=== PATIENT | female | born 1965 | race Caucasian/White ===

== ENCOUNTER → 2017-12-30 | Outpatient (CLI) | payer BC | LOC: M RAD 14:39 | DX: R04.2 Hemoptysis (principal); R91.8 Other nonspecific abnormal finding of lung field; I51.7 Cardiomegaly; Z98.1 Arthrodesis status | CPT/HCPCS: 71250 ==

== ENCOUNTER → 2017-12-31 | Outpatient (CLI) | payer BC | LOC: M RAD 14:39 | DX: Z12.31 Encounter for screening mammogram for malignant neoplasm of breast (principal) ==

== ENCOUNTER 2018-01-08 09:20 | Day surgery (SDC) | payer BC ==
[2018-01-08] MEDS ORDERED: ALBUTEROL SULFATE 2.5 MG/0.5 ML INH NEB SOLN INH ×2 (09:45)
[2018-01-08] MEDS ORDERED: D5W 1,000 ML IV ×2 (09:45)
[2018-01-08] MEDS ORDERED: LIDOCAINE 4% INJ 5 ML AMP INH ×2 (10:00)
[2018-01-08] MEDS ORDERED: NORCO, ANEXSIA 5/325MG TABLET (HYDROcodone/ACETAMINOPHEN) As Ordered ×2 (10:27)
[2018-01-08] MEDS: NORCO, ANEXSIA 5/325MG TABLET (HYDROcodone/ACETAMINOPHEN) PO ×2 (10:45)
[2018-01-08] MEDS ORDERED: EPINEPHrine 1MG/10ML SYRINGE 1.5IN As Ordered ×2 (10:48)
[2018-01-08] MEDS ORDERED: CETACAINE SPRAY 5GM As Ordered ×2 (10:48)
[2018-01-08] MEDS ORDERED: LR 1,000 ML IV ×4 (11:00→12:30)
[2018-01-08] MEDS ORDERED: fentaNYL 100 MCG/2 ML INJECTION (J3010) As Ordered ×2 (11:34)
[2018-01-08] MEDS ORDERED: MIDAZOLAM INJ 2 MG/2 ML VIAL (J2250) As Ordered ×2 (11:34)
[2018-01-08] MEDS ORDERED: NEOSTIGMINE 10 MG/10 ML VIAL (J2710) As Ordered ×2 (11:39)
[2018-01-08] MEDS ORDERED: ROCURONIUM BROMIDE 50 MG/5 ML VIAL As Ordered ×2 (11:39)
[2018-01-08] MEDS ORDERED: LIDOCAINE 2% INJ 100 MG/5 ML SDV (FOR ANES.) As Ordered ×2 (11:39)
[2018-01-08] MEDS ORDERED: GLYCOPYRROLATE INJ 0.2 MG/ML 2 ML VIAL As Ordered ×2 (11:39)
[2018-01-08] MEDS ORDERED: PROPOFOL 200 MG/20 ML VIAL As Ordered ×2 (11:39)
[2018-01-08] MEDS ORDERED: ONDANSETRON 4MG/2ML VIAL (J2405) IV ×2 (12:30)
[2018-01-08] MEDS ORDERED: fentaNYL 100 MCG/2 ML INJECTION (J3010) IV ×2 (12:30)
[2018-01-08] MEDS: ALBUTEROL SULFATE 2.5 MG/0.5 ML INH NEB SOLN INH ×2 (12:31)
== END 2018-01-08 13:53 | disposition home or self-care (01) ==
LOC: M SDC 09:20
DX: C34.12 Malignant neoplasm of upper lobe, left bronchus or lung (principal); I10 Essential (primary) hypertension; J44.9 Chronic obstructive pulmonary disease, unspecified; R04.2 Hemoptysis; R06.00 Dyspnea, unspecified; Z79.899 Other long term (current) drug therapy; F17.210 Nicotine dependence, cigarettes, uncomplicated; G47.33 Obstructive sleep apnea (adult) (pediatric); K21.9 Gastro-esophageal reflux disease without esophagitis; Z88.0 Allergy status to penicillin
CPT/HCPCS: 31623

== ENCOUNTER → 2018-01-14 | Outpatient (CLI) | payer BC | LOC: M PLARAD 10:06 | DX: C34.12 Malignant neoplasm of upper lobe, left bronchus or lung (principal) | CPT/HCPCS: 78815 ==

== ENCOUNTER → 2018-01-15 | Outpatient (CLI) | payer BC | LOC: M ONCR 08:51 | DX: C34.90 Malignant neoplasm of unspecified part of unspecified bronchus or lung (principal) ==

== ENCOUNTER → 2018-01-16 | Outpatient (REF) | payer BC ==
[2018-01-16 13:35] LABS: INR 0.92; PROTHROMBIN TIME 12.4 SECONDS (12.4-14.5)
[2018-01-16 13:36] LABS: PARTIAL THROMBOPLASTIN TIME 29.7 SECONDS (26.8-37.9)
== END ==
LOC: M LAB REF 12:41
DX: C34.12 Malignant neoplasm of upper lobe, left bronchus or lung (principal); Z72.0 Tobacco use
CPT/HCPCS: 85610

== ENCOUNTER → 2018-01-16 | Outpatient (CLI) | payer BC | LOC: M RAD 12:26 | DX: C34.90 Malignant neoplasm of unspecified part of unspecified bronchus or lung (principal); J90 Pleural effusion, not elsewhere classified | CPT/HCPCS: 71046 ==

== ENCOUNTER → 2018-01-21 | Outpatient (CLI) | payer BC ==
[~2018-01-21] MED LIST: ISOVUE-370 76% 100ML VIAL (Q9967) As Ordered
== END ==
LOC: M RAD 08:21
DX: C34.90 Malignant neoplasm of unspecified part of unspecified bronchus or lung (principal); Z88.0 Allergy status to penicillin; Z91.013 Allergy to seafood
CPT/HCPCS: Q9967

== ENCOUNTER → 2018-01-22 | Outpatient (CLI) | payer BC | LOC: M ONCR 08:55 | DX: C34.92 Malignant neoplasm of unspecified part of left bronchus or lung (principal) | CPT/HCPCS: G0463 ==

== ENCOUNTER 2018-01-28 10:43 | Outpatient (RCR) | payer BC | END 2018-01-31 | LOC: M ONCR 10:43 | DX: C34.02 Malignant neoplasm of left main bronchus (principal) | CPT/HCPCS: 77334 ==

== ENCOUNTER → 2018-01-28 | Outpatient (CLI) | payer BC | LOC: M RAD 09:03 | DX: C34.92 Malignant neoplasm of unspecified part of left bronchus or lung (principal) ==

== ENCOUNTER 2018-02-02 09:52 | Outpatient (RCR) | payer BC | END 2018-03-02 | LOC: M ONCR 09:52 | DX: C34.02 Malignant neoplasm of left main bronchus (principal) | CPT/HCPCS: 77300 ==

== ENCOUNTER → 2018-02-19 | Outpatient (CLI) | payer BC | LOC: M RAD 11:52 | DX: C34.12 Malignant neoplasm of upper lobe, left bronchus or lung (principal); R05 Cough | CPT/HCPCS: 71046 ==

== ENCOUNTER 2018-03-03 09:09 | Outpatient (RCR) | payer BC | END 2018-04-02 | LOC: M ONCR 09:09 | DX: C34.02 Malignant neoplasm of left main bronchus (principal) | CPT/HCPCS: 77336 ==

== ENCOUNTER 2018-04-03 10:40 | Outpatient (RCR) | payer BC | END 2018-05-02 | LOC: M ONCR 10:40 | DX: C34.02 Malignant neoplasm of left main bronchus (principal) | CPT/HCPCS: 77336 ==

== ENCOUNTER → 2018-04-23 | Outpatient (CLI) | payer BC | LOC: M RAD 13:53 | DX: C34.12 Malignant neoplasm of upper lobe, left bronchus or lung (principal); M85.80 Other specified disorders of bone density and structure, unspecified site | CPT/HCPCS: 71046 ==

== ENCOUNTER → 2018-05-07 | Outpatient (CLI) | payer BC | LOC: M RAD 08:05 | DX: R09.02 Hypoxemia (principal); I26.09 Other pulmonary embolism with acute cor pulmonale; I25.10 Atherosclerotic heart disease of native coronary artery without angina pectoris; R91.8 Other nonspecific abnormal finding of lung field | CPT/HCPCS: Q9967 ==

== ENCOUNTER → 2018-05-20 | Outpatient (CLI) | payer BC | LOC: M ONCR 10:04 | DX: C34.02 Malignant neoplasm of left main bronchus (principal) | CPT/HCPCS: G0463 ==

== ENCOUNTER → 2018-06-02 | Outpatient (CLI) | payer BC | LOC: M PLARAD 11:05 | DX: C34.12 Malignant neoplasm of upper lobe, left bronchus or lung (principal) | CPT/HCPCS: 78815 ==

== ENCOUNTER → 2018-07-02 | Outpatient (REF) | payer BC ==
[2018-07-02 18:29] LABS: FREE T4 1.16 NG/DL (0.76-1.46)
[2018-07-02 18:29] LABS: THYROID STIMULATING HORMONE 0.695 uIU/ML (0.358-3.740)
== END ==
LOC: M LAB REF 17:41
DX: Z51.81 Encounter for therapeutic drug level monitoring (principal); Z79.899 Other long term (current) drug therapy; C34.12 Malignant neoplasm of upper lobe, left bronchus or lung
CPT/HCPCS: 84443

== ENCOUNTER → 2018-07-29 | Outpatient (CLI) | payer BC | LOC: M RAD 10:55 | DX: M25.512 Pain in left shoulder (principal); C34.90 Malignant neoplasm of unspecified part of unspecified bronchus or lung | CPT/HCPCS: 71046 ==

== ENCOUNTER → 2018-07-29 | Outpatient (REF) | payer BC | LOC: M LAB REF 10:53 | DX: Z79.899 Other long term (current) drug therapy (principal); Z72.0 Tobacco use ==

== ENCOUNTER → 2018-07-31 | Outpatient (CLI) | payer BC | LOC: M RAD 07:50 | DX: R06.02 Shortness of breath (principal); C34.90 Malignant neoplasm of unspecified part of unspecified bronchus or lung; R91.8 Other nonspecific abnormal finding of lung field | CPT/HCPCS: Q9967 ==

== ENCOUNTER → 2018-08-12 | Outpatient (CLI) | payer BC | LOC: M ONCR 13:45 | DX: C34.02 Malignant neoplasm of left main bronchus (principal); Z99.81 Dependence on supplemental oxygen | CPT/HCPCS: G0463 ==

== ENCOUNTER → 2018-10-01 | Outpatient (CLI) | payer BC | LOC: M RAD 12:42 | DX: E05.00 Thyrotoxicosis with diffuse goiter without thyrotoxic crisis or storm (principal) | CPT/HCPCS: 78012 ==

== ENCOUNTER → 2018-10-23 | Outpatient (CLI) | payer BC ==
[~2018-10-23] MED LIST changes: +AZIT-12 PO; +GASTROGRAFIN SOLUTION 30ML (Q9963) As Ordered ONE; +IBUP200C25 PO; -ISOVUE-370 76% 100ML VIAL (Q9967) As Ordered; +ISOVUE-370 76% 100ML VIAL (Q9967) As Ordered ONE; +LOSA50TA5 PO; +LOSA50TA88 PO; +METO1TAB32 PO; +NICO21DI6 TD; +PANT20TA2 PO; +PANT40TA3 PO; +PRED10TA2 PO; +PROAAER10 INH; +SILV40CR EXT; +SING10TA32 PO; +SPIR1CAP INH; +SYMB16INH INH; +TYLE500T78 PO; +XARE20TA PO
--- NOTE | 2018-10-23 14:35 | REP ---
CT Head without contrast HISTORY: Headache COMPARISON: None Areas of decreased attenuation are present in the periventricular white matter. This represents small-vessel ischemic disease. There is no intraparenchymal hemorrhage, acute infarct, mass or midline shift. The ventricular system and cortical sulci are dilated consistent with minimal volume loss. There is no extra cerebral collection. There is no fracture. The visualized sinuses are clear. IMPRESSION: 1. Small vessel ischemic disease. 2. Minimal volume loss. Electronically Signed by Joao Bodn MD 10/23/2018 02:26 P
--- NOTE | 2018-10-23 15:16 | REP ---
CT CHEST WITH IV CONTRAST: HISTORY: Carcinoma of the lung, status post chemotherapy, radiation therapy, undergoing immunotherapy. Decreased oxygenation. Cough. Shortness of breath. Comparison CT studies are reviewed from July 31, 2018, May 07, 2018, and December 30, 2017. FINDINGS: There is some soft tissue fullness in the aorticopulmonary window region of the mediastinum adjacent to fibrotic-appearing left suprahilar lung tissue. This actually appears a little less prominent than on the most recent prior study of July 31, 2018. Previously, 3.4 cm, today 2.8 cm. No new mediastinal mass or adenopathy is observed. Some stable pericardial thickening is seen. There are three small new pulmonary parenchymal infiltrates, two in the left upper lobe and one in the superior segment of the left lower lobe. These are predominately alveolar infiltrates and may reflect pneumonia or conceivably postradiation pneumonitis. They are new from the prior study. The right lung remains essentially clear. No rib lesion is seen. Gonzalez rods remain in place in the thoracic spine. A right-sided Kothxh-B-Yuow catheter is noted. No extrathoracic mass or adenopathy is seen. No adrenal lesion is observed. IMPRESSION: There are three small new infiltrates in the left superior chest, question pneumonia versus developing postradiation fibrosis. The aorticopulmonary window region left suprahilar disease actually looks slightly smaller. Electronically Signed by Marv Carlisle MD 10/23/2018 05:01 P
--- NOTE | 2018-10-23 15:19 | REP ---
CT ABDOMEN AND PELVIS WITH IV AND ORAL CONTRAST: HISTORY: Lung carcinoma with headaches, cough, shortness of breath. CT CONTRAST DOSE: 100 mL of intravenous Isovue [address] FINDINGS: Preliminary digital manager intel radiograph shows an unremarkable bowel gas pattern. No adrenal lesion is seen. The liver is normal in size, homogeneous in texture. The spleen shows multiple granulomatous calcifications. No pancreatic abnormality is noted. The gallbladder is unremarkable. There is a cyst in the mid kidney on the left measuring 2.0 cm in greatest diameter. No retroperitoneal mass or adenopathy is seen. No uterine or adnexal abnormality is observed. Small and large intestinal bowel loops are unremarkable in the abdomen and pelvis. The appendix is surgically absent. IMPRESSION: No evidence of intra-abdominal metastatic disease. Electronically Signed by Marv Carlisle MD 10/23/2018 05:01 P
--- NOTE | 2018-10-23 16:50 | MEDONCTEEN ---
Date/Time of Encounter Date of Encounter: Oct 23, 2018 Time of Encounter: 16:47 Telephone Encounter Chantale reports mild cough, no fever, mild shortness of breath. CT scan today showed new infiltrates. Advised to start Prednisone and antibiotics. Prescription sent to pharmacy. Advised to go to ER if condition worsens or does not improve. HARINDER STEEL MD Oct 23, 2018 16:50
== END ==
LOC: M RAD 12:37
PROVIDERS: ATTEND Internal Medicine Medical Oncology
DX: C34.90 Malignant neoplasm of unspecified part of unspecified bronchus or lung (principal); R05 Cough; R06.02 Shortness of breath; R51 Headache
CPT/HCPCS: 70450; 71260; 74177; Q9963; Q9967

== ENCOUNTER → 2018-12-03 | Outpatient (REF) | payer BC ==
[~2018-12-03] MED LIST changes: -GASTROGRAFIN SOLUTION 30ML (Q9963) As Ordered ONE; -ISOVUE-370 76% 100ML VIAL (Q9967) As Ordered ONE; +PRED1TABL PO
== END ==
LOC: M LAB REF 11:45
PROVIDERS: ATTEND Internal Medicine Pulmonary Disease
DX: J44.9 Chronic obstructive pulmonary disease, unspecified (principal)

== ENCOUNTER → 2018-12-18 | Outpatient (CLI) | payer BC ==
[~2018-12-18] MED LIST changes: +MAGN400C PO
--- NOTE | 2018-12-18 14:45 | REP ---
SACRUM AND COCCYX, THREE VIEWS: HISTORY: Pain. There is no acute fracture or subluxation. The L5-S1 intervertebral disc is normal in height. IMPRESSION:There is no acute fracture or subluxation. Electronically Signed by Joao Bond MD 12/18/2018 03:13 P
--- NOTE | 2018-12-18 14:47 | REP ---
PELVIS, ONE VIEW: HISTORY: Pain. There is no acute fracture or dislocation. There is minimal narrowing of the hip joint spaces. IMPRESSION:There is no acute fracture or dislocation. Electronically Signed by Joao Bond MD 12/18/2018 03:14 P
== END ==
LOC: M RAD 13:49
PROVIDERS: ATTEND Internal Medicine Hematology & Oncology
DX: M53.3 Sacrococcygeal disorders, not elsewhere classified (principal); M54.18 Radiculopathy, sacral and sacrococcygeal region; Z85.118 Personal history of other malignant neoplasm of bronchus and lung

== ENCOUNTER → 2018-12-25 | Outpatient (CLI) | payer BC ==
--- NOTE | 2018-12-25 18:46 | REP ---
Whole body radionuclide bone scan: The patient has history of lung carcinoma. Comparison is 01/21/2018. There is bilaterally symmetric uptake in the acromioclavicular joints bilaterally compatible with osteoarthritis, unchanged. There is bilateral symmetric uptake in the ankles compatible with osteoarthritis. There is focal increased uptake in the cervical spine on the right. As an interval change. There is focal increased uptake in the lumbar spine on the left at the L4-5 level as an interval change. Impression: There is new focal uptake in the cervical spine and lumbar spine as described. There is degenerative uptake in the shoulders and ankles, unchanged. The study is performed with 21.8 mCi of technetium 99m labeled MDP. Electronically Signed by Jason Jenkins MD 12/25/2018 06:37 P
== END ==
LOC: M RAD 09:12
PROVIDERS: ATTEND Internal Medicine Hematology & Oncology
DX: M54.18 Radiculopathy, sacral and sacrococcygeal region (principal); R93.7 Abnormal findings on diagnostic imaging of other parts of musculoskeletal system; C34.90 Malignant neoplasm of unspecified part of unspecified bronchus or lung
CPT/HCPCS: 78306; A9503

== ENCOUNTER → 2019-01-05 | Outpatient (CLI) | payer BC ==
[~2019-01-05] MED LIST changes: +EMLA CREAM 5GM (LIDOCAINE/PRILOCAINE) As Ordered ONE; +ISOVUE-370 76% 100ML VIAL (Q9967) As Ordered ONE
--- NOTE | 2019-01-05 11:35 | REP ---
CT LUMBAR SPINE WITH IV CONTRAST: HISTORY: History of lung carcinoma. Most recent bone scan from December 25, 2018 showed a focal area of increased uptake in the lumbar spine on the left side at the L4-5 level. Comparison is made with prior abdomen CT study October 23, 2018, PET CT study June 02, 2018, and previous bone scan from December 25, 2018 as well as January 21, 2018. CT CONTRAST DOSE: 100 mL of intravenous Isovue [address] FINDINGS: The patient has Gonzalez rods in place in the thoracic spine bilaterally. There is partial collapse of the superior endplate of the L1 vertebral body as seen on CT study from 10/23/2018. There is approximately 25 % loss of anterior vertebral body heights. There is slight retropulsion of the posterior cortex of L1 superiorly. These findings are unchanged from the recent CT study of the abdomen. Vertebral body heights are otherwise preserved. There is a very subtle abnormality in the superior articular facet of the L5 vertebral body. A 1 cm area of subtle radiolucency is seen here with cortical thinning and partial disruption. This is felt to correspond with the area of new uptake on recent bone scan. I cannot exclude a 1 cm metastatic lesion. The adjacent L4-5 facet shows osteoarthritis and it is possible that this reflects a arthritis associated cyst. These do not usually erode the cortex. There is no adjacent soft tissue mass visible. No other focal bony destructive lesion is seen. There is a cyst visible in the left kidney unchanged. IMPRESSION: Subtle 1 cm radiolucency with overlying cortical thinning and erosion in the superior articular facet on the left side at the L5 vertebral body. This is felt to correspond to the radionuclide activity on bone scan. I cannot exclude a metastatic lesion. Repeat PET/CT study may be helpful for further evaluation. Alternatively, a percutaneous CT-guided needle biopsy could be contemplated although this would be a challenging location. Electronically Signed by Marv Carlisle MD 01/05/2019 02:42 P
--- NOTE | 2019-01-05 11:51 | REP ---
CT CERVICAL SPINE WITH IV CONTRAST: HISTORY: Abnormal findings on recent bone scan. Focus of increased uptake in the right mid cervical spine posteriorly. CT CONTRAST DOSE: 100 mL of intravenous Isovue [address] FINDINGS: There is osteoarthritic facet sclerosis and bony spurring in the right C 3-4 facet joint. This corresponds to location of the increased uptake on bone scan. No bony destructive lesion is seen by CT at this level or elsewhere. A developmentally bifid spinous process is noted at C5. There is minimal facet hypertrophy bilaterally in the mid cervical spine visible on coronal re-formation images but the right 3-4 facet shows the most pronounced involvement. There is an opacity in the parenchyma of the left lung apex consistent with postradiation change as seen on 10/23/2018 CT study of the chest. No other significant finding. IMPRESSION: Osteoarthritic facet hypertrophy most pronounced on the right at the C3-4 facet. This is felt to correspond with the area of increased uptake on radionuclide bone scan. No bony destructive lesion is appreciated. Electronically Signed by Marv Carlisle MD 01/05/2019 02:43 P
== END ==
LOC: M RAD 09:25
PROVIDERS: ATTEND Internal Medicine Hematology & Oncology
DX: R93.7 Abnormal findings on diagnostic imaging of other parts of musculoskeletal system (principal); M47.892 Other spondylosis, cervical region; Z85.118 Personal history of other malignant neoplasm of bronchus and lung
CPT/HCPCS: 72126; 72132; Q9967

== ENCOUNTER → 2019-01-11 | Outpatient (CLI) | payer BC ==
[~2019-01-11] MED LIST changes: -EMLA CREAM 5GM (LIDOCAINE/PRILOCAINE) As Ordered ONE; -ISOVUE-370 76% 100ML VIAL (Q9967) As Ordered ONE
--- NOTE | 2019-01-11 18:10 | REPMRS ---
Patient History The patient states she had a clinical breast exam in 2017. Patient is postmenopausal, had previous chest radiation therapy at age 52, has history of lung cancer at age 52, had previous chemotherapy at age 52, and is nulliparous. Family history of unknown cancer at age 50 or over in maternal grandfather, unknown cancer at age 50 or over in paternal grandfather. 15 pound weight loss due to chemo. Digital Mammo Screening Bilat: January 11, 2019 - Exam #: [id number] Bilateral CC and MLO view(s) were taken. Technologist: Meghann Liz, Technologist Prior study comparison: December 31, 2017, bilateral digital mammo screening bilat performed at [facility]. March 18, 2017, bilateral digital mammo screening bilat, performed at [facility]. FINDINGS: There are scattered fibroglandular densities. There has been no change in the appearance of the mammogram from the prior studies. There is a mild amount of residual fibroglandular tissue which is fairly symmetric. There is no interval development of dominant mass, architectural distortion, or clustered microcalcification suggestive of malignancy.There are scattered, small, benign calcifications of doubtful clinical significance. Scattered lymph nodes are seen in the left axilla. 3-D tomosynthesis shows no additional findings. No significant changes when compared with prior studies. Assessment: BI-RADS/ACR category 2 mammogram. Benign Findings. Recommendation Routine screening mammogram in 1 year (for women over age 40). This mammogram was interpreted with the aid of an FDA-approved computer-aided dectection system. A. Negative x-ray reports should not delay biopsy if a dominant or clinically suspicious mass is present. B. Four to eight percent of cancers are not identified by mammography. C. Adenosis and dense breast may obscure an underlying neoplasm. Electronically Signed By: Issac Damian MD 01/11/19 [id number]
== END ==
LOC: M RAD 15:02
PROVIDERS: ATTEND Nurse Practitioner Family
DX: Z12.31 Encounter for screening mammogram for malignant neoplasm of breast (principal); Z80.9 Family history of malignant neoplasm, unspecified; Z85.118 Personal history of other malignant neoplasm of bronchus and lung; Z92.21 Personal history of antineoplastic chemotherapy; Z92.3 Personal history of irradiation

== ENCOUNTER → 2019-01-14 | Outpatient (CLI) | payer BC ==
[~2019-01-14] MED LIST changes: +EMLA CREAM 5GM (LIDOCAINE/PRILOCAINE) As Ordered ONE; +GASTROGRAFIN SOLUTION 30ML (Q9963) As Ordered ONE; +ISOVUE-370 76% 125ML VIAL (Q9967 PER ML) As Ordered ONE
--- NOTE | 2019-01-15 03:44 | REP ---
Clinical: Carcinoma of the lung. Chest pain. Technique: Axial contrast enhanced images from the thoracic inlet to the upper abdomen with coronal and sagittal re-formations using 100 ml Isovue 370 intravenous contrast material. Comparison: 10/23/2018. Findings: Significant areas of consolidation with air bronchograms noted primarily involving the left upper lobe and to a somewhat lesser extent the lingula and left lower lobe which have a similar distribution to prior examination but have considerably increased in size. Right hemithorax demonstrates minimal suspected chronic change at the right base. No effusion. No pneumothorax. No obvious axillary, hilar, or mediastinal adenopathy is appreciated. Tracheobronchial tree appears relatively patent. Thoracic aorta, pulmonary vasculature and heart/pericardium are relatively stable with mild atherosclerotic changes again noted. No cardiomegaly. No significant pericardial effusion. Thyroid gland is normal. Musculoskeletal structures are stable. Gonzalez rods again noted. Hokhis-B-Drca identified with tip in the SVC. Impression: [id number] areas of consolidation primarily noted in the left upper lobe and to a somewhat lesser extent the lingula and left lower lobe. No significant adenopathy. Differential diagnosis includes but is not limited to multifocal pneumonia, recurrent neoplasm, and post radiation type changes. Electronically Signed by Timmy Jain MD 01/15/2019 03:35 A
--- NOTE | 2019-01-15 03:54 | REP ---
Clinical: Lung carcinoma. Technique: Axial contrast enhanced images from the lung bases to the pubic symphysis using oral (per protocol) and 100 ml Isovue 370 intravenous contrast material with precontrast and delayed images of the abdomen as well as coronal and sagittal re-formations. Comparison: 10/23/2018. Findings: Lung bases demonstrate minimal chronic changes at the right base. Visualized heart and pericardium grossly normal. Liver, pancreas, gallbladder, bilateral adrenal glands and right kidney are normal. Left kidney includes stable 1.8 cm simple cyst. Spleen demonstrates parenchymal calcifications consistent with prior granulomatous disease. The enteric system is without obstruction or acute inflammatory process. Pelvis demonstrates partially collapsed normal bladder and age-appropriate uterus/adnexa findings to suggest prior right oophorectomy. No pelvic fluid or ascites. No significant intraperitoneal or retroperitoneal adenopathy. No free air. Abdominal aorta without aneurysm or dissection. Surrounding musculoskeletal structures are intact. Gonzalez rods noted through the visualized thoracic spine. Impression: 1. No acute abdominopelvic pathology appreciated. 2. Stable simple left renal cyst. 3. No evidence for metastatic disease. No ascites. No adenopathy. No focal inflammatory changes. Electronically Signed by Timmy Jain MD 01/15/2019 03:45 A
== END ==
LOC: M RAD 13:47
PROVIDERS: ATTEND Nurse Practitioner Family
DX: R10.9 Unspecified abdominal pain (principal); C34.12 Malignant neoplasm of upper lobe, left bronchus or lung; J44.9 Chronic obstructive pulmonary disease, unspecified; N28.1 Cyst of kidney, acquired
CPT/HCPCS: 71260; 74178; Q9963; Q9967

== ENCOUNTER → 2019-01-20 | Outpatient (CLI) | payer BC ==
[~2019-01-20] MED LIST changes: +DOXY-350 PO; -EMLA CREAM 5GM (LIDOCAINE/PRILOCAINE) As Ordered ONE; -GASTROGRAFIN SOLUTION 30ML (Q9963) As Ordered ONE; -ISOVUE-370 76% 125ML VIAL (Q9967 PER ML) As Ordered ONE
--- NOTE | 2019-01-21 01:49 | REP ---
Clinical: Cough and history of lung cancer. Technique: PA and lateral. Comparison: 11/05/2018. Findings: Diffuse opacification involving the left hemithorax consistent with multifocal pneumonia. The mediastinum and cardiac silhouette are incompletely evaluated due to opacifications involving the left hemithorax. The right hemithorax is relatively well aerated and clear. No definite effusion or pneumothorax appreciated Gonzalez rods through the thoracic spine noted along with Ijshdq-C-Onum extending into the SVC. Skeletal structures are intact. Impression: Diffuse opacities involving the left hemithorax consistent with multifocal pneumonia. Electronically Signed by Timmy Jain MD 01/21/2019 01:41 A
== END ==
LOC: M RAD 12:12
PROVIDERS: ATTEND Nurse Practitioner Family
DX: J18.9 Pneumonia, unspecified organism (principal)

== ENCOUNTER → 2019-01-26 | Outpatient (CLI) | payer BC ==
--- NOTE | 2019-01-26 17:07 | REP ---
PET/CT: History: Restaging left upper lobe lung malignancy. Comparisons: Comparison is made with prior PET-CT studies from June 02, 2018 and January 14, 2018. Comparison chest CT study January 14, 2019. Comparison CT lumbar spine exam January 05, 2019. TECHNIQUE: 71 minutes following the intravenous injection of a 8.2 mCi dose of F-18 FDG, three-dimensional PET scintigraphy is acquired from the skull base to the proximal thighs. Triplanar noncontrast CT scanning is acquired through the same anatomic range for attenuation correction, and image registration with scan parameters optimized to minimize radiation exposure to the patient. PET scintigraphy and CT datasets were fused and displayed on a workstation with multiplanar and projection display capability. PET/CT Findings: Head and neck soft tissues are unremarkable. There is a right-sided Fewvtn-O-Hlha catheter again noted. The previously noted left hilar and aorticopulmonary we region hypermetabolic mass is no longer apparent. There is considerable consolidation and fibrosis in the left lung particularly in the upper lobe but also in the lingula and to a lesser extent the lower lobe. This consistent with postradiation pneumonitis and/or infectious pneumonitis. It is not typical of recurrent malignancy. Maximum standard uptake value within this pulmonary parenchymal opacification processes 6.28. Maximum standard uptake in the left hilar and perihilar region is decreased to 3.0. There is some mildly increased extrathoracic soft tissue uptake along the left chest again consistent with postradiation change. There is a new focus of hypermetabolic uptake involving the posterior elements on the left side at the L5 vertebral body. Maximum standard uptake value here is 26.14. This corresponds to the subtle radiolucency seen on recent lumbar spine CT study. It corresponds with the recent area of increased uptake on bone scan. No other abnormal skeletal hypermetabolic uptake focus is seen. Impression: Hypermetabolic uptake is seen in a new focus involving the posterior elements of the L5 vertebral body on the left consistent with a skeletal metastasis. Left hilar and left mediastinal uptake is improved. There is a post radiation pneumonitis and/or inflammatory pneumonitis pattern in the left lung. No other abnormal hypermetabolic uptake is seen. Electronically Signed by Marv Carlisle MD 01/26/2019 05:27 P
== END ==
LOC: M PLARAD 11:16
PROVIDERS: ATTEND Internal Medicine Hematology & Oncology
DX: C34.12 Malignant neoplasm of upper lobe, left bronchus or lung (principal); J84.10 Pulmonary fibrosis, unspecified; J70.0 Acute pulmonary manifestations due to radiation
CPT/HCPCS: 78815; A9552

== ENCOUNTER → 2019-02-01 | Outpatient (CLI) | payer BC ==
[~2019-02-01] MED LIST changes: +ISOVUE-370 76% 125ML VIAL (Q9967 PER ML) As Ordered ONE
--- NOTE | 2019-02-01 14:32 | REP ---
CT HEAD WITH AND WITHOUT CONTRAST: HISTORY: Lung carcinoma. CONTRAST: Isovue 370, 75 mL. COMPARISON: 01/21/2018 There is no intraparenchymal hemorrhage, mass or midline shift. There is no abnormal enhancement. The ventricular system is normal in appearance. There is no extracerebral collection. The visualized sinuses are clear. IMPRESSION: There is no intracranial lesion. Electronically Signed by Joao Bond MD 02/01/2019 02:34 P
== END ==
LOC: M RAD 13:27
PROVIDERS: ATTEND Internal Medicine Medical Oncology
DX: C34.90 Malignant neoplasm of unspecified part of unspecified bronchus or lung (principal)
CPT/HCPCS: 70470; Q9967

== ENCOUNTER → 2019-02-02 | Outpatient (CLI) | payer BC ==
[~2019-02-02] MED LIST changes: +ARTH650T17 PO; -ISOVUE-370 76% 125ML VIAL (Q9967 PER ML) As Ordered ONE
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
== END ==
LOC: M ONCR 08:48
PROVIDERS: ATTEND Radiology Radiation Oncology
DX: C79.51 Secondary malignant neoplasm of bone (principal); C34.12 Malignant neoplasm of upper lobe, left bronchus or lung; Z98.1 Arthrodesis status; R63.0 Anorexia; R53.83 Other fatigue; F41.9 Anxiety disorder, unspecified; H53.9 Unspecified visual disturbance

== ENCOUNTER 2019-03-01 14:43 | Outpatient (RCR) | payer BC ==
--- NOTE | 2019-02-10 11:29 | RADONC ---
RADIATION ONCOLOGY SIMULATION NOTE DATE: 02/10/2019 CHART NUMBER: [id number] Ms. Hurst was taken to the CT scan for CT simulation of her lumbar field. CT was accomplished without difficulty or discomfort. Radiation treatment planning is underway and radiation treatments will begin subsequently. An immobilization device was created without difficulty or discomfort. It will be used throughout the course of treatment. I was physically present throughout the course of CT simulation.
--- NOTE | 2019-03-03 08:30 | RADONC ---
RADIATION ONCOLOGY TREATMENT SUMMARY DATE: 03/01/2019 CHART NUMBER: [id number] DIAGNOSIS: Left lung cancer. STAGE: III C, T4N3M0 versus stage IV, T4N3M1 now clearly metastatic. ECOG PERFORMANCE STATUS: 0 TREATMENT SUMMARY: Ms. Hurst is a very pleasant, 53-year-old white female with the diagnosis of metastatic poorly differentiated adenocarcinoma of the left upper lobe who presented to us for consideration of palliative radiation therapy for bone metastasis to the L5 vertebral area. We treated the patient from L4 through the SI joints for a total dose of 3000 cGy delivered in 10 fractions of 300 cGy each over 13 elapsed days from 02/16/2019 through 03/01/2019. The patient's lumbar spine was treated on a linear accelerator utilizing a 15 MV photon by beam via single posterior field prescribed to a depth of 8 cm. Ms. Hurst tolerated her treatments quite well and completed therapy as prescribed without interruption. I have scheduled the patient to see me again in 1 month for further followup. She will also continue to be followed by her other physicians as well. Thank you for allowing us to participate in the care of this very pleasant woman. If I could be of any further assistance or provide you with any information, please free to contact me at anytime. As always, warm regards. cc: MD Maria Esther Schulte MD Robert Johnson, MD Rory Sears, DO [facility]
== END 2019-03-02 ==
LOC: M ONCR 14:43
PROVIDERS: ATTEND Radiology Radiation Oncology
DX: C34.02 Malignant neoplasm of left main bronchus (principal); C79.51 Secondary malignant neoplasm of bone

== ENCOUNTER → 2019-03-31 | Outpatient (CLI) | payer BC ==
--- NOTE | 2019-03-31 16:32 | RADONC ---
RADIATION ONCOLOGY FOLLOWUP NOTE DATE: 03/31/2019 CHART NUMBER: [id number] DIAGNOSIS: Left lung cancer. STAGE: III C, T4N3M0 versus IV, T4N3M1 now clearly metastatic. ECOG PERFORMANCE STATUS: 0 FOLLOWUP NOTE: Ms. 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 The patient presents today reporting that she is doing quite well with no complaints at this time related to her radiation therapy or disease. She has no difficulty breathing. She reports that the pain in her low back has improved significantly. She has no other areas of discomfort. REVIEW OF SYSTEMS: The patient's review of systems is positive for some residual low back pain but is otherwise noncontributory. Denies nausea, vomiting, fevers, chills, night sweats, diplopia, headaches, anxiety or depression, anorexia, weight loss, visual disturbances, chest pain, urinary or bowel difficulties, bone pain, or neurological problems. PHYSICAL EXAMINATION: The patient is a well-developed, well-nourished, 53-year-old white female in no acute distress. HEENT exam is normocephalic, atraumatic. Extraocular movements are intact. There is no palpable cervical, supraclavicular, infraclavicular, axillary, or inguinal lymphadenopathy present. Lungs are clear to auscultation and percussion. Heart has a regular rate and rhythm. Abdomen is benign with no hepatosplenomegaly, masses, or tenderness. Skeletal examination reveals no tenderness to pressure or percussion of the bony skeleton. Extremities reveal no clubbing, cyanosis, or edema. Neurologic exam is grossly intact, as is the remainder of the physical examination. ASSESSMENT: The patient is clinically JOHNSON at this time. She is being seen and treated every 2 weeks by her medical oncologist, Dr. Minor and therefore is being discharged from my followup except on a p.r.n. basis. cc: MD Maria Esther Schulte MD Robert Johnson, MD Rory Sears, DO [facility]
== END ==
LOC: M ONCR 14:33
PROVIDERS: ATTEND Radiology Radiation Oncology
DX: C34.90 Malignant neoplasm of unspecified part of unspecified bronchus or lung (principal); C79.9 Secondary malignant neoplasm of unspecified site

== ENCOUNTER → 2019-04-12 | Outpatient (CLI) | payer BC ==
--- NOTE | 2019-04-12 18:23 | REP ---
REASON: New onset right sided rib pain. Four views were obtained with frontal view of the chest. The accompanying frontal view of the chest has been compared to the prior two view examination of the chest of 01/2019. The accompanying frontal view of the chest is unchanged from the prior exam showing chronic changes but stable in appearance. Four views of the right ribs show no evidence of a definite acute fracture. IMPRESSION: Chronic lung field changes status quo. No evidence of an acute rib fracture. Electronically Signed by Pedro Pablo Simmons DO 04/13/2019 11:19 A
== END ==
LOC: M RAD 15:37
PROVIDERS: ATTEND Nurse Practitioner Family
DX: R07.81 Pleurodynia (principal); C34.12 Malignant neoplasm of upper lobe, left bronchus or lung

== ENCOUNTER → 2019-04-28 | Outpatient (CLI) | payer BC ==
--- NOTE | 2019-04-29 12:02 | REP ---
PET/CT: HISTORY: Restaging non-small cell lung carcinoma. The patient is status post chemotherapy. Oligometastatic disease at L5 status post palliative radiation therapy. Renewed low back pain symptoms and new left supraclavicular swelling. Rule out additional metastatic disease. COMPARISONS: Comparison PET/CT study is from January 26, 2019. TECHNIQUE: 59 minutes following the intravenous injection of a 8.26 mCi dose of F-18 FDG, three-dimensional PET scintigraphy is acquired from the skull base to the proximal thighs. Triplanar noncontrast CT scanning is acquired through the same anatomic range for attenuation correction, and image registration with scan parameters optimized to minimize radiation exposure to the patient. PET scintigraphy and CT datasets were fused and displayed on a workstation with multiplanar and projection display capability. PET/CT FINDINGS: There is a 7 cm lymph node in the supraclavicular fat of the left lower neck which displays discernible but non-hypermetabolic uptake, maximum SUV 1.45. In the left upper chest, there is extensive consolidation and volume loss in the left upper lobe lung parenchyma morphologically consistent with postradiation pneumonitis. There is some hypermetabolic uptake fairly diffusely in this opacified lung parenchyma and pleuroparenchymal reaction. Maximum standard uptake value ranges up to 5.22. There is some skeletal muscle non-hypermetabolic uptake anteriorly and posteriorly on the left also compatible with postradiation change/myositis. No other abnormal hypermetabolic uptake is seen with in the thorax. The previously noted L5 posterior element metastatic site is improved showing sclerosis and increased bone density suggesting healing. Maximum standard uptake value is 2.84. Previously, maximum standard uptake value here was 26.14. There is unfortunately, a new focus of moderately hypermetabolic uptake involving the pedicle and posterior elements on the right side at the T12 level. Maximum standard uptake value here is 6.76. This was not visible previously. No other suspicious skeletal hypermetabolic focus is seen. In comparison with the prior study, the left upper lobe lung consolidation and uptake are felt to be unchanged. L5 is improved. T12 is new. The equivocal supraclavicular lymph node appears to be unchanged. IMPRESSION: There is a new metastatic focus in the posterior elements on the right side at the T12 vertebral body level. The previously noted and recently treated L5 metastasis has an improved appearance. No other new focus. Postradiation changes are again noted in the left chest. Electronically Signed by Marv Carlisle MD 04/29/2019 02:23 P
== END ==
LOC: M PLARAD 13:35
PROVIDERS: ATTEND Internal Medicine Medical Oncology
DX: C34.12 Malignant neoplasm of upper lobe, left bronchus or lung (principal); C79.51 Secondary malignant neoplasm of bone
CPT/HCPCS: 78815; A9552

== ENCOUNTER → 2019-05-04 | Outpatient (CLI) | payer BC ==
--- NOTE | 2019-05-04 15:15 | RADONC ---
RADIATION ONCOLOGY NEW PATIENT CONSULTATION: DATE: 05/04/2019 CHART NUMBER:[id number] DIAGNOSIS: Her diagnosis is originally stage III B, T2b, N3, M0, left upper lobe poorly differentiated adenocarcinoma, PDL low, VeriStrat good, grab driver mutation negative, diagnosed January 2018. She is status post radiotherapy and currently on adjuvant durvalumab. She had an oligometastatic focus at L5 in January 2019, which was treated with palliative radiotherapy February 2019 and now has evidence of a new metastatic focus in her T12 vertebral body. STAGE: IV, T2b, N3, M1(bone). ICD-10 code: 79.51. ECOG PERFORMANCE STATUS: 0-1. HISTORY OF PRESENT ILLNESS: The patient is a 53-year-old lady who is fairly well known to our department as we have treated her for her known history of poorly differentiated adenocarcinoma involving the left upper lobe. She was treated both to the left upper lobe and to a metastatic lesion at L5. She has done quite well with both treatments as the area of the tumor primary, on a recent PET/CT scan, showed diffuse opacified lung parenchyma and a SUV value of 5.22. The L5 vertebral body had a metastatic focus, which was most recently treated and that metastatic focus had gone from an SUV of 26.14 to and SUV value of 2.84. Overall, the patient has felt quite well but most recently has had pain involving the right side, which she rates at a pain level of 6/10. On the PET scan, which was dated 04/28/2019, a focus of moderate hypermetabolic uptake is located on the right side of the T12 vertebral body corresponding to her area of pain. This area was not visible previously and there are no other suspicious skeletal hypermetabolic foci seen. In light of this new area of pain and increased activity involving the T12 vertebral body, she comes for evaluation of local regional radiotherapy. PAST MEDICAL HEALTH: Medical Issues: Cancer of the lung with bone metastasis. Hypertension. T7-T8 crush fracture in 1987 at the age of 22. L1 lumbar vertebral fracture. SURGICAL PROCEDURES: She had. Gonzalez rods placed in the past because of a T7-8 crush fracture in 1987. She had an appendectomy. Dilation and curettage times two. Right heel spur removed. Septoplasty. Spinal fusion T7-T8. Tonsillectomy. Tubal ligation. FAMILY HISTORY: Maternal grandmother from cancer involving the bone. Paternal grandfather from cancer involving the lung. SOCIAL HISTORY: She smoked one pack per day for 38-pack years. Alcohol history: She drinks only occasionally. ALLERGIES: Seafood causes shock and unconsciousness. PENICILLIN causes skin rashes and hives. PAIN RATING: She rates her pain is currently at a 6/10. CURRENT MEDICATIONS: - Ibuprofen p.r.n. - durvalumab 840 mg IV q. 2 weeks - albuterol - pantoprazole 40 mg - Tiotropium bromide 18 mcg - rivaroxaban 20 mg p.o. daily - budesonide 160-4.5 mcg inhaler 2 puffs b.i.d. REVIEW OF SYSTEMS: RESPIRATORY: The patient uses oxygen daily. She has an occasional cough, some dyspnea when she does not use her oxygen. Denies hemoptysis, hiccups. Denies pleuritic chest pain, occasional wheezing. NEUROLOGIC: Denies disorientation dizziness, gait, headaches, insomnia, memory loss neuropathy, paralysis, seizure activity, sensory deficits or stroke. INTEGUMENTARY: The patient has pain, which radiates along the right side of the paraspinal region causing pain, which she rates at a 6/8 and is a neuropathic type of pain. She denies alopecia, blisters, bruising, dry skin, facial burning, photosensitivity, pruritus or rash. IMMUNOLOGIC LYMPHATIC: Denies easy bruising or lymphadenopathy. GENITOURINARY: Denies dysuria, frequency genital masses, hematuria, incontinence, nocturia renal stones, sexual dysfunction, urgency, vaginal discharge or spotting. GASTROINTESTINAL: Denies changes in bowel habits, constipation, diarrhea, heartburn, dyspepsia, hematemesis, hematochezia, hemorrhoids, melanin, nausea, pain, satiety, early satiety or vomiting. HEENT: Denies ear pain, epistaxis, esophagitis, hearing difficulty, mouth dryness, oral bleeding, otitis, sinusitis, sputum production, stomatitis, taste alteration or tinnitus. ENDOCRINE: Denies diabetes hot flashes, menstrual irregularities or thyroid disease. CONSTITUTIONAL: Denies appetite changes, fatigue, fevers, lethargy, malaise, night sweats, rigors or significant weight change. CARDIOVASCULAR: Denies arrhythmias chest pain, dyspnea, edema, orthopnea, palpitation. BREASTS: The patient denies any breast masses, nipple discharge, nipple inversion or pain. VITALS: O2 saturation 100%. Diastolic 87, systolic 134, respirations 18, pulse 80, temperature 98.1, weight 190, height 60 inches. HEENT: Normocephalic. EOMs intact. PERRLA. Fundi benign. LYMPHATICS: No palpable overt lymphadenopathy. LUNGS: Clear but consistent with COPD. HEART: Regular without audible murmurs. ABDOMEN: Without evidence of hepatomegaly, masses, deep abdominal tenderness. EXTREMITIES: Without cyanosis, clubbing or edema. NEUROLOGIC: Examination grossly physiologic and nonfocal. IMPRESSION: Left upper lobe poorly differentiated adenocarcinoma PD-L1 low, VeriStrat good, grab driver mutation negative involving the left upper lobe diagnosed in January 2018 status post radiotherapy and chemotherapy currently on durvalumab. The patient underwent radiotherapy for a focus of disease at L5 and had previously undergone local regional radiotherapy to the tumor primary. She now has pain in the lower thoracic spine which radiates slightly to the paraspinal area. Most recent CT scan obtained on 04/28/2019 revealed evidence of a new lesion at the involving the T12 vertebral body on the right side. This radiologic findings is consistent with her clinical disease. PLAN OF RADIOTHERAPY: The patient would be an excellent candidate to receive palliative local regional radiotherapy to the T12 vertebral body for a total dose of 3000 cGy administered at conventional (300 cGy) fractions. Prior to treatment delivery localization will be accomplished upon our CT simulator and treatment portals defined by the use of multiple leaf collimators. The indications, possible side effects as well as all potential alternatives have been explained to the patient in detail. She understands and is willing to proceed as outlined. Thank you for allowing us the opportunity of participation in the management of this very fern lady. Most sincerely, CC: MD Franca Cintron
== END ==
LOC: M ONCR 09:42
PROVIDERS: ATTEND Radiology Radiation Oncology
DX: Z92.3 Personal history of irradiation (principal); Z85.9 Personal history of malignant neoplasm, unspecified

== ENCOUNTER 2019-06-01 13:43 | Outpatient (RCR) | payer BC ==
--- NOTE | 2019-05-13 16:00 | RADONC ---
RADIATION ONCOLOGY SIMULATION NOTE DATE: 05/12/2019 CHART NUMBER: [id number] SIMULATION NOTE: Ms. Hurst was taken to the CT scan for CT simulation of her thoracic spinal field. CT was accomplished without difficulty or discomfort. Radiation treatment planning is underway and radiation treatments will begin subsequently. An immobilization device was created and will be used throughout the course of treatment. It was created without difficulty or discomfort. I was physically present throughout the course of CT simulation.
--- NOTE | 2019-05-20 16:18 | MEDONCTEEN ---
MEDICAL ONCOLOGY TELEPHONE NOTE DATE OF SERVICE: 05/19/2019 I spoke with Chantale about Dr. Neftaly Johnson's recommendation for her to continue durvalumab indefinitely. She has had a second bone metastasis focus, starts palliative radiation today, but no other sites of disease and no visceral disease. She evolved two small bone metastases, symptomatic, sequentially, while on adjuvant durvalumab and we are currently recommending continuing durvalumab indefinitely. If she has another new id metastatic focus under durvalumab this would be an indication for treatment change. Nayana is agreeable with this plan, thanked me for the call. Begins palliative radiation today. Will postpone her durvalumab until she has completed radiation. Electronically Signed by Maria Esther Minor MD 05/20/2019 06:11 P DD: Maria Esther Minor MD 05/19/2019 08:32 A DT: dario 05/20/2019 04:12 P CC:
--- NOTE | 2019-05-26 08:08 | RADONC ---
RADIATION ONCOLOGY PROGRESS NOTE DATE: 05/24/2019 CHART NUMBER: [id number] Ms. Hurst is presently at a dose of 1200 cGy to her spine and is tolerating treatments quite well at this point with no complaints related to her radiation therapy. She is having no new spinal discomfort. The patient's review of systems is noncontributory. Denies nausea, vomiting, fevers, chills, night sweats, diplopia, headaches, anxiety or depression, anorexia, weight loss, visual disturbances, chest pain, urinary or bowel difficulties, bone pain, or neurological problems. PHYSICAL EXAMINATION: The patient's skin is in good condition with no evidence of moist or dry desquamation. The remainder of her physical exam remains unchanged. Ms. Hurst is tolerating treatments quite well and radiation will continue as scheduled.
--- NOTE | 2019-06-01 10:53 | RADONC ---
RADIATION ONCOLOGY PROGRESS NOTE: DATE: 05/31/2019 CHART NUMBER: [id number] Ms. Hurst is presently at a dose of 2700 cGy to her thoracic spine from the level of T11-L1. She is tolerating her treatments quite well with no complaints at this time related to her radiation therapy. REVIEW OF SYSTEMS: The patient's review of systems is positive for some discomfort present over the T12 region, mostly laterally but is otherwise noncontributory. She denies nausea, vomiting, fevers, chills, night sweats, diplopia, headaches, anxiety or depression, anorexia, weight loss, visual disturbances, chest pain, urinary or bowel difficulties, bone pain, or neurological problems. PHYSICAL EXAMINATION: The patient's skin is in good condition with no evidence of radiation change present. There is no moist or dry desquamation. The remainder of her physical exam remains unchanged. Ms. Hurst is tolerating treatments quite well and radiation is scheduled for completion tomorrow.
[2019-06-02] MEDS ORDERED: IBUP-1114 PO (09:47)
--- NOTE | 2019-06-02 15:10 | RADONC ---
RADIATION ONCOLOGY TREATMENT SUMMARY DATE: 06/01/2019 CHART NUMBER: [id number] Ms. Hurst is a very pleasant 53-year-old white female with the diagnosis of metastatic lung cancer who presented to us for consideration of palliative radiation therapy to her thoracic lumbar spine region. We treated the patient to the spine from the levels of T11 through L1 for a total dose of 3000 cGy delivered in 10 fractions of 300 cGy each over 13 elapsed days from 05/19/2019 through 06/01/2019. The patient's spine was treated on linear accelerator utilizing a 15 MV photon beam via single posterior field. Ms. Hurst tolerated her treatments quite well with no difficulties related to her radiation therapy. The patient is scheduled to see me again in 1 month for further followup and will continue to be followed and managed closely by her other physicians as well. Thank you for allowing us to participate in the care of this very pleasant woman. If I could be of any further assistance or provide you with any information, please feel free to contact me at anytime. As always, warm regards. cc: MD Neftaly Schulte MD Kathy Der, CARYN Minor MD
[2019-06-17] MEDS ORDERED: LEVA1TAB2 PO (12:58)
[2019-09-09] MEDS ORDERED: ACET500T15 PO (14:32)
[2019-09-27] MEDS ORDERED: PRED20TA PO (11:54)
[2019-11-16] MEDS ORDERED: FOLI400T PO (10:36)
== END 2019-06-02 ==
LOC: M ONCR 13:43
PROVIDERS: ATTEND Radiology Radiation Oncology
DX: C79.51 Secondary malignant neoplasm of bone (principal); C34.02 Malignant neoplasm of left main bronchus

== ENCOUNTER → 2019-06-23 | Outpatient (CLI) | payer BC ==
[~2019-06-23] MED LIST changes: +GASTROGRAFIN SOLUTION 30ML (Q9963) As Ordered ONE; +IBUP-1114 PO; +ISOVUE-370 76% 100ML VIAL (Q9967) As Ordered ONE; +LEVA1TAB2 PO
--- NOTE | 2019-06-24 09:35 | REP ---
CT of the chest with IV contrast: Comparison is 01/14/2019. The studies performed for COPD and non-small cell lung carcinoma. There is a large focal area of consolidation involving almost the entire left upper lobe except for a small portion of the left apex, similar appearance to the prior study. This extends into the superior segment of the left lower lobe and into the lingula as previously. This area of consolidation appears to have increased in size slightly. . This is nonspecific but could be a combination of post radiation change, recurrent neoplasm, fibrosis, pneumonia, or combination. The right lung is clear and unchanged. There is no mediastinal lymph node enlargement. There is no right hilar lymph node enlargement. The left hilus is obscured by the left upper lobe consolidation. There is no axillary lymph node enlargement. There are thoracic spine Gonzalez rods. This is unchanged. There is grade 1 compression of the T7 vertebral body. This is unchanged. There is grade 3 compression of the T8 vertebral body. This is unchanged. There is grade II concave compression of the L1 vertebral body superior endplate and advanced T12-L1 degenerative disc disease with disc vacuum phenomenon. This is unchanged. The thoracic aorta is unremarkable. Cardiac size is enlarged. There is no pericardial effusion. Impression: Large consolidation in the left upper lobe has slightly increased in size. There is no other interval change. Electronically Signed by Jason Jenkins MD 06/24/2019 09:26 A
--- NOTE | 2019-06-24 10:02 | REP ---
CT of the abdomen and pelvis with IV contrast, without bowel contrast: Comparison is 01/14/2019. Studies performed for non-small cell lung carcinoma. The visualized lung patterson demonstrate dependent atelectasis but are otherwise unremarkable. The hepatic parenchyma, gallbladder, pancreas, and spleen are unremarkable except for calcified granulomas in the spleen. This is unchanged. The adrenals are normal size. There are no adrenal masses. There is a 1.8 cm Bosniak type 1 s left renal simple cyst, unchanged. The kidneys are otherwise unremarkable. The abdominal aorta is unremarkable. There is no periaortic adenopathy or mass. The bowel and mesentery are unremarkable. Pelvis: There are two ligation clips in the pelvis. There are both on the right, unchanged. The uterus and adnexa are otherwise unremarkable. The bladder is unremarkable. There is no pelvic adenopathy or mass. No ascites. The pelvic bowel loops are unremarkable. There is grade II compression deformity of the L1 superior endplate. This is unchanged. There is advanced T12-L1 degenerative disc disease with this vacuum phenomenon. This is unchanged. There are spinal Gonzalez rods, unchanged. Impression: There is no evidence of adenopathy, mass or metastatic disease. There is chronic grade II compression deformity of the L1 superior endplate with T12-L1 advanced degenerative disc disease, unchanged. There are spinal Gonzalez rods, unchanged. Electronically Signed by Jason Jenkins MD 06/24/2019 09:53 A
== END ==
LOC: M RAD 15:22
PROVIDERS: ATTEND Internal Medicine Medical Oncology
DX: C34.12 Malignant neoplasm of upper lobe, left bronchus or lung (principal)
CPT/HCPCS: 71260; 74177; Q9963; Q9967

== ENCOUNTER → 2019-07-20 | Outpatient (CLI) | payer BC ==
[~2019-07-20] MED LIST changes: +ACET500T15 PO; +DOXY100C37 PO; +FOLI400T PO; -GASTROGRAFIN SOLUTION 30ML (Q9963) As Ordered ONE; -ISOVUE-370 76% 100ML VIAL (Q9967) As Ordered ONE; +MUCI600T31 PO; +PRED20TA PO; +PRED50TA PO
--- NOTE | 2019-07-20 19:07 | REP ---
Whole body PET CT scan for restaging of non-small cell lung carcinoma: Comparison is 04/28/2019: Neck and supraclavicular areas: The previously identified nonhypermetabolic left supraclavicular node is no longer identified . There are no hypermetabolic foci in the neck/supraclavicular area otherwise. Chest: Consolidation and atelectasis are again noted in the apex of the left upper lobe accompanied by mild stranding in the adjacent chest wall soft tissues, compatible with postradiation change. The the the maximal standard uptake value in this area today is 4.5, previously it was 5.2. There is again increased uptake in the right pedicle of the T12 of vertebra as previously. The maximal standard uptake value today is 5.6, previously it was 6.76. Abdomen, pelvis and upper thighs: The focal uptake in the posterior elements on the left of the T5 vertebra continue to decrease, standard uptake value today measures 1.5, non hypermetabolic. The standard uptake value previously was 2.84. The standard uptake in this location on 01/26/2019 was 26.14. There are no adrenal foci. There are no hepatic foci. There are no no other hypermetabolic foci in the abdomen, pelvis or upper thighs otherwise. Impression: The left supraclavicular hypermetabolic focus is no longer present. There is hypermetabolic uptake in the upper lobe of the left lung where there is suspected postradiation change. The standard uptake value has slightly decreased. The uptake in the right pedicle of the T12 of the vertebra has slightly decreased. None hypermetabolic uptake in the left pedicle of the L5 vertebra has decreased. There are no new hypermetabolic foci. The study is performed with 8.66 mCi of F 18 FDG. Electronically Signed by Jason Jenkins MD 07/20/2019 06:59 P
== END ==
LOC: M PLARAD 11:59
PROVIDERS: ATTEND Internal Medicine Medical Oncology
DX: C34.12 Malignant neoplasm of upper lobe, left bronchus or lung (principal)
CPT/HCPCS: 78815; A9552

== ENCOUNTER → 2019-07-21 | Outpatient (CLI) | payer BC ==
[~2019-07-21] MED LIST changes: -ACET500T15 PO; -DOXY100C37 PO; -FOLI400T PO; -MUCI600T31 PO; -PRED20TA PO; -PRED50TA PO
--- NOTE | 2019-07-22 11:49 | RADONC ---
RADIATION ONCOLOGY FOLLOWUP NOTE DATE: 07/21/2019 CHART NUMBER: [id number] DIAGNOSIS: Lung cancer. STAGE: Metastatic. ECOG PERFORMANCE STATUS: 0. FOLLOWUP NOTE: Ms. Hurst is a very pleasant 54-year-old white female with the diagnosis of a poorly differentiated metastatic adenocarcinoma of the left upper lobe who is presenting to me today for routine followup visit and 2 months post completion of palliative radiation therapy to her thoracic lumbar spine from the levels of T11-L1. The patient presents today reporting that generally she is doing well now, although now she does have some right-sided low back sciatic region pain. REVIEW OF SYSTEMS: The patient's review of systems is noncontributory. Denies nausea, vomiting, fevers, chills, night sweats, diplopia, headaches, anxiety or depression, anorexia, weight loss, visual disturbances, chest pain, urinary or bowel difficulties, bone pain, or neurological problems. PHYSICAL EXAMINATION: The patient is a well-developed, well-nourished female in no acute distress. HEENT exam is normocephalic, atraumatic. Extraocular movements are intact. There is no palpable cervical, supraclavicular, infraclavicular, axillary, or inguinal lymphadenopathy present. Lungs are clear to auscultation and percussion. Heart has a regular rate and rhythm. Abdomen is benign with no hepatosplenomegaly, masses, or tenderness. Breast examination reveals no masses or discharge bilaterally. Skeletal examination reveals no tenderness to pressure or percussion of the bony skeleton. Extremities reveal no clubbing, cyanosis, or edema. Neurologic exam is grossly intact, as is the remainder of the physical examination. ASSESSMENT: The patient had a PET scan done on 07/20/2019, which shows no new sites of metastatic disease. In addition, it shows improvement of several of her sites. In light of her improved PET scan and the fact that she is being followed and managed closely by her medical oncologist, Dr. Maria Esther Minor, I have discharged her from our followup except on a p.r.n. basis. cc: MD Maria Esther Schulte, MD Vic Ortega, DO [facility]
== END ==
LOC: M ONCR 12:32
PROVIDERS: ATTEND Radiology Radiation Oncology
DX: C34.02 Malignant neoplasm of left main bronchus (principal); C79.51 Secondary malignant neoplasm of bone

== ENCOUNTER → 2019-09-10 | Outpatient (CLI) | payer BC ==
[~2019-09-10] MED LIST changes: +ACET500T15 PO
--- NOTE | 2019-09-10 11:43 | REP ---
AP pelvis: Mineralization is normal. The sacroiliac articulations and hip articulations are unremarkable. There are pelvic calcifications, nonspecific, ureteral versus phleboliths. Tubal ligation clips are incidentally identified. Impression: Nonspecific pelvic calcifications. Otherwise, negative AP pelvis. Electronically Signed by Jason Jenkins MD 09/10/2019 11:35 A
--- NOTE | 2019-09-10 11:44 | REP ---
Right hip two views : There is no fracture or dislocation. Mineralization and joint spaces are normal. There are no calcifications or foreign bodies. Tubal ligation clips are incidentally identified in the pelvis. Impression: Negative Right hip . Electronically Signed by Jason Jenkins MD 09/10/2019 11:35 A
--- NOTE | 2019-09-10 13:50 | REP ---
Right tibia-fibula four views : There is no fracture or dislocation. Mineralization and joint spaces are normal. There are no calcifications or foreign bodies. Impression: Negative right tibia-fibula . Electronically Signed by Jason Jenkins MD 09/10/2019 11:36 A
== END ==
LOC: M RAD 10:52
PROVIDERS: ATTEND Internal Medicine Medical Oncology
DX: C34.90 Malignant neoplasm of unspecified part of unspecified bronchus or lung (principal)

== ENCOUNTER 2019-09-17 06:49 | Emergency (ER) | payer BC ==
[~2019-09-17] VITALS: Ht 152.4 cm; Wt 88.6 kg
[2019-09-17] MEDS ORDERED: ALBUTEROL SULFATE 2.5 MG/0.5 ML INH NEB SOLN INH ONE (07:15)
[2019-09-17] MEDS ORDERED: methylPREDNISolone INJ 125 MG/2 ML VIAL (J2930) IV ONE (07:15)
[2019-09-17] MEDS ORDERED: IPRATROPIUM 0.5MG/ALBUTEROL 2.5MG INH SOL UD 3ML (DUONEB)(J7620) NEB ONE (07:15)
--- NOTE | 2019-09-17 07:43 | REP ---
Clinical: Shortness of breath. Comparison: 01/20/2019. Findings: Large left upper lobe consolidation/mass again appreciated. Hazy generalized opacity of the left hemithorax is unchanged. Right hemithorax appears relatively clear. Ssfvvh-M-Rxaq with tip in the SVC noted. Gonzalez rods stable. Impression: Left upper lobe consolidation/mass and diffuse hazy infiltration to the left hemithorax unchanged. Electronically Signed by Timmy Jain MD 09/17/2019 07:35 A
[2019-09-17 07:49] LABS: ABG BASE EXCESS 2.4 (-2.0-2.0); ABG O2 SATURATION 99.4 % (95.0-99.0); ABG PARTIAL PRESSURE CO2 47.6 mmHg (35.0-45.0); ABG PARTIAL PRESSURE O2 185.4 mmHg (75.0-100.0); ABG STANDARD HCO3 26.6 MEQ/L (22.0-26.0); ABG TOTAL CO2 29.5 MEQ/L (22.0-29.0); ABG pH (ARTERIAL) 7.388 UNITS (7.350-7.450)
[2019-09-17 07:50] LABS: BASO # 0.1 10^3/uL (0.0-0.2); BASO % 0.8 % (0.0-1.0); EOS # 0.3 10^3/uL (0.0-0.5); EOS % 3.1 % (0.0-3.0); HEMATOCRIT 40.1 % (36.0-47.0); HEMOGLOBIN 12.8 g/dl (12.0-15.5); LYMPH # 1.3 10^3/uL (1.5-5.0); MEAN CORPUSCULAR HEMOGLOBIN 34.3 pg (27.0-33.0); MEAN CORPUSCULAR HGB CONC 31.9 g/dl (32.0-36.5); MEAN CORPUSCULAR VOLUME 107.5 fl (80.0-96.0); MONO # 0.8 10^3/uL (0.0-0.8); NEUTROPHILS # 5.9 10^3/uL (1.5-8.5); NEUTROPHILS % 70.3 % (36.0-66.0); PLATELET COUNT, AUTOMATED 281 10^3/uL (150-450); RED BLOOD COUNT 3.73 10^6/uL (4.00-5.40); WHITE BLOOD COUNT 8.4 10^3/uL (4.0-10.0)
[2019-09-17 08:22] LABS: ALBUMIN 3.4 GM/DL (3.2-5.2); ALT/SGPT 25 U/L (12-78); BILIRUBIN,DIRECT 0.1 MG/DL (0.0-0.2); BILIRUBIN,TOTAL 0.4 MG/DL (0.2-1.0); BLOOD UREA NITROGEN 6 MG/DL (7-18); CALCIUM LEVEL 9.1 MG/DL (8.5-10.1); CARBON DIOXIDE LEVEL 33 MEQ/L (21-32); CHLORIDE LEVEL 103 MEQ/L (98-107); CPK CREATINE PHOSPHOKINASE 47 U/L (26-192); CREATININE FOR GFR 0.84 MG/DL (0.55-1.30); GLOMERULAR FILTRATION RATE > 60.0 (>51); GLUCOSE, FASTING 103 MG/DL (70-100); MB/CK RELATIVE INDEX 2.13 (< OR =4); NT-PRO BNP 384 PG/ML (<125); POTASSIUM SERUM 4.4 MEQ/L (3.5-5.1); SODIUM LEVEL 141 MEQ/L (136-145); THYROXINE (T4) 9.6 UG/DL (4.5-12.0); TOTAL PROTEIN 6.9 GM/DL (6.4-8.2); TROPONIN I < 0.02 NG/ML (< 0.10)
[2019-09-17] MEDS ORDERED: ISOVUE-370 76% 100ML VIAL (Q9967) As Ordered ONE (08:29)
--- NOTE | 2019-09-17 09:18 | REP ---
CT pulmonary angiogram: With IV contrast. History: Chest pain right-sided. History of lung carcinoma. Comparison PET/CT imaging July 20, 2019. Comparison chest CT June 23, 2019. Contrast dose: 75 mL of Isovue [address] technique: Helical scanning is acquired and overlapping 1.5 mm and contiguous 3 mm axial images are reformatted. In addition, maximum intensity projection and multiplanar re-formation images are generated in sagittal and coronal imaging projections. 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 There is good opacification of the pulmonary arterial tree and the thoracic aorta. There is no evidence of aneurysm or dissection. No filling defect or vessel cutoff is seen in the pulmonary arterial tree to suggest pulmonary embolism. There is dense parenchymal consolidation again noted throughout the left upper lobe. This is essentially unchanged from the appearance on PET/CT July 20, 2019. No new infiltrate is appreciated. There is minimal linear fibrosis in the right lateral pleural angle unchanged. No pleural or pericardial effusion is appreciated. There are granulomatous calcifications in the spleen. There are two tiny accessory splenules. No focal liver lesion is seen. No adrenal masses observed. There is a cyst in the left kidney measuring 2.1 cm in diameter unchanged. No hilar or mediastinal mass or adenopathy is observed. There is a sclerotic lesion in the right pedicle and posterior elements of T12 which was previously radiolucent. No new lytic or sclerotic bony lesion is seen. Impression: No CT evidence of pulmonary embolus or other vascular abnormality. Extensive consolidation persists in the left upper lobe thought to be a post radiation pneumonitis. This is unchanged. No new infiltrate is seen. Healing sclerosis at the previously noted metastasis in the posterior elements of T12. Otherwise no acute abnormality. Electronically Signed by Marv Carlisle MD 09/17/2019 10:16 A
[2019-09-17] MEDS ORDERED: PRED50TA PO (10:14)
[2019-09-17] MEDS ORDERED: DOXY100C37 PO (10:14)
[2019-09-17 10:48] VITALS: BP 106/74
--- NOTE | 2019-09-17 19:02 | ECGEPIP ---
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
== END 2019-09-17 11:09 | disposition home or self-care (01) ==
LOC: M ED 06:49
DX: J44.1 Chronic obstructive pulmonary disease with (acute) exacerbation (principal); J40 Bronchitis, not specified as acute or chronic; C34.90 Malignant neoplasm of unspecified part of unspecified bronchus or lung; Z88.0 Allergy status to penicillin; Z91.018 Allergy to other foods; Z79.899 Other long term (current) drug therapy; Z79.01 Long term (current) use of anticoagulants; Z87.891 Personal history of nicotine dependence
CPT/HCPCS: 36600; 71045; 71275; 80048; 80076; 82550; 82553; 82803; 83605; 83880; 84436; 84443; 84484; 85025; 87040; 87486; 87581; 87633; 87798; 93005; 93041; 94640; 96374; 99285; J2930; Q9967

== ENCOUNTER 2019-09-22 11:09 | Emergency (ER) | payer BC ==
[~2019-09-22] VITALS: Ht 152.4 cm; Wt 86.4 kg
[~2019-09-22 11:09] MED LIST changes: +DOXY100C37 PO; +PRED50TA PO
[2019-09-22 11:42] LABS: VENOUS BASE EXCESS 0.9 (-2.0-2.0); VENOUS HCO3 27.2 MEQ/L (23.0-27.0); VENOUS O2 SATURATION 73.4 % (60.0-80.0); VENOUS PARTIAL PRESSURE CO2 49.9 mmHg (38.0-50.0); VENOUS PARTIAL PRESSURE O2 41.6 mmHg (30.0-50.0); VENOUS PH 7.354 UNITS (7.330-7.430); VENOUS STANDARD HCO3 24.7 MEQ/L; VENOUS TOTAL CO2 28.7 MEQ/L (24.0-28.0)
[2019-09-22 11:44] LABS: BASO % 0.5 % (0.0-1.0); EOS # 0.2 10^3/uL (0.0-0.5); EOS % 1.7 % (0.0-3.0); HEMATOCRIT 39.4 % (36.0-47.0); LYMPH # 0.8 10^3/uL (1.5-5.0); LYMPH % 8.6 % (24.0-44.0); MEAN CORPUSCULAR HEMOGLOBIN 34.9 pg (27.0-33.0); MEAN CORPUSCULAR VOLUME 105.6 fl (80.0-96.0); MONO % 11.7 % (0.0-5.0); NEUTROPHILS # 6.7 10^3/uL (1.5-8.5); PLATELET COUNT, AUTOMATED 300 10^3/uL (150-450); RED BLOOD COUNT 3.73 10^6/uL (4.00-5.40); WHITE BLOOD COUNT 8.8 10^3/uL (4.0-10.0)
--- NOTE | 2019-09-22 11:54 | REP ---
Single view chest: 09/22/2019. Indication: Dyspnea. Comparison: 09/17/2019. Findings: No significant changes are present. Large left upper lobe consolidation versus mass and more diffuse left lung haziness are redemonstrated. Right-sided Port-A-Cath is noted with the distal tip at the cavoatrial junction. Stabilization hardware is unchanged. The right lung is clear. Impression: No significant change compared to 5 days earlier. Electronically Signed by Juve Holden DO 09/22/2019 11:46 A
[2019-09-22 11:55] LABS: INR 2.65; PROTHROMBIN TIME 28.1 SECONDS (11.8-14.0)
[2019-09-22 12:20] LABS: ALBUMIN 3.3 GM/DL (3.2-5.2); ALT/SGPT 29 U/L (12-78); BILIRUBIN,DIRECT 0.2 MG/DL (0.0-0.2); BILIRUBIN,TOTAL 0.9 MG/DL (0.2-1.0); BLOOD UREA NITROGEN 17 MG/DL (7-18); CALCIUM LEVEL 8.7 MG/DL (8.5-10.1); CARBON DIOXIDE LEVEL 32 MEQ/L (21-32); CHLORIDE LEVEL 101 MEQ/L (98-107); CK-MB VALUE MASS < 1.0 NG/ML (<3.6); CPK CREATINE PHOSPHOKINASE 32 U/L (26-192); CREATININE FOR GFR 0.86 MG/DL (0.55-1.30); GLOMERULAR FILTRATION RATE > 60.0 (>51); GLUCOSE, FASTING 98 MG/DL (70-100); MB/CK RELATIVE INDEX 3.12 (< OR =4); NT-PRO BNP 727 PG/ML (<125); POTASSIUM SERUM 3.7 MEQ/L (3.5-5.1); SODIUM LEVEL 140 MEQ/L (136-145); THYROID STIMULATING HORMONE 0.821 uIU/ML (0.358-3.740); TOTAL PROTEIN 6.6 GM/DL (6.4-8.2); TROPONIN I < 0.02 NG/ML (< 0.10)
[2019-09-22] MEDS ORDERED: SODIUM CHLORIDE 0.9% INJ 10 ML SYR IV PRN (12:30)
[2019-09-22] MEDS ORDERED: MUCI600T31 PO (13:06)
[2019-09-22 13:16] VITALS: BP 153/82
--- NOTE | 2019-09-22 18:50 | ECGEPIP ---
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
[2019-09-27] MEDS ORDERED: PRED20TA PO (11:54)
== END 2019-09-22 13:17 | disposition home or self-care (01) ==
LOC: M ED 11:09
DX: J40 Bronchitis, not specified as acute or chronic (principal); C34.90 Malignant neoplasm of unspecified part of unspecified bronchus or lung; C79.51 Secondary malignant neoplasm of bone; I10 Essential (primary) hypertension; J44.9 Chronic obstructive pulmonary disease, unspecified; F41.9 Anxiety disorder, unspecified; Z79.899 Other long term (current) drug therapy; Z79.01 Long term (current) use of anticoagulants; Z88.0 Allergy status to penicillin; Z91.018 Allergy to other foods; Z87.891 Personal history of nicotine dependence

== ENCOUNTER → 2019-09-29 | Outpatient (CLI) | payer BC ==
[~2019-09-29] MED LIST changes: +ISOVUE-370 76% 100ML VIAL (Q9967) As Ordered ONE; +MUCI600T31 PO; +PRED20TA PO
--- NOTE | 2019-09-29 15:12 | REP ---
CT cervical spine with IV contrast: History: Lung cancer. Comparison CT study is from January 05, 2019. CT contrast dose 75 mL of intravenous Isovue 370. Comparison PET-CT study July 20, 2019. CT findings: There is a right sided Fagpye-I-Lchb catheter noted. No neck adenopathy or soft tissue mass is seen. No intraspinal mass or hematoma is seen. No focal bony destructive lesion is appreciated. Osteoarthritic facet hypertrophy is again noted most pronounced on the right at C3-4 unchanged from the comparison study of January 05, 2019. There are lesser osteoarthritic facet changes bilaterally at C4-5. Vertebral body heights are preserved. Mild degenerative changes are seen at the articulation between the dens and the anterior arch of C1. This is unchanged as well. The vertebral arteries are bilaterally patent, left dominant in size. This is unchanged. Impression: Mild degenerative disc and osteoarthritic facet disease. Facet arthropathy on the right at C3-4 is again seen unchanged from the January 05, 2019 study. No bony destructive lesion is appreciated. Electronically Signed by Marv Carlisle MD 09/29/2019 04:43 P
--- NOTE | 2019-09-29 15:16 | REP ---
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 2-week history of progressive dyspnea. Interscapular and right scapular area and chest wall pain. Pain with coughing. Comparison is made with recent CT chest September 17, [address] lumbar spine images from January 05, 2019 and the patient's most recent PET-CT study which was July 20, 2019. CT contrast dose: 75 mL of intravenous Isovue 370. CT findings: The known sclerotic focus in the right pedicle and right transverse process at the T12 vertebral body level is again seen unchanged from September 17, 2019 and unchanged from the July 23, 2019 PET-CT. This lesion was hypermetabolic. It is predominantly sclerotic. No other focal bony destructive or sclerotic lesion is seen. There is spray artifact from the Gonzalez distraction chu which are present bilaterally at the dorsal aspect of the thoracic spine from T3-T11. There is a mild gibbous deformity with partial collapse of T7-T8 as noted previously. No new fracture is seen. There is a partial wedge compression fracture deformity again noted L1 with Schmorl's node along its superior endplate and vacuum phenomenon in the T12-L1 disc. No paravertebral soft-tissue mass is appreciated. Abnormal parenchymal opacity is again seen in the left lung. Impression: Stable changes. Gonzalez distraction rods about the thoracic kyphosis T7-T8 fracture level in the thoracic spine. Partial wedge compression fracture deformity at L1 again seen. Stable sclerotic metastatic focus on the right pedicle at T12 which was observed on recent PET-CT. No new bony destructive lesion is appreciated. Electronically Signed by Marv Carlisle MD 09/29/2019 04:43 P
--- NOTE | 2019-09-29 15:39 | REP ---
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 2-week history of progressive dyspnea, chest wall and right scapular area pain. Comparison chest CT studies are reviewed dated September 17, 2019, June 23, 2019, and January 14, 2019. CT contrast dose: 75 mL of intravenous Isovue 370. CT findings: There is extensive infiltrate and atelectasis in the left upper lobe and in the superior portion of the left lower lobe, unchanged from comparison studies and consistent with post radiation changes. Air bronchograms are seen as before. No new hilar or lung mass is seen in this region. No other evidence of lung mass or significant nodule is seen. There is some pleuroparenchymal fibrosis in the right lung base. There is no CT evidence of pulmonary embolus or acute aortic disease. There is some spray artifact from Gonzalez stabilization rods placed in the thoracic spine for T7-T8 fracture. The heart is mildly prominent and there is some vascular calcification. A right-sided Raeuqj-B-Kubt catheter is seen. The known sclerotic metastatic focus in the posterior elements on the right at T12 is again seen, unchanged. No new bony lesion is appreciated. There is no evidence of new hilar or mediastinal adenopathy. There are a few scattered normal-sized stable lymph nodes including right paratracheal, right precarinal, epicardial fat, and left axillary lymph nodes. The largest of these is 8 mm in short axis dimension which is felt to be normal. These are unchanged. There are granulomatous calcifications in the spleen. There is a stable 2 cm cyst in the left kidney. A tiny accessory splenule is seen. No adrenal masses observed. Impression: Extensive opacity and volume loss in the left upper lobe consistent with postradiation changes. Sclerotic lesion in the posterior elements on the right at T12 again noted, unchanged from most recent prior studies. No new bony lesion. No radiographic evidence of progression. Electronically Signed by Marv Carlisle MD 09/29/2019 04:43 P
== END ==
LOC: M RAD 14:01
PROVIDERS: ATTEND Nurse Practitioner Family
DX: M50.31 Other cervical disc degeneration, high cervical region (principal); C34.92 Malignant neoplasm of unspecified part of left bronchus or lung
CPT/HCPCS: 71260; 72126; 72129; Q9967

== ENCOUNTER → 2019-10-08 | Outpatient (CLI) | payer BC ==
[~2019-10-08] MED LIST changes: -ISOVUE-370 76% 100ML VIAL (Q9967) As Ordered ONE
--- NOTE | 2019-10-08 15:03 | REP ---
WHOLE BODY BONE SCAN: Following the intravenous administration of 22 mCi of technetium 99m MDP, the patient's whole body is imaged in the anterior and posterior projections with additional oblique and lateral views obtained. Comparison made with prior study 12/25/2018. New small focus of increased uptake is seen in the superior aspect of the sternum compatible with a small metastatic focus. On CT of the chest recently dated 09/29/2019, there appears to be subtle ill-defined sclerosis in this region. There is focal intense increased uptake in the right pedicle of T12 consistent with a metastatic lesion. Focal intense increased uptake is seen in the intertrochanteric region of the proximal right femur consistent with a metastatic lesion. No other significant abnormal osseous uptake is seen. Renal and bladder activity are seen. IMPRESSION: Scintigraphic evidence of three metastatic lesions in the skeleton, specifically in the superior aspect of the sternum, the right pedicle of T12, and the proximal right femur. Electronically Signed by Jason Torres MD 10/08/2019 03:57 P
== END ==
LOC: M RAD 09:39
PROVIDERS: ATTEND Internal Medicine Medical Oncology
DX: C34.12 Malignant neoplasm of upper lobe, left bronchus or lung (principal); C79.51 Secondary malignant neoplasm of bone
CPT/HCPCS: 78306; A9503

== ENCOUNTER → 2019-10-13 | Outpatient (CLI) | payer BC ==
--- NOTE | 2019-10-13 21:40 | ECHO ---
DATE OF PROCEDURE: 10/13/2019 REFERRING PHYSICIAN: Maria Esther Minor MD PATIENT LOCATION: Outpatient. REASON FOR ECHOCARDIOGRAM: Left lung cancer. 2D MEASUREMENTS: IVS: 0.9 cm LV: 4.4 cm LVPW: 0.9 cm LA: 2.9 cm Aorta: 3.0 cm IVC: 1.5 cm DOPPLER MEASUREMENTS: Peak velocity across the aortic valve: 1.3 m/s Peak velocity across the LVOT: 0.88 m/s Mitral E: 0.98, Mitral A: 0.67 with a ratio of 1.5 2D COMMENTS: 1. Technically limited study due to poor acoustic window secondary to lung interference. 2. Normal left ventricular size, wall thickness, and global left ventricular systolic function. The estimated left ventricular systolic ejection fraction is 55-60%. 3. Normal left atrium. Normal right atrium and right ventricle. 4. The atrial septum appeared to be normal without evidence of defect or shunt. 5. Normal aortic root. 6. A small pericardial effusion was noted, no evidence of cardiac tamponade. 7. Mildly calcified aortic valve with normal leaflet excursion. Normal mitral valve, tricuspid valve, and pulmonic valve. The proximal pulmonary artery branches also appeared to be normal. 8. The inferior vena cava was normal in size, central venous pressure is (cut off). DOPPLER: It detects mild aortic regurgitation. Abnormal relaxation pattern was noted across the mitral valve annulus consistent with features of grade 2 left ventricular diastolic dysfunction, left ventricular end-diastolic pressure might be elevated. IMPRESSION 1. Normal global left ventricular systolic function. There are some features of grade 2 left ventricular diastolic dysfunction. 2. Aortic valve sclerosis with mild aortic regurgitation, but no aortic stenosis. 3. A small pericardial effusion was noted, no evidence of cardiac tamponade. 4. Not mentioned above, mild aortic regurgitation was noted with aortic valve sclerosis.
== END ==
LOC: M CARPUL 10:08
PROVIDERS: ATTEND Internal Medicine Medical Oncology
DX: C34.92 Malignant neoplasm of unspecified part of left bronchus or lung (principal); I31.3 Pericardial effusion (noninflammatory); I35.8 Other nonrheumatic aortic valve disorders

== ENCOUNTER → 2019-10-19 | Outpatient (CLI) | payer BC | LOC: M ONCR 09:50 | PROVIDERS: ATTEND Radiology Radiation Oncology | DX: C34.12 Malignant neoplasm of upper lobe, left bronchus or lung (principal); C79.51 Secondary malignant neoplasm of bone; Z88.0 Allergy status to penicillin; Z96.89 Presence of other specified functional implants; Z99.81 Dependence on supplemental oxygen ==

== ENCOUNTER → 2019-10-25 | Outpatient (CLI) | payer BC ==
[~2019-10-25] MED LIST changes: +GASTROGRAFIN SOLUTION 30ML (Q9963) As Ordered ONE; +ISOVUE-370 76% 100ML VIAL (Q9967) As Ordered ONE
--- NOTE | 2019-10-25 16:33 | REP ---
Clinical: Lung cancer. Restaging. Technique: Axial contrast enhanced images from the lung bases to the pubic symphysis using oral (per protocol) and 100 ml Isovue 370 intravenous contrast material with coronal and sagittal re-formations. Comparison: 06/23/2019. Findings: Lung bases are relatively clear. Visualized heart and pericardium normal. Liver, spleen, pancreas, gallbladder, bilateral adrenal glands and kidneys are relatively normal / stable. Splenic calcifications consistent with prior granulomas disease. 1.7 cm simple left renal cyst remains stable. The enteric system is without obstruction or acute inflammatory process. Pelvis demonstrates normal bladder and age-appropriate uterus/adnexa. No ascites. No free air. No intraperitoneal or retroperitoneal adenopathy. Visualized osseous structures demonstrate degenerative changes. Gonzalez rods noted through the visualized involving the visualized lower thoracic spine. There is an area of sclerosis involving the right T12 pedicle (image 31) as well as a sclerotic focus in the proximal right femur (image 131) which correspond to findings on nuclear medicine bone scan and are suspicious for metastatic disease. Sagittal images suggest subtle compression fracture involving L4 which represents a new finding and chronic stable compression deformity at L1. Impression: 1. Suspected osseous metastatic foci involving the right T12 pedicle and within the proximal right femur. 2. New mild compression deformity involving the superior endplate of L4. 3. No acute abdominopelvic pathology appreciated. Stable chronic findings as noted above. Electronically Signed by Timmy Jain MD 10/25/2019 04:25 P
== END ==
LOC: M RAD 12:51
PROVIDERS: ATTEND Internal Medicine Medical Oncology
DX: R93.7 Abnormal findings on diagnostic imaging of other parts of musculoskeletal system (principal); C34.92 Malignant neoplasm of unspecified part of left bronchus or lung
CPT/HCPCS: 74177; Q9963; Q9967

== ENCOUNTER → 2019-11-18 | Outpatient (CLI) | payer BC ==
[~2019-11-18] MED LIST changes: +FOLI400T PO; -GASTROGRAFIN SOLUTION 30ML (Q9963) As Ordered ONE; -ISOVUE-370 76% 100ML VIAL (Q9967) As Ordered ONE
--- NOTE | 2019-11-19 05:12 | REP ---
Clinical: Right knee pain. Technique: Axial noncontrast images through the right knee with coronal and sagittal re-formations. Findings: Coronal re-formations best demonstrate subtle increase sclerosis along the medial tibiofemoral compartment with associated mild joint space narrowing. The lateral tibiofemoral compartment and patellofemoral joint space appear essentially normal. No significant osteophytosis or chondrocalcinosis is appreciated and no free periarticular calcifications or loose bodies identified. The surrounding musculotendinous structures and subcutaneous tissues appear relatively normal. No fluid collection. No mass lesion. Impression: Very mild degenerative changes to the medial joint space. Electronically Signed by Timmy Jain MD 11/19/2019 05:03 A
== END ==
LOC: M RAD 08:32
PROVIDERS: ATTEND Physician Assistant
DX: M25.561 Pain in right knee (principal); M79.604 Pain in right leg

== ENCOUNTER 2019-11-29 13:42 | Outpatient (RCR) | payer BC ==
--- NOTE | 2019-11-11 11:30 | RADONC ---
RADIATION ONCOLOGY SIMULATION NOTE DATE: 11/10/2019 CHART NUMBER: [id number] SIMULATION NOTE: Ms. Hurst was taken to the CT scan for CT simulation of her right hip field. CT was accomplished without difficulty or discomfort. Radiation treatment planning is underway and radiation treatments will begin subsequently. Immobilization device was created which will be used throughout the course of treatment. It was created without difficulty or discomfort. I was physically present throughout the course of CT simulation.
--- NOTE | 2019-11-23 07:23 | RADONC ---
RADIATION ONCOLOGY PROGRESS NOTE DATE: 11/22/2019 CHART NUMBER: [id number] Ms. Hurst is presently at a dose of 1500 cGy to her right hip and is tolerating treatments quite well at this point with no significant difficulties related to her radiation therapy other than some tenderness in the muscles in the radiated field. REVIEW OF SYSTEMS: The patient's review of systems is positive for some muscle tenderness, but is otherwise noncontributory. She denies nausea, vomiting, fevers, chills, night sweats, diplopia, headaches, anxiety or depression, anorexia, weight loss, visual disturbances, chest pain, urinary or bowel difficulties, bone pain, or neurological problems. PHYSICAL EXAMINATION: The patient's skin is in good condition with no evidence of moist or dry desquamation. The remainder of her physical exam remains unchanged. Ms. Hurst is tolerating treatments quite well and radiation will continue as scheduled.
--- NOTE | 2019-12-01 08:11 | RADONC ---
RADIATION ONCOLOGY TREATMENT SUMMARY DATE: 11/29/2019 CHART #: [id number] DIAGNOSIS: Lung cancer. STAGE: Initial stage III C, T4, N3, M0, now clearly metastatic. ECOG PERFORMANCE STATUS: 0. TREATMENT SUMMARY: Ms. Hurst is a very pleasant 54-year-old white female with the diagnosis of metastatic poorly differentiated adenocarcinoma of the left upper lobe who presented to us for consideration of palliative radiation therapy to her right hip. We treated the patient to her right hip for a total dose of 3000 cGy delivered in 10 fractions of 300 cGy each over 13 elapsed days from 11/16/2019 to 11/29/2019. The patient's right hip was treated on a linear accelerator utilizing a 15 MV photon beam via anterior and posterior parallel opposed patterson. Ms. Hurst tolerated her treatments quite well and was able complete therapy as prescribed without interruption. I have scheduled the patient to see me again in 1 month for further followup. She will also continue to be followed by her other physicians as well. cc: MD Maria Esther Schulte MD Robert Johnson, MD Rory Sears, [facility]
== END 2019-12-03 ==
LOC: M ONCR 13:42
PROVIDERS: ATTEND Radiology Radiation Oncology
DX: C79.51 Secondary malignant neoplasm of bone (principal); C34.12 Malignant neoplasm of upper lobe, left bronchus or lung

== ENCOUNTER → 2019-12-17 | Outpatient (CLI) | payer BC ==
[~2019-12-17] MED LIST changes: +MAGICMW SSP; +ONDA8TAB10 PO; +PROC10TA4 PO
--- NOTE | 2019-12-17 17:12 | REPVR ---
PROCEDURE INFORMATION: Exam: MR Lumbar Spine Without and With Contrast. Exam date and time: 12/17/2019 3:25 PM Age: 54 years old Clinical indication: Patient HX: Low back pain HX CA; Additional info: Met nsclc, radicular pain TECHNIQUE: Imaging protocol: Multiplanar magnetic resonance images of the lumbar spine without and with intravenous contrast. Contrast material: PROHANCE; Contrast volume: 17 ml; Contrast route: 22G BUTTFERFLY; COMPARISON: CT Spine, lumbar w/contrast 01/05/2019 10:17 AM FINDINGS: Vertebrae: A compression fracture superior endplate of L1 with mild retropulsion is again noted. There is now a compression fracture superior endplate of L4 although there is no significant edema to suggest that it is acute but it has occurred in comparison to the 01/05/2019 CT. Mild decreased signal is seen within the vertebral bone marrow at the T11 L2 and L3 levels without compression fractures. Spinal cord: The conus medullaris is normal appearance at the L1-L2 level. T12-L1: The retropulsed bone fragment from the superior endplate mildly narrows the ventral spinal canal without significant stenosis or neural foraminal narrowing. L1-L2: No significant disc disease. No significant spinal canal stenosis. No neural foraminal stenosis. L2-L3: No significant disc disease. No significant spinal canal stenosis. No neural foraminal stenosis. L3-L4: The disc is herniated into the superior endplate of L4. No significant spinal canal stenosis. No neural foraminal stenosis. L4-L5: No significant disc disease. No significant spinal canal stenosis. No neural foraminal stenosis. L5-S1: No significant disc disease. No significant spinal canal stenosis. No neural foraminal stenosis. Probable bone graft material has been removed from the right iliac bone. Soft tissues: There is no abnormal contrast enhancement other than minimal along the superior endplate compression fractures of L1 and L4. IMPRESSION: There is a prior compression fracture superior endplate of L1 with a retropulsed bone fragment without evidence of neural compromise. A compression fracture superior endplate of L4 has occurred since the prior CT but no edema is seen to suggest that it is acute. There is lower signal within the bone marrow of T11-L2 and L3 which may be due to an infiltrating process however there are no compression fractures at these levels. No evidence of neural compromise in the lumbar spine. Electronically signed by: Huyen Patel On 12/17/2019 17:12:49 PM
== END ==
LOC: M PLARAD 14:13
PROVIDERS: ATTEND Internal Medicine Medical Oncology
DX: C34.90 Malignant neoplasm of unspecified part of unspecified bronchus or lung (principal); M54.10 Radiculopathy, site unspecified

== ENCOUNTER → 2019-12-22 | Outpatient (CLI) | payer BC ==
--- NOTE | 2019-12-22 12:11 | REP ---
PET/CT: History: Restaging left upper lobe lung carcinoma. Previous studies have shown bone metastasis. Comparisons: Comparison PET/CT studies are reviewed from July 20, 2019, April 28, 2019, and January 26, 2019. TECHNIQUE: 56 minutes following the intravenous injection of a 8.87 mCi dose of F-18 FDG, three-dimensional PET scintigraphy is acquired from the skull base to the proximal thighs. Triplanar noncontrast CT scanning is acquired through the same anatomic range for attenuation correction, and image registration with scan parameters optimized to minimize radiation exposure to the patient. PET scintigraphy and CT datasets were fused and displayed on a workstation with multiplanar and projection display capability. PET/CT Findings: There is a mildly hypermetabolic subcentimeter lymph node again seen in the left supraclavicular soft tissues with maximum SUV value 2.97. This is of uncertain significance. There is post radiation consolidation and collapse in the left upper lobe with mildly hypermetabolic uptake. Maximum standard uptake value in this postobstructive and postradiation change is 5.76 today. No abnormal pulmonary parenchymal hypermetabolic uptake is seen elsewhere in the chest. No abnormal uptake is seen within the liver, spleen or within the abdominal organs. The previously noted metastasis in the right pedicle at T12 shows healing sclerosis. This is no longer hypermetabolic, 1.67. Similarly, there is some sclerotic change in the known and treated metastasis in the left pedicle at L5 maximum SUV 1.51. However, there are multiple new foci of skeletal hypermetabolic uptake including the left superior acetabular margin, the left posterior acetabular margin (6.89), the right pubic bone (8.68), intertrochanteric region of the right proximal femur (6.89), and the subtrochanteric region of the left femur (4.70). Impression: There are multiple new foci of skeletal uptake consistent with bony metastasis in the pelvis and proximal femurs. The right pedicle at T12 and the left pedicle at L5 lesions show evidence of healing and are no longer hypermetabolic. Electronically Signed by Marv Carlisle MD 12/22/2019 04:27 P
== END ==
LOC: M PLARAD 08:18
PROVIDERS: ATTEND Internal Medicine Hematology & Oncology
DX: C34.12 Malignant neoplasm of upper lobe, left bronchus or lung (principal)
CPT/HCPCS: 78815; A9552

== ENCOUNTER → 2019-12-29 | Outpatient (CLI) | payer BC ==
[~2019-12-29] MED LIST changes: +ATIV1TAB7 PO; +CLAR10CA3 PO; +CLIN150C14 PO; +NYSTOI TOP
--- NOTE | 2019-12-30 11:18 | RADONC ---
RADIATION ONCOLOGY FOLLOWUP NOTE: DATE: 12/29/2019 CHART NUMBER: [id number] DIAGNOSIS: Left lung cancer. STAGE: Metastatic. ECOG PERFORMANCE STATUS: 0 Ms. 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 The patient presents today reporting that she is doing quite well with no complaints at this time related to her radiation therapy or disease other than shortness of breath and need for nasal oxygen. She is having no bone pain. REVIEW OF SYSTEMS: The patient's review of systems is positive for shortness of breath and oxygen need but is otherwise noncontributory. She denies nausea, vomiting, fevers, chills, night sweats, diplopia, headaches, anxiety or depression, anorexia, weight loss, visual disturbances, chest pain, urinary or bowel difficulties, bone pain, or neurological problems. PHYSICAL EXAMINATION: The patient is a well-developed, well-nourished female in no acute distress. HEENT exam is normocephalic, atraumatic. Extraocular movements are intact. There is no palpable cervical, supraclavicular, infraclavicular, axillary, or inguinal lymphadenopathy present. Lungs are clear to auscultation and percussion. Heart has a regular rate and rhythm. Abdomen is benign with no hepatosplenomegaly, masses, or tenderness. Skeletal examination reveals no tenderness to pressure or percussion of the bony skeleton. Extremities reveal no clubbing, cyanosis, or edema. Neurologic exam is grossly intact, as is the remainder of the physical examination. ASSESSMENT: The patient is clinically doing fairly well. A new PET scan was done, however and shows several new bony metastatic sites. The PET scan was done on December 22 2019. Her chemotherapy, the patient reports was only initiated sometime during the first week of December and therefore I tried to reassure her that it is too early to say whether or not this PET scan shows any type of progression through chemotherapy. Indeed at the time of the PET scan, the chemotherapy was only recently given to her. I have recommended that she continue with her systemic care with her medical oncologist, Dr. Maria Esther Minor at this point. After some further treatment, rescanning can be undertaken to truly evaluate the efficacy of her therapy. I have informed the patient that if she should develop any painful areas, she had contact me at anytime. In light of the fact that she is being managed and followed so closely by her medical oncologist and other physicians, I have discharged her from my followup except on a p.r.n. basis. I made clear that we are available to her at anytime if we could be of any assistance whatsoever. I have given her my cell phone number and office number here and asked her to call me should any painful areas develop. In the meantime she needs to continue with her systemic therapy as per instructions by her medical oncologist. I also let her know that we are more than glad to see her, if Dr. Minor should refer her back to us at anytime.
== END ==
LOC: M ONCR 13:46
PROVIDERS: ATTEND Radiology Radiation Oncology
DX: C34.02 Malignant neoplasm of left main bronchus (principal); C79.51 Secondary malignant neoplasm of bone

== ENCOUNTER → 2020-01-14 | Outpatient (CLI) | payer BC ==
--- NOTE | 2020-01-14 12:45 | REPVR ---
PROCEDURE INFORMATION: Exam: MR Head Without and With Contrast Exam date and time: 01/14/2020 11:47 AM Age: 54 years old Clinical indication: Condition or disease; History of cancer (specify primary cancer site): ; Primary cancer: Lung; Additional info: Eval for mets nsclc TECHNIQUE: Imaging protocol: MR of the head without and with intravenous contrast. Contrast material: PROHANCE; Contrast volume: 17 ml; Contrast route: IV; COMPARISON: CT Head W/O FOLL BY WITH CONTR 02/01/2019 2:14 PM FINDINGS: Brain: There is moderate generalized cerebral volume loss and a small number of scattered foci of white matter T2 hyperintensity, nonspecific but commonly secondary to chronic small vessel ischemic change. No acute ischemic infarction. No acute intracranial hemorrhage. Ventricles: No ventriculomegaly. Bones/joints: Unremarkable. Soft tissues: Unremarkable. Sinuses: Normal as visualized. No acute sinusitis. Mastoid air cells: Normal as visualized. No mastoid effusion. Orbits: Unremarkable. IMPRESSION: No evidence of intracranial metastatic disease. Electronically signed by: Alex Guardado On 01/14/2020 12:45:36 PM
== END ==
LOC: M PLARAD 10:18
PROVIDERS: ATTEND Internal Medicine Hematology & Oncology
DX: C34.92 Malignant neoplasm of unspecified part of left bronchus or lung (principal)

== ENCOUNTER → 2020-03-20 | Outpatient (CLI) | payer BC ==
[~2020-03-20] MED LIST changes: +BYST5TAB2 PO; +DILT120C78 PO; +FURO20TA2 PO; +GASTROGRAFIN SOLUTION 30ML (Q9963) As Ordered ONE; +ISOVUE-370 76% 100ML VIAL As Ordered ONE; +POTA10CA32 PO
--- NOTE | 2020-03-21 06:51 | REP ---
Clinical: History of metastatic lung cancer. Technique: Axial contrast enhanced images from the thoracic inlet to the upper abdomen with coronal and sagittal re-formations followed by CT of the abdomen and pelvis with coronal re-formations. 100 ml Isovue 370 intravenous contrast material administered without complication. Comparison: 09/29/2019. Findings: Chronic opacity involving the left upper lobe with air bronchograms and ipsilateral volume loss remains stable and consistent with post radiation type changes. Minimal scarring along the periphery of the right lower lung zone is also identified and stable. The bilateral aerated lung patterson are clear and without further consolidation, significant nodule or mass. No effusion. Tracheobronchial tree is relatively patent. No significant adenopathy identified. Thoracic aorta without aneurysm or dissection. Heart and pericardium are relatively normal. Limited upper abdomen demonstrates normal bilateral adrenal glands and stable 2 cm cyst in the left kidney. Impression: 1. Chronic stable post radiation type changes involving the left upper lobe and minimal scarring at the right base. 2. No new acute mediastinal or pleuroparenchymal process appreciated. Electronically Signed by Timmy Jain MD 03/21/2020 06:42 A
--- NOTE | 2020-03-21 06:59 | REP ---
Clinical: History of metastatic lung cancer. Restaging. Technique: Axial contrast enhanced images from the lung bases to the pubic symphysis using oral (per protocol) and 100 ml Isovue 370 intravenous contrast material with delayed images of the abdomen. Coronal and sagittal re-formations obtained. Comparison: 10/25/2019. Findings: Mild fatty infiltration to the liver suggested without focal hepatic lesion. Chronic benign splenic calcifications again noted. Pancreas, gallbladder, bilateral adrenal glands and kidneys are normal / stable. 2 cm simple left renal cyst again noted. The enteric system is without obstruction or acute inflammatory process. Pelvis demonstrates normal bladder and age-appropriate uterus/adnexa. No ascites. No free air. No intraperitoneal or retroperitoneal adenopathy. Abdominal aorta without aneurysm or dissection. Musculoskeletal structures demonstrate degenerative changes. Subtle increased areas of sclerosis involving the symphysis pubis, inferior pubic rami, right superior pubic ramus, left L5 pedicle, right T12 pedicle, body of T9 cannot exclude osseous metastatic disease. Impression: 1. Osseous metastatic disease cannot be excluded. 2. Stable simple 2 cm left renal cyst. 3. No further acute abdominopelvic pathology appreciated. No ascites. No adenopathy. No focal inflammatory stranding. Electronically Signed by Timmy Jain MD 03/21/2020 06:50 A
== END ==
LOC: M RAD 11:19
PROVIDERS: ATTEND Internal Medicine Medical Oncology
DX: C34.12 Malignant neoplasm of upper lobe, left bronchus or lung (principal); N28.1 Cyst of kidney, acquired; Z92.3 Personal history of irradiation
CPT/HCPCS: 71260; 74177; Q9963; Q9967

== ENCOUNTER → 2020-03-29 | Outpatient (CLI) | payer BC ==
[~2020-03-29] MED LIST changes: -GASTROGRAFIN SOLUTION 30ML (Q9963) As Ordered ONE; -ISOVUE-370 76% 100ML VIAL As Ordered ONE
--- NOTE | 2020-03-30 02:23 | REP ---
Clinical: Evaluate for possible metastatic disease/cortical destruction. Technique: AP and frog lateral views of the right and left femur. Findings: Visualized portions of the right and left femur demonstrate age-related changes at the knees. No acute fracture or dislocation. No obvious osseous abnormality. No periosteal reaction. Surrounding soft tissues are unremarkable. Impression: Normal appearance to the visualized bilateral femurs. Electronically Signed by Timmy Jain MD 03/30/2020 02:15 A
--- NOTE | 2020-03-30 02:30 | REP ---
Clinical: Rule out metastatic disease/cortical destruction. Technique: Frontal view of the pelvis with neutral and frog lateral views of the right and left hip. Findings: Frontal view of the pelvis demonstrates age-related degenerative changes and mild enthesopathy. Vague scattered "washed out appearance" to portions of the osseous structures are nonspecific and metastatic disease cannot be excluded. However, there are no obvious cortical destructive lesions, pathologic fractures, or significant ominous periosteal reaction noted. AP and frog lateral views of the bilateral hips again demonstrate mild age-related changes. No periosteal reaction, cortical destruction, lytic or blastic abnormalities noted. No evidence for acute or healed fractures. Impression: No obvious osseous metastatic foci by radiographic evaluation. Electronically Signed by Timmy Jain MD 03/30/2020 02:21 A
== END ==
LOC: M RAD 12:21
PROVIDERS: ATTEND Internal Medicine Medical Oncology
DX: C34.90 Malignant neoplasm of unspecified part of unspecified bronchus or lung (principal)

== ENCOUNTER → 2020-04-04 | Outpatient (CLI) | payer BC ==
--- NOTE | 2020-04-04 14:59 | REP ---
CHEST, TWO VIEWS: Two views of the chest are performed and compared to the prior CT of 03/20/2020. Consolidative opacity in the left upper lobe is unchanged. There is mild elevation of the left hemidiaphragm. There is stable blunting of the right costophrenic angle. No new findings are seen in either hemithorax. There is a prominent cardiac silhouette. Metallic rods are seen along the thoracic spine. Right central venous catheter is seen with the tip of the superior vena cava. IMPRESSION: Stable consolidative opacity left upper lobe. Electronically Signed by Jason Torres MD 04/05/2020 12:30 P
== END ==
LOC: M RAD 11:43
PROVIDERS: ATTEND Internal Medicine Medical Oncology
DX: C34.92 Malignant neoplasm of unspecified part of left bronchus or lung (principal)

== ENCOUNTER → 2020-04-05 | Outpatient (CLI) | payer BC ==
[~2020-04-05] MED LIST changes: +ISOVUE-370 76% 100ML VIAL As Ordered ONE
--- NOTE | 2020-04-05 15:11 | REPVR ---
PROCEDURE INFORMATION: Exam: CT Lumbar Spine With Contrast Exam date and time: 04/05/2020 2:13 PM Age: 54 years old Clinical indication: Pain and condition or disease; Other: Metastatic lung CA 2/ prog, new RT lung pn w/ SOB; Low back pain TECHNIQUE: Imaging protocol: Computed tomography images of the lumbar spine with intravenous contrast. Radiation optimization: All CT scans at this facility use at least one of these dose optimization techniques: automated exposure control; mA and/or kV adjustment per patient size (includes targeted exams where dose is matched to clinical indication); or iterative reconstruction. Contrast material: ISOVUR 370; Contrast volume: 100 ml; Contrast route: IV; COMPARISON: 1. SR - CT ABD PELVIS WITH CONTRAST 03/20/2020 1:28:[address] Spine, lumbar w/contrast 01/05/2019 10:17 AM FINDINGS: Vertebrae: Bone mineralization is decreased, suggestive of osteoporosis. A chronic L1 superior endplate compression fracture is noted. Moderate L1 vertebral body height loss is noted, slightly increased from the prior exam. There is minimal retropulsion of the posterior/superior corner of the L1 vertebra into the canal. A chronic appearing superior endplate compression fracture is also noted at L4. This is new since the prior lumbar spine CT, but unchanged from the recent abdomen CT. Moderate L4 vertebral body height loss is present. There is trace retropulsion of the posterior/superior corner of L4 into the canal. No other fracture is identified. There is a sclerotic lesion within the right pedicle and superior right facet of T12, new since the prior lumbar spine CT. Given the clinical history, this is concerning for metastatic disease. Mild vague sclerosis is also noted within the left pedicle and facet at L5. Discs/Spinal canal/Neural foramina: No significant disc protrusion. No severe spinal canal stenosis. No significant neural foraminal narrowing. Soft tissues: Unremarkable. IMPRESSION: 1. Chronic L1 and L4 compression fractures 2. Probable sclerotic metastases at T12 and L5 Electronically signed by: Shelton Sahu On 04/05/2020 15:10:42 PM
--- NOTE | 2020-04-05 15:20 | REPVR ---
PROCEDURE INFORMATION: Exam: CT Thoracic Spine With Contrast Exam date and time: 04/05/2020 2:13 PM Age: 54 years old Clinical indication: Pain in thoracic spine; Other: Metastatic lung CA 2/ prog, new RT lung pn w/ SOB; Prior surgery; Surgery date: 6+ months; Surgery type: Rods TECHNIQUE: Imaging protocol: Computed tomography images of the thoracic spine with intravenous contrast. Radiation optimization: All CT scans at this facility use at least one of these dose optimization techniques: automated exposure control; mA and/or kV adjustment per patient size (includes targeted exams where dose is matched to clinical indication); or iterative reconstruction. Contrast material: ISOVUE 370; Contrast volume: 100 ml; Contrast route: IV; COMPARISON: CT Spine, thoracic w/contrast 09/29/2019 2:19 PM FINDINGS: Vertebrae: Posterior Gnozalez rods are noted from T4 through T11. The surgical hardware is in place and intact. Chronic T7 and T8 compression fractures are noted. Moderate vertebral body height loss and kyphosis is centered around these levels. The this is unchanged from the prior exam. A chronic superior endplate compression fracture is also noted at L1. No acute fracture is seen. Bone mineralization is decreased, suggestive of osteoporosis. There is a sclerotic lesion within the right pedicle and superior right facet of T12. Given the clinical history, this is concerning for metastatic disease. Discs/Spinal canal/Neural foramina: Evaluation of the spinal canal is limited due to spray artifact from the Gonzalez rods. Soft tissues: Unremarkable. Lungs: Consolidation and severe volume loss is again noted in the left lung. IMPRESSION: 1. Stable sclerotic metastasis at T12 2. Chronic T7 and T8 compression fractures 3. Postoperative changes as discussed above Electronically signed by: Shelton Sahu On 04/05/2020 15:20:07 PM
--- NOTE | 2020-04-06 07:21 | REP ---
Clinical: History of metastatic lung carcinoma. Technique: Axial contrast enhanced images from the thoracic inlet to the upper abdomen with coronal and sagittal re-formations using 75 ml Isovue 370 intravenous contrast material. Comparison: 03/20/2020. Findings: Complete consolidation with air bronchograms involving the left upper lobe along with moderate consolidation with air bronchograms involving the left lower lobe are again identified and unchanged. The bilateral aerated lung patterson are relatively clear and without nodule or mass lesion appreciated. No pleural effusion. No pneumothorax. No obvious adenopathy. Atherosclerotic changes to the thoracic aorta and coronary arteries again noted without aortic aneurysm/dissection or cardiomegaly. No significant pericardial effusion. [id number] identified with tip in the SVC. Musculoskeletal structures demonstrate degenerative and postsurgical changes without focal osseous abnormality. Impression: 1. Stable areas of consolidation with air bronchograms involving the left upper lobe and left lower lobe likely representing postradiation type changes. 2. No acute mediastinal or pleuroparenchymal process appreciated. Electronically Signed by Timmy Jain MD 04/06/2020 07:12 A
== END ==
LOC: M RAD 13:47
PROVIDERS: ATTEND Internal Medicine Medical Oncology
DX: S32.010A Wedge compression fracture of first lumbar vertebra, initial encounter for closed fracture (principal); S32.040A Wedge compression fracture of fourth lumbar vertebra, initial encounter for closed fracture; S22.060A Wedge compression fracture of T7-T8 vertebra, initial encounter for closed fracture; C34.92 Malignant neoplasm of unspecified part of left bronchus or lung; X58.XXXA Exposure to other specified factors, initial encounter; Y92.9 Unspecified place or not applicable
CPT/HCPCS: 71260; 72129; 72132; Q9967

== ENCOUNTER → 2020-04-12 | Outpatient (CLI) | payer BC ==
[~2020-04-12] MED LIST changes: -ISOVUE-370 76% 100ML VIAL As Ordered ONE
--- NOTE | 2020-04-18 13:27 | RADONC ---
RADIATION ONCOLOGY FOLLOWUP NOTE DATE: 04/12/2020 CHART NUMBER: [id number] DIAGNOSIS: Left lung cancer. STAGE: III C, T4, N3, M0 versus stage IV, T4, N3, M1, now clearly metastatic. ECOG PERFORMANCE STATUS: 0 FOLLOWUP NOTE: Ms. 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 She completed a course of radiation therapy with us on November 29, 2019 to her right hip. The patient came in today complaining of back pain when she gets up. She reports that it comes across her pelvis and hips bilaterally. It is okay when she is standing or sitting but it definitely effects her somewhat when she gets up. Otherwise, she is doing fairly well. REVIEW OF SYSTEMS: The patient's review of systems is positive for back pain but is otherwise noncontributory. Denies nausea, vomiting, fevers, chills, night sweats, diplopia, headaches, anxiety or depression, anorexia, weight loss, visual disturbances, chest pain, urinary or bowel difficulties, bone pain, or neurological problems. PHYSICAL EXAMINATION: The patient is a well-developed, well-nourished 54-year-old male white female in no acute distress. HEENT exam is normocephalic, atraumatic. Extraocular movements are intact. There is no palpable cervical, supraclavicular, infraclavicular, axillary, or inguinal lymphadenopathy present. Lungs are clear to auscultation and percussion. Heart has a regular rate and rhythm. Abdomen is benign with no hepatosplenomegaly, masses, or tenderness. Skeletal examination reveals no tenderness to pressure or percussion of the bony skeleton. Extremities reveal no clubbing, cyanosis, or edema. Neurologic exam is grossly intact, as is the remainder of the physical examination. ASSESSMENT: I had a very lengthy discussion with this patient and have reviewed her CT scans and plain x-rays extensively. I have also reviewed our radiation treatment records. We treated the patient from T11 through L1. We also treated the patient from L4 through the SI joints. We treated the patient's right hip as well as her left lung and upper thoracic vertebral bodies. Review of a slew of her CT scans and other x-rays reveals that there are lesions, compression issues and abnormalities at T12, T9, L5 as well as the right pubic ramus. Also, at L1 and L4. All of these areas of concern on her CT scans appear to be in the previously radiated patterson. Some of them show vertebral body height loss and endplate compression fractures. There is also retropulsion of the posterior/superior corner of the L4 vertebral body into the canal. Because of all of these issues with her back as well as a previous history of trauma with back injuries I am not sure that this pain is cancer related at this point. To clarify that I am not sure that this is an acute new issue, but rather a combination of previous damage and metastatic disease followed by radiation. I have set the patient up for MRIs to be undertaken at [facility] of her lumbosacral spine region. Due to the surgical implanted metal in her upper back she cannot have an MRI here according to her radiologist, but they can be done at [facility]. I suspect that an MRI may assist us in differentiating whether or not her acute problems are from fractures, disc issues, retropulsion, or new malignancies. I have scheduled the patient to come back to us following her MRI for further evaluation and discussion. cc: MD Maria Esther Schulte MD Robert Johnson, MD Rory Sears, DO [facility]ENTERGen[facility]
== END ==
LOC: M ONCR 13:48
PROVIDERS: ATTEND Radiology Radiation Oncology
DX: C34.02 Malignant neoplasm of left main bronchus (principal); C79.51 Secondary malignant neoplasm of bone

== ENCOUNTER → 2020-07-18 | Outpatient (CLI) | payer BC ==
[~2020-07-18] MED LIST changes: +CEPH500C PO; +DILT180C78 PO; +FLUC150T PO; +MAGN500T2 PO; +MOBI4TAB PO; -PANT20TA2 PO; +PANT20TA6 PO; +PANT40TA29 PO; -PANT40TA3 PO; +XARE10TA PO
--- NOTE | 2020-07-21 10:07 | REP ---
PET CT STUDY HISTORY: Restaging left upper lobe lung carcinoma. COMPARISON: PET CT studies are reviewed from 07/20/2019 and 12/22/2019. TECHNIQUE: 49 minutes following the intravenous injection of an 8.26 mCi dose of F18 fluorodeoxyglucose, 3D PET CT images are acquired from the skull base to the proximal thighs. PET CT FINDINGS: The previous study from 12/22/2019 showed multiple new skeletal metastatic sites. There is substantial improvement. Healing sclerotic changes have evolved on bone window settings at the sites of the multiple prior metastatic foci seen in December. There is no longer hypermetabolic uptake at these sites. There is asymmetrical ill-defined area of slightly increased uptake in the left superior acetabular region, unchanged from the comparison study. This may reflect or be associated with hip arthritis. Standard uptake value (SUV) value is fairly increased, but similar to the prior study, at 3.23. The acetabular metastatic site seen previously shows essentially normal standard uptake value (SUV) value of 2.28. There is an equivocal focus of very slightly increased uptake in the subtrochanteric femur posterior cortex on the left where maximum SUV value is 3.83. No definite bony destructive lesion. No other new site of abnormal skeletal uptake is seen. In the abdomen and pelvis, there is normal hepatic, splenic, gastrointestinal, and genitourinary fluorodeoxyglucose (FDG) accumulation. No abnormal hypermetabolic uptake is seen in the abdomen or pelvis. In the chest, there is mildly hypermetabolic uptake again noted throughout chronically collapsed, consolidated, and fibrotic left upper lobe lung. Mildly increased metabolic activity is again seen. Maximum standard uptake value today, 5.32. These changes are most compatible with post-radiation pneumonitis and are stable when compared with the prior study. No new hypermetabolic uptake focus is seen within the thorax. There is a right-sided Infusaport catheter. Head and neck soft tissues are unremarkable. IMPRESSION: Significant improvement compared to most recent prior PET CT study 12/22/2019. No definite new metastatic site. MTDD
== END ==
LOC: M PLARAD 08:28
PROVIDERS: ATTEND Internal Medicine Medical Oncology
DX: C34.12 Malignant neoplasm of upper lobe, left bronchus or lung (principal)
CPT/HCPCS: 78815; A9552

== ENCOUNTER → 2020-10-02 | Outpatient (REF) | payer MEDICARE, BC ==
[~2020-10-02] MED LIST changes: +BREO1INH3 PO
[2020-10-02 17:42] LABS: BACTERIA, URINE AUTO NEGATIVE (NEGATIVE); MUCUS, URINE SMALL (NEGATIVE); RBC, URINE AUTO 0 /HPF (0-3); SQUAMOUS EPITHELIAL CELL UR AU 2 /HPF (0-6); WBC, URINE AUTO 1 /HPF (0-3)
== END ==
LOC: M LAB REF 16:59
PROVIDERS: ATTEND Internal Medicine Nephrology
DX: N17.9 Acute kidney failure, unspecified (principal)

== ENCOUNTER → 2020-10-10 | Outpatient (CLI) | payer BC, MEDICARE ==
[~2020-10-10] MED LIST changes: +ASPI81CH33 PO; -CLIN150C14 PO; +CLIN150C15 PO
--- NOTE | 2020-10-11 09:19 | REP ---
INDICATION: RESTAGING LUNG CANCER C34.12. Metastatic adenocarcinoma of the lung a left upper lobe with skeletal metastases. COMPARISON: Comparison is made with PET-CT studies dating back to January 14, 2018. The most recent study is July 18, 2020.. TECHNIQUE: Fifty minutes following the intravenous injection of a 8.21 mCi dose of F-18 FDG, three-dimensional PET scintigraphy is acquired from the skull base to the proximal thighs. Triplanar noncontrast CT scanning is acquired through the same anatomic range for attenuation correction, and image registration with scan parameters optimized to minimize radiation exposure to the patient. PET scintigraphy and CT datasets were fused and displayed on a workstation with multiplanar and projection display capability. FINDINGS: Head and neck soft tissues are unremarkable. There is mild metabolic activity again noted in the collapsed and consolidated left upper lobe which appears stable compared to prior study. Maximum standard uptake value in this region is 5.44, unchanged from the prior study. No new hypermetabolic uptake focus is seen in the chest. No abnormal hypermetabolic uptake is seen in the abdomen or pelvis. No abnormal adrenal uptake is seen. In the skeleton the previously noted metastatic sites show evidence of sclerosis as before. There is slightly asymmetric uptake in the marrow of the left subtrochanteric femur again noted unchanged from the prior study no cortical destructive lesion. Maximum standard uptake value is 3.97, previously 4.4. This is felt to be unchanged. No other abnormal hypermetabolic uptake is seen in any portion of the axial or visualized appendicular skeleton. No new lesion is seen. IMPRESSION: Stable changes. No abnormal hypermetabolic uptake is seen in any of the previously noted skeletal sites. No new skeletal site is seen. Stable changes in the chest. No other suspicious uptake. <Electronically signed by Wilfrido Carlisle > 10/11/20 0932
== END ==
LOC: M PLARAD 09:26
PROVIDERS: ATTEND Internal Medicine Medical Oncology
DX: C79.51 Secondary malignant neoplasm of bone (principal); C34.12 Malignant neoplasm of upper lobe, left bronchus or lung
CPT/HCPCS: 78815; A9552

== ENCOUNTER → 2020-11-14 | Outpatient (CLI) | payer BC, MEDICARE | LOC: M LABSMTC 14:54 | PROVIDERS: ATTEND Family Medicine | DX: Z20.822 Contact with and (suspected) exposure to COVID-19 (principal) ==

== ENCOUNTER → 2020-12-08 | Outpatient (REF) | payer BC, MEDICARE | LOC: M LAB REF 16:37 | PROVIDERS: ATTEND Internal Medicine Nephrology | DX: I50.22 Chronic systolic (congestive) heart failure (principal) ==

== ENCOUNTER 2020-12-23 11:33 | Inpatient (IN) | payer BC, MEDICARE ==
[~2020-12-23] VITALS: Ht 152.4 cm; Wt 83.7 kg
[~2020-12-23 11:33] MED LIST changes: -FOLI400T PO; +FOLI400T13 PO
[2020-12-23 13:00] VITALS: BP 126/75
[2020-12-23] MEDS ORDERED: IPRATROPIUM 0.5MG/ALBUTEROL 2.5MG INH SOL UD 3ML (DUONEB) NEB PRN (13:15)
[2020-12-23] MEDS ORDERED: ASPI81TA26 PO (13:54)
[2020-12-23] MEDS: IPRATROPIUM 0.5MG/ALBUTEROL 2.5MG INH SOL UD 3ML (DUONEB) NEB SCH ×2 (14:02→20:24)
--- OUTSIDE RECORDS SUMMARY | 2020-12-23 14:03 | CCD | Continuity of Care Document ---
Author Author Chantale BLAKE P. C. Organization Unknown Address [address] [place] [id number] Phone [phone] Care Team Providers Care Director [employer] Name Role Phone OSMEL ALVAREZ M.D. P.C. AUTM [phone] Social History Type Date Description Comments Sex Unknown Allergies, Adverse Reactions, Alerts Active Allergies Reaction Severity Comments Date Penicillin V 08/10/2020 Seafood 08/10/2020 Medications Active Medications SIG Qnty Indications Ordering Provide r Date Mag-200 200mg Tablets 6 tabs daily Osmel Alvarez M.D[facility] 12/12/[address] 1 by mouth every day Osmel Alvarez [facility] 021 Breo Ellipta 200-25mcg/Inh Aerosol Osmel Alvarez M[facility] 11/07/2020 Furosemide 20mg Tablets Take One Tablet By Mouth Daily 5 days a week Osmel Alvarez M.D[facility] P. C. 08/15/2020 Bystolic 5mg Tablets [facility] Diltiazem HCL ER Coated Beads 180mg Caps ER 24HR Take One Tablet By Mouth Daily 90caps Osmel ford M.D., P.C. Xarelto 10mg Tablets Take One Tablet By Mouth Daily 90tabs Osmel Alvarez M.D[facility] 000 Betamethasone Dipropionate 0.05% O intment [facility] Pantoprazole Sodium 40mg Tablets Gail Chacon Lorazepam 1mg Tablets Maria Esther Minor MD Ondansetron HCL 8mg Tablets Maria Esther Minor MD Prochlorperazine Maleate 10mg Tablets Maria Esther Minor MD Spiriva Respimat 2.5mcg/Act Aeroso l Inhale To Puffs By Mouth Every Day Unknown History Medications Potassium Chloride Jennifer ER 10Meq Tablets ER 1 by mouth every day 90tabs Osmel Alvarez M[facility] 08/15/2020 - 11/07/2020 Vital Signs Date Vital Result Comment 12/12/2020 9:28am Height 60 inches 5'0" Weight 181.00 lb BMI (Body Mass Index) 35.3 kg/m2 Body Temperature 97.5 F BP Systolic 98 mmHg BP Diastolic 64 mmHg Heart Rate 69 /min O2 % BldC Oximetry 99 % 11/07/2020 11:17am Height 60 inches 5'0" Weight 188.00 lb BMI (Body Mass Index) 36.7 kg/m2 Body Temperature 97.5 F BP Systolic 130 mmHg BP Diastolic 80 mmHg Heart Rate 74 /min O2 % BldC Oximetry 96 % Results Test Acquired Date Facility Test Result H/L Range Note Laboratory test finding 12/21/2020 [facility] [address] [place] [address] [phone] Magnesium Serum 2.1 mg/dL 1.7 - 2.2 Comprehensive Metabolic Panel 12/21/2020 [facility] [address] [place] [address] [phone] Comprehensive Metabo (SEE NOTE) 1 Sodium 135 mEq/L 134 - 153 Potassium 4.9 mEq/L 3.6 - 5.0 Chloride 98 mEq/L 98 - 107 Co2 29 mEq/L 22 - 30 Glucose 144 mg/dL High 70 - 99 BUN 15 mg/dL 7 - 21 Creatinine 0.8 mg/dL 0.7 - 1.5 BUN/Creat 19 8 - 27 Total Protein 5.6 g/dL Low 6.3 - 8.2 Albumin 3.2 g/dL Low 3.9 - 5.0 Globulin 2.4 GM/DL 2.4 - 3.2 A/G Ratio 1.3 0.8 - 2.0 Calcium 8.7 mg/dL 8.4 - 10.2 Total Bili <0.7 mg/dL 0.2 - 1.3 Alkaline Phos 102 U/L 38 - 126 Sgot/Ast 19 U/L 5 - 40 SGPT/Alt 17 U/L 7 - 56 Anion Gap 8.0 mmol/L 8.0 - 16.0 Age 55 yrs Non-Aa GFR >60 mL/min Afr Amer GFR >60 mL/min 2 CBC W/Automated Diff 12/21/[address] [id number] [phone] CBC W/Automated Diff (SEE NOTE) 3 WBC 4.2 10^3/uL 4.2 - 11.0 RBC 2.73 10^6/uL Low 4.20 - 5.40 Hemoglobin 9.4 g/dL Low 12.0 - 16.0 Hematocrit 27.6 % Low 37.0 - 47.0 MCV 101.1 fL High 81.0 - 101 MCH 34.4 pg High 27.0 - 34.0 MCHC 34.1 g/dL 31.0 - 36.0 RDW 14.3 % 11.5 - 14.5 Platelets 239 10^3/uL 150 - 450 MPV 8.8 fL 7.4 - 10.4 Neut 84.6 % High 37.0 - 80.0 Lymph 8.8 % Low 25.0 - 40.0 Harford 5.2 % 3.0 - 8.0 Eos 0.0 % 0.0 - 7.0 Baso 0.0 % 0.0 - 2.5 %Ig 1.4 % High 0.0 - 0.0 %NRBC 0.0 % 0.0 - 0.0 #Neut 3.57 10^3/uL 2.00 - 6.90 #Lymph 0.37 10^3/uL Low 0.60 - 3.40 #Harford 0.22 10^3/uL 0.00 - 0.90 #Eos 0.00 10^3/uL 0.00 - 0.70 #Baso 0.00 10^3/uL 0.00 - 0.20 #Ig 0.06 10^3/uL 0.00 - 0.10 #NRBC 0.00 10^3/uL 0.00 - 0.00 Manual Diff SEE BELOW Segs 90 % High 37 - 80 Band 0 % 0 - 5 %Lymph 8 % Low 25 - 40 %Harford 2 % Low 3 - 8 %Eos 0 % 0 - 7 %Baso 0 % 0 - 2 RBC Morph NOT INDICATED Laboratory test finding 12/21/2020 [place] [address] [phone] Iron 50 g/dL 42 - 135 Vitamin B12 Serum 857 pg/mL 232 - 1245 Urinalysis 12/20/2020 [place] [address] [phone] Urinalysis (SEE NOTE) 4, 5 Source R Color yellow Normal: Yellow Clarity clear Normal: Clear Spec Randolph 1.015 1.001 - 1.030 pH 8 5 - 9 Glucose NORM Normal: Negative Bilirubin NEG Normal: Negative Ketone 15 Abnormal Normal: Negative Protein 15 Normal: Negative Nitrite NEG Normal: Negative Blood NEG Normal: Negative Leuk Est NEG Normal: Negative Urobilinogen NOR less than 1.0 mg/dL Microscopic See Below WBC 1 - 3 Normal: None Seen RBC 0 - 1 Normal: None Seen Epithelial FEW Normal: None Seen Crystals See Below Triple Phos 3+ Abnormal Normal: None Seen Laboratory test finding 09/28/2020 [place] [address] [phone] Troponin T <0.01 NG/ML 0.00 - 0.10 6 CBC W/Automated Diff 09/28/2020 [place] [address] [phone] CBC W/Automated Diff (SEE NOTE) 7 WBC 4.8 10^3/uL 4.2 - 11.0 RBC 2.42 10^6/uL Low 4.20 - 5.40 Hemoglobin 9.0 g/dL Low 12.0 - 16.0 Hematocrit 28.0 % Low 37.0 - 47.0 MCV 115.7 fL High 81.0 - 101 MCH 37.2 pg High 27.0 - 34.0 MCHC 32.1 g/dL 31.0 - 36.0 RDW 17.3 % High 11.5 - 14.5 Platelets 294 10^3/uL 150 - 450 MPV 9.4 fL 7.4 - 10.4 Neut 50.0 % 37.0 - 80.0 Lymph 14.5 % Low 25.0 - 40.0 Harford 29.0 % High 3.0 - 8.0 Eos 4.0 % 0.0 - 7.0 Baso 1.7 % 0.0 - 2.5 %Ig 0.8 % High 0.0 - 0.0 %NRBC 0.0 % 0.0 - 0.0 #Neut 2.38 10^3/uL 2.00 - 6.90 #Lymph 0.69 10^3/uL 0.60 - 3.40 #Harford 1.38 10^3/uL High 0.00 - 0.90 #Eos 0.19 10^3/uL 0.00 - 0.70 #Baso 0.08 10^3/uL 0.00 - 0.20 #Ig 0.04 10^3/uL 0.00 - 0.10 #NRBC 0.00 10^3/uL 0.00 - 0.00 Manual Diff SEE BELOW Segs 45 % 37 - 80 Band 0 % 0 - 5 %Lymph 39 % 25 - 40 %Harford 10 % High 3 - 8 %Eos 5 % 0 - 7 %Baso 1 % 0 - 2 RBC Morph NOT INDICATED Comprehensive Metabolic Panel 09/28/2020 [facility] [address] [place] [address] [phone] Comprehensive Metabo (SEE NOTE) 8 Sodium 138 mEq/L 134 - 153 Potassium 4.7 mEq/L 3.6 - 5.0 Chloride 99 mEq/L 98 - 107 Co2 31 mEq/L High 22 - 30 Glucose 96 mg/dL 65 - 110 BUN 11 mg/dL 7 - 21 Creatinine 1.3 mg/dL 0.7 - 1.5 BUN/Creat 8 8 - 27 Total Protein 5.8 g/dL Low 6.3 - 8.2 Albumin 3.5 g/dL Low 3.9 - 5.0 Globulin 2.3 GM/DL Low 2.4 - 3.2 A/G Ratio 1.5 0.8 - 2.0 Calcium 9.1 mg/dL 8.4 - 10.2 Total Bili <0.7 mg/dL 0.2 - 1.3 Alkaline Phos 105 U/L 38 - 126 Sgot/Ast 24 U/L 5 - 40 SGPT/Alt 19 U/L 7 - 56 Anion Gap 8.0 mmol/L 8.0 - 16.0 Age 55 yrs Non-Aa GFR 45 mL/min Afr Amer GFR 55 mL/min 9 Laboratory test finding 09/28/2020 [facility] l [address] [place] [address] [phone] Magnesium Serum 1.5 mg/dL Low 1.7 - 2.2 Laboratory test finding 09/28/2020 [place] [address] [phone] Troponin T <0.01 NG/ML 0.00 - 0.10 10 CBC W/Automated Diff 08/15/2020 [place] [address] [phone] CBC W/Automated Diff (SEE NOTE) 11 WBC 9.7 10^3/uL 4.2 - 11.0 RBC 2.91 10^6/uL Low 4.20 - 5.40 Hemoglobin 10.8 g/dL Low 12.0 - 16.0 Hematocrit 32.5 % Low 37.0 - 47.0 MCV 111.7 fL High 81.0 - 101 MCH 37.1 pg High 27.0 - 34.0 MCHC 33.2 g/dL 31.0 - 36.0 RDW 15.1 % High 11.5 - 14.5 Platelets 335 10^3/uL 150 - 450 MPV 9.5 fL 7.4 - 10.4 Neut 60.8 % 37.0 - 80.0 Lymph 7.4 % Low 25.0 - 40.0 Harford 27.0 % High 3.0 - 8.0 Eos 2.7 % 0.0 - 7.0 Baso 1.0 % 0.0 - 2.5 %Ig 1.1 % High 0.0 - 0.0 %NRBC 0.0 % 0.0 - 0.0 #Neut 5.87 10^3/uL 2.00 - 6.90 #Lymph 0.72 10^3/uL 0.60 - 3.40 #Harford 2.61 10^3/uL High 0.00 - 0.90 #Eos 0.26 10^3/uL 0.00 - 0.70 #Baso 0.10 10^3/uL 0.00 - 0.20 #Ig 0.11 10^3/uL High 0.00 - 0.10 #NRBC 0.00 10^3/uL 0.00 - 0.00 Manual Diff SEE BELOW Segs 67 % 37 - 80 Band 0 % 0 - 5 %Lymph 12 % Low 25 - 40 %Harford 18 % High 3 - 8 %Eos 3 % 0 - 7 %Baso 0 % 0 - 2 RBC Morph NOT INDICATED Laboratory test finding [facility]15/[facility] [address] [place] [address] [phone] Magnesium Serum 1.1 mg/dL Low 1.7 - 2.2 Iron 28 g/dL Low 42 - 135 Comprehensive Metabolic Panel 08/15/2020 [facility] [address] [place], [place] [id number] [phone] Comprehensive Metabo (SEE NOTE) 12 Sodium 137 mEq/L 134 - 153 Potassium 3.5 mEq/L Low 3.6 - 5.0 Chloride 95 mEq/L Low 98 - 107 Co2 27 mEq/L 22 - 30 Glucose 105 mg/dL 65 - 110 BUN 9 mg/dL 7 - 21 Creatinine 1.3 mg/dL 0.7 - 1.5 BUN/Creat 7 Low 8 - 27 Total Protein 7.1 g/dL 6.3 - 8.2 Albumin 3.9 g/dL 3.9 - 5.0 Globulin 3.2 GM/DL 2.4 - 3.2 A/G Ratio 1.2 0.8 - 2.0 Alkaline Phos 113 U/L 38 - 126 Sgot/Ast 24 U/L 5 - 40 SGPT/Alt 12 U/L 7 - 56 Anion Gap 15.0 mmol/L 8.0 - 16.0 Age 55 yrs Non-Aa GFR 45 mL/min Afr Amer GFR 55 mL/min 13 Laboratory test finding 08/15/2020 [facility] [address] [place], [place] [id number] [phone] D-Dimer 1.41 ug/mL High 0.27 - 0.50 Pro-BNP 1005 pg/mL High 0 - 125 Hgba1c 5.2 % 4.4 - 6.1 14 1 COMPREHENSIVE METABOLIC PANE L 2 Male GFR Interprentation 20-49 yrs >60 mL/min Normal 50-59 yrs >56 mL/min Normal 60-69 yrs >49 mL/min Normal 70-79yrs >42 mL/min Normal 80 and above >35 mL/min Normal Female GFR Interpretation 20-39 yrs >60 mL/min Normal 40-49 yrs >58 mL/min Normal 50-59 yrs >51 mL/min Normal 60-69 yrs >45 mL/min Normal 70-79 yrs >39 mL/min Normal 80 and above >32 mL/min Normal 3 COMPLETE BLOOD COUNT 4 SOURCE: Clean Catch 5 URINALYSIS 6 TROPONIN T 0.1 ng/ml Recommended as the clinical th reshold value for Troponin T. 7 COMPLETE BLOOD COUNT 8 COMPREHENSIVE METABOLIC PANE L 9 Male GFR Interprentation 20-49 yrs >60 mL/min Normal 50-59 yrs >56 mL/min Normal 60-69 yrs >49 mL/min Normal 70-79yrs >42 mL/min Normal 80 and above >35 mL/min Normal Female GFR Interpretation 20-39 yrs >60 mL/min Normal 40-49 yrs >58 mL/min Normal 50-59 yrs >51 mL/min Normal 60-69 yrs >45 mL/min Normal 70-79 yrs >39 mL/min Normal 80 and above >32 mL/min Normal 10 TROPONIN T 0.1 ng/ml Recommended as the clinical th reshold value for Troponin T. 11 COMPLETE BLOOD COUNT 12 COMPREHENSIVE METABOLIC PANE L 13 Male GFR Interprentation 20-49 yrs >60 mL/min Normal 50-59 yrs >56 mL/min Normal 60-69 yrs >49 mL/min Normal 70-79yrs >42 mL/min Normal 80 and above >35 mL/min Normal Female GFR Interpretation 20-39 yrs >60 mL/min Normal 40-49 yrs >58 mL/min Normal 50-59 yrs >51 mL/min Normal 60-69 yrs >45 mL/min Normal 70-79 yrs >39 mL/min Normal 80 and above >32 mL/min Normal 14 {A1] {HB] Procedures Date Code Description Status 12/12/2020 25998 Echocardiogram, Complete Complet ed 11/07/2020 16077 EKG Completed 10/09/2020 85725 24 Hour Holter Monitoring Comple domenico 10/03/2020 61156 Echocardiogram, Complete Complet ed 08/18/2020 90569 Echocardiogram, Complete Complet ed 08/18/2020 41079 24 Hour Holter Monitoring Comple domenico Encounters Type Date Location Provider Dx Diagnosis Office Visit 11/07/2020 [facility] R06.00 Dyspnea, unspecified I48.0 Paroxysmal atrial fibrillati on J43.9 Emphysema, unspecified I11.9 Hypertensive heart disease w [facility] heart failure I49.49 Other premature depolarizati on Office Visit 10/03/2020 9:15a [facility] Osmel [facility] I11.9 Hypertensive heart disease without heart failure I48.0 Paroxysmal atrial fibrillati on G45.9 Transient cerebral ischemic attack, unspecified I42.9 Cardiomyopathy, unspecified Office Visit 08/29/2020 11:30a [facility] O[facility]el [facility] I50.20 Unspecified systolic (congestive) heart failure J43.9 Emphysema, unspecified I11.9 Hypertensive heart disease w [facility] heart failure Office Visit 08/22/2020 11:15a [facility] O[facility]el [facility] I50.20 Unspecified systolic (congestive) heart failure Office Visit 08/15/2020 9:15a [facility] Osmel [facility] I50.20 Unspecified systolic (congestive) heart failure I26.99 Other pulmonary embolism wit hout acute cor pulmonale Assessments Date Code Description Provider 12/12/2020 I42.9 Cardiomyopathy, unspecified Brisa [facility]varez [facility] 12/12/2020 I34.0 Nonrheumatic mitral (valve) insu fficiency O[facility]el [facility] 11/07/2020 R06.00 Dyspnea, unspecified Osmel ni M.D[facility] 11/07/2020 I48.0 Paroxysmal atrial fibrillation Sarah Alvarez M[facility] 11/07/2020 J43.9 Emphysema, unspecified Osmel white M.D[facility] 11/07/2020 I11.9 Hypertensive heart disease witho ut heart failure O[facility]el [facility] 11/07/2020 I49.49 Other premature depolarization Sarah [facility]varez [facility] 10/09/2020 R00.2 Palpitations Evelyn Blake, P.C. 10/03/2020 I11.9 Hypertensive heart disease witho ut heart failure O[facility]el [facility] 10/03/2020 I48.0 Paroxysmal atrial fibrillation Sarah [facility]varez [facility] 10/03/2020 G45.9 Transient cerebral ischemic kierra ck, unspecified Osmel Alvarez [facility] 10/03/2020 I42.9 Cardiomyopathy, unspecified Brisa [facility]varez [facility] 09/28/2020 G45.9 Transient cerebral ischemic kierra ck, unspecallison Alvarez M.D[facility]. 09/27/2020 G45.9 Transient cerebral ischemic kierra ck, connie Alvarez M.D[facility] 08/29/2020 I50.20 Unspecified systolic (congestive ) heart failure Osmel [facility] 08/29/2020 J43.9 Emphysema, unspecified Osmel white M[facility] 08/29/2020 I11.9 Hypertensive heart disease witho nm heart failure Osmel [facility]varez [facility] 08/22/2020 I50.20 Unspecified systolic (congestive ) heart failure Osmel [facility] 08/18/2020 R00.2 Palpitations Evelyn Blake, P.C. 08/18/2020 I42.9 Cardiomyopathy, unspecified Brisa [facility]varez [facility] 08/15/2020 I50.20 Unspecified systolic (congestive ) heart failure Osmel [facility]varez [facility] 08/15/2020 I26.99 Other pulmonary embolism without acute cor pulmonale Osmel [facility] 08/07/2020 I48.0 Paroxysmal atrial fibrillation Sarah [facility]varez [facility] 08/07/2020 J44.9 Chronic obstructive pulmonary di sease, connie Alvarez M[facility] 08/07/2020 F41.9 Anxiety disorder, unspecified Chantel [facility]varez [facility] 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 08/06/2020 I48.0 Paroxysmal atrial fibrillation Sarah [facility]varez M[facility] 08/06/2020 J44.9 Chronic obstructive pulmonary di sease, unspecified Osmel [facility] 08/06/2020 F41.9 Anxiety disorder, unspecified Chantel Alvarez [facility] 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 08/05/2020 I48.0 Paroxysmal atrial fibrillation Sarah Alvarez M[facility] 08/05/2020 J44.9 Chronic obstructive pulmonary di sease, unspecified Osmel [facility] 08/05/2020 F41.9 Anxiety disorder, unspecified Chantel [facility]varez [facility] 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 Plan of Treatment Future Appointment(s):* 01/11/2021 2:15 pm - [facility] at [facility]
--- OUTSIDE RECORDS SUMMARY | 2020-12-23 14:03 | CCD | Continuity of Care Document ---
Author Author Chantale BLAKE P. C. Organization Unknown Address [address] [place] [id number] Phone [phone] Care Team Providers Care [employer]ed [employer]els Developer Name Role Phone OSMEL ALVAREZ M.D. P.C. AUTM [phone] Social History Type Date Description Comments Sex [...] M.D., P. C. 08/15/2020 Bystolic 5mg Tablets [facility] Diltiazem HCL ER Coated Beads 180mg Caps ER 24HR Take One Tablet By Mouth Daily 90caps Osmel ford M[facility] Xarelto 10mg Tablets Take One Tablet By Mouth Daily 90tabs Osmel [facility] 000 Betamethasone Dipropionate 0.05% O intment [facility] Pantoprazole Sodium 40mg Tablets Gail Chacon Lorazepam [...] H/L Range Note Laboratory test finding 12/21/2020 [facility] [address] [place] [address] [phone] Magnesium Serum 2.1 mg/dL 1.7 - 2.2 Comprehensive Metabolic Panel 12/21/2020 [facility] [address] [place] [address] [phone] Comprehensive Metabo (SEE NOTE) 1 Sodium 135 [...] >60 mL/min 2 CBC W/Automated Diff 12/21/[address] [id number] [phone] CBC W/Automated Diff (SEE NOTE) 3 WBC [...] Lymph 8.8 % Low 25.0 - 40.0 Gaines 5.2 % 3.0 - 8.0 Eos 0.0 % 0.0 - 7.0 Baso 0.0 % 0.0 - 2.5 %Ig 1.4 % High 0.0 - 0.0 %NRBC 0.0 % 0.0 - 0.0 #Neut 3.57 10^3/uL 2.00 - 6.90 #Lymph 0.37 10^3/uL Low 0.60 - 3.40 #Gaines 0.22 10^3/uL 0.00 - 0.90 #Eos 0.00 10^3/uL 0.00 - 0.70 #Baso 0.00 10^3/uL 0.00 - 0.20 #Ig 0.06 10^3/uL 0.00 - 0.10 #NRBC 0.00 10^3/uL 0.00 - 0.00 Manual Diff SEE BELOW Segs 90 % High 37 - 80 Band 0 % 0 - 5 %Lymph 8 % Low 25 - 40 %Gaines 2 % Low 3 - 8 %Eos 0 % 0 - 7 %Baso 0 % 0 - 2 RBC Morph NOT INDICATED Urinalysis 12/20/[address] [address] [phone] Urinalysis (SEE NOTE) 4, 5 Source R Color yellow Normal: Yellow Clarity clear Normal: Clear Spec [place] 1.015 1.001 - 1.030 pH 8 5 [...] Normal: None Seen Laboratory test finding 09/28/[address] [address] [phone] Troponin T <0.01 NG/ML 0.00 - 0.10 6 CBC W/Automated Diff 09/28/[address] [address] [phone] CBC W/Automated Diff (SEE NOTE) 7 WBC [...] Lymph 14.5 % Low 25.0 - 40.0 Gaines 29.0 % High 3.0 - 8.0 Eos 4.0 % 0.0 - 7.0 Baso 1.7 % 0.0 - 2.5 %Ig 0.8 % High 0.0 - 0.0 %NRBC 0.0 % 0.0 - 0.0 #Neut 2.38 10^3/uL 2.00 - 6.90 #Lymph 0.69 10^3/uL 0.60 - 3.40 #Gaines 1.38 10^3/uL High 0.00 - 0.90 #Eos 0.19 10^3/uL 0.00 - 0.70 #Baso 0.08 10^3/uL 0.00 - 0.20 #Ig 0.04 10^3/uL 0.00 - 0.10 #NRBC 0.00 10^3/uL 0.00 - 0.00 Manual Diff SEE BELOW Segs 45 % 37 - 80 Band 0 % 0 - 5 %Lymph 39 % 25 - 40 %Gaines 10 % High 3 - 8 %Eos 5 % 0 - 7 %Baso 1 % 0 - 2 RBC Morph NOT INDICATED Comprehensive Metabolic Panel 09/28/2020 [facility] [address] [place] [address] [phone] Comprehensive Metabo (SEE NOTE) 8 Sodium 138 [...] 55 mL/min 9 Laboratory test finding 09/28/2020 [facility] [address] [place] [address] [phone] Magnesium Serum 1.5 mg/dL Low 1.7 - 2.2 Laboratory test finding 09/28/2020 [facility] [address] [place] [address] [phone] Troponin T <0.01 NG/ML 0.00 - 0.10 10 CBC W/Automated Diff 08/15/[address] [address] [phone] CBC W/Automated Diff (SEE NOTE) 11 WBC [...] Lymph 7.4 % Low 25.0 - 40.0 Gaines 27.0 % High 3.0 - 8.0 Eos 2.7 % 0.0 - 7.0 Baso 1.0 % 0.0 - 2.5 %Ig 1.1 % High 0.0 - 0.0 %NRBC 0.0 % 0.0 - 0.0 #Neut 5.87 10^3/uL 2.00 - 6.90 #Lymph 0.72 10^3/uL 0.60 - 3.40 #Gaines 2.61 10^3/uL High 0.00 - 0.90 #Eos 0.26 10^3/uL 0.00 - 0.70 #Baso 0.10 10^3/uL 0.00 - 0.20 #Ig 0.11 10^3/uL High 0.00 - 0.10 #NRBC 0.00 10^3/uL 0.00 - 0.00 Manual Diff SEE BELOW Segs 67 % 37 - 80 Band 0 % 0 - 5 %Lymph 12 % Low 25 - 40 %Gaines 18 % High 3 - 8 %Eos 3 % 0 - 7 %Baso 0 % 0 - 2 RBC Morph NOT INDICATED Laboratory test finding 08/15/2020 [facility] [address] [place] [address] [phone] Magnesium Serum 1.1 mg/dL Low 1.7 - 2.2 Iron 28 g/dL Low 42 - 135 Comprehensive Metabolic Panel 08/15/2020 [facility] [address] [place] [address] [phone] Comprehensive Metabo (SEE NOTE) 12 Sodium 137 [...] 55 mL/min 13 Laboratory test finding [facility]/15[facility] [address] [place] [address] [phone] D-Dimer 1.41 ug/mL High 0.27 - 0.50 [...] {HB] Procedures Date Code Description Status 12/12/2020 03610 Echocardiogram, Complete Complet ed 11/07/2020 81350 EKG Completed 10/09/2020 04118 24 Hour Holter Monitoring Comple domenico 10/03/2020 62705 Echocardiogram, Complete Complet ed 08/18/2020 52226 Echocardiogram, Complete Complet ed 08/18/2020 92770 24 Hour Holter Monitoring Comple [facility] Encounters Type Date Location Provider Dx Diagnosis Office Visit 11/07/2020 10:45a [facility] Jurgen [facility] R06.00 Dyspnea, unspecified I48.0 Paroxysmal atrial fibrillati on J43.9 Emphysema, unspecified I11.9 Hypertensive heart disease w ithout heart failure I49.49 Other premature depolarizati on Office Visit 10/03/2020 9:15a [facility] Osmel Alvarez M[facility] I11.9 Hypertensive heart disease without heart failure I48.0 Paroxysmal atrial fibrillati on G45.9 Transient cerebral ischemic attack, unspecified I42.9 Cardiomyopathy, unspecified Office Visit 08/29/2020 11:30a [facility] Osmel Alvarez [facility] I50.20 Unspecified systolic (congestive) heart failure J43.9 Emphysema, unspecified I11.9 Hypertensive heart disease w [facility] heart failure Office Visit 08/22/2020 11:15a [facility] Osmel Alvarez [facility] I50.20 Unspecified systolic (congestive) heart failure Office Visit 08/15/2020 9:15a [facility] Osmel [facility] I50.20 Unspecified systolic (congestive) heart failure I26.99 Other pulmonary embolism wit hout acute cor pulmonale Assessments Date Code Description Provider 12/12/2020 I42.9 Cardiomyopathy, unspecified Brisa [facility] 12/12/2020 I34.0 Nonrheumatic mitral (valve) insu fficiency [facility]el [facility] 11/07/2020 R06.00 Dyspnea, marcelaified Osmel ni M.D[facility] 11/07/2020 I48.0 Paroxysmal atrial fibrillation Sarah [facility] 11/07/2020 J43.9 Emphysema, unspecified Osmel white [facility] 11/07/2020 I11.9 Hypertensive heart disease witho ga heart failure Osmel [facility] 11/07/2020 [...] 09/27/2020 G45.9 Transient cerebral ischemic kierra ck, unspecified O[facility]el [facility] 08/29/2020 I50.20 Unspecified systolic (congestive ) heart failure Osmel [facility] 08/29/2020 J43.9 Emphysema, unspecified Osmel white M.D[facility] 08/29/2020 I11.9 Hypertensive heart disease witho ut heart failure Osmel Alvarez [facility] 08/22/2020 [...] M.D., [facility] 08/07/2020 F41.9 Anxiety disorder, unspecified Mi riri Alvarez M[facility] 08/07/2020 D38.1 Neoplasm of [...] pm - [facility] at [facility]
--- OUTSIDE RECORDS SUMMARY | 2020-12-23 14:03 | CCD | Continuity of Care Document ---
Author Author Chantale BLAKE P. C. Organization Unknown Address [address] [place] [address] Phone [phone] Care Team Providers Care Java Core Developer Name Role Phone OSMEL ALVAREZ M.D. P.C. AUTM [phone] Social History Type Date Description Comments Sex [...] M.D., P. C. 08/15/2020 Bystolic 5mg Tablets [facility] Diltiazem HCL ER Coated Beads 180mg Caps ER 24HR Take One Tablet By Mouth Daily 90caps Osmel ford M.D., P.C. Xarelto 10mg Tablets Take One Tablet By Mouth Daily 90tabs Osmel Alvarez M.D., P.[facility]. 000 Betamethasone Dipropionate 0.05% O intment [facility] Pantoprazole Sodium 40mg Tablets Gail Chacon [...] Date Facility Test Result H/L Range Note CBC W/Automated Diff 12/22/[address] [address] [phone] CBC W/Automated Diff (SEE NOTE) 1 WBC 3.9 10^3/uL Low 4.2 - 11.0 RBC 2.64 10^6/uL Low 4.20 - 5.40 Hemoglobin 9.0 g/dL Low 12.0 - 16.0 Hematocrit 26.6 % Low 37.0 - 47.0 MCV 100.8 fL 81.0 - 101 MCH 34.1 pg High 27.0 - 34.0 MCHC 33.8 g/dL 31.0 - 36.0 RDW 14.1 % 11.5 - 14.5 Platelets 221 10^3/uL 150 - 450 MPV 8.9 fL 7.4 - 10.4 Neut 71.5 % 37.0 - 80.0 Lymph 10.3 % Low 25.0 - 40.0 [place] 11.8 % High 3.0 - 8.0 Eos 0.0 % 0.0 - 7.0 Baso 0.0 % 0.0 - 2.5 %Ig 6.4 % High 0.0 - 0.0 %NRBC 0.0 % 0.0 - 0.0 #Neut 2.78 10^3/uL 2.00 - 6.90 #Lymph 0.40 10^3/uL Low 0.60 - 3.40 #[place] 0.46 10^3/uL 0.00 - 0.90 #Eos 0.00 10^3/uL 0.00 - 0.70 #Baso 0.00 10^3/uL 0.00 - 0.20 #Ig 0.25 10^3/uL High 0.00 - 0.10 #NRBC 0.00 10^3/uL 0.00 - 0.00 Manual Diff SEE BELOW Segs 86 % High 37 - 80 %Lymph 8 % Low 25 - 40 %[place] 6 % 3 - 8 NRBC 1 % RBC Morph NOT INDICATED Comprehensive Metabolic Panel 12/22/2020 [facility] [address] [place] [address] [phone] Comprehensive Metabo (SEE NOTE) 2 Sodium 133 mEq/L Low 134 - 153 Potassium 5.0 mEq/L 3.6 - 5.0 Chloride 98 mEq/L 98 - 107 Co2 30 mEq/L 22 - 30 Glucose 147 mg/dL High 70 - 99 BUN 19 mg/dL 7 - 21 Creatinine 0.8 mg/dL 0.7 - 1.5 BUN/Creat 24 8 - 27 Total Protein 6.1 g/dL Low 6.3 - 8.2 Albumin 3.2 g/dL Low 3.9 - 5.0 Globulin 2.9 GM/DL 2.4 - 3.2 A/G Ratio 1.1 0.8 - 2.0 Calcium 8.5 mg/dL 8.4 - 10.2 Total Bili <0.7 mg/dL 0.2 - 1.3 Alkaline Phos 106 U/L 38 - 126 Sgot/Ast 44 U/L High 5 - 40 SGPT/Alt 40 U/L 7 - 56 Anion Gap 5.0 mmol/L Low 8.0 - 16.0 Age 55 yrs Non-Aa GFR >60 mL/min Afr Amer GFR >60 mL/min 3 Laboratory test finding 12/22/2020 [facility] [address] [place] [address] [phone] Magnesium Serum 1.8 mg/dL 1.7 - 2.2 Laboratory test finding 12/21/2020 [facility] [address] [place] [phone] Magnesium Serum 2.1 mg/dL 1.7 - 2.2 Comprehensive Metabolic Panel 12/21/2020 [facility] [address] [place] [address] [phone] Comprehensive Metabo (SEE NOTE) 4 Sodium 135 mEq/L 134 - 153 Potassium [...] >60 mL/min Afr Amer GFR >60 mL/min 5 CBC W/Automated Diff 12/21/[address] [address] [phone] CBC W/Automated Diff (SEE NOTE) 6 WBC 4.2 10^3/uL 4.2 - 11.0 RBC [...] Lymph 8.8 % Low 25.0 - 40.0 [place] 5.2 % 3.0 - 8.0 Eos 0.0 % 0.0 - 7.0 Baso 0.0 % 0.0 - 2.5 %Ig 1.4 % High 0.0 - 0.0 %NRBC 0.0 % 0.0 - 0.0 #Neut 3.57 10^3/uL 2.00 - 6.90 #Lymph 0.37 10^3/uL Low 0.60 - 3.40 #[place] 0.22 10^3/uL 0.00 - 0.90 #Eos 0.00 10^3/uL 0.00 - 0.70 #Baso 0.00 10^3/uL 0.00 - 0.20 #Ig 0.06 10^3/uL 0.00 - 0.10 #NRBC 0.00 10^3/uL 0.00 - 0.00 Manual Diff SEE BELOW Segs 90 % High 37 - 80 Band 0 % 0 - 5 %Lymph 8 % Low 25 - 40 %[place] 2 % Low 3 - 8 %Eos 0 % 0 - 7 %Baso 0 % 0 - 2 RBC Morph NOT INDICATED Laboratory test finding 12/21/[address] [phone] Iron 50 g/dL 42 - 135 Vitamin B12 Serum 857 pg/mL 232 - 1245 Urinalysis 12/20/[address] [address] [phone] Urinalysis (SEE NOTE) 7, 8 Source R Color yellow Normal: Yellow Clarity clear Normal: Clear Spec [place] 1.015 1.001 - 1.030 pH 8 5 [...] Normal: None Seen Laboratory test finding 09/28/2020 [facility] [address] [place] [address] [phone] Troponin T <0.01 NG/ML 0.00 - 0.10 9 Laboratory test finding 09/28/2020 [facility] [address] [place] [address] [phone] Magnesium Serum 1.5 mg/dL Low 1.7 - 2.2 Comprehensive Metabolic Panel 09/28/2020 [facility] [address] [place] [address] [phone] Comprehensive Metabo (SEE NOTE) 10 Sodium 138 mEq/L 134 - 153 Potassium [...] 45 mL/min Afr Amer GFR 55 mL/min 11 CBC W/Automated Diff 09/28/2020 [place] [address] [phone] CBC W/Automated Diff (SEE NOTE) 12 WBC 4.8 10^3/uL 4.2 - 11.0 RBC [...] Lymph 14.5 % Low 25.0 - 40.0 [place] 29.0 % High 3.0 - 8.0 Eos 4.0 % 0.0 - 7.0 Baso 1.7 % 0.0 - 2.5 %Ig 0.8 % High 0.0 - 0.0 %NRBC 0.0 % 0.0 - 0.0 #Neut 2.38 10^3/uL 2.00 - 6.90 #Lymph 0.69 10^3/uL 0.60 - 3.40 #[place] 1.38 10^3/uL High 0.00 - 0.90 #Eos 0.19 10^3/uL 0.00 - 0.70 #Baso 0.08 10^3/uL 0.00 - 0.20 #Ig 0.04 10^3/uL 0.00 - 0.10 #NRBC 0.00 10^3/uL 0.00 - 0.00 Manual Diff SEE BELOW Segs 45 % 37 - 80 Band 0 % 0 - 5 %Lymph 39 % 25 - 40 %[place] 10 % High 3 - 8 %Eos 5 % 0 - 7 %Baso 1 % 0 - 2 RBC Morph NOT INDICATED Laboratory test finding 09/28/[address] [address] [phone] Troponin T <0.01 NG/ML 0.00 - 0.10 13 CBC W/Automated Diff 08/15/[address] [address] [phone] CBC W/Automated Diff (SEE NOTE) 14 WBC 9.7 10^3/uL 4.2 - 11.0 RBC [...] Lymph 7.4 % Low 25.0 - 40.0 [place] 27.0 % High 3.0 - 8.0 Eos 2.7 % 0.0 - 7.0 Baso 1.0 % 0.0 - 2.5 %Ig 1.1 % High 0.0 - 0.0 %NRBC 0.0 % 0.0 - 0.0 #Neut 5.87 10^3/uL 2.00 - 6.90 #Lymph 0.72 10^3/uL 0.60 - 3.40 #[place] 2.61 10^3/uL High 0.00 - 0.90 #Eos 0.26 10^3/uL 0.00 - 0.70 #Baso 0.10 10^3/uL 0.00 - 0.20 #Ig 0.11 10^3/uL High 0.00 - 0.10 #NRBC 0.00 10^3/uL 0.00 - 0.00 Manual Diff SEE BELOW Segs 67 % 37 - 80 Band 0 % 0 - 5 %Lymph 12 % Low 25 - 40 %[place] 18 % High 3 - 8 %Eos 3 % 0 - 7 %Baso 0 % 0 - 2 RBC Morph NOT INDICATED Laboratory test finding 08/15/2020 [facility] [address] [place], [place] [id number] [phone] Magnesium Serum 1.1 mg/dL Low 1.7 - 2.2 Iron 28 g/dL Low 42 - 135 Comprehensive Metabolic Panel 08/15/2020 [facility] [address] [place], [place] [id number] [phone] Comprehensive Metabo (SEE NOTE) 15 Sodium 137 mEq/L 134 - 153 Potassium [...] 45 mL/min Afr Amer GFR 55 mL/min 16 Laboratory test finding 08/15/2020 [facility] [address] [place], [place] [id number] [phone] D-Dimer 1.41 ug/mL High 0.27 - 0.50 Pro-BNP 1005 pg/mL High 0 - 125 Hgba1c 5.2 % 4.4 - 6.1 17 1 COMPLETE BLOOD COUNT 2 COMPREHENSIVE METABOLIC PANE L 3 Male GFR Interprentation 20-49 yrs >60 mL/min Normal 50-59 yrs >56 mL/min Normal 60-69 yrs >49 mL/min Normal 70-79yrs >42 mL/min Normal 80 and above >35 mL/min Normal Female GFR Interpretation 20-39 yrs >60 mL/min Normal 40-49 yrs >58 mL/min Normal 50-59 yrs >51 mL/min Normal 60-69 yrs >45 mL/min Normal 70-79 yrs >39 mL/min Normal 80 and above >32 mL/min Normal 4 COMPREHENSIVE METABOLIC PANE L 5 Male GFR Interprentation 20-49 yrs >60 mL/min Normal 50-59 yrs >56 mL/min Normal 60-69 yrs >49 mL/min Normal 70-79yrs >42 mL/min Normal 80 and above >35 mL/min Normal Female GFR Interpretation 20-39 yrs >60 mL/min Normal 40-49 yrs >58 mL/min Normal 50-59 yrs >51 mL/min Normal 60-69 yrs >45 mL/min Normal 70-79 yrs >39 mL/min Normal 80 and above >32 mL/min Normal 6 COMPLETE BLOOD COUNT 7 SOURCE: Clean Catch 8 URINALYSIS 9 TROPONIN T 0.1 ng/ml Recommended as the clinical th reshold value for Troponin T. 10 COMPREHENSIVE METABOLIC PANE L 11 Male GFR Interprentation 20-49 yrs >60 mL/min Normal 50-59 yrs >56 mL/min Normal 60-69 yrs >49 mL/min Normal 70-79yrs >42 mL/min Normal 80 and above >35 mL/min Normal Female GFR Interpretation 20-39 yrs >60 mL/min Normal 40-49 yrs >58 mL/min Normal 50-59 yrs >51 mL/min Normal 60-69 yrs >45 mL/min Normal 70-79 yrs >39 mL/min Normal 80 and above >32 mL/min Normal 12 COMPLETE BLOOD COUNT 13 TROPONIN T 0.1 ng/ml Recommended as the clinical th reshold value for Troponin T. 14 COMPLETE BLOOD COUNT 15 COMPREHENSIVE METABOLIC PANE L 16 Male GFR Interprentation 20-49 yrs >60 mL/min Normal 50-59 yrs >56 mL/min Normal 60-69 yrs >49 mL/min Normal 70-79yrs >42 mL/min Normal 80 and above >35 mL/min Normal Female GFR Interpretation 20-39 yrs >60 mL/min Normal 40-49 yrs >58 mL/min Normal 50-59 yrs >51 mL/min Normal 60-69 yrs >45 mL/min Normal 70-79 yrs >39 mL/min Normal 80 and above >32 mL/min Normal 17 {A1] {HB] Procedures Date Code Description Status 12/12/2020 49920 Echocardiogram, Complete Complet ed 11/07/2020 71221 EKG Completed 10/09/2020 55674 24 Hour Holter Monitoring Comple domenico 10/03/2020 05560 Echocardiogram, Complete Complet ed 08/18/2020 13572 Echocardiogram, Complete Complet ed 08/18/2020 90949 24 Hour Holter Monitoring Comple domenico Encounters Type Date Location Provider Dx Diagnosis Office Visit 11/07/2020 10:45a [facility] Osmel Alvarze M.D[facility] .[facility] R06.00 Dyspnea, unspecified I48.0 Paroxysmal atrial fibrillati on J43.9 Emphysema, unspecified I11.9 Hypertensive heart disease w ithout heart failure I49.49 Other premature depolarizati on Office Visit 10/03/2020 9:15a [facility] Osmel Alvarez M.D., P .[facility]. I11.9 Hypertensive heart disease without heart failure I48.0 Paroxysmal atrial fibrillati on G45.9 Transient cerebral ischemic attack, unspecified I42.9 Cardiomyopathy, unspecified Office Visit 08/29/2020 11:30a [facility] Osmel Alvarez M.D., P .[facility]. I50.20 Unspecified systolic (congestive) heart failure J43.9 Emphysema, unspecified I11.9 Hypertensive heart disease w [facility] heart failure Office Visit 08/22/2020 11:15a [facility] Osmel Alvarez M.D., P .[facility]. I50.20 Unspecified systolic (congestive) heart failure Office Visit 08/15/2020 9:15a [facility] Osmel Alvarez M.D., P .C. I50.20 Unspecified [...] P.C. 11/07/2020 I11.9 Hypertensive heart disease witho ky heart failure Osmel Alvarez M.D., [facility]. 11/07/2020 I49.49 Other premature depolarization Sarah Alvarez M.D., P.C. 10/09/2020 R00.2 Palpitations Evelyn Blake, P.C. 10/03/2020 I11.9 Hypertensive heart disease witho ut heart failure Osmel Alvarez M.D., P.[facility]. 10/03/2020 I48.0 Paroxysmal atrial fibrillation Sarah Alvarez M.D., P.C. 10/03/2020 G45.9 Transient cerebral ischemic kierra ck, connie Alvarez M.D., P.C. 10/03/2020 I42.9 Cardiomyopathy, unspecified Brisa Alvarez M.D., P.C. 09/28/2020 G45.9 Transient cerebral ischemic kierra ck, unspecified Osmel Alvarez M.D., [facility]. 09/27/2020 G45.9 Transient cerebral [...] 08/07/2020 J44.9 Chronic obstructive pulmonary di sease, unspecified Osmel Alvarez M.D., [facility]. 08/07/2020 F41.9 Anxiety disorder, [...] P.C. 08/05/2020 J44.9 Chronic obstructive pulmonary di kerimirella, unspecified Osmel Alvarez M.D., [facility]. 08/05/2020 F41.9 Anxiety disorder, unspecified Chantel Alvarez M.D., P.C. 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 Plan of Treatment Future Appointment(s):* 01/11/2021 2:15 pm - Osmel Alvarez [facility] at [facility]
--- OUTSIDE RECORDS SUMMARY | 2020-12-23 14:04 | CCD | Continuity of Care Document ---
Author Author Chantale MERINO ID Organization Unknown Address [address] [place] [address] [place] [address] Phone [phone] Care Team Providers Care Rasper Machine Operator Name Role Phone [facility] AUTM [phone] [place] [employer] AUTM [phone] Problems Description No Information Available Social History Type Date Description Comments Sex Unknown ETOH Use Occasionally consumes wine Tobacco Use Start: Unknown End: Unknown Patient is a former smoker Tobacco Use Start: Unknown The patient has never vaped Smoking Status Reviewed: 11/10/20 The patient has never vaped Allergies, Adverse Reactions, Alerts Active Allergies Reaction Severity Comments Date Seafood Severe Anaphylaxis 11/10/2020 Penicillin V As 11/10/2020 Medications Active Medications SIG Qnty Indications Ordering Provide r Date Doxycycline Hyclate 100mg Capsules 1 twice a day x 7 days, take with food 14caps H66.91 Yassine jorge JR., M.D. 11/10/2020 Folic Acid 1mg Tablets Unknown Xarelto 20mg Tablets 1 by mouth every day Unknown Pantoprazole Sodium 40mg Tablets DR qd Unknown Bystolic 5mg Tablets qd Unknown Magnesium 400mg Tablets take one tab per day Unknown Furosemide 20mg Tablets qd Unknown Potassium Chloride Jennifer ER 10Meq Tablets ER take one tab per day for 3 days Unknown Diltiazem HCL 120mg Tablets Unknown Aspirin Ec 81mg Tablets DR take one per day Unknown Breo Ellipta 100-25mcg/Inh Aerosol 1 puff inhaled daily Unknown Spiriva Respimat 1.25mcg/Act Aeros ol inhale 2 puffs by mouth once daily Unknown Oxygen 2L Via NC Unknown 00 Immunizations Description No Information Available Vital Signs Date Vital Result Comment 11/10/2020 3:17pm BP Systolic 133 mmHg BP Diastolic 83 mmHg Heart Rate 70 /min Respiratory Rate 18 /min O2 % BldC Oximetry 100 % Body Temperature 95.5 F Weight 185.00 lb Height 60 inches 5'0" BMI (Body Mass Index) 36.1 kg/m2 Pain Level 5 Results Description No Information Available Procedures Description No Information Available Medical Devices Description No Information Available Encounters Type Date Location Provider Dx Diagnosis Office Visit 11/10/2020 4:00p Main Office JOHN Small H66.9 1 Otitis media, unspecified, right ear Z20.828 Contact w and exposure to ot h viral communicable diseases Assessments Date Code Description Provider 11/10/2020 H66.91 Otitis media, unspecified, right ear JHON Small 11/10/2020 Z20.828 Contact with and (mann spected) exposure to other viral communicable diseases JOHN Small Plan of Treatment 11/10/2020 - JOHN Small* H66.91 Otitis media, unspecified, right ear* New Medication:* Doxycycline Hyclate 100 mg - 1 twice a day x 7 days, take with food * Z20.828 Contact with and (suspected) exposure to other viral communicable diseases* Comments:* POC rapid COVID neg today, neg flu a and b Functional Status Description No Information Available Mental Status Description No Information Available Referrals Description No Information Available
--- OUTSIDE RECORDS SUMMARY | 2020-12-23 14:04 | CCD | Continuity of Care Document ---
Author Author Chantale BLAKE P. C. Organization Unknown Address [address] [place] [id number] Phone [phone] Care Team Providers Care Paper Cap Machine Operator Name Role Phone OSMEL ALVAREZ M.D. P.C. AUTM [phone] Social History Type Date Description Comments Sex Unknown Allergies, Adverse Reactions, Alerts Active Allergies Reaction Severity Comments Date Penicillin V 08/10/2020 Seafood 08/10/2020 Medications Active Medications SIG Qnty Indications Ordering Provide r Date Breo Ellipta 200-25mcg/Inh Aerosol O[facility]el Alvarez [facility] 11/07/2020 Furosemide 20mg Tablets Take One Tablet By Mouth Daily 5 days a week Osmel Alvarez M.D., [facility]. [facility]. 08/15/2020 Spiriva Respimat 2.5mcg/Act Aeroso l Inhale To Puffs By Mouth Every Day Unknown Prochlorperazine Maleate 10mg Tablets Maria Esther Minor MD Ondansetron HCL 8mg Tablets Maria Esther Minor MD Silver Sulfadiazine 1% Gail Webb Lidocaine Viscous HCL 2% Solution Unknown Lorazepam 1mg Tablets Maria Esther Minor MD Nystatin [id number] Ointment Maria Esther Minor MD Fluconazole 150mg Tablets Unknown Mupirocin 2% Ointment Unknown Pantoprazole Sodium 40mg Tablets Gail Chacon Potassium Chloride ER 10Meq Capsul es ER Take One Tablet By Mouth Twice Daily 180caps Osmel ni M.D., [facility]. Betamethasone Dipropionate 0.05% O intment Ltac, Located Within [facility] Triamcinolone Acetonide Dental Paste 0.1% Paste Marlin Carter M.D. Meloxicam 7.5mg Tablets Unknown Xarelto 10mg Tablets Take One Tablet By Mouth Daily 90tabs Osmel [facility]varez [facility] 000 Diltiazem HCL ER Coated Beads 180mg Caps ER 24HR Take One Tablet By Mouth Daily 90caps Osmel ford M.D., [facility] Bystolic 5mg Tablets Ltac, Located Within [facility] History Medications Potassium Chloride Jennifer ER 10Meq Tablets ER 1 by mouth every day 90tabs Osmel Alvarez [facility] 08/15/2020 - 11/07/2020 Vital Signs Date Vital Result Comment 11/07/2020 11:17am Height 60 inches 5'0" Weight 188.00 lb BMI (Body Mass Index) 36.7 kg/m2 Body Temperature 97.5 F BP Systolic 130 mmHg BP Diastolic 80 mmHg Heart Rate 74 /min O2 % BldC Oximetry 96 % 10/03/2020 9:21am Height 60 inches 5'0" Weight 185.00 lb BMI (Body Mass Index) 36.1 kg/m2 Body Temperature 97.7 F BP Systolic 139 mmHg BP Diastolic 85 mmHg Heart Rate 73 /min O2 % BldC Oximetry 99 % 2l Results Test Acquired Date Facility Test Result H/L Range Note Laboratory test finding 09/28/[address] [address] [phone] Troponin T <0.01 NG/ML 0.00 - 0.10 1 CBC W/Automated Diff 09/28/[address] [address] [phone] CBC W/Automated Diff (SEE NOTE) 2 WBC 4.8 10^3/uL 4.2 - 11.0 RBC [...] Lymph 14.5 % Low 25.0 - 40.0 Foster 29.0 % High 3.0 - 8.0 Eos 4.0 % 0.0 - 7.0 Baso 1.7 % 0.0 - 2.5 %Ig 0.8 % High 0.0 - 0.0 %NRBC 0.0 % 0.0 - 0.0 #Neut 2.38 10^3/uL 2.00 - 6.90 #Lymph 0.69 10^3/uL 0.60 - 3.40 #Foster 1.38 10^3/uL High 0.00 - 0.90 #Eos 0.19 10^3/uL 0.00 - 0.70 #Baso 0.08 10^3/uL 0.00 - 0.20 #Ig 0.04 10^3/uL 0.00 - 0.10 #NRBC 0.00 10^3/uL 0.00 - 0.00 Manual Diff SEE BELOW Segs 45 % 37 - 80 Band 0 % 0 - 5 %Lymph 39 % 25 - 40 %Foster 10 % High 3 - 8 %Eos 5 % 0 - 7 %Baso 1 % 0 - 2 RBC Morph NOT INDICATED Comprehensive Metabolic Panel 09/28/2020 [facility] [address] [place], [place] [id number] [phone] Comprehensive Metabo (SEE NOTE) 3 Sodium 138 mEq/L 134 - 153 Potassium [...] 45 mL/min Afr Amer GFR 55 mL/min 4 Laboratory test finding 09/28/2020 [facility] l [address] [place] [address] [phone] Magnesium Serum 1.5 mg/dL Low 1.7 - 2.2 Laboratory test finding 09/28/2020 [place] [address] [phone] Troponin T <0.01 NG/ML 0.00 - 0.10 5 CBC W/Automated Diff 08/15/2020 [place] [address] [phone] CBC W/Automated Diff (SEE NOTE) 6 WBC 9.7 10^3/uL 4.2 - 11.0 RBC [...] Lymph 7.4 % Low 25.0 - 40.0 [place] 27.0 % High 3.0 - 8.0 Eos 2.7 % 0.0 - 7.0 Baso 1.0 % 0.0 - 2.5 %Ig 1.1 % High 0.0 - 0.0 %NRBC 0.0 % 0.0 - 0.0 #Neut 5.87 10^3/uL 2.00 - 6.90 #Lymph 0.72 10^3/uL 0.60 - 3.40 #Foster 2.61 10^3/uL High 0.00 - 0.90 #Eos 0.26 10^3/uL 0.00 - 0.70 #Baso 0.10 10^3/uL 0.00 - 0.20 #Ig 0.11 10^3/uL High 0.00 - 0.10 #NRBC 0.00 10^3/uL 0.00 - 0.00 Manual Diff SEE BELOW Segs 67 % 37 - 80 Band 0 % 0 - 5 %Lymph 12 % Low 25 - 40 %Foster 18 % High 3 - 8 %Eos 3 % 0 - 7 %Baso 0 % 0 - 2 RBC Morph NOT INDICATED Laboratory test finding 08/15/2020 [facility] [address] [place], [place] [address] [phone] Magnesium Serum 1.1 mg/dL Low 1.7 - 2.2 Iron 28 g/dL Low 42 - 135 Comprehensive Metabolic Panel 08/15/2020 [facility] [address] [place] [address] [phone] Comprehensive Metabo (SEE NOTE) 7 Sodium 137 mEq/L 134 - 153 Potassium [...] 45 mL/min Afr Amer GFR 55 mL/min 8 Laboratory test finding 08/15/2020 [facility] [address] [place] [address] [phone] D-Dimer 1.41 ug/mL High 0.27 - 0.50 Pro-BNP 1005 pg/mL High 0 - 125 Hgba1c 5.2 % 4.4 - 6.1 9 1 TROPONIN T 0.1 ng/ml Recommended as the clinical th reshold value for Troponin T. 2 COMPLETE BLOOD COUNT 3 COMPREHENSIVE METABOLIC PANE L 4 Male GFR Interprentation 20-49 yrs >60 mL/min Normal 50-59 yrs >56 mL/min Normal 60-69 yrs >49 mL/min Normal 70-79yrs >42 mL/min Normal 80 and above >35 mL/min Normal Female GFR Interpretation 20-39 yrs >60 mL/min Normal 40-49 yrs >58 mL/min Normal 50-59 yrs >51 mL/min Normal 60-69 yrs >45 mL/min Normal 70-79 yrs >39 mL/min Normal 80 and above >32 mL/min Normal 5 TROPONIN T 0.1 ng/ml Recommended as the clinical th reshold value for Troponin T. 6 COMPLETE BLOOD COUNT 7 COMPREHENSIVE METABOLIC PANE L 8 Male GFR Interprentation 20-49 yrs >60 mL/min Normal 50-59 yrs >56 mL/min Normal 60-69 yrs >49 mL/min Normal 70-79yrs >42 mL/min Normal 80 and above >35 mL/min Normal Female GFR Interpretation 20-39 yrs >60 mL/min Normal 40-49 yrs >58 mL/min Normal 50-59 yrs >51 mL/min Normal 60-69 yrs >45 mL/min Normal 70-79 yrs >39 mL/min Normal 80 and above >32 mL/min Normal 9 {A1] {HB] Procedures Date Code Description Status 11/07/2020 62599 EKG Completed 10/09/2020 88281 24 Hour Holter Monitoring Comple domenico 10/03/2020 89306 Echocardiogram, Complete Complet ed 08/18/2020 61629 Echocardiogram, Complete Complet ed 08/18/2020 06012 24 Hour Holter Monitoring Comple [facility] Encounters Type Date Location Provider Dx Diagnosis Office Visit 11/07/2020 10:45a [facility] R06.00 Dyspnea, unspecified I48.0 Paroxysmal atrial fibrillati on J43.9 Emphysema, unspecified I11.9 [facility] I49.49 Other premature depolarizati on Office Visit 10/03/2020 9:15a [facility] Osmel Alvarez M.D[facility] .[facility] I11.9 Hypertensive heart disease without heart failure I48.0 Paroxysmal atrial fibrillati on G45.9 Transient cerebral ischemic attack, unspecified I42.9 Cardiomyopathy, unspecified Office Visit 08/29/2020 11:30a [facility] Osmel Alvarez M.D[facility] .[facility] I50.20 Unspecified systolic (congestive) heart failure J43.9 Emphysema, unspecified I11.9 Hypertensive heart disease w [facility] heart failure Office Visit 08/22/2020 11:15a [facility] Osmel Alvarez [facility] I50.20 Unspecified systolic (congestive) heart failure Office Visit 08/15/2020 9:15a [facility] Osmel Alvarez [facility] .[facility] I50.20 Unspecified systolic (congestive) heart failure I26.99 Other pulmonary embolism wit hout acute cor pulmonale Office Visit 06/08/2020 2:15p [facility] Osmel Alvarez M.D[facility] .[facility] I11.9 Hypertensive heart disease without heart failure I80.201 Phlbts and thombophlb of uns p deep vessels of r low extrem I26.99 Other pulmonary embolism wit hout acute cor pulmonale Assessments Date Code Description Provider 11/07/2020 R06.00 Dyspnea, unspecified Osmel ni M.D[facility] 11/07/2020 I48.0 Paroxysmal atrial fibrillation Sarah Alvarez M.D[facility] 11/07/2020 J43.9 Emphysema, unspecified Osmel white M.D[facility]. 11/07/2020 I11.9 Hypertensive heart disease witho de heart failure Osmel Alvarez M[facility] 11/07/2020 I49.49 Other premature depolarization Sarah Alvarez M.D[facility] 10/09/2020 R00.2 Palpitations Evelyn Blake, P.C. 10/03/2020 I11.9 Hypertensive heart disease witho ut heart failure Osmel Alvarez [facility] 10/03/2020 I48.0 Paroxysmal atrial fibrillation Sarah Alvarez M.D[facility] 10/03/2020 G45.9 Transient cerebral ischemic kierra ck, marcelaified Osmel Alvarez [facility] 10/03/2020 I42.9 Cardiomyopathy, unspecified Brisa Alvarez M.D., [facility]. 09/28/2020 G45.9 Transient cerebral ischemic kierra ck, unspecified Osmel Alvarez [facility] 09/27/2020 G45.9 Transient cerebral ischemic kierra ck, unspecallison Alvarez M.D., P.C. 08/29/2020 I50.20 Unspecified systolic [...] bronchus and lung [facility] 06/08/2020 I11.9 Hypertensive heart disease witho ut heart failure [facility] 06/08/2020 I80.201 Phlebitis and thromb ophlebitis of unspecified deep vessels of right lower extremity [facility] 06/08/2020 I26.99 Other pulmonary embolism without acute cor pulmonale [facility] Plan of Treatment Future Appointment(s):* 12/12/2020 9:45 am - [facility] at [facility]
--- OUTSIDE RECORDS SUMMARY | 2020-12-23 14:04 | CCD | Continuity of Care Document ---
Author Author Chantale BLAKE P. C. Organization Unknown Address [address] [place] [address] Phone [phone] Care Team Providers Care Telegraphic Typewriter Installer Name Role Phone OSMEL ALVAREZ M.D. P.C. AUTM [phone] Social History Type Date Description Comments Sex [...] M.D., P. C. 08/15/2020 Bystolic 5mg Tablets [facility] Diltiazem HCL ER Coated Beads 180mg Caps ER 24HR Take One Tablet By Mouth Daily 90caps Osmel ford M.D., P.[facility]. Xarelto 10mg Tablets Take One Tablet By Mouth Daily 90tabs Osmel Alvarez M.D., P.[facility] 000 Betamethasone Dipropionate 0.05% O intment [facility] Pantoprazole Sodium 40mg Tablets Gail Chacon Lorazepam [...] H/L Range Note Laboratory test finding 09/28/[address] [address] [phone] Troponin T <0.01 NG/ML 0.00 - 0.10 1 CBC W/Automated Diff 09/28/[address] [address] [phone] CBC W/Automated Diff (SEE NOTE) 2 WBC [...] Lymph 14.5 % Low 25.0 - 40.0 [place] 29.0 % High 3.0 - 8.0 Eos 4.0 % 0.0 - 7.0 Baso 1.7 % 0.0 - 2.5 %Ig 0.8 % High 0.0 - 0.0 %NRBC 0.0 % 0.0 - 0.0 #Neut 2.38 10^3/uL 2.00 - 6.90 #Lymph 0.69 10^3/uL 0.60 - 3.40 #[place] 1.38 10^3/uL High 0.00 - 0.90 #Eos 0.19 10^3/uL 0.00 - 0.70 #Baso 0.08 10^3/uL 0.00 - 0.20 #Ig 0.04 10^3/uL 0.00 - 0.10 #NRBC 0.00 10^3/uL 0.00 - 0.00 Manual Diff SEE BELOW Segs 45 % 37 - 80 Band 0 % 0 - 5 %Lymph 39 % 25 - 40 %[place] 10 % High 3 - 8 %Eos 5 % 0 - 7 %Baso 1 % 0 - 2 RBC Morph NOT INDICATED Comprehensive Metabolic Panel 09/28/2020 [facility] [address] [place] [address] [phone] Comprehensive Metabo (SEE NOTE) 3 Sodium 138 [...] 55 mL/min 4 Laboratory test finding 09/28/2020 [place] [address] [phone] Magnesium Serum 1.5 mg/dL Low 1.7 - 2.2 Laboratory test finding 09/28/2020 [place] [address] [phone] Troponin T <0.01 NG/ML 0.00 - 0.10 5 CBC W/Automated Diff 08/15/2020 [place] [address] [phone] CBC W/Automated Diff (SEE NOTE) 6 WBC [...] Lymph 7.4 % Low 25.0 - 40.0 [place] 27.0 % High 3.0 - 8.0 Eos 2.7 % 0.0 - 7.0 Baso 1.0 % 0.0 - 2.5 %Ig 1.1 % High 0.0 - 0.0 %NRBC 0.0 % 0.0 - 0.0 #Neut 5.87 10^3/uL 2.00 - 6.90 #Lymph 0.72 10^3/uL 0.60 - 3.40 #[place] 2.61 10^3/uL High 0.00 - 0.90 #Eos 0.26 10^3/uL 0.00 - 0.70 #Baso 0.10 10^3/uL 0.00 - 0.20 #Ig 0.11 10^3/uL High 0.00 - 0.10 #NRBC 0.00 10^3/uL 0.00 - 0.00 Manual Diff SEE BELOW Segs 67 % 37 - 80 Band 0 % 0 - 5 %Lymph 12 % Low 25 - 40 %[place] 18 % High 3 - 8 %Eos 3 % 0 - 7 %Baso 0 % 0 - 2 RBC Morph NOT INDICATED Laboratory test finding 08/15/2020 [facility] [address] [place] [address] [phone] Magnesium Serum 1.1 mg/dL Low 1.7 - 2.2 Iron 28 g/dL Low 42 - 135 Comprehensive Metabolic Panel 08/15/2020 [facility] [address] [place] [address] [phone] Comprehensive Metabo (SEE NOTE) 7 Sodium 137 [...] 55 mL/min 8 Laboratory test finding 08/15/2020 [facility] [address] [place] [address] [phone] D-Dimer 1.41 ug/mL High 0.27 - 0.50 [...] {HB] Procedures Date Code Description Status 11/07/2020 40047 EKG Completed 10/09/2020 52891 24 Hour Holter Monitoring Comple domenico 10/03/2020 10493 Echocardiogram, Complete Complet ed 08/18/2020 69294 Echocardiogram, Complete Complet ed 08/18/2020 64853 24 Hour Holter Monitoring Comple [facility] Encounters Type Date Location Provider Dx Diagnosis Office Visit 11/07/2020 10:45a [facility] Osmel Alvarez M.D., P .C. R06.00 Dyspnea, unspecified I48.0 Paroxysmal atrial fibrillati on J43.9 Emphysema, unspecified I11.9 Hypertensive heart disease w [facility] heart failure I49.49 Other premature depolarizati on Office Visit 10/03/2020 9:15a [facility] Jurgen Alvarez M.D., P .[facility]. I11.9 Hypertensive heart disease without heart failure I48.0 Paroxysmal atrial fibrillati on G45.9 Transient cerebral ischemic attack, unspecified I42.9 Cardiomyopathy, unspecified Office Visit 08/29/2020 11:30a [facility] Osmel Alvarez M.D[facility] P .[facility] I50.20 Unspecified systolic (congestive) heart failure J43.9 Emphysema, unspecified I11.9 Hypertensive heart disease w [facility] heart failure Office Visit 08/22/2020 11:15a [facility] Osmel Alvarez M.D., P .[facility] I50.20 Unspecified systolic (congestive) heart failure Office Visit 08/15/2020 9:15a [facility] Osmel Alvarez M.D[facility] P .[facility] I50.20 Unspecified systolic (congestive) heart failure I26.99 Other pulmonary embolism wit hout acute cor pulmonale Assessments Date Code Description Provider 11/07/2020 R06.00 Dyspnea, unspecified Osmel ni M.D., [facility]. 11/07/2020 I48.0 Paroxysmal atrial fibrillation Sarah Alvarez M.D., P.[facility]. 11/07/2020 J43.9 Emphysema, unspecified Osmel white M.D., P.[facility]. 11/07/2020 I11.9 Hypertensive heart disease witho ak heart failure Osmel Alvarez M.D., P.[facility]. 11/07/2020 I49.49 Other premature depolarization Sarah Alvarez M.D., P.[facility]. 10/09/2020 R00.2 Palpitations Evelyn Blake, P.C. 10/03/2020 I11.9 Hypertensive heart disease witho ak heart failure Osmel Alvarez M.D[facility] P.[facility]. 10/03/2020 I48.0 Paroxysmal atrial fibrillation Sarah Alvarez M.D., P.C. 10/03/2020 G45.9 Transient cerebral ischemic kierra ck, connie Alvarez M.D., P.C. 10/03/2020 I42.9 Cardiomyopathy, unspecified Brisa Alvarez M.D., P.C. 09/28/2020 G45.9 Transient cerebral ischemic kierra ck, connie Alvarez M.D., P.C. 09/27/2020 G45.9 Transient cerebral [...] pm - Osmel Alvarez M.D., P[facility] at [facility]
--- OUTSIDE RECORDS SUMMARY | 2020-12-23 14:04 | CCD | Continuity of Care Document ---
Author Author Chantale MERINO LA Organization Unknown Address [address] [place] [address] [place] [address] Phone [phone] Care Team Providers Care Histopath Tech Name Role Phone [facility] AUTM [phone] [employer] AUTM [phone] Problems Description No Information Available Social History [...] 11/10/2020 H66.91 Otitis media, unspecified, right ear JOHN Small 11/10/2020 Z20.828 Contact with and (mann [...]
--- OUTSIDE RECORDS SUMMARY | 2020-12-23 14:04 | CCD | Continuity of Care Document ---
Author Author Chantale BLAKE P. C. Organization Unknown Address [address] [place] [id number] Phone [phone] Care Team Providers Care Statistical Analyst Name Role Phone OSMEL ALVAREZ M.D. P.C. AUTM [phone] Social History Type Date Description Comments Sex [...] M.D., P. C. 08/15/2020 Bystolic 5mg Tablets [facility] Diltiazem HCL ER Coated Beads 180mg Caps ER 24HR Take One Tablet By Mouth Daily 90caps Osmel ford M.D., P.[facility]. Xarelto 10mg Tablets Take One Tablet By Mouth Daily 90tabs Osmel Alvarez M.D., P.[facility] 000 Betamethasone Dipropionate 0.05% O intment [facility] Pantoprazole Sodium 40mg Tablets Gail Chacon Lorazepam [...] H/L Range Note Laboratory test finding 09/28/[address] [address] [phone] Troponin T <0.01 NG/ML 0.00 - 0.10 1 CBC W/Automated Diff 09/28/[address] [address] [phone] CBC W/Automated Diff (SEE NOTE) 2 WBC [...] Lymph 14.5 % Low 25.0 - 40.0 [place] 29.0 % High 3.0 - 8.0 Eos 4.0 % 0.0 - 7.0 Baso 1.7 % 0.0 - 2.5 %Ig 0.8 % High 0.0 - 0.0 %NRBC 0.0 % 0.0 - 0.0 #Neut 2.38 10^3/uL 2.00 - 6.90 #Lymph 0.69 10^3/uL 0.60 - 3.40 #[place] 1.38 10^3/uL High 0.00 - 0.90 #Eos 0.19 10^3/uL 0.00 - 0.70 #Baso 0.08 10^3/uL 0.00 - 0.20 #Ig 0.04 10^3/uL 0.00 - 0.10 #NRBC 0.00 10^3/uL 0.00 - 0.00 Manual Diff SEE BELOW Segs 45 % 37 - 80 Band 0 % 0 - 5 %Lymph 39 % 25 - 40 %[place] 10 % High 3 - 8 %Eos 5 % 0 - 7 %Baso 1 % 0 - 2 RBC Morph NOT INDICATED Comprehensive Metabolic Panel 09/28/2020 [facility] [address] [place] [address] [phone] Comprehensive Metabo (SEE NOTE) 3 Sodium 138 [...] 55 mL/min 4 Laboratory test finding 09/28/2020 [place] [address] [phone] Magnesium Serum 1.5 mg/dL Low 1.7 - 2.2 Laboratory test finding 09/28/2020 [place] [address] [phone] Troponin T <0.01 NG/ML 0.00 - 0.10 5 CBC W/Automated Diff 08/15/2020 [place] [address] [phone] CBC W/Automated Diff (SEE NOTE) 6 WBC [...] Lymph 7.4 % Low 25.0 - 40.0 [place] 27.0 % High 3.0 - 8.0 Eos 2.7 % 0.0 - 7.0 Baso 1.0 % 0.0 - 2.5 %Ig 1.1 % High 0.0 - 0.0 %NRBC 0.0 % 0.0 - 0.0 #Neut 5.87 10^3/uL 2.00 - 6.90 #Lymph 0.72 10^3/uL 0.60 - 3.40 #[place] 2.61 10^3/uL High 0.00 - 0.90 #Eos 0.26 10^3/uL 0.00 - 0.70 #Baso 0.10 10^3/uL 0.00 - 0.20 #Ig 0.11 10^3/uL High 0.00 - 0.10 #NRBC 0.00 10^3/uL 0.00 - 0.00 Manual Diff SEE BELOW Segs 67 % 37 - 80 Band 0 % 0 - 5 %Lymph 12 % Low 25 - 40 %[place] 18 % High 3 - 8 %Eos 3 % 0 - 7 %Baso 0 % 0 - 2 RBC Morph NOT INDICATED Laboratory test finding 08/15/2020 [facility] [address] [place] [address] [phone] Magnesium Serum 1.1 mg/dL Low 1.7 - 2.2 Iron 28 g/dL Low 42 - 135 Comprehensive Metabolic Panel 08/15/2020 [facility] [address] [place] [address] [phone] Comprehensive Metabo (SEE NOTE) 7 Sodium 137 [...] 55 mL/min 8 Laboratory test finding 08/15/2020 [facility] l [address] [place] [address] [phone] D-Dimer 1.41 ug/mL High 0.27 - 0.50 [...] {HB] Procedures Date Code Description Status 12/12/2020 92588 Echocardiogram, Complete Complet ed 11/07/2020 67812 EKG Completed 10/09/2020 81228 24 Hour Holter Monitoring Comple domenico 10/03/2020 15030 Echocardiogram, Complete Complet ed 08/18/2020 06504 Echocardiogram, Complete Complet ed 08/18/2020 79017 24 Hour Holter Monitoring Comple domenico Encounters Type Date Location Provider Dx Diagnosis Office Visit 11/07/2020 10:45a [facility] Osmel Alvarez M.D., P .C. R06.00 Dyspnea, unspecified I48.0 Paroxysmal atrial fibrillati on J43.9 Emphysema, unspecified I11.9 Hypertensive heart disease w ithout heart failure I49.49 Other premature depolarizati on Office Visit 10/03/2020 9:15a [facility] Jurgen Alvarez M.D., P .C. I11.9 Hypertensive heart disease without heart failure I48.0 Paroxysmal atrial fibrillati on G45.9 Transient cerebral ischemic attack, unspecified I42.9 Cardiomyopathy, unspecified Office Visit 08/29/2020 11:30a [facility] Osmel Alvarez M.D., P .C. I50.20 Unspecified systolic (congestive) heart failure J43.9 Emphysema, unspecified I11.9 Hypertensive heart disease w [facility] heart failure Office Visit 08/22/2020 11:15a [facility] Osmel Alvarez M.D., P .C. I50.20 Unspecified systolic (congestive) heart failure Office Visit 08/15/2020 9:15a [facility] Osmel Alvarez M.D., P .C. I50.20 Unspecified [...] P.C. 11/07/2020 I11.9 Hypertensive heart disease witho az heart failure Osmel Alvarez M.D., P.[facility]. 11/07/2020 I49.49 Other premature depolarization Sarah Alvarez M.D., P.[facility]. 10/09/2020 R00.2 Palpitations Evelyn Blake, P.C. 10/03/2020 I11.9 Hypertensive heart disease witho az heart failure Osmel Alvarez M.D., P.C. 10/03/2020 [...] 08/06/2020 J44.9 Chronic obstructive pulmonary di sease, marcelaified Osmel Alvarez M.D., P.[facility]. 08/06/2020 F41.9 Anxiety [...] pm - Osmel Alvarez M[facility] at [facility]
--- OUTSIDE RECORDS SUMMARY | 2020-12-23 14:04 | CCD ---
Author Author Cesar Hadley MD [facility] Organization Cesar Hadley MD [facility] Address [address] [place] [address] Phone Care Team Providers Care Bus Transportation Manager Name Role Phone Bonnie GARCIA, Franca PP [phone] Hershowitz OD, Timmy Unavailable [phone] Laron DO, Siva Unavailable [phone] Reason for Referral No Reason for Referral Recorded Problems Includes: Active, inactive, and resolved Problems All Visits Onset Date - Time Resolved Date - Time Provider Co ndition Status Transient Ischemic Attack (Tia) 10/05/2020 - 12:00AM Sarah Larry DO Active Cataract Senile Nuclear 06/15/2020 - 12:00AM Siva evangelista DO Active Dry Eye Syndrome 06/12/2018 - 12:00AM Siva mc DO Active 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 02/03/2017 - 12:00AM Siva Larry DO Active Vitreous Disorders Degeneration 02/03/2017 - 12:00AM Sarah Larry DO Active Plan of Treatment Future Appointments Date Time Location Provider 8 Month Follow-Up 02/16/2021 12:30PM [facility] Siva Larry DO Findings Encounter Date Ordered corneal pachymetry A Pachymetry is indicated for glaucoma suspect to determine whether or not the corneas are of normal thickness and whether or not the measured eye pressure needs to adjusted NEW PATIENT WITH REFERRAL with Siva Larry DO 02/03/2017 Ordered optical coherence tomography : A n optical coherence tomography scan of the disc for glaucoma suspect is indicated to determine if there are any structural changes to the optic nerve NEW PATIENT WITH REFERRAL with Siva Larry DO 02/03/2017 Ordered visual patterson test : A visual fi eld test 24-2 is indicated for glaucoma suspect to determine if there are any functional changes to the optic nerve NEW PATIENT WITH REFERRAL with Siva Larry DO 02/03/2017 Assessments Includes: Assessments for all patient encounters Findings Encounter Date Transient ischemic attack TRIAGE NON URGENT with Siva north DO 10/05/2020 Dry eye syndrome 8 Month Follow-Up with Siva Larry DO 06/15/2020 Nuclear senile cataract 8 Month Follow-Up with Siva dempsey DO 06/15/2020 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 8 Month Fo llow-Up with Siva Larry DO 06/15/2020 Vitreous degeneration 8 Month Follow-Up with Siva Salgado in DO 06/15/2020 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 TESTING - VISUAL FIELD & OCT with Siva Larry DO 06/07/2020 Dry eye syndrome 8 Month Follow-Up with Siva Larry DO 10/15/2019 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 8 Month Fo llow-Up with Siva Larry DO 10/15/2019 Vitreous degeneration 8 Month Follow-Up with Siva Salgado in DO 10/15/2019 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 TESTING - VISUAL FIELD & OCT with Siva Larry DO 04/15/2019 Dry eye syndrome 8 Month Follow-Up with Siva Larry DO 02/09/2019 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 8 Month Fo llow-Up with Siva Larry DO 02/09/2019 Vitreous degeneration 8 Month Follow-Up with Siva Salgado in DO 02/09/2019 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 TESTING - VISUAL FIELD & OCT with Siva Larry DO 07/13/2018 Dry eye syndrome 8 Month Follow-Up with Siva Larry DO 06/12/2018 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 8 Month Fo llow-Up with Siva Larry DO 06/12/2018 Vitreous degeneration 8 Month Follow-Up with Siva Salgado in DO 06/12/2018 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 6 Month Fo llow-Up with Siva Larry DO 10/22/2017 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 TESTING VF 24-2 & OCT DISC with Siva Larry DO 08/14/2017 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 IOP CHECK with Sarah Larry DO 04/25/2017 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 TESTING VF 24-2 & OCT DISC with Siva Laron SCHMITZ 02/13/2017 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 NEW PATIEN T WITH REFERRAL with Siva Laron SCHMITZ 02/03/2017 Vitreous degeneration NEW PATIENT WITH REFERRAL with Siva Laron SCHMITZ 02/03/2017 Instructions Instructions not supported for this document typeNo Instructions Recorded Medical Equipment - Implanted Devices Includes: Current and historical DevicesNo Medical Equipment Recorded Medications Includes: Current and historical Medications Current Medications (continue as prescribed) Diltiazem 180 mg Oral Tablet 10/05/2020 Provider: Diagnosis: Breo Ellipta 100-25 MCG/INH Inhalation Aerosol Powder Breath Activated 10/05/2020 Provider: Diagnosis: 1 puff daily Adult Aspirin EC Low Strength 81 MG Oral Tablet Delayed Rele ase 10/05/2020 Provider: Diagnosis: Folic Acid 800 MCG Oral Tablet 10/05/2020 Provider: Diagnosis: Xarelto 10 MG Oral Tablet 10/05/2020 Provider: Diagnosis: Pantoprazole 40 MG Oral Tablet 10/05/2020 Provider: Diagnosis: Magnesium 1000 MG CAP Oral Capsule 10/05/2020 Provi marcus: Diagnosis: Potassium 10 mg Oral Tablet 10/05/2020 Provider: Diagnosis: Spiriva Respimat 2.5 MCG/ACT Inhalation Aerosol Solution Provider: Diagnosis: Furosemide 20 MG Oral Tablet 06/15/2020 Provider: Diagnosis: Once a Week Bystolic 5 MG Oral Tablet 06/15/2020 Provider: Diagnosis: Lisinopril 40MG Oral Tablet 02/03/2017 Provider: Diagnosis: Past Medications on file Magnesium 500 MG Oral Capsule 06/15/2020 - 10/05/2020 Provid er: Diagnosis: Symbicort 160-4.5 MCG/ACT Inhalation Aerosol 06/15/2020 - Provider: Diagnosis: Xarelto 20MG Oral Tablet 06/12/2018 - 10/05/2020 Provider: Diagnosis: Pantoprazole Sodium 20MG Oral Tablet, enteric coated 017 - 10/05/2020 Provider: Diagnosis: Singulair 10MG Oral Tablet 02/03/2017 - 06/15/2020 Provider: Diagnosis: ZyrTEC Allergy 10MG Oral Tablet 02/03/2017 - 10/05/2020 Prov ider: Diagnosis: Medications Administered Includes: Administered Medications in patient's chartNo Administered Medications Recorded Vital Signs Includes: Vital Signs from 10/05/2019 through 10/05/2020No Vital Signs Recorded For Specified Dates Results Includes: Results from 10/05/2019 through 10/05/2020No Results Recorded For Specified Dates History of Present Illness History of Present Illness not supported for this document typeNo History of Present Illness Recorded Social History Description Last Updated No tobacco use 10/05/2020 Not using drugs 10/05/2020 Smoking status : Former smoker 10/05/2020 Alcohol use -Occasional 10/15/2019 Previous smoking history 10/15/2019 Procedures and Surgical History Includes: Procedures from 10/05/2019 through 10/05/2020 Procedures Code Diagnosis Performing Provider Service Location Service Date Intermediate Eye Exam Established Patient 56518 TRANSI ENT ISCHEMIC ATTACK (TIA) Siva Larry DO 10/05/2020 Intermediate Eye Exam Established Patient 58844 Open angle with borderline findings, low risk, bilateral, Age-related nuclear cataract, bilateral, Dry eye syndrome of bilateral lacrimal glands Siva Lawler MD [facility] 06/15/2020 Visual Field 00880 Open angle with borderline findi ngs, low risk, bilateral Siva Lawler MD [facility] 06/07/2020 Scodi, optic nerve with interpretation and report 47686 Open angle with borderline findings, low risk, bilateral Siva Brown MD [facility] 06/07/2020 Intermediate Eye Exam Established Patient 19209 Open angle with borderline findings, low risk, bilateral, Dry eye syndrome of bilateral lacrimal glands, Vitreous degeneration, bilateral Svia Lawler MD [facility] 10/15/2019 Surgical History Last Updated Surgical / procedural history Appendix, Tonsils- childhood, Spinal fusion 1998, Septoplasty 199810/15/2019 Medical History Includes: Medical History in patient's chart Description Last Updated No recent change in medical history 10/05/2020 Reported medical history Eczema, Lung C ancer, Hypertension, Asthma, Bone Cancer 06/15/2020 Currently wearing eyeglasses 10/15/2019 History of asthma 10/15/2019 History of hypertension 10/15/2019 Family History Includes: Family History in patient's chart Description Last Updated Maternal history of arthritis 10/05/2020 Maternal history of cataract 10/05/2020 Paternal history of diabetes mellitus 10/05/2020 Paternal history of hypertension 10/05/2020 Paternal history of stroke/cerebrovascular accident Sororal history of arthritis 10/05/2020 Sororal history of hypertension 10/05/2020 Review of Systems Review of Systems not supported for this document typeNo Review of Systems Recorded Mental Status Mental Status not supported for this document type Description Oriented to time, place, and person Functional Status Functional Status not supported for this document typeNo Functional Status Recorded Physical Exam Physical Exam not supported for this document typeNo Physical Exam Recorded Immunizations Includes: Immunizations in patient's chartNo Immunizations Recorded Allergies Includes: Active, inactive, and resolved Allergies Substance Type Reaction Onset Date - Time Resolved Date - Ti me Status Penicillin G Benzathine Allergy 02/03/2017 - 12:00AM Active Encounters Includes: Encounters from 10/05/2019 through 10/05/2020 Encounter Provider Location Date Check-In Time Check-Out Time D iagnosis TRIAGE NON URGENT Siva Lawler MD [facility] 01/2020 9:19AM 10:07AM Transient Ischemic Attack (T ia) 8 Month Follow-Up Siva Lawler MD [facility] 12:55PM 1:49PM Dry Eye Syndrome, Borderline Glaucoma Open Angle with Borderline Findings Both Eyes, Vitreous Disorders Degeneration, Cataract Senile Nuclear TESTING - VISUAL FIELD & OCT Siva Velasquez MD [facility] 06/07/2020 8:14AM 9:48AM Borderline Glaucoma Open Angle with Borderline Findings Both Eyes OCT DISC Cesar Hadley MD [facility] 06/07/2020 8:14AM 9:48 AM 8 Month Follow-Up Siva Lawler MD [facility] 12:29PM 1:08PM Borderline Glaucoma Open Ang le with Borderline Findings Both Eyes, Dry Eye Syndrome, Vitreous Disorders Degeneration Insurance Includes: Active Insurance Policies Plan Name Member ID Group # Subscriber Relationship Effective Da fela 1 - [facility] [employer] [id number] HurstNaman hernandez 11/07/2019 - Unknown 2 - Medicare Part B [facility] ([facility]) [id number] Yeni Hurst Self Advance Directives Includes: Current Advance DirectivesNo Advance Directives Recorded Health Concerns Includes: Active Health ConcernsNo Active Health Concerns Recorded Goals Includes: Active GoalsNo Active Goals Recorded Interventions Includes: Interventions for active GoalsNo Interventions Recorded Evaluations & Outcomes Includes: Evaluations & Outcomes for active GoalsNo Outcomes Recorded
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
--- OUTSIDE RECORDS SUMMARY | 2020-12-23 14:04 | CCD | Continuity of Care Document ---
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 AUTM [phone] Social History Type Date Description Comments Sex Unknown Allergies, Adverse Reactions, Alerts Active Allergies Reaction Severity Comments Date Penicillin V 08/10/2020 Seafood 08/10/2020 Medications Active Medications SIG Qnty Indications Ordering Provide r Date Mag-200 200mg Tablets 6 tabs daily [facility] 12/12/[address] Mack by mouth every day [facility] 021 Breo Ellipta 200-25mcg/Inh Aerosol [facility] 11/07/2020 Furosemide 20mg Tablets Take One Tablet By Mouth Daily 5 days a week [facility] 08/15/2020 Bystolic 5mg Tablets [facility] Diltiazem HCL ER Coated Beads 180mg Caps ER 24HR Take One Tablet By Mouth Daily 90caps Osmel ford [facility] Xarelto 10mg Tablets Take One Tablet By Mouth Daily 90tabs [facility] 000 Betamethasone Dipropionate 0.05% O intment [facility] Pantoprazole Sodium 40mg Tablets Gail [...] H/L Range Note Laboratory test finding 12/21/2020 [facility] [address] [place], [place] [id number] [phone] Magnesium Serum 2.1 mg/dL 1.7 - 2.2 Comprehensive Metabolic Panel 12/21/2020 [facility] [address] [place] [address] [phone] Comprehensive Metabo (SEE NOTE) 1 Sodium 135 [...] >60 mL/min 2 CBC W/Automated Diff 12/21/[address] [id number] [phone] CBC W/Automated Diff (SEE NOTE) 3 WBC [...] Lymph 8.8 % Low 25.0 - 40.0 [place] 5.2 % 3.0 - 8.0 Eos 0.0 % 0.0 - 7.0 Baso 0.0 % 0.0 - 2.5 %Ig 1.4 % High 0.0 - 0.0 %NRBC 0.0 % 0.0 - 0.0 #Neut 3.57 10^3/uL 2.00 - 6.90 #Lymph 0.37 10^3/uL Low 0.60 - 3.40 #[place] 0.22 10^3/uL 0.00 - 0.90 #Eos 0.00 10^3/uL 0.00 - 0.70 #Baso 0.00 10^3/uL 0.00 - 0.20 #Ig 0.06 10^3/uL 0.00 - 0.10 #NRBC 0.00 10^3/uL 0.00 - 0.00 Manual Diff SEE BELOW Segs 90 % High 37 - 80 Band 0 % 0 - 5 %Lymph 8 % Low 25 - 40 %[place] 2 % Low 3 - 8 %Eos 0 % 0 - 7 %Baso 0 % 0 - 2 RBC Morph NOT INDICATED Urinalysis 12/20/[address] [address] [phone] Urinalysis (SEE NOTE) 4, 5 Source R Color yellow Normal: Yellow Clarity clear Normal: Clear Spec Circle 1.015 1.001 - 1.030 pH 8 5 [...] Normal: None Seen Laboratory test finding 09/28/[address] [address] [phone] Troponin T <0.01 NG/ML 0.00 - 0.10 6 CBC W/Automated Diff 09/28/2020 [place] [address] [phone] CBC W/Automated Diff (SEE NOTE) 7 WBC [...] Lymph 14.5 % Low 25.0 - 40.0 [place] 29.0 % High 3.0 - 8.0 Eos 4.0 % 0.0 - 7.0 Baso 1.7 % 0.0 - 2.5 %Ig 0.8 % High 0.0 - 0.0 %NRBC 0.0 % 0.0 - 0.0 #Neut 2.38 10^3/uL 2.00 - 6.90 #Lymph 0.69 10^3/uL 0.60 - 3.40 #[place] 1.38 10^3/uL High 0.00 - 0.90 #Eos 0.19 10^3/uL 0.00 - 0.70 #Baso 0.08 10^3/uL 0.00 - 0.20 #Ig 0.04 10^3/uL 0.00 - 0.10 #NRBC 0.00 10^3/uL 0.00 - 0.00 Manual Diff SEE BELOW Segs 45 % 37 - 80 Band 0 % 0 - 5 %Lymph 39 % 25 - 40 %[place] 10 % High 3 - 8 %Eos 5 % 0 - 7 %Baso 1 % 0 - 2 RBC Morph NOT INDICATED Comprehensive Metabolic Panel 09/28/2020 [facility] ospital [address] [place] [address] [phone] Comprehensive Metabo (SEE NOTE) 8 Sodium 138 [...] 55 mL/min 9 Laboratory test finding 09/28/2020 [facility] [address] [place] [address] [phone] Magnesium Serum 1.5 mg/dL Low 1.7 - 2.2 Laboratory test finding [facility]/28/2020 [facility] [address] [place] [address] [phone] Troponin T <0.01 NG/ML 0.00 - 0.10 10 CBC W/Automated Diff 08/15/2020 [place] [address] [place] [address] [phone] CBC W/Automated Diff (SEE NOTE) 11 WBC [...] Lymph 7.4 % Low 25.0 - 40.0 [place] 27.0 % High 3.0 - 8.0 Eos 2.7 % 0.0 - 7.0 Baso 1.0 % 0.0 - 2.5 %Ig 1.1 % High 0.0 - 0.0 %NRBC 0.0 % 0.0 - 0.0 #Neut 5.87 10^3/uL 2.00 - 6.90 #Lymph 0.72 10^3/uL 0.60 - 3.40 #[place] 2.61 10^3/uL High 0.00 - 0.90 #Eos 0.26 10^3/uL 0.00 - 0.70 #Baso 0.10 10^3/uL 0.00 - 0.20 #Ig 0.11 10^3/uL High 0.00 - 0.10 #NRBC 0.00 10^3/uL 0.00 - 0.00 Manual Diff SEE BELOW Segs 67 % 37 - 80 Band 0 % 0 - 5 %Lymph 12 % Low 25 - 40 %[place] 18 % High 3 - 8 %Eos 3 % 0 - 7 %Baso 0 % 0 - 2 RBC Morph NOT INDICATED Laboratory test finding 08/15/2020 [facility] [address] [place] [address] [phone] Magnesium Serum 1.1 mg/dL Low 1.7 - 2.2 Iron 28 g/dL Low 42 - 135 Comprehensive Metabolic Panel 08/15/2020 [facility] [address] [place] [address] [phone] Comprehensive Metabo (SEE NOTE) 12 Sodium 137 [...] 55 mL/min 13 Laboratory test finding 08/15/2020 [facility] [address] [place] [address] [phone] D-Dimer 1.41 ug/mL High 0.27 - 0.50 [...] {HB] Procedures Date Code Description Status 12/12/2020 20765 Echocardiogram, Complete Complet ed 11/07/2020 62308 EKG Completed 10/09/2020 46216 24 Hour Holter Monitoring [facility] 10/03/2020 02298 Echocardiogram, Complete Complet ed 08/18/2020 97188 Echocardiogram, Complete Complet ed 08/18/2020 69035 24 Hour Holter Monitoring [facility] Encounters Type Date Location Provider Dx Diagnosis Office Visit 11/07/2020 10:45a [facility] O[facility]el Alvarez M[facility] R06.00 Dyspnea, unspecified I48.0 Paroxysmal atrial fibrillati on J43.9 Emphysema, unspecified I11.9 Hypertensive heart disease w ithout heart failure I49.49 Other premature depolarizati on Office Visit 10/03/2020 9:15a [facility] O[facility]el [facility] I11.9 Hypertensive heart disease without heart failure I48.0 Paroxysmal atrial fibrillati on G45.9 Transient cerebral ischemic attack, unspecified I42.9 Cardiomyopathy, unspecified Office Visit 08/29/2020 11:30a [facility] Osmel Alvarez M[facility] I50.20 Unspecified systolic (congestive) heart failure J43.9 Emphysema, unspecified I11.9 Hypertensive heart disease w [facility] heart failure Office Visit 08/22/2020 11:15a [facility] Osmel Alvarez M[facility] I50.20 Unspecified systolic (congestive) heart failure Office Visit 08/15/2020 9:15a [facility] Osmel Alvarez M.D[facility] .[facility]. I50.20 [...] P.C. 11/07/2020 I11.9 Hypertensive heart disease witho ca heart failure O[facility]el [facility] 11/07/2020 I49.49 Other premature depolarization Sarah Alvarez M[facility] 10/09/2020 R00.2 Palpitations Evelyn Josue, [facility] 10/03/2020 I11.9 Hypertensive heart disease witho [...] Alvarez M[facility] 08/18/2020 R00.2 Palpitations Evelyn Josue[facility] 08/18/2020 I42.9 Cardiomyopathy, unspecified Brisa Alvarez M.D[facility] 08/15/2020 I50.20 Unspecified systolic (congestive ) heart failure [facility]el [facility] 08/15/2020 I26.99 Other pulmonary embolism without acute cor pulmonale [facility] 08/07/2020 I48.0 Paroxysmal atrial fibrillation Sarah Alvarez M[facility] 08/07/2020 J44.9 Chronic obstructive pulmonary di sease, marcelaified [facility]el [facility] 08/07/2020 F41.9 Anxiety [...] pm - [facility] at [facility]
--- OUTSIDE RECORDS SUMMARY | 2020-12-23 14:04 | CCD | Continuity of Care Document ---
Author Author Chantale BLAKE P. C. 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 AUTM [phone] Social History Type Date Description Comments Sex [...] 1mg Tablets Maria Esther Minor MD Nystatin 369856Pdky/GM Ointment Maria Esther Minor MD Fluconazole 150mg Tablets Unknown Mupirocin 2% Ointment Unknown Pantoprazole Sodium 40mg Tablets Gail Chacon Potassium Chloride ER 10Meq Capsul es ER Take One Tablet By Mouth Twice Daily 180caps Osmel ni M.D[facility] Betamethasone Dipropionate 0.05% O intment [facility] Triamcinolone Acetonide Dental Paste 0.1% Paste Marlin Carter M.D. Meloxicam 7.5mg Tablets Unknown Xarelto 10mg Tablets Take One Tablet By Mouth Daily 90tabs [facility]el [facility] 000 Diltiazem HCL ER Coated Beads 180mg Caps ER 24HR Take One Tablet By Mouth Daily 90caps Osmel ford M[facility] Bystolic 5mg Tablets [facility] History Medications Potassium Chloride Jennifer ER 10Meq [...] H/L Range Note Laboratory test finding 09/28/[address] [address] [phone] Troponin T <0.01 NG/ML 0.00 - 0.10 1 CBC W/Automated Diff 09/28/[address] [address] [phone] CBC W/Automated Diff (SEE NOTE) 2 WBC [...] Lymph 14.5 % Low 25.0 - 40.0 [place] 29.0 % High 3.0 - 8.0 Eos 4.0 % 0.0 - 7.0 Baso 1.7 % 0.0 - 2.5 %Ig 0.8 % High 0.0 - 0.0 %NRBC 0.0 % 0.0 - 0.0 #Neut 2.38 10^3/uL 2.00 - 6.90 #Lymph 0.69 10^3/uL 0.60 - 3.40 #[place] 1.38 10^3/uL High 0.00 - 0.90 #Eos 0.19 10^3/uL 0.00 - 0.70 #Baso 0.08 10^3/uL 0.00 - 0.20 #Ig 0.04 10^3/uL 0.00 - 0.10 #NRBC 0.00 10^3/uL 0.00 - 0.00 Manual Diff SEE BELOW Segs 45 % 37 - 80 Band 0 % 0 - 5 %Lymph 39 % 25 - 40 %[place] 10 % High 3 - 8 %Eos 5 % 0 - 7 %Baso 1 % 0 - 2 RBC Morph NOT INDICATED Comprehensive Metabolic Panel 09/28/2020 [facility] ospital [address] [place], [place] [id number] [phone] Comprehensive Metabo (SEE NOTE) 3 Sodium 138 [...] 55 mL/min 4 Laboratory test finding 09/28/2020 [facility] [address] [place] [address] [phone] Magnesium Serum 1.5 mg/dL Low 1.7 - 2.2 Laboratory test finding 09/28/2020 [place] [address] [phone] Troponin T <0.01 NG/ML 0.00 - 0.10 5 CBC W/Automated Diff 08/15/2020 [place] [address] [phone] CBC W/Automated Diff (SEE NOTE) 6 WBC [...] Lymph 7.4 % Low 25.0 - 40.0 [place] 27.0 % High 3.0 - 8.0 Eos 2.7 % 0.0 - 7.0 Baso 1.0 % 0.0 - 2.5 %Ig 1.1 % High 0.0 - 0.0 %NRBC 0.0 % 0.0 - 0.0 #Neut 5.87 10^3/uL 2.00 - 6.90 #Lymph 0.72 10^3/uL 0.60 - 3.40 #[place] 2.61 10^3/uL High 0.00 - 0.90 #Eos 0.26 10^3/uL 0.00 - 0.70 #Baso 0.10 10^3/uL 0.00 - 0.20 #Ig 0.11 10^3/uL High 0.00 - 0.10 #NRBC 0.00 10^3/uL 0.00 - 0.00 Manual Diff SEE BELOW Segs 67 % 37 - 80 Band 0 % 0 - 5 %Lymph 12 % Low 25 - 40 %[place] 18 % High 3 - 8 %Eos 3 % 0 - 7 %Baso 0 % 0 - 2 RBC Morph NOT INDICATED Laboratory test finding [facility] [address] [place], [place] [address] [phone] Magnesium Serum 1.1 mg/dL Low 1.7 - 2.2 Iron 28 g/dL Low 42 - 135 Comprehensive Metabolic Panel 08/15/2020 [facility] o[facility] [address] [place] [address] [phone] Comprehensive Metabo (SEE NOTE) 7 Sodium 137 [...] 55 mL/min 8 Laboratory test finding 08/15/2020 [facility] [address] [place] [address] [phone] D-Dimer 1.41 ug/mL High 0.27 - 0.50 [...] {A1] {HB] Procedures Date Code Description Status 10/09/2020 28952 24 Hour Holter Monitoring Comple [facility] 10/03/2020 89911 Echocardiogram, Complete Complet ed 08/18/2020 72047 Echocardiogram, Complete Complet ed 08/18/2020 37155 24 Hour Holter Monitoring [facility] Encounters Type Date Location Provider Dx Diagnosis Office Visit 10/03/2020 9:15a [facility] Jurgen Alvarez [facility] I11.9 Hypertensive heart disease without heart failure I48.0 Paroxysmal atrial fibrillati on G45.9 Transient cerebral ischemic attack, unspecified I42.9 Cardiomyopathy, unspecified Office Visit 08/29/2020 11:30a [facility] Evelyn PittD[facility] I50.20 Unspecified systolic (congestive) heart failure J43.9 Emphysema, unspecified I11.9 Hypertensive heart disease w [facility] heart failure Office Visit 08/22/2020 11:15a [facility] Osmel Alvarez M[facility] I50.20 Unspecified systolic (congestive) heart failure Office Visit 08/15/2020 9:15a [facility] Osmel Alvarez [facility] I50.20 Unspecified systolic (congestive) heart failure I26.99 Other pulmonary embolism wit ut acute cor pulmonale Office Visit 06/08/2020 2:15p [facility] Osmel Alvarez [facility] 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 10/03/2020 [...] Alvarez M.D[facility] 08/29/2020 J43.9 Emphysema, unspecified Omsel white M.D[facility] 08/29/2020 I11.9 Hypertensive heart [...] M.D., [facility] 08/05/2020 F41.9 Anxiety disorder, unspecified Mi riri Alvarez M[facility] 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 at [facility]
--- OUTSIDE RECORDS SUMMARY | 2020-12-23 14:08 | CCD ---
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 Care Breakfast Supervisor Name Role Phone [facility], [facility] Unavailable Unavailable DELMAR ALVAREZ MD Unavailable Unavailable DELMAR ALVAREZ MD Unavailable Unavailable DELMAR ALVAREZ MD Unavailable Unavailable DELMAR ALVAREZ MD Unavailable Unavailable DELMAR ALVAREZ MD Unavailable Unavailable DELMAR ALVAREZ MD Unavailable Unavailable DELMAR ALVAREZ MD Unavailable Unavailable DELMAR ALVAREZ MD Unavailable Unavailable DELMAR ALVAREZ MD Unavailable Unavailable DELMAR ALVAREZ MD Unavailable Unavailable DELMAR ALVAREZ MD Unavailable Unavailable DELMAR ALVAREZ MD Unavailable Unavailable DELMAR ALVAREZ MD Unavailable Unavailable DELMAR ALVAREZ MD Unavailable Unavailable DELMAR ALVAREZ MD Unavailable Unavailable DELMAR ALVAREZ MD Unavailable Unavailable SHIVANI, MAQBOOL OSMEL MD Unavailable Unavailable SHIVANI, MAQBOOL OSMEL MD Unavailable Unavailable SHIVANI, MAQBOOL OSMEL MD Unavailable Unavailable SHIVANI, MAQBOOL OSMEL MD Unavailable Unavailable SHIVANI, MAQBOOL OSMEL MD Unavailable Unavailable SHIVANI, MAQBOOL OSMEL MD Unavailable Unavailable SHIVANI, MAQBOOL OSMEL MD Unavailable Unavailable SHIVANI, MAQBOOL OSMEL MD Unavailable Unavailable SHIVANI, MAQBOOL OSMEL MD Unavailable Unavailable SHIVANI, MAQBOOL OSMEL MD Unavailable Unavailable SHIVANI, MAQBOOL OSMEL MD Unavailable Unavailable SHIVANI, MAQBOOL OSMEL MD Unavailable Unavailable SHIVANI, MAQBOOL OSMEL MD Unavailable Unavailable SHIVANI, MAQBOOL OSMEL MD Unavailable Unavailable SHIVANI, MAQBOOL OSMEL MD Unavailable Unavailable SHIVANI, MAQBOOL OSMEL MD Unavailable Unavailable SHIVANI, MAQBOOL OSMEL MD Unavailable Unavailable SHIVANI, MAQBOOL OSMEL MD Unavailable Unavailable SHIVANI, MAQBOOL OSMEL MD Unavailable Unavailable SHIVANI, MAQBOOL OSMEL MD Unavailable Unavailable SHIVANI, MAQBOOL OSMEL MD Unavailable Unavailable SHIVANI, MAQBOOL OSMEL MD Unavailable Unavailable SHIVANI, MAQBOOL OSMEL MD Unavailable Unavailable SHIVANI, MAQBOOL OSMEL MD Unavailable Unavailable SHIVANI, MAQBOOL OSMEL MD Unavailable Unavailable SHIVANI, MAQBOOL OSMEL MD Unavailable Unavailable SHIVANI, MAQBOOL OSMEL MD Unavailable Unavailable SHIVANI, MAQBOOL OSMEL MD Unavailable Unavailable SHIVANI, MAQBOOL OSMEL MD Unavailable Unavailable SHIVANI, MAQBOOL OSMEL MD Unavailable Unavailable SHIVANI, MAQBOOL OSMEL MD Unavailable Unavailable SHIVANI, MAQBOOL OSMEL MD Unavailable Unavailable SHIVANI, MAQBOOL OSMEL MD Unavailable Unavailable SHIVANI, MAQBOOL OSMEL MD Unavailable Unavailable SHIVANI, MAQBOOL OSMEL MD Unavailable Unavailable SHIVANI, MAQBOOL OSMEL MD Unavailable Unavailable SHIVANI, MAQBOOL OSMEL MD Unavailable Unavailable SHIVANI, MAQBOOL OSMEL MD Unavailable Unavailable SHIVANI, MAQBOOL OSMEL MD Unavailable Unavailable SHIVANI, MAQBOOL OSMEL MD Unavailable Unavailable SHIVANI, MAQBOOL OSMEL MD Unavailable Unavailable SHIVANI, MAQBOOL OSMEL MD Unavailable Unavailable SHIVANI, MAQBOOL OSMEL MD Unavailable Unavailable SHIVANI, MAQBOOL OSMEL MD Unavailable Unavailable SHIVANI, MAQBOOL OSMEL MD Unavailable Unavailable SHIVANI, MAQBOOL OSMEL MD Unavailable Unavailable SHIVANI, MAQBOOL OSMEL MD Unavailable Unavailable SHIVANI, MAQBOOL OSMEL MD Unavailable Unavailable SHIVANI, MAQBOOL OSMEL MD Unavailable Unavailable SHIVANI, MAQBOOL OSMEL MD Unavailable Unavailable SHIVANI, MAQBOOL OSMEL MD Unavailable Unavailable SHIVANI, MAQBOOL OSMEL MD Unavailable Unavailable SHIVANI, MAQBOOL OSMEL MD Unavailable Unavailable SHIVANI, MAQBOOL OSMEL MD Unavailable Unavailable SHIVANI, MAQBOOL OSMEL MD Unavailable Unavailable SHIVANI, MAQBOOL OSMEL MD Unavailable Unavailable SHIVANI, MAQBOOL OSMEL MD Unavailable Unavailable SHIVANI, MAQBOOL OSMEL MD Unavailable Unavailable ARNOLD, P HARINDER Unavailable Unavailable ARNOLD P HARINDER Unavailable Unavailable ARNOLD, P HARINDER Unavailable Unavailable ARNOLD P HARINDER Unavailable Unavailable ARNOLD P HARINDER Unavailable Unavailable ARNOLD P HARINDER Unavailable Unavailable ARNOLD P HARINDER Unavailable Unavailable ARNOLD, P HARINDER Unavailable Unavailable ARNOLD P HARINDER Unavailable Unavailable ARNOLD, P HARINDER Unavailable Unavailable ARNOLD P HARINDER Unavailable Unavailable ARNOLD, P HARINDER Unavailable Unavailable ARNOLD, P HARINDER Unavailable Unavailable ARNOLD, P HARINDER MD Unavailable Unavailable ARNOLD, P HARINDER MD Unavailable Unavailable ARNOLD, P HARINDER Unavailable Unavailable ARNOLD, P HARINDER MD Unavailable Unavailable ARNOLD, P HARINDER Unavailable Unavailable ARNOLD P HARINDER Unavailable Unavailable ARNOLD P HARINDER Unavailable Unavailable ARNOLD, P HARINDER Unavailable Unavailable ARNOLD, P HARINDER Unavailable Unavailable ARNOLD, P HARINDER MD Unavailable Unavailable ARNOLD, P HARINDER Unavailable Unavailable ARNOLD, P HARINDER Unavailable Unavailable ARNOLD, P HARINDER Unavailable Unavailable ARNOLD, P HARINDER Unavailable Unavailable ARNOLD, P HARINDER Unavailable Unavailable ARNOLD, P HARINDER Unavailable Unavailable Saar STEEL MD Unavailable Unavailable Sara STEEL MD Unavailable Unavailable Sara STEEL MD Unavailable Unavailable Sara STEEL MD Unavailable Unavailable Sara STEEL MD Unavailable Unavailable LEIBELSPERGER, DOUG PA Unavailable Unavailable LEIBELSPERGER, DOUG PA Unavailable Unavailable LEIBELSPERGER, DOUG PA Unavailable Unavailable LEIBELSPERGER, DOUG PA Unavailable Unavailable LEIBELSPERGER, DOUG PA Unavailable Unavailable LEIBELSPERGER, DOUG PA Unavailable Unavailable LEIBELSPERGER, DOUG PA Unavailable Unavailable LEIBELSPERGER, DOUG PA Unavailable Unavailable LEIBELSPERGER, DOUG PA Unavailable Unavailable LEIBELSPERGER, DOUG PA Unavailable Unavailable LEIBELSPERGER, DOUG PA Unavailable Unavailable LEIBELSPERGER, DOUG PA Unavailable Unavailable LEIBELSPERGER, DOUG PA Unavailable Unavailable LEIBELSPERGER, DOUG PA Unavailable Unavailable LEIBELSPERGER, DOUG PA Unavailable Unavailable LEIBELSPERGER, DOUG PA Unavailable Unavailable LEIBELSPERGER, DOUG PA Unavailable Unavailable LEIBELSPERGER, DOUG PA Unavailable Unavailable LEIBELSPERGER, DOUG PA Unavailable Unavailable LEIBELSPERGER, DOUG PA Unavailable Unavailable LEIBELSPERGER, DOUG PA Unavailable Unavailable LEIBELSPERGER, DOUG PA Unavailable Unavailable LEIBELSPERGER, DOUG PA Unavailable Unavailable LEIBELSPERGER, DOUG PA Unavailable Unavailable Abiodun Maldonado MD Unavailable Unavailable Abiodun Maldonado MD Unavailable Unavailable Abiodun Maldonado MD Unavailable Unavailable Abiodun Maldonado MD Unavailable Unavailable Abiodun Maldonado MD Unavailable Unavailable Abiodun Maldonado MD Unavailable Unavailable Abiodun Maldonado MD Unavailable Unavailable Abiodun Maldonado MD Unavailable Unavailable Abiodun Maldonado MD Unavailable Unavailable Abiodun Maldonado MD Unavailable Unavailable Abiodun Maldonado MD Unavailable Unavailable Abiodun Maldonado MD Unavailable Unavailable Abiodun Maldonado MD Unavailable Unavailable Abiodun Maldonado MD Unavailable Unavailable Abiodun Maldonado MD Unavailable Unavailable Abiodun Maldonado MD Unavailable Unavailable Abiodun Maldonado MD Unavailable Unavailable Abiodun Maldonado MD Unavailable Unavailable Edison Falanga, A Evelyn DRAINLAYER Unavailable Unavailable Lucho Falanga, A Evelyn DRAINLAYER Unavailable Unavailable Lucho Falanga, A Evelyn DRAINLAYER Unavailable Unavailable Edison Falanga, A Evelyn DRAINLAYER Unavailable Unavailable Lucho Falanga, A Evelyn DRAINLAYER Unavailable Unavailable Edison Falanga, A Evelyn DRAINLAYER Unavailable Unavailable Edison Falanga, A Evelyn DRAINLAYER Unavailable Unavailable Edison Falanga, A Evelyn DRAINLAYER Unavailable Unavailable Edison Falanga, A Evelyn DRAINLAYER Unavailable Unavailable Edison Falanga, A Evelyn DRAINLAYER Unavailable Unavailable Edison Falanga, A Evelyn DRAINLAYER Unavailable Unavailable Edison Falanga, A Evelyn DRAINLAYER Unavailable Unavailable Lucho Falanga, A Evelyn DRAINLAYER Unavailable Unavailable Edison Falanga, A Evelyn DRAINLAYER Unavailable Unavailable Edison Falanga, A Evelyn DRAINLAYER Unavailable Unavailable Edison Falanga, A Evelyn DRAINLAYER Unavailable Unavailable Edison Falanga, A Evelyn DRAINLAYER Unavailable Unavailable Lucho Falanga, A Evelyn DRAINLAYER Unavailable Unavailable Edison Falanga, A Evelyn DRAINLAYER Unavailable Unavailable Edison Falanga, A Evelyn DRAINLAYER Unavailable Unavailable Edison Falanga, A Evelyn DRAINLAYER Unavailable Unavailable Lucho Falanga, A Evelyn DRAINLAYER Unavailable Unavailable Edison Falanga, A Evelyn DRAINLAYER Unavailable Unavailable Lucho Falanga, A Evelyn DRAINLAYER Unavailable Unavailable Lucho Falanga, A Evelyn DRAINLAYER Unavailable Unavailable Edison Falanga, A Evelyn DRAINLAYER Unavailable Unavailable Edison Falanga, A Evelyn DRAINLAYER Unavailable Unavailable Lucho Falanga, A Evelyn DRAINLAYER Unavailable Unavailable Lucho Falanga, A Evelyn DRAINLAYER Unavailable Unavailable Lucho Falanga, A Evelyn DRAINLAYER Unavailable Unavailable SHIVANI, MAQBOOL OSMEL MD Unavailable Unavailable SHIVANI, MAQBOOL OSMEL MD Unavailable Unavailable SHIVANI, MAQBOOL OSMEL MD Unavailable Unavailable SHIVANI, MAQBOOL OSMEL MD Unavailable Unavailable SHIVANI, MAQBOOL OSMEL MD Unavailable Unavailable SHIVANI, MAQBOOL OSMEL MD Unavailable Unavailable SHIVANI, MAQBOOL OSMEL MD Unavailable Unavailable SHIVANI, MAQBOOL OSMEL GARCIA Unavailable Unavailable SHIVANI, MAQBOOL OSMEL MD Unavailable Unavailable SHIVANI, MAQBOOL OSMEL MD Unavailable Unavailable SHIVANI, MAQBOOL OSMEL MD Unavailable Unavailable SHIVANI, MAQBOOL OSMEL MD Unavailable Unavailable SHIVANI, MAQBOOL OSMEL MD Unavailable Unavailable SHVIANI, MAQBOOL OSMEL MD Unavailable Unavailable SHIVANI, MAQBOOL OSMEL MD Unavailable Unavailable SHIVANI, MAQBOOL OSMEL MD Unavailable Unavailable SHIVANI, MAQBOOL OSMEL MD Unavailable Unavailable SHIVANI, MAQBOOL OSMEL MD Unavailable Unavailable SHIVANI, MAQBOOL OSMEL MD Unavailable Unavailable SHIVANI, MAQBOOL OSMEL MD Unavailable Unavailable SHIVANI, MAQBOOL OSMEL MD Unavailable Unavailable SHIVANI, MAQBOOL OSMEL MD Unavailable Unavailable SHIVANI, MAQBOOL OSMEL MD Unavailable Unavailable SHIVANI, MAQBOOL OSMEL MD Unavailable Unavailable SHIVANI, MAQBOOL OSMEL MD Unavailable Unavailable SHIVANI, MAQBOOL OSMEL MD Unavailable Unavailable SHIVANI, MAQBOOL OSMEL MD Unavailable Unavailable SHIVANI, MAQBOOL OSMEL MD Unavailable Unavailable SHIVANI, MAQBOOL OSMEL MD Unavailable Unavailable SHIVANI, MAQBOOL OSMEL MD Unavailable Unavailable SHIVANI, MAQBOOL OSMEL MD Unavailable Unavailable SHIVANI, MAQBOOL OSMEL MD Unavailable Unavailable SHIVANI, MAQBOOL OSMEL MD Unavailable Unavailable SHIVANI, MAQBOOL OSMEL MD Unavailable Unavailable SHIVANI, MAQBOOL OSMEL MD Unavailable Unavailable SHIVANI, MAQBOOL OSMEL MD Unavailable Unavailable SHIVANI, MAQBOOL OSMEL MD Unavailable Unavailable SHIVANI, MAQBOOL OSMEL MD Unavailable Unavailable SHIVANI, MAQBOOL OSMEL MD Unavailable Unavailable SHIVANI, MAQBOOL OSMEL MD Unavailable Unavailable SHIVANI, MAQBOOL OSMEL MD Unavailable Unavailable SHIVANI, MAQBOOL OSMEL MD Unavailable Unavailable SHIVANI, MAQBOOL OSMEL MD Unavailable Unavailable SHIVANI, MAQBOOL OSMEL MD Unavailable Unavailable SHIVANI, MAQBOOL OSMEL MD Unavailable Unavailable SHIVANI, MAQBOOL OSMEL MD Unavailable Unavailable SHIVANI, MAQBOOL OSMEL MD Unavailable Unavailable SHIVANI, MAQBOOL OSMEL MD Unavailable Unavailable SHIVANI, MAQBOOL OSMEL MD Unavailable Unavailable SHIVANI, MAQBOOL OSMEL MD Unavailable Unavailable SHIVANI, MAQBOOL OSMEL MD Unavailable Unavailable SHIVANI, MAQBOOL OSMEL MD Unavailable Unavailable SHIVANI, MAQBOOL OSMEL MD Unavailable Unavailable SHIVANI, MAQBOOL OSMEL MD Unavailable Unavailable SHIVANI, MAQBOOL OSMEL MD Unavailable Unavailable SHIVANI, MAQBOOL OSMEL MD Unavailable Unavailable SHIVANI, MAQBOOL OSMEL MD Unavailable Unavailable SHIVANI, MAQBOOL OSMEL MD Unavailable Unavailable SHIVANI, MAQBOOL OSMEL MD Unavailable Unavailable SHIVANI, MAQBOOL OSMEL MD Unavailable Unavailable SHIVANI, MAQBOOL OSMEL MD Unavailable Unavailable SHIVANI, MAQBOOL OSMEL MD Unavailable Unavailable SHIVANI, MAQBOOL OSMEL MD Unavailable Unavailable SHIVANI, MAQBOOL OSMEL MD Unavailable Unavailable SHIVANI, MAQBOOL OSMEL MD Unavailable Unavailable SHIVANI, MAQBOOL OSMEL MD Unavailable Unavailable SHIVANI, MAQBOOL OSMEL MD Unavailable Unavailable SHIVANI, MAQBOOL OSMEL MD Unavailable Unavailable SHIVANI, MAQBOOL OSMEL MD Unavailable Unavailable SHIVANI, MAQBOOL OSMEL MD Unavailable Unavailable SHIVANI, MAQBOOL OSMEL MD Unavailable Unavailable SHIVANI, MAQBOOL OSMEL MD Unavailable Unavailable SHIVANI, MAQBOOL OSMEL MD Unavailable Unavailable SHIVANI, MAQBOOL OSMEL MD Unavailable Unavailable BEL CARLISLE MD Unavailable Unavailable BEL CARLISLE MD Unavailable Unavailable BEL CARLISLE MD Unavailable Unavailable BEL CARLISLE MD Unavailable Unavailable BEL CARLISLE MD Unavailable Unavailable BEL CARLISLE MD Unavailable Unavailable BEL CARLISLE MD Unavailable Unavailable BEL CARLISLE MD Unavailable Unavailable BEL CARLISLE MD Unavailable Unavailable BEL CARLISLE MD Unavailable Unavailable BEL CARLISLE MD Unavailable Unavailable BEL CARLISLE MD Unavailable Unavailable Destini HEATH DO Unavailable [phone] IVANA, A. COBY DO Unavailable [phone] IVANA A. COBY DO Unavailable [phone] IVANA A. COBY DO Unavailable [phone] IVANA A. COBY DO Unavailable [phone] IVANA A. COBY DO Unavailable [phone] IVANA A. COBY DO Unavailable [phone] IVANA A. COBY DO Unavailable [phone] IVANA A. COBY DO Unavailable [phone] IVANA A. COBY DO Unavailable [phone] IVANA AKellen COBY DO Unavailable [phone] IVANA A. COBY DO Unavailable [phone] IVANA AKellen COBY DO Unavailable [phone] IVANA A. COBY DO Unavailable [phone] IVANA A. COBY DO Unavailable [phone] IVANA A. COBY DO Unavailable [phone] IVANA A. COBY DO Unavailable [phone] IVANA A. COBY DO Unavailable [phone] IVANA A. COBY DO Unavailable [phone] IVANA A. COBY DO Unavailable [phone] IVANA A. COBY DO Unavailable [phone] SEARS, A HUGH DO Unavailable Unavailable SEARS, A HUGH DO Unavailable Unavailable SEARS, A HUGH DO Unavailable Unavailable SEARS, A HUGH DO Unavailable Unavailable SEARS, A HUGH DO Unavailable Unavailable SEARS, A HUGH DO Unavailable Unavailable SEARS, A HUGH DO Unavailable Unavailable SEARS, A HUGH DO Unavailable Unavailable SEARS, A HUGH DO Unavailable Unavailable SEARS, A HUGH DO Unavailable Unavailable SEARS, A HUGH DO Unavailable Unavailable SEARS, A HUGH DO Unavailable Unavailable SEARS, A HUGH DO Unavailable Unavailable SEARS, A HUGH DO Unavailable Unavailable SEARS, A HUGH DO Unavailable Unavailable SEARS, A HUGH DO Unavailable Unavailable SEARS, A HUGH DO Unavailable Unavailable SEARS, A HUGH DO Unavailable Unavailable SEARS, A HUGH DO Unavailable Unavailable SEARS, A HUGH DO Unavailable Unavailable SEARS, A HUGH DO Unavailable Unavailable SEARS, A HUGH DO Unavailable Unavailable SEARS, A HUGH DO Unavailable Unavailable SEARS, A HUGH DO Unavailable Unavailable SEARS, A HUGH DO Unavailable Unavailable SEARS, A HUGH DO Unavailable Unavailable SEARS, A HUGH DO Unavailable Unavailable SEARS, A HUGH DO Unavailable Unavailable SEARS, A HUGH DO Unavailable Unavailable SEARS, A HUGH DO Unavailable Unavailable SEARS, A HUGH DO Unavailable Unavailable SEARS, A HUGH DO Unavailable Unavailable SEARS, A HUGH DO Unavailable Unavailable SEARS, A HUGH DO Unavailable Unavailable SEARS, A HUGH DO Unavailable Unavailable SEARS, A HUGH DO Unavailable Unavailable SEARS, A HUGH DO Unavailable Unavailable SEARS, A HUGH DO Unavailable Unavailable SEARS, A HUGH DO Unavailable Unavailable SEARS, A HUGH DO Unavailable Unavailable SEARS, A HUGH DO Unavailable Unavailable SEARS, A HUGH DO Unavailable Unavailable SEARS, A HUGH DO Unavailable Unavailable SEARS, A HUGH DO Unavailable Unavailable SEARS, A HUGH DO Unavailable Unavailable SEARS, A HUGH DO Unavailable Unavailable Brandon, Arlyn Schulte MD Unavailable Unavailable Brandon, Arlyn Schulte MD Unavailable Unavailable Brandon, Arlyn Schulte MD Unavailable Unavailable Brandon, Arlyn Schulte MD Unavailable Unavailable Brandon, Arlyn Schulte MD Unavailable Unavailable Brandon, Arlyn Schulte MD Unavailable Unavailable Brandon, Arlyn Schulte MD Unavailable Unavailable Brandon, Arlyn Schulte MD Unavailable Unavailable Brandon, Arlyn Schulte MD Unavailable Unavailable Brandon, Arlyn Schulte MD Unavailable Unavailable Brandon, Arlyn Schulte MD Unavailable Unavailable Brandon, Arlyn Schulte MD Unavailable Unavailable Brandon, Arlyn Schulte MD Unavailable Unavailable Brandon, Arlyn Schulte MD Unavailable Unavailable Brandon, Arlyn Schulte MD Unavailable Unavailable Brandon, Arlyn Schulte MD Unavailable Unavailable Brandon, Arlyn Schulte MD Unavailable Unavailable Brandon, Arlyn Schulte MD Unavailable Unavailable Brandon, Arlyn Schulte MD Unavailable Unavailable Brandon, Arlyn Schulte MD Unavailable Unavailable Brandon, Arlyn Schulte MD Unavailable Unavailable Brandon, Arlyn Schulte MD Unavailable Unavailable Brandon, Arlyn Schulte MD Unavailable Unavailable Brandon, Arlyn Schulte MD Unavailable Unavailable Brandon, Arlyn Schulte MD Unavailable Unavailable Brandon, Arlyn Schulte MD Unavailable Unavailable Brandon, Arlyn Schulte MD Unavailable Unavailable Brandon, Arlyn Schulte MD Unavailable Unavailable Brandon, Arlyn Schulte MD Unavailable Unavailable Brandon, Arlyn Schulte MD Unavailable Unavailable Brandon, Arlyn Schulte MD Unavailable Unavailable Brandon, Arlyn Schulte MD Unavailable Unavailable Brandon, Arlyn Schulte MD Unavailable Unavailable Brandon, Arlyn Schulte MD Unavailable Unavailable Brandon, Arlyn Schulte MD Unavailable Unavailable Brandon, Arlyn Schulte MD Unavailable Unavailable Brandon, Arlyn Schulte MD Unavailable Unavailable Brandon, Arlyn Schulte MD Unavailable Unavailable Brandon, Arlyn Schulte MD Unavailable Unavailable Brandon, Arlyn Schulte MD Unavailable Unavailable Brandon, Arlyn Schulte MD Unavailable Unavailable Brandon, Arlyn Schulte MD Unavailable Unavailable Brandon, Arlyn Schulte MD Unavailable Unavailable Brandon, Arlyn Schulte MD Unavailable Unavailable Brandon, Arlyn Schulte MD Unavailable Unavailable Brandon, Arlyn Schulte MD Unavailable Unavailable Brandon, Arlyn Schulte MD Unavailable Unavailable Brandon, Arlyn Schulte MD Unavailable Unavailable Brandon, Arlyn Schulte MD Unavailable Unavailable Brandon, Arlyn Schulte MD Unavailable Unavailable Brandon, Arlyn Schulte MD Unavailable Unavailable Brandon, Arlyn Schulte MD Unavailable Unavailable Brandon, Arlyn Schulte MD Unavailable Unavailable Brandon, Arlyn Schulte MD Unavailable Unavailable Brandon, Arlyn Schulte MD Unavailable Unavailable Brandon, Arlyn Schulte MD Unavailable Unavailable Brandon, Arlyn Schulte MD Unavailable Unavailable Brandon, Arlyn Schulte MD Unavailable Unavailable Brandon, Arlyn Schulte MD Unavailable Unavailable Brandon, Arlyn Schulte MD Unavailable Unavailable Brandon, Arlyn Schulte MD Unavailable Unavailable Brandon, Arlyn Schulte MD Unavailable Unavailable Brandon, Arlyn Schulte MD Unavailable Unavailable Brandon, Arlyn Schulte MD Unavailable Unavailable Brandon, Arlyn Schulte MD Unavailable Unavailable Brandon, Arlyn Schulte MD Unavailable Unavailable Brandon, Arlyn Schulte MD Unavailable Unavailable Brandon, Arlyn Schulte MD Unavailable Unavailable Brandon, Arlyn Schulte MD Unavailable Unavailable Brandon, Arlyn Schulte MD Unavailable Unavailable Brandon, Arlyn Schulte MD Unavailable Unavailable Brandon, Arlyn Schulte MD Unavailable Unavailable Brandon, Arlyn Schulte MD Unavailable Unavailable Brandon, Arlyn Schulte MD Unavailable Unavailable SEARS, A HUGH DO Unavailable Unavailable SEARS, A HUGH DO Unavailable Unavailable SEARS, A HUGH DO Unavailable Unavailable SEARS, A HUGH DO Unavailable Unavailable SEARS, A HUGH DO Unavailable Unavailable SEARS, A HUGH DO Unavailable Unavailable SEARS, A HUGH DO Unavailable Unavailable SEARS, A HUGH DO Unavailable Unavailable SEARS, A HGUH DO Unavailable Unavailable SEARS, A HUGH DO Unavailable Unavailable SEARS, A HUGH DO Unavailable Unavailable SEARS, A HUGH DO Unavailable Unavailable SEARS, A HUGH DO Unavailable Unavailable SEARS, A HUGH DO Unavailable Unavailable SEARS, A HUGH DO Unavailable Unavailable SEARS, A HUGH DO Unavailable Unavailable SEARS, A HUGH DO Unavailable Unavailable SEARS, A HUGH DO Unavailable Unavailable SEARS, A HUGH DO Unavailable Unavailable SEARS, A HUGH DO Unavailable Unavailable SEARS, A HUGH DO Unavailable Unavailable SEARS, A HUGH DO Unavailable Unavailable SEARS, A HUGH DO Unavailable Unavailable SEARS, A HUGH DO Unavailable Unavailable SEARS, A HUGH DO Unavailable Unavailable SEARS, A HUGH DO Unavailable Unavailable SEARS, A HUGH DO Unavailable Unavailable SEARS, A HUGH DO Unavailable Unavailable SEARS, A HUGH DO Unavailable Unavailable SEARS, A HUGH DO Unavailable Unavailable SEARS, A HUGH DO Unavailable Unavailable SEARS, A HUGH DO Unavailable Unavailable SEARS, A HUGH DO Unavailable Unavailable SEARS, A HUGH DO Unavailable Unavailable SEARS, A HUGH DO Unavailable Unavailable SEARS, A HUGH DO Unavailable Unavailable SEARS, A HUGH DO Unavailable Unavailable SEARS, A HUGH DO Unavailable Unavailable SEARS, A HUGH DO Unavailable Unavailable SEARS, A HUGH DO Unavailable Unavailable SEARS, A HUGH DO Unavailable Unavailable SEARS, A HUGH DO Unavailable Unavailable SEARS, A HUGH DO Unavailable Unavailable SEARS, A HUGH DO Unavailable Unavailable SEARS, A HUGH DO Unavailable Unavailable SEARS, A HUGH DO Unavailable Unavailable Quinton, Walter Gomez MD Unavailable Unavailable DeBlasio, Walter Gomez MD Unavailable Unavailable DeBlasio, Walter Gomez MD Unavailable Unavailable DeBlasio, Walter Gomez MD Unavailable Unavailable DeBlasio, Walter Gomez MD Unavailable Unavailable DeBlasio, Walter Gomez MD Unavailable Unavailable DeBlasio, Walter Jason MD Unavailable Unavailable DeBlasioWalter MD Unavailable Unavailable DeBlasioWalter MD Unavailable Unavailable DeBlasio, Walter Gomez MD Unavailable Unavailable DeBlasio, Walter Gomez MD Unavailable Unavailable DeBlasio, Walter Gomez MD Unavailable Unavailable DeBlasioWalter MD Unavailable Unavailable DeBsheronioWlater MD Unavailable Unavailable DeBlasioWalter MD Unavailable Unavailable DeBlasioWalter MD Unavailable Unavailable DeBlasio, Walter Gomez MD Unavailable Unavailable DeBlasio, Walter Gomez MD Unavailable Unavailable DeBlasio, Walter Gomez MD Unavailable Unavailable DeBlasioWalter MD Unavailable Unavailable DeBlasio, Walter Gomez MD Unavailable Unavailable DeBlasio, Walter Gomez MD Unavailable Unavailable DeBlasio, Walter Gomez MD Unavailable Unavailable DeBlasio, Walter Gomez MD Unavailable Unavailable DeBlasio, Walter Gomez MD Unavailable Unavailable DeBlasioWalter MD Unavailable Unavailable DeBsheronioWalter MD Unavailable Unavailable DeBlasioWalter MD Unavailable Unavailable DeBlasio, Walter Gomez MD Unavailable Unavailable DeBlasioWalter MD Unavailable Unavailable DeBlasioWalter MD Unavailable Unavailable DeBlasioWalter MD Unavailable Unavailable DeBlasioWalter MD Unavailable Unavailable DeBlasioWalter MD Unavailable Unavailable DeBlasioWalter MD Unavailable Unavailable DeBlasioWalter MD Unavailable Unavailable DeBsheronioWalter MD Unavailable Unavailable DeBlasioWalter MD Unavailable Unavailable DeBsheronioWalter MD Unavailable Unavailable DeBlasioWalter MD Unavailable Unavailable DeBsheronioWalter MD Unavailable Unavailable DeBlasioWalter MD Unavailable Unavailable DeBsheronioWalter MD Unavailable Unavailable DeBlasioWalter MD Unavailable Unavailable DeBWalter ma MD Unavailable Unavailable DeBWalter ma MD Unavailable Unavailable DeBWalter ma MD Unavailable Unavailable DeBsheronioWalter MD Unavailable Unavailable DeBlasio, Walter Gomez MD Unavailable Unavailable DeBsheronio, Walter Gomez MD Unavailable Unavailable DeBsheronioWalter MD Unavailable Unavailable DeBWalter ma MD Unavailable Unavailable DeBWalter ma MD Unavailable Unavailable DeBsheronioWalter MD Unavailable Unavailable DeBlasio, Walter Gomez MD Unavailable Unavailable DeBlasio, Walter Gomez MD Unavailable Unavailable DeBlasio, aWlter Jason MD Unavailable Unavailable Walter Alcantara MD Unavailable Unavailable Walter Alcantara MD Unavailable Unavailable Walter Alcantara MD Unavailable Unavailable Walter Alcantara MD Unavailable Unavailable Walter Alcantara MD Unavailable Unavailable Walter Alcantara MD Unavailable Unavailable Walter Alcantara MD Unavailable Unavailable Walter Alcantara MD Unavailable Unavailable Walter Alcantara MD Unavailable Unavailable Walter Alcantara MD Unavailable Unavailable Walter Alcantara MD Unavailable Unavailable Walter Alcantara MD Unavailable Unavailable Walter Alcantara MD Unavailable Unavailable Walter Alcantara MD Unavailable Unavailable Walter Alcantara MD Unavailable Unavailable Walter Alcantara MD Unavailable Unavailable Walter Alcantara MD Unavailable Unavailable MELANY, [id number] K. WAJEEHA DO Unavailable Unavail able MELANY, [id number] K. WAJEEHA DO Unavailable Unavail able MELANY, [id number] K. WAJEEHA DO Unavailable Unavail able MELANY, [id number] K. WAJEEHA DO Unavailable Unavail able MELANY, [id number] K. WAJEEHA DO Unavailable Unavail able TURRIN, MARIA T Unavailable Unavailable TURRIN, MARIA T Unavailable Unavailable TURRIN, MARIA T Unavailable Unavailable TURRIN, MARIA T Unavailable Unavailable Valeria, J Darwin PA-C Unavailable Unavailable Valeria, J Darwin PA-C Unavailable Unavailable Valeria, J Darwin PA-C Unavailable Unavailable Valeria, J Darwin PA-C Unavailable Unavailable Valeria, J Darwin PA-C Unavailable Unavailable Valeria, J Darwin PA-C Unavailable Unavailable Valeria, J Darwin PA-C Unavailable Unavailable Valeria, J Darwin PA-C Unavailable Unavailable Valeria, J Darwin PA-C Unavailable Unavailable Valeria, J Darwin PA-C Unavailable Unavailable Valeria, J Darwin PA-C Unavailable Unavailable Autumn FLORES MD Unavailable Unavailable Autumn FLORES MD Unavailable Unavailable Autumn FLORES MD Unavailable Unavailable Autumn FLORES MD Unavailable Unavailable Autumn FLORES MD Unavailable Unavailable Autumn FLORES MD Unavailable Unavailable Autumn FLORES MD Unavailable Unavailable Autumn FLORES MD Unavailable Unavailable PARNES, Z ROXIE MD Unavailable Unavailable PARNES, Z ROXIE MD Unavailable Unavailable PARNES, Z ROXIE MD Unavailable Unavailable PARNES, Z ROXIE MD Unavailable Unavailable PARNES, Z ROXIE MD Unavailable Unavailable PARNES, Z ROXIE MD Unavailable Unavailable PARNES, Z ROXIE MD Unavailable Unavailable PARNES, Z ROXIE MD Unavailable Unavailable PARNES, Z ROXIE MD Unavailable Unavailable PARNES, Z ROXIE MD Unavailable Unavailable PARNES, Z ROXIE MD Unavailable Unavailable PARNES, Z ROXIE MD Unavailable Unavailable PARNES, Z ROXIE MD Unavailable Unavailable PARNES, Z ROXIE MD Unavailable Unavailable PARNES, Z ROXIE MD Unavailable Unavailable PARNES, Z ROXIE MD Unavailable Unavailable PARNES, Z ROXIE MD Unavailable Unavailable PARNES, Z ROXIE MD Unavailable Unavailable PARNES, Z ROXIE MD Unavailable Unavailable PARNES, Z ROXIE MD Unavailable Unavailable PARNES, Z ROXIE MD Unavailable Unavailable PARNES, Z ROXIE MD Unavailable Unavailable PARNES, Z ROXIE MD Unavailable Unavailable PARNES, Z ROXIE MD Unavailable Unavailable PARNES, Z ROXIE MD Unavailable Unavailable PARNES, Z ROXIE MD Unavailable Unavailable PARNES, Z ROXIE MD Unavailable Unavailable PARNES, Z ROXIE MD Unavailable Unavailable PARNES, Z ROXIE MD Unavailable Unavailable PARNES, Z ROXIE MD Unavailable Unavailable Regine, H Gail PRODUCT DEVELOPMENT CONSULTANT Unavailable Unavailable Ergine, H Gail PRODUCT DEVELOPMENT CONSULTANT Unavailable Unavailable Regine, H Gail PRODUCT DEVELOPMENT CONSULTANT Unavailable Unavailable Regine, H Gail PRODUCT DEVELOPMENT CONSULTANT Unavailable Unavailable Regine, H Gail PRODUCT DEVELOPMENT CONSULTANT Unavailable Unavailable Regine, H Gail PRODUCT DEVELOPMENT CONSULTANT Unavailable Unavailable Regine, H Gail PRODUCT DEVELOPMENT CONSULTANT Unavailable Unavailable Regine, H Gail PRODUCT DEVELOPMENT CONSULTANT Unavailable Unavailable Regine, H Gail PRODUCT DEVELOPMENT CONSULTANT Unavailable Unavailable Regine, H Gail PRODUCT DEVELOPMENT CONSULTANT Unavailable Unavailable Regine, H Gail PRODUCT DEVELOPMENT CONSULTANT Unavailable Unavailable Regine, H Gail PRODUCT DEVELOPMENT CONSULTANT Unavailable Unavailable Regine, H Gail PRODUCT DEVELOPMENT CONSULTANT Unavailable Unavailable Regine, H Gail PRODUCT DEVELOPMENT CONSULTANT Unavailable Unavailable Regine, H Gail PRODUCT DEVELOPMENT CONSULTANT Unavailable Unavailable Regine, H Gail PRODUCT DEVELOPMENT CONSULTANT Unavailable Unavailable Regine, H Gail PRODUCT DEVELOPMENT CONSULTANT Unavailable Unavailable Regine, H Gail PRODUCT DEVELOPMENT CONSULTANT Unavailable Unavailable Regine, H Gail PRODUCT DEVELOPMENT CONSULTANT Unavailable Unavailable Regine, H Gail PRODUCT DEVELOPMENT CONSULTANT Unavailable Unavailable Regine, H Gail PRODUCT DEVELOPMENT CONSULTANT Unavailable Unavailable Regine, H Gail PRODUCT DEVELOPMENT CONSULTANT Unavailable Unavailable Regine, H Gail PRODUCT DEVELOPMENT CONSULTANT Unavailable Unavailable Regine, H Gail PRODUCT DEVELOPMENT CONSULTANT Unavailable Unavailable Regine, H Gail PRODUCT DEVELOPMENT CONSULTANT Unavailable Unavailable Regine, H Gail PRODUCT DEVELOPMENT CONSULTANT Unavailable Unavailable Regine, H Gail PRODUCT DEVELOPMENT CONSULTANT Unavailable Unavailable Regine, H Gial PRODUCT DEVELOPMENT CONSULTANT Unavailable Unavailable Regine, H Gail PRODUCT DEVELOPMENT CONSULTANT Unavailable Unavailable Regine, H Gail PRODUCT DEVELOPMENT CONSULTANT Unavailable Unavailable Regine, H Gail PRODUCT DEVELOPMENT CONSULTANT Unavailable Unavailable Regine, H Gail PRODUCT DEVELOPMENT CONSULTANT Unavailable Unavailable Regine, H Gail PRODUCT DEVELOPMENT CONSULTANT Unavailable Unavailable Regine, H Gail PRODUCT DEVELOPMENT CONSULTANT Unavailable Unavailable Regine, H Gail PRODUCT DEVELOPMENT CONSULTANT Unavailable Unavailable Regine, H Gali PRODUCT DEVELOPMENT CONSULTANT Unavailable Unavailable Regine, H Gail PRODUCT DEVELOPMENT CONSULTANT Unavailable Unavailable Regine, H Gail PRODUCT DEVELOPMENT CONSULTANT Unavailable Unavailable Regine, H Gail PRODUCT DEVELOPMENT CONSULTANT Unavailable Unavailable Regine, H Gail PRODUCT DEVELOPMENT CONSULTANT Unavailable Unavailable Regine, H Gail PRODUCT DEVELOPMENT CONSULTANT Unavailable Unavailable Regine, H Gail PRODUCT DEVELOPMENT CONSULTANT Unavailable Unavailable Regine, H Gail PRODUCT DEVELOPMENT CONSULTANT Unavailable Unavailable Regine, H Gail PRODUCT DEVELOPMENT CONSULTANT Unavailable Unavailable Regine, H Gail PRODUCT DEVELOPMENT CONSULTANT Unavailable Unavailable Regine, H Gail PRODUCT DEVELOPMENT CONSULTANT Unavailable Unavailable Regine, H Gail PRODUCT DEVELOPMENT CONSULTANT Unavailable Unavailable Regine, H Gail PRODUCT DEVELOPMENT CONSULTANT Unavailable Unavailable Regine, H Gail PRODUCT DEVELOPMENT CONSULTANT Unavailable Unavailable Regine, H Gail PRODUCT DEVELOPMENT CONSULTANT Unavailable Unavailable Regine, H Gail PRODUCT DEVELOPMENT CONSULTANT Unavailable Unavailable Regine, H Gail PRODUCT DEVELOPMENT CONSULTANT Unavailable Unavailable Regine, H Gail PRODUCT DEVELOPMENT CONSULTANT Unavailable Unavailable Regine, H Gail PRODUCT DEVELOPMENT CONSULTANT Unavailable Unavailable Regine, H Gail PRODUCT DEVELOPMENT CONSULTANT Unavailable Unavailable Regine, H Gail PRODUCT DEVELOPMENT CONSULTANT Unavailable Unavailable Regine, H Gail PRODUCT DEVELOPMENT CONSULTANT Unavailable Unavailable Ruddy JUNIOR MD Unavailable Unavailable SANDIRuddy FRYE MD Unavailable Unavailable Ruddy JUNIOR MD Unavailable Unavailable SANDIRuddy FRYE MD Unavailable Unavailable Ruddy JUNIOR MD Unavailable Unavailable SANDIRuddy FRYE MD Unavailable Unavailable SANDIRuddy FRYE MD Unavailable Unavailable Ruddy JUNIOR MD Unavailable Unavailable SANDIRuddy FRYE MD Unavailable Unavailable SANDIRuddy FRYE MD Unavailable Unavailable SANDIRuddy FRYE MD Unavailable Unavailable SANDIRuddy FRYE MD Unavailable Unavailable SANDIRuddy FRYE MD Unavailable Unavailable SANDIRuddy FRYE MD Unavailable Unavailable SANDIRuddy FRYE MD Unavailable Unavailable SANDIRuddy FRYE MD Unavailable Unavailable SANDIRuddy FRYE MD Unavailable Unavailable SANDIRuddy FRYE MD Unavailable Unavailable SANDIRuddy FRYE MD Unavailable Unavailable SANDIRuddy FRYE MD Unavailable Unavailable SANIDRuddy FRYE MD Unavailable Unavailable SANDIRuddy FRYE MD Unavailable Unavailable SANDIRuddy FRYE MD Unavailable Unavailable QuezadaKeara smalls PA Unavailable Unavailable QuezadaKeara smalls PA Unavailable Unavailable QuezadaKeara PA Unavailable Unavailable QuezadaKeara PA Unavailable Unavailable QuezadaKeara PA Unavailable Unavailable QuezadaKeara PA Unavailable Unavailable QuezadaKeara PA Unavailable Unavailable Quezada, Keara Amaral PA Unavailable Unavailable Quezada, Keara Amaral PA Unavailable Unavailable Quezada, Keara Amaral PA Unavailable Unavailable CHAU, F TADEO DO Unavailable Unavailable CHAU, F TADEO DO Unavailable Unavailable CHAU, F TADEO DO Unavailable Unavailable CHAU, F TADEO DO Unavailable Unavailable CHAU, F TADEO DO Unavailable Unavailable CHAU, F TADEO DO Unavailable Unavailable CHAU, F TADEO DO Unavailable Unavailable CHAU, F TADEO DO Unavailable Unavailable CHAU, F TADEO DO Unavailable Unavailable CHAU, F TADEO DO Unavailable Unavailable CHAU, F TADEO DO Unavailable Unavailable CHAU, F TADEO DO Unavailable Unavailable CHAU, F TADEO DO Unavailable Unavailable CHAU, F TADEO DO Unavailable Unavailable CHAU, F TADEO DO Unavailable Unavailable CHAU, F TADEO DO Unavailable Unavailable CHAU, F TADEO DO Unavailable Unavailable CHAU, F TADEO DO Unavailable Unavailable CHAU, F TADEO DO Unavailable Unavailable CHAU, F TADEO DO Unavailable Unavailable CHAU, F TADEO DO Unavailable Unavailable CHAU, F TADEO DO Unavailable Unavailable CHAU, F TADEO DO Unavailable Unavailable CHAU, F TADEO DO Unavailable Unavailable CHAU, F TADEO DO Unavailable Unavailable CHAU, F TADEO DO Unavailable Unavailable CHAU, F TADEO DO Unavailable Unavailable CHAU, F TADEO DO Unavailable Unavailable CHAU, F TADEO DO Unavailable Unavailable CHAU, F TADEO DO Unavailable Unavailable CHAU, F TADEO DO Unavailable Unavailable CHAU, F TADEO DO Unavailable Unavailable Regine, H Gail PRODUCT DEVELOPMENT CONSULTANT Unavailable Unavailable Regine, H Gail PRODUCT DEVELOPMENT CONSULTANT Unavailable Unavailable Regine, H Gail PRODUCT DEVELOPMENT CONSULTANT Unavailable Unavailable Regine, H Gail PRODUCT DEVELOPMENT CONSULTANT Unavailable Unavailable Regine, H Gail PRODUCT DEVELOPMENT CONSULTANT Unavailable Unavailable Regine, H Gail PRODUCT DEVELOPMENT CONSULTANT Unavailable Unavailable Regine, H Gail PRODUCT DEVELOPMENT CONSULTANT Unavailable Unavailable Regine, H Gail PRODUCT DEVELOPMENT CONSULTANT Unavailable Unavailable Regine, H Gail PRODUCT DEVELOPMENT CONSULTANT Unavailable Unavailable Regine, H Gail PRODUCT DEVELOPMENT CONSULTANT Unavailable Unavailable Regine, H Gail PRODUCT DEVELOPMENT CONSULTANT Unavailable Unavailable Regine, H Gail PRODUCT DEVELOPMENT CONSULTANT Unavailable Unavailable Regine, H Gail PRODUCT DEVELOPMENT CONSULTANT Unavailable Unavailable Regine, H Gail PRODUCT DEVELOPMENT CONSULTANT Unavailable Unavailable Regine, H Gail PRODUCT DEVELOPMENT CONSULTANT Unavailable Unavailable Regine, H Gail PRODUCT DEVELOPMENT CONSULTANT Unavailable Unavailable Regine, H Gail PRODUCT DEVELOPMENT CONSULTANT Unavailable Unavailable Regine, H Gail PRODUCT DEVELOPMENT CONSULTANT Unavailable Unavailable Regine, H Gail PRODUCT DEVELOPMENT CONSULTANT Unavailable Unavailable Regine, H Gail PRODUCT DEVELOPMENT CONSULTANT Unavailable Unavailable Regine, H Gail PRODUCT DEVELOPMENT CONSULTANT Unavailable Unavailable Regine, H Gail PRODUCT DEVELOPMENT CONSULTANT Unavailable Unavailable Regine, H Gail PRODUCT DEVELOPMENT CONSULTANT Unavailable Unavailable Regine, H Gail PRODUCT DEVELOPMENT CONSULTANT Unavailable Unavailable Regine, H Gail PRODUCT DEVELOPMENT CONSULTANT Unavailable Unavailable Regine, H Gail PRODUCT DEVELOPMENT CONSULTANT Unavailable Unavailable Regine, H Gail PRODUCT DEVELOPMENT CONSULTANT Unavailable Unavailable Regine, H Gail PRODUCT DEVELOPMENT CONSULTANT Unavailable Unavailable Regine, H Gail PRODUCT DEVELOPMENT CONSULTANT Unavailable Unavailable Regine, H Gail PRODUCT DEVELOPMENT CONSULTANT Unavailable Unavailable Regine, H Gail PRODUCT DEVELOPMENT CONSULTANT Unavailable Unavailable Regine, H Gail PRODUCT DEVELOPMENT CONSULTANT Unavailable Unavailable Regine, H Gail PRODUCT DEVELOPMENT CONSULTANT Unavailable Unavailable Regine, H Gail PRODUCT DEVELOPMENT CONSULTANT Unavailable Unavailable Regine, H Gail PRODUCT DEVELOPMENT CONSULTANT Unavailable Unavailable Regine, H Gail PRODUCT DEVELOPMENT CONSULTANT Unavailable Unavailable Regine, H Gail PRODUCT DEVELOPMENT CONSULTANT Unavailable Unavailable Regine, H Gail PRODUCT DEVELOPMENT CONSULTANT Unavailable Unavailable Regine, H Gail PRODUCT DEVELOPMENT CONSULTANT Unavailable Unavailable Regine, H Gail PRODUCT DEVELOPMENT CONSULTANT Unavailable Unavailable Regine, H Gail PRODUCT DEVELOPMENT CONSULTANT Unavailable Unavailable Regine, H Gail PRODUCT DEVELOPMENT CONSULTANT Unavailable Unavailable Regine, H Gail PRODUCT DEVELOPMENT CONSULTANT Unavailable Unavailable Regine, H Gail PRODUCT DEVELOPMENT CONSULTANT Unavailable Unavailable Regine, H Gail PRODUCT DEVELOPMENT CONSULTANT Unavailable Unavailable Regine, H Agil PRODUCT DEVELOPMENT CONSULTANT Unavailable Unavailable Regine, H Gail PRODUCT DEVELOPMENT CONSULTANT Unavailable Unavailable Regine, H Gail PRODUCT DEVELOPMENT CONSULTANT Unavailable Unavailable Regine, H Gail PRODUCT DEVELOPMENT CONSULTANT Unavailable Unavailable Regine, H Gail PRODUCT DEVELOPMENT CONSULTANT Unavailable Unavailable Regine, H Gail PRODUCT DEVELOPMENT CONSULTANT Unavailable Unavailable Regine, H Gail PRODUCT DEVELOPMENT CONSULTANT Unavailable Unavailable Regine, H Gail PRODUCT DEVELOPMENT CONSULTANT Unavailable Unavailable Regine, H Gail PRODUCT DEVELOPMENT CONSULTANT Unavailable Unavailable Regine, H Gail PRODUCT DEVELOPMENT CONSULTANT Unavailable Unavailable Regine, H Gail PRODUCT DEVELOPMENT CONSULTANT Unavailable Unavailable Regine, H Gail PRODUCT DEVELOPMENT CONSULTANT Unavailable Unavailable Re-disclosure Warning The records that you are about to access may contain information from federally-assisted alcohol or drug abuse programs. If such information is present, then the following federally mandated warning applies: This information has been disclosed to you from records protected by federal confidentiality rules (42 CFR part 2). The federal rules prohibit you from making any further disclosure of this information unless further disclosure is expressly permitted by the written consent of the person to whom it pertains or as otherwise permitted by 42 CFR part 2. A general authorization for the release of medical or other information is NOT sufficient for this purpose. The Federal rules restrict any use of the information to criminally investigate or prosecute any alcohol or drug abuse patient.The records that you are about to access may contain highly sensitive health information, the redisclosure of which is protected by Article 27-F of the [place] Public Health law. If you continue you may have access to information: Regarding HIV / AIDS; Provided by facilities licensed or operated by the [place] Office of Mental Health; or Provided by the [place] Office for People With Developmental Disabilities. If such information is present, then the following [place] [facility] mandated warning applies: This information has been disclosed to you from confidential records which are protected by state law. State law prohibits you from making any further disclosure of this information without the specific written consent of the person to whom it pertains, or as otherwise permitted by law. Any unauthorized further disclosure in violation of state law may result in a fine or prison sentence or both. A general authorization for the release of medical or other information is NOT sufficient authorization for further disc losure. Allergies and Adverse Reactions Type Description Substance Reaction Status Data Source(s ) Food allergy SEAFOOD SEAFOOD ANAPHYLAXIS HIVES [facility] CLASS PENICILLINS (CLASS) PENICILLINS (CLASS) RASH [facility] Drug allergy Penicillins Penicillin Rash [facility] sea food sea food Anaphylaxis SV [facility] Family History Family Member Name Family Member Gender Family Member Status Date o f Status Description Data Source(s) Unknown Male Problem [facility] ([facility]) () - age 49 Unknown Unknown Problem [facility] ([facility]) Unknown Unknown Problem [facility] ([facility] Unknown Unknown Problem [facility] ([facility] Encounters Encounter Providers Location Date Indications Data Source(s ) Outpatient Attender: [facility] 12/20/2020 01:3 9:00 PM [facility] Inpatient Attender: OSMEL ALVAREZ MDAtt jose alfredo: MARIA T GALLOWAYConsultant: Gail Reyes NP 12/20/2020 01:00:00 PM [facility] - 12/23/2020 12:15:00 PM [facility] Patient discharged. Outpatient Attender: [id number] DAYSI MOSLEY DOConsultant : Gail Reyes NP 12/08/2020 12:28:00 PM [facility] - 12/08/2020 01:28:00 PM [facility] Outpatient Attender: Gail Jeffrieseferrer: Gail Reyes NP 12/04/2020 10:49:00 AM [facility] - 12/04/2020 01:30:00 PM [facility] Inpatient Attender: Evelyn KELLYPAttender: Darwin LOPEZ- CConsultant: Gail Reyes PRODUCT DEVELOPMENT CONSULTANT 11/24/2020 02:59:00 PM EST - 11/28/2020 02:30:00 PM EST [facility] Patient discharged. Outpatient Attender: [facility] 11/24/2020 11:1 5:00 AM EST [facility] Outpatient Attender: Cristin barry 11/10/2020 03:00:00 PM EST [facility] ([facility]) Outpatient Attender: OSMEL ALVAREZ MD [facility] 11/07 09:45:00 AM EST [facility] ([facility]) Outpatient Attender: [id number] JOSE ROBERTOHERMILA CORDOVADHU DOConsultant : Gail Reyes PRODUCT DEVELOPMENT CONSULTANT 10/12/2020 08:53:00 AM EST - 10/12/2020 09:53:00 AM EST [facility] Patient discharged. Outpatient<td ID="encounterTypeDescripti onID0">TRIAGE NON URGENT</td><td>Coby Heath DO</td><td>Cesar Hadley MD [facility]</td><td>10/05/2020</td><td>9:19AM</td><td>10:07AM</td><td><content ID="encounterDiagnosisID0-0">Transient Ischemic Attack (Tia)</content></td> Attender: COBY Lawler MD [facility] 10/05/2020 09:19:00 AM EST - 10/05/2020 10:07:00 AM EST Transient Ischemic Attack (Tia) CJ (Cesar Barrow MD [facility]) Transient Ischemic Attack (Tia) Outpatient Attender: OSMEL ALVAREZ MD [facility] 10/03 08:15:00 AM EST [facility] ([facility]) Outpatient Attender: OSMEL Jacobs jose alfredo: BEL CARLISLE MDConsultant: Gail Reyes PRODUCT DEVELOPMENT CONSULTANT 09/27/2020 05:50:00 PM EST - 09/28/2020 02:54:00 PM EST [facility] Patient discharged. Outpatient Attender: HARINDER STEEL MDConsultant: Gail Garces NP 09/05/2020 12:32:00 PM EST - 09/05/2020 01:32:00 PM EST [facility] Outpatient Attender: OSMEL ALVAREZ MD [facility] 08/29 11:30:00 AM EDT [facility] ([facility]) Outpatient Attender: HARINDER STEEL MDConsultant: Gail Garces NP 08/29/2020 09:44:00 AM EDT - 08/29/2020 10:44:00 AM EDT [facility] Outpatient Attender: OSMEL ALVAREZ MD [facility] 08/22 11:15:00 AM EDT [facility] ([facility]) Outpatient Attender: OSMEL ALVAREZ MDAtt jose alfredo: ROXIE FLORES MDConsultant: Gail Reyes NP 08/15/2020 10:38:00 AM EDT - 08/15/2020 11:38:00 AM EDT [facility] Outpatient Attender: OSMEL ALVAREZ MD [facility] 08/15 09:15:00 AM EDT [facility] ([facility]) Inpatient Attender: OSMEL Jacobs jose alfredo: SHAUNA JUNIOR MDConsultant: Gail Reyes NP 08/05/2020 08:23:00 PM EDT - 08/07/2020 11:37:00 AM EDT [facility] Patient discharged. Outpatient Attender: HARINDER STEEL MDConsultant: Gail Garces NP 08/01/2020 11:12:00 AM EDT - 08/01/2020 12:12:00 PM EDT [facility] Outpatient<td ID="encounterTypeDescripti onID1">8 Month Follow-Up</td><td>Coby Heath DO</td><td>Cesar Hadley MD [facility]</td><td>06/15/2020</td><td>12:55PM</td><td>1:49PM</td><td><content ID="encounterDiagnosisID1-0">Dry Eye Syndrome</content>, <content ID="encounterDiagnosisID1-1">Borderline Glaucoma Open Angle with Borderline Findings Both Eyes</content>, <content ID="encounterDiagnosisID1-2">Vitreous Disorders Degeneration</content>, <content ID="encounterDiagnosisID1-3">Cataract Senile Nuclear</content></td> Attender: COYB Lawler MD [facility] 06/15/2020 12:55:00 PM EDT - 06/15/2020 01:49:00 PM ED T Cataract Senile NuclearCataract Senile NuclearDry Eye SyndromeDry Eye SyndromeVitreous Disorders DegenerationBorderline Glaucoma Open Angle with Borderline Findings Both EyesVitreous Disorders DegenerationBorderline Glaucoma Open Angle with Borderline Findings Both Eyes CJ (Cesar Barrow MD [facility]) Cataract Senile Nuclear Cataract Senile Nuclear Dry Eye Syndrome Dry Eye Syndrome Vitreous Disorders Degeneration 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 Findings Both Eyes Vitreous Disorders Degeneration 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 Findings Both Eyes Outpatient Attender: OSMEL ALVAREZ MD [facility] 06/08 02:15:00 PM EDT [facility] (Osmel Alvarez MD) Outpatient<td ID="encounterTypeDescripti onID3">OCT DISC</td><td></td><td>Cesar Hadley MD [facility]</td><td>06/07/2020</td><td>8:14AM</td><td>9:48AM</td><td></td> Cesar Hadley MD [facility] 06/07/2020 08:14:00 AM EDT - 06/07/2020 09:48:00 AM EDT CJ (Cesar Barrow MD [facility]) Outpatient<td ID="encounterTypeDescripti onID2">TESTING - VISUAL FIELD & OCT</td><td>Coby Heath DO</td><td>Cesar Hadley MD [facility]</td><td>06/07/2020</td><td>8:14AM</td><td>9:48AM</td><td><content ID="encounterDiagnosisID2-0">Borderline Glaucoma Open Angle with Borderline Findings Both Eyes</content></td> Attender: COBY Shipman MD [facility] 06/07/2020 08:14:00 AM EDT - 06/07/2020 09:48:00 AM ED T Borderline Glaucoma Open Angle with Borderline Findings Both EyesBorderline Glaucoma Open Angle with Borderline Findings Both Eyes CJ (Cesar Barrow MD [facility]) 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 Findings Both Eyes 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 Findings Both Eyes Outpatient Attender: HUGH Eduardo/Lucio/Sai/Reindl 05/25/2020 02:00:00 PM EDT [facility] ([facility] Outpatient Attender: Gail Jeffrieseferrer: Gail Reyes NP 05/03/2020 12:50:00 PM EDT - 05/03/2020 02:00:00 PM EDT [facility] Outpatient Attender: Jason Alcantara MDConsultant: Gail Garces NP 04/26/2020 10:00:00 AM EDT - 04/26/2020 11:00:00 AM EDT [facility] Patient discharged. Outpatient Attender: David Hatfield/Lucio/Sai/Re indl 04/24/2020 01:00:00 PM EDT [facility] ([facility]) Outpatient Referrer: Jason Alcantara MD 04/17/2020 02:53:0 0 PM EDT [facility] Outpatient Referrer: Jason Alcantara MD 04/13/2020 09:44:0 0 AM EDT [facility] Outpatient 04/13/2020 09:41:00 AM EDT [facility] Outpatient 04/13/2020 09:41:00 AM EDT [facility] Outpatient 04/04/2020 05:40:00 AM EDT [facility] Outpatient Attender: HUGH Eduardo/[place]/Sai/Reindl 03/13/2020 02:30:00 PM EDT [facility] ([facility]) Outpatient Attender: Gail Jeffrieseferrer: Gail Reyes NP 02/28/2020 01:41:00 PM EDT [facility] Inpatient Attender: Evelyn rodriguez FNPAttender: TADEO RITCHIE DOConsultant: Gail Armendarizonsultant: Franca Nicole MD 02/21/2020 09:03:00 AM EDT - 02/26/2020 12:27:00 PM EDT [facility] Patient discharged. Outpatient 02/19/2020 02:18:00 PM EDT [facility] Outpatient 01/21/2020 05:32:00 AM EDT [facility] Outpatient 01/21/2020 05:32:00 AM EDT [facility] Outpatient Attender: Gail Jeffrieseferrer: Gail Reyes NP 01/17/2020 09:36:00 AM EDT [facility] Outpatient Attender: David Hatfield/Lucio/Sai/Sue indl 01/13/2020 02:15:00 PM EDT [facility] ([facility] Inpatient Attender: Evelyn rodriguez FNPAttender: TADEO RITCHIE DOReferrer: OSMEL ALVAREZ MDConsultant: Gail Reyes NPConsultant: Franca Nicole MD 01/10/2020 08:50:00 AM EDT - 01/11/2020 12:10:00 PM EDT [facility] Patient discharged. Outpatient 01/08/2020 08:37:00 AM EST [facility] Outpatient 01/07/2020 05:19:00 AM EST [facility] Outpatient 12/30/2019 05:55:00 PM EST [facility] Outpatient Attender: Gail Jeffrieseferrer: Gail Reyes NP 12/13/2019 12:07:00 PM EST [facility] Outpatient Attender: DOUG Peterserrer: Gail watkins NP 12/13/2019 10:25:00 AM EST - 12/13/2019 11:34:00 AM EST [facility] Outpatient 12/09/2019 09:28:00 PM EST [facility]patient 11/24/2019 03:04:00 PM EST [facility] Outpatient Attender: DOUG Peterserrer: Gail watkins NP 11/12/2019 01:14:00 PM EST - 11/12/2019 01:57:00 PM EST [facility] Outpatient Attender: DOUG LOPEZ 0 12:13:00 PM EST M25.561,[id number] [facility] M25.561,M25.462 Outpatient 11/11/2019 08:34:00 PM EST [facility] Outpatient Attender: HUGH PARNELL DOConsultant: Franca Nicole MD 10/11/2019 02:39:00 PM EST - 10/11/2019 03:39:00 PM EST [facility] Immunizations Vaccine Date Status Description Data Source(s) IIV3. This is one of two codes replacing CVX 15, which is being retired. 08/25/2020 12:00:00 AM EDT completed influenza vaccine, inactivated [facility] INFLUENZA VIRUS VACCINE QUADRIVAL (6 MOS AND UP)/PF 08/25/2020 12:00:00 AM EDT completed [facility] Medications Medication Brand Name Start Date Product Form Dose Route Admi nistrative Instructions Pharmacy Instructions Status Indications Reaction Description Data Source(s) Magnesium Oxide 200 MG Oral Tablet Mag-200 12/12/2020 12:00:00 AM EST active [facility] (Osmel Alvarez MD) Aspirin 81 MG Delayed Release Oral Tablet Aspirin 81 2020 12:00:00 AM EST ORAL active [facility] ( Osmel Alvarez MD) doxycycline hyclate 100 MG Oral Capsule Doxycycline Hyclate 11/10/2020 12:00:00 AM EST active [facility] ([facility]) 30 ACTUAT fluticasone furoate 0.2 MG/ACT UAT / vilanterol 0.025 MG/ACTUAT Dry Powder Inhaler [Breo] Breo Ellipta 11/07/2020 12:00:00 AM EST active [facility] (Osmel white MD) Potassium 10 mg Oral Tablet Potassium 10 mg Oral Tablet 01/2020 12:00:00 AM EST 1 active Potassium [place]EN[place] (Cesar Barrow MD [facility]) Diltiazem 180 mg Oral Tablet Diltiazem 180 mg Oral Tablet 12:00:00 AM EST 1 active Diltiazem NOEMÍ Y (Cesar Barrow MD [facility]) Aspirin 81 MG Delayed Release Oral Table t Adult Aspirin EC Low Strength 81 MG Oral Tablet Delayed Release Adult Aspirin EC Low Strength 81 MG Oral Tablet Delayed Release 10/05/2020 12:00:00 AM EST 1 ac tive aspirin 81 MG Delayed Release Oral Tablet CJ (Cesar Barrow MD [facility]) 30 ACTUAT fluticasone furoate 0.1 MG/ACT UAT / vilanterol 0.025 MG/ACTUAT Dry Powder Inhaler [Breo] Breo Ellipta 100-25 MCG/INH Inhalation Aerosol Powder Breath Activated Breo Ellipta 100-25 MCG/INH Inhalation A erosol Powder Breath Activated 10/05/2020 12:00:00 AM EST active 30 ACTUAT fluticasone furoate 0.1 MG/ACTUAT / vilanterol 0.025 MG/ACTUAT Dry Powder Inhaler [Breo] CJ (Cesar Barrow MD [facility]) Magnesium 1000 MG CAP Oral Capsule Magnesium 1000 MG CAP Ora l Capsule 10/05/2020 12:00:00 AM EST 1 active Magnesi um 1000 MG CAP CJ (Cesar Barrow MD [facility]) Folic Acid 0.8 MG Oral Tablet Folic Acid 800 MCG Oral Tablet Folic Acid 800 MCG Oral Tablet 10/05/2020 12:00:00 AM EST 1 active folic acid 0.8 MG Oral Tablet CJ (Cesar Barrow MD [facility]) Pantoprazole 40 MG Oral Tablet Pantoprazole 40 MG Oral Table t 10/05/2020 12:00:00 AM EST 1 active Pantopra zole CJ (Cesar Barrow MD [facility]) rivaroxaban 10 MG Oral Tablet [Xarelto] Xarelto 10 MG Oral Tablet Xarelto 10 MG Oral Tablet 10/05/2020 12:00:00 AM EST 1 active rivaroxaban 10 MG Oral Tablet [Xarelto] CJ (Cesar Barrow MD [facility]) Potassium Chloride 10 MEQ Extended Release Oral Tablet Potassium Chloride Jennifer ER 08/15/2020 12:00:00 AM EDT ORAL completed [facility] (Osmel Alvarez MD) Furosemide 20 MG Oral Tablet Furosemide 08/15/2020 12:00:00 AM EDT active [facility] (Osmel Alvarez MD) Magnesium 500 MG Oral Capsule Magnesium 500 MG Oral Capsule 06/15/2020 12:00:00 AM EDT 1 aborted Magnesium GREEN[place] AY (Cesar Barrow MD [facility]) nebivolol 5 MG Oral Tablet [Bystolic] Bystolic 5 MG Or al Tablet Bystolic 5 MG Oral Tablet 06/15/2020 12:00:00 AM EDT 1 active nebivolol 5 MG Oral Tablet [Bystolic] CJ (Cesar Barrow MD [facility]) Furosemide 20 MG Oral Tablet Furosemide 20 MG Oral Tablet 12:00:00 AM EDT active furosemide 20 MG Oral Tablet CJ (Cesar Barrow MD [facility]) 60 ACTUAT Budesonide 0.16 MG/ACTUAT / fo rmoterol fumarate 0.0045 MG/ACTUAT Metered Dose Inhaler [Symbicort] Symbicort 160-4.5 MCG/ACT Inhalation Aerosol Symbicort 160-4.5 MCG/ACT Inhalation Aerosol 06/15/2020 12:00:00 AM EDT 1 aborted 60 ACTUAT budeso nide 0.16 MG/ACTUAT / formoterol fumarate 0.0045 MG/ACTUAT Metered Dose Inhaler [Symbicort] CJ (eCsar Barrow MD [facility]) Spiriva Respimat 2.5 MCG/ACT Inhalation Aerosol Soluti on Spiriva Respimat 2.5 MCG/ACT Inhalation Aerosol Solution 06/15/2020 12:00:00 AM EDT 1 active 10 ACTUAT tiotropium 0.0025 MG/ACTUAT In halation [place] [Spiriva] CJ (Cesar Barrow MD [facility]) pantoprazole 40 MG Delayed Release Oral Tablet Pantoprazole Pantoprazole 05/03/2020 01:35:40 PM EDT 40 MG active [facility] pantoprazole 40 MG Delayed Release Oral Tablet Pantoprazole Pantoprazole 05/03/2020 01:35:40 PM EDT 40 MG active [facility] Magnesium Oxide 500 MG Oral Capsule Magnesium Oxide 05/03/2020 0 1:09:26 PM EDT 500 MG active [facility] Magnesium Oxide 500 MG Oral Capsule Magnesium Oxide 05/03/2020 0 1:09:26 PM EDT 500 MG active [facility] Furosemide 20 MG Oral Tablet Furosemide 05/03/2020 01:07:50 PM EDT 20 MG active [facility] Furosemide 20 MG Oral Tablet Furosemide 05/03/2020 01:07:50 PM EDT 20 MG active [facility] nebivolol 5 MG Oral Tablet Nebivolol (Bystolic) 5 mg t ablet Nebivolol (Bystolic) 5 mg tablet 05/03/2020 01:07:21 PM EDT 5 MG active [facility] nebivolol 5 MG Oral Tablet Nebivolol (Bystolic) 5 mg t ablet Nebivolol (Bystolic) 5 mg tablet 05/03/2020 01:07:21 PM EDT 5 MG active [facility] 24 HR metoprolol succinate 25 MG Extende d Release Oral Tablet Metoprolol Succinate Metoprolol Succinate 02/28/2020 02:12:10 PM EDT 25 MG completed [facility] 24 HR metoprolol succinate 25 MG Extende d Release Oral Tablet Metoprolol Succinate Metoprolol Succinate 02/28/2020 02:12:10 PM EDT 25 MG completed [facility] 24 HR metoprolol succinate 25 MG Extende d Release Oral Tablet Metoprolol Succinate Metoprolol Succinate 02/28/2020 02:12:10 PM EDT 25 MG active [facility] Mupirocin 0.02 MG/MG Topical Ointment Mupirocin 02/04/2020 12:00:00 AM EDT completed [facility] ([facility], ) 24 HR Diltiazem Hydrochloride 120 MG Ext ended Release Oral Capsule Diltiazem Hcl Diltiazem Hcl 01/17/2020 09:55:07 AM EDT [facility] HR Diltiazem Hydrochloride 120 MG Ext ended Release Oral Capsule Diltiazem Hcl Diltiazem Hcl 01/17/2020 09:55:07 AM EDT 120 MG ac tive [facility] 24 HR Diltiazem Hydrochloride 120 MG Ext ended Release Oral Capsule Diltiazem Hcl Diltiazem Hcl 01/17/2020 09:55:07 AM EDT 120 MG co mpleted [facility] 24 HR Diltiazem Hydrochloride 120 MG Ext ended Release Oral Capsule Diltiazem Hcl Diltiazem Hcl 01/17/2020 09:55:07 AM EDT [facility] silver sulfadiazine 10 MG/ML Topical Cream Silver Sulf adiazine Silver Sulfadiazine 12/13/2019 12:29:00 PM EST 1 APPLIC active [facility] silver sulfadiazine 10 MG/ML Topical Cre am Silver Sulfadiazine (Silvadene) 1 % cream Silver Sulfadiazine (Silvadene) 1 % cream 12/13/2019 12:29:00 PM EST 1 APPLIC completed [facility] silver sulfadiazine 10 MG/ML Topical Cream Silver Sulf adiazine Silver Sulfadiazine 12/13/2019 12:29:00 PM EST 1 APPLIC active [facility] silver sulfadiazine 10 MG/ML Topical Cre am Silver Sulfadiazine (Silvadene) 1 % cream Silver Sulfadiazine (Silvadene) 1 % cream 12/13/2019 12:29:00 PM EST 1 APPLIC completed [facility] silver sulfadiazine 10 MG/ML Topical Cream Silver Sulf adiazine Silver Sulfadiazine 12/13/2019 12:29:00 PM EST 1 APPLIC active [facility] Folic Acid 1 MG Oral Tablet Folic Acid 12/13/2019 10:40:18 AM EST 1 MG active [facility] Folic Acid 1 MG Oral Tablet Folic Acid 12/13/2019 10:40:18 AM EST 1 MG active [facility] Folic Acid 1 MG Oral Tablet Folic Acid 12/13/2019 10:40:18 AM EST 1 MG completed [facility] Folic Acid 1 MG Oral Tablet Folic Acid 12/13/2019 10:40:18 AM EST 1 MG completed [facility] Folic Acid 1 MG Oral Tablet Folic Acid 12/13/2019 10:40:18 AM EST 1 MG active [facility] Folic Acid 1 MG Oral Tablet Folic Acid 12/13/2019 10:40:18 AM EST 1 MG active [facility] pantoprazole 40 MG Oral Granules Pantoprazole Pantoprazole 07/13/2019 10:50:15 AM EDT 40 MG completed [facility] pantoprazole 40 MG Oral Granules Pantoprazole Pantoprazole 07/13/2019 10:50:15 AM EDT 40 MG completed [facility] rivaroxaban 20 MG Oral Tablet [Xarelto] Xarelto 20MG O ral Tablet Xarelto 20MG Oral Tablet 06/12/2018 12:00:00 AM EDT aborte d rivaroxaban 20 MG Oral Tablet [Xarelto] CJ (Cesar Barrow MD [facility]) pantoprazole 20 MG Delayed Release Oral Tablet Pantoprazole Sodium 20MG Oral Tablet, enteric coated Pantoprazole Sodium 20MG Oral Tablet, enteric coated 02/03/2017 12:00:00 AM EDT 1 aborted pantoprazole 20 MG Delayed Release Oral Tablet CJ (Cesar Barrow MD [facility]) montelukast 10 MG Oral Tablet [Singulair] Singulair 10 MG Oral Tablet Singulair 10MG Oral Tablet 02/03/2017 12:00:00 AM EDT 1 a borted montelukast 10 MG Oral Tablet [Singulair] CJ (Cesar Barrow MD [facility]) cetirizine hydrochloride 10 MG Oral Tabl et [Zyrtec] ZyrTEC Allergy 10MG Oral Tablet ZyrTEC Allergy 10MG Oral Tablet 02/03/2017 12:00:00 AM EDT 1 aborted cetirizine hydrochloride 10 MG O ral Tablet [Zyrtec] CJ (Cesar Barrow MD [facility]) Insurance Providers Payer name Policy type / Coverage type Policy ID Covered republican ID Covered republican's relationship to panchal Policy Panchal Plan Information MEDICARE [id number] SP [id number] BCBS FEDERAL EM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 [id number] MEDICARE PART A -I/P [id number] 18 [id number] BLUE CROSS BLUE SHIELD -I/P [id number] 01 [id number] MEDICARE PART A -O/P [id number] 18 [id number] BLUE CROSS BLUE SHIELD FEDERAL -O/P [id number] 01 [id number] [place]/307 [id number] SP [id number] MEDICARE C [id number] S [id number] A90 BC [place] FEDERAL B [id number] P [id number] Medicare Part B of [place] Other 0 Se lf 0 [place] of [place] Other 0 Famil y Dependent Jose Solomon 0 [place] Other 0 Famil y Dependent Jose Solomon 0 BLUE CROSS BLUE SHIELD-O/P [id number] 18 [id number] BLUE CROSS BLUE SHIELD -PHYSICIAN [id number] 1 [id number] BLUE CROSS BLUE SHIELD -O/P [id number] 01 [id number] BLUE CROSS BLUE SHIELD -O/P 123 [id number] BCBS FEDERAL EM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 [id number] [place] 302/307 [id number] SP [id number] EXCELLUS BCBS B [id number] S [id number] [place] 302/307 [id number] SP [id number] BCBS FEDERAL EM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 [id number] 2 [id number] BCBS FEDERAL EM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 [id number] BCBS of [facility] [place] Other 0 Self 0 [place] of [place] Individual Policy 0 Self 0 [place] Individual Policy 0 Self 0 [employer] [place] [employer] [id number] Self [id number] [place] [place] Individual Policy 0 Self 0 [employer] [place] [employer] [id number] Self [id number] [employer] [place] Individual Policy 0 Self 0 [employer] [place] [employer] [id number] Self [id number] [employer] [place] Individual Policy 0 Self 0 [employer] [place] [employer] [id number] Self [id number] BS [employer] [employer] [id number] Self [id number] [employer] [place] Individual Policy 0 Self 0 EXCELLUS C [id number] Self [id number] [employer] [place] Individual Policy 0 Self 0 [employer] [place] Individual Policy 0 Self 0 [employer] [place] Individual Policy 0 Self 0 Excellus BCBS Health Maintenance Organization (HMO) [id number] Self [id number] [employer] [place] Individual Policy 0 Self 0 [employer] [place] Individual Policy 0 Self 0 [employer] [place] Individual Policy 0 Self 0 [employer] [place] Individual Policy 0 Self 0 [employer] [place] Individual Policy 0 Self 0 [employer] Health Maintenance Organization (HMO) [id number] Self [id number] [employer] [place] Individual Policy 0 Self 0 [employer] [place] Individual Policy 0 Self 0 [employer] [place] Individual Policy 0 Self 0 [employer] [employer] Commercial [id number] Self [id number] EXCELLUS [place] BS [id number] 18 [id number] [employer] [place] Individual Policy 0 Self 0 [employer] [place] Individual Policy 0 Self 0 [employer] [place] Individual Policy 0 Self 0 [employer] [place] Individual Policy 0 Self 0 [employer] [place] Individual Policy 0 Self 0 [employer] [place] Individual Policy 0 Self 0 [employer] [place] Individual Policy 0 Self 0 [employer] [place] Individual Policy 0 Self 0 [employer] [place] Individual Policy 0 Self 0 [employer] Health Maintenance Organization (HMO) [id number] Self [id number] [employer] [place] Individual Policy 0 Self 0 [employer] BCBS Health Maintenance Organization (HMO) [id number] Self [id number] EXCELLUS BCBS B [id number] S [id number] BC[employer] [place] Individual Policy 0 Self 0 [employer] [place] Individual Policy 0 Self 0 [employer] [place] Individual Policy 0 Self 0 [employer] [place] Individual Policy 0 Self 0 [employer] [place] Individual Policy 0 Self 0 [employer] [place] Individual Policy 0 Self 0 [employer] [place] Individual Policy 0 Self 0 [employer] [place] Individual Policy 0 Self 0 [employer] [place] Individual Policy 0 Self 0 [employer] [place] Individual Policy 0 Self 0 [employer] of [place] Individual Policy 0 Self 0 [employer] [place] Individual Policy 0 Self 0 [place] [place] Individual Policy 0 Self 0 [place] Individual Policy 0 Self 0 BCBS of [facility] [place] Individual Policy 0 Self 0 EXCELLUS C [id number] Self [id number] BCBS OF [place] 306/806 [id number] SP [id number] BCBS OF [place] 306/806 [id number] SP [id number] BC/BS Of [employer] Commercial Self BLUE CROSS BLUE SHIELD-O/P [id number] 18 [id number] Problems, Conditions, and Diagnoses Code Display Name Description Problem Type Effective Dates Data Source(s) 947632563 Transient ischemic attack (disorder) Transient I schemic Attack (Tia) Problem 10/05/2020 12:00:00 AM EST CJ (Cesar sanchez MD [facility]) 366.16 Cataract Senile Nuclear Cataract Senile Nuclear Proble m 06/15/2020 12:00:00 AM EDT CJ (Cesar Barrow MD [facility]) 366.16 Cataract Senile Nuclear Cataract Senile Nuclear Proble m 06/15/2020 12:00:00 AM EDT CJ (Cesar Barrow MD [facility]) [id number] Bleeding from nose Bleeding from nose Problem 09/2020 12:00:00 AM EDT [facility] ([facility]) Pathological fracture, other site, subsequent encounter for fracture with delayed healing Pathological fracture, other site, subse quent encounter for fracture with delayed healing Problem 11/10/2019 12:00:00 AM EST [facility] ([facility] ) R911 Solitary pulmonary nodule Solitary pulmonary nodule Di agnosis 12/08/2020 12:28:00 PM [facility] R05 Cough Cough Diagnosis 12/08/2020 12:28:00 PM [facility] Z9981 Dependence on supplemental oxygen Dependence on supplemental oxygen Diagnosis 11/24/2020 02:59:00 PM [facility] Z923 Personal history of irradiation Personal history of ir radiation Diagnosis 11/24/2020 02:59:00 PM [facility] [id number] Personal history of other malignant neop lasm of bronchus and lung Personal history of other malignant neoplasm of bronchus and lung Diagnosis 11/24/2020 02:59:00 PM [facility] I10 Essential (primary) hypertension Essential (primary) h ypertension Diagnosis 11/24/2020 02:59:00 PM [facility] I4891 Unspecified atrial fibrillation Unspecified atrial fib rillation Diagnosis 11/24/2020 02:59:00 PM [facility] C7951 Secondary malignant neoplasm of bone Secondary m alignant neoplasm of bone Diagnosis 11/24/2020 02:59:00 PM [facility] J440 Chronic obstructive pulmonar y disease with (acute) lower respiratory infection Chronic obstructive pulmonary disease wi th (acute) lower respiratory infection Diagnosis 11/24/2020 02:59:00 PM [facility] J441 Chronic obstructive pulmonary disease wi th (acute) exacerbation Chronic obstructive pulmonary disease with (acute) exacerbation Diagnosis 11/24/2020 02:59:00 PM [facility] J1282 PNEUMONIA DUE TO CORONAVIRUS DISEASE 201 9 PNEUMONIA DUE TO CORONAVIRUS DISEASE 2019 Diagnosis 11/24/2020 02:59:00 PM [facility] U071 COVID-19 COVID-19 Diagnosis 11/24/2020 02:59:00 PM [facility] N281 Cyst of kidney, acquired Cyst of kidney, acquired Diag nosis 10/12/2020 08:53:00 AM [facility] N179 Acute kidney failure, unspecified Acute kidney f ailure, unspecified Diagnosis 10/12/2020 08:53:00 AM [facility] U60646 Personal history of nicotine dependence Personal history of nicotine dependence Diagnosis 09/27/2020 05:50:00 PM [facility] [id number] Personal history of pulmonary embolism P ersonal history of pulmonary embolism Diagnosis 09/27/2020 05:50:00 PM [facility] G459 Transient cerebral ischemic attack, unsp ecified Transient cerebral ischemic attack, unspecified Diagnosis 09/27/2020 05:50:00 PM [facility] C3412 Malignant neoplasm of upper lobe, left b ronchus or lung Malignant neoplasm of upper lobe, left bronchus or lung Diagnosis 09/05/2020 12:32:00 PM [facility] C3490 Malignant neoplasm of unspecified part o f unspecified bronchus or lung Malignant neoplasm of unspecified part of unspecified bronchus or lung Diagnosis 08/29/2020 09:44:00 AM EDT [facility] I509 Heart failure, unspecified Heart failure, unspecified Diagnosis 08/15/2020 10:38:00 AM EDT [facility] E8342 Hypomagnesemia Hypomagnesemia Diagnosis 08/15/2020 10:38: 00 AM EDT [facility] D649 Anemia, unspecified Anemia, unspecified Diagnosis 1 10:38:00 AM EDT [facility] E119 Type 2 diabetes mellitus without complic ations Type 2 diabetes mellitus without complications Diagnosis 08/15/2020 10:38:00 AM EDT [facility] D696 Thrombocytopenia, unspecified Thrombocytopenia, unspec ified Diagnosis 08/05/2020 08:23:00 PM EDT [facility] F419 Anxiety disorder, unspecified Anxiety disorder, unspec ified Diagnosis 08/05/2020 08:23:00 PM EDT [facility] J449 Chronic obstructive pulmonary disease, u nspecified Chronic obstructive pulmonary disease, unspecified Diagnosis 08/05/2020 08:23:00 PM EDT [facility] I480 Paroxysmal atrial fibrillation Paroxysmal atrial fibri llation Diagnosis 08/05/2020 08:23:00 PM EDT [facility] C3491 Malignant neoplasm of unspecified part o f right bronchus or lung Malignant neoplasm of unspecified part of right bronchus or lung Diagnosis 08/01/2020 11:12:00 AM EDT [facility] C3402 Malignant neoplasm of left main bronchus Malignant neoplasm of left main bronchus Diagnosis 04/26/2020 10:00:00 AM EDT [facility] M542 Cervicalgia Cervicalgia Diagnosis 04/26/2020 10:00:00 AM EDT [facility] 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, lumbar region Other intervertebral disc displacement, lumbar region Diagnosis 04/26/2020 10:00:00 AM EDT [facility] 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, lumbar region Spondylosis without myelopathy or radiculopathy, lumbar region Diagnosis [facility] Elevated white blood cell count, unspeci fied Elevated white blood cell count, unspecified Diagnosis [facility]2020 [facility] Tachycardia, unspecified Tachycardia, unspecified Diag nosis 02/21/2020 09:03:00 AM [facility] R6510 Systemic inflammatory respon se syndrome (SIRS) of non-infectious origin without acute organ dysfunction Systemic inflammatory response syndrome (SIRS) of non-infectious origin without acute organ dysfunction Diagnosis 02/21/2020 09:03:00 AM [facility] J189 Pneumonia, unspecified organism Pneumonia, unspecified organism Diagnosis 02/21/2020 09:03:00 AM [facility] S05446 Personal history of other venous thrombo sis and embolism Personal history of other venous thrombosis and embolism Diagnosis 01/10/2020 08:50:00 AM [facility] Surgeries/Procedures Procedure Description Date Indications Data Source(s) ECHO TTHRC R-T 2D W/WOM-MODE COMPL SPEC&COLR DOP 12/12 12:00:00 AM [facility] (Osmel Alvarez MD) Blood culture for bacteria, including anaerobic screen (proc edure) 11/24/2020 12:00:00 AM [facility] Introduction of Remdesivir Anti-infectiv e into Peripheral Vein, Percutaneous Approach, [employer] 5 Introduction of Remdesivir Anti-infectiv e into Peripheral Vein, Percutaneous Approach, [employer] 11/24/2020 12:00:00 AM [facility] Introduction of Anesthetic Agent into Re spiratory Tract, Via Natural or Artificial Opening Introduction of Anesthetic Agent into Re spiratory Tract, Via Natural or Artificial Openin 11/24/2020 12:00:00 AM [facility] Introduction of Other Anti-infective int o Peripheral Vein, Percutaneous Approach Introduction of Other Anti-infective int o Peripheral Vein, Percutaneous Approach 11/24/2020 12:00:00 AM [facility] Monitoring of Cardiac Electrical Activity, External Ap proach Monitoring of Cardiac Electrical Activity, External Approach 11/24/2020 12:00:00 AM [facility] ECG ROUTINE ECG W/LEAST 12 LDS W/I&R 11/07/2020 12:00: 00 AM EST [facility] (Osmel Alvarez MD) XTRNL ECG < 48 HR RECORD SCAN STOR W/PHY R&I 0 12:00:00 AM EST [facility] (Osmel Alvarez MD) Intermediate Eye Exam Established Patient Intermediate Eye Exam Established Patient 10/05/2020 12:00:00 AM EST CJ (David Barrow MD [facility]) ECHO TTHRC R-T 2D W/WOM-MODE COMPL SPEC&COLR DOP 10/03 12:00:00 AM EST [facility] (Osmel Alvarez MD) XTRNL ECG < 48 HR RECORD SCAN STOR W/PHY R&I 0 12:00:00 AM EDT [facility] (Osmel Alvarez MD) ECHO TTHRC R-T 2D W/WOM-MODE COMPL SPEC&COLR DOP 08/18 12:00:00 AM EDT [facility] (Osmel Alvarez MD) Computerized Tomography (CT Scan) of Chest and Abdomen Computerized Tomography (CT Scan) of Chest and Abdomen 08/06/2020 12:00:00 AM EDT [facility] Plain Radiography of Chest Plain Radiography of Chest 2019 12:00:00 AM [facility] Introduction of Antiarrhythmic into Peripheral Vein, P ercutaneous Approach Introduction of Antiarrhythmic into Peripheral Vein, Percutaneous Approach 08/05/2020 12:00:00 AM [facility] Intermediate Eye Exam Established Patient Intermediate Eye Exam Established Patient 06/15/2020 12:00:00 AM EDT CJ (David Barrow MD [facility]) Intermediate Eye Exam Established Patient Intermediate Eye Exam Established Patient 06/15/2020 12:00:00 AM EDT CJ (David Barrow MD [facility]) Scodi, optic nerve with interpretation and report Scod i, optic nerve with interpretation and report 06/07/2020 12:00:00 AM EDT NOEMÍ Avalos (Cesar Barrow MD [facility]) Visual Field Visual Field 06/07/2020 12:00:00 AM EDT Frank DE GUZMAN (Cesar Barrow MD [facility]) Visual Field Visual Field 06/07/2020 12:00:00 AM EDT Frank DE GUZMAN (Cesar Barrow MD [facility]) Scodi, optic nerve with interpretation and report Scod i, optic nerve with interpretation and report 06/07/2020 12:00:00 AM EDT NOEMÍ Avalos (Cesar Barrow MD [facility]) Control Nosebleed Anterior Simple 04/05/2020 12:00:00 AM EDT SORIN ([facility], ) Spirometry 03/13/2020 12:00:00 AM EDT Sarah RENTERIA ([facility], ) Ultrasonography of Bilateral Lower Extremity Veins Ult rasonography of Bilateral Lower Extremity Veins 02/21/2020 12:00:00 AM EDT [facility] Introduction of Electrolytic and Water B alance Substance into Peripheral Vein, Percutaneous Approach Introduction of Electrolytic and Water B alance Substance into Peripheral Vein, Percutaneous Approach 02/21/2020 12:00:00 AM T [facility] Introduction of Anti-inflammatory into Peripheral Vein , Percutaneous Approach Introduction of Anti-inflammatory into Peripheral Vein, Percutaneous Approach 02/21/2020 12:00:00 AM [facility] Blood culture for bacteria, including anaerobic screen (proc edure) 02/19/2020 12:00:00 AM EDT [facility] Blood culture for bacteria, including anaerobic screen (proc edure) 02/19/2020 12:00:00 AM EDT [facility] l Blood culture for bacteria, including anaerobic screen (proc edure) 02/19/2020 12:00:00 AM EDT [facility] l Control Nosebleed Anterior Simple 02/04/2020 12:00:00 AM EDT MEDRICH ([facility], ) Blood culture for bacteria, including anaerobic screen (proc edure) 01/08/2020 12:00:00 AM EST [facility] l Blood culture for bacteria, including anaerobic screen (proc edure) 01/08/2020 12:00:00 AM EST [facility] Blood culture for bacteria, including anaerobic screen (proc edure) 01/08/2020 12:00:00 AM [facility] Blood culture for bacteria, including anaerobic screen (proc edure) 01/08/2020 12:00:00 AM [facility] X-ray of right knee (procedure) 11/12/2019 12:21:51 PM [facility] X-ray of left knee (procedure) 11/12/2019 12:21:51 PM [facility] X-ray of right knee (procedure) 11/12/2019 12:21:51 PM [facility] X-ray of left knee (procedure) 11/12/2019 12:21:51 PM [facility] X-ray of right knee (procedure) 11/12/2019 12:21:51 PM [facility] X-ray of left knee (procedure) 11/12/2019 12:21:51 PM [facility] X-ray of right knee (procedure) 11/12/2019 12:21:51 PM [facility] X-ray of left knee (procedure) 11/12/2019 12:21:51 PM [facility] X-ray of right knee (procedure) 11/12/2019 12:21:51 PM [facility] X-ray of left knee (procedure) 11/12/2019 12:21:51 PM [facility] X-ray of right knee (procedure) 11/12/2019 12:21:51 PM [facility] X-ray of left knee (procedure) 11/12/2019 12:21:51 PM [facility] Results ID Date Data Source [id number] 12/23/2020 08:54:00 AM [facility] Name Value Range Interpretation Code Description Data Maura rce(s) Supporting Document(s) CBC W/AUTOMATED DIFF [facility] COMPLETE BLOOD COUNT Leukocytes [#/volume] in Blood by Automated count 4.1 10^3/uL 4.2 - 1 1.0 L [facility] Erythrocytes [#/volume] in Blood by Automated count 2.75 10^6/uL 4. 20 - 5.40 L [facility] Hemoglobin [Mass/volume] in Blood 9.4 g/dL 12.0 - 16.0 L [facility] Hematocrit [Volume Fraction] of Blood by Automated count 27.8 % 3 7.0 - 47.0 L [facility] Erythrocyte mean corpuscular volume [Entitic volume] b y Automated count 101.1 fL 81.0 - 101 H [facility] Erythrocyte mean corpuscular hemoglobin [Entitic mass] by Automated count 34.2 pg 27.0 - 34.0 H [facility] Erythrocyte mean corpuscular hemoglobin concentration [Mass/volume] by Automated count 33.8 g/dL 31.0 - 36.0 [facility] Erythrocyte distribution width [Ratio] by Automated count 14.2 % 11.5 - 14.5 [facility] Platelets [#/volume] in Blood by Automated count 219 10^3/uL 150 - 45 0 [facility] Platelet mean volume [Entitic volume] in Blood by Automated count 9.3 fL 7.4 - 10.4 [facility] Neutrophils/100 leukocytes in Blood by Automated count 62.4 % 37. 0 - 80.0 [facility] Lymphocytes/100 leukocytes in Blood by Manual count 11.3 % 25.0 - 40.0 L [facility] Monocytes/100 leukocytes in Blood by Automated count 17.2 % 3.0 - 8.0 H [facility] Eosinophils/100 leukocytes in Blood by Automated count 0.0 % 0.0 - 7.0 [facility] 0.5 %IG 8.6 % 0.0 - 0.0 H [facility] al %NRBC 0.5 % 0.0 - 0.0 H [facility] al Neutrophils [#/volume] in Blood by Automated count 2.53 10^3/uL 2.00 - 6.90 [facility] Lymphocytes [#/volume] in Blood by Automated count 0.46 10^3/uL 0.60 - 3.40 L [facility] Monocytes [#/volume] in Blood by Automated count 0.70 10^3/uL 0.00 - 0.90 [facility] Eosinophils [#/volume] in Blood by Automated count 0.00 10^3/uL 0.00 - 0.70 [facility] Basophils [#/volume] in Blood by Automated count 0.02 10^3/uL 0.00 - 0.20 [facility] #IG 0.35 10^3/uL 0.00 - 0.[address] [facility] H ospital #NRBC 0.02 10^3/uL 0.00 - 0.00 H [facility] ospital MANUAL DIFF SEE BELOW [facility] ital Segmented neutrophils/100 leukocytes in Blood by Manual count 73 % 37 - 80 [facility] BAND 0 % 0 - 5 [facility]H 16 % 25 - 40 L [facility] %MONO 11 % 3 - 8 [facility] %EOS 0 % 0 - 7 [facility] [address] RBC MORPH NOT INDIC[address] [facility] Ho spital ID Date Data Source [id number] 12/23/2020 08:49:00 AM EST [facility] Name Value Range Interpretation Code Description Data Maura rce(s) Supporting Document(s) COMPREHENSIVE METABOLIC PANEL [facility] COMPREHENSIVE METABOLIC PANEL Sodium [Moles/volume] in Serum or Plasma 136 mEq/L 134 - 153 [facility] Potassium [Moles/volume] in Serum or Plasma 4.8 mEq/L 3.6 - 5.0 [facility] Chloride [Moles/volume] in Serum or Plasma 98 mEq/L 98 - 107 [facility] Carbon dioxide, total [Moles/volume] in Serum or Plasma 29 MEQ/L 22 - 30 [facility] Glucose [Mass/volume] in Serum or Plasma 147 MG/DL 70 - 99 H [facility] BUN 21 MG/DL 7 - 21 [facility] al Creatinine [Mass/volume] in Serum or Plasma 0.8 MG/DL 0.7 - 1.5 [facility] BUN/CREAT 26 8 - 27 [facility] al Protein [Mass/volume] in Serum or Plasma 6.2 G/DL 6.3 - 8.2 L [facility] Albumin [Mass/volume] in Serum or Plasma 3.4 G/DL 3.9 - 5.0 L [facility] Globulin [Mass/volume] in Serum by calculation 2.8 GM/DL 2.4 - 3.2 [facility] A/G RATIO 1.2 0.8 - 2.0 [facility] al Calcium [Mass/volume] in Serum or Plasma 8.3 MG/DL 8.4 - 10.2 L [facility] Bilirubin.total [Mass/volume] in Serum or Plasma <0.7 MG/DL 0.2 - 1.3 [facility] Alkaline phosphatase [Enzymatic activity/volume] in Serum or Plasma 102 U/L 38 - 126 [facility] Aspartate aminotransferase [Enzymatic activity/volume] in Serum or Plasma 47 U/L 5 - 40 H [facility] Alanine aminotransferase [Enzymatic activity/volume] in Seru m or Plasma 64 U/L 7 - 56 H [facility] Anion gap 3 in Serum or Plasma 9.0 mmol/L 8.0 - 16.0 [facility] AGE 55 yrs [facility] al NON-AA GFR >60 mL/min [facility] ital AFR AMER GFR >60 mL/min [facility] Ho spital Male GFR In terprentation 20-49 yrs >60 mL/min Normal 50-59 yrs >56 mL/min Normal 60-69 yrs >49 mL/min Normal 70-79yrs >42 mL/min Normal 80 and above >35 mL/min Normal Female GFR Interpretation 20-39 yrs >60 mL/min Normal 40-49 yrs >58 mL/min Normal 50-59 yrs >51 mL/min Normal 60-69 yrs >45 mL/min Normal 70-79 yrs >39 mL/min Normal 80 and above >32 mL/min Normal ID Date Data Source [id number] 12/23/2020 08:34:00 AM [facility] Name Value Range Interpretation Code Description Data Maura rce(s) Supporting Document(s) Magnesium [Mass/volume] in Serum or Plasma 1.7 MG/DL 1.7 - 2.2 [facility] ID Date Data Source [id number] 12/22/2020 02:04:00 PM [facility] [address] [place] [address] RESPIRATORY CARE REPORT ==== ---------NAME------- NUMBER SEX AGE ADMIT DISC. XRAY# F/C CYNDY Daniels [id number] F 55 12/20/20 [id number] B1 I/P DATE OF : 1965 M/R# [id number] PH#: [phone] [id number] LOCATION: EMERGENCY DEPT EKG [id number] COMPL ETE:12/21/20 08:36 CJM [id number] PHYSICIAN: SHIVANI MENDEZ Name Value Range Interpretation Code Description Data Maura rce(s) Supporting Document(s) ID Date Data Source [id number] 12/22/2020 06:49:00 AM EST [facility] (Osmel Alvarez MD) Name Value Range Interpretation Code Description Data Maura rce(s) Supporting Document(s) Magnesium [Mass/volume] in Serum or Plasma 1.8 mg/dL 1.7-2.2 [facility] (Osmel Alvarez MD) ID Date Data Source [id number] 12/22/2020 06:49:00 AM EST [facility] (Osmel Alvarez MD) Name Value Range Interpretation Code Description Data Maura rce(s) Supporting Document(s) Laboratory test finding (navigational concept) 133 meq/L 1 34-153 Below low normal [facility] (Osmel Alvarez MD) Laboratory test finding (navigational concept) Laboratory test result [facility] (Osmel Alvarez MD) COMPREHENSIVE METABOLIC PANEL Laboratory test finding (navigational concept) 98 meq/L 98-107 [facility] (Osmel Alvarez MD) Laboratory test finding (navigational concept) 5.0 meq/L 3.6-5.0 [facility] (Osmel Alvarez MD) Laboratory test finding (navigational concept) 19 mg/dL 7-21 [facility] (Osmel Alvarez MD) Laboratory test finding (navigational concept) 30 meq/L 22-30 [facility] (Osmel Alvarez MD) Laboratory test finding (navigational concept) 147 mg/dL 7 0-99 Above high normal [facility] (Osmel Alvarez MD) Laboratory test finding (navigational concept) 0.8 mg/dL 0.7-1.5 [facility] (Osmel Alvarez MD) Laboratory test finding (navigational concept) 24 8-27 [facility] (Osmel Alvarez MD) Laboratory test finding (navigational concept) 6.1 g/dL 6 .3-8.2 Below low normal [facility] (Osmel Alvarez MD) Laboratory test finding (navigational concept) 2.9 GM/DL 2.4-3.2 [facility] (Osmel Alvarez MD) Laboratory test finding (navigational concept) 3.2 g/dL 3 .9-5.0 Below low normal [facility] (Osmel Alvarez MD) Laboratory test finding (navigational concept) 1.1 0.8-2.0 [facility] (Osmel Alvarez MD) Laboratory test finding (navigational concept) Laboratory test resu lt 0.2-1.3 [facility] (Osmel Alvarez MD) Laboratory test finding (navigational concept) 8.5 mg/dL 8.4-10.2 [facility] (Osmel Alvarez MD) Laboratory test finding (navigational concept) 40 U/L 7-56 [facility] (Osmel Alvarez MD) Laboratory test finding (navigational concept) 44 U/L 5-40 Above high normal [facility] (Osmel Alvarez MD) Laboratory test finding (navigational concept) 106 U/L 38-126 [facility] (Osmel Alvarez MD) Laboratory test finding (navigational concept) 5.0 mmol/L 8 .0-16.0 Below low normal [facility] (Osmel Alvarez MD) Laboratory test finding (navigational concept) 55 yrs [facility] (Osmel Alvarez MD) Laboratory test finding (navigational concept) Laboratory test result [facility] (Osmel Alvarez MD) Laboratory test finding (navigational concept) Laboratory test result [facility] (Osmel Alvarez MD) Male GFR Interprentation 20-49 yrs >60 mL/min Normal 50-59 yrs >56 mL/min Normal 60-69 yrs >49 mL/min Normal 70-79yrs >42 mL/min Normal 80 and above >35 mL/min Normal Female GFR Interpretation 20-39 yrs >60 mL/min Normal 40-49 yrs >58 mL/min Normal 50-59 yrs >51 mL/min Normal 60-69 yrs >45 mL/min Normal 70-79 yrs >39 mL/min Normal 80 and above >32 mL/min Normal ID Date Data Source [id number] 12/22/2020 06:49:00 AM EST [facility] (Osmel Alvarez MD) Name Value Range Interpretation Code Description Data Maura rce(s) Supporting Document(s) Laboratory test finding (navigational concept) Laboratory test result [facility] (Osmel Alvarez MD) COMPLETE BLOOD COUNT Laboratory test finding (navigational concept) 2.64 10^6/uL 4 .20-5.40 Below low normal [facility] (Osmel Alvarez MD) Laboratory test finding (navigational concept) 3.9 10^3/uL 4 .2-11.0 Below low normal [facility] (Osmel Alvarze MD) Laboratory test finding (navigational concept) 26.6 % 3 7.0-47.0 Below low normal [facility] (Osmel Alvarez MD) Laboratory test finding (navigational concept) 9.0 g/dL 1 2.0-16.0 Below low normal [facility] (Osmel Alvarez MD) Laboratory test finding (navigational concept) 100.8 fL 81.0-101 [facility] (Osmel Alvarez MD) Laboratory test finding (navigational concept) 34.1 pg 2 7.0-34.0 Above high normal [facility] (Osmel Alvarez MD) Laboratory test finding (navigational concept) 33.8 g/dL 31.0-36.0 [facility] (Osmel Alvarez MD) Laboratory test finding (navigational concept) 14.1 % 11.5-14.5 [facility] (Osmel Alvarez MD) Laboratory test finding (navigational concept) 221 10^3/uL 150-450 [facility] (Osmel Alvarez MD) Laboratory test finding (navigational concept) 71.5 % 37.0-80.0 [facility] (Osmel Alvarez MD) Laboratory test finding (navigational concept) 8.9 fL 7.4-10.4 [facility] (Osmel Alvarez MD) Laboratory test finding (navigational concept) 10.3 % 2 5.0-40.0 Below low normal [facility] (Osmel Alvarez MD) Laboratory test finding (navigational concept) 11.8 % 3.0-8.0 Above high normal [facility] (Osmel Avlarez MD) Laboratory test finding (navigational concept) 0.0 % 0.0-7.0 [facility] (Osmel Alvarez MD) Laboratory test finding (navigational concept) 0.0 % 0.0-2.5 [facility] (Osmel Alvarez MD) Laboratory test finding (navigational concept) 6.4 % 0.0-0.0 Above high normal [facility] (Osmel Alvarez MD) Laboratory test finding (navigational concept) 2.78 10^3/uL 2.00-6.90 [facility] (Osmel Alvarez MD) Laboratory test finding (navigational concept) 0.40 10^3/uL 0 .60-3.40 Below low normal [facility] (Osmel Alvarez MD) Laboratory test finding (navigational concept) 0.0 % 0.0-0.0 [facility] (Osmel Alvarez MD) Laboratory test finding (navigational concept) 0.00 10^3/uL 0.00-0.20 [facility] (Osmel Alvarez MD) Laboratory test finding (navigational concept) 0.46 10^3/uL 0.00-0.90 [facility] (Osmel Alvarez MD) Laboratory test finding (navigational concept) 0.00 10^3/uL 0.00-0.70 [facility] (Osmel Alvarez MD) Laboratory test finding (navigational concept) 0.00 10^3/uL 0.00-0.00 [facility] (Osmel Alvarez MD) Laboratory test finding (navigational concept) 0.25 10^3/uL 0 .00-0.10 Above high normal [facility] (Osmel Alvarez MD) Laboratory test finding (navigational concept) Laboratory test result [facility] (Osmel Alvarez MD) Laboratory test finding (navigational concept) 86 % 37-80 Above high normal [facility] (Osmel Alvarez MD) Laboratory test finding (navigational concept) 8 % 25-40 Below low normal [facility] (Osmel Alvarez MD) Laboratory test finding (navigational concept) 1 % [facility] (Osmel Alvarez MD) Laboratory test finding (navigational concept) Laboratory test result [facility] (Osmel Alvarez MD) Laboratory test finding (navigational concept) 6 % 3-8 [facility] (Osmel Alvarez MD) ID Date Data Source [id number] 12/22/2020 07:48:00 AM [facility] Name Value Range Interpretation Code Description Data Maura rce(s) Supporting Document(s) Magnesium [Mass/volume] in Serum or Plasma 1.8 MG/DL 1.7 - 2.2 [facility] ID Date Data Source [id number] 12/22/2020 07:48:00 AM [facility] Name Value Range Interpretation Code Description Data Maura rce(s) Supporting Document(s) COMPREHENSIVE METABOLIC PANEL [facility] COMPREHENSIVE METABOLIC PANEL Sodium [Moles/volume] in Serum or Plasma 133 mEq/L 134 - 153 L [facility] Potassium [Moles/volume] in Serum or Plasma 5.0 mEq/L 3.6 - 5.0 [facility] Chloride [Moles/volume] in Serum or Plasma 98 mEq/L 98 - 107 [facility] Carbon dioxide, total [Moles/volume] in Serum or Plasma 30 MEQ/L 22 - 30 [facility] Glucose [Mass/volume] in Serum or Plasma 147 MG/DL 70 - 99 H [facility] BUN 19 MG/DL 7 - 21 [facility] Creatinine [Mass/volume] in Serum or Plasma 0.8 MG/DL 0.7 - 1.5 [facility] BUN/CREAT 24 8 - 27 [facility] al Protein [Mass/volume] in Serum or Plasma 6.1 G/DL 6.3 - 8.2 L [facility] Albumin [Mass/volume] in Serum or Plasma 3.2 G/DL 3.9 - 5.0 L [facility] Globulin [Mass/volume] in Serum by calculation 2.9 GM/DL 2.4 - 3.2 [facility] A/G RATIO 1.1 0.8 - 2.0 [facility] al Calcium [Mass/volume] in Serum or Plasma 8.5 MG/DL 8.4 - 10.2 [facility] Bilirubin.total [Mass/volume] in Serum or Plasma <0.7 MG/DL 0.2 - 1.3 [facility] Alkaline phosphatase [Enzymatic activity/volume] in Serum or Plasma 106 U/L 38 - 126 [facility] Aspartate aminotransferase [Enzymatic activity/volume] in Serum or Plasma 44 U/L 5 - 40 H [facility] Alanine aminotransferase [Enzymatic activity/volume] in Seru m or Plasma 40 U/L 7 - 56 [facility] Anion gap 3 in Serum or Plasma 5.0 mmol/L 8.0 - 16.0 L [facility] AGE 55 yrs [facility] al NON-AA GFR >60 mL/min [facility] ital AFR AMER GFR >60 mL/min [facility] Ho spital Male GFR In terprentation 20-49 yrs >60 mL/min Normal 50-59 yrs >56 mL/min Normal 60-69 yrs >49 mL/min Normal 70-79yrs >42 mL/min Normal 80 and above >35 mL/min Normal Female GFR Interpretation 20-39 yrs >60 mL/min Normal 40-49 yrs >58 mL/min Normal 50-59 yrs >51 mL/min Normal 60-69 yrs >45 mL/min Normal 70-79 yrs >39 mL/min Normal 80 and above >32 mL/min Normal ID Date Data Source [id number] 12/22/2020 07:47:00 AM EST [facility] Name Value Range Interpretation Code Description Data Maura rce(s) Supporting Document(s) CBC W/AUTOMATED DIFF [facility] COMPLETE BLOOD COUNT Leukocytes [#/volume] in Blood by Automated count 3.9 10^3/uL 4.2 - 1 1.0 L [facility] Erythrocytes [#/volume] in Blood by Automated count 2.64 10^6/uL 4. 20 - 5.40 L [facility] Hemoglobin [Mass/volume] in Blood 9.0 g/dL 12.0 - 16.0 L [facility] Hematocrit [Volume Fraction] of Blood by Automated count 26.6 % 3 7.0 - 47.0 L [facility] Erythrocyte mean corpuscular volume [Entitic volume] b y Automated count 100.8 fL 81.0 - 101 [facility] Erythrocyte mean corpuscular hemoglobin [Entitic mass] by Automated count 34.1 pg 27.0 - 34.0 H [facility] Erythrocyte mean corpuscular hemoglobin concentration [Mass/volume] by Automated count 33.8 g/dL 31.0 - 36.0 [facility] Erythrocyte distribution width [Ratio] by Automated count 14.1 % 11.5 - 14.5 [facility] Platelets [#/volume] in Blood by Automated count 221 10^3/uL 150 - 45 0 [facility] Platelet mean volume [Entitic volume] in Blood by Automated count 8.9 fL 7.4 - 10.4 [facility] Neutrophils/100 leukocytes in Blood by Automated count 71.5 % 37. 0 - 80.0 [facility] Lymphocytes/100 leukocytes in Blood by Manual count 10.3 % 25.0 - 40.0 L [facility] Monocytes/100 leukocytes in Blood by Automated count 11.8 % 3.0 - 8.0 H [facility] Eosinophils/100 leukocytes in Blood by Automated count 0.0 % 0.0 - 7.0 [facility] Basophils/100 leukocytes in Blood by Automated count 0.0 % 0.0 - 2.5 [facility] %IG 6.4 % 0.0 - 0.0 [facility] %NRBC 0.0 % 0.0 - 0.0 [facility] al Neutrophils [#/volume] in Blood by Automated count 2.78 10^3/uL 2.00 - 6.90 [facility] Lymphocytes [#/volume] in Blood by Automated count 0.40 10^3/uL 0.60 - 3.40 L [facility] Monocytes [#/volume] in Blood by Automated count 0.46 10^3/uL 0.00 - 0.90 [facility] Eosinophils [#/volume] in Blood by Automated count 0.00 10^3/uL 0.00 - 0.70 [facility] Basophils [#/volume] in Blood by Automated count 0.00 10^3/uL 0.00 - 0.20 [facility] #IG 0.25 10^3/uL 0.00 - 0.[address] [facility]ital #NRBC 0.00 10^3/uL 0.00 - 0.00 [facility] MANUAL DIFF SEE BELOW [facility] Hosp ital Segmented neutrophils/100 leukocytes in Blood by Manual count 86 % 37 - 80 H [facility] %LYMPH 8 % 25 - [address] [facility] al %MONO 6 % 3 - 8 [facility] Nucleated erythrocytes/100 erythrocytes in Blood by Manual count 1 % [facility] RBC MORPH NOT INDICATED [facility] spital ID Date Data Source [id number] 12/21/2020 12:16:[address] [place] [address] RESPIRATORY CARE REPORT ==== ---------NAME------- NUMBER SEX AGE ADMIT DISC. XRAY# F/C OSMANILAMAMELIA CHANTALE Jeremiah [id number] F [id number] 12/20/20 [id number] B1 I/P DATE OF : 1965 M/R# [id number] #: [id number] LOCATION: EMERGENCY DEPT EKG [id number] COMPL ETE:12/20/20 14:53 CJM [id number] PHYSICIAN: SHIVANI AMAYA Name Value Range Interpretation Code Description Data Maura rce(s) Supporting Document(s) ID Date Data Source [id number] 12/21/2020 09:42:00 AM [address] [place] [address] PHONE: [phone] FAX: [phone] Name .................. : JUANITO Daniels Acct Number.................. : [id number] ROOM. ................. : CCU4 MR Number ................... : [id number] Stay type ............. : I/P Discharge Date......... ... : Admit Date ......... : 12/20/20 Admit Phys .................... : SHIVANI VANESSA Date of ....... : 1965 Family Phys ................... : SEQUEIRA Phone .................. : [phone] Age ................................ : 55 Film# .................. .:[id number] Sex ................................. : F Unsigned transcriptions are preliminary reports and do not represent a medical or legal document CT THORAX W/O CONTRAST [id number] COMPLETE:12/20/20 19:15 KATINA 4511 Reason(s): CHF CT SCAN OF THE CHEST WITHOUT CONTRAST: TECHNIQUE: CT scanning of the chest is performed without the use of intravenous contrast. COMPARISON: 11/24/20 FINDINGS: Again seen is consolidation of essentially the entire left upper lobe with ground glass opacity diffusely throughout the remaining aerated portion of the left lung. The ground glass opacity may have slightly worsened when compared to the prior examination, but the consolidated opacity is similar in appearance. There is a shift in the mediastinum to the left. There is otherwise mild right lower lobe subsegmental atelectasis and/or pleuroparenchymal scarring. There is what apparently is chronic pleural disease throughout the right hemithorax, especially medially adjacent to the mid-thoracic spine. There is no mediastinal or axillary adenopathy by CT size criteria. There is otherwise no significant change with a small pericardial effusion. There is again compression fracture of the mid-thoracic vertebral bodies with fixation hardware in place, as previous. There is a superior endplate fracture/Schmorl's node near L1, again not significantly changed from prior examination. IMPRESSION: Worsening left lower lobe pneumonia. No significant change in atelectasis of most of the left upper lobe. The etiology is not clearly defined, but a left hilar mass is not excluded. Correlate clinically. Consider bronchoscopy for further evaluation. A right-sided indwelling central venous catheter does remain in place. While performing the above CT examination, radiation dose reduction was accomplished utilizing automated exposure control, adjusting of the mA and kV based on the patient's body size and/or the use of imperative reconstructive techniques. Page 1 of 2 [place] [address] PHONE: [phone] FAX: [phone] Name .................. : JUANITO Daniels Acct Number.................. : [id number] ROOM. ................. : CCU4 Number ................... : [id number] Stay type ............. : I/P Discharge Date......... ... : Admit Date ......... : 12/20/20 Admit Phys .................... : SHIVANI MENDEZ Date of ....... : 1965 Family Phys ................... : SEQUEIRA Phone .................. : [phone] Age ................................ : 55 Film# .................. .:[id number] Sex ................................. : F Unsigned transcriptions are preliminary reports and do not represent a medical or legal document CT THORAX W/O CONTRAST [id number] COMPLETE:12/20/20 19:15 KATINA 4511 Reason(s): CHF CT dose: 550 mGycm Electronically Reviewed and Signed By Elier Rodríguez MD , 12/21/20 09:42, AML Transcribe Initials: REYES , Transcribe Date: 12/21/20 01:31, Dictation Date: Copy for: 002 [facility] Copy for: 710 MED REC Page 2 of 2 Name Value Range Interpretation Code Description Data Maura rce(s) Supporting Document(s) ID Date Data Source [id number] 12/21/2020 05:45:00 AM EST [facility] (Osmel Alvarez MD) Name Value Range Interpretation Code Description Data Maura rce(s) Supporting Document(s) Cobalamin (Vitamin B12) [Mass/volume] in Serum or Plasma 857 pg/mL 2 32-1245 [facility] (Osmel Alvarez MD) Iron [Mass/volume] in Serum or Plasma 50 ug/dL 42-135 [facility] (Osmel Alvarez MD) ID Date Data Source [id number] 12/21/2020 05:45:00 AM EST [facility] (Osmel Alvarez MD) Name Value Range Interpretation Code Description Data Mauar rce(s) Supporting Document(s) Laboratory test finding (navigational concept) Laboratory test result [facility] (Osmel Alvarez MD) COMPLETE BLOOD COUNT Laboratory test finding (navigational concept) 2.73 10^6/uL 4 .20-5.40 Below low normal [facility] (Osmel Alvarez MD) Laboratory test finding (navigational concept) 4.2 10^3/uL 4.2-11.0 [facility] (Osmel Alvarez MD) Laboratory test finding (navigational concept) 27.6 % 3 7.0-47.0 Below low normal [facility] (Osmel Alvarez MD) Laboratory test finding (navigational concept) 101.1 fL 8 1.0-101 Above high normal [facility] (Osmel Alvarez MD) Laboratory test finding (navigational concept) 9.4 g/dL 1 2.0-16.0 Below low normal [facility] (Osmel Alvarez MD) Laboratory test finding (navigational concept) 34.4 pg 2 7.0-34.0 Above high normal [facility] (Osmel Alvarez MD) Laboratory test finding (navigational concept) 34.1 g/dL 31.0-36.0 [facility] (Osmel Alvarez MD) Laboratory test finding (navigational concept) 14.3 % 11.5-14.5 [facility] (Osmel Alvarez MD) Laboratory test finding (navigational concept) 8.8 fL 7.4-10.4 [facility] (Osmel Alvarez MD) Laboratory test finding (navigational concept) 239 10^3/uL 150-450 [facility] (Osmel Alvarez MD) Laboratory test finding (navigational concept) 84.6 % 3 7.0-80.0 Above high normal [facility] (Osmel Alvarez MD) Laboratory test finding (navigational concept) 8.8 % 25.0-40 .0 Below low normal [facility] (Osmel Alvarez MD) Laboratory test finding (navigational concept) 5.2 % 3.0-8.0 [facility] (Osmel Alvarez MD) Laboratory test finding (navigational concept) 0.0 % 0.0-2.5 [facility] (Osmel Alvarez MD) Laboratory test finding (navigational concept) 0.0 % 0.0-7.0 [facility] (Osmel Alvarez MD) Laboratory test finding (navigational concept) 3.57 10^3/uL 2.00-6.90 [facility] (Osmel Alvarez MD) Laboratory test finding (navigational concept) 0.0 % 0.0-0.0 [facility] (Osmel Alvarez MD) Laboratory test finding (navigational concept) 1.4 % 0.0-0.0 Above high normal [facility] (Osmel Alvarez MD) Laboratory test finding (navigational concept) 0.00 10^3/uL 0.00-0.70 [facility] (Osmel Alvarez MD) Laboratory test finding (navigational concept) 0.37 10^3/uL 0 .60-3.40 Below low normal [facility] (Osmel Alvarez MD) Laboratory test finding (navigational concept) 0.22 10^3/uL 0.00-0.90 [facility] (Osmel Alvarez MD) Laboratory test finding (navigational concept) 0.06 10^3/uL 0.00-0.10 [facility] (Osmel Alvarez MD) Laboratory test finding (navigational concept) 0.00 10^3/uL 0.00-0.20 [facility] (Osmel Alvarez MD) Laboratory test finding (navigational concept) Laboratory test result [facility] (Osmel Alvarez MD) Laboratory test finding (navigational concept) 0.00 10^3/uL 0.00-0.00 [facility] (Osmel Alvarez MD) Laboratory test finding (navigational concept) 90 % 37-80 Above high normal [facility] (Osmel Alvarez MD) Laboratory test finding (navigational concept) 0 % 0-5 [facility] (Osmel Alvarez MD) Laboratory test finding (navigational concept) 2 % 3-8 Below low normal [facility] (Osmel Alvarez MD) Laboratory test finding (navigational concept) 8 % 25-40 Below low normal [facility] (Osmel Alvarez MD) Laboratory test finding (navigational concept) 0 % 0-2 [facility] (Osmel Alvarez MD) Laboratory test finding (navigational concept) 0 % 0-7 [facility] (Osmel Alvarez MD) Laboratory test finding (navigational concept) Laboratory test result [facility] (Osmel Alvarez MD) ID Date Data Source [id number] 12/21/2020 05:45:00 AM EST [facility] (Osmel Alvarez MD) Name Value Range Interpretation Code Description Data Maura rce(s) Supporting Document(s) Laboratory test finding (navigational concept) Laboratory test result [facility] (Osmel Alvarez MD) COMPREHENSIVE METABOLIC PANEL Laboratory test finding (navigational concept) 135 meq/L 134-153 [facility] (Osmel Alvarez MD) Laboratory test finding (navigational concept) 4.9 meq/L 3.6-5.0 [facility] (Osmel Alvarez MD) Laboratory test finding (navigational concept) 29 meq/L 22-30 [facility] (Osmel Alvarez MD) Laboratory test finding (navigational concept) 98 meq/L 98-107 [facility] (Osmel Alvarez MD) Laboratory test finding (navigational concept) 144 mg/dL 7 0-99 Above high normal [facility] (Osmel Alvarez MD) Laboratory test finding (navigational concept) 19 8-27 [facility] (Osmel Alvarez MD) Laboratory test finding (navigational concept) 0.8 mg/dL 0.7-1.5 [facility] (Osmel Alvarez MD) Laboratory test finding (navigational concept) 15 mg/dL 7-21 [facility] (Osmel Alvarez MD) Laboratory test finding (navigational concept) 3.2 g/dL 3 .9-5.0 Below low normal [facility] (Osmel Alvarez MD) Laboratory test finding (navigational concept) 5.6 g/dL 6 .3-8.2 Below low normal [facility] (Osmel Alvarez MD) Laboratory test finding (navigational concept) 2.4 GM/DL 2.4-3.2 [facility] (Osmel Alvarez MD) Laboratory test finding (navigational concept) Laboratory test resu lt 0.2-1.3 [facility] (Osmel Alvarez MD) Laboratory test finding (navigational concept) 1.3 0.8-2.0 [facility] (Osmel Alvarez MD) Laboratory test finding (navigational concept) 8.7 mg/dL 8.4-10.2 [facility] (Osmel Alvarez MD) Laboratory test finding (navigational concept) 19 U/L 5-40 [facility] (Osmel Alvarez MD) Laboratory test finding (navigational concept) 102 U/L 38-126 [facility] (Osmel Alvarez MD) Laboratory test finding (navigational concept) 8.0 mmol/L 8.0-16.0 [facility] (Osmel Alvarez MD) Laboratory test finding (navigational concept) 55 yrs [facility] (Osmel Alvarez MD) Laboratory test finding (navigational concept) 17 U/L 7-56 [facility] (Osmel Alvarez MD) Laboratory test finding (navigational concept) Laboratory test result [facility] (Osmel Alvarez MD) Laboratory test finding (navigational concept) Laboratory test result [facility] (Osmel Alvarez MD) Male GFR Interprentation 20-49 yrs >60 mL/min Normal 50-59 yrs >56 mL/min Normal 60-69 yrs >49 mL/min Normal 70-79yrs >42 mL/min Normal 80 and above >35 mL/min Normal Female GFR Interpretation 20-39 yrs >60 mL/min Normal 40-49 yrs >58 mL/min Normal 50-59 yrs >51 mL/min Normal 60-69 yrs >45 mL/min Normal 70-79 yrs >39 mL/min Normal 80 and above >32 mL/min Normal ID Date Data Source [id number] 12/21/2020 05:45:00 AM EST [facility] (Osmel Alvarez MD) Name Value Range Interpretation Code Description Data Maura rce(s) Supporting Document(s) Magnesium [Mass/volume] in Serum or Plasma 2.1 mg/dL 1.7-2.2 [facility] (Osmel Alvarez MD) ID Date Data Source [id number] 12/21/2020 10:24:00 AM [facility] Name Value Range Interpretation Code Description Data Muara rce(s) Supporting Document(s) Cobalamin (Vitamin B12) [Mass/volume] in Serum or Plasma 857 PG/ML 232 - 1245 [facility] ID Date Data Source [id number] 12/21/2020 10:12:00 AM [facility] Name Value Range Interpretation Code Description Data Maura rce(s) Supporting Document(s) Iron [Mass/volume] in Serum or Plasma 50 UG/DL 42 - 135 [facility] ID Date Data Source [id number] 12/21/2020 07:03:00 AM EST [facility] Name Value Range Interpretation Code Description Data Maura rce(s) Supporting Document(s) CBC W/AUTOMATED DIFF [facility] COMPLETE BLOOD COUNT Leukocytes [#/volume] in Blood by Automated count 4.2 10^3/uL 4.2 - 1 1.0 [facility] Erythrocytes [#/volume] in Blood by Automated count 2.73 10^6/uL 4. 20 - 5.40 L [facility] Hemoglobin [Mass/volume] in Blood 9.4 g/dL 12.0 - 16.0 L [facility] Hematocrit [Volume Fraction] of Blood by Automated count 27.6 % 3 7.0 - 47.0 L [facility] Erythrocyte mean corpuscular volume [Entitic volume] b y Automated count 101.1 fL 81.0 - 101 H [facility] Erythrocyte mean corpuscular hemoglobin [Entitic mass] by Automated count 34.4 pg 27.0 - 34.0 H [facility] Erythrocyte mean corpuscular hemoglobin concentration [Mass/volume] by Automated count 34.1 g/dL 31.0 - 36.0 [facility] Erythrocyte distribution width [Ratio] by Automated count 14.3 % 11.5 - 14.5 [facility] Platelets [#/volume] in Blood by Automated count 239 10^3/uL 150 - 45 0 [facility] Platelet mean volume [Entitic volume] in Blood by Automated count 8.8 fL 7.4 - 10.4 [facility] Neutrophils/100 leukocytes in Blood by Automated count 84.6 % 37. 0 - 80.0 H [facility] Lymphocytes/100 leukocytes in Blood by Manual count 8.8 % 25.0 - 40.0 L [facility] Monocytes/100 leukocytes in Blood by Automated count 5.2 % 3.0 - 8.0 [facility] Eosinophils/100 leukocytes in Blood by Automated count 0.0 % 0.0 - 7.0 [facility] 0.0 %IG 1.4 % 0.0 - 0.[address] [facility] %NRBC 0.0 % 0.0 - [facility] Neut[facility] [#/volume] in Blood by Automated count 3.57 10^3/uL 2.00 - 6.90 [facility] Lymphocytes [#/volume] in Blood by Automated count 0.37 10^3/uL 0.60 - 3.40 L [facility] Monocytes [#/volume] in Blood by Automated count 0.22 10^3/uL 0.00 - 0.90 [facility] Eosinophils [#/volume] in Blood by Automated count 0.00 10^3/uL 0.00 - 0.70 [facility] Basophils [#/volume] in Blood by Automated count 0.00 10^3/uL 0.00 - 0.20 [facility] #IG 0.06 10^3/uL 0.00 - 0.10 [facility] #NRBC 0.00 10^3/uL 0.00 - 0.00 [facility] ospital MANUAL DIFF SEE BELOW [facility] ital Segmented neutrophils/100 leukocytes in Blood by Manual count 90 % 37 - 80 H [facility] BAND 0 % 0 - 5 [facility] al %LYMPH 8 % 25 - 40 [facility] %MONO 2 % 3 - 8 [facility] %EOS 0 % 0 - 7 [facility] [address] RBC MORPH NOT INDICATED [facility] ID Date Data Source [id number] 12/21/2020 07:01:00 AM EST [facility] Name Value Range Interpretation Code Description Data Maura rce(s) Supporting Document(s) COMPREHENSIVE METABOLIC PANEL [facility] COMPREHENSIVE METABOLIC PANEL Sodium [Moles/volume] in Serum or Plasma 135 mEq/L 134 - 153 [facility] Potassium [Moles/volume] in Serum or Plasma 4.9 mEq/L 3.6 - 5.0 [facility] Chloride [Moles/volume] in Serum or Plasma 98 mEq/L 98 - 107 [facility] Carbon dioxide, total [Moles/volume] in Serum or Plasma 29 MEQ/L 22 - 30 [facility] Glucose [Mass/volume] in Serum or Plasma 144 MG/DL 70 - 99 H [facility] BUN 15 MG/DL 7 - 21 [facility] al Creatinine [Mass/volume] in Serum or Plasma 0.8 MG/DL 0.7 - 1.5 [facility] BUN/CREAT 19 8 - 27 [facility] al Protein [Mass/volume] in Serum or Plasma 5.6 G/DL 6.3 - 8.2 L [facility] Albumin [Mass/volume] in Serum or Plasma 3.2 G/DL 3.9 - 5.0 L [facility] Globulin [Mass/volume] in Serum by calculation 2.4 GM/DL 2.4 - 3.2 [facility] A/G RATIO 1.3 0.8 - 2.0 [facility] Calcium [Mass/volume] in Serum or Plasma 8.7 MG/DL 8.4 - 10.2 [facility] Bilirubin.total [Mass/volume] in Serum or Plasma <0.7 MG/DL 0.2 - 1.3 [facility] Alkaline phosphatase [Enzymatic activity/volume] in Serum or Plasma 102 U/L 38 - 126 [facility] Aspartate aminotransferase [Enzymatic activity/volume] in Serum or Plasma 19 U/L 5 - 40 [facility] Alanine aminotransferase [Enzymatic activity/volume] in Seru m or Plasma 17 U/L 7 - 56 [facility] Anion gap 3 in Serum or Plasma 8.0 mmol/L 8.0 - 16.0 [facility] AGE 55 yrs [facility] NON-AA GFR >60 mL/min [facility] ital AFR AMER GFR >60 mL/min [facility] spital Male GFR In terprentation 20-49 yrs >60 mL/min Normal 50-59 yrs >56 mL/min Normal 60-69 yrs >49 mL/min Normal 70-79yrs >42 mL/min Normal 80 and above >35 mL/min Normal Female GFR Interpretation 20-39 yrs >60 mL/min Normal 40-49 yrs >58 mL/min Normal 50-59 yrs >51 mL/min Normal 60-69 yrs >45 mL/min Normal 70-79 yrs >39 mL/min Normal 80 and above >32 mL/min Normal ID Date Data Source [id number] 12/21/2020 06:56:00 AM [facility] Name Value Range Interpretation Code Description Data Maura rce(s) Supporting Document(s) Magnesium [Mass/volume] in Serum or Plasma 2.1 MG/DL 1.7 - 2.2 [facility] ID Date Data Source [id number] 12/20/2020 10:53:00 AM [facility] 1 OrderSheet [facility] Emergency Department [address] [place] [address] Phone #: ext- [phone] 12/20/2020 10:48 Patient: CHANTALE SOLOMON Sex: F : 1965 Age: 55yWEIGHT:80.2 kg (M) HEIGHT:60 inches (S) BMI:34.5ALLERGIES: Penicillins, SeafoodCHIEF COMPLAINT: dyspnea, CHF, wheezingDIAGNOSIS: PneumoniaLAB ORDERSOrder Description Priority Entered Acknowledged InitialedCBC w Diff STAT 11:12/20/2020 11:34 Chau Bower R.N.;BNP STAT 11:12/20/2020 11:34 Chau Bower R.N.;CMP STAT 11:12/20/2020 11:34 Chau Bower R.N.;D-Dimer STAT 11:12/20/2020 11:34 Chau Bower R.N.;Influenza Nasal A B STAT 11:12/20/2020 11:53 Chau Bower R.N.;Lactic Acid STAT 11:12/20/2020 11:34 Chau Bower R.N.;Troponin-T STAT 11:12/20/2020 11:34 Chau Bower R.N.;Urinalysis (Clean STAT 11:09 1Catch) Chau Amaya PA;COVID-19 CAH STAT 11:09 12/20/2020 11:53 Sathish,(Symptomatic as Chau Chuassica R.N.Defined by CDC) PA;(11/24/2020) (NotFirst Test) (NotHospitalized) (Not) (NotResident in 2 OrderSheet [facility] Emergency Department [address] [place] [address] Phone #: ext- [phone] 12/20/2020 10:48 Patient: CHANTALE SOLOMON Sex: F : 1965 Age: 55yCongregate CareSetting) (NotEmployed inHealthcare Setting)Blood Culture STAT 13:31 12/20/2020 13:50 Sathish,q10m X2 (Sched Chau Chuassica R.N.13:31 12/20/2020) PA;Blood Culture STAT 13:31 12/20/2020 13:50 Sathish,q10m X2 (Sched Chau Chuassica R.N.13:41 12/20/2020) PA;CORONAVIRUS STAT 13:31 12/20/2020 14:02 SathishCOVID-19 Chau Miranda R.N.(Symptomatic as PA;Defined by CDC)(11/24/2020) (NotFirst Test)(Hospitalized) (Not) (NotResident inCongregate CareSetting) (NotEmployed inHealthcare Setting)Culture, Sputum STAT 13:37 12/20/2020 13:50 Chau Bowerssica R.N. PA;DIAGNOSTIC STUDY ORDERSOrder Description Priority Entered Acknowledged InitialedCT Chest W/O Cont STAT 11:09 12/20/2020 12:03 Sathish,(Oxygen?(No)) Chau Miranda R.N. PA; NOTES: previous covid pn Reason for Study: CHF, Shortness of BreathMEDICATION/IV/DRIP/FLUID ORDERSOrder Description Priority Entered Acknowledged InitialedNS IV 75 mL/hr: : 75 11:09 12/20/2020 11:37 Sathish,mL/hr Chau Miranda R.N. PA;Albuter ol/Ipratropiu 11:09 12/20/2020 11:36 Sathish,m 3 mL X2 Doses Chau GuthrieNKellen(Filtered): 6 mL (3 PA;mL X2 Doses) 3 OrderSheet [facility] Emergency Department [address] [place] [address] Phone #: ext- [phone] 12/20/2020 10:48 Patient: CHANTALE SOLOMON Sex: F : 1965 Age: 55yDexamethasone 11:09 12/20/2020 11:36 Sathish,IVP 10mg Chau Miranda R.N. PA;Rocephin 12:52 12/20/2020 13:16 Sathish,(1gm/50mL) IVPB Chau Miranda R.NKellen1000 mg with PA;De xtrose 50 mlspike bag (D5W) Reason for ordering with alerts: Clinical consideration given -- 12:52 12/20/2020 Chau Amaya PAAzithromycin IVPB 12:52 12/20/2020 13:50 Sathish,500 mg X1 Dose: Chau Chuassica R.N.500 mg with PA;DextroseIntravenous 250 mL(NOW x1) Reason for ordering with alerts: Clinical consideration given -- 12:52 12/20/2020 Chau Amaya PATylenol PO 1000 13:31 12/20/2020 13:58 mg Chau Bower R.N.;GENERAL ORDERSOrder Description Priority Entered Acknowledged InitialedEKG 11:12/20/2020 11:53 Chau Bower R.N.;Security Support Analyst 11:12/20/2020 11:34 Sathish(continuous) Chau LOPEZ;Oxygen titrate to 11:12/20/2020 11:34 Sathish,92% Chau LOPEZ;Pulse Oximetry 11:12/20/2020 11:34 Sathish,Justa LOPEZ;Filtered Nebulizer 11:12/20/2020 11:34 Chau Bower R.N.;[Electronically signed by Ruth Bower R.N. (15:11 12/20/2020)][Electronically signed by Chau Amaya (21:07 12/20/2020)][Electronically locked by Ruth Bower R.N. (15:11 12/20/2020)] Name Value Range Interpretation Code Description Data Maura rce(s) Supporting Document(s) ID Date Data Source [id number] 12/20/2020 10:53:00 AM EST [facility] 1 Medication Reconciliation Report [facility] Emergency Department [address] [place] [address] Phone #: ext- [phone] 12/20/2020 10:48 Patient: CHANTALE SOLOMON Sex: F : 1965 Age: 55yWeight: 80.2 kgHeight/Length: 60 in.BMI: 34.5ALLERGIES: Penicillins, SeafoodThe patient's Home Medications are listed below:THE FOLLOWING MEDICATIONS NEED TO BE RECONCILED: Aspirin Oral 81 mg, daily Breo Ellipta Inhalation 1 puff, daily Bystolic Oral (5 mg) 1 tablet, daily dilTIAZem HCl Oral 180 mg, daily, at bedtime Folic Acid Oral (800 mcg) 1 tablet, daily Furosemide Oral 20 mg, daily Magnesium Oral 1000mg , daily Pantoprazole Sodium Oral 40 mg, daily Potassium Oral 10 meq, 2x a day Spiriva HandiHaler Inhalation 2 puffs, daily Xarelto Oral (10 mg) 1 tablet, dailyThe source(s) of the original Home Medication information:patientThe following Medications were given to the patient in the Emergency Department:Albuterol [Neb Tx] Neb TX 5 mg, administered: 11:30 12/20/2020 2 Medication Reconciliation Report [facility] Emergency Department [address] [place] [address] Phone #: ext- [phone] 12/20/2020 10:48 Patient: CHANTALE SOLOMON Sex: F : 1965 Age: 55yDexamethasone [IVP] IVP 10 mg, administered: 11:36 12/20/2020NS [IV] IV Fluids bolus 0, then 75 mL/hr, administered: 11:37 12/20/2020OCEPHIN (1GM/50ML) [IVPB] IVPB bolus 0, then 1000 mg 100 mL/hr, administered: 13:16 12/20/2020zithromycin [IVPB] IVPB bolus 0, then 500 mg 250 mL/hr, administered: 13:50 12/20/2020Tylenol [PO] PO 1000 mg, administered: 13:58 12/20/2020The following Medications were prescribed to the patient:None. Name Value Range Interpretation Code Description Data Maura rce(s) Supporting Document(s) ID Date Data Source [id number] 12/20/2020 10:53:00 AM EST [facility] 1 Medication Administration Record [facility] Emergency Department [address] [place] [address] Phone #: ext- [phone] 12/20/2020 10:48 Patient: CHANTALE SOLOMON Sex: F : 1965 Age: 55yWeight: 80.2 kgHeight/Length: 60 inBMI: 34.5ALLERGIES: Penicillins, Seafood Date/Time Medication Administered Medication OrderedStart NS [IV] NS IV 75 mL/hr: : 75 mL/hr11:37 12/20/2020 Dose: IV FluidsRuth Bower, R.NKellen Rate: 75 mL/hr---- Dispensed: 75 mL bagStop Site: #1 right AC14:45 12/20/2020Ruth Bower, R.N.Given ALBUTEROL [NEB TX] Albuterol/Ipratropium 3 mL X211:30 12/20/2020 Dose: 5 mg Nebulizer Neb TX Doses (Filtered): 6 mL (3 mL X4JxvffRuth Bower, R.N. Doses)----Stop11:45 12/20/2020Ruth Bower, R.N.Given DEXAMETHASONE [IVP] Dexamethasone IVP 10mg11:36 12/20/2020 Dose: 10 mg IVPRuth Bower, R.N. Site: #1 right ACStart ROCEPHIN (1GM/50ML) [IVPB] Rocephin (1gm/50mL) IVPB 637480:16 12/20/2020 (CEFTRIAXONE SODIUM) mg with Dextrose 50 ml spike Ruth Dubose, R.N. Dose: 1000 mg IVPB (D5W)---- Rate: 100 mL/hr over 30 minute(s)Stop Dispensed: 50 mL bag13:50 12/20/2020 Site: #1 right Ruth Frausto, R.NKellenStart AZITHROMYCIN [IVPB] Azithromycin IVPB 500 mg X113:50 12/20/2020 Dose: 500 mg IVPB Dose: 500 mg with DextroseRuth Bower RMikel Rate: 250 mL/hr over 60 minute(s) Intravenous 250 mL (NOW x1)---- Site: #1 right IYHxsy07:59 12/20/2020Ruth Bower R.NKellenGiven TYLENOL [PO] (APAP) Tylenol PO 1000 mg1 3:58 12/20/2020 Dose: 1000 mg Tablets Ruth Dejesus R.NKellen Name Value Range Interpretation Code Description Data Maura rce(s) Supporting Document(s) ID Date Data Source [id number] 12/20/2020 10:53:00 AM [facility] 1 General Instructions [facility] Emergency Department [address] [place] [address] Phone #: ext- [phone] 12/20/2020 10:48 Patient: CHANTALE SOLOMON Sex: F : 1965 Age: 55yLobar pneumonia.(Electronically signed by JOHN Yao 12/20/2020 21:07) Name Value Range Interpretation Code Description Data Maura rce(s) Supporting Document(s) ID Date Data Source [id number] 12/20/2020 10:53:00 AM [facility] 1 Clinical Report - Nurses [facility] Emergency Department [address] [place] [address] Phone #: ext- [phone] 12/20/2020 10:48 Patient: CHANTALE SOLOMON Sex: F : 1965 Age: 55yTRIAGEArrived by private vehicle. Historian: patient. Unaccompanied.Triage time: late entry - 10:47 12/20/2020. Acuity: LEVEL 3.Chief Complaint: COUGH and WHEEZING.Alert.( Pt was admitted to this facility in [facility] on 11/24/2020 with COVID pneumonia, and has finished quarantine. Pt was discharged on 11/29/2020 and still had some wheezing but was told it would clear. Pt statessince then she has had worsening wheezing, cough, rales. 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 Steel via [facility]. Pt wears chronic 2L O2). 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 Symptoms did not improve after treatment. Seen within the last 30 days in amedical facility.SEPSIS SCREEN: SIRS SCREEN NEGATIVE: heart rate greater than 90. SEPSIS SCREEN NEGATIVE.No suspected or confirmed signs of infection present. --10:58 12/20/20 Meghann Asher R.N.10:51 12/20/20. BP: 108/82. MAP: 90. HR: 91. RR: 20. O2 saturation: 98% on nasal cannula at 2liters/minute. Temp: 100 F (oral). Pain level now: 5/10. --10:58 12/20/20 Meghann Asher R.N.Weight: 80.2 kg measured. Height/Length: 60 inches Per Patient. BMI: 34.5. --10:58 12/20/20 Meghann Asher R.N.MedicationsAspirin Oral 81 mg, daily. --10:56 12/20/20 Meghann Asher R.N. Breo Ellipta Inhalation 1 puff, daily. Bystolic Oral (Tablet 5 mg) 1 tablet, daily. dilTIAZem HCl Oral 180 mg, daily at bedtime. Folic Acid Oral (Tablet 800 mcg) 1 tablet, daily. Furosemide Oral 20 mg, daily. Magnesium Oral 1000mg , daily. Pantoprazole Sodium Oral 40 mg, daily. Potassium Oral 10 meq, 2x a day. Spiriva HandiHaler Inhalation 2 puffs, daily. Xarelto Oral (Tablet 10 mg) 1 tablet, daily. --10:56 12/20/20 Meghann Asher R.N.Allergies 2 Clinical Report - Nurses [facility] Emergency Department [address] [place] [address] Phone #: ext- [phone] 12/20/2020 10:48 Patient: CHANTALE SOLOMON Sex: F : 1965 Age: 55yPenicillins.Seafood. --10:56 12/20/20 Meghann Asher R.N.Medication/allergy information source: the patient. --10:58 12/20/20 Meghann Asher R.N.ADDITIONAL SURGERIES:Appendectomy.Back Surgery (Rods in t spine, crushed t7 t8).Dilatation Curettage.Foot surgery.Heel spur.Right heel spur.Septoplasty.Septoplasty.Tonsillectomy.Tubal Ligation. --10:56 12/20/20 Meghann Asher R.N.HistoryPAST MEDICAL HX: Immunizations: up-to-date. The p atient is post-menopausal.SOCIAL HX: Former smoker. No alcohol use or drug use. The patient was offered HIV testing butdeclined. Patient education was provided. The patient was offered hepatitis C testing but declined. Patienteducation was provided. ( Pt was COVID positive last admission 11/24/20; Pt still has cough, low gradetemp). The patient has not traveled outside the [place]Infectious disease exposure: No infectious disease exposure. The patient was exposed to Coronavirus.Mask placed on patient. Patient taken to isolation room. Patient is not a known carrier of tuberculosis,hepatitis, HIV, MRSA or VRE. Patient is not a known carrier of CRE.SELF HARM ASSESSMENT: Self harm assessment was performed. The patient answered "no" to thequestion(s) "Do you have thoughts of harming or killing yourself?" and "Do you have a plan for harming orkilling yourself?".ABUSE ASSESSMENT: Abuse assessment. The patient had positive responses to the question(s) "Do youfeel safe in your home?". Abuse denied. No suspicion of abuse. No report of abuse.NUTRITIONAL RISK ASSESSMENT: The nutritional risk assessment revealed no deficiencies.FUNCTIONAL ASSESSMENT: Functional assessment: no impairments noted.LEARNING NEEDS ASSESSMENT: The learning needs assessment revealed no barriers.FALL RISK ASSESSMENT: Fall risk assessment completed. No risk factors identified.SKIN INTEGRITY ASSESSMENT: Skin integrity risk assessment completed. No skin integrity riskidentified. --10:58 12/20/20 Meghann Asher R.N. 3 Clinical Report - Nurses [facility] Emergency Department [address] [place] [address] Phone #: ext- [phone] 12/20/2020 10:48 Patient: CHANTALE SOLOMON Sex: F : 1965 Age: 55y Interventions Identification band on patient. --10:58 12/20/20 Meghann Asher R.N.PHYSICAL ASSESSMENTPatient gowned.GENERAL / NEURO / PSYCH: Alert. Oriented X 4. Appears in no acute distress.HEENT: Pupils equal, round and reactive to light.RESPIRATORY: Mild respiratory distress. Accessory muscle use. Cough productive of yellow sputum.Wheezing present. Rhonchi present.CVS: Normal sinus rhythm noted. Capillary refill less than 2 seconds.SKIN: Skin is warm and dry. --12:06 12/20/20 Ruth Bower R.N.NURSING PROGRESS NOTES11:30 12/20/2020 Albuterol Neb TX Nebulizer 5 mg given. Given by the nurse. Allergies verified andconfirmed 5 rights. Information reviewed with patient. --11:36 12/20/20 Ruth Bower R.N. 11:36 12/20/2020 Site #1 started via IV in the right antecubital space with an 20g angiocath, with aseptic technique; one attempt. Blood drawn: alessio pedraza. Saline lock flushed with 10 mL saline. --11:36 12/20/20 Ruth Bower R.N. 11:36 12/20/2020 Dexamethasone IVP 10 mg given over 2 minute(s) via site #1. Allergies verified and confirmed 5 rights. IV patency established. IV site checked: no pain, redness, or swelling. IV flushed thoroughly pre- and post-medication administration. IVP given by RN. --11:36 12/20/20 Ruth Bower R.N. 11:37 12/20/2020 Started bag #1 75 mL IV Fluids NS; at 75 mL/hr via site #1 via IV pump. Allergies verified and confirmed 5 rights. IV patency established. IV site checked: no pain, redness, or swelling. IV flushed thoroughly pre- and post-medication administration. Information reviewed with patient. --11:37 12/20/20 Ruth Bower R.N. 11:38 12/20/20. Monitoring of patient in place. Patient gowned. Head of bed elevated. Reassurance given. Call light placed in reach. Bed placed in lowest position. Brakes of bed on. Patient ready for evaluation. --12:03 12/20/20 Ruth Bower R.N. Flu swab obtained by RN via nasal swab. Sent to lab. --12:03 12/20/20 Ruth Bower R.N. Patient ID band checked. Blood samples drawn by nurse: alessio pedraza. --12:04 12/20/20 Ruth Bower R.N. EKG time: (11:59 12/20/2020). EKG was performed by a nurse. --12:04 12/20/20 Ruth Bower R.N. 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 --12:04 12/20/20 Ruth Bower R.N. 4 Clinical Report - Nurses [facility] Emergency Department [address] [place] [address] Phone #: ext- [phone] 12/20/2020 10:48 Patient: CHANTALE SOLOMON Sex: F : 1965 Age: 55y 13:16 12/20/2020 Started 1000 mg of ROCEPHIN (1GM/50ML) (cefTRIAXone Sodium) IVPB in bag #1 50 mL; at 100 mL/hr over 30 minute(s) via site #1. via IV pump. Allergies verified and confirmed 5 rights. IV patency established. IV site checked: no pain, redness, or swelling. IV flushed thoroughly pre- and post-medication administration. Information reviewed with patient. --13:16 12/20/20 Ruth Bower R.N. 13:16 12/20/20. BP: 105/69. MAP: 81. HR: 95. RR: 22. O2 saturation: 99% on nasal cannula at 2 liters/minute. Temp: 97.8 F. Pain level now: 12/13. --13:17 12/20/20 Ruth Bower R.N. Reassessment after medication administered, fluids administered and intervention. She is calm. Overall patient status is improved- she states feels better. RESPIRATORY: No respiratory distress. --13:17 12/20/20 Ruth Bower R.N. 13:50 12/20/2020 Started 500 mg of Azithromycin IVPB; at 250 mL/hr over 60 minute(s) via site #1. via IV pump. Allergies verified and confirmed 5 rights. IV patency established. IV site checked: no pain, redness, or swelling. IV flushed thoroughly pre- and post-medication administration. Information reviewed with patient. Verbalizes understanding. --13:50 12/20/20 Ruth Bower R.N. 13:50 12/20/2020 ROCEPHIN (1GM/50ML) IVPB via IV site #1 Discontinued: completed. Total amount infused: 50 mL. IV patency established. IV site checked: no pain, redness, or swelling. IV flushed thoroughly. --13:50 12/20/20 Ruth Bower R.N. 13:58 12/20/2020 Tylenol (APAP) PO Tablets 1000 mg given. Allergies verified and confirmed 5 rights. Information reviewed with patient. -- 13:58 12/20/20 Ruth Bower R.N. Rounding: Pain: assessed pain level (12/13). The patient reports no complaints and she is calm and resting quietly. Overall patient status is improved- she states feels better. --14:14 12/20/20 Ruth Bower R.N. 11:45 12/20/2020 Albuterol Neb TX discontinued due to improvement in patient condition. --15:11 12/20/20 Ruth Bower R.N. 14:45 12/20/2020 IV Fluids NS via IV site #1 Discontinued: upon admission. Total amount infused: 200 mL. IV patency established. IV site checked: no pain, redness, or swelling. IV flushed thoroughly. --15:10 12/20/20 Ruth Bower R.N. 14:59 12/20/2020 Azithromycin IVPB via IV site #1 Discontinued: completed. Total amount infused: 250 mL. IV patency established. IV site checked: no pain, redness, or swelling. IV flushed thoroughly. --15:10 12/20/20 Ruth Bower R.N.DISPOSITION / DISCHARGE 14:20 12/20/20. BP: 112/75 taken while sitting. MAP: 87. HR: 86. RR: 20. O2 saturation: 99% on nasal cannula at 2 liters/minute. Temp: 98.9 F. Pain level now: 12/13. --14:21 12/20/20 Ruth Bower R.N. 5 Clinical Report - Nurses [facility] Emergency Department [address] [place] [address] Phone #: ext- [phone] 12/20/2020 10:48 Patient: CHANTALE SOLOMON Sex: F : 1965 Age: 55y 14:45 12/20/20. Admitted to the Acute Inpatient Unit, Monitored. Transported via stretcher by nurse with monitor, IV, O2 and mask. Report was given. (NEY). Bed obtained and ready. Patient's personal items include: shirt, pants and shoes; items were placed in belongings bag and transported with the patient. --15:09 12/20/20 Ruth Bwoer R.N. Departure time: 14:45 12/20/2020. --15:11 12/20/20 Ruth Bower R.N.Locked/Released at 12/20/2020 15:11 by Ruth Bower R.N. Name Value Range Interpretation Code Description Data Maura rce(s) Supporting Document(s) ID Date Data Source [id number] 12/20/2020 10:53:00 AM [facility] 1 Clinical Report - Physicians/Mid Levels [facility] Emergency Department [address] [place] [address] Phone #: ext- [phone] 12/20/2020 10:48 Patient: CHANTALE SOLOMON Sex: F : 1965 Age: 55y Time Seen: 10:50 12/20/2020. Arrived- By private vehicle. Historian- patient.HISTORY OF PRESENT ILLNESS Chief Complaint: DYSPNEA and HISTORY OF CONGESTIVE HEART FAILURE and WHEEZING Cough. This started 11/24; Pt was admitted to this facility in [place] on 11/24/2020 with COVID pneumonia, and has finished quarantine . Pt was discharged on 11/29/2020 and still had some wheezing but was told it would clear. Pt states since then she has had worsening wheezing, cough, rales. 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 Steel via [facility]. Pt wears chronic 2L O2). ( Pt finished d/c antbx, believed to be levaquin). and is still present. It was gradual in onset and has been constant. The dyspnea is described as moderate and is worsened by walking, exertion and cough, is improved by rest and is improved with oxygen. The patient has had sputum production, a cough, wheezing and dyspnea on exertion. No fever, sweating episodes, chills or chest pain or discomfort. No calf pain, foot swelling, orthopnea, paroxysmal nocturnal dyspnea or anxiety. No dizziness, tingling, numbness or palpitations. Similar symptoms previously. Patient has had similar symptoms several times. Recent medical care: The patient was seen recently at this facility and hospitalized.PAST HISTORYAdditional Surgeries:Appendectomy.Back Surgery. (Rods in t spine, crushed t7 t8)Dilatation Curettage.Foot surgery.Heel spur.Right heel spur.Septoplast y.Septoplasty.Tonsillectomy.Tubal Ligation. Medications: Breo Ellipta Inhalation 1 puff, daily. Bystolic Oral (Tablet 5 mg) 1 tablet, daily. dilTIAZem HCl Oral 180 mg, daily at bedtime. Folic Acid Oral (Tablet 800 mcg) 1 tablet, daily. Furosemide Oral 20 mg, daily. Magnesium Oral 1000mg , daily. Pantoprazole Sodium Oral 40 mg, daily. 2 Clinical Report - Physicians/Mid Levels [facility] Emergency Department [address] [place] [address] Phone #: ext- [phone] 12/20/2020 10:48 Patient: CHANTALE SOLOMON Sex: F : 1965 Age: 55y Potassium Oral 10 meq, 2x a day. Spiriva HandiHaler Inhalation 2 puffs, daily. Xarelto Oral (Tablet 10 mg) 1 tablet, daily. Aspirin Oral 81 mg, daily. Allergies: Penicillins. Seafood.PHYSICAL EXAMVital Signs: 12/20/2020 10:51 BP: 108/82. MAP: 90. HR: 91. RR: 20. O2 saturation: 98% on nasal cannulaat 2 liters/minute. Temp: 100 F. Pain level now: 5/10. Have been reviewed as normal. Oxygen saturationnormal.Appearance: Alert. No acute distress.Eyes: Pupils equal, round and reactive to light. Eyes normal inspection.ENT: Ears normal. Nose normal. Pharynx normal. Uvula midline.Neck: Normal inspection. No jugular venous distention.CVS: Normal heart rate and rhythm. Heart sounds normal.Respiratory: Mild respiratory distress. Speaks short phrases. Decreased air movement. Expiratory andinspiratory moderate bilateral wheezes diffusely.Abdomen: Soft and nontender. No organomegaly.Back: Normal inspection.Skin: Skin warm and dry. Normal skin color. No rash. Normal skin turgor.Extremities: Extremities exhibit normal ROM. No lower extremity edema.Neuro: Oriented X 3.LABS, X-RAYS, AND EKGChest CT: (Worsening left lower lobe pneumonia. No significant change in atelectasis of most of the leftupper lobe. The etiology is not clear defined but a left hilar mass is not excluded. Correlate clinically.Consider bronchoscopy for further evaluation). Chest CT performed without contrast. The study wasinterpreted by the radiologist and contemporaneously by me. Interpretation time: 12:42 12/20/2020.Laboratory Tests: Laboratory tests have been ordered, with results reviewed and considered in themedical decision making process. CBC w Diff: (SARAH: 12/20/2020 11:30) ( MsgRcvd 12/20/2020 12:49) Final results Test Result Flag Units (Reference) CBC W/AUTOMATED DIFF COMPLETE BLOOD COUNT WBC 6.0 10/uL (4.2 - 11.0) RBC 3.00 L 10/uL (4.20 - 5.40) HEMOGLOBIN 10.3 L g/dL (12.0 - 16.0) HEMATOCRIT 30.9 L % (37.0 - 47.0) MCV 103.0 H fL (81.0 - 101) MCH 34.3 H pg (27.0 - 34.0) MCHC 33.3 g/dL (31.0 - 36.0) RDW 14.7 H % (11.5 - 14.5) PLATELETS 302 10/uL (150 - 450) MPV 8.9 fL (7.4 - 10.4) NEUT 78.5 % (37.0 - 80.0) 3 Clinical Report - Physicians/Mid Levels [facility] Emergency Department [address] [place] [address] Phone #: ext- [phone] 12/20/2020 10:48 Patient: CHANTALE SOLOMON Sex: F : 1965 Age: 55y LYMPH 6.6 L % (25.0 - 40.0) MONO 3.6 % (3.0 - 8.0) EOS 10.8 H % (0.0 - 7.0) BASO 0.2 % (0.0 - 2.5) %IG 0.3 H % (0.0 - 0.0) %NRBC 0.0 % (0.0 - 0.0) #NEUT 4.73 10/uL (2.00 - 6.90) #LYMPH 0.40 L 10/uL (0.60 - 3.40) #MONO 0.22 10/uL (0.00 - 0.90) #EOS 0.65 10/uL (0.00 - 0.70) #BASO 0.01 10/uL (0.00 - 0.20) #IG 0.02 10/uL (0.00 - 0.10) #NRBC 0.00 10/uL (0.00 - 0.00) MANUAL DIFF NOT INDICATED RBC MORPH NOT INDICATEDBNP: (SARAH: 12/20/2020 11:30) ( MsgRcvd 12/20/2020 12:46) Final results Test Result Flag Units (Reference) BNP 755 H PG/ML (0 - 125)CMP: (SARAH: 12/20/2020 11:30) ( MsgRcvd 12/20/2020 12:46) Final results Test Result Flag Units (Reference) COMPREHENSIVE METABOLIC PANEL COMPREHENSIVE METABOLIC PANEL SODIUM 133 L mEq/L (134 - 153) POTASSIUM 4.4 mEq/L (3.6 - 5.0) CHLORIDE 93 L mEq/L (98 - 107) CO2 33 H MEQ/L (22 - 30) GLUCOSE 102 H MG/DL (70 - 99) BUN 14 MG/DL (7 - 21) CREATININE 0.9 MG/DL (0.7 - 1.5) BUN/CREAT 16 (8 - 27) TOTAL PROTEIN 7.2 G/DL (6.3 - 8.2) ALBUMIN 3.4 L G/DL (3.9 - 5.0) GLOBULIN 3.8 H GM/DL (2.4 - 3.2) A/G RATIO 0.9 (0.8 - 2.0) CALCIUM 8.9 MG/DL (8.4 - 10.2) TOTAL BILI <0.7 MG/DL (0.2 - 1.3) ALKALINE PHOS 104 U/L (38 - 126) SGOT/AST 22 U/L (5 - 40) SGPT/ALT 16 U/L (7 - 56) A NION GAP 7.0 L mmol/L (8.0 - 16.0) AGE 55 yrs NON-AA GFR >60 mL/min AFR AMER GFR >60 mL/min Male GFR Interprentation 20-49 yrs >60 mL/min Rrfzhp09-99 yrs >56 mL/min Normal 60-69 yrs >49 mL/min Normal 70-79yrs>42 mL/min Normal 80 and above >35 mL/min Normal Female GFRInterpretation 20-39 yrs >60 mL/min Normal 40-49 yrs >58 mL/minNormal 50- 59 yrs >51 mL/min Normal 60-69 yrs >45 mL/min Ivqblz78-85 yrs >39 mL/min Normal 80 and above >32 mL/min NormalD-Dimer: (SARAH: 12/20/2020 11:30) ( [facility] [place] [place] 13:03) Final results Test Result Flag Units (Reference) D-DIMER QUANT 2.90 H ug/mL (0.27 - 0.50)Influenza Nasal A B: (SARAH: 12/20/2020 11:52) ( [facility] 12/20/2020 12:39) Final results 4 Clinical Report - Physicians/Mid Levels [facility] Emergency Department [address] [place] [address] Phone #: ext- [phone] 12/20/2020 10:48 Patient: CHANTALE SOLOMON Sex: F : 1965 Age: 55y Test Result Flag Units (Reference) INFLUENZA A NEGATIVE (NORMAL: NEGAT INFLUENZA B NEGATIVE (NORMAL: NEGAT INFLUENZA A REENTER NEGATIVE (NORMAL: NEGAT INFLUENZA B REENTER NEGATIVE (NORMAL: NEGAT PROCEDURAL CONTROL VALID KIT LOT # _[id number] 12/20/20.1239.CM . KIT EXP DATE _08/04/22 12/20/20.1239.CM .The Influenza A utilizing an isothermal nucleic acid amplification technology for thequalitative detection of influenza A and B viral RNA.Negative results do not preclude influenza virus infection and should not beused as the sole basis for diagnosis, treatment or other patient managementdecisions. Lactic Acid: (SARAH: 12/20/2020 11:30) ( [facility] 12/20/2020 12:18) Final results Test Result Flag Units (Reference) LACTIC ACID 1.9 MMOL/L (0.2 - 2.2) Troponin-T: (SARAH: 12/20/2020 11:30) ( MsgRcvd 12/20/2020 12:54) Final results Test Result Flag Units (Reference) TROPONIN T <0.01 NG/ML (0.00 - 0.10) TROPONIN T0.1 ng/ml Recommended as the clinical threshold value forTroponin T. COVID-19 CAH: (SARAH: 12/20/2020 11:52) ( MsgRcvd 12/20/2020 12:45) Final results Test Result Flag Units (Reference) COVID-19 NOT DETECTED COVID-19 REENTER NOT DETECTED { PROCEDURAL CONTROL VALID KIT LOT # _[id number] 12/20/20.1244.CM . KIT EXP DATE _01/19/21 12/20/20.1244.CM . NORMAL RANGE IS NOT DETECTEDNEGATIVE RESULTS SHOULD BE TREATED PRESUMPTIVE AND, IF INCONSISTENT WITHCLINICAL SIGNS AND SYMPTOMS OR NECESSARY FOR PATIENT MANAGEMENT, SHOULD BETESTED WITH DIFFERENT AUTHORIZED OR CLEARED MOLECULAR TESTS. NEGATIVE RESULTSDO NOT PRECLUDE SARS-CoV-2 INFECTION AND SHOULD NOT BE USED THE SOLE BASISFOR PATIENT MANAGEMENT DECISIONS..PROGRESS AND PROCEDURESCourse of Care: 13:Dec 20 2020. Evaluation after observation; results of tests back. (Discussed withattending Dr Galloway and he agrees with plan to admit. D/w Dr Alvarez and he will evaluate pt in the ED forAdmission and pt is agreeable with dx and tx plan.). Discussed case with hospitalist, (13:Dec [address] Alvarez). Reviewed test results. Agreed upon treatment plan and decision to admit. Health care provider will see patient in ED. Disposition: Admitted to the Acute Inpatient Unit, Monitored. 13:Dec [address] Alvarez. UTI (catheter associated) was not present prior to admission. Pressure ulcer was not present prior to admission. Vascular infection (catheter associated) was not present prior to admission. Surgical site infection was not present prior to admission. An object left in surgery was not present prior to admission. Blood incompatibility was not present prior to admission. Air embolism was not present prior to admission.CLINICAL IMPRESSION 5 Clinical Report - Physicians/Mid Levels [facility] Emergency Department [address] [place] [address] Phone #: ext- [phone] 12/20/2020 10:48 Patient: CHANTALE SOLOMON Sex: F : 1965 Age: 55y Lobar pneumonia.(Electronically signed by JOHN Yao 12/20/2020 21:07) Name Value Range Interpretation Code Description Data Maura rce(s) Supporting Document(s) ID Date Data Source [id number] 12/20/2020 06:00:00 PM EST [facility] (Osmel Alvarez MD) Name Value Range Interpretation Code Description Data Maura rce(s) Supporting Document(s) Laboratory test finding (navigational concept) Laboratory test result [facility] (Osmel Alvarez MD) SOURCE: Clean Catch Laboratory test finding (navigational concept) Laboratory test result [facility] (Osmel Alvarez MD) SOURCE: Clean Catch Laboratory test finding (navigational concept) Laboratory test result [facility] (Osmel Alvarez MD) SOURCE: Clean Catch Laboratory test finding (navigational concept) 1.015 1.001-1.030 [facility] (Osmel Alvarez MD) SOURCE: Clean Catch Laboratory test finding (navigational concept) Laboratory test result [facility] (Osmel Alvarez MD) SOURCE: Clean Catch Laboratory test finding (navigational concept) Laboratory test result [facility] (Osmel Alvarez MD) SOURCE: Clean Catch Laboratory test finding (navigational concept) 8 5-9 [facility] (Osmel Alvarez MD) SOURCE: Clean Catch Laboratory test finding (navigational concept) Laboratory test result [facility] (Osmel Alvarez MD) SOURCE: Clean Catch Laboratory test finding (navigational concept) 15 Abnormal (applies to non- numeric results) [facility] (Osmel Alvarez MD) SOURCE: Clean Catch Laboratory test finding (navigational concept) Laboratory test result [facility] (Osmel Alvarez MD) SOURCE: Clean Catch Laboratory test finding (navigational concept) 15 [facility] (Osmel Alvarez MD) SOURCE: Clean Catch Laboratory test finding (navigational concept) Laboratory test result [facility] (Osmel Alvarez MD) SOURCE: Clean Catch Laboratory test finding (navigational concept) Laboratory test result [facility] (Osmel Alvarez MD) SOURCE: Clean Catch Laboratory test finding (navigational concept) Laboratory test result [facility] (Osmel Alvarez MD) SOURCE: Clean Catch Laboratory test finding (navigational concept) Laboratory test result [facility] (Osmel Alvarez MD) SOURCE: Clean Catch Laboratory test finding (navigational concept) Laboratory test result [facility] (Osmel Alvarez MD) SOURCE: Clean Catch Laboratory test finding (navigational concept) Laboratory test result [facility] (Osmel Alvarez MD) SOURCE: Clean Catch Laboratory test finding (navigational concept) Laboratory test result [facility] (Osmel Alvarez MD) SOURCE: Clean Catch Laboratory test finding (navigational concept) Laboratory test result [facility] (Osmel Alvarez MD) SOURCE: Clean Catch Laboratory test finding (navigational concept) Laboratory test r esult Abnormal (applies to non-numeric results) [facility] (Osmel Alvarez MD ) SOURCE: Clean Catch ID Date Data Source [id number] 12/20/2020 06:58:00 PM EST [facility] Name Value Range Interpretation Code Description Data Maura rce(s) Supporting Document(s) [facility] yellow N[facility]AL: Yellow [facility] CLARITY clear NORMAL: Clear [facility] Specific gravity of Urine by Test strip 1.015 1.001 - 1.030 [facility] pH 8 5 - 9 [facility] al Glucose [Mass/volume] in Urine by Test strip NORM NORMAL: Negat angie [facility] Bilirubin.total [Presence] in Urine by Test strip NEG NORMAL: Negative [facility] Ketones [Presence] in Urine by Test strip 15 NORMAL: Negative A [facility] Protein [Mass/volume] in Urine by Test strip 15 NORMAL: Negat angie [facility] Nitrite [Presence] in Urine by Test strip NEG NORMAL: Negative [facility] BLOOD NEG NORMAL: Negative [facility] Leukocyte esterase [Presence] in Urine by Test strip NEG SHAUNA L: Negative [facility] Urobilinogen [Mass/volume] in Urine by Test strip NOR less lupe n 1.0 mg/dL [facility] MICROSCOPIC See Below [facility] ital WBC 1 - 3 NORMAL: NONE SEEN [facility] Erythrocytes [#/volume] in Urine by Test strip 0 - 1 NORMAL: NON E SEEN [facility] EPITHELIAL FEW NORMAL: NONE SEEN [facility] Crystals [type] in Urine sediment by Light microscopy See Below [facility] TRIPLE PHOS 3+ NORMAL: NONE SEEN [facility] ID Date Data Source [id number] 12/22/2020 08:49:00 PM EST [facility] Name Value Range Interpretation Code Description Data Maura rce(s) Supporting Document(s) SARS-CoV-2, DAR Not Detected Not Detected [facility] This nucleic acid amplification test was developed and its performancecharacteristics determined by [employer]. Nucleic acidamplification tests include RT-PCR and TMA. This test has not beenFDA cleared or approved. This test has been authorized by FDA underan Emergency Use Authorization (EUA). This test is only authorizedfor the duration of time the declaration that circumstances existjustifying the authorization of the emergency use of in vitrodiagnostic tests for detection of SARS-CoV-2 virus and/or diagnosisof COVID-19 infection under section 564(b)(1) of the Act, 21 U.S.C.360bbb-3(b) (1), unless the authorization is terminated or revokedsooner.When diagnostic testing is negative, the possibility of a falsenegative result should be considered in the context of a patient'srecent exposures and the presence of clinical signs and symptomsconsistent with COVID- 19. An individual without symptoms of COVID-19and who is not shedding SARS-CoV-2 virus would expect to have anegative (not detected) result in this assay. ID Date Data Source [id number] 12/20/2020 12:44:00 PM [facility] NOT DETECTEDNOT DETECTED{ PROC EDURAL CONTROL VALID KIT LOT # _[id number] 12/20/20.1244.CM . KIT EXP DATE _01/19/21 12/20/20.1244.CM . NORMAL RANGE IS NOT DETECTEDNEGATIVE RESULTS SHOULD BE TREATED PRESUMPTIVE AND, IF INCONSISTENT WITHCLINICAL SIGNS AND SYMPTOMS OR NECESSARY FOR PATIENT MANAGEMENT, SHOULD BETESTED WITH DIFFERENT AUTHORIZED OR CLEARED MOLECULAR TESTS. NEGATIVE RESULTSDO NOT PRECLUDE SARS-CoV-2 INFECTION AND SHOULD NOT BE USED THE SOLE BASISFOR PATIENT MANAGEMENT DECISIONS. Name Value Range Interpretation Code Description Data Maura rce(s) Supporting Document(s) ID Date Data Source [id number] 12/20/2020 12:39:00 PM [facility] Name Value Range Interpretation Code Description Data Maura rce(s) Supporting Document(s) Influenza virus A Ag [Presence] in Nasopharynx by Immunoassa y NEGATIVE NORMAL: NEGATIVE [facility] Influenza virus B Ag [Presence] in Nasopharynx by Immunoassa y NEGATIVE NORMAL: NEGATIVE [facility] NEGATIVENEGATIVE PROCEDURAL CO NTROL VALID KIT LOT # _[id number] 12/20/20.1239.CM . KIT EXP DATE _08/04/22 12/20/20.1239.CM .The Influenza A & B assay is a rapid molecular in vitro diagnostic testutilizing an isothermal nucleic acid amplification technology for thequalitative detection of influenza A and B viral RNA.Negative results do not preclude influenza virus infection and should not beused as the sole basis for diagnosis, treatment or other patient managementdecisions. ID Date Data Source [id number] 12/20/2020 01:03:00 PM [facility] Name Value Range Interpretation Code Description Data Maura rce(s) Supporting Document(s) Fibrin D-dimer FEU [Mass/volume] in Platelet poor plasma 2.90 ug /mL 0.27 - 0.50 H [facility] ID Date Data Source [id number] 12/20/2020 12:54:00 PM EST [facility] Name Value Range Interpretation Code Description Data [facility](s) Supporting Document(s) TROPONIN T <0.01 NG/ML 0.00 - 0.10 [facility] ospital TROPONIN T0.1 ng/ml Recommended as the c linical threshold value forTroponin T. ID Date Data Source [id number] 12/20/2020 12:49:00 PM EST [facility] Name Value Range Interpretation Code Description Data [facility](s) Supporting Document(s) CBC W/AUTOMATED DIFF [facility] COMPLETE BLOOD COUNT Leukocytes [#/volume] in Blood by Automated count 6.0 10^3/uL 4.2 - 1 1.0 [facility] Erythrocytes [#/volume] in Blood by Automated count 3.00 10^6/uL 4. 20 - 5.40 L [facility] Hemoglobin [Mass/volume] in Blood 10.3 g/dL 12.0 - 16.0 L [facility] Hematocrit [Volume Fraction] of Blood by Automated count 30.9 % 3 7.0 - 47.0 L [facility] Erythrocyte mean corpuscular volume [Entitic volume] b y Automated count 103.0 fL 81.0 - 101 H [facility] Erythrocyte mean corpuscular hemoglobin [Entitic mass] by Automated count 34.3 pg 27.0 - 34.0 H [facility] Erythrocyte mean corpuscular hemoglobin concentration [Mass/volume] by Automated count 33.3 g/dL 31.0 - 36.0 [facility] Erythrocyte distribution width [Ratio] by Automated count 14.7 % 11.5 - 14.5 H [facility] Platelets [#/volume] in Blood by Automated count 302 10^3/uL 150 - 45 0 [facility] Platelet mean volume [Entitic volume] in Blood by Automated count 8.9 fL 7.4 - 10.4 [facility] Neutrophils/100 leukocytes in Blood by Automated count 78.5 % 37. 0 - 80.0 [facility] Lymphocytes/100 leukocytes in Blood by Manual count 6.6 % 25.0 - 40.0 L [facility] Monocytes/100 leukocytes in Blood by Automated count 3.6 % 3.0 - 8.0 [facility] Eosinophils/100 leukocytes in Blood by Automated count 10.8 % 0.0 - 7.0 H [facility] Basophils/100 leukocytes in Blood by Automated count 0.2 % 0.0 - 2.5 [facility] %IG 0.3 % 0.0 - 0.[address] [facility] al %NRBC 0.0 % 0.0 - 0.0 [facility] al Neutrophils [#/volume] in Blood by Automated count 4.73 10^3/uL 2.00 - 6.90 [facility] Lymphocytes [#/volume] in Blood by Automated count 0.40 10^3/uL 0.60 - 3.40 L [facility] Monocytes [#/volume] in Blood by Automated count 0.22 10^3/uL 0.00 - 0.90 [facility] Eosinophils [#/volume] in Blood by Automated count 0.65 10^3/uL 0.00 - 0.70 [facility] Basophils [#/volume] in Blood by Automated count 0.01 10^3/uL 0.00 - 0.20 [facility] #IG 0.02 10^3/uL 0.00 - 0.10 [facility] ospital #NRBC 0.00 10^3/uL 0.00 - 0.00 [facility] ospital MANUAL DIFF NOT INDICATED [facility] RBC MORPH NOT INDICATED [facility] spital ID Date Data Source [id number] 12/20/2020 12:46:00 PM EST [facility] Name Value Range Interpretation Code Description Data Maura rce(s) Supporting Document(s) COMPREHENSIVE METABOLIC PANEL [facility] COMPREHENSIVE METABOLIC PANEL Sodium [Moles/volume] in Serum or Plasma 133 mEq/L 134 - 153 L [facility] Potassium [Moles/volume] in Serum or Plasma 4.4 mEq/L 3.6 - 5.0 [facility] Chloride [Moles/volume] in Serum or Plasma 93 mEq/L 98 - 107 L [facility] Carbon dioxide, total [Moles/volume] in Serum or Plasma 33 MEQ/L 22 - 30 H [facility] Glucose [Mass/volume] in Serum or Plasma 102 MG/DL 70 - 99 H [facility] BUN 14 MG/DL 7 - 21 [facility] Creatinine [Mass/volume] in Serum or Plasma 0.9 MG/DL 0.7 - 1.5 [facility] BUN/CREAT 16 8 - 27 [facility] Protein [Mass/volume] in Serum or Plasma 7.2 G/DL 6.3 - 8.2 [facility] Albumin [Mass/volume] in Serum or Plasma 3.4 G/DL 3.9 - 5.0 L [facility] Globulin [Mass/volume] in Serum by calculation 3.8 GM/DL 2.4 - 3.2 H [facility] A/G RATIO 0.9 0.8 - 2.0 [facility] Calcium [Mass/volume] in Serum or Plasma 8.9 MG/DL 8.4 - 10.2 [facility] Bilirubin.total [Mass/volume] in Serum or Plasma <0.7 MG/DL 0.2 - 1.3 [facility] Alkaline phosphatase [Enzymatic activity/volume] in Serum or Plasma 104 U/L 38 - 126 [facility] Aspartate aminotransferase [Enzymatic activity/volume] in Serum or Plasma 22 U/L 5 - 40 [facility] Alanine aminotransferase [Enzymatic activity/volume] in Seru m or Plasma 16 U/L 7 - 56 [facility] Anion gap 3 in Serum or Plasma 7.0 mmol/L 8.0 - 16.0 L [facility] AGE 55 yrs [facility] NON-AA GFR >60 mL/min [facility] ital AFR AMER GFR >60 mL/min [facility] Ho spital Male GFR In terprentation 20-49 yrs >60 mL/min Normal 50-59 yrs >56 mL/min Normal 60-69 yrs >49 mL/min Normal 70-79yrs >42 mL/min Normal 80 and above >35 mL/min Normal Female GFR Interpretation 20-39 yrs >60 mL/min Normal 40-49 yrs >58 mL/min Normal 50-59 yrs >51 mL/min Normal 60-69 yrs >45 mL/min Normal 70-79 yrs >39 mL/min Normal 80 and above >32 mL/min Normal ID Date Data Source [id number] 12/20/2020 12:46:[address] [facility] Name Value Range Interpretation Code Description Data Maura rce(s) Supporting Document(s) BNP 755 PG/ML 0 - [address] [facility] ID Date Data Source [id number] 12/20/2020 12:18:[address] [facility] Name Value Range Interpretation Code Description Data Maura rce(s) Supporting Document(s) Lactate [Moles/volume] in Serum or Plasma 1.9 MMOL/L 0.2 - 2.2 [facility] ID Date Data Source [id number] 12/11/2020 10:18:00 AM [facility] [address] [place] [address] PHONE: [phone] FAX: [phone] Name .................. : JUANITO AMAYAHERINE Jeremiah Acct Number.................. : [id number] ROOM. ................. : MR Number ................... : [id number] Stay type ............. : O/P Discharge Date......... ... : 12/08/20 Admit Date ......... : 12/08/20 Admit Phys .................... : MELANY WAJ Date of ....... : 1965 Family Phys ................... : SEQUEIRA Phone .................. : [phone] Age ................................ : 55 Film# .................. .:[id number] Sex ................................. : F Unsigned transcriptions are preliminary reports and do not represent a medical or legal document CHEST 2 VIEWS [id number] COMPLETE:12/08/20 12:44 KBO 3699 (REASON FOR CHEST: COUGH CHEST X-RAY: 2-VIEWS COMPARISON: 08/01/20 CLINICAL HISTORY: Cough. FINDINGS: There is continued left upper lobe and left perihilar mass, unchanged. The right lung and base of the left lung are clear. There is a right jugular [id number] with the tip in the superior vena cava. Status post fusion of the thoracic spine using bilateral Gonzalez rods. IMPRESSION: Stable examination with left upper lobe and left perihilar mass. Electronically Reviewed and Signed By Duong Guerrero MD , 12/11/20 10:18, [facility] Transcribe Initials: DZ , Transcribe Date: 12/09/20 00:46, Dictation Date: Copy for: MELANY TAVAREZ via fax Copy for: [address] [place] [address] Page 1 of 1 Name Value Range Interpretation Code Description Data Maura rce(s) Supporting Document(s) ID Date Data Source [id number] 12/04/2020 01:05:00 PM [facility] Patient Name: Chantale Solomon : 1965 Sex: F Pt Unit #: [id number] Location:[facility] Provider: Visit Date/Time: 12/04/20 Primary Insurance: BC/BS [employer] EM[employer]YE[employer] Secondary Insurance: Self Pay Intake Intake Visit Reasons: Telemed Visit Nurse Note: pt is doing telemed call due to being in the hospital with covid pt was in [place] Is patient in pain?: Yes (lower back) Pain scale (1-10): 7 Allergies Penicillins Allergy (Unverified 01/17/20 09:43) Rash sea food Allergy (Severe, Uncoded 12/13/19 12:22) Anaphylaxis Medications - Last Reconciled 12/04/20 by Gail Reyes NP budesonide-formoterol 80-4.5 mcg/actuation (Symbicort) 2 puffs inhalation BID folic acid 1 mg PO QDAY furosemide 20 mg PO .weekly magnesium oxide 500 mg PO QDAY nebivolol (Bystolic) 5 mg PO QDAY pantoprazole 40 mg PO QDAY rivaroxaban (Xarelto) 20 mg PO QDAY tiotropium bromide 1.25 mcg/actuation (Spiriva Respimat) 2 puffs inhalation QDAY Fall Risk History of falls: No Ambulatory Aid:: None Gait/Transferring:: Normal Medications:: Antihypertensives Telephone visit Telephone/Virtual Visit Patient consented to consult via telephone or video: Yes Location of provider: Provider office Location of the Patient: Home [facility] Medical History (Updated 12/04/20 @ 13:50 by Gail Reyes NP) Cancer GERD (gastroesophageal reflux disease) History of pulmonary embolus (PE) Surgical History H/O dilation and curettage H/O nasal septoplasty H/O spinal fusion H/O tubal ligation History of appendectomy Hx of tonsillectomy Social History Does the Patient have a Healthcare Proxy: Yes ( JOSE) Does Patient have a DNR?: No Does Patient have a Living Will?: No household members: spouse and other details: 2 marital status: highest education level completed: high school graduate service: No 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 DISCHARGED FROM [facility] ON 11/29/2020. BILATERAL COVID PNEUMONIA. FEELING MUCH BETTER. FINISHED LEVAQUIN. PRODUCTIVE COUGH. NO FEVERS. HAD 2ND COVID VACCINE TODAY Review of Systems Const Denies chills, Denies fatigue, Denies fever(s) and Denies headache(s) Eyes Reports system reviewed and no additional complaints, except as documented ENT Denies dizziness, Denies headache(s), Denies nasal congestion and Denies sore throat Card Denies chest pain and Reports dyspnea on exertion Details: ON CONTINUOUS O2 @ 2 LPM. Resp Reports cough and Reports dyspnea on exertion Details: FINISHED LEVAQUIN. 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 O2 CONTINUOUS AT 2 LPM. DYSPNEA AT BASELINE GI Reports system reviewed and no additional complaints, except as documented, Denies constipation, Reports diarrhea (D/T ABX.), Denies nausea and Denies vomiting Genitourinary: Reports system reviewed and no additional complaints, except as documented; Denies dysuria, urinary frequency or urinary urgency Musc Reports system reviewed and no additional complaints, except as documented Skin/Breast Reports system reviewed and no additional complaints, except as documented Neuro Reports system reviewed and no additional complaints, except as documented, Denies dizziness, Deniesheadache(s) and Denies paresthesias Psych Reports system reviewed and no additional complaints, except as documented, Denies anxiety and Denies depression Endo Reports system reviewed and no additional complaints, except as documented and Denies fatigue Valente/Lymph Reports system reviewed and no additional complaints, except as documented Aller/Immun Reports system reviewed and no additional complaints, except as documented Assessment Plan Assessment Plan (1) Viral upper respiratory illness: Status: Acute Code(s): J06.9 - Acute upper respiratory infection, unspecified SNOMED Code(s): 054622694 Category: Medical Plan - Gail Reyes NP: HAS F/U APPT WITH ORDERING MACHINE OPERATOR IN A COUPLE WEEKS.. CONT. CURRENT MEDS. ADVISED ADDING PROBIOTIC FOR DIARRHEA. RTC PRN TIME SPENT 20 MINUTES Orders Other Medications: Refilled: pantoprazole 40 mg PO QDAY 90 tabs 3RF Coding Level of Care Code Established Pt Telemed Visit (11-20 min) Patient Type Established History Expanded Problem Focused Exam Expanded Problem Focused Medical Decision Making Moderate Complexity Diagnoses Viral upper respiratory illness J06.9 Time Spent (min) 20 <Electronically signed by Gail Reyes NP> 12/04/20 1355 Name Value Range Interpretation Code Description Data Maura rce(s) Supporting Document(s) ID Date Data Source [id number] 11/28/2020 07:36:00 AM EST [facility] Name Value Range Interpretation Code Description Data Maura rce(s) Supporting Document(s) COMPREHENSIVE METABOLIC PANEL [facility] COMPREHENSIVE METABOLIC PANEL Sodium [Moles/volume] in Serum or Plasma 135 mEq/L 134 - 153 [facility] Potassium [Moles/volume] in Serum or Plasma 5.0 mEq/L 3.6 - 5.0 [facility] Chloride [Moles/volume] in Serum or Plasma 100 mEq/L 98 - 107 [facility] Carbon dioxide, total [Moles/volume] in Serum or Plasma 27 MEQ/L 22 - 30 [facility] Glucose [Mass/volume] in Serum or Plasma 166 MG/DL 70 - 99 H [facility] BUN 21 MG/DL 7 - 21 [facility] al Creatinine [Mass/volume] in Serum or Plasma 0.9 MG/DL 0.7 - 1.5 [facility] BUN/CREAT 23 8 - 27 [facility] Protein [Mass/volume] in Serum or Plasma 6.0 G/DL 6.3 - 8.2 L [facility] Albumin [Mass/volume] in Serum or Plasma 3.5 G/DL 3.9 - 5.0 L [facility] Globulin [Mass/volume] in Serum by calculation 2.5 GM/DL 2.4 - 3.2 [facility] A/G RATIO 1.4 0.8 - 2.0 [facility] Calcium [Mass/volume] in Serum or Plasma 8.3 MG/DL 8.4 - 10.2 L [facility] Bilirubin.total [Mass/volume] in Serum or Plasma <0.7 MG/DL 0.2 - 1.3 [facility] Alkaline phosphatase [Enzymatic activity/volume] in Serum or Plasma 75 U/L 38 - 126 [facility] Aspartate aminotransferase [Enzymatic activity/volume] in Serum or Plasma 21 U/L 5 - 40 [facility] Alanine aminotransferase [Enzymatic activity/volume] in Seru m or Plasma 23 U/L 7 - 56 [facility] Anion gap 3 in Serum or Plasma 8.0 mmol/L 8.0 - 16.0 [facility] AGE 55 yrs [facility] al NON-AA GFR >60 mL/min [facility] ital AFR AMER GFR >60 mL/min [facility] Ho spital Male GFR In terprentation 20-49 yrs >60 mL/min Normal 50-59 yrs >56 mL/min Normal 60-69 yrs >49 mL/min Normal 70-79yrs >42 mL/min Normal 80 and above >35 mL/min Normal Female GFR Interpretation 20-39 yrs >60 mL/min Normal 40-49 yrs >58 mL/min Normal 50-59 yrs >51 mL/min Normal 60-69 yrs >45 mL/min Normal 70-79 yrs >39 mL/min Normal 80 and above >32 mL/min Normal ID Date Data Source [id number] 11/28/2020 07:29:00 AM EST [facility] Name Value Range Interpretation Code Description Data Maura rce(s) Supporting Document(s) CBC W/AUTOMATED DIFF [facility] COMPLETE BLOOD COUNT Leukocytes [#/volume] in Blood by Automated count 7.7 10^3/uL 4.2 - 1 1.0 [facility] Erythrocytes [#/volume] in Blood by Automated count 3.29 10^6/uL 4. 20 - 5.40 L [facility] Hemoglobin [Mass/volume] in Blood 11.4 g/dL 12.0 - 16.0 L [facility] Hematocrit [Volume Fraction] of Blood by Automated count 33.8 % 3 7.0 - 47.0 L [facility] Erythrocyte mean corpuscular volume [Entitic volume] b y Automated count 102.7 fL 81.0 - 101 H [facility] Erythrocyte mean corpuscular hemoglobin [Entitic mass] by Automated count 34.7 pg 27.0 - 34.0 H [facility] Erythrocyte mean corpuscular hemoglobin concentration [Mass/volume] by Automated count 33.7 g/dL 31.0 - 36.0 [facility] Erythrocyte distribution width [Ratio] by Automated count 13.3 % 11.5 - 14.5 [facility] Platelets [#/volume] in Blood by Automated count 265 10^3/uL 150 - 45 0 [facility] Platelet mean volume [Entitic volume] in Blood by Automated count 9.8 fL 7.4 - 10.4 [facility] Neutrophils/100 leukocytes in Blood by Automated count 85.6 % 37. 0 - 80.0 H [facility] Lymphocytes/100 leukocytes in Blood by Manual count 5.3 % 25.0 - 40.0 L [facility] Monocytes/100 leukocytes in Blood by Automated count 7.1 % 3.0 - 8.0 [facility] Eosinophils/100 leukocytes in Blood by Automated count 0.0 % 0.0 - 7.0 [facility] Basophils/100 leukocytes in Blood by Automated count 0.3 % 0.0 - 2.5 [facility] %IG 1.7 % 0.0 - 0.[address] [facility] %NRBC 0.0 % 0.0 - 0.0 [facility] [#/volume] in Blood by Automated count 6.60 10^3/uL 2.00 - 6.90 [facility] Lymphocytes [#/volume] in Blood by Automated count 0.41 10^3/uL 0.60 - 3.40 L [facility] Monocytes [#/volume] in Blood by Automated count 0.55 10^3/uL 0.00 - 0.90 [facility] Eosinophils [#/volume] in Blood by Automated count 0.00 10^3/uL 0.00 - 0.70 [facility] Basophils [#/volume] in Blood by Automated count 0.02 10^3/uL 0.00 - 0.20 [facility] #IG 0.13 10^3/uL 0.00 - 0.[address] [facility] H ospital #NRBC 0.00 10^3/uL 0.00 - 0.00 [facility] ospital MANUAL DIFF NOT INDICATED [facility] RBC MORPH NOT INDICATED [facility] spital ID Date Data Source [id number] 11/27/2020 12:32:00 PM EST [facility] [address] [place] [address] PHONE: [phone] FAX: [phone] Name .................. : JUANITO Daniels Acct Number.................. : [id number] ROOM. ................. : CCU1C MR Number ................... : [id number] Stay type ............. : I/P Discharge Date......... ... : Admit Date ......... : 11/24/20 Admit Phys .................... : DOMENIC Date of ....... : 1965 Family Phys ................... : SEQUEIRA Phone .................. : [phone] Age ................................ : 55 Film# .................. .:[id number] Sex ................................. : F Unsigned transcriptions are preliminary reports and do not represent a medical or legal document CT THORAX W/O CONTRAST [id number] COMPLETE:11/24/20 14:55 RLB 2725 Reason(s): worsening L air space on CXR, hx lung ca and covid [address] OF THE CHEST WITHOUT CONTRAST: INDICATION: Worsening air space disease, history of lung cancer, COVID positive. COMPARISON: 08/06/20 FINDINGS: No reactive mediastinal adenopathy. Left hilar adenopathy is identified measuring up to 12 mm short axis. Left upper lung consolidation versus possible mass. Patchy left lower lung infiltrate. Patchy right lung areas of increased attenuation consistent with probable scattered infiltrate. Posterior stabilizing hardware thoracolumbar spine. No fracture. Right Port-a-Cath in place. No cardiac enlargement or pericardial effusion. No aneurysmal dilatation to the aorta. IMPRESSION: There is a persistent left upper lung area consolidation versus mass. Patchy left lower lung and right lung small infiltrates. Left hilar adenopathy. While performing the above CT examination, radiation dose reduction was accomplished utilizing automated exposure control, adjusting of the mA and kV based on the patient's body size and/or the use of imperative reconstructive techniques. CT dose: 560.3 mGycm Page 1 of 2 [facility] [address] [address] PHONE: [phone] FAX: [phone] Name .................. : JUANITO Daniels Acct Number.................. : [id number] ROOM. ................. : CCU1 MR Number ................... : [id number] Stay type ............. : I/P Discharge Date......... ... : Admit Date ......... : 11/24/20 Admit Phys .................... : DOMENIC Date of ....... : 1965 Family Phys ................... : SEQUEIRA Phone .................. : [phone] Age .. .............................. : 55 Film# .................. .:[id number] Sex ................................. : F Unsigned transcriptions are preliminary reports and do not represent a medical or legal document CT THORAX W/O CONTRAST [id number] COMPLETE:11/24/20 14:55 RLB [id number] Reason(s): worsening L air space on CXR, hx lung ca and covid 19 pos Electronically Reviewed and Signed By Dudley Bush MD , 11/27/20 12:32, MYNOR Transcribe Initials: DZ , Transcribe Date: 11/25/20 01:37, Dictation Date: Copy for: 002 [facility] Copy for: [address] [place] [address] REC Page 2 of 2 Name Value Range Interpretation Code Description Data Maura rce(s) Supporting Document(s) ID Date Data Source [id number] 11/27/2020 12:31:00 PM EST [facility] [address] [place] [address] PHONE: [phone] FAX: [phone] Name .................. : JUANITO Daniels Acct Number.................. : [id number] ROOM. ................. : TR-06 MR Number ................... : [id number] Stay type ............. : E/R Discharge Date......... ... : Admit Date ......... : 11/24/20 Admit Phys .................... : VALERIA SILVIO Date of ....... : 1965 Family Phys ................... : SEQUEIRA Phone .................. : [phone] Age ................................ : 55 Film# .................. .:[id number] Sex ................................. : F Unsigned transcriptions are preliminary reports and do not represent a medical or legal document CHEST PORTABLE [id number] COMPLETE:11/24/20 11:32 2721 Reason(s): COVID 19 pos, worsening cough/SOB, hx lung ca CHEST PORTABLE, 11/24/20: INDICATION: COVID-19, worsening cough, shortness of breath, history of lung cancer. Comparison 09/27/20. FINDINGS: A supine portable view of chest is submitted. Complete whiteout of the left hemithorax. No infiltrate right lung. No right effusion. Cannot evaluate cardiac silhouette. 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 Posterior thoracic stabilization hardware. IMPRESSION: Worsening left air space disease with complete whiteout of the left hemithorax. Underlying mass or infiltrate not excluded. ____ Electronically Reviewed and Signed By Dudley Bush MD , 11/27/20 12:31, MYNOR Transcribe Initials: NARESH, Transcribe Date: 11/24/20 14:19, Dictation Date: Copy for: 002 [facility] Copy for: 710 [facility] Page 1 of 1 Name Value Range Interpretation Code Description Data Maura rce(s) Supporting Document(s) ID Date Data Source [id number] 11/27/2020 08:45:00 AM [facility] Name Value Range Interpretation Code Description Data Maura rce(s) Supporting Document(s) Magnesium [Mass/volume] in Serum or Plasma 1.6 MG/DL 1.7 - 2.2 L [facility] ID Date Data Source [id number] 11/27/2020 07:42:00 AM [facility] Name Value Range Interpretation Code Description Data Maura rce(s) Supporting Document(s) CBC W/AUTOMATED DIFF [facility] COMPLETE BLOOD COUNT Leukocytes [#/volume] in Blood by Automated count 7.5 10^3/uL 4.2 - 1 1.0 [facility] Erythrocytes [#/volume] in Blood by Automated count 3.26 10^6/uL 4. 20 - 5.40 L [facility] Hemoglobin [Mass/volume] in Blood 11.4 g/dL 12.0 - 16.0 L [facility] Hematocrit [Volume Fraction] of Blood by Automated count 33.9 % 3 7.0 - 47.0 L [facility] Erythrocyte mean corpuscular volume [Entitic volume] b y Automated count 104.0 fL 81.0 - 101 H [facility] Erythrocyte mean corpuscular hemoglobin [Entitic mass] by Automated count 35.0 pg 27.0 - 34.0 H [facility] Erythrocyte mean corpuscular hemoglobin concentration [Mass/volume] by Automated count 33.6 g/dL 31.0 - 36.0 [facility] Erythrocyte distribution width [Ratio] by Automated count 13.6 % 11.5 - 14.5 [facility] Platelets [#/volume] in Blood by Automated count 254 10^3/uL 150 - 45 0 [facility] Platelet mean volume [Entitic volume] in Blood by Automated count 9.8 fL 7.4 - 10.4 [facility] Neutrophils/100 leukocytes in Blood by Automated count 83.9 % 37. 0 - 80.0 H [facility] Lymphocytes/100 leukocytes in Blood by Manual count 6.3 % 25.0 - 40.0 L [facility] Monocytes/100 leukocytes in Blood by Automated count 7.6 % 3.0 - 8.0 [facility] Eosinophils/100 leukocytes in Blood by Automated count 0.0 % 0.0 - 7.0 [facility] Basophils/100 leukocytes in Blood by Automated count 0.3 % 0.0 - 2.5 [facility] %IG 1.9 % 0.0 - 0.0 [facility] %NRBC 0.0 % 0.0 - 0.0 [facility] al Neutrophils [#/volume] in Blood by Automated count 6.30 10^3/uL 2.00 - 6.90 [facility] Lymphocytes [#/volume] in Blood by Automated count 0.47 10^3/uL 0.60 - 3.40 L [facility] Monocytes [#/volume] in Blood by Automated count 0.57 10^3/uL 0.00 - 0.90 [facility] Eosinophils [#/volume] in Blood by Automated count 0.00 10^3/uL 0.00 - 0.70 [facility] Basophils [#/volume] in Blood by Automated count 0.02 10^3/uL 0.00 - 0.20 [facility] #IG 0.14 10^3/uL 0.00 - 0.[address] [facility] H ospital #NRBC 0.00 10^3/uL 0.00 - 0.00 [facility] ospital MANUAL DIFF NOT INDICATED [facility] RBC MORPH NOT INDICATED [facility] spital ID Date Data Source [id number] 11/27/2020 07:35:00 AM EST [facility] Name Value Range Interpretation Code Description Data Maura rce(s) Supporting Document(s) COMPREHENSIVE METABOLIC PANEL [facility] COMPREHENSIVE METABOLIC PANEL Sodium [Moles/volume] in Serum or Plasma 137 mEq/L 134 - 153 [facility] Potassium [Moles/volume] in Serum or Plasma 5.0 mEq/L 3.6 - 5.0 [facility] Chloride [Moles/volume] in Serum or Plasma 102 mEq/L 98 - 107 [facility] Carbon dioxide, total [Moles/volume] in Serum or Plasma 27 MEQ/L 22 - 30 [facility] Glucose [Mass/volume] in Serum or Plasma 149 MG/DL 70 - 99 H [facility] BUN 20 MG/DL 7 - 21 [facility] Creatinine [Mass/volume] in Serum or Plasma 0.9 MG/DL 0.7 - 1.5 [facility] BUN/CREAT 22 8 - 27 [facility] Protein [Mass/volume] in Serum or Plasma 5.9 G/DL 6.3 - 8.2 L [facility] Albumin [Mass/volume] in Serum or Plasma 3.6 G/DL 3.9 - 5.0 L [facility] Globulin [Mass/volume] in Serum by calculation 2.3 GM/DL 2.4 - 3.2 L [facility] A/G RATIO 1.6 0.8 - 2.0 [facility] Calcium [Mass/volume] in Serum or Plasma 8.1 MG/DL 8.4 - 10.2 L [facility] Bilirubin.total [Mass/volume] in Serum or Plasma <0.7 MG/DL 0.2 - 1.3 [facility] Alkaline phosphatase [Enzymatic activity/volume] in Serum or Plasma 78 U/L 38 - 126 [facility] Aspartate aminotransferase [Enzymatic activity/volume] in Serum or Plasma 21 U/L 5 - 40 [facility] Alanine aminotransferase [Enzymatic activity/volume] in Seru m or Plasma 18 U/L 7 - 56 [facility] Anion gap 3 in Serum or Plasma 8.0 mmol/L 8.0 - 16.0 [facility]GE 55 [facility] >60 mL/min [facility] ital AFR AMER GFR >60 mL/min [facility] Ho spital Male GFR In terprentation 20-49 yrs >60 mL/min Normal 50-59 yrs >56 mL/min Normal 60-69 yrs >49 mL/min Normal 70-79yrs >42 mL/min Normal 80 and above >35 mL/min Normal Female GFR Interpretation 20-39 yrs >60 mL/min Normal 40-49 yrs >58 mL/min Normal 50-59 yrs >51 mL/min Normal 60-69 yrs >45 mL/min Normal 70-79 yrs >39 mL/min Normal 80 and above >32 mL/min Normal ID Date Data Source [id number] 11/26/2020 09:43:00 AM EST [facility] Name Value Range Interpretation Code Description Data Maura rce(s) Supporting Document(s) COMPREHENSIVE METABOLIC PANEL [facility] COMPREHENSIVE METABOLIC PANEL Sodium [Moles/volume] in Serum or Plasma 136 mEq/L 134 - 153 [facility] Potassium [Moles/volume] in Serum or Plasma 4.2 mEq/L 3.6 - 5.0 [facility] Chloride [Moles/volume] in Serum or Plasma 100 mEq/L 98 - 107 [facility] Carbon dioxide, total [Moles/volume] in Serum or Plasma 24 MEQ/L 22 - 30 [facility] Glucose [Mass/volume] in Serum or Plasma 228 MG/DL 70 - 99 H [facility] BUN 16 MG/DL 7 - 21 [facility] Creatinine [Mass/volume] in Serum or Plasma 0.9 MG/DL 0.7 - 1.5 [facility] BUN/CREAT 18 8 - 27 [facility] Protein [Mass/volume] in Serum or Plasma 6.4 G/DL 6.3 - 8.2 [facility] Albumin [Mass/volume] in Serum or Plasma 3.9 G/DL 3.9 - 5.0 [facility] Globulin [Mass/volume] in Serum by calculation 2.5 GM/DL 2.4 - 3.2 [facility] A/G RATIO 1.6 0.8 - 2.0 [facility] al Calcium [Mass/volume] in Serum or Plasma 8.1 MG/DL 8.4 - 10.2 L [facility] Bilirubin.total [Mass/volume] in Serum or Plasma <0.7 MG/DL 0.2 - 1.3 [facility] Alkaline phosphatase [Enzymatic activity/volume] in Serum or Plasma 84 U/L 38 - 126 [facility] Aspartate aminotransferase [Enzymatic activity/volume] in Serum or Plasma 19 U/L 5 - 40 [facility] Alanine aminotransferase [Enzymatic activity/volume] in Seru m or Plasma 15 U/L 7 - 56 [facility] Anion gap 3 in Serum or Plasma 12.0 mmol/L 8.0 - 16.0 [facility] AGE 55 yrs [facility] al NON-AA GFR >60 mL/min [facility] ital AFR AMER GFR >60 mL/min [facility] Ho spital Male GFR In terprentation 20-49 yrs >60 mL/min Normal 50-59 yrs >56 mL/min Normal 60-69 yrs >49 mL/min Normal 70-79yrs >42 mL/min Normal 80 and above >35 mL/min Normal Female GFR Interpretation 20-39 yrs >60 mL/min Normal 40-49 yrs >58 mL/min Normal 50-59 yrs >51 mL/min Normal 60-69 yrs >45 mL/min Normal 70-79 yrs >39 mL/min Normal 80 and above >32 mL/min Normal ID Date Data Source [id number] 11/26/2020 09:32:00 AM EST [facility] Name Value Range Interpretation Code Description Data Maura rce(s) Supporting Document(s) CBC NO DIFF [facility] ital COMPLETE BLOOD COUNT Leukocytes [#/volume] in Blood by Automated count 6.1 10^3/uL 4.2 - 1 1.0 [facility] Erythrocytes [#/volume] in Blood by Automated count 3.36 10^6/uL 4. 20 - 5.40 L [facility] Hemoglobin [Mass/volume] in Blood 11.9 g/dL 12.0 - 16.0 L [facility] Hematocrit [Volume Fraction] of Blood by Automated count 34.5 % 3 7.0 - 47.0 L [facility] Erythrocyte mean corpuscular volume [Entitic volume] b y Automated count 102.7 fL 81.0 - 101 H [facility] Erythrocyte mean corpuscular hemoglobin [Entitic mass] by Automated count 35.4 pg 27.0 - 34.0 H [facility] Erythrocyte mean corpuscular hemoglobin concentration [Mass/volume] by Automated count 34.5 g/dL 31.0 - 36.0 [facility] Erythrocyte distribution width [Ratio] by Automated count 13.6 % 11.5 - 14.5 [facility] Platelets [#/volume] in Blood by Automated count 250 10^3/uL 150 - 45 0 [facility] Platelet mean volume [Entitic volume] in Blood by Automated count 9.5 fL 7.4 - 10.4 [facility] ID Date Data Source [id number] 11/25/2020 01:36:00 PM EST [facility] [address] [place] [address] RESPIRATORY CARE REPORT ==== ---------NAME------- NUMBER SEX AGE ADMIT DISC. XRAY# F/C CYNDY CHANTALE E [id number] F 55 11/24/20 [id number] B1 I/P DATE OF : 1965 M/R# [id number] #: [id number] CCU1C LOCATION: EMERGENCY DEPT EKG [id number] COMPLE TE:11/24/20 14:[place] [id number] PHYSICIAN: DOMENIC SHAW SILVIO Name Value Range Interpretation Code Description Data Maura rce(s) Supporting Document(s) ID Date Data Source [id number] 11/25/2020 11:38:00 AM [facility] Name Value Range Interpretation Code Description Data Maura rce(s) Supporting Document(s) C reactive protein [Mass/volume] in Serum or Plasma by High sensitivity method 100.94 MG/L 1.00 - 3.00 H [facility] HS-CRP CUT-OFF: RELATIVE RISK: <1.0 mg/L Low 1.0 - 3.0 mg/L Average >3.0 mg/L High Optimally, the average of HS-CRP results repeated two weeks apart should be used for risk assessment. ID Date Data Source [id number] 11/25/2020 11:19:00 AM [facility] Name Value Range Interpretation Code Description Data Maura rce(s) Supporting Document(s) Ferritin [Mass/volume] in Serum or Plasma 549.5 ng/mL 3.0 - 105 H [facility] ID Date Data Source [id number] 11/25/2020 11:15:00 AM [facility] Name Value Range Interpretation Code Description Data Maura rce(s) Supporting Document(s) Lactate dehydrogenase [Enzymatic activity/volume] in Serum o r Plasma 221 U/L 135 - 214 H [facility] ID Date Data Source [id number] 11/25/2020 10:56:00 AM [facility] Value Range Interpretation Code Description Data Maura rce(s) Supporting Document(s) Fibrinogen [Mass/volume] in Platelet poor plasma by Co agulation assay 610.0 mg/dL 179 - 506 H [facility] ID Date Data Source [id number] 11/25/2020 09:13:00 AM [facility] Value Range Interpretation Code Description Data Maura rce(s) Supporting Document(s) COMPREHENSIVE METABOLIC PANEL [facility] COMPREHENSIVE METABOLIC PANEL Sodium [Moles/volume] in Serum or Plasma 137 mEq/L 134 - 153 [facility] Potassium [Moles/volume] in Serum or Plasma 4.2 mEq/L 3.6 - 5.0 [facility] Chloride [Moles/volume] in Serum or Plasma 99 mEq/L 98 - 107 [facility] Carbon dioxide, total [Moles/volume] in Serum or Plasma 26 MEQ/L 22 - 30 [facility] Glucose [Mass/volume] in Serum or Plasma 138 MG/DL 70 - 99 H [facility] BUN 11 MG/DL 7 - 21 [facility] Creatinine [Mass/volume] in Serum or Plasma 0.9 MG/DL 0.7 - 1.5 [facility] BUN/CREAT 12 8 - 27 [facility] Protein [Mass/volume] in Serum or Plasma 6.1 G/DL 6.3 - 8.2 L [facility] Albumin [Mass/volume] in Serum or Plasma 3.6 G/DL 3.9 - 5.0 L [facility] Globulin [Mass/volume] in Serum by calculation 2.5 GM/DL 2.4 - 3.2 [facility] A/G RATIO 1.4 0.8 - 2.0 [facility] Calcium [Mass/volume] in Serum or Plasma 8.0 MG/DL 8.4 - 10.2 L [facility] Bilirubin.total [Mass/volume] in Serum or Plasma <0.7 MG/DL 0.2 - 1.3 [facility] Alkaline phosphatase [Enzymatic activity/volume] in Serum or Plasma 99 U/L 38 - 126 [facility] Aspartate aminotransferase [Enzymatic activity/volume] in Serum or Plasma 26 U/L 5 - 40 [facility] Alanine aminotransferase [Enzymatic activity/volume] in Seru m or Plasma 18 U/L 7 - 56 [facility] Anion gap 3 in Serum or Plasma 12.0 mmol/L 8.0 - 16.0 [facility] AGE 55 yrs [facility] al NON-AA GFR >60 mL/min [facility] ital AFR AMER GFR >60 mL/min [facility] Ho spital Male GFR In terprentation 20-49 yrs >60 mL/min Normal 50-59 yrs >56 mL/min Normal 60-69 yrs >49 mL/min Normal 70-79yrs >42 mL/min Normal 80 and above >35 mL/min Normal Female GFR Interpretation 20-39 yrs >60 mL/min Normal 40-49 yrs >58 mL/min Normal 50-59 yrs >51 mL/min Normal 60-69 yrs >45 mL/min Normal 70-79 yrs >39 mL/min Normal 80 and above >32 mL/min Normal ID Date Data Source [id number] 11/25/2020 09:13:00 AM EST [facility] Name Value Range Interpretation Code Description Data Maura rce(s) Supporting Document(s) Magnesium [Mass/volume] in Serum or Plasma 1.5 MG/DL 1.7 - 2.2 L [facility] ID Date Data Source [id number] 11/25/2020 08:49:00 AM EST [facility] Name Value Range Interpretation Code Description Data Maura rce(s) Supporting Document(s) CBC W/AUTOMATED DIFF [facility] COMPLETE BLOOD COUNT Leukocytes [#/volume] in Blood by Automated count 2.5 10^3/uL 4.2 - 1 1.0 L [facility] Erythrocytes [#/volume] in Blood by Automated count 3.41 10^6/uL 4. 20 - 5.40 L [facility] Hemoglobin [Mass/volume] in Blood 12.0 g/dL 12.0 - 16.0 [facility] Hematocrit [Volume Fraction] of Blood by Automated count 34.9 % 3 7.0 - 47.0 L [facility] Erythrocyte mean corpuscular volume [Entitic volume] b y Automated count 102.3 fL 81.0 - 101 H [facility] Erythrocyte mean corpuscular hemoglobin [Entitic mass] by Automated count 35.2 pg 27.0 - 34.0 H [facility] Erythrocyte mean corpuscular hemoglobin concentration [Mass/volume] by Automated count 34.4 g/dL 31.0 - 36.0 [facility] Erythrocyte distribution width [Ratio] by Automated count 13.4 % 11.5 - 14.5 [facility] Platelets [#/volume] in Blood by Automated count 204 10^3/uL 150 - 45 0 [facility] Platelet mean volume [Entitic volume] in Blood by Automated count 9.4 fL 7.4 - 10.4 [facility] Neutrophils/100 leukocytes in Blood by Automated count 70.7 % 37. 0 - 80.0 [facility] Lymphocytes/100 leukocytes in Blood by Manual count 18.5 % 25.0 - 40.0 L [facility] Monocytes/100 leukocytes in Blood by Automated count 10.8 % 3.0 - 8.0 H [facility] Eosinophils/100 leukocytes in Blood by Automated count 0.0 % 0.0 - 7.0 [facility] Basophils/100 leukocytes in Blood by Automated count 0.0 % 0.0 - 2.5 [facility] %IG 0.0 % 0.0 - 0.0 [facility] al %NRBC 0.0 % 0.0 - 0.0 [facility] al Neutrophils [#/volume] in Blood by Automated count 1.76 10^3/uL 2.00 - 6.90 L [facility] Lymphocytes [#/volume] in Blood by Automated count 0.46 10^3/uL 0.60 - 3.40 L [facility] Monocytes [#/volume] in Blood by Automated count 0.27 10^3/uL 0.00 - 0.90 [facility] Eosinophils [#/volume] in Blood by Automated count 0.00 10^3/uL 0.00 - 0.70 [facility] Basophils [#/volume] in Blood by Automated count 0.00 10^3/uL 0.00 - 0.20 [facility] #IG 0.00 10^3/uL 0.00 - 0.10 [facility] H ospital #NRBC 0.00 10^3/uL 0.00 - 0.00 [facility] H ospital MANUAL DIFF NOT INDICATED [facility] RBC MORPH NOT INDICATED [facility] spital ID Date Data Source [id number] 11/24/2020 10:55:00 AM EST [facility] 1 OrderSheet [facility] Emergency Department [address] [place] [address] Phone #: ext- [phone] 11/24/2020 10:55 [id number] Sex: F : 1965 Age: 55yWEIGHT:81.6 kg (S) HEIGHT:60 inches (S) BMI:35.1ALLERGIES: Penicillins, SeafoodCHIEF COMPLAINT: dyspneaDIAGNOSIS: Pneumonia, Malignant tumor of lungLAB ORDERSOrder Description Priority Entered Acknowledged InitialedCulture, Sputum STAT 11:11/24/2020 11:29 Lakeshia Asher Jennifer Jennifer R.N. R.NKellen; Verbal order per; Darwin Shaw PAInfluenza Nasal A B STAT 11:11/24/2020 11:29 Lakeshia Asher Jennifer Jennifer R.N. RKellenNKellen; Verbal order per; Darwin Shaw PABlood Culture STAT 11:32 11/24/2020 11:33 Lakeshia,q10m X2 (Sched Darwin LOPEZ; Meghann Gallagher11:32 11/24/2020) Blood Culture STAT 11:32 11/24/2020 11:33 Lakeshia,q10m X2 (Sched Darwin LOPEZ; Meghann Gallagher11:42 11/24/2020)BNP STAT 11:32 11/24/2020 11:33 Darwin Asher; Meghann GallagherCBC w Diff STAT 11:32 11/24/2020 11:33 Darwin Asher; Meghann GallagherCMP STAT 11:32 11/24/2020 11:33 Darwin Asher; Meghann GallagherInfluenza Nasal A B STAT 11:32 11/24/2020 Cancelled: Duplicate Order 11:33 Darwin LOPEZ; Meghann Asher R.N.Lactic Acid STAT 11:32 11/24/2020 11:33 Darwin Asher; Meghann GallagherLDH STAT 11:32 11/24/2020 11:33 Darwin Asher; Meghann GallagherTroponin-T STAT 11:32 11/24/2020 11:33 Darwin Asher; Meghann GallagherUrinalysis (Clean STAT 11:32 11/24/2020 Ack'd: 11:33 12:50 Sushil Carmona OrderSheet [facility] Emergency Department [address] [place] [address] Phone #: ext- [phone] 11/24/2020 10:55 Patient: CHANTALE SOLOMON Sex: F : 1965 Age: 55yCatch) Darwin LOPEZ; Meghann Asher R.N. R.NKellenVenous Blood Gas STAT 11:32 11/24/2020 11:33 Darwin Asher R.N.COVID-19 CAH STAT 14:46 11/24/2020 14:51 Orin Pierson(Symptomatic as Darwin LOPEZ; R.NKellenDefined by CD C)(11/24/2020) (NotFirst Test)(Hospitalized) (Not) (NotResident inCongregate CareSetting) (NotEmployed inHealthcare Setting)DIAGNOSTIC STUDY ORDERSOrder Description Priority Entered Acknowledged InitialedChest Portable 1 STAT 11:32 11/24/2020 Ack'd: 11:33 11:41 Marysol Asher (Oxygen? Darwin LOPEZ; Meghann Asher R.N.(Yes)) R.NKellen Reason for Study: COVID 19 pos, worsening cough/SOB, hx lung caCT Chest W/O Cont STAT 12:08 11/24/2020 12:32 Kristine,(Oxygen? (Yes)) Darwin Shepherd R.N. Reason for Study: worseing L air space on CXR, hx lung ca and covid 19 posMEDICATION/IV/DRIP/FLUID ORDERSOrder Description Priority Entered Acknowledged InitialedDuoNeb 3 mL X2 11:31 11/24/2020 Ack'd: 11:33 11:43 Lakeshia,Doses (Filtered): 6 Darwin LOPEZ; Meghann Asher R.N.mL (3 mL X2 R.NKellenDoses)NS IV 75 mL/hr: : 75 11:32 11/24/2020 Ack'd: 11:33 11:43 Lakeshia,mL/hr Darwin LOPEZ; Meghann Asher R.N. RKellenNKellenFlomax PO 0.4 mg 11:38 11/24/2020 Cancelled: Wrong Patient 11:41 Lakeshia,(NOW x1, Do not Darwin LOPEZ; Meghann Gallaghercrush or chew)Azithromycin PO 13:49 11/24/2020 Cancelled: Physician Order 14:04 3 OrderSheet [facility] Emergency Department [address] [place] [address] Phone #: ext- [phone] 11/24/2020 10:55 Patient: CHANTALE SOLOMON Sex: F : 1965 Age: 66r538 mg X1 Dose: Darwin LOPEZ; Joao Carmona R.N.500 mg (NOW x1)Azithromycin IVPB 14:05 11/24/2020 14:20 Kristine500 mg X1 Dose: Joao Carmona R.N.; Joao Gallagher500 mg with Verbal order per;Dextrose Darwin Shaw PAIntravenous 250 mL(NOW x1)Dexamethasone 14:11 11/24/2020 14:20 STEPH CarmonaP 6 mg (NOW x1) Darwin Shepherd R.N.GENERAL ORDERSOrder Description Priority Entered Acknowledged InitialedEKG 11:32 11/24/2020 11:40 Darwin Asher; Meghann GallagherSecurity Support Analyst 11:32 11/24/2020 11:33 Lakeshia(continuous) Darwin Zavaleta R.N.Oxygen titrate to 11:32 11/24/2020 11:33 Lakeshia,92% Darwin Zavaleta R.N.Pulse Oximetry 11:32 11/24/2020 11:33 Lakeshia,Continuous Darwin LOPEZ; Meghann GallagherConsult - 14:51 11/24/2020 14:52 Orin PiersonCardiologist Darwin SUTTON R.N.Consult - 14:51 11/24/2020 14:52 Orin PiersonHospitalist Darwin LOPEZ; R.NKellen[Electronically signed by Joao Carmona R.N. (16:57 11/24/2020)][Electronically signed by Darwin Shaw (17:11 11/24/2020)][Electronically locked by Joao Carmona R.N. (16:57 11/24/2020)] Name Value Range Interpretation Code Description Data Maura rce(s) Supporting Document(s) ID Date Data Source [id number] 11/24/2020 10:55:00 AM EST [facility] 1 Medication Reconciliation Report [facility] Emergency Department [address] [place] [address] Phone #: ext- [phone] 11/24/2020 10:55 Patient: CHANTALE SOLOMON Sex: F : 1965 Age: 55yWeight: 81.6 kgHeight/Length: 60 in.BMI: 35.1ALLERGIES: Penicillins, SeafoodThe patient's Home Medications are listed below:THE FOLLOWING MEDICATIONS NEED TO BE RECONCILED: Aspirin Oral 81 mg, daily Breo Ellipta Inhalation 1 puff, daily Bystolic Oral (5 mg) 1 tablet, daily dilTIAZem HCl Oral 180 mg, daily, at bedtime Folic Acid Oral (800 mcg) 1 tablet, daily Furosemide Oral 20 mg, daily Magnesium Oral 1000mg , daily Pantoprazole Sodium Oral 40 mg, daily Potassium Oral 10 meq, 2x a day Spiriva HandiHaler Inhalation 2 puffs, daily Xarelto Oral (10 mg) 1 tablet, dailyThe source(s) of the original Home Medication information:patientThe following Medications were given to the patient in the Emergency Department:NS [IV] IV Fluids bolus 0, then 75 mL/hr, administered: 11:43 11/24/2020 2 Medication Reconciliation Report [facility] Emergency Department [address] [place] [address] Phone #: ext- [phone] 11/24/2020 10:55 Patient: CHANTALE SOLOMON Sex: F : 1965 Age: 55yDuoneb [Neb Tx] Neb TX 2 unit dose, administered: 11:43 1Azithromycin [IVPB] IVPB bolus 0, then 500 mg 250 mL/hr, administered: 14:20 1Dexamethasone [IVP] IVP 6 mg, administered: 14:20 11/24/2020The following Medications were prescribed to the patient:None. Name Value Range Interpretation Code Description Data Maura rce(s) Supporting Document(s) ID Date Data Source [id number] 11/24/2020 10:55:00 AM [facility] 1 Medication Administration Record [facility] Emergency Department [address] [place] [address] Phone #: ext- [phone] 11/24/2020 10:55 Patient: CHANTALE SOLOMON Sex: F : 1965 Age: 55yWeight: 81.6 kgHeight/Length: 60 inBMI: 35.1ALLERGIES: Penicillins, Seafood Date/Time Medication Administered Medication OrderedGiven DUONEB [NEB TX] DuoNeb 3 mL X2 Doses (Filtered):11:43 11/24/2020 Dose: 2 unit dose Nebulizer Neb TX 6 mL (3 mL X2 Doses)Meghann Asher R.N.Start NS [IV] NS IV 75 mL/hr: : 75 mL/hr11:43 11/24/2020 Dose: IV FluidsMeghann Asher R.N. Rate: 75 mL/hr---- Dispensed: 1000 mL bagContinued Upon Transfer Site: #1 right AC16:41 11/24/2020Joao Carmona R.N.Start AZITHROMYCIN [IVPB] Azithromycin IVPB 500 mg X114:20 11/24/2020 Dose: 500 mg IVPB Dose: 500 mg with DextroseJoao Carmona R.N. Rate: 250 mL/hr over 60 minute(s) Intravenous 250 mL (NOW x1)---- Dispensed: 250 mL bagStop Site: #1 right AC16:32 11/24/2020Joao Carmona R.N.Given DEXAMETHASONE [IVP] Dexamethasone IVP 6 mg (NOW14:20 11/24/2020 Dose: 6 mg IVP x1)Joao Carmona R.N. Site: #1 right AC Name Value Range Interpretation Code Description Data Maura rce(s) Supporting Document(s) ID Date Data Source [id number] 11/24/2020 10:55:00 AM EST [facility] 1 General Instructions [facility] Emergency Department [address] [place] [address] Phone #: ext- [phone] 11/24/2020 10:55 Patient: CHANTALE SOLOMON Sex: F : 1965 Age: 55yMetastatic left upper lobe and lower lobe lung cancer.Pneumonia. (COVID 19 Positive).(Electronically signed by JOHN Jones 11/24/2020 17:11) Name Value Range Interpretation Code Description Data Maura rce(s) Supporting Document(s) ID Date Data Source [id number] 11/24/2020 10:55:00 AM EST [facility] 1 Clinical Report - Nurses [facility] Emergency Department [address] [place] [address] Phone #: ext- [phone] 11/24/2020 10:55 Patient: CHANTALE SOLOMON Sex: F : 1965 Age: 55yTRIAGEArrived by private vehicle. Historian: patient. Accompanied by spouse.Triage time: late entry - 10:52 11/24/2020. Acuity: LEVEL 3.Chief Complaint: DIFFICULTY BREATHING.Alert. No acute distress.Onset. (3 days ago). ( Pt states she tested positive for COVID-19 10 days ago, did not originally hadsymptoms; Pt states later that day felt really tired, body aches, headache, denies fever, does have acough. Pt states she got better however 3 days ago started feeling short of breath and wheezy. 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 Pt is currently on a break fromchemo/radiation, was supposed to restart last Friday. Pt wears 2LNC chronically at home. Pt states shecaller her PCP who instructed her to come to ED.). ( Pt states this AM, O2 went down to 90% whileambulating with her o2 on and she is concerned for COVID pneumonia).Treatment RARE/ENDANGERED SPECIES SPECIALIST:Administered oxygen. Symptoms did not improve after treatment. (Albuteral neb last dose at 0900; Tylenollast dose last night).SEPSIS SCREEN: SIRS SCREEN NEGATIVE. SEPSIS SCREEN NEGATIVE. No suspected or confirmedsigns of infection present. (11:09 11/24/2020). --11:09 11/24/20 Meghann Asher R.N.11:00 11/24/20. BP: 121/75. MAP: 90. HR: 80. RR: 21. O2 saturation: 100% on nasal cannula at 2liters/minute. Temp: 97.9 F (oral). Pain level now: 03/12. --11:11/24/20 Meghann Asher R.N.Weight: 81.6 kg stated. Height/Length: 60 inches Per Patient. BMI: 35.1. --11:11/24/20 Meghann Asher R.N.MedicationsFolic Acid Oral (Tablet 800 mcg) 1 tablet, daily. --11:04 11/24/20 Meghann Asher R.N. Xarelto Oral (Tablet 10 mg) 1 tablet, daily. --11:11/24/20 Meghann Asher R.N. Pantoprazole Sodium Oral 40 mg, daily. --11:11/24/20 Meghann Asher R.N. Bystolic Oral (Tablet 5 mg) 1 tablet, daily. --11:11/24/20 Meghann Asher R.N. Magnesium Oral 1000mg , daily. --11:11/24/20 Meghann Asher R.N. Furosemide Oral 20 mg, daily. --11:05 11/24/20 Meghann Asher R.N. Potassium Oral 10 meq, 2x a day. --11:05 11/24/20 Meghann Asher R.N. dilTIAZem HCl Oral 180 mg, daily at bedtime. --11:05 11/24/20 Meghann Asher R.N. Aspirin Oral 81 mg, daily. --11:06 11/24/20 Meghann Asher R.N. Breo Ellipta Inhalation 1 puff, daily. --11:11/24/20 Meghann Asher R.N. Spiriva HandiHaler Inhalation 2 puffs, daily. --11:06 11/24/20 Meghann Asher R.N. 2 Clinical Report - Nurses [facility] Emergency Department [address] [place] [address] Phone #: ext- [phone] 11/24/2020 10:55 Patient: CHANTALE SOLOMON Sex: F : 1965 Age: 55yAllergiesPenicillins.Seafood. --11:07 11/24/20 Meghann Asher R.N.PROBLEMS:Cancer: Active. (Lung, mets to bones). --11:11/24/20 Meghann Asher R.N.DVT - Deep Venous Thrombosis.Atrial Fibrillation.Spinal Fracture.TIA - Transient Ischemic Attack.Pulmonary Embolism.Metabolic disease: (Bone).Pneumonia. --11:11/24/20 Meghann Asher R.N.Medication/allergy information source: the patient. --11:09 11/24/20 Meghann Asher R.N.ADDITIONAL SURGERIES:Appendectomy.Back Surgery (Rods in t spine, crushed t7 t8).Dilatation Curettage.Foot surgery.Right heel spur.Septoplasty.Tonsillectomy.Tubal Ligation. --11:11/24/20 Meghann Asher R.N.HistoryPAST MEDICAL HX: Immunizations: up-to-date and has received seasonal influenza. Has not receivedpneumonia PPSV23 immunization. The patient is post- menopausal.SOCIAL HX: Former smoker, end date 2017. No alcohol use or drug use. She was offered HIV testingbut declined. Patient education was provided. She was offered hepatitis C testing but declined. Patienteducation was provided. ( COVID POSITIVE). She has not traveled outside the [place]Infectious disease exposure: No infectious disease exposure. The patient was exposed to Coronavirus.Symptoms: difficulty breathing and cough. Mask placed on patient. Precautions taken. Staff notified.Patient taken to isolation room. Patient is not a known carrier of tuberculosis, hepatitis, HIV, MRSA or VRE.Patient is not a known carrier of CRE.SELF HARM ASSESSMENT: Self harm assessment was performed. The patient answered "no" to thequestion(s) "Do you have thoughts of harming or killing yourself?" and "Do you have a plan for harming orkilling yourself ?".ABUSE ASSESSMENT: Abuse assessment. The patient had positive responses to the question(s) "Do youfeel safe in your home?". Abuse denied. No suspicion of abuse. No report of abuse. 3 Clinical Report - Nurses [facility] Emergency Department [address] [place] [address] Phone #: ext- [phone] 11/24/2020 10:55 Patient: CHANTALE SOLOMON Sex: F : 1965 Age: 55y NUTRITIONAL RISK ASSESSMENT: The nutritional risk assessment revealed no deficiencies. FUNCTIONAL ASSESSMENT: Functional assessment: no impairments noted. LEARNING NEEDS ASSESSMENT: The learning needs assessment revealed no barriers. FALL RISK ASSESSMENT: Fall risk assessment completed. No risk factors identified. SKIN INTEGRITY ASSESSMENT: Skin integrity risk assessment completed. No skin integrity risk identified. --11:09 11/24/20 Meghann Asher R.N. Interventions Identification band on patient. Advanced care plan discussed with patient. Patient does not have advanced directive. (Pt has HCP but states she is a full code). --11:09 11/24/20 Meghann Asher R.N.PHYSICAL ASSESSMENTAmbulatory to room.GENERAL / NEURO / PSYCH: Alert. Oriented X 4. Appears in no acute distress.HEENT: Mucous membranes are pink.RESPIRATORY: Moderate respiratory distress. The patient can speak in full sentences. Coughproductive of clear, yellow sputum (at times). Decreased breath sounds. Wheezing present. Bilateralrhonchi present diffusely (heard without auscultation).CVS: Normal sinus rhythm noted. Capillary refill less than 2 seconds.GI / : Abdomen soft and nontender. Bowel sounds within normal limits.SKIN: Skin is warm and dry. Normal skin turgor. --11:28 11/24/20 Juan Asher R.N.NURSING PROGRESS NOTESOxygen administered by nasal cannula at 2 liters. Monitoring of patient in place. Patient gowned.Reassurance given. Patient identifiers checked. Call light placed in reach. Side rails up x 2. Bedplaced in lowest position. Brakes of bed on. Patient ready for evaluation- PA notified. --11:11 11/24/20Meghann Asher R.N. 11:11 11/24/20. BP: 111/66. HR: 80. RR: 22. O2 saturation: 100%. --11:12 11/24/20 Meghann Asher R.N. 11:15 11/24/2020 Site #1 started via IV in the right antecubital space with an 20g angiocath, with aseptic technique and good blood return; one attempt. Blood drawn: rainbow set and cultures x1. Labeled in the presence of the patient and sent to the lab. Saline lock flushed with 10 mL saline. --11:19 11/24/20 Meghann Asher R.N. late entry - 11:25 11/24/20. Patient ID band checked for patient name and birthdate: patient confirmed. Blood samples drawn from the right hand with butterfly by nurse per protocol ; labeled in presence of the patient and sent to lab: blood culture (2nd set). --11:26 11/24/20 Meghann Asher R.N. 4 Clinical Report - Nurses [facility] Emergency Department [address] [place] [address] Phone #: ext- [phone] 11/24/2020 10:55 Patient: CHANTALE SOLOMON Sex: F : 1965 Age: 55yP atient ID band checked for patient name and birthdate: patient confirmed. Sputum culture obtained,labeled in the presence of the patient and sent to lab. --11:27 11/24/20 Meghann Asher R.N.11:31 11/24/20. BP: 122/81. HR: 80. RR: 18. O2 saturation: 100%. --11:31 11/24/20 Meghann Asher R.N.EKG time: (late entry - 11:35 11/24/2020). EKG was ordered, performed by a nurse and shown to the EDphysician. --11:41 11/24/20 Meghann Asher R.N.Portable chest x-ray completed. --11:41 11/24/20 Meghann Asher R.N.11:43 11/24/2020 Started bag #1 1000 mL IV Fluids NS; at 75 mL/hr via site #1 via IV pump. Allergiesverified and confirmed 5 rights. IV patency established. IV site checked: no pain, redness, or swelling. IVflushed thoroughly pre- and post-medication administration. Information reviewed with patient includingreason for taking this medication, signs of allergic reaction and precautions. Verbalizes understanding.--11:43 11/24/20 Meghann Asher R.N.11:43 11/24/2020 Duoneb Neb TX Nebulizer 2 unit dose given. Given by the nurse. Allergies verified andconfirmed 5 rights. Information reviewed with patient including reason for taking this medication, signs ofallergic reaction and precautions. Verbalizes understanding. --11:43 11/24/20 Meghann Asher R.N.Patient transported to CT by stretcher with O2 and tech. --12:33 11/24/20 Joao Carmona R.N.11:47 11/24/20. BP: 106/93. MAP: 97. HR: 90. RR: 18. O2 saturation: 100%. --13:03 11/24/20 Meghann Asher R.N.12:11/24/20. BP: 121/81. MAP: 94. HR: 87. RR: 15. O2 saturation: 100%. --13:03 11/24/20 Meghann Asher R.N.12:15 11/24/20. BP: 118/7 5. MAP: 89. HR: 96. RR: 16. O2 saturation: 100%. --13:03 11/24/20 Meghann Asher R.N.12:30 11/24/20. BP: 120/76. MAP: 90. HR: 100. RR: 15. O2 saturation: 100%. --13:03 11/24/20 Meghann Asher R.N.13:11/24/20. BP: 116/79. MAP: 91. HR: 99. RR: 17. O2 saturation: 100%. --13:04 11/24/20 Meghann Asher R.N.14:11/24/2020 Azithromycin PO Tablets 500 mg given. --14:02 11/24/20 Joao Carmona R.N. Correction.--14:04 11/24/20 Joao Carmona R.N.14:11/24/2020 Started 500 mg of Azithromycin IVPB in bag #1 250 mL; at 250 mL/hr over 60 minute(s)via site #1. --14:11/24/20 Joao Carmona R.N. 5 Clinical Report - Nurses [facility] Emergency Department [address] [place] [address] Phone #: ext- [phone] 11/24/2020 10:55 Patient: CHANTALE SOLOMON Sex: F : 1965 Age: 55y 14:20 11/24/2020 Dexamethasone IVP 6 mg given over 3 minute(s) via site #1. --14:11/24/20 Joao Carmona R.N. 14:11/24/20. BP: 138/68. MAP: 91. HR: 92. RR: 17. O2 saturation: 100%. Temp: deferred. Pain level now: 0/10. --14:11/24/20 Joao Carmona R.N. Reassurance given to the patient. --14:21 11/24/20 Joao Carmona R.N. Patient ID band checked for patient name and birthdate: patient confirmed. COVID-19 specimen obtained via nasopharyngeal swab. Labeled in the presence of the patient and sent to lab (rapid). --14:52 11/24/20 Orin Pierson R.N. ( Pt removed from 02 for 30 min challenge per MD. Tolerating well at this time. IV infusing. Pt in no distress but verbalizes fam ng nervous.). --15:14 11/24/20 Joao Carmona R.N. Reassessment after medication administered. Respiratory distress still present. She is resting quietly. Overall patient status is the same- she states feels the same. --15:24 11/24/20 Joao Carmona R.N. ( 02 turned back on after desat to 91%. with 2lnc now 100 percent). --15:24 11/24/20 Joao Carmona R.N. 16:32 11/24/2020 Azithromycin IVPB via IV site #1 Discontinued: bag #2 infused. Total amount infused: 250 mL. --16:57 11/24/20 Joao Carmona R.N. 16:41 11/24/2020 IV Fluids NS via IV site #1 Continued: upon transfer at the rate of 75 mL/hr. 500 mL remaining bag #1. --16:56 11/24/20 Joao Carmona R.N.DISPOSITION / DISCHARGE Admitted to the Acute Inpatient Unit, Monitored. Transported via stretcher by nurse with monitor. --16:55 11/24/20 Joao Carmona R.N. 16:54 11/24/20. BP: 146/74. MAP: 98. HR: 76. RR: 20. O2 saturation: 100% at 2 liters/minute. Temp: deferred. Pain level now: 01/10. --16:55 11/24/20 Joao Carmona R.N. Report was given to a nurse in person. Report included information regarding patient's treatment, current vital signs and abnormal labs. Report included treatment information regarding medications given or pending. All questions were answered. Report was acknowledged. --16:56 11/24/20 Joao Carmona R.N. Departure time: 16:52 11/24/2020. --16:57 11/24/20 Joao Carmona R.N.Locked/Released at 11/24/2020 16:57 by Joao Carmona R.N. 6 Clinical Report - Nurses [facility] Emergency Department [address] [place] [address] Phone #: ext- [phone] 11/24/2020 10:55 Patient: CHANTALE SOLOMON Sex: F : 1965 Age: 55y Name Value Range Interpretation Code Description Data Maura rce(s) Supporting Document(s) ID Date Data Source [id number] 11/24/2020 10:55:00 AM EST [facility] 1 Clinical Report - Physicians/Mid Levels [facility] Emergency Department [address] [place] [address] Phone #: ext- [phone] 11/24/2020 10:55 Patient: CHANTALE SOLOMON Sex: F : 1965 Age: 55y Time Seen: 11:08 11/24/2020. Arrived- By private vehicle. Historian- patient. Disposition decision: 14:49 11/24/2020.HISTORY OF PRESENT ILLNESS Chief Complaint: DYSPNEA. This started about 10 days ago; Pt states she tested positive for COVID 19 10 days ago at [facility], (was tested due to testing positive), states no symptoms until later that day, then developed body aches, worsening cough and SOB, fatigue, hx active lung Ca, sees oncology at [facility], is currently on chemo but delayed by oncology due to recent dx of COVID. on O2 at home. The dyspnea is described as moderate and is worsened by walking and exertion, is improved by rest and is improved with oxygen. The patient has had sputum production, a cough, wheezing, dyspnea on exertion and orthopnea. No fever, sweating episodes, chills or chest pain or discomfort. No calf pain, foot swelling, anxiety, dizziness or tingling. No numbness or palpitations. Similar symptoms previously. None. Recent medical care: The patient was seen recently at another facility in a clinic.REVIEW OF SYSTEMSHas had a tubal ligation. She has not had weight loss. No muscle aches, eye irritation, sore throat, nasaldischarge or sinus drainage. No nausea, vomiting, abdominal pain, diarrhea or black stools. No bloodystools, headache, fainting episodes, blurred vision or difficulty with urination. No excessive urination, skinrash, enlarged lymph nodes, joint pain or abnormal bleeding.PAST HISTORYSee nurses notes. Problems: Cancer [Active]. (Lung, mets to bones) Heart Disease. Intervertebral Disc Disease. Chronic Back Pain. Back Injury. Cancer. Lower Extremity Pain. Reflux. Lung Cancer. DVT - Deep Venous Thrombosis. Atrial Fibrillation. Spinal Fracture. TIA - Transient Ischemic Attack. Pulmonary Embolism. 2 Clinical Report - Physicians/Mid Levels [facility] Emergency Department [address] [place] [address] Phone #: ext- [phone] 11/24/2020 10:55 Patient: CHANTALE SOLOMON Sex: F : 1965 Age: 55y Metabolic disease. (Bone) Pneumonia. Additional Surgeries: Appendectomy. Back Surgery. (Rods in t spine, crushed t7 t8) Dilatation Curettage. Foot surgery. Heel spur. Right heel spur. Septoplasty. Septoplasty. Tonsillectomy. Tubal Ligation. Medications: Spiriva HandiHaler Inhalation 2 puffs, daily. Breo Ellipta Inhalation 1 puff, daily. Aspirin Oral 81 mg, daily. dilTIAZem HCl Oral 180 mg, daily at bedtime. Potassium Oral 10 meq, 2x a day. Furosemide Oral 20 mg, daily. Magnesium Oral 1000mg , daily. Bystolic Oral (Tablet 5 mg) 1 tablet, daily. Pantoprazole Sodium Oral 40 mg, daily. Xarelto Oral (Tablet 10 mg) 1 tablet, daily. Folic Acid Oral (Tablet 800 mcg) 1 tablet, daily. Allergies: Penicillins. Seafood.SOCIAL HISTORYFormer smoker. No alcohol use or drug use. No recent travel.ADDITIONAL NOTESThe nursing notes have been reviewed with agreement regarding the chief complaint, HPI, ROS, PMH andpatient medications and allergies.PHYSICAL EXAMVital Signs: 11/24/2020 11:00 BP: 121/75. MAP: 90. HR: 80. RR: 21. O2 saturation: 100% on nasalcannula at 2 liters/minute. Temp: 97.9 F. Pain level now: 5/10. Have been reviewed as abnormal andappear to be correct. Blood pressure normal. Mean arterial pressure- normal. Heart rate normal.Tachypneic. Temperature normal. Oxygen saturation: on oxygen- oxygen saturation normal.Appearance: Alert. Anxious. Patient in mild d istress. Distress appears due to anxiety. 3 Clinical Report - Physicians/Mid Levels [facility] Emergency Department [address] [place] [address] Phone #: ext- [phone] 11/24/2020 10:55 Patient: CHANTALE SOLOMON Sex: F : 1965 Age: 55y Eyes: Pupils equal, round and reactive to light. Eyes normal inspection. ENT: Ears normal. Nose normal. Pharynx normal. Uvula midline. Neck: Normal inspection. No jugular venous distention. Neck supple. CVS: Normal heart rate and rhythm. Heart sounds normal. Pulses normal. Respiratory: No respiratory distress. Painless inspiration. Bilateral wheezes present. Abdomen: Soft and nontender. No organomegaly. Back: Normal inspection. Skin: Skin warm and dry. Normal skin color. No rash. Normal skin turgor. Extremities: Extremities exhibit normal ROM. No lower extremity edema. Neuro: Oriented X 3. No motor deficit. No sensory deficit. Reflexes normal.LABS, X-RAYS, AND EKGEKG: EKG time: 12:11 11/24/2020. No acute process. No acute ischemia. Normal sinus rhythm.Rate: 81. Normal P waves. Normal KATIE. Normal QRS complex. Normal axis. Normal QT and QTc.Non-specific ST segment / T wave abnormalities. EKG unchanged when compared with prior EKG. (2019). The study has been interpreted contemporaneously by me. The study has beenindependently viewed by me. The EKG appears to be a good tracing. I agree with and confirm thecomputer reading of the EKG. Interpretation time: 12:11 11/24/2020.Chest X-ray: (Worsening left airspace disease with complete whit out of left hemithorax. Underlying massor infiltrate not excluded.). Views: AP (portable). Technique: good. The X-rays were independentlyviewed by me and interpreted by the radiologist and contemporaneously by me. A comparison with priorfilms reveals that the findings have worsened. Interpretation time: 12:06 11/24/2020.Chest CT: (Persistent left lung upper lung consolidation v. mass. Patchy small infiltrates in left lower lungand throughout the right lung. Left hilar adenapathy.). Chest CT performed without contrast. The studywas independently viewed by me and interpreted contemporaneously by me. Interpretation time: 13:.Laboratory Tests: Laboratory tests have been ordered, with results reviewed and considered in themedical decision making process. CT Chest W/O Cont: (SARAH: 11/24/2020 12:08) ( MsgRcvd 11/24/2020 14:56) In Progress CT THORAX W/O CONTRAST Reason(s): worseing L air space on CXR, hx lung ca and covid 19 pos TRANSPORTATION: S IV? O2? Oxygen?(Yes) Room: E BNP: (SARAH: 11/24/2020 11:18) ( MsgRcvd 11/24/2020 12:26) Final results Test Result Flag Units (Reference) BNP 596 H PG/ML (0 - 125) CBC w Diff: (SARAH: 0 11/24/2020 11:18) ( MsgRcvd 11/24/2020 11:52) Final results Test Result Flag Units (Reference) CBC W/AUTOMATED DIFF COMPLETE BLOOD COUNT WBC 4.9 10/uL (4.2 - 11.0) RBC 3.68 L 10/uL (4.20 - 5.40) HEMOGLOBIN 13.2 g/dL (12.0 - 16.0) HEMATOCRIT 38.4 % (37.0 - 47.0) MCV 104.3 H fL (81.0 - 101) 4 Clinical Report - Physicians/Mid Levels [facility] Emergency Department [address] [place] [address] Phone #: ext- [phone] 11/24/2020 10:55 Patient: CHANTALE SOLOMON Sex: F : 1965 Age: 55y MCH 35.9 H pg (27.0 - 34.0) MCHC 34.4 g/dL (31.0 - 36.0) RDW 13.6 % (11.5 - 14.5) PLATELETS 201 10/uL (150 - 450) MPV 9.5 fL (7.4 - 10.4) NEUT 74.0 % (37.0 - 80.0) LYMPH 9.5 L % (25.0 - 40.0) MONO 15.3 H % (3.0 - 8.0) EOS 0.6 % (0.0 - 7.0) BASO 0.2 % (0.0 - 2.5) %IG 0.4 H % (0.0 - 0.0) %NRBC 0.0 % (0.0 - 0.0) #NEUT 3.59 10/uL (2.00 - 6.90) #LYMPH 0.46 L 10/uL (0.60 - 3.40) #MONO 0.74 10/uL (0.00 - 0.90) #EOS 0.03 10/uL (0.00 - 0.70) #BASO 0.01 10/uL (0.00 - 0.20) #IG 0.02 10/uL (0.00 - 0.10) #NRBC 0.00 10/uL (0.00 - 0.00) MANUAL DIFF NOT INDICATED RBC MORPH NOT INDICATEDCMP: (SARAH: 11/24/2020 11:18) ( MsgRcvd 11/24/2020 12:41) Final results Test Result Flag Units (Reference) COMPREHENSIVE METABOLIC PANEL COMPREHENSIVE METABOLIC PANEL SODIUM 134 mEq/L (134 - 153) POTASSIUM 3.9 mEq/L (3.6 - 5.0) CHLORIDE 94 L mEq/L (98 - 107) CO2 27 MEQ/L (22 - 30) GLUCOSE 104 H MG/DL (70 - 99) BUN 9 MG/DL (7 - 21) CREATININE 1.0 MG/DL (0.7 - 1.5) BUN/CREAT 9 (8 - 27) TOTAL PROTEIN 7.6 G/DL (6.3 - 8.2) ALBUMIN 3.9 G/DL (3.9 - 5.0) GLOBULIN 3.7 H GM/DL (2.4 - 3.2) A/G RATIO 1.1 (0.8 - 2.0) CALCIUM 8.6 MG/DL (8.4 - 10.2) TOTAL BILI <0.7 MG/DL (0.2 - 1.3) ALKALINE PHOS 107 U/L (38 - 126) SGOT/AST 33 U/L (5 - 40) SGPT/ALT 19 U/L (7 - 56) AN ION GAP 13.0 mmol/L (8.0 - 16.0) AGE 55 yrs NON-AA GFR >60 mL/min AFR AMER GFR >60 mL/min Male GFR Interprentation 20-49 yrs >60 mL/min Wtbbcm17-82 yrs >56 mL/min Normal 60-69 yrs >49 mL/min Normal 70-79yrs>42 mL/min Normal 80 and above >35 mL/min Normal Female GFRInterpretation 20-39 yrs >60 mL/min Normal 40-49 yrs >58 mL/minNormal 50- 59 yrs >51 mL/min Normal 60-69 yrs >45 mL/min Vrieri08-27 yrs >39 mL/min Normal 80 and above >32 mL/min NormalInfluenza Nasal A B: (SARAH: 11/24/2020 11:32) ( MsgRcvd 11/24/2020 11:34) CanceledLactic Acid: (SARAH: 11/24/2020 11:18) ( MsgRcvd 11/24/2020 11:56) Final results 5 Clinical Report - Physicians/Mid Levels [facility] Emergency Department [address] [place] [address] Phone #: ext- [phone] 11/24/2020 10:55 Patient: CHANTALE SOLOMON Sex: F : 1965 Age: 55y Test Result Flag Units (Reference) LACTIC ACID 2.3 H MMOL/L (0.2 - 2.2)LDH: (SARAH: 11/24/2020 11:18) ( MsgRcvd 11/24/2020 12:41) Final results Test Result Flag Units (Reference) LDH 234 H U/L (135 - 214)Troponin-T: (SARAH: 11/24/2020 11:18) ( MsgRcvd 11/24/2020 12:25) Final results Test Result Flag Units (Reference) TROPONIN T <0.01 NG/ML (0.00 - 0.10) TROPONIN T0.1 ng/ml Recommended as the clinical threshold value forTroponin T.Urinalysis: (SARAH: 11/24/2020 12:00) ( [facility] 11/24/2020 13:46) Final results Test Result Flag Units (Reference) URINALYSIS URINALYSIS SOURCE R COLOR yellow (NORMAL: Yello CLARITY clear (NORMAL: Clear SPEC GRAVITY 1.010 (1.001 - 1.030 pH 7 (5 - 9) GLUCOSE NORM (NORMAL: Negat BILIRUBIN NEG (NORMAL: Negat KETONE NEG (NORMAL: Negat PROTEIN NEG (NORMAL: Negat NITRITE NEG (NORMAL: Negat BLOOD NEG (NORMAL: Negat LEUK EST NEG (NORMAL: Negat UROBILINOGEN NOR (less than 1.0 MICROSCOPIC Not IndicateVenous Blood Gas: (SARAH: 11/24/2020 11:18) ( [facility] 11/24/2020 11:56) Final results Test Result Flag Units (Reference) pH V 7.37 (7.32 - 7.43) pCO2 V 49.8 mm/HG (38.0 - 51.0) pO2 V 38.6 mm/HG (30.0 - 55.0) HCO3 V 28.3 meq/L (22.0 - 29.0) TCO2 V 29.8 H meq/L (22.0 - 29.0) BASE EXCESS 2.2 H (-2.0 - 2.0) O2 SAT V 71.6 % (40.0 - 85.0)Chest Portable 1 View: (SARAH: 11/24/2020 11:32) ( [facility] 11/24/2020 14:22) In Progress Exam CHEST PORTABLE [facility] [address] [place] [address] PHONE: [phone] FAX: [phone] Name .................. : JUANITO CHANTALE E Acct Number.................. : [id number] ROOM. ................. : TR-06 MR Number ................... : [id number] Stay type ............. : E/R Discharge Date......... ... : Admit Date ......... : 11/24/20 Admit Phys .................... : VALERIA SILVIO Date of ....... : 1965 Family Phys ................... : SEQUEIRA Phone .................. : [phone] Age ............ .................... : 55 6 Clinical Report - Physicians/Mid Levels [facility] Emergency Department [address] [place] [address] Phone #: ext- [phone] 11/24/2020 10:55 Patient: CHANTALE SOLOMON Sex: F : 1965 Age: 55y Film# .................. .:[id number] Sex ................................. : F Unsigned transcriptions are preliminary reports and do not represent a medical or legal document CHEST PORTABLE 12196 COMPLETE:11/24/20 11:32 2721 Reason(s): COVID 19 pos, worsening cough/SOB, hx lung ca CHEST PORTABLE, 11/24/20: INDICATION: COVID-19, worsening cough, shortness of breath, history of lung cancer. Comparison 09/27/20. FINDINGS: A supine portable view of chest is submi tted. Complete whiteout of the left hemithorax. No infiltrate right lung. No right effusion. Cannot evaluate cardiac silhouette. 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 Posterior thoracic stabilization hardware. IMPRESSION: Worsening left air space disease with complete whiteout of the left hemithorax. Underlying mass or infiltrate not excluded. Electronically Reviewed and Signed By DCTNAME SIGNDATEMYNOR Transcribe Initials: SSR, Transcribe Date: 11/24/20 14:19, Dictation Date: <<REPDIST>> Page 1 of 1 Influenza Nasal A B: (SARAH: 11/24/2020 11:25) ( MsgRcvd 11/24/2020 12:26) Final results Test Result Flag Units (Reference) INFLUENZA A NEGATIVE (NORMAL: NEGAT INFLUENZA B NEGATIVE (NORMAL: NEGAT INFLUENZA A REENTER NEGATIVE (NORMAL: NEGAT INFLUENZA B REENTER NEGATIVE (NORMAL: NEGAT PROCEDURAL CONTROL VALID KIT LOT # _[id number] 11/24/20.1225.TAD. KIT EXP DATE _01.23.21 11/24/20.5.TAD.The Influenza A utilizing an isothermal nucleic acid amplification technology for thequalitative detection of influenza A and B viral RNA.Negative results do not preclude influenza virus infection and should not beused as the sole basis for diagnosis, treatment or other patient managementdecisions..PROGRESS AND PROCEDURESCourse of Care: 12:09 Nov [address] chest results. Confirmed pt has positive COVID 19 test 7 Clinical Report - Physicians/Mid Levels [facility] Emergency Department [address] [place] [address] Phone #: ext- [phone] 11/24/2020 10:55 Patient: CHANTALE SOLOMON Sex: F : 1965 Age: 55y [facility] 11/14/2020 14:[address] chest shows large L lung mass in addition to bilateral patchy infiltrates c/w pneumonia, pt is known lung Ca pt with bone mets, recent chemo, on O2 at home, and COVID 19 positive, spoke with [facility] hospitalist who requested pt be placed off o2 to see if she desats, if she does not, he recommends sending her home. I called Dr Alvarez who agrees pt is higher risk for poor outcome due to lung Ca and reduced lung function, He recommends hospitalist admission, consulted with hospitalist service PRODUCT DEVELOPMENT CONSULTANT Samy, who will admit pt for further evaluation and tx. 16:03 Nov 24 2020. O2 sats did drop to 91% off O2, pt became distressed and requested O2 be put back on, remdesivir to be given to pt on floor. Critical care performed (30 minutes). Time is exclusive of separately billable procedures. Time includes: direct patient care, patient reassessment, coordination of patient care, interpretation of data (laboratory data, pulse oximetry, chest xrays and prior electrocardiograms), review of patient's medical records, medical consultation and documentation of patient care- see progress notes. Disposition: Observation in the Acute Inpatient Unit, Monitored. UTI (catheter associated) was not present prior to being placed in observation. Pressure ulcer was not present prior to being placed in observation. Vascular infection (catheter associated)n was not present prior to being placed in observation. Surgical site infection was not present prior to being placed in observation. An object left in surgery was not present prior to being placed in observation. Blood incompatibility was not present prior to being placed in observation. Air embolism was not present p rior to being placed in observation. Observation decision based on lack of improvement, further evaluation, monitoring, further testing: labs and radiology, IV antibiotics and respiratory treatment.CLINICAL IMPRESSION Metastatic left upper lobe and lower lobe lung cancer. Pneumonia. (COVID 19 Positive).(Electronically signed by JOHN Jones 11/24/2020 17:11) Name Value Range Interpretation Code Description Data Maura rce(s) Supporting Document(s) ID Date Data Source [id number] 11/24/2020 02:50:00 PM EST [facility] Name Value Range Interpretation Code Description Data [facility] rce(s) Supporting Document(s) COVID19 [facility] rprt [facility] This lab was ordered by [facility] and reported by [facility]. ID Date Data Source [id number] 11/24/2020 03:36:00 PM EST [facility] DETECTEDDETECTED{ PROCEDURAL C ONTROL VALID KIT LOT # _[id number] 11/24/206.DW . KIT EXP DATE _49-05-25 11/24/206.DW . NORMAL RANGE IS NOT DETECTEDNEGATIVE RESULTS SHOULD BE TREATED PRESUMPTIVE AND, IF INCONSISTENT WITHCLINICAL SIGNS AND SYMPTOMS OR NECESSARY FOR PATIENT MANAGEMENT, SHOULD BETESTED WITH DIFFERENT AUTHORIZED OR CLEARED MOLECULAR TESTS. NEGATIVE RESULTSDO NOT PRECLUDE SARS-CoV-2 INFECTION AND SHOULD NOT BE USED THE SOLE BASISFOR PATIENT MANAGEMENT DECISIONS. Name Value Range Interpretation Code Description Data [facility] rce(s) Supporting Document(s) ID Date Data Source [id number] 11/24/2020 01:45:00 PM [facility] Name Value Range Interpretation Code Description Data [facility](s) Supporting Document(s) URINALYSIS [facility] willy URINALYSIS SOURCE R [facility] al COLOR yellow NORMAL: Yellow [facility] osp[facility] CLARITY clear NORMAL: Clear [facility] sp[facility] Specific gravity of Urine by Test strip 1.010 1.001 - 1.030 [facility] pH 7 5 - 9 [facility] Glucose [Mass/volume] in Urine by Test strip NORM NORMAL: Negat [facility] Bilirubin.total [Presence] in Urine by Test strip NEG NORMAL: Negative [facility] Ketones [Presence] in Urine by Test strip NEG NORMAL: Negative [facility] Protein [Mass/volume] in Urine by Test strip NEG NORMAL: Negat [facility] Nitrite [Presence] in Urine by Test strip NEG NORMAL: Negative [facility] BLOOD NEG NORMAL: Negative [facility] Leukocyte esterase [Presence] in Urine by Test strip NEG SHAUNA L: Negative [facility] Urobilinogen [Mass/volume] in Urine by Test strip NOR less lupe n 1.0 mg/dL [facility] MICROSCOPIC Not Indicate [facility] ospital ID Date Data Source [id number] 11/27/2020 02:18:00 PM EST [facility] Name Value Range Interpretation Code Description Data Maura rce(s) Supporting Document(s) CULTURE SPUTUM [facility] ospital _CULTURE SPUTUM_$$[id number]$$[id number]$$[id number]$$114924$$425163$$628232$$962363$$513139$$845949$ $427677$$718816$$706149$$[id number] DATE/TIME: 11/27/2020 13:05Culture: CULTURE SPUTUM Status: FinalWhite Blood Cells: P1None seenEpithelial Cells: [id number] 1: P1Rare gram negative rods. Flag: A -- Continued on next page --Patient: JUANITO Daniels Order: [id number] Page 2Culture: CULTURE SPUTUM Status: Final Gram Stain Evaluation: P1This specimen is of good quality and is acceptable for routinebacterial culture.Lower Respiratory Culture: [id number] respiratory alexi Previous result entered on 11/26/2020 16:23 ET Routine respiratory floraFungus present Flag: AScant growthP1 Test performed by: [facility] PRUDENCE #: [id number] [address] [place] [address] [id number] [facility] [id number] Director : Yonas Rascon MD NPI #:Gas Leak Tester : 11/25/20.1314.XMT.SENT REF 11/27/20.0634.XMT.SENT REF 11/27/20.1418.XMT.SENT REF 12/04/20.0841.XMT.SENT REF ID Date Data Source [id number] 12/02/2020 02:35:00 PM [facility] Name Value Range Interpretation Code Description Data Maura rce(s) Supporting Document(s) CULTURE BLOOD [facility] spital _CULTURE BLOOD_ TEST [place] [address] CLIA# [id number] SEE SCANNED REPORT{ PRELIM ID Date Data Source [id number] 11/24/2020 12:25:00 PM [facility] Value Range Interpretation Code Description Data Maura rce(s) Supporting Document(s) Influenza virus A Ag [Presence] in Nasopharynx by Immunoassa y NEGATIVE NORMAL: NEGATIVE [facility] Influenza virus B Ag [Presence] in Nasopharynx by Immunoassa y NEGATIVE NORMAL: NEGATIVE [facility] NEGATIVENEGATIVE PROCEDURAL CO NTROL VALID KIT LOT # _[id number] 11/24/20.5.TAD. KIT EXP DATE _01.23.21 11/24/20.1225.TAD.The Influenza A & B assay is a rapid molecular in vitro diagnostic testutilizing an isothermal nucleic acid amplification technology for thequalitative detection of influenza A and B viral RNA.Negative results do not preclude influenza virus infection and should not beused as the sole basis for diagnosis, treatment or other patient managementdecisions. ID Date Data Source [id number] 11/24/2020 12:41:00 PM [facility] Name Value Range Interpretation Code Description Data Maura rce(s) Supporting Document(s) Lactate dehydrogenase [Enzymatic activity/volume] in Serum o r Plasma 234 U/L 135 - 214 H [facility] ID Date Data Source [id number] 11/24/2020 12:41:00 PM [facility] Name Value Range Interpretation Code Description Data Maura rce(s) Supporting Document(s) COMPREHENSIVE METABOLIC PANEL [facility] COMPREHENSIVE METABOLIC PANEL Sodium [Moles/volume] in Serum or Plasma 134 mEq/L 134 - 153 [facility] Potassium [Moles/volume] in Serum or Plasma 3.9 mEq/L 3.6 - 5.0 [facility] Chloride [Moles/volume] in Serum or Plasma 94 mEq/L 98 - 107 L [facility] Carbon dioxide, total [Moles/volume] in Serum or Plasma 27 MEQ/L 22 - 30 [facility] Glucose [Mass/volume] in Serum or Plasma 104 MG/DL 70 - 99 H [facility] BUN 9 MG/DL 7 - 21 [facility] Creatinine [Mass/volume] in Serum or Plasma 1.0 MG/DL 0.7 - 1.5 [facility] BUN/CREAT 9 8 - 27 [facility] Protein [Mass/volume] in Serum or Plasma 7.6 G/DL 6.3 - 8.2 [facility] Albumin [Mass/volume] in Serum or Plasma 3.9 G/DL 3.9 - 5.0 [facility] Globulin [Mass/volume] in Serum by calculation 3.7 GM/DL 2.4 - 3.2 H [facility] A/G RATIO 1.1 0.8 - 2.0 [facility] Calcium [Mass/volume] in Serum or Plasma 8.6 MG/DL 8.4 - 10.2 [facility] Bilirubin.total [Mass/volume] in Serum or Plasma <0.7 MG/DL 0.2 - 1.3 [facility] Alkaline phosphatase [Enzymatic activity/volume] in Serum or Plasma 107 U/L 38 - 126 [facility] Aspartate aminotransferase [Enzymatic activity/volume] in Serum or Plasma 33 U/L 5 - 40 [facility] Alanine aminotransferase [Enzymatic activity/volume] in Seru m or Plasma 19 U/L 7 - 56 [facility] Anion gap 3 in Serum or Plasma 13.0 mmol/L 8.0 - 16.0 [facility] AGE 55 yrs [facility] al NON-AA GFR >60 mL/min [facility] ital AFR AMER GFR >60 mL/min [facility] Ho spital Male GFR In terprentation 20-49 yrs >60 mL/min Normal 50-59 yrs >56 mL/min Normal 60-69 yrs >49 mL/min Normal 70-79yrs >42 mL/min Normal 80 and above >35 mL/min Normal Female GFR Interpretation 20-39 yrs >60 mL/min Normal 40-49 yrs >58 mL/min Normal 50-59 yrs >51 mL/min Normal 60-69 yrs >45 mL/min Normal 70-79 yrs >39 mL/min Normal 80 and above >32 mL/min Normal ID Date Data Source [id number] 11/24/2020 12:26:00 PM [facility] Name Value Range Interpretation Code Description Data Maura rce(s) Supporting Document(s) BNP 596 PG/ML 0 - [address] [facility] al ID Date Data Source [id number] 11/24/2020 12:25:00 PM [facility] Value Range Interpretation Code Description Data Maura rce(s) Supporting Document(s) TROPONIN T <0.01 NG/ML 0.00 - 0.10 [facility] ospital TROPONIN T0.1 ng/ml Recommended as the c linical threshold value forTroponin T. ID Date Data Source [id number] 11/24/2020 11:56:00 AM [facility] Name Value Range Interpretation Code Description Data Marua rce(s) Supporting Document(s) Lactate [Moles/volume] in Serum or Plasma 2.3 MMOL/L 0.2 - 2.2 H [facility] ID Date Data Source [id number] 11/24/2020 11:56:00 AM [facility] Value Range Interpretation Code Description Data Maura rce(s) Supporting Document(s) pH of Serum or Plasma 7.37 7.32 - 7.43 [facility] pCO2 V 49.8 mm/HG 38.0 - 51.0 [facility] pO2 V 38.6 mm/HG 30.0 - 55.0 [facility] Bicarbonate [Moles/volume] in Venous blood 28.3 meq/L 22.0 - 29.0 [facility] TCO2 V 29.8 meq/L 22.0 - 29.[address] [facility] Base excess in Blood by calculation 2.2 -2.0 - 2.0 H [facility] O2 SAT V 71.6 % 40.0 - 85.0 [facility] ital ID Date Data Source [id number] 11/24/2020 11:52:00 AM EST [facility] Name Value Range Interpretation Code Description Data Maura rce(s) Supporting Document(s) CBC W/AUTOMATED DIFF [facility] COMPLETE BLOOD COUNT Leukocytes [#/volume] in Blood by Automated count 4.9 10^3/uL 4.2 - 1 1.0 [facility] Erythrocytes [#/volume] in Blood by Automated count 3.68 10^6/uL 4. 20 - 5.40 L [facility] Hemoglobin [Mass/volume] in Blood 13.2 g/dL 12.0 - 16.0 [facility] Hematocrit [Volume Fraction] of Blood by Automated count 38.4 % 3 7.0 - 47.0 [facility] Erythrocyte mean corpuscular volume [Entitic volume] b y Automated count 104.3 fL 81.0 - 101 H [facility] Erythrocyte mean corpuscular hemoglobin [Entitic mass] by Automated count 35.9 pg 27.0 - 34.0 H [facility] Erythrocyte mean corpuscular hemoglobin concentration [Mass/volume] by Automated count 34.4 g/dL 31.0 - 36.0 [facility] Erythrocyte distribution width [Ratio] by Automated count 13.6 % 11.5 - 14.5 [facility] Platelets [#/volume] in Blood by Automated count 201 10^3/uL 150 - 45 0 [facility] Platelet mean volume [Entitic volume] in Blood by Automated count 9.5 fL 7.4 - 10.4 [facility] Neutrophils/100 leukocytes in Blood by Automated count 74.0 % 37. 0 - 80.0 [facility] Lymphocytes/100 leukocytes in Blood by Manual count 9.5 % 25.0 - 40.0 L [facility] Monocytes/100 leukocytes in Blood by Automated count 15.3 % 3.0 - 8.0 H [facility] Eosinophils/100 leukocytes in Blood by Automated count 0.6 % 0.0 - 7.0 [facility] Basophils/100 leukocytes in Blood by Automated count 0.2 % 0.0 - 2.5 [facility] %IG 0.4 % 0.0 - 0.[address] [facility] al %NRBC 0.0 % 0.0 - 0.0 [facility] Neutrophils [#/volume] in Blood by Automated count 3.59 10^3/uL 2.00 - 6.90 [facility] Lymphocytes [#/volume] in Blood by Automated count 0.46 10^3/uL 0.60 - 3.40 L [facility] Monocytes [#/volume] in Blood by Automated count 0.74 10^3/uL 0.00 - 0.90 [facility] Eosinophils [#/volume] in Blood by Automated count 0.03 10^3/uL 0.00 - 0.70 [facility] Basophils [#/volume] in Blood by Automated count 0.01 10^3/uL 0.00 - 0.20 [facility] #IG 0.02 10^3/uL 0.00 - 0.10 [facility] #NRBC 0.00 10^3/uL 0.00 - 0.00 [facility] MANUAL DIFF NOT INDICATED [facility] RBC MORPH NOT INDICATED [facility] spital ID Date Data Source [id number] 12/02/2020 02:35:00 PM EST [facility] Name Value Range Interpretation Code Description Data Maura rce(s) Supporting Document(s) CULTURE BLOOD [facility] spital _CULTURE BLOOD_ TEST [place] [address] CLIA# [id number] SEE SCANNED REPORT{ PRELIM ID Date Data Source [id number] 11/14/2020 02:20:00 PM EST [facility] Name Value Range Interpretation Code Description Data Maura rce(s) Supporting Document(s) SARS coronavirus 2 RNA Detected [facility] This lab was ordered by [facility] and reported by [facility]. ID Date Data Source [id number] 11/10/2020 12:00:00 AM EST [facility] Name Value Range Interpretation Code Description Data Maura rce(s) Supporting Document(s) SARS coronavirus 2 Ag Negative [facility] This lab was ordered by [facility] and reported by [facility] ID Date Data Source [id number] 10/13/2020 02:52:00 PM EST [facility] [address] [place] [address] PHONE: [phone] FAX: [phone] Name .................. : JUANITO Daniels Acct Number.................. : [id number] ROOM. ................. : MR Number ................... : [id number] Stay type ............. : O/P Discharge Date......... ... : 10/12/20 Admit Date ......... : 10/12/20 Admit Phys .................... : MELANY WAJ Date of ....... : 1965 Family Phys ................... : SEQUEIRA Phone .................. : [phone] Age ................................ : 55 Film# .................. .:[id number] Sex ................................. : F Unsigned transcriptions are preliminary reports and do not represent a medical or legal document RENAL LIMITED [id number] COMPLETE:10/12/20 09:10 KNB 79428 (PROCEDURE REASON ACUTE KIDNEY FAILURE RENAL ULTRASOUND, 10/12/20: FINDINGS: In the left kidney, a 1.6 x 1.5 x 1.1 cm cystic structure is seen. There is no other focal renal lesion identified. There is no hydronephrosis or renal calculus. The right renal dimensions are 10.2 x 4.6 x 4.6 cm. The left renal dimensions are 10.0 x 5.2 x 5.4 cm. Bilateral ureteral jets were confirmed entering the urinary bladder. Bladder mucosal mass or calcu jett was not seen. It should be noted that evaluation of the urinary bladder is limited due to almost complete emptiness. IMPRESSION: Clinically significant finding not seen in kidneys or urinary bladder. Evaluation of the urinary bladder was limited due to almost complete emptiness. A 1.6 cm cyst seen in the left kidney. Electronically Reviewed and Signed By Everett Jimenez MD , 10/13/20 14:52, [facility] Transcribe Initials: SSR, Transcribe Date: 10/12/20 13:26, Dictation Date: Copy for: MELANY TAVAREZ via fax Copy for: [address] [place] [address] REC Page 1 of 1 Name Value Range Interpretation Code Description Data Mauar rce(s) Supporting Document(s) ID Date Data Source [id number] 10/02/2020 09:55:00 [place] [address] RESPIRATORY CARE REPORT ==== ---------NAME------- NUMBER SEX AGE ADMIT DISC. XRAY# F/C CYNDY Daniels [id number] F 55 09/27/20 09/28/20 [id number] MB4 O/P DATE OF : 1965 M/R# [id number] #: [id number] LOCATION: EMERGENCY DEPT EKG 37793 COMP LETE:09/28/20 02:12 [facility] [address] PHYSICIAN: SHIVANI Fox Name Value Range Interpretation Code Description Data Maura rce(s) Supporting Document(s) ID Date Data Source [id number] 10/02/2020 10:51:00 AM EST [facility] [address] [place] [address] PHONE: [phone] FAX: [phone] Name .................. : JUANITO Daniels Acct Number.................. : [id number] ROOM. ................. : 101-1 MR Number ................... : [id number] Stay type ............. : O/P Discharge Date......... ... : Admit Date ......... : 09/27/20 Admit Phys .................... : SHIVANI MENDEZ Date of ....... : 1965 Family Phys ................... : SEQUEIRA Phone .................. : [phone] Age ................................ : 55 Film# .................. .:[id number] Sex ................................. : F Unsigned transcriptions are preliminary reports and do not represent a medical or legal document CT HEAD(STROKE PROTOCOL) W/O 34109 COMPLETE:09/27/20 19:23 KJE 84938 Reason(s): blurry vision on and off, on Xarelto, h/o malignancy CT OF THE HEAD WITHOUT CONTRAST: INDICATION: Blurry vision. FINDINGS: No intra-axial or extra-axial collections of fluid. Ventricles and sulci unremarkable. No midline shift or mass effect. Visualized paranasal sinuses and mastoid air cells unremarkable. IMPRESSION: No acute intracranial process. While performing the above CT examination, radiation dose reduction was accomplished utilizing automated exposure control, adjusting of the mA and kV based on the patient's body size and/or the use of imperative reconstructive techniques. CT dose: 798.0 mGycm Electronically Reviewed and Signed By Jimmy Ashby M.D. , 10/02/20 10:51, [facility] Transcribe Initials: REYES , Transcribe Date: 09/28/20 00:50, Dictation Date: Copy for: EMERGENCY DEPT via modem Copy for: 710 MED REC DISCHARGED Page 1 of 1 Name Value Range Interpretation Code Description Data Maura rce(s) Supporting Document(s) ID Date Data Source [id number] 10/02/2020 10:51:00 [place] [address] PHONE: [phone] FAX: [phone] Name .................. : JUANITO Daniels Acct Number.................. : [id number] ROOM. ................. : 101-1 Number ................... : [id number] Stay type ............. : O/P Discharge Date......... ... : Admit Date ......... : 09/27/20 Admit Phys .................... : SHIVANI MENDEZ Date of ....... : 1965 Family Phys ................... : SEQUEIRA Phone .................. : [phone] Age ................................ : 55 Film# .................. .:[id number] Sex ................................. : F Unsigned transcriptions are preliminary reports and do not represent a medical or legal document CHEST PORTABLE [id number] COMPLETE:09/27/20 19:23 KJE [id number] Reason(s): TIA PORTABLE CHEST X-RAY: INDICATION: TIA FINDINGS: There is a right IJ port with the tip in the SVC. The right lung is clear. There is severe consolidation of the left upper lobe with a mass-like density measuring approximately 8.4 cm. This is unchanged compared to the prior examination from 08/25/20. The cardiac silhouette is normal in size and contour. There is no acute osseous abnormality. Spinal fusion rods are noted. IMPRESSION: Stable left upper lobe consolidation. Electronically Reviewed and Signed By Jimmy Ashby M.D. , 10/02/20 10:51, [place] Transcribe Initials: REYES , Transcribe Date: 09/28/20 00:46, Dictation Date: Copy for: EMERGENCY DEPT via mode Copy for: 710 MED REC DISCHARGED Page 1 of 1 Name Value Range Interpretation Code Description Data Maura rce(s) Supporting Document(s) ID Date Data Source [id number] 10/02/2020 10:48:00 AM EST [facility] [address] [place] [address] PHONE: [phone] FAX: [phone] Name .................. : JUANITO Daniels Acct Number.................. : [id number] ROOM. ................. : 101-1 MR Number ................... : [id number] Stay type ............. : O/P Discharge Date......... ... : Admit Date ......... : 09/27/20 Admit Phys .................... : SHIVANI VANESSA Date of ....... : 1965 Family Phys ................... : REGINE GAIL Phone .................. : [phone] Age ................................ : 55 Film# .................. .:[id number] Sex ................................. : F Unsigned transcriptions are preliminary reports and do not represent a medical or legal document CAROTID [id number] COMPLETE:09/27/20 20:58 [id number] Reason(s): TIA/CVA CAROTID DOPPLER ULTRASOUND: INDICATION: TIA. FINDINGS: The peak systolic velocity in the right common carotid artery is 92 cm/s. The peak systolic velocity in the right internal carotid artery is 84 cm/s. The right ratio is 0.2. The peak systolic velocity in the left common carotid artery is 156 cm/s. The peak systolic velocity in the left internal carotid artery is 88.5 cm/s. There is antegrade flow in the bilateral vertebral arteries. There is trace plaque in the bilateral carotid bulbs. IMPRESSION: There is less than 50% stenosis in the bilateral carotid arteries according to N ASCET criteria. NASCET was utilized while determining the amount of stenosis on the ultrasound of the carotids. Electronically Reviewed and Signed By Jimmy Ashby M.D. , 10/02/20 10:48, [place] Transcribe Initials: DZ , Transcribe Date: 09/27/20 23:47, Dictation Date: Copy for: EMERGENCY DEPT via modem Copy for: 710 MED REC DISCHARGED Page 1 of 1 Name Value Range Interpretation Code Description Data Maura rce(s) Supporting Document(s) ID Date Data Source [id number] 09/28/2020 06:50:00 [place] [address] HISTORY AND PHYSICALNAME: JUANITO Daniels ROOM#: 101-1DATE OF : 1965 MR#: [id number] PHYS: Osmel Alvarez MD, PC DATE: 09/27/20CHIEF COMPLAINT: Blurred vision in the left eye.HISTORY OF PRESENT ILLNESS:This is a 55-year-old female with a history of lung cancer. She came to the ER today as she had an episode ofblurred vision in her left eye. It lasted today approximately 20-30 minutes and then resolved spontaneously.She had had a very short episode of the same thing, blurred vision in the left eye only the previous day whichlasted only 5 minutes. She had been at her oncologist's office earlier in the day to have chemo, but was unableto due to a decrease in her k idney function and a low blood pressure. Upon arrival in the ER, her bloodpressure was 103/64. Heart rate was 71. Respirations were 18. O2 saturation was 100%. Temperature was97.8. The blurred vision resolved upon arrival in the Emergency Department. She had a STAT EKG whichshowed sinus rhythm at 76. She had a STAT CT of the brain with stroke protocol without contrast that showedno intracranial process.LABORATORY STUDIES:White count was 7.0, hemoglobin was 9.5, hematocrit was 29.8, MCV was 116, platelets 295. Sodiumwas 136, potassium was 4.2, chloride 95, CO2 32. Blood sugar as 90. BUN was 13. Creatinine was1.4. Magnesium was low at 1.2 and a magnesium run was given at 2 grams. PT was 19.8, INR was 1.6.Troponin was less than 0.01. Neurological examination was negative. She had had no complaints ofheadache. No double vision. No fever. No chills. No lightheadedness. No vertigo. No nausea. Novomiting. No light sensitivity. No weakness of extremities. No tingling or numbness. Assessment wasdone. Patient will be admitted, placed on telemetry, started on aspirin, carotid ultrasound will beobtained. Patient will be admitted observation status on telemetry to the service of Dr. Alvarez.ALLERGIES:PENICILLIN, SEAFOOD.SOCIAL HISTORY:She is . She quit smoking in 2018. She rarely drinks alcohol. She does not use recreationaldrugs.FAMILY HISTORY:Reviewed and is noncontributory.PAST MEDICAL HISTORY: 1. Lungs cancer with mets to the bone 2. Vertebral disc disease 3. History of pulmonary emboli 4. History of DVT [address] [place] [address] HISTORY AND PHYSICALNAME: JUANITO Daniels ROOM#: 101-1DATE OF : 1965 MR#: [id number] PHYS: Osmel Alvarez MD, PC DATE: 09/27/20 5. History of atrial fibrillation, currently in sinus rhythm. She is on Xarelto. 6. History of COPDPAST SURGICAL HISTORY: 1. Appendectomy 2. Rods in the T-spine secondary to a crush T7, T7. 3. D&C 4. Surgery for heel spur 5. Septoplasty 6. Tonsillectomy 7. Tubal ligationHOME MEDICATIONS: 1. Albuterol HFA 1 puff q 4-6 hours p.r.n. shortness of breath or wheeze 2. Breo Ellipta 200-25 mcg 1 inhalation daily 3. Bystolic 5 mg p.o. daily 4. Cephalexin 500 mg t.i.d., placed on by her oncologist as he thought she had some redness in her legs. 5. Diltiazem 180 mg q h.s. 6. Lasix 20 mg daily 7. Loratadine 10 mg daily 8. Magnesium 400 mg daily 9. Pantoprazole 40 mg p.o. daily 10. Potassium 20 mEq p.o. daily 11. Spiriva Respimat 2 inhalations daily 12. Xarelto 10 mg dailyREVIEW OF SYSTEMS:No complaint of headache. Complaint of blurred vision in left eye, as noted in HPI. No double vision. Nofever, no chills, no tinnitus, no hoarseness. No difficulty swallowing. No lightheadedness. No vertigo.Cardiovascular: History of atrial fibrillation, currently in sinus rhythm. No complaints of chest pain, shortnessof breath, palpitations or edema. Respiratory: History of lung cancer. No current hemoptysis, orthopnea orwheeze. GI: No nausea, vomiting or diarrhea. No hematochezia. No melena. No complaints of abdominalpain. : No hematuria, dysuria or frequency. Musculoskeletal: No joint redness or swelling. Does have metsto the bone. Has rods in her back. Endocrine: No polyuria, polydipsia, polyphagia. Hematological: She has ahistory of anemia. Neurological: No history of seizures. No paresthesias, paralysis. Psychological: No anxiety,depression or suicidal ideation. [address] [place] [address] HISTORY AND PHYSICALNAME: JUANITO Daniels ROOM#: 101-1DATE OF : 1965 MR#: [id number] PHYS: Osmel Alvarez MD, PC DATE: 09/27/20PHYSICAL EXAMINATION:GENERAL: 55-year-old cooperative female in no acute distress. Weight 188 pounds. Height 60 inches. BMI36.75.VITAL SIGNS: Patient is alert and oriented x3.HEENT: Pupils equal and reactive to light. EOMs are intact. Corneas and sclerae are clear. Conjunctivae arenormal. No facial asymmetry. TMs are pearly bilaterally. Pharynx, tongue, and gums pink and moist. Tongueis midline.NECK: Supple without lymphadenopathy. No thyromegaly or goiter. Carotids 2+ without bruit.CHEST: Clear to auscultation without wheezes or retraction.HEART: Regular.ABDOMEN: Benign. Bowel sounds positive./RECTAL: Not done.EXTREMITIES: Equal strength. Full range of motion. No cyanosis, clu bbing or edema. Peripheral pulsesequal and palpable bilaterally. Cranial nerves II-XII grossly intact.IMPRESSION/PLAN: 1. TIA. Discussed with Dr. Alvarez. Will place on telemetry observation status. Get STAT carotid ultrasound. Aspirin 81 mg p.o. daily. 2. History of hypertension. Was hypotensive earlier. Blood pressure is soft at 103/64. Will hold her Losartan. 3. History of atrial fibrillation. Remains in sinus rhythm. Continue Xarelto. 4. History of lung cancer. Treatment per oncology. 5. Patient will be admitted to the service of Dr. Alvarez observation status.DD: CARYN Nava 09/28/20 17:45DT: SONYA 09/28/20 18:28DS: CARYN Nava 10/02/20 10:11 3 Name Value Range Interpretation Code Description Data Amura rce(s) Supporting Document(s) ID Date Data Source [id number] 10/01/2020 11:14:00 [place] [address] DISCHARGE SUMMARYNAME: JUANITO Daniels ROOM#: 101-1DATE OF : 1965 MR#: [id number] PHYS: Osmel Alvarez MD, PC DATE: 09/27/20 DISCHARGED: 09/28/20CHIEF COMPLAINT: Blurred vision in the left eye.HISTORY OF PRESENT ILLNESS:This is a 55-year-old female who was admitted observation status, having presented to the ER after having anepisode of left eye blurriness. See H&P for further details on the admission. The patient was admittedobservation status and placed on telemetry. She has history of lung cancer, had been in her oncologist's officeearlier in the day and her blood pressure was slightly low. In the ER, it was 103/64. She had a STAT CT of thebrain with stroke protocol without contrast that showed no intracranial process.LABORATORY STUDIES:White count on admission was 7.0 and on discharge was 4.8. H&H was 9.5/29.8 and on discharge was 9/28.0.She was given a dose of Procrit. Platelets were within normal limits at 95 and 94 on discharge. Electrolyteswere normal. BUN on admission was 13. Creatinine was 1.4 and on discharge was 12 and creatinine was 1.3.Her magnesium in the emergency room had been low at 1.2. She was given magnesium 2 grams. Recheck inthe AM was 1.5 and she was given another 2 grams. She has a history of low magnesium. Her p.o. wassubsequently then increased from one a day to one twice a day. Serial Troponins were 0.01. She has a historyof atrial fibrillation and PE. She continues on Xarelto. She continues in sinus rhythm. EKG in the ER showedsinus rhythm at 76. She was on telemetry and remained in sinus rhythm.RADIOLOGY STUDIES:Negative CT of the head. She had an ultrasound of the carotid arteries which showed trace plaque in thebilateral carotid bulbs, less than 50% stenosis in the bilateral carotid arteries according to NASCET criteria.She had no further episodes of left eye blurred vision. She was up ambulating without difficulty and on aki83ox, was discharged home in stable condition.DISCHARGE DIAGNOSIS:1. TIADISCHARGE PLAN:1. Discharged to home.2. Regular diet.3. Call the office of Dr. Alvarez on Tuesday 10/02 at 9 AM for a follow up appointment and to schedule an echo and a Holter monitor.4. Stop Losartan. Increase magnesium to twice a day and start an enteric coated aspirin 81 mg daily.DISCHARGE M EDICATIONS:1. Spiriva Respimat continue 2 puffs daily2. Albuterol 2 puffs p.o. q 4-6 hours p.r.n. shortness of breath or wheeze [address] [place] [address] DISCHARGE SUMMARYNAME: JUANITO Daniels ROOM#: 101-1DATE OF : 1965 MR#: [id number] PHYS: [id number] DATE: 09/27/20 DISCHARGED: 09/28/20 3. Bystolic 5 mg p.o. daily 4. Pantoprazole 40 mg p.o. daily 5. Lasix 20 mg p.o. daily 6. Diltiazem 180 mg p.o. at bedtime 7. Loratadine 10 mg p.o. daily 8. Breo Ellipta 1 inhalation daily 9. Xarelto 10 mg p.o. daily 10. Potassium chloride 10 mEq p.o. daily 11. Enteric coated aspirin 81 mg daily 12. Increase magnesium to 400 mg twice a day and stop LosartanFOLLOW UP:Follow up with oncologist is already scheduled.Patient was discharged in stable condition.DD: CARYN Nava 10/01/20 21:34DT: SONYA 10/01/20 23:01DS: CARYN Nava 10/02/20 10:11 2 Name Value Range Interpretation Code Description Data Maura rce(s) Supporting Document(s) ID Date Data Source [id number] 09/28/2020 08:59:00 AM EST [facility] (Osmel Alvarez MD) Name Value Range Interpretation Code Description Data Maura rce(s) Supporting Document(s) Troponin T.cardiac [Mass/volume] in Serum or Plasma Laborato ry test result 0.00-0.10 [facility] (Osmel Alvarez MD) TROPONIN T 0.1 ng/ml Recommended as the clinical th reshold value for Troponin T. ID Date Data Source [id number] 09/28/2020 09:27:00 AM [facility] Name Value Range Interpretation Code Description Data Maura rce(s) Supporting Document(s) TROPONIN T <0.01 NG/ML 0.00 - 0.10 [facility] TROPONIN T0.1 ng/ml Recommended as the c linical threshold value forTroponin T. ID Date Data Source [id number] 09/28/2020 06:30:00 AM EST [facility] (Osmel Alvarez MD) Name Value Range Interpretation Code Description Data Maura rce(s) Supporting Document(s) Laboratory test finding (navigational concept) 4.8 10^3/uL 4.2-11.0 [facility] (Osmel Alvarez MD) Laboratory test finding (navigational concept) Laboratory test result [facility] (Osmel Alvarez MD) COMPLETE BLOOD COUNT Laboratory test finding (navigational concept) 2.42 10^6/uL 4 .20-5.40 Below low normal [facility] (Osmel Alvarez MD) Laboratory test finding (navigational concept) 9.0 g/dL 1 2.0-16.0 Below low normal [facility] (Osmel Alvarez MD) Laboratory test finding (navigational concept) 28.0 % 3 7.0-47.0 Below low normal [facility] (Osmel Alvarez MD) Laboratory test finding (navigational concept) 37.2 pg 2 7.0-34.0 Above high normal [facility] (Osmel Alvarez MD) Laboratory test finding (navigational concept) 32.1 g/dL 31.0-36.0 [facility] (Osmel Alvarez MD) Laboratory test finding (navigational concept) 115.7 fL 8 1.0-101 Above high normal [facility] (Osmel Alvarez MD) Laboratory test finding (navigational concept) 294 10^3/uL 150-450 [facility] (Osmel Alvarez MD) Laboratory test finding (navigational concept) 17.3 % 1 1.5-14.5 Above high normal [facility] (Osmel Alvarez MD) Laboratory test finding (navigational concept) 9.4 fL 7.4-10.4 [facility] (Osmel Alvarez MD) Laboratory test finding (navigational concept) 14.5 % 2 5.0-40.0 Below low normal [facility] (Osmel Alvarez MD) Laboratory test finding (navigational concept) 50.0 % 37.0-80.0 [facility] (Osmel Alvarez MD) Laboratory test finding (navigational concept) 29.0 % 3.0-8.0 Above high normal [facility] (Osmel Alvarez MD) Laboratory test finding (navigational concept) 1.7 % 0.0-2.5 [facility] (Osmel Alvarez MD) Laboratory test finding (navigational concept) 4.0 % 0.0-7.0 [facility] (Osmel Alvarez MD) Laboratory test finding (navigational concept) 0.8 % 0.0-0.0 Above high normal [facility] (Osmel Alvarez MD) Laboratory test finding (navigational concept) 2.38 10^3/uL 2.00-6.90 [facility] (Osmel Alvarez MD) Laboratory test finding (navigational concept) 0.69 10^3/uL 0.60-3.40 [facility] (Osmel Alvarez MD) Laboratory test finding (navigational concept) 0.0 % 0.0-0.0 [facility] (Osmel Alvarez MD) Laboratory test finding (navigational concept) 1.38 10^3/uL 0 .00-0.90 Above high normal [facility] (Osmel Alvarez MD) Laboratory test finding (navigational concept) 0.19 10^3/uL 0.00-0.70 [facility] (Osmel Alvarez MD) Laboratory test finding (navigational concept) 0.08 10^3/uL 0.00-0.20 [facility] (Osmel Alvarez MD) Laboratory test finding (navigational concept) Laboratory test result [facility] (Osmel Alvarez MD) Laboratory test finding (navigational concept) 0.00 10^3/uL 0.00-0.00 [facility] (Osmel Alvarez MD) Laboratory test finding (navigational concept) 0.04 10^3/uL 0.00-0.10 [facility] (Osmel Alvarez MD) Laboratory test finding (navigational concept) 45 % 37-80 [facility] (Osmel Alvarez MD) Laboratory test finding (navigational concept) 0 % 0-5 [facility] (Osmel Alvarez MD) Laboratory test finding (navigational concept) 39 % 25-40 [facility] (Osmel Alvarez MD) Laboratory test finding (navigational concept) 5 % 0-7 [facility] (Osmel Alvarez MD) Laboratory test finding (navigational concept) 10 % 3-8 Above high normal [facility] (Osmel Alvarez MD) Laboratory test finding (navigational concept) Laboratory test result [facility] (Osmel Alvarez MD) Laboratory test finding (navigational concept) 1 % 0-2 [facility] (Osmel Alvarez MD) ID Date Data Source [id number] 09/28/2020 06:30:00 AM EST [facility] (Osmel Alvarez MD) Name Value Range Interpretation Code Description Data Maura rce(s) Supporting Document(s) Laboratory test finding (navigational concept) Laboratory test result [facility] (Osmel Alvarez MD) COMPREHENSIVE METABOLIC PANEL Laboratory test finding (navigational concept) 99 meq/L 98-107 [facility] (Osmel Alvarez MD) Laboratory test finding (navigational concept) 138 meq/L 134-153 [facility] (Osmel Alvarez MD) Laboratory test finding (navigational concept) 4.7 meq/L 3.6-5.0 [facility] (Osmel Alvarez MD) Laboratory test finding (navigational concept) 96 mg/dL 65-110 [facility] (Osmel Alvarez MD) Laboratory test finding (navigational concept) 31 meq/L 22-30 Above high normal [facility] (Osmel Alvarez MD) Laboratory test finding (navigational concept) 11 mg/dL 7-21 [facility] (Osmel Alvarez MD) Laboratory test finding (navigational concept) 1.3 mg/dL 0.7-1.5 [facility] (Osmel Alvarez MD) Laboratory test finding (navigational concept) 8 8-27 [facility] (Osmel Alvarez MD) Laboratory test finding (navigational concept) 3.5 g/dL 3 .9-5.0 Below low normal [facility] (Osmel Alvarez MD) Laboratory test finding (navigational concept) 5.8 g/dL 6 .3-8.2 Below low normal [facility] (Osmel Alvarez MD) Laboratory test finding (navigational concept) 2.3 GM/DL 2 .4-3.2 Below low normal [facility] (Osmel Alvarez MD) Laboratory test finding (navigational concept) 1.5 0.8-2.0 [facility] (Osmel Alvarez MD) Laboratory test finding (navigational concept) 9.1 mg/dL 8.4-10.2 [facility] (Osmel Alvarez MD) Laboratory test finding (navigational concept) Laboratory test resu lt 0.2-1.3 [facility] (Osmel Alvarez MD) Laboratory test finding (navigational concept) 19 U/L 7-56 [facility] (Osmel Alvarez MD) Laboratory test finding (navigational concept) 105 U/L 38-126 [facility] (Osmel Alvarez MD) Laboratory test finding (navigational concept) 24 U/L 5-40 [facility] (Osmel Alvarez MD) Laboratory test finding (navigational concept) 55 yrs [facility] (Osmel Alvarez MD) Laboratory test finding (navigational concept) 8.0 mmol/L 8.0-16.0 [facility] (Osmel Alvarez MD) Laboratory test finding (navigational concept) 45 mL/min [facility] (Osmel Alvarez MD) Laboratory test finding (navigational concept) 55 mL/min [facility] (Osmel Alvarez MD) Male GFR Interprentation 20-49 yrs >60 mL/min Normal 50-59 yrs >56 mL/min Normal 60-69 yrs >49 mL/min Normal 70-79yrs >42 mL/min Normal 80 and above >35 mL/min Normal Female GFR Interpretation 20-39 yrs >60 mL/min Normal 40-49 yrs >58 mL/min Normal 50-59 yrs >51 mL/min Normal 60-69 yrs >45 mL/min Normal 70-79 yrs >39 mL/min Normal 80 and above >32 mL/min Normal ID Date Data Source [id number] 09/28/2020 06:30:00 AM EST [facility] (Osmel Alvarez MD) Name Value Range Interpretation Code Description Data Maura rce(s) Supporting Document(s) Magnesium [Mass/volume] in Serum or Plasma 1.5 mg/dL 1.7-2.2 Belo w low normal [facility] (Osmel Alvarez MD) ID Date Data Source [id number] 09/28/2020 07:49:00 AM [facility] Name Value Range Interpretation Code Description Data Maura rce(s) Supporting Document(s) Magnesium [Mass/volume] in Serum or Plasma 1.5 MG/DL 1.7 - 2.2 L [facility] ID Date Data Source [id number] 09/28/2020 07:49:00 AM [facility] Name Value Range Interpretation Code Description Data Maura rce(s) Supporting Document(s) COMPREHENSIVE METABOLIC PANEL [facility] COMPREHENSIVE METABOLIC PANEL Sodium [Moles/volume] in Serum or Plasma 138 mEq/L 134 - 153 [facility] Potassium [Moles/volume] in Serum or Plasma 4.7 mEq/L 3.6 - 5.0 [facility] Chloride [Moles/volume] in Serum or Plasma 99 mEq/L 98 - 107 [facility] Carbon dioxide, total [Moles/volume] in Serum or Plasma 31 MEQ/L 22 - 30 H [facility] Glucose [Mass/volume] in Serum or Plasma 96 MG/DL 65 - 110 [facility] BUN 11 MG/DL 7 - 21 [facility] Creatinine [Mass/volume] in Serum or Plasma 1.3 MG/DL 0.7 - 1.5 [facility] BUN/CREAT 8 8 - 27 [facility] Protein [Mass/volume] in Serum or Plasma 5.8 G/DL 6.3 - 8.2 L [facility] Albumin [Mass/volume] in Serum or Plasma 3.5 G/DL 3.9 - 5.0 L [facility] Globulin [Mass/volume] in Serum by calculation 2.3 GM/DL 2.4 - 3.2 L [facility] A/G RATIO 1.5 0.8 - 2.0 [facility] Calcium [Mass/volume] in Serum or Plasma 9.1 MG/DL 8.4 - 10.2 [facility] Bilirubin.total [Mass/volume] in Serum or Plasma <0.7 MG/DL 0.2 - 1.3 [facility] Alkaline phosphatase [Enzymatic activity/volume] in Serum or Plasma 105 U/L 38 - 126 [facility] Aspartate aminotransferase [Enzymatic activity/volume] in Serum or Plasma 24 U/L 5 - 40 [facility] Alanine aminotransferase [Enzymatic activity/volume] in Seru m or Plasma 19 U/L 7 - 56 [facility] Anion gap 3 in Serum or Plasma 8.0 mmol/L 8.0 - 16.0 [facility] AGE 55 yrs [facility] NON-AA GFR [facility] mL[facility] A[facility] AMER GFR 55 mL/min [facility] Male GFR In terprentation 20-49 yrs >60 mL/min Normal 50-59 yrs >56 mL/min Normal 60-69 yrs >49 mL/min Normal 70-79yrs >42 mL/min Normal 80 and above >35 mL/min Normal Female GFR Interpretation 20-39 yrs >60 mL/min Normal 40-49 yrs >58 mL/min Normal 50-59 yrs >51 mL/min Normal 60-69 yrs >45 mL/min Normal 70-79 yrs >39 mL/min Normal 80 and above >32 mL/min Normal ID Date Data Source [id number] 09/28/2020 07:43:00 AM EST [facility] Name Value Range Interpretation Code Description Data Maura rce(s) Supporting Document(s) CBC W/AUTOMATED DIFF [facility] COMPLETE BLOOD COUNT Leukocytes [#/volume] in Blood by Automated count 4.8 10^3/uL 4.2 - 1 1.0 [facility] Erythrocytes [#/volume] in Blood by Automated count 2.42 10^6/uL 4. 20 - 5.40 L [facility] Hemoglobin [Mass/volume] in Blood 9.0 g/dL 12.0 - 16.0 L [facility] Hematocrit [Volume Fraction] of Blood by Automated count 28.0 % 3 7.0 - 47.0 L [facility] Erythrocyte mean corpuscular volume [Entitic volume] b y Automated count 115.7 fL 81.0 - 101 H [facility] Erythrocyte mean corpuscular hemoglobin [Entitic mass] by Automated count 37.2 pg 27.0 - 34.0 H [facility] Erythrocyte mean corpuscular hemoglobin concentration [Mass/volume] by Automated count 32.1 g/dL 31.0 - 36.0 [facility] Erythrocyte distribution width [Ratio] by Automated count 17.3 % 11.5 - 14.5 H [facility] Platelets [#/volume] in Blood by Automated count 294 10^3/uL 150 - 45 0 [facility] Platelet mean volume [Entitic volume] in Blood by Automated count 9.4 fL 7.4 - 10.4 [facility] Neutrophils/100 leukocytes in Blood by Automated count 50.0 % 37. 0 - 80.0 [facility] Lymphocytes/100 leukocytes in Blood by Manual count 14.5 % 25.0 - 40.0 L [facility] Monocytes/100 leukocytes in Blood by Automated count 29.0 % 3.0 - 8.0 H [facility] Eosinophils/100 leukocytes in Blood by Automated count 4.0 % 0.0 - 7.0 [facility] 1.7 %IG 0.8 % 0.0 - 0.[address] [facility] %NRBC 0.0 % 0.0 - 0.[facility] Neut[facility] [#/volume] in Blood by Automated count 2.38 10^3/uL 2.00 - 6.90 [facility] Lymphocytes [#/volume] in Blood by Automated count 0.69 10^3/uL 0.60 - 3.40 [facility] Monocytes [#/volume] in Blood by Automated count 1.38 10^3/uL 0.00 - 0.90 H [facility] Eosinophils [#/volume] in Blood by Automated count 0.19 10^3/uL 0.00 - 0.70 [facility] Basophils [#/volume] in Blood by Automated count 0.08 10^3/uL 0.00 - 0.20 [facility] #IG 0.04 10^3/uL 0.00 - 0.10 [facility] #NRBC 0.00 10^3/uL 0.00 - 0.00 [facility] MANUAL DIFF SEE BELOW [facility] ital Segmented neutrophils/100 leukocytes in Blood by Manual count 45 % 37 - 80 [facility] BAND 0 % 0 - 5 [facility] %LYMPH 39 % 25 - 40 [facility] %MONO 10 % 3 - 8 [facility] %EOS 5 % 0 - 7 [facility] 1 RBC MORPH NOT INDICATED [facility] ID Date Data Source [id number] 09/28/2020 02:54:00 AM EST MEDENT (Osmel Alvarez MD) Name Value Range Interpretation Code Description Data Maura rce(s) Supporting Document(s) Troponin T.cardiac [Mass/volume] in Serum or Plasma Laborato ry test result 0.00-0.10 SORIN (Osmel Alvarez MD) TROPONIN T 0.1 ng/ml Recommended as the clinical th reshold value for Troponin T. ID Date Data Source [id number] 09/28/2020 03:14:00 AM EST [facility] Name Value Range Interpretation Code Description Data Maura rce(s) Supporting Document(s) TROPONIN T <0.01 NG/ML 0.00 - 0.10 [facility] ospital TROPONIN T0.1 ng/ml Recommended as the c linical threshold value forTroponin T. ID Date Data Source [id number] 09/27/2020 05:50:00 PM EST [facility] 1 OrderSheet [facility] Emergency Department [address] [place] [address] Phone #: [phone]- [phone] 09/27/2020 17:38 Patient: CHANTALE SOLOMON Sex: F : 1965 Age: 55yWEIGHT:83.9 kg (S) HEIGHT:60 inches (S) BMI:36.1ALLERGIES: Penicillins, SeafoodCHIEF COMPLAINT: L eye, discomfort, L eye:, blurred visionDIAGNOSIS: Transient cerebral ischemiaLAB ORDERSOrder Description Priority Entered Acknowledged InitialedCBC w Diff STAT 18:31 09/27/2020 18:55 [facility] ED, Jesse ER M.D.; [id number] STAT 18:31 09/27/2020 18:55 [facility] ED, Jesse ER M.D.; [id number] STAT 18:31 09/27/2020 18:55 [facility] ED, Jesse ER M.D.; Rxdo1EA/INR STAT 18:31 09/27/2020 18:55 [facility] ED, Jesse ER M.D.; [id number]-S STAT 18:31 09/27/2020 18:55 [facility] ED, Jesse ER M.D.; [id number] STUDY ORDERSOrder Description Priority Entered Acknowledged InitialedChest Portable 1 STAT 18:31 09/27/2020 18:34 [facility] [place] [facility] TechFlorian(Oxygen?(No)) Leiad; Tech1 Reason for Study: TIACT HEAD (STROKE STAT 18:31 09/27/2020 18:34 [facility], Jesse ER(Oxygen?(No)) Leida; Tech1(IV?(Yes)) Reason for Study: blurry vision on and off, on xarelto, h/o malignancyUS Carotid STAT 20:58 09/27/2020 21:06 Sorbero,(Oxygen?(No)) Bel [place] R.N., M.D.; Reason for Study: TIA/CVA 2 OrderSheet [facility] Emergency Department [address] [place] [address] Phone #: ext- [phone] 09/27/2020 17:38 Patient: CHANTALE SOLOMON Sex: F : 1965 Age: 55yMEDICATION/IV/DRIP/FLUID ORDERSOrder Description Priority Entered Acknowledged InitialedGENERAL ORDERSOrder Description Priority Entered Acknowledged InitialedCardiac Monitor 18:31 09/27/2020 18:56 Kody(continuous) [facility] [place] ED, Jesse ER M.D.; Ceph1LAB 18:31 09/27/2020 18:56 [facility] ED, Jesse ER M.D.; Tech1[Electronically signed by Jacquelyn Chanel R.N. (23:04 09/27/2020)][Electronically signed by Bel [place] M.D. (23:31 09/27/2020)][Electronically locked by Jacquelyn Chanel R.N. (23:04 09/27/2020)] Name Value Range Interpretation Code Description Data Maura rce(s) Supporting Document(s) ID Date Data Source [id number] 09/27/2020 05:50:00 PM [place] [id number] Medication Reconciliation Report [facility] Emergency Department [address] [place] [address] Phone #: ext- [phone] 09/27/2020 17:38 Patient: CHANTALE SOLOMON Sex: F : 1965 Age: 55yWeight: 83.9 kgHeight/Length: 60 in.BMI: 36.1ALLERGIES: Penicillins, SeafoodThe patient's Home Medications are listed below:THE FOLLOWING MEDICATIONS NEED TO BE RECONCILED: Btstolic dilTIAZem HCl Oral Pantoprazole Sodium Oral Pharmacy [place] [facility] Inhalation Symbicort Inhalation Tylenol Oral Xarelto OralThe source(s) of the original Home Medication information:patientThe following Medications were given to the patient in the Emergency Department:None.The following Medications were prescribed to the patient:None. Name Value Range Interpretation Code Description Data [facility] rce(s) Supporting Document(s) ID Date Data Source [id number] 09/27/2020 05:50:00 PM [facility] 1 Medication Administration Record [facility] Emergency Department [address] [place] [address] Phone #: ext- [phone] 09/27/2020 17:38 Patient: CHANTALE SOLOMON A cct#: [id number] Sex: F : 1965 Age: 55yWeight: 83.9 kgHeight/Length: 60 inBMI: 36.1ALLERGIES: Penicillins, SeafoodDate/Time Medication Administered Medication Ordered Name Value Range Interpretation Code Description Data Maura rce(s) Supporting Document(s) ID Date Data Source [id number] 09/27/2020 05:50:00 PM [facility] 1 General Instructions [facility] Emergency Department [address] [place] [address] Phone #: ext [phone] 09/27/2020 17:38 Patient: CHANTALE SOLOMON Sex: F : 1965 Age: 55ySingle acute transient ischemic attack consistent with the amaurosis fugax syndrome.(Electronically signed by Bel [place] M.D. 09/27/2020 23:31) Name Value Range Interpretation Code Description Data Maura rce(s) Supporting Document(s) ID Date Data Source [id number] 09/27/2020 05:50:00 PM [facility] 1 Clinical Report - Nurses [facility] Emergency Department [address] [place] [address] Phone #: ext [phone] 09/27/2020 17:38 Patient: CHANTALE SOLOMON Sex: F : 1965 Age: 55yTRIAGEArrived by private vehicle. Historian: patient.Triage time: 18:03 09/27/2020. Acuity: LEVEL 4.Chief Complaint: LEFT EYE PROBLEM. DISCOMFORT and BLURRED VISION TO LEFT EYE.18:03 09/27/20. Alert. No acute distress.This is a recurrent problem. (blurry vision 20 minutes ago now resolved, had episode yesterday lasting 5minutes,). ( Has had similar blurring eyes Today at Dr Steel's office Oncology unable to have chemotoday due to , kidney function was low, hypotension).Treatment RARE/ENDANGERED SPECIES SPECIALIST:None.SEPSIS SCREEN: SIRS Screen negative. Sepsis Screen negative. No suspected or confirmed signs ofinfection present. --18:12 09/27/20 Chata Barrera RN18:03 09/27/20. BP: 103/64. MAP: 77. HR: 71. RR: 18. O2 saturation: 100%. Temp: 97.8 F. Pain levelnow: 4/10. Describes the quality as sharp. It has been intermittent. Pain level at maximum: 4/10. Noradiation noted. No provoking / relieving factors. --18:12 09/27/20 Chata Barrera RN.Weight: 83.9 kg stated. Height/Length: 60 inches Per Patient. BMI: 36.1. --18:02 09/27/20 MARK Harris.MedicationsBtstolic. dilTIAZem HCl Oral. Panto prazole Sodium Oral. Pharmacy [facility]. Spiriva HandiHaler Inhalation. Symbicort Inhalation. Tylenol Oral. Xarelto Oral. --18:08 09/27/20 Chata Barrera RN.AllergiesPenicillins.Seafood. --18:08 09/27/20 Chata Barrera RN.PROBLEMS:Cancer: Active. (Lung, mets to bones). --18:08 09/27/20 Chata Barrera RNIntervertebral Disc Disease. 2 Clinical Report - Nurses [facility] Emergency Department [address] [place] [address] Phone #: ext- [phone] 09/27/2020 17:38 Patient: CHATNALE SOLOMON Sex: F : 1965 Age: 55yPulmonary Embolism.Metabolic disease: (Bone).Chronic Back Pain.DVT - Deep Venous Thrombosis.Heart Disease.Atrial Fibrillation.Lung Cancer. --18:08 hCata Barrera RN.18:03 09/27/20. Medication/allergy information source: the patient. --18:12 09/27/20 Chata Barrera RN.ADDITIONAL SURGERIES:Appendectomy.Back Surgery (Rods in t spine, crushed t7 t8).Dilatation Curettage.Foot surgery.Heel spur.Septoplasty.Tonsillectomy.Tubal Ligation. --18:08 09/27/20 Chata Barrera RN.Pjuhulo42:03 09/27/20.PAST MEDICAL HX: Immunizations: up-to-date.SOCIAL HX: Former smoker, end date 01/2018. Occasional alcohol use. No drug use. She was offeredHIV testing but declined and hepatitis C testing but declined. She has not traveled outside the [place]Infectious disease exposure: No infectious disease exposure. (Negative COVID-19 screen). Patient is not aknown carrier of tuberculosis, hepatitis, HIV, MRSA or VRE. Patient is not a known carrier of CRE.SELF HARM ASSESSMENT: Self harm assessment was performed. The patient answered "no" to thequestion(s) "Do you have thoughts of harming or killing yourself?" and "Have you recently had thoughtsabout harming or killing others?".ABUSE ASSESSMENT: Abuse assessment. The patient had positive responses to the question(s) "Do youfeel safe in your home?" (yes). No report of abuse.NUTRITIONAL RISK ASSESSMENT: The nutritional risk assessment revealed no deficiencies.FUNCTIONAL ASSESSMENT: Functional assessment: no impairments noted.LEARNING NEEDS ASSESSMENT: The learning needs assessment revealed no barriers.FALL RISK ASSESSMENT: Fall risk assessment completed. Risk factors identified include patient 3 Clinical Report - Nurses [facility] Emergency Department [address] [place] [address] Phone #: ext- [phone] 09/27/2020 17:38 [id number] Sex[facility] F : 1965 Age: 55y impairment of mobility. Fall interventions initiated. Patient placed on stretcher. Side rails up x2. Bed in low position. Brakes on. Patient identified as a fall risk by chart flagged. Call light in reach of patient. Instructed not to get up without assistance. Instructions given to patient including fall prevention information. Verbalizes understanding. SKIN INTEGRITY ASSESSMENT: Skin integrity risk assessment completed. No skin integrity risk identified. --18:12 09/27/20 Chtaa Barrera RN.PHYSICAL VHYKVNLMYB31:12 09/27/20. Ambulatory to room.GENERAL / NEURO / PSYCH: Alert. Appears in no acute distress.HEENT: No facial asymmetry noted. Visual acuity with corrective lenses: left eye 20/20; right eye 20/25minus one letter; both eyes 20/20. Pupils equal, round and reactive to light. EOM intact.RESPIRATORY: Respirations not labored.SKIN: Skin is warm. --18:13 09/27/20 Chata Barrera RN.NURSING PROGRESS NOTES18:03 09/27/20. Head of bed elevated. Two patient identifiers checked. Call light placed in reach. Bedplaced in lowest position. Brakes of bed on. Patient ready for evaluation- ED physician and PA notified.-- 18:12 09/27/20 MARK Sales. EKG time: (19:02 09/27/2020). EKG was performed by a tech and shown to the ED physician. --19:08 09/27/20 [facility] TechFlorian ER Tech1 19:00 09/27/20. BP: 111/70. MAP: 83. HR: 82. RR: 17. O2 saturation: 100%. --19:45 09/27/20 [facility] Florian Del Rosario ER Tech1 19:30 09/27/20. BP: 112/68. MAP: 82. HR: 72. RR: 15. O2 saturation: 100%. --19:46 09/27/20 [facility] TechFlorian ER Tech1 18:30 09/27/2020 Site #1 started via IV in the left antecubital space with an 20g angiocath, with aseptic technique and good blood return; one attempt. Blood drawn: rainbow set. Labeled in the presence of the patient and sent to the lab. Saline lock flushed with 10 mL saline. --22:12 09/27/20 James Youngblood R.N. late entry - 18:35 09/27/20. Patient transported to radiology by wheelchair with hvac controls technician. --18:40 09/27/20 KimberlyGertrude watkinselyn 20:00 09/27/20. Reassurance given. Reassessment acuity: LEVEL 3. The patient reports no complaints and she is calm and resting quietly. Overall patient status is improved- she states feels better. GENERAL / NEURO / PSYCH: Alert. Oriented X 4. HEENT: Pupils equal, round and reactive to light. RESPIRATORY: No respiratory distress. SKIN: Skin is warm and dry. Two patient identifiers checked. Call light placed in reach. Side rails up x 2. Bed placed in lowest position. Brakes of bed on. --20:55 09/27/20 James Youngblood R.N. 4 Clinical Report - Nurses [facility] Emergency Department [address] [place] [address] Phone #: ext- [phone] 09/27/2020 17:38 Patient: CHANTALE SOLOMON Sex: F : 1965 Age: 55y 20:55 09/27/20. Reassurance given. Reassessment acuity: LEVEL 3. The patient reports no complaints and she is calm and resting quietly. Overall patient status is improved- she states feels better. ( jair in to see patient.). GENERAL / NEURO / PSYCH: Alert. Oriented X 4. RESPIRATORY: No respiratory distress. SKIN: Skin color within normal limits. Skin is warm and dry. Two patient identifiers checked. Call light placed in reach. Side rails up x 2. Bed placed in lowest position. Brakes of bed on. --20:55 09/27/20 James Youngblood R.N. 20:00 09/27/20. BP: 103/60. MAP: 74. HR: 72. RR: 15. O2 saturation: 100%. Pain level now: 0. --21:48 09/27/20 James Youngblood R.N. 20:30 09/27/20. BP: 105/55. MAP: 71. HR: 75. RR: 17. O2 saturation: 100% on room air. Pain level now: 0. --21:49 09/27/20 James Youngblood R.N. 21:00 09/27/20. BP: 98/42. MAP: 60. HR: 81. RR: 20. O2 saturation: 100% on room air. Pain level now: 0. --21:50 09/27/20 James Youngblood R.N. 21:30 09/27/20. Reassurance given. Reassessment acuity: LEVEL 3. The patient reports no complaints, she is calm and resting quietly and she has had no adverse reaction. GENERAL / NEURO / PSYCH: Alert. Oriented X 4. RESPIRATORY: No respiratory distress. SKIN: Skin color within normal limits. Skin is warm and dry. Two patient identifiers checked. Call light placed in reach. Side rails up x 1. Bed placed in lowest position. Brakes of bed on. --21:51 09/27/20 James Youngblood R.N. 21:30 09/27/20. BP: 118/70. MAP: 86. HR: 75. RR: 13. O2 saturation: 100% on room air. Pain level now: 0. --21:51 09/27/20 James Youngblood R.N. Cardiac rhythm: normal sinus rhythm; no ectopy noted (atrial rate75). --21:51 09/27/20 James Youngblood R.N. 22:00 09/27/20. ( carotid ultrasound in progress). --22:15 09/27/20 James Youngblood R.N.DISPOSITION / DISCHARGE 22:12 09/27/20. Admitted to the Acute Inpatient Unit, Monitored. Report was given to a nurse via a phone call and visit overview. Report included information regarding patient's treatment and allergies, current and abnormal vital signs and abnormal or pending labs. Report included treatment information regarding medications given or pending and home medications. All questions were answered. Report was acknowledged and care was transferred. (silvio). Bed obtained and ready (101). ( relayed to Silvio RN that CT r/o intracranial bleed was negative and will send her copy of report). --22:14 09/27/20 James Youngblood R.N. 5 Clinical Report - Nurses [facility] Emergency Department [address] [place] [address] Phone #: ext- [phone] 09/27/2020 17:38 Patient: CHANTALE SOLOMON Sex: F : 1965 Age: 55y 23:02 09/27/20. BP: 123/64. MAP: 83. HR: 73. RR: 14. O2 saturation: 100% on room air. Temp: 98.3 F. Pain level now: 0/10. --23:04 09/27/20 Jacquelyn Chanel R.N. Departure time: late entry - 22:55 09/27/2020. Admitted to the Acute Inpatient Unit, Monitored. Transported via stretcher by nurse with monitor, IV and O2. Report was given to a nurse. Care was transferred. (MARK Silveira). --23:04 09/27/20 Jacquelyn Chanel R.N. 23:04 09/27/2020 Site #[address] upon admission; patent, no pain and no signs of infection or infiltration. Good blood return present. Flushed with 10 mL saline; flushes easily. --23:04 09/27/20 Jacquelyn Chanel R.N.Locked/Released at 09/27/2020 23:04 by Jacquelyn Chanel R.N. Name Value Range Interpretation Code Description Data Maura rce(s) Supporting Document(s) ID Date Data Source [id number] 09/27/2020 05:50:00 PM EST [facility] 1 Clinical Report - Physicians/Mid Levels [facility] Emergency Department [address] [place] [address] Phone #: ext- [phone] 09/27/2020 17:38 Patient: CHANTALE SOLOMON Sex: F : 1965 Age: 55y Time Seen: 18:10 09/27/2020. Arrived- By private vehicle. Historian- patient. Disposition decision: 20:51 09/27/2020.HISTORY OF PRESENT ILLNESS Chief Complaint: blurry vision left eye. This started just prior to arrival, patient was last known well (17:00 09/27/2020) and is now gone (resolved upon arrival in the emergency department) (30 minutes after about). No weakness, numbness, tingling or impaired speech or swallowing. No recent fall. She has had visual disturbance with blurred vision and double vision of the left eye (left upper quadrant blurry for 30 minutes and resolved.similar history yesterday for 5 minutesd and last month one episode. has not seen anybody for this.). No difficulty walking. At its maximum deficit described as mild. When seen in the E.D., it was gone. No dizziness, altered mental status or seizure. Usually is alert and oriented X3 and has normal mobility. (on arrival left upper quadrant and blurry vision resolved.Currently NIHSS is 0 on arrival. similar episiode yesterday. h/o metastatic lung cancer with bony mets to spine and hiips. also has worsening renal failure, hence due to hypotension chemo was not given today, patient on xarelto. h/o PE and AF). Similar symptoms previously. Patient has had similar symptoms twice. ( once last month and once yesterday). Recent medical care: The patient was seen recently at another facility in the office and a clinic (today for chemo which was not given.).REVIEW OF SYSTEMSNo fever, headache, head injury, chest pain or difficulty breathing. No cough, sore throat, abdominal pain,nausea or diarrhea. No black stools, difficulty with urination, skin rash, enlarged lymph nodes or joint pain.No bloody stools or back pain. All other systems reviewed and are negative.PAST HISTORYSee nurses notes. Atrial fibrillation. Problems: Cancer [Active]. Spinal Fracture. Intervertebral Disc Disease. Pulmonary Embolism. Metabolic disease. Chronic Back Pain. DVT - Deep Venous Thrombosis. 2 Clinical Report - Physicians/Mid [facility] Emergency Department [address] [place] [address] Phone #: ext- [phone] 09/27/2020 17:38 Patient: CHANTALE SOLOMON Sex: F : 1965 Age: 55y Heart Disease. Atrial Fibrillation. Lung Cancer. Additional Surgeries: Appendectomy. Back Surgery. Dilatation Curettage. Foot surgery. Heel spur. Right heel spur. Septoplasty. Septoplasty. Tonsillectomy. Tubal Ligation. Medications: Btstolic. dilTIAZem HCl Oral. Pantoprazole Sodium Oral. Pharmacy [facility]. Spiriva HandiHaler Inhalation. Symbicort Inhalation. Tylenol Oral. Xarelto Oral. Allergies: Penicillins. Seafood.SOCIAL HISTORYFormer smoker. Alcohol use; consumes one glass of wine. No drug use. No recent travel. [place] She lives with spouse.ADDITIONAL NOTESThe nursing notes have been reviewed with agreement regarding the chief complaint, HPI, ROS, PMH andpatient medications and allergies.PHYSICAL EXAMVital Signs: 09/27/2020 18:03 BP: 103/64. MAP: 77. HR: 71. RR: 18. O2 saturation: 100%. Temp: 97.8 F.Pain level now: 4/10. Have been reviewed as normal.Appearance: Alert. No acute distress. No apparent distress. Does not appear to be anxious. Odor ofalcohol is not present.Head: Head atraumatic. No ecchymosis.Eyes: Pupils equal, round and reactive to light and light. Accommodation normal. No visual field deficit. 3 Clinical Report - Physicians/Mid Levels [facility] Emergency Department [address] [place] [address] Phone #: ext- [phone] 09/27/2020 17:38 Patient: CHANTALE SOLOMON Sex: F : 1965 Age: 55y Visual patterson normal. Left visual field deficit temporally and superiorly (? resolved . per [id number] left upper quadrant blurriness , now ewresolved). No double vision or vision. No dysconjugate gaze. Anterior chambers clear. Anterior chambers of normal depth. No pupillary exam. Rt Eye: Pupil 3mm. Lt Eye: Pupil 3mm. ENT: Normal ENT inspection. Airway intact. Pharynx normal. No trouble handling secretions, pharyngeal erythema or tonsillar exudate. Neck: Normal inspection. Neck supple. No meningeal signs, carotid bruit or lymphadenopathy. CVS: Normal heart rate. Heart sounds normal. Pulses normal. Rate normal. Rhythm normal. Respiratory: No respiratory distress. Painless inspiration. Breath sounds normal. Abdomen: Soft and nontender. No organomegaly. Back: Normal inspection. No CVA tenderness. Skin: Skin warm. Normal skin color. No rash. Extremities: Extremities exhibit normal ROM. No lower extremity edema. Neuro: Alert. Oriented X 3. Altered mental status. (NIHSS is 0 now). Not disoriented. Alertness is not decreased. Verbal response is not abnormal. Response to pain is not abnormal. No aphasia. No expressive aphasia or receptive aphasia. Mood/affect normal. Speech normal. No dysphasia or dysarthria. Cranial nerves normal (as tested). No cranial nerve deficit or facial weakness. No cerebellar findings. Finger-nose test abnormal (normal. no disdiakokiness and finger nose test is normal. heel to camejo also Normal.). Normal gait. No motor deficit. No weakness. No sensory deficit. No sensory deficit. No pronator drift. (NIHSS is 0 now).LABS, X-RAYS, AND EKGEKG: No acute process. No acute ischemia. Rate: 76. Non-specific ST segment / T waveabnormalities. The study has been interpreted contemporaneously. The study has not been interpretedcontemporaneously by me. The EKG appears to be a good tracing. I agree with and confirm thecomputer reading of the EKG.CT Head: No acute disease.Laboratory Tests: Laboratory tests have been ordered, with results reviewed and considered in themedical decision making process. CBC w Diff: (SARAH: 09/27/2020 18:55) ( MsgRcvd 09/27/2020 19:22) Final results Test Result Flag Units (Reference) CBC W/AUTOMATED DIFF COMPLETE BLOOD COUNT WBC 7.0 10/uL (4.2 - 11.0) RBC 2.56 L 10/uL (4.20 - 5.40) HEMOGLOBIN 9.5 L g/dL (12.0 - 16.0) HEMATOCRIT 29.8 L % (37.0 - 47.0) MCV 116.4 H fL (81.0 - 101) MCH 37.1 H pg (27.0 - 34.0) MCHC 31.9 g/dL (31.0 - 36.0) RDW 17.5 H % (11.5 - 14.5) PLATELETS 295 10/uL (150 - 450) MPV 9.0 fL (7.4 - 10.4) NEUT 48.3 % (37.0 - 80.0) LYMPH 24.0 L % (25.0 - 40.0) MONO 22.9 H % (3.0 - 8.0) EOS 3.0 % (0.0 - 7.0) 4 Clinical Report - Physicians/Mid Levels [facility] Emergency Department [address] [place] [address] Phone #: ext- [phone] 09/27/2020 17:38 Patient: CHANTALE SOLOMON Sex: F : 1965 Age: 55y BASO 0.9 % (0.0 - 2.5) %IG 0.9 H % (0.0 - 0.0) %NRBC 0.0 % (0.0 - 0.0) #NEUT 3.38 10/uL (2.00 - 6.90) #LYMPH 1.68 10/uL (0.60 - 3.40) #MONO 1.60 H 10/uL (0.00 - 0.90) #EOS 0.21 10/uL (0.00 - 0.70) #BASO 0.06 10/uL (0.00 - 0.20) #IG 0.06 10/uL (0.00 - 0.10) #NRBC 0.00 10/uL (0.00 - 0.00) MANUAL DIFF SEE BELOW SEGS 61 % (37 - 80) %LYMPH 24 L % (25 - 40) %MONO 15 H % (3 - 8) RBC MORPH NOT INDICATEDCMP: (SARAH: 09/27/2020 18:55) ( MsgRcvd 09/27/2020 19:32) Final results Test Result Flag Units (Reference) COMPREHENSIVE METABOLIC PANEL COMPREHENSIVE METABOLIC PANEL SODIUM 136 mEq/L (134 - 153) POTASSIUM 4.2 mEq/L (3.6 - 5.0) CHLORIDE 95 L mEq/L (98 - 107) CO2 32 H MEQ/L (22 - 30) GLUCOSE 90 MG/DL (65 - 110) BUN 13 MG/DL (7 - 21) CREATININE 1.4 MG/DL (0.7 - 1.5) BUN/CREAT 9 (8 - 27) TO WILLY PROTEIN 7.2 G/DL (6.3 - 8.2) ALBUMIN 3.8 L G/DL (3.9 - 5.0) GLOBULIN 3.4 H GM/DL (2.4 - 3.2) A/G RATIO 1.1 (0.8 - 2.0) CALCIUM 9.4 MG/DL (8.4 - 10.2) TOTAL BILI <0.7 MG/DL (0.2 - 1.3) ALKALINE PHOS 114 U/L (38 - 126) SGOT/AST 28 U/L (5 - 40) SGPT/ALT 23 U/L (7 - 56) ANION GAP 9.0 mmol/L (8.0 - 16.0) AGE 55 yrs NON-AA GFR 41 mL/min AFR AMER GFR 50 mL/min Male GFR Interprentation 20-49 yrs >60 mL/min Ledosi38-08 yrs >56 mL/min Normal 60-69 yrs >49 mL/min Normal 70-79yrs>42 mL/min Normal 80 and above >35 mL/min Normal Female GFRInterpretation 20-39 yrs >60 mL/min Normal 40-49 yrs >58 mL/minNormal 50-59 yrs >51 mL/min Normal 60-69 yrs >45 mL/min Qafwgc94-55 yrs >39 mL/min Normal 80 and above >32 mL/min NormalMagnesium: (SARAH: 09/27/2020 18:55) ( [facility] [place]/27[place] 19:32) Final results Test Result Flag Units (Reference) MAGNESIUM 1.2 L MG/DL (1.7 - 2.2)PT/INR: (SARAH: 09/27/2020 18:55) ( NvgRcvd 09/27/2020 19:10) Final results Test Result Flag Units (Reference) PROTIME 19.8 H SECONDS (11.0 - 15.5) INR 1.60 H (0.93 - 1.23) \\BLDo\\INR INTERPRETATION\\BLDx\\ Therapeutic range for Coumadin and 5 Clinical Report - Physicians/Mid Levels [facility] Emergency Department [address] [place] [address] Phone #: ext- [phone] 09/27/2020 17:38 [id number] Sex: F : 1965 Age: 55y related oral anticoagulants. -International Normalized Ratio (INR): 2.0 - 3.0 for Venous Thrombosis, Pulmonary Embolus, Tissue heart valves, Acute IN, Atrial Fibrillation, Valvular heart disease and recurrent Systemic Embolism. -International Normalized Ratio (INR): 2.5 - 3.5 for Mechanical Prosthetic valve. Troponin-T: (SARAH: 09/27/2020 18:55) ( MsgRcvd 09/27/2020 19:32) Final results Test Result Flag Units (Reference) TROPONIN T <0.01 NG/ML (0.00 - 0.10) TROPONIN T0.1 ng/ml Recommended as the clinical threshold value forTroponin T. Chest Portable 1 View: (SARAH: 09/27/2020 18:31) ( MsgRcvd 09/27/2020 19:23) In Progress CHEST PORTABLE Reason(s): TIA TRANSPORTATION: WC IV? O2? Oxygen?(No) Room: ED CT HEAD(STROKE PROTOCOL) W/O CONTRAST: (SARAH: 09/27/2020 18:31) ( MsgRcvd 09/27/2020 19:23) In Progress CT HEAD(STROKE PROTOCOL) W/O CONTRAST Reason(s): blurry vision on and off, on xarelto, h/o malignancy TRANSPORTATION: WC IV? IV?(Yes) O2? Oxygen?(No) Ro.PROGRESS AND PROCEDURESCourse of Care: 18:30 Sep 27 2020. Patient is stable. The patient's symptoms are now gone. Physicalexam findings are improved. 09/27/2020 18:03 BP: 103/64. MAP: 77. HR: 71. RR: 18. O2 saturation: 100%. Temp: 97.8 F. Pain level now: 4/10. Vital Signs: have been reviewed as normal. discussed with john mota. currently no diplopia, no loss of visual patterson.NIHSS 0 now. h/o AF on xarelto. ? TIA , resolved.rule out CVA, rule out IC vs bleed, rule out IC mass, mets.explained stroke alert done. not a candidate for TOPA, no symptoms now, and also on xarelto .explained to patient, needs further eval. stat CT done. 20:49 09/27/20. 20:30. Evaluation after multiple exams. discussed with patient and reviewed. TIA like symptoms, needs carotid studies , echo etc. low mag also. call and d/w jair covering /brandon and admitted for further care, patient agreed as well. Discussed case with on-call health care provider, (20:35 Sep 27 2020). Reviewed test results and need for additional work-up. Agreed upon treatment plan, need for patient follow-up and decision to admit. Health care provider will see patient in ED. Patient/family counseled. Old medical records ordered. 6 Clinical Report - Physicians/Mid Levels [facility] Emergency Department [address] [place] [address] Phone #: [phone] 09/27/2020 17:38 Patient: CHANTALE SOLOMON Sex: F : 1965 Age: 55y Disposition: Admitted. 20:40 Sep 27 2020.CLINICAL IMPRESSION Single acute transient ischemic attack consistent with the amaurosis fugax syndrome. on xarelto, rule out ic bleed, h/o metatstic lung carcinoma, on chemotherapy, anemia.(Electronically signed by Bel Carlisle M.D. 09/27/2020 23:31) Name Value Range Interpretation Code Description Data Maura rce(s) Supporting Document(s) ID Date Data Source [id number] 09/27/2020 05:50:00 PM EST [facility] Addenda for CHANTALE SOLOMON VisitID: [id number] Date: 21:01Medication reconciliation request faxed to [employer].(Electronically signed by Benjamín Shore - 09/27/2020 21:01) Name Value Range Interpretation Code Description Data Maura rce(s) Supporting Document(s) ID Date Data Source [id number] 09/27/2020 07:32:00 PM [facility] Name Value Range Interpretation Code Description Data Maura rce(s) Supporting Document(s) TROPONIN T <0.01 NG/ML 0.00 - 0.10 [facility] ospital TROPONIN T0.1 ng/ml Recommended as the c linical threshold value forTroponin T. ID Date Data Source [id number] 09/27/2020 07:32:00 PM [facility] Name Value Range Interpretation Code Description Data Maura rce(s) Supporting Document(s) Magnesium [Mass/volume] in Serum or Plasma 1.2 MG/DL 1.7 - 2.2 L [facility] ID Date Data Source [id number] 09/27/2020 07:31:00 PM [facility] Name Value Range Interpretation Code Description Data Maura rce(s) Supporting Document(s) COMPREHENSIVE METABOLIC PANEL [facility] COMPREHENSIVE METABOLIC PANEL Sodium [Moles/volume] in Serum or Plasma 136 mEq/L 134 - 153 [facility] Potassium [Moles/volume] in Serum or Plasma 4.2 mEq/L 3.6 - 5.0 [facility] Chloride [Moles/volume] in Serum or Plasma 95 mEq/L 98 - 107 L [facility] Carbon dioxide, total [Moles/volume] in Serum or Plasma 32 MEQ/L 22 - 30 H [facility] Glucose [Mass/volume] in Serum or Plasma 90 MG/DL 65 - 110 [facility] BUN 13 MG/DL 7 - [facility] Creat[facility] [Mass/volume] in Serum or Plasma 1.4 MG/DL 0.7 - 1.5 [facility] BUN/CREAT 9 8 - 27 [facility] al Protein [Mass/volume] in Serum or Plasma 7.2 G/DL 6.3 - 8.2 [facility] Albumin [Mass/volume] in Serum or Plasma 3.8 G/DL 3.9 - 5.0 L [facility] Globulin [Mass/volume] in Serum by calculation 3.4 GM/DL 2.4 - 3.2 H [facility] A/G RATIO 1.1 0.8 - 2.0 [facility] al Calcium [Mass/volume] in Serum or Plasma 9.4 MG/DL 8.4 - 10.2 [facility] Bilirubin.total [Mass/volume] in Serum or Plasma <0.7 MG/DL 0.2 - 1.3 [facility] Alkaline phosphatase [Enzymatic activity/volume] in Serum or Plasma 114 U/L 38 - 126 [facility] Aspartate aminotransferase [Enzymatic activity/volume] in Serum or Plasma 28 U/L 5 - 40 [facility] Alanine aminotransferase [Enzymatic activity/volume] in Seru m or Plasma 23 U/L 7 - 56 [facility] Anion gap 3 in Serum or Plasma 9.0 mmol/L 8.0 - 16.0 [facility] AGE 55 yrs [facility] al NON-AA GFR 41 mL/min [facility] A[facility] AMER GFR 50 mL/min [facility] Male GFR In terprentation 20-49 yrs >60 mL/min Normal 50-59 yrs >56 mL/min Normal 60-69 yrs >49 mL/min Normal 70-79yrs >42 mL/min Normal 80 and above >35 mL/min Normal Female GFR Interpretation 20-39 yrs >60 mL/min Normal 40-49 yrs >58 mL/min Normal 50-59 yrs >51 mL/min Normal 60-69 yrs >45 mL/min Normal 70-79 yrs >39 mL/min Normal 80 and above >32 mL/min Normal ID Date Data Source [id number] 09/27/2020 07:22:00 PM EST [facility] Name Value Range Interpretation Code Description Data Maura rce(s) Supporting Document(s) CBC W/AUTOMATED DIFF [facility] COMPLETE BLOOD COUNT Leukocytes [#/volume] in Blood by Automated count 7.0 10^3/uL 4.2 - 1 1.0 [facility] Erythrocytes [#/volume] in Blood by Automated count 2.56 10^6/uL 4. 20 - 5.40 L [facility] Hemoglobin [Mass/volume] in Blood 9.5 g/dL 12.0 - 16.0 L [facility] Hematocrit [Volume Fraction] of Blood by Automated count 29.8 % 3 7.0 - 47.0 L [facility] Erythrocyte mean corpuscular volume [Entitic volume] b y Automated count 116.4 fL 81.0 - 101 H [facility] Erythrocyte mean corpuscular hemoglobin [Entitic mass] by Automated count 37.1 pg 27.0 - 34.0 H [facility] Erythrocyte mean corpuscular hemoglobin concentration [Mass/volume] by Automated count 31.9 g/dL 31.0 - 36.0 [facility] Erythrocyte distribution width [Ratio] by Automated count 17.5 % 11.5 - 14.5 H [facility] Platelets [#/volume] in Blood by Automated count 295 10^3/uL 150 - 45 0 [facility] Platelet mean volume [Entitic volume] in Blood by Automated count 9.0 fL 7.4 - 10.4 [facility] Neutrophils/100 leukocytes in Blood by Automated count 48.3 % 37. 0 - 80.0 [facility] Lymphocytes/100 leukocytes in Blood by Manual count 24.0 % 25.0 - 40.0 L [facility] Monocytes/100 leukocytes in Blood by Automated count 22.9 % 3.0 - 8.0 H [facility] Eosinophils/100 leukocytes in Blood by Automated count 3.0 % 0.0 - 7.0 [facility] Basophils/100 leukocytes in Blood by Automated count 0.9 % 0.0 - 2.5 [facility] %IG 0.9 % 0.0 - 0.0 [facility] %NRBC 0.0 % 0.0 - 0.0 [facility] al Neutrophils [#/volume] in Blood by Automated count 3.38 10^3/uL 2.00 - 6.90 [facility] Lymphocytes [#/volume] in Blood by Automated count 1.68 10^3/uL 0.60 - 3.40 [facility] Monocytes [#/volume] in Blood by Automated count 1.60 10^3/uL 0.00 - 0.90 H [facility] Eosinophils [#/volume] in Blood by Automated count 0.21 10^3/uL 0.00 - 0.70 [facility] Basophils [#/volume] in Blood by Automated count 0.06 10^3/uL 0.00 - 0.20 [facility] #IG 0.06 10^3/uL 0.00 - 0.10 [facility] osp[facility] #NRBC 0.00 10^3/uL 0.00 - 0.00 [facility] ospital MANUAL DIFF SEE BELOW [facility] Segmented neutrophils/100 leukocytes in Blood by Manual count 61 % 37 - 80 [facility] %LYMPH 24 % 25 - 40 [facility] %MONO 15 % 3 - 8 H [facility] al RBC MORPH NOT INDICATED [facility] spital ID Date Data Source [id number] 09/27/2020 07:10:00 PM EST [facility] Name Value Range Interpretation Code Description Data Maura rce(s) Supporting Document(s) Prothrombin time (PT) 19.8 SECONDS 11.0 - 15.5 H [facility] INR in Platelet poor plasma by Coagulation assay 1.60 0.93 - 1. 23 H [facility] \\BLDo\\INR INTERPRETATION\\BLDx\\ Therapeutic range for Coumadin and related oral anticoagulants. - International Normalized Ratio (INR): 2.0 - 3.0 for Venous Thrombosis, Pulmonary Embolus, Tissue heart valves, Acute IN, Atrial Fibrillation, Valvular heart disease and recurrent Systemic Embolism. -International Normalized Ratio (INR): 2.5 - 3.5 for Mechanical Prosthetic valve. ID Date Data Source [id number] 09/05/2020 03:26:00 PM [facility] Name Value Range Interpretation Code Description Data Maura rce(s) Supporting Document(s) COMPREHENSIVE METABOLIC PANEL [facility] COMPREHENSIVE METABOLIC PANEL Sodium [Moles/volume] in Serum or Plasma 138 mEq/L 134 - 153 [facility] Potassium [Moles/volume] in Serum or Plasma 5.0 mEq/L 3.6 - 5.0 [facility] Chloride [Moles/volume] in Serum or Plasma 100 mEq/L 98 - 107 [facility] Carbon dioxide, total [Moles/volume] in Serum or Plasma 27 MEQ/L 22 - 30 [facility] Glucose [Mass/volume] in Serum or Plasma 104 MG/DL 65 - 110 [facility] BUN 14 MG/DL 7 - 21 [facility] Creatinine [Mass/volume] in Serum or Plasma 1.3 MG/DL 0.7 - 1.5 [facility] BUN/CREAT 11 8 - 27 [facility] al Protein [Mass/volume] in Serum or Plasma 6.7 G/DL 6.3 - 8.2 [facility] Albumin [Mass/volume] in Serum or Plasma 3.7 G/DL 3.9 - 5.0 L [facility] Globulin [Mass/volume] in Serum by calculation 3.0 GM/DL 2.4 - 3.2 [facility] A/G RATIO 1.2 0.8 - 2.0 [facility] Calcium [Mass/volume] in Serum or Plasma 9.4 MG/DL 8.4 - 10.2 [facility] Bilirubin.total [Mass/volume] in Serum or Plasma <0.7 MG/DL 0.2 - 1.3 [facility] Alkaline phosphatase [Enzymatic activity/volume] in Serum or Plasma 106 U/L 38 - 126 [facility] Aspartate aminotransferase [Enzymatic activity/volume] in Serum or Plasma 25 U/L 5 - 40 [facility] Alanine aminotransferase [Enzymatic activity/volume] in Seru m or Plasma 14 U/L 7 - 56 [facility] Anion gap 3 in Serum or Plasma 11.0 mmol/L 8.0 - 16.0 [facility] AGE 55 yrs [facility] al NON-AA GFR 45 mL/min [facility] AFR AMER GFR 55 mL/min [facility] Male GFR In terprentation 20-49 yrs >60 mL/min Normal 50-59 yrs >56 mL/min Normal 60-69 yrs >49 mL/min Normal 70-79yrs >42 mL/min Normal 80 and above >35 mL/min Normal Female GFR Interpretation 20-39 yrs >60 mL/min Normal 40-49 yrs >58 mL/min Normal 50-59 yrs >51 mL/min Normal 60-69 yrs >45 mL/min Normal 70-79 yrs >39 mL/min Normal 80 and above >32 mL/min Normal ID Date Data Source [id number] 08/29/2020 10:44:00 AM EDT [facility] Name Value Range Interpretation Code Description Data Maura rce(s) Supporting Document(s) COMPREHENSIVE METABOLIC PANEL [facility] COMPREHENSIVE METABOLIC PANEL Sodium [Moles/volume] in Serum or Plasma 137 mEq/L 134 - 153 [facility] Potassium [Moles/volume] in Serum or Plasma 4.3 mEq/L 3.6 - 5.0 [facility] Chloride [Moles/volume] in Serum or Plasma 97 mEq/L 98 - 107 L [facility] Carbon dioxide, total [Moles/volume] in Serum or Plasma 31 MEQ/L 22 - 30 H [facility] Glucose [Mass/volume] in Serum or Plasma 122 MG/DL 65 - 110 H [facility] BUN 16 MG/DL 7 - 21 [facility] al Creatinine [Mass/volume] in Serum or Plasma 1.5 MG/DL 0.7 - 1.5 [facility] BUN/CREAT 11 8 - 27 [facility] Protein [Mass/volume] in Serum or Plasma 6.7 G/DL 6.3 - 8.2 [facility] Albumin [Mass/volume] in Serum or Plasma 3.6 G/DL 3.9 - 5.0 L [facility] Globulin [Mass/volume] in Serum by calculation 3.1 GM/DL 2.4 - 3.2 [facility] A/G RATIO 1.2 0.8 - 2.0 [facility] Calcium [Mass/volume] in Serum or Plasma 8.5 MG/DL 8.4 - 10.2 [facility] Bilirubin.total [Mass/volume] in Serum or Plasma <0.7 MG/DL 0.2 - 1.3 [facility] Alkaline phosphatase [Enzymatic activity/volume] in Serum or Plasma 108 U/L 38 - 126 [facility] Aspartate aminotransferase [Enzymatic activity/volume] in Serum or Plasma 29 U/L 5 - 40 [facility] Alanine aminotransferase [Enzymatic activity/volume] in Seru m or Plasma 14 U/L 7 - 56 [facility] Anion gap 3 in Serum or Plasma 9.0 mmol/L 8.0 - 16.0 [facility]GE 55 [facility] 38 mL/min [facility]illy AFR AMER GFR 46 mL/min [facility] Male GFR In terprentation 20-49 yrs >60 mL/min Normal 50-59 yrs >56 mL/min Normal 60-69 yrs >49 mL/min Normal 70-79yrs >42 mL/min Normal 80 and above >35 mL/min Normal Female GFR Interpretation 20-39 yrs >60 mL/min Normal 40-49 yrs >58 mL/min Normal 50-59 yrs >51 mL/min Normal 60-69 yrs >45 mL/min Normal 70-79 yrs >39 mL/min Normal 80 and above >32 mL/min Normal ID Date Data Source [id number] 08/29/2020 10:37:00 AM EDT [facility] Name Value Range Interpretation Code Description Data Maura rce(s) Supporting Document(s) CBC W/AUTOMATED DIFF [facility] COMPLETE BLOOD COUNT Leukocytes [#/volume] in Blood by Automated count 8.8 10^3/uL 4.2 - 1 1.0 [facility] Erythrocytes [#/volume] in Blood by Automated count 2.97 10^6/uL 4. 20 - 5.40 L [facility] Hemoglobin [Mass/volume] in Blood 11.0 g/dL 12.0 - 16.0 L [facility] Hematocrit [Volume Fraction] of Blood by Automated count 33.4 % 3 7.0 - 47.0 L [facility] Erythrocyte mean corpuscular volume [Entitic volume] b y Automated count 112.5 fL 81.0 - 101 H [facility] Erythrocyte mean corpuscular hemoglobin [Entitic mass] by Automated count 37.0 pg 27.0 - 34.0 H [facility] Erythrocyte mean corpuscular hemoglobin concentration [Mass/volume] by Automated count 32.9 g/dL 31.0 - 36.0 [facility] Erythrocyte distribution width [Ratio] by Automated count 14.5 % 11.5 - 14.5 [facility] Platelets [#/volume] in Blood by Automated count 347 10^3/uL 150 - 45 0 [facility] Platelet mean volume [Entitic volume] in Blood by Automated count 9.1 fL 7.4 - 10.4 [facility] Neutrophils/100 leukocytes in Blood by Automated count 65.2 % 37. 0 - 80.0 [facility] Lymphocytes/100 leukocytes in Blood by Manual count 11.5 % 25.0 - 40.0 L [facility] Monocytes/100 leukocytes in Blood by Automated count 18.4 % 3.0 - 8.0 H [facility] Eosinophils/100 leukocytes in Blood by Automated count 3.2 % 0.0 - 7.0 [facility] Basophils/100 leukocytes in Blood by Automated count 1.0 % 0.0 - 2.5 [facility] %IG 0.7 % 0.0 - 0.[address] [facility] al %NRBC 0.0 % 0.0 - 0.0 [facility] al Neutrophils [#/volume] in Blood by Automated count 5.76 10^3/uL 2.00 - 6.90 [facility] Lymphocytes [#/volume] in Blood by Automated count 1.02 10^3/uL 0.60 - 3.40 [facility] Monocytes [#/volume] in Blood by Automated count 1.63 10^3/uL 0.00 - 0.90 H [facility] Eosinophils [#/volume] in Blood by Automated count 0.28 10^3/uL 0.00 - 0.70 [facility] Basophils [#/volume] in Blood by Automated count 0.09 10^3/uL 0.00 - 0.20 [facility] #IG 0.06 10^3/uL 0.00 - 0.10 [facility] #NRBC 0.00 10^3/uL 0.00 - 0.00 [facility] MANUAL DIFF SEE BELOW [facility] ital Segmented neutrophils/100 leukocytes in Blood by Manual count 74 % 37 - 80 [facility] BAND 1 % 0 - 5 [facility] al %LYMPH 12 % 25 - [address] [facility] al %MONO 12 % 3 - [address] [facility] %EOS 1 % 0 - 7 [facility] RBC MORPH MORPH IS NORMAL [facility] ID Date Data Source [id number] 08/07/2020 11:19:00 AM EDT [place] [id number] HISTORY AND PHYSICALNAME: JUANITO Daniels ROOM#: [id number] OF : 1965 MR#: [id number] PHYS: Osmel Alvarez MD, [facility] [id number] DATE: 08/05/20CHIEF COMPLAINT: This is a 55-year-old white female who presented with palpitations, dyspnea,wheezing, dizziness.HISTORY OF PRESENT ILLNESS:This patient has known history of COPD. She had been sitting and thought her heart was beating very fast.She felt dizzy, lightheadedness and had chest pressure, was dyspneic and was brought to the emergency room.The patient has known carcinoma of the left lung. She gets chemotherapy. She already had radiation. She hasknown history of COPD and was admitted twice this year for pneumonia.MED ICATIONS:1. Xarelto 20 mg daily for PE2. Bystolic 5 mg daily3. Protonix 40 mg daily4. Spiriva inhaler5. Symbicort inhaler6. TylenolALLERGIES:PENICILLIN and SEAFOOD.REVIEW OF SYSTEMS:The patient complains of tiredness, fatigue and dyspnea at rest, palpitations. She is dizzy. There is nohistory of any diplopia or headache. There are no chills or fever. No cough or hemoptysis. No boweldisturbance. No urinary problem. No ankle edema.PAST MEDICAL HISTORY:The patient was admitted here in February for pneumonia and also in January for pneumonia. She hascancer of the left lung. [facility]. She has known history ofappendectomy, back surgery with a chu in the dorsal spine, crushed T7 and T8, history of D&C,history of foot surgery, history of right heel spur, tonsillectomy, tubal ligation. Two years ago, she wasalso admitted for PE.PERSONAL HISTORY:She stopped smoking 2 years ago. Before that, she was smoking 1 pack.FAMILY HISTORY:Father and mother both had stroke and diabetes. Mother is alive and has COPD. [address] [place] [address] HISTORY AND PHYSICALNAME: JUANITO Daniels ROOM#: [id number] OF : 1965 MR#: [id number] PHYS: Osmel Alvarez MD, PC DATE: 08/05/20PHYSICAL EXAMINATION:GENERAL: Moderately-built.VITAL SIGNS: Blood pressure is 134/97. Heart rate was 160. Temperature 98. Respirations 18-24. [id number] is 100% on 2 liters of oxygen.HEENT: Head is normal. Pupils and fundus reveal grade 2 changes. Mouth normal. Tongue dry.NECK: Supple. No lymphadenopathy. Thyroid not enlarged. Neck veins are distended. No carotidbruits.CHEST: Symmetrical.HEART: Atrial fibrillation with rapid ventricular rate of 150-160 beats per minute.LUNGS: Vesicular breathing with prolonged expiration. Scattered rhonchi in the lungs.ABDOMEN: Soft and nontender. No visceromegaly.EXTREMITIES: Normal. Peripheral pulses are palpable.NEUROLOGICAL: Normal.IMPRESSION: 1. Paroxysmal atrial fibrillation with rapid ventricular rate 2. History of COPD 3. History of carcinoma of the left lung, getting chemotherapy status post radiation 4. History of PE 5. History of hypertension 6. History of anxietyPLAN:This patient presented with atrial fibrillation with rapid ventricular rate. Cardizem was given at 20 mgIV in the emergency room. We will put her on a Cardizem drip at 10 mg/hr IV and see the response.She is already well anti-coagulated with Xarelto 20 mg daily.ADDENDUM:The addendum is a correction to the medication list on page 1 from diltiazem to Bystolic.DD: Osmel Alvarez MD, PC 08/05/20 21:13DT: DMAutumn 08/06/20 00:51/SSR 08/07/20 11:18DS: Osmel Alvarez MD, PC 08/07/20 07:51 2 Name Value Range Interpretation Code Description Data Maura rce(s) Supporting Document(s) ID Date Data Source [id number] 08/07/2020 11:17:00 [place] [address] DISCHARGE SUMMARYNAME: JUANITO Daniels ROOM#: [id number] OF : 1965 MR#: [id number] PHYS: Osmel Alvarez MD, PC DATE: 08/05/20 DISCHARGED:HISTORY OF PRESENT ILLNESS:This is a 55-year-old white female presented with palpitations, dyspnea, wheezing, and dizziness. Thispatient has known COPD. Came with atrial fibrillation with rapid ventricular rate. She was givenCardizem 20 mg IV in the emergency room. Patient takes Xarelto 20 mg daily, Bystolic 5 mg daily.On exam, blood pressure was 134/97. Head was normal. Heart was atrial fibrillation with rapidventricular rate. Lungs had scattered rhonchi. Abdomen soft. 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 BNP was 1159,TSH 3.01, magnesium 1.7, cholesterol 154, LDL 68, BUN 11, creatinine 1.2. Patient's platelets werelow. On 08/06, BNP 1738. On 08/07, hemoglobin 9.1, white count 3.0, platelets were 49,000. Ironlevel was 50 on 08/06. CT of chest showed minimal cardiomegaly, consolidation and collapse of theleft upper lobe.COURSE DURING HOSPITALIZATION:Patient was given Cardizem 20 mg IV in the emergency room, amiodarone 150 mg IV bolus. She wasadmitted to the hospital, put on Cardizem 10 mg/hour IV. Procrit 20,000 units was given subcu. Magsulfate 2 gram IV over one hour was given. Patient was admitted inpatient. Patient responded well tooral Cardizem. She was monitored for 24 hours. There was no edema noted. She was in regular sinusrhythm. So, it was decided to discharge her on 08/07 to follow up in the office. Diet: Regular low saltdiet.DISCHARGE MEDICATIONS:1. Xarelto 10 mg daily.2. Cardizem-CD 180 mg daily.3. Albuterol inhaler.4. Bystolic 5 mg daily.5. Furosemide 20 mg once a week.6. Loratadine 10 mg daily.7. Magnesium daily.8. Protonix 40 mg daily.9. Potassium 10 mEq weekly.10. Spiriva inhaler daily.11. Symbicort 160/4.5 mcg bid.DISCHARGE PLAN: [address] [place] [address] DISCHARGE SUMMARYNAME: JUANITO Daniels ROOM#: [id number] OF : 1965 MR#: [id number] PHYS: Osmel Alvarez MD, PC DATE: 08/05/20 DISCHARGED:Follow up one week in the office for Holter and EKG.FINAL DIAGNOSES:1. PAROXYSMAL ATRIAL FIBRILLATION WITH RAPID VENTRICULAR RATE.2. HISTORY OF CHRONIC OBSTRUCTIVE PULMONARY DISEASE.3. HISTORY OF CARCINOMA LEFT LUNG STATUS POST CHEMOTHERAPY AND RADIATION.4. HISTORY OF PULMONARY EMBOLISM.5. HISTORY OF HYPERTENSION.6. HISTORY OF ANXIETY.7. 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.Note, patient told to consult with Oncology next week, she is going to see them and let them know herlipids and platelets are very low.DD: Osmel Alvarez MD, PC 08/07/20 09:35DT: SSR 08/07/20 11:17DS: Osmel Alvarez MD, PC 08/23/20 09:35 2 Name Value Range Interpretation Code Description Data Maura rce(s) Supporting Document(s) ID Date Data Source [id number] 08/15/2020 10:43:00 AM EDT [facility] (Osmel Alvarez MD) Name Value Range Interpretation Code Description Data Maura rce(s) Supporting Document(s) Fibrin D-dimer [Presence] in Platelet poor plasma 1.41 ug/mL 0.27-0.50 Above high normal [facility] (Osmel Alvarez MD) Natriuretic peptide.B prohormone N-Terminal [Mass/volu me] in Serum or Plasma 1005 pg/mL 0-125 Above high normal [facility] (Osmel Alvarez MD) Hemoglobin A1c/Hemoglobin.total in Blood 5.2 % 4.4-6.1 [facility] (Osmel Alvarez MD) {A1] {HB] ID Date Data Source [id number] 08/15/2020 10:43:00 AM EDT [facility] (Osmel Alvarez MD) Name Value Range Interpretation Code Description Data Maura rce(s) Supporting Document(s) Laboratory test finding (navigational concept) 137 meq/L 134-153 [facility] (Osmel Alvarez MD) Laboratory test finding (navigational concept) Laboratory test result [facility] (Osmel Alvarez MD) COMPREHENSIVE METABOLIC PANEL Laboratory test finding (navigational concept) 3.5 meq/L 3 .6-5.0 Below low normal [facility] (Osmel Alvarez MD) Laboratory test finding (navigational concept) 27 meq/L 22-30 [facility] (Osmel Alvarez MD) Laboratory test finding (navigational concept) 95 meq/L 98-107 Below low normal [facility] (Osmel Alvarez MD) Laboratory test finding (navigational concept) 1.3 mg/dL 0.7-1.5 [facility] (Osmel Alvarez MD) Laboratory test finding (navigational concept) 9 mg/dL 7-21 [facility] (Osmel Alvarez MD) Laboratory test finding (navigational concept) 105 mg/dL 65-110 [facility] (Osmel Alvarez MD) Laboratory test finding (navigational concept) 3.9 g/dL 3.9-5.0 [facility] (Osmel Alvarez MD) Laboratory test finding (navigational concept) 7.1 g/dL 6.3-8.2 [facility] (Osmel Alvarez MD) Laboratory test finding (navigational concept) 7 8-27 Below low normal [facility] (Osmel Alvarez MD) Laboratory test finding (navigational concept) 113 U/L 38-126 [facility] (Osmel Avlarez MD) Laboratory test finding (navigational concept) 1.2 0.8-2.0 [facility] (Osmel Alvarez MD) Laboratory test finding (navigational concept) 3.2 GM/DL 2.4-3.2 [facility] (Osmel Alvarez MD) Laboratory test finding (navigational concept) 15.0 mmol/L 8.0-16.0 [facility] (Osmel Alvarez MD) Laboratory test finding (navigational concept) 12 U/L 7-56 [facility] (Osmel Alvarez MD) Laboratory test finding (navigational concept) 24 U/L 5-40 [facility] (Osmel Alvarez MD) Laboratory test finding (navigational concept) 45 mL/min [facility] (Osmel Alvarez MD) Laboratory test finding (navigational concept) 55 yrs [facility] (Osmel Alvarez MD) Laboratory test finding (navigational concept) 55 mL/min [facility] (Osmel Alvarez MD) Male GFR Interprentation 20-49 yrs >60 mL/min Normal 50-59 yrs >56 mL/min Normal 60-69 yrs >49 mL/min Normal 70-79yrs >42 mL/min Normal 80 and above >35 mL/min Normal Female GFR Interpretation 20-39 yrs >60 mL/min Normal 40-49 yrs >58 mL/min Normal 50-59 yrs >51 mL/min Normal 60-69 yrs >45 mL/min Normal 70-79 yrs >39 mL/min Normal 80 and above >32 mL/min Normal ID Date Data Source [id number] 08/15/2020 10:43:00 AM EDT [facility] (Osmel Alvarez MD) Name Value Range Interpretation Code Description Data Maura rce(s) Supporting Document(s) Magnesium [Mass/volume] in Serum or Plasma 1.1 mg/dL 1.7-2.2 [place] w low normal [facility] (Osmel Alvarez MD) Iron [Mass/volume] in Serum or Plasma 28 ug/dL 42-135 Below low normal [facility] (Osmel Alvarez MD) ID Date Data Source [id number] 08/15/2020 10:43:00 AM EDT [facility] (Osmel Alvarez MD) Name Value Range Interpretation Code Description Data Maura rce(s) Supporting Document(s) Laboratory test finding (navigational concept) Laboratory test result [facility] (Osmel Alvarez MD) COMPLETE BLOOD COUNT Laboratory test finding (navigational concept) 2.91 10^6/uL 4 .20-5.40 Below low normal [facility] (Osmel Alvarez MD) Laboratory test finding (navigational concept) 9.7 10^3/uL 4.2-11.0 [facility] (Osmel Alvarez MD) Laboratory test finding (navigational concept) 32.5 % 3 7.0-47.0 Below low normal [facility] (Osmel Alvarez MD) Laboratory test finding (navigational concept) 10.8 g/dL 1 2.0-16.0 Below low normal [facility] (Osmel Alvarez MD) Laboratory test finding (navigational concept) 111.7 fL 8 1.0-101 Above high normal [facility] (Osmel Alvarez MD) Laboratory test finding (navigational concept) 33.2 g/dL 31.0-36.0 [facility] (Osmel Alvarez MD) Laboratory test finding (navigational concept) 15.1 % 1 1.5-14.5 Above high normal [facility] (Osmel Alvarez MD) Laboratory test finding (navigational concept) 37.1 pg 2 7.0-34.0 Above high normal [facility] (Osmel Alvarez MD) Laboratory test finding (navigational concept) 9.5 fL 7.4-10.4 [facility] (Osmel Alvarez MD) Laboratory test finding (navigational concept) 335 10^3/uL 150-450 [facility] (Osmel Alvarez MD) Laboratory test finding (navigational concept) 60.8 % 37.0-80.0 [facility] (Osmel Alvarez MD) Laboratory test finding (navigational concept) 27.0 % 3.0-8.0 Above high normal [facility] (Osmel Alvarez MD) Laboratory test finding (navigational concept) 7.4 % 25.0-40 .0 Below low normal [facility] (Osmel Alvarez MD) Laboratory test finding (navigational concept) 2.7 % 0.0-7.0 [facility] (Osmel Alvarez MD) Laboratory test finding (navigational concept) 1.0 % 0.0-2.5 [facility] (Osmel Alvarez MD) Laboratory test finding (navigational concept) 0.0 % 0.0-0.0 [facility] (Osmel Alvarez MD) Laboratory test finding (navigational concept) 1.1 % 0.0-0.0 Above high normal [facility] (Osmel Alvarez MD) Laboratory test finding (navigational concept) 5.87 10^3/uL 2.00-6.90 [facility] (Osmel Alvarez MD) Laboratory test finding (navigational concept) 0.72 10^3/uL 0.60-3.40 [facility] (Osmel Alvarez MD) Laboratory test finding (navigational concept) 2.61 10^3/uL 0 .00-0.90 Above high normal [facility] (Osmel Alvarez MD) Laboratory test finding (navigational concept) 0.10 10^3/uL 0.00-0.20 [facility] (Osmel Alvarez MD) Laboratory test finding (navigational concept) 0.26 10^3/uL 0.00-0.70 [facility] (Osmel Alvarez MD) Laboratory test finding (navigational concept) 0.11 10^3/uL 0 .00-0.10 Above high normal [facility] (Osmel Alvarez MD) Laboratory test finding (navigational concept) 0.00 10^3/uL 0.00-0.00 [facility] (Osmel Alvarez MD) Laboratory test finding (navigational concept) 67 % 37-80 [facility] (Osmel Alvarez MD) Laboratory test finding (navigational concept) Laboratory test result [facility] (Osmel Alvarez MD) Laboratory test finding (navigational concept) 0 % 0-5 [facility] (Osmel Alvarez MD) Laboratory test finding (navigational concept) 18 % 3-8 Above high normal [facility] (Osmel Alvarez MD) Laboratory test finding (navigational concept) 12 % 25-40 Below low normal [facility] (Osmel Alvarez MD) Laboratory test finding (navigational concept) 0 % 0-2 [facility] (Osmel Alvarez MD) Laboratory test finding (navigational concept) Laboratory test result [facility] (Osmel Alvarez MD) Laboratory test finding (navigational concept) 3 % 0-7 [facility] (Osmel Alvarez MD) ID Date Data Source [id number] 08/15/2020 11:37:00 AM EDT [facility] Name Value Range Interpretation Code Description Data Maura rce(s) Supporting Document(s) Hemoglobin A1c/Hemoglobin.total in Blood 5.2 % 4.4 - 6.1 [facility] {A1]{HB] ID Date Data Source [id number] 08/15/2020 11:37:00 AM EDT [facility] Name Value Range Interpretation Code Description Data Maura rce(s) Supporting Document(s) BNP 1005 PG[facility]ML 0 - [facility] Date Data Source [id number] 08/15/2020 11:08:00 AM EDT [facility] Name Value Range Interpretation Code Description Data Maura rce(s) Supporting Document(s) Fibrin D-dimer FEU [Mass/volume] in Platelet poor plasma 1.41 ug /mL 0.27 - 0.50 H [facility] ID Date Data Source [id number] 08/15/2020 11:37:00 AM EDT [facility] Name Value Range Interpretation Code Description Data Maura rce(s) Supporting Document(s) COMPREHENSIVE METABOLIC PANEL [facility] COMPREHENSIVE METABOLIC PANEL Sodium [Moles/volume] in Serum or Plasma 137 mEq/L 134 - 153 [facility] Potassium [Moles/volume] in Serum or Plasma 3.5 mEq/L 3.6 - 5.0 L [facility] Chloride [Moles/volume] in Serum or Plasma 95 mEq/L 98 - 107 L [facility] Carbon dioxide, total [Moles/volume] in Serum or Plasma 27 MEQ/L 22 - 30 [facility] Glucose [Mass/volume] in Serum or Plasma 105 MG/DL 65 - 110 [facility] BUN 9 MG/DL 7 - 21 [facility] Creatinine [Mass/volume] in Serum or Plasma 1.3 MG/DL 0.7 - 1.5 [facility] BUN/CREAT 7 8 - 27 L [facility] Protein [Mass/volume] in Serum or Plasma 7.1 G/DL 6.3 - 8.2 [facility] Albumin [Mass/volume] in Serum or Plasma 3.9 G/DL 3.9 - 5.0 [facility] Globulin [Mass/volume] in Serum by calculation 3.2 GM/DL 2.4 - 3.2 [facility] A/G RATIO 1.2 0.8 - 2.0 [facility] Alkaline phosphatase [Enzymatic activity/volume] in Serum or Plasma 113 U/L 38 - 126 [facility] Aspartate aminotransferase [Enzymatic activity/volume] in Serum or Plasma 24 U/L 5 - 40 [facility] Alanine aminotransferase [Enzymatic activity/volume] in Seru m or Plasma 12 U/L 7 - 56 [facility] Anion gap 3 in Serum or Plasma 15.0 mmol/L 8.0 - 16.0 [facility] AGE [address] [facility] NON-AA GFR 45 mL/min [facility] wilyl AFR AMER GFR 55 mL/min [facility] Male GFR In terprentation 20-49 yrs >60 mL/min Normal 50-59 yrs >56 mL/min Normal 60-69 yrs >49 mL/min Normal 70-79yrs >42 mL/min Normal 80 and above >35 mL/min Normal Female GFR Interpretation 20-39 yrs >60 mL/min Normal 40-49 yrs >58 mL/min Normal 50-59 yrs >51 mL/min Normal 60-69 yrs >45 mL/min Normal 70-79 yrs >39 mL/min Normal 80 and above >32 mL/min Normal ID Date Data Source [id number] 08/15/2020 11:37:00 AM EDT [facility] Name Value Range Interpretation Code Description Data Maura rce(s) Supporting Document(s) Iron [Mass/volume] in Serum or Plasma 28 UG/DL 42 - 135 L [facility] ID Date Data Source [id number] 08/15/2020 11:51:00 AM T [facility] Name Value Range Interpretation Code Description Data Maura rce(s) Supporting Document(s) Magnesium [Mass/volume] in Serum or Plasma 1.1 MG/DL 1.7 - 2.2 L [facility] ID Date Data Source [id number] 08/15/2020 11:40:00 AM [facility] Name Value Range Interpretation Code Description Data Maura rce(s) Supporting Document(s) CBC W/AUTOMATED DIFF [facility] COMPLETE BLOOD COUNT Leukocytes [#/volume] in Blood by Automated count 9.7 10^3/uL 4.2 - 1 1.0 [facility] Erythrocytes [#/volume] in Blood by Automated count 2.91 10^6/uL 4. 20 - 5.40 L [facility] Hemoglobin [Mass/volume] in Blood 10.8 g/dL 12.0 - 16.0 L [facility] Hematocrit [Volume Fraction] of Blood by Automated count 32.5 % 3 7.0 - 47.0 L [facility] Erythrocyte mean corpuscular volume [Entitic volume] b y Automated count 111.7 fL 81.0 - 101 H [facility] Erythrocyte mean corpuscular hemoglobin [Entitic mass] by Automated count 37.1 pg 27.0 - 34.0 H [facility] Erythrocyte mean corpuscular hemoglobin concentration [Mass/volume] by Automated count 33.2 g/dL 31.0 - 36.0 [facility] Erythrocyte distribution width [Ratio] by Automated count 15.1 % 11.5 - 14.5 H [facility] Platelets [#/volume] in Blood by Automated count 335 10^3/uL 150 - 45 0 [facility] Platelet mean volume [Entitic volume] in Blood by Automated count 9.5 fL 7.4 - 10.4 [facility] Neutrophils/100 leukocytes in Blood by Automated count 60.8 % 37. 0 - 80.0 [facility] Lymphocytes/100 leukocytes in Blood by Manual count 7.4 % 25.0 - 40.0 L [facility] Monocytes/100 leukocytes in Blood by Automated count 27.0 % 3.0 - 8.0 H [facility] Eosinophils/100 leukocytes in Blood by Automated count 2.7 % 0.0 - 7.0 [facility] 1.0 %IG 1.1 % 0.0 - 0.0 H [facility] al %NRBC 0.0 % 0.0 - 0.0 [facility] al Neutrophils [#/volume] in Blood by Automated count 5.87 10^3/uL 2.00 - 6.90 [facility] Lymphocytes [#/volume] in Blood by Automated count 0.72 10^3/uL 0.60 - 3.40 [facility] Monocytes [#/volume] in Blood by Automated count 2.61 10^3/uL 0.00 - 0.90 H [facility] Eosinophils [#/volume] in Blood by Automated count 0.26 10^3/uL 0.00 - 0.70 [facility] Basophils [#/volume] in Blood by Automated count 0.10 10^3/uL 0.00 - 0.20 [facility] #IG 0.11 10^3/uL 0.00 - 0.[address] [facility] #NRBC 0.00 10^3/uL 0.00 - 0.00 [facility] MANUAL DIFF SEE BELOW [facility] Segmented neutrophils/100 leukocytes in Blood by Manual count 67 % 37 - 80 [facility] BAND 0 % 0 - 5 [facility] %LYMPH 12 % 25 - 40 L [facility] %MONO 18 % 3 - 8 H [facility] %EOS 3 % 0 - 7 [facility] 0 RBC MORPH NOT INDICATED [facility] spital ID Date Data Source [id number] 08/07/2020 12:34:00 PM EDT [facility] [address] [place] [address] PHONE: [phone] FAX: [phone] Name .................. : JUANITO Daniels Acct Number.................. : [id number] ROOM. ................. : CCU3 Number ................... : [id number] Stay type ............. : I/P Discharge Date......... ... : Admit Date ......... : 08/05/20 Admit Phys .................... : SHIVANI VANESSA Date of ....... : 1965 Family Phys ................... : REGINE GAIL Phone .................. : [phone] Age ................................ : 55 Film# .................. .:[id number] Sex ................................. : F Unsigned transcriptions are preliminary reports and do not represent a medical or legal document CHEST PORTABLE [id number] COMPLETE:08/05/20 22:29 RLB [id number] Reason(s): Chest Pain PORTABLE CHEST X-RAY: COMPARISON: 08/01/20 FINDINGS: Again seen is a large left upper lobe mass. There does appear to be left lower lobe atelectasis and/or pleuroparenchymal scarring. There is mild pulmonary vascular congestion in the aerated right lung. Some of this could be related to hypoventilation. PA and lateral is suggested when the patient is stable. The heart size could not be evaluated. A right-sided lung central venous catheter and fixation hardware in the thoracic spine remain as previous. IMPRESSION: No significant change large left upper lobe mass. Cannot exclude mild pulmonary v ascular hypertension in the aerated right lung. Left lower lobe atelectasis/scarring. Suggest PA and lateral radiographs of the chest when the patient is stable. Electronically Reviewed and Signed By Elier Rodríguez MD , 08/07/20 12:34, [facility] Transcribe Initials: REYES , Transcribe Date: 08/05/20 22:54, Dictation Date: Copy for: 710 [facility] DISCHARGED Page 1 of 1 Name Value Range Interpretation Code Description Data Maura rce(s) Supporting Document(s) ID Date Data Source [id number] 08/07/2020 08:52:00 AM EDT [facility] [address] [place] [address] RESPIRATORY CARE REPORT ==== ---------NAME------- NUMBER SEX AGE ADMIT DISC. XRAY# F/C CYNDY Daniels [id number] F 55 08/05/20 [id number] B1 I/P DATE OF : 1965 M/R# [id number] PH#: [phone] CCU3 LOCATION: EMERGENCY DEPT EKG [id number] COMPL ETE:08/07/20 07:21 CJM [id number] PHYSICIAN: SHIVANI MENDEZ Name Value Range Interpretation Code Description Data Maura rce(s) Supporting Document(s) ID Date Data Source [id number] 08/06/2020 11:11:00 [place] [address] PROGRESS NOTENAME: JUANITO Daniels ROOM#: [id number] OF : 1965 MR#: [id number] DATE: 08/05/20 OF SERVICE: 08/06/20UBJECTIVE: This patient came in with atrial fibrillation with rapid ventricular rate. Patient was on aCardizem drip 10 mg/hr IV. She converted to regular sinus rhythm in the middle of the night. ROS: Thepatient complains of tiredness and dyspnea. Denies any chest pain. There are no chills or fever. No cough orhemoptysis. No bowel disturbance. No ankle edema.OBJECTIVE: On exam, moderately built. Blood pressure is 162/80. Head is normal. Heart is regular sinusrhythm. Lungs are clear. Abdomen is soft. Extremities are normal.LABORATORY DATA: CT scan of the chest showed consolidation and collapse of the left upperlobe from carcinoma, lateral lobe mass. EKG is now regular sinus rhythm. Platelet count is only47,000. Hemoglobin is 9.5. Hemoglobin A1C is 4.8. BNP is 1738. Lactic acid is 1.6. Potassium is 4.BUN is 11. Creatinine is 1.2.ASSESSMENT: Patient has the following issues:1. Atrial fibrillation, now in regular sinus rhythm. Plan is to add Cardizem CD 180 daily and continue Bystolic 5 mg daily.2. Anemia. Hemoglobin is 9.5. Plan to get serum iron level and we will give her IV Venofer 200 mg IV and Procrit 20,000 units subcutaneous. The patient has carcinoma of the lung.3. Platelets are low, being 47,000. Plan to decrease the Xarelto to 10 mg daily.DD: Osmel Alvarez MD, PC 08/06/20 11:36DT: DMZ 08/06/20 23:06DS: Osmel Alvarez MD, PC 08/07/20 07:51 1 Name Value Range Interpretation Code Description Data Maura rce(s) Supporting Document(s) ID Date Data Source [id number] 08/07/2020 06:55:00 AM EDT [facility] Name Value Range Interpretation Code Description Data Maura rce(s) Supporting Document(s) CBC W/AUTOMATED DIFF [facility] COMPLETE BLOOD COUNT Leukocytes [#/volume] in Blood by Automated count 3.0 10^3/uL 4.2 - 1 1.0 L [facility] Erythrocytes [#/volume] in Blood by Automated count 2.38 10^6/uL 4. 20 - 5.40 L [facility] Hemoglobin [Mass/volume] in Blood 9.1 g/dL 12.0 - 16.0 L [facility] Hematocrit [Volume Fraction] of Blood by Automated count 25.9 % 3 7.0 - 47.0 L [facility] Erythrocyte mean corpuscular volume [Entitic volume] b y Automated count 108.8 fL 81.0 - 101 H [facility] Erythrocyte mean corpuscular hemoglobin [Entitic mass] by Automated count 38.2 pg 27.0 - 34.0 H [facility] Erythrocyte mean corpuscular hemoglobin concentration [Mass/volume] by Automated count 35.1 g/dL 31.0 - 36.0 [facility] Erythrocyte distribution width [Ratio] by Automated count 13.6 % 11.5 - 14.5 [facility] Platelets [#/volume] in Blood by Automated count 49 10^3/uL 150 - 450 L [facility] Platelet mean volume [Entitic volume] in Blood by Automated count 9.9 fL 7.4 - 10.4 [facility] Neutrophils/100 leukocytes in Blood by Automated count 50.0 % 37. 0 - 80.0 [facility] Lymphocytes/100 leukocytes in Blood by Manual count 11.7 % 25.0 - 40.[address] [facility] Monocytes/100 leukocytes in Blood by Automated count 31.7 % 3.0 - 8.[address] [facility] Eosinophils/100 leukocytes in Blood by Automated count 6.0 % 0.0 - 7.0 [facility] 0.3 %IG 0.3 % 0.0 - 0.0 H [facility] %NRBC 0.0 % 0.0 - 0.0 [facility] al Neutrophils [#/volume] in Blood by Automated count 1.50 10^3/uL 2.00 - 6.90 L [facility] Lymphocytes [#/volume] in Blood by Automated count 0.35 10^3/uL 0.60 - 3.40 L [facility] Monocytes [#/volume] in Blood by Automated count 0.95 10^3/uL 0.00 - 0.90 H [facility] Eosinophils [#/volume] in Blood by Automated count 0.18 10^3/uL 0.00 - 0.70 [facility] Basophils [#/volume] in Blood by Automated count 0.01 10^3/uL 0.00 - 0.20 [facility] #IG 0.01 10^3/uL 0.00 - 0.10 [facility] #NRBC 0.00 10^3/uL 0.00 - 0.00 [facility] MANUAL DIFF SEE BELOW [facility] ital Segmented neutrophils/100 leukocytes in Blood by Manual count 54 % 37 - 80 [facility] BAND 0 % 0 - 5 [facility] %LYMPH 16 % 25 - [address] [facility] al %MONO 25 % 3 - 8 H [facility] %EOS 5 % 0 - 7 [facility] 0 RBC MORPH NOT INDICATED [facility] ID Date Data Source [id number] 08/07/2020 06:54:00 AM EDT [facility] Name Value Range Interpretation Code Description Data Maura rce(s) Supporting Document(s) Magnesium [Mass/volume] in Serum or Plasma 1.5 MG/DL 1.7 - 2.2 L [facility] ID Date Data Source [id number] 08/07/2020 06:54:00 AM EDT [facility] Name Value Range Interpretation Code Description Data Maura rce(s) Supporting Document(s) COMPREHENSIVE METABOLIC PANEL [facility] COMPREHENSIVE METABOLIC PANEL Sodium [Moles/volume] in Serum or Plasma 135 mEq/L 134 - 153 [facility] Potassium [Moles/volume] in Serum or Plasma 3.8 mEq/L 3.6 - 5.0 [facility] Chloride [Moles/volume] in Serum or Plasma 97 mEq/L 98 - 107 L [facility] Carbon dioxide, total [Moles/volume] in Serum or Plasma 29 MEQ/L 22 - 30 [facility] Glucose [Mass/volume] in Serum or Plasma 112 MG/DL 65 - 110 H [facility] BUN 10 MG/DL 7 - 21 [facility] Creatinine [Mass/volume] in Serum or Plasma 1.2 MG/DL 0.7 - 1.5 [facility] BUN/CREAT 8 8 - 27 [facility] al Protein [Mass/volume] in Serum or Plasma 5.9 G/DL 6.3 - 8.2 L [facility] Albumin [Mass/volume] in Serum or Plasma 3.3 G/DL 3.9 - 5.0 L [facility] Globulin [Mass/volume] in Serum by calculation 2.6 GM/DL 2.4 - 3.2 [facility] A/G RATIO 1.3 0.8 - 2.0 [facility] Calcium [Mass/volume] in Serum or Plasma 8.0 MG/DL 8.4 - 10.2 L [facility] Bilirubin.total [Mass/volume] in Serum or Plasma <0.7 MG/DL 0.2 - 1.3 [facility] Alkaline phosphatase [Enzymatic activity/volume] in Serum or Plasma 137 U/L 38 - 126 H [facility] Aspartate aminotransferase [Enzymatic activity/volume] in Serum or Plasma 30 U/L 5 - 40 [facility] Alanine aminotransferase [Enzymatic activity/volume] in Seru m or Plasma 20 U/L 7 - 56 [facility] Anion gap 3 in Serum or Plasma 9.0 mmol/L 8.0 - 16.0 [facility] AGE [address] [facility] NON-AA GFR 50 mL/min [facility] willy AFR AMER GFR 60 mL/min [facility] Male GFR In terprentation 20-49 yrs >60 mL/min Normal 50-59 yrs >56 mL/min Normal 60-69 yrs >49 mL/min Normal 70-79yrs >42 mL/min Normal 80 and above >35 mL/min Normal Female GFR Interpretation 20-39 yrs >60 mL/min Normal 40-49 yrs >58 mL/min Normal 50-59 yrs >51 mL/min Normal 60-69 yrs >45 mL/min Normal 70-79 yrs >39 mL/min Normal 80 and above >32 mL/min Normal ID Date Data Source [id number] 08/06/2020 11:13:00 AM EDT [address] [place] [address] RESPIRATORY CARE REPORT ==== ---------NAME------- NUMBER SEX AGE ADMIT DISC. XRAY# F/C HENDRICKS [facility] [id number] F 55 08/05/20 [id number] B1 I/P DATE OF : 1965 M/R# [id number] #: [id number] CCU3 LOCATION: EMERGENCY DEPT EKG 16853 COMPLET E:08/06/20 11:00 WL [id number] PHYSICIAN: SHIVANI MENDEZ Name Value Range Interpretation Code Description Data Maura rce(s) Supporting Document(s) ID Date Data Source [id number] 08/06/2020 11:11:00 AM EDT [address] [place] [address] RESPIRATORY CARE REPORT ==== ---------NAME------- NUMBER SEX AGE ADMIT DISC. XRAY# F/C CYNDY Daniels [id number] F 55 08/05/20 [id number] B1 I/P DATE OF : 1965 M/R# [id number] PH#: [phone] RM CCU3 LOCATION: EMERGENCY DEPT EKG [id number] COMPLET E:08/06/20 04:39 VMT 05252 PHYSICIAN: SHIVANI MENDEZ Name Value Range Interpretation Code Description Data Maura rce(s) Supporting Document(s) ID Date Data Source [id number] 08/06/2020 11:10:00 [place] [address] RESPIRATORY CARE REPORT ==== ---------NAME------- NUMBER SEX AGE ADMIT DISC. XRAY# F/C CYNDY Daniels [id number] F 55 08/05/20 [id number] B1 I/P DATE OF : 1965 M/R# [id number] PH#: [phone] CCU3 LOCATION: EMERGENCY DEPT EKG 12372 COMPLET E:08/06/20 04:39 VMT 96457 PHYSICIAN: SHIVANI MENDEZ Name Value Range Interpretation Code Description Data Maura rce(s) Supporting Document(s) ID Date Data Source [id number] 08/06/2020 11:09:00 [place] [address] RESPIRATORY CARE REPORT ==== ---------NAME------- NUMBER SEX AGE ADMIT DISC. XRAY# F/C CYNDY Daniels [id number] F 55 08/05/20 [id number] B1 I/P DATE OF : 1965 M/R# [id number] PH#: [phone] CCU3 LOCATION: EMERGENCY DEPT EKG 51741 COMPLET E:08/06/20 04:39 VMT 19320 PHYSICIAN: SHIVANI MENDEZ Name Value Range Interpretation Code Description Data Maura rce(s) Supporting Document(s) ID Date Data Source [id number] 08/06/2020 11:08:00 AM EDT [address] [place] [address] RESPIRATORY CARE REPORT ==== ---------NAME------- NUMBER SEX AGE ADMIT DISC. XRAY# F/C CYNDY Daniels [id number] F 55 08/05/20 [id number] B1 I/P DATE OF : 1965 M/R# [id number] PH#: [phone] CCU3 LOCATION: EMERGENCY DEPT EKG 73177 COMPLET E:08/06/20 04:39 VMT 89116 PHYSICIAN: SHIVANI MENDEZ Name Value Range Interpretation Code Description Data Maura rce(s) Supporting Document(s) ID Date Data Source [id number] 08/06/2020 11:07:00 [place] [address] RESPIRATORY CARE REPORT ==== ---------NAME------- NUMBER SEX AGE ADMIT DISC. XRAY# F/C CYNDY Daniels [id number] F 55 08/05/20 [id number] B1 I/P DATE OF : 1965 M/R# [id number] PH#: [phone] RM CCU3 LOCATION: EMERGENCY DEPT EKG 26295 COMPLET E:08/06/20 04:39 VMT 08664 PHYSICIAN: SHIVANI MENDEZ Name Value Range Interpretation Code Description Data Maura rce(s) Supporting Document(s) ID Date Data Source [id number] 08/06/2020 11:06:00 [place] [address] RESPIRATORY CARE REPORT ==== ---------NAME------- NUMBER SEX AGE ADMIT DISC. XRAY# F/C CYNDY Daniels [id number] F 55 08/05/20 [id number] B1 I/P DATE OF : 1965 M/R# [id number] PH#: [phone] RM CCU3 LOCATION: EMERGENCY DEPT EKG 58394 COMPLET E:08/06/20 04:39 VMT 11097 PHYSICIAN: SHIVANI MENDEZ Name Value Range Interpretation Code Description Data Maura rce(s) Supporting Document(s) ID Date Data Source [id number] 08/06/2020 11:05:00 [place] [address] RESPIRATORY CARE REPORT ==== ---------NAME------- NUMBER SEX AGE ADMIT DISC. XRAY# F/C CYNDY Daniels [id number] F 55 08/05/20 [id number] B1 I/P DATE OF : 1965 M/R# [id number] PH#: [phone] CCU3 LOCATION: EMERGENCY DEPT EKG 15700 COMPLET E:08/06/20 02:15 VMT 60897 PHYSICIAN: SHIVANI MENDEZ Name Value Range Interpretation Code Description Data Maura rce(s) Supporting Document(s) ID Date Data Source [id number] 08/06/2020 07:24:00 [place] [address] ---------NAME--------- NUMBER SEX AGE ADMIT DISC. XRAY# F/C OSMANI JUANITO Daniels [id number] 08/05/20 [id number] B1 I/P DATE OF : 1965 M/R# [id number] PH#: [phone] CCU3 LOCATION: EMERGENCY DEPT TRANSCRIBED: 08/06/20 7:[address] THORAX W/O CONTRAST [id number] COMPLETED:08/06/20 6:07 RLB [id number] {REASON FOR CHEST: Pleural Effusion PHYSICIAN: SHIVANI MENDEZ== R A D I O L O G Y R E P O R T =====PATIENT HISTORY:Pleural Effusion. Accumulated DLP-670.3 mGy*cm, Estimated DLP-662.4 mGy*cm.Menopause.Verification of 2 patient identifiers performed. - RLB / Exam Results (DICOM Hx)CT ChestHistory:Pleural Effusion. Accumulated DLP- 670.3 mGy*cm, Estimated DLP-662.4 mGy*cm.Menopause. Verification of 2 patient identifiers performed. - RLB (Hx) / ExamResults (DICOM Hx)Technique:CT THORAX W/O CONTRASTDose length product (mGy-cm): Not providedReformations: NoneContrast: WithoutComparison: CTFindings:Right-sided indwelling catheter noted.There is no aortic aneurysm.Minimal cardiomegaly is noted.Trace pericardial effusion is noted.Consolidation collapse of the left upper lobe of indeterminate etiology.Scattered minor atelectasis in the lungs are noted.Subtle minimal bilateral groundglass opacities noted in the remaining aeratedlungs.No adenopathy within the mediastinum or hilar regions.No infiltrates, effusions or pneumothorax.Moderate kyphosis with mid thoracic vertebral body compression frac tures arefixed by posterior hook and chu formation.IMPRESSIONS:Consolidation collapse of the left upper lobe of indeterminate etiology.Underlying left upper lobe mass lesion or pneumonia are not excluded.Subtle minimal bilateral groundglass opacities noted in the remaining aeratedlungs and and may represent atelectasis versus small airway disease, mild CHF,asthma, bronchiolitis obliterans, h or other etiologies.While performing the above CT examination, radiation dose reduction wasaccomplished utilizing automated exposure control, adjusting of the mA and kVbased on the patient's body size and/or the use of imperative reconstructivetechniques.Electronically Signed By:Kevon Lipscomb M.D. , RadiologistDate/Time: 08/06/20 07:24 Name Value Range Interpretation Code Description Data Maura rce(s) Supporting Document(s) ID Date Data Source [id number] 08/06/2020 08:02:00 AM EDT [facility] Name Value Range Interpretation Code Description Data Maura rce(s) Supporting Document(s) Lactate [Moles/volume] in Serum or Plasma 1.6 MMOL/L 0.2 - 2.2 [facility] ID Date Data Source [id number] 08/06/2020 08:02:00 AM EDT [facility] Name Value Range Interpretation Code Description Data Maura rce(s) Supporting Document(s) CBC W/AUTOMATED DIFF [facility] COMPLETE BLOOD COUNT Leukocytes [#/volume] in Blood by Automated count 2.8 10^3/uL 4.2 - 1 1.0 L [facility] Erythrocytes [#/volume] in Blood by Automated count 2.57 10^6/uL 4. 20 - 5.40 L [facility] Hemoglobin [Mass/volume] in Blood 9.5 g/dL 12.0 - 16.0 L [facility] Hematocrit [Volume Fraction] of Blood by Automated count 27.9 % 3 7.0 - 47.0 L [facility] Erythrocyte mean corpuscular volume [Entitic volume] b y Automated count 108.6 fL 81.0 - 101 H [facility] Erythrocyte mean corpuscular hemoglobin [Entitic mass] by Automated count 37.0 pg 27.0 - 34.0 H [facility] Erythrocyte mean corpuscular hemoglobin concentration [Mass/volume] by Automated count 34.1 g/dL 31.0 - 36.0 [facility] Erythrocyte distribution width [Ratio] by Automated count 13.6 % 11.5 - 14.5 [facility] Platelets [#/volume] in Blood by Automated count 47 10^3/uL 150 - 450 L [facility] Platelet mean volume [Entitic volume] in Blood by Automated count 10.7 fL 7.4 - 10.4 H [facility] Neutrophils/100 leukocytes in Blood by Automated count 48.1 % 37. 0 - 80.0 [facility] Lymphocytes/100 leukocytes in Blood by Manual count 9.6 % 25.0 - 40.0 L [facility] Monocytes/100 leukocytes in Blood by Automated count 33.7 % 3.0 - 8.0 H [facility] Eosinophils/100 leukocytes in Blood by Automated count 7.8 % 0.0 - 7.0 H [facility] Basophils/100 leukocytes in Blood by Automated count 0.4 % 0.0 - 2.5 [facility] %IG 0.4 % 0.0 - 0.[address] [facility] %NRBC 0.0 % 0.0 - 0.0 [facility] al Neutrophils [#/volume] in Blood by Automated count 1.36 10^3/uL 2.00 - 6.90 L [facility] Lymphocytes [#/volume] in Blood by Automated count 0.27 10^3/uL 0.60 - 3.40 L [facility] Monocytes [#/volume] in Blood by Automated count 0.95 10^3/uL 0.00 - 0.90 H [facility] Eosinophils [#/volume] in Blood by Automated count 0.22 10^3/uL 0.00 - 0.70 [facility] Basophils [#/volume] in Blood by Automated count 0.01 10^3/uL 0.00 - 0.20 [facility] #IG 0.01 10^3/uL 0.00 - 0.10 [facility] #NRBC 0.00 10^3/uL 0.00 - 0.00 [facility] MANUAL DIFF NOT INDICATED [facility] RBC MORPH NOT INDICATED [facility] ID Date Data Source [id number] 08/06/2020 08:00:00 AM EDT [facility] Name Value Range Interpretation Code Description Data Maura rce(s) Supporting Document(s) BNP 1738 PG/ML 0 - [address] [facility]illy ID Date Data Source [id number] 08/06/2020 08:00:00 AM EDT [facility] Name Value Range Interpretation Code Description Data Maura rce(s) Supporting Document(s) TROPONIN T <0.01 NG/ML 0.00 - 0.10 [facility] TROPONIN T0.1 ng/ml Recommended as the c linical threshold value forTroponin T. ID Date Data Source [id number] 08/06/2020 08:00:00 AM EDT [facility] Name Value Range Interpretation Code Description Data Maura rce(s) Supporting Document(s) Hemoglobin A1c/Hemoglobin.total in Blood 4.8 % 4.4 - 6.1 [facility] {A1]{HB] ID Date Data Source [id number] 08/06/2020 07:38:00 AM EDT [facility] Name Value Range Interpretation Code Description Data Maura rce(s) Supporting Document(s) [facility] Cholesterol [Mass/volume] in Serum or Plasma 154 MG/DL 131 - 200 [facility] Deprecated Triglyceride [Mass/volume] in Serum or Plasma 130 MG/DL 3 5 - 160 [facility] HDL 63 MG/DL 29 - 86 [facility] Cholesterol in LDL [Mass/volume] in Serum or Plasma by Direc t assay 68 mg/dL 65 - 175 [facility] Cholesterol.total/Cholesterol in HDL [Mass Ratio] in Serum o r Plasma 2.4 3.2 - 4.4 L [facility] LDL/HDL 1.08 1.47 - 3.22 L [facility] CVE RISK CHOL/HDL LDL/HDLMEN: 1/2 AVERAGE 3.43 1.00 AVERAGE 4.97 3.55 2X AVERAGE 9.55 6.25 3X AVERAGE 23.99 7.99WOMEN: 1/2 AVERAGE 3.27 1.47 AVERAGE 4.44 3.22 2X AVERAGE 7.05 5.03 3X AVERAGE 11.04 6.14 ID Date Data Source [id number] 08/06/2020 07:38:00 AM EDT [facility] Name Value Range Interpretation Code Description Data Maura rce(s) Supporting Document(s) COMPREHENSIVE METABOLIC PANEL [facility] COMPREHENSIVE METABOLIC PANEL Sodium [Moles/volume] in Serum or Plasma 137 mEq/L 134 - 153 [facility] Potassium [Moles/volume] in Serum or Plasma 4.0 mEq/L 3.6 - 5.0 [facility] Chloride [Moles/volume] in Serum or Plasma 99 mEq/L 98 - 107 [facility] Carbon dioxide, total [Moles/volume] in Serum or Plasma 30 MEQ/L 22 - 30 [facility] Glucose [Mass/volume] in Serum or Plasma 114 MG/DL 65 - 110 H [facility] BUN 11 MG/DL 7 - 21 [facility] Creatinine [Mass/volume] in Serum or Plasma 1.2 MG/DL 0.7 - 1.5 [facility] BUN/CREAT 9 8 - 27 [facility] Protein [Mass/volume] in Serum or Plasma 6.1 G/DL 6.3 - 8.2 L [facility] Albumin [Mass/volume] in Serum or Plasma 3.4 G/DL 3.9 - 5.0 L [facility] Globulin [Mass/volume] in Serum by calculation 2.7 GM/DL 2.4 - 3.2 [facility] A/G RATIO 1.3 0.8 - 2.0 [facility] Calcium [Mass/volume] in Serum or Plasma 8.1 MG/DL 8.4 - 10.2 L [facility] Bilirubin.total [Mass/volume] in Serum or Plasma <0.7 MG/DL 0.2 - 1.3 [facility] Alkaline phosphatase [Enzymatic activity/volume] in Serum or Plasma 129 U/L 38 - 126 H [facility] Aspartate aminotransferase [Enzymatic activity/volume] in Serum or Plasma 33 U/L 5 - 40 [facility] Alanine aminotransferase [Enzymatic activity/volume] in Seru m or Plasma 22 U/L 7 - 56 [facility] Anion gap 3 in Serum or Plasma 8.0 mmol/L 8.0 - 16.0 [facility] AGE 55 yrs [facility] NON-AA GFR 50 mL/min [facility] AFR AMER GFR 60 mL/min [facility] Male GFR In terprentation 20-49 yrs >60 mL/min Normal 50-59 yrs >56 mL/min Normal 60-69 yrs >49 mL/min Normal 70-79yrs >42 mL/min Normal 80 and above >35 mL/min Normal Female GFR Interpretation 20-39 yrs >60 mL/min Normal 40-49 yrs >58 mL/min Normal 50-59 yrs >51 mL/min Normal 60-69 yrs >45 mL/min Normal 70-79 yrs >39 mL/min Normal 80 and above >32 mL/min Normal ID Date Data Source [id number] 08/06/2020 07:35:00 AM EDT [facility] Name Value Range Interpretation Code Description Data Maura rce(s) Supporting Document(s) Magnesium [Mass/volume] in Serum or Plasma 1.7 MG/DL 1.7 - 2.2 [facility] ID Date Data Source [id number] 08/06/2020 12:59:00 PM EDT [facility] Value Range Interpretation Code Description Data Maura rce(s) Supporting Document(s) Cobalamin (Vitamin B12) [Mass/volume] in Serum or Plasma 475 PG/ML 232 - 1245 [facility] ID Date Data Source [id number] 08/06/2020 12:40:00 PM EDT [facility] Value Range Interpretation Code Description Data Maura rce(s) Supporting Document(s) Iron [Mass/volume] in Serum or Plasma 50 UG/DL 42 - 135 [facility] ID Date Data Source [id number] 08/05/2020 08:23:00 PM EDT [facility] 1 OrderSheet [facility] Emergency Department [address] [place] [address] Phone #: ext- [phone] 08/05/2020 20:20 Patient: CHANTALE SOLOMON Sex: F : 1965 Age: 55yWEIGHT:83.9 kg HEIGHT:60 inches BMI:36.1ALLERGIES: Penicillins, SeafoodCHIEF COMPLAINT: chest pain, discomfortDIAGNOSIS: Atrial fibrillationLAB ORDERSOrder Description Priority Entered Acknowledged InitialedCB w Diff STAT 20:21 08/05/2020 20:26 Sandi Carmona Norma MD; Joao GallagherCMP STAT 20:21 08/05/2020 20:26 Sandi Carmona Norma MD; Joao GallagherTroponin-T STAT 20:08/05/2020 20:26 Sandi Carmona Norma MD; Joao GallagherTSH STAT 20:08/05/2020 20:26 Sandi Caromna Norma MD; Joao GallagherMagnesium STAT 20:08/05/2020 20:26 Sandi Carmona Norma MD; Joao GallagherBNP STAT 21:35 08/05/2020 21:41 Sandi Carmona Norma MD; Joao GallagherDIAGNOSTIC STUDY ORDERSOrder Description Priority Entered Acknowledged InitialedChest Portable 1 STAT 20:08/05/2020 20:37 Kristine,View Shauna Junior MD; Joao Gallagher(Oxygen?(No)) Reason for Study: Chest PainMEDICATION/IV/DRIP/FLUID ORDERSOrder Description Priority Entered Acknowledged InitialedCardizem IVP 20 20:08/05/2020 20:37 Kristine,mg (NOW x1) Shauna Junior MD; Joao GallagherIV NS 500 mL Bolus 20:08/05/2020 20:38 Kristine,: Bolus 500 mL (X1) Shauna Junior MD; Joao GallagherAmiodarone Drip IV 21:08/05/2020 21:26 Kristine- Loading Dose : Shauna Junior MD; Joao GallagherBolus 150mg, thenover 15 min (NOWx1, HIGH ALERT 2 OrderSheet [facility] Emergency Department [address] [place] [address] Phone #: ext- [phone] 08/05/2020 20:20 Patient: CHANTALE SOLOMON Sex: F : 1965 Age: 55yMEDICATION,Loading dose of150 mg/100 mLover 10 minutes(600 mL/hr))Cardizem Drip IV : STAT 21:21 08/05/2020 21:28 Kristine,10 mg/hr (Add 125 Shauna Junior MD; Joao Gallaghermg (25 mL) to 100mL NS to get 125mg/125 mL (1mg/mL)) NOTES: TTE, goal of heart rate lower than 100, notify md if bp is lower than 100mmHgMagnesium Sulfate 21:46 08/05/2020 21:52 Kristine,2 g IVPB X1 dose: 2 Shauna Junior MD; Joao Gallaghergm (HIGH ALERTMEDICATION, X1)GENERAL ORDERSOrder Description Priority Entered Acknowledged Initialed[Electronically signed by Joao Carmona R.N. (22:08/05/2020)][Electronically signed by Shauna Junior MD (00:32 08/06/2020)][Electronically locked by Joao Carmona R.N. (22:23 08/05/2020)] Name Value Range Interpretation Code Description Data Maura rce(s) Supporting Document(s) ID Date Data Source [id number] 08/05/2020 08:23:00 PM EDT [facility] 1 Medication Reconciliation Report [facility] Emergency Department [address] [place] [address] Phone #: ext- [phone] 08/05/2020 20:20 Patient: CHANTALE SOLOMON Sex: F : 1965 Age: 55yWeight: 83.9 kgHeight/Length: 60 in.BMI: 36.1ALLERGIES: Penicillins, SeafoodThe patient's Home Medications are listed below:THE FOLLOWING MEDICATIONS NEED TO BE RECONCILED: Btstolic dilTIAZem HCl Oral Pantoprazole Sodium Oral Pharmacy [facility] Spiriva HandiHaler Inhalation Symbicort Inhalation Tylenol Oral Xarelto OralThe source(s) of the original Home Medication information:Not obtained.The following Medications were given to the patient in the Emergency Department:Cardizem [IVP] IVP 20 mg, administered: 08/05/2020 8:37:00 PMNS [IV] IV Fluids bolus 0, then 500 mL/hr, administered: 08/05/2020 8:38:00 PMAmiodarone [IV Drip] Drip IV bolus 0, then 150 mg 1 mg/min, administered: 08/05/2020 9:26:00 PMCardizem [IV Drip] Drip IV bolus 0, then 10 mg 10 mg/hr, administered: 08/05/2020 9:28:00 PM 2 Medication Reconciliation Report [facility] Emerge ncy Department [address] [place] [address] Phone #: ext- [phone] 08/05/2020 20:20 Patient: CHANTALE SOLOMON Sex: F : 1965 Age: 55yMagnesium Sulfate [IV Drip] Drip IV bolus 0, then 2 gm 2 gm/hr, administered: 08/05/2020 9:52:00 PMThe following Medications were prescribed to the pa tient:None. Name Value Range Interpretation Code Description Data Maura rce(s) Supporting Document(s) ID Date Data Source [id number] 08/05/2020 08:23:00 PM EDT [facility] 1 Medication Administration Record [facility] Emergency Department [address] [place] [address] Phone #: ext- [phone] 08/05/2020 20:20 Patient: CHANTALE SOLOMON Sex: F : 1965 Age: 55yWeight: 83.9 kgHeight/Length: 60 inBMI: 36.1ALLERGIES: Penicillins, Seafood Date/Time Medication Administered Medication OrderedGiven CARDIZEM [IVP] (DILTIAZEM HCL) Cardizem IVP 20 mg (NOW x1)20:37 08/05/2020 Dose: 20 mg IVPGJoao stevenson R.N. Site: #1 left ACStart NS [IV] IV NS 500 mL Bolus : Bolus 00764:38 08/05/2020 Dose: IV Fluids mL (X1)Joao Carmona R.N. Rate: 500 mL/hr over 60 minute(s)---- Dispensed: 1000 mL bagContinued Upon Disposition Site: #1 left AC22:06 08/05/2020Joao Carmona R.N.Start AMIODARONE [IV DRIP] Amiodarone Drip IV - Azksqtp41:26 08/05/2020 Dose: 150 mg Drip IV Dose : Bolus 150mg, then over 15GrJoao mcfarland R.N. Rate: 1 mg/min over 10 minute(s) min (NOW x1, HIGH ALERT---- Dispensed: 100 mL bag MEDICATION, Loading dose ofStop Site: #1 left AC 150 mg/100 mL over 10 fmkadfe85:35 08/05/2020 (600 mL/hr))Joao Carmona R.N.Start CARDIZEM [IV DRIP] Cardizem Drip IV : 10 mg/hr (Add21:28 08/05/2020 Dose: 10 mg Drip IV 125 mg (25 mL) to 100 mL NS toGJoao stevenson R.N. Rate: 10 mg/hr over 100 minute(s) get 125 mg/125 mL (1 mg/mL));---- Dispensed: 100 mL bag Stat (TTE, goal of heart rate lowerContinued Upon Disposition Site: #2 right wrist than 100, notify md if bp is lower22:12 08/05/2020 than 100mmHg)Joao Carmona R.N.Start MAGNESIUM SULFATE [IV DRIP] Magnesium Sulfate 2 g IVPB X121:52 08/05/2020 Dose: 2 gm Drip IV dose: 2 gm (HIGH ALERTJoao Carmona R.N. Rate: 2 gm/hr over 60 minute(s) MEDICATION, X1)---- Dispensed: 50 mL bagContinued Upon Disposition Site: #2 right wrist22:12 08/05/2020Joao Carmona R.N. Name Value Range Interpretation Code Description Data Maura rce(s) Supporting Document(s) ID Date Data Source [id number] 08/05/2020 08:23:00 PM EDT [facility] 1 General Instructions [facility] Emergency Department [address] [place] [address] Phone #: ext- [phone] 08/05/2020 20:20 Patient: CHANTALE SOLOMON Sex: F : 1965 Age: 55yAtrial fibrillation with uncontrolled rate.(Electronically signed by Shauna Junior MD 08/06/2020 00:32) Name Value Range Interpretation Code Description Data Maura rce(s) Supporting Document(s) ID Date Data Source [id number] 08/05/2020 08:23:00 PM EDT [facility] 1 Clinical Report - Nurses [facility] Emergency Department [address] [place] [address] Phone #: ext [phone] 08/05/2020 20:20 Patient: CHANTALE SOLOMON Sex: F : 1965 Age: 55yTRIAGEHistorian: patient. ( via POV c/o Increased heart rate).Acuity: LEVEL 2.This started just prior to arrival. --20:24 08/05/20 Joao Carmona R.N.20:22 08/05/20. BP: 135/97. MAP: 109. HR: 149. RR: 24. O2 saturation: 100% at 2 liters/minute. --20: Joao Carmona R.N.The patient has had weakness. --20:25 08/05/20 Joao Carmona R.N.Chief Complaint: PALPITATIONS. --22:19 08/05/20 Joao Carmona R.N.22:19 08/05/20. BP: 0. --22:20 08/05/20 Joao Carmona R.N.22:20 08/05/20. Pain level now: 0. --22:20 08/05/20 Joao Carmona R.N.22:20 08/05/20. Temp: 97.8 F. --22:21 08/05/20 Joao Carmona R.N.Weight: 83.9 kg. Height/Length: 60 inches. BMI: 36.1. --20:23 08/05/20 Joao Carmona R.N.MedicationsdilTIAZem HCl Oral. Pantoprazole Sodium Oral. Pharmacy [facility]. Spiriva HandiHaler Inhalation. Symbicort Inhalation. Tylenol Oral. Xarelto Oral. --20:25 08/05/20 Joao Carmona R.N. Btstolic. --21:55 08/05/20 Joao Carmona R.N.AllergiesPenicillins.Seafood. --20:25 08/05/20 Joao Carmona R.N.HistorySOCIAL HX: The patient was offered HIV testing but declined and hepatitis C testing but declined.SELF HARM ASSESSMENT: Self harm assessment was performed. The patient answered "no" to thequestion(s) "Have you recently felt down, depressed, or hopeless?", "Do you have thoughts of harming or 2 Clinical Report - Nurses [facility] Emergency Department [address] [place] [address] Phone #: [phone]- [phone] 08/05/2020 20:20 Patient: CHANTALE SOLOMON Sex: F : 1965 Age: 55y killing yourself?" and "Do you have a plan for harming or killing yourself?". ABUSE ASSESSMENT: Abuse assessment. NUTRITIONAL RISK ASSESSMENT: The nutritional risk assessment revealed no deficiencies. FUNCTIONAL ASSESSMENT: Functional assessment: no impairments noted. LEARNING NEEDS ASSESSMENT: The learning needs assessment revealed no barriers. FALL RISK ASSESSMENT: Fall risk assessment completed. No risk factors identified. SKIN INTEGRITY ASSESSMENT: Skin integrity risk assessment completed. No skin integrity risk identified. --20:24 08/05/20 Joao Carmona R.N. PAST MEDICAL HX: Heart disease. SOCIAL HX: Former smoker. Occasional alcohol use. The patient has not traveled outside the [place] Infectious disease exposure: No infectious disease exposure. --20:25 08/05/20 Joao Carmona R.N.PHYSICAL ASSESSMENTGENERAL / NEURO / PSYCH: Appears anxious and in distress.RESPIRATORY: Respirations not labored.CVS: Cardiac rhythm: atrial flutter with rapid ventricular response.SKIN: Skin is warm and dry. --20:39 08/05/20 Joao Carmona R.N. 20:39 08/05/20. BP: 97/73. MAP: 81. HR: 82. RR: 19. O2 saturation: 100% at 2 liters/minute. Temp: deferred. --20:40 08/05/20 Joao Carmona R.N.NURSING PROGRESS NOTES20:23 08/05/2020 Site #2 started via IV in the right wrist with an 20g angiocath; two attempts. --20:381 Joao Carmona R.N. 20:27 08/05/2020 Site #1 started via IV in the left antecubital space with an 20g angiocath; one attempt. Saline lock flushed with 3 mL saline. --20:37 08/05/20 Joao Carmona R.N. 20:37 08/05/2020 Cardizem (dilTIAZem HCl) IVP 20 mg given over 5 minute(s) via site #1. --20:37 08/05/20 Joao Carmona R.N. 20:38 08/05/2020 Started bag #1 1000 mL IV Fluids NS; at 500 mL/hr over 60 minute(s) via site #1 --20:38 08/05/20 Joao Carmona R.N. 20:41 08/05/20. BP: 107/88. MAP: 94. HR: 108. RR: 24. O2 saturation: 100% at 2 liters/minute. Temp: deferred. --20:41 08/05/20 Joao Carmona R.N. 3 Clinical Report - Nurses [facility] Emergency Department [address] [place] [address] Phone #: ext- [phone] 08/05/2020 20:20 Patient: CHANTALE SOLOMON Sex: F : 1965 Age: 55yCardiac monitor, NIBP monitor and pulse oximeter placed on patient. Reassessment after medicationadministered. Pain still present. Overall patient status is improved- she states feels better.CVS: The patient reports chest pain is still present but improving and currently described as pressure-like.Cardiac rhythm: normal sinus rhythm. Bed placed in lowest position. Brakes of bed on. --20:43 08/05/20Joao Carmona R.N.21:18 08/05/20. BP: 124/75. MAP: 91. HR: 149. RR: 23. O2 saturation: 100%. Temp: deferred. Pain levelnow: 0/10. --21:19 08/05/20 Joao Carmona R.N.Reassurance given to the patient. ( Dr Michele here for consultation). --21:19 08/05/20 Joao Carmona R.N.21:26 08/05/2020 Started 150 mg of Amiodarone Drip IV in bag #1 100 mL; at 1 mg/min over 10 minute(s)via site #1. --21:26 08/05/20 Joao Carmona R.N.21:28 08/05/2020 Started 10 mg of Cardizem Drip IV in bag #1 100 mL; at 10 mg/hr over 100 minute(s) viasite #2. --21:28 08/05/20 Joao Cramona R.N.21:28 08/05/20. BP: 110/83. MAP: 92. HR: 145. RR: 25. O2 saturation: 100% at 2 liters/minute. Temp:deferred. --21:29 08/05/20 Joao Carmona R.N.21:35 08/05/2020 Amiodarone Drip IV via IV site #1 Discontinued: bag #2 completed. Total amountinfused: 100 mL. --21:35 08/05/20 Joao Carmona R.N.21:32 08/05/20. BP: 107/74. MAP: 85. HR: 97. RR: 19. O2 saturation: 100% at 2 liters/minute. Temp:deferred. Pain level now: 0/10. --21:35 08/05/20 Joao Carmona R.N.( Feeling much better with minimal pressure in lower chest. Denies SOB.). --21:39 08/05/20 Joao Carmona R.N.21:52 08/05/2020 Started 2 gm of Magnesium Sulfate Drip IV in bag #1 50 mL; at 2 gm/hr over 60minute(s) via site #2. --21:52 08/05/20 Joao Carmona R.N.21:52 08/05/20. BP: 111/82. MAP: 91. HR: 77. RR: 20. O2 saturation: 100%. Temp: deferred. Pain levelnow: 0/10. --21:54 08/05/20 Joao Carmona R.N.22:06 08/05/2020 IV Fluids NS via IV site #1 Continued: at the rate of 150 mL/hr. 700 mL remaining bag#1. --22:21 08/05/20 Joao Carmona R.N.22:12 08/05/2020 Cardizem Drip IV via IV site #2 Continued: at the rate of 10 mg/hr. 60 mL remaining bag#2. --22:22 08/05/20 Joao Carmona R.N.22:12 08/05/2020 Magnesium Sulfate Drip IV via IV site #2 Continued: at the rate of 2 gm/hr. 50 mLremaining bag #3. --22:22 08/05/20 Joao Carmona R.N. 4 Clinical Report - Nurses [facility] Emergency Department [address] [place] [address] Phone #: ext- [phone] 08/05/2020 20:20 Patient: CHANTALE SOLOMON Sex: F : 1965 Age: 55yDISPOSITION / DISCHARGE Report was given to a nurse via a phone call. Report included information regarding patient's care, treatment and condition including: recent changes, current vital signs and critical labs. Report included treatment information regarding medications given or pending; type and amount of IV fluids and medications infusing. All questions were answered. Report was acknowledged. --22:00 08/05/20 Joao Carmona R.N. 22:00 1 . BP: 97/52. MAP: 67. HR: 87. RR: 22. O2 saturation: 100% at 2 liters/minute. Temp: deferred. Pain level now: 0/10. --22:01 08/05/20 Joao Carmona R.N. Departure time: 22:10 08/05/2020. ( Care transferred to Cecilia FLORES). --22:19 08/05/20 Joao Carmona R.N. Departure time: 22:10 08/05/2020. --22:23 08/05/20 Joao Carmona R.N.Locked/Released at 08/05/2020 22:23 by Joao Carmona R.N. Name Value Range Interpretation Code Description Data Maura rce(s) Supporting Document(s) ID Date Data Source [id number] 08/05/2020 08:23:00 PM EDT [facility] 1 Clinical Report - Physicians/Mid Levels [facility] Emergency Department [address] [place] [address] Phone #: ext- [phone] 08/05/2020 20:20 Patient: CHANTALE SOLOMON Sex: F : 1965 Age: 55y Arrived- By private vehicle. Historian- patient. Disposition decision: 21:23 08/05/2020.HISTORY OF PRESENT ILLNESS Chief Complaint: CHEST PAIN and DISCOMFORT. It is described as tightness and it is described as located in the central chest area. This started just prior to arrival and is still present. No nausea, vomiting, difficulty breathing or diaphoresis. No additional chest pain. (Pt presents for evalution of her palpitations and her mild chest discomfort. pt states it just started prior to her arrival. she is on a blood thinner due to her hx of PEs diagnosed 2 years ago. she has active lung cancer.). Similar symptoms previously. None. Recent medical care: Not recently seen/assessed.REVIEW OF SYSTEMSNo fever, chills, cough or pedal edema or edema. No calf pain, fainting episodes, headache or sore throator throat. No blurred v ision, abdominal pain or pain or black stools or stools. No difficulty with urinationor urination or skin rash or rash. No bloody stools or stools, chills, fatigue or fever. No double vision, earpain, nasal congestion, cough or difficulty breathing. No constipation, diarrhea, nausea, vomiting orhematuria. No joint pain, headache, seizure or easy bruising. The patient has had chest pain andpalpitations.PAST HISTORYSee nurses notes. Problems: Cancer [Active]. Intervertebral Disc Disease. Pulmonary Embolism. Heart Disease. Additional Surgeries: Appendectomy. Back Surgery. Dilatation Curettage. Foot surgery. Heel spur. Right heel spur. Septoplasty. 2 Clinical Report - Physicians/Mid Levels [facility] Emergency Department [address] [place] [address] Phone #: ext- [phone] 08/05/2020 20:20 Patient: CHANTALE SOLOMON Sex: F : 1965 Age: 55y Septoplasty. Tonsillectomy. Tubal Ligation. Medications: Btstolic. dilTIAZem HCl Oral. Pantoprazole Sodium Oral. Pharmacy [facility]. Spiriva HandiHaler Inhalation. Symbicort Inhalation. Tylenol Oral. Xarelto Oral. Allergies: Penicillins. Seafood.SOCIAL HISTORYNo drug use.ADDITIONAL NOTESThe nursing notes have been reviewed.PHYSICAL EXAMVital Signs: 08/05/2020 22:20 Temp: 97.8 F.08/05/2020 22:20 Pain level now: 0.08/05/2020 22:19 BP: 0.08/05/2020 22:00 BP: 97/52. MAP: 67. HR: 87. RR: 22. O2 saturation: 100% at 2 liters/minute. Pain levelnow: 0.08/05/2020 21:52 BP: 111/82. MAP: 91. HR: 77. RR: 20. O2 saturation: 100%. Pain level now: 0.08/05/2020 21:32 BP: 107/74. MAP: 85. HR: 97. RR: 19. O2 saturation: 100% at 2 liters/minute. Pain levelnow: 0.08/05/2020 21:28 BP: 110/83. MAP: 92. HR: 145. RR: 25. O2 saturation: 100% at 2 liters/minute.08/05/2020 21:18 BP: 124/75. MAP: 91. HR: 149. RR: 23. O2 saturation: 100%. Pain level now: 0.08/05/2020 20:41 BP: 107/88. MAP: 94. HR: 108. RR: 24. O2 saturation: 100% at 2 liters/minute.08/05/2020 20:39 BP: 97/73. MAP: 81. HR: 82. RR: 19. O2 saturation: 100% at 2 liters/minute.08/05/2020 20:22 BP: 135/97. MAP: 109. HR: 149. RR: 24. O2 saturation: 100% at 2 liters/minute. Havebeen reviewed and appear to be correct. Blood pressure normal. Tachycardic. Respiratory rate normal.Temperature normal. Oxygen saturation normal.Appearance: Alert. Oriented X3. No acute distress.Eyes: Pupils equal, round and reactive to light. Eyes normal inspection.ENT: Nose normal.Neck: Normal inspection. Neck supple.CVS: Tachycardia. Pulses normal. 3 Clinical Report - Physicians/Mid Levels [facility] Emergency Department [address] [place] [address] Phone #: ext- [phone] 08/05/2020 20:20 Patient: CHANTALE SOLOMON Sex: F : 1965 Age: 55yRespiratory: No respiratory distress. Painless inspiration. Expiratory m ild bilateral wheezes present.Chest nontender.Abdomen: Soft and nontender. Bowel sounds normal.Back: Normal external inspection. No CVA tenderness.Skin: Skin warm and dry. Normal skin color. Normal skin turgor.Extremities: Extremities exhibit normal ROM. No lower extremity edema.Neuro: Oriented X 3. No motor deficit. No sensory deficit.LABS, X-RAYS, AND EKGLaboratory Tests:CBC w Diff: (SARAH: 08/05/2020 20:25) ( MsgRcvd 08/05/2020 21:02) Final results Test Result Flag Units (Reference) CBC W/AUTOMATED DIFF COMPLETE BLOOD COUNT WBC 3.2 L 10/uL (4.2 - 11.0) RBC 2.66 L 10/uL (4.20 - 5.40) HEMOGLOBIN 10.1 L g/dL (12.0 - 16.0) HEMATOCRIT 28.9 L % (37.0 - 47.0) MCV 108.6 H fL (81.0 - 101) MCH 38.0 H pg (27.0 - 34.0) MCHC 34.9 g/dL (31.0 - 36.0) RDW 13.6 % (11.5 - 14.5) PLATELETS 47 L 10/uL (150 - 450) MPV 10.0 fL (7.4 - 10.4) NEUT 34.4 L % (37.0 - 80.0) LYMPH 22.0 L % ( 25.0 - 40.0) MONO 36.8 H % (3.0 - 8.0) EOS 5.9 % (0.0 - 7.0) BASO 0.6 % (0.0 - 2.5) %IG 0.3 H % (0.0 - 0.0) %NRBC 0.0 % (0.0 - 0.0) #NEUT 1.11 L 10/uL (2.00 - 6.90) #LYMPH 0.71 10/uL (0.60 - 3.40) #MONO 1.19 H 10/uL (0.00 - 0.90) #EOS 0.19 10/uL (0.00 - 0.70) #BASO 0.02 10/uL (0.00 - 0.20) #IG 0.01 10/uL (0.00 - 0.10) #NRBC 0.00 10/uL (0.00 - 0.00) MANUAL DIFF SEE BELOW SEGS 36 L % (37 - 80) %LYMPH 38 % (25 - 40) %MONO 21 H % (3 - 8) %EOS 4 % (0 - 7) %BASO 1 % (0 - 2) RBC MORPH SEE BELOW ANISO 1+ A (NORMAL: NONE MACRO 2+ A (NORMAL: NONE HYPO 1+ A (NORMAL: NONE { SICKLE CELL (NORMAL: NONE SEEN ) PLT EST DECREASED A (NORMAL: SHAUNA COMMENT: __ 4 Clinical Report - Physicians/[facility] Emergency Department [address] [place] [address] Phone #: ext- [phone] 08/05/2020 20:20 Patient: CHANTALE SOLOMON Sex: F : 1965 Age: 55y Troponin-T: (SARAH: 08/05/2020 20:50) ( MsgRcvd 08/05/2020 21:27) Final results Test R esult Flag Units (Reference) TROPONIN T <0.01 NG/ML (0.00 - 0.10) TROPONIN T0.1 ng/ml Recommended as the clinical threshold value Kathie Maxwell.PROGRESS AND PROCEDURESCourse of Care: Pt presents to the ED for evaluation of her palpitations. she was noted to be in afib withrvr. she was given 20mg of cardizem iv. her heart rate slowed down then she went back into the 140s.pt was started on a cardizem drip. dr. alvarez came in to admit the patient. he recommended [id number] iv. labs reviewed. her magnesium was slightly low. i gave pt 2gm of magnesium. her trop wasunremarkable. pt was admitted to Dr. Alvarez's service. cxr shows no acute findings. Critical care performed. Time is exclusive of separately billable procedures. Time includes: direct patient care, patient reassessment, interpretation of data (laboratory data), review of patient's medical records, medical consultation and documentat ion of patient care. Patient/family counseled. Disposition: Admitted. Condition: good and stable. Admit decision based on need for further evaluation, additional testing, monitoring, telemetry and IV therapy and hydration.CLINICAL IMPRESSION Atrial fibrillation with uncontrolled rate.(Electronically signed by Shauna Junior MD 08/06/2020 00:32) Name Value Range Interpretation Code Description Data Maura rce(s) Supporting Document(s) ID Date Data Source [id number] 08/05/2020 08:23:00 PM EDT [facility] CHANTALE Butler VisitID: [id number] Date: 21:33MedicationReconciliation request faxed to [employer] @ [phone]; Faxed overview to [facility] @ [phone](Electronically signed by Benjamín Shore - 08/05/2020 21:33) Name Value Range Interpretation Code Description Data Maura rce(s) Supporting Document(s) ID Date Data Source [id number] 08/05/2020 10:14:00 PM EDT [facility] Name Value Range Interpretation Code Description Data Maura rce(s) Supporting Document(s) BNP 1159 PG/ML 0 - [address] [facility] willy ID Date Data Source [id number] 08/05/2020 10:14:00 PM EDT [facility] Name Value Range Interpretation Code Description Data Maura rce(s) Supporting Document(s) Thyrotropin [Units/volume] in Serum or Plasma by Detec tion limit <= 0.05 mIU/L 3.01 uIU/mL 0.47 - 5.01 [facility] ID Date Data Source [id number] 08/05/2020 09:41:00 PM EDT [facility] Name Value Range Interpretation Code Description Data Maura rce(s) Supporting Document(s) COMPREHENSIVE METABOLIC PANEL [facility] COMPREHENSIVE METABOLIC PANEL Sodium [Moles/volume] in Serum or Plasma 132 mEq/L 134 - 153 L [facility] Potassium [Moles/volume] in Serum or Plasma 3.6 mEq/L 3.6 - 5.0 [facility] Chloride [Moles/volume] in Serum or Plasma 94 mEq/L 98 - 107 L [facility] Carbon dioxide, total [Moles/volume] in Serum or Plasma 24 MEQ/L 22 - 30 [facility] Glucose [Mass/volume] in Serum or Plasma 119 MG/DL 65 - 110 H [facility] BUN 11 MG/DL 7 - 21 [facility] al Creatinine [Mass/volume] in Serum or Plasma 1.3 MG/DL 0.7 - 1.5 [facility] BUN/CREAT 8 8 - 27 [facility] al Protein [Mass/volume] in Serum or Plasma 6.9 G/DL 6.3 - 8.2 [facility] Albumin [Mass/volume] in Serum or Plasma 3.5 G/DL 3.9 - 5.0 L [facility] Globulin [Mass/volume] in Serum by calculation 3.4 GM/DL 2.4 - 3.2 H [facility] A/G RATIO 1.0 0.8 - 2.0 [facility] Calcium [Mass/volume] in Serum or Plasma 8.1 MG/DL 8.4 - 10.2 L [facility] Bilirubin.total [Mass/volume] in Serum or Plasma 0.3 MG/DL 0.2 - 1.3 [facility] Alkaline phosphatase [Enzymatic activity/volume] in Serum or Plasma 129 U/L 38 - 126 H [facility] Aspartate aminotransferase [Enzymatic activity/volume] in Serum or Plasma 35 U/L 5 - 40 [facility] Alanine aminotransferase [Enzymatic activity/volume] in Seru m or Plasma 23 U/L 7 - 56 [facility] Anion gap 3 in Serum or Plasma 14.0 mmol/L 8.0 - 16.0 [facility] AGE [address] [facility] NON-AA GFR 45 mL/min [facility] willy AFR AMER GFR 55 mL/min [facility] Male GFR In terprentation 20-49 yrs >60 mL/min Normal 50-59 yrs >56 mL/min Normal 60-69 yrs >49 mL/min Normal 70-79yrs >42 mL/min Normal 80 and above >35 mL/min Normal Female GFR Interpretation 20-39 yrs >60 mL/min Normal 40-49 yrs >58 mL/min Normal 50-59 yrs >51 mL/min Normal 60-69 yrs >45 mL/min Normal 70-79 yrs >39 mL/min Normal 80 and above >32 mL/min Normal ID Date Data Source [id number] 08/05/2020 09:40:00 PM [facility] Name Value Range Interpretation Code Description Data Maura rce(s) Supporting Document(s) Magnesium [Mass/volume] in Serum or Plasma 1.2 MG/DL 1.7 - 2.2 L [facility] ID Date Data Source [id number] 08/05/2020 09:27:00 PM [facility] Name Value Range Interpretation Code Description Data Maura rce(s) Supporting Document(s) TROPONIN T <0.01 NG/ML 0.00 - 0.10 [facility] ospital TROPONIN T0.1 ng/ml Recommended as the c linical threshold value forTroponin T. ID Date Data Source [id number] 08/05/2020 09:01:00 PM [facility] Name Value Range Interpretation Code Description Data Maura rce(s) Supporting Document(s) CBC W/AUTOMATED DIFF [facility] COMPLETE BLOOD COUNT Leukocytes [#/volume] in Blood by Automated count 3.2 10^3/uL 4.2 - 1 1.0 L [facility] Erythrocytes [#/volume] in Blood by Automated count 2.66 10^6/uL 4. 20 - 5.40 L [facility] Hemoglobin [Mass/volume] in Blood 10.1 g/dL 12.0 - 16.0 L [facility] Hematocrit [Volume Fraction] of Blood by Automated count 28.9 % 3 7.0 - 47.0 L [facility] Erythrocyte mean corpuscular volume [Entitic volume] b y Automated count 108.6 fL 81.0 - 101 H [facility] Erythrocyte mean corpuscular hemoglobin [Entitic mass] by Automated count 38.0 pg 27.0 - 34.0 H [facility] Erythrocyte mean corpuscular hemoglobin concentration [Mass/volume] by Automated count 34.9 g/dL 31.0 - 36.0 [facility] Erythrocyte distribution width [Ratio] by Automated count 13.6 % 11.5 - 14.5 [facility] Platelets [#/volume] in Blood by Automated count 47 10^3/uL 150 - 450 L [facility] Platelet mean volume [Entitic volume] in Blood by Automated count 10.0 fL 7.4 - 10.4 [facility] Neutrophils/100 leukocytes in Blood by Automated count 34.4 % 37. 0 - 80.0 L [facility] Lymphocytes/100 leukocytes in Blood by Manual count 22.0 % 25.0 - 40.0 L [facility] Monocytes/100 leukocytes in Blood by Automated count 36.8 % 3.0 - 8.0 H [facility] Eosinophils/100 leukocytes in Blood by Automated count 5.9 % 0.0 - 7.0 [facility] 0.6 %IG 0.3 % 0.0 - 0.0 H [facility] al %NRBC 0.0 % 0.0 - 0.0 [facility] al Neutrophils [#/volume] in Blood by Automated count 1.11 10^3/uL 2.00 - 6.90 L [facility] Lymphocytes [#/volume] in Blood by Automated count 0.71 10^3/uL 0.60 - 3.40 [facility] Monocytes [#/volume] in Blood by Automated count 1.19 10^3/uL 0.00 - 0.90 H [facility] Eosinophils [#/volume] in Blood by Automated count 0.19 10^3/uL 0.00 - 0.70 [facility] Basophils [#/volume] in Blood by Automated count 0.02 10^3/uL 0.00 - 0.20 [facility] #IG 0.01 10^3/uL 0.00 - 0.10 [facility] ospital #NRBC 0.00 10^3/uL 0.00 - 0.00 [facility] MANUAL DIFF SEE BELOW [facility] ital Segmented neutrophils/100 leukocytes in Blood by Manual count 36 % 37 - [address] [facility] %LYMPH 38 % 25 - 40 [facility] %MONO 21 % 3 - [address] [facility] %EOS 4 % 0 - 7 [facility] 1 RBC MOR[address] SEE BELOW [facility] Anisocytosis [Presence] in Blood by Light microscopy 1+ SHAUNA L: NONE SEEN A [facility] Macrocytes [Presence] in Blood by Light microscopy 2+ NORMAL: NONE SEEN A [facility] HYPO 1+ NORMAL: NONE SEEN A [facility] { SICKLE CELL (NORMAL: NONE SEEN ) Platelet adequacy [Presence] in Blood by Light microscopy DE CREASED NORMAL: NORMAL A [facility] COMMENT: ID Date Data Source [id number] 08/02/2020 01:04:00 PM EDT [facility] [address] [place] [address] PHONE: [phone] FAX: [phone] Name .................. : JUANITO Barclayt Number.................. : [id number] ROOM. ................. : Number ................... : [id number] Stay type ............. : O/P Discharge Date......... ... : 08/01/20 Admit Date ......... : 08/01/20 Admit Phys .................... : MILVIA MARIA DEL CARMEN Date of ....... : 1965 Family Phys ................... : REGINE ChatLingual Phone .................. : [phone] Age ................................ : 55 Film# .................. .:[id number] Sex ................................. : F Unsigned transcriptions are preliminary reports and do not represent a medical or legal document TIBULA/FIBULA - BILATERAL [id number] COMPLETE:08/01/20 11:39 [facility] [id number] (REASON FOR PROCESS: LEG PAIN BILATERAL TIBIA AND FIBULA, 08/01/20: INDICATION: Leg pain. FINDINGS: There is normal alignment and position of the bones of the lower legs. No bony abnormalities are identified. IMPRESSION: Unremarkable lower legs. Examination dictated by JOHN Klein. Examination was reviewed with Everett Jimenez MD, radiologist at the time of this dictation. Electronically Reviewed and Signed By Everett Jimenez MD , 08/02/20 13:04, KG Transcribe Initials: SSR, Transcribe Date: 08/01/20 14:16, Dictation Date: Copy for: MILVIA PIZANO via fax Copy for: [address] [place] [address] REC Page 1 of 1 Name Value Range Interpretation Code Description Data Maura rce(s) Supporting Document(s) ID Date Data Source [id number] 08/02/2020 01:04:00 PM EDT [facility] [address] [place] [address] PHONE: [phone] FAX: [phone] Name .................. : JUANITO Daniels Acct Number.................. : [id number] ROOM. ................. : Number ................... : [id number] Stay type ............. : O/P Discharge Date......... ... : 08/01/20 Admit Date ......... : 08/01/20 Admit Phys .................... : MILVIA MARIA DEL CARMEN Date of ....... : 1965 Family Phys ................... : SEQUEIRA Phone .................. : [phone] Age ................................ : 55 Film# .................. .:[id number] Sex ................................. : F Unsigned transcriptions are preliminary reports and do not represent a medical or legal document CHEST 2 VIEWS 37176 COMPLETE:08/01/20 11:39 [facility] [address] (REASON FOR CHEST: COUGH TWO VIEW CHEST, 08/01/20: Comparison was made to a prior study from 01/08/2020. INDICATION: Shortness of breath. FINDINGS: There is opacification of the left upper lung field, unchanged as compared to previous studies. A Port-a-Cath is present with a right hemithorax with the tip in the SVC. Cardiac silhouette appears unremarkable. Blunting of the right costophrenic angle remains stable. IMPRESSION: Chronic changes with no acute findings and no significant change. Examination dictated by JOHN Klein. Examination was reviewed with Everett Jimenez MD, radiologist at the time of this dictation. Electronically Reviewed and Signed By Everett Jimenez MD , 08/02/20 13:04, KGG Transcribe Initials: [facility], Transcribe Date: 08/01/20 14:13, Dictation Date: Copy for: MILVIA PIZANO via fax Copy for: [address] [place] [address] REC Page 1 of 1 Name Value Range Interpretation Code Description Data Maura rce(s) Supporting Document(s) ID Date Data Source [id number] 05/03/2020 01:04:00 PM EDT [facility] Patient Name: Chantale Solomon : 1965 Sex: F Pt Unit #: [id number] Location:[facility] Provider: Visit Date/Time: 05/03/20 Primary Insurance: BC/BS [employer] Secondary Insurance: Self Pay Intake Vital Signs 05/03/20 13:04 Current Height 5 ft Current Weight 140 lb Weight Measurement Method Standing Scale BMI 27.3 BP 120/60 Blood Pressure Location Lt brachial Position Sitting Respiration 18 Pulse 84 Pulse Strength Normal Pulse Source Pulse Oximeter Pulse Oximetry (%) 98 Oxygen Delivery Method nasal canula Oxygen Flow Rate 2 Intake Visit Reasons: Annual Physical Nurse Note: pt is here today for annual pe and recheck of pneumonia Is patient in pain?: Yes Allergies Penicillins Allergy (Unverified 01/17/20 09:43) Rash sea food Allergy (Severe, Uncoded 12/13/19 12:22) Anaphylaxis Medications budesonide-formoterol 80-4.5 mcg/actuation (Symbicort) 2 puffs inhalation BID folic acid 1 mg PO QDAY furosemide 20 mg PO .weekly magnesium oxide 500 mg PO QDAY nebivolol (Bystolic) 5 mg PO QDAY pantoprazole 40 mg PO QDAY rivaroxaban (Xarelto) 20 mg PO QDAY tiotropium bromide 1.25 mcg/actuation (Spiriva Respimat) 2 puffs inhalation QDAY Fall Risk History of falls: No Ambulatory Aid:: None Gait/Transferring:: Normal Medications:: Diuretics and Antihypertensives PHQ-2/9 Over the last 2 weeks, how often have you been bothered by any of the following problems? 1. Little interest or pleasure in doing things: several days 2. Feeling down, depressed, or hopeless: several days Total score: 2 3. Trouble falling or staying asleep, or sleeping too much: several days 4. Feeling tired or having little energy: several days 5. Poor appetite or overeating: several days 6. Feeling bad about yourself - or that you are a failure or have let yourself and your family down:several days 7. Trouble concentrating on things, such as reading the newspaper or watching television: several days 8. Moving or speaking so slowly that other people could have noticed? - Or the opposite - being so fidgety or restless that you have been moving around a lot more than usual: not at all 9. Thoughts that you would be better off or of hurting yourself in some way: not at all Total score: 7 If you checked off any problems, how difficult have these problems made it for you to do your work, take care of things at home, or get along with other people?: somewhat difficult Source: Developed by Drs. Jose Miguel, Clara Bernabe, Pablo Clement and colleagues, with an educational chance from [employer]. Coronavirus Screening Screening Have you traveled outside of [facility] or [facility] in the last 14 days.: No Has patient experienced coronavirus symptoms: No PFSH Medical History Cancer GERD (gastroesophageal reflux disease) History of pulmonary embolus (PE) Surgical History H/O dilation and curettage H/O nasal septoplasty H/O spinal fusion H/O tubal ligation History of appendectomy Hx of tonsillectomy Social History Does the Patient have a Healthcare Proxy: Yes ( JOSE) Does Patient have a DNR?: No Does Patient have a Living Will?: No household members: spouse and other details: 2 highest education level completed: high school graduate service: No 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 FEELING WELL NOW BUT HAS HAD PNEUMONIA X 2 OVER WINTER. NEEDS PANTOPRAZOLE REFILLED Review of Systems Const All systems reviewed are unremarkable except as noted in HPI and below Reports system reviewed and no additional complaints, except as documented Eyes Reports system reviewed and no additional complaints, except as documented ENT Reports system reviewed and no additional complaints, except as documented Card Reports system reviewed and no additional complaints, except as documented and Reports dyspnea on exertion Resp Reports system reviewed and no additional complaints, except as documented and Reports dyspnea on exertion Details: AND AFTER TREATMENT FOR LUNG CANCER. INCREASED O2 TO 3 LPM NEEDED. GI Reports system reviewed and no additional complaints, except as documented and Reports diarrhea Genitourinary: Reports system reviewed and no additional complaints, except as documented Musc Reports system reviewed and no additional complaints, except as documented Details: BONE PAIN FROM CHEMO Skin/Breast Reports system reviewed and no additional complaints, except as documented Neuro Reports system reviewed and no additional complaints, except as documented Psych Reports system reviewed and no additional complaints, exce pt as documented, Reports anxiety and Reports depression Endo Reports system reviewed and no additional complaints, except as documented Valente/Lymph Reports system reviewed and no additional complaints, except as documented Aller/Immun Reports system reviewed and no additional complaints, except as documented Exam Const General: cooperative and comfortable Nutritional Appearance: overweight Orientation: alert and oriented x3 HENMT Head: normal to inspection Ears: hearing grossly normal bilaterally Throat: posterior oropharynx normal Eyes General: appearance normal, both eyes and all related structures Alignment and Position: alignment normal Periorbital: periorbital findings normal Eyelids: eyelids normal Conjunctivae: conjunctivae normal Sclera: sclerae normal Cornea: corneas normal Pupils: PERRL EOM: EOM intact bilaterally Other: SEE'S EYE DOCTOR EVERY 6 MONTHS Neck Neck: normal visual inspection Neck mass: No Thyroid: thyroid normal Lymphatic: no lymphadenopath y noted Resp Effort Inspection: normal respiratory effort Auscultation: breath sounds absent (UPPER LOBE, HOWEVER DISTANT BREATH SOUNDS ARE AUDIBLE IN LLL.) on th left Cardio Rate: regular rate Rhythm: regular rhythm GI Inspection: Yes normal to inspection Palpation: soft Percussion: normal to percussion Auscultation: normal bowel sounds General: No CVA tenderness Musc Cervical Spine: normal cervical lordosis Thoracic/Lumbar Spine: thoracic and lumbar spine normal to inspection Skin Lesions: no lesions Rashes: no rashes Neuro General: patient alert and patient oriented x3 Cranial Nerves: CN's II-XII intact bilaterally Extrem General: normal to inspection Psych Appearance: grossly normal Mental Status: mental status grossly normal Speech and Movement: speech and movement normal Mood: congruent mood Affect: normal affect Attitude: cooperative Thought Process: normal Thought Content: normal Insight: insight good Judgment: judgment good Quality Reporting Dep ression/Bipolar (159/160/161/169/177) Total score: 7 Assessment Plan Assessment Plan (1) Encounter for annual health examination: Code(s): Z00.00 - Encounter for general adult medical examination without abnormal findings (2) Lung cancer: Status: Acute Code(s): C34.90 - Malignant neoplasm of unspecified part of unspecified bronchus or lung SNOMED Code(s): 450163946 Category: Medical (3) HTN (hypertension), benign: Status: Acute Code(s): I10 - Essential (primary) hypertension SNOMED Code(s): 65362150 Category: Medical Orders Other Medications: New: pantoprazole 40 mg PO QDAY 90 tabs 3RF Discontinued: pantoprazole Discontinued Reason: None 40 mg PO QDAY silver sulfadiazine 1% (Silvadene) apply a 1.5 mm thickness Discontinued Reason: MD Order 1 applic topical BID 50 grams 0RF metoprolol succinate ER Discontinued Reason: MD Order 25 mg PO QDAY 30 t abs 2RF Other Orders: Orders: 3D DIG MAMMO SCREEN BILAT Today Z12.31 Electronically Signed By: <Electronically signed by Gail Reyes NP> Date/Time Signed: 05/03/20 1403 Name Value Range Interpretation Code Description Data Maura rce(s) Supporting Document(s) ID Date Data Source [id number] 04/27/2020 12:22:00 PM EDT [facility] [address] [place] [address] PHONE: [phone] FAX: [phone] Name .................. : JUANITO Daniels Acct Number.................. : [id number] ROOM. ................. : MR Number ................... : [id number] Stay type ............. : O/P Discharge Date......... ... : 04/26/20 Admit Date ......... : 04/26/20 Admit Phys .................... : DEBLASIO D Date of ....... : 1965 Family Phys ................... : SEQUEIRA Phone .................. : [phone] Age ................................ : 54 Film# .................. .:[id number] Sex ................................. : F Unsigned transcriptions are preliminary reports and do not represent a medical or legal document MRI LUMBAR SPINE W&W/O CONTRA [id number] COMPLETE:04/26/20 12:05 [facility] [id number] (SPINE PROC REASON: LUNG CA, LOW BACK PAIN MRI OF THE LUMBAR SPINE WITH AND WITHOUT CONTRAST: FINDINGS: Subacute to chronic compression fracture deformities are noted in L1 and L4 vertebral body with loss of height of 60% in L1 and 50% in L4 vertebral body. Additional evidence of fracture is not seen. In the L5 vertebral body, there is a lesion seen suspicious for metastatic deposit that has maximal diameter of 0.9 cm. Additional definitive evidence of destructive osseous lesion is not seen. Mild degenerative spondylosis is seen. L5-S1 intervertebral disc space is unremarkable. L4-5: Spondylosis and minimal disc bulging are noted without central canal stenosis or lateral recess narrowing. L3-4: Spondylosis and disc bulging are noted with mild lateral recess and neural foraminal narrowing. L2-3 and L1-2 intervertebral disc space is unremarkable. T12-L1: Mild central canal stenosis and mild lateral recess narrowings are noted due to slight retropulsion superior aspect of L1 vertebral body due to compression fracture deformity. Distal spinal cord pathology is not seen. The paraspinal soft tissues are unremarkable. IMPRESSION: Lesion L5 vertebral body with maximal diameter of 0.9 cm suspicious for metastatic deposit. Compression fracture deformities L1 and L4 vertebral bodies which are not acute with moderate loss of height, as described above. Page 1 of 2 [place] [address] PHONE: [phone] FAX: [phone] Name .................. : JUANITO Daniels Acct Number .................. : [id number] ROOM. ................. : Number ................... : [id number] Stay type ............. : O/P Discharge Date......... ... : 04/26/20 Admit Date ......... : 04/26/20 Admit Phys .................... : QUINTON Bean Date of ....... : 1965 Family Phys ................... : SEQUEIRA Phone .................. : [phone] Age ................................ : 54 Film# .................. .:[id number] Sex ................................. : F Unsigned transcriptions are preliminary reports and do not represent a medical or legal document MRI LUMBAR SPINE W&W/O CONTRA [id number] COMPLETE:04/26/20 12:05 [facility] [id number] (SPINE PROC REASON: LUNG CA, LOW BACK PAIN L1 compression fracture deformities result in slight retropulsion into the spinal canal resulting in mild central canal stenosis and mild lateral recess n arrowing. Mild disc bulging at L4-5 and L3-4, as above. Distal spinal cord pathology not seen. Electronically Reviewed and Signed By Everett Jimenez MD , 04/27/20 12:23, KG Transcribe Initials: REYES , Transcribe Date: 04/26/20 19:17, Dictation Date: Copy for: QUINTON GOMEZ via fax Copy for: [address] [place] [address] REC Page 2 of 2 Name Value Range Interpretation Code Description Data Maura rce(s) Supporting Document(s) ID Date Data Source [id number] 04/27/2020 12:22:00 [place] [address] PHONE: [phone] FAX: [phone] Name .................. : JUANITO ROMAN Jeremiah Acct Number.................. : [id number] ROOM. ................. : Number ................... : [id number] Stay type ............. : O/P Discharge Date......... ... : 04/26/20 Admit Date ......... : 04/26/20 Admit Phys .................... : LEVARMONIKA Bean Date of ....... : 1965 Family Phys ................... : SEQUEIRA Phone .................. : [phone] Age ................................ : 54 Film# .................. .:[id number] Sex ................................. : F Unsigned transcriptions are preliminary reports and do not represent a medical or legal document MRI CERV SPINE W&W/O CONTRAST [id number] COMPLETE:04/26/20 12:05 [facility] [address]6317 (SPINE PROC REASON: LUNG CA, LOW BACK PAIN MRI OF THE CERVICAL SPINE WITH AND WITHOUT CONTRAST: FINDINGS: Acute fracture, destructive osseous lesion or dislocation is not seen. In the C6 vertebral body, there is a lesion that is hyperintense on T1 and T2-weighted imaging, consistent with benign osseous hemangioma with maximal dimensions of 1.0 x 0.8 cm. At C3-4, a tiny central disc protrusion is seen which is not associated with central canal stenosis or lateral recess narrowing. C2-3, C4-5, C5-6, C6- 7, C7-T1 and T1-T2 intervertebral disc spaces are unremarkable. Spinal cord pathology is not seen. Intracranial contents are unremarkable. IMPRESSION: Benign osseous hemangioma noted in the C6 vertebral body. A tiny central disc protrusion at C3-4 not associated with central canal stenosis, lateral recess narrowing or spinal cord content. Otherwise, unremarkable examination. Electronically Reviewed and Signed By Everett Jimenez MD , 04/27/20 12:22, KGG Transcribe Initials: DZ , Transcribe Date: 04/26/20 19:44, Dictation Date: Copy for: QUINTON GOMEZ via fax Copy for: 710 MED REC Page 1 of 1 Name Value Range Interpretation Code Description Data Maura rce(s) Supporting Document(s) ID Date Data Source [id number] 03/13/2020 02:19:00 PM EDT [facility] ([facility], ) Name Value Range Interpretation Code Description Data Maura rce(s) Supporting Document(s) PDFReport Laboratory test result [facility] ([facility], ) FVC-Pre 1.00 L [facility] ([facility]) FVC-%Pred-Pre 33 L [facility] ([facility]) FVC-Pred 2.98 L [facility] ([facility]) Fev1-Pre 0.83 L [facility] ([facility]) FVC-LLN 2.37 L [facility] ([facility]) Fev1-Pred 2.34 L [facility] ([facility]) Fev1-LLN 1.83 L [facility] ([facility]) Fev1-%Pred-Pre 35 L [facility] ([facility]) Fev6-Pre 1.00 L [facility] ([facility]) Fev6-Pred 2.89 L [facility] ([facility]) Fev6-%Pred-Pre 34 L [facility] ([facility]) Fev6-LLN 2.29 L [facility] ([facility]) Rxj9yem-Unyr 79 % [facility] ([facility]) Xsp8kpu-Igg 82 % [facility] ([facility]) Mla7fuy-%Pred-Pre 103 % [facility] ([facility]) Zpp2ucm-YYT 70 % [facility] ([facility]) FEFMax-Pred 5.99 L/E/sec [facility] ([facility], ) Utx8hin-Wcy 100 % [facility] ([facility]) Vzf2bhv-%Pred-Pre 103 % [facility] ([facility]) Gem9upn-Xoww 97 % [facility] ([facility]) FEFMax-Pre 3.45 L/E/sec [facility] ([facility]) FEFMax-%Pred-Pre 57 L/E/sec [facility] ([facility]) FEFMax-LLN 4.48 L/E/sec [facility] ([facility]) Lzm7745-Kif 0.84 L/E/sec [facility] ([facility]) Ekk5812-Mtqw 2.38 L/E/sec [facility] ([facility]) Xzd6696-%Pred-Pre 35 L/E/sec [facility] ([facility]) Ryp4811-QWC 1.29 L/E/sec [facility] ([facility]) ExpTime-Pre 5.99 sec [facility] ([facility]) Gqs8mao6-Vnsp 82 % [facility] ([facility]) Mdc1qcx8-Bxv 82 % [facility] ([facility]) Vdv7ktk3-CTW 73 % [facility] ([facility]) Mbf4jfe0-%Pred-Pre 101 % [facility] ([facility]) ID Date Data Source [id number] 02/28/2020 01:50:00 PM EDT [facility] Patient Name: Chantale Solomon : 1965 Sex: F Pt Unit #: [id number] Location:[facility] Provider: Visit Date/Time: 02/28/20 Primary Insurance: BC/BS [employer] EM[employer]YE[employer] Secondary Insurance: Self Pay Intake Vital Signs 02/28/20 13:50 Current Height 5 ft Current Weight 191 lb Weight Measurement Method Standing Scale BMI 37.3 BP 110/80 Blood Pressure Location Lt brachial Position Sitting Respiration 18 Pulse 112 H Pulse Strength Normal Pulse Source Pulse Oximeter Temp 97.5 F L Temp Source Oral Pulse Oximetry (%) 100 Oxygen Delivery Method nasal canula Oxygen Flow Rate 2 Intake Visit Reasons: Pneumonia Nurse Note: pt was admitted last Friday to [facility] pt was dicharged after one week this past Friday pt was told to have pneumonia and was found to have pleural effusion pt was taken off ditalezam in hospital her HR has been high Is patient in pain?: Yes (lower back ) Pain scale (1-10): 6 Allergies Penicillins Allergy (Unverified 01/17/20 09:43) Rash sea food Allergy (Severe, Uncoded 12/13/19 12:22) Anaphylaxis Med ications budesonide-formoterol 80-4.5 mcg/actuation (Symbicort) 2 puffs inhalation BID folic acid 1 mg PO QDAY metoprolol succinate ER 25 mg PO QDAY pantoprazole 40 mg PO QDAY rivaroxaban (Xarelto) 20 mg PO QDAY silver sulfadiazine 1% (Silvadene) 1 applic topical BID tiotropium bromide 1.25 mcg/actuation (Spiriva Respimat) 2 puffs inhalation QDAY Coronavirus Screening Screening Have you traveled outside of [facility] or [facility] in the last 14 days.: No Has patient experienced coronavirus symptoms: No [facility] Social History Does the Patient have a Healthcare Proxy: Yes ( JOSE) Does Patient have a DNR?: No Does Patient have a Living Will?: No household members: spouse and other details: 2 highest education level completed: high school graduate service: No 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 WAS D/C'D FROM [facility] 02/26/2020 HEART RATE HAS BEEN RAPID SINCE D/C'D DILTIAZEM. STATES HOSPITALIST D/C'D [facility] WAS MAKING BP TOO LOW. NO RECORDS AVAILABLE YET. Review of Systems Const All systems reviewed are unremarkable except as noted in HPI and below Denies chills, Reports fatigue and Denies fever(s) ENT Reports system reviewed and no additional complaints, except as documented and Reports sinus pain Card Reports system reviewed and no additional complaints, except as documented Resp Reports system reviewed and no additional complaints, except as documented and Reports cough GI Reports system reviewed and no additional complaints, except as documented and Reports nausea Reports system reviewed and no additional complaints, except as documented Musc Reports system reviewed and no additional complaints, except as documented Skin/Breast Reports system reviewed and no additional complaints, except as documented Neuro Reports system reviewed and no additional complaints, except as documented Psych Reports system reviewed and no additional complaints, except as documented Endo Reports system reviewed and no additional complaints, except as documented and Reports fatigue Valente/Lymph Reports system reviewed and no additional complaints, except as documented Aller/Immun Reports system reviewed and no additional complaints, except as documented Exam Const General: cooperative and comfortable Nutritional Appearance: average body habitus Orientation: alert and oriented x3 HENMT Head: normal to inspection Ears: TM's normal bilaterally Neck Neck: normal visual inspection Neck mass: No Thyroid: thyroid normal Lymphatic: no lymphadenopathy noted Resp Effort Inspection: normal respiratory effort Auscultation: diminished lung sounds on the right Cardio Rate: tachycardic Rhythm: regular rhythm GI Inspection: Yes normal to inspection Palpation: soft Percussion: normal to percussion Auscultation: normal bowel sounds General: No CVA tenderness Musc Cervical Spine: normal cervical lordosis Thor acic/Lumbar Spine: thoracic and lumbar spine normal to inspection Skin Lesions: no lesions Rashes: no rashes Neuro General: patient alert and patient oriented x3 Cranial Nerves: CN's II-XII intact bilaterally Extrem General: normal to inspection Psych Appearance: grossly normal Mental Status: mental status grossly normal Speech and Movement: speech and movement normal Mood: congruent mood Affect: normal affect Attitude: cooperative Thought Process: normal Thought Content: normal Insight: insight good Judgment: judgment good Assessment Plan Assessment Plan (1) Tachycardia: Status: Acute Code(s): R00.0 - Tachycardia, unspecified SNOMED Code(s): 6245175 Category: Medical Plan - Gail Regine: CARDIOLOGY REFERRAL RTC 1 MONTH Orders: Referrals: Cardiology Referral (2) Lung cancer: Status: Acute Code(s): C34.90 - Malignant neoplasm of unspecified part of unspecified bronchus or lung SNOMED Code(s): 323886074 Category: Medical (3) Pneumonia: Status: Acute Code(s): J18.9 - Pneumonia, unspecified organism SNOMED Code(s): 412785066 Category: Medical Orders Other Medications: New: metoprolol succinate ER 25 mg PO QDAY 30 tabs 2RF Discontinued: diltiazem HCl Discontinued Reason: Order 120 mg PO QAM 90 caps 3RF Other Orders: Orders: CMP Today Z09 CBC W AUTO DIFF Today Z09 Electronically Signed By: <Electronically signed by Gail Reyes > Date/Time Signed: 02/28/20 1433 Name Value Range Interpretation Code Description Data Maura rce(s) Supporting Document(s) ID Date Data Source [id number] 02/28/2020 11:38:00 AM EDT [facility] [address] [place] [address] PHONE: [phone] FAX: [phone] Name .................. : JUANITO Daniels Acct Number.................. : [id number] ROOM. ................. : 103-1 MR Number ................... : [id number] Stay type ............. : I/P Discharge Date......... ... : Admit Date ......... : 02/21/20 Admit Phys .................... : DOMENIC Date of ....... : 1965 Family Phys ................... : REGINE GAIL Phone .................. : [phone] Age ................................ : 54 Film# .................. .:[id number] Sex ................................. : F Unsigned transcriptions are preliminary reports and do not represent a medical or legal document CHEST 1 VIEW 09499 COMPLETE:02/24/20 17:42 [facility] [id number] (REASON FOR CHEST: SHORTNESS OF BREATH SINGL E VIEW OF THE CHEST, 02/24/20: Comparison is made to 02/22/20. FINDINGS: The patient is taking shallow inspiration. The heart size appears to be within normal limits. A stable large opacity/mass is seen at the left upper lobe. No confluent infiltrates have developed in the interim. No pleural effusion or pneumothorax is seen. There is a right-sided port catheter present with its tip at the level of the right atrium. Gonzalez rods are present at the thoracic spine as before. The bones are stable. IMPRESSION: Stable large opacity/mass at the left upper lobe. Otherwise, no acute findings and no significant change. Electronically Reviewed and Signed By Harjinder Culver MD , 02/28/20 11:38, TDS Transcribe Initials: SSR, Transcribe Date: 02/25/20 07:24, Dictation Date: Copy for: 710 MED REC DISCHARGED Page 1 of 1 Name Value Range Interpretation Code Description Data Maura rce(s) Supporting Document(s) ID Date Data Source [id number] 02/26/2020 07:42:00 AM EDT [facility] Name Value Range Interpretation Code Description Data Maura rce(s) Supporting Document(s) CBC W/AUTOMATED DIFF [facility] COMPLETE BLOOD COUNT Leukocytes [#/volume] in Blood by Automated count 9.7 10^3/uL 4.2 - 1 1.0 [facility] Erythrocytes [#/volume] in Blood by Automated count 2.65 10^6/uL 4. 20 - 5.40 L [facility] Hemoglobin [Mass/volume] in Blood 9.9 g/dL 12.0 - 16.0 L [facility] Hematocrit [Volume Fraction] of Blood by Automated count 29.7 % 3 7.0 - 47.0 L [facility] Erythrocyte mean corpuscular volume [Entitic volume] b y Automated count 112.1 fL 81.0 - 101 H [facility] Erythrocyte mean corpuscular hemoglobin [Entitic mass] by Automated count 37.4 pg 27.0 - 34.0 H [facility] Erythrocyte mean corpuscular hemoglobin concentration [Mass/volume] by Automated count 33.3 g/dL 31.0 - 36.0 [facility] Erythrocyte distribution width [Ratio] by Automated count 15.0 % 11.5 - 14.5 H [facility] Platelets [#/volume] in Blood by Automated count 56 10^3/uL 150 - 450 L [facility] Platelet mean volume [Entitic volume] in Blood by Automated count 12.0 fL 7.4 - 10.4 H [facility] Neutrophils/100 leukocytes in Blood by Automated count 76.8 % 37. 0 - 80.0 [facility] Lymphocytes/100 leukocytes in Blood by Manual count 8.1 % 25.0 - 40.0 L [facility] Monocytes/100 leukocytes in Blood by Automated count 11.1 % 3.0 - 8.0 H [facility] Eosinophils/100 leukocytes in Blood by Automated count 0.3 % 0.0 - 7.0 [facility] Basophils/100 leukocytes in Blood by Automated count 0.6 % 0.0 - 2.5 [facility] %IG 3.1 % 0.0 - 0.0 [facility] %NR[facility] 0.0 % 0.0 - 0.0 [facility] al Neutrophils [#/volume] in Blood by Automated count 7.48 10^3/uL 2.00 - 6.90 H [facility] Lymphocytes [#/volume] in Blood by Automated count 0.79 10^3/uL 0.60 - 3.40 [facility] Monocytes [#/volume] in Blood by Automated count 1.08 10^3/uL 0.00 - 0.90 H [facility] Eosinophils [#/volume] in Blood by Automated count 0.03 10^3/uL 0.00 - 0.70 [facility] Basophils [#/volume] in Blood by Automated count 0.06 10^3/uL 0.00 - 0.20 [facility] #IG 0.30 10^3/uL 0.00 - 0.[address] [facility] #NRBC 0.00 10^3/uL 0.00 - 0.00 [facility] MANUAL DIFF SEE BELOW [facility] Segmented neutrophils/100 leukocytes in Blood by Manual count 82 % 37 - 80 H [facility] %LYMPH 8 % 25 - [address] [facility] %MONO 10 % 3 - [address] [facility] RBC MORPH SEE BELOW [facility] Anisocytosis [Presence] in Blood by Light microscopy 1+ SHAUNA L: NONE SEEN A [facility] Macrocytes [Presence] in Blood by Light microscopy 1+ NORMAL: NONE SEEN A [facility] Poikilocytosis [Presence] in Blood by Light microscopy 1+ NOR MAL: NONE SEEN A [facility] { SICKLE CELL (NORMAL: NONE SEEN ) Platelet adequacy [Presence] in Blood by Light microscopy DE CREASED NORMAL: NORMAL A [facility] COMMENT: ID Date Data Source [id number] 02/26/2020 07:18:00 AM EDT [facility] Name Value Range Interpretation Code Description Data Maura rce(s) Supporting Document(s) BASIC METABOLIC PANEL [facility] BASIC METABOLIC PANEL Sodium [Moles/volume] in Serum or Plasma 141 mEq/L 134 - 153 [facility] Potassium [Moles/volume] in Serum or Plasma 4.2 mEq/L 3.6 - 5.0 [facility] Chloride [Moles/volume] in Serum or Plasma 95 mEq/L 98 - 107 L [facility] Carbon dioxide, total [Moles/volume] in Serum or Plasma 38 MEQ/L 22 - 30 H [facility] Glucose [Mass/volume] in Serum or Plasma 105 MG/DL 65 - 110 [facility] BUN 16 MG/DL 7 - 21 [facility] al Creatinine [Mass/volume] in Serum or Plasma 0.8 MG/DL 0.7 - 1.5 [facility] BUN/CREAT 20 8 - 27 [facility] Calcium [Mass/volume] in Serum or Plasma 10.1 MG/DL 8.4 - 10.2 [facility] Anion gap 3 in Serum or Plasma 8.0 mmol/L 8.0 - 16.0 [facility] AGE 54 yrs [facility] al AFR AMER GFR >60 mL/min [facility] Ho spital NON-AA GFR >60 mL/min [facility] ital Male GFR Inter prentation 20-49 yrs >60 mL/min Normal 50-59 yrs >56 mL/min Normal 60-69 yrs >49 mL/min Normal 70-79yrs >42 mL/min Normal 80 and above >35 mL/min Normal Female GFR Interpretation 20-39 yrs >60 mL/min Normal 40-49 yrs >58 mL/min Normal 50-59 yrs >51 mL/min Normal 60-69 yrs >45 mL/min Normal 70-79 yrs >39 mL/min Normal 80 and above >32 mL/min Normal ID Date Data Source [id number] 02/25/2020 12:09:00 PM EDT [facility] Name Value Range Interpretation Code Description Data Maura rce(s) Supporting Document(s) Hemoglobin [Mass/volume] in Blood 9.7 g/dL 12.0 - 16.0 L [facility] {CB] ID Date Data Source [id number] 02/25/2020 07:50:00 AM EDT [facility] Name Value Range Interpretation Code Description Data Maura rce(s) Supporting Document(s) CBC W/AUTOMATED DIFF [facility] COMPLETE BLOOD COUNT Leukocytes [#/volume] in Blood by Automated count 9.7 10^3/uL 4.2 - 1 1.0 [facility] Erythrocytes [#/volume] in Blood by Automated count 2.41 10^6/uL 4. 20 - 5.40 L [facility] Hemoglobin [Mass/volume] in Blood 9.0 g/dL 12.0 - 16.0 L [facility] Hematocrit [Volume Fraction] of Blood by Automated count 26.7 % 3 7.0 - 47.0 L [facility] Erythrocyte mean corpuscular volume [Entitic volume] b y Automated count 110.8 fL 81.0 - 101 H [facility] Erythrocyte mean corpuscular hemoglobin [Entitic mass] by Automated count 37.3 pg 27.0 - 34.0 H [facility] Erythrocyte mean corpuscular hemoglobin concentration [Mass/volume] by Automated count 33.7 g/dL 31.0 - 36.0 [facility] Erythrocyte distribution width [Ratio] by Automated count 14.7 % 11.5 - 14.5 H [facility] Platelets [#/volume] in Blood by Automated count 48 10^3/uL 150 - 450 L [facility] Platelet mean volume [Entitic volume] in Blood by Automated count 11.9 fL 7.4 - 10.4 H [facility] Neutrophils/100 leukocytes in Blood by Automated count 73.9 % 37. 0 - 80.0 [facility] Lymphocytes/100 leukocytes in Blood by Manual count 8.4 % 25.0 - 40.0 L [facility] Monocytes/100 leukocytes in Blood by Automated count 14.5 % 3.0 - 8.0 H [facility] Eosinophils/100 leukocytes in Blood by Automated count 0.2 % 0.0 - 7.0 [facility] Basophils/100 leukocytes in Blood by Automated count 0.3 % 0.0 - 2.5 [facility] %IG 2.7 % 0.0 - 0.[address] [facility] al %NRBC 0.0 % 0.0 - 0.0 [facility] Neutrophils [#/volume] in Blood by Automated count 7.16 10^3/uL 2.00 - 6.90 H [facility] Lymphocytes [#/volume] in Blood by Automated count 0.81 10^3/uL 0.60 - 3.40 [facility] Monocytes [#/volume] in Blood by Automated count 1.40 10^3/uL 0.00 - 0.90 H [facility] Eosinophils [#/volume] in Blood by Automated count 0.02 10^3/uL 0.00 - 0.70 [facility] Basophils [#/volume] in Blood by Automated count 0.03 10^3/uL 0.00 - 0.20 [facility] #IG 0.26 10^3/uL 0.00 - 0.[address] [facility] H ospital #NRBC 0.00 10^3/uL 0.00 - 0.00 [facility] ospital MANUAL DIFF SEE BELOW [facility] Segmented neutrophils/100 leukocytes in Blood by Manual count 88 % 37 - 80 H [facility] %LYMPH 8 % 25 - [address] [facility] al %MONO 4 % 3 - 8 [facility] RBC MORPH SEE BELOW [facility] Anisocytosis [Presence] in Blood by Light microscopy 1+ SHAUNA L: NONE SEEN A [facility] Macrocytes [Presence] in Blood by Light microscopy 1+ NORMAL: NONE SEEN A [facility] Poikilocytosis [Presence] in Blood by Light microscopy 1+ NOR MAL: NONE SEEN A [facility] Polychromasia [Presence] in Blood by Light microscopy 1+ NORM AL: NONE SEEN A [facility] { SICKLE CELL (NORMAL: NONE SEEN ) Platelet adequacy [Presence] in Blood by Light microscopy DE CREASED NORMAL: NORMAL A [facility] COMMENT: ID Date Data Source [id number] 02/25/2020 07:49:00 AM EDT [facility] Name Value Range Interpretation Code Description Data Maura rce(s) Supporting Document(s) BASIC METABOLIC PANEL [facility] BASIC METABOLIC PANEL Sodium [Moles/volume] in Serum or Plasma 143 mEq/L 134 - 153 [facility] Potassium [Moles/volume] in Serum or Plasma 4.1 mEq/L 3.6 - 5.0 [facility] Chloride [Moles/volume] in Serum or Plasma 96 mEq/L 98 - 107 L [facility] Carbon dioxide, total [Moles/volume] in Serum or Plasma 37 MEQ/L 22 - 30 H [facility] Glucose [Mass/volume] in Serum or Plasma 97 MG/DL 65 - 110 [facility] BUN 21 MG/DL 7 - 21 [facility] Creatinine [Mass/volume] in Serum or Plasma 0.7 MG/DL 0.7 - 1.5 [facility] BUN/CREAT 30 8 - 27 H [facility] Calcium [Mass/volume] in Serum or Plasma 9.5 MG/DL 8.4 - 10.2 [facility] Anion gap 3 in Serum or Plasma 10.0 mmol/L 8.0 - 16.0 [facility]GE 54 [facility] GFR >60 mL/min [facility] Ho spital NON-AA GFR >60 mL/min [facility] ital Male GFR Inter prentation 20-49 yrs >60 mL/min Normal 50-59 yrs >56 mL/min Normal 60-69 yrs >49 mL/min Normal 70-79yrs >42 mL/min Normal 80 and above >35 mL/min Normal Female GFR Interpretation 20-39 yrs >60 mL/min Normal 40-49 yrs >58 mL/min Normal 50-59 yrs >51 mL/min Normal 60-69 yrs >45 mL/min Normal 70-79 yrs >39 mL/min Normal 80 and above >32 mL/min Normal ID Date Data Source [id number] 02/24/2020 09:26:00 PM EDT [facility] [address] [place] [address] PHONE: [phone] FAX: [phone] Name ..............: JUANITO ROMAN EAcct Number .....................: [id number] ROOM. ............: 103-1 MR Number ............................: [id number] Stay type.........: I/P Discharge Date...............: Admit Date .....: 02/21/20 Admit Phys .............................: DOMENIC Date of ..: 1965 Family Phys ...........................: SEQUEIRA Phone..............: [phone] Age.................................:54 Film# ........ .......:[id number] Sex.................................:F Unsigned transcriptions are preliminary reports and do [place] [id number] COMPLETE:02/24/20 12:59 03445 Please See Scanned Results. Name Value Range Interpretation Code Description Data Maura rce(s) Supporting Document(s) ID Date Data Source [id number] 02/24/2020 03:07:00 PM EDT [facility] Name Value Range Interpretation Code Description Data Maura [facility](s) Supporting Document(s) BASIC METABOLIC PANEL [facility] BASIC METABOLIC PANEL Sodium [Moles/volume] in Serum or Plasma 138 mEq/L 134 - 153 [facility] Potassium [Moles/volume] in Serum or Plasma 4.1 mEq/L 3.6 - 5.0 [facility] Chloride [Moles/volume] in Serum or Plasma 89 mEq/L 98 - 107 L [facility] Carbon dioxide, total [Moles/volume] in Serum or Plasma 35 MEQ/L 22 - 30 H [facility] Glucose [Mass/volume] in Serum or Plasma 200 MG/DL 65 - 110 H [facility] BUN 25 MG/DL 7 - 21 H [facility] al Creatinine [Mass/volume] in Serum or Plasma 0.9 MG/DL 0.7 - 1.5 [facility] BUN/CREAT 28 8 - 27 H [facility] Calcium [Mass/volume] in Serum or Plasma 9.6 MG/DL 8.4 - 10.2 [facility] Anion gap 3 in Serum or Plasma 14.0 mmol/L 8.0 - 16.0 [facility] AGE 54 yrs [facility] al AFR AMER GFR >60 mL/min [facility] Ho spital NON-AA GFR >60 mL/min [facility] Hosp ital Male GFR Inter prentation 20-49 yrs >60 mL/min Normal 50-59 yrs >56 mL/min Normal 60-69 yrs >49 mL/min Normal 70-79yrs >42 mL/min Normal 80 and above >35 mL/min Normal Female GFR Interpretation 20-39 yrs >60 mL/min Normal 40-49 yrs >58 mL/min Normal 50-59 yrs >51 mL/min Normal 60-69 yrs >45 mL/min Normal 70-79 yrs >39 mL/min Normal 80 and above >32 mL/min Normal ID Date Data Source [id number] 02/24/2020 02:58:00 PM EDT [facility] Name Value Range Interpretation Code Description Data Maura rce(s) Supporting Document(s) CBC W/AUTOMATED DIFF [facility] COMPLETE BLOOD COUNT Leukocytes [#/volume] in Blood by Automated count 16.2 10^3/uL 4.2 - 11.0 H [facility] Erythrocytes [#/volume] in Blood by Automated count 2.61 10^6/uL 4. 20 - 5.40 L [facility] Hemoglobin [Mass/volume] in Blood 9.7 g/dL 12.0 - 16.0 L [facility] Hematocrit [Volume Fraction] of Blood by Automated count 28.6 % 3 7.0 - 47.0 L [facility] Erythrocyte mean corpuscular volume [Entitic volume] b y Automated count 109.6 fL 81.0 - 101 H [facility] Erythrocyte mean corpuscular hemoglobin [Entitic mass] by Automated count 37.2 pg 27.0 - 34.0 H [facility] Erythrocyte mean corpuscular hemoglobin concentration [Mass/volume] by Automated count 33.9 g/dL 31.0 - 36.0 [facility] Erythrocyte distribution width [Ratio] by Automated count 14.9 % 11.5 - 14.5 H [facility] Platelets [#/volume] in Blood by Automated count 58 10^3/uL 150 - 450 L [facility] Platelet mean volume [Entitic volume] in Blood by Automated count 12.5 fL 7.4 - 10.4 H [facility] Neutrophils/100 leukocytes in Blood by Automated count 77.9 % 37. 0 - 80.0 [facility] Lymphocytes/100 leukocytes in Blood by Manual count 7.2 % 25.0 - 40.0 L [facility] Monocytes/100 leukocytes in Blood by Automated count 12.9 % 3.0 - 8.0 H [facility] Eosinophils/100 leukocytes in Blood by Automated count 0.2 % 0.0 - 7.0 [facility] Basophils/100 leukocytes in Blood by Automated count 0.4 % 0.0 - 2.5 [facility] %IG 1.4 % 0.0 - 0.[address] [facility] al %NRBC 0.0 % 0.0 - 0.0 [facility] al Neutrophils [#/volume] in Blood by Automated count 12.59 10^3/uL 2. 00 - 6.90 H [facility] Lymphocytes [#/volume] in Blood by Automated count 1.16 10^3/uL 0.60 - 3.40 [facility] Monocytes [#/volume] in Blood by Automated count 2.09 10^3/uL 0.00 - 0.90 H [facility] Eosinophils [#/volume] in Blood by Automated count 0.03 10^3/uL 0.00 - 0.70 [facility] Basophils [#/volume] in Blood by Automated count 0.07 10^3/uL 0.00 - 0.20 [facility] #IG 0.22 10^3/uL 0.00 - 0.[address] [facility] H ospital #NRBC 0.00 10^3/uL 0.00 - 0.00 [facility] ospital MANUAL DIFF SEE BELOW [facility] Hosp ital Segmented neutrophils/100 leukocytes in Blood by Manual count 82 % 37 - 80 H [facility] %LYMPH 5 % 25 - [address] [facility] al %MONO 13 % 3 - [address] [facility] al Blasts/100 leukocytes in Blood by Manual count 0 % [facility] RBC MORPH SEE BELOW [facility] al HYPO 1+ NORMAL: NONE SEEN A [facility] { SICKLE CELL 0 (NORMAL: NONE SEEN ) COMMENT: ID Date Data Source [id number] 02/24/2020 11:05:00 AM EDT [facility] [address] [place] [address] PHONE: [phone] FAX: [phone] Name .................. : JUANITO Daniels Acct Number.................. : [id number] ROOM. ................. : 103-1 MR Number ................... : [id number] Stay type ............. : I/P Discharge Date......... ... : Admit Date ......... : 02/21/20 Admit Phys .................... : LUCHO-ANNABELLA Date of ....... : 1965 Family Phys ................... : BRANDON MARIE Phone .................. : [phone] Age ................................ : 54 Film# .................. .:[id number] Sex ................................. : F Unsigned transcriptions are preliminary reports and do not represent a medical or legal document CHEST PORTABLE [id number] COMPLETE:02/22/20 88:88 [id number] (REASON FOR CHEST: CAN CER PORTABLE CHEST, 02/22/20: Comparison is January 08, 2020. FINDINGS: Frontal portable view of the chest is performed. COPD changes are noted. Mass- like consolidation is seen in the left upper lobe that has slightly decreased in dimensions with slightly improved aeration of the left upper lobe. Mass-like consolidations likely due to malignant process. The lungs are otherwise clear. Mediport catheter tip is in the SVC. Heart is mildly enlarged. There is no acute osseous abnormality. Pneumothorax and pleural effusions are not seen. IMPRESSION: Left upper lobe mass-like consolidation with slightly decreased dimensions of a slightly increased aeration of the left upper lobe. No other interval change seen. Electronically Reviewed and Signed By Everett Jimenez MD , 02/24/20 11:05, MARY Transcribe Initials: NARESH, Transcribe Date: 02/22/20 12:22, Dictation Date: Copy for: 002 [facility] Copy for: [address] [facility] REC Page 1 of 1 Name Value Range Interpretation Code Description Data Maura rce(s) Supporting Document(s) ID Date Data Source [id number] 02/24/2020 07:12:00 AM EDT [facility] Name Value Range Interpretation Code Description Data Maura rce(s) Supporting Document(s) CBC W/AUTOMATED DIFF [facility] COMPLETE BLOOD COUNT Leukocytes [#/volume] in Blood by Automated count 8.7 10^3/uL 4.2 - 1 1.0 [facility] Erythrocytes [#/volume] in Blood by Automated count 2.62 10^6/uL 4. 20 - 5.40 L [facility] Hemoglobin [Mass/volume] in Blood 9.6 g/dL 12.0 - 16.0 L [facility] Hematocrit [Volume Fraction] of Blood by Automated count 28.8 % 3 7.0 - 47.0 L [facility] Erythrocyte mean corpuscular volume [Entitic volume] b y Automated count 109.9 fL 81.0 - 101 H [facility] Erythrocyte mean corpuscular hemoglobin [Entitic mass] by Automated count 36.6 pg 27.0 - 34.0 H [facility] Erythrocyte mean corpuscular hemoglobin concentration [Mass/volume] by Automated count 33.3 g/dL 31.0 - 36.0 [facility] Erythrocyte distribution width [Ratio] by Automated count 14.7 % 11.5 - 14.5 H [facility] Platelets [#/volume] in Blood by Automated count 52 10^3/uL 150 - 450 L [facility] Platelet mean volume [Entitic volume] in Blood by Automated count 11.9 fL 7.4 - 10.4 H [facility] Neutrophils/100 leukocytes in Blood by Automated count 71.6 % 37. 0 - 80.0 [facility] Lymphocytes/100 leukocytes in Blood by Manual count 9.2 % 25.0 - 40.0 L [facility] Monocytes/100 leukocytes in Blood by Automated count 17.4 % 3.0 - 8.0 H [facility] Eosinophils/100 leukocytes in Blood by Automated count 0.1 % 0.0 - 7.0 [facility] 0.3 %IG 1.4 % 0.0 - 0.0 [facility] %[facility] 0.0 % 0.0 - 0.0 [facility] al Neutrophils [#/volume] in Blood by Automated count 6.26 10^3/uL 2.00 - 6.90 [facility] Lymphocytes [#/volume] in Blood by Automated count 0.80 10^3/uL 0.60 - 3.40 [facility] Monocytes [#/volume] in Blood by Automated count 1.52 10^3/uL 0.00 - 0.90 H [facility] Eosinophils [#/volume] in Blood by Automated count 0.01 10^3/uL 0.00 - 0.70 [facility] Basophils [#/volume] in Blood by Automated count 0.03 10^3/uL 0.00 - 0.20 [facility] #IG 0.12 10^3/uL 0.00 - 0.[address] [facility] H ospital #NRBC 0.00 10^3/uL 0.00 - 0.00 [facility] ospital MANUAL DIFF SEE BELOW [facility] ital Segmented neutrophils/100 leukocytes in Blood by Manual count 76 % 37 - 80 [facility] BAND 0 % 0 - 5 [facility] al %LYMPH 11 % 25 - [address] [facility] al %MONO 12 % 3 - 8 H [facility] al %EOS 1 % 0 - 7 [facility] al 0 RBC MORPH NOT INDICATED [facility] Ho spital ID Date Data Source [id number] 02/24/2020 07:11:00 AM EDT [facility] Name Value Range Interpretation Code Description Data Maura rce(s) Supporting Document(s) BASIC METABOLIC PANEL [facility] BASIC METABOLIC PANEL Sodium [Moles/volume] in Serum or Plasma 140 mEq/L 134 - 153 [facility] Potassium [Moles/volume] in Serum or Plasma 3.8 mEq/L 3.6 - 5.0 [facility] Chloride [Moles/volume] in Serum or Plasma 92 mEq/L 98 - 107 L [facility] Carbon dioxide, total [Moles/volume] in Serum or Plasma 38 MEQ/L 22 - 30 H [facility] Glucose [Mass/volume] in Serum or Plasma 95 MG/DL 65 - 110 [facility] BUN 21 MG/DL 7 - 21 [facility] al Creatinine [Mass/volume] in Serum or Plasma 0.7 MG/DL 0.7 - 1.5 [facility] BUN/CREAT 30 8 - 27 H [facility] al Calcium [Mass/volume] in Serum or Plasma 9.4 MG/DL 8.4 - 10.2 [facility] Anion gap 3 in Serum or Plasma 10.0 mmol/L 8.0 - 16.0 [facility] AGE 54 yrs [facility] al AFR AMER GFR >60 mL/min [facility] Ho spital NON-AA GFR >60 mL/min [facility] ital Male GFR Inter prentation 20-49 yrs >60 mL/min Normal 50-59 yrs >56 mL/min Normal 60-69 yrs >49 mL/min Normal 70-79yrs >42 mL/min Normal 80 and above >35 mL/min Normal Female GFR Interpretation 20-39 yrs >60 mL/min Normal 40-49 yrs >58 mL/min Normal 50-59 yrs >51 mL/min Normal 60-69 yrs >45 mL/min Normal 70-79 yrs >39 mL/min Normal 80 and above >32 mL/min Normal ID Date Data Source [id number] 02/23/2020 07:26:00 AM EDT [facility] Name Value Range Interpretation Code Description Data Maura rce(s) Supporting Document(s) CBC W/AUTOMATED DIFF [facility] COMPLETE BLOOD COUNT Leukocytes [#/volume] in Blood by Automated count 10.2 10^3/uL 4.2 - 11.0 [facility] Erythrocytes [#/volume] in Blood by Automated count 2.89 10^6/uL 4. 20 - 5.40 L [facility] Hemoglobin [Mass/volume] in Blood 10.8 g/dL 12.0 - 16.0 L [facility] Hematocrit [Volume Fraction] of Blood by Automated count 32.3 % 3 7.0 - 47.0 L [facility] Erythrocyte mean corpuscular volume [Entitic volume] b y Automated count 111.8 fL 81.0 - 101 H [facility] Erythrocyte mean corpuscular hemoglobin [Entitic mass] by Automated count 37.4 pg 27.0 - 34.0 H [facility] Erythrocyte mean corpuscular hemoglobin concentration [Mass/volume] by Automated count 33.4 g/dL 31.0 - 36.0 [facility] Erythrocyte distribution width [Ratio] by Automated count 15.3 % 11.5 - 14.5 H [facility] Platelets [#/volume] in Blood by Automated count 58 10^3/uL 150 - 450 L [facility] Platelet mean volume [Entitic volume] in Blood by Automated count 12.0 fL 7.4 - 10.4 H [facility] Neutrophils/100 leukocytes in Blood by Automated count 71.2 % 37. 0 - 80.0 [facility] Lymphocytes/100 leukocytes in Blood by Manual count 7.7 % 25.0 - 40.0 L [facility] Monocytes/100 leukocytes in Blood by Automated count 19.3 % 3.0 - 8.0 H [facility] Eosinophils/100 leukocytes in Blood by Automated count 0.2 % 0.0 - 7.0 [facility] Basophils/100 leukocytes in Blood by Automated count 0.9 % 0.0 - 2.5 [facility] %IG 0.7 % 0.0 - 0.[address] [facility] al %NRBC 0.0 % 0.0 - 0.0 [facility] Neutrophils [#/volume] in Blood by Automated count 7.29 10^3/uL 2.00 - 6.90 H [facility] Lymphocytes [#/volume] in Blood by Automated count 0.79 10^3/uL 0.60 - 3.40 [facility] Monocytes [#/volume] in Blood by Automated count 1.98 10^3/uL 0.00 - 0.90 H [facility] Eosinophils [#/volume] in Blood by Automated count 0.02 10^3/uL 0.00 - 0.70 [facility] Basophils [#/volume] in Blood by Automated count 0.09 10^3/uL 0.00 - 0.20 [facility] #IG 0.07 10^3/uL 0.00 - 0.10 [facility] H ospital #NRBC 0.00 10^3/uL 0.00 - 0.00 [facility] ospital MANUAL DIFF SEE BELOW [facility] ital Segmented neutrophils/100 leukocytes in Blood by Manual count 78 % 37 - 80 [facility] %LYMPH 7 % 25 - 40 [facility] %MONO 14 % 3 - 8 H [facility] al %EOS 1 % 0 - 7 [facility] al Nucleated erythrocytes/100 erythrocytes in Blood by Manual count 1 % [facility] RBC MORPH SEE BELOW [facility] al Anisocytosis [Presence] in Blood by Light microscopy 1+ SHAUNA L: NONE SEEN A [facility] Macrocytes [Presence] in Blood by Light microscopy 1+ NORMAL: NONE SEEN A [facility] Poikilocytosis [Presence] in Blood by Light microscopy 1+ NOR MAL: NONE SEEN A [facility] { SICKLE CELL (NORMAL: NONE SEEN ) Platelet adequacy [Presence] in Blood by Light microscopy DE CREASED NORMAL: NORMAL A [facility] COMMENT: ID Date Data Source [id number] 02/23/2020 08:02:00 AM EDT [facility] Name Value Range Interpretation Code Description Data Maura rce(s) Supporting Document(s) COMPREHENSIVE METABOLIC PANEL [facility] COMPREHENSIVE METABOLIC PANEL Sodium [Moles/volume] in Serum or Plasma 141 mEq/L 134 - 153 [facility] Potassium [Moles/volume] in Serum or Plasma 4.2 mEq/L 3.6 - 5.0 [facility] Chloride [Moles/volume] in Serum or Plasma 99 mEq/L 98 - 107 [facility] Carbon dioxide, total [Moles/volume] in Serum or Plasma 29 MEQ/L 22 - 30 [facility] Glucose [Mass/volume] in Serum or Plasma 90 MG/DL 65 - 110 [facility] BUN 19 MG/DL 7 - 21 [facility] Creatinine [Mass/volume] in Serum or Plasma 0.6 MG/DL 0.7 - 1.5 L [facility] BUN/CREAT 32 8 - 27 [facility] Protein [Mass/volume] in Serum or Plasma 5.8 G/DL 6.3 - 8.2 L [facility] Albumin [Mass/volume] in Serum or Plasma 3.7 G/DL 3.9 - 5.0 L [facility] Globulin [Mass/volume] in Serum by calculation 2.1 GM/DL 2.4 - 3.2 L [facility] A/G RATIO 1.8 0.8 - 2.0 [facility] Calcium [Mass/volume] in Serum or Plasma 9.0 MG/DL 8.4 - 10.2 [facility] Bilirubin.total [Mass/volume] in Serum or Plasma <0.7 MG/DL 0.2 - 1.3 [facility] Alkaline phosphatase [Enzymatic activity/volume] in Serum or Plasma 187 U/L 38 - 126 H [facility] Aspartate aminotransferase [Enzymatic activity/volume] in Serum or Plasma 32 U/L 5 - 40 [facility] Alanine aminotransferase [Enzymatic activity/volume] in Seru m or Plasma 35 U/L 7 - 56 [facility] Anion gap 3 in Serum or Plasma 13.0 mmol/L 8.0 - 16.0 [facility] AGE [address] [facility] al NON-AA GFR >60 mL/min [facility] ital AFR AMER GFR >60 mL/min [facility] Ho spital Male GFR In terprentation 20-49 yrs >60 mL/min Normal 50-59 yrs >56 mL/min Normal 60-69 yrs >49 mL/min Normal 70-79yrs >42 mL/min Normal 80 and above >35 mL/min Normal Female GFR Interpretation 20-39 yrs >60 mL/min Normal 40-49 yrs >58 mL/min Normal 50-59 yrs >51 mL/min Normal 60-69 yrs >45 mL/min Normal 70-79 yrs >39 mL/min Normal 80 and above >32 mL/min Normal ID Date Data Source [id number] 02/22/2020 07:52:00 PM EDT [facility] [address] [place] [address] RESPIRATORY CARE REPORT ==== ---------NAME------- NUMBER SEX AGE ADMIT DISC. XRAY# F/C CYNDY Daniels [id number] F 54 02/21/20 [id number] B1 I/P DATE OF : 1965 M/R# [id number] PH#: [phone] 103-1 LOCATION: EMERGENCY DEPT EKG 66471 COMPLE TE:02/22/20 08:29 ED 07698 PHYSICIAN: DOMENIC SKAGGS Name Value Range Interpretation Code Description Data Maura rce(s) Supporting Document(s) ID Date Data Source [id number] 02/22/2020 09:16:00 AM EDT [facility] [address] [place] [address] PHONE: [phone] FAX: [phone] Name .................. : JUANITO Daniels Acct Number.................. : [id number] ROOM. ................. : 103-1 Number ................... : [id number] Stay type ............. : O/P Discharge Date......... ... : Admit Date ......... : 02/01 06/22 Admit Phys .................... : DOMENIC Date of ....... : 1965 Family Phys ................... : BRANDON MARIE Phone .................. : [phone] Age ................................ : 54 Film# .................. .:[id number] Sex ................................. : F Unsigned transcriptions are preliminary reports and do not represent a medical or legal document CT CTA CHEST NON-CORONARY W C [id number] COMPLETE:02/19/20 18:22 FILOMENA 25944 Reason(s): Hypoxemia, Pos D dimer, Hx of PE CTA OF THE CHEST WITH CONTRAST: COMPARISON: 01/09/20 TECHNIQUE: A PE protocol study was performed. Axial post contrast images were obtained along with MIP and routine sagittal/coronal reformatted images. FINDINGS: There is slight limitation due to streak artifact from Gonzalez rods at the thoracic spine. No filling defect is identified at the main, left, right pulmonary arteries or at their branch vessels to suggest pulmonary emboli. The thoracic aorta is normal size without focal aneurysm. There are no signs of dissection. There is cardiomegaly. A small pericardial effusion has increased anteriorly and inferiorly. No lymphadenopathy is identified. There is stable moderate to severe volume loss at the left hemithorax. A stable moderate effusion is seen at the upper left hemithorax. Th ere is stable severe consolidation/atelectasis/opacification at the left upper lobe/upper left hemithorax. No pneumothorax is identified. There are areas of mild atelectasis throughout the right lung and at the left base. At the upper abdomen, a fluid density cyst at the mid-left kidney measures about 1.8 cm. No suspicious osseous lesion or acute fracture is seen. Goznalez rods are present at the thoracic spine. There are stable old compression fractures at T7, T8 and L1. A right-sided port catheter is present with its tip at the SVC. IMPRESSION: No pulmonary embolism. Stable moderate to severe volume loss at the left hemithorax. Stable moderate effusion at upper left hemithorax. Stable severe consolidation/opacification/atelectasis at the left upper lobe/upper left hemithorax. Mild atelectasis seen throughout the rest of bilateral lungs. Cardiomegaly. Increased small pericardial effusion. A 1.8 cm left renal cyst. While performing the above CT examination, radiation dose reduction was accompl ished utilizing automated exposure control, adjusting of the mA and kV based on the patient's body size and/or the use of imperative reconstructive techniques. Page 1 of 2 [place] [address] PHONE: [phone] FAX: [phone] Name .................. : MANUEL Reeves Number.................. : [id number] ROOM. ................. : 103-1 MR Number ................... : [id number] Stay type ............. : O/P Discharge Date......... ... : Admit Date ......... : 02/19/20 Admit Phys .................... : LUCHO-FALAN Date of ....... : 1965 Family Phys ................... : [employer] Phone .................. : [phone] Age ................................ : 54 Film# .................. .:[id number] Sex ................................. : F Unsigned transcriptions are preliminary reports and do not represent a medical or legal document CT CTA CHEST NON-CORONARY W C 30412 COMPLETE:02/19/20 18:22 FILOMENA 80131 Reason(s): Hypoxemia, Pos D dimer, Hx of PE CT dose: 762 mGycm Contrast agent in mL: 75 Isovue 370 Method of administration: Intravenous Electronically Reviewed and Signed By Harjinder Culver MD , 02/22/20 09:16, TDS Transcribe Initials: DZ , Transcribe Date: 02/19/20 20:17, Dictation Date: Copy for: 002 [facility] Copy for: 710 MED REC Page 2 of 2 Name Value Range Interpretation Code Description Data [facility] Supporting Document(s) ID Date Data Source [id number] 02/22/2020 07:09:00 AM EDT [facility] Name Value Range Interpretation Code Description Data [facility] Supporting Document(s) CBC W/AUTOMATED DIFF [facility] COMPLETE BLOOD COUNT Leukocytes [#/volume] in Blood by Automated count 13.6 10^3/uL 4.2 - 11.0 H [facility] Erythrocytes [#/volume] in Blood by Automated count 2.15 10^6/uL 4. 20 - 5.40 L [facility] Hemoglobin [Mass/volume] in Blood 8.1 g/dL 12.0 - 16.0 L [facility] Hematocrit [Volume Fraction] of Blood by Automated count 24.9 % 3 7.0 - 47.0 L [facility] Erythrocyte mean corpuscular volume [Entitic volume] b y Automated count 115.8 fL 81.0 - 101 H [facility] Erythrocyte mean corpuscular hemoglobin [Entitic mass] by Automated count 37.7 pg 27.0 - 34.0 H [facility] Erythrocyte mean corpuscular hemoglobin concentration [Mass/volume] by Automated count 32.5 g/dL 31.0 - 36.0 [facility] Erythrocyte distribution width [Ratio] by Automated count 15.8 % 11.5 - 14.5 H [facility] Platelets [#/volume] in Blood by Automated count 44 10^3/uL 150 - 450 L [facility] Platelet mean volume [Entitic volume] in Blood by Automated count 11.8 fL 7.4 - 10.4 H [facility] Neutrophils/100 leukocytes in Blood by Automated count 76.6 % 37. 0 - 80.0 [facility] Lymphocytes/100 leukocytes in Blood by Manual count 3.8 % 25.0 - 40.0 L [facility] Monocytes/100 leukocytes in Blood by Automated count 18.1 % 3.0 - 8.0 H [facility] Eosinophils/100 leukocytes in Blood by Automated count 0.0 % 0.0 - 7.0 [facility] Basophils/100 leukocytes in Blood by Automated count 0.4 % 0.0 - 2.5 [facility] %IG 1.1 % 0.0 - 0.0 H [facility] %NRBC 0.0 % 0.0 - 0.0 [facility] al Neutrophils [#/volume] in Blood by Automated count 10.42 10^3/uL 2. 00 - 6.90 H [facility] Lymphocytes [#/volume] in Blood by Automated count 0.52 10^3/uL 0.60 - 3.40 L [facility] Monocytes [#/volume] in Blood by Automated count 2.47 10^3/uL 0.00 - 0.90 H [facility] Eosinophils [#/volume] in Blood by Automated count 0.00 10^3/uL 0.00 - 0.70 [facility] Basophils [#/volume] in Blood by Automated count 0.05 10^3/uL 0.00 - 0.20 [facility] #IG 0.15 10^3/uL 0.00 - 0.[address] [facility] H ospital #NRBC 0.00 10^3/uL 0.00 - 0.00 [facility] H ospital MANUAL DIFF SEE BELOW [facility] ital Segmented neutrophils/100 leukocytes in Blood by Manual count 86 % 37 - 80 H [facility] BAND 1 % 0 - 5 [facility] Hospit al %LYMPH 3 % 25 - 40 L [facility] al %MONO 10 % 3 - 8 H [facility] al RBC MORPH SEE BELOW [facility] al Anisocytosis [Presence] in Blood by Light microscopy 1+ SHAUNA L: NONE SEEN A [facility] Macrocytes [Presence] in Blood by Light microscopy 2+ NORMAL: NONE SEEN A [facility] Poikilocytosis [Presence] in Blood by Light microscopy 1+ NOR MAL: NONE SEEN A [facility] { SICKLE CELL (NORMAL: NONE SEEN ) Platelet adequacy [Presence] in Blood by Light microscopy DE CREASED NORMAL: NORMAL A [facility] COMMENT: ID Date Data Source [id number] 02/22/2020 06:45:00 AM EDT [facility] Name Value Range Interpretation Code Description Data Maura rce(s) Supporting Document(s) BASIC METABOLIC PANEL [facility] BASIC METABOLIC PANEL Sodium [Moles/volume] in Serum or Plasma 144 mEq/L 134 - 153 [facility] Potassium [Moles/volume] in Serum or Plasma 4.7 mEq/L 3.6 - 5.0 [facility] Chloride [Moles/volume] in Serum or Plasma 107 mEq/L 98 - 107 [facility] Carbon dioxide, total [Moles/volume] in Serum or Plasma 30 MEQ/L 22 - 30 [facility] Glucose [Mass/volume] in Serum or Plasma 97 MG/DL 65 - 110 [facility] BUN 12 MG/DL 7 - 21 [facility] Creatinine [Mass/volume] in Serum or Plasma 0.6 MG/DL 0.7 - 1.5 L [facility] BUN/CREAT 20 8 - 27 [facility] al Calcium [Mass/volume] in Serum or Plasma 7.7 MG/DL 8.4 - 10.2 L [facility] Anion gap 3 in Serum or Plasma 7.0 mmol/L 8.0 - 16.0 L [facility] AGE [address] [facility] al AFR AMER GFR >60 mL/min [facility] Ho spital NON-AA GFR >60 mL/min [facility] Hosp ital Male GFR Inter prentation 20-49 yrs >60 mL/min Normal 50-59 yrs >56 mL/min Normal 60-69 yrs >49 mL/min Normal 70-79yrs >42 mL/min Normal 80 and above >35 mL/min Normal Female GFR Interpretation 20-39 yrs >60 mL/min Normal 40-49 yrs >58 mL/min Normal 50-59 yrs >51 mL/min Normal 60-69 yrs >45 mL/min Normal 70-79 yrs >39 mL/min Normal 80 and above >32 mL/min Normal ID Date Data Source [id number] 02/21/2020 09:19:00 [place] [address] RESPIRATORY CARE REPORT ==== ---------NAME------- NUMBER SEX AGE ADMIT DISC. XRAY# F/C OSMANILAMAMELIA CHANTALE E [id number] F 54 02/21/20 [id number] B1 I/P DATE OF : 1965 M/R# [id number] #: [id number] [id number] LOCATION: EMERGENCY DEPT EKG 38629 COMP LETE:02/21/20 07:51 [facility] [address] PHYSICIAN: DOMENIC Name Value Range Interpretation Code Description Data Maura rce(s) Supporting Document(s) ID Date Data Source [id number] 02/21/2020 05:14:00 [place] [address] PHONE: [phone] FAX: [phone] Name .................. : JUANITO Daniels Acct Number.................. : [id number] ROOM. ................. : 103-1 MR Number ................... : [id number] Stay type ............. : I/P Discharge Date......... ... : Admit Date ......... : 02/21/20 Admit Phys .................... : LUCHO-ANNABELLA Date of ....... : 1965 Family Phys ................... : BRANDONJeremiah MARIE Phone .................. : [phone] Age ................................ : 54 Film# .................. .:[id number] Sex ................................. : F Unsigned transcriptions are preliminary reports and do not represent a medical or legal document DOPPLER VENOUS BILAT LEG 77448 COMPLETE:02/21/20 11:48 KNB 68144 (REASON FOR PROCESS: ABNORMAL D-DIMER BILATERAL LOWER EXTREMITY VENOUS DOPPLER, 02/21/20: Comparison January 08, 2020. FINDINGS: There is normal compressibility of the deep venous system from the external iliac through the popliteal vein with normal augmentation identified. IMPRESSION: No evidence for any underlying DVT. Electronically Reviewed and Signed By Everett Jimenez MD , 02/21/20 17:14, KGG Transcribe Initials: SSR, Transcribe Date: 02/21/20 12:26, Dictation Date: Copy for: 002 [facility] Copy for: 710 MED REC Page 1 of 1 Name Value Range Interpretation Code Description Data Maura rce(s) Supporting Document(s) ID Date Data Source [id number] 02/21/2020 01:23:00 PM EDT [facility] Name Value Range Interpretation Code Description Data Maura rce(s) Supporting Document(s) BASIC METABOLIC PANEL [facility] BASIC METABOLIC PANEL Sodium [Moles/volume] in Serum or Plasma 139 mEq/L 134 - 153 [facility] Potassium [Moles/volume] in Serum or Plasma 4.2 mEq/L 3.6 - 5.0 [facility] Chloride [Moles/volume] in Serum or Plasma 99 mEq/L 98 - 107 [facility] Carbon dioxide, total [Moles/volume] in Serum or Plasma 30 MEQ/L 22 - 30 [facility] Glucose [Mass/volume] in Serum or Plasma 110 MG/DL 65 - 110 [facility] BUN 9 MG/DL 7 - 21 [facility] Creatinine [Mass/volume] in Serum or Plasma 0.6 MG/DL 0.7 - 1.5 L [facility] BUN/CREAT 15 8 - 27 [facility] Calcium [Mass/volume] in Serum or Plasma 7.4 MG/DL 8.4 - 10.2 L [facility] Anion gap 3 in Serum or Plasma 10.0 mmol/L 8.0 - 16.0 [facility]GE 54 [facility] AMER GFR >60 mL/min [facility] Ho spital NON-AA GFR >60 mL/min [facility] Hosp ital Male GFR Inter prentation 20-49 yrs >60 mL/min Normal 50-59 yrs >56 mL/min Normal 60-69 yrs >49 mL/min Normal 70-79yrs >42 mL/min Normal 80 and above >35 mL/min Normal Female GFR Interpretation 20-39 yrs >60 mL/min Normal 40-49 yrs >58 mL/min Normal 50-59 yrs >51 mL/min Normal 60-69 yrs >45 mL/min Normal 70-79 yrs >39 mL/min Normal 80 and above >32 mL/min Normal ID Date Data Source [id number] 02/21/2020 12:52:00 PM EDT [facility] Name Value Range Interpretation Code Description Data Maura rce(s) Supporting Document(s) CBC NO DIFF [facility] ital COMPLETE BLOOD COUNT Leukocytes [#/volume] in Blood by Automated count 25.6 10^3/uL 4.2 - 11.0 H [facility] Erythrocytes [#/volume] in Blood by Automated count 2.48 10^6/uL 4. 20 - 5.40 L [facility] Hemoglobin [Mass/volume] in Blood 9.2 g/dL 12.0 - 16.0 L [facility] Hematocrit [Volume Fraction] of Blood by Automated count 28.2 % 3 7.0 - 47.0 L [facility] Erythrocyte mean corpuscular volume [Entitic volume] b y Automated count 113.7 fL 81.0 - 101 H [facility] Erythrocyte mean corpuscular hemoglobin [Entitic mass] by Automated count 37.1 pg 27.0 - 34.0 H [facility] Erythrocyte mean corpuscular hemoglobin concentration [Mass/volume] by Automated count 32.6 g/dL 31.0 - 36.0 [facility] Erythrocyte distribution width [Ratio] by Automated count 15.9 % 11.5 - 14.5 H [facility] Platelets [#/volume] in Blood by Automated count 56 10^3/uL 150 - 450 L [facility] Platelet mean volume [Entitic volume] in Blood by Automated count 12.1 fL 7.4 - 10.4 H [facility] ID Date Data Source [id number] 02/22/2020 04:15:00 PM T [facility] Name Value Range Interpretation Code Description Data Maura rce(s) Supporting Document(s) Cobalamin (Vitamin B12) [Mass/volume] in Serum or Plasma >2000 P G/ML 232 - 1245 H [facility] ID Date Data Source [id number] 02/21/2020 12:18:00 PM EDT [facility] Name Value Range Interpretation Code Description Data Maura rce(s) Supporting Document(s) Iron [Mass/volume] in Serum or Plasma 228 UG/DL 42 - 135 H [facility] Iron binding capacity.unsaturated [Mass/volume] in Serum or Plasma <112 UG/DL 112 - 347 [facility] UNABLE TO CALCULATE UIBC <112UNABLE TO C ALCULATE UIBC <112 ID Date Data Source [id number] 02/21/2020 10:15:00 AM T [facility] Name Value Range Interpretation Code Description Data Maura rce(s) Supporting Document(s) Folate [Mass/volume] in Serum or Plasma 16.4 NG/ML 4.4 - 31.0 [facility] ID Date Data Source [id number] 02/21/2020 07:16:00 AM T [facility] Name Value Range Interpretation Code Description Data Maura rce(s) Supporting Document(s) C reactive protein [Mass/volume] in Serum or Plasma by High sensitivity method 34.57 MG/L 1.00 - 3.00 H [facility] CDC/S HS-CRP CUT-OFF: RELATIVE RISK: <1.0 mg/L Low 1.0 - 3.0 mg/L Average >3.0 mg/L High Optimally, the average of HS-CRP results repeated two weeks apart should be used for risk assessment. ID Date Data Source [id number] 02/21/2020 07:14:00 AM [facility] Name Value Range Interpretation Code Description Data Maura rce(s) Supporting Document(s) CBC W/AUTOMATED DIFF [facility] COMPLETE BLOOD COUNT Leukocytes [#/volume] in Blood by Automated count 20.6 10^3/uL 4.2 - 11.0 H [facility] Erythrocytes [#/volume] in Blood by Automated count 2.31 10^6/uL 4. 20 - 5.40 L [facility] Hemoglobin [Mass/volume] in Blood 8.4 g/dL 12.0 - 16.0 L [facility] Hematocrit [Volume Fraction] of Blood by Automated count 26.3 % 3 7.0 - 47.0 L [facility] Erythrocyte mean corpuscular volume [Entitic volume] b y Automated count 113.9 fL 81.0 - 101 H [facility] Erythrocyte mean corpuscular hemoglobin [Entitic mass] by Automated count 36.4 pg 27.0 - 34.0 H [facility] Erythrocyte mean corpuscular hemoglobin concentration [Mass/volume] by Automated count 31.9 g/dL 31.0 - 36.0 [facility] Erythrocyte distribution width [Ratio] by Automated count 15.7 % 11.5 - 14.5 H [facility] Platelets [#/volume] in Blood by Automated count 44 10^3/uL 150 - 450 L [facility] Platelet mean volume [Entitic volume] in Blood by Automated count 11.4 fL 7.4 - 10.4 H [facility] Neutrophils/100 leukocytes in Blood by Automated count 78.9 % 37. 0 - 80.0 [facility] Lymphocytes/100 leukocytes in Blood by Manual count 1.6 % 25.0 - 40.0 L [facility] Monocytes/100 leukocytes in Blood by Automated count 14.5 % 3.0 - 8.0 H [facility] Eosinophils/100 leukocytes in Blood by Automated count 0.0 % 0.0 - 7.0 [facility] Basophils/100 leukocytes in Blood by Automated count 0.7 % 0.0 - 2.5 [facility] %IG 4.3 % 0.0 - 0.[address] [facility] %NRBC 0.0 % 0.0 - 0.0 [facility] Neutrophils [#/volume] in Blood by Automated count 16.24 10^3/uL 2. 00 - 6.90 H [facility] Lymphocytes [#/volume] in Blood by Automated count 0.33 10^3/uL 0.60 - 3.40 L [facility] Monocytes [#/volume] in Blood by Automated count 2.99 10^3/uL 0.00 - 0.90 H [facility] Eosinophils [#/volume] in Blood by Automated count 0.01 10^3/uL 0.00 - 0.70 [facility] Basophils [#/volume] in Blood by Automated count 0.14 10^3/uL 0.00 - 0.20 [facility] #IG 0.88 10^3/uL 0.00 - 0.[address] [facility] H [facility]spital #NRBC 0.00 10^3/uL 0.00 - 0.00 [facility] MANUAL DIFF SEE BELOW [facility] Hosp ital Segmented neutrophils/100 leukocytes in Blood by Manual count 87 % 37 - [address] [facility] BAND 1 % 0 - 5 [facility] al %LYMPH 3 % 25 - [address] [facility] al %MONO 9 % 3 - [address] [facility] RBC MORPH SEE BELOW [facility] Anisocytosis [Presence] in Blood by Light microscopy 1+ SHAUNA L: NONE SEEN A [facility] Macrocytes [Presence] in Blood by Light microscopy 1+ NORMAL: NONE SEEN A [facility] Poikilocytosis [Presence] in Blood by Light microscopy 1+ NOR MAL: NONE SEEN A [facility] { SICKLE CELL (NORMAL: NONE SEEN ) Platelet adequacy [Presence] in Blood by Light microscopy DE CREASED NORMAL: NORMAL A [facility] COMMENT: ID Date Data Source [id number] 02/21/2020 07:00:00 AM EDT [facility] Name Value Range Interpretation Code Description Data Maura rce(s) Supporting Document(s) COMPREHENSIVE METABOLIC PANEL [facility] COMPREHENSIVE METABOLIC PANEL Sodium [Moles/volume] in Serum or Plasma 142 mEq/L 134 - 153 [facility] Potassium [Moles/volume] in Serum or Plasma 5.2 mEq/L 3.6 - 5.0 H [facility] Chloride [Moles/volume] in Serum or Plasma 104 mEq/L 98 - 107 [facility] Carbon dioxide, total [Moles/volume] in Serum or Plasma 31 MEQ/L 22 - 30 H [facility] Glucose [Mass/volume] in Serum or Plasma 150 MG/DL 65 - 110 H [facility] BUN 7 MG/DL 7 - 21 [facility] al Creatinine [Mass/volume] in Serum or Plasma 0.5 MG/DL 0.7 - 1.5 L [facility] BUN/CREAT 14 8 - 27 [facility] Protein [Mass/volume] in Serum or Plasma 5.7 G/DL 6.3 - 8.2 L [facility] Albumin [Mass/volume] in Serum or Plasma 3.5 G/DL 3.9 - 5.0 L [facility] Globulin [Mass/volume] in Serum by calculation 2.2 GM/DL 2.4 - 3.2 L [facility] A/G RATIO 1.6 0.8 - 2.0 [facility] Calcium [Mass/volume] in Serum or Plasma 6.9 MG/DL 8.4 - 10.2 LL [facility] CALL/ READ BACK CALLED TO [facility] BY: THANIA [facility] DATE/TIME 02.21.20 @ [address] [place] [address] ospital Bilirubin.total [Mass/volume] in Serum or Plasma <0.7 MG/DL 0.2 - 1.3 [facility] Alkaline phosphatase [Enzymatic activity/volume] in Serum or Plasma 214 U/L 38 - 126 H [facility] Aspartate aminotransferase [Enzymatic activity/volume] in Serum or Plasma 26 U/L 5 - 40 [facility] Alanine aminotransferase [Enzymatic activity/volume] in Seru m or Plasma 25 U/L 7 - 56 [facility] Anion gap 3 in Serum or Plasma 7.0 mmol/L 8.0 - 16.0 L [facility] [facility] AGE 54 yrs [facility] al NON-AA GFR >60 mL/min [facility] ital AFR AMER GFR >60 mL/min [facility] Ho spital Male GFR In terprentation 20-49 yrs >60 mL/min Normal 50-59 yrs >56 mL/min Normal 60-69 yrs >49 mL/min Normal 70-79yrs >42 mL/min Normal 80 and above >35 mL/min Normal Female GFR Interpretation 20-39 yrs >60 mL/min Normal 40-49 yrs >58 mL/min Normal 50-59 yrs >51 mL/min Normal 60-69 yrs >45 mL/min Normal 70-79 yrs >39 mL/min Normal 80 and above >32 mL/min Normal ID Date Data Source [id number] 02/21/2020 06:57:00 AM EDT [facility] Name Value Range Interpretation Code Description Data Maura rce(s) Supporting Document(s) Magnesium [Mass/volume] in Serum or Plasma 2.0 MG/DL 1.7 - 2.2 [facility] ID Date Data Source [id number] 02/19/2020 11:41:00 AM EDT [facility] 1 OrderSheet [facility] Emergency Department [address] [place] [address] Phone #: ext- [phone] 02/19/2020 11:36 Patient: CHANTALE SOLOMON Sex: F : 1965 Age: 54yWEIGHT:86.1 kg (S) HEIGHT:60 inches (S) BMI:37.1ALLERGIES: Penicillins, SeafoodCHIEF COMPLAINT: dyspneaLAB ORDERSOrder Description Priority Entered Acknowledged InitialedBlood Culture STAT 13:02/19/2020 13:21 Darien Faust X2 (Florence LOPEZ; RN13:18 02/19/2020)Blood Culture STAT 13:02/19/2020 14:38 Darien Faust X2 (Florence LOPEZ; RN13:28 02/19/2020)CBC w Diff STAT 13:02/19/2020 13:21 Camron Faust; RNBNP STAT 13:02/19/2020 13:21 Camron Faust; RNCMP STAT 13:18 02/19/2020 13:21 Camron Faust; RNCORONAVIRUS STAT 13:02/19/2020 14:38 Lakhwinder FaustLeila LOPEZ; RND-Dimer STAT 13:18 02/19/2020 13:21 Camron Faust; RNInfluenza Nasal A B STAT 13:18 02/19/2020 14:38 Camron Faust; RNLactic Acid STAT 13:18 02/19/2020 13:21 Camron Faust; RNRapid Strep Screen STAT 13:18 02/19/2020 14:38 Camron Faust; RNTroponin-T STAT 13:18 02/19/2020 13:21 Camron Faust; RNUrinalysis (Clean STAT 13:18 02/19/2020 14:38 Fiona Faust; RNVenous Blood Gas STAT 13:18 02/19/2020 13:21 Camron Faust; RNPT/PTT STAT 13:18 02/19/2020 13:21 Camron Faust; RNFerritin STAT 13:18 02/19/2020 13:21 Camron Faust; RNTroponin-T STAT 19:35 02/19/2020 19:53 Zoss, February 02 OrderSheet [facility] Emergency Department [address] [place] [address] Phone #: ext- [phone] 02/19/2020 11:36 Patient: CHANTALE SOLOMON Sex: F : 1965 Age: 54y Elliott Garland N.P.;DIAGNOSTIC STUDY ORDERSOrder Description Priority Entered Acknowledged InitialedCT CTA CHEST STAT 15:38 02/19/2020 16:07 Camron Faust(NONCOR) Luciana LOPEZ; RNINC PP (Oxygen?(Yes)) (IV?(Yes)) NOTES: Covid precautions Reason for Study: Hypoxemia, Pos D dimer, Hx of PEMEDICATION/IV/DRIP/FLUID ORDERSOrder Description Priority Entered Acknowledged InitialedAzithromycin IVPB 19:10 02/19/2020 Ack'd: 19:56 20:25 Zoss, Xiens804 mg with Wil LOPEZ; ZossFebruary R.N. R.N.DextroseIntravenous 250 mL(NOW)Rocephin 19:02/19/2020 19:53 Zoss, February(1gm/50mL) IVPB Wil LOPEZ; R.N.1000 mg withDextrose 50 mlspike bag (D5W) Reason for ordering with alerts: Clinical consideration given -- 19:02/19/2020 Wil Ramos PALactated Ringers IV 19:02/19/2020 Ack'd: 19:56 20:26 ZodenishaFebruary: Bolus 500 mL, Wil LOPEZ; Zoss, February R.N. R.N.then 125 mL/hr(NOW) Reason for ordering with alerts: Clinical consideration given -- 19:02/19/2020 Wil Ramos PAGENERAL ORDERSOrder Description Priority Entered Acknowledged InitialedEKG 13:18 02/19/2020 14:38 Camron Faust; RNOxygen titrate to 13:18 02/19/2020 13:21 Camron Faust92Kota LOPEZ; RNSaline Lock 13:19 02/19/2020 14:38 Camron Faust; RNSepsis Protocol 19:02/19/2020 20:26 Vinicius February Wil LOPEZ; R.N. 3 OrderSheet [facility] Emergency Department [address] [place] [address] Phone #: ext- [phone] 02/19/2020 11:36 Patient: CHANTALE SOLOMON Sex: F : 1965 Age: 54y[Electronically signed by Robyn Colvin R.N. (20:52 02/19/2020)][Electronically signed by Wil Ramos (14:56 02/20/2020)][Electronically locked by Robyn Colvin R.N. (20:52 02/19/2020)] Name Value Range Interpretation Code Description Data Maura rce(s) Supporting Document(s) ID Date Data Source [id number] 02/19/2020 11:41:00 AM EDT [facility] 1 Medication Reconciliation Report [facility] Emergency Department [address] [place] [address] Phone #: ext- [phone] 02/19/2020 11:36 Patient: CHANTALE SOLOMON Sex: F : 1965 Age: 54yWeight: 86.1 kgHeight/Length: 60 in.BMI: 37.1ALLERGIES: Penicillins, SeafoodThe patient's Home Medications are listed below:THE FOLLOWING MEDICATIONS NEED TO BE RECONCILED: dilTIAZem HCl Oral Pantoprazole Sodium Oral Pharmacy [facility] Spiriva HandiHaler Inhalation Symbicort Inhalation Tylenol Oral Xarelto OralThe source(s) of the original Home Medication information:Not obtained.The following Medications were given to the patient in the Emergency Department:ROCEPHIN (1GM/50ML) [IVPB] IVPB bolus 0, then 1 gm 100 mL/hr, administered: 02/19/2020 7:53:00 PMAzithromycin [IVPB] IVPB bolus 0, then 500 mg 250 mL/hr, administered: 02/19/2020 8:25:00 PMLACTATED RINGERS [IV] IV Fluids bolus 500 mL, administered: 02/19/2020 8:26:00 PMThe following Medications were prescribed to the patient:None. Name Value Range Interpretation Code Description Data Maura rce(s) Supporting Document(s) ID Date Data Source [id number] 02/19/2020 11:41:00 AM EDT [facility] 1 Medication Administration Record [facility] Emergency Department [address] [place] [address] Phone #: [phone]- [phone] 02/19/2020 11:36 Patient: CHANTALE SOLOMON Sex: F : 1965 Age: 54yWeight: 86.1 kgHeight/Length: 60 inBMI: 37.1ALLERGIES: Seafood, Penicillins Date/Time Medication Administered Medication OrderedStart AZITHROMYCIN [IVPB] Azithromycin IVPB 500 mg with20:25 02/19/2020 Dose: 500 mg IVPB Dextrose Intravenous 250 mLVinicius, February, R.N. Rate: 250 mL/hr over 1 hour(s) (NOW)---- Dispensed: 250 mL bagContinued Upon Admission Site: #1 left AC20:51 02/19/2020Robyn Colvin, R.N.Start ROCEPHIN (1GM/50ML) [IVPB] Rocephin (1gm/50mL) IVPB [id number] 02/19/2020 (CEFTRIAXONE SODIUM) mg with Dextrose 50 ml spike bagVinicius, February, R.N. Dose: 1 gm IVPB (D5W)---- Rate: 100 mL/hr over 30 minute(s)Stop Dispensed: 50 mL bag20:20 02/19/2020 Site: #1 left ACVinicius Robyn, R.N.Start LACTATED RINGERS [IV] Lactated Ringers IV : Bolus 62424:26 Dose: IV Fluids mL, then 125 mL/hr (NOW)Vinicius Robyn, R.N. Bolus: 500 mL---- Dispensed: 1000 mL bagContinued Upon Admission Site: #1 left AC20:51 02/19/2020Robyn Colvin, R.N. Name Value Range Interpretation Code Description Data Maura rce(s) Supporting Document(s) ID Date Data Source [id number] 02/19/2020 11:41:00 AM EDT [facility] 1 General Instructions [facility] Emergency Department [address] [place] [address] Phone #: pot- [phone] 02/19/2020 11:36 Patient: CHANTALE SOLOMON Sex: F : 1965 Age: 54y Hypoxia, Pneumonia, SIRS, Anemia.INSTRUCTIONS Follow-up: Return to the emergency department as needed. Follow up with your healthcare provider. ADDITIONAL INFORMATION Prevention steps for People with confirmed or suspected COVID-19 (including persons under investigation) who do not need to be hospitalized A nd People with confirmed COVID-19 who were hospitalized and determined to be medically stable to go home Your healthcare provider and public health staff will evaluate whether you can be cared for at home. If it isdetermined that you do not need to be hospitalized and can be isolated at home, you will be [facility]. You should follow the prevention steps below until a healthcare provider [facility] says you can return to your normal activities. becoming sick with COVID-19, it is still recommended that people sick Stay home except to get medical care with COVID-19 limit contact with anima l s until more information is People who are mildly ill with COVID-19 a re able to isolate at known about the virus. When possible, have another member of yourhome during their illness. You should restrict activities outside your household care for your animals while you are sick. If you are sick withhome, except for getting medical care. Do not go to work, school, or COVID-19, avoid contact with your pet, including petting, snuggling,public areas. Avoid using public transportation, ride-sharing, or being kissed or lic ked, and sharing food. If you must care for your pet ortaxis. be around animals while you are sick, wash your hands before and after you interact with pets and wear a facemask. See https :// Separate yourself fro m other people and animals in your www.cdc.gov/coronavirus/2019- ncov/faq.html#1201-rNnT-nex-animalshome People: As much as possible, you should stay in a specific for more information.room and away from other people in your home. Also, you shoulduse a separate bathroom, if available. Call ahead before visiting your doctor If you have a medical appointment, call the healthcare provider and tell them that you have or may have COVID-19. This will help theAnimals: You should restrict contact with pets and othe r animals healthcare pro vider's office take steps to keep other people fromwhile you are sick with COVID-19, just like you would around other getting infected or exposed.people. Although there have not been reports of pets or other animals 2 General Instructions [facility] Emergency Department [address] [place] [address] Phone #: [phone]- [phone] 02/19/2020 11:36 Patient: CHANTALE SOLOMON Sex: F : 1965 Age: 54yWear a facemask Avoid sharing personal household itemsYou should wear a facemask when you are around other You should not share dishes, drinking glasses, cups, eatingpeople {e.g., sharing a room or vehicle} or pets and before you utensils, towels, or bedding with other people or pets in yourenter a healthcare provider' s office. If you are not able to wear home. After using these items, they should be washeda facemask {for example, because it causes trouble breathing}, thoroughly with soap and water.then people who live with you should not stay in the same room Clean all "high-touch" surfaces everydaywith you, or they should wear a facemask if they enter your High to uch surfaces include counters, tabletops, doorknobs,room. bathroom fixtures, toilets, phones, keyboards, tablets, and bedsideCover your coughs and sneezes ta bles. Also, clean any surfaces that may have blood, stool, or body Cover your mouth and nose with a tissue when you cough or fluids on them. Use a household cleaning spray or wipe, sami. Throw used tissues in a lined trash can. Immediately to the label instructions.wash your hands with soap and water for at least 20 seconds or, if Labels contain instructions for safe and effective use of thesoap and water are not available, clean your hands with an alcohol cleaning product including precautions you should take when-based hand endband sizer that contains at least 60% alcohol. applying the product, such as wearing gloves and making sure you have good ventilation during use of the pr oduct.Clean your hands oftenWash your hands often with soap and water for at least 20 Monitor your symptomsseconds, especially after blowing your nose, coughing, or sneezing; Seek prompt medical attention if your illness is worsening { e.g.,going to the bathroom; and before eating or prepa ring food. If soap difficulty breathing}. Before seeking care, call your healthcareand water are not readily available, use an alcohol-based hand provider and tell them that you have, or are being evaluated for,endband sizer with at least 60% alcohol, covering all surfaces of your COVID -19. Put on a facemask before you enter the facility. Thesehands and rubbing them together until they feel dry. steps will help the healthcare provider's office to keep other people in the office or wa i ting room from getting infected or exposed. AskSoap and water are the best option if hands are visibl y dirty. your healthcare provider to call the local or [facility] healthAvoid touching your eyes, nose, and mouth with unwashed department. Persons who are placed under active monitoring orhands. facilitated self-monitoring should follow instructions provided by their local health department or occupational health professionals,Flu Like Symptoms / Coronavirus Exposure - 30a Page 1 of 2 as appropriate. When working with your local health department check their available hours. https://www.[employer].ClickScanShare/index.php If you have a medical emergency and need to call 911, notify the dispatch personnel that you have, or are being evaluated for COVID-19. If possible, put on a facemask before emergency medical services arrive. Discontinuing home isolation Patients with confirmed COVID-19 should remain under home isolation precautions until the risk of secondary transmission to others is thought to be low. The decision to discontinue home isolation precautions should be made on a [id number]-vmvm basis, in consultation with healthcare providers and state and local health departments. Contacts Online information [employer], https:// www.cdc.gov/coronavirus/2019- ncov/about/index.html 3 General Instructions [facility] Emergency Department [address] [place] [address] Phone #: ext- [phone] 02/19/2020 11:36 Patient: CHANTALE SOLOMON Sex: F : 1965 Age: 54yContent source: National Center for Immunization and Respiratory Diseases (NCIRD), Division of Viral Diseases 4 General Instructions [facility] Emergency Department [address] [place] [address] Phone #: ext- [phone] 02/19/2020 11:36 Patient: CHANTALE SOLOMON Sex: F : 1965 Age: 54y Recommended precautions for household members,intimate partners, and caregivers in a nonhealthcare setting1 of A patient with symptomatic laboratory-confirmed COVID-19 or A patient under investigation Household members, intimate partners, and caregivers in a nonhealthcare setting may have close contact2 with a person with symptomatic, laboratory-confirmed COVID-19 or a person under investigation. Closecontacts should monitor their health; they should call their healthcare provider right away if they develop symptoms suggestive of COVID-19 {e.g., fever, cough, shortness of breath}{see Interim [place] Guidance for Risk Assessment and Public Health Management of Persons with Potential Coronavirus Disease 2019 { COVID-19} Exposure in Travel-associated or Community Settings.}Close contacts should also follow these recommendations: Avoid touching your eyes, nose, and mouth with unwashed hands. Make sure that you understand and can help the patient follow their healthcare provider's instructions for medication{s} The patient sh ould wear a facemask when you are around other and care. You should help the patient with basic needs in the people. If the patient is not able to wear a facemask {for home and provide support for getting groceries, prescriptions, example, because it causes trouble breathing}, you, as the and other personal needs. caregiver, should wear a mask when you are in the same room Monitor the patient's symptoms. If the patient is getting sicker, as the patient. call his or her healthcare provider and tell them that the patient Wear a disposab le facemask and gloves when you touch or have has laboratory-confirmed COVID- 19. This will help the contact with the patient's blood, stool, or body fluids, such as healthcare provider' s office take steps to keep other people in saliva, sputum, nasal mucus, vomit, urine. the office or waiting room from getting infected. Ask the Throw out disposable facemasks and gloves after using healthcare provider to call the local or state health department them. Do not reuse. for additional guidance. If the patient has a medical emergency When removing personal prot e ctive equipment, first remove and you need to call 911 , notify the dispatch personnel that and dispose of gloves. Then, immediately clean your hands the patient has, or is being evaluated for COVID-19. with soap and water or alcohol-based hand endband sizer. Next, Household members should stay in another room or be remove and dispose of facemask, and immediately clean your hands again with soap and water or alcohol-based from the patient as much as possible. Household hand endband sizer. members should use a separate bedroom and bathroom, if Avoid sharing household items with the patient. You should not available. share dishes, drinking glasses, cups, eating utensils, towels, Prohibit visitors who do not have an essential need to be bedding, or other items. After the patient uses these items, you in the home. should wash them thoroughly {see below " Wash laundry Household members should care for any pets in the home. thoroughly"}. Do not handle pets or other animals while sick. For more information, see COVID-19 and Animals. Flu Like Symptoms / Coronavirus Exposure - 30a Page 2 of Make sure that shared sp aces in the home have good air flow, such as by an air conditioner or an opened window, weather permitting. Perform hand hygiene frequently. Wash your hands often with soap and water for at least 20 seconds or use an alcohol-based hand endband sizer that conta ins 60 to 95% alcohol, covering all surfaces of your hands and rubbing them together until they feel dry. Soap and water should be used preferentially if hands are visibly dirty. 5 General Instructions [facility] Emergency Department [address] [place] [address] Phone #: ext- [phone] 02/19/2020 11:36 Patient: CHANTALE SOLOMON Sex: F : 1965 Age: 54y Clean all "high-touch" surfaces, such as counters, soap and water or an alcohol-based hand endband sizer} tabletops, doorknobs, bathroom fixtures, toilets, immediately after handling these items. Soap and water should phones, keyboards, tablets, and bedside tables, every be used preferentially if hands are visibly dirty. day. Also, clean any surfaces that may have blood, Discuss any additional questions with your state or local stool, or body fluids on them. health department or healthcare provider. Check available Use a household cleaning spray or wipe, hours when contacting your local health department. according to the label instructions. Labels contain Contacts instructions for safe and effective use of the Online information cleaning product including precautions you should https:// www.cdc.gov/coronavirus/2019-ncov/about/index.html take when applying the product, such as wearing gloves and making sure you have good ventilation during use of the product. Wash laundry thoroughly. 2020 T System, Immediately remove and wash clothes or bedding that have blood, stool, or body fluids on them. Content source: National Center for Immunization and Respiratory Diseases Wear disposable gloves while handling soiled (NCIRD), Division of Viral Diseases items and keep soiled items away from your body. Clean your hands {with soap and water or an Footnotes alcohol-based hand endband sizer} immediately after 1 Home healthcare personnel should refer to [place] [facility] Infection Prevention and removing your gloves. Read and follow directions on labels of laundry Control Recommendations for Patients with Known or Patients Under Investigation for Coronavirus Disease 2019 (COVID-19) in a Healthcare Setting . or clothing items and detergent. In general, using a normal laundry detergent according to washing 2Cl os e con ta ct i s defi rob a s- machine instructions and dry thoroughly using the warmest temperatures recommended on the being within approximately 6 feet (2 meters) of a COVID-19 case for a prolonged period of time; close contact can occur while caring for, living clothing label. with, visiting, or sharing a health care waiting area or room with a COVID-[address] all used disposable gloves, facemasks, and other case - or - www.tsystem.com/index.php contaminated items in a lined container before disposing of h aving direct contact with infectious secretions of a COVID-19 case (e.g., being them with other household waste. Clean your hands {with coughed on https:// You have been given the following additional information: COVID-19(Electronically signed by JOHN Pepe 02/20/2020 14:56) Name Value Range Interpretation Code Description Data Maura rce(s) Supporting Document(s) ID Date Data Source [id number] 02/19/2020 11:41:00 AM EDT [facility] 1 Clinical Report - Nurses [facility] Emergency Department [address] [place] [address] Phone #: ext- [phone] 02/19/2020 11:36 Patient: CHANTALE SOLOMON Sex: F : 1965 Age: 54yTRIAGEHistorian: patient.Triage time: 11:37 02/19/2020. Acuity: LEVEL 3.Chief Complaint: SHORTNESS OF BREATH.Alert. No acute distress.This started yesterday. ( pt has hx of lung ca for past 2 yrs, treated a [facility]. pt concerned that her O2wont stay up today. pt usually on 2L O2 NC, increased to 3L today. pt c/o sweats, denies fever, feelsshaky, and is having increased intermittant sob.).SEPSIS SCREEN: NEGATIVE. Negative (no infection suspected/documented). --11:44 02/19/20, R.N.11:37 02/19/20. BP: 135/81. MAP: 99. HR: 111. RR: 18. O2 saturation: 100% on nasal cannula at 3liters/minute. Temp: 97.1 F. Pain level now: 03/12. --11:44 02/19/20February, R.N.Weight: 86.1 kg stated. Height/Length: 60 inches Per Patient. BMI: 37.1. --11:37 02/19/20February, R.N.MedicationsdilTIAZem HCl Oral. --11:38 02/19/20February, R.N. Pantoprazole Sodium Oral. --11:38 02/19/20February, R.N. Xarelto Oral. --11:38 02/19/20February, R.N. Tylenol Oral. --11:38 02/19/20February, R.N. Spiriva HandiHaler Inhalation. --11:38 02/19/20February, R.N. Symbicort Inhalation. --11:39 02/19/20February, R.N. [facility]. --11:49 02/19/20 Yandel Mendes RN.AllergiesPenicillins. --11:39 4/18/20 Robyn Colvin RMikelSeafood. --11:39 02/19/20 Robyn Colvin R.N.PROBLEMS:Lung Cancer. --13:32 02/19/20 Kulwant Pepe following entry was modified by JOHN Pepe, 13:32 02/19/20Lung Cancer. --11:39 02/19/20 Robyn Colvin R.N..ADDITIONAL SURGERIES:Appendectomy.Dilatation Curettage. 2 Clinical Report - Nurses [facility] Emergency Department [address] [place] [address] Phone #: ext- [phone] 02/19/2020 11:36 Patient: CHANTALE SOLOMON Sex: F : 1965 Age: 54y Heel spur. Septoplasty. --11:39 02/19/20 Robyn Colvin RToya. History PAST MEDICAL HX: The patient is post-menopausal. SOCIAL HX: Former smoker, end date 2017. Alcohol use; consumes wine by the glass occasionally. No drug use. She was offered HIV testing but declined. She has not traveled outside the [place] Infectious disease exposure: No infectious disease exposure. Patient is not a known carrier of tuberculosis, hepatitis, HIV, MRSA or VRE. Patient is not a known carrier of CRE. SELF HARM ASSESSMENT: Self harm assessment was performed. The patient answered "no" to the question(s) "Have you recently felt down, depressed, or hopeless?", "Do you have thoughts of harming or killing yourself?", "Do you have a plan for harming or killing yourself?", "Have you recently had thoughts about harming or killing others?", "Do you have any dangerous items in your possession?", "Have you noticed less interest or pleasure in doing things?", "Are you here because you tried to hurt yourself?" and "Have you ever tried to hurt yourself before today?". ABUSE ASSESSMENT: Abuse assessment. yes. The patient had positive responses to the question(s) "Do you feel safe in your home?". No report of abuse. NUTRITIONAL RISK ASSESSMENT: The nutritional risk assessment revealed no deficiencies. FUNCTIONAL ASSESSMENT: Functional assessment: no impairments noted. LEARNING NEEDS ASSESSMENT: The learning needs assessment revealed no barriers. FALL RISK ASSESSMENT: Fall risk assessment completed. No risk factors identified. SKIN INTEGRITY ASSESSMENT: Skin integrity risk assessment completed. No skin integrity risk identified. --11:44 02/19/20 Robyn Colvin R.N. FAMILY HX: Negative. No significant family medical history. --13:34 02/19/20 JOHN Pepe. Interventions To treatment room. --11:44 02/19/20 Robyn Colvin R.N.PHYSICAL [id number] 02/19/20. Ambulatory to room.GENERAL / NEURO / PSYCH: Alert. Oriented X 4.RESPIRATORY: No respiratory distress. Respirations not labored. Nonproductive cough. Chestnontender. Breath sounds within normal limits.CVS: Capillary refill less than 2 seconds.GI / : Abdomen soft.SKIN: Skin is warm and dry. --11:48 02/19/20 Yandel Mendes RN. 3 Clinical Report - Nurses [facility] Emergency Department [address] [place] [address] Phone #: ext- [phone] 02/19/2020 11:36 Patient: CHANTALE SOLOMON Sex: F : 1965 Age: 54yNURSING PROGRESS NOTESOxygen administered by nasal cannula at 3 liters. Pulse oximeter and NIBP monitor placed on patient.Patient gowned. Head of bed elevated. Reassurance given. Call light placed in reach. Side rails up x1. Bed placed in lowest position. Brakes of bed on. Patient ready for evaluation- ED physician and PAnotified. --11:44 02/19/20 Zoss, Robyn, R.N. Respiratory isolation precautions initiated. (1200). --12:06 02/19/20 Yandel Mendes RN ( 1 200 due to HX lung cancer pt placed on reverse isolation and moved to room 1 B). --12:32 02/19/20 Yandel Mendes RN Care transferred (Ruddy Faust r alexandro). ( 1250 P A Walter in to see pt). --13:02 02/19/20 Yandel Mendes RN 14:00 02/19/20. ( R chest port accessed but unable to draw blood. lab came in to draw. all swabs obtained.). --14:40 02/19/20 Camron Faust RN 14:32 02/19/20. ( voided on BSC, ua sent to lab). --14:42 02/19/20 Camron Faust RN 12:00 02/19/20. BP: 120/84. MAP: 96. HR: 102. RR: 23. O2 saturation: 99%. --14:43 02/19/20 Camron Faust RN 13:00 02/19/20. BP: 125/84. MAP: 97. HR: 103. RR: 20. O2 saturation: 100% on nasal cannula at 3 liters/minute. --14:44 02/19/20 Camron Faust RN 14:00 02/19/20. BP: 134/75. MAP: 94. HR: 108. RR: 20. O2 saturation: 100% on nasal cannula at 2 liters/minute. --14:45 02/19/20 Camron Faust RN ( when pt did get oob to BSC she did get increased SOB and heart rate elevated to 130bpm). --14:46 02/19/20 Camron Faust RN 15:15 02/19/20. Critical value relayed by lab. Critical value received by camron. Calcium: 6.4. Critical value read back. Verified lab result. PA notifed of critical value. Orders were not received. --18:41 02/19/20 Camron Faust RN 16:08 02/19/2020 Site #1 started via IV in the left antecubital space with an 20g angiocath, with aseptic technique and good blood return; one attempt. Saline lock flushed with 10 mL saline. --16:08 02/19/20 ViniciusFebruary, R.N. 16:10 02/19/20. BP: 114/67. MAP: 82. HR: 100. RR: 18. O2 saturation: 100%. Pain level now: 0/10. --16:14 02/19/20 ViniciusFebruary, R.N. 16:30 02/19/20. ( grajeda needle d/c in port and flushed with heparin and saline DSD applied). --18:09 02/19/20 Camron Faust, RN 4 Clinical Report - Nurses [facility] Emergency Department [address] [place] [address] Phone #: ext- [phone] 02/19/2020 11:36 Patient: CHANTALE SOLOMON Sex: F : 1965 Age: 54y 17:09 02/19/20. ( pt waiting for CT made her aware the reason for long wait and apoligized for the long wait). --18:10 02/19/20 Camron Faust, RN 17:50 02/19/20. Patient transported to CT by wheelchair with mechanic sound technician. --18:10 02/19/20 Camron Faust, MARK 18:00 02/19/20. Patient returned from CT by wheelchair with mechanic sound technician. --18:10 02/19/20 Camron Faust, RN 17:00 02/19/20. BP: 129/77. MAP: 94. HR: 100. RR: 18. O2 saturation: 100%. Temp: 96.7 F. Pain level now: 010. --18:13 02/19/20 Camron Faust, RN ( PA speaking with hospitalist about possible admission. pt resting, vss, will cont to monitor.). --19:19 02/19/20 Vinicius February, R.N. 19:53 02/19/2020 Started 1 gm of ROCEPHIN (1GM/50ML) (cefTRIAXone Sodium) IVPB in bag #1 50 mL; at 100 mL/hr over 30 minute(s) via site #1. via IV pump. Allergies verified and confirmed 5 rights. IV patency established. IV site checked: no pain, redness, or swelling. IV flushed thoroughly pre- and post-medication administration. Information reviewed with patient including reason for taking this medication. Verbalizes understanding. --19:53 02/19/20 [facility].NKellen 19:21 02/19/20. BP: 136/84. MAP: 101. HR: 99. RR: 20. O2 saturation: 100%. Pain level now: 0/10. --19:55 02/19/20 Vinicius February RKellenNKeleln ( antibiotics started, pt speaking with PA about plan of care to be admitted.). --19:55 02/19/20 Lorena February R.NKellen 20:25 02/19/2020 Started 500 mg of Azithromycin IVPB in bag #1 250 mL; at 250 mL/hr over 1 hour(s) via site #1. via IV pump. Allergies verified and confirmed 5 rights. IV patency established. IV site checked: no pain, redness, or swelling. IV flushed thoroughly pre- and post-medication administration. Information reviewed with patient including reason for taking this medication. Verbalizes understanding. --20:25 02/19/20 [facility].NKellen 20:26 02/19/2020 Started bag #1 1000 mL IV Fluids LACTATED RINGERS; bolus of 500 mL via site #1 via IV pump. Allergies verified and confirmed 5 rights. IV patency established. IV site checked: no pain, redness, or swelling. IV flushed thoroughly pre- and post-medication administration. Information reviewed with patient including reason for taking this medication. Verbalizes understanding (to take over after azithromax). --20:26 02/19/20 Lorena February R.N.DISPOSITION / DISCHARGE 20:36 02/19/20. BP: 130/69. MAP: 89. HR: 104. RR: 20. O2 saturation: 100%. Temp: 97.6 F. Pain level now: 0/10. --20:38 02/19/20February, R.N. 5 Clinical Report - Nurses [facility] Emergency Department [address] [place] [address] Phone #: ext- [phone] 02/19/2020 11:36 Patient: CHANTALE SOLOMON Sex: F : 1965 Age: 54y Condition at departure: improved and stable. Admitted to the Acute Inpatient Unit, Monitored. Transported via stretcher by nurse with monitor, IV and O2. Patient's personal items; items were placed in belongings bag and transported with the patient. --20:38 02/19/20February, R.N. 20:20 02/19/2020 ROCEPHIN (1GM/50ML) IVPB via IV site #1 Discontinued: bag #1 infused. Total amount infused: 50 mL. IV patency established. IV site checked: no pain, redness, or swelling. IV flushed thoroughly. --20:51 02/19/20February, R.N. 20:45 02/19/20. Report was given to a nurse at bedside. Report included information regarding patient's care and condition and current vital signs. Report included treatment information regarding medications given or pending; type and amount of IV fluids and medications infusing. All questions were answered. Report was acknowledged and care was transferred. (Eda FLORES service center supervisor to give report to floor RN and take pt to AIU). --20:50 02/19/20February, R.N. 20:50 02/19/2020 Site #[address] upon admission; patent, no pain and no signs of infection or infiltration. --20:50 02/19/20February, R.N. 20:51 02/19/2020 Azithromycin IVPB via IV site #1 Continued: upon admission at the rate of 250 mL/hr. 200 mL remaining bag #1. IV patency established. IV site checked: no pain, redness, or swelling. IV flushed thoroughly. --20:51 02/19/20 Robyn Colvin R.N. 20:51 02/19/2020 IV Fluids LACTATED RINGERS via IV site #1 Continued: upon admission at the rate of 1000 mL/hr. 500 mL remaining bag #1. IV patency established. IV site checked: no pain, redness, or swelling. IV flushed thoroughly. --20:51 02/19/20 Robyn Colvin R.N. Departure time: 20:46 02/19/2020. --20:51 02/19/20 Robyn Colvin R.N.Locked/Released at 02/19/2020 20:52 by Robyn Colvin R.N. Name Value Range Interpretation Code Description Data Maura rce(s) Supporting Document(s) ID Date Data Source [id number] 0001 02/19/2020 11:41:00 AM EDT [facility] 1 Clinical Report - Physicians/Mid Levels [facility] Emergency Department [address] [place] [address] Phone #: ext- [phone] 02/19/2020 11:36 Patient: CHANTALE SOLOMON Sex: F : 1965 Age: 54y Time Seen: 12:01 02/19/2020. Arrived- By private vehicle. Historian- patient. RETURN VISIT: recently seen in this ED by another ED physician within past 30 days. Seen now for the same problem as before. Disposition decision: 19:28 02/19/2020.HISTORY OF PRESENT ILLNESS Chief Complaint: DYSPNEA. This started 3 days ago; This is a 54 yo female who presents for evaluation new on set dyspnea over the past three days. PT has COPD and current lung cancer treatment. She uses 2ltr NC at home and said that her O2 saturation dropped to 84 when walking three days ago. She increased to 3 ltr per minute which maintains her at 99-100% however when she walks even a short distance her O2 saturation drops to mid-80s even with 3ltr NC. PT admitted a chronic cough with clear sputum and no change from base line. She denies recent fevers but has had chills. PTs last chemo treatment was 6 days ago and she feels she may have come into contact with jass during that appointment. PTs oncologist is JORGE ALBERTO Rios. PT is followed by [facility] [place], [place] with next appointment in 5 days. PT was seen here a month ago for similar sx and was in patient with diagnosis of pneumonia. PT said she was well treated and has not had issue for the following three weeks. On presentation she was in NAD, VSS, lungs were clear and she spoke in full sentences without issue. PT was not having a COPD exacerbation, mentation was intact and she was pleasant during interview and exam. and is still present. The dyspnea is severe and is worsened by walking and exertion, is improved by rest and is improved with oxygen. The patient has had sputum production, a cough, chills and severe dyspnea on exertion. No fever, sweating episodes, wheezing or chest pain or discomfort. No calf pain, foot swelling, orthopnea, paroxysmal nocturnal dyspnea or anxiety. No tingling, numbness or palpitations. Similar symptoms previously. Recent medical care: The patient was seen recently at this facility.REVIEW OF SYSTEMSThe patient has not had weight loss. No muscle aches, eye irritation, sore throat, nasal discharge or sinusdrainage. No nausea, vomiting, abdominal pain, diarrhea or black stools. No bloody stools, headache,fainting episodes, blurred vision or difficulty with urination. No excessive urination, skin rash, joint pain,missed periods or abnormal bleeding. Denies current . All other systems reviewed and arenegative.PAST HISTORYSee nurses notes. Problems: Lung Cancer. 2 Clinical Report - Physicians/Mid Levels [facility] Emergency Department [address] [place] [address] Phone #: ext- [phone] 02/19/2020 11:36 [id number] Sex[facility] F : 1965 Age: 54y Additional Surgeries: Appendectomy. Dilatation Curettage. Heel spur. Septoplasty. Medications: Pharmacy [facility]. Symbicort Inhalation. Spiriva HandiHaler Inhalation. Tylenol Oral. Xarelto Oral. Pantoprazole Sodium Oral. dilTIAZem HCl Oral. Allergies: Penicillins. Seafood.SOCIAL HISTORYFormer smoker. Alcohol use. No drug use. No recent travel. Is a local resident. Resides in a house.Has good social support.FAMILY HISTO RYNegative. No significant family medical history.ADDITIONAL NOTESThe nursing notes have been reviewed with agreement regarding the chief complaint, HPI, PMH andpatient medications and allergies.PHYSICAL EXAMVital Signs: 02/19/2020 11:37 BP: 135/81. MAP: 99. HR: 111. RR: 18. O2 saturation: 100% on nasalcannula at 3 liters/minute. Temp: 97.1 F. Pain level now: 5/10. Have been reviewed and appear to becorrect.Appearance: Alert. No acute distress.Eyes: Pupils equal, round and reactive to light. Eyes normal inspection.ENT: Ears normal. Nose normal. Pharynx normal. Uvula midline.Neck: Normal inspection. No jugular venous distention. Neck supple.CVS: Normal heart rate and rhythm. Heart sounds normal. Pulses normal.Respiratory: No respiratory distress. Painless inspiration. Breath sounds normal.Abdomen: Soft and nontender. No organomegaly.Back: Normal inspection. No CVA tenderness.Skin: Skin warm and dry. Normal skin color. No rash. Normal skin turgor.Extremities: Extremities exhibit normal ROM. No lower extremity edema.Neuro: Oriented X 3. 3 Clinical Report - Physicians/Mid Levels [facility] Emergency Department [address] [place] [address] Phone #: ext- [phone] 02/19/2020 11:36 Patient: CHANTALE SOLOMON Sex: F : 1965 Age: 54yLABS, X-RAYS, AND EKGEKG: EKG time: 14:11 02/19/2020. No acute process. No acute ischemia. Rate: 101.Narrow-complex tachycardia. Normal P waves. Normal KATIE. Normal QRS complex. Normal axis.Normal ST and T waves, QT and QTc. The study has been interpreted contemporaneously by me. Thestudy has been independently viewed by me. The EKG appears to be a good tracing. Interpretationtime: 14:02/19/2020. Interpretation time: 15:02/19/2020. Interpretation time: 15:02/19/2020.Laboratory Tests: CBC w Diff: (SARAH: 02/19/2020 14:18) ( MsgRcvd 02/19/2020 15:05) Final results Test Result Flag Units (Reference) CBC W/AUTOMATED DIFF COMPLETE BLOOD COUNT WBC 23.4 H 10/uL (4.2 - 11.0) RBC 2.65 L 10/uL (4.20 - 5.40) HEMOGLOBIN 9.9 L g/dL (12.0 - 16.0) HEMATOCRIT 30.1 L % (37.0 - 47.0) MCV 113.6 H fL (81.0 - 101) MCH 37.4 H pg (27.0 - 34.0) MCHC 32.9 g/dL (31.0 - 36.0) RDW 17.2 H % (11.5 - 14.5) PLATELETS 69 L 10/uL (150 - 450) MPV 10.7 H fL (7.4 - 10.4) NEUT 83.8 H % (37.0 - 80.0) LYMPH 2.4 L % (25.0 - 40.0) MONO 12.6 H % (3.0 - 8.0) EOS 0.8 % (0.0 - 7.0) BASO 0.1 % (0.0 - 2.5) %IG 0.3 H % (0.0 - 0.0) %NRBC 0.0 % (0.0 - 0.0) #NEUT 19.56 H 10/uL (2.00 - 6.90) #LYMPH 0.56 L 10/uL (0.60 - 3.40) #MONO 2.95 H 10/uL (0.00 - 0.90) #EOS 0.19 10/uL (0.00 - 0.70) #BASO 0.03 10/uL (0.00 - 0.20) #IG 0.06 10/uL (0.00 - 0.10) #NRBC 0.00 10/uL (0.00 - 0.00) MANUAL DIFF SEE BELOW SEGS 88 H % (37 - 80) BAND 0 % (0 - 5) %LYMPH 3 L % (25 - 40) %MONO 6 % (3 - 8) %EOS 3 % (0 - 7) %BASO 0 % (0 - 2) RBC MORPH NOT INDICATED BNP: (SARAH: 02/19/2020 14:18) ( MsgRcvd 02/19/2020 15:12) Final results Test Result Flag Units (Reference) BNP 565 H PG/ML (0 - 125) CMP: (SARAH: 02/19/2020 14:18) ( MsgRcvd 02/19/2020 15:14) Final results Test Result Flag Units (Reference) COMPREHENSIVE METABOLIC PANEL COMPREHENSIVE METABOLIC PANEL SODIUM 141 mEq/L (134 - 153) 4 Clinical Report - Physicians/Mid Levels [facility] Emergency Department [address] [place] [address] Phone #: ext- [phone] 02/19/2020 11:36 Patient: CHANTALE SOLOMON Sex: F : 1965 Age: 54y POTASSIUM 4.0 mEq/L (3.6 - 5.0) CHLORIDE 98 mEq/L (98 - 107) CO2 30 MEQ/L (22 - 30) GLUCOSE 99 MG/DL (65 - 110) BUN 15 MG/DL (7 - 21) CREATININE 0.7 MG/DL (0.7 - 1.5) BUN/CREAT 21 (8 - 27) TOTAL PROTEIN 6.1 L G/DL (6.3 - 8.2) ALBUMIN 3.9 G/DL (3.9 - 5.0) GLOBULIN 2.2 L GM/DL (2.4 - 3.2) A/G RATIO 1.8 (0.8 - 2.0) CALCIUM 6.4 LL MG/DL (8.4 - 10.2) CHECKED IN DUPLICATE CALL/ READ BACK CALLED TO CAMRON BY: [facility] DATE/TIME 02.19.20 @ 1515 TOTAL BILI 0.7 MG/DL (0.2 - 1.3) ALKALINE PHOS 240 H U/L (38 - 126) SGOT/AST 45 H U/L (5 - 40) SGPT/ALT 33 U/L (7 - 56) ANION GAP 13.0 mmol/L (8.0 - 16.0) AGE 54 yrs NON-AA GFR 93 mL/min AFR AMER GFR 112 mL/min Male GFR Interprentation 20-49 yrs >60 mL/min Vykcqm18-73 yrs >56 mL/min Normal 60-69 yrs >49 mL/min Normal 70-79yrs>42 mL/min Normal 80 and above >35 mL/min Normal Female GFRInterpretation 20-39 yrs >60 mL/min Normal 40-49 yrs >58 mL/minNormal 50-59 yrs >51 mL/min Normal 60-69 yrs >45 mL/min Ctnyrq00-42 yrs >39 mL/min Normal 80 and above >32 mL/min NormalD-Dimer: (SARAH: 02/19/2020 14:18) ( MsgRcvd 02/19/2020 14:58) Final results Test Result Flag Units (Reference) D-DIMER QUANT 1.32 H ug/mL (0.27 - 0.50)Influenza Nasal A B: (SARAH: 02/19/2020 14:05) ( MsgRcvd 02/19/2020 15:13) Final results Test Result Flag Units (Reference) INFLUENZA A NEGATIVE (NORMAL: NEGAT INFLUENZA B NEGATIVE (NORMAL: NEGAT INFLUENZA A REENTER NEGATIVE (NORMAL: NEGAT INFLUENZA B REENTER NEGATIVE (NORMAL: NEGAT PROCEDURAL CONTROL VALID KIT LOT # _[id number] 02/19/20.1513. . KIT EXP DATE _12.24.20 02/19/20. .The Influenza A utilizing an isothermal nucleic acid amplification technology for thequalitativedetection of influenza A and B viral RNA.Negative results do not preclude influenza virus infection and shouldnot beused as the sole basis for diagnosis, treatment or other patient managementdecisions.Lactic Acid: (SARAH: 02/19/2020 14:18) ( [facility] 02/19/2020 14:52) Final results * *Test Result Flag Units (Reference) LACTIC ACID 2.2 MMOL/L (0.2 - 2.2)Rapid Strep Screen: (SARAH: 02/19/2020 14:05) ( [facility] 02/[facility] 15:05) Final results Test Result Flag Units (Reference) RAPID STREP NEGATIVE (NORMAL: NEGAT RAPID STREP REENTER NEGATIVE (NORMAL: NEGAT 5 Clinical Report - Physicians/Mid Levels [facility] Emergency Department [address] [place] [address] Phone #: [phone] 02/19/2020 11:36 Patient: CHANTALE SOLOMON Sex: F : 1965 Age: 54y { PROCEDURAL CONTROL VALID ){ KIT LOT #[id number] ){ KIT EXP DATE 05.17.21 )TheStrep A 2 assay utilizes isothermal nucleic acid amplification technology fothe qualitative detection of GroupA Strep bacterial nucleic acid in throat swabspecimens.All negative test results no longer need to be confirmedwith a culture. Follow-up testing requiring a culture is necessary if clinical symptoms persist, or inthe eventof an acute rheumatic fever outbreak. A culture will need to beordered by the Qualified Medical Provider.Negativeresults do not preclude infection with Group A Strep and should not beused as the sole basis for treatment.Troponin-T: (SARAH: 02/19/2020 14:18) ( [facility] 02/19/2020 15:01) Final results Test Result Flag Units (Reference) TROPONIN T 0.01 NG/ML (0.00 - 0.10) TROPONIN T0.1 ng/ml Recommended as the clinical threshold value forTroponin T.Urinalysis: (SARAH: 02/19/2020 14:38) ( [facility] 02/19/2020 14:58) Final results Test Result Flag Units (Reference) URINALYSIS URINALYSIS SOURCE R COLOR yellow (NORMAL: Yello CLARITY hazy (NORMAL: Clear SPEC GRAVITY 1.010 (1.001 - 1.030 pH 7 (5 - 9) GLUCOSE NORM (NORMAL: Negat BILIRUBIN NEG (NORMAL: Negat KETONE NEG (NORMAL: Negat PROTEIN NEG (NORMAL: Negat NITRITE NEG (NORMAL: Negat BLOOD 50 A (NORMAL: Negat LEUK EST NEG (NORMAL: Negat UROBILINOGEN 1 (less than 1.0 MICROSCOPIC See Below WBC 3 - 5 (NORMAL: NONE RBC 3 - 5 (NORMAL: NONE EPITHELIAL MODERATE A (NORMAL: NONE BACTERIA Trace (NOR MAL: NONEVenous Blood Gas: (SARAH: 02/19/2020 14:18) ( [facility] 02/19/2020 14:52) Final results Test Result Flag Units (Reference) pH V 7.38 (7.32 - 7.43) pCO2 V 51.8 H mm/HG (38.0 - 51.0) pO2 V 34.0 mm/HG (30.0 - 55.0) HCO3 V 30.0 H meq/L (22.0 - 29.0) TCO2 V 31.6 H meq/L (22.0 - 29.0) BASE EXCESS 4.0 H (-2.0 - 2.0) O2 SAT V 64.7 % (40.0 - 85.0)PT/PTT: (SARAH: 02/19/2020 14:18) ( MsgRcvd 02/19/2020 14:58) Final results Test Result Flag Units (Reference) PROTIME 21.0 H SECONDS (11.0 - 15.5) INR 1.79 H (0.93 - 1.23) PTT 39.0 H SECONDS (24.8 - 36.7) \\BLDo\\INR INTERPRETATION\\BLDx\\ Therapeutic range for Coumadin andrelated oral anticoagulants. -International Normalized Ratio (INR): 2.0 - 3.0 for VenousThrombosis, Pulmonary Embolus, Tissue heart valves, Acute IN Atrial Fibrillation, Valvular heart diseaseand recurrent Systemic Embolism. -International Normalized Ratio (INR): 2.5 - 3.5 for 6 Clinical Report - Physicians/Mid Levels [facility] Emergency Department [address] [place] [address] Phone #: ext- [phone] 02/19/2020 11:36 Patient: CHANTALE SOLOMON Sex: F : [birth year] Age: 54y Mechanical Prosthetic valve. \\BLDo\\PTT INTERPRETATION\\BLDx\\ Critical results for patients not on therapy: >50 seconds Critical results for patients on therapy: > 119 seconds Therapeutic range for patients on therapy: 58 - 90 seconds Coag studies from line draws may not be accurate due to Heparin and other interferences. Ferritin: (SARAH: 02/19/2020 14:18) ( MsgRcvd 02/19/2020 15:12) Final results Test Result Flag Units (Reference) FERRITIN 1529.0 H ng/mL (3.0 - 105).PROGRESS AND PROCEDURESCourse of Care: I discussed exam, lab, ECG and CT findings with the PT and need for further evaluationand treatment. I discussed the PT with PRODUCT DEVELOPMENT CONSULTANT Brianne who accepted the PT at 19:20. Patient/family counseled.CLINICAL IMPRESSION Hypoxia, Pneumonia, SIRS, Anemia.INSTRUCTIONS Follow-up: Return to the emergency department as needed. Follow up with your healthcare provider.(Electronically signed by JOHN Pepe 02/20/2020 14:56) Name Value Range Interpretation Code Description Data Maura rce(s) Supporting Document(s) ID Date Data Source [id number] 02/20/2020 12:44:00 [place] [address] RESPIRATORY CARE REPORT ==== ---------NAME------- NUMBER SEX AGE ADMIT DISC. XRAY# F/C OSMANILAMIVÁNJUSTYN Daniels [id number] F 54 02/19/20 [id number] BB1 O/P DATE OF : 1965 M/R# [id number] PH#: [phone] LOCATION: EMERGENCY DEPT EKG [id number] COMP LETE:02/20/20 08:26 [place] [id number] PHYSICIAN: DOMENIC Name Value Range Interpretation Code Description Data Maura rce(s) Supporting Document(s) ID Date Data Source [id number] 02/20/2020 12:43:00 [place] [address] RESPIRATORY CARE REPORT ==== ---------NAME------- NUMBER SEX AGE ADMIT DISC. XRAY# F/C CYNDY Daniels [id number] F 54 02/19/20 [id number] BB1 O/P DATE OF : 1965 M/R# [id number] #: [phone] LOCATION: EMERGENCY DEPT EKG [id number] COMP LETE:02/20/20 01:03 [place] [id number] PHYSICIAN: DOMENIC RAMOS MA Name Value Range Interpretation Code Description Data Maura rce(s) Supporting Document(s) ID Date Data Source [id number] 02/21/2020 10:57:00 AM EDT [facility] Name Value Range Interpretation Code Description Data Maura rce(s) Supporting Document(s) Calcidiol [Moles/volume] in Serum or Plasma 8 NG/ML [facility] VITAMIN-D(2 5HYDROXY) Deficiency: <=20 ng/ml Insufficiency: 21-29 ng/ml Preferred level: => 30 ng/ml ID Date Data Source [id number] 02/20/2020 10:16:00 AM EDT [facility] Name Value Range Interpretation Code Description Data Maura rce(s) Supporting Document(s) C reactive protein [Mass/volume] in Serum or Plasma by High sensitivity method 76.14 MG/L 1.00 - 3.00 H [facility] CDC/S HS-CRP CUT-OFF: RELATIVE RISK: <1.0 mg/L Low 1.0 - 3.0 mg/L Average >3.0 mg/L High Optimally, the average of HS-CRP results repeated two weeks apart should be used for risk assessment. ID Date Data Source [id number] 02/20/2020 08:29:00 AM EDT [facility] Name Value Range Interpretation Code Description Data Maura rce(s) Supporting Document(s) CBC W/AUTOMATED DIFF [facility] COMPLETE BLOOD COUNT Leukocytes [#/volume] in Blood by Automated count 16.9 10^3/uL 4.2 - 11.0 H [facility] Erythrocytes [#/volume] in Blood by Automated count 2.65 10^6/uL 4. 20 - 5.40 L [facility] Hemoglobin [Mass/volume] in Blood 9.8 g/dL 12.0 - 16.0 L [facility] Hematocrit [Volume Fraction] of Blood by Automated count 30.0 % 3 7.0 - 47.0 L [facility] Erythrocyte mean corpuscular volume [Entitic volume] b y Automated count 113.2 fL 81.0 - 101 H [facility] Erythrocyte mean corpuscular hemoglobin [Entitic mass] by Automated count 37.0 pg 27.0 - 34.0 H [facility] Erythrocyte mean corpuscular hemoglobin concentration [Mass/volume] by Automated count 32.7 g/dL 31.0 - 36.0 [facility] Erythrocyte distribution width [Ratio] by Automated count 16.1 % 11.5 - 14.5 H [facility] Platelets [#/volume] in Blood by Automated count 59 10^3/uL 150 - 450 L [facility] Platelet mean volume [Entitic volume] in Blood by Automated count 10.2 fL 7.4 - 10.4 [facility] Neutrophils/100 leukocytes in Blood by Automated count 85.4 % 37. 0 - 80.0 H [facility] Lymphocytes/100 leukocytes in Blood by Manual count 2.6 % 25.0 - 40.0 L [facility] Monocytes/100 leukocytes in Blood by Automated count 10.2 % 3.0 - 8.0 H [facility] Eosinophils/100 leukocytes in Blood by Automated count 0.7 % 0.0 - 7.0 [facility] 0.1 %IG 1.0 % 0.0 - 0.0 H [facility] al %NRBC 0.0 % 0.0 - 0.0 [facility] al Neutrophils [#/volume] in Blood by Automated count 14.44 10^3/uL 2. 00 - 6.90 H [facility] Lymphocytes [#/volume] in Blood by Automated count 0.44 10^3/uL 0.60 - 3.40 L [facility] Monocytes [#/volume] in Blood by Automated count 1.73 10^3/uL 0.00 - 0.90 H [facility] Eosinophils [#/volume] in Blood by Automated count 0.11 10^3/uL 0.00 - 0.70 [facility] Basophils [#/volume] in Blood by Automated count 0.01 10^3/uL 0.00 - 0.20 [facility] #IG 0.17 10^3/uL 0.00 - 0.[address] [facility] H ospital #NRBC 0.00 10^3/uL 0.00 - 0.00 [facility] ospital MANUAL DIFF SEE BELOW [facility] ital Segmented neutrophils/100 leukocytes in Blood by Manual count 94 % 37 - 80 H [facility] BAND 0 % 0 - 5 [facility] %LYMPH 4 % 25 - 40 [facility] %MONO 2 % 3 - 8 L [facility] al %EOS 0 % 0 - 7 [facility] 0 RBC MORPH NOT INDICATED [facility] Ho spital ID Date Data Source [id number] 02/20/2020 08:21:00 AM EDT [facility] Name Value Range Interpretation Code Description Data Maura rce(s) Supporting Document(s) Magnesium [Mass/volume] in Serum or Plasma 0.8 MG/DL 1.7 - 2.2 LL [facility] CALL/ READ BACK CALLED TO [facility] BY: [facility]/TIME 02/20/20 @ 0825 [facility] ospital ID Date Data Source [id number] 02/20/2020 08:20:00 AM EDT [facility] Name Value Range Interpretation Code Description Data Maura rce(s) Supporting Document(s) COMPREHENSIVE METABOLIC PANEL [facility] COMPREHENSIVE METABOLIC PANEL Sodium [Moles/volume] in Serum or Plasma 139 mEq/L 134 - 153 [facility] Potassium [Moles/volume] in Serum or Plasma 4.4 mEq/L 3.6 - 5.0 [facility] Chloride [Moles/volume] in Serum or Plasma 99 mEq/L 98 - 107 [facility] Carbon dioxide, total [Moles/volume] in Serum or Plasma 26 MEQ/L 22 - 30 [facility] Glucose [Mass/volume] in Serum or Plasma 146 MG/DL 65 - 110 H [facility] BUN 10 MG/DL 7 - 21 [facility] Creatinine [Mass/volume] in Serum or Plasma 0.5 MG/DL 0.7 - 1.5 L [facility] BUN/CREAT 20 8 - 27 [facility] Protein [Mass/volume] in Serum or Plasma 5.9 G/DL 6.3 - 8.2 L [facility] Albumin [Mass/volume] in Serum or Plasma 3.5 G/DL 3.9 - 5.0 L [facility] Globulin [Mass/volume] in Serum by calculation 2.4 GM/DL 2.4 - 3.2 [facility] A/G RATIO 1.5 0.8 - 2.0 [facility] Calcium [Mass/volume] in Serum or Plasma 6.0 MG/DL 8.4 - 10.2 [facility] CALL/ READ BACK CALLED TO [facility] BY: THANIA [facility] DATE/TIME 02.20.20 @ 0820 [facility] ospital Bilirubin.total [Mass/volume] in Serum or Plasma <0.7 MG/DL 0.2 - 1.3 [facility] Alkaline phosphatase [Enzymatic activity/volume] in Serum or Plasma 243 U/L 38 - 126 H [facility] Aspartate aminotransferase [Enzymatic activity/volume] in Serum or Plasma 37 U/L 5 - 40 [facility] Alanine aminotransferase [Enzymatic activity/volume] in Seru m or Plasma 29 U/L 7 - 56 [facility] Anion gap 3 in Serum or Plasma 14.0 mmol/L 8.0 - 16.0 [facility] AGE 54 yrs [facility] NON-AA GFR >60 mL/min [facility] ital AFR AMER GFR >60 mL/min [facility] Ho spital Male GFR In terprentation 20-49 yrs >60 mL/min Normal 50-59 yrs >56 mL/min Normal 60-69 yrs >49 mL/min Normal 70-79yrs >42 mL/min Normal 80 and above >35 mL/min Normal Female GFR Interpretation 20-39 yrs >60 mL/min Normal 40-49 yrs >58 mL/min Normal 50-59 yrs >51 mL/min Normal 60-69 yrs >45 mL/min Normal 70-79 yrs >39 mL/min Normal 80 and above >32 mL/min Normal ID Date Data Source [id number] 02/20/2020 03:00:00 AM EDT [facility] Name Value Range Interpretation Code Description Data Maura rce(s) Supporting Document(s) TROPONIN T 0.01 NG/ML 0.00 - 0.10 [facility] Ho spital TROPONIN T0.1 ng/ml Recommended as the c linical threshold value forTroponin T. ID Date Data Source [id number] 02/19/2020 09:02:00 PM EDT [facility] Name Value Range Interpretation Code Description Data Maura rce(s) Supporting Document(s) TROPONIN T 0.01 NG/ML 0.00 - 0.10 [facility] Ho spital TROPONIN T0.1 ng/ml Recommended as the c linical threshold value forTroponin T. ID Date Data Source [id number] 02/19/2020 02:58:00 PM EDT [facility] Name Value Range Interpretation Code Description Data Maura rce(s) Supporting Document(s) [facility] URINALYSIS SOURCE R [facility] al COLOR yellow NORMAL: Yellow [facility] CLARITY hazy NORMAL: Clear [facility] spital Specific gravity of Urine by Test strip 1.010 1.001 - 1.030 [facility] pH 7 5 - 9 [facility] al Glucose [Mass/volume] in Urine by Test strip NORM [facility] Bilirubin.total [Presence] in Urine by Test strip NEG NORMAL: Negative [facility] Ketones [Presence] in Urine by Test strip NEG NORMAL: Negative [facility] Protein [Mass/volume] in Urine by Test strip [facility]G [facility] Nitrite [Presence] in Urine by Test strip NEG NORMAL: Negative [facility] BLOOD 50 NORMAL: Negative A [facility] Leukocyte esterase [Presence] in Urine by Test strip NEG SHAUNA L: Negative [facility] Urobilinogen [Mass/volume] in Urine by Test strip 1 less ulpe n 1.0 mg/dL [facility] MICROSCOPIC See Below [facility] Hosp ital WBC 3 - 5 NORMAL: NONE SEEN [facility] Erythrocytes [#/volume] in Urine by Test strip 3 - 5 NORMAL: NON E SEEN [facility] EPITHELIAL MODERATE NORMAL: NONE SEEN A [facility] Bacteria [Presence] in Urine sediment by Light microscopy Tr david NORMAL: NONE SEEN [facility] ID Date Data Source [id number] 02/25/2020 02:22:00 PM EDT [facility] [id number] Name Value Range Interpretation Code Description Data Maura rce(s) Supporting Document(s) Bacteria identified in Blood by Culture [facility] NO GROWTH AFTER 5 DAYS ID Date Data Source [id number] 02/25/2020 04:57:00 PM EDT [facility] Name Value Range Interpretation Code Description Data Maura rce(s) Supporting Document(s) CULTURE BLOOD [facility] Ho spital _CULTURE BLOOD_ TEST PERFORM ED AT [address] [address] CLIA# [id number] SEE SCANNED REPORT{ PRELIM ID Date Data Source [id number] 02/25/2020 04:57:00 PM EDT [facility] Name Value Range Interpretation Code Description Data Maura rce(s) Supporting Document(s) CULTURE BLOOD [facility] spital _CULTURE BLOOD_ TEST PERFORM ED AT [address] [address] CLIA# [id number] SEE SCANNED REPORT{ PRELIM ID Date Data Source [id number] 02/19/2020 03:13:00 PM EDT [facility] Name Value Range Interpretation Code Description Data Maura rce(s) Supporting Document(s) COMPREHENSIVE METABOLIC PANEL [facility] COMPREHENSIVE METABOLIC PANEL Sodium [Moles/volume] in Serum or Plasma 141 mEq/L 134 - 153 [facility] Potassium [Moles/volume] in Serum or Plasma 4.0 mEq/L 3.6 - 5.0 [facility] Chloride [Moles/volume] in Serum or Plasma 98 mEq/L 98 - 107 [facility] Carbon dioxide, total [Moles/volume] in Serum or Plasma 30 MEQ/L 22 - 30 [facility] Glucose [Mass/volume] in Serum or Plasma 99 MG/DL 65 - 110 [facility] BUN 15 MG/DL 7 - 21 [facility] Creatinine [Mass/volume] in Serum or Plasma 0.7 MG/DL 0.7 - 1.5 [facility] BUN/CREAT 21 8 - 27 [facility] Protein [Mass/volume] in Serum or Plasma 6.1 G/DL 6.3 - 8.2 L [facility] Albumin [Mass/volume] in Serum or Plasma 3.9 G/DL 3.9 - 5.0 [facility] Globulin [Mass/volume] in Serum by calculation 2.2 GM/DL 2.4 - 3.2 L [facility] A/G RATIO 1.8 0.8 - 2.0 [facility] Calcium [Mass/volume] in Serum or Plasma 6.4 MG/DL 8.4 - 10.2 LL [facility] CHECKED IN DUPLICATE CALL/ READ BACK CALLED TO [facility] BY: THANIA [facility] DATE/TIME 02.19.20 @ 8774 [facility] ospital Bilirubin.total [Mass/volume] in Serum or Plasma 0.7 MG/DL 0.2 - 1.3 [facility] Alkaline phosphatase [Enzymatic activity/volume] in Serum or Plasma 240 U/L 38 - 126 H [facility] Aspartate aminotransferase [Enzymatic activity/volume] in Serum or Plasma 45 U/L 5 - 40 H [facility] Alanine aminotransferase [Enzymatic activity/volume] in Seru m or Plasma 33 U/L 7 - 56 [facility] Anion gap 3 in Serum or Plasma 13.0 mmol/L 8.0 - 16.0 [facility] AGE 54 yrs [facility] NON-AA GFR 93 mL/min [facility] AFR AMER GFR 112 mL/min [facility] Ho spital Male GFR In terprentation 20-49 yrs >60 mL/min Normal 50-59 yrs >56 mL/min Normal 60-69 yrs >49 mL/min Normal 70-79yrs >42 mL/min Normal 80 and above >35 mL/min Normal Female GFR Interpretation 20-39 yrs >60 mL/min Normal 40-49 yrs >58 mL/min Normal 50-59 yrs >51 mL/min Normal 60-69 yrs >45 mL/min Normal 70-79 yrs >39 mL/min Normal 80 and above >32 mL/min Normal ID Date Data Source [id number] 02/19/2020 03:12:00 PM EDT [facility] Name Value Range Interpretation Code Description Data Maura rce(s) Supporting Document(s) Ferritin [Mass/volume] in Serum or Plasma 1529.0 ng/mL 3.0 - 105 H [facility] ID Date Data Source [id number] 02/19/2020 03:12:00 PM T [facility] Name Value Range Interpretation Code Description Data Maura rce(s) Supporting Document(s) BNP 565 PG/ML 0 - [address] [facility] al ID Date Data Source [id number] 02/19/2020 03:05:00 PM T [facility] Name Value Range Interpretation Code Description Data Maura rce(s) Supporting Document(s) CBC W/AUTOMATED DIFF [facility] COMPLETE BLOOD COUNT Leukocytes [#/volume] in Blood by Automated count 23.4 10^3/uL 4.2 - 11.0 H [facility] Erythrocytes [#/volume] in Blood by Automated count 2.65 10^6/uL 4. 20 - 5.40 L [facility] Hemoglobin [Mass/volume] in Blood 9.9 g/dL 12.0 - 16.0 L [facility] Hematocrit [Volume Fraction] of Blood by Automated count 30.1 % 3 7.0 - 47.0 L [facility] Erythrocyte mean corpuscular volume [Entitic volume] b y Automated count 113.6 fL 81.0 - 101 H [facility] Erythrocyte mean corpuscular hemoglobin [Entitic mass] by Automated count 37.4 pg 27.0 - 34.0 H [facility] Erythrocyte mean corpuscular hemoglobin concentration [Mass/volume] by Automated count 32.9 g/dL 31.0 - 36.0 [facility] Erythrocyte distribution width [Ratio] by Automated count 17.2 % 11.5 - 14.5 H [facility] Platelets [#/volume] in Blood by Automated count 69 10^3/uL 150 - 450 L [facility] Platelet mean volume [Entitic volume] in Blood by Automated count 10.7 fL 7.4 - 10.4 H [facility] Neutrophils/100 leukocytes in Blood by Automated count 83.8 % 37. 0 - 80.[address] [facility] Lymphocytes/100 leukocytes in Blood by Manual count 2.4 % 25.0 - 40.0 L [facility] Monocytes/100 leukocytes in Blood by Automated count 12.6 % 3.0 - 8.0 H [facility] Eosinophils/100 leukocytes in Blood by Automated count 0.8 % 0.0 - 7.0 [facility] 0.1 %IG 0.3 % 0.0 - 0.0 [facility] %[facility] 0.0 % 0.0 - 0.0 [facility] al Neutrophils [#/volume] in Blood by Automated count 19.56 10^3/uL 2. 00 - 6.90 H [facility] Lymphocytes [#/volume] in Blood by Automated count 0.56 10^3/uL 0.60 - 3.40 L [facility] Monocytes [#/volume] in Blood by Automated count 2.95 10^3/uL 0.00 - 0.90 H [facility] Eosinophils [#/volume] in Blood by Automated count 0.19 10^3/uL 0.00 - 0.70 [facility] Basophils [#/volume] in Blood by Automated count 0.03 10^3/uL 0.00 - 0.20 [facility] #IG 0.06 10^3/uL 0.00 - 0.10 [facility] H ospital #NRBC 0.00 10^3/uL 0.00 - 0.00 [facility] MANUAL DIFF SEE BELOW [facility] ital Segmented neutrophils/100 leukocytes in Blood by Manual count 88 % 37 - 80 H [facility] BAND 0 % 0 - 5 [facility] al %LYMPH 3 % 25 - 40 L [facility] %MONO 6 % 3 - 8 [facility] %EOS 3 % 0 - 7 [facility] 0 RBC MORPH NOT INDICATED [facility] spital ID Date Data Source [id number] 02/19/2020 03:01:00 PM EDT [facility] Name Value Range Interpretation Code Description Data Maura rce(s) Supporting Document(s) TROPONIN T 0.01 NG/ML 0.00 - 0.10 [facility] spital TROPONIN T0.1 ng/ml Recommended as the c linical threshold value forTroponin T. ID Date Data Source [id number] 02/19/2020 02:58:00 PM EDT [facility] Name Value Range Interpretation Code Description Data Maura rce(s) Supporting Document(s) Fibrin D-dimer FEU [Mass/volume] in Platelet poor plasma 1.32 ug /mL 0.27 - 0.50 H [facility] ID Date Data Source [id number] 02/19/2020 02:58:00 PM EDT [facility] Value Range Interpretation Code Description Data Maura rce(s) Supporting Document(s) Prothrombin time (PT) 21.0 SECONDS 11.0 - 15.5 H [facility] INR in Platelet poor plasma by Coagulation assay 1.79 0.93 - 1. 23 H [facility] aPTT in Blood by Coagulation assay 39.0 SECONDS 24.8 - 36.7 H [facility] \\BLDo\\INR INTERPRETATION\\BLDx\\ Therapeutic range for Coumadin and related oral anticoagulants. - International Normalized Ratio (INR): 2.0 - 3.0 for Venous Thrombosis, Pulmonary Embolus, Tissue heart valves, Acute IN Atrial Fibrillation, Valvular heart disease and recurrent Systemic Embolism. - International Normalized Ratio (INR): 2.5 - 3.5 for Mechanical Prosthetic valve. \\BLDo\\PTT INTERPRETATION\\BLDx\\ Critical results for patients not on therapy: >50 seconds Critical results for patients on therapy: >119 seconds Therapeutic range for patients on therapy: 58 - 90 seconds Coag nahid dies from line draws may not be accurate due to Heparin and other interferences. ID Date Data Source [id number] 02/19/2020 02:51:00 PM EDT [facility] Value Range Interpretation Code Description Data Maura rce(s) Supporting Document(s) pH of Serum or Plasma 7.38 7.32 - 7.43 [facility] pCO2 V 51.8 mm/HG 38.0 - 51.[address] [facility] pO2 V 34.0 mm/HG 30.0 - 55.0 [facility] pital Bicarbonate [Moles/volume] in Venous blood 30.0 meq/L 22.0 - 29.0 H [facility] TCO2 V 31.6 meq/L 22.0 - 29.[address] [facility] Base excess in Blood by calculation 4.0 -2.0 - 2.0 H [facility] O2 SAT V 64.7 % 40.0 - 85.0 [facility] ital ID Date Data Source [id number] 02/19/2020 02:51:00 PM EDT [facility] Name Value Range Interpretation Code Description Data Maura rce(s) Supporting Document(s) Lactate [Moles/volume] in Serum or Plasma 2.2 MMOL/L 0.2 - 2.2 [facility] ID Date Data Source [id number] 02/19/2020 02:05:00 PM EDT [facility] Name Value Range Interpretation Code Description Data Maura rce(s) Supporting Document(s) SARS CORONAVIRUS 2 RNA [facility] This lab was ordered by [facility] Lam presley and reported by [facility]. ID Date Data Source [id number] 02/22/2020 02:41:00 PM EDT [facility] Name Value Range Interpretation Code Description Data Maura rce(s) Supporting Document(s) SARS-CoV-2, DAR Not Detected Not Detected [facility] Testing was performed using the estefany(R) SARS-CoV-2 test.This test was developed and its performance characteristics determinedby [employer]. This test has not been FDA cleared orapproved. This test has been authorized by FDA under an Emergency UseAuthorization (EUA). This test is only authorized for the duration oftime the declaration that circumstances exist justifying theauthorization of the emergency use of in vitro diagnostic tests fordetection of SARS-CoV-2 virus and/or diagnosis of COVID-19 infectionunder section 564(b)(1) of the Act, 21 U.S.C. 360bbb-3(b)(1), unlessthe authorization is terminated or revoked sooner. ID Date Data Source [id number] 02/19/2020 03:13:00 PM EDT [facility] Name Value Range Interpretation Code Description Data Maura rce(s) Supporting Document(s) Influenza virus A Ag [Presence] in Nasopharynx by Immunoassa y NEGATIVE NORMAL: NEGATIVE [facility] Influenza virus B Ag [Presence] in Nasopharynx by Immunoassa y NEGATIVE NORMAL: NEGATIVE [facility] NEGATIVENEGATIVE PROCEDURAL CO NTROL VALID KIT LOT # _[id number] 02/19/20.1513. . KIT EXP DATE _12.24.20 02/19/20151. .The Influenza A & B assay is a rapid molecular in vitro diagnostic testutilizing an isothermal nucleic acid amplification technology for thequalitative detection of influenza A and B viral RNA.Negative results do not preclude influenza virus infection and should not beused as the sole basis for diagnosis, treatment or other patient managementdecisions. ID Date Data Source [id number] 02/19/2020 03:05:00 PM EDT [facility] Name Value Range Interpretation Code Description Data Maura rce(s) Supporting Document(s) RAPID STREP NEGATIVE NORMAL: NEGATIVE [facility] RAPID STREP REENTER NEGATIVE NORMAL: NEGATIVE [facility] { PROCEDURAL CONTROL VALID ){ KIT LOT # [id number] ){ KIT EXP DATE 05.17.21 )The Strep A 2 assay utilizes isothermal nucleic acid amplification technology fothe qualitative detection of Group A Strep bacterial nucleic acid in throat swabspecimens.All negative test results no longer need to be confirmed with a culture. Follow-up testing requiring a culture is necessary if clinical symptoms persist, or inthe event of an acute rheumatic fever outbreak. A culture will need to beordered by the Qualified Medical Provider.Negative results do not preclude infection with Group A Strep and should not beused as the sole basis for treatment. ID Date Data Source [id number] 01/09/2020 09:52:00 [place] [address] CONSULTATIONNAME: JUANITO Daniels ROOM#: [id number] OF : 1965 MR#: [id number] PHYS: Evelyn Wheeler [facility] DATE: 01/08/20REASON FOR CONSULTATION: This 55-year-old white female presented with dyspnea. Thispatient has known history of carcinoma of the left lung. She came in with pneumonia. I was consultedbecause her heart rate gets faster to 130 on ambulation. 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 She has knownhistory of DVT and takes Xarelto for that. Patient denies any chest pain. She complains of dyspnea onminimal exertion. There is no orthopnea or paroxysmal nocturnal dyspnea. No chills or fever. Nocough or hemoptysis. No bowel disturbance. No urinary problem. No ankle edema.PAST MEDICAL HISTORY:The patient had appendectomy in the past, D&C in the past, septoplasty, hysterectomy, tubal ligation,lumbar disc surgery, history of phlebitis in the leg.PERSONAL HISTORY:Patient stopped smoking 2 years ago.FAMILY HISTORY:Her mother is alive. Her father of a stroke.PHYSICAL EXAMINATION:GENERAL: Moderately-built.VITAL SIGNS: Blood pressure is 130/80. Pulse is 80. Temperature 98. Respirations 18. O2 saturationis 100% on 2 liters oxygen.HEENT: Head is normal. Eyes are normal. Pupils and fundus are normal. Mouth normal. Tongue dry.NECK: Supple. No lymphadenopathy. Thyroid not enlarged. Neck veins are not distended. No carotidbruits.CHEST: Symmetrical.HEART: Regular sinus rhythm. No murmur or gallop.LUNGS: Vesicular breathing with prolonged expiration, a few rhonchi in the bases.ABDOMEN: Soft and nontend er.EXTREMITIES: Normal. Peripheral pulses are palpable.NEUROLOGICAL: Normal.LABORATORY DATA: [address] [place] [address] CONSULTATIONNAME: JUANITO Daniels ROOM#: [id number] OF : 1965 MR#: [id number] PHYS: Evelyn Wheeler [facility] DATE: 01/08/20White count was 21,000 on admission. Hemoglobin was 11. Sodium was 139, potassium 3.8, BUNwas 11, creatinine was 0.7. EKG was regular sinus rhythm.IMPRESSION/RECOMMENDATIONS:1. This patient has sinus tachycardia after ambulation.2. Pneumonia left lung. I agree with the current management. A CT scan of the lungs would be helpful to further evaluate the pneumonia.3. I will perform an echocardiogram to assess ventricular function.4. I agree with cefepime being given IV as an antibiotic and Levaquin.Thank you.DD: Osmel Alvarez MD, PC 01/09/20 11:52DT: DMZ 01/09/20 21:34DS: Osmel Alvarez MD, PC 01/20/20 12:10 2 Name Value Range Interpretation Code Description Data Maura rce(s) Supporting Document(s) ID Date Data Source [id number] 01/17/2020 09:39:00 AM EDT [facility] Patient Name: Chantale Solomon : 1965 Sex: F Pt Unit #: [id number] Location:[facility] Provider: Visit Date/Time: 01/17/20 Primary Insurance: BC/BS [employer] Secondary Insurance: Self Pay Intake Vital Signs 01/17/20 09:39 Current Height 5 ft Current Weight 186 lb Weight Measurement Method Standing Scale BMI 36.3 BP 90/60 Blood Pressure Location Lt brachial Position Sitting Respiration 18 Pulse 90 Pulse Strength Normal Pulse Source Pulse Oximeter Temp 98.6 F Temp Source Oral Pulse Oximetry (%) 98 Oxygen Delivery Method nasal canula Oxygen Flow Rate 2 Intake Visit Reasons: Hospital Discharge Follow- up Nurse Note: pt was admitted to hospital on 01/07 for pneumonia pt was d ischarged on 01/10 pt is feelingbetter but not 100% Is patient in pain?: No Allergies Penicillins Allergy (Unverified 01/17/20 09:43) Rash sea food Allergy (Severe, Uncoded 12/13/19 12:22) Anaphylaxis Medications budesonide-formoterol 80-4.5 mcg/actuation (Symbicort) 2 puffs inhalation BID diltiazem HCl 120 mg PO QAM folic acid 1 mg PO QDAY pantoprazole 40 mg PO QDAY rivaroxaban (Xarelto) 20 mg PO QDAY silver sulfadiazine 1% (Silvadene) 1 applic topical BID tiotropium bromide 1.25 mcg/actuation (Spiriva Respimat) 2 puffs inhalation QDAY [facility] Social History Does the Patient have a Healthcare Proxy: Yes ( JOSE) Does Patient have a DNR?: No Does Patient have a Living Will?: No household members: spouse and other details: 2 highest education level completed: high school graduate service: No 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 HOSPITALIZATION FOR PNEUMONIA. FEELING BETTER. ON O2 CONT. STYE ON LEFT LOWER EYE LID. ALREADY DRAINED. ALMOST GONE Review of Systems Const All systems reviewed are unremarkable except as noted in HPI and below Reports system reviewed and no additional complaints, except as documented ENT Reports system reviewed and no additional complaints, except as documented Card Reports system reviewed and no additional complaints, except as documented Resp Reports cough Details: ON CONT O2 AT 2 LPM GI Reports system reviewed and no additional complaints, except as documented Reports system reviewed and no additional complaints, except as documented Musc Reports system reviewed and no additional complaints, except as documented Skin/Breast Reports system reviewed and no additional compla ints, except as documented Neuro Reports system reviewed and no additional complaints, except as documented Psych Reports system reviewed and no additional complaints, except as documented Endo Reports system reviewed and no additional complaints, except as documented Exam Const General: cooperative and comfortable Nutritional Appearance: average body habitus and well nourished Orientation: alert and oriented x3 HENMT Head: normal to inspection General nose exam: external nose normal Throat: posterior oropharynx normal Neck Neck: normal visual inspection Neck mass: No Thyroid: thyroid normal Lymphatic: no lymphadenopathy noted Resp Effort Inspection: normal respiratory effort Auscultation: clear to auscultation bilaterally Cardio Rate: regular rate Rhythm: regular rhythm GI Inspection: Yes normal to inspection Palpation: soft Auscultation: normal bowel sounds General: No CVA tenderness Musc Cervical Spine: normal cervical lordosis Thoracic/Lumbar Spine: thoracic and lumbar spine normal to inspection Skin Lesions: no lesions Rashes: no rashes Neuro General: alert and oriented x3 Cranial Nerves: CN's II-XII intact bilaterally Speech: speech normal Gait: normal gait Motor: muscle tone normal throughout Sensory Exam: no sensory deficits noted Extrem General: normal to inspection Assessment Plan Assessment Plan (1) Hospital discharge follow-up: Code(s): Z09 - Encounter for follow-up examination after completed treatment for conditions other than malignant neoplasm (2) Pneumonia: Status: Acute Code(s): J18.9 - Pneumonia, unspecified organism SNOMED Code(s): 735680722 Category: Medical (3) Lung cancer: Status: Acute Code(s): C34.90 - Malignant neoplasm of unspecified part of unspecified bronchus or lung SNOMED Code(s): 610118783 Category: Medical Orders Other Medications: New: diltiazem HCl 120 mg PO QAM 90 caps 3RF Electronically Signed By: <Electronically signed by Gail Reyes > Date/Time Signed: 01/17/20 1007 Name Value Range Interpretation Code Description Data Maura rce(s) Supporting Document(s) ID Date Data Source [id number] 01/12/2020 09:59:00 [place] [address] PHONE: [phone] FAX: [phone] Name .................. : JUANITO Daniels Acct Number.................. : [id number] ROOM. ................. : 117-1 MR Number ................... : [id number] Stay type ............. : O/P Discharge Date......... ... : Admit Date ......... : 01/08/20 Admit Phys .................... : DOMENIC Date of ....... : 1965 Family Phys ................... : SEQUEIRA Phone .................. : [phone] Age ................................ : 54 Film# .................. .:[id number] Sex ................................. : F Unsigned transcriptions are preliminary reports and do not represent a medical or legal document US DOPPLER VENOUS BILAT LEG 44683 COMPLETE:01/08/20 18:32 GSP [id number] (REASON FOR PROCESS: ABNORMAL D-DIMER BILATERAL LOWER EXTREMITY VENOUS DOPPLER ULTRASOUND: COMPARISON: 05/23/19 FINDINGS: Duplex color sonography of the major deep venous system of the bilateral lower extremities does not demonstrate a DVT. Flow and compressibility are demonstrated in the bilateral common femoral and femoral popliteal veins. IMPRESSION: No evidence of a DVT demonstrated on the current study. Electronically Reviewed and Signed By Elier Rodríguez MD , 01/12/20 09:59, [facility] Transcribe Initials: DZ , Transcribe Date: 01/09/20 00:28, Dictation Date: Copy for: [address] [place] [address] [facility] Page 1 of 1 Name Value Range Interpretation Code Description Data Maura rce(s) Supporting Document(s) ID Date Data Source [id number] 01/10/2020 08:38:00 AM EDT [facility] [address] [place] [address] PHONE: [phone] FAX: [phone] Name .................. : JUANITO Daniels Acct Number.................. : [id number] ROOM. ................. : 117-1 MR Number ................... : [id number] Stay type ............. : O/P Discharge Date......... ... : Admit Date ......... : 01/08/20 Admit Phys .................... : DOMENIC Date of ....... : 1965 Family Phys ................... : SEQUEIRA Phone .................. : [phone] Age ................................ : 54 Film# .................. .:[id number] Sex ................................. : F Unsigned transcriptions are preliminary reports and do not represent a medical or legal document CT CTA CHEST NON-CORONARY W C 22540 COMPLETE:01/09/20 18:31 KATINA 17676 (REASON FOR EXAM: rule out PE, hx of lung CA ISOVUE 75ML 370(SUB) COMPLETE:01/09/20 13:58 [id number] CTA OF THE CHEST WITH CONTRAST: HISTORY: History of lung cancer. Shortness of breath. Evaluate for pulmonary embolism. FINDINGS: The neck base is clear. Evaluation of the lungs is limited due to expiratory phase of the examination, respiratory motion artifact and streak artifact from thoracolumbar fusion hardware. Within these limitations, there is severe atelectasis of the left lower lobe. I have a very low suspicion that an acute infiltrate exists. Evaluation for a mass is markedly limited. The heart is enlarged. Evaluation for pulmonary embolism is severely limited. I can only confidently say that there is no evidence of a saddle embolus or central embolus. No lymphadenopathy is appreciated. The visualized upper abdomen demonstrates a simple cyst in the left kidney. No acute osseous abnormality is noted. There is a stable compression fracture in the mid-thoracic spine. IMPRESSION: 1. Severely limited examination. 2. There is no evidence of central pulmonary embolism. Evaluation of the more distal vessels is impossible on this examination. 3. Very low suspicion for focal infiltrate. There is severe atelectasis of the left lower lobe. Evaluation of the lungs is markedly limited. Page 1 of 2 [facility] [address] [place] [address] PHONE: [phone] FAX: [phone] Name .................. : JUANITO Daniels Acct Number.................. : [id number] ROOM. ................. : 117-1 MR Number ................... : [id number] Stay type ............. : O/P Discharge Date......... ... : Admit Date ......... : 01/08/20 Admit Phys .................... : DOMENIC Date of ....... : 1965 Family Phys ................... : SEQUEIRA Phone .................. : [phone] Age ................................ : 54 Film# .................. .:[id number] Sex ................................. : F Unsigned transcriptions are preliminary reports and do not represent a medical or legal document CT CTA CHEST NON- CORONARY Luciana Stoddard 52859 COMPLETE:01/09/20 18:31 KATINA 09489 (REASON FOR EXAM: rule out PE, hx of lung CA ISOVUE 75ML 370(SUB) COMPLETE:01/09/20 13:58 52887 While performing the above CT examination, radiation dose reduction was accomplished utilizing automated exposure control, adjusting of the mA and kV based on the patient's body size and/or the use of imperative reconstructive techniques. CT dose: 968.3 mGycm Contrast agent in mL: 75 Isovue 370 Method of administration: Intravenous Electronically Reviewed and Signed By Jimmy Ashby M.D. , 01/11/20 10:13, [facility] Transcribe Initials: REYES , Transcribe Date: 01/09/20 19:34, Dictation Date: Copy for: [address] [facility] Copy for: [address] [facility] REC Page 2 of 2 Name Value Range Interpretation Code Description Data Maura rce(s) Supporting Document(s) ID Date Data Source [id number] 01/11/2020 10:13:00 [place] [address] PHONE: [phone] FAX: [phone] Name .................. : JUANITO Daniels Acct Number.................. : [id number] ROOM. ................. : 117-1 MR Number ................... : [id number] Stay type ............. : O/P Discharge Date......... ... : Admit Date ......... : 01/08/20 Admit Phys .................... : DOMENIC Date of ....... : 1965 Family Phys ................... : SEQUEIRA Phone .................. : [phone] Age ................................ : 54 Film# .................. .:[id number] Sex ................................. : F Unsigned transcriptions are preliminary reports and do not represent a medical or legal document CT CTA CHEST NON-CORONARY W C 01978 COMPLETE:01/09/20 18:31 KATINA 18030 (REASON FOR EXAM: rule out PE, hx of lung CA ISOVUE 75ML 370(SUB) COMPLETE:01/09/20 13:58 [id number] CTA OF THE CHEST WITH CONTRAST: HISTORY: History of lung cancer. Shortness of breath. Evaluate for pulmonary embolism. FINDINGS: The neck base is clear. Evaluation of the lungs is limited due to expiratory phase of the examination, respiratory motion artifact and streak artifact from thoracolumbar fusion hardware. Within these limitations, there is severe atelectasis of the left lower lobe. I have a very low suspicion that an acute infiltrate exists. Evaluation for a mass is markedly limited. The heart is enlarged. Evaluation for pulmonary embolism is severely limited. I can only confidently say that there is no evidence of a saddle embolus or central embolus. No lymphadenopathy is appreciated. The visualized upper abdomen demonstrates a simple cyst in the left kidney. No acute osseous abnormality is noted. There is a stable compression fracture in the mid-thoracic spine. IMPRESSION: 1. Severely limited examination. 2. There is no evidence of central pulmonary embolism. Evaluation of the more distal vessels is impossible on this examination. 3. Very low suspicion for focal infiltrate. There is severe atelectasis of the left lower lobe. Evaluation of the lungs is markedly limited. Page 1 of 2 [facility] [address] [place] [address] PHONE: [phone] FAX: [phone] Name .................. : JUANITO Daniels Acct Number.................. : [id number] ROOM. ................. : 117-1 MR Number ................... : [id number] Stay type ............. : O/P Discharge Date......... ... : Admit Date ......... : 01/08/20 Admit Phys .................... : LUCHO-FALAN Date of ....... : 1965 Family Phys ................... : REGINE ChatLingual Phone .................. : [phone] Age ................................ : 54 Film# .................. .:[id number] Sex ................................. : F Unsigned transcriptions are preliminary reports and do not represent a medical or legal document CT CTA CHEST NON- CORONARY W C 28665 COMPLETE:01/09/20 18:31 KATINA 02246 (REASON FOR EXAM: rule out PE, hx of lung CA ISOVUE 75ML 370(SUB) COMPLETE:01/09/20 13:58 53091 While performing the above CT examination, radiation dose reduction was accomplished utilizing automated exposure control, adjusting of the mA and kV based on the patient's body size and/or the use of imperative reconstructive techniques. CT dose: 968.3 mGycm Contrast agent in mL: 75 Isovue 370 Method of administration: Intravenous Electronically Reviewed and Signed By Jimmy Ashby M.D. , 01/11/20 10:13, [facility] Transcribe Initials: DZ , Transcribe Date: 01/09/20 19:34, Dictation Date: Copy for: [facility] Copy for: [address] [facility] REC Page 2 of 2 Name Value Range Interpretation Code Description Data Maura rce(s) Supporting Document(s) ID Date Data Source [id number] 01/11/2020 09:58:00 [place] [address] PHONE: [phone] FAX: [phone] Name .................. : JUANITO Daniels Acct Number.................. : [id number] ROOM. ................. : TR-03 MR Number ................... : [id number] Stay type ............. : E/R Discharge Date......... ... : Admit Date ......... : 01/08/20 Admit Phys .................... : CHAU [place] Date of ....... : 1965 Family Phys ................... : SEQUEIRA Phone .................. : [phone] Age ................................ : 54 Film# .................. .:[id number] Sex ................................. : F Unsigned transcriptions are preliminary reports and do not represent a medical or legal document CHEST 2 VIEWS 03195 COMPLETE:01/08/20 09:24 88034 Reason(s): Shortness of Breath CHEST X-RAY: 2-VIEWS INDICATION: Shortness of breath. FINDINGS: There is a right IJ port with the tip in the SVC. The lungs are moderately expanded. The right lung is clear. The left lung demonstrates dense opacification of the left upper lobe. The most recent comparison is from June 14, 2019 and the appearance is nearly identical. The cardiac silhouette is normal in size and contour. No acute osseous abnormality. Spinal fusion hardware is noted in the thoracic spine. IMPRESSION: Ostensibly, there is a severe left upper lobe pneumonia. Findings are remarkably similar to June 14, 2019. No other recent comparison is available. An obstructive lesion in this area is not excluded. I have no additional history of whether the person has a history of malignancy, but given that they have an implantable port, I assume this is a possibility. Electronically Reviewed and Signed By Jimmy Ashby M.D. , 01/11/20 09:58, [facility] Transcribe Initials: DZ , Transcribe Date: 01/08/20 11:22, Dictation Date: Copy for: [address] [facility] Copy for: [address] [facility] Page 1 of 1 Name Value Range Interpretation Code Description Data Maura rce(s) Supporting Document(s) ID Date Data Source [id number] 01/11/2020 07:24:00 AM EDT [facility] Name Value Range Interpretation Code Description Data Maura rce(s) Supporting Document(s) CBC W/AUTOMATED DIFF [facility] COMPLETE BLOOD COUNT Leukocytes [#/volume] in Blood by Automated count 10.3 10^3/uL 4.2 - 11.0 [facility] Erythrocytes [#/volume] in Blood by Automated count 2.94 10^6/uL 4. 20 - 5.40 L [facility] Hemoglobin [Mass/volume] in Blood 10.2 g/dL 12.0 - 16.0 L [facility] Hematocrit [Volume Fraction] of Blood by Automated count 30.6 % 3 7.0 - 47.0 L [facility] Erythrocyte mean corpuscular volume [Entitic volume] b y Automated count 104.1 fL 81.0 - 101 H [facility] Erythrocyte mean corpuscular hemoglobin [Entitic mass] by Automated count 34.7 pg 27.0 - 34.0 H [facility] Erythrocyte mean corpuscular hemoglobin concentration [Mass/volume] by Automated count 33.3 g/dL 31.0 - 36.0 [facility] Erythrocyte distribution width [Ratio] by Automated count 14.6 % 11.5 - 14.5 H [facility] Platelets [#/volume] in Blood by Automated count 108 10^3/uL 150 - 45 0 L [facility] Platelet mean volume [Entitic volume] in Blood by Automated count 10.5 fL 7.4 - 10.4 H [facility] Neutrophils/100 leukocytes in Blood by Automated count 66.4 % 37. 0 - 80.0 [facility] Lymphocytes/100 leukocytes in Blood by Manual count 5.3 % 25.0 - 40.0 L [facility] Monocytes/100 leukocytes in Blood by Automated count 27.0 % 3.0 - 8.0 H [facility] Eosinophils/100 leukocytes in Blood by Automated count 0.2 % 0.0 - 7.0 [facility] Basophils/100 leukocytes in Blood by Automated count 0.5 % 0.0 - 2.5 [facility] %IG 0.6 % 0.0 - 0.0 [facility] %[facility] 0.0 % 0.0 - 0.0 [facility] al Neutrophils [#/volume] in Blood by Automated count 6.86 10^3/uL 2.00 - 6.90 [facility] Lymphocytes [#/volume] in Blood by Automated count 0.55 10^3/uL 0.60 - 3.40 L [facility] Monocytes [#/volume] in Blood by Automated count 2.79 10^3/uL 0.00 - 0.90 H [facility] Eosinophils [#/volume] in Blood by Automated count 0.02 10^3/uL 0.00 - 0.70 [facility] Basophils [#/volume] in Blood by Automated count 0.05 10^3/uL 0.00 - 0.20 [facility] #IG 0.06 10^3/uL 0.00 - 0.10 [facility] #NRBC 0.00 10^3/uL 0.00 - 0.00 [facility] MANUAL DIFF SEE BELOW [facility] ital Segmented neutrophils/100 leukocytes in Blood by Manual count 78 % 37 - 80 [facility] BAND 1 % 0 - 5 [facility] %LYMPH 7 % 25 - [address] [facility] %MONO 14 % 3 - [address] [facility] RBC MORPH SEE BELOW [facility] Anisocytosis [Presence] in Blood by Light microscopy 1+ SHAUNA L: NONE SEEN A [facility] Macrocytes [Presence] in Blood by Light microscopy 1+ NORMAL: NONE SEEN A [facility] { SICKLE CELL (NORMAL: NONE SEEN ) Platelet adequacy [Presence] in Blood by Light microscopy DE CREASED NORMAL: NORMAL A [facility] COMMENT: ID Date Data Source [id number] 01/11/2020 07:11:00 AM EDT [facility] Name Value Range Interpretation Code Description Data Maura rce(s) Supporting Document(s) Magnesium [Mass/volume] in Serum or Plasma 1.4 MG/DL 1.7 - 2.2 L [facility] ID Date Data Source [id number] 01/11/2020 07:11:00 AM EDT [facility] Name Value Range Interpretation Code Description Data Maura rce(s) Supporting Document(s) BASIC METABOLIC PANEL [facility] BASIC METABOLIC PANEL Sodium [Moles/volume] in Serum or Plasma 142 mEq/L 134 - 153 [facility] Potassium [Moles/volume] in Serum or Plasma 4.2 mEq/L 3.6 - 5.0 [facility] Chloride [Moles/volume] in Serum or Plasma 101 mEq/L 98 - 107 [facility] Carbon dioxide, total [Moles/volume] in Serum or Plasma 33 MEQ/L 22 - 30 H [facility] Glucose [Mass/volume] in Serum or Plasma 89 MG/DL 65 - 110 [facility] BUN 16 MG/DL 7 - 21 [facility] al Creatinine [Mass/volume] in Serum or Plasma 0.7 MG/DL 0.7 - 1.5 [facility] BUN/CREAT 23 8 - 27 [facility] Calcium [Mass/volume] in Serum or Plasma 9.2 MG/DL 8.4 - 10.2 [facility] Anion gap 3 in Serum or Plasma 8.0 mmol/L 8.0 - 16.0 [facility] AGE 54 yrs [facility] al AFR AMER GFR >60 mL/min [facility] Ho spital NON-AA GFR >60 mL/min [facility] ital Male GFR Inter prentation 20-49 yrs >60 mL/min Normal 50-59 yrs >56 mL/min Normal 60-69 yrs >49 mL/min Normal 70-79yrs >42 mL/min Normal 80 and above >35 mL/min Normal Female GFR Interpretation 20-39 yrs >60 mL/min Normal 40-49 yrs >58 mL/min Normal 50-59 yrs >51 mL/min Normal 60-69 yrs >45 mL/min Normal 70-79 yrs >39 mL/min Normal 80 and above >32 mL/min Normal ID Date Data Source [id number] 01/10/2020 01:45:00 PM EDT [facility] Name Value Range Interpretation Code Description Data Maura rce(s) Supporting Document(s) BASIC METABOLIC PANEL [facility] BASIC METABOLIC PANEL Sodium [Moles/volume] in Serum or Plasma 137 mEq/L 134 - 153 [facility] Potassium [Moles/volume] in Serum or Plasma 4.7 mEq/L 3.6 - 5.0 [facility] Chloride [Moles/volume] in Serum or Plasma 96 mEq/L 98 - 107 L [facility] Carbon dioxide, total [Moles/volume] in Serum or Plasma 27 MEQ/L 22 - 30 [facility] Glucose [Mass/volume] in Serum or Plasma 137 MG/DL 65 - 110 H [facility] BUN 19 MG/DL 7 - 21 [facility] Creatinine [Mass/volume] in Serum or Plasma 0.6 MG/DL 0.7 - 1.5 L [facility] BUN/CREAT 32 8 - 27 H [facility] Calcium [Mass/volume] in Serum or Plasma 9.2 MG/DL 8.4 - 10.2 [facility] Anion gap 3 in Serum or Plasma 14.0 mmol/L 8.0 - 16.0 [facility] AGE 54 yrs [facility] al AFR AMER GFR >60 mL/min [facility] Ho spital NON-AA GFR >60 mL/min [facility] ital Male GFR Inter prentation 20-49 yrs >60 mL/min Normal 50-59 yrs >56 mL/min Normal 60-69 yrs >49 mL/min Normal 70-79yrs >42 mL/min Normal 80 and above >35 mL/min Normal Female GFR Interpretation 20-39 yrs >60 mL/min Normal 40-49 yrs >58 mL/min Normal 50-59 yrs >51 mL/min Normal 60-69 yrs >45 mL/min Normal 70-79 yrs >39 mL/min Normal 80 and above >32 mL/min Normal ID Date Data Source [id number] 01/10/2020 06:57:00 AM EDT [facility] Name Value Range Interpretation Code Description Data Maura rce(s) Supporting Document(s) BASIC METABOLIC PANEL [facility] BASIC METABOLIC PANEL Sodium [Moles/volume] in Serum or Plasma 139 mEq/L 134 - 153 [facility] Potassium [Moles/volume] in Serum or Plasma 5.2 mEq/L 3.6 - 5.0 H [facility] Chloride [Moles/volume] in Serum or Plasma 101 mEq/L 98 - 107 [facility] Carbon dioxide, total [Moles/volume] in Serum or Plasma 30 MEQ/L 22 - 30 [facility] Glucose [Mass/volume] in Serum or Plasma 137 MG/DL 65 - 110 H [facility] BUN 15 MG/DL 7 - 21 [facility] Creatinine [Mass/volume] in Serum or Plasma 0.6 MG/DL 0.7 - 1.5 L [facility] BUN/CREAT 25 8 - 27 [facility] Calcium [Mass/volume] in Serum or Plasma 8.9 MG/DL 8.4 - 10.2 [facility] Anion gap 3 in Serum or Plasma 8.0 mmol/L 8.0 - 16.0 [facility] AGE 54 yrs [facility] al AFR AMER GFR >60 mL/min [facility] Ho spital NON-AA GFR >60 mL/min [facility] ital Male GFR Inter prentation 20-49 yrs >60 mL/min Normal 50-59 yrs >56 mL/min Normal 60-69 yrs >49 mL/min Normal 70-79yrs >42 mL/min Normal 80 and above >35 mL/min Normal Female GFR Interpretation 20-39 yrs >60 mL/min Normal 40-49 yrs >58 mL/min Normal 50-59 yrs >51 mL/min Normal 60-69 yrs >45 mL/min Normal 70-79 yrs >39 mL/min Normal 80 and above >32 mL/min Normal ID Date Data Source [id number] 01/10/2020 06:43:00 AM EDT [facility] Name Value Range Interpretation Code Description Data Maura rce(s) Supporting Document(s) Magnesium [Mass/volume] in Serum or Plasma 1.8 MG/DL 1.7 - 2.2 [facility] ID Date Data Source [id number] 01/10/2020 06:41:00 AM EDT [facility] Name Value Range Interpretation Code Description Data Maura rce(s) Supporting Document(s) CBC NO DIFF [facility] ital COMPLETE BLOOD COUNT Leukocytes [#/volume] in Blood by Automated count 18.3 10^3/uL 4.2 - 11.0 H [facility] Erythrocytes [#/volume] in Blood by Automated count 3.01 10^6/uL 4. 20 - 5.40 L [facility] Hemoglobin [Mass/volume] in Blood 10.3 g/dL 12.0 - 16.0 L [facility] Hematocrit [Volume Fraction] of Blood by Automated count 31.1 % 3 7.0 - 47.0 L [facility] Erythrocyte mean corpuscular volume [Entitic volume] b y Automated count 103.3 fL 81.0 - 101 H [facility] Erythrocyte mean corpuscular hemoglobin [Entitic mass] by Automated count 34.2 pg 27.0 - 34.0 H [facility] Erythrocyte mean corpuscular hemoglobin concentration [Mass/volume] by Automated count 33.1 g/dL 31.0 - 36.0 [facility] Erythrocyte distribution width [Ratio] by Automated count 14.6 % 11.5 - 14.5 [facility] Platelets [#/volume] in Blood by Automated count 114 10^3/uL 150 - 45 0 L [facility] Platelet mean volume [Entitic volume] in Blood by Automated count 10.1 fL 7.4 - 10.4 [facility] ID Date Data Source [id number] 01/09/2020 01:13:00 [place] [address] RESPIRATORY CARE REPORT ==== ---------NAME------- NUMBER SEX AGE ADMIT DISC. XRAY# F/C CYNDY Daniels [id number] F [id number] 01/08/20 [id number] O/P DATE OF : 1965 M/R# [id number] #: [id number] LOCATION: EMERGENCY DEPT EKG [id number] COMPLE TE:01/09/20 11:20 [place] [id number] PHYSICIAN: DOMENIC MENDEZ Name Value Range Interpretation Code Description Data Maura rce(s) Supporting Document(s) ID Date Data Source [id number] 01/09/2020 01:12:00 [place] [address] RESPIRATORY CARE REPORT ==== ---------NAME------- NUMBER SEX AGE ADMIT DISC. XRAY# F/C CYNDY Daniels [id number] F 54 01/08/20 [id number] O/P DATE OF : 1965 M/R# [id number] #: [id number] LOCATION: EMERGENCY DEPT EKG [id number] COMPLE TE:01/08/20 13:17 [place] [id number] PHYSICIAN: DOMENIC MENDEZ Name Value Range Interpretation Code Description Data Maura rce(s) Supporting Document(s) ID Date Data Source [id number] 01/09/2020 01:11:00 [place] [address] RESPIRATORY CARE REPORT ==== ---------NAME------- NUMBER SEX AGE ADMIT DISC. XRAY# F/C CYNDY Daniels [id number] F 54 01/08/20 [id number] BBF O/P DATE OF : 1965 M/R# [id number] #: [id number] LOCATION: EMERGENCY DEPT [facility] [address] COMPLE TE:01/08/20 15:59 [id number] PHYSICIAN: DOMENIC ALVAREZ VANESSA Name Value Range Interpretation Code Description Data Maura rce(s) Supporting Document(s) ID Date Data Source [id number] 01/09/2020 07:21:00 AM EDT [facility] Name Value Range Interpretation Code Description Data Maura rce(s) Supporting Document(s) COMPREHENSIVE METABOLIC PANEL [facility] COMPREHENSIVE METABOLIC PANEL Sodium [Moles/volume] in Serum or Plasma 138 mEq/L 134 - 153 [facility] Potassium [Moles/volume] in Serum or Plasma 4.8 mEq/L 3.6 - 5.0 [facility] Chloride [Moles/volume] in Serum or Plasma 101 mEq/L 98 - 107 [facility] Carbon dioxide, total [Moles/volume] in Serum or Plasma 28 MEQ/L 22 - 30 [facility] Glucose [Mass/volume] in Serum or Plasma 152 MG/DL 65 - 110 [facility] BUN 9 MG/DL 7 - 21 [facility] Creatinine [Mass/volume] in Serum or Plasma 0.5 MG/DL 0.7 - 1.5 L [facility] BUN/CREAT 18 8 - 27 [facility] Protein [Mass/volume] in Serum or Plasma 6.6 G/DL 6.3 - 8.2 [facility] Albumin [Mass/volume] in Serum or Plasma 4.1 G/DL 3.9 - 5.0 [facility] Globulin [Mass/volume] in Serum by calculation 2.5 GM/DL 2.4 - 3.2 [facility] A/G RATIO 1.6 0.8 - 2.0 [facility] Calcium [Mass/volume] in Serum or Plasma 8.6 MG/DL 8.4 - 10.2 [facility] Bilirubin.total [Mass/volume] in Serum or Plasma <0.7 MG/DL 0.2 - 1.3 [facility] Alkaline phosphatase [Enzymatic activity/volume] in Serum or Plasma 254 U/L 38 - 126 [facility] Aspartate aminotransferase [Enzymatic activity/volume] in Serum or Plasma 32 U/L 5 - 40 [facility] Alanine aminotransferase [Enzymatic activity/volume] in Seru m or Plasma 32 U/L 7 - 56 [facility] Anion gap 3 in Serum or Plasma 9.0 mmol/L 8.0 - 16.0 [facility] AGE [address] [facility] NON-AA GFR >60 mL/min [facility] ital AFR AMER GFR >60 mL/min [facility] Ho spital Male GFR In terprentation 20-49 yrs >60 mL/min Normal 50-59 yrs >56 mL/min Normal 60-69 yrs >49 mL/min Normal 70-79yrs >42 mL/min Normal 80 and above >35 mL/min Normal Female GFR Interpretation 20-39 yrs >60 mL/min Normal 40-49 yrs >58 mL/min Normal 50-59 yrs >51 mL/min Normal 60-69 yrs >45 mL/min Normal 70-79 yrs >39 mL/min Normal 80 and above >32 mL/min Normal ID Date Data Source [id number] 01/09/2020 07:19:00 AM EDT [facility] Name Value Range Interpretation Code Description Data Maura rce(s) Supporting Document(s) CBC W/AUTOMATED DIFF [facility] COMPLETE BLOOD COUNT Leukocytes [#/volume] in Blood by Automated count 26.5 10^3/uL 4.2 - 11.0 [facility] Erythrocytes [#/volume] in Blood by Automated count 3.26 10^6/uL 4. 20 - 5.40 L [facility] Hemoglobin [Mass/volume] in Blood 11.2 g/dL 12.0 - 16.0 L [facility] Hematocrit [Volume Fraction] of Blood by Automated count 33.4 % 3 7.0 - 47.0 L [facility] Erythrocyte mean corpuscular volume [Entitic volume] b y Automated count 102.5 fL 81.0 - 101 H [facility] Erythrocyte mean corpuscular hemoglobin [Entitic mass] by Automated count 34.4 pg 27.0 - 34.0 [facility] Erythrocyte mean corpuscular hemoglobin concentration [Mass/volume] by Automated count 33.5 g/dL 31.0 - 36.0 [facility] Erythrocyte distribution width [Ratio] by Automated count 14.6 % 11.5 - 14.5 [facility] Platelets [#/volume] in Blood by Automated count 134 10^3/uL 150 - 45 0 L [facility] Platelet mean volume [Entitic volume] in Blood by Automated count 9.8 fL 7.4 - 10.4 [facility] Neutrophils/100 leukocytes in Blood by Automated count 86.9 % 37. 0 - 80.0 H [facility] Lymphocytes/100 leukocytes in Blood by Manual count 1.3 % 25.0 - 40.0 L [facility] Monocytes/100 leukocytes in Blood by Automated count 9.9 % 3.0 - 8.0 H [facility] Eosinophils/100 leukocytes in Blood by Automated count 0.6 % 0.0 - 7.0 [facility] Basophils/100 leukocytes in Blood by Automated count 0.0 % 0.0 - 2.5 [facility] %IG 1.3 % 0.0 - 0.[address] [facility] %NRBC 0.0 % 0.0 - 0.[facility] [#/volume] in Blood by Automated count 23.01 10^3/uL 2. 00 - 6.90 [facility] Lymphocytes [#/volume] in Blood by Automated count 0.34 10^3/uL 0.60 - 3.40 L [facility] Monocytes [#/volume] in Blood by Automated count 2.62 10^3/uL 0.00 - 0.90 H [facility] Eosinophils [#/volume] in Blood by Automated count 0.16 10^3/uL 0.00 - 0.70 [facility] Basophils [#/volume] in Blood by Automated count 0.01 10^3/uL 0.00 - 0.20 [facility] #IG 0.35 10^3/uL 0.00 - 0.[address] [facility] ospital #NRBC 0.00 10^3/uL 0.00 - 0.00 [facility] ospital MANUAL DIFF SEE BELOW [facility] Segmented neutrophils/100 leukocytes in Blood by Manual count 84 % 37 - [address] [facility] BAND 6 % 0 - 5 H [facility] %LYMPH 1 % 25 - [address] [facility] %MONO 9 % 3 - [address] [facility] RBC MORPH SEE BELOW [facility] Anisocytosis [Presence] in Blood by Light microscopy 1+ SHAUNA L: NONE SEEN A [facility] Macrocytes [Presence] in Blood by Light microscopy 1+ NORMAL: NONE SEEN A [facility] Poikilocytosis [Presence] in Blood by Light microscopy 1+ NOR MAL: NONE SEEN A [facility] { SICKLE CELL (NORMAL: NONE SEEN ) COMMENT: ID Date Data Source [id number] 01/09/2020 07:21:00 AM EDT [facility] Name Value Range Interpretation Code Description Data Maura rce(s) Supporting Document(s) Magnesium [Mass/volume] in Serum or Plasma 1.3 MG/DL 1.7 - 2.2 L [facility] ID Date Data Source [id number] 01/08/2020 09:39:00 PM EST [facility] Name Value Range Interpretation Code Description Data Maura rce(s) Supporting Document(s) TROPONIN T 0.01 NG/ML 0.00 - 0.10 [facility] spital TROPONIN T0.1 ng/ml Recommended as the c linical threshold value Kathie Maxwell ID Date Data Source [id number] 01/08/2020 09:07:00 AM EST [facility] 1 OrderSheet [facility] Emergency Department [address] [place] [address] Phone #: ext- [phone] 01/08/2020 09:05 Patient: CHANTALE SOLOMON Sex: F : 1965 Age: 54yWEIGHT:88.4 kg (S) HEIGHT:60 inches (S) BMI:38.1ALLERGIES: Penicillins, SeafoodCHIEF COMPLAINT: dyspnea, COPDDIAGNOSIS: Pneumonia, Malignant tumor of lungLAB ORDERSOrder Description Priority Entered Acknowledged InitialedCBC w Diff STAT 09:24 01/08/2020 09:25 Camron Faust RN Physician;CMP STAT 09:01/08/2020 09:25 Camron Faust RN sician;BNP STAT 09:01/08/2020 09:25 Camron Faust RN Physician;Culture, Sputum STAT 09:01/08/2020 Ack'd: 10:15 Camron Faust RN Cancelled: Unable to Collect 13:07 Physician; James Youngblood R.N.Blood Culture STAT 09:24 01/08/2020 09:25 [place] Faust X2 (Sched Tadeo Ritchie RN09:24 01/08/2020) Physician;Blood Culture STAT 09:01/08/2020 09:25 [place] Faust X2 (Sched Tadeo Ritchie RN09:34 01/08/2020) Physician;Lactic Acid STAT 09:24 01/08/2020 09:25 Camron Faust RN Physician;D-Dimer STAT 09:01/08/2020 09:25 Brown, Camron Tadeo Chau RN Physician;Troponin-T STAT 09:24 01/08/2020 09:25 Camron Faust RN Physician;Urinalysis (Clean STAT 09:24 01/08/2020 Ack'd: 10:15 Camron Faust RNCatch) Tadeo Ritchie Cancelled: Unable to Collect 13:07 Physician; James Youngblood R.N.Influenza Nasal A B STAT 09:34 01/08/2020 09:34 Camron Faust 2 OrderSheet [facility] Emergency Department [address] [place] [address] Phone #: ext- [phone] 01/08/2020 09:05 Patient: CHANTALE SOLOMON Sex: F : 1965 Age: 54y Camron Faust RN; RN Verbal order per; Tadeo Ritchie PhysicianDIAGNOSTIC STUDY ORDERSOrder Description Priority Entered Acknowledged InitialedChest 2 View STAT 09:01/08/2020 09:25 Camron Faust(Oxygen? (Yes)) Tadeo Ritchie RN Physician; Reason for Study: Shortness of BreathMEDICATION/IV/DRIP/FLUID ORDERSOrder Description Priority Entered Acknowledged InitialedDuoNeb Neb Tx 3 09:24 01/08/2020 10:14 Jose J Faust (NOW) Tadeo Ritchie RN Physician;SOLU-Medrol IVP 09:24 01/08/2020 10:15 Ashley Fausta125 mg Tadeo Ritchie RN Physician;levoFLOXacin IVPB 10:50 01/08/2020 11:01 [id number] mg/100mL Tadeo Mendes RN(NOW) Physician;GENERAL ORDERSOrder Description Priority Entered Acknowledged InitialedEKG 09:24 01/08/2020 09:25 Camron Faust RN Physician;Saline Lock 09:24 01/08/2020 10:14 Camron Faust RN Physician;[Electronically signed by James Youngblood R.N. (13:08 01/08/2020)][Electronically signed by Tadeo Ritchie (16:14 01/08/2020)][Electronically locked by James Youngblood R.N. (13:08 01/08/2020)] Name Value Range Interpretation Code Description Data Maura rce(s) Supporting Document(s) ID Date Data Source [id number] 01/08/2020 09:07:00 AM EST [facility] 1 Medication Reconciliation Report [facility] Emergency Department [address] [place] [address] Phone #: ext- [phone] 01/08/2020 09:05 Patient: CHANTALE SOLOMON Sex: F : 1965 Age: 54yWeight: 88.4 kgHeight/Length: 60 in.BMI: 38.1ALLERGIES: Penicillins, SeafoodThe patient's Home Medications are listed below:THE FOLLOWING MEDICATIONS NEED TO BE RECONCILED: DuoNeb Neulasta Subcutaneous Oxygen, 2 L Pantoprazole Sodium Oral Spiriva HandiHaler Inhalation Symbicort Inhalation Tylenol Oral Xarelto OralThe source(s) of the original Home Medication information:patientThe following Medications were given to the patient in the Emergency Department:Duoneb [Neb Tx] Neb TX 1 unit dose, administered: 01/08/2020 9:59:00 AMSolu-Medrol [IVP] IVP 125 mg, administered: 01/08/2020 10:10:00 AMLevofloxacin [IVPB] IVPB bolus 0, then 500 mg 100 mL/hr, administered: 01/08/2020 11:01:00 AMThe following Medications were prescribed to the patient:None. 2 Medication Reconciliation Report [facility] Emergency Department [address] [place] [address] Phone #: ext- [phone] 01/08/2020 09:05 Patient: CHANTALE SOLOMON Sex: F : 1965 Age: 54y Name Value Range Interpretation Code Description Data Maura rce(s) Supporting Document(s) ID Date Data Source [id number] 01/08/2020 09:07:00 AM [facility] 1 Medication Administration Record [facility] Emergency Department [address] [place] [address] Phone #: ext- [phone] 01/08/2020 09:05 Patient: CHANTALE SOLOMON Sex: F : 1965 Age: 54yWeight: 88.4 kgHeight/Length: 60 inBMI: 38.1ALLERGIES: Penicillins, Seafood Date/Time Medication Administered Medication OrderedGiven DUONEB [NEB TX] DuoNeb Neb Tx 3 mL (NOW)09:59 01/08/2020 Dose: 1 unit dose Camron Sanchez RNGiven SOLU-MEDROL [IVP] SOLU-Medrol IVP 125 mg10:10 01/08/2020 (METHYLPREDNISOL ONE Camron Riddle RN SUCC) Dose: 125 mg IVP Site: #1 right forearmStart LEVOFLOXACIN [IVPB] levoFLOXacin IVPB 500 mg/453gO13:01 01/08/2020 Dose: 500 mg IVPB (NOW)Yandel Mendes RN Rate: 100 mL/hr over 1 hour(s)---- Dispensed: 100 mL bagStop Site: #1 right ilrbqik05:49 01/08/2020James Youngblood R.N. Name Value Range Interpretation Code Description Data Maura rce(s) Supporting Document(s) ID Date Data Source [id number] 01/08/2020 09:07:00 AM [facility] 1 General Instructions [facility] Emergency Department [address] [place] [address] Phone #: ext- [phone] 01/08/2020 09:05 Patient: CHANTALE SOLOMON Sex: F : 1965 Age: 54yMetastatic left upper lobe lung cancer.Bacterial pneumonia.(Electronically signed by Tadeo Ritchie, Physician 01/08/2020 16:14) Name Value Range Interpretation Code Description Data Maura rce(s) Supporting Document(s) ID Date Data Source [id number] 01/08/2020 09:07:00 AM [facility] 1 Clinical Report - Nurses [facility] Emergency Department [address] [place] [address] Phone #: ext [phone] 01/08/2020 09:05 Patient: CHANTALE SOLOMON Sex: F : 1965 Age: 54yTRIAGEArrived by private vehicle. Historian: patient. ( presents with c/o low oxygen sat for past few days, pt haslung cancer and had a tx on friday. has a chronic cough but sats have been low with exertion only).Triage time: 09:06 01/08/2020. Acuity: LEVEL 3.Chief Complaint: SHORTNESS OF BREATH and (low oxygen sat, lung cancer).Alert. No acute distress.Onset. (2 days). She has had a cough and back pain.Treatment RARE/ENDANGERED SPECIES SPECIALIST:Administered oxygen.SEPSIS SCREEN: Negative (no infection suspected/documented). --09:13 01/08/20 Camron Faust, RN09:06 01/08/20. BP: 141/96. MAP: 111. HR: 111. RR: 18. O2 saturation: 98% on nasal cannula at 2liters/minute. Temp: 97.1 F. Pain level now : 02/10. --09:13 01/08/20 Camron Faust RN.Weight: 88.4 kg stated. Height/Length: 60 inches Per Patient. BMI: 38.1. --09:13 01/08/20 Camron Faust RN.MedicationsOxygen (2 L). Pantoprazole Sodium Oral. Spiriva HandiHaler Inhalation. Symbicort Inhalation. Xarelto Oral. --09:10 01/08/20 Camron Faust RN Tylenol Oral. --09:12 01/08/20 Camron Faust, MARK Neulasta Subcutaneous. --09:12 01/08/20 Camron Faust, MARK DuoNeb. --09:16 01/08/20 Camron Faust, MARK.AllergiesPenicillins.Seafood. --09:10 01/08/20 Camron Faust RN.PROBLEMS:Cancer: Active. (Lung, mets to bones). --09:11 01/08/20 Camron Faust RNDVT - Deep Venous Thrombosis.Intervertebral Disc Disease.Reflux.Spinal Fracture.Lower Extremity Pain. 2 Clinical Report - Nurses [facility] Emergency Department [address] [place] [address] Phone #: ext- [phone] 01/08/2020 09:05 Patient: CHANTALE SOLOMON Sex: F : 1965 Age: 54y Pulmonary Embolism. --09:11 01/08/20 Camron Faust, MARK. Medication/allergy information source: the patient and patient's previous visit record. --09:13 01/08/20 Camron Faust RN. ADDITIONAL SURGERIES: Appendectomy. Back Surgery (Rods in t spine, crushed t7 t8). Dilatation Curettage. Foot surgery. Right heel spur. Septoplasty. Tonsillectomy. Tubal Ligation. --09:11 01/08/20 Camron Faust RN. History PAST MEDICAL HX: The patient is post-menopausal. SOCIAL HX: Former smoker. Regular alcohol use. No drug use. She was offered HIV testing but declined and hepatitis C testing but declined. She has not traveled outside the [place] Infectious disease exposure: No infectious disease exposure. SELF HARM ASSESSMENT: Self harm assessment was performed. The patient answered "no" to the question(s) "Have you recently felt down, depressed, or hopeless?". ABUSE ASSESSMENT: No report of abuse. NUTRITIONAL RISK ASSESSMENT: The nutritional risk assessment revealed no deficiencies. FUNCTIONAL ASSESSMENT: Functional assessment: no impairments noted. LEARNING NEEDS ASSESSMENT: The learning needs assessment revealed no barriers. FALL RISK ASSESSMENT: Fall risk assessment completed. No risk factors identified. SKIN INTEGRITY ASSESSMENT: Skin integrity risk assessment completed. No skin integrity risk identified. --09:13 01/08/20 Camron Faust RN. FAMILY HX: (Father history of Diabetes). --09:22 01/08/20 Tadeo Ritchie, Physician.PHYSICAL ASSESSMENTAmbulatory to room.GENERAL / NEURO / PSYCH: Alert. Oriented X 4. Appears in no acute distress.HEENT: Mucous membranes are pink.RESPIRATORY: No respiratory distress. Respirations not labored. Cough. Chest wall tenderness. 3 Clinical Report - Nurses [facility] Emergency Department [address] [place] [address] Phone #: ext- [phone] 01/08/2020 09:05 Patient: CHANTALE SOLOMON Sex: F : 1965 Age: 54y Rhonchi present in the left lung. CVS: Capillary refill less than 2 seconds. GI / : Abdomen soft and nontender. Bowel sounds within normal limits. SKIN: Skin is warm and dry. Normal skin turgor. --09:17 01/08/20 Camron Faust RN.NURSING PROGRESS NOTESOxygen administered. Patient gowned. Reassurance given. Two patient identifiers checked. Bedplaced in lowest position. Brakes of bed on. Patient ready for evaluation. --09:17 01/08/20 Camron Faust RN EKG time: (09:29 01/08/2020). EKG was performed by a tech and shown to the ED physician. --09:32 01/08/20 [place] [address] 09:59 01/08/2020 Duoneb Neb TX 1 unit dose given. Given by the nurse. Allergies verified and confirmed 5 rights. Information reviewed with patient including reason for taking this medication. Verbalizes understanding. --10:14 01/08/20 Camron Faust RN 10:04 01/08/2020 Site #1 started via IV in the right forearm with an 20g angiocath; two attempts. Saline lock flushed with 5 mL saline. --10:14 01/08/20 Camron Faust RN 10:10 01/08/2020 Solu-Medrol (methylPREDNISolone Sodium Succ) IVP 125 mg given via site #1. Allergies verified and confirmed 5 rights. IV patency established. IV site checked: no pain, redness, or swelling. IV flushed thoroughly pre- and post-medication administration. IVP given by RN. Information reviewed with patient including reason for taking this medication. Verbalizes understanding. --10:15 01/08/20 Camron Faust RN 10:16 01/08/20. BP: 129/87. MAP: 101. HR: 94. RR: 16. O2 saturation: 100%. --10:16 01/08/20 [place] [address] 11:00 01/08/20. BP: 110/72. MAP: 84. HR: 96. RR: 16. O2 saturation: 100%. --11:01 01/08/20 [place] [address] 11:01 01/08/2020 Started 500 mg of Levofloxacin IVPB in bag #1 100 mL; at 100 mL/hr over 1 hour(s) via site #1. via IV pump. Allergies verified and confirmed 5 rights. IV patency established. IV site checked: no pain, redness, or swelling. IV flushed thoroughly pre- and post-medication administration. Information reviewed with patient. --11:01 01/08/20 Yandel Mendes RN 11:49 01/08/2020 Levofloxacin IVPB via IV site #1 Discontinued: bag #1 completed upon admission. Total amount infused: 100 mL. IV patency established. IV site checked: no pain, redness, or swelling. IV flushed thoroughly. --11:50 01/08/20 James Youngblood R.N. 11:50 01/08/2020 Site #[address] upon admission; patent, no pain and no signs of infection or infiltration. Good blood return present. Flushed with 10 mL saline; flushes easily. --11:50 01/08/20 James Youngblood R.N. 4 Clinical Report - Nurses [facility] Emergency Department [address] [place] [address] Phone #: ext- [phone] 01/08/2020 09:05 Patient: CHANTALE SOLOMON Sex: F : 1965 Age: 54y 12:02 01/08/20. BP: 123/83. MAP: 96. HR: 99. RR: 16. O2 saturation: 100%. --12:03 01/08/20 [facility] [place] [id number] 12:13 01/08/20. Reassurance given. Reassessment acuity: LEVEL 3. Reassessment after medication administered. No adverse reaction. She reports no complaints and she is calm and resting quietly. Overall patient status is improved- she states feels better. GENERAL / NEURO / PSYCH: Denies fatigue. Denies anxiety. RESPIRATORY: Denies difficulty breathing. No orthopnea. No respiratory distress. CVS: Denies chest pain. SKIN: Skin is warm and dry. Two patient identifiers checked. Call light placed in reach. Patient placed in chair. Brakes of chair on. --12:14 01/08/20 James Youngblood R.N.DISPOSITION / DISCHARGE 12:14 01/08/20. Condition at departure: impro asaf and stable. The goals identified in the patient's plan of care were met. Fall risk assessment completed. No risk factors identified. Admitted to the Acute Inpatient Unit, Monitored. Transported via wheelchair by nurse with O2. Bed obtained and ready (117). --12:15 01/08/20 James Youngblood R.N. 12:16 01/08/20. Departure time: 12:22 01/08/2020. Report was given to a nurse via a phone call. Report included information regarding patient's care, allergies and condition, current vital signs and labs. Report included treatment information regarding medications given or pending. All questions were answered. Care was transferred. (PAT). --12:32 01/08/20 James Youngblood R.N. 12:15 01/08/20. BP: 123/83. MAP: 96. HR: 100. RR: 16. O2 saturation: 100% on nasal cannula at 2 liters/minute. Temp: 98.5 F. Pain level now: 0/10. --12:32 01/08/20 James Youngblood R.N.Locked/Released at 01/08/2020 13:08 by James Youngblood R.N. Name Value Range Interpretation Code Description Data Maura rce(s) Supporting Document(s) ID Date Data Source [id number] 01/08/2020 09:07:00 AM [facility] 1 Clinical Report - Physicians/Mid Levels [facility] Emergency Department [address] [place] [address] Phone #: ext- [phone] 01/08/2020 09:05 Patient: HCANTALE SOLOMON Sex: F : 1965 Age: 54y Time Seen: 09:18 01/08/2020. Arrived- By private vehicle. Historian- patient. Disposition decision: 11:18 01/08/2020.HISTORY OF PRESENT ILLNESS Chief Complaint: DYSPNEA and HISTORY OF CHRONIC OBSTRUCTIVE PULMONARY DISEASE. This started yesterday and is still present. The dyspnea is described as moderate and is worsened by exertion, is improved with oxygen and is improved with sitting upright. The patient has had scant amounts of sputum and a moderate cough. No fever, sweating episodes, wheezing, chills or dyspnea on exertion. No chest pain or discomfort, calf pain, foot swelling or orthopnea. No paroxysmal nocturnal dyspnea, anxiety, dizziness, tingling or numbness. No palpitations. Similar symptoms previously. Patient has had similar symptoms occasionally. Recent medical care: The patient was seen recently in the office. ( Had chemotherapy Friday).REVIEW OF SYSTEMSThe patient has not had weight loss. No muscle aches, eye irritation, sore throat, nasal discharge or sinusdrainage. No nausea, vomiting, abdominal pain, diarrhea or black stools. No bloody stools, headache,fainting episodes, blurred vision or difficulty with urination. No excessive urination, skin rash, enlargedlymph nodes or joint pain. Denies current . All other systems reviewed and are negative.PAST HISTORYSee nurses notes. Problems: Cancer [Active]. Chronic Back Pain. Back Injury. Cancer. DVT - Deep Venous Thrombosis. Intervertebral Disc Disease. Reflux. Spinal Fracture. Lower Extremity Pain. Pulmonary Embolism. Additional Surgeries: Appendectomy. Back Surgery. Dilatation Curettage. Foot surgery. 2 Clinical Report - Physicians/Mid Levels [facility] Emergency Department [address] [place] [address] Phone #: ext- [phone] 01/08/2020 09:05 [id number] Sex[facility] F : 1965 Age: 54y Right heel spur. Septoplasty. Tonsillectomy. Tubal Ligation. Medications: DuoNeb. Neulasta Subcutaneous. Tylenol Oral. Oxygen (2 L). Pantoprazole Sodium Oral. Spiriva HandiHaler Inhalation. Symbicort Inhalation. Xarelto Oral. Allergies: Penicillins. Seafood.SOCIAL HISTORYFormer smoker. No alcohol use or drug use. No recent travel.FAMILY HISTORY(Father history of Diabetes).ADDITIONAL NOTESThe nursing notes have been reviewed with agreement regarding the chief complaint, HPI, ROS, PMH andpatient medications and allergi es.PHYSICAL EXAMVital Signs: 01/08/2020 09:06 BP: 141/96. MAP: 111. HR: 111. RR: 18. O2 saturation: 98% on nasalcannula at 2 liters/minute. Temp: 97.1 F. Pain level now: 02/10. Have been reviewed as abnormal.Hypertensive. Tachycardic. Respiratory rate normal. Temperature normal. Oxygen saturation low.Appearance: Alert. Patient in mild distress.Eyes: Pupils equal, round and reactive to light. Eyes normal inspection.ENT: Ears normal. Nose normal. Pharynx normal. Uvula midline.Neck: Normal inspection. No jugular venous distention. Neck supple.CVS: Tachycardia. Heart sounds normal. Pulses normal.Respiratory: Painless inspiration. Expiratory wheezes present (scattered).Abdomen: Soft and nontender. No organomegaly. Obese.Back: Normal inspection.Skin: Skin warm and dry. Normal skin color. No rash. Normal skin turgor.Extremities: Extremities exhibit normal ROM. No lower extremity edema.Neuro: Oriented X 3. No motor deficit. No sensory deficit. 3 Clinical Report - Physicians/Mid Levels [facility] Emergency Department [address] [place] [address] Phone #: ext- [phone] 01/08/2020 09:05 Patient: CHANTALE SOLOMON Sex: F : 1965 Age: 54yLABS, X-RAYS, AND EKGEKG: EKG time: 09:29 01/08/2020. No acute process. Normal sinus rhythm. Occasional atrial ectopicbeats. Normal P waves. Normal KATIE. Normal QRS complex. Prolonged QT. Artifact present.Interpretation time: 09:31 01/08/2020.Chest X-ray: Infiltrate present. Mass present. (No change left upper lobe). The X-rays wereindependently viewed by me and interpreted by the radiologist. Interpretation time: 10:39 01/08/2020.Laboratory Tests: Laboratory tests have been ordered, with results reviewed and considered in themedical decision making process. Influenza Nasal A B: (SARAH: 01/08/2020 09:19) ( [facility] 01/08/2020 10:26) Final results Test Result Flag Units (Reference) INFLUENZA A NEGATIVE (NORMAL: NEGAT INFLUENZA B NEGATIVE (NORMAL: NEGAT INFLUENZA A REENTER NEGATIVE (NORMAL: NEGAT INFLUENZA B REENTER NEGATIVE (NORMAL: NEGAT PROCEDURAL CONTROL VALID KIT LOT # _[id number] 01/08/20.1025.CM . KIT EXP DATE _11/30/20 01/08/20.1025.CM .The Influenza A utilizing an isothermal nucleic acid amplification technology for thequalitative detection of influenza A and B viral RNA.Negative results do not preclude influenza virus infection and should not beused as the sole basis for diagnosis, treatment or other patient managementdecisions. CBC w Diff: (SARAH: 01/08/2020 09:37) ( [facility] 01/08/2020 10:13) Final results Test Result Flag Units (Reference) CBC W/AUTOMATED DIFF COMPLETE BLOOD COUNT WBC 21.3 H 10/uL (4.2 - 11.0) RBC 3.17 L 10/uL (4.20 - 5.40) HEMOGLOBIN 11.0 L g/dL (12.0 - 16.0) HEMATOCRIT 33.0 L % (37.0 - 47.0) MCV 104.1 H fL (81.0 - 101) MCH 34.7 H pg (27.0 - 34.0) MCHC 33.3 g/dL (31.0 - 36.0) RDW 15.5 H % (11.5 - 14.5) PLATELETS 132 L 10/uL (150 - 450) MPV 9.1 fL (7.4 - 10.4) NEUT 87.0 H % (37.0 - 80.0) LYMPH 2.2 L % (25.0 - 40.0) MONO 10.1 H % (3.0 - 8.0) EOS 0.4 % (0.0 - 7.0) BASO 0.2 % (0.0 - 2.5) %IG 0.1 H % (0.0 - 0.0) %NRBC 0.0 % (0.0 - 0.0) #NEUT 18.55 H 10/uL (2.00 - 6.90) #LYMPH 0.47 L 10/uL (0.60 - 3.40) #MONO 2.16 H 10/uL (0.00 - 0.90) #EOS 0.09 10/uL (0.00 - 0.70) #BASO 0.04 10/uL (0.00 - 0.20) #IG 0.03 10/uL (0.00 - 0.10) #NRBC 0.00 10/uL (0.00 - 0.00) MANUAL DIFF SEE BELOW SEGS 92 H % (37 - 80) BAND 1 % (0 - 5) %LYMPH 1 L % (25 - 40) %MONO 6 % (3 - 8) RBC MORPH NOT INDICATED CMP: (SARAH: 01/08/2020 09:37) ( MsgRcvd 01/08/2020 10:26) Final results Test Result Flag Units (Reference) COMPREHENSIVE METABOLIC PANEL COMPREHENSIVE METABOLIC PANEL 4 Clinical Report - Physicians/Mid Levels [facility] Emergency Department [address] [place] [address] Phone #: ext- [phone] 01/08/2020 09:05 Patient: CHANTALE SOLOMON Sex: F : 1965 Age: 54y SODIUM 139 mEq/L (134 - 153) POTASSIUM 3.8 mEq/L (3.6 - 5.0) CHLORIDE 99 mEq/L (98 - 107) CO2 27 MEQ/L (22 - 30) GLUCOSE 113 H MG/DL (65 - 110) BUN 11 MG/DL (7 - 21) CREATININE 0.7 MG/DL (0.7 - 1.5) BUN/CREAT 16 (8 - 27) TOTAL PROTEIN 6.2 L G/DL (6.3 - 8.2) ALBUMIN 3.8 L G/DL (3.9 - 5.0) GLOBULIN 2.4 GM/DL (2.4 - 3.2) A/G RATIO 1.6 (0.8 - 2.0) CALCIUM 8.0 L MG/DL (8.4 - 10.2) TOTAL BILI <0.7 MG/DL (0.2 - 1.3) ALKALINE PHOS 248 H U/L (38 - 126) SGOT/AST 46 H U/L (5 - 40) SGPT/ALT 34 U/L (7 - 56) ANION GAP 13.0 mmol/L (8.0 - 16.0) AGE 54 yrs NON-AA GFR >60 mL/min AFR AMER GFR >60 mL/min Male GFR Interprentation 20-49 yrs >60 mL/min Normal 50-59 yrs >56 mL/min Normal 60-69 yrs >49 mL/min Normal 70-79yrs >42 mL/min Normal 80 and above >35 mL/min Normal Female GFR Interpretation 20-39 yrs >60 mL/min Normal 40-49 yrs >58 mL/min Normal 50-59 yrs >51 mL/min Normal 60-69 yrs >45 mL/min Normal 70-79 yrs >39 mL/min Normal 80 and above >32 mL/min Normal BNP: (SARAH: 01/08/2020 09:37) ( MsgRcvd 01/08/2020 10:26) Final results Test Result Flag Units (Reference) BNP 460 H PG/ML (0 - 125) Lactic Acid: (SARAH: 01/08/2020 09:37) ( MsgRcvd 01/08/2020 09:52) Final results Test Result Flag Units (Reference) LACTIC ACID 2.9 H MMOL/L (0.2 - 2.2) D-Dimer: (SARAH: 01/08/2020 09:37) ( [facility] 01/08/2020 10:07) Final results Test Result Flag Units (Reference) D-DIMER QUANT 1.25 H ug/mL (0.27 - 0.50) Troponin-T: (SARAH: 01/08/2020 09:37) ( [facility] 01/08/[place] 10:14) Final results Test Result Flag Units (Reference) TROPONIN T 0.01 NG/ML (0.00 - 0.10) TROPONIN T0.1 ng/ml Recommended as the clinical threshold value Kathie Maxwell.PROGRESS AND PROCEDURESCourse of Care: 09:26 Jan 08 2020. (Patient's history obtained and exam completed. Treatment plandiscussed and agreed upon. Labs, cultures chest x- ray along with Duo-neb treatment and Solu-Medrol 125mg IV ordered.). 11:16 Jan 08 2020. (Case discussed with Evelyn PRODUCT DEVELOPMENT CONSULTANT for admission. Levaquin 500 mg IV given.). Discussed case with hospitalist, (10:40 Jan 08 2020 Discussed case with Evelyn Garza). Reviewed test results and need for additional work-up. Agreed upon treatment plan. Health care provider will see patient in hospital. 5 Clinical Report - Physicians/Mid Levels [facility] Emergency Department [address] [place] [address] Phone #: ext- [phone] 01/08/2020 09:05 Patient: CHANTALE SOLOMON Sex: F : 1965 Age: 54y Disposition: Condition: guarded.CLINICAL IMPRESSION Metastatic left upper lobe lung cancer. Bacterial pneumonia.(Electronically signed by [place] Physician Chau 01/08/2020 16:14) Name Value Range Interpretation Code Description Data Maura rce(s) Supporting Document(s) ID Date Data Source [id number] 01/08/2020 09:07:00 AM [facility] AddCHANTALE Joshua VisitID: [id number] Date: 10:58Med Rec Request faxed to [facility] with [employer] overview @ 1050 on 01/08/20.(Electronically signed by Ernesto Kearns - 01/08/2020 10:58)01/08/2020 12:08[employer] OVERVIEW FAXED TO [facility] @ 1143 ON 01/08/20CONFIRMED RECIPT WITH FENG ON [facility](Electronically signed by Ernesto Kearns - 01/08/2020 12:08) Name Value Range Interpretation Code Description Data Maura rce(s) Supporting Document(s) ID Date Data Source [id number] 01/08/2020 03:54:00 PM [facility] Name Value Range Interpretation Code Description Data Maura rce(s) Supporting Document(s) TROPONIN T 0.01 NG/ML 0.00 - 0.10 [facility] spital TROPONIN T0.1 ng/ml Recommended as the c linical threshold value forTroponin T. ID Date Data Source [id number] 01/15/2020 03:06:00 PM EDT [facility] Name Value Range Interpretation Code Description Data Maura rce(s) Supporting Document(s) CULTURE BLOOD [facility] spital _CULTURE BLOOD_ TEST [place] [address] CLIA# [id number] SEE SCANNED REPORT{ PRELIM ID Date Data Source [id number] 01/13/2020 12:02:00 PM EDT [facility] [id number] Name Value Range Interpretation Code Description Data Maura rce(s) Supporting Document(s) Bacteria identified in Blood by Culture [facility] NO GROWTH AFTER 5 DAYS ID Date Data Source [id number] 01/08/2020 10:26:00 AM [facility] Name Value Range Interpretation Code Description Data Maura rce(s) Supporting Document(s) BNP 460 PG[facility]ML 0 - 125 [facility] Data Source [id number] 01/08/2020 10:26:00 AM EST [facility] Name Value Range Interpretation Code Description Data Maura rce(s) Supporting Document(s) COMPREHENSIVE METABOLIC PANEL [facility] COMPREHENSIVE METABOLIC PANEL Sodium [Moles/volume] in Serum or Plasma 139 mEq/L 134 - 153 [facility] Potassium [Moles/volume] in Serum or Plasma 3.8 mEq/L 3.6 - 5.0 [facility] Chloride [Moles/volume] in Serum or Plasma 99 mEq/L 98 - 107 [facility] Carbon dioxide, total [Moles/volume] in Serum or Plasma 27 MEQ/L 22 - 30 [facility] Glucose [Mass/volume] in Serum or Plasma 113 MG/DL 65 - 110 H [facility] BUN 11 MG/DL 7 - 21 [facility] al Creatinine [Mass/volume] in Serum or Plasma 0.7 MG/DL 0.7 - 1.5 [facility] BUN/CREAT 16 8 - 27 [facility] Protein [Mass/volume] in Serum or Plasma 6.2 G/DL 6.3 - 8.2 L [facility] Albumin [Mass/volume] in Serum or Plasma 3.8 G/DL 3.9 - 5.0 L [facility] Globulin [Mass/volume] in Serum by calculation 2.4 GM/DL 2.4 - 3.2 [facility] A/G RATIO 1.6 0.8 - 2.0 [facility] Calcium [Mass/volume] in Serum or Plasma 8.0 MG/DL 8.4 - 10.2 L [facility] Bilirubin.total [Mass/volume] in Serum or Plasma <0.7 MG/DL 0.2 - 1.3 [facility] Alkaline phosphatase [Enzymatic activity/volume] in Serum or Plasma 248 U/L 38 - 126 H [facility] Aspartate aminotransferase [Enzymatic activity/volume] in Serum or Plasma 46 U/L 5 - 40 H [facility] Alanine aminotransferase [Enzymatic activity/volume] in Seru m or Plasma 34 U/L 7 - 56 [facility] Anion gap 3 in Serum or Plasma 13.0 mmol/L 8.0 - 16.0 [facility] AGE [address] [facility] NON-AA GFR >60 mL/min [facility] ital AFR AMER GFR >60 mL/min [facility] spital Male GFR In terprentation 20-49 yrs >60 mL/min Normal 50-59 yrs >56 mL/min Normal 60-69 yrs >49 mL/min Normal 70-79yrs >42 mL/min Normal 80 and above >35 mL/min Normal Female GFR Interpretation 20-39 yrs >60 mL/min Normal 40-49 yrs >58 mL/min Normal 50-59 yrs >51 mL/min Normal 60-69 yrs >45 mL/min Normal 70-79 yrs >39 mL/min Normal 80 and above >32 mL/min Normal ID Date Data Source [id number] 01/08/2020 10:13:00 AM [facility] Name Value Range Interpretation Code Description Data Maura rce(s) Supporting Document(s) TROPONIN T 0.01 NG/ML 0.00 - 0.10 [facility] spital TROPONIN T0.1 ng/ml Recommended as the c linical threshold value forTroponin T. ID Date Data Source [id number] 01/08/2020 10:13:00 AM [facility] Name Value Range Interpretation Code Description Data Maura rce(s) Supporting Document(s) CBC W/AUTOMATED DIFF [facility] COMPLETE BLOOD COUNT Leukocytes [#/volume] in Blood by Automated count 21.3 10^3/uL 4.2 - 11.0 H [facility] Erythrocytes [#/volume] in Blood by Automated count 3.17 10^6/uL 4. 20 - 5.40 L [facility] Hemoglobin [Mass/volume] in Blood 11.0 g/dL 12.0 - 16.0 L [facility] Hematocrit [Volume Fraction] of Blood by Automated count 33.0 % 3 7.0 - 47.0 L [facility] Erythrocyte mean corpuscular volume [Entitic volume] b y Automated count 104.1 fL 81.0 - 101 H [facility] Erythrocyte mean corpuscular hemoglobin [Entitic mass] by Automated count 34.7 pg 27.0 - 34.0 H [facility] Erythrocyte mean corpuscular hemoglobin concentration [Mass/volume] by Automated count 33.3 g/dL 31.0 - 36.0 [facility] Erythrocyte distribution width [Ratio] by Automated count 15.5 % 11.5 - 14.5 H [facility] Platelets [#/volume] in Blood by Automated count 132 10^3/uL 150 - 45 0 L [facility] Platelet mean volume [Entitic volume] in Blood by Automated count 9.1 fL 7.4 - 10.4 [facility] Neutrophils/100 leukocytes in Blood by Automated count 87.0 % 37. 0 - 80.0 H [facility] Lymphocytes/100 leukocytes in Blood by Manual count 2.2 % 25.0 - 40.0 L [facility] Monocytes/100 leukocytes in Blood by Automated count 10.1 % 3.0 - 8.0 H [facility] Eosinophils/100 leukocytes in Blood by Automated count 0.4 % 0.0 - 7.0 [facility] Basophils/100 leukocytes in Blood by Automated count 0.2 % 0.0 - 2.5 [facility] %IG 0.1 % 0.0 - 0.[address] [facility] al %NRBC 0.0 % 0.0 - 0.0 [facility] al Neutrophils [#/volume] in Blood by Automated count 18.55 10^3/uL 2. 00 - 6.90 H [facility] Lymphocytes [#/volume] in Blood by Automated count 0.47 10^3/uL 0.60 - 3.40 L [facility] Monocytes [#/volume] in Blood by Automated count 2.16 10^3/uL 0.00 - 0.90 H [facility] Eosinophils [#/volume] in Blood by Automated count 0.09 10^3/uL 0.00 - 0.70 [facility] Basophils [#/volume] in Blood by Automated count 0.04 10^3/uL 0.00 - 0.20 [facility] #IG 0.03 10^3/uL 0.00 - 0.10 [facility] #NRBC 0.00 10^3/uL 0.00 - 0.00 [facility] MANUAL DIFF SEE BELOW [facility] Segmented neutrophils/100 leukocytes in Blood by Manual count 92 % 37 - 80 H [facility] BAND 1 % 0 - 5 [facility] %LYMPH 1 % 25 - [address] [facility] %MONO 6 % 3 - 8 [facility] RBC MORPH NOT INDICATED [facility] sp[facility] ID Date Data Source [id number] 01/08/2020 10:07:00 AM [facility] Name Value Range Interpretation Code Description Data Maura rce(s) Supporting Document(s) Fibrin D-dimer FEU [Mass/volume] in Platelet poor plasma 1.25 ug /mL 0.27 - 0.50 H [facility] ID Date Data Source [id number] 01/08/2020 09:52:00 AM [facility] Name Value Range Interpretation Code Description Data Maura rce(s) Supporting Document(s) Lactate [Moles/volume] in Serum or Plasma 2.9 MMOL/L 0.2 - 2.2 H [facility] ID Date Data Source [id number] 01/15/2020 03:06:00 PM EDT [facility] Value Range Interpretation Code Description Data Maura rce(s) Supporting Document(s) CULTURE BLOOD [facility] spital _CULTURE BLOOD_ TEST [place] [address] CLIA# [id number] SEE SCANNED REPORT{ PRELIM ID Date Data Source [id number] 01/08/2020 10:25:00 AM [facility] Value Range Interpretation Code Description Data Maura rce(s) Supporting Document(s) Influenza virus A Ag [Presence] in Nasopharynx by Immunoassa y NEGATIVE NORMAL: NEGATIVE [facility] Influenza virus B Ag [Presence] in Nasopharynx by Immunoassa y NEGATIVE NORMAL: NEGATIVE [facility] NEGATIVENEGATIVE PROCEDURAL CO NTROL VALID KIT LOT # _[id number] 01/08/20.1025.CM . KIT EXP DATE _11/30/20 01/08/20.1025.CM .The Influenza A & B assay is a rapid molecular in vitro diagnostic testutilizing an isothermal nucleic acid amplification technology for thequalitative detection of influenza A and B viral RNA.Negative results do not preclude influenza virus infection and should not beused as the sole basis for diagnosis, treatment or other patient managementdecisions. ID Date Data Source [id number] 12/13/2019 12:15:00 PM [facility] Patient Name: CHANTALE SOLOMON : 1965 Sex: F Pt Unit #: [id number] Location:[facility] Provider: Visit Date/Time: 12/13/19 Primary Insurance: BC/BS [employer] EM[employer]YE[employer] Secondary Insurance: Self Pay Intake Vital Signs 12/13/19 12:18 Current Height 5 ft Current Weight 188 lb Weight Measurement Method Standing Scale BMI 36.7 BP 130/80 Blood Pressure Location Lt brachial Position Sitting Respiration 18 Pulse 114 H Pulse Strength Normal Pulse Source Pulse Oximeter Temp 97.7 F Temp Source Oral Pulse Oximetry (%) 95 Oxygen Delivery Method nasal canula Oxygen Flow Rate 2 Intake Visit Reasons: Rash follow-up Nurse Note: pt is here today for rash/burn in groin area pt thinks its from radiation she has last week Is patient in pain?: Yes (groin area ) Pain scale (1-10): 10 Allergies Unable to Assess Allergy (Unverified 06/28/19 12:31) sea food Allergy (Severe, Uncoded 12/13/19 12:22) Anaphylaxis PHQ-2/9 Over the last 2 weeks, how often have you been bothered by any of the following problems? 1. Little interest or pleasure in doing things: not at all 2. Feeling down, depressed, or hopeless: several days Total score: 1 3. Trouble falling or staying asleep, or sleeping too much: several days 4. Feeling tired or having little energy: several days 5. Poor appetite or overeating: several days 6. Feeling bad about yourself - or that you are a failure or have let yourself and your family down:several days 7. Trouble concentrating on things, such as reading the newspaper or watching television: not at all 8. Moving or speaking so slowly that other people could have noticed? - Or the opposite - being so fidgety or restless that you have been moving around a lot more than usual: not at all 9. Thoughts that you would be better off or of hurting yourself in some way: not at all Total score: 5 If you checked off any problems, how difficult have these problems made it for you to do your work, take care of things at home, or get along with other people?: not difficult at all Source: Developed by Drs. Jose Miguel, Clara Bernabe, Pablo Clement and colleagues, with an educational chance from [employer]. 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 APPEARS AFTER FINISHING RADIATION FOR BONE CANCER IN HIP VERY SORE Current symptoms: Reports erythema, blistering and scaling Associated symptoms: Reports cough Review of Systems Const All systems reviewed are unremarkable except as noted in HPI and below Reports system reviewed and no additional complaints, except as documented ENT Reports system reviewed and no additional complaints, except as documented Card Reports system reviewed and no additional complaints, except as documented and Reports dyspnea Resp Reports cough and Reports dyspnea Details: ON CONT O2 D/T LUNG CANCER GI Reports system reviewed and no additional complaints, except as documented Reports system reviewed and no additional complaints, except as documented Musc Reports system reviewed and no additional complaints, except as documented Skin/Breast Reports erythema Details: RASH IN GROIN Neuro Reports system reviewed and no additional complaints, except as documented Psych Reports system reviewed and no additional complaints, except as documented Exam Const General: cooperative and comfortable Nutritional Appearance: overweight Orientation: alert and oriented x3 Resp Effort Inspection: normal respiratory effort Auscultation: clear to auscultation bilaterally Cardio Rate: regular rate Rhythm: regular rhythm Skin Other: 2 BLISTERED, PEELING AREAS RIGHT GROIN UNDER ABD FOLD ? RADIATION BURN Neuro General: alert and oriented x3 Cranial Nerves: CN's II-XII intact bilaterally Quality Reporting Depression/Bipolar (159/160/161/169/177) Total score: 5 Assessment Plan Assessment Plan (1) Rash: Code(s): R21 - Rash and other nonspecific skin eruption (2) Radiation burn: Status: Acute Code(s): T30.0 - Burn of unspecified body region, unspecified degree SNOMED Code(s): 114674365 Category: Medical Plan - Gail Regine: SILVADENE CREAM APPLY TO BLISTERED AREAS BID Orders Other Medications: New: silver sulfadiazine 1% (Silvadene) apply a 1.5 mm thickness 1 applic topical BID 50 grams 0RF Electronically Signed By: <Electronically signed by Gail Reyes > Date/Time Signed: 12/13/19 1236 Name Value Range Interpretation Code Description Data Maura rce(s) Supporting Document(s) ID Date Data Source [id number] 12/13/2019 10:34:00 AM [facility] Patient Name: CHANTALE SOLOMON : 1965 Sex: F Pt Unit #: [id number] Location:[facility] Provider: Visit Date/Time: 12/13/19 Primary Insurance: /[facility] Secondary Insurance: Self Pay Intake Vital Signs 12/13/19 10:36 BP 132/84 Respiration 16 Pulse 58 L Pulse Oximetry (%) 95 Oxygen Delivery Method nasal canula Oxygen Flow Rate 2 Intake Visit Reasons: CT results Right knee Is patient in pain?: Yes Pain scale (1- 10): 5 Allergies Unable to Assess Allergy (Unverified 06/28/19 12:31) sea food Allergy (Severe, Uncoded 12/13/19 12:22) Anaphylaxis [facility] Medical History Cancer (Acute) GERD (gastroesophageal reflux disease) (Acute) History of pulmonary embolus (PE) (Acute) Surgical History H/O dilation and curettage (Acute) H/O nasal septoplasty (Acute) H/O spinal fusion (Acute) H/O tubal ligation (Acute) History of appendectomy (Acute) Hx of tonsillectomy (Acute) Social History Does the Patient have a Healthcare Proxy: Yes ( JOSE) Does Patient have a DNR?: No Does Patient have a Living Will?: No household members: spouse and other details: 2 highest education level completed: high school graduate service: No 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 Her knee pain has not improved since the last office visit. 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 Today, she is experiencing sharp pain in both the lateral and medial aspect of the knee, the Right knee is worse. She states when the right knee is elevated, the skin of the superior aspect of the knee rolls. She is full weight bearing without the use of an assistive device. She denies any numbness or tingling. She takes Tylenol as needed for discomfort as needed with no relief and wakes with pain in the knee. She uses Lidocaine pain patches at night with moderate relief. Exam Const General: cooperative, no acute distress, well developed, well groomed and ill appearing (Patient on constant O2 via nasal cannula) Nutritional Appearance: overweight Orientation: alert, awake and oriented x3 [facility] Head: normal to inspection, normocephalic and atraumatic Eyes General: appearance normal, both eyes and all related structures Chest Chest: normal inspection of the chest Resp Effort Inspection: normal respiratory effort Skin Lesions: no lesions Rashes: no rashes Hair: normal Nails: normal Neuro General: alert, awake, oriented x3, gait normal, moves all extremities and normal light touch, pain and propioception Extrem Other: Inspection of right knee shows mild appreciable joint effusion. No superficial swelling, erythema or skin changes. Patient is tender over the medial and lateral joint line as well as laterally over the lateral femoral condyle. Nontender over the medial femoral condyle. Nontender over the medial or lateral tibial plateaus. She has nontender no popliteal space or calf. She has pain with terminal knee extension and limited knee flexion of 110 degrees. She maintains 5/5 knee extension and flexion. Knee is stable upon valgus and varus stress. Negative anterior posterior drawer stress. Intact sensation throughout the right lower extremity with intact peripheral pulses. Psych Appearance: grossly normal and well kempt Mental Status: mental status grossly normal Assessment Plan Assessment Plan (1) Osteoarthritis of right knee: Code(s): M17.11 - Unilateral primary osteoarthritis, right knee Plan - Doug Sotelo PA-C: CT scan of the right knee shows mild articular changes with no radiolucent bone lesions. Patient previously has had a steroid injection in her left knee with excellent benefit and is interested in a right knee injection today. I discussed the procedure of a cortisone injection to the right knee. Verbal consent was obtained. Patient verified side prior to injection. I discussed the risks of short-term corticosteroid drugs to include temporary elevated blood glucose and blood pressure. I discussed the rare risk of infection or allergic reaction of the right knee after the injection. I prepped the supralateral patellar area with ChloraPrep. I anesthetized the skin with ethyl chloride spray. Using sterile technique, I gave the patient a right knee supralateral patellar cortisone injection. Using a 22-gauge needle I injected a 5 ml mixture of the following: Bupivacaine 0.5%--2 ml, 2ml Lidocaine 1% and Depo-Medrol 40 mg/ml -1 ml. I dressed the injection site with a Band-Aid. The patient tolerated the injection very well. Patient was given postinjection information and has agreed to follow-up with our office as needed. Electronically Signed By: <Electronically signed by Doug Stoddard> Date/Time Signed: 12/13/19 1240 Name Value Range Interpretation Code Description Data Maura rce(s) Supporting Document(s) ID Date Data Source [id number] 11/12/2019 01:14:00 PM [facility] Patient Name: CHANTALE SOLOMON : 1965 Sex: F Pt Unit #: [id number] Location:[facility] Provider: Visit Date/Time: 11/12/19 Primary Insurance: /[facility] Secondary Insurance: Self Pay Intake Vital Signs 11/12/19 13:14 Current Height 5 ft Current Weight 188 lb BMI 36.7 BP 118/71 Respiration 16 Pulse 68 Pulse Oximetry (%) 92 L Intake Visit Reasons: Knee pain Is patient in pain?: Yes Pain scale (1-10): 6 Allergies Unable to Assess Allergy (Unverified 06/28/19 12:31) [facility] Medical History Cancer (Acute) GERD (gastroesophageal reflux disease) (Acute) History of pulmonary embolus (PE) (Acute) Surgical History H/O dilation and curettage (Acute) H/O nasal septoplasty (Acute) H/O spinal fusion (Acute) H/O tubal ligation (Acute) History of appendectomy (Acute) Hx of tonsillectomy (Acute) Social History (Reviewe d 11/12/19 @ 14:47 by Doug Sotelo PA-C) Does the Patient have a Healthcare Proxy: Yes ( JOSE) Does Patient have a DNR?: No Does Patient have a Living Will?: No household members: spouse and other details: 2 highest education level completed: high school graduate service: No 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 She bumped the left knee approximately 2 months ago however initially was uncomfortable and did not have continued pain from this. She was seen and evaluated at [place] [facility] and work-up was negative for deep vein thrombosis. The left knee was aspirated on 07/13/19, followed up by a steroid injection. Today, she is having more pain in the right knee, she is experiencing sharp pain in both the later[place] medial aspect of the knee. She states when the right knee is elevated, the skin of the superior aspect of the knee rolls. She bumped the left knee on her coffee table last week, very light, however she has crunching noisesin the knee. She has sleep disturbances. Knee Pain Associated symptoms: Denies fever(s) Review of Systems Const Denies anorexia, Denies excessive sweating, Denies fatigue, Denies fever(s), Denies headache(s), Denies weight gain and Denies weight loss Eyes Denies blurry vision, Denies change in vision, Denies dry eyes, Denies irritation, Denies itchy eyesand Denies loss of vision ENT Denies abnormal hearing, Denies dysphagia, Denies dizziness, Denies headache(s), Denies lip swelling, Denies nasal congestion, Denies nasal discharge, Denies disequilibrium, Denies sinus pain,Denies sore throat and Denies throat swelling Card Denies chest pain, Denies pedal edema, Denies lightheadedness, Denies palpitations and Denies dyspnea Resp Denies cough, Denies excessive phlegm production, Denies pain on inspiration, Denies dyspnea and Denies wheezing GI Denies abdominal pain, Denies change in bowel habits, Denies dysphagia, Denies early satiety, Deniesheartburn, Denies diarrhea, Denies nausea and Denies vomiting Denies abnormal vaginal bleeding, Denies difficulty voiding, Denies pelvic pain, Denies urinary incontinence and Denies urinary urgency Musc Denies back pain, Reports arthralgias (bilateral knees), Denies limited range of motion, Denies muscle cramps and Denies muscle weakness Skin/Breast Denies breast pain, Denies change in pigmentation, Denies lesions, Denies nail changes, Denies rash and Denies unusual bruising Neuro Denies abnormal hearing, Denies dizziness, Denies headache(s), Denies loss of vision, Denies memory loss, Denies paresthesias and Denies disequilibrium Psych Denies abnormal sleep pattern, Denies anxiety, Denies change in appetite, Denies depression, Denies irritability and Denies memory loss Endo Denies cold intolerance, Denies excessive sweating, Denies fatigue, Denies polyphagia, Denies polydipsia, Denies polyuria and Denies palpitations Valente/Lymph Denies easy bleeding, Denies easy bruising and Denies lymphadenopathy Aller/Immun Denies urticaria, Denies itchy eyes, Denies lip swelling, Denies seasonal rhinorrhea, Denies throat swelling and Denies wheezing Exam Const General: cooperative, no acute distress, well developed, well groomed and ill appearing (Patient on constant O2 via nasal cannula) Nutritional Appearance: overweight Orientation: alert, sergio ke and oriented x3 [facility] Head: normal to inspection, normocephalic and atraumatic Eyes General: appearance normal, both eyes and all related structures Chest Chest: normal inspection of the chest Resp Effort Inspection: normal respiratory effort Skin Lesions: no lesions Rashes: no rashes Hair: normal Nails: normal Neuro General: alert, awake, oriented x3, gait normal, moves all extremities and normal light touch, pain and propioception Extrem Other: Inspection of right knee shows mild appreciable joint effusion. No superficial swelling, erythema or skin changes. Patient is tender over the medial and lateral joint line as well as laterally over the lateral femoral condyle. Nontender over the medial femoral condyle. Nontender over the medial or lateral tibial plateaus. She has nontender no popliteal space or calf. She has pain with terminal knee extension and limited knee flexion of 110 degrees. She maintains 5/5 knee extension and flexion. Knee is stable upon valgus and varus stress. Negative anterior posterior drawer stress. Intact sensation throughout the right lower extremity with intact peripheral pulses. Psych Appearance: grossly normal and well kempt Mental Status: mental status grossly normal Assessment Plan Assessment Plan (1) Knee pain: Code(s): M25.569 - Pain in unspecified knee Plan - Doug Sotelo PA-C: Patient is suffering from acute right knee pain. X-rays of the right knee are predominantly unremarkable except for very mild lateral patellar tilting and patellofemoral narrowing. Patient isquite tender today and has a significant past medical history for adenocarcinoma of the lung with metastatic bone cancer. Recently CT of her abdomen and pelvis showed metastatic disease within which she believes is the proximal aspect of her right femur. Given her onset of right knee pain despite any recent convincing injury, I feel we should proceed first with CT scan of the right knee before beginning conservative treatment options such as a steroid injection. Metastatic disease of the distal femur must be ruled out. We will proceed with CT scan of the right knee and the patient will follow-up as soon as possible. Orders: Orders: CT Lower extremity w/o cont 1 Week (2) Right knee pain: Code(s): M25.561 - Pain in right knee Electronically Signed By: <Electronically signed by Doug Stoddard> Date/Time Signed: 11/12/19 1452 Name Value Range Interpretation Code Description Data Maura e(s) Supporting Document(s) ID Date Data Source [id number] 11/12/2019 12:45:00 PM [facility] [address] [place] [address] [phone] NAME SEX PT STATUS ACCOUNT NUMBER CHANTALE SOLOMON REG REF [id number] ORDERING PHYSICIAN LOCATION MEDICAL RECORD NO. Doug COVINGTON Mckinleyrosyladarius ERICH [id number] ATTENDING PHYSICIAN DATE OF DATE OF EXAM/TIME RegineGail 1965 11/12/19 / 1 TYPE / EXAM Xray Knee Comp 4 or more RT REASON FOR EXAM pain, ortho COMPARISON: July 13, 2019 FINDINGS: No fracture or dislocation is seen. However, degenerative changes, including loss of joint space ismild in all 3 compartments. No significant joint effusion. No lytic or blastic osseous lesion is seen. Standing images were acquired, as well. Single images raise the possibility of chondromalacia involving left lateral tibial plateau. Clinical correlation advised. IMPRESSION: 1. No fracture or dislocation. 2. No significant joint effusion on either side. 3. Early degenerative changes. 4. 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 Reported By Paulino Harper MD on 11/12/19 1245 Signed By Paulino Harper MD on 11/12/19 1248 Date Time CC: Paulino Harper MD; Gail DRAINLAYER Regine Techn: [id number] Trans Dt/Tm: Trans by: DT Prt Dt/Tm: [id number]: Total DLP = 0.00 mGy-cm Fluoroscopy Time (in secs): Name Value Range Interpretation Code Description Data Maura rce(s) Supporting Document(s) ID Date Data Source [id number] 11/12/2019 12:45:00 PM [facility] [address] [place] [address] [phone] NAME SEX PT STATUS ACCOUNT NUMBER ANABELLA SOLOMONINE Jeremiah Cr REG REF [id number] ORDERING PHYSICIAN LOCATION MEDICAL RECORD NO. Doug COVINGTON [facility] [id number] ATTENDING PHYSICIAN DATE OF DATE OF EXAM/TIME Regine,Gail 1965 11/12/19 / 1221 TYPE / EXAM Xray Knee comp 4 or more LT REASON FOR EXAM pain, ortho COMPARISON: July 13, 2019 FINDINGS: No fracture or dislocation is seen. However, degenerative changes, including loss of joint space ismild in all 3 compartments. No significant joint effusion. No lytic or blastic osseous lesion is seen. Standing images were acquired, as well. Single images raise the possibility of chondromalacia involving left lateral tibial plateau. Clinical correlation advised. IMPRESSION: 1. No fracture or dislocation. 2. No significant joint effusion on either side. 3. Early degenerative changes. 4. 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 Reported By Paulino Harper MD on 11/12/19 1245 Signed By Paulino Harper MD on 11/12/19 1248 Date Time CC: Paulino Harper MD; Gail DRAINLAYER Regine Techn: EBEBR Trans Dt/Tm: Trans by: DT Prt Dt/Tm: [id number]: Total DLP = 0.00 mGy-cm Fluoroscopy Time (in secs): Name Value Range Interpretation Code Description Data Maura rce(s) Supporting Document(s) Procedure Social History Code Duration Value Status Description Data Source(s ) Smoking 10/05/2020 12:46:34 PM EST Ex-smoker (finding) complet ed Ex-smoker (finding) CJ (Cesar Barrow MD [facility]) Smoking 06/15/2020 01:52:34 PM EDT Ex-smoker (finding) complet ed Ex-smoker (finding) CJ (Cesar Barrow MD [facility]) Smoking 05/25/2020 12:00:00 AM EDT Quit completed Quit [facility] ([facility], ) Smoking 03/13/2020 12:00:00 AM EDT Patient is a former smoker completed Patient is a former smoker [facility] ([facility], ) Vital Signs ID Date Data Source UNK Name Value Range Interpretation Code Description Data Source(s) Oxygen saturation in Arterial blood by Pulse oximetry 99 % 99 % [facility] (Osmel Al[facility]) Heart rate 69 /min 69 /min [facility] (Osmel [facility]) Diastolic blood pressure 64 mm[Hg] 64 mm[Hg] [facility] (Osmel Alvarez MD) Systolic blood pressure 98 mm[Hg] 98 mm[Hg] [facility] (Osmel Al[facility] MD) Body temperature 97.5 [degF] 97.5 [degF] [facility] (Osmel Alvarez MD) Body mass index (BMI) [Ratio] 35.3 kg/m2 35.3 k g/m2 [facility] (Osmel Alvarez MD) Body weight 181.00 [lb_av] 181.00 [lb_av] [facility] (Osmel Alvarez MD) Body height 60 [in_i] 60 [in_i] [facility] (Osmel Alvarez MD) 5'0" Body mass index (BMI) [Ratio] 36.1 kg/m2 36.1 k g/m2 [facility] ([facility], [facility]) Body height 60 [in_i] 60 [in_i] [facility] ([facility]) 5'0" Body weight 185.00 [lb_av] 185.00 [lb_av] [facility] ([facility], [facility]) Body temperature 95.5 [degF] 95.5 [degF] [facility] ([facility]) Oxygen saturation in Arterial blood by Pulse oximetry 100 % 100 % [facility] ([facility], [facility]) Respiratory rate 18 /min 18 /min [facility] ( [facility], [facility]) Heart rate 70 /min 70 /min [facility] ([facility], [facility]) Diastolic blood pressure 83 mm[Hg] 83 mm[Hg] [facility] ([facility], [facility]) Systolic blood pressure 133 mm[Hg] 133 mm[Hg] [facility] ([facility], [facility]) Oxygen saturation in Arterial blood by Pulse oximetry 96 % 96 % [facility] (Osmel Alvarez MD) Heart rate 74 /min 74 /min [facility] (Osmel Alvarez MD) Diastolic blood pressure 80 mm[Hg] 80 mm[Hg] [facility] (Osmel Alvarez MD) Systolic blood pressure 130 mm[Hg] 130 mm[Hg] M [facility] (Osmel Alvarez MD) Body temperature 97.5 [degF] 97.5 [degF] [facility] (Osmel Alvarez MD) Body mass index (BMI) [Ratio] 36.7 kg/m2 36.7 k g/m2 [facility] (Osmel Alvarez MD) Body weight 188.00 [lb_av] 188.00 [lb_av] [facility] (Osmel Alvarez MD) Body height 60 [in_i] 60 [in_i] [facility] (Osmel Alvarez MD) 5'0" Oxygen saturation in Arterial blood by Pulse oximetry 99 % 99 % [facility] (Osmel Alvarez MD) 2l Heart rate 73 /min 73 /min [facility] (Osmel Alvarez MD) Diastolic blood pressure 85 mm[Hg] 85 mm[Hg] [facility] (Osmel Alvarez MD) Systolic blood pressure 139 mm[Hg] 139 mm[Hg] M [facility] (Osmel Alvarez MD) Body temperature 97.7 [degF] 97.7 [degF] [facility] (Osmel Alvarez MD) Body mass index (BMI) [Ratio] 36.1 kg/m2 36.1 k g/m2 [facility] (Osmel Alvarez MD) Body weight 185.00 [lb_av] 185.00 [lb_av] [facility] (Osmel Alvarez MD) Body height 60 [in_i] 60 [in_i] [facility] (Osmel Alvarez MD) 5'0" Body weight 87.091 kg 87.091 kg [facility] ([facility], ) [place] body weight 100 [lb_av] 100 [lb_av] [facility] ([facility], ) Body mass index (BMI) [Ratio] 37.5 kg/m2 37.5 k g/m2 [facility] ([facility]) Body weight 192.00 [lb_av] 192.00 [lb_av] [facility] ([facility]) Body height 60 [in_i] 60 [in_i] [facility] ([facility]) 5'0" Body weight 87.091 kg 87.091 kg [facility] ([facility]) [place] body weight 100 [lb_av] 100 [lb_av] [facility] ([facility]) Body mass index (BMI) [Ratio] 37.5 kg/m2 37.5 k g/m2 [facility] ([facility]) Body weight 192.00 [lb_av] 192.00 [lb_av] [facility] ([facility]) Body height 60 [in_i] 60 [in_i] [facility] ([facility]) 5'0" Body temperature 96.9 [degF] 96.9 [degF] [facility] ([facility]) Oxygen saturation in Arterial blood by Pulse oximetry 992 % 992 % [facility] ([facility]) Heart rate 79 /min 79 /min [facility] ([facility]) Diastolic blood pressure 80 mm[Hg] 80 mm[Hg] [facility] ([facility]) Systolic blood pressure 120 mm[Hg] 120 mm[Hg] [facility] Body weight 88.906 kg 88.906 kg [facility] ([facility]) Body mass index (BMI) [Ratio] 38.3 kg/m2 38.3 k g/m2 [facility] ([facility]) Body weight 196.00 [lb_av] 196.00 [lb_av] [facility] ([facility]) Body height 60 [in_i] 60 [in_i] [facility] ([facility]) 5'0" Body weight 88.906 kg 88.906 kg [facility] ([facility]) Body mass index (BMI) [Ratio] 38.3 kg/m2 38.3 k g/m2 [facility] ([facility]) Body weight 196.00 [lb_av] 196.00 [lb_av] [facility] ([facility]) Body height 60 [in_i] 60 [in_i] [facility] ([facility]) 5'0" Body weight 88.906 kg 88.906 kg [facility] ([facility]) Body mass index (BMI) [Ratio] 38.3 kg/m2 38.3 k g/m2 [facility] ([facility]) Body weight 196.00 [lb_av] 196.00 [lb_av] [facility] ([facility]) Body height 60 [in_i] 60 [in_i] [facility] ([facility]) 5'0" Body temperature 97.4 [degF] 97.4 [degF] [facility] ([facility]) Oxygen saturation in Arterial blood by Pulse oximetry 1002 % 1002 % [facility] ([facility]) Heart rate 102 /min 102 /min [facility] ([facility]) Diastolic blood pressure 80 mm[Hg] 80 mm[Hg] [facility] ([facility]) Systolic blood pressure 140 mm[Hg] 140 mm[Hg] [facility] ([facility]) Body weight 87.091 kg 87.091 kg [facility] ([facility]) Body mass index (BMI) [Ratio] 37.5 kg/m2 37.5 k g/m2 [facility] ([facility]) Body weight 192.00 [lb_av] 192.00 [lb_av] [facility] ([facility]) Body height 60 [in_i] 60 [in_i] [facility] ([facility]) 5'0" Body weight 87.091 kg 87.091 kg [facility] ([facility]) Body mass index (BMI) [Ratio] 37.5 kg/m2 37.5 k g/m2 [facility] ([facility]) Body weight 192.00 [lb_av] 192.00 [lb_av] [facility] ([facility]) Body height 60 [in_i] 60 [in_i] [facility] ([facility], ) 5'0" Oxygen saturation in Arterial blood by Pulse oximetry 96 % 96 % [facility] ([facility] ) Body mass index (BMI) [Ratio] 38.9 kg/m2 38.9 k g/m2 [facility] ([facility] ) Body weight 199.12 [lb_av] 199.12 [lb_av] [facility] ([facility] ) Body height 60 [in_i] 60 [in_i] [facility] ([facility] ) 5'0" Heart rate 92 /min 92 /min [facility] ([facility] ) Diastolic blood pressure 90 mm[Hg] 90 mm[Hg] [facility] ([facility] ) Systolic blood pressure 142 mm[Hg] 142 mm[Hg] M [facility] ([facility] ) ID Date Data Source [id number] 12/23/2020 12:19:[address] [facility] Name Value Range Interpretation Code Description Data Source(s) WEIGHT RECORDED 186.00 pounds 186.00 pounds [facility] Height [address] [facility] ID Date Data Source [id number] 12/04/2020 12:56:[address] [facility] Name Value Range Interpretation Code Description Data Source(s) WEIGHT RECORDED 183.40 pounds 183.40 pounds [facility] Height [address] [facility] ID Date Data Source [id number] 10/05/2020 10:18:[address] [facility] Name Value Range Interpretation Code Description Data Source(s) WEIGHT RECORDED 188.20 pounds 188.20 pounds [facility] Height [address] [facility] ID Date Data Source [id number] 08/23/2020 09:36:[address] [facility] Name Value Range Interpretation Code Description Data Source(s) WEIGHT RECORDED 194.00 pounds 194.00 pounds [facility] Height [address] [facility] ID Date Data Source [id number] 03/01/2020 09:04:[address] [facility] Name Value Range Interpretation Code Description Data Source(s) WEIGHT RECORDED 197.10 pounds 197.10 pounds [facility] Height [address] [facility] WEIGHT RECORDED 189.30 pounds 189.30 pounds [facility] Height [address] [facility] WEIGHT RECORDED 197.10 pounds 197.10 pounds [facility] Height [address] [facility] ID Date Data Source [id number] 02/24/2020 09:13:[address] [facility] Name Value Range Interpretation Code Description Data Source(s) WEIGHT RECORDED 195.00 pounds 195.00 pounds [facility] Height [address] [facility] WEIGHT RECORDED 192.30 pounds 192.30 pounds [facility] Height 60 Inches 060 Inches [facility]
[2020-12-23 14:24] LABS: ABG HCO3 29.2 MEQ/L (22.0-26.0); ABG O2 SATURATION 99.6 % (95.0-99.0); ABG PARTIAL PRESSURE CO2 41.7 mmHg (35.0-45.0); ABG TOTAL CO2 30.5 MEQ/L (22.0-29.0); ABG pH (ARTERIAL) 7.463 UNITS (7.350-7.450)
[2020-12-23 14:29] LABS: HEMATOCRIT 29.2 % (36.0-47.0); HEMOGLOBIN 9.5 g/dl (12.0-15.5); MEAN CORPUSCULAR HEMOGLOBIN 33.9 pg (27.0-33.0); MEAN CORPUSCULAR HGB CONC 32.5 g/dl (32.0-36.5); MEAN CORPUSCULAR VOLUME 104.3 fl (80.0-96.0); PLATELET COUNT, AUTOMATED 223 10^3/uL (150-450)
[2020-12-23 14:30] LABS: WHITE BLOOD COUNT 5.9 10^3/uL (4.0-10.0)
[2020-12-23 14:40] LABS: ALBUMIN 2.8 GM/DL (3.2-5.2); ALT/SGPT 80 U/L (12-78); BILIRUBIN,TOTAL 0.1 MG/DL (0.2-1.0); BLOOD UREA NITROGEN 22 MG/DL (7-18); CALCIUM LEVEL 8.2 MG/DL (8.5-10.1); CARBON DIOXIDE LEVEL 30 MEQ/L (21-32); CHLORIDE LEVEL 100 MEQ/L (98-107); CREATININE FOR GFR 0.91 MG/DL (0.55-1.30); GLOMERULAR FILTRATION RATE > 60.0 (>51); GLUCOSE, FASTING 87 MG/DL (70-100); POTASSIUM SERUM 4.4 MEQ/L (3.5-5.1); SODIUM LEVEL 138 MEQ/L (136-145); TOTAL PROTEIN 6.5 GM/DL (6.4-8.2)
[2020-12-23] MEDS ORDERED: GLUCAGON INJ 1MG VIAL SC PRN (14:45)
[2020-12-23] MEDS ORDERED: GLUCOSE 4GM CHEW TABLET PO PRN (14:45)
[2020-12-23] MEDS ORDERED: DEXTROSE 50% 50 ML SYRINGE IV PRN (14:45)
--- NOTE | 2020-12-23 14:59 | HPE ---
HISTORY AND PHYSICAL DATE OF ADMISSION: 12/23/2020 PRIMARY CARE PHYSICIAN: Gail Reyes INSURANCE CLERK: Dr. 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 HISTORY: Chantale Hurst is a 55-year-old patient who was admitted to [facility] 12/20/2020 for a left-sided pneumonia, thought to be postobstructive. She had a CT scan of her chest done on 12/20/2020. It showed worsening left lower lobe pneumonia compared to CT of the chest from 11/24/2020. No significant change in atelectasis of most of the left upper lobe. Etiology is not actually defined. Left hilar mass is not excluded. Consider bronchoscopy for further evaluation. She was treated with azithromycin and ceftriaxone but did not make clinical improvement, so she was transferred to [facility]. She recently was hospitalized at [facility] for COVID infection the end of November. She tested COVID negative during her current hospitalization at [facility]. 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 Marlin Carter. TREATMENT HISTORY: Had concurrent chemotherapy with radiation therapy with cisplatin/etoposide February through April 2018, adjuvant durvalumab June 2018-October 2019. Was found to have L5 metastasis January 2019. Received palliative radiation therapy. T12 metastasis April 2019. Received palliative radiation therapy. Started denosumab July 2019. Found to have a metastasis in the right femur and hip November 2019. Received radiation therapy. Began carboplatin/pemetrexed/bevacizumab four cycles December 2019-March 2020. Has been on maintenance pemetrexed/bevacizumab since March 2020. Last dose being July 2020. Was discontinued because of decreased ejection fraction of 40%-45% on echocardiogram done 08/18/2020. PAST MEDICAL HISTORY: 1. Hypertension. 2. History of pulmonary embolism of unknown date. 3. Atrial fibrillation, onset August 2020, for which she was admitted at [facility]. 4. History of chronic obstructive pulmonary disease (COPD). 5. Thrombocytopenia. 6. Chronic anemia. 7. Gastroesophageal reflux disease (GERD). 8. She was admitted February 2020 for pneumonia and November 2020 for COVID. SURGICAL HISTORY: 1. Appendectomy. 2. Lumbar disc surgery in the dorsal spine. 3. Tonsillectomy. 4. Tubal ligation. 5. She has an intravenous (IV) port. SOCIAL HISTORY: Quit smoking 2 years ago. A pack per day smoker before that. FAMILY HISTORY: Father had a stroke and had diabetes. Mother had COPD. ALLERGIES: PENICILLIN, sea food. REVIEW OF SYSTEMS: She is short of breath. She says she has been hoarse, and her voice has been "squeaky" since her COVID infection. She is more short of breath than usual. Denies hemoptysis, rectal bleeding, hematuria. MEDICATIONS: Her medications at [facility] were: - aspirin 81 mg daily - furosemide 20 mg daily - folic acid 1 mg daily - Protonix 40 mg daily - Lactobacillus tablets daily - magnesium oxide 400 mg daily - azithromycin 500 mg IV daily - ceftriaxone 1 gram IV daily - DuoNeb daily - Bystolic 5 mg daily - diltiazem CD 180 mg daily - Xarelto 10 mg daily - Tylenol as needed - albuterol as needed - regular insulin per sliding scale - methylprednisolone 125 mg, frequency not specified (I cannot tell if she is getting that or not. It looks like it might have bee discontinued on 12/22/2020). PHYSICAL EXAMINATION: Blood pressure 126/75, pulse 78, respirations 22, 98% oxygen saturation on 2 liters, 96.9 degree. GENERAL APPEARANCE: Resting comfortably. No distress. She does have a bit of a glottic wheezing going on. Voice is a bit husky. HEENT: Looks a little cushingoid, otherwise unremarkable. LUNGS: NO air movement appreciated on the left with diffuse crackles. Good air movement on the right but some wheezing. HEART: Regular rate and rhythm. A 1/6 systolic ejection murmur. ABDOMEN: Soft, nontender. No masses. EXTREMITIES: No clubbing or cyanosis. Trace pedal edema. Moves arms and legs with equal strength. Labs are all pending. IMPRESSION: 1. Left-sided pneumonia, unresponsive to current therapy. Will change antibiotic to Zosyn and vancomycin due to this probably being a healthcare-associated pneumonia. She was transferred for bronchoscopy, but it looks like this might be a chronic process. I have spoken with Dr. Ashley Hunter, who will see the patient in consultation. I have ordered a repeat CT scan of the chest, and that needs to be evaluated before we make any decision about bronchoscopy. It is more likely that this is post radiation scarring and not something that can be alleviated through bronchoscopy. 2. Lung cancer, metastatic. Patient has a perception that her lung tumor is "gone" in discussing with her. She does have metastasis and have treated her with palliative radiation. 3. History of pulmonary embolism. Continue her Xarelto after a decision made about bronchoscopy. In the meantime, we will hold this and just use Lovenox. If it looks like she is not going to have her procedure, then I will switch her back to her Xarelto. 4. Hypertension. Continue current regimen. 5. History of decreased ejection fraction (technically not reduced ejection fraction but reduced from normal). Repeat echocardiogram ordered.
[2020-12-23 15:04] LABS: ATYPICAL LYMPH 2 % (0-5); HYPERSEGMENTED POLYS 2+; LYMPHOCYTES 17 % (16-44); METAMYELOCYTES 1 % (0-0); MONOCYTES 23 % (0-5); MYELOCYTES 1 % (0-0); NEUTROPHILS 56 % (28-66)
[2020-12-23 15:09] LABS: PLATELET ESTIMATE NORMAL (NORMAL)
--- NOTE | 2020-12-23 15:12 | HPE ---
HISTORY AND PHYSICAL DATE OF ADMISSION: 12/23/2020 ADDENDUM: I was going to place Chantale on Zosyn and Vancomycin; however, she does have a penicillin allergy. I do want to cover her hospital-associated pneumonia such as MRSA, so we will use ceftaroline 600 mg IV q.12 h. instead. She tolerated Rocephin at a 1 G dose while at [facility], so the cephalosporins should be acceptable.
--- NOTE | 2020-12-23 15:41 | REP ---
INDICATION: c/w 12/20 at [facility]. COMPARISON: 04/05/2020 CT, PET-CT 10/10/2020 TECHNIQUE: Noncontrast examination with coronal and sagittal reconstructions provided. FINDINGS: Large airspace opacity in the perihilar and left upper lung zone with air bronchograms within it now completely fills the left upper lobe space which previously had a small of aerated apical lung segment nodules and masses are obscured in this opacity. There is consolidative appearance in the deep sulcus of the left lower lobe with air bronchograms from the hilum toward the base but sparing the most inferior medial basal segment. The right lung shows some areas of peripheral pleural thickening and scar laterally in the lower lobe but no pleural effusion, acute infiltrate, new parenchymal nodules or masses. Heart size mildly prominent with left atrial and left ventricular enlargement. There is no pericardial thickening or fluid. See no hiatal hernia. There are calcifications of the aortic arch and descending aorta unchanged. Do not see a pathologic sized mediastinal nodes. Left hilar nodes are difficult to exclude as the hilum is obscured by confluent density and the bronchograms on the left side. No definite right hilar adenopathy. No axillary or supraclavicular pathologic sized adenopathy or mass. Gonzalez rods are again seen from T4 through T11. Sclerotic T12 pedicle on the right is again noted. The L1 superior endplate depression is unchanged. The grade 2-3 anterior wedge compression fracture of T8 is unchanged. There is some sclerosis at the upper aspect of the sternum near the articulation with the manubrium a suspicious for metastatic disease those portions of humeral heads scapulae clavicles and ribs seen unchanged. There is no splenomegaly but calcifications in the spleen from old granulomatous disease again noted liver is unchanged without acute finding. Adrenal glands intact gallbladder without calcified stones or mass renal glands without mass. Upper poles kidneys show a small cortical cyst on the left. Visualized bowel loops and stomach intact. [id number] catheter via the right jugular route is again seen. IMPRESSION: 1. Large confluent airspace opacity left mid and upper lung zone with no aeration remaining in that area and with some air bronchograms again noted. Some volume loss overall in that left lung with compensatory hyperinflation of the right. What represents fibrosis and what represents tumor a cannot be determined by CT. 2. No gross effusion. Right lung grossly clear except for some subpleural and pleural fibrotic change lateral basal segment right lower lobe, stable. 3. Compression fractures at T8 and L1 are unchanged with Gonzalez rods in the thoracic spine from T4 through T11. Sclerotic T12 pedicle. Sclerosis superior margin of the sternum near the manubrium suggesting metastatic disease. Other findings as described. No other new or significant finding. <Electronically signed by Issac Damian > 12/23/20 0032
[2020-12-23] MEDS: methylPREDNISolone 40MG 1ML VIAL IV SCH (15:42)
[2020-12-23 15:59] VITALS: BP 112/69
[2020-12-23] MEDS: HumaLOG INSULIN (NovoLOG) PER UNIT SC SCH ×2 (17:30→21:00)
[2020-12-23] MEDS: ENOXAPARIN 80MG/0.8ML SYRINGE (J1650 PER 10MG) SC SCH (17:44)
[2020-12-23] MEDS: LACTOBACILLUS ACIDOPHILUS CAP (BACID) PO SCH (17:44)
[2020-12-23] MEDS: CEFTAROLINE FOSAMIL 600 MG in D5W MINI-BAG PLUS 50 ML IV SCH (17:45)
[2020-12-23 20:00] VITALS: BP 116/70
[2020-12-23] MEDS: PANTOPRAZOLE 40MG TAB (PROTONIX) PO SCH (21:41)
[2020-12-23] MEDS ORDERED: ACETAMINOPHEN TAB 650MG DOSE (2X325MG) PO ONE (21:45)
[2020-12-23] MEDS: guaiFENesin SYRUP 200 MG/10 ML UDC PO PRN (23:27)
[2020-12-24] VITALS: BP 117/66
[2020-12-24] MEDS: IPRATROPIUM 0.5MG/ALBUTEROL 2.5MG INH SOL UD 3ML (DUONEB) NEB SCH ×4 (01:29→19:23)
[2020-12-24 04:00] VITALS: BP 120/64
[2020-12-24] MEDS ORDERED: DOCUSATE SODIUM 100MG CAPSULE PO ONE (04:45)
[2020-12-24] MEDS: ENOXAPARIN 80MG/0.8ML SYRINGE (J1650 PER 10MG) SC SCH (05:12)
[2020-12-24] MEDS: CEFTAROLINE FOSAMIL 600 MG in D5W MINI-BAG PLUS 50 ML IV SCH ×2 (05:12→18:01)
[2020-12-24 05:43] LABS: HEMATOCRIT 28.1 % (36.0-47.0); HEMOGLOBIN 9.1 g/dl (12.0-15.5); MEAN CORPUSCULAR HEMOGLOBIN 33.6 pg (27.0-33.0); MEAN CORPUSCULAR HGB CONC 32.4 g/dl (32.0-36.5); MEAN CORPUSCULAR VOLUME 103.7 fl (80.0-96.0); PLATELET COUNT, AUTOMATED 198 10^3/uL (150-450); RED BLOOD COUNT 2.71 10^6/uL (4.00-5.40); WHITE BLOOD COUNT 5.8 10^3/uL (4.0-10.0)
[2020-12-24 06:09] LABS: CALCIUM LEVEL 8.3 MG/DL (8.5-10.1); CREATININE FOR GFR 1.1 MG/DL (0.55-1.30); GLOMERULAR FILTRATION RATE 54.9 (>51); POTASSIUM SERUM 4.1 MEQ/L (3.5-5.1)
[2020-12-24 07:29] VITALS: BP 147/73
[2020-12-24] MEDS: HumaLOG INSULIN (NovoLOG) PER UNIT SC SCH ×5 (07:30→20:19)
[2020-12-24] MEDS: LACTOBACILLUS ACIDOPHILUS CAP (BACID) PO SCH ×3 (08:19→18:01)
[2020-12-24] MEDS: diltiaZEM **CD** 180 MG CAP PO SCH (08:20)
[2020-12-24] MEDS: methylPREDNISolone 40MG 1ML VIAL IV SCH ×2 (08:20→18:00)
[2020-12-24] MEDS: NEBIVOLOL 5 MG TAB (BYSTOLIC) PO SCH (08:20)
--- NOTE | 2020-12-24 09:52 | IPN ---
PROGRESS NOTE DATE: 12/24/2020 SUBJECTIVE: Chantale still feels wheezy. CT scan of the chest shows what looks to be chronic changes. She would like to see Pulmonology and I have a consultation in for Dr. Hunter. Still coughing up large amounts of sputum which I sent for a culture. Her shortness of breath remains the same normal oxygenation. PHYSICAL EXAMINATION: VITAL SIGNS: Blood pressure 143/73, pulse 77, 100% O2 saturation. GENERAL APPEARANCE: Lying in bed in no distress. She has some glottic upper airway wheezing. LUNGS: Has scant wheezing in the right lung. The left lung has poor air movement, diffuse rales. Dull to percuss. HEART: Regular rate and rhythm. ABDOMEN: Soft, nontender, no masses. No peripheral edema. LABORATORY DATA: White count is 5.8, hemoglobin 9.1, platelets 198,000, sodium 138, potassium 4.1, BUN 23, creatinine 1.1, glucose 133. IMPRESSION: 1. Pneumonia of left lung, ? postobstructive, continue Ceftaroline. She has an Acapella device, bronchodilator has been ordered. She is breathless but her oxygenation is normal, probably related to the chronic left lung problem. I spoke to Dr. Hunter and will see the patient in consultation but it is unlikely the patient will need bronchoscopy. These changes look like they are post-radiation scarring. 2. Metastatic lung cancer, bone metastases for which he has received radiation therapy. 3. History of pulmonary embolism. She is on Lovenox until the definitive decision is made about bronchoscopy in which case will switch her back to Xarelto. 4. History of congestive heart failure, decreased ejection fraction (technically not systolic heart failure/reduced ejection fraction but reduced to normal). Repeat echo has been ordered. 5. Hypertension, well-controlled on current regimen.
[2020-12-24 11:47] VITALS: BP 116/58
[2020-12-24] MEDS: FLEET ENEMA PR PRN (11:56)
[2020-12-24] MEDS: ACETAMINOPHEN TAB 650MG DOSE (2X325MG) PO PRN ×2 (11:57→20:11)
--- NOTE | 2020-12-24 14:11 | CR ---
PULMONARY CONSULTATION DATE: 12/23/2020 CHIEF COMPLAINT: Coughing and wheezing. HISTORY OF PRESENT ILLNESS: Ms. Hurst is a 55-year-old female with a past medical history of chronic obstructive pulmonary disease, obstructive sleep apnea, prior nicotine dependence, history of atrial fibrillation, P.E. and a history of metastatic adenocarcinoma who was transferred here from [facility] due to her persistent wheezing and coughing. The patient has a history of previous episodes of pneumonia verus COPD exacerbation in the past. She does follow with Dr. Garcia in our Pulmonary Office and has had previous episodes requiring antibiotics and steroids, generally a few times in the past year or two. She does have a history of somewhat chronic cough which is productive of usually white thick sputum. She was recently hospitalized at [facility] in November for COVID-19 and was treated with Remdesivir for 5 days before being discharged with Levaquin for an additional 3 days. She did not receive any additional corticosteroids up her discharge. She states she was having significant coughing and wheezing upon her discharge from [facility], however was told that her symptoms would continue to improve, when the did not. She is on nasal cannula oxygen supplementation chronically at 2 liters a minute and she did not have any worsening hypoxia. She denied any worsening shortness of breath or chest pain but her main symptoms were persistent wheezing as well as increasing cough with mucous production and she reports now very yellow and thick mucous which she states is difficult for her to expectorate. The patient also reports that her voice has been more hoarse as well as in the past few weeks which is not her usual. She had been compliant with her home inhalers of Breo 200/25 one puff daily as well as Spiriva 2 puffs daily. She was also using her rescue inhaler and her nebulized bronchodilator more frequently which previously she reports she only has to use rarely. At home she did not notice any significant fevers or chills, and she had not noticed any worsening lower extremity edema. She does have a diuretic listed as a home medication and she is also on anticoagulation as well. The patient presented back to [facility] given her worsening wheezing and cough with the difficult to expectorate mucous. She was told that she had pneumonia on the left side and was started on antibiotics there with Azithromycin and Ceftriaxone. She did not have any significant improvement in the next day or two and so was transferred to [facility] for further evaluation. Her repeat COVID test during her repeat hospitalization was negative at [place]. PAST MEDICAL HISTORY: The patient's past medical history is significant for: 1. Hypertension. 2. History of P.E. 3. Atrial fibrillation on anticoagulation. 4. History of chronic obstructive pulmonary disease. 5. History of chronic anemia. 6. Gastroesophageal reflux disease. 7. History of metastatic adenocarcinoma - status post chemotherapy and radiation initially in 2018. The patient was on immunotherapy but had progression in terms of skeletal metastatic disease for which she received palliative radiation. Most recently she had been on maintenance Pemetrexed and Bevacizumab which were held due to reduced EF. 8. Obstructive sleep apnea on CPAP. PAST SURGICAL HISTORY: The patient's past surgical history is significant for: 1. Appendectomy. 2. Lumbar disk currently. 3. Tonsillectomy. 4. Tubal ligation. 5. History of chemo infusaport placement. FAMILY HISTORY: Father with history of stroke and diabetes. Mother with history of chronic obstructive pulmonary disease. SOCIAL HISTORY: Former smoker, was a pack a day quit 2 years ago. HOME MEDICATIONS: 1. Aspirin. 2. Furosemide. 3. Folic Acid. 4. Protonix. 5. Calcium. 6. Claritin. 7. Folic Acid. 8. Breo 200/25. 9. Spiriva. 10. Pantoprazole. 11. Meloxicam. 12. Albuterol as needed. 13. Potassium Chloride. 14. Xarelto. ALLERGIES: 1. PENICILLIN. 2. SEAFOOD. PHYSICAL EXAMINATION: VITAL SIGNS: Temperature 97.1, pulse 77, respirations 19, blood pressure 147/73, O2 sat 100% on 2 liters nasal cannula. INTAKE AND OUTPUT: In's 120, out 700 mL. GENERAL APPEARANCE: The patient is awake and alert. She is oriented x3. She is sitting in a chair and does not appear to be in any acute distress. She is not using any accessory muscles for respiration. She does have a bit of a hoarse voice. HEENT: Normocephalic and atraumatic. Pupils are reactive to bilaterally. NECK: Thick. No appreciable cervical adenopathy. CARDIAC: Regular rate and rhythm, normal S1, S2 with a faint systolic ejection murmur. PULMONARY: The patient has mild glottic wheezing with forceful exhalation. She has diminished breath sounds on the left with some coarse wheeze and occasional crackle. She also has expiratory wheeze and some occasional rhonchi noted on the right. ABDOMEN: Soft, obese, nontender, nondistended. Unable to palpate any masses. EXTREMITIES: There is trace pedal edema bilaterally. There does not appear to be any significant neurologic deficits. LABORATORY STUDIES: WBC 5.8, hemoglobin 9.1, platelets are 198. Chemistries - sodium is 138, potassium 4.1, chloride is 101, bicarbonate is 32, BUN 23, creatinine 1.01, glucose is 133. Sputum culture with moderate gram positive cocci in pairs, chains and clusters. IMAGING: CT chest 12/23/2020, compared to the previous CT from 04/05/[address] from 10/10/2020, the patient has continued persistent large area of consolidation in the left upper lobe with air bronchograms noted. The patient previously had a small aerated apical lung segment on the left which is now consolidated. There is also perihilar consolidation which extends into the left lower lobe with air bronchograms extending from the hilum towards the base, but sparing the most inferomedial basal segment which is unchanged compared to the previous imaging. There are some areas of pleural thickening on the right with fibroatelectatic changes in the right lower lobe, but no significant nodules or masses on the right. There is no pleural effusion on the right. There is some volume loss on the left side which is chronic with some mild compensatory hyperinflation. There is borderline cardiomegaly with mildly prominent left atrial and left ventricular enlargement. There is no significant pericardial effusion noted. There is no significant mediastinal adenopathy noted. There are granulomatous calcifications in the spleen which are chronic. Infusaport catheter in the right IJ route is seen again. There are compression fractures noted in the spine and Gonzalez rods which are unchanged. There is some sclerosis in the superior margin of the sternum. The manubrium suggesting metastatic disease. ASSESSMENT AND PLAN: Ms. Hurst is a 55-year-old female with a past medical history of COPD with prior nicotine dependence, history of obstructive sleep apnea, on CPAP, history of atrial fibrillation and a prior history of PE on anticoagulation, history of metastatic adenocarcinoma in the left lung with skeletal metastatic lesions, who presented with worsening cough and sputum production as well as wheezing for the past few weeks. The patient had previously been hospitalized at [facility] in November for COVID-19 pneumonia. She was treated with Remdesivir as well as antibiotics and likely Dexamethasone. She did not receive any additional steroids upon discharge and she states upon her discharge she was still having significant wheezing as well as cough and mucous production which did not improve over the next few weeks. She had been using her maintenance inhalers as well as her nebulized bronchodilators with minimal improvement and does feel that she has had more yellow mucous now which is difficult to expectorate as well as voice change in the past few weeks. She does have some slight nasal congestive symptoms as well as some slight postnasal drip. She denied any fevers or chills and she has not had any worsening hypoxia. She is on her usual 2 liters nasal cannula oxygen which she has been on chronically. The patient was readmitted to [facility] for possible pneumonia. She was given Ceftriaxone and Azithromycin but had limited improvement in her symptoms and was transferred here for further evaluation. The patient has remained afebrile and has not had any leukocytosis. Her repeat CT chest done shows mostly chronic changes involving the left lung. She has had chronic consolidation and atelectasis in the left upper lobe as well as the left perihilar region extending into the left lower lobe when looking back on imaging, at least as far back as April 2020. On her previous chest CT she did have a small apical region in the left upper lobe which was aerated which on this repeat CT appears to have filled in with consolidation. This is likely in the setting of perhaps worsening mucous plugging given her symptoms, although there is a question about progression in terms of her lung disease. The patient's changes on her CT had previously been thought to be due to post radiation changes. She has had fairly consistent areas of consolidation with air bronchograms and atelectasis in that left lung since her treatment in 2017. Suspect her wheezing as well as worsening mucous production is in the setting of a COPD exacerbation secondary to her recent viral illness. We did discuss that there is a potential of progression of her metastatic adenocarcinoma, however, as most of the changes in imaging are chronic, suspect this is less likely. There may be a more area of mucous plugging contributing to some of the worsening consolidation in that the left apex. The patient was started on Solu-Medrol 40 mg daily. We will increase to 40 mg q. 8 hours. The patient was started on DuoNebs q. 6 hours we will add hypertonic nebulizers with her acapella device for increased pulmonary clearance. She had previously tried Mucinex which she was unable to tolerate. Can continue with broad spectrum antibiotics although suspicion of pneumonia is less likely - She did have a sputum culture which is growing some gram positive cocci. We will check a procalcitonin to exterior work helper in deescalation as well as a result of her sputum culture to held aid in deescalation of antibiotics. The patient is on anticoagulation still for her history of P.E. she was changed from Eliquis to Lovenox. At this time the patient does not require a bronchoscopy, however we did discuss that if she has not had improvement in the next few days and there is concern for perhaps obstructing endobronchial lesion, that we could perform a bronchoscopy for a diagnosis. If she did have an endobronchial disease related to her malignancy, she may need more interventional bronchoscopy maneuvers at outside facility Continue with nasal cannula oxygen supplementation on her usual 2 liters per minute to maintain O2 sat above 90% DVT prophylaxis on AC Code Status Full code. MTDD
[2020-12-24] MEDS: SODIUM CHLORIDE 0.9% 3ML NEB SOLUTION FOR INHALATION INH SCH ×2 (14:57→19:23)
[2020-12-24 16:00] VITALS: BP 133/50
[2020-12-24] MEDS: RIVAROXABAN 10 MG TAB (XARELTO) PO SCH (18:00)
[2020-12-24 20:00] VITALS: BP 103/61
[2020-12-24] MEDS: PANTOPRAZOLE 40MG TAB (PROTONIX) PO SCH (20:11)
[2020-12-25] VITALS: BP 129/74
[2020-12-25] MEDS: methylPREDNISolone 40MG 1ML VIAL IV SCH ×3 (01:11→17:12)
[2020-12-25] MEDS: IPRATROPIUM 0.5MG/ALBUTEROL 2.5MG INH SOL UD 3ML (DUONEB) NEB SCH ×4 (02:46→19:38)
[2020-12-25] MEDS: SODIUM CHLORIDE 0.9% 3ML NEB SOLUTION FOR INHALATION INH SCH ×4 (02:46→19:38)
[2020-12-25 04:00] VITALS: BP 118/66
[2020-12-25 06:14] LABS: HEMATOCRIT 27.9 % (36.0-47.0); HEMOGLOBIN 9.1 g/dl (12.0-15.5); MEAN CORPUSCULAR HEMOGLOBIN 34.5 pg (27.0-33.0); MEAN CORPUSCULAR HGB CONC 32.6 g/dl (32.0-36.5); MEAN CORPUSCULAR VOLUME 105.7 fl (80.0-96.0); PLATELET COUNT, AUTOMATED 173 10^3/uL (150-450); RED BLOOD COUNT 2.64 10^6/uL (4.00-5.40); WHITE BLOOD COUNT 6.4 10^3/uL (4.0-10.0)
[2020-12-25] MEDS: CEFTAROLINE FOSAMIL 600 MG in D5W MINI-BAG PLUS 50 ML IV SCH ×2 (06:16→17:12)
[2020-12-25] MEDS: ACETAMINOPHEN TAB 650MG DOSE (2X325MG) PO PRN ×2 (06:23→17:12)
[2020-12-25 06:37] LABS: CALCIUM LEVEL 8.2 MG/DL (8.5-10.1); CREATININE FOR GFR 1.04 MG/DL (0.55-1.30); GLOMERULAR FILTRATION RATE 58.6 (>51); POTASSIUM SERUM 4.4 MEQ/L (3.5-5.1)
[2020-12-25 07:38] VITALS: BP 126/73
[2020-12-25] MEDS: LACTOBACILLUS ACIDOPHILUS CAP (BACID) PO SCH ×3 (08:30→17:12)
[2020-12-25] MEDS: NEBIVOLOL 5 MG TAB (BYSTOLIC) PO SCH (08:30)
[2020-12-25] MEDS: diltiaZEM **CD** 180 MG CAP PO SCH (08:31)
[2020-12-25] MEDS: HumaLOG INSULIN (NovoLOG) PER UNIT SC SCH ×4 (08:32→20:46)
[2020-12-25] MEDS: FUROSEMIDE 20 MG TAB PO SCH (09:14)
--- NOTE | 2020-12-25 11:46 | IPN ---
PROGRESS NOTE DATE: 12/25/2020 SUBJECTIVE: Chantale feels "about the same." I appreciate Dr. Hunter's consultation. We discussed the case yesterday for treatments essentially for a COPD exacerbation at this point with no plans for bronchoscopy. PHYSICAL EXAMINATION: VITAL SIGNS: Blood pressure 126/73, O2 saturation 98% on 2 liters. GENERAL APPEARANCE: She is resting comfortably. HEENT: Unremarkable. LUNGS: A few wheezes on the right side, left side has poor air movement, wheezes, crackles and rhonchi. HEART: Regular rate and rhythm. ABDOMEN: Soft, nontender. No peripheral edema. LABORATORY DATA: White count is 6.4, hemoglobin is 9.1, platelets are 173,000. Sodium 137, potassium is 4.4, BUN 22, creatinine 1.0. Glucose 162. Blood sugars have been generally below 150. Sputum just grew out some yeast. IMPRESSION: 1. COPD exacerbation. Continue bronchodilator and intravenous steroid and we will continue her Ceftaroline for now. I do not think the yeast on culture is pathogenic. She has been on some antibiotics recently and is probably mouth alexi. She is not symptomatic from this. 2. History of pulmonary embolism, continue her Xarelto. 3. Atrial fibrillation, rate is controlled. Continue anticoagulant as well as her Bystolic. 4. Hypertension. Continue her current regimen. I have been holding off on this to be sure we were not going to take her for endoscopy. 5. I anticipate she will need several more days in the hospital before going home, anticipate discharge probably at the end of the week.
[2020-12-25 12:00] VITALS: BP 115/59
--- NOTE | 2020-12-25 12:38 | ECHO ---
DATE OF PROCEDURE: 12/24/2020 Age: 55 Gender: Female Height: 150 cm Weight: 79 kg REFERRING PHYSICIAN: Abundio Sanchez MD INDICATION: Dyspnea. MEASUREMENTS: IVS 0.9 cm LV 4.7 cm LVPW 1.2 cm LA 3.5 cm Aorta 3.2 cm RV 3.0 cm IVC 1.6 cm DOPPLER MEASUREMENT Mitral E wave velocity 103 Mitral A 81 E prime septal 9.5 E prime lateral 8.9 FINDINGS: This study is of fair technical quality, especially apical windows were very limited. Underlying sinus rhythm. Left ventricle is of normal size and appears to have normal systolic function, I estimate EF around 60% to 65%. Mild LVH is noted. Right ventricle is normal size. It appears to be mildly hypertrophied, but contractility is preserved. Both atria appear grossly normal. Aortic valve is tricuspid. It appears to have normal mobility. Same applies for the mitral valve. Tricuspid valve was particularly poorly seen and I cannot comment on its structure. Pulmonic valve appears normal. No pericardial effusion is noted, but a small amount of pericardial fat pad is noticeable. Inferior vena cava is normal size. The aortic root and aortic arch appear normal. Abdominal aorta was not visualized. Doppler interrogation reveals mild aortic insufficiency and no aortic stenosis. There is functionally competent mitral valve. Tricuspid valve was not well seen and consequently, I cannot comment on its functionality. Pulmonic valve is also functionally competent. Mitral inflow pattern and tissue Doppler imaging of the mitral annulus revealed normal diastolic function. CONCLUSIONS: 1. Study is of fair technical quality, underlying sinus rhythm. 2. Normal LV size with mild LVH and preserved LV systolic and diastolic function. 3. No significant aortic, mitral, and pulmonic valvular disease. 4. Tricuspid valve was not well seen. 5. Likely normal central venous pressure, but unable to estimate pulmonary artery pressure. MTDD
--- NOTE | 2020-12-25 12:45 | IPN ---
PROGRESS NOTE DATE: 12/25/2020 SUBJECTIVE: Gail was seen and examined this morning by the Pulmonology Service while sitting upright in a bedside chair. She reports doing decently well from a respiratory standpoint with transfers. She denies any significant overnight events, but does still feel pretty congested. She denies any pleuritic chest pain or significant dyspnea, even with ambulation. She denies any current or overnight fever, chills, or night sweats. She is eating and drinking without any issue. She did report getting an enema yesterday which did help lead to a bowel movement. OBJECTIVE: GENERAL: A very pleasant female seated in bedside chair at time of examination, receiving supplemental oxygen, in no acute distress. She is alert and oriented x3. HEENT: Normocephalic, atraumatic, non-injected, anicteric sclera. No significant conjunctival pallor. Pupils are equal, round and reactive to light and accommodation. Mucous membranes are moist. There is no pharyngeal erythema or exudate appreciated. She is wearing supplemental oxygen in the form of 2 liters nasal cannula. NECK: Supple, quite wide. No lymphadenopathy appreciated. CARDIOVASCULAR: Regular rate, regular rhythm. There is no significant murmur or rub appreciated upon auscultation but this was compromised by her significant adventitious breath sounds in the background. 2+ radial pulses palpated bilaterally. RESPIRATORY: The patient is breathing on 2 liters supplemental oxygen nasal cannula. There is pretty diffuse rhonchi bilaterally, a little bit coarser on the left side. There is also very little in the way of regular breath sounds on the left side where there is some vesicular sounds on the right. There is bilateral crackles as well and there is some wheezing appreciated more in the upper lobes bilaterally as well. No accessory muscle use. Symmetric chest expansion. GASTROINTESTINAL: Soft, obese, nontender and nondistended. No rigidity appreciated. Normoactive bowel sounds throughout. EXTREMITIES: 2+ radial pulses bilaterally. Bilateral lower extremities are free of edema. SKIN: There is a long, approximately 10 to 12 cm vertical incision over her thoracic spine that appears well-healed. Otherwise, her skin is intact, warm and dry. NEUROLOGIC: Patient is awake, alert and oriented x3. No focal deficits appreciated. Non-dysarthric speech. LABORATORY DATA: WBC is 6.4, hemoglobin 9.1, hematocrit is 27.9, platelet count of 173,000. A serum sodium is 137, potassium is 4.4, chloride 102, bicarbonate 32, BUN 22, creatinine 1.04 with a calculated GFR of 58.6%. Glucose is 162, calcium is 8.2 and procalcitonin remains pending. There was no ABG obtained today. As mentioned in consultation note, sputum culture on December 23 was positive for a moderate amount of gram positive cocci in pairs, chains and clusters. IMAGING: No new imaging has been obtained in the last two days. ASSESSMENT AND PLAN: 1. COPD exacerbation most likely secondary to recent COVID pneumonia last month. Suspicion for pneumonia is low at this time since she remains afebrile, has no constitutional symptoms, and has no white count. She reports a slight improvement since starting the steroids. Patient xcontinues to have some wheezing and rhonchi and difficulty expectorating mucous. Suspect will take some time with IV steroids until clinical improvement. Patient is on saline nebs and Duoneb with acapella device for pulmonary toilet but will add percussion vest to aid in mucous clearance. Also, at this time while the procalcitonin remains pending, we will continue with her Ceftaroline antibiotic. We would recommend discontinuing the antibiotic should procalcitonin result be unremarkable. She is on her chronic home supplemental oxygen dosing of 2 liters nasal cannula; we'll continue this with the oxygen titration orders as is. 2. History of left lung adenocarcinoma diagnosed in January 2018, status post radiation and currently on maintenance chemotherapy. Patient reports 57 total radiation treatments with resulting significant left lobe atelectasis from radiation pneumonitis. She reports having bone metastases in February 2019 and is currently receiving maintenance chemotherapy at the [facility] by Dr. Carter of Medical Oncology. Patient's CT chest appears similar to prior imaging in her left lung consolidation with only increase opacity in left apex which is likely due to mucous plugging and atelectasis. She has air bronchograms noted in the left upper lobe and no clearly seen mass or endobronchial lesion. There is less clinical suspicion of recurrent disease in the left lung at this time. 3. History of pulmonary embolism. She is currently receiving anticoagulation in the form of Xarelto. She received therapeutic Lovenox dosing yesterday after her home Eliquis was held in the interest of switching over to Lovenox. IAshley, conducted independent examination and history of the patient and agree with the plan as detailed above by the resident and discussed during rounds. EMELY
[2020-12-25 16:00] VITALS: BP 111/69
[2020-12-25] MEDS: RIVAROXABAN 10 MG TAB (XARELTO) PO SCH (17:12)
[2020-12-25 20:00] VITALS: BP 110/56
[2020-12-25] MEDS: PANTOPRAZOLE 40MG TAB (PROTONIX) PO SCH (20:44)
[2020-12-26] VITALS: BP 113/59
[2020-12-26] MEDS: methylPREDNISolone 40MG 1ML VIAL IV SCH ×3 (00:19→23:34)
[2020-12-26] MEDS: IPRATROPIUM 0.5MG/ALBUTEROL 2.5MG INH SOL UD 3ML (DUONEB) NEB SCH ×4 (02:13→20:30)
[2020-12-26] MEDS: SODIUM CHLORIDE 0.9% 3ML NEB SOLUTION FOR INHALATION INH SCH (02:13)
[2020-12-26 04:00] VITALS: BP 131/79
[2020-12-26] MEDS: ACETAMINOPHEN TAB 650MG DOSE (2X325MG) PO PRN ×2 (04:33→11:44)
[2020-12-26] MEDS: CEFTAROLINE FOSAMIL 600 MG in D5W MINI-BAG PLUS 50 ML IV SCH (05:12)
[2020-12-26 05:23] LABS: HEMATOCRIT 28.4 % (36.0-47.0); MEAN CORPUSCULAR HEMOGLOBIN 33.5 pg (27.0-33.0); MEAN CORPUSCULAR HGB CONC 31.7 g/dl (32.0-36.5); MEAN CORPUSCULAR VOLUME 105.6 fl (80.0-96.0); PLATELET COUNT, AUTOMATED 158 10^3/uL (150-450); RED BLOOD COUNT 2.69 10^6/uL (4.00-5.40); WHITE BLOOD COUNT 9.5 10^3/uL (4.0-10.0)
[2020-12-26 06:00] LABS: CALCIUM LEVEL 7.7 MG/DL (8.5-10.1); CREATININE FOR GFR 1.03 MG/DL (0.55-1.30); GLOMERULAR FILTRATION RATE 59.2 (>51); POTASSIUM SERUM 4.4 MEQ/L (3.5-5.1)
[2020-12-26 08:00] VITALS: BP 131/67
[2020-12-26] MEDS: LACTOBACILLUS ACIDOPHILUS CAP (BACID) PO SCH ×3 (09:14→16:49)
[2020-12-26] MEDS: diltiaZEM **CD** 180 MG CAP PO SCH (09:15)
[2020-12-26] MEDS: FUROSEMIDE 20 MG TAB PO SCH (09:15)
[2020-12-26] MEDS: NEBIVOLOL 5 MG TAB (BYSTOLIC) PO SCH (09:15)
[2020-12-26] MEDS: guaiFENesin SYRUP 200 MG/10 ML UDC PO PRN (09:15)
[2020-12-26] MEDS: HumaLOG INSULIN (NovoLOG) PER UNIT SC SCH ×4 (09:16→20:51)
[2020-12-26] MEDS: FLEET ENEMA PR PRN (10:02)
[2020-12-26] MEDS ORDERED: methylPREDNISolone 125MG 2ML VIAL IV ONE (11:20)
[2020-12-26] MEDS: MAGNESIUM OXIDE 400MG TAB (MAG-OX) PO SCH ×2 (11:44→20:50)
[2020-12-26 11:54] VITALS: BP 134/75
[2020-12-26] MEDS ORDERED: FLEET ENEMA PR ONE (12:00)
[2020-12-26] MEDS ORDERED: methylPREDNISolone 40MG 1ML VIAL IV SCH ×3 (13:00)
[2020-12-26] MEDS: ACETYLCYSTEINE 10% 30 ML VIAL INH SCH ×2 (13:27→20:30)
--- NOTE | 2020-12-26 14:36 | IPN ---
PROGRESS NOTE DATE OF SERVICE: 12/26/2020 ATTENDING PHYSICIAN: Dr. Ashley Hunter M.D. SUBJECTIVE: Gail was seen and examined this morning by the pulmonology service while sitting upright on the side of her bed. She reports handling the chest physical therapy (PT) that we ordered yesterday with no significant issues. In terms of being able to expectorate mucus, she says the chest PT helped somewhat. She has been able to bring up some very small, thick, yellow-colored mucus, but still feels as though there is more to bring up at this time. She denies any blood in the sputum. She continues to feel congested, both says it's unchanged from yesterday. She reports receiving an enema this morning. It has been almost 48 hours since her last bowel movement. She admits to some intermittent abdominal discomfort related to the constipation, and seems anxious for this to resolve. Also to note, her primary physician has started magnesium oxide, as she is on this as an outpatient. She is eating and drinking without any issues and denies any diminished appetite, nausea, or vomiting. In terms of her breathing, she does not feel as though she is working harder to breathe or feeling as though she is trying to catch her breath. She has remained on the 2 liters supplemental oxygen overnight, and no adverse events were reported to us by nursing. Upon review of medications, the ceftaroline antibiotic she was on yesterday has subsequently been discontinued by the primary service, most likely because procalcitonin was unremarkable. As discussed in our pulmonary service note yesterday, we agree with this discontinuation in light of the procalcitonin. Also, there appears to be some recent changes to her Solu-Medrol dosing. Her last 40 mg intravenous (IV) Solu-Medrol dose was just after midnight in the bobbin trucker hours of today (December 26). She is now well past the 8 hours when the next is due, and it seems as though a couple different dosages of the Solu-Medrol have been ordered but were never given and subsequently discontinued. She is now back with scheduled 40 mg IV Solu-Medrol every 8 hours. She is not due on this current order for the next Solu-Medrol dose until 1 p.m. today. OBJECTIVE: GENERAL: female, seating upright at bedside, wearing supplemental oxygen. No acute distress. Alert and oriented times three. Appears slightly older than stated age. HEENT: Normocephalic, atraumatic. Non-injected, anicteric sclerae. No significant conjunctival pallor is present. She is wearing eyeglasses. Pupils are equal, round, and reactive to light and accommodation. She is wearing supplemental oxygen in the form of 2 liters nasal cannula. Mucous membranes are moist, and there is no appreciated pharyngeal erythema or exudate. NECK: Supple, wide. No lymphadenopathy is appreciated. CARDIOVASCULAR: Regular rate, regular rhythm. No significant murmur or rub was appreciated upon exam. Normal S1, S2. Radial pulse 2+ bilaterally. RESPIRATORY: She continues to be on supplemental oxygen in the form of 2 liters nasal cannula. The wheezing that was relatively prominent on yesterday's exam seems to be somewhat reduced today. The wheezing is still present, but, again, less intense of auscultation today. There is still diffuse rhonchi bilaterally, and the rhonchi appears to be more intense over her left lung. There continues to be very little in the way of regular vesicular-sounding breath sounds on the left side posteriorly, while there are some vesicular sounds appreciated amidst the adventitious sounds on the right side. There continue to be some slight crackles as well. Symmetric chest expansion. No accessory muscle use. GASTROINTESTINAL: Soft, obese, nondistended, and nontender. No rigidity is appreciated. Normoactive bowel sounds throughout. EXTREMITIES: Bilateral lower extremities are free of pitting edema. The skin of bilateral lower extremities appears to be quite dry and a little bit scaly. SKIN: As discussed above, skin overlying distal bilateral lower extremities is dry and scaly. There is a roughly 10 cm vertical incision over thoracic spine that is well healed. NEUROLOGIC: Awake, alert, and oriented times three. Non-dysarthric speech. No focal deficits appreciated. PSYCHIATRIC: Patient appears somewhat more reserved today than yesterday and a bit down. Affect appears appropriate. LABORATORIES: WBC 9.5, hemoglobin 9.0, MCV 105.6, hematocrit 33.5, platelet count 158,000. Sodium 138, chloride 101, potassium 4.4, bicarbonate 33, BUN 22, creatinine 1.03 with a calculated GFR 59%, serum glucose 154. Twenty-four input through midnight last night +1740, with 24-hour output through midnight of negative 2050 mL (all urine); net 24-hour is negative 310 mL. Sputum culture from December 23 showed growth of yeast-like organism. This has been discussed in our consultation note. IMAGING: No new imaging again today. ASSESSMENT AND PLAN: 1. Chronic obstructive pulmonary disease (COPD) exacerbation, likely secondary to recent COVID pneumonia infection in November 2020. The suspicion for pneumonia from our perspective was low, as patient clinically did not appear to have an infectious process - - she remained afebrile with no constitutional symptoms, and white count remained within normal limits. We agree with discontinuation of the ceftaroline antibiotic after an unremarkable procalcitonin level of 0.08. As discussed in the subjective section of this note, patient continues to be on intravenous (IV) Solu-Medrol, but the dosing orders for that had been changed somewhat. Ultimately, she is back on the 40 mg IV Solu-Medrol dosing every 8 hours, as she had been, but due to these changes, her last dose of steroid was just after midnight on the overnight. This means that she is now nearly 12+ hours since her last steroid dose. IV 40 mg is a relatively low amount, and due to this long gap in administration, we have ordered a one-time 125 mg IV Solu-Medrol dose to be given now. We also discussed with the patient's nurse continuing with the scheduled 40 mg every 8 Solu-Medrol dosing, but to administer the scheduled 1 p.m. dose today 1-1.5 hours later due to our one-time 125 mg dose. As discussed in the exam section, she has less wheezing today than yesterday, but she still feels quite congested and has only been able to bring up some very small concentrated, thick, yellow mucus. In addition to continuing with her scheduled and as-needed DuoNeb treatments, chest PT/vest, and Acapella device, we will stop the saline inhaler and switch to Mucomyst, as she has had very little response to the saline. As discussed in prior documentation, she is on 2 liters supplemental oxygen nasal cannula chronically at home. On review of her overnight saturation, she was saturating very well, between 98%-100% during the overnight period. With her chronic obstructive pulmonary disease (COPD), there may be some consideration given to perhaps seeing how she does with 1 liter nasal cannula supplemental oxygen. As mentioned, she was treated with remdesivir as well as antibiotics and presumed dexamethasone at [facility] last month for COVID pneumonia. She was readmitted to [facility] a few days ago for possible pneumonia and given azithromycin and ceftriaxone but had little improvement in her symptoms and thus was transferred here. As discussed above, we feel that this is a COPD exacerbation complicated by mucous plugging and significant atelectasis of the entire left lobe with chronic consolidation. Of note, patient follows with Dr. Garcia as an outpatient at the [facility] office here in [place]. 2. History of left lung adenocarcinoma diagnosed in January 2018, status post 57 radiation treatments as well as chemotherapy. She is now currently receiving maintenance therapy in the form of pemetrexed and bevasizumab, as she is under the care of Dr. Marlin Carter at the [facility] for cancer care. In addition, she was diagnosed with bone metastases in February 2019. 3. History of pulmonary embolism and atrial fibrillation, on anticoagulation currently. She is receiving daily Xarelto dosing for anticoagulation at this time. She did receive 1 day therapeutic Lovenox dosing on December 24, and her home Eliquis was initially held in favor of the Lovenox. 4. Deep venous thrombosis (DVT) prophylaxis. As discussed above, she is on anticoagulation therapeutically in the form of Xarelto for her atrial fibrillation and history of pulmonary embolism. At this time, the pulmonary service will be signing off. Thank you very much for the opportunity to participate in Gail's care. Should any further questions or concerns arise from a pulmonary perspective, please feel free to reach out. I, Ashley Hunter, have conducted an independent examination and history of the patient and agree with the plan as detailed by the resident and discussed during rounds. EMELY
[2020-12-26 16:00] VITALS: BP 125/60
[2020-12-26] MEDS: RIVAROXABAN 10 MG TAB (XARELTO) PO SCH (16:49)
--- NOTE | 2020-12-26 18:06 | IPNPDOC ---
Date Seen The patient was seen on 12/26/20. Progress Note SUBJECTIVE: Mucomyst added to regimen today, states to still feel congested, only slightly better. Discussed case with Dr. Hunter. Patient denies chest pain, fevers, chills. OBJECTIVE: PHYSICAL EXAMINATION: VITAL SIGNS: Please see below GENERAL APPEARANCE: Sitting up at bedside, NAD, AAOx 3 HEENT: AT/NC LUNGS: Wheezing in b/l lung patterson, occasional rhonchi . No rales HEART: RRR, S1S2+, no M/R/G ABDOMEN: Soft, nontender. No peripheral edema. INTEGUMENTARY: intact, no lesions, erythema MSK: Normal ROM of all joints, no edema NEURO: CN 2-12 intact, no sensory or motor deficits, no focal deficits LABORATORY DATA: Please see below MICROBIOLOGY: Sputum Cx: few yeast ASSESSMENT: 55 y/o F with PMH of COVID-19 infection/PNA 11/2020, lung adenocarcinoma, hx of PE, atrial fibrillation, HTN who was admitted for COPD exacerbation likely 2/2 to recent COVID PNA. PLAN: COPD exacerbation likely 2/2 to recent COVID-19 PNA -Remains on 2 L NC, home amount; however, very wheezy, occasional rhonchi -Stopped abx as procalcitonin low and sputum cx above essentially neg. -Pulmonary consulted and added mucomyst to steroids, nebulizer tx, chest physiotherapy, etc. Hx of PE -C/w AC, xarelto Atrial fibrillation, chornic -Rate controlled -C/w BB, xarelto Left lung adenocarcinoma with bone metastasis, diagnosed in 2017 -S/p 57 radiation treatments as well as chemotherapy. -She is now currently receiving maintenance therapy in the form of pemetrexed and bevasizumab -F/u with Dr. Marlin Carter at the [facility] for cancer care. HTN -Stable DVT px -Xarelto DISPOSITION: C/w care above, discharge when clinically improved to home. VS, I&O, 24H, Fishbone Vital Signs/I&O Vital Signs Date Time Temp Pulse Resp B/P (MAP) Pulse Ox O2 Delivery O2 Flow Rate FiO2 12/26/20 16:00 97.4 82 20 125/60 (81) 100 Nasal Cannula 2.0 I&O- Last 24 Hours up to 6 AM 12/26/20 06:00 Intake Total 1540 ml Output Total 1600 ml Balance -60 ml Laboratory Data 24H LABS Laboratory Tests 2 12/25/20 20:45: Bedside Glucose (Misc Panel) 224H 12/26/20 05:08: Nucleated Red Blood Cells % (auto) 2.2H, Anion Gap 4L, Glomerular Filtration Rate 59.2, Calcium Level 7.7L 12/26/20 10:40: Magnesium Level 1.7L 12/26/20 11:49: Bedside Glucose (Misc Panel) 123H 12/26/20 16:32: Bedside Glucose (Misc Panel) 124H CBC/BMP Laboratory Tests 12/26/20 05:08 Microbiology Microbiology 12/23/20 Gram Stain - Final, Complete 12/23/20 Sputum Culture - Final, Complete Yeast Like Organism Current Medications Current Medications Medications (Trade) Dose Ordered Sig/Rashida Route PRN Reason Start Time Stop Time Status Last Admin Dose Admin Acetaminophen (Tylenol Tab) 650 mg Q6HP PRN PO PAIN / FEVER 12/24/20 11:30 12/26/20 11:44 Acetylcysteine (Mucomyst 10 % (100mg/ml)) 400 mg RQ6H INH 12/26/20 14:00 12/26/20 13:27 Albuterol/ Ipratropium (Duoneb (Ipr 0.5mg/Alb 2.5mg)) 3 ml Q2HP PRN NEB SOB/WHEEZING 12/23/20 13:15 Albuterol/ Ipratropium (Duoneb (Ipr 0.5mg/Alb 2.5mg)) 3 ml RQ6H NEB 12/23/20 14:00 12/26/20 13:23 Ceftaroline Fosamil 600 mg/ Dextrose 50 ml @ 50 mls/hr Q12H IV 12/23/20 18:00 12/26/20 08:10 DC 12/26/20 05:12 Dextrose (Dextrose 50%) 25 ml ASDIRECTED PRN IV SEE LABEL COMMENTS 12/23/20 14:45 Diltiazem HCl (Cardizem Cd) 180 mg DAILY PO 12/24/20 09:00 12/26/20 09:15 Enoxaparin Sodium (Lovenox) 80 mg Q12H SC 12/23/20 17:00 12/24/20 13:00 DC 12/24/20 05:12 Furosemide (Lasix) 20 mg MoTuWeThFr PO 12/25/20 09:00 12/26/20 09:15 Glucagon (Glucagon) 1 mg ASDIRECTED PRN SC SEE LABEL COMMENTS 12/23/20 14:45 Glucose (Glucose) 16 GM ASDIRECTED PRN PO SEE LABEL COMMENTS 12/23/20 14:45 Guaifenesin (Robitussin) 5 ml BIDP PRN PO COUGH 12/23/20 19:00 12/26/20 09:15 Home Med (Med Rec Complete!) ASDIRECTED XX 12/23/20 14:00 12/23/20 14:03 DC Insulin Human Lispro (HumaLOG INSULIN) SEE PROTOCOL TABLE AC SC 12/23/20 17:30 12/26/20 16:50 Insulin Human Lispro (HumaLOG INSULIN) SEE PROTOCOL TABLE QHS SC 12/23/20 21:00 Lactobacillus Acidophilus (Bacid) 2 ea WM PO 12/23/20 18:00 12/26/20 16:49 Magnesium Oxide (Mag-Ox) 400 mg BID PO 12/26/20 09:00 12/26/20 11:44 Methylprednisolone (SOLU medrol) 40 mg DAILY IV 12/23/20 09:00 12/24/20 09:52 DC 12/24/20 08:20 Methylprednisolone (SOLU medrol) 40 mg Q12H IV 12/26/20 13:00 12/26/20 10:28 DC Methylprednisolone (SOLU medrol) 40 mg Q8H IV 12/24/20 17:00 12/26/20 08:10 DC 12/26/20 00:19 Methylprednisolone (SOLU medrol) 40 mg Q8H IV 12/26/20 13:00 12/26/20 11:41 DC Methylprednisolone (SOLU medrol) 40 mg Q8H IV 12/26/20 15:00 12/26/20 15:55 Methylprednisolone (SOLU medrol) 60 mg Q12H IV 12/26/20 13:00 12/26/20 10:19 DC Nebivolol (Bystolic) 5 mg DAILY PO 12/24/20 09:00 12/26/20 09:15 Pantoprazole Sodium (Protonix) 40 mg QHS PO 12/23/20 21:00 12/25/20 20:44 Rivaroxaban (Xarelto) 10 mg DAILY@1700 PO 12/24/20 17:00 12/26/20 16:49 Sodium Biphosphate/ Sodium Phosphate (Fleet Enema) 1 ea DAILYPRN PRN [place] CONSTIPATION 12/24/20 11:30 12/26/20 10:02 Sodium Chloride (Nacl 0.9% Solution For Inhalation) 3 ml RQ6H INH 12/24/20 14:00 12/26/20 11:17 DC 12/26/20 02:13 Allergies Coded Allergies: SEAFOOD (Verified Allergy, Severe, 02/03/18) pt. carries an epi pen Penicillins (Verified Allergy, Unknown, 01/27/19) Risa Crow MD Dec 26, 2020 18:06
[2020-12-26 20:00] VITALS: BP 123/61
[2020-12-26] MEDS: PANTOPRAZOLE 40MG TAB (PROTONIX) PO SCH (20:50)
[2020-12-27] VITALS: BP 134/82
[2020-12-27] MEDS: IPRATROPIUM 0.5MG/ALBUTEROL 2.5MG INH SOL UD 3ML (DUONEB) NEB SCH ×4 (01:28→20:04)
[2020-12-27] MEDS: ACETYLCYSTEINE 10% 30 ML VIAL INH SCH ×4 (01:28→20:04)
[2020-12-27] MEDS: FLEET ENEMA PR PRN (02:52)
[2020-12-27 04:00] VITALS: BP 102/61
[2020-12-27 06:06] LABS: HEMATOCRIT 27.5 % (36.0-47.0); HEMOGLOBIN 8.9 g/dl (12.0-15.5); MEAN CORPUSCULAR HEMOGLOBIN 34.1 pg (27.0-33.0); MEAN CORPUSCULAR HGB CONC 32.4 g/dl (32.0-36.5); MEAN CORPUSCULAR VOLUME 105.4 fl (80.0-96.0); PLATELET COUNT, AUTOMATED 139 10^3/uL (150-450); RED BLOOD COUNT 2.61 10^6/uL (4.00-5.40)
[2020-12-27] MEDS: methylPREDNISolone 40MG 1ML VIAL IV SCH ×3 (06:16→23:34)
[2020-12-27 06:33] LABS: ALBUMIN 2.6 GM/DL (3.2-5.2); BILIRUBIN,TOTAL 0.2 MG/DL (0.2-1.0); CREATININE FOR GFR 1.05 MG/DL (0.55-1.30); GLOMERULAR FILTRATION RATE 57.9 (>51); POTASSIUM SERUM 4.3 MEQ/L (3.5-5.1); TOTAL PROTEIN 5.5 GM/DL (6.4-8.2)
[2020-12-27 08:00] VITALS: BP 125/71
[2020-12-27] MEDS: HumaLOG INSULIN (NovoLOG) PER UNIT SC SCH ×4 (08:20→20:46)
[2020-12-27] MEDS: MAGNESIUM OXIDE 400MG TAB (MAG-OX) PO SCH ×2 (08:21→20:48)
[2020-12-27] MEDS: LACTOBACILLUS ACIDOPHILUS CAP (BACID) PO SCH ×3 (08:21→17:32)
[2020-12-27] MEDS: FUROSEMIDE 20 MG TAB PO SCH (08:21)
[2020-12-27] MEDS: NEBIVOLOL 5 MG TAB (BYSTOLIC) PO SCH (08:23)
[2020-12-27] MEDS: diltiaZEM **CD** 180 MG CAP PO SCH (08:24)
[2020-12-27 12:00] VITALS: BP 129/75
[2020-12-27] MEDS: RIVAROXABAN 10 MG TAB (XARELTO) PO SCH (17:32)
--- NOTE | 2020-12-27 17:42 | IPNPDOC ---
Date Seen The patient was seen on 12/27/20. Progress Note SUBJECTIVE: Still very wheezy, rhonchorous. Patient denies chest pain, fevers, chills. OBJECTIVE: PHYSICAL EXAMINATION: VITAL SIGNS: Please see below GENERAL APPEARANCE: Sitting up at bedside chair, NAD, AAOx 3 HEENT: AT/NC LUNGS: Wheezing in b/l lung [place], occasional rhonchi as yesterday. No rales HEART: RRR, S1S2+, no M/R/G ABDOMEN: Soft, nontender. No peripheral edema. INTEGUMENTARY: intact, no lesions, erythema MSK: Normal ROM of all joints, no edema NEURO: CN 2-12 intact, no sensory or motor deficits, no focal deficits LABORATORY DATA: Please see below MICROBIOLOGY: Sputum Cx: few yeast ASSESSMENT: 55 y/o F with PMH of COVID-19 infection/PNA 11/2020, lung adenocar cinoma, hx of PE, atrial fibrillation, HTN who was admitted for COPD exacerbation likely 2/2 to recent COVID PNA. PLAN: COPD exacerbation likely 2/2 to recent COVID-19 PNA -Remains on 2 L NC, home amount; however, still remains very wheezy, rhonchi -Pulmonary consulted and has evaluated -C/w mucomyst, steroids IV, nebulizer tx, chest physiotherapy, etc. -Once we can wean down steroids closer to 60 mg PO daily, can discuss discharge. Macrocytic anemia -Baseline Hgb 9.4-11.7 -H/H this AM 8.9/ 27.5, steadily declining -No s/s of bleeding but on xarelto, no IVFs, no hx of needing transfusions for anemia -F/u occult blood, anemia w/u, daily CBC Acute thrombocytopenia -Not on heparin products, on xarelto -PLT 130's -F/u daily CBC Hx of PE -C/w AC, xarelto Atrial fibrillation, chornic -Rate controlled -C/w BB, xarelto Left lung adenocarcinoma with bone metastasis, diagnosed in 2017 -S/p 57 radiation treatments as well as chemotherapy. -She is now currently receiving maintenance therapy in the form of pemetrexed and bevasizumab -F/u with Dr. Marlin Carter at the [facility] for cancer care. HTN -Stable DVT px -Xarelto DISPOSITION: C/w care above, downgrading to med/surg. Discharge when clinically improved to home. VS, I&O, 24H, Fishbone Vital Signs/I&O Vital Signs Date Time Temp Pulse Resp B/P (MAP) Pulse Ox O2 Delivery O2 Flow Rate FiO2 12/27/20 12:00 97.5 72 19 129/75 (93) 100 Nasal Cannula 2.0 I&O- Last 24 Hours up to 6 AM 12/27/20 06:00 Intake Total 1550 ml Output Total 1575 ml Balance -25 ml Laboratory Data 24H LABS Laboratory Tests 2 12/26/20 20:48: Bedside Glucose (Misc Panel) 173H 12/27/20 05:49: Nucleated Red Blood Cells % (auto) 1.2H, Anion Gap 4L, Glomerular Filtration Rate 57.9, Calcium Level 8.0L, Total Bilirubin 0.2, Aspartate Amino Transf (AST/SGOT) 18, Alanine Aminotransferase (ALT/SGPT) 52, Alkaline Phosphatase 74, Total Protein 5.5L, Albumin 2.6L, Albumin/Globulin Ratio 0.9L 12/27/20 11:50: Bedside Glucose (Misc Panel) 130H 12/27/20 16:55: Bedside Glucose (Misc Panel) 150H CBC/BMP Laboratory Tests 12/27/20 05:49 Microbiology Microbiology 12/23/20 Gram Stain - Final, Complete 12/23/20 Sputum Culture - Final, Complete Yeast Like Organism Current Medications Current Medications Medications (Trade) Dose Ordered Sig/Rashida Route PRN Reason Start Time Stop Time Status Last Admin Dose Admin Acetaminophen (Tylenol Tab) 650 mg Q6HP PRN PO PAIN / FEVER 12/24/20 11:30 12/26/20 11:44 Acetylcysteine (Mucomyst 10 % (100mg/ml)) 400 mg RQ6H INH 12/26/20 14:00 12/27/20 14:08 Albuterol/ Ipratropium (Duoneb (Ipr 0.5mg/Alb 2.5mg)) 3 ml Q2HP PRN NEB SOB/WHEEZING 12/23/20 13:15 Albuterol/ Ipratropium (Duoneb (Ipr 0.5mg/Alb 2.5mg)) 3 ml RQ6H NEB 12/23/20 14:00 12/27/20 14:08 Ceftaroline Fosamil 600 mg/ Dextrose 50 ml @ 50 mls/hr Q12H IV 12/23/20 18:00 12/26/20 08:10 DC 12/26/20 05:12 Dextrose (Dextrose 50%) 25 ml ASDIRECTED PRN IV SEE LABEL COMMENTS 12/23/20 14:45 Diltiazem HCl (Cardizem Cd) 180 mg DAILY PO 12/24/20 09:00 12/27/20 08:24 Enoxaparin Sodium (Lovenox) 80 mg Q12H SC 12/23/20 17:00 12/24/20 13:00 DC 12/24/20 05:12 Furosemide (Lasix) 20 mg MoTuWeThFr PO 12/25/20 09:00 12/27/20 08:21 Glucagon (Glucagon) 1 mg ASDIRECTED PRN SC SEE LABEL COMMENTS 12/23/20 14:45 Glucose (Glucose) 16 GM ASDIRECTED PRN PO SEE LABEL COMMENTS 12/23/20 14:45 Guaifenesin (Robitussin) 5 ml BIDP PRN PO COUGH 12/23/20 19:00 12/26/20 09:15 Home Med (Med Rec Complete!) ASDIRECTED XX 12/23/20 14:00 12/23/20 14:03 DC Insulin Human Lispro (HumaLOG INSULIN) SEE PROTOCOL TABLE AC SC 12/23/20 17:30 12/27/20 17:33 Insulin Human Lispro (HumaLOG INSULIN) SEE PROTOCOL TABLE QHS SC 12/23/20 21:00 Lactobacillus Acidophilus (Bacid) 2 ea WM PO 12/23/20 18:00 12/27/20 17:32 Magnesium Oxide (Mag-Ox) 400 mg BID PO 12/26/20 09:00 12/27/20 08:21 Methylprednisolone (SOLU medrol) 40 mg DAILY IV 12/23/20 09:00 12/24/20 09:52 DC 12/24/20 08:20 Methylprednisolone (SOLU medrol) 40 mg Q12H IV 12/26/20 13:00 12/26/20 10:28 DC Methylprednisolone (SOLU medrol) 40 mg Q8H IV 12/24/20 17:00 12/26/20 08:10 DC 12/26/20 00:19 Methylprednisolone (SOLU medrol) 40 mg Q8H IV 12/26/20 13:00 12/26/20 11:41 DC Methylprednisolone (SOLU medrol) 40 mg Q8H IV 12/26/20 15:00 12/27/20 15:15 Methylprednisolone (SOLU medrol) 60 mg Q12H IV 12/26/20 13:00 12/26/20 10:19 DC Nebivolol (Bystolic) 5 mg DAILY PO 12/24/20 09:00 12/27/20 08:23 Pantoprazole Sodium (Protonix) 40 mg QHS PO 12/23/20 21:00 12/26/20 20:50 Rivaroxaban (Xarelto) 10 mg DAILY@1700 PO 12/24/20 17:00 12/27/20 17:32 Sodium Biphosphate/ Sodium Phosphate (Fleet Enema) 1 ea DAILYPRN PRN [place] CONSTIPATION 12/24/20 11:30 12/27/20 02:52 Sodium Chloride (Nacl 0.9% Solution For Inhalation) 3 ml RQ6H INH 12/24/20 14:00 12/26/20 11:17 DC 12/26/20 02:13 Allergies Coded Allergies: SEAFOOD (Verified Allergy, Severe, 02/03/18) pt. carries an epi pen Penicillins (Verified Allergy, Unknown, 01/27/19) Risa Crow MD Dec 27, 2020 17:42
[2020-12-27 19:16] LABS: PERCENT SATURATION 25.7 % (13.2-45.0)
[2020-12-27 19:21] LABS: FOLATE 22.5 NG/ML (>5.4)
[2020-12-27] MEDS: ADVAIR HFA 230/21MCG INHALER INH SCH (20:00)
[2020-12-27] MEDS: ACETAMINOPHEN TAB 650MG DOSE (2X325MG) PO PRN (20:49)
[2020-12-27] MEDS: PANTOPRAZOLE 40MG TAB (PROTONIX) PO SCH (20:49)
[2020-12-27 22:00] VITALS: BP 123/70
[2020-12-28] MEDS: ACETYLCYSTEINE 10% 30 ML VIAL INH SCH ×5 (01:51→19:33)
[2020-12-28] MEDS: IPRATROPIUM 0.5MG/ALBUTEROL 2.5MG INH SOL UD 3ML (DUONEB) NEB SCH ×5 (01:51→19:33)
[2020-12-28 06:00] VITALS: BP 122/69
[2020-12-28] MEDS: methylPREDNISolone 40MG 1ML VIAL IV SCH ×2 (06:31→21:44)
[2020-12-28 06:56] LABS: HEMATOCRIT 28.8 % (36.0-47.0); HEMOGLOBIN 9.3 g/dl (12.0-15.5); MEAN CORPUSCULAR HEMOGLOBIN 34.1 pg (27.0-33.0); MEAN CORPUSCULAR HGB CONC 32.3 g/dl (32.0-36.5); MEAN CORPUSCULAR VOLUME 105.5 fl (80.0-96.0); PLATELET COUNT, AUTOMATED 143 10^3/uL (150-450); RED BLOOD COUNT 2.73 10^6/uL (4.00-5.40); WHITE BLOOD COUNT 12.4 10^3/uL (4.0-10.0)
[2020-12-28 07:29] LABS: ALBUMIN 2.7 GM/DL (3.2-5.2); ALT/SGPT 57 U/L (12-78); BILIRUBIN,TOTAL 0.2 MG/DL (0.2-1.0); BLOOD UREA NITROGEN 25 MG/DL (7-18); CALCIUM LEVEL 7.8 MG/DL (8.5-10.1); CARBON DIOXIDE LEVEL 31 MEQ/L (21-32); CHLORIDE LEVEL 103 MEQ/L (98-107); CREATININE FOR GFR 0.96 MG/DL (0.55-1.30); GLOMERULAR FILTRATION RATE > 60.0 (>51); GLUCOSE, FASTING 156 MG/DL (70-100); POTASSIUM SERUM 4.2 MEQ/L (3.5-5.1); SODIUM LEVEL 138 MEQ/L (136-145); TOTAL PROTEIN 5.7 GM/DL (6.4-8.2)
[2020-12-28] MEDS: NEBIVOLOL 5 MG TAB (BYSTOLIC) PO SCH (07:54)
[2020-12-28] MEDS: HumaLOG INSULIN (NovoLOG) PER UNIT SC SCH ×4 (07:54→21:35)
[2020-12-28] MEDS: LACTOBACILLUS ACIDOPHILUS CAP (BACID) PO SCH ×3 (07:55→17:35)
[2020-12-28] MEDS: MAGNESIUM OXIDE 400MG TAB (MAG-OX) PO SCH ×2 (07:55→21:45)
[2020-12-28] MEDS: FUROSEMIDE 20 MG TAB PO SCH (07:55)
[2020-12-28] MEDS: diltiaZEM **CD** 180 MG CAP PO SCH (07:56)
[2020-12-28] MEDS: ADVAIR HFA 230/21MCG INHALER INH SCH ×2 (08:03→19:34)
[2020-12-28] MEDS: TIOTROPIUM INHALER/CAPSULE (SPIRIVA) INH SCH (08:03)
[2020-12-28 14:41] VITALS: BP 117/67
--- NOTE | 2020-12-28 16:47 | IPNPDOC ---
Date Seen The patient was seen on 12/28/20. Progress Note SUBJECTIVE: Improved aeration of right lung, persistent wheezing and rhonchi scattered on left lung. She feels chest physiotherapy vest is helping. Did well with PT. Patient denies chest pain, fevers, chills. OBJECTIVE: PHYSICAL EXAMINATION: VITAL SIGNS: Please see below GENERAL APPEARANCE: Sitting up at bedside chair, NAD, AAOx 3 HEENT: AT/NC LUNGS: improved aeration and decreased wheezing on right lung, persistent wheezing and rhonchi in left lung, occasional rhonchi as yesterday. No rales HEART: RRR, S1S2+, no M/R/G ABDOMEN: Soft, nontender. No peripheral edema. INTEGUMENTARY: intact, no lesions, erythema MSK: Normal ROM of all joints, no edema NEURO: CN 2-12 intact, no sensory or motor deficits, no focal deficits LABORATORY DATA: Please see below MICROBIOLOGY: Sputum Cx: few yeast ASSESSMENT: 55 y/o F with PMH of COVID-19 infection/PNA 11/2020, lung adenocarcinoma, hx of PE, atrial fibrillation, HTN who was admitted for COPD exacerbation likely 2/2 to recent COVID PNA. PLAN: COPD exacerbation likely 2/2 to recent COVID-19 PNA -Remains on 2 L NC, home amount; improved wheezing, rhonchi in right lung -C/w mucomyst, steroids IV decreased today, nebulizer tx, chest physiotherapy, etc. -Discussed with Dr. Hunter today (pulmonary) who agrees with continued deescalation and, once on PO prednisone, can d/c home Macrocytic anemia -Baseline Hgb 9.4-11.7 -H/H improved today -No s/s of bleeding but on xarelto, no IVFs, no hx of needing transfusions for anemia -Anemia w/u neg -F/u occult blood, daily CBC Acute thrombocytopenia -Not on heparin products, on xarelto -PLT 143 -F/u daily CBC Hx of PE -C/w AC, xarelto Atrial fibrillation, chornic -Rate controlled -C/w BB, xarelto Left lung adenocarcinoma with bone metastasis, diagnosed in 2017 -S/p 57 radiation treatments as well as chemotherapy. -She is now currently receiving maintenance therapy in the form of pemetrexed and bevasizumab -F/u with Dr. Marlin Carter at the [facility] for cancer care. HTN -Stable DVT px -Xarelto DISPOSITION: C/w care above. Discharge when clinically improved to home- goal is over the coming weekend. VS, I&O, 24H, Fishbone Vital Signs/I&O Vital Signs Date Time Temp Pulse Resp B/P (MAP) Pulse Ox O2 Delivery O2 Flow Rate FiO2 12/28/20 14:41 98.3 86 16 117/67 (84) 100 Nasal Cannula 2.0 I&O- Last 24 Hours up to 6 AM 12/28/20 05:59 Intake Total 1120 ml Output Total 600 ml Balance 520 ml Laboratory Data 24H LABS Laboratory Tests 2 12/27/20 16:55: Bedside Glucose (Misc Panel) 150H 12/27/20 18:19: Iron Level 71, Total Iron Binding Capacity 276, Transferrin % Saturation 25.7, Ferritin 426H, Vitamin B12 Level 1395H, Folate 22.5 12/27/20 20:39: Bedside Glucose (Misc Panel) 252H 12/28/20 05:49: Bedside Glucose (Misc Panel) 152H 12/28/20 06:20: Nucleated Red Blood Cells % (auto) 0.8H, Anion Gap 4L, Glomerular Filtration Rate > 60.0, Calcium Level 7.8L, Total Bilirubin 0.2, Aspartate Amino Transf (AST/SGOT) 18, Alanine Aminotransferase (ALT/SGPT) 57, Alkaline Phosphatase 71, Total Protein 5.7L, Albumin 2.7L, Albumin/Globulin Ratio 0.9L 12/28/20 11:41: Bedside Glucose (Misc Panel) 120H CBC/BMP Laboratory Tests 12/28/20 06:20 Microbiology Microbiology 12/23/20 Gram Stain - Final, Complete 12/23/20 Sputum Culture - Final, Complete Yeast Like Organism Current Medications Current Medications Medications (Trade) Dose Ordered Sig/Rashida Route PRN Reason Start Time Stop Time Status Last Admin Dose Admin Acetaminophen (Tylenol Tab) 650 mg Q6HP PRN PO PAIN / FEVER 12/24/20 11:30 12/27/20 20:49 Acetylcysteine (Mucomyst 10 % (100mg/ml)) 400 mg RQ6H INH 12/26/20 14:00 12/28/20 14:00 Albuterol/ Ipratropium (Duoneb (Ipr 0.5mg/Alb 2.5mg)) 3 ml Q2HP PRN NEB SOB/WHEEZING 12/23/20 13:15 Albuterol/ Ipratropium (Duoneb (Ipr 0.5mg/Alb 2.5mg)) 3 ml RQ6H NEB 12/23/20 14:00 12/28/20 14:00 Ceftaroline Fosamil 600 mg/ Dextrose 50 ml @ 50 mls/hr Q12H IV 12/23/20 18:00 12/26/20 08:10 DC 12/26/20 05:12 Dextrose (Dextrose 50%) 25 ml ASDIRECTED PRN IV SEE LABEL COMMENTS 12/23/20 14:45 Diltiazem HCl (Cardizem Cd) 180 mg DAILY PO 12/24/20 09:00 12/28/20 07:56 Enoxaparin Sodium (Lovenox) 80 mg Q12H SC 12/23/20 17:00 12/24/20 13:00 DC 12/24/20 05:12 Furosemide (Lasix) 20 mg MoTuWeThFr PO 12/25/20 09:00 12/28/20 07:55 Glucagon (Glucagon) 1 mg ASDIRECTED PRN SC SEE LABEL COMMENTS 12/23/20 14:45 Glucose (Glucose) 16 GM ASDIRECTED PRN PO SEE LABEL COMMENTS 12/23/20 14:45 Guaifenesin (Robitussin) 5 ml BIDP PRN PO COUGH 12/23/20 19:00 12/26/20 09:15 Home Med (Med Rec Complete!) ASDIRECTED XX 12/23/20 14:00 12/23/20 14:03 DC Insulin Human Lispro (HumaLOG INSULIN) SEE PROTOCOL TABLE AC SC 12/23/20 17:30 12/28/20 07:54 Insulin Human Lispro (HumaLOG INSULIN) SEE PROTOCOL TABLE QHS SC 12/23/20 21:00 Lactobacillus Acidophilus (Bacid) 2 ea WM PO 12/23/20 18:00 12/28/20 12:21 Magnesium Oxide (Mag-Ox) 400 mg BID PO 12/26/20 09:00 12/28/20 07:55 Methylprednisolone (SOLU medrol) 40 mg BID IV 12/28/20 21:00 Methylprednisolone (SOLU medrol) 40 mg DAILY IV 12/23/20 09:00 12/24/20 09:52 DC 12/24/20 08:20 Methylprednisolone (SOLU medrol) 40 mg Q12H IV 12/26/20 13:00 12/26/20 10:28 DC Methylprednisolone (SOLU medrol) 40 mg Q8H IV 12/24/20 17:00 12/26/20 08:10 DC 12/26/20 00:19 Methylprednisolone (SOLU medrol) 40 mg Q8H IV 12/26/20 13:00 12/26/20 11:41 DC Methylprednisolone (SOLU medrol) 40 mg Q8H IV 12/26/20 15:00 12/28/20 10:55 DC 12/28/20 06:31 Methylprednisolone (SOLU medrol) 60 mg Q12H IV 12/26/20 13:00 12/26/20 10:19 DC Nebivolol (Bystolic) 5 mg DAILY PO 12/24/20 09:00 12/28/20 07:54 Pantoprazole Sodium (Protonix) 40 mg QHS PO 12/23/20 21:00 12/27/20 20:49 Rivaroxaban (Xarelto) 10 mg DAILY@1700 PO 12/24/20 17:00 12/27/20 17:32 Salmeterol Xinafoate/ Fluticasone (Advair Hfa ) 2 puff RBID INH 12/27/20 20:00 12/28/20 08:03 Sodium Biphosphate/ Sodium Phosphate (Fleet Enema) 1 ea DAILYPRN PRN [place] CONSTIPATION 12/24/20 11:30 12/27/20 02:52 Sodium Chloride (Nacl 0.9% Solution For Inhalation) 3 ml RQ6H INH 12/24/20 14:00 12/26/20 11:17 DC 12/26/20 02:13 Tiotropium [place] (Spiriva Handihaler) 1 inhalation DAILY@08 INH 12/28/20 08:00 12/28/20 08:03 Allergies Coded Allergies: SEAFOOD (Verified Allergy, Severe, 02/03/18) pt. carries an epi pen Penicillins (Verified Allergy, Unknown, 01/27/19) Risa Crow MD Dec 28, 2020 16:47
[2020-12-28] MEDS: RIVAROXABAN 10 MG TAB (XARELTO) PO SCH (17:35)
[2020-12-28] MEDS: ACETAMINOPHEN TAB 650MG DOSE (2X325MG) PO PRN (21:44)
[2020-12-28] MEDS: PANTOPRAZOLE 40MG TAB (PROTONIX) PO SCH (21:45)
[2020-12-28 22:00] VITALS: BP 128/75
[2020-12-29] MEDS: ACETYLCYSTEINE 10% 30 ML VIAL INH SCH ×3 (02:56→19:13)
[2020-12-29] MEDS: IPRATROPIUM 0.5MG/ALBUTEROL 2.5MG INH SOL UD 3ML (DUONEB) NEB SCH ×3 (02:56→19:13)
[2020-12-29 06:00] VITALS: BP 126/74
[2020-12-29] MEDS: HumaLOG INSULIN (NovoLOG) PER UNIT SC SCH ×3 (07:30→16:35)
[2020-12-29 07:46] LABS: HEMATOCRIT 31.1 % (36.0-47.0); HEMOGLOBIN 9.8 g/dl (12.0-15.5); MEAN CORPUSCULAR HEMOGLOBIN 33.8 pg (27.0-33.0); MEAN CORPUSCULAR HGB CONC 31.5 g/dl (32.0-36.5); MEAN CORPUSCULAR VOLUME 107.2 fl (80.0-96.0); PLATELET COUNT, AUTOMATED 170 10^3/uL (150-450); WHITE BLOOD COUNT 13.6 10^3/uL (4.0-10.0)
[2020-12-29] MEDS: methylPREDNISolone 40MG 1ML VIAL IV SCH (08:09)
[2020-12-29] MEDS: diltiaZEM **CD** 180 MG CAP PO SCH (08:09)
[2020-12-29] MEDS: FUROSEMIDE 20 MG TAB PO SCH (08:09)
[2020-12-29] MEDS: NEBIVOLOL 5 MG TAB (BYSTOLIC) PO SCH (08:09)
[2020-12-29] MEDS: MAGNESIUM OXIDE 400MG TAB (MAG-OX) PO SCH ×2 (08:09→20:09)
[2020-12-29] MEDS: guaiFENesin SYRUP 200 MG/10 ML UDC PO PRN (08:09)
[2020-12-29] MEDS: LACTOBACILLUS ACIDOPHILUS CAP (BACID) PO SCH ×3 (08:10→18:20)
[2020-12-29 08:15] LABS: BILIRUBIN,TOTAL 0.2 MG/DL (0.2-1.0); CALCIUM LEVEL 8.1 MG/DL (8.5-10.1); CREATININE FOR GFR 1.03 MG/DL (0.55-1.30); GLOMERULAR FILTRATION RATE 59.2 (>51); POTASSIUM SERUM 4.5 MEQ/L (3.5-5.1)
[2020-12-29] MEDS: predniSONE 20 MG TAB PO SCH ×2 (11:25→20:09)
[2020-12-29 14:00] VITALS: BP 130/78
--- NOTE | 2020-12-29 14:04 | IPNPDOC ---
Date Seen The patient was seen on 12/29/20. Progress Note SUBJECTIVE: Continued improved aeration of right lung, wheezing and rhonchi still scattered on left lung. She feels chest physiotherapy vest is helping. Did well with PT. Patient denies chest pain, fevers, chills. OBJECTIVE: PHYSICAL EXAMINATION: VITAL SIGNS: Please see below GENERAL APPEARANCE: Sitting up at bedside chair, NAD, AAOx 3 HEENT: AT/NC LUNGS: improved aeration and decreased wheezing on right lung, persistent wheezing and rhonchi in left lung, occasional rhonchi as yesterday. No rales HEART: RRR, S1S2+, no M/R/G ABDOMEN: Soft, nontender. No peripheral edema. INTEGUMENTARY: intact, no lesions, erythema MSK: Normal ROM of all joints, no edema NEURO: CN 2-12 intact, no sensory or motor deficits, no focal deficits LABORATORY DATA: Please see below MICROBIOLOGY: Sputum Cx: few yeast ASSESSMENT: 55 y/o F with PMH of COVID-19 infection/PNA 11/2020, lung adenocarc inoma, hx of PE, atrial fibrillation, HTN who was admitted for COPD exacerbation likely 2/2 to recent COVID PNA. PLAN: COPD exacerbation likely 2/2 to recent COVID-19 PNA -Remains on 2 L NC, home amount; improved wheezing, rhonchi in right lung even more today -C/w mucomyst, now steroids PO BID , nebulizer tx, chest physiotherapy, etc. -Discussed with Dr. Hunter (pulmonary) who agrees with continued deescalation and, once on PO prednisone, can d/c home Macrocytic anemia -Baseline Hgb 9.4-11.7 -H/H stable -No s/s of bleeding but on xarelto, no IVFs, no hx of needing transfusions for anemia -Anemia w/u neg -F/u daily CBC Acute thrombocytopenia -Not on heparin products, on xarelto -PLT stable -F/u daily CBC Hx of PE -C/w AC, xarelto Atrial fibrillation, chornic -Rate controlled -C/w BB, xarelto Left lung adenocarcinoma with bone metastasis, diagnosed in 2017 -S/p 57 radiation treatments as well as chemotherapy. -She is now currently receiving maintenance therapy in the form of pemetrexed and bevasizumab -F/u with Dr. Marlin Carter at the [facility] for cancer care. HTN -Stable DVT px -Xarelto DISPOSITION: C/w care above. Likely d/c tomorrow if continues to improve. VS, I&O, 24H, Fishbone Vital Signs/I&O Vital Signs Date Time Temp Pulse Resp B/P (MAP) Pulse Ox O2 Delivery O2 Flow Rate FiO2 12/29/20 09:00 2.0 12/29/20 08:09 87 126/74 12/29/20 06:00 98.7 20 100 Nasal Cannula I&O- Last 24 Hours up to 6 AM 12/29/20 06:00 Intake Total 1730 ml Balance 1730 ml Laboratory Data 24H LABS Laboratory Tests 2 12/28/20 16:58: Bedside Glucose (Misc Panel) 129H 12/28/20 20:28: Bedside Glucose (Misc Panel) 207H 12/29/20 06:39: Nucleated Red Blood Cells % (auto) 0.4H, Anion Gap 6L, Glomerular Filtration Rate 59.2, Calcium Level 8.1L, Total Bilirubin 0.2, Aspartate Amino Transf (AST/SGOT) 20, Alanine Aminotransferase (ALT/SGPT) 66, Alkaline Phosphatase 81, Total Protein 6.0L, Albumin 3.0L, Albumin/Globulin Ratio 1.0L 12/29/20 11:21: Bedside Glucose (Misc Panel) 128H CBC/BMP Laboratory Tests 12/29/20 06:39 Microbiology Microbiology 12/23/20 Gram Stain - Final, Complete 12/23/20 Sputum Culture - Final, Complete Yeast Like Organism Current Medications Current Medications Medications (Trade) Dose Ordered Sig/Rashida Route PRN Reason Start Time Stop Time Status Last Admin Dose Admin Acetaminophen (Tylenol Tab) 650 mg Q6HP PRN PO PAIN / FEVER 12/24/20 11:30 12/28/20 21:44 Acetylcysteine (Mucomyst 10 % (100mg/ml)) 400 mg RQ6H INH 12/26/20 14:00 12/29/20 07:53 Albuterol/ Ipratropium (Duoneb (Ipr 0.5mg/Alb 2.5mg)) 3 ml Q2HP PRN NEB SOB/WHEEZING 12/23/20 13:15 Albuterol/ Ipratropium (Duoneb (Ipr 0.5mg/Alb 2.5mg)) 3 ml RQ6H NEB 12/23/20 14:00 12/29/20 13:12 Ceftaroline Fosamil 600 mg/ Dextrose 50 ml @ 50 mls/hr Q12H IV 12/23/20 18:00 12/26/20 08:10 DC 12/26/20 05:12 Dextrose (Dextrose 50%) 25 ml ASDIRECTED PRN IV SEE LABEL COMMENTS 12/23/20 14:45 Diltiazem HCl (Cardizem Cd) 180 mg DAILY PO 12/24/20 09:00 12/29/20 08:09 Enoxaparin Sodium (Lovenox) 80 mg Q12H SC 12/23/20 17:00 12/24/20 13:00 DC 12/24/20 05:12 Furosemide (Lasix) 20 mg MoTuWeThFr PO 12/25/20 09:00 12/29/20 08:09 Glucagon (Glucagon) 1 mg ASDIRECTED PRN SC SEE LABEL COMMENTS 12/23/20 14:45 Glucose (Glucose) 16 GM ASDIRECTED PRN PO SEE LABEL COMMENTS 12/23/20 14:45 Guaifenesin (Robitussin) 5 ml BIDP PRN PO COUGH 12/23/20 19:00 12/29/20 08:09 Home Med (Med Rec Complete!) ASDIRECTED XX 12/23/20 14:00 12/23/20 14:03 DC Insulin Human Lispro (HumaLOG INSULIN) SEE PROTOCOL TABLE AC SC 12/23/20 17:30 12/28/20 07:54 Insulin Human Lispro (HumaLOG INSULIN) SEE PROTOCOL TABLE QHS SC 12/23/20 21:00 Lactobacillus Acidophilus (Bacid) 2 ea WM PO 12/23/20 18:00 12/29/20 13:16 Magnesium Oxide (Mag-Ox) 400 mg BID PO 12/26/20 09:00 12/29/20 08:09 Methylprednisolone (SOLU medrol) 40 mg BID IV 12/28/20 21:00 12/29/20 08:35 DC 12/29/20 08:09 Methylprednisolone (SOLU medrol) 40 mg DAILY IV 12/23/20 09:00 12/24/20 09:52 DC 12/24/20 08:20 Methylprednisolone (SOLU medrol) 40 mg Q12H IV 12/26/20 13:00 12/26/20 10:28 DC Methylprednisolone (SOLU medrol) 40 mg Q8H IV 12/24/20 17:00 12/26/20 08:10 DC 12/26/20 00:19 Methylprednisolone (SOLU medrol) 40 mg Q8H IV 12/26/20 13:00 12/26/20 11:41 DC Methylprednisolone (SOLU medrol) 40 mg Q8H IV 12/26/20 15:00 12/28/20 10:55 DC 12/28/20 06:31 Methylprednisolone (SOLU medrol) 60 mg Q12H IV 12/26/20 13:00 12/26/20 10:19 DC Nebivolol (Bystolic) 5 mg DAILY PO 12/24/20 09:00 12/29/20 08:09 Pantoprazole Sodium (Protonix) 40 mg QHS PO 12/23/20 21:00 12/28/20 21:45 Prednisone (Deltasone) 40 mg BID PO 12/29/20 09:00 Rivaroxaban (Xarelto) 10 mg DAILY@1700 PO 12/24/20 17:00 12/28/20 17:35 Salmeterol Xinafoate/ Fluticasone (Advair Hfa / ) 2 puff RBID INH 12/27/20 20:00 12/28/20 19:34 Sodium Biphosphate/ Sodium Phosphate (Fleet Enema) 1 ea DAILYPRN PRN [place] CONSTIPATION 12/24/20 11:30 12/27/20 02:52 Sodium Chloride (Nacl 0.9% Solution For Inhalation) 3 ml RQ6H INH 12/24/20 14:00 12/26/20 11:17 DC 12/26/20 02:13 Tiotropium [place] (Spiriva Handihaler) 1 inhalation DAILY@08 INH 12/28/20 08:00 12/28/20 08:03 Allergies Coded Allergies: SEAFOOD (Verified Allergy, Severe, 02/03/18) pt. carries an epi pen Penicillins (Verified Allergy, Unknown, 01/27/19) Risa Crow MD Dec 29, 2020 14:04
[2020-12-29] MEDS: RIVAROXABAN 10 MG TAB (XARELTO) PO SCH (18:20)
[2020-12-29] MEDS: ADVAIR HFA 230/21MCG INHALER INH SCH (19:13)
[2020-12-29] MEDS: PANTOPRAZOLE 40MG TAB (PROTONIX) PO SCH (20:09)
[2020-12-29] MEDS: ACETAMINOPHEN TAB 650MG DOSE (2X325MG) PO PRN (20:10)
[2020-12-29 22:00] VITALS: BP 127/72
[2020-12-30] MEDS: ACETYLCYSTEINE 10% 30 ML VIAL INH SCH ×2 (01:47→07:40)
[2020-12-30] MEDS: IPRATROPIUM 0.5MG/ALBUTEROL 2.5MG INH SOL UD 3ML (DUONEB) NEB SCH ×2 (01:47→07:40)
[2020-12-30 06:00] VITALS: BP 116/66
[2020-12-30 06:22] LABS: HEMATOCRIT 30.5 % (36.0-47.0); HEMOGLOBIN 9.8 g/dl (12.0-15.5); MEAN CORPUSCULAR HEMOGLOBIN 34.4 pg (27.0-33.0); MEAN CORPUSCULAR HGB CONC 32.1 g/dl (32.0-36.5); PLATELET COUNT, AUTOMATED 162 10^3/uL (150-450); RED BLOOD COUNT 2.85 10^6/uL (4.00-5.40)
[2020-12-30 06:43] LABS: ALBUMIN 2.8 GM/DL (3.2-5.2); BILIRUBIN,TOTAL 0.3 MG/DL (0.2-1.0); CALCIUM LEVEL 8.7 MG/DL (8.5-10.1); CREATININE FOR GFR 1.06 MG/DL (0.55-1.30); GLOMERULAR FILTRATION RATE 57.3 (>51); POTASSIUM SERUM 4.3 MEQ/L (3.5-5.1); TOTAL PROTEIN 5.6 GM/DL (6.4-8.2)
[2020-12-30] MEDS: TIOTROPIUM INHALER/CAPSULE (SPIRIVA) INH SCH ×2 (07:40→08:14)
[2020-12-30] MEDS: ADVAIR HFA 230/21MCG INHALER INH SCH (07:40)
[2020-12-30] MEDS: LACTOBACILLUS ACIDOPHILUS CAP (BACID) PO SCH (08:07)
[2020-12-30] MEDS: MAGNESIUM OXIDE 400MG TAB (MAG-OX) PO SCH (08:08)
[2020-12-30] MEDS: diltiaZEM **CD** 180 MG CAP PO SCH (08:08)
[2020-12-30] MEDS: predniSONE 20 MG TAB PO SCH (08:09)
[2020-12-30] MEDS ORDERED: PRED20TA PO (08:22)
[2020-12-30] MEDS ORDERED: ALBU83IN INH (08:22)
[2020-12-30] MEDS ORDERED: GUAI100S51 PO (08:22)
[2020-12-30 09:55] VITALS: BP 116/66
[2020-12-30] MEDS: NEBIVOLOL 5 MG TAB (BYSTOLIC) PO SCH (09:55)
--- NOTE | 2020-12-30 14:47 | DS.PDOC ---
Discharge Summary General Date of Admission Dec 23, 2020 at 12:56 Date of Discharge 12/30/20 Attending Physician: Risa Crow MD Discharge Summary HPI: Patient is a 55-year-old patient who was admitted to [facility] on 12/23/20 for further treatment of COPD exacerbation 12/05 to recent COVID PNA. Per history, she was admitted to [facility] 12/20/2020 for a left-sided pneumonia, thought to be postobstructive. She had a CT scan of her chest done on 12/20/2020. It showed worsening left lower lobe pneumonia compared to CT of the chest from 11/24/2020. No significant change in atelectasis of most of the left upper lobe. Etiology is not actually defined. Left hilar mass is not excluded. Consider bronchoscopy for further evaluation. She was treated with azithromycin and ceftriaxone but did not make clinical improvement, so she was transferred to [facility]. She tested COVID negative during her current hospitalization at [facility]. 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 Marlin Carter. Note: Patient has had concurrent chemotherapy with radiation therapy with cisplatin/etoposide February through April 2018, adjuvant durvalumab June 2018- October 2019. Was found to have L5 metastasis January 2019. Received palliative radiation therapy. T12 metastasis April 2019. Received palliative radiation therapy. Started denosumab July 2019. Found to have a metastasis in the right femur and hip November 2019. Received radiation therapy. Began carboplatin/pemetrexed/bevacizumab four cycles December 2019-March 2020. Has been on maintenance pemetrexed/bevacizumab since March 2020. Last dose being July 2020. Was discontinued because of decreased ejection fraction of 40%-45% on echocardiogram done 08/18/2020. HOSPITAL COURSE: During her hospital course, patient was followed closely by pulmonary team. She was started on IV methylprednisolone and later PO prednisone, mucomyst, nebulizer treatments ATC and PRN, both vest chest physiotherapy and acapella (hand held). She slowly improved on this therapy. She did well with PT and remained on her home O2 amount for several days. With no worsening seen, she was both decreased in amount and swithed to PO steroids which she tolerated well. By 12/30/20 patient remained stable on home O2. It was decided to sent home with 2 week steroid taper, script for home nebulizer machine, albuterol treatments, to continue with home inhaler regimen and to follow up with pulmonary office after this weekend. Would recommend close monitoring of CBC by PCP, no s/s of bleeding but on xarelto, no IVFs, no hx of needing transfusions for anemia. All other chronic issues remained stable. At discharge, she had no new complaints, many questions were answered. PAST MEDICAL HISTORY: 1. Hypertension. 2. History of pulmonary embolism of unknown date. 3. Atrial fibrillation, onset August 2020, for which she was admitted at [facility]. 4. History of chronic obstructive pulmonary disease (COPD). 5. Thrombocytopenia. 6. Chronic anemia. 7. Gastroesophageal reflux disease (GERD). 8. She was admitted February 2020 for pneumonia and November 2020 for COVID. SURGICAL HISTORY: 1. Appendectomy. 2. Lumbar disc surgery in the dorsal spine. 3. Tonsillectomy. 4. Tubal ligation. 5. She has an intravenous (IV) port. SOCIAL HISTORY: Quit smoking 2 years ago. A pack per day smoker before that. FAMILY HISTORY: Father had a stroke and had diabetes. Mother had COPD. DISCHARGE MEDICATIONS: Please see below. PHYSICAL EXAMINATION: VITAL SIGNS: Please see below GENERAL APPEARANCE: Sitting up at bedside chair, NAD, AAOx 3 HEENT: AT/NC LUNGS: improved aeration and decreased wheezing on right lung, mild persistent wheezing and rhonchi in left lung, occasional rhonchi as yesterday. No rales HEART: RRR, S1S2+, no M/R/G ABDOMEN: Soft, nontender. No peripheral edema. INTEGUMENTARY: intact, no lesions, erythema MSK: Normal ROM of all joints, no edema NEURO: CN 2-12 intact, no sensory or motor deficits, no focal deficits LABORATORY DATA: Please see below MICROBIOLOGY: Sputum Cx: few yeast ASSESSMENT: 55 y/o F with PMH of COVID-19 infection/PNA 11/2020, lung adenocarcinoma, hx of PE, atrial fibrillation, HTN who was admitted for COPD exacerbation likely 2/2 to recent COVID PNA. PLAN: COPD exacerbation likely 2/2 to recent COVID-19 PNA -Remains on 2 L NC, home amount; improved wheezing, rhonchi in right lung even more today -Discussed with Dr. Hunter (pulmonary) prior to weekend -Sending home with home inhalers (spiriva, breo, rescue inhaler) and added albuterol nebs, wrote script for nebulizer to be delivered to home with tubing -She is to continue to use acapella Q2hrs while awake over this next week. -F/u with Dr. Garcia' office after weekend to schedule follow up Macrocytic anemia -Baseline Hgb 9.4-11.7 -H/H stable -No s/s of bleeding but on xarelto, no IVFs, no hx of needing transfusions for anemia -Anemia w/u neg Acute thrombocytopenia -Not on heparin products, on xarelto -PLT stable Hx of PE -C/w AC, xarelto Atrial fibrillation, chornic -Rate controlled -C/w BB, xarelto Left lung adenocarcinoma with bone metastasis, diagnosed in 2017 -S/p 57 radiation treatments as well as chemotherapy. -She is now currently receiving maintenance therapy in the form of pemetrexed and bevasizumab -F/u with Dr. Marlin Carter at the [facility] for cancer care. HTN -Stable DVT px -Xarelto DISPOSITION: Discharge today to follow up with Dr. Garcia' office after this weekend, also to notify PCP of recent hospitalization. Patient was sent with nebulizer to be delivered to her home with tubing. Albuterol inhaled nebs sent to pharmacy, to use PRN. TIME SPENT ON DISCHARGE: 40 minutes. Vital Signs/I&Os Vital Signs Date Time Temp Pulse Resp B/P (MAP) Pulse Ox O2 Delivery O2 Flow Rate FiO2 12/30/20 09:55 78 116/66 12/30/20 09:00 2.0 12/30/20 06:00 98.5 22 100 Nasal Cannula I&O- Last 24 Hours up to 6 AM 12/30/20 06:00 Intake Total 1800 ml Output Total 4 ml Balance 1796 ml Laboratory Data Labs 24H Laboratory Tests 2 12/29/20 16:28: Bedside Glucose (Misc Panel) 190H 12/30/20 05:44: Nucleated Red Blood Cells % (auto) 0.2H, Anion Gap 3L, Glomerular Filtration Rate 57.3, Calcium Level 8.7, Total Bilirubin 0.3, Aspartate Amino Transf (AST/SGOT) 16, Alanine Aminotransferase (ALT/SGPT) 58, Alkaline Phosphatase 72, Total Protein 5.6L, Albumin 2.8L, Albumin/Globulin Ratio 1.0L CBC/BMP Laboratory Tests 12/30/20 05:44 FSBS Laboratory Tests Test 12/29/20 16:28 Range/Units Bedside Glucose (Misc Panel) 190 70-105 MG/DL Microbiology Microbiology 12/23/20 Gram Stain - Final, Complete 12/23/20 Sputum Culture - Final, Complete Yeast Like Organism Discharge Medications Scheduled Aspirin (Aspirin EC) 81 Mg Tablet.dr, 81 MG PO DAILY, (Reported) Diltiazem Hcl (Diltiazem 24Hr ER) 180 Mg Cap.er.24h, 180 MG PO QHS, (Reported) Fluticasone/Vilanterol (Breo Ellipta 200-25 Mcg INH) 1 Each Blst.w.dev, 1 PUFF PO DAILY, (Reported) Folic Acid (Folic Acid) 0.4 Mg Tablet, 800 MCG PO DAILY, (Reported) Furosemide (Furosemide) 20 Mg Tablet, 20 MG PO 5XW, (Reported) FRI, , , FRI, SUN Lorazepam (Ativan) 1 Mg Tablet, 1 MG PO ONCE for procedure Magnesium Oxide (Magnesium Oxide) 500 Mg Tablet, 500 MG PO DAILY, (Reported) Nebivolol HCl (Bystolic) 5 Mg Tablet, 5 MG PO DAILY, (Reported) Pantoprazole Sodium (Pantoprazole Sodium) 40 Mg Tab, 40 MG PO DAILY, (Reported) Potassium Chloride (Potassium Chloride) 10 Meq Capsule.er, 10 MEQ PO 5XW, (Reported) FRI, , , FRI, SUN Prednisone (Prednisone) 20 Mg Tablet, 60 MG PO DAILY Prednisone taper: 60 mg PO x 5 days, 40 mg PO x 5 days, 20 mg PO x 4 days Rivaroxaban (Xarelto) 10 Mg Tablet, 10 MG PO DAILY, (Reported) Tiotropium [place] (Spiriva) 18 Mcg Cap, 1 PUFF INH DAILY, (Reported) Scheduled PRN Acetaminophen (Acetaminophen) 500 Mg Tablet, 1,000 MG PO Q8H PRN for PAIN, (Reported) Albuterol Sulf (Albuterol Sulfate) 2.5 Mg/3 Ml Vial.neb, 2.5 MG INH Q4-6HP PRN for SOB/WHEEZING Albuterol Sulfate (Proair Hfa) 108 Mcg/Act Aer, 1 PUFF INH Q4H PRN for SHORTNESS OF BREATH, (Reported) Guaifenesin (Guaifenesin) 100 Mg/5 Ml Liquid, 5 ML PO BIDP PRN for COUGH Loratadine (Claritin) 10 Mg Capsule, 10 MG PO DAILY PRN for ALLERGIES, (Reported) Ondansetron HCl (Ondansetron HCl) 8 Mg Tablet, 8 MG PO Q6H PRN for NAUSEA OR VOMITING Prochlorperazine Maleate (Prochlorperazine Maleate) 10 Mg Tablet, 10 MG PO Q8HP PRN for NAUSEA OR VOMITING Allergies Coded Allergies: SEAFOOD (Verified Allergy, Severe, 02/03/18) pt. carries an epi pen Penicillins (Verified Allergy, Unknown, 01/27/19) Risa Crow MD Dec 30, 2020 14:47
== END 2020-12-30 11:55 | disposition home or self-care (01) | DRG 140 ==
LOC: M PCU 12:56 → M MS5PR 12-27 16:07
PROVIDERS: ADMIT Internal Medicine; ATTEND Internal Medicine
DX: J44.1 Chronic obstructive pulmonary disease with (acute) exacerbation (principal); J18.9 Pneumonia, unspecified organism; J96.11 Chronic respiratory failure with hypoxia; C79.51 Secondary malignant neoplasm of bone; C34.92 Malignant neoplasm of unspecified part of left bronchus or lung; I10 Essential (primary) hypertension; D64.9 Anemia, unspecified; D69.6 Thrombocytopenia, unspecified; I48.91 Unspecified atrial fibrillation; J44.0 Chronic obstructive pulmonary disease with (acute) lower respiratory infection; K21.9 Gastro-esophageal reflux disease without esophagitis; Z90.49 Acquired absence of other specified parts of digestive tract; Z86.16 Personal history of COVID-19; Z87.891 Personal history of nicotine dependence; Z79.82 Long term (current) use of aspirin; Z86.711 Personal history of pulmonary embolism; Z79.01 Long term (current) use of anticoagulants; Z79.4 Long term (current) use of insulin; Z79.899 Other long term (current) drug therapy; Y95 Nosocomial condition

== ENCOUNTER 2021-01-01 12:04 | Emergency (ER) | payer BC, MEDICARE ==
[~2021-01-01] VITALS: Ht 152.4 cm; Wt 81.8 kg
[~2021-01-01 12:04] MED LIST changes: +ALBU83IN INH; +ASPI81TA26 PO; +GUAI100S51 PO
--- NOTE | 2021-01-01 13:18 | REP ---
INDICATION: fell. COMPARISON: Chest 04/04/2020. TECHNIQUE: Four views left ribs, PA view chest. FINDINGS: No acute rib fracture is seen. There is an old healed fracture of the left 5th rib. Left upper lobe consolidative opacity is unchanged. There is elevation of left hemidiaphragm unchanged. Metallic rods and wires are seen in the thoracic spine. A right central venous catheter is unchanged in position. There is chronic blunting of the right costophrenic angle. IMPRESSION: Chronic changes. No evidence of acute left rib fracture. <Electronically signed by Jason Torres > 01/01/21 [id number]
--- NOTE | 2021-01-01 15:09 | REP ---
INDICATION: FELL COMPARISON: None. TECHNIQUE: Frontal view of the pelvis with neutral and frog lateral views of the left hip. FINDINGS: Osseous structures demonstrate age-related changes. There is no evidence for acute fracture or dislocation. IMPRESSION: Age-related changes. No evidence for acute pelvic or left hip fracture. <Electronically signed by Timmy Jain > 01/01/21 [id number]
[2021-01-01 15:28] VITALS: BP 137/81
== END 2021-01-01 15:36 | disposition home or self-care (01) ==
LOC: M ED 12:04
DX: S70.02XA Contusion of left hip, initial encounter (principal); S20.219A Contusion of unspecified front wall of thorax, initial encounter; W01.0XXA Fall on same level from slipping, tripping and stumbling without subsequent striking against object, initial encounter; Y92.018 Other place in single-family (private) house as the place of occurrence of the external cause; I10 Essential (primary) hypertension; J44.9 Chronic obstructive pulmonary disease, unspecified; F41.9 Anxiety disorder, unspecified; K21.9 Gastro-esophageal reflux disease without esophagitis; Z85.118 Personal history of other malignant neoplasm of bronchus and lung; Z85.830 Personal history of malignant neoplasm of bone; Z79.899 Other long term (current) drug therapy; Z79.82 Long term (current) use of aspirin; Z79.01 Long term (current) use of anticoagulants; Z88.0 Allergy status to penicillin; Z91.018 Allergy to other foods; Z87.891 Personal history of nicotine dependence

== ENCOUNTER → 2021-01-09 | Outpatient (CLI) | payer BC, MEDICARE ==
[~2021-01-09] MED LIST changes: +NYST50SS PO
--- NOTE | 2021-01-09 15:56 | REP ---
INDICATION: LUMBOSACRAL PAIN COMPARISON: None. TECHNIQUE: AP, lateral, bilateral oblique, and coned-down views of the lumbar spine. FINDINGS: Old compression fractures at L1 and L4 are confirmed by prior CT dated 04/05/2020. Underlying generalized osteopenia and moderate degenerative changes are appreciated. Alignment and lordosis maintained. No new acute fracture/compression injury. IMPRESSION: 1. Old compression deformities at L1 and L4 with associated adjacent degenerative changes. 2. Osteopenia and moderate degenerative changes throughout the remainder of the lumbar spine. <Electronically signed by Timmy Jain > 01/09/21 1527
== END ==
LOC: M RAD 14:50
PROVIDERS: ATTEND Internal Medicine Medical Oncology
DX: M51.37 Other intervertebral disc degeneration, lumbosacral region (principal); M51.36 Other intervertebral disc degeneration, lumbar region; S32.010D Wedge compression fracture of first lumbar vertebra, subsequent encounter for fracture with routine healing; S32.040D Wedge compression fracture of fourth lumbar vertebra, subsequent encounter for fracture with routine healing; M85.88 Other specified disorders of bone density and structure, other site; X58.XXXD Exposure to other specified factors, subsequent encounter; Y92.9 Unspecified place or not applicable; Y93.9 Activity, unspecified; Y99.9 Unspecified external cause status

== ENCOUNTER 2021-01-13 10:06 | Emergency (ER) | payer BC, MEDICARE ==
[~2021-01-13] VITALS: Ht 152.4 cm; Wt 81.6 kg
--- NOTE | 2021-01-13 10:49 | REP ---
INDICATION: DYSPNEA/COUGH COMPARISON: 01/01/2021 TECHNIQUE: Portable AP view of the chest FINDINGS: The bilateral lung patterson are stable with large left upper lobe opacity/mass again identified. No obvious new acute pleuroparenchymal process appreciated. Mediastinum and cardiac silhouette stable. Gonzalez rods and [id number] again identified and unchanged. IMPRESSION: No significant change from prior examination dated 01/01/2021. Large left upper lobe opacity/mass again noted. <Electronically signed by Timmy Jain > 01/13/21 [id number]
[2021-01-13 11:01] LABS: VENOUS PH 7.424 UNITS (7.330-7.430)
[2021-01-13 11:02] LABS: VENOUS BASE EXCESS 5.8 (-2.0-2.0); VENOUS HCO3 31.2 MEQ/L (23.0-27.0); VENOUS O2 SATURATION 97.4 % (60.0-80.0); VENOUS PARTIAL PRESSURE CO2 48.7 mmHg (38.0-50.0); VENOUS PARTIAL PRESSURE O2 94.5 mmHg (30.0-50.0); VENOUS STANDARD HCO3 29.8 MEQ/L; VENOUS TOTAL CO2 32.7 MEQ/L (24.0-28.0)
[2021-01-13 11:08] LABS: HEMATOCRIT 32.7 % (36.0-47.0); HEMOGLOBIN 10.4 g/dl (12.0-15.5); MEAN CORPUSCULAR HEMOGLOBIN 34.3 pg (27.0-33.0); MEAN CORPUSCULAR HGB CONC 31.8 g/dl (32.0-36.5); MEAN CORPUSCULAR VOLUME 107.9 fl (80.0-96.0); PLATELET COUNT, AUTOMATED 192 10^3/uL (150-450); RED BLOOD COUNT 3.03 10^6/uL (4.00-5.40); WHITE BLOOD COUNT 13.9 10^3/uL (4.0-10.0)
[2021-01-13 11:14] LABS: BASO % 0.1 % (0.0-1.0); EOS # 0.1 10^3/uL (0.0-0.5); EOS % 0.7 % (0.0-3.0); LYMPH # 0.3 10^3/uL (1.5-5.0); LYMPH % 2.2 % (24.0-44.0); MONO # 0.1 10^3/uL (0.0-0.8); MONO % 0.7 % (2.0-8.0); NEUTROPHILS # 13.3 10^3/uL (1.5-8.5); NEUTROPHILS % 95.9 % (36.0-66.0)
[2021-01-13 11:18] LABS: INR 1.51; PROTHROMBIN TIME 18.5 SECONDS (12.5-14.3)
[2021-01-13 11:22] LABS: EOSINOPHILS 5 % (0-3); LYMPHOCYTES 2 % (16-44); NEUTROPHILS 92 % (28-66)
[2021-01-13 11:23] LABS: ANISOCYTOSIS 2+; HYPOCHROMASIA 1+
[2021-01-13 11:24] LABS: MICROCYTOSIS 2+; PLATELET CLUMPS SMALL AMT; PLATELET ESTIMATE NORMAL (NORMAL)
[2021-01-13 11:39] LABS: ALBUMIN 3.3 GM/DL (3.2-5.2); BILIRUBIN,DIRECT 0.2 MG/DL (0.0-0.2); BILIRUBIN,TOTAL 0.9 MG/DL (0.2-1.0); THYROID STIMULATING HORMONE 0.686 uIU/ML (0.358-3.740); TOTAL PROTEIN 6.6 GM/DL (6.4-8.2)
[2021-01-13] MEDS ORDERED: NS 500 ML IV ONE (11:55)
[2021-01-13] MEDS ORDERED: ISOVUE-370 76% 100ML VIAL As Ordered ONE (11:56)
--- NOTE | 2021-01-13 13:04 | ECGEPIP ---
[facility] - ED Test Date: 2021-01-13 Pat Name: JESSIE SOLOMON Department: Room: - Gender: Female Passenger Representative: MIKAEL : 1965 Requested By: Nichol Riggins Order Number: [id number] Reading MD: Geronimo Lynn Measurements Intervals [place] Rate: 79 P: 10 [place]: 158 QRS: -18 QRSD: 72 T: 109 QT: 360 QTc: 412 Interpretive Statements Normal sinus rhythm Left ventricular hypertrophy with repolarization abnormality ( R in aVL ) NSTTW ABNORMALITY(S) SIMILAR TO 09/22/19 Electronically Signed on 01-13-2021 13:04:09 EST by Geronimo Lynn
--- NOTE | 2021-01-13 13:25 | REP ---
INDICATION: hemoptysis, lung ca, wheezing COMPARISON: 12/23/2020, 03/20/2020 TECHNIQUE: Axial contrast enhanced images from the thoracic inlet to the upper abdomen using pulmonary embolus technique with multiplanar re-formations. 75 ml Isovue 370 intravenous contrast material administered without complication. This CT examination was performed using the following dose reduction techniques: Automated exposure control, adjustment of mA and/or kv according to the patient's size, and use of iterative reconstruction technique. FINDINGS: The pulmonary arterial system appears relatively well aerated, unchanged compared to prior contrast-enhanced examination dated 03/20/2020, and without obvious pulmonary embolus. Thoracic aorta without aneurysm or dissection. Heart and pericardium are stable and without cardiomegaly or pericardial effusion. Left hemithorax again demonstrates volume loss with large area of mass/consolidation involving the left upper lung zone. The aerated portion of the left lower lung demonstrates subtle new reticulonodular/"tree-in-bud" opacities suggesting mild acute process either representing a pneumonia/pneumonitis or progression of malignancy. The right hemithorax is relatively clear and essentially stable. No pleural effusion. No pneumothorax. Surrounding musculoskeletal structures remains stable. Rlwhpf-C-Boye extends into the SVC. Limited upper abdomen demonstrates normal bilateral adrenal glands. IMPRESSION: 1. Chronic changes. No evidence for pulmonary embolus. 2. Large mass/consolidation involving the left upper lung zone with associated volume loss remains essentially unchanged. 3. Aerated left lower lung zone demonstrates a new mild interstitial pattern suggesting either an acute pneumonia/pneumonitis or progression of malignancy. <Electronically signed by Timmy Jain > 01/13/21 [id number]
[2021-01-13] MEDS ORDERED: CEFD1CAP8 PO (14:21)
[2021-01-13] MEDS ORDERED: PRED20TA PO (14:21)
[2021-01-13] MEDS ORDERED: MUCI600T31 PO (14:22)
[2021-01-13 14:57] VITALS: BP 134/65
--- NOTE | 2021-01-13 17:27 | ED PDOC ---
Post-Departure Follow-Up radiology repor tfaxed to Nichol Magaña MD Jan 13, 2021 17:27
== END 2021-01-13 15:07 | disposition home or self-care (01) ==
LOC: M ED 10:06
DX: R91.8 Other nonspecific abnormal finding of lung field (principal); R04.2 Hemoptysis; C34.90 Malignant neoplasm of unspecified part of unspecified bronchus or lung; J44.9 Chronic obstructive pulmonary disease, unspecified; Z86.16 Personal history of COVID-19; Z79.899 Other long term (current) drug therapy; Z79.82 Long term (current) use of aspirin; Z79.01 Long term (current) use of anticoagulants; Z88.0 Allergy status to penicillin; Z91.018 Allergy to other foods; Z87.891 Personal history of nicotine dependence
CPT/HCPCS: 36415; 71045; 71275; 80047; 80076; 82803; 83605; 83880; 84443; 84484; 85025; 85610; 87040; 93005; 93041; 99285; Q9967

== ENCOUNTER → 2021-01-17 | Outpatient (REF) | payer BC, MEDICARE ==
[~2021-01-17] MED LIST changes: +CEFD1CAP8 PO
== END ==
LOC: M LAB REF 16:45
PROVIDERS: ATTEND Internal Medicine Pulmonary Disease
DX: R91.8 Other nonspecific abnormal finding of lung field (principal)

== ENCOUNTER → 2021-01-30 | Outpatient (REF) | payer BC, MEDICARE ==
[~2021-01-30] MED LIST changes: +BREO1INH3 INH; +CVS100LI4 PO; +LORA-674 PO; +MAGN400T2 PO; +NYST50SS SS; +SPIR12.9 INH; +levaquin PO
== END ==
LOC: M LAB REF 17:15
PROVIDERS: ATTEND Internal Medicine Pulmonary Disease
DX: J44.9 Chronic obstructive pulmonary disease, unspecified (principal)

== ENCOUNTER 2021-01-31 19:12 | Inpatient (IN) | payer BC, MEDICARE ==
[~2021-01-31] VITALS: Ht 152.4 cm; Wt 79.4 kg
[2021-01-31] MEDS: DOCUSATE SODIUM 100MG CAPSULE PO SCH (00:46)
[~2021-01-31 19:12] MED LIST changes: -BREO1INH3 PO; -CVS100LI4 PO; -LORA-674 PO; -MAGN400T2 PO; -NYST50SS SS; -SPIR12.9 INH; -levaquin PO
[2021-01-31] MEDS ORDERED: levaquin PO (19:38)
[2021-01-31] MEDS ORDERED: BREO1INH3 PO (19:40)
[2021-01-31] MEDS ORDERED: NS 1,000 ML IV SCH (19:50)
[2021-01-31] MEDS ORDERED: ISOVUE-370 76% 100ML VIAL As Ordered ONE (20:25)
[2021-01-31 20:37] LABS: HEMATOCRIT 29.5 % (36.0-47.0); HEMOGLOBIN 9.8 g/dl (12.0-15.5); MEAN CORPUSCULAR HGB CONC 33.2 g/dl (32.0-36.5); MEAN CORPUSCULAR VOLUME 108.5 fl (80.0-96.0); PLATELET COUNT, AUTOMATED 340 10^3/uL (150-450); RED BLOOD COUNT 2.72 10^6/uL (4.00-5.40); WHITE BLOOD COUNT 19.5 10^3/uL (4.0-10.0)
[2021-01-31] MEDS ORDERED: NYSTATIN 500,000 U/5 ML SUSP UDC SS PRN (21:00)
--- NOTE | 2021-01-31 21:05 | REPVR ---
PROCEDURE INFORMATION: Exam: CT Angiography Chest With Contrast Exam date and time: 01/31/2021 8:43 PM Age: 55 years old Clinical indication: Other: Hemoptysis; Additional info: Hemoptysis, lung cancer TECHNIQUE: Imaging protocol: Computed tomographic angiography of the chest with contrast. 3D rendering (Not supervised by radiologist): MIP and/or 3D reconstructed images were created by the technologist. Radiation optimization: All CT scans at this facility use at least one of these dose optimization techniques: automated exposure control; mA and/or kV adjustment per patient size (includes targeted exams where dose is matched to clinical indication); or iterative reconstruction. Contrast material: ISOVUE 370; Contrast volume: 75 ml; Contrast route: INTRAVENOUS (IV); COMPARISON: CT ANGIO CHEST 01/13/2021 12:58 PM FINDINGS: Pulmonary arteries: There are no pulmonary emboli. Small branches of the pulmonary artery supplying the left upper lobe are narrowed likely related to regional tumoral encasement, findings stable. Aorta: There is mild atherosclerosis in the thoracic aorta. There is no aortic dissection or aneurysm. Lungs: Dense infiltrate/mass in the left upper lobe again redemonstrated associated with volume loss and air bronchograms. Findings consistent with known history of parenchymal malignancy and postobstructive change. Patchy ground-glass opacities in the right middle and lower lobes may represent atelectasis although pneumonitis not excluded. Pleural spaces: Unremarkable. No pneumothorax. No pleural effusion. Heart: Unremarkable. No cardiomegaly. No pericardial effusion. Lymph nodes: Unremarkable. No enlarged lymph nodes. Spleen: The spleen demonstrates punctate calcifications, consistent with remote granulomatous organism exposure. Bones/joints: Status post placement of Gonzalez rods in the thoracic spine. Stable severe compression deformity at T8. Osteoporosis. Soft tissues: Unremarkable. IMPRESSION: 1. Dense infiltrate/mass in the left upper lobe again redemonstrated associated with volume loss and air bronchograms. Findings consistent with known history of parenchymal malignancy and postobstructive change. 2. Patchy ground-glass opacities in the right middle and lower lobes may represent atelectasis although pneumonitis not excluded. 3. There is no aortic dissection or aneurysm. 4. There are no pulmonary emboli. Small branches of the pulmonary artery supplying the left upper lobe are narrowed likely related to regional tumoral encasement, findings stable. Electronically signed by: Tadeo Sanford On 01/31/2021 21:05:04 PM
[2021-01-31 21:11] LABS: LYMPHOCYTES 5 % (16-44); MONOCYTES 2 % (0-5); NEUTROPHILS 92 % (28-66); PLATELET ESTIMATE NORMAL (NORMAL)
[2021-01-31 21:13] LABS: ANISOCYTOSIS 1+
[2021-01-31] MEDS ORDERED: SPIR12.9 INH (22:28)
[2021-01-31] MEDS ORDERED: FLUC150T PO (22:28)
[2021-01-31] MEDS ORDERED: LORA-674 PO (22:28)
[2021-01-31] MEDS ORDERED: ALBU83IN INH (22:28)
[2021-01-31] MEDS ORDERED: NYST50SS SS (22:28)
[2021-01-31] MEDS ORDERED: PRED10TA2 PO (22:28)
[2021-01-31] MEDS ORDERED: CVS100LI4 PO (22:28)
[2021-01-31] MEDS ORDERED: MAGN400T2 PO (22:28)
[2021-01-31] MEDS ORDERED: guaiFENesin SYRUP 200 MG/10 ML UDC PO PRN (22:40)
[2021-01-31] MEDS ORDERED: LORATADINE 10 MG TAB PO PRN (22:40)
[2021-01-31] MEDS ORDERED: MAALOX 30 ML SUSP *UDC PO PRN (22:40)
--- NOTE | 2021-01-31 23:23 | HPEPDOC ---
[facility] [place] Medical History & Physical Date of Admission Jan 31, 2021 Date of Service: Jan 31, 2021 Attending Physician: OPAL CHEN MD History and Physical CHIEF COMPLAINT: [55 y/o F presents to the ED with a 2 day hx of hemoptysis.] HISTORY OF PRESENT ILLNESS: [This is a 55 year old female with an unfortunate pmh of COPD, lung cancer with luis metastasis, PE, TIA, HTN, JORDAN and a-fib who presents to the ED today due to acute onset hemoptysis. Patient states that she has been dealing with a pneumonia that was diagnosed some time ago that has not gone away. Patient states that she saw her mental health case manager, Dr. Garcia, yesterday who switched her abx to levoquin and she took her dose this morning. Patient states the reason she came to the ER was that she coughed up "about a cup" of blood and was concerned because she had never had hemoptysis to this scale before. Patient states that she does not have any acute onset associated chest pain, increased SOB, dizziness, lightheadedness, fevers, chills, nausea vomiting. Patient currently undergoing maintenance chemotherapy for her lung ca with Dr. Carter, oncology.] PAST MEDICAL HISTORY: 1. See HPI PAST SURGICAL HISTORY: 1. [Appendectomy]. 2. [Spine surgery]. SOCIAL HISTORY: Marital status: []. Resides in: [Home with family] Employment: [Disabled] Tobacco use:[Former] ETOH: [No] Illicit drug use: [No] ALLERGIES: Please see below. REVIEW OF SYSTEMS: CONSTITUTIONAL: [See HPI.]. HEENT: [See HPI.]. CARDIOVASCULAR: [See HPI.]. RESPIRATORY: [See HPI.]. GASTROINTESTINAL: [See HPI.]. GENITOURINARY: [Denies dysuria]. SKIN: [Denies rash]. MUSCULOSKELETAL: [Denies acute joint pain]. NEUROLOGICAL: [See HPI]. ENDOCRINE: [Denies hx of DM]. HEMATOLOGIC/LYMPHATIC: [See HPI]. HOME MEDICATIONS: Please see below. PHYSICAL EXAMINATION: VITAL SIGNS: Please see below. GENERAL APPEARANCE: [This is a 55 year old white female seated comfortably in bed. She appears to be in no acute distress.]. HEENT: [No mass or lesion. No scleral icterus or conjunctival erythema. EOMI. Nares patent. Oral mucosa moist without erythema.]. CARDIOVASCULAR: [Regular rate, rhythm. No murmurs, rubs or gallops.]. LUNGS: [Scattered rales and wheezes, decreased lung sounds on left side.]. ABDOMEN: [Soft, non-distended, non-tender.]. MUSCULOSKELETAL: [No joint deformity noted]. EXTREMITIES: [Warm, dry. No peripheral edema, clubbing, cyanosis noted]. NEUROLOGICAL: [A+Ox3, speech clear. no focal deficits]. PSYCHIATRIC: [Mood and affect appear appropriate]. LABORATORY DATA: See below. IMAGING: [CTA Chest: Pulmonary arteries: There are no pulmonary emboli. Small branches of the pulmonary artery supplying the left upper lobe are narrowed likely related to regional tumoral encasement, findings stable. Aorta: There is mild atherosclerosis in the thoracic aorta. There is no aortic dissection or aneurysm. Lungs: Dense infiltrate/mass in the left upper lobe again redemonstrated associated with volume loss and air bronchograms. Findings consistent with known history of parenchymal malignancy and postobstructive change. Patchy ground-glass opacities in the right middle and lower lobes may represent atelectasis although pneumonitis not excluded. Pleural spaces: Unremarkable. No pneumothorax. No pleural effusion. Heart: Unremarkable. No cardiomegaly. No pericardial effusion. Lymph nodes: Unremarkable. No enlarged lymph nodes. Spleen: The spleen demonstrates punctate calcifications, consistent with remote granulomatous organism exposure. Bones/joints: Status post placement of Gonzalez rods in the thoracic spine. Stable severe compression deformity at T8. Osteoporosis. Soft tissues: Unremarkable. IMPRESSION: 1. Dense infiltrate/mass in the left upper lobe again redemonstrated associated with volume loss and air bronchograms. Findings consistent with known history of parenchymal malignancy and postobstructive change. 2. Patchy ground-glass opacities in the right middle and lower lobes may represent atelectasis although pneumonitis not excluded. 3. There is no aortic dissection or aneurysm. 4. There are no pulmonary emboli. Small branches of the pulmonary artery supplying the left upper lobe are narrowed likely related to regional tumoral encasement, findings stable. ] MICROBIOLOGY: Please see below. ASSESSMENT/PLAN: 1. [Hemoptysis - Probably multifactorial given this patients extensive pulmonary hx. Pneumonia vs. malignancy - Bleeding has improved on its own since presentation in the ED, hopefully she will continue to improve - Will hold patient's eliquis and aspirin as she is actively bleeding - Dr. Dominguez, pulmonology, has been informed of Mrs. Hurst's situation and has agreed to follow as a consult. We thank them for the assistance. - We will continue levoquin 750mg po daily - Current Hb is 9.8, since bleeding seems to be slowing, we will trend H/H every 12 hours. Patient hemodynamically stable at this time. - Transfuse if Hb drops below 7 - Iron studies ordered - admit to pcu with tele 2. COPD - continue at home inhalers, spiriva, symbicort - continue at home guaifenesin - continue at home oxygen of 2L nasal canula 3. Malignancy - Patient follows with oncology outpatient 4. A-fib - Patient currently does not appear to be in a-fib - We will hold anticoagulants as previously stated - continue cardizem, nebivolol 5. HTN - continue lasix 6. GERD - continue pantoprazole 7. JORDAN - at home cpap 8. DVT prophylaxis - TEDs, and sequentials - We will monitor this complication closely as patient has history of PE]. Vital Signs Vital Signs Date Time Temp Pulse Resp B/P (MAP) Pulse Ox O2 Delivery O2 Flow Rate FiO2 01/31/21 22:00 139/90 (106) 01/31/21 21:57 96 100 01/31/21 19:26 97.7 18 Laboratory Data Labs 24H Laboratory Tests 2 01/31/21 20:17: Immature Granulocyte % (Auto) , Neutrophils (%) (Auto) , Nucleated Red Blood Cells % (auto) 0.4H, Neutrophils 92H, Band Neutrophils 1, Lymphocytes (Manual) 5L, Monocytes (Manual) 2, Anisocytosis 1+, Macrocytosis 2+, Platelet Estimate NORMAL, Lactic Acid Level 2.0 CBC/BMP Laboratory Tests 01/31/21 20:17 Microbiology Microbiology 01/31/21 Blood Culture, Received Pending 01/31/21 Blood Culture, Received Pending Home Medications Scheduled Aspirin (Aspirin EC) 81 Mg Tablet.dr, 81 MG PO DAILY Diltiazem Hcl (Diltiazem 24Hr ER) 180 Mg Cap.er.24h, 180 MG PO QHS Fluticasone/Vilanterol (Breo Ellipta 200-25 Mcg INH) 1 Each Blst.w.dev, 1 PUFF INH DAILY Folic Acid (Folic Acid) 0.4 Mg Tablet, 800 MCG PO DAILY Furosemide (Furosemide) 20 Mg Tablet, 40 MG PO 5XW MON, , , FRI, SAT Magnesium Oxide (Magnesium Oxide) 400 Mg Tablet, 400 MG PO QHS Nebivolol HCl (Bystolic) 5 Mg Tablet, 5 MG PO DAILY Pantoprazole Sodium (Pantoprazole Sodium) 40 Mg Tab, 40 MG PO DAILY Potassium Chloride (Potassium Chloride) 10 Meq Capsule.er, 10 MEQ PO 5XW FRI, , , FRI, SAT Prednisone (Prednisone) 10 Mg Tablet, 10 MG PO TAPER 40MG FOR 5 DAYS, 30MG FOR 5 DAYS, 20MG FOR 5 DAYS, 10MG FOR 5 DAYS AND 5MG FOR 5 DAYS. DOSE ON 02/01/21 IS LAST DOSE OF 3OMG. Rivaroxaban (Xarelto) 10 Mg Tablet, 10 MG PO DAILY Tiotropium [place] (Spiriva Respimat) 4 Gm Mist.inhal, 2 PUFFS INH DAILY Scheduled PRN Acetaminophen (Acetaminophen) 500 Mg Tablet, 1,000 MG PO Q8H PRN for PAIN Albuterol Sulf (Albuterol Sulfate) 2.5 Mg/3 Ml Vial.neb, 2.5 MG INH Q4H PRN for SHORTNESS OF BREATH Fluconazole (Fluconazole) 150 Mg Tablet, 150 MG PO Q2D PRN for THRUSH Guaifenesin (Tussin) 100 Mg/5 Ml Liquid, 200 MG PO Q4H PRN for CONGESTION Loratadine (Loratadine) 10 Mg Tablet, 10 MG PO DAILY PRN for ALLERGIES Nystatin (Nystatin Oral Susp) 100,000 Unit/1 Ml Oral.susp, 5 ML SS QID PRN for THRUSH Allergies Coded Allergies: SEAFOOD (Verified Allergy, Severe, 02/03/18) pt. carries an epi pen Penicillins (Verified Allergy, Unknown, 01/27/19) A-FIB/CHADSVASC A-FIB History Current/History of A-Fib/PAF?: Yes Current PO Anticoag Therapy: No (current bleeding) FARHAN RAZA Jan 31, 2021 23:23
[2021-02-01] VITALS (14 sets, daily range): BP systolic 108–138; BP diastolic 63–78; O2SAT 95–100
[2021-02-01 00:08] LABS: FERRITIN 334 NG/ML (8-252); IRON (FE) 60 UG/DL (50-170); PERCENT SATURATION 20.5 % (13.2-45.0); TOTAL IRON BINDING CAPACITY 293 UG/DL (250-450)
[2021-02-01] MEDS: MAGNESIUM OXIDE 400MG TAB (MAG-OX) PO SCH ×2 (00:58→20:20)
[2021-02-01] MEDS: diltiaZEM **CD** 180 MG CAP PO SCH ×2 (00:59→20:19)
[2021-02-01] MEDS: ACETAMINOPHEN TAB 650MG DOSE (2X325MG) PO PRN ×2 (01:07→16:50)
[2021-02-01 06:05] LABS: HEMATOCRIT 27.5 % (36.0-47.0); MEAN CORPUSCULAR HEMOGLOBIN 35.9 pg (27.0-33.0); MEAN CORPUSCULAR HGB CONC 32.7 g/dl (32.0-36.5); MEAN CORPUSCULAR VOLUME 109.6 fl (80.0-96.0); PLATELET COUNT, AUTOMATED 319 10^3/uL (150-450); RED BLOOD COUNT 2.51 10^6/uL (4.00-5.40); WHITE BLOOD COUNT 18.7 10^3/uL (4.0-10.0)
[2021-02-01 06:26] LABS: BLOOD UREA NITROGEN 19 MG/DL (7-18); CALCIUM LEVEL 8.3 MG/DL (8.5-10.1); CARBON DIOXIDE LEVEL 37 MEQ/L (21-32); CHLORIDE LEVEL 98 MEQ/L (98-107); CREATININE FOR GFR 1.01 MG/DL (0.55-1.30); GLOMERULAR FILTRATION RATE > 60.0 (>51); GLUCOSE, FASTING 166 MG/DL (70-100); SODIUM LEVEL 138 MEQ/L (136-145)
[2021-02-01 08:00] LABS: FOLATE > 24.0 NG/ML (>5.4); VITAMIN B12 LEVEL 423 PG/ML (247-911)
[2021-02-01] MEDS: SYMBICORT 160/4.5MCG INHALER 6GM INH SCH ×2 (08:26→20:09)
[2021-02-01] MEDS: TIOTROPIUM INHALER/CAPSULE (SPIRIVA) INH SCH (08:26)
[2021-02-01] MEDS ORDERED: FUROSEMIDE 20 MG TAB PO SCH (09:00)
[2021-02-01] MEDS ORDERED: predniSONE 10 MG TAB PO SCH (09:00)
--- NOTE | 2021-02-01 09:04 | IPNPDOC ---
Date Seen The patient was seen on 02/01/21. Progress Note pls have unit aide tech call hypertype at [phone] Goetz's progress note. job #[id number] VS, I&O, 24H, Fishbone Vital Signs/I&O Vital Signs Date Time Temp Pulse Resp B/P (MAP) Pulse Ox O2 Delivery O2 Flow Rate FiO2 02/01/21 08:00 97.5 83 18 112/65 (81) 96 Nasal Cannula 3.0 I&O- Last 24 Hours up to 6 AM 02/01/21 05:59 Intake Total 995 ml Output Total 300 ml Balance 695 ml Laboratory Data 24H LABS Laboratory Tests 2 01/31/21 20:17: Immature Granulocyte % (Auto) , Neutrophils (%) (Auto) , Nucleated Red Blood Cells % (auto) 0.4H, Neutrophils 92H, Band Neutrophils 1, Lymphocytes (Manual) 5L, Monocytes (Manual) 2, Anisocytosis 1+, Macrocytosis 2+, Platelet Estimate NORMAL, Lactic Acid Level 2.0 01/31/21 23:41: Iron Level 60, Total Iron Binding Capacity 293, Transferrin % Saturation 20.5, Ferritin 334H, Vitamin B12 Level 423, Folate > 24.0 02/01/21 05:31: Nucleated Red Blood Cells % (auto) 0.2H, Anion Gap 3L, Glomerular Filtration Rate > 60.0, Calcium Level 8.3L CBC/BMP Laboratory Tests 01/31/21 20:17 02/01/21 05:31 Microbiology Microbiology 01/31/21 Blood Culture, Received Pending 01/31/21 Blood Culture, Received Pending JEANETTE GOETZ MD Feb 01, 2021 09:04
--- NOTE | 2021-02-01 09:49 | IPN ---
PROGRESS NOTE DATE: 02/01/2021 SUBJECTIVE: The patient still complains of mild dyspnea, some shortness of breath but chronically on 3 liters nasal cannula, saturating 96-100%. She denies any fevers or chills. Occasional pain right underneath the left breast. She describes this as musculoskeletal. OBJECTIVE: Vital signs: Temperature 97.5, pulse 83, respiratory rate 18, blood pressure 112/65, 96% on 3 liters nasal cannula. Generally no pallor, icterus, jaundice. The patient is awake, alert, oriented, no conversational dyspnea. Currently not hemoptysizing. No jugular venous distention (JVD), thyromegaly or cervical lymphadenopathy. No stridor. Lungs are clear to auscultation bilaterally. Air entry is equal. Heart: S1, S2 sinus rhythm. Abdomen is obese, soft, nontender, nondistended. Extremities: No cyanosis, clubbing or pitting edema. LABORATORY DATA: White count 18.7, hemoglobin 9, hematocrit 27, platelet count 319. Sodium 138, potassium 4, chloride 98, bicarb 37, BUN 19, creatinine 1, glucose 166. CT chest 01/31/2021: Left upper lobe dense infiltrate consistent with malignancy with postobstructive change, ground glass opacity right middle and lower lobe with atelectasis. No PE. Findings are stable. ASSESSMENT AND PLAN: This is a 55-year-old female undergoing chemotherapy and followed at the [facility] for lung CA with metastatic lesions to the spine status post cisplatin and etoposide, adjuvant Durvalumab with L5 metastases status post radiation on maintenance Pemetrexed and Bevacizumab which had been discontinued due to systolic heart failure and cardiomyopathy, presented due to hemoptysis. IMPRESSION: 1. Hemoptysis/acute blood loss anemia. The patient's anticoagulant and antiplatelets have been discontinued due to active blood loss. [employer] Ha[employer] Truck Driver, Dr. Dominguez, has been consulted to determine the need for bronchoscopy. The patient will be kept NPO. We are monitoring her hemoglobin and hematocrit and more importantly her respiratory status. She is saturating well at 96% to 100% on 2 liters of nasal cannula. 2. Chronic hypoxic respiratory failure secondary to chronic obstructive pulmonary disease, lung CA. Saturating well. Continue with supportive care. 3. Chronic obstructive pulmonary disease, no acute exacerbation. Resumed on home Spiriva, Symbicort, and supplemental oxygen. 4. Lung CA currently undergoing chemotherapy with Dr. Carter. Dr. Carter has been informed that the patient has been admitted and chemotherapy needs to be rescheduled. 5. Atrial fibrillation, off anticoagulation and Aspirin due to acute blood loss and hemoptysis. 6. Hypertension, on chronic Lasix. 7. Gastroesophageal reflux disease, on Protonix. 8. Obstructive sleep apnea, on home CPAP. 9. DVT prophylaxis. Compression stockings due to hemoptysis. MTDD
[2021-02-01] MEDS: LevoFLOXacin 750 MG TABLET PO SCH (10:24)
[2021-02-01] MEDS: NEBIVOLOL 5 MG TAB (BYSTOLIC) PO SCH (10:24)
[2021-02-01] MEDS: DOCUSATE SODIUM 100MG CAPSULE PO SCH ×2 (10:25→20:20)
[2021-02-01] MEDS: POTASSIUM CHLORIDE 10 MEQ SR TABLET PO SCH (10:25)
[2021-02-01] MEDS: FOLIC ACID 1 MG TAB PO SCH (10:25)
[2021-02-01] MEDS: PANTOPRAZOLE 40MG TAB (PROTONIX) PO SCH (10:25)
--- NOTE | 2021-02-01 11:42 | CCN ---
PULMONARY CRITICAL CARE NOTE DATE: 02/01/2021 SUBJECTIVE: I was called to see this 55-year-old female for hemoptysis. She presented to [facility] last evening, having coughed about a half cup of red blood. She was transferred to [facility] and this morning had a second episode of coughing about a half cup of blood. She had been diagnosed with bronchitis on an outpatient basis and treated with cephalosporin. Symptoms persisted, and on 01/30/2021, she was changed to Levaquin and fluconazole. Sputum showing gram-positives and gram-negatives at that time. Her past pulmonary history is extensive. She has underlying severe obstructive lung disease secondary to lifelong smoking, one pack per day, quite in 2018. Also in 2018, she developed non-small cell lung carcinoma, which is stage IV. She has received radiation and monoclonal antibody therapy with cardiac complications. In 2018, she developed a small pulmonary embolism in the distal branch of the left pulmonary artery and was placed on anticoagulation therapy. PAST MEDICAL HISTORY: Includes: 1. Atrial fibrillation. 2. Chronic anemia. 3. Obstructive sleep apnea syndrome. 4. Scoliosis. OBJECTIVE: At bedside, she is awake and alert. Temperature 98.5, pulse rate 95, respirations 18, blood pressure 114/65. There is a moderate amount of red blood in the bedside specimen collection container. HEENT: Her oral and nasal mucosa are pink. There is no active bleeding in the upper airway. No stridor over the trachea. No adenopathy in the neck or jugular venous distention. HEART SOUNDS: Irregularly irregular. BREATH SOUNDS: Diminished globally. Coarse on the left with large airway sounds. ABDOMEN: Soft. EXTREMITIES: Pulses times four. No significant edema. LABORATORY DATA: Extensive review was made of her past medical records of the charts and imaging studies. Currently, her CBC shows a white count of 18.7, down from 19.5 last night, hemoglobin is 9.0, down from 9.8 last evening, hematocrit is 27.5 and platelet count 319,000. Differential white cell count on admission showed 92% neutrophils and 1 band. Her electrolytes are sodium 138, potassium 4.0, chloride 98, CO2 37, BUN 19, creatinine 1.01, glucose 166. CT from admission shows no evidence of pulmonary embolism. There is a mass in the left upper lobe with volume loss, air bronchograms. The airways are quite small with patchy ground-glass opacities in the right side, some atelectasis as well. I have reviewed the radiologist report and agree with their impression. On review of microbiology studies from an outpatient basis, her sputum study did show gram-positives and gram-negatives. Culture is showing pseudomonas. ASSESSMENT: The primary problem requiring critical attention is hemoptysis. The patient, at this point, is hemodynamically stable with sub- massive amounts of blood being produced at intervals hours apart. I suspect this is related to bronchiectasis and infection with pseudomonas. She has been started on Levaquin orally and will continue with this. Based on the sensitivity, it should be effective. I would stop her aspirin and Xarelto. Anticipated half-life for the Xarelto will be two days. Will check coagulation studies in the morning. Will encourage the patient to assume the left lateral recumbent position to allow pooling of blood and facilitate hemostasis. If the bleeding continues, will consider tranexamic acid, as case reports have shown this to be effective. If the bleeding increases, then bronchoscopy may become necessary. Patient has a history of pulmonary embolism. The clot was quite small in 2018 and, given underlying malignancy and history of recurring hemoptysis, perhaps Coumadin would be a better choice. Chronic obstructive pulmonary disease: Home inhaled therapy has been restarted. Patient's condition is unstable and this point and continued close monitoring is appropriate. I will contact the hospitalist service and I have updated the nursing team of goals of care for the day. Sixty-five minutes was spent in the provision of bedside critical care and coordination, excluding any procedure time. EMELY
[2021-02-01 18:17] LABS: HEMATOCRIT 27.7 % (36.0-47.0); MEAN CORPUSCULAR HEMOGLOBIN 36.1 pg (27.0-33.0); MEAN CORPUSCULAR HGB CONC 32.5 g/dl (32.0-36.5); MEAN CORPUSCULAR VOLUME 111.2 fl (80.0-96.0); PLATELET COUNT, AUTOMATED 365 10^3/uL (150-450); RED BLOOD COUNT 2.49 10^6/uL (4.00-5.40); WHITE BLOOD COUNT 20.4 10^3/uL (4.0-10.0)
[2021-02-01] MEDS: FLUCONAZOLE 50MG TABLET PO PRN (18:20)
[2021-02-02] VITALS (9 sets, daily range): BP systolic 110–138; BP diastolic 55–83; O2SAT 97–100
[2021-02-02 05:56] LABS: HEMATOCRIT 23.1 % (36.0-47.0); HEMOGLOBIN 7.5 g/dl (12.0-15.5); MEAN CORPUSCULAR HEMOGLOBIN 35.9 pg (27.0-33.0); MEAN CORPUSCULAR HGB CONC 32.5 g/dl (32.0-36.5); MEAN CORPUSCULAR VOLUME 110.5 fl (80.0-96.0); PLATELET COUNT, AUTOMATED 277 10^3/uL (150-450); RED BLOOD COUNT 2.09 10^6/uL (4.00-5.40); WHITE BLOOD COUNT 15.9 10^3/uL (4.0-10.0)
[2021-02-02 06:07] LABS: INR 1.13; PARTIAL THROMBOPLASTIN TIME 23.4 SECONDS (24.2-38.5); PROTHROMBIN TIME 14.8 SECONDS (12.5-14.3)
[2021-02-02 06:22] LABS: CALCIUM LEVEL 8.1 MG/DL (8.5-10.1); CREATININE FOR GFR 1.04 MG/DL (0.55-1.30); GLOMERULAR FILTRATION RATE 58.6 (>51); POTASSIUM SERUM 3.9 MEQ/L (3.5-5.1)
[2021-02-02] MEDS: TIOTROPIUM INHALER/CAPSULE (SPIRIVA) INH SCH (07:53)
[2021-02-02] MEDS: SYMBICORT 160/4.5MCG INHALER 6GM INH SCH ×2 (07:54→20:00)
[2021-02-02] MEDS ORDERED: FUROSEMIDE 20MG/2ML VIAL (J1940) IV SCH (08:00)
[2021-02-02 09:18] LABS: HEMATOCRIT 26.7 % (36.0-47.0); HEMOGLOBIN 8.9 g/dl (12.0-15.5)
--- NOTE | 2021-02-02 09:43 | IPNPDOC ---
Date Seen The patient was seen on 02/02/21. Progress Note Please have community engagement leader call HYPERTYPE at [phone] for stat protective signal repairer if note is needed urgently. Hospitalist progress note has been dictated Job number [id number] VS, I&O, 24H, Fishbone Vital Signs/I&O Vital Signs Date Time Temp Pulse Resp B/P (MAP) Pulse Ox O2 Delivery O2 Flow Rate FiO2 02/02/21 08:00 97.0 83 18 136/79 (98) 98 Nasal Cannula 2.0 I&O- Last 24 Hours up to 6 AM 02/02/21 06:00 Intake Total 2020 ml Output Total 1450 ml Balance 570 ml Laboratory Data 24H LABS Laboratory Tests 2 02/01/21 17:47: Nucleated Red Blood Cells % (auto) 0.8H 02/02/21 05:35: Nucleated Red Blood Cells % (auto) 0.6H, Prothrombin Time 14.8H, Prothromb Time International Ratio 1.13, Activated Partial Thromboplast Time 23.4L, Anion Gap 4L, Glomerular Filtration Rate 58.6, Calcium Level 8.1L CBC/BMP Laboratory Tests 02/01/21 17:47 02/02/21 05:35 02/02/21 09:06 Microbiology Microbiology 01/31/21 Blood Culture - Preliminary, Resulted No growth after 24 hours . All specim... 01/31/21 Blood Culture - Preliminary, Resulted No growth after 24 hours . All specim... JEANETTE GARCIA MD Feb 02, 2021 09:43
[2021-02-02] MEDS: NEBIVOLOL 5 MG TAB (BYSTOLIC) PO SCH (09:48)
[2021-02-02] MEDS: LevoFLOXacin 750 MG TABLET PO SCH (09:48)
[2021-02-02] MEDS: PANTOPRAZOLE 40MG TAB (PROTONIX) PO SCH (09:49)
[2021-02-02] MEDS: predniSONE 10 MG TAB PO SCH (09:49)
[2021-02-02] MEDS: DOCUSATE SODIUM 100MG CAPSULE PO SCH ×2 (09:49→20:35)
[2021-02-02] MEDS: FOLIC ACID 1 MG TAB PO SCH (09:49)
[2021-02-02] MEDS: POTASSIUM CHLORIDE 10 MEQ SR TABLET PO SCH (09:49)
[2021-02-02] MEDS ORDERED: LEVALBUTEROL 1.25 MG/0.5 ML CONCENTRATE NEB INH PRN (09:50)
[2021-02-02] MEDS ORDERED: SLF 3 ML SYR IV PRN (11:00)
[2021-02-02] MEDS: LEVALBUTEROL 1.25 MG/0.5 ML CONCENTRATE NEB INH SCH ×3 (11:09→20:00)
--- NOTE | 2021-02-02 11:28 | IPN ---
PROGRESS NOTE DATE: 02/02/2021 SUBJECTIVE: The patient complained of significant hemoptysis yesterday but denied shortness of breath, chest pain, pressure, tightness, lightheadedness, dizziness or near syncope. She was evaluated by knotter Dr. Dominguez who advised continually holding the patient's Xarelto, possibly reversing with tranexamic acid of persistent hemoptysis but no bronchoscopy unless symptoms persist. No other issues per nursing overnight. She had a mild episode of hemoptysis this morning about 1 teaspoon of blood coughed out. OBJECTIVE: Vital signs: Temperature 97, pulse 83, respiratory rate 18, blood pressure 136/79, 98% on 2 liters nasal cannula. Generally no pallor or icterus or use of respiratory accessory muscles, cyanosis. HEENT: Neck is supple, full range of motion. No jugular venous distention (JVD), thyromegaly or cervical lymphadenopathy. Lungs are diminished with bilateral wheezing. Heart: S1, S2 sinus rhythm. Abdomen is soft, nontender, nondistended. Extremities: No cyanosis or clubbing. LABORATORY DATA: White count 15, hemoglobin 8.9, hematocrit 26, platelet count 277. Sodium 138, potassium 3.9, chloride 98, bicarb 36, BUN 22, creatinine 1.04, glucose of 137. ASSESSMENT AND PLAN: This is a 55-year-old female with a history of lung cancer with metastatic lesions to spine on chemotherapy, followed at the [facility] by Dr. Carter, radiation to the spine on maintenance Pemetrexed and Bevacizumab but developed cardiomyopathy, EF of 45%, presented to the Emergency Room with hemoptysis. IMPRESSION: 1. Hemoptysis/acute blood loss anemia not requiring RBCs transfusion. The patient's Xarelto and Aspirin have been held due to acute blood loss. Per Dr. Dominguez, the patient may be reversed with tranexamic acid if needed. Bronchoscopy only if persistent symptoms. The patient currently is not requiring RBC transfusion with repeat hemoglobin of 8.9 this morning. She is saturating at her baseline 96-100% on 2 liters of nasal cannula. 2. Chronic hypoxic respiratory failure secondary to chronic obstructive pulmonary disease and lung cancer. Supportive care. Currently on antibiotics as well. 3. Chronic obstructive pulmonary disease without acute exacerbation. Continued on Spiriva and Symbicort. 4. Lung CA on chemotherapy which needs to be rescheduled since she missed her course this week. 5. Chronic atrial fibrillation off anticoagulation and Aspirin due to acute blood loss anemia and hemoptysis. 6. Reflux, on PPI. 7. Obstructive sleep apnea, on CPAP. 8. DVT prophylaxis with compression stockings due to acute blood loss. DISPOSITION: At this time the patient is being monitored for repeat hemoptysis and symptomatic anemia. If persistent hemoptysis occurs, tranexamic acid infusion along with possible bronchoscopy. Defer to Pulmonary for clearance home. MTDD
[2021-02-02] MEDS: SLF 3 ML SYR IV SCH ×2 (14:00→20:36)
[2021-02-02 18:02] LABS: HEMOGLOBIN 8.7 g/dl (12.0-15.5); MEAN CORPUSCULAR HEMOGLOBIN 36.1 pg (27.0-33.0); MEAN CORPUSCULAR HGB CONC 32.2 g/dl (32.0-36.5); PLATELET COUNT, AUTOMATED 315 10^3/uL (150-450); RED BLOOD COUNT 2.41 10^6/uL (4.00-5.40); WHITE BLOOD COUNT 19.8 10^3/uL (4.0-10.0)
[2021-02-02] MEDS: MAGNESIUM OXIDE 400MG TAB (MAG-OX) PO SCH (20:35)
[2021-02-02] MEDS: diltiaZEM **CD** 180 MG CAP PO SCH (20:36)
[2021-02-02] MEDS: ACETAMINOPHEN TAB 650MG DOSE (2X325MG) PO PRN (20:41)
[2021-02-03] MEDS: LEVALBUTEROL 1.25 MG/0.5 ML CONCENTRATE NEB INH SCH ×7 (01:46→23:17)
[2021-02-03 06:02] VITALS: BP 110/65
[2021-02-03] MEDS: SLF 3 ML SYR IV SCH ×3 (06:53→22:14)
[2021-02-03] MEDS: TIOTROPIUM INHALER/CAPSULE (SPIRIVA) INH SCH (07:16)
[2021-02-03] MEDS: SYMBICORT 160/4.5MCG INHALER 6GM INH SCH ×2 (07:16→20:00)
[2021-02-03 07:17] LABS: HEMATOCRIT 24.1 % (36.0-47.0); HEMOGLOBIN 7.7 g/dl (12.0-15.5); MEAN CORPUSCULAR HEMOGLOBIN 35.6 pg (27.0-33.0); MEAN CORPUSCULAR VOLUME 111.6 fl (80.0-96.0); PLATELET COUNT, AUTOMATED 257 10^3/uL (150-450); RED BLOOD COUNT 2.16 10^6/uL (4.00-5.40); WHITE BLOOD COUNT 12.3 10^3/uL (4.0-10.0)
[2021-02-03 07:37] LABS: BLOOD UREA NITROGEN 20 MG/DL (7-18); CALCIUM LEVEL 8.3 MG/DL (8.5-10.1); CARBON DIOXIDE LEVEL 34 MEQ/L (21-32); CHLORIDE LEVEL 103 MEQ/L (98-107); CREATININE FOR GFR 0.98 MG/DL (0.55-1.30); GLOMERULAR FILTRATION RATE > 60.0 (>51); GLUCOSE, FASTING 92 MG/DL (70-100); POTASSIUM SERUM 3.6 MEQ/L (3.5-5.1); SODIUM LEVEL 142 MEQ/L (136-145)
--- NOTE | 2021-02-03 07:39 | IPNPDOC ---
Date Seen The patient was seen on 02/03/21. Progress Note Pls have community worker call hypertype at [phone] to STAT transcribe Hospitalist progress note dictated job # [id number] VS, I&O, 24H, Fishbone Vital Signs/I&O Vital Signs Date Time Temp Pulse Resp B/P (MAP) Pulse Ox O2 Delivery O2 Flow Rate FiO2 02/03/21 06:02 96.8 87 20 110/65 (80) 100 Nasal Cannula 3.0 I&O- Last 24 Hours up to 6 AM 02/03/21 06:00 Intake Total 720 ml Output Total 0 ml Balance 720 ml Laboratory Data 24H LABS Laboratory Tests 2 02/02/21 17:51: Nucleated Red Blood Cells % (auto) 0.8H 02/03/21 06:41: Nucleated Red Blood Cells % (auto) 1.0H, Anion Gap 5L, Glomerular Filtration Rate > 60.0, Calcium Level 8.3L CBC/BMP Laboratory Tests 02/02/21 09:06 02/02/21 17:51 02/03/21 06:41 Microbiology Microbiology 01/31/21 Blood Culture - Preliminary, Resulted No Growth after 48 hours. All Specime... 01/31/21 Blood Culture - Preliminary, Resulted No Growth after 48 hours. All Specime... JEANETTE GARCIA MD Feb 03, 2021 07:39
--- NOTE | 2021-02-03 08:38 | IPN ---
PROGRESS NOTE DATE: 02/03/2021 SUBJECTIVE: The patient continues to have bilateral wheezing and hemoptysis. Hemoglobin remains stable as well as vital signs, saturating 100%. OBJECTIVE: PHYSICAL EXAMINATION: VITAL SIGNS: Temperature 96.8, pulse 87, respiratory rate 20, blood pressure 110/65, 100% on 3 liters nasal cannula. GENERAL APPEARANCE: Pallor, no icterus, jaundice, respiratory distress, use of respiratory accessory muscles. HEENT: Nares has no dried blood, no tracheal deviation, no lymphadenopathy, thyromegaly or JVD. LUNGS: Diminished. Bilateral wheezing. Air entry is equal. HEART: S1, S2, sinus rhythm. No murmurs, rubs or gallops. ABDOMEN: Soft, nontender, nondistended. Positive bowel sounds x4 quadrants. EXTREMITIES: No cyanosis or clubbing. LABORATORY DATA: CBC, metabolic panel have been reviewed. ASSESSMENT: A 55-year-old female with a history of lung cancer, on chemoradiation to the spine due to metastatic lesions, presented with acute blood loss anemia and hemoptysis in the setting of chronic Xarelto and Aspirin. ACUTE ISSSUES: 1. Acute blood loss anemia. 2. Hemoptysis. 3. Stage 4 lung cancer undergoing chemotherapy, status post radiation despite metastasis. 4. History of P.E. and atrial fibrillation chronic. 5. Chronic hypoxic respiratory failure on 2-3 liters of home oxygen. 6. COPD without acute exacerbation. 7. Reflux. 8. Obstructive sleep apnea. PLAN: 1. Per Dr. Dominguez's recommendations, the patient might be reversed with tranexamic acid if persistent hemoptysis the patient's Xarelto and Aspirin have both been held. The patient is currently saturating well, 100% on 2-3 liters of oxygen which is her baseline. H&H remains low. We will repeat H&H again and transfuse if needed. Yesterday hemoglobin was 7.5 with repeat being at 8.9. Today it is 7.7. We will repeat again at 9:00 a.m. Transfuse as needed. 2. Continue with Levaquin for now for respiratory infection. 3. Bronchoscopy to be decided by Pulmonary if needed. [facility]
[2021-02-03] MEDS: predniSONE 10 MG TAB PO SCH (09:15)
[2021-02-03] MEDS: LevoFLOXacin 750 MG TABLET PO SCH (09:15)
[2021-02-03] MEDS: NEBIVOLOL 5 MG TAB (BYSTOLIC) PO SCH (09:15)
[2021-02-03] MEDS: POTASSIUM CHLORIDE 10 MEQ SR TABLET PO SCH (09:15)
[2021-02-03] MEDS: DOCUSATE SODIUM 100MG CAPSULE PO SCH ×2 (09:16→21:22)
[2021-02-03] MEDS: FOLIC ACID 1 MG TAB PO SCH (09:16)
[2021-02-03] MEDS: PANTOPRAZOLE 40MG TAB (PROTONIX) PO SCH (09:16)
[2021-02-03 09:25] LABS: HEMATOCRIT 27.6 % (36.0-47.0); HEMOGLOBIN 8.9 g/dl (12.0-15.5)
[2021-02-03] MEDS: FLUCONAZOLE 50MG TABLET PO PRN (13:54)
[2021-02-03 14:47] VITALS: BP 103/69
[2021-02-03 18:29] LABS: HEMATOCRIT 26.4 % (36.0-47.0); HEMOGLOBIN 8.4 g/dl (12.0-15.5); MEAN CORPUSCULAR HEMOGLOBIN 36.1 pg (27.0-33.0); MEAN CORPUSCULAR HGB CONC 31.8 g/dl (32.0-36.5); MEAN CORPUSCULAR VOLUME 113.3 fl (80.0-96.0); PLATELET COUNT, AUTOMATED 281 10^3/uL (150-450); RED BLOOD COUNT 2.33 10^6/uL (4.00-5.40); WHITE BLOOD COUNT 17.8 10^3/uL (4.0-10.0)
[2021-02-03 20:36] VITALS: BP 106/72
[2021-02-03] MEDS: MAGNESIUM OXIDE 400MG TAB (MAG-OX) PO SCH (21:22)
[2021-02-03] MEDS: diltiaZEM **CD** 180 MG CAP PO SCH (21:22)
[2021-02-03] MEDS: ACETAMINOPHEN TAB 650MG DOSE (2X325MG) PO PRN (21:26)
[2021-02-04] MEDS: LEVALBUTEROL 1.25 MG/0.5 ML CONCENTRATE NEB INH SCH ×5 (03:54→20:00)
[2021-02-04 05:49] VITALS: BP 101/62
[2021-02-04] MEDS: SLF 3 ML SYR IV SCH ×3 (06:41→20:48)
[2021-02-04 06:58] LABS: HEMATOCRIT 25.2 % (36.0-47.0); MEAN CORPUSCULAR HEMOGLOBIN 35.9 pg (27.0-33.0); MEAN CORPUSCULAR HGB CONC 31.7 g/dl (32.0-36.5); PLATELET COUNT, AUTOMATED 261 10^3/uL (150-450); RED BLOOD COUNT 2.23 10^6/uL (4.00-5.40); WHITE BLOOD COUNT 13.7 10^3/uL (4.0-10.0)
[2021-02-04] MEDS: TIOTROPIUM INHALER/CAPSULE (SPIRIVA) INH SCH (07:11)
[2021-02-04] MEDS: SYMBICORT 160/4.5MCG INHALER 6GM INH SCH ×2 (07:12→20:00)
[2021-02-04 07:29] LABS: CALCIUM LEVEL 8.4 MG/DL (8.5-10.1); CREATININE FOR GFR 1.02 MG/DL (0.55-1.30); GLOMERULAR FILTRATION RATE 59.9 (>51); POTASSIUM SERUM 4.1 MEQ/L (3.5-5.1)
--- NOTE | 2021-02-04 08:35 | IPNPDOC ---
Date Seen The patient was seen on 02/04/21. Progress Note Hospitalist discharge summary dictated job #[id number]. Please have the natural gas treating unit operator call PARIS Avalos PE at [phone] if summary is needed urgently for stat district manager in training VS, I&O, 24H, Fishbone Vital Signs/I&O Vital Signs Date Time Temp Pulse Resp B/P (MAP) Pulse Ox O2 Delivery O2 Flow Rate FiO2 02/04/21 05:49 97.3 81 20 101/62 (75) 99 Nasal Cannula 3.0 I&O- Last 24 Hours up to 6 AM 02/04/21 06:00 Intake Total 2400 ml Output Total 0 ml Balance 2400 ml Laboratory Data 24H LABS Laboratory Tests 2 02/03/21 18:18: Nucleated Red Blood Cells % (auto) 0.7H 02/04/21 06:48: Nucleated Red Blood Cells % (auto) 0.7H, Anion Gap 5L, Glomerular Filtration Rate 59.9, Calcium Level 8.4L CBC/BMP Laboratory Tests 02/03/21 09:12 02/03/21 18:18 02/04/21 06:48 Microbiology Microbiology 01/31/21 Blood Culture - Preliminary, Resulted No Growth after 72 hours. All specime... 01/31/21 Blood Culture - Preliminary, Resulted No Growth after 72 hours. All specime... JEANETTE GARCIA MD Feb 04, 2021 08:35
[2021-02-04] MEDS: NEBIVOLOL 5 MG TAB (BYSTOLIC) PO SCH ×2 (09:00→09:14)
[2021-02-04] MEDS: FOLIC ACID 1 MG TAB PO SCH (09:31)
[2021-02-04] MEDS: PANTOPRAZOLE 40MG TAB (PROTONIX) PO SCH (09:31)
[2021-02-04] MEDS: DOCUSATE SODIUM 100MG CAPSULE PO SCH ×2 (09:31→20:46)
[2021-02-04] MEDS: LevoFLOXacin 750 MG TABLET PO SCH (09:31)
[2021-02-04] MEDS: methylPREDNISolone 125MG 2ML VIAL IV SCH ×3 (09:43→20:48)
[2021-02-04 14:00] VITALS: BP 118/64
[2021-02-04 18:40] LABS: HEMOGLOBIN 8.7 g/dl (12.0-15.5); MEAN CORPUSCULAR HEMOGLOBIN 36.7 pg (27.0-33.0); MEAN CORPUSCULAR HGB CONC 32.2 g/dl (32.0-36.5); MEAN CORPUSCULAR VOLUME 113.9 fl (80.0-96.0); PLATELET COUNT, AUTOMATED 275 10^3/uL (150-450); RED BLOOD COUNT 2.37 10^6/uL (4.00-5.40); WHITE BLOOD COUNT 15.7 10^3/uL (4.0-10.0)
[2021-02-04] MEDS: ACETAMINOPHEN TAB 650MG DOSE (2X325MG) PO PRN (20:46)
[2021-02-04] MEDS: diltiaZEM **CD** 180 MG CAP PO SCH (20:47)
[2021-02-04] MEDS: MAGNESIUM OXIDE 400MG TAB (MAG-OX) PO SCH (20:47)
[2021-02-04 21:00] VITALS: O2SAT 97
[2021-02-04 22:00] VITALS: BP 121/82
[2021-02-05] MEDS: methylPREDNISolone 125MG 2ML VIAL IV SCH ×4 (02:47→20:28)
[2021-02-05] MEDS: SLF 3 ML SYR IV SCH ×3 (02:48→20:28)
[2021-02-05] MEDS: LEVALBUTEROL 1.25 MG/0.5 ML CONCENTRATE NEB INH SCH ×6 (04:00→20:00)
[2021-02-05 06:00] VITALS: BP 112/64
[2021-02-05 06:51] LABS: HEMATOCRIT 24.8 % (36.0-47.0); HEMOGLOBIN 8.1 g/dl (12.0-15.5); MEAN CORPUSCULAR HEMOGLOBIN 36.5 pg (27.0-33.0); MEAN CORPUSCULAR HGB CONC 32.7 g/dl (32.0-36.5); MEAN CORPUSCULAR VOLUME 111.7 fl (80.0-96.0); PLATELET COUNT, AUTOMATED 255 10^3/uL (150-450); RED BLOOD COUNT 2.22 10^6/uL (4.00-5.40); WHITE BLOOD COUNT 12.7 10^3/uL (4.0-10.0)
[2021-02-05 07:13] LABS: BLOOD UREA NITROGEN 20 MG/DL (7-18); CALCIUM LEVEL 8.6 MG/DL (8.5-10.1); CARBON DIOXIDE LEVEL 32 MEQ/L (21-32); CHLORIDE LEVEL 104 MEQ/L (98-107); CREATININE FOR GFR 0.92 MG/DL (0.55-1.30); GLOMERULAR FILTRATION RATE > 60.0 (>51); GLUCOSE, FASTING 173 MG/DL (70-100); POTASSIUM SERUM 4.3 MEQ/L (3.5-5.1); SODIUM LEVEL 140 MEQ/L (136-145)
[2021-02-05] MEDS: SYMBICORT 160/4.5MCG INHALER 6GM INH SCH ×2 (07:32→20:00)
[2021-02-05] MEDS: TIOTROPIUM INHALER/CAPSULE (SPIRIVA) INH SCH (07:32)
--- NOTE | 2021-02-05 08:42 | IPN ---
PROGRESS NOTE DATE: 02/04/2021 SUBJECTIVE: The patient continues to complain of persistent hemoptysis without fevers or chills. She continues to have cough productive of white blood-tinged sputum. White count has decreased to 13. Hemoglobin remains at 8.9, still off Aspirin and Xarelto. No complaints of pleuritic chest pain. Still on antibiotics. OBJECTIVE: PHYSICAL EXAM: VITAL SIGNS: Temperature 97.3, pulse 81, respiratory rate 20, blood pressure 101/62, 99% on 3 liters nasal cannula. GENERAL APPEARANCE: No use of respiratory accessory muscles or conversational dyspnea. Slight pallor. No icterus. HEENT: No jugular venous distention, thyromegaly, or cervical lymphadenopathy or stridor. HEART: S1, S2, sinus rhythm. No murmurs, rubs, or gallops. No carotid bruits. LUNGS: Diminished. Faint expiratory wheezing bilaterally. Crackles at the base on the right. ABDOMEN: Obese, soft, nontender, nondistended. EXTREMITIES: No cyanosis or clubbing. LABORATORY DATA: CBC, metabolic panel have been reviewed. Hemoglobin yesterday was 8.9, currently 8, hematocrit of 27, now 5. ASSESSMENT AND PLAN: This is a 55-year-old female with a history of lung cancer undergoing chemotherapy with metastatic lesions to the spine status post radiation presented with acute blood loss anemia due to hemoptysis in the setting of chronic Xarelto and Aspirin use for a history of PE and atrial fibrillation. ACUTE ISSSUES: 1. Acute blood loss anemia. Hemoglobin of 8. 2. Hemoptysis secondary to bronchiectasis and lung CA. 3. Stage IV lung CA undergoing chemotherapy, status post radiation for spine metastasis. 4. History of pulmonary embolism and chronic atrial fibrillation. 5. Chronic hypoxic respiratory failure on 2-3 liters of home oxygen. 6. COPD without acute exacerbation. 7. Reflux. 8. Obstructive sleep apnea. 9. Bronchiectasis. 10. Obstructive sleep apnea. 11. Scoliosis. PLAN: 1. The patient is still hemodynamically stable with persistent hemoptysis. It may be related to bronchiectasis per Sales Associate and possible pseudomonas infection. She is continued on oral Levaquin and still off Aspirin and Xarelto. At this point Pulmonology did not need an emergent bronchoscopy but is still being monitored. The patient is encouraged to remain in the left lateral recumbent position per Dr. Dominguez to allow for blood pooling and facilitate hemoptysis. Per Dr. Garcia, nebulizer treatments only if needed. 2. If bleeding continues, tranexamic acid potentially. Defer to Pulmonary if bronchoscopy is needed. The patient had a very small pulmonary embolism in 2018 and lung cancer unfortunately will increase her hypercoagulability and recommendation from Pulmonary is to potentially put the patient on Coumadin. She requires further monitoring due to persistent hemoptysis for now. 3. Compression stockings for DVT prophylaxis. MTDD
[2021-02-05] MEDS ORDERED: RIVAROXABAN 10 MG TAB (XARELTO) PO SCH (09:00)
[2021-02-05] MEDS ORDERED: ASPIRIN 81MG ENTERIC TABLET PO SCH (09:00)
--- NOTE | 2021-02-05 09:25 | IPNPDOC ---
Date Seen The patient was seen on 02/05/21. Progress Note pls have health unit supervisor call [employer] at [phone] to stat transcibe hospitalist progress note job # [id number] VS, I&O, 24H, Fishbone Vital Signs/I&O Vital Signs Date Time Temp Pulse Resp B/P (MAP) Pulse Ox O2 Delivery O2 Flow Rate FiO2 02/05/21 08:00 2.0 02/05/21 06:00 97.8 85 17 112/64 (80) 100 Nasal Cannula I&O- Last 24 Hours up to 6 AM 02/05/21 06:00 Intake Total 2040 ml Output Total 0 ml Balance 2040 ml Laboratory Data 24H LABS Laboratory Tests 2 02/04/21 18:30: Nucleated Red Blood Cells % (auto) 0.6H 02/05/21 06:17: Nucleated Red Blood Cells % (auto) 0.4H, Anion Gap 4L, Glomerular Filtration Rate > 60.0, Calcium Level 8.6 CBC/BMP Laboratory Tests 02/04/21 18:30 02/05/21 06:17 Microbiology Microbiology 01/31/21 Blood Culture - Preliminary, Resulted No Growth after 72 hours. All specime... 01/31/21 Blood Culture - Preliminary, Resulted No Growth after 72 hours. All specime... JEANETTE GARCIA MD Feb 05, 2021 09:25
[2021-02-05] MEDS: DOCUSATE SODIUM 100MG CAPSULE PO SCH ×2 (09:48→20:27)
[2021-02-05] MEDS: NEBIVOLOL 5 MG TAB (BYSTOLIC) PO SCH (09:48)
[2021-02-05] MEDS: FOLIC ACID 1 MG TAB PO SCH (09:49)
[2021-02-05] MEDS: LevoFLOXacin 750 MG TABLET PO SCH (09:49)
[2021-02-05] MEDS: PANTOPRAZOLE 40MG TAB (PROTONIX) PO SCH (09:49)
[2021-02-05] MEDS: FUROSEMIDE 40 MG TAB PO SCH (09:49)
--- NOTE | 2021-02-05 11:35 | IPN ---
PROGRESS NOTE DATE: 02/05/2021 SUBJECTIVE: Patient still complains of blood tinged sputum production and hemoptysis without chest pain, pressure or tightness, dizziness, near syncope. Per Dr. Loaiza private branch exchange service advisor on-call on 02/04/2021 patient should be placed on I.V. Solu-Medrol and for the Xarelto and aspirin to be held for 5 days and then resumed back. OBJECTIVE: Vital signs: Temperature 97.8, pulse 85, respiratory rate 18, blood pressure 112/64, 100% on 2 liters nasal cannula. General: Awake, alert, oriented times 3, no use of respiratory accessory muscles, able to complete full sentences. Dry mucous membranes. HEENT: Slight pallor, no icterus or jaundice. Face is symmetric. Tongue is midline. No cyanosis. Neck: No JVD, no thyromegaly. Lungs: No stridor. Diminished, faint expiratory wheezing significantly improved from yesterday. Heart: S1 and S2, sinus rhythm, no murmurs, rubs or gallops. Abdomen: Soft, nontender, nondistended. Extremities: No pitting edema. LABORATORY DATA: White count 12.7, hemoglobin 8.1, hematocrit 24, platelet count 255. Sodium 140, potassium 4.3, chloride 104, bicarb 32, BUN 20, creatinine 0.92, glucose 173. ASSESSMENT: This is a 55-year-old female with history of lung cancer undergoing chemotherapy with metastatic lesions to the bones status post radiation, bronchiectasis, COPD presented to the Emergency Room with ongoing hemoptysis taking Xarelto and aspirin due to PE and afib. Acute Issues/Plans: 1. Acute blood loss anemia secondary to ongoing hemoptysis: Per private branch exchange service advisor Dr. Loaiza no emergent need for bronchoscopy. Per Dr. Dominguez last week if persistent hemoptysis may try tranexamic acid; however, patient has been off of Xarelto for the past [address] Loaiza private branch exchange service advisor on-call. Patient may be started on I.V. Solu-Medrol and resume Xarelto after 5 days. 2. Hemoptysis secondary to bronchiectasis and lung cancer stage 4: Undergoing chemotherapy, status post radiation for spine METS. Patient is currently on I.V. Solu-Medrol for COPD and will be restarted on aspirin and Xarelto today. Monitoring for worsening hemoptysis or need of blood transfusion. 3. History of PE and chronic afib: Afib is controlled. Patient will be restarted back on aspirin and Xarelto today, monitoring for worsening hemoptysis or need for blood transfusion if patient becomes symptomatic. 4. Chronic hypoxic respiratory failure: At baseline creatinine of 2-3. 5. Acute COPD exacerbation: On Solu-Medrol, Levaquin for possible pseudomonas. 6. Reflux: On PPI. 7. JORDAN: BMI of 34.4 complicating are. 8. Bronchiectasis: On antibiotics. Limiting patient's nebulizer per Dr. Garcia' recommendation. 9. Scoliosis: Chronic. If patient has no need for bronchoscopy, stable hemoglobin and hematocrit on resumption of aspirin and Xarelto she may be discharged home if cleared by pulmonary in 2-3 days. MTDD
[2021-02-05 12:19] LABS: HEMATOCRIT 25.6 % (36.0-47.0); HEMOGLOBIN 8.5 g/dl (12.0-15.5)
[2021-02-05 14:00] VITALS: BP 114/80
[2021-02-05 18:01] LABS: HEMATOCRIT 24.8 % (36.0-47.0); MEAN CORPUSCULAR HEMOGLOBIN 35.9 pg (27.0-33.0); MEAN CORPUSCULAR HGB CONC 32.3 g/dl (32.0-36.5); MEAN CORPUSCULAR VOLUME 111.2 fl (80.0-96.0); PLATELET COUNT, AUTOMATED 263 10^3/uL (150-450); RED BLOOD COUNT 2.23 10^6/uL (4.00-5.40); WHITE BLOOD COUNT 15.1 10^3/uL (4.0-10.0)
[2021-02-05] MEDS: MAGNESIUM OXIDE 400MG TAB (MAG-OX) PO SCH (20:28)
[2021-02-05] MEDS: ACETAMINOPHEN TAB 650MG DOSE (2X325MG) PO PRN (20:28)
[2021-02-05] MEDS: diltiaZEM **CD** 180 MG CAP PO SCH (20:29)
[2021-02-05 21:00] VITALS: O2SAT 96
[2021-02-05 22:00] VITALS: BP 115/80
[2021-02-06] MEDS: methylPREDNISolone 125MG 2ML VIAL IV SCH ×4 (02:33→21:49)
[2021-02-06] MEDS: SLF 3 ML SYR IV SCH ×3 (02:33→21:49)
[2021-02-06 06:00] VITALS: BP 104/69; O2SAT 100
[2021-02-06 06:45] LABS: HEMATOCRIT 25.6 % (36.0-47.0); HEMOGLOBIN 8.1 g/dl (12.0-15.5); MEAN CORPUSCULAR HEMOGLOBIN 35.7 pg (27.0-33.0); MEAN CORPUSCULAR HGB CONC 31.6 g/dl (32.0-36.5); MEAN CORPUSCULAR VOLUME 112.8 fl (80.0-96.0); PLATELET COUNT, AUTOMATED 255 10^3/uL (150-450); RED BLOOD COUNT 2.27 10^6/uL (4.00-5.40); WHITE BLOOD COUNT 14.1 10^3/uL (4.0-10.0)
[2021-02-06 07:11] LABS: CALCIUM LEVEL 8.2 MG/DL (8.5-10.1); CREATININE FOR GFR 1.18 MG/DL (0.55-1.30); GLOMERULAR FILTRATION RATE 50.6 (>51); POTASSIUM SERUM 3.7 MEQ/L (3.5-5.1)
[2021-02-06] MEDS: TIOTROPIUM INHALER/CAPSULE (SPIRIVA) INH SCH (07:25)
[2021-02-06] MEDS: LEVALBUTEROL 1.25 MG/0.5 ML CONCENTRATE NEB INH SCH ×2 (07:25→11:21)
[2021-02-06] MEDS: SYMBICORT 160/4.5MCG INHALER 6GM INH SCH (07:26)
[2021-02-06] MEDS: NEBIVOLOL 5 MG TAB (BYSTOLIC) PO SCH (09:54)
[2021-02-06] MEDS: DOCUSATE SODIUM 100MG CAPSULE PO SCH ×2 (09:54→21:48)
[2021-02-06] MEDS: LevoFLOXacin 750 MG TABLET PO SCH (09:54)
[2021-02-06] MEDS: PANTOPRAZOLE 40MG TAB (PROTONIX) PO SCH (09:54)
[2021-02-06] MEDS: FUROSEMIDE 40 MG TAB PO SCH (09:54)
[2021-02-06] MEDS: FOLIC ACID 1 MG TAB PO SCH (09:54)
--- NOTE | 2021-02-06 10:59 | IPN ---
PROGRESS NOTE DATE: 02/06/2021 SUBJECTIVE: I attended Chantale Hurst on the Med/Surg floor. Patient was examined and chart reviewed. I reviewed her medication list. T-max overnight 97.9, blood pressure is 104 to 115 systolic, heart rate generally in the 80s, respiratory rate 16-18 without accessory muscle use. She had some blood-tinged sputum again the last 24 hours. Review of her record reveals that she had been started on her Xarelto and aspirin. I reviewed all of her available scans. Most recent laboratory studies showed a white blood cell count of 14.1, hemoglobin 8.1 which is stable, platelet count of 255,000, no differential obtained. Sodium 140, potassium 3.7, chloride 101, CO2 36, BUN 24, creatinine 1.18. OBJECTIVE: GENERAL: She is awake, alert and appropriate. HEENT: Pupils reactive, sclera clear. Trachea is midline. CHEST: Bilateral rhonchi that do not clear completely with cough. She has got some egophony at the left apex. She does have some borderline bronchial sounds in the right mid lung zone. No other focal adventitious breath sounds were identified. CARDIAC: Distant but regular. Peripheral pulses palpable, no edema. ABDOMEN: Obese, soft, nontender with active bowel sounds. No obvious organomegaly or masses. EXTREMITIES: No cyanosis or clubbing. NEUROLOGIC: She is awake, alert and appropriate. PSYCH: Normal mood and affect. IMPRESSION: 1. Hemoptysis, recurrent. 2. Infections with pseudomonas. 3. History of lung cancer. 4. Previous PE in 2018. At this point, will cut her steroids in half. She is to continue antimicrobials. I would hold on her anticoagulation at this point. Certainly, at some point consideration could be given for restarting especially in view of her cancer history but for now we can proceed as outlined above. If her hemoptysis persists, then certainly consideration for bronchoscopy could be entertained and again this is another reason to hold her anticoagulation. I am not as worried about her aspirin and certainly if there are other factors that necessitate restarting it I have much less issue with aspirin than I do with the Xarelto. Further recommendations will be made in the progress record as new information becomes available.
[2021-02-06 14:00] VITALS: BP 114/58
[2021-02-06 18:38] LABS: HEMATOCRIT 25.9 % (36.0-47.0); HEMOGLOBIN 8.6 g/dl (12.0-15.5); MEAN CORPUSCULAR HEMOGLOBIN 36.8 pg (27.0-33.0); MEAN CORPUSCULAR HGB CONC 33.2 g/dl (32.0-36.5); MEAN CORPUSCULAR VOLUME 110.7 fl (80.0-96.0); PLATELET COUNT, AUTOMATED 266 10^3/uL (150-450); RED BLOOD COUNT 2.34 10^6/uL (4.00-5.40); WHITE BLOOD COUNT 15.6 10^3/uL (4.0-10.0)
--- NOTE | 2021-02-06 18:47 | IPNPDOC ---
Subjective Date Seen The patient was seen on 02/06/21. Subjective Chief Complaint/HPI Patient complains of right ant chest discomfort and right shoulder blade discomfort. She also complains of right lower abdomen pain. She reports that she had heard a pop int eh right lower quadrant several days ago during a coughing fit. She continues to have small amounts of hemoptysis with severe coughing bouts but not all the time. She reports that her coughing bouts have decreased once the bleeding started. Objective Physical Examination General Exam: Positive: Alert, Cooperative, No Acute Distress Eye Exam: Positive: PERRLA, Conjunctiva & lids normal, EOMI; Negative: Sclera icteric Neck Exam: Positive: Supple; Negative: JVD, thyromegaly Chest Exam: Positive: Rhonchi, Wheezing, Other (bronchial breath sounds in janell left upper lobe and right anteriorly. Eogophony at the left upper lobe) Heart Exam: Positive: Rate Normal, Regular Rhythm, Normal S1, Normal S2; Negative: Murmurs, Rubs Abdomen Exam: Positive: Normal bowel sounds, Soft, Tenderness (right lower quadrant); Negative: Hepatospenomegaly Extremity Exam: Negative: Clubbing, Cyanosis, Edema Assessment /Plan Assessment This is a 55-year-old female with history of left upper lobe lung cancer diagnosed in 2018 with mets to bone s/p radiation, undergoing chemotherapy { last in the beginning of january} , PE in 2018, COVID infection in Nov , bronchiectasis, COPD, Afib presented to the Emergency Room with ongoing hemoptysis taking Xarelto and aspirin. Hemoptysis decreasing likely due to bronchiectasis and pneumonia and stage 4 lung cancer in the back ground of being on xarelto will continue to hold Xarelto and ASA. Continue methyl pred, cough suppressants. Per Dr. Loaiza no emergent need for bronchoscopy. Pseudomonas pneumonia right middle and right lower lobe and likely in the left upper lobe at [facility] site of the cancer continue levofloxacin. COPD exacerbation continue methyl pred, levofloxacin nebs and inhalers held as they are triggering her cough. History of small PE in 2018 Chronic afib: Afib is controlled will continue to hold xarelto Chronic hypoxic respiratory failure continue oxygen Reflux: On PPI. JORDAN: BMI of 34.4 complicating are. Scoliosis: Chronic. has Gonzalez chu. T8 compression Plan/VTE VTE Prophylaxis Ordered?: Yes VS, I&O, 24H, Fishbonmirella Vital Signs/I&O Vital Signs Date Time Temp Pulse Resp B/P (MAP) Pulse Ox O2 Delivery O2 Flow Rate FiO2 02/06/21 14:00 98.7 87 18 114/58 (76) 100 Nasal Cannula 2.0 I&O- Last 24 Hours up to 6 AM 02/06/21 06:00 Intake Total 1020 ml Output Total 0 ml Balance 1020 ml Laboratory Data 24H LABS Laboratory Tests 2 02/06/21 06:17: Nucleated Red Blood Cells % (auto) 0.4H, Anion Gap 3L, Glomerular Filtration Rate 50.6L, Calcium Level 8.2L CBC/BMP Laboratory Tests 02/06/21 06:17 Microbiology Microbiology 01/31/21 Blood Culture - Final, Complete NO GROWTH AFTER 5 DAYS 01/31/21 Blood Culture - Final, Complete NO GROWTH AFTER 5 DAYS CAROLYNE WALTON MD Feb 06, 2021 18:47
[2021-02-06 21:00] VITALS: O2SAT 98
[2021-02-06] MEDS: diltiaZEM **CD** 180 MG CAP PO SCH (21:48)
[2021-02-06] MEDS: MAGNESIUM OXIDE 400MG TAB (MAG-OX) PO SCH (21:48)
[2021-02-06] MEDS: ACETAMINOPHEN TAB 650MG DOSE (2X325MG) PO PRN (21:48)
[2021-02-06 22:00] VITALS: BP 114/60
[2021-02-07] MEDS ORDERED: methylPREDNISolone 40MG 1ML VIAL As Ordered ONE (02:04)
[2021-02-07] MEDS: methylPREDNISolone 125MG 2ML VIAL IV SCH ×4 (03:00→21:42)
[2021-02-07] MEDS: SLF 3 ML SYR IV SCH ×3 (03:07→21:45)
[2021-02-07 06:00] VITALS: BP 110/70
[2021-02-07 06:13] LABS: HEMATOCRIT 24.4 % (36.0-47.0); MEAN CORPUSCULAR HEMOGLOBIN 36.4 pg (27.0-33.0); MEAN CORPUSCULAR HGB CONC 32.8 g/dl (32.0-36.5); MEAN CORPUSCULAR VOLUME 110.9 fl (80.0-96.0); PLATELET COUNT, AUTOMATED 236 10^3/uL (150-450); WHITE BLOOD COUNT 13.3 10^3/uL (4.0-10.0)
[2021-02-07 06:40] LABS: CREATININE FOR GFR 1.12 MG/DL (0.55-1.30); GLOMERULAR FILTRATION RATE 53.8 (>51); POTASSIUM SERUM 3.2 MEQ/L (3.5-5.1)
[2021-02-07] MEDS ORDERED: POTASSIUM CHLORIDE 10 MEQ SR TABLET PO ONE (07:15)
[2021-02-07] MEDS: PANTOPRAZOLE 40MG TAB (PROTONIX) PO SCH (08:04)
[2021-02-07] MEDS: FOLIC ACID 1 MG TAB PO SCH (08:04)
[2021-02-07] MEDS: NEBIVOLOL 5 MG TAB (BYSTOLIC) PO SCH (08:04)
[2021-02-07] MEDS: DOCUSATE SODIUM 100MG CAPSULE PO SCH ×2 (08:04→21:46)
[2021-02-07] MEDS: FUROSEMIDE 40 MG TAB PO SCH (08:04)
[2021-02-07 09:00] VITALS: O2SAT 100
[2021-02-07] MEDS ORDERED: predniSONE 10 MG TAB PO SCH (09:00)
[2021-02-07] MEDS: LevoFLOXacin 750 MG TABLET PO SCH (10:05)
--- NOTE | 2021-02-07 11:09 | REP ---
INDICATION: pain. ? mets. COMPARISON: PA and lateral chest dated 04/04/2020. TECHNIQUE: There are two views. FINDINGS: Mineralization is normal. There are no lytic, blastic or destructive changes. The acromioclavicular and glenohumeral articulations are unremarkable. There are no calcifications. A right IJ [id number] is incidentally identified. Thoracic spine stabilization rods are incidentally noted. IMPRESSION: No evidence of skeletal metastatic disease. Otherwise, negative right scapula. <Electronically signed by Jason Jenkins > 02/07/21 110
--- NOTE | 2021-02-07 11:20 | REP ---
INDICATION: right back of chest pain at shouler blade ? mets COMPARISON: None. TECHNIQUE: Frontal view of the chest with multiple views of the hemithorax. FINDINGS: Frontal view of the chest demonstrates moderate right pleural effusion along with left upper lobe opacity/mass. Multiple views of the right hemithorax demonstrates no acute rib fracture/injury. IMPRESSION: Moderate right pleural effusion. No obvious acute right rib fracture. <Electronically signed by Timmy Jain > 02/07/21 1113
[2021-02-07 14:00] VITALS: BP 112/71
[2021-02-07 18:29] LABS: HEMATOCRIT 25.6 % (36.0-47.0); HEMOGLOBIN 8.5 g/dl (12.0-15.5); MEAN CORPUSCULAR HGB CONC 33.2 g/dl (32.0-36.5); MEAN CORPUSCULAR VOLUME 111.3 fl (80.0-96.0); PLATELET COUNT, AUTOMATED 254 10^3/uL (150-450); WHITE BLOOD COUNT 15.9 10^3/uL (4.0-10.0)
--- NOTE | 2021-02-07 20:51 | IPNPDOC ---
Subjective Date Seen The patient was seen on 02/07/21. Subjective Chief Complaint/HPI Continues to have discomfort in the right shoulder blade, right rib xray adn right scapular xray negative for any metastatic lesion However xray showed new small right pleural effusion. She had 1 bout of hemoptysis today, no clots noted. Objective Physical Examination General Exam: Positive: Alert, Cooperative, No Acute Distress Eye Exam: Positive: PERRLA, Conjunctiva & lids normal, EOMI; Negative: Sclera icteric Neck Exam: Positive: Supple; Negative: JVD, thyromegaly Chest Exam: Positive: Rhonchi, Wheezing, Other (bronchial breath sounds in the left upper lobe back of chest. Eogophony at the left upper back.) Heart Exam: Positive: Rate Normal, Regular Rhythm, Normal S1, Normal S2; Negative: Murmurs, Rubs Abdomen Exam: Positive: Normal bowel sounds, Soft, Tenderness (right lower quadrant); Negative: Hepatospenomegaly Extremity Exam: Negative: Clubbing, Cyanosis, Edema Assessment /Plan Assessment This is a 55-year-old female with history of left upper lobe lung cancer diagnosed in 2018 with mets to bone s/p radiation, undergoing chemotherapy { last in the beginning of january} , PE in 2018, COVID infection in Nov , bronchiectasis, COPD, Afib presented to the Emergency Room with ongoing hemoptysis taking Xarelto and aspirin. Hemoptysis decreasing likely due to bronchiectasis and pneumonia and stage 4 lung cancer in the back ground of being on xarelto will continue to hold Xarelto and ASA. Continue methyl pred, cough suppressants. Per Dr. Loaiza no emergent need for bronchoscopy. Pseudomonas pneumonia right middle and right lower lobe and likely in the left upper lobe at the site of the cancer continue levofloxacin. Right sided effusion new. This could be causing her discomfort in the shoulder blade. Chronic Anemia due chronic disease. May be slightly worse at this time likely due to blood draws and hemoptysis. COPD exacerbation continue methyl pred, levofloxacin nebs and inhalers held as they are triggering her cough. steroid dose reduced. Left upper lobe lung cancer diagnosed in 2018 with mets to bone s/p radiation, undergoing chemotherapy History of small PE in 2018 diagnosed at the time of cancer diagnosis Chronic afib: Afib is controlled will continue to hold xarelto Chronic hypoxic respiratory failure continue oxygen Reflux: On PPI. JORDAN: BMI of 34.4 complicating are. COVID in november Scoliosis: Chronic. has Gonzalez chu. T8 chronic compression Plan/VTE VTE Prophylaxis Ordered?: Yes VS, I&O, 24H, Fishbone Vital Signs/I&O Vital Signs Date Time Temp Pulse Resp B/P (MAP) Pulse Ox O2 Delivery O2 Flow Rate FiO2 02/07/21 14:00 97.6 90 18 112/71 (85) 100 Nasal Cannula 2.0 I&O- Last 24 Hours up to 6 AM 02/07/21 07:00 Intake Total 1600 ml Balance 1600 ml Laboratory Data 24H LABS Laboratory Tests 2 02/07/21 05:42: Nucleated Red Blood Cells % (auto) 0.4H 02/07/21 05:43: Anion Gap 3L, Glomerular Filtration Rate 53.8, Calcium Level 8.0L 02/07/21 18:16: Nucleated Red Blood Cells % (auto) 0.7H CBC/BMP Laboratory Tests 02/07/21 05:42 02/07/21 05:43 02/07/21 18:16 Microbiology Microbiology 01/31/21 Blood Culture - Final, Complete NO GROWTH AFTER 5 DAYS 01/31/21 Blood Culture - Final, Complete NO GROWTH AFTER 5 DAYS CAROLYNE WALTON MD Feb 07, 2021 20:51
[2021-02-07] MEDS: diltiaZEM **CD** 180 MG CAP PO SCH (21:44)
[2021-02-07] MEDS: MAGNESIUM OXIDE 400MG TAB (MAG-OX) PO SCH (21:45)
[2021-02-07 22:00] VITALS: BP 113/73
[2021-02-08] MEDS: methylPREDNISolone 125MG 2ML VIAL IV SCH ×2 (02:39→08:14)
[2021-02-08] MEDS: SLF 3 ML SYR IV SCH ×3 (05:11→22:39)
[2021-02-08 05:33] VITALS: BP 113/75
[2021-02-08 08:00] LABS: HEMATOCRIT 27.1 % (36.0-47.0); HEMOGLOBIN 8.7 g/dl (12.0-15.5); MEAN CORPUSCULAR HEMOGLOBIN 36.4 pg (27.0-33.0); MEAN CORPUSCULAR HGB CONC 32.1 g/dl (32.0-36.5); MEAN CORPUSCULAR VOLUME 113.4 fl (80.0-96.0); PLATELET COUNT, AUTOMATED 249 10^3/uL (150-450); RED BLOOD COUNT 2.39 10^6/uL (4.00-5.40)
[2021-02-08] MEDS: DOCUSATE SODIUM 100MG CAPSULE PO SCH ×2 (08:14→22:37)
[2021-02-08] MEDS: FOLIC ACID 1 MG TAB PO SCH (08:14)
[2021-02-08] MEDS: FUROSEMIDE 40 MG TAB PO SCH (08:14)
[2021-02-08] MEDS: PANTOPRAZOLE 40MG TAB (PROTONIX) PO SCH (08:14)
[2021-02-08] MEDS: LevoFLOXacin 750 MG TABLET PO SCH (08:15)
[2021-02-08] MEDS: NEBIVOLOL 5 MG TAB (BYSTOLIC) PO SCH (08:15)
[2021-02-08 08:39] LABS: WHITE BLOOD COUNT 15.1 10^3/uL (4.0-10.0)
[2021-02-08] MEDS ORDERED: ISOVUE-370 76% 100ML VIAL As Ordered ONE (10:10)
[2021-02-08 10:33] LABS: LYMPHOCYTES 8 % (16-44); MONOCYTES 3 % (0-5); NEUTROPHILS 89 % (28-66); PLATELET ESTIMATE NORMAL (NORMAL)
--- NOTE | 2021-02-08 10:33 | IPN ---
PROGRESS NOTE DATE: 02/08/2021 SUBJECTIVE: I visited Chantale Hurst here on 5 Gregory. Patient was examined and chart reviewed. I had a long conversation with her as well as Dr. Douglas regarding her status. She again had significant hemoptysis last night for about 1/2 hour and several clots through the night. She is having intermittent right sided chest discomfort. T-max overnight 98.2, blood pressure generally in the 1'teens, heart rate in the 80s with a sinus mechanism, respiratory 16 to 18 without accessory muscle use. She remains on 2 liters nasal cannula. Most recent laboratories were yesterday. As far as her chemistries go; white blood cell count 15.1, hemoglobin 8.7, platelet count 249,000. No differential today. She had rib and scapula x-rays which were unremarkable. OBJECTIVE: On exam, she is awake, alert and appropriate, pupils react, sclera is clear. Trachea is midline. Chest does show diminished breath sound intensity on the left. Right chest is fairly clear. There are rare rhonchi that do clear with cough. Cardiac exam is regular without gallop. Peripheral pulses palpable, no edema. Abdomen is obese, soft, nontender, active bowel sounds, no organomegaly or mass. Extremities: No cyanosis or clubbing. Neurologic: She is awake and appropriate. Psych: Normal mood and affect. Films are reviewed. CT is pending. IMPRESSION: 1. Hemoptysis, recurrent. 2. Pseudomonas pneumonia versus bronchitis. 3. Previous lung cancer status post treatment. 4. Previous pulmonary embolism in 2018. 5. Prior outpatient anticoagulation. At this point she remains on steroids. I will continue those for now. She is still having intermittent discomfort although it is not pleuritic in nature. We will repeat her CT with and without IV contrast in view her continued hemoptysis. Certainly, she may warrant fiberoptic bronchoscopy in view of this. I did add humidification to her oxygen as intermittently her voice is hoarse and I wonder if this may be contributed from an upper source as well but certainly in view of her prior history further investigation is clearly warranted. I had a long discussion with her in that regard and she is in full agreement. We await the outcome of the above interventions. For now, we will continue her antimicrobials and her steroids and hold her anticoagulation. Further recommendations will be made in the progress record as new information becomes available.
[2021-02-08 10:34] LABS: ANISOCYTOSIS 3+; POLYCHROMASIA 1+
--- NOTE | 2021-02-08 10:56 | IPNPDOC ---
Subjective Date Seen The patient was seen on 02/08/21. Subjective Chief Complaint/HPI Again had hemoptysis for 30 mins last evening and then clots off and on through out the night. Objective Physical Examination General Exam: Positive: Alert, Cooperative, No Acute Distress Eye Exam: Positive: PERRLA, Conjunctiva & lids normal, EOMI; Negative: Sclera icteric Neck Exam: Positive: Supple; Negative: JVD, thyromegaly Chest Exam: Positive: Rhonchi, Wheezing, Other (bronchial breath sounds in the left upper lobe back of chest. Eogophony at the left upper back.) Heart Exam: Positive: Rate Normal, Regular Rhythm, Normal S1, Normal S2; Negative: Murmurs, Rubs Abdomen Exam: Positive: Normal bowel sounds, Soft, Tenderness (right lower quadrant); Negative: Hepatospenomegaly Extremity Exam: Negative: Clubbing, Cyanosis, Edema Assessment /Plan Assessment This is a 55-year-old female with history of left upper lobe lung cancer diagnosed in 2018 with mets to bone s/p radiation, undergoing chemotherapy { last in the beginning of january} , PE in 2017, COVID infection in Nov , bronchiectasis, COPD, Afib presented to the Emergency Room with ongoing hemoptysis taking Xarelto and aspirin. Hemoptysis had some increased hemoptysis yesterday even and through out night. likely due to bronchiectasis and pneumonia and stage 4 lung cancer in the back ground of being on xarelto will continue to hold Xarelto and ASA. Continue methyl pred, cough suppressants, levofloxacin. Right rib xray adn right scapular xray unremarkable except for small right effusion. ordered for New CT chest Pseudomonas pneumonia right middle and right lower lobe and likely in the left upper lobe at the site of the cancer continue levofloxacin. Right sided effusion new. This could be causing her discomfort in the shoulder blade. Chronic Anemia due chronic disease. May be slightly worse at this time likely due to blood draws and hemoptysis. COPD exacerbation continue methyl pred, levofloxacin nebs and inhalers held as they are triggering her cough. steroid dose reduced. Left upper lobe lung cancer diagnosed in 2018 with mets to bone s/p radiation, undergoing chemotherapy History of small PE in 2018 diagnosed at the time of cancer diagnosis Chronic afib: rate controlled will continue to hold xarelto Chronic hypoxic respiratory failure continue oxygen Reflux: On PPI. JORDAN: BMI of 34.4 complicating are. COVID in november Scoliosis: Chronic. has Gonzalez chu. T8 chronic compression Plan/VTE VTE Prophylaxis Ordered?: Yes VS, I&O, 24H, Fishbone Vital Signs/I&O Vital Signs Date Time Temp Pulse Resp B/P (MAP) Pulse Ox O2 Delivery O2 Flow Rate FiO2 02/08/21 09:00 2.0 02/08/21 08:15 83 113/75 02/08/21 05:33 98.2 18 100 Nasal Cannula I&O- Last 24 Hours up to 6 AM 02/08/21 06:00 Intake Total 1680 ml Balance 1680 ml Laboratory Data 24H LABS Laboratory Tests 2 02/07/21 18:16: Nucleated Red Blood Cells % (auto) 0.7H 02/08/21 07:26: Nucleated Red Blood Cells % (auto) 0.7H, Immature Granulocyte % (Auto) , Neutrophils (%) (Auto) , Neutrophils 89H, Lymphocytes (Manual) 8L, Monocytes (Manual) 3, Polychromasia 1+, Anisocytosis 3+, Macrocytosis 3+, Platelet Estimate NORMAL CBC/BMP Laboratory Tests 02/07/21 18:16 02/08/21 07:26 Microbiology Microbiology 01/31/21 Blood Culture - Final, Complete NO GROWTH AFTER 5 DAYS 01/31/21 Blood Culture - Final, Complete NO GROWTH AFTER 5 DAYS CAROLYNE WALTON MD Feb 08, 2021 10:56
--- NOTE | 2021-02-08 11:18 | REP ---
INDICATION: Hemoptysis. COMPARISON: Chest CT with IV contrast dated 01/31/2021. TECHNIQUE: Chest CT without IV contrast followed by chest CT with IV contrast. FINDINGS: There is collapse of the left upper lobe as previously. There are no enhancing masses within the collapsed left upper lobe. This is unchanged. No nodules or masses are seen in the remainder of the left lung or in the right lung. There are no infiltrates or effusions. There is no mediastinal or right hilar lymph node enlargement. The left hilus is obscured by the collapsed left upper lobe. There is no axillary lymphadenopathy. The thoracic aorta is unremarkable. Cardiac size is enlarged, unchanged. There is a small pericardial effusion versus pericardial thickening anteriorly inferiorly. Upper abdomen: There is no adrenal nodule or mass. The visualized areas of the liver, gallbladder, pancreas and spleen are unremarkable except for splenic calcified granulomas. There is no adrenal nodule or mass. There is a Bosniak type 1 cyst in the upper pole the right kidney approximately 1 cm in diameter. There is grade 3 wedge-shaped compression deformity of a midthoracic vertebral body with gibbus and thoracic spine stabilization rods. This is unchanged. IMPRESSION: No significant interval change. Chronically collapsed left upper lobe. No nodules or masses. No infiltrates or effusions. No adenopathy. Small pericardial effusion versus pericardial thickening anteriorly/inferiorly. Thoracic spine stabilization rods, wedge shaped compression deformity of a midthoracic vertebral body with gibbus, unchanged. Small focal pericardial effusion versus pericardial thickening anteriorly inferiorly. <Electronically signed by Jason Jenkins > 02/08/21 [id number]
[2021-02-08 14:00] VITALS: BP 113/76
[2021-02-08] MEDS: methylPREDNISolone 40MG 1ML VIAL IV SCH ×2 (14:34→22:38)
[2021-02-08 20:47] VITALS: BP 115/75
[2021-02-08 21:00] VITALS: O2SAT 100
[2021-02-08] MEDS: MAGNESIUM OXIDE 400MG TAB (MAG-OX) PO SCH (22:38)
[2021-02-08] MEDS: diltiaZEM **CD** 180 MG CAP PO SCH (22:39)
[2021-02-09] MEDS: methylPREDNISolone 40MG 1ML VIAL IV SCH ×2 (03:44→10:04)
[2021-02-09 05:29] VITALS: BP 109/70
[2021-02-09] MEDS: SLF 3 ML SYR IV SCH ×3 (05:29→20:24)
[2021-02-09 09:00] VITALS: O2SAT 99
[2021-02-09] MEDS: FOLIC ACID 1 MG TAB PO SCH (10:03)
[2021-02-09] MEDS: DOCUSATE SODIUM 100MG CAPSULE PO SCH ×2 (10:03→20:24)
[2021-02-09] MEDS: LevoFLOXacin 750 MG TABLET PO SCH (10:03)
[2021-02-09] MEDS: PANTOPRAZOLE 40MG TAB (PROTONIX) PO SCH (10:03)
[2021-02-09] MEDS: NEBIVOLOL 5 MG TAB (BYSTOLIC) PO SCH (10:04)
[2021-02-09] MEDS: FUROSEMIDE 40 MG TAB PO SCH (10:04)
[2021-02-09] MEDS ORDERED: POTASSIUM CHLORIDE 10% LIQ 20 MEQ/15 ML UDC PO ONE (10:55)
--- NOTE | 2021-02-09 11:04 | IPNPDOC ---
Subjective Date Seen The patient was seen on 02/09/21. Subjective Chief Complaint/HPI Continues to have hemoptysis several times a day sometimes with clots with bright red blood. No fever or chills. Oxygen requirement at baseline. Objective Physical Examination General Exam: Positive: Alert, Cooperative, No Acute Distress Eye Exam: Positive: PERRLA, Conjunctiva & lids normal, EOMI; Negative: Sclera icteric Neck Exam: Positive: Supple; Negative: JVD, thyromegaly Chest Exam: Positive: Clear to auscultation, Other (bronchial breath sounds in the left upper lobe back of chest. Eogophony at the left upper back.) Heart Exam: Positive: Rate Normal, Regular Rhythm, Normal S1, Normal S2; Negative: Murmurs, Rubs Abdomen Exam: Positive: Normal bowel sounds, Soft, Tenderness (right lower quadrant); Negative: Hepatospenomegaly Extremity Exam: Negative: Clubbing, Cyanosis, Edema Assessment /Plan Assessment This is a 55-year-old female with history of left upper lobe lung cancer diagnosed in 2018 with mets to bone s/p radiation, undergoing chemotherapy { last in the beginning of january} , PE in 2017, COVID infection in Nov , bronchiectasis, COPD, Afib presented to the Emergency Room with ongoing hemoptysis taking Xarelto and aspirin. Hemoptysis continues to have bouts of coughing with hemoptysis 4 to5 times a day. likely due to bronchiectasis and pneumonia and stage 4 lung cancer in the back ground of being on xarelto will stop Xarelto Continue cough suppressants, levofloxacin. Right rib xray and right scapular xray unremarkable CT chest on 02/08/21 looks slightly better than before . There is very significant disease onthe left as before, Right is clean. .Right side infiltrates have cleared. No effusion. Pseudomonas pneumonia right middle and right lower lobe and likely in the left upper lobe at the site of the cancer continue levofloxacin. Chronic Anemia stable due chronic disease. May be slightly worse at this time likely due to blood draws and hemoptysis. COPD exacerbation resolved. methyl pred stopped. nebs and inhalers held as they are triggering her cough. Left upper lobe lung cancer diagnosed in 2018 with mets to bone s/p radiation, undergoing chemotherapy History of small PE in 2018 diagnosed at the time of cancer diagnosis will check bilateral legs for DVt. Chronic afib: rate controlled xarelto stopped due to hemoptysis Chronic hypoxic respiratory failure continue oxygen Reflux: On PPI. JORDAN: BMI of 34.4 complicating are. COVID in november Scoliosis: Chronic. has Gonzalez chu. T8 chronic compression Plan/VTE VTE Prophylaxis Ordered?: Yes VS, I&O, 24H, Fishbone Vital Signs/I&O Vital Signs Date Time Temp Pulse Resp B/P (MAP) Pulse Ox O2 Delivery O2 Flow Rate FiO2 02/09/21 10:04 102 110/73 02/09/21 09:00 2.0 02/09/21 09:00 99 Nasal Cannula 02/09/21 05:29 98.3 18 I&O- Last 24 Hours up to 6 AM 02/09/21 06:00 Intake Total 1500 ml Balance 1500 ml Laboratory Data Microbiology Microbiology 01/31/21 Blood Culture - Final, Complete NO GROWTH AFTER 5 DAYS 01/31/21 Blood Culture - Final, Complete NO GROWTH AFTER 5 DAYS CAROLYNE WALTON MD Feb 09, 2021 11:04
--- NOTE | 2021-02-09 11:50 | IPN ---
PROGRESS NOTE DATE: 02/09/2021 SUBJECTIVE: I saw Chantale in consultation this morning for hemoptysis. Chantale continues to have blood-streaked sputum, currently approximately a couple of quarter-sized amounts of blood every few hours. She feels less congested. She feels that her breathing is slightly improved. She has not been using nebulized therapy. She has had no le edema, calf pain. She does have a subscapular discomfort. X-rays were performed of this area. This is however on the right and she remains on IV Solu-Medrol. Discontinue this due to the potential of increasing friability of the airway. We had a long discussion regarding if she continues to have hemoptysis that we should consider bronchoscopy. I still suspect the hemoptysis may be secondary to a combination of her being on anticoagulation in the face of infection. The patient is now ten days on antibiotics. The infection seems to be improving. She is having less mucus production. She is feeling less congested. I am hopeful that her hemoptysis improves. OBJECTIVE: Vital signs: Temperature is 98.3, pulse is 84, respiratory rate is 18, blood pressure is 109/70 with an oxygen saturation of 100% on 2 liters. General: Awake, alert and oriented. Affect and mood appropriate. HEENT: Dentition hygiene good. Nasal mucosa pink and moist without lesions. Oropharynx is crowded. Mallampati IV. Neck is supple. No tracheal deviation or mass. Lymph: No cervical, supraclavicular, or axillary adenopathy. Cardiac: Distant S1, S2 without audible murmur, rub, or gallop. No elevated JVP. No systemic edema. Pulmonary: Decreased breath sounds on the left but there is some air entry in the left base. There is excellent air entry on the right. I do not auscultate any rhonchi that I auscultated before. There currently is no expiratory wheeze. There is increased tactile fremitus on the left. No dullness to percussion. Abdomen: Obese, soft, nontender, nondistended, no hepatosplenomegaly. No masses or hernia. Extremities: No cyanosis, clubbing, or edema. Negative Homans' sign. Laboratory evaluation shows white blood cell count of 15.1 which is slightly elevated but the patient was started on steroids. Hemoglobin 8.7. Platelet count of 249. Neutrophilia of 89. Sodium is 138, potassium 3.2, chloride is 98, bicarb 37, BUN 27, creatinine 1.12. Fasting glucose of 186. Chest CT was reviewed which shows extensive consolidation of the left upper lobe, better air entry I think in the left lower lobe. The right lung appears without infiltrate or mass or lesion. There are Gonzalez rods in the back. There is a small pericardial effusion. ASSESSMENT AND PLAN: 1. Hemoptysis. We will continue to monitor. If she continues to have hemoptysis despite being off Xarelto and having over a ten-day course of antibiotics, I will consider bronchoscopy. We discussed the risks of bronchoscopy with the patient today. Her is coming in this afternoon and I plan on having a second discussion with them in regards to the risks and benefits of doing the procedure. One of the benefits of doing the procedure is isolating a location of bleeding. Also would be to monitor for recurrence of malignancy. If there is a site of bleeding, we could consider embolization by IR. My overall impression is that this was precipitated by an infection with pseudomonas with inflammation and in the face of anticoagulation. 2. History of pulmonary embolism. This was over two years ago, was a peripheral pulmonary embolism. The patient has been on anticoagulation since that time. Even though it is unlikely she has lower extremity clot burden, now that she is off anticoagulation we will perform lower extremity Dopplers. If there is no evidence of clot burden, at this point in time would simply stop her anticoagulation and monitor. Her risk of bleeding and hemoptysis is higher than her risk of pulmonary embolism at this point in time. If there is clot burden, we will consider placing IVC filter. 3. History of non-small cell cancer status post treatment with bony metastasis to L5. We will obtain the most recent oncology records to better understand the staging and progression of her disease. There appears to have been some stability over the past few months. 4. Leukocytosis likely steroid-induced. This was stopped in order to decrease the friability of the airway prior to bronchoscopy. 5. Pseudomonas bronchitis versus pneumonia. We will continue a total course of 14 days of antibiotics. MTDD
--- NOTE | 2021-02-09 13:46 | REP ---
INDICATION: history of pulmonary embolism, now off anitcoag COMPARISON: None. TECHNIQUE: Real time compression and duplex Doppler interrogation of the bilateral lower extremity deep venous system is performed. FINDINGS: Bilaterally, the common femoral, superficial femoral and popliteal veins are fully compressible with transducer pressure and demonstrate normal spontaneous and phasic flow, without evidence of deep venous thrombosis. IMPRESSION: No evidence of deep venous thrombosis of the bilateral lower extremity femoral popliteal venous system. <Electronically signed by Jason Torres > 02/09/21 [id number]
[2021-02-09 14:21] VITALS: BP 125/85
[2021-02-09] MEDS: MAGNESIUM OXIDE 400MG TAB (MAG-OX) PO SCH (20:24)
[2021-02-09] MEDS: diltiaZEM **CD** 180 MG CAP PO SCH (20:25)
[2021-02-09 20:44] VITALS: BP 125/84
[2021-02-09 21:00] VITALS: O2SAT 100
[2021-02-10 06:07] VITALS: BP 98/63
[2021-02-10] MEDS: SLF 3 ML SYR IV SCH ×3 (06:08→20:58)
[2021-02-10 08:10] LABS: HEMATOCRIT 30.2 % (36.0-47.0); MEAN CORPUSCULAR HEMOGLOBIN 36.8 pg (27.0-33.0); MEAN CORPUSCULAR HGB CONC 33.1 g/dl (32.0-36.5); PLATELET COUNT, AUTOMATED 265 10^3/uL (150-450); RED BLOOD COUNT 2.72 10^6/uL (4.00-5.40); WHITE BLOOD COUNT 17.3 10^3/uL (4.0-10.0)
[2021-02-10 08:33] LABS: CALCIUM LEVEL 8.1 MG/DL (8.5-10.1); CREATININE FOR GFR 1.02 MG/DL (0.55-1.30); GLOMERULAR FILTRATION RATE 59.9 (>51); POTASSIUM SERUM 3.6 MEQ/L (3.5-5.1)
--- NOTE | 2021-02-10 08:58 | IPN ---
PROGRESS NOTE DATE: 02/10/2021 SUBJECTIVE: I went to Chantale's room this morning. She was eating breakfast. She states that she was feeling pretty well, however did have an episode of fresh blood hemoptysis last evening. After she had fresh blood, then she had about a half of a cup, then had two quarter size clots, after that no further bleeding. She has had no fever or chills. She denies any chest discomfort. She believes her mucous is decreasing. No epistaxis. She remains off anticoagulation. Steroids were stopped yesterday. OBJECTIVE: VITAL SIGNS: Temperature is 97.5, pulse is 72, respiratory rate is 18, blood pressure is 98/63 with a MAP of 75, oxygen saturation is 99% on 2 liters nasal cannula. GENERAL: Patient is awake, alert and oriented. Affect and mood are appropriate. Nutrition and hygiene are good. HEENT: Oral and nasal mucosa pink and moist without lesions. Tongue is midline. NECK: Supple. No tracheal deviation. LYMPH NODES: No cervical, supraclavicular or axillary adenopathy. CARDIAC: Regular S1 and S2 without audible murmur, rub or gallop. No elevated JVP. No peripheral edema. PULMONARY: Decreased breath sounds on the left. Fairly good air entry on the right. I do not auscultate any rhonchi, wheeze or rales. There has been significant improvement in her pulmonary exam. ABDOMEN: Obese, soft, nontender and nondistended. No hepatosplenomegaly. No masses or hernia. EXTREMITIES: No cyanosis, clubbing or edema. MUSCULOSKELETAL: No muscle wasting. No unilateral weakness. No tremor. LABORATORY DATA: Laboratory evaluation this morning shows a white blood cell count of 17.3, likely steroid induced. Hemoglobin 10.0, hematocrit 30.2 and a platelet count of 265,000. Bilateral lower extremity Dopplers were unremarkable. There was no evidence of DVT. IMPRESSION: 1. A 55-year-old female with hemoptysis with underlying history of non-small cell carcinoma of the lung felt to have hemoptysis likely from infection with anticoagulation. Anticoagulation has been held. If patient continues to have hemoptysis which is seems this is the case, is scheduled for bronchoscopy on Friday. Will perform this more urgently if needed. Patient understands the risks of bronchoscopy including bleeding requiring prolonged mechanical ventilation, pneumothorax and . She understands there is potential injury to the lung or surrounding structures. 2. History of pulmonary embolism. Lower extremity Dopplers are negative. At this point in time the diagnosis of pulmonary embolism is distant. It was a peripheral pulmonary embolism, therefore the risk of hemoptysis much outweighs the risk of pulmonary embolism at this point and therefore she remains off anticoagulation. Would not restart at the time of discharge. If she does have recurrence of clot, would consider a filter placement and coumadin. 3. History of malignancy, there remains a possibility that there is a recurrence of malignancy, bronchoscopy would be more revealing as she has had chronic abnormalities on her chest x-ray and chest CT that have been unchanged for over 2 years.
[2021-02-10 09:50] VITALS: BP 118/78
[2021-02-10] MEDS: NEBIVOLOL 5 MG TAB (BYSTOLIC) PO SCH (10:04)
[2021-02-10] MEDS: LevoFLOXacin 750 MG TABLET PO SCH (10:05)
[2021-02-10] MEDS: FOLIC ACID 1 MG TAB PO SCH (10:05)
[2021-02-10] MEDS: PANTOPRAZOLE 40MG TAB (PROTONIX) PO SCH (10:05)
[2021-02-10] MEDS: DOCUSATE SODIUM 100MG CAPSULE PO SCH ×2 (10:05→20:58)
[2021-02-10] MEDS ORDERED: NS 500 ML IV ONE (10:25)
--- NOTE | 2021-02-10 10:27 | IPNPDOC ---
Subjective Date Seen The patient was seen on 02/10/21. Subjective Chief Complaint/HPI Patient had a dizzy spell this morning while washing up in the bathroom. Her 6 am BP was 98/63. Clinically she looks a little dry. Will stop lasix. Will reduce night dose of diltiazem from 180 to 120. will give 500 cc NS bolus. She again had hemoptysis last evening about half a cup and then couple of clots during the night. Objective Physical Examination General Exam: Positive: Alert, Cooperative, No Acute Distress Eye Exam: Positive: PERRLA, Conjunctiva & lids normal, EOMI; Negative: Sclera icteric Neck Exam: Positive: Supple; Negative: JVD, thyromegaly Chest Exam: Positive: Clear to auscultation, Other (bronchial breath sounds in the left upper lobe back of chest. Eogophony at the left upper back.) Heart Exam: Positive: Rate Normal, Regular Rhythm, Normal S1, Normal S2; Negative: Murmurs, Rubs Abdomen Exam: Positive: Normal bowel sounds, Soft; Negative: Hepatospenomegaly Extremity Exam: Negative: Clubbing, Cyanosis, Edema Assessment /Plan Assessment This is a 55-year-old female with history of left upper lobe lung cancer diagnosed in 2018 with mets to bone s/p radiation, undergoing chemotherapy { last in the beginning of january} , PE in 2017, COVID infection in Nov , bronchiectasis, COPD, Afib presented to the Emergency Room with ongoing hemoptysis taking Xarelto and aspirin. Hemoptysis continues to have bouts of coughing with hemoptysis 4 to5 times a day. likely due to bronchiectasis and pneumonia and stage 4 lung cancer in the back ground of being on xarelto will stop Xarelto Continue cough suppressants, levofloxacin. Right rib xray and right scapular xray unremarkable CT chest on 02/08/21 looks slightly better than before . There is very significant disease on the left as before, Right is clean. .Right side infiltrates have cleared. No effusion. Planned from bronchoscopy on Friday if continues to have hemoptysis. Pseudomonas pneumonia right middle and right lower lobe and likely in the left upper lobe at the site of the cancer continue levofloxacin. Chronic Anemia stable due chronic disease. May be slightly worse at this time likely due to blood draws and hemoptysis. COPD exacerbation resolved. methyl pred stopped. nebs and inhalers held as they are triggering her cough. Left upper lobe lung cancer diagnosed in 2018 with mets to bone s/p radiation, undergoing chemotherapy History of small PE in 2018 diagnosed at the time of cancer diagnosis will check bilateral legs for DVt. Chronic afib: rate controlled xarelto stopped due to hemoptysis will reduce diltiazem as bp was low. Chronic hypoxic respiratory failure continue oxygen Reflux: On PPI. JORDAN: BMI of 34.4 complicating are. COVID in november Scoliosis: Chronic. has Gonzalez chu. T8 chronic compression Plan/VTE VTE Prophylaxis Ordered?: Yes VS, I&O, 24H, Fishbone Vital Signs/I&O Vital Signs Date Time Temp Pulse Resp B/P (MAP) Pulse Ox O2 Delivery O2 Flow Rate FiO2 02/10/21 10:04 87 118/78 02/10/21 09:50 97.2 18 100 Nasal Cannula 2.0 I&O- Last 24 Hours up to 6 AM 02/10/21 05:59 Intake Total 1740 ml Output Total 0 ml Balance 1740 ml Laboratory Data 24H LABS Laboratory Tests 2 02/09/21 16:00: Coronavirus (COVID-19)(PCR) NEGATIVE 02/10/21 08:00: Nucleated Red Blood Cells % (auto) 0.9H, Anion Gap 4L, Glomerular Filtration Rate 59.9, Calcium Level 8.1L 02/10/21 09:53: Bedside Glucose (Misc Panel) 166H CBC/BMP Laboratory Tests 02/10/21 08:00 Microbiology Microbiology 01/31/21 Blood Culture - Final, Complete NO GROWTH AFTER 5 DAYS 01/31/21 Blood Culture - Final, Complete NO GROWTH AFTER 5 DAYS CAROLYNE WALTON MD Feb 10, 2021 10:27
[2021-02-10 14:00] VITALS: BP 109/71
[2021-02-10 20:26] VITALS: BP 115/72
[2021-02-10] MEDS: MAGNESIUM OXIDE 400MG TAB (MAG-OX) PO SCH (20:58)
[2021-02-10] MEDS: ACETAMINOPHEN TAB 650MG DOSE (2X325MG) PO PRN (20:59)
[2021-02-10 22:11] VITALS: O2SAT 100
[2021-02-11] MEDS: SLF 3 ML SYR IV SCH ×3 (05:49→20:52)
[2021-02-11 06:26] VITALS: BP 115/72
[2021-02-11 09:00] VITALS: O2SAT 100
[2021-02-11] MEDS: DOCUSATE SODIUM 100MG CAPSULE PO SCH ×2 (09:56→20:51)
[2021-02-11] MEDS: LevoFLOXacin 750 MG TABLET PO SCH (09:56)
[2021-02-11] MEDS: PANTOPRAZOLE 40MG TAB (PROTONIX) PO SCH (09:56)
[2021-02-11] MEDS: FOLIC ACID 1 MG TAB PO SCH (09:56)
[2021-02-11] MEDS: NEBIVOLOL 5 MG TAB (BYSTOLIC) PO SCH (09:57)
--- NOTE | 2021-02-11 11:45 | IPNPDOC ---
Subjective Date Seen The patient was seen on 02/11/21. Subjective Chief Complaint/HPI Patient continues to have hemoptysis. Its noted that her pulse is higher than usual about 110 . EKG showed sinus tachy. Likely due to reduction in her diltiazem dose and her being hypovolemic. No palpitation. Objective Physical Examination General Exam: Positive: Alert, Cooperative, No Acute Distress Eye Exam: Positive: PERRLA, Conjunctiva & lids normal, EOMI; Negative: Sclera icteric Neck Exam: Positive: Supple; Negative: JVD, thyromegaly Chest Exam: Positive: Rhonchi (anteriorly), Wheezing (anteriorly), Other (bronchial breath sounds in the left upper lobe back of chest. Eogophony at the left upper back.) Heart Exam: Positive: Rate Normal, Regular Rhythm, Normal S1, Normal S2; Negative: Murmurs, Rubs Abdomen Exam: Positive: Normal bowel sounds, Soft; Negative: Hepatospenomegaly Extremity Exam: Negative: Clubbing, Cyanosis, Edema Assessment /Plan Assessment This is a 55-year-old female with history of left upper lobe lung cancer diagnosed in 2018 with mets to bone s/p radiation, undergoing chemotherapy { last in the beginning of january} , PE in 2018, COVID infection in Nov , bronchiectasis, COPD, Afib presented to the Emergency Room with ongoing hemoptysis taking Xarelto and aspirin. Hemoptysis continues to have bouts of coughing with hemoptysis 4 to5 times a day. likely due to bronchiectasis and pneumonia and stage 4 lung cancer in the back ground of being on xarelto Xarelto stopped and will not be restarted. Continue cough suppressants, levofloxacin. Right rib xray and right scapular xray unremarkable done due to rith shoulder blade discomfort. CT chest on 02/08/21 looks slightly better than before . There is very significant disease on the left as before, Right is clean. .Right side infiltrates have cleared. No effusion. Planned from bronchoscopy. Pseudomonas pneumonia right middle and right lower lobe and likely in the left upper lobe at the site of the cancer continue levofloxacin. Chronic Anemia stable due chronic disease. May be slightly worse at this time likely due to blood draws and hemoptysis. COPD exacerbation resolved. methyl pred stopped. nebs and inhalers held as they are triggering her cough. Left upper lobe lung cancer diagnosed in 2018 with mets to bone s/p radiation, undergoing chemotherapy History of small PE in 2018 diagnosed at the time of cancer diagnosis will check bilateral legs for DVt. Chronic afib: rate controlled xarelto stopped due to hemoptysis reduced diltiazem from 180 to 120 as bp was low. Chronic hypoxic respiratory failure continue oxygen Reflux: On PPI. JORDAN: BMI of 34.4 complicating are. COVID in november Scoliosis: Chronic. has Gonzalez chu. T8 chronic compression Plan/VTE VTE Prophylaxis Ordered?: Yes VS, I&O, 24H, Fishbone Vital Signs/I&O Vital Signs Date Time Temp Pulse Resp B/P (MAP) Pulse Ox O2 Delivery O2 Flow Rate FiO2 02/11/21 09:57 114 102/73 02/11/21 09:00 2.0 02/11/21 09:00 100 Nasal Cannula 02/11/21 06:26 97.0 20 02/10/21 10:30 21 I&O- Last 24 Hours up to 6 AM 02/11/21 06:00 Intake Total 2320 ml Output Total 0 ml Balance 2320 ml CAROLYNE WALTON MD Feb 11, 2021 11:45
--- NOTE | 2021-02-11 11:51 | ECGEPIP ---
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
--- NOTE | 2021-02-11 13:17 | IPN ---
PROGRESS NOTE DATE: 02/11/2021 SUBJECTIVE: Chantale is laying in her bed when I arrive to her room. She states with minimal movement, her heart rate goes up. She did have an episode the day before with some lightheadedness and her primary team rightfully stopped her Lasix, gave her some intravenous (IV) fluids, but also decreased her diltiazem. Her tachycardia today may be secondary to the lower diltiazem dose. She has had some chest tightness, which is a band-like feeling around her lower abdomen. She is wheezing a little bit more. This may be because the steroids were stopped due to the possibility of inducing friability. Patient continues to cough up blood; therefore, we will perform bronchoscopy tomorrow as scheduled. She has had no fever or chills. She currently has no mucus combined with the hemoptysis. PHYSICAL EXAMINATION: Temperature 97.0, pulse is ranging from 79-114, pulse was 95 when I was in the room. Respiratory rate of 20, blood pressure ranging from 102/73 to 115/72. Oxygen saturation is 100% on 2 liters. GENERAL: Awake, alert and oriented. Affect and mood appropriate. Nutrition and hygiene good. HEENT: Oral and nasal mucosa pink and moist without lesions. Oropharynx without erythema or exudate. LYMPH: No supraclavicular or axillary adenopathy. CARDIAC: Distant S1, S2. Tachycardic without murmur, rub or gallop. I do not discern any elevated jugular venous pressure (JVP). There is no systemic leg edema. PULMONARY: Decreased breath sounds on the left. No rales, rhonchi or wheezes. No dullness to percussion. No accessory muscle use. ABDOMEN: Obese, soft, nondistended, nontender. No hepatosplenomegaly, masses or herniation. EXTREMITIES: No cyanosis or clubbing or edema. SKIN: Without rashes, jaundice or bruising. LABORATORY EVALUATION: From yesterday shows an elevated white count of 17.3, hemoglobin of 10.0. Sodium 139, potassium 3.6, chloride 98, bicarbonate 37, BUN 26, creatinine 1.08. IMPRESSION: 1. Hemoptysis. Thought to be initially secondary to infection, was growing pseudomonas. She is day #11 out of 14 of levofloxacin. Prior to that was on cefdinir. Leukocytosis likely from recent steroid use. This has been stopped in case this is contributing to friability. However, she may have more bronchospasm in the absence of the steroid. I agree with holding her Lasix and hydrating some. She may require additional dose of diltiazem because of her tachycardia. 2. Tachycardia. Managed as mentioned above. PLAN: Bronchoscopy tomorrow to look for source of bleeding and potential consideration for intervention with interventional radiology (IR).
[2021-02-11 14:00] VITALS: BP 105/69
[2021-02-11] MEDS: MAGNESIUM OXIDE 400MG TAB (MAG-OX) PO SCH (20:51)
[2021-02-11] MEDS: ACETAMINOPHEN TAB 650MG DOSE (2X325MG) PO PRN (20:51)
[2021-02-11 21:00] VITALS: O2SAT 98
[2021-02-11 22:00] VITALS: BP 102/67
[2021-02-12] VITALS (10 sets, daily range): BP systolic 90–125; BP diastolic 62–93; O2SAT 94
[2021-02-12] MEDS: SLF 3 ML SYR IV SCH ×3 (06:12→20:46)
[2021-02-12 08:31] LABS: BASO # 0.1 10^3/uL (0.0-0.2); BASO % 0.7 % (0.0-1.0); EOS # 0.1 10^3/uL (0.0-0.5); EOS % 0.7 % (0.0-3.0); HEMATOCRIT 28.1 % (36.0-47.0); HEMOGLOBIN 9.1 g/dl (12.0-15.5); LYMPH # 0.7 10^3/uL (1.5-5.0); LYMPH % 5.2 % (24.0-44.0); MEAN CORPUSCULAR HEMOGLOBIN 37.1 pg (27.0-33.0); MEAN CORPUSCULAR HGB CONC 32.4 g/dl (32.0-36.5); MONO # 1.6 10^3/uL (0.0-0.8); MONO % 12.8 % (2.0-8.0); NEUTROPHILS # 9.3 10^3/uL (1.5-8.5); NEUTROPHILS % 73.4 % (36.0-66.0); PLATELET COUNT, AUTOMATED 192 10^3/uL (150-450); RED BLOOD COUNT 2.45 10^6/uL (4.00-5.40)
[2021-02-12 08:52] LABS: MEAN CORPUSCULAR VOLUME 114.7 fl (80.0-96.0); WHITE BLOOD COUNT 12.7 10^3/uL (4.0-10.0)
[2021-02-12 08:54] LABS: BLOOD UREA NITROGEN 17 MG/DL (7-18); CARBON DIOXIDE LEVEL 36 MEQ/L (21-32); CHLORIDE LEVEL 103 MEQ/L (98-107); CREATININE FOR GFR 0.75 MG/DL (0.55-1.30); GLOMERULAR FILTRATION RATE > 60.0 (>51); GLUCOSE, FASTING 99 MG/DL (70-100); POTASSIUM SERUM 3.4 MEQ/L (3.5-5.1); SODIUM LEVEL 142 MEQ/L (136-145)
[2021-02-12] MEDS ORDERED: CETACAINE SPRAY 5GM As Ordered ONE ×2 (11:31→12:27)
[2021-02-12] MEDS ORDERED: fentaNYL 100 MCG/2 ML INJECTION (J3010) As Ordered ONE (11:39)
[2021-02-12] MEDS ORDERED: LIDOCAINE 2% 100MG/5ML SDV (FOR ANES.) As Ordered ONE (11:39)
[2021-02-12] MEDS ORDERED: MIDAZOLAM INJ 2MG/2ML VIAL (J2250 PER 1MG) As Ordered ONE (11:39)
[2021-02-12] MEDS ORDERED: ROCURONIUM BROMIDE 50 MG/5 ML VIAL As Ordered ONE (11:39)
[2021-02-12] MEDS ORDERED: ONDANSETRON 4MG/2ML VIAL As Ordered ONE (11:39)
[2021-02-12] MEDS ORDERED: propofoL 200 MG/20 ML VIAL As Ordered ONE (11:39)
[2021-02-12] MEDS ORDERED: dexameTHASONE 4 MG/ML 1ML VIAL (J1100 PER 1MG) As Ordered ONE (11:39)
[2021-02-12] MEDS ORDERED: SUGAMMADEX SODIUM 500 MG/5 ML VIAL (BRIDION) As Ordered ONE (11:40)
[2021-02-12] MEDS ORDERED: HYDROCORTISONE 100 MG/2 ML VIAL (J1720 PER 1) As Ordered ONE (12:34)
--- NOTE | 2021-02-12 12:50 | IPNPDOC ---
Subjective Date Seen The patient was seen on 02/12/21. Subjective Chief Complaint/HPI Going for bronchoscopy today. Again with Soft Bps this am 90/62 and Bp mostly in 100s/60s even with lowered diltiazem dose. Continues to have small amount of hemoptysis with some clots. Objective Physical Examination General Exam: Positive: Alert, Cooperative, No Acute Distress Eye Exam: Positive: PERRLA, Conjunctiva & lids normal, EOMI; Negative: Sclera icteric Neck Exam: Positive: Supple; Negative: JVD, thyromegaly Chest Exam: Positive: Rhonchi (anteriorly), Wheezing (anteriorly), Other (bronchial breath sounds in the left upper lobe back of chest. Eogophony at the left upper back.) Heart Exam: Positive: Rate Normal, Regular Rhythm, Normal S1, Normal S2; Negative: Murmurs, Rubs Abdomen Exam: Positive: Normal bowel sounds, Soft; Negative: Hepatospenomegaly Extremity Exam: Negative: Clubbing, Cyanosis, Edema Assessment /Plan Assessment This is a 55-year-old female with history of left upper lobe lung cancer di agnosed in 2018 with mets to bone s/p radiation, undergoing chemotherapy { last in the beginning of january} , PE in 2018, COVID infection in Nov , bronchiectasis, COPD, Afib presented to the Emergency Room with ongoing hemoptysis taking Xarelto and aspirin. Hemoptysis continues to have bouts of coughing with hemoptysis 4 to5 times a day. likely due to bronchiectasis and pneumonia and stage 4 lung cancer in the back ground of being on xarelto No more xarelto to be given. Continue cough suppressants, levofloxacin. Right rib xray and right scapular xray unremarkable CT chest on 02/08/21 looks slightly better than before . There is very significant disease on the left as before, Right is clean. .Right side infiltrates have cleared. No effusion. Planned from bronchoscopy Pseudomonas pneumonia right middle and right lower lobe and likely in the left upper lobe at the site of the cancer continue levofloxacin. Chronic Anemia stable due chronic disease. May be slightly worse at this time likely due to blood draws and hemoptysis. COPD exacerbation resolved. methyl pred stopped to reduce friability nebs and inhalers held as they are triggering her cough. Left upper lobe Non small cell lung cancer diagnosed in 2018 with mets to bone s/p radiation, undergoing chemotherapy History of small PE in 2018 diagnosed at the time of cancer diagnosis bilateral legs negative for DVt. No more xarelto due to persistent hemoptysis. Chronic afib: rate controlled xarelto stopped due to hemoptysis reduced diltiazem from 180 to 120 as bp is low. Once Bp improves can go back to home dosage. If pulse becomes uncontrolled and BP low may need an alternate med like digoxin. Chronic hypoxic respiratory failure continue oxygen Reflux: On PPI. JORDAN: BMI of 34.4 complicating are. COVID in november Scoliosis: Chronic. has Gonzalez chu. T8 chronic compression Plan/VTE VTE Prophylaxis Ordered?: Yes VS, I&O, 24H, Fishbone Vital Signs/I&O Vital Signs Date Time Temp Pulse Resp B/P (MAP) Pulse Ox O2 Delivery O2 Flow Rate FiO2 02/12/21 09:40 2.0 02/12/21 06:35 88 18 104/76 (85) 100 Nasal Cannula 02/12/21 06:00 97.7 02/10/21 10:30 21 I&O- Last 24 Hours up to 6 AM 02/12/21 06:00 Intake Total 1920 ml Output Total 0 ml Balance 1920 ml Laboratory Data 24H LABS Laboratory Tests 2 02/12/21 08:01: Immature Granulocyte % (Auto) 7.2H, Neutrophils (%) (Auto) 73.4H, Lymphocytes (%) (Auto) 5.2L, Monocytes (%) (Auto) 12.8H, Eosinophils (%) (Auto) 0.7, Basophils (%) (Auto) 0.7, Neutrophils # (Auto) 9.3H, Lymphocytes # (Auto) 0.7L, Monocytes # (Auto) 1.6H, Eosinophils # (Auto) 0.1, Basophils # (Auto) 0.1, Nucleated Red Blood Cells % (auto) 0.2H, Anion Gap 3L, Glomerular Filtration Rate > 60.0, Calcium Level 8.0L CBC/BMP Laboratory Tests 02/12/21 08:01 CAROLYNE WALTON MD Feb 12, 2021 12:49
[2021-02-12] MEDS ORDERED: ALBUTEROL SULFATE 2.5 MG/0.5 ML INH NEB SOLN NEB STA (13:10)
--- NOTE | 2021-02-12 13:26 | REP ---
INDICATION: S/p bronch with L upper lobe bx. COMPARISON: [facility]. TECHNIQUE: SINGLE PORTABLE AP VIEW OF THE CHEST WAS PERFORMED. FINDINGS: Right pleural effusion is unchanged. Large left lung mass is again noted unchanged. There is no pneumothorax. Visualized cardiomediastinal silhouette is unchanged. Thoracic spine metallic hardware is noted. A right central venous catheter is seen unchanged. IMPRESSION: No acute findings. <Electronically signed by Jason Torres > 02/12/21 [id number]
--- NOTE | 2021-02-12 13:28 | RO ---
OPERATIVE NOTE DATE OF OPERATION: 02/12/2021 PREOPERATIVE DIAGNOSIS: Abnormal chest CT and hemoptysis. POSTOPERATIVE DIAGNOSIS: Hemoptysis, endobronchial lesion left upper lobe. FINDINGS: Tumor burden left upper lobe and lingula. PROCEDURE: Bronchoscopy with endobronchial biopsies. PROCEDURALIST: Vic Garcia D.O. TAX ASSISTANT: None. SPECIMENS OBTAINED: Endobronchial biopsies left upper lobe. ANESTHESIA: General. ESTIMATED BLOOD LOSS: Less than 5 mL. BLOOD PRODUCTS: None replaced. COMPLICATIONS: None observed. DRAINS: None. DESCRIPTION OF PROCEDURE: After informed consent was reviewed with the patient in the preoperative area, she was brought back to OR 8. General anesthesia was initiated with an 8.0 endotracheal. The case was then handed over to me. A time-out was performed with two patient identifiers, identifying correct site and correct procedure along with correlating name and date of with radiology. Cetacaine spray was then used to anesthetize the airway and provide lubrication for the 1T190 bronchoscope. Immediately on advancement of the bronchoscope into the airway, it was clear that the blood was coming from the left side. The iris was sharp, but was macerated along the left side. There was blood clot that was removed from the left mainstem to reveal tumor-like endobronchial lesion extending from the takeoff of the lingula and left upper lobe. It was on the medial side. I was able to advance the bronchoscope underneath with findings of additional tumor studding throughout the airways. The left lower lobe, although extrinsically compressed, showed no endobronchial lesions. There were some areas of old hemorrhage and this was suctioned. LB6 through 10 was without endobronchial lesion. I then inspected the right mainstem and right bronchus intermedius was normal except for smokers airway. RB1 through 10 without endobronchial lesion. The left mainstem did have areas of paleness consistent with prior radiation. Endobronchial biopsies were taken of the left upper lobe lesion. I nearly debrided the majority of the most proximal endobronchial lesion. Pictures were taken before and after. There was no evidence of hemorrhage after biopsy. Bronchoscope was removed after hemostasis was assured. Patient was extubated in recovery. Postprocedure chest x-ray shows chronic left upper lobe abnormalities without pneumothorax.. MTDD
[2021-02-12] MEDS ORDERED: MORPHINE 2 MG/ML 1ML VIAL (J2270) IV PRN (13:35)
[2021-02-12] MEDS ORDERED: oxyCODONE 5MG TAB PO PRN (13:35)
[2021-02-12] MEDS ORDERED: fentaNYL 100 MCG/2 ML INJECTION (J3010) IV PRN (13:35)
[2021-02-12] MEDS ORDERED: ONDANSETRON 4MG/2ML VIAL IV PRN (13:35)
[2021-02-12] MEDS ORDERED: LR 1,000 ML IV SCH (13:35)
[2021-02-12] MEDS: DOCUSATE SODIUM 100MG CAPSULE PO SCH ×2 (14:08→20:46)
[2021-02-12] MEDS: LevoFLOXacin 750 MG TABLET PO SCH (14:08)
[2021-02-12] MEDS: PANTOPRAZOLE 40MG TAB (PROTONIX) PO SCH (14:08)
[2021-02-12] MEDS: NEBIVOLOL 5 MG TAB (BYSTOLIC) PO SCH (14:08)
[2021-02-12] MEDS: FOLIC ACID 1 MG TAB PO SCH (14:08)
[2021-02-12] MEDS ORDERED: POTASSIUM CHLORIDE 10 MEQ SR TABLET PO ONE (18:00)
[2021-02-12] MEDS: MAGNESIUM OXIDE 400MG TAB (MAG-OX) PO SCH (20:45)
[2021-02-12] MEDS: ACETAMINOPHEN TAB 650MG DOSE (2X325MG) PO PRN (20:45)
[2021-02-13] VITALS (9 sets, daily range): BP systolic 96–117; BP diastolic 61–83
[2021-02-13 00:14] LABS: HEMATOCRIT 26.3 % (36.0-47.0); HEMOGLOBIN 8.6 g/dl (12.0-15.5)
[2021-02-13] MEDS: SLF 3 ML SYR IV SCH ×3 (05:54→22:50)
[2021-02-13] MEDS: NEBIVOLOL 5 MG TAB (BYSTOLIC) PO SCH (09:00)
[2021-02-13] MEDS: LevoFLOXacin 750 MG TABLET PO SCH (09:45)
[2021-02-13] MEDS: PANTOPRAZOLE 40MG TAB (PROTONIX) PO SCH (09:45)
[2021-02-13] MEDS: FOLIC ACID 1 MG TAB PO SCH (09:46)
[2021-02-13] MEDS: DOCUSATE SODIUM 100MG CAPSULE PO SCH ×2 (09:46→22:28)
[2021-02-13 09:51] LABS: BASO % 0.3 % (0.0-1.0); EOS # 0.1 10^3/uL (0.0-0.5); EOS % 0.7 % (0.0-3.0); HEMATOCRIT 26.9 % (36.0-47.0); HEMOGLOBIN 8.5 g/dl (12.0-15.5); LYMPH # 0.7 10^3/uL (1.5-5.0); LYMPH % 6.1 % (24.0-44.0); MEAN CORPUSCULAR HEMOGLOBIN 36.8 pg (27.0-33.0); MEAN CORPUSCULAR HGB CONC 31.6 g/dl (32.0-36.5); MONO # 1.2 10^3/uL (0.0-0.8); MONO % 9.8 % (2.0-8.0); NEUTROPHILS # 9.3 10^3/uL (1.5-8.5); NEUTROPHILS % 78.8 % (36.0-66.0); PLATELET COUNT, AUTOMATED 178 10^3/uL (150-450); RED BLOOD COUNT 2.31 10^6/uL (4.00-5.40); WHITE BLOOD COUNT 11.8 10^3/uL (4.0-10.0)
[2021-02-13] MEDS: ACETAMINOPHEN TAB 650MG DOSE (2X325MG) PO PRN (09:53)
[2021-02-13 10:00] LABS: MEAN CORPUSCULAR VOLUME 116.5 fl (80.0-96.0)
[2021-02-13 10:14] LABS: ALBUMIN 2.9 GM/DL (3.2-5.2); BILIRUBIN,TOTAL 0.5 MG/DL (0.2-1.0); CALCIUM LEVEL 8.7 MG/DL (8.5-10.1); CREATININE FOR GFR 1.02 MG/DL (0.55-1.30); GLOMERULAR FILTRATION RATE 59.9 (>51); MAGNESIUM LEVEL 1.8 MG/DL (1.8-2.4); TOTAL PROTEIN 5.5 GM/DL (6.4-8.2)
--- NOTE | 2021-02-13 11:02 | IPNPDOC ---
Date Seen The patient was seen on 02/13/21. Progress Note SUBJECTIVE: patient seen and examined at bedside. Continues to have hemoptysis, ~1/2-1 cup overnight. S/p bronchoscopy on 02/12/21. Denies chest pain, shortness of breath, n/v/d, fevers or chills. OBJECTIVE PHYSICAL EXAMINATION: VITAL SIGNS: please see below General: NAD, comfortable HEENT: PERRLA, EOMI, sclerae clear Neck: supple, normal ROM, no JVD Respiratory: lungs CTAB, no wheeze, no rales, no crackles CVS: RRR, normal S1, S2, no murmurs Abdo: soft, no masses, no hepatosplenomegaly, BS+, no rebound tenderness Extremities: no edema, pulses 2+ MSK: no joint deformities, normal ROM Neuro: no focal neuro deficits, moving all 4 extremities, CN2-12 intact. Strength 5/5 in all 4 extremities. No nystagmus. Psych: calm, cooperative, AAO x 3 LABORATORY DATA, IMAGING STUDIES, MICROBIOLOGY: Please see below. DVT prophylaxis ordered?: SCDs. TEDs. Holding AC due to hemoptysis ASSESSMENT AND PLAN: 55-year-old female with history of left upper lobe lung cancer diagnosed in 2018 with mets to bone s/p radiation, undergoing chemotherapy(last at start of 01/21), PE in 2017, COVID infection in Nov , bronchiectasis, COPD, Afib presented to the Emergency Room with ongoing hemoptysis taking Xarelto and aspirin. PROBLEMS: Hemoptysis - continues, worse overngight. - likely due to bronchiectasis and pneumonia and stage 4 lung cancer in the back ground of being on xarelto - Continue cough suppressants, levofloxacin. - Right rib xray and right scapular xray unremarkable - CT chest on 02/08/21 looks slightly better than before . There is very significant disease on the left as before, Right is clean. Right side infiltrates have cleared. No effusion. - continuing to hold Xarelto - Hgb remains stable - s/p bronchoscopy on 02/12/[address] Garcia. Noted a lung mass in L upper lobe - recommendation for IR embolization - I spoke with Dr. Allan, consult placed for evaluation for possible embolization of bronchial artery to L upper lobe Pseudomonas pneumonia - right middle and right lower lobe and likely in the left upper lobe at the site of the mass - continue levofloxacin. Chronic Anemia like due to chronic disease - stable - worsened likely due to blood draws and hemoptysis. COPD exacerbation -resolved. -methyl pred stopped to reduce friability -nebs and inhalers held as they are triggering her cough. Left upper lobe Non small cell lung cancer diagnosed in 2018 with mets to bone s/p radiation, - undergoing chemotherapy History of small PE in 2018 diagnosed at the time of cancer diagnosis - bilateral LE venous duplex negative for DVT - holding xarelto due to active hemoptysis Chronic afib: - rate controlled - xarelto stopped due to hemoptysis - reduced diltiazem from 180 to 120 as bp is low. Once BP improves can go back to home dosage. - If pulse becomes uncontrolled and BP low may need an alternate med like digoxin. Chronic hypoxic respiratory failure continue oxygen GERD: On PPI. JORDAN: BMI of 34.4 complicating are. Hx of Covid in 11/2020. Scoliosis: Chronic. has Gonzalez chu. T8 chronic compression Dispo: pending clinical improvement. VS[facility] V[facility] Signs/I&O Vital Signs Date Time Temp Pulse Resp B/P (MAP) Pulse Ox O2 Delivery O2 Flow Rate FiO2 02/13/21 10:00 98.2 98 18 99/63 (75) 100 Nasal Cannula 2.0 02/10/21 10:30 21 I&O- Last 24 Hours up to 6 AM 02/13/21 06:00 Intake Total 1460 ml Output Total 0 ml Balance 1460 ml Laboratory Data 24H LABS Laboratory Tests 2 02/13/21 08:56: Anion Gap 4L, Glomerular Filtration Rate 59.9, Calcium Level 8.7, Magnesium Level 1.8, Total Bilirubin 0.5, Aspartate Amino Transf (AST/SGOT) 19, Alanine Aminotransferase (ALT/SGPT) 35, Alkaline Phosphatase 56, Total Protein 5.5L, Albumin 2.9L, Albumin/Globulin Ratio 1.1L 02/13/21 08:57: Immature Granulocyte % (Auto) 4.3H, Neutrophils (%) (Auto) 78.8H, Lymphocytes (%) (Auto) 6.1L, Monocytes (%) (Auto) 9.8H, Eosinophils (%) (Auto) 0.7, Baso phils (%) (Auto) 0.3, Neutrophils # (Auto) 9.3H, Lymphocytes # (Auto) 0.7L, Monocytes # (Auto) 1.2H, Eosinophils # (Auto) 0.1, Basophils # (Auto) 0.0, Nucleated Red Blood Cells % (auto) 0.0 CBC/BMP Laboratory Tests 02/13/21 00:04 02/13/21 08:56 02/13/21 08:57 OPAL CHEN MD Feb 13, 2021 11:02
--- NOTE | 2021-02-13 12:39 | IPN ---
PROGRESS NOTE DATE: 02/13/2021 SUBJECTIVE: Chantale continues to have hemoptysis. She states after eating dinner, she had a large amount of hemoptysis, saved it in a bag, about a cup and a half full of fresh blood. Since that time, continued to have some coughing up of blood clots. On bronchoscopy yesterday there were findings of endobronchial tumor. The lesions were in the left upper lobe. The largest lesion was biopsied. I discussed with Dr. Allan this morning the possibility of embolization. She agrees that this is the therapy of choice at this point in time. She is agreeing to evaluate the patient for consideration of this procedure. The patient feels wheezy, congested and has had some sinus tachycardia overnight. OBJECTIVE: Vital signs: Temperature is 98.2, pulse is 98, respiratory rate is 18, blood pressure is 99/63 with a MAP of 75, oxygen saturation is 100% on 2 liters. General: Awake, alert, oriented, able to speak in full sentences. HEENT: Sclerae are clear, nonicteric. Mucous membranes are moist without lesions. Tongue is midline. Neck is supple. No tracheal deviation or mass. Lymph: No cervical, supraclavicular, or axillary adenopathy. Cardiac: Tachycardic, S1, S2 without audible murmur, rub, or gallop. Pulmonary: Some better air entry on the left surprisingly. It may be secondary to debridement. I auscultate more rhonchi throughout both lung patterson today. Abdomen: Obese, soft, nontender, nondistended. No hepatosplenomegaly. No masses or hernia. Extremities: No cyanosis, clubbing, or edema. Skin: No rash, jaundice or bruising. Laboratory evaluation shows white count of 11 down to 11.8, hemoglobin 8.5, platelet count 178. Sodium 141, potassium is 4.0, chloride 103, bicarb of 34, BUN of 14, creatinine 1.02. Fasting glucose 139. Albumin of 2.9. No new imaging today. ASSESSMENT: 1. Hemoptysis likely from tumor burden left upper lobe. Plan for embolization today. Hopefully this will control bleeding. We will continue to monitor the patient in-hospital off anticoagulation. Avoiding steroids at this point in time on order to prevent friability. I believe the wheezing is mostly from mucus and blood in the airway. 2. Underlying malignancy likely recurrence of non-small cell cancer of the left upper lobe. I alerted Dr. Carter to the findings on bronchoscopy yesterday. Awaiting results of pathology. The patient will require outpatient PET scan. 3. Overall the patient's clinical course remains guarded. Continues to have hemoptysis. Will require additional stay until this is improved.
[2021-02-13] MEDS ORDERED: ISOVUE-300 61% 50ML VIAL As Ordered ONE ×4 (15:49→18:46)
[2021-02-13] MEDS ORDERED: LIDOCAINE 1% MDV 20ML VIAL As Ordered ONE (15:49)
[2021-02-13] MEDS ORDERED: diphenhydrAMINE 50MG/ML VIAL (J1200) As Ordered ONE (17:40)
[2021-02-13] MEDS ORDERED: fentaNYL 100 MCG/2 ML INJECTION (J3010) As Ordered ONE (17:41)
[2021-02-13] MEDS ORDERED: MIDAZOLAM INJ 2MG/2ML VIAL (J2250 PER 1MG) As Ordered ONE (17:41)
[2021-02-13] MEDS: PERCOCET 5MG/325MG TAB PO PRN (22:28)
[2021-02-13] MEDS: MAGNESIUM OXIDE 400MG TAB (MAG-OX) PO SCH (22:28)
[2021-02-14 02:00] VITALS: BP 98/65
[2021-02-14] MEDS: PERCOCET 5MG/325MG TAB PO PRN ×2 (05:21→19:55)
[2021-02-14 06:00] VITALS: BP 98/62
[2021-02-14] MEDS: SLF 3 ML SYR IV SCH ×3 (06:37→19:54)
[2021-02-14] MEDS: FOLIC ACID 1 MG TAB PO SCH (09:27)
[2021-02-14] MEDS: NEBIVOLOL 5 MG TAB (BYSTOLIC) PO SCH (09:28)
[2021-02-14] MEDS: PANTOPRAZOLE 40MG TAB (PROTONIX) PO SCH (09:28)
[2021-02-14] MEDS: DOCUSATE SODIUM 100MG CAPSULE PO SCH ×2 (09:28→19:54)
[2021-02-14 09:37] LABS: BASO % 0.4 % (0.0-1.0); EOS # 0.1 10^3/uL (0.0-0.5); HEMATOCRIT 26.8 % (36.0-47.0); HEMOGLOBIN 8.3 g/dl (12.0-15.5); LYMPH # 1.2 10^3/uL (1.5-5.0); LYMPH % 10.8 % (24.0-44.0); MEAN CORPUSCULAR HEMOGLOBIN 36.9 pg (27.0-33.0); MONO # 1.5 10^3/uL (0.0-0.8); MONO % 13.5 % (2.0-8.0); NEUTROPHILS # 7.6 10^3/uL (1.5-8.5); NEUTROPHILS % 69.5 % (36.0-66.0); PLATELET COUNT, AUTOMATED 189 10^3/uL (150-450); RED BLOOD COUNT 2.25 10^6/uL (4.00-5.40)
[2021-02-14 09:39] LABS: MEAN CORPUSCULAR VOLUME 119.1 fl (80.0-96.0)
[2021-02-14 09:54] LABS: ANISOCYTOSIS 2+; HYPOCHROMASIA 1+; TEAR DROP CELLS 1+
[2021-02-14 09:56] LABS: MICROCYTOSIS 3+; PLATELET ESTIMATE NORMAL (NORMAL)
[2021-02-14 10:00] VITALS: BP 93/54
[2021-02-14 10:00] LABS: ALBUMIN 3.1 GM/DL (3.2-5.2); ALT/SGPT 32 U/L (12-78); BILIRUBIN,TOTAL 0.5 MG/DL (0.2-1.0); BLOOD UREA NITROGEN 10 MG/DL (7-18); CALCIUM LEVEL 8.3 MG/DL (8.5-10.1); CARBON DIOXIDE LEVEL 33 MEQ/L (21-32); CHLORIDE LEVEL 104 MEQ/L (98-107); CREATININE FOR GFR 0.87 MG/DL (0.55-1.30); GLOMERULAR FILTRATION RATE > 60.0 (>51); GLUCOSE, FASTING 120 MG/DL (70-100); MAGNESIUM LEVEL 1.5 MG/DL (1.8-2.4); POTASSIUM SERUM 4.2 MEQ/L (3.5-5.1); SODIUM LEVEL 140 MEQ/L (136-145); TOTAL PROTEIN 5.7 GM/DL (6.4-8.2)
[2021-02-14] MEDS: LevoFLOXacin 750 MG TABLET PO SCH (10:12)
[2021-02-14 14:00] VITALS: BP 117/76
--- NOTE | 2021-02-14 17:07 | DS.PDOC ---
Discharge Summary General Date of Admission Feb 02, 2021 at 09:38 Date of Discharge 02/14/21 Discharge Summary PROCEDURES PERFORMED DURING STAY: [None]. ADMITTING DIAGNOSES: Hemoptysis hx of COPD hx of atrial fibrillation HTN GERD JORDAN DISCHARGE DIAGNOSES: Hemoptysis likely from tumor burden (L upper lobe) Pseudomonas pneumonia Chronic hypoxic respiratory failure hx of COVID-19 infection (11/2020) Chronic anemia (AOCD) hx of COPD Hx of L upper lobe non small cell lung cancer (dx 2018, mets to bone, s/p radiation, presently in chemo) Hx of PE Hx of scoliosis hx of chronic atrial fibrillation HTN GERD JORDAN COMPLICATIONS/CHIEF COMPLAINT: Hemoptysis,Lung Cancer,Pneumonia. HISTORY OF PRESENT ILLNESS: This is a 55 year old female with an unfortunate pmh of COPD, lung cancer with luis metastasis, PE, TIA, HTN, JORDAN and a-fib who presents to the ED today due to acute onset hemoptysis. Patient states that she has been dealing with a pneumonia that was diagnosed some time ago that has not gone away. Patient states that she saw her mission analyst, Dr. Garcia, yesterday who switched her abx to levoquin and she took her dose this morning. Patient states the reason she came to the ER was that she coughed up "about a cup" of blood and was concerned because she had never had hemoptysis to this scale before. Patient states that she does not have any acute onset associated chest pain, increased SOB, dizziness, lightheadedness, fevers, chills, nausea vomiting HOSPITAL COURSE: Hemoptysis - ongoing - likely due to bronchiectasis and pneumonia and stage 4 lung cancer in the back ground of being on xarelto - Continue cough suppressants, levofloxacin. - Right rib xray and right scapular xray unremarkable - CT chest on 02/08/21 looks slightly better than before . There is very significant disease on the left as before, Right is clean. Right side infiltrates have cleared. No effusion. - continuing to hold Xarelto - 2 units pRBC transfused due to worsening anemia - s/p bronchoscopy on 02/12/[address] Garcia. Noted a lung mass in L upper lobe - Dr. Allan (IR) was consulted, attempted emolization of bronchial arteries supplying L upper lobe, unfortunately wihtout success - D/w Dr. Garcia on 02/14/21, plan for transfer to [facility] ([place]), for interventional bronchoscopy with Dr. Germain. Patient accepted, awaiting bed. Pseudomonas pneumonia - right middle and right lower lobe and likely in the left upper lobe at the site of the mass - continue levofloxacin. acute on Chronic Anemia like due to chronic disease - worsened likely due to blood draws and hemoptysis. - received 2 units prbc. COPD exacerbation -resolved. -methyl pred stopped to reduce friability -nebs and inhalers held as they are triggering her cough. Left upper lobe Non small cell lung cancer diagnosed in 2018 with mets to bone s/p radiation, - undergoing chemotherapy History of small PE in 2018 diagnosed at the time of cancer diagnosis - bilateral LE venous duplex negative for DVT - holding xarelto due to active hemoptysis Chronic afib: - rate controlled - xarelto stopped due to hemoptysis - reduced diltiazem from 180 to 120 as bp is low. Once BP improves can go back to home dosage. - If pulse becomes uncontrolled and BP low may need an alternate med like digoxin. Chronic hypoxic respiratory failure continue oxygen GERD: On PPI. JORDAN: BMI of 34.4 complicating are. Hx of Covid in 11/2020. Scoliosis: Chronic. has Gonzalez chu. T8 chronic compression Dispo: pending clinical improvement. DISCHARGE MEDICATIONS: Please see below. ALLERGIES: Please see below. PHYSICAL EXAMINATION ON DISCHARGE: VITAL SIGNS: please see below General: NAD, comfortable HEENT: PERRLA, EOMI, sclerae clear Neck: supple, normal ROM, no JVD Respiratory: Reduced breath sounds L upper lobe. fair air entry at lung bases CVS: RRR, normal S1, S2, no murmurs Abdo: soft, no masses, no hepatosplenomegaly, BS+, no rebound tenderness Extremities: no edema, pulses 2+ MSK: no joint deformities, normal ROM Neuro: no focal neuro deficits, moving all 4 extremities, CN2-12 intact. S trength 5/5 in all 4 extremities. No nystagmus. Psych: calm, cooperative, AAO x 3 LABORATORY DATA: Please see below. IMAGING: CT angio chest 01/31/21: 1. Dense infiltrate/mass in the left upper lobe again redemonstrated associated with volume loss and air bronchograms. Findings consistent with known history of parenchymal malignancy and postobstructive change. 2. Patchy ground-glass opacities in the right middle and lower lobes may represent atelectasis although pneumonitis not excluded. 3. There is no aortic dissection or aneurysm. 4. There are no pulmonary emboli. Small branches of the pulmonary artery supplying the left upper lobe are narrowed likely related to regional tumoral encasement, findings stable. Chest CT (02/09/21): FINDINGS: There is collapse of the left upper lobe as previously. There are no enhancing masses within the collapsed left upper lobe. This is unchanged. No nodules or masses are seen in the remainder of the left lung or in the right lung. There are no infiltrates or effusions. There is no mediastinal or right hilar lymph node enlargement. The left hilus is obscured by the collapsed left upper lobe. There is no axillary lymphadenopathy. The thoracic aorta is unremarkable. Cardiac size is enlarged, unchanged. There is a small pericardial effusion versus pericardial thickening anteriorly inferiorly. Upper abdomen: There is no adrenal nodule or mass. The visualized areas of the liver, gallbladder, pancreas and spleen are unremarkable except for splenic calcified granulomas. There is no adrenal nodule or mass. There is a Bosniak type 1 cyst in the upper pole the right kidney approximately 1 cm in diameter. There is grade 3 wedge-shaped compression deformity of a midthoracic vertebral body with gibbus and thoracic spine stabilization rods. This is unchanged. IMPRESSION: No significant interval change. Chronically collapsed left upper lobe. No nodules or masses. No infiltrates or effusions. No adenopathy. Small pericardial effusion versus pericardial thickening anteriorly/inferiorly. Thoracic spine stabilization rods, wedge shaped compression deformity of a midthoracic vertebral body with gibbus, unchanged. Small focal pericardial effusion versus pericardial thickening anteriorly inferiorly. Bilateral Venous Duplex (02/09/21): No evidence of deep venous thrombosis of the bilateral lower extremity femoral popliteal venous system. CXR (02/12/21) FINDINGS: Right pleural effusion is unchanged. Large left lung mass is again noted unchanged. There is no pneumothorax. Visualized cardiomediastinal silhouette is unchanged. Thoracic spine metallic hardware is noted. A right central venous catheter is seen unchanged. IMPRESSION: No acute findings. PROGNOSIS: fair ACTIVITY: As tolerated DIET: regular DISCHARGE PLAN: transfer to [facility] ([place]), for evaluation by Interventional Bronchoscopist/Asset Protection Specialist. Accepted by Dr. Ramin Germain. DISPOSITION: transfer to [facility] DISCHARGE CONDITION: [Stable]. TIME SPENT ON DISCHARGE: 35 minutes Vital Signs/I&Os Vital Signs Date Time Temp Pulse Resp B/P (MAP) Pulse Ox O2 Delivery O2 Flow Rate FiO2 02/14/21 14:00 97.5 103 18 117/76 (90) 99 Nasal Cannula 2.0 02/10/21 10:30 21 I&O- Last 24 Hours up to 6 AM 02/14/21 06:00 Intake Total 1080 ml Output Total 0 ml Balance 1080 ml Laboratory Data Labs 24H Laboratory Tests 2 02/14/21 09:06: Immature Granulocyte % (Auto) 4.8H, Neutrophils (%) (Auto) 69.5H, Lymphocytes (%) (Auto) 10.8L, Monocytes (%) (Auto) 13.5H, Eosinophils (%) (Auto) 1.0, Basophils (%) (Auto) 0.4, Neutrophils # (Auto) 7.6, Lymphocytes # (Auto) 1.2L, Monocytes # (Auto) 1.5H, Eosinophils # (Auto) 0.1, Basophils # (Auto) 0.0, Nucleated Red Blood Cells % (auto) 0.0, Platelet Estimate NORMAL, Hypochromasia 1+, Anisocytosis 2+, Microcytosis 3+, Macrocytosis 2+, Tear Drop Cells 1+, Anion Gap 3L, Glomerular Filtration Rate > 60.0, Calcium Level 8.3L, Magnesium Level 1.5L, Total Bilirubin 0.5, Aspartate Amino Transf (AST/SGOT) 18, Alanine Aminotransferase (ALT/SGPT) 32, Alkaline Phosphatase 54, Total Protein 5.7L, Albumin 3.1L, Albumin/Globulin Ratio 1.2 CBC/BMP Laboratory Tests 02/14/21 09:06 Discharge Medications Scheduled Aspirin (Aspirin EC) 81 Mg Tablet.dr, 81 MG PO DAILY, (Reported) Diltiazem Hcl (Cardizem Cd) 120 Mg Cap.er.24h, 120 MG PO QHS Fluticasone/Vilanterol (Breo Ellipta 200-25 Mcg INH) 1 Each Blst.w.dev, 1 PUFF INH DAILY, (Reported) Folic Acid (Folic Acid) 0.4 Mg Tablet, 800 MCG PO DAILY, (Reported) Furosemide (Furosemide) 40 Mg Tablet, 40 MG PO DAILY Levofloxacin (Levofloxacin) 750 Mg Tablet, 750 MG PO DAILY@0600 Magnesium Oxide (Magnesium Oxide) 400 Mg Tablet, 400 MG PO QHS, (Reported) Nebivolol HCl (Bystolic) 5 Mg Tablet, 5 MG PO DAILY, (Reported) Pantoprazole Sodium (Pantoprazole Sodium) 40 Mg Tablet.dr, 40 MG PO DAILY Potassium Chloride (Potassium Chloride) 10 Meq Capsule.er, 10 MEQ PO 5XW, (Reported) MON, TUES, THURS, FRI, SAT Tiotropium [place] (Spiriva Respimat) 4 Gm Mist.inhal, 2 PUFFS INH DAILY, (Reported) Scheduled PRN Acetaminophen (Acetaminophen) 500 Mg Tablet, 1,000 MG PO Q8H PRN for PAIN, (Reported) Albuterol Sulf (Albuterol Sulfate) 2.5 Mg/3 Ml Vial.neb, 2.5 MG INH Q4H PRN for SHORTNESS OF BREATH, (Reported) Guaifenesin (Tussin) 100 Mg/5 Ml Liquid, 200 MG PO Q4H PRN for CONGESTION, (Reported) Loratadine (Loratadine) 10 Mg Tablet, 10 MG PO DAILY PRN for ALLERGIES, (Reported) Nystatin (Nystatin Oral Susp) 100,000 Unit/1 Ml Oral.susp, 5 ML SS QID PRN for THRUSH, (Reported) Oxycodone/Acetaminophen (Oxycodone-Acetaminophen 5-325) 1 Each Tablet, 2 TAB PO Q6HP PRN for MODERATE PAIN (PS 5-7) Allergies Coded Allergies: SEAFOOD (Verified Allergy, Severe, 02/03/18) pt. carries an epi pen Penicillins (Verified Allergy, Unknown, 01/27/19) OPAL CHEN MD Feb 14, 2021 17:07
[2021-02-14] MEDS: MAGNESIUM OXIDE 400MG TAB (MAG-OX) PO SCH (19:54)
[2021-02-15] VITALS (8 sets, daily range): BP systolic 97–103; BP diastolic 60–69
[2021-02-15] MEDS: ACETAMINOPHEN TAB 650MG DOSE (2X325MG) PO PRN (02:43)
[2021-02-15] MEDS: SLF 3 ML SYR IV SCH ×3 (06:29→21:39)
[2021-02-15] MEDS: LevoFLOXacin 750 MG TABLET PO SCH (06:29)
[2021-02-15] MEDS: PANTOPRAZOLE 40MG TAB (PROTONIX) PO SCH (08:22)
[2021-02-15] MEDS: FOLIC ACID 1 MG TAB PO SCH (08:22)
[2021-02-15] MEDS: DOCUSATE SODIUM 100MG CAPSULE PO SCH ×2 (08:22→21:38)
[2021-02-15] MEDS: NEBIVOLOL 5 MG TAB (BYSTOLIC) PO SCH (08:25)
[2021-02-15 09:09] LABS: BASO % 0.2 % (0.0-1.0); EOS # 0.1 10^3/uL (0.0-0.5); EOS % 1.3 % (0.0-3.0); HEMATOCRIT 23.8 % (36.0-47.0); HEMOGLOBIN 7.5 g/dl (12.0-15.5); LYMPH # 0.6 10^3/uL (1.5-5.0); LYMPH % 6.6 % (24.0-44.0); MEAN CORPUSCULAR HEMOGLOBIN 36.6 pg (27.0-33.0); MEAN CORPUSCULAR HGB CONC 31.5 g/dl (32.0-36.5); MONO # 1.3 10^3/uL (0.0-0.8); MONO % 14.1 % (2.0-8.0); NEUTROPHILS # 6.8 10^3/uL (1.5-8.5); NEUTROPHILS % 74.6 % (36.0-66.0); PLATELET COUNT, AUTOMATED 171 10^3/uL (150-450); RED BLOOD COUNT 2.05 10^6/uL (4.00-5.40); WHITE BLOOD COUNT 9.2 10^3/uL (4.0-10.0)
[2021-02-15 09:11] LABS: MEAN CORPUSCULAR VOLUME 116.1 fl (80.0-96.0)
[2021-02-15 09:24] LABS: ANISOCYTOSIS 2+
[2021-02-15 09:25] LABS: HYPOCHROMASIA 1+
[2021-02-15 09:26] LABS: MICROCYTOSIS 1+; PLATELET ESTIMATE NORMAL (NORMAL)
[2021-02-15 09:38] LABS: ALT/SGPT 30 U/L (12-78); BILIRUBIN,TOTAL 0.4 MG/DL (0.2-1.0); BLOOD UREA NITROGEN 9 MG/DL (7-18); CALCIUM LEVEL 8.8 MG/DL (8.5-10.1); CARBON DIOXIDE LEVEL 33 MEQ/L (21-32); CHLORIDE LEVEL 103 MEQ/L (98-107); GLOMERULAR FILTRATION RATE > 60.0 (>51); GLUCOSE, FASTING 116 MG/DL (70-100); MAGNESIUM LEVEL 1.5 MG/DL (1.8-2.4); POTASSIUM SERUM 3.7 MEQ/L (3.5-5.1); SODIUM LEVEL 139 MEQ/L (136-145); TOTAL PROTEIN 5.6 GM/DL (6.4-8.2)
--- NOTE | 2021-02-15 11:10 | IRPON ---
IR Postoperative Note Date Of Procedure: Feb 13, 2021 Time Of Procedure: 16:00 IR Postoperative Note IR Aortogram. IR Left subclavian artery angiogram. IR Moderate sedation Clinical Information:Left upper lobe cancer and chronic inflammation with ongoing hemoptysis. Bronchoscopy identified bleeding from the left upper lobe. Referred for possible bronchial artery embolization. Physician: Dr. Allan. Procedure: The patient was advised of the benefits, risks, and alternatives of the procedure and informed consent was obtained. A time out was performed with verification of the patient's name, MRN, site of procedure, and type of procedure to be performed. The patient was positioned in the supine position on the angiographic table. The site was prepped and draped in the usual sterile fashion. Moderate sedation was performed by the physician including the presence of an independent trained RN, who assisted in monitoring the patient's level of consciousness and physiological status. Following the administration of fentanyl and Versed, the physician spent 60 minutes of continuous [id number] time with the patient. A rn trauma radiograph reveals hardware in the spine. Right-sided chest port. Left lung opacification. Lidocaine was used for local anesthesia. The right common femoral artery was accessed with a microintroducer set. A short 0.018" [place] wire was inserted and the needle was exchanged for a 4 Fr microintroducer sheath. The guidewire and dilator were removed and a 0.035" [place] wire was advanced under fluoroscopy guidance and placed into the thoracic aorta. A 5 Fr sheath was placed over the wire. A 5 [place] pigtail catheter was then advanced over the wire under fluoroscopy guidance and used to catheterize the aortic arch. An aortogram was performed and this demonstrates unremarkable descending thoracic aorta. No enlarged bronchial arteries arising off the aorta. Unremarkable intercostal arteries are seen. Subclavian artery, internal mammary artery and thyrocervical branches are identified, none of which is offer parasitic hypervascular supply to the left upper lobe. The pigtail catheter was then exchanged over the wire for a 5 Albanian Mary Catheter. This was formed in the aortic arch and used under fluoroscopy guidance to try to catheterize any bronchial arteries. There is no bronchial artery hypertrophy, no bronchial artery could be canalized. The Mary catheter was exchanged over the wire for a Silvestre catheter. The Silvestre catheter was advanced over the wire and formed at the aortic bifurcation. The Silvestre catheter was also used under fluoroscopy guidance to try to catheterize any hypertrophied intercostal or bronchial supply from the descending aorta. After successful catheterization of a left upper thoracic intercostal artery, an arteriogram was performed. This demonstrates unremarkable left upper lobe intercostal artery with no parasitic supply to the tumor. The catheter, wire and sheath were removed, a 5 Albanian Mynx device was used to close the right groin arteriotomy. Pressure held and hemostasis achieved. A sterile dressing was applied to the site. The patient tolerated the procedure well and was returned to the PRU in stable condition. EBL: < 5 mL. Complications:None. Impression: 1. Aortogram demonstrates no hypertrophied bronchial arteries, hypertrophied intercostal arteries or parasitic supply from the subclavian, internal mammary or thyrocervical trunk to the left upper lung. 2. Not amenable to endovascular embolization. Thank you for this referral. Cc CATHERINE Liang MD Feb 15, 2021 11:10
--- NOTE | 2021-02-15 13:30 | IPNPDOC ---
Date Seen The patient was seen on 02/15/21. Progress Note SUBJECTIVE: Patient was seen and examined at bedside this morning. Has been having more hemoptysis overnight and this morning. Patient denies any weakness, fatigue, chest pain, shortness of breath. Hgb drop to 7.5. Will be starting blood transfusion today. OBJECTIVE PHYSICAL EXAMINATION: VITAL SIGNS: please see below General: NAD, comfortable HEENT: PERRLA, EOMI, sclerae clear Neck: supple, normal ROM, no JVD Respiratory: fair air entry bilaterally, mild wheeze in R middle and upper lobes CVS: RRR, normal S1, S2, no murmurs Abdo: soft, no masses, no hepatosplenomegaly, BS+, no rebound tenderness Extremities: no edema, pulses 2+ MSK: no joint deformities, normal ROM Neuro: no focal neuro deficits, moving all 4 extremities, CN2-12 intact. Strength 5/5 in all 4 extremities. No nystagmus. Psych: calm, cooperative, AAO x 3 LABORATORY DATA, IMAGING STUDIES, MICROBIOLOGY: Please see below. DVT prophylaxis ordered?: SCDs. TEDs. ASSESSMENT AND PLAN: 55-year-old female with history of left upper lobe lung cancer diagnosed in 2018 with mets to bone s/p radiation, undergoing chemother apy(last at start of 01/21), PE in 2017, COVID infection in Nov , bronchiectasis, COPD, Afib presented to the Emergency Room with ongoing hemoptysis taking Xarelto and aspirin. PROBLEMS: Hemoptysis - ongoing - likely due to bronchiectasis and pneumonia and stage 4 lung cancer in the back ground of being on xarelto - Continue cough suppressants, levofloxacin. - Right rib xray and right scapular xray unremarkable - CT chest on 02/08/21 looks slightly better than before . There is very significa nt disease on the left as before, Right is clean. Right side infiltrates have cleared. No effusion. - continuing to hold Xarelto - Hgb remains stable - s/p bronchoscopy on 02/12/[address] Garcia. Noted a lung mass in L upper lobe - Dr. Allan (IR) was consulted, attempted emolization of bronchial arteries supplying L upper lobe, unfortunately wihtout success - D/w Dr. Garcia on 02/14/21, plan for transfer to [facility] ([place]), for interventional bronchoscopy with Dr. Germain. Patient accepted, awaiting bed. Pseudomonas pneumonia - right middle and right lower lobe and likely in the left upper lobe at the site of the mass - continue levofloxacin. Acute blood loss anemia on chronic AOCD - hgb dropped from 8.3 to 7.5 this morning - transfuse 1 unit pRBC COPD exacerbation -resolved. -methyl pred stopped to reduce friability -nebs and inhalers held as they are triggering her cough. Left upper lobe Non small cell lung cancer diagnosed in 2018 with mets to bone s/p radiation, - undergoing chemotherapy History of small PE in 2018 diagnosed at the time of cancer diagnosis - bilateral LE venous duplex negative for DVT - holding xarelto due to active hemoptysis Chronic afib: - rate controlled - xarelto stopped due to hemoptysis - reduced diltiazem from 180 to 120 as bp is low. Once BP improves can go back to home dosage. - If pulse becomes uncontrolled and BP low may need an alternate med like digoxin. Chronic hypoxic respiratory failure continue oxygen GERD: On PPI. JORDAN: BMI of 34.4 complicating are. Hx of Covid in 11/2020. Scoliosis: Chronic. has Gonzalez chu. T8 chronic compression VS, I&O, 24H, Fishbone Vital Signs/I&O Vital Signs Date Time Temp Pulse Resp B/P (MAP) Pulse Ox O2 Delivery O2 Flow Rate FiO2 02/15/21 13:17 98.6 84 18 101/69 100 Nasal Cannula 2.0 02/10/21 10:30 21 I&O- Last 24 Hours up to 6 AM 02/15/21 06:00 Intake Total 1860 ml Output Total 0 ml Balance 1860 ml Laboratory Data 24H LABS Laboratory Tests 2 02/15/21 08:50: Immature Granulocyte % (Auto) 3.2H, Neutrophils (%) (Auto) 74.6H, Lymphocytes (%) (Auto) 6.6L, Monocytes (%) (Auto) 14.1H, Eosinophils (%) (Auto) 1.3, Basophils (%) (Auto) 0.2, Neutrophils # (Auto) 6.8, Lymphocytes # (Auto) 0.6L, Monocytes # (Auto) 1.3H, Eosinophils # (Auto) 0.1, Basophils # (Auto) 0.0, Nucleated Red Blood Cells % (auto) 0.0, Platelet Estimate NORMAL, Hypochromasia 1+, Anisocytosis 2+, Microcytosis 1+, Macrocytosis 3+, Anion Gap 3L, Glomerular Filtration Rate > 60.0, Calcium Level 8.8, Magnesium Level 1.5L, Total Bilirubin 0.4, Aspartate Amino Transf (AST/SGOT) 15, Alanine Aminotransferase (ALT/SGPT) 30, Alkaline Phosphatase 54, Total Protein 5.6L, Albumin 3.0L, Albumin/Globulin Ratio 1.2 CBC/BMP Laboratory Tests 02/15/21 08:50 OPAL CHEN MD Feb 15, 2021 13:30
[2021-02-15] MEDS: MOM 30ML SUSPENSION UDC PO PRN (15:48)
[2021-02-15] MEDS: ONDANSETRON 4MG/2ML VIAL IV PRN (17:29)
[2021-02-15 20:25] LABS: BASO % 0.2 % (0.0-1.0); EOS # 0.1 10^3/uL (0.0-0.5); HEMATOCRIT 26.8 % (36.0-47.0); HEMOGLOBIN 8.4 g/dl (12.0-15.5); LYMPH # 0.7 10^3/uL (1.5-5.0); LYMPH % 8.6 % (24.0-44.0); MEAN CORPUSCULAR HGB CONC 31.3 g/dl (32.0-36.5); MEAN CORPUSCULAR VOLUME 108.5 fl (80.0-96.0); MONO # 1.1 10^3/uL (0.0-0.8); MONO % 13.5 % (2.0-8.0); NEUTROPHILS # 5.9 10^3/uL (1.5-8.5); NEUTROPHILS % 72.7 % (36.0-66.0); PLATELET COUNT, AUTOMATED 137 10^3/uL (150-450); RED BLOOD COUNT 2.47 10^6/uL (4.00-5.40); WHITE BLOOD COUNT 8.1 10^3/uL (4.0-10.0)
[2021-02-15] MEDS: MAGNESIUM OXIDE 400MG TAB (MAG-OX) PO SCH (21:39)
[2021-02-15] MEDS: PERCOCET 5MG/325MG TAB PO PRN (21:41)
[2021-02-16 00:31] VITALS: O2SAT 100
[2021-02-16] MEDS: LevoFLOXacin 750 MG TABLET PO SCH (05:48)
[2021-02-16] MEDS: SLF 3 ML SYR IV SCH ×3 (05:49→20:39)
[2021-02-16 06:24] LABS: BASO % 0.5 % (0.0-1.0); EOS # 0.1 10^3/uL (0.0-0.5); EOS % 1.6 % (0.0-3.0); HEMATOCRIT 25.9 % (36.0-47.0); HEMOGLOBIN 8.4 g/dl (12.0-15.5); LYMPH # 0.6 10^3/uL (1.5-5.0); LYMPH % 9.4 % (24.0-44.0); MEAN CORPUSCULAR HEMOGLOBIN 35.4 pg (27.0-33.0); MEAN CORPUSCULAR HGB CONC 32.4 g/dl (32.0-36.5); MEAN CORPUSCULAR VOLUME 109.3 fl (80.0-96.0); MONO # 1.1 10^3/uL (0.0-0.8); MONO % 17.9 % (2.0-8.0); NEUTROPHILS # 4.1 10^3/uL (1.5-8.5); NEUTROPHILS % 66.7 % (36.0-66.0); PLATELET COUNT, AUTOMATED 144 10^3/uL (150-450); RED BLOOD COUNT 2.37 10^6/uL (4.00-5.40); WHITE BLOOD COUNT 6.2 10^3/uL (4.0-10.0)
[2021-02-16 06:38] LABS: BLOOD UREA NITROGEN 6 MG/DL (7-18); CALCIUM LEVEL 8.1 MG/DL (8.5-10.1); CARBON DIOXIDE LEVEL 36 MEQ/L (21-32); CHLORIDE LEVEL 104 MEQ/L (98-107); GLOMERULAR FILTRATION RATE > 60.0 (>51); GLUCOSE, FASTING 92 MG/DL (70-100); MAGNESIUM LEVEL 1.7 MG/DL (1.8-2.4); POTASSIUM SERUM 3.8 MEQ/L (3.5-5.1); SODIUM LEVEL 143 MEQ/L (136-145)
[2021-02-16 06:51] VITALS: BP 108/70
[2021-02-16] MEDS: MAG SULF 1GM/100ML (MAG RUN) 1 GM in IV 1 EA IV SCH ×2 (08:03→09:56)
[2021-02-16] MEDS: DOCUSATE SODIUM 100MG CAPSULE PO SCH ×2 (08:03→20:37)
[2021-02-16] MEDS: FOLIC ACID 1 MG TAB PO SCH (08:04)
[2021-02-16] MEDS: PANTOPRAZOLE 40MG TAB (PROTONIX) PO SCH (08:04)
[2021-02-16] MEDS: NEBIVOLOL 5 MG TAB (BYSTOLIC) PO SCH (08:04)
[2021-02-16] MEDS: ONDANSETRON 4MG/2ML VIAL IV PRN (08:45)
[2021-02-16] MEDS: MOM 30ML SUSPENSION UDC PO PRN (10:14)
[2021-02-16] MEDS: ADVAIR HFA 230/21MCG INHALER INH SCH ×2 (12:39→20:00)
[2021-02-16] MEDS: FUROSEMIDE 40 MG TAB PO SCH (13:13)
--- NOTE | 2021-02-16 13:56 | IPN ---
PROGRESS NOTE DATE: 02/16/2021 SUBJECTIVE: Patient was seen and examined this morning during bedside rounds. Overnight, the patient states she did have one episode of cough with a larger volume of hemoptysis about 3/4 of a cup. This morning she has had only occasional cough with more blood clot in her sputum rather than the verna hemoptysis that she had overnight. She otherwise denies any chest pain. No worsening shortness of breath. She does have some wheezing at times. She does have nebulized bronchodilators ordered which she has been getting as needed as she does find the nebulizer treatments will trigger some coughing and hemoptysis for her. Yesterday, the patient had been given one unit transfusion with appropriate response. This morning she is noticing some increasing lower extremity edema. OBJECTIVE: VITAL SIGNS: Temperature is 97.6, pulse is 88, respirations are 19, blood pressure is 108/70. O2 sat is 99% on 2 liters nasal cannula. GENERAL: Patient is sitting in the chair. She is awake, alert, and oriented, in no acute distress. She is able to speak in complete sentences is not using any accessory muscles for respiration. HEENT: Normocephalic, atraumatic. Moist mucous membranes noted. NECK: Supple. Trachea is midline. CARDIAC: Regular rate and rhythm. Normal S1 and S2 without any appreciable murmurs. PULMONARY: There is diminished breath sounds at the left base with some coarse wheeze on the left and some more faint expiratory wheezes and occasional rhonchi on the right. ABDOMEN: Obese, soft, nontender and nondistended. EXTREMITIES: There is increasing +1 to 2 pitting edema of the bilateral lower extremities with some venous stasis skin changes. LABORATORY DATA: WBC 6.2, hemoglobin is 8.4, platelets are 144,000. Chemistries: Sodium 143, potassium is 3.8, chloride is 104, bicarbonate is 36, BUN is 6, creatinine 0.80. Glucose is 92. Pathology from the left lobe upper endobronchial biopsy showed fragments of squamous epithelial cells with mild atypia in the background of predominately necroinflammatory material. There is no definite malignancy identified. ASSESSMENT AND PLAN: Ms. Hurst is a 55-year-old female with a past medical history of left upper lobe lung cancer with metastatic disease. History of COPD with bronchiectasis, prior history of PE and atrial fibrillation on anticoagulation, who presented initially with episodes of hemoptysis. The patient had been noted to have pseudomonas in her sputum as an outpatient and was being treated with outpatient antibiotics. During her admission here, she was noted to have worsening hemoptysis likely in the setting of infection as well as being on anticoagulation with the possibility of tumor as well causing bleeding. Patient did have a bronchoscopy on 02/12/21 which did show some endobronchial lesions in the left upper lobe and lingula. The biopsy results were negative for malignancy but there were some squamous atypia and necroinflammatory changes. Given her persistent hemoptysis, patient was evaluated by IR for the possibility of IR embolization. There did not appear to be any vascular targets for endovascular embolization as per IR. The patient, however continues to have significant episodes of hemoptysis, almost cupfuls at times and so interventional pulmonary at [facility] was contacted and consulted and she accepted for transfer there for further intervention. Patient is awaiting a bed still at [facility]. The patient will be continued on Levaquin for antibiotics and will continue to hold her anticoagulation on Xarelto. Will continue with cough suppressants as needed and will continue with nebulized bronchodilators p.r.n. particularly if they do cause her to have increasing cough and hemoptysis. Will trial the patient on restarting her home ICS/LABA inhaler particularly as her steroids have been discontinued. If she is having coughing with the inhalers, then they will be held as well. The patient initially had been on Solu-Medrol which was then discontinued due to concern for endobronchial mucosal friability and bleeding. Will continue nasal cannula oxygen supplementation and close monitoring of her hemoptysis output. If the patient is having difficulty protecting or maintaining her airway, then she may require endotracheal intubation. The patient did have anemia and was transfused 1 unit of PRBC. She does appear to have some increasing lower extremity edema and she is on Lasix chronically as a home medication which had been on hold. We will restart her home Lasix at 40 mg p.o. daily. continue to monitor and transfuse as needed GI prophylaxis: PPI. DVT prophylaxis: TEDs and SCDs. Code status: Full code. MTDD
[2021-02-16 14:00] VITALS: BP 102/66
--- NOTE | 2021-02-16 14:14 | IPNPDOC ---
Date Seen The patient was seen on 02/16/21. Progress Note SUBJECTIVE: Patient was seen and examined at bedside this morning. Has been having more hemoptysis overnight and this morning, approximately 3/4 cup. Patient denies any weakness, fatigue, chest pain, shortness of breath. OBJECTIVE PHYSICAL EXAMINATION: VITAL SIGNS: please see below General: NAD, comfortable HEENT: PERRLA, EOMI, sclerae clear Neck: supple, normal ROM, no JVD Respiratory: fair air entry bilaterally, mild wheeze in R middle and upper lobes CVS: RRR, normal S1, S2, no murmurs Abdo: soft, no masses, no hepatosplenomegaly, BS+, no rebound tenderness Extremities: no edema, pulses 2+ MSK: no joint deformities, normal ROM Neuro: no focal neuro deficits, moving all 4 extremities, CN2-12 intact. Strength 5/5 in all 4 extremities. No nystagmus. Psych: calm, cooperative, AAO x 3 LABORATORY DATA, IMAGING STUDIES, MICROBIOLOGY: Please see below. DVT prophylaxis ordered?: SCDs. TEDs. ASSESSMENT AND PLAN: 55-year-old female with history of left upper lobe lung cancer diagnosed in 2018 with mets to bone s/p radiation, undergoing chemotherapy(last at start of 01/21), PE in 2018, COVID infection in Nov , bronchiectasis, COPD, Afib presented to the Emergency Room with ongoing hemoptysis taking Xarelto and aspirin. PROBLEMS: Hemoptysis - ongoing - likely due to bronchiectasis and pneumonia and stage 4 lung cancer in the back ground of being on xarelto - Continue cough suppressants, levofloxacin. - Right rib xray and right scapular xray unremarkable - CT chest on 02/08/21 looks slightly better than before . There is very significant disease on the left as before, Right is clean. Right side infiltrates have cleared. No effusion. - continuing to hold Xarelto - Hgb remains stable - s/p bronchoscopy on 02/12/[address] Garcia. Noted a lung mass in L upper lobe - Dr. Allan (IR) was consulted, attempted emolization of bronchial arteries supplying L upper lobe, unfortunately wihtout success - D/w Dr. Garcia on 02/14/21, plan for transfer to [facility] ([place]), for interventional bronchoscopy with Dr. Germain. Patient accepted, awaiting bed. Pseudomonas pneumonia - right middle and right lower lobe and likely in the left upper lobe at the site of the mass - continue levofloxacin. Acute blood loss anemia on chronic AOCD - hgb dropped from 8.3 to 7.5 - transfused 1 unit pRBC COPD exacerbation -resolved. -methyl pred stopped to reduce friability -nebs and inhalers resumed today by pulmonology service -monitor for cough, will hold if exacerbates hemoptysis Left upper lobe Non small cell lung cancer diagnosed in 2018 with mets to bone s/p radiation, - undergoing chemotherapy History of small PE in 2018 diagnosed at the time of cancer diagnosis - bilateral LE venous duplex negative for DVT - holding xarelto due to active hemoptysis Edema - resume home dose lasix Chronic afib: - rate controlled - xarelto stopped due to hemoptysis - reduced diltiazem from 180 to 120 as bp is low. Once BP improves can go back to home dosage. - If pulse becomes uncontrolled and BP low may need an alternate med like digoxin. Chronic hypoxic respiratory failure continue oxygen GERD: On PPI. JORDAN: BMI of 34.4 complicating are. Hx of Covid in 11/2020. Scoliosis: Chronic. has Gonzalez chu. T8 chronic compression VS, I&O, 24H, Fishbone Vital Signs/I&O Vital Signs Date Time Temp Pulse Resp B/P (MAP) Pulse Ox O2 Delivery O2 Flow Rate FiO2 02/16/21 08:15 2.0 02/16/21 08:04 88 108/70 02/16/21 06:51 97.6 19 99 Nasal Cannula 02/10/21 10:30 21 I&O- Last 24 Hours up to 6 AM 02/16/21 06:00 Intake Total 1545 ml Output Total 0 ml Balance 1545 ml Laboratory Data 24H LABS Laboratory Tests 2 02/15/21 20:18: Immature Granulocyte % (Auto) 4.0H, Neutrophils (%) (Auto) 72.7H, Lymphocytes (%) (Auto) 8.6L, Monocytes (%) (Auto) 13.5H, Eosinophils (%) (Auto) 1.0, Basophils (%) (Auto) 0.2, Neutrophils # (Auto) 5.9, Lymphocytes # (Auto) 0.7L, Monocytes # (Auto) 1.1H, Eosinophils # (Auto) 0.1, Basophils # (Auto) 0.0, Nucleated Red Blood Cells % (auto) 0.0 02/16/21 05:49: Immature Granulocyte % (Auto) 3.9H, Neutrophils (%) (Auto) 66.7H, Lymphocytes (%) (Auto) 9.4L, Monocytes (%) (Auto) 17.9H, Eosinophils (%) (Auto) 1.6, Basophils (%) (Auto) 0.5, Neutrophils # (Auto) 4.1, Lymphocytes # (Auto) 0.6L, Monocytes # (Auto) 1.1H, Eosinophils # (Auto) 0.1, Basophils # (Auto) 0.0, Nucleated Red Blood Cells % (auto) 0.0, Anion Gap 3L, Glomerular Filtration Rate > 60.0, Calcium Level 8.1L, Magnesium Level 1.7L CBC/BMP Laboratory Tests 02/15/21 20:18 02/16/21 05:49 OPAL CHEN MD Feb 16, 2021 14:14
[2021-02-16] MEDS ORDERED: FLEET ENEMA PR PRN (15:15)
[2021-02-16] MEDS: MAGNESIUM OXIDE 400MG TAB (MAG-OX) PO SCH (20:38)
[2021-02-16] MEDS: PERCOCET 5MG/325MG TAB PO PRN (20:38)
[2021-02-16 21:00] VITALS: O2SAT 100
[2021-02-16 22:00] VITALS: BP 102/66
[2021-02-17] MEDS: LevoFLOXacin 750 MG TABLET PO SCH (05:38)
[2021-02-17] MEDS: SLF 3 ML SYR IV SCH ×2 (05:39→14:00)
[2021-02-17 06:00] VITALS: BP 118/76
[2021-02-17] MEDS: ADVAIR HFA 230/21MCG INHALER INH SCH (08:00)
[2021-02-17 08:14] LABS: BASO % 0.2 % (0.0-1.0); EOS # 0.1 10^3/uL (0.0-0.5); EOS % 1.5 % (0.0-3.0); LYMPH # 0.6 10^3/uL (1.5-5.0); LYMPH % 10.2 % (24.0-44.0); MEAN CORPUSCULAR HEMOGLOBIN 33.8 pg (27.0-33.0); MEAN CORPUSCULAR HGB CONC 30.8 g/dl (32.0-36.5); MEAN CORPUSCULAR VOLUME 109.7 fl (80.0-96.0); MONO # 1.1 10^3/uL (0.0-0.8); MONO % 18.1 % (2.0-8.0); NEUTROPHILS % 67.7 % (36.0-66.0); PLATELET COUNT, AUTOMATED 151 10^3/uL (150-450); RED BLOOD COUNT 2.37 10^6/uL (4.00-5.40)
[2021-02-17 08:27] LABS: BLOOD UREA NITROGEN 6 MG/DL (7-18); CALCIUM LEVEL 8.4 MG/DL (8.5-10.1); CARBON DIOXIDE LEVEL 39 MEQ/L (21-32); CHLORIDE LEVEL 101 MEQ/L (98-107); CREATININE FOR GFR 0.79 MG/DL (0.55-1.30); GLOMERULAR FILTRATION RATE > 60.0 (>51); GLUCOSE, FASTING 81 MG/DL (70-100); POTASSIUM SERUM 4.2 MEQ/L (3.5-5.1); SODIUM LEVEL 143 MEQ/L (136-145)
[2021-02-17 08:53] VITALS: BP 118/76
[2021-02-17] MEDS: NEBIVOLOL 5 MG TAB (BYSTOLIC) PO SCH (08:53)
[2021-02-17] MEDS: ACETAMINOPHEN TAB 650MG DOSE (2X325MG) PO PRN (08:53)
[2021-02-17] MEDS: PANTOPRAZOLE 40MG TAB (PROTONIX) PO SCH (08:53)
[2021-02-17] MEDS: FOLIC ACID 1 MG TAB PO SCH (08:53)
[2021-02-17] MEDS: DOCUSATE SODIUM 100MG CAPSULE PO SCH (08:53)
[2021-02-17] MEDS: FUROSEMIDE 40 MG TAB PO SCH (08:53)
[2021-02-17] MEDS: ONDANSETRON 4MG/2ML VIAL IV PRN (08:59)
--- NOTE | 2021-02-17 10:46 | IPNPDOC ---
Date Seen The patient was seen on 02/17/21. Progress Note SUBJECTIVE: Patient was seen and examined at bedside this morning. She is comfortable in bed. Ongoing hemoptysis, but less severe than the prior night, now ~1/4-1/2 cup. SOB mild. No chest pain. She is complaining of mild posterior neck pain. OBJECTIVE PHYSICAL EXAMINATION: VITAL SIGNS: please see below General: NAD, comfortable HEENT: PERRLA, EOMI, sclerae clear Neck: supple, normal ROM, no JVD Respiratory: reduced air entry at L middle and upper lobes with rhonchi. No wheeze. Fair air entry the bilateral lung bases. CVS: RRR, normal S1, S2, no murmurs Abdo: soft, no masses, no hepatosplenomegaly, BS+, no rebound tenderness Extremities: no edema, pulses 2+ MSK: no joint deformities, normal ROM. Negative Spurling sigh. No neck point tenderness. Neuro: no focal neuro deficits, moving all 4 extremities, CN2-12 intact. Strength 5/5 in all 4 extremities. No nystagmus. Psych: calm, cooperative, AAO x 3 LABORATORY DATA, IMAGING STUDIES, MICROBIOLOGY: Please see below. DVT prophylaxis ordered?: SCDs. TEDs. ASSESSMENT AND PLAN: 55-year-old female with history of left upper lobe lung cancer diagnosed in 2018 with mets to bone s/p radiation, undergoing chemotherapy(last at start of 01/21), PE in 2017, COVID infection in Nov , bronchiectasis, COPD, Afib presented to the Emergency Room with ongoing hemoptysis taking Xarelto and aspirin, which are being held in hospital. Patient underwent bronchoscopy which revealed mass in [place], with subsequent attempt at IR artery embolization without successfully identified targets. Given active hemoptysis, patient is awaiting transfer to [facility] ([place]) for evaluation by interventional bronchoscopist. PROBLEMS: Hemoptysis - ongoing - likely due to bronchiectasis and pneumonia and stage 4 lung cancer in the back ground of being on xarelto - Continue cough suppressants, levofloxacin. - Right rib xray and right scapular xray unremarkable - CT chest on 02/08/21 looks slightly better than before . There is very significant disease on the left as before, Right is clean. Right side infiltrates have cleared. No effusion. - continuing to hold Xarelto - Hgb remains stable - s/p bronchoscopy on 02/12/[address] Garcia. Noted a lung mass in L upper lobe - pathology report indicating no definitive malignancy but presents of squamous atypical cells and necroinflammatory changes - Dr. Allan (IR) was consulted, attempted embolization of bronchial arteries to [place], but no vascular targets were identified. - D/w Dr. Garcia on 02/14/21, plan for transfer to [facility] ([place]), for interventional bronchoscopy with Dr. Germain. Patient accepted, awaiting bed. Pseudomonas pneumonia - right middle and right lower lobe and likely in the left upper lobe at the site of the mass - continue levofloxacin. Acute blood loss anemia on chronic AOCD - transfusing for Hgb < 8. S/p 1 unit - additional unit ordered on 02/17/21. COPD exacerbation -resolved. -methyl pred stopped to reduce friability -nebs and inhalers resumed today by pulmonology service -monitor for cough, will hold if exacerbates hemoptysis Left upper lobe Non small cell lung cancer diagnosed in 2018 with mets to bone s/p radiation, - undergoing chemotherapy History of small PE in 2018 diagnosed at the time of cancer diagnosis - bilateral LE venous duplex negative for DVT - holding xarelto due to active hemoptysis Edema - resume home dose lasix Chronic afib: - rate controlled - xarelto stopped due to hemoptysis - reduced diltiazem from 180 to 120 as bp is low. Once BP improves can go back to home dosage. - If pulse becomes uncontrolled and BP low may need an alternate med like digoxin. Chronic hypoxic respiratory failure continue oxygen GERD: On PPI. JORDAN: BMI of 34.4 complicating are. Hx of Covid in 11/2020. Scoliosis: Chronic. has Gonzalez chu. T8 chronic compression DVT ppx: presently eliquis (and ASA) are held. TEDs. Encourage ambulation. VS, I&O, 24H, Fishbone Vital Signs/I&O Vital Signs Date Time Temp Pulse Resp B/P (MAP) Pulse Ox O2 Delivery O2 Flow Rate FiO2 02/17/21 08:53 96 118/76 02/17/21 06:00 97.7 19 99 Nasal Cannula 2.0 I&O- Last 24 Hours up to 6 AM 02/17/21 06:00 Intake Total 1620 ml Output Total 0 ml Balance 1620 ml Laboratory Data 24H LABS Laboratory Tests 2 02/17/21 07:16: Immature Granulocyte % (Auto) 2.3, Neutrophils (%) (Auto) 67.7H, Lymphocytes (%) (Auto) 10.2L, Monocytes (%) (Auto) 18.1H, Eosinophils (%) (Auto) 1.5, Basophils (%) (Auto) 0.2, Neutrophils # (Auto) 4.0, Lymphocytes # (Auto) 0.6L, Monocytes # (Auto) 1.1H, Eosinophils # (Auto) 0.1, Basophils # (Auto) 0.0, Nucleated Red Blood Cells % (auto) 0.0, Anion Gap 3L, Glomerular Filtration Rate > 60.0, Calcium Level 8.4L, Magnesium Level 2.0 CBC/BMP Laboratory Tests 02/17/21 07:16 OPAL CHEN MD Feb 17, 2021 10:46
--- NOTE | 2021-02-17 12:43 | IPN ---
PULMONARY PROGRESS NOTE DATE: 02/17/2021 SUBJECTIVE: Patient was seen and examined this morning during bedside rounds. Overnight, patient only had a few episodes of cough with small clots of blood in her sputum. She did not have the larger volume of hemoptysis that she had the other evening. This morning, she denies any worsening shortness of breath or dyspnea. She does have some occasional wheezing at times. She has not had any fevers or chills. She is reporting some nausea and headache. She did receive Tylenol and Zofran. She has not had any vomiting. OBJECTIVE: VITAL SIGNS: Temperature 97.7, pulse 96, respiratory rate 19, blood pressure 119/76, oxygen saturation 99% on 2 liters nasal cannula. GENERAL: Patient is lying in the bed. She is awake, alert and oriented times three. She is in no acute distress and is able to speak in complete sentences with no accessory muscle use of respiration. HEENT: Normocephalic, atraumatic. Moist mucous membranes noted. NECK: Supple. Trachea is midline. CARDIAC: Regular rate and rhythm. Normal S1, S2 without any appreciable murmurs. PULMONARY: There is increased rhonchi noted on the left side with some expiratory wheeze and occasional rhonchi on the right. ABDOMEN: Obese. Soft, nontender, nondistended. EXTREMITIES: There is 1+ pitting edema in the bilateral lower extremities with venous stasis skin changes. LABORATORY STUDIES: WBC 6.0, hemoglobin 8.0, platelets 151. Chemistry: Sodium 143, potassium 4.2, chloride 101, bicarbonate 39, BUN 6, creatinine 0.79, glucose 81. ASSESSMENT AND PLAN: Ms. Hurst is a 55-year-old female with a past medical history of left upper lobe cancer with metastases status post radiation and chemotherapy, history of chronic obstructive pulmonary disease (COPD) with bronchiectasis, prior history of pulmonary embolism and atrial fibrillation on anticoagulation who presented with episode of hemoptysis. Patient had been treated for pneumonia as an outpatient with pseudomonas in her sputum. She developed worsening hemoptysis, however, and so had presented to the hospital. Here she did have a bronchoscopy on 02/12/2021 which showed endobronchial lesions in the left upper lobe and lingula. The biopsy results were negative for malignancy, but there were some squamous atypia and necroinflammatory changes. Given the persistent hemoptysis with some fairly large volume, she was evaluated by interventional radiology (IR) for the possibility of IR embolization, which did not appear to have any vascular targets for endovascular embolization as per IR. Patient continued to have episodes of hemoptysis, occasionally larger volume, and so interventional pulmonology at [facility] was contacted and consulted and she was accepted for transfer there. She is still awaiting a bed at [facility] in [facility]. We will continue patient on Levaquin for antibiotics. She will need a prolonged course given the pseudomonas in her sputum and with her underlying lung disease. We will continue anticoagulation. We will continue cough suppressants as needed and continue with her nebulized bronchodilators as needed, particularly as they do cause her to cough at times and hemoptysis. Patient will retry starting her home inhaled corticosteroid/long-acting beta2-agonist (ICS/LABA) inhaler, particularly as she is off steroids now and is not on her usual nebulized bronchodilators. If she does have coughing with her inhalers, then she will hold that medication as well. Patient initially had been on steroids, which were then been discontinued due to concern for mucosal friability and bleeding. We will continue to monitor her off of steroids at this time. Continue nasal cannula oxygen supplementation on her home amount and maintain her oxygen saturation above 90%. We will continue to monitor the amount of hemoptysis. If she does have worsening hemoptysis and difficulty protecting or maintaining her airway, then she may require intubation and repeat bronchoscopy. Patient was restarted on her home Lasix yesterday due to increased lower extremity edema. She did appear to have increased lower extremity edema and she is on Lasix chronically at home. She was started on 40 mg by mouth daily. Gastrointestinal (GI) prophylaxis: Proton pump inhibitors. Deep venous thrombosis (DVT) prophylaxis: Thromboembolism deterrents (TEDs) and sequential compression devices (SCDs). CODE STATUS: FULL CODE.
[2021-02-17 14:00] VITALS: BP 102/60
[2021-02-17] MEDS ORDERED: PANT40TA29 PO (16:18)
[2021-02-17] MEDS ORDERED: LEVO750T13 PO (16:18)
[2021-02-17] MEDS ORDERED: CARD120C3 PO (16:18)
[2021-02-17] MEDS ORDERED: FURO40TA2 PO (16:18)
[2021-02-17] MEDS ORDERED: PERCOCET PO (16:18)
== END 2021-02-17 16:30 | disposition short-term general hospital (02) | DRG 136 ==
LOC: M ED 19:12 → M ED INP 19:13 → M PCU 02-01 00:26 → OBSVTOIN 02-02 09:38 → M MS5PR 02-02 16:50
PROVIDERS: ADMIT Family Medicine; ATTEND Family Medicine
PROC: 30233N1 Transfusion of Nonautologous Red Blood Cells into Peripheral Vein, Percutaneous Approach (ICD-10-PCS; 2021-02-02)
PROC: 0BBG8ZX Excision of Left Upper Lung Lobe, Via Natural or Artificial Opening Endoscopic, Diagnostic (ICD-10-PCS; principal; 2021-02-12 12:00)
PROC: B310YZZ Fluoroscopy of Thoracic Aorta using Other Contrast (ICD-10-PCS; 2021-02-13)
PROC: B312YZZ Fluoroscopy of Left Subclavian Artery using Other Contrast (ICD-10-PCS; 2021-02-13)
DX: C34.12 Malignant neoplasm of upper lobe, left bronchus or lung (principal); J15.1 Pneumonia due to Pseudomonas; C79.51 Secondary malignant neoplasm of bone; D68.32 Hemorrhagic disorder due to extrinsic circulating anticoagulants; M41.9 Scoliosis, unspecified; J44.0 Chronic obstructive pulmonary disease with (acute) lower respiratory infection; J96.11 Chronic respiratory failure with hypoxia; R04.2 Hemoptysis; I48.20 Chronic atrial fibrillation, unspecified; J44.1 Chronic obstructive pulmonary disease with (acute) exacerbation; D62 Acute posthemorrhagic anemia; I10 Essential (primary) hypertension; G47.33 Obstructive sleep apnea (adult) (pediatric); K21.9 Gastro-esophageal reflux disease without esophagitis; Z88.0 Allergy status to penicillin; Z91.013 Allergy to seafood; Z92.3 Personal history of irradiation; Z86.711 Personal history of pulmonary embolism; Z79.82 Long term (current) use of aspirin; Z86.16 Personal history of COVID-19; Z79.01 Long term (current) use of anticoagulants; Z79.899 Other long term (current) drug therapy

== ENCOUNTER → 2021-03-26 | Outpatient (CLI) | payer BC, MEDICARE ==
[~2021-03-26] MED LIST changes: +BREO1INH3 PO; +CARD120C3 PO; +COVI100V IM; +CVS100LI4 PO; +FURO40TA2 PO; +LEVO750T13 PO; +LORA-674 PO; +MAGN400T2 PO; +NYST50SS SS; +PERCOCET PO; +SPIR12.9 INH; +levaquin PO
--- NOTE | 2021-03-26 14:27 | REP ---
INDICATION: PERSONAL HISTORY OF MALIGNANT NEOPLASM OF BRONCHUS AND LUNG COMPARISON: 01/13/2021 TECHNIQUE: PA and lateral. FINDINGS: Left upper lobe mass and associated parenchymal disease is similar to prior examination. Bibasilar opacities are similar to prior examination and likely chronic. [id number] identified with tip in the SVC. Gonzalez rods through the thoracic spine again noted. IMPRESSION: Lung patterson are similar to prior examination as described above. Subtle superimposed basilar atelectasis and pleural reactions cannot definitively be excluded. <Electronically signed by Timmy Jain > 03/26/21 [id number]
== END ==
LOC: M LAB 14:00
PROVIDERS: ATTEND Internal Medicine Pulmonary Disease
DX: R91.8 Other nonspecific abnormal finding of lung field (principal); R05 Cough; Z85.118 Personal history of other malignant neoplasm of bronchus and lung

== ENCOUNTER → 2021-04-06 | Outpatient (REF) | payer BC, MEDICARE | LOC: M LAB REF 17:20 | PROVIDERS: ATTEND Internal Medicine Nephrology | DX: I50.22 Chronic systolic (congestive) heart failure (principal) ==

== ENCOUNTER → 2021-04-09 | Outpatient (CLI) | payer BC, MEDICARE ==
--- NOTE | 2021-04-10 10:30 | REP ---
INDICATION: RESTAGING HISTORY OF LUNG CANCER Z85.118. COMPARISON: Multiple the latest prior PET-CT 10/10/2020 and the latest prior CT examination of the chest of 02/08/2021 TECHNIQUE: After the intravenous administration of 9.91 mCi of FDG 18 triplane whole-body PET-CT was performed from the skull base to the mid thigh. FINDINGS: Scattered areas of hypermetabolic activity are again seen in the left hemithorax status quo. There is a focus of hypermetabolic activity seen in the left posterior hip region gluteus bridger muscle with a maximal SUV value of 5.58. This is near the trochanteric tendono bursal region and although present on the prior examination this has increased slightly in its activity. Hypermetabolic activity seen in the bony symphysis pubis on both sides with a maximal SUV value of 5.57. There are no new areas of abnormal hypermetabolic activity seen in the neck, chest, or abdomen. There is a slight pericardial effusion which may have increased slightly from the prior exam. IMPRESSION: The examination has changed little compared to the prior PET-CT with the exception of bony activity seen in the symphysis pubis as described above. The exact etiology for this increased bony activity is uncertain. It needs to be correlated clinically with appropriate follow-up. Other findings as described above. <Electronically signed by Pedro Pablo Simomns > 04/10/21 [id number]
== END ==
LOC: M PLARAD 11:03
PROVIDERS: ATTEND Internal Medicine Pulmonary Disease
DX: Z85.118 Personal history of other malignant neoplasm of bronchus and lung (principal)
CPT/HCPCS: 78815; A9552

== ENCOUNTER → 2021-04-30 | Outpatient (REF) | payer BC, MEDICARE ==
[~2021-04-30] MED LIST changes: -DOXY100C37 PO; +DOXY1CAP62 PO; +DRON400T PO; +LEVO500T3 PO; +METO25TA4 PO
== END ==
LOC: M LAB REF 17:14
PROVIDERS: ATTEND Internal Medicine Pulmonary Disease
DX: J47.1 Bronchiectasis with (acute) exacerbation (principal)

== ENCOUNTER → 2021-05-23 | Outpatient (REF) | payer BC, MEDICARE | LOC: M LAB REF 13:07 | PROVIDERS: ATTEND Internal Medicine Pulmonary Disease | DX: R91.8 Other nonspecific abnormal finding of lung field (principal) ==

== ENCOUNTER → 2021-06-01 | Outpatient (CLI) | payer BC, MEDICARE ==
[~2021-06-01] MED LIST changes: +HYDR25OIN TOP
--- NOTE | 2021-06-01 15:17 | REPVR ---
PROCEDURE INFORMATION: Exam: MR Head Without and With Contrast Exam date and time: 06/01/2021 9:42 AM Age: 56 years old Clinical indication: Condition or disease; History of cancer (specify primary cancer site): ; Patient HX: HX lung CA TECHNIQUE: Imaging protocol: MR of the head without and with intravenous contrast. Contrast material: PROHANCE; Contrast volume: 15 ml; Contrast route: INTRAVENOUS (IV); COMPARISON: MRI-Brain W/O FOLL BY WITH 01/14/2020 10:58 AM FINDINGS: Brain: Normal. No acute infarct. No hemorrhage. No significant white matter disease. No edema. Cerebral ventricles: Normal. No ventriculomegaly. Bones/joints: Unremarkable. Paranasal sinuses: Normal as visualized. No acute sinusitis. Mastoid air cells: Normal as visualized. No mastoid effusion. Internal auditory canals: There is moderate right-sided mastoiditis and middle ear disease, not fully characterized on this exam. Orbital cavity: Unremarkable. Soft tissues: Unremarkable. IMPRESSION: 1. No acute intracranial findings identified. No evidence of metastatic disease. Please refer to incidental findings in body of report. 2. There is moderate right-sided mastoiditis and middle ear disease, not fully characterized on this exam. Electronically signed by: Jaime Coy On 06/01/2021 15:16:25 PM
== END ==
LOC: M PLARAD 07:56
PROVIDERS: ATTEND Internal Medicine Medical Oncology
DX: C34.00 Malignant neoplasm of unspecified main bronchus (principal); H70.91 Unspecified mastoiditis, right ear

== ENCOUNTER → 2021-06-05 | Outpatient (CLI) | payer BC, MEDICARE ==
[~2021-06-05] MED LIST changes: -CEFD1CAP8 PO; +CEFD300C41 PO; -CLIN150C15 PO; +CLIN150C17 PO; +DEXA4TA PO; +DILT180C70 PO; +DILT30TA PO; +DOXY-443 PO; -DOXY1CAP62 PO; +ELIQ5TAB PO; -FLUC150T PO; +FLUC150T9 PO; +GASTROGRAFIN SOLUTION 30ML (Q9963) As Ordered ONE; +ISOVUE-370 76% 100ML VIAL As Ordered ONE; -LEVO500T3 PO; +LEVO500T4 PO; +LOSA50TA28 PO; -LOSA50TA88 PO; +MAGN500C2 PO; +ONDA-84 PO; -ONDA8TAB10 PO; +ORAL0.1P MT; +OXYC-517 PO; +OXYC10TA12 PO; -PROC10TA4 PO; +PROC10TA5 PO; +[UNRECOGNIZED DRUG - CODE] PO
== END ==
LOC: M RAD 13:33
PROVIDERS: ATTEND Internal Medicine Medical Oncology
DX: C34.00 Malignant neoplasm of unspecified main bronchus (principal); J98.11 Atelectasis; N28.1 Cyst of kidney, acquired
CPT/HCPCS: 71260; 74177; Q9963; Q9967

== ENCOUNTER → 2021-06-15 | Outpatient (CLI) | payer BC, MEDICARE ==
[~2021-06-15] MED LIST changes: +CEFD1CAP8 PO; -CEFD300C41 PO; -DEXA4TA PO; +DILT180C70; -DILT180C70 PO; -DILT30TA PO; -DOXY-443 PO; +DOXY1CAP62 PO; -ELIQ5TAB PO; +FLUC150T PO; -FLUC150T9 PO; -GASTROGRAFIN SOLUTION 30ML (Q9963) As Ordered ONE; -ISOVUE-370 76% 100ML VIAL As Ordered ONE; +LEVO500T3 PO; -LEVO500T4 PO; -LOSA50TA28 PO; +LOSA50TA88 PO; -MAGN500C2 PO; -ONDA-84 PO; +ONDA8TAB10 PO; -ORAL0.1P MT; -OXYC-517 PO; -OXYC10TA12 PO; +PROC10TA4 PO; -PROC10TA5 PO; +XARE10TA
== END ==
LOC: M LABSMTC 13:20
PROVIDERS: ATTEND Anesthesiology
DX: Z01.812 Encounter for preprocedural laboratory examination (principal); Z20.822 Contact with and (suspected) exposure to COVID-19

== ENCOUNTER 2021-06-20 06:09 | Day surgery (SDC) | payer BC, MEDICARE ==
[~2021-06-20] VITALS: Ht 152.4 cm; Wt 77.1 kg
[~2021-06-20 06:09] MED LIST changes: +ALBUTEROL SULFATE 2.5 MG/0.5 ML INH NEB SOLN INH ONE; -DILT180C70; +DILT180C70 PO; +LIDOCAINE 4% INJ 5ML AMP INH ONE; +LR 1,000 ML IV ONE; -XARE10TA
[2021-06-20] MEDS ORDERED: dexameTHASONE 4 MG/ML 1ML VIAL (J1100 PER 1MG) As Ordered ONE (07:14)
[2021-06-20] MEDS ORDERED: KETOROLAC 60MG 2ML VIAL As Ordered ONE (07:14)
[2021-06-20] MEDS ORDERED: MIDAZOLAM INJ 2MG/2ML VIAL (J2250 PER 1MG) As Ordered ONE (07:14)
[2021-06-20] MEDS ORDERED: propofoL 200 MG/20 ML VIAL As Ordered ONE (07:14)
[2021-06-20] MEDS ORDERED: LIDOCAINE 2% 100MG/5ML SDV (FOR ANES.) As Ordered ONE (07:14)
[2021-06-20] MEDS ORDERED: fentaNYL 100 MCG/2 ML INJECTION (J3010) As Ordered ONE (07:14)
[2021-06-20] MEDS ORDERED: ONDANSETRON 4MG/2ML VIAL As Ordered ONE (07:14)
[2021-06-20] MEDS ORDERED: ROCURONIUM BROMIDE 50 MG/5 ML VIAL As Ordered ONE (07:14)
[2021-06-20] MEDS ORDERED: SUGAMMADEX SODIUM 500 MG/5 ML VIAL (BRIDION) As Ordered ONE (07:14)
[2021-06-20] MEDS ORDERED: EPINEPHrine 1MG/10ML SYRINGE 1.5IN As Ordered ONE (07:16)
[2021-06-20] MEDS ORDERED: THROMBIN SOLN 5,000 UNITS VIAL As Ordered ONE (07:16)
[2021-06-20] MEDS ORDERED: LIDOCAINE 1% SDV 30ML VIAL As Ordered ONE (07:16)
[2021-06-20] MEDS ORDERED: LIDOCAINE VISCOUS 2% SOLN 15ML UDC As Ordered ONE (07:17)
[2021-06-20] MEDS ORDERED: CETACAINE SPRAY 5GM As Ordered ONE (07:17)
[2021-06-20] MEDS ORDERED: LIDOCAINE 4% TOPICAL SOLN 50 ML BTL As Ordered ONE (07:17)
[2021-06-20] MEDS ORDERED: fentaNYL 100 MCG/2 ML INJECTION (J3010) IV PRN (08:25)
[2021-06-20] MEDS ORDERED: ONDANSETRON 4MG/2ML VIAL IV PRN (08:25)
[2021-06-20] MEDS ORDERED: LR 1,000 ML IV SCH (08:25)
[2021-06-20] MEDS ORDERED: oxyCODONE 5MG TAB PO PRN (08:25)
--- NOTE | 2021-06-20 08:33 | REP ---
INDICATION: POST OP IN PACU/BRONCHOSCOPY COMPARISON: 03/26/2021 TECHNIQUE: Portable AP view of the chest FINDINGS: Near complete opacification of the left hemithorax partially related to ipsilateral mediastinal shift and volume loss. No obvious pneumothorax. Right hemithorax is relatively well aerated and clear although very subtle right basilar pleural reaction cannot be excluded. Gonzalez rods through the thoracic spine remains stable. [id number] again identified with tip in the SVC. IMPRESSION: Findings as above. <Electronically signed by Timmy Jain > 06/20/21 [id number]
--- NOTE | 2021-06-20 09:01 | RO ---
OPERATIVE NOTE DATE OF OPERATION: 06/20/2021 TIME: 0759 PREOPERATIVE DIAGNOSIS: Left main stem obstruction. POSTOPERATIVE DIAGNOSIS: Left main stem obstruction. FINDINGS: Radiation changes of the left upper and left lower lobe airways. PROCEDURE: Bronchoscopy with bronchoalveolar lavage (BAL). SURGEON: Vic Garcia DO ASSISTANTS: None. ANESTHESIA: General. Please refer to their notes for details. SPECIMENS OBTAINED: Bronchoalveolar lavage of the left lower lobe. ESTIMATED BLOOD LOSS: None. BLOOD REPLACED: None. COMPLICATIONS: No observed complications. DRAINS: None. DESCRIPTION OF PROCEDURE: After informed consent was reviewed with the patient in the preoperative area, she was brought back to [facility]. The patient was placed in a supine position and anesthesia was initiated. The patient was intubated with an 8.0 endotracheal tube and the 1T190 bronchoscope was then inserted. A timeout was performed with two patient identifiers, identifying correct site and correct procedure and correct imaging. I entered the tube with the use of Cetacaine spray. Trachea was fairly midline. Carinae were sharp without splaying. The left main stem was obstructed with mucus. This was easily suctioned. Right main stem was clear. RB-1 through 10 was inspected without endobronchial lesions. After evacuating the mucus obstruction in the left main stem, the left upper lobe and left lower lobe were cleared. There was obvious radiation changes and tortuosity of the airway. With the 1T190 scope, I was unable to mobilize past the takeoff to the left upper lobe. The lingula did not have any endobronchial lesions. There were minimal lesions on the airways from previous areas of biopsy. There were no polypoid lesions and no exophytic lesions. The left lower lobe was tortuous, but all airways were clear. There were no endobronchial lesions. BAL was performed. There was a small amount of mucus in the airway. After suctioning and the bronchoscope was removed, there was no evidence of hemorrhage. The patient was brought back to the recovery room. Post-procedure chest x-ray is pending with no observed complications at this point in time.
[2021-06-20 09:22] VITALS: BP 113/64
== END 2021-06-20 09:21 | disposition home or self-care (01) ==
LOC: M SDC 06:09
PROVIDERS: ATTEND Internal Medicine Pulmonary Disease
DX: J98.4 Other disorders of lung (principal); J70.0 Acute pulmonary manifestations due to radiation; I31.3 Pericardial effusion (noninflammatory); I48.91 Unspecified atrial fibrillation; I10 Essential (primary) hypertension; D64.9 Anemia, unspecified; C79.51 Secondary malignant neoplasm of bone; Z87.891 Personal history of nicotine dependence; Z86.73 Personal history of transient ischemic attack (TIA), and cerebral infarction without residual deficits; J44.9 Chronic obstructive pulmonary disease, unspecified; Z99.81 Dependence on supplemental oxygen; C34.92 Malignant neoplasm of unspecified part of left bronchus or lung; Z86.711 Personal history of pulmonary embolism; Z79.899 Other long term (current) drug therapy; Z79.01 Long term (current) use of anticoagulants; Z79.51 Long term (current) use of inhaled steroids; Z88.0 Allergy status to penicillin; Z91.013 Allergy to seafood
CPT/HCPCS: 31624; 71045; 87070; 87205; J1100; J1885; J2250; J2405; J3010

== ENCOUNTER → 2021-07-12 | Outpatient (CLI) | payer BC, MEDICARE ==
[~2021-07-12] MED LIST changes: -ALBUTEROL SULFATE 2.5 MG/0.5 ML INH NEB SOLN INH ONE; -LIDOCAINE 4% INJ 5ML AMP INH ONE; -LR 1,000 ML IV ONE
--- NOTE | 2021-07-15 12:13 | ECHO ---
ECHOCARDIOGRAM DATE OF PROCEDURE: 07/12/2021 Age: 56 Gender: Female Height: 150 cm Weight: 78 kg PATIENT LOCATION: Outpatient. REFERRING PROVIDER: Vic Garcia M.D. REASON FOR THE TESTING: Pericardial effusion. MEASUREMENTS: 2D Measurements: IVS 0.9 cm LV 4.2 cm LVPW 0.9 cm LA 3.5 cm Aorta 3.4 cm Doppler Measurements: Peak velocity across the aortic valve 1.4 m/sec Peak velocity across the LVOT 1.2 m/sec Mitral E 1.2 Mitral A 0.9 with a ratio of 1.3 2D COMMENTS: 1. Normal left ventricular size, wall thickness and normal global left ventricular systolic function. The estimated left ventricular systolic ejection fraction is 60-65%. 2. Normal left atrium. The right atrium and the right ventricle appear to be mildly enlarged in limited views. 3. The atrial septum appeared to be normal without evidence of defect or shunt. 4. Normal aortic root. 5. No pericardial effusion seen. 6. Mildly calcified aortic valve with normal leaflet excursion. Normal mitral valve and tricuspid valve. The pulmonic valve and proximal pulmonary artery branches were not well visualized. 7. The inferior vena cava was not well visualized. DOPPLER: It detects moderate aortic regurgitation, trace mitral regurgitation, trace tricuspid regurgitation. Abnormal relaxation pattern was noted across the mitral valve annulus consistent with features of grade 2 left ventricular diastolic dysfunction. IMPRESSION: 1. Normal global left ventricular systolic function. There are some features of grade 2 left ventricular diastolic dysfunction. Left ventricular and diastolic pressure might be elevated. 2. Aortic valve sclerosis with moderate aortic regurgitation. 3. Trace mitral regurgitation. 4. Trace tricuspid regurgitation. The right heart chambers appeared to be mildly enlarged in limited views. 5. No pericardial effusion seen.
== END ==
LOC: M CARPUL 10:25
PROVIDERS: ATTEND Internal Medicine Pulmonary Disease
DX: I35.8 Other nonrheumatic aortic valve disorders (principal); I36.1 Nonrheumatic tricuspid (valve) insufficiency; I31.3 Pericardial effusion (noninflammatory)

== ENCOUNTER → 2021-08-13 | Outpatient (CLI) | payer BC, MEDICARE ==
[~2021-08-13] MED LIST changes: +DILT30TA PO
--- NOTE | 2021-08-14 09:47 | REP ---
INDICATION: RESTAGING LUNG CANCER C34.82. COMPARISON: Multiple prior PET-CT the latest 04/09/2021. Latest CT scan of the chest 08/03/2021 from an outside institution latest CT abdomen pelvis same day also from the outside institution. TECHNIQUE: After the intravenous administration of 9.04 mCi of FDG 18 triplane whole-body PET-CT was performed from the skull base to the mid thigh. FINDINGS: Once again, there is scattered hypermetabolism throughout the left hemithorax in a fashion which appears essentially unchanged compared to the prior exam. This rather diffuse area has a maximal SUV value of 5.96 which is little different than that seen on the prior exam. The focus of hypermetabolism seen anterior to the left ribs at the mid sternal region is also unchanged. This has a maximal SUV value of 4.18. The hypermetabolic foci seen previously in the hip trochanteric tendono bursal region bilaterally is unchanged in the focus of hypermetabolic activity seen in the left gluteal soft tissues is also unchanged. The hypermetabolic activity seen previously in the bony pelvis is all stable, however, there are new foci of hypermetabolism seen within the skeletal structures most notably the right anterior iliac crest which has a maximal SUV value of 6.75, L3 which has a maximal SUV value of 10.4, in the lower sternal body which has a maximal SUV value of 3.65, and in the proximal right humerus which has a maximal SUV value of 3.76. No other areas of abnormal hypermetabolic activity are seen in the neck, chest, abdomen, or pelvis. IMPRESSION: 1. Stable appearing hypermetabolism seen in the chest and related soft tissues as described above. 2. Abnormal skeletal hypermetabolism as described above some of which is new and highly suspicious for metastatic disease. This needs to be correlated clinically with appropriate follow-up. 3. Other findings as described above. <Electronically signed by Pedro Pablo Simmons > 08/14/21 [id number]
== END ==
LOC: M PLARAD 10:27
PROVIDERS: ATTEND Internal Medicine Pulmonary Disease
DX: R93.89 Abnormal findings on diagnostic imaging of other specified body structures (principal); C34.82 Malignant neoplasm of overlapping sites of left bronchus and lung
CPT/HCPCS: 78815; A9552

== ENCOUNTER → 2021-08-24 | Outpatient (CLI) | payer BC, MEDICARE ==
[~2021-08-24] MED LIST changes: +DEXA4TA PO; +DOXY-443 PO; -DOXY1CAP62 PO; +ELIQ5TAB PO; +MAGN500C2 PO; +OXYC-517 PO
--- NOTE | 2021-08-24 15:50 | RADONC ---
Radiation Oncology Hx/FUP Radiation Oncology Hx/FUP Date of Service: Aug 24, 2021 Pt Identifier Chantale Hurst is a 56 year old female seen for a followup visit today at the department of radiation oncology for a history of metastatic NSCLC to bone. She is seen today to discuss palliative RT to address painful lesions in the thoracic spine and pelvis. Diagnosis/Treatment History Oncologic History Per Drs. Steel/Peyton's recent notes: Concurrent chemotherapy RT with cisplatin/etoposide February - April 2018. 72 Gy in 40 fractions. Cisplatin/etoposide one cycle May 2018. Adjuvant durvalumab 06/18/16 - 10/2019. L5 metastasis January 2019 status post palliative RT; T12 metastasis 04/2019 status post palliative RT. 30 Gy in 10 fractions denosumab started 07/2019. Palliative RT right femur/hip 11/16/19 - 11/29/19 30 Gy in 10 fractions. Carboplatin/pemetrexed/bevacizumab four cycles 12/07/2019-03/27/2020. On maintenance pemetrexed/bevacizumab since 03/2020. Last dose of bevacizumab given 07/25/2020 discontinued because of decreased ejection fraction 4050 percent on echocardiogram 08/18/2020. Pemetrexed previously on hold for decrease in GFR, now restarted for improvement in GFR. PET CT scan 10/10/2020 showed stable disease with no evidence of disease progression. PET CT scan 04/09/2021 showed no definite evidence of disease progression, although there was note of activity in symphysis pubis deemed to be of uncertain etiology. MRI brain 06/01/2021 showed no metastatic disease but did show moderate right- sided mastoiditis and middle ear disease. Treated with antibiotics. Awaiting appointment with ENT. CT chest 06/06/2021 showed: 1. There has been interval development of complete atelectasis of the left lung, likely due to a mucus plug in the left mainstem bronchus. 2. Other findings as noted, not significantly changed. CT abdomen 06/05/2021 showed sclerotic foci in pelvis and right femur consistent with treated metastases not significantly changed. The patient was referred to Dr. Garcia who did a bronchoscopy 06/20/2021 and cleared out mucus on left side. 08/08/21 Continued alimta Recent Data: 08/13/21 PET-CT Multiple foci of new hypermetabolism T3-4, L3, right anterior superior iliac crest, right anterior acetabulum and pubic symphysis, left posterior acetabulum, and left ischium Stable parenchymal changes and atelectasis in the left hemithorax Interval History Chantale endorses pain 5/10 constant sometimes L>R, sometimes R>L between her shoulder blades. She also has multifocal pain in the pelvis of similar intensity without radiation down the legs. She currently only takes tylenol for her pain. She was previously tried on oxycodone at low dose with good effect. She has stable SOB on 2L NC at all times. Current Therapy Alimta (change pending d/t progression) Stage NSCLC EULALIA metastatic stage IV Social History: 36 pack year former smoker Drinks socially Allergies / Meds Allergies: Coded Allergies: SEAFOOD (Verified Allergy, Severe, 02/03/18) pt. carries an epi pen Penicillins (Verified Allergy, Unknown, 01/27/19) Home Meds Active Scripts Hydrocortisone (Hydrocortisone 2.5%) 20 Gm Oint...g., 1 APLCT TOP BID for 5 Days, #30 GRAM 2 Refills apply to affected area(s) Prov:HARINDER STEEL MD FACP 05/30/21 Pantoprazole Sodium (Pantoprazole Sodium) 40 Mg Tablet.dr, 40 MG PO DAILY for 1 Day, #1 TAB Prov:OPAL CHEN MD 02/17/21 Reported Medications Diltiazem HCl (Diltiazem HCl) 30 Mg Tablet, 1 TAB PO TID 08/08/21 Iron Heme Polypeptide/Folic AC (Proferrin-Forte Tablet) 1 Each Tablet, 1 TAB PO DAILY, TAB 06/15/21 Rivaroxaban (Xarelto) 10 Mg Tablet, 1 TAB PO DAILY 06/15/21 Metoprolol Tartrate (Metoprolol Tartrate) 25 Mg Tablet, 12.5 MG PO BID 05/03/21 Dronedarone (Multaq) 400 Mg Tablet, 1 TAB PO BID 05/03/21 Covid-19 Vacc,Mrna(Moderna)/Pf (Moderna Covid19 Vacc(Unapprov)) 100 Mcg/0.5 Ml Vial, 100 MCG IM, VIAL 03/15/21 Furosemide (Furosemide) 20 Mg Tablet, 1 TAB PO BID 03/15/21 Guaifenesin (Tussin) 100 Mg/5 Ml Liquid, 200 MG PO Q4H PRN for CONGESTION 01/31/21 Albuterol Sulf (Albuterol Sulfate) 2.5 Mg/3 Ml Vial.neb, 2.5 MG INH Q4H PRN for SHORTNESS OF BREATH 01/31/21 Magnesium Oxide (Magnesium Oxide) 400 Mg Tablet, 400 MG PO QHS, TAB 01/31/21 Loratadine (Loratadine) 10 Mg Tablet, 10 MG PO DAILY PRN for ALLERGIES, TAB 01/31/21 Tiotropium Jackson (Spiriva Respimat) 4 Gm Mist.inhal, 2 PUFFS INH DAILY 01/31/21 Fluticasone/Vilanterol (Breo Ellipta 200-25 Mcg INH) 1 Each Blst.w.dev, 1 PUFF INH DAILY 09/27/20 Potassium Chloride (Potassium Chloride) 10 Meq Capsule.er, 10 MEQ PO 5XW MON, TUES, THURS, FRI, SAT 03/28/20 Folic Acid (Folic Acid) 0.4 Mg Tablet, 800 MCG PO DAILY 11/16/19 Acetaminophen (Acetaminophen) 500 Mg Tablet, 1000 MG PO Q8H PRN for PAIN, TAB 09/09/19 Review of Systems Review of Systems Constitutional: Reports: Fatigue; Denies: Weight Loss Eyes: Denies: Pain HEENT: Denies: Head Aches Pulmonary: Reports: Dyspnea, Cough Cardiovascular: Denies: Chest Pain, Edema Gastrointestinal: Denies: Abdominal Pain Musculoskeletal: Reports: Neck pain, Shoulder pain, Back pain, Leg pain Neurological: Denies: Weakness, Numbness Psych: Reports: Mood Normal Physical Examination Vital Signs Wt 166 lbs T 97.2 P 85 RR 20 BP 116/74 O2 96% Pain 5 Fatigue 3 General Exam: Alert, Cooperative, No Acute Distress Eye Exam: PERRLA, EOMI Abdomen Exam: Soft Extremity Exam: Negative: Edema Other Physical Findings There is tenderness to palpation in the upper and midthoracic spine and paraspinal musculature. No lumbar or paralumbar spinal tenderness. Tender over superolateral iliac crest. No ischial tenderness. Diagnostic and Laboratory Diagnostic Review Radiologic images, relevant labs and pathology reports were personally reviewed and discussed with Ms. Hurst. Assessment and Plan Impression Assessment Ms. Hurst is a 56 year old female with a history of metastatic NSCLC to bone. She is seen today to discuss palliative RT to address painful lesions in the thoracic spine and pelvis. She has correlation of her pain in the upper thoracic distribution with tenderness on exam and intense T3-4 hypermetabolism on PET-CT. On review of her prior lung treatment plan from 2018 these lesions abut the edge of the treatment field, which thankfully was completely off-cord, thus 2D techniques should be feasible and safe for treating these bone lesions. We will give 20 Gy in 5 fractions with portal imaging for localization. For the multifocal pelvis disease evident on PET-CT and also correlating well with her pain I recommend 20 Gy in 5 fractions as well and this can be treated concurrently. We will make account of the prior lumbosacral treatment as well as the proximal right femur course in our planning, but again 2D techniques should suffice for effective and safe treatment of the current sites of pain. Simulation can occur next week. Side effects of fatigue, mild esophagitis and mild diarrhea were discussed. She agreed to proceed. For pain control in the meantime I gave her 5 mg oxycodone QID PRN and have referred her to palliative care. Performance Status ECOG 2 Plan Palliative RT 20 Gy in 5 fractions to T3-4 and pelvic lesions Simulation next week Oxycodone 5 mg QID PRN Referral to palliative care placed Ms. Hurst was encouraged to call with questions or concerns in the interim period. Billing Statement Total time of [34] minutes was spent preparing for the visit [2], obtaining HPI [5], examining the patient [4], reviewing diagnostic tests [6], discussing management options [8], coordinating care [3], and writing this note [6]. MARISA BABIN MD Aug 24, 2021 15:50
== END ==
LOC: M ONCR 13:46
PROVIDERS: ATTEND General Practice
DX: C34.02 Malignant neoplasm of left main bronchus (principal); C79.51 Secondary malignant neoplasm of bone; Z79.899 Other long term (current) drug therapy; Z88.0 Allergy status to penicillin; Z91.013 Allergy to seafood; Z87.891 Personal history of nicotine dependence; Z92.21 Personal history of antineoplastic chemotherapy; Z92.3 Personal history of irradiation

== ENCOUNTER 2021-08-25 12:23 | Inpatient (IN) | payer BC, MEDICARE ==
[~2021-08-25] VITALS: Ht 152.4 cm; Wt 75.0 kg
[2021-08-25 10:00] VITALS: BP 123/67
[~2021-08-25 12:23] MED LIST changes: -ELIQ5TAB PO; -MAGN500C2 PO
--- OUTSIDE RECORDS SUMMARY | 2021-08-25 12:35 | CCD | Continuity of Care Document ---
Author Author Chantale FRANCIS MD Organization Unknown Address [address] [facility], [address] [place] [address] Phone [phone] Care Team Providers Care Poultry Field Service Technician Name Role Phone Franca Nicole M.D. AUTM [phone] Marlin Carter M.D. AUTM [phone] AUTM Unavailable Problems Active Problems Provider Date Essential hypertension Won Cope MD Onset: 09/01/2017 Sudden hearing loss Won Cope MD Onset: 09/01/2017 Acute lymphadenitis Won Cope MD Onset: 09/01/2017 Arthralgia of temporomandibular joint Won Cope MD On set: 09/15/2017 Hemoptysis Andrea Acuna Onset: 12/15/2017 Difficulty breathing Andrea Acuna Onset: 12/15/2017 Chronic obstructive lung disease Andrea Acuna Onset: 12/15/2017 Ex-smoker Andrea Acuna Onset: 12/15/2017 Other nonspecific abnormal finding of lung field Vic Garcia D.O. Onset: 01/07/2018 Malignant neoplasm of upper lobe, bronchus or lung Vic pruitt D.O. Onset: 01/14/2018 Cough Vic Garcia D.O. Onset: 02/19/2018 Obstructive sleep apnea syndrome Vic Garcia D.O. Onset: 03/03/2018 Hypoxemia Parish HuntO. Onset: 04/10/2018 Pulmonary embolism Vic Garcia D.O. Onset: 2018 H/O: pulmonary embolus Vic Garcia D.O. Onset: 09/07/2019 Bleeding from nose Vic Garcia D.O. Onset: 03/13/2020 Arthralgia of the pelvic region and thigh Vic Garcia D.O. Onset: 03/01/2021 Disorder of pericardium Vic Garcia D.O. Onset: 1 History of malignant neoplasm of bronchus Vic Garcia D.O. Onset: 06/12/2021 Bronchiectasis Vic Garcia D.O. Onset: 06/26/2021 Impacted cerumen Cesar Francis MD Onset: 06/27/2021 Hearing loss Cesar Francis MD Onset: 06/27/2021 Bronchiectasis Ashley Hunter M.D. Onset: 07/20/2021 Sensorineural hearing loss, bilateral Cesar Francis MD On set: 08/16/2021 Social History Type Date Description Comments Sex Unknown ETOH Use Denies alcohol use Tobacco Use Start: Unknown End: Patient is a former smoker hx:1/2ppd since age 16 Recreational Drug Use Denies Drug Use Smoking Status Reviewed: 07/20/21 Patient is a former smoker hx :1/2ppd since age 16 Allergies and adverse reactions Active Allergies Criticality Reaction | Severity Comments Date Penicillin Unable to assess criticality rash 09/01/2017 Seafood Unable to assess criticality 09/15/2017 Medications Active Medications SIG Qnty Indications Ordering Provide r Date Albuterol Sulfate (2 .5mg/3ML) 0.083% Nebulizer use 1 vial in nebulizer 4 times daily - and as needed 360ml Vic Garcia D.O. 06/26/2021 Breo Ellipta 200-25mcg/Inh Aerosol inhale one puff by mouth every day 180units Parish HuntOKellen 09/2020 Xarelto 20mg Tablets Take 1 Tablet By Mouth Every Day 90tabs Parish HuntOKellen 05/14/2018 Oxygen 2l with exertion- LCW Parish Hunt 05/04/2018 Spiriva Respimat 2.5mcg/Act Aeroso l 2 puffs every day 12gm Parish HuntO. 04/20/2018 Furosemide 20mg Tablets 1 tab by mouth 5 days a week 3tabs Unknown Metoprolol Tartrate 25mg Tablets 1/2 tab by mouth every day Unknown Multaq 400mg Tablets 1 tab by mouth twice a day Unknown Diltiazem HCL ER 180mg Caps ER 24H R 1 tab by mouth every night Unknown Claritin 10mg Tablets 1 tab by mouth as needed 30tabs Unknown Potassium Chloride Jennifer ER 1 tab by mouth 5 days a week Unknown Magnesium 500mg Tablets 1 tab by mouth every day 30tabs Unknown Folic Acid 800mcg Tablets 1 tab by mouth every day Unknown Proair HFA 108(90Base) mcg/Act Aer osol 2 puffs four times a day as needed 25.5gm Parish HuntO Kellen Tylenol 325mg Tablets as need ed Unknown Pantoprazole Sodium 20mg Tablets D R 1 by mouth every day 60tabs Unknown History Medications Cipro 500mg Tablets 1 tab by mouth twice a day x 14 days 28tabs Victoriano Loaiza MD 05/14/2021 - 05/28/2021 Tobramycin Sulfate 80mg/2ML Soluti on one vial via nebulizer twice a day for 28 days on and 28 days off and repeat 25vials J44.9 Parish HuntO. 05/04/2021 - 021 B96.5 Tobramycin 300mg/4ML Nebulizer inhaled twice a day for 28 days 224ml Parish HuntO. 021 - 05/04/2021 Levofloxacin 500mg Tablets 1 by mouth every day 14tabs Parish HuntOKellen 04/30/2021 - Levofloxacin 500mg Tablets 1 by mouth every day 10tabs Parish HuntOKellen 03/26/2021 - Immunizations CPT Code Status Date Vaccine Lot # [id number] Given 09/07/2019 Prevnar 13 [id number] Given 08/18/2019 Flublock, Quadrivalent Vital Signs Date Vital Result Comment 08/16/2021 9:44am BP Systolic 110 mmHg BP Diastolic 70 mmHg Heart Rate 78 /min O2 % BldC Oximetry 96 % Height 60 inches 5'0" Weight 166.00 lb BMI (Body Mass Index) 32.4 kg/m2 [place] Body Weight 100 lb Weight 75.298 kg BSA (Body Surface Area) 1.72 m2 07/20/2021 2:01pm BP Systolic 115 mmHg BP Diastolic 68 mmHg Heart Rate 80 /min O2 % BldC Oximetry 992 % Height 60 inches 5'0" Weight 169.38 lb BMI (Body Mass Index) 33.1 kg/m2 [place] Body Weight 100 lb Weight 76.829 kg BSA (Body Surface Area) 1.74 m2 Results Test Acquired Date Facility Test Result H/L Range Note Bal Culture And Gram Stain 06/20/2021 [facility] [address] [place] [address] [phone] Gram Stain (SEE NOTE) Normal 1 Bal Culture FULL REPORT IN L <SEE NOTE> Normal 2 Sputum Culture And Gram Stain 05/23/2021 [facility] [address] [place] [address]63 [phone] Gram Stain (SEE NOTE) Normal 3 Sputum Culture FULL REPORT IN L <SEE NOTE> Normal 4 Sputum Culture And Gram Stain 04/30/2021 [facility] [address] [place] [address]356 [phone] Gram Stain (SEE NOTE) Normal 5 Sputum Culture FULL REPORT IN L <SEE NOTE> Normal 6 Sputum Culture And Gram Stain 03/26/2021 [facility] [address] [place] [address]57 [phone] Gram Stain (SEE NOTE) Normal 7 Sputum Culture FULL REPORT IN L <SEE NOTE> Normal 8 1 FEW WBCS NO ORGANISMS SEEN 2 FULL REPORT IN LAB NOTES ([facility] and [facility]). NO GROWTH AEROBICALLY 3 QUALITY: GOOD MODERATE EPITHELIAL CELLS MODERATE WBCS MANY GRAM POSITIVE COCCI IN PAIRS, CHAINS AND CLUSTERS FEW YEAST LIKE ORGANISM MANY GRAM POSITIVE RODS FEW GRAM NEGATIVE RODS 4 FULL REPORT IN LAB NOTES ([facility]). NORMAL JEROME PRESENT 5 QUALITY: GOOD MODERATE WBCS FEW EPITHELIAL CELLS MODERATE GRAM POSITIVE COCCI IN PAIRS AND CHAINS FEW GRAM POSITIVE RODS 6 FULL REPORT IN LAB NOTES ([facility]). NORMAL JEROME PRESENT ORGANISM 1: PSEUDOMONAS AERUGINOSA QUANTITY OF GROWTH FEW ORGANISM 1: PSEUDOMONAS AERUGINOSA PSEUDOMONAS AERUGINOSA: REACTION GENTAMICIN IV 80mg q8h <=1 S LEVOFLOXACIN IV 500mg qd 0.5 S LEVOFLOXACIN PO 250mg qd 0.5 S LEVOFLOXACIN PO 500mg qd 0.5 S TOBRAMYCIN IV 80mg q8h <=1 S CEFTAZIDIME IV 1gm q8h 4 S PIPERACILLIN/TAZOBACTAM IV 2.25 gm q6h 8 S MEROPENEM IV 1 gm q8h 1 S MEROPENEM IV 500 mg q8h 1 S CEFEPIME IV 1 gm q12h <=1 S CEFEPIME IV 2 gm q12h <=1 S 7 QUALITY: GOOD MANY WBCS FEW EPITHELIAL CELLS MANY GRAM POSITIVE COCCI IN PAIRS, CHAINS AND CLUSTERS MODERATE GRAM POSITIVE RODS 8 FULL REPORT IN LAB NOTES ([facility]). NORMAL JEROME PRESENT ORGANISM 1: MOLD LIKE ORGANISM QUANTITY OF GROWTH FEW ORGANISM 1: MOLD LIKE ORGANISM Procedures Date Code Description Status 08/16/2021 57952 Office/Outpatient Established Lo w MDM 20-29 Min Completed 07/20/2021 49300 Office/Outpatient Established Mo d MDM 30-39 Min Completed 06/27/2021 62814 Office/Outpatient Established Lo w MDM 20-29 Min Completed 06/27/2021 37786 Remove Impacted Cerumen Complete d 06/26/2021 11076 Office/Outpatient Established Mo d MDM 30-39 Min Completed 06/20/2021 94021 Bronchoscopy W/Bronchial Alveola r Lavage Completed 06/12/2021 75032 Office/Outpatient Established Mo d MDM 30-39 Min Completed 04/17/2021 01790 Office/Outpatient Established Mo d MDM 30-39 Min Completed 03/01/2021 81710 Office/Outpatient Established Mo d MDM 30-39 Min Completed 02/17/2021 59539 Hospital Subsequent Care Level 2 Completed 02/16/2021 66913 Hospital Subsequent Care Level 2 Completed Medical Devices Description No Information Available Encounters Type Date Location Provider Dx Diagnosis Office Visit 08/16/2021 9:45a [facility] Sarah Simmons H90.3 Sensorineural hearing loss, bilateral Office Visit 07/20/2021 2:00p [facility] Ashley Ventura M.D. J47.9 Bronchiectasis, uncomplicate d Z85.118 Personal history of malignan t neoplasm of bronchus and lung Z86.711 Personal history of pulmonar y embolism J98.09 Other diseases of bronchus, not elsewhere classified Office Visit 06/27/2021 9:15a [facility] Sarah Simmons H61.21 Impacted cerumen, right ear H91.92 Unspecified hearing loss, le ft ear Office Visit 06/26/2021 11:00a [facility] Vic Se ars, D.O. R91.8 Other nonspecific abnormal finding of tony ng field Z85.118 Personal history of malignan t neoplasm of bronchus and lung Z86.711 Personal history of pulmonar y embolism J47.9 Bronchiectasis, uncomplicate d Office Visit 06/12/2021 11:30a [facility]Thoracic Vic Se ars, D.O. R91.8 Other nonspecific abnormal finding of tony ng field I31.3 Pericardial effusion (noninf lammatory) Z85.118 Personal history of malignan t neoplasm of bronchus and lung Office Visit 04/17/2021 1:30p [facility] Vic Se ars, D.O. R04.2 Hemoptysis Z85.118 Personal history of malignan t neoplasm of bronchus and lung Z86.711 Personal history of pulmonar y embolism M25.552 Pain in left hip Office Visit 03/01/2021 1:30p [facility]acic Vic Se ars, D.O. R04.2 Hemoptysis Z85.118 Personal history of malignan t neoplasm of bronchus and lung Z86.711 Personal history of pulmonar y embolism M25.552 Pain in left hip Office Visit 02/17/2021 1:23a [facility] Ashley Ventura M.D. R04.2 Hemoptysis R91.8 Other nonspecific abnormal f inding of lung field R60.9 Edema, unspecified Office Visit 02/16/2021 1:23a [facility] Ashley Ventura M.D. R04.2 Hemoptysis C34.90 Malignant neoplasm of unsp p art of unsp bronchus or lung D64.9 Anemia, unspecified R60.9 Edema, unspecified Assessments Date Code Description Provider 08/16/2021 H90.3 Sensorineural hearing loss, bila teral Cesar Francis MD 07/20/2021 J47.9 Bronchiectasis Ashley Hunter M.D. 07/20/2021 Z85.118 Personal history of other malignant neoplasm of bronchus and lung Ashley Hunter M.D. 07/20/2021 Z86.711 Personal history of pulmonary em bolism Ashley Hunter M.D. 07/20/2021 J98.09 Other diseases of bronchus, not elsewhere classified Ashley Hunter M.D. 06/27/2021 H61.21 Impacted cerumen, right ear Teddy sharon Francis MD 06/27/2021 H91.92 Unspecified hearing loss, left e ar Cesar Francis MD 06/26/2021 R91.8 Other nonspecific abnormal findi ng of lung field Vic Sears, D.O. 06/26/2021 Z85.118 Personal history of other malignant neoplasm of bronchus and lung Vic Sears, D.O. 06/26/2021 Z86.711 Personal history of pulmonary em bolism Vic Sears, D.O. 06/26/2021 J47.9 Bronchiectasis Vic Sears, D.O. 06/20/2021 R91.8 Other nonspecific abnormal findi ng of lung field Vic Sears, D.O. 06/20/2021 J98.09 Other diseases of bronchus, not elsewhere classified Vic Sears, D.O. 06/12/2021 R91.8 Other nonspecific abnormal findi ng of lung field Vic Sears, D.O. 06/12/2021 I31.3 Pericardial effusion (noninflamm atory) Vic Sears, D.O. 06/12/2021 Z85.118 Personal history of other malignant neoplasm of bronchus and lung Vic Sears, D.O. 04/17/2021 R04.2 Hemoptysis Vic Sears, D.O. 04/17/2021 Z85.118 Personal history of other malignant neoplasm of bronchus and lung Vic Sears, D.O. 04/17/2021 Z86.711 Personal history of pulmonary em bolism Vic Sears, D.O. 04/17/2021 M25.552 Pain in left hip Vic Garcia, D.O . 03/01/2021 R04.2 Hemoptysis Vic Garcia, D.O. 03/01/2021 Z85.118 Personal history of other malignant neoplasm of bronchus and lung Vic Garcia, D.O. 03/01/2021 Z86.711 Personal history of pulmonary em bolism Vic Melarars, D.O. 03/01/2021 M25.552 Pain in left hip Vic Garcia, D.O . 02/17/2021 R04.2 Hemoptysis Ashley Hunter M.D. 02/17/2021 R91.8 Other nonspecific abnormal findi ng of lung field Ashley Hunter M.D. 02/17/2021 R60.9 Edema, unspecified Linda Hunter M.D. 02/16/2021 R04.2 Hemoptysis Ashley Hunter M.D. 02/16/2021 C34.90 Malignant neoplasm o f unspecified part of unspecified bronchus or lung Ashley Hunter M.D. 02/16/2021 D64.9 Anemia, unspecified Mattie Hunter M.D. 02/16/2021 R60.9 Edema, unspecified Linda Hunter M.D. Plan of Treatment Future Appointment(s):* 09/07/2021 11:15 am - JENN Rodríguez at [facility] * 10/02/2021 2:30 pm - Vic Garcia D.O. at [facility] Pulmonary/Thoracic Functional Status Description No Information Available Mental Status Description No Information Available Referrals Refer to Reason for Referral Status Appt Date [place], Audiology Audiogram Scheduled Nichol Melendrez MD [id number] [facility], [place] [address] [phone] Radiology/Procedure [id number] Closed 04/09/2021
--- OUTSIDE RECORDS SUMMARY | 2021-08-25 12:35 | CCD | Continuity of Care Document ---
Author Author Chantale BLAKE P. C. Organization Unknown Address [address] [place] [id number] Phone [phone] Care Team Providers Care Contact Manager Name Role Phone Evelyn Jackman MD AUT Unavailable Leida BLAKE.Shay RUIZ [phone] Social History Type Date Description Comments Sex Unknown Allergies and adverse reactions Active Allergies Criticality Reaction | Severity Comments Date Penicillin V Unable to assess criticality 08/10/2020 Seafood Unable to assess criticality 08/10/2020 Medications Active Medications SIG Qnty Indications Ordering Provide r Date Eliquis 5mg Tablets take one tablet by mouth twice a day 60tabs [facility] 2020 Cardizem CD 180mg Caps ER 24HR 1 by mouth every day at bedtime 90caps [facility] 07/2021 Furosemide 20mg Tablets 1 tab every day 90tabs [facility]el [facility] 05/31/2021 Potassium Chloride ER 10Meq Capsul es ER 1 cap twice a day 180capedmond Alvarez M.D.,[facility] 05/31/20 21 Multaq 400mg Tablets 1 by mouth twice a day 180tamatthew Alvarez M.D.,[facility] 04/11/20 21 Ferrous Sulfate 325(65Fe) mg Table ts 1 by mouth every day 90tabs O[facility]el [facility] 03/13/20 21 Diltiazem HCL 30mg Tablets Take 1 Tablet By Mouth Every 8 Hours 270tabs [facility]el [facility] 0 03/02/2021 Breo Ellipta 200-25mcg/Inh Aerosol [facility]el [facility] 11/07/2020 Xarelto 10mg Tablets take one tablet by mouth daily 90tabs O[facility]el [facility] Pantoprazole Sodium 40mg Tablets D R 1 tab by mouth every day 90tabs [facility] Spiriva Respimat 2.5mcg/Act Aeroso l Inhale To Puffs By Mouth Every Day Unknown Metoprolol Tartrate 25mg Tablets 1/2 tab twice a day 180tabs [facility] History Medications Corlanor 5mg Tablets 1 by mouth twice a day 60tabs [facility] 03/13/20 - 03/21/2021 Cardizem 30mg Tablets 1 by mouth twice a day 60tabs [facility] 03/09/20 - 03/13/2021 Vital Signs Date Vital Result Comment 08/13/2021 2:38pm Height 60 inches 5'0" Weight 166.00 lb BMI (Body Mass Index) 32.4 kg/m2 Body Temperature 97.5 F BP Systolic 108 mmHg BP Diastolic 71 mmHg Heart Rate 94 /min O2 % BldC Oximetry 96 % 07/05/2021 2:51pm Height 60 inches 5'0" Weight 172.00 lb BMI (Body Mass Index) 33.6 kg/m2 Body Temperature 97.5 F BP Systolic 116 mmHg BP Diastolic 69 mmHg Heart Rate 87 /min O2 % BldC Oximetry 99 % Results Test Acquired Date Facility Test Result H/L Range Note Comprehensive Metabolic Panel 08/05/2021 [facility] [address] [place] [phone] Comprehensive Metabo (SEE NOTE) 1 Sodium 139 mEq/L 134 - 153 Potassium 4.1 mEq/L 3.6 - 5.0 Chloride 101 mEq/L 98 - 107 Co2 28 mEq/L 22 - 30 Glucose 100 mg/dL High 70 - 99 BUN 18 mg/dL 7 - 21 Creatinine 1.2 mg/dL 0.7 - 1.5 BUN/Creat 15 8 - 27 Total Protein 5.6 g/dL Low 6.3 - 8.2 Albumin 3.2 g/dL Low 3.9 - 5.0 Globulin 2.4 GM/DL 2.4 - 3.2 A/G Ratio 1.3 0.8 - 2.0 Calcium 8.7 mg/dL 8.4 - 10.2 Total Bili <0.7 mg/dL 0.2 - 1.3 Alkaline Phos 157 U/L High 38 - 126 Sgot/Ast 30 U/L 5 - 40 SGPT/Alt 25 U/L 7 - 56 Anion Gap 10.0 mmol/L 8.0 - 16.0 Age 56 yrs Non-Aa GFR 49 mL/min Afr Amer GFR 60 mL/min 2 CBC W/Automated Diff 08/05/2021 [place] [id number] [phone] CBC W/Automated Diff (SEE NOTE) 3 WBC 4.7 10^3/uL 4.2 - 11.0 RBC 2.51 10^6/uL Low 4.20 - 5.40 Hemoglobin 8.7 g/dL Low 12.0 - 16.0 Hematocrit 26.3 % Low 37.0 - 47.0 MCV 104.8 fL High 81.0 - 101 MCH 34.7 pg High 27.0 - 34.0 MCHC 33.1 g/dL 31.0 - 36.0 RDW 14.0 % 11.5 - 14.5 Platelets 113 10^3/uL Low 150 - 450 MPV 10.7 fL High 7.4 - 10.4 Neut 65.4 % 37.0 - 80.0 Lymph 6.8 % Low 25.0 - 40.0 [place] 18.9 % High 3.0 - 8.0 Eos 7.2 % High 0.0 - 7.0 Baso 0.4 % 0.0 - 2.5 %Ig 1.3 % High 0.0 - 0.0 %NRBC 0.0 % 0.0 - 0.0 #Neut 3.09 10^3/uL 2.00 - 6.90 #Lymph 0.32 10^3/uL Low 0.60 - 3.40 #[place] 0.89 10^3/uL 0.00 - 0.90 #Eos 0.34 10^3/uL 0.00 - 0.70 #Baso 0.02 10^3/uL 0.00 - 0.20 #Ig 0.06 10^3/uL 0.00 - 0.10 #NRBC 0.00 10^3/uL 0.00 - 0.00 Manual Diff NOT INDICATED RBC Morph NOT INDICATED Laboratory test finding 08/05/[address] [address] [phone] Magnesium Serum 1.8 mg/dL 1.7 - 2.2 CBC W/Automated Diff 08/04/[address] [address] [phone] CBC W/Automated Diff (SEE NOTE) 4 WBC 4.8 10^3/uL 4.2 - 11.0 RBC 2.47 10^6/uL Low 4.20 - 5.40 Hemoglobin 8.4 g/dL Low 12.0 - 16.0 Hematocrit 25.9 % Low 37.0 - 47.0 MCV 104.9 fL High 81.0 - 101 MCH 34.0 pg 27.0 - 34.0 MCHC 32.4 g/dL 31.0 - 36.0 RDW 14.2 % 11.5 - 14.5 Platelets 92 10^3/uL Low 150 - 450 MPV 10.6 fL High 7.4 - 10.4 Neut 69.5 % 37.0 - 80.0 Lymph 7.6 % Low 25.0 - 40.0 [place] 14.3 % High 3.0 - 8.0 Eos 6.7 % 0.0 - 7.0 Baso 0.4 % 0.0 - 2.5 %Ig 1.5 % High 0.0 - 0.0 %NRBC 0.0 % 0.0 - 0.0 #Neut 3.30 10^3/uL 2.00 - 6.90 #Lymph 0.36 10^3/uL Low 0.60 - 3.40 #[place] 0.68 10^3/uL 0.00 - 0.90 #Eos 0.32 10^3/uL 0.00 - 0.70 #Baso 0.02 10^3/uL 0.00 - 0.20 #Ig 0.07 10^3/uL 0.00 - 0.10 #NRBC 0.00 10^3/uL 0.00 - 0.00 Manual Diff NOT INDICATED RBC Morph NOT INDICATED Comprehensive Metabolic Panel 08/04/2021 [facility] [address] [place], [place] [id number] [phone] Comprehensive Metabo (SEE NOTE) 5 Sodium 138 mEq/L 134 - 153 Potassium 4.1 mEq/L 3.6 - 5.0 Chloride 102 mEq/L 98 - 107 Co2 27 mEq/L 22 - 30 Glucose 99 mg/dL 70 - 99 BUN 18 mg/dL 7 - 21 Creatinine 1.2 mg/dL 0.7 - 1.5 BUN/Creat 15 8 - 27 Total Protein 5.4 g/dL Low 6.3 - 8.2 Albumin 3.3 g/dL Low 3.9 - 5.0 Globulin 2.1 GM/DL Low 2.4 - 3.2 A/G Ratio 1.6 0.8 - 2.0 Calcium 8.7 mg/dL 8.4 - 10.2 Total Bili <0.7 mg/dL 0.2 - 1.3 Alkaline Phos 133 U/L High 38 - 126 Sgot/Ast 28 U/L 5 - 40 SGPT/Alt 23 U/L 7 - 56 Anion Gap 9.0 mmol/L 8.0 - 16.0 Age 56 yrs Non-Aa GFR 49 mL/min Afr Amer GFR 60 mL/min 6 Laboratory test finding 08/04/2021 [facility] [address] [place] [address] [phone] Magnesium Serum 1.4 mg/dL Low 1.7 - 2.2 Iron 29 g/dL Low 42 - 135 Comprehensive Metabolic Panel 08/03/2021 [facility] [address] [place] [address] [phone] Comprehensive Metabo (SEE NOTE) 7, 8 Sodium 137 mEq/L 134 - 153 Potassium 4.1 mEq/L 3.6 - 5.0 Chloride 99 mEq/L 98 - 107 Co2 27 mEq/L 22 - 30 Glucose 102 mg/dL High 70 - 99 BUN 18 mg/dL 7 - 21 Creatinine 1.2 mg/dL 0.7 - 1.5 BUN/Creat 15 8 - 27 Total Protein 5.2 g/dL Low 6.3 - 8.2 Albumin 3.2 g/dL Low 3.9 - 5.0 Globulin 2.0 GM/DL Low 2.4 - 3.2 A/G Ratio 1.6 0.8 - 2.0 Calcium 8.6 mg/dL 8.4 - 10.2 Total Bili <0.7 mg/dL 0.2 - 1.3 Alkaline Phos 105 U/L 38 - 126 Sgot/Ast 23 U/L 5 - 40 SGPT/Alt 17 U/L 7 - 56 Anion Gap 11.0 mmol/L 8.0 - 16.0 Age 56 yrs Non-Aa GFR 49 mL/min Afr Amer GFR 60 mL/min 9 Laboratory test finding 08/03/[address] [id number] [phone] Magnesium Serum 1.6 mg/dL Low 1.7 - 2.2 CBC W/Automated Diff 08/03/[address] [address] [phone] CBC W/Automated Diff (SEE NOTE) 10 WBC 5.5 10^3/uL 4.2 - 11.0 RBC 2.46 10^6/uL Low 4.20 - 5.40 Hemoglobin 8.6 g/dL Low 12.0 - 16.0 Hematocrit 25.5 % Low 37.0 - 47.0 MCV 103.7 fL High 81.0 - 101 MCH 35.0 pg High 27.0 - 34.0 MCHC 33.7 g/dL 31.0 - 36.0 RDW 14.2 % 11.5 - 14.5 Platelets 93 10^3/uL Low 150 - 450 MPV 10.0 fL 7.4 - 10.4 Neut 76.5 % 37.0 - 80.0 Lymph 5.4 % Low 25.0 - 40.0 [place] 12.1 % High 3.0 - 8.0 Eos 4.5 % 0.0 - 7.0 Baso 0.4 % 0.0 - 2.5 %Ig 1.1 % High 0.0 - 0.0 %NRBC 0.0 % 0.0 - 0.0 #Neut 4.23 10^3/uL 2.00 - 6.90 #Lymph 0.30 10^3/uL Low 0.60 - 3.40 #[place] 0.67 10^3/uL 0.00 - 0.90 #Eos 0.25 10^3/uL 0.00 - 0.70 #Baso 0.02 10^3/uL 0.00 - 0.20 #Ig 0.06 10^3/uL 0.00 - 0.10 #NRBC 0.00 10^3/uL 0.00 - 0.00 Manual Diff SEE BELOW Segs 81 % High 37 - 80 %Lymph 6 % Low 25 - 40 %[place] 9 % High 3 - 8 %Eos 4 % 0 - 7 RBC Morph SEE BELOW [place] 1+ Abnormal Normal: None Seen Macro 1+ Abnormal Normal: None Seen Poik 1+ Abnormal Normal: None Seen 11 Ovalocytes 1+ Abnormal Normal: None Seen Hyper Neut 2+ Abnormal Normal: None Seen PLT Est DECREASED Abnormal Normal: Normal 12 Laboratory test finding 08/02/2021 [facility] [address] [place] [address] [phone] Pro-BNP 2923 pg/mL High 0 - 125 Iron 25 g/dL Low 42 - 135 Vitamin B12 Serum 346 pg/mL 232 - 1245 Comprehensive Metabolic Panel 08/02/2021 [facility] [address] [place] [address] [phone] Comprehensive Metabo (SEE NOTE) 13 Sodium 136 mEq/L 134 - 153 Potassium 4.4 mEq/L 3.6 - 5.0 Chloride 102 mEq/L 98 - 107 Co2 30 mEq/L 22 - 30 Glucose 104 mg/dL High 70 - 99 BUN 16 mg/dL 7 - 21 Creatinine 1.2 mg/dL 0.7 - 1.5 BUN/Creat 13 8 - 27 Total Protein 5.4 g/dL Low 6.3 - 8.2 Albumin 3.3 g/dL Low 3.9 - 5.0 Globulin 2.1 GM/DL Low 2.4 - 3.2 A/G Ratio 1.6 0.8 - 2.0 Calcium 8.5 mg/dL 8.4 - 10.2 Total Bili <0.7 mg/dL 0.2 - 1.3 Alkaline Phos 101 U/L 38 - 126 Sgot/Ast 20 U/L 5 - 40 SGPT/Alt 15 U/L 7 - 56 Anion Gap 4.0 mmol/L Low 8.0 - 16.0 Age 56 yrs Non-Aa GFR 49 mL/min Afr Amer GFR 60 mL/min 14 CBC W/Automated Diff 08/02/[address] [address] [phone] CBC W/Automated Diff (SEE NOTE) 15 WBC 7.7 10^3/uL 4.2 - 11.0 RBC 2.63 10^6/uL Low 4.20 - 5.40 Hemoglobin 8.9 g/dL Low 12.0 - 16.0 Hematocrit 28.0 % Low 37.0 - 47.0 MCV 106.5 fL High 81.0 - 101 MCH 33.8 pg 27.0 - 34.0 MCHC 31.8 g/dL 31.0 - 36.0 RDW 14.6 % High 11.5 - 14.5 Platelets 109 10^3/uL Low 150 - 450 MPV 9.8 fL 7.4 - 10.4 Neut 86.2 % High 37.0 - 80.0 Lymph 3.9 % Low 25.0 - 40.0 [place] 6.0 % 3.0 - 8.0 Eos 3.0 % 0.0 - 7.0 Baso 0.4 % 0.0 - 2.5 %Ig 0.5 % High 0.0 - 0.0 %NRBC 0.0 % 0.0 - 0.0 #Neut 6.62 10^3/uL 2.00 - 6.90 #Lymph 0.30 10^3/uL Low 0.60 - 3.40 #[place] 0.46 10^3/uL 0.00 - 0.90 #Eos 0.23 10^3/uL 0.00 - 0.70 #Baso 0.03 10^3/uL 0.00 - 0.20 #Ig 0.04 10^3/uL 0.00 - 0.10 #NRBC 0.00 10^3/uL 0.00 - 0.00 Manual Diff SEE BELOW Segs 84 % High 37 - 80 %Lymph 6 % Low 25 - 40 %[place] 3 % 3 - 8 %Eos 7 % 0 - 7 RBC Morph SEE BELOW [place] 2+ Abnormal Normal: None Seen Hypo 1+ Abnormal Normal: None Seen 16 PLT Est DECREASED Abnormal Normal: Normal 17 Laboratory test finding 08/02/[address] [address] [phone] D-Dimer 3.59 ug/mL High 0.27 - 0.50 Lactic Acid (Lactate) 0.7 mmol/L 0.2 - 2.2 Magnesium Serum 1.7 mg/dL 1.7 - 2.2 CBC W/Automated Diff 04/20/[address] [address] [phone] CBC W/Automated Diff (SEE NOTE) 18 WBC 5.9 10^3/uL 4.2 - 11.0 RBC 2.71 10^6/uL Low 4.20 - 5.40 Hemoglobin 9.1 g/dL Low 12.0 - 16.0 Hematocrit 27.8 % Low 37.0 - 47.0 MCV 102.6 fL High 81.0 - 101 MCH 33.6 pg 27.0 - 34.0 MCHC 32.7 g/dL 31.0 - 36.0 RDW 18.2 % High 11.5 - 14.5 Platelets 166 10^3/uL 150 - 450 MPV 9.1 fL 7.4 - 10.4 Neut 80.6 % High 37.0 - 80.0 Lymph 4.9 % Low 25.0 - 40.0 [place] 10.8 % High 3.0 - 8.0 Eos 2.5 % 0.0 - 7.0 Baso 0.2 % 0.0 - 2.5 %Ig 1.0 % High 0.0 - 0.0 %NRBC 0.0 % 0.0 - 0.0 #Neut 4.77 10^3/uL 2.00 - 6.90 #Lymph 0.29 10^3/uL Low 0.60 - 3.40 #[place] 0.64 10^3/uL 0.00 - 0.90 #Eos 0.15 10^3/uL 0.00 - 0.70 #Baso 0.01 10^3/uL 0.00 - 0.20 #Ig 0.06 10^3/uL 0.00 - 0.10 #NRBC 0.00 10^3/uL 0.00 - 0.00 Manual Diff SEE BELOW Segs 87 % High 37 - 80 %Lymph 2 % Low 25 - 40 %[place] 9 % High 3 - 8 %Eos 2 % 0 - 7 RBC Morph SEE BELOW [place] 1+ Abnormal Normal: None Seen Macro 1+ Abnormal Normal: None Seen Poik 1+ Abnormal Normal: None Seen 19 PLT Est NORMAL Normal: Normal 20 Comprehensive Metabolic Panel 04/20/2021 [facility] [address] [place] [phone] Comprehensive Metabo (SEE NOTE) 21 Sodium 138 mEq/L 134 - 153 Potassium 4.4 mEq/L 3.6 - 5.0 Chloride 102 mEq/L 98 - 107 Co2 28 mEq/L 22 - 30 Glucose 107 mg/dL High 70 - 99 BUN 10 mg/dL 7 - 21 Creatinine 0.7 mg/dL 0.7 - 1.5 BUN/Creat 14 8 - 27 Total Protein 5.4 g/dL Low 6.3 - 8.2 Albumin 3.2 g/dL Low 3.9 - 5.0 Globulin 2.2 GM/DL Low 2.4 - 3.2 A/G Ratio 1.5 0.8 - 2.0 Calcium 8.6 mg/dL 8.4 - 10.2 Total Bili <0.7 mg/dL 0.2 - 1.3 Alkaline Phos 109 U/L 38 - 126 Sgot/Ast 26 U/L 5 - 40 SGPT/Alt 20 U/L 7 - 56 Anion Gap 8.0 mmol/L 8.0 - 16.0 Age 55 yrs Non-Aa GFR >60 mL/min Afr Amer GFR >60 mL/min 22 Laboratory test finding 04/20/2021 [facility] [address] [place] [address] [phone] Magnesium Serum 1.7 mg/dL 1.7 - 2.2 23 CBC W/Automated Diff 04/19/[address] [address] [phone] CBC W/Automated Diff (SEE NOTE) 24 WBC 7.3 10^3/uL 4.2 - 11.0 RBC 2.79 10^6/uL Low 4.20 - 5.40 Hemoglobin 9.4 g/dL Low 12.0 - 16.0 Hematocrit 28.4 % Low 37.0 - 47.0 MCV 101.8 fL High 81.0 - 101 MCH 33.7 pg 27.0 - 34.0 MCHC 33.1 g/dL 31.0 - 36.0 RDW 18.3 % High 11.5 - 14.5 Platelets 193 10^3/uL 150 - 450 MPV 8.8 fL 7.4 - 10.4 Neut 85.9 % High 37.0 - 80.0 Lymph 6.5 % Low 25.0 - 40.0 [place] 4.7 % 3.0 - 8.0 Eos 2.2 % 0.0 - 7.0 Baso 0.3 % 0.0 - 2.5 %Ig 0.4 % High 0.0 - 0.0 %NRBC 0.0 % 0.0 - 0.0 #Neut 6.25 10^3/uL 2.00 - 6.90 #Lymph 0.47 10^3/uL Low 0.60 - 3.40 #[place] 0.34 10^3/uL 0.00 - 0.90 #Eos 0.16 10^3/uL 0.00 - 0.70 #Baso 0.02 10^3/uL 0.00 - 0.20 #Ig 0.03 10^3/uL 0.00 - 0.10 #NRBC 0.00 10^3/uL 0.00 - 0.00 Manual Diff NOT INDICATED RBC Morph NOT INDICATED Comprehensive Metabolic Panel 04/19/2021 [facility] [address] [place] [address] [phone] Comprehensive Metabo (SEE NOTE) 25 Sodium 136 mEq/L 134 - 153 Potassium 4.3 mEq/L 3.6 - 5.0 Chloride 101 mEq/L 98 - 107 Co2 27 mEq/L 22 - 30 Glucose 108 mg/dL High 70 - 99 BUN 13 mg/dL 7 - 21 Creatinine 0.8 mg/dL 0.7 - 1.5 BUN/Creat 16 8 - 27 Total Protein 5.4 g/dL Low 6.3 - 8.2 Albumin 3.3 g/dL Low 3.9 - 5.0 Globulin 2.1 GM/DL Low 2.4 - 3.2 A/G Ratio 1.6 0.8 - 2.0 Calcium 8.7 mg/dL 8.4 - 10.2 Total Bili <0.7 mg/dL 0.2 - 1.3 Alkaline Phos 90 U/L 38 - 126 Sgot/Ast 18 U/L 5 - 40 SGPT/Alt 16 U/L 7 - 56 Anion Gap 8.0 mmol/L 8.0 - 16.0 Age 55 yrs Non-Aa GFR >60 mL/min Afr Amer GFR >60 mL/min 26 Laboratory test finding 04/19/2021 [facility] [address] [place] [address] [phone] Magnesium Serum 1.5 mg/dL Low 1.7 - 2.2 Pro-BNP 692 pg/mL High 0 - 125 Iron 45 g/dL 42 - 135 Laboratory test finding 04/18/2021 [facility] [address] [place] [address] [phone] Troponin T 0.02 NG/ML 0.00 - 0.10 27 Laboratory test finding 04/18/2021 [facility] [address] [place], [place] [id number] [phone] Pro-BNP 766 pg/mL High 0 - 125 TSH Highly Sensitive 1.68 uIU/mL 0.47 - 5.01 Iron 77 g/dL 42 - 135 Vitamin B12 Serum 390 pg/mL 232 - 1245 Comprehensive Metabolic Panel 04/18/2021 [facility] [address] [place] [address] [phone] Comprehensive Metabo (SEE NOTE) 28 Sodium 141 mEq/L 134 - 153 Potassium 4.3 mEq/L 3.6 - 5.0 Chloride 101 mEq/L 98 - 107 Co2 31 mEq/L High 22 - 30 Glucose 101 mg/dL High 70 - 99 BUN 14 mg/dL 7 - 21 Creatinine 0.8 mg/dL 0.7 - 1.5 BUN/Creat 18 8 - 27 Total Protein 5.5 g/dL Low 6.3 - 8.2 Albumin 3.5 g/dL Low 3.9 - 5.0 Globulin 2.0 GM/DL Low 2.4 - 3.2 A/G Ratio 1.8 0.8 - 2.0 Calcium 8.8 mg/dL 8.4 - 10.2 Total Bili <0.7 mg/dL 0.2 - 1.3 Alkaline Phos 99 U/L 38 - 126 Sgot/Ast 18 U/L 5 - 40 SGPT/Alt 17 U/L 7 - 56 Anion Gap 9.0 mmol/L 8.0 - 16.0 Age 55 yrs Non-Aa GFR >60 mL/min Afr Amer GFR >60 mL/min 29 CBC W/Automated Diff 04/18/2021 [place] [id number] [phone] CBC W/Automated Diff (SEE NOTE) 30 WBC 8.9 10^3/uL 4.2 - 11.0 RBC 3.08 10^6/uL Low 4.20 - 5.40 Hemoglobin 10.3 g/dL Low 12.0 - 16.0 Hematocrit 31.2 % Low 37.0 - 47.0 MCV 101.3 fL High 81.0 - 101 MCH 33.4 pg 27.0 - 34.0 MCHC 33.0 g/dL 31.0 - 36.0 RDW 18.5 % High 11.5 - 14.5 Platelets 244 10^3/uL 150 - 450 MPV 8.5 fL 7.4 - 10.4 Neut 88.8 % High 37.0 - 80.0 Lymph 5.7 % Low 25.0 - 40.0 [place] 2.7 % Low 3.0 - 8.0 Eos 2.0 % 0.0 - 7.0 Baso 0.2 % 0.0 - 2.5 %Ig 0.6 % High 0.0 - 0.0 %NRBC 0.0 % 0.0 - 0.0 #Neut 7.88 10^3/uL High 2.00 - 6.90 #Lymph 0.51 10^3/uL Low 0.60 - 3.40 #[place] 0.24 10^3/uL 0.00 - 0.90 #Eos 0.18 10^3/uL 0.00 - 0.70 #Baso 0.02 10^3/uL 0.00 - 0.20 #Ig 0.05 10^3/uL 0.00 - 0.10 #NRBC 0.00 10^3/uL 0.00 - 0.00 Manual Diff NOT INDICATED RBC Morph NOT INDICATED Laboratory test finding 04/18/2021 [place] [address] [phone] Troponin T 0.02 NG/ML 0.00 - 0.10 31 Laboratory test finding 04/18/2021 [place] [address] [place] [address] [phone] Troponin T 0.02 NG/ML 0.00 - 0.10 32 Magnesium Serum 1.7 mg/dL 1.7 - 2.2 T4 - Free 1.23 ng/dL 0.93 - 1.70 Covid-19 04/17/2021 [place] [address] [phone] Covid-19 NOT DETECTED 33 Covid-19 [place] NOT DETECTED 34 CBC W/Automated Diff 04/11/[address] [address] [phone] CBC W/Automated Diff (SEE NOTE) 35 WBC 7.2 10^3/uL 4.2 - 11.0 RBC 3.12 10^6/uL Low 4.20 - 5.40 Hemoglobin 10.3 g/dL Low 12.0 - 16.0 Hematocrit 31.8 % Low 37.0 - 47.0 MCV 101.9 fL High 81.0 - 101 MCH 33.0 pg 27.0 - 34.0 MCHC 32.4 g/dL 31.0 - 36.0 RDW 18.5 % High 11.5 - 14.5 Platelets 436 10^3/uL 150 - 450 MPV 8.9 fL 7.4 - 10.4 Neut 78.6 % 37.0 - 80.0 Lymph 11.4 % Low 25.0 - 40.0 [place] 8.9 % High 3.0 - 8.0 Eos 0.0 % 0.0 - 7.0 Baso 0.1 % 0.0 - 2.5 %Ig 1.0 % High 0.0 - 0.0 %NRBC 0.0 % 0.0 - 0.0 #Neut 5.66 10^3/uL 2.00 - 6.90 #Lymph 0.82 10^3/uL 0.60 - 3.40 #[place] 0.64 10^3/uL 0.00 - 0.90 #Eos 0.00 10^3/uL 0.00 - 0.70 #Baso 0.01 10^3/uL 0.00 - 0.20 #Ig 0.07 10^3/uL 0.00 - 0.10 #NRBC 0.00 10^3/uL 0.00 - 0.00 Manual Diff NOT INDICATED RBC Morph NOT INDICATED Comprehensive Metabolic Panel 04/11/2021 [facility] [address] [place] [address] [phone] Comprehensive Metabo (SEE NOTE) 36 Sodium 139 mEq/L 134 - 153 Potassium 4.5 mEq/L 3.6 - 5.0 Chloride 98 mEq/L 98 - 107 Co2 30 mEq/L 22 - 30 Glucose 133 mg/dL High 70 - 99 BUN 10 mg/dL 7 - 21 Creatinine 0.8 mg/dL 0.7 - 1.5 BUN/Creat 13 8 - 27 Total Protein 6.0 g/dL Low 6.3 - 8.2 Albumin 3.6 g/dL Low 3.9 - 5.0 Globulin 2.4 GM/DL 2.4 - 3.2 A/G Ratio 1.5 0.8 - 2.0 Calcium 9.3 mg/dL 8.4 - 10.2 Total Bili <0.7 mg/dL 0.2 - 1.3 Alkaline Phos 104 U/L 38 - 126 Sgot/Ast 20 U/L 5 - 40 SGPT/Alt 12 U/L 7 - 56 Anion Gap 11.0 mmol/L 8.0 - 16.0 Age 55 yrs Non-Aa GFR >60 mL/min Afr Amer GFR >60 mL/min 37 Laboratory test finding 04/11/[address] [address] [phone] Magnesium Serum 1.5 mg/dL Low 1.7 - 2.2 CBC W/Automated Diff 03/21/[address] [address] [phone] CBC W/Automated Diff (SEE NOTE) 38 WBC 7.6 10^3/uL 4.2 - 11.0 RBC 3.24 10^6/uL Low 4.20 - 5.40 Hemoglobin 10.9 g/dL Low 12.0 - 16.0 Hematocrit 33.4 % Low 37.0 - 47.0 MCV 103.1 fL High 81.0 - 101 MCH 33.6 pg 27.0 - 34.0 MCHC 32.6 g/dL 31.0 - 36.0 RDW 17.2 % High 11.5 - 14.5 Platelets 351 10^3/uL 150 - 450 MPV 8.8 fL 7.4 - 10.4 Neut 70.9 % 37.0 - 80.0 Lymph 12.5 % Low 25.0 - 40.0 [place] 12.8 % High 3.0 - 8.0 Eos 2.2 % 0.0 - 7.0 Baso 1.1 % 0.0 - 2.5 %Ig 0.5 % High 0.0 - 0.0 %NRBC 0.0 % 0.0 - 0.0 #Neut 5.39 10^3/uL 2.00 - 6.90 #Lymph 0.95 10^3/uL 0.60 - 3.40 #[place] 0.97 10^3/uL High 0.00 - 0.90 #Eos 0.17 10^3/uL 0.00 - 0.70 #Baso 0.08 10^3/uL 0.00 - 0.20 #Ig 0.04 10^3/uL 0.00 - 0.10 #NRBC 0.00 10^3/uL 0.00 - 0.00 Manual Diff NOT INDICATED RBC Morph NOT INDICATED Comprehensive Metabolic Panel 03/21/2021 [facility] [address] [place], [place] [id number] [phone] Comprehensive Metabo (SEE NOTE) 39 Sodium 139 mEq/L 134 - 153 Potassium 4.1 mEq/L 3.6 - 5.0 Chloride 98 mEq/L 98 - 107 Co2 31 mEq/L High 22 - 30 Glucose 116 mg/dL High 70 - 99 BUN 5 mg/dL Low 7 - 21 Creatinine 0.9 mg/dL 0.7 - 1.5 BUN/Creat 6 Low 8 - 27 Total Protein 5.9 g/dL Low 6.3 - 8.2 Albumin 3.5 g/dL Low 3.9 - 5.0 Globulin 2.4 GM/DL 2.4 - 3.2 A/G Ratio 1.5 0.8 - 2.0 Calcium 9.2 mg/dL 8.4 - 10.2 Total Bili <0.7 mg/dL 0.2 - 1.3 Alkaline Phos 87 U/L 38 - 126 Sgot/Ast 18 U/L 5 - 40 SGPT/Alt 7 U/L 7 - 56 Anion Gap 10.0 mmol/L 8.0 - 16.0 Age 55 yrs Non-Aa GFR >60 mL/min Afr Amer GFR >60 mL/min 40 Laboratory test finding 03/21/[address] [address] [phone] Magnesium Serum 1.3 mg/dL Low 1.7 - 2.2 Comprehensive Metabolic Panel 03/16/2021 [facility] [address] [place] [address] [phone] Comprehensive Metabo (SEE NOTE) 41 Sodium 139 mEq/L 134 - 153 Potassium 3.3 mEq/L Low 3.6 - 5.0 Chloride 93 mEq/L Low 98 - 107 Co2 33 mEq/L High 22 - 30 Glucose 117 mg/dL High 70 - 99 BUN 6 mg/dL Low 7 - 21 Creatinine 0.8 mg/dL 0.7 - 1.5 BUN/Creat 8 8 - 27 Total Protein 6.0 g/dL Low 6.3 - 8.2 Albumin 3.7 g/dL Low 3.9 - 5.0 Globulin 2.3 GM/DL Low 2.4 - 3.2 A/G Ratio 1.6 0.8 - 2.0 Calcium 7.9 mg/dL Low 8.4 - 10.2 Total Bili <0.7 mg/dL 0.2 - 1.3 Alkaline Phos 91 U/L 38 - 126 Sgot/Ast 20 U/L 5 - 40 SGPT/Alt 9 U/L 7 - 56 Anion Gap 13.0 mmol/L 8.0 - 16.0 Age 55 yrs Non-Aa GFR >60 mL/min Afr Amer GFR >60 mL/min 42 Laboratory test finding 03/16/[address] [address] [phone] Vitamin B12 Serum 573 pg/mL 232 - 1245 Magnesium Serum 03/16/[address] [address] [phone] Magnesium 0.9 mg/dL Critical low 1.7 - 2.2 Call/ Read Back SHIVANI MATA RN By: DESIRAE Date/Time [id number] Laboratory test finding 03/16/[address] [address] [phone] Iron 46 g/dL 42 - 135 T4 - Free 1.54 ng/dL 0.93 - 1.70 TSH Highly Sensitive 1.34 uIU/mL 0.47 - 5.01 CBC W/Automated Diff 03/16/[address] [address] [phone] CBC W/Automated Diff (SEE NOTE) 43 WBC 9.2 10^3/uL 4.2 - 11.0 RBC 3.26 10^6/uL Low 4.20 - 5.40 Hemoglobin 11.0 g/dL Low 12.0 - 16.0 Hematocrit 33.0 % Low 37.0 - 47.0 MCV 101.2 fL High 81.0 - 101 MCH 33.7 pg 27.0 - 34.0 MCHC 33.3 g/dL 31.0 - 36.0 RDW 17.4 % High 11.5 - 14.5 Platelets 333 10^3/uL 150 - 450 MPV 9.0 fL 7.4 - 10.4 Neut 75.4 % 37.0 - 80.0 Lymph 9.7 % Low 25.0 - 40.0 [place] 13.2 % High 3.0 - 8.0 Eos 0.8 % 0.0 - 7.0 Baso 0.5 % 0.0 - 2.5 %Ig 0.4 % High 0.0 - 0.0 %NRBC 0.0 % 0.0 - 0.0 #Neut 6.94 10^3/uL High 2.00 - 6.90 #Lymph 0.89 10^3/uL 0.60 - 3.40 #[place] 1.21 10^3/uL High 0.00 - 0.90 #Eos 0.07 10^3/uL 0.00 - 0.70 #Baso 0.05 10^3/uL 0.00 - 0.20 #Ig 0.04 10^3/uL 0.00 - 0.10 #NRBC 0.00 10^3/uL 0.00 - 0.00 Manual Diff SEE BELOW Segs 81 % High 37 - 80 %Lymph 4 % Low 25 - 40 %[place] 14 % High 3 - 8 %Eos 1 % 0 - 7 RBC Morph SEE BELOW [place] 1+ Abnormal Normal: None Seen Hypo 1+ Abnormal Normal: None Seen 44 Stomatocytes 1+ Abnormal Normal: None Seen 45 CBC W/Automated Diff 03/08/[address] [address] [phone] CBC W/Automated Diff (SEE NOTE) 46 WBC 8.6 10^3/uL 4.2 - 11.0 RBC 2.96 10^6/uL Low 4.20 - 5.40 Hemoglobin 10.1 g/dL Low 12.0 - 16.0 Hematocrit 31.1 % Low 37.0 - 47.0 MCV 105.1 fL High 81.0 - 101 MCH 34.1 pg High 27.0 - 34.0 MCHC 32.5 g/dL 31.0 - 36.0 RDW 17.8 % High 11.5 - 14.5 Platelets 314 10^3/uL 150 - 450 MPV 8.8 fL 7.4 - 10.4 Neut 71.5 % 37.0 - 80.0 Lymph 9.2 % Low 25.0 - 40.0 [place] 16.8 % High 3.0 - 8.0 Eos 0.5 % 0.0 - 7.0 Baso 0.8 % 0.0 - 2.5 %Ig 1.2 % High 0.0 - 0.0 %NRBC 0.0 % 0.0 - 0.0 #Neut 6.13 10^3/uL 2.00 - 6.90 #Lymph 0.79 10^3/uL 0.60 - 3.40 #[place] 1.44 10^3/uL High 0.00 - 0.90 #Eos 0.04 10^3/uL 0.00 - 0.70 #Baso 0.07 10^3/uL 0.00 - 0.20 #Ig 0.10 10^3/uL 0.00 - 0.10 #NRBC 0.00 10^3/uL 0.00 - 0.00 Manual Diff SEE BELOW Segs 76 % 37 - 80 %Lymph 12 % Low 25 - 40 %[place] 10 % High 3 - 8 %Eos 2 % 0 - 7 RBC Morph SEE BELOW [place] 1+ Abnormal Normal: None Seen Poik 1+ Abnormal Normal: None Seen Hypo 1+ Abnormal Normal: None Seen 47 Ovalocytes 1+ Abnormal Normal: None Seen Stomatocytes 1+ Abnormal Normal: None Seen 48 Laboratory test finding 03/08/2021 [facility] [address] [place] [address] [phone] Hgba1c 4.8 % 4.4 - 6.1 49 Iron 41 g/dL Low 42 - 135 Comprehensive Metabolic Panel 03/08/2021 [facility] [address] [place] [id number] [phone] Comprehensive Metabo (SEE NOTE) 50 Sodium 141 mEq/L 134 - 153 Potassium 4.1 mEq/L 3.6 - 5.0 Chloride 97 mEq/L Low 98 - 107 Co2 34 mEq/L High 22 - 30 Glucose 96 mg/dL 70 - 99 BUN 8 mg/dL 7 - 21 Creatinine 0.9 mg/dL 0.7 - 1.5 BUN/Creat 9 8 - 27 Total Protein 5.7 g/dL Low 6.3 - 8.2 Albumin 3.5 g/dL Low 3.9 - 5.0 Globulin 2.2 GM/DL Low 2.4 - 3.2 A/G Ratio 1.6 0.8 - 2.0 Calcium 7.5 mg/dL Low 8.4 - 10.2 Total Bili <0.7 mg/dL 0.2 - 1.3 Alkaline Phos 75 U/L 38 - 126 Sgot/Ast 18 U/L 5 - 40 SGPT/Alt 8 U/L 7 - 56 Anion Gap 10.0 mmol/L 8.0 - 16.0 Age 55 yrs Non-Aa GFR >60 mL/min Afr Amer GFR >60 mL/min 51 Laboratory test finding 03/08/[address] [address] [phone] Vitamin B12 Serum 527 pg/mL 232 - 1245 Urinalysis 03/08/[address] [address] [phone] Urinalysis (SEE NOTE) 52 Source R Color yellow Normal: Yellow Clarity hazy Normal: Clear Spec [place] 1.015 1.001 - 1.030 pH 6 5 - 9 Glucose NORM Normal: Negative Bilirubin NEG Normal: Negative Ketone 5 Abnormal Normal: Negative Protein 30 Normal: Negative Nitrite NEG Normal: Negative Blood 10 Abnormal Normal: Negative Leuk Est NEG Normal: Negative Urobilinogen 1 less than 1.0 mg/dL Microscopic See Below WBC 0 - 1 Normal: None Seen RBC None Seen Normal: None Seen Epithelial MODERATE Abnormal Normal: None Seen Bacteria Trace Normal: None Seen Laboratory test finding 03/08/[address] [address] [phone] Magnesium Serum 1.0 mg/dL Low 1.7 - 2.2 Culture Urine 03/08/[address] [address] [phone] Culture Urine (SEE NOTE) 53 1 COMPREHENSIVE METABOLIC PANE L 2 Male [...] mL/min Normal 3 COMPLETE BLOOD COUNT 4 COMPLETE BLOOD COUNT 5 COMPREHENSIVE METABOLIC PANE L 6 Male GFR Interprentation 20-49 yrs >60 mL/min Normal 50-59 yrs >56 mL/min Normal 60-69 yrs >49 mL/min Normal 70-79yrs >42 mL/min Normal 80 and above >35 mL/min Normal Female GFR Interpretation 20-39 yrs >60 mL/min Normal 40-49 yrs >58 mL/min Normal 50-59 yrs >51 mL/min Normal 60-69 yrs >45 mL/min Normal 70-79 yrs >39 mL/min Normal 80 and above >32 mL/min Normal 7 Is patient fasting? N 8 COMPREHENSIVE METABOLIC PANE L 9 Male [...] 80 and above >32 mL/min Normal 10 COMPLETE BLOOD COUNT 11 { SICKLE CELL (NORMAL: NONE SEEN ) 12 COMMENT: 13 COMPREHENSIVE METABOLIC PANE L 14 Male GFR Interprentation 20-49 yrs >60 mL/min Normal 50-59 yrs >56 mL/min Normal 60-69 yrs >49 mL/min Normal 70-79yrs >42 mL/min Normal 80 and above >35 mL/min Normal Female GFR Interpretation 20-39 yrs >60 mL/min Normal 40-49 yrs >58 mL/min Normal 50-59 yrs >51 mL/min Normal 60-69 yrs >45 mL/min Normal 70-79 yrs >39 mL/min Normal 80 and above >32 mL/min Normal 15 COMPLETE BLOOD COUNT 16 { SICKLE CELL (NORMAL: NONE SEEN ) 17 COMMENT: 18 COMPLETE BLOOD COUNT 19 { SICKLE CELL (NORMAL: NONE SEEN ) 20 COMMENT: 21 COMPREHENSIVE METABOLIC PANE L 22 Male GFR Interprentation 20-49 yrs >60 mL/min Normal 50-59 yrs >56 mL/min Normal 60-69 yrs >49 mL/min Normal 70-79yrs >42 mL/min Normal 80 and above >35 mL/min Normal Female GFR Interpretation 20-39 yrs >60 mL/min Normal 40-49 yrs >58 mL/min Normal 50-59 yrs >51 mL/min Normal 60-69 yrs >45 mL/min Normal 70-79 yrs >39 mL/min Normal 80 and above >32 mL/min Normal 23 can run on todays blood 24 COMPLETE BLOOD COUNT 25 COMPREHENSIVE METABOLIC PANE L 26 Male GFR Interprentation 20-49 yrs >60 mL/min Normal 50-59 yrs >56 mL/min Normal 60-69 yrs >49 mL/min Normal 70-79yrs >42 mL/min Normal 80 and above >35 mL/min Normal Female GFR Interpretation 20-39 yrs >60 mL/min Normal 40-49 yrs >58 mL/min Normal 50-59 yrs >51 mL/min Normal 60-69 yrs >45 mL/min Normal 70-79 yrs >39 mL/min Normal 80 and above >32 mL/min Normal 27 TROPONIN T 0.1 ng/ml Recommended as the clinical th reshold value for Troponin T. 28 COMPREHENSIVE METABOLIC PANE L 29 Male GFR Interprentation 20-49 yrs >60 mL/min Normal 50-59 yrs >56 mL/min Normal 60-69 yrs >49 mL/min Normal 70-79yrs >42 mL/min Normal 80 and above >35 mL/min Normal Female GFR Interpretation 20-39 yrs >60 mL/min Normal 40-49 yrs >58 mL/min Normal 50-59 yrs >51 mL/min Normal 60-69 yrs >45 mL/min Normal 70-79 yrs >39 mL/min Normal 80 and above >32 mL/min Normal 30 COMPLETE BLOOD COUNT 31 TROPONIN T 0.1 ng/ml Recommended as the clinical th reshold value for Troponin T. 32 TROPONIN T 0.1 ng/ml Recommended as the clinical th reshold value for Troponin T. 33 First test?: N~Employed in [facility] [facility]?: N~Symptomatic as defined by CDC?: N~Hospitalized?: Y 34 { PROCEDURAL CONTROL VALID KIT LOT # [id number] 04/17/21.AB . KIT EXP DATE _04.22.21 04/17/21.AB . NORMAL RANGE IS NOT DETECTED NEGATIVE RESULTS SHOULD BE TREATED PRESUMPTIVE AND, IF INCONSISTENT WITH CLINICAL SIGNS AND SYMPTOMS OR NECESSARY FOR PATIENT MANAGEMENT, SHOULD BE TESTED WITH DIFFERENT AUTHORIZED OR CLEARED MOLECULAR TESTS. NEGATIVE RESULTS DO NOT PRECLUDE SARS-CoV-2 INFECTION AND SHOULD NOT BE USED THE SOLE BASIS FOR PATIENT MANAGEMENT DECISIONS. 35 COMPLETE BLOOD COUNT 36 COMPREHENSIVE METABOLIC PANE L 37 Male GFR Interprentation 20-49 yrs >60 mL/min Normal 50-59 yrs >56 mL/min Normal 60-69 yrs >49 mL/min Normal 70-79yrs >42 mL/min Normal 80 and above >35 mL/min Normal Female GFR Interpretation 20-39 yrs >60 mL/min Normal 40-49 yrs >58 mL/min Normal 50-59 yrs >51 mL/min Normal 60-69 yrs >45 mL/min Normal 70-79 yrs >39 mL/min Normal 80 and above >32 mL/min Normal 38 COMPLETE BLOOD COUNT 39 COMPREHENSIVE METABOLIC PANE L 40 Male GFR Interprentation 20-49 yrs >60 mL/min Normal 50-59 yrs >56 mL/min Normal 60-69 yrs >49 mL/min Normal 70-79yrs >42 mL/min Normal 80 and above >35 mL/min Normal Female GFR Interpretation 20-39 yrs >60 mL/min Normal 40-49 yrs >58 mL/min Normal 50-59 yrs >51 mL/min Normal 60-69 yrs >45 mL/min Normal 70-79 yrs >39 mL/min Normal 80 and above >32 mL/min Normal 41 COMPREHENSIVE METABOLIC PANE L 42 Male GFR Interprentation 20-49 yrs >60 mL/min Normal 50-59 yrs >56 mL/min Normal 60-69 yrs >49 mL/min Normal 70-79yrs >42 mL/min Normal 80 and above >35 mL/min Normal Female GFR Interpretation 20-39 yrs >60 mL/min Normal 40-49 yrs >58 mL/min Normal 50-59 yrs >51 mL/min Normal 60-69 yrs >45 mL/min Normal 70-79 yrs >39 mL/min Normal 80 and above >32 mL/min Normal 43 COMPLETE BLOOD COUNT 44 { SICKLE CELL (NORMAL: NONE SEEN ) 45 COMMENT: 46 COMPLETE BLOOD COUNT 47 { SICKLE CELL (NORMAL: NONE SEEN ) 48 COMMENT: 49 {A1] {HB] 50 COMPREHENSIVE METABOLIC PANE L 51 Male GFR Interprentation 20-49 yrs >60 mL/min Normal 50-59 yrs >56 mL/min Normal 60-69 yrs >49 mL/min Normal 70-79yrs >42 mL/min Normal 80 and above >35 mL/min Normal Female GFR Interpretation 20-39 yrs >60 mL/min Normal 40-49 yrs >58 mL/min Normal 50-59 yrs >51 mL/min Normal 60-69 yrs >45 mL/min Normal 70-79 yrs >39 mL/min Normal 80 and above >32 mL/min Normal 52 URINALYSIS 53 _CULTURE URINE_ ^$[id number] ^^[id number] $$031305 ^^187334 $$339066 $$402361 $$680073 $$225443 $$389023 $$627532 $$102852 $$886796 $$950364 $$039589 $$176809 $$166281 $$575975 $$184779 $$862212 $$009772 $$602622 $$034892 $$053406 $$783058 $$087221 $$339708 $$462093 ^^050763 $$981072 $$671906 $$069806 -- Continued on next page -- Patient: JUANITO Daniels Order: [id number] Page 2 Culture: CULTURE URINE Status: Final -- Continued on next page -- Patient: JUANITO Daniels Order: [id number] Page 2 Culture: CULTURE URINE Status: Prelim $$[id number] $$[id number] REPORTED DATE/TIME: 03/13/2021 07:06 Culture: CULTURE URINE Status: Final Urine Culture,Comprehensive: P1 No growth in 36 - 48 hours. Previous result entered on 03/10/2021 23:58 ET No growth after 18-24 hours. P1 Test performed by: [facility] #: [id number] [address] [place] [address] [id number] [facility] [address] Chairman & Ceo : Yonas Rascon MD NPI #: [employer] : 03/12/21.0627.XMT.SENT REF 03/13/21.0736.XMT.SENT REF Procedures Date Code Description Status 08/13/2021 68856 EKG Completed 08/13/2021 86554 Office/Outpatient Established Mo d MDM 30-39 Min Completed 07/05/2021 26579 Office/Outpatient Established Mo d MDM 30-39 Min Completed 07/05/2021 19826 EKG Completed 06/07/2021 34297 Carotid Duplex Scan Bilat Comple domenico 05/31/2021 91415 Office/Outpatient Established Mo d MDM 30-39 Min Completed 05/31/2021 25641 EKG Completed 04/30/2021 70265 Office/Outpatient Established Mo d MDM 30-39 Min Completed 04/30/2021 40891 EKG Completed 04/20/2021 28972 Observation Discharge Completed 04/19/2021 47005 Office/Outpatient Established Mo d MDM 30-39 Min Completed 04/18/2021 20373 Observation Subsequent Level 2 C ompleted 04/17/2021 32311 Observation Initial 2 Completed 03/21/2021 28402 Office/Outpatient Established Mo d MDM 30-39 Min Completed 03/16/2021 32034 Office/Outpatient Established Mo d MDM 30-39 Min Completed 03/16/2021 68802 EKG Completed 03/15/2021 00256 Office/Outpatient Established Lo w MDM 20-29 Min Completed 03/15/2021 90186 EKG Completed 03/13/2021 71047 Office/Outpatient Established Lo w MDM 20-29 Min Completed 03/09/2021 36292 24 Hour Holter Monitoring Comple domenico 03/08/2021 21592 Office/Outpatient Established Mo d MDM 30-39 Min Completed 03/08/2021 33422 EKG Completed Encounters Type Date Location Provider Dx Diagnosis Office Visit 08/13/2021 2:00p [facility] Osmel Alvarez M.D.,P. C. I48.0 Paroxysmal atrial fibrillation I11.9 Hypertensive heart disease w [facility] heart failure R07.9 Chest pain, unspecified I49.49 Other premature depolarizati on Office Visit 07/05/2021 2:45p [facility] Osmel Alvarez M.D.,P. C. I48.0 Paroxysmal atrial fibrillation I11.9 Hypertensive heart disease w [facility] heart failure I49.49 Other premature depolarizati on Office Visit 05/31/2021 2:15p [facility] Oseml Alvarez M.D.,P. C. I48.0 Paroxysmal atrial fibrillation J43.9 Emphysema, unspecified I11.9 Hypertensive heart disease w [facility] heart failure I49.49 Other premature depolarizati on Office Visit 04/30/2021 2:45p [facility] Osmel Alvarez M.D.,P. C. I11.9 Hypertensive heart disease without heart failure I48.0 Paroxysmal atrial fibrillati on I26.99 Other pulmonary embolism wit hout acute cor pulmonale I49.49 Other premature depolarizati on Office Visit 03/21/2021 11:15a [facility] Osmel Alvarez M.D.,P. C. E83.42 Hypomagnesemia J44.9 Chronic obstructive pulmonar y disease, unspecified R00.0 Tachycardia, unspecified Office Visit 03/16/2021 9:45a [facility] Osmel Alvarez M.D.,P. C. R00.0 Tachycardia, unspecified E87.6 Hypokalemia E83.42 Hypomagnesemia I49.49 Other premature depolarizati on Office Visit 03/15/2021 3:00p [facility] Osmel Alvarez M.D.,P. C. I11.9 Hypertensive heart disease without heart failure R00.0 Tachycardia, unspecified R00.2 Palpitations I49.49 Other premature depolarizati on Office Visit 03/13/2021 10:00a [facility] Osmel Alvarez M.D.,P. C. I50.20 Unspecified systolic (congestive) heart failure I11.9 Hypertensive heart disease w ithout heart failure R00.0 Tachycardia, unspecified Office Visit 03/08/2021 10:15a [facility] Osmel Alvarez M.D.,P. C. R00.2 Palpitations R42 Dizziness and giddiness I95.9 Hypotension, unspecified I49.49 Other premature depolarizati on Assessments Date Code Description Provider 08/13/2021 I48.0 Paroxysmal atrial fibrillation Sarah Alvarez M.D.,P.C. 08/13/2021 I11.9 Hypertensive heart disease witho ut heart failure Osmel Alvarez M.D.,P.C. 08/13/2021 R07.9 Chest pain, unspecified Osmel yun M.D.,P.C. 08/13/2021 I49.49 Other premature depolarization Sarah Alvarez M.D.,P.C. 07/05/2021 I48.0 Paroxysmal atrial fibrillation Sarah Alvarez M.D.,P.C. 07/05/2021 I11.9 Hypertensive heart disease witho ut heart failure Osmel Alvarez M.D.,P.C. 07/05/2021 I49.49 Other premature depolarization Sarah Alvarez M.D.,P.C. 06/07/2021 G45.9 Transient cerebral ischemic kierra ck, unspecified Osmel Alvarez M.D.,P.C. 06/07/2021 R42 Dizziness and giddiness Osmle yun M.D.,P.C. 05/31/2021 I48.0 Paroxysmal atrial fibrillation Sarah Alvarez M.D.,P.C. 05/31/2021 J43.9 Emphysema, unspecified Osmel white M.D.,P.C. 05/31/2021 I11.9 Hypertensive heart disease witho mo heart failure Osmel Alvarez M.D.,P.C. 05/31/2021 I49.49 Other premature depolarization Sarah Alvarez M.D.,P.C. 04/30/2021 I11.9 [facility] M.[facility].,P.C. 04/30/2021 I48.0 Paroxysmal atrial fibrillation Sarah Alvarez M.D.,P.C. 04/30/2021 I26.99 Other pulmonary embolism without acute cor pulmonale Osmel Alvarez M.D.,P.C. 04/30/2021 I49.49 Other premature depolarization Sarah Alvarez M.D.,P.C. 04/20/2021 I48.0 Paroxysmal atrial fibrillation Sarah Alvarez M.D.,P.C. 04/20/2021 K21.9 Gastro-esophageal reflux disease without esophagitis Osmel Alvarez M.D.,P.C. 04/20/2021 I10 Essential (primary) hypertension Osmel Alvarez M.D.,P.C. 04/19/2021 I48.0 Paroxysmal atrial fibrillation Sarah Alvarez M.D.,P.C. 04/19/2021 K21.9 Gastro-esophageal reflux disease without esophagitis Osmel Alvarez M.D.,P.C. 04/19/2021 I10 Essential (primary) hypertension Osmel Alvarez M.D.,P.C. 04/18/2021 I48.0 Paroxysmal atrial fibrillation Sarah Alvarez M.D.,P.C. 04/18/2021 K21.9 Gastro-esophageal reflux disease without esophagitis Osmel Alvarez M.D.,P.C. 04/18/2021 I10 Essential (primary) hypertension Osmel Alvarez M.D.,P.C. 04/17/2021 I48.0 Paroxysmal atrial fibrillation Sarah Alvarez M.D.,P.C. 04/17/2021 K21.9 Gastro-esophageal reflux disease without esophagitis Osmel Alvarez M.D.,P.C. 04/17/2021 I10 Essential (primary) hypertension Osmel Alvarez M.D.,P.C. 03/21/2021 E83.42 Hypomagnesemia Evelyn Blake,P.C. 03/21/2021 J44.9 Chronic obstructive pulmonary di sease, unspecified Osmel Alvarez M.D.,P.C. 03/21/2021 R00.0 Tachycardia, unspecified Osmel anderson M.D.,P.C. 03/16/2021 R00.0 Tachycardia, unspecified Osmel anderson M.D.,P.C. 03/16/2021 E87.6 Hypokalemia Evelyn Blake,P.C. 03/16/2021 E83.42 Hypomagnesemia Evelyn Blake,P.C. 03/16/2021 I49.49 Other premature depolarization Sarah Alvarez M.D.,P.C. 03/15/2021 I11.9 Hypertensive heart disease witho ut heart failure Osmel Alvarez M.D.,P.C. 03/15/2021 R00.0 Tachycardia, unspecified Osmel anderson M.D.,P.C. 03/15/2021 R00.2 Palpitations Evelyn Blake,P.C. 03/15/2021 I49.49 Other premature depolarization Sarah Alvarez M.D.,P.C. 03/13/2021 I50.20 Unspecified systolic (congestive ) heart failure Osmel Alvarez M.D.,P.C. 03/13/2021 I11.9 Hypertensive heart disease witho ut heart failure Osmel Alvarez M.D.,P.C. 03/13/2021 R00.0 Tachycardia, unspecified Osmel anderson M.D.,P.C. 03/09/2021 R00.2 Palpitations Evelyn Blake,P.C. 03/08/2021 R00.2 Palpitations Evelyn Blake,P.C. 03/08/2021 R42 Dizziness and giddiness Osmel As hrLeida ford,P.C. 03/08/2021 I95.9 Hypotension, unspecified Osmel anderson M.D.,P.C. 03/08/2021 I49.49 Other premature depolarization Sarah Alvarez M.D.,P.C. Plan of Treatment Future Appointment(s):* 08/27/2021 11:00 am - Osmel Alvarez M.D.,P.C. at [facility] Referrals Refer to Reason for Referral Status Appt Date Evelyn Jackman MD Please eval. and treat this patient for Afib, She needs an ablation. Thank you. Scheduled 05/21/2021 [address] [facility] [address]
--- OUTSIDE RECORDS SUMMARY | 2021-08-25 12:35 | CCD | Continuity of Care Document ---
Author Author Chantale FRANCIS MD Organization Unknown Address [address], [address] [place] [address] Phone [phone] Care Team Providers Care Certified Diabetes Educator Name Role Phone Franca Nicoel M.D. AUTM [phone] Marlin Carter M.D. AUTM [phone] AUTM Unavailable Problems Active Problems Provider Date [...] CPT Code Status Date Vaccine Lot # [id number] Given 09/07/2019 Prevnar 13 22022 Given 08/18/2019 Flublock, Quadrivalent Vital Signs Date Vital Result Comment 08/16/2021 9:44am BP Systolic 110 mmHg BP Diastolic 70 mmHg Heart Rate 78 /min O2 % BldC Oximetry 96 % Height 60 inches 5'0" Weight 166.00 lb BMI (Body Mass Index) 32.4 kg/m2 [place] Body Weight 100 lb Weight 75.298 kg BSA (Body Surface Area) 1.72 m2 07/20/2021 2:01pm BP Systolic 115 mmHg BP Diastolic 68 mmHg Heart Rate 80 /min O2 % BldC Oximetry 992 % Height 60 inches 5'0" Weight 169.38 lb BMI (Body Mass Index) 33.1 kg/m2 [place] Body Weight 100 lb Weight 76.829 kg BSA (Body Surface Area) 1.74 m2 Results Test Acquired Date Facility Test Result H/L Range Note Bal Culture And Gram Stain 06/20/2021 [facility] [address] [place] [address] [phone] Gram Stain (SEE NOTE) Normal 1 Bal Culture FULL REPORT IN L <SEE NOTE> Normal 2 Sputum Culture And Gram Stain 05/23/2021 [facility] [address] [place] [address] [phone] Gram Stain (SEE NOTE) Normal 3 Sputum Culture FULL REPORT IN L <SEE NOTE> Normal 4 Sputum Culture And Gram Stain 04/30/2021 [facility] [address] [place] [address] [phone] Gram Stain (SEE NOTE) Normal 5 Sputum Culture FULL REPORT IN L <SEE NOTE> Normal 6 Sputum Culture And Gram Stain 03/26/2021 [facility] [address] [place] [address] [phone] Gram Stain (SEE NOTE) Normal 7 Sputum [...] ORGANISM Procedures Date Code Description Status 08/16/2021 74422 Office/Outpatient Established Lo w MDM 20-29 Min Completed 07/20/2021 75375 Office/Outpatient Established Mo d MDM 30-39 Min Completed 06/27/2021 34628 Office/Outpatient Established Lo w MDM 20-29 Min Completed 06/27/2021 54911 Remove Impacted Cerumen Complete d 06/26/2021 35505 Office/Outpatient Established Mo d MDM 30-39 Min Completed 06/20/2021 86965 Bronchoscopy W/Bronchial Alveola r Lavage Completed 06/12/2021 49174 Office/Outpatient Established Mo d MDM 30-39 Min Completed 04/17/2021 15538 Office/Outpatient Established Mo d MDM 30-39 Min Completed 03/01/2021 43963 Office/Outpatient Established Mo d MDM 30-39 Min Completed 02/17/2021 27385 Hospital Subsequent Care Level 2 Completed 02/16/2021 22904 Hospital Subsequent Care Level 2 Completed Medical Devices Description No Information Available Encounters Type Date Location Provider Dx Diagnosis Office Visit 08/16/2021 9:45a [facility] Sarah Simmons H90.3 Sensorineural hearing loss, bilateral Office Visit 07/20/2021 2:00p [facility] Ashley Ventura M.D. 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 R04.2 Hemoptysis R91.8 Other nonspecific abnormal f inding of lung field R60.9 Edema, unspecified Office Visit 02/16/2021 1:23a [facility] Ashley Ventura M.D. R04.2 Hemoptysis [...] 09/07/2021 11:15 am - JENN Rodríguez at [facility] * 10/02/2021 2:30 pm - Vic Garcia D.O. at [facility] Functional Status Description No Information Available Mental Status Description No Information Available Referrals Refer to Reason for Referral Status Appt Date [place], Audiology Audiogram Scheduled Nichol Melendrez MD [phone] [facility], [place] [address] [phone] Radiology/Procedure [id number] Closed 04/09/2021
--- OUTSIDE RECORDS SUMMARY | 2021-08-25 12:35 | CCD | Continuity of Care Document ---
Author Author Chantale FRANCIS MD Organization Unknown Address [address] [facility], [address] [place] [address] Phone [phone] Care Team Providers Care Retort Setter Name Role Phone Franca Nicole M.D. AUTM [phone] Marlin Carter M.D. AUTM [phone] AUTM Unavailable Problems Active Problems Provider Date Essential hypertension Won Cope MD Onset: 09/01/2017 Sudden hearing loss Won Cope MD Onset: 09/01/2017 Acute lymphadenitis Won Cope MD Onset: 09/01/2017 Arthralgia of temporomandibular joint Won Coep MD On set: 09/15/2017 Hemoptysis Andrea Acuna [...] CPT Code Status Date Vaccine Lot # [id number] Given 09/07/2019 Prevnar 13 [id number] Given 08/18/2019 Flublock, Quadrivalent Vital Signs Date Vital Result Comment 08/16/2021 9:44am BP Systolic 110 mmHg BP Diastolic 70 mmHg Heart Rate 78 /min O2 % BldC Oximetry 96 % Height 60 inches 5'0" Weight 166.00 lb BMI (Body Mass Index) 32.4 kg/m2 [place] Body Weight 100 lb Weight 75.298 kg BSA (Body Surface Area) 1.72 m2 07/20/2021 2:01pm BP Systolic 115 mmHg BP Diastolic 68 mmHg Heart Rate 80 /min O2 % BldC Oximetry 992 % Height 60 inches 5'0" Weight 169.38 lb BMI (Body Mass Index) 33.1 kg/m2 [place] Body Weight 100 lb Weight 76.829 kg BSA (Body Surface Area) 1.74 m2 Results Test Acquired Date Facility Test Result H/L Range Note Bal Culture And Gram Stain 06/20/2021 [facility] Main Lab [address] [place] [address] [phone] Gram Stain (SEE NOTE) Normal 1 Bal Culture FULL REPORT IN L <SEE NOTE> Normal 2 Sputum Culture And Gram Stain 05/23/2021 [facility] Main Lab [address] [place] [address] 90405 [phone] Gram Stain (SEE NOTE) Normal 3 Sputum Culture FULL REPORT IN L <SEE NOTE> Normal 4 Sputum Culture And Gram Stain 04/30/2021 [facility] Main Lab [address] [place] [address] 22194 [phone] Gram Stain (SEE NOTE) Normal 5 Sputum Culture FULL REPORT IN L <SEE NOTE> Normal 6 Sputum Culture And Gram Stain 03/26/2021 [facility] Main Lab [address] [place] [address] 73773 [phone] Gram Stain (SEE NOTE) Normal 7 Sputum [...] ORGANISM Procedures Date Code Description Status 08/16/2021 84793 Office/Outpatient Established Lo w MDM 20-29 Min Completed 07/20/2021 65192 Office/Outpatient Established Mo d MDM 30-39 Min Completed 06/27/2021 98287 Office/Outpatient Established Lo w MDM 20-29 Min Completed 06/27/2021 78507 Remove Impacted Cerumen Complete d 06/26/2021 14238 Office/Outpatient Established Mo d MDM 30-39 Min Completed 06/20/2021 90668 Bronchoscopy W/Bronchial Alveola r Lavage Completed 06/12/2021 92596 Office/Outpatient Established Mo d MDM 30-39 Min Completed 04/17/2021 08369 Office/Outpatient Established Mo d MDM 30-39 Min Completed 03/01/2021 43512 Office/Outpatient Established Mo d MDM 30-39 Min Completed 02/17/2021 48644 Hospital Subsequent Care Level 2 Completed 02/16/2021 64820 Hospital Subsequent Care Level 2 Completed Medical Devices Description No Information Available Encounters Type Date Location Provider Dx Diagnosis Office Visit 08/16/2021 9:45a [facility] Sarah Simmons H90.3 Sensorineural hearing loss, bilateral Office Visit 07/20/2021 2:00p [facility] Ashley Ventura M.D. 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 R04.2 Hemoptysis R91.8 Other nonspecific abnormal f inding of lung field R60.9 Edema, unspecified Office Visit 02/16/2021 1:23a [facility] Ashley Ventura M.D. R04.2 Hemoptysis C34.90 [...] 09/07/2021 11:15 am - JENN Rodríguez at [facility] * 10/02/2021 2:30 pm - Vic Garcia D.O. at [facility] Functional Status Description No Information Available Mental Status Description No Information Available Referrals Refer to Reason for Referral Status Appt Date [place], Audiology Audiogram Scheduled Nichol Melendrez MD [address] [facility], [place] [address] [phone] Radiology/Procedure [id number] Closed 04/09/2021
--- OUTSIDE RECORDS SUMMARY | 2021-08-25 12:35 | CCD | Continuity of Care Document ---
Author Author Chantale FRANCIS MD Organization Unknown Address [address] [facility], [address] [place] [address] Phone [phone] Care Team Providers Care Medicare Coordinator Name Role Phone Franca Nicole M.D. AUTM [phone] Marlin Carter M.D. AUTM [phone] AUTM Unavailable Problems Active Problems Provider Date [...] CPT Code Status Date Vaccine Lot # [id number] Given 09/07/2019 Prevnar 13 [id number] Given 08/18/2019 Flublock, Quadrivalent Vital Signs Date Vital Result Comment 08/16/2021 9:44am BP Systolic 110 mmHg BP Diastolic 70 mmHg Heart Rate 78 /min O2 % BldC Oximetry 96 % Height 60 inches 5'0" Weight 166.00 lb BMI (Body Mass Index) 32.4 kg/m2 [place] Body Weight 100 lb Weight 75.298 kg BSA (Body Surface Area) 1.72 m2 07/20/2021 2:01pm BP Systolic 115 mmHg BP Diastolic 68 mmHg Heart Rate 80 /min O2 % BldC Oximetry 992 % Height 60 inches 5'0" Weight 169.38 lb BMI (Body Mass Index) 33.1 kg/m2 [place] Body Weight 100 lb Weight 76.829 kg BSA (Body Surface Area) 1.74 m2 Results Test Acquired Date Facility Test Result H/L Range Note Bal Culture And Gram Stain 06/20/2021 [facility] Main Lab [address] [place] [address]1089 [phone] Gram Stain (SEE NOTE) Normal 1 Bal Culture FULL REPORT IN L <SEE NOTE> Normal 2 Sputum Culture And Gram Stain 05/23/2021 [facility] Main Lab [address] [place] [address] 98626 [phone] Gram Stain (SEE NOTE) Normal 3 Sputum Culture FULL REPORT IN L <SEE NOTE> Normal 4 Sputum Culture And Gram Stain 04/30/2021 [facility] Main Lab [address] [place] [address]64 [phone] Gram Stain (SEE NOTE) Normal 5 Sputum Culture FULL REPORT IN L <SEE NOTE> Normal 6 Sputum Culture And Gram Stain 03/26/2021 [facility] Main Lab [address] [place] [address] 94357 [phone] Gram Stain (SEE NOTE) Normal 7 Sputum [...] ORGANISM Procedures Date Code Description Status 08/16/2021 51437 Office/Outpatient Established Lo w MDM 20-29 Min Completed 07/20/2021 75820 Office/Outpatient Established Mo d MDM 30-39 Min Completed 06/27/2021 88531 Office/Outpatient Established Lo w MDM 20-29 Min Completed 06/27/2021 61632 Remove Impacted Cerumen Complete d 06/26/2021 43009 Office/Outpatient Established Mo d MDM 30-39 Min Completed 06/20/2021 89994 Bronchoscopy W/Bronchial Alveola r Lavage Completed 06/12/2021 61792 Office/Outpatient Established Mo d MDM 30-39 Min Completed 04/17/2021 87013 Office/Outpatient Established Mo d MDM 30-39 Min Completed 03/01/2021 15145 Office/Outpatient Established Mo d MDM 30-39 Min Completed 02/17/2021 81006 Hospital Subsequent Care Level 2 Completed 02/16/2021 07863 Hospital Subsequent Care Level 2 Completed Medical Devices Description No Information Available Encounters Type Date Location Provider Dx Diagnosis Office Visit 08/16/2021 9:45a [facility] Sarah Simmons H90.3 Sensorineural hearing loss, bilateral Office Visit 07/20/2021 2:00p [facility] Ashley Ventura M.D. 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 R04.2 Hemoptysis R91.8 Other nonspecific abnormal f inding of lung field R60.9 Edema, unspecified Office Visit 02/16/2021 1:23a [facility] Ashley Ventura M.D. R04.2 Hemoptysis C34.90 [...] 09/07/2021 11:15 am - JENN Rodríguez at [facility] * 10/02/2021 2:30 pm - Vic Garcia D.O. at [facility] Functional Status Description No Information Available Mental Status Description No Information Available Referrals Refer to Reason for Referral Status Appt Date [place], Audiology Audiogram Scheduled Nichol Melendrez MD [address] [facility], [place] [address] [phone] Radiology/Procedure [id number] Closed 04/09/2021
--- OUTSIDE RECORDS SUMMARY | 2021-08-25 12:35 | CCD | Continuity of Care Document ---
Author Author Chantale FRANCIS MD Organization Unknown Address [address] [facility] [address], [address] [place] [address] Phone [phone] Care Team Providers Care Coverage Specialist Rn Name Role Phone Franca Nicole M.D. AUTM [phone] Marlin Carter M.D. AUTM [phone] AUTM Unavailable Problems Active Problems Provider Date [...] syndrome Vic Garcia D.O. Onset: 03/03/2018 Hypoxemia Vic Garcia D.O. Onset: 04/10/2018 Pulmonary embolism Vic Garcia D.O. [...] CPT Code Status Date Vaccine Lot # [id number] Given 09/07/2019 Prevnar 13 [id number] Given 08/18/2019 Flublock, Quadrivalent Vital Signs Date Vital Result Comment 08/16/2021 9:44am BP Systolic 110 mmHg BP Diastolic 70 mmHg Heart Rate 78 /min O2 % BldC Oximetry 96 % Height 60 inches 5'0" Weight 166.00 lb BMI (Body Mass Index) 32.4 kg/m2 [place] Body Weight 100 lb Weight 75.298 kg BSA (Body Surface Area) 1.72 m2 07/20/2021 2:01pm BP Systolic 115 mmHg BP Diastolic 68 mmHg Heart Rate 80 /min O2 % BldC Oximetry 992 % Height 60 inches 5'0" Weight 169.38 lb BMI (Body Mass Index) 33.1 kg/m2 [place] Body Weight 100 lb Weight 76.829 kg BSA (Body Surface Area) 1.74 m2 Results Test Acquired Date Facility Test Result H/L Range Note Bal Culture And Gram Stain 06/20/2021 [facility] Main Lab [address] [place] [address] 14035 [phone] Gram Stain (SEE NOTE) Normal 1 Bal Culture FULL REPORT IN L <SEE NOTE> Normal 2 Sputum Culture And Gram Stain 05/23/2021 [facility] Main Lab [address] [place] [address] 89342 [phone] Gram Stain (SEE NOTE) Normal 3 Sputum Culture FULL REPORT IN L <SEE NOTE> Normal 4 Sputum Culture And Gram Stain 04/30/2021 [facility] Main Lab [address] [place] [address] 75664 [phone] Gram Stain (SEE NOTE) Normal 5 Sputum Culture FULL REPORT IN L <SEE NOTE> Normal 6 Sputum Culture And Gram Stain 03/26/2021 [facility] Main Lab [address] [place] [address] 09592 [phone] Gram Stain (SEE NOTE) Normal 7 Sputum [...] ORGANISM Procedures Date Code Description Status 08/16/2021 81828 Office/Outpatient Established Lo w MDM 20-29 Min Completed 07/20/2021 34552 Office/Outpatient Established Mo d MDM 30-39 Min Completed 06/27/2021 83569 Office/Outpatient Established Lo w MDM 20-29 Min Completed 06/27/2021 86947 Remove Impacted Cerumen Complete d 06/26/2021 76552 Office/Outpatient Established Mo d MDM 30-39 Min Completed 06/20/2021 22231 Bronchoscopy W/Bronchial Alveola r Lavage Completed 06/12/2021 25275 Office/Outpatient Established Mo d MDM 30-39 Min Completed 04/17/2021 18678 Office/Outpatient Established Mo d MDM 30-39 Min Completed 03/01/2021 35340 Office/Outpatient Established Mo d MDM 30-39 Min Completed Medical Devices Description No Information Available Encounters Type Date Location Provider Dx Diagnosis Office Visit 08/16/2021 9:45a [facility] aSrah Simmons H90.3 Sensorineural hearing loss, bilateral Office Visit 07/20/2021 2:00p [facility] Ashley Ventura M.D. 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 03/01/2021 R04.2 Hemoptysis Vic Sears, D.O. 03/01/2021 Z85.118 Personal history of other malignant neoplasm of bronchus and lung Vic Sears, D.O. 03/01/2021 Z86.711 Personal history of pulmonary em bolism Vic Sears, D.O. 03/01/2021 M25.552 Pain in left hip Vic Sears, D.O . Plan of Treatment Future Appointment(s):* 09/07/2021 11:15 am - JENN Rodríguez at [facility] * 10/02/2021 2:30 pm - Vic Garcia D.O. at [facility] Functional Status Description No Information Available Mental Status Description No Information Available Referrals Refer to Reason for Referral Status Appt Date [facility] Audiolog Audiogram Scheduled Nichol Melendrez MD [address] [facility], [place] [address] [phone] Radiology/Procedure [id number] Closed 04/09/2021
--- OUTSIDE RECORDS SUMMARY | 2021-08-25 12:36 | CCD | Continuity of Care Document ---
Author Author Chantale BLAKE P. C. Organization Unknown Address [address] [place] [address] Phone [phone] Care Team Providers Care Manager [employer]olog[employer] Name Role Phone Evelyn Jackman MD AUT Unavailable OSMEL ALVAREZ M.D. P.CKellen RUIZ [phone] Social History Type Date Description Comments Sex Unknown Allergies and adverse reactions Active Allergies Criticality Reaction | Severity Comments Date Penicillin V Unable to assess criticality 08/10/2020 Seafood Unable to assess criticality 08/10/2020 Medications Active Medications SIG Qnty Indications Ordering Provide r Date Cardizem CD 180mg Caps ER 24HR 1 by mouth every day at bedtime 90caps Osmel Alvarez M.D.,[facility] 07/2021 Furosemide 20mg Tablets 1 tab every day 90tamatthew Alvarez M.D.,P.C. 05/31/2021 Potassium Chloride ER 10Meq Capsul es ER 1 cap twice a day 180caps Osmel Alvarez M.D[facility] 05/31/20 21 Multaq 400mg Tablets 1 by mouth twice a day 180tabs Osmel Alvarez M.D[facility] 04/11/20 21 Ferrous Sulfate 325(65Fe) mg Table ts 1 by mouth every day 90tamatthew Alvarez M.D.,P.C. 03/13/20 21 Diltiazem HCL 30mg Tablets take 1 tablet by mouth twice daily 180tabs Osmel Alvarez M[facility] Breo Ellipta 200-25mcg/Inh Aerosol Osmel Alvarez M.D[facility]P.C. [...] 03/13/2021 Vital Signs Date Vital Result Comment 07/05/2021 2:51pm Height 60 inches 5'0" Weight 172.00 lb BMI (Body Mass Index) 33.6 kg/m2 Body Temperature 97.5 F BP Systolic 116 mmHg BP Diastolic 69 mmHg Heart Rate 87 /min O2 % BldC Oximetry 99 % 06/07/2021 2:04pm Height 60 inches 5'0" Weight 174.50 lb BMI (Body Mass Index) 34.1 kg/m2 Body Temperature 96.8 F BP Systolic 108 mmHg BP Diastolic 72 mmHg Heart Rate 95 /min O2 % BldC Oximetry 97 % 3l Results Test Acquired Date Facility Test Result H/L Range Note Comprehensive Metabolic Panel 08/05/2021 [facility] [address] [place], [place] [id number] [phone] Comprehensive Metabo (SEE NOTE) 1 Sodium 139 [...] 60 mL/min 2 CBC W/Automated Diff 08/05/[address] [address] [phone] CBC W/Automated Diff (SEE NOTE) 3 WBC [...] Lymph 6.8 % Low 25.0 - 40.0 Ray 18.9 % High 3.0 - 8.0 Eos 7.2 % High 0.0 - 7.0 Baso 0.4 % 0.0 - 2.5 %Ig 1.3 % High 0.0 - 0.0 %NRBC 0.0 % 0.0 - 0.0 #Neut 3.09 10^3/uL 2.00 - 6.90 #Lymph 0.32 10^3/uL Low 0.60 - 3.40 #Ray 0.89 10^3/uL 0.00 - 0.90 #Eos 0.34 10^3/uL 0.00 - 0.70 #Baso 0.02 10^3/uL 0.00 - 0.20 #Ig 0.06 10^3/uL 0.00 - 0.10 #NRBC 0.00 10^3/uL 0.00 - 0.00 Manual Diff NOT INDICATED RBC Morph NOT INDICATED Laboratory test finding 08/05/[address] [address] [phone] Magnesium Serum 1.8 mg/dL 1.7 - 2.2 CBC W/Automated Diff 08/04/[address] [address] [phone] CBC W/Automated Diff (SEE NOTE) 4 WBC [...] Lymph 7.6 % Low 25.0 - 40.0 Ray 14.3 % High 3.0 - 8.0 Eos 6.7 % 0.0 - 7.0 Baso 0.4 % 0.0 - 2.5 %Ig 1.5 % High 0.0 - 0.0 %NRBC 0.0 % 0.0 - 0.0 #Neut 3.30 10^3/uL 2.00 - 6.90 #Lymph 0.36 10^3/uL Low 0.60 - 3.40 #Ray 0.68 10^3/uL 0.00 - 0.90 #Eos 0.32 10^3/uL 0.00 - 0.70 #Baso 0.02 10^3/uL 0.00 - 0.20 #Ig 0.07 10^3/uL 0.00 - 0.10 #NRBC 0.00 10^3/uL 0.00 - 0.00 Manual Diff NOT INDICATED RBC Morph NOT INDICATED Comprehensive Metabolic Panel 08/04/2021 [facility] [address] [place] [address] [phone] Comprehensive Metabo (SEE NOTE) 5 Sodium 138 [...] 60 mL/min 6 Laboratory test finding 08/04/2021 [facility] [address] [place] [address] [phone] Magnesium Serum 1.4 mg/dL Low 1.7 - 2.2 Iron 29 g/dL Low 42 - 135 Comprehensive Metabolic Panel 08/03/2021 [facility] [address] [place] [address] [phone] Comprehensive Metabo (SEE NOTE) 7, 8 Sodium [...] 60 mL/min 9 Laboratory test finding 08/03/[address] [address] [phone] Magnesium Serum 1.6 mg/dL Low 1.7 - 2.2 CBC W/Automated Diff 08/03/[address] [address] [phone] CBC W/Automated Diff (SEE NOTE) 10 WBC [...] Lymph 5.4 % Low 25.0 - 40.0 Ray 12.1 % High 3.0 - 8.0 Eos 4.5 % 0.0 - 7.0 Baso 0.4 % 0.0 - 2.5 %Ig 1.1 % High 0.0 - 0.0 %NRBC 0.0 % 0.0 - 0.0 #Neut 4.23 10^3/uL 2.00 - 6.90 #Lymph 0.30 10^3/uL Low 0.60 - 3.40 #Ray 0.67 10^3/uL 0.00 - 0.90 #Eos 0.25 10^3/uL 0.00 - 0.70 #Baso 0.02 10^3/uL 0.00 - 0.20 #Ig 0.06 10^3/uL 0.00 - 0.10 #NRBC 0.00 10^3/uL 0.00 - 0.00 Manual Diff SEE BELOW Segs 81 % High 37 - 80 %Lymph 6 % Low 25 - 40 %Ray 9 % High 3 - 8 %Eos 4 % 0 - 7 RBC Morph SEE BELOW Aniso 1+ Abnormal Normal: None Seen Macro 1+ Abnormal Normal: None Seen Poik 1+ Abnormal Normal: None Seen 11 Ovalocytes 1+ Abnormal Normal: None Seen Hyper Neut 2+ Abnormal Normal: None Seen PLT Est DECREASED Abnormal Normal: Normal 12 Laboratory test finding 08/02/2021 [facility] [address] [place] [address] [phone] Pro-BNP 2923 pg/mL High 0 - 125 Iron 25 g/dL Low 42 - 135 Vitamin B12 Serum 346 pg/mL 232 - 1245 Comprehensive Metabolic Panel 08/02/2021 [facility] [address] [place], [place] [id number] [phone] Comprehensive Metabo (SEE NOTE) 13 Sodium 136 [...] 60 mL/min 14 CBC W/Automated Diff 08/02/[address] [address] [phone] CBC W/Automated Diff (SEE NOTE) 15 WBC [...] Lymph 3.9 % Low 25.0 - 40.0 Ray 6.0 % 3.0 - 8.0 Eos 3.0 % 0.0 - 7.0 Baso 0.4 % 0.0 - 2.5 %Ig 0.5 % High 0.0 - 0.0 %NRBC 0.0 % 0.0 - 0.0 #Neut 6.62 10^3/uL 2.00 - 6.90 #Lymph 0.30 10^3/uL Low 0.60 - 3.40 #Ray 0.46 10^3/uL 0.00 - 0.90 #Eos 0.23 10^3/uL 0.00 - 0.70 #Baso 0.03 10^3/uL 0.00 - 0.20 #Ig 0.04 10^3/uL 0.00 - 0.10 #NRBC 0.00 10^3/uL 0.00 - 0.00 Manual Diff SEE BELOW Segs 84 % High 37 - 80 %Lymph 6 % Low 25 - 40 %Ray 3 % 3 - 8 %Eos 7 % 0 - 7 RBC Morph SEE BELOW Aniso 2+ Abnormal Normal: None Seen Hypo 1+ Abnormal Normal: None Seen 16 PLT Est DECREASED Abnormal Normal: Normal 17 Laboratory test finding 08/02/[address] [address] [phone] D-Dimer 3.59 ug/mL High 0.27 - 0.50 Lactic Acid (Lactate) 0.7 mmol/L 0.2 - 2.2 Magnesium Serum 1.7 mg/dL 1.7 - 2.2 CBC W/Automated Diff 04/20/[address] [address] [phone] CBC W/Automated Diff (SEE NOTE) 18 WBC [...] Lymph 4.9 % Low 25.0 - 40.0 Ray 10.8 % High 3.0 - 8.0 Eos 2.5 % 0.0 - 7.0 Baso 0.2 % 0.0 - 2.5 %Ig 1.0 % High 0.0 - 0.0 %NRBC 0.0 % 0.0 - 0.0 #Neut 4.77 10^3/uL 2.00 - 6.90 #Lymph 0.29 10^3/uL Low 0.60 - 3.40 #Ray 0.64 10^3/uL 0.00 - 0.90 #Eos 0.15 10^3/uL 0.00 - 0.70 #Baso 0.01 10^3/uL 0.00 - 0.20 #Ig 0.06 10^3/uL 0.00 - 0.10 #NRBC 0.00 10^3/uL 0.00 - 0.00 Manual Diff SEE BELOW Segs 87 % High 37 - 80 %Lymph 2 % Low 25 - 40 %Ray 9 % High 3 - 8 %Eos 2 % 0 - 7 RBC Morph SEE BELOW Aniso 1+ Abnormal Normal: None Seen Macro 1+ Abnormal Normal: None Seen Poik 1+ Abnormal Normal: None Seen 19 PLT Est NORMAL Normal: Normal 20 Comprehensive Metabolic Panel 04/20/2021 [facility] [address] [place] [address] [phone] Comprehensive Metabo (SEE NOTE) 21 Sodium 138 [...] >60 mL/min 22 Laboratory test finding 04/20/[address] [address] [phone] Magnesium Serum 1.7 mg/dL 1.7 - 2.2 23 CBC W/Automated Diff 04/19/[address] [address] [phone] CBC W/Automated Diff (SEE NOTE) 24 WBC [...] Lymph 6.5 % Low 25.0 - 40.0 Ray 4.7 % 3.0 - 8.0 Eos 2.2 % 0.0 - 7.0 Baso 0.3 % 0.0 - 2.5 %Ig 0.4 % High 0.0 - 0.0 %NRBC 0.0 % 0.0 - 0.0 #Neut 6.25 10^3/uL 2.00 - 6.90 #Lymph 0.47 10^3/uL Low 0.60 - 3.40 #Ray 0.34 10^3/uL 0.00 - 0.90 #Eos 0.16 10^3/uL 0.00 - 0.70 #Baso 0.02 10^3/uL 0.00 - 0.20 #Ig 0.03 10^3/uL 0.00 - 0.10 #NRBC 0.00 10^3/uL 0.00 - 0.00 Manual Diff NOT INDICATED RBC Morph NOT INDICATED Comprehensive Metabolic Panel 04/19/2021 [facility] [address] [place] [address] [phone] Comprehensive Metabo (SEE NOTE) 25 Sodium 136 [...] >60 mL/min 26 Laboratory test finding 04/19/2021 [facility] [address] [place] [address] [phone] Magnesium Serum 1.5 mg/dL Low 1.7 - 2.2 Pro-BNP 692 pg/mL High 0 - 125 Iron 45 g/dL 42 - 135 Laboratory test finding [facility] [address] [place] [address] [phone] Troponin T 0.02 NG/ML 0.00 - 0.10 27 Laboratory test finding 04/18/2021 [facility] [address] [place] [address] [phone] Pro-BNP 766 pg/mL High 0 - 125 TSH Highly Sensitive 1.68 uIU/mL 0.47 - 5.01 Iron 77 g/dL 42 - 135 Vitamin B12 Serum 390 pg/mL 232 - 1245 Comprehensive Metabolic Panel 04/18/2021 [facility] [address] [place] [address] [phone] Comprehensive Metabo (SEE NOTE) 28 Sodium 141 [...] >60 mL/min 29 CBC W/Automated Diff 04/18/2021 [place] [address] [phone] CBC W/Automated Diff (SEE NOTE) 30 WBC [...] Lymph 5.7 % Low 25.0 - 40.0 Ray 2.7 % Low 3.0 - 8.0 Eos 2.0 % 0.0 - 7.0 Baso 0.2 % 0.0 - 2.5 %Ig 0.6 % High 0.0 - 0.0 %NRBC 0.0 % 0.0 - 0.0 #Neut 7.88 10^3/uL High 2.00 - 6.90 #Lymph 0.51 10^3/uL Low 0.60 - 3.40 #Ray 0.24 10^3/uL 0.00 - 0.90 #Eos 0.18 10^3/uL 0.00 - 0.70 #Baso 0.02 10^3/uL 0.00 - 0.20 #Ig 0.05 10^3/uL 0.00 - 0.10 #NRBC 0.00 10^3/uL 0.00 - 0.00 Manual Diff NOT INDICATED RBC Morph NOT INDICATED Laboratory test finding 04/18/[address] [address] [phone] Troponin T 0.02 NG/ML 0.00 - 0.10 31 Laboratory test finding 04/18/[address] [address] [phone] Troponin T 0.02 NG/ML 0.00 - 0.10 32 Magnesium Serum 1.7 mg/dL 1.7 - 2.2 T4 - Free 1.23 ng/dL 0.93 - 1.70 Covid-19 04/17/2021 [place] [id number] [phone] Covid-19 NOT DETECTED 33 Covid-19 [place] NOT DETECTED 34 CBC W/Automated Diff 04/11/2021 [place] [address] [phone] CBC W/Automated Diff (SEE NOTE) 35 WBC [...] Lymph 11.4 % Low 25.0 - 40.0 Ray 8.9 % High 3.0 - 8.0 Eos 0.0 % 0.0 - 7.0 Baso 0.1 % 0.0 - 2.5 %Ig 1.0 % High 0.0 - 0.0 %NRBC 0.0 % 0.0 - 0.0 #Neut 5.66 10^3/uL 2.00 - 6.90 #Lymph 0.82 10^3/uL 0.60 - 3.40 #Ray 0.64 10^3/uL 0.00 - 0.90 #Eos 0.00 10^3/uL 0.00 - 0.70 #Baso 0.01 10^3/uL 0.00 - 0.20 #Ig 0.07 10^3/uL 0.00 - 0.10 #NRBC 0.00 10^3/uL 0.00 - 0.00 Manual Diff NOT INDICATED RBC Morph NOT INDICATED Comprehensive Metabolic Panel 04/11/2021 [facility] [place] [id number] [phone] Comprehensive Metabo (SEE NOTE) 36 Sodium 139 [...] >60 mL/min 37 Laboratory test finding 04/11/[address] [address] [phone] Magnesium Serum 1.5 mg/dL Low 1.7 - 2.2 CBC W/Automated Diff 03/21/[address] [address] [phone] CBC W/Automated Diff (SEE NOTE) 38 WBC [...] Lymph 12.5 % Low 25.0 - 40.0 Ray 12.8 % High 3.0 - 8.0 Eos 2.2 % 0.0 - 7.0 Baso 1.1 % 0.0 - 2.5 %Ig 0.5 % High 0.0 - 0.0 %NRBC 0.0 % 0.0 - 0.0 #Neut 5.39 10^3/uL 2.00 - 6.90 #Lymph 0.95 10^3/uL 0.60 - 3.40 #Ray 0.97 10^3/uL High 0.00 - 0.90 #Eos 0.17 10^3/uL 0.00 - 0.70 #Baso 0.08 10^3/uL 0.00 - 0.20 #Ig 0.04 10^3/uL 0.00 - 0.10 #NRBC 0.00 10^3/uL 0.00 - 0.00 Manual Diff NOT INDICATED RBC Morph NOT INDICATED Comprehensive Metabolic Panel 03/21/2021 [facility] [address] [place] [address] [phone] Comprehensive Metabo (SEE NOTE) 39 Sodium 139 [...] >60 mL/min 40 Laboratory test finding 03/21/[address] [address] [phone] Magnesium Serum 1.3 mg/dL Low 1.7 - 2.2 Comprehensive Metabolic Panel 03/16/2021 [facility] [address] [place] [address] [phone] Comprehensive Metabo (SEE NOTE) 41 Sodium 139 [...] >60 mL/min 42 Laboratory test finding 03/16/[address] [address] [phone] Vitamin B12 Serum 573 pg/mL 232 - 1245 Magnesium Serum 03/16/[address] [address] [phone] Magnesium 0.9 mg/dL Critical low 1.7 - 2.2 Call/ Read Back SHIVANI MATA RN By: DESIRAE Date/Time 03.16.21904 Laboratory test finding 03/16/[address] [address] [phone] Iron 46 g/dL 42 - 135 T4 - Free 1.54 ng/dL 0.93 - 1.70 TSH Highly Sensitive 1.34 uIU/mL 0.47 - 5.01 CBC W/Automated Diff 03/16/[address] [address] [phone] CBC W/Automated Diff (SEE NOTE) 43 WBC [...] Lymph 9.7 % Low 25.0 - 40.0 Ray 13.2 % High 3.0 - 8.0 Eos 0.8 % 0.0 - 7.0 Baso 0.5 % 0.0 - 2.5 %Ig 0.4 % High 0.0 - 0.0 %NRBC 0.0 % 0.0 - 0.0 #Neut 6.94 10^3/uL High 2.00 - 6.90 #Lymph 0.89 10^3/uL 0.60 - 3.40 #Ray 1.21 10^3/uL High 0.00 - 0.90 #Eos 0.07 10^3/uL 0.00 - 0.70 #Baso 0.05 10^3/uL 0.00 - 0.20 #Ig 0.04 10^3/uL 0.00 - 0.10 #NRBC 0.00 10^3/uL 0.00 - 0.00 Manual Diff SEE BELOW Segs 81 % High 37 - 80 %Lymph 4 % Low 25 - 40 %Ray 14 % High 3 - 8 %Eos 1 % 0 - 7 RBC Morph SEE BELOW Aniso 1+ Abnormal Normal: None Seen Hypo 1+ Abnormal Normal: None Seen 44 Stomatocytes 1+ Abnormal Normal: None Seen 45 CBC W/Automated Diff 03/08/[address] [address] [phone] CBC W/Automated Diff (SEE NOTE) 46 WBC [...] Lymph 9.2 % Low 25.0 - 40.0 Ray 16.8 % High 3.0 - 8.0 Eos 0.5 % 0.0 - 7.0 Baso 0.8 % 0.0 - 2.5 %Ig 1.2 % High 0.0 - 0.0 %NRBC 0.0 % 0.0 - 0.0 #Neut 6.13 10^3/uL 2.00 - 6.90 #Lymph 0.79 10^3/uL 0.60 - 3.40 #Ray 1.44 10^3/uL High 0.00 - 0.90 #Eos 0.04 10^3/uL 0.00 - 0.70 #Baso 0.07 10^3/uL 0.00 - 0.20 #Ig 0.10 10^3/uL 0.00 - 0.10 #NRBC 0.00 10^3/uL 0.00 - 0.00 Manual Diff SEE BELOW Segs 76 % 37 - 80 %Lymph 12 % Low 25 - 40 %Ray 10 % High 3 - 8 %Eos 2 % 0 - 7 RBC Morph SEE BELOW Aniso 1+ Abnormal Normal: None Seen Poik 1+ Abnormal Normal: None Seen Hypo 1+ Abnormal Normal: None Seen 47 Ovalocytes 1+ Abnormal Normal: None Seen Stomatocytes 1+ Abnormal Normal: None Seen 48 Laboratory test finding 03/08/2021 [facility] [address] [place] [address] [phone] Hgba1c 4.8 % 4.4 - 6.1 49 Iron 41 g/dL Low 42 - 135 Comprehensive Metabolic Panel 03/08/2021 [facility] [address] [place] [address] [phone] Comprehensive Metabo (SEE NOTE) 50 Sodium 141 [...] >60 mL/min 51 Laboratory test finding 03/08/[address] [address] [phone] Vitamin B12 Serum 527 pg/mL 232 - 1245 Urinalysis 03/08/[address] [address] [phone] Urinalysis (SEE NOTE) 52 Source R Color yellow Normal: Yellow Clarity hazy Normal: Clear Spec [place] 1.015 1.001 - 1.030 pH 6 5 [...] Normal: None Seen Laboratory test finding 03/08/[address] [phone] Magnesium Serum 1.0 mg/dL Low 1.7 - 2.2 Culture Urine 03/08/[address] [address] [phone] Culture Urine (SEE NOTE) 53 1 COMPREHENSIVE [...] Troponin T. 33 First test?: N~Employed in [facility]?: N~Symptomatic as defined by CDC?: N~Hospitalized?: Y [...] mL/min Normal 52 URINALYSIS 53 _CULTURE URINE_ ^$655095 ^^064273 $$976121 ^^725427 $$335299 $$834449 $$164931 $$088795 $$252949 $$512433 $$604870 $$582791 $$675951 $$705756 $$402523 $$366918 $$377446 $$305811 $$760698 $$153620 $$226645 $$567839 $$728075 $$452550 $$696785 $$110467 $$691143 ^^579704 $$920735 $$659715 $$254242 -- Continued on next page -- Patient: JUANITO Daniels Order: [id number] Page 2 Culture: CULTURE URINE Status: Final -- Continued on next page -- Patient: JUANITO Daniels Order: [id number] Page 2 Culture: CULTURE URINE Status: Prelim $$[id number] $$[id number] REPORTED DATE/TIME: 03/13/2021 07:06 Culture: CULTURE URINE Status: Final Urine Culture,Comprehensive: P1 No growth in 36 - 48 hours. Previous result entered on 03/10/2021 23:58 ET No growth after 18-24 hours. P1 [facility]: [id number] [address] [place] [id number] [facility] [address] Front Office Help : Yonas Rascon MD NPI #: Senior Health Consultant : [email or web address] REF 03/13/[email or web address] REF Procedures Date Code Description Status 07/05/2021 97209 EKG Completed 07/05/2021 97995 Office/Outpatient Established Mo d MDM 30-39 Min Completed 06/07/2021 68166 Carotid Duplex Scan Bilat Comple domenico 05/31/2021 60009 Office/Outpatient Established Mo d MDM 30-39 Min Completed 05/31/2021 04945 EKG Completed 04/30/2021 05490 Office/Outpatient Established Mo d MDM 30-39 Min Completed 04/30/2021 30518 EKG Completed 04/20/2021 08920 Observation Discharge Completed 04/19/2021 74000 Office/Outpatient Established Mo d MDM 30-39 Min Completed 04/18/2021 57794 Observation Subsequent Level 2 C ompleted 04/17/2021 82171 Observation Initial 2 Completed 03/21/2021 40651 Office/Outpatient Established Mo d MDM 30-39 Min Completed 03/16/2021 93966 Office/Outpatient Established Mo d MDM 30-39 Min Completed 03/16/2021 00204 EKG Completed 03/15/2021 96694 Office/Outpatient Established Lo w MDM 20-29 Min Completed 03/15/2021 97921 EKG Completed 03/13/2021 60653 Office/Outpatient Established Lo w MDM 20-29 Min Completed 03/09/2021 56549 24 Hour Holter Monitoring Comple domenico 03/08/2021 86093 Office/Outpatient Established Mo d MDM 30-39 Min Completed 03/08/2021 92251 EKG Completed Encounters Type Date Location Provider Dx Diagnosis Office Visit 07/05/2021 2:45p [facility] Osmel Alvarez M.D.,[facility]. C. I48.0 Paroxysmal atrial fibrillation I11.9 [facility]49 Other premature depolarizati on Office Visit 05/31/2021 2:15p [facility] Osmel Alvarez M.D[facility]. I48.0 Paroxysmal atrial fibrillation J43.9 Emphysema, unspecified I11.9 [facility] I[facility].49 Other premature depolarizati on Office Visit 04/30/2021 2:45p [facility] Osmel Alvarez M.D[facility]. I11.9 Hypertensive heart disease without heart failure I48.0 Paroxysmal atrial fibrillati on I26.99 Other pulmonary embolism wit hout acute cor pulmonale I49.49 Other premature depolarizati on Office Visit 03/21/2021 11:15a [facility] Osmel Alvarez M.D[facility]. E83.42 Hypomagnesemia J44.9 Chronic obstructive pulmonar y disease, unspecified R00.0 Tachycardia, unspecified Office Visit 03/16/2021 9:45a [facility] Osmel Alvarez M[facility] R00.0 Tachycardia, unspecified E87.6 Hypokalemia E83.42 Hypomagnesemia I49.49 Other premature depolarizati on Office Visit 03/15/2021 3:00p [facility] Osmel Alvarez M.D[facility]. [facility]. I11.9 Hypertensive heart disease without heart failure R00.0 Tachycardia, unspecified R00.2 Palpitations I49.49 Other premature depolarizati on Office Visit 03/13/2021 10:00a [facility] Osmel Alvarez M.D[facility]. [facility]. I50.20 Unspecified systolic (congestive) heart failure I11.9 [facility] R00.0 Tachycardia, unspecified Office Visit 03/08/2021 10:15a [facility] Osmel Alvarez M.D[facility]. R00.2 Palpitations R42 Dizziness and giddiness I95.9 Hypotension, unspecified I49.49 Other premature depolarizati on Assessments Date Code Description Provider 07/05/2021 I48.0 Paroxysmal atrial fibrillation Sarah Alvarez M.D[facility]. 07/05/2021 I11.9 Hypertensive heart disease witho nv heart failure Osmel Alvarez M.D[facility]. 07/05/2021 I49.49 Other premature depolarization Sarah Alvarez M[facility] 06/07/2021 G45.9 Transient cerebral ischemic kierra ck, connie Alvarez M.D.,[facility]. 06/07/2021 R42 Dizziness and giddiness Osmel yun M.D.,[facility]. 05/31/2021 I48.0 Paroxysmal atrial fibrillation Sarah Alvarez M.D[facility] 05/31/2021 J43.9 Emphysema, marcelaified Osmel white M.D[facility]. 05/31/2021 I11.9 Hypertensive heart disease witho nv heart failure Osmel Alvarez M.D[facility] 05/31/2021 I49.49 Other premature depolarization Sarah Alvarez M.D[facility]. 04/30/2021 I11.9 Hypertensive heart disease witho nv heart failure Osmel Alvarez M.D[facility]. 04/30/2021 I48.0 [...] M.D.,P.C. 03/15/2021 I11.9 Hypertensive heart disease witho nv heart failure Osmel Alvarez M.D[facility] 03/15/2021 R00.0 Tachycardia, unspecified Osmel anderson M.D[facility]. 03/15/2021 R00.2 Palpitations Evelyn Blake,P.C. 03/15/2021 I49.49 Other premature depolarization Sarah Alvarez M.D[facility] 03/13/2021 I50.20 Unspecified systolic (congestive ) heart failure Osmel Alvarez M.D[facility]. 03/13/2021 I11.9 Hypertensive heart disease witho nv heart failure Osmel Alvarez M.D[facility]. 03/13/2021 R00.0 Tachycardia, unspecified Osmel anderson M.D[facility]. 03/09/2021 R00.2 Palpitations Evelyn Blake,P.C. 03/08/2021 R00.2 Palpitations Evelyn Blake,P.C. 03/08/2021 R42 Dizziness and giddiness Osmel yun M.D.,[facility]. 03/08/2021 I95.9 Hypotension, unspecified Osmel anderson M.D[facility]. 03/08/2021 I49.49 Other premature depolarization M bonnie Alvarez M.D.,P.C. Plan of Treatment Future Appointment(s):* 08/08/2021 11:00 am - Osmel Alvarez M[facility] at [facility] Referrals Refer to Reason for Referral Status Appt Date Evelyn Jackman MD Please eval. and treat this patient for Afib, She needs an ablation. Thank you. Scheduled 05/21/[address] [facility] [address]
--- OUTSIDE RECORDS SUMMARY | 2021-08-25 12:36 | CCD | Continuity of Care Document ---
Author Author Chantale BLAKE P. C. Organization Unknown Address [address] [place] [phone] Phone [phone] Care Team Providers Care Pig Farm Manager Name Role Phone Evelyn Jackman MD AUT Unavailable OSMEL ALVAREZ M.D. P.CKellen RUIZ [phone] Social History Type Date Description Comments Sex [...] H/L Range Note Comprehensive Metabolic Panel 08/05/2021 [facility] [address] [place], [place] [address] [phone] Comprehensive Metabo (SEE NOTE) 1 Sodium 139 [...] 60 mL/min 2 CBC W/Automated Diff 08/05/[address] [address] [phone] CBC W/Automated Diff (SEE NOTE) 3 WBC [...] Lymph 6.8 % Low 25.0 - 40.0 [place] 18.9 % High 3.0 - 8.0 Eos 7.2 % High 0.0 - 7.0 Baso 0.4 % 0.0 - 2.5 %Ig 1.3 % High 0.0 - 0.0 %NRBC 0.0 % 0.0 - 0.0 #Neut 3.09 10^3/uL 2.00 - 6.90 #Lymph 0.32 10^3/uL Low 0.60 - 3.40 #[place] 0.89 10^3/uL 0.00 - 0.90 #Eos 0.34 10^3/uL 0.00 - 0.70 #Baso 0.02 10^3/uL 0.00 - 0.20 #Ig 0.06 10^3/uL 0.00 - 0.10 #NRBC 0.00 10^3/uL 0.00 - 0.00 Manual Diff NOT INDICATED RBC Morph NOT INDICATED Laboratory test finding 08/05/[address] [address] [phone] Magnesium Serum 1.8 mg/dL 1.7 - 2.2 CBC W/Automated Diff 08/04/[address] [address] [phone] CBC W/Automated Diff (SEE NOTE) 4 WBC [...] Lymph 7.6 % Low 25.0 - 40.0 [place] 14.3 % High 3.0 - 8.0 Eos 6.7 % 0.0 - 7.0 Baso 0.4 % 0.0 - 2.5 %Ig 1.5 % High 0.0 - 0.0 %NRBC 0.0 % 0.0 - 0.0 #Neut 3.30 10^3/uL 2.00 - 6.90 #Lymph 0.36 10^3/uL Low 0.60 - 3.40 #[place] 0.68 10^3/uL 0.00 - 0.90 #Eos 0.32 10^3/uL 0.00 - 0.70 #Baso 0.02 10^3/uL 0.00 - 0.20 #Ig 0.07 10^3/uL 0.00 - 0.10 #NRBC 0.00 10^3/uL 0.00 - 0.00 Manual Diff NOT INDICATED RBC Morph NOT INDICATED Comprehensive Metabolic Panel 08/04/2021 [facility] [address] [place] [address] [phone] Comprehensive Metabo (SEE NOTE) 5 Sodium 138 [...] 60 mL/min 6 Laboratory test finding 08/04/2021 [facility] [address] [place] [address] [phone] Magnesium Serum 1.4 mg/dL Low 1.7 - 2.2 Iron 29 g/dL Low 42 - 135 Comprehensive Metabolic Panel 08/03/2021 [facility] [address] [place] [address] [phone] Comprehensive Metabo (SEE NOTE) 7, 8 Sodium [...] 60 mL/min 9 Laboratory test finding 08/03/[address] [address] [phone] Magnesium Serum 1.6 mg/dL Low 1.7 - 2.2 CBC W/Automated Diff 08/03/[address] [address] [phone] CBC W/Automated Diff (SEE NOTE) 10 WBC [...] Lymph 5.4 % Low 25.0 - 40.0 [place] 12.1 % High 3.0 - 8.0 Eos 4.5 % 0.0 - 7.0 Baso 0.4 % 0.0 - 2.5 %Ig 1.1 % High 0.0 - 0.0 %NRBC 0.0 % 0.0 - 0.0 #Neut 4.23 10^3/uL 2.00 - 6.90 #Lymph 0.30 10^3/uL Low 0.60 - 3.40 #[place] 0.67 10^3/uL 0.00 - 0.90 #Eos 0.25 10^3/uL 0.00 - 0.70 #Baso 0.02 10^3/uL 0.00 - 0.20 #Ig 0.06 10^3/uL 0.00 - 0.10 #NRBC 0.00 10^3/uL 0.00 - 0.00 Manual Diff SEE BELOW Segs 81 % High 37 - 80 %Lymph 6 % Low 25 - 40 %[place] 9 % High 3 - 8 %Eos 4 % 0 - 7 RBC Morph SEE BELOW [place] 1+ Abnormal Normal: None Seen Macro 1+ Abnormal Normal: None Seen Poik 1+ Abnormal Normal: None Seen 11 Ovalocytes 1+ Abnormal Normal: None Seen Hyper Neut 2+ Abnormal Normal: None Seen PLT Est DECREASED Abnormal Normal: Normal 12 Laboratory test finding 08/02/2021 [facility] [address] [place] [address] [phone] Pro-BNP 2923 pg/mL High 0 - 125 Iron 25 g/dL Low 42 - 135 Vitamin B12 Serum 346 pg/mL 232 - 1245 Comprehensive Metabolic Panel 08/02/2021 [facility] [address], [place] [id number] [phone] Comprehensive Metabo (SEE NOTE) 13 Sodium 136 [...] 60 mL/min 14 CBC W/Automated Diff 08/02/[address] [address] [phone] CBC W/Automated Diff (SEE NOTE) 15 WBC [...] Lymph 3.9 % Low 25.0 - 40.0 [place] 6.0 % 3.0 - 8.0 Eos 3.0 % 0.0 - 7.0 Baso 0.4 % 0.0 - 2.5 %Ig 0.5 % High 0.0 - 0.0 %NRBC 0.0 % 0.0 - 0.0 #Neut 6.62 10^3/uL 2.00 - 6.90 #Lymph 0.30 10^3/uL Low 0.60 - 3.40 #[place] 0.46 10^3/uL 0.00 - 0.90 #Eos 0.23 10^3/uL 0.00 - 0.70 #Baso 0.03 10^3/uL 0.00 - 0.20 #Ig 0.04 10^3/uL 0.00 - 0.10 #NRBC 0.00 10^3/uL 0.00 - 0.00 Manual Diff SEE BELOW Segs 84 % High 37 - 80 %Lymph 6 % Low 25 - 40 %[place] 3 % 3 - 8 %Eos 7 % 0 - 7 RBC Morph SEE BELOW [place] 2+ Abnormal Normal: None Seen Hypo 1+ Abnormal Normal: None Seen 16 PLT Est DECREASED Abnormal Normal: Normal 17 Laboratory test finding 08/02/[address] [address] [phone] D-Dimer 3.59 ug/mL High 0.27 - 0.50 Lactic Acid (Lactate) 0.7 mmol/L 0.2 - 2.2 Magnesium Serum 1.7 mg/dL 1.7 - 2.2 CBC W/Automated Diff 04/20/[address] [address] [phone] CBC W/Automated Diff (SEE NOTE) 18 WBC [...] Lymph 4.9 % Low 25.0 - 40.0 [place] 10.8 % High 3.0 - 8.0 Eos 2.5 % 0.0 - 7.0 Baso 0.2 % 0.0 - 2.5 %Ig 1.0 % High 0.0 - 0.0 %NRBC 0.0 % 0.0 - 0.0 #Neut 4.77 10^3/uL 2.00 - 6.90 #Lymph 0.29 10^3/uL Low 0.60 - 3.40 #[place] 0.64 10^3/uL 0.00 - 0.90 #Eos 0.15 10^3/uL 0.00 - 0.70 #Baso 0.01 10^3/uL 0.00 - 0.20 #Ig 0.06 10^3/uL 0.00 - 0.10 #NRBC 0.00 10^3/uL 0.00 - 0.00 Manual Diff SEE BELOW Segs 87 % High 37 - 80 %Lymph 2 % Low 25 - 40 %[place] 9 % High 3 - 8 %Eos 2 % 0 - 7 RBC Morph SEE BELOW [place] 1+ Abnormal Normal: None Seen Macro 1+ Abnormal Normal: None Seen Poik 1+ Abnormal Normal: None Seen 19 PLT Est NORMAL Normal: Normal 20 Comprehensive Metabolic Panel 04/20/2021 [facility] [address] [place] [phone] [phone] Comprehensive Metabo (SEE NOTE) 21 Sodium 138 [...] >60 mL/min 22 Laboratory test finding 04/20/[address] [address] [phone] Magnesium Serum 1.7 mg/dL 1.7 - 2.2 23 CBC W/Automated Diff 04/19/[address] [address] [phone] CBC W/Automated Diff (SEE NOTE) 24 WBC [...] Lymph 6.5 % Low 25.0 - 40.0 [place] 4.7 % 3.0 - 8.0 Eos 2.2 % 0.0 - 7.0 Baso 0.3 % 0.0 - 2.5 %Ig 0.4 % High 0.0 - 0.0 %NRBC 0.0 % 0.0 - 0.0 #Neut 6.25 10^3/uL 2.00 - 6.90 #Lymph 0.47 10^3/uL Low 0.60 - 3.40 #[place] 0.34 10^3/uL 0.00 - 0.90 #Eos 0.16 10^3/uL 0.00 - 0.70 #Baso 0.02 10^3/uL 0.00 - 0.20 #Ig 0.03 10^3/uL 0.00 - 0.10 #NRBC 0.00 10^3/uL 0.00 - 0.00 Manual Diff NOT INDICATED RBC Morph NOT INDICATED Comprehensive Metabolic Panel 04/19/2021 [facility] [address] [place] [address] [phone] Comprehensive Metabo (SEE NOTE) 25 Sodium 136 [...] >60 mL/min 26 Laboratory test finding 04/19/2021 [facility] [address] [place] [address] [phone] Magnesium Serum 1.5 mg/dL Low 1.7 - 2.2 Pro-BNP 692 pg/mL High 0 - 125 Iron 45 g/dL 42 - 135 Laboratory test finding [facility] [address] [place] [address] [phone] Troponin T 0.02 NG/ML 0.00 - 0.10 27 Laboratory test finding 04/18/2021 [facility] [address] [place] [address] [phone] Pro-BNP 766 pg/mL High 0 - 125 TSH Highly Sensitive 1.68 uIU/mL 0.47 - 5.01 Iron 77 g/dL 42 - 135 Vitamin B12 Serum 390 pg/mL 232 - 1245 Comprehensive Metabolic Panel 04/18/2021 [facility] [address] [place] [address] [phone] Comprehensive Metabo (SEE NOTE) 28 Sodium 141 [...] >60 mL/min 29 CBC W/Automated Diff 04/18/2021 [place] [address] [phone] CBC W/Automated Diff (SEE NOTE) 30 WBC [...] Lymph 5.7 % Low 25.0 - 40.0 [place] 2.7 % Low 3.0 - 8.0 Eos 2.0 % 0.0 - 7.0 Baso 0.2 % 0.0 - 2.5 %Ig 0.6 % High 0.0 - 0.0 %NRBC 0.0 % 0.0 - 0.0 #Neut 7.88 10^3/uL High 2.00 - 6.90 #Lymph 0.51 10^3/uL Low 0.60 - 3.40 #[place] 0.24 10^3/uL 0.00 - 0.90 #Eos 0.18 10^3/uL 0.00 - 0.70 #Baso 0.02 10^3/uL 0.00 - 0.20 #Ig 0.05 10^3/uL 0.00 - 0.10 #NRBC 0.00 10^3/uL 0.00 - 0.00 Manual Diff NOT INDICATED RBC Morph NOT INDICATED Laboratory test finding 04/18/[address] [address] [phone] Troponin T 0.02 NG/ML 0.00 - 0.10 31 Laboratory test finding 04/18/[address] [address] [phone] Troponin T 0.02 NG/ML 0.00 - 0.10 32 Magnesium Serum 1.7 mg/dL 1.7 - 2.2 T4 - Free 1.23 ng/dL 0.93 - 1.70 Covid-19 04/17/2021 [place] [id number] [phone] Covid-19 NOT DETECTED 33 Covid-19 [place] NOT DETECTED 34 CBC W/Automated Diff 04/11/2021 [place] [address] [phone] CBC W/Automated Diff (SEE NOTE) 35 WBC [...] Lymph 11.4 % Low 25.0 - 40.0 [place] 8.9 % High 3.0 - 8.0 Eos 0.0 % 0.0 - 7.0 Baso 0.1 % 0.0 - 2.5 %Ig 1.0 % High 0.0 - 0.0 %NRBC 0.0 % 0.0 - 0.0 #Neut 5.66 10^3/uL 2.00 - 6.90 #Lymph 0.82 10^3/uL 0.60 - 3.40 #[place] 0.64 10^3/uL 0.00 - 0.90 #Eos 0.00 10^3/uL 0.00 - 0.70 #Baso 0.01 10^3/uL 0.00 - 0.20 #Ig 0.07 10^3/uL 0.00 - 0.10 #NRBC 0.00 10^3/uL 0.00 - 0.00 Manual Diff NOT INDICATED RBC Morph NOT INDICATED Comprehensive Metabolic Panel 04/11/2021 [facility] [place] [phone] Comprehensive Metabo (SEE NOTE) 36 Sodium 139 [...] >60 mL/min 37 Laboratory test finding 04/11/[address] [address] [phone] Magnesium Serum 1.5 mg/dL Low 1.7 - 2.2 CBC W/Automated Diff 03/21/[address] [address] [phone] CBC W/Automated Diff (SEE NOTE) 38 WBC [...] Lymph 12.5 % Low 25.0 - 40.0 [place] 12.8 % High 3.0 - 8.0 Eos 2.2 % 0.0 - 7.0 Baso 1.1 % 0.0 - 2.5 %Ig 0.5 % High 0.0 - 0.0 %NRBC 0.0 % 0.0 - 0.0 #Neut 5.39 10^3/uL 2.00 - 6.90 #Lymph 0.95 10^3/uL 0.60 - 3.40 #[place] 0.97 10^3/uL High 0.00 - 0.90 #Eos 0.17 10^3/uL 0.00 - 0.70 #Baso 0.08 10^3/uL 0.00 - 0.20 #Ig 0.04 10^3/uL 0.00 - 0.10 #NRBC 0.00 10^3/uL 0.00 - 0.00 Manual Diff NOT INDICATED RBC Morph NOT INDICATED Comprehensive Metabolic Panel 03/21/2021 [facility] [address] [place] [address] [phone] Comprehensive Metabo (SEE NOTE) 39 Sodium 139 [...] >60 mL/min 40 Laboratory test finding 03/21/[address] [address] [phone] Magnesium Serum 1.3 mg/dL Low 1.7 - 2.2 Comprehensive Metabolic Panel 03/16/2021 [facility] [address] [place] [address] [phone] Comprehensive Metabo (SEE NOTE) 41 Sodium 139 [...] >60 mL/min 42 Laboratory test finding 03/16/[address] [address] [phone] Vitamin B12 Serum 573 pg/mL 232 - 1245 Magnesium Serum 03/16/[address] [address] [phone] Magnesium 0.9 mg/dL Critical low 1.7 - 2.2 Call/ Read Back SHIVANI MATA RN By: DESIRAE Date/Time 03.16.21904 Laboratory test finding 03/16/[address] [address] [phone] Iron 46 g/dL 42 - 135 T4 - Free 1.54 ng/dL 0.93 - 1.70 TSH Highly Sensitive 1.34 uIU/mL 0.47 - 5.01 CBC W/Automated Diff 03/16/[address] [address] [phone] CBC W/Automated Diff (SEE NOTE) 43 WBC [...] Lymph 9.7 % Low 25.0 - 40.0 [place] 13.2 % High 3.0 - 8.0 Eos 0.8 % 0.0 - 7.0 Baso 0.5 % 0.0 - 2.5 %Ig 0.4 % High 0.0 - 0.0 %NRBC 0.0 % 0.0 - 0.0 #Neut 6.94 10^3/uL High 2.00 - 6.90 #Lymph 0.89 10^3/uL 0.60 - 3.40 #[place] 1.21 10^3/uL High 0.00 - 0.90 #Eos 0.07 10^3/uL 0.00 - 0.70 #Baso 0.05 10^3/uL 0.00 - 0.20 #Ig 0.04 10^3/uL 0.00 - 0.10 #NRBC 0.00 10^3/uL 0.00 - 0.00 Manual Diff SEE BELOW Segs 81 % High 37 - 80 %Lymph 4 % Low 25 - 40 %[place] 14 % High 3 - 8 %Eos 1 % 0 - 7 RBC Morph SEE BELOW [place] 1+ Abnormal Normal: None Seen Hypo 1+ Abnormal Normal: None Seen 44 Stomatocytes 1+ Abnormal Normal: None Seen 45 CBC W/Automated Diff 03/08/[address] [address] [phone] CBC W/Automated Diff (SEE NOTE) 46 WBC [...] Lymph 9.2 % Low 25.0 - 40.0 [place] 16.8 % High 3.0 - 8.0 Eos 0.5 % 0.0 - 7.0 Baso 0.8 % 0.0 - 2.5 %Ig 1.2 % High 0.0 - 0.0 %NRBC 0.0 % 0.0 - 0.0 #Neut 6.13 10^3/uL 2.00 - 6.90 #Lymph 0.79 10^3/uL 0.60 - 3.40 #[place] 1.44 10^3/uL High 0.00 - 0.90 #Eos 0.04 10^3/uL 0.00 - 0.70 #Baso 0.07 10^3/uL 0.00 - 0.20 #Ig 0.10 10^3/uL 0.00 - 0.10 #NRBC 0.00 10^3/uL 0.00 - 0.00 Manual Diff SEE BELOW Segs 76 % 37 - 80 %Lymph 12 % Low 25 - 40 %[place] 10 % High 3 - 8 %Eos 2 % 0 - 7 RBC Morph SEE BELOW [place] 1+ Abnormal Normal: None Seen Poik 1+ Abnormal Normal: None Seen Hypo 1+ Abnormal Normal: None Seen 47 Ovalocytes 1+ Abnormal Normal: None Seen Stomatocytes 1+ Abnormal Normal: None Seen 48 Laboratory test finding 03/08/2021 [facility] [address] [place] [address] [phone] Hgba1c 4.8 % 4.4 - 6.1 49 Iron 41 g/dL Low 42 - 135 Comprehensive Metabolic Panel 03/08/2021 [facility] [address] [place] [address] [phone] Comprehensive Metabo (SEE NOTE) 50 Sodium 141 [...] >60 mL/min 51 Laboratory test finding 03/08/[address] [address] [phone] Vitamin B12 Serum 527 pg/mL 232 - 1245 Urinalysis 03/08/[address] [address] [phone] Urinalysis (SEE NOTE) 52 Source R Color yellow Normal: Yellow Clarity hazy Normal: Clear Spec [place] 1.015 1.001 - 1.030 pH 6 5 [...] Normal: None Seen Laboratory test finding 03/08/[address] [phone] Magnesium Serum 1.0 mg/dL Low 1.7 - 2.2 Culture Urine 03/08/[address] [address] [phone] Culture Urine (SEE NOTE) 53 1 COMPREHENSIVE [...] Troponin T. 33 First test?: N~Employed in [facility] [employer] [facility]?: N~Symptomatic as defined by CDC?: N~Hospitalized?: Y [...] mL/min Normal 52 URINALYSIS 53 _CULTURE URINE_ ^$[id number] ^^225397 $$773964 ^^909218 $$734110 $$019151 $$702387 $$147301 $$775140 $$795162 $$282517 $$268201 $$640035 $$597010 $$009377 $$249397 $$953017 $$640154 $$688148 $$652318 $$263179 $$344062 $$428399 $$190949 $$064553 $$529558 $$356946 ^^707899 $$958427 $$787687 $$064466 -- Continued on next page -- Patient: JUANITO Daniels Order: [id number] Page 2 Culture: CULTURE URINE Status: Final -- Continued on next page -- Patient: JUANITO Daniels Order: [id number] Page 2 Culture: CULTURE URINE Status: Prelim $$[id number] $$[id number] REPORTED DATE/TIME: 03/13/2021 07:06 Culture: CULTURE URINE Status: Final Urine Culture,Comprehensive: P1 No growth in 36 - 48 hours. Previous result entered on 03/10/2021 23:58 ET No growth after 18-24 hours. P1 [facility]: [id number] [address] [place] [id number] [facility] [id number] Dragline Operator Helper : Yonas Rascon MD NPI #: Bias Cutter Helper : 03/12/[email or web address] REF 03/13/[email or web address] REF Procedures Date Code Description Status 07/05/2021 24326 EKG Completed 07/05/2021 69047 Office/Outpatient Established Mo d MDM 30-39 Min Completed 06/07/2021 86369 Carotid Duplex Scan Bilat Comple domenico 05/31/2021 11421 Office/Outpatient Established Mo d MDM 30-39 Min Completed 05/31/2021 26378 EKG Completed 04/30/2021 36589 Office/Outpatient Established Mo d MDM 30-39 Min Completed 04/30/2021 66166 EKG Completed 04/20/2021 77552 Observation Discharge Completed 04/19/2021 36291 Office/Outpatient Established Mo d MDM 30-39 Min Completed 04/18/2021 17189 Observation Subsequent Level 2 C ompleted 04/17/2021 21232 Observation Initial 2 Completed 03/21/2021 48487 Office/Outpatient Established Mo d MDM 30-39 Min Completed 03/16/2021 10271 Office/Outpatient Established Mo d MDM 30-39 Min Completed 03/16/2021 76561 EKG Completed 03/15/2021 93448 Office/Outpatient Established Lo w MDM 20-29 Min Completed 03/15/2021 06029 EKG Completed 03/13/2021 73785 Office/Outpatient Established Lo w MDM 20-29 Min Completed 03/09/2021 89055 24 Hour Holter Monitoring Comple domenico 03/08/2021 38402 Office/Outpatient Established Mo d MDM 30-39 Min Completed 03/08/2021 20581 EKG Completed Encounters Type Date Location Provider Dx Diagnosis Office Visit 07/05/2021 2:45p [facility] Osmel Alvarez M.D[facility] I48.0 Paroxysmal atrial fibrillation I11.9 [facility] Other premature depolarizati on Office Visit 05/31/2021 2:15p [facility] Osmel Alvarez M.D.,[facility]. I48.0 Paroxysmal atrial fibrillation J43.9 Emphysema, unspecified I11.9 [facility]49 Other premature depolarizati on Office Visit 04/30/2021 2:45p [facility] Osmel Alvarez M.D.,[facility]. [facility]. I11.9 Hypertensive heart disease without heart failure I48.0 Paroxysmal atrial fibrillati on I26.99 Other pulmonary embolism wit hout acute cor pulmonale I49.49 Other premature depolarizati on Office Visit 03/21/2021 11:15a [facility] Osmel Alvarez M.D[facility] E83.42 Hypomagnesemia J44.9 Chronic obstructive pulmonar y disease, unspecified R00.0 Tachycardia, unspecified Office Visit 03/16/2021 9:45a [facility] Osmel Alvarez M[facility]. R00.0 Tachycardia, unspecified E87.6 Hypokalemia E83.42 Hypomagnesemia I49.49 Other premature depolarizati on Office Visit 03/15/2021 3:00p [facility] Osmel Alvarez M.D.,[facility]. [facility]. I11.9 Hypertensive heart disease without heart failure R00.0 Tachycardia, unspecified R00.2 Palpitations I49.49 Other premature depolarizati on Office Visit 03/13/2021 10:00a [facility] Osmel Alvarez M.D[facility]. [facility]. I50.20 Unspecified systolic (congestive) heart failure I11.9 [facility] R00.0 Tachycardia, unspecified Office Visit 03/08/2021 10:15a [facility] Osmel Alvarez M.D[facility]. [facility]. R00.2 Palpitations R42 Dizziness and giddiness I95.9 Hypotension, unspecified I49.49 Other premature depolarizati on Assessments Date Code Description Provider 07/05/2021 I48.0 Paroxysmal atrial fibrillation Sarah Alvarez M.D[facility]. 07/05/2021 I11.9 Hypertensive heart disease witho dc heart failure Osmel Alvarez M[facility] 07/05/2021 I49.49 Other premature depolarization Sarah Alvarez M.D[facility] 06/07/2021 G45.9 Transient cerebral ischemic kierra ck, connie Alvarez M.D.,[facility]. 06/07/2021 R42 Dizziness and giddiness Osmel yun M.D.,[facility]. 05/31/2021 I48.0 Paroxysmal atrial fibrillation Sarah Alvarez M.D[facility]. 05/31/2021 J43.9 Emphysema, marcelaified Osmel white M.D.,[facility]. 05/31/2021 I11.9 Hypertensive heart disease witho dc heart failure Osmel Alvarez M[facility] 05/31/2021 I49.49 Other premature depolarization Sarah Alvarez M.D[facility] 04/30/2021 I11.9 Hypertensive heart disease witho dc heart failure Osmel Alvarez M.D[facility]. 04/30/2021 I48.0 [...] M.D.,P.C. 03/15/2021 I11.9 Hypertensive heart disease witho dc heart failure Osmel Alvarez M.D[facility]. 03/15/2021 R00.0 Tachycardia, unspecified Osmel anderson M.D[facility]. 03/15/2021 R00.2 Palpitations Evelyn Blake,P.C. 03/15/2021 I49.49 Other premature depolarization Sarah Alvarez M.D[facility] 03/13/2021 I50.20 Unspecified systolic (congestive ) heart failure Osmel Alvarez M.D[facility]. 03/13/2021 I11.9 Hypertensive heart disease witho dc heart failure Osmel Alvarez M.D[facility]. 03/13/2021 R00.0 Tachycardia, unspecified Osmel anderson M.D.,[facility]. 03/09/2021 R00.2 Palpitations Evelyn Blake,P.C. 03/08/2021 R00.2 Palpitations Evelyn Blake,P.C. 03/08/2021 R42 Dizziness and giddiness Osmel yun M.D.,[facility]. 03/08/2021 I95.9 Hypotension, unspecified Osmel anderson M.D[facility]. 03/08/2021 I49.49 Other premature depolarization M bonnie Alvarez M.D.,P.C. Plan of Treatment Future Appointment(s):* 08/08/2021 11:00 am - Osmel Alvarez M[facility] at [facility] Referrals Refer to Reason for Referral Status Appt Date Evelyn Jackman MD Please eval. and treat this patient for Afib, She needs an ablation. Thank you. Scheduled 05/21/[address] [facility] [address]
--- OUTSIDE RECORDS SUMMARY | 2021-08-25 12:36 | CCD | Continuity of Care Document ---
Author Author Chantale BLAKE P. C. Organization Unknown Address [address] [place] [address] Phone [phone] Care Team Providers Care Natural Resource Economist Name Role Phone Evelyn Jackman MD AUT Unavailable OSMEL ALVAREZ M.D. P.CKellen RUIZ [phone] Social History Type Date Description Comments Sex [...] Result H/L Range Note Laboratory test finding 08/03/2021 [facility] [address] [place] [address] [phone] Magnesium Serum 1.6 mg/dL Low 1.7 - 2.2 1 Comprehensive Metabolic Panel 08/03/2021 [facility] [address] [place] [address] [phone] Comprehensive Metabo (SEE NOTE) 2 Sodium 137 mEq/L 134 - 153 Potassium [...] 49 mL/min Afr Amer GFR 60 mL/min 3 CBC W/Automated Diff 08/03/[address] [address] [phone] CBC W/Automated Diff (SEE NOTE) 4 WBC 5.5 10^3/uL 4.2 - 11.0 RBC [...] Lymph 5.4 % Low 25.0 - 40.0 [place] 12.1 % High 3.0 - 8.0 Eos 4.5 % 0.0 - 7.0 Baso 0.4 % 0.0 - 2.5 %Ig 1.1 % High 0.0 - 0.0 %NRBC 0.0 % 0.0 - 0.0 #Neut 4.23 10^3/uL 2.00 - 6.90 #Lymph 0.30 10^3/uL Low 0.60 - 3.40 #[place] 0.67 10^3/uL 0.00 - 0.90 #Eos 0.25 10^3/uL 0.00 - 0.70 #Baso 0.02 10^3/uL 0.00 - 0.20 #Ig 0.06 10^3/uL 0.00 - 0.10 #NRBC 0.00 10^3/uL 0.00 - 0.00 Manual Diff SEE BELOW Segs 81 % High 37 - 80 %Lymph 6 % Low 25 - 40 %[place] 9 % High 3 - 8 %Eos 4 % 0 - 7 RBC Morph SEE BELOW [place] 1+ Abnormal Normal: None Seen Macro 1+ Abnormal Normal: None Seen Poik 1+ Abnormal Normal: None Seen 5 Ovalocytes 1+ Abnormal Normal: None Seen Hyper Neut 2+ Abnormal Normal: None Seen PLT Est DECREASED Abnormal Normal: Normal 6 Laboratory test finding 08/02/[address] [address] [phone] D-Dimer 3.59 ug/mL High 0.27 - 0.50 Lactic Acid (Lactate) 0.7 mmol/L 0.2 - 2.2 Magnesium Serum 1.7 mg/dL 1.7 - 2.2 CBC W/Automated Diff 08/02/[address] [address] [phone] CBC W/Automated Diff (SEE NOTE) 7 WBC 7.7 10^3/uL 4.2 - 11.0 RBC [...] Lymph 3.9 % Low 25.0 - 40.0 [place] 6.0 % 3.0 - 8.0 Eos 3.0 % 0.0 - 7.0 Baso 0.4 % 0.0 - 2.5 %Ig 0.5 % High 0.0 - 0.0 %NRBC 0.0 % 0.0 - 0.0 #Neut 6.62 10^3/uL 2.00 - 6.90 #Lymph 0.30 10^3/uL Low 0.60 - 3.40 #[place] 0.46 10^3/uL 0.00 - 0.90 #Eos 0.23 10^3/uL 0.00 - 0.70 #Baso 0.03 10^3/uL 0.00 - 0.20 #Ig 0.04 10^3/uL 0.00 - 0.10 #NRBC 0.00 10^3/uL 0.00 - 0.00 Manual Diff SEE BELOW Segs 84 % High 37 - 80 %Lymph 6 % Low 25 - 40 %[place] 3 % 3 - 8 %Eos 7 % 0 - 7 RBC Morph SEE BELOW [place] 2+ Abnormal Normal: None Seen Hypo 1+ Abnormal Normal: None Seen 8 PLT Est DECREASED Abnormal Normal: Normal 9 Comprehensive Metabolic Panel 08/02/2021 [facility] [address] [place] [address] [phone] Comprehensive Metabo (SEE NOTE) 10 Sodium 136 mEq/L 134 - 153 Potassium [...] 49 mL/min Afr Amer GFR 60 mL/min 11 Laboratory test finding 08/02/2021 [facility] [address] [place] [address] [phone] Pro-BNP 2923 pg/mL High 0 - 125 Iron 25 g/dL Low 42 - 135 Vitamin B12 Serum 346 pg/mL 232 - 1245 CBC W/Automated Diff 04/20/[address] [address] [phone] CBC W/Automated Diff (SEE NOTE) 12 WBC 5.9 10^3/uL 4.2 - 11.0 RBC [...] Lymph 4.9 % Low 25.0 - 40.0 [place] 10.8 % High 3.0 - 8.0 Eos 2.5 % 0.0 - 7.0 Baso 0.2 % 0.0 - 2.5 %Ig 1.0 % High 0.0 - 0.0 %NRBC 0.0 % 0.0 - 0.0 #Neut 4.77 10^3/uL 2.00 - 6.90 #Lymph 0.29 10^3/uL Low 0.60 - 3.40 #[place] 0.64 10^3/uL 0.00 - 0.90 #Eos 0.15 10^3/uL 0.00 - 0.70 #Baso 0.01 10^3/uL 0.00 - 0.20 #Ig 0.06 10^3/uL 0.00 - 0.10 #NRBC 0.00 10^3/uL 0.00 - 0.00 Manual Diff SEE BELOW Segs 87 % High 37 - 80 %Lymph 2 % Low 25 - 40 %[place] 9 % High 3 - 8 %Eos 2 % 0 - 7 RBC Morph SEE BELOW [place] 1+ Abnormal Normal: None Seen Macro 1+ Abnormal Normal: None Seen Poik 1+ Abnormal Normal: None Seen 13 PLT Est NORMAL Normal: Normal 14 Comprehensive Metabolic Panel 04/20/2021 [facility] [address] [place], [place] [address] [phone] Comprehensive Metabo (SEE NOTE) 15 Sodium 138 mEq/L 134 - 153 Potassium [...] >60 mL/min Afr Amer GFR >60 mL/min 16 Laboratory test finding [facility] [address] [place] [address] [phone] Magnesium Serum 1.7 mg/dL 1.7 - 2.2 17 Comprehensive Metabolic Panel 04/19/2021 [facility] [address] [place] [address] [phone] Comprehensive Metabo (SEE NOTE) 18 Sodium 136 mEq/L 134 - 153 Potassium [...] >60 mL/min Afr Amer GFR >60 mL/min 19 Laboratory test finding 04/19/[address] [address] [phone] Magnesium Serum 1.5 mg/dL Low 1.7 - 2.2 Pro-BNP 692 pg/mL High 0 - 125 Iron 45 g/dL 42 - 135 CBC W/Automated Diff 04/19/[address] [address] [phone] CBC W/Automated Diff (SEE NOTE) 20 WBC 7.3 10^3/uL 4.2 - 11.0 RBC [...] Lymph 6.5 % Low 25.0 - 40.0 [place] 4.7 % 3.0 - 8.0 Eos 2.2 % 0.0 - 7.0 Baso 0.3 % 0.0 - 2.5 %Ig 0.4 % High 0.0 - 0.0 %NRBC 0.0 % 0.0 - 0.0 #Neut 6.25 10^3/uL 2.00 - 6.90 #Lymph 0.47 10^3/uL Low 0.60 - 3.40 #[place] 0.34 10^3/uL 0.00 - 0.90 #Eos 0.16 10^3/uL 0.00 - 0.70 #Baso 0.02 10^3/uL 0.00 - 0.20 #Ig 0.03 10^3/uL 0.00 - 0.10 #NRBC 0.00 10^3/uL 0.00 - 0.00 Manual Diff NOT INDICATED RBC Morph NOT INDICATED Laboratory test finding 04/18/[address] [address] [phone] Troponin T 0.02 NG/ML 0.00 - 0.10 21 CBC W/Automated Diff 04/18/[address] [address] [phone] CBC W/Automated Diff (SEE NOTE) 22 WBC 8.9 10^3/uL 4.2 - 11.0 RBC [...] Lymph 5.7 % Low 25.0 - 40.0 [place] 2.7 % Low 3.0 - 8.0 Eos 2.0 % 0.0 - 7.0 Baso 0.2 % 0.0 - 2.5 %Ig 0.6 % High 0.0 - 0.0 %NRBC 0.0 % 0.0 - 0.0 #Neut 7.88 10^3/uL High 2.00 - 6.90 #Lymph 0.51 10^3/uL Low 0.60 - 3.40 #[place] 0.24 10^3/uL 0.00 - 0.90 #Eos 0.18 10^3/uL 0.00 - 0.70 #Baso 0.02 10^3/uL 0.00 - 0.20 #Ig 0.05 10^3/uL 0.00 - 0.10 #NRBC 0.00 10^3/uL 0.00 - 0.00 Manual Diff NOT INDICATED RBC Morph NOT INDICATED Laboratory test finding 04/18/2021 [facility] [address] [place] [address] [phone] Troponin T 0.02 NG/ML 0.00 - 0.10 23 Magnesium Serum 1.7 mg/dL 1.7 - 2.2 T4 - Free 1.23 ng/dL 0.93 - 1.70 Comprehensive Metabolic Panel 04/18/2021 [facility] [address] [place] [address] [phone] Comprehensive Metabo (SEE NOTE) 24 Sodium 141 mEq/L 134 - 153 Potassium [...] >60 mL/min Afr Amer GFR >60 mL/min 25 Laboratory test finding 04/18/2021 [facility] [address] [place] [address] [phone] Pro-BNP 766 pg/mL High 0 - 125 TSH Highly Sensitive 1.68 uIU/mL 0.47 - 5.01 Iron 77 g/dL 42 - 135 Vitamin B12 Serum 390 pg/mL 232 - 1245 Laboratory test finding 04/18/[address] [address] [phone] Troponin T 0.02 NG/ML 0.00 - 0.10 26 Covid-19 04/17/[address] [address] [phone] Covid-19 NOT DETECTED 27 Covid-19 Reenter NOT DETECTED 28 Comprehensive Metabolic Panel 04/11/2021 [facility] [address] [place] [phone] Comprehensive Metabo (SEE NOTE) 29 Sodium 139 mEq/L 134 - 153 Potassium [...] >60 mL/min Afr Amer GFR >60 mL/min 30 Laboratory test finding 04/11/[address] [address] [phone] Magnesium Serum 1.5 mg/dL Low 1.7 - 2.2 CBC W/Automated Diff 04/11/[address] [address] [phone] CBC W/Automated Diff (SEE NOTE) 31 WBC 7.2 10^3/uL 4.2 - 11.0 RBC [...] Lymph 11.4 % Low 25.0 - 40.0 [place] 8.9 % High 3.0 - 8.0 Eos 0.0 % 0.0 - 7.0 Baso 0.1 % 0.0 - 2.5 %Ig 1.0 % High 0.0 - 0.0 %NRBC 0.0 % 0.0 - 0.0 #Neut 5.66 10^3/uL 2.00 - 6.90 #Lymph 0.82 10^3/uL 0.60 - 3.40 #[place] 0.64 10^3/uL 0.00 - 0.90 #Eos 0.00 10^3/uL 0.00 - 0.70 #Baso 0.01 10^3/uL 0.00 - 0.20 #Ig 0.07 10^3/uL 0.00 - 0.10 #NRBC 0.00 10^3/uL 0.00 - 0.00 Manual Diff NOT INDICATED RBC Morph NOT INDICATED CBC W/Automated Diff 03/21/[address] [address] [phone] CBC W/Automated Diff (SEE NOTE) 32 WBC 7.6 10^3/uL 4.2 - 11.0 RBC [...] Lymph 12.5 % Low 25.0 - 40.0 [place] 12.8 % High 3.0 - 8.0 Eos 2.2 % 0.0 - 7.0 Baso 1.1 % 0.0 - 2.5 %Ig 0.5 % High 0.0 - 0.0 %NRBC 0.0 % 0.0 - 0.0 #Neut 5.39 10^3/uL 2.00 - 6.90 #Lymph 0.95 10^3/uL 0.60 - 3.40 #[place] 0.97 10^3/uL High 0.00 - 0.90 #Eos 0.17 10^3/uL 0.00 - 0.70 #Baso 0.08 10^3/uL 0.00 - 0.20 #Ig 0.04 10^3/uL 0.00 - 0.10 #NRBC 0.00 10^3/uL 0.00 - 0.00 Manual Diff NOT INDICATED RBC Morph NOT INDICATED Comprehensive Metabolic Panel 03/21/2021 [facility] [address] [place], [place] [address] [phone] Comprehensive Metabo (SEE NOTE) 33 Sodium 139 mEq/L 134 - 153 Potassium [...] >60 mL/min Afr Amer GFR >60 mL/min 34 Laboratory test finding 03/21/2021 [facility] [address] [place] [address] [phone] Magnesium Serum 1.3 mg/dL Low 1.7 - 2.2 Magnesium Serum 03/16/[address] [address] [phone] Magnesium 0.9 mg/dL Critical low 1.7 - 2.2 Call/ Read Back SHIVANI MATA RN By: DESIRAE Date/Time 03.16.21904 Laboratory test finding 03/16/[address] [address] [phone] Vitamin B12 Serum 573 pg/mL 232 - 1245 Laboratory test finding 03/16/[address] [address] [phone] Iron 46 g/dL 42 - 135 T4 - Free 1.54 ng/dL 0.93 - 1.70 TSH Highly Sensitive 1.34 uIU/mL 0.47 - 5.01 Comprehensive Metabolic Panel 03/16/2021 [facility] [address] [place] [address] [phone] Comprehensive Metabo (SEE NOTE) 35 Sodium 139 mEq/L 134 - 153 Potassium [...] >60 mL/min Afr Amer GFR >60 mL/min 36 CBC W/Automated Diff 03/16/[address] [phone] CBC W/Automated Diff (SEE NOTE) 37 WBC 9.2 10^3/uL 4.2 - 11.0 RBC [...] Lymph 9.7 % Low 25.0 - 40.0 [place] 13.2 % High 3.0 - 8.0 Eos 0.8 % 0.0 - 7.0 Baso 0.5 % 0.0 - 2.5 %Ig 0.4 % High 0.0 - 0.0 %NRBC 0.0 % 0.0 - 0.0 #Neut 6.94 10^3/uL High 2.00 - 6.90 #Lymph 0.89 10^3/uL 0.60 - 3.40 #[place] 1.21 10^3/uL High 0.00 - 0.90 #Eos 0.07 10^3/uL 0.00 - 0.70 #Baso 0.05 10^3/uL 0.00 - 0.20 #Ig 0.04 10^3/uL 0.00 - 0.10 #NRBC 0.00 10^3/uL 0.00 - 0.00 Manual Diff SEE BELOW Segs 81 % High 37 - 80 %Lymph 4 % Low 25 - 40 %[place] 14 % High 3 - 8 %Eos 1 % 0 - 7 RBC Morph SEE BELOW [place] 1+ Abnormal Normal: None Seen Hypo 1+ Abnormal Normal: None Seen 38 Stomatocytes 1+ Abnormal Normal: None Seen 39 CBC W/Automated Diff 03/08/[address] [address] [phone] CBC W/Automated Diff (SEE NOTE) 40 WBC 8.6 10^3/uL 4.2 - 11.0 RBC [...] Lymph 9.2 % Low 25.0 - 40.0 [place] 16.8 % High 3.0 - 8.0 Eos 0.5 % 0.0 - 7.0 Baso 0.8 % 0.0 - 2.5 %Ig 1.2 % High 0.0 - 0.0 %NRBC 0.0 % 0.0 - 0.0 #Neut 6.13 10^3/uL 2.00 - 6.90 #Lymph 0.79 10^3/uL 0.60 - 3.40 #[place] 1.44 10^3/uL High 0.00 - 0.90 #Eos 0.04 10^3/uL 0.00 - 0.70 #Baso 0.07 10^3/uL 0.00 - 0.20 #Ig 0.10 10^3/uL 0.00 - 0.10 #NRBC 0.00 10^3/uL 0.00 - 0.00 Manual Diff SEE BELOW Segs 76 % 37 - 80 %Lymph 12 % Low 25 - 40 %[place] 10 % High 3 - 8 %Eos 2 % 0 - 7 RBC Morph SEE BELOW [place] 1+ Abnormal Normal: None Seen Poik 1+ Abnormal Normal: None Seen Hypo 1+ Abnormal Normal: None Seen 41 Ovalocytes 1+ Abnormal Normal: None Seen Stomatocytes 1+ Abnormal Normal: None Seen 42 Laboratory test finding 03/08/2021 [address] [place], [place] [address] [phone] Hgba1c 4.8 % 4.4 - 6.1 43 Iron 41 g/dL Low 42 - 135 Comprehensive Metabolic Panel 03/08/2021 [facility] [address] [place] [address] [phone] Comprehensive Metabo (SEE NOTE) 44 Sodium 141 mEq/L 134 - 153 Potassium [...] >60 mL/min Afr Amer GFR >60 mL/min 45 Laboratory test finding 03/08/[address] [address] [phone] Vitamin B12 Serum 527 pg/mL 232 - 1245 Urinalysis 03/08/[address] [address] [phone] Urinalysis (SEE NOTE) 46 Source R Color yellow Normal: Yellow Clarity hazy Normal: Clear Spec [place] 1.015 1.001 - 1.030 pH 6 5 [...] Normal: None Seen Laboratory test finding 03/08/[address] [address] [phone] Magnesium Serum 1.0 mg/dL Low 1.7 - 2.2 Culture Urine 03/08/[address] [address] [phone] Culture Urine (SEE NOTE) 47 1 Is patient fasting? N 2 COMPREHENSIVE METABOLIC PANE L 3 Male [...] 80 and above >32 mL/min Normal 4 COMPLETE BLOOD COUNT 5 { SICKLE CELL (NORMAL: NONE SEEN ) 6 COMMENT: 7 COMPLETE BLOOD COUNT 8 { SICKLE CELL (NORMAL: NONE SEEN ) 9 COMMENT: 10 COMPREHENSIVE METABOLIC PANE L 11 Male [...] mL/min Normal 12 COMPLETE BLOOD COUNT 13 { SICKLE CELL (NORMAL: NONE SEEN ) 14 COMMENT: 15 COMPREHENSIVE METABOLIC PANE L 16 Male [...] 80 and above >32 mL/min Normal 17 can run on todays blood 18 COMPREHENSIVE METABOLIC PANE L 19 Male GFR Interprentation 20-49 yrs >60 mL/min Normal 50-59 yrs >56 mL/min Normal 60-69 yrs >49 mL/min Normal 70-79yrs >42 mL/min Normal 80 and above >35 mL/min Normal Female GFR Interpretation 20-39 yrs >60 mL/min Normal 40-49 yrs >58 mL/min Normal 50-59 yrs >51 mL/min Normal 60-69 yrs >45 mL/min Normal 70-79 yrs >39 mL/min Normal 80 and above >32 mL/min Normal 20 COMPLETE BLOOD COUNT 21 TROPONIN T 0.1 ng/ml Recommended as the clinical th reshold value for Troponin T. 22 COMPLETE BLOOD COUNT 23 TROPONIN T 0.1 ng/ml Recommended as the clinical th reshold value for Troponin T. 24 COMPREHENSIVE METABOLIC PANE L 25 Male GFR Interprentation 20-49 yrs >60 mL/min Normal 50-59 yrs >56 mL/min Normal 60-69 yrs >49 mL/min Normal 70-79yrs >42 mL/min Normal 80 and above >35 mL/min Normal Female GFR Interpretation 20-39 yrs >60 mL/min Normal 40-49 yrs >58 mL/min Normal 50-59 yrs >51 mL/min Normal 60-69 yrs >45 mL/min Normal 70-79 yrs >39 mL/min Normal 80 and above >32 mL/min Normal 26 TROPONIN T 0.1 ng/ml Recommended as the clinical th reshold value for Troponin T. 27 First test?: N~Employed in [employer] [facility]?: N~Symptomatic as defined by CDC?: N~Hospitalized?: Y 28 { PROCEDURAL CONTROL VALID KIT LOT # [...] THE SOLE BASIS FOR PATIENT MANAGEMENT DECISIONS. 29 COMPREHENSIVE METABOLIC PANE L 30 Male GFR Interprentation 20-49 yrs >60 mL/min Normal 50-59 yrs >56 mL/min Normal 60-69 yrs >49 mL/min Normal 70-79yrs >42 mL/min Normal 80 and above >35 mL/min Normal Female GFR Interpretation 20-39 yrs >60 mL/min Normal 40-49 yrs >58 mL/min Normal 50-59 yrs >51 mL/min Normal 60-69 yrs >45 mL/min Normal 70-79 yrs >39 mL/min Normal 80 and above >32 mL/min Normal 31 COMPLETE BLOOD COUNT 32 COMPLETE BLOOD COUNT 33 COMPREHENSIVE METABOLIC PANE L 34 Male GFR Interprentation 20-49 yrs >60 mL/min Normal 50-59 yrs >56 mL/min Normal 60-69 yrs >49 mL/min Normal 70-79yrs >42 mL/min Normal 80 and above >35 mL/min Normal Female GFR Interpretation 20-39 yrs >60 mL/min Normal 40-49 yrs >58 mL/min Normal 50-59 yrs >51 mL/min Normal 60-69 yrs >45 mL/min Normal 70-79 yrs >39 mL/min Normal 80 and above >32 mL/min Normal 35 COMPREHENSIVE METABOLIC PANE L 36 Male GFR Interprentation 20-49 yrs >60 mL/min Normal 50-59 yrs >56 mL/min Normal 60-69 yrs >49 mL/min Normal 70-79yrs >42 mL/min Normal 80 and above >35 mL/min Normal Female GFR Interpretation 20-39 yrs >60 mL/min Normal 40-49 yrs >58 mL/min Normal 50-59 yrs >51 mL/min Normal 60-69 yrs >45 mL/min Normal 70-79 yrs >39 mL/min Normal 80 and above >32 mL/min Normal 37 COMPLETE BLOOD COUNT 38 { SICKLE CELL (NORMAL: NONE SEEN ) 39 COMMENT: 40 COMPLETE BLOOD COUNT 41 { SICKLE CELL (NORMAL: NONE SEEN ) 42 COMMENT: 43 {A1] {HB] 44 COMPREHENSIVE METABOLIC PANE L 45 Male GFR Interprentation 20-49 yrs >60 mL/min Normal 50-59 yrs >56 mL/min Normal 60-69 yrs >49 mL/min Normal 70-79yrs >42 mL/min Normal 80 and above >35 mL/min Normal Female GFR Interpretation 20-39 yrs >60 mL/min Normal 40-49 yrs >58 mL/min Normal 50-59 yrs >51 mL/min Normal 60-69 yrs >45 mL/min Normal 70-79 yrs >39 mL/min Normal 80 and above >32 mL/min Normal 46 URINALYSIS 47 _CULTURE URINE_ ^$[id number] ^^[id number] $$506241 ^^[id number] $$045189 $$871611 $$067544 $$123752 $$284707 $$154527 $$501125 $$121006 $$299860 $$774767 $$344722 $$264776 $$489562 $$180658 $$955689 $$001321 $$271529 $$933350 $$965685 $$269826 $$589542 $$187729 $$749885 ^^706184 $$967097 $$053019 $$117005 -- Continued on next page -- Patient: JUANITO ROMAN E Order: [id number] Page 2 Culture: CULTURE URINE Status: Final -- Continued on next page -- Patient: JUANITO ROMAN E Order: [id number] Page 2 Culture: CULTURE URINE Status: Prelim $$[id number] $$[id number] REPORTED DATE/TIME: 03/13/2021 07:06 Culture: CULTURE URINE Status: Final Urine Culture,Comprehensive: P1 No growth in 36 - 48 hours. Previous result entered on 03/10/2021 23:58 ET No growth after 18-24 hours. P1 [facility] #: [id number] [address] [facility] [id number] [facility] [id number] Vascular Physician : Yonas Rascon MD NPI #: Senior Bookkeeper : 03/[email or web address] REF 03/13/[email or web address] REF Procedures Date Code Description Status 07/05/2021 52777 EKG Completed 07/05/2021 83636 Office/Outpatient Established Mo d MDM 30-39 Min Completed 06/07/2021 51426 Carotid Duplex Scan Bilat Comple domenico 05/31/2021 72607 Office/Outpatient Established Mo d MDM 30-39 Min Completed 05/31/2021 22803 EKG Completed 04/30/2021 10427 Office/Outpatient Established Mo d MDM 30-39 Min Completed 04/30/2021 11638 EKG Completed 04/20/2021 66721 Observation Discharge Completed 04/19/2021 47530 Office/Outpatient Established Mo d MDM 30-39 Min Completed 04/18/2021 41435 Observation Subsequent Level 2 C ompleted 04/17/2021 18235 Observation Initial 2 Completed 03/21/2021 62168 Office/Outpatient Established Mo d MDM 30-39 Min Completed 03/16/2021 50658 Office/Outpatient Established Mo d MDM 30-39 Min Completed 03/16/2021 22034 EKG Completed 03/15/2021 81386 Office/Outpatient Established Lo w MDM 20-29 Min Completed 03/15/2021 13458 EKG Completed 03/13/2021 73890 Office/Outpatient Established Lo w MDM 20-29 Min Completed 03/09/2021 73706 24 Hour Holter Monitoring Comple domenico 03/08/2021 97134 Office/Outpatient Established Mo d MDM 30-39 Min Completed 03/08/2021 76362 EKG Completed Encounters Type Date Location Provider Dx Diagnosis Office Visit 07/05/2021 2[facility]p [facility] I48.0 Paroxysmal atrial fibrillation I11.9 [facility] Other premature depolarizati on Office Visit 05/31/2021 2:15p [facility] Osmel Alvarez M[facility] I48.0 Paroxysmal atrial fibrillation J43.9 Emphysema, unspecified I11.9 Hypertensive heart disease w ithout heart failure I49.49 Other premature depolarizati on Office Visit 04/30/2021 2:45p [facility] Osmel [facility] I11.9 Hypertensive heart disease without heart failure I48.0 Paroxysmal atrial fibrillati on I26.99 Other pulmonary embolism wit hout acute cor pulmonale I49.49 Other premature depolarizati on Office Visit 03/21/2021 11:15a [facility] O[facility]el [facility] E83.42 Hypomagnesemia J44.9 Chronic obstructive pulmonar y disease, unspecified R00.0 Tachycardia, unspecified Office Visit 03/16/2021 9:45a [facility] Osmel [facility] R00.0 Tachycardia, unspecified E87.6 Hypokalemia E83.42 Hypomagnesemia I49.49 Other premature depolarizati on Office Visit 03/15/2021 3:00p [facility] Jurgen Alvarez M[facility] I11.9 Hypertensive heart disease without heart failure R00.0 Tachycardia, unspecified R00.2 Palpitations I49.49 Other premature depolarizati on Office Visit 03/13/2021 10:00a [facility] Osmel Alvarez M[facility] I50.20 Unspecified systolic (congestive) heart failure I11.9 Hypertensive heart disease w [facility] heart failure R00.0 Tachycardia, unspecified Office Visit 03/08/2021 10:15a [facility] Osmel Alvarez [facility] R00.2 Palpitations R42 Dizziness and giddiness I95.9 Hypotension, unspecified I49.49 Other premature depolarizati on Assessments Date Code Description Provider 07/05/2021 I48.0 Paroxysmal atrial fibrillation Sarah [facility]varez [facility] 07/05/2021 I11.9 Hypertensive heart disease witho pa heart failure O[facility]el [facility] 07/05/2021 I49.49 Other premature depolarization Sarah [facility]varez [facility] 06/07/2021 G45.9 Transient cerebral ischemic kierra ck, unspecified Osmel [facility]varez [facility] 06/07/2021 R42 Dizziness and giddiness Osmel yun M[facility] 05/31/2021 I48.0 Paroxysmal atrial fibrillation Sarah [facility]varez [facility] 05/31/2021 J43.9 Emphysema, unspecified Osmel white M[facility] 05/31/2021 I11.9 Hypertensive heart disease witho pa heart failure O[facility]el [facility] 05/31/2021 I49.49 Other premature depolarization Sarah Alvarez [facility] 04/30/2021 I11.9 Hypertensive heart disease witho pa heart failure Osmel [facility]varez [facility] 04/30/2021 I48.0 [...] 04/18/2021 K21.9 Gastro-esophageal reflux disease without esophagitis Oseml [facility]varez [facility] 04/18/2021 I10 Essential (primary) hypertension [...] 11:00 am - [facility]el [facility] at [facility] Referrals Refer to Reason for Referral Status Appt Date Evelyn Jackman MD Please eval. and treat this patient for Afib, She needs an ablation. Thank you. Scheduled 05/21/2021 [address] [facility] [facility] [address]
--- OUTSIDE RECORDS SUMMARY | 2021-08-25 12:37 | CCD | Continuity of Care Document ---
Author Author Chantale FRANCIS MD Organization Unknown Address [address] [facility], [address] [place] [address] Phone [phone] Care Team Providers Care Statistical Methods Teacher Name Role Phone Franca Nicole M.D. AUTM [phone] Marlin Carter M.D. AUTM [phone] Problems Active Problems Provider Date Essential hypertension Won Cope MD Onset: 09/01/2017 Sudden hearing loss Won Cope MD Onset: 09/01/2017 Acute lymphadenitis Won Cope MD Onset: 09/01/2017 Arthralgia of temporomandibular joint Won Cope MD On set: 09/15/2017 Hemoptysis JOHN Acuna Onset: 12/15/2017 Difficulty breathing JOHN Acuna Onset: 12/15/2017 Chronic obstructive lung disease JOHN Acuna Onset: 12/15/2017 Ex-smoker JOHN Acuna Onset: 12/15/2017 Other nonspecific abnormal finding of lung field Vic Garcia D.O. Onset: 01/07/2018 Malignant neoplasm of upper lobe, bronchus or lung Vic pruitt DKellenOKellen Onset: 01/14/2018 Cough Vic Garcia D.O. Onset: 02/19/2018 Obstructive sleep apnea syndrome Parish HuntO. Onset: 03/03/2018 Hypoxemia Geneva Hunt.O. Onset: 04/10/2018 Pulmonary embolism Parish HuntO. Onset: 2018 H/O: pulmonary embolus Geneva Hunt.O. Onset: 09/07/2019 Bleeding from nose Geneva Hunt.O. Onset: 03/13/2020 Arthralgia of the pelvic region and thigh Vic Garcia D.O. Onset: 03/01/2021 Hearing loss Cesar Francis MD Onset: 06/27/2021 Disorder of pericardium Vic Garcia D.O. Onset: History of malignant neoplasm of bronchus Vic Garcia D.O. Onset: 06/12/2021 Bronchiectasis Vic Garcia D.O. Onset: 06/26/2021 Impacted cerumen Cesar Francis MD Onset: 06/27/2021 Social History Type Date Description Comments Sex Unknown ETOH Use Denies alcohol use Tobacco Use Start: Unknown End: Patient is a former smoker hx:1/2ppd since age 16 Recreational Drug Use Denies Drug Use Smoking Status Reviewed: 06/26/21 Patient is a former smoker hx :1/2ppd since age 16 Allergies, Adverse Reactions, Alerts Active Allergies Criticality Reaction | Severity Comments [...] 1 Tablet By Mouth Every Day 90tabs Vic Garcia D.O. 05/14/2018 Oxygen 2l with exertion- LCW Parish Hunt 05/04/2018 Spiriva Respimat 2.5mcg/Act Aeroso l 2 puffs every day 12gm Vic Garcia D.O. 04/20/2018 Claritin 10mg Tablets 1 tab by mouth as needed 30tabs Unknown Metoprolol Tartrate 25mg Tablets 1/2 tab by mouth every day Unknown Multaq 400mg Tablets 1 tab by mouth twice a day Unknown Diltiazem HCL ER 180mg Caps ER 24H R 1 tab by mouth every night Unknown Potassium Chloride Jennifer ER 1 tab by mouth 5 days a week Unknown Furosemide 20mg Tablets 1 tab by mouth 5 days a week 3tabs Unknown Magnesium 500mg Tablets 1 tab by mouth every day 30tabs Unknown Folic Acid 800mcg Tablets 1 tab by mouth every day Unknown Proair HFA 108(90Base) mcg/Act Aer osol 2 puffs four times a day as needed 25.5gm Parish HuntO . Tylenol 325mg Tablets as need ed Unknown [...] 1 by mouth every day 14tabs Parish HuntO. 04/30/2021 - Levofloxacin 500mg Tablets 1 by mouth every day 10tabs Parish HuntO. 03/26/2021 - Levofloxacin 500mg Tablets 1 by mouth every day 14tabs [email or web address].Parish FongO. 01/30/2021 - Itraconazole 100mg Capsules one tab po daily 14caps Juan44.9 Parish HuntO. 01/30/2021 - Fluconazole 150mg Tablets one tab, repeat once in 2 days if thrush persistent 14tabs Parish HuntO. 01/30/2021 - 01/29/2021 Prednisone 10mg Tablets 4 tabs po qd x5d, 3 tabs po qd x5d, 2 tabs po qd x5d, 1 tab x 5 days, then 1/2 tab po x 5 days 53tabs R05 Vic Garcia D.O. 01/22/2021 - 021 Immunizations CPT Code Status Date Vaccine Lot # [id number] Given 09/07/2019 Prevnar 13 33429 Given 08/18/2019 Flublock, Quadrivalent Vital Signs Date Vital Result Comment 06/27/2021 9:02am BP Systolic 100 mmHg BP Diastolic 68 mmHg Heart Rate 81 /min O2 % BldC Oximetry 982 % Height 60 inches 5'0" Weight 173.00 lb BMI (Body Mass Index) 33.8 kg/m2 [place] Body Weight 100 lb Weight 78.473 kg BSA (Body Surface Area) 1.76 m2 06/26/2021 10:53am BP Systolic 102 mmHg BP Diastolic 62 mmHg Heart Rate 82 /min O2 % BldC Oximetry 942 % Height 60 inches 5'0" Weight 172.00 lb BMI (Body Mass Index) 33.6 kg/m2 [place] Body Weight 100 lb Weight 78.019 kg BSA (Body Surface Area) 1.75 m2 Results Test Acquired Date Facility Test Result H/L Range Note Bal Culture And Gram Stain 06/20/2021 [facility] [address] [place] [address] [phone] Gram Stain (SEE NOTE) Normal 1 Bal Culture FULL REPORT IN L <SEE NOTE> Normal 2 Sputum Culture And Gram Stain 05/23/2021 [facility] [address] [place] [address] [phone] Gram Stain (SEE NOTE) Normal 3 Sputum Culture FULL REPORT IN L <SEE NOTE> Normal 4 Sputum Culture And Gram Stain 04/30/2021 [facility] [address] [place] [address] [phone] Gram Stain (SEE NOTE) Normal 5 Sputum Culture FULL REPORT IN L <SEE NOTE> Normal 6 Sputum Culture And Gram Stain 03/26/2021 [facility] [address] [place] [address] [id number] [phone] Gram Stain (SEE NOTE) Normal 7 Sputum Culture FULL REPORT IN L <SEE NOTE> Normal 8 Sputum Culture And Gram Stain 01/30/2021 [facility] [address], [place] [id number] [phone] Gram Stain (SEE NOTE) Normal 9 Sputum Culture FULL REPORT IN L <SEE NOTE> Normal 10 FVL/[place] 01/30/2021 [employer] SEE IMAGE FVC-Pred 2.96 L FVC-Pre 0.89 L FVC-%Pred-Pre 30 L FVC-LLN 2.35 L Fev1-Pred 2.32 L Fev1-Pre 0.73 L Fev1-%Pred-Pre 31 L Fev1-LLN 1.80 L Fev6-Pred 2.87 L Fev6-Pre 0.89 L Fev6-%Pred-Pre 31 L Fev6-LLN 2.27 L Geq2icw-Fzly 79 % Sbf6dtb-Nea 82 % Sse4urh-%Pred-Pre 103 % Woy7fcq-KIT 69 % Mvm1rwq-Mrgu 97 % Tjz7exy-Ywr 100 % Dfu2lyu-%Pred-Pre 103 % FEFMax-Pred 5.94 L/E/sec FEFMax-Pre 2.11 L/E/sec FEFMax-%Pred-Pre 35 L/E/sec FEFMax-LLN 4.44 L/E/sec Hpx2175-Iign 2.34 L/E/sec Jfx8042-Mai 0.74 L/E/sec Mqc9643-%Pred-Pre 31 L/E/sec Rfz2809-PCW 1.25 L/E/sec ExpTime-Pre 5.94 sec Utg9pee4-Pqgy 82 % Jfr6hmn7-Pia 82 % Zwl4igy7-%Pred-Pre 100 % Fil6pzz6-JNC 73 % Sputum Culture And Gram Stain 01/17/2021 [facility] [address], [place] [id number] [phone] Gram Stain (SEE NOTE) Normal 11 Sputum Culture FULL REPORT IN L <SEE NOTE> Normal 12 1 FEW WBCS NO ORGANISMS SEEN 2 [...] GROWTH FEW ORGANISM 1: MOLD LIKE ORGANISM 9 QUALITY: GOOD FEW EPITHELIAL CELLS MANY WBCS FEW GRAM POSITIVE COCCI IN PAIRS AND CLUSTERS FEW GRAM NEGATIVE COCCOBACILLUS 10 FULL REPORT IN LAB NOTES (eC W and [facility]). NORMAL JEROME PRESENT ORGANISM 1: PSEUDOMONAS AERUGINOSA QUANTITY OF GROWTH FEW ORGANISM 1: PSEUDOMONAS AERUGINOSA PSEUDOMONAS AERUGINOSA: REACTION GENTAMICIN IV 80mg q8h <=1 S CEFAZOLIN IV 1gm q8h >=64 R LEVOFLOXACIN IV 500mg qd 0.5 S LEVOFLOXACIN PO 250mg qd 0.5 S LEVOFLOXACIN PO 500mg qd 0.5 S TOBRAMYCIN IV 80mg q8h <=1 S CEFTAZIDIME IV 1gm q8h 4 S PIPERACILLIN/TAZOBACTAM IV 2.25 gm q6h 8 S MEROPENEM IV 1 gm q8h 0.5 S MEROPENEM IV 500 mg q8h 0.5 S TIGECYCLINE IV 50mg q12h >=8 R CEFEPIME IV 1 gm q12h 2 S CEFEPIME IV 2 gm q12h 2 S 11 QUALITY: GOOD MANY WBCS FEW EPITHELIAL CELLS MODERATE GRAM POSITIVE COCCI IN PAIRS, CHAINS AND CLUSTERS FEW YEAST LIKE ORGANISM WITH PSEUDOHYPHAE FEW GRAM NEGATIVE RODS 12 FULL REPORT IN LAB NOTES (eC W and [facility]). NORMAL JEROME PRESENT ORGANISM 1: YEAST LIKE ORGANISM QUANTITY OF GROWTH FEW ORGANISM 1: YEAST LIKE ORGANISM Procedures Date Code Description Status 06/27/2021 14705 Remove Impacted Cerumen Complete d 06/27/2021 39749 Office/Outpatient Established Lo w MDM 20-29 Min Completed 06/26/2021 77444 Office/Outpatient Established Mo d MDM 30-39 Min Completed 06/20/2021 54231 Bronchoscopy W/Bronchial Alveola r Lavage Completed 06/12/2021 68032 Office/Outpatient Established Mo d MDM 30-39 Min Completed 04/17/2021 44733 Office/Outpatient Established Mo d MDM 30-39 Min Completed 03/01/2021 44220 Office/Outpatient Established Mo d MDM 30-39 Min Completed 02/17/2021 10733 Hospital Subsequent Care Level 2 Completed 02/16/2021 98989 Hospital Subsequent Care Level 2 Completed 02/14/2021 38734 Hospital Subsequent Care Level 2 Completed 02/13/2021 38365 Hospital Subsequent Care Level 2 Completed 02/12/2021 74033 Bronchoscopy W/Biopsy Completed 02/11/2021 22961 Hospital Subsequent Care Level 2 Completed 02/10/2021 26473 Hospital Subsequent Care Level 2 Completed 02/09/2021 98521 Hospital Subsequent Care Level 2 Completed 02/08/2021 47453 Hospital Subsequent Care Level 2 Completed 02/06/2021 60761 Hospital Subsequent Care Level 2 Completed 01/30/2021 36396 Office/Outpatient Established Mo d MDM 30-39 Min Completed 01/30/2021 59872 Spirometry Completed 01/18/2021 86517 Office/Outpatient Established Lo w MDM 20-29 Min Completed 01/17/2021 15693 Office/Outpatient Established Mo d MDM 30-39 Min Completed Medical Devices Description No Information Available Encounters Type Date Location Provider Dx Diagnosis Office Visit 06/27/2021 9:15a [facility] Sarah Simmons H61.21 Impacted cerumen, right ear H91.92 Unspecified hearing loss, le ft ear Office Visit 06/26/2021 11:00a [facility] Vic Se ars, D.O. R91.8 Other nonspecific abnormal finding of tony ng field Z85.118 Personal history of malignan t neoplasm of bronchus and lung Z86.711 Personal history of pulmonar y embolism J47.9 Bronchiectasis, uncomplicate d Office Visit 06/12/2021 11:30a [facility] Vic Se ars, D.O. R91.8 Other nonspecific abnormal finding of tony ng field I31.3 Pericardial effusion (noninf lammatory) Z85.118 Personal history of malignan t neoplasm of bronchus and lung Office Visit 04/17/2021 1:30p [facility] Vic Se ars, D.O. R04.2 Hemoptysis Z85.118 Personal history of malignan t neoplasm of bronchus and lung Z86.711 Personal history of pulmonar y embolism M25.552 Pain in left hip Office Visit 03/01/2021 1:30p [facility] Vic Se ars, D.O. R04.2 Hemoptysis Z85.118 Personal history of malignan t neoplasm of bronchus and lung Z86.711 Personal history of pulmonar y embolism M25.552 Pain in left hip Office Visit 02/17/2021 1:23a [facility] Ashley Ventura M.D. R04.2 Hemoptysis R91.8 Other nonspecific abnormal f inding of lung field R60.9 Edema, unspecified Office Visit 02/16/2021 1:23a [facility] Ashley Ventura M.D. R04.2 Hemoptysis C34.90 Malignant neoplasm of unsp p art of unsp bronchus or lung D64.9 Anemia, unspecified R60.9 Edema, unspecified Office Visit 02/14/2021 1:23a [facility] Vic Se ars, D.O. R04.2 Hemoptysis C34.90 Malignant neoplasm of unsp p art of unsp bronchus or lung Office Visit 02/13/2021 1:23a [facility] Vic Se ars, D.O. R04.2 Hemoptysis C34.90 Malignant neoplasm of unsp p art of unsp bronchus or lung Office Visit 02/11/2021 1:23a [facility] Vic Se ars, D.O. R04.2 Hemoptysis R00.0 Tachycardia, unspecified D72.829 Elevated white blood cell co unt, unspecified Office Visit 02/10/2021 1:23a [facility] Vic Se ars, D.O. R04.2 Hemoptysis C34.90 Malignant neoplasm of unsp p art of unsp bronchus or lung D72.829 Elevated white blood cell co unt, unspecified Z86.711 Personal history of pulmonar y embolism Office Visit 02/09/2021 1:23a [facility] Vic Se ars, D.O. R04.2 Hemoptysis C34.90 Malignant neoplasm of unsp p art of unsp bronchus or lung D72.829 Elevated white blood cell co unt, unspecified Z86.711 Personal history of pulmonar y embolism Office Visit 02/08/2021 1:23a [facility] Heather Loaiza MD R04.2 Hemoptysis B96.5 Pseudomonas (mallei) causing diseases classd elswhr Z85.118 Personal history of malignan t neoplasm of bronchus and lung Z86.711 Personal history of pulmonar y embolism Office Visit 02/06/2021 1:23a [facility] Heather Loaiza MD R04.2 Hemoptysis B96.5 Pseudomonas (mallei) causing diseases classd elswhr Z85.118 Personal history of malignan t neoplasm of bronchus and lung Z86.711 Personal history of pulmonar y embolism Office Visit 01/30/2021 1:00p [facility] Vic Se ars, D.O. J44.9 Chronic obstructive pulmonary disease, u nspecified G47.33 Obstructive sleep apnea (jitendra lt) (pediatric) Office Visit 01/18/2021 11:15a [facility] David Maldonado MD J37.0 Chronic laryngitis Office Visit 01/17/2021 1:00p [facility] Vic Se ars, D.O. R91.8 Other nonspecific abnormal finding of tony ng field J44.9 Chronic obstructive pulmonar y disease, unspecified G47.33 Obstructive sleep apnea (jitendra lt) (pediatric) Assessments Date Code Description Provider 06/27/2021 H61.21 Impacted cerumen, right ear Teddy Francis MD 06/27/2021 H91.92 Unspecified hearing loss, [...] in left hip Vic Sears, D.O . 02/17/2021 R04.2 Hemoptysis Dale, Leida Ramirez 02/17/2021 R91.8 Other nonspecific abnormal findi ng of lung field Ashley Hunter M.D. 02/17/2021 R60.9 Edema, unspecified Linda Hunter M.D. 02/16/2021 R04.2 Hemoptysis Ashley Hunter M.D. 02/16/2021 C34.90 Malignant neoplasm o f unspecified part of unspecified bronchus or lung Ashley Hunter M.D. 02/16/2021 D64.9 Anemia, unspecified DaleMattie morrison M.D. 02/16/2021 R60.9 Edema, unspecified Linda Hunter M.D. 02/14/2021 R04.2 Hemoptysis Vic Sears, D.O. 02/14/2021 C34.90 Malignant neoplasm o f unspecified part of unspecified bronchus or lung Vic Sears, D.O. 02/13/2021 R04.2 Hemoptysis Vic Sears, D.O. 02/13/2021 C34.90 Malignant neoplasm o f unspecified part of unspecified bronchus or lung Vic Sears, D.O. 02/12/2021 R91.8 Other nonspecific abnormal findi ng of lung field Vic Sears, D.O. 02/12/2021 R04.2 Hemoptysis Vic Sears, D.O. 02/11/2021 R04.2 Hemoptysis Vic Sears, D.O. 02/11/2021 R00.0 Tachycardia, unspecified Vic Se ars, D.O. 02/11/2021 D72.829 Elevated white blood cell count, unspecified Vic Sears, D.O. 02/10/2021 R04.2 Hemoptysis Vic Sears, D.O. 02/10/2021 C34.90 Malignant neoplasm o f unspecified part of unspecified bronchus or lung Vic Sears, D.O. 02/10/2021 D72.829 Elevated white blood cell count, unspecified Vic Sears, D.O. 02/10/2021 Z86.711 Personal history of pulmonary em bolism Vic Sears, D.O. 02/09/2021 R04.2 Hemoptysis Vic Sears, D.O. 02/09/2021 C34.90 Malignant neoplasm o f unspecified part of unspecified bronchus or lung Vic Sears, D.O. 02/09/2021 D72.829 Elevated white blood cell count, unspecified Vic Sears, D.O. 02/09/2021 Z86.711 Personal history of pulmonary em bolism Vic Sears, D.O. 02/08/2021 R04.2 Hemoptysis Victoriano Loaiza MD 02/08/2021 B96.5 Pseudomonas (aerugin severiano) (mallei) (pseudomallei) as the cause of diseases classified elsewhere Victoriano Loaiza MD 02/08/2021 Z85.118 Personal history of other malignant neoplasm of bronchus and lung Victoriano Loaiza MD 02/08/2021 Z86.711 Personal history of pulmonary em bolism Victoriano Loaiza MD 02/06/2021 R04.2 Hemoptysis Victoriano Loaiza MD 02/06/2021 B96.5 Pseudomonas (aerugin severiano) (mallei) (pseudomallei) as the cause of diseases classified elsewhere Victoriano Loaiza MD 02/06/2021 Z85.118 Personal history of other malignant neoplasm of bronchus and lung Victoriano Loaiza MD 02/06/2021 Z86.711 Personal history of pulmonary em bolism Victoriano Loaiza MD 01/30/2021 J44.9 Chronic obstructive pulmonary di sease, unspecified Vic Sears, D.O. 01/30/2021 G47.33 Obstructive sleep apnea (adult) (pediatric) Vic Sears, D.O. 01/18/2021 J37.0 Chronic laryngitis David pruitt MD 01/17/2021 R91.8 Other nonspecific abnormal findi ng of lung field Vic Sears, D.O. 01/17/2021 J44.9 Chronic obstructive pulmonary di sease, unspecified Vic Sears, D.O. 01/17/2021 G47.33 Obstructive sleep apnea (adult) (pediatric) Vic Garcia D.O. Plan of Treatment Future Appointment(s):* 07/20/2021 2:00 pm - Ashley Hunter M.D. at [facility] * 08/22/2021 11:15 am - JENN Rodríguez at [facility] * 10/02/2021 2:30 pm - Vic Garcia D.O. at [facility] Functional Status Description No Information Available Mental Status Description No Information Available Referrals Refer to Reason for Referral Status Appt Date [place], Audiology Audiogram Scheduled Nichol Melendrez MD [address] [facility], [place] [address] [phone] Radiology/Procedure 92180 Closed 04/09/2021
--- OUTSIDE RECORDS SUMMARY | 2021-08-25 12:37 | CCD | Continuity of Care Document ---
Author Author Chantale ARREDONDO M.D. Organization Unknown Address [address] [place] [address] Phone [phone] Care Team Providers Care Laminator Preforms Name Role Phone Franca Nicole M.D. AUTM [phone] Marlin Carter M.D. AUTM [phone] AUTM Unavailable Problems Active Problems Provider Date Essential hypertension oWn Cope MD Onset: 09/01/2017 Sudden hearing loss [...] Garcia D.O. Onset: 09/07/2019 Bleeding from nose Geneva Hunt.O. Onset: 03/13/2020 Arthralgia of the pelvic region and thigh Vic Garcia D.O. Onset: 03/01/2021 Bronchiectasis Ashley Arredondo M.D. Onset: 07/20/2021 Disorder of pericardium Vic Garcia D.O. Onset: History of malignant neoplasm of bronchus Vic Garcia D.O. Onset: 06/12/2021 Bronchiectasis Vic Garcia D.O. Onset: 06/26/2021 Impacted cerumen Cesar Francis MD Onset: 06/27/2021 Hearing loss Cesar Francis MD Onset: 06/27/2021 Social History [...] one puff by mouth every day 180units Vic Garcia D.O. 09/2020 Xarelto 20mg Tablets Take 1 Tablet By Mouth Every Day 90tabs Parish HuntOKellen 05/14/2018 Oxygen 2l with exertion- LCW Parish Hunt OKellen 05/04/2018 Spiriva Respimat 2.5mcg/Act Aeroso l 2 puffs every day 12gm Parish HuntO. 04/20/2018 Claritin 10mg Tablets 1 tab by [...] 100mg Capsules one tab po daily 14caps [email or web address] FongO. 01/30/2021 - Fluconazole 150mg Tablets one tab, repeat once in 2 days if thrush persistent 14tabs Parish HuntOKellen 01/30/2021 - 01/29/2021 Immunizations CPT Code Status Date Vaccine Lot # [id number] Given 09/07/2019 Prevnar 13 52921 Given 08/18/2019 Flublock, Quadrivalent Vital Signs Date Vital Result Comment 07/20/2021 2:01pm BP Systolic 115 mmHg BP Diastolic 68 mmHg Heart Rate 80 /min O2 % BldC Oximetry 992 % Height 60 inches 5'0" Weight 169.38 lb BMI (Body Mass Index) 33.1 kg/m2 Arvin Body Weight 100 lb Weight 76.829 kg BSA (Body Surface Area) 1.74 m2 06/27/2021 9:02am BP Systolic 100 mmHg BP Diastolic 68 mmHg Heart Rate 81 /min O2 % BldC Oximetry 982 % Height 60 inches 5'0" Weight 173.00 lb BMI (Body Mass Index) 33.8 kg/m2 Arvin Body Weight 100 lb Weight 78.473 kg BSA (Body Surface Area) 1.76 m2 Results Test Acquired Date Facility Test Result H/L Range Note Bal Culture And Gram Stain 06/20/2021 [facility] [address] [place] [address] [phone] Gram Stain (SEE NOTE) Normal 1 Bal Culture FULL REPORT IN L <SEE NOTE> Normal 2 Sputum Culture And Gram Stain 05/23/2021 [facility] [address] [place] [address] [phone] Gram Stain (SEE NOTE) Normal 3 Sputum Culture FULL REPORT IN L <SEE NOTE> Normal 4 Sputum Culture And Gram Stain 04/30/2021 [facility] [address] [place] [address]607 [phone] Gram Stain (SEE NOTE) Normal 5 Sputum Culture FULL REPORT IN L <SEE NOTE> Normal 6 Sputum Culture And Gram Stain 03/26/2021 [facility] [address] [place] [address]253 [phone] Gram Stain (SEE NOTE) Normal 7 Sputum Culture FULL REPORT IN L <SEE NOTE> Normal 8 Sputum Culture And Gram Stain 01/30/2021 [facility] [address] [place] [address]12 [phone] Gram Stain (SEE NOTE) Normal 9 Sputum Culture FULL REPORT IN L <SEE NOTE> Normal 10 FVL/[facility]way 01/30/2021 [facility] SEE IMAGE FVC-Pred 2.96 L FVC-Pre 0.89 L FVC-%Pred-Pre 30 L FVC-LLN 2.35 L Fev1-Pred 2.32 L Fev1-Pre 0.73 L Fev1-%Pred-Pre 31 L Fev1-LLN 1.80 L Fev6-Pred 2.87 L Fev6-Pre 0.89 L Fev6-%Pred-Pre 31 L Fev6-LLN 2.27 L Rsc9yyp-Rfgy 79 % Lie6sns-Wdb 82 % Nva0vrh-%Pred-Pre 103 % Pnt4wxy-QDR 69 % Oai7gfr-Zlmn 97 % Jic4mpo-Ajg 100 % Rrt9czc-%Pred-Pre 103 % FEFMax-Pred 5.94 L/E/sec FEFMax-Pre 2.11 L/E/sec FEFMax-%Pred-Pre 35 L/E/sec FEFMax-LLN 4.44 L/E/sec Elg2341-Cyzz 2.34 L/E/sec Lxm3427-Yvt 0.74 L/E/sec Ghj0826-%Pred-Pre 31 L/E/sec Rbr0102-WTD 1.25 L/E/sec ExpTime-Pre 5.94 sec Fqd0dbs1-Joah 82 % Zxb4dbc1-Mpm 82 % Diq5hhl7-%Pred-Pre 100 % Baa7zps0-BYD 73 % 1 FEW WBCS NO ORGANISMS SEEN 2 [...] CEFEPIME IV 2 gm q12h 2 S Procedures Date Code Description Status 07/20/2021 42378 Office/Outpatient Established Mo d MDM 30-39 Min Completed 06/27/2021 62035 Office/Outpatient Established Lo w MDM 20-29 Min Completed 06/27/2021 68914 Remove Impacted Cerumen Complete d 06/26/2021 67752 Office/Outpatient Established Mo d MDM 30-39 Min Completed 06/20/2021 11892 Bronchoscopy W/Bronchial Alveola r Lavage Completed 06/12/2021 97254 Office/Outpatient Established Mo d MDM 30-39 Min Completed 04/17/2021 86334 Office/Outpatient Established Mo d MDM 30-39 Min Completed 03/01/2021 79868 Office/Outpatient Established Mo d MDM 30-39 Min Completed 02/17/2021 88176 Hospital Subsequent Care Level 2 Completed 02/16/2021 63376 Hospital Subsequent Care Level 2 Completed 02/14/2021 86161 Hospital Subsequent Care Level 2 Completed 02/13/2021 13470 Hospital Subsequent Care Level 2 Completed 02/12/2021 31552 Bronchoscopy W/Biopsy Completed 02/11/2021 78934 Hospital Subsequent Care Level 2 Completed 02/10/2021 74257 Hospital Subsequent Care Level 2 Completed 02/09/2021 76625 Hospital Subsequent Care Level 2 Completed 02/08/2021 40078 Hospital Subsequent Care Level 2 Completed 02/06/2021 57250 Hospital Subsequent Care Level 2 Completed 01/30/2021 22971 Office/Outpatient Established Mo d MDM 30-39 Min Completed 01/30/2021 96788 Spirometry Completed Medical Devices Description No Information Available Encounters Type Date Location Provider Dx Diagnosis Office Visit 07/20/2021 2:00p [facility] K Ashley scott M.D. J47.9 Bronchiectasis, uncomplicate d Z85.118 Personal history of malignan t neoplasm of bronchus and lung Z86.711 Personal history of pulmonar y embolism J98.09 Other diseases of bronchus, not elsewhere classified Office Visit 06/27/2021 9:15a [facility] Sarah Simmons H61.21 Impacted cerumen, right ear H91.92 Unspecified hearing loss, le ft ear Office Visit 06/26/2021 11:00a [facility] Vic Se ars, D.O. R91.8 Other nonspecific abnormal finding of tony ng field Z85.118 Personal history of malignan t neoplasm of bronchus and lung Z86.711 Personal history of pulmonar y embolism J47.9 Bronchiectasis, uncomplicate d Office Visit 06/12/2021 11:30a [facility] Vic Se ars, D.O. R91.8 Other nonspecific abnormal finding of tony ng field I31.3 Pericardial effusion (noninf lammatory) Z85.118 Personal history of malignan t neoplasm of bronchus and lung Office Visit 04/17/2021 1:30p [facility] Vic Se ars, D.O. R04.2 Hemoptysis Z85.118 Personal history of malignan t neoplasm of bronchus and lung Z86.711 Personal history of pulmonar y embolism M25.552 Pain in left hip Office Visit 03/01/2021 1:30p [facility] Vic Se ars, D.O. R04.2 Hemoptysis Z85.118 Personal history of malignan t neoplasm of bronchus and lung Z86.711 Personal history of pulmonar y embolism M25.552 Pain in left hip Office Visit 02/17/2021 1:23a [facility] Ashley Ventura M.D. R04.2 Hemoptysis R91.8 Other nonspecific abnormal f inding of lung field R60.9 Edema, unspecified Office Visit 02/16/2021 1:23a [facility] Ashley Ventura M.D. R04.2 Hemoptysis C34.90 Malignant neoplasm of unsp p art of unsp bronchus or lung D64.9 Anemia, unspecified R60.9 Edema, unspecified Office Visit 02/14/2021 1:23a [facility] Vic Se ars, D.O. R04.2 Hemoptysis C34.90 Malignant neoplasm of unsp p art of unsp bronchus or lung Office Visit 02/13/2021 1:23a [facility] Vic Se ars, D.O. R04.2 Hemoptysis C34.90 Malignant neoplasm of unsp p art of unsp bronchus or lung Office Visit 02/11/2021 1:23a [facility] Vic Se ars, D.O. R04.2 Hemoptysis R00.0 Tachycardia, unspecified D72.829 Elevated white blood cell co unt, unspecified Office Visit 02/10/2021 1:23a [facility] Vic Se ars, D.O. R04.2 Hemoptysis C34.90 Malignant neoplasm of unsp p art of unsp bronchus or lung D72.829 Elevated white blood cell co unt, unspecified Z86.711 Personal history of pulmonar y embolism Office Visit 02/09/2021 1:23a [facility] Vic Se noemí, D.O. R04.2 Hemoptysis C34.90 Malignant neoplasm of unsp p art of unsp bronchus or lung D72.829 Elevated white blood cell co unt, unspecified Z86.711 Personal history of pulmonar y embolism Office Visit 02/08/2021 1:23a [facility] [place] Loaiza MD R04.2 Hemoptysis B96.5 Pseudomonas (mallei) causing diseases classd elswhr Z85.118 Personal history of malignan t neoplasm of bronchus and lung Z86.711 Personal history of pulmonar y embolism Office Visit 02/06/2021 1:23a [facility] [place] Loaiza MD R04.2 Hemoptysis B96.5 Pseudomonas (mallei) causing diseases classd elswhr Z85.118 Personal history of malignan t neoplasm of bronchus and lung Z86.711 Personal history of pulmonar y embolism Office Visit 01/30/2021 1:00p [facility] Vic Se dowd D.OKellen J44.9 Chronic obstructive pulmonary disease, u nspecified G47.33 Obstructive sleep apnea (jitendra lt) (pediatric) Assessments Date Code Description Provider 07/20/2021 J47.9 Bronchiectasis Ashley Arredondo M.D. 07/20/2021 Z85.118 Personal history of other malignant neoplasm of bronchus and lung Ashley Arredondo M.D. 07/20/2021 Z86.711 Personal history of pulmonary em bolism Ashley Arredondo M.D. 07/20/2021 J98.09 Other diseases of bronchus, not elsewhere classified Ashley Arredondo M.D. 06/27/2021 H61.21 Impacted cerumen, right ear Teddy Francis MD 06/27/2021 H91.92 Unspecified hearing loss, left e ar Cesar Francis MD 06/26/2021 R91.8 Other nonspecific abnormal findi ng of lung field Vic Garcia D.O. 06/26/2021 Z85.118 Personal history of other [...] Vic Sears, D.O . 02/17/2021 R04.2 Hemoptysis Ashley Arerdondo M.D. 02/17/2021 R91.8 Other nonspecific abnormal findi ng of lung field Ashley Arredondo M.D. 02/17/2021 R60.9 Edema, unspecified Linda Arredondo M.D. 02/16/2021 R04.2 Hemoptysis Ashley Arredondo M.D. 02/16/2021 C34.90 Malignant neoplasm o f unspecified part of unspecified bronchus or lung Ashley Arredondo M.D. 02/16/2021 D64.9 Anemia, unspecified Mattie Arredondo M.D. 02/16/2021 R60.9 Edema, unspecified Linda Arredondo M.D. 02/14/2021 R04.2 Hemoptysis Vic Sears, D.O. [...] Elevated white blood cell count, unspecified Vic Garcia D.O. 02/09/2021 Z86.711 Personal history of pulmonary em bolism Vic Garcia D.O. 02/08/2021 R04.2 Hemoptysis Victoriano Loaiza MD [...] MD 01/30/2021 J44.9 Chronic obstructive pulmonary di kerie, unspecified Vic Garcia D.O. 01/30/2021 G47.33 Obstructive sleep apnea (adult) (pediatric) Vic Garcia D.O. Plan of Treatment Future Appointment(s):* 08/22/2021 11:15 am - JENN Rodríguez at [facility] * 10/02/2021 2:30 pm - Vic Garcia D.O. at [facility] 07/20/2021 - Ashley Arredondo M.D.* J47.9 Bronchiectasis * Z85.118 Personal history of other malignant neoplasm of bronchus and lung * Z86.711 Personal history of pulmonary embolism * J98.09 Other diseases of bronchus, not elsewhere classified * * Follow up:* Follow-up in Sep after she had repeat CT chest with Dr. Garcia Functional Status Description No Information Available Mental Status Description No Information Available Referrals Refer to Reason for Referral Status Appt Date [place], Audiology Audiogram Scheduled Nichol Melendrez MD [id number] [facility], [place] [address] [phone] Radiology/Procedure [id number] Closed 04/09/2021
--- OUTSIDE RECORDS SUMMARY | 2021-08-25 12:37 | CCD | Continuity of Care Document ---
Author Author Chantale BLAKE P. C[facility] Organization Unknown Address [address] [place] [id number] Phone [phone] Care Team Providers Care Planning Management It Specialist Name Role Phone Evelyn Jackman MD AUT Unavailable OSMEL ALVAREZ M.D. P.CKellen URIZ [phone] Social History Type Date Description Comments Sex Unknown Allergies, Adverse Reactions, Alerts Active Allergies Criticality Reaction | Severity Comments Date Penicillin V Unable to assess criticality 08/10/2020 Seafood Unable to assess criticality 08/10/2020 Medications Active Medications SIG Qnty Indications Ordering Provide r Date Cardizem CD 180mg Caps ER 24HR 1 by mouth every day at bedtime 90caps [facility] Furosemide 20mg Tablets 1 tab every day 90tamatthew Alvarez M.D., P.[facility] 05/31/2021 Potassium Chloride ER 10Meq Capsul es ER 1 cap twice a day 180caps [facility] 021 Multaq 400mg Tablets 1 by mouth twice a day 180tabs [facility] 021 Ferrous Sulfate 325(65Fe) mg Table ts 1 by mouth every day 90tabs [facility] 021 Diltiazem HCL 30mg Tablets take 1 tablet by mouth twice daily 180tabs [facility] Breo Ellipta 200-25mcg/Inh Aerosol [facility] 11/07/2020 Xarelto 10mg Tablets take one tablet by mouth daily 90tabs [facility] 000 Pantoprazole Sodium 40mg Tablets D R 1 tab by mouth every day 90tabs [facility] Spiriva Respimat 2.5mcg/Act Aeroso l Inhale To Puffs By Mouth Every Day Unknown Metoprolol Tartrate 25mg Tablets 1/2 tab twice a day 180tabs [facility] 000 History Medications Corlanor 5mg Tablets 1 by mouth twice a day 60tabs [facility] 021 - 03/21/2021 Cardizem 30mg Tablets 1 by mouth twice a day 60tabs [facility] 021 - 03/13/2021 Prednisone 20mg Tablets 30 mg qd taper [facility] 01/29/2021 - 03/13/2021 Furosemide 40mg Tablets 1 by mouth every day 90tabs [facility] 021 - 03/13/2021 Vital Signs Date Vital Result [...] Result H/L Range Note Comprehensive Metabolic Panel 04/20/2021 [facility] [address] [phone] Comprehensive Metabo (SEE NOTE) 1 Sodium 138 mEq/L 134 - 153 Potassium [...] mL/min Afr Amer GFR >60 mL/min 2 Laboratory test finding 04/20/[address] [address] [phone] Magnesium Serum 1.7 mg/dL 1.7 - 2.2 3 CBC W/Automated Diff 04/20/2021 [place] [phone] CBC W/Automated Diff (SEE NOTE) 4 WBC 5.9 10^3/uL 4.2 - 11.0 RBC [...] Lymph 4.9 % Low 25.0 - 40.0 Leslie 10.8 % High 3.0 - 8.0 Eos 2.5 % 0.0 - 7.0 Baso 0.2 % 0.0 - 2.5 %Ig 1.0 % High 0.0 - 0.0 %NRBC 0.0 % 0.0 - 0.0 #Neut 4.77 10^3/uL 2.00 - 6.90 #Lymph 0.29 10^3/uL Low 0.60 - 3.40 #Leslie 0.64 10^3/uL 0.00 - 0.90 #Eos 0.15 10^3/uL 0.00 - 0.70 #Baso 0.01 10^3/uL 0.00 - 0.20 #Ig 0.06 10^3/uL 0.00 - 0.10 #NRBC 0.00 10^3/uL 0.00 - 0.00 Manual Diff SEE BELOW Segs 87 % High 37 - 80 %Lymph 2 % Low 25 - 40 %Leslie 9 % High 3 - 8 %Eos 2 % 0 - 7 RBC Morph SEE BELOW Aniso 1+ Abnormal Normal: None Seen Macro 1+ Abnormal Normal: None Seen Poik 1+ Abnormal Normal: None Seen 5 PLT Est NORMAL Normal: Normal 6 CBC W/Automated Diff 04/19/[address] [address] [phone] CBC W/Automated Diff (SEE NOTE) 7 WBC 7.3 10^3/uL 4.2 - 11.0 RBC [...] Lymph 6.5 % Low 25.0 - 40.0 Leslie 4.7 % 3.0 - 8.0 Eos 2.2 % 0.0 - 7.0 Baso 0.3 % 0.0 - 2.5 %Ig 0.4 % High 0.0 - 0.0 %NRBC 0.0 % 0.0 - 0.0 #Neut 6.25 10^3/uL 2.00 - 6.90 #Lymph 0.47 10^3/uL Low 0.60 - 3.40 #Leslie 0.34 10^3/uL 0.00 - 0.90 #Eos 0.16 10^3/uL 0.00 - 0.70 #Baso 0.02 10^3/uL 0.00 - 0.20 #Ig 0.03 10^3/uL 0.00 - 0.10 #NRBC 0.00 10^3/uL 0.00 - 0.00 Manual Diff NOT INDICATED RBC Morph NOT INDICATED Comprehensive Metabolic Panel 04/19/2021 [facility] [address] [place] [address] [phone] Comprehensive Metabo (SEE NOTE) 8 Sodium 136 mEq/L 134 - 153 Potassium [...] >60 mL/min Afr Amer GFR >60 mL/min 9 Laboratory test finding [facility] [address] [place] [address] [phone] Magnesium Serum 1.5 mg/dL Low 1.7 - 2.2 Pro-BNP 692 pg/mL High 0 - 125 Iron 45 g/dL 42 - 135 Laboratory test finding 04/18/2021 [facility] [address] [place] [phone] Troponin T 0.02 NG/ML 0.00 - 0.10 10 CBC W/Automated Diff 04/18/[address] [address] [phone] CBC W/Automated Diff (SEE NOTE) 11 WBC 8.9 10^3/uL 4.2 - 11.0 RBC [...] Lymph 5.7 % Low 25.0 - 40.0 Leslie 2.7 % Low 3.0 - 8.0 Eos 2.0 % 0.0 - 7.0 Baso 0.2 % 0.0 - 2.5 %Ig 0.6 % High 0.0 - 0.0 %NRBC 0.0 % 0.0 - 0.0 #Neut 7.88 10^3/uL High 2.00 - 6.90 #Lymph 0.51 10^3/uL Low 0.60 - 3.40 #Leslie 0.24 10^3/uL 0.00 - 0.90 #Eos 0.18 10^3/uL 0.00 - 0.70 #Baso 0.02 10^3/uL 0.00 - 0.20 #Ig 0.05 10^3/uL 0.00 - 0.10 #NRBC 0.00 10^3/uL 0.00 - 0.00 Manual Diff NOT INDICATED RBC Morph NOT INDICATED Laboratory test finding 04/18/2021 [facility] [address] [place] [address] [phone] Troponin T 0.02 NG/ML 0.00 - 0.10 12 Magnesium Serum 1.7 mg/dL 1.7 - 2.2 T4 - Free 1.23 ng/dL 0.93 - 1.70 Comprehensive Metabolic Panel 04/18/2021 [facility] [address] [place] [phone] Comprehensive Metabo (SEE NOTE) 13 Sodium 141 mEq/L 134 - 153 Potassium [...] >60 mL/min Afr Amer GFR >60 mL/min 14 Laboratory test finding 04/18/2021 [facility] l [address] [place] [phone] Pro-BNP 766 pg/mL High 0 - 125 TSH Highly Sensitive 1.68 uIU/mL 0.47 - 5.01 Iron 77 g/dL 42 - 135 Vitamin B12 Serum 390 pg/mL 232 - 1245 Laboratory test finding 04/18/[address] [address] [phone] Troponin T 0.02 NG/ML 0.00 - 0.10 15 Covid-19 04/17/[address] [address] [phone] Covid-19 NOT DETECTED 16 Covid-19 Reenter NOT DETECTED 17 Laboratory test finding 04/11/2021 [facility] [address] [place] [phone] Magnesium Serum 1.5 mg/dL Low 1.7 - 2.2 CBC W/Automated Diff 04/11/[address] [address] [phone] CBC W/Automated Diff (SEE NOTE) 18 WBC 7.2 10^3/uL 4.2 - 11.0 RBC [...] Lymph 11.4 % Low 25.0 - 40.0 Leslie 8.9 % High 3.0 - 8.0 Eos 0.0 % 0.0 - 7.0 Baso 0.1 % 0.0 - 2.5 %Ig 1.0 % High 0.0 - 0.0 %NRBC 0.0 % 0.0 - 0.0 #Neut 5.66 10^3/uL 2.00 - 6.90 #Lymph 0.82 10^3/uL 0.60 - 3.40 #Leslie 0.64 10^3/uL 0.00 - 0.90 #Eos 0.00 10^3/uL 0.00 - 0.70 #Baso 0.01 10^3/uL 0.00 - 0.20 #Ig 0.07 10^3/uL 0.00 - 0.10 #NRBC 0.00 10^3/uL 0.00 - 0.00 Manual Diff NOT INDICATED RBC Morph NOT INDICATED Comprehensive Metabolic Panel 04/11/2021 [facility] [address] [place] [phone] Comprehensive Metabo (SEE NOTE) 19 Sodium 139 mEq/L 134 - 153 Potassium [...] >60 mL/min Afr Amer GFR >60 mL/min 20 CBC W/Automated Diff 03/21/[address] [phone] CBC W/Automated Diff (SEE NOTE) 21 WBC 7.6 10^3/uL 4.2 - 11.0 RBC [...] Lymph 12.5 % Low 25.0 - 40.0 Leslie 12.8 % High 3.0 - 8.0 Eos 2.2 % 0.0 - 7.0 Baso 1.1 % 0.0 - 2.5 %Ig 0.5 % High 0.0 - 0.0 %NRBC 0.0 % 0.0 - 0.0 #Neut 5.39 10^3/uL 2.00 - 6.90 #Lymph 0.95 10^3/uL 0.60 - 3.40 #Leslie 0.97 10^3/uL High 0.00 - 0.90 #Eos 0.17 10^3/uL 0.00 - 0.70 #Baso 0.08 10^3/uL 0.00 - 0.20 #Ig 0.04 10^3/uL 0.00 - 0.10 #NRBC 0.00 10^3/uL 0.00 - 0.00 Manual Diff NOT INDICATED RBC Morph NOT INDICATED Comprehensive Metabolic Panel 03/21/2021 [facility] [address] [place] [phone] Comprehensive Metabo (SEE NOTE) 22 Sodium 139 mEq/L 134 - 153 Potassium [...] >60 mL/min Afr Amer GFR >60 mL/min 23 Laboratory test finding 03/21/2021 [facility] [address] [place] [address] [phone] Magnesium Serum 1.3 mg/dL Low 1.7 - 2.2 Magnesium Serum 03/16/[address] [address] [phone] Magnesium 0.9 mg/dL Critical low 1.7 - 2.2 Call/ Read Back SHIVANI MATA RN By: DESIRAE Date/Time 03.16.21904 Laboratory test finding 03/16/2021 [facility] [address] [place] [address] [phone] Vitamin B12 Serum 573 pg/mL 232 - 1245 Laboratory test finding 03/16/2021 [facility] [address] [place] [address] [phone] Iron 46 g/dL 42 - 135 T4 - Free 1.54 ng/dL 0.93 - 1.70 TSH Highly Sensitive 1.34 uIU/mL 0.47 - 5.01 Comprehensive Metabolic Panel 03/16/2021 [facility] [address] [place] [address] [phone] Comprehensive Metabo (SEE NOTE) 24 Sodium 139 mEq/L 134 - 153 Potassium [...] mL/min Afr Amer GFR >60 mL/min 25 CBC W/Automated Diff 03/16/2021 [place] [address] [phone] CBC W/Automated Diff (SEE NOTE) 26 WBC 9.2 10^3/uL 4.2 - 11.0 RBC [...] Lymph 9.7 % Low 25.0 - 40.0 Leslie 13.2 % High 3.0 - 8.0 Eos 0.8 % 0.0 - 7.0 Baso 0.5 % 0.0 - 2.5 %Ig 0.4 % High 0.0 - 0.0 %NRBC 0.0 % 0.0 - 0.0 #Neut 6.94 10^3/uL High 2.00 - 6.90 #Lymph 0.89 10^3/uL 0.60 - 3.40 #Leslie 1.21 10^3/uL High 0.00 - 0.90 #Eos 0.07 10^3/uL 0.00 - 0.70 #Baso 0.05 10^3/uL 0.00 - 0.20 #Ig 0.04 10^3/uL 0.00 - 0.10 #NRBC 0.00 10^3/uL 0.00 - 0.00 Manual Diff SEE BELOW Segs 81 % High 37 - 80 %Lymph 4 % Low 25 - 40 %Leslie 14 % High 3 - 8 %Eos 1 % 0 - 7 RBC Morph SEE BELOW Aniso 1+ Abnormal Normal: None Seen Hypo 1+ Abnormal Normal: None Seen 27 Stomatocytes 1+ Abnormal Normal: None Seen 28 CBC W/Automated Diff 03/08/[address] [address] [phone] CBC W/Automated Diff (SEE NOTE) 29 WBC 8.6 10^3/uL 4.2 - 11.0 RBC [...] Lymph 9.2 % Low 25.0 - 40.0 Leslie 16.8 % High 3.0 - 8.0 Eos 0.5 % 0.0 - 7.0 Baso 0.8 % 0.0 - 2.5 %Ig 1.2 % High 0.0 - 0.0 %NRBC 0.0 % 0.0 - 0.0 #Neut 6.13 10^3/uL 2.00 - 6.90 #Lymph 0.79 10^3/uL 0.60 - 3.40 #Leslie 1.44 10^3/uL High 0.00 - 0.90 #Eos 0.04 10^3/uL 0.00 - 0.70 #Baso 0.07 10^3/uL 0.00 - 0.20 #Ig 0.10 10^3/uL 0.00 - 0.10 #NRBC 0.00 10^3/uL 0.00 - 0.00 Manual Diff SEE BELOW Segs 76 % 37 - 80 %Lymph 12 % Low 25 - 40 %Leslie 10 % High 3 - 8 %Eos 2 % 0 - 7 RBC Morph SEE BELOW Aniso 1+ Abnormal Normal: None Seen Poik 1+ Abnormal Normal: None Seen Hypo 1+ Abnormal Normal: None Seen 30 Ovalocytes 1+ Abnormal Normal: None Seen Stomatocytes 1+ Abnormal Normal: None Seen 31 Laboratory test finding 03/08/2021 [facility] [address] [place], [place] [phone] Hgba1c 4.8 % 4.4 - 6.1 32 Iron 41 g/dL Low 42 - 135 Comprehensive Metabolic Panel 03/08/2021 [facility] [address] [place], [place] [phone] Comprehensive Metabo (SEE NOTE) 33 Sodium 141 mEq/L 134 - 153 Potassium [...] GFR >60 mL/min 34 Laboratory test finding 03/08/[address] [address] [phone] Vitamin B12 Serum 527 pg/mL 232 - 1245 Urinalysis 03/08/[address] [address] [phone] Urinalysis (SEE NOTE) 35 Source R Color yellow Normal: Yellow Clarity hazy Normal: Clear Spec Superior 1.015 1.001 - 1.030 pH 6 5 [...] Normal: None Seen Laboratory test finding 03/08/[address] [address] [phone] Magnesium Serum 1.0 mg/dL Low 1.7 - 2.2 Culture Urine 03/08/[address] [address] [phone] Culture Urine (SEE NOTE) 36 1 COMPREHENSIVE METABOLIC PANE L 2 Male [...] 80 and above >32 mL/min Normal 3 can run on todays blood 4 COMPLETE BLOOD COUNT 5 { SICKLE CELL (NORMAL: NONE SEEN ) 6 COMMENT: 7 COMPLETE BLOOD COUNT 8 COMPREHENSIVE METABOLIC [...] Troponin T. 11 COMPLETE BLOOD COUNT 12 TROPONIN T 0.1 ng/ml Recommended as the clinical th reshold value for Troponin T. 13 COMPREHENSIVE METABOLIC PANE L 14 Male [...] 80 and above >32 mL/min Normal 15 TROPONIN T 0.1 ng/ml Recommended as the clinical th reshold value for Troponin T. 16 First test?: N~Employed in [facility]?: N~Symptomatic as defined by CDC?: N~Hospitalized?: Y 17 { PROCEDURAL CONTROL VALID KIT LOT # [...] THE SOLE BASIS FOR PATIENT MANAGEMENT DECISIONS. 18 COMPLETE BLOOD COUNT 19 COMPREHENSIVE METABOLIC PANE L 20 Male GFR Interprentation 20-49 yrs >60 mL/min Normal 50-59 yrs >56 mL/min Normal 60-69 yrs >49 mL/min Normal 70-79yrs >42 mL/min Normal 80 and above >35 mL/min Normal Female GFR Interpretation 20-39 yrs >60 mL/min Normal 40-49 yrs >58 mL/min Normal 50-59 yrs >51 mL/min Normal 60-69 yrs >45 mL/min Normal 70-79 yrs >39 mL/min Normal 80 and above >32 mL/min Normal 21 COMPLETE BLOOD COUNT 22 COMPREHENSIVE METABOLIC PANE L 23 Male GFR Interprentation 20-49 yrs >60 mL/min Normal 50-59 yrs >56 mL/min Normal 60-69 yrs >49 mL/min Normal 70-79yrs >42 mL/min Normal 80 and above >35 mL/min Normal Female GFR Interpretation 20-39 yrs >60 mL/min Normal 40-49 yrs >58 mL/min Normal 50-59 yrs >51 mL/min Normal 60-69 yrs >45 mL/min Normal 70-79 yrs >39 mL/min Normal 80 and above >32 mL/min Normal 24 COMPREHENSIVE METABOLIC PANE L 25 Male [...] 80 and above >32 mL/min Normal 26 COMPLETE BLOOD COUNT 27 { SICKLE CELL (NORMAL: NONE SEEN ) 28 COMMENT: 29 COMPLETE BLOOD COUNT 30 { SICKLE CELL (NORMAL: NONE SEEN ) 31 COMMENT: 32 {A1] {HB] 33 COMPREHENSIVE METABOLIC PANE L 34 Male [...] 80 and above >32 mL/min Normal 35 URINALYSIS 36 _CULTURE URINE_ ^$[id number] ^^[id number] $$770066 ^^839148 $$512052 $$570047 $$080511 $$613169 $$196877 $$697683 $$669103 $$069323 $$391132 $$138897 $$154622 $$583328 $$962815 $$000039 $$908463 $$905337 $$042567 $$822497 $$081827 $$178702 $$022289 $$788251 $$631180 ^^226179 $$021826 $$379876 $$[id number] -- Continued on next page -- Patient: JUANITO Daniels Order: [id number] Page 2 Culture: CULTURE URINE Status: Final -- Continued on next page -- Patient: JUANITO Daniels Order: [id number] Page 2 Culture: CULTURE URINE Status: Prelim $$[id number] $$[id number] REPORTED DATE/TIME: 03/13/2021 07:06 Culture: CULTURE URINE Status: Final Urine Culture,Comprehensive: P1 No growth in 36 - 48 hours. Previous result entered on 03/10/2021 23:58 ET No growth after 18-24 hours. 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 Liquid : Yonas Rascon MD NPI #: Hemmer Automatic : 03/12/[email or web address] REF 03/13/[id number].SENT REF Procedures Date Code Description Status 07/05/2021 92791 EKG Completed 07/05/2021 95795 Office/Outpatient Established Mo d MDM 30-39 Min Completed 06/07/2021 67005 Carotid Duplex Scan Bilat Comple domenico 05/31/2021 20582 Office/Outpatient Established Mo d MDM 30-39 Min Completed 05/31/2021 83765 EKG Completed 04/30/2021 61482 Office/Outpatient Established Mo d MDM 30-39 Min Completed 04/30/2021 70522 EKG Completed 04/20/2021 46564 Observation Discharge Completed 04/19/2021 73534 Office/Outpatient Established Mo d MDM 30-39 Min Completed 04/18/2021 14326 Observation Subsequent Level 2 C ompleted 04/17/2021 49950 Observation Initial 2 Completed 03/21/2021 90742 Office/Outpatient Established Mo d MDM 30-39 Min Completed 03/16/2021 43477 Office/Outpatient Established Mo d MDM 30-39 Min Completed 03/16/2021 59525 EKG Completed 03/15/2021 96991 Office/Outpatient Established Lo w MDM 20-29 Min Completed 03/15/2021 91333 EKG Completed 03/13/2021 57105 Office/Outpatient Established Lo w MDM 20-29 Min Completed 03/09/2021 61668 24 Hour Holter Monitoring Comple domenico 03/08/2021 52197 Office/Outpatient Established Mo d MDM 30-39 Min Completed 03/08/2021 49415 EKG Completed 01/29/2021 15962 Office/Outpatient Established Mo d MDM 30-39 Min Completed Encounters Type Date Location Provider Dx Diagnosis Office Visit 07/05/2021 2:45p [facility] I48.0 Paroxysmal atrial fibrillation I11.9 Hypertensive heart disease w [facility] heart failure I49.49 Other premature depolarizati on Office Visit 05/31/2021 2:15p [facility] I48.0 Paroxysmal atrial fibrillation J43.9 Emphysema, unspecified I11.9 Hypertensive heart disease w [facility] heart failure I49.49 Other premature depolarizati on Office Visit 04/30/2021 2:45p [facility] I11.9 Hypertensive heart disease without heart failure I48.0 Paroxysmal atrial fibrillati on I26.99 Other pulmonary embolism wit hout acute cor pulmonale I49.49 Other premature depolarizati on Office Visit 03/21/2021 11:15a [facility] E83.42 Hypomagnesemia J44.9 Chronic obstructive pulmonar y disease, unspecified R00.0 Tachycardia, unspecified Office Visit 03/16/2021 9:45a [facility] R00.0 Tachycardia, unspecified E87.6 Hypokalemia E83.42 Hypomagnesemia I49.49 Other premature depolarizati on Office Visit 03/15/2021 3:00p [facility] I11.9 Hypertensive heart disease without heart failure R00.0 Tachycardia, unspecified R00.2 Palpitations I49.49 Other premature depolarizati on Office Visit 03/13/2021 10:00a [facility] I50.20 Unspecified systolic (congestive) heart failure I11.9 [facility]0 Tachycardia, unspecified Office Visit 03/08/2021 10:15a [facility] R00.2 Palpitations R42 Dizziness and giddiness I95.9 Hypotension, unspecified I49.49 Other premature depolarizati on Office Visit 01/29/2021 2:45p [facility] 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 07/05/2021 I11.9 Hypertensive heart disease witho ut heart failure [facility] 07/05/2021 I49.49 Other premature depolarization Sarah [facility] 06/07/2021 G45.9 Transient cerebral ischemic kierra ck, connie [facility] 06/07/2021 R42 Dizziness and giddiness O[facility]el yun [facility] 05/31/2021 I48.0 Paroxysmal atrial fibrillation [facility] 05/31/2021 J43.9 Emphysema, connie white [facility] 05/31/2021 I11.9 Hypertensive heart disease witho ut heart failure [facility] 05/31/2021 I49.49 Other premature depolarization Sarah [facility] 04/30/2021 I11.9 Hypertensive heart disease witho ut heart failure [facility] 04/30/2021 I48.0 Paroxysmal atrial fibrillation Sarah [facility] 04/30/2021 I26.99 Other pulmonary embolism without acute cor pulmonale [facility] 04/30/2021 I49.49 Other premature depolarization Sarah [facility] 04/20/2021 I48.0 Paroxysmal atrial fibrillation [facility] 04/20/2021 K21.9 Gastro-esophageal reflux disease without esophagitis [facility] 04/20/2021 I10 Essential (primary) hypertension [facility] 04/19/2021 I48.0 Paroxysmal atrial fibrillation Sarah [facility] 04/19/2021 K21.9 Gastro-esophageal reflux disease without esophagitis [facility] 04/19/2021 I10 Essential (primary) hypertension [facility] 04/18/2021 I48.0 Paroxysmal atrial fibrillation Sarah [facility] 04/18/2021 K21.9 Gastro-esophageal reflux disease without esophagitis [facility] 04/18/2021 I10 Essential (primary) hypertension [facility] 04/17/2021 I48.0 Paroxysmal atrial fibrillation Sarah [facility] 04/17/2021 K21.9 Gastro-esophageal reflux disease without esophagitis [facility] 04/17/2021 I10 Essential (primary) hypertension [facility] 03/21/2021 E83.42 Hypomagnesemia Evelyn Blake, [facility] 03/21/2021 J44.9 Chronic obstructive pulmonary di sease, unspecified [facility] 03/21/2021 R00.0 Tachycardia, unspecified [facility]el anderson [facility] 03/16/2021 R00.0 Tachycardia, unspecified [facility] anderson [facility] 03/16/2021 E87.6 Hypokalemia Evelyn Blake[facility] 03/16/2021 E83.42 Hypomagnesemia Evelyn Blake[facility] 03/16/2021 I49.49 Other premature depolarization Sarah [facility] 03/15/2021 I11.9 Hypertensive heart disease witho nm heart failure [facility] 03/15/2021 R00.0 Tachycardia, unspecified [facility]el anderson [facility] 03/15/2021 R00.2 Palpitations Evelyn Blake[facility] 03/15/2021 I49.49 Other premature depolarization Sarah [facility] 03/13/2021 I50.20 Unspecified systolic (congestive ) heart failure [facility] 03/13/2021 I11.9 Hypertensive heart disease witho nm heart failure [facility] 03/13/2021 R00.0 Tachycardia, unspecified [facility] anderson [facility] 03/09/2021 R00.2 Palpitations Evelyn Blake[facility] 03/08/2021 R00.2 Palpitations Evelyn Blake[facility] 03/08/2021 R42 Dizziness and giddiness O[facility]el yun [facility] 03/08/2021 I95.9 Hypotension, unspecified [facility]el anderson [facility] 03/08/2021 I49.49 Other premature depolarization M bonnie [facility] 01/29/2021 I11.9 Hypertensive heart disease witho ut heart failure [facility] 01/29/2021 I50.20 Unspecified systolic (congestive ) heart failure [facility] 01/29/2021 D02.22 Carcinoma in situ of left bronch us and lung [facility] Plan of Treatment Future Appointment(s):* 08/08/2021 11:00 am - [facility] at [facility] Referrals Refer to Dr Reason for Referral Status Appt Date Evelyn Jackman MD Please eval. and treat this patient for Afib, She needs an ablation. Thank you. Scheduled 05/21/[address] [facility] [id number]
--- OUTSIDE RECORDS SUMMARY | 2021-08-25 12:37 | CCD | Continuity of Care Document ---
Author Author Chantale BLAKE P. C. Organization Unknown Address [address] [place] [id number] Phone [phone] Care Team Providers Care Chief Clerk Name Role Phone Evelyn Jackman MD AUT Unavailable OSMEL ALVAREZ M.D. P.CKellen RUIZ [phone] Social History Type Date Description Comments Sex [...] Result H/L Range Note CBC W/Automated Diff 08/02/[address] [id number] [phone] CBC W/Automated Diff (SEE NOTE) 1 WBC 7.7 10^3/uL 4.2 - 11.0 RBC [...] Lymph 3.9 % Low 25.0 - 40.0 [place] 6.0 % 3.0 - 8.0 Eos 3.0 % 0.0 - 7.0 Baso 0.4 % 0.0 - 2.5 %Ig 0.5 % High 0.0 - 0.0 %NRBC 0.0 % 0.0 - 0.0 #Neut 6.62 10^3/uL 2.00 - 6.90 #Lymph 0.30 10^3/uL Low 0.60 - 3.40 #[place] 0.46 10^3/uL 0.00 - 0.90 #Eos 0.23 10^3/uL 0.00 - 0.70 #Baso 0.03 10^3/uL 0.00 - 0.20 #Ig 0.04 10^3/uL 0.00 - 0.10 #NRBC 0.00 10^3/uL 0.00 - 0.00 Manual Diff SEE BELOW Segs 84 % High 37 - 80 %Lymph 6 % Low 25 - 40 %[place] 3 % 3 - 8 %Eos 7 % 0 - 7 RBC Morph SEE BELOW [place] 2+ Abnormal Normal: None Seen Hypo 1+ Abnormal Normal: None Seen 2 PLT Est DECREASED Abnormal Normal: Normal 3 Comprehensive Metabolic Panel 08/02/2021 [facility] [address] [place], [place] [id number] [phone] Comprehensive Metabo (SEE NOTE) 4 Sodium 136 mEq/L 134 - 153 Potassium [...] 49 mL/min Afr Amer GFR 60 mL/min 5 Laboratory test finding 08/02/[address] [address] [phone] Pro-BNP 2923 pg/mL High 0 - 125 Iron 25 g/dL Low 42 - 135 Vitamin B12 Serum 346 pg/mL 232 - 1245 Laboratory test finding 08/02/[address] [address] [phone] D-Dimer 3.59 ug/mL High 0.27 - 0.50 Lactic Acid (Lactate) 0.7 mmol/L 0.2 - 2.2 Magnesium Serum 1.7 mg/dL 1.7 - 2.2 CBC W/Automated Diff 04/20/[address] [address] [phone] CBC W/Automated Diff (SEE NOTE) 6 WBC 5.9 10^3/uL 4.2 - 11.0 RBC [...] Lymph 4.9 % Low 25.0 - 40.0 [place] 10.8 % High 3.0 - 8.0 Eos 2.5 % 0.0 - 7.0 Baso 0.2 % 0.0 - 2.5 %Ig 1.0 % High 0.0 - 0.0 %NRBC 0.0 % 0.0 - 0.0 #Neut 4.77 10^3/uL 2.00 - 6.90 #Lymph 0.29 10^3/uL Low 0.60 - 3.40 #[place] 0.64 10^3/uL 0.00 - 0.90 #Eos 0.15 10^3/uL 0.00 - 0.70 #Baso 0.01 10^3/uL 0.00 - 0.20 #Ig 0.06 10^3/uL 0.00 - 0.10 #NRBC 0.00 10^3/uL 0.00 - 0.00 Manual Diff SEE BELOW Segs 87 % High 37 - 80 %Lymph 2 % Low 25 - 40 %[place] 9 % High 3 - 8 %Eos 2 % 0 - 7 RBC Morph SEE BELOW [place] 1+ Abnormal Normal: None Seen Macro 1+ Abnormal Normal: None Seen Poik 1+ Abnormal Normal: None Seen 7 PLT Est NORMAL Normal: Normal 8 Comprehensive Metabolic Panel 04/20/2021 [facility] [address] [place], [place] [address] [phone] Comprehensive Metabo (SEE NOTE) 9 Sodium 138 mEq/L 134 - 153 Potassium [...] >60 mL/min Afr Amer GFR >60 mL/min 10 Laboratory test finding [facility] [address] [place] [phone] Magnesium Serum 1.7 mg/dL 1.7 - 2.2 11 Laboratory test finding 04/19/2021 [facility] [address] [place] [address] [phone] Magnesium Serum 1.5 mg/dL Low 1.7 - 2.2 Pro-BNP 692 pg/mL High 0 - 125 Iron 45 g/dL 42 - 135 Comprehensive Metabolic Panel 04/19/2021 [facility] [address] [place] [phone] Comprehensive Metabo (SEE NOTE) 12 Sodium 136 mEq/L 134 - 153 Potassium [...] >60 mL/min Afr Amer GFR >60 mL/min 13 CBC W/Automated Diff 04/19/[address] [address] [phone] CBC W/Automated Diff (SEE NOTE) 14 WBC 7.3 10^3/uL 4.2 - 11.0 RBC [...] Lymph 6.5 % Low 25.0 - 40.0 [place] 4.7 % 3.0 - 8.0 Eos 2.2 % 0.0 - 7.0 Baso 0.3 % 0.0 - 2.5 %Ig 0.4 % High 0.0 - 0.0 %NRBC 0.0 % 0.0 - 0.0 #Neut 6.25 10^3/uL 2.00 - 6.90 #Lymph 0.47 10^3/uL Low 0.60 - 3.40 #[place] 0.34 10^3/uL 0.00 - 0.90 #Eos 0.16 10^3/uL 0.00 - 0.70 #Baso 0.02 10^3/uL 0.00 - 0.20 #Ig 0.03 10^3/uL 0.00 - 0.10 #NRBC 0.00 10^3/uL 0.00 - 0.00 Manual Diff NOT INDICATED RBC Morph NOT INDICATED Laboratory test finding 04/18/[address] [address] [phone] Troponin T 0.02 NG/ML 0.00 - 0.10 15 CBC W/Automated Diff 04/18/2021 [place] [id number] [phone] CBC W/Automated Diff (SEE NOTE) 16 WBC 8.9 10^3/uL 4.2 - 11.0 RBC [...] Lymph 5.7 % Low 25.0 - 40.0 [place] 2.7 % Low 3.0 - 8.0 Eos 2.0 % 0.0 - 7.0 Baso 0.2 % 0.0 - 2.5 %Ig 0.6 % High 0.0 - 0.0 %NRBC 0.0 % 0.0 - 0.0 #Neut 7.88 10^3/uL High 2.00 - 6.90 #Lymph 0.51 10^3/uL Low 0.60 - 3.40 #[place] 0.24 10^3/uL 0.00 - 0.90 #Eos 0.18 10^3/uL 0.00 - 0.70 #Baso 0.02 10^3/uL 0.00 - 0.20 #Ig 0.05 10^3/uL 0.00 - 0.10 #NRBC 0.00 10^3/uL 0.00 - 0.00 Manual Diff NOT INDICATED RBC Morph NOT INDICATED Laboratory test finding 04/18/2021 [facility] [address] [place] [address] [phone] Troponin T 0.02 NG/ML 0.00 - 0.10 17 Magnesium Serum 1.7 mg/dL 1.7 - 2.2 T4 - Free 1.23 ng/dL 0.93 - 1.70 Comprehensive Metabolic Panel 04/18/2021 [facility] [address] [place] [address] [phone] Comprehensive Metabo (SEE NOTE) 18 Sodium 141 mEq/L 134 - 153 Potassium [...] GFR >60 mL/min 19 Laboratory test finding 04/18/2021 [place] [address] [phone] Pro-BNP 766 pg/mL High 0 - 125 TSH Highly Sensitive 1.68 uIU/mL 0.47 - 5.01 Iron 77 g/dL 42 - 135 Vitamin B12 Serum 390 pg/mL 232 - 1245 Laboratory test finding 04/18/2021 [place] [address] [phone] Troponin T 0.02 NG/ML 0.00 - 0.10 20 Covid-19 04/17/2021 [place] [address] [phone] Covid-19 NOT DETECTED 21 Covid-19 [place] NOT DETECTED 22 CBC W/Automated Diff 04/11/[address] [address] [phone] CBC W/Automated Diff (SEE NOTE) 23 WBC 7.2 10^3/uL 4.2 - 11.0 RBC [...] Lymph 11.4 % Low 25.0 - 40.0 [place] 8.9 % High 3.0 - 8.0 Eos 0.0 % 0.0 - 7.0 Baso 0.1 % 0.0 - 2.5 %Ig 1.0 % High 0.0 - 0.0 %NRBC 0.0 % 0.0 - 0.0 #Neut 5.66 10^3/uL 2.00 - 6.90 #Lymph 0.82 10^3/uL 0.60 - 3.40 #[place] 0.64 10^3/uL 0.00 - 0.90 #Eos 0.00 10^3/uL 0.00 - 0.70 #Baso 0.01 10^3/uL 0.00 - 0.20 #Ig 0.07 10^3/uL 0.00 - 0.10 #NRBC 0.00 10^3/uL 0.00 - 0.00 Manual Diff NOT INDICATED RBC Morph NOT INDICATED Laboratory test finding 04/11/2021 [facility] [address] [place] [address] [phone] Magnesium Serum 1.5 mg/dL Low 1.7 - 2.2 Comprehensive Metabolic Panel 04/11/2021 [facility] [address] [place] [address] [phone] Comprehensive Metabo (SEE NOTE) 24 Sodium 139 [...] GFR >60 mL/min 25 CBC W/Automated Diff 03/21/[address] [address] [phone] CBC W/Automated Diff (SEE NOTE) 26 WBC 7.6 10^3/uL 4.2 - 11.0 RBC [...] Lymph 12.5 % Low 25.0 - 40.0 [place] 12.8 % High 3.0 - 8.0 Eos 2.2 % 0.0 - 7.0 Baso 1.1 % 0.0 - 2.5 %Ig 0.5 % High 0.0 - 0.0 %NRBC 0.0 % 0.0 - 0.0 #Neut 5.39 10^3/uL 2.00 - 6.90 #Lymph 0.95 10^3/uL 0.60 - 3.40 #[place] 0.97 10^3/uL High 0.00 - 0.90 #Eos 0.17 10^3/uL 0.00 - 0.70 #Baso 0.08 10^3/uL 0.00 - 0.20 #Ig 0.04 10^3/uL 0.00 - 0.10 #NRBC 0.00 10^3/uL 0.00 - 0.00 Manual Diff NOT INDICATED RBC Morph NOT INDICATED Comprehensive Metabolic Panel 03/21/2021 [facility] [address] [address] [phone] Comprehensive Metabo (SEE NOTE) 27 Sodium 139 mEq/L 134 - 153 Potassium [...] >60 mL/min Afr Amer GFR >60 mL/min 28 Laboratory test finding 03/21/[address] [phone] Magnesium Serum 1.3 mg/dL Low 1.7 - 2.2 CBC W/Automated Diff 03/16/[address] [address] [phone] CBC W/Automated Diff (SEE NOTE) 29 WBC 9.2 10^3/uL 4.2 - 11.0 RBC [...] Lymph 9.7 % Low 25.0 - 40.0 [place] 13.2 % High 3.0 - 8.0 Eos 0.8 % 0.0 - 7.0 Baso 0.5 % 0.0 - 2.5 %Ig 0.4 % High 0.0 - 0.0 %NRBC 0.0 % 0.0 - 0.0 #Neut 6.94 10^3/uL High 2.00 - 6.90 #Lymph 0.89 10^3/uL 0.60 - 3.40 #[place] 1.21 10^3/uL High 0.00 - 0.90 #Eos 0.07 10^3/uL 0.00 - 0.70 #Baso 0.05 10^3/uL 0.00 - 0.20 #Ig 0.04 10^3/uL 0.00 - 0.10 #NRBC 0.00 10^3/uL 0.00 - 0.00 Manual Diff SEE BELOW Segs 81 % High 37 - 80 %Lymph 4 % Low 25 - 40 %[place] 14 % High 3 - 8 %Eos 1 % 0 - 7 RBC Morph SEE BELOW [place] 1+ Abnormal Normal: None Seen Hypo 1+ Abnormal Normal: None Seen 30 Stomatocytes 1+ Abnormal Normal: None Seen 31 Comprehensive Metabolic Panel 03/16/2021 [facility] [address] [place], [place] [address] [phone] Comprehensive Metabo (SEE NOTE) 32 Sodium 139 mEq/L 134 - 153 Potassium [...] >60 mL/min Afr Amer GFR >60 mL/min 33 Laboratory test finding 03/16/2021 [facility] [address] [place] [address] [phone] Iron 46 g/dL 42 - 135 T4 - Free 1.54 ng/dL 0.93 - 1.70 TSH Highly Sensitive 1.34 uIU/mL 0.47 - 5.01 Magnesium Serum 03/16/2021 [place] [address] [phone] Magnesium 0.9 mg/dL Critical low 1.7 - 2.2 Call/ Read Back SHIVANI MATA RN By: DESIRAE Date/Time 03.16.21904 Laboratory test finding 03/16/2021 [facility] [address] [place] [address] [phone] Vitamin B12 Serum 573 pg/mL 232 - 1245 CBC W/Automated Diff 03/08/[address] [address] [phone] CBC W/Automated Diff (SEE NOTE) 34 WBC 8.6 10^3/uL 4.2 - 11.0 RBC [...] Lymph 9.2 % Low 25.0 - 40.0 [place] 16.8 % High 3.0 - 8.0 Eos 0.5 % 0.0 - 7.0 Baso 0.8 % 0.0 - 2.5 %Ig 1.2 % High 0.0 - 0.0 %NRBC 0.0 % 0.0 - 0.0 #Neut 6.13 10^3/uL 2.00 - 6.90 #Lymph 0.79 10^3/uL 0.60 - 3.40 #[place] 1.44 10^3/uL High 0.00 - 0.90 #Eos 0.04 10^3/uL 0.00 - 0.70 #Baso 0.07 10^3/uL 0.00 - 0.20 #Ig 0.10 10^3/uL 0.00 - 0.10 #NRBC 0.00 10^3/uL 0.00 - 0.00 Manual Diff SEE BELOW Segs 76 % 37 - 80 %Lymph 12 % Low 25 - 40 %[place] 10 % High 3 - 8 %Eos 2 % 0 - 7 RBC Morph SEE BELOW [place] 1+ Abnormal Normal: None Seen Poik 1+ Abnormal Normal: None Seen Hypo 1+ Abnormal Normal: None Seen 35 Ovalocytes 1+ Abnormal Normal: None Seen Stomatocytes 1+ Abnormal Normal: None Seen 36 Laboratory test finding 03/08/2021 [facility] [address] [place], [place] [address] [phone] Hgba1c 4.8 % 4.4 - 6.1 37 Iron 41 g/dL Low 42 - 135 Comprehensive Metabolic Panel 03/08/2021 [facility] [address] [place], [place] [address] [phone] Comprehensive Metabo (SEE NOTE) 38 Sodium 141 mEq/L 134 - 153 Potassium [...] >60 mL/min Afr Amer GFR >60 mL/min 39 Laboratory test finding 03/08/[address] [address] [phone] Vitamin B12 Serum 527 pg/mL 232 - 1245 Urinalysis 03/08/[address] [address] [phone] Urinalysis (SEE NOTE) 40 Source R Color yellow Normal: Yellow Clarity hazy Normal: Clear Spec [place] 1.015 1.001 - 1.030 pH 6 5 [...] Normal: None Seen Laboratory test finding 03/08/[address] [address] [phone] Magnesium Serum 1.0 mg/dL Low 1.7 - 2.2 Culture Urine 03/08/[address] [address] [phone] Culture Urine (SEE NOTE) 41 1 COMPLETE BLOOD COUNT 2 { SICKLE CELL (NORMAL: NONE SEEN ) 3 COMMENT: 4 COMPREHENSIVE METABOLIC PANE L 5 Male [...] mL/min Normal 6 COMPLETE BLOOD COUNT 7 { SICKLE CELL (NORMAL: NONE SEEN ) 8 COMMENT: 9 COMPREHENSIVE METABOLIC PANE L 10 Male GFR Interprentation 20-49 yrs >60 mL/min Normal 50-59 yrs >56 mL/min Normal 60-69 yrs >49 mL/min Normal 70-79yrs >42 mL/min Normal 80 and above >35 mL/min Normal Female GFR Interpretation 20-39 yrs >60 mL/min Normal 40-49 yrs >58 mL/min Normal 50-59 yrs >51 mL/min Normal 60-69 yrs >45 mL/min Normal 70-79 yrs >39 mL/min Normal 80 and above >32 mL/min Normal 11 can run on todays blood 12 COMPREHENSIVE METABOLIC PANE L 13 Male [...] 80 and above >32 mL/min Normal 14 COMPLETE BLOOD COUNT 15 TROPONIN T 0.1 ng/ml Recommended as the clinical th reshold value for Troponin T. 16 COMPLETE BLOOD COUNT 17 TROPONIN T 0.1 ng/ml Recommended as the clinical th reshold value for Troponin T. 18 COMPREHENSIVE METABOLIC PANE L 19 Male [...] 80 and above >32 mL/min Normal 20 TROPONIN T 0.1 ng/ml Recommended as the clinical th reshold value for Troponin T. 21 First test?: N~Employed in [facility] [employer] [facility] [employer]?: N~Symptomatic as defined by CDC?: N~Hospitalized?: Y 22 { PROCEDURAL CONTROL VALID KIT LOT # [...] THE SOLE BASIS FOR PATIENT MANAGEMENT DECISIONS. 23 COMPLETE BLOOD COUNT 24 COMPREHENSIVE METABOLIC PANE L 25 Male [...] mL/min Normal 26 COMPLETE BLOOD COUNT 27 COMPREHENSIVE METABOLIC PANE L 28 Male GFR Interprentation 20-49 yrs >60 mL/min Normal 50-59 yrs >56 mL/min Normal 60-69 yrs >49 mL/min Normal 70-79yrs >42 mL/min Normal 80 and above >35 mL/min Normal Female GFR Interpretation 20-39 yrs >60 mL/min Normal 40-49 yrs >58 mL/min Normal 50-59 yrs >51 mL/min Normal 60-69 yrs >45 mL/min Normal 70-79 yrs >39 mL/min Normal 80 and above >32 mL/min Normal 29 COMPLETE BLOOD COUNT 30 { SICKLE CELL (NORMAL: NONE SEEN ) 31 COMMENT: 32 COMPREHENSIVE METABOLIC PANE L 33 Male GFR Interprentation 20-49 yrs >60 mL/min Normal 50-59 yrs >56 mL/min Normal 60-69 yrs >49 mL/min Normal 70-79yrs >42 mL/min Normal 80 and above >35 mL/min Normal Female GFR Interpretation 20-39 yrs >60 mL/min Normal 40-49 yrs >58 mL/min Normal 50-59 yrs >51 mL/min Normal 60-69 yrs >45 mL/min Normal 70-79 yrs >39 mL/min Normal 80 and above >32 mL/min Normal 34 COMPLETE BLOOD COUNT 35 { SICKLE CELL (NORMAL: NONE SEEN ) 36 COMMENT: 37 {A1] {HB] 38 COMPREHENSIVE METABOLIC PANE L 39 Male GFR Interprentation 20-49 yrs >60 mL/min Normal 50-59 yrs >56 mL/min Normal 60-69 yrs >49 mL/min Normal 70-79yrs >42 mL/min Normal 80 and above >35 mL/min Normal Female GFR Interpretation 20-39 yrs >60 mL/min Normal 40-49 yrs >58 mL/min Normal 50-59 yrs >51 mL/min Normal 60-69 yrs >45 mL/min Normal 70-79 yrs >39 mL/min Normal 80 and above >32 mL/min Normal 40 URINALYSIS 41 _CULTURE URINE_ ^$[id number] ^^[id number] $$914227 ^^130086 $$712317 $$864923 $$360609 $$968835 $$328746 $$330367 $$124230 $$802689 $$406472 $$881085 $$383717 $$102362 $$975669 $$931818 $$658210 $$810429 $$085973 $$906896 $$084668 $$957645 $$231393 $$284558 $$164710 ^^173755 $$514344 $$443940 $$005882 -- Continued on next page -- Patient: JUANITO Daniels Order: [id number] Page 2 Culture: CULTURE URINE Status: Final -- Continued on next page -- Patient: JUANITO Daniels Order: [id number] Page 2 Culture: CULTURE URINE Status: Prelim $$[id number] $$[id number] REPORTED DATE/TIME: 03/13/2021 07:06 Culture: CULTURE URINE Status: Final Urine Culture,Comprehensive: P1 No growth in 36 - 48 hours. Previous result entered on 03/10/2021 23:58 ET No growth after 18-24 hours. P1 [facility] #: [id number] [address] [place] [id number] [facility] [id number] Customer Professional : Yonas Rascon MD NPI #: Intervention Manager : [email or web address] REF 03/[email or web address] REF Procedures Date Code Description Status 07/05/2021 19300 EKG Completed 07/05/2021 33320 Office/Outpatient Established Mo d MDM 30-39 Min Completed 06/07/2021 37011 Carotid Duplex Scan Bilat Nimco domenico 05/31/2021 07212 Office/Outpatient Established Mo d MDM 30-39 Min Completed 05/31/2021 78265 EKG Completed 04/30/2021 41282 Office/Outpatient Established Mo d MDM 30-39 Min Completed 04/30/2021 88260 EKG Completed 04/20/2021 96071 Observation Discharge Completed 04/19/2021 65115 Office/Outpatient Established Mo d MDM 30-39 Min Completed 04/18/2021 01436 Observation Subsequent Level 2 C ompleted 04/17/2021 42702 Observation Initial 2 Completed 03/21/2021 13975 Office/Outpatient Established Mo d MDM 30-39 Min Completed 03/16/2021 56548 Office/Outpatient Established Mo d MDM 30-39 Min Completed 03/16/2021 25008 EKG Completed 03/15/2021 03967 Office/Outpatient Established Lo w MDM 20-29 Min Completed 03/15/2021 15933 EKG Completed 03/13/2021 96798 Office/Outpatient Established Lo w MDM 20-29 Min Completed 03/09/2021 32532 24 Hour Holter Monitoring Comple domenico 03/08/2021 93178 Office/Outpatient Established Mo d MDM 30-39 Min Completed 03/08/2021 52832 EKG Completed Encounters Type Date Location Provider Dx Diagnosis Office Visit 07/05/2021 2:45p [facility] Osmel Alvarez M.D.,P. C. I48.0 Paroxysmal atrial fibrillation I11.9 Hypertensive heart disease w [facility] heart failure I49.49 Other premature depolarizati on Office Visit 05/31/2021 2:15p [facility] Osmel Alvarez M.D.,P. C. I48.0 Paroxysmal atrial fibrillation J43.9 Emphysema, unspecified I11.9 Hypertensive heart disease w [facility] heart failure I49.49 Other premature depolarizati on Office Visit 04/30/2021 2:45p [facility] Osmel Alvarez M.D.,P. C. I11.9 Hypertensive heart disease without heart failure I48.0 Paroxysmal atrial fibrillati on I26.99 Other pulmonary embolism wit hout acute cor pulmonale I49.49 Other premature depolarizati on Office Visit 03/21/2021 11:15a [facility] Osmel Alvarez M.D.,P. C. E83.42 Hypomagnesemia J44.9 Chronic obstructive pulmonar y disease, unspecified R00.0 Tachycardia, unspecified Office Visit 03/16/2021 9:45a [facility] Osmel Alvarez M.D.,P. C. R00.0 Tachycardia, unspecified E87.6 Hypokalemia E83.42 Hypomagnesemia I49.49 Other premature depolarizati on Office Visit 03/15/2021 3:00p [facility] Osmel Alvarez M.D.,P. C. I11.9 Hypertensive heart disease without heart failure R00.0 Tachycardia, unspecified R00.2 Palpitations I49.49 Other premature depolarizati on Office Visit 03/13/2021 10:00a [facility] Osmel Alvarez M.D.,P. C. I50.20 Unspecified systolic (congestive) heart failure I11.9 Hypertensive heart disease w ithout heart failure R00.0 Tachycardia, unspecified Office Visit 03/08/2021 10:15a [facility] Osmel Alvarez M.D.,P. C. R00.2 Palpitations [...] M.D.,P.C. 05/31/2021 I11.9 Hypertensive heart disease witho md heart failure Osmel Alvarez M.D[facility]. 05/31/2021 I49.49 Other premature depolarization Sarah Alvarez M.D.,P.C. 04/30/2021 I11.9 Hypertensive heart disease witho md heart failure Osmel Alvarez M.D[facility]. 04/30/2021 I48.0 [...] M.D.,P.C. 03/15/2021 I11.9 Hypertensive heart disease witho md heart failure Osmel Alvarez M.D[facility] 03/15/2021 R00.0 [...] - Osmel Alvarez M.D[facility]P.C[facility] at [facility] Referrals Refer to Reason for Referral Status Appt Date Evelyn Jackman MD Please eval. and treat this patient for Afib, She needs an ablation. Thank you. Scheduled 05/21/2021 [address] [facility] [address]
--- OUTSIDE RECORDS SUMMARY | 2021-08-25 12:37 | CCD | Continuity of Care Document ---
Author Author Chantale BLAKE P. C. Organization Unknown Address [address] [place] [id number] Phone [phone] Care Team Providers Care Wastewater Project Manager Name Role Phone Evelyn Jackman MD AUT Unavailable OSMEL ALVAREZ M.D. P.CKellen RUIZ [phone] Social History Type Date Description Comments Sex [...] H/L Range Note CBC W/Automated Diff 08/02/[address] [phone] CBC W/Automated Diff (SEE NOTE) 1 WBC [...] Lymph 3.9 % Low 25.0 - 40.0 Hudson 6.0 % 3.0 - 8.0 Eos 3.0 % 0.0 - 7.0 Baso 0.4 % 0.0 - 2.5 %Ig 0.5 % High 0.0 - 0.0 %NRBC 0.0 % 0.0 - 0.0 #Neut 6.62 10^3/uL 2.00 - 6.90 #Lymph 0.30 10^3/uL Low 0.60 - 3.40 #Hudson 0.46 10^3/uL 0.00 - 0.90 #Eos 0.23 10^3/uL 0.00 - 0.70 #Baso 0.03 10^3/uL 0.00 - 0.20 #Ig 0.04 10^3/uL 0.00 - 0.10 #NRBC 0.00 10^3/uL 0.00 - 0.00 Manual Diff SEE BELOW Segs 84 % High 37 - 80 %Lymph 6 % Low 25 - 40 %Hudson 3 % 3 - 8 %Eos 7 % 0 - 7 RBC Morph SEE BELOW Aniso 2+ Abnormal Normal: None Seen Hypo 1+ Abnormal Normal: None Seen 2 PLT Est DECREASED Abnormal Normal: Normal 3 Comprehensive Metabolic Panel 08/02/2021 [facility] [address] [place], [place] [id number] [phone] Comprehensive Metabo (SEE NOTE) 4 Sodium 136 [...] 60 mL/min 5 Laboratory test finding 08/02/2021 [place] [address] [phone] Pro-BNP 2923 pg/mL High 0 - 125 Laboratory test finding 08/02/[address] [address] [phone] D-Dimer 3.59 ug/mL High 0.27 - 0.50 Lactic Acid (Lactate) 0.7 mmol/L 0.2 - 2.2 Magnesium Serum 1.7 mg/dL 1.7 - 2.2 CBC W/Automated Diff 04/20/[address] [address] [phone] CBC W/Automated Diff (SEE NOTE) 6 WBC [...] Lymph 4.9 % Low 25.0 - 40.0 Hudson 10.8 % High 3.0 - 8.0 Eos 2.5 % 0.0 - 7.0 Baso 0.2 % 0.0 - 2.5 %Ig 1.0 % High 0.0 - 0.0 %NRBC 0.0 % 0.0 - 0.0 #Neut 4.77 10^3/uL 2.00 - 6.90 #Lymph 0.29 10^3/uL Low 0.60 - 3.40 #Hudson 0.64 10^3/uL 0.00 - 0.90 #Eos 0.15 10^3/uL 0.00 - 0.70 #Baso 0.01 10^3/uL 0.00 - 0.20 #Ig 0.06 10^3/uL 0.00 - 0.10 #NRBC 0.00 10^3/uL 0.00 - 0.00 Manual Diff SEE BELOW Segs 87 % High 37 - 80 %Lymph 2 % Low 25 - 40 %Hudson 9 % High 3 - 8 %Eos 2 % 0 - 7 RBC Morph SEE BELOW Aniso 1+ Abnormal Normal: None Seen Macro 1+ Abnormal Normal: None Seen Poik 1+ Abnormal Normal: None Seen 7 PLT Est NORMAL Normal: Normal 8 Comprehensive Metabolic Panel 04/20/2021 [facility] [address] [place] [address] [phone] Comprehensive Metabo (SEE NOTE) 9 Sodium 138 [...] >60 mL/min 10 Laboratory test finding 04/20/2021 [facility] [address] [place] [phone] Magnesium Serum 1.7 mg/dL 1.7 - 2.2 11 Laboratory test finding 04/19/2021 [facility] [address] [place] [phone] Magnesium Serum 1.5 mg/dL Low 1.7 - 2.2 Pro-BNP 692 pg/mL High 0 - 125 Iron 45 g/dL 42 - 135 Comprehensive Metabolic Panel 04/19/2021 [facility] [address] [place] [phone] Comprehensive Metabo (SEE NOTE) 12 Sodium 136 [...] >60 mL/min 13 CBC W/Automated Diff 04/19/[address] [address] [phone] CBC W/Automated Diff (SEE NOTE) 14 WBC [...] Lymph 6.5 % Low 25.0 - 40.0 Hudson 4.7 % 3.0 - 8.0 Eos 2.2 % 0.0 - 7.0 Baso 0.3 % 0.0 - 2.5 %Ig 0.4 % High 0.0 - 0.0 %NRBC 0.0 % 0.0 - 0.0 #Neut 6.25 10^3/uL 2.00 - 6.90 #Lymph 0.47 10^3/uL Low 0.60 - 3.40 #Hudson 0.34 10^3/uL 0.00 - 0.90 #Eos 0.16 10^3/uL 0.00 - 0.70 #Baso 0.02 10^3/uL 0.00 - 0.20 #Ig 0.03 10^3/uL 0.00 - 0.10 #NRBC 0.00 10^3/uL 0.00 - 0.00 Manual Diff NOT INDICATED RBC Morph NOT INDICATED Laboratory test finding 04/18/[address] [address] [phone] Troponin T 0.02 NG/ML 0.00 - 0.10 15 CBC W/Automated Diff 04/18/2021 [place] [phone] CBC W/Automated Diff (SEE NOTE) 16 WBC [...] Lymph 5.7 % Low 25.0 - 40.0 Hudson 2.7 % Low 3.0 - 8.0 Eos 2.0 % 0.0 - 7.0 Baso 0.2 % 0.0 - 2.5 %Ig 0.6 % High 0.0 - 0.0 %NRBC 0.0 % 0.0 - 0.0 #Neut 7.88 10^3/uL High 2.00 - 6.90 #Lymph 0.51 10^3/uL Low 0.60 - 3.40 #Hudson 0.24 10^3/uL 0.00 - 0.90 #Eos 0.18 10^3/uL 0.00 - 0.70 #Baso 0.02 10^3/uL 0.00 - 0.20 #Ig 0.05 10^3/uL 0.00 - 0.10 #NRBC 0.00 10^3/uL 0.00 - 0.00 Manual Diff NOT INDICATED RBC Morph NOT INDICATED Laboratory test finding 04/18/2021 [facility] [address] [place] [address] [phone] Troponin T 0.02 NG/ML 0.00 - 0.10 17 Magnesium Serum 1.7 mg/dL 1.7 - 2.2 T4 - Free 1.23 ng/dL 0.93 - 1.70 Comprehensive Metabolic Panel 04/18/2021 [facility] [address] [place] [address] [phone] Comprehensive Metabo (SEE NOTE) 18 Sodium 141 [...] >60 mL/min 19 Laboratory test finding 04/18/2021 [facility] [address] [place] [address] [phone] Pro-BNP 766 pg/mL High 0 - 125 TSH Highly Sensitive 1.68 uIU/mL 0.47 - 5.01 Iron 77 g/dL 42 - 135 Vitamin B12 Serum 390 pg/mL 232 - 1245 Laboratory test finding 04/18/2021 [place] [address] [phone] Troponin T 0.02 NG/ML 0.00 - 0.10 20 Covid-19 04/17/2021 [place] [address] [phone] Covid-19 NOT DETECTED 21 Covid-19 [place] NOT DETECTED 22 CBC W/Automated Diff 04/11/2021 [place] [address] [phone] CBC W/Automated Diff (SEE NOTE) 23 WBC [...] Lymph 11.4 % Low 25.0 - 40.0 Hudson 8.9 % High 3.0 - 8.0 Eos 0.0 % 0.0 - 7.0 Baso 0.1 % 0.0 - 2.5 %Ig 1.0 % High 0.0 - 0.0 %NRBC 0.0 % 0.0 - 0.0 #Neut 5.66 10^3/uL 2.00 - 6.90 #Lymph 0.82 10^3/uL 0.60 - 3.40 #Hudson 0.64 10^3/uL 0.00 - 0.90 #Eos 0.00 10^3/uL 0.00 - 0.70 #Baso 0.01 10^3/uL 0.00 - 0.20 #Ig 0.07 10^3/uL 0.00 - 0.10 #NRBC 0.00 10^3/uL 0.00 - 0.00 Manual Diff NOT INDICATED RBC Morph NOT INDICATED Laboratory test finding 04/11/2021 [facility] [address] [place], [place] [phone] Magnesium Serum 1.5 mg/dL Low 1.7 - 2.2 Comprehensive Metabolic Panel 04/11/2021 [facility] [address] [place], [place] [address] [phone] Comprehensive Metabo (SEE NOTE) 24 Sodium 139 [...] >60 mL/min 25 CBC W/Automated Diff 03/21/[address] [address] [phone] CBC W/Automated Diff (SEE NOTE) 26 WBC [...] Lymph 12.5 % Low 25.0 - 40.0 Hudson 12.8 % High 3.0 - 8.0 Eos 2.2 % 0.0 - 7.0 Baso 1.1 % 0.0 - 2.5 %Ig 0.5 % High 0.0 - 0.0 %NRBC 0.0 % 0.0 - 0.0 #Neut 5.39 10^3/uL 2.00 - 6.90 #Lymph 0.95 10^3/uL 0.60 - 3.40 #Hudson 0.97 10^3/uL High 0.00 - 0.90 #Eos 0.17 10^3/uL 0.00 - 0.70 #Baso 0.08 10^3/uL 0.00 - 0.20 #Ig 0.04 10^3/uL 0.00 - 0.10 #NRBC 0.00 10^3/uL 0.00 - 0.00 Manual Diff NOT INDICATED RBC Morph NOT INDICATED Comprehensive Metabolic Panel 03/21/2021 [facility] [address] [phone] Comprehensive Metabo (SEE NOTE) 27 Sodium 139 [...] >60 mL/min 28 Laboratory test finding 03/21/[address] [address] [phone] Magnesium Serum 1.3 mg/dL Low 1.7 - 2.2 CBC W/Automated Diff 03/16/[address] [address] [phone] CBC W/Automated Diff (SEE NOTE) 29 WBC [...] Lymph 9.7 % Low 25.0 - 40.0 Hudson 13.2 % High 3.0 - 8.0 Eos 0.8 % 0.0 - 7.0 Baso 0.5 % 0.0 - 2.5 %Ig 0.4 % High 0.0 - 0.0 %NRBC 0.0 % 0.0 - 0.0 #Neut 6.94 10^3/uL High 2.00 - 6.90 #Lymph 0.89 10^3/uL 0.60 - 3.40 #Hudson 1.21 10^3/uL High 0.00 - 0.90 #Eos 0.07 10^3/uL 0.00 - 0.70 #Baso 0.05 10^3/uL 0.00 - 0.20 #Ig 0.04 10^3/uL 0.00 - 0.10 #NRBC 0.00 10^3/uL 0.00 - 0.00 Manual Diff SEE BELOW Segs 81 % High 37 - 80 %Lymph 4 % Low 25 - 40 %Hudson 14 % High 3 - 8 %Eos 1 % 0 - 7 RBC Morph SEE BELOW Aniso 1+ Abnormal Normal: None Seen Hypo 1+ Abnormal Normal: None Seen 30 Stomatocytes 1+ Abnormal Normal: None Seen 31 Comprehensive Metabolic Panel 03/16/2021 [facility] [address] [place] [phone] Comprehensive Metabo (SEE NOTE) 32 Sodium 139 [...] >60 mL/min 33 Laboratory test finding 03/16/2021 [facility] [address] [place] [phone] Iron 46 g/dL 42 - 135 T4 - Free 1.54 ng/dL 0.93 - 1.70 TSH Highly Sensitive 1.34 uIU/mL 0.47 - 5.01 Magnesium Serum 03/16/[address] [address] [phone] Magnesium 0.9 mg/dL Critical low 1.7 - 2.2 Call/ Read Back SHIVANI MATA RN By: DESIRAE Date/Time 03.16.21904 Laboratory test finding 03/16/[address] [address] [phone] Vitamin B12 Serum 573 pg/mL 232 - 1245 CBC W/Automated Diff 03/08/[address] [address] [phone] CBC W/Automated Diff (SEE NOTE) 34 WBC [...] Lymph 9.2 % Low 25.0 - 40.0 Hudson 16.8 % High 3.0 - 8.0 Eos 0.5 % 0.0 - 7.0 Baso 0.8 % 0.0 - 2.5 %Ig 1.2 % High 0.0 - 0.0 %NRBC 0.0 % 0.0 - 0.0 #Neut 6.13 10^3/uL 2.00 - 6.90 #Lymph 0.79 10^3/uL 0.60 - 3.40 #Hudson 1.44 10^3/uL High 0.00 - 0.90 #Eos 0.04 10^3/uL 0.00 - 0.70 #Baso 0.07 10^3/uL 0.00 - 0.20 #Ig 0.10 10^3/uL 0.00 - 0.10 #NRBC 0.00 10^3/uL 0.00 - 0.00 Manual Diff SEE BELOW Segs 76 % 37 - 80 %Lymph 12 % Low 25 - 40 %Hudson 10 % High 3 - 8 %Eos 2 % 0 - 7 RBC Morph SEE BELOW Aniso 1+ Abnormal Normal: None Seen Poik 1+ Abnormal Normal: None Seen Hypo 1+ Abnormal Normal: None Seen 35 Ovalocytes 1+ Abnormal Normal: None Seen Stomatocytes 1+ Abnormal Normal: None Seen 36 Laboratory test finding 03/08/2021 [facility] [address] [place], [place] [id number] [phone] Hgba1c 4.8 % 4.4 - 6.1 37 Iron 41 g/dL Low 42 - 135 Comprehensive Metabolic Panel 03/08/2021 [facility] [address] [place], [place] [address]9295 [phone] Comprehensive Metabo (SEE NOTE) 38 Sodium 141 [...] >60 mL/min 39 Laboratory test finding 03/08/[address] [address] [phone] Vitamin B12 Serum 527 pg/mL 232 - 1245 Urinalysis 03/08/[address] [address] [phone] Urinalysis (SEE NOTE) 40 Source R Color yellow Normal: Yellow Clarity hazy Normal: Clear Spec Delta 1.015 1.001 - 1.030 pH 6 5 [...] Normal: None Seen Laboratory test finding 03/08/[address] [address] [phone] Magnesium Serum 1.0 mg/dL Low 1.7 - 2.2 Culture Urine 03/08/[address] [address] [phone] Culture Urine (SEE NOTE) 41 1 COMPLETE [...] Troponin T. 21 First test?: N~Employed in [facility]?: N~Symptomatic as defined by CDC?: [...] mL/min Normal 40 URINALYSIS 41 _CULTURE URINE_ ^$061298 ^^821379 $$812075 ^^325873 $$159508 $$085076 $$683512 $$202891 $$516451 $$730415 $$958039 $$480196 $$761714 $$624675 $$744206 $$955265 $$549639 $$334295 $$229612 $$423195 $$953981 $$920341 $$088647 $$606924 $$891224 $$244262 $$921263 ^^759900 $$627568 $$683589 $$439745 -- Continued on next page -- Patient: JUANITO Daniels Order: [id number] Page 2 Culture: CULTURE URINE Status: Final -- Continued on next page -- Patient: JUANITO Daniels Order: [id number] Page 2 Culture: CULTURE URINE Status: Prelim $$[id number] $$[id number] REPORTED DATE/TIME: 03/13/2021 07:06 Culture: CULTURE URINE Status: Final Urine Culture,Comprehensive: P1 No growth in 36 - 48 hours. Previous result entered on 03/10/2021 23:58 ET No growth after 18-24 hours. P1 [facility]: [id number] [address] [place] [id number] [facility] [address] Transcribing Operator Head : Yonas Rascon MD NPI #: Assistant Construction Superintendent : 03/12/[email or web address] REF 03/13/[email or web address] REF Procedures Date Code Description Status 07/05/2021 77326 EKG Completed 07/05/2021 39161 Office/Outpatient Established Mo d MDM 30-39 Min Completed 06/07/2021 72743 Carotid Duplex Scan Bilat Comple domenico 05/31/2021 83180 Office/Outpatient Established Mo d MDM 30-39 Min Completed 05/31/2021 57994 EKG Completed 04/30/2021 33740 Office/Outpatient Established Mo d MDM 30-39 Min Completed 04/30/2021 68412 EKG Completed 04/20/2021 47333 Observation Discharge Completed 04/19/2021 03411 Office/Outpatient Established Mo d MDM 30-39 Min Completed 04/18/2021 53874 Observation Subsequent Level 2 C ompleted 04/17/2021 26753 Observation Initial 2 Completed 03/21/2021 55448 Office/Outpatient Established Mo d MDM 30-39 Min Completed 03/16/2021 19681 Office/Outpatient Established Mo d MDM 30-39 Min Completed 03/16/2021 39205 EKG Completed 03/15/2021 50150 Office/Outpatient Established Lo w MDM 20-29 Min Completed 03/15/2021 70500 EKG Completed 03/13/2021 78958 Office/Outpatient Established Lo w MDM 20-29 Min Completed 03/09/2021 10930 24 Hour Holter Monitoring Comple domenico 03/08/2021 41986 Office/Outpatient Established Mo d MDM 30-39 Min Completed 03/08/2021 44207 EKG Completed Encounters Type Date Location Provider Dx Diagnosis Office Visit 07/05/2021 2:45p [facility] Osmel Alvarez M.D.,P. C. I48.0 Paroxysmal atrial fibrillation I11.9 Hypertensive heart disease w ithout heart failure I49.49 Other premature depolarizati on Office Visit 05/31/2021 2:15p [facility] Osmel Alvarez M.D.,P. C. I48.0 Paroxysmal atrial fibrillation J43.9 Emphysema, unspecified I11.9 Hypertensive heart disease w ithout heart failure I49.49 Other premature depolarizati on Office Visit 04/30/2021 2:45p [facility] Osmel Alvarez M.D.,P. C. I11.9 Hypertensive heart disease without heart failure I48.0 Paroxysmal atrial fibrillati on I26.99 Other pulmonary embolism wit hout acute cor pulmonale I49.49 Other premature depolarizati on Office Visit 03/21/2021 11:15a [facility] Osmel Alvarez M.D.,[facility]. C. E83.42 Hypomagnesemia J44.9 Chronic obstructive pulmonar y disease, unspecified R00.0 Tachycardia, unspecified Office Visit 03/16/2021 9:45a [facility] Osmel Alvarez M.D.,[facility]. C. R00.0 Tachycardia, unspecified E87.6 Hypokalemia E83.42 Hypomagnesemia I49.49 Other premature depolarizati on Office Visit 03/15/2021 3:00p [facility] Osmel Alvarez M.D.,P. C. I11.9 Hypertensive heart disease without heart failure R00.0 Tachycardia, unspecified R00.2 Palpitations I49.49 Other premature depolarizati on Office Visit 03/13/2021 10:00a [facility] Osmel Alvarez M.D.,[facility]. C. I50.20 Unspecified systolic (congestive) heart failure I11.9 Hypertensive heart disease w ithout heart failure R00.0 Tachycardia, unspecified Office Visit 03/08/2021 10:15a [facility] Osmel Alvarez M.D.,[facility]. C. R00.2 Palpitations R42 [...] M.D.,P.C. 05/31/2021 I11.9 Hypertensive heart disease witho ma heart failure Osmel Alvarez M.D[facility] 05/31/2021 I49.49 Other premature depolarization Sarah Alvarez M.D.,P.C. 04/30/2021 I11.9 Hypertensive heart disease witho ma heart failure Osmel Alvarez M.D[facility]. 04/30/2021 I48.0 [...] M.D.,P.C. 03/15/2021 I11.9 Hypertensive heart disease witho ma heart failure Osmel Alvarez M.D[facility]. 03/15/2021 R00.0 Tachycardia, unspecified Osmel anderson M.D.,[facility]. 03/15/2021 R00.2 Palpitations Evelyn Blake,P.C. 03/15/2021 I49.49 Other premature depolarization Sarah Alvarez M.D[facility] 03/13/2021 I50.20 Unspecified systolic (congestive ) heart failure Osmel Alvarez M.D[facility]. 03/13/2021 I11.9 Hypertensive heart disease witho ma heart failure Osmel Alvarez M.D[facility]. 03/13/2021 R00.0 Tachycardia, unspecified Osmel anderson M.D.,[facility].C. 03/09/2021 R00.2 Palpitations Evelyn Blake,P.C. 03/08/2021 R00.2 Palpitations Evelyn Blake,P.C. 03/08/2021 R42 Dizziness and giddiness Osmel As Leida yun,P.C. 03/08/2021 I95.9 Hypotension, unspecified Osmel anderson M.D.,[facility].C. 03/08/2021 I49.49 Other premature depolarization M bonnie Alvarez M.D.,P.C. Plan of Treatment Future Appointment(s):* 08/08/2021 11:00 am - Osmel Alvarez M.D[facility] at [facility] Referrals Refer to Reason for Referral Status Appt Date Evelyn Jackman MD Please eval. and treat this patient for Afib, She needs an ablation. Thank you. Scheduled 05/21/2021 [address] [facility] [address]
--- OUTSIDE RECORDS SUMMARY | 2021-08-25 12:38 | CCD | Continuity of Care Document ---
Author Author Chantale FRANCIS MD Organization Unknown Address [address] [facility], [address] [place] [address] Phone [phone] Care Team Providers Care Manager Construction Name Role Phone Franca Nicole M.D. AUTM [phone] Marlin Carter M.D. AUTM [phone] Problems Active Problems Provider Date Essential hypertension [...] and thigh Vic Garcia D.O. Onset: 03/01/2021 Impacted elías Francis MD Onset: 06/27/2021 Disorder of pericardium Vic Garcia D.O. Onset: History of malignant neoplasm of bronchus Vic Garcia D.O. Onset: 06/12/2021 Bronchiectasis Vic Garcia D.O. Onset: 06/26/2021 Social History Type Date Description Comments Sex [...] 05/14/2018 Oxygen 2l with exertion- LCW Parish Hnut [place] 05/04/2018 Spiriva Respimat 2.5mcg/Act Aeroso l [...] Tablets 1 by mouth every day 14tabs Kenia.Parish FongO. 01/30/2021 - Itraconazole 100mg Capsules one [...] CPT Code Status Date Vaccine Lot # [id number] Given 09/07/2019 Prevnar 13 85032 Given 08/18/2019 Afluria, Quadrivalent, 0.5ml , [facility]# 51819-228-93 Vital Signs Date Vital Result Comment 06/27/2021 9:02am BP Systolic 100 mmHg BP Diastolic 68 mmHg Heart Rate 81 /min O2 % BldC Oximetry 982 % Height 60 inches 5'0" Weight 173.00 lb BMI (Body Mass Index) 33.8 kg/m2 [place] Body Weight 100 lb Weight 78.473 kg BSA (Body Surface Area) 1.76 m2 06/26/2021 10:53am BP Systolic 102 mmHg BP Diastolic 62 mmHg Heart Rate 82 /min O2 % BldC Oximetry 942 % Height 60 inches 5'0" Weight 172.00 lb BMI (Body Mass Index) 33.6 kg/m2 [place] Body Weight 100 lb Weight 78.019 kg BSA (Body Surface Area) 1.75 m2 Results Test Acquired Date Facility Test Result H/L Range Note Bal Culture And Gram Stain 06/20/2021 [facility] Main Lab [address] [place] [address] [phone] Gram Stain (SEE NOTE) Normal 1 Bal Culture FULL REPORT IN L <SEE NOTE> Normal 2 Sputum Culture And Gram Stain 05/23/2021 [facility] Main Lab [address] [place] [address] 37939 [phone] Gram Stain (SEE NOTE) Normal 3 Sputum Culture FULL REPORT IN L <SEE NOTE> Normal 4 Sputum Culture And Gram Stain 04/30/2021 [facility] Main Lab [address] [place] [address] 31877 [phone] Gram Stain (SEE NOTE) Normal 5 Sputum Culture FULL REPORT IN L <SEE NOTE> Normal 6 Sputum Culture And Gram Stain 03/26/2021 [facility] Main Lab [address] [place] [address] 52003 [phone] Gram Stain (SEE NOTE) Normal 7 Sputum Culture FULL REPORT IN L <SEE NOTE> Normal 8 Sputum Culture And Gram Stain 01/30/2021 [facility] Main Lab [address] [place], [place] [address] [phone] Gram Stain (SEE NOTE) Normal 9 Sputum Culture FULL REPORT IN L <SEE NOTE> Normal 10 FVL/Lebron 01/30/2021 [employer] PDFReport SEE IMAGE FVC-Pred 2.96 L FVC-Pre 0.89 L FVC-%Pred-Pre 30 L FVC-LLN 2.35 L Fev1-Pred 2.32 L Fev1-Pre 0.73 L Fev1-%Pred-Pre 31 L Fev1-LLN 1.80 L Fev6-Pred 2.87 L Fev6-Pre 0.89 L Fev6-%Pred-Pre 31 L Fev6-LLN 2.27 L Yoo4jhk-Svjt 79 % Bpt1bgt-Oem 82 % Chp3xhp-%Pred-Pre 103 % Onw2omv-XLW 69 % Sjl0qrl-Hoxz 97 % Vqk1krp-Ohx 100 % Rce3sta-%Pred-Pre 103 % FEFMax-Pred 5.94 L/E/sec FEFMax-Pre 2.11 L/E/sec FEFMax-%Pred-Pre 35 L/E/sec FEFMax-LLN 4.44 L/E/sec Mzd9914-Lwyk 2.34 L/E/sec Gnq2129-Pho 0.74 L/E/sec Yzx7538-%Pred-Pre 31 L/E/sec Yka3016-WWY 1.25 L/E/sec ExpTime-Pre 5.94 sec Nhp5wxk9-Kfom 82 % Piy4guu3-Qsd 82 % Nff5vqo4-%Pred-Pre 100 % Iqz9uqq9-EES 73 % Sputum Culture And Gram Stain 01/17/2021 [facility] Main Lab [address] [place], [place] [id number] [phone] Gram Stain (SEE NOTE) Normal 11 Sputum [...] LIKE ORGANISM Procedures Date Code Description Status 06/12/2021 10400 Office/Outpatient Established Mo d MDM 30-39 Min Completed 04/17/2021 75153 Office/Outpatient Established Mo d MDM 30-39 Min Completed 03/01/2021 28973 Office/Outpatient Established Mo d MDM 30-39 Min Completed 02/17/2021 21116 Hospital Subsequent Care Level 2 Completed 02/16/2021 79327 Hospital Subsequent Care Level 2 Completed 02/14/2021 02272 Hospital Subsequent Care Level 2 Completed 02/13/2021 04059 Hospital Subsequent Care Level 2 Completed 02/12/2021 11579 Bronchoscopy W/Biopsy Completed 02/11/2021 14787 Hospital Subsequent Care Level 2 Completed 02/10/2021 25341 Hospital Subsequent Care Level 2 Completed 02/09/2021 63569 Hospital Subsequent Care Level 2 Completed 02/08/2021 92296 Hospital Subsequent Care Level 2 Completed 02/06/2021 97568 Hospital Subsequent Care Level 2 Completed 01/30/2021 60999 Office/Outpatient Established Mo d MDM 30-39 Min Completed 01/30/2021 64952 Spirometry Completed 01/18/2021 70867 Office/Outpatient Established Lo w MDM 20-29 Min Completed 01/17/2021 52302 Office/Outpatient Established Mo d MDM 30-39 Min Completed Medical Devices Description No Information Available Encounters Type Date Location Provider Dx Diagnosis Office Visit 06/12/2021 11:[facility]a [facility] Vic dowd, D.O. R91.8 Other nonspecific abnormal finding of tony ng field I31.3 Pericardial effusion (noninf lammatory) Z85.118 Personal history of malignan t neoplasm of bronchus and lung Office Visit 04/17/2021 1:30p [facility] Vic dowd, D.O. R04.2 Hemoptysis Z85.118 Personal history of malignan t neoplasm of bronchus and lung Z86.711 Personal history of pulmonar y embolism M25.552 Pain in left hip Office Visit 03/01/2021 1:30p [facility] Pulmonary/Thoracic Vic Se ars, D.O. R04.2 Hemoptysis Z85.118 Personal history of malignan t neoplasm of bronchus and lung Z86.711 Personal history of pulmonar y embolism M25.552 Pain in left hip Office Visit 02/17/2021 1:23a [facility] Pulmonary/Thoracic Ashley Ventura M.D. R04.2 Hemoptysis R91.8 Other nonspecific abnormal f inding of lung field R60.9 Edema, unspecified Office Visit 02/16/2021 1:23a [facility] Pulmonary/Thoracic Ashley Ventura M.D. R04.2 Hemoptysis C34.90 Malignant neoplasm of unsp p art of unsp bronchus or lung D64.9 Anemia, unspecified R60.9 Edema, unspecified Office Visit 02/14/2021 1:23a [facility] Pulmonary/Thoracic Vic Se ars, D.O. R04.2 Hemoptysis C34.90 Malignant neoplasm of unsp p art of unsp bronchus or lung Office Visit 02/13/2021 1:23a [facility] Pulmonary/Thoracic Vic Se ars, D.O. R04.2 Hemoptysis C34.90 Malignant neoplasm of unsp p art of unsp bronchus or lung Office Visit 02/11/2021 1:23a [facility] Pulmonary/Thoracic Vic Se ars, D.O. R04.2 Hemoptysis R00.0 Tachycardia, unspecified D72.829 Elevated white blood cell co unt, unspecified Office Visit 02/10/2021 1:23a [facility] Pulmonary/Thoracic Vic Se ars, D.O. R04.2 Hemoptysis C34.90 Malignant neoplasm of unsp p art of unsp bronchus or lung D72.829 Elevated white blood cell co unt, unspecified Z86.711 Personal history of pulmonar y embolism Office Visit 02/09/2021 1:23a [facility] Pulmonary/Thoracic Vic Se ars, D.O. R04.2 Hemoptysis C34.90 Malignant neoplasm of unsp p art of unsp bronchus or lung D72.829 Elevated white blood cell co unt, unspecified Z86.711 Personal history of pulmonar y embolism Office Visit 02/08/2021 1:23a [facility] Pulmonary/Thoracic Heather Loaiza MD R04.2 Hemoptysis B96.5 Pseudomonas (mallei) causing diseases classd elswhr Z85.118 Personal history of malignan t neoplasm of bronchus and lung Z86.711 Personal history of pulmonar y embolism Office Visit 02/06/2021 1:23a [facility] Pulmonary/Thoracic Heather Loaiza MD R04.2 Hemoptysis B96.5 Pseudomonas (mallei) causing diseases classd elswhr Z85.118 Personal history of malignan t neoplasm of bronchus and lung Z86.711 Personal history of pulmonar y embolism Office Visit 01/30/2021 1:00p [facility] Pulmonary/Thoracic Vic Se noemí, D.O. J44.9 Chronic obstructive pulmonary disease, u nspecified G47.33 Obstructive sleep apnea (jitendra lt) (pediatric) Office Visit 01/18/2021 11:15a [facility] ENT Practice David Maldonado MD J37.0 Chronic laryngitis Office Visit 01/17/2021 1:00p [facility] Pulmonary/Thoracic Vic Se noemí, D.O. R91.8 Other nonspecific abnormal finding of tony ng field J44.9 Chronic obstructive pulmonar y disease, unspecified G47.33 Obstructive sleep apnea (jitendra lt) (pediatric) Assessments Date Code Description Provider 06/27/2021 H61.21 Impacted cerumen, right ear Teddy Francis MD 06/26/2021 R91.8 Other nonspecific abnormal findi ng of lung field Vic Garcia, D.O. 06/26/2021 Z85.118 Personal history of other malignant neoplasm of bronchus and lung Vic Garcia, D.O. 06/26/2021 Z86.711 Personal history of pulmonary em bolism Vic Garcia D.O. 06/26/2021 J47.9 Bronchiectasis Vic Garcia D.O. 06/12/2021 R91.8 Other nonspecific abnormal findi ng of lung field Vic Garcia D.O. 06/12/2021 I31.3 Pericardial effusion (noninflamm atory) Vic Garcia D.O. 06/12/2021 Z85.118 Personal history of other [...] Sears, D.O . 02/17/2021 R04.2 Hemoptysis Ashley Hunter [...] G47.33 Obstructive sleep apnea (adult) (pediatric) Vic Garcia, D.O. 01/18/2021 J37.0 Chronic laryngitis David pruitt MD 01/17/2021 R91.8 Other nonspecific abnormal findi ng of lung field Vic Garcia D.O. 01/17/2021 J44.9 Chronic obstructive pulmonary di sease, unspecified Vic Sears, D.O. 01/17/2021 G47.33 Obstructive sleep apnea (adult) (pediatric) Vic Garcia D.O. Plan of Treatment Future Appointment(s):* 10/02/2021 2:30 pm - Vic Garcia D.O. at [facility] Pulmonary/Thoracic * 07/04/2021 11:15 am - JENN Rodríguez at [facility] Gastroenterology Practice * 07/25/2021 3:15 pm - Vic Garcia D.O. at [facility] Pulmonary/Thoracic 06/27/2021 - Cesar Francis MD* H61.21 Impacted cerumen, right ear* Comments:* After removal of the cerumen from against the right TM, Chantale had immediate increased hearing. We will repeat an audiogram to evaluate the hearing and follow up with the results. I will be happy to see her back for changes. Functional Status Description No Information Available Mental Status Description No Information Available Referrals Refer to Reason for Referral Status Appt Date Radiology/Procedure 34916 Closed 04/09/2021 David Maldonado M.D. VOICE HOARSENESS Closed 01/19/20 [facility] Medical [facility] ENT [address] [address] [phone]
--- OUTSIDE RECORDS SUMMARY | 2021-08-25 12:38 | CCD | Continuity of Care Document ---
Author Author Chantale DE JESUS Organization Unknown Address [address] [place] [address] [place] [address] Phone [phone] Care Team Providers Care Hot Pipe Gauger Name Role Phone [facility] AUTM [phone] [employer] [employer] AUTM [phone] Problems Description No Information Available Social History Type Date Description Comments Sex Unknown ETOH Use Occasionally consumes wine Tobacco Use Start: Unknown End: Unknown Patient is a former smoker Tobacco Use Start: Unknown The patient has never vaped Smoking Status Reviewed: 11/10/20 The patient has never vaped Allergies, Adverse Reactions, Alerts Active Allergies Criticality Reaction | Severity Comments Date Seafood Unable to assess criticality | Severe Anaphylaxis 11/10/2020 Penicillin V Unable to assess criticality As 11/10/2020 Medications Active Medications SIG Qnty [...] daily Unknown Oxygen 2L Via [place] Unknown Immunizations Description No Information Available Vital Signs [...] Medical Devices Description No Information Available Encounters Description No Information Available Assessments Date Code Description Provider 06/28/2021 Z20.828 Contact with and (mann spected) exposure to other viral communicable diseases Andrea Hart Plan of Treatment No Information Available Functional Status Description No Information Available Mental Status Description No Information Available Referrals Description No Information Available
--- OUTSIDE RECORDS SUMMARY | 2021-08-25 12:38 | CCD | Continuity of Care Document ---
Author Author Chantale PARNELL.OKellen [place] [address] Phone [phone] Care Team Providers Care Inker Machine Name Role Phone Franca Nicole M.D. AUTM [phone] Marlin Carter M.D. AUTM [phone] Problems Active Problems Provider Date Essential hypertension [...] nonspecific abnormal finding of lung field Vic Parnell D.O. Onset: 01/07/2018 Malignant neoplasm of upper lobe, bronchus or lung Vic pruitt D.O. Onset: 01/14/2018 Cough Parish HuntOKellen Onset: 02/19/2018 Obstructive sleep apnea syndrome Vic Parnell D.O. Onset: 03/03/2018 Hypoxemia Parish HuntO. Onset: 04/10/2018 Pulmonary embolism Vic Parnell D.O. Onset: 2018 H/O: pulmonary embolus Geneva Hunt.Jordan. Onset: 09/07/2019 Bleeding from nose Vic Parnell D.O. Onset: 03/13/2020 Arthralgia of the pelvic region and thigh Vic Parnell D.O. Onset: 03/01/2021 History of malignant neoplasm of bronchus Vic Parnell D.O. Onset: 06/12/2021 Disorder of pericardium Vic Parnell D.O. Onset: Social History Type Date Description Comments Sex Unknown ETOH Use 1-2 A Day Tobacco Use Start: Unknown End: Patient is a former smoker hx:1/2ppd since age 16 Smoking Status Reviewed: 06/12/21 Patient is a former smoker hx :1/2ppd since age 16 Allergies, Adverse Reactions, Alerts Active Allergies Criticality Reaction | Severity Comments Date Penicillin Unable to assess criticality 09/01/2017 Seafood Unable to assess criticality 09/15/2017 Medications Active Medications SIG Qnty Indications Ordering Provide r Date Breo Ellipta 200-25mcg/Inh Aerosol inhale one puff by mouth every day 180units Vic Parnell D.O. 09/2020 Xarelto 20mg Tablets Take 1 Tablet By Mouth Every Day 90tabs Vic Parnell D.O. 05/14/2018 Oxygen 2l with exertion- LCW Parish Hunt 05/04/2018 Spiriva Respimat 2.5mcg/Act Aeroso l 2 puffs every day 12gm Vic Parnell D.O. 04/20/2018 Diltiazem HCL ER 180mg Caps ER 24H R 1 tab by mouth every night Unknown Metoprolol Tartrate 25mg Tablets 1/2 tab by mouth every day Unknown Multaq 400mg Tablets 1 tab by mouth twice a day Unknown Claritin 10mg Tablets 1 tab by [...] puffs four times a day as needed Unknown Tylenol 325mg Tablets as need ed Unknown [...] Tablets 1 by mouth every day 14tabs J44.9 Parish HuntO. 01/30/2021 - Itraconazole 100mg Capsules one tab po daily 14caps J44.9 Parish HuntO. 01/30/2021 - Fluconazole 150mg Tablets one tab, repeat once in 2 days if thrush persistent 14tabs Parish HuntO. 01/30/2021 - 01/29/2021 Prednisone 10mg Tablets 4 tabs po qd x5d, 3 tabs po qd x5d, 2 tabs po qd x5d, 1 tab x 5 days, then 1/2 tab po x 5 days 53tabs R05 Parish HuntO. 01/22/2021 - 021 Immunizations CPT Code Status Date Vaccine Lot # [id number] Given 09/07/2019 Prevnar 13 83052 Given 08/18/2019 Afluria, Quadrivalent, 0.5ml , [facility]# [id number] Vital Signs Date Vital Result Comment 06/12/2021 11:19am BP Systolic 110 mmHg BP Diastolic 60 mmHg Heart Rate 91 /min O2 % BldC Oximetry 983 % Height 60 inches 5'0" Weight 172.00 lb BMI (Body Mass Index) 33.6 kg/m2 [place] Body Weight 100 lb Weight 78.019 kg BSA (Body Surface Area) 1.75 m2 04/17/2021 1:17pm BP Systolic 110 mmHg BP Diastolic 60 mmHg Heart Rate 91 /min O2 % BldC Oximetry 992 % Body Temperature 97.3 F Height 60 inches 5'0" Weight 178.00 lb BMI (Body Mass Index) 34.8 kg/m2 [place] Body Weight 100 lb Weight 80.741 kg BSA (Body Surface Area) 1.78 m2 Results Test Acquired Date Facility Test Result H/L Range Note Bal Culture And Gram Stain 06/20/2021 [facility] Main Lab [address] [place] [address] [phone] Gram Stain (SEE NOTE) Normal 1 Bal Culture FULL REPORT IN L <SEE NOTE> Normal 2 Sputum Culture And Gram Stain 05/23/2021 [facility] Main Lab [address] [place] [address] [phone] Gram Stain (SEE NOTE) Normal 3 Sputum Culture FULL REPORT IN L <SEE NOTE> Normal 4 Sputum Culture And Gram Stain 04/30/2021 [facility] Main Lab [address] [place] [address]5427 [phone] Gram Stain (SEE NOTE) Normal 5 Sputum Culture FULL REPORT IN L <SEE NOTE> Normal 6 Sputum Culture And Gram Stain 03/26/2021 [facility] Main Lab [address] [place] [address]95 [phone] Gram Stain (SEE NOTE) Normal 7 Sputum Culture FULL REPORT IN L <SEE NOTE> Normal 8 Sputum Culture And Gram Stain 01/30/2021 [facility] Main Lab [address] [place] [address]83 [phone] Gram Stain (SEE NOTE) Normal 9 Sputum Culture FULL REPORT IN L <SEE NOTE> Normal 10 FVL/[place] 01/30/2021 [employer] PDFReport SEE IMAGE FVC-Pred 2.96 L FVC-Pre 0.89 L FVC-%Pred-Pre 30 L FVC-LLN 2.35 L Fev1-Pred 2.32 L Fev1-Pre 0.73 L Fev1-%Pred-Pre 31 L Fev1-LLN 1.80 L Fev6-Pred 2.87 L Fev6-Pre 0.89 L Fev6-%Pred-Pre 31 L Fev6-LLN 2.27 L Zao5ayx-Jyyr 79 % Lwy2clc-Kdj 82 % Xyn9ohz-%Pred-Pre 103 % Uku5ohg-OIO 69 % Nop4htc-Thdg 97 % Bzk0zpj-Qby 100 % Kpi7grl-%Pred-Pre 103 % FEFMax-Pred 5.94 L/E/sec FEFMax-Pre 2.11 L/E/sec FEFMax-%Pred-Pre 35 L/E/sec FEFMax-LLN 4.44 L/E/sec Gzv7122-Dqqk 2.34 L/E/sec Aet2027-Mzl 0.74 L/E/sec Bbu1359-%Pred-Pre 31 L/E/sec Dqy5607-TRI 1.25 L/E/sec ExpTime-Pre 5.94 sec Tev3bww4-Jsmz 82 % Sqn5nwi0-Izf 82 % Lcd7gzh9-%Pred-Pre 100 % Hhn4dcd2-HLH 73 % Sputum Culture And Gram Stain 01/17/2021 [facility] Main Lab [address] [place] [address]131 [phone] Gram Stain (SEE NOTE) Normal 11 Sputum [...] ORGANISM Procedures Date Code Description Status 06/12/2021 85527 Office/Outpatient Established Mo d MDM 30-39 Min Completed 04/17/2021 74889 Office/Outpatient Established Mo d MDM 30-39 Min Completed 03/01/2021 75255 Office/Outpatient Established Mo d MDM 30-39 Min Completed 02/17/2021 88704 Hospital Subsequent Care Level 2 Completed 02/16/2021 20356 Hospital Subsequent Care Level 2 Completed 02/14/2021 86229 Hospital Subsequent Care Level 2 Completed 02/13/2021 43200 Hospital Subsequent Care Level 2 Completed 02/12/2021 92639 Bronchoscopy W/Biopsy Completed 02/11/2021 93258 Hospital Subsequent Care Level 2 Completed 02/10/2021 79113 Hospital Subsequent Care Level 2 Completed 02/09/2021 94188 Hospital Subsequent Care Level 2 Completed 02/08/2021 27573 Hospital Subsequent Care Level 2 Completed 02/06/2021 95773 Hospital Subsequent Care Level 2 Completed 01/30/2021 90110 Office/Outpatient Established Mo d MDM 30-39 Min Completed 01/30/2021 57894 Spirometry Completed 01/18/2021 20712 Office/Outpatient Established Lo w MDM 20-29 Min Completed 01/17/2021 38212 Office/Outpatient Established Mo d MDM 30-39 Min Completed Medical Devices Description No Information Available Encounters Type Date Location Provider Dx Diagnosis Office Visit 06/12/2021 11:30a [facility] Vic Se dowd, D.O. R91.8 Other nonspecific abnormal finding of tony ng field I31.3 Pericardial effusion (noninf lammatory) Z85.118 Personal history of malignan t neoplasm of bronchus and lung Office Visit 04/17/2021 1:30p [facility] Vicjesus dowd, D.O. R04.2 Hemoptysis Z85.118 Personal history of malignan t neoplasm of bronchus and lung Z86.711 Personal history of pulmonar y embolism M25.552 Pain in left hip Office Visit 03/01/2021 1:30p [facility] Vic dowd, D.O. R04.2 Hemoptysis Z85.118 Personal history of malignan t neoplasm of bronchus and lung Z86.711 Personal history of pulmonar y embolism M25.552 Pain in left hip Office Visit 02/17/2021 1:23a [facility] Ashley Ventura M.D. R04.2 Hemoptysis R91.8 Other nonspecific abnormal f inding of lung field R60.9 Edema, unspecified Office Visit 02/16/2021 1:23a [facility] Ashley Ventura M.D. R04.2 Hemoptysis C34.90 Malignant neoplasm of unsp p art of unsp bronchus or lung D64.9 Anemia, unspecified R60.9 Edema, unspecified Office Visit 02/14/2021 1:23a [facility] Vic Se ars, D.O. R04.2 Hemoptysis C34.90 Malignant neoplasm of unsp p art of unsp bronchus or lung Office Visit 02/13/2021 1:23a [facility] Vic Se ars, D.O. R04.2 Hemoptysis C34.90 Malignant neoplasm of unsp p art of unsp bronchus or lung Office Visit 02/11/2021 1:23a [facility] Vic Se ars, D.O. R04.2 Hemoptysis R00.0 Tachycardia, unspecified D72.829 Elevated white blood cell co unt, unspecified Office Visit 02/10/2021 1:23a [facility] Vic Se ars, D.O. R04.2 Hemoptysis C34.90 Malignant neoplasm of unsp p art of unsp bronchus or lung D72.829 Elevated white blood cell co unt, unspecified Z86.711 Personal history of pulmonar y embolism Office Visit 02/09/2021 1:23a [facility] Vic Se ars, D.O. R04.2 Hemoptysis C34.90 Malignant neoplasm of unsp p art of unsp bronchus or lung D72.829 Elevated white blood cell co unt, unspecified Z86.711 Personal history of pulmonar y embolism Office Visit 02/08/2021 1:23a [facility] Heather Loaiza MD R04.2 Hemoptysis B96.5 Pseudomonas (mallei) causing diseases classd elswhr Z85.118 Personal history of malignan t neoplasm of bronchus and lung Z86.711 Personal history of pulmonar y embolism Office Visit 02/06/2021 1:23a [facility] Heather Loaiza MD R04.2 Hemoptysis B96.5 Pseudomonas (mallei) causing diseases classd elswhr Z85.118 Personal history of malignan t neoplasm of bronchus and lung Z86.711 Personal history of pulmonar y embolism Office Visit 01/30/2021 1:00p [facility] Vic Se noemí D.OKellen J44.9 Chronic obstructive pulmonary disease, u nspecified G47.33 Obstructive sleep apnea (jitendra lt) (pediatric) Office Visit 01/18/2021 11:15a [facility] E[facility] David Maldonado MD J37.0 Chronic laryngitis Office Visit 01/17/2021 1:00p [facility] Vic Se ars, D.O. R91.8 Other nonspecific abnormal finding of tony ng field J44.9 Chronic obstructive pulmonar y disease, unspecified G47.33 Obstructive sleep apnea (jitendra lt) (pediatric) Assessments Date Code Description Provider 06/12/2021 R91.8 Other nonspecific abnormal findi ng [...] Vic Sears, D.O . 02/17/2021 R04.2 Hemoptysis DaleAshley M.D. 02/17/2021 R91.8 Other nonspecific abnormal findi [...] sleep apnea (adult) (pediatric) Vic Sears, D.O. Plan of Treatment Future Appointment(s):* 06/27/2021 9:15 am - Cesar Francis MD at [facility] * 07/04/2021 11:15 am - JENN Rodríguez at [facility] Gastroenterology [facility] * 07/25/2021 3:15 pm - Vic Parnell D.O. at [facility] Pulmonary/Thoracic 06/12/2021 - Vic Parnell D.O.* R91.8 Other nonspecific abnormal finding of lung field * I31.3 Pericardial effusion (noninflammatory) * Z85.118 Personal history of other malignant neoplasm of bronchus and lung * * New Orders:* Bronchoscopy in [place], Scheduled: 06/20/21 * Follow up:* Follow up in office after procedure. Nebulize twice a day. Functional Status Description No Information Available Mental Status Description No Information Available Referrals Refer to Dr Reason for Referral Status Appt Date Radiology/Procedure 36721 Closed 04/09/2021 David Maldonado M.D. VOICE HOARSENESS Closed 01/19/20 [facility] ENT [address] [address] [phone]
--- OUTSIDE RECORDS SUMMARY | 2021-08-25 12:38 | CCD | Continuity of Care Document ---
Author Author Chantale BLAKE P. C. Organization Unknown Address [address] [place] [id number] Phone [phone] Care Team Providers Care Shirt Bander Name Role Phone Evelyn Jackman MD AUT Unavailable OSMEL ALVAREZ M.D. P.CKellen RUIZ [phone] Social History Type Date Description Comments Sex [...] Tablets 1/2 tab twice a day 180tabs Oseml Alvarez [facility] 000 History Medications Corlanor [...] H/L Range Note Comprehensive Metabolic Panel 04/20/2021 [facility] [address] [id number] [phone] Comprehensive Metabo (SEE NOTE) 1 Sodium 138 [...] >60 mL/min 2 Laboratory test finding 04/20/[address] [address] [phone] Magnesium Serum 1.7 mg/dL 1.7 - 2.2 3 CBC W/Automated Diff 04/20/2021 [place] [id number] [phone] CBC W/Automated Diff (SEE NOTE) 4 WBC [...] Lymph 4.9 % Low 25.0 - 40.0 Wilkinson 10.8 % High 3.0 - 8.0 Eos 2.5 % 0.0 - 7.0 Baso 0.2 % 0.0 - 2.5 %Ig 1.0 % High 0.0 - 0.0 %NRBC 0.0 % 0.0 - 0.0 #Neut 4.77 10^3/uL 2.00 - 6.90 #Lymph 0.29 10^3/uL Low 0.60 - 3.40 #Wilkinson 0.64 10^3/uL 0.00 - 0.90 #Eos 0.15 10^3/uL 0.00 - 0.70 #Baso 0.01 10^3/uL 0.00 - 0.20 #Ig 0.06 10^3/uL 0.00 - 0.10 #NRBC 0.00 10^3/uL 0.00 - 0.00 Manual Diff SEE BELOW Segs 87 % High 37 - 80 %Lymph 2 % Low 25 - 40 %Wilkinson 9 % High 3 - 8 %Eos 2 % 0 - 7 RBC Morph SEE BELOW Aniso 1+ Abnormal Normal: None Seen Macro 1+ Abnormal Normal: None Seen Poik 1+ Abnormal Normal: None Seen 5 PLT Est NORMAL Normal: Normal 6 CBC W/Automated Diff 04/19/[address] [address] [phone] CBC W/Automated Diff (SEE NOTE) 7 WBC [...] Lymph 6.5 % Low 25.0 - 40.0 Wilkinson 4.7 % 3.0 - 8.0 Eos 2.2 % 0.0 - 7.0 Baso 0.3 % 0.0 - 2.5 %Ig 0.4 % High 0.0 - 0.0 %NRBC 0.0 % 0.0 - 0.0 #Neut 6.25 10^3/uL 2.00 - 6.90 #Lymph 0.47 10^3/uL Low 0.60 - 3.40 #Wilkinson 0.34 10^3/uL 0.00 - 0.90 #Eos 0.16 10^3/uL 0.00 - 0.70 #Baso 0.02 10^3/uL 0.00 - 0.20 #Ig 0.03 10^3/uL 0.00 - 0.10 #NRBC 0.00 10^3/uL 0.00 - 0.00 Manual Diff NOT INDICATED RBC Morph NOT INDICATED Comprehensive Metabolic Panel 04/19/2021 [facility] [address] [place] [address] [phone] Comprehensive Metabo (SEE NOTE) 8 Sodium 136 [...] >60 mL/min 9 Laboratory test finding 04/19/2021 [facility] [address] [place] [address] [phone] Magnesium Serum 1.5 mg/dL Low 1.7 - 2.2 Pro-BNP 692 pg/mL High 0 - 125 Iron 45 g/dL 42 - 135 Laboratory test finding 04/18/2021 [facility] [address] [place] [address] [phone] Troponin T 0.02 NG/ML 0.00 - 0.10 10 CBC W/Automated Diff 04/18/[address] [address] [phone] CBC W/Automated Diff (SEE NOTE) 11 WBC [...] Lymph 5.7 % Low 25.0 - 40.0 Wilkinson 2.7 % Low 3.0 - 8.0 Eos 2.0 % 0.0 - 7.0 Baso 0.2 % 0.0 - 2.5 %Ig 0.6 % High 0.0 - 0.0 %NRBC 0.0 % 0.0 - 0.0 #Neut 7.88 10^3/uL High 2.00 - 6.90 #Lymph 0.51 10^3/uL Low 0.60 - 3.40 #Wilkinson 0.24 10^3/uL 0.00 - 0.90 #Eos 0.18 10^3/uL 0.00 - 0.70 #Baso 0.02 10^3/uL 0.00 - 0.20 #Ig 0.05 10^3/uL 0.00 - 0.10 #NRBC 0.00 10^3/uL 0.00 - 0.00 Manual Diff NOT INDICATED RBC Morph NOT INDICATED Laboratory test finding 04/18/2021 [facility] [address] [place] [address] [phone] Troponin T 0.02 NG/ML 0.00 - 0.10 12 Magnesium Serum 1.7 mg/dL 1.7 - 2.2 T4 - Free 1.23 ng/dL 0.93 - 1.70 Comprehensive Metabolic Panel 04/18/2021 [facility] [address] [place] [phone] Comprehensive Metabo (SEE NOTE) 13 Sodium 141 [...] >60 mL/min 14 Laboratory test finding 04/18/2021 [facility] l [address] [place] [phone] Pro-BNP 766 pg/mL High 0 - 125 TSH Highly Sensitive 1.68 uIU/mL 0.47 - 5.01 Iron 77 g/dL 42 - 135 Vitamin B12 Serum 390 pg/mL 232 - 1245 Laboratory test finding 04/18/[address] [address] [phone] Troponin T 0.02 NG/ML 0.00 - 0.10 15 Covid-19 04/17/[address] [address] [phone] Covid-19 NOT DETECTED 16 Covid-19 Reenter NOT DETECTED 17 Laboratory test finding 04/11/2021 [facility] [address] [place] [address] [phone] Magnesium Serum 1.5 mg/dL Low 1.7 - 2.2 CBC W/Automated Diff 04/11/[address] [address] [phone] CBC W/Automated Diff (SEE NOTE) 18 WBC [...] Lymph 11.4 % Low 25.0 - 40.0 Wilkinson 8.9 % High 3.0 - 8.0 Eos 0.0 % 0.0 - 7.0 Baso 0.1 % 0.0 - 2.5 %Ig 1.0 % High 0.0 - 0.0 %NRBC 0.0 % 0.0 - 0.0 #Neut 5.66 10^3/uL 2.00 - 6.90 #Lymph 0.82 10^3/uL 0.60 - 3.40 #Wilkinson 0.64 10^3/uL 0.00 - 0.90 #Eos 0.00 10^3/uL 0.00 - 0.70 #Baso 0.01 10^3/uL 0.00 - 0.20 #Ig 0.07 10^3/uL 0.00 - 0.10 #NRBC 0.00 10^3/uL 0.00 - 0.00 Manual Diff NOT INDICATED RBC Morph NOT INDICATED Comprehensive Metabolic Panel 04/11/2021 [facility] [address] [place] [address] [phone] Comprehensive Metabo (SEE NOTE) 19 Sodium 139 [...] >60 mL/min 20 CBC W/Automated Diff 03/21/[address] [phone] CBC W/Automated Diff (SEE NOTE) 21 WBC [...] Lymph 12.5 % Low 25.0 - 40.0 Wilkinson 12.8 % High 3.0 - 8.0 Eos 2.2 % 0.0 - 7.0 Baso 1.1 % 0.0 - 2.5 %Ig 0.5 % High 0.0 - 0.0 %NRBC 0.0 % 0.0 - 0.0 #Neut 5.39 10^3/uL 2.00 - 6.90 #Lymph 0.95 10^3/uL 0.60 - 3.40 #Wilkinson 0.97 10^3/uL High 0.00 - 0.90 #Eos 0.17 10^3/uL 0.00 - 0.70 #Baso 0.08 10^3/uL 0.00 - 0.20 #Ig 0.04 10^3/uL 0.00 - 0.10 #NRBC 0.00 10^3/uL 0.00 - 0.00 Manual Diff NOT INDICATED RBC Morph NOT INDICATED Comprehensive Metabolic Panel 03/21/2021 [facility] [address] [place] [address] [phone] Comprehensive Metabo (SEE NOTE) 22 Sodium 139 [...] >60 mL/min 23 Laboratory test finding 03/21/2021 [facility] [address] [place] [address] [phone] Magnesium Serum 1.3 mg/dL Low 1.7 - 2.2 Magnesium Serum 03/16/[address] [address] [phone] Magnesium 0.9 mg/dL Critical low 1.7 - 2.2 Call/ Read Back SHIVANI MATA RN By: DESIRAE Date/Time 03.16.21904 Laboratory test finding 03/16/2021 [facility] [address] [place] [address] [phone] Vitamin B12 Serum 573 pg/mL 232 - 1245 Laboratory test finding 03/16/2021 [facility] [address] [place] [address] [phone] Iron 46 g/dL 42 - 135 T4 - Free 1.54 ng/dL 0.93 - 1.70 TSH Highly Sensitive 1.34 uIU/mL 0.47 - 5.01 Comprehensive Metabolic Panel 03/16/2021 [facility] [address] [place] [address] [phone] Comprehensive Metabo (SEE NOTE) 24 Sodium 139 [...] >60 mL/min 25 CBC W/Automated Diff 03/16/2021 [place] [address] [phone] CBC W/Automated Diff (SEE NOTE) 26 WBC [...] Lymph 9.7 % Low 25.0 - 40.0 Wilkinson 13.2 % High 3.0 - 8.0 Eos 0.8 % 0.0 - 7.0 Baso 0.5 % 0.0 - 2.5 %Ig 0.4 % High 0.0 - 0.0 %NRBC 0.0 % 0.0 - 0.0 #Neut 6.94 10^3/uL High 2.00 - 6.90 #Lymph 0.89 10^3/uL 0.60 - 3.40 #Wilkinson 1.21 10^3/uL High 0.00 - 0.90 #Eos 0.07 10^3/uL 0.00 - 0.70 #Baso 0.05 10^3/uL 0.00 - 0.20 #Ig 0.04 10^3/uL 0.00 - 0.10 #NRBC 0.00 10^3/uL 0.00 - 0.00 Manual Diff SEE BELOW Segs 81 % High 37 - 80 %Lymph 4 % Low 25 - 40 %Wilkinson 14 % High 3 - 8 %Eos 1 % 0 - 7 RBC Morph SEE BELOW Aniso 1+ Abnormal Normal: None Seen Hypo 1+ Abnormal Normal: None Seen 27 Stomatocytes 1+ Abnormal Normal: None Seen 28 CBC W/Automated Diff 03/08/[address] [address] [phone] CBC W/Automated Diff (SEE NOTE) 29 WBC [...] Lymph 9.2 % Low 25.0 - 40.0 Wilkinson 16.8 % High 3.0 - 8.0 Eos 0.5 % 0.0 - 7.0 Baso 0.8 % 0.0 - 2.5 %Ig 1.2 % High 0.0 - 0.0 %NRBC 0.0 % 0.0 - 0.0 #Neut 6.13 10^3/uL 2.00 - 6.90 #Lymph 0.79 10^3/uL 0.60 - 3.40 #Wilkinson 1.44 10^3/uL High 0.00 - 0.90 #Eos 0.04 10^3/uL 0.00 - 0.70 #Baso 0.07 10^3/uL 0.00 - 0.20 #Ig 0.10 10^3/uL 0.00 - 0.10 #NRBC 0.00 10^3/uL 0.00 - 0.00 Manual Diff SEE BELOW Segs 76 % 37 - 80 %Lymph 12 % Low 25 - 40 %Wilkinson 10 % High 3 - 8 %Eos 2 % 0 - 7 RBC Morph SEE BELOW Aniso 1+ Abnormal Normal: None Seen Poik 1+ Abnormal Normal: None Seen Hypo 1+ Abnormal Normal: None Seen 30 Ovalocytes 1+ Abnormal Normal: None Seen Stomatocytes 1+ Abnormal Normal: None Seen 31 Laboratory test finding 03/08/2021 [facility] [address] [place], [place] [id number] [phone] Hgba1c 4.8 % 4.4 - 6.1 32 Iron 41 g/dL Low 42 - 135 Comprehensive Metabolic Panel 03/08/2021 [facility] [address] [place], [place] [phone] Comprehensive Metabo (SEE NOTE) 33 Sodium 141 [...] >60 mL/min 34 Laboratory test finding 03/08/[address] [address] [phone] Vitamin B12 Serum 527 pg/mL 232 - 1245 Urinalysis 03/08/[address] [address] [phone] Urinalysis (SEE NOTE) 35 Source R Color yellow Normal: Yellow Clarity hazy Normal: Clear Spec [place] 1.015 1.001 - 1.030 pH 6 5 [...] Normal: None Seen Laboratory test finding 03/08/[address] [address] [phone] Magnesium Serum 1.0 mg/dL Low 1.7 - 2.2 Culture Urine 03/08/[address] [address] [phone] Culture Urine (SEE NOTE) 36 1 COMPREHENSIVE [...] 16 First test?: N~Employed in [facility]?: N~Symptomatic as defined by CDC?: N~Hospitalized?: [...] mL/min Normal 35 URINALYSIS 36 _CULTURE URINE_ ^$[id number] ^^816999 $$924641 ^^783708 $$253843 $$762038 $$850188 $$182646 $$129412 $$903794 $$933418 $$832057 $$960545 $$738642 $$914315 $$279949 $$082812 $$863508 $$631719 $$702186 $$949883 $$912359 $$779824 $$069989 $$894315 $$757323 $$381098 ^^654143 $$324967 $$978175 $$193759 -- Continued on next page -- Patient: JUANITO Daniels Order: [id number] Page 2 Culture: CULTURE URINE Status: Final -- Continued on next page -- Patient: JUANITO Daniels Order: [id number] Page 2 Culture: CULTURE URINE Status: Prelim $$[id number] $$[id number] REPORTED DATE/TIME: 03/13/2021 07:06 Culture: CULTURE URINE Status: Final Urine Culture,Comprehensive: P1 No growth in 36 - 48 hours. Previous result entered on 03/10/2021 23:58 ET No growth after 18-24 hours. P1 [facility]: [id number] [address] [place] [address] [id number] [facility] [phone] Shot Lighter : Yonas Rascon MD NPI #: Credit Balance Specialist : 03/12/[email or web address] REF 03/13/[email or web address].XMT.[email or web address] REF Procedures Date Code Description Status 06/07/2021 17739 Carotid Duplex Scan Bilat Comple domenico 05/31/2021 04275 Office/Outpatient Established Mo d MDM 30-39 Min Completed 05/31/2021 24811 EKG Completed 04/30/2021 10590 Office/Outpatient Established Mo d MDM 30-39 Min Completed 04/30/2021 06471 EKG Completed 04/20/2021 91859 Observation Discharge Completed 04/19/2021 45470 Office/Outpatient Established Mo d MDM 30-39 Min Completed 04/18/2021 55057 Observation Subsequent Level 2 C ompleted 04/17/2021 62226 Observation Initial 2 Completed 03/21/2021 69452 Office/Outpatient Established Mo d MDM 30-39 Min Completed 03/16/2021 67328 Office/Outpatient Established Mo d MDM 30-39 Min Completed 03/16/2021 00870 EKG Completed 03/15/2021 83318 Office/Outpatient Established Lo w MDM 20-29 Min Completed 03/15/2021 22186 EKG Completed 03/13/2021 28148 Office/Outpatient Established Lo w MDM 20-29 Min Completed 03/09/2021 73123 24 Hour Holter Monitoring Comple domenico 03/08/2021 70559 Office/Outpatient Established Mo d MDM 30-39 Min Completed 03/08/2021 06371 EKG Completed 01/29/2021 85487 Office/Outpatient Established Mo d MDM 30-39 Min Completed Encounters Type Date Location Provider Dx Diagnosis Office Visit 05/31/2021 2:15p [facility] Osmel Alvarez [facility] I48.0 Paroxysmal atrial fibrillation J43.9 Emphysema, unspecified I11.9 Hypertensive heart disease w ithout heart failure I49.49 Other premature depolarizati on Office Visit 04/30/2021 2:45p [facility] Osmel Alvarez [facility] I11.9 Hypertensive heart disease without heart failure I48.0 Paroxysmal atrial fibrillati on I26.99 Other pulmonary embolism wit hout acute cor pulmonale I49.49 Other premature depolarizati on Office Visit 03/21/2021 11:15a [facility] Osmel Alvarez [facility] E83.42 Hypomagnesemia J44.9 Chronic obstructive pulmonar y disease, unspecified R00.0 Tachycardia, unspecified Office Visit 03/16/2021 9:45a [facility] Osmel Alvarez [facility] R00.0 Tachycardia, unspecified E87.6 Hypokalemia E83.42 Hypomagnesemia I49.49 Other premature depolarizati on Office Visit 03/15/2021 3:00p [facility] Osmel Alvarez M[facility] I11.9 Hypertensive heart disease without heart failure R00.0 Tachycardia, unspecified R00.2 Palpitations I49.49 Other premature depolarizati on Office Visit 03/13/2021 10:00a [facility] Osmel Alvarez [facility] I50.20 Unspecified systolic (congestive) heart failure I11.9 Hypertensive heart disease w [facility] heart failure R00.0 Tachycardia, unspecified Office Visit 03/08/2021 10:15a [facility] Osmel Alvarez M[facility] R00.2 Palpitations R42 Dizziness and giddiness I95.9 Hypotension, unspecified I49.49 Other premature depolarizati on Office Visit 01/29/2021 2:45p [facility] Osmel Alvarez M[facility] 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 06/07/2021 R42 Dizziness and giddiness Osmel yun M.D[facility] 05/31/2021 I48.0 Paroxysmal atrial fibrillation Sarah Alvarez M.D[facility] 05/31/2021 J43.9 Emphysema, unspecified Osmel white M.D[facility] 05/31/2021 I11.9 Hypertensive heart disease witho nh heart failure Osmel Alvarez M[facility] 05/31/2021 I49.49 Other premature depolarization Sarah Alvarez M.D[facility] 04/30/2021 I11.9 Hypertensive heart disease witho nh heart failure Osmel Alvarez M.D[facility] 04/30/2021 [...] P.C. 03/15/2021 I11.9 Hypertensive heart disease witho nh heart failure Osmel Alvarez M.D[facility] 03/15/2021 R00.0 Tachycardia, unspecified Osmel anderson M.D[facility] 03/15/2021 R00.2 Palpitations Evelyn Blake, P.C. 03/15/2021 I49.49 Other premature depolarization Sarah Alvarez M.D[facility] 03/13/2021 I50.20 Unspecified systolic (congestive ) heart failure Osmel Alvarez M.D[facility] 03/13/2021 I11.9 Hypertensive heart disease witho nh heart failure Osmel Alvarez M.D[facility] 03/13/2021 R00.0 Tachycardia, unspecified Osmel anderson M.D[facility] 03/09/2021 R00.2 Palpitations Evelyn Blake, P.C. 03/08/2021 R00.2 Palpitations Evelyn Blake, P.C. 03/08/2021 R42 Dizziness and giddiness Osmel As Leida yun, P.C. 03/08/2021 I95.9 Hypotension, unspecified Osmel anderson M.D[facility] 03/08/2021 I49.49 Other premature depolarization Sarah Alvarez M.D[facility] 01/29/2021 I11.9 Hypertensive heart disease witho nh heart failure Osmel Alvarez [facility] 01/29/2021 I50.20 Unspecified systolic (congestive ) heart failure Osmel [facility]varez [facility] 01/29/2021 D02.22 Carcinoma in situ of left bronch us and lung Osmel [facility]varez [facility] Referrals Refer to Reason for Referral Status Appt Date Evelyn Jackman MD Please eval. and treat this patient for Afib, She needs an ablation. Thank you. Scheduled 05/21/[address] [facility] [address]
--- OUTSIDE RECORDS SUMMARY | 2021-08-25 12:38 | CCD | Continuity of Care Document ---
Author Author Chantale DE JESUS Organization Unknown Address [address] [place] [address] [place] [address] Phone [phone] Care Team Providers Care Tile Setter Supervisor Name Role Phone [facility] AUTM [phone] [employer] AUTM [phone] Problems Description No Information Available Social History [...] Available Encounters Description No Information Available Assessments Description No Information Available Plan of Treatment No Information Available Functional Status Description No Information Available Mental Status Description No Information Available Referrals Description No Information Available
--- OUTSIDE RECORDS SUMMARY | 2021-08-25 12:38 | CCD | Continuity of Care Document ---
Author Author Chantale PARNELL.OKellen [place] [address] Phone [phone] Care Team Providers Care Group Director Experience Name Role Phone Franca Nicole M.D. AUTM [phone] Marlin Carter M.D. AUTM [phone] Problems Active Problems Provider Date Essential hypertension [...] neoplasm of upper lobe, bronchus or lung Parish StaplesOKellen Onset: 01/14/2018 Cough Parish HuntOKellen Onset: 02/19/2018 Obstructive sleep apnea syndrome Vic Parnell D.O. Onset: 03/03/2018 Hypoxemia Parish HuntO. Onset: 04/10/2018 Pulmonary embolism Vic Parnell D.O. Onset: 2018 H/O: pulmonary embolus Sharon Hunt.Jordan. Onset: 09/07/2019 Bleeding from nose Vic Parnell D.O. Onset: 03/13/2020 Arthralgia of the pelvic region and thigh Vic Parnell D.O. Onset: 03/01/2021 Hearing loss Cesar Francis MD Onset: 06/27/2021 Disorder of pericardium Vic Parnell D.O. Onset: History of malignant neoplasm of bronchus Vic Parnell D.O. Onset: 06/12/2021 Bronchiectasis Vic Pranell D.O. Onset: 06/26/2021 Impacted cerumen Cesar Francis [...] daily - and as needed 360ml Vic Parnell D.O. 06/26/2021 Breo Ellipta 200-25mcg/Inh Aerosol inhale one puff by mouth every day 180units Parish HuntOKellen 09/2020 Xarelto 20mg Tablets Take 1 Tablet By Mouth Every Day 90tabs Vic Parnell D.O. 05/14/2018 Oxygen 2l with exertion- LCW Parish Hunt 05/04/2018 Spiriva Respimat 2.5mcg/Act Aeroso l 2 puffs every day 12gm Vic Parnell D.O. 04/20/2018 Claritin 10mg Tablets 1 tab [...] po x 5 days 53tabs R05 Vic Parnell D.O. 01/22/2021 - 021 Immunizations CPT Code Status Date Vaccine Lot # [id number] Given 09/07/2019 Prevnar 13 87584 Given 08/18/2019 Afluria, Quadrivalent, 0.5ml , [facility]# 90500-558-29 Vital Signs Date Vital Result Comment 06/27/2021 9:02am BP Systolic 100 mmHg BP Diastolic 68 mmHg Heart Rate 81 /min O2 % BldC Oximetry 982 % Height 60 inches 5'0" Weight 173.00 lb BMI (Body Mass Index) 33.8 kg/m2 [place] Body Weight 100 lb Weight 78.473 kg BSA (Body Surface Area) 1.76 m2 06/26/2021 10:53am BP Systolic 102 mmHg BP Diastolic 62 mmHg Heart Rate 82 /min O2 % BldC Oximetry 942 % Height 60 inches 5'0" Weight 172.00 lb BMI (Body Mass Index) 33.6 kg/m2 [place]on Body Weight 100 lb Weight 78.019 kg BSA (Body Surface Area) 1.75 m2 Results Test Acquired Date Facility Test Result H/L Range Note Bal Culture And Gram Stain 06/20/2021 [facility] [address] [place] [address] [phone] Gram Stain (SEE NOTE) Normal 1 Bal Culture FULL REPORT IN L <SEE NOTE> Normal 2 Sputum Culture And Gram Stain 05/23/2021 [facility] [address] [place] [address] [phone] Gram Stain (SEE NOTE) Normal 3 Sputum Culture FULL REPORT IN L <SEE NOTE> Normal 4 Sputum Culture And Gram Stain 04/30/2021 [facility] [address] [place] [address] [phone] Gram Stain (SEE NOTE) Normal 5 Sputum Culture FULL REPORT IN L <SEE NOTE> Normal 6 Sputum Culture And Gram Stain 03/26/2021 [facility] [address] [place] [address] [phone] Gram Stain (SEE NOTE) Normal 7 Sputum Culture FULL REPORT IN L <SEE NOTE> Normal 8 Sputum Culture And Gram Stain 01/30/2021 [facility] [address] [place] [address] [phone] Gram Stain (SEE NOTE) Normal 9 Sputum Culture FULL REPORT IN L <SEE NOTE> Normal 10 FVL/Lebron 01/30/2021 [employer] PD[facility] SEE IMAGE FVC-Pred 2.96 L FVC-Pre 0.89 L FVC-%Pred-Pre 30 L FVC-LLN 2.35 L Fev1-Pred 2.32 L Fev1-Pre 0.73 L Fev1-%Pred-Pre 31 L Fev1-LLN 1.80 L Fev6-Pred 2.87 L Fev6-Pre 0.89 L Fev6-%Pred-Pre 31 L Fev6-LLN 2.27 L Hen0zga-Irqv 79 % Lok3hew-Wdz 82 % Vxn5bfr-%Pred-Pre 103 % Wss8luc-AGB 69 % Gip6vmu-Gtyp 97 % Eiw0hmv-Gvs 100 % Gpf4yvl-%Pred-Pre 103 % FEFMax-Pred 5.94 L/E/sec FEFMax-Pre 2.11 L/E/sec FEFMax-%Pred-Pre 35 L/E/sec FEFMax-LLN 4.44 L/E/sec Tci9173-Xasu 2.34 L/E/sec Bve2697-Qrx 0.74 L/E/sec Xlv0932-%Pred-Pre 31 L/E/sec Udx0194-TTV 1.25 L/E/sec ExpTime-Pre 5.94 sec Ghe7cst4-Vipj 82 % Fnf1tid5-Ync 82 % Rjc0iua7-%Pred-Pre 100 % Ump1pik1-GCU 73 % Sputum Culture And Gram Stain 01/17/2021 [facility] [address] [place] [address] [phone] Gram Stain (SEE NOTE) Normal 11 Sputum [...] ORGANISM Procedures Date Code Description Status 06/27/2021 18006 Remove Impacted Cerumen Complete d 06/27/2021 18428 Office/Outpatient New Low MDM 30 -44 Minutes Completed 06/26/2021 28144 Office/Outpatient Established Mo d MDM 30-39 Min Completed 06/20/2021 50165 Bronchoscopy W/Bronchial Alveola r Lavage Completed 06/12/2021 84828 Office/Outpatient Established Mo d MDM 30-39 Min Completed 04/17/2021 40282 Office/Outpatient Established Mo d MDM 30-39 Min Completed 03/01/2021 07373 Office/Outpatient Established Mo d MDM 30-39 Min Completed 02/17/2021 76604 Hospital Subsequent Care Level 2 Completed 02/16/2021 10627 Hospital Subsequent Care Level 2 Completed 02/14/2021 32449 Hospital Subsequent Care Level 2 Completed 02/13/2021 42950 Hospital Subsequent Care Level 2 Completed 02/12/2021 37004 Bronchoscopy W/Biopsy Completed 02/11/2021 13701 Hospital Subsequent Care Level 2 Completed 02/10/2021 72663 Hospital Subsequent Care Level 2 Completed 02/09/2021 24698 Hospital Subsequent Care Level 2 Completed 02/08/2021 72485 Hospital Subsequent Care Level 2 Completed 02/06/2021 16347 Hospital Subsequent Care Level 2 Completed 01/30/2021 32044 Office/Outpatient Established Mo d MDM 30-39 Min Completed 01/30/2021 14420 Spirometry Completed 01/18/2021 80112 Office/Outpatient Established Lo w MDM 20-29 Min Completed 01/17/2021 57664 Office/Outpatient Established Mo d MDM 30-39 Min Completed Medical Devices Description No Information Available Encounters Type Date Location Provider Dx Diagnosis Office Visit 06/26/2021 11:00a [facility] Vic ars, D.O. R91.8 Other nonspecific abnormal finding of tony ng field Z85.118 Personal history of malignan t neoplasm of bronchus and lung Z86.711 Personal history of pulmonar y embolism J47.9 Bronchiectasis, uncomplicate d Office Visit 06/12/2021 11:30a [facility] Vic Se ars, D.O. R91.8 Other nonspecific abnormal finding of tony ng field I31.3 Pericardial effusion (noninf lammatory) Z85.118 Personal history of malignan t neoplasm of bronchus and lung Office Visit 04/17/2021 1:30p [facility] Vic Se ars, D.O. R04.2 Hemoptysis Z85.118 Personal history of malignan t neoplasm of bronchus and lung Z86.711 Personal history of pulmonar y embolism M25.552 Pain in left hip Office Visit 03/01/2021 1:30p [facility] Vic Se ars, D.O. R04.2 Hemoptysis Z85.118 Personal history of malignan t neoplasm of bronchus and lung Z86.711 Personal history of pulmonar y embolism M25.552 Pain in left hip Office Visit 02/17/2021 1:23a [facility] Ashley Ventura M.D. R04.2 Hemoptysis R91.8 Other nonspecific abnormal f inding of lung field R60.9 Edema, unspecified Office Visit 02/16/2021 1:23a [facility] Ashley Ventura M.D. R04.2 Hemoptysis C34.90 Malignant neoplasm of unsp p art of unsp bronchus or lung D64.9 Anemia, unspecified R60.9 Edema, unspecified Office Visit 02/14/2021 1:23a [facility] Vic Se ars, D.O. R04.2 Hemoptysis C34.90 Malignant neoplasm of unsp p art of unsp bronchus or lung Office Visit 02/13/2021 1:23a [facility] Vic Se ars, D.O. R04.2 Hemoptysis C34.90 Malignant neoplasm of unsp p art of unsp bronchus or lung Office Visit 02/11/2021 1:23a [facility] Vic Se ars, D.O. R04.2 Hemoptysis R00.0 Tachycardia, unspecified D72.829 Elevated white blood cell co unt, unspecified Office Visit 02/10/2021 1:23a [facility] Vic Se noemí, D.O. R04.2 Hemoptysis C34.90 Malignant neoplasm of unsp p art of unsp bronchus or lung D72.829 Elevated white blood cell co unt, unspecified Z86.711 Personal history of pulmonar y embolism Office Visit 02/09/2021 1:23a [facility] Vic Se noemí, D.O. R04.2 Hemoptysis C34.90 Malignant neoplasm of unsp p art of unsp bronchus or lung D72.829 Elevated white blood cell co unt, unspecified Z86.711 Personal history of pulmonar y embolism Office Visit 02/08/2021 1:23a [facility] Heather Loaiza MD R04.2 Hemoptysis B96.5 Pseudomonas (mallei) causing diseases classd elsr Z85.118 Personal history of malignan t neoplasm of bronchus and lung Z86.711 Personal history of pulmonar y embolism Office Visit 02/06/2021 1:23a [facility] Heather Loaiza MD R04.2 Hemoptysis B96.5 Pseudomonas (mallei) causing diseases classd elswhr Z85.118 Personal history of malignan t neoplasm of bronchus and lung Z86.711 Personal history of pulmonar y embolism Office Visit 01/30/2021 1:00p [facility] Vic dowd D.O. J44.9 Chronic obstructive pulmonary disease, u nspecified G47.33 Obstructive sleep apnea (jitendra lt) (pediatric) Office Visit 01/18/2021 11:15a [facility] David Maldonado MD J37.0 Chronic laryngitis Office Visit 01/17/2021 1:00p [facility] Vic dowd D.O. R91.8 Other nonspecific abnormal finding of [facility] field J44.9 Chronic obstructive pulmonar y disease, [...] Sears, D.O . 02/17/2021 R04.2 Hemoptysis Dale, AshleyLeida san 02/17/2021 R91.8 Other nonspecific abnormal findi ng of lung field Marie HunterLeida san 02/17/2021 R60.9 Edema, unspecified Linda Hunter Leida mc 02/16/2021 R04.2 Hemoptysis Dale Leida Ramirez 02/16/2021 C34.90 Malignant neoplasm o f unspecified part of unspecified bronchus or lung Ashley Hunter M.D. 02/16/2021 D64.9 Anemia, unspecified Marie Huntergayle mckeon M.D. 02/16/2021 R60.9 Edema, unspecified Linda Hunter Leida mc 02/14/2021 R04.2 Hemoptysis Vic Sears, D.O. 02/14/2021 [...] Personal history of pulmonary em bolism Vic Radha, D.O. 02/09/2021 R04.2 Hemoptysis Vic Parnell, D.O. 02/09/2021 C34.90 Malignant neoplasm o f unspecified part of unspecified bronchus or lung Vic Parnell, D.O. 02/09/2021 D72.829 Elevated white blood cell count, unspecified Vic Seaeliseo, D.O. 02/09/2021 Z86.711 Personal history of pulmonary em bolism Vic Parnell, D.O. 02/08/2021 R04.2 Hemoptysis Victoriano Loaiza MD [...] G47.33 Obstructive sleep apnea (adult) (pediatric) Vic Parnell D.O. 01/18/2021 J37.0 Chronic laryngitis David pruitt MD 01/17/2021 R91.8 Other nonspecific abnormal findi ng of lung field Vic Parnell D.O. 01/17/2021 J44.9 Chronic obstructive pulmonary di sease, unspecified Vic Sears, D.O. 01/17/2021 G47.33 Obstructive sleep apnea (adult) (pediatric) Vic Parnell D.O. Plan of Treatment Future Appointment(s):* 10/02/2021 2:30 pm - Vic Parnell D.O. at [facility] * 07/04/2021 11:15 am - JENN Rodríguez at [facility] * 07/25/2021 3:15 pm - Vic Parnell D.O. at [facility] 06/26/2021 - Vic Parnell D.O.* R91.8 Other nonspecific abnormal finding of lung field * Z85.118 Personal history of other malignant neoplasm of bronchus and lung * Z86.711 Personal history of pulmonary embolism * J47.9 Bronchiectasis * * New Xrays:* CT Chest W/O Contrast, Ordered: 06/26/21 * Follow up:* Please check on [facility] referral. CPT vest. Follow up in September with chest CT. Functional Status Description No Information Available Mental Status Description No Information Available Referrals Refer to Dr Reason for Referral Status Appt Date [place], Audiology Audiogram Sent Nichol Escobedo, [address] [place] [address] [phone] Radiology/Procedure 75626 Closed 04/09/2021 David Maldonado M.D. VOICE HOARSENESS Closed 01/19/20 [facility] [address] [phone]
--- OUTSIDE RECORDS SUMMARY | 2021-08-25 12:38 | CCD | Continuity of Care Document ---
Author Author Chantale PARNELL.[facility] [place] [address] Phone [phone] Care Team Providers Care Director Database Name Role Phone Franca Nicole M.D. AUTM [phone] Marlin Carter M.D. AUTM [phone] Problems Active Problems Provider Date Essential hypertension [...] 16 Allergies, Adverse Reactions, Alerts Active Allergies Reaction Severity Comments Date Penicillin 09/01/2017 Seafood 09/15/2017 Medications Active Medications SIG Qnty Indications [...] every day 10tabs Parish HuntOKellen 03/26/2021 - Levofloxacin 500mg Tablets 1 by mouth every day 14tabs J44.9 Parish HuntO. 01/30/2021 - Itraconazole 100mg Capsules one tab po daily 14caps J44.9 Pairsh HuntO. 01/30/2021 - Fluconazole 150mg Tablets one tab, repeat once in 2 days if thrush persistent 14tabs Parish HuntOKellen 01/30/2021 - 01/29/2021 Prednisone 10mg Tablets 4 tabs po qd x5d, 3 tabs po qd x5d, 2 tabs po qd x5d, 1 tab x 5 days, then 1/2 tab po x 5 days 53tabs R05 Parish HuntOKellen 01/22/2021 - 021 Immunizations CPT Code Status Date Vaccine Lot # [id number] Given 09/07/2019 Prevnar 13 [id number] Given 08/18/2019 Afluria, Quadrivalent, 0.5ml , [facility]# 67762-779-59 Vital Signs Date Vital Result Comment 06/12/2021 11:19am BP Systolic 110 mmHg BP Diastolic 60 mmHg Heart Rate 91 /min O2 % BldC Oximetry 983 % Height 60 inches 5'0" Weight 172.00 lb BMI (Body Mass Index) 33.6 kg/m2 [place] Body Weight 100 lb Weight 78.019 kg BSA (Body Surface Area) 1.75 m2 04/17/2021 1:17pm BP Systolic 110 mmHg BP Diastolic 60 mmHg Heart Rate 91 /min O2 % BldC Oximetry 992 % Body Temperature 97.3 F Height 60 inches 5'0" Weight 178.00 lb BMI (Body Mass Index) 34.8 kg/m2 [place] Body Weight 100 lb Weight 80.741 kg BSA (Body Surface Area) 1.78 m2 Results Test Acquired Date Facility Test Result H/L Range Note Sputum Culture And Gram Stain 05/23/2021 [facility] [address] [place] [phone] Gram Stain (SEE NOTE) Normal 1 Sputum Culture FULL REPORT IN L <SEE NOTE> Normal 2 Sputum Culture And Gram Stain 04/30/2021 [facility] [address] [place] [phone] Gram Stain (SEE NOTE) Normal 3 Sputum Culture FULL REPORT IN L <SEE NOTE> Normal 4 Sputum Culture And Gram Stain 03/26/2021 [facility] [address] [place] [phone] Gram Stain (SEE NOTE) Normal 5 Sputum Culture FULL REPORT IN L <SEE NOTE> Normal 6 Sputum Culture And Gram Stain 01/30/2021 [facility] [address] [place] [phone] Gram Stain (SEE NOTE) Normal 7 Sputum Culture FULL REPORT IN L <SEE NOTE> Normal 8 FVL/[place] 01/30/2021 [employer] PDFReport SEE IMAGE FVC-Pred 2.96 L FVC-Pre 0.89 L FVC-%Pred-Pre 30 L FVC-LLN 2.35 L Fev1-Pred 2.32 L Fev1-Pre 0.73 L Fev1-%Pred-Pre 31 L Fev1-LLN 1.80 L Fev6-Pred 2.87 L Fev6-Pre 0.89 L Fev6-%Pred-Pre 31 L Fev6-LLN 2.27 L Bqj9dfn-Xuky 79 % Xda7xqr-Mlq 82 % Zyp8moe-%Pred-Pre 103 % Enk3zsp-PUD 69 % Mlx8bgu-Asou 97 % Spl5lke-Gzn 100 % Gdy5nmv-%Pred-Pre 103 % FEFMax-Pred 5.94 L/E/sec FEFMax-Pre 2.11 L/E/sec FEFMax-%Pred-Pre 35 L/E/sec FEFMax-LLN 4.44 L/E/sec Xpd0723-Vgfk 2.34 L/E/sec Giy4910-Qsj 0.74 L/E/sec Edr2377-%Pred-Pre 31 L/E/sec Cni1406-ZXO 1.25 L/E/sec ExpTime-Pre 5.94 sec Trj8ipk2-Uocp 82 % Bne0nvh4-Drm 82 % Wrt0ntw5-%Pred-Pre 100 % Omj4euc5-OFO 73 % Sputum Culture And Gram Stain 01/17/2021 [facility] [address] [place] [address] [phone] Gram Stain (SEE NOTE) Normal 9 Sputum Culture FULL REPORT IN L <SEE NOTE> Normal 10 1 QUALITY: GOOD MODERATE EPITHELIAL CELLS MODERATE WBCS MANY GRAM POSITIVE COCCI IN PAIRS, CHAINS AND CLUSTERS FEW YEAST LIKE ORGANISM MANY GRAM POSITIVE RODS FEW GRAM NEGATIVE RODS 2 FULL REPORT IN LAB NOTES ([facility] and [facility]). NORMAL JEROME PRESENT 3 QUALITY: GOOD MODERATE WBCS FEW EPITHELIAL CELLS MODERATE GRAM POSITIVE COCCI IN PAIRS AND CHAINS FEW GRAM POSITIVE RODS 4 FULL REPORT IN LAB NOTES [...] CEFEPIME IV 2 gm q12h <=1 S 5 QUALITY: GOOD MANY WBCS FEW EPITHELIAL CELLS MANY GRAM POSITIVE COCCI IN PAIRS, CHAINS AND CLUSTERS MODERATE GRAM POSITIVE RODS 6 FULL REPORT IN LAB NOTES ([facility] and [facility]). NORMAL JEROME PRESENT ORGANISM 1: MOLD LIKE ORGANISM QUANTITY OF GROWTH FEW ORGANISM 1: MOLD LIKE ORGANISM 7 QUALITY: GOOD FEW EPITHELIAL CELLS MANY WBCS FEW GRAM POSITIVE COCCI IN PAIRS AND CLUSTERS FEW GRAM NEGATIVE COCCOBACILLUS 8 FULL REPORT IN LAB NOTES (eC [...] CEFEPIME IV 2 gm q12h 2 S 9 QUALITY: GOOD MANY WBCS FEW EPITHELIAL CELLS MODERATE GRAM POSITIVE COCCI IN PAIRS, CHAINS AND CLUSTERS FEW YEAST LIKE ORGANISM WITH PSEUDOHYPHAE FEW GRAM NEGATIVE RODS 10 FULL REPORT IN LAB NOTES ([facility] and [facility]). NORMAL JEROME PRESENT ORGANISM 1: YEAST LIKE ORGANISM QUANTITY OF GROWTH FEW ORGANISM 1: YEAST LIKE ORGANISM Procedures Date Code Description Status 06/12/2021 61490 Office/Outpatient Established Mo d MDM 30-39 Min Completed 04/17/2021 85602 Office/Outpatient Established Mo d MDM 30-39 Min Completed 03/01/2021 09391 Office/Outpatient Established Mo d MDM 30-39 Min Completed 02/17/2021 38714 Hospital Subsequent Care Level 2 Completed 02/16/2021 39906 Hospital Subsequent Care Level 2 Completed 02/14/2021 20782 Hospital Subsequent Care Level 2 Completed 02/13/2021 05042 Hospital Subsequent Care Level 2 Completed 02/12/2021 94701 Bronchoscopy W/Biopsy Completed 02/11/202143736 Hospital Subsequent Care Level 2 Completed 02/10/202155162 Hospital Subsequent Care Level 2 Completed 02/09/2021 Hospital Subsequent Care Level 2 Completed 02/08/202139082 Hospital Subsequent Care Level 2 Completed 02/06/202197587 Hospital Subsequent Care Level 2 Completed 01/30/2021 15008 Office/Outpatient Established Mo d MDM 30-39 Min Completed 01/30/2021 54392 Spirometry Completed 01/18/202147723 Office/Outpatient Established Lo w MDM 20-29 Min Completed 01/17/2021 88193 Office/Outpatient Established Mo d MDM 30-39 Min Completed 12/26/2020 Hospital Subsequent Care Level 2 Completed 12/25/2020 Hospital Subsequent Care Level 2 Completed 12/24/2020 Hospital Subsequent Care Level 2 Completed Medical Devices Description No Information Available Encounters Type Date Location Provider Dx Diagnosis Office Visit 06/12/2021 11:30a [facility] Vic Se ars, D.O. R91.8 Other nonspecific abnormal finding of tony ng field I31.3 Pericardial effusion (noninf lammatory) Z85.118 Personal history of malignan t neoplasm of bronchus and lung Office Visit 04/17/2021 1:30p [facility] Vic Se noemí, D.O. R04.2 Hemoptysis Z85.118 Personal history of malignan t neoplasm of bronchus and lung Z86.711 Personal history of pulmonar y embolism M25.552 Pain in left hip Office Visit 03/01/2021 1:30p [facility] Vic Se noemí, D.O. R04.2 Hemoptysis Z85.118 Personal history of malignan t neoplasm of bronchus and lung Z86.711 Personal history of pulmonar y embolism M25.552 Pain in left hip Office Visit 02/17/2021 1:23a [facility] Ashley Ventura M.D. R04.2 Hemoptysis R91.8 Other nonspecific abnormal f inding of lung field R60.9 Edema, unspecified Office Visit 02/16/2021 1:23a [facility] Ashley Ventura M.D. R04.2 Hemoptysis C34.90 Malignant neoplasm of unsp p art of unsp bronchus or lung D64.9 Anemia, unspecified R60.9 Edema, unspecified Office Visit 02/14/2021 1:23a [facility] Vic Se ars, D.O. R04.2 Hemoptysis C34.90 Malignant neoplasm of unsp p art of unsp bronchus or lung Office Visit 02/13/2021 1:23a [facility]acic Vic Se ars, D.O. R04.2 Hemoptysis C34.90 Malignant neoplasm of unsp p art of unsp bronchus or lung Office Visit 02/11/2021 1:23a [facility] Vic Se ars, D.O. R04.2 Hemoptysis R00.0 Tachycardia, unspecified D72.829 Elevated white blood cell co unt, unspecified Office Visit 02/10/2021 1:23a [facility]acic Vic Se ars, D.O. R04.2 Hemoptysis C34.90 Malignant neoplasm of unsp p art of unsp bronchus or lung D72.829 Elevated white blood cell co unt, unspecified Z86.711 Personal history of pulmonar y embolism Office Visit 02/09/2021 1:23a [facility] Vic Se ars, D.O. R04.2 Hemoptysis C34.90 Malignant neoplasm of unsp p art of unsp bronchus or lung D72.829 Elevated white blood cell co unt, unspecified Z86.711 Personal history of pulmonar y embolism Office Visit 02/08/2021 1:23a [facility] Heather Loaiza MD R04.2 Hemoptysis B96.5 Pseudomonas (mallei) causing diseases classd elswhr Z85.118 Personal history of malignan t neoplasm of bronchus and lung Z86.711 Personal history of pulmonar y embolism Office Visit 02/06/2021 1:23a [facility]acic Heather Loaiza MD R04.2 Hemoptysis B96.5 Pseudomonas (mallei) causing diseases classd elswhr Z85.118 Personal history of malignan t neoplasm of bronchus and lung Z86.711 Personal history of pulmonar y embolism Office Visit 01/30/2021 1:00p [facility]Thoracic Vic Geneva Brown.OKellen J44.9 Chronic obstructive pulmonary disease, u nspecified G47.33 Obstructive sleep apnea (jitendra lt) (pediatric) Office Visit 01/18/2021 11:15a [facility] David Maldonado MD J37.0 Chronic laryngitis Office Visit 01/17/2021 1:00p [facility]acic Vic Se noemí D.O. R91.8 Other nonspecific abnormal finding of tony ng field J44.9 Chronic obstructive pulmonar y disease, unspecified G47.33 Obstructive sleep apnea (jitendra lt) (pediatric) Office Visit 12/26/2020 1:23a [facility] Ashley Ventura M.D. J44.1 Chronic obstructive pulmonar y disease w (acute) exacerbation Z85.118 Personal history of malignan t neoplasm of bronchus and lung Z86.16 Personal history of Covid-19 Z86.711 Personal history of pulmonar y embolism Office Visit 12/25/2020 1:23a [facility] Ashley Ventura M.D. J44.1 Chronic obstructive pulmonar y disease w (acute) exacerbation Z85.118 Personal history of malignan t neoplasm of bronchus and lung Z86.16 Personal history of Covid-19 Z86.711 Personal history of pulmonar y embolism Office Visit 12/24/2020 1:23a [facility] Ashley Ventura M.D. J44.1 Chronic obstructive pulmonar y disease w (acute) exacerbation R05 Cough Z86.711 Personal history of pulmonar y embolism Z86.16 Personal history of Covid-19 Assessments Date Code Description Provider 06/12/2021 R91.8 Other nonspecific abnormal findi ng of lung field Geneva Hunt.[facility] 06/12/2021 I31.3 Pericardial effusion (noninflamm atory) Parish HuntOKellen 06/12/2021 Z85.118 Personal history of other malignant neoplasm of bronchus and lung Parish HuntOKellen 04/17/2021 R04.2 Hemoptysis Vic Sears, D.O. 04/17/2021 [...] sleep apnea (adult) (pediatric) Vic Sears, D.O. 12/26/2020 J44.1 Chronic obstructive pulmonary disease with (acute) exacerbation Ashley Hunter M.D. 12/26/2020 Z85.118 Personal history of other malignant neoplasm of bronchus and lung Ashley Hunter M.D. 12/26/2020 Z86.16 Personal history of Covid-19 Ashley Gutiérrez M.D. 12/26/2020 Z86.711 Personal history of pulmonary em Ashley Myrick M.D. 12/25/2020 J44.1 Chronic obstructive pulmonary disease with (acute) exacerbation Ashley Hunter M.D. 12/25/2020 Z85.118 Personal history of other malignant neoplasm of bronchus and lung Ashley Hunter M.D. 12/25/2020 Z86.16 Personal history of Covid-19 Ashley Gutiérrez M.D. 12/25/2020 Z86.711 Personal history of pulmonary em Ashley Myrick M.D. 12/24/2020 J44.1 Chronic obstructive pulmonary disease with (acute) exacerbation Ashley Hunter M.D. 12/24/2020 R05 Cough Ashley Hunter M.D. 12/24/2020 Z86.711 Personal history of pulmonary em bolism Ashley Hunter M.D. 12/24/2020 Z86.16 Personal history of Covid-19 Ashley Gutiérrez M.D. Plan of Treatment Future Appointment(s):* 06/20/2021 7:30 am - Vic Parnell D.O. at [facility] Pulmonary[facility]Thoracic * 06/26/2021 11:00 am - Vic Parnell D.O. at [facility] Pulmonary/Thoracic * 07/04/2021 11:15 am - JENN Rodríguez at [facility] Gastroenterology Practice * 07/25/2021 3:15 pm - Vic Parnell D.O. at [facility] Pulmonary/Thoracic 06/12/2021 - Vic Parnell D.O.* R91.8 [...] Reason for Referral Status Appt Date Radiology/Procedure 92684 Closed 04/09/2021 David Maldonado M.D. VOICE [facility]ARS[facility] Closed 01/19/20 [facility] [address] [address] [phone]
--- OUTSIDE RECORDS SUMMARY | 2021-08-25 12:46 | CCD ---
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 Name Role Phone USMAN, F TADEO DO Unavailable Unavailable USMAN, F TADEO DO Unavailable Unavailable USMAN, F TADEO DO Unavailable Unavailable USMAN, F TADEO DO Unavailable Unavailable USMAN, F TADEO DO Unavailable Unavailable USMAN, F TADEO DO Unavailable Unavailable USMAN, F TADEO DO Unavailable Unavailable USMAN, F TADEO DO Unavailable Unavailable USMAN, F TADEO DO Unavailable Unavailable USMAN, F TADEO DO Unavailable Unavailable USMAN, F TADEO DO Unavailable Unavailable USMAN, F TADEO DO Unavailable Unavailable USMAN, F TADEO DO Unavailable Unavailable USMAN, F TADEO DO Unavailable Unavailable USMAN, F TADEO DO Unavailable Unavailable USMAN, F TADEO DO Unavailable Unavailable USMAN, F TADEO DO Unavailable Unavailable USMAN, F TADEO DO Unavailable Unavailable USMAN, F TADEO DO Unavailable Unavailable USMAN, F TADEO DO Unavailable Unavailable USMAN, F TADEO DO Unavailable Unavailable USMAN, F TADEO DO Unavailable Unavailable USMAN, F TADEO DO Unavailable Unavailable USMAN, F TADEO DO Unavailable Unavailable USMAN, F TADEO DO Unavailable Unavailable USMAN, F TADEO DO Unavailable Unavailable USMAN, F TADEO DO Unavailable Unavailable USMAN, F TADEO DO Unavailable Unavailable USMAN, F TADEO DO Unavailable Unavailable USMAN, F TADEO DO Unavailable Unavailable USMAN, F TADEO DO Unavailable Unavailable USMAN, F TADEO DO Unavailable Unavailable USMAN, F TADEO DO Unavailable Unavailable USMAN, F TADEO DO Unavailable Unavailable Ashley Hunter MD Unavailable Unavailable Ashley Hunter MD Unavailable Unavailable Ashley Hunter MD Unavailable Unavailable Ashley Hunter MD Unavailable Unavailable Ashley Hunter MD Unavailable Unavailable Ashley Hunter MD Unavailable Unavailable Ashley Hunter MD Unavailable Unavailable Ashley Hunter MD Unavailable Unavailable Ashley Hunter MD Unavailable Unavailable Ashley Hunter MD Unavailable Unavailable Ashley Hunter MD Unavailable Unavailable Ashley Hunter MD Unavailable Unavailable Ashley Hunter MD Unavailable Unavailable Ashley Hunter MD Unavailable Unavailable Ashley Hunter MD Unavailable Unavailable Ashley Hunter MD Unavailable Unavailable Ashley Hunter MD Unavailable Unavailable Ashley Hunter MD Unavailable Unavailable Ashley Hunter MD Unavailable Unavailable Ashley Hunter MD Unavailable Unavailable Ashley Hunter MD Unavailable Unavailable Ashley Hunter MD Unavailable Unavailable Ashley Hunter MD Unavailable Unavailable Ashley Hunter MD Unavailable Unavailable Ashley Hunter MD Unavailable Unavailable Ashley Hunter MD Unavailable Unavailable Ashley Hunter MD Unavailable Unavailable Ashley Hunter MD Unavailable Unavailable Ashley Hunter MD Unavailable Unavailable Ashley Hunter MD Unavailable Unavailable Regine, H Gail CAT SCAN TECHNOLOGIST Unavailable Unavailable Regine, H Gail CAT SCAN TECHNOLOGIST Unavailable Unavailable Regine, H Gail CAT SCAN TECHNOLOGIST Unavailable Unavailable Regine, H Gail CAT SCAN TECHNOLOGIST Unavailable Unavailable Regine, H Gail CAT SCAN TECHNOLOGIST Unavailable Unavailable Regine, H Gail CAT SCAN TECHNOLOGIST Unavailable Unavailable Regine, H Gail CAT SCAN TECHNOLOGIST Unavailable Unavailable Regine, H Gail CAT SCAN TECHNOLOGIST Unavailable Unavailable Regine, H Gail CAT SCAN TECHNOLOGIST Unavailable Unavailable Regine, H Gail CAT SCAN TECHNOLOGIST Unavailable Unavailable Regine, H Gail CAT SCAN TECHNOLOGIST Unavailable Unavailable Regine, H Gail CAT SCAN TECHNOLOGIST Unavailable Unavailable Regine, H Gail CAT SCAN TECHNOLOGIST Unavailable Unavailable Regine, H Gali CAT SCAN TECHNOLOGIST Unavailable Unavailable Regine, H Gail CAT SCAN TECHNOLOGIST Unavailable Unavailable Regine, H Gail CAT SCAN TECHNOLOGIST Unavailable Unavailable Regine, H Gail CAT SCAN TECHNOLOGIST Unavailable Unavailable Regine, H Gail CAT SCAN TECHNOLOGIST Unavailable Unavailable Regine, H Gail CAT SCAN TECHNOLOGIST Unavailable Unavailable Regine, H Gail CAT SCAN TECHNOLOGIST Unavailable Unavailable Regine, H Gail CAT SCAN TECHNOLOGIST Unavailable Unavailable Regine, H Gail CAT SCAN TECHNOLOGIST Unavailable Unavailable Regine, H Gail CAT SCAN TECHNOLOGIST Unavailable Unavailable Regine, H Gail CAT SCAN TECHNOLOGIST Unavailable Unavailable Regine, H Gail CAT SCAN TECHNOLOGIST Unavailable Unavailable Regine, H Gail CAT SCAN TECHNOLOGIST Unavailable Unavailable Regine, H Gail CAT SCAN TECHNOLOGIST Unavailable Unavailable Regine, H Gail CAT SCAN TECHNOLOGIST Unavailable Unavailable Regine, H Gail CAT SCAN TECHNOLOGIST Unavailable Unavailable Regine, H Gail CAT SCAN TECHNOLOGIST Unavailable Unavailable Regine, H Gail CAT SCAN TECHNOLOGIST Unavailable Unavailable Regine, H Gail CAT SCAN TECHNOLOGIST Unavailable Unavailable Regine, H Gail CAT SCAN TECHNOLOGIST Unavailable Unavailable Regine, H Gail CAT SCAN TECHNOLOGIST Unavailable Unavailable Regine, H Gail CAT SCAN TECHNOLOGIST Unavailable Unavailable Regine, H Gail CAT SCAN TECHNOLOGIST Unavailable Unavailable Regine, H Gail CAT SCAN TECHNOLOGIST Unavailable Unavailable Regine, H Gail CAT SCAN TECHNOLOGIST Unavailable Unavailable Regine, H Gail CAT SCAN TECHNOLOGIST Unavailable Unavailable Regine, H Gail CAT SCAN TECHNOLOGIST Unavailable Unavailable Regine, H Gail CAT SCAN TECHNOLOGIST Unavailable Unavailable Regine, H Gail CAT SCAN TECHNOLOGIST Unavailable Unavailable Regine, H Gail CAT SCAN TECHNOLOGIST Unavailable Unavailable Regine, H Gail CAT SCAN TECHNOLOGIST Unavailable Unavailable Regine, H Gail CAT SCAN TECHNOLOGIST Unavailable Unavailable Regine, H Gail CAT SCAN TECHNOLOGIST Unavailable Unavailable Regine, H Gali CAT SCAN TECHNOLOGIST Unavailable Unavailable Regine, H Gail CAT SCAN TECHNOLOGIST Unavailable Unavailable Regine, H Gail CAT SCAN TECHNOLOGIST Unavailable Unavailable Regine, H Gail CAT SCAN TECHNOLOGIST Unavailable Unavailable Regine, H Gail CAT SCAN TECHNOLOGIST Unavailable Unavailable Regine, H Gail CAT SCAN TECHNOLOGIST Unavailable Unavailable Regine, H Gail CAT SCAN TECHNOLOGIST Unavailable Unavailable Regine, H Gail CAT SCAN TECHNOLOGIST Unavailable Unavailable Regine, H Gail CAT SCAN TECHNOLOGIST Unavailable Unavailable Regine, H Gail CAT SCAN TECHNOLOGIST Unavailable Unavailable Regine, H Gail CAT SCAN TECHNOLOGIST Unavailable Unavailable Regine, H Gail CAT SCAN TECHNOLOGIST Unavailable Unavailable Regine, H Gail CAT SCAN TECHNOLOGIST Unavailable Unavailable Rory Gomez MD Unavailable Unavailable Rory Gomez MD Unavailable Unavailable Rory Gomez MD Unavailable Unavailable Rory Gomez MD Unavailable Unavailable Rory Gomez MD Unavailable Unavailable Rory Gomez MD Unavailable Unavailable Sara STEEL MD Unavailable [...] Unavailable Unavailable Sara STEEL MD Unavailable Unavailable ARNOLD, P HARINDER MD [...] Unavailable ARNOLD, P HARINDER MD Unavailable Unavailable MELANY, [id number] K. WAJEEHA DO Unavailable Unavail able MELANY, [id number] K. WAJEEHA DO Unavailable Unavail able MELANY, [id number] K. WAJEEHA DO Unavailable Unavail able MELANY, [id number] K. WAJEEHA DO Unavailable Unavail able MELANY, [id number] K. WAJEEHA DO Unavailable Unavail able Ruddy JUNIOR MD Unavailable Unavailable Ruddy JUNIOR MD Unavailable Unavailable Ruddy JUNIOR MD Unavailable Unavailable Ruddy JUNIOR MD Unavailable Unavailable Ruddy JUNIOR MD Unavailable Unavailable SANDIRuddy FRYE MD Unavailable Unavailable Ruddy JUNIOR MD Unavailable Unavailable Ruddy JUNIOR MD Unavailable Unavailable Ruddy JUNIOR MD Unavailable Unavailable Ruddy JUNIOR MD Unavailable Unavailable Ruddy JUNIOR MD Unavailable Unavailable Ruddy JUNIOR MD Unavailable Unavailable SANDIRuddy FRYE MD Unavailable Unavailable SANDIRuddy FRYE MD Unavailable Unavailable SANDIRuddy FRYE MD Unavailable Unavailable SANDIRuddy FRYE MD Unavailable Unavailable Ruddy JUNIOR MD Unavailable Unavailable SANDIRuddy FRYE MD Unavailable Unavailable SANDIRuddy FRYE MD Unavailable Unavailable SANDIRuddy FRYE MD Unavailable Unavailable Appleton Falanga, A Evelyn LEAN MANUFACTURING LEADER Unavailable Unavailable Greg Falanga, A Evelyn LEAN MANUFACTURING LEADER Unavailable Unavailable Appleton Falanga, A Evelyn LEAN MANUFACTURING LEADER Unavailable Unavailable Appleton Falanga, A Evelyn LEAN MANUFACTURING LEADER Unavailable Unavailable Greg Falanga, A Evelyn LEAN MANUFACTURING LEADER Unavailable Unavailable Appleton Falanga, A Evelyn LEAN MANUFACTURING LEADER Unavailable Unavailable Appleton Falanga, A Evelyn LEAN MANUFACTURING LEADER Unavailable Unavailable Greg Falanga, A Evelyn LEAN MANUFACTURING LEADER Unavailable Unavailable Appleton Falanga, A Evelyn LEAN MANUFACTURING LEADER Unavailable Unavailable Appleton Falanga, A Evelyn LEAN MANUFACTURING LEADER Unavailable Unavailable Greg Falanga, A Evelyn LEAN MANUFACTURING LEADER Unavailable Unavailable Greg Falanga, A Evelyn LEAN MANUFACTURING LEADER Unavailable Unavailable Appleton Falanga, A Evelyn LEAN MANUFACTURING LEADER Unavailable Unavailable Greg Falanga, A Evelyn LEAN MANUFACTURING LEADER Unavailable Unavailable Greg Falanga, A Evelyn LEAN MANUFACTURING LEADER Unavailable Unavailable Greg Falanga, A Evelyn LEAN MANUFACTURING LEADER Unavailable Unavailable Greg Falanga, A Evelyn LEAN MANUFACTURING LEADER Unavailable Unavailable Appleton Falanga, A Evelyn LEAN MANUFACTURING LEADER Unavailable Unavailable Greg Falanga, A Evelyn LEAN MANUFACTURING LEADER Unavailable Unavailable Appleton Falanga, A Evelyn LEAN MANUFACTURING LEADER Unavailable Unavailable Greg Falanga, A Evelyn LEAN MANUFACTURING LEADER Unavailable Unavailable Appleton Falanga, A Evelyn LEAN MANUFACTURING LEADER Unavailable Unavailable Appleton Falanga, A Evelyn LEAN MANUFACTURING LEADER Unavailable Unavailable Appleton Falanga, A Evelyn LEAN MANUFACTURING LEADER Unavailable Unavailable Greg Falanga, A Evelyn LEAN MANUFACTURING LEADER Unavailable Unavailable Greg Falanga, A Evelyn LEAN MANUFACTURING LEADER Unavailable Unavailable Greg Falanga, A Evelyn LEAN MANUFACTURING LEADER Unavailable Unavailable Appleton Falanga, A Evelyn LEAN MANUFACTURING LEADER Unavailable Unavailable Appleton Falanga, A Evelyn LEAN MANUFACTURING LEADER Unavailable [facility]available [facility] Unavailable Unavailable BEL CARLISLE MD Unavailable Unavailable BEL CARLISLE MD Unavailable Unavailable BEL CARLISLE MD Unavailable Unavailable BEL CARLISLE MD Unavailable Unavailable BEL CARLISLE MD Unavailable Unavailable BEL CARLISLE MD Unavailable Unavailable BEL CARLISLE MD Unavailable Unavailable BEL CARLISLE MD Unavailable Unavailable BEL CARLISLE MD Unavailable Unavailable BEL CARLISLE MD Unavailable Unavailable BEL CARLISLE MD Unavailable Unavailable BEL CARLISLE MD Unavailable Unavailable Quezada, Keara Cristin PA Unavailable Unavailable Quezada, Keara Cristin PA Unavailable Unavailable Quezada, Keara Cristin PA Unavailable Unavailable Quezada, Keara Cristni PA Unavailable Unavailable Quezada, Keara Cristin PA Unavailable Unavailable Quezada, Keara Cristin PA Unavailable Unavailable Quezada, Keara Cristin PA Unavailable Unavailable Quezada, Keara Cristin PA Unavailable Unavailable Quezada, Keara Cristin PA Unavailable Unavailable Quezada, Keara Cristin PA Unavailable Unavailable SEARS, A HUGH DO Unavailable [...] Unavailable SEARS, A HUGH DO Unavailable Unavailable MIGNIECY BERNY Unavailable Unavailable KIM, MAQBOOL OSMEL MD Unavailable Unavailable KIM, MAQBOOL OSMEL MD Unavailable Unavailable KIM, MAQBOOL OSMEL MD Unavailable Unavailable KIM, MAQBOOL OSMEL MD Unavailable Unavailable KIM, MAQBOOL OSMEL MD Unavailable Unavailable KIM, MAQBOOL OSMEL MD Unavailable Unavailable KIM, MAQBOOL OSMEL MD Unavailable Unavailable KIM, MAQBOOL OSMEL MD Unavailable Unavailable KIM, MAQBOOL OSMEL MD Unavailable Unavailable KIM, MAQBOOL OSMEL MD Unavailable Unavailable KIM, MAQBOOL OSMEL MD Unavailable Unavailable KIM, MAQBOOL OSMEL MD Unavailable Unavailable KIM, MAQBOOL OSMEL MD Unavailable Unavailable KIM, MAQBOOL OSMEL MD Unavailable Unavailable KIM, MAQBOOL OSMEL MD Unavailable Unavailable KIM, MAQBOOL OSMEL MD Unavailable Unavailable KIM, MAQBOOL OSMEL MD Unavailable Unavailable KIM, MAQBOOL OSMEL MD Unavailable Unavailable KIM, MAQBOOL OSMEL MD Unavailable Unavailable KIM, MAQBOOL OSMEL MD Unavailable Unavailable KIM, MAQBOOL OSMEL MD Unavailable Unavailable KIM, MAQBOOL OSMEL MD Unavailable Unavailable KIM, MAQBOOL OSMEL MD Unavailable Unavailable KIM, MAQBOOL OSMEL MD Unavailable Unavailable KIM, MAQBOOL OSMEL MD Unavailable Unavailable KIM, MAQBOOL OSMEL MD Unavailable Unavailable KIM, MAQBOOL OSMEL MD Unavailable Unavailable KIM, MAQBOOL OSMEL MD Unavailable Unavailable KIM, MAQBOOL OSMEL MD Unavailable Unavailable KIM, MAQBOOL OSMEL MD Unavailable Unavailable KIM, MAQBOOL OSMEL MD Unavailable Unavailable KIM, MAQBOOL OSMEL MD Unavailable Unavailable KIM, MAQBOOL OSMEL MD Unavailable Unavailable KIM, MAQBOOL OSMEL MD Unavailable Unavailable KIM, MAQBOOL OSMEL MD Unavailable Unavailable KIM, MAQBOOL OSMEL MD Unavailable Unavailable KIM, MAQBOOL OSMEL MD Unavailable Unavailable KIM, MAQBOOL OSMEL MD Unavailable Unavailable KIM, MAQBOOL OSMEL MD Unavailable Unavailable KIM, MAQBOOL OSMEL MD Unavailable Unavailable KIM, MAQBOOL OSMEL MD Unavailable Unavailable KIM, MAQBOOL OSMEL MD Unavailable Unavailable KIM, MAQBOOL OSMEL MD Unavailable Unavailable KIM, MAQBOOL OSMEL MD Unavailable Unavailable KIM, MAQBOOL OSMEL MD Unavailable Unavailable KIM, MAQBOOL OSMEL MD Unavailable Unavailable KIM, MAQBOOL OSMEL MD Unavailable Unavailable KIM, MAQBOOL OSMEL MD Unavailable Unavailable KIM, MAQBOOL OSMEL MD Unavailable Unavailable KIM, MAQBOOL OSMEL MD Unavailable Unavailable KIM, MAQBOOL OSMEL MD Unavailable Unavailable KIM, MAQBOOL OSMEL MD Unavailable Unavailable KIM, MAQBOOL OSMEL MD Unavailable Unavailable KIM, MAQBOOL OSMEL MD Unavailable Unavailable KIM, MAQBOOL OSMEL MD Unavailable Unavailable KIM, MAQBOOL OSMEL MD Unavailable Unavailable KIM, MAQBOOL OSMEL MD Unavailable Unavailable KIM, MAQBOOL OSMEL MD Unavailable Unavailable KIM, MAQBOOL OSMEL MD Unavailable Unavailable KIM, MAQBOOL OSMEL MD Unavailable Unavailable KIM, MAQBOOL OSMEL MD Unavailable Unavailable KIM, MAQBOOL OSMEL MD Unavailable Unavailable KIM, MAQBOOL OSMEL MD Unavailable Unavailable KIM, MAQBOOL OSMEL MD Unavailable Unavailable KIM, MAQBOOL OSMEL MD Unavailable Unavailable KIM, MAQBOOL OSMEL MD Unavailable Unavailable KIM, MAQBOOL OSMEL MD Unavailable Unavailable KIM, MAQBOOL OSMEL MD Unavailable Unavailable KIM, MAQBOOL OSMEL MD Unavailable Unavailable KIM, MAQBOOL OSMEL MD Unavailable Unavailable KIM, MAQBOOL OSMEL MD Unavailable Unavailable KIM, MAQBOOL OSMEL MD Unavailable Unavailable KIM, MAQBOOL OSMEL MD Unavailable Unavailable KIM, MAQBOOL OSMEL MD Unavailable Unavailable KIM, MAQBOOL OSMEL MD Unavailable Unavailable KIM, MAQBOOL OSMEL MD Unavailable Unavailable KIM, MAQBOOL OSMEL MD Unavailable Unavailable KIM, MAQBOOL OSMEL MD Unavailable Unavailable TURRIN, MARIA T Unavailable Unavailable TURRIN, MRAIA T Unavailable Unavailable TURRIN, MARIA T Unavailable Unavailable TURRIN, MARIA T Unavailable Unavailable PARNES, Z ROXIE MD Unavailable [...] ROXIE MD Unavailable Unavailable Regine, H Gail CAT SCAN TECHNOLOGIST Unavailable Unavailable Regine, H Gail CAT SCAN TECHNOLOGIST Unavailable Unavailable Regine, H Gail CAT SCAN TECHNOLOGIST Unavailable Unavailable Regine, H Gail CAT SCAN TECHNOLOGIST Unavailable Unavailable Regine, H Gail CAT SCAN TECHNOLOGIST Unavailable Unavailable Regine, H Gail CAT SCAN TECHNOLOGIST Unavailable Unavailable Regine, H Gail CAT SCAN TECHNOLOGIST Unavailable Unavailable Regine, H Gail CAT SCAN TECHNOLOGIST Unavailable Unavailable Regine, H Gail CAT SCAN TECHNOLOGIST Unavailable Unavailable Regine, H Gail CAT SCAN TECHNOLOGIST Unavailable Unavailable Regine, H Gail CAT SCAN TECHNOLOGIST Unavailable Unavailable Regine, H Gail CAT SCAN TECHNOLOGIST Unavailable Unavailable Regine, H Gail CAT SCAN TECHNOLOGIST Unavailable Unavailable Regine, H Gail CAT SCAN TECHNOLOGIST Unavailable Unavailable Regine, H Gail CAT SCAN TECHNOLOGIST Unavailable Unavailable Regine, H Gail CAT SCAN TECHNOLOGIST Unavailable Unavailable Regine, H Gail CAT SCAN TECHNOLOGIST Unavailable Unavailable Regine, H Gail CAT SCAN TECHNOLOGIST Unavailable Unavailable Regine, H Gail CAT SCAN TECHNOLOGIST Unavailable Unavailable Regine, H Gail CAT SCAN TECHNOLOGIST Unavailable Unavailable Regine, H Gail CAT SCAN TECHNOLOGIST Unavailable Unavailable Regine, H Gail CAT SCAN TECHNOLOGIST Unavailable Unavailable Regine, H Gail CAT SCAN TECHNOLOGIST Unavailable Unavailable Regine, H Gail CAT SCAN TECHNOLOGIST Unavailable Unavailable Regine, H Gail CAT SCAN TECHNOLOGIST Unavailable Unavailable Regine, H Gail CAT SCAN TECHNOLOGIST Unavailable Unavailable Regine, H Gial CAT SCAN TECHNOLOGIST Unavailable Unavailable Regine, H Gail CAT SCAN TECHNOLOGIST Unavailable Unavailable Regine, H Gail CAT SCAN TECHNOLOGIST Unavailable Unavailable Regine, H Gail CAT SCAN TECHNOLOGIST Unavailable Unavailable Regine, H Gail CAT SCAN TECHNOLOGIST Unavailable Unavailable Regine, H Gail CAT SCAN TECHNOLOGIST Unavailable Unavailable Regine, H Gail CAT SCAN TECHNOLOGIST Unavailable Unavailable Regine, H Gail CAT SCAN TECHNOLOGIST Unavailable Unavailable Regine, H Gail CAT SCAN TECHNOLOGIST Unavailable Unavailable Regine, H Gail CAT SCAN TECHNOLOGIST Unavailable Unavailable Regine, H Gail CAT SCAN TECHNOLOGIST Unavailable Unavailable Regine, H Gail CAT SCAN TECHNOLOGIST Unavailable Unavailable Regine, H Gail CAT SCAN TECHNOLOGIST Unavailable Unavailable Regine, H Gail CAT SCAN TECHNOLOGIST Unavailable Unavailable Regine, H Gail CAT SCAN TECHNOLOGIST Unavailable Unavailable Regine, H Gail CAT SCAN TECHNOLOGIST Unavailable Unavailable Regine, H Gail CAT SCAN TECHNOLOGIST Unavailable Unavailable Regine, H Gail CAT SCAN TECHNOLOGIST Unavailable Unavailable Regine, H Gail CAT SCAN TECHNOLOGIST Unavailable Unavailable Regine, H Gail CAT SCAN TECHNOLOGIST Unavailable Unavailable Regine, H Gail CAT SCAN TECHNOLOGIST Unavailable Unavailable Regine, H Gail CAT SCAN TECHNOLOGIST Unavailable Unavailable Regine, H Gail CAT SCAN TECHNOLOGIST Unavailable Unavailable Regine, H Gail CAT SCAN TECHNOLOGIST Unavailable Unavailable Regine, H Gail CAT SCAN TECHNOLOGIST Unavailable Unavailable Regine, H Gail CAT SCAN TECHNOLOGIST Unavailable Unavailable Regine, H Gail CAT SCAN TECHNOLOGIST Unavailable Unavailable Regine, H Gail CAT SCAN TECHNOLOGIST Unavailable Unavailable Regine, H Gail CAT SCAN TECHNOLOGIST Unavailable Unavailable Regine, H Gail CAT SCAN TECHNOLOGIST Unavailable Unavailable Regine, H Gail CAT SCAN TECHNOLOGIST Unavailable Unavailable Regine, H Gail CAT SCAN TECHNOLOGIST Unavailable Unavailable Regine, H Gail CAT SCAN TECHNOLOGIST Unavailable Unavailable Arlyn Francis PH.D., M.D. Unavailable Unavailable Arlyn Francis PH.D., M.D. Unavailable Unavailable Arlyn Francis PH.D., M.Parish Unavailable Unavailable Arlyn Francis PH.D., M.D. Unavailable Unavailable Tito, C Cesar PH.D., M.D. Unavailable Unavailable Tito, C Cesar PH.D., M.D. Unavailable Unavailable Tito, C Cesar PH.D., M.D. Unavailable Unavailable Tito, C Cesar PH.D., M.D. Unavailable Unavailable Tito, C Cesar PH.D., M.D. Unavailable Unavailable Tito, C Cesar PH.D., M.D. Unavailable Unavailable Tito, C Cesar PH.D., M.D. Unavailable Unavailable Tito, C Cesar PH.D., M.D. Unavailable Unavailable Tito, C Cesar PH.D., M.D. Unavailable Unavailable Tito, C Cesar PH.D., M.D. Unavailable Unavailable Tito, C Cesar PH.D., M.D. Unavailable Unavailable Tito, C Cesar PH.D., M.D. Unavailable Unavailable Tito, C Cesar PH.D., M.D. Unavailable Unavailable Tito, C Cesar PH.D., M.D. Unavailable Unavailable Tito, C Cesar PH.D., M.D. Unavailable Unavailable Tito, C Cesar PH.D., M.D. Unavailable Unavailable Tito, C Cesar PH.D., M.D. Unavailable Unavailable Tito, C Cesar PH.D., M.D. Unavailable Unavailable Tito, C Cesar PH.D., M.D. Unavailable Unavailable Tito, C Cesar PH.D., M.D. Unavailable Unavailable Tito, C Cesar PH.D., M.D. Unavailable Unavailable Tito, C Cesar PH.D., M.D. Unavailable Unavailable Tito, C Cesar PH.D., M.D. Unavailable Unavailable Tito, C Cesar PH.D., M.D. Unavailable Unavailable Tito, C Cesar PH.D., M.D. Unavailable Unavailable Tito, C Cesar PH.D., M.D. Unavailable Unavailable Tito, C Cesar PH.D., M.D. Unavailable Unavailable Tito, C Cesar PH.D., M.D. Unavailable Unavailable Tito, C Cesar PH.D., M.D. Unavailable Unavailable Tito, C Cesar PH.D., M.D. Unavailable Unavailable Tito, C Cesar PH.D., M.D. Unavailable Unavailable Tito, C Cesar PH.D., M.D. Unavailable Unavailable Tito, C Cesar PH.D., M.D. Unavailable Unavailable Tito, C Cesar PH.D., M.D. Unavailable Unavailable Tito, C Cesar PH.D., M.D. Unavailable Unavailable Tito, C Cesar PH.D., M.D. Unavailable Unavailable Tito, C Cesar PH.D., M.D. Unavailable Unavailable Tito, C Cesar PH.D., M.D. Unavailable Unavailable Tito, C Cesar PH.D., M.D. Unavailable Unavailable Tito, C Cesar PH.D., M.D. Unavailable Unavailable Tito, C Cesar PH.D., M.D. Unavailable Unavailable Tito, C Cesar PH.D., M.D. Unavailable Unavailable Tito, C Cesar PH.D., M.D. Unavailable Unavailable Tito, C Cesar PH.D., M.D. Unavailable Unavailable Tito, C Cesar PH.D., M.D. Unavailable Unavailable Tito, C Cesar PH.D., M.D. Unavailable Unavailable Tito, C Cesar PH.D., M.D. Unavailable Unavailable Tito, C Cesar PH.D., M.D. Unavailable Unavailable Tito, C Cesar PH.D., M.D. Unavailable Unavailable Tito, C Cesar PH.D., M.D. Unavailable Unavailable Tito, C Cesar PH.D., M.D. Unavailable Unavailable Tito, C Cesar PH.D., M.D. Unavailable Unavailable Tito, C Cesar PH.D., M.D. Unavailable Unavailable Tito, C Cesar PH.D., M.D. Unavailable Unavailable Tito, C Cesar PH.D., M.D. Unavailable Unavailable Tito, C Cesar PH.D., M.D. Unavailable Unavailable Tito, C Cesar PH.D., M.D. Unavailable Unavailable Tito, C Cesar PH.D., M.D. Unavailable Unavailable Tito, C Cesar PH.D., M.D. Unavailable Unavailable Tito, C Cesar PH.D., M.D. Unavailable Unavailable Tito, C Cesar PH.D., M.D. Unavailable Unavailable Tito, C Cesar PH.D., M.D. Unavailable Unavailable Tito, C Cesar PH.D., M.D. Unavailable Unavailable Tito, C Cesar PH.D., M.D. Unavailable Unavailable Tito, C Cesar PH.D., M.D. Unavailable Unavailable Tito, C Cesar PH.D., M.D. Unavailable Unavailable Tito, C Cesar PH.D., M.D. Unavailable Unavailable Arlyn Francis PH.D., M.D. Unavailable Unavailable Arlyn Francis PH.D., M.D. Unavailable Unavailable Arlyn Francis PH.D., M.D. Unavailable Unavailable Arlyn rFancis PH.D., M.D. Unavailable Unavailable Arlyn Francis PH.D., M.D. Unavailable Unavailable Arlyn Francis PH.D., M.D. Unavailable Unavailable Arlyn Francis PH.D., M.D. Unavailable Unavailable Arlyn Francis PH.D., M.D. Unavailable Unavailable Arlyn Francis PH.D., M.D. Unavailable Unavailable Arlyn Francis PH.D., M.D. Unavailable Unavailable Arlyn Francis PH.D., M.D. Unavailable Unavailable CHANLIECCO, C GLORIA GARCIA Unavailable Unavailable CHANLIECCO, C GLORIA GARCIA Unavailable Unavailable CHANLIECCO, C GLORIA GARCIA Unavailable Unavailable CHANLIECCO, C GLORIA GARCIA Unavailable Unavailable CHANLIECCO, C GLORIA GARCIA Unavailable Unavailable CHANLIECCO, C GLORIA GARCIA Unavailable Unavailable CHANLIECCO, C GLORIA GARCIA Unavailable Unavailable CHANLIECCO, C GLORIA GARCIA Unavailable Unavailable CHANLIECCO, C GLORIA GARCIA Unavailable Unavailable CHANLIECCO, C GLORIA MD Unavailable Unavailable CHANLIECCO, C GLORIA MD Unavailable Unavailable KIM, MAQBOOL OSMEL MD Unavailable Unavailable KIM, MAQBOOL OSMEL MD Unavailable Unavailable KIM, MAQBOOL OSMEL MD Unavailable Unavailable KIM, MAQBOOL OSMEL MD Unavailable Unavailable KIM, MAQBOOL OSMEL MD Unavailable Unavailable KIM, MAQBOOL OSMEL MD Unavailable Unavailable KIM, MAQBOOL OSMEL MD Unavailable Unavailable KIM, MAQBOOL OSMEL MD Unavailable Unavailable KIM, MAQBOOL OSMEL MD Unavailable Unavailable KIM, MAQBOOL OSMEL MD Unavailable Unavailable KIM, MAQBOOL OSMEL MD Unavailable Unavailable KIM, MAQBOOL OSMEL MD Unavailable Unavailable KIM, MAQBOOL OSMEL MD Unavailable Unavailable KIM, MAQBOOL OSMEL MD Unavailable Unavailable KIM, MAQBOOL OSMEL MD Unavailable Unavailable KIM, MAQBOOL OSMEL MD Unavailable Unavailable KIM, MAQBOOL OSMEL MD Unavailable Unavailable KIM, MAQBOOL OSMEL MD Unavailable Unavailable KIM, MAQBOOL OSMEL MD Unavailable Unavailable KIM, MAQBOOL OSMEL MD Unavailable Unavailable KIM, MAQBOOL OSMEL MD Unavailable Unavailable KIM, MAQBOOL OSMEL MD Unavailable Unavailable KIM, MAQBOOL OSMEL MD Unavailable Unavailable KIM, MAQBOOL OSMEL MD Unavailable Unavailable KIM, MAQBOOL OSMEL MD Unavailable Unavailable KIM, MAQBOOL OSMEL MD Unavailable Unavailable KIM, MAQBOOL OSMEL MD Unavailable Unavailable KIM, MAQBOOL OSMEL MD Unavailable Unavailable KIM, MAQBOOL OSMEL MD Unavailable Unavailable KIM, MAQBOOL OSMEL MD Unavailable Unavailable KIM, MAQBOOL OSMEL MD Unavailable Unavailable KIM, MAQBOOL OSMEL MD Unavailable Unavailable KIM, MAQBOOL OSMEL MD Unavailable Unavailable KIM, MAQBOOL OSMEL MD Unavailable Unavailable KIM, MAQBOOL OSMEL MD Unavailable Unavailable KIM, MAQBOOL OSMEL MD Unavailable Unavailable KIM, MAQBOOL OSMEL MD Unavailable Unavailable KIM, MAQBOOL OSMEL MD Unavailable Unavailable KIM, MAQBOOL OSMEL MD Unavailable Unavailable KIM, MAQBOOL OSMEL MD Unavailable Unavailable KIM, MAQBOOL OSMEL MD Unavailable Unavailable KIM, MAQBOOL OSMEL MD Unavailable Unavailable KIM, MAQBOOL OSMEL MD Unavailable Unavailable KIM, MAQBOOL OSMEL MD Unavailable Unavailable KIM, MAQBOOL OSMEL MD Unavailable Unavailable KIM, MAQBOOL OSMEL MD Unavailable Unavailable KIM, MAQBOOL OSMEL MD Unavailable Unavailable KIM, MAQBOOL OSMEL MD Unavailable Unavailable KIM, MAQBOOL OSMEL MD Unavailable Unavailable KIM, MAQBOOL OSMEL MD Unavailable Unavailable KIM, MAQBOOL OSMEL MD Unavailable Unavailable KIM, MAQBOOL OSMEL MD Unavailable Unavailable KIM, MAQBOOL OSMEL MD Unavailable Unavailable KIM, MAQBOOL OSMEL MD Unavailable Unavailable KIM, MAQBOOL OSMEL MD Unavailable Unavailable KIM, MAQBOOL OSMEL MD Unavailable Unavailable KIM, MAQBOOL OSMEL MD Unavailable Unavailable KIM, MAQBOOL OSMEL MD Unavailable Unavailable KIM, MAQBOOL OSMEL MD Unavailable Unavailable KIM, MAQBOOL OSMEL MD Unavailable Unavailable KIM, MAQBOOL OSMEL MD Unavailable Unavailable KIM, MAQBOOL OSMEL MD Unavailable Unavailable KIM, MAQBOOL OSMEL MD Unavailable Unavailable KIM, MAQBOOL OSMEL MD Unavailable Unavailable KIM, MAQBOOL OSMEL MD Unavailable Unavailable KIM, MAQBOOL OSMEL MD Unavailable Unavailable KIM, MAQBOOL OSMEL MD Unavailable Unavailable KIM, MAQBOOL OSMEL MD Unavailable Unavailable KIM, MAQBOOL OSMEL MD Unavailable Unavailable KIM, MAQBOOL OSMEL MD Unavailable Unavailable KIM, MAQBOOL OSMEL MD Unavailable Unavailable KIM, MAQBOOL OSMEL MD Unavailable Unavailable KIM, MAQBOOL OSMEL MD Unavailable Unavailable KIM, MAQBOOL OSMEL MD Unavailable Unavailable KIM, MAQBOOL OSMEL MD Unavailable Unavailable KIM, MAQBOOL OSMEL MD Unavailable Unavailable KIM, MAQBOOL OSMEL MD Unavailable Unavailable KIM, MAQBOOL OSMEL Unavailable Unavailable Migeed, Berny Jones MD Unavailable Unavaila ble MigeedBerny MD Unavailable Unavaila ble MigeedBerny MD Unavailable Unavaila ble MigeedBerny MD Unavailable Unavaila ble MigeedBerny MD Unavailable Unavaila ble MigeedBerny MD Unavailable Unavaila ble MigeedBerny MD Unavailable Unavaila ble MigeedBerny MD Unavailable Unavaila ble MigeedBerny MD Unavailable Unavaila ble MigeedBerny MD Unavailable Unavaila ble MigeedBerny MD Unavailable Unavaila ble MigeedBerny MD Unavailable Unavaila ble MigeedBerny MD Unavailable Unavaila ble MigeedBerny MD Unavailable Unavaila ble Migeed, Berny Jones MD Unavailable Unavaila ble MigeedBerny MD Unavailable Unavaila ble MigeedBerny MD Unavailable Unavaila ble Migeed, Berny Jones MD Unavailable Unavaila ble Migeed, Berny Jones MD Unavailable Unavaila ble Migeed, Berny Jones MD Unavailable Unavaila ble MigeedBerny MD Unavailable Unavaila ble Migeed, Berny Jones MD Unavailable Unavaila ble Migeed, Berny Jones MD Unavailable Unavaila ble Migeed, Berny Jones MD Unavailable Unavaila ble Migeed, Berny Jones MD Unavailable Unavaila ble Migeed, Berny Jones MD Unavailable Unavaila ble Migeed, Berny Jones MD Unavailable Unavaila ble Migeed, Berny Jones MD Unavailable Unavaila ble Migeed, Berny Jones MD Unavailable Unavaila ble Migeed, Berny Jones MD Unavailable Unavaila ble Migeed, Berny Jones MD Unavailable Unavaila ble Migeed, Berny Jones MD Unavailable Unavaila ble Migeed, Berny Jones MD Unavailable Unavaila ble Migeed, Berny Jones MD Unavailable Unavaila ble MigeedBerny MD Unavailable Unavaila ble MigeedBerny MD Unavailable Unavaila ble MigeedBerny MD Unavailable Unavaila ble MigeedBerny MD Unavailable Unavaila ble MigeedBerny MD Unavailable Unavaila ble MigeedBerny MD Unavailable Unavaila ble MigeedBerny MD Unavailable Unavaila ble MigeedBerny MD Unavailable Unavaila ble MigeedBerny MD Unavailable Unavaila ble MigeedBerny MD Unavailable Unavaila ble MigeedBerny MD Unavailable Unavaila ble MigBerny bey MD Unavailable Unavaila ble MigeedBerny MD Unavailable Unavaila ble MigeedBerny MD Unavailable Unavaila ble MigBerny bey MD Unavailable Unavaila ble Abriss, Abiodun Hernandez MD Unavailable Unavailable Abriss, Abiodun Hernandez MD Unavailable Unavailable Abriss, Abiodun Hernandez MD Unavailable Unavailable Abriss, Abiodun Hernandez MD Unavailable Unavailable Abriss, Abiodun Hernandez MD Unavailable Unavailable Abriss, Abiodun Hernandez MD Unavailable Unavailable Abriss, Abiodun Hernanedz MD Unavailable Unavailable Abriss, Abiodun Hernandez MD Unavailable Unavailable Abriss, Abiodun Hernandez MD Unavailable Unavailable Abriss, Abiodun Hernandez MD Unavailable Unavailable Abriss, Abiodun Hernandez MD Unavailable Unavailable Abriss, Abiodun Hernandez MD Unavailable Unavailable Abriss, Abiodun Hernandez MD Unavailable Unavailable Abriss, Abiodun Hernandez MD Unavailable Unavailable Abriss, Abiodun Hernandez MD Unavailable Unavailable Abriss, Abiodun Hernandez MD Unavailable Unavailable Abriss, Abiodun Hernandez MD Unavailable Unavailable Abriss, Abiodun Hernandez MD Unavailable Unavailable Abriss, Abiodun Hernandez MD Unavailable Unavailable MigeedBerny MD Unavailable Unavaila ble MigeedBerny MD Unavailable Unavaila ble MigeedBerny MD Unavailable Unavaila ble MigeedBerny MD Unavailable Unavaila ble MigeedBerny MD Unavailable Unavaila ble MigeedBerny MD Unavailable Unavaila ble MigeedBerny MD Unavailable Unavaila ble MigeedBerny MD Unavailable Unavaila ble MigeedBerny MD Unavailable Unavaila ble MigeedBerny MD Unavailable Unavaila ble MigeedBerny MD Unavailable Unavaila ble MigeedBerny MD Unavailable Unavaila ble MigeedBerny MD Unavailable Unavaila ble MigeedBerny MD Unavailable Unavaila ble MigeedBerny MD Unavailable Unavaila ble MigeedBerny MD Unavailable Unavaila ble MigeedBerny MD Unavailable Unavaila ble MigeedBerny MD Unavailable Unavaila ble Migeed, Berny Jones MD Unavailable Unavaila ble MigeedBerny MD Unavailable Unavaila ble MigeedBerny MD Unavailable Unavaila ble Migeed, Berny Jones MD Unavailable Unavaila ble Migeed, Berny Jones MD Unavailable Unavaila ble Migeed, Berny Jones MD Unavailable Unavaila ble MigeedBerny MD Unavailable Unavaila ble Migeed, Berny Jones MD Unavailable Unavaila ble Migeed, Berny Jones MD Unavailable Unavaila ble Migeed, Berny Jones MD Unavailable Unavaila ble Migeed, Berny Jones MD Unavailable Unavaila ble Migeed, Berny Jones MD Unavailable Unavaila ble Migeed, Berny Jones MD Unavailable Unavaila ble Migeed, Berny Jones MD Unavailable Unavaila ble Migeed, Berny Jones MD Unavailable Unavaila ble Migeed, Berny Jones MD Unavailable Unavaila ble Migeed, Berny Jones MD Unavailable Unavaila ble Migeed, Berny Jones MD Unavailable Unavaila ble Migeed, Berny Jones MD Unavailable Unavaila ble Migeed, Berny Jones MD Unavailable Unavaila ble MigeedBerny MD Unavailable Unavaila ble MigeedBerny MD Unavailable Unavaila ble MigeedBerny MD Unavailable Unavaila ble MigeedBerny MD Unavailable Unavaila ble MigeedBerny MD Unavailable Unavaila ble MigeedBerny MD Unavailable Unavaila ble MigeedBerny MD Unavailable Unavaila ble MigeedBerny MD Unavailable Unavaila ble MigeedBerny MD Unavailable Unavaila ble MigeedBerny MD Unavailable Unavaila Berny Madrigal MD Unavailable Unavaila ble Valeria, Juan Granados PA-C Unavailable Unavailable Valeria, J Darwin PA-C Unavailable Unavailable Valeria, J Darwin PA-C Unavailable Unavailable Valeria, J Darwin PA-C Unavailable Unavailable Valeria, J Darwin PA-C Unavailable Unavailable Valeria, J Darwin PA-C Unavailable Unavailable Valeria, J Darwin PA-C Unavailable Unavailable Valeria, J Darwin PA-C Unavailable Unavailable Valeria, J Darwin PA-C Unavailable Unavailable Valeria, J Darwin PA-C Unavailable Unavailable Darwin Loaiza MD Unavailable Unavailable Darwin Loaiza MD Unavailable Unavailable Darwin Loaiza MD Unavailable Unavailable Darwin Loaiza MD Unavailable Unavailable Darwin Loaiza MD Unavailable Unavailable Darwin Loaiza MD Unavailable Unavailable Darwin Loaiza MD Unavailable Unavailable Darwin Loaiza MD Unavailable Unavailable Darwin Loaiza MD Unavailable Unavailable Darwin Loaiza MD Unavailable Unavailable Darwin Loaiza MD Unavailable Unavailable Darwin Loaiza MD Unavailable Unavailable Darwin Loaiza MD Unavailable Unavailable Darwin Loaiza MD Unavailable Unavailable Darwin Loaiza MD Unavailable Unavailable Darwin Loaiza MD Unavailable Unavailable Darwin Loaiza MD Unavailable Unavailable Darwin Loaiza MD Unavailable Unavailable Darwin Loaiza MD Unavailable Unavailable Darwin Loaiza MD Unavailable Unavailable Darwin Loaiza MD Unavailable Unavailable Darwin Loaiza MD Unavailable Unavailable Darwin Loaiza MD Unavailable Unavailable Darwin Loaiza MD Unavailable Unavailable Darwin Loaiza MD Unavailable Unavailable Darwin oLaiza MD Unavailable Unavailable Darwin Loaiza MD Unavailable Unavailable Darwin Loaiza MD Unavailable Unavailable Darwin Loaiza MD Unavailable Unavailable Darwin Loaiza MD Unavailable Unavailable Darwin Loaiza MD Unavailable Unavailable Darwin Loaiza MD Unavailable Unavailable Darwin Loaiza MD Unavailable Unavailable Darwin Loaiza MD Unavailable Unavailable Darwin Loaiza MD Unavailable Unavailable Darwin Loaiza MD Unavailable Unavailable Darwin Loaiza MD Unavailable Unavailable Darwin Loaiza MD Unavailable Unavailable Darwin Loaiza MD Unavailable Unavailable Darwin Loaiza MD Unavailable Unavailable Darwin Loaiza MD Unavailable Unavailable Darwin Loaiza MD Unavailable Unavailable Darwin Loaiza MD Unavailable Unavailable Darwin Loaiza MD Unavailable Unavailable Darwin Loaiza MD Unavailable Unavailable Darwin Loaiza MD Unavailable Unavailable Darwin Loaiza MD Unavailable Unavailable Darwin Loaiza MD Unavailable Unavailable Darwin Loaiza MD Unavailable Unavailable Darwin Loaiza MD Unavailable Unavailable Darwin Loaiza MD Unavailable Unavailable Darwin Loaiza MD Unavailable Unavailable Darwin Loaiza MD Unavailable Unavailable Darwin Loaiza MD Unavailable Unavailable IVANA, A COBY DO Unavailable Unavailable IVANA, A COBY DO Unavailable Unavailable IVANA, A COBY DO Unavailable Unavailable IVANA, A COBY DO Unavailable Unavailable IVANA, A CBOY DO Unavailable Unavailable IVANA, A COBY DO Unavailable Unavailable IVANA, A COBY DO Unavailable Unavailable IVANA, A COBY DO Unavailable Unavailable IVANA, A COBY DO Unavailable Unavailable IVANA, A COBY DO Unavailable Unavailable IVANA, A COBY DO Unavailable Unavailable IVANA, A COBY DO Unavailable Unavailable IVANA, A COBY DO Unavailable Unavailable IVANA, A COBY DO Unavailable Unavailable IVANA, A COBY DO Unavailable Unavailable IVANA, A COBY DO Unavailable Unavailable IVANA, A COBY DO Unavailable Unavailable IVANA, A COBY DO Unavailable Unavailable IVANA, A COBY DO Unavailable Unavailable IVANA, A COBY DO Unavailable Unavailable IVANA, A COBY DO Unavailable Unavailable IVANA, A COBY DO Unavailable Unavailable Re-disclosure Warning The records that [...] is protected by Article 27-F [address] the [facility] Public Health law. If you continue you may have access to information: Regarding HIV / AIDS; Provided by facilities licensed or operated by the [facility] Office of Mental Health; or Provided by the [facility] Office for People With Developmental Disabilities. If such information is present, then the following [facility] mandated warning applies: This information has been [...] law may result in a fine or halfway sentence or both. A general authorization for the release of medical or other information is NOT sufficient authorization for further disc losure. Allergies and Adverse Reactions Type Description Substance Reaction Status Data Source(s ) Propensity to adverse reactions PENICILLINS Penicillins Rash Low [facility] Low Propensity to adverse reactions OTHER Other Anaphylaxis Hig h [facility] High Propensity to adverse reactions IODINATED DIAGNOSTIC AGENTS Iodinated Diagnostic Agents Palpitations Low Active [facility] Low Food allergy SEAFOOD SEAFOOD ANAPHYLAXIS HIVES [facility] Propensity to adverse reactions PENICILLINS (CLASS) PENICILLINS (CLAS S) RASH [facility] Family History Family Member Name Family Member Gender Family Member Status Date o f Status Description Data Source(s) Unknown Male Problem [facility] ([facility]) () - age 49 Unknown Unknown Problem [facility] ([facility]) Unknown Unknown Problem [facility] ([facility], ) Unknown Unknown Problem [facility] ([facility]) Encounters Encounter Providers Location Date Indications Data Source(s ) H Attender: Karen Vu MDAdmitter: Karen larry MD [id number] 08/22/2021 06:43:00 AM EDT - 08/22/2021 04:06:[address] [facility] [place] Patient discharged. Outpatient Attender: Karen Vu MDReferrer: Karen [facility] 08/17/2021 09:23:07 AM EDT - 08/17/2021 10:57:34 AM EDT [facility] Outpatient Referrer: Karen ROBERTO.PAT 09:06:03 AM EDT - 08/17/2021 09:06:08 AM EDT [facility] Outpatient Attender: Cesar Francis PH.D., M.D. Alysia/Lucio/Nasima lima/Rhys 08/16/2021 09:45:00 AM EDT [facility] ([facility] ) Outpatient Attender: OSMEL ALVAREZ MD [facility] 08/13 02:00:00 PM EDT [facility] ([facility]) Inpatient Attender: OSMEL ALVAREZ MDAtt jose alfredo: MARIA T GALLOWAYConsultant: Gail Reyes CAT SCAN TECHNOLOGIST 08/01/2021 06:43:00 AM EDT - 08/05/2021 03:40:00 PM EDT [facility] Patient discharged. Emergency Attender: Rory Gomez MDConsultant: Gail Reyes CAT SCAN TECHNOLOGIST 07/31/2021 09:35:00 AM EDT - 07/31/2021 11:50:00 AM EDT [facility] Patient [facility]. Outpatient Attender: Ashley Hatfield/Lucio/Sai/Kip geller 07/20/2021 02:00:00 PM EDT [facility] ([facility], ) Outpatient Attender: OSMEL ALVAREZ MD [facility] 07/05 02:45:00 PM EDT [facility] ([facility]) Emergency Attender: Rory Gomez MDConsultant: Gail Reyes NP 06/29/2021 10:49:00 AM EDT - 06/29/2021 02:40:00 PM EDT [facility] Patient discharged. Outpatient Attender: Cesar Francis PH.D., M.D. Alysia/Lucio/Nasima lima/Rhys 06/27/2021 09:15:00 AM EDT [facility] ([facility]) Outpatient Attender: HUGH Eduardo/Lucio/Sai/Rhys 06/26/2021 11:00:00 AM EDT [facility] ([facility]) <td ID="encounterTypeDescriptionID0">8 M onth Follow-Up</td><td>Coby Larry DO</td><td>Cesar Hadley MD [facility]</td><td>06/15/2021</td><td>1:56PM</td><td>10/05/2020 11:59PM</td><td> <content ID="encounterDiagnosisID0-0">Cataract Senile Nuclear</content>, <content ID="encounterDiagnosisID0-1">Dry Eye Syndrome</content>, <content ID="encounterDiagnosisID0-2">Borderline Glaucoma Open Angle with Borderline Findings Both Eyes</content>, <content ID="encounterDiagnosisID0-3">Vitreous Disorders Degeneration</content></td>Outpatient Attender: COBY Lawler MD [facility] 06/15/2021 01:56:00 PM EDT - 10/05/2020 11:59:00 PM EST Cataract Senile NuclearDry Eye SyndromeV itreous Disorders DegenerationBorderline Glaucoma Open Angle with Borderline Findings Both Eyes CJ (Cesar Barrow MD [facility]) Cataract Senile Nuclear Dry Eye Syndrome Vitreous Disorders Degeneration 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 Findings Both Eyes Outpatient Attender: HUGH Eduardo/Lucio/Sai/Reindl 06/12/2021 11:30:00 AM EDT [facility] ([facility]) Outpatient Attender: BERNY VUConsultant: Gail Reyes NP 06/11/2021 08:58:00 AM EDT - 06/11/2021 09:58:00 AM EDT [facility] Outpatient Attender: OSMEL ALVAREZ MDConsultant: Gail Vicente 06/04/2021 02:51:00 PM EDT - 06/04/2021 03:51:00 PM EDT [facility] Outpatient Attender: OSMEL ALVAREZ MD [facility] 05/31 02:15:00 PM EDT [facility] ([facility]) Outpatient Referrer: Karen Vu MD 05/29/2021 02:52:2 6 PM EDT [facility] Outpatient Attender: Karen Vu MD [facility] 05/24/2021 02:45:00 PM EDT MED[facility] ([facility]) Outpatient Attender: HARINDER STEEL MDConsultant: Gail Garces NP 05/10/2021 08:52:00 AM EDT - 05/10/2021 09:52:00 AM EDT [facility] Emergency Attender: GLORIA SCHNEIDER MDConsultant: Nicole Reyes CAT SCAN TECHNOLOGIST 05/01/2021 08:44:00 PM EDT - 05/02/2021 01:45:00 AM EDT [facility] Patient discharged. Outpatient Attender: OSMEL ALVAREZ MD [facility] 04/30 02:45:00 PM EDT [facility] ([facility]) Outpatient Attender: OSMEL ALVAREZ MDConsultant: Gail Daniels P 04/25/2021 12:40:06 PM EDT [facility] Emergency Attender: TADEO RITCHIE DOConsultant: Gail Daniels P 04/21/2021 11:41:00 AM EDT - 04/21/2021 03:07:00 PM EDT [facility] Patient discharged. Outpatient Attender: OSMEL ALVAREZ MDAtt jose alfredo: GLORIA SCHNEIDER MDConsultant: Gail Reyes CAT SCAN TECHNOLOGIST 04/17/2021 09:27:00 PM EDT - 04/20/2021 01:00:00 PM EDT [facility] Patient discharged. Emergency Attender: GLORIA SCHNEIDER MDConsultant: Nicole Reyes CAT SCAN TECHNOLOGIST 04/17/2021 06:22:00 PM EDT - 04/17/2021 09:02:00 PM EDT [facility] Patient discharged. Outpatient Attender: HUGH Eduardo/Lucio/Sai/Rhys 04/17/2021 01:30:00 PM EDT [facility] ([facility], ) Outpatient Attender: OSMEL ALVAREZ MDConsultant: Gail Daniels P 04/11/2021 09:33:00 AM EDT - 04/11/2021 10:33:00 AM EDT [facility] Emergency Attender: GLORIA SCHNEIDER MDConsultant: Nicole Reyes CAT SCAN TECHNOLOGIST 04/01/2021 02:22:00 PM EDT - 04/01/2021 04:50:00 PM EDT [facility] Patient discharged. Outpatient Attender: OSMEL ALVAREZ MD [facility] 03/21 11:15:00 AM EDT [facility] ([facility]) Outpatient Attender: OSMEL ALVAREZ MDConsultant: Gail Reyes N P 03/21/2021 08:15:00 AM EDT - 03/21/2021 09:15:00 AM EDT [facility] Outpatient Attender: OSMEL ALVAREZ MD [facility] 03/16 09:45:00 AM EDT [facility] ([facility]) Outpatient Attender: OSMEL ALVAREZ MDConsultant: Gail Daniels P 03/16/2021 07:51:00 AM EDT - 03/16/2021 08:51:00 AM EDT [facility] Outpatient Attender: OSMEL ALVAREZ MD [facility] 03/15 03:00:00 PM EDT [facility] ([facility]) Outpatient Attender: OSMEL ALVAREZ MD [facility] 03/13 10:00:00 AM EDT [facility] ([facility]) Outpatient Attender: OSMEL ALVAREZ MDConsultant: Gail Reyes N P 03/13/2021 08:33:00 AM EDT - 03/13/2021 09:33:00 AM EDT [facility] Outpatient Attender: OSMEL ALVAREZ MDConsultant: Gail Reyes N P 03/08/2021 11:23:00 AM EDT - 03/08/2021 12:23:00 PM T [facility] Outpatient Attender: OSMEL ALVAREZ MD [facility] 03/08 10:15:00 AM EDT [facility] ([facility]) Outpatient Attender: HUGH Eduardo/Virden/Sai/Reindl 03/01/2021 01:30:00 PM EDT [facility] ([facility] Outpatient Attender: Ashley Hatfield/Virden/Sai/Kip ndl 02/17/2021 01:23:00 AM EDT [facility] ([facility] Outpatient Attender: Ashley Hatfield/Lucio/Sai/Kip ndl 02/16/2021 01:23:00 AM EDT [facility] ([facility] Outpatient Attender: HUGH PARNELL Alysia/Virden/Sai/Reindl 02/14/2021 01:23:00 AM EDT [facility] ([facility] Outpatient Attender: HUGH PARNELL Alysia/Virden/Sai/Reindl 02/13/2021 01:23:00 AM EDT [facility] ([facility] Outpatient Attender: HUGH PARNELL Alysia/Virden/Sai/Reindl 02/11/2021 01:23:00 AM EDT [facility] ([facility] Outpatient Attender: HUGH PARNELL Alysia/Virden/Sai/Reindl 02/10/2021 01:23:00 AM EDT [facility] ([facility] Outpatient Attender: HUGH WHITEHEADMANAV SCHMITZ Alysia/Virden/Sai/Reindl 02/09/2021 01:23:00 AM EDT [facility] ([facility] Outpatient Attender: Victoriano Hatfield/Virden/Sai/R eindl 02/08/2021 01:23:00 AM EDT [facility] ([facility] Outpatient Attender: Victoriano Hatfield/Virden/Sai/R eindl 02/06/2021 01:23:00 AM EDT [facility] ([facility] Outpatient Attender: [facility] 01/31/2021 05:5 0:00 PM EDT [facility] Emergency Attender: MARIA T Tabaresant: Gail Vicente 01/31/2021 05:29:00 PM EDT - 01/31/2021 06:30:00 PM EDT [facility] Patient discharged. Outpatient Attender: HUGH PARNELL DO Alysia/Virden/Sai/Reindl 01/30/2021 01:00:00 PM EDT [facility] ([facility] Outpatient Attender: OSMEL ALVAREZ MD [facility] 01/29 02:45:00 PM EDT [facility] ([facility]) Outpatient Attender: David Maldonado MD Alysia/Virden/Sai/Re indl 01/18/2021 11:15:00 AM EDT [facility] ([facility] Outpatient Attender: HUGH PARNELL DO Alysia/Virden/Sai/Reindl 01/17/2021 01:00:00 PM EDT [facility] ([facility] Outpatient Attender: Ashley Riveraang/Virden/Sai/Kip ndl 12/26/2020 12:23:00 AM EST [facility] ([facility] Outpatient Attender: Ashley Hatfield/Virden/Sai/Kip ndl 12/25/2020 12:23:00 AM EST [facility] ([facility] Outpatient Attender: Ashley Hatfield/Virden/Sai/Kip ndl 12/24/2020 12:23:00 AM EST [facility] ([facility] Outpatient Attender: [facility] 12/20/2020 01:3 9:[address] [facility] Inpatient Attender: OSMEL ALVAREZ MDAtt jose alfredo: MARIA T GALLOWAYConsultant: Gail Reyes NP 12/20/2020 01:00:00 PM EST - 12/23/2020 12:15:00 PM [facility] Patient discharged. Outpatient Attender: [id number] DAYSI MOSLEY DOConsultant : Gail Reyes NP 12/08/2020 12:28:00 PM EST - 12/08/2020 01:28:00 PM [facility] Outpatient Attender: Gail Jeffrieseferrer: Gail Reyes NP 12/04/2020 10:49:00 AM EST - 12/04/2020 01:30:[address] [facility] Inpatient Attender: Evelyn rodriguez FNPAttender: Darwin REA CConsultant: Gail Reyes NP 11/24/2020 02:59:00 PM EST - 11/28/2020 02:30:00 PM [facility] Patient discharged. Outpatient Attender: [facility] 11/24/2020 11:1 5:00 AM EST [facility] Outpatient Attender: Cristin barry 11/10/2020 03:00:00 PM EST [facility] ([facility]) Outpatient Attender: OSMEL ALVAREZ MD [facility] 11/07 09:45:00 AM EST [facility] ([facility]) Outpatient Attender: [id number] [employer] CORDOVADHU DOConsultant : Gail Reyes NP 10/12/2020 08:53:00 AM EST - 10/12/2020 09:53:00 AM EST [facility] Patient discharged. <td ID="encounterTypeDescriptionID1">TRI AGE NON URGENT</td><td>Coby Larry DO</td><td>Cesar Hadley MD [facility]</td><td>10/05/2020</td><td>9:19AM</td><td>10:07AM</td><td><content ID="encounterDiagnosisID1-0">Transient Ischemic Attack (Tia)</content></td>Outpatient Attender: COBY Lawler MD [facility] 10/05/2020 09:19:00 AM EST - 10/05/2020 10:07:00 AM ES T Transient Ischemic Attack (Tia)Transient Ischemic Attack (Tia)Transient Ischemic Attack (Tia) CJ (Cesar Barrow MD [facility]) Transient Ischemic Attack (Tia) Transient Ischemic Attack (Tia) Transient Ischemic Attack (Tia) Outpatient Attender: OSMEL ALVAREZ MD [facility] 10/03 08:15:00 AM EST [facility] (Osmel Alvarez MD) Outpatient Attender: OSMEL ALVAREZ MDA jose alfredo: BEL CARLISLE MDConsultant: Gail Reyes NP 09/27/2020 05:50:00 PM EST - 09/28/2020 02:54:00 PM [facility] Patient discharged. Outpatient Attender: HARINDER STEEL MDConsultant: Gail Garces NP 09/05/2020 12:32:00 PM EST - 09/05/2020 01:32:00 PM EST [facility] Outpatient Attender: OSMEL ALVAREZ MD [facility] 08/29 11:30:00 AM EDT [facility] (Osmel Alvarez MD) Outpatient Attender: HARINDER STEEL MDConsultant: Gail Garces NP 08/29/2020 09:44:00 AM EDT - 08/29/2020 10:44:00 AM EDT [facility] Outpatient Attender: OSMEL ALVAREZ MD [facility] 08/22 11:15:00 AM EDT [facility] (Osmel Alvarez MD) Outpatient Attender: David Hatfield/Lucio/Sai/Re indl 08/17/2020 01:00:00 PM EDT [facility] ([facility] Outpatient Attender: OSMEL ALVAREZ MDAtt jose alfredo: ROXIE FLORES MDConsultant: Gail Reyes NP 08/15/2020 10:38:00 AM EDT - 08/15/2020 11:38:00 AM EDT [facility] Outpatient Attender: OSMEL ALVAREZ MD [facility] 08/15 09:15:00 AM EDT [facility] (Osmel Alvarez MD) Inpatient Attender: OSMEL Jacobs jose alfredo: SHAUNA JUNIOR MDConsultant: Gail Reyes NP 08/05/2020 08:23:00 PM EDT - 08/07/2020 11:37:00 AM EDT [facility] Patient discharged. Outpatient Attender: HARINDER STEEL MDConsultant: Gail Garces NP 08/01/2020 11:12:00 AM EDT - 08/01/2020 12:12:00 PM EDT [facility] Immunizations Vaccine Date Status Description Data Source(s) COVID-19 VACCINE Moderna 12/04/2020 12:00:00 AM EST completed [facility] Vaccine Series Complete: YESThis Data wa s Submitted to [facility] Via [facility]. COVID-19 VACCINE Moderna 10/30/2020 12:00:00 AM EST completed [facility] Vaccine Series Complete: NOThis Data was Submitted to [facility] Via [facility]. IIV3. This is one of two codes replacing CVX 15, which is being retired. 08/25/2020 12:00:00 AM EDT completed influenza vaccine, inactivated [facility] INFLUENZA VIRUS VACCINE QUADRIVAL (6 MOS AND UP)/PF 08/25/2020 12:00:00 AM EDT completed [facility] Medications Medication Brand Name Start Date Product Form Dose Route Admi nistrative Instructions Pharmacy Instructions Status Indications Reaction Description Data Source(s) normal saline flush 0.9 % injection 3 mL [id number] 08/22/2021 02:00:00 PM EDT 3 mL Intravenous active 3 mL , Intravenous, Every 8 hours (scheduled), First dose on Fri08/22/21 at 1400, PACU (only)
flush per protocol, D/C Main IV fluid if appropriate
[facility] Medication administered onsite ondansetron (ZOFRAN) injection 4 mg [id number] 08/22/2021 11:05:5 7 AM EDT 4 mg Intravenous completed 4 mg, In travenous, Once as needed, nausea, vomiting, Starting on Fri08/22/21 at 1105, For 1 dose, PACU (only)
If not given in last 4 hours
[facility] Medication administered onsite fentaNYL Citrate (PF) (SUBLIMAZE) injection 25 mcg [id number] 08/22/2021 11:05:57 AM EDT 25 ug Intravenous active 25 mcg, Intravenous, Every 5 min PRN, moderate pain (4 to 6), Starting on Fri08/22/21 at 1105, For 5 doses, PACU (only) [facility] Medication administered onsite Albuterol 0.833 MG/ML / Ipratropium Brom erin 0.167 MG/ML Inhalant Solution ipratropium-albuterol (DUO-NEB) 0.5-2.5 mg/mL nebulizer solution 3 mL ipratropium-albuterol (DUO-NEB) 0.5-2.5 mg/mL nebulizer solution 3 mL 08/22/2021 11:05:57 AM EDT 3 mL Inhalation active 3 mL, Inhalation, Once as needed, shortness of breath, Starting on Fri08/22/21 at 1105, For 1 dose, PACU (only) [facility] Medication administered onsite 10 ML Atropine Sulfate 0.1 MG/ML Prefill ed Syringe atropine sulfate injection 0.5 mg atropine sulfate injection 0.5 mg 08/22/2021 11:05:56 AM EDT 0.5 mg active 0.5 mg, Intrave nous Push, Every 5 min PRN, other, As needed, for heart rate less than 60 BPM and the patient is hemodynamically unstable and/or SBP is less than 90mmHg, Starting on Fri08/22/21 at 1105, For 1 day, PACU (only)
Not to exceed a total of 3 mg or 0.04 mg/kg. Max of 6 doses
[facility] Medication administered onsite protamine injection [id number] 08/22/2021 10:54:14 AM EDT active As needed, Starting on Fri08/22/21 at 1054, Intra-Pro cedure [facility] Medication administered onsite 1 ML heparin sodium, porcine 1000 UNT/ML Injection hep richar (porcine) injection heparin (porcine) injection 08/22/2021 09:44:38 AM EDT active As needed, Starting on Fri08/22/21 at 0944, Intra-Procedure [facility] Medication administered onsite normal saline flush 0.9 % injection 3 mL [id number] 08/22/2021 08:00:00 AM EDT 3 mL Intravenous active 3 mL , Intravenous, Every 8 hours (scheduled), First dose on Fri08/22/21 at 0800, Pre-op
Rapid push positive pressure flushing shall be performed with a 10 cc normal saline syringe to check the PATENCY of a PIV site prior to any infusion therapy initiation unless resistance is met.
[facility] Medication administered onsite normal saline flush 0.9 % injection 3 mL [id number] 08/22/2021 08:00:00 AM EDT 3 mL Intravenous active 3 mL , Intravenous, Every 8 hours (scheduled), First dose on Fri08/22/21 at 0800, Pre-op
Rapid push positive pressure flushing shall be performed with a 10 cc normal saline syringe to check the PATENCY of a PIV site prior to any infusion therapy initiation unless resistance is met.
[facility] Medication administered onsite apixaban 5 MG Oral Tablet [Eliquis] Eliquis 08/13/2021 12:00:00 AM E DT ORAL active [facility] (Osmel Alvarez MD) Albuterol 0.83 MG/ML Inhalant Solution Albuterol Sulfate 0 06/26/2021 12:00:00 AM EDT active [facility] ([facility], ) 24 HR Diltiazem Hydrochloride 180 MG Extended Release Oral Capsule [Cardizem] Cardizem CD 06/11/2021 12:00:00 AM EDT ORAL active [facility] (Osmel Alvarez MD) Furosemide 20 MG Oral Tablet Furosemide 05/31/2021 12:00:00 AM EDT active [facility] (Osmel Alvarez MD) Potassium Chloride 10 MEQ Extended Release Oral Capsule Pota ssium Chloride ER 05/31/2021 12:00:00 AM EDT active [facility] (Osmel Alvarez MD) Ciprofloxacin 500 MG Oral Tablet [Cipro] Cipro 05/14/2021 12:00: 00 AM EDT ORAL completed [facility] ([facility], ) Tobramycin 40 MG/ML Injectable Solution Tobramycin Sulfate 05/04/2021 12:00:00 AM EDT completed [facility] ([facility], ) Tobramycin 75 MG/ML Inhalant Solution Tobramycin 05/03/2021 12:00:00 AM EDT completed [facility] ([facility], ) Levofloxacin 500 MG Oral Tablet Levofloxacin 04/30/2021 12:00:00 AM E DT ORAL completed [facility] ([facility], ) dronedarone 400 MG Oral Tablet [Multaq] Multaq 04/11/2021 12:00:0 0 AM EDT ORAL active [facility] (Chantel Alvarez MD) Levofloxacin 500 MG Oral Tablet Levofloxacin 03/26/2021 12:00:00 AM E DT ORAL completed [facility] ([facility], ) ivabradine 5 MG Oral Tablet [Corlanor] Corlanor 03/13/2021 12:00:00 AM EDT ORAL completed [facility] (Chantel Alvarez MD) ferrous sulfate 325 MG Oral Tablet Ferrous Sulfate 03/13/2021 12:00 :00 AM EDT ORAL active [facility] (Osmel Alvarez MD) Diltiazem Hydrochloride 30 MG Oral Tablet [Cardizem] Cardize m 03/09/2021 12:00:00 AM EDT ORAL completed [facility] (Osmel Alvarez MD) Diltiazem Hydrochloride 30 MG Oral Tablet Diltiazem HCL 03/02/2021 12:00:00 AM EDT active [facility] (Chantel Alvarez MD) Fluconazole 150 MG Oral Tablet Fluconazole 01/30/2021 12:00:00 AM EDT completed [facility] ([facility]) Levofloxacin 500 MG Oral Tablet Levofloxacin 01/30/2021 12:00:00 AM E DT ORAL completed [facility] ([facility]) Itraconazole 100 MG Oral Capsule Itraconazole 01/30/2021 12:00:00 AM EDT ORAL completed [facility] ([facility]) Prednisone 20 MG Oral Tablet Prednisone 01/29/2021 12:00:00 AM EDT completed [facility] (Osmel Alvarez MD) Furosemide 40 MG Oral Tablet Furosemide 01/29/2021 12:00:00 AM EDT ORAL completed [facility] (Osmel Alvarez MD) Prednisone 10 MG Oral Tablet Prednisone 01/22/2021 12:00:00 AM EDT ORAL completed [facility] ([facility]) Aspirin 81 MG Delayed Release Oral Tablet Aspirin 81 2020 12:00:00 AM EST ORAL completed [facility] (Osmel Alvarez MD) Magnesium Oxide 200 MG Oral Tablet Mag-200 12/12/2020 12:00:00 AM EST completed [facility] (Osmel Alvarez MD) doxycycline hyclate 100 MG Oral Capsule Doxycycline Hyclate 11/10/2020 12:00:00 AM EST active [facility] ([facility]) 30 ACTUAT fluticasone furoate 0.2 MG/ACT UAT / vilanterol 0.025 MG/ACTUAT Dry Powder Inhaler [Breo] Breo Ellipta 11/07/2020 12:00:00 AM EST active [facility] (Osmel white MD) Aspirin 81 MG Delayed Release Oral Table t Adult Aspirin EC Low Strength 81 MG Oral Tablet Delayed Release Adult Aspirin EC Low Strength 81 MG Oral Tablet Delayed Release 10/05/2020 12:00:00 AM EST 1 ac tive aspirin 81 MG Delayed Release Oral Tablet CJ (Cesar Barrow MD [facility]) 30 ACTUAT fluticasone furoate 0.1 MG/ACT UAT / vilanterol 0.025 MG/ACTUAT Dry Powder Inhaler [Breo] Breo Ellipta 100-25 MCG/INH Inhalation Aerosol Powder Breath Activated Breo Ellipta 100-25 MCG/INH Inhalation A erosol Powder Breath Activated 10/05/2020 12:00:00 AM EST active 30 ACTUAT fluticasone furoate 0.1 MG/ACTUAT / vilanterol 0.025 MG/ACTUAT Dry Powder Inhaler [Breo] CJ (Cesar Barrow MD [facility]) Potassium 10 mg Oral Tablet Potassium 10 mg Oral Tablet 01/2020 12:00:00 AM EST 1 active Potassium GREENWA Y (Cesar Barrow MD [facility]) Diltiazem 180 mg Oral Tablet Diltiazem 180 mg Oral Tablet 12:00:00 AM EST 1 active Diltiazem NOEMÍ Y (Cesar Barrow MD [facility]) Magnesium 1000 MG CAP Oral Capsule Magnesium 1000 MG CAP Ora l Capsule 10/05/2020 12:00:00 AM EST 1 active Magnesi um 1000 MG CAP CJ (Cesar Barrow MD [facility]) rivaroxaban 10 MG Oral Tablet [Xarelto] Xarelto 10 MG Oral Tablet Xarelto 10 MG Oral Tablet 10/05/2020 12:00:00 AM EST 1 active rivaroxaban 10 MG Oral Tablet [Xarelto] CJ (Cesar Barrow MD [facility]) Pantoprazole 40 MG Oral Tablet Pantoprazole 40 MG Oral Table t 10/05/2020 12:00:00 AM EST 1 active Pantopra zole CJ (Cesar Barrow MD [facility]) Folic Acid 0.8 MG Oral Tablet Folic Acid 800 MCG Oral Tablet Folic Acid 800 MCG Oral Tablet 10/05/2020 12:00:00 AM EST 1 active folic acid 0.8 MG Oral Tablet CJ (Cesar Barrow MD [facility]) 30 ACTUAT fluticasone furoate 0.2 MG/ACT UAT / vilanterol 0.025 MG/ACTUAT Dry Powder Inhaler [Breo] Breo Ellipta 09/13/2020 12:00:00 AM EST OR AL active [facility] ([facility], ) Potassium Chloride 10 MEQ Extended Release Oral Tablet Potassium Chloride Jennifer ER 08/15/2020 12:00:00 AM EDT ORAL completed [facility] (Osmel Alvarez MD) Furosemide 20 MG Oral Tablet Furosemide 08/15/2020 12:00:00 AM EDT active [facility] (Osmel Alvarez MD) Magnesium 500 MG Oral Capsule Magnesium 500 MG Oral Capsule 06/15/2020 12:00:00 AM EDT 1 aborted Magnesium GREENW AY (Cesar Barrow MD [facility]) 60 ACTUAT Budesonide 0.16 MG/ACTUAT / fo rmoterol fumarate 0.0045 MG/ACTUAT Metered Dose Inhaler [Symbicort] Symbicort 160-4.5 MCG/ACT Inhalation Aerosol Symbicort 160-4.5 MCG/ACT Inhalation Aerosol 06/15/2020 12:00:00 AM EDT 1 aborted 60 ACTUAT budeso nide 0.16 MG/ACTUAT / formoterol fumarate 0.0045 MG/ACTUAT Metered Dose Inhaler [Symbicort] CJ (Cesar Barrow MD [facility]) rivaroxaban 20 MG Oral Tablet [Xarelto] Xarelto 20MG O ral Tablet Xarelto 20MG Oral Tablet 06/12/2018 12:00:00 AM EDT aborte d rivaroxaban 20 MG Oral Tablet [Xarelto] CJ (Cesar Barrow MD [facility]) cetirizine hydrochloride 10 MG Oral Tabl et [Zyrtec] ZyrTEC Allergy 10MG Oral Tablet ZyrTEC Allergy 10MG Oral Tablet 02/03/2017 12:00:00 AM EDT 1 aborted cetirizine hydrochloride 10 MG O ral Tablet [Zyrtec] CJ (Cesar Barrow MD [facility]) pantoprazole 20 MG Delayed Release Oral Tablet Pantoprazole Sodium 20MG Oral Tablet, enteric coated Pantoprazole Sodium 20MG Oral Tablet, enteric coated 02/03/2017 12:00:00 AM EDT 1 aborted pantoprazole 20 MG Delayed Release Oral Tablet CJ (Cesar Barrow MD [facility]) Insurance Providers Payer name Policy type / Coverage type Policy ID Covered alliance party ID Covered alliance party's relationship to panchal Policy Panchal Plan Information [employer] [place] 306/806 [id number] SP [id number] [employer] [place] 306/806 [id number] SP [id number] EXCELLUS C [id number] Self [id number] [employer] [place] Individual Policy 0 [id number] Self 0 [employer] [place] Individual Policy 0 [id number] Self 0 [employer] [place] Individual Policy 0 [id number] Self 0 [employer] [place] Individual Policy 0 [id number] Self 0 [employer] [place] Individual Policy 0 [id number] Self 0 [employer] [place] Individual Policy 0 [id number] Self 0 [employer] [place] Individual Policy 0 [id number] Self 0 [employer] [place] Individual Policy 0 [id number] Self 0 [employer] [place] Individual Policy 0 [id number] Self 0 [place] 302/307 [id number] SP [id number] EXCELLUS C [id number] Self [id number] [place] PPO 302/307 [id number] SP [id number] [employer] [place] Individual Policy 0 [id number] Self 0 [place] PPO 302/307 [id number] SP [id number] [employer] [place] Individual Policy 0 [id number] Self 0 [employer] [place] Individual Policy 0 [id number] Self 0 [employer] [place] Individual Policy 0 [id number] Self 0 [employer] [place] Individual Policy 0 [id number] Self 0 [employer] [place] Individual Policy 0 [id number] Self 0 [employer] [place] Individual Policy 0 [id number] Self 0 [employer] [place] Individual Policy 0 [id number] Self 0 [employer] [place] Individual Policy 0 [id number] Self 0 [employer] [place] Individual Policy 0 [id number] Self 0 [employer] [place] Individual Policy 0 [id number] Self 0 [employer] [place] Individual Policy 0 [id number] Self 0 [employer] [place] Individual Policy 0 [id number] Self 0 [employer] [place] Individual Policy 0 [id number] Self 0 [employer] [place] Individual Policy 0 [id number] Self 0 [employer] [place] Individual Policy 0 [id number] Self 0 [employer] [place] Individual Policy 0 [id number] Self 0 [employer] [place] Individual Policy 0 [id number] Self 0 [employer] [place] Individual Policy 0 [id number] Self 0 [employer] [place] Individual Policy 0 [id number] Self 0 [employer] [place] Individual Policy 0 [id number] Self 0 [employer] [place] Individual Policy 0 [id number] Self 0 [employer] [place] Individual Policy 0 [id number] Self 0 [employer] [place] Individual Policy 0 [id number] Self 0 [employer] [place] Individual Policy 0 [id number] Self 0 [employer] [place] Individual Policy 0 [id number] Self 0 BCBS of [facility] Individual Policy 0 [id number] Self 0 BCBS of [facility] [place] Individual Policy 0 [id number] Self 0 BCBS of [facility] Individual Policy 0 [id number] Self 0 BCBS of [facility] Individual Policy 0 [id number] Self 0 BCBS of [facility] Individual Policy 0 [id number] Self 0 BCBS of [facility] Individual Policy 0 [id number] Self 0 BCBS of [facility] Individual Policy 0 [id number] Self 0 EXCELLUS BCBS [id number] BCBS 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 [id number] BCBS of [facility] Other 0 [id number] F amily Dependent Jose Solomon 0 EXCELLUS BCBS [id number] BCBS of [facility] Other 0 [id number] F amily Dependent Jose Solomon 0 BCBS of [facility] Other 0 [id number] F amily Dependent Jose Solomon 0 BCBS of [facility] Other 0 [id number] F amily Dependent Jose Solomon 0 MEDICARE [id number] Victorina [id number] A90 MEDICARE [id number] INSURANCE COVID-19 COVID Victorina C OVID INSURANCE COVID-19 [id number] BCBS 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 [id number] MEDICARE PART A -I/P [id number] 18 [id number] BLUE CROSS BLUE SHIELD -I/P [id number] 01 [id number] MEDICARE -RECURRING [id number] 18 [id number] BLUE [employer]OSS BLUE SHIELD FEDERAL-RECURRING [id number] 01 [id number] MEDICARE PART A -O/P [id number] 18 [id number] BLUE CROSS BLUE SHIELD FEDERAL -O/P [id number] 01 [id number] BCBS 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 [id number] Medicare Part B of [facility] Other 0 [id number] Self 0 Medicare Part B of [facility] Other 0 [id number] Self 0 BLUE CROSS BLUE SHIELD -PHYSICIAN [id number] BLUE CROSS BLUE SHIELD FEDERAL -PHYS [id number] 01 [id number] MEDICARE C [id number] S [id number] BS [place] FEDERAL B [id number] P [id number] Medicare Part B of [facility] Other 0 [id number] Self 0 BLUE CROSS BLUE SHIELD-O/P [id number] BLUE CROSS BLUE SHIELD -O/P [id number] 01 [id number] BLUE CROSS BLUE SHIELD -O/P 123 [id number] EXCELLUS [facility] B [id number] S [id number] [facility] FEDERAL EM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 [id number] [facility] Other 0 [id number] Self 0 BS [place] [employer] [id number] Self [id number] BS [place] [employer] [id number] Self [id number] BS [place] [employer] [id number] Self [id number] BS [place] [employer] [id number] Self [id number] BS [place] [employer] [id number] Self [id number] [facility] Health Maintenance Organization (O) [id number] [facility] Maintenance Organization (O) [id number] Self [id number] [facility] [id number] Self V [id number] [facility] [id number] [facility] Health Maintenance Organization ([facility] [id number] [facility] Maintenance [facility] ([facility]) [id number] Self [id number] [facility] B [id number] S V [id number] BC/BS Of [facility] [id number] Self [facility] BLUE SHIELD-O/P [id number] 18 [id number] MEDICARE [id number] SP [id number] Problems, Conditions, and Diagnoses Code Display Name Description Problem Type Effective Dates Data Source(s) I48.0 Paroxysmal atrial fibrillation Paroxysmal atrial fibri llation Diagnosis 08/22/2021 06:43:00 AM EDT [facility] U07.1 COVID-19 COVID-19 Diagnosis 08/17/2021 09:06:03 AM ED T [facility] [id number] Personal history of transien t ischemic attack (TIA), and cerebral infarction without residual deficits Personal history of transient ischemic attack (TIA), and cerebral infarction without residual deficits Diagnosis 08/01/2021 06:43:00 AM EDT [facility] I110 Hypertensive heart disease with heart fa ilure Hypertensive heart disease with heart failure Diagnosis 08/01/2021 06:43:00 AM [facility] W23211 Personal history of other venous thrombo sis and embolism Personal history of other venous thrombosis and embolism Diagnosis 08/01/2021 06:43:00 AM [facility] I509 Heart failure, unspecified Heart failure, unspecified Diagnosis 08/01/2021 06:43:00 AM [facility] C23243 Personal history of nicotine dependence Personal history of nicotine dependence Diagnosis 08/01/2021 06:43:00 AM [facility] N40741 Personal history of other malignant neop lasm of bronchus and lung Personal history of other malignant neoplasm of bronchus and lung Diagnosis 08/01/2021 06:43:00 AM [facility] D649 Anemia, unspecified Anemia, unspecified Diagnosis 0 08/01/2021 06:43:00 AM [facility] [id number] Personal history of pulmonary embolism P ersonal history of pulmonary embolism Diagnosis 08/01/2021 06:43:00 AM [facility] J449 Chronic obstructive pulmonary disease, u nspecified Chronic obstructive pulmonary disease, unspecified Diagnosis 08/01/2021 06:43:00 AM EDT [facility] C7951 Secondary malignant neoplasm of bone Secondary m alignant neoplasm of bone Diagnosis 08/01/2021 06:43:00 AM [facility] I480 Paroxysmal atrial fibrillation Paroxysmal atrial fibri llation Diagnosis 08/01/2021 06:43:00 AM [facility] 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 longterm (current) use of anticoagulants Diagnosis 07/31/2021 09:35:00 AM [facility] C801 Malignant (primary) neoplasm, unspecifie d Malignant (primary) neoplasm, unspecified Diagnosis 07/31/2021 09:35:00 AM [facility] R0789 Other chest pain Other chest pain Diagnosis 07/31/2021 09 :35:00 AM [facility] 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 Anemia in neoplastic dise ase Diagnosis 06/29/2021 10:49:00 AM [facility] C3490 Malignant neoplasm of unspecified part o f unspecified bronchus or lung Malignant neoplasm of unspecified part of unspecified bronchus or lung Diagnosis 06/29/2021 10:49:00 AM EDT [facility] R002 Palpitations Palpitations Diagnosis 06/29/2021 10:49:00 A M EDT [facility] [id number] Encounter for preprocedural cardiovascul ar examination Encounter for preprocedural cardiovascular examination Diagnosis 06/11/2021 08:58:00 AM EDT [facility] R2242 Localized swelling, mass and lump, left lower limb Localized swelling, mass and lump, left lower limb Diagnosis 06/04/2021 02:51:00 PM EDT [facility] [id number] Pain in left hip Pain in left hip Diagnosis 05/10/2021 08 :52:00 AM EDT [facility] R00733 Pain in right hip Pain in right hip Diagnosis 05/10/2021 08:52:00 AM EDT [facility] R102 Pelvic and perineal pain Pelvic and perineal pain Diag nosis 05/10/2021 08:52:00 AM EDT [facility] Z8701 Personal history of pneumonia (recurrent ) Personal history of pneumonia (recurrent) Diagnosis 05/01/2021 08:44:00 PM EDT [facility] [id number] Personal history of malignant neoplasm o f bone Personal history of malignant neoplasm of bone Diagnosis 05/01/2021 08:44:00 PM EDT [facility] R110 Nausea Nausea Diagnosis 05/01/2021 08:44:00 PM ED T [facility] I10 Essential (primary) hypertension Essential (primary) h ypertension Diagnosis 05/01/2021 08:44:00 PM EDT [facility] E8342 Hypomagnesemia Hypomagnesemia Diagnosis 05/01/2021 08:44: 00 PM EDT [facility] J159 Unspecified bacterial pneumonia Unspecified bacterial pneumonia Diagnosis 05/01/2021 08:44:00 PM EDT [facility] R531 Weakness Weakness Diagnosis 04/26/2021 12:52:00 PM ED T [facility] C3432 Malignant neoplasm of lower lobe, left b ronchus or lung Malignant neoplasm of lower lobe, left bronchus or lung Diagnosis 04/21/2021 11:41:00 AM EDT [facility] R000 Tachycardia, unspecified Tachycardia, unspecified Diag nosis 04/21/2021 11:41:00 AM EDT [facility] Z1152 ENCOUNTER FOR SCREENING FOR COVID-19 ENCOUNTER F OR SCREENING FOR COVID-19 Diagnosis 04/17/2021 09:27:00 PM EDT [facility] K219 Gastro-esophageal reflux disease without esophagitis Gastro-esophageal reflux disease without esophagitis Diagnosis 04/17/2021 09:27:00 PM ED T [facility] I2510 Atherosclerotic heart diseas e of [place] coronary artery without angina pectoris Atherosclerotic heart disease of [place] coronary artery without angina pectoris Diagnosis 04/17/2021 09:27:00 PM EDT [facility] I4891 Unspecified atrial fibrillation Unspecified atrial fib rillation Diagnosis 04/17/2021 09:27:00 PM EDT [facility] Z6834 Body mass index [BMI] 34.0-34.9, adult B rhiannon mass index [BMI] 34.0-34.9, adult Diagnosis 04/17/2021 06:22:00 PM EDT [facility] E669 Obesity, unspecified Obesity, unspecified Diagnosis 04/17/2021 06:22:00 PM EDT [facility] E119 Type 2 diabetes mellitus without complic ations Type 2 diabetes mellitus without complications Diagnosis 04/11/2021 09:33:00 AM EDT [facility] E876 Hypokalemia Hypokalemia Diagnosis 04/01/2021 02:22:00 PM EDT [facility] E039 Hypothyroidism, unspecified Hypothyroidism, unspecifie d Diagnosis 03/16/2021 07:51:00 AM EDT [facility] R918 Other nonspecific abnormal finding of tony ng field Other nonspecific abnormal finding of lung field Diagnosis 03/13/2021 08:33:00 AM EDT [facility] N390 Urinary tract infection, site not specif ied Urinary tract infection, site not specified Diagnosis 03/08/2021 11:23:00 AM EDT [facility] [id number] CONTACT WITH AND SUSPECTED EXPOSURE TO C OVID-19 CONTACT WITH AND SUSPECTED EXPOSURE TO COVID-19 Diagnosis 01/31/2021 05:29:00 PM EDT [facility] Z9221 Personal history of antineoplastic chemo therapy Personal history of antineoplastic chemotherapy Diagnosis 01/31/2021 05:29:00 PM EDT 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 R05 Cough Cough Diagnosis 01/31/2021 05:29:[address] [facility] Z8616 PERSONAL HISTORY OF COVID-19 PERSONAL HISTORY OF COVID -19 Diagnosis 12/20/2020 01:00:00 PM [facility] J9819 Other pulmonary collapse Other pulmonary collapse Diag nosis 12/20/2020 01:00:00 PM [facility] J189 Pneumonia, unspecified organism Pneumonia, unspecified organism Diagnosis 12/20/2020 01:00:00 PM [facility] R911 Solitary pulmonary nodule Solitary pulmonary nodule Di agnosis 11/24/2020 02:59:00 PM [facility] Z9981 Dependence on supplemental oxygen Dependence on supplemental oxygen Diagnosis 11/24/2020 02:59:00 PM [facility] Z923 Personal history of irradiation Personal history of ir radiation Diagnosis 11/24/2020 02:59:00 PM [facility] J440 Chronic obstructive pulmonar y disease with (acute) lower respiratory infection Chronic obstructive pulmonary disease wi th (acute) lower respiratory infection Diagnosis 11/24/2020 02:59:00 PM [facility] J441 Chronic obstructive pulmonary disease wi th (acute) exacerbation Chronic obstructive pulmonary disease with (acute) exacerbation Diagnosis 11/24/2020 02:59:00 PM [facility] J1282 PNEUMONIA DUE TO CORONAVIRUS DISEASE 201 9 PNEUMONIA DUE TO CORONAVIRUS DISEASE 2019 Diagnosis 11/24/2020 02:59:00 PM [facility] U071 COVID-19 COVID-19 Diagnosis 11/24/2020 02:59:00 PM [facility] N281 Cyst of kidney, acquired Cyst of kidney, acquired Diag nosis 10/12/2020 08:53:00 AM [facility] N179 Acute kidney failure, unspecified Acute kidney f ailure, unspecified Diagnosis 10/12/2020 08:53:00 AM [facility] G459 Transient cerebral ischemic attack, unsp ecified Transient cerebral ischemic attack, unspecified Diagnosis 09/27/2020 05:50:00 PM [facility] D696 Thrombocytopenia, unspecified Thrombocytopenia, unspec ified Diagnosis 08/05/2020 08:23:00 PM [facility] F419 Anxiety disorder, unspecified Anxiety disorder, unspec ified Diagnosis 08/05/2020 08:23:00 PM [facility] C3491 Malignant neoplasm of unspecified part o f right bronchus or lung Malignant neoplasm of unspecified part of right bronchus or lung Diagnosis 08/01/2020 11:12:00 AM [facility] H90.3 Sensorineural hearing loss, bilateral Se nsorineural hearing loss, bilateral Problem 08/16/2021 12:00:00 AM EDT [facility] ([facility], ) J47.9 Bronchiectasis Bronchiectasis Problem 07/20/2021 12:00: 00 AM EDT [facility] ([facility], ) H91.92 Hearing loss Hearing loss Problem 06/27/2021 12:00:00 A M EDT [facility] ([facility], ) H61.21 Impacted cerumen Impacted cerumen Problem 06/27/2021 12 :00:00 AM EDT [facility] ([facility], ) J47.9 Bronchiectasis Bronchiectasis Problem 06/26/2021 12:00: 00 AM EDT [facility] ([facility], ) Z85.118 History of malignant neoplasm of bronchu s History of malignant neoplasm of bronchus Problem 06/12/2021 12:00:00 AM EDT [facility] ([facility], ) I31.3 Disorder of pericardium Disorder of pericardium Proble m 06/12/2021 12:00:00 AM EDT [facility] ([facility], ) [id number] Essential hypertension Essential hypertension Problem 05/23/2021 12:00:00 AM EDT [facility] ([facility]) M25.552 Arthralgia of the pelvic region and thig h Arthralgia of the pelvic region and thigh Problem 03/01/2021 12:00:00 AM EDT [facility] ([facility], ) [id number] Transient ischemic attack (disorder) Transient I schemic Attack (Tia) Problem 10/05/2020 12:00:00 AM EST CJ (Cesar sanchez MD [facility]) [id number] Transient ischemic attack (disorder) Transient I schemic Attack (Tia) Problem 10/05/2020 12:00:00 AM EST CJ (Cesar sanchez MD [facility]) [id number] Transient ischemic attack (disorder) Transient I schemic Attack (Tia) Problem 10/05/2020 12:00:00 AM EST CJ (Cesar sanchez MD [facility]) Surgeries/Procedures Procedure Description Date Indications Data Source(s) ECHO TTHRC R-T 2D W/WOM-MODE COMPL SPEC&COLR DOP <td>E CHOCARDIOGRAM TRANSTHORACIC</td><td>Routine</td><td>08/22/2021 1:44 PM EDT</td><td></td><td> </td> 08/22/2021 01:44:08 PM EDT [facility] ECG ROUTINE ECG W/LEAST 12 LDS TRCG ONLY W/O I&R <td>E CG 12- LEAD</td><td>Routine</td><td>08/22/2021 7:18 AM EDT</td><td></td><td></td> 08/22/2021 07:18:31 AM EDT [facility] ECG ROUTINE ECG W/LEAST 12 LDS TRCG ONLY W/O I&R <td>E CG 12- LEAD</td><td>Routine</td><td>08/17/2021 10:57 AM EDT</td><td> PAF (paroxysmal atrial fibrillation)</td><td></td> 08/17/2021 10:57:16 AM EDT PAF (paroxysmal atrial fibrillation) [facility] PAF (paroxysmal atrial fibrillation) BLOOD TYPING ABO <td>TYPE AND SCREEN</td><td> Routine</td><td>08/17/2021 10:45 AM EDT</td><td> PAF (paroxysmal atrial fibrillation)</td><td> </td> 08/17/2021 10:45:00 AM EDT PAF (paroxysmal atrial fibrillation) [facility] PAF (paroxysmal atrial fibrillation) BLOOD COUNT COMPLETE AUTOMATED <td>CBC</td><td>Routine </td><td>08/17/2021 10:30 AM EDT</td><td> PAF (paroxysmal atrial fibrillation)</td><td> </td> 08/17/2021 10:30:00 AM EDT PAF (paroxysmal atrial fibrillation) [facility] PAF (paroxysmal atrial fibrillation) BASIC METABOLIC PANEL CALCIUM TOTAL <td>BASIC METABOLI C PANEL</td><td>Routine</td><td>08/17/2021 10:30 AM EDT</td><td> PAF (paroxysmal atrial fibrillation)</td><td> </td> 08/17/2021 10:30:00 AM EDT PAF (paroxysmal atrial fibrillation) [facility] PAF (paroxysmal atrial fibrillation) OFFICE OUTPATIENT VISIT 15 MINUTES 08/16/2021 12:00:00 AM EDT [facility] ([facility]) OFFICE OUTPATIENT VISIT 25 MINUTES 08/13/2021 12:00:00 AM EDT [facility] (Osmel Alvarez MD) ECG ROUTINE ECG W/LEAST 12 LDS W/I&R 08/13/2021 12:00: 00 AM EDT [facility] (Osmel Alvarez MD) Computerized Tomography (CT Scan) of Chest and Abdomen Computerized Tomography (CT Scan) of Chest and Abdomen 08/03/2021 12:00:00 AM EDT [facility] Introduction of Antiarrhythmic into Peripheral Vein, P ercutaneous Approach Introduction of Antiarrhythmic into Peripheral Vein, Percutaneous Approach 08/03/2021 12:00:00 AM [facility] Monitoring of Cardiac Electrical Activity, External Ap proach Monitoring of Cardiac Electrical Activity, External Approach 08/03/2021 [facility] 25 MINUTES 07/20/2021 12:00:00 AM EDT [facility] ([facility], ) ECG ROUTINE ECG W/LEAST 12 LDS W/I&R 07/05/2021 12:00: 00 AM EDT [facility] (Osmel Alvarez MD) OFFICE OUTPATIENT VISIT 25 MINUTES 07/05/2021 12:00:00 AM EDT [facility] (Osmel Alvarez MD) Remove Impacted Cerumen 06/27/2021 12:00:00 AM EDT [facility] ([facility]) OFFICE OUTPATIENT VISIT 15 MINUTES 06/27/2021 12:00:00 AM EDT [facility] ([facility]) OFFICE OUTPATIENT NEW 30 MINUTES 06/27/2021 12:00:00 A M EDT [facility] ([facility]) OFFICE OUTPATIENT VISIT 25 MINUTES 06/26/2021 12:00:00 AM EDT [facility] ([facility]) Bronchoscopy W/Bronchial Alveolar Lavage 06/20/2021 12 :00:00 AM EDT [facility] ([facility]) OFFICE OUTPATIENT VISIT 25 MINUTES 06/12/2021 12:00:00 AM EDT [facility] ([facility]) DUPLEX SCAN EXTRACRANIAL ART COMPL BI STUDY 06/07/2021 12:00:00 AM EDT [facility] (Osmel Alvarez MD) ECG ROUTINE ECG W/LEAST 12 LDS W/I&R 05/31/2021 12:00: 00 AM EDT [facility] (Osmel Alvarez MD) OFFICE OUTPATIENT VISIT 25 MINUTES 05/31/2021 12:00:00 AM EDT [facility] (Osmel Alvarez MD) Electrocardiogram Complete 05/24/2021 12:00:00 AM EDT [facility] ([facility] OFFICE OUTPATIENT NEW 60 MINUTES 05/24/2021 12:00:00 A M EDT [facility] ([facility] ECG ROUTINE ECG W/LEAST 12 LDS W/I&R 04/30/2021 12:00: 00 AM EDT [facility] (Osmel Alvarez MD) OFFICE OUTPATIENT VISIT 25 MINUTES 04/30/2021 12:00:00 AM EDT [facility] (Osmel Alvarez MD) OBSERVATION CARE DISCHARGE MANAGEMENT 04/20/2021 12:00 :00 AM EDT [facility] (Osmel Alvarez MD) OFFICE OUTPATIENT VISIT 25 MINUTES 04/19/2021 12:00:00 AM EDT [facility] (Osmel Alvarez MD) SBSQ OBSERVATION CARE/DAY MODERATE SEVERITY 04/18/2021 12:00:00 AM EDT [facility] (Osmel Alvarez MD) OFFICE OUTPATIENT VISIT 25 MINUTES 04/17/2021 12:00:00 AM EDT [facility] ([facility], ) INITIAL OBSERVATION CARE/DAY MODERATE SEVERITY 021 12:00:00 AM EDT [facility] (Osmel Alvarez MD) OFFICE OUTPATIENT VISIT 25 MINUTES 03/21/2021 12:00:00 AM EDT [facility] (Osmel Alvarez MD) ECG ROUTINE ECG W/LEAST 12 LDS W/I&R 03/16/2021 12:00: 00 AM EDT [facility] (Osmel Alvarez MD) OFFICE OUTPATIENT VISIT 25 MINUTES 03/16/2021 12:00:00 AM EDT [facility] (Osmel Alvarez MD) ECG ROUTINE ECG W/LEAST 12 LDS W/I&R 03/15/2021 12:00: 00 AM EDT [facility] (Osmel Alvarez MD) OFFICE OUTPATIENT VISIT 15 MINUTES 03/15/2021 12:00:00 AM EDT [facility] (Osmel Alvarez MD) OFFICE OUTPATIENT VISIT 15 MINUTES 03/13/2021 12:00:00 AM EDT [facility] (Osmel Alvarez MD) XTRNL ECG < 48 HR RECORD SCAN STOR W/PHY R&I 12:00:00 AM EDT [facility] (Osmel Alvarez MD) ECG ROUTINE ECG W/LEAST 12 LDS W/I&R 03/08/2021 12:00: 00 AM EDT [facility] (Osmel Alvarez MD) OFFICE OUTPATIENT VISIT 25 MINUTES 03/08/2021 12:00:00 AM EDT [facility] (Osmel Alvarez MD) OFFICE OUTPATIENT VISIT 25 MINUTES 03/01/2021 12:00:00 AM EDT [facility] ([facility], ) SBSQ HOSPITAL CARE/DAY 25 MINUTES 02/17/2021 12:00:00 AM EDT [facility] ([facility], ) SBSQ HOSPITAL CARE/DAY 25 MINUTES 02/16/2021 12:00:00 AM EDT [facility] ([facility] ) SBSQ HOSPITAL CARE/DAY 25 MINUTES 02/14/2021 12:00:00 AM EDT [facility] ([facility], ) SBSQ HOSPITAL CARE/DAY 25 MINUTES 02/13/2021 12:00:00 AM EDT [facility] ([facility], ) Bronchoscopy W/Biopsy 02/12/2021 12:00:00 AM EDT [facility] ([facility] ) SBSQ HOSPITAL CARE/DAY 25 MINUTES 02/11/2021 12:00:00 AM EDT [facility] ([facility] ) SBSQ HOSPITAL CARE/DAY 25 MINUTES 02/10/2021 12:00:00 AM EDT [facility] ([facility] ) SBSQ HOSPITAL CARE/DAY 25 MINUTES 02/09/2021 12:00:00 AM EDT [facility] ([facility] ) SBSQ HOSPITAL CARE/DAY 25 MINUTES 02/08/2021 12:00:00 AM EDT [facility] ([facility] ) SBSQ HOSPITAL CARE/DAY 25 MINUTES 02/06/2021 12:00:00 AM EDT [facility] ([facility], ) Spirometry 01/30/2021 12:00:00 AM EDT M [facility] ([facility], ) OFFICE OUTPATIENT VISIT 25 MINUTES 01/30/2021 12:00:00 AM EDT [facility] ([facility] ) OFFICE OUTPATIENT VISIT 25 MINUTES 01/29/2021 12:00:00 AM EDT [facility] (Osmel Alvarez MD) OFFICE OUTPATIENT VISIT 15 MINUTES 01/18/2021 12:00:00 AM EDT [facility] ([facility] ) OFFICE OUTPATIENT VISIT 25 MINUTES 01/17/2021 12:00:00 AM EDT [facility] ([facility], ) [facility] HOSPITAL CARE/DAY 25 MINUTES 12/26/2020 12:00:00 AM EST [facility] ([facility] ) [facility] HOSPITAL CARE/DAY 25 MINUTES 12/25/2020 12:00:00 AM EST [facility] ([facility] ) [facility] HOSPITAL CARE/DAY 25 MINUTES 12/24/2020 12:00:00 AM EST [facility] ([facility], ) HOSPITAL DISCHARGE DAY MANAGEMENT 30 MIN/< 12/23/2020 12:00:00 AM EST [facility] (Osmel Alvarez MD) Plain Radiography of Chest Plain Radiography of Chest 2020 12:00:[address] [facility] HOSPITAL CARE/DAY 15 MINUTES 12/22/2020 12:00:00 AM EST [facility] (Osmel Alvarez MD) [facility] HOSPITAL CARE/DAY 25 MINUTES 12/21/2020 12:00:00 AM EST [facility] (Osmel Alvarez MD) INITIAL HOSPITAL CARE/DAY 50 MINUTES 12/20/2020 12:00: 00 AM EST [facility] (Osmel Alvarez MD) ECHO TTHRC R-T 2D W/WOM-MODE COMPL SPEC&COLR DOP 12/12 12:00:00 AM EST [facility] (Osmel Alvarez MD) Introduction of Remdesivir Anti-infectiv e into Peripheral Vein, Percutaneous Approach, [employer] Introduction of Remdesivir Anti-infectiv e into Peripheral Vein, Percutaneous Approach, [employer] 11/24/2020 12:00:00 AM [facility] Introduction of Anesthetic Agent into Re spiratory Tract, Via Natural or Artificial Opening Introduction of Anesthetic Agent into Re spiratory Tract, Via Natural or Artificial Openin 11/24/2020 12:00:[address] [facility] Introduction of Other Anti-infective int o Peripheral Vein, Percutaneous Approach Introduction of Other Anti-infective int o Peripheral Vein, Percutaneous Approach 11/24/2020 12:00:00 AM [facility] Blood culture for bacteria, including anaerobic screen (proc edure) 11/24/2020 12:00:00 AM [facility] ECG ROUTINE ECG W/LEAST 12 LDS W/I&R 11/07/2020 12:00: 00 AM EST [facility] (Osmel Alvarez MD) OFFICE OUTPATIENT VISIT 25 MINUTES 11/07/2020 12:00:00 AM EST [facility] (Osmel Alvarez MD) XTRNL ECG < 48 HR RECORD SCAN STOR W/PHY R&I 0 12:00:00 AM EST [facility] (Osmel Alvarez MD) Intermediate Eye Exam Established Patient Intermediate Eye Exam Established Patient 10/05/2020 12:00:00 AM EST CJ (David Barrow MD [facility]) Intermediate Eye Exam Established Patient Intermediate Eye Exam Established Patient 10/05/2020 12:00:00 AM EST [facility] (David Barrow MD [facility]) ECHO TTHRC R-T 2D W/WOM-MODE COMPL SPEC&COLR DOP 10/03 12:00:00 AM EST [facility] (Osmel Alvarez MD) XTRNL ECG < 48 HR RECORD SCAN STOR W/PHY R&I 0 12:00:00 AM EDT [facility] (Osmel Alvarez MD) ECHO TTHRC R-T 2D W/WOM-MODE COMPL SPEC&COLR DOP 08/18 12:00:00 AM EDT [facility] (Osmel Alvarez MD) Results ID Date Data Source [id number] 08/22/2021 02:12:19 PM EDT [facility] Name Value Range Interpretation Code Description Data Maura rce(s) Supporting Document(s) &PDF [facility] YQORIm3mKzCVHoPs45/ILQdiMGZic8SoAIdbHXv9CCquWPIwZ6QvjKlzDSbRDzCFJI1wN3QBGEPACU1X yZW [file] ICAgICAgICAgICAgICAgICAgICAgICAgICAgICAgIC ElKSXcOBGdSMFbUJEqFXYxKBBaQPAhHPGgTHWnBCArDOZrIPUnTPTiYKPgTB9XHPOnDYMuZEZcIIQaPM AgICAgICAgICAgICAgICAgICAgICAgICAgICAgICAgICAgICAgICAgICAgICAgICAgICAgICAgICAgIC JvPFZdOOAfBJVeCHQvULXnDJIgXKXhTNRgJV6PVLKu ICAgICAgICAgICAgICAgICAgICAgICAgICAgICAgICAgICAgICAgICAgICAgICAgICAgICAgICAgICAg KFHfTNJiCTNkWLFsEEJtDNMdPXUfNKMmYRJoHNPfENBzMCQdEV8KNTKqCJReEKCiCJLpJISzHHRlFDYl ICAgICAgICAgICAgICAgICAgICAgICAgICAgICAgIC XeYFKmDQKkLREnTOJiXBEtWQDyTFPyWLYjBERvHHHvFLAnYSOyVHZfUHGnAVHkIQ1WCOMfGCApLCAwEO AgICAgICAgICAgICAgICAgICAgICAgICAgICAgICAgICAgICAgICAgICAgICAgICAgICAgICAgICAgIC PyIFJfHQFcIYGhOUKtJXMnMDVuSHXwIZVsFYSaZK1V ICAgICAgICAgICAgICAgICAgICAgICAgICAgICAgICAgICAgICAgICAgICAgICAgICAgICAgICAgICAg SXQcRTZuMCIyWGEgWAPhKILyEQHnSILhJDIgGLPgUMItPSVjPJEyCI2ZSXMzDIMsWUBzSKFxFWYsTELo ICAgICAgICAgICAgICAgICAgICAgICAgICAgICAgIC TmYUMtNMRfGOKmOHReEDByMWCnCBCjNIOjEYHtLGCyLBXhMKVkWKNaLLLrMCXxJHXqIA0WNPDoGVDuYM AgICAgICAgICAgICAgICAgICAgICAgICAgICAgICAgICAgICAgICAgICAgICAgICAgICAgICAgICAgIC AgICAgICAgICAgICAgICAgICAgICAgICAgICAgICAg JO1IBHJeRRNpNHRqIVBnRQSlARTnSCDyYEEpJXQkIBPtAMFnCBUqJKMsYULdMPXtFMStEGCaSIVoFHCq VVQyZDQhQWOyIMWoXDKnXCXmOLSbJTJuTRAtANDhZLNeBHMpAKMgYGRlPA6CCULrMKRrCEOtMXDdNSCo ICAgICAgICAgICAgICAgICAgICAgICAgICAgICAgIC EjHAZlUEEnUPAfQWMwDRVgRWPzBYBvIZIgHPPgQYPtYYPpAVEuNQMhPRMjKFHbBWZtPEWjTH7CJM44tD Lem6W6JXDcCV9fzbb/Dn9SIDmuwoOwaAYpAQ6TReVsYQ9trj2YFnGvMW7gwi6WXCaMEiQdI8A5hSUvHJ FfEBHCPzWfB95uGZexKg22MJyrRYQeWxCsSIz3Gs6I JzWnF8dmFYCoNkD4AQDjHiY4SQZpQsLiRHdpRX9Hu9GvmJZsZRd+Sn5ACP2yg2TaMCdlPmOzRQ2lbj3L VJpWUoSxY6M5bVAvN2N2GLtvLd3KWCZiZNFuCjUcKXPNGGtyYE3YWH8vidI2YZ3BnTRlUDBaNDFuxBZp QVl9V23ifLPuQQwnZL7MBGR+Guilherme+No4EOHCdLRCzDK JoSrDpSGTOMyDwG65zlXXdZIUlWRK6EQQoSc4PJCYpH2ByyqVefHjgwzXeWNRxSOPRDX5WTCgjsmSkuR HihWqwGR75tAhmCV1YUf4CGuGxDH9tnu1ZhGXsGc9JTDFdXm5UCZRhFAYwBDByWOV7DFZiMcCqRJjdIF KvTNPkLNG8AUJeVKQtOR6WAqEmJYZjJkHaHOqzADMk GFOaqx1NFLDaNGFkHpejXlNgQGXeWBGtSOugNZCzYHBpAOv8WLPuPASeNG1SYnZtJEWzXWGxZoYtYWGp BHAtes8UTLTeCSCcSgImXrPcXAFlMPTfBFprYUGjRDE2BbLcEVIqBZZdNE2XYpXzJDIcMBG5MwtuOFUh OELvwi1MRFDtVPGqZkk7PmGcJDJoQBQsJDzqPCJrTB H1PGaxHVRwXZLcBL9MBmEiEQQjGZsqRkGxQOGjUYPvov0AQCDiAZQkNZJlXvDwQTSyNLRnQCnsBLKeRL T4QIK9MVMnVBNlXE6DLvEvWLTsZCx9EsDaTVAeXTSjnx1GWLJlBKEkFhN9UDHaSKFbMLBkXQriLGRzUF LeVag7MHLgCAFaDE7WUlSeFHVdXSRfRTckNJCkOSPs vh0MOKQfBAYgTFT7QtFsFMSlNVSsFYrdRGQbIWO6Hvm6YRUjNJQsKB3PKjAsKRLgCXVeYvRaRMMqVTBc bq0MFGRjMBAeGFOfFSItYAJtQGFdDSehWEAfPJL3Zax0QPWwHLLoNV1KEkTnRKHfWkU1HNKzNXBuHAId jw9QXPXnHWHvPMGkHiKeCIIhHMUrQTecCUVhPNI5EY xtUQLaFMJeLK6PVuOcITJgXetfHOmlCDKvXUQjlk6NoNQftYtclp1TMNkSBi9WuZydOPP2BEbcFv6jrX UaPpAhIYTDDq6ZjdQqKUQwDZMLEOybJMMxRPUsAMX0KTsgMqPsWUR5MQJuEHvzKPHiD7BoZDXdHGCsXd H0PzIlQYC0JPOpE4BwDHmbIER0KFXnPqYeH8Z7HBPz Y2Y+GH9jBFr+Nh3Dx1RahkY0zjCjVWrpYtXlEJ4NJDWTM2DNJg== ID Date Data Source [id number] 08/22/2021 11:15:25 AM EDT [facility] NT INFORMATIONPatient MRN Name Date of Age Gend*PT [id number] Solomon Chantale E 1965 56 years F HOPPT Location Admission Date/Time Visit ID Attending Provider --- --- --- --- EPI ID CSN Admitting Provider [id number] ---Arterial Line PlacementPatient location during procedure: ORIndications for arterial line: multiple ABGs and hemodynamic monitoringStaffingPerformed by: Hammad New, CRNAApproved by: Duong De La Cruz, DOCompleted: patient identified, risks and benefits discussed, surgical consentobtained, anesthesia consent obtained, monitors and equipment checked, pre-opevaluation completed, timeout performed, patient was prepped and draped in usualsterile fashion,Arterial Line InsertionSite prep: chlorhexidineAnesthesia: noneLaterality: leftLocation: rad ial arteryNeedle gauge: 20 GTechnique: ultrasound guidedNumber of attempts: 1AssessmentSutured: noDressing: dressing appliedPatient tolerance: tolerated well Name Value Range Interpretation Code Description Data Maura rce(s) Supporting Document(s) ID Date Data Source [id number] 08/22/2021 09:06:01 AM EDT [facility] Name Value Range Interpretation Code Description Data Maura rce(s) Supporting Document(s) EKG [facility] SSFDPn0fVfUQDxPzz5CcRmEvGEYiPM1dkhq0U6F5eNDdX5LbsPGhk0moG0QnS5XeIDJiWAJXSP6SxTOa jb2 [file] OTggMDAwMDAgbiAKMDAwMDAwMDQwOSAwMDAwMCBuIA ifGBUsPRWyEYDnNCLkIKFqJL4mXqHzQRYaDUF5GFBtDHYeUGQlqeIGEGEcGBYdLRa4RKTmWHXtDLUgRB myNFZsVUDbMAK0UHNiNHAhET5zNwFrFQDwXFH7CqYgEMOyWPRtvsFROEEwCONsXRL0ZcNzJOFuAHCpBC apLYUsKNJnSBvaKADwYKLhRO7lUtWtDBHlQIFsRJet VZJuWVRpwjXJIUOsOADkLIHzByCyLTKfWYWpVWjmEHYjRLVfPPA8PXVwJOPaUC3iEtXdVLAfGVZ5VKfy HWLiYNMkuhLYYIYpZWZmNQapLXTpGVShPXBrHMveKXVfFCZaKGT2ULGjXNNhXO0nJaGpKWOsFPZaHRJo JpT7FiSvLtHVbNHjxImosht6NYaeP9n6IYItZNphCT 3wwjIzQJLoRzopCh0otUK4HRIvDolZQa0Qp4TwnvJ3ynXtRtFnVsCqVtQpUP9X ID Date Data Source [id number] 08/22/2021 09:02:11 AM [facility] INFORMATIONPatient MRN Name Date of Age Gend*PT [id number] Chantale Solomon 1965 56 years F HOPPT Location Admission Date/Time Visit ID Attending [id number] 08/22/21 0643 --- M Berny Vu MD([id number]) EPI ID CSN Admitting Provider [id number] Kareem Vu MD([id number])Inpatient History & PhysicalGertrudedoreen SolomonMRN:[id number]: here for AF ablationPast Medical History:Past Medical History:Diagnosis Date Anemia Anxiety Cataracts, bilateral COPD (chronic obstructive pulmonary disease) Uses 2-3L of supplemental oxygen at baseline Eczema Fasciitis GERD (gastroesophageal reflux disease) Hemoptysis KAW (hard of hearing) Hypertension Lung cancer With bone metastasis, s/p chemo and RT Paroxysmal atrial fibrillation PE (pulmonary thromboembolism) Sleep apnea 2-3 L oxygen at night ThrombocytopeniaPast Surgical History:Past Surgical History:Procedure Laterality Date APPENDECTOMY CENTRAL VENOUS CATHETER INSERTION Right COLONOSCOPY CORRECTION HAMMER TOE Right DILATION AND CURETTAGE OF UTERUS HEEL SPUR EXCISION Right SPINAL FUSION T7-8 TONSILLECTOMY TUBAL LIGATIONMedications:Medications Prior to AdmissionMedication Sig Dispense Refill Last Dose albuterol (PROVENTIL HFA;VENTOLIN HFA) 108 (90 Base) MCG/ACT inhaler Inhale 2puffs daily as needed for wheezing denosumab (XGEVA) 120 MG/1.7ML SOLN injection Inject 120 mg under the skinonce Every 6 weeks diltiazem (CARDIZEM) 30 MG tablet Take 30 mg by mouth 3 (three) times a day dronedarone HCl (MULTAQ) 400 MG tablet Take 400 mg by mouth 2 (two) times aday with meals Ferrous Sulfate (Iron) 142 (45 Fe) MG TBCR Take 45 mg by mouth daily Fluticasone Furoate-Vilanterol (Breo Ellipta) 200-25 MCG/INH AEPB Inhale 1puff daily folic acid (FOLVITE) 800 MCG tablet Take 400 mcg by mouth daily furosemide (LASIX) 20 MG tablet Take 20 mg by mouth 5 (five) times a week OnFriday, Friday, , Friday, and Friday Magnesium 500 MG TABS Take 500-750 mg by mouth daily metoprolol tartrate (LOPRESSOR) 25 MG tablet Take 12.5 mg by mouth 2 (two)times a day pantoprazole (PROTONIX) 40 MG tablet Take 40 mg by mouth daily potassium chloride SA (K-DUR,KLOR-CON) 10 MEQ tablet Take 10 mEq by mouth 5(five) times a week When taking furosemide rivaroxaban (XARELTO) 10 MG tablet Take 10 mg by mouth daily sodium chloride 0.9 % SOLN 100 mL with PEMEtrexed 500 MG SOLR 500 mg/m2 Infuseinto a venous catheter every 42 days (6 weeks) Tiotropium [place] Monohydrate (Spiriva Respimat) 2.5 MCG/ACT AERS Inhale 2puffs daily albuterol (PROVENTIL) (2.5 MG/3ML) 0.083% nebulizer solution Take 2.5 mg bynebulization every 6 (six) hours as needed for shortness of breathAllergies:Other, Iodinated diagnostic agents, and PenicillinsFamily History:Family HistoryProblem Relation Age of Onset Dementia Mother COPD Mother Diabetes Father Hyperlipidemia Father Stroke Father Malig Hyperthermia Neg HxSocial History:Social HistoryTobacco Use Smoking status: Former Smoker Packs/day: 1.00 Years: 36.00 Pack years: 36.00 Types: Cigarettes Quit date: 01/2018 Years since quittin.6 Smokeless tobacco: Never UsedSubstance Use Topics Alcohol use: Not Currently Drug use: NeverReview of Systems:Pertinent positives as mentioned in the HPI. Denies recent fever, chills, orchange in appetite. Denies unilateral weakness, numbness, slurred speech, orfacial droop. Denies any hematemesis, hematochezia, or melena. Denies nausea,vomiting, diarrhea, or abdominal pain.All other systems were reviewed and the remainder are negative.Physical Exam:Vital Signs:A 9 body area/organ physical examination was performed.General: patient in NAD.HEENT: NC/AT, sclerae anicteric, moist mucous membranes.Neck: Supple. No thyromegaly was appreciated.Lungs: CTAB, without rales, rhonchi, or wheezes.CV: regular Regular rate & rhythm, no murmurs, rubs, or gallops. Normal S1/S2.The JVP is <8 cm while sitting upright.Abd: Soft, NT, ND.Extremities: No pitting edema, cyanosis or clubbing.Skin: Warm & dry, without jaundice or bruising.Psych: A&O x3, affect appropriate.Assessment:Sx pers AFLung CA sp radiation chemo 2018ThrobocytopeniaAnemiaPrior PEOn XreltoCOPD (home O2)Plan:1. AF Cryo ablationProcedure was discussed with patient / family risks, benefits, andalternatives explained. Potential risks include but not limited to pain,bleeding, infection, injury to any body system or organ between the skin andheart (including the skin, subcutaneous tissue, blood vessels, abdominal organs,heart, and lungs), phrenic nerve injury and diaphragmatic paralysis, possibleneed for a heart surgery or pacemaker implantation, heart attack, stroke, oreven .Signature: Kareem Vu, MDDate: August 22, 2021Time: 7:02 AM Name Value Range Interpretation Code Description Data Maura rce(s) Supporting Document(s) ID Date Data Source [id number] 08/22/2021 08:52:14 AM EDT [facility] INFORMATIONPatient MRN Name Date of Age Gend*PT [id number] Chantale Solomon 1965 56 years F HOPPT Location Admission Date/Time Visit ID Attending Provider --- --- --- --- EPI ID CSN Admitting Provider [id number] ---AirwayPatient location during procedure: ORUrgency: electiveDifficult airway: noAdvanced airway equipment used: noStaffingPerformed by: Hammad New, CRNAAnesthesiologist: Duong De La Cruz, DOIndications and Patient ConditionIndications for airway management: anesthesiaPreoxygenated: yesPatient position: supineIn-line stabilization: noMask ventilation: 1 - vent by maskFinal Airway/ApproachesFinal airway type: ETTNumber of attempts at final approach: 1Number of other approaches attempted: 0Final Airway DetailsFinal ETT airway: ETT - singleCuffed: yesTechnique used for successful ETT placement: direct laryngoscopyCricoid pressure: noRSI: noInsertion site: oralBlade type/size: MAC 3.5ETT size: 7.5 mmMeasured from: lipsETT to lips: 21 cmPlacement verified by: + [id number] view: grade IIa - partial view of glottis Name Value Range Interpretation Code Description Data Maura rce(s) Supporting Document(s) ID Date Data Source [id number] 08/17/2021 04:43:11 PM EDT [facility] INFORMATIONPatient MRN Name Date of Age Gend*PT [id number] Chantale Solomon 1965 56 years F OPPT Location Admission Date/Time Visit ID Attending Provider --- --- --- Kareem Vu MD([id number]) EPI ID [facility] Admitting Provider [id number] ---OUTPATIENT / OBSERVATIONAL SURGICAL OR INVASIVE PROCEDUREName: Chantale Solomon : 1965 Sex: female Care Provider: Dom VORA Physician: Dr. Vu.HISTORY OF PRESENT ILLNESS: 56 years old white female with a history ofhypertension, anxiety, COPD-O2 dependent, pulmonary embolism, JORDAN, anxiety,GERD, lung cancer with bone mets and paroxysmal atrial fibrillation for almost 1year. Patient reports frequent episodes of palpitations associated withshortness of breath and chest tightness. The episodes occur at least once amonth and last over 8 hours. Patient denies any chest pain, lightheadedness,dizziness, PND, orthopnea or syncope. The episodes of heart palpitationsaggravate by caffeine and alcohol intake. Subsequently she was referred to for surgical evaluation. All treatment options have been reviewed andshe elected to undergo ABLATION, ARRHYTHMOGENIC FOCUS, FOR ATRIAL FIBRILLATIONECHOCARDIOGRAM, TRANSESOPHAGEAL on 08/22/2021.PAST MEDICAL HISTORY:Past Medical History:Diagnosis Date Anemia Anxiety Cataracts, bilateral COPD (chronic obstructive pulmonary disease) Uses 2-3L of supplemental oxygen at baseline Eczema Fasciitis GERD (gastroesophageal reflux disease) Hemoptysis KAW (hard of hearing) Hypertension Lung cancer With bone metastasis, s/p chemo and RT Paroxysmal atrial fibrillation PE (pulmonary thromboembolism) Sleep apnea 2-3 L oxygen at night ThrombocytopeniaPAST SURGICAL HISTORY:Past Surgical History:Procedure Laterality Date APPENDECTOMY CENTRAL VENOUS CATHETER INSERTION Right COLONOSCOPY CORRECTION HAMMER TOE Right DILATION AND CURETTAGE OF UTERUS HEEL SPUR EXCISION Right SPINAL FUSION T7-8 TONSILLECTOMY TUBAL LIGATIONALLERGIES:AllergiesAllergen Reactions Other Anaphylaxis Seafood Iodinated Diagnostic Agents Palpitations Penicillins Rash Childhood reaction, after unknown duration of timeMED ICATIONS:Prior to Admission medicationsMedication Sig Start Date End Date Taking? Authorizing Provideralbuterol (PROVENTIL HFA;VENTOLIN HFA) 108 (90 Base) MCG/ACT inhaler Inhale 2puffs daily as needed for wheezing Historical Provider, MDalbuterol (PROVENTIL) (2.5 MG/3ML) 0.083% nebulizer solution Take 2.5 mg bynebulization every 6 (six) hours as needed for shortness of breath HistoricalProvider, MDdenosumab (XGEVA) 120 MG/1.7ML SOLN injection Inject 120 mg under the skin onceEvery 6 weeks Historical Provider, Kimberlyiltiazem (CARDIZEM) 30 MG tablet Take 30 mg by mouth 3 (three) times a dayHistorical Provider, Kimberlyronedarone HCl (MULTAQ) 400 MG tablet Take 400 mg by mouth 2 (two) times a daywith meals Historical Provider, Ferrous Sulfate (Iron) 142 (45 Fe) MG TBCR Take 45 mg by mouth dailyHistorical Provider, Fluticasone Furoate- Vilanterol (Breo Ellipta) 200-25 MCG/INH AEPB Inhale 1 puffdaily Historical Provider, folic acid (FOLVITE) 800 MCG tablet Take 400 mcg by mouth daily H istoricalProvider, furosemide (LASIX) 20 MG tablet Take 20 mg by mouth 5 (five) times a week OnFriday, Friday, , Friday, and Friday Historical Provider, MDMagnesium 500 MG TABS Take 500-750 mg by mouth daily Historical Provider, MDmetoprolol tartrate (LOPRESSOR) 25 MG tablet Take 12.5 mg by mouth 2 (two) timesa day Historical Provider, MDpantoprazole (PROTONIX) 40 MG tablet Take 40 mg by mouth daily HistoricalProvider, MDpotassium chloride SA (K-DUR,KLOR-CON) 10 MEQ tablet Take 10 mEq by mouth 5(five) times a week When taking furosemide Historical Provider, MDrivaroxaban (XARELTO) 10 MG tablet Take 10 mg by mouth daily HistoricalProvider, MDsodium chloride 0.9 % SOLN 100 mL with PEMEtrexed 500 MG SOLR 500 mg/m2 Infuseinto a venous catheter every 42 days (6 weeks) Historical Provider, Tiotropium [place] Monohydrate (Spiriva Respimat) 2.5 MCG/ACT AERS Inhale 2puffs daily Historical Provider, Arely HistoryTobacco Use Smoking status: Former Smoker Packs/day: 1.00 Years: 36.00 Pack years: 36.00 Types: Cigarettes Quit date: 01/2018 Years since quittin.6 Smokeless tobacco: Never UsedSubstance Use Topics Alcohol use: Not Currently Drug use: NeverFamily HistoryProblem Relation Age of Onset Dementia Mother COPD Mother Diabetes Father Hyperlipidemia Father Stroke Father Malig Hyperthermia Neg HxREVIEW OF SYSTEMS:Respiratory: Reports shortness of breath secondary to COPD and lung cancer.Denies cough, yellow sputum production or wheezing. Uses 2 L of oxygencontinuously.Cardiovascular: Palpitations. Denies any chest pain, pressure or tightness.Denies any paroxysmal nocturnal dyspnea or orthopnea.GI: Denies nausea, vomiting, diarrhea, constipation or melena.Neurologic: Denies any numbness, tingling, tremors or syncope.Vascular: Denies any edema. Denies claudication.PHYSICAL EXAM:GENERAL: She is a 56 years old, pleasant white female, in no acute distress attime of examination. Vitals on arrival to the office are BP 106/66 (BP Location:Left upper arm, Patient Position: Sitting) | Pulse 77 | Ht 1.524 m (5') | Wt74.1 kg (163 lb 6.4 oz) | SpO2 99% | BMI 31.91 kg/m Body mass index is 31.91kg/m ..Skin is pink, warm, and dry.NECK: She has a grade 1 airway. Neck is supple, midline, without cervicaladenopathy. No thyromegaly. No carotid bruits.MENTAL / NEUROLOGICAL STATUS: [id number]: Decreased over left lung. No wheezes, rhonchi or crackles.HEART: Rate rhythm regular. S1, S2. No murmur, rub or gallop. Right chest wallport intact.ABDOMEN: Bowel sounds positive times four. Soft, non tender. No reboundtenderness. No hepatosplenomegaly. Negative CVAT.EXTREMITIES: Pulses are symmetrical. No edema.Anesthesia complications: deniesCSHA Frailty Scale :: 3/10 Managing Well (medical problems are well controlled,but are not regularly active beyond routine walking).ASSESSMENT: Primary Diagnosis/Indication: Paroxysmal atrial fibrillation.PLAN: Procedure: ABLATION, ARRHYTHMOGENIC FOCUS, FOR ATRIAL FIBRILLATIONECHOCARDIOGRAM, TRANSESOPHAGEAL on 08/22/2021.08/17/2021 4:42 PMLynikki Hoang, NPThis document or parts of this document, were dictated using Inveni speaking software. A reasonable attempt at proofreading has beenmade to minimize errors. Please call with any questions or corrections. Name Value Range Interpretation Code Description Data [facility] Supporting Document(s) ID Date Data Source [id number] 08/17/2021 10:59:34 AM EDT [facility] Name Value Range Interpretation Code Description Data [facility] rce(s) Supporting Document(s) EKG [facility] JIRSUz6vXwFNRmGyi2LlChJpRJQrBJ2chvy0N9Q2hYLaS1UamOBij2jlC9NdJ5BpFYWzRDTOZI8ObGXf jb2 [file] AwMDAwMDUyMyAwMDAwMCBuIAowMDAwMDAwNjQxIDAw ONFhSY8bPeDjRYNyIMQ3GGMgTBRaDYXpynQVDAJhHYXqHOm5KEXwBBUvXSWkJMxuFFXpQPTeDKS2LIJf OWSmIB1zPlYbEGAhFFTvCVRvDOUkOABhwcLIQVTsLECfIHP0ZEVjFRWwZQGlUFhvUPRmYHRkBaz5FLXu ATLhSS0rLoSuIODmMYQ0OFEpFRMqUGWqjqZMEJLbAY Z5UgQ3HHFyMAPnNYIeIKmiJJHlVIRxIzC1USHnXTNyWI9xZwCgGYZpNXH4VmRiNMUdNVQtpaMGJGSdPJ NyWPN3UdHlNXGrSVEwTKrcMUSlBDTcCKWrMYU2WCN8EBZrNkNtMDraHZOXQPjZN0CutdBwBjRHT8wpEh 6kFoCaNNYXY3Qti9NcQUVyPDNARe8+XoP4BPC2zKWpMng6Snz5UurgSCXOFl== ID Date Data Source [id number] 08/17/2021 07:13:49 PM EDT [facility] SPEC EXP DATE 08/23/2021ATI ENT ABO/Rh A POSITIVEANTIBODY SCREEN NEGATIVETESTING SITE PERFORMED AT [address] [place] [id number] Name Value Range Interpretation Code Description Data Maura rce(s) Supporting Document(s) TYPE AND SCREEN [facility] ID Date Data Source [id number] 08/17/2021 01:52:40 PM EDT [facility] Name Value Range Interpretation Code Description Data Maura rce(s) Supporting Document(s) SODIUM 140 mmol/L (136-145) [facility] POTASSIUM 4.0 mmol/L (3.6-5.2) [facility] CHLORIDE 103 mmol/L (100-108) [facility] CO2 31 mmol/L (22-31) [facility] ANION GAP 6 mmol/L (7-16) L [facility] UREA NITROGEN 14 mg/dL (7-24) [facility] CREATININE 1.24 mg/dL (0.60-1.00) H [facility] BUN/CREAT RATIO 11.3 RATIO (10.0-20.0) [facility] GLUCOSE 104 mg/dL (70-99) H [facility] CALCIUM 8.8 mg/dL (8.4-10.2) [facility] GFR 45 ml/min/1.73m2 (>59) L [facility] GFR ([facility]) 54 ml/min/1.73m2 (>59) L [facility] GFR INTERPRETATION [facility] --NORMAL KIDNEY FUNCTION OR MILD DISEASE - GFR >OR= 60CHRONIC KIDNEY DISEASE - GFR 15 - 59RENAL FAILURE - GFR <15 Est. GFR calculation based on the MDRDstudy equation, which assumes a steadystate for creatinine. Est. GFR should notbe used for medication dosing. ID Date Data Source [id number] 08/17/2021 01:37:01 PM EDT [facility] Name Value Range Interpretation Code Description Data Maura rce(s) Supporting Document(s) WBC 8.8 10*3/uL (4.1-11.0) [facility] RBC 2.70 10*6/uL (4.00-5.40) L [facility] HGB 9.5 g/dL (12.0-16.0) L [facility] HCT 28.7 % (36.0-47.0) L [facility] MCV 106.2 fL (80.0-95.0) H [facility] MCH 35.1 pg (27.0-32.0) H [facility] MCHC 33.1 g/dL (32.0-36.0) [facility] RDW 17.4 % (10.5-14.5) H [facility] PLT 257 10*3/uL (150-450) [facility] MPV 8.0 fL (7.1-10.7) [facility] ID Date Data Source [id number] 08/18/2021 06:43:58 AM EDT [facility] Name Value Range Interpretation Code Description Data Maura rce(s) Supporting Document(s) SPECIMEN DESCRIPTION [facility] COVID 19 RESULT (NDET) [facility] NEGATIVE COVID-19 RESULTS DONOT PRECLUDE COVID-2019 INFECTION ANDSHOULD NOT BE USED THE SOLE BASISFOR PATIENT MANAGEMENT DECISIONS. COMMENT [facility] THE [place] FDA HAS MADE THIS TEST AVAILABL PAIGEER AN EMERGENCY USE AUTHORIZATION(EUA) FOR THE DETECTION AND/OR DIAGNOSISOF THE VIRUS THAT CAUSES COVID-19.THIS ASSAY AMPLIFIES AND DETECTS [employer] USING DIRECTOR OF PEDIATRIC REHABILITATION- MEDIATEDAMPLIFICATIONTESTING PERFORMED ON Public[employer] FIRST TEST [facility] EMPLOYED IN [employer] [facility] SYMPTOMATIC [facility] DATE OF SYMPT ONSET [facility] HOSPITALIZED [facility] CONGREGATE CARE SET [facility] ID Date Data Source [id number] 08/04/2021 07:58:00 [place] [address] PROGRESS NOTENAME: JUANITO Daniels ROOM#: [id number] OF : 1965 MR#: [id number] DATE: 08/01/21 OF SERVICE: 08/04/21SUBJECTIVE: This patient has known history of atrial fibrillation, anemia, 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 She complains of pain in the dorsal spine, lumbar spine, both hips, right rib cageand left rib cage.REVIEW OF SYSTEMS:CONSTITUTIONAL: The patient reports no anorexia, fever, night sweats, systemic illness, or recent weightgain/loss.HEAD: No head trauma or headaches.EYES: No blurred or double vision.ENT: No hearing loss, epistaxis, dysphagia, or sinus congestion.RESPIRATORY: No cough, HILL, wheezing, hemoptysis, sputum production, or SOB.CARDIOVASCULAR: No chest pain, rapid or irregular heartbeat, orthopnea, PND, or lower extremityedema.GI: No nausea, vomiting, abdominal pain, or change in bowel habits.: No pain with urination, urgency or frequency, blood in urine, difficulty starting or stopping urinarystream, urinary infection, stones, or cysts.MUSCULOSKELETAL: No arthritis, joint swelling, or joint stiffness.NEUROLOGIC: No dizziness, syncope, or weakness.ENDOCRINE: No excessive urination or excessive thirst.OBJECTIVE: On exam, moderately built. Blood pressure is 110/80. Head is normal. Heart is regular sinusrhythm. Lungs are clear. Abdomen is soft. Extremities are normal. Patient is quite tender in the bones in thewhole spine, dorsal and lumbar spine and also in both rib cages and both hip areas.ASSESSMENT/PLAN: Patient has the following issues:1. 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 Low magnesium of 1.4. Plan is to give her 2 gram of magnesium sulfate IV.3. Hemoglobin is 8.4, possibly secondary to metastatic disease. Patient has been advised to [facility] with [facility]. She is scheduled for a PET scan on August 13 at [facility].DD: Osmel Alvarez MD, PC 08/04/21 10:32DT: DMAtuumn 08/04/21 19:58DS: Osmel Alvarez MD, PC 08/09/21 08:09 1 Name Value Range Interpretation Code Description Data Maura rce(s) Supporting Document(s) ID Date Data Source [id number] 08/03/2021 10:51:00 [place] [address] PROGRESS NOTENAME: JUANITO Daniels ROOM#: [id number] OF : 1965 MR#: [id number] DATE: 08/01/21 OF SERVICE: 08/03/21SUBJECTIVE: This patient has known atrial fibrillation. Patient complains of marked tiredness, fatigue anddizziness when she walks.REVIEW OF SYSTEMS:CONSTITUTIONAL: The patient reports no anorexia, fever, night sweats, systemic illness, or recent weightgain/loss.HEAD: No head trauma or headaches.EYES: No blurred or double vision.ENT: No hearing loss, epistaxis, dysphagia, or sinus congestion.RESPIRATORY: No cough, HILL, wheezing, hemoptysis, sputum production, or SOB.CARDIOVASCULAR: No chest pain, rapid or irregular heartbeat, orthopnea, P ND, or lower extremityedema.GI: No nausea, vomiting, abdominal pain, or change in bowel habits.: No pain with urination, urgency or frequency, blood in urine, difficulty starting or stopping urinarystream, urinary infection, stones, or cysts.MUSCULOSKELETAL: No arthritis, joint swelling, or joint stiffness.NEUROLOGIC: No dizziness, syncope, or weakness.ENDOCRINE: No excessive urination or excessive thirst.OBJECTIVE: On exam, moderately built. Blood pressure is 120/80. Head is normal. Heart is regular sinusrhythm. Lungs are clear. No edema in the legs.LABORATORY DATA: WBC 5.2, RBC 2.46, hemoglobin 8.6, hematocrit 25.5, MCV 103.7, MCH35, MCHC 33.7, RDW 14.2, platelets 93, MPV 10.0. Sodium 137, potassium 4.1, chloride 99, CO2 27,glucose 102, BUN 18, creatinine 1.2, BUN/creatinine ratio 15, calcium 8.6, anion gap 11.0.ASSESSMENT/PLAN:1. Patient is converted to regular sinus rhythm. Plan to increase the Cardizem dose to 30 mg every 8 hourly.2. Anemia. Hemoglobin is 8.5. Plan to give another dose of Venofer IV 200 mg.3. Magnesium level is low at 1.6. Will give magnesium sulfate 2 gram IV.4. Patient complains of pain in the pelvis area. She has known history of carcinoma of the left lung. CT scan of the abdomen and pelvis shows metastatic disease. Also, she has pain in the right side of the chest. She is pointing to the right rib cage. Will do a CT scan of the right rib cage for metastatic disease from primary lung, left lung cancer,DD: Osmel Alvarez MD, PC 08/03/21 09:33 [address] [place] [address] PROGRESS NOTENAME: JUANITO Daniels ROOM#: [id number] OF : 1965 MR#: [id number] DATE: 08/01/21 : SONYA 08/03/21 22:48DS: Osmel Alvarez MD, PC 08/09/21 08:09 2 Name Value Range Interpretation Code Description Data Maura rce(s) Supporting Document(s) ID Date Data Source [id number] 08/02/2021 11:41:00 [place] [address] PROGRESS NOTENAME: JUANITO Daniels ROOM#: [id number] OF : 1965 MR#: [id number] DATE: 08/01/21 OF SERVICE: 08/02/21SUBJECTIVE: This patient came in with atrial fibrillation. With Cardizem drip, she converted to regularsinus rhythm in the middle of the night. She feels better. She is still anemic. Denies any chest pain or dyspnea.REVIEW OF SYSTEMS:CONSTITUTIONAL: The patient reports no anorexia, fever, night sweats, systemic illness, or recent weightgain/loss.HEAD: No head trauma or headaches.EYES: No blurred or double vision.ENT: No hearing loss, epistaxis, dysphagia, or sinus congestion.RESPIRATORY: No cough, HILL, wheezing, hemoptysis, sputum production, or SOB.CARDIOVASCULAR: No chest pain, rapid or irregular heartbeat, orthopnea, PND, or lower extremityedema.GI: No nausea, vomiting, abdominal pain, or change in bowel habits.: No pain with urination, urgency or frequency, blood in urine, difficulty starting or stopping urinarystream, urinary infection, stones, or cysts.MUSCULOSKELETAL: No arthritis, joint swelling, or joint stiffness.NEUROLOGIC: No dizziness, syncope, or weakness.ENDOCRINE: No excessive urination or excessive thirst.OBJECTIVE: On exam, moderately built. Blood pressure is 130/80. Head is normal. Heart is regular sinusrhythm. Lungs are clear. Abdomen is soft. Extremities are normal.LABORATORY DATA: WBC 7.7, RBC 2.63, hemoglobin 8.9, hematocrit 28.0, MCV 106.5, MCH33.8, MCHC 31.9, RDW 14.6, platelets 109, MPV 9.8. Sodium 136, potassium 4.4, chloride 102, CO230, glucose 104, BUN 16, creatinine 1.2, BUN/creatinine ratio 13, calcium 8.5, anion gap 4.0.ASSESSMENT/PLAN: Patient has the following issues:1. CT scan of the chest did show possible pulmonary emboli, multisegmental right upper lobe and right lower lobe, unchanged from prior examination, which probably is an old emboli.2. History of cancer of the left lung which is now in the left mainstem bronchus with mucus plugging and bilateral upper lobe effusion.3. The patient is anemic. Hemoglobin is 8.9. Plan to do serum iron level and B12. We will give her IV Venofer, if needed. Patient is on Multaq 400 mg b.i.d., Cardizem 50 mg b.i.d. p.o. We will maximize anti-arrhythmic therapy. [address] [place] [address] PROGRESS NOTENAME: JUANITO Daniels ROOM#: [id number] OF : 1965 MR#: [id number] DATE: 08/01/21 4. We will get an ultrasound of both legs to rule out a blood clot in the leg veins. We will increase the Xarelto from 10 mg to 15 mg daily. Patient has known history of GI bleeding, so she is cautious in taking anticoagulation.DD: Osmel Alvarez MD, PC 08/02/21 09:37DT: SONYA 08/02/21 23:33DS: Osmel Alvarez MD, PC 08/09/21 08:09 2 Name Value Range Interpretation Code Description Data Maura rce(s) Supporting Document(s) ID Date Data Source [id number] 08/06/2021 12:48:00 [place] [address] HISTORY AND PHYSICALNAME: JUANITO Daniels ROOM#: [id number] OF : 1965 MR#: [id number] PHYS: Osmel Alvarez MD, PC DATE: 08/01/21DATE OF SERVICE: 08/01/2021HIEF COMPLAINT:This 56-year-old white female presented with chest pain on deep inspiration, palpitation, dyspnea.HISTORY OF PRESENT ILLNESS:She has a history of atrial fibrillation, PE. She came yesterday to the ER with rapid ventricular rate. She wasseen and she went home. Today she comes back with dyspnea, right chest pain on deep inspiration, frequentpalpitations. Patient complains of tiredness, fatigue. She has dyspnea. History of TIA, history of PE, atrialfibrillation.MEDICATIONS:Patient is taking : 1. Breo Ellipta one puff daily. 2. Diltiazem 180 mg daily. 3. Folic acid daily. 4. Lasix 20 mg daily. 5. Iron daily. 6. Magnesium 500 mg daily. 7. Metoprolol ER 12.5 mg daily. 8. Multaq 400 mg bid. 9. Protonix 40 mg daily. 10. Potassium 10 mEq bid. 11. Spiriva inhaler. 12. Xarelto 10 mg daily.PAST MEDICAL HISTORY:Patient has long history of atrial fibrillation. The patient has anemia, arrhythmia, atrial fib, COPD, DVT,hypertension. History of positive GI bleed, history of PE, pneumonia, lung cancer left lung, goes to Oncology.History of TIA.PAST SURGICAL HISTORY:Appendectomy in the past, back surgery, D&C, she has rods in the thoracic spine, septoplasty, tubal ligation.REVIEW OF SYSTEMS: [address] [place] [address] HISTORY AND PHYSICAL NAME: JUANITO Daniels ROOM#: [id number] DATE OF : 1965 MR#: [id number] ATTENDING PHYS: Osmel Alvarez MD, [id number] ADMISSION DATE: 08/01/21The patient has chest pain with dep inspiration, PE. There is no orthopnea or paroxysmal nocturnal dyspnea.No chills or fever. No cough or hemoptysis. No bowel disturbance. No urinary problem. No ankle edema.CONSTITUTIONAL: The patient reports no anorexia, fever, night sweats, systemic illness, or recent weightgain/loss.HEAD: No head trauma or headaches.EYES: No blurred or double vision.ENT: No hearing loss, epistaxis, dysphagia, or sinus congestion.RESPIRATORY: No cough, HILL, wheezing, hemoptysis, sputum production, or SOB.CARDIOVASCULAR: No orthopnea, PND, or lower extremity edema. Chest pain with deep inspiration, PE.GI: No nausea, vomiting, abdominal pain, or change in bowel habits.: No pain with urination, urgency or frequency, blood in urine, difficulty starting or stopping urinarystream, urinary infection, stones, or cysts.MUSCULOSKELETAL: No arthritis, joint swelling, or joint stiffness.NEUROLOGIC: No dizziness, syncope, or weakness.ENDOCRINE: No excessive urination or excessive thirst.PERSONAL HISTORY:Not smoking for the last couple of years.ALLERGIES:PENICILLIN and seafood.PHYSICAL EXAM:GENERAL: Moderately built.VITAL SIGNS: Blood pressure 130/80, pulse 80, respirations 18, temperature 98.HEENT: Head is normal. Pupils and fundus are normal. Mouth is normal. Tongue dry.NECK: Supple. No lymphadenopathy. Thyroid not enlarged. Neck veins are not distended. No carotidbruits.CHEST: Symmetrical.HEART: Atrial fibrillation with rapid ventricular rate, rate of 120.LUNGS: Clear. No rales or rhonchi.ABDOMEN: Soft. Nontender.EXTREMITIES: Normal. Peripheral pulses palpable.NEUROLOGIC: Normal.IMPRESSION:1. Paroxysmal atrial fibrillation, recurrent, rapid rate. [address] [place] [address] HISTORY AND PHYSICALNAME: JUANITO Daniels ROOM#: [id number] OF : 1965 MR#: [id number] PHYS: Osmel Alvarez MD, PC DATE: . Right-sided chest pain, rule out PE.3. History of COPD.4. History of lung cancer.PLAN:Patient will be put on low dose Cardizem drip 5 mg/hour IV and see how she responds. She will beclosely monitored. She is schedule in a month's time for atrial fibrillation evaluation with Dr. Kylah Soria.DD: Osmel Alvarez MD, PC 08/01/21 08:57DT: SSR 08/01/21 10:24DS: Osmel Alvarez MD, PC 08/09/21 08:09 3 Name Value Range Interpretation Code Description Data Maura rce(s) Supporting Document(s) ID Date Data Source [id number] 08/06/2021 01:14:00 [place] [address] DISCHARGE SUMMARYNAME: JUANITO Daniels ROOM#: [id number] OF : 1965 MR#: [id number] PHYS: [id number] DATE: 08/01/21 DISCHARGED: 08/05/21REASON FOR ADMISSION: This 56-year-old white female came in with recurrent atrial fibrillationwith several visits to the ER and hospital previously. She is scheduled for atrial fibrillation ablation in3 weeks.HISTORY OF PRESENT ILLNESS:Patient complains of chest pain on deep inspiration, palpitations and dyspnea. She also came the day beforeadmission to the ER with atrial fibrillation. Patient claims that she has right-sided chest pain and is quiteconcerned. When she came to the ER, she was in atrial fibrillation with rapid ventricular rate, recurrent. Onexamination, blood pressure was 110/80. Head is normal. Heart rate is atrial fibrillation with rapid ventricularrate. Lungs are clear. Abdomen is soft. Patient is tender in the right lower rib cage, quite pronounced.LABORATORY & X-RAY DATA:Lab tests with a CT scan of the abdomen showed pelvic lesion likely representing metastatic disease.Bone defect of L1 to L4 compression fractures. Sclerotic changes in the ischia bilateral, possiblemetastatic disease. Patient also complains of right ischium pain. CT scan of the chest showed scleroticmetastatic lesion left sixth rib. Complete opacification in the left upper lung air space, airbronchogram. D-dimer was 3.59. CT scan of the abdomen showed old possible PE in the right lung.Ultrasound of the legs did not show any thrombus. Hemoglobin was 8.9, white count was 7.7.Magnesium was 1.7. Iron is 25. On 08/02, sodium was 133, potassium was 4.4, BUN was 16, creatininewas 1.2. Hemoglobin was 8.6. On 08/04, sodium was 134, potassium was 4.1, iron 29. She was anemic.Hemoglobin on 08/05 was 8.7.HOSPITAL COURSE:The patient was treated with Xarelto 15 mg daily, Cardizem drip 5 mg/hr IV, Cardizem 30 mg wasgiven t.i.d., metoprolol tartrate 12.5 mg b.i.d. and Multaq 400 mg b.i.d. Her chest pain got better. Sheapparently has marked tenderness in the right rib cage. Atrial fibrillation got under good control withCardizem 30 mg q 8 hourly. Magnesium was low and she was given magnesium sulfate 2 gram IV. On08/05, it was decided to discharge her and follow her in the office.DISCHARGE DIET:2-gram salt diet.DISCHARGE MEDICATIONS:1. Breo Ellipta daily2. Folic acid daily3. Furosemide 20 mg daily4. Magnesium 250 mg daily5. Multaq 400 mg b.i.d. [address] [place] [address] DISCHARGE SUMMARYNAME: JUANITO Daneils ROOM#: [id number] OF : 1965 MR#: [id number] PHYS: Osmel Alvarez MD, PC DATE: 08/01/21 DISCHARGED: 08/05/21 6. Protonix 40 mg daily 7. Potassium 10 mEq b.i.d. 8. Iron daily 9. Spiriva inhaler daily 10. Xarelto 20 mg alternating with 10 mg daily 11. Metoprolol tartrate 12.5 mg b.i.d.During the course in the hospital, the patient was also given Venofer IV for anemia. Her iron level waslow. Also Procrit 20,000 units was given subcutaneous.DISCHARGE FOLLOW-UP:Follow-up in the office in three days. She is scheduled for atrial fibrillation ablation at [facility] in three weeks.FINAL DIAGNOSES:1. Paroxysmal atrial fibrillation, recurrent.2. History of right pulmonary emboli.3. 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 Carcinoma of the left lung.5. History of COPD.DD: Osmel Alvarez MD, PC 08/05/21 11:21DT: SONYA 08/06/21 01:14DS: Osmel Alvarez MD, PC 08/09/21 08:09 2 Name Value Range Interpretation Code Description Data Maura rce(s) Supporting Document(s) ID Date Data Source [id number] 08/09/2021 07:42:00 [place] [address] RESPIRATORY CARE REPORT ==== ---------NAME------- NUMBER SEX AGE ADMIT DISC. XRAY# F/C CYNDY Daniels [id number] F 56 08/01/21 08/05/21 [id number] B1 I/P DATE OF : 1965 M/R# [id number] PH#: [phone] [id number] LOCATION: EMERGENCY DEPT EKG [id number] COMP LETE:08/05/21 10:27 [place] [id number] PHYSICIAN: KIM MENDEZ Name Value Range Interpretation Code Description Data Maura rce(s) Supporting Document(s) ID Date Data Source [id number] 08/09/2021 07:41:00 [place] [address] RESPIRATORY CARE REPORT ==== ---------NAME------- NUMBER SEX AGE ADMIT DISC. XRAY# F/C CYNDY Daniels [id number] F 56 08/01/21 08/05/21 [id number] B1 I/P DATE OF : 1965 M/R# [id number] PH#: [phone] [id number] LOCATION: EMERGENCY DEPT EKG 48113 COMP LETE:08/04/21 12:30 [place] [id number] PHYSICIAN: KIM MENDEZ Name Value Range Interpretation Code Description Data Maura rce(s) Supporting Document(s) ID Date Data Source [id number] 08/09/2021 07:40:00 AM EDT [address] [address] RESPIRATORY CARE REPORT ==== ---------NAME------- NUMBER SEX AGE ADMIT DISC. XRAY# F/C CYNDY Daniels [id number] F 56 08/01/21 08/05/21 [id number] B1 I/P DATE OF : 1965 M/R# [id number] PH#: [id number] 109-1 LOCATION: EMERGENCY DEPT EKG [id number] COMP LETE:08/03/21 11:00 CJM 74108 PHYSICIAN: KIM MENDEZ Name Value Range Interpretation Code Description Data Maura rce(s) Supporting Document(s) ID Date Data Source [id number] 08/09/2021 07:38:00 AM EDT [facility] [address] [place] [address] RESPIRATORY CARE REPORT ==== ---------NAME------- NUMBER SEX AGE ADMIT DISC. XRAY# F/C CYNDY Daniels [id number] F 56 08/01/21 08/05/21 [id number] B1 I/P DATE OF : 1965 M/R# [id number] PH#: [phone] 109-1 LOCATION: EMERGENCY DEPT EKG [id number] COMP LETE:08/02/21 07:16 CLC [id number] PHYSICIAN: KIM MENDEZ Name Value Range Interpretation Code Description Data Maura rce(s) Supporting Document(s) ID Date Data Source [id number] 08/09/2021 07:37:00 [place] [address] RESPIRATORY CARE REPORT ==== ---------NAME------- NUMBER SEX AGE ADMIT DISC. XRAY# F/C OSMANIJUANITO KYLEKULDIP Daniels [id number] F 56 08/01/21 08/05/21 [id number] B1 I/P DATE OF : 1965 M/R# [id number] PH#: [phone] 109-1 LOCATION: EMERGENCY DEPT EKG 25169 COMP LETE:08/09/21 07:36 CLC 93187 PHYSICIAN: KIM Coronado Value Range Interpretation Code Description Data Maura rce(s) Supporting Document(s) ID Date Data Source [id number] 08/09/2021 07:32:00 [place] [address] RESPIRATORY CARE REPORT ==== ---------NAME------- NUMBER SEX AGE ADMIT DISC. XRAY# F/C OSMANISUREKHAAMELIA Daniels [id number] F 56 08/01/21 08/05/21 [id number] B1 I/P DATE OF : 1965 M/R# [id number] PH#: [id number] 109-1 LOCATION: EMERGENCY DEPT EKG 85982 COMP LETE:08/01/21 10:59 CLC 28188 PHYSICIAN: KIM STUBBS Name Value Range Interpretation Code Description Data Maura rce(s) Supporting Document(s) ID Date Data Source [id number] 08/05/2021 06:33:00 AM EDT [facility] (Osmel Alvarez MD) Name Value Range Interpretation Code Description Data Maura rce(s) Supporting Document(s) Magnesium [Mass/volume] in Serum or Plasma 1.8 mg/dL 1.7-2.2 [facility] (Osmel Alvarez MD) ID Date Data Source [id number] 08/05/2021 06:33:00 AM EDT [facility] (Osmel Alvarez MD) Name Value Range Interpretation Code Description Data Maura rce(s) Supporting Document(s) Laboratory test finding (navigational concept) 4.7 10^3/uL 4.2-11.0 [facility] (Osmel Alvarez MD) Laboratory test finding (navigational concept) Laboratory test result [facility] (Osmel Alvarez MD) COMPLETE BLOOD COUNT Laboratory test finding (navigational concept) 2.51 10^6/uL 4 .20-5.40 Below low normal [facility] (Osmel Alvarez MD) Laboratory test finding (navigational concept) 8.7 g/dL 1 2.0-16.0 Below low normal [facility] (Osmel Alvarez MD) Laboratory test finding (navigational concept) 104.8 fL 8 1.0-101 Above high normal [facility] (Osmel Alvarez MD) Laboratory test finding (navigational concept) 34.7 pg 2 7.0-34.0 Above high normal [facility] (Osmel Alvarez MD) Laboratory test finding (navigational concept) 26.3 % 3 7.0-47.0 Below low normal [facility] (Osmel Alvarez MD) Laboratory test finding (navigational concept) 14.0 % 11.5-14.5 [facility] (Osmel Alvarez MD) Laboratory test finding (navigational concept) 33.1 g/dL 31.0-36.0 [facility] (Osmel Alvarez MD) Laboratory test finding (navigational concept) 113 10^3/uL 1 50-450 Below low normal [facility] (Osmel Alvarez MD) Laboratory test finding (navigational concept) 65.4 % 37.0-80.0 [facility] (Osmel Alvarez MD) Laboratory test finding (navigational concept) 10.7 fL 7 .4-10.4 Above high normal [facility] (Osmel Alvarez MD) Laboratory test finding (navigational concept) 6.8 % 25.0-40 .0 Below low normal [facility] (Osmel Alvarez MD) Laboratory test finding (navigational concept) 18.9 % 3.0-8.0 Above high normal [facility] (Osmel Alvarez MD) Laboratory test finding (navigational concept) 7.2 % 0.0-7.0 Above high normal [facility] (Osmel Alvarez MD) Laboratory test finding (navigational concept) 0.4 % 0.0-2.5 [facility] (Osmel Alvarez MD) Laboratory test finding (navigational concept) 1.3 % 0.0-0.0 Above high normal [facility] (Osmel Alvarez MD) Laboratory test finding (navigational concept) 3.09 10^3/uL 2.00-6.90 [facility] (Osmel Alvarez MD) Laboratory test finding (navigational concept) 0.0 % 0.0-0.0 [facility] (Osmel Alvarez MD) Laboratory test finding (navigational concept) 0.32 10^3/uL 0 .60-3.40 Below low normal [facility] (Osmel Alvarez MD) Laboratory test finding (navigational concept) 0.89 10^3/uL 0.00-0.90 [facility] (Osmel Alvarez MD) Laboratory test finding (navigational concept) 0.34 10^3/uL 0.00-0.70 [facility] (Osmel Alvarez MD) Laboratory test finding (navigational concept) 0.02 10^3/uL 0.00-0.20 [facility] (Osmel Alvarez MD) Laboratory test finding (navigational concept) 0.00 10^3/uL 0.00-0.00 [facility] (Osmel Alvarez MD) Laboratory test finding (navigational concept) 0.06 10^3/uL 0.00-0.10 [facility] (Osmel Alvarez MD) Laboratory test finding (navigational concept) Laboratory test result [facility] (Osmel Alvarez MD) Laboratory test finding (navigational concept) Laboratory test result [facility] (Osmel Alvarez MD) ID Date Data Source [id number] 08/05/2021 06:33:00 AM EDT [facility] (Osmel Alvarez MD) Name Value Range Interpretation Code Description Data Maura rce(s) Supporting Document(s) Laboratory test finding (navigational concept) Laboratory test result [facility] (Osmel Alvarez MD) COMPREHENSIVE METABOLIC PANEL Laboratory test finding (navigational concept) 139 meq/L 134-153 [facility] (Osmel Alvarez MD) Laboratory test finding (navigational concept) 4.1 meq/L 3.6-5.0 [facility] (Osmel Alvarez MD) Laboratory test finding (navigational concept) 101 meq/L 98-107 [facility] (Osmel Alvarez MD) Laboratory test finding (navigational concept) 28 meq/L 22-30 [facility] (Osmel Alvarez MD) Laboratory test finding (navigational concept) 100 mg/dL 7 0-99 Above high normal [facility] (Osmel Alvarez MD) Laboratory test finding (navigational concept) 18 mg/dL 7-21 [facility] (Osmel Alvarez MD) Laboratory test finding (navigational concept) 15 8-27 [facility] (Osmel Alvarez MD) Laboratory test finding (navigational concept) 5.6 g/dL 6 .3-8.2 Below low normal [facility] (Osmel Alvarez MD) Laboratory test finding (navigational concept) 1.2 mg/dL 0.7-1.5 [facility] (Osmel Alvarez MD) Laboratory test finding (navigational concept) 1.3 0.8-2.0 [facility] (Osmel Alvarez MD) Laboratory test finding (navigational concept) 2.4 GM/DL 2.4-3.2 [facility] (Osmel Alvarez MD) Laboratory test finding (navigational concept) 3.2 g/dL 3 .9-5.0 Below low normal [facility] (Osmel Alvarez MD) Laboratory test finding (navigational concept) 157 U/L 38-126 Above high normal [facility] (Osmel Alvarez MD) Laboratory test finding (navigational concept) Laboratory test resu lt 0.2-1.3 [facility] (Osmel Alvarez MD) Laboratory test finding (navigational concept) 8.7 mg/dL 8.4-10.2 [facility] (Osmel Alvarez MD) Laboratory test finding (navigational concept) 25 U/L 7-56 [facility] (Osmel Alvarez MD) Laboratory test finding (navigational concept) 30 U/L 5-40 [facility] (Osmel Alvarez MD) Laboratory test finding (navigational concept) 10.0 mmol/L 8.0-16.0 [facility] (Osmel Alvarez MD) Laboratory test finding (navigational concept) 60 mL/min [facility] (Osmel Alvarez MD) Male GFR [...] Normal 80 and above >32 mL/min Normal Laboratory test finding (navigational concept) 56 yrs [facility] (Osmel Alvarez MD) Laboratory test finding (navigational concept) 49 mL/min [facility] (Osmel Alvarez MD) ID Date Data Source [id number] 08/05/2021 07:45:00 AM EDT [facility] Name Value Range Interpretation Code Description Data Maura rce(s) Supporting Document(s) COMPREHENSIVE METABOLIC PANEL [facility] COMPREHENSIVE METABOLIC PANEL Sodium [Moles/volume] in Serum or Plasma 139 mEq/L 134 - 153 [facility] Potassium [Moles/volume] in Serum or Plasma 4.1 mEq/L 3.6 - 5.0 [facility] Chloride [Moles/volume] in Serum or Plasma 101 mEq/L 98 - 107 [facility] Carbon dioxide, total [Moles/volume] in Serum or Plasma 28 MEQ/L 22 - 30 [facility] Glucose [Mass/volume] in Serum or Plasma 100 MG/DL 70 - 99 H [facility] BUN 18 MG/DL 7 - 21 [facility] Creatinine [Mass/volume] in Serum or Plasma 1.2 MG/DL 0.7 - 1.5 [facility] BUN/CREAT 15 8 - 27 [facility] Protein [Mass/volume] in Serum or Plasma 5.6 G/DL 6.3 - 8.2 L [facility] Albumin [Mass/volume] in Serum or Plasma 3.2 G/DL 3.9 - 5.0 L [facility] Globulin [Mass/volume] in Serum by calculation 2.4 GM/DL 2.4 - 3.2 [facility] A/G RATIO 1.3 0.8 - 2.0 [facility] Calcium [Mass/volume] in Serum or Plasma 8.7 MG/DL 8.4 - 10.2 [facility] Bilirubin.total [Mass/volume] in Serum or Plasma <0.7 MG/DL 0.2 - 1.3 [facility] Alkaline phosphatase [Enzymatic activity/volume] in Serum or Plasma 157 U/L 38 - 126 H [facility] Aspartate aminotransferase [Enzymatic activity/volume] in Serum or Plasma 30 U/L 5 - 40 [facility] Alanine aminotransferase [Enzymatic activity/volume] in Seru m or Plasma 25 U/L 7 - 56 [facility] Anion gap 3 in Serum or Plasma 10.0 mmol/L 8.0 - 16.0 [facility] AGE 56 yrs [facility] al NON-AA GFR [facility] mL[facility] AMER GFR 60 mL/min [facility] Male GFR In [...] >32 mL/min Normal ID Date Data Source [id number] 08/05/2021 07:45:00 AM T [facility] Name Value Range Interpretation Code Description Data Maura rce(s) Supporting Document(s) Magnesium [Mass/volume] in Serum or Plasma 1.8 MG/DL 1.7 - 2.2 [facility] ID Date Data Source [id number] 08/05/2021 07:31:00 AM EDT [facility] Name Value Range Interpretation Code Description Data Maura rce(s) Supporting Document(s) CBC W/AUTOMATED DIFF [facility] COMPLETE BLOOD COUNT Leukocytes [#/volume] in Blood by Automated count 4.7 10^3/uL 4.2 - 1 1.0 [facility] Erythrocytes [#/volume] in Blood by Automated count 2.51 10^6/uL 4. 20 - 5.40 L [facility] Hemoglobin [Mass/volume] in Blood 8.7 g/dL 12.0 - 16.0 L [facility] Hematocrit [Volume Fraction] of Blood by Automated count 26.3 % 3 7.0 - 47.0 L [facility] Erythrocyte mean corpuscular volume [Entitic volume] b y Automated count 104.8 fL 81.0 - 101 H [facility] Erythrocyte mean corpuscular hemoglobin [Entitic mass] by Automated count 34.7 pg 27.0 - 34.0 H [facility] Erythrocyte mean corpuscular hemoglobin concentration [Mass/volume] by Automated count 33.1 g/dL 31.0 - 36.0 [facility] Erythrocyte distribution width [Ratio] by Automated count 14.0 % 11.5 - 14.5 [facility] Platelets [#/volume] in Blood by Automated count 113 10^3/uL 150 - 45 0 L [facility] Platelet mean volume [Entitic volume] in Blood by Automated count 10.7 fL 7.4 - 10.4 H [facility] Neutrophils/100 leukocytes in Blood by Automated count 65.4 % 37. 0 - 80.0 [facility] Lymphocytes/100 leukocytes in Blood by Manual count 6.8 % 25.0 - 40.0 L [facility] Monocytes/100 leukocytes in Blood by Automated count 18.9 % 3.0 - 8.0 H [facility] Eosinophils/100 leukocytes in Blood by Automated count 7.2 % 0.0 - 7.0 H [facility] Basophils/100 leukocytes in Blood by Automated count 0.4 % 0.0 - 2.5 [facility] %IG 1.3 % 0.0 - 0.0 H [facility] al %NRBC 0.0 % 0.0 - 0.0 [facility] al Neutrophils [#/volume] in Blood by Automated count 3.09 10^3/uL 2.00 - 6.90 [facility] Lymphocytes [#/volume] in Blood by Automated count 0.32 10^3/uL 0.60 - 3.40 L [facility] Monocytes [#/volume] in Blood by Automated count 0.89 10^3/uL 0.00 - 0.90 [facility] Eosinophils [#/volume] in Blood by Automated count 0.34 10^3/uL 0.00 - 0.70 [facility] Basophils [#/volume] in Blood by Automated count 0.02 10^3/uL 0.00 - 0.20 [facility] #IG 0.06 10^3/uL 0.00 - 0.10 [facility] #NRBC 0.00 10^3/uL 0.00 - 0.00 [facility] MANUAL DIFF NOT INDICATED [facility] RBC MORPH NOT INDICATED [facility] spital ID Date Data Source [id number] 08/04/2021 05:33:00 PM EDT [facility] [address] [place] [address] PHONE: [phone] FAX: [phone] Name .................. : JUANITO Daniels Acct Number.................. : [id number] ROOM. ................. : [facility] MR Number ................... : [id number] Stay type ............. : I/P Discharge Date......... ... : Admit Date ......... : 08/01/21 Admit Phys .................... : KIM VANESSA Date of ....... : 1965 Family Phys ................... : REGINE GAIL Phone .................. : [phone] Age ................................ : 56 Film# .................. .:[id number] Sex ................................. : F Unsigned transcriptions are preliminary reports and do not represent a medical or legal document CT THORAX W/O CONTRAST [id number] COMPLETE:08/03/21 09:43 [id number] Reason for Exam: RT RIBCADGE METASTATIC DISEASE PLEURISY LEFT LUNG CT ABD & PELV W/O ORAL W/[place] [id number] COMPLETE:08/03/21 09:42 [id number] Reason for Exam: METASTATIC DISEASE PELVIS,BONE, LIVER CT CHEST ABDOMEN AND PELVIS WITHOUT IV CONTRAST INDICATION: Metastatic disease pelvis, bone, liver. Right rib cage metastatic disease. Pleurisy left lung. COMPARISON: CT chest 08/01/21. CT abdomen and pelvis 08/16/2011. IV CONTRAST: None One or more of the following dose reduction techniques were utilized in effectively lowering the radiation dose for this examination: Automated Exposure Control, Adjustment of the mA and/or kV accordin g to patient size, or Iterative reconstruction. CT CHEST: FINDINGS: LUNGS: Minimal atelectasis/scar right base. Right lung aeration is improved. There is persistent complete opacification of left upper lung airspace with air bronchograms now more extensive which may represent clearing mucous plugging. Improved aeration of left lower lobe with persistent areas of atelectasis/scar. Neoplasm cannot be excluded in the completely opacified areas. No definable mass. PLEURA AND PERICARDIUM: Trace of pleural fluid bilaterally similar to prior. No pneumothorax. MEDIASTINUM AND ADY: Left hilum is obscured by surrounding collapsed lung parenchyma. No right hilar mass or adenopathy. No mediastinal adenopathy. Prior study reported pulmonary emboli which will not be reliably assessed on noncontrast exam. CHEST WALL: Right chest port. No axillary adenopathy. Page 1 of 3 [facility] [address] [place] [address] PHONE: [phone] FAX: [phone] Name .................. : JUANITO Daniels Acct Number.................. : [id number] ROOM. ................. : [facility] MR Number ................... : [id number] Stay type ............. : I/P Discharge Date......... ... : Admit Date ......... : 08/01/21 Admit Phys .................... : KIM MENDEZ Date of ....... : 1965 Family Phys ................... : SEQUEIRA Phone .................. : [phone] Age .......... ...................... : 56 Film# .................. .:[id number] Sex ................................. : F Unsigned transcriptions are preliminary reports and do not represent a medical or legal document CT THORAX W/O CONTRAST [id number] COMPLETE:08/03/21 09:43 [id number] Reason for Exam: RT RIBCADGE METASTATIC DISEASE PLEURISY LEFT LUNG CT ABD & PELV W/[place] ORAL W/[place] [id number] COMPLETE:08/03/21 09:42 [id number] Reason for Exam: METASTATIC DISEASE PELVIS,BONE, LIVER Midthoracic compression fractures T7, T8, T9 and L1 as prior. Rib assessment is degraded by Gonzalez chu streak artifact in motion artifact. Bridging through the third and fourth ribs laterally more likely sequela of prior trauma. Sclerosis in the lateral sixth rib may represent metastasis or healed fracture. IMPRESSION: Possible sclerotic metastasis left sixth rib. No confirmed acute rib fractures low sensitivity will be limited for nondisplaced fractures. No acute spine fractures. Some improvement in aeration in left lung base. Increased left-sided air bronchograms which may represent decreased mucous plugging CT ABDOMEN AND PELVIS: LIVER/BILIARY: Despite the history no liver metastases are identified allowing for the lack of IV contrast. Unremarkable gallbladder. SPLEEN: Multiple granulomata. No lesions or abnormal enlargement. PANCREAS: Normal. ADRENALS: Normal bilaterally. KIDNEYS/: Normal kidneys without hydronephrosis. Grossly normal bladder. No significant abnormalities seen in the reproductive organs. BOWEL/GI: No bowel obstruction. No appendicitis, colitis, or diverticulitis. No free fluid, focal fluid collection or free air. NODES/RETROPERITONEUM: No adenopathy. No AAA. Page 2 of 3 [facility] [address] [place] [address] PHONE: [phone] FAX: [phone] Name .................. : JUANITO ROMAN Jeremiah nesser.................. : [id number] ROOM. ................. : [facility] MR Number ................... : [id number] Stay type ............. : I/P Discharge Date......... ... : Admit Date ......... : 08/01/21 Admit Phys .................... : KIM VANESSA Date of ....... : 1965 Family Phys ................... : SEQUEIRA Phone .................. : [phone] Age ................................ : 56 Film# .................. .:[id number] Sex ................................. 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 L1 and L4 compression fractures are not acute. Symphysis and SI joints are intact. Sclerotic changes in the ischia bilaterally and proximal right femur likely representing metastases. These are new since the 2010 CT. No acute fracture. IMPRESSION: Pelvic lesions likely representing metastatic disease new since remote prior CT abdomen and pelvis by corresponding with clinical history. No liver metastases are identified. No acute fracture. Electronically Reviewed and Signed By Doyle Leblanc MD , 08/04/21 17:33, SCB Transcribe Initials: REYES , Transcribe Date: 08/03/21 15:44, Dictation Date: Copy for: 002 [facility] Copy for: 710 MED REC Page 3 of 3 Name Value Range Interpretation Code Description Data Maura rce(s) Supporting Document(s) ID Date Data Source [id number] 08/04/2021 05:33:00 PM EDT [facility] [address] [place] [address] PHONE: [phone] FAX: [phone] Name .................. : JUANITO Daniels Acct Number.................. : [id number] ROOM. ................. : CCU2 MR Number ................... : [id number] Stay type ............. : I/P Discharge Date......... ... : Admit Date ......... : 08/01/21 Admit Phys .................... : KIM VANESSA Date of ....... : 1965 Family Phys ................... : SEQUEIRA Phone .................. : [phone] Age ................................ : 56 Film# .................. .:[id number] Sex ................................. : F Unsigned transcriptions are preliminary reports and do not represent a medical or legal document CT THORAX W/O CONTRAST [id number] COMPLETE:08/03/21 09:43 [id number] Reason for Exam: RT RIBCADGE METASTATIC DISEASE PLEURISY LEFT LUNG CT ABD & PELV W/O ORAL W/[place] [id number] COMPLETE:08/03/21 09:42 16357 Reason for Exam: METASTATIC DISEASE PELVIS,BONE, LIVER CT CHEST ABDOMEN AND PELVIS WITHOUT IV CONTRAST INDICATION: Metastatic disease pelvis, bone, liver. Right rib cage metastatic disease. Pleurisy left lung. COMPARISON: CT chest 08/01/21. CT abdomen and pelvis 08/16/2011. IV CONTRAST: None One or more of the following dose reduction techniques were utilized in effectively lowering the radiation dose for this examination: Automated Exposure Control, Adjustment of the mA and/or kV accordin g to patient size, or Iterative reconstruction. CT CHEST: FINDINGS: LUNGS: Minimal atelectasis/scar right base. Right lung aeration is improved. There is persistent complete opacification of left upper lung airspace with air bronchograms now more extensive which may represent clearing mucous plugging. Improved aeration of left lower lobe with persistent areas of atelectasis/scar. Neoplasm cannot be excluded in the completely opacified areas. No definable mass. PLEURA AND PERICARDIUM: Trace of pleural fluid bilaterally similar to prior. No pneumothorax. MEDIASTINUM AND ADY: Left hilum is obscured by surrounding collapsed lung parenchyma. No right hilar mass or adenopathy. No mediastinal adenopathy. Prior study reported pulmonary emboli which will not be reliably assessed on noncontrast exam. CHEST WALL: Right chest port. No axillary adenopathy. Page [address] 3 [place] [address] PHONE: [phone] FAX: [phone] Name .................. : JUANITO Daniels Acct Number.................. : [id number] ROOM. ................. : CCU2 Number ................... : [id number] Stay type ............. : I/P Discharge Date......... ... : Admit Date ......... : 08/01/21 Admit Phys .................... : KIM VANESSA Date of ....... : 1965 Family Phys ................... : SEQUEIRA Phone .................. : [phone] Age .......... ...................... : 56 Film# .................. .:[id number] Sex ................................. : F Unsigned transcriptions are preliminary reports and do not represent a medical or legal document CT THORAX W/O CONTRAST [id number] COMPLETE:08/03/21 09:43 [id number] Reason for Exam: RT RIBCADGE METASTATIC DISEASE PLEURISY LEFT LUNG CT ABD & PELV W/O ORAL W/[place] [id number] COMPLETE:08/03/21 09:42 94904 Reason for Exam: METASTATIC DISEASE PELVIS,BONE, LIVER Midthoracic compression fractures T7, T8, T9 and L1 as prior. Rib assessment is degraded by Gonzalez chu streak artifact in motion artifact. Bridging through the third and fourth ribs laterally more likely sequela of prior trauma. Sclerosis in the lateral sixth rib may represent metastasis or healed fracture. IMPRESSION: Possible sclerotic metastasis left sixth rib. No confirmed acute rib fractures low sensitivity will be limited for nondisplaced fractures. No acute spine fractures. Some improvement in aeration in left lung base. Increased left-sided air bronchograms which may represent decreased mucous plugging CT ABDOMEN AND PELVIS: LIVER/BILIARY: Despite the history no liver metastases are identified allowing for the lack of IV contrast. Unremarkable gallbladder. SPLEEN: Multiple granulomata. No lesions or abnormal enlargement. PANCREAS: Normal. ADRENALS: Normal bilaterally. KIDNEYS/: Normal kidneys without hydronephrosis. Grossly normal bladder. No significant abnormalities seen in the reproductive organs. BOWEL/GI: No bowel obstruction. No appendicitis, colitis, or diverticulitis. No free fluid, focal fluid collection or free air. NODES/RETROPERITONEUM: No adenopathy. No AAA. [address] [place] [address] PHONE: [phone] FAX: [phone] Name .................. : JUANITO Daniels Denyscar Jignesh nesser.................. : [id number] ROOM. ................. : CCU MR Number ................... : [id number] Stay type ............. : I/P Discharge Date......... ... : Admit Date ......... : 08/01/21 Admit Phys .................... : KIM VANESSA Date of ....... : 1965 Family Phys ................... : SEQUEIRA Phone .................. : [phone] Age ................................ : 56 Film# .................. .:[id number] Sex ................................. 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 L1 and L4 compression fractures are not acute. Symphysis and SI joints are intact. Sclerotic changes in the ischia bilaterally and proximal right femur likely representing metastases. These are new since the 2011 CT. No acute fracture. IMPRESSION: Pelvic lesions likely representing metastatic disease new since remote prior CT abdomen and pelvis by corresponding with clinical history. No liver metastases are identified. No acute fracture. Electronically Reviewed and Signed By Doyle Leblanc MD , 08/04/21 17:33, LARRY Transcribe Initials: REYES , Transcribe Date: 08/03/21 15:44, Dictation Date: Copy for: 002 [facility] Copy for: 710 [facility] REC Page 3 of 3 Name Value Range Interpretation Code Description Data Maura rce(s) Supporting Document(s) ID Date Data Source [id number] 08/04/2021 05:26:00 [place] [address] PHONE: [phone] FAX: [phone] Name .................. : JUANITO Daniels Acct Number.................. : [id number] ROOM. ................. : CCU2 Number ................... : [id number] Stay type ............. : O/P Discharge Date......... ... : Admit Date ......... : 08/01/21 Admit Phys .................... : KIM MENDEZ Date of ....... : 1965 Family Phys ................... : REGINE GAIL Phone .................. : [phone] Age ................................ : 56 Film# .................. .:[id number] Sex ................................. : F Unsigned transcriptions are preliminary reports and do not represent a medical or legal document DOPPLER VENOUS BILAT LEG [id number] COMPLETE:08/02/21 11:30 [id number] Reason for Exam: blood clots ULTRASOUND BILATERAL LOWER EXTREMITY VENOUS INDICATION: Blood clots. Per technologist history of PTE. No DVT history. On blood thinners. Bilateral leg tenderness. COMPARISON: None Duplex imaging with color flow Doppler and spectral analysis was used to study the deep venous system from common femoral veins through the popliteal veins into tibioperoneal trunks. A combination of compressibility and flow augmentation was utilized to assess patency. RIGHT LEG The examination shows no deep venous thrombosis. Patent common femoral, femoral, and popliteal veins. Patent tibial peroneal trunk. LEFT LEG The examination shows no deep venous thrombosis. Patent common femoral, femoral, and popliteal veins. Patent tibial peroneal trunk. IMPRESSION: No deep venous thrombosis. Electronically Reviewed and Signed By Doyle Leblanc MD , 08/04/21 17:26, SCB Transcribe Initials: REYES , Transcribe Date: 08/02/21 21:48, Dictation Date: Copy for: 002 [facility] Copy for: 710 [facility] REC Page 1 of 1 Name Value Range Interpretation Code Description Data Maura rce(s) Supporting Document(s) ID Date Data Source [id number] 08/04/2021 06:31:00 AM EDT [facility] (Osmel Alvarez MD) Name Value Range Interpretation Code Description Data Maura rce(s) Supporting Document(s) Iron [Mass/volume] in Serum or Plasma 29 ug/dL 42-135 Below low normal [facility] (Osmel Alvarez MD) Magnesium [Mass/volume] in Serum or Plasma 1.4 mg/dL 1.7-2.2 Belo w low normal [facility] (Osmel Alvarez MD) ID Date Data Source [id number] 08/04/2021 06:31:00 AM EDT [facility] (Osmel Alvarez MD) Name Value Range Interpretation Code Description Data Maura rce(s) Supporting Document(s) Laboratory test finding (navigational concept) Laboratory test result [facility] (Osmel Alvarez MD) COMPREHENSIVE METABOLIC PANEL Laboratory test finding (navigational concept) 138 meq/L 134-153 [facility] (Osmel Alvarez MD) Laboratory test finding (navigational concept) 102 meq/L 98-107 [facility] (Osmel Alvarez MD) Laboratory test finding (navigational concept) 27 meq/L 22-30 [facility] (Osmel Alvarez MD) Laboratory test finding (navigational concept) 4.1 meq/L 3.6-5.0 [facility] (Osmel Alvarez MD) Laboratory test finding (navigational concept) 1.2 mg/dL 0.7-1.5 [facility] (Osmel Alvarez MD) Laboratory test finding (navigational concept) 99 mg/dL 70-99 [facility] (Osmel Alvarez MD) Laboratory test finding (navigational concept) 18 mg/dL 7-21 [facility] (Osmel Alvarez MD) Laboratory test finding (navigational concept) 3.3 g/dL 3 .9-5.0 Below low normal [facility] (Osmel Alvarez MD) Laboratory test finding (navigational concept) 5.4 g/dL 6 .3-8.2 Below low normal [facility] (Osmel Alvarez MD) Laboratory test finding (navigational concept) 15 8-27 [facility] (Osmel Alvarez MD) Laboratory test finding (navigational concept) 2.1 GM/DL 2 .4-3.2 Below low normal [facility] (Osmel Alvarez MD) Laboratory test finding (navigational concept) 1.6 0.8-2.0 [facility] (Osmel Alvarez MD) Laboratory test finding (navigational concept) 8.7 mg/dL 8.4-10.2 [facility] (Osmel Alvarez MD) Laboratory test finding (navigational concept) Laboratory test resu lt 0.2-1.3 [facility] (Osmel Alvarez MD) Laboratory test finding (navigational concept) 133 U/L 38-126 Above high normal [facility] (Osmel Alvarez MD) Laboratory test finding (navigational concept) 28 U/L 5-40 [facility] (Osmel Alvarez MD) Laboratory test finding (navigational concept) 9.0 mmol/L 8.0-16.0 [facility] (Osmel Alvarez MD) Laboratory test finding (navigational concept) 56 yrs [facility] (Osmel Alvarez MD) Laboratory test finding (navigational concept) 23 U/L 7-56 [facility] (Osmel Alvarez MD) Laboratory test finding (navigational concept) 49 mL/min [facility] (Osmel Alvarez MD) Laboratory test finding (navigational concept) 60 mL/min [facility] (Osmel Alvarez MD) Male GFR [...] >32 mL/min Normal ID Date Data Source [id number] 08/04/2021 06:31:00 AM EDT [facility] (Osmel Alvarez MD) Name Value Range Interpretation Code Description Data Maura rce(s) Supporting Document(s) Laboratory test finding (navigational concept) Laboratory test result [facility] (Osmel Alvarez MD) COMPLETE BLOOD COUNT Laboratory test finding (navigational concept) 4.8 10^3/uL 4.2-11.0 [facility] (Osmel Alvarez MD) Laboratory test finding (navigational concept) 8.4 g/dL 1 2.0-16.0 Below low normal [facility] (Omsel Alvarez MD) Laboratory test finding (navigational concept) 2.47 10^6/uL 4 .20-5.40 Below low normal [facility] (Osmel Alvarez MD) Laboratory test finding (navigational concept) 104.9 fL 8 1.0-101 Above high normal [facility] (Osmel Alvarez MD) Laboratory test finding (navigational concept) 25.9 % 3 7.0-47.0 Below low normal [facility] (Osmel Alvarez MD) Laboratory test finding (navigational concept) 34.0 pg 27.0-34.0 [facility] (Osmel Alvarez MD) Laboratory test finding (navigational concept) 32.4 g/dL 31.0-36.0 [facility] (Osmel Alvarez MD) Laboratory test finding (navigational concept) 14.2 % 11.5-14.5 [facility] (Osmel Alvarez MD) Laboratory test finding (navigational concept) 92 10^3/uL 1 50-450 Below low normal [facility] (Osmel Alvarez MD) Laboratory test finding (navigational concept) 69.5 % 37.0-80.0 [facility] (Osmel Alvarez MD) Laboratory test finding (navigational concept) 7.6 % 25.0-40 .0 Below low normal [facility] (Osmel Alvarez MD) Laboratory test finding (navigational concept) 10.6 fL 7 .4-10.4 Above high normal [facility] (Osmel Alvarez MD) Laboratory test finding (navigational concept) 0.4 % 0.0-2.5 [facility] (Osmel Alvarez MD) Laboratory test finding (navigational concept) 14.3 % 3.0-8.0 Above high normal [facility] (Osmel Alvarez MD) Laboratory test finding (navigational concept) 6.7 % 0.0-7.0 [facility] (Osmel Alvarez MD) Laboratory test finding (navigational concept) 1.5 % 0.0-0.0 Above high normal [facility] (Osmel Alvarez MD) Laboratory test finding (navigational concept) 3.30 10^3/uL 2.00-6.90 [facility] (Osmel Alvarez MD) Laboratory test finding (navigational concept) 0.0 % 0.0-0.0 [facility] (Osmel Alvarez MD) Laboratory test finding (navigational concept) 0.36 10^3/uL 0 .60-3.40 Below low normal [facility] (Osmel Alvarez MD) Laboratory test finding (navigational concept) 0.32 10^3/uL 0.00-0.70 [facility] (Osmel Alvarez MD) Laboratory test finding (navigational concept) 0.68 10^3/uL 0.00-0.90 [facility] (Osmel Alvarez MD) Laboratory test finding (navigational concept) 0.02 10^3/uL 0.00-0.20 [facility] (Osmel Alvarez MD) Laboratory test finding (navigational concept) 0.07 10^3/uL 0.00-0.10 [facility] (Osmel Alvarez MD) Laboratory test finding (navigational concept) 0.00 10^3/uL 0.00-0.00 [facility] (Osmel Alvarez MD) Laboratory test finding (navigational concept) Laboratory test result [facility] (Osmel Alvarez MD) Laboratory test finding (navigational concept) Laboratory test result [facility] (Osmel Alvarez MD) ID Date Data Source [id number] 08/04/2021 01:55:00 PM EDT [facility] Name Value Range Interpretation Code Description Data Maura rce(s) Supporting Document(s) Iron [Mass/volume] in Serum or Plasma 29 UG/DL 42 - 135 L [facility] ID Date Data Source [id number] 08/04/2021 07:57:00 AM EDT [facility] Name Value Range Interpretation Code Description Data Maura rce(s) Supporting Document(s) Magnesium [Mass/volume] in Serum or Plasma 1.4 MG/DL 1.7 - 2.2 L [facility] ID Date Data Source [id number] 08/04/2021 07:57:00 AM EDT [facility] Name Value Range Interpretation Code Description Data Maura rce(s) Supporting Document(s) COMPREHENSIVE METABOLIC PANEL [facility] COMPREHENSIVE METABOLIC PANEL Sodium [Moles/volume] in Serum or Plasma 138 mEq/L 134 - 153 [facility] Potassium [Moles/volume] in Serum or Plasma 4.1 mEq/L 3.6 - 5.0 [facility] Chloride [Moles/volume] in Serum or Plasma 102 mEq/L 98 - 107 [facility] Carbon dioxide, total [Moles/volume] in Serum or Plasma 27 MEQ/L 22 - 30 [facility] Glucose [Mass/volume] in Serum or Plasma 99 MG/DL 70 - 99 [facility] BUN 18 MG/DL 7 - 21 [facility] al Creatinine [Mass/volume] in Serum or Plasma 1.2 MG/DL 0.7 - 1.5 [facility] BUN/CREAT 15 8 - 27 [facility] Protein [Mass/volume] in Serum or Plasma 5.4 G/DL 6.3 - 8.2 L [facility] Albumin [Mass/volume] in Serum or Plasma 3.3 G/DL 3.9 - 5.0 L [facility] Globulin [Mass/volume] in Serum by calculation 2.1 GM/DL 2.4 - 3.2 L [facility] A/G RATIO 1.6 0.8 - 2.0 [facility] Calcium [Mass/volume] in Serum or Plasma 8.7 MG/DL 8.4 - 10.2 [facility] Bilirubin.total [Mass/volume] in Serum or Plasma <0.7 MG/DL 0.2 - 1.3 [facility] Alkaline phosphatase [Enzymatic activity/volume] in Serum or Plasma 133 U/L 38 - 126 H [facility] Aspartate aminotransferase [Enzymatic activity/volume] in Serum or Plasma 28 U/L 5 - 40 [facility] Alanine aminotransferase [Enzymatic activity/volume] in Seru m or Plasma 23 U/L 7 - 56 [facility] Anion gap 3 in Serum or Plasma 9.0 mmol/L 8.0 - 16.0 [facility] 56 [facility] A[facility] AMER GFR 60 mL/min [facility] Male GFR In [...] >32 mL/min Normal ID Date Data Source [id number] 08/04/2021 07:33:00 AM EDT [facility] Name Value Range Interpretation Code Description Data Maura rce(s) Supporting Document(s) CBC W/AUTOMATED DIFF [facility] COMPLETE BLOOD COUNT Leukocytes [#/volume] in Blood by Automated count 4.8 10^3/uL 4.2 - 1 1.0 [facility] Erythrocytes [#/volume] in Blood by Automated count 2.47 10^6/uL 4. 20 - 5.40 L [facility] Hemoglobin [Mass/volume] in Blood 8.4 g/dL 12.0 - 16.0 L [facility] Hematocrit [Volume Fraction] of Blood by Automated count 25.9 % 3 7.0 - 47.0 L [facility] Erythrocyte mean corpuscular volume [Entitic volume] b y Automated count 104.9 fL 81.0 - 101 H [facility] Erythrocyte mean corpuscular hemoglobin [Entitic mass] by Automated count 34.0 pg 27.0 - 34.0 [facility] Erythrocyte mean corpuscular hemoglobin concentration [Mass/volume] by Automated count 32.4 g/dL 31.0 - 36.0 [facility] Erythrocyte distribution width [Ratio] by Automated count 14.2 % 11.5 - 14.5 [facility] Platelets [#/volume] in Blood by Automated count 92 10^3/uL 150 - 450 L [facility] Platelet mean volume [Entitic volume] in Blood by Automated count 10.6 fL 7.4 - 10.4 H [facility] Neutrophils/100 leukocytes in Blood by Automated count 69.5 % 37. 0 - 80.0 [facility] Lymphocytes/100 leukocytes in Blood by Manual count 7.6 % 25.0 - 40.0 L [facility] Monocytes/100 leukocytes in Blood by Automated count 14.3 % 3.0 - 8.0 H [facility] Eosinophils/100 leukocytes in Blood by Automated count 6.7 % 0.0 - 7.0 [facility] Basophils/100 leukocytes in Blood by Automated count 0.4 % 0.0 - 2.5 [facility] %IG 1.5 % 0.0 - 0.0 H [facility] %NRBC 0.0 % 0.0 - 0.0 [facility] al Neutrophils [#/volume] in Blood by Automated count 3.30 10^3/uL 2.00 - 6.90 [facility] Lymphocytes [#/volume] in Blood by Automated count 0.36 10^3/uL 0.60 - 3.40 L [facility] Monocytes [#/volume] in Blood by Automated count 0.68 10^3/uL 0.00 - 0.90 [facility] Eosinophils [#/volume] in Blood by Automated count 0.32 10^3/uL 0.00 - 0.70 [facility] Basophils [#/volume] in Blood by Automated count 0.02 10^3/uL 0.00 - 0.20 [facility] #IG 0.07 10^3/uL 0.00 - 0.10 [facility] #NRBC 0.00 10^3/uL 0.00 - 0.00 [facility] MANUAL DIFF NOT INDICATED [facility] RBC MORPH NOT INDICATED [facility] ID Date Data Source [id number] 08/03/2021 05:12:00 AM EDT [facility] (Osmel Alvarez MD) Name Value Range Interpretation Code Description Data Maura rce(s) Supporting Document(s) Laboratory test finding (navigational concept) Laboratory test result [facility] (Osmel Alvarez MD) Is patient fasting? N Laboratory test finding (navigational concept) 5.5 10^3/uL 4.2-11.0 [facility] (Osmel Alvarez MD) Is patient fasting? N Laboratory test finding (navigational concept) 2.46 10^6/uL 4 .20-5.40 Below low normal [facility] (Osmel Alvarez MD) Is patient fasting? N Laboratory test finding (navigational concept) 25.5 % 3 7.0-47.0 Below low normal [facility] (Osmel Alvarez MD) Is patient fasting? N Laboratory test finding (navigational concept) 8.6 g/dL 1 2.0-16.0 Below low normal [facility] (Osmel Alvarez MD) Is patient fasting? N Laboratory test finding (navigational concept) 35.0 pg 2 7.0-34.0 Above high normal [facility] (Osmel Alvarez MD) Is patient fasting? N Laboratory test finding (navigational concept) 103.7 fL 8 1.0-101 Above high normal [facility] (Osmel Alvarez MD) Is patient fasting? N Laboratory test finding (navigational concept) 93 10^3/uL 1 50-450 Below low normal [facility] (Osmel Alvarez MD) Is patient fasting? N Laboratory test finding (navigational concept) 33.7 g/dL 31.0-36.0 [facility] (Osmel Alvarez MD) Is patient fasting? N Laboratory test finding (navigational concept) 14.2 % 11.5-14.5 [facility] (Osmel Alvarez MD) Is patient fasting? N Laboratory test finding (navigational concept) 76.5 % 37.0-80.0 [facility] (Osmel Alvarez MD) Is patient fasting? N Laboratory test finding (navigational concept) 10.0 fL 7.4-10.4 [facility] (Osmel Alvarez MD) Is patient fasting? N Laboratory test finding (navigational concept) 5.4 % 25.0-40 .0 Below low normal [facility] (Osmel Alvarez MD) Is patient fasting? N Laboratory test finding (navigational concept) 12.1 % 3.0-8.0 Above high normal [facility] (Osmel Alvarez MD) Is patient fasting? N Laboratory test finding (navigational concept) 0.4 % 0.0-2.5 [facility] (Osmel Alvarez MD) Is patient fasting? N Laboratory test finding (navigational concept) 4.5 % 0.0-7.0 [facility] (Osmel Alvarez MD) Is patient fasting? N Laboratory test finding (navigational concept) 1.1 % 0.0-0.0 Above high normal [facility] (Osmel Alvarez MD) Is patient fasting? N Laboratory test finding (navigational concept) 0.0 % 0.0-0.0 [facility] (Osmel Alvarez MD) Is patient fasting? N Laboratory test finding (navigational concept) 0.30 10^3/uL 0 .60-3.40 Below low normal [facility] (Osmel Alvarez MD) Is patient fasting? N Laboratory test finding (navigational concept) 0.67 10^3/uL 0.00-0.90 [facility] (Osmel Alvarez MD) Is patient fasting? N Laboratory test finding (navigational concept) 4.23 10^3/uL 2.00-6.90 [facility] (Osmel Alvarez MD) Is patient fasting? N Laboratory test finding (navigational concept) 0.02 10^3/uL 0.00-0.20 [facility] (Osmel Alvarez MD) Is patient fasting? N Laboratory test finding (navigational concept) 0.25 10^3/uL 0.00-0.70 [facility] (Osmel Alvarez MD) Is patient fasting? N Laboratory test finding (navigational concept) 0.00 10^3/uL 0.00-0.00 [facility] (Osmel Alvarez MD) Is patient fasting? N Laboratory test finding (navigational concept) 0.06 10^3/uL 0.00-0.10 [facility] (Osmel Alvarez MD) Is patient fasting? N Laboratory test finding (navigational concept) Laboratory test result [facility] (Osmel Alvarez MD) Is patient fasting? N Laboratory test finding (navigational concept) 81 % 37-80 Above high normal [facility] (Osmel Alvarez MD) Is patient fasting? N Laboratory test finding (navigational concept) 6 % 25-40 Below low normal [facility] (Osmel Alvarez MD) Is patient fasting? N Laboratory test finding (navigational concept) 9 % 3-8 Above high normal [facility] (Osmel Alvarez MD) Is patient fasting? N Laboratory test finding (navigational concept) 4 % 0-7 [facility] (Osmel Alvarez MD) Is patient fasting? N Laboratory test finding (navigational concept) Laboratory test result [facility] (Osmel Alvarez MD) Is patient fasting? N Laboratory test finding (navigational concept) Laboratory test r esult Abnormal (applies to non-numeric results) [facility] (Osmel Alvarez MD ) Is patient fasting? N Laboratory test finding (navigational concept) Laboratory test r esult Abnormal (applies to non-numeric results) [facility] (Osmel Alvarez MD ) Is patient fasting? N Laboratory test finding (navigational concept) Laboratory test r esult Abnormal (applies to non-numeric results) [facility] (Osmel Alvarez MD ) Is patient fasting? N Laboratory test finding (navigational concept) Laboratory test r esult Abnormal (applies to non-numeric results) [facility] (Osmel Alvarez MD ) Is patient fasting? N Laboratory test finding (navigational concept) Laboratory test r esult Abnormal (applies to non-numeric results) [facility] (Osmel Alvarez MD ) Is patient fasting? N Laboratory test finding (navigational concept) Laboratory test r esult Abnormal (applies to non-numeric results) [facility] (Osmel Alvarez MD ) Is patient fasting? N ID Date Data Source [id number] 08/03/2021 05:12:00 AM EDT [facility] (Osmel Alvarez MD) Name Value Range Interpretation Code Description Data Maura rce(s) Supporting Document(s) Magnesium [Mass/volume] in Serum or Plasma 1.6 mg/dL 1.7-2.2 [place] w low normal [facility] (Osmel Alvarez MD) Is patient fasting? N ID Date Data Source [id number] 08/03/2021 05:12:00 AM EDT [facility] (Osmel Alvarez MD) Name Value Range Interpretation Code Description Data Maura rce(s) Supporting Document(s) Laboratory test finding (navigational concept) Laboratory test result [facility] (Osmel Alvarez MD) Is patient fasting? N Laboratory test finding (navigational concept) 4.1 meq/L 3.6-5.0 [facility] (Osmel Alvarez MD) Is patient fasting? N Laboratory test finding (navigational concept) 137 meq/L 134-153 [facility] (Osmel Alvarez MD) Is patient fasting? N Laboratory test finding (navigational concept) 27 meq/L 22-30 [facility] (Osmel Alvarez MD) Is patient fasting? N Laboratory test finding (navigational concept) 99 meq/L 98-107 [facility] (Osmel Alvarez MD) Is patient fasting? N Laboratory test finding (navigational concept) 102 mg/dL 7 0-99 Above high normal [facility] (Osmle Alvarez MD) Is patient fasting? N Laboratory test finding (navigational concept) 18 mg/dL 7-21 [facility] (Osmel Alvarez MD) Is patient fasting? N Laboratory test finding (navigational concept) 1.2 mg/dL 0.7-1.5 [facility] (Osmel Alvarez MD) Is patient fasting? N Laboratory test finding (navigational concept) 15 8-27 [facility] (Osmel Alvarez MD) Is patient fasting? N Laboratory test finding (navigational concept) 5.2 g/dL 6 .3-8.2 Below low normal [facility] (Osmel Alvarez MD) Is patient fasting? N Laboratory test finding (navigational concept) 3.2 g/dL 3 .9-5.0 Below low normal [facility] (Osmel Alvarez MD) Is patient fasting? N Laboratory test finding (navigational concept) 2.0 GM/DL 2 .4-3.2 Below low normal [facility] (Osmel Alvarez MD) Is patient fasting? N Laboratory test finding (navigational concept) 1.6 0.8-2.0 [facility] (Osmel Alvarez MD) Is patient fasting? N Laboratory test finding (navigational concept) 8.6 mg/dL 8.4-10.2 [facility] (Osmel Alvarez MD) Is patient fasting? N Laboratory test finding (navigational concept) Laboratory test resu lt 0.2-1.3 [facility] (Osmel Alvarez MD) Is patient fasting? N Laboratory test finding (navigational concept) 105 U/L 38-126 [facility] (Osmel Alvarez MD) Is patient fasting? N Laboratory test finding (navigational concept) 23 U/L 5-40 [facility] (Osmel Alvarez MD) Is patient fasting? N Laboratory test finding (navigational concept) 17 U/L 7-56 [facility] (Osmel Alvarez MD) Is patient fasting? N Laboratory test finding (navigational concept) 56 yrs [facility] (Osmel Alvarez MD) Is patient fasting? N Laboratory test finding (navigational concept) 11.0 mmol/L 8.0-16.0 [facility] (Osmel Alvarez MD) Is patient fasting? N Laboratory test finding (navigational concept) 60 mL/min [facility] (Osmel Alvarez MD) Is patient fasting? N Laboratory test finding (navigational concept) 49 mL/min [facility] (Osmel Alvarez MD) Is patient fasting? N ID Date Data Source [id number] 08/03/2021 07:01:00 AM EDT [facility] Name Value Range Interpretation Code Description Data Maura rce(s) Supporting Document(s) CBC W/AUTOMATED DIFF [facility] COMPLETE BLOOD COUNT Leukocytes [#/volume] in Blood by Automated count 5.5 10^3/uL 4.2 - 1 1.0 [facility] Erythrocytes [#/volume] in Blood by Automated count 2.46 10^6/uL 4. 20 - 5.40 L [facility] Hemoglobin [Mass/volume] in Blood 8.6 g/dL 12.0 - 16.0 L [facility] Hematocrit [Volume Fraction] of Blood by Automated count 25.5 % 3 7.0 - 47.0 L [facility] Erythrocyte mean corpuscular volume [Entitic volume] b y Automated count 103.7 fL 81.0 - 101 H [facility] Erythrocyte mean corpuscular hemoglobin [Entitic mass] by Automated count 35.0 pg 27.0 - 34.0 H [facility] Erythrocyte mean corpuscular hemoglobin concentration [Mass/volume] by Automated count 33.7 g/dL 31.0 - 36.0 [facility] Erythrocyte distribution width [Ratio] by Automated count 14.2 % 11.5 - 14.5 [facility] Platelets [#/volume] in Blood by Automated count 93 10^3/uL 150 - 450 L [facility] Platelet mean volume [Entitic volume] in Blood by Automated count 10.0 fL 7.4 - 10.4 [facility] Neutrophils/100 leukocytes in Blood by Automated count 76.5 % 37. 0 - 80.0 [facility] Lymphocytes/100 leukocytes in Blood by Manual count 5.4 % 25.0 - 40.0 L [facility] Monocytes/100 leukocytes in Blood by Automated count 12.1 % 3.0 - 8.0 H [facility] Eosinophils/100 leukocytes in Blood by Automated count 4.5 % 0.0 - 7.0 [facility] Basophils/100 leukocytes in Blood by Automated count 0.4 % 0.0 - 2.5 [facility] %IG 1.1 % 0.0 - 0.0 H [facility] %NRBC 0.0 % 0.0 - [facility] in Blood by Automated count 4.23 10^3/uL 2.00 - 6.90 [facility] Lymphocytes [#/volume] in Blood by Automated count 0.30 10^3/uL 0.60 - 3.40 L [facility] Monocytes [#/volume] in Blood by Automated count 0.67 10^3/uL 0.00 - 0.90 [facility] Eosinophils [#/volume] in Blood by Automated count 0.25 10^3/uL 0.00 - 0.70 [facility] Basophils [#/volume] in Blood by Automated count 0.02 10^3/uL 0.00 - 0.20 [facility] #IG 0.06 10^3/uL 0.00 - 0.10 [facility] #NRBC 0.00 10^3/uL 0.00 - 0.00 [facility] MANUAL DIFF SEE BELOW [facility] ital Segmented neutrophils/100 leukocytes in Blood by Manual count 81 % 37 - 80 H [facility] %LYMPH 6 % 25 - 40 L [facility] %MONO 9 % 3 - 8 H [facility] %EOS 4 % 0 - 7 [facility] RBC MORPH SEE BELOW [facility] Anisocytosis [Presence] in Blood by Light microscopy 1+ SHAUNA L: NONE SEEN A [facility] Macrocytes [Presence] in Blood by Light microscopy 1+ NORMAL: NONE SEEN A [facility] Poikilocytosis [Presence] in Blood by Light microscopy 1+ NOR MAL: NONE SEEN A [facility] { SICKLE CELL (NORMAL: NONE SEEN ) Ovalocytes [Presence] in Blood by Light microscopy 1+ NORMAL: NONE SEEN A [facility] Neutrophils.hypersegmented [Presence] in Blood by Light micr oscopy 2+ NORMAL: NONE SEEN A [facility] Platelet adequacy [Presence] in Blood by Light microscopy DE CREASED NORMAL: NORMAL A [facility] COMMENT: ID Date Data Source [id number] 08/03/2021 06:43:00 AM EDT [facility] Name Value Range Interpretation Code Description Data Maura rce(s) Supporting Document(s) Magnesium [Mass/volume] in Serum or Plasma 1.6 MG/DL 1.7 - 2.2 L [facility] ID Date Data Source [id number] 08/03/2021 06:43:00 AM EDT [facility] Name Value Range Interpretation Code Description Data Maura rce(s) Supporting Document(s) COMPREHENSIVE METABOLIC PANEL [facility] COMPREHENSIVE METABOLIC PANEL Sodium [Moles/volume] in Serum or Plasma 137 mEq/L 134 - 153 [facility] Potassium [Moles/volume] in Serum or Plasma 4.1 mEq/L 3.6 - 5.0 [facility] Chloride [Moles/volume] in Serum or Plasma 99 mEq/L 98 - 107 [facility] Carbon dioxide, total [Moles/volume] in Serum or Plasma 27 MEQ/L 22 - 30 [facility] Glucose [Mass/volume] in Serum or Plasma 102 MG/DL 70 - 99 H [facility] BUN 18 MG/DL 7 - 21 [facility] al Creatinine [Mass/volume] in Serum or Plasma 1.2 MG/DL 0.7 - 1.5 [facility] BUN/CREAT 15 8 - 27 [facility] Protein [Mass/volume] in Serum or Plasma 5.2 G/DL 6.3 - 8.2 L [facility] Albumin [Mass/volume] in Serum or Plasma 3.2 G/DL 3.9 - 5.0 L [facility] Globulin [Mass/volume] in Serum by calculation 2.0 GM/DL 2.4 - 3.2 L [facility] A/G RATIO 1.6 0.8 - 2.0 [facility] Calcium [Mass/volume] in Serum or Plasma 8.6 MG/DL 8.4 - 10.2 [facility] Bilirubin.total [Mass/volume] in Serum or Plasma <0.7 MG/DL 0.2 - 1.3 [facility] Alkaline phosphatase [Enzymatic activity/volume] in Serum or Plasma 105 U/L 38 - 126 [facility] Aspartate aminotransferase [Enzymatic activity/volume] in Serum or Plasma 23 U/L 5 - 40 [facility] Alanine aminotransferase [Enzymatic activity/volume] in Seru m or Plasma 17 U/L 7 - 56 [facility] Anion gap 3 in Serum or Plasma 11.0 mmol/L 8.0 - 16.0 [facility]GE 56 [facility] AMER GFR 60 mL/min [facility] Male GFR In [...] >32 mL/min Normal ID Date Data Source [id number] 08/01/2021 12:06:00 [place] [address] PHONE: [phone] FAX: [phone] Name .................. : JUANITO Daniels Acct Number.................. : [id number] ROOM. ................. : TR-06 MR Number ................... : [id number] Stay type ............. : E/R Discharge Date......... ... : Admit Date ......... : 07/05 07/24 Admit Phys .................... : LAVERNE STUBBS Date of ....... : 1965 Family Phys ................... : SEQUEIRA Phone .................. : [phone] Age ................................ : 56 Film# .................. .:[id number] Sex ................................. : F Unsigned transcriptions are preliminary reports and do not represent a medical or legal document CHEST PORTABLE [id number] COMPLETE:08/01/21 07:52 09567 Reason(s): Chest Pain PORTABLE CHEST SINGLE VIEW 8:10 AM HISTORY: Chest pain COMPARISON: 07/31/2021 FINDINGS: Mediastinum is shifted to the left. There is complete opacification of the left hemithorax. This is unchanged. The right lung is clear. Mild blunting of the right costophrenic angle unchanged. Right internal jugular central venous catheter is present which is unchanged. Paraspinal rods in the thoracic spine unchanged. IMPRESSION: Complete opacification of the left hemithorax which is likely a combination of pleural fluid and collapsed left lung. Small right effusion. These findings are unchanged. Electronically Reviewed and Signed By John Ya MD , 08/01/21 12:06, JWWalter Transcribe Initials: NARESH, Transcribe Date: 08/01/21 08:43, Dictation Date: Copy for: EMERGENCY DEPT via modem Copy for: 710 MED REC Page 1 of 1 Name Value Range Interpretation Code Description Data Maura rce(s) Supporting Document(s) ID Date Data Source [id number] 08/02/2021 06:36:00 AM EDT [facility] (Osmel Alvarez MD) Name Value Range Interpretation Code Description Data Maura rce(s) Supporting Document(s) Laboratory test finding (navigational concept) Laboratory test result [facility] (Osmel Alvarez MD) COMPREHENSIVE METABOLIC PANEL Laboratory test finding (navigational concept) 136 meq/L 134-153 [facility] (Osmel Alvarez MD) Laboratory test finding (navigational concept) 4.4 meq/L 3.6-5.0 [facility] (Osmel Alvarez MD) Laboratory test finding (navigational concept) 30 meq/L 22-30 [facility] (Osmel Alvarez MD) Laboratory test finding (navigational concept) 102 meq/L 98-107 [facility] (Osmel Alvarez MD) Laboratory test finding (navigational concept) 104 mg/dL 7 0-99 Above high normal [facility] (Osmel Alvarez MD) Laboratory test finding (navigational concept) 16 mg/dL 7-21 [facility] (Osmel Alvarez MD) Laboratory test finding (navigational concept) 1.2 mg/dL 0.7-1.5 [facility] (Osmel Alvarez MD) Laboratory test finding (navigational concept) 5.4 g/dL 6 .3-8.2 Below low normal [facility] (Osmel Alvarez MD) Laboratory test finding (navigational concept) 13 8-27 [facility] (Osmel Alvarez MD) Laboratory test finding (navigational concept) 3.3 g/dL 3 .9-5.0 Below low normal [facility] (Osmel Alvarez MD) Laboratory test finding (navigational concept) 2.1 GM/DL 2 .4-3.2 Below low normal [facility] (Osmel Alvarez MD) Laboratory test finding (navigational concept) 1.6 0.8-2.0 [facility] (Osmel Alvarez MD) Laboratory test finding (navigational concept) 101 U/L 38-126 [facility] (Osmel Alvarez MD) Laboratory test finding (navigational concept) 8.5 mg/dL 8.4-10.2 [facility] (Osmel Alvarez MD) Laboratory test finding (navigational concept) Laboratory test resu lt 0.2-1.3 [facility] (Osmel Alvarez MD) Laboratory test finding (navigational concept) 4.0 mmol/L 8 .0-16.0 Below low normal [facility] (Osmel Alvarez MD) Laboratory test finding (navigational concept) 20 U/L 5-40 [facility] (Osmel Alvarez MD) Laboratory test finding (navigational concept) 15 U/L 7-56 [facility] (Osmel Alvarez MD) Laboratory test finding (navigational concept) 56 yrs [facility] (Osmel Alvarez MD) Laboratory test finding (navigational concept) 49 mL/min [facility] (Osmel Alvarez MD) Laboratory test finding (navigational concept) 60 mL/min [facility] (Osmel Alvarez MD) Male GFR [...] >32 mL/min Normal ID Date Data Source [id number] 08/02/2021 06:36:00 AM EDT [facility] (Osmel Alvarez MD) Name Value Range Interpretation Code Description Data Maura rce(s) Supporting Document(s) Iron [Mass/volume] in Serum or Plasma 25 ug/dL 42-135 Below low normal [facility] (Osmel Alvarez MD) Natriuretic peptide.B prohormone N-Terminal [Mass/volu me] in Serum or Plasma 2923 pg/mL 0-125 Above high normal [facility] (Osmel Alvarez MD) Cobalamin (Vitamin B12) [Mass/volume] in Serum or Plasma 346 pg/mL 2 32-1245 [facility] (Osmel Alvarez MD) ID Date Data Source [id number] 08/02/2021 06:36:00 AM EDT [facility] (Osmel Alvarez MD) Name Value Range Interpretation Code Description Data Maura rce(s) Supporting Document(s) Fibrin D-dimer [Presence] in Platelet poor plasma 3.59 ug/mL 0.27-0.50 Above high normal [facility] (Osmel Alvarez MD) Lactate [Mass/volume] in Serum or Plasma 0.7 mmol/L 0.2-2.2 [facility] (Osmel Alvarez MD) Magnesium [Mass/volume] in Serum or Plasma 1.7 mg/dL 1.7-2.2 [facility] (Osmel Alvarez MD) ID Date Data Source [id number] 08/02/2021 06:36:00 AM EDT [facility] (Osmel Alvarez MD) Name Value Range Interpretation Code Description Data Maura rce(s) Supporting Document(s) Laboratory test finding (navigational concept) Laboratory test result [facility] (Osmel Alvarez MD) COMPLETE BLOOD COUNT Laboratory test finding (navigational concept) 7.7 10^3/uL 4.2-11.0 [facility] (Osmel Alvarez MD) Laboratory test finding (navigational concept) 8.9 g/dL 1 2.0-16.0 Below low normal [facility] (Osmel Alvarez MD) Laboratory test finding (navigational concept) 2.63 10^6/uL 4 .20-5.40 Below low normal [facility] (Osmel Alvarez MD) Laboratory test finding (navigational concept) 28.0 % 3 7.0-47.0 Below low normal [facility] (Osmel Alvarez MD) Laboratory test finding (navigational concept) 33.8 pg 27.0-34.0 [facility] (Osmel Alvarez MD) Laboratory test finding (navigational concept) 31.8 g/dL 31.0-36.0 [facility] (Osmel Alvarez MD) Laboratory test finding (navigational concept) 106.5 fL 8 1.0-101 Above high normal [facility] (Osmel Alvarez MD) Laboratory test finding (navigational concept) 14.6 % 1 1.5-14.5 Above high normal [facility] (Osmel Alvarez MD) Laboratory test finding (navigational concept) 109 10^3/uL 1 50-450 Below low normal [facility] (Osmel Alvarez MD) Laboratory test finding (navigational concept) 3.9 % 25.0-40 .0 Below low normal [facility] (Osmel Alvarez MD) Laboratory test finding (navigational concept) 9.8 fL 7.4-10.4 [facility] (Osmel Alvarez MD) Laboratory test finding (navigational concept) 86.2 % 3 7.0-80.0 Above high normal [facility] (Osmel Alvarez MD) Laboratory test finding (navigational concept) 3.0 % 0.0-7.0 [facility] (Osmel Alvarez MD) Laboratory test finding (navigational concept) 0.4 % 0.0-2.5 [facility] (Osmel Alvarez MD) Laboratory test finding (navigational concept) 6.0 % 3.0-8.0 [facility] (Osmel Alvarez MD) Laboratory test finding (navigational concept) 6.62 10^3/uL 2.00-6.90 [facility] (Osmel Alvarez MD) Laboratory test finding (navigational concept) 0.0 % 0.0-0.0 [facility] (Osmel Alvarez MD) Laboratory test finding (navigational concept) 0.5 % 0.0-0.0 Above high normal [facility] (Osmel Alvarez MD) Laboratory test finding (navigational concept) 0.30 10^3/uL 0 .60-3.40 Below low normal [facility] (Osmel Alvarez MD) Laboratory test finding (navigational concept) 0.46 10^3/uL 0.00-0.90 [facility] (Osmel Alvarez MD) Laboratory test finding (navigational concept) 0.03 10^3/uL 0.00-0.20 [facility] (Osmel Alvarez MD) Laboratory test finding (navigational concept) 0.04 10^3/uL 0.00-0.10 [facility] (Osmel Alvarez MD) Laboratory test finding (navigational concept) 0.23 10^3/uL 0.00-0.70 [facility] (Osmel Alvarez MD) Laboratory test finding (navigational concept) 0.00 10^3/uL 0.00-0.00 [facility] (Osmel Alvarez MD) Laboratory test finding (navigational concept) Laboratory test result [facility] (Osmel Alvarez MD) Laboratory test finding (navigational concept) 84 % 37-80 Above high normal [facility] (Osmel Alvarez MD) Laboratory test finding (navigational concept) 7 % 0-7 [facility] (Osmel Alvarez MD) Laboratory test finding (navigational concept) 3 % 3-8 [facility] (Osmel Alvarez MD) Laboratory test finding (navigational concept) 6 % 25-40 Below low normal [facility] (Osmel Alvarez MD) Laboratory test finding (navigational concept) Laboratory test result [facility] (Osmel Alvarez MD) Laboratory test finding (navigational concept) Laboratory test r esult Abnormal (applies to non-numeric results) [facility] (Osmel Alvarez MD ) { SICKLE CELL (NORMAL: NONE SEEN ) Laboratory test finding (navigational concept) Laboratory test r esult Abnormal (applies to non-numeric results) [facility] (Osmel Alvarez MD ) Laboratory test finding (navigational concept) Laboratory test r esult Abnormal (applies to non-numeric results) [facility] (Osmel Alvarez MD ) COMMENT: ID Date Data Source [id number] 08/02/2021 09:48:00 AM EDT [facility] Value Range Interpretation Code Description Data Maura rce(s) Supporting Document(s) Cobalamin (Vitamin B12) [Mass/volume] in Serum or Plasma 346 PG/ML 232 - 1245 [facility] ID Date Data Source [id number] 08/02/2021 09:34:00 AM EDT [facility] Value Range Interpretation Code Description Data Maura rce(s) Supporting Document(s) Iron [Mass/volume] in Serum or Plasma 25 UG/DL 42 - 135 L [facility] ID Date Data Source [id number] 08/02/2021 09:05:00 AM EDT [facility] Value Range Interpretation Code Description Data Maura rce(s) Supporting Document(s) BNP 2923 PG/ML 0 - 125 H [facility] willy ID Date Data Source [id number] 08/02/2021 09:05:00 AM EDT [facility] Name Value Range Interpretation Code Description Data Maura rce(s) Supporting Document(s) COMPREHENSIVE METABOLIC PANEL [facility] COMPREHENSIVE METABOLIC PANEL Sodium [Moles/volume] in Serum or Plasma 136 mEq/L 134 - 153 [facility] Potassium [Moles/volume] in Serum or Plasma 4.4 mEq/L 3.6 - 5.0 [facility] Chloride [Moles/volume] in Serum or Plasma 102 mEq/L 98 - 107 [facility] Carbon dioxide, total [Moles/volume] in Serum or Plasma 30 MEQ/L 22 - 30 [facility] Glucose [Mass/volume] in Serum or Plasma 104 MG/DL 70 - 99 H [facility] BUN 16 MG/DL 7 - 21 [facility] al Creatinine [Mass/volume] in Serum or Plasma 1.2 MG/DL 0.7 - 1.5 [facility] BUN/CREAT 13 8 - 27 [facility] al Protein [Mass/volume] in Serum or Plasma 5.4 G/DL 6.3 - 8.2 L [facility] Albumin [Mass/volume] in Serum or Plasma 3.3 G/DL 3.9 - 5.0 L [facility] Globulin [Mass/volume] in Serum by calculation 2.1 GM/DL 2.4 - 3.2 L [facility] A/G RATIO 1.6 0.8 - 2.0 [facility] Calcium [Mass/volume] in Serum or Plasma 8.5 MG/DL 8.4 - 10.2 [facility] Bilirubin.total [Mass/volume] in Serum or Plasma <0.7 MG/DL 0.2 - 1.3 [facility] Alkaline phosphatase [Enzymatic activity/volume] in Serum or Plasma 101 U/L 38 - 126 [facility] Aspartate aminotransferase [Enzymatic activity/volume] in Serum or Plasma 20 U/L 5 - 40 [facility] Alanine aminotransferase [Enzymatic activity/volume] in Seru m or Plasma 15 U/L 7 - 56 [facility] Anion gap 3 in Serum or Plasma 4.0 mmol/L 8.0 - 16.0 L [facility] 56 [facility]/min [facility] willy AFR AMER GFR 60 mL/min [facility] Male GFR In [...] >32 mL/min Normal ID Date Data Source [id number] 08/02/2021 08:02:00 AM EDT [facility] Name Value Range Interpretation Code Description Data Maura rce(s) Supporting Document(s) CBC W/AUTOMATED DIFF [facility] COMPLETE BLOOD COUNT Leukocytes [#/volume] in Blood by Automated count 7.7 10^3/uL 4.2 - 1 1.0 [facility] Erythrocytes [#/volume] in Blood by Automated count 2.63 10^6/uL 4. 20 - 5.40 L [facility] Hemoglobin [Mass/volume] in Blood 8.9 g/dL 12.0 - 16.0 L [facility] Hematocrit [Volume Fraction] of Blood by Automated count 28.0 % 3 7.0 - 47.0 L [facility] Erythrocyte mean corpuscular volume [Entitic volume] b y Automated count 106.5 fL 81.0 - 101 H [facility] Erythrocyte mean corpuscular hemoglobin [Entitic mass] by Automated count 33.8 pg 27.0 - 34.0 [facility] Erythrocyte mean corpuscular hemoglobin concentration [Mass/volume] by Automated count 31.8 g/dL 31.0 - 36.0 [facility] Erythrocyte distribution width [Ratio] by Automated count 14.6 % 11.5 - 14.5 H [facility] Platelets [#/volume] in Blood by Automated count 109 10^3/uL 150 - 45 0 L [facility] Platelet mean volume [Entitic volume] in Blood by Automated count 9.8 fL 7.4 - 10.4 [facility] Neutrophils/100 leukocytes in Blood by Automated count 86.2 % 37. 0 - 80.0 H [facility] Lymphocytes/100 leukocytes in Blood by Manual count 3.9 % 25.0 - 40.0 L [facility] Monocytes/100 leukocytes in Blood by Automated count 6.0 % 3.0 - 8.0 [facility] Eosinophils/100 leukocytes in Blood by Automated count 3.0 % 0.0 - 7.0 [facility] Basophils/100 leukocytes in Blood by Automated count 0.4 % 0.0 - 2.5 [facility] %IG 0.5 % 0.0 - 0.0 H [facility] %NRBC 0.0 % 0.0 - 0.0 [facility] al Neutrophils [#/volume] in Blood by Automated count 6.62 10^3/uL 2.00 - 6.90 [facility] Lymphocytes [#/volume] in Blood by Automated count 0.30 10^3/uL 0.60 - 3.40 L [facility] Monocytes [#/volume] in Blood by Automated count 0.46 10^3/uL 0.00 - 0.90 [facility] Eosinophils [#/volume] in Blood by Automated count 0.23 10^3/uL 0.00 - 0.70 [facility] Basophils [#/volume] in Blood by Automated count 0.03 10^3/uL 0.00 - 0.20 [facility] #IG 0.04 10^3/uL 0.00 - 0.10 [facility] #NRBC 0.00 10^3/uL 0.00 - 0.00 [facility] MANUAL DIFF SEE BELOW [facility] ital Segmented neutrophils/100 leukocytes in Blood by Manual count 84 % 37 - 80 H [facility] %LYMPH 6 % 25 - 40 L [facility] al %MONO 3 % 3 - 8 [facility] al %EOS 7 % 0 - 7 [facility] al RBC MORPH SEE BELOW [facility] al Anisocytosis [Presence] in Blood by Light microscopy 2+ SHAUNA L: NONE SEEN A [facility] HYPO 1+ NORMAL: NONE SEEN A [place] [facility] Hospital { SICKLE CELL (NORMAL: NONE SEEN ) Platelet adequacy [Presence] in Blood by Light microscopy DE CREASED NORMAL: NORMAL A [facility] COMMENT: ID Date Data Source [id number] 08/02/2021 07:58:00 AM EDT [facility] Name Value Range Interpretation Code Description Data Maura rce(s) Supporting Document(s) Magnesium [Mass/volume] in Serum or Plasma 1.7 MG/DL 1.7 - 2.2 [facility] ID Date Data Source [id number] 08/02/2021 07:28:00 AM EDT [facility] Value Range Interpretation Code Description Data Maura rce(s) Supporting Document(s) Lactate [Moles/volume] in Serum or Plasma 0.7 MMOL/L 0.2 - 2.2 [facility] ID Date Data Source [id number] 08/02/2021 07:03:00 AM EDT [facility] Name Value Range Interpretation Code Description Data Maura rce(s) Supporting Document(s) Fibrin D-dimer FEU [Mass/volume] in Platelet poor plasma 3.59 ug /mL 0.27 - 0.50 H [facility] ID Date Data Source [id number] 08/01/2021 06:43:00 AM EDT [facility] 1 OrderSheet [facility] Emergency Department [address] [place] [address] Phone #: ext- [phone] 08/01/2021 06:43 [id number] Sex[facility] F : 1965 Age: 56yWEIGHT:74.8 kg (S) HEIGHT:60 inches (S) BMI:32.2ALLERGIES: Penicillins, SeafoodCHIEF COMPLAINT: chest discomfort, palpitationsDIAGNOSIS: Atrial fibrillation, Pulmonary embolismLAB ORDERSOrder Description Priority Entered Acknowledged InitialedCBC w Diff STAT 07:52 08/01/2021 07:56 Maria T Garcia RN, M.D.;CMP STAT 07:52 08/01/2021 07:56 Maria T Garcia RN, M.D.;Troponin-T STAT 07:52 08/01/2021 07:56 Maria T Garcia RN, M.D.;BNP STAT 07:52 08/01/2021 07:56 Maria T Garcia RN, M.D.;TSH STAT 07:52 08/01/2021 07:56 Maria T Garcia RN, M.D.;Lipase STAT 07:52 08/01/2021 07:56 Maria T Garcia RN, M.D.;DIAGNOSTIC STUDY ORDERSOrder Description Priority Entered Acknowledged [facility] 1 STAT 07:52 08/01/2021 Ack'd: 08:00 08:06 Tyrell (Oxygen? Maria T Galloway Amber Hagenston RN(Yes)) Leida; R.N. Reason for Study: Chest PainCT CTA CHEST STAT 08:52 08/01/2021 09:14 Chata(NONCOR) Maria T Jones RNINC DWAINE Casarez;(Oxygen?(No))(IV?(Yes)) 2 OrderSheet [facility] Emergency Department [address] [place] [address] Phone #: ext- [phone] 08/01/2021 06:43 Patient: CHANTALE SOLOMON Sex: F : 1965 Age: 56y Reason for Study: chest pain, a. fib. hx of PEMEDICATION/IV/DRIP/FLUID ORDERSOrder Description Priority Entered Acknowledged InitialedAspirin PO 07:52 08/01/2021 07:59 DorisChewable 81 mg Maria T Galloway RN162 mg (NOW) Leida;diltiaZEM Drip IV : 5 10:13 08/01/2021 10:21 Wilt Jordynmg/hr (Add 125 mg Chata Barrera R.N.(25 mL) to 100 mL RN; Written orderNS to get 125 per ( Dr Mahajan/125 mL (1 admissionmg/mL)) orderOrders per Material Handler Loader: ); Maria T Galloway M.D.GENERAL ORDERSOrder Description Priority Entered Acknowledged InitialedBlood Pressure 07:52 08/01/2021 07:55 DorisMonitor Maria T Galloway RN, M.D.;Boat Joiner 07:52 08/01/2021 07:55 Chata(continuous) Maria T Galloway RN, M.D.;EKG 07:52 08/01/2021 07:55 Maria T Garcia RN, M.D.;NPO 07:52 08/01/2021 07:55 Maria T Garcia RN, M.D.;Obtain Old EKG 07:52 08/01/2021 07:55 Maria T Garcia RN, M.D.;Obtain Old Records 07:52 08/01/2021 07:55 Maria T Garcia RN, M.D.;Oxygen titrate to 07:52 08/01/2021 07:55 Doris92% Maria T Galloway RN, M.D.;Pulse oximeter 07:52 08/01/2021 07:56 Chata(Continuous) Maria T Galloway RN, M.D.; 3 OrderSheet [facility] Emergency Department [address] [place] [address] Phone #: ext- [phone] 08/01/2021 06:43 Patient: CHANTALE SOLOMON Sex: F : 1965 Age: 56ySaline Lock 07:52 08/01/2021 07:56 Maria T Garcia RN, M.D.;Vitals 07:52 08/01/2021 07:56 Maria T Garcia RN, M.D.;Oxygen (2 L/min) 07:52 08/01/2021 07:56 Chata(NC) (Titrate to O2 Maria T Galloway RNSat >92%) Leida;Consult - 09:03 08/01/2021 09:14 DorisCardiologist Maria T Galloway RN, M.D.;[Electronically signed by Niru Whitlock R.N. (11:08/01/2021)][Electronically signed by Maria T Galloway M.D. (12:21 08/01/2021)][Electronically locked by Niru Whitlock R.N. (11:08/01/2021)] Name Value Range Interpretation Code Description Data Maura rce(s) Supporting Document(s) ID Date Data Source [id number] 08/01/2021 06:43:00 AM EDT [facility] 1 Medication Reconciliation Report [facility] Emergency Department [address] [place] [address] Phone #: ext- [phone] 08/01/2021 06:43 Patient: CHANTALE SOLOMON Sex: F : 1965 Age: 56yWeight: 74.8 kgHeight/Length: 60 in.BMI: 32.2ALLERGIES: Penicillins, SeafoodThe patient's Home Medications are listed below:THE FOLLOWING MEDICATIONS NEED TO BE RECONCILED: Breo Ellipta Inhalation 1 puff, daily dilTIAZem HCl Oral 180 mg, daily, at bedtime Folic Acid Oral (800 mcg) 1 tablet, daily Furosemide Oral 20 mg, daily, 5 days a week Iron Oral 45 mg, daily Magnesium Oral 500 mg, daily Metoprolol Succinate ER Oral 12.5 mg, daily Motec 400 mg 2 x day Multaq Oral (400 mg), 2x a day Pantoprazole Sodium Oral 40 mg, daily, prn Potassium Oral 10 meq, 2x a day Spiriva HandiHaler Inhalation 2 puffs, daily Tylenol Extra Strength Oral (500 mg) 2 tablets, prn Xarelto Oral (10 mg) 1 tablet, dailyThe source(s) of the original Home Medication information: 2 Medication Reconciliation Report [facility] Emergency Department [address] [place] [address] Phone #: ext- [phone] 08/01/2021 06:43 Patient: CHANTALE SOLOMON Sex: F : 1965 Age: 56yNot obtained.The following Medications were given to the patient in the Emergency Department:ASPIRIN CHEWABLE 81 MG [PO] PO 162 mg, administered: 07:59 1Diltiazem [IV Drip] Drip IV bolus 0, then 125 mg 5 mg/hr, administered: 10:00 08/01/2021The following Medications were prescribed to the patient:None. Name Value Range Interpretation Code Description Data Maura rce(s) Supporting Document(s) ID Date Data Source [id number] 08/01/2021 06:43:00 AM EDT [facility] 1 Medication Administration Record [facility] Emergency Department [address] [place] [address] Phone #: ext- [phone] 08/01/2021 06:43 Patient: CHANTALE SOLOMON Sex: F : 1965 Age: 56yWeight: 74.8 kgHeight/Length: 60 inBMI: 32.2ALLERGIES: Penicillins, Seafood Date/Time Medication Administered Medication OrderedGiven ASPIRIN CHEWABLE 81 MG [PO] Aspirin PO Chewable 81 mg 11941:59 08/01/2021 Dose: 162 mg Tablets PO mg (NOW)CHENTE Salesta DILTIAZEM [IV DRIP] diltiaZEM Drip IV : 5 mg/hr (Add10:00 08/01/2021 Dose: 125 mg Drip IV 125 mg (25 mL) to 100 mL NS Niru Brandon R.N. Rate: 5 mg/hr get 125 mg/125 mL (1 mg/mL))---- Dispensed: 125 mL bagContinued Upon A dmission Site: #1 left :10 08/01/2021Niru Whitlock RMikel Name Value Range Interpretation Code Description Data Maura rce(s) Supporting Document(s) ID Date Data Source [id number] 08/01/2021 06:43:00 AM EDT [facility] 1 General Instructions [facility] Emergency Department [address] [place] [address] Phone #: ext- [phone] 08/01/2021 06:43 Patient: CHANTALE SOLOMON Sex: F : 1965 Age: 56yChronic, paroxysmal atrial fibrillation with controlled rate.Previous pulmonary embolism. No acute cor pulmonale.(Electronically signed by Maria T Galloway M.D. 08/01/2021 12:21) Name Value Range Interpretation Code Description Data Maura rce(s) Supporting Document(s) ID Date Data Source [id number] 08/01/2021 06:43:00 AM EDT [facility] 1 Clinical Report - Nurses [facility] Emergency Department [address] [place] [address] Phone #: [phone]- [phone] 08/01/2021 06:43 Patient: CHANTALE SOLOMON Sex: F : 1965 Age: 56yTRIAGEArrived by private vehicle. Historian: patient. ( PER PT HERE FOR A -FIB PT C/O PAIN RIGHTBREAST AREA).Acuity: LEVEL 3.Chief Complaint: CHEST PAIN.This started just prior to arrival. She has had difficulty breathing. 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 --06:51 08/01/21 Naima Jade R.N.06:47 08/01/21. BP: 113/62. MAP: 79. HR: 122. RR: 16. O2 saturation: 99% on room air. Temp: 97.3 F.Pain level now: 04/12. --06:51 08/01/21 Naima Jade R.N.Weight: 74.8 kg stated. Height/Length: 60 inches Per Patient. BMI: 32.2. --06:51 08/01/21 Naima Jade R.N.MedicationsBreo Ellipta Inhalation 1 puff, daily. dilTIAZem HCl Oral 180 mg, daily at bedtime. Folic Acid Oral (Tablet 800 mcg) 1 tablet, daily. Furosemide Oral 20 mg, daily (5 days a week). Iron Oral 45 mg, daily. Magnesium Oral 500 mg, daily. Metoprolol Succinate ER Oral 12.5 mg, daily. Motec 400 mg 2 x day. Multaq Oral (Tablet 400 mg), 2x a day. Pantoprazole Sodium Oral 40 mg, daily as needed. Potassium Oral 10 meq, 2x a day. Spiriva HandiHaler Inhalation 2 puffs, daily. Tylenol Extra Strength Oral (Tablet 500 mg) 2 tablets, as needed. Xarelto Oral (Tablet 10 mg) 1 tablet, daily. --06:48 08/01/21 Naima Jade R.N.AllergiesPenicillins.Seafood. --06:48 08/01/21 Naima Jade R.N.PROBLEMS: 2 Clinical Report - Nurses [facility] Emergency Department [address] [place] [address] Phone #: ext- [phone] 08/01/2021 06:43 Patient: CHANTALE SOLOMON Sex: F : 1965 Age: 56yCancer: Active. (Lung, mets to bones). --06:49 08/01/21 Naima Jade R.N.Congestive Heart Failure.Hypertension.Hemoptysis.Heart Disease.Atrial Fibrillation.Arrhythmia.Hypomagnesemia.Lung Cancer.Lung Disease.Metabolic disease: (Bone). --06:49 08/01/21 Naima Jade R.N.ADDITIONAL S URGERIES:Appendectomy.Back Surgery (Rods in t spine, crushed t7 t8).Dilatation Curettage.Foot surgery.Heel spur.Septoplasty.Septoplasty.Tonsillectomy.Tubal Ligation. --06:49 08/01/21 Naima Jade R.N.HistorySOCIAL HX: Never smoker. No alcohol use or drug use. She was offered HIV testing but declined andhepatitis C testing but declined. She has not traveled outside the [place]Infectious disease exposure: No infectious disease exposure.SELF HARM ASSESSMENT: Self harm assessment was performed. The patient answered "no" to thequestion(s) "Have you recently felt down, depressed, or hopeless?" and "Do you have thoughts of harmingor killing yourself?".ABUSE ASSESSMENT: No report of abuse.NUTRITIONAL RISK ASSESSMENT: The nutritional risk assessment revealed no deficiencies.FUNCTIONAL ASSESSMENT: Functional assessment: no impairments noted.LEARNING NEEDS ASSESSMENT: The learning needs assessment revealed no barriers.SKIN INTEGRITY ASSESSMENT: Skin integrity risk assessment completed. No skin integrity riskidentified. --06:51 08/01/21 Naima Jade R.N.11:10 08/01/21. 3 Clinical Report - Nurses [facility] Emergency Department [address] [place] [address] Phone #: ext- [phone] 08/01/2021 06:43 Patient: CHANTALE SOLOMON Sex: F : 1965 Age: 56y FALL RISK ASSESSMENT: Fall risk assessment completed. Risk factors identified include weakness and patient medications. Fall interventions initiat ed. Patient placed on stretcher. Side rails up x2. Bed in low position. Brakes on. Patient visible from nurses' station. Call light in reach of patient. --11:25 08/01/21 Wilt, Niru, R.N. Interventions Identification band on patient. --06:51 08/01/21 Naima Jade R.N.PHYSICAL ASSESSMENTGENERAL / NEURO / PSYCH: Alert. Oriented X 4. Appears in no acute distress.HEENT: Mucous membranes are pink.RESPIRATORY: Respirations not labored. Breath sounds within normal limits.CVS: Cardiac rhythm: atrial fibrillation.GI / : Abdomen soft and nontender.EXTREMITIES: No lower extremity edema.SKIN: Skin is warm and dry. Normal skin turgor. Skin is non-tender. --06:51 08/01/21 Naima Jade R.N.NURSING PROGRESS NOTESThe plan of care for this patient has been created. radiation physicist placed on patient. Patient gowned.Head of bed elevated. Reassurance given. Two patient identifiers checked. Call light placed in reach.Side rails up x 1. Bed placed in lowest position. Patient ready for evaluation- ED physician notified.--06:51 08/01/21 Naima Jade R.N. 07:51 08/01/2021 Site #1 started via IV in the left forearm with an 20g angiocath, with aseptic technique and good blood return; one attempt. Saline lock flushed with 10 mL saline. --07:56 08/01/21 Chata Barrera RN 07:59 08/01/2021 ASPIRIN CHEWABLE 81 MG PO Tablets 162 mg given. Allergies verified and confirmed 5 rights. Information reviewed with patient including reason for taking this medication, signs of allergic reaction and precautions. Verbalizes understanding. --07:59 08/01/21 Chata Barrera RN EKG time: (07:51 08/01/2021). EKG was performed by a nurse and shown to the ED physician. --08:00 08/01/21 Leilani Costello R.N. 08:00 08/01/21. BP: 112/59. MAP: 76. HR: 107. RR: 20. O2 saturation: 93%. Pain level now: 0/10. --09:15 08/01/21 Chata Barrera RN 08:15 08/01/21. BP: 107/72. MAP: 83. HR: 102. RR: 20. O2 saturation: 100%. Pain level now: 0/10. --09:16 08/01/21 Chata Barrera RN 08:30 08/01/21. BP: 100/85. MAP: 90. HR: 103. RR: 18. O2 saturation: 100%. Pain level now: 0/10. --09:17 08/01/21 Chata Barrera RN 4 Clinical Report - Nurses [facility] Emergency Department [address] [place] [address] Phone #: ext- [phone] 08/01/2021 06:43 Patient: CHANTALE SOLOMON Sex: F : 1965 Age: 56y 08:45 08/01/21. BP: 114/77. MAP: 89. HR: 88. RR: 20. O2 saturation: 100%. Pain level now: 0/10. --09:17 08/01/21 Chata Barrera RN 09:00 08/01/21. Patient waiting for admit bed. ( Admission orders written by Dr Alvarez, awaiting bed assignment). --09:19 08/01/21 Chata Barrera RN 09:00 08/01/21. BP: 101/58. MAP: 72. HR: 100. RR: 20. O2 saturation: 100%. --09:31 08/01/21 [facility] TechFlorian, ER Tech1 09:15 08/01/21. BP: 99/66. MAP: 77. HR: 101. RR: 16. O2 saturation: 100%. --09:32 08/01/21 [facility] Florian Del Rosario ER Tech1 09:34 08/01/21. Patient transported to [place] by wheelchair with mask and radiology director. --09:34 08/01/21 Chata Barrera RN 10:08 08/01/21. BP: 104/64. MAP: 77. HR: 111. RR: 19. O2 saturation: 100% on nasal cannula at 2 liters/minute. --10:08/01/21 Niru Whitlock R.N. 10:00 08/01/2021 Started 125 mg of Diltiazem Drip IV in bag #1 125 mL; at 5 mg/hr via site #1. via IV pump. Allergies verified and confirmed 5 rights. IV patency established. IV site checked: no pain, redness, or swelling. IV flushed thoroughly pre- and post-medication administration. Information reviewed with patient including reason for taking this medication. Verbalizes understanding. --10:08/01/21 Niru Whitlock R.N. 10:08/01/21. ( Patient assisted to bedside commode. Pt denies needs at this time.). --10:08/01/21 Niru Whitlock R.N. 10:08/01/21. Care transferred and report received (Chata FLORES). --10:08/01/21 Niru Whitlock R.N. 11:08/01/2021 Diltiazem Drip IV via IV site #1 Continued: upon admission at the rate of 5 mg/hr. 120 mL remaining. --11:25 08/01/21 Niru Whitlock R.N.DISPOSITION / DISCHARGE 09:08/01/21. Admitted to the Acute Inpatient Unit, Monitored. Bed obtained but not ready ([address]). --09:08/01/21 Chata Barrera RN 11:10 08/01/2021 Site #[address] upon admission; patent (Cardizem drip infusing @ 5mg/hr). --11:24 08/01/21 Niru Whitlock R.N. 11:08/01/21. Departure time: 11:08/01/2021. Sullivan Coma Scale: 15- eyes open- spontaneous (4); best verbal response- oriented (5); best motor response- obeys commands (6). Condition at departure: stable. Disposition: observation in the Acute Inpatient Unit, Monitored for further evaluation and cardiac 5 Clinical Report - Nurses [facility] Emergency Department [address] [place] [address] Phone #: ext- [phone] 08/01/2021 06:43 [id number] Sex: [facility] 1965 Age: 56y monitoring. Transported via stretcher by tech and nurse with monitor, IV, O2 and mask. Report was given to a nurse in person, at bedside and via visit overview. Report included information regarding patient's care, treatment, allergies and condition, current and abnormal vital signs and abnormal labs. Report included treatment information regarding medications given or pending and home medications; type and amount of IV fluids. All questions were answered. Report was acknowledged and care was transferred. (MARK Gamboa). Patient's personal items include: shirt and cell phone, oxygen concentrator; items were placed in belongings bag. --11:24 08/01/21 Niru Whitlock R.N. 11:22 08/01/21. BP: 97/71. MAP: 79. HR: 94. RR: 17. O2 saturation: 100% on nasal cannula at 2 liters/minute. Temp: 98.7 F. Pain level now: 01/10. --11:24 08/01/21 Niru Whitlock R.N.Locked/Released at 08/01/2021 11:25 by Niru Whitlock R.N. Name Value Range Interpretation Code Description Data Maura rce(s) Supporting Document(s) ID Date Data Source [id number] 08/01/2021 06:43:00 AM EDT [facility] 1 Clinical Report - Physicians/Mid Levels [facility] Emergency Department [address] [place] [address] Phone #: ext- [phone] 08/01/2021 06:43 Patient: CHANTALE SOLOMON Sex: F : 1965 Age: 56y Time Seen: 07:39 08/01/2021; initial patient contact. Arrived- By private vehicle. Historian- patient. Disposition decision: 09:03 08/01/2021.HISTORY OF PRESENT ILLNESS Chief Complaint: PALPITATIONS and CHEST DISCOMFORT. It is described as a fast heart beat. This started just prior to arrival today and is still present. Onset during rest. Modifying factors. Not worsened by anything. Not relieved by anything. The patient has had chest soreness (under rt and lt breasts). No difficulty breathing, sweating episodes, fainting episodes, dizziness or tingling. No muscle spasms. ( pt did not take her lopressor this am because her BP was low). Similar symptoms previously. Patient has had similar symptoms many times, chronically. 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 Recent medical care: The patient was seen recently at this facility. ( 07/31/21, ER records reviewed).REVIEW OF SYSTEMSNo fever, chills, cough, orthopnea or calf pain. No enlarged lymph nodes, headache, sore throat, blurredvision or nausea. No abdominal pain, black stools, difficulty with urination, skin rash or depression. Notrouble sleeping, vomiting, diarrhea or bloody stools. The patient has not had a poor appetite. All othersystems reviewed and are negative.PAST HISTORYSee nurses notes. Problems: DVT - Deep Venous Thrombosis. TIA - Transient Ischemic Attack. Pulmonary Embolism. Chronic Back Pain. Anemia. COPD - Chronic Obstructive Pulmonary Disease. Congestive Heart Failure. Hypertension. Heart Disease. Atrial Fibrillation. Arrhythmia. Hypomagnesemia. Lung Cancer. 2 Clinical Report - Physicians/Mid Levels [facility] Emergency Department [address] [place] [address] Phone #: ext- [phone] 08/01/2021 06:43 Patient: CHANTALE SOLOMON [facility]#: [id number] Sex: F : 1965 Age: 56y Additional Surgeries: Appendectomy. Back Surgery. (Rods in t spine, crushed t7 t8) Dilatation Curettage. Foot surgery. Heel spur. Septoplasty. Septoplasty. Tonsillectomy. Tubal Ligation. Medications: Breo Ellipta Inhalation 1 puff, daily. dilTIAZem HCl Oral 180 mg, daily at bedtime. Folic Acid Oral (Tablet 800 mcg) 1 tablet, daily. Furosemide Oral 20 mg, daily (5 days a week). Iron Oral 45 mg, daily. Magnesium Oral 500 mg, daily. Metoprolol Succinate ER Oral 12.5 mg, daily. Motec 400 mg 2 x day. Multaq Oral (Tablet 400 mg), 2x a day. Pantoprazole Sodium Oral 40 mg, daily as needed. Potassium Oral 10 meq, 2x a day. Spiriva HandiHaler Inhalation 2 puffs, daily. Tylenol Extra Strength Oral (Tablet 500 mg) 2 tablets, as needed. Xarelto Oral (Tablet 10 mg) 1 tablet, daily. Aller gies: Penicillins. Seafood.SOCIAL HISTORYFormer smoker. No alcohol use or drug use.ADDITIONAL NOTESThe nursing notes have been reviewed with agreement regarding the chief complaint, HPI, ROS, PMH andpatient medications and allergies.PHYSICAL EXAMVital Signs: 08/01/2021 06:47 BP: 113/62. MAP: 79. HR: 122. RR: 16. O2 saturation: 99% on room air.Temp: 97.3 F. Pain level now: 04/12. Have been reviewed. Oxygen saturation normal.Appearance: Alert. Oriented X3. No acute distress.Eyes: Pupils equal, round and reactive to light. Eyes normal inspection.ENT: Nose normal. Pharynx normal.Neck: Normal inspection. Neck supple. 3 Clinical Report - Physicians/Mid Levels [facility] Emergency Department [address] [place] [address] Phone #: ext- [phone] 08/01/2021 06:43 [id number] Sex[facility] F : 1965 Age: 56y CVS: Abnormal rhythm, which is irregular. Normal heart rhythm. 3/6 systolic murmur. Pulses normal. Respiratory: No respiratory distress. Mildly decreased air movement in the left lung base posteriorly and mid-lung posteriorly. Painless inspiration. Chest nontender. Abdomen: Soft and nontender. Bowel sounds normal. No organomegaly. No mass. Femoral pulses equal. Back: Normal external inspection. Skin: Skin warm and dry. Normal skin color. No rash. Normal skin turgor. Extremities: Extremities exhibit normal ROM. No lower extremity edema. Neuro: Oriented X 3. No motor deficit. No sensory deficit.LABS, X-RAYS, AND EKGEKG: No acute process. No acute ischemia. Atrial fibrillation (101/min). Normal ST and T waves.NAD. EKG unchanged when compared with prior EKG. (07/31/21). The study has been interpretedcontemporaneously by me. The EKG appears to be a good tracing. Interpretation time: 08:.Chest X-ray: No acute disease. (unchanged complete opacity left lung, see report). Views: AP(portable). Technique: good. The X-rays were interpreted by the radiologist. Interpretation time: 08:.CTA Pulmonary Arteries: Small right and left pleural effusion present. see report; old PE's still present,no new PE's; chronic left lung changes. The CTA was performed with contrast. The study wasinterpreted by the radiologist. Interpretation time: 10:36 08/01/2021.Laboratory Tests: Laboratory tests have been ordered, with results reviewed and considered in themedical decision making process. CBC w Diff: (SARAH: 08/01/2021 08:01) ( MsgRcvd 08/01/2021 08:55) Final results Test Result Flag Units (Reference) CBC W/AUTOMATED DIFF COMPLETE BLOOD COUNT WBC 10.8 10/uL (4.2 - 11.0) RBC 2.69 L 10/uL (4.20 - 5.40) HEMOGLOBIN 9.3 L g/dL (12.0 - 16.0) HEMATOCRIT 28.7 L % (37.0 - 47.0) MCV 106.7 H fL (81.0 - 1 01) MCH 34.6 H pg (27.0 - 34.0) MCHC 32.4 g/dL (31.0 - 36.0) RDW 14.6 H % (11.5 - 14.5) PLATELETS 135 L 10/uL (150 - 450) MPV 9.6 fL (7.4 - 10.4) NEUT 91.4 H % (37.0 - 80.0) LYMPH 2.9 L % (25.0 - 40.0) MONO 2.2 L % (3.0 - 8.0) EOS 2.5 % (0.0 - 7.0) BASO 0.4 % (0.0 - 2.5) %IG 0.6 H % (0.0 - 0.0) %NRBC 0.0 % (0.0 - 0.0) #NEUT 9.90 H 10/uL (2.00 - 6.90) #LYMPH 0.31 L 10/uL (0.60 - 3.40) #MONO 0.24 10/uL (0.00 - 0.90) #EOS 0.27 10/uL (0.00 - 0.70) #BASO 0.04 10/uL (0.00 - 0.20) #IG 0.06 10/uL (0.00 - 0.10) #NRBC 0.00 10/uL (0.00 - 0.00) 4 Clinical Report - Physicians/Mid Levels [facility] Emergency Department [address] [place] [address] Phone #: ext- [phone] 08/01/2021 06:43 Patient: CHANTALE SOLOMON Sex: F : 1965 Age: 56y MANUAL DIFF SEE BELOW SEGS 97 H % (37 - 80) %LYMPH 2 L % (25 - 40) %MONO 1 L % (3 - 8) RBC MORPH SEE BELOW ANISO 1+ A (NORMAL: NONE MACRO 1+ A (NORMAL: NONE HYPO 1+ A (NORMAL: NONE { SICKLE CELL (NORMAL: NONE SEEN ) PLT EST NORMAL (NORMAL: SHAUNA COMMENT: CMP: (SARAH: 08/01/2021 08:01) ( MsgRcvd 08/01/2021 08:33) Final results Test Result Flag Units (Reference) COMPREHENSIVE METABOLIC PANEL COMPREHENSIVE METABOLIC PANEL SODIUM 138 mEq/L (134 - 153) POTASSIUM 4.6 mEq/L (3.6 - 5.0) CHLORIDE 103 mEq/L (98 - 107) CO2 27 MEQ/L (22 - 30) GLUCOSE 110 H MG/DL (70 - 99) BUN 16 MG/DL (7 - 21) CREATININE 1.1 MG/DL (0.7 - 1.5) BUN/CREAT 15 (8 - 27) TOTAL PROTEIN 6.0 L G/DL (6.3 - 8.2) ALBUMIN 3.4 L G/DL (3.9 - 5.0) GLOBULIN 2.6 GM/DL (2.4 - 3.2) A/G RATIO 1.3 (0.8 - 2.0) CALCIUM 8.8 MG/DL (8.4 - 10.2) TOTAL BILI <0.7 MG/DL (0.2 - 1.3) ALKALINE PHOS 92 U/L (38 - 126) SGOT/AST 18 U/L (5 - 40) SGPT/ALT 13 U/L (7 - 56) ANION GAP 8.0 mmol/L (8.0 - 16.0) AGE 56 yrs NON-AA GFR 55 mL/min AFR AMER GFR >60 mL/min Male GFR Interprentation 20-49 yrs >60 mL/min Abzuhd19-40 yrs >56 mL/min Normal 60-69 yrs >49 mL/min Normal 70-79yrs>42 mL/min Normal 80 and above >35 mL/min Normal Female GFRInterpretation 20-39 yrs >60 mL/min Normal 40-49 yrs >58 mL/minNormal 50-59 yrs >51 mL/min Normal 60-69 yrs >45 mL/min Dkconm56-00 yrs >39 mL/min Normal 80 and above >32 mL/min NormalTroponin-T: (SARAH: 08/01/2021 08:01) ( MsgRcvd 08/01/2021 08:50) Final results Test Result Flag Units (Reference) TROPONIN T 0.02 NG/ML (0.00 - 0.10) TROPONIN T0.1 ng/ml Recommended as the clinical threshold value forTroponin T.BNP: (SARAH: 08/01/2021 08:01) ( MsgRcvd 08/01/2021 08:50) Final results Test Result Flag Units (Reference) BNP 2271 H PG/ML (0 - 125) 5 Clinical Report - Physicians/Mid Levels [facility] Emergency Department [address] [place] [address] Phone #: ext- [phone] 08/01/2021 06:43 Patient: CHANTALE SOLOMON Sex: F : 1965 Age: 56yTSH: (SARAH: 08/01/2021 08:01) ( MsgRcvd 08/01/2021 08:45) Final results Test Result Flag Units (Reference) TSH 1.25 uIU/mL (0.47 - 5.01)Lipase: (SARAH: 08/01/2021 08:01) ( [facility] 08/01/2021 08:32) Final results Test Result Flag Units (Reference) LIPASE 18 U/L (13 - 60)Chest Portable 1 View: (SARAH: 08/01/2021 07:52) ( [facility] 08/01/2021 08:43) In Progress [place] [address] PHONE: [phone] FAX: [phone] Name .................. : JUANITO Daniels Acct Number.................. : [id number] ROOM. ................. : [facility] Number ................... : [id number] Stay type ............. : E/R Discharge Date......... ... : Admit Date ......... : 08/01/21 Admit Phys .................... : LAVERNE STUBBS Date of ....... : 1965 Family Phys ................... : SEQUEIRA Phone .................. : [phone] Age ................................ : 56 Film# .................. .:[id number] Sex ................................. : F Unsigned transcriptions are preliminary reports and do not represent a medical or legal document CHEST PORTABLE [id number] COMPLETE:08/01/21 07:52 [id number] Reason(s): Chest Pain PORTABLE CHEST SINGLE VIEW 8:10 AM HISTORY: Chest pain COMPARISON: 07/31/2021 FINDINGS: Mediastinum is shifted to the left. There is complete opacification of the left hemithorax. This is unchanged. The right lung is clear. Mild blunting of the right costophrenic angle unchanged. Right internal jugular central venous catheter is present which is unchanged. Paraspinal rods in the thoracic spine unchanged. IMPRESSION: Complete opacification of the left hemithorax which is likely a combination of pleural fluid and collapsed left lung. Small right effusion. These findings are unchanged. Electronically Reviewed and Signed By DCTRENEE SIGNDATELOUIS Transcribe Initials: NARESH, Transcribe Date: 08/01/21 08:43, Dictation Date: 6 Clinical Report - Physicians/Mid Levels [facility] Emergency Department [address] [place] [address] Phone #: ext- [phone] 08/01/2021 06:43 Patient: CHANTALE SOLOMON Sex: F : 1965 Age: 56y <<REPDIST>> Page 1 of 1.PROGRESS AND PROCEDURESCourse of Care: 09:01 08/01/21. workup and CXR results all in and reviewed; pt has stable A. Fib.; came to see pt in ER and will admit; he wants a CTA chest to r/o PE; pt agrees to admission, feelingbetter;BP improved, rate stable 10:19 08/01/21. still waiting for CTA chest results, pt doing great, BP and rate acceptable, Dr. Alvarez ordered Card izem drip at 5 mg/hr 10:40 08/01/21. CTA chest results reviewed and no new PE's, old PE's still present; Dr. Alvarez aware. Critical care performed (60 minutes). Time is exclusive of separately billable procedures. Time includes: direct patient care, patient reassessment, coordination of patient care, interpretation of data (laboratory data, chest xrays and prior electrocardiograms), medical consultation and documentation of patient care- see progress notes. Patient counseled in person regarding the patient's stable condition, test results, diagnosis and need for admission. Patient agrees with plan of care. Disposition: Condition: good and stable. Admit decision based on need for further evaluation, additional testing, monitoring, telemetry, observation, IV therapy, hydration and medications and stabilization of condition.CLINICAL IMPRESSION Chronic, paroxysmal atrial fibrillation with controlled rate. Previous pulmonary embolism. No acute cor pulmonale.(Electronically signed by Maria T Galloway M.D. 08/01/2021 12:21) 7Clinical Report - Physicians/Mid Levels [facility] Emergency Department [address] [place] [address] Phone #: ext- [phone] 08/01/2021 06:43 Patient: CHANTALE SOLOMON Sex: F : 1965 Age: 56y Name Value Range Interpretation Code Description Data Maura rce(s) Supporting Document(s) ID Date Data Source [id number] 08/01/2021 12:09:00 PM EDT [facility] [address] [place] [address] PHONE: [phone] FAX: [phone] Name .................. : JUANITO Daniels Acct Number.................. : [id number] ROOM. ................. : CCU2 MR Number ................... : [id number] Stay type ............. : O/P Discharge Date......... ... : Admit Date ......... : 07/05 07/24 Admit Phys .................... : KIM VANESSA Date of ....... : 1965 Family Phys ................... : SEQUEIRA Phone .................. : [phone] Age ................................ : 56 Film# .................. .:[id number] Sex ................................. : F Unsigned transcriptions are preliminary reports and do not represent a medical or legal document CT CTA CHEST NON-CORONARY Laura Stoddard 82878 COMPLETE:08/01/21 09:59 FILOMENA [id number] Reason(s): chest pain, a. fib. hx of PE CT CHEST WITH IV CONTRAST INDICATION: Chest pain, atrial fibrillation, history of pulmonary embolism COMPARISON: 05/02/2021 CT, chest x-ray 08/01/2021 CONTRAST: 75 cc Isovue-370 One or more of the following dose reduction techniques were utilized in effectively lowering the patient's radiation dose for this examination: Automated Exposure Control, Adjustment of the mA and/or kV according to patient size, or Iterative reconstruction. FINDINGS: VASCULAR: There is good visualization of the pulmonary arterial tree into the segmental branch level. Filling defects are seen in several right upper lobe segmental arteries and also in the posterior basal segmental artery right lower lobe. These are unchanged from the previous study and may be chronic. No new filling defects are identified. LUNGS: Complete collapse of the left lung. Minimal aeration of the posterior basal region left lower lobe left mainstem bronchus is narrow and there is some material within the bronchus suggesting mucus plugging. A central lung tumor is not ruled out. Similar appearance to the previous study. No focal consolidation right lung. PLEURA AND PERICARDIUM: Small bilateral pleural effusions. There is some pleural thickening on the right lung apex and paramediastinal region. This is unchanged. MEDIASTINUM AND ADY: No mediastinal or hilar adenopathy or masses. CHEST WALL: No axillary adenopathy. Impression fractures T7, T8, and L1. Moderate thoracic kyphosis. These are unchanged. Paraspinal rods and pedicle hooks T4-T11. [address] [place] [address] PHONE: [phone] FAX: [phone] Name .................. : JUANITO Daniels Acct Number.................. : [id number] ROOM. ................. : [facility]U2 Number ................... : [id number] Stay type ............. : O/P Discharge Date......... ... : Admit Date ......... : 08/01/21 Admit Phys .................... : KIM VANESSA Date of ....... : 1965 Family Phys ................... : SEQUEIRA Phone .................. : [phone] Age ................................ : 56 Film# .................. .:[id number] Sex ................................. : F Unsigned transcriptions are preliminary reports and do not represent a medical or legal document CT CTA CHEST NON-CORONARY [place] C 64060 COMPLETE:08/01/21 09:59 FILOMENA [id number] Reason(s): chest pain, a. fib. hx of PE UPPER ABDOMEN: Unremarkable. IMPRESSION: 1. Multiple segmental pulmonary emboli right upper lobe and right lower lobe unchanged from prior exam. No new emboli identified. 2. Near complete collapse of the left lung. Narrowing of the left mainstem bronchus with material in the bronchus most likely mucus plugging. Obstructing tumor is also possible. This is unchanged. 3. Small bilateral pleural effusions. 4. Thoracic compression fractures and thoracic fusion unchanged. Electronically Reviewed and Signed By John Ya MD , 08/01/21 12:09, [place] Transcribe Initials: SSR, Transcribe Date: 08/01/21 11:04, Dictation Date: Copy for: EMERGENCY DEPT via modem Copy for: 710 MED REC Page 2 of 2 Name Value Range Interpretation Code Description Data Maura rce(s) Supporting Document(s) ID Date Data Source [id number] 08/01/2021 08:54:00 AM EDT [facility] Name Value Range Interpretation Code Description Data Maura rce(s) Supporting Document(s) CBC W/AUTOMATED DIFF [facility] COMPLETE BLOOD COUNT Leukocytes [#/volume] in Blood by Automated count 10.8 10^3/uL 4.2 - 11.0 [facility] Erythrocytes [#/volume] in Blood by Automated count 2.69 10^6/uL 4. 20 - 5.40 L [facility] Hemoglobin [Mass/volume] in Blood 9.3 g/dL 12.0 - 16.0 L [facility] Hematocrit [Volume Fraction] of Blood by Automated count 28.7 % 3 7.0 - 47.0 L [facility] Erythrocyte mean corpuscular volume [Entitic volume] b y Automated count 106.7 fL 81.0 - 101 H [facility] Erythrocyte mean corpuscular hemoglobin [Entitic mass] by Automated count 34.6 pg 27.0 - 34.0 H [facility] Erythrocyte mean corpuscular hemoglobin concentration [Mass/volume] by Automated count 32.4 g/dL 31.0 - 36.0 [facility] Erythrocyte distribution width [Ratio] by Automated count 14.6 % 11.5 - 14.5 H [facility] Platelets [#/volume] in Blood by Automated count 135 10^3/uL 150 - 45 0 L [facility] Platelet mean volume [Entitic volume] in Blood by Automated count 9.6 fL 7.4 - 10.4 [facility] Neutrophils/100 leukocytes in Blood by Automated count 91.4 % 37. 0 - 80.0 H [facility] Lymphocytes/100 leukocytes in Blood by Manual count 2.9 % 25.0 - 40.0 L [facility] Monocytes/100 leukocytes in Blood by Automated count 2.2 % 3.0 - 8.0 L [facility] Eosinophils/100 leukocytes in Blood by Automated count 2.5 % 0.0 - 7.0 [facility] Basophils/100 leukocytes in Blood by Automated count 0.4 % 0.0 - 2.5 [facility] %IG 0.6 % 0.0 - 0.0 [facility] %[facility] 0.0 % 0.0 - 0.0 [facility] al Neutrophils [#/volume] in Blood by Automated count 9.90 10^3/uL 2.00 - 6.90 H [facility] Lymphocytes [#/volume] in Blood by Automated count 0.31 10^3/uL 0.60 - 3.40 L [facility] Monocytes [#/volume] in Blood by Automated count 0.24 10^3/uL 0.00 - 0.90 [facility] Eosinophils [#/volume] in Blood by Automated count 0.27 10^3/uL 0.00 - 0.70 [facility] Basophils [#/volume] in Blood by Automated count 0.04 10^3/uL 0.00 - 0.20 [facility] #IG 0.06 10^3/uL 0.00 - 0.10 [facility] #NRBC 0.00 10^3/uL 0.00 - 0.00 [facility] MANUAL DIFF SEE BELOW [facility] ital Segmented neutrophils/100 leukocytes in Blood by Manual count 97 % 37 - 80 H [facility] %LYMPH 2 % 25 - 40 L [facility] %MONO 1 % 3 - 8 L [facility] RBC MORPH SEE BELOW [facility] Anisocytosis [Presence] in Blood by Light microscopy 1+ SHAUNA L: NONE SEEN A [facility] Macrocytes [Presence] in Blood by Light microscopy 1+ NORMAL: NONE SEEN A [facility] HYPO 1+ NORMAL: NONE SEEN A [facility] { SICKLE CELL (NORMAL: NONE SEEN ) Platelet adequacy [Presence] in Blood by Light microscopy NORMAL NORMAL: NORMAL [facility] COMMENT: ID Date Data Source [id number] 08/01/2021 08:50:00 AM EDT [facility] Name Value Range Interpretation Code Description Data Maura rce(s) Supporting Document(s) BNP 2271 PG/ML 0 - 125 H [facility] willy ID Date Data Source [id number] 08/01/2021 08:50:00 AM EDT [facility] Name Value Range Interpretation Code Description Data Maura rce(s) Supporting Document(s) TROPONIN T 0.02 NG/ML 0.00 - 0.10 [facility] spital TROPONIN T0.1 ng/ml Recommended as the c linical threshold value forTroponin T. ID Date Data Source [id number] 08/01/2021 08:45:00 AM EDT [facility] Value Range Interpretation Code Description Data Maura rce(s) Supporting Document(s) Thyrotropin [Units/volume] in Serum or Plasma by Detec tion limit <= 0.05 mIU/L 1.25 uIU/mL 0.47 - 5.01 [facility] ID Date Data Source [id number] 08/01/2021 08:33:00 AM EDT [facility] Value Range Interpretation Code Description Data Maura rce(s) Supporting Document(s) COMPREHENSIVE METABOLIC PANEL [facility] COMPREHENSIVE METABOLIC PANEL Sodium [Moles/volume] in Serum or Plasma 138 mEq/L 134 - 153 [facility] Potassium [Moles/volume] in Serum or Plasma 4.6 mEq/L 3.6 - 5.0 [facility] Chloride [Moles/volume] in Serum or Plasma 103 mEq/L 98 - 107 [facility] Carbon dioxide, total [Moles/volume] in Serum or Plasma 27 MEQ/L 22 - 30 [facility] Glucose [Mass/volume] in Serum or Plasma 110 MG/DL 70 - 99 H [facility] BUN 16 MG/DL 7 - 21 [facility] Creatinine [Mass/volume] in Serum or Plasma 1.1 MG/DL 0.7 - 1.5 [facility] BUN/CREAT 15 8 - 27 [facility] al Protein [Mass/volume] in Serum or Plasma 6.0 G/DL 6.3 - 8.2 L [facility] Albumin [Mass/volume] in Serum or Plasma 3.4 G/DL 3.9 - 5.0 L [facility] Globulin [Mass/volume] in Serum by calculation 2.6 GM/DL 2.4 - 3.2 [facility] A/G RATIO 1.3 0.8 - 2.0 [facility] Calcium [Mass/volume] in Serum or Plasma 8.8 MG/DL 8.4 - 10.2 [facility] Bilirubin.total [Mass/volume] in Serum or Plasma <0.7 MG/DL 0.2 - 1.3 [facility] Alkaline phosphatase [Enzymatic activity/volume] in Serum or Plasma 92 U/L 38 - 126 [facility] Aspartate aminotransferase [Enzymatic activity/volume] in Serum or Plasma 18 U/L 5 - 40 [facility] Alanine aminotransferase [Enzymatic activity/volume] in Seru m or Plasma 13 U/L 7 - 56 [facility] Anion gap 3 in Serum or Plasma 8.0 mmol/L 8.0 - 16.0 [facility] AGE 56 yrs [facility] al NON-AA GFR 55 mL/min [facility] willy AFR AMER GFR >60 mL/min [facility] spital Male GFR In [...] >32 mL/min Normal ID Date Data Source [id number] 08/01/2021 08:32:00 AM EDT [facility] Name Value Range Interpretation Code Description Data Maura rce(s) Supporting Document(s) Lipase [Enzymatic activity/volume] in Serum or Plasma 18 U/L 13 60 [facility] ID Date Data Source [id number] 07/31/2021 10:19:00 [place] [address] RESPIRATORY CARE REPORT ==== ---------NAME------- NUMBER SEX AGE ADMIT DISC. XRAY# F/C OSMANISUREKHAIVÁNJUSTYN Daniels [id number] F 56 07/31/21 07/31/21 [id number] BBF E/R DATE OF : 1965 M/R# [id number] PH#: [phone] LOCATION: EMERGENCY DEPT EKG [id number] COMPLE TE:07/31/21 13:13 CLC 93690 EKG 66339 COMPLETE:07/31/21 13:13 CLC 92878 PHYSICIAN: BRENDA Stoddard Name Value Range Interpretation Code Description Data Maura rce(s) Supporting Document(s) ID Date Data Source [id number] 07/31/2021 03:32:00 [place] [address] PHONE: [phone] FAX: [phone] Name .................. : SOLOMON CHANTALE E Acct Number.................. : [id number] ROOM. ................. : Number ................... : [id number] Stay type ............. : E/R Discharge Date......... ... : Admit Date ......... : 07/05 06/23 Admit Phys .................... : BRENDA Stoddard Date of ....... : 1965 Family Phys ................... : SEQUEIRA Phone .................. : [phone] Age ................................ : 56 Film# .................. .:[id number] Sex ................................. : F Unsigned transcriptions are preliminary reports and do not represent a medical or legal document CHEST PORTABLE [id number] COMPLETE:07/31/21 10:30 KBO 41898 Reason(s): Shortness of Breath PORTABLE CHEST SINGLE VIEW 10:22 AM HISTORY: Shortness of breath COMPARISON: 06/29/21 FINDINGS: Gonzalez chu fusions. Right chest port. No right hilar masses identified. Left hilum and cardiac silhouette are obscured. The right lung shows no pneumonia or edema. Increased opacification left base relative to prior. Previously noted opacification in the left upper lung is again noted. Th ere is now near-complete opacification in the left hemithorax. Leftward mediastinal shift is likely present suggesting that this is predominantly pulmonary collapse. Underlying pneumonia not excluded. Minimal blunting right costophrenic angle probably scar when correlated with prior CT. No pneumothorax or large effusion on the right. Component of left-sided pleural effusion not excluded. IMPRESSION: Increased now near-complete opacification left hemithorax particularly lower lung base versus prior radiograph. This may represent a combination of atelectasis, pleural fluid, and/or pneumonia. There is probably some shift of mediastinum toward the left favoring collapsed as the prominent abnormality. Consider possible mucous plugging in left side airways. No right lung acute abnormality is noted. [address] [place] [address] PHONE: [phone] FAX: [phone] Name .................. : JUANITO Daniels Acct Number.................. : [id number] ROOM. ................. : [facility] Number ................... : [id number] Stay type ............. : E/R Discharge Date......... ... : Admit Date ......... : 07/31/21 Admit Phys .................... : BRENDA Stoddard Date of ....... : 1965 Family Phys ................... : SEQUEIRA Phone .................. : [phone] Age ................................ : 56 Film# .................. .:[id number] Sex ................................. : F Unsigned transcriptions are preliminary reports and do not represent a medical or legal document CHEST PORTABLE [id number] COMPLETE:07/31/21 10:30 KBO 76607 Reason(s): Shortness of Breath Electronically Reviewed and Signed By Doyle Leblanc MD , 07/31/21 15:32, [facility] Transcribe Initials: SSR, Transcribe Date: 07/31/21 10:53, Dictation Date: Copy for: EMERGENCY DEPT via modem Copy for: 710 MED REC DISCHARGED Page 2 of 2 Name Value Range Interpretation Code Description Data Maura rce(s) Supporting Document(s) ID Date Data Source [id number] 07/31/2021 09:35:00 AM EDT [facility] 1 OrderSheet [facility] Emergency Department [address] [place] [address] Phone #: ext - [phone] 07/31/2021 09:34 Patient: CHANTALE SOLOMON Sex: F : 1965 Age: 56yWEIGHT:74.8 kg (S) HEIGHT:60 inches (S) BMI:32.2ALLERGIES: Penicillins, SeafoodCHIEF COMPLAINT: palpitations, chest discomfortDIAGNOSIS: Anemia, Atrial fibrillationLAB ORDERSOrder Description Priority Entered Acknowledged InitialedBMP STAT 10:05 07/31/2021 10:09 Rory Cadet ; Vaughn FLORESCBC w Diff STAT 10:07/31/2021 10:09 Rory Cadet RNMagnesium STAT 10:07/31/2021 10:09 Rory Cadet RNTroponin-T STAT 10:05 07/31/2021 10:09 Rory Cadet RNDIAGNOSTIC STUDY ORDERSOrder Description Priority Entered Acknowledged InitialedChest Portable 1 STAT 10:05 07/31/2021 10:09 Nataliyaielaura (Oxygen? Rory Gomez ; Vaughn RN(Yes)) Reason for Study: Shortness of BreathMEDICATION/IV/DRIP/FLUID ORDERSOrder Description Priority Entered Acknowledged InitialedLopressor IVP 5 mg 10:05 07/31/2021 10:31 Yandel(NOW x1, HIGH Rory Gomez RNALERTMEDICATION)NS IV 1000 mL 10:05 07/31/2021 10:32 TerryBolus: : Bolus 1000 Rory Gomez ; Vaughn RNmL (X1)GENERAL ORDERSOrder Description Priority Entered Acknowledged InitialedEKG 10:05 07/31/2021 10:09 Rory Cadet ; Vaughn RNEKG 10:57 07/31/2021 11:07 [place] ED 2 OrderSheet [facility] Emergency Department [address] [place] [address] Phone #: ext- [phone] 07/31/2021 09:34 Patient: CHANTALE SOLOMON Sex: F : 1965 Age: 56y Rory Gomez ; Nicky Del Rosario Tech1[Electronically signed by Yandel Mendes RN (13:30 07/31/2021)][Electronically signed by Rory Gomez (15:07 07/31/2021)][Electronically locked by Yandel Mendes RN (13:30 07/31/2021)] Name Value Range Interpretation Code Description Data Maura rce(s) Supporting Document(s) ID Date Data Source [id number] 07/31/2021 09:35:00 AM EDT [facility] 1 Medication Reconciliation Report [facility] Emergency Department [address] [place] [address] Phone #: ext- [phone] 07/31/2021 09:34 Patient: CHANTALE SOLOMON Sex: F : 1965 Age: 56yWeight: 74.8 kgHeight/Length: 60 in.BMI: 32.2ALLERGIES: Penicillins, SeafoodThe patient's Home Medications are listed below:CONTINUE TAKING THE FOLLOWING MEDICATIONS: Breo Ellipta Inhalation 1 puff, daily dilTIAZem HCl Oral 180 mg, daily, at bedtime Folic Acid Oral (800 mcg) 1 tablet, daily Furosemide Oral 20 mg, daily, 5 days a week Iron Oral 45 mg, daily Magnesium Oral 500 mg, daily Metoprolol Succinate ER Oral 12.5 mg, daily Motec 400 mg 2 x day Multaq Oral (400 mg), 2x a day Pantoprazole Sodium Oral 40 mg, daily, prn Potassium Oral 10 meq, 2x a day Spiriva HandiHaler Inhalation 2 puffs, daily Tylenol Extra Strength Oral (500 mg) 2 tablets, prn Xarelto Oral (10 mg) 1 tablet, dailyThe source(s) of the original Home Medication information: 2 Medication Reconciliation Report [facility] Emergency Department [address] [place] [address] Phone #: ext- [phone] 07/31/2021 09:34 Patient: CHANTALE SOLOMON Sex: F : 1965 Age: 56yNot obtained.The following Medications were given to the patient in the Emergency Department:Lopressor [IVP] IVP 5 mg, administered: 10:22 07/31/2021NS [IV] IV Fluids bolus 1000 mL over 40 minute(s), administered: 10:20 07/31/2021The following Medications were prescribed to the patient:None. Name Value Range Interpretation Code Description Data Maura rce(s) Supporting Document(s) ID Date Data Source [id number] 07/31/2021 09:35:00 AM EDT [facility] 1 Medication Administration Record [facility] Emergency Department [address] [place] [address] Phone #: ext- [phone] 07/31/2021 09:34 Patient: CHANTALE SOLOMON Sex: F : 1965 Age: 56yWeight: 74.8 kgHeight/Length: 60 inBMI: 32.2ALLERGIES: Penicillins, Seafood Date/Time Medication Administered Medication OrderedGiven LOPRESSOR [IVP] (METOPROLOL Lopressor IVP 5 mg (NOW x1,10:22 07/31/2021 TARTRATE) HIGH ALERT MEDICATION)Yandel Mendes RN Dose: 5 mg IVP Site: #1 MidlineStart NS [IV] NS IV 1000 mL Bolus: : Bolus [id number] 07/31/2021 Dose: IV Fluids mL (X1)Yandel Mendes RN Bolus: 1000 mL over 40 minute(s)---- Dispensed: 1000 mL bagStop Site: #1 [id number] 07/31/2021Terherb Mendes RN Name Value Range Interpretation Code Description Data Maura rce(s) Supporting Document(s) ID Date Data Source [id number] 07/31/2021 09:35:00 AM EDT [facility] 1 General Instructions [facility] Emergency Department [address] [place] [address] Phone #: ext- [phone] 07/31/2021 09:34 Patient: CHANTALE SOLOMON Sex: F : 1965 Age: 56yParoxysmal atrial fibrillation.Moderate chronic anemia associated with cancer.INSTRUCTIONSWarnings: Further evaluation is necessary.GENERAL WARNINGS: Return or contact your physician immediately if your condition worsens orchanges unexpectedly, if not improving as expected, or if other problems arise.Your Current Medications: Your current home medications have been reviewed.CONTINUE TAKING THE FOLLOWING MEDICATIONS:Breo Ellipta Inhalation : 1 puff daily.dilTIAZem HCl Oral : 180 mg daily, at bedtime.Folic Acid Oral : Tablet 800 mcg, 1 tablet daily.Furosemide Oral : 20 mg daily, 5 days a week.Iron Oral : 45 mg daily.Magnesium Oral : 500 mg daily.Metoprolol Succinate ER Oral : 12.5 mg daily.Motec 400 mg 2 x day*.Multaq Oral : Tablet 400 mg, 2x a day.Pantoprazole Sodium Oral : 40 mg daily, prn.Potassium Oral : 10 meq 2x a day.Spiriva HandiHaler Inhalation : 2 puffs daily.Tylenol Extra Strength Oral : Tablet 500 mg, 2 tablets, prn.Xarelto Oral : Tablet 10 mg, 1 tablet daily.Understanding of the discharge instructions verbalized by patient.Follow-up with: Osmel Alvarez MD, Cardiology, , [address] [place] [address], [facility] Follow up in two days if not better. Call for an appointment. Reason for referral: evaluation. ADDITIONAL INFORMATIONAtrial Fibrillation 2 General Instructions [facility] Emergency Department [address] [place] [address] Phone #: ext- [phone] 07/31/2021 09:34 Patient: CHANTALE SOLOMON Sex: F : 1965 Age: 56yAtrial fibrillation is a condition in which the heart beats in an irregular pattern. It is the most commonabnormal heart rhythm. It is caused by a problem in the heart's electrical pathways within the muscleof the upper chambers of the heart (atria). It can be a sign of heart disease or other health problemsthat affect the heart.Heart palpitations are a common symptom of atrial fibrillation. This is the feeling that your heart isfluttering, or beatin g fast, hard, or irregular. When the heart beats too fast, it doesn't pump blood verywell. This can cause other symptoms such as anxiety, fatigue, shortness of breath, chest pain,dizziness, or fainting. Atrial fibrillation may come and go. It can last from a few hours to a couple ofdays. Or it may become medical terminologist (chronic), lasting for months at a time or even become permanent.Some symptoms of atrial fibrillation are hard to notice. They include feeling less able to exercise.Some people have no symptoms.Atrial fibrillation is more common in older adults. It may be caused by heart disease or otherconditions in the body that affect the heart. They include: Coronary artery disease (atherosclerosis) . It is sometimes called blocked arteries. High blood pressure Disease of the heart valves Enlarged heart 3 General Instructions [facility] Emergency Department [address] [place] [address] Phone #: ext- [phone] 07/31/2021 09:34 Patient: CHANTALE SOLOMON Sex: F : 1965 Age: 56y Heart failureAtrial fibrillation can also occur without heart disease because of: Overactive thyroid (hyperthyroid) Chronic lung disease (COPD, emphysema, or bronchitis) Heavy alcohol use Heart stimulants such as cocaine, amphetamines, diet pills, certain decongestant cold medicines, caffeine, or nicotine Infection Blood clot in the lung (pulmonary embolus) Diabetes Chronic kidney disease Obesity Extreme and continued ath letic conditioning Certain genetic diseasesTreating or removing these causes will help your treatment for atrial fibrillation. It will also make it lesslikely for it to come back.Atrial fibrillation can alternate back and forth with another abnormal rhythm called atrial flutter. Atrialflutter is a more regular heart rhythm. It also linked to an increased risk for stroke. Proper treatmentcan lower your risk for stroke.Home careFollow these guidelines when caring for yourself at home: Go back to your usual activities as soon as you are feeling back to normal. If you smoke, stop smoking. Contact your healthcare provider or a local stop-smoking program for help. Don't use stimulants like alcohol, cocaine, amphetamines, diet pills, certain decongestant cold medicines, caffeine, or nicotine. If your provider prescribed medicine to stop atrial fibrillation from coming back, take it exactly as directed. Some medicines must be taken every day, not just when you have symptoms. This will help them work as they should. 4 General Instructions [facility] Emergency Department [address] [place] [address] Phone #: ext- [phone] 07/31/2021 09:34 Patient: CHANTALE SOLOMON Sex: F : 1965 Age: 56y If you were prescribed a blood-thinning medicine called warfarin to lower your risk for stroke, have your blood tested regularly as advised by your provider. This will make sure you are getting the dose that is right for you. It also lowers your risk for side effects. You may have been prescribed other blood-thinning medicines that don't need regular testing.Follow-up careFollow up with your healthcare provider, or as advised.When to seek medical adviceCall your healthcare provider right away if any of these following occur: Swelling in the legs that gets worse Unexpected weight gain Bleeding easier than normal Pain, redness, or swelling in one legCall 911Calling 911 is the fastest and safest way to get the emergency department. The paramedics can alsostart treatment on the way to the hospital, if needed.Call 911 or seek medical help right away if any of the f ollowing occur: Weakness of an arm or leg or one side of the face Chest pain Shortness of breath, or feeling that you can't get enough air Feeling lightheaded, faint, or dizzy Your heartbeat is very rapid, slow, or irregular compared with your regular heartbeat Bleeding that is not easily controlled Trouble with speech or vision Extreme drowsiness, confusion, dizziness, or fainting [phone] [employer] [place] [address]. All rights reserved. This information is not intended as asubstitute for professional medical care. Always follow your healthcare professional's instructions.Anemia, Type Not Specified (Adult) 5 General Instructions [facility] Emergency Department [address] [place] [address] Phone #: ext- [phone] 07/31/2021 09:34 Patient: CHANTALE SOLOMON Sex: F : 1965 Age: 56yRed blood cells carry oxygen to the tissues of your body. Anemia is a condition in which you have toofew red blood cells. You need iron to make red blood cells. The most common cause of anemia is nothaving enough iron. This may be because of: Loss of blood. This can be caused by heavy menstrual periods. It can also be caused by bleeding from the stomach or intestines. Poor diet. You may not be eating enough foods that contain iron.Other causes of anemia include certain vitamin deficiencies, chronic kidney disease, and otherchronic illnesses.Anemia makes you feel tired and run down. When anemia becomes severe, your skin becomes pale.You may feel short of breath after physical activity. Other symptoms include: Headaches Dizziness Leg cramps with physical activity DrowsinessHome careFollow these guidelines when caring for yourself at home: Don't overexert yourself. Talk with your healthcare provider before traveling by air or traveling to high altitudes.Follow-up careFollow up with your healthcare provider, or as advised. You may need other blood tests to find out theexact cause of your anemia. If you had testing done today, it may take several days to get all of theresults. You can follow up with your own healthcare provider to get the results.Call 91all 911 or get immediate medical care if any of the following occur: Shortness of breath or chest pain Dizziness or fainting gets worse Vomiting blood or passing red or black-colored stool [phone] [employer] [place] [address], [place] [address]. All rights reserved. 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 Always follow your healthcare professional's instructions. You have been given the following additional information: Atrial Fibrillation Anemia, Type Not Specified (Adult)(Electronically signed by Rory Gomez 07/31/2021 15:07) Name Value Range Interpretation Code Description Data Maura rce(s) Supporting Document(s) ID Date Data Source [id number] 07/31/2021 09:35:00 AM EDT [facility] 1 Clinical Report - Nurses [facility] Emergency Department [address] [place] [address] Phone #: ext [phone] 07/31/2021 09:34 Patient: CHANTALE SOLOMON Sex: F : 1965 Age: 56yTRIAGEArrived by private vehicle. Historian: patient. ( pt has hx A Fib and awoke this morning with irregularheart rate, pt has not taken morning dose of cardizem or motec, + SOB with tightnessd).Triage time: 09:44 07/31/2021. Acuity: LEVEL 3.Chief Complaint: (A FIB).09:52 07/31/21.This started today. She has had difficulty breathing. No sweating episodes, nausea, vomiting, fever orcough.Treatment STOCKROOM ATTENDANT:None. --09:52 07/31/21 Yandel Mendes, RN09:44 07/31/21. BP: 110/74 (regular adult cuff) taken on the right arm, via an automated monitor, whilesitting. MAP: 86. HR: 115. RR: 18. O2 saturation: 100% on nasal cannula at 2 liters/minute. Temp: 98.2 F(oral). Pain level now: 04/12. Additional comments: chronic pain both shoulder. --09:52 07/31/21 MARK Lau.Weight: 74.8 kg stated. Height/Length: 60 inches Per Patient. BMI: 32.2. --09:44 07/31/21 Yandel Mendes RN.MedicationsBreo Ellipta Inhalation 1 puff, daily. dilTIAZem HCl Oral 180 mg, daily at bedtime. Folic Acid Oral (Tablet 800 mcg) 1 tablet, daily. Furosemide Oral 20 mg, daily (5 days a week). Iron Oral 45 mg, daily. Magnesium Oral 500 mg, daily. Metoprolol Succinate ER Oral 12.5 mg, daily. Multaq Oral (Tablet 400 mg), 2x a day. Pantoprazole Sodium Oral 40 mg, daily as needed. Potassium Oral 10 meq, 2x a day. Spiriva HandiHaler Inhalation 2 puffs, daily. Xarelto Oral (Tablet 10 mg) 1 tablet, daily. --09:47 07/31/21 Yandel Mendes RN Motec 400 mg 2 x day. --09:48 07/31/21 Yandel Mendes RN Tylenol Extra Strength Oral (Tablet 500 mg) 2 tablets, as needed. --09:48 07/31/21 Yandel Mendes RN.AllergiesPenicillins. 2 Clinical Report - Nurses [facility] Emergency Department [address] [place] [address] Phone #: ext- [phone] 07/31/2021 09:34 Patient: CHANTALE SOLOMON Sex: F : 1965 Age: 56y Seafood. --09:47 07/31/21 Yandel Mendes RN. History 09:52 07/31/21. SOCIAL HX: Former smoker. No alcohol use or drug use. She was offered HIV testing but decli rob and hepatitis C testing but declined. She [...] hurt yourself before today?". ABUSE ASSESSMENT: Abuse history: reports abuse. (no). Abuse assessment. No suspicion of abuse. NUTRITIONAL RISK ASSESSMENT: The nutritional risk assessment revealed no deficiencies. FUNCTIONAL ASSESSMENT: Functional assessment: no impairments noted. LEARNING NEEDS ASSESSMENT: The learning needs assessment revealed no barriers. FALL RISK ASSESSMENT: Fall risk assessment completed. No risk factors identified. SKIN INTEGRITY ASSESSMENT: Skin integrity risk assessment completed. No skin integrity risk identified. --09:52 07/31/21 Yandel Mendes RN. FAMILY HX: Father: Diabetes Mellitus. --10:38 07/31/21 Rory Gomez. Interventions 09:52 07/31/21. Identification band on patient. To room. --09:52 07/31/21 Yandel Mendes RN.PHYSICAL ASSESSMENTAmbulatory to room.GENERAL / NEURO / PSYCH: Alert. Oriented X 4.RESPIRATORY: Respirations not labored. Chest nontender. Breath sounds within normal limits.CVS: Cardiac rhythm: atrial fibrillation; (0935). Pulses within normal limits.GI / : Abdomen soft and nontender.EXTREMITIES: No lower extremity edema.SKIN: Skin is warm and dry. Skin is non-tender. --09:53 07/31/21 Yandel Mendes RN.NURSING PROGRESS NOTESCardiac rhythm: atrial fibrillation; (0935). Oxygen administered by nasal cannula at 2 liters. 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 EKG time: (09:35 07/31/2021). EKG was performed by nasima vo to the ED physician. A fib. Patient gowned. Head of bed elevated 75 degrees. Two patientidentifiers checked. Call light placed in reach. Bed placed in lowest position. Brakes of bed on. Patientready for evaluation- ED physician notified. --09:54 07/31/21 Yandel Mendes RN10:02 07/31/21. BP: 97/80. HR: 97. RR: 23. O2 saturation: 100%. --10:02 07/31/21 [facility] Yane Del Rosario10:15 07/31/2021 Site #1 started via IV using a Midline catheter with an 20g angiocath; one attempt. [place] flushed with 10 mL saline. --10:31 07/31/21 Yandel Mendes RN10:20 07/31/2021 Started bag #1 1000 mL IV Fluids NS; bolus of 1000 mL over 40 minute(s) via site #1 viaIV pump. Allergies verified and confirmed 5 rights. IV patency established. IV site checked: no pain,redness, or swelling. IV flushed thoroughly pre- and post-medication administration. Information reviewedwith patient. --10:32 07/31/21 Yandel Mendes RN10:22 07/31/2021 Lopressor (Metoprolol Tartrate) IVP 5 mg given over 5 minute(s) via site #1. Allergiesverified and confirmed 5 rights. IV patency established. IV site checked: no pain, redness, or swelling. IVflushed thoroughly pre- and post-medication administration. IVP given by RN. Information reviewed withpatient. --10:31 07/31/21 Yandel Mendes RNChecked patient name and birthdate. Blood samples drawn by tech. (1010). Portable chest x-raycompleted. Shown to the ED physician (1007). --10:32 07/31/21 Yandel Mendes RN11:07 07/31/21. BP: 107/56. MAP: 73. HR: 84. RR: 19. O2 saturation: 100%. --11:08 07/31/21 [facility] [id number] time: (10:58 07/31/2021). EKG was performed by a tech and shown to the ED physician. --11: [facility] Nicky Del Rosario Dnxt099:11 07/31/2021 Lopressor IVP Response: symptoms have improved the patient feels better. --11:119 Yandel Mendes RN11:11 07/31/2021 IV Fluids NS via IV site #1 Discontinued: bag #1 infused. Total amount infused: 1000 mL.--11:11 07/31/21 Yandel Mendes RN( 1055 C M in nsr M D notified and EKG repeated). --11:12 07/31/21 Yandel Mendes RN11:34 07/31/21. BP: 103/52. HR: 84. RR: 18. O2 saturation: 100%. --11:34 07/31/21 [facility] Mewr892:45 07/31/2021 Site #1 removed upon discharge. Catheter intact. Bandaid applied (infusa port flushedwith hep lock 300 units). --12:08 07/31/21 Yandel Mendes RN. 4 Clinical Report - Nurses [facility] Emergency Department [address] [place] [address] Phone #: ext- [phone] 07/31/2021 09:34 Patient: CHANTALE SOLOMON Sex: F : 1965 Age: 56yDISPOSITION / DISCHARGE 11:47 07/31/21. BP: 104/78. HR: 84. RR: 16. O2 saturation: 100%. Temp: 98.6 F. Pain level now 03/12. --11:47 07/31/21 [place] operations professional, Nicky Tech1 11:50 07/31/21. Departure time: 11:50 07/31/2021. Condition at departure: improved. Reviewed medication(s) (no changes). Reviewed referral to a faith doctor. Patient verbalized understanding. Written instructions provided in Lithuanian. The patient was discharged by the physician. She was discharged home. She left ambulatory and via private vehicle. Patient driving. --12:09 07/31/21 Yandel Mendes RN.Locked/Released at 07/31/2021 13:30 by Yandel Mendes RN Name Value Range Interpretation Code Description Data Maura rce(s) Supporting Document(s) ID Date Data Source [id number] 07/31/2021 09:35:00 AM EDT [facility] 1 Clinical Report - Physicians/Mid Levels [facility] Emergency Department [address] [place] [address] Phone #: ext- [phone] 07/31/2021 09:34 Patient: CHANTALE SOLOMON Sex: F : 1965 Age: 56y Time Seen: 10:20 07/31/2021. Arrived- By private vehicle. Historian- patient.HISTORY OF PRESENT ILLNESS Chief Complaint: PALPITATIONS and CHEST DISCOMFORT. It is described as a fast heart beat and an irregular heart beat. Is still present. Modifying factors. Not worsened by anything. No chest pain, sweating episodes, fainting episodes, dizziness or tingling. No muscle spasms. She has had chest discomfort and difficulty breathing. ( States her COPD was a cting up over last several days. No fever or chest pain. woke up this morning and felt her a. fib was back. Scheduled for ablation in several weeks). ( She has not taken her Multaq this morning). Similar symptoms previously. Patient has had similar symptoms several times. Recent medical care: Not recently seen/assessed.REVIEW OF SYSTEMSNo fever, cough, enlarged lymph nodes, headache or sore throat. No nausea, skin rash or vomiting. Shehas not had a poor appetite. All other systems reviewed and are negative.PAST HISTORYSee nurses notes. Heart rhythm problems. Atrial fibrillation. Lung disease. Problems: DVT - Deep Venous Thrombosis. COPD - Chronic Obstructive Pulmonary Disease. Congestive Heart Failure. Anemia. Chronic Back Pain. Pulmonary Embolism. Pneumonia. TIA - Transient Ischemic Attack. Hypomagnesemia. Intervertebral Disc Disease. Additional Surgeries: Appendectomy. Back Surgery. (Rods in t spine, crushed t7 t8) Dilatation Curettage. Septoplasty. Tubal Ligation. 2 Clinical Report - Physicians/Mid Levels [facility] Emergency Department [address] [place] [address] Phone #: ext- [phone] 07/31/2021 09:34 Patient: CHANTALE SOLOMON [facility]#: [id number] Sex: F : 1965 Age: 56y Medications: Tylenol Extra Strength Oral (Tablet 500 mg) 2 tablets, as needed. Motec 400 mg 2 x day. Breo Ellipta Inhalation 1 puff, daily. dilTIAZem HCl Oral 180 mg, daily at bedtime. Folic Acid Oral (Tablet 800 mcg) 1 tablet, daily. Furosemide Oral 20 mg, daily (5 days a week). Iron Oral 45 mg, daily. Magnesium Oral 500 mg, daily. Metoprolol Succinate ER Oral 12.5 mg, daily. Multaq Oral (Tablet 400 mg), 2x a day. Pantoprazole Sodium Oral 40 mg, daily as needed. Potassium Oral 10 meq, 2x a day. Spiriva HandiHaler Inhalation 2 puffs, daily. Xarelto Oral (Tablet 10 mg) 1 tablet, daily. Allergies: Penicillins. Seafood.SOCIAL HISTORYFormer smoker.FAMILY HISTORYFather: Diabetes Mellitus.ADDITIONAL NOTESThe nursing notes have been reviewed.PHYSICAL EXAMVital Signs: 07/31/2021 09:44 BP: sitting 110/74. MAP: 86. HR: 115. RR: 18. O2 saturation: 100% onnasal cannula at 2 liters/minute. Temp: 98.2 F. Pain level now: 610.Appearance: Alert. Oriented X3. No acute distress.Eyes: Pupils equal, round and reactive to light. Eyes normal inspection.ENT: Nose normal. Pharynx normal.Neck: Normal inspection. Neck supple.CVS: Tachycardia. Abnormal rhythm, which is irregularly irregular. Pulses normal.Respiratory: Moderately decreased air movement in the left mid-lung posteriorly and upper lung anteriorlyand posteriorly. Painless inspiration. Chest nontender.Abdomen: Soft and nontender. Bowel sounds normal. No organomegaly.Skin: Skin warm. Normal skin color. No rash. Normal skin turgor. Pallor.Extremities: Extremities exhibit normal ROM. No lower extremity edema.Neuro: Oriented X 3. No motor deficit. No sensory deficit. 3 Clinical Report - Physicians/[facility] Emergency Department [address] [place] [address] Phone #: ext- [phone] 07/31/2021 09:34 Patient: CHANTALE SOLOMON Sex: F : 1965 Age: 56yLABS, X-RAYS, AND EKGEKG: EKG time: 09:37 07/31/2021. Rate: 103. Atrial fibrillation. Poor R wave progression. LVH. Leftaxis deviation. Normal QT. Non- specific ST segment / T wave abnormalities. T wave inversion in lead Iand aVL. The study has been interpreted contemporaneously by me. Interpretation time: :.EKG #2: EKG time: 10:58 07/31/2021. No acute ischemia. Rate: 80. Normal KATIE. Normal QRScomplex. Normal axis. Normal QT. T wave inversion in lead I and aVL. The study has beeninterpreted contemporaneously by me. Interpretation time: 11:06 07/31/2021.Chest X-ray: No CHF. (opacification of left lung).Laboratory Tests: BMP: (SARAH: 07/31/2021 10:21) ( MsgRcvd 07/31/2021 11:02) Final results Test Result Flag Units (Reference) BASIC METABOLIC PANEL BASIC METABOLIC PANEL SODIUM 138 mEq/L (134 - 153) POTASSIUM 4.7 mEq/L (3.6 - 5.0) CHLORIDE 101 mEq/L (98 - 107) CO2 27 MEQ/L (22 - 30) GLUCOSE 102 H MG/DL (70 - 99) BUN 21 MG/DL (7 - 21) CREATININE 1.3 MG/DL (0.7 - 1.5) BUN/CREAT 16 (8 - 27) CALCIUM 9.1 MG/DL (8.4 - 10.2) ANION GAP 10.0 mmol/L (8.0 - 16.0) AGE 56 yrs AFR AMER GFR 54 mL/min NON-AA GFR 45 mL/min Male GFR Interprentation 20-49 yrs >60 mL/min Normal 50-59 yrs >56 mL/min Normal 60-69 yrs >49 mL/min Normal 70-79yrs >42 mL/min Normal 80 and above >35 mL/min Normal Female GFR Interpretation 20-39 yrs >60 mL/min Normal 40-49 yrs >58 mL/min Normal 50-59 yrs >51 mL/min Normal 60-69 yrs >45 mL/min Normal 70-79 yrs >39 mL/min Normal 80 and above >32 mL/min Normal CBC w Diff: (SARAH: 07/31/2021 10:21) ( MsgRcvd 07/31/2021 11:06) Final results Test Result Flag Units (Reference) CBC W/AUTOMATED DIFF COMPLETE BLOOD COUNT WBC 12.4 H 10/uL (4.2 - 11.0) RBC 2.81 L 10/uL (4.20 - 5.40) HEMOGLOBIN 9.9 L g/dL (12.0 - 16.0) HEMATOCRIT 30.4 L % (37.0 - 47.0) MCV 108.2 H fL (81.0 - 101) MCH 35.2 H pg (27.0 - 34.0) MCHC 32.6 g/dL (31.0 - 36.0) RDW 14.8 H % (11.5 - 14.5) PLATELETS 174 10/uL (150 - 450) MPV 9.6 fL (7.4 - 10.4) NEUT 91.5 H % (37.0 - 80.0) LYMPH 3.0 L % (25.0 - 40.0) MONO 1.8 L % (3.0 - 8.0) EOS 3.1 % (0.0 - 7.0) BASO 0.3 % (0.0 - 2.5) 4 Clinical Report - Physicians/Mid Levels [facility] Emergency Department [address] [place] [address] Phone #: ext- [phone] 07/31/2021 09:34 Patient: CHANTALE SOLOMON Sex: F : 1965 Age: 56y %IG 0.3 H % (0.0 - 0.0) %NRBC 0.0 % (0.0 - 0.0) #NEUT 11.35 H 10/uL (2.00 - 6.90) #LYMPH 0.37 L 10/uL (0.60 - 3.40) #MONO 0.22 10/uL (0.00 - 0.90) #EOS 0.38 10/uL (0.00 - 0.70) #BASO 0.04 10/uL (0.00 - 0.20) #IG 0.04 10/uL (0.00 - 0.10) #NRBC 0.00 10/uL (0.00 - 0.00) MANUAL DIFF SEE BELOW SEGS 95 H % (37 - 80) %LYMPH 3 L % (25 - 40) %MONO 1 L % (3 - 8) %EOS 1 % (0 - 7) RBC MORPH SEE BELOW ANISO 1+ A (NORMAL: NONE HYPO 1+ A (NORMAL: NONE { SICKLE CELL (NORMAL: NONE SEEN ) PLT EST NORMAL (NORMAL: SHAUNA COMMENT: Magnesium: (SARAH: 07/31/2021 10:21) ( [facility] 07/31/2021 11:00) Final results Test Result Flag Units (Reference) MAGNESIUM 1.9 MG/DL (1.7 - 2.2)Troponin-T: (SARAH: 07/31/2021 10:21) ( [facility] 07/31/2021 10:48) Final results Test Result Flag Units (Reference) TROPONIN T 0.02 NG/ML (0.00 - 0.10) TROPONIN T0.1 ng/ml Recommended as the clinical threshold value Kathie MaxwellChest Portable 1 View: (SARAH: 07/31/2021 10:05) ( MsgRcvd 07/31/2021 10:53) In ProgressCHEST PORTABLEReason(s): Shortness of BreathTRANSP ORTATION: P IV? O2? Oxygen?(Yes) Room: [place] [address] PHONE: [phone] FAX: [phone] Name .................. : JUANITO Daniels Acct Number.................. : [id number] ROOM. ................. : VT-[id number] MR Number ................... : [id number] Stay type ............. : E/R Discharge Date......... ... : Admit Date ......... : 07/31/21 Admit Phys .................... : BRENDA Stoddard Date of ....... : 1965 Family Phys ................... : SEQUEIRA Phone .................. : [phone] Age ................................ : 56 Film# .................. .:[id number] Sex ................................. : F Unsigned transcriptions are preliminary reports and do not represent a medical or legal document CHEST PORTABLE [id number] COMPLETE:07/31/21 10:30 KBO [id number] Reason(s): Shortness of Breath 5 Clinical Report - Physicians/Mid Levels [facility] Emergency Department [address] [place] [address] Phone #: ext- [phone] 07/31/2021 09:34 Patient: CHANTALE SOLOMON Sex: F : 1965 Age: 56y PORTABLE CHEST SINGLE VIEW 10:22 AM HISTORY: Shortness of breath COMPARISON: 06/29/21 FINDINGS: Gonzalez chu fusions. Right chest port. No right hilar masses identified. Left hilum and cardiac silhouette are obscured. The right lung shows no pneumonia or edema. Increased opacif ication left base relative to prior. Previously noted opacification in the left upper lung is again noted. There is now near-complete opacification in the left hemithorax. Leftward mediastinal shift is likely present suggesting that this is predominantly pulmonary collapse. Underlying pneumonia not excluded. Minimal blunting right costophrenic angle probably scar when correlated with prior CT. No pneumothorax or large effusion on the right. Component of left-sided pleural effusion not excluded. IMPRESSION: Increased now near-complete opacification left hemithorax particularly lower lung base versus prior radiograph. This may represent a combination of atelectasis, pleural fluid, and/or pneumonia. There is probably some shift of mediastinum toward the left favoring collapsed as the prominent abnormality. Consider possible mucous plugging in left side airways. No right lung acute abnormality is noted. Page 1of [address] [place] [address] PHONE: [phone] FAX: [phone] Name .................. : JUANITO Daniels Acct Number.................. : [id number] ROOM. ................. : MR Number ................... : [id number] Stay type ............. : E/R Discharge Date......... ... : Admit Date ......... : 07/31/21 Admit Phys .................... : BRENDA Stoddard Date of ....... : 1965 Family Phys ................... : SEQUEIRA Phone .................. : [phone] Age ................................ : 56 Film# .................. .:[id number] Sex ................................. : F Unsigned transcriptions are preliminary reports and do not represent a medical or legal document CHEST PORTABLE [id number] COMPLETE:07/31/21 10:30 KBO [id number] Reason(s): Shortness of Breath Electronically Reviewed and Signed By DCTNAME , SIGNDATE, SCB Transcribe Initials: NARESH, Transcribe Date: 07/31/21 10:53, Dictation Date: 6 Clinical Report - Physicians/Mid Levels [facility] Emergency Department [address] [place] [address] Phone #: [phone] ext- [phone] 07/31/2021 09:34 Patient: CHANTALE SOLOMON Sex: F : 1965 Age: 56y <<REPDIST>> Page 2 of 2.PROGRESS AND PROCEDURESCourse of Care: 10:41 07/31/21. Similar episode months ago, but she converted spontaneously and didnot require admission 10:58 07/31/21. Patient converted to sinus rhythm. No chest pain. 11:37 07/31/21. Laboratories demonstrated similar anemia and mild leukocytosis. No hypoxemia at this time. No ischemic changes on EKG. Discussed case with patient's primary care sara campos. Disposition: Discharged. Condition: stable.CLINICAL IMPRESSION Paroxysmal atrial fibrillation. Moderate chronic anemia associated with cancer.INSTRUCTIONS Warnings: Further evaluation is necessary. GENERAL WARNINGS: Return or contact your physician immediately if your condition worsens or changes unexpectedly, if not improving as expected, or if other problems arise. Your Current Medications: Your current home medications have been reviewed. CONTINUE TAKING THE FOLLOWING MEDICATIONS: Breo Ellipta Inhalation : 1 puff daily. dilTIAZem HCl Oral : 180 mg daily, at bedtime. Folic Acid Oral : Tablet 800 mcg, 1 tablet daily. Furosemide Oral : 20 mg daily, 5 days a week. Iron Oral : 45 mg daily. Magnesium Oral : 500 mg daily. Metoprolol Succinate ER Oral : 12.5 mg daily. 7 Clinical Report - Physicians/Mid Levels [facility] Emergency Department [address] [place] [address] Phone #: ext- [phone] 07/31/2021 09:34 Patient: CHANTALE SOLOMON Sex: F : 1965 Age: 56y Motec 400 mg 2 x day*. Multaq Oral : Tablet 400 mg, 2x a day. Pantoprazole Sod ium Oral : 40 mg daily, prn. Potassium Oral : 10 meq 2x a day. Spiriva HandiHaler Inhalation : 2 puffs daily. Tylenol Extra Strength Oral : Tablet 500 mg, 2 tablets, prn. Xarelto Oral : Tablet 10 mg, 1 tablet daily. Understanding of the discharge instructions verbalized by patient. Follow-up with: Osmel Alvarez MD, Cardiology, , [address] [place] [address], [id number] Follow up in two days if not better. Call for an appointment. Reason for referral: evaluation.(Electronically signed by Rory Gomez 07/31/2021 15:07) Name Value Range Interpretation Code Description Data Maura rce(s) Supporting Document(s) ID Date Data Source [id number] 07/31/2021 11:05:00 AM EDT [facility] Name Value Range Interpretation Code Description Data Maura rce(s) Supporting Document(s) CBC W/AUTOMATED DIFF [facility] COMPLETE BLOOD COUNT Leukocytes [#/volume] in Blood by Automated count 12.4 10^3/uL 4.2 - 11.0 H [facility] Erythrocytes [#/volume] in Blood by Automated count 2.81 10^6/uL 4. 20 - 5.40 L [facility] Hemoglobin [Mass/volume] in Blood 9.9 g/dL 12.0 - 16.0 L [facility] Hematocrit [Volume Fraction] of Blood by Automated count 30.4 % 3 7.0 - 47.0 L [facility] Erythrocyte mean corpuscular volume [Entitic volume] b y Automated count 108.2 fL 81.0 - 101 H [facility] Erythrocyte mean corpuscular hemoglobin [Entitic mass] by Automated count 35.2 pg 27.0 - 34.0 H [facility] Erythrocyte mean corpuscular hemoglobin concentration [Mass/volume] by Automated count 32.6 g/dL 31.0 - 36.0 [facility] Erythrocyte distribution width [Ratio] by Automated count 14.8 % 11.5 - 14.5 H [facility] Platelets [#/volume] in Blood by Automated count 174 10^3/uL 150 - 45 0 [facility] Platelet mean volume [Entitic volume] in Blood by Automated count 9.6 fL 7.4 - 10.4 [facility] Neutrophils/100 leukocytes in Blood by Automated count 91.5 % 37. 0 - 80.0 H [facility] Lymphocytes/100 leukocytes in Blood by Manual count 3.0 % 25.0 - 40.0 L [facility] Monocytes/100 leukocytes in Blood by Automated count 1.8 % 3.0 - 8.0 L [facility] Eosinophils/100 leukocytes in Blood by Automated count 3.1 % 0.0 - 7.0 [facility] Basophils/100 leukocytes in Blood by Automated count 0.3 % 0.0 - 2.5 [facility] %IG 0.3 % 0.0 - 0.0 H [facility] al %NRBC 0.0 % 0.0 - 0.0 [facility] al Neutrophils [#/volume] in Blood by Automated count 11.35 10^3/uL 2. 00 - 6.90 H [facility] Lymphocytes [#/volume] in Blood by Automated count 0.37 10^3/uL 0.60 - 3.40 L [facility] Monocytes [#/volume] in Blood by Automated count 0.22 10^3/uL 0.00 - 0.90 [facility] Eosinophils [#/volume] in Blood by Automated count 0.38 10^3/uL 0.00 - 0.70 [facility] Basophils [#/volume] in Blood by Automated count 0.04 10^3/uL 0.00 - 0.20 [facility] #IG 0.04 10^3/uL 0.00 - 0.10 [facility] #NRBC 0.00 10^3/uL 0.00 - 0.00 [facility] MANUAL DIFF SEE BELOW [facility] ital Segmented neutrophils/100 leukocytes in Blood by Manual count 95 % 37 - 80 H [facility] %LYMPH 3 % 25 - 40 L [facility] al %MONO 1 % 3 - 8 L [facility] al %EOS 1 % 0 - 7 [facility] al RBC MORPH SEE BELOW [facility] al Anisocytosis [Presence] in Blood by Light microscopy 1+ SHAUNA L: NONE SEEN A [facility] HYPO 1+ NORMAL: NONE SEEN A [facility] { SICKLE CELL (NORMAL: NONE SEEN ) Platelet adequacy [Presence] in Blood by Light microscopy NORMAL NORMAL: NORMAL [facility] COMMENT: ID Date Data Source [id number] 07/31/2021 11:02:00 AM EDT [facility] Name Value Range Interpretation Code Description Data Maura rce(s) Supporting Document(s) BASIC METABOLIC PANEL [facility] BASIC METABOLIC PANEL Sodium [Moles/volume] in Serum or Plasma 138 mEq/L 134 - 153 [facility] Potassium [Moles/volume] in Serum or Plasma 4.7 mEq/L 3.6 - 5.0 [facility] Chloride [Moles/volume] in Serum or Plasma 101 mEq/L 98 - 107 [facility] Carbon dioxide, total [Moles/volume] in Serum or Plasma 27 MEQ/L 22 - 30 [facility] Glucose [Mass/volume] in Serum or Plasma 102 MG/DL 70 - 99 H [facility] BUN 21 MG/DL 7 - 21 [facility] Creatinine [Mass/volume] in Serum or Plasma 1.3 MG/DL 0.7 - 1.5 [facility] BUN/CREAT 16 8 - 27 [facility] Calcium [Mass/volume] in Serum or Plasma 9.1 MG/DL 8.4 - 10.2 [facility] Anion gap 3 in Serum or Plasma 10.0 mmol/L 8.0 - 16.0 [facility] AGE 56 yrs [facility] AFR AMER GFR 54 mL/min [facility] NON-AA GFR 45 mL/min [facility] willy Male GFR Inter prentation 20-49 yrs >60 [...] >32 mL/min Normal ID Date Data Source [id number] 07/31/2021 11:00:00 AM EDT [facility] Name Value Range Interpretation Code Description Data Maura rce(s) Supporting Document(s) Magnesium [Mass/volume] in Serum or Plasma 1.9 MG/DL 1.7 - 2.2 [facility] ID Date Data Source [id number] 07/31/2021 10:48:00 AM EDT [facility] Name Value Range Interpretation Code Description Data Maura rce(s) Supporting Document(s) TROPONIN T 0.02 NG/ML 0.00 - 0.10 [facility] TROPONIN T0.1 ng/ml Recommended as the c linical threshold value forTroponin T. ID Date Data Source [id number] 07/02/2021 07:33:00 [place] [address] RESPIRATORY CARE REPORT ==== ---------NAME------- NUMBER SEX AGE ADMIT DISC. XRAY# F/C CYNDY Daniels [id number] F 56 06/29/21 06/29/21 [id number] [facility] E/R DATE OF : 1965 M/R# [id number] #: [id number] TR-07 LOCATION: EMERGENCY DEPT EKG [id number] COMP LETE:06/30/21 00:28 [place] 03328 EKG 91557 COMPLETE:06/30/21 02:04 VMT 85388 PHYSICIAN: BRENDA tSoddard Name Value Range Interpretation Code Description Data Maura rce(s) Supporting Document(s) ID Date Data Source [id number] 06/29/2021 10:49:00 AM EDT [facility] 1 OrderSheet [facility] Emergency Department [address] [place] [address] Phone #: ext- [phone] 06/29/2021 10:46 Patient: CHANTALE SOLOMON Sex: F : 1965 Age: 56yWEIGHT:77.1 kg (S) HEIGHT:60 inches (S) BMI:33.2ALLERGIES: Penicillins, SeafoodCHIEF COMPLAINT: palpitationsDIAGNOSIS: Anemia, Atrial fibrillationLAB ORDERSOrder Description Priority Entered Acknowledged InitialedCBC w Diff STAT 10:59 06/29/2021 11:08 Rory Cadet RNBNP STAT 10:59 06/29/2021 11:08 Rory Cadet RNCMP STAT 10:59 06/29/2021 11:08 Rory Cadet RNTroponin-T STAT 10:59 06/29/2021 11:08 Rory Cadet RNMagnesium STAT 10:59 06/29/2021 11:08 Rory Cadet ; Vaughn FLORESDIAGNOSTIC STUDY ORDERSOrder Description Priority Entered Acknowledged InitialedChest Portable 1 STAT 10:59 06/29/2021 11:08 Rory Tsai ; Vaughn RN(Oxygen?(No)) Reason for S tudy: CHFMEDICATION/IV/DRIP/FLUID ORDERSOrder Description Priority Entered Acknowledged InitialedGENERAL ORDERSOrder Description Priority Entered Acknowledged InitialedEKG 10:59 06/29/2021 11:08 Rory Cadet ; Vaughn RN[Electronically signed by Rory Gomez (15:34 06/29/2021)][Electronically signed by Yandel Mendes RN (16:50 06/29/2021)][Electronically locked by Yandel Mendes RN (16:50 06/29/2021)] Name Value Range Interpretation Code Description Data Maura rce(s) Supporting Document(s) ID Date Data Source [id number] 06/29/2021 10:49:00 AM EDT [facility] 1 Medication Reconciliation Report [facility] Emergency Department [address] [place] [address] Phone #: ext- [phone] 06/29/2021 10:46 Patient: CHANTALE SOLOMON Sex: F : 1965 Age: 56yWeight: 77.1 kgHeight/Length: 60 in.BMI: 33.2ALLERGIES: Penicillins, SeafoodThe patient's Home Medications are listed below:STOP TAKING THE FOLLOWING MEDICATIONS: Furosemide Oral 20 mg, dailyCONTINUE TAKING THE FOLLOWING MEDICATIONS: Breo Ellipta Inhalation 1 puff, daily dilTIAZem HCl Oral 180 mg, daily, at bedtime Folic Acid Oral (800 mcg) 1 tablet, daily Iron Oral 45 mg, daily Magnesium Oral 500 mg, daily Metoprolol Succinate ER Oral 12.5 mg, daily Multaq Oral (400 mg), 2x a day Pantoprazole Sodium Oral 40 mg, daily Potassium Oral 10 meq, 2x a day Spiriva HandiHaler Inhalation 2 puffs, daily Xarelto Oral (10 mg) 1 tablet, dailyThe source(s) of the original Home Medication information:Not obtained. 2 Medication Reconciliation Report [facility] Emergency Department [address] [place] [address] Phone #: ext [phone] 06/29/2021 10:46 Patient: CHANTALE SOLOMON Sex: F : 1965 Age: 56yThe following Medications were given to the patient in the Emergency Department:None.The following Medications were prescribed to the patient:None. Name Value Range Interpretation Code Description Data Maura rce(s) Supporting Document(s) ID Date Data Source [id number] 06/29/2021 10:49:00 AM EDT [place] [address] Medication Administration Record [facility] Emergency Department [address] [place] [address] Phone #: ext [phone] 06/29/2021 10:46 Patient: CHANTALE SOLOMON A cct#: [id number] Sex: F : 1965 Age: 56yWeight: 77.1 kgHeight/Length: 60 inBMI: 33.2ALLERGIES: Penicillins, SeafoodDate/Time Medication Administered Medication Ordered Name Value Range Interpretation Code Description Data Maura rce(s) Supporting Document(s) ID Date Data Source [id number] 06/29/2021 10:49:00 AM EDT [facility] 1 General Instructions [facility] Emergency Department [address] [place] [address] Phone #: ext [phone] 06/29/2021 10:46 Patient: CHANTALE SOLOMON Sex: F : 1965 Age: 56yParoxysmal atrial fibrillation with uncontrolled rate.Moderate chronic anemia associated with cancer.INSTRUCTIONS(Take Cardizem in morning and Metoprolol at night. or vice versa. Do not take them both at the sametime.).Warnings: Further evaluation is necessary.GENERAL WARNINGS: Return or contact your physician immediately if your condition worsens orchanges unexpectedly, if not improving as expected, or if other problems arise.Your Current Medications: Your current home medications have been reviewed.STOP TAKING THE FOLLOWING MEDICATIONS:Furosemide Oral : 20 mg daily.CONTINUE TAKING THE FOLLOWING MEDICATIONS:Breo Ellipta Inhalation : 1 puff daily.dilTIAZem HCl Oral : 180 mg daily, at bedtime.Folic Acid Oral : Tablet 800 mcg, 1 tablet daily.Iron Oral : 45 mg daily.Magnesium Oral : 500 mg daily.Metoprolol Succinate ER Oral : 12.5 mg daily.Multaq Oral : Tablet 400 mg, 2x a day.Pantoprazole Sodium Oral : 40 mg daily.Potassium Oral : 10 meq 2x a day.Spiriva HandiHaler Inhalation : 2 puffs daily.Xarelto Oral : Tablet 10 mg, 1 tablet daily.Follow-up:Follow up with doctor in one week.Understanding of the discharge instructions verbalized by patient.Follow-up with: Osmel Alvarez MD, Cardiology, , [address] [place] [address], [facility] Follow up in three days. Call for an appointment. Reason for referral: evaluation. 2 General Instructions [facility] Emergency Department [address] [place] [address] Phone #: ext- [phone] 06/29/2021 10:46 Patient: CHANTALE SOLOMON Sex: F : 1965 Age: 56y(Electronically signed by Rory Gomez 06/29/2021 15:34) Name Value Range Interpretation Code Description Data Maura rce(s) Supporting Document(s) ID Date Data Source [id number] 06/29/2021 10:49:00 AM EDT [facility] 1 Clinical Report - Nurses [facility] Emergency Department [address] [place] [address] Phon e #: ext- [phone] 06/29/2021 10:46 Patient: CHANTALE SOLOMON Sex: F : 1965 Age: 56yTRIAGEArrived by private vehicle. Historian: patient. Unaccompanied. ( pt states that she is scheduled forablation in july for her atrial fib today 30 minutes ago she had palpatations and stated she was inatrial fib she does have a history of this has not been in er since april, wears 2 or 2 1/2 liters of oxygen athome, states she had been running a fever 99 and 101 was tested for covid and negative yesterday).Acuity: LEVEL 3.Chief Complaint: (p alpatations).Alert.This started today. Onset. 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 (0900).SEPSIS SCREEN: SEPSIS SCREEN NEGATIVE. No suspected or confirmed signs of infection present.--10:51 06/29/21 Orin Pierson R.N.10:47 06/29/21. BP: 83/74. MAP: 77. HR: 85. RR: 20. O2 saturation: 100% on nasal cannula at 3liters/minute. Temp: 98.9 F. Pain level now: 0/10. --10:51 06/29/21 Orin Pierson R.N.10:51 06/29/21. BP: 99/71. MAP: 80. --10:52 06/29/21 Orin Pierson R.N.Weight: 77.1 kg stated. Height/Length: 60 inches Per Patient. BMI: 33.2. --10:45 06/29/21 Orin Pierson R.N.MedicationsBreo Ellipta Inhalation 1 puff, daily. dilTIAZem HCl Oral 180 mg, daily at bedtime. Folic Acid Oral (Tablet 800 mcg) 1 tablet, daily. Furosemide Oral 20 mg, daily. Multaq Oral (Tablet 400 mg), 2x a day. Pantoprazole Sodium Oral 40 mg, daily. Potassium Oral 10 meq, 2x a day. Spiriva HandiHaler Inhalation 2 puffs, daily. Xarelto Oral (Tablet 10 mg) 1 tablet, daily. --10:52 06/29/21 Orin Pierson R.N. Magnesium Oral 500 mg, daily. Metoprolol Succinate ER Oral 12.5 mg, daily. --10:52 06/29/21 Yandel Mendes RN Iron Oral 45 mg, daily. --11:08 06/29/21 Yandel Mendes RNThe following entry was struck and corrected by Yandel Mendes RN, 11:07 (06/29/21) Reason for 2 Clinical Report - Nurses [facility] Emergency Department [address] [place] [address] Phone #: ext- [phone] 06/29/2021 10:46 Patient: CHANTALE SOLOMON Sex: F : 1965 Age: 56ycorrection - other(correction).Metoprolol Succinate ER Oral. --10:52 06/29/21 Orin Pierson R.N.The following entry was struck and corrected by Yandel Mendes RN, 11:06 (06/29/21) Reason forcorrection - other(correction).Magnesium Oral 1000mg , daily. --10:52 06/29/21 Orin Pierson R.N.The following entry was struck by Yandel Mendes RN, 11:06 (06/29/21) Reason - wrong value.Levaquin Oral. --10:52 06/29/21 Orin Pierson R.N. .AllergiesPenicillins.Seafood. --10:52 06/29/21 Orin Pierson R.N.PROBLEMS:Heart Disease.DVT - Deep Venous Thrombosis.Hypokalemia.Hypertension.COPD - Chronic Obstructive Pulmonary Disease.Anemia.Atrial Fibrillation.Back Injury.Chronic Back Pain.Cancer.Pulmona ry Embolism.Pneumonia.TIA - Transient Ischemic Attack.Spinal Fracture.Palpitations.Lower Extremity Pain.Intervertebral Disc Disease.Hypomagnesemia.Lung Cancer.Metabolic disease: (Bone). --10:52 06/29/21 Orin Pierson R.N.ADDITIONAL SURGERIES:Appendectomy.Back Surgery (Rods in t spine, crushed t7 t8).Dilatation Curettage.Foot surgery.Heel spur.Right heel spur.Septoplasty.Septoplasty.Tonsillectomy. 3 Clinical Report - Nurses [facility] Emergency Department [address] [place] [address] Phone #: ext- [phone] 06/29/2021 10:46 Patient: CHANTALE SOLOMON Sex: F : 1965 Age: 56y Tubal Ligation. --10:53 06/29/21 Orin Pierson R.N. History PAST MEDICAL HX: Immunizations: up-to-date. The patient is post-menopausal. SOCIAL HX: Smoker- current status unknown (quit 2018). Alcohol use. (quit 3 months ago). No drug use. She was offered HIV testing but declined. Hepatitis C testing offered to patient. She has not traveled outside the [place] Infectious disease exposure: No infectious disease exposure. The patient was not exposed to Coronavirus. Patient is not a known carrier of hepatitis, HIV, MRSA, VRE or CRE. SELF HARM ASSESSMENT: Self harm assessment was performed. The patient answered "no" to the question(s) "Have you recently felt down, depressed, or hopeless?" and "Do you have thoughts of harming or killing yourself?". ABUSE ASSESSMENT: Abuse assessment. Abuse denied. No suspicion of abuse. No report of abuse. NUTRITIONAL RISK ASSESSMENT: The nutritional risk assessment revealed no deficiencies. FUNCTIONAL ASSESSMENT: Functional assessment: no impairments noted. LEARNING NEEDS ASSESSMENT: The learning needs assessment revealed no barriers. FALL RISK ASSESSMENT: Fall risk assessment completed. No risk factors identified. SKIN INTEGRITY ASSESSMENT: Skin integrity risk assessment completed. No skin integri ty risk identified. --10:51 06/29/21 Orin Pierson R.N. FAMILY HX: Father: Diabetes Mellitus. --11:10 06/29/21 Rory Gomez. Interventions Identification band on patient. To treatment room. --10:51 06/29/21 Orin Pierson R.N. Allergy band on patient. --11:05 06/29/21 Yandel Mendes RN.PHYSICAL ASSESSMENTAmbulatory to room.GENERAL / NEURO / PSYCH: Alert. Oriented X 4. Appears in no acute distress. Appears anxious.HEENT: No facial asymmetry noted. Mucous membranes are pink.RESPIRATORY: Respirations not labored. Chest nontender. Breath sounds within normal limits.CVS: Normal sinus rhythm noted. Cardiac rhythm: atrial fibrillation; (1035). Capillary refill less than 2seconds. Pulses within normal limits.GI / : Abdomen soft and nontender and normal bowel sounds.SKIN: Skin is warm and dry. --11:04 06/29/21 Yandel Mendes RN. 4 Clinical Report - Nurses [facility] Emergency Department [address] [place] [address] Phone #: ext- [phone] 06/29/2021 10:46 Patient: CHANTALE SOLOMON Sex: F : 1965 Age: 56yNURSING PROGRESS NOTES10:45 06/29/2021 Site #1 started via IV in the right forearm with an 20g angiocath; one attempt. Blooddrawn: Lailaihui set and blood bank tube. Labeled in the presence of the patient and sent to the lab. [place] flushed with 10 mL saline. --11:03 06/29/21 Yandel Mendes RN Cardiac rhythm: atrial fibrillation; (1035). Oxygen administered by nasal cannula at 3 liters (1035). radiation physicist, NIBP monitor and pulse oximeter placed on patient; paper control clerk- Lead II; monitor alarms on; monitor strip added to paper chart. EKG time: (10:35 06/29/2021). EKG was performed by a nurse and shown to the ED physician. A Fib. Checked patient name and birthdate. Blood samples drawn from the right forearm peripheral IV site by nurse per protocol ; labeled in presence of the patient and sent to lab: Lailaihui set. Initial blood discarded. (1045). Patient gowned. Head of bed elevated 75 degrees. Two patient identifiers checked. Call light placed in reach. Bed placed in lowest position. Brakes of bed on. Patient ready for evaluation- ED physician notified. --11:03 06/29/21 Yandel Mendes RN Portable chest x-ray completed. Shown to the ED physician (1110). --11:35 06/29/21 Yandel Mendes RN 11:00 06/29/21. BP: 92/61. MAP: 71. HR: 85. O2 saturation: 100% on room air. --12:04 06/29/21 Yandel Mendes RN 11:30 06/29/21. BP: 101/67. MAP: 78. HR: 69. O2 saturation: 100% on room air. --12:04 06/29/21 Yandel Mendes RN 12:01 06/29/21. BP: 98/60. MAP: 72. HR: 61. O2 saturation: 100% on room air. --12:05 06/29/21 Yandel Mendes RN ( [id number] Dr Gomez in to reassess pt and matthew be contacting Dr Alvarez). --13:41 06/29/21 Yandel Mendes RN 12:30 06/29/21. BP: 97/71. MAP: 79. HR: 61. O2 saturation: 100% on room air. --13:44 06/29/21 Yandel Mendes RN 13:00 06/29/21. BP: 97/78. MAP: 84. HR: 72. O2 saturation: 100% on nasal cannula at 3 liters/minute. --13 :44 06/29/21 Yandel Mendes RN 13:30 06/29/21. BP: 88/59. MAP: 68. HR: 80. O2 saturation: 100% on nasal cannula at 3 liters/minute. --13:45 06/29/21 Yandel Mendes RN ( 1350 CM change from a fib to NSR at80 bpm, ekg repeated, M D in with pt). --14:02 06/29/21 Yandel Mendes RN 13:50 06/29/21. BP: 93/58. MAP: 69. HR: 80. RR: 18. O2 saturation: 100% on nasal cannula at 3 liters/minute. Pain level now: 0/10. --14:02 06/29/21 Yandel Mendes RN ( [address] Ruiz in to see pt). --14:09 06/29/21 Yandel Mendes RN. 5 Clinical Report - Nurses [facility] Emergency Department [address] [place] [address] Phone #: ext- [phone] 06/29/2021 10:46 Patient: CHANTALE SOLOMON Sex: F : 1965 Age: 56yDISPOSITION / DISCHARGE 14:43 06/29/21. Condition at departure: improved. No learning barriers present. Discharge instructions provided and reviewed with the patient. Reviewed medication(s) (no new med). Reviewed referral to a faith doctor. Patient verbalized understanding. Written instructions provided in Lithuanian. The patient was discharged by the physician. She was discharged home. She left ambulatory and via private vehicle. Patient driving. --14:43 06/29/21 Yandel Mendes RN 14:30 06/29/21. BP: 99/61. MAP: 73. HR: 79. RR: 20. O2 saturation: 100% on nasal cannula at 3 liters/minute. Temp: 98.9 F (oral). Pain level now: 0/10. --14:43 06/29/21 Yandel Mendes RN Departure time: 14:43 06/29/2021. --14:43 06/29/21 Yandel Mendes RN 14:33 06/29/2021 Site #1 removed upon discharge. Catheter intact. Bandaid applied. --14:43 06/29/21 Yandel Mendes RN.Locked/Released at 06/29/2021 16:50 by Yandel Mendes RN Name Value Range Interpretation Code Description Data Maura rce(s) Supporting Document(s) ID Date Data Source [id number] 06/29/2021 10:49:00 AM EDT [facility] 1 Clinical Report - Physicians/Mid Levels [facility] Emergency Department [address] [place] [address] Phone #: ext- [phone] 06/29/2021 10:46 Patient: CHANTALE SOLOMON Sex: F : 1965 Age: 56y Time Seen: 10:57 06/29/2021. Arrived- By private vehicle. Historian- patient.HISTORY OF PRESENT ILLNESS Chief Complaint: PALPITATIONS. This started just prior to arrival and is still present. (sitting down and eating). Onset during rest. It was abrupt in onset and has been constant. It is described as a fast heart beat and an irregular heart beat. Modifying factors. Not worsened by anything. No chest pain or discomfort, difficulty breathing, dizziness or tingling. No muscle spasms. ( Similar episode of atrial fibrillation. Patient has been light-headed but it is due to low blood pressure from her medications. Heart rate was 150 bpm at home). Similar symptoms previously. Patient has had similar symptoms many times. Recent medical care: The patient was seen recently by a health care provider.REVIEW OF SYSTEMSNo chills, cough, orthopnea, enlarged lymph nodes or headache. No sore throat, nausea, skin rash,depression or trouble sleeping. No vomiting, diarrhea, bloody stools, fatigue or cough. No vomiting orfainting episodes. The patient has had dizziness. All other systems reviewed and are negative.PAST HISTORYSee nurses notes. Atrial fibrillation. Congestive heart failure. Lung disease. Problems: DVT - Deep Venous Thrombosis. COPD - Chronic Obstructive Pulmonary Disease. Anemia. Chronic Back Pain. Pulmonary Embolism. TIA - Transient Ischemic Attack. Intervertebral Disc Disease. Hypomagnesemia. Lung Cancer. Metabolic disease. (Bone). Additional Surgeries: Appendectomy. Back Surgery. (Rods in t spine, crushed t7 t8) Dilatation Curettage. Foot surgery. Heel spur. 2 Clinical Report - Physicians/Mid Levels [facility] Emergency Department [address] [place] [address] Phone #: ext- [phone] 06/29/2021 10:46 Patient: CHANTALE SOLOMON [facility]#: [id number] Sex: F : 1965 Age: 56y Right heel spur. Septoplasty. Septoplasty. Tonsillectomy. Tubal Ligation. Medications: Iron Oral 45 mg, daily. Breo Ellipta Inhalation 1 puff, daily. dilTIAZem HCl Oral 180 mg, daily at bedtime. Folic Acid Oral (Tablet 800 mcg) 1 tablet, daily. Furosemide Oral 20 mg, daily. Magnesium Oral 500 mg, daily. Metoprolol Succinate ER Oral 12.5 mg, daily. Multaq Oral (Tablet 400 mg), 2x a day. Pantoprazole Sodium Oral 40 mg, daily. Potassium Oral 10 meq, 2x a day. Spiriva HandiHaler Inhalation 2 puffs, daily. Xarelto Oral (Tablet 10 mg) 1 t ablet, daily. Allergies: Penicillins. Seafood.SOCIAL HISTORYFormer smoker.FAMILY HISTORYFather: Diabetes Mellitus.ADDITIONAL NOTESThe nursing notes have been reviewed.PHYSICAL EXAMVital Signs: 06/29/2021 10:51 BP: 99/71. MAP: 80.06/29/2021 10:47 BP: 83/74. MAP: 77. HR: 85. RR: 20. O2 saturation: 100% on nasal cannula at 3liters/minute. Temp: 98.9 F. Pain level now: 0/10.Appearance: Alert. Oriented X3. No acute distress.Eyes: Pupils equal, round and reactive to light. Eyes normal inspection.ENT: Ears normal. Nose normal. Pharynx normal.Neck: Normal inspection. Neck supple.CVS: Abnormal rhythm. 3/6 systolic murmur. Pulses normal.Respiratory: No respiratory distress. Chest tender. Painless inspiration. Breath sounds normal.Abdomen: Soft and nontender. No organomegaly.Back: Normal external inspection. 3 Clinical Report - Physicians/Mid Levels [facility] Emergency Department [address] [place] [address] Phone #: ext- [phone] 06/29/2021 10:46 Patient: CHANTALE SOLOMON Sex: F : 1965 Age: 56y Skin: Skin warm and dry. Normal skin color. No rash. Normal skin turgor. Extremities: Mild edema of the left lower extremity involving the foot and ankle. Extremities exhibit normal ROM. Neuro: Oriented X 3. No motor deficit. No sensory deficit.LABS, X-RAYS, AND EKGEKG: EKG time: 10:35 06/29/2021. Rate: 100. Normal axis. Normal QT. Non-specific ST segment / Twave abnormalities. The study has been interpreted contemporaneously by me. Interpr etation time:10:43 06/29/2021.EKG #2: EKG time: 13:46 06/29/2021. Normal sinus rhythm. Rate: 80. Normal KATIE. Normal axis.Non-specific ST segment / T wave abnormalities. No ST elevation. The study has been interpretedcontemporaneously by me. Interpretation time: 13:52 06/29/2021.Laboratory Tests: CBC w Diff: (SARAH: 06/29/2021 10:55) ( MsgRcvd 06/29/2021 11:32) Final results Test Result Flag Units (Reference) CBC W/AUTOMATED DIFF COMPLETE BLOOD COUNT WBC 5.1 10/uL (4.2 - 11.0) RBC 2.37 L 10/uL (4.20 - 5.40) HEMOGLOBIN 8.3 L g/dL (12.0 - 16.0) HEMATOCRIT 25.1 L % (37.0 - 47.0) MCV 105.9 H fL (81.0 - 101) MCH 35.0 H pg (27.0 - 34.0) MCHC 33.1 g/dL (31.0 - 36.0) RDW 15.7 H % (11.5 - 14.5) PLATELETS 119 L 10/uL (150 - 450) MPV 9.8 fL (7.4 - 10.4) NEUT 76.6 % (37.0 - 80.0) LYMPH 6.6 L % (25.0 - 40.0) MONO 12.1 H % (3.0 - 8.0) EOS 3.3 % (0.0 - 7.0) BASO 0.4 % (0.0 - 2.5) %IG 1.0 H % (0.0 - 0.0) %NRBC 0.0 % (0.0 - 0.0) #NEUT 3.92 10/uL (2.00 - 6.90) #LYMPH 0.34 L 10/uL (0.60 - 3.40) #MONO 0.62 10/uL (0.00 - 0.90) #EOS 0.17 10/uL (0.00 - 0.70) #BASO 0.02 10/uL (0.00 - 0.20) #IG 0.05 10/uL (0.00 - 0.10) #NRBC 0.00 10/uL (0.00 - 0.00) MANUAL DIFF SEE BELOW SEGS 83 H % (37 - 80) %LYMPH 10 L % (25 - 40) %MONO 5 % (3 - 8) %EOS 2 % (0 - 7) RBC MORPH SEE BELOW ANISO 1+ A (NORMAL: NONE MACRO 1+ A (NORMAL: NONE POIK 1+ A (NORMAL: NONE { SICKLE CELL (NORMAL: NONE SEEN ) OVALOCYTES 1+ A (NORMAL: NONE HYPER NEUT 2+ A (NORMAL: NONE PLT EST DECREASED A (NORMAL: SHAUNA 4 Clinical Report - Physicians/[facility] Emergency Department [address] [place] [address] Phone #: ext- [phone] 06/29/2021 10:46 Patient: CHANTALE SOLOMON Sex: F : 1965 Age: 56y COMMENT: BNP: (SARAH: 06/29/2021 10:55) ( MsgRcvd 06/29/2021 11:49) Final results Test Result Flag Units (Reference) BNP 1636 H PG/ML (0 - 125)CMP: (SARAH: 06/29/2021 10:55) ( MsgRcvd 06/29/2021 11:51) Final results Test Result Flag Units (Reference) COMPREHENSIVE METABOLIC PANEL COMPREHENSIVE METABOLIC PANEL SODIUM 136 mEq/L (134 - 153) POTASSIUM 3.7 mEq/L (3.6 - 5.0) CHLORIDE 99 mEq/L (98 - 107) CO2 26 MEQ/L (22 - 30) GLUCOSE 163 H MG/DL (70 - 99) BUN 16 MG/DL (7 - 21) CREATININE 1.4 MG/DL (0.7 - 1.5) BUN/CREAT 11 (8 - 27) TOTAL PROTEIN 5.7 L G/DL (6.3 - 8.2) ALBUMIN 3.5 L G/DL (3.9 - 5.0) GLOBULIN 2.2 L GM/DL (2.4 - 3.2) A/G RATIO 1.6 (0.8 - 2.0) CALCIUM 8.5 MG/DL (8.4 - 10.2) TOTAL BILI <0.7 MG/DL (0.2 - 1.3) ALKALINE PHOS 104 U/L (38 - 126) SGOT/AST 26 U/L (5 - 40) SGPT/ALT 17 U/L (7 - 56) ANION GAP 11.0 mmol/L (8.0 - 16.0) AGE 56 yrs NON-AA GFR 41 mL/min AFR AMER GFR 50 mL/min Male GFR Interprentation 20-49 yrs >60 mL/min Qhomax11-82 yrs >56 mL/min Normal 60-69 yrs >49 mL/min Normal 70-79yrs>42 mL/min Normal 80 and above >35 mL/min Normal Female GFRInterpretation 20-39 yrs >60 mL/min Normal 40-49 yrs >58 mL/minNormal 50-59 yrs >51 mL/min Normal 60-69 yrs >45 mL/min Wgxgqw70-57 yrs >39 mL/min Normal 80 and above >32 mL/min NormalTroponin-T: (SARAH: 06/29/2021 10:55) ( MsgRcvd 06/29/2021 12:14) Final results Test Result Flag Units (Reference) TROPONIN T 0.03 NG/ML (0.00 - 0.10) TROPONIN T0.1 ng/ml Recommended as the clinical threshold value forTroponin T.Magnesium: (SARAH: 06/29/2021 10:55) ( [facility] 06/29/2021 11:51) Final results Test Result Flag Units (Reference) MAGNESIUM 1.9 MG/DL (1.7 - 2.2)Chest Portable 1 View: (SARAH: 06/29/2021 10:59) ( [facility] 06/29/2021 12:56) Final resultsCHEST PORTABLEReason(s): CHFTRANSPORTATION: P IV? O2? Oxygen?(No) Room: ED 5 Clinical Report - Physicians/Mid Levels [facility] Emergency Department [address] [place] [address] Phone #: ext- [phone] 06/29/2021 10:46 -------- Patient: CHANTALE SOLOMON Sex: F : 1965 Age: 56y [place] [address] PHONE: [phone] FAX: [phone] Name .................. : JUANITO Daniels Acct Number.................. : [id number] ROOM. ................. : TR-07 MR Number ................... : [id number] Stay type ............. : E/R Discharge Date......... ... : Admit Date ......... : 06/29/21 Admit Phys .................... : BRENDA Stoddard Date of ....... : 1965 Family Phys ................... : SEQUEIRA Phone .................. : [phone] Age ................................ : 56 Film# .................. .:[id number] Sex ................................. : F Unsigned transcriptions are preliminary reports and do not represent a medical or legal document CHEST PORTABLE [id number] COMPLETE:06/29/21 10:59 Reason(s): CHF PORTABLE CHEST SINGLE VIEW 11:15 AM HISTORY: Congestive heart failure COMPARISON: Multiple prior chest x-rays most recent 05/01/2021. CT chest 05/01/2021, 12/20/2020 FINDINGS: Again visualized is near complete opacification of the left upper lobe with a small amount of the left lung apex still aerated. Left lower lobe remains aerated. Mediastinum is shifted to left and left diaphragm is elevated indicating volume loss. This is unchanged. Right lung is clear. No right effusion. Pulmonary vessels are within normal limits. Heart size is difficult to assess given the left lung disease silhouetting the heart margin. Thoracic paraspinal rods. There is a right internal jugular Port-A-Cath present with tip projected over the SVC. Unchanged. IMPRESSION: 1. Extensive volume loss and opacification in the left upper lobe, unchanged compared to multiple prior studies. 2. No congest angie heart failure. Electronically Reviewed and Signed By John Ya MD , 06/29/21 12:41, [place] Transcribe Initials: DZ , Transcribe Date: 06/29/21 12:11, Dictation Date: 2 [place] [address] 6 Clinical Report - Physicians/Mid Levels [facility] Emergency Department [address] [place] [address] Phone #: ext- [phone] 06/29/2021 10:46 Patient: CHANTALE SOLOMON Sex: F : 1965 Age: 56y PHONE: [phone] FAX: [phone] Name .................. : JUANITO Daniels Acct Number.................. : [id number] ROOM. ................. : TR-07 MR Number ................... : [id number] Stay type ............. : E/R Discharge Date......... ... : Admit Date ......... : 06/29/21 Admit Phys .... ................ : BRENDA Stoddard Date of ....... : 1965 Family Phys ................... : SEQUEIRA Phone .................. : [phone] Age ................................ : 56 Film# .................. .:[id number] Sex ................................. : F Unsigned transcriptions are preliminary reports and do not represent a medical or legal document CHEST PORTABLE [id number] COMPLETE:06/29/21 10:59 Reason(s): CHF Copy for: 010 EMERGENCY SRV Copy for: EMERGENCY DEPT via modem Copy for: 710 MED REC Page 2 of 2.PROGRESS AND PROCEDURESCourse of Care: 11:12 06/29/21. Multiple trips to ED and hospitalization for atrial fibrillation. No acuterespiratory distress. No acute ischemic changes on EKG 12:25 06/29/21. Pulse of 70 bpm in atrial fibrillation. BP of 101/70 case discussed with Kim's service 14:06 06/29/21. Patient spontaneous converted to sinus rhythm. blood pressure unchanged. Patient denies any further palpitations. Her hypotension most likely due to taking cardizem and metoprolol together. She is instructed to take them 12 hours apart. Old medical records ordered. Disposition: Discharged. Condition: stable.CLINICAL IMPRESSION Paroxysmal atrial fibrillation with uncontrolled rate. Moderate chronic anemia associated with cancer. 7 Clinical Report - Physicians/Mid Levels [facility] Emergency Department [address] [place] [address] Phone #: ext- [phone] 06/29/2021 10:46 Patient: CHANTALE SOLOMON Sex: F : 1965 Age: 56yINSTRUCTIONS (Take Cardizem in morning and Metoprolol at night. or vice versa . Do not take them both at the same time.). Warnings: Further evaluation is necessary. GENERAL WARNINGS: Return or contact your physician immediately if your condition worsens or changes unexpectedly, if not improving as expected, or if other problems arise. Your Current Medications: Your current home medications have been reviewed. STOP TAKING THE FOLLOWING MEDICATIONS: Furosemide Oral : 20 mg daily. CONTINUE TAKING THE FOLLOWING MEDICATIONS: Breo Ellipta Inhalation : 1 puff daily. dilTIAZem HCl Oral : 180 mg daily, at bedtime. Folic Acid Oral : Tablet 800 mcg, 1 tablet daily. Iron Oral : 45 mg daily. Magnesium Oral : 500 mg daily. Metoprolol Succinate ER Oral : 12.5 mg daily. Multaq Oral : Tablet 400 mg, 2x a day. Pantoprazole Sodium Oral : 40 mg daily. Potassium Oral : 10 meq 2x a day. Spiriva HandiHaler Inhalation : 2 puffs daily. Xarelto Oral : Tablet 10 mg, 1 tablet daily. Follow-up: Follow up with doctor in one week. Understanding of the discharge instructions verbalized by patient. Follow-up with: Osmel Alvarez MD, Cardiology, , [address] [place] [address], [id number] Follow up in three days. Call for an appointment. Reason for referral: evaluation.(Electronically signed by Rory Gomez 06/29/2021 15:34) Name Value Range Interpretation Code Description Data Maura rce(s) Supporting Document(s) ID Date Data Source [id number] 06/29/2021 12:41:00 [place] [address] PHONE: [phone] FAX: [phone] Name .................. : JUANITO ROMAN Jeremiah Acct Number.................. : [id number] ROOM. ................. : TR-07 MR Number ................... : [id number] Stay type ............. : E/R Discharge Date......... ... : Admit Date ......... : 06/29/21 Admit Phys .................... : BRENDA Stoddard Date of ....... : 1965 Family Phys ................... : SEQUEIRA Phone .................. : [phone] Age ................................ : 56 Film# .................. .:[id number] Sex ................................. : F Unsigned transcriptions are preliminary reports and do not represent a medical or legal document CHEST PORTABLE [id number] COMPLETE:06/29/21 10:59 Reason(s): CHF PORTABLE CHEST SINGLE VIEW 11:15 AM HISTORY: Congestive heart failure COMPARISON: Multiple prior chest x-rays most recent 05/01/2021. CT chest 05/01/2021, 12/20/2020 FINDINGS: Again visualized is near complete opacification of the left upper lobe with a small amount of the left lung apex still aerated. Left lower lobe remains aerated. Mediastinum is shifted to left and left diaphragm is elevated indicating volume loss. This is unchanged. Right lung is clear. No right effusion. Pulmonary vessels are within normal limits. Heart size is difficult to assess given the left lung disease silhouetting the heart margin. Thoracic paraspinal rods. There is a right internal jugular Port-A-Cath present with tip projected over the SVC. Unchanged. IMPRESSION: 1. Extensive volume loss and opacification in the left upper lobe, unchanged compared to multiple prior studies. 2. No congestive heart failure. Electronically Reviewed and Signed By John Ya MD , 06/29/21 12:41, JWWalter Transcribe Initials: REYES , Transcribe Date: 06/29/21 12:11, Dictation Date: Page 1 of 2 [facility] [address] [place] [address]. [place] [address] PHONE: [phone] FAX: [phone] Name .................. : JUANITO Daniels Acct Number.................. : [id number] ROOM. ................. : TR-07 MR Number ................... : [id number] Stay type ............. : E/R Discharge Date......... ... : Admit Date ......... : 06/29/21 Admit Phys .................... : BRENDA Stoddard Date of ....... : 1965 Family Phys ................... : SEQUEIRA Phone .................. : [phone] Age ................................ : 56 Film# .................. .:[id number] Sex ................................. : F Unsigned transcriptions are preliminary reports and do not represent a medical or legal document CHEST PORTABLE [id number] COMPLETE:06/29/21 10:59 Reason(s): CHF Copy for: 010 EMERGENCY SRV Copy for: EMERGENCY DEPT via modem Copy for: 710 MED REC Page 2 of 2 Name Value Range Interpretation Code Description Data Maura rce(s) Supporting Document(s) ID Date Data Source [id number] 06/29/2021 12:13:00 PM EDT [facility] Name Value Range Interpretation Code Description Data Maura rce(s) Supporting Document(s) TROPONIN T 0.03 NG/ML 0.00 - 0.10 [facility] spital TROPONIN T0.1 ng/ml Recommended as the c linical threshold value forTroponin T. ID Date Data Source [id number] 06/29/2021 11:51:00 AM EDT [facility] Name Value Range Interpretation Code Description Data Maura e(s) Supporting Document(s) Magnesium [Mass/volume] in Serum or Plasma 1.9 MG/DL 1.7 - 2.2 [facility] ID Date Data Source [id number] 06/29/2021 11:51:00 AM EDT [facility] Name Value Range Interpretation Code Description Data [facility](s) Supporting Document(s) COMPREHENSIVE METABOLIC PANEL [facility] COMPREHENSIVE METABOLIC PANEL Sodium [Moles/volume] in Serum or Plasma 136 mEq/L 134 - 153 [facility] Potassium [Moles/volume] in Serum or Plasma 3.7 mEq/L 3.6 - 5.0 [facility] Chloride [Moles/volume] in Serum or Plasma 99 mEq/L 98 - 107 [facility] Carbon dioxide, total [Moles/volume] in Serum or Plasma 26 MEQ/L 22 - 30 [facility] Glucose [Mass/volume] in Serum or Plasma 163 MG/DL 70 - 99 H [facility] BUN 16 MG/DL 7 - 21 [facility] al Creatinine [Mass/volume] in Serum or Plasma 1.4 MG/DL 0.7 - 1.5 [facility] BUN/CREAT 11 8 - 27 [facility] Protein [Mass/volume] in Serum or Plasma 5.7 G/DL 6.3 - 8.2 L [facility] Albumin [Mass/volume] in Serum or Plasma 3.5 G/DL 3.9 - 5.0 L [facility] Globulin [Mass/volume] in Serum by calculation 2.2 GM/DL 2.4 - 3.2 L [facility] A/G RATIO 1.6 0.8 - 2.0 [facility] Calcium [Mass/volume] in Serum or Plasma 8.5 MG/DL 8.4 - 10.2 [facility] Bilirubin.total [Mass/volume] in Serum or Plasma <0.7 MG/DL 0.2 - 1.3 [facility] Alkaline phosphatase [Enzymatic activity/volume] in Serum or Plasma 104 U/L 38 - 126 [facility] Aspartate aminotransferase [Enzymatic activity/volume] in Serum or Plasma 26 U/L 5 - 40 [facility] Alanine aminotransferase [Enzymatic activity/volume] in Seru m or Plasma 17 U/L 7 - 56 [facility] Anion gap 3 in Serum or Plasma 11.0 mmol/L 8.0 - 16.0 [facility] AGE 56 yrs [facility] NON-AA GFR 41 mL/min [facility] willy AFR AMER GFR 50 mL/min [facility] Male GFR In [...] >32 mL/min Normal ID Date Data Source [id number] 06/29/2021 11:49:00 AM [facility] Name Value Range Interpretation Code Description Data Maura rce(s) Supporting Document(s) BNP 1636 PG/ML 0 - 125 H [facility] ID Date Data Source [id number] 06/29/2021 11:30:00 AM [facility] Name Value Range Interpretation Code Description Data Maura rce(s) Supporting Document(s) CBC W/AUTOMATED DIFF [facility] COMPLETE BLOOD COUNT Leukocytes [#/volume] in Blood by Automated count 5.1 10^3/uL 4.2 - 1 1.0 [facility] Erythrocytes [#/volume] in Blood by Automated count 2.37 10^6/uL 4. 20 - 5.40 L [facility] Hemoglobin [Mass/volume] in Blood 8.3 g/dL 12.0 - 16.0 L [facility] Hematocrit [Volume Fraction] of Blood by Automated count 25.1 % 3 7.0 - 47.0 L [facility] Erythrocyte mean corpuscular volume [Entitic volume] b y Automated count 105.9 fL 81.0 - 101 H [facility] Erythrocyte mean corpuscular hemoglobin [Entitic mass] by Automated count 35.0 pg 27.0 - 34.0 H [facility] Erythrocyte mean corpuscular hemoglobin concentration [Mass/volume] by Automated count 33.1 g/dL 31.0 - 36.0 [facility] Erythrocyte distribution width [Ratio] by Automated count 15.7 % 11.5 - 14.5 H [facility] Platelets [#/volume] in Blood by Automated count 119 10^3/uL 150 - 45 0 L [facility] Platelet mean volume [Entitic volume] in Blood by Automated count 9.8 fL 7.4 - 10.4 [facility] Neutrophils/100 leukocytes in Blood by Automated count 76.6 % 37. 0 - 80.0 [facility] Lymphocytes/100 leukocytes in Blood by Manual count 6.6 % 25.0 - 40.0 L [facility] Monocytes/100 leukocytes in Blood by Automated count 12.1 % 3.0 - 8.0 H [facility] Eosinophils/100 leukocytes in Blood by Automated count 3.3 % 0.0 - 7.0 [facility] Basophils/100 leukocytes in Blood by Automated count 0.4 % 0.0 - 2.5 [facility] %IG 1.0 % 0.0 - 0.0 H [facility] al %NRBC 0.0 % 0.0 - 0.0 [facility] al Neutrophils [#/volume] in Blood by Automated count 3.92 10^3/uL 2.00 - 6.90 [facility] Lymphocytes [#/volume] in Blood by Automated count 0.34 10^3/uL 0.60 - 3.40 L [facility] Monocytes [#/volume] in Blood by Automated count 0.62 10^3/uL 0.00 - 0.90 [facility] Eosinophils [#/volume] in Blood by Automated count 0.17 10^3/uL 0.00 - 0.70 [facility] Basophils [#/volume] in Blood by Automated count 0.02 10^3/uL 0.00 - 0.20 [facility] #IG 0.05 10^3/uL 0.00 - 0.10 [facility] #NRBC 0.00 10^3/uL 0.00 - 0.00 [facility] MANUAL DIFF SEE BELOW [facility] ital Segmented neutrophils/100 leukocytes in Blood by Manual count 83 % 37 - 80 H [facility] %LYMPH 10 % 25 - 40 L [facility] %MONO 5 % 3 - 8 [facility] %EOS 2 % 0 - 7 [facility] RBC [facility]ORPH [facility] Anisocytosis [Presence] in Blood by Light microscopy 1+ SHAUNA L: NONE SEEN A [facility] Macrocytes [Presence] in Blood by Light microscopy 1+ NORMAL: NONE SEEN A [facility] Poikilocytosis [Presence] in Blood by Light microscopy 1+ NOR MAL: NONE SEEN A [facility] { SICKLE CELL (NORMAL: NONE SEEN ) Ovalocytes [Presence] in Blood by Light microscopy 1+ NORMAL: NONE SEEN A [facility] Neutrophils.hypersegmented [Presence] in Blood by Light micr oscopy 2+ NORMAL: NONE SEEN A [facility] Platelet adequacy [Presence] in Blood by Light microscopy DE CREASED NORMAL: NORMAL A [facility] COMMENT: ID Date Data Source [id number] 06/28/2021 12:00:00 AM EDT [facility] Name Value Range Interpretation Code Description Data Maura rce(s) Supporting Document(s) SARS-CoV2 Rapid Antigen Negative [facility] This lab was reported by [facility]. ID Date Data Source [id number] 11/10/2020 12:00:00 AM EST [facility] Name Value Range Interpretation Code Description Data Maura rce(s) Supporting Document(s) SARS coronavirus 2 Ag Negative [facility] This lab was ordered by [facility] and reported by [facility]. ID Date Data Source [id number] 06/20/2021 08:00:00 AM EDT [facility] ([facility], ) Name Value Range Interpretation Code Description Data Maura rce(s) Supporting Document(s) Gram Stain Laboratory test result Normal (applies to non-n umeric results) [facility] ([facility], ) FEW WBCS NO ORGANISMS SEEN Bal Culture Laboratory test result Normal (applies to non- numeric results) [facility] ([facility], ) FULL REPORT IN LAB NOTES ([facility] and [facility] ). NO GROWTH AEROBICALLY ID Date Data Source [id number] 06/15/2021 01:30:00 PM EDT [facility] Name Value Range Interpretation Code Description Data Maura rce(s) Supporting Document(s) SARS-CoV-2 (COVID-19) RNA [Presence] in Respiratory specimen by DAR with probe detection Not Detected [facility] This lab was ordered by [facility] and reported by [facility]. ID Date Data Source [id number] 06/11/2021 10:20:00 AM EDT [facility] Name Value Range Interpretation Code Description Data Maura rce(s) Supporting Document(s) Thyroxine (T4) free index in Serum or Plasma by calculation 1.16 NG/DL 0.93 - 1.70 [facility] ID Date Data Source [id number] 06/11/2021 10:20:00 AM EDT [facility] Name Value Range Interpretation Code Description Data Maura rce(s) Supporting Document(s) Thyrotropin [Units/volume] in Serum or Plasma by Detec tion limit <= 0.05 mIU/L 2.07 uIU/mL 0.47 - 5.01 [facility] ID Date Data Source [id number] 06/11/2021 10:05:00 AM EDT [facility] Name Value Range Interpretation Code Description Data Maura rce(s) Supporting Document(s) BASIC METABOLIC PANEL [facility] BASIC METABOLIC PANEL Sodium [Moles/volume] in Serum or Plasma 139 mEq/L 134 - 153 [facility] Potassium [Moles/volume] in Serum or Plasma 4.3 mEq/L 3.6 - 5.0 [facility] Chloride [Moles/volume] in Serum or Plasma 100 mEq/L 98 - 107 [facility] Carbon dioxide, total [Moles/volume] in Serum or Plasma 28 MEQ/L 22 - 30 [facility] Glucose [Mass/volume] in Serum or Plasma 88 MG/DL 70 - 99 [facility] BUN 12 MG/DL 7 - 21 [facility] Creatinine [Mass/volume] in Serum or Plasma 1.4 MG/DL 0.7 - 1.5 [facility] BUN/CREAT 9 8 - 27 [facility] Calcium [Mass/volume] in Serum or Plasma 8.5 MG/DL 8.4 - 10.2 [facility] Anion gap 3 in Serum or Plasma 11.0 mmol/L 8.0 - 16.0 [facility] AGE 56 yrs [facility] AFR AMER GFR 50 mL/min [facility] NON-AA GFR 41 mL/min [facility] Male G[facility] Inter prentation 20-49 yrs >60 [...] >32 mL/min Normal ID Date Data Source [id number] 06/11/2021 09:51:00 AM EDT [facility] Name Value Range Interpretation Code Description Data Maura rce(s) Supporting Document(s) CBC W/AUTOMATED DIFF [facility] COMPLETE BLOOD COUNT Leukocytes [#/volume] in Blood by Automated count 5.0 10^3/uL 4.2 - 1 1.0 [facility] Erythrocytes [#/volume] in Blood by Automated count 2.53 10^6/uL 4. 20 - 5.40 L [facility] Hemoglobin [Mass/volume] in Blood 8.7 g/dL 12.0 - 16.0 L [facility] Hematocrit [Volume Fraction] of Blood by Automated count 26.3 % 3 7.0 - 47.0 L [facility] Erythrocyte mean corpuscular volume [Entitic volume] b y Automated count 104.0 fL 81.0 - 101 H [facility] Erythrocyte mean corpuscular hemoglobin [Entitic mass] by Automated count 34.4 pg 27.0 - 34.0 H [facility] Erythrocyte mean corpuscular hemoglobin concentration [Mass/volume] by Automated count 33.1 g/dL 31.0 - 36.0 [facility] Erythrocyte distribution width [Ratio] by Automated count 16.0 % 11.5 - 14.5 H [facility] Platelets [#/volume] in Blood by Automated count 215 10^3/uL 150 - 45 0 [facility] Platelet mean volume [Entitic volume] in Blood by Automated count 9.3 fL 7.4 - 10.4 [facility] Neutrophils/100 leukocytes in Blood by Automated count 54.7 % 37. 0 - 80.0 [facility] Lymphocytes/100 leukocytes in Blood by Manual count 12.3 % 25.0 - 40.0 L [facility] Monocytes/100 leukocytes in Blood by Automated count 28.8 % 3.0 - 8.0 H [facility] Eosinophils/100 leukocytes in Blood by Automated count 2.8 % 0.0 - 7.0 [facility] Basophils/100 leukocytes in Blood by Automated count 0.4 % 0.0 - 2.5 [facility] %IG 1.0 % 0.0 - 0.0 [facility] %NRBC 0.0 % 0.0 - 0.0 [facility] Neutrophils [#/volume] in Blood by Automated count 2.75 10^3/uL 2.00 - 6.90 [facility] Lymphocytes [#/volume] in Blood by Automated count 0.62 10^3/uL 0.60 - 3.40 [facility] Monocytes [#/volume] in Blood by Automated count 1.45 10^3/uL 0.00 - 0.90 H [facility] Eosinophils [#/volume] in Blood by Automated count 0.14 10^3/uL 0.00 - 0.70 [facility] Basophils [#/volume] in Blood by Automated count 0.02 10^3/uL 0.00 - 0.20 [facility] #IG 0.05 10^3/uL 0.00 - 0.10 [facility] #NRBC 0.00 10^3/uL 0.00 - 0.00 [facility] MANUAL DIFF SEE BELOW [facility] ital Segmented neutrophils/100 leukocytes in Blood by Manual count 58 % 37 - 80 [facility] %LYMPH 10 % 25 - 40 L [facility] al %MONO 28 % 3 - 8 H [facility] al %EOS 3 % 0 - 7 [facility] al Metamyelocytes/100 leukocytes in Blood by Manual count 1 % [facility] RBC MORPH SEE BELOW [facility] al Anisocytosis [Presence] in Blood by Light microscopy 2+ SHAUNA L: NONE SEEN A [facility] Macrocytes [Presence] in Blood by Light microscopy 2+ NORMAL: NONE SEEN A [facility] HYPO 2+ NORMAL: NONE SEEN A [facility] Polychromasia [Presence] in Blood by Light microscopy 1+ NORM AL: NONE SEEN A [facility] { SICKLE CELL (NORMAL: NONE SEEN ) Neutrophils.hypersegmented [Presence] in Blood by Light micr oscopy 1+ NORMAL: NONE SEEN A [facility] Platelet adequacy [Presence] in Blood by Light microscopy NORMAL NORMAL: NORMAL [facility] COMMENT: ID Date Data Source [id number] 06/05/2021 08:20:00 [place] [address] PHONE: [phone] FAX: [phone] Name .................. : JUANITO Daniels Acct Number.................. : [id number] ROOM. ................. : Number ................... : [id number] Stay type ............. : O/P Discharge Date......... ... : 06/04/21 Admit Date ......... : 06/04/21 Admit Phys .................... : KIM MENDEZ Date of ....... : 1965 Family Phys ................... : REGINE GAIL Phone .................. : [phone] Age ................................ : 56 Film# .................. .:[id number] Sex ................................. : F Unsigned transcriptions are preliminary reports and do not represent a medical or legal document DOPPLER UNILATERAL VENOUS [id number] COMPLETE:06/04/21 15:18 GSP [id number] Reason for Exam: R/O BLOOD CLOT ULTRASOUND LEFT LOWER EXTREMITY VENOUS INDICATION: Left foot swelling. Rule out blood clot COMPARISON: 02/21/2020 Duplex imaging with color flow Doppler and spectral analysis was used to study the deep venous system from common femoral vein through the popliteal vein. A combination of compressibility and flow augmentation was utilized to assess patency. The examination shows no deep venous thrombosis. Patent common femoral, femoral, and popliteal veins. IMPRESSION: No deep venous thrombosis. Electronically Reviewed and Signed By Doyle Leblanc MD , 06/05/21 08:20, SCB Transcribe Initials: REYES , Transcribe Date: 06/04/21 19:14, Dictation Date: Copy for: KIM ESTEVES via [employer] Copy for: Michael [facility] REC Page 1 of 1 Name Value Range Interpretation Code Description Data Maura rce(s) Supporting Document(s) ID Date Data Source [id number] 05/23/2021 08:00:00 AM EDT [facility] ([facility], ) Name Value Range Interpretation Code Description Data Maura rce(s) Supporting Document(s) Gram Stain Laboratory test result Normal (applies to non-n umeric results) [facility] ([facility], ) QUALITY: GOOD MODERATE EPITHELIAL CELLS MODERATE WBCS MANY GRAM POSITIVE COCCI IN PAIRS, CHAINS AND CLUSTERS FEW YEAST LIKE ORGANISM MANY GRAM POSITIVE RODS FEW GRAM NEGATIVE RODS Sputum Culture Laboratory test result Normal (applies to non-numeric results) [facility] ([facility], ) FULL REPORT IN LAB NOTES ([facility] and [facility] ). NORMAL JEROME PRESENT ID Date Data Source [id number] 05/01/2021 08:44:00 PM EDT [facility] 1 OrderSheet [facility] Emergency Department [address] [place] [address] Phone #: ext- [phone] 05/01/2021 20:41 Patient: CHANTALE SOLOMON Sex: F : 1965 Age: 55yWEIGHT:79.3 kg HEIGHT:60 inches BMI:34.1ALLERGIES: Penicillins, SeafoodCHIEF COMPLAINT: palpitations, fast heart rateDIAGNOSIS: Atrial fibrillation, Hypomagnesemia, PneumoniaLAB ORDERSOrder Description Priority Entered Acknowledged InitialedCBC w Diff STAT 20:50 05/01/2021 20:58 Wyatt Chanel Victoria Laura R.N. ;CMP STAT 20:50 05/01/2021 20:58 Wyatt Chanel Victoria Laura R.N. ;Magnesium STAT 20:50 05/01/2021 20:58 Wyatt Chanel Victoria Laura R.N. ;Troponin-T STAT 20:50 05/01/2021 20:58 Wyatt Chanel Victoria Laura R.N. ;TSH STAT 20:50 05/01/2021 20:58 Wyatt Chanel Victoria Laura R.N. ;Urinalysis (Clean STAT 20:50 05/01/2021 Ack'd: 20:59 21:07 Lucía Peck) Gloria Schneider Laura Rachel R.N. ; R.N.Urine Drug Screen STAT 20:50 05/01/2021 Ack'd: 20:59 Jacquelyn Chanel R.N., Victoria Initialed: 21:04 Gloria Schneider ; Cancelled: Wrong Order 21:04 Gloria SchneiderD-Dimer STAT 20:50 05/01/2021 20:59 Wyatt Chanel Victoria Laura R.N. ;Magnesium STAT 21:36 05/01/2021 Cancelled: Duplicate Order 21:37 Gloria Schneider Laura R.N. ;DIAGNOSTIC STUDY ORDERS 2 OrderSheet [facility] Emergency Department [address] [place] [address] Phone #: ext- [phone] 05/01/2021 20:41 Patient: CHANTALE SOLOMON Sex: F : 1965 Age: 55yOrder Description Priority Entered Acknowledged InitialedChest Portable 1 STAT 20:50 05/01/2021 20:59 Yanique,View Gloria Schneider R.N.(Oxygen?(No)) ; Reason for Study: PalpitationCT CTA CHEST STAT 23:01 05/01/2021 Ack'd: 23:11 23:59 Yanique,(NONCOR) W Gloria Kelly Laura Laura R.N.INC PP ; R.N.(Oxygen?(No))(IV?(Yes)) Reason for Study: chest oain palpitation elevated d dimerMEDICATION/IV/DRIP/FLUID ORDERSOrder Description Priority Entered Acknowledged InitialedNS IV 1000 mL 20:50 05/01/2021 Ack'd: 21:00 21:11 Yanique,Bolus: : Bolus 1000 Gloria Schneider Laura Laura R.N.mL (X1) ; R.N.Zofran 4 mg IVP X 1 20:50 05/01/2021 Ack'd: 21:00 21:11 Yanique,dose: 4 mg (NOW Gloria Schneider Laura Laura R.NKellenx1) ; R.N.- (cardizem 180 mg 20:54 05/01/2021 Ack'd: 21:00 21:10 Yanique,po. 1 tab po now) Gloria Schneider Laura Laura R.N. ; R.N.Magnesium Sulfate 23:00 05/01/2021 23:16 Yanique,IVPB 1 gm (Verify Gloria Schneider R.N.Strength in ;Omnicell, [facility]ALERTMEDICATION)GENERAL ORDERSOrder Description Priority Entered Acknowledged InitialedAccucheck 20:50 05/01/2021 20:58 Wyatt Chanel Victoria Laura R.N. ;Boat Joiner 20:50 05/01/2021 20:51 Yanique(continuous) Gloria Schneider R.N. ;EKG 20:50 05/01/2021 20:51 Wyatt Chanel Victoria Laura R.N. 3 OrderSheet [facility] Emergency Department [address] [place] [address] Phone #: ext- [phone] 05/01/2021 20:41 Patient: CHANTALE SOLOMON Sex: F : 1965 Age: 55y ;NPO 20:50 05/01/2021 20:51 Wyatt Chanel Victoria Laura R.N. ;Obtain Old EKG 20:50 05/01/2021 20:51 Wyatt Chanel Victoria Laura R.N. ;Obtain Old Records 20:50 05/01/2021 20:51 Wyatt Chanel Victoria Laura R.N. ;Oxygen (2 L/min) 20:50 05/01/2021 20:51 Yanique(NC) (Titrate to O2 Gloria Schneider R.N.Sat >95%) ;Pulse oximeter 20:50 05/01/2021 20:51 Yanique(Continuous) Gloria Schneider R.N. ;Saline Lock 20:50 05/01/2021 20:51 Wyatt Chanel Victoria Laura R.N. ;Vitals 20:50 05/01/2021 20:51 Wyatt Chanel Victoria Laura R.N. ;EKG 22:59 05/01/2021 23:11 Wyatt Chanel Victoria Laura R.N. ;[Electronically signed by Jacquelyn Chanel R.N. (01:45 05/02/2021)][Electronically signed by Gloria Schneider (07:05 05/03/2021)][Electronically locked by Jacquelyn Chanel R.N. (01:45 05/02/2021)] Name Value Range Interpretation Code Description Data Maura rce(s) Supporting Document(s) ID Date Data Source [id number] 05/01/2021 08:44:00 PM EDT [facility] 1 Medication Reconciliation Report [facility] Emergency Department [address] [place] [address] Phone #: ext- [phone] 05/01/2021 20:41 Patient: CHANTALE SOLOMON Sex: F : 1965 Age: 55yWeight: 79.3 kgHeight/Length: 60 in.BMI: 34.1ALLERGIES: Penicillins, SeafoodThe patient's Home Medications are listed below:CONTINUE TAKING THE FOLLOWING MEDICATIONS: Breo Ellipta Inhalation 1 puff, daily dilTIAZem HCl Oral 180 mg, daily, at bedtime Folic Acid Oral (800 mcg) 1 tablet, daily Furosemide Oral 20 mg, daily Levaquin Oral Magnesium Oral 1000mg , daily Metoprolol Succinate ER Oral Multaq Oral (400 mg), 2x a day Pantoprazole Sodium Oral 40 mg, daily Potassium Oral 10 meq, 2x a day Spiriva HandiHaler Inhalation 2 puffs, daily Xarelto Oral (10 mg) 1 tablet, dailyThe source(s) of the original Home Medication information:Not obtained.The following Medications were given to the patient in the Emergency Department: 2 Medication Reconciliation Report [facility] Emergency Department [address] [place] [address] Phone #: ext- [phone] 05/01/2021 20:41 Patient: CHANTALE SOLOMON Sex: Shaye : 1965 Age: 55yCardizem [PO] PO 180 mg, administered: 21:10 05/01/2021Zofran [IVP] IVP 4 mg, administered: 21:11 05/01/2021odium Chloride [IV] IV Fluids bolus 0, then 1000 mL/hr, administered: 21:05/01/2021Magnesium Sulfate [IVPB] IVPB bolus 0, then 1 gm 50 mL/hr, administered: 23:12 05/01/2021The following Medications were prescribed to the patient:None. Name Value Range Interpretation Code Description Data Maura rce(s) Supporting Document(s) ID Date Data Source [id number] 05/01/2021 08:44:00 PM EDT [facility] 1 Medication Administration Record [facility] Emergency Department [address] [place] [address] Phone #: ext- [phone] 05/01/2021 20:41 Patient: CHANTALE SOLOMON Sex: F : 1965 Age: 55yWeight: 79.3 kgHeight/Length: 60 inBMI: 34.1ALLERGIES: Penicillins, Seafood Date/Time Medication Administered Medication OrderedStart SODIUM CHLORIDE [IV] NS IV 1000 mL Bolus: : Bolus [id number] 05/01/2021 Dose: IV Fluids mL (X1)Jacquelyn Chanel R.N. Rate: 1000 mL/hr over 1 hour(s)---- Dispensed: 1000 mL bagStop Site: #1 left AC22:46 05/01/2021Jacquelyn Chanel R.N.Given ZOFRAN [IVP] (ONDANSETRON HCL) Zofran 4 mg IVP X 1 dose: 4 mg21:11 05/01/2021 Dose: 4 mg IVP (NOW x1)Jacquelyn Chanel R.N. Site: #1 left ACGiven CARDIZEM [PO] (DILTIAZEM HCL) - (cardizem 180 mg po. 1 tab po21:10 05/01/2021 Dose: 180 mg PO now)Jacquelyn Chanel R.N.Start MAGNESIUM SULFATE [IVPB] Magnesium Sulfate IVPB 1 gm23:12 05/01/2021 Dose: 1 gm IVPB (Verify Strength in OmniceBrando de la rosa Laura, R.N. Rate: 50 mL/hr over 30 minute(s) ALERT MEDICATION)---- Dispensed: 25 mL bagStop Site: #1 left AC00:00 05/02/2021Jacquelyn Chanel R.N. Name Value Range Interpretation Code Description Data Maura rce(s) Supporting Document(s) ID Date Data Source [id number] 05/01/2021 08:44:00 PM EDT [facility] 1 General Instructions [facility] Emergency Department [address] [place] [address] Phone #: ext- [phone] 05/01/2021 20:41 Patient: CHANTALE SOLOMON Sex: F : 1965 Age: 55yParoxysmal atrial fibrillation with controlled rate.Bacterial pneumonia. No hypoxemia or respiratory failure.Mild hypomagnesemia.INSTRUCTIONS(take your medications regularly.increase oral fluids. take your magnesium as instructed. you converted tonormal saline in the ER. you do not have a PE. you have a pneumonia on the left lung. take the levaquinas prescribed).Your Current Medications: Your current home medications have been reviewed.CONTINUE TAKING THE FOLLOWING MEDICATIONS:Breo Ellipta Inhalation : 1 puff daily.dilTIAZem HCl Oral : 180 mg daily, at bedtime.Folic Acid Oral : Tablet 800 mcg, 1 tablet daily.Furosemide Oral : 20 mg daily.Levaquin Oral.Magnesium Oral : 1000mg daily.Metoprolol Succinate ER Oral.Multaq Oral : Tablet 400 mg, 2x a day.Pantoprazole Sodium Oral : 40 mg daily.Potassium Oral : 10 meq 2x a day.Spiriva HandiHaler Inhalation : 2 puffs daily.Xarelto Oral : Tablet 10 mg, 1 tablet daily.Follow-up:Follow up with your healthcare provider in three days. Reason for referral: evaluation. Summary of careprovided to patient via paper. ADDITIONAL INFORMATIONAbout Arrhythmias 2 General Instructions [facility] Emergency Department [address] [place] [address] Phone #: ext- [phone] 05/01/2021 20:41 Patient: CHANTALE SOLOMON Sex: F : 1965 Age: 55yElectrical impulses cause the normal heart to beat 60 to 100 times a minute while at rest. Theseimpulses come from a natural pacemaker called the sinus node. It is, inside the right upper heartchamber. Electrical impulses travel throughout the upper heart chambers (the atria) before reachingthe bottom muscle chambers ((the ventricles) through an electrical connection called the AV node.Each impulse causes the heart muscle to contract. This causes the blood to flow through the heartand out to the tissues and organs of your body.An arrhythmia is a change from the normal speed or pattern of these electrical impulses. This cancause the heart to beat too fast (tachycardia), too slow (bradycardia), or in an unsteady pattern(irregular rhythm).Symptoms of arrhythmiasDifferent people experience arrhythmias differently. And different arrhythmias can cause differentsymptoms. Sometimes you may not have symptoms, but just notice a change in your pulse.Symptoms can include: Fluttering feeling in the chest Shortness of breath Chest pain or pressure 3 General Instructions [facility] Emergency Department [address] [place] [address] Phone #: ext- [phone] 05/01/2021 20:41 Patient: CHANTALE SOLOMON Sex: F : 1965 Age: 55y Neck fullness Lightheadedness or dizziness Fainting or almost fainting Palpitations. This is the sense that your heart is fluttering or beating fast or hard or irregularly. Tiredness, fatigue, or weakness Cardiac arrest, and , in serious arrhythmiasCauses of arrhythmiasArrhythmias are most often caused by heart disease, such as: Coronary artery disease ("blocked arteries") Heart valve disease Enlarged heart High blood pressure Heart fail ureOther causes of arrhythmia include: Certain medicines such as asthma inhalers and decongestants Some herbal supplements Cardiac stimulant drugs such as cocaine, amphetamine, and diet pills, and certain decongestant cold medicines, caffeine, and nicotine Heavy use of alcohol Anxiety and panic disorder Thyroid disease Anemia Diabetes Sleep apnea Obesity Congenital heart disease 4 General Instructions [facility] Emergency Department [address] [place] [address] Phone #: ext- [phone] 05/01/2021 20:41 [id number] Sex[facility] F : 1965 Age: 55y Cardiac genetic diseases Electrolyte imbalance. Electrolytes are substances that help regulate normal heartbeat., High or low levels of certain electrolytes such as potassium or magnesium may affect the heartbeat and contribute to arrhythmia.Arrhythmias can often be prevented. The cause and type of arrhythmia determines the besttreatment. Sometimes your doctor may want to monitor your heart rate over a 24-hour period orlonger. This can help find the cause of your arrhythmia and find the best treatment. This can be donewith a Holter monitor. This is a portable electrocardiogram (ECG) recording device attached by wiresto your chest. Or you may get an event monitor, which you can place over the skin in front of yourheart to record heart rhythms. You can carry this with you as you go about your routine activitiesduring the monitoring period. Implantable loop recorders may also be used to monitor the heartrhythm for up to 3 years. This miniature device is placed underneath the skin over the heart.Home careThese guidelines will help you care for yourself at home: Stay away from cardiac stimulants such as cocaine, amphetamine, diet pills, certain decongestant cold medicines, caffeine, and nicotine. If you smoke, stop smoking. Contact your doctor or a local stop-smoking program for help. Tell your doctor about any prescription, [id number], or herbal medicines you take. These may be affecting your heart rhythm.Follow-up careFollow up with your healthcare provider, or as advised. If a Holter monitor has been recommended,contact the faith doctor you have been referred to as soon as you can pickling grader the device. Otheroutpatient tests may also be arranged for you at that time.Call 911This is the fastest and safest way to get to the emergency department. The paramedics can also starttreatment on the way to the hospital, if needed.Don't wait until your symptoms are severe to call 911. Other reasons to call 911 besides chest paininclude: Chest pain radiating to the shoulder, arm, neck, or back. Shortness of breath Feeling lightheaded, faint, or d amy 5 General Instructions [facility] Emergency Department [address] [place] [address] Phone #: ext- [phone] 05/01/2021 20:41 ------ Patient: CHANTALE SOLOMON Sex: F : 1965 Age: 55y Unexplained fainting Rapid heart beat Slower than usual heart rate compared to your normal Very irregular heartbeat Chest pain (angina) with weakness, dizziness, heavy sweating, nausea, or vomiting Extreme drowsiness, or confusion Weakness of an arm or leg or one side of the face Trouble with speech or visionWhen to seek medical adviceRemember, things are not always like they are on TV. Sometimes it is not so obvious. You may onlyfeel weak or just "not right." If it is not clear or if you have any doubt, call for advice. Seek help for chest pain, or if something feels different from usual, even if your symptoms are mild. Don't drive yourself. Have someone else drive. If no one can drive you, call 911. If your doctor has given you medicines to take when you have symptoms, take them, but don't delay getting help while trying to find them. [employer]. [address] [place] [address]. All rights reserved. This information is not intended as asubstitute for professional medical care. Always follow your healthcare professional's instructions.Pneumonia (Adult)Pneumonia is an infection deep in the lungs. It is in the small air sacs (alveoli). It may be caused by avirus, fungus, or bacteria. Pneumonia caused by bacteria is often treated with an antibiotic. Severecases may need to be treated in the hospital. Milder cases can be treated at home. Pneumoniasymptoms are a lot like flu symptoms. They include fever, cough (dry or with phlegm), headache,muscle weakness, and pain. These symptoms often get worse in the first 2 days. But they often startto get better in the first week of treatment. 6 General Instructions [facility] Emergency Department [address] [place] [address] Phone #: ext- [phone] 05/01/2021 20:41 Patient: CHANTALE SOLOMON Sex: F : 1965 Age: 55yHome [facility]low these guidelines when caring for yourself at home: Get plenty of rest. Don't let yourself get overly tired when you go back to your activities. Participate in activities as directed by your healthcare provider. Stop smoking. This is the most important step you can take to help treat pneumonia. If you need help stopping smoking, talk with your healthcare provider. Stay away from smoke and other irritants. Stay away from secondhand smoke. Don't let anyone smoke in your home. 7 General Instructions [facility] Emergency Department [address] [place] [address] Phone #: ext- [phone] 05/01/2021 20:41 Patient: CHANTALE SOLOMON Sex: F : 1965 Age: 55y Prevent lung infections. Ask your healthcare provider about the flu and pneumonia vaccines. Take steps to prevent colds and other lung infections. Practice correct handwashing. Wash your hands often with soap and water. Use hand scourer when you can't wash your hands. Stay away from crowds during cold and flu season. Use pain medicine as directed. You may use acetaminophen or ibuprofen to control fever or pain, unless another medicine was prescribed. If you have chronic liver or kidney disease, talk with your healthcare provider before using these medicines. Also talk with your provider if you've had a stomach ulcer or GI (gastrointestinal) bleeding. Don't give aspirin to a child younger than age 19 unless directed by the provider. Taking aspirin can put a child at risk for Jose syndrome. This is a rare but very serious disorder. It most often affects the brain and the liver. Eat a light diet as needed. You may not feel like eating, so a light diet is fine. Follow the treatment plan as advised by your healthcare provider. Drink plenty of water and fluids. This can make mucus thinner and easier to cough up. Ask your healthcare provider how much water you should drink. For many people, 6 to 8 glasses (8 ounces each) a day is a good goal. Other fluids include sport drinks, sodas without caffeine, juices, tea, or soup. If you also have heart or kidney disease, check with your provider before you drink extra fluids. Finish all prescription medicine. Take antibiotic or antiviral medicine as prescribed by your healthcare provider, even if you are feeling better after a few days. Take the medicine until it is all gone. Try to stay away from air pollution. If you live in an area with air pollution, track the Air Quality Index (AQI) reports and plan your outdoor activities with the AQI recommendations in mindFollow-up careFollow up with your healthcare provider in the next 2 to 3 days, or as advised. This is to be sure themedicine is helping you get better.If you are 65 or older, you should get a pneumococcal vaccine and a yearly flu (influenza) shot. Youshould also get these vaccines if you have chronic lung disease such as asthma, emphysema, orCOPD. A second type of pneumonia vaccine is also available for people over age 65 and thoseyounger than 65 with certain health conditions. Talk with your healthcare provider about whichpneumococcal vaccine is best for you.Call [phone] any of these occur: 8 General Instructions [facility] Emergency Department [address] [place] [address] Phone #: [phone]- [phone] 05/01/2021 20:41 Patient: CHANTALE SOLOMON Sex: Shaye : 1965 Age: 55y Unable to speak or swallow Lips or skin looks blue, purple, or torres Feeling dizzy or faint Unable to wake up or loss of consciousness Feeling of doom Trouble breathing or wheezing Shortness of breath gets worse or doesn't get better with treatment Rapid breathing (more than 25 breaths per minute) Coughing up blood Chest pain gets worse with breathing or doesn't get better with treatmentWhen to get medical adviceCall your healthcare provider right away if any of these occur: You don't get better in the first 2 days of treatment Fever of 100.4F (38C) or higher, or as directed by your healthcare provider Shaking chills Cough with phlegm that doesn't get better, or get worse Shortness of breath with activities Weakness, dizziness, or fainting that gets worse Thirst or dry mouth that gets worse Sinus pain, headache, or a stiff neck Chest pain with breathing or coughing Symptoms that get worse or not improving [id number] [employer]. [address] [place] [address]. All rights reserved. This information is not intendedas a substitute for professional medical care. Always follow your healthcare professional's instructions. You have been given the following additional information: About Arrhythmias Pneumonia (Adult) 9 General Instructions [facility] Emergency Department [address] [place] [address] Phone #: ext- [phone] 05/01/2021 20:41 Patient: CHANTALE SOLOMON Sex: F : 1965 Age: 55y(Electronically signed by Gloria Schneider 05/03/2021 07:05) Name Value Range Interpretation Code Description Data Maura rce(s) Supporting Document(s) ID Date Data Source [id number] 05/01/2021 08:44:00 PM EDT [facility] 1 Clinical Report - Nurses [facility] Emergency Department [address] [place] [address] Phone #: ext- [phone] 05/01/2021 20:41 Patient: CHANTALE SOLOMON Sex: F : 1965 Age: 55yTRIAGEArrived by private vehicle. Historian: patient. Accompanied by family.Acuity: LEVEL 3.Chief Complaint: (Chest pressure).Alert. No acute distress.This started just prior to arrival. ( Patient states about 20 minutes ago she started feeling chest pressuresimilar to when she goes into [facility]. States she just had an appointment with yesterday and medswere not changed.). 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 SEPSIS SCREEN NEGATIVE. No suspected or confirmedsigns of infection present. --20:45 05/01/21 Astrid Harrisn20:42 05/01/21. BP: 131/90. HR: 74. RR: 14. O2 saturation: 100%. Temp: 97.8 F. Pain level now 7/10.--20:45 05/01/21 Lynette Harris.Weight: 79.3 kg. Height/Length: 60 inches. BMI: 34.1. --20:42 05/01/21 Lynette Harris.MedicationsBreo Ellipta Inhalation 1 puff, daily. dilTIAZem HCl Oral 180 mg, daily at bedtime. Folic Acid Oral (Tablet 800 mcg) 1 tablet, daily. Furosemide Oral 20 mg, daily. Magnesium Oral 1000mg , daily. Multaq Oral (Tablet 400 mg), 2x a day. Pantoprazole Sodium Oral 40 mg, daily. Potassium Oral 10 meq, 2x a day. Spiriva HandiHaler Inhalation 2 puffs, daily. Xarelto Oral (Tablet 10 mg) 1 tablet, daily. --20:46 05/01/21 Lynette Harris Metoprolol Succinate ER Oral. --20:46 05/01/21 Lynette Harris Levaquin Oral. --20:49 05/01/21 Nidia Peck R.N.AllergiesPenicillins.Seafood. --20:46 05/01/21 Lynette Harris. 2 Clinical Report - Nurses [facility] Emergency Department [address] [place] [address] Phone #: ext- [phone] 05/01/2021 20:41 Patient: CHANTALE SOLOMON Sex: F : 1965 Age: 55yPROBLEMS:Cancer: Active. (Lung, mets to bones). --20:47 05/01/21 Colleen Harris Disease.DVT - Deep Venous Thrombosis.Hemoptysis.Hypokalemia.Hypertension.COPD - Chronic Obstructive Pulmonary Disease.Atrial Fibrillation.Anemia.Chronic Back Pain.Back Injury.Cancer.Pulmonary Embolism.Pneumonia.TIA - Transient Ischemic Attack.Reflux.Spinal Fracture.Palpitations.Intervertebral Disc Disease.Lower Extremity Pain.Hypomagnesemia.Lung Cancer.Metabolic disease: (Bone). --20:47 05/01/21 Lynette Harris.ADDITIONAL SURGERIES:Appendectomy.Back Surgery (Rods in t spine, crushed t7 t8).Dilatation Curettage.Foot surgery.Heel spur.Right heel spur.Septoplasty.Septoplasty.Tonsillectomy.Tubal Ligation. --20:47 05/01/21 Lynette Harris.HistorySOCIAL HX: Former smoker. No alcohol use or drug use. She was offered HIV testing but declined.Patient education was provided. She was offered hepatitis C testing but declined. Patient education wasprovided. She has not traveled outside the [place]Infectious disease exposure: No infectious disease exposure. The patient was not exposed to Coronavirus.Patient is not a known carrier of tuberculosis, hepatitis, HIV, MRSA or VRE. Patient is not a known carrierof CRE. 3 Clinical Report - Nurses [facility] Emergency Department [address] [place] [address] Phone #: ext- [phone] 05/01/2021 20:41 Patient: CAHNTALE SOLOMON Sex: F : 1965 Age: 55y SELF HARM ASSESSMENT: Self harm assessment was performed. The patient answered "no" to the question(s) "Have you recently felt down, depressed, or hopeless?" and "Do you have thoughts of harming or killing yourself?". ABUSE ASSESSMENT: Abuse assessment. The patient had positive responses to the question(s) "Do you feel safe in your home?" and "Are you afraid to go home?". Abuse denied. No suspicion of abuse. No report of abuse. NUTRITIONAL RISK ASSESSMENT: The nutritional risk assessment revealed no deficiencies. FUNCTIONAL ASSESSMENT: Functional assessment: no impairments noted. LEARNING NEEDS ASSESSMENT: The learning needs assessment revealed no barriers. FALL RISK ASSESSMENT: Fall risk assessment completed. No risk factors identified. SKIN INTEGRITY ASSESSMENT: Skin integrity risk assessment completed. No skin integrity risk identified. --20:45 05/01/21 Lynette Harris. Interventions Identification band on patient. --20:45 05/01/21 Lynette Harris.PHYSICAL ASSESSMENTAmbulatory to room. Patient gowned.GENERAL / NEURO / PSYCH: Alert. Oriented X 4. Appears in no acute distress.HEENT: Mucous membranes are pink.RESPIRATORY: Respirations not labored. Chest nontender. Breath sounds within normal limits.CVS: Cardiac rhythm: atrial fibrillation; (77). Heart sounds within normal limits. Pulses within normallimits. Capillary refill less than 2 seconds.GI / : Abdomen soft and nontender. ( Pt reports 1 episode of di arrhea).EXTREMITIES: No lower extremity edema.SKIN: Skin is warm and dry. Normal skin turgor. Skin is non-tender. --21:05/01/21 Jacquelyn Chanel R.N.NURSING PROGRESS NOTESOxygen administered by nasal cannula at 2 liters (on 2 L at home). Monitoring of patient in place. Patientgowned. Reassurance given. Two patient identifiers checked. Call light placed in reach. Side rails upx 2. Bed placed in lowest position. Brakes of bed on. Patient ready for evaluation. --20:45 05/01/21Lynette Harris EKG was performed by a tech and shown to the ED physician. --20:47 05/01/21 Lynette Harris Cardiac rhythm: atrial fibrillation. --20:47 05/01/21 Lynette Harris 4 Clinical Report - Nurses [facility] Emergency Department [address] [place] [address] Phone #: ext- [phone] 05/01/2021 20:41 Patient: CHNATALE SOLOMON Sex: F : 1965 Age: 55y21:10 05/01/2021 Cardizem (dilTIAZem HCl) PO 180 mg given. Allergies verified and confirmed 5 rights.Information reviewed with patient. Verbalizes understanding. --21:05/01/21 Jacquelyn Chanel R.N.21:05/01/2021 Site #1 started via IV in the left antecubital space with an 20g angiocath, with aseptictechnique; one attempt. Blood drawn: rainbow set. Sent to the lab. Saline lock flushed with 10 mL saline.--21:05/01/21 Jacquelyn Chanel R.N.21:11 05/01/2021 Zofran (Ondansetron HCl) IVP 4 mg given via site #1. Allergies verified and confirmed 5rights. IV patency established. IV site checked: no pain, redness, or swelling. IV flushed thoroughly pre-and post-medication administration. IVP given by RN. Information reviewed with patient. Verbalizesunderstanding. --21:11 05/01/21 Jacquelyn Chanel R.N.21:11 05/01/2021 Started bag #1 1000 mL IV Fluids Sodium Chloride; at 1000 mL/hr over 1 hour(s) via site#1 via IV pump. Allergies verified and confirmed 5 rights. IV patency established. IV site checked: no pain,redness, or swelling. IV flushed thoroughly pre- and post-medication administration. Information reviewedwith patient. Verbalizes understanding. --21:05/01/21 Jacquelyn Chanel R.N.EKG time: (late entry - 23:08 05/01/2021). EKG was performed by a nurse and shown to the EDphysician. --23:11 05/01/21 Jacquelyn Chanel R.N.The patient is calm and resting quietly. --23:11 05/01/21 Jacquelyn Chanel R.N.Patient ID band checked for patient name and birthdate: patient confirmed. Instructions provided to collectclean catch urine and patient verbalized understanding. Clean catch urine collected with return ofyellow- colored clear urine; odor is normal; sample sent to lab for urinalysis. Specimen labeled in thepresence of the patient (Patient ambulated to bathroom with steady gaitt independently.). --23:12 05/01/21Jacquelyn Chanel R.N.22:46 04/04 IV Fluids Sodium Chloride via IV site #1 Discontinued: completed. Total amount infused:1000 mL. IV patency established. IV site checked: no pain, redness, or swelling. IV flushed thoroughly.--00:00 05/02/21 Jacquelyn Chanel R.N.23:12 05/01/2021 Started 1 gm of Magnesium Sulfate IVPB in bag #1 25 mL; at 50 mL/hr over 30 minute(s)via site #1. via IV pump. Allergies verified and confirmed 5 rights. IV patency established. IV site checked:no pain, redness, or swelling. IV flushed thoroughly pre- and post-medication administration. Informationreviewed with patient. Verbalizes understanding. --23:16 05/01/21 Jacquelyn Chanel R.N.The patient is calm and resting quietly. --23:42 05/01/21 Jacquelyn Chanel R.N.23:41 05/01/21. BP: 109/71. MAP: 83. HR: 81. RR: 19. O2 saturation: 100% on nasal cannula at 2liters/minute. --23:42 05/01/21 Jacquelyn Chanel R.N.00:00 05/02/2021 Magnesium Sulfate IVPB via IV site #1 Discontinued: completed. Total amount infused: 5 Clinical Report - Nurses [facility] Emergency Department [address] [place] [address] Phone #: ext- [phone] 05/01/2021 20:41 Patient: CHANTALE SOLOMON Sex: F : 1965 Age: 55y 25 mL. IV patency established. IV site checked: no pain, redness, or swelling. IV flushed thoroughly. --00:00 05/02/21 Jacquelyn Chanel R.N. The patient is calm and resting quietly. --00:23 05/02/21 Jacquelyn Chanel R.N. 00:22 05/02/21. BP: 122/72. MAP: 88. HR: 81. RR: 17. O2 saturation: 100% on nasal cannula at 2 liters/minute. --00:23 05/02/21 Jacquelyn Chanel R.N. Rounding: Pain: denies pain. Position: states comfortable and repositioned. Personal care / toileting: assisted with toileting. Proximity of possessions / care items: call light within easy reach and moved items closer. Plug ins: assured IV pump plugged in; checked status of equipment in use; located all cords, tubes, and lines to prevent fall hazard. Set expectations: advised patient of rounding protocol timing and asked if they needed anything else at this time. The patient is calm and resting quietly. --01:01 05/02/21 Jacquelyn Chanel R.N. 01:01 05/02/21. BP: 119/78. MAP: 91. HR: 88. RR: 21. O2 saturation: 100% on nasal cannula at 2 liters/minute. Pain level now: 0/10. --01:01 05/02/21 Jacquelyn Chanel R.N.DISPOSITION / DISCHARGE 01:36 05/02/21. BP: 120/79. MAP: 92. HR: 81. RR: 20. O2 saturation: 100% on nasal cannula at 2 liters/minute. Temp: 98.1 F. Pain level now: 0/10. --01:37 05/02/21 Jacquelyn Chanel R.N. 01:44 05/02/2021 Site #1 removed upon discharge. Bandage applied. --01:44 05/02/21 Jacquelyn Chanel R.N. Condition at departure: stable. No learning barriers present. Discharge instructions provided and reviewed with the patient. Reviewed warnings. Reviewed medication(s) (continue to take prescribed levequin). Treatments reviewed. Reviewed referrals. Patient verbalized understanding. Written instructions provided in Lithuanian. The patient was discharged by the physician. She was discharged home and accompanied by spouse. She left ambulatory and via private vehicle. Spouse driving. --01:45 05/02/21 Jacquelyn Chanel R.N.Locked/Released at 05/02/2021 01:45 by Jacquelyn Chanel R.N. Name Value Range Interpretation Code Description Data Maura rce(s) Supporting Document(s) ID Date Data Source [id number] 05/01/2021 08:44:00 PM EDT [facility] 1 Clinical Report - Physicians/Mid Levels [facility] Emergency Department [address] [place] [address] Phone #: ext- [phone] 05/01/2021 20:41 [id number] Sex[facility] F : 1965 Age: 55y Time Seen: 20:45 05/01/2021; initial patient contact, initial documentation. Arrived- By private vehicle. Historian- patient. Disposition decision: 01:35 05/02/2021.HISTORY OF PRESENT ILLNESS Chief Complaint: PALPITATIONS. FAST HEART RATE. This started just prior to arrival and is still present but is better now. Onset during rest. No history of caffeine use prior to onset, decongestants use prior to onset, cocaine use prior to ons et or amphetamine use prior to onset. It is described as a fast and pounding heart beat. She did not lose consciousness. She did not feel like might "pass out". Not described as dizziness. Modifying factors. Not worsened by anything. Not relieved by anything. The patient has had chest discomfort and difficulty breathing. No sweating episodes, dizziness, tingling or muscle spasms. ( Jaswant nt has a history of paroxysmal atrial fibrillation and presented to the ER with rapid heart rate saying she is in atrial fibrillation again. she has been seen in the ER multiple times recently and was placed on Multaq and metoprolol on top of her cardizem. she has not taken her cardizem tonight). Similar symptoms previously. Patient has had similar symptoms several times.REVIEW OF SYSTEMS No fever, chills, orthopnea, calf pain or enlarged lymph nodes. No abnormal bleeding, missed periods, headache, sore throat or blurred vision. No abdominal pain, difficulty with urination, skin rash, depression or trouble sleeping. No vomiting or bloody stools. The patient has had a cough, nausea and diarrhea but not had a poor appetite. All other systems reviewed and are negative.PAST HISTORY Problems: Cancer [Active]. (Lung, mets to bones) Heart Disease. DVT - Deep Venous Thrombosis. Hemoptysis. Hypokalemia. Hypertension. COPD - Chronic Obstructive Pulmonary Disease. Atrial Fibrillation. Anemia. Back Injury. Cancer. Pulmonary Embolism. Pneumonia. TIA - Transient Ischemic Attack. Reflux. Spinal Fracture. Palpitations. 2 Clinical Report - Physicians/Mid Levels [facility] Emergency Department [address] [place] [address] Phone #: ext- [phone] 05/01/2021 20:41 Patient: CHANTALE SOLOMON Sex: F : 1965 Age: 55y Intervertebral Disc Disease. Lower Extremity Pain. Hypomagnesemia. Lung Cancer. Metabolic disease. (Bone). Additional Surgeries: Appendectomy. Back Surgery. (Rods in t spine, crushed t7 t8) Dilatation Curettage. Foot surgery. Heel spur. Right heel spur. Septoplasty. Septoplasty. Tonsillectomy. Tubal Ligation. Medications: Levaquin Oral. Metoprolol Succinate ER Oral. Breo Ellipta Inhalation 1 puff, daily. dilTIAZem HCl Oral 180 mg, daily at bedtime. Folic Acid Oral (Tablet 800 mcg) 1 tablet, daily. Furosemide Oral 20 mg, daily. Magnesium Oral 1000mg , daily. Multaq Oral (Tablet 400 mg), 2x a day. Pantoprazole Sodium Oral 40 mg, daily. Potassium Oral 10 meq, 2x a day. Spiriva HandiHaler Inhalation 2 puffs, daily. Xarelto Oral (Tablet 10 mg) 1 tablet, daily. Allergies: Penicillins. Seafood.SOCIAL HISTORY Former smoker. No alcohol use or drug use.ADDITIONAL NOTES The nursing notes have been reviewed .PHYSICAL EXAM Vital Signs: 05/01/2021 20:42 BP: 131/90. MAP: 103. HR: 74. RR: 14. O2 saturation: 100%. Temp: 97.8 F. Have been reviewed. Oxygen saturation normal. 3 Clinical Report - Physicians/Mid Levels [facility] Emergency Department [address] [place] [address] Phone #: ext- [phone] 05/01/2021 20:41 Patient: CHANTALE SOLOMON [facility]#: [id number] Sex: F : 1965 Age: 55y Appearance: Alert. No acute distress. Anxious. Eyes: Pupils equal, round and reactive to light. Eyes normal inspection. ENT: Pharynx normal. Neck: Normal inspection. Neck supple. CVS: Abnormal rhythm, which is irregularly irregular. Normal heart rate. Respiratory: No respiratory distress. Painless inspiration. Breath sounds normal. Chest nontender. Abdomen: Soft and nontender. Bowel sounds normal. No organomegaly. No mass. Femoral pulses equal. Back: Normal external inspection. No CVA tenderness. Skin: Skin warm and dry. Normal skin color. No rash. Normal skin turgor. Extremities: Extremities exhibit normal ROM. No lower extremity edema. Neuro: Oriented X 3. No motor def icit.LABS, X-RAYS, AND EKG EKG: EKG time: 20:47 05/01/2021. Atrial fibrillation (87). Normal P waves. Normal QRS complex. Non-specific ST segment / T wave abnormalities. EKG unchanged when compared with prior EKG. (). The study has been interpreted contemporaneously by me. The study has been independently viewed by me. The EKG appears to be a good tracing. EKG #2: EKG time: 23:08 05/01/2021. No acute process. No acute ischemia. Normal EKG. Normal sinus rhythm. Rate: 81. Normal P waves. Normal QRS complex. Non-specific ST segment / T wave abnormalities. Changes present when compared to prior EKG. (3 hours ago. converted to normal sinus rhythm). The study has been interpreted contemporaneously by me. The study has been independently viewed by me. The EKG appears to be a good tracing. Interpretation time: 23:17 05/01/2021. Chest X- ray: (Isma carcamo Neal - 05/01/2021 9:19:13 PM [facility]). Laboratory Tests: CT CTA CHEST NON-CORONARY W CON INC PP: (SARAH: 05/01/2021 23:01) ( M sgRcvd 05/02/2021 01:30) Final results Test Result Flag Units (Reference) CT CTA CHEST NON-CORONARY W CON INC PP [address] [place] [address] ---------NAME--------- NUMBER SEX AGE ADMIT DISC. XRAY# F/C TYPE JUANITO Daniels [id number] F 55 05/01/21 [id number] BBF E/R DATE OF : 1965 M/R# [id number] PH#: [phone] TR-02 LOCATION: EMERGENCY DEPT TRANSCRIBED: 05/02/21 1:[address] CTA CHEST NON-CORONARY W [id number] COMPLETED:05/02/21 17 [id number] Reason(s): chest oain palpitation elevated d dimer -- PHYSICIAN: WYATT -- -- R A D I O L O G Y R E P O R T -- PATIENT HISTORY: ACTUAL DOSE 947.6 mGy*cm chest pain palpitations elevated d dimer isovue 370 75cc [id number] March 2023 was given Patient hx menopause. Verification of 2 patient identifiers performed. 4 Clinical Report - Physicians/Mid Levels [facility] Emergency Department [address] [place] [address] Phone #: ext- [phone] 05/01/2021 20:41 Patient: CHANTALE SOLOMON Sex: F : 1965 Age: 55yTime Out performed. type and amount of contrast used, correct body part and sideall verified prior to examination. Exam has been sent to [facility] - If further informationis needed, the number is . Report will be faxed to ED and/orXray. / O-MAR, SOFT TISSUE, O-MAR. Compare with non-O-MAR images (DICOM Hx)EXAM: CTA Chest with Intravenous Contrast for PE evaluation--CLINICAL HISTORY:ACTUAL DOSE 947.6 mGy*cm chest pain palpitations elevated ddimer isovue 370 75cc [id number] March 2023 was given Patient hx menopause.Verification of 2 patient identifiers performed. Time Out performed. type andamount of contrast used, correct body part and side all verified prior toexamination. Exam has been sent to [facility] - If furtherinformation is needed, the number is . Report will be faxed to ED-- and/or Xray.--TECHNIQUE: Axial CTA images of the chest with intravenous contrast using apulmonary embolism protocol. Multiplanar reconstructed images were created andreviewed. All CT scans at this facility use dose modulation, iterativereconstruction, and/or weight-based dosing when appropriate to reduce radiationdose to as low as reasonably achievable.--CONTRAST:With; isovue 370 75cc [id number] March 2023 was administered without-- incident.--COMPARISON: CT - CT THORAX W/O CONTRAST - 08/06/20 05:23 EDT---- FINDINGS:--PULMONARY ARTERIES:Grafting examination is limited by body habitus. There isalso artifact from spinal hardware. This limits evaluation of the segmentalpulmonary artery branches. No definite pulmonary embolus is seen. There ismoderate to large cardiomegaly. Some coronary artery calcifications are noted.There is a small pericardial effusion.--AORTA: There is no evidence for aneurysm or dissection of the thoracic aorta.--LUNGS:There is extensive mucous plugging throughout the left lung with extensiveconsolidation throughout the left lung. Some mild atelectasis is also notedthroughout both lungs.--PLEURAL SPACES: No pneumothorax evident. No pleural effusions.--HEART: Normal heart size. No significant pericardial effusion.--LYMPH NODES: No lymphadenopathy is evident.--BONES:Chronic compression deformities of the thoracic spine are noted statuspost laminectomy and fusion. No definite acute fracture is seen.--UPPER A BDOMEN: Images of the upper abdomen are unremarkable.---- IMPRESSION:--No definite pulmonary embolus.--Extensive mucous plugging and pneumonia of the left lung.--While performing the above CT examination, radiation dose reduction wasaccomplished utilizing automated exposure control, adjusting of the mA and kVbased on the patient's body size and/or the use of imperative reconstructive-- techniques.-- 5 Clinical Report - Physicians/Mid Levels [facility] Emergency Department [address] [place] [address] Phone #: ext- [phone] 05/01/2021 20:41 Patient: CHANTALE SOLOMON Sex: F : 1965 Age: 55y -- -- Electronically Signed By: Jim Medrano MD , Radiologist Date/Time: 05/02/21 01:30Magnesium: (SARAH: 05/01/2021 21:36) ( MsgRcvd 05/01/2021 21:37) CanceledCBC w Diff: (SARAH: 05/01/2021 20:56) ( MsgRcvd 05/01/2021 22:07) Final results Test Result Flag Units (Reference) CBC W/AUTOMATED DIFF COMPLETE BLOOD COUNT WBC 8.4 10/uL (4.2 - 11.0) RBC 2.90 L 10/uL (4.20 - 5.40) HEMOGLOBIN 9.8 L g/dL (12.0 - 16.0) HEMATOCRIT 30.2 L % (37.0 - 47.0) MCV 104.1 H fL (81.0 - 101) MCH 33.8 pg (27.0 - 34.0) MCHC 32.5 g/dL (31.0 - 36.0) RDW 18.6 H % (11.5 - 14.5) PLATELETS 375 10/uL (150 - 450) MPV 9.9 fL (7.4 - 10.4) NEUT 63.7 % (37.0 - 80.0) LYMPH 11.3 L % (25.0 - 40.0) MONO 20.6 H % (3.0 - 8.0) EOS 2.7 % (0.0 - 7.0) BASO 0.4 % (0.0 - 2.5) %IG 1.3 H % (0.0 - 0.0) %NRBC 0.0 % (0.0 - 0.0) #NEUT 5.36 10/uL (2.00 - 6.90) #LYMPH 0.95 10/uL (0.60 - 3.40) #MONO 1.73 H 10/uL (0.00 - 0.90) #EOS 0.23 10/uL (0.00 - 0.70) #BASO 0.03 10/uL (0.00 - 0.20) #IG 0.11 H 10/uL (0.00 - 0.10) #NRBC 0.00 10/uL (0.00 - 0.00) MANUAL DIFF SEE BELOW SEGS 62 % (37 - 80) %LYMPH 20 L % (25 - 40) %MONO 15 H % (3 - 8) %EOS 3 % (0 - 7) RBC MORPH NOT INDICATEDCMP: (SARAH: 05/01/2021 21:30) ( MsgRcvd 05/01/2021 22:11) Final results Test Result Flag Units (Reference) COMPREHENSIVE METABOLIC PANEL COMPREHENSIVE METABOLIC PANEL SODIUM 140 mEq/L (134 - 153) POTASSIUM 3.7 mEq/L (3.6 - 5.0) CHLORIDE 102 mEq/L (98 - 107) CO2 30 MEQ/L (22 - 30) GLUCOSE 109 H MG/DL (70 - 99) BUN 10 MG/DL (7 - 21) CREATININE 1.1 MG/DL (0.7 - 1.5) BUN/CREAT 9 (8 - 27) TOTAL PROTEIN 6.0 L G/DL (6.3 - 8.2) ALBUMIN 3.1 L G/DL (3.9 - 5.0) 6 Clinical Report - Physicians/Mid Levels [facility] Emergency Department [address] [place] [address] Phone #: ext- [phone] 05/01/2021 20:41 Patient: CHANTALE SOLOMON Sex: F : 1965 Age: 55y GLOBULIN 2.9 GM/DL (2.4 - 3.2) A/G RATIO 1.1 (0.8 - 2.0) CALCIUM 8.6 MG/DL (8.4 - 10.2) TOTAL BILI <0.7 MG/DL (0.2 - 1.3) ALKALINE PHOS 92 U/L (38 - 126) SGOT/AST 26 U/L (5 - 40) SGPT/ALT 24 U/L (7 - 56) ANION GAP 8.0 mmol/L (8.0 - 16.0) AGE 55 yrs NON-AA GFR 55 mL/min AFR AMER GFR >60 mL/min Male GFR Interprentation 20-49 yrs >60 mL/min Gwgbhe25-92 yrs >56 mL/min Normal 60-69 yrs >49 mL/min Normal 70-79yrs>42 mL/min Normal 80 and above >35 mL/min Normal Female GFRInterpretation 20-39 yrs > 60 mL/min Normal 40-49 yrs >58 mL/minNormal 50-59 yrs >51 mL/min Normal 60-69 yrs >45 mL/min Pzkifs30-38 yrs >39 mL/min Normal 80 and above >32 mL/min NormalMagnesium: (SARAH: 05/01/2021 21:30) ( [facility] 05/01/2021 22:11) Final results Test Result Flag Units (Reference) MAGNESIUM 1.6 L MG/DL (1.7 - 2.2)Troponin-T: (SARAH: 05/01/2021 20:56) ( [facility] 05/01/2021 21:29) Final results Test Result Flag Units (Reference) TROPONIN T 0.02 NG/ML (0.00 - 0.10) TROPONIN T0.1 ng/ml Recommended as the clinical threshold value forTroponin T.TSH: (SARAH: 05/01/2021 21:30) ( [facility] 05/01/2021 22:09) Final results Test Result Flag Units (Reference) TSH 1.79 uIU/mL (0.47 - 5.01)Urinalysis: (SARAH: 23:10) ( [facility] 05/01/2021 23:53) Final results Test Result Flag Units (Reference) URINALYSIS URINALYSIS SOURCE R COLOR yellow (NORMAL: Yello CLARITY clear (NORMAL: Clear SPEC GRAVITY 1.010 (1.001 - 1.030 pH 6 (5 - 9) GLUCOSE NORM (NORMAL: Negat BILIRUBIN NEG (NORMAL: Negat KETONE NEG (NORMAL: Negat PROTEIN NEG (NORMAL: Negat NITRITE NEG (NORMAL: Negat BLOOD NEG (NORMAL: Negat LEUK EST NEG (NORMAL: Negat UROBILINOGEN NOR (less than 1.0 MICROSCOPIC Not IndicateDrug Screen-Urine: (SARAH: 05/01/2021 20:50) ( [facility] 05/01/2021 21:04) CanceledD-Dimer: (SARAH: 05/01/2021 21:30) ( [facility] 05/01/2021 21:56) Final results 7 Clinical Report - Physicians/Mid Levels [facility] Emergency Department [address] [place] [address] Phone #: ext- [phone] 05/01/2021 20:41 Patient: CHANTALE SOLOMON Sex: F : 1965 Age: 55y Test Result Flag Units (Reference) D-DIMER QUANT 1.21 H ug/mL (0.27 - 0.50)Chest Portable 1 View: (SARAH: 05/01/2021 20:50) ( MsgRcvd 05/02/2021 00:40) In ProgressCHEST PORTABLEReason(s): PalpitationTRANSPORTATION: P IV? O2? Oxygen?(No) Room: [place] [address] PHONE: [phone] FAX: [phone] Name .................. : JUANITO Daniels Acct Number.................. : [id number] ROOM. ................. : TR-02 MR Number ................... : [id number] Stay type ............. : E/R Discharge Date......... ... : Admit Date ......... : 05/01/21 Admit Phys .................... : WYATT Date of ....... : 1965 Family Phys ................... : SEQUEIRA Phone .................. : [phone] Age ................................ : 55 Film# .................. .:[id number] Sex ................................. : F Unsigned transcriptions are preliminary reports and do not represent a medical or legal document CHEST PORTABLE [id number] COMPLETE:05/01/21 21:04 DLA 17743 Reason(s): Palpitation PORTABLE CHEST X-RAY: INDICATION: Palpitations. FINDINGS: There is a right-sided IJ port with the tip overlying the SVC. The right lung is clear. The left lung demonstrates stable white out. The cardiac silhouette is obscured. There is no acute osseous abnormality. Spinal fusion rods are noted in the thoracic spine. IMPRESSION: No acute pulmonary process. No significant change. Electronically Reviewed and Signed By DCTRENEE SIGNMARIA C MENDOZA Transcribe Initials: REYES , Transcribe Date: 05/02/21 00:37, Dictation Date: <<REPDIST>> Page 1of 1 8 Clinical Report - Physicians/Mid Levels [facility] Emergency Department [address] [place] [address] Phone #: ext- [phone] 05/01/2021 20:41 Patient: CHANTALE SOLOMON Sex: F : 1965 Age: 55y.PROGRESS AND PROCEDURES Course of Care: 23:02 05/01/21. Patient was noted to be in atrial fibrillation with normal ventricular rate. we gave her Cardizem 180 PO as she has not taken her evening Cardizem. she converted to normal saline. her magnesium is low so i ordered magnesium sulfate. her d dimer was elevated as well as I sent her for CTA of the chest to rule out PE 01:05/02/21. Patient remained in sinus rhythm,awaiting ct a of the chest 01:31 05/02/21. CTA did not show any PE she has mucus plugging and pneumonia on the left lung. patient is already on antibiotics which she started yesterday. Patient counseled in person regarding the patient's stable condition, test results, diagnosis and need for follow-up. Patient agrees with plan of care. 01:35. Disposition orders written. Disposition: Discharged home in good and improved condition (01:35). Condition: good and stable. Discharge decision based on the following: patient's condition is improved; patient is ambulatory; patient's exam is improved; no seriously abnormal test results; stable condition on repeat evaluation; social support is adequate; transportation is available; follow-up is available; clinical impression is consistent with outpatient treatment.CLINICAL IMPRESSION Paroxysmal atrial fibrillation with controlled rate. Bacterial pneumonia. No hypoxemia or respiratory failure. Mild hypomagnesemia.INSTRUCTIONS (take your medications regularly.increase oral fluids. take your magnesium as instructed. you converted to normal saline in the ER. you do not have a PE. you have a pneumonia on the left lung. take the levaquin as prescribed). Your Current Medications: Your current home medications have been reviewed. CONTINUE TAKING THE FOLLOWING MEDICATIONS: Breo Ellipta Inhalation : 1 puff daily. dilTIAZem HCl Oral : 180 mg daily, at bedtime. Folic Acid Oral : Tablet 800 mcg, 1 tablet daily. 9 Clinical Report - Physicians/Mid Levels [facility] Emergency Department [address] [place] [address] Phone #: ext- [phone] 05/01/2021 20:41 [id number] Sex[facility] F : 1965 Age: 55y Furosemide Oral : 20 mg daily. Levaquin Oral. Magnesium Oral : 1000mg daily. Metoprolol Succinate ER Oral. Multaq Oral : Tablet 400 mg, 2x a day. Pantoprazole Sodium Oral : 40 mg daily. Potassium Oral : 10 meq 2x a day. Spiriva HandiHaler Inhalation : 2 puffs daily. Xarelto Oral : Tablet 10 mg, 1 tablet daily. Follow-up: Follow up with your healthcare provider in three days. Reason for referral: evaluation. Summary of care provided to patient via paper.(Electronically signed by Gloria Schneider 05/03/2021 07:05) Name Value Range Interpretation Code Description Data Maura rce(s) Supporting Document(s) ID Date Data Source [id number] 05/01/2021 08:44:00 PM EDT [facility] for CHANTALE SOLOMON VisitID: [id number] Date: 14:07FSG ordered but not performed. please cancel order. blood sugar on chemistry was 109(Electronically signed by Gloria Schneider - 05/20/2021 14:07) Name Value Range Interpretation Code Description Data Maura rce(s) Supporting Document(s) ID Date Data Source [id number] 05/13/2021 09:14:00 [place] [address] DISCHARGE SUMMARYNAME: JUANITO Daniels ROOM#: [id number] OF : 1965 MR#: [id number] PHYS: Osmel Alvarez MD, PC DATE: 04/17/21 DISCHARGED: 04/20/21HISTORY OF PRESENT ILLNESS:This is a 55-year-old female who initially came to the emergency room when she felt her heart was racing. Shehad been seen for atrial fibrillation. She had been converted medically to sinus rhythm. She states that as soonas she got home, she felt she went back into atrial fibrillation. Upon arrival, blood pressure was 132/83. Heartrate was 97. Respirations 21. O2 saturation was 100% on room air. Temperature was 98.1. She was having nocomplaints of pain. EKG was done which showed tachycardia, no acute ischemia. Assessment was done andpatient was ultimately admitted observation status for paroxysmal atrial fibrillation.LABORATORY STUDIES:Serial CBCs were done. She was slightly anemic at 10.3/31.2 and on discharge was 9.1/27.8. White count wasnormal. Platelets remained normal from 244 to 166. Her initial magnesium was 1.7. TSH Was 1.68. Free T4was 7.23. Her initial iron was normal at 77. Her initial BNP was 766. Electrolytes were normal. CO2 was upslightly at 31. BUN was 14. Creatinine was 0.8. Her magnesium on the was slightly low at 1.5.Replacement was given and was 1.7 on day of discharge. BNP was improved down to 692.HOSPITAL COURSE:By the , she had been started on Multaq 400 mg p.o. b.i.d. and continued on Cardizem CD 180 daily. Shecontinued on her oxygen as she wears that for her COPD. She still felt that when she ambulated in the smith, herheart seemed to get faster. On the , she received 2 grams of magnesium sulfate. Lasix was held as she feltslightly lightheaded. On the , she was feeling well. She had been up ambulating. She remained in sinusrhythm. Her vital signs were stable and decision was made to discharge patient to home.DISCHARGE DIAGNOSIS: 1. Paroxysmal atrial fibrillation, currently in sinus rhythm. 2. History of GERD. Continue Protonix. 3. History of hypertension, stable.DISCHARGE PLAN: 1. Discharged to home. 2. No added salt diet. 3. Patient felt she was slightly weakened. PT/OT felt she could go home and she will have some outpatient therapy for strengthening. 4. Continue home O2 as before admission. 5. Follow up with Dr. Alvarez on 04/30/21 at 2:45 PM.HOME MEDICATIONS:1. Breo Ellipta 1 inhalation daily2. Diltiazem 180 p.o. daily [address] [place] [address] DISCHARGE SUMMARYNAME: JUANITO Daniels ROOM#: [id number] OF : 1965 MR#: [id number] PHYS: Osmel Alvarez MD, PC DATE: 04/17/21 DISCHARGED: 04/20/21 3. Folic acid 0.8 mg daily 4. Lasix 20 mg daily 5. Magnesium 250 mg twice a day 6. Multaq 400 mg p.o. twice a day 7. Protonix 40 mg p.o. daily 8. Potassium 10 mEq p.o. twice a day 9. Slow release iron 45 mg once daily 10. Xarelto 10 mg p.o. daily 11. Spiriva 2 puffs inhalation dailyPatient was discharged in stable condition.DD: CARYN Nava 05/13/21 20:16DT: SONYA 05/13/21 20:39DS: CARYN Nava 05/18/21 11:18 2 Name Value Range Interpretation Code Description Data Maura rce(s) Supporting Document(s) ID Date Data Source [id number] 05/11/2021 03:07:00 [place] [address] PHONE: [phone] FAX: [phone] Name .................. : JUANITO Daniels Acct Number.................. : [id number] ROOM. ................. : MR Number ................... : [id number] Stay type ............. : O/P Discharge Date......... ... : 05/10/21 Admit Date ....... .. : 05/10/21 Admit Phys .................... : MILVIA JOYCE Date of ....... : 1965 Family Phys ................... : SEQUEIRA Phone .................. : [phone] Age ................................ : 56 Film# .................. .:[id number] Sex ................................. : F Unsigned transcriptions are preliminary reports and do not represent a medical or legal document PELVIC 43745 COMPLETE:05/10/21 11:12 [facility] [address] Reason for Exam: PELVIC PAIN PELVIC SONOGRAM, 05/10/21: INDICATION: Pelvic pain. FINDINGS: Uterus measures 6.9 x 2.0 x 2.8 cm. Endometrium is normal measuring 3 mm. Visualized portions of the urinary bladder appear unremarkable. Bilateral ovaries are not clearly visualized on today's examination. Patient declined a transvaginal study. No free fluid is identified. IMPRESSION: Uterus and endometrium appear unremarkable. Bladder is within normal limits. Ovaries are not clearly visualized. Patient declined a transvaginal study. Examination dictated by JOHN Klein. Examination was reviewed with Everett Jimenez MD, radiologist at the time of this dictation. Electronically Reviewed and Signed By Everett Jimenez MD , 05/11/21 15:07, KGG Transcribe Initials: [facility], Transcribe Date: 05/10/21 12:33, Dictation Date: Page 1 of 2 [facility] [address] [place] [address] PHONE: [phone] FAX: [phone] Name .................. : JUANITO Daniels Acct Number.................. : [id number] ROOM. ................. : MR Number ................... : [id number] Stay type ............. : O/P Discharge Date......... ... : 05/10/21 Admit Date ......... : 05/10/21 Admit Phys .................... : MILVIA JOYCE Date of ....... : 1965 Family Phys ................... : SEQUEIRA Phone .................. : [phone] Age ................................ : 56 Film# .................. .:[id number] Sex ................................. : F Unsigned transcriptions are preliminary reports and do not represent a medical or legal document PELVIC 27485 COMPLETE:05/10/21 11:12 [facility] [address] Reason for Exam: PELVIC PAIN Copy for: MILVIA PIZANO via fax Copy for: [facility] MED REC Page 2 of 2 Name Value Range Interpretation Code Description Data Maura rce(s) Supporting Document(s) ID Date Data Source [id number] 05/11/2021 03:06:00 PM EDT [facility] [address] [place] [address] PHONE: [phone] FAX: [phone] Name .................. : JUANITO Daniels Acct Number.................. : [id number] ROOM. ................. : MR Number ................... : [id number] Stay type ............. : O/P Discharge Date......... ... : 05/10/21 Admit Date ....... .. : 05/10/21 Admit Phys .................... : MILVIA JOYCE Date of ....... : 1965 Family Phys ................... : REGINE GAIL Phone .................. : [phone] Age ................................ : 56 Film# .................. .:[id number] Sex ................................. : F Unsigned transcriptions are preliminary reports and do not represent a medical or legal document HIP BILAT W PELVIS 2 VIEWS 66800 COMPLETE:05/10/21 09:50 [facility] [address] Reason for Exam: SYMPLRYNIC PUBIS PAIN BILATERAL HIPS, 05/10/21: FINDINGS: Frontal view of pelvis, frontal views of bilateral hips, and frog-leg views of bilateral hips were performed. There is no acute fracture, subluxation, or focal osseous lesion seen. Osteoarthritic changes are not identified. Bony mineralization is within normal limits. IMPRESSION: Unremarkable radiograph of bilateral hips and pelvis. Electronically Reviewed and Signed By Everett Jimenez MD , 05/11/21 15:06, KGG Transcribe Initials: NARESH, Transcribe Date: 05/10/21 11:12, Dictation Date: Copy for: MILVIA PIZANO via fax Copy for: [address] [place] [address] REC Page 1 of 1 Name Value Range Interpretation Code Description Data Maura rce(s) Supporting Document(s) ID Date Data Source [id number] 05/02/2021 08:11:00 [place] [address] RESPIRATORY CARE REPORT ==== ---------NAME------- NUMBER SEX AGE ADMIT DISC. XRAY# F/C AUGUSTOJUSTYN AMAYACHANTALE E [id number] F 55 05/01/21 05/02/21 [id number] E/R DATE OF : 1965 M/R# [id number] PH#: [phone] TR- LOCATION: EMERGENCY DEPT EKG 08373 COMPLE TE:05/02/21 03:55 AJP 73378 EKG 68870 COMPLETE:05/02/21 03:55 AJP 21362 PHYSICIAN: WYATT Name Value Range Interpretation Code Description Data Maura rce(s) Supporting Document(s) ID Date Data Source [id number] 05/02/2021 01:21:00 [place] [address] PHONE: [phone] FAX: [phone] Name .................. : SOLOMON CHANTALE E Acct Number.................. : [id number] ROOM. ................. : TR-02 Number ................... : [id number] Stay type ............. : E/R Discharge Date......... ... : Admit Date ......... : 04/04 07/24 Admit Phys .................... : WYATT Date of ....... : 1965 Family Phys ................... : REGINE GAIL Phone .................. : [phone] Age ................................ : 55 Film# .................. .:[id number] Sex ................................. : F Unsigned transcriptions are preliminary reports and do not represent a medical or legal document CHEST PORTABLE 41223 COMPLETE:05/01/21 21:04 DLA 92941 Reason(s): Palpitation PORTABLE CHEST X- RAY: INDICATION: Palpitations. FINDINGS: There is a right-sided IJ port with the tip overlying the SVC. The right lung is clear. The left lung demonstrates stable white out. The cardiac silhouette is obscured. There is no acute osseous abnormality. Spinal fusion rods are noted in the thoracic spine. IMPRESSION: No acute pulmonary process. No significant change. Electronically Reviewed and Signed By Jimmy Ashby M.D. , 05/02/21 13:21, MARIA C Transcribe Initials: REYES , Transcribe Date: 05/02/21 00:37, Dictation Date: Copy for: EMERGENCY DEPT via mode Copy for: 710 MED REC DISCHARGED Page 1 of 1 Name Value Range Interpretation Code Description Data Maura rce(s) Supporting Document(s) ID Date Data Source [id number] 05/02/2021 01:30:00 AM EDT [facility] [address] [place] [address] ---------NAME--------- NUMBER SEX AGE ADMIT DISC. XRAY# F/C TYPE JUANITO Daniels [id number] F 55 05/01/21 [id number] BBF E/R DATE OF : 1965 M/R# [id number] #: [id number] TR-02 LOCATION: EMERGENCY DEPT TRANSCRIBED: 05/02/21 1:[address] CTA CHEST NON-CORONARY W [id number] COMPLETED:05/02/21 17 DLA 00041 Reason(s): chest oain palpitation elevated d dimer PHYSICIAN: WYATT ========= R A D I O L O G Y R E P O R T PATIENT HISTORY:ACTUAL DOSE 947.6 mGy*cm chest pain palpitations elevated d dimer isovue [id number] March 2023 was givenPatient hx menopause. Verification of 2 patient identifiers performed.Time Out performed. type and amount of contrast used, correct body part and sideall verified prior to examination. Exam has been sent to [facility] - If further informationis needed, the number is . Report will be faxed to ED and/orXray. / O-MAR, SOFT TISSUE, O-MAR. Compare with non-O-MAR images (DICOM Hx)EXAM: CTA Chest with Intravenous Contrast for PE evaluationCLINICAL HISTORY:ACTUAL DOSE 947.6 mGy*cm chest pain palpitations elevated ddimer isovue 370 75cc [id number] March 2023 was given Patient hx menopause.Verification of 2 patient identifiers performed. Time Out performed. type andamount of contrast used, correct body part and side all verified prior toexamination. Exam [facility] been [facility] to [facility] - If furtherinformation is needed, the number is . Report will be faxed to EDand/or Xray.TECHNIQUE: Axial CTA images of the chest with intravenous contrast using apulmonary embolism protocol. Multiplanar reconstructed images were created andreviewed. All CT scans at this facility use dose modulation, iterativereconstruction, and/or weight-based dosing when appropriate to reduce radiationdose to as low as reasonably achievable.CONTRAST:With; isovue 370 75cc [id number] 2023 was administered withoutincident.COMPARISON: CT - CT THORAX W/O CONTRAST - 08/06/20 05:23 EDTFINDINGS:PULMONARY ARTERIES:Grafting examination is limited by body habitus. There isalso artifact from spinal hardware. This limits evaluation of the segmentalpulmonary artery branches. No definite pulmonary embolus is seen. There ismoderate to large cardiomegaly. Some coronary artery calcifications are noted.There is a small pericardial effusion.AORTA: There is no evidence for aneurysm or dissection of the thoracic aorta.LUNGS:There is extensive mucous plugging throughout the left lung with extensiveconsolidation throughout the left lung. Some mild atelectasis is also notedthroughout both lungs.PLEURAL SPACES: No pneumothorax evident. No pleural effusions.HEART: Normal heart size. No significant pericardial effusion.LYMPH NODES: No lymphadenopathy is evident.BONES:Chronic compression deformities of the thoracic spine are noted statuspost laminectomy and fusion. No definite acute fracture is seen.UPPER ABDOMEN: Images of the upper abdomen are unremarkable.IMPRESSION:No definite pulmonary embolus.Extensive mucous plugging and pneumonia of the left lung.While performing the above CT examination, radiation dose reduction wasaccomplished utilizing automated exposure control, adjusting of the mA and kVbased on the patient's body size and/or the use of imperative reconstructivetechniques.Electronically Signed By:Jim Medrano MD , RadiologistDate/Time: 05/02/21 01:30 Name Value Range Interpretation Code Description Data Maura rce(s) Supporting Document(s) ID Date Data Source [id number] 05/01/2021 11:53:00 PM EDT [facility] Name Value Range Interpretation Code Description Data Maura rce(s) Supporting Document(s) [facility] COL[facility] yellow NORMAL: Yellow [facility] CLARITY clear NORMAL: Clear [facility] Specific gravity of Urine by Test strip 1.010 1.001 - 1.030 [facility] pH 6 5 - 9 [facility] al Glucose [Mass/volume] in Urine by Test strip NORM NORMAL: Negat [facility] Bilirubin.total [Presence] in Urine by Test strip NEG NORMAL: Negative [facility] Ketones [Presence] in Urine by Test strip NEG NORMAL: Negative [facility] Protein [Mass/volume] in Urine by Test strip [facility] Nitrite [Presence] in Urine by Test strip NEG NORMAL: Negative [facility] BLOOD NEG NORMAL: Negative [facility] LEUK EST NEG NORMAL: Negative [facility] Urobilinogen [Mass/volume] in Urine by Test strip NOR less lupe n 1.0 mg/dL [facility] MICROSCOPIC Not Indicate [facility] ID Date Data Source [id number] 05/01/2021 10:09:00 PM [facility] Value Range Interpretation Code Description Data Maura rce(s) Supporting Document(s) Thyrotropin [Units/volume] in Serum or Plasma by Detec tion limit <= 0.05 mIU/L 1.79 uIU/mL 0.47 - 5.01 [facility] ID Date Data Source [id number] 05/01/2021 09:56:00 PM T [facility] Value Range Interpretation Code Description Data Maura rce(s) Supporting Document(s) Fibrin D-dimer FEU [Mass/volume] in Platelet poor plasma 1.21 ug /mL 0.27 - 0.50 H [facility] ID Date Data Source [id number] 05/01/2021 10:11:00 PM T [facility] Value Range Interpretation Code Description Data Maura rce(s) Supporting Document(s) Magnesium [Mass/volume] in Serum or Plasma 1.6 MG/DL 1.7 - 2.2 L [facility] ID Date Data Source [id number] 05/01/2021 10:11:00 PM EDT [facility] Name Value Range Interpretation Code Description Data [facility](s) Supporting Document(s) COMPREHENSIVE METABOLIC PANEL [facility] COMPREHENSIVE METABOLIC PANEL Sodium [Moles/volume] in Serum or Plasma 140 mEq/L 134 - 153 [facility] Potassium [Moles/volume] in Serum or Plasma 3.7 mEq/L 3.6 - 5.0 [facility] Chloride [Moles/volume] in Serum or Plasma 102 mEq/L 98 - 107 [facility] Carbon dioxide, total [Moles/volume] in Serum or Plasma 30 MEQ/L 22 - 30 [facility] Glucose [Mass/volume] in Serum or Plasma 109 MG/DL 70 - 99 [facility] BUN 10 MG/DL 7 - [facility] Creat[facility] [Mass/volume] in Serum or Plasma 1.1 MG/DL 0.7 - 1.5 [facility] BUN/CREAT 9 8 - 27 [facility] al Protein [Mass/volume] in Serum or Plasma 6.0 G/DL 6.3 - 8.2 L [facility] Albumin [Mass/volume] in Serum or Plasma 3.1 G/DL 3.9 - 5.0 L [facility] Globulin [Mass/volume] in Serum by calculation 2.9 GM/DL 2.4 - 3.2 [facility] A/G RATIO 1.1 0.8 - 2.0 [facility] Calcium [Mass/volume] in Serum or Plasma 8.6 MG/DL 8.4 - 10.2 [facility] Bilirubin.total [Mass/volume] in Serum or Plasma <0.7 MG/DL 0.2 - 1.3 [facility] Alkaline phosphatase [Enzymatic activity/volume] in Serum or Plasma 92 U/L 38 - 126 [facility] Aspartate aminotransferase [Enzymatic activity/volume] in Serum or Plasma 26 U/L 5 - 40 [facility] Alanine aminotransferase [Enzymatic activity/volume] in Seru m or Plasma 24 U/L 7 - 56 [facility] Anion gap 3 in Serum or Plasma 8.0 mmol/L 8.0 - 16.0 [facility] AGE 55 yrs [facility] NON-AA GFR 55 mL/min [facility] willy AFR AMER GFR >60 mL/min [facility] Ho spital Male GFR In [...] >32 mL/min Normal ID Date Data Source [id number] 05/01/2021 10:05:00 PM EDT [facility] Name Value Range Interpretation Code Description Data Maura rce(s) Supporting Document(s) CBC W/AUTOMATED DIFF [facility] COMPLETE BLOOD COUNT Leukocytes [#/volume] in Blood by Automated count 8.4 10^3/uL 4.2 - 1 1.0 [facility] Erythrocytes [#/volume] in Blood by Automated count 2.90 10^6/uL 4. 20 - 5.40 L [facility] Hemoglobin [Mass/volume] in Blood 9.8 g/dL 12.0 - 16.0 L [facility] Hematocrit [Volume Fraction] of Blood by Automated count 30.2 % 3 7.0 - 47.0 L [facility] Erythrocyte mean corpuscular volume [Entitic volume] b y Automated count 104.1 fL 81.0 - 101 H [facility] Erythrocyte mean corpuscular hemoglobin [Entitic mass] by Automated count 33.8 pg 27.0 - 34.0 [facility] Erythrocyte mean corpuscular hemoglobin concentration [Mass/volume] by Automated count 32.5 g/dL 31.0 - 36.0 [facility] Erythrocyte distribution width [Ratio] by Automated count 18.6 % 11.5 - 14.5 H [facility] Platelets [#/volume] in Blood by Automated count 375 10^3/uL 150 - 45 0 [facility] Platelet mean volume [Entitic volume] in Blood by Automated count 9.9 fL 7.4 - 10.4 [facility] Neutrophils/100 leukocytes in Blood by Automated count 63.7 % 37. 0 - 80.0 [facility] Lymphocytes/100 leukocytes in Blood by Manual count 11.3 % 25.0 - 40.0 L [facility] Monocytes/100 leukocytes in Blood by Automated count 20.6 % 3.0 - 8.0 H [facility] Eosinophils/100 leukocytes in Blood by Automated count 2.7 % 0.0 - 7.0 [facility] Basophils/100 leukocytes in Blood by Automated count 0.4 % 0.0 - 2.5 [facility] %IG 1.3 % 0.0 - 0.0 H [facility] %NRBC 0.0 % 0.0 - 0.0 [facility] Neutrophils [#/volume] in Blood by Automated count 5.36 10^3/uL 2.00 - 6.90 [facility] Lymphocytes [#/volume] in Blood by Automated count 0.95 10^3/uL 0.60 - 3.40 [facility] Monocytes [#/volume] in Blood by Automated count 1.73 10^3/uL 0.00 - 0.90 H [facility] Eosinophils [#/volume] in Blood by Automated count 0.23 10^3/uL 0.00 - 0.70 [facility] Basophils [#/volume] in Blood by Automated count 0.03 10^3/uL 0.00 - 0.20 [facility] #IG 0.11 10^3/uL 0.00 - 0.10 H [facility] #NRBC 0.00 10^3/uL 0.00 - 0.00 [facility] ospital MANUAL DIFF SEE BELOW [facility] ital Segmented neutrophils/100 leukocytes in Blood by Manual count 62 % 37 - 80 [facility] %LYMPH 20 % 25 - 40 L [facility] %MONO 15 % 3 - 8 H [facility] %EOS 3 % 0 - 7 [facility] RBC MORPH NOT INDICATED [facility] spital ID Date Data Source [id number] 05/01/2021 09:29:00 PM EDT [facility] Name Value Range Interpretation Code Description Data Maura rce(s) Supporting Document(s) TROPONIN T 0.02 NG/ML 0.00 - 0.10 [facility] spital TROPONIN T0.1 ng/ml Recommended as the c linical threshold value forTroponin T. ID Date Data Source [id number] 04/30/2021 03:06:00 PM EDT [facility] ([facility], ) Name Value Range Interpretation Code Description Data Maura rce(s) Supporting Document(s) Gram Stain Laboratory test result Normal (applies to non-n umeric results) [facility] ([facility]) QUALITY: GOOD MODERATE WBCS FEW EPITHELIAL CELLS MODERATE GRAM POSITIVE COCCI IN PAIRS AND CHAINS FEW GRAM POSITIVE RODS Sputum Culture Laboratory test result Normal (applies to non-numeric results) [facility] ([facility]) <content>FULL REPORT IN LAB NOTES ([facility] a nd [facility]).</content>
<content>NORMAL JEROME PRESENT</content>
<content></content>
<content>ORGANISM 1: PSEUDOMONAS AERUGINOSA</content>
<content></content>
<content>QUANTITY OF GROWTH FEW</content>
<content></content>
<content></content>
<content></con tent>
<content>ORGANISM 1: PSEUDOMONAS AERUGINOSA</content>
<content></content>
<content>PSEUDOMONAS AERUGINOSA: REACTION</content>
<content>GENTAMICIN IV 80mg q8h <=1 S</content>
<content>LEVOFLOXACIN IV 500mg qd 0.5 S</content>
<content>LEVOFLOXACIN PO 250mg qd 0.5 S</content>
<content> LEVOFLOXACIN PO 500mg qd 0.5 S</content>
<content>TOBRAMYCIN IV 80mg q8h <=1 S</content>
<content>CEFTAZIDIME IV 1gm q8h 4 S</content>
<content>PIPERACILLIN/TAZOBACTAM IV 2.25 gm q6h 8 S</content>
<content>MEROPENEM IV 1 gm q8h 1 S</content>
<content>MEROPENEM IV 500 mg q8h 1 S</content>
<content>CEFEPIME IV 1 gm q12h <=1 S</content>
<content>CEFEPIME IV 2 gm q12h <=1 S</content>
<content></content> ID Date Data Source [id number] 04/24/2021 10:48:00 AM EDT [facility] [address] [place] [address] PHONE: [phone] FAX: [phone] Name .................. : JUANITO ROMAN eJremiah Acct Number.................. : [id number] ROOM. ................. : TR-03 Number ................... : [id number] Stay type ............. : E/R Discharge Date......... ... : 04/21/21 Admit Date ......... : 04/21/21 Admit Phys .................... : USMAN LOPEZ Date of ....... : 1965 Family Phys ................... : REGINE GAIL Phone .................. : [phone] Age ................................ : 55 Film# .................. .:[id number] Sex ................................. : F Unsigned transcriptions are preliminary reports and do not represent a medical or legal document CHEST PORTABLE [id number] COMPLETE:04/21/21 11:56 73915 Reason(s): COPD PORTABLE CHEST X-RAY: INDICATION: COPD. FINDINGS: There is a right IJ port. The right lung is moderately expanded with a trace pleural effusion. There is stable complete opacification of the left hemithorax. The cardiac silhouette is obscured. There is evidence of prior fusion hardware in the thoracic spine. No acute osseous abnormality. IMPRESSION: No significant change in tiny right pleural effusion and complete opacification of the left hemithorax. Electronically Reviewed and Signed By Jimmy Ashby M.D. , 04/24/21 10:48, [place] Transcribe Initials: DZ , Transcribe Date: 04/21/21 15:31, Dictation Date: Copy for: [place]ERGENC[place]PT [place] [facility] Copy for: 710 MED REC DISCHARGED Page 1 of 1 Name Value Range Interpretation Code Description Data Maura rce(s) Supporting Document(s) ID Date Data Source [id number] 04/19/2021 09:17:00 [place] [address] PROGRESS NOTENAME: JUANITO Daniels ROOM#: [id number] OF : 1965 MR#: [id number] DATE: 04/17/21 OF SERVICE: 04/19/2021UBJECTIVE:Chantale Solomon was admitted with atrial fibrillation and she is on Multaq 400 bid. The patient isalso on Cardizem-CD 180 daily. [place] of tiredness and fatigue. She claims that she got rapidheart rate when she walked in the [place]. Patient denies any chest pain or dyspnea. She has known historyof COPD, uses oxygen most of the time.REVIEW OF SYSTEMS:CONSTITUTIONAL: The patient reports no anorexia, fever, night sweats, systemic illness, or recent weightgain/loss.HEAD: No head trauma or headaches.EYES: No blurred or double vision.ENT: No hearing loss, epistaxis, dysphagia, or sinus congestion.RESPIRATORY: No cough, HILL, wheezing, hemoptysis, sputum production, or SOB.CARDIOVASCULAR: No chest pain, rapid or irregular heartbeat, orthopnea, PND, or lower extremityedema.GI: No nausea, vomiting, abdominal pain, or change in bowel habits.: No pain with urination, urgency or frequency, blood in urine, difficulty starting or stopping urinarystream, urinary infection, stones, or cysts.MUSCULOSKELETAL: No arthritis, joint swelling, or joint stiffness.NEUROLOGIC: No dizziness, syncope, or weakness.ENDOCRINE: No excessive urination or excessive thirst.OBJECTIVE:GENERAL: Moderately built.VITAL SIGNS: Blood pressure 110/80.HEENT: Head is normal.HEART: Regular sinus rhythm.LUNGS: Scattered rhonchi.ABDOMEN: Soft.EXTREMITIES: Normal.LABORATORY DATA:WBC 7.3, RBC 2.79, hemoglobin 9.4, hematocrit 28.4, MCV 101.8, MCH 33.7, MCHC 33.1, RDW18.3, platelets 193, MPV 8.8. Sodium 136, potassium 4.3, chloride 101, CO2 27, glucose 108, BUN13, creatinine 0.8, BUN/creatinine 16, total protein 5.4, albumin 3.3, globulin 2.1, A/G ratio 1.6,calcium 8.7. [address] [place] [address] PROGRESS NOTENAME: JUANITO Daniels ROOM#: [id number] OF : 1965 MR#: [id number] DATE: 04/17/21 /PLAN:The patient has the following issues:1. Anemia, hemoglobin 9.4. Plan is to do a serum iron level, give IV Venofer and Procrit 20,000 subcu.2. Hypomagnesemia, low magnesium. Plan to give 2 g of mag sulfate IV over one hour.3. Atrial fibrillation, recurrent. Plan is to monitor for another 48 hours with Multaq 400 bid.4. Monitor the orthostatic blood pressure twice a day. Patient complains of some dizziness when she stands up. We will monitor orthostatic blood pressure readings and hold the Lasix today.DD: Osmel Alvarez MD, RAYMUNDO 04/19/21 09:03DT: SSR 04/19/21 09:17DS: Osmel Alvarez MD, PC 04/23/21 08:33 2 Name Value Range Interpretation Code Description Data Maura rce(s) Supporting Document(s) ID Date Data Source [id number] 04/18/2021 11:15:00 [place] [address] HISTORY AND PHYSICALNAME: JUANITO Daniels ROOM#: [id number] OF : 1965 MR#: [id number] PHYS: Osmel Alvarez MD, PC DATE: 04/17/21CHIEF COMPLAINT:This is a 55-year-old white female who presented with recurrent atrial fibrillation.HISTORY OF PRESENT ILLNESS:She came to the emergency room with palpitations, dyspnea, dizziness. She claims that she is very dizzy, hassignificant palpitations. She came to the emergency room, where she was given Cardizem IV and converted toregular sinus rhythm. She went home, she again had palpitations, and she came back, and she was admitted forrecurrent atrial fibrillation. Known history of atrial fibrillation, history of coronary artery disease, history ofcarcinoma left lung. Patient complains of dyspnea on minimal exertion. She is on oxygen most of the time.There is no orthopnea, paroxysmal nocturnal dyspnea. No chills or fever.REVIEW OF SYSTEMS:CONSTITUTIONAL: The patient reports no anorexia, fever, night sweats, systemic illness, or recent weightgain/loss.HEAD: No head trauma or headaches.EYES: No blurred or double vision.ENT: No hearing loss, epistaxis, dysphagia, or sinus congestion.RESPIRATORY: No cough, HILL, wheezing, hemoptysis, sputum production, or SOB. Patient has a historyof carcinoma left lung, goes to [facility] cancer specialist. She is getting also chemotherapy everythree weeks, she had chemotherapy three days ago.CARDIOVASCULAR: Patient complains of palpitations, rapid heartbeat, and atrial fibrillation.GI: No nausea, vomiting, abdominal pain, or change in bowel habits.: No pain with urination, urgency or frequency, blood in urine, difficulty starting or stopping urinarystream, urinary infection, stones, or cysts.MUSCULOSKELETAL: No arthritis, joint swelling, or joint stiffness.NEUROLOGIC: No dizziness, syncope, or weakness.ENDOCRINE: No excessive urination or excessive thirst.PAST MEDICAL HISTORY:Patient has history of pulmonary embolus, admitted on 08/05/20 for paroxysmal atrial fibrillation, history ofcarcinoma left lung status post chemotherapy and radiation. History of COPD, history of pancytopenia,thrombocytopenia, anemia. She has history of hypertension. She has been admitted for pneumonia [facility].PAST SURGICAL HISTORY: 1. Appendectomy. 2. Surgery dorsal spine. [address] [place] [address] HISTORY AND PHYSICALNAME: JUANITO Daniels ROOM#: [id number] OF : 1965 MR#: [id number] PHYS: Osmel Alvarez MD, PC DATE: 04/17/21 3. Tonsillectomy. 4. Tubal ligation.FAMILY HISTORY:Father from stroke, he had diabetes mellitus. Mother is alive with COPD.PERSONAL HISTORY:Nonsmoker. Was smoking a couple of years ago.ALLERGIES:PENICILLIN, SEAFOOD.PHYSICAL EXAM:GENERAL: Moderately built.VITAL SIGNS: Blood pressure 130/80, pulse 110, respirations 18, temperature 98.HEENT: Head is normal. Fundus normal. Mouth is normal.NECK: Supple. No lymphadenopathy. Thyroid not enlarged. Neck veins are not distended. No carotidbruits.CHEST: Symmetrical.HEART: Regular sinus rhythm. No murmur or gallop.LUNGS: Clear. No rales or rhonchi.ABDOMEN: Soft. Nonten regine.EXTREMITIES: Normal. Peripheral pulses palpable.LABORATORY DATA:X-ray of the chest shows increased left lung consolidation, likely atelectasis seen from carcinoma ofleft lung. WBC 8.9, RBC 3.08, hemoglobin 10.3, hematocrit 31.2, MCV 101.3, MCH 33.4, MCHC 33,RDW 18.5, platelets 244, MPV 8.5. Sodium 141, potassium 4.3, chloride 101, CO2 31, glucose 101,BUN 14, creatinine 0.8, BUN/creatinine 18, total protein 5.5, albumin 3.5, globulin 2, A/G ratio 1.8,calcium 8.8. Patient's EKGs were reviewed. The first EKG when she presented to the ER was atrialfibrillation with rapid ventricular rate. She converted with IV Cardizem.IMPRESSION:1. Paroxysmal atrial fibrillation, recurrent.2. Anemia, hemoglobin 11.8.3. History of carcinoma left lung with atelectasis, consolidation of the left lung.4. History of pneumonia. [address] [place] [address] HISTORY AND PHYSICALNAME: JUANITO Daniels ROOM#: [id number] OF : 1965 MR#: [id number] PHYS: Osmel Alvarez MD, PC DATE: . History of COPD.6. History of thrombocytopenia.7. History of hypertension.PLAN:Patient will be monitored closely because she had atrial fibrillation twice last night with rapidventricular rate. We will monitor closely and start Multaq 400 bid, see if she responds to that. We willdo continuous monitoring with Telemetry monitoring for evaluation of atrial fibrillation.DD: Osmel Alvarez MD, PC 04/18/21 09:29DT: [facility] 04/18/21 11:15DS: Osmel Alvarez MD, PC 04/23/21 08:33 3 Name Value Range Interpretation Code Description Data Maura rce(s) Supporting Document(s) ID Date Data Source [id number] 04/22/2021 10:11:00 [place] [address] RESPIRATORY CARE REPORT ==== ---------NAME------- NUMBER SEX AGE ADMIT DISC. XRAY# F/C CYNDY Daniels [id number] F 55 04/21/21 04/21/21 [id number] BBF E/R DATE OF : 1965 M/R# [id number] #: [id number] TR-03 LOCATION: EMERGENCY DEPT EKG 50015 COMP LETE:04/22/21 04:41 AJP [id number] PHYSICIAN: USMAN LOPEZ Name Value Range Interpretation Code Description Data Maura rce(s) Supporting Document(s) ID Date Data Source [id number] 04/21/2021 11:41:00 AM EDT [facility] 1 OrderSheet [facility] Emergency Department [address] [place] [address] Phone #: ext- [phone] 04/21/2021 11:25 Patient: CHANTALE SOLOMON Sex: F : 1965 Age: 55yWEIGHT:79.3 kg (S) HEIGHT:60 inches (S) BMI:34.1ALLERGIES: Penicillins, SeafoodCHIEF COMPLAINT: fast heart rateDIAGNOSIS: Atrial fibrillation, Chronic obstructive lung disease, Malignant tumor of lung, HypomagnesemiaLAB ORDERSOrder Description Priority Entered Acknowledged InitialedCBC w Diff STAT 11:56 04/21/2021 11:58 Tadeo Peck R.N. Physician;CMP STAT 11:56 04/21/2021 11:58 Tadeo Peck R.N. Physician;Troponin-T STAT 11:56 04/21/2021 11:59 Kody Ritchie operations professionalFlorian Del Rosario Physician; [id number] STAT 11:56 04/21/2021 11:58 Tadeo Peck R.N. Physician;Urinalysis (Clean STAT 11:56 04/21/2021 12:33 BurnhamCatch) Tadeo Ritchie operations professionalFlorian Del Rosario ER Physician; [id number] STAT 11:56 04/21/2021 11:58 Tadeo Peck R.N. Physician;Magnesium STAT 11:56 04/21/2021 11:58 Tadeo Peck R.N. Physician;DIAGNOSTIC STUDY ORDERSOrder Description Priority Entered Acknowledged InitialedChest Portable 1 STAT 11:56 04/21/2021 12:14 Cisco,Marysol Jacob R.N.(Oxygen?(No)) Physician; Reason for Study: COPDMEDICATION/IV/DRIP/FLUID ORDERSOrder Description Priority Entered Acknowledged Initialed 2 OrderSheet [facility] Emergency Department [address] [place] [address] Phone #: ext- [phone] 04/21/2021 11:25 Patient: CHANTALE SOLOMON Sex: F : 1965 Age: 55yCardizem IVP 10 11:56 04/21/2021 Cancelled: Physician Order 12:15mg (NOW) Nidia Silver R.N. Physician;Magnesium Sulfate 12:43 04/21/2021 12:52 Cisco,IVPB 1 gm (Verify Tadeo Jacob R.N.Strength in Physician;Omnicell, HIGHALERTMEDICATION,NOW)Metoprolol PO 14:38 04/21/2021 14:47 Cisco,12.5mg (NOW x1) Tadeo Jacob R.N. Physician;GENERAL ORDERSOrder Description Priority Entered Acknowledged InitialedEKG 11:56 04/21/2021 11:58 Tadeo Peck R.N. Physician;[Electronically signed by Nidia Peck R.N. (15:07 0 04/21/2021)][Electronically signed by Tadeo Ritchie (15:08 04/21/2021)][Electronically locked by Nidia Peck R.N. (15:07 04/21/2021)] Name Value Range Interpretation Code Description Data Maura rce(s) Supporting Document(s) ID Date Data Source [id number] 04/21/2021 11:41:00 AM EDT [facility] 1 Medication Reconciliation Report [facility] Emergency Department [address] [place] [address] Phone #: ext- [phone] 04/21/2021 11:25 Patient: CHANTALE SOLOMON Sex: F : 1965 Age: 55yWeight: 79.3 kgHeight/Length: 60 in.BMI: 34.1ALLERGIES: Penicillins, SeafoodThe patient's Home Medications are listed below:CONTINUE TAKING THE FOLLOWING MEDICATIONS: Breo Ellipta Inhalation 1 puff, daily dilTIAZem HCl Oral 180 mg, daily, at bedtime Folic Acid Oral (800 mcg) 1 tablet, daily Furosemide Oral 20 mg, daily Magnesium Oral 1000mg , daily Multaq Oral (400 mg), 2x a day Pantoprazole Sodium Oral 40 mg, daily Potassium Oral 10 meq, 2x a day Spiriva HandiHaler Inhalation 2 puffs, daily Xarelto Oral (10 mg) 1 tablet, dailyThe source(s) of the original Home Medication information:Not obtained.The following Medications were given to the patient in the Emergency Department:Magnesium Sulfate [IVPB] IVPB bolus 0, then 1 gm 50 mL/hr, administered: 12:52 04/21/2021Metoprolol [PO] PO 12.5 mg, administered: 14:47 04/21/2021 2 Medication Reconciliation Report [facility] Emergency Department [address] [place] [address] Phone #: ext- [phone] 04/21/2021 11:25 Patient: CHANTALE SOLOMON Sex: F : 1965 Age: 55yThe following Medications were prescribed to the patient:metoprolol tartrate 25 mg tablet Take 1/2 tablet twice a day for 30 days -- Dispense 30 tablet. Refills: 0.Substitution permitted.Pharmacy - [facility][id number] - [address] [facility] ; [place], [place] [id number]. . -- Tadeo Ritchie, Physician Name Value Range Interpretation Code Description Data Maura rce(s) Supporting Document(s) ID Date Data Source [id number] 04/21/2021 11:41:00 AM EDT [facility] 1 Medication Administration Record [facility] Emergency Department [address] [place] [address] Phone #: ext- [phone] 04/21/2021 11:25 Patient: CHANTALE SOLOMON Sex: F : 1965 Age: 55yWeight: 79.3 kgHeight/Length: 60 inBMI: 34.1ALLERGIES: Penicillins, Seafood Date/Time Medication Administered Medication OrderedStart MAGNESIUM SULFATE [IVPB] Magnesium Sulfate IVPB 1 gm12:52 04/21/2021 Dose: 1 gm IVPB (Verify Strength in Sarah Reardon Rachel, R.N. Rate: 50 mL/hr over 30 minute(s) ALERT MEDICATION, NOW)---- Dispensed: 25 mL bagStop Site: #1 left AC13:30 04/21/2021Nidia Peck, R.NKellenGiven METOPROLOL [PO] Metoprolol PO 12.5mg (NOW x1)14:47 04/21/2021 Dose: 12.5 mg Nidia Sanders R.N. Name Value Range Interpretation Code Description Data Maura rce(s) Supporting Document(s) ID Date Data Source [id number] 04/21/2021 11:41:00 AM EDT [facility] 1 General Instructions [facility] Emergency Department [address] [place] [address] Phone #: ext- [phone] 04/21/2021 11:25 Patient: CHANTALE SOLOMON Sex: F : 1965 Age: 55yParoxysmal atrial fibrillation.Metastatic left lower lobe lung cancer.Stable COPD. No acute COPD.Mild hypomagnesemia.INSTRUCTIONSWarnings: GENERAL WARNINGS: Return or contact your physician immediately if your conditionworsens or changes unexpectedly, if not improving as expected, or if other problems arise.Your Current Medications: Your current home medications have been reviewed.CONTINUE TAKING THE FOLLOWING MEDICATIONS:Breo Ellipta Inhalation : 1 puff daily.dilTIAZem HCl Oral : 180 mg daily, at bedtime.Furosemide Oral : 20 mg daily.Multaq Oral : Tablet 400 mg, 2x a day.Pantoprazole Sodium Oral : 40 mg daily.Potassium Oral : 10 meq 2x a day.Spiriva HandiHaler Inhalation : 2 puffs daily.Xarelto Oral : Tablet 10 mg, 1 tablet daily.Folic Acid Oral : Tablet 800 mcg, 1 tablet daily.Magnesium Oral : 1000mg daily.Prescription Medications:metoprolol tartrate 25 mg tablet Take 1/2 tablet twice a day for 30 days -- Dispense 30 tablet. Refills: 0.Substitution permitted.Pharmacy - [id number] - [address] [place], [place] [id number]. FaxNumber: .Understanding of the discharge instructions verbalized by patient.Follow-up with: Osmel Alvarez MD, Cardiology, , [address] [place] [address], [facility] Follow up as scheduled. Reason for referral: evaluation. Summary of care provided to patient via paper. ADDITIONAL INFORMATIONAbout Arrhythmias 2 General Instructions [facility] Emergency Department [address] [place] [address] Phone #: ext- [phone] 04/21/2021 11:25 Patient: CHANTALE SOLOMON Sex: F : 1965 Age: 55yElectrical impulses cause the normal heart to beat 60 to 100 times a minute while at rest. Theseimpulses come from a natural pacemaker called the sinus node. It is, inside the right upper heartchamber. Electrical impulses travel throughout the upper heart chambers (the atria) before reachingthe bottom muscle chambers ((the ventricles) through an electrical connection called the AV node.Each impulse causes the heart muscle to contract. This causes the blood to flow through the heartand out to the tissues and organs of your body.An arrhythmia is a change from the normal speed or pattern of these electrical impulses. This cancause the heart to beat too fast (tachycardia), too slow (bradycardia), or in an unsteady pattern(irregular rhythm).Symptoms of arrhythmiasDifferent people experience arrhythmias differently. And different arrhythmias can cause differentsymptoms. Sometimes you may not have symptoms, but just notice a change in your pulse.Symptoms can include: Fluttering feeling in the chest Shortness of breath Chest pain or pressure 3 General Instructions [facility] Emergency Department [address] [place] [address] Phone #: ext- [phone] 04/21/2021 11:25 Patient: CHANTALE SOLOMON Sex: F : 1965 Age: 55y Neck fullness Lightheadedness or dizziness Fainting or almost fainting Palpitations. This is the sense that your heart is fluttering or beating fast or hard or irregularly. Tiredness, fatigue, or weakness Cardiac arrest, and , in serious arrhythmiasCauses of arrhythmiasArrhythmias are most often caused by heart disease, such as: Coronary artery disease ("blocked arteries") Heart valve disease Enlarged heart High blood pressure Heart failureOther causes of arrhythmia include: Certain medicines such as asthma inhalers and decongestants Some herbal supplements Cardiac stimulant drugs such as cocaine, amphetamine, and diet pills, and certain decongestant cold medicines, caffeine, and nicotine Heavy use of alcohol Anxiety and panic disorder Thyroid disease Anemia Diabetes Sleep apnea Obesity Congenital heart disease 4 General Instructions [facility] Emergency Department [address] [place] [address] Phone #: ext- [phone] 04/21/2021 11:25 Patient: CHANTALE SOLOMON Sex: F : 1965 Age: 55y Cardiac genetic diseases Electrolyte imbalance. Electrolytes are substances that help regulate normal heartbeat., High or low levels of certain electrol ytes such as potassium or magnesium may affect the heartbeat and contribute to arrhythmia.Arrhythmias can often be prevented. The cause and type of arrhythmia determines the besttreatment. Sometimes your doctor may want to monitor your heart rate over a 24-hour period orlonger. This can help find the cause of your arrhythmia and find the best treatment. This can be donewith a Holter monitor. This is a portable electrocardiogram (ECG) recording device attached by wiresto your chest. Or you may get an event monitor, which you can place over the skin in front of yourheart to record heart rhythms. You can carry this with you as you go about your routine activitiesduring the monitoring period. Implantable loop recorders may also be used to monitor the heartrhythm for up to 3 years. This miniature device is placed underneath the skin over the heart.Home careThese guidelines will help you care for yourself at home: Stay away from cardiac stimulants such as cocaine, amphetamine, diet pills, certain decongestant cold medicines, caffeine, and nicotine. If you smoke, stop smoking. Contact your doctor or a local stop-smoking program for help. Tell your doctor about any prescription, qxrk-pfs-cwnozoh, or herbal medicines you take. These may be affecting your heart rhythm.Follow-up careFollow up with your healthcare provider, or as advised. If a Holter monitor has been recommended,contact the faith doctor you have been referred to as soon as you can pickling grader the device. Otheroutpatient tests may also be arranged for you at that time.Call 911This is the fastest and safest way to get to the emergency department. The paramedics can also starttreatment on the way to the hospital, if needed.Don't wait until your symptoms are severe to call 911. Other reasons to call 911 besides chest paininclude: Chest pain radiating to the shoulder, arm, neck, or back. Shortness of breath Feeling lightheaded, faint, or dizzy 5 General Instructions [facility] Emergency Department [address] [place] [address] Phone #: ext- [phone] 04/21/2021 11:25 Patient: CHANTALE SOLOMON Sex: F : 1965 Age: 55y Unexplained fainting Rapid heart beat Slower than usual heart rate compared to your normal Very irregular heartbeat Chest pain (angina) with weakness, dizziness, heavy sweating, nausea, or vomiting Extreme drowsiness, or confusion Weakness of an arm or leg or one side of the face Trouble with speech or visionWhen to seek medical adviceRemember, things are not always like they are on TV. Sometimes it is not so obvious. You may onlyfeel weak or just "not right." If it is not clear or if you have any doubt, call for advice. Seek help for chest pain, or if something feels different from usual, even if your symptoms are mild. Don't drive yourself. Have someone else drive. If no one can drive you, call 911. If your doctor has given you medicines to take when you have symptoms, take them, but don't delay getting help while trying to find them. [employer]. [address] [place] [address]. All rights reserved. This information is not intended as asubstitute for professional medical care. Always follow your healthcare professional's instructions. You have been given the following additional information: About Arrhythmias(Electronically signed by Tadeo Ritchie, Physician 04/21/2021 15:08) Name Value Range Interpretation Code Description Data Maura rce(s) Supporting Document(s) ID Date Data Source [id number] 04/21/2021 11:41:00 AM EDT [facility] 1 Clinical Report - Nurses [facility] Emergency Department [address] [place] [address] Phone #: ext- [phone] 04/21/2021 11:25 Patient: CHANTALE SOLOMON Sex: F : 1965 Age: 55yTRIAGE( pt came to door stating "I am in Afib", was seen her Friday and admitted discharged yesterday, statesher hr was up to 160 via her pulse out,, states she is short of breath and racing heart, and has a feeling inher thraot).Acuity: LEVEL 3.Alert.This started today. Onset. (10 minutes ago).Treatment STOCKROOM ATTENDANT:None.SEPSIS SCREEN: SIRS SCREEN NEGATIVE. SEPSIS SCREEN NEGATIVE. No suspected or confirmedsigns of infection present. --11:31 04/21/21 Orin Pierson R.N.11:26 04/21/21. BP: 108/78. MAP: 88. HR: 156. RR: 24. O2 saturation: 100% on nasal cannula at 2liters/minute. Temp: 97.5 F. Pain level now: 0. --11:31 04/21/21 Orin Pierson R.N.Chief Complaint: (a fib). --11:32 04/21/21 Orin Pierson R.N.Weight: 79.3 kg stated. Height/Length: 60 inches Per Patient. BMI: 34.1. --11:26 04/21/21 Orin Pierson R.N.MedicationsBreo Ellipta Inhalation 1 puff, daily. dilTIAZem HCl Oral 180 mg, daily at bedtime. Folic Acid Oral (Tablet 800 mcg) 1 tablet, daily. Furosemide Oral 20 mg, daily. Magnesium Oral 1000mg , daily. Pantoprazole Sodium Oral 40 mg, daily. Potassium Oral 10 meq, 2x a day. Spiriva HandiHaler Inhalation 2 puffs, daily. Xarelto Oral (Tablet 10 mg) 1 tablet, daily. --11:46 04/21/21 Orin Pierson R.N. Multaq Oral (Tablet 400 mg), 2x a day. --11:46 04/21/21 Orin Pierson R.N.AllergiesPenicillins. --11:46 04/21/21 Orin Pierson R.N.Seafood. --11:46 04/21/21 Orin Pierson R.N.PROBLEMS:DVT - Deep Venous Thrombosis. 2 Clinical Report - Nurses [facility] Emergency Department [address] [place] [address] Phone #: ext- [phone] 04/21/2021 11:25 [id number] Sex[facility] F : 1965 Age: 55yCOPD - Chronic Obstructive Pulmonary Disease.Heart Disease.Hypertension.Hemoptysis.Atrial Fibrillation.Anemia.Back Injury.Chronic Back Pain.Cancer.Hypokalemia.Pulmonary Embolism.Pneumonia.Reflux.TIA - Transient Ischemic Attack.Spinal Fracture.Lung Cancer.Lower Extremity Pain.Intervertebral Disc Disease.Metabolic disease: (Bone).Palpitations. --11:48 04/21/21 Orin Pierson R.N.ADDITIONAL SURGERIES:Appendectomy.Back Surgery (Rods in t spine, crushed t7 t8).Dilatation Curettage.Foot surgery.Heel spur.Right heel spur.Septoplasty.Septoplasty.Tonsillectomy.Tubal Ligation. --11:48 04/21/21 Orin Pierson R.N.HistoryPAST MEDICAL HX: Immunizations: up-to-date. The patient is post-menopausal.SOCIAL HX: Smoker- current status unknown (quit 2017). Occasional alcohol use. She was offered HIVtesting but declined and hepatitis C testing but declined. She has not traveled outside the [place]Infectious disease exposure: No infectious disease exposure. The patient was not exposed to Coronavirus.Patient is not a known carrier of tuberculosis, hepatitis, HIV, MRSA or VRE. Patient is not a known carrierof CRE.SELF HARM ASSESSMENT: Self harm assessment was performed. The patient answered "no" to thequestion(s) "Have you recently felt down, depressed, or hopeless?", "Do you have thoughts of harming orkilling yourself?", "Do you have a plan for harming or killing yourself?", "Have you recently had thoughts 3 Clinical Report - Nurses [facility] Emergency Department [address] [place] [address] Phone #: ext- [phone] 04/21/2021 11:25 Patient: CHANTALE SOLOMON Sex: F : 1965 Age: 55y about harming or killing others?", "Do you have any dangerous items in your possession?", "Have you noticed less interest or pleasure in doing things?", & quot;Are you here because you tried to hurt yourself?" and "Have you ever tried to hurt yourself before today?". ABUSE ASSESSMENT: Abuse assessment. Abuse denied. No suspicion of abuse. No report of abuse. NUTRITIONAL RISK ASSESSMENT: The nutritional risk assessment revealed no deficiencies. FUNCTIONAL ASSESSMENT: Functional assessment: no impairments noted. LEARNING NEEDS ASSESSMENT: The learning needs assessment revealed no barriers. FALL RISK ASSESSMENT: Fall risk assessment completed. No risk factors identified. SKIN INTEGRITY ASSESSMENT: Skin integrity risk assessment completed. No skin integrity risk identified. --11:04/21/21 Orin Pierson R.N. FAMILY HX: Negative (CVA,DM and COPD in family). --12:02 04/21/21 Tadeo Ritchie, Physician. Interventions Identification band on patient. To treatment room. Advanced care plan (full code). --11:04/21/21 Orin Pierson R.N.PHYSICAL ASSESSMENTAmbulatory to room.GENERAL / NEURO / PSYCH: Alert. Oriented X 4. Appears in no acute distress.HEENT: Pupils equal, round and reactive to light. No facial asymmetry noted. Mucous membranes arepink.RESPIRATORY: Respirations not labored. Chest nontender. Breath sounds within normal limits.CVS: Cardiac rhythm: atrial fibrillation; (156). Capillary refill less than 2 seconds.GI / : Abdomen soft and nontender and normal bowel sounds.SKIN: Skin intact. Skin is warm and dry. Normal skin turgor. --11:45 04/21/21 Nidia Peck R.N.NURSING PROGRESS NOTESOxygen administered at 2 liters. radiation physicist and NIBP monitor placed on patient. Patient gowned.Reassurance given. Two patient identifiers checked. Call light placed in reach. Side rails up x 2. Bedplaced in lowest position. Brakes of bed on. Patient ready for evaluation. --11:31 04/21/21 Orin Pierson R.N. EKG time: (11:30 04/21/2021). EKG was performed by a tech and shown to the ED physician. --11:39 04/21/21 [place] operations professional, MEG Du Tech1 12:04 04/21/2021 Site #1 started via IV in the left antecubital space with an 20g angiocath; one attempt. Blood drawn: rainbow set and green tube(s). Saline lock flushed with 10 mL saline. --12:05 04/21/21 4 Clinical Report - Nurses [facility] Emergency Department [address] [place] [address] Phone #: ext- [phone] 04/21/2021 11:25 Patient: CHANTALE SOLOMON Sex: F : 1965 Age: 55y Nidia Peck R.N. 12:10 04/21/21. EKG time: (12:10 04/21/2021). EKG was performed by a nurse and shown to the ED physician. ( PT converted back to normal sinus rhythm prior to cardizem. Dr. Ritchie informed and order canceled.). --12:17 04/21/21 Nidia Peck R.N. 12:52 04/21/2021 Started 1 gm of Magnesium Sulfate IVPB in bag #1 25 mL; at 50 mL/hr over 30 minute(s) via site #1. via IV pump. Allergies verified and confirmed 5 rights. IV patency established. IV site checked: no pain, redness, or swelling. IV flushed thoroughly pre- and post-medication administration. Information reviewed with patient including reason for taking this medication. Verbalizes understanding. --12:52 04/21/21 Nidia Peck R.N. The patient is calm and resting quietly. - -14:31 04/21/21 Nidia Peck R.N. 13:30 04/21/21. The patient is calm. Informed about plan of care. --14:31 04/21/21 Nidia Peck R.N. 14:47 04/21/2021 Metoprolol PO 12.5 mg given. Allergies verified and confirmed 5 rights. Information reviewed with patient including reason for taking this medication. Verbalizes understanding. --14:47 04/21/21 Nidia Peck R.N.DISPOSITION / DISCHARGE 13:30 04/21/2021 Magnesium Sulfate IVPB via IV site #1 Discontinued: bag #1 completed upon discharge. Total amount infused: 25 mL. IV patency established. IV site checked: no pain, redness, or swelling. IV flushed thoroughly. --15:07 04/21/21 Nidia Peck R.N. 15:07 04/21/2021 Site #1 removed upon discharge. Catheter intact. Manual pressure and bandage applied. --15:07 04/21/21 Nidia Peck R.N. Condition at departure: stable. No learning barriers present. Discharge instructions provided and reviewed with the patient. Reviewed medication(s) side effects, precautions, dosing and course information. Prescription(s) sent electronically to pharmacy. Reviewed referral to a faith doctor. Patient verbalized understanding. Written instructions provided in Lithuanian. The patient was discharged by the physician. She was discharged home and accompanied by spouse. She left ambulatory and via private vehicle. Spouse driving. --15:07 04/21/21 Nidia Peck R.N. 15:04/21/21. BP: 118/70 taken on the right arm, manually. MAP: 86. HR: 96. RR: 18. O2 saturation: 96% on nasal cannula at 2 liters/minute. Temp: 98.1 F. Pain level now: 0/10. --15:07 04/21/21 Nidia Peck R.N.Locked/Released at 04/21/2021 15:07 by Nidia Peck R.N. 5 Clinical Report - Nurses [facility] Emergency Department [address] [place] [address] Phone #: ext- [phone] 04/21/2021 11:25 Patient: CHANTALE SOLOMON Sex: F : 1965 Age: 55y Name Value Range Interpretation Code Description Data Maura rce(s) Supporting Document(s) ID Date Data Source [id number] 04/21/2021 11:41:00 AM EDT [facility] 1 Clinical Report - Physicians/Mid Levels [facility] Emergency Department [address] [place] [address] Phone #: ext- [phone] 04/21/2021 11:25 Patient: CHANTALE SOLOMON Sex: F : 1965 Age: 55y Time Seen: 11:47 04/21/2021. Arrived- By private vehicle. Historian- patient. Disposition decision: 14:47 04/21/2021.HISTORY OF PRESENT ILLNESS Chief Complaint: FAST HEART RATE Atrial Fibrillation. This started just prior to arrival and is still present. Onset during rest. History of caffeine use prior to onset. No history of decongestants use prior to onset, cocaine use prior to onset or amphetamine use prior to onset. It is described as a fast heart beat. She did not lose consciousness. She did not feel like might "pass out". Not described as dizziness or weakness. Modifying factors. Not worsened by anything. Not relieved by anything. No chest pain or discomfort, difficulty breathing, sweating episodes or fainting episodes. No dizziness, tingling or muscle spasms. ( Tightness in throat.). Treatment STOCKROOM ATTENDANT: (Took regular medications). Similar symptoms previously. Recent medical care: The patient was seen recently and hospitalized. ( just released yesterday from hospital for A Fib.).REVIEW OF SYSTEMSNo fever, chills, cough, orthopnea or calf pain. No enlarged lymph nodes, headache, sore throat, blurredvision or nausea. No abdominal pain, black stools, difficulty with urination, skin rash or depression. Notrouble sleeping, diarrhea or bloody stools. The patient has not had a poor appetite. All other systemsreviewed and are negative.PAST HISTORYAtrial fibrillation.SOCIAL HISTORYFormer smoker. No alcohol use or drug use.FAMILY HISTORYNegative (CVA,DM and COPD in family).ADDITIONAL NOTESThe nursing notes have been reviewed with agreement regarding the chief complaint, HPI, ROS, PMH andpatient medications and allergies.PHYSICAL EXAMAppearance: Alert. Oriented X3. Patient in mild distress.Eyes: Pupils equal, round and reactive to light. Eyes normal inspection. 2 Clinical Report - Physicians/Mid Levels [facility] Emergency Department [address] [place] [address] Phone #: ext- [phone] 04/21/2021 11:25 Patient: CHANTALE SOLOMON Sex: F : 1965 Age: 55y ENT: Ears normal. Nose normal. Pharynx normal. Neck: Normal inspection. Neck supple. CVS: Tachycardia. Heart sounds normal. Pulses normal. Respiratory: No respiratory distress. Painless inspiration. Breath sounds normal. Chest nontender. Abdomen: Soft and nontender. Bowel sounds normal. No organomegaly. No mass. Femoral pulses equal. Back: Normal external inspection. Skin: Skin warm and dry. Normal skin color. No rash. Normal skin turgor. (few ecchymostic areas shins). Extremities: Extremities exhibit normal ROM. No lower extremity edema. Neuro: Oriented X 3. No motor deficit. No sensory deficit.LABS, X-RAYS, AND EKGEKG: EKG time: 11:30 04/21/2021. Atrial fibrillation (154). Normal QRS complex. LVH. Left axisdeviation. Non-specific ST segment / T wave abnormalities. The study has been interpretedcontemporaneously by me. The EKG appears to be a good tracing. I agree with and confirm thecomputer reading of the EKG. Interpretation time: 11:33 04/21/2021.Chest X-ray: (Complete opacification left lung field). Interpretation time: 14:34 04/21/2021.Laboratory Tests: Laboratory tests have been ordered, with results reviewed and considered in themedical decision making process. CBC w Diff: (SARAH: 04/21/2021 11:50) ( MsgRcvd 04/21/2021 12:31) Final results Test Result Flag Units (Reference) CBC W/AUTOMATED DIFF COMPLETE BLOOD COUNT WBC 7.8 10/uL (4.2 - 11.0) RBC 3.09 L 10/uL (4.20 - 5.40) HEMOGLOBIN 10.4 L g/dL (12.0 - 16.0) HEMATOCRIT 31.3 L % (37.0 - 47.0) MCV 101.3 H fL (81.0 - 101) MCH 33.7 pg (27.0 - 34.0) MCHC 33.2 g/dL (31.0 - 36.0) RDW 18.0 H % (11.5 - 14.5) PLATELETS 190 10/uL (150 - 450) MPV 9.6 fL (7.4 - 10.4) NEUT 72.7 % (37.0 - 80.0) LYMPH 9.3 L % (25.0 - 40.0) MONO 14.0 H % (3.0 - 8.0) EOS 1.3 % (0.0 - 7.0) BASO 0.3 % (0.0 - 2.5) %IG 2.4 H % (0.0 - 0.0) %NRBC 0.0 % (0.0 - 0.0) #NEUT 5.65 10/uL (2.00 - 6.90) #LYMPH 0.72 10/uL (0.60 - 3.40) #MONO 1.09 H 10/uL (0.00 - 0.90) #EOS 0.10 10/uL (0.00 - 0.70) #BASO 0.02 10/uL (0.00 - 0.20) #IG 0.19 H 10/uL (0.00 - 0.10) #NRBC 0.00 10/uL (0.00 - 0.00) MANUAL DIFF SEE BELOW SEGS 78 % (37 - 80) %LYMPH 16 L % (25 - 40) %MONO 6 % (3 - 8) 3 Clinical Report - Physicians/Mid Levels [facility] Emergency Department [address] [place] [address] Phone #: ext- [phone] 04/21/2021 11:25 Patient: CHANTALE SOLOMON Sex: F : 1965 Age: 55y RBC MORPH SEE BELOW ANISO 1+ A (NORMAL: NONE MACRO 1+ A (NORMAL: NONE { SICKLE CELL (NORMAL: NONE SEEN ) PLT EST NORMAL (NORMAL: SHAUNA COMMENT: CMP: (SARAH: 04/21/2021 11:50) ( MsgRcvd 04/21/2021 12:29) Final results Test Result Flag Units (Reference) COMPREHENSIVE METABOLIC PANEL COMPREHENSIVE METABOLIC PANEL SODIUM 134 mEq/L (134 - 153) POTASSIUM 4.1 mEq/L (3.6 - 5.0) CHLORIDE 95 L mEq/L (98 - 107) CO2 28 MEQ/L (22 - 30) GLUCOSE 130 H MG/DL (70 - 99) BUN 13 MG/DL (7 - 21) CREATININE 0.8 MG/DL (0.7 - 1.5) BUN/CREAT 16 (8 - 27) TOTAL PROTEIN 6.7 G/DL (6.3 - 8.2) ALBUMIN 3.8 L G/DL (3.9 - 5.0) GLOBULIN 2.9 GM/DL (2.4 - 3.2) A/G RATIO 1.3 (0.8 - 2.0) CALCIUM 9.2 MG/DL (8.4 - 10.2) TOTAL BILI <0.7 MG/DL (0.2 - 1.3) ALKALINE PHOS 161 H U/L (38 - 126) SGOT/AST 47 H U/L (5 - 40) SGPT/ALT 35 U/L (7 - 56) ANION GAP 11.0 mmol/L (8.0 - 16.0) AGE 55 yrs NON-AA GFR >60 mL/min AFR AMER GFR >60 mL/min Male GFR Interprentation 20-49 yrs >60 mL/min Krnbso26-77 yrs >56 mL/min Normal 60-69 yrs >49 mL/min Normal 70-79yrs>42 mL/min Normal 80 and above >35 mL/min Normal Female GFRInterpretation 20-39 yrs >60 mL/min Normal 40-49 yrs >58 mL/minNormal 50-59 yrs >51 mL/min Normal 60-69 yrs >45 mL/min Mpafam53-25 yrs >39 mL/min Normal 80 and above >32 mL/min NormalTroponin-T: (SARAH: 04/21/2021 11:50) ( WvgRcvd 04/21/2021 12:26) Final results Test Result Flag Units (Reference) TROPONIN T <0.01 NG/ML (0.00 - 0.10) TROPONIN T0.1 ng/ml Recommended as the clinical threshold value forTroponin T.TSH: (SARAH: 04/21/2021 11:50) ( MsgRcvd 04/21/2021 12:36) Final results Test Result Flag Units (Reference) TSH 1.34 uIU/mL (0.47 - 5.01)BNP: (SARAH: 04/21/2021 11:50) ( MsgRcvd 04/21/2021 12:41) Final results Test Result Flag Units (Reference) BNP 1163 H PG/ML (0 - 125) 4 Clinical Report - Physicians/Mid Levels [facility] Emergency Department [address] [place] [address] Phone #: ext- [phone] 04/21/2021 11:25 Patient: CHANTALE SOLOMON Sex: F : 1965 Age: 55y Magnesium: (SARAH: 04/21/2021 11:50) ( MsgRcvd 04/21/2021 12:29) Final results Test Result Flag Units (Reference) MAGNESIUM 1.5 L MG/DL (1.7 - 2.2) . Note - Tests: (EKG NSR 100b/min leftward axis and LVH with repolarization abnormalities.).PROGRESS AND PROCEDURESCourse of Care: 12:Apr 21 2021. 12:Apr 21 2021. (Patient's history obtained and Hospital recordand EKG reviewed. Exam completed. Case discussed with Jair Johns for Dr Alvarez her faith doctor.recommends Iv Diltiazem.). 12:32 Apr 21 2021. (Patient converted to sinus before Cardizem started.). 13:03 Apr 21 2021. (IV Magnesium 1 gm given.). 14:45 Apr 21 2021. (Patient's case discussed with Jair Ayala and conferred with Dr Alvarez. He wants Metoprolol 12.5mg Bid first dose now. Follow up in office as scheduled. Return if worsen.). Disposition: Condition: stable.CLINICAL IMPRESSION Paroxysmal atrial fibrillation. Metastatic left lower lobe lung cancer. Stable COPD. No acute COPD. Mild hypomagnesemia.INSTRUCTIONS Warnings: GENERAL WARNINGS: Return or contact your physician immediately if your condition worsens or changes unexpectedly, if not improving as expected, or if other problems arise. Your Current Medications: Your current home medications have been reviewed. CONTINUE TAKING THE FOLLOWING MEDICATIONS: Breo Ellipta Inhalation : 1 puff daily. dilTIAZem HCl Oral : 180 mg daily, at bedtime. Furosemide Oral : 20 mg daily. Multaq Oral : Tablet 400 mg, 2x a day. Pantoprazole Sodium Oral : 40 mg daily. Potassium Oral : 10 meq 2x a day. 5 Clinical Report - Physicians/Mid Levels [facility] Emergency Department [address] [place] [address] Phone #: ext- [phone] 04/21/2021 11:25 [id number] Sex: F : 1965 Age: 55y Spiriva HandiHaler Inhalation : 2 puffs daily. Xarelto Oral : Tablet 10 mg, 1 tablet daily. Folic Acid Oral : Tablet 800 mcg, 1 tablet daily. Magnesium Oral : 1000mg daily. Prescription Medications: metoprolol tartrate 25 mg tablet Take 1/2 tablet twice a day for 30 days -- Dispense 30 tablet. Refills: 0. Substitution permitted. [id number] [address], [place] [phone]. FaxNumber: . Understanding of the discharge instructions verbalized by patient. Follow- up with: Osmel Alvarez MD, Cardiology, , [address] [place] [address], [id number] Follow up as scheduled. Reason for referral: evaluation. Summary of care provided to patient via paper.(Electronically signed by Tadeo Ritchie, Physician 04/21/2021 15:08) Name Value Range Interpretation Code Description Data Maura rce(s) Supporting Document(s) ID Date Data Source [id number] 04/21/2021 02:37:00 PM EDT [facility] Name Value Range Interpretation Code Description Data Maura rce(s) Supporting Document(s) [facility] S[facility] Clean Catch [facility] ital COLOR yellow NORMAL: Yellow [facility] CLARITY clear NORMAL: Clear [facility] Specific gravity of Urine by Test strip 1.005 1.001 - 1.030 [facility] pH 7 5 - 9 [facility] Glucose [Mass/volume] in Urine by Test strip NORM NORMAL: Negat [facility] Bilirubin.total [Presence] in Urine by Test strip NEG NORMAL: Negative [facility] Ketones [Presence] in Urine by Test strip NEG NORMAL: Negative [facility] Protein [Mass/volume] in Urine by Test strip 30 NORMAL: Negat [facility] Nitrite [Presence] in Urine by Test strip NEG NORMAL: Negative [facility] BLOOD NEG NORMAL: Negative [facility] Leukocyte esterase [Presence] in Urine by Test strip NEG SHAUNA L: Negative [facility] Urobilinogen [Mass/volume] in Urine by Test strip NOR less lupe n 1.0 mg/dL [facility] MICROSCOPIC See Below [facility] ital WBC 0 - 1 NORMAL: NONE SEEN [facility] EPITHELIAL FEW NORMAL: NONE SEEN [facility] Bacteria [Presence] in Urine sediment by Light microscopy Tr david NORMAL: NONE SEEN [facility] ID Date Data Source [id number] 04/21/2021 12:41:00 PM EDT [facility] Name Value Range Interpretation Code Description Data Maura rce(s) Supporting Document(s) BNP 1163 PG/ML 0 - 125 H [facility] willy ID Date Data Source [id number] 04/21/2021 12:36:00 PM EDT [facility] Name Value Range Interpretation Code Description Data Maura rce(s) Supporting Document(s) Thyrotropin [Units/volume] in Serum or Plasma by Detec tion limit <= 0.05 mIU/L 1.34 uIU/mL 0.47 - 5.01 [facility] ID Date Data Source [id number] 04/21/2021 12:31:00 PM EDT [facility] Name Value Range Interpretation Code Description Data Maura rce(s) Supporting Document(s) CBC W/AUTOMATED DIFF [facility] COMPLETE BLOOD COUNT Leukocytes [#/volume] in Blood by Automated count 7.8 10^3/uL 4.2 - 1 1.0 [facility] Erythrocytes [#/volume] in Blood by Automated count 3.09 10^6/uL 4. 20 - 5.40 L [facility] Hemoglobin [Mass/volume] in Blood 10.4 g/dL 12.0 - 16.0 L [facility] Hematocrit [Volume Fraction] of Blood by Automated count 31.3 % 3 7.0 - 47.0 L [facility] Erythrocyte mean corpuscular volume [Entitic volume] b y Automated count 101.3 fL 81.0 - 101 H [facility] Erythrocyte mean corpuscular hemoglobin [Entitic mass] by Automated count 33.7 pg 27.0 - 34.0 [facility] Erythrocyte mean corpuscular hemoglobin concentration [Mass/volume] by Automated count 33.2 g/dL 31.0 - 36.0 [facility] Erythrocyte distribution width [Ratio] by Automated count 18.0 % 11.5 - 14.5 H [facility] Platelets [#/volume] in Blood by Automated count 190 10^3/uL 150 - 45 0 [facility] Platelet mean volume [Entitic volume] in Blood by Automated count 9.6 fL 7.4 - 10.4 [facility] Neutrophils/100 leukocytes in Blood by Automated count 72.7 % 37. 0 - 80.0 [facility] Lymphocytes/100 leukocytes in Blood by Manual count 9.3 % 25.0 - 40.0 L [facility] Monocytes/100 leukocytes in Blood by Automated count 14.0 % 3.0 - 8.0 H [facility] Eosinophils/100 leukocytes in Blood by Automated count 1.3 % 0.0 - 7.0 [facility] Basophils/100 leukocytes in Blood by Automated count 0.3 % 0.0 - 2.5 [facility] %IG 2.4 % 0.0 - 0.0 H [facility] al %NRBC 0.0 % 0.0 - 0.0 [facility] al Neutrophils [#/volume] in Blood by Automated count 5.65 10^3/uL 2.00 - 6.90 [facility] Lymphocytes [#/volume] in Blood by Automated count 0.72 10^3/uL 0.60 - 3.40 [facility] Monocytes [#/volume] in Blood by Automated count 1.09 10^3/uL 0.00 - 0.90 H [facility] Eosinophils [#/volume] in Blood by Automated count 0.10 10^3/uL 0.00 - 0.70 [facility] Basophils [#/volume] in Blood by Automated count 0.02 10^3/uL 0.00 - 0.20 [facility] #IG 0.19 10^3/uL 0.00 - 0.10 H [facility]ital #NRBC 0.00 10^3/uL 0.00 - 0.00 [facility] MANUAL DIFF SEE BELOW [facility] Segmented neutrophils/100 leukocytes in Blood by Manual count 78 % 37 - 80 [facility] %LYMPH 16 % 25 - 40 L [facility] al %MONO 6 % 3 - 8 [facility] al RBC MORPH SEE BELOW [facility] al Anisocytosis [Presence] in Blood by Light microscopy 1+ SHAUNA L: NONE SEEN A [facility] Macrocytes [Presence] in Blood by Light microscopy 1+ NORMAL: NONE SEEN A [facility] { SICKLE CELL (NORMAL: NONE SEEN ) Platelet adequacy [Presence] in Blood by Light microscopy NORMAL NORMAL: NORMAL [facility] COMMENT: ID Date Data Source [id number] 04/21/2021 12:29:00 PM EDT [facility] Name Value Range Interpretation Code Description Data Maura rce(s) Supporting Document(s) Magnesium [Mass/volume] in Serum or Plasma 1.5 MG/DL 1.7 - 2.2 L [facility] ID Date Data Source [id number] 04/21/2021 12:29:00 PM EDT [facility] Name Value Range Interpretation Code Description Data Maura rce(s) Supporting Document(s) COMPREHENSIVE METABOLIC PANEL [facility] COMPREHENSIVE METABOLIC PANEL Sodium [Moles/volume] in Serum or Plasma 134 mEq/L 134 - 153 [facility] Potassium [Moles/volume] in Serum or Plasma 4.1 mEq/L 3.6 - 5.0 [facility] Chloride [Moles/volume] in Serum or Plasma 95 mEq/L 98 - 107 L [facility] Carbon dioxide, total [Moles/volume] in Serum or Plasma 28 MEQ/L 22 - 30 [facility] Glucose [Mass/volume] in Serum or Plasma 130 MG/DL 70 - 99 H [facility] BUN 13 MG/DL 7 - 21 [facility] Creatinine [Mass/volume] in Serum or Plasma 0.8 MG/DL 0.7 - 1.5 [facility] B[facility]CREAT 16 8 - [facility] [Mass/volume] in Serum or Plasma 6.7 G/DL 6.3 - 8.2 [facility] Albumin [Mass/volume] in Serum or Plasma 3.8 G/DL 3.9 - 5.0 L [facility] Globulin [Mass/volume] in Serum by calculation 2.9 GM/DL 2.4 - 3.2 [facility] A/G RATIO 1.3 0.8 - 2.0 [facility] Calcium [Mass/volume] in Serum or Plasma 9.2 MG/DL 8.4 - 10.2 [facility] Bilirubin.total [Mass/volume] in Serum or Plasma <0.7 MG/DL 0.2 - 1.3 [facility] Alkaline phosphatase [Enzymatic activity/volume] in Serum or Plasma 161 U/L 38 - 126 H [facility] Aspartate aminotransferase [Enzymatic activity/volume] in Serum or Plasma 47 U/L 5 - 40 H [facility] Alanine aminotransferase [Enzymatic activity/volume] in Seru m or Plasma 35 U/L 7 - 56 [facility] Anion gap 3 in Serum or Plasma 11.0 mmol/L 8.0 - 16.0 [facility] AGE 55 yrs [facility] al NON-AA GFR >60 mL/min [facility] ital AFR AMER GFR >60 mL/min [facility] spital Male GFR In [...] >32 mL/min Normal ID Date Data Source [id number] 04/21/2021 12:26:00 PM EDT [facility] Name Value Range Interpretation Code Description Data Maura rce(s) Supporting Document(s) TROPONIN T <0.01 NG/ML 0.00 - 0.10 [facility] ospital TROPONIN T0.1 ng/ml Recommended as the c linical threshold value forTroponin T. ID Date Data Source [id number] 04/20/2021 05:01:00 AM EDT SORIN Alvarez MD) Name Value Range Interpretation Code Description Data Maura rce(s) Supporting Document(s) Magnesium [Mass/volume] in Serum or Plasma 1.7 mg/dL 1.7-2.2 [facility] (Osmel Alvarez MD) can run on todays blood ID Date Data Source [id number] 04/20/2021 05:01:00 AM EDT [facility] (Osmel Alvarez MD) Name Value Range Interpretation Code Description Data Maura rce(s) Supporting Document(s) Laboratory test finding (navigational concept) Laboratory test result [facility] (Osmel Alvarez MD) COMPREHENSIVE METABOLIC PANEL Laboratory test finding (navigational concept) 138 meq/L 134-153 [facility] (Osmel Alvarez MD) Laboratory test finding (navigational concept) 102 meq/L 98-107 [facility] (Osmel Alvarez MD) Laboratory test finding (navigational concept) 4.4 meq/L 3.6-5.0 [facility] (Osmel Alvarez MD) Laboratory test finding (navigational concept) 10 mg/dL 7-21 [facility] (Osmel Alvarez MD) Laboratory test finding (navigational concept) 28 meq/L 22-30 [facility] (Osmel Alvarez MD) Laboratory test finding (navigational concept) 107 mg/dL 7 0-99 Above high normal [facility] (Osmel Alvarez MD) Laboratory test finding (navigational concept) 5.4 g/dL 6 .3-8.2 Below low normal [facility] (Osmel Alvarez MD) Laboratory test finding (navigational concept) 14 8-27 [facility] (Osmel Alvarez MD) Laboratory test finding (navigational concept) 0.7 mg/dL 0.7-1.5 [facility] (Osmel Alvarez MD) Laboratory test finding (navigational concept) 3.2 g/dL 3 .9-5.0 Below low normal [facility] (Osmel Alvarez MD) Laboratory test finding (navigational concept) 2.2 GM/DL 2 .4-3.2 Below low normal [facility] (Osmel Alvarez MD) Laboratory test finding (navigational concept) 1.5 0.8-2.0 [facility] (sOmel Alvarez MD) Laboratory test finding (navigational concept) Laboratory test resu lt 0.2-1.3 [facility] (Osmel Alvarez MD) Laboratory test finding (navigational concept) 109 U/L 38-126 [facility] (Osmel Alvarez MD) Laboratory test finding (navigational concept) 8.6 mg/dL 8.4-10.2 [facility] (Osmel Alvarez MD) Laboratory test finding (navigational concept) 8.0 mmol/L 8.0-16.0 [facility] (Osmel Alvarez MD) Laboratory test finding (navigational concept) 26 U/L 5-40 [facility] (Osmel Alvarez MD) Laboratory test finding (navigational concept) 20 U/L 7-56 [facility] (Osmel Alvarez MD) Laboratory [...] >32 mL/min Normal ID Date Data Source [id number] 04/20/2021 05:01:00 AM EDT [facility] (Osmel Alvarez MD) Name Value Range Interpretation Code Description Data Maura rce(s) Supporting Document(s) Laboratory test finding (navigational concept) Laboratory test result [facility] (Osmel Alvarez MD) COMPLETE BLOOD COUNT Laboratory test finding (navigational concept) 5.9 10^3/uL 4.2-11.0 [facility] (Osmel Alvarez MD) Laboratory test finding (navigational concept) 2.71 10^6/uL 4 .20-5.40 Below low normal [facility] (Osmel Alvarez MD) Laboratory test finding (navigational concept) 9.1 g/dL 1 2.0-16.0 Below low normal [facility] (Osmel Alvarez MD) Laboratory test finding (navigational concept) 102.6 fL 8 1.0-101 Above high normal [facility] (Osmel Alvarez MD) Laboratory test finding (navigational concept) 27.8 % 3 7.0-47.0 Below low normal [facility] (Osmel Alvarez MD) Laboratory test finding (navigational concept) 33.6 pg 27.0-34.0 [facility] (Osmel Alvarez MD) Laboratory test finding (navigational concept) 32.7 g/dL 31.0-36.0 [facility] (Osmel Alvarez MD) Laboratory test finding (navigational concept) 18.2 % 1 1.5-14.5 Above high normal [facility] (Osmel Alvarez MD) Laboratory test finding (navigational concept) 9.1 fL 7.4-10.4 [facility] (Osmel Alvarez MD) Laboratory test finding (navigational concept) 166 10^3/uL 150-450 [facility] (Osmel Alvarez MD) Laboratory test finding (navigational concept) 80.6 % 3 7.0-80.0 Above high normal [facility] (Osmel Alvarez MD) Laboratory test finding (navigational concept) 4.9 % 25.0-40 .0 Below low normal [facility] (Osmel Alvarez MD) Laboratory test finding (navigational concept) 10.8 % 3.0-8.0 Above high normal [facility] (Osmel Alvarez MD) Laboratory test finding (navigational concept) 2.5 % 0.0-7.0 [facility] (Osmel Alvarez MD) Laboratory test finding (navigational concept) 1.0 % 0.0-0.0 Above high normal [facility] (Osmel Alvarez MD) Laboratory test finding (navigational concept) 0.2 % 0.0-2.5 [facility] (Osmel Alvarez MD) Laboratory test finding (navigational concept) 0.0 % 0.0-0.0 [facility] (Osmel Alvarez MD) Laboratory test finding (navigational concept) 4.77 10^3/uL 2.00-6.90 [facility] (Osmel Alvarez MD) Laboratory test finding (navigational concept) 0.29 10^3/uL 0 .60-3.40 Below low normal [facility] (Osmel Alvarez MD) Laboratory test finding (navigational concept) 0.64 10^3/uL 0.00-0.90 [facility] (Osmel Alvarez MD) Laboratory test finding (navigational concept) 0.01 10^3/uL 0.00-0.20 [facility] (Osmel Alvarez MD) Laboratory test finding (navigational concept) 0.15 10^3/uL 0.00-0.70 [facility] (Osmel Alvarez MD) Laboratory test finding (navigational concept) 0.00 10^3/uL 0.00-0.00 [facility] (Osmel Alvarez MD) Laboratory test finding (navigational concept) 0.06 10^3/uL 0.00-0.10 [facility] (Osmel Alvarez MD) Laboratory test finding (navigational concept) Laboratory test result [facility] (Osmel Alvarez MD) Laboratory test finding (navigational concept) 87 % 37-80 Above high normal [facility] (Osmel Alvarez MD) Laboratory test finding (navigational concept) 2 % 0-7 [facility] (Osmel Alvarez MD) Laboratory test finding (navigational concept) 9 % 3-8 Above high normal [facility] (Osmel Alvarez MD) Laboratory test finding (navigational concept) 2 % 25-40 Below low normal [facility] (Osmel Alvarez MD) Laboratory test finding (navigational concept) Laboratory test r esult Abnormal (applies to non-numeric results) [facility] (Osmel Alvarez MD ) Laboratory test finding (navigational concept) Laboratory test result [facility] (Osmel Alvarez MD) Laboratory test finding (navigational concept) Laboratory test r esult Abnormal (applies to non-numeric results) [facility] (Osmel Alvarez MD ) Laboratory test finding (navigational concept) Laboratory test r esult Abnormal (applies to non-numeric results) [facility] (Osmel Alvarez MD ) { SICKLE CELL (NORMAL: NONE SEEN ) Laboratory test finding (navigational concept) Laboratory test result [facility] (Osmel Alvarez MD) COMMENT: ID Date Data Source [id number] 04/20/2021 09:24:00 AM EDT [facility] Name Value Range Interpretation Code Description Data Maura rce(s) Supporting Document(s) Magnesium [Mass/volume] in Serum or Plasma 1.7 MG/DL 1.7 - 2.2 [facility] ID Date Data Source [id number] 04/20/2021 08:33:00 AM EDT [facility] Name Value Range Interpretation Code Description Data Maura rce(s) Supporting Document(s) COMPREHENSIVE METABOLIC PANEL [facility] COMPREHENSIVE METABOLIC PANEL Sodium [Moles/volume] in Serum or Plasma 138 mEq/L 134 - 153 [facility] Potassium [Moles/volume] in Serum or Plasma 4.4 mEq/L 3.6 - 5.0 [facility] Chloride [Moles/volume] in Serum or Plasma 102 mEq/L 98 - 107 [facility] Carbon dioxide, total [Moles/volume] in Serum or Plasma 28 MEQ/L 22 - 30 [facility] Glucose [Mass/volume] in Serum or Plasma 107 MG/DL 70 - 99 H [facility] BUN 10 MG/DL 7 - 21 [facility] Creatinine [Mass/volume] in Serum or Plasma 0.7 MG/DL 0.7 - 1.5 [facility] BUN/CREAT 14 8 - 27 [facility] Protein [Mass/volume] in Serum or Plasma 5.4 G/DL 6.3 - 8.2 L [facility] Albumin [Mass/volume] in Serum or Plasma 3.2 G/DL 3.9 - 5.0 L [facility] Globulin [Mass/volume] in Serum by calculation 2.2 GM/DL 2.4 - 3.2 L [facility] A/G RATIO 1.5 0.8 - 2.0 [facility] Calcium [Mass/volume] in Serum or Plasma 8.6 MG/DL 8.4 - 10.2 [facility] Bilirubin.total [Mass/volume] in Serum or Plasma <0.7 MG/DL 0.2 - 1.3 [facility] Alkaline phosphatase [Enzymatic activity/volume] in Serum or Plasma 109 U/L 38 - 126 [facility] Aspartate aminotransferase [Enzymatic activity/volume] in Serum or Plasma 26 U/L 5 - 40 [facility] Alanine aminotransferase [Enzymatic activity/volume] in Seru m or Plasma 20 U/L 7 - 56 [facility] Anion gap 3 in Serum or Plasma 8.0 mmol/L 8.0 - 16.0 [facility] AGE 55 yrs [facility] NON-AA GFR >60 mL/min [facility] ital AFR AMER GFR >60 mL/min [facility] Male GFR In [...] >32 mL/min Normal ID Date Data Source [id number] 04/20/2021 07:00:00 AM EDT [facility] Name Value Range Interpretation Code Description Data Maura rce(s) Supporting Document(s) CBC W/AUTOMATED DIFF [facility] COMPLETE BLOOD COUNT Leukocytes [#/volume] in Blood by Automated count 5.9 10^3/uL 4.2 - 1 1.0 [facility] Erythrocytes [#/volume] in Blood by Automated count 2.71 10^6/uL 4. 20 - 5.40 L [facility] Hemoglobin [Mass/volume] in Blood 9.1 g/dL 12.0 - 16.0 L [facility] Hematocrit [Volume Fraction] of Blood by Automated count 27.8 % 3 7.0 - 47.0 L [facility] Erythrocyte mean corpuscular volume [Entitic volume] b y Automated count 102.6 fL 81.0 - 101 H [facility] Erythrocyte mean corpuscular hemoglobin [Entitic mass] by Automated count 33.6 pg 27.0 - 34.0 [facility] Erythrocyte mean corpuscular hemoglobin concentration [Mass/volume] by Automated count 32.7 g/dL 31.0 - 36.0 [facility] Erythrocyte distribution width [Ratio] by Automated count 18.2 % 11.5 - 14.5 H [facility] Platelets [#/volume] in Blood by Automated count 166 10^3/uL 150 - 45 0 [facility] Platelet mean volume [Entitic volume] in Blood by Automated count 9.1 fL 7.4 - 10.4 [facility] Neutrophils/100 leukocytes in Blood by Automated count 80.6 % 37. 0 - 80.0 H [facility] Lymphocytes/100 leukocytes in Blood by Manual count 4.9 % 25.0 - 40.0 L [facility] Monocytes/100 leukocytes in Blood by Automated count 10.8 % 3.0 - 8.0 H [facility] Eosinophils/100 leukocytes in Blood by Automated count 2.5 % 0.0 - 7.0 [facility] Basophils/100 leukocytes in Blood by Automated count 0.2 % 0.0 - 2.5 [facility] %IG 1.0 % 0.0 - 0.0 [facility] %NRBC 0.0 % 0.0 - 0.0 [facility] Neutrophils [#/volume] in Blood by Automated count 4.77 10^3/uL 2.00 - 6.90 [facility] Lymphocytes [#/volume] in Blood by Automated count 0.29 10^3/uL 0.60 - 3.40 L [facility] Monocytes [#/volume] in Blood by Automated count 0.64 10^3/uL 0.00 - 0.90 [facility] Eosinophils [#/volume] in Blood by Automated count 0.15 10^3/uL 0.00 - 0.70 [facility] Basophils [#/volume] in Blood by Automated count 0.01 10^3/uL 0.00 - 0.20 [facility] #IG 0.06 10^3/uL 0.00 - 0.10 [facility] #NRBC 0.00 10^3/uL 0.00 - 0.00 [facility] MANUAL DIFF SEE BELOW [facility] ital Segmented neutrophils/100 leukocytes in Blood by Manual count 87 % 37 - 80 H [facility] %LYMPH 2 % 25 - 40 L [facility] al %MONO 9 % 3 - 8 H [facility] al %EOS 2 % 0 - 7 [facility] al RBC MORPH SEE BELOW [facility] al Anisocytosis [Presence] in Blood by Light microscopy 1+ SHAUNA L: NONE SEEN A [facility] Macrocytes [Presence] in Blood by Light microscopy 1+ NORMAL: NONE SEEN A [facility] Poikilocytosis [Presence] in Blood by Light microscopy 1+ NOR MAL: NONE SEEN A [facility] { SICKLE CELL (NORMAL: NONE SEEN ) Platelet adequacy [Presence] in Blood by Light microscopy NORMAL NORMAL: NORMAL [facility] COMMENT: ID Date Data Source [id number] 04/19/2021 12:39:00 PM EDT [facility] [address] [place] [address] RESPIRATORY CARE REPORT ==== ---------NAME------- NUMBER SEX AGE ADMIT DISC. XRAY# F/C CYNDY Daniels [id number] F [id number] 04/17/21 [id number] BBF O/P DATE OF : 1965 M/R# [id number] PH#: [phone] CCU1 LOCATION: EMERGENCY DEPT [facility] [address] COMPL ETE:04/19/21 07:[address] [place] [id number] PHYSICIAN: KIM MENDEZ Name Value Range Interpretation Code Description Data Maura rce(s) Supporting Document(s) ID Date Data Source [id number] 04/19/2021 05:50:00 AM EDT [facility] (Osmel Alvarez MD) Name Value Range Interpretation Code Description Data Maura rce(s) Supporting Document(s) Magnesium [Mass/volume] in Serum or Plasma 1.5 mg/dL 1.7-2.2 [place] w low normal [facility] (Osmel Alvarez MD) Iron [Mass/volume] in Serum or Plasma 45 ug/dL 42-135 [facility] (Osmel Alvarez MD) Natriuretic peptide.B prohormone N-Terminal [Mass/volu me] in Serum or Plasma 692 pg/mL 0-125 Above high normal [facility] (Osmel Alvarez MD) ID Date Data Source [id number] 04/19/2021 05:50:00 AM EDT [facility] (Osmel Alvarez MD) Name Value Range Interpretation Code Description Data Maura rce(s) Supporting Document(s) Laboratory test finding (navigational concept) Laboratory test result [facility] (Osmel Alvarez MD) COMPREHENSIVE METABOLIC PANEL Laboratory test finding (navigational concept) 136 meq/L 134-153 [facility] (Osmel Alvarez MD) Laboratory test finding (navigational concept) 101 meq/L 98-107 [facility] (Osmel Alvarez MD) Laboratory test finding (navigational concept) 27 meq/L 22-30 [facility] (Osmel Alvarez MD) Laboratory test finding (navigational concept) 4.3 meq/L 3.6-5.0 [facility] (Osmel Alvarez MD) Laboratory test finding (navigational concept) 108 mg/dL 7 0-99 Above high normal [facility] (Osmel Alvarez MD) Laboratory test finding (navigational concept) 13 mg/dL 7-21 [facility] (Osmel Alvarez MD) Laboratory test finding (navigational concept) 5.4 g/dL 6 .3-8.2 Below low normal [facility] (Osmel Alvarez MD) Laboratory test finding (navigational concept) 0.8 mg/dL 0.7-1.5 [facility] (Osmel Alvarez MD) Laboratory test finding (navigational concept) 16 8-27 [facility] (Osmel Alvarez MD) Laboratory test finding (navigational concept) 2.1 GM/DL 2 .4-3.2 Below low normal [facility] (Osmel Alvarez MD) Laboratory test finding (navigational concept) 3.3 g/dL 3 .9-5.0 Below low normal [facility] (Osmel Alvarez MD) Laboratory test finding (navigational concept) 1.6 0.8-2.0 [facility] (Osmel Alvarez MD) Laboratory test finding (navigational concept) Laboratory test resu lt 0.2-1.3 [facility] (Osmel Alvarez MD) Laboratory test finding (navigational concept) 8.7 mg/dL 8.4-10.2 [facility] (Osmel Alvarez MD) Laboratory test finding (navigational concept) 18 U/L 5-40 [facility] (Osmel Alvarez MD) Laboratory test finding (navigational concept) 90 U/L 38-126 [facility] (Osmel Alvarez MD) Laboratory test finding (navigational concept) 16 U/L 7-56 [facility] (Osmel Alvarez MD) Laboratory [...] >32 mL/min Normal ID Date Data Source [id number] 04/19/2021 05:50:00 AM EDT [facility] (Osmel Alvarez MD) Name Value Range Interpretation Code Description Data Maura rce(s) Supporting Document(s) Laboratory test finding (navigational concept) Laboratory test result [facility] (Osmel Alvarez MD) COMPLETE BLOOD COUNT Laboratory test finding (navigational concept) 7.3 10^3/uL 4.2-11.0 [facility] (Osmel Alvarez MD) Laboratory test finding (navigational concept) 28.4 % 3 7.0-47.0 Below low normal [facility] (Osmel Alvarez MD) Laboratory test finding (navigational concept) 2.79 10^6/uL 4 .20-5.40 Below low normal [facility] (Osmel Alvarez MD) Laboratory test finding (navigational concept) 9.4 g/dL 1 2.0-16.0 Below low normal [facility] (Osmel lAvarez MD) Laboratory test finding (navigational concept) 33.1 g/dL 31.0-36.0 [facility] (Osmel Alvarez MD) Laboratory test finding (navigational concept) 101.8 fL 8 1.0-101 Above high normal [facility] (Osmel Alvarez MD) Laboratory test finding (navigational concept) 33.7 pg 27.0-34.0 [facility] (Osmel Alvarez MD) Laboratory test finding (navigational concept) 193 10^3/uL 150-450 [facility] (Osmel Alvarez MD) Laboratory test finding (navigational concept) 8.8 fL 7.4-10.4 [facility] (Osmel Alvarez MD) Laboratory test finding (navigational concept) 18.3 % 1 1.5-14.5 Above high normal [facility] (Osmel Alvarez MD) Laboratory test finding (navigational concept) 4.7 % 3.0-8.0 [facility] (Osmel Alvarez MD) Laboratory test finding (navigational concept) 6.5 % 25.0-40 .0 Below low normal [facility] (Osmel Alvarez MD) Laboratory test finding (navigational concept) 85.9 % 3 7.0-80.0 Above high normal [facility] (Osmel Alvarez MD) Laboratory test finding (navigational concept) 2.2 % 0.0-7.0 [facility] (Osmel Alvarez MD) Laboratory test finding (navigational concept) 0.0 % 0.0-0.0 [facility] (Osmel Alvarez MD) Laboratory test finding (navigational concept) 0.3 % 0.0-2.5 [facility] (Osmel Alvarez MD) Laboratory test finding (navigational concept) 0.4 % 0.0-0.0 Above high normal [facility] (Osmel Alvarez MD) Laboratory test finding (navigational concept) 0.47 10^3/uL 0 .60-3.40 Below low normal [facility] (Osmel Alvarez MD) Laboratory test finding (navigational concept) 0.34 10^3/uL 0.00-0.90 [facility] (Osmel Alvarez MD) Laboratory test finding (navigational concept) 6.25 10^3/uL 2.00-6.90 [facility] (Osmel Alvarez MD) Laboratory test finding (navigational concept) 0.16 10^3/uL 0.00-0.70 [facility] (Osmel Alvarez MD) Laboratory test finding (navigational concept) 0.02 10^3/uL 0.00-0.20 [facility] (Osmel Alvarez MD) Laboratory test finding (navigational concept) 0.00 10^3/uL 0.00-0.00 [facility] (Osmel Alvarez MD) Laboratory test finding (navigational concept) 0.03 10^3/uL 0.00-0.10 [facility] (Osmel Alvarez MD) Laboratory test finding (navigational concept) Laboratory test result [facility] (Osmel Alvarez MD) Laboratory test finding (navigational concept) Laboratory test result [facility] (Osmel Alvarez MD) ID Date Data Source [id number] 04/19/2021 10:18:00 AM EDT [facility] Value Range Interpretation Code Description Data Maura rce(s) Supporting Document(s) Iron [Mass/volume] in Serum or Plasma 45 UG/DL 42 - 135 [facility] ID Date Data Source [id number] 04/19/2021 08:06:00 AM EDT [facility] Value Range Interpretation Code Description Data Maura rce(s) Supporting Document(s) BNP 692 PG/ML 0 - 125 H [facility] Hospit al ID Date Data Source [id number] 04/19/2021 08:06:00 AM EDT [facility] Value Range Interpretation Code Description Data Maura rce(s) Supporting Document(s) Magnesium [Mass/volume] in Serum or Plasma 1.5 MG/DL 1.7 - 2.2 L [facility] ID Date Data Source [id number] 04/19/2021 08:06:00 AM EDT [facility] Name Value Range Interpretation Code Description Data Maura rce(s) Supporting Document(s) COMPREHENSIVE METABOLIC PANEL [facility] COMPREHENSIVE METABOLIC PANEL Sodium [Moles/volume] in Serum or Plasma 136 mEq/L 134 - 153 [facility] Potassium [Moles/volume] in Serum or Plasma 4.3 mEq/L 3.6 - 5.0 [facility] Chloride [Moles/volume] in Serum or Plasma 101 mEq/L 98 - 107 [facility] Carbon dioxide, total [Moles/volume] in Serum or Plasma 27 MEQ/L 22 - 30 [facility] Glucose [Mass/volume] in Serum or Plasma 108 MG/DL 70 - 99 H [facility] BUN 13 MG/DL 7 - 21 [facility] al Creatinine [Mass/volume] in Serum or Plasma 0.8 MG/DL 0.7 - 1.5 [facility] BUN/CREAT 16 8 - 27 [facility] al Protein [Mass/volume] in Serum or Plasma 5.4 G/DL 6.3 - 8.2 L [facility] Albumin [Mass/volume] in Serum or Plasma 3.3 G/DL 3.9 - 5.0 L [facility] Globulin [Mass/volume] in Serum by calculation 2.1 GM/DL 2.4 - 3.2 L [facility] A/G RATIO 1.6 0.8 - 2.0 [facility] Calcium [Mass/volume] in Serum or Plasma 8.7 MG/DL 8.4 - 10.2 [facility] Bilirubin.total [Mass/volume] in Serum or Plasma <0.7 MG/DL 0.2 - 1.3 [facility] Alkaline phosphatase [Enzymatic activity/volume] in Serum or Plasma 90 U/L 38 - 126 [facility] Aspartate aminotransferase [Enzymatic activity/volume] in Serum or Plasma 18 U/L 5 - 40 [facility] Alanine aminotransferase [Enzymatic activity/volume] in Seru m or Plasma 16 U/L 7 - 56 [facility] Anion gap 3 in Serum or Plasma 8.0 mmol/L 8.0 - 16.0 [facility] AGE 55 yrs [facility] Hospit al NON-AA GFR >60 mL/min [facility] Hosp ital AFR AMER GFR >60 mL/min [facility] Ho spital Male GFR In [...] >32 mL/min Normal ID Date Data Source [id number] 04/19/2021 06:05:00 AM EDT [facility] Name Value Range Interpretation Code Description Data Maura rce(s) Supporting Document(s) CBC W/AUTOMATED DIFF [facility] COMPLETE BLOOD COUNT Leukocytes [#/volume] in Blood by Automated count 7.3 10^3/uL 4.2 - 1 1.0 [facility] Erythrocytes [#/volume] in Blood by Automated count 2.79 10^6/uL 4. 20 - 5.40 L [facility] Hemoglobin [Mass/volume] in Blood 9.4 g/dL 12.0 - 16.0 L [facility] Hematocrit [Volume Fraction] of Blood by Automated count 28.4 % 3 7.0 - 47.0 L [facility] Erythrocyte mean corpuscular volume [Entitic volume] b y Automated count 101.8 fL 81.0 - 101 H [facility] Erythrocyte mean corpuscular hemoglobin [Entitic mass] by Automated count 33.7 pg 27.0 - 34.0 [facility] Erythrocyte mean corpuscular hemoglobin concentration [Mass/volume] by Automated count 33.1 g/dL 31.0 - 36.0 [facility] Erythrocyte distribution width [Ratio] by Automated count 18.3 % 11.5 - 14.5 H [facility] Platelets [#/volume] in Blood by Automated count 193 10^3/uL 150 - 45 0 [facility] Platelet mean volume [Entitic volume] in Blood by Automated count 8.8 fL 7.4 - 10.4 [facility] Neutrophils/100 leukocytes in Blood by Automated count 85.9 % 37. 0 - 80.0 H [facility] Lymphocytes/100 leukocytes in Blood by Manual count 6.5 % 25.0 - 40.0 L [facility] Monocytes/100 leukocytes in Blood by Automated count 4.7 % 3.0 - 8.0 [facility] Eosinophils/100 leukocytes in Blood by Automated count 2.2 % 0.0 - 7.0 [facility] Basophils/100 leukocytes in Blood by Automated count 0.3 % 0.0 - 2.5 [facility] %IG 0.4 % 0.0 - 0.0 [facility] % 0.0 - 0.0 [facility] al Neutrophils [#/volume] in Blood by Automated count 6.25 10^3/uL 2.00 - 6.90 [facility] Lymphocytes [#/volume] in Blood by Automated count 0.47 10^3/uL 0.60 - 3.40 L [facility] Monocytes [#/volume] in Blood by Automated count 0.34 10^3/uL 0.00 - 0.90 [facility] Eosinophils [#/volume] in Blood by Automated count 0.16 10^3/uL 0.00 - 0.70 [facility] Basophils [#/volume] in Blood by Automated count 0.02 10^3/uL 0.00 - 0.20 [facility] #IG 0.03 10^3/uL 0.00 - 0.10 [facility] ospital #NRBC 0.00 10^3/uL 0.00 - 0.00 [facility] ospital MANUAL DIFF NOT INDICATED [facility] RBC MORPH NOT INDICATED [facility] spital ID Date Data Source [id number] 04/18/2021 11:21:00 AM EDT [facility] [address] [place] [address] PHONE: [phone] FAX: [phone] Name .................. : JUANITO Daniels Acct Number.................. : [id number] ROOM. ................. : [place]- MR Number ................... : [id number] Stay type ............. : E/R Discharge Date......... ... : Admit Date ......... : 04/17/21 Admit Phys .................... : WYATT Date of ....... : 1965 Family Phys ................... : SEQUEIRA Phone .................. : [phone] Age ................................ : 55 Film# .................. .:[id number] Sex ................................. : F Unsigned transcriptions are preliminary reports and do not represent a medical or legal document CHEST PORTABLE [id number] COMPLETE:04/17/21 18:28 [id number] Reason(s): rapid heart rate PORTABLE CHEST X-RAY: INDICATION: Rapid heart rate. FINDINGS: There is a right IJ port with the tip overlying the SVC. The right lung is grossly clear. There is increasing consolidation throughout the left lung compared to the prior examination from 04/01/21. The cardiac silhouette is obscured. No acute osseous abnormality is visualized. IMPRESSION: Increasing left lung consolidation likely due to atelectasis and/or effusion. Electronically Reviewed and Signed By Jimmy Ashby M.D. , 04/18/21 11:21, [place] Transcribe Initials: Scar CHAMBERS ranscribe Date: 04/17/21 20:51, Dictation Date: Copy for: EMERGENCY DEPT via modem Copy for: 710 MED REC DISCHARGED Page 1 of 1 Name Value Range Interpretation Code Description Data Maura rce(s) Supporting Document(s) ID Date Data Source [id number] 04/18/2021 07:10:00 PM EDT [address] [address] RESPIRATORY CARE REPORT ==== ---------NAME------- NUMBER SEX AGE ADMIT DISC. XRAY# F/C CYNDY Daniels [id number] F [id number] 04/17/21 [id number] BBF O/P DATE OF : 1965 M/R# [id number] #: [id number] LOCATION: EMERGENCY DEPT EKG [id number] COMPL ETE:04/18/21 07:17 [place] [id number] PHYSICIAN: KIM MENDEZ Name Value Range Interpretation Code Description Data Maura rce(s) Supporting Document(s) ID Date Data Source [id number] 04/18/2021 07:06:00 PM EDT [address] [place] [address] RESPIRATORY CARE REPORT ==== ---------NAME------- NUMBER SEX AGE ADMIT DISC. XRAY# F/C CYNDY Daniels [id number] F [id number] 04/17/21 04/17/21 [id number] [facility] E/R DATE OF : 1965 M/R# [id number] #: [id number] VT-01 LOCATION: EMERGENCY DEPT EKG [id number] COMP LETE:04/18/21 05:26 AJP [id number] PHYSICIAN: WYATT Name Value Range Interpretation Code Description Data Maura rce(s) Supporting Document(s) ID Date Data Source [id number] 04/18/2021 12:59:00 PM EDT [facility] (Osmel Alvarez MD) Name Value Range Interpretation Code Description Data [facility] rce(s) Supporting Document(s) Troponin T.cardiac [Mass/volume] in Serum or Plasma 0.02 ng/mL 0.00-0 .10 [facility] (Osmel Alvarez MD) TROPONIN T 0.1 ng/ml Recommended as the clinical th reshold value for Troponin T. ID Date Data Source [id number] 04/18/2021 01:27:00 PM EDT [facility] Name Value Range Interpretation Code Description Data [facility] Supporting Document(s) TROPONIN T 0.02 NG/ML 0.00 - 0.10 [facility] spital TROPONIN T0.1 ng/ml Recommended as the c linical threshold value forTroponin T. ID Date Data Source [id number] 04/18/2021 06:59:00 AM EDT [facility] (Osmel Alvarez MD) Name Value Range Interpretation Code Description Data [facility] rce(s) Supporting Document(s) Troponin T.cardiac [Mass/volume] in Serum or Plasma 0.02 ng/mL 0.00-0 .10 [facility] (Osmel Alvarez MD) TROPONIN T 0.1 ng/ml Recommended as the clinical th reshold value for Troponin T. Magnesium [Mass/volume] in Serum or Plasma 1.7 mg/dL 1.7-2.2 [facility] (Osmel Alvarez MD) Thyroxine (T4) free [Mass/volume] in Serum or Plasma 1.23 ng/dL 0.93- 1.70 [facility] (Osmel Alvarez MD) ID Date Data Source [id number] 04/18/2021 06:59:00 AM EDT [facility] (Osmel Alvarez MD) Name Value Range Interpretation Code Description Data Maura rce(s) Supporting Document(s) Laboratory test finding (navigational concept) Laboratory test result [facility] (Osmel Alvarez MD) COMPLETE BLOOD COUNT Laboratory test finding (navigational concept) 3.08 10^6/uL 4 .20-5.40 Below low normal [facility] (Osmel Alvarez MD) Laboratory test finding (navigational concept) 8.9 10^3/uL 4.2-11.0 [facility] (Osmel Alvarez MD) Laboratory test finding (navigational concept) 31.2 % 3 7.0-47.0 Below low normal [facility] (Osmel Alvarez MD) Laboratory test finding (navigational concept) 10.3 g/dL 1 2.0-16.0 Below low normal [facility] (Osmel Alvarez MD) Laboratory test finding (navigational concept) 101.3 fL 8 1.0-101 Above high normal [facility] (Osmel Alvarez MD) Laboratory test finding (navigational concept) 33.4 pg 27.0-34.0 [facility] (Osmel Alvarez MD) Laboratory test finding (navigational concept) 18.5 % 1 1.5-14.5 Above high normal [facility] (Osmel Alvarez MD) Laboratory test finding (navigational concept) 33.0 g/dL 31.0-36.0 [facility] (Osmel Alvarez MD) Laboratory test finding (navigational concept) 8.5 fL 7.4-10.4 [facility] (Osmel Alvarez MD) Laboratory test finding (navigational concept) 244 10^3/uL 150-450 [facility] (Osmel Alvarez MD) Laboratory test finding (navigational concept) 5.7 % 25.0-40 .0 Below low normal [facility] (Osmel Alvarez MD) Laboratory test finding (navigational concept) 88.8 % 3 7.0-80.0 Above high normal [facility] (Osmel Alvarez MD) Laboratory test finding (navigational concept) 2.7 % 3.0-8.0 Below low normal [facility] (Osmel Alvarez MD) Laboratory test finding (navigational concept) 2.0 % 0.0-7.0 [facility] (Osmel Alvarez MD) Laboratory test finding (navigational concept) 0.6 % 0.0-0.0 Above high normal [facility] (Osmel Alvarez MD) Laboratory test finding (navigational concept) 0.2 % 0.0-2.5 [facility] (Osmel Alvarez MD) Laboratory test finding (navigational concept) 0.0 % 0.0-0.0 [facility] (Osmel Alvarez MD) Laboratory test finding (navigational concept) 7.88 10^3/uL 2 .00-6.90 Above high normal [facility] (Osmel Alvarez MD) Laboratory test finding (navigational concept) 0.51 10^3/uL 0 .60-3.40 Below low normal [facility] (Osmel Alvarez MD) Laboratory test finding (navigational concept) 0.18 10^3/uL 0.00-0.70 [facility] (Osmel Alvarez MD) Laboratory test finding (navigational concept) 0.24 10^3/uL 0.00-0.90 [facility] (Osmel Alvarez MD) Laboratory test finding (navigational concept) 0.02 10^3/uL 0.00-0.20 [facility] (Osmel Alvarez MD) Laboratory test finding (navigational concept) 0.05 10^3/uL 0.00-0.10 [facility] (Osmel Alvarez MD) Laboratory test finding (navigational concept) 0.00 10^3/uL 0.00-0.00 [facility] (Osmel Alvarez MD) Laboratory test finding (navigational concept) Laboratory test result [facility] (Osmel Alvarez MD) Laboratory test finding (navigational concept) Laboratory test result [facility] (Osmel Alvarez MD) ID Date Data Source [id number] 04/18/2021 06:59:00 AM EDT [facility] (Osmel Alvarez MD) Name Value Range Interpretation Code Description Data Maura rce(s) Supporting Document(s) Laboratory test finding (navigational concept) Laboratory test result [facility] (Osmel Alvarez MD) COMPREHENSIVE METABOLIC PANEL Laboratory test finding (navigational concept) 141 meq/L 134-153 [facility] (Osmel Alvarez MD) Laboratory test finding (navigational concept) 101 meq/L 98-107 [facility] (Osmel Alvarez MD) Laboratory test finding (navigational concept) 4.3 meq/L 3.6-5.0 [facility] (Osmel Alvarez MD) Laboratory test finding (navigational concept) 101 mg/dL 7 0-99 Above high normal [facility] (Osmel Alvarez MD) Laboratory test finding (navigational concept) 31 meq/L 22-30 Above high normal [facility] (Osmel Alvarez MD) Laboratory test finding (navigational concept) 0.8 mg/dL 0.7-1.5 [facility] (Osmel Alvarez MD) Laboratory test finding (navigational concept) 14 mg/dL 7-21 [facility] (Osmel Alvarez MD) Laboratory test finding (navigational concept) 18 8-27 [facility] (Osmel Alvarez MD) Laboratory test finding (navigational concept) 5.5 g/dL 6 .3-8.2 Below low normal [facility] (Osmel Alvarez MD) Laboratory test finding (navigational concept) 3.5 g/dL 3 .9-5.0 Below low normal [facility] (Osmel Alvarez MD) Laboratory test finding (navigational concept) 2.0 GM/DL 2 .4-3.2 Below low normal [facility] (Osmel Alvarez MD) Laboratory test finding (navigational concept) 1.8 0.8-2.0 [facility] (Osmel Alvarez MD) Laboratory test finding (navigational concept) Laboratory test resu lt 0.2-1.3 [facility] (Osmel Alvarez MD) Laboratory test finding (navigational concept) 8.8 mg/dL 8.4-10.2 [facility] (Osmel Alvarez MD) Laboratory test finding (navigational concept) 99 U/L 38-126 [facility] (Osmel Alvarez MD) Laboratory test finding (navigational concept) 18 U/L 5-40 [facility] (Osmel Alvarez MD) Laboratory test finding (navigational concept) 9.0 mmol/L 8.0-16.0 [facility] (Osmel Alvarez MD) Laboratory [...] >32 mL/min Normal ID Date Data Source [id number] 04/18/2021 06:59:00 AM EDT [facility] (Osmel Alvarez MD) Name Value Range Interpretation Code Description Data Maura rce(s) Supporting Document(s) Thyrotropin [Units/volume] in Serum or Plasma by Detec tion limit <= 0.005 mIU/L 1.68 uIU/mL 0.47-5.01 [facility] (Osmel Alvarez MD) Natriuretic peptide.B prohormone N-Terminal [Mass/volu me] in Serum or Plasma 766 pg/mL 0-125 Above high normal [facility] (Osmel Alvarez MD) Cobalamin (Vitamin B12) [Mass/volume] in Serum or Plasma 390 pg/mL 2 32-1245 [facility] (Osmel Alvarez MD) Iron [Mass/volume] in Serum or Plasma 77 ug/dL 42-135 [facility] (Osmel Alvarez MD) ID Date Data Source [id number] 04/18/2021 10:37:00 AM EDT [facility] Name Value Range Interpretation Code Description Data Maura rce(s) Supporting Document(s) Cobalamin (Vitamin B12) [Mass/volume] in Serum or Plasma 390 PG/ML 232 - 1245 [facility] ID Date Data Source [id number] 04/18/2021 10:20:00 AM EDT [facility] Name Value Range Interpretation Code Description Data Maura rce(s) Supporting Document(s) Iron [Mass/volume] in Serum or Plasma 77 UG/DL 42 - 135 [facility] ID Date Data Source [id number] 04/18/2021 08:26:00 AM EDT [facility] Value Range Interpretation Code Description Data Maura rce(s) Supporting Document(s) Thyrotropin [Units/volume] in Serum or Plasma by Detec tion limit <= 0.05 mIU/L 1.68 uIU/mL 0.47 - 5.01 [facility] ID Date Data Source [id number] 04/18/2021 08:05:00 AM EDT [facility] Name Value Range Interpretation Code Description Data Maura rce(s) Supporting Document(s) BNP 766 PG/ML 0 - 125 H [facility] Hospit al ID Date Data Source [id number] 04/18/2021 08:05:00 AM EDT [facility] Value Range Interpretation Code Description Data Maura rce(s) Supporting Document(s) COMPREHENSIVE METABOLIC PANEL [facility] COMPREHENSIVE METABOLIC PANEL Sodium [Moles/volume] in Serum or Plasma 141 mEq/L 134 - 153 [facility] Potassium [Moles/volume] in Serum or Plasma 4.3 mEq/L 3.6 - 5.0 [facility] Chloride [Moles/volume] in Serum or Plasma 101 mEq/L 98 - 107 [facility] Carbon dioxide, total [Moles/volume] in Serum or Plasma 31 MEQ/L 22 - 30 H [facility] Glucose [Mass/volume] in Serum or Plasma 101 MG/DL 70 - 99 H [facility] BUN 14 MG/DL 7 - 21 [facility] Creatinine [Mass/volume] in Serum or Plasma 0.8 MG/DL 0.7 - 1.5 [facility] BUN/CREAT 18 8 - 27 [facility] al Protein [Mass/volume] in Serum or Plasma 5.5 G/DL 6.3 - 8.2 L [facility] Albumin [Mass/volume] in Serum or Plasma 3.5 G/DL 3.9 - 5.0 L [facility] Globulin [Mass/volume] in Serum by calculation 2.0 GM/DL 2.4 - 3.2 L [facility] A/G RATIO 1.8 0.8 - 2.0 [facility] Calcium [Mass/volume] in Serum or Plasma 8.8 MG/DL 8.4 - 10.2 [facility] Bilirubin.total [Mass/volume] in Serum or Plasma <0.7 MG/DL 0.2 - 1.3 [facility] Alkaline phosphatase [Enzymatic activity/volume] in Serum or Plasma 99 U/L 38 - 126 [facility] Aspartate aminotransferase [Enzymatic activity/volume] in Serum or Plasma 18 U/L 5 - 40 [facility] Alanine aminotransferase [Enzymatic activity/volume] in Seru m or Plasma 17 U/L 7 - 56 [facility] Anion gap 3 in Serum or Plasma 9.0 mmol/L 8.0 - 16.0 [facility] AGE 55 yrs [facility] NON-AA GFR >60 mL/min [facility] ital AFR AMER GFR >60 mL/min [facility] Ho spital Male GFR In [...] >32 mL/min Normal ID Date Data Source [id number] 04/18/2021 08:04:00 AM EDT [facility] Name Value Range Interpretation Code Description Data Maura rce(s) Supporting Document(s) Thyroxine (T4) free index in Serum or Plasma by calculation 1.23 NG/DL 0.93 - 1.70 [facility] ID Date Data Source [id number] 04/18/2021 08:04:00 AM EDT [facility] Name Value Range Interpretation Code Description Data Maura rce(s) Supporting Document(s) Magnesium [Mass/volume] in Serum or Plasma 1.7 MG/DL 1.7 - 2.2 [facility] ID Date Data Source [id number] 04/18/2021 07:53:00 AM EDT [facility] Name Value Range Interpretation Code Description Data Maura rce(s) Supporting Document(s) TROPONIN T 0.02 NG/ML 0.00 - 0.10 [facility] spital TROPONIN T0.1 ng/ml Recommended as the c linical threshold value forTroponin T. ID Date Data Source [id number] 04/18/2021 07:30:00 AM T [facility] Name Value Range Interpretation Code Description Data Maura rce(s) Supporting Document(s) CBC W/AUTOMATED DIFF [facility] COMPLETE BLOOD COUNT Leukocytes [#/volume] in Blood by Automated count 8.9 10^3/uL 4.2 - 1 1.0 [facility] Erythrocytes [#/volume] in Blood by Automated count 3.08 10^6/uL 4. 20 - 5.40 L [facility] Hemoglobin [Mass/volume] in Blood 10.3 g/dL 12.0 - 16.0 L [facility] Hematocrit [Volume Fraction] of Blood by Automated count 31.2 % 3 7.0 - 47.0 L [facility] Erythrocyte mean corpuscular volume [Entitic volume] b y Automated count 101.3 fL 81.0 - 101 H [facility] Erythrocyte mean corpuscular hemoglobin [Entitic mass] by Automated count 33.4 pg 27.0 - 34.0 [facility] Erythrocyte mean corpuscular hemoglobin concentration [Mass/volume] by Automated count 33.0 g/dL 31.0 - 36.0 [facility] Erythrocyte distribution width [Ratio] by Automated count 18.5 % 11.5 - 14.5 H [facility] Platelets [#/volume] in Blood by Automated count 244 10^3/uL 150 - 45 0 [facility] Platelet mean volume [Entitic volume] in Blood by Automated count 8.5 fL 7.4 - 10.4 [facility] Neutrophils/100 leukocytes in Blood by Automated count 88.8 % 37. 0 - 80.0 H [facility] Lymphocytes/100 leukocytes in Blood by Manual count 5.7 % 25.0 - 40.0 L [facility] Monocytes/100 leukocytes in Blood by Automated count 2.7 % 3.0 - 8.0 L [facility] Eosinophils/100 leukocytes in Blood by Automated count 2.0 % 0.0 - 7.0 [facility] Basophils/100 leukocytes in Blood by Automated count 0.2 % 0.0 - 2.5 [facility] %IG 0.6 % 0.0 - 0.0 H [facility] Hospit al %NRBC 0.0 % 0.0 - 0.0 [facility] al Neutrophils [#/volume] in Blood by Automated count 7.88 10^3/uL 2.00 - 6.90 H [facility] Lymphocytes [#/volume] in Blood by Automated count 0.51 10^3/uL 0.60 - 3.40 L [facility] Monocytes [#/volume] in Blood by Automated count 0.24 10^3/uL 0.00 - 0.90 [facility] Eosinophils [#/volume] in Blood by Automated count 0.18 10^3/uL 0.00 - 0.70 [facility] Basophils [#/volume] in Blood by Automated count 0.02 10^3/uL 0.00 - 0.20 [facility] #IG 0.05 10^3/uL 0.00 - 0.10 [facility] ospital #NRBC 0.00 10^3/uL 0.00 - 0.00 [facility] ospital MANUAL DIFF NOT INDICATED [facility] RBC MORPH NOT INDICATED [facility] spital ID Date Data Source [id number] 04/17/2021 09:27:00 PM EDT [facility] 1 OrderSheet [facility] Emergency Department [address] [place] [address] Phone #: [phone] 04/17/2021 21:23 Patient: CHANTALE SOLOMON Sex: F : 1965 Age: 55yWEIGHT:79.3 kg HEIGHT:60 inches BMI:34.1ALLERGIES: Penicillins, SeafoodCHIEF COMPLAINT: palpitations, fast heart rateDIAGNOSIS: Atrial fibrillationLAB ORDERSOrder Description Priority Entered Acknowledged InitialedCOVID-19 CAH (Not STAT 21:53 04/17/2021 21:55 Kimberly,Symptomatic as Gloria Schneiderefined by CDC) ;(04/17/21) (Not FirstTest) (Hospitalized)(Not ) (NotResident inCongregate CareSetting) (NotEmployed inHealthcare Setting)DIAGNOSTIC STUDY ORDERSOrder Description Priority Entered Acknowledged InitialedMEDICATION/IV/DRIP/FLUID ORDERSOrder Description Priority Entered Acknowledged Initialed- (diltiazem 180 mg 21:56 04/17/2021 22:12 [employer]) Gloria Schneider R.N. ;GENERAL ORDERSOrder Description Priority Entered Acknowledged Initialed[Electronically signed by Nidia Peck R.N. (23:43 04/17/2021)][Electronically signed by Gloria Schneider (01:18 )][Electronically locked by Nidia Peck R.N. (23:43 04/17/2021)] Name Value Range Interpretation Code Description Data Amura rce(s) Supporting Document(s) ID Date Data Source [id number] 04/17/2021 09:27:00 PM EDT [facility] 1 Medication Reconciliation Report [facility] Emergency Department [address] [place] [address] Phone #: [phone]- [phone] 04/17/2021 21:23 Patient: CHANTALE SOLOMON Sex: F : 1965 Age: 55yWeight: 79.3 kgHeight/Length: 60 in.BMI: 34.1ALLERGIES: Penicillins, SeafoodThe patient's Home Medications are listed below:THE FOLLOWING MEDICATIONS NEED TO BE RECONCILED: Breo Ellipta Inhalation 1 puff, daily dilTIAZem HCl Oral 180 mg, daily, at bedtime Folic Acid Oral (800 mcg) 1 tablet, daily Furosemide Oral 20 mg, daily Magnesium Oral 1000mg , daily New cardiac med does not know name Pantoprazole Sodium Oral 40 mg, daily Potassium Oral 10 meq, 2x a day Spiriva HandiHaler Inhalation 2 puffs, daily Xarelto Oral (10 mg) 1 tablet, dailyThe source(s) of the original Home Medication information:Not obtained.The following Medications were given to the patient in the Emergency Department:Diltiazem [PO] PO 180 mg, administered: 22:12 04/17/2021The following Medications were prescribed to the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 careFollow up with your healthcare provider, or as advised.When to seek medical adviceCall your healthcare provider right away if any of these following occur: Swelling in the legs that gets worse Unexpected weight gain Bleeding easier than normal Pain, redness, or swelling in one legCall 911Calling 911 is the fastest and safest way to get the emergency department. The paramedics can alsostart treatment on the way to the hospital, if needed.Call 911 or seek medical help right away if any of the following occur: Weakness of an arm or leg or one side of the face Chest pain Shortness of breath, or feeling that you can't get enough air Feeling lightheaded, faint, or dizzy Your heartbeat is very rapid, slow, or irregular compared with your regular heartbeat Bleeding that is not easily controlled Trouble with speech or vision Extreme drowsiness, confusion, dizziness, or fainting [id number] [employer]. [address] [place] [address]. All rights reserved. This information is not intended as asubstitute for professional medical care. Always follow your healthcare professional's instructions. You have been given the following additional information: 5 General Instructions [facility] Emergency Department [address] [place] [address] Phone #: ext- [phone] 04/17/2021 18:21 Patient: CHANTALE SOLOMON Sex: F : 1965 Age: 55yAtrial Fibrillation(Electronically signed by Gloria Schneider 04/18/2021 01:17) Name Value Range Interpretation Code Description Data Maura rce(s) Supporting Document(s) ID Date Data Source [id number] 04/17/2021 06:22:00 PM EDT [facility] 1 Clinical Report - Nurses [facility] Emergency Department [address] [place] [address] Phone #: ext- [phone] 04/17/2021 18:21 Patient: CHANTALE SOLOMON Sex: F : 1965 Age: 55yTRIAGE( pulse oximeter showed that her heart rate was up to 180 and then down but her heart monitor showedthat she was in a fib, last friday dr jenkins prescribed medication but she just picked it up today , wears2 liters of oxygen at home).Acuity: LEVEL 3.Chief Complaint: (a fib).Alert.This started today. 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 SEPSIS SCREEN NEGATIVE. No suspected or confirmedsigns of infection present. --18:51 04/17/21 Orin Pierson R.N.18:43 04/17/21. BP: 118/84. MAP: 95. HR: 117. RR: 24. O2 saturation: 99% on nasal cannula at 2liters/minute. Temp: 99.1 F. Pain level now: 0/10. --18:51 04/17/21 Orin Pierson R.N.Weight: 79.3 kg stated. Height/Length: 60 inches. BMI: 34.1. --18:42 04/17/21 Orin Pierson R.N.MedicationsBreo Ellipta Inhalation 1 puff, daily. dilTIAZem HCl Oral 180 mg, daily at bedtime. Folic Acid Oral (Tablet 800 mcg) 1 tablet, daily. Furosemide Oral 20 mg, daily. Magnesium Oral 1000mg , daily. Pantoprazole Sodium Oral 40 mg, daily. Potassium Oral 10 meq, 2x a day. Spiriva HandiHaler Inhalation 2 puffs, daily. Xarelto Oral (Tablet 10 mg) 1 tablet, daily. --18:45 04/17/21 Orin Pierson R.N. New cardiac med does not know name. --18:46 04/17/21 Orin Pierson R.N.AllergiesPenicillins.Seafood. --18:45 04/17/21 Orin Pierson R.N.PROBLEMS:Cancer: Active. (Lung, mets to bones). --18:46 04/17/21 Orin Pierson R.N. 2 Clinical Report - Nurses [facility] Emergency Department [address] [place] [address] Phone #: ext- [phone] 04/17/2021 18:21 [id number] Sex[facility] F : 1965 Age: 55yDVT - Deep Venous Thrombosis.COPD - Chronic Obstructive Pulmonary Disease.Heart Disease.Hypertension.Hemoptysis.Atrial Fibrillation.Anemia.Back Injury.Chronic Back Pain.Cancer.Hypokalemia.Pulmonary Embolism.Pneumonia.Reflux.TIA - Transient Ischemic Attack.Spinal Fracture.Lung Cancer.Lower Extremity Pain.Intervertebral Disc Disease.Metabolic disease: (Bone).Palpitations. --18:46 04/17/21 Orin Pierson R.N.ADDITIONAL SURGERIES:Appendectomy.Back Surgery (Rods in t spine, crushed t7 t8).Dilatation Curettage.Foot surgery.Heel spur.Right heel spur.Septoplasty.Tonsillectomy.Tubal Ligation. --18:46 04/17/21 Orin Pierson R.N.HistoryPAST MEDICAL HX: Immunizations: up-to-date. The patient is post- menopausal.SOCIAL HX: Smoker- current status unknown (quit 2018). Occasional alcohol use. No drug use. Shewas offered HIV testing but declined and hepatitis C testing but declined. She has not traveled outside the[place].Infectious disease exposure: The patient was not exposed to Coronavirus. 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 Patient is not a known carrier of tuberculosis, hepatitis, HIV, MRSA or CRE.SELF HARM ASSESSMENT: Self harm assessment was performed. The patient answered "no" to thequestion(s) "Have you recently felt down, depressed, or hopeless?", "Do you have thoughts of harming orkilling yourself?", "Do you have a plan for harming or killing yourself?", "Have you recently had thoughts 3 Clinical Report - Nurses [facility] Emergency Department [address] [place] [address] Phone #: ext- [phone] 04/17/2021 18:21 Patient: CHANTALE SOLOMON Sex: F : 1965 Age: 55y about harming or killing others?", "Do you have any dangerous items in your possession?", "Have you noticed less interest or pleasure in doing things?", "Are you here because you tried to hurt yourself?" and "Have you ever tried to hurt yourself before today?". ABUSE ASSESSMENT: Abuse assessment. Abuse denied. No suspicion of abuse. No report of abuse. NUTRITIONAL RISK ASSESSMENT: The nutritional risk assessment revealed no deficiencies. FUNCTIONAL ASSESSMENT: Functional assessment: no impairments noted. LEARNING NEEDS ASSESSMENT: The learning needs assessment revealed no barriers. FALL RISK ASSESSMENT: Fall risk assessment completed. No risk factors identified. SKIN INTEGRITY ASSESSMENT: Skin integrity risk assessment completed. No skin integrity risk identified. --18:51 04/17/21 Orin Pierson R.N. Interventions Identification band on patient. To treatment room. --18:51 04/17/21 Orin Pierson R.N.PHYSICAL [id number] 04/17/21. To room via wheelchair. Patient gowned.GENERAL / NEURO / PSYCH: Alert. Oriented X 4. Appears in no acute distress.HEENT: No facial asymmetry noted. Mucous membranes are pink.RESPIRATORY: Respirations not labored. Chest nontender. Rhonchi present in the right lung baseanteriorly; rhonchi present in the left lung base anteriorly.CVS: Capillary refill less than 2 seconds. Pulses within normal limits.GI / : Abdomen soft and nontender and normal bowel sounds.SKIN: Skin intact. Skin is warm and dry. Normal skin turgor. --19:08 04/17/21 James Youngblood R.N.NURSING PROGRESS NOTESOxygen administered at 2 liters. radiation physicist and NIBP monitor placed on patient. Patient gowned.Reassurance given. Patient identifiers checked. Call light placed in reach. Side rails up x 2. Bedplaced in lowest position. Brakes of bed on. Care transferred. --18:51 04/17/21 Orni Pierson R.N. 19:06 04/17/2021 Site #1 started via IV in the left antecubital space with an 20g angiocath, with aseptic technique and good blood return; one attempt. Blood drawn: rainbow set. Saline lock flushed with saline. --19:06 04/17/21 Lynette Harris EKG time: (19:01 04/17/2021). EKG was performed by a nurse and shown to the ED physician. --19:06 04/17/21 Lynette Harris Finger stick glucose: 109 mg/dL; performed by nurse; result shown to the ED physician. --19:07 04/17/21 Lynette Harris 4 Clinical Report - Nurses [facility] Emergency Department [address] [place] [address] Phone #: ext- [phone] 04/17/2021 18:21 ------- Patient: CHANTALE SOLOMON Sex: F : 1965 Age: 55y 19:13 04/17/2021 Cardizem (dilTIAZem HCl) IVP 10 mg given over 5 minute(s) via site #1. Allergies verified and confirmed 5 rights. IV patency established. IV site checked: no pain, redness, or swelling. IV flushed thoroughly pre- and post-medication administration. IVP given by RN. Information reviewed with patient. Verbalizes understanding. --19:04/17/21 Jacquelyn Chanel R.N. 19:13 04/17/2021 Started bag #1 1000 mL IV Fluids NS; at 150 mL/hr over 6 hour(s) via site #1 via IV pump. Allergies verified and confirmed 5 rights. IV patency established. IV site checked: no pain, redness, or swelling. IV flushed thoroughly pre- and post-medication administration. Information reviewed with patient. Verbalizes understanding. --:04/17/21 Jacquelyn Chanel R.N. EKG ti me: (:04/17/2021). EKG was performed by a nurse and shown to the ED physician. --:04/17/21 Jacquelyn Chanel R.N. 20:04/17/21. BP: 113/73. MAP: 86. HR: 94. RR: 19. O2 saturation: 100%. Pain level now: 0/10. --20:04/17/21 James Youngblood R.N. 20:22 04/17/21. Cardiac rhythm: sinus tachycardia; no ectopy noted (102 atrial rate). Reassurance given. Reassessment acuity: LEVEL 3. Reassessment after medication administered. No adverse reaction. She reports no complaints, she is calm and resting quietly and she has had no adverse reaction. Overall patient status is improved- she states feels better. RESPIRATORY: No respiratory distress. Two patient identifiers checked. Call light placed in reach. Side rails up x 2. Bed placed in lowest position. Brakes of bed on. --20:04/17/21 James Youngblood R.N. EKG time: (20:43 04/17/2021). EKG was performed by a nurse and shown to the ED physician. --:43 04/17/21 Jacquelyn Chanel R.N. 20:56 04/17/2021 IV Fluids NS via IV site #1 Discontinued: STOPPED. Total amount infused: 300 mL. IV patency established. IV site checked: no pain, redness, or swelling. IV flushed thoroughly. --21:04/17/21 Lynette Harris.DISPOSITION / DISCHARGE 20:50 04/17/2021 Site #1 removed upon discharge. Catheter intact. Bandaid applied. --21:00 04/17/21 Lynette Harris Departure time: 21:01 04/17/2021. Condition at departure: improved. No learning barriers present. Discharge instructions provided and reviewed with the patient. Reviewed warnings. Reviewed medication(s). Reviewed referrals. Patient verbalized understanding. Written instructions provided in Lithuanian. The patient was discharged by the physician. She was discharged home and accompanied by spouse. She left ambulatory and via private vehicle. Spouse driving. --21:01 04/17/21 Lynette Harris 21:00 04/17/21. BP: 118/73. HR: 99. RR: 24. O2 saturation: 100%. Temp: 97.7 F. Pain level now 0/10. --21:01 04/17/21 Lynette Harris. 5 Clinical Report - Nurses [facility] Emergency Department [address] [place] [address] Phone #: ext- [phone] 04/17/2021 18:21 [id number] Sex: F : 1965 Age: 55yLocked/Released at 04/17/2021 21:01 by Lynette Harris Name Value Range Interpretation Code Description Data Maura rce(s) Supporting Document(s) ID Date Data Source [id number] 04/17/2021 06:22:00 PM EDT [facility] 1 Clinical Report - Physicians/Mid Levels [facility] Emergency Department [address] [place] [address] Phone #: ext- [phone] 04/17/2021 18:21 Patient: CHANTALE SOLOMON Sex: F : 1965 Age: 55y Time Seen: 18:41 04/17/2021; initial patient contact, initial documentation. Arrived- By private vehicle. Historian- patient. Disposition decision: 20:46 04/17/2021.HISTORY OF PRESENT ILLNESS Chief Complaint: PALPITATIONS. FAST HEART RATE. It is described as a fast and pounding heart beat. She complains of dizziness. This started just prior to arrival and is still present (persistent). Onset during rest. No history of caffeine use prior to onset, decongestants use prior to onset, cocaine use prior to onset or amphetamine use prior to onset. It was abrupt in onset. Modifying factors. Not worsened by anything. Not relieved by anything. No chest pain or discomfort, difficulty breathing, sweating episodes or fainting episodes. No dizziness, tingling or muscle spasms. ( Patient has a history of atrial fibrillation and is on cardizem as well as xarelto who presented to the Er with sudden onset of rapid heart rate of 180. she had 2 episodes of diarrhea prior to coming to the Er. denies fevers or vomiting patient was in atrial fibrillation on 1 week ago and prescribed medication by DR Todd. took the medication today but she went to atrial fibrillation with RVR).REVIEW OF SYSTEMSNo fever, chills, cough, orthopnea or calf pain. No enlarged lymph nodes, abnormal bleeding, missedperiods, headache or sore throat. No blurred vision, nausea, abdominal pain, difficulty with urination orskin rash. No depression, trouble sleeping, vomiting or bloody stools. The patient has had diarrhea butnot had a poor appetite. All other systems reviewed and are negative.PAST HISTORYSee nurses notes. Problems: Cancer [Active]. (Lung, mets to bones) DVT - Deep Venous Thrombosis. COPD - Chronic Obstructive Pulmonary Disease. Heart Disease. Hypertension. Hemoptysis. Atrial Fibrillation. Anemia. Back Injury. Chronic Back Pain. Cancer. Hypokalemia. Pulmonary Embolism. Pneumonia. Reflux. TIA - Transient Ischemic Attack. 2 Clinical Report - Physicians/Mid Levels [facility] Emergency Department [address] [place] [address] Phone #: ext- [phone] 04/17/2021 18:21 Patient: CHANTALE SOLOMON Sex: F : 1965 Age: 55y Spinal Fracture. Lung Cancer. Lower Extremity Pain. Intervertebral Disc Disease. Metabolic disease. (Bone) Palpitations. Additional Surgeries: Appendectomy. Back Surgery. (Rods in t spine, crushed t7 t8) Dilatation Curettage. Foot surgery. Heel spur. Right heel spur. Septoplasty. Tonsillectomy. Tubal Ligation. Medications: New cardiac med does not know name. Breo Ellipta Inhalation 1 puff, daily. dilTIAZem HCl Oral 180 mg, daily at bedtime. Folic Acid Oral (Tablet 800 mcg) 1 tablet, daily. Furosemide Oral 20 mg, daily. Magnesium Oral 1000mg , daily. Pantoprazole Sodium Oral 40 mg, daily. Potassiu m Oral 10 meq, 2x a day. Spiriva HandiHaler Inhalation 2 puffs, daily. Xarelto Oral (Tablet 10 mg) 1 tablet, daily. Allergies: Penicillins. Seafood.SOCIAL HISTORYFormer smoker, end date 2017. Occasional alcohol use. No drug use.ADDITIONAL NOTESThe nursing notes have been reviewed.PHYSICAL EXAMVital Signs: 04/17/2021 18:43 BP: 118/84. MAP: 95. HR: 117. RR: 24. O2 saturation: 99% on nasalcannula at 2 liters/minute. Temp: 99.1 F. Pain level now: 0/10. Have been reviewed. Oxygen saturationnormal.Appearance: Alert. Oriented X3. No acute distress. 3 Clinical Report - Physicians/Mid Levels [facility] Emergency Department [address] [place] [address] Phone #: ext- [phone] 04/17/2021 18:21 Patient: CHANTALE SOLOMON Sex: F : 1965 Age: 55y Eyes: Pupils equal, round and reactive to light. Eyes normal inspection. ENT: Pharynx normal. Neck: Normal inspection. Neck supple. CVS: Tachycardia. Abnormal rhythm, which is irregularly irregular (ventricular rate = 118). Respiratory: No respiratory distress. Painless inspiration. Breath sounds normal. Chest nontender. Abdomen: Soft and nontender. Bowel sounds normal. Obese. Back: Normal external inspection. No CVA tenderness. Skin: Skin warm and dry. Normal skin color. No rash. Normal skin turgor. Extremities: Extremities exhibit normal ROM. No lower extremity edema. Neuro: Oriented X 3. No motor deficit. No sensory deficit.LABS, X-RAYS, AND EKGEKG: EKG time: 19:00 04/17/2021. Atrial fibrillation (narrow-complex) (118 ventricular rate). LVH.lateral ischemia. Changes present when compared to prior EKG. (04/01/2021). The study has beeninterpreted contemporaneously by me. The study has been independently viewed by me. (new atrialfibrillation). Interpretation time: 19:10 04/17/2021.EKG #2: EKG time: 19:20 04/17/2021. Atrial fibrillation (narrow- complex) (ventricular rate 99). LVH.Non-specific ST segment / T wave abnormalities. EKG unchanged when compared with prior EKG. (20minutes ago except rate is slower after 10 mg of cardizem). The study has been interpretedcontemporaneously by me. Interpretation time: 19:28 04/17/2021.Chest X-ray: (Isma carcamo Neal - 04/17/2021 7:03:08 PMIncreasing left lung consolidation likely due to atelectasis and/or effusion.). The X-rays were interpretedby the radiologist. A comparison with prior films reveals that the findings are unchanged.Laboratory Tests: BNP: (SARAH: 04/17/2021 18:48) ( MsgRcvd 04/17/2021 19:56) Final results Test Result Flag Units (Reference) BNP 750 H PG/ML (0 - 125) CBC w Diff: (SARAH: 04/17/2021 18:48) ( MsgRcvd 04/17/2021 19:02) Final results Test Result Flag Units (Reference) CBC W/AUTOMATED DIFF COMPLETE BLOOD COUNT WBC 13.5 H 10/uL (4.2 - 11.0) RBC 3.46 L 10/uL (4.20 - 5.40) HEMOGLOBIN 11.8 L g/dL (12.0 - 16.0) HEMATOCRIT 35.2 L % (37.0 - 47.0) MCV 101.7 H fL (81.0 - 101) MCH 34.1 H pg (27.0 - 34.0) MCHC 33.5 g/dL (31.0 - 36.0) RDW 18.5 H % (11.5 - 14.5) PLATELETS 319 10/uL (150 - 450) MPV 8.7 fL (7.4 - 10.4) NEUT 83.7 H % (37.0 - 80.0) LYMPH 11.4 L % (25.0 - 40.0) MONO 2.5 L % (3.0 - 8.0) EOS 1.8 % (0.0 - 7.0) BASO 0.1 % (0.0 - 2.5) %IG 0.5 H % (0.0 - 0.0) %NRBC 0.0 % (0.0 - 0.0) 4 Clinical Report - Physicians/Mid Levels [facility] Emergency Department [address] [place] [address] Phone #: ext- [phone] 04/17/2021 18:21 Patient: CHANTALE SOLOMON Sex: F : 1965 Age: 55y #NEUT 11.25 H 10/uL (2.00 - 6.90) #LYMPH 1.53 10/uL (0.60 - 3.40) #MONO 0.34 10/uL (0.00 - 0.90) #EOS 0.24 10/uL (0.00 - 0.70) #BASO 0.02 10/uL (0.00 - 0.20) #IG 0.07 10/uL (0.00 - 0.10) #NRBC 0.00 10/uL (0.00 - 0.00) MANUAL DIFF NOT INDICATED RBC MORPH NOT INDICATEDCMP: (SARAH: 04/17/2021 18:48) ( MsgRcvd 04/17/2021 19:56) Final results Test Result Flag Units (Reference) COMPREHENSIVE METABOLIC PANEL COMPREHENSIVE METABOLIC PANEL SODIUM 136 mEq/L (134 - 153) POTASSIUM 3.7 mEq/L (3.6 - 5.0) CHLORIDE 94 L mEq/L (98 - 107) CO2 29 MEQ/L (22 - 30) GLUCOSE 113 H MG/DL (70 - 99) BUN 17 MG/DL (7 - 21) CREATININE 0.8 MG/DL (0.7 - 1.5) BUN/CREAT 21 (8 - 27) TOTAL PROTEIN 6.6 G/DL (6.3 - 8.2) ALBUMIN 4.3 G/DL (3.9 - 5.0) GLOBULIN 2.3 L GM/DL (2.4 - 3.2) A/G RATIO 1.9 (0.8 - 2.0) CALCIUM 9.3 MG/DL (8.4 - 10.2) TOTAL BILI <0.7 MG/DL (0.2 - 1.3) ALKALINE PHOS 117 U/L (38 - 126) SGOT/AST 22 U/L (5 - 40) SGPT/ALT 24 U/L (7 - 56) ANION GAP 13.0 mmol/L (8.0 - 16.0) AGE 55 yrs NON-AA GFR >60 mL/min AFR AMER GFR >60 mL/min Male GFR Interprentation 20-49 yrs >60 mL/min Vhguon30-90 yrs >56 mL/min Normal 60-69 yrs >49 mL/min Normal 70-79yrs>42 mL/min Normal 80 and above >35 mL/min Normal Female GFRInterpretation 20-39 yrs >60 mL/min Normal 40-49 yrs >58 mL/minNormal 50-59 yrs >51 mL/min Normal 60-69 yrs >45 mL/min Bvczvx44-52 yrs >39 mL/min Normal 80 and above >32 mL/min NormalMagnesium: (SARAH: 04/17/2021 18:48) ( [facility] 04/17/2021 19:53) Final results Test Result Flag Units (Reference) MAGNESIUM 1.8 MG/DL (1.7 - 2.2)Troponin-T: (SARAH: 04/17/2021 18:48) ( [facility] 04/17/2021 19:26) Final results Test Result Flag Units (Reference) TROPONIN T 0.02 NG/ML (0.00 - 0.10) TROPONIN T0.1 ng/ml Recommended as the clinical threshold value forTroponin T.TSH: (SARAH: 04/17/2021 18:48) ( [facility] 04/17/2021 19:53) Final results Test Result Flag Units (Reference) TSH 2.85 uIU/mL (0.47 - 5.01) 5 Clinical Report - Physicians/Mid Levels [facility] Emergency Department [address] [place] [address] Phone #: ext- [phone] 04/17/2021 18:21 Patient: CHANTALE SOLOMON Sex: F : 1965 Age: 55y CPK: (SARAH: 04/17/2021 18:48) ( [facility] 04/17/2021 19:32) Final results Test Result Flag Units (Reference) CPK 29 L U/L (30 - 170) PT/INR: (SARAH: 04/17/2021 18:48) ( MsgRcvd 04/17/2021 19:21) Final results Test Result Flag Units (Reference) PROTIME 15.3 SECONDS (11.0 - 15.5) INR 1.19 (0.93 - 1.23) \\BLDo\\INR INTERPRETATION\\BLDx\\ Therapeutic range for Coumadin and related oral anticoagulants. -International Normalized Ratio (INR): 2.0 - 3.0 for Venous Thrombosis, Pulmonary Embolus, Tissue heart valves, Acute NC, Atrial Fibrillation, Valvular heart disease and recurrent Systemic Embolism. -International Normalized Ratio (INR): 2.5 - 3.5 for Mechanical Prosthetic valve..PROGRESS AND PROCEDURESCourse of Care: 20:11 04/17/21. patient was noted to be in atrial fibrillation with RVR of 128/givencardizem 10 mg and heart rate decreased to 96 still in atrial fibrillation. Her troponin is negative and herBNP is elevated at 709. she has an opacified Left lung which is unchanged from previous. spoke withJair Crowder NP of Dr Todd who will call DR Todd 20:46 04/17/21. Patient converted to Normal sinus rhythm. advised to continue her cardizem [address] and to go to her office at (30 am tomorrow. Critical care performed (40 minutes). Time is exclusive of separately billable procedures. Time includes: direct patient care, patient reassessment, interpretation of data (pulse oximetry and prior electrocardiograms), review of patient's medical records, medical consultation and documentation of patient care- see progress notes. Patient counseled in person several times regarding the patient's stable condition, test results, diagnosis and need for follow-up. 20:46. Disposition: Discharged home in good condition (20:47). Condition: good and stable. Discharge decision based on the following: patient's condition is improved; patient is ambulatory; patient's exam is improved; no seriously abnormal test results; improving condition on multiple repeat evaluations; social support is excellent; transportation is available; follow-up is available; clinical impression is consistent with outpatient treatment.CLINICAL IMPRESSION Paroxysmal atrial fibrillation with controlled rate. 6 Clinical Report - Physicians/Mid Levels [facility] Emergency Department [address] [place] [address] Phone #: [phone]- [phone] 04/17/2021 18:21 Patient: CHANTALE SOLOMON Sex: F : 1965 Age: 55yINSTRUCTIONS (cntinue your cardizem 180 and follow up with Geneva Todd tomorrow at 930 am). Your Current Medications: Your current home medications have been reviewed. CONTINUE TAKING THE FOLLOWING MEDICATIONS: Breo Ellipta Inhalation : 1 puff daily. dilTIAZem HCl Oral : 180 mg daily, at bedtime. Folic Acid Oral : Tablet 800 mcg, 1 tablet daily. Furosemide Oral : 20 mg daily. Magnesium Oral : 1000mg daily. New cardiac med does not know name*. Pantoprazole Sodium Oral : 40 mg daily. Potassium Oral : 10 meq 2x a day. Spiriva HandiHaler Inhalation : 2 puffs daily. Xarelto Oral : Tablet 10 mg, 1 tablet daily. Follow-up with: Osmel Alvarez MD, Cardiology, , [address] [place] [address], [id number] Follow up tomorrow. Reason for referral: at 9:30 am.(Electronically signed by Gloria Schneider 04/18/2021 01:17) Name Value Range Interpretation Code Description Data Maura rce(s) Supporting Document(s) ID Date Data Source [id number] 04/18/2021 01:05:00 AM EDT [facility] (Osmel Alvarez MD) Name Value Range Interpretation Code Description Data Maura rce(s) Supporting Document(s) Troponin T.cardiac [Mass/volume] in Serum or Plasma 0.02 ng/mL 0.00-0 .10 [facility] (Osmel Alvarez MD) TROPONIN T 0.1 ng/ml Recommended as the clinical th reshold value for Troponin T. ID Date Data Source [id number] 04/18/2021 01:38:00 AM EDT [facility] Name Value Range Interpretation Code Description Data Maura rce(s) Supporting Document(s) TROPONIN T 0.02 NG/ML 0.00 - 0.10 [facility] T0.1 ng/ml Recommended as the c linical threshold value forTroponin T. ID Date Data Source [id number] 04/17/2021 09:56:00 PM EDT [facility] (Osmel Alvarez MD) Name Value Range Interpretation Code Description Data Maura rce(s) Supporting Document(s) Laboratory test finding (navigational concept) Laboratory test result [facility] (Osmel Alvarez MD) First test?: N~Employed in healthcare?: N~Symptomatic as defined by CDC?: N~Hospitalized?: Y Laboratory test finding (navigational concept) Laboratory test result [facility] (Osmel Alvarez MD) First test?: N~Employed in healthcare?: N~Symptomatic as defined by CDC?: N~Hospitalized?: Y ID Date Data Source [id number] 04/17/2021 09:56:00 PM EDT [facility] Name Value Range Interpretation Code Description Data [facility] rce(s) Supporting Document(s) COVID19 Case rprt NOT DETECTED [facility] This lab was ordered by [facility] and reported by [facility]. ID Date Data Source [id number] 04/17/2021 10:37:00 PM EDT [facility] NOT DETECTEDNOT DETECTED{ PROC EDURAL CONTROL VALID KIT LOT # _[id number] 04/17/21.AB . KIT EXP DATE _04.22.21 04/17/21.AB . NORMAL RANGE IS NOT DETECTEDNEGATIVE RESULTS [...] rce(s) Supporting Document(s) ID Date Data Source [id number] 04/17/2021 07:56:00 PM EDT [facility] Name Value Range Interpretation Code Description Data Maura rce(s) Supporting Document(s) BNP 750 PG/ML 0 - 125 H [facility] ID Date Data Source [id number] 04/17/2021 07:55:00 PM EDT [facility] Name Value Range Interpretation Code Description Data [facility](s) Supporting Document(s) COMPREHENSIVE METABOLIC PANEL [facility] COMPREHENSIVE METABOLIC PANEL Sodium [Moles/volume] in Serum or Plasma 136 mEq/L 134 - 153 [facility] Potassium [Moles/volume] in Serum or Plasma 3.7 mEq/L 3.6 - 5.0 [facility] Chloride [Moles/volume] in Serum or Plasma 94 mEq/L 98 - 107 L [facility] Carbon dioxide, total [Moles/volume] in Serum or Plasma 29 MEQ/L 22 - 30 [facility] Glucose [Mass/volume] in Serum or Plasma 113 MG/DL 70 - 99 H [facility] BUN 17 MG/DL 7 - 21 [facility] Creatinine [Mass/volume] in Serum or Plasma 0.8 MG/DL 0.7 - 1.5 [facility] BUN/CREAT 21 8 - 27 [facility] Protein [Mass/volume] in Serum or Plasma 6.6 G/DL 6.3 - 8.2 [facility] Albumin [Mass/volume] in Serum or Plasma 4.3 G/DL 3.9 - 5.0 [facility] Globulin [Mass/volume] in Serum by calculation 2.3 GM/DL 2.4 - 3.2 L [facility] A/G RATIO 1.9 0.8 - 2.0 [facility] Calcium [Mass/volume] in Serum or Plasma 9.3 MG/DL 8.4 - 10.2 [facility] Bilirubin.total [Mass/volume] in Serum or Plasma <0.7 MG/DL 0.2 - 1.3 [facility] Alkaline phosphatase [Enzymatic activity/volume] in Serum or Plasma 117 U/L 38 - 126 [facility] Aspartate aminotransferase [Enzymatic activity/volume] in Serum or Plasma 22 U/L 5 - 40 [facility] Alanine aminotransferase [Enzymatic activity/volume] in Seru m or Plasma 24 U/L 7 - 56 [facility] Anion gap 3 in Serum or Plasma 13.0 mmol/L 8.0 - 16.0 [facility] AGE 55 yrs [facility] al NON-AA GFR >60 mL/min [facility] Hosp ital AFR AMER GFR >60 mL/min [facility] Ho spital Male GFR In [...] >32 mL/min Normal ID Date Data Source [id number] 04/17/2021 07:53:00 PM EDT [facility] Name Value Range Interpretation Code Description Data Maura rce(s) Supporting Document(s) Thyrotropin [Units/volume] in Serum or Plasma by Detec tion limit <= 0.05 mIU/L 2.85 uIU/mL 0.47 - 5.01 [facility] ID Date Data Source [id number] 04/17/2021 07:53:00 PM EDT [facility] Value Range Interpretation Code Description Data Maura rce(s) Supporting Document(s) Magnesium [Mass/volume] in Serum or Plasma 1.8 MG/DL 1.7 - 2.2 [facility] ID Date Data Source [id number] 04/17/2021 07:32:00 PM EDT [facility] Value Range Interpretation Code Description Data Maura rce(s) Supporting Document(s) Creatine kinase [Enzymatic activity/volume] in Serum or Plasma 2 9 U/L 30 - 170 L [facility] ID Date Data Source [id number] 04/17/2021 07:26:00 PM EDT [facility] Name Value Range Interpretation Code Description Data [facility](s) Supporting Document(s) TROPONIN T 0.02 NG/ML 0.00 - 0.10 [facility] spital TROPONIN T0.1 ng/ml Recommended as the c linical threshold value forTroponin T. ID Date Data Source [id number] 04/17/2021 07:21:00 PM EDT [facility] Name Value Range Interpretation Code Description Data [facility] Supporting Document(s) Prothrombin time (PT) 15.3 SECONDS 11.0 - 15.5 [facility] INR in Platelet poor plasma by Coagulation assay 1.19 0.93 - 1. 23 [facility] \\BLDo\\INR INTERPRETATION\\BLDx\\ Therapeutic range for Coumadin and related oral anticoagulants. - International Normalized Ratio (INR): 2.0 - 3.0 for Venous Thrombosis, Pulmonary Embolus, Tissue heart valves, Acute NC, Atrial Fibrillation, Valvular heart disease and recurrent Systemic Embolism. -International Normalized Ratio (INR): 2.5 - 3.5 for Mechanical Prosthetic valve. ID Date Data Source [id number] 04/17/2021 07:02:00 PM EDT [facility] Name Value Range Interpretation Code Description Data [facility](s) Supporting Document(s) CBC W/AUTOMATED DIFF [facility] COMPLETE BLOOD COUNT Leukocytes [#/volume] in Blood by Automated count 13.5 10^3/uL 4.2 - 11.0 H [facility] Erythrocytes [#/volume] in Blood by Automated count 3.46 10^6/uL 4. 20 - 5.40 L [facility] Hemoglobin [Mass/volume] in Blood 11.8 g/dL 12.0 - 16.0 L [facility] Hematocrit [Volume Fraction] of Blood by Automated count 35.2 % 3 7.0 - 47.0 L [facility] Erythrocyte mean corpuscular volume [Entitic volume] b y Automated count 101.7 fL 81.0 - 101 H [facility] Erythrocyte mean corpuscular hemoglobin [Entitic mass] by Automated count 34.1 pg 27.0 - 34.0 H [facility] Erythrocyte mean corpuscular hemoglobin concentration [Mass/volume] by Automated count 33.5 g/dL 31.0 - 36.0 [facility] Erythrocyte distribution width [Ratio] by Automated count 18.5 % 11.5 - 14.5 H [facility] Platelets [#/volume] in Blood by Automated count 319 10^3/uL 150 - 45 0 [facility] Platelet mean volume [Entitic volume] in Blood by Automated count 8.7 fL 7.4 - 10.4 [facility] Neutrophils/100 leukocytes in Blood by Automated count 83.7 % 37. 0 - 80.0 H [facility] Lymphocytes/100 leukocytes in Blood by Manual count 11.4 % 25.0 - 40.0 L [facility] Monocytes/100 leukocytes in Blood by Automated count 2.5 % 3.0 - 8.0 L [facility] Eosinophils/100 leukocytes in Blood by Automated count 1.8 % 0.0 - 7.0 [facility] Basophils/100 leukocytes in Blood by Automated count 0.1 % 0.0 - 2.5 [facility] %IG 0.5 % 0.0 - 0.0 H [facility] Hospit al %NRBC 0.0 % 0.0 - 0.0 [facility] al Neutrophils [#/volume] in Blood by Automated count 11.25 10^3/uL 2. 00 - 6.90 H [facility] Lymphocytes [#/volume] in Blood by Automated count 1.53 10^3/uL 0.60 - 3.40 [facility] Monocytes [#/volume] in Blood by Automated count 0.34 10^3/uL 0.00 - 0.90 [facility] Eosinophils [#/volume] in Blood by Automated count 0.24 10^3/uL 0.00 - 0.70 [facility] Basophils [#/volume] in Blood by Automated count 0.02 10^3/uL 0.00 - 0.20 [facility] #IG 0.07 10^3/uL 0.00 - 0.10 [facility] H ospital #NRBC 0.00 10^3/uL 0.00 - 0.00 [facility] MANUAL DIFF NOT INDICATED [facility] RBC MORPH NOT INDICATED [facility] spital ID Date Data Source [id number] 04/11/2021 09:38:00 AM EDT [facility] (Osmel Alvarez MD) Name Value Range Interpretation Code Description Data Maura rce(s) Supporting Document(s) Magnesium [Mass/volume] in Serum or Plasma 1.5 mg/dL 1.7-2.2 [place] w low normal [facility] (Osmel Alvarez MD) ID Date Data Source [id number] 04/11/2021 09:38:00 AM EDT [facility] (Osmel Alvarez MD) Name Value Range Interpretation Code Description Data Maura rce(s) Supporting Document(s) Laboratory test finding (navigational concept) Laboratory test result [facility] (Osmel Alvarez MD) COMPREHENSIVE METABOLIC PANEL Laboratory test finding (navigational concept) 98 meq/L 98-107 [facility] (Osmel Alvarez MD) Laboratory test finding (navigational concept) 139 meq/L 134-153 [facility] (Osmel Alvarez MD) Laboratory test finding (navigational concept) 4.5 meq/L 3.6-5.0 [facility] (Osmel Alvarez MD) Laboratory test finding (navigational concept) 30 meq/L 22-30 [facility] (Osmel Alvarez MD) Laboratory test finding (navigational concept) 10 mg/dL 7-21 [facility] (Osmel Alvarez MD) Laboratory test finding (navigational concept) 133 mg/dL 7 0-99 Above high normal [facility] (Osmel Alvarez MD) Laboratory test finding (navigational concept) 6.0 g/dL 6 .3-8.2 Below low normal [facility] (Osmel Alvarez MD) Laboratory test finding (navigational concept) 13 8-27 [facility] (Osmel Alvarez MD) Laboratory test finding (navigational concept) 0.8 mg/dL 0.7-1.5 [facility] (Osmel Alvarez MD) Laboratory test finding (navigational concept) 2.4 GM/DL 2.4-3.2 [facility] (Osmel Alvarez MD) Laboratory test finding (navigational concept) 3.6 g/dL 3 .9-5.0 Below low normal [facility] (Osmel Alvarez MD) Laboratory test finding (navigational concept) 1.5 0.8-2.0 [facility] (Osmel Alvarez MD) Laboratory test finding (navigational concept) 9.3 mg/dL 8.4-10.2 [facility] (Osmel Alvarez MD) Laboratory test finding (navigational concept) Laboratory test resu lt 0.2-1.3 [facility] (Osmel Alvarez MD) Laboratory test finding (navigational concept) 104 U/L 38-126 [facility] (Osmel Alvarez MD) Laboratory test finding (navigational concept) 11.0 mmol/L 8.0-16.0 [facility] (Osmel Alvarez MD) Laboratory test finding (navigational concept) 20 U/L 5-40 [facility] (Osmel Alvarez MD) Laboratory [...] Normal 80 and above >32 mL/min Normal Laboratory test finding (navigational concept) 55 yrs [facility] (Osmel Alvarez MD) Laboratory test finding (navigational concept) Laboratory test result [facility] (Osmel Alvarez MD) ID Date Data Source [id number] 04/11/2021 09:38:00 AM EDT [facility] (Osmel Alvarez MD) Name Value Range Interpretation Code Description Data Maura rce(s) Supporting Document(s) Laboratory test finding (navigational concept) Laboratory test result [facility] (Osmel Alvarez MD) COMPLETE BLOOD COUNT Laboratory test finding (navigational concept) 7.2 10^3/uL 4.2-11.0 [facility] (Osmel Alvarez MD) Laboratory test finding (navigational concept) 3.12 10^6/uL 4 .20-5.40 Below low normal [facility] (Osmel Alvarez MD) Laboratory test finding (navigational concept) 10.3 g/dL 1 2.0-16.0 Below low normal [facility] (Osmel Alvarez MD) Laboratory test finding (navigational concept) 33.0 pg 27.0-34.0 [facility] (Osmel Alvarez MD) Laboratory test finding (navigational concept) 101.9 fL 8 1.0-101 Above high normal [facility] (Osmel Alvarez MD) Laboratory test finding (navigational concept) 31.8 % 3 7.0-47.0 Below low normal [facility] (Osmel Alvarez MD) Laboratory test finding (navigational concept) 436 10^3/uL 150-450 [facility] (Osmel Alvarez MD) Laboratory test finding (navigational concept) 18.5 % 1 1.5-14.5 Above high normal [facility] (Osmel Alvarez MD) Laboratory test finding (navigational concept) 32.4 g/dL 31.0-36.0 [facility] (Osmel Alvarez MD) Laboratory test finding (navigational concept) 78.6 % 37.0-80.0 [facility] (Osmel Alvarez MD) Laboratory test finding (navigational concept) 8.9 fL 7.4-10.4 [facility] (Osmel Alvarez MD) Laboratory test finding (navigational concept) 11.4 % 2 5.0-40.0 Below low normal [facility] (Osmel Alvarez MD) Laboratory test finding (navigational concept) 0.1 % 0.0-2.5 [facility] (Osmel Alvarez MD) Laboratory test finding (navigational concept) 0.0 % 0.0-7.0 [facility] (Osmel Alvarez MD) Laboratory test finding (navigational concept) 8.9 % 3.0-8.0 Above high normal [facility] (Osmel Alvarez MD) Laboratory test finding (navigational concept) 5.66 10^3/uL 2.00-6.90 [facility] (Osmel Alvarez MD) Laboratory test finding (navigational concept) 1.0 % 0.0-0.0 Above high normal [facility] (Osmel Alvarez MD) Laboratory test finding (navigational concept) 0.0 % 0.0-0.0 [facility] (Osmel Alvarez MD) Laboratory test finding (navigational concept) 0.82 10^3/uL 0.60-3.40 [facility] (Osmel Alvarez MD) Laboratory test finding (navigational concept) 0.00 10^3/uL 0.00-0.70 [facility] (Osmel Alvarez MD) Laboratory test finding (navigational concept) 0.64 10^3/uL 0.00-0.90 [facility] (Osmel Alvarez MD) Laboratory test finding (navigational concept) 0.01 10^3/uL 0.00-0.20 [facility] (Osmel Alvarez MD) Laboratory test finding (navigational concept) 0.07 10^3/uL 0.00-0.10 [facility] (Osmel Alvarez MD) Laboratory test finding (navigational concept) Laboratory test result [facility] (Osmel Alvarez MD) Laboratory test finding (navigational concept) 0.00 10^3/uL 0.00-0.00 [facility] (Osmel Alvarez MD) Laboratory test finding (navigational concept) Laboratory test result [facility] (Osmel Alvarez MD) ID Date Data Source [id number] 04/11/2021 10:57:00 AM EDT [facility] Name Value Range Interpretation Code Description Data Maura rce(s) Supporting Document(s) Magnesium [Mass/volume] in Serum or Plasma 1.5 MG/DL 1.7 - 2.2 L [facility] ID Date Data Source [id number] 04/11/2021 10:57:00 AM EDT [facility] Name Value Range Interpretation Code Description Data Maura rce(s) Supporting Document(s) COMPREHENSIVE METABOLIC PANEL [facility] COMPREHENSIVE METABOLIC PANEL Sodium [Moles/volume] in Serum or Plasma 139 mEq/L 134 - 153 [facility] Potassium [Moles/volume] in Serum or Plasma 4.5 mEq/L 3.6 - 5.0 [facility] Chloride [Moles/volume] in Serum or Plasma 98 mEq/L 98 - 107 [facility] Carbon dioxide, total [Moles/volume] in Serum or Plasma 30 MEQ/L 22 - 30 [facility] Glucose [Mass/volume] in Serum or Plasma 133 MG/DL 70 - 99 H [facility] BUN 10 MG/DL 7 - 21 [facility] al Creatinine [Mass/volume] in Serum or Plasma 0.8 MG/DL 0.7 - 1.5 [facility] BUN/CREAT 13 8 - 27 [facility] Protein [Mass/volume] in Serum or Plasma 6.0 G/DL 6.3 - 8.2 L [facility] Albumin [Mass/volume] in Serum or Plasma 3.6 G/DL 3.9 - 5.0 L [facility] Globulin [Mass/volume] in Serum by calculation 2.4 GM/DL 2.4 - 3.2 [facility] A/G RATIO 1.5 0.8 - 2.0 [facility] Calcium [Mass/volume] in Serum or Plasma 9.3 MG/DL 8.4 - 10.2 [facility] Bilirubin.total [Mass/volume] in Serum or Plasma <0.7 MG/DL 0.2 - 1.3 [facility] Alkaline phosphatase [Enzymatic activity/volume] in Serum or Plasma 104 U/L 38 - 126 [facility] Aspartate aminotransferase [Enzymatic activity/volume] in Serum or Plasma 20 U/L 5 - 40 [facility] Alanine aminotransferase [Enzymatic activity/volume] in Seru m or Plasma 12 U/L 7 - 56 [facility] Anion gap 3 in Serum or Plasma 11.0 mmol/L 8.0 - 16.0 [facility] AGE 55 yrs [facility] al NON-AA GFR >60 mL/min [facility] ital AFR AMER GFR >60 mL/min [facility] Ho spital Male GFR In [...] >32 mL/min Normal ID Date Data Source [id number] 04/11/2021 10:02:00 AM EDT [facility] Name Value Range Interpretation Code Description Data Maura rce(s) Supporting Document(s) CBC W/AUTOMATED DIFF [facility] COMPLETE BLOOD COUNT Leukocytes [#/volume] in Blood by Automated count 7.2 10^3/uL 4.2 - 1 1.0 [facility] Erythrocytes [#/volume] in Blood by Automated count 3.12 10^6/uL 4. 20 - 5.40 L [facility] Hemoglobin [Mass/volume] in Blood 10.3 g/dL 12.0 - 16.0 L [facility] Hematocrit [Volume Fraction] of Blood by Automated count 31.8 % 3 7.0 - 47.0 L [facility] Erythrocyte mean corpuscular volume [Entitic volume] b y Automated count 101.9 fL 81.0 - 101 H [facility] Erythrocyte mean corpuscular hemoglobin [Entitic mass] by Automated count 33.0 pg 27.0 - 34.0 [facility] Erythrocyte mean corpuscular hemoglobin concentration [Mass/volume] by Automated count 32.4 g/dL 31.0 - 36.0 [facility] Erythrocyte distribution width [Ratio] by Automated count 18.5 % 11.5 - 14.5 H [facility] Platelets [#/volume] in Blood by Automated count 436 10^3/uL 150 - 45 0 [facility] Platelet mean volume [Entitic volume] in Blood by Automated count 8.9 fL 7.4 - 10.4 [facility] Neutrophils/100 leukocytes in Blood by Automated count 78.6 % 37. 0 - 80.0 [facility] Lymphocytes/100 leukocytes in Blood by Manual count 11.4 % 25.0 - 40.0 L [facility] Monocytes/100 leukocytes in Blood by Automated count 8.9 % 3.0 - 8.0 H [facility] Eosinophils/100 leukocytes in Blood by Automated count 0.0 % 0.0 - 7.0 [facility] Basophils/100 leukocytes in Blood by Automated count 0.1 % 0.0 - 2.5 [facility] %IG 1.0 % 0.0 - 0.0 H [facility] Hospit al %NRBC 0.0 % 0.0 - 0.0 [facility] al Neutrophils [#/volume] in Blood by Automated count 5.66 10^3/uL 2.00 - 6.90 [facility] Lymphocytes [#/volume] in Blood by Automated count 0.82 10^3/uL 0.60 - 3.40 [facility] Monocytes [#/volume] in Blood by Automated count 0.64 10^3/uL 0.00 - 0.90 [facility] Eosinophils [#/volume] in Blood by Automated count 0.00 10^3/uL 0.00 - 0.70 [facility] Basophils [#/volume] in Blood by Automated count 0.01 10^3/uL 0.00 - 0.20 [facility] #IG 0.07 10^3/uL 0.00 - 0.10 [facility] H ospital #NRBC 0.00 10^3/uL 0.00 - 0.00 [facility] MANUAL DIFF NOT INDICATED [facility] RBC MORPH NOT INDICATED [facility] spital ID Date Data Source [id number] 04/03/2021 01:53:00 [place] [address] RESPIRATORY CARE REPORT ==== ---------NAME------- NUMBER SEX AGE ADMIT DISC. XRAY# F/C CYNDY Daniels [id number] F [id number] 04/01/21 04/01/21 [id number] [facility] E/R DATE OF : 1965 M/R# [id number] PH#: [phone] TR-07 LOCATION: EMERGENCY DEPT EKG [id number] COMP LETE:04/02/21 01:36 [place] 12905 PHYSICIAN: WYATT Name Value Range Interpretation Code Description Data Maura rce(s) Supporting Document(s) ID Date Data Source [id number] 04/03/2021 01:52:00 [place] [address] RESPIRATORY CARE REPORT ==== ---------NAME------- NUMBER SEX AGE ADMIT DISC. XRAY# F/C CYNDY Daniels [id number] F [id number] 04/01/21 04/01/21 [id number] [facility] E/R DATE OF : 1965 M/R# [id number] PH#: [phone] TR-07 LOCATION: EMERGENCY DEPT EKG [id number] COMP LETE:04/02/21 01:36 VMT 86700 PHYSICIAN: WYATT Name Value Range Interpretation Code Description Data Maura rce(s) Supporting Document(s) ID Date Data Source [id number] 04/03/2021 10:31:00 [place] [address] PHONE: [phone] FAX: [phone] Name .................. : SOLOMON CHANTALE E Acct Number.................. : [id number] ROOM. ................. : TR-07 MR Number ................... : [id number] Stay type ............. : E/R Discharge Date......... ... : 04/01/21 Admit Date ......... : 04/01/21 Admit Phys .................... : WYATT Date of ....... : 1965 Family Phys ................... : REGINE GAIL Phone .................. : [phone] Age ................................ : 55 Film# .................. .:[id number] Sex ................................. : F Unsigned transcriptions are preliminary reports and do not represent a medical or legal document CHEST PORTABLE [id number] COMPLETE:04/01/21 18:47 KATINA 38140 Reason(s): palpitations PORTABLE CHEST X-RAY: CLINICAL HISTORY: Palpitations. COMPARISON: Chest CT of 03/13/21, chest radiographs of 01/31/21. FINDINGS: Right IJ Port-a-Cath remains in place. Heart size is unchanged. Post treatment change in the left lung apex, similar to past examination. Clear right lung. No acute or focal osseous abnormality. IMPRESSION: No change. No new abnormality. Electronically Reviewed and Signed By Dorian Brewer MD , 04/03/21 10:31, APM Transcribe Initials: REYES , Transcribe Date: 04/02/21 02:03, Dictation Date: Copy for: [facility] via modem Copy for: 710 MED REC DISCHARGED Page 1 of 1 Name Value Range Interpretation Code Description Data Maura rce(s) Supporting Document(s) ID Date Data Source [id number] 04/01/2021 02:22:00 PM EDT [facility] 1 OrderSheet [facility] Emergency Department [address] [place] [address] Phone #: ext- [phone] 04/01/2021 14:19 Patient: CHANTALE SOLOMON Sex: F : 1965 Age: 55yWEIGHT:79.3 kg (S) HEIGHT:60 inches (S) BMI:34.1ALLERGIES: Penicillins, SeafoodCHIEF COMPLAINT: palpitations, fast heart rateDIAGNOSIS: Hypokalemia, Palpitations, Atrial fibrillationLAB ORDERSOrder Description Priority Entered Acknowledged InitialedCBC w Diff STAT 14:04/01/2021 14:33 Gloria Bolton RN ;CMP STAT 14:04/01/2021 14:33 Gloria Bolton RN ;Lipase STAT 14:04/01/2021 14:33 Gloria Bolton RN ;PT/PTT STAT 14:04/01/2021 14:33 Gloria Bolton RN ;Troponin-T STAT 14:04/01/2021 14:33 Gloria Bolton RN ;DIAGNOSTIC STUDY ORDERSOrder Description Priority Entered Acknowledged InitialedChest Portable 1 STAT 14:04/01/2021 14:33 Yusef (Oxygen? Gloria Schneider RN(Yes)) ; Reason for Study: palpitationsMEDICATION/IV/DRIP/FLUID ORDERSOrder Description Priority Entered Acknowledged InitialedCardizem IVP 20 14:29 04/01/2021 14:56 Francineymg (NOW x1) Gloria Schneider RN ;NS IV : 250 mL/hr 14:30 04/01/2021 14:56 Gloria Bolton RN ; 2 OrderSheet [facility] Emergency Department [address] [place] [address] Phone #: ext- [phone] 04/01/2021 14:19 Patient: CHANTALE SOLOMON Sex: F : 1965 Age: 55yCardizem Drip IV : 15:14 04/01/2021 Cancelled: Other 16:55 Yandel Mendes10 mg/hr (Add 125 Gloria Schneider RNmg (25 mL) to 100 ;mL NS to get 125mg/125 mL (1mg/mL))Potassium Chloride 16:12 04/01/2021 16:26 FrancineyLiquid PO 40 meq Gloria Schneider RN(NOW) ;GENERAL ORDERSOrder Description Priority Entered Acknowledged InitialedBlood Pressure 14:04/01/2021 14:32 FrancineyMonitor Gloria Schneider RN ;Boat Joiner 14:04/01/2021 14:32 Yandel(continuous) Gloria Schneider RN ;EKG 14:04/01/2021 14:32 Gloria Bolton RN ;NPO 14:04/01/2021 14:32 Gloria Bolton RN ;Obtain Old EKG 14:04/01/2021 14:32 Gloria Bolton RN ;Obtain Old Records 14:04/01/2021 14:32 Gloria Bolton RN ;Oxygen (2 L/min) 14:04/01/2021 14:32 Yandel(APUL) (Titrate to O2 Glorai Schneider RNSat >95%) ;Oxygen titrate to 14:04/01/2021 14:32 Yandel92% Gloria Schneider RN ;Pulse oximeter 14:04/01/2021 14:32 Yandel(Continuous) Gloria Schneider RN ;Saline Lock 14:04/01/2021 14:33 Gloria Bolton RN ;Vitals 14:04/01/2021 14:32 Yandel 3 OrderSheet [facility] Emergency Department [address] [place] [address] Phone #: ext- [phone] 04/01/2021 14:19 Patient: CHANTALE SOLOMON Sex: F : 1965 Age: 55y Gloria Schneider RN ;EKG 16:08 04/01/2021 16:17 Gloria Bolton RN ;[Electronically signed by Yandel Mendes RN (19:31 04/01/2021)][Electronically signed by Gloria Schneider (21:28 04/01/2021)][Electronically locked by Yandel Mendes RN (19:31 04/01/2021)] Name Value Range Interpretation Code Description Data Maura rce(s) Supporting Document(s) ID Date Data Source [id number] 04/01/2021 02:22:00 PM EDT [facility] 1 Medication Reconciliation Report [facility] Emergency Department [address] [place] [address] Phone #: ext- [phone] 04/01/2021 14:19 Patient: CHANTALE SOLOMON Sex: F : 1965 Age: 55yWeight: 79.3 kgHeight/Length: 60 in.BMI: 34.1ALLERGIES: Penicillins, SeafoodThe patient's Home Medications are listed below:CONTINUE TAKING THE FOLLOWING MEDICATIONS: Breo Ellipta Inhalation 1 puff, daily dilTIAZem HCl Oral 180 mg, daily, at bedtime Folic Acid Oral (800 mcg) 1 tablet, daily Furosemide Oral 20 mg, daily Levaquin Oral 500 mg, daily Magnesium Oral 1000mg , daily Pantoprazole Sodium Oral 40 mg, daily Potassium Oral 10 meq, 2x a day Spiriva HandiHaler Inhalation 2 puffs, daily Xarelto Oral (10 mg) 1 tablet, dailyThe source(s) of the original Home Medication information:patientThe following Medications were given to the patient in the Emergency Department:NS [IV] IV Fluids bolus 0, then 250 mL/hr, administered: 14:46 04/01/2021ardizem [IVP] IVP 20 mg, administered: 14:46 04/01/2021 2 Medication Reconciliation Report [facility] Emergency Department [address] [place] [address] Phone #: ext- [phone] 04/01/2021 14:19 Patient: CHANTALE SOLOMON Sex: F : 1965 Age: 55yPOTASSIUM CHLORIDE LIQUID PO PO 40 meq, administered: 16:26 04/01/2021The following Medications were prescribed to the patient:None. Name Value Range Interpretation Code Description Data Maura rce(s) Supporting Document(s) ID Date Data Source [id number] 04/01/2021 02:22:00 PM EDT [facility] 1 Medication Administration Record [facility] Emergency Department [address] [place] [address] Phone #: ext- [phone] 04/01/2021 14:19 Patient: CHANTALE SOLOMON Sex: F : 1965 Age: 55yWeight: 79.3 kgHeight/Length: 60 inBMI: 34.1ALLERGIES: Penicillins, Seafood Date/Time Medication Administered Medication OrderedGiven CARDIZEM [IVP] (DILTIAZEM HCL) Cardizem IVP 20 mg (NOW x1)14:46 04/01/2021 Dose: 20 mg IVRicardo Mendes RN Site: #1 left wristStart NS [IV] NS IV : 250 mL/hr14:46 04/01/2021 Dose: IV FluidsYandel Mendes RN Rate: 250 mL/hr over 4 hour(s)---- Dispensed: 1000 mL bagStop Site: #1 left wrist16:40 04/01/2021Terherb Mendes RNGiven POTASSIUM CHLORIDE LIQUID PO Potassium Chloride Liquid PO 4016:26 04/01/2021 Dose: 40 meq Syrup/Liquid PO meq (NOW)Yandel Mendes RN Name Value Range Interpretation Code Description Data Maura rce(s) Supporting Document(s) ID Date Data Source [id number] 04/01/2021 02:22:00 PM EDT [facility] 1 General Instructions [facility] Emergency Department [address] [place] [address] Phone #: ext- [phone] 04/01/2021 14:19 Patient: CHANTALE SOLOMON Sex: F : 1965 Age: 55yParoxysmal atrial fibrillation with controlled rate.Palpi tations.HypokalemiaINSTRUCTIONS(you had an episode of atrial fibrillation and converted to normal sinus rhythm. your potassium was low at3/2. you were given potassium in the ER. follow up with DR Todd in 2 days).Your Current Medications: Your current home medications have been reviewed.CONTINUE TAKING THE FOLLOWING MEDICATIONS:Breo Ellipta Inhalation : 1 puff daily.dilTIAZem HCl Oral : 180 mg daily, at bedtime.Folic Acid Oral : Tablet 800 mcg, 1 tablet daily.Furosemide Oral : 20 mg daily.Levaquin Oral : 500 mg daily, Started: 01/31/2021.Magnesium Oral : 1000mg daily.Pantoprazole Sodium Oral : 40 mg daily.Potassium Oral : 10 meq 2x a day.Spiriva HandiHaler Inhalation : 2 puffs daily.Xarelto Oral : Tablet 10 mg, 1 tablet daily.Follow-up:Follow up with your healthcare provider in two days. Reason for referral: evaluation. Summary of careprovided to patient via paper. ADDITIONAL INFORMATIONAbout Arrhythmias 2 General Instructions [facility] Emergency Department [address] [place] [address] Phone #: ext- [phone] 04/01/2021 14:19 Patient: CHANTALE SOLOMON Sex: F : 1965 Age: 55yElectrical impulses cause the normal heart to beat 60 to 100 times a minute while at rest. Theseimpulses come from a natural pacemaker called the sinus node. It is, inside the right upper heartchamber. Electrical impulses travel throughout the upper heart chambers (the atria) before reachingthe bottom muscle chambers ((the ventricles) through an electrical connection called the AV node.Each impulse causes the heart muscle to contract. This causes the blood to flow through the heartand out to the tissues and organs of your body.An arrhythmia is a change from the normal speed or pattern of these electrical impulses. This cancause the heart to beat too fast (tachycardia), too slow (bradycardia), or in an unsteady pattern(irregular rhythm).Symptoms of arrhythmiasDifferent people experience arrhythmias differently. And different arrhythmias can cause differentsymptoms. Sometimes you may not have symptoms, but just notice a change in your pulse.Symptoms can include: Fluttering feeling in the chest Shortness of breath Chest pain or pressure 3 General Instructions [facility] Emergency Department [address] [place] [address] Phone #: ext- [phone] 04/01/2021 14:19 Patient: CHANTALE SOLOMON Sex: F : 1965 Age: 55y Neck fullness Lightheadedness or dizziness Fainting or almost fainting Palpitations. This is the sense that your heart is fluttering or beating fast or hard or irregularly. Tiredness, fatigue, or weakness Cardiac arrest, and , in serious arrhythmiasCauses of arrhythmiasArrhythmias are most often caused by heart disease, such as: Coronary artery disease ("blocked arteries") Heart valve disease Enlarged heart High blood pressure Heart failureOther causes of arrhythmia include: Certain medicines such as asthma inhalers and decongestants Some herbal supplements Cardiac stimulant drugs such as cocaine, amphetamine, and diet pills, and certain decongestant cold medicines, caffeine, and nicotine Heavy use of alcohol Anxiety and panic disorder Thyroid disease Anemia Diabetes Sleep apnea Obesity Congenital heart disease 4 General Instructions [facility] Emergency Department [address] [place] [address] Phone #: ext- [phone] 04/01/2021 14:19 Patient: CHANTALE SOLOMON Sex: F : 1965 Age: 55y Cardiac genetic diseases Electrolyte imbalance. Electrolytes are substances that help regulate normal heartbeat., High or low levels of certain electrolytes such as potassium or magnesium may affect the heartbeat and contribute to arrhythmia.Arrhythmias can often be prevented. The cause and type of arrhythmia determines the besttreatment. Sometimes your doctor may want to monitor your heart rate over a 24-hour period orlonger. This can help find the cause of your arrhythmia and find the best treatment. This can be donewith a Holter monitor. This is a portable electrocardiogram (ECG) recording device attached by wiresto your chest. Or you may get an event monitor, which you can place over the skin in front of yourheart to record heart rhythms. You can carry this with you as you go about your routine activitiesduring the monitoring period. Implantable loop recorders may also be used to monitor the heartrhythm for up to 3 years. This miniature device is placed underneath the skin over the heart.Home careThese guidelines will help you care for yourself at home: Stay away from cardiac stimulants such as cocaine, amphetamine, diet pills, certain decongestant cold medicines, caffeine, and nicotine. If you smoke, stop smoking. Contact your doctor or a local stop-smoking program for help. Tell your doctor about any prescription, [id number], or herbal medicines you take. These may be affecting your heart rhythm.Follow-up careFollow up with your healthcare provider, or as advised. If a Holter monitor has been recommended,contact the faith doctor you have been referred to as soon as you can pickling grader the device. Otheroutpatient tests may also be arranged for you at that time.Call 911This is the fastest and safest way to get to the emergency department. The paramedics can also starttreatment on the way to the hospital, if needed.Don't wait until your symptoms are severe to call 911. Other reasons to call 911 besides chest paininclude: Chest pain radiating to the shoulder, arm, neck, or back. Shortness of breath Feeling lightheaded, faint, or dizzy 5 General Instructions [facility] Emergency Department [address] [place] [address] Phone #: ext- [phone] 04/01/2021 14:19 Patient: CHANTALE SOLOMON Sex: F : 1965 Age: 55y Unexplained fainting Rapid heart beat Slower than usual heart rate compared to your normal Very irregular heartbeat Chest pain (angina) with weakness, dizziness, heavy sweating, nausea, or vomiting Extreme drowsiness, or confusion Weakness of an arm or leg or one side of the face Trouble with speech or visionWhen to seek medical adviceRemember, things are not always like they are on TV. Sometim es it is not so obvious. You may onlyfeel weak or just "not right." If it is not clear or if you have any doubt, call for advice. Seek help for chest pain, or if something feels different from usual, even if your symptoms are mild. Don't drive yourself. Have someone else drive. If no one can drive you, call 911. If your doctor has given you medicines to take when you have symptoms, take them, but don't delay getting help while trying to find them. [employer]. [address] [place] [address]. All rights reserved. This information is not intended as asubstitute for professional medical care. Always follow your healthcare professional's instructions.Atrial Fibrillation 6 General Instructions [facility] Emergency Department [address] [place] [address] Phone #: ext- [phone] 04/01/2021 14:19 Patient: CHANTALE SOLOMON Sex: F : 1965 Age: 55yAtrial fibrillation is a condition in which the heart beats in an irregular pattern. It is the most commonabnormal heart rhythm. It is caused by a problem in the heart's electrical pathways within the muscleof the upper chambers of the heart (atria). It can be a sign of heart disease or other health problemsthat affect the heart.Heart palpitations are a common symptom of atrial fibrillation. This is the feeling that your heart isfluttering, or beating fast, hard, or irregular. When the heart beats too fast, it doesn't pump blood verywell. This can cause other symptoms such as anxiety, fatigue, shortness of breath, chest pain,dizziness, or fainting. Atrial fibrillation may come and go. It can last from a few hours to a couple ofdays. Or it may become medical terminologist (chronic), lasting for months at a time or even become permanent.Some symptoms of atrial fibrillation are hard to notice. They include feeling less able to exercise.Some people have no symptoms.Atrial fibrillation is more common in older adults. It may be caused by heart disease or otherconditions in the body that affect the heart. They include: Coronary artery disease (atherosclerosis) . It is sometimes called blocked arteries. High blood pressure Disease of the heart valves Enlarged heart 7 General Instructions [facility] Emergency Department [address] [place] [address] Phone #: ext- [phone] 04/01/2021 14:19 Patient: CHANTALE SOLOMON Sex: F : 1965 Age: 55y Heart failureAtrial fibrillation can also occur without heart disease because of: Overactive thyroid (hyperthyroid) Chronic lung disease (COPD, emphysema, or bronchitis) Heavy alcohol use Heart stimulants such as cocaine, amphetamines, diet pills, certain decongestant cold medicines, caffeine, or nicotine Infection Blood clot in the lung (pulmonary embolus) Diabetes Chronic kidney disease Obesity Extreme and continued athletic conditioning Certain genetic diseasesTreating or removing these causes will help your treatment for atrial fibrillation. It will also make it lesslikely for it to come back.Atrial fibrillation can alternate back and forth with another abnormal rhythm called atrial flutter. Atrialflutter is a more regular heart rhythm. It also linked to an increased risk for stroke. Proper treatmentcan lower your risk for stroke.Home careFollow these guidelines when caring for yourself at home: Go back to your usual activities as soon as you are feeling back to normal. If you smoke, stop smoking. Contact your healthcare provider or a local stop-smoking program for help. Don't use st imulants like alcohol, cocaine, amphetamines, diet pills, certain decongestant cold medicines, caffeine, or nicotine. If your provider prescribed medicine to stop atrial fibrillation from coming back, take it exactly as directed. Some medicines must be taken every day, not just when you have symptoms. This will help them work as they should. 8 General Instructions [facility] Emergency Department [address] [place] [address] Phone #: ext- [phone] 04/01/2021 14:19 Patient: CHANTALE SOLOMON Sex: F : 1965 Age: 55y If you were prescribed a blood- thinning medicine called warfarin to lower your risk for stroke, have your blood tested regularly as advised by your provider. This will make sure you are getting the dose that is right for you. It also lowers your risk for side effects. You may have been prescribed other blood-thinning medicines that don't need regular testing.Follow-up careFollow up with your healthcare provider, or as advised.When to seek medical adviceCall your healthcare provider right away if any of these following occur: Swelling in the legs that gets worse Unexpected weight gain Bleeding easier than normal Pain, redness, or swelling in one legCall 911Calling 911 is the fastest and safest way to get the emergency department. The paramedics can alsostart treatment on the way to the hospital, if needed.Call 911 or seek medical help right away if any of the following occur: Weakness of an arm or leg or one side of the face Chest pain Shortness of breath, or feeling that you can't get enough air Feeling lightheaded, faint, or dizzy Your heartbeat is very rapid, slow, or irregular compared with your regular heartbeat Bleeding that is not easily controlled Trouble with speech or vision Extreme drowsiness, confusion, dizziness, or fainting [phone] [employer] [place] [address], [place] [address]. All rights reserved. This information is not intended as asubstitute for professional medical care. Always follow your healthcare professional's instructions.Hypokalemia 9 General Instructions [facility] Emergency Department [address] [place] [address] Phone #: ext- [phone] 04/01/2021 14:19 Patient: CHANTALE SOLOMON Sex: F : 1965 Age: 55yHypokalemia means a low level of potassium in the blood. This most often occurs in people who takewater pills (diuretics). It can also occur because of severe vomiting or diarrhea. You may also have itif you take laxatives for long periods of time. It sometimes happens if you have low magnesium(hypomagnesemia). If you have this, your healthcare provider will treat the low magnesium first.A mild case of hypokalemia usually causes no symptoms. It is only found with blood testing. Moresevere potassium loss causes overall weakness, muscle or abdominal cramps, rapid or irregularheartbeats (heart palpitations), low blood pressure,muscle weakness, and in some indviduals cancause temporary paralysis. .Home care Take any potassium supplements as prescribed. Eat foods rich in potassium. The highest amount is found in avocado, baked potatoes, spinach, cantaloupe, cod, halibut, salmon, and scallops. White, red, or alvarenga beans are also very good sources. A modest amount of potassium is found in orange juice, bananas, carrots, and tomato juice. If you take certain types of diuretics, you will also need to take potassium supplements. If you take a diuretic, discuss potassium supplements with your doctor.Follow-up careFollow up with your healthcare provider for a repeat blood test within the next week, or as advised byour staff.When to seek medical adviceCall your healthcare provider right away if any of the following occur: Increased weakness, fatigue, or muscle cramps DizzinessCall 911Call 911 if any of the following occur: Irregular heartbeat, extra beats, or very fast heart rate Loss of consciousness [phone] [employer] [place] [address]. All rights reserved. This information is not intended as asubstitute for professional medical care. Always follow your healthcare professional's instructions. 10 General Instructions [facility] Emergency Department [address] [place] [address] Phone #: ext- [phone] 04/01/2021 14:19 Patient: CHANTALE SOLOMON Sex: F : 1965 Age: 55yYou have been given the following additional information:About ArrhythmiasAtrial FibrillationHypokalemia(Electronically signed by Gloria Schneider 04/01/2021 21:28) Name Value Range Interpretation Code Description Data Maura rce(s) Supporting Document(s) ID Date Data Source [id number] 04/01/2021 02:22:00 PM EDT [facility] 1 Clinical Report - Nurses [facility] Emergency Department [address] [place] [address] Phone #: [phone] ext- [phone] 04/01/2021 14:19 Patient: CHANTALE SOLOMON Sex: F : 1965 Age: 55yTRIAGEArrived by private vehicle. Historian: patient. Accompanied by spouse.Triage time: 14:20 04/01/2021. Acuity: LEVEL 3.Chief Complaint: (HEART RACING).Alert. No acute distress.Onset. (30 minutes ago).Treatment STOCKROOM ATTENDANT:None.SEPSIS SCREEN: SIRS SCREEN NEGATIVE: heart rate greater than 90. SEPSIS SCREEN NEGATIVE.No suspected or confirmed signs of infection present. --14:24 04/01/21 Leilani Costello R.N.14:20 04/01/21. BP: 129/87. MAP: 101. HR: 149. RR: 26. O2 saturation: 100% on room air. Temp: 97.2 F(oral). Pain level now: 03/12. --14:24 04/01/21 Leilani Costello R.N.Weight: 79.3 kg stated. Height/Length: 60 inches Per Patient. BMI: 34.1. --14:19 04/01/21 Leilani Costello R.N.MedicationsBreo Ellipta Inhalation 1 puff, daily. dilTIAZem HCl Oral 180 mg, daily at bedtime. Folic Acid Oral (Tablet 800 mcg) 1 tablet, daily. Levaquin Oral 500 mg, daily, started 01/31/2021. Magnesium Oral 1000mg , daily. Pantoprazole Sodium Oral 40 mg, daily. Potassium Oral 10 meq, 2x a day. Spiriva HandiHaler Inhalation 2 puffs, daily. Xarelto Oral (Tablet 10 mg) 1 tablet, daily. --14:28 04/01/21 Leilani Costello R.N. Furosemide Oral 20 mg, daily. --14:28 04/01/21 Leilani Costello R.N.AllergiesPenicillins.Seafood. --14:28 04/01/21 Leilani Costello R.N.PROBLEMS:Cancer: Active. (Lung, mets to bones). --14:30 04/01/21 Osiris Costello R.N.DVT - Deep Venous Thrombosis. 2 Clinical Report - Nurses [facility] Emergency Department [address] [place] [address] Phone #: ext- [phone] 04/01/2021 14:19 Patient: CHANTALE SOLOMON Sex: F : 1965 Age: 55yCOPD - Chronic Obstructive Pulmonary Disease.Hemoptysis.Heart Disease.Atrial Fibrillation.Anemia.Reflux.Back Injury.Hypertension.Pulmonary Embolism.TIA - Transient Ischemic Attack.Spinal Fracture.Pneumonia.Intervertebral Disc Disease. --14:30 04/01/21 Leilani Costello R.N.Medication/allergy information source: the patient. --14:24 04/01/21 Leilani Costello R.N.ADDITIONAL SURGERIES:Appendectomy.Back Surgery (Rods in t spine, crushed t7 t8).Dilatation Curettage.Foot surgery.Heel spur.Right heel spur.Septoplasty.Septoplasty.Tonsillectomy.Tubal Ligation. --14:30 04/01/21 Leilani Costello R.N.HistoryPAST MEDICAL HX: Immunizations: up-to-date.SOCIAL HX: Former smoker. Occasional alcohol use. No drug use. She was offered HIV testing butdeclined. Patient education was provided. She was offered hepatitis C testing but declined. Patienteducation was provided. She has not traveled outside the [place]Infectious disease exposure: No infectious disease exposure. (COVID screen negative). Patient is not aknown carrier of tuberculosis, hepatitis, HIV, MRSA or VRE. Patient is not a known carrier of CRE.ABUSE ASSESSMENT: Abuse assessment. The patient had positive responses to the question(s) "Do youfeel safe in your home?" (yes). Abuse denied. No suspicion of abuse. No report of abuse.NUTRITIONAL RISK ASSESSMENT: The nutritional risk assessment revealed no deficiencies.FUNCTIONAL ASSESSMENT: Functional assessment: no impairments noted.LEARNING NEEDS ASSESSMENT: The learning needs assessment revealed no barriers. 3 Clinical Report - Nurses [facility] Emergency Department [address] [place] [address] Phone #: ext- [phone] 04/01/2021 14:19 Patient: CHANTALE SOLOMON [facility]#: [id number] Sex: F : 1965 Age: 55y SKIN INTEGRITY ASSESSMENT: Skin integrity risk assessment completed. No skin integrity risk identified. --14:24 04/01/21 Leilani Costello R.N. SELF HARM ASSESSMENT: Self harm assessment was performed. The patient answered "no" to the question(s) "Do you have thoughts of harming or killing yourself?", "Do you have a plan for harming or killing yourself?" and "Have you recently had thoug hts about harming or killing others?". FALL RISK ASSESSMENT: Fall risk assessment completed. No risk factors identified. --14:26 04/01/21 Leilani Costello R.N. Interventions Identification band on patient. --14:24 04/01/21 Leilani Costello R.N. Allergy band on patient. --14:57 04/01/21 Yandel Mendes RN.PHYSICAL LHIYIKUSAF96:57 04/01/21. Ambulatory to room.GENERAL / NEURO / PSYCH: Alert. Oriented X 4. Appears in no acute distress.RESPIRATORY: Respirations not labored. Chest nontender. Breath sounds within normal limits.CVS: Cardiac rhythm: atrial fibrillation; (1430). Pulses within normal limits. Capillary refill less than 2seconds.GI / : Abdomen soft and nontender.EXTREMITIES: No lower extremity edema.SKIN: Skin is warm and dry. Skin is non-tender. --14:57 04/01/21 Yandel Mendes RN.NURSING PROGRESS NOTESEKG time: (14:24 04/01/2021). EKG was performed by a nurse and shown to the ED physician. --14: Leilnai Costello R.N. Oxygen administered by nasal cannula at 2 liters. radiation physicist, NIBP monitor and pulse oximeter placed on patient; monitor alarms on. Patient gowned. Reassurance given. Three patient identifiers checked. Call light placed in reach. Side rails up x 2. Bed placed in lowest position. Brakes of bed on. Patient ready for evaluation- ED physician notified. --14:25 04/01/21 Leilani Costello R.N. 14:45 04/01/2021 Site #1 started via IV in the left wrist with an 20g angiocath; one attempt. Saline lock flushed with 10 mL saline. --14:55 04/01/21 Yandel Mendes RN 14:46 04/01/2021 Started bag #1 1000 mL IV Fluids NS; at 250 mL/hr over 4 hour(s) via site #1 via IV pump. Allergies verified and confirmed 5 rights. IV patency established. IV site checked: no pain, redness, or swelling. IV flushed thoroughly pre- and post-medication administration. Information reviewed with patient. --14:56 04/01/21 Yandel Mendes RN 14:46 04/01/2021 Cardizem (dilTIAZem HCl) IVP 20 mg given over 3 minute(s) via site #1. Allergies 4 Clinical Report - Nurses [facility] Emergency Department [address] [place] [address] Phone #: ext- [phone] 04/01/2021 14:19 Patient: CHANTALE SOLOMON Sex: F : 1965 Age: 55y verified and confirmed 5 rights. IV patency established. IVP given by RN. Information reviewed with patient. --14:56 04/01/21 Yandel Mendes RN Checked patient name and birthdate: patient confirmed. Blood samples drawn by tech. ([id number]). Portable chest x-ray completed. Shown to the ED physician ([id number]). --14:58 04/01/21 Yandel Mendes RN 15:36 04/01/21. ( 1530 while in sitting up cardiazem drip heart rate decreased to low 80's and stayed there , MD notified with v/o HOLD cardiazem drip at this time, pt stating feeling better). --15:36 04/01/21 Yandel Mendes RN 14:30 04/01/21. BP: 116/90. MAP: 98. HR: 145. O2 saturation: 100% on nasal cannula at 2 liters/minute. --15:42 04/01/21 Yandel Mendes RN 14:45 04/01/21. BP: 123/88. MAP: 99. HR: 126. O2 saturation: 100% on nasal cannula at 2 liters/minute. --15:43 04/01/21 Yandel Mendes RN 15:36 04/01/21. BP: 121/71. MAP: 87. HR: 81. O2 saturation: 100% on nasal cannula at 2 liters/minute. --15:43 04/01/21 Yandel Mendes RN EKG time: (16:13 04/01/2021). EKG was performed by a nurse and shown to the ED physician. --16:17 04/01/21 Yandel Mendes RN 16:26 04/01/2021 POTASSIUM CHLORIDE LIQUID PO PO Syrup/Liquid 40 meq given. Allergies verified and confirmed 5 rights. Information reviewed with patient. --16:26 04/01/21 Yandel Mendes RN ( 1625 pt OOB to BSC to void with heart rate increased to 130 on BSC then returned to 88 after getting back into bed). --16:31 04/01/21 Yandel Mendes RN. Intake Output Urine output: 600 mL. --16:30 04/01/21 Yandel Mendes RN.DISPOSITION / DISCHARGE 16:40 04/01/2021 IV Fluids NS via IV site #1 Discontinued: bag #1 STOPPED upon discharge. Total amount infused: 500 mL. IV patency established. IV site checked: no pain, redness, or swelling. IV flushed thoroughly. --16:55 04/01/21 Yandel Mendes RN 16:45 04/01/2021 Site #1 removed upon discharge. Catheter intact. Bandaid applied. --16:55 04/01/21 Yandel Mendes RN 16:50 04/01/21. Departure time: 16:50 04/01/2021. Condition at departure: improved. No learning barriers present. Discharge instructions provided and reviewed with the patient and spouse. Reviewed medication(s) (no changes). Reviewed referral to a faith doctor. Patient and spouse verbalized understanding. Written instructions provided in Lithuanian. The patient was discharged by the physician. She was discharged 5 Clinical Report - Nurses [facility] Emergency Department [address] [place] [address] Phone #: ext- [phone] 04/01/2021 14:19 Patient: CHANTALE SOLOMON Sex: F : 1965 Age: 55y home and accompanied by spouse. She left ambulatory and via private vehicle. Spouse driving. --16:56 04/01/21 Yandel Mendes RN 16:34 04/01/21. BP: 142/94. MAP: 110. HR: 88. RR: 18. O2 saturation: 100% on nasal cannula at 2 liters/minute. Temp: 97.5 F (oral). Pain level now: 0/10. --16:56 04/01/21 Yandel Mendes RN.Locked/Released at 04/01/2021 19:31 by Yandel Mendes RN Name Value Range Interpretation Code Description Data Maura rce(s) Supporting Document(s) ID Date Data Source [id number] 04/01/2021 02:22:00 PM EDT [facility] 1 Clinical Report - Physicians/Mid Levels [facility] Emergency Department [address] [place] [address] Phone #: ext- [phone] 04/01/2021 14:19 Patient: CHANTALE SOLOMON Sex: F : 1965 Age: 55y Time Seen: 14:23 04/01/2021; initial patient contact, initial documentation. Arrived- By private vehicle. Disposition decision: 16:25 04/01/2021.HISTORY OF PRESENT ILLNESS Chief Complaint: PALPITATIONS. FAST HEART RATE. This started just prior to arrival and is still present. (patient was taking a shower). It was abrupt in onset and has been constant. It is described as a fast and pounding heart beat and an irregular heart beat. She did not lose consciousness. She did not feel like might "pass out". She complains of dizziness. Modifying factors. Not worsened by anything. Not relieved by anything. No chest pain, difficulty breathing, sweating episodes, fainting episodes or tingling. No muscle spasms. She has had chest discomfort and dizziness. Treatment STOCKROOM ATTENDANT: (none). Similar symptoms previously. Patient has had similar symptoms once.REVIEW OF SYSTEMSNo fever, chills, cough, orthopnea or enlarged lymph nodes. No abnormal bleeding, headache, sorethroat, blurred vision or nausea. No abdominal pain, black stools, difficulty with urination, skin rash ordepression. No trouble sleeping, vomiting, diarrhea or bloody stools. The patient has not had a poorappetite. All other systems reviewed and are negative.PAST HISTORYSee nurses notes. Problems: Cancer [Active]. (Lung, mets to bones) Chronic Back Pain. Hemoptysis. Heart Disease. Atrial Fibrillation. Back Injury. Hypertension. Pulmonary Embolism. TIA - Transient Ischemic Attack. Spinal Fracture. Pneumonia. Intervertebral Disc Disease. Additional Surgeries: Appendectomy. Back Surgery. (Rods in t spine, crushed t7 t8) 2 Clinical Report - Physicians/Mid Levels [facility] Emergency Department [address] [place] [address] Phone #: ext- [phone] 04/01/2021 14:19 [id number] Sex[facility] F : 1965 Age: 55y Dilatation Curettage. Foot surgery. Heel spur. Right heel spur. Septoplasty. Septoplasty. Tonsillectomy. Tubal Ligation. Medications: Furosemide Oral 20 mg, daily. Breo Ellipta Inhalation 1 puff, daily. dilTIAZem HCl Oral 180 mg, daily at bedtime. Folic Acid Oral (Tablet 800 mcg) 1 tablet, daily. Levaquin Oral 500 mg, daily, started 01/31/2021. Magnesium Oral 1000mg , daily. Pantoprazole Sodium Oral 40 mg, daily. Potassium Oral 10 meq, 2x a day. Spiriva HandiHaler Inhalation 2 puffs, daily. Xarelto Oral (Tablet 10 mg) 1 tablet, daily. Allergies: Penicillins. Seafood.SOCIAL HISTORYFormer smoker. No alcohol use or drug use.ADDITIONAL NOTESThe nursing notes have been reviewed.PHYSICAL EXAMVital Signs: 04/01/2021 14:20 BP: 129/87. MAP: 101. HR: 149. RR: 26. O2 saturation: 100% on room air.Temp: 97.2 F. Pain level now: 5/10. Have been reviewed. Oxygen saturation normal.Appearance: Alert. Oriented X3. No acute distress. Anxious.Eyes: Pupils equal, round and reactive to light. Eyes normal inspection.ENT: Ears normal. Nose normal. Pharynx normal.Neck: Normal inspection. Neck supple.CVS: Tachycardia. Abnormal rhythm, which is tachycardic and irregularly irregular. Heart soundsnormal. Pulses normal.Respiratory: No respiratory distress. Painless inspiration. Breath sounds normal. Chest nontender.Abdomen: Soft and nontender. Bowel sounds normal. No organomegaly. No mass. Femoral pulsesequal.Back: Normal external inspection.Skin: Skin warm and dry. Normal skin color. No rash. Normal skin turgor. 3 Clinical Report - Physicians/Mid Levels [facility] Emergency Department [address] [place] [address] Phone #: ext- [phone] 04/01/2021 14:19 Patient: CHANTALE SOLOMON Sex: F : 1965 Age: 55y Extremities: Extremities exhibit normal ROM. No lower extremity edema. Neuro: Oriented X 3. No motor deficit. No sensory deficit.LABS, X-RAYS, AND EKGEKG: EKG time: 14:24 04/01/2021. Irregularly irregular narrow- complex tachycardia (ventricular [id number]). Atrial fibrillation. Normal QRS complex. Non-specific ST segment / T wave abnormalities.Changes present when compared to prior EKG. (atrial fibrillation now. she was in NSR on march).The study has been interpreted contemporaneously by me. The study has been independently viewed byme. The EKG appears to be a good tracing. Interpretation time: 14:30 04/01/2021.EKG #2: EKG time: 16:12 04/01/2021. No acute process. No acute ischemia. Normal sinus rhythm.Rate: 97. Normal P waves. Normal QRS complex. Non-specific ST segment / T wave abnormalities.Changes present when compared to prior EKG. (patient converted to NSR from atrial fibrillation 2 hoursPTA). The study has been interpreted contemporaneously by me. The study has been independentlyviewed by me. The EKG appears to be a good tracing. Interpretation time: 16:13 04/01/2021.Laboratory Tests: CBC w Diff: (SARAH: 04/01/2021 14:37) ( MsgRcvd 04/01/2021 15:41) Final results Test Result Flag Units (Reference) CBC W/AUTOMATED DIFF COMPLETE BLOOD COUNT WBC 3.9 L 10/uL (4.2 - 11.0) RBC 3.11 L 10/uL (4.20 - 5.40) HEMOGLOBIN 10.2 L g/dL (12.0 - 16.0) HEMATOCRIT 30.8 L % (37.0 - 47.0) MCV 99.0 fL (81.0 - 101) MCH 32.8 pg (27.0 - 34.0) MCHC 33.1 g/dL (31.0 - 36.0) RDW 15.9 H % (11.5 - 14.5) PLATELETS 130 L 10/uL (150 - 450) MPV 9.9 fL (7.4 - 10.4) NEUT 43.4 % (37.0 - 80.0) LYMPH 18.4 L % (25.0 - 40.0) MONO 35.1 H % (3.0 - 8.0) EOS 1.8 % (0.0 - 7.0) BASO 0.3 % (0.0 - 2.5) %IG 1.0 H % (0.0 - 0.0) %NRBC 0.0 % (0.0 - 0.0) #NEUT 1.67 L 10/uL (2.00 - 6.90) #LYMPH 0.71 10/uL (0.60 - 3.40) #MONO 1.35 H 10/uL (0.00 - 0.90) #EOS 0.07 10/uL (0.00 - 0.70) #BASO 0.01 10/uL (0.00 - 0.20) #IG 0.04 10/uL (0.00 - 0.10) #NRBC 0.00 10/uL (0.00 - 0.00) MANUAL DIFF SEE BELOW SEGS 42 % (37 - 80) %LYMPH 19 L % (25 - 40) %MONO 36 H % (3 - 8) %EOS 2 % (0 - 7) %BASO 1 % (0 - 2) RBC MORPH NOT INDICATED CMP: (SARAH: 04/01/2021 14:37) ( MsgRcvd 04/01/2021 15:59) Final results Test Result Flag Units (Reference) 4 Clinical Report - Physicians/Mid Levels [facility] Emergency Department [address] [place] [address] Phone #: ext- [phone] 04/01/2021 14:19 Patient: CHANTALE SOLOMON Sex: F : 1965 Age: 55y COMPREHENSIVE METABOLIC PANEL COMPREHENSIVE METABOLIC PANEL SODIUM 132 L mEq/L (134 - 153) POTASSIUM 3.2 L mEq/L (3.6 - 5.0) CHLORIDE 92 L mEq/L (98 - 107) CO2 29 MEQ/L (22 - 30) GLUCOSE 117 H MG/DL (70 - 99) BUN 8 MG/DL (7 - 21) CREATININE 0.9 MG/DL (0.7 - 1.5) BUN/CREAT 9 (8 - 27) TOTAL PROTEIN 6.2 L G/DL (6.3 - 8.2) ALBUMIN 3.5 L G/DL (3.9 - 5.0) GLOBULIN 2.7 GM/DL (2.4 - 3.2) A/G RATIO 1.3 (0.8 - 2.0) CALCIUM 8.4 MG/DL (8.4 - 10.2) TOTAL BILI <0.7 MG/DL (0.2 - 1.3) ALKALINE PHOS 137 H U/L (38 - 126) SGOT/AST 53 H U/L (5 - 40) SGPT/ALT 33 U/L (7 - 56) ANION GAP 11.0 mmol/L (8.0 - 16.0) AGE 55 yrs NON-AA GFR >60 mL/min AFR AMER GFR >60 mL/min Male GFR Interprentation 20-49 yrs >60 mL/min Normal 50-59 yrs >56 mL/min Normal 60- 69 yrs >49 mL/min Normal 70-79yrs >42 mL/min Normal 80 and above >35 mL/min Normal Female GFR Interpretation 20-39 yrs >60 mL/min Normal 40-49 yrs >58 mL/min Normal 50-59 yrs >51 mL/min Normal 60-69 yrs >45 mL/min Normal 70-79 yrs >39 mL/min Normal 80 and above >32 mL/min Normal Lipase: (SARAH: 04/01/2021 14:37) ( MsgRcvd 04/01/2021 15:59) Final results Test Result Flag Units (Reference) LIPASE 23 U/L (13 - 60) PT/PTT: (SARAH: 04/01/2021 14:37) ( MsgRcvd 04/01/2021 15:11) Final results Test Result Flag Units (Reference) PROTIME 23.5 H SECONDS (11.0 - 15.5) INR 2.06 H (0.93 - 1.23) PTT 54.3 H SECONDS (24.8 - 36.7) \\BLDo\\INR INTERPRETATION\\BLDx\\ Therapeutic range for Coumadin and related oral anticoagulants. -International Normalized Ratio (INR): 2.0 - 3.0 for Venous Thrombosis, Pulmonary Embolus, Tissue heart valves, Acute NC Atrial Fibrillation, Valvular heart disease and recurrent Systemic Embolism. -International Normalized Ratio (INR): 2.5 - 3.5 for Mechanical Prosthetic valve. Troponin-T: (SARAH: 04/01/2021 14:37) ( MsgRcvd 04/01/2021 15:44) Final results Test Result Flag Units (Reference) TROPONIN T <0.01 NG/ML (0.00 - 0.10) TROPONIN T0.1 ng/ml Recommended as the clinical threshold value Kathie Maxwell.PROGRESS AND PROCEDURES 5 Clinical Report - Physicians/Mid Levels [facility] Emergency Department [address] [place] [address] Phone #: ext- [phone] 04/01/2021 14:19 Patient: CHANTALE SOLOMON Sex: F : 1965 Age: 55y Course of Care: 15:19 04/01/21. Patient noted to be in atrial fibrillation with RVR, given cardizem 20 mg IVP and started on a cardizem drip 16:08 04/01/21. blood work showed normal troponin and low potassium. patient's heart rate went down to 95 so cardizem drip was held and not given. she then converted to normal sinus rhythm. will repeat EKG 16:14 04/01/21. Patient converted to normal sinus rhythm at 97/min. Patient counseled in person regarding the patient's stable condition, test results, diagnosis and need for follow-up. Patient agrees with plan of care. 16:25. Disposition: Discharged home in good and improved condition (16:26). Condition: good and stable. Discharge decision based on the following: patient's condition is improved; patient is ambulatory; patient's exam is improved; no seriously abnormal test results; resolved condition on multiple repeat evaluations; social support is good; transportation is available; follow-up is available; clinical impression is consistent with outpatient treatment.CLINICAL IMPRESSION Paroxysmal atrial fibrillation with controlled rate. Palpitations. HypokalemiaINSTRUCTIONS (you had an episode of atrial fibrillation and converted to normal sinus rhythm. your potassium was low at 3/2. you were given potassium in the ER. follow up with DR Todd in 2 days). Your Current Medications: Your current home medications have been reviewed. CONTINUE TAKING THE FOLLOWING MEDICATIONS: Breo Ellipta Inhalation : 1 puff daily. dilTIAZem HCl Oral : 180 mg daily, at bedtime. Folic Acid Oral : Tablet 800 mcg, 1 tablet daily. Furosemide Oral : 20 mg daily. Levaquin Oral : 500 mg daily, Started: 01/31/2021. Magnesium Oral : 1000mg daily. Pantoprazole Sodium Oral : 40 mg daily. Potassium Oral : 10 meq 2x a day. Spiriva HandiHaler Inhalation : 2 puffs daily. Xarelto Oral : Tablet 10 mg, 1 tablet daily. 6 Clinical Report - Physicians/Mid Levels [facility] Emergency Department [address] [place] [address] Phone #: ext- [phone] 04/01/2021 14:19 Patient: CHANTALE SOLOMON Sex: F : 1965 Age: 55y Follow-up: Follow up with your healthcare provider in two days. Reason for referral: evaluation. Summary of care provided to patient via paper.(Electronically signed by Gloria Schneider 04/01/2021 21:28) Name Value Range Interpretation Code Description Data Maura rce(s) Supporting Document(s) ID Date Data Source [id number] 04/01/2021 03:59:00 PM EDT [facility] Name Value Range Interpretation Code Description Data Maura rce(s) Supporting Document(s) Lipase [Enzymatic activity/volume] in Serum or Plasma 23 U/L 13 - 60 [facility] ID Date Data Source [id number] 04/01/2021 03:59:00 PM EDT [facility] Name Value Range Interpretation Code Description Data Maura rce(s) Supporting Document(s) COMPREHENSIVE METABOLIC PANEL [facility] COMPREHENSIVE METABOLIC PANEL Sodium [Moles/volume] in Serum or Plasma 132 mEq/L 134 - 153 L [facility] Potassium [Moles/volume] in Serum or Plasma 3.2 mEq/L 3.6 - 5.0 L [facility] Chloride [Moles/volume] in Serum or Plasma 92 mEq/L 98 - 107 L [facility] Carbon dioxide, total [Moles/volume] in Serum or Plasma 29 MEQ/L 22 - 30 [facility] Glucose [Mass/volume] in Serum or Plasma 117 MG/DL 70 - 99 H [facility] BUN 8 MG/DL 7 - 21 [facility] al Creatinine [Mass/volume] in Serum or Plasma 0.9 MG/DL 0.7 - 1.5 [facility] BUN/CREAT 9 8 - 27 [facility] Protein [Mass/volume] in Serum or Plasma 6.2 G/DL 6.3 - 8.2 L [facility] Albumin [Mass/volume] in Serum or Plasma 3.5 G/DL 3.9 - 5.0 L [facility] Globulin [Mass/volume] in Serum by calculation 2.7 GM/DL 2.4 - 3.2 [facility] A/G RATIO 1.3 0.8 - 2.0 [facility] Calcium [Mass/volume] in Serum or Plasma 8.4 MG/DL 8.4 - 10.2 [facility] Bilirubin.total [Mass/volume] in Serum or Plasma <0.7 MG/DL 0.2 - 1.3 [facility] Alkaline phosphatase [Enzymatic activity/volume] in Serum or Plasma 137 U/L 38 - 126 [facility] Aspartate aminotransferase [Enzymatic activity/volume] in Serum or Plasma 53 U/L 5 - 40 H [facility] Alanine aminotransferase [Enzymatic activity/volume] in Seru m or Plasma 33 U/L 7 - 56 [facility] Anion gap 3 in Serum or Plasma 11.0 mmol/L 8.0 - 16.0 [facility] AGE 55 yrs [facility] NON-AA GFR >60 mL/min [facility] AFR AMER GFR >60 mL/min [facility] Male GFR In [...] >32 mL/min Normal ID Date Data Source [id number] 04/01/2021 03:44:00 PM EDT [facility] Name Value Range Interpretation Code Description Data Maura rce(s) Supporting Document(s) TROPONIN T <0.01 NG/ML 0.00 - 0.10 [facility] o[facility]ital TROPONIN T0.1 ng/ml Recommended as the c linical threshold value forTroponin T. ID Date Data Source [id number] 04/01/2021 03:40:00 PM [facility] Name Value Range Interpretation Code Description Data Maura rce(s) Supporting Document(s) CBC W/AUTOMATED DIFF [facility] COMPLETE BLOOD COUNT Leukocytes [#/volume] in Blood by Automated count 3.9 10^3/uL 4.2 - 1 1.0 L [facility] Erythrocytes [#/volume] in Blood by Automated count 3.11 10^6/uL 4. 20 - 5.40 L [facility] Hemoglobin [Mass/volume] in Blood 10.2 g/dL 12.0 - 16.0 L [facility] Hematocrit [Volume Fraction] of Blood by Automated count 30.8 % 3 7.0 - 47.0 L [facility] Erythrocyte mean corpuscular volume [Entitic volume] by Auto mated count 99.0 fL 81.0 - 101 [facility] Erythrocyte mean corpuscular hemoglobin [Entitic mass] by Automated count 32.8 pg 27.0 - 34.0 [facility] Erythrocyte mean corpuscular hemoglobin concentration [Mass/volume] by Automated count 33.1 g/dL 31.0 - 36.0 [facility] Erythrocyte distribution width [Ratio] by Automated count 15.9 % 11.5 - 14.5 H [facility] Platelets [#/volume] in Blood by Automated count 130 10^3/uL 150 - 45 0 L [facility] Platelet mean volume [Entitic volume] in Blood by Automated count 9.9 fL 7.4 - 10.4 [facility] Neutrophils/100 leukocytes in Blood by Automated count 43.4 % 37. 0 - 80.0 [facility] Lymphocytes/100 leukocytes in Blood by Manual count 18.4 % 25.0 - 40.0 L [facility] Monocytes/100 leukocytes in Blood by Automated count 35.1 % 3.0 - 8.0 H [facility] Eosinophils/100 leukocytes in Blood by Automated count 1.8 % 0.0 - 7.0 [facility] 0.3 %IG 1.0 % 0.0 - 0.0 [facility] 0.0 % 0.0 - 0.0 [facility] al Neutrophils [#/volume] in Blood by Automated count 1.67 10^3/uL 2.00 - 6.90 L [facility] Lymphocytes [#/volume] in Blood by Automated count 0.71 10^3/uL 0.60 - 3.40 [facility] Monocytes [#/volume] in Blood by Automated count 1.35 10^3/uL 0.00 - 0.90 H [facility] Eosinophils [#/volume] in Blood by Automated count 0.07 10^3/uL 0.00 - 0.70 [facility] Basophils [#/volume] in Blood by Automated count 0.01 10^3/uL 0.00 - 0.20 [facility] #IG 0.04 10^3/uL 0.00 - 0.10 [facility]spital #NRBC 0.00 10^3/uL 0.00 - 0.00 [facility] o[facility]ital MANUAL DIFF SEE BELOW [facility] ital Segmented neutrophils/100 leukocytes in Blood by Manual count 42 % 37 - 80 [facility] %LYMPH 19 % 25 - 40 L [facility] al %MONO 36 % 3 - 8 H [facility] %EOS 2 % 0 - 7 [facility] 1 RBC MORPH NOT INDICATED [facility] ID Date Data Source [id number] 04/01/2021 03:11:00 PM EDT [facility] Name Value Range Interpretation Code Description Data Maura rce(s) Supporting Document(s) Prothrombin time (PT) 23.5 SECONDS 11.0 - 15.5 H [facility] INR in Platelet poor plasma by Coagulation assay 2.06 0.93 - 1. 23 H [facility] aPTT in Blood by Coagulation assay 54.3 SECONDS 24.8 - 36.7 H [facility] \\BLDo\\INR INTERPRETATION\\BLDx\\ Therapeutic range for Coumadin and related oral anticoagulants. - International Normalized Ratio (INR): 2.0 - 3.0 for Venous Thrombosis, Pulmonary Embolus, Tissue heart valves, Acute NC Atrial Fibrillation, Valvular heart disease and recurrent Systemic Embolism. - International Normalized Ratio (INR): 2.5 - 3.5 for Mechanical Prosthetic valve. ID Date Data Source [id number] 03/26/2021 02:11:00 PM EDT [facility] ([facility], ) Name Value Range Interpretation Code Description Data Maura rce(s) Supporting Document(s) Sputum Culture Laboratory test result Normal (applies to non-numeric results) [facility] ([facility], ) FULL REPORT IN LAB NOTES ([facility] NORMAL JEROME PRESENT ORGANISM 1: MOLD LIKE ORGANISM QUANTITY OF GROWTH FEW ORGANISM 1: MOLD LIKE ORGANISM Gram Stain Laboratory test result Normal (applies to non-n umeric results) [facility] ([facility], ) QUALITY: GOOD MANY WBCS FEW EPITHELIAL CELLS MANY GRAM POSITIVE COCCI IN PAIRS, CHAINS AND CLUSTERS MODERATE GRAM POSITIVE RODS ID Date Data Source [id number] 03/21/2021 08:20:00 AM EDT [facility] (Osmel Alvarez MD) Name Value Range Interpretation Code Description Data Maura rce(s) Supporting Document(s) Magnesium [Mass/volume] in Serum or Plasma 1.3 mg/dL 1.7-2.2 Belo w low normal [facility] (Osmel Alvarez MD) ID Date Data Source [id number] 03/21/2021 08:20:00 AM EDT [facility] (Osmel Alvarez MD) Name Value Range Interpretation Code Description Data Maura rce(s) Supporting Document(s) Laboratory test finding (navigational concept) Laboratory test result [facility] (Osmel Alvarez MD) COMPREHENSIVE METABOLIC PANEL Laboratory test finding (navigational concept) 4.1 meq/L 3.6-5.0 [facility] (Oseml Alvarez MD) Laboratory test finding (navigational concept) 139 meq/L 134-153 [facility] (Osmel Alvarez MD) Laboratory test finding (navigational concept) 98 meq/L 98-107 [facility] (Osmel Alvarez MD) Laboratory test finding (navigational concept) 31 meq/L 22-30 Above high normal [facility] (Osmel Alvarez MD) Laboratory test finding (navigational concept) 116 mg/dL 7 0-99 Above high normal [facility] (Osmel Alvarez MD) Laboratory test finding (navigational concept) 5 mg/dL 7-21 Below low normal [facility] (Osmel Alvarez MD) Laboratory test finding (navigational concept) 0.9 mg/dL 0.7-1.5 [facility] (Osmel Alvarez MD) Laboratory test finding (navigational concept) 6 8-27 Below low normal [facility] (Osmel Alvarez MD) Laboratory test finding (navigational concept) 2.4 GM/DL 2.4-3.2 [facility] (Osmel Alvarez MD) Laboratory test finding (navigational concept) 5.9 g/dL 6 .3-8.2 Below low normal [facility] (Osmel Alvarez MD) Laboratory test finding (navigational concept) 3.5 g/dL 3 .9-5.0 Below low normal [facility] (Osmel Alvarez MD) Laboratory test finding (navigational concept) 1.5 0.8-2.0 [facility] (Osmel Alvarez MD) Laboratory test finding (navigational concept) 9.2 mg/dL 8.4-10.2 [facility] (Osmel Alvarez MD) Laboratory test finding (navigational concept) Laboratory test resu lt 0.2-1.3 [facility] (Osmel Alvarez MD) Laboratory test finding (navigational concept) 7 U/L 7-56 [facility] (Osmel Alvarez MD) Laboratory test finding (navigational concept) 87 U/L 38-126 [facility] (Osmel Alvarez MD) Laboratory test finding (navigational concept) 18 U/L 5-40 [facility] (Osmel Alvarez MD) Laboratory test finding (navigational concept) 55 yrs [facility] (Osmel Alvarez MD) Laboratory test finding (navigational concept) 10.0 mmol/L 8.0-16.0 [facility] (Osmel Alvarez MD) Laboratory [...] >32 mL/min Normal ID Date Data Source [id number] 03/21/2021 08:20:00 AM EDT [facility] (Osmel Alvarez MD) Name Value Range Interpretation Code Description Data Maura rce(s) Supporting Document(s) Laboratory test finding (navigational concept) Laboratory test result [facility] (Osmel Alvarez MD) COMPLETE BLOOD COUNT Laboratory test finding (navigational concept) 3.24 10^6/uL 4 .20-5.40 Below low normal [facility] (Osmel Alvarez MD) Laboratory test finding (navigational concept) 7.6 10^3/uL 4.2-11.0 [facility] (Osmel Alvarez MD) Laboratory test finding (navigational concept) 10.9 g/dL 1 2.0-16.0 Below low normal [facility] (Osmel Alvarez MD) Laboratory test finding (navigational concept) 33.4 % 3 7.0-47.0 Below low normal [facility] (Osmel Alvarez MD) Laboratory test finding (navigational concept) 103.1 fL 8 1.0-101 Above high normal [facility] (Osmel Alvarez MD) Laboratory test finding (navigational concept) 33.6 pg 27.0-34.0 [facility] (Osmel Alvarez MD) Laboratory test finding (navigational concept) 32.6 g/dL 31.0-36.0 [facility] (Osmel Alvarez MD) Laboratory test finding (navigational concept) 17.2 % 1 1.5-14.5 Above high normal [facility] (Osmel Alvarez MD) Laboratory test finding (navigational concept) 351 10^3/uL 150-450 [facility] (Osmel Alvarez MD) Laboratory test finding (navigational concept) 70.9 % 37.0-80.0 [facility] (Osmel Alvarez MD) Laboratory test finding (navigational concept) 8.8 fL 7.4-10.4 [facility] (Osmel Alvarez MD) Laboratory test finding (navigational concept) 12.5 % 2 5.0-40.0 Below low normal [facility] (Osmel Alvarez MD) Laboratory test finding (navigational concept) 1.1 % 0.0-2.5 [facility] (Osmel Alvarez MD) Laboratory test finding (navigational concept) 2.2 % 0.0-7.0 [facility] (Osmel Alvarez MD) Laboratory test finding (navigational concept) 12.8 % 3.0-8.0 Above high normal [facility] (Osmel Alvarez MD) Laboratory test finding (navigational concept) 5.39 10^3/uL 2.00-6.90 [facility] (Osmel Alvarez MD) Laboratory test finding (navigational concept) 0.0 % 0.0-0.0 [facility] (Osmel Alvarez MD) Laboratory test finding (navigational concept) 0.5 % 0.0-0.0 Above high normal [facility] (Osmel Alvarez MD) Laboratory test finding (navigational concept) 0.95 10^3/uL 0.60-3.40 [facility] (Osmel Alvarez MD) Laboratory test finding (navigational concept) 0.97 10^3/uL 0 .00-0.90 Above high normal [facility] (Osmel Alvarez MD) Laboratory test finding (navigational concept) 0.04 10^3/uL 0.00-0.10 [facility] (Osmel Alvarez MD) Laboratory test finding (navigational concept) 0.08 10^3/uL 0.00-0.20 [facility] (Osmel Alvarez MD) Laboratory test finding (navigational concept) 0.17 10^3/uL 0.00-0.70 [facility] (Osmel Alvarez MD) Laboratory test finding (navigational concept) Laboratory test result [facility] (Osmel Alvarez MD) Laboratory test finding (navigational concept) Laboratory test result [facility] (Osmel Alvarez MD) Laboratory test finding (navigational concept) 0.00 10^3/uL 0.00-0.00 [facility] (Osmel Alvarez MD) ID Date Data Source [id number] 03/21/2021 09:17:00 AM EDT [facility] Name Value Range Interpretation Code Description Data Maura rce(s) Supporting Document(s) Magnesium [Mass/volume] in Serum or Plasma 1.3 MG/DL 1.7 - 2.2 L [facility] ID Date Data Source [id number] 03/21/2021 09:16:00 AM EDT [facility] Name Value Range Interpretation Code Description Data Maura rce(s) Supporting Document(s) COMPREHENSIVE METABOLIC PANEL [facility] COMPREHENSIVE METABOLIC PANEL Sodium [Moles/volume] in Serum or Plasma 139 mEq/L 134 - 153 [facility] Potassium [Moles/volume] in Serum or Plasma 4.1 mEq/L 3.6 - 5.0 [facility] Chloride [Moles/volume] in Serum or Plasma 98 mEq/L 98 - 107 [facility] Carbon dioxide, total [Moles/volume] in Serum or Plasma 31 MEQ/L 22 - 30 H [facility] Glucose [Mass/volume] in Serum or Plasma 116 MG/DL 70 - 99 H [facility] BUN 5 MG/DL 7 - 21 L [facility] Creatinine [Mass/volume] in Serum or Plasma 0.9 MG/DL 0.7 - 1.5 [facility] BUN/CREAT 6 8 - 27 L [facility] Protein [Mass/volume] in Serum or Plasma 5.9 G/DL 6.3 - 8.2 L [facility] Albumin [Mass/volume] in Serum or Plasma 3.5 G/DL 3.9 - 5.0 L [facility] Globulin [Mass/volume] in Serum by calculation 2.4 GM/DL 2.4 - 3.2 [facility] A/G RATIO 1.5 0.8 - 2.0 [facility] Calcium [Mass/volume] in Serum or Plasma 9.2 MG/DL 8.4 - 10.2 [facility] Bilirubin.total [Mass/volume] in Serum or Plasma <0.7 MG/DL 0.2 - 1.3 [facility] Alkaline phosphatase [Enzymatic activity/volume] in Serum or Plasma 87 U/L 38 - 126 [facility] Aspartate aminotransferase [Enzymatic activity/volume] in Serum or Plasma 18 U/L 5 - 40 [facility] Alanine aminotransferase [Enzymatic activity/volume] in Seru m or Plasma 7 U/L 7 - 56 [facility] Anion gap 3 in Serum or Plasma 10.0 mmol/L 8.0 - 16.0 [facility] AGE 55 yrs [facility] al NON-AA GFR >60 mL/min [facility] ital AFR AMER GFR >60 mL/min [facility] Male GFR In [...] >32 mL/min Normal ID Date Data Source [id number] 03/21/2021 08:49:00 AM EDT [facility] Name Value Range Interpretation Code Description Data Maura rce(s) Supporting Document(s) CBC W/AUTOMATED DIFF [facility] COMPLETE BLOOD COUNT Leukocytes [#/volume] in Blood by Automated count 7.6 10^3/uL 4.2 - 1 1.0 [facility] Erythrocytes [#/volume] in Blood by Automated count 3.24 10^6/uL 4. 20 - 5.40 L [facility] Hemoglobin [Mass/volume] in Blood 10.9 g/dL 12.0 - 16.0 L [facility] Hematocrit [Volume Fraction] of Blood by Automated count 33.4 % 3 7.0 - 47.0 L [facility] Erythrocyte mean corpuscular volume [Entitic volume] b y Automated count 103.1 fL 81.0 - 101 H [facility] Erythrocyte mean corpuscular hemoglobin [Entitic mass] by Automated count 33.6 pg 27.0 - 34.0 [facility] Erythrocyte mean corpuscular hemoglobin concentration [Mass/volume] by Automated count 32.6 g/dL 31.0 - 36.0 [facility] Erythrocyte distribution width [Ratio] by Automated count 17.2 % 11.5 - 14.5 H [facility] Platelets [#/volume] in Blood by Automated count 351 10^3/uL 150 - 45 0 [facility] Platelet mean volume [Entitic volume] in Blood by Automated count 8.8 fL 7.4 - 10.4 [facility] Neutrophils/100 leukocytes in Blood by Automated count 70.9 % 37. 0 - 80.0 [facility] Lymphocytes/100 leukocytes in Blood by Manual count 12.5 % 25.0 - 40.0 L [facility] Monocytes/100 leukocytes in Blood by Automated count 12.8 % 3.0 - 8.0 H [facility] Eosinophils/100 leukocytes in Blood by Automated count 2.2 % 0.0 - 7.0 [facility] Basophils/100 leukocytes in Blood by Automated count 1.1 % 0.0 - 2.5 [facility] %IG 0.5 % 0.0 - 0.0 H [facility] al %NRBC 0.0 % 0.0 - 0.0 [facility] al Neutrophils [#/volume] in Blood by Automated count 5.39 10^3/uL 2.00 - 6.90 [facility] Lymphocytes [#/volume] in Blood by Automated count 0.95 10^3/uL 0.60 - 3.40 [facility] Monocytes [#/volume] in Blood by Automated count 0.97 10^3/uL 0.00 - 0.90 H [facility] Eosinophils [#/volume] in Blood by Automated count 0.17 10^3/uL 0.00 - 0.70 [facility] Basophils [#/volume] in Blood by Automated count 0.08 10^3/uL 0.00 - 0.20 [facility] #IG 0.04 10^3/uL 0.00 - 0.10 [facility] #NRBC 0.00 10^3/uL 0.00 - 0.00 [facility] MANUAL DIFF NOT INDICATED [facility] RBC MORPH NOT INDICATED [facility] spital ID Date Data Source [id number] 03/16/2021 07:55:00 AM EDT [facility] (Osmel Alvarez MD) Name Value Range Interpretation Code Description Data Maura rce(s) Supporting Document(s) Laboratory test finding (navigational concept) Laboratory test result [facility] (Osmel Alvarez MD) COMPLETE BLOOD COUNT Laboratory test finding (navigational concept) 9.2 10^3/uL 4.2-11.0 [facility] (Osmel Alvarez MD) Laboratory test finding (navigational concept) 3.26 10^6/uL 4 .20-5.40 Below low normal [facility] (Osmel Alvarez MD) Laboratory test finding (navigational concept) 101.2 fL 8 1.0-101 Above high normal [facility] (Osmel Alvarez MD) Laboratory test finding (navigational concept) 33.0 % 3 7.0-47.0 Below low normal [facility] (Osmel Alvarez MD) Laboratory test finding (navigational concept) 11.0 g/dL 1 2.0-16.0 Below low normal [facility] (Osmel Alvarez MD) Laboratory test finding (navigational concept) 33.7 pg 27.0-34.0 [facility] (Osmel Alvarez MD) Laboratory test finding (navigational concept) 33.3 g/dL 31.0-36.0 [facility] (Osmel Alvarez MD) Laboratory test finding (navigational concept) 333 10^3/uL 150-450 [facility] (Osmel Alvarez MD) Laboratory test finding (navigational concept) 9.0 fL 7.4-10.4 [facility] (Osmel Alvarez MD) Laboratory test finding (navigational concept) 17.4 % 1 1.5-14.5 Above high normal [facility] (Osmel Alvarez MD) Laboratory test finding (navigational concept) 75.4 % 37.0-80.0 [facility] (Osmel Alvarez MD) Laboratory test finding (navigational concept) 9.7 % 25.0-40 .0 Below low normal [facility] (Osmel Alvarez MD) Laboratory test finding (navigational concept) 0.8 % 0.0-7.0 [facility] (Osmel Alvarez MD) Laboratory test finding (navigational concept) 13.2 % 3.0-8.0 Above high normal [facility] (Osmel Alvarez MD) Laboratory test finding (navigational concept) 0.5 % 0.0-2.5 [facility] (Osmel Alvarez MD) Laboratory test finding (navigational concept) 0.4 % 0.0-0.0 Above high normal [facility] (Osmel Alvarez MD) Laboratory test finding (navigational concept) 0.0 % 0.0-0.0 [facility] (Osmel Alvarez MD) Laboratory test finding (navigational concept) 0.89 10^3/uL 0.60-3.40 [facility] (Osmel Alvarez MD) Laboratory test finding (navigational concept) 6.94 10^3/uL 2 .00-6.90 Above high normal [facility] (Osmel Alvarez MD) Laboratory test finding (navigational concept) 0.05 10^3/uL 0.00-0.20 [facility] (Osmel Alvarez MD) Laboratory test finding (navigational concept) 1.21 10^3/uL 0 .00-0.90 Above high normal [facility] (Osmel Alvarez MD) Laboratory test finding (navigational concept) 0.07 10^3/uL 0.00-0.70 [facility] (Osmel Alvarez MD) Laboratory test finding (navigational concept) Laboratory test result [facility] (Osmel Alvarez MD) Laboratory test finding (navigational concept) 0.00 10^3/uL 0.00-0.00 [facility] (Osmel Alvarez MD) Laboratory test finding (navigational concept) 0.04 10^3/uL 0.00-0.10 [facility] (Osmel Alvarez MD) Laboratory test finding (navigational concept) 81 % 37-80 Above high normal [facility] (Osmel Alvarez MD) Laboratory test finding (navigational concept) 4 % 25-40 Below low normal [facility] (Osmel Alvarez MD) Laboratory test finding (navigational concept) 14 % 3-8 Above high normal [facility] (Osmel Alvarez MD) Laboratory test finding (navigational concept) 1 % 0-7 [facility] (Osmel Alvarez MD) Laboratory test finding (navigational concept) Laboratory test r esult Abnormal (applies to non-numeric results) [facility] (Osmel Alvarez MD ) Laboratory test finding (navigational concept) Laboratory test result [facility] (Osmel Alvarez MD) Laboratory test finding (navigational concept) Laboratory test r esult Abnormal (applies to non-numeric results) [facility] (Osmel Alvarez MD ) COMMENT: Laboratory test finding (navigational concept) Laboratory test r esult Abnormal (applies to non-numeric results) [facility] (Osmel Alvarez MD ) { SICKLE CELL (NORMAL: NONE SEEN ) ID Date Data Source [id number] 03/16/2021 07:55:00 AM EDT [facility] (Osmel Alvarez MD) Name Value Range Interpretation Code Description Data Maura rce(s) Supporting Document(s) Iron [Mass/volume] in Serum or Plasma 46 ug/dL 42-135 [facility] (Osmel Alvarez MD) Thyrotropin [Units/volume] in Serum or Plasma by Detec tion limit <= 0.005 mIU/L 1.34 uIU/mL 0.47-5.01 [facility] (Osmel Alvarez MD) Thyroxine (T4) free [Mass/volume] in Serum or Plasma 1.54 ng/dL 0.93- 1.70 [facility] (Osmel Alvarez MD) ID Date Data Source [id number] 03/16/2021 07:55:00 AM EDT [facility] (Osmel Alvarez MD) Name Value Range Interpretation Code Description Data Maura rce(s) Supporting Document(s) Laboratory test finding (navigational concept) 0.9 mg/dL 1 .7-2.2 Below lower panic limits [facility] (Osmel Alvarez MD) Laboratory test finding (navigational concept) Laboratory test result [facility] (Osmel Alvarez MD) Laboratory test finding (navigational concept) Laboratory test result [facility] (Osmel Alvarez MD) Laboratory test finding (navigational concept) Laboratory test result [facility] (Osmel Alvarez MD) ID Date Data Source [id number] 03/16/2021 07:55:00 AM EDT [facility] (Osmel Alvarez MD) Name Value Range Interpretation Code Description Data Maura rce(s) Supporting Document(s) Cobalamin (Vitamin B12) [Mass/volume] in Serum or Plasma 573 pg/mL 2 32-1245 [facility] (Osmel Alvarez MD) ID Date Data Source [id number] 03/16/2021 07:55:00 AM EDT [facility] (Osmel Alvarez MD) Name Value Range Interpretation Code Description Data Maura rce(s) Supporting Document(s) Laboratory test finding (navigational concept) Laboratory test result [facility] (Osmel Alvarez MD) COMPREHENSIVE METABOLIC PANEL Laboratory test finding (navigational concept) 93 meq/L 98-107 Below low normal [facility] (Omsel Alvarez MD) Laboratory test finding (navigational concept) 139 meq/L 134-153 [facility] (Osmel Alvarez MD) Laboratory test finding (navigational concept) 3.3 meq/L 3 .6-5.0 Below low normal [facility] (Osmel Alvarez MD) Laboratory test finding (navigational concept) 33 meq/L 22-30 Above high normal [facility] (Osmel Alvarez MD) Laboratory test finding (navigational concept) 117 mg/dL 7 0-99 Above high normal [facility] (Osmel Alvarez MD) Laboratory test finding (navigational concept) 6 mg/dL 7-21 Below low normal [facility] (Osmel Alvarez MD) Laboratory test finding (navigational concept) 8 8-27 [facility] (Osmel Alvarez MD) Laboratory test finding (navigational concept) 6.0 g/dL 6 .3-8.2 Below low normal [facility] (Osmel Alvarez MD) Laboratory test finding (navigational concept) 0.8 mg/dL 0.7-1.5 [facility] (Osmel Alvarez MD) Laboratory test finding (navigational concept) 3.7 g/dL 3 .9-5.0 Below low normal [facility] (Osmel Alvarez MD) Laboratory test finding (navigational concept) 1.6 0.8-2.0 [facility] (Osmel Alvarez MD) Laboratory test finding (navigational concept) 2.3 GM/DL 2 .4-3.2 Below low normal [facility] (Osmel Alvarez MD) Laboratory test finding (navigational concept) Laboratory test resu lt 0.2-1.3 [facility] (Osmel Alvarez MD) Laboratory test finding (navigational concept) 7.9 mg/dL 8 .4-10.2 Below low normal [facility] (Osmel Alvarez MD) Laboratory test finding (navigational concept) 9 U/L 7-56 [facility] (Osmel Alvarez MD) Laboratory test finding (navigational concept) 20 U/L 5-40 [facility] (Osmel Alvarez MD) Laboratory test finding (navigational concept) 91 U/L 38-126 [facility] (Osmel Alvarez MD) Laboratory test finding (navigational concept) 13.0 mmol/L 8.0-16.0 [facility] (Osmel Alvarez MD) Laboratory [...] >32 mL/min Normal ID Date Data Source [id number] 03/16/2021 10:06:00 AM EDT [facility] Name Value Range Interpretation Code Description Data Maura rce(s) Supporting Document(s) Cobalamin (Vitamin B12) [Mass/volume] in Serum or Plasma 573 PG/ML 232 - 1245 [facility] ID Date Data Source [id number] 03/16/2021 08:37:00 AM EDT [facility] Name Value Range Interpretation Code Description Data Maura rce(s) Supporting Document(s) Magnesium [Mass/volume] in Serum or Plasma 0.9 MG/DL 1.7 - 2.2 LL [facility] CALL/ READ BACK KIM MATA RN [facility] BY: DESIRAE [facility] DATE/TIME 03.16.21904 [facility] ID Date Data Source [id number] 03/16/2021 08:57:00 AM EDT [facility] Name Value Range Interpretation Code Description Data Maura rce(s) Supporting Document(s) Thyrotropin [Units/volume] in Serum or Plasma by Detec tion limit <= 0.05 mIU/L 1.34 uIU/mL 0.47 - 5.01 [facility] ID Date Data Source [id number] 03/16/2021 08:57:00 AM EDT [facility] Name Value Range Interpretation Code Description Data Maura rce(s) Supporting Document(s) Thyroxine (T4) free index in Serum or Plasma by calculation 1.54 NG/DL 0.93 - 1.70 [facility] ID Date Data Source [id number] 03/16/2021 08:37:00 AM EDT [facility] Name Value Range Interpretation Code Description Data Maura rce(s) Supporting Document(s) Iron [Mass/volume] in Serum or Plasma 46 UG/DL 42 - 135 [facility] ID Date Data Source [id number] 03/16/2021 08:37:00 AM EDT [facility] Value Range Interpretation Code Description Data Maura rce(s) Supporting Document(s) COMPREHENSIVE METABOLIC PANEL [facility] COMPREHENSIVE METABOLIC PANEL Sodium [Moles/volume] in Serum or Plasma 139 mEq/L 134 - 153 [facility] Potassium [Moles/volume] in Serum or Plasma 3.3 mEq/L 3.6 - 5.0 L [facility] Chloride [Moles/volume] in Serum or Plasma 93 mEq/L 98 - 107 L [facility] Carbon dioxide, total [Moles/volume] in Serum or Plasma 33 MEQ/L 22 - 30 H [facility] Glucose [Mass/volume] in Serum or Plasma 117 MG/DL 70 - 99 H [facility] BUN 6 MG/DL 7 - 21 L [facility] Creatinine [Mass/volume] in Serum or Plasma 0.8 MG/DL 0.7 - 1.5 [facility] BUN/CREAT 8 8 - 27 [facility] Protein [Mass/volume] in Serum or Plasma 6.0 G/DL 6.3 - 8.2 L [facility] Albumin [Mass/volume] in Serum or Plasma 3.7 G/DL 3.9 - 5.0 L [facility] Globulin [Mass/volume] in Serum by calculation 2.3 GM/DL 2.4 - 3.2 L [facility] A/G RATIO 1.6 0.8 - 2.0 [facility] Calcium [Mass/volume] in Serum or Plasma 7.9 MG/DL 8.4 - 10.2 L [facility] Bilirubin.total [Mass/volume] in Serum or Plasma <0.7 MG/DL 0.2 - 1.3 [facility] Alkaline phosphatase [Enzymatic activity/volume] in Serum or Plasma 91 U/L 38 - 126 [facility] Aspartate aminotransferase [Enzymatic activity/volume] in Serum or Plasma 20 U/L 5 - 40 [facility] Alanine aminotransferase [Enzymatic activity/volume] in Seru m or Plasma 9 U/L 7 - 56 [facility] Anion gap 3 in Serum or Plasma 13.0 mmol/L 8.0 - 16.0 [facility] AGE 55 yrs [facility] NON-AA GFR >60 mL/min [facility] ital AFR AMER GFR >60 mL/min [facility] Male GFR In [...] >32 mL/min Normal ID Date Data Source [id number] 03/16/2021 08:31:00 AM EDT [facility] Name Value Range Interpretation Code Description Data Maura rce(s) Supporting Document(s) CBC W/AUTOMATED DIFF [facility] COMPLETE BLOOD COUNT Leukocytes [#/volume] in Blood by Automated count 9.2 10^3/uL 4.2 - 1 1.0 [facility] Erythrocytes [#/volume] in Blood by Automated count 3.26 10^6/uL 4. 20 - 5.40 L [facility] Hemoglobin [Mass/volume] in Blood 11.0 g/dL 12.0 - 16.0 L [facility] Hematocrit [Volume Fraction] of Blood by Automated count 33.0 % 3 7.0 - 47.0 L [facility] Erythrocyte mean corpuscular volume [Entitic volume] b y Automated count 101.2 fL 81.0 - 101 H [facility] Erythrocyte mean corpuscular hemoglobin [Entitic mass] by Automated count 33.7 pg 27.0 - 34.0 [facility] Erythrocyte mean corpuscular hemoglobin concentration [Mass/volume] by Automated count 33.3 g/dL 31.0 - 36.0 [facility] Erythrocyte distribution width [Ratio] by Automated count 17.4 % 11.5 - 14.5 H [facility] Platelets [#/volume] in Blood by Automated count 333 10^3/uL 150 - 45 0 [facility] Platelet mean volume [Entitic volume] in Blood by Automated count 9.0 fL 7.4 - 10.4 [facility] Neutrophils/100 leukocytes in Blood by Automated count 75.4 % 37. 0 - 80.0 [facility] Lymphocytes/100 leukocytes in Blood by Manual count 9.7 % 25.0 - 40.0 L [facility] Monocytes/100 leukocytes in Blood by Automated count 13.2 % 3.0 - 8.0 H [facility] Eosinophils/100 leukocytes in Blood by Automated count 0.8 % 0.0 - 7.0 [facility] Basophils/100 leukocytes in Blood by Automated count 0.5 % 0.0 - 2.5 [facility] %IG 0.4 % 0.0 - 0.0 H [facility] %NRBC 0.0 % 0.0 - 0.0 [facility] [#/volume] in Blood by Automated count 6.94 10^3/uL 2.00 - 6.90 H [facility] Lymphocytes [#/volume] in Blood by Automated count 0.89 10^3/uL 0.60 - 3.40 [facility] Monocytes [#/volume] in Blood by Automated count 1.21 10^3/uL 0.00 - 0.90 H [facility] Eosinophils [#/volume] in Blood by Automated count 0.07 10^3/uL 0.00 - 0.70 [facility] Basophils [#/volume] in Blood by Automated count 0.05 10^3/uL 0.00 - 0.20 [facility] #IG 0.04 10^3/uL 0.00 - 0.10 [facility] #NRBC 0.00 10^3/uL 0.00 - 0.00 [facility] ospital MANUAL DIFF SEE BELOW [facility] ital Segmented neutrophils/100 leukocytes in Blood by Manual count 81 % 37 - 80 H [facility] %LYMPH 4 % 25 - 40 L [facility] %MONO 14 % 3 - 8 H [facility] al %EOS 1 % 0 - 7 [facility] RBC MORPH [facility] An[facility]ocytosis [Presence] in Blood by Light microscopy 1+ SHAUNA L: NONE SEEN A [facility] HYPO 1+ NORMAL: NONE SEEN A [facility] { SICKLE CELL (NORMAL: NONE SEEN ) Stomatocytes [Presence] in Blood by Light microscopy 1+ SHAUNA L: NONE SEEN A [facility] COMMENT: ID Date Data Source [id number] 03/14/2021 10:37:00 AM EDT [facility] [address] [place] [address] PHONE: [phone] FAX: [phone] Name .................. : JUANITO Daniels Acct Number.................. : [id number] ROOM. ................. : Number ................... : [id number] Stay type ............. : O/P Discharge Date......... ... : 03/13/21 Admit Date ......... : 03/13/21 Admit Phys .................... : KIM VANESSA Date of ....... : 1965 Family Phys ................... : SEQUEIRA Phone .................. : [phone] Age ................................ : 55 Film# .................. .:[id number] Sex ................................. : F Unsigned transcriptions are preliminary reports and do not represent a medical or legal document CT THORAX W/O CONTRAST [id number] COMPLETE:03/13/21 10:32 [facility] [address] Reason for Exam: COPD CT OF THE CHEST WITHOUT CONTRAST: TECHNIQUE: CT scan of the chest is performed without the use of intravenous contrast. COMPARISON: 12/20/20 FINDINGS: Again seen is essentially complete consolidation of the left upper lobe with ground glass opacity in the aerated portion of the left lower lobe. This appears to have somewhat improved when compared to the prior examination. There is slightly greater consolidated opacity in the lingular segment of the left upper lobe apparently representing atelectasis. There is now a left pleural effusion. There is again hyperaeration of the right lung. There is again shift of the mediastinum to the left. There is again a right lower lobe subsegmental atelectasis and/or pleuroparenchymal scarring with perforation of the pleura of the right lung, all of which again, is not significantly changed from prior examination. There is no mediastinal or axially adenopathy by CT size criteria. There is again, a small size pericardial effusion. The appearance of the spine is again similar to prior examination with compression fractures in the mid- thoracic spine with fixation hardware in place, as previous. There is again a superior endplate fracture of what appears to be L1, again similar in appearance to prior examination. IMPRESSION: No significant change in the appearance of the lungs with essentially complete consolidation of the left upper lobe, as described and discussed above. While performing the above CT examination, radiation dose reduction was accomplished utilizing automated exposure control, adjusting of the mA and kV based on the patient's body size and/or the use of imperative reconstructive techniques. Page 1 of 2 [facility] [address] [place] [address] PHONE: [phone] FAX: [phone] Name .................. : SOLOMON CHANTALE Jeremiah Acct Number.................. : [id number] ROOM. ................. : MR Number ................... : [id number] Stay type ............. : O/P Discharge Date......... ... : 03/13/21 Admit Date ......... : 03/13/21 Admit Phys .................... : KIM MENDEZ Date of ....... : 1965 Family Phys ................... : REGINE GAIL Phone .................. : [phone] Age ................................ : 55 Film# .................. .:[id number] Sex ................................. : F Unsigned transcriptions are preliminary reports and do not represent a medical or legal document CT THORAX W/O CONTRAST [id number] COMPLETE:03/13/21 10:32 [facility] [address] Reason for Exam: COPD CT dose: 523 mGycm Electronically Reviewed and Signed By Elier Rodríguez MD , 03/14/21 10:37, AML Transcribe Initials: DZ , Transcribe Date: 03/13/21 20:44, Dictation Date: Copy for: KIM ESTEVES via modem Copy for: 710 MED REC Page 2 of 2 Name Value Range Interpretation Code Description Data Maura rce(s) Supporting Document(s) ID Date Data Source [id number] 03/08/2021 11:36:00 AM EDT [facility] (Osmel Alvarez MD) Name Value Range Interpretation Code Description Data Maura rce(s) Supporting Document(s) Laboratory test finding (navigational concept) Laboratory test result [facility] (Osmel Alvarez MD) _CULTURE URINE_ ^$[id number] ^^[id number] $$[id number] ^^[id number] $$[id number] $$058333 $$542118 $$752821 $$551460 $$237576 $$699968 $$923712 $$610024 $$478750 $$731504 $$187601 $$524282 $$968770 $$836349 $$703467 $$784369 $$224796 $$068470 $$904453 $$208761 $$284322 $$672036 ^^934710 $$446807 $$976182 $$[id number] -- Continued on next page -- Patient: JUANITO Daniels Order: [id number] Page 2 Culture: CULTURE URINE Status: Final -- Continued on next page -- Patient: JUANITO Daniels Order: [id number] Page 2 Culture: CULTURE URINE Status: Prelim $$[id number] $$[id number] REPORTED DATE/TIME: 03/13/2021 07:06 Culture: CULTURE URINE Status: Final Urine Culture,Comprehensive: P1 No growth in 36 - 48 hours. Previous result entered on 03/10/2021 23:58 ET No growth after 18-24 hours. P1 Test performed by: [facility] Azul DAMON #: [id number] [address] [place] [address] [id number] [facility] [address] Sales Performance Analyst : Yonas Rascon MD NPI #: Mimeographer : 03/12/21.0627.XMT.SENT REF 03/13/21.0736.XMT.SENT REF ID Date Data Source [id number] 03/08/2021 11:36:00 AM EDT [facility] (Osmel Alvarze MD) Name Value Range Interpretation Code Description Data Maura rce(s) Supporting Document(s) Magnesium [Mass/volume] in Serum or Plasma 1.0 mg/dL 1.7-2.2 Belo w low normal [facility] (Osmel Alvarez MD) ID Date Data Source [id number] 03/08/2021 11:36:00 AM EDT [facility] (Osmel Alvarez MD) Name Value Range Interpretation Code Description Data Maura rce(s) Supporting Document(s) Laboratory test finding (navigational concept) Laboratory test result [facility] (Osmel Alvarez MD) URINALYSIS Laboratory test finding (navigational concept) Laboratory test result [facility] (Osmel Alvarez MD) Laboratory test finding (navigational concept) Laboratory test result [facility] (sOmel Alvarez MD) Laboratory test finding (navigational concept) Laboratory test result [facility] (Osmel Alvarez MD) Laboratory test finding (navigational concept) Laboratory test result [facility] (Osmel Alvarez MD) Laboratory test finding (navigational concept) 6 5-9 [facility] (Osmel Alvarez MD) Laboratory test finding (navigational concept) 1.015 1.001-1.030 [facility] (Osmel Alvarez MD) Laboratory test finding (navigational concept) 5 Abnormal (applies to non- numeric results) [facility] (Osmel Alvarez MD) Laboratory test finding (navigational concept) Laboratory test result [facility] (Osmel Alvarez MD) Laboratory test finding (navigational concept) 10 Abnormal (applies to non- numeric results) [facility] (Osmel Alvarez MD) Laboratory test finding (navigational concept) Laboratory test result [facility] (Osmel Alvarez MD) Laboratory test finding (navigational concept) 30 [facility] (Osmel Alvarez MD) Laboratory test finding (navigational concept) 1 [facility] (Osmel Alvarez MD) Laboratory test finding [...] non-numeric results) [facility] (Osmel Alvarez MD ) Laboratory test finding (navigational concept) Laboratory test result [facility] (Osmel Alvarez MD) ID Date Data Source [id number] 03/08/2021 11:36:00 AM EDT [facility] (Osmel Alvarez MD) Name Value Range Interpretation Code Description Data Maura rce(s) Supporting Document(s) Cobalamin (Vitamin B12) [Mass/volume] in Serum or Plasma 527 pg/mL 2 32-1245 [facility] (Osmel Alvarez MD) ID Date Data Source [id number] 03/08/2021 11:36:00 AM EDT [facility] (Osmel Alvarez MD) Name Value Range Interpretation Code Description Data Maura rce(s) Supporting Document(s) Laboratory test finding (navigational concept) Laboratory test result [facility] (Osmel Alvarez MD) COMPREHENSIVE METABOLIC PANEL Laboratory test finding (navigational concept) 141 meq/L 134-153 [facility] (Osmel Alvarez MD) Laboratory test finding (navigational concept) 4.1 meq/L 3.6-5.0 [facility] (Osmel Alvarez MD) Laboratory test finding (navigational concept) 97 meq/L 98-107 Below low normal [facility] (Osmel Alvarez MD) Laboratory test finding (navigational concept) 34 meq/L 22-30 Above high normal [facility] (Osmel Alvarez MD) Laboratory test finding (navigational concept) 96 mg/dL 70-99 [facility] (Osmel Alvarez MD) Laboratory test finding (navigational concept) 8 mg/dL 7-21 [facility] (Osmel Alvarez MD) Laboratory test finding (navigational concept) 0.9 mg/dL 0.7-1.5 [facility] (Osmel Alvarez MD) Laboratory test finding (navigational concept) 9 8-27 [facility] (Osmel Alvarez MD) Laboratory test finding (navigational concept) 3.5 g/dL 3 .9-5.0 Below low normal [facility] (Osmel Alvarez MD) Laboratory test finding (navigational concept) 5.7 g/dL 6 .3-8.2 Below low normal [facility] (Osmel Alvarez MD) Laboratory test finding (navigational concept) 1.6 0.8-2.0 [facility] (Osmel Alvarez MD) Laboratory test finding (navigational concept) 2.2 GM/DL 2 .4-3.2 Below low normal [facility] (Osmel Alvarez MD) Laboratory test finding (navigational concept) 7.5 mg/dL 8 .4-10.2 Below low normal [facility] (Osmel Alvarez MD) Laboratory test finding (navigational concept) Laboratory test resu lt 0.2-1.3 [facility] (Osmel Alvarez MD) Laboratory test finding (navigational concept) 18 U/L 5-40 [facility] (Osmel Alvarez MD) Laboratory test finding (navigational concept) 8 U/L 7-56 [facility] (Osmel Alvarez MD) Laboratory test finding (navigational concept) 75 U/L 38-126 [facility] (Osmel Alvarez MD) Laboratory test finding (navigational concept) 55 yrs [facility] (Osmel Alvarez MD) Laboratory test finding (navigational concept) 10.0 mmol/L 8.0-16.0 [facility] (Osmel Alvarez MD) Laboratory [...] >32 mL/min Normal ID Date Data Source [id number] 03/08/2021 11:36:00 AM EDT [facility] (Osmel Alvarez MD) Name Value Range Interpretation Code Description Data Maura rce(s) Supporting Document(s) Iron [Mass/volume] in Serum or Plasma 41 ug/dL 42-135 Below low normal [facility] (Osmel Alvarez MD) Hemoglobin A1c/Hemoglobin.total in Blood 4.8 % 4.4-6.1 [facility] (Osmel Alvarez MD) {A1] {HB] ID Date Data Source [id number] 03/08/2021 11:36:00 AM EDT [facility] (Osmel Alvarez MD) Name Value Range Interpretation Code Description Data Maura rce(s) Supporting Document(s) Laboratory test finding (navigational concept) 8.6 10^3/uL 4.2-11.0 [facility] (Osmel Alvarez MD) Laboratory test finding (navigational concept) Laboratory test result [facility] (Osmel Alvarez MD) COMPLETE BLOOD COUNT Laboratory test finding (navigational concept) 2.96 10^6/uL 4 .20-5.40 Below low normal [facility] (Osmel Alvarez MD) Laboratory test finding (navigational concept) 10.1 g/dL 1 2.0-16.0 Below low normal [facility] (Osmel Alvarez MD) Laboratory test finding (navigational concept) 31.1 % 3 7.0-47.0 Below low normal [facility] (Osmel Alvarez MD) Laboratory test finding (navigational concept) 105.1 fL 8 1.0-101 Above high normal [facility] (Osmel Alvarez MD) Laboratory test finding (navigational concept) 34.1 pg 2 7.0-34.0 Above high normal [facility] (Osmel Alvarez MD) Laboratory test finding (navigational concept) 32.5 g/dL 31.0-36.0 [facility] (Osmel Alvarez MD) Laboratory test finding (navigational concept) 17.8 % 1 1.5-14.5 Above high normal [facility] (Osmel Alvarez MD) Laboratory test finding (navigational concept) 8.8 fL 7.4-10.4 [facility] (Osmel Alvarez MD) Laboratory test finding (navigational concept) 314 10^3/uL 150-450 [facility] (Osmel Alvarez MD) Laboratory test finding (navigational concept) 16.8 % 3.0-8.0 Above high normal [facility] (Osmel Alvarez MD) Laboratory test finding (navigational concept) 9.2 % 25.0-40 .0 Below low normal [facility] (Osmel Alvarez MD) Laboratory test finding (navigational concept) 71.5 % 37.0-80.0 [facility] (Osmel Alvarez MD) Laboratory test finding (navigational concept) 0.5 % 0.0-7.0 [facility] (Osmel Alvarez MD) Laboratory test finding (navigational concept) 0.8 % 0.0-2.5 [facility] (Osmel Alvarez MD) Laboratory test finding (navigational concept) 6.13 10^3/uL 2.00-6.90 [facility] (Osmel Alvarez MD) Laboratory test finding (navigational concept) 1.2 % 0.0-0.0 Above high normal [facility] (Osmel Alvarez MD) Laboratory test finding (navigational concept) 0.0 % 0.0-0.0 [facility] (Osmel Alvarez MD) Laboratory test finding (navigational concept) 0.79 10^3/uL 0.60-3.40 [facility] (Osmel Alvarez MD) Laboratory test finding (navigational concept) 1.44 10^3/uL 0 .00-0.90 Above high normal [facility] (Osmel Alvarez MD) Laboratory test finding (navigational concept) 0.04 10^3/uL 0.00-0.70 [facility] (Osmel Alvarez MD) Laboratory test finding (navigational concept) 0.07 10^3/uL 0.00-0.20 [facility] (Osmel Alvarez MD) Laboratory test finding (navigational concept) 0.10 10^3/uL 0.00-0.10 [facility] (Osmel Alvarez MD) Laboratory test finding (navigational concept) 0.00 10^3/uL 0.00-0.00 [facility] (Osmel Alvarez MD) Laboratory test finding (navigational concept) Laboratory test result [facility] (Osmel Alvarez MD) Laboratory test finding (navigational concept) 12 % 25-40 Below low normal [facility] (Osmel Alvarez MD) Laboratory test finding (navigational concept) 76 % 37-80 [facility] (Osmel Alvarez MD) Laboratory test finding (navigational concept) 10 % 3-8 Above high normal [facility] (Osmel Alvarez MD) Laboratory test finding (navigational concept) 2 % 0-7 [facility] (Osmel Alvarez MD) Laboratory test finding (navigational concept) Laboratory test r esult Abnormal (applies to non-numeric results) [facility] (Osmel Alvarez MD) Laboratory test finding (navigational concept) Laboratory test result [facility] (Osmel Alvarez MD) Laboratory test finding (navigational concept) Laboratory test r esult Abnormal (applies to non-numeric results) [facility] (Osmel Alvarez MD) Laboratory test finding (navigational concept) Laboratory test r esult Abnormal (applies to non-numeric results) [facility] (Osmel Alvarez MD) { SICKLE CELL (NORMAL: NONE SEEN ) Laboratory test finding (navigational concept) Laboratory test r esult Abnormal (applies to non-numeric results) [facility] (Osmel Alvarez MD) Laboratory test finding (navigational concept) Laboratory test r esult Abnormal (applies to non-numeric results) [facility] (Osmel Alvarez MD) COMMENT: ID Date Data Source [id number] 03/13/2021 07:36:00 AM EDT [facility] Name Value Range Interpretation Code Description Data Maura rce(s) Supporting Document(s) CULTURE URINE [facility] _CULTURE URINE_$$[id number]$$440651$$702396$$744351$$421977$$720325$$555054$$498731$$021229$$ 177760$$439770$$222792$$867526$$115522$$237775$$568633$$184212$$630588$$183039$$ 683260$$713074$$738775$$715973$$844208$$991463$$610117$$[id number] -- Continued on next page --Patient: JUANITO ROMAN Jeremiah Order: [id number] Page 2Culture: CULTURE URINE Status: Final ==== -- Continued on next page --Patient: JUANITO ROMAN Jeremiah Order: [id number] Page 2Culture: CULTURE URINE Status: Prelim =====$$[id number]$$[id number] DATE/TIME: 03/13/2021 07:06Culture: CULTURE URINE Status: FinalUrine Culture,Comprehensive: P1No growth in 36 - 48 hours. Previous result entered on 03/10/2021 23:58 ET No growth after 18-24 hours.P1 [facility] [id number] [address] [id number] [facility] [id number] Director : Yonas Rascon MD NPI #:Mimeographer : 03/12/21.0627.XMT.SENT REF 03/13/21.0736.XMT.SENT REF ID Date Data Source [id number] 03/08/2021 01:35:00 PM EDT [facility] Name Value Range Interpretation Code Description Data Maura rce(s) Supporting Document(s) Magnesium [Mass/volume] in Serum or Plasma 1.0 MG/DL 1.7 - 2.2 L [facility] ID Date Data Source [id number] 03/08/2021 12:59:00 PM EDT [facility] Name Value Range Interpretation Code Description Data Maura rce(s) Supporting Document(s) COMPREHENSIVE METABOLIC PANEL [facility] COMPREHENSIVE METABOLIC PANEL Sodium [Moles/volume] in Serum or Plasma 141 mEq/L 134 - 153 [facility] Potassium [Moles/volume] in Serum or Plasma 4.1 mEq/L 3.6 - 5.0 [facility] Chloride [Moles/volume] in Serum or Plasma 97 mEq/L 98 - 107 L [facility] Carbon dioxide, total [Moles/volume] in Serum or Plasma 34 MEQ/L 22 - 30 H [facility] Glucose [Mass/volume] in Serum or Plasma 96 MG/DL 70 - 99 [facility] BUN 8 MG/DL 7 - 21 [facility] Creatinine [Mass/volume] in Serum or Plasma 0.9 MG/DL 0.7 - 1.5 [facility] BUN/CREAT 9 8 - 27 [facility] al Protein [Mass/volume] in Serum or Plasma 5.7 G/DL 6.3 - 8.2 L [facility] Albumin [Mass/volume] in Serum or Plasma 3.5 G/DL 3.9 - 5.0 L [facility] Globulin [Mass/volume] in Serum by calculation 2.2 GM/DL 2.4 - 3.2 L [facility] A/G RATIO 1.6 0.8 - 2.0 [facility] Calcium [Mass/volume] in Serum or Plasma 7.5 MG/DL 8.4 - 10.2 L [facility] Bilirubin.total [Mass/volume] in Serum or Plasma <0.7 MG/DL 0.2 - 1.3 [facility] Alkaline phosphatase [Enzymatic activity/volume] in Serum or Plasma 75 U/L 38 - 126 [facility] Aspartate aminotransferase [Enzymatic activity/volume] in Serum or Plasma 18 U/L 5 - 40 [facility] Alanine aminotransferase [Enzymatic activity/volume] in Seru m or Plasma 8 U/L 7 - 56 [facility] Anion gap 3 in Serum or Plasma 10.0 mmol/L 8.0 - 16.0 [facility] AGE 55 yrs [facility] al NON-AA GFR >60 mL/min [facility] ital AFR AMER GFR >60 mL/min [facility] Male GFR In [...] >32 mL/min Normal ID Date Data Source [id number] 03/08/2021 01:15:00 PM EDT [facility] Name Value Range Interpretation Code Description Data Maura rce(s) Supporting Document(s) URINALYSIS [facility] URINALYSIS SOURCE R [facility] COLOR yellow NORMAL: Yellow [facility] CLARITY hazy NORMAL: Clear [facility] Specific gravity of Urine by Test strip 1.015 1.001 - 1.030 [facility] pH 6 5 - 9 [facility] al Glucose [Mass/volume] in Urine by Test strip NORM NORMAL: Negat [facility] Bilirubin.total [Presence] in Urine by Test strip NEG NORMAL: Negative [facility] Ketones [Presence] in Urine by Test strip 5 NORMAL: Negative [facility] Protein [Mass/volume] in Urine by Test strip 30 NORMAL: Negat [facility] Nitrite [Presence] in Urine by Test strip NEG NORMAL: Negative [facility] BLOOD 10 NORMAL: Negative [facility] Leukocyte esterase [Presence] in Urine by Test strip NEG SHAUNA L: Negative [facility] Urobilinogen [Mass/volume] in Urine by Test strip 1 less lupe n 1.0 mg/dL [facility] MICROSCOPIC See Below [facility] ital WBC 0 - 1 NORMAL: NONE SEEN [facility] Erythrocytes [#/volume] in Urine by Test strip None Seen NORMAL: NON E SEEN [facility] EPITHELIAL MODERATE NORMAL: NONE SEEN [facility] Bacteria [Presence] in Urine sediment by Light microscopy Tr david NORMAL: NONE SEEN [facility] ID Date Data Source [id number] 03/08/2021 01:12:00 PM EDT [facility] Name Value Range Interpretation Code Description Data Maura rce(s) Supporting Document(s) Cobalamin (Vitamin B12) [Mass/volume] in Serum or Plasma 527 PG/ML 232 - 1245 [facility] ID Date Data Source [id number] 03/08/2021 12:53:00 PM EDT [facility] Name Value Range Interpretation Code Description Data Maura rce(s) Supporting Document(s) Iron [Mass/volume] in Serum or Plasma 41 UG/DL 42 - 135 L [facility] ID Date Data Source [id number] 03/08/2021 12:17:00 PM EDT [facility] Name Value Range Interpretation Code Description Data Maura rce(s) Supporting Document(s) Hemoglobin A1c/Hemoglobin.total in Blood 4.8 % 4.4 - 6.1 [facility] {A1]{HB] ID Date Data Source [id number] 03/08/2021 12:06:00 PM EDT [facility] Name Value Range Interpretation Code Description Data Maura e(s) Supporting Document(s) CBC W/AUTOMATED DIFF [facility] COMPLETE BLOOD COUNT Leukocytes [#/volume] in Blood by Automated count 8.6 10^3/uL 4.2 - 1 1.0 [facility] Erythrocytes [#/volume] in Blood by Automated count 2.96 10^6/uL 4. 20 - 5.40 L [facility] Hemoglobin [Mass/volume] in Blood 10.1 g/dL 12.0 - 16.0 L [facility] Hematocrit [Volume Fraction] of Blood by Automated count 31.1 % 3 7.0 - 47.0 L [facility] Erythrocyte mean corpuscular volume [Entitic volume] b y Automated count 105.1 fL 81.0 - 101 H [facility] Erythrocyte mean corpuscular hemoglobin [Entitic mass] by Automated count 34.1 pg 27.0 - 34.0 H [facility] Erythrocyte mean corpuscular hemoglobin concentration [Mass/volume] by Automated count 32.5 g/dL 31.0 - 36.0 [facility] Erythrocyte distribution width [Ratio] by Automated count 17.8 % 11.5 - 14.5 H [facility] Platelets [#/volume] in Blood by Automated count 314 10^3/uL 150 - 45 0 [facility] Platelet mean volume [Entitic volume] in Blood by Automated count 8.8 fL 7.4 - 10.4 [facility] Neutrophils/100 leukocytes in Blood by Automated count 71.5 % 37. 0 - 80.0 [facility] Lymphocytes/100 leukocytes in Blood by Manual count 9.2 % 25.0 - 40.0 L [facility] Monocytes/100 leukocytes in Blood by Automated count 16.8 % 3.0 - 8.0 H [facility] Eosinophils/100 leukocytes in Blood by Automated count 0.5 % 0.0 - 7.0 [facility] Basophils/100 leukocytes in Blood by Automated count 0.8 % 0.0 - 2.5 [facility] %IG 1.2 % 0.0 - 0.0 H [facility] al %NRBC 0.0 % 0.0 - 0.0 [facility] al Neutrophils [#/volume] in Blood by Automated count 6.13 10^3/uL 2.00 - 6.90 [facility] Lymphocytes [#/volume] in Blood by Automated count 0.79 10^3/uL 0.60 - 3.40 [facility] Monocytes [#/volume] in Blood by Automated count 1.44 10^3/uL 0.00 - 0.90 H [facility] Eosinophils [#/volume] in Blood by Automated count 0.04 10^3/uL 0.00 - 0.70 [facility] Basophils [#/volume] in Blood by Automated count 0.07 10^3/uL 0.00 - 0.20 [facility] #IG 0.10 10^3/uL 0.00 - 0.10 [facility] #NRBC 0.00 10^3/uL 0.00 - 0.00 [facility] MANUAL DIFF SEE BELOW [facility] Segmented neutrophils/100 leukocytes in Blood by Manual count 76 % 37 - 80 [facility] %LYMPH 12 % 25 - 40 L [facility] %MONO 10 % 3 - 8 H [facility] %EOS 2 % 0 - 7 [facility] RBC MORPH SEE BELOW [facility] Anisocytosis [Presence] in Blood by Light microscopy 1+ SHAUNA L: NONE SEEN A [facility] Poikilocytosis [Presence] in Blood by Light microscopy 1+ NOR MAL: NONE SEEN A [facility] HYPO 1+ NORMAL: NONE SEEN A [facility] { SICKLE CELL (NORMAL: NONE SEEN ) Ovalocytes [Presence] in Blood by Light microscopy 1+ NORMAL: NONE SEEN A [facility] Stomatocytes [Presence] in Blood by Light microscopy 1+ SHAUNA L: NONE SEEN A [facility] COMMENT: ID Date Data Source [id number] 02/17/2021 09:57:00 PM EDT [facility] Name Value Range Interpretation Code Description Data Maura rce(s) Supporting Document(s) SARS coronavirus 2 RNA panel NEG N [facility] This lab was ordered by [facility] and repor domenico by [facility]. ID Date Data Source [id number] 02/09/2021 04:00:00 PM EDT [facility] Name Value Range Interpretation Code Description Data Maura rce(s) Supporting Document(s) SARS coronavirus 2 RNA [Presence] in Res piratory specimen by DAR with probe detection NEGATIVE [facility] This lab was ordered by [facility] a nd reported by [facility]. ID Date Data Source [id number] 02/02/2021 05:02:00 AM EDT [facility] [address] [place] [address] RESPIRATORY CARE REPORT ==== ---------NAME------- NUMBER SEX AGE ADMIT DISC. XRAY# F/C TYPEHOFFMAN CHANTALE E [id number] F 55 01/31/21 01/31/21 [id number] [facility] E/R DATE OF : 1965 M/R# [id number] PH#: [phone] TR-02 LOCATION: [place] [id number] COMP LETE:02/01/21 02:55 VMT [id number] PHYSICIAN: LAVERNE STUBBS Name Value Range Interpretation Code Description Data Maura rce(s) Supporting Document(s) ID Date Data Source [id number] 02/01/2021 09:29:00 AM EDT [address] [place] [address] PHONE: [phone] FAX: [phone] Name .................. : JUANITO Daniels Acct Number.................. : [id number] ROOM. ................. : Number ................... : [id number] Stay type ............. : E/R Discharge Date......... ... : 01/31/21 Admit Date ......... : 01/31/21 Admit Phys .................... : LAVERNE STUBBS Date of ....... : 1965 Family Phys ................... : SEQUEIRA Phone .................. : [phone] Age ................................ : 55 Film# .................. .:[id number] Sex ................................. : F Unsigned transcriptions are preliminary reports and do not represent a medical or legal document CHEST PORTABLE [id number] COMPLETE:01/31/21 17:41 7568 Reason(s): COPD PO RTABLE CHEST X-RAY: INDICATION: COPD. FINDINGS: There is a right-sided IJ port with the tip overlying the SVC. The right lung is clear. There is extensive air space disease and opacification of the left lung, worse in the apex than the base. Multiple prior exams demonstrate a stable appearance. The cardiac silhouette is obscured. No acute osseous abnormality. IMPRESSION: Chronic air space disease of the left lung. Electronically Reviewed and Signed By Jimmy Ashby M.D. , 02/01/21 09:29, DEY Transcribe Initials: REYES , Transcribe Date: 01/31/21 19:03, Dictation Date: Copy for: EMERGENCY DEPT via [employer] Copy for: 710 MED REC DISCHARGED Page 1 of 1 Name Value Range Interpretation Code Description Data Maura rce(s) Supporting Document(s) ID Date Data Source [id number] 01/31/2021 05:29:00 PM EDT [facility] 1 OrderSheet [facility] Emergency Department [address] [place] [address] Phone #: ext- [phone] 01/31/2021 17:27 Patient: CHANTALE SOLOMON Sex: F : 1965 Age: 55yWEIGHT:80.5 kg (M) HEIGHT:60 inches (S) BMI:34.7ALLERGIES: Penicillins, SeafoodCHIEF COMPLAINT: coughDIAGNOSIS: Hemoptysis, Chronic obstructive lung disease, Malignant tumor of lungLAB ORDERSOrder Description Priority Entered Acknowledged InitialedCBC w Diff STAT 17:41 01/31/2021 17:56 Kidder, Laverne, Maria T Meghann R.N. M.D.;CMP STAT 17:41 01/31/2021 17:56 Kidder, Turrin, Maria T Meghann R.N. M.D.;Lipase STAT 17:41 01/31/2021 17:56 Kidder, Olyarin, Maria T Meghann R.N. M.D.;PT/PTT STAT 17:41 01/31/2021 17:56 Kidder, Olyarin, Maria T Meghann R.N. M.D.;Troponin-T STAT 17:41 01/31/2021 17:56 Kidder, Olayrin, Maria T Meghann R.N. M.D.;BNP STAT 17:41 01/31/2021 17:56 Kidder, Olyarin, Maria T Meghann R.N. M.D.;Lactic Acid STAT 17:42 01/31/2021 17:56 Lakeshia, Olyarin, Maria T Meghann R.N. M.D.;Blood Culture STAT 17:42 01/31/2021 17:56 Kidder,q10m X2 (Sched Turrin, Maria T Meghann R.N.17:42 01/31/2021) Leida;Blood Culture STAT 17:42 01/31/2021 17:56 Kidder,q10m X2 (Sched Turrin, Maria T Meghann R.N.17:52 01/31/2021) Leida;COVID-19 CAH STAT 17:42 01/31/2021 18:09 Pravin(Symptomatic as Turrin, Maria T Leilani R.N.Defined by CDC) Leida;(01/31/2021) (Not 2 OrderSheet [facility] Emergency Department [address] [place] [address] Phone #: ext- [phone] 01/31/2021 17:27 [id number] Sex: F : 1965 Age: 55yFirst Test) (NotHospitalized) (Not) (NotResident inCongregate CareSetting) (NotEmployed inHealthcare Setting)Venous Blood Gas STAT 17:49 01/31/2021 17:56 Laverne Asher Riccardo Jennifer R.NKellen Casarez;DIAGNOSTIC STUDY ORDERSOrder Description Priority Entered Acknowledged InitialedChest Portable 1 STAT 17:41 01/31/2021 17:56 Lakeshia,View (Oxygen? Maria T Galloway.NKellen(Yes)) Leida; Reason for Study: COPD, Cough, HemoptysisMEDICATION/IV/DRIP/FLUID ORDERSOrder Description Priority Entered Acknowledged InitialedNS IV : 150 mL/hr 17:42 01/31/2021 18:14 Laverne Asher Riccardo Jennifer R.N. M.D.;DuoNeb 3 mL X2 17:42 01/31/2021 18:14 Kidder,Doses (Filtered): 6 Laverne, Maria T Zavaleta R.N.mL (3 mL X2 M.D.;Doses)SOLU-Medrol 125 17:42 01/31/2021 18:15 Lakeshia,mg IV X1 Dose: 125 Maria T Galloway R.N.mg (X1) M.D.;Morphine IVP 2 mg 17:43 01/31/2021 18:15 Lakeshia,(HIGH ALERT Maria T Galloway R.N.MEDICATION) M.DKellen;- (Tranexamic Acid 18:10 01/31/2021 Ack'd: 18:15 18:24 Lakeshia,(TXA) 500 mg as Maria T Galloway Jennifer Jennifer R.N.nebulization) MKellenDKellen; R.N.GENERAL ORDERSOrder Description Priority Entered Acknowledged InitialedBlood Pressure 17:41 01/31/2021 17:56 Lakeshia,Monitor Maria T Galloway R.N. 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 M.D.;EKG 17:41 01/31/2021 17:56 Laverne Asher Riccardo Jennifer R.N. M.D.;NPO 17:41 01/31/2021 17:56 Laverne Asher Riccardo Jennifer R.N. M.D.;Obtain Old EKG 17:41 01/31/2021 17:56 Laverne Asher Riccardo Jennifer R.N. M.D.;Obtain Old Records 17:41 01/31/2021 17:56 P Laverne henry Riccardo Jennifer R.N. M.D.;Oxygen (3 L/min) 17:41 01/31/2021 17:56 Lakeshia(NC) (Titrate to O2 Maria T Galloway R.NKellenSat >92%) Leida;Oxygen titrate to 17:41 01/31/2021 17:56 [place]ia,92% Maria T Galloway R.N. M.D.;Pulse oximeter 17:41 01/31/2021 17:56 [place]hia,(Continuous) Maria T Galloway R.N. M.D.;Saline Lock 17:41 01/31/2021 17:56 Laverne Asher Riccardo Jennifer R.N. M.D.;Vitals 17:41 01/31/2021 17:56 Laverne Asher Riccardo Jennifer R.N. M.D.;Transfer: 18:13 01/31/2021 18:24 Laverne Asher Riccardo Jennifer R.N. M.D.;Consult - ER 18:13 01/31/2021 18:24 [place]hia,Physician Maria T Galloway R.N., M.D.;Consult - Speciality 18:13 01/31/2021 18:24 Lakeshia(Pulmonology) Maria T Galloway R.N., M.D.;[Electronically signed by Leilani Costello R.N. (19:01/31/2021)][Electronically signed by Maria T Ross M.D. (19:01/31/2021)] 4 OrderSheet [facility] Emergency Department [address] [place] [address] Phone #: ext- [phone] 01/31/2021 17:27 [id number] Sex: F : 1965 Age: 55y[Electronically locked by Lielani Costello R.N. (19:01/31/2021)] Name Value Range Interpretation Code Description Data Maura rce(s) Supporting Document(s) ID Date Data Source [id number] 01/31/2021 05:29:00 PM EDT [facility] 1 Medication Reconciliation Report [facility] Emergency Department [address] [place] [address] Phone #: ext- [phone] 01/31/2021 17:27 Patient: CHANTALE SOLOMON Sex: F : 1965 Age: 55yWeight: 80.5 kgHeight/Length: 60 in.BMI: 34.7ALLERGIES: Penicillins, SeafoodThe patient's Home Medications are listed below:THE FOLLOWING MEDICATIONS NEED TO BE RECONCILED: Aspirin Oral 81 mg, daily Breo Ellipta Inhalation 1 puff, daily Bystolic Oral (5 mg) 1 tablet, daily dilTIAZem HCl Oral 180 mg, daily, at bedtime Folic Acid Oral (800 mcg) 1 tablet, daily Furosemide Oral 40 mg, daily Levaquin Oral 500 mg, daily Magnesium Oral 1000mg , daily Pantoprazole Sodium Oral 40 mg, daily Potassium Oral 10 meq, 2x a day Spiriva HandiHaler Inhalation 2 puffs, daily Xarelto Oral (10 mg) 1 tablet, dailyThe source(s) of the original Home Medication information:patientThe following Medications were given to the patient in the Emergency Department: 2 Medication Reconciliation Report [facility] Emergency Department [address] [place] [address] Phone #: ext- [phone] 01/31/2021 17:27 Patient: CHANTALE SOLOMON Sex: F : 1965 Age: 55yNS [IV] IV Fluids bolus 0, then 150 mL/hr, administered: 18:10 01/31/2021uoneb [Neb Tx] Neb TX 2 unit dose, administered: 18:01/31/2021olu-Medrol [IVP] IVP 125 mg, administered: 18:10 01/31/2021Morphine [ IVP] IVP 2 mg diluted in NS 10 mL, administered: 18:12 01/31/2021Tranexamic Acid 500mg in 5 cc NS neb Neb TX 1, administered: 18:24 01/31/2021The following Medications were prescribed to the patient:None. Name Value Range Interpretation Code Description Data Maura rce(s) Supporting Document(s) ID Date Data Source [id number] 01/31/2021 05:29:00 PM EDT [facility] 1 Medication Administration Record [facility] Emergency Department [address] [place] [address] Phone #: ext- [phone] 01/31/2021 17:27 Patient: CHANTALE SOLOMON Sex: F : 1965 Age: 55yWeight: 80.5 kgHeight/Length: 60 inBMI: 34.7ALLERGIES: Penicillins, Seafood Date/Time Medication Administered Medication OrderedStart NS [IV] NS IV : 150 mL/hr18:10 01/31/2021 Dose: IV FluidsMeghann Asher R.N. Rate: 150 mL/hr---- Dispensed: 1000 mL bagContinued Upon Transfer Site: #2 left wrist18:30 01/31/2021Leilani Costello R.N.Given DUONEB [NEB TX] DuoNeb 3 mL X2 Doses (Filtered):18:10 01/31/2021 Dose: 2 unit dose Nebulizer Neb TX 6 mL (3 mL X2 Doses)Meghann Asher R.N.----Stop18:25 01/31/2021Leilani Costello R.N.Given SOLU-MEDROL [IVP] SOLU-Medrol 125 mg IV X1 Dose:18:10 01/31/2021 (METHYLPREDNISOLONE SODIUM 125 mg (X1)Meghann Asher R.N. SUCC) Dose: 125 mg IVP Site: #2 left wristGiven MORPHINE [IVP] Morphine IVP 2 mg (HIGH ALERT18:12 01/31/2021 Dose: 2 mg IVP MEDICATION)Meghann Asher R.N. In: NS 10 mL Site: #2 left wristGiven Tranexamic Acid 500mg in 5 cc NS neb - (Tranexamic Acid (TXA) 500 mg18:24 01/31/2021 * as nebulization)Meghann Asher R.N. Dose: 1 * Neb TX----Stop18:30 01/31/2021Leilani Costello R.N. Name Value Range Interpretation Code Description Data Maura rce(s) Supporting Document(s) ID Date Data Source [id number] 01/31/2021 05:29:00 PM EDT [facility] 1 General Instructions [facility] Emergency Department [address] [place] [address] Phone #: ext- [phone] 01/31/2021 17:27 Patient: CHANTALE SOLOMON Sex: F : 1965 Age: 55yMassive hemoptysis.Metastatic, advanced left upper lobe and lower lobe lung cancer.Acute exacerbation of COPD (emphysematous).(Electronically signed by Maria T Galloway M.D. 01/31/2021 19:04) Name Value Range Interpretation Code Description Data Maura rce(s) Supporting Document(s) ID Date Data Source [id number] 01/31/2021 05:29:00 PM EDT [facility] 1 Clinical Report - Nurses [facility] Emergency Department [address] [place] [address] Phone #: ext- [phone] 01/31/2021 17:27 Patient: CHANTALE SOLOMON Sex: F : 1965 Age: 55yTRIAGEArrived by private vehicle. Historian: patient. Accompanied by spouse.Triage time: 17:28 01/31/2021. Acuity: LEVEL 2.Chief Complaint: VOMITING BLOOD.Alert.This started today. Onset. (5 MINUTES AGO). 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 Pt statesDr. Radha feels "something is going on with my lungs like a pneumonia". Pt wears 2LNC chronically andstates "i feel like my lungs are full of fluid". Pt is on Xarelto). 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 --17:36 01/31/21 Meghann Asher R.N.17:28 01/31/21. BP: 90/79. MAP: 82. HR: 121. RR: 24. O2 saturation: 91% on nasal cannula at 3liters/minute. Temp: 98.2 F (temporal). Pain level now: 0/10. --17:36 01/31/21 Meghann Asher R.N.Weight: 80.5 kg measured. Height/Length: 60 inches Per Patient. BMI: 34.7. --17:28 01/31/21 Meghann Asher R.N.MedicationsAspirin Oral 81 mg, daily. Breo Ellipta Inhalation 1 puff, daily. Bystolic Oral (Tablet 5 mg) 1 tablet, daily. dilTIAZem HCl Oral 180 mg, daily at bedtime. Folic Acid Oral (Tablet 800 mcg) 1 tablet, daily. Furosemide Oral 40 mg, daily. Magnesium Oral 1000mg , daily. Pantoprazole Sodium Oral 40 mg, daily. Potassium Oral 10 meq, 2x a day. Spiriva HandiHaler Inhalation 2 puffs, daily. Xarelto Oral (Tablet 10 mg) 1 tablet, daily. --17:32 01/31/21 Meghann Asher R.N. Levaquin Oral 500 mg, daily, started 01/31/2021. --17:32 01/31/21 Meghann Asher R.N.Allergies 2 Clinical Report - Nurses [facility] [place] [address] Phone #: ext- [phone] 01/31/2021 17:27 Patient: CHANTALE SOLOMON Sex: F : 1965 Age: 55y Penicillins. Seafood. --17:32 01/31/21 Meghann Asher R.N. Medication/allergy information source: the patient and patient's previous visit record. --17:36 01/31/21 Meghann Asher R.N. History PAST MEDICAL HX: Immunizations: up-to-date. The patient is post-menopausal. SOCIAL HX: Former smoker. Alcohol use; consumes one glass of wine. (Pt states she had a glass of wine 20 minutes ago). No drug use. No recent travel. No known contact with a sick individual. She was offered HIV testing but declined. Patient education was provided. She was offered hepatitis C testing but declined. Patient education was provided. ( COVID screen negative). She has not traveled outside the [place] Infectious disease exposure: No infectious disease exposure. The patient was not exposed to Coronavirus. Patient is not a known carrier of tuberculosis, hepatitis, HIV, MRSA or VRE. Patient is not a known carrier of CRE. SELF HARM ASSESSMENT: Self harm assessment was performed. The patient answered "no" to the question(s) "Do you have thoughts of harming or killing yourself?" and "Do you have a plan for harming or killing yourself?". ABUSE ASSESSMENT: Abuse assessment. The patient had positive responses to the question(s) "Do you feel safe in your home?". Abuse denied. No suspicion of abuse. No report of abuse. NUTRITIONAL RISK ASSESSMENT: The nutritional risk assessment revealed no deficiencies. FUNCTIONAL ASSESSMENT: Functional assessment: no impairments noted. LEARNING NEEDS ASSESSMENT: The learning needs assessment revealed no barriers. FALL RISK ASSESSMENT: Fall risk assessment completed. No risk factors identified. SKIN INTEGRITY ASSESSMENT: Skin integrity risk assessment completed. No skin integrity risk identified. --17:36 01/31/21 Meghann Asher R.N. Interventions Identification band on patient. --17:36 01/31/21 Meghann Asher R.N. Advanced care plan (FULL CODE). --17:36 01/31/21 Meghann Asher R.N.P HYSICAL ASSESSMENTlate entry - 17:50 01/31/21. To room via wheelchair.GENERAL / NEURO / PSYCH: Alert. Oriented X 4. Appears in no acute distress.HEENT: Mucous membranes are pink. 3 Clinical Report - Nurses [facility] Emergency Department [address] [place] [address] Phone #: ext- [phone] 01/31/2021 17:27 Patient: CHANTALE SOLOMON Sex: F : 1965 Age: 55y RESPIRATORY: Severe respiratory distress. Decreased breath sounds in the left lung base posteriorly. Coarse crackles in the right lung base posteriorly, mid-lung posteriorly and upper lung anteriorly and posteriorly; crackles in the left mid-lung posteriorly and upper lung anteriorly and posteriorly. CVS: Cardiac rhythm: sinus tachycardia. ( pt coughing and bringing up bright red blood in copious amounts). Capillary refill less than 2 seconds. GI / : Abdomen soft and nontender. Bowel sounds within normal limits. SKIN: Skin is warm and dry. --18:06 01/31/21 Leilani Costello R.N.NURSING PROGRESS NOTESlate entry - 17:30 01/31/21. Oxygen increased to 5 liters by nasal cannula; (pt 87 % on pt normal 2LNC).radiation physicist, NIBP monitor and pulse oximeter placed on patient; paper control clerk- Lead II; monitoralarms on; monitor strip added to paper chart. Patient gowned. Reassurance given. Three patientidentifiers checked. Call light placed in reach. Side rails up x 2. Bed placed in lowest position. Brakesof bed on. Patient ready for evaluation- ED physician notified. --17:53 01/31/21 Meghann Asher R.N. 17:35 01/31/2021 Site #1 started via IV in the left antecubital space with an 18g angiocath, with aseptic technique and good blood return; two attempts. Blood drawn: rainbow set and blood bank tube. Labeled in the presence of the patient and sent to the lab. Saline lock flushed with 10 mL saline. --17:54 01/31/21 Meghann Asher R.N. 17:40 01/31/2021 Site #2 started via IV in the left wrist with an 18g angiocath, with aseptic technique and good blood return; one attempt. Blood drawn: cultures x2. Saline lock flushed with 10 mL saline. --17:54 01/31/21 Meghann Asher R.N. EKG time: (late entry - 17:40 01/31/2021). EKG was ordered, performed by a nurse and shown to the ED physician. Original too much artifact and was discarded, 2nd kept. --17:55 01/31/21 Meghann Asher R.N. late entry - 17:45 01/31/21. Portable chest x-ray completed. --17:55 01/31/21 Meghann Asher R.N. 17:55 01/31/21. BP: 118/67. MAP: 84. HR: 115. RR: 35. O2 saturation: 93% on nasal cannula at 5 liters/minute. --17:56 01/31/21 Meghann Asher R.N. 18:10 01/31/2021 Started bag #1 1000 mL IV Fluids NS; at 150 mL/hr via site #2 via IV pump. Allergies verified and confirmed 5 rights. IV patency established. IV site checked: no pain, redness, or swelling. IV flushed thoroughly pre- and post- medication administration. Information reviewed with patient and family including reason for taking this medication, signs of allergic reaction and precautions. Verbalizes understanding. --18:14 01/31/21 Meghann Asher R.N. 18:10 01/31/2021 Duoneb Neb TX Nebulizer 2 unit dose given. Given by the nurse. Allergies verified and confirmed 5 rights. Information reviewed with patient including reason for taking this medication, signs of allergic reaction and precautions. Verbalizes understanding. --18:14 01/31/21 Meghann Asher R.N. 18:10 01/31/2021 Solu-Medrol (methylPREDNISolone Sodium Succ) IVP 125 mg given over 2 minute(s) 4 Clinical Report - Nurses [facility] Emergency Department [address] [place] [address] Phone #: ext- [phone] 01/31/2021 17:27 Patient: CHANTALE SOLOMON Sex: F : 1965 Age: 55yvia site #2. Allergies verified and confirmed 5 rights. IV patency established. IV site checked: no pain,redness, or swelling. IV flushed thoroughly pre- and post-medication administration. IVP given by RN.Information reviewed with patient including reason for taking this medication and signs of allergic reaction.Verbalizes understanding. --18:15 01/31/21 Meghann Asher R.N.18:12 01/31/2021 Morphine IVP 2 mg given diluted in NS 10mL over 4 minute(s) via site #2. Allergiesverified and confirmed 5 rights. IV patency established. IV site checked: no pain, redness, or swelling. IVflushed thoroughly pre- and post- medication administration. IVP given by RN. Information reviewed withpatient including reason for taking this medication, signs of allergic reaction, prec autions and sedativewarning. Verbalizes understanding. --18:15 01/31/21 Meghann Asher R.N.18:15 01/31/21. BP: 108/79. MAP: 88. HR: 108. RR: 24. O2 saturation: 96% on nasal cannula at 5liters/minute. --18:25 01/31/21 Leilani Costello R.N.Critical value relayed by lab (late entry - 18:00 01/31/2021). Critical value received by Damon LOPEZ (lateentry - 18:00 01/31/2021). Lactate level: 5.9. Critical value read back. Verified lab result and patient ID.ED physician notifed of critical value (MD Galloway). --18:32 01/31/21 Meghann Asher R.N.late entry - 18:15 01/31/21. Oxygen administered by nasal cannula at 5 liters. Monitoring of patient inplace. Patient gowned. Reassurance given. Reassessment after medication administered. Respiratorydistress still present but improving. She is calm. Three patient identifiers checked. Call light placed inreach. Side rails up x 2. Bed placed in lowest position. Brakes of bed on. Patient waiting fortransportation. ( Pt calmer and breathing is improving, coughing up blood has slowed down, preparing fortransfer to [facility]). --19:00 01/31/21 Leilani Costello R.N.18:24 01/31/2021 Tranexamic Acid 500mg in 5 cc NS neb * Neb TX 1 --18:24 01/31/21 Meghann Asher R.N.18:25 01/31/2021 Duoneb Neb TX discontinued due to improvement in patient condition. --18:52 01/31/21Leilani Costello R.N.18:30 01/31/2021 Site #[address] upon transfer; patent, no pain and no signs of infection or infiltration.Good blood return present. Flushed with 10 mL saline; flushes easily. --18:48 01/31/21 Leilani Costello R.N.18:30 01/31/2021 Site #[address] upon transfer; patent, no pain and no signs of infection or infiltration.Good blood return present. Flushed with 10 mL saline; flushes easily. --18:48 01/31/21 Leilani Costello R.N.18:30 01/31/2021 IV Fluids NS via IV site #2 Continued: upon transfer at the rate of 150 mL/hr. 900 mLremaining bag #1. IV patency established. IV site checked: no pain, redness, or swelling. IV flushedthoroughly. --18:50 01/31/21 Leilani Costello R.N.18:30 01/31/2021 Tranexamic Acid 500mg in 5 cc NS neb Neb TX discontinued due to improvement in 5 Clinical Report - Nurses [facility] Emergency Department [address] [place] [address] Phone #: ext- [phone] 01/31/2021 17:27 Patient: CHANTALE SOLOMON Sex: F : 1965 Age: 55y patient condition. --18:53 01/31/21 Leilani Costello R.N.DISPOSITION / DISCHARGE late entry - 18:15 01/31/21. Report was given via a phone call. Report included information regarding patient's treatment, allergies and condition including: recent changes and anticipated changes, current vital signs and pending labs. Report included treatment information regarding medications given or pending and home medications. All questions were answered. Report was acknowledged and care was transferred. (Angie FLORES in [facility] ER). --18:21 01/31/21 Leilani Costello R.N. late entry - 18:30 01/31/21. Departure time: late entry - 18:01/31/2021. Condition at departure: improved and stable. Transferred to [facility]. Visit overview, summary of care (CCDA), Emtala forms and Face Sheet provided to EMS and transfer facility via paper and fax. Transported via stretcher by EMS with monitor, IV and O2. --18:43 01/31/21 Leilani Costello R.N. 18:30 01/31/21. BP: 131/76. MAP: 94. HR: 107. RR: 24. O2 saturation: 100%. Temp: 98.3 F (tympanic). Pain level now: 10. Additional comments: 100% on TXA breathing tx, 96% on 5LNC. --18:43 01/31/21 Leilani Costello R.N.Locked/Released at 01/31/2021 19:00 by Leilani Costello R.N. Name Value Range Interpretation Code Description Data Maura rce(s) Supporting Document(s) ID Date Data Source [id number] 01/31/2021 05:29:00 PM EDT [facility] 1 Clinical Report - Physicians/Mid Levels [facility] Emergency Department [address] [place] [address] Phone #: ext- [phone] 01/31/2021 17:27 Patient: CHANTALE SOLOMON Sex: F : 1965 Age: 55y Time Seen: 17:29 01/31/2021; initial patient contact. Arrived- By private vehicle. Historian- patient. Disposition decision: 18:11 01/31/2021.HISTORY OF PRESENT ILLNESS Chief Complaint: COUGH. hemoptysis. This started just prior to arrival 15 minutes ago and is still present. It was abrupt in onset and has been constant. The illness is described as moderate. The patient has had a moderate cough productive of yellow sputum. She has had moderate amounts of frankly bloody sputum. She has had mild difficulty breathing at rest. No chest discomfort or pain, fever, muscle aches or chills. No sore throat, hoarseness, nasal congestion or discharge or sinus pressure. No sinus drainage or ear pain. 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 Additional history - No known contact with a sick individual. Similar symptoms previously. Patient has had similar symptoms occasionally. Worse from previously. ( much worse today). Recent medical care: The patient was seen recently at another facility in the office. ( yesterday, pulmonology at [facility]).REVIEW OF SYSTEMSNo headache, eye discomfort, nausea, vomiting or diarrhea. No abdominal pain, hay fever, pedal edema,calf pain or difficulty with urination. No skin rash, enlarged lymph nodes, joint pain or tick bite. All othersystems reviewed and are negative.PAST HISTORYSee nurses notes. Covid Pneumoniae in . Problems: Cancer [Active]. (Lung, mets to bones) Anemia. Hypertension. COPD - Chronic Obstructive Pulmonary Disease. Pneumonia. Lung Cancer. Pulmonary Embolism. Cancer. 2 Clinical Report - Physicians/Mid Levels [facility] Emergency Department [address] [place] [address] Phone #: azn- [phone] 01/31/2021 17:27 Patient: CHANTALE SOLOMON Sex: F : Age: 55y Atrial Fibrillation. Chronic Back Pain. Heart Disease. DVT - Deep Venous Thrombosis. Additional Surgeries: Appendectomy. Back Surgery. (Rods in t spine, crushed t7 t8) Dilatation Curettage. Foot surgery. Right heel spur. Septoplasty. Septoplasty. Tonsillectomy. Tubal Ligation. Medications: Levaquin Oral 500 mg, daily, started 01/31/2021. Aspirin Oral 81 mg, daily. Breo Ellipta Inhalation 1 puff, daily. Bystolic Oral (Tablet 5 mg) 1 tablet, daily. dilTIAZem HCl Oral 180 mg, daily at bedtime. Folic Acid Oral (Tablet 800 mcg) 1 tablet, daily. Furosemide Oral 40 mg, daily. Magnesium Oral 1000mg , daily. Pantoprazole Sodium Oral 40 mg, daily. Potassium Oral 10 meq, 2x a day. Spiriva HandiHaler Inhalation 2 puffs, daily. Xarelto Oral (Tablet 10 mg) 1 tablet, daily. Allergies: Penicillins. Seafood.SOCIAL HISTORYFormer smoker. Alcohol use; consumes wine daily. No drug use.ADDITIONAL NOTESThe nursing notes have been reviewed with agreement regarding the chief complaint, HPI, ROS, PMH andpatient medications and allergies.PHYSICAL EXAMVital Signs: 01/31/2021 17:28 BP: 90/79. MAP: 82. HR: 121. RR: 24. O2 saturation: 91% on nasal cannulaat 3 liters/minute. Temp: 98.2 F. Pain level now: 0/10. Have been reviewed. Oxygen saturation low.Appearance: Alert. Anxious. Patient in mild distress. 3 Clinical Report - Physicians/Mid Levels [facility] Emergency Department [address] [place] [address] Phone #: ext- [phone] 01/31/2021 17:27 Patient: CHANTALE SOLOMON Sex: F : 1965 Age: 55y Eyes: Eyes normal inspection. ENT: Nose normal. Pharynx normal. Uvula midline. Neck: Normal inspection. Neck supple. CVS: Tachycardia. Normal heart rhythm. Heart sounds normal. Pulses normal. Respiratory: Moderately decreased breath sounds diffusely over both lungs. Expiratory mild bilateral wheezes diffusely. Abdomen: Soft and nontender. No organomegaly. Mildly obese. Back: Normal inspection. Skin: Skin warm and dry. Normal skin color. No rash. Normal skin turgor. Extremities: Extremities exhibit normal ROM. No lower extre mity edema. Neuro: Oriented X 3. No motor deficit.LABS, X-RAYS, AND EKGEKG: No acute process. Tachycardia (122/min). LVH. Normal ST and T waves. NAD. EKGunchanged when compared with prior EKG. (2-). The study has been interpretedcontemporaneously. The EKG appears to be a good tracing. Interpretation time: 17:51 01/31/2021.Chest X-ray: (complete, chronic white out left lung). Views: AP (portable). Technique: good. TheX-rays were interpreted contemporaneously by me. Interpretation time: 17:56 01/31/2021.Laboratory Tests: Laboratory tests have been ordered, with results reviewed and considered in th emedical decision making process. Venous Blood Gas: (SARAH: 01/31/2021 17:38) ( MsgRcvd 01/31/2021 18:00) Final results Test Result Flag Units (Reference) pH V 7.37 (7.32 - 7.43) pCO2 V 55.4 H mm/HG (38.0 - 51.0) pO2 V 50.5 mm/HG (30.0 - 55.0) HCO3 V 31.2 H meq/L (22.0 - 29.0) TCO2 V 32.9 H meq/L (22.0 - 29.0) BASE EXCESS 4.8 H (-2.0 - 2.0) O2 SAT V 84.7 % (40.0 - 85.0) Lactic Acid: (SARAH: 01/31/2021 17:38) ( MsgRcvd 01/31/2021 18:00) Final results Test Result Flag Units (Reference) LACTIC ACID 5.9 HH MMOL/L (0.2 - 2.2) CALL/ READ BACK DAMON IN ED BY: RASHAD DATE/TIME COVID-19 CAH: (SARAH: 01/31/2021 17:55) ( MsgRcvd 01/31/2021 18:42) Final results Test Result Flag Units (Reference) COVID-19 NOT DETECTED COVID-19 REENTER NOT DETECTED { PROCEDURAL CONTROL VALID KIT LOT # _[id number] 01/31/21.DW . KIT EXP DATE _69-99-80 01/31/21.DW . NORMAL RANGE IS NOT DETECTEDNEGATIVE RESULTS SHOULD BE TREATED PRESUMPTIVE AND, IF INCONSISTENT WITHCLINICAL SIGNS AND SYMPTOMS OR NECESSARY FOR PATIENT MANAGEMENT, SHOULD BETESTED WITH DIFFERENT AUTHORIZED OR CLEARED MOLECULAR TESTS. NEGATIVE RESULTSDO NOT PRECLUDE SARS-CoV-2 INFECTION AND SHOULD NOT BE USED THE SOLE BASISFOR PATIENT MANAGEMENT DECISIONS. CBC w Diff: (SARAH: 01/31/2021 17:38) ( MsgRcvd 01/31/2021 18:42) Final results 4 Clinical Report - Physicians/Mid Levels [facility] Emergency Department [address] [place] [address] Phone #: ext- [phone] 01/31/2021 17:27 Patient: CHANTALE SOLOMON Sex: F : 1965 Age: 55y Test Result Flag Uni ts (Reference) CBC W/AUTOMATED DIFF COMPLETE BLOOD COUNT WBC 23.8 H 10/uL (4.2 - 11.0) RBC 2.92 L 10/uL (4.20 - 5.40) HEMOGLOBIN 10.7 L g/dL (12.0 - 16.0) HEMATOCRIT 31.8 L % (37.0 - 47.0) MCV 108.9 H fL (81.0 - 101) MCH 36.6 H pg (27.0 - 34.0) MCHC 33.6 g/dL (31.0 - 36.0) RDW 20.1 H % (11.5 - 14.5) PLATELETS 447 10/uL (150 - 450) MPV 9.0 fL (7.4 - 10.4) NEUT 74.8 % (37.0 - 80.0) LYMPH 10.9 L % (25.0 - 40.0) MONO 7.3 % (3.0 - 8.0) EOS 0.0 % (0.0 - 7.0) BASO 0.8 % (0.0 - 2.5) %IG 6.2 H % (0.0 - 0.0) %NRBC 0.6 H % (0.0 - 0.0) #NEUT 17.83 H 10/uL (2.00 - 6.90) #LYMPH 2.59 10/uL (0.60 - 3.40) #MONO 1.73 H 10/uL (0.00 - 0.90) #EOS 0.01 10/uL (0.00 - 0.70) #BASO 0.18 10/uL (0.00 - 0.20) #IG 1.48 H 10/uL (0.00 - 0.10) #NRBC 0.15 H 10/uL (0.00 - 0.00) MANUAL DIFF SEE BELOW SEGS 75 % (37 - 80) %LYMPH 1 0 L % (25 - 40) %MONO 10 H % (3 - 8) METAMYELOCYTE 2 % MYELOCYTE 3 % RBC MORPH SEE BELOW ANISO 1+ A (NORMAL: NONE MACRO 1+ A (NORMAL: NONE POLYCHROMSIA 1+ A (NORMAL: NONE { SICKLE CELL (NORMAL: NONE SEEN ) PLT EST NORMAL (NORMAL: SHAUNA COMMENT: CMP: (SARAH: 01/31/2021 17:38) ( MsgRcvd 01/31/2021 18:25) Final results Test Result Flag Units (Reference) COMPREHENSIVE METABOLIC PANEL COMPREHENSIVE METABOLIC PANEL SODIUM 136 mEq/L (134 - 153) POTASSIUM 4.2 mEq/L (3.6 - 5.0) CHLORIDE 89 L mEq/L (98 - 107) CO2 27 MEQ/L (22 - 30) GLUCOSE 173 H MG/DL (70 - 99) BUN 22 H MG/DL (7 - 21) CREATININE 1.3 MG/DL (0.7 - 1.5) BUN/CREAT 17 (8 - 27) TOTAL PROTEIN 6.9 G/DL (6.3 - 8.2) ALBUMIN 4.2 G/DL (3.9 - 5.0) 5 Clinical Report - Physicians/Mid Levels [facility] Emergency Department [address] [place] [address] Phone #: ext- [phone] 01/31/2021 17:27 Patient: CHANTALE SOLOMON Sex: F : 1965 Age: 55y GLOBULIN 2.7 GM/DL (2.4 - 3.2) A/G RATIO 1.6 (0.8 - 2.0) CALCIUM 9.3 MG/DL (8.4 - 10.2) TOTAL BILI <0.7 MG/DL (0.2 - 1.3) ALKALINE PHOS 82 U/L (38 - 126) SGOT/AST 27 U/L (5 - 40) SGPT/ALT 51 U/L (7 - 56) ANION GAP 20.0 H mmol/L (8.0 - 16.0) AGE 55 yrs NON-AA GFR 45 mL/min AFR AMER GFR 55 mL/min Male GFR Interprentation 20-49 yrs >60 mL/min Normal 50-59 yrs >56 mL/min Normal 60- 69 yrs >49 mL/min Normal 70-79yrs >42 mL/min Normal 80 and above >35 mL/min Normal Female GFR Interpretation 20-39 yrs >60 mL/min Normal 40-49 yrs >58 mL/min Normal 50-59 yrs > 51 mL/min Normal 60-69 yrs >45 mL/min Normal 70-79 yrs >39 mL/min Normal 80 and above >32 mL/min Normal Lipase: (SARAH: 01/31/2021 17:38) ( [facility] 01/31/2021 18:19) Final results Test Result Flag Units (Reference) LIPASE 29 U/L (13 - 60) PT/PTT: (SARAH: 01/31/2021 17:38) ( MsgRcvd 01/31/2021 18:25) Final results Test Result Flag Units (Reference) PROTIME 21.0 H SECONDS (11.0 - 15.5) INR 1.72 H (0.93 - 1.23) PTT 29.7 SECONDS (24.8 - 36.7) \\BLDo\\INR INTERPRETATION\\BLDx\\ Therapeutic range for Coumadin and related oral anticoagulants. -International Normalized Ratio (INR): 2.0 - 3.0 for Venous Thrombosis, Pulmonary Embolus, Tissue heart valves, Acute NC Atrial Fibrillation, Valvular heart disease and recurrent Systemic Embolism. -International Normalized Ratio (INR): 2.5 - 3.5 for Mechanical Prosthetic valve. Troponin-T: (SARAH: 01/31/2021 17:38) ( [facility] 01/31/[facility]21 18:25) Final results Test Result Flag Units (Reference) TROPONIN T 0.01 NG/ML (0.00 - 0.10) TROPONIN T0.1 ng/ml Recommended as the clinical threshold value forTroponin T. BNP: (SARAH: 01/31/2021 17:38) ( [facility] 01/31/2021 18:25) Final results Test Result Flag Units (Reference) BNP 1304 H PG/ML (0 - 125).PROGRESS AND PROCEDURESCourse of Care: 18:02 01/31/21. case discussed w Dr. Dominguez, classified copy control clerk at [facility], who advised tosend to ER STAT; waiting for ER to call back; pt calmer, doing better; coughed about 250 ml of blood so far 18:10 01/31/21. Dr. Torrse, ER MD, called back, case discussed, she was aware of pt per Dr. Dominguez, recommends also TXA nebulization, will do 6 Clinical Report - Physicians/Mid Levels [facility] Emergency Department [address] [place] [address] Phone #: ext- [phone] 01/31/2021 17:27 Patient: CHANTALE SOLOMON Sex: F : 1965 Age: 55y 18:12 01/31/21. VBG and lactic in and reviewed, rest pending 18:28 01/31/21. CMP, BNP, troponin results in; TXA nebulizer going (500 mg in 10 ml), EMT's here for transport to [facility], pt so much better, no hemoptysis; Hb/Ht still pending 18:42 01/31/21. pt doing markedly better, TXA nbl running, leaving any minute, CBC back, WBC high, H/H 10.7/31.8. Critical care performed (60 minutes). Time is exclusive of separately billable procedures. Time includes: direct patient care, patient reassessment, coordination of patient care, interpretation of data (laboratory data, chest xrays and prior electrocardiograms), medical consultation and documentation of patient care- see progress notes. Patient and spouse counseled in person regarding the patient's stable condition, test results, diagnosis and need for transfer. Patient and spouse agrees with plan of care. Disposition: Benefits, risks and alternatives to transfer explained to patient and spouse. Transferred to [facility]. Summary of care (CCDA) provided to transport team, patient and transfer facility via paper. Condition: stable and critical.CLINICAL IMPRESSION Massive hemoptysis. Metastatic, advanced left upper lobe and lower lobe lung cancer. Acute exacerbation of COPD (emphysematous).(Electronically signed by Maria T Galloway M.D. 01/31/2021 19:04) Name Value Range Interpretation Code Description Data Maura rce(s) Supporting Document(s) ID Date Data Source [id number] 02/06/2021 06:45:00 AM EDT [facility] Name Value Range Interpretation Code Description Data Maura rce(s) Supporting Document(s) Bacteria identified in Blood by Culture [facility] NO GROWTH AFTER 5 DAYS ID Date Data Source [id number] 02/11/2021 06:15:00 AM EDT [facility] Name Value Range Interpretation Code Description Data Maura rce(s) Supporting Document(s) CULTURE BLOOD [facility] _CULTURE BLOOD_ [place] [address] CLIA# [id number] SEE SCANNED REPORT{ PRELIM ID Date Data Source [id number] 01/31/2021 05:55:00 PM EDT [facility] Name Value Range Interpretation Code Description Data Maura rce(s) Supporting Document(s) COVID19 Case rprt NOT DETECTED [facility] This lab was ordered by [facility] and reported by [facility]. ID Date Data Source [id number] 01/31/2021 06:42:00 PM EDT [facility] NOT DETECTEDNOT DETECTED{ PROC EDURAL CONTROL VALID KIT LOT # _[id number] 01/31/21.1841.DW . KIT EXP DATE _73-12-15 01/31/21.DW . NORMAL RANGE IS NOT DETECTEDNEGATIVE RESULTS [...] rce(s) Supporting Document(s) ID Date Data Source [id number] 02/11/2021 06:14:00 AM EDT [facility] Name Value Range Interpretation Code Description Data Maura rce(s) Supporting Document(s) CULTURE BLOOD [facility] sp[facility] _CULTURE BLOOD_ [place] [address] IA# [id number] SEE SCANNED REPORT{ PRELIM ID Date Data Source [id number] 01/31/2021 06:41:00 PM EDT [facility] Name Value Range Interpretation Code Description Data Maura rce(s) Supporting Document(s) CBC W/AUTOMATED DIFF [facility] COMPLETE BLOOD COUNT Leukocytes [#/volume] in Blood by Automated count 23.8 10^3/uL 4.2 - 11.0 H [facility] Erythrocytes [#/volume] in Blood by Automated count 2.92 10^6/uL 4. 20 - 5.40 L [facility] Hemoglobin [Mass/volume] in Blood 10.7 g/dL 12.0 - 16.0 L [facility] Hematocrit [Volume Fraction] of Blood by Automated count 31.8 % 3 7.0 - 47.0 L [facility] Erythrocyte mean corpuscular volume [Entitic volume] b y Automated count 108.9 fL 81.0 - 101 H [facility] Erythrocyte mean corpuscular hemoglobin [Entitic mass] by Automated count 36.6 pg 27.0 - 34.0 H [facility] Erythrocyte mean corpuscular hemoglobin concentration [Mass/volume] by Automated count 33.6 g/dL 31.0 - 36.0 [facility] Erythrocyte distribution width [Ratio] by Automated count 20.1 % 11.5 - 14.5 H [facility] Platelets [#/volume] in Blood by Automated count 447 10^3/uL 150 - 45 0 [facility] Platelet mean volume [Entitic volume] in Blood by Automated count 9.0 fL 7.4 - 10.4 [facility] Neutrophils/100 leukocytes in Blood by Automated count 74.8 % 37. 0 - 80.0 [facility] Lymphocytes/100 leukocytes in Blood by Manual count 10.9 % 25.0 - 40.0 L [facility] Monocytes/100 leukocytes in Blood by Automated count 7.3 % 3.0 - 8.0 [facility] Eosinophils/100 leukocytes in Blood by Automated count 0.0 % 0.0 - 7.0 [facility] Basophils/100 leukocytes in Blood by Automated count 0.8 % 0.0 - 2.5 [facility] %IG 6.2 % 0.0 - 0.0 H [facility] al %NRBC 0.6 % 0.0 - 0.0 H [facility] al Neutrophils [#/volume] in Blood by Automated count 17.83 10^3/uL 2. 00 - 6.90 H [facility] Lymphocytes [#/volume] in Blood by Automated count 2.59 10^3/uL 0.60 - 3.40 [facility] Monocytes [#/volume] in Blood by Automated count 1.73 10^3/uL 0.00 - 0.90 H [facility] Eosinophils [#/volume] in Blood by Automated count 0.01 10^3/uL 0.00 - 0.70 [facility] Basophils [#/volume] in Blood by Automated count 0.18 10^3/uL 0.00 - 0.20 [facility] #IG 1.48 10^3/uL 0.00 - 0.10 H [facility] #NRBC 0.15 10^3/uL 0.00 - 0.00 H [facility] MANUAL DIFF SEE BELOW [facility] ital Segmented neutrophils/100 leukocytes in Blood by Manual count 75 % 37 - 80 [facility] %LYMPH 10 % 25 - 40 L [facility] al %MONO 10 % 3 - 8 H [facility] al Metamyelocytes/100 leukocytes in Blood by Manual count 2 % [facility] Myelocytes/100 leukocytes in Blood by Manual count 3 % [facility] RBC MORPH SEE BELOW [facility] al Anisocytosis [Presence] in Blood by Light microscopy 1+ SHAUNA L: NONE SEEN A [facility] Macrocytes [Presence] in Blood by Light microscopy 1+ NORMAL: NONE SEEN A [facility] Polychromasia [Presence] in Blood by Light microscopy 1+ NORM AL: NONE SEEN A [facility] { SICKLE CELL (NORMAL: NONE SEEN ) Platelet adequacy [Presence] in Blood by Light microscopy NORMAL NORMAL: NORMAL [facility] COMMENT: ID Date Data Source [id number] 01/31/2021 06:25:00 PM EDT [facility] Name Value Range Interpretation Code Description Data Maura rce(s) Supporting Document(s) COMPREHENSIVE METABOLIC PANEL [facility] COMPREHENSIVE METABOLIC PANEL Sodium [Moles/volume] in Serum or Plasma 136 mEq/L 134 - 153 [facility] Potassium [Moles/volume] in Serum or Plasma 4.2 mEq/L 3.6 - 5.0 [facility] Chloride [Moles/volume] in Serum or Plasma 89 mEq/L 98 - 107 L [facility] Carbon dioxide, total [Moles/volume] in Serum or Plasma 27 MEQ/L 22 - 30 [facility] Glucose [Mass/volume] in Serum or Plasma 173 MG/DL 70 - 99 H [facility] BUN 22 MG/DL 7 - [facility] Creatinine [Mass/volume] in Serum or Plasma 1.3 MG/DL 0.7 - 1.5 [facility] BUN/CREAT 17 8 - 27 [facility] Protein [Mass/volume] in Serum or Plasma 6.9 G/DL 6.3 - 8.2 [facility] Albumin [Mass/volume] in Serum or Plasma 4.2 G/DL 3.9 - 5.0 [facility] Globulin [Mass/volume] in Serum by calculation 2.7 GM/DL 2.4 - 3.2 [facility] A/G RATIO 1.6 0.8 - 2.0 [facility] Calcium [Mass/volume] in Serum or Plasma 9.3 MG/DL 8.4 - 10.2 [facility] Bilirubin.total [Mass/volume] in Serum or Plasma <0.7 MG/DL 0.2 - 1.3 [facility] Alkaline phosphatase [Enzymatic activity/volume] in Serum or Plasma 82 U/L 38 - 126 [facility] Aspartate aminotransferase [Enzymatic activity/volume] in Serum or Plasma 27 U/L 5 - 40 [facility] Alanine aminotransferase [Enzymatic activity/volume] in Seru m or Plasma 51 U/L 7 - 56 [facility] Anion gap 3 in Serum or Plasma 20.0 mmol/L 8.0 - 16.0 H [facility] AGE 55 yrs [facility] al NON-AA GFR 45 mL/min [facility] AFR AMER GFR 55 mL/min [facility] Male GFR In [...] >32 mL/min Normal ID Date Data Source [id number] 01/31/2021 06:25:00 PM EDT [facility] Name Value Range Interpretation Code Description Data Maura rce(s) Supporting Document(s) BNP 1304 PG/ML 0 - 125 H [facility] ID Date Data Source [id number] 01/31/2021 06:25:00 PM EDT [facility] Name Value Range Interpretation Code Description Data Maura rce(s) Supporting Document(s) TROPONIN T 0.01 NG/ML 0.00 - 0.10 [facility] TROPONIN T0.1 ng/ml Recommended as the c linical threshold value forTroponin T. ID Date Data Source [id number] 01/31/2021 06:25:00 PM EDT [facility] Name Value Range Interpretation Code Description Data Maura rce(s) Supporting Document(s) Prothrombin time (PT) 21.0 SECONDS 11.0 - 15.5 H [facility] INR in Platelet poor plasma by Coagulation assay 1.72 0.93 - 1. 23 H [facility] aPTT in Blood by Coagulation assay 29.7 SECONDS 24.8 - 36.7 [facility] \\BLDo\\INR INTERPRETATION\\BLDx\\ Therapeutic range for Coumadin and related oral anticoagulants. - International Normalized Ratio (INR): 2.0 - 3.0 for Venous Thrombosis, Pulmonary Embolus, Tissue heart valves, Acute NC Atrial Fibrillation, Valvular heart disease and recurrent Systemic Embolism. - International Normalized Ratio (INR): 2.5 - 3.5 for Mechanical Prosthetic valve. ID Date Data Source [id number] 01/31/2021 06:19:00 PM EDT [facility] Name Value Range Interpretation Code Description Data Maura rce(s) Supporting Document(s) Lipase [Enzymatic activity/volume] in Serum or Plasma 29 U/L 13 - 60 [facility] ID Date Data Source [id number] 01/31/2021 06:00:00 PM T [facility] Name Value Range Interpretation Code Description Data Maura rce(s) Supporting Document(s) pH of Serum or Plasma 7.37 7.32 - 7.43 [facility] pCO2 V 55.4 mm/HG 38.0 - 51.0 H [facility] pO2 V 50.5 mm/HG 30.0 - 55.0 [facility] Bicarbonate [Moles/volume] in Venous blood 31.2 meq/L 22.0 - 29.0 H [facility] TCO2 V 32.9 meq/L 22.0 - 29.0 H [facility] Base excess in Blood by calculation 4.8 -2.0 - 2.0 H [facility] O2 SAT V 84.7 % 40.0 - 85.0 [facility] ID Date Data Source [id number] 01/31/2021 05:59:00 PM EDT [facility] Name Value Range Interpretation Code Description Data Maura rce(s) Supporting Document(s) Lactate [Moles/volume] in Serum or Plasma 5.9 MMOL/L 0.2 - 2.2 [facility] CALL/ READ BACK DAMON IN ED [facility] BY: RASHAD [facility] DATE/TIME 682411/1800 [facility] ID Date Data Source [id number] 01/30/2021 01:11:00 PM EDT [facility] ([facility], ) Name Value Range Interpretation Code Description Data Maura rce(s) Supporting Document(s) Gram Stain Laboratory test result Normal (applies to non-n umeric results) [facility] ([facility], ) QUALITY: GOOD FEW EPITHELIAL CELLS MANY WBCS FEW GRAM POSITIVE COCCI IN PAIRS AND CLUSTERS FEW GRAM NEGATIVE COCCOBACILLUS Sputum Culture Laboratory test result Normal (applies to non-numeric results) [facility] ([facility], ) <content>FULL REPORT IN LAB NOTES ([facility] a nd [facility]).</content>
<content>NORMAL JEROME PRESENT</content>
<content></content>
<content>ORGANISM 1: PSEUDOMONAS AERUGINOSA</content>
<content></content>
<content>QUANTITY OF GROWTH FEW</content>
<content></content>
<content></content>
<content></con tent>
<content>ORGANISM 1: PSEUDOMONAS AERUGINOSA</content>
<content></content>
<content>PSEUDOMONAS AERUGINOSA: REACTION</content>
<content>GENTAMICIN IV 80mg q8h <=1 S</content>
<content>CEFAZOLIN IV 1gm q8h >=64 R</content>
<content>LEVOFLOXACIN IV 500mg qd 0.5 S</content>
<content> LEVOFLOXACIN PO 250mg qd 0.5 S</content>
<content>LEVOFLOXACIN PO 500mg qd 0.5 S</content>
<content>TOBRAMYCIN IV 80mg q8h <=1 S</content>
<content>CEFTAZIDIME IV 1gm q8h 4 S</content>
<content>PIPERACILLIN/TAZOBACTAM IV 2.25 gm q6h 8 S</content>
<content>MEROPENEM IV 1 gm q8h 0.5 S</content>
<content>MEROPENEM IV 500 mg q8h 0.5 S</content>
<content>TIGECYCLINE IV 50mg q12h >=8 R</content>
<content>CEFEPIME IV 1 gm q12h 2 S</content>
<content>CEFEPIME IV 2 gm q12h 2 S</content>
<content></content> ID Date Data Source [id number] 01/30/2021 01:11:00 PM EDT [facility] ([facility]) Name Value Range Interpretation Code Description Data Maura rce(s) Supporting Document(s) Bacteria identified in Sputum by Aerobe culture Laboratory test resul t [facility] ([facility]) ID Date Data Source [id number] 01/30/2021 12:55:00 PM EDT [facility] ([facility]) Name Value Range Interpretation Code Description Data Maura rce(s) Supporting Document(s) FVC-Pre 0.89 L [facility] ([facility]) FVC-Pred 2.96 L [facility] ([facility]) PDFReport Laboratory test result [facility] ([facility]) Fev1-Pred 2.32 L [facility] ([facility]) FVC-%Pred-Pre 30 L [facility] ([facility]) FVC-LLN 2.35 L [facility] ([facility]) Fev1-%Pred-Pre 31 L [facility] ([facility]) Fev1-LLN 1.80 L [facility] ([facility]) Fev1-Pre 0.73 L [facility] ([facility], ) Fev6-LLN 2.27 L [facility] ([facility], ) Fev6-%Pred-Pre 31 L [facility] ([facility], ) Fev6-Pred 2.87 L [facility] ([facility], ) Fev6-Pre 0.89 L [facility] ([facility], ) Gre1aox-%Pred-Pre 103 % [facility] ([facility], ) Ory9ukk-Ryuf 79 % [facility] ([facility], ) Rkm9oof-Ckw 82 % [facility] ([facility]) Oth5tbi-Guic 97 % [facility] ([facility]) Drp6lgi-Dix 100 % [facility] ([facility]) Bsx7nok-WXY 69 % [facility] ([facility]) FEFMax-Pre 2.11 L/E/sec [facility] ([facility]) FEFMax-Pred 5.94 L/E/sec [facility] ([facility], ) Ikc7vwg-%Pred-Pre 103 % [facility] ([facility]) FEFMax-LLN 4.44 L/E/sec [facility] ([facility]) Inq7744-Fxks 2.34 L/E/sec [facility] ([facility], ) FEFMax-%Pred-Pre 35 L/E/sec [facility] ([facility]) Rti2075-Ppa 0.74 L/E/sec [facility] ([facility], ) Uyl2098-PDU 1.25 L/E/sec [facility] ([facility], ) Lyo4931-%Pred-Pre 31 L/E/sec [facility] ([facility]) ExpTime-Pre 5.94 sec [facility] ([facility]) Opi8uaz3-Awy 82 % [facility] ([facility]) Jng0evh5-%Pred-Pre 100 % [facility] ([facility]) Iqb1alh6-Aqed 82 % [facility] ([facility]) Fri6qel0-QEO 73 % [facility] ([facility]) ID Date Data Source [id number] 01/17/2021 01:20:00 PM EDT [facility] ([facility]) Name Value Range Interpretation Code Description Data Maura rce(s) Supporting Document(s) Gram Stain Laboratory test result Normal (applies to non-n umeric results) [facility] ([facility]) QUALITY: GOOD MANY WBCS FEW EPITHELIAL CELLS MODERATE GRAM POSITIVE COCCI IN PAIRS, CHAINS AND CLUSTERS FEW YEAST LIKE ORGANISM WITH PSEUDOHYPHAE FEW GRAM NEGATIVE RODS Sputum Culture Laboratory test result Normal (applies to non-numeric results) [facility] ([facility]) FULL REPORT IN LAB NOTES ([facility] NORMAL JEROME PRESENT ORGANISM 1: YEAST LIKE ORGANISM QUANTITY OF GROWTH FEW ORGANISM 1: YEAST LIKE ORGANISM ID Date Data Source [id number] 01/17/2021 01:20:00 PM EDT [facility] ([facility]) Name Value Range Interpretation Code Description Data Maura rce(s) Supporting Document(s) Bacteria identified in Sputum by Aerobe culture Laboratory test result Normal (applies to non-numeric results) [facility] ([facility]) QUALITY: GOOD MANY WBCS FEW EPITHELIAL CELLS MODERATE GRAM POSITIVE COCCI IN PAIRS, CHAINS AND CLUSTERS FEW YEAST LIKE ORGANISM WITH PSEUDOHYPHAE FEW GRAM NEGATIVE RODS ID Date Data Source [id number] 12/22/2020 10:24:00 [place] [address] PROGRESS NOTENAME: JUANITO Daniels ROOM#: [id number] OF : 1965 MR#: [id number] DATE: 12/20/20 OF SERVICE: 12/22/2020UBJECTIVE:This patient has pneumonia left lung. She is feeling better. She has previous history of COVIDpositive. We did another PCR, which is not back. Patient denied any chest pain. Her cough, dyspnea,and wheezing is better. ROS: Does not notice any dizziness, syncope, diplopia, headache. Noorthopnea or paroxysmal nocturnal dyspnea. No bowel disturbance. No urinary problem. No ankleedema.OBJECTIVE:On exam, moderately built. Blood pressure was 140/80. Head is normal. Heart regular sinus rhythm.Lungs have rhonchi at the bases. Abdomen soft. Extremities normal.LABORATORY DATA:WBC 3.9, RBC 2.64, hemoglobin 9, hematocrit 26.6, MCV 100.8, MCH 34.1, MCHC 33.8, RDW14.1, platelets 221, MPV 8.9. Sodium 133, potassium 5, chloride 98, CO2 30, glucose 147, BUN 19,creatinine 0.8, BUN/creatinine ratio 24, total protein 6.1, albumin 3.2, globulin 2.9, A/G ratio 1.1,calcium 8.5.ASSESSMENT/PLAN:The patient has the following issues:1. Pneumonia left lung, is getting better. Plan to continue Rocephin 1 gram daily and Zithromax 500 mg daily IV.2. History of COVID a month ago. Rapid COVID test was negative, we are waiting on PCR.3. Hemoglobin 9. Patient's iron level was 50, low reference is 42. I will go ahead and give Venofer IV because she has comorbidities.4. Serum potassium 5. We will monitor that closely and repeat that tomorrow. We will start oral potassium.DD: Osmel Alvarez MD, PC 12/22/20 09:07DT: SSR 12/22/20 10:23DS: Osmel Alvarez MD, PC 12/27/20 09:34 [address] [place] [address] PROGRESS NOTENAME: JUANITO Daniels ROOM#: [id number] OF : 1965 MR#: [id number] DATE: 12/20/20 2 Name Value Range Interpretation Code Description Data Maura rce(s) Supporting Document(s) ID Date Data Source [id number] 12/21/2020 10:05:00 [place] [address] PROGRESS NOTENAME: JUANITO Dnaiels ROOM#: [id number] OF : 1965 MR#: [id number] DATE: 12/20/20 OF SERVICE: 12/21/2020UBJECTIVE:This patient has pneumonia left lung, she has carcinoma of the left lung. She is wheezing. Denies anychest pain. Denies any fever. ROS: Does not notice any syncope, diplopia, headache. No orthopnea orparoxysmal nocturnal dyspnea. No chills or fever. No bowel disturbance. No ankle edema.OBJECTIVE:On exam, moderately built. Blood pressure 100/70. Head is normal. Heart rate is 70. Lungs haverhonchi at the bases. Abdomen soft. Extremities normal.LABORATORY DATA:WBC 4.2, RBC 2.73, hemoglobin 9.4, hematocrit 27.6, MCV 101.1, MCH 34.4, MCHC 34.1, RDW14.3, platelets 239, MPV 8.8. Sodium 135, potassium 4.9, chloride 98, CO2 29, glucose 144, BUN 15,creatinine 0.8, BUN/creatinine ratio 19, total protein 5.6, albumin 3.2, globulin 2.4, A/G ratio 1.3,calcium 8.7.ASSESSMENT/PLAN:The patient has the following issues:1. Pneumonia left lung. Plan is to continue the Zithromax and the Rocephin 1 gram daily IV. Continue handheld DuoNeb treat ment. Also plan to give Solu-Medrol 125 mg IV for four dosages. We will monitor blood sugar closely, we do have check blood sugar three times a day.2. She is anemic. We will do an anemia panel and give IV Venofer if indicated, if iron is low, and Procrit 20,000 units subcu.DD: Osmel Alvarez MD, PC 12/21/20 09:12DT: SSR 12/21/20 10:05DS: Osmel Alvarez MD, PC 12/27/20 09:34 1 Name Value Range Interpretation Code Description Data Maura rce(s) Supporting Document(s) ID Date Data Source [id number] 12/23/2020 12:19:00 [place] [address] HISTORY AND PHYSICALNAME: JUANITO Daniels ROOM#: [id number] OF : 1965 MR#: [id number] PHYS: Osmel Alvarez MD, [facility] [id number] DATE: 12/20/20CHIEF COMPLAINT: This is a 55-year-old white female who presents with cough, dyspnea, wheezing.HISTORY OF PRESENT ILLNESS:This patient has not been doing well for the last 3-4 days. She has a cough, dyspnea, wheezing, intermittentchills and fever. A few days ago, she was admitted here for COVID. She was treated and sent home. She isalmost more than a month status post COVID. The patient complains of tiredness, fatigue and dyspnea onexertion. She has a cough with mucopurelent expectoration. Patient has known history of carcinoma of the leftlung, history of PE. She [facility] [place]. Patient hasintermittent chills and fever. She has a cough with mucopurelent expectoration. There is no orthopnea orparoxysmal nocturnal dyspnea. No bowel disturbance. No urinary problem. No ankle edema. There is nosyncope. She is dizzy when she walks.MEDICATIONS: 1. Breo Ellipta daily 2. Bystolic 5 mg daily 3. Diltiazem 180 mg daily 4. Furosemide 20 mg daily 5. Meloxicam 7.5 mg as needed 6. Protonix 40 mg daily 7. Potassium dailyPAST MEDICAL HISTORY:The patient had pulmonary emboli. She was admitted to [facility] on 08/05/20 for atrialfibrillation and carcinoma of the left lung. She gets chemotherapy. She has history of COPD, history ofthrombocytopenia, anemia, history of hypertension. She was admitted also previously in February for pneumoniaand a month ago for COVID.PAST SURGICAL HISTORY:Patient had appendectomy, lumbar disc surgery on the dorsal spine, tonsillectomy, tubal ligation, IV port site.She has had multiple admissions for pneumonia and dyspnea.PERSONAL HISTORY:She quit smoking 2 years ago. Before that, she was smoking one pack.FAMILY HISTORY:Father of a stroke, had diabetes. Mother is alive. She has COPD.ALLERGIES: [address] [place] [address] HISTORY AND PHYSICALNAME: JUANITO Daniels ROOM#: [id number] OF : 1965 MR#: [id number] PHYS: Osmel Alvarez MD, PC [facility] [id number] DATE: 12/20/20PENICILLIN and SEAFOOD.PHYSICAL EXAMINATION:GENERAL: Moderately-built.VITAL SIGNS: Blood pressure is 140/80. Pulse is 80. Temperature 98. Respirations 22. O2 saturationis 89%.HEENT: Head is normal. Pupils and fundus reveal grade 2 changes. Mouth normal. Tongue dry.NECK: Supple. No lymphadenopathy. Thyroid not enlarged. Neck veins are not distended. No carotidbruits.CHEST: Symmetrical.HEART: Regular sinus rhythm. No murmur or gallop.LUNGS: Vesicular breathing with prolonged expiration. Scattered rhonchi in the lungs.ABDOMEN: Soft and nontender. No masses. Liver and spleen are not enlarged.EXTREMITIES: Normal. Peripheral pulses are palpable.NEUROLOGICAL: Normal.LABORATORY DATA:Patient's lab tests showed that white count was 7.7, hemoglobin 11.4, sodium 135, potassium 5, BUN 21,creatinine 0.9. X-ray of the chest showed pneumonia in the left lung.IMPRESSION: 1. Patient with pneumonia in the left lung. 2. Status post COVID, resolved. 3. History of COPD. 4. History of cancer to the left lung status post chemotherapy 2 weeks ago. 5. History of pulmonary emboli. 6. History of hypertension. 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 8. History of anemia. 9. History of thrombocytopenia.PLAN:This patient will be admitted and will be given IV antibiotics. A COVID PCR is also being done. IVZithromax and IV Rocephin are being given.DD: Osmel Alvarez MD, PC 12/20/20 16:20DT: SONYA 12/21/20 03:21DS: Osmel Alvarez MD, PC 12/27/20 09:34 2 [place] [address] HISTORY AND PHYSICALNAME: JUANITO Daniels ROOM#: [id number] OF : 1965 MR#: [id number] PHYS: Osmel Alvarez MD, PC DATE: 12/20/20 3 Name Value Range Interpretation Code Description Data Maura rce(s) Supporting Document(s) ID Date Data Source [id number] 12/23/2020 12:37:00 [place] [address] DISCHARGE SUMMARYNAME: JUANITO Daniels ROOM#: [id number] OF : 1965 MR#: [id number] PHYS: Osmel Alvarez MD, PC DATE: 12/20/20 DISCHARGED: 12/23/20REASON FOR ADMISSION: This is a 55-year-old white female who presented with cough,dyspnea, wheezing.HISTORY OF PRESENT ILLNESS:This patient has known history of COVID 6 days ago and now is PCR negative. She came in with pneumoniain the left lower lobe. She was treated with Zithromax 500 mg IV and Rocephin 1 gram daily IV. The historyand physical is recorded. On examination, blood pressure is 130/80. Head is normal. Heart rate is 70. Lungswith scattered rhonchi at the bases. Abdomen is soft. Diminished air entry in the left lung. Abdomen is soft.Extremities are normal.LABORATORY & X-RAY DATA:Lab tests showed with initial EKG showed regular sinus rhythm. Initial hemoglobin was 10.3, whitecount 6000. BNP was 755. Sodium was 133, potassium was 4.4, BUN 14, creatinine was 0.9. CT scanof the chest was done which showed pneumonia in the left lower lobe. Repeat CT scan of the chest on12/23 showed complete opacif ication of the left lung. EKG was regular sinus rhythm. On 12/21, whitecount was 4.1, hemoglobin was 9.4. Sodium was 135, potassium 4.9, BUN 14, creatinine was 0.8. On12/22, hemoglobin was 9. Magnesium was 1.8. On 12/22, sodium was 138, BUN was 19, creatinine 0.8,magnesium was 1.7. On 12/23, sodium was 151, potassium was 4.8, BUN was 23, creatinine was 0.8.Hemoglobin was 9.4.HOSPITAL COURSE:The patient was treated with handheld DuoNeb treatments and Solu-Medrol 125 mg b.i.d. for 4 doses,Rocephin 1 gram daily IV and Zithromax 500 mg daily IV were given. The patient clinically gotbetter. She was afebrile. White count was not elevated. Her saturation was 98% on 2 liters of oxygen.This patient has known history of pulmonary emboli and has been taking Xarelto. Patient goes to thepulmonologist, Dr. Parnell. It was decided that since she now has complete opacification of the left lung,it could be an effect of the carcinoma. The left lung could be inspissated mucus plugs, so it wasdecided [facility]. I spoke with the hospitalist and the patient will betransferred there for further care and the implementation specialist payroll will be consulted.FINAL DIAGNOSIS:1. Pneumonia left lung.2. Collapsed left lung.3. Possible mucus plugs causing collapse.4. Carcinoma of the left lung. The possibility of collapse of the left lung from carcinoma cannot be ruled out.5. History of pulmonary emboli. 1 [place] [address] DISCHARGE SUMMARYNAME: JUANITO Daniels ROOM#: [id number] OF : 1965 MR#: [id number] PHYS: Osmel Alvarez MD, DATE: 12/20/20 DISCHARGED: 12/23/20 6. History of hypertension. 7. History of COPD. 8. History of anemia. 9. History of thrombocytopenia.DD: Osmel Alvarez MD, 12/23/20 11:24DT: SONYA 12/23/20 12:19DS: Osmel Alvarez MD, PC 12/27/20 09:34 2 Name Value Range Interpretation Code Description Data Maura rce(s) Supporting Document(s) ID Date Data Source [id number] 12/25/2020 01:55:00 [place] [address] PHONE: [phone] FAX: [phone] Name .................. : JUANITO Daniels Acct Number.................. : [id number] ROOM. ................. : CCU4 MR Number ................... : [id number] Stay type ............. : I/P Discharge Date......... ... : 12/23/20 Admit Date ......... : 12/20/20 Admit Phys .................... : KIM VANESSA Date of ....... : 1965 Family Phys ................... : [employer] Phone .................. : [phone] Age ................................ : 55 Film# .................. .:[id number] Sex ................................. : F Unsigned transcriptions are preliminary reports and do not represent a medical or legal document CHEST PORTABLE [id number] COMPLETE:12/23/20 09:09 [facility] 1939 (REASON FOR CHEST: PNEUMONIA PORTABLE CHEST X-RAY: INDICATION: Pneumonia. FINDINGS: The right lung is clear. There is unchanged complete opacified appearance of the left lung. The cardiac silhouette is obscured. No acute osseous abnormality. The patient is status post thoracic spine fusion. There is a right IJ port with the tip overlying the SVC. IMPRESSION: No significant change in complete opacification of the left lung. Electronically Reviewed and Signed By Jimmy Ashby M.D. , 12/25/20 13:55, [place] Transcribe Initials: REYES , Transcribe Date: 12/23/20 12:54, Dictation Date: Copy for: 710 MED REC DISCHARGED Page 1 of 1 Name Value Range Interpretation Code Description Data Maura rce(s) Supporting Document(s) ID Date Data Source [id number] 12/20/2020 10:53:00 AM EST [facility] 1 OrderSheet [facility] Emergency Department [address] [place] [address] Phone #: ext- [phone] 12/20/2020 10:48 Patient: CHANTALE SOLOMON Sex: F : 1965 Age: 55yWEIGHT:80.2 kg (M) HEIGHT:60 inches (S) BMI:34.5ALLERGIES: Penicillins, SeafoodCHIEF COMPLAINT: dyspnea, CHF, wheezingDIAGNOSIS: PneumoniaLAB ORDERSOrder Description Priority Entered Acknowledged InitialedCBC w Diff STAT 11:12/20/2020 11:34 Chau Bower R.N.;BNP STAT 11:12/20/2020 11:34 Chau BowerNKellen LOPEZ;CMP STAT 11:12/20/2020 11:34 Chau Bower R.N.;D-Dimer STAT 11:12/20/2020 11:34 Chau Bower R.N.;Influenza Nasal A B STAT 11:12/20/2020 11:53 Chau Bower R.N.;Lactic Acid STAT 11:12/20/2020 11:34 Chau Bower R.N.;Troponin-T STAT 11:12/20/2020 11:34 Chau Bower R.N. PA;Urinalysis (Clean STAT 11:09 1Catch) Chau LOPEZ;COVID-19 CAH STAT 11:09 12/20/2020 11:53 Sathish,(Symptomatic as Chau Perryica R.N.Defined by CDC) PA;(11/24/2020) (NotFirst Test) (NotHospitalized) (Not) (NotResident in 2 OrderSheet [facility] Emergency Department [address] [place] [address] Phone #: ext- [phone] 12/20/2020 10:48 Patient: CHANTALE SOLOMON Sex: F : 1965 Age: 55yCongregate CareSetting) (NotEmployed inHealthcare Setting)Blood Culture STAT 13:31 12/20/2020 13:50 Sathish,q10m X2 (Sched Chau Chuassica R.N.13:31 12/20/2020) PA;Blood Culture STAT 13:31 12/20/2020 13:50 Sathish,q10m X2 (Sched Chau Jose Luis Chuassica R.N.13:41 12/20/2020) PA;CORONAVIRUS STAT 13:31 12/20/2020 14:02 Sathish,COVID-19 Chau Miranda R.N.(Symptomatic as PA;Defined by CDC)(11/24/2020) (NotFirst Test)(Hospitalized) (Not) (NotResident inCongregate CareSetting) (NotEmployed inHealthcare Setting)Culture, Sputum STAT 13:37 12/20/2020 13:50 Chau Bower R.N. PA;DIAGNOSTIC STUDY ORDERSOrder Description Priority Entered Acknowledged InitialedCT Chest W/O Cont STAT 11:09 12/20/2020 12:03 Sathish,(Oxygen?(No)) Chau LOPEZ; NOTES: previous covid pn Reason for Study: CHF, Shortness of BreathMEDICATION/IV/DRIP/FLUID ORDERSOrder Description Priority Entered Acknowledged InitialedNS IV 75 mL/hr: : 75 11:09 12/20/2020 11:37 Sathish,mL/hr Chau LOPEZ;Albuter ol/Ipratropiu 11:09 12/20/2020 11:36 Sathish,m 3 mL X2 Doses Chau Miranda R.N.(Filtered): 6 mL (3 PA;mL X2 Doses) 3 OrderSheet [facility] Emergency Department [address] [place] [address] Phone #: ext- [phone] 12/20/2020 10:48 Patient: CHANTALE SOLOMON Sex: F : 1965 Age: 55yDexamethasone 11:09 12/20/2020 11:36 Sathish,IVP 10mg Chau LOPEZ;Rocephin 12:52 12/20/2020 13:16 Sathish,(1gm/50mL) IVPB Chau Miranda R.NKellen1000 mg with PA;De xtrose 50 mlspike bag (D5W) Reason for ordering with alerts: Clinical consideration given -- 12:52 12/20/2020 Chau Amaya PAAzithromycin IVPB 12:52 12/20/2020 13:50 Sathish,500 mg X1 Dose: Chau Amaya Ruth R.N.500 mg with PA;DextroseIntravenous 250 mL(NOW x1) Reason for ordering with alerts: Clinical consideration given -- 12:52 12/20/2020 Chau Amaya PATylenol PO 1000 13:31 12/20/2020 13:58 mg Chau Bower R.N.;GENERAL ORDERSOrder Description Priority Entered Acknowledged InitialedEKG 11:09 12/20/2020 11:53 Chau Bower R.N.;Boat Joiner 11:12/20/2020 11:34 Sathish(continuous) Chau LOPEZ;Oxygen titrate to 11:12/20/2020 11:34 Sathish,92% Chau LOPEZ;Pulse Oximetry 11:12/20/2020 11:34 Sathish,Justa LOPEZ;Filtered Nebulizer 11:12/20/2020 11:34 Chau Bower R.N.;[Electronically signed by Ruth Bower R.N. (15:11 12/20/2020)][Electronically signed by Chau Amaya (21:07 12/20/2020)][Electronically locked by Ruth Bower R.N. (15:11 12/20/2020)] Name Value Range Interpretation Code Description Data Maura rce(s) Supporting Document(s) ID Date Data Source [id number] 12/20/2020 10:53:00 AM EST [facility] 1 Medication Reconciliation Report [facility] Emergency Department [address] [place] [address] Phone #: ext- [phone] 12/20/2020 10:48 Patient: [...] administered: 11:30 12/20/2020 2 Medication Reconciliation Report [facility] Emergency Department [address] [place] [address] Phone #: ext- [phone] 12/20/2020 10:48 Patient: CHANTALE SOLOMON Sex: F : 1965 Age: 55yDexamethasone [IVP] IVP 10 mg, administered: 11:36 12/20/2020NS [IV] IV Fluids bolus 0, then 75 mL/hr, administered: 11:37 1ROCEPHIN (1GM/50ML) [IVPB] IVPB bolus 0, then 1000 mg 100 mL/hr, administered: 13:16 12/20/2020zithromycin [IVPB] IVPB bolus 0, then 500 mg 250 mL/hr, administered: 13:50 12/20/2020Tylenol [PO] PO 1000 mg, administered: 13:58 12/20/2020The following Medications were prescribed to the patient:None. Name Value Range Interpretation Code Description Data Maura rce(s) Supporting Document(s) ID Date Data Source [id number] 12/20/2020 10:53:00 AM EST [facility] 1 Medication Administration Record [facility] Emergency Department [address] [place] [address] Phone #: ext- [phone] 12/20/2020 10:48 Patient: CHANTALE SOLOMON Sex: F : 1965 Age: 55yWeight: 80.2 kgHeight/Length: 60 inBMI: 34.5ALLERGIES: Penicillins, Seafood Date/Time Medication Administered Medication OrderedStart NS [IV] NS IV 75 mL/hr: : 75 mL/hr11:37 12/20/2020 Dose: IV FluidsRuth Bower, R.N. Rate: 75 mL/hr---- Dispensed: 75 mL bagStop Site: #1 right AC14:45 12/20/2020Ruth Bower, R.N.Given ALBUTEROL [NEB TX] Albuterol/Ipratropium 3 mL X211:30 12/20/2020 Dose: 5 mg Nebulizer Neb TX Doses (Filtered): 6 mL (3 mL [id number] Bower, R.N. Doses)----Stop11:45 12/20/2020Ruth Bower, R.N.Given DEXAMETHASONE [IVP] Dexamethasone IVP 10mg11:36 12/20/2020 Dose: 10 mg IVPRuth Bower, R.N. Site: #1 right ACStart ROCEPHIN (1GM/50ML) [IVPB] Rocephin (1gm/50mL) IVPB 047064:16 12/20/2020 (CEFTRIAXONE SODIUM) mg with Dextrose 50 ml spike bagRuth Bower, R.N. Dose: 1000 mg IVPB (D5W)---- Rate: 100 mL/hr over 30 minute(s)Stop Dispensed: 50 mL bag13:50 12/20/2020 Site: #1 right Ruth Frausto R.N.Start AZITHROMYCIN [IVPB] Azithromycin IVPB 500 mg X113:50 12/20/2020 Dose: 500 mg IVPB Dose: 500 mg with Ruth Silverman R.N. Rate: 250 mL/hr over 60 minute(s) Intravenous 250 mL (NOW x1)---- Site: #1 right AEVhgg28:59 12/20/2020Ruth Bower R.N.Given TYLENOL [PO] (APAP) Tylenol PO 1000 mg1 3:58 12/20/2020 Dose: 1000 mg Tablets Ruth Dejesus R.N. Name Value Range Interpretation Code Description Data Maura rce(s) Supporting Document(s) ID Date Data Source [id number] 12/20/2020 10:53:00 AM [facility] 1 General Instructions [facility] Emergency Department [address] [place] [address] Phone #: ext- [phone] 12/20/2020 10:48 Patient: CHANTALE SOLOMON Sex: F : 1965 Age: 55yLobar pneumonia.(Electronically signed by JOHN Yao 12/20/2020 21:07) Name Value Range Interpretation Code Description Data Maura rce(s) Supporting Document(s) ID Date Data Source [id number] 12/20/2020 10:53:00 AM [facility] 1 Clinical Report - Nurses [facility] Emergency Department [address] [place] [address] Phone #: ext- [phone] 12/20/2020 10:48 Patient: CHANTALE SOLOMON Sex: F [...] chemo last week, sees Dr. Steel via [facility]. Pt wears chronic 2L O2). 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 Symptoms did not improve after [...] Asher R.N.Allergies 2 Clinical Report - Nurses [facility] Emergency Department [address] [place] [address] Phone #: ext- [phone] 12/20/2020 10:48 Patient: [...] Asher R.N. 3 Clinical Report - Nurses [facility] Emergency Department [address] [place] [address] Phone #: ext- [phone] 12/20/2020 10:48 Patient: [...] aseptic technique; one attempt. Blood drawn: alessio set. Saline lock flushed with 10 mL saline. [...] 12/20/20 Ruth Bower R.N. Patient transported to [place] by wheelchair with mask and radiology director. --12:04 12/20/20 Sathish, Ruth, R.N. 4 Clinical Report - Nurses [facility] Emergency Department [address] [place] [address] Phone #: ext- [phone] 12/20/2020 10:48 Patient: [...] level now: 12/13. --13:17 12/20/20 Ruth Bower RMikel Reassessment after medication administered, fluids administered and [...] Bower R.N. 5 Clinical Report - Nurses [facility] Emergency Department [address] [place] [address] Phone #: ext- [phone] 12/20/2020 10:48 Patient: CHANTALE SOLOMON Sex: F : 1965 Age: 55y 14:45 12/20/20. Admitted to the Acute Inpatient Unit, Monitored. Transported via stretcher by nurse with monitor, IV, O2 and mask. Report was given. (NEY). Bed obtained and ready. Patient's personal items include: shirt, pants and shoes; items were placed in belongings bag and transported with the patient. --15:09 12/20/20 Ruth Bower R.N. Departure time: 14:45 12/20/2020. --15:11 12/20/20 Ruth Bower R.N.Locked/Released at 12/20/2020 15:11 by Ruth Bower R.N. Name Value Range Interpretation Code Description Data Maura rce(s) Supporting Document(s) ID Date Data Source [id number] 12/20/2020 10:53:00 AM [facility] 1 Clinical Report - Physicians/Mid Levels [facility] Emergency Department [address] [place] [address] Phone #: ext- [phone] 12/20/2020 10:48 Patient: CHANTALE SOLOMON Sex: F [...] chemo last week, sees Dr. Steel via [facility]. Pt wears chronic 2L O2). ( Pt [...] daily. 2 Clinical Report - Physicians/Mid Levels [facility] Emergency Department [address] [place] [address] Phone #: ext- [phone] 12/20/2020 10:48 Patient: CHANTALE SOLOMON Sex: F [...] liters/minute. Temp: 100 F. Pain level now: 510. Have been reviewed as normal. Oxygen saturationnormal.Appearance: [...] 80.0) 3 Clinical Report - Physicians/Mid Levels [facility] Emergency Department [address] [place] [address] Phone #: ext- [phone] 12/20/2020 10:48 Patient: [...] Male GFR Interprentation 20-49 yrs >60 mL/min Hbidtw84-54 yrs >56 mL/min Normal 60-69 yrs >49 mL/min Normal 70-79yrs>42 mL/min Normal 80 and above >35 mL/min Normal Female GFRInterpretation 20-39 yrs >60 mL/min Normal 40-49 yrs >58 mL/minNormal 50- 59 yrs >51 mL/min Normal 60-69 yrs >45 mL/min Cxjkgi54-84 yrs >39 mL/min Normal 80 and above >32 mL/min NormalD-Dimer: (SARAH: 12/20/2020 11:30) ( [facility] 12/20/[place] 13:03) Final results Test Result Flag Units (Reference) D-DIMER QUANT 2.90 H ug/mL (0.27 - 0.50)Influenza Nasal A B: (SARAH: 12/20/2020 11:52) ( Msg[facility]cvd 12/20/2020 12:39) Final results 4 Clinical Report - Physicians/Mid Levels [facility] Emergency Department [address] [place] [address] Phone #: ext- [phone] 12/20/2020 10:48 Patient: [...] managementdecisions. Lactic Acid: (SARAH: 12/20/2020 11:30) ( [facility] 12/20/2020 12:18) Final results Test Result Flag Units (Reference) LACTIC ACID 1.9 MMOL/L (0.2 - 2.2) Troponin-T: (SAARH: 12/20/2020 11:30) ( MsgRcvd 12/20/2020 12:54) Final [...] IMPRESSION 5 Clinical Report - Physicians/Mid Levels [facility] Emergency Department [address] [place] [address] Phone #: ext- [phone] 12/20/2020 10:48 Patient: CHANTALE SOLOMON Sex: F : 1965 Age: 55y Lobar pneumonia.(Electronically signed by JOHN Yao 12/20/2020 21:07) Name Value Range Interpretation Code Description Data Muara rce(s) Supporting Document(s) ID Date Data Source [id number] 12/20/2020 10:53:00 AM EST [facility] Addenda for CHANTALE SOLOMON VisitID: [id number] Date: 10:20Pt covid test negative, pt was admitted to [facility] and was negative per rapid; Pt was d/c home and calledher at 1018, left voicemail.(Electronically signed by Meghann Asher R.N. - 12/25/2020 10:20)12/25/2020 13:01Pt called back at 1209 and made aware of PCR results, no further intervention required.(Electronically signed by Meghnan Asher R.N. - 12/25/2020 13:01) Name Value Range Interpretation Code Description Data Maura rce(s) Supporting Document(s) ID Date Data Source [id number] 12/23/2020 07:11:00 AM EST [facility] (Osmel Alvarez MD) Name Value Range Interpretation Code Description Data Maura rce(s) Supporting Document(s) Laboratory test finding (navigational concept) Laboratory test result [facility] (Osmel Alvarez MD) COMPLETE BLOOD COUNT Laboratory test finding (navigational concept) 4.1 10^3/uL 4 .2-11.0 Below low normal [facility] (Osmel Alvarez MD) Laboratory test finding (navigational concept) 2.75 10^6/uL 4 .20-5.40 Below low normal [facility] (Osmel Alvarez MD) Laboratory test finding (navigational concept) 9.4 g/dL 1 2.0-16.0 Below low normal [facility] (Osmel Alvarez MD) Laboratory test finding (navigational concept) 27.8 % 3 7.0-47.0 Below low normal [facility] (Osmel Alvarez MD) Laboratory test finding (navigational concept) 101.1 fL 8 1.0-101 Above high normal [facility] (Osmel Alvarez MD) Laboratory test finding (navigational concept) 34.2 pg 2 7.0-34.0 Above high normal [facility] (Osmel Alvarez MD) Laboratory test finding (navigational concept) 14.2 % 11.5-14.5 [facility] (Omsel Alvarez MD) Laboratory test finding (navigational concept) 33.8 g/dL 31.0-36.0 [facility] (Osmel Alvarez MD) Laboratory test finding (navigational concept) 219 10^3/uL 150-450 [facility] (Osmel Alvarez MD) Laboratory test finding (navigational concept) 9.3 fL 7.4-10.4 [facility] (Osmel Alvarez MD) Laboratory test finding (navigational concept) 62.4 % 37.0-80.0 [facility] (Osmel Alvarez MD) Laboratory test finding (navigational concept) 11.3 % 2 5.0-40.0 Below low normal [facility] (Osmel Alvarez MD) Laboratory test finding (navigational concept) 17.2 % 3.0-8.0 Above high normal [facility] (Osmel Alvarez MD) Laboratory test finding (navigational concept) 0.0 % 0.0-7.0 [facility] (Osmel Alvarez MD) Laboratory test finding (navigational concept) 0.5 % 0.0-2.5 [facility] (Osmel Alvarez MD) Laboratory test finding (navigational concept) 8.6 % 0.0-0.0 Above high normal [facility] (Osmel Alvarez MD) Laboratory test finding (navigational concept) 0.5 % 0.0-0.0 Above high normal [facility] (Osmel Alvarez MD) Laboratory test finding (navigational concept) 0.46 10^3/uL 0 .60-3.40 Below low normal [facility] (Osmel Alvarez MD) Laboratory test finding (navigational concept) 2.53 10^3/uL 2.00-6.90 [facility] (Osmel Alvarez MD) Laboratory test finding (navigational concept) 0.00 10^3/uL 0.00-0.70 [facility] (Osmel Alvarez MD) Laboratory test finding (navigational concept) 0.70 10^3/uL 0.00-0.90 [facility] (Osmel Alvarez MD) Laboratory test finding (navigational concept) 0.02 10^3/uL 0.00-0.20 [facility] (Osmel Alvarez MD) Laboratory test finding (navigational concept) 0.35 10^3/uL 0 .00-0.10 Above high normal [facility] (Osmel Alvarez MD) Laboratory test finding (navigational concept) 0.02 10^3/uL 0 .00-0.00 Above high normal [facility] (Osmel Alvarez MD) Laboratory test finding (navigational concept) 73 % 37-80 [facility] (Osmel Alvarez MD) Laboratory test finding (navigational concept) Laboratory test result [facility] (Osmel Alvarez MD) Laboratory test finding (navigational concept) 0 % 0-5 [facility] (Osmel Alvarez MD) Laboratory test finding (navigational concept) 16 % 25-40 Below low normal [facility] (Osmel Alvarez MD) Laboratory test finding (navigational concept) 11 % 3-8 Above high normal [facility] (Osmel Alvarez MD) Laboratory test finding (navigational concept) 0 % 0-2 [facility] (Osmel Alvarez MD) Laboratory test finding (navigational concept) 0 % 0-7 [facility] (Osmel Alvarez MD) Laboratory test finding (navigational concept) Laboratory test result [facility] (Osmel Alvarez MD) ID Date Data Source [id number] 12/23/2020 07:11:00 AM EST [facility] (Osmel Alvarez MD) Name Value Range Interpretation Code Description Data Maura rce(s) Supporting Document(s) Laboratory test finding (navigational concept) Laboratory test result [facility] (Osmel Alvarez MD) COMPREHENSIVE METABOLIC PANEL Laboratory test finding (navigational concept) 136 meq/L 134-153 [facility] (Osmel Alvarez MD) Laboratory test finding (navigational concept) 29 meq/L 22-30 [facility] (Osmel Alvarez MD) Laboratory test finding (navigational concept) 4.8 meq/L 3.6-5.0 [facility] (Osmel Alvarez MD) Laboratory test finding (navigational concept) 98 meq/L 98-107 [facility] (Osmel Alvarez MD) Laboratory test finding (navigational concept) 21 mg/dL 7-21 [facility] (Osmel Alvarez MD) Laboratory test finding (navigational concept) 147 mg/dL 7 0-99 Above high normal [facility] (Osmel Alvarez MD) Laboratory test finding (navigational concept) 0.8 mg/dL 0.7-1.5 [facility] (Osmel Alvarez MD) Laboratory test finding (navigational concept) 26 8-27 [facility] (Osmel Alvarez MD) Laboratory test finding (navigational concept) 3.4 g/dL 3 .9-5.0 Below low normal [facility] (Osmel Alvarez MD) Laboratory test finding (navigational concept) 6.2 g/dL 6 .3-8.2 Below low normal [facility] (Osmel Alvarez MD) Laboratory test finding (navigational concept) 2.8 GM/DL 2.4-3.2 [facility] (Osmel Alvarez MD) Laboratory test finding (navigational concept) 1.2 0.8-2.0 [facility] (Osmel Alvarez MD) Laboratory test finding (navigational concept) 8.3 mg/dL 8 .4-10.2 Below low normal [facility] (Osmel Alvarez MD) Laboratory test finding (navigational concept) 102 U/L 38-126 [facility] (Osmel Alvarez MD) Laboratory test finding (navigational concept) Laboratory test resu lt 0.2-1.3 [facility] (Osmel Alvarez MD) Laboratory test finding (navigational concept) 64 U/L 7-56 Above high normal [facility] (Osmel Alvarez MD) Laboratory test finding (navigational concept) 47 U/L 5-40 Above high normal [facility] (Osmel Alvarez MD) Laboratory test finding (navigational concept) 55 yrs [facility] (Osmel Alvarez MD) Laboratory test finding (navigational concept) 9.0 mmol/L 8.0-16.0 [facility] (Osmel Alvarez MD) Laboratory [...] Normal 80 and above >32 mL/min Normal Laboratory test finding (navigational concept) Laboratory test result [facility] (Osmel Alvarez MD) ID Date Data Source [id number] 12/23/2020 07:11:00 AM EST [facility] (Osmel Alvarez MD) Name Value Range Interpretation Code Description Data Maura rce(s) Supporting Document(s) Magnesium [Mass/volume] in Serum or Plasma 1.7 mg/dL 1.7-2.2 [facility] (Osmel Alvarez MD) ID Date Data Source [id number] 12/23/2020 08:54:00 AM EST [facility] Name Value Range Interpretation Code Description Data Maura rce(s) Supporting Document(s) CBC W/AUTOMATED DIFF [facility] COMPLETE BLOOD COUNT Leukocytes [#/volume] in Blood by Automated count 4.1 10^3/uL 4.2 - 1 1.0 L [facility] Erythrocytes [#/volume] in Blood by Automated count 2.75 10^6/uL 4. 20 - 5.40 L [facility] Hemoglobin [Mass/volume] in Blood 9.4 g/dL 12.0 - 16.0 L [facility] Hematocrit [Volume Fraction] of Blood by Automated count 27.8 % 3 7.0 - 47.0 L [facility] Erythrocyte mean corpuscular volume [Entitic volume] b y Automated count 101.1 fL 81.0 - 101 H [facility] Erythrocyte mean corpuscular hemoglobin [Entitic mass] by Automated count 34.2 pg 27.0 - 34.0 H [facility] Erythrocyte mean corpuscular hemoglobin concentration [Mass/volume] by Automated count 33.8 g/dL 31.0 - 36.0 [facility] Erythrocyte distribution width [Ratio] by Automated count 14.2 % 11.5 - 14.5 [facility] Platelets [#/volume] in Blood by Automated count 219 10^3/uL 150 - 45 0 [facility] Platelet mean volume [Entitic volume] in Blood by Automated count 9.3 fL 7.4 - 10.4 [facility] Neutrophils/100 leukocytes in Blood by Automated count 62.4 % 37. 0 - 80.0 [facility] Lymphocytes/100 leukocytes in Blood by Manual count 11.3 % 25.0 - 40.0 L [facility] Monocytes/100 leukocytes in Blood by Automated count 17.2 % 3.0 - 8.0 H [facility] Eosinophils/100 leukocytes in Blood by Automated count 0.0 % 0.0 - 7.0 [facility] 0.5 %IG 8.6 % 0.0 - 0.0 [facility] 0.5 % 0.0 - 0.0 [facility] al Neutrophils [#/volume] in Blood by Automated count 2.53 10^3/uL 2.00 - 6.90 [facility] Lymphocytes [#/volume] in Blood by Automated count 0.46 10^3/uL 0.60 - 3.40 L [facility] Monocytes [#/volume] in Blood by Automated count 0.70 10^3/uL 0.00 - 0.90 [facility] Eosinophils [#/volume] in Blood by Automated count 0.00 10^3/uL 0.00 - 0.70 [facility] Basophils [#/volume] in Blood by Automated count 0.02 10^3/uL 0.00 - 0.20 [facility] #IG 0.35 10^3/uL 0.00 - 0.10 H [facility]ital #NRBC 0.02 10^3/uL 0.00 - 0.00 H [facility] ospital MANUAL DIFF SEE BELOW [facility] ital Segmented neutrophils/100 leukocytes in Blood by Manual count 73 % 37 - 80 [facility] BAND 0 % 0 - 5 [facility] al %LYMPH 16 % 25 - 40 L [facility] al %MONO 11 % 3 - 8 H [facility] %EOS 0 % 0 - 7 [facility] RBC MORPH NOT INDICATED [facility] spital ID Date Data Source [id number] 12/23/2020 08:49:00 AM EST [facility] Name Value Range Interpretation Code Description Data Maura rce(s) Supporting Document(s) COMPREHENSIVE METABOLIC PANEL [facility] COMPREHENSIVE METABOLIC PANEL Sodium [Moles/volume] in Serum or Plasma 136 mEq/L 134 - 153 [facility] Potassium [Moles/volume] in Serum or Plasma 4.8 mEq/L 3.6 - 5.0 [facility] Chloride [Moles/volume] in Serum or Plasma 98 mEq/L 98 - 107 [facility] Carbon dioxide, total [Moles/volume] in Serum or Plasma 29 MEQ/L 22 - 30 [facility] Glucose [Mass/volume] in Serum or Plasma 147 MG/DL 70 - 99 [facility] BUN 21 MG/DL 7 - 21 [facility] Creatinine [Mass/volume] in Serum or Plasma 0.8 MG/DL 0.7 - 1.5 [facility] BUN/CREAT 26 8 - 27 [facility] Protein [Mass/volume] in Serum or Plasma 6.2 G/DL 6.3 - 8.2 L [facility] Albumin [Mass/volume] in Serum or Plasma 3.4 G/DL 3.9 - 5.0 L [facility] Globulin [Mass/volume] in Serum by calculation 2.8 GM/DL 2.4 - 3.2 [facility] A/G RATIO 1.2 0.8 - 2.0 [facility] Calcium [Mass/volume] in Serum or Plasma 8.3 MG/DL 8.4 - 10.2 L [facility] Bilirubin.total [Mass/volume] in Serum or Plasma <0.7 MG/DL 0.2 - 1.3 [facility] Alkaline phosphatase [Enzymatic activity/volume] in Serum or Plasma 102 U/L 38 - 126 [facility] Aspartate aminotransferase [Enzymatic activity/volume] in Serum or Plasma 47 U/L 5 - 40 H [facility] Alanine aminotransferase [Enzymatic activity/volume] in Seru m or Plasma 64 U/L 7 - 56 H [facility] Anion gap 3 in Serum or Plasma 9.0 mmol/L 8.0 - 16.0 [facility] AGE 55 yrs [facility] al NON-AA GFR >60 mL/min [facility] ital AFR AMER GFR >60 mL/min [facility] Ho spital Male GFR In [...] >32 mL/min Normal ID Date Data Source [id number] 12/23/2020 08:34:00 AM EST [facility] Name Value Range Interpretation Code Description Data Maura rce(s) Supporting Document(s) Magnesium [Mass/volume] in Serum or Plasma 1.7 MG/DL 1.7 - 2.2 [facility] ID Date Data Source [id number] 12/22/2020 02:04:00 PM EST [address] [place] [address] RESPIRATORY CARE REPORT ==== ---------NAME------- NUMBER SEX AGE ADMIT DISC. XRAY# F/C CYNDY Daniels [id number] F 55 12/20/20 [id number] B1 I/P DATE OF : 1965 M/R# [id number] PH#: [phone] CCU4 LOCATION: EMERGENCY DEPT EKG 30093 COMPL ETE:12/21/20 08:36 M 10917 PHYSICIAN: KIM MENDEZ Name Value Range Interpretation Code Description Data Maura rce(s) Supporting Document(s) ID Date Data Source [id number] 12/22/2020 06:49:00 AM EST [facility] (Osmel Alvarez MD) Name Value Range Interpretation Code Description Data Maura rce(s) Supporting Document(s) Magnesium [Mass/volume] in Serum or Plasma 1.8 mg/dL 1.7-2.2 [facility] (Osmel Alvarez MD) ID Date Data Source [id number] 12/22/2020 06:49:00 AM EST [facility] (Osmel Alvarez MD) Name Value Range Interpretation Code Description Data Maura rce(s) Supporting Document(s) Laboratory test finding (navigational concept) Laboratory test result [facility] (Osmel Alvarez MD) COMPREHENSIVE METABOLIC PANEL Laboratory test finding (navigational concept) 5.0 meq/L 3.6-5.0 [facility] (Osmel Alvarez MD) Laboratory test finding (navigational concept) 133 meq/L [...] (navigational concept) 106 U/L 38-126 [facility] (Osmel Avlarez MD) Laboratory test finding (navigational concept) 44 [...] >32 mL/min Normal ID Date Data Source [id number] 12/22/2020 06:49:00 AM EST [facility] (Osmel Alvarez [...] 4 .2-11.0 Below low normal [facility] (Osmel Alvarez MD) Laboratory test finding (navigational concept) 26.6 [...] 6 % 3-8 [facility] (Osmel Alvarez MD) Laboratory test finding (navigational concept) 8 % 25-40 Below low normal [facility] (Osmel Alvarez MD) Laboratory test finding (navigational concept) Laboratory test result [facility] (Osmel Alvarez MD) ID Date Data Source [id number] 12/22/2020 07:48:00 AM [facility] Name Value Range Interpretation Code Description Data Maura rce(s) Supporting Document(s) Magnesium [Mass/volume] in Serum or Plasma 1.8 MG/DL 1.7 - 2.2 [facility] ID Date Data Source [id number] 12/22/2020 07:48:00 AM [facility] Name Value Range Interpretation Code Description Data Maura rce(s) Supporting Document(s) COMPREHENSIVE METABOLIC PANEL [facility] COMPREHENSIVE METABOLIC PANEL Sodium [Moles/volume] in Serum or Plasma 133 mEq/L 134 - 153 L [facility] Potassium [Moles/volume] in Serum or Plasma 5.0 mEq/L 3.6 - 5.0 [facility] Chloride [Moles/volume] in Serum or Plasma 98 mEq/L 98 - 107 [facility] Carbon dioxide, total [Moles/volume] in Serum or Plasma 30 MEQ/L 22 - 30 [facility] Glucose [Mass/volume] in Serum or Plasma 147 MG/DL 70 - 99 H [facility] BUN 19 MG/DL 7 - 21 [facility] Creatinine [Mass/volume] in Serum or Plasma 0.8 MG/DL 0.7 - 1.5 [facility] BUN/CREAT 24 8 - 27 [facility] Protein [Mass/volume] in Serum or Plasma 6.1 G/DL 6.3 - 8.2 L [facility] Albumin [Mass/volume] in Serum or Plasma 3.2 G/DL 3.9 - 5.0 L [facility] Globulin [Mass/volume] in Serum by calculation 2.9 GM/DL 2.4 - 3.2 [facility] A/G RATIO 1.1 0.8 - 2.0 [facility] Calcium [Mass/volume] in Serum or Plasma 8.5 MG/DL 8.4 - 10.2 [facility] Bilirubin.total [Mass/volume] in Serum or Plasma <0.7 MG/DL 0.2 - 1.3 [facility] Alkaline phosphatase [Enzymatic activity/volume] in Serum or Plasma 106 U/L 38 - 126 [facility] Aspartate aminotransferase [Enzymatic activity/volume] in Serum or Plasma 44 U/L 5 - 40 H [facility] Alanine aminotransferase [Enzymatic activity/volume] in Seru m or Plasma 40 U/L 7 - 56 [facility] Anion gap 3 in Serum or Plasma 5.0 mmol/L 8.0 - 16.0 L [facility] AGE 55 yrs [facility] al NON-AA GFR >60 mL/min [facility] ital AFR AMER GFR >60 mL/min [facility] Male GFR In [...] >32 mL/min Normal ID Date Data Source [id number] 12/22/2020 07:47:00 AM EST [facility] Name Value Range Interpretation Code Description Data Maura rce(s) Supporting Document(s) CBC W/AUTOMATED DIFF [facility] COMPLETE BLOOD COUNT Leukocytes [#/volume] in Blood by Automated count 3.9 10^3/uL 4.2 - 1 1.0 L [facility] Erythrocytes [#/volume] in Blood by Automated count 2.64 10^6/uL 4. 20 - 5.40 L [facility] Hemoglobin [Mass/volume] in Blood 9.0 g/dL 12.0 - 16.0 L [facility] Hematocrit [Volume Fraction] of Blood by Automated count 26.6 % 3 7.0 - 47.0 L [facility] Erythrocyte mean corpuscular volume [Entitic volume] b y Automated count 100.8 fL 81.0 - 101 [facility] Erythrocyte mean corpuscular hemoglobin [Entitic mass] by Automated count 34.1 pg 27.0 - 34.0 H [facility] Erythrocyte mean corpuscular hemoglobin concentration [Mass/volume] by Automated count 33.8 g/dL 31.0 - 36.0 [facility] Erythrocyte distribution width [Ratio] by Automated count 14.1 % 11.5 - 14.5 [facility] Platelets [#/volume] in Blood by Automated count 221 10^3/uL 150 - 45 0 [facility] Platelet mean volume [Entitic volume] in Blood by Automated count 8.9 fL 7.4 - 10.4 [facility] Neutrophils/100 leukocytes in Blood by Automated count 71.5 % 37. 0 - 80.0 [facility] Lymphocytes/100 leukocytes in Blood by Manual count 10.3 % 25.0 - 40.0 L [facility] Monocytes/100 leukocytes in Blood by Automated count 11.8 % 3.0 - 8.0 H [facility] Eosinophils/100 leukocytes in Blood by Automated count 0.0 % 0.0 - 7.0 [facility] Basophils/100 leukocytes in Blood by Automated count 0.0 % 0.0 - 2.5 [facility] %IG 6.4 % 0.0 - 0.0 [facility] %NRBC 0.0 % 0.0 - 0.0 [facility] al Neutrophils [#/volume] in Blood by Automated count 2.78 10^3/uL 2.00 - 6.90 [facility] Lymphocytes [#/volume] in Blood by Automated count 0.40 10^3/uL 0.60 - 3.40 L [facility] Monocytes [#/volume] in Blood by Automated count 0.46 10^3/uL 0.00 - 0.90 [facility] Eosinophils [#/volume] in Blood by Automated count 0.00 10^3/uL 0.00 - 0.70 [facility] Basophils [#/volume] in Blood by Automated count 0.00 10^3/uL 0.00 - 0.20 [facility] #IG 0.25 10^3/uL 0.00 - 0.10 H [facility] H ospital #NRBC 0.00 10^3/uL 0.00 - 0.00 [facility] ospital MANUAL DIFF SEE BELOW [facility]osp ital Segmented neutrophils/100 leukocytes in Blood by Manual count 86 % 37 - 80 H [facility] %LYMPH 8 % 25 - 40 L [facility] al %MONO 6 % 3 - 8 [facility] al Nucleated erythrocytes/100 erythrocytes in Blood by Manual count 1 % [facility] RBC MORPH NOT INDICATED [facility] spital ID Date Data Source [id number] 12/21/2020 12:16:00 PM EST [facility] [address] [place] [address] RESPIRATORY CARE REPORT ==== ---------NAME------- NUMBER SEX AGE ADMIT DISC. XRAY# F/C CYNDY Daniels [id number] F 55 12/20/20 [id number] B1 I/P DATE OF : 1965 M/R# [id number] #: [id number] CCU4 LOCATION: EMERGENCY DEPT EKG 72774 COMPL ETE:12/20/20 14:53 [facility] [address] PHYSICIAN: KIM AMAYA Name Value Range Interpretation Code Description Data Maura e(s) Supporting Document(s) ID Date Data Source [id number] 12/21/2020 09:42:00 AM EST [facility] [address] [place] [address] PHONE: [phone] FAX: [phone] Name .................. : JUANITO Daniels Acct Number.................. : [id number] ROOM. ................. : CCU4 MR Number ................... : [id number] Stay type ............. : I/P Discharge Date......... ... : Admit Date ......... : 12/20/20 Admit Phys .................... : KIM VANESSA Date of ....... : 1965 Family Phys ................... : SEQUEIRA Phone .................. : [phone] Age ................................ : 55 Film# .................. .:[id number] Sex ................................. : F Unsigned transcriptions are preliminary reports and do not represent a medical or legal document CT THORAX W/O CONTRAST [id number] COMPLETE:12/20/20 19:15 KATINA 4511 Reason(s): CHF CT SCAN OF THE CHEST WITHOUT CONTRAST: TECHNIQUE: CT scanning of the chest is performed without the use of intravenous contrast. COMPARISON: 1/22/21 FINDINGS: Again seen is consolidation of essentially [...] imperative reconstructive techniques. Page 1 of 2 [place] [address] PHONE: [phone] FAX: [phone] Name .................. : JUANITO Daniels Acct Number.................. : [id number] ROOM. ................. : CCU4 MR Number ................... : [id number] Stay type ............. : I/P Discharge Date......... ... : Admit Date ......... : 12/20/20 Admit Phys .................... : KIM MENDEZ Date of ....... : 1965 Family Phys ................... : SEQUEIRA Phone .................. : [phone] Age ................................ : 55 Film# .................. .:[id number] Sex ................................. : F Unsigned transcriptions are preliminary reports and do not represent a medical or legal document CT THORAX W/O CONTRAST [id number] COMPLETE:12/20/20 19:15 KATINA 4511 Reason(s): CHF CT dose: 550 mGycm Electronically Reviewed and Signed By Elier Rodríguez MD , 12/21/20 09:42, AML Transcribe Initials: DZ , Transcribe Date: 12/21/20 01:31, Dictation Date: Copy for: [facility] Copy for: 710 MED REC Page 2 of 2 Name Value Range Interpretation Code Description Data Maura rce(s) Supporting Document(s) ID Date Data Source [id number] 12/21/2020 05:45:00 AM EST [facility] (Osmel Alvarez MD) Name Value Range Interpretation Code Description Data Maura rce(s) Supporting Document(s) Magnesium [Mass/volume] in Serum or Plasma 2.1 mg/dL 1.7-2.2 [facility] (Osmel Alvarez MD) ID Date Data Source [id number] 12/21/2020 05:45:00 AM EST [facility] (Osmel Alvarez MD) Name Value Range Interpretation Code Description Data Maura rce(s) Supporting Document(s) Laboratory test finding (navigational concept) Laboratory test result [facility] (Osmel Alvarez MD) COMPLETE BLOOD COUNT Laboratory test finding (navigational concept) 4.2 10^3/uL 4.2-11.0 [facility] (Osmel Alvarez MD) Laboratory test finding (navigational concept) 2.73 10^6/uL [...] % 37-80 Above high normal [facility] (Osmel Alvraez MD) Laboratory test finding (navigational concept) 0 [...] (Osmel Alvarez MD) ID Date Data Source [id number] 12/21/2020 05:45:00 AM EST [facility] (Osmel Alvarez MD) Name Value Range Interpretation Code Description Data Maura rce(s) Supporting Document(s) Cobalamin (Vitamin B12) [Mass/volume] in Serum or Plasma 857 pg/mL 2 32-1245 [facility] (Osmel Alvarez MD) Iron [Mass/volume] in Serum or Plasma 50 ug/dL 42-135 [facility] (Osmel Alvarez MD) ID Date Data Source [id number] 12/21/2020 05:45:00 AM EST [facility] (Osmel Alvarez [...] finding (navigational concept) 15 mg/dL 7-21 [facility] (Osmle Alvarez MD) Laboratory test finding (navigational concept) [...] >32 mL/min Normal ID Date Data Source [id number] 12/21/2020 10:24:00 AM [facility] Name Value Range Interpretation Code Description Data Maura rce(s) Supporting Document(s) Cobalamin (Vitamin B12) [Mass/volume] in Serum or Plasma 857 PG/ML 232 - 1245 [facility] ID Date Data Source [id number] 12/21/2020 10:12:00 AM [facility] Name Value Range Interpretation Code Description Data Maura rce(s) Supporting Document(s) Iron [Mass/volume] in Serum or Plasma 50 UG/DL 42 - 135 [facility] ID Date Data Source [id number] 12/21/2020 07:03:00 AM [facility] Name Value Range Interpretation Code Description Data Maura rce(s) Supporting Document(s) CBC W/AUTOMATED DIFF [facility] COMPLETE BLOOD COUNT Leukocytes [#/volume] in Blood by Automated count 4.2 10^3/uL 4.2 - 1 1.0 [facility] Erythrocytes [#/volume] in Blood by Automated count 2.73 10^6/uL 4. 20 - 5.40 L [facility] Hemoglobin [Mass/volume] in Blood 9.4 g/dL 12.0 - 16.0 L [facility] Hematocrit [Volume Fraction] of Blood by Automated count 27.6 % 3 7.0 - 47.0 L [facility] Erythrocyte mean corpuscular volume [Entitic volume] b y Automated count 101.1 fL 81.0 - 101 H [facility] Erythrocyte mean corpuscular hemoglobin [Entitic mass] by Automated count 34.4 pg 27.0 - 34.0 H [facility] Erythrocyte mean corpuscular hemoglobin concentration [Mass/volume] by Automated count 34.1 g/dL 31.0 - 36.0 [facility] Erythrocyte distribution width [Ratio] by Automated count 14.3 % 11.5 - 14.5 [facility] Platelets [#/volume] in Blood by Automated count 239 10^3/uL 150 - 45 0 [facility] Platelet mean volume [Entitic volume] in Blood by Automated count 8.8 fL 7.4 - 10.4 [facility] Neutrophils/100 leukocytes in Blood by Automated count 84.6 % 37. 0 - 80.0 H [facility] Lymphocytes/100 leukocytes in Blood by Manual count 8.8 % 25.0 - 40.0 L [facility] Monocytes/100 leukocytes in Blood by Automated count 5.2 % 3.0 - 8.0 [facility] Eosinophils/100 leukocytes in Blood by Automated count 0.0 % 0.0 - 7.0 [facility] 0.0 %IG 1.4 % 0.0 - 0.0 [facility] %NRBC 0.0 % 0.0 - 0.0 [facility] Neutrophils [#/volume] in Blood by Automated count 3.57 10^3/uL 2.00 - 6.90 [facility] Lymphocytes [#/volume] in Blood by Automated count 0.37 10^3/uL 0.60 - 3.40 L [facility] Monocytes [#/volume] in Blood by Automated count 0.22 10^3/uL 0.00 - 0.90 [facility] Eosinophils [#/volume] in Blood by Automated count 0.00 10^3/uL 0.00 - 0.70 [facility] Basophils [#/volume] in Blood by Automated count 0.00 10^3/uL 0.00 - 0.20 [facility] #IG 0.06 10^3/uL 0.00 - 0.10 [facility] #NRBC 0.00 10^3/uL 0.00 - 0.00 [facility] MANUAL DIFF SEE BELOW [facility] ital Segmented neutrophils/100 leukocytes in Blood by Manual count 90 % 37 - 80 H [facility] BAND 0 % 0 - 5 [facility] al %LYMPH 8 % 25 - 40 [facility] %MONO 2 % 3 - 8 [facility] %EOS 0 % 0 - 7 [facility] 0 RBC MORPH NOT INDICATED [facility] ID Date Data Source [id number] 12/21/2020 07:01:00 AM EST [facility] Name Value Range Interpretation Code Description Data Maura rce(s) Supporting Document(s) COMPREHENSIVE METABOLIC PANEL [facility] COMPREHENSIVE METABOLIC PANEL Sodium [Moles/volume] in Serum or Plasma 135 mEq/L 134 - 153 [facility] Potassium [Moles/volume] in Serum or Plasma 4.9 mEq/L 3.6 - 5.0 [facility] Chloride [Moles/volume] in Serum or Plasma 98 mEq/L 98 - 107 [facility] Carbon dioxide, total [Moles/volume] in Serum or Plasma 29 MEQ/L 22 - 30 [facility] Glucose [Mass/volume] in Serum or Plasma 144 MG/DL 70 - 99 H [facility] BUN 15 MG/DL 7 - 21 [facility] al Creatinine [Mass/volume] in Serum or Plasma 0.8 MG/DL 0.7 - 1.5 [facility] BUN/CREAT 19 8 - 27 [facility] Protein [Mass/volume] in Serum or Plasma 5.6 G/DL 6.3 - 8.2 L [facility] Albumin [Mass/volume] in Serum or Plasma 3.2 G/DL 3.9 - 5.0 L [facility] Globulin [Mass/volume] in Serum by calculation 2.4 GM/DL 2.4 - 3.2 [facility] A/G RATIO 1.3 0.8 - 2.0 [facility] Calcium [Mass/volume] in Serum or Plasma 8.7 MG/DL 8.4 - 10.2 [facility] Bilirubin.total [Mass/volume] in Serum or Plasma <0.7 MG/DL 0.2 - 1.3 [facility] Alkaline phosphatase [Enzymatic activity/volume] in Serum or Plasma 102 U/L 38 - 126 [facility] Aspartate aminotransferase [Enzymatic activity/volume] in Serum or Plasma 19 U/L 5 - 40 [facility] Alanine aminotransferase [Enzymatic activity/volume] in Seru m or Plasma 17 U/L 7 - 56 [facility] Anion gap 3 in Serum or Plasma 8.0 mmol/L 8.0 - 16.0 [facility] AGE 55 yrs [facility] al NON-AA GFR >60 mL/min [facility] ital AFR AMER GFR >60 mL/min [facility]ital Male GFR In [...] >32 mL/min Normal ID Date Data Source [id number] 12/21/2020 06:56:00 AM EST [facility] Name Value Range Interpretation Code Description Data Maura rce(s) Supporting Document(s) Magnesium [Mass/volume] in Serum or Plasma 2.1 MG/DL 1.7 - 2.2 [facility] ID Date Data Source [id number] 12/20/2020 06:00:00 PM EST [facility] (Osmel Alvarez MD) Name Value Range Interpretation Code Description Data Maura rce(s) Supporting Document(s) Laboratory test finding (navigational concept) Laboratory test result [facility] (Osmel Alvarez MD) CORRECTE D REPORT _CULTURE SPUTUM_ ^$[id number] ^^[id number] $$[id number] $$[id number] $$[id number] $$[id number] $$[id number] $$[id number] $$[id number] ^^[id number] $$[id number] ^^[id number] $$[id number] $$[id number] $$[id number] $$[id number] $$[id number] REPORTED DATE/TIME: 12/24/2020 15:05 Culture: CULTURE SPUTUM Status: Final White Blood Cells: P1 Few Epithelial Cells: P1 Few Result 1: P1 Rare gram positive cocci in pairs, chains, and clusters -- Continued on next page -- Patient: JUANITO Daniels Order: [id number] Page 2 Culture: CULTURE SPUTUM Status: Final Gram Stain Evaluation: P1 This specimen is of good quality and is acceptable for routine bacterial culture. Lower Respiratory Culture: P1 Routine respiratory jerome Previous result entered on 12/23/2020 14:49 ET Routine respiratory jerome P1 Test performed by: [facility] #: [id number] [address] [place] [address] Avenue [phone] [facility] [id number] Sales Performance Analyst : Yonas Rascon MD NPI #: Mimeographer : 12/22/20.1601.XMT.SENT REF 12/23/20.1714.XMT.SENT REF 12/23/20.1714. .to [facility] via mode m FOLLOWING RESULTS REPORTED IN ERROR REPORTED DATE/TIME: 12/23/2020 15:06 Culture: CULTURE SPUTUM Status: Prelim Culture: CULTURE SPUTUM Status: Prelim ID Date Data Source [id number] 12/20/2020 06:00:00 PM EST [facility] (Osmel Alvarez MD) Name Value Range Interpretation Code Description Data Maura rce(s) Supporting Document(s) Laboratory test finding (navigational concept) Laboratory test result [facility] (Osmel Alvarez MD) ID Date Data Source [id number] 12/20/2020 06:00:00 PM EST [facility] (Osmel Alvarez [...] SOURCE: Clean Catch ID Date Data Source [id number] 12/24/2020 04:08:00 PM EST [facility] Name Value Range Interpretation Code Description Data Maura rce(s) Supporting Document(s) CULTURE [facility] CORRECTE D REPORT _CULTURE SPUTUM_$$[id number]$$[id number]$$[id number]$$[id number]$$[id number]$$[id number]$$[id number]$$[id number]$$[id number]$ $[id number]$$412937$$[id number]$$[id number] DATE/TIME: 12/24/2020 15:05Culture: CULTURE SPUTUM Status: FinalWhite Blood Cells: P5AafFx ithelial Cells: W7DipEibacu 1: P1Rare gram positive cocci in pairs, chains, and clusters -- Continued on next page --Patient: JUANITO Daniels Order: [id number] Page 2Culture: CULTURE SPUTUM Status: Final ====Gram Stain Evaluation: P1This specimen is of good quality and is acceptable for routinebacterial culture.Lower Respiratory Culture: [id number] respiratory jerome Previous result entered on 12/23/2020 14:49 ET Routine respiratory floraP1 Test performed by: [facility] #: [id number] [address] [place] [id number] [facility] [phone] Director : Yonas Rascon MD NPI #:Mimeographer : 12/22/20.1601.XMT.SENT REF 12/23/20.1714.XMT.SENT REF 12/23/20.1714.MD [facility] modem FOLLOWING RESULTS REPORTED IN ERROR REPORTED DATE/TIME: 12/23/2020 15:06Culture: CULTURE SPUTUM Status: PrelimCulture: CULTURE SPUTUM Status: Prelim CORRECT FINAL REPORT [facility] ID Date Data Source [id number] 12/20/2020 06:58:00 PM EST [facility] Name Value Range Interpretation Code Description Data Maura rce(s) Supporting Document(s) [facility] COL[facility] yellow NORMAL: Yellow [facility] CLARITY clear NORMAL: Clear [facility] Specific gravity of Urine by Test strip 1.015 1.001 - 1.030 [facility] pH 8 5 - 9 [facility] al Glucose [Mass/volume] in Urine by Test strip [facility] Bilirubin.total [Presence] in Urine by Test strip NEG NORMAL: Negative [facility] Ketones [Presence] in Urine by Test strip 15 NORMAL: Negative [facility] Protein [Mass/volume] in Urine by Test strip 15 [facility] Nitrite [Presence] in Urine by Test strip NEG NORMAL: Negative [facility] BLOOD NEG NORMAL: Negative [facility] Leukocyte esterase [Presence] in Urine by Test strip NEG SHAUNA L: Negative [facility] Urobilinogen [Mass/volume] in Urine by Test strip NOR less lupe n 1.0 mg/dL [facility] MICROSCOPIC See Below [facility] ital WBC 1 - 3 NORMAL: NONE SEEN [facility] Erythrocytes [#/volume] in Urine by Test strip 0 - 1 NORMAL: NON E SEEN [facility] EPITHELIAL FEW NORMAL: NONE SEEN [facility] Crystals [type] in Urine sediment by Light microscopy See Below [facility] TRIPLE PHOS 3+ NORMAL: NONE SEEN A [facility] ID Date Data Source [id number] 12/20/2020 02:00:00 PM EST [facility] (Osmel Alvarez MD) Name Value Range Interpretation Code Description Data Maura rce(s) Supporting Document(s) Coronavirus Covid-19 Laboratory test result [facility] (Osmel Alvarez MD) First test? N Employed in healthcare? N ~Symptomatic as defined by CDC? Y Hospitalized? Y~Reside ID Date Data Source [id number] 12/20/2020 02:00:00 PM EST [facility] Name Value Range Interpretation Code Description Data Maura rce(s) Supporting Document(s) SARS coronavirus 2 RNA Not Detected [facility] This lab was ordered by [facility] and reported by [facility]. ID Date Data Source [id number] 12/22/2020 08:49:00 PM EST [facility] Name Value Range Interpretation Code Description Data Maura rce(s) Supporting Document(s) SARS-CoV-2, DAR Not Detected Not Detected [facility] This nucleic acid amplification test was developed and its performancecharacteristics determined by [facility]. Nucleic acidamplification tests include RT-PCR and TMA. [...] in this assay. ID Date Data Source [id number] 12/25/2020 06:20:00 PM EST [facility] Name Value Range Interpretation Code Description Data Maura rce(s) Supporting Document(s) Bacteria identified in Blood by Culture [facility] NO GROWTH AFTER 5 DAYS ID Date Data Source [id number] 12/20/2020 01:45:00 PM EST [facility] (Osmel Alvarez MD) Name Value Range Interpretation Code Description Data Maura rce(s) Supporting Document(s) Laboratory test finding (navigational concept) Laboratory test result [facility] (Osmel Alvarez MD) _CULTURE BLOOD_ { PRELIM TEST PERFORMED AT [address] [address] CLIA# [id number] SEE SCANNED REPORT ID Date Data Source [id number] 12/26/2020 12:56:00 PM EST [facility] Name Value Range Interpretation Code Description Data Maura rce(s) Supporting Document(s) [facility] BLOOD [facility] spital _CULTURE BLOOD_{ PRELIM TEST PERFORMED AT [address] [address] CLIA# [id number] SEE SCANNED REPORT ID Date Data Source [id number] 12/20/2020 01:39:00 PM EST [facility] (Osmel Alvarez MD) Name Value Range Interpretation Code Description Data Maura rce(s) Supporting Document(s) Laboratory test finding (navigational concept) Laboratory test result [facility] (Osmel Alvarez MD) _CULTURE BLOOD_ { PRELIM TEST PERFORMED AT [address] [address] CLIA# [id number] SEE SCANNED REPORT ID Date Data Source [id number] 12/26/2020 12:56:00 PM [facility] Name Value Range Interpretation Code Description Data Maura rce(s) Supporting Document(s) [facility] _CULTURE BLOOD_{ PRELIM TEST PERFORMED AT [address] [address] CLIA# [id number] SEE SCANNED REPORT ID Date Data Source [id number] 12/20/2020 11:52:00 AM EST [facility] (Osmel Alvarez MD) Name Value Range Interpretation Code Description Data Maura rce(s) Supporting Document(s) Laboratory test finding (navigational concept) Laboratory test result [facility] (Osmel Alvarez MD) First test?: N~Employed in healthcare?: N~Symptomatic as defined by CDC?: Y~Hospitalized?: N Laboratory test finding (navigational concept) Laboratory test result [facility] (Osmel Alvarez MD) First test?: N~Employed in healthcare?: N~Symptomatic as defined by CDC?: Y~Hospitalized?: N ID Date Data Source [id number] 12/20/2020 11:52:00 AM EST [facility] Name Value Range Interpretation Code Description Data Maura rce(s) Supporting Document(s) COVID19 Case rprt NOT DETECTED [facility] This lab was ordered by [facility]RE[facility] KIM and reported by [facility]. ID Date Data Source [id number] 12/20/2020 12:44:00 PM EST [facility] NOT DETECTEDNOT DETECTED{ PROC EDURAL CONTROL VALID [...] rce(s) Supporting Document(s) ID Date Data Source [id number] 12/20/2020 12:39:00 PM [facility] Name Value Range Interpretation Code Description Data Maura rce(s) Supporting Document(s) Influenza virus A Ag [Presence] in Nasopharynx by Immunoassa y NEGATIVE NORMAL: NEGATIVE [facility] Influenza virus B Ag [Presence] in Nasopharynx by Immunoassa y NEGATIVE NORMAL: NEGATIVE [facility] NEGATIVENEGATIVE PROCEDURAL CO NTROL VALID KIT LOT [...] other patient managementdecisions. ID Date Data Source [id number] 12/20/2020 01:03:00 PM [facility] Name Value Range Interpretation Code Description Data Maura rce(s) Supporting Document(s) Fibrin D-dimer FEU [Mass/volume] in Platelet poor plasma 2.90 ug /mL 0.27 - 0.50 H [facility] ID Date Data Source [id number] 12/20/2020 12:54:00 PM [facility] Name Value Range Interpretation Code Description Data Maura rce(s) Supporting Document(s) TROPONIN T <0.01 NG/ML 0.00 - 0.10 [facility] ospital TROPONIN T0.1 ng/ml Recommended as the c linical threshold value forTroponin T. ID Date Data Source [id number] 12/20/2020 12:49:00 PM [facility] Name Value Range Interpretation Code Description Data [facility] Supporting Document(s) CBC W/AUTOMATED DIFF [facility] COMPLETE BLOOD COUNT Leukocytes [#/volume] in Blood by Automated count 6.0 10^3/uL 4.2 - 1 1.0 [facility] Erythrocytes [#/volume] in Blood by Automated count 3.00 10^6/uL 4. 20 - 5.40 L [facility] Hemoglobin [Mass/volume] in Blood 10.3 g/dL 12.0 - 16.0 L [facility] Hematocrit [Volume Fraction] of Blood by Automated count 30.9 % 3 7.0 - 47.0 L [facility] Erythrocyte mean corpuscular volume [Entitic volume] b y Automated count 103.0 fL 81.0 - 101 H [facility] Erythrocyte mean corpuscular hemoglobin [Entitic mass] by Automated count 34.3 pg 27.0 - 34.0 H [facility] Erythrocyte mean corpuscular hemoglobin concentration [Mass/volume] by Automated count 33.3 g/dL 31.0 - 36.0 [facility] Erythrocyte distribution width [Ratio] by Automated count 14.7 % 11.5 - 14.5 H [facility] Platelets [#/volume] in Blood by Automated count 302 10^3/uL 150 - 45 0 [facility] Platelet mean volume [Entitic volume] in Blood by Automated count 8.9 fL 7.4 - 10.4 [facility] Neutrophils/100 leukocytes in Blood by Automated count 78.5 % 37. 0 - 80.0 [facility] Lymphocytes/100 leukocytes in Blood by Manual count 6.6 % 25.0 - 40.0 L [facility] Monocytes/100 leukocytes in Blood by Automated count 3.6 % 3.0 - 8.0 [facility] Eosinophils/100 leukocytes in Blood by Automated count 10.8 % 0.0 - 7.0 H [facility] Basophils/100 leukocytes in Blood by Automated count 0.2 % 0.0 - 2.5 [facility] %IG 0.3 % 0.0 - 0.0 [facility] %NRBC 0.0 % 0.0 - 0.0 [facility] al Neutrophils [#/volume] in Blood by Automated count 4.73 10^3/uL 2.00 - 6.90 [facility] Lymphocytes [#/volume] in Blood by Automated count 0.40 10^3/uL 0.60 - 3.40 L [facility] Monocytes [#/volume] in Blood by Automated count 0.22 10^3/uL 0.00 - 0.90 [facility] Eosinophils [#/volume] in Blood by Automated count 0.65 10^3/uL 0.00 - 0.70 [facility] Basophils [#/volume] in Blood by Automated count 0.01 10^3/uL 0.00 - 0.20 [facility] #IG 0.02 10^3/uL 0.00 - 0.10 [facility] #NRBC 0.00 10^3/uL 0.00 - 0.00 [facility] ospital MANUAL DIFF NOT INDICATED [facility] RBC MORPH NOT INDICATED [facility] spital ID Date Data Source [id number] 12/20/2020 12:46:00 PM EST [facility] Name Value Range Interpretation Code Description Data Maura rce(s) Supporting Document(s) COMPREHENSIVE METABOLIC PANEL [facility] COMPREHENSIVE METABOLIC PANEL Sodium [Moles/volume] in Serum or Plasma 133 mEq/L 134 - 153 L [facility] Potassium [Moles/volume] in Serum or Plasma 4.4 mEq/L 3.6 - 5.0 [facility] Chloride [Moles/volume] in Serum or Plasma 93 mEq/L 98 - 107 L [facility] Carbon dioxide, total [Moles/volume] in Serum or Plasma 33 MEQ/L 22 - 30 H [facility] Glucose [Mass/volume] in Serum or Plasma 102 MG/DL 70 - 99 H [facility] BUN 14 MG/DL 7 - 21 [facility] al Creatinine [Mass/volume] in Serum or Plasma 0.9 MG/DL 0.7 - 1.5 [facility] BUN/CREAT 16 8 - 27 [facility] Protein [Mass/volume] in Serum or Plasma 7.2 G/DL 6.3 - 8.2 [facility] Albumin [Mass/volume] in Serum or Plasma 3.4 G/DL 3.9 - 5.0 L [facility] Globulin [Mass/volume] in Serum by calculation 3.8 GM/DL 2.4 - 3.2 H [facility] A/G RATIO 0.9 0.8 - 2.0 [facility] Calcium [Mass/volume] in Serum or Plasma 8.9 MG/DL 8.4 - 10.2 [facility] Bilirubin.total [Mass/volume] in Serum or Plasma <0.7 MG/DL 0.2 - 1.3 [facility] Alkaline phosphatase [Enzymatic activity/volume] in Serum or Plasma 104 U/L 38 - 126 [facility] Aspartate aminotransferase [Enzymatic activity/volume] in Serum or Plasma 22 U/L 5 - 40 [facility] Alanine aminotransferase [Enzymatic activity/volume] in Seru m or Plasma 16 U/L 7 - 56 [facility] Anion gap 3 in Serum or Plasma 7.0 mmol/L 8.0 - 16.0 L [facility] AGE 55 yrs [facility] al NON-AA GFR >60 mL/min [facility] ital AFR AMER GFR >60 mL/min [facility] Male GFR In [...] >32 mL/min Normal ID Date Data Source [id number] 12/20/2020 12:46:00 PM [facility] Name Value Range Interpretation Code Description Data Maura rce(s) Supporting Document(s) BNP 755 PG/ML 0 - 125 H [facility] al ID Date Data Source [id number] 12/20/2020 12:18:00 PM [facility] Name Value Range Interpretation Code Description Data Maura rce(s) Supporting Document(s) Lactate [Moles/volume] in Serum or Plasma 1.9 MMOL/L 0.2 - 2.2 [facility] ID Date Data Source [id number] 12/11/2020 10:18:00 [place] [address] PHONE: [phone] FAX: [phone] Name .................. : JUANITO Daniels Acct Number.................. : [id number] ROOM. ................. : Number ................... : [id number] Stay type ............. : O/P Discharge Date......... ... : 12/08/20 Admit Date ......... : 12/08/20 Admit Phys .................... : MELANY NAVARRO Date of ....... : 1965 Family Phys ................... : SEQUEIRA Phone .................. : [phone] Age ................................ : 55 Film# .................. .:[id number] Sex ................................. : F Unsigned transcriptions are preliminary reports and do not represent a medical or legal document CHEST 2 VIEWS [id number] COMPLETE:12/08/20 12:44 KBO 0235 (REASON FOR CHEST: COUGH CHEST X-RAY: 2-VIEWS COMPARISON: 08/01/20 CLINICAL HISTORY: Cough. FINDINGS: There is continued left upper lobe and left perihilar mass, unchanged. The right lung and base of the left lung are clear. 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 Status post fusion of the thoracic spine using bilateral Gonzalez rods. IMPRESSION: Stable examination with left upper lobe and left perihilar mass. Electronically Reviewed and Signed By Duong Guerrero MD , 12/11/20 10:18, MRA Transcribe Initials: REYES , Transcribe Date: 12/09/20 00:46, Dictation Date: Copy for: MELANY TAVAREZ via fax Copy for: [address] [facility] REC Page 1 of 1 Name Value Range Interpretation Code Description Data Maura rce(s) Supporting Document(s) ID Date Data Source [id number] 12/04/2020 01:05:[address] 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 DISCHARGED FROM [facility] ON 11/29/2020. BILATERAL COVID PNEUMONIA. FEELING [...] exertion Details: FINISHED LEVAQUIN. HAS F/U WITH [employer] IN A COUPLE WEEKS. O2 CONTINUOUS AT [...] Acute upper respiratory infection, unspecified SNOMED Code(s): 155804219 Category: Medical Plan - Gail Reyes NP: HAS F/U APPT WITH [employer] IN A COUPLE WEEKS.. CONT. CURRENT MEDS. [...] rce(s) Supporting Document(s) ID Date Data Source [id number] 11/28/2020 07:36:00 AM EST [facility] Name Value Range Interpretation Code Description Data Maura rce(s) Supporting Document(s) COMPREHENSIVE METABOLIC PANEL [facility] COMPREHENSIVE METABOLIC PANEL Sodium [Moles/volume] in Serum or Plasma 135 mEq/L 134 - 153 [facility] Potassium [Moles/volume] in Serum or Plasma 5.0 mEq/L 3.6 - 5.0 [facility] Chloride [Moles/volume] in Serum or Plasma 100 mEq/L 98 - 107 [facility] Carbon dioxide, total [Moles/volume] in Serum or Plasma 27 MEQ/L 22 - 30 [facility] Glucose [Mass/volume] in Serum or Plasma 166 MG/DL 70 - 99 H [facility] BUN 21 MG/DL 7 - 21 [facility] al Creatinine [Mass/volume] in Serum or Plasma 0.9 MG/DL 0.7 - 1.5 [facility] BUN/CREAT 23 8 - 27 [facility] al Protein [Mass/volume] in Serum or Plasma 6.0 G/DL 6.3 - 8.2 L [facility] Albumin [Mass/volume] in Serum or Plasma 3.5 G/DL 3.9 - 5.0 L [facility] Globulin [Mass/volume] in Serum by calculation 2.5 GM/DL 2.4 - 3.2 [facility] A/G RATIO 1.4 0.8 - 2.0 [facility] Calcium [Mass/volume] in Serum or Plasma 8.3 MG/DL 8.4 - 10.2 L [facility] Bilirubin.total [Mass/volume] in Serum or Plasma <0.7 MG/DL 0.2 - 1.3 [facility] Alkaline phosphatase [Enzymatic activity/volume] in Serum or Plasma 75 U/L 38 - 126 [facility] Aspartate aminotransferase [Enzymatic activity/volume] in Serum or Plasma 21 U/L 5 - 40 [facility] Alanine aminotransferase [Enzymatic activity/volume] in Seru m or Plasma 23 U/L 7 - 56 [facility] Anion gap 3 in Serum or Plasma 8.0 mmol/L 8.0 - 16.0 [facility] AGE 55 yrs [facility] al NON-AA GFR >60 mL/min [facility] ital AFR AMER GFR >60 mL/min [facility] spital Male GFR In [...] >32 mL/min Normal ID Date Data Source [id number] 11/28/2020 07:29:00 AM EST [facility] Name Value Range Interpretation Code Description Data Maura rce(s) Supporting Document(s) CBC W/AUTOMATED DIFF [facility] COMPLETE BLOOD COUNT Leukocytes [#/volume] in Blood by Automated count 7.7 10^3/uL 4.2 - 1 1.0 [facility] Erythrocytes [#/volume] in Blood by Automated count 3.29 10^6/uL 4. 20 - 5.40 L [facility] Hemoglobin [Mass/volume] in Blood 11.4 g/dL 12.0 - 16.0 L [facility] Hematocrit [Volume Fraction] of Blood by Automated count 33.8 % 3 7.0 - 47.0 L [facility] Erythrocyte mean corpuscular volume [Entitic volume] b y Automated count 102.7 fL 81.0 - 101 H [facility] Erythrocyte mean corpuscular hemoglobin [Entitic mass] by Automated count 34.7 pg 27.0 - 34.0 H [facility] Erythrocyte mean corpuscular hemoglobin concentration [Mass/volume] by Automated count 33.7 g/dL 31.0 - 36.0 [facility] Erythrocyte distribution width [Ratio] by Automated count 13.3 % 11.5 - 14.5 [facility] Platelets [#/volume] in Blood by Automated count 265 10^3/uL 150 - 45 0 [facility] Platelet mean volume [Entitic volume] in Blood by Automated count 9.8 fL 7.4 - 10.4 [facility] Neutrophils/100 leukocytes in Blood by Automated count 85.6 % 37. 0 - 80.0 H [facility] Lymphocytes/100 leukocytes in Blood by Manual count 5.3 % 25.0 - 40.0 L [facility] Monocytes/100 leukocytes in Blood by Automated count 7.1 % 3.0 - 8.0 [facility] Eosinophils/100 leukocytes in Blood by Automated count 0.0 % 0.0 - 7.0 [facility] Basophils/100 leukocytes in Blood by Automated count 0.3 % 0.0 - 2.5 [facility] %IG 1.7 % 0.0 - 0.0 H [facility] al %NRBC 0.0 % 0.0 - 0.0 [facility] [#/volume] in Blood by Automated count 6.60 10^3/uL 2.00 - 6.90 [facility] Lymphocytes [#/volume] in Blood by Automated count 0.41 10^3/uL 0.60 - 3.40 L [facility] Monocytes [#/volume] in Blood by Automated count 0.55 10^3/uL 0.00 - 0.90 [facility] Eosinophils [#/volume] in Blood by Automated count 0.00 10^3/uL 0.00 - 0.70 [facility] Basophils [#/volume] in Blood by Automated count 0.02 10^3/uL 0.00 - 0.20 [facility] #IG 0.13 10^3/uL 0.00 - 0.10 H [facility] ospital #NRBC 0.00 10^3/uL 0.00 - 0.00 [facility] MANUAL DIFF NOT INDICATED [facility] RBC MORPH NOT INDICATED [facility] spital ID Date Data Source [id number] 11/27/2020 12:32:00 PM EST [facility] [address] [place] [address] PHONE: [phone] FAX: [phone] Name .................. : JUANITO Daniels Acct Number.................. : [id number] ROOM. ................. : [facility] MR Number ................... : [id number] Stay type ............. : I/P Discharge Date......... ... : Admit Date ......... : 11/24/20 Admit Phys .................... : DOMENIC Date of ....... : 1965 Family Phys ................... : [employer] Phone .................. : [phone] Age ................................ : 55 Film# .................. .:[id number] Sex ................................. : F Unsigned transcriptions are preliminary reports and do not represent a medical or legal document CT THORAX W/O CONTRAST 29096 COMPLETE:11/24/20 14:55 RLB 2725 Reason(s): worsening L [...] dose: 560.3 mGycm Page 1 of 2 [facility] [address] [place] [address] PHONE: [phone] FAX: [phone] Name .................. : JUANITO Daniels Acct Number.................. : [id number] ROOM. ................. : CCU1C MR Number ................... : [id number] Stay type ............. : I/P Discharge Date......... ... : Admit Date ......... : 11/24/20 Admit Phys .................... : DOMENIC Date of ....... : 1965 Family Phys ................... : SEQUEIRA Phone .................. : [phone] Age .. .............................. : 55 Film# .................. .:[id number] Sex ................................. : F Unsigned transcriptions are preliminary reports and do not represent a medical or legal document CT THORAX W/O CONTRAST 91650 COMPLETE:11/24/20 14:55 RLB 2725 Reason(s): worsening L air space on CXR, hx lung ca and covid 19 pos Electronically Reviewed and Signed By Dudley Bush MD , 11/27/20 12:32, MYNOR Transcribe Initials: DZ , Transcribe Date: 11/25/20 01:37, Dictation Date: Copy for: [facility] Copy for: [address] [facility] REC Page 2 of 2 Name Value Range Interpretation Code Description Data Maura rce(s) Supporting Document(s) ID Date Data Source [id number] 11/27/2020 12:31:00 PM [facility] [address] [place] [address] PHONE: [phone] FAX: [phone] Name .................. : JUANITO ROMAN Jeremiah Acct Number.................. : [id number] ROOM. ................. : TR-06 MR Number ................... : [id number] Stay type ............. : E/R Discharge Date......... ... : Admit Date ......... : 11/24/20 Admit Phys .................... : VALERIA SILVIO Date of ....... : 1965 Family Phys ................... : REGINE GAIL Phone .................. : [phone] Age ................................ : 55 Film# .................. .:[id number] Sex ................................. 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 Posterior thoracic stabilization hardware. IMPRESSION: Worsening left air space disease with complete whiteout of the left hemithorax. Underlying mass or infiltrate not excluded. ____ Electronically Reviewed and Signed By Dudley Bush MD , 11/27/20 12:31, MYNOR Transcribe Initials: SSR, Transcribe Date: 11/24/20 14:19, Dictation Date: Copy for: [facility] Copy for: [address] [facility] REC Page 1 of 1 Name Value Range Interpretation Code Description Data Maura rce(s) Supporting Document(s) ID Date Data Source [id number] 11/27/2020 08:45:00 AM [facility] Name Value Range Interpretation Code Description Data Maura rce(s) Supporting Document(s) Magnesium [Mass/volume] in Serum or Plasma 1.6 MG/DL 1.7 - 2.2 L [facility] ID Date Data Source [id number] 11/27/2020 07:42:00 AM [facility] Name Value Range Interpretation Code Description Data Maura rce(s) Supporting Document(s) CBC W/AUTOMATED DIFF [facility] COMPLETE BLOOD COUNT Leukocytes [#/volume] in Blood by Automated count 7.5 10^3/uL 4.2 - 1 1.0 [facility] Erythrocytes [#/volume] in Blood by Automated count 3.26 10^6/uL 4. 20 - 5.40 L [facility] Hemoglobin [Mass/volume] in Blood 11.4 g/dL 12.0 - 16.0 L [facility] Hematocrit [Volume Fraction] of Blood by Automated count 33.9 % 3 7.0 - 47.0 L [facility] Erythrocyte mean corpuscular volume [Entitic volume] b y Automated count 104.0 fL 81.0 - 101 H [facility] Erythrocyte mean corpuscular hemoglobin [Entitic mass] by Automated count 35.0 pg 27.0 - 34.0 H [facility] Erythrocyte mean corpuscular hemoglobin concentration [Mass/volume] by Automated count 33.6 g/dL 31.0 - 36.0 [facility] Erythrocyte distribution width [Ratio] by Automated count 13.6 % 11.5 - 14.5 [facility] Platelets [#/volume] in Blood by Automated count 254 10^3/uL 150 - 45 0 [facility] Platelet mean volume [Entitic volume] in Blood by Automated count 9.8 fL 7.4 - 10.4 [facility] Neutrophils/100 leukocytes in Blood by Automated count 83.9 % 37. 0 - 80.0 H [facility] Lymphocytes/100 leukocytes in Blood by Manual count 6.3 % 25.0 - 40.0 L [facility] Monocytes/100 leukocytes in Blood by Automated count 7.6 % 3.0 - 8.0 [facility] Eosinophils/100 leukocytes in Blood by Automated count 0.0 % 0.0 - 7.0 [facility] Basophils/100 leukocytes in Blood by Automated count 0.3 % 0.0 - 2.5 [facility] %IG 1.9 % 0.0 - 0.0 [facility] %[facility] 0.0 % 0.0 - 0.0 [facility] al Neutrophils [#/volume] in Blood by Automated count 6.30 10^3/uL 2.00 - 6.90 [facility] Lymphocytes [#/volume] in Blood by Automated count 0.47 10^3/uL 0.60 - 3.40 L [facility] Monocytes [#/volume] in Blood by Automated count 0.57 10^3/uL 0.00 - 0.90 [facility] Eosinophils [#/volume] in Blood by Automated count 0.00 10^3/uL 0.00 - 0.70 [facility] Basophils [#/volume] in Blood by Automated count 0.02 10^3/uL 0.00 - 0.20 [facility] #IG 0.14 10^3/uL 0.00 - 0.10 H [facility] H ospital #NRBC 0.00 10^3/uL 0.00 - 0.00 [facility] ospital MANUAL DIFF NOT INDICATED [facility] RBC MORPH NOT INDICATED [facility] spital ID Date Data Source [id number] 11/27/2020 07:35:00 AM EST [facility] Name Value Range Interpretation Code Description Data Maura rce(s) Supporting Document(s) COMPREHENSIVE METABOLIC PANEL [facility] COMPREHENSIVE METABOLIC PANEL Sodium [Moles/volume] in Serum or Plasma 137 mEq/L 134 - 153 [facility] Potassium [Moles/volume] in Serum or Plasma 5.0 mEq/L 3.6 - 5.0 [facility] Chloride [Moles/volume] in Serum or Plasma 102 mEq/L 98 - 107 [facility] Carbon dioxide, total [Moles/volume] in Serum or Plasma 27 MEQ/L 22 - 30 [facility] Glucose [Mass/volume] in Serum or Plasma 149 MG/DL 70 - 99 H [facility] BUN 20 MG/DL 7 - 21 [facility] Creatinine [Mass/volume] in Serum or Plasma 0.9 MG/DL 0.7 - 1.5 [facility] BUN/CREAT 22 8 - 27 [facility] al Protein [Mass/volume] in Serum or Plasma 5.9 G/DL 6.3 - 8.2 L [facility] Albumin [Mass/volume] in Serum or Plasma 3.6 G/DL 3.9 - 5.0 L [facility] Globulin [Mass/volume] in Serum by calculation 2.3 GM/DL 2.4 - 3.2 L [facility] A/G RATIO 1.6 0.8 - 2.0 [facility] al Calcium [Mass/volume] in Serum or Plasma 8.1 MG/DL 8.4 - 10.2 L [facility] Bilirubin.total [Mass/volume] in Serum or Plasma <0.7 MG/DL 0.2 - 1.3 [facility] Alkaline phosphatase [Enzymatic activity/volume] in Serum or Plasma 78 U/L 38 - 126 [facility] Aspartate aminotransferase [Enzymatic activity/volume] in Serum or Plasma 21 U/L 5 - 40 [facility] Alanine aminotransferase [Enzymatic activity/volume] in Seru m or Plasma 18 U/L 7 - 56 [facility] Anion gap 3 in Serum or Plasma 8.0 mmol/L 8.0 - 16.0 [facility] AGE 55 yrs [facility] al NON-AA GFR >60 mL/min [facility] ital AFR AMER GFR >60 mL/min [facility] Ho spital Male GFR In [...] >32 mL/min Normal ID Date Data Source [id number] 11/26/2020 09:43:00 AM EST [facility] Name Value Range Interpretation Code Description Data Maura rce(s) Supporting Document(s) COMPREHENSIVE METABOLIC PANEL [facility] COMPREHENSIVE METABOLIC PANEL Sodium [Moles/volume] in Serum or Plasma 136 mEq/L 134 - 153 [facility] Potassium [Moles/volume] in Serum or Plasma 4.2 mEq/L 3.6 - 5.0 [facility] Chloride [Moles/volume] in Serum or Plasma 100 mEq/L 98 - 107 [facility] Carbon dioxide, total [Moles/volume] in Serum or Plasma 24 MEQ/L 22 - 30 [facility] Glucose [Mass/volume] in Serum or Plasma 228 MG/DL 70 - 99 H [facility] BUN 16 MG/DL 7 - 21 [facility] Creatinine [Mass/volume] in Serum or Plasma 0.9 MG/DL 0.7 - 1.5 [facility] BUN/CREAT 18 8 - 27 [facility] Protein [Mass/volume] in Serum or Plasma 6.4 G/DL 6.3 - 8.2 [facility] Albumin [Mass/volume] in Serum or Plasma 3.9 G/DL 3.9 - 5.0 [facility] Globulin [Mass/volume] in Serum by calculation 2.5 GM/DL 2.4 - 3.2 [facility] A/G RATIO 1.6 0.8 - 2.0 [facility] Calcium [Mass/volume] in Serum or Plasma 8.1 MG/DL 8.4 - 10.2 L [facility] Bilirubin.total [Mass/volume] in Serum or Plasma <0.7 MG/DL 0.2 - 1.3 [facility] Alkaline phosphatase [Enzymatic activity/volume] in Serum or Plasma 84 U/L 38 - 126 [facility] Aspartate aminotransferase [Enzymatic activity/volume] in Serum or Plasma 19 U/L 5 - 40 [facility] Alanine aminotransferase [Enzymatic activity/volume] in Seru m or Plasma 15 U/L 7 - 56 [facility] Anion gap 3 in Serum or Plasma 12.0 mmol/L 8.0 - 16.0 [facility] AGE 55 yrs [facility] al NON-AA GFR >60 mL/min [facility] ital AFR AMER GFR >60 mL/min [facility] Ho spital Male GFR In [...] >32 mL/min Normal ID Date Data Source [id number] 11/26/2020 09:32:00 AM [facility] Name Value Range Interpretation Code Description Data Maura rce(s) Supporting Document(s) CBC NO DIFF [facility] COMPLETE BLOOD COUNT Leukocytes [#/volume] in Blood by Automated count 6.1 10^3/uL 4.2 - 1 1.0 [facility] Erythrocytes [#/volume] in Blood by Automated count 3.36 10^6/uL 4. 20 - 5.40 L [facility] Hemoglobin [Mass/volume] in Blood 11.9 g/dL 12.0 - 16.0 L [facility] Hematocrit [Volume Fraction] of Blood by Automated count 34.5 % 3 7.0 - 47.0 L [facility] Erythrocyte mean corpuscular volume [Entitic volume] b y Automated count 102.7 fL 81.0 - 101 H [facility] Erythrocyte mean corpuscular hemoglobin [Entitic mass] by Automated count 35.4 pg 27.0 - 34.0 H [facility] Erythrocyte mean corpuscular hemoglobin concentration [Mass/volume] by Automated count 34.5 g/dL 31.0 - 36.0 [facility] Erythrocyte distribution width [Ratio] by Automated count 13.6 % 11.5 - 14.5 [facility] Platelets [#/volume] in Blood by Automated count 250 10^3/uL 150 - 45 0 [facility] Platelet mean volume [Entitic volume] in Blood by Automated count 9.5 fL 7.4 - 10.4 [facility] ID Date Data Source [id number] 11/25/2020 01:36:00 [place] [address] RESPIRATORY CARE REPORT ==== ---------NAME------- NUMBER SEX AGE ADMIT DISC. XRAY# F/C CYNDY Daniels [id number] F 55 11/24/20 [id number] B1 I/P DATE OF : 1965 M/R# [id number] PH#: [phone] RM CCU1C LOCATION: [place] [id number] COMPLE TE:11/24/20 14:41 [place] [id number] PHYSICIAN: DOMENIC SHAW SILVIO Name Value Range Interpretation Code Description Data Maura rce(s) Supporting Document(s) ID Date Data Source [id number] 11/25/2020 11:38:00 AM [facility] Name Value Range Interpretation Code Description Data Maura rce(s) Supporting Document(s) C reactive protein [Mass/volume] in Serum or Plasma by High sensitivity method 100.94 MG/L 1.00 - 3.00 H [facility] CDC/S HS-CRP CUT-OFF: RELATIVE RISK: <1.0 mg/L Low 1.0 - 3.0 mg/L Average >3.0 mg/L High Optimally, the average of HS-CRP results repeated two weeks apart should be used for risk assessment. ID Date Data Source [id number] 11/25/2020 11:19:00 AM [facility] Name Value Range Interpretation Code Description Data Maura rce(s) Supporting Document(s) Ferritin [Mass/volume] in Serum or Plasma 549.5 ng/mL 3.0 - 105 H [facility] ID Date Data Source [id number] 11/25/2020 11:15:00 AM [facility] Value Range Interpretation Code Description Data Maura rce(s) Supporting Document(s) Lactate dehydrogenase [Enzymatic activity/volume] in Serum o r Plasma 221 U/L 135 - 214 H [facility] ID Date Data Source [id number] 11/25/2020 10:56:00 AM [facility] Value Range Interpretation Code Description Data Maura rce(s) Supporting Document(s) Fibrinogen [Mass/volume] in Platelet poor plasma by Co agulation assay 610.0 mg/dL 179 - 506 H [facility] ID Date Data Source [id number] 11/25/2020 09:13:00 AM EST [facility] Name Value Range Interpretation Code Description Data Maura rce(s) Supporting Document(s) COMPREHENSIVE METABOLIC PANEL [facility] COMPREHENSIVE METABOLIC PANEL Sodium [Moles/volume] in Serum or Plasma 137 mEq/L 134 - 153 [facility] Potassium [Moles/volume] in Serum or Plasma 4.2 mEq/L 3.6 - 5.0 [facility] Chloride [Moles/volume] in Serum or Plasma 99 mEq/L 98 - 107 [facility] Carbon dioxide, total [Moles/volume] in Serum or Plasma 26 MEQ/L 22 - 30 [facility] Glucose [Mass/volume] in Serum or Plasma 138 MG/DL 70 - 99 H [facility] BUN 11 MG/DL 7 - 21 [facility] al Creatinine [Mass/volume] in Serum or Plasma 0.9 MG/DL 0.7 - 1.5 [facility] BUN/CREAT 12 8 - 27 [facility] Protein [Mass/volume] in Serum or Plasma 6.1 G/DL 6.3 - 8.2 L [facility] Albumin [Mass/volume] in Serum or Plasma 3.6 G/DL 3.9 - 5.0 L [facility] Globulin [Mass/volume] in Serum by calculation 2.5 GM/DL 2.4 - 3.2 [facility] A/G RATIO 1.4 0.8 - 2.0 [facility] Calcium [Mass/volume] in Serum or Plasma 8.0 MG/DL 8.4 - 10.2 L [facility] Bilirubin.total [Mass/volume] in Serum or Plasma <0.7 MG/DL 0.2 - 1.3 [facility] Alkaline phosphatase [Enzymatic activity/volume] in Serum or Plasma 99 U/L 38 - 126 [facility] Aspartate aminotransferase [Enzymatic activity/volume] in Serum or Plasma 26 U/L 5 - 40 [facility] Alanine aminotransferase [Enzymatic activity/volume] in Seru m or Plasma 18 U/L 7 - 56 [facility] Anion gap 3 in Serum or Plasma 12.0 mmol/L 8.0 - 16.0 [facility] AGE 55 yrs [facility] NON-AA GFR >60 mL/min [facility]osp ital AFR AMER GFR >60 mL/min [facility] Ho spital Male GFR In [...] >32 mL/min Normal ID Date Data Source [id number] 11/25/2020 09:13:00 AM [facility] Name Value Range Interpretation Code Description Data Maura rce(s) Supporting Document(s) Magnesium [Mass/volume] in Serum or Plasma 1.5 MG/DL 1.7 - 2.2 L [facility] ID Date Data Source [id number] 11/25/2020 08:49:00 AM [facility] Name Value Range Interpretation Code Description Data Maura rce(s) Supporting Document(s) CBC W/AUTOMATED DIFF [facility] COMPLETE BLOOD COUNT Leukocytes [#/volume] in Blood by Automated count 2.5 10^3/uL 4.2 - 1 1.0 L [facility] Erythrocytes [#/volume] in Blood by Automated count 3.41 10^6/uL 4. 20 - 5.40 L [facility] Hemoglobin [Mass/volume] in Blood 12.0 g/dL 12.0 - 16.0 [facility] Hematocrit [Volume Fraction] of Blood by Automated count 34.9 % 3 7.0 - 47.0 L [facility] Erythrocyte mean corpuscular volume [Entitic volume] b y Automated count 102.3 fL 81.0 - 101 H [facility] Erythrocyte mean corpuscular hemoglobin [Entitic mass] by Automated count 35.2 pg 27.0 - 34.0 H [facility] Erythrocyte mean corpuscular hemoglobin concentration [Mass/volume] by Automated count 34.4 g/dL 31.0 - 36.0 [facility] Erythrocyte distribution width [Ratio] by Automated count 13.4 % 11.5 - 14.5 [facility] Platelets [#/volume] in Blood by Automated count 204 10^3/uL 150 - 45 0 [facility] Platelet mean volume [Entitic volume] in Blood by Automated count 9.4 fL 7.4 - 10.4 [facility] Neutrophils/100 leukocytes in Blood by Automated count 70.7 % 37. 0 - 80.0 [facility] Lymphocytes/100 leukocytes in Blood by Manual count 18.5 % 25.0 - 40.0 L [facility] Monocytes/100 leukocytes in Blood by Automated count 10.8 % 3.0 - 8.0 H [facility] Eosinophils/100 leukocytes in Blood by Automated count 0.0 % 0.0 - 7.0 [facility] Basophils/100 leukocytes in Blood by Automated count 0.0 % 0.0 - 2.5 [facility] %IG 0.0 % 0.0 - 0.0 [facility] %[facility]BC 0.0 % 0.0 - 0.0 [facility] al Neutrophils [#/volume] in Blood by Automated count 1.76 10^3/uL 2.00 - 6.90 L [facility] Lymphocytes [#/volume] in Blood by Automated count 0.46 10^3/uL 0.60 - 3.40 L [facility] Monocytes [#/volume] in Blood by Automated count 0.27 10^3/uL 0.00 - 0.90 [facility] Eosinophils [#/volume] in Blood by Automated count 0.00 10^3/uL 0.00 - 0.70 [facility] Basophils [#/volume] in Blood by Automated count 0.00 10^3/uL 0.00 - 0.20 [facility] #IG 0.00 10^3/uL 0.00 - 0.10 [facility] H ospital #NRBC 0.00 10^3/uL 0.00 - 0.00 [facility] H ospital MANUAL DIFF NOT INDICATED [facility] RBC MORPH NOT INDICATED [facility] Ho spital ID Date Data Source [id number] 11/24/2020 10:55:00 AM EST [facility] 1 OrderSheet [facility] Emergency Department [address] [place] [address] Phone #: ext- [phone] 11/24/2020 10:55 Patient: CHANTALE SOLOMON Sex: F : 1965 Age: 55yWEIGHT:81.6 kg (S) HEIGHT:60 inches (S) BMI:35.1ALLERGIES: Penicillins, SeafoodCHIEF COMPLAINT: dyspneaDIAGNOSIS: Pneumonia, Malignant tumor of lungLAB ORDERSOrder Description Priority Entered Acknowledged InitialedCulture, Sputum STAT 11:29 11/24/2020 11:29 Lakeshia Asher Jennifer Jennifer R.N. R.NKellen; Verbal order per; Darwin Shaw PAInfluenza Nasal A B STAT 11:29 11/24/2020 11:29 Lakeshia Asher Jennifer Jennifer R.N. RKellenNKellen; Verbal order per; Darwin Shaw PABlood Culture STAT 11:32 11/24/2020 11:33 onur Asher0kareem X2 (Sched Darwin LOPEZ; Meghann Gallagher11:32 11/24/2020) Blood Culture STAT 11:32 11/24/2020 11:33 Lakeshiaq10m X2 (Sched Darwin LOPEZ; Meghann Gallagher11:42 11/24/2020)BNP [...] 11/24/2020 Ack'd: 11:33 12:50 Sushil Carmona OrderSheet [facility] Emergency Department [address] [place] [address] Phone #: ext- [phone] 11/24/2020 10:55 Patient: CHANTALE SOLOMON Sex: F : 1965 Age: 55yCatch) Darwin LOPEZ; Meghann Asher R.N. RKellenNKellenVenous Blood Gas STAT 11:32 11/24/2020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 PHONE: [phone] FAX: [phone] Name .................. : JUANITO Daniels Acct Number.................. : [id number] ROOM. ................. : Number ................... : [id number] Stay type ............. : O/P Discharge Date......... ... : 10/12/20 Admit Date ......... : 10/12/20 Admit Phys .................... : MELANY WAJ Date of ....... : 1965 Family Phys ................... : SEQUEIRA Phone .................. : [phone] Age ................................ : 55 Film# .................. .:[id number] Sex ................................. : F Unsigned transcriptions are preliminary reports and do not represent a medical or legal document US RENAL LIMITED [id number] COMPLETE:10/12/20 09:10 KNB 83040 (PROCEDURE REASON ACUTE KIDNEY FAILURE RENAL ULTRASOUND, [...] By Everett Jimenez MD , 10/13/20 14:52, KGG Transcribe Initials: SSR, Transcribe Date: 10/12/20 13:26, Dictation Date: Copy for: MELANY TAVAREZ via fax Copy for: [address] [place] [address] REC Page 1 of 1 Name Value Range Interpretation Code Description Data Maura rce(s) Supporting Document(s) ID Date Data Source [id number] 10/02/2020 09:55:00 [place] [address] RESPIRATORY CARE REPORT ==== ---------NAME------- NUMBER SEX AGE ADMIT DISC. XRAY# F/C AUGUSTOJUSTYN Daniels [id number] F [id number] 09/27/20 09/28/20 [id number] O/P DATE OF : 1965 M/R# [id number] #: [id number] 101-1 LOCATION: [place] [id number] COMP LETE:09/28/20 02:12 T 48523 PHYSICIAN: KIM Fox Name Value Range Interpretation Code Description Data Maura rce(s) Supporting Document(s) ID Date Data Source [id number] 10/02/2020 10:51:00 AM EST [facility] [address] [place] [address] PHONE: [phone] FAX: [phone] Name .................. : JUANITO Daniels Acct Number.................. : [id number] ROOM. ................. : 101-1 MR Number ................... : [id number] Stay type ............. : O/P Discharge Date......... ... : Admit Date ......... : 09/27/20 Admit Phys .................... : KIM MENDEZ Date of ....... : 1965 Family Phys ................... : REGINE GAIL Phone .................. : [phone] Age ................................ : 55 Film# .................. .:[id number] Sex ................................. : F Unsigned transcriptions are preliminary reports and do not represent a medical or legal document CT HEAD(STROKE PROTOCOL) W/O 95255 COMPLETE:09/27/20 19:23 KJE 83325 Reason(s): blurry vision on and off, on [...] By Jimmy Ashby M.D. , 10/02/20 10:51, [facility] Transcribe Initials: REYES , Transcribe Date: 09/28/20 00:50, Dictation Date: Copy for: EMERGENCY DEPT via [email or web address] Copy for: 710 MED REC DISCHARGED Page 1 of 1 Name Value Range Interpretation Code Description Data Maura rce(s) Supporting Document(s) ID Date Data Source [id number] 10/02/2020 10:51:00 AM [facility] [address] [place] [address] PHONE: [phone] FAX: [phone] Name .................. : SOLOMON CHANTALE Jeremiah Acct Number.................. : [id number] ROOM. ................. : 101-1 MR Number ................... : [id number] Stay type ............. : O/P Discharge Date......... ... : Admit Date ......... : 09/27/20 Admit Phys .................... : KIM VANESSA Date of ....... : 1965 Family Phys ................... : SEQUEIRA Phone .................. : [phone] Age ................................ : 55 Film# .................. .:[id number] Sex ................................. : F Unsigned transcriptions are preliminary reports and do not represent a medical or legal document CHEST PORTABLE [id number] COMPLETE:09/27/20 19:23 [facility] 46[address] Reason(s): TIA PORTABLE CHEST X-RAY: INDICATION: TIA [...] By Jimmy Ashby M.D. , 10/02/20 10:51, [facility] Transcribe Initials: REYES , Transcribe Date: 09/28/20 00:46, Dictation Date: Copy for: EMERGENCY DEPT via modem Copy for: 710 MED REC DISCHARGED Page 1 of 1 Name Value Range Interpretation Code Description Data Maura rce(s) Supporting Document(s) ID Date Data Source [id number] 10/02/2020 10:48:00 AM [facility] [address] [place] [address] PHONE: [phone] FAX: [phone] Name .................. : JUANITO Daniels Acct Number.................. : [id number] ROOM. ................. : 101-1 MR Number ................... : [id number] Stay type ............. : O/P Discharge Date......... ... : Admit Date ......... : 09/27/20 Admit Phys .................... : KIM VANESSA Date of ....... : 1965 Family Phys ................... : [employer] Phone .................. : [phone] Age ................................ : 55 Film# .................. .:[id number] Sex ................................. : F Unsigned transcriptions are preliminary reports and do not represent a medical or legal document CAROTID [id number] COMPLETE:09/27/20 20:58 44135 Reason(s): TIA/CVA CAROTID DOPPLER ULTRASOUND: INDICATION: TIA. [...] rce(s) Supporting Document(s) ID Date Data Source [id number] 09/28/2020 06:50:00 [place] [address] HISTORY AND PHYSICALNAME: JUANITO Daniels ROOM#: 101-1DATE OF : 1965 MR#: [id number] PHYS: Osmel Alvarez MD, PC DATE: 09/27/20CHIEF [...] pulmonary emboli 4. History of DVT [address] [place] [address] HISTORY AND PHYSICALNAME: JUANITO Daniels ROOM#: [facility]1DATE OF : 1965 MR#: [id number] PHYS: Osmel Alvarez MD, DATE: 09/27/20 5. History of atrial fibrillation, [...] Psychological: No anxiety,depression or suicidal ideation. [address] [place] [address] HISTORY AND PHYSICALNAME: JUANITO Daniels ROOM#: 101-1DATE OF : 1965 MR#: [id number] PHYS: Osmel Alvarez MD, PC DATE: 09/27/20PHYSICAL [...] rce(s) Supporting Document(s) ID Date Data Source [id number] 10/01/2020 11:14:00 [place] [address] DISCHARGE SUMMARYNAME: JUANITO Daniels ROOM#: 101-1DATE OF : 1965 MR#: [id number] PHYS: Osmel Alvarez MD, PC DATE: 09/27/20 [...] was up ambulating without difficulty and on [id number], was discharged home in stable condition.DISCHARGE DIAGNOSIS:1. [...] p.r.n. shortness of breath or wheeze [address] [place] [address] DISCHARGE SUMMARYNAME: JUANITO Daniels ROOM#: 101-1DATE OF : 1965 MR#: [id number] PHYS: Osmel Alvarez MD, PC DATE: 09/27/20 DISCHARGED: 09/28/20 3. Bystolic 5 [...] rce(s) Supporting Document(s) ID Date Data Source [id number] 09/28/2020 08:59:00 AM EST [facility] (Osmel Alvarez MD) Name Value Range Interpretation Code Description Data Maura rce(s) Supporting Document(s) Troponin T.cardiac [Mass/volume] in Serum or Plasma Laborato ry test result 0.00-0.10 [facility] (Osmel Alvarez MD) TROPONIN T 0.1 ng/ml Recommended as the clinical th reshold value for Troponin T. ID Date Data Source [id number] 09/28/2020 09:27:00 AM EST [facility] Name Value Range Interpretation Code Description Data Maura rce(s) Supporting Document(s) TROPONIN T <0.01 NG/ML 0.00 - 0.10 [facility] ospital TROPONIN T0.1 ng/ml Recommended as the c linical threshold value forTroponin T. ID Date Data Source [id number] 09/28/2020 06:30:00 AM EST [facility] (Osmel Alvarez MD) Name Value Range Interpretation Code Description Data Maura rce(s) Supporting Document(s) Magnesium [Mass/volume] in Serum or Plasma 1.5 mg/dL 1.7-2.2 Belo w low normal [facility] (Osmel Alvarez MD) ID Date Data Source [id number] 09/28/2020 06:30:00 AM EST [facility] (Osmel Alvarez MD) Name Value Range Interpretation Code Description Data Maura rce(s) Supporting Document(s) Laboratory test finding (navigational concept) Laboratory test result [facility] (Osmel Alvarez MD) COMPREHENSIVE METABOLIC PANEL Laboratory test finding (navigational concept) 138 meq/L 134-153 [facility] (Osmel Alvarez MD) Laboratory test finding (navigational concept) 4.7 meq/L 3.6-5.0 [facility] (Osmel Alvarez MD) Laboratory test finding (navigational concept) 99 meq/L [...] >32 mL/min Normal ID Date Data Source [id number] 09/28/2020 06:30:00 AM EST [facility] (Osmel Alvarez MD) Name Value Range Interpretation Code Description Data Maura rce(s) Supporting Document(s) Laboratory test finding (navigational concept) Laboratory test result [facility] (Osmel Alvarez MD) COMPLETE BLOOD COUNT Laboratory test finding (navigational concept) 4.8 10^3/uL 4.2-11.0 [facility] (Osmel Alvarez MD) Laboratory test finding (navigational concept) 9.0 g/dL 1 2.0-16.0 Below low normal [facility] (Osmel Alvarez MD) Laboratory test finding (navigational concept) 2.42 10^6/uL [...] (Osmel Alvarez MD) ID Date Data Source [id number] 09/28/2020 07:49:00 AM [facility] Name Value Range Interpretation Code Description Data Maura rce(s) Supporting Document(s) Magnesium [Mass/volume] in Serum or Plasma 1.5 MG/DL 1.7 - 2.2 L [facility] ID Date Data Source [id number] 09/28/2020 07:49:00 AM [facility] Name Value Range Interpretation Code Description Data Maura rce(s) Supporting Document(s) COMPREHENSIVE METABOLIC PANEL [facility] COMPREHENSIVE METABOLIC PANEL Sodium [Moles/volume] in Serum or Plasma 138 mEq/L 134 - 153 [facility] Potassium [Moles/volume] in Serum or Plasma 4.7 mEq/L 3.6 - 5.0 [facility] Chloride [Moles/volume] in Serum or Plasma 99 mEq/L 98 - 107 [facility] Carbon dioxide, total [Moles/volume] in Serum or Plasma 31 MEQ/L 22 - 30 H [facility] Glucose [Mass/volume] in Serum or Plasma 96 MG/DL 65 - 110 [facility] BUN 11 MG/DL 7 - 21 [facility] Creatinine [Mass/volume] in Serum or Plasma 1.3 MG/DL 0.7 - 1.5 [facility] BUN/CREAT 8 8 - 27 [facility] Protein [Mass/volume] in Serum or Plasma 5.8 G/DL 6.3 - 8.2 L [facility] Albumin [Mass/volume] in Serum or Plasma 3.5 G/DL 3.9 - 5.0 L [facility] Globulin [Mass/volume] in Serum by calculation 2.3 GM/DL 2.4 - 3.2 L [facility] A/G RATIO 1.5 0.8 - 2.0 [facility] Calcium [Mass/volume] in Serum or Plasma 9.1 MG/DL 8.4 - 10.2 [facility] Bilirubin.total [Mass/volume] in Serum or Plasma <0.7 MG/DL 0.2 - 1.3 [facility] Alkaline phosphatase [Enzymatic activity/volume] in Serum or Plasma 105 U/L 38 - 126 [facility] Aspartate aminotransferase [Enzymatic activity/volume] in Serum or Plasma 24 U/L 5 - 40 [facility] Alanine aminotransferase [Enzymatic activity/volume] in Seru m or Plasma 19 U/L 7 - 56 [facility] Anion gap 3 in Serum or Plasma 8.0 mmol/L 8.0 - 16.0 [facility] AGE 55 yrs [facility] al NON-AA GFR 45 mL[facility] AMER GFR 55 mL/min [facility] Male GFR In [...] >32 mL/min Normal ID Date Data Source [id number] 09/28/2020 07:43:00 AM EST [facility] Name Value Range Interpretation Code Description Data Maura rce(s) Supporting Document(s) CBC W/AUTOMATED DIFF [facility] COMPLETE BLOOD COUNT Leukocytes [#/volume] in Blood by Automated count 4.8 10^3/uL 4.2 - 1 1.0 [facility] Erythrocytes [#/volume] in Blood by Automated count 2.42 10^6/uL 4. 20 - 5.40 L [facility] Hemoglobin [Mass/volume] in Blood 9.0 g/dL 12.0 - 16.0 L [facility] Hematocrit [Volume Fraction] of Blood by Automated count 28.0 % 3 7.0 - 47.0 L [facility] Erythrocyte mean corpuscular volume [Entitic volume] b y Automated count 115.7 fL 81.0 - 101 H [facility] Erythrocyte mean corpuscular hemoglobin [Entitic mass] by Automated count 37.2 pg 27.0 - 34.0 H [facility] Erythrocyte mean corpuscular hemoglobin concentration [Mass/volume] by Automated count 32.1 g/dL 31.0 - 36.0 [facility] Erythrocyte distribution width [Ratio] by Automated count 17.3 % 11.5 - 14.5 H [facility] Platelets [#/volume] in Blood by Automated count 294 10^3/uL 150 - 45 0 [facility] Platelet mean volume [Entitic volume] in Blood by Automated count 9.4 fL 7.4 - 10.4 [facility] Neutrophils/100 leukocytes in Blood by Automated count 50.0 % 37. 0 - 80.0 [facility] Lymphocytes/100 leukocytes in Blood by Manual count 14.5 % 25.0 - 40.0 L [facility] Monocytes/100 leukocytes in Blood by Automated count 29.0 % 3.0 - 8.0 H [facility] Eosinophils/100 leukocytes in Blood by Automated count 4.0 % 0.0 - 7.0 [facility] 1.7 %IG 0.8 % 0.0 - 0.0 [facility] %NRBC 0.0 % 0.0 - 0.0 [facility] Neutrophils [#/volume] in Blood by Automated count 2.38 10^3/uL 2.00 - 6.90 [facility] Lymphocytes [#/volume] in Blood by Automated count 0.69 10^3/uL 0.60 - 3.40 [facility] Monocytes [#/volume] in Blood by Automated count 1.38 10^3/uL 0.00 - 0.90 H [facility] Eosinophils [#/volume] in Blood by Automated count 0.19 10^3/uL 0.00 - 0.70 [facility] Basophils [#/volume] in Blood by Automated count 0.08 10^3/uL 0.00 - 0.20 [facility] #IG 0.04 10^3/uL 0.00 - 0.10 [facility] #NRBC 0.00 10^3/uL 0.00 - 0.00 [facility] MANUAL DIFF SEE BELOW [facility] ital Segmented neutrophils/100 leukocytes in Blood by Manual count 45 % 37 - 80 [facility] BAND 0 % 0 - 5 [facility] %LYMPH 39 % 25 - 40 [facility] %MONO 10 % 3 - 8 [facility] %EOS 5 % 0 - 7 [facility] 1 RBC MORPH NOT INDICATED [facility] ID Date Data Source [id number] 09/28/2020 02:54:00 AM EST [facility] (Osmel Alvarez MD) Name Value Range Interpretation Code Description Data Maura rce(s) Supporting Document(s) Troponin T.cardiac [Mass/volume] in Serum or Plasma Laborato ry test result 0.00-0.10 [facility] (Osmel Alvarez MD) TROPONIN T 0.1 ng/ml Recommended as the clinical th reshold value for Troponin T. ID Date Data Source [id number] 09/28/2020 03:14:00 AM [facility] Name Value Range Interpretation Code Description Data Maura rce(s) Supporting Document(s) TROPONIN T <0.01 NG/ML 0.00 - 0.10 [facility] ospital TROPONIN T0.1 ng/ml Recommended as the c linical threshold value forTroponin T. ID Date Data Source [id number] 09/27/2020 05:50:00 PM [facility] 1 OrderSheet [facility] Emergency Department [address] [place] [address] Phone #: [phone]- [phone] 09/27/2020 17:38 Patient: CHANTALE SOLOMON Sex: F : 1965 Age: 55yWEIGHT:83.9 kg (S) HEIGHT:60 inches (S) BMI:36.1ALLERGIES: Penicillins, SeafoodCHIEF COMPLAINT: L eye, discomfort, L eye:, blurred visionDIAGNOSIS: Transient cerebral ischemiaLAB ORDERSOrder Description Priority Entered Acknowledged InitialedCBC w Diff STAT 18:31 09/27/2020 18:55 [facility], Jesse ER M.D.; [id number] STAT 18:31 09/27/2020 18:55 [facility] ED, Jesse ER M.D.; [id number] STAT 18:31 09/27/2020 18:55 [facility], Jesse ER M.D.; Ekcr3ZL/INR STAT 18:31 09/27/2020 18:55 [facility], Jesse ER M.D.; [id number] STAT 18:31 09/27/2020 18:55 [facility], Jesse ER M.D.; [id number] STUDY ORDERSOrder Description Priority Entered Acknowledged InitialedChest Portable 1 STAT 18:31 09/27/2020 18:34 [facility] [place] ED TechFlorian(Oxygen?(No)) Leida; Tech1 Reason for Study: TIACT HEAD (STROKE STAT 18:31 09/27/2020 18:34 [place] TechFlorian(Oxygen?(No)) Leida; Tech1(IV?(Yes)) Reason for Study: blurry vision on and off, on xarelto, h/o malignancyUS Carotid STAT 20:58 09/27/2020 21:06 [place],(Oxygen?(No)) Bel Carlisle R.N., M.D.; Reason for Study: TIA/CVA 2 OrderSheet [facility] Emergency Department [address] [place] [address] Phone #: ext- [phone] 09/27/2020 17:38 Patient: CHANTALE SOLOMON Sex: F : 1965 Age: 55yMEDICATION/IV/DRIP/FLUID ORDERSOrder Description Priority Entered Acknowledged InitialedGENERAL ORDERSOrder Description Priority Entered Acknowledged InitialedCardiac Monitor 18:31 09/27/2020 18:56 Kody(continuous) [facility] [place] ED, Jesse ER M.D.; [id number] 18:31 09/27/2020 18:56 [facility], Jesse ER M.D.; Tech1[Electronically signed by Jacquelyn Chanel R.N. (23:04 09/27/2020)][Electronically signed by Bel Carl[place] M.D. (23:31 09/27/2020)][Electronically locked by Jacquelyn Chanel R.N. (23:04 09/27/2020)] Name Value Range Interpretation Code Description Data Maura rce(s) Supporting Document(s) ID Date Data Source [id number] 09/27/2020 05:50:00 PM [place] [address] Medication Reconciliation Report [facility] Emergency Department [address] [place] [address] Phone #: ext- [phone] 09/27/2020 17:38 Patient: CHANTALE SOLOMON Sex: F : 1965 Age: 55yWeight: 83.9 kgHeight/Length: 60 in.BMI: 36.1ALLERGIES: Penicillins, SeafoodThe patient's Home Medications are listed below:THE FOLLOWING MEDICATIONS NEED TO BE RECONCILED: Btstolic dilTIAZem HCl Oral Pantoprazole Sodium Oral [facility]acy [facility] Spiriva HandiHaler Inhalation Symbicort Inhalation Tylenol Oral Xarelto OralThe source(s) of the original Home Medication information:patientThe following Medications were given to the patient in the Emergency Department:None.The following Medications were prescribed to the patient:None. Name Value Range Interpretation Code Description Data Maura rce(s) Supporting Document(s) ID Date Data Source [id number] 09/27/2020 05:50:00 PM [place] [address] Medication Administration Record [facility] Emergency Department [address] [place] [address] Phone #: ext- [phone] 09/27/2020 17:38 Patient: CHANTALE SOLOMON A cct#: [id number] Sex: F : 1965 Age: 55yWeight: 83.9 kgHeight/Length: 60 inBMI: 36.1ALLERGIES: Penicillins, SeafoodDate/Time Medication Administered Medication Ordered Name Value Range Interpretation Code Description Data Maura rce(s) Supporting Document(s) ID Date Data Source [id number] 09/27/2020 05:50:00 PM [facility] 1 General Instructions [facility] Emergency Department [address] [place] [address] Phone #: ext [phone] 09/27/2020 17:38 Patient: CHANTALE SOLOMON Sex: F : 1965 Age: 55ySingle acute transient ischemic attack consistent with the amaurosis fugax syndrome.(Electronically signed by Bel Carl[place] M.D. 09/27/2020 23:31) Name Value Range Interpretation Code Description Data Maura rce(s) Supporting Document(s) ID Date Data Source [id number] 09/27/2020 05:50:00 PM [facility] 1 Clinical Report - Nurses [facility] Emergency Department [address] [place] [address] Phone #: ext [phone] 09/27/2020 17:38 Patient: [...] to , kidney function was low, hypotension).Treatment STOCKROOM ATTENDANT:None.SEPSIS SCREEN: SIRS Screen negative. Sepsis Screen negative. [...] HCl Oral. Panto prazole Sodium Oral. Pharmacy [facility]. Spiriva HandiHaler Inhalation. Symbicort Inhalation. Tylenol Oral. Xarelto Oral. --18:08 09/27/20 Chata Barrera RN.AllergiesPenicillins.Seafood. --18:08 09/27/20 Chata Barrera RN.PROBLEMS:Cancer: Active. (Lung, mets to bones). --18:08 09/27/20 Chata Barrera RNIntervertebral Disc Disease. 2 Clinical Report - Nurses [facility] Emergency Department [address] [place] [address], [place] [address] Phone #: ext- [phone] 09/27/2020 17:38 Patient: CHANTALE SOLOMON Sex: F : 1965 Age: 55yPulmonary Embolism.Metabolic disease: (Bone).Chronic Back Pain.DVT - Deep Venous Thrombosis.Heart Disease.Atrial Fibrillation.Lung Cancer. --18:08 Chata Barrera RN.18:03 09/27/20. Medication/allergy information source: the patient. --18:12 09/27/20 Chata Barrera RN.ADDITIONAL SURGERIES:Appendectomy.Back Surgery (Rods in t spine, crushed t7 t8).Dilatation Curettage.Foot surgery.Heel spur.Septoplasty.Tonsillectomy.Tubal Ligation. --18:08 09/27/20 Chata Barrera RN.Hlqkdun57:03 09/27/20.PAST MEDICAL HX: Immunizations: up-to-date.SOCIAL HX: Former [...] include patient 3 Clinical Report - Nurses [facility] Emergency Department [address] [place] [address] Phone #: ext- [phone] 09/27/2020 17:38 Patient: CHANTALE SOLOMON Sex: F : 1965 Age: 55y impairment [...] No skin integrity risk identified. --18:12 09/27/20 Chata Barrera RN.PHYSICAL VSQOPNRDDY92:12 09/27/20. Ambulatory to room.GENERAL / NEURO / [...] shown to the ED physician. --19:08 09/27/20 [facility] TechFlorian ER Tech1 19:00 09/27/20. BP: 111/70. MAP: 83. HR: 82. RR: 17. O2 saturation: 100%. --19:45 09/27/20 [facility] TechFlorian ER Tech1 19:30 09/27/20. BP: 112/68. MAP: 82. HR: 72. RR: 15. O2 saturation: 100%. --19:46 09/27/20 [facility] Tech, Florian, ER Tech1 18:30 09/27/2020 Site #1 started [...] Patient transported to radiology by wheelchair with radiology director. --18:40 09/27/20 Lynette Harris 20:00 09/27/20. Reassurance given. Reassessment acuity: LEVEL [...] position. Brakes of bed on. --20:55 09/27/20 Jaems Youngblood R.N. 4 Clinical Report - Nurses [facility] Emergency Department [address] [place] [address] Phone #: ext- [phone] 09/27/2020 17:38 Patient: [...] 15. O2 saturation: 100%. Pain level now: 0/10. --21:48 09/27/20 James Youngblood R.N. 20:30 09/27/20. BP: 105/55. MAP: 71. HR: 75. RR: 17. O2 saturation: 100% on room air. Pain level now: 0/10. --21:49 09/27/20 James Youngblood R.N. 21:00 09/27/20. BP: 98/42. MAP: 60. HR: 81. RR: 20. O2 saturation: 100% on room air. Pain level now: 0/10. --21:50 09/27/20 James Youngblood R.N. 21:30 09/27/20. [...] 100% on room air. Pain level now: 0/10. --21:51 09/27/20 James Youngblood R.N. Cardiac rhythm: [...] Youngblood R.N. 5 Clinical Report - Nurses [facility] Emergency Department [address] [place] [address] Phone #: ext- [phone] 09/27/2020 17:38 Patient: CHANTALE SOLOMON Sex: F : 1965 Age: 55y 23:02 09/27/20. BP: 123/64. MAP: 83. HR: 73. RR: 14. O2 saturation: 100% on room air. Temp: 98.3 F. Pain level now: 0/10. --23:04 09/27/20 Jacuqelyn Chanel R.N. Departure time: late entry - [...] rce(s) Supporting Document(s) ID Date Data Source [id number] 09/27/2020 05:50:00 PM [facility] 1 Clinical Report - Physicians/Mid Levels [facility] Emergency Department [address] [place] [address] Phone #: ext- [phone] 09/27/2020 17:38 Patient: [...] Venous Thrombosis. 2 Clinical Report - Physicians/Mid Levels [facility] Emergency Department [address] [place] [address] Phone #: ext- [phone] 09/27/2020 17:38 Patient: CHANTALE SOLOMON Sex: F : 1965 Age: 55y Heart Disease. Atrial Fibrillation. Lung Cancer. Additional Surgeries: Appendectomy. Back Surgery. Dilatation Curettage. Foot surgery. Heel spur. Right heel spur. Septoplasty. Septoplasty. Tonsillectomy. Tubal Ligation. Medications: Btstolic. dilTIAZem HCl Oral. Pantoprazole Sodium Oral. Pharmacy [facility]. Spiriva HandiHaler Inhalation. Symbicort Inhalation. Tylenol Oral. Xarelto Oral. Allergies: Penicillins. Seafood.SOCIAL HISTORYFormer smoker. Alcohol use; consumes one glass of wine. No drug use. No recent travel. [place] She lives with spouse.ADDITIONAL NOTESThe nursing notes [...] deficit. 3 Clinical Report - Physicians/Mid Levels [facility] Emergency Department [address] [place] [address] Phone #: ext- [phone] 09/27/2020 17:38 Patient: CHANTALE SOLOMON Sex: F : 1965 Age: 55y Visual patterson normal. Left visual field deficit temporally and superiorly (? resolved . per [id number] left upper quadrant blurriness , now ewresolved). [...] 7.0) 4 Clinical Report - Physicians/Mid Levels [facility] Emergency Department [address] [place] [address] Phone #: ext- [phone] 09/27/2020 17:38 Patient: CHANTALE SOLOMON Sex: F [...] Male GFR Interprentation 20-49 yrs >60 mL/min [id number] yrs >56 mL/min Normal 60-69 yrs >49 mL/min Normal 70-79yrs>42 mL/min Normal 80 and above >35 mL/min Normal Female GFRInterpretation 20-39 yrs >60 mL/min Normal 40-49 yrs >58 mL/minNormal 50-59 yrs >51 mL/min Normal 60-69 yrs >45 mL/min Rjzjln22-37 yrs >39 mL/min Normal 80 and above >32 mL/min NormalMagnesium: (SARAH: 09/27/2020 18:55) ( [facility] 09/27/2020 19:32) Final results Test Result Flag Units (Reference) MAGNESIUM 1.2 L MG/DL (1.7 - 2.2)PT/INR: (SARAH: 09/27/2020 18:55) ( [facility] 09/27/2020 19:10) Final results Test Result Flag Units (Reference) PROTIME 19.8 H SECONDS (11.0 - 15.5) INR 1.60 H (0.93 - 1.23) \\BLDo\\INR INTERPRETATION\\BLDx\\ Therapeutic range for Coumadin and 5 Clinical Report - Physicians/Mid Levels [facility] Emergency Department [address] [place] [address] Phone #: ext- [phone] 09/27/2020 17:38 [id number] Sex[facility] F : 1965 Age: 55y related oral anticoagulants. -International Normalized Ratio (INR): 2.0 - 3.0 for Venous Thrombosis, Pulmonary Embolus, Tissue heart valves, Acute NC, Atrial Fibrillation, Valvular heart disease and recurrent Systemic Embolism. -International Normalized Ratio (INR): 2.5 - 3.5 for Mechanical Prosthetic valve. Troponin-T: (SARAH: 09/27/2020 18:55) ( [facility] 09/27/2020 19:32) Final results Test Result Flag Units (Reference) TROPONIN T <0.01 NG/ML (0.00 - 0.10) TROPONIN T0.1 ng/ml Recommended as the clinical threshold value forTroponin T. Chest Portable 1 View: (SARAH: 09/27/2020 18:31) ( [facility] [place] 09/27/2020 19:23) In Progress CHEST PORTABLE Reason(s): TIA TRANSPORTATION: WC IV? O2? Oxygen?(No) Room: ED CT HEAD(STROKE PROTOCOL) W/O CONTRAST: (SARAH: 09/27/2020 18:31) ( [facility] [place] 09/27/2020 19:23) In Progress CT HEAD(STROKE PROTOCOL) [...] mag also. call and d/w jair covering /selvin and admitted for further care, patient agreed as well. Discussed case with on-call health care provider, (20:35 Sep 27 2020). Reviewed test results and need for additional work-up. Agreed upon treatment plan, need for patient follow-up and decision to admit. Health care provider will see patient in ED. Patient/family counseled. Old medical records ordered. 6 Clinical Report - Physicians/Mid Levels [facility] Emergency Department [address] [place] [address] Phone #: [phone] 09/27/2020 17:38 Patient: [...] rce(s) Supporting Document(s) ID Date Data Source [id number] 09/27/2020 05:50:00 PM EST [facility] Addenda for CHANTALE SOLOMON VisitID: [id number] Date: 21:01Medication reconciliation request faxed to [employer].(Electronically signed by Benjamín Shore - 09/27/2020 21:01) Name Value Range Interpretation Code Description Data Maura rce(s) Supporting Document(s) ID Date Data Source [id number] 09/27/2020 07:32:00 PM [facility] Name Value Range Interpretation Code Description Data Maura rce(s) Supporting Document(s) TROPONIN T <0.01 NG/ML 0.00 - 0.10 [facility] ospital TROPONIN T0.1 ng/ml Recommended as the c linical threshold value forTroponin T. ID Date Data Source [id number] 09/27/2020 07:32:00 PM [facility] Name Value Range Interpretation Code Description Data Maura rce(s) Supporting Document(s) Magnesium [Mass/volume] in Serum or Plasma 1.2 MG/DL 1.7 - 2.2 L [facility] ID Date Data Source [id number] 09/27/2020 07:31:00 PM [facility] Name Value Range Interpretation Code Description Data Maura rce(s) Supporting Document(s) COMPREHENSIVE METABOLIC PANEL [facility] COMPREHENSIVE METABOLIC PANEL Sodium [Moles/volume] in Serum or Plasma 136 mEq/L 134 - 153 [facility] Potassium [Moles/volume] in Serum or Plasma 4.2 mEq/L 3.6 - 5.0 [facility] Chloride [Moles/volume] in Serum or Plasma 95 mEq/L 98 - 107 L [facility] Carbon dioxide, total [Moles/volume] in Serum or Plasma 32 MEQ/L 22 - 30 H [facility] Glucose [Mass/volume] in Serum or Plasma 90 MG/DL 65 - 110 [facility] BUN 13 MG/DL 7 - [facility] Creat[facility] [Mass/volume] in Serum or Plasma 1.4 MG/DL 0.7 - 1.5 [facility] BUN/CREAT 9 8 - 27 [facility] al Protein [Mass/volume] in Serum or Plasma 7.2 G/DL 6.3 - 8.2 [facility] Albumin [Mass/volume] in Serum or Plasma 3.8 G/DL 3.9 - 5.0 L [facility] Globulin [Mass/volume] in Serum by calculation 3.4 GM/DL 2.4 - 3.2 H [facility] A/G RATIO 1.1 0.8 - 2.0 [facility] Calcium [Mass/volume] in Serum or Plasma 9.4 MG/DL 8.4 - 10.2 [facility] Bilirubin.total [Mass/volume] in Serum or Plasma <0.7 MG/DL 0.2 - 1.3 [facility] Alkaline phosphatase [Enzymatic activity/volume] in Serum or Plasma 114 U/L 38 - 126 [facility] Aspartate aminotransferase [Enzymatic activity/volume] in Serum or Plasma 28 U/L 5 - 40 [facility] Alanine aminotransferase [Enzymatic activity/volume] in Seru m or Plasma 23 U/L 7 - 56 [facility] Anion gap 3 in Serum or Plasma 9.0 mmol/L 8.0 - 16.0 [facility] AGE 55 yrs [facility] al NON-AA GFR 41 mL/min [facility] AFR AMER GFR 50 mL/min [facility] Male GFR In [...] >32 mL/min Normal ID Date Data Source [id number] 09/27/2020 07:22:00 PM EST [facility] Name Value Range Interpretation Code Description Data Maura rce(s) Supporting Document(s) CBC W/AUTOMATED DIFF [facility] COMPLETE BLOOD COUNT Leukocytes [#/volume] in Blood by Automated count 7.0 10^3/uL 4.2 - 1 1.0 [facility] Erythrocytes [#/volume] in Blood by Automated count 2.56 10^6/uL 4. 20 - 5.40 L [facility] Hemoglobin [Mass/volume] in Blood 9.5 g/dL 12.0 - 16.0 L [facility] Hematocrit [Volume Fraction] of Blood by Automated count 29.8 % 3 7.0 - 47.0 L [facility] Erythrocyte mean corpuscular volume [Entitic volume] b y Automated count 116.4 fL 81.0 - 101 H [facility] Erythrocyte mean corpuscular hemoglobin [Entitic mass] by Automated count 37.1 pg 27.0 - 34.0 H [facility] Erythrocyte mean corpuscular hemoglobin concentration [Mass/volume] by Automated count 31.9 g/dL 31.0 - 36.0 [facility] Erythrocyte distribution width [Ratio] by Automated count 17.5 % 11.5 - 14.5 H [facility] Platelets [#/volume] in Blood by Automated count 295 10^3/uL 150 - 45 0 [facility] Platelet mean volume [Entitic volume] in Blood by Automated count 9.0 fL 7.4 - 10.4 [facility] Neutrophils/100 leukocytes in Blood by Automated count 48.3 % 37. 0 - 80.0 [facility] Lymphocytes/100 leukocytes in Blood by Manual count 24.0 % 25.0 - 40.0 L [facility] Monocytes/100 leukocytes in Blood by Automated count 22.9 % 3.0 - 8.0 H [facility] Eosinophils/100 leukocytes in Blood by Automated count 3.0 % 0.0 - 7.0 [facility] Basophils/100 leukocytes in Blood by Automated count 0.9 % 0.0 - 2.5 [facility] %IG 0.9 % 0.0 - 0.0 H [facility] al %NRBC 0.0 % 0.0 - 0.0 [facility] al Neutrophils [#/volume] in Blood by Automated count 3.38 10^3/uL 2.00 - 6.90 [facility] Lymphocytes [#/volume] in Blood by Automated count 1.68 10^3/uL 0.60 - 3.40 [facility] Monocytes [#/volume] in Blood by Automated count 1.60 10^3/uL 0.00 - 0.90 H [facility] Eosinophils [#/volume] in Blood by Automated count 0.21 10^3/uL 0.00 - 0.70 [facility] Basophils [#/volume] in Blood by Automated count 0.06 10^3/uL 0.00 - 0.20 [facility] #IG 0.06 10^3/uL 0.00 - 0.10 [facility] #NRBC 0.00 10^3/uL 0.00 - 0.00 [facility] ospital MANUAL DIFF SEE BELOW [facility] ital Segmented neutrophils/100 leukocytes in Blood by Manual count 61 % 37 - 80 [facility] %LYMPH 24 % 25 - 40 L [facility] al %MONO 15 % 3 - 8 H [facility] al RBC MORPH NOT INDICATED [facility] ID Date Data Source [id number] 09/27/2020 07:10:00 PM [facility] Name Value Range Interpretation Code Description Data Maura rce(s) Supporting Document(s) Prothrombin time (PT) 19.8 SECONDS 11.0 - 15.5 H [facility] INR in Platelet poor plasma by Coagulation assay 1.60 0.93 - 1. 23 H [facility] \\BLDo\\INR INTERPRETATION\\BLDx\\ Therapeutic range for Coumadin and related oral anticoagulants. - International Normalized Ratio (INR): 2.0 - 3.0 for Venous Thrombosis, Pulmonary Embolus, Tissue heart valves, Acute NC, Atrial Fibrillation, Valvular heart disease and recurrent Systemic Embolism. -International Normalized Ratio (INR): 2.5 - 3.5 for Mechanical Prosthetic valve. ID Date Data Source [id number] 09/05/2020 03:26:00 PM [facility] Name Value Range Interpretation Code Description Data Maura rce(s) Supporting Document(s) COMPREHENSIVE METABOLIC PANEL [facility] COMPREHENSIVE METABOLIC PANEL Sodium [Moles/volume] in Serum or Plasma 138 mEq/L 134 - 153 [facility] Potassium [Moles/volume] in Serum or Plasma 5.0 mEq/L 3.6 - 5.0 [facility] Chloride [Moles/volume] in Serum or Plasma 100 mEq/L 98 - 107 [facility] Carbon dioxide, total [Moles/volume] in Serum or Plasma 27 MEQ/L 22 - 30 [facility] Glucose [Mass/volume] in Serum or Plasma 104 MG/DL 65 - 110 [facility] BUN 14 MG/DL 7 - 21 [facility] al Creatinine [Mass/volume] in Serum or Plasma 1.3 MG/DL 0.7 - 1.5 [facility] BUN/CREAT 11 8 - 27 [facility] Protein [Mass/volume] in Serum or Plasma 6.7 G/DL 6.3 - 8.2 [facility] Albumin [Mass/volume] in Serum or Plasma 3.7 G/DL 3.9 - 5.0 L [facility] Globulin [Mass/volume] in Serum by calculation 3.0 GM/DL 2.4 - 3.2 [facility] A/G RATIO 1.2 0.8 - 2.0 [facility] Calcium [Mass/volume] in Serum or Plasma 9.4 MG/DL 8.4 - 10.2 [facility] Bilirubin.total [Mass/volume] in Serum or Plasma <0.7 MG/DL 0.2 - 1.3 [facility] Alkaline phosphatase [Enzymatic activity/volume] in Serum or Plasma 106 U/L 38 - 126 [facility] Aspartate aminotransferase [Enzymatic activity/volume] in Serum or Plasma 25 U/L 5 - 40 [facility] Alanine aminotransferase [Enzymatic activity/volume] in Seru m or Plasma 14 U/L 7 - 56 [facility] Anion gap 3 in Serum or Plasma 11.0 mmol/L 8.0 - 16.0 [facility] AGE 55 yrs [facility] al NON-AA GFR 45 mL/min [facility] AFR AMER GFR 55 mL/min [facility] Male GFR In [...] >32 mL/min Normal ID Date Data Source [id number] 08/29/2020 10:44:00 AM EDT [facility] Name Value Range Interpretation Code Description Data Maura rce(s) Supporting Document(s) COMPREHENSIVE METABOLIC PANEL [facility] COMPREHENSIVE METABOLIC PANEL Sodium [Moles/volume] in Serum or Plasma 137 mEq/L 134 - 153 [facility] Potassium [Moles/volume] in Serum or Plasma 4.3 mEq/L 3.6 - 5.0 [facility] Chloride [Moles/volume] in Serum or Plasma 97 mEq/L 98 - 107 L [facility] Carbon dioxide, total [Moles/volume] in Serum or Plasma 31 MEQ/L 22 - 30 H [facility] Glucose [Mass/volume] in Serum or Plasma 122 MG/DL 65 - 110 H [facility] BUN 16 MG/DL 7 - 21 [facility] al Creatinine [Mass/volume] in Serum or Plasma 1.5 MG/DL 0.7 - 1.5 [facility] BUN/CREAT 11 8 - 27 [facility] Protein [Mass/volume] in Serum or Plasma 6.7 G/DL 6.3 - 8.2 [facility] Albumin [Mass/volume] in Serum or Plasma 3.6 G/DL 3.9 - 5.0 L [facility] Globulin [Mass/volume] in Serum by calculation 3.1 GM/DL 2.4 - 3.2 [facility] A/G RATIO 1.2 0.8 - 2.0 [facility] Calcium [Mass/volume] in Serum or Plasma 8.5 MG/DL 8.4 - 10.2 [facility] Bilirubin.total [Mass/volume] in Serum or Plasma <0.7 MG/DL 0.2 - 1.3 [facility] Alkaline phosphatase [Enzymatic activity/volume] in Serum or Plasma 108 U/L 38 - 126 [facility] Aspartate aminotransferase [Enzymatic activity/volume] in Serum or Plasma 29 U/L 5 - 40 [facility] Alanine aminotransferase [Enzymatic activity/volume] in Seru m or Plasma 14 U/L 7 - 56 [facility] Anion gap 3 in Serum or Plasma 9.0 mmol/L 8.0 - 16.0 [facility] AGE 55 yrs [facility] al NON-AA GFR 38 mL/min [facility] willy AFR AMER GFR 46 mL/min [facility] Male GFR In [...] >32 mL/min Normal ID Date Data Source [id number] 08/29/2020 10:37:00 AM EDT [facility] Name Value Range Interpretation Code Description Data Maura rce(s) Supporting Document(s) CBC W/AUTOMATED DIFF [facility] COMPLETE BLOOD COUNT Leukocytes [#/volume] in Blood by Automated count 8.8 10^3/uL 4.2 - 1 1.0 [facility] Erythrocytes [#/volume] in Blood by Automated count 2.97 10^6/uL 4. 20 - 5.40 L [facility] Hemoglobin [Mass/volume] in Blood 11.0 g/dL 12.0 - 16.0 L [facility] Hematocrit [Volume Fraction] of Blood by Automated count 33.4 % 3 7.0 - 47.0 L [facility] Erythrocyte mean corpuscular volume [Entitic volume] b y Automated count 112.5 fL 81.0 - 101 H [facility] Erythrocyte mean corpuscular hemoglobin [Entitic mass] by Automated count 37.0 pg 27.0 - 34.0 H [facility] Erythrocyte mean corpuscular hemoglobin concentration [Mass/volume] by Automated count 32.9 g/dL 31.0 - 36.0 [facility] Erythrocyte distribution width [Ratio] by Automated count 14.5 % 11.5 - 14.5 [facility] Platelets [#/volume] in Blood by Automated count 347 10^3/uL 150 - 45 0 [facility] Platelet mean volume [Entitic volume] in Blood by Automated count 9.1 fL 7.4 - 10.4 [facility] Neutrophils/100 leukocytes in Blood by Automated count 65.2 % 37. 0 - 80.0 [facility] Lymphocytes/100 leukocytes in Blood by Manual count 11.5 % 25.0 - 40.0 L [facility] Monocytes/100 leukocytes in Blood by Automated count 18.4 % 3.0 - 8.0 H [facility] Eosinophils/100 leukocytes in Blood by Automated count 3.2 % 0.0 - 7.0 [facility] Basophils/100 leukocytes in Blood by Automated count 1.0 % 0.0 - 2.5 [facility] %IG 0.7 % 0.0 - 0.0 H [facility] al %NRBC 0.0 % 0.0 - 0.0 [facility] al Neutrophils [#/volume] in Blood by Automated count 5.76 10^3/uL 2.00 - 6.90 [facility] Lymphocytes [#/volume] in Blood by Automated count 1.02 10^3/uL 0.60 - 3.40 [facility] Monocytes [#/volume] in Blood by Automated count 1.63 10^3/uL 0.00 - 0.90 H [facility] Eosinophils [#/volume] in Blood by Automated count 0.28 10^3/uL 0.00 - 0.70 [facility] Basophils [#/volume] in Blood by Automated count 0.09 10^3/uL 0.00 - 0.20 [facility] #IG 0.06 10^3/uL 0.00 - 0.10 [facility] ospital #NRBC 0.00 10^3/uL 0.00 - 0.00 [facility] ospital MANUAL DIFF SEE BELOW [facility] ital Segmented neutrophils/100 leukocytes in Blood by Manual count 74 % 37 - 80 [facility] BAND 1 % 0 - 5 [facility] al %LYMPH 12 % 25 - 40 L [facility] al %MONO 12 % 3 - 8 [facility] %EOS 1 % 0 - 7 [facility] RBC MORPH MORPH IS NORMAL [facility] ID Date Data Source [id number] 08/07/2020 11:19:00 [place] [address] HISTORY AND PHYSICALNAME: JUANITO Daniels ROOM#: [id number] OF : 1965 MR#: [id number] PHYS: Osmel Alvarez MD, [facility] [id number] DATE: 08/05/20CHIEF COMPLAINT: This is a 55-year-old [...] She [facility]. She has known history ofappendectomy, back surgery [...] Mother is alive and has COPD. [address] [place] [address] HISTORY AND PHYSICALNAME: JUANITO Daniels ROOM#: [id number] OF : 1965 MR#: [id number] PHYS: Osmel Alvarez MD, PC DATE: 08/05/20PHYSICAL EXAMINATION:GENERAL: Moderately-built.VITAL SIGNS: Blood pressure is 134/97. Heart rate was 160. Temperature 98. Respirations 18-24. I8ucxjhlgqyt is 100% on 2 liters of oxygen.HEENT: [...] Bystolic.DD: Osmel Alvarez MD, PC 08/05/20 21:13DT: SONYA 08/06/20 00:51/SSR 08/07/20 11:18DS: Osmel Alvarez MD, PC 08/07/20 07:51 2 Name Value Range Interpretation Code Description Data Maura rce(s) Supporting Document(s) ID Date Data Source [id number] 08/07/2020 11:17:00 [place] [address] DISCHARGE SUMMARYNAME: JUANITO Daniels ROOM#: [id number] OF : 1965 MR#: [id number] PHYS: Osmel Alvarez MD, PC DATE: 08/05/20 [...] daily.11. Symbicort 160/4.5 mcg bid.DISCHARGE PLAN: [address] [place] [address] DISCHARGE SUMMARYNAME: JUANITO Daniels ROOM#: [id number] OF : 1965 MR#: [id number] PHYS: Osmel Alvarez MD, PC DATE: 08/05/20 [...] rce(s) Supporting Document(s) ID Date Data Source [id number] 08/15/2020 10:43:00 AM EDT [facility] (Osmel Alvarez MD) Name Value Range Interpretation Code Description Data Maura rce(s) Supporting Document(s) Natriuretic peptide.B prohormone N-Terminal [Mass/volu me] in Serum or Plasma 1005 pg/mL 0-125 Above high normal [facility] (Osmel Alvarez MD) Fibrin D-dimer [Presence] in Platelet poor plasma 1.41 ug/mL 0.27-0.50 Above high normal [facility] (Osmel Alvarez MD) Hemoglobin A1c/Hemoglobin.total in Blood 5.2 % 4.4-6.1 [facility] (Osmel Alvarez MD) {A1] {HB] ID Date Data Source [id number] 08/15/2020 10:43:00 AM EDT [facility] (Osmel Alvarez [...] (navigational concept) 113 U/L 38-126 [facility] (Osmel Alvarez MD) Laboratory test finding (navigational concept) 1.2 [...] >32 mL/min Normal ID Date Data Source [id number] 08/15/2020 10:43:00 AM EDT [facility] (Osmel Alvarez MD) Name Value Range Interpretation Code Description Data Maura rce(s) Supporting Document(s) Magnesium [Mass/volume] in Serum or Plasma 1.1 mg/dL 1.7-2.2 Belo w low normal [facility] (Osmel Alvarez MD) Iron [Mass/volume] in Serum or Plasma 28 ug/dL 42-135 Below low normal [facility] (Osmel Alvarez MD) ID Date Data Source [id number] 08/15/2020 10:43:00 AM EDT [facility] (Osmel Alvarez MD) Name Value Range Interpretation Code Description Data Maura rce(s) Supporting Document(s) Laboratory test finding (navigational concept) 9.7 10^3/uL 4.2-11.0 [facility] (Osmel Alvarez MD) Laboratory test finding (navigational concept) Laboratory test result [facility] (Osmel Alvarez MD) COMPLETE BLOOD COUNT Laboratory test finding (navigational concept) 32.5 % 3 7.0-47.0 Below low normal [facility] (Osmel Alvarez MD) Laboratory test finding (navigational concept) 10.8 g/dL 1 2.0-16.0 Below low normal [facility] (Osmel Alvarez MD) Laboratory test finding (navigational concept) 2.91 10^6/uL [...] (navigational concept) 1.0 % 0.0-2.5 [facility] (Osmel Alavrez MD) Laboratory test finding (navigational concept) 2.7 [...] 3 % 0-7 [facility] (Osmel Alvarez MD) Laboratory test finding (navigational concept) 12 % 25-40 Below low normal [facility] (Osmel Alvarez MD) Laboratory test finding (navigational concept) 0 % 0-2 [facility] (Osmel Alvarez MD) Laboratory test finding (navigational concept) Laboratory test result [facility] (Osmel Alvarez MD) ID Date Data Source [id number] 08/15/2020 11:37:00 AM EDT [facility] Name Value Range Interpretation Code Description Data Maura rce(s) Supporting Document(s) Hemoglobin A1c/Hemoglobin.total in Blood 5.2 % 4.4 - 6.1 [facility] {A1]{HB] ID Date Data Source [id number] 08/15/2020 11:37:00 AM EDT [facility] Name Value Range Interpretation Code Description Data Maura rce(s) Supporting Document(s) BNP 1005 PG/ML 0 - 125 [facility] ID Date Data Source [id number] 08/15/2020 11:08:00 AM EDT [facility] Name Value Range Interpretation Code Description Data Maura rce(s) Supporting Document(s) Fibrin D-dimer FEU [Mass/volume] in Platelet poor plasma 1.41 ug /mL 0.27 - 0.50 H [facility] ID Date Data Source [id number] 08/15/2020 11:37:00 AM EDT [facility] Name Value Range Interpretation Code Description Data Maura rce(s) Supporting Document(s) COMPREHENSIVE METABOLIC PANEL [facility] COMPREHENSIVE METABOLIC PANEL Sodium [Moles/volume] in Serum or Plasma 137 mEq/L 134 - 153 [facility] Potassium [Moles/volume] in Serum or Plasma 3.5 mEq/L 3.6 - 5.0 L [facility] Chloride [Moles/volume] in Serum or Plasma 95 mEq/L 98 - 107 L [facility] Carbon dioxide, total [Moles/volume] in Serum or Plasma 27 MEQ/L 22 - 30 [facility] Glucose [Mass/volume] in Serum or Plasma 105 MG/DL 65 - 110 [facility] BUN 9 MG/DL 7 - 21 [facility] Creatinine [Mass/volume] in Serum or Plasma 1.3 MG/DL 0.7 - 1.5 [facility] BUN/CREAT 7 8 - 27 L [facility] Protein [Mass/volume] in Serum or Plasma 7.1 G/DL 6.3 - 8.2 [facility] Albumin [Mass/volume] in Serum or Plasma 3.9 G/DL 3.9 - 5.0 [facility] Globulin [Mass/volume] in Serum by calculation 3.2 GM/DL 2.4 - 3.2 [facility] A/G RATIO 1.2 0.8 - 2.0 [facility] Alkaline phosphatase [Enzymatic activity/volume] in Serum or Plasma 113 U/L 38 - 126 [facility] Aspartate aminotransferase [Enzymatic activity/volume] in Serum or Plasma 24 U/L 5 - 40 [facility] Alanine aminotransferase [Enzymatic activity/volume] in Seru m or Plasma 12 U/L 7 - 56 [facility] Anion gap 3 in Serum or Plasma 15.0 mmol/L 8.0 - 16.0 [facility] AGE 55 yrs [facility] NON-AA GFR 45 mL/min [facility] willy AFR AMER GFR 55 mL/min [facility] Male GFR In [...] >32 mL/min Normal ID Date Data Source [id number] 08/15/2020 11:37:00 AM EDT [facility] Name Value Range Interpretation Code Description Data Maura rce(s) Supporting Document(s) Iron [Mass/volume] in Serum or Plasma 28 UG/DL 42 - 135 L [facility] ID Date Data Source [id number] 08/15/2020 11:51:00 AM [facility] Name Value Range Interpretation Code Description Data Maura rce(s) Supporting Document(s) Magnesium [Mass/volume] in Serum or Plasma 1.1 MG/DL 1.7 - 2.2 L [facility] ID Date Data Source [id number] 08/15/2020 11:40:00 AM [facility] Name Value Range Interpretation Code Description Data Maura rce(s) Supporting Document(s) CBC W/AUTOMATED DIFF [facility] COMPLETE BLOOD COUNT Leukocytes [#/volume] in Blood by Automated count 9.7 10^3/uL 4.2 - 1 1.0 [facility] Erythrocytes [#/volume] in Blood by Automated count 2.91 10^6/uL 4. 20 - 5.40 L [facility] Hemoglobin [Mass/volume] in Blood 10.8 g/dL 12.0 - 16.0 L [facility] Hematocrit [Volume Fraction] of Blood by Automated count 32.5 % 3 7.0 - 47.0 L [facility] Erythrocyte mean corpuscular volume [Entitic volume] b y Automated count 111.7 fL 81.0 - 101 H [facility] Erythrocyte mean corpuscular hemoglobin [Entitic mass] by Automated count 37.1 pg 27.0 - 34.0 H [facility] Erythrocyte mean corpuscular hemoglobin concentration [Mass/volume] by Automated count 33.2 g/dL 31.0 - 36.0 [facility] Erythrocyte distribution width [Ratio] by Automated count 15.1 % 11.5 - 14.5 H [facility] Platelets [#/volume] in Blood by Automated count 335 10^3/uL 150 - 45 0 [facility] Platelet mean volume [Entitic volume] in Blood by Automated count 9.5 fL 7.4 - 10.4 [facility] Neutrophils/100 leukocytes in Blood by Automated count 60.8 % 37. 0 - 80.0 [facility] Lymphocytes/100 leukocytes in Blood by Manual count 7.4 % 25.0 - 40.0 L [facility] Monocytes/100 leukocytes in Blood by Automated count 27.0 % 3.0 - 8.0 H [facility] Eosinophils/100 leukocytes in Blood by Automated count 2.7 % 0.0 - 7.0 [facility] 1.0 %IG 1.1 % 0.0 - 0.0 H [facility] al %NRBC 0.0 % 0.0 - 0.0 [facility] al Neutrophils [#/volume] in Blood by Automated count 5.87 10^3/uL 2.00 - 6.90 [facility] Lymphocytes [#/volume] in Blood by Automated count 0.72 10^3/uL 0.60 - 3.40 [facility] Monocytes [#/volume] in Blood by Automated count 2.61 10^3/uL 0.00 - 0.90 H [facility] Eosinophils [#/volume] in Blood by Automated count 0.26 10^3/uL 0.00 - 0.70 [facility] Basophils [#/volume] in Blood by Automated count 0.10 10^3/uL 0.00 - 0.20 [facility] #IG 0.11 10^3/uL 0.00 - 0.10 H [facility] #NRBC 0.00 10^3/uL 0.00 - 0.00 [facility] MANUAL DIFF SEE BELOW [facility] Segmented neutrophils/100 leukocytes in Blood by Manual count 67 % 37 - 80 [facility] BAND 0 % 0 - 5 [facility] %LYMPH 12 % 25 - 40 [facility] %MONO 18 % 3 - 8 [facility] %EOS 3 % 0 - 7 [facility] 0 RBC MORPH NOT INDICATED [facility] ID Date Data Source [id number] 08/07/2020 12:34:00 PM EDT [facility] [address] [place] [address] PHONE: [phone] FAX: [phone] Name .................. : JUANITO ROMAN Jeremiah Acct Number.................. : [id number] ROOM. ................. : CCU3 Number ................... : [id number] Stay type ............. : I/P Discharge Date......... ... : Admit Date ......... : 08/05/20 Admit Phys .................... : KIM VANESSA Date of ....... : 1965 Family Phys ................... : REGINE GAIL Phone .................. : [phone] Age ................................ : 55 Film# .................. .:[id number] Sex ................................. : F Unsigned transcriptions are preliminary reports and do not represent a medical or legal document CHEST PORTABLE 11133 COMPLETE:08/05/20 22:29 RLB [id number] Reason(s): Chest Pain PORTABLE CHEST X-RAY: COMPARISON: [...] By Elier Rodríguez MD , 08/07/20 12:34, AML Transcribe Initials: REYES , Transcribe Date: 08/05/20 22:54, Dictation Date: Copy for: [address] [facility] REC DISCHARGED Page 1 of 1 Name Value Range Interpretation Code Description Data Maura rce(s) Supporting Document(s) ID Date Data Source [id number] 08/07/2020 08:52:00 AM EDT [facility] [address] [place] [address] RESPIRATORY CARE REPORT ==== ---------NAME------- NUMBER SEX AGE ADMIT DISC. XRAY# F/C CYNDY Daniels [id number] F 55 08/05/20 [id number] B1 I/P DATE OF : 1965 M/R# [id number] #: [phone] CCU3 LOCATION: EMERGENCY DEPT EKG [id number] COMPL ETE:08/07/20 07:21 [facility] [address] PHYSICIAN: KIM MENDEZ Name Value Range Interpretation Code Description Data Maura rce(s) Supporting Document(s) ID Date Data Source [id number] 08/06/2020 11:11:00 [place] [address] PROGRESS NOTENAME: JUANITO Daniels ROOM#: [id number] OF : 1965 MR#: [id number] DATE: 08/05/20 OF SERVICE: 08/06/20UBJECTIVE: This patient [...] Name Value Range Interpretation Code Description Data [facility] rce(s) Supporting Document(s) ID Date Data Source [id number] 08/07/2020 06:55:00 AM EDT [facility] Name Value Range Interpretation Code Description Data [facility] rce(s) Supporting Document(s) CBC W/AUTOMATED DIFF [facility] COMPLETE BLOOD COUNT Leukocytes [#/volume] in Blood by Automated count 3.0 10^3/uL 4.2 - 1 1.0 L [facility] Erythrocytes [#/volume] in Blood by Automated count 2.38 10^6/uL 4. 20 - 5.40 L [facility] Hemoglobin [Mass/volume] in Blood 9.1 g/dL 12.0 - 16.0 L [facility] Hematocrit [Volume Fraction] of Blood by Automated count 25.9 % 3 7.0 - 47.0 L [facility] Erythrocyte mean corpuscular volume [Entitic volume] b y Automated count 108.8 fL 81.0 - 101 H [facility] Erythrocyte mean corpuscular hemoglobin [Entitic mass] by Automated count 38.2 pg 27.0 - 34.0 H [facility] Erythrocyte mean corpuscular hemoglobin concentration [Mass/volume] by Automated count 35.1 g/dL 31.0 - 36.0 [facility] Erythrocyte distribution width [Ratio] by Automated count 13.6 % 11.5 - 14.5 [facility] Platelets [#/volume] in Blood by Automated count 49 10^3/uL 150 - 450 L [facility] Platelet mean volume [Entitic volume] in Blood by Automated count 9.9 fL 7.4 - 10.4 [facility] Neutrophils/100 leukocytes in Blood by Automated count 50.0 % 37. 0 - 80.0 [facility] Lymphocytes/100 leukocytes in Blood by Manual count 11.7 % 25.0 - 40.0 L [facility] Monocytes/100 leukocytes in Blood by Automated count 31.7 % 3.0 - 8.0 H [facility] Eosinophils/100 leukocytes in Blood by Automated count 6.0 % 0.0 - 7.0 [facility] 0.3 %IG 0.3 % 0.0 - 0.0 H [facility] %NRBC 0.0 % 0.0 - 0.0 [facility] Neutrophils [#/volume] in Blood by Automated count 1.50 10^3/uL 2.00 - 6.90 L [facility] Lymphocytes [#/volume] in Blood by Automated count 0.35 10^3/uL 0.60 - 3.40 L [facility] Monocytes [#/volume] in Blood by Automated count 0.95 10^3/uL 0.00 - 0.90 H [facility] Eosinophils [#/volume] in Blood by Automated count 0.18 10^3/uL 0.00 - 0.70 [facility] Basophils [#/volume] in Blood by Automated count 0.01 10^3/uL 0.00 - 0.20 [facility] #IG 0.01 10^3/uL 0.00 - 0.10 [facility] #NRBC 0.00 10^3/uL 0.00 - 0.00 [facility] MANUAL DIFF SEE BELOW [facility] Segmented neutrophils/100 leukocytes in Blood by Manual count 54 % 37 - 80 [facility] BAND 0 % 0 - 5 [facility] %LYMPH 16 % 25 - 40 L [facility] %MONO 25 % 3 - 8 [facility] %EOS 5 % 0 - 7 [facility] 0 RBC MORPH NOT INDICATED [facility] ID Date Data Source [id number] 08/07/2020 06:54:00 AM EDT [facility] Name Value Range Interpretation Code Description Data Maura rce(s) Supporting Document(s) Magnesium [Mass/volume] in Serum or Plasma 1.5 MG/DL 1.7 - 2.2 L [facility] ID Date Data Source [id number] 08/07/2020 06:54:00 AM EDT [facility] Name Value Range Interpretation Code Description Data Maura rce(s) Supporting Document(s) COMPREHENSIVE METABOLIC PANEL [facility] COMPREHENSIVE METABOLIC PANEL Sodium [Moles/volume] in Serum or Plasma 135 mEq/L 134 - 153 [facility] Potassium [Moles/volume] in Serum or Plasma 3.8 mEq/L 3.6 - 5.0 [facility] Chloride [Moles/volume] in Serum or Plasma 97 mEq/L 98 - 107 L [facility] Carbon dioxide, total [Moles/volume] in Serum or Plasma 29 MEQ/L 22 - 30 [facility] Glucose [Mass/volume] in Serum or Plasma 112 MG/DL 65 - 110 H [facility] BUN 10 MG/DL 7 - 21 [facility] Creatinine [Mass/volume] in Serum or Plasma 1.2 MG/DL 0.7 - 1.5 [facility] BUN/CREAT 8 8 - 27 [facility] Protein [Mass/volume] in Serum or Plasma 5.9 G/DL 6.3 - 8.2 L [facility] Albumin [Mass/volume] in Serum or Plasma 3.3 G/DL 3.9 - 5.0 L [facility] Globulin [Mass/volume] in Serum by calculation 2.6 GM/DL 2.4 - 3.2 [facility] A/G RATIO 1.3 0.8 - 2.0 [facility] Calcium [Mass/volume] in Serum or Plasma 8.0 MG/DL 8.4 - 10.2 L [facility] Bilirubin.total [Mass/volume] in Serum or Plasma <0.7 MG/DL 0.2 - 1.3 [facility] Alkaline phosphatase [Enzymatic activity/volume] in Serum or Plasma 137 U/L 38 - 126 H [facility] Aspartate aminotransferase [Enzymatic activity/volume] in Serum or Plasma 30 U/L 5 - 40 [facility] Alanine aminotransferase [Enzymatic activity/volume] in Seru m or Plasma 20 U/L 7 - 56 [facility] Anion gap 3 in Serum or Plasma 9.0 mmol/L 8.0 - 16.0 [facility] AGE 55 yrs [facility] NON-AA GFR 50 mL/min [facility] willy AFR AMER GFR 60 mL/min [facility] Male GFR In [...] >32 mL/min Normal ID Date Data Source [id number] 08/06/2020 11:13:00 AM EDT [address] [address] RESPIRATORY CARE REPORT ==== ---------NAME------- NUMBER SEX AGE ADMIT DISC. XRAY# F/C CYNDY Daniels [id number] F 55 08/05/20 [id number] B1 I/P DATE OF : 1965 M/R# [id number] PH#: [phone] CCU3 LOCATION: EMERGENCY DEPT EKG 98579 COMPLET E:08/06/20 11:00 [place] [id number] PHYSICIAN: KIM MENDEZ Name Value Range Interpretation Code Description Data Maura rce(s) Supporting Document(s) ID Date Data Source [id number] 08/06/2020 11:11:00 AM EDT [address] [place] [address] RESPIRATORY CARE REPORT ==== ---------NAME------- NUMBER SEX AGE ADMIT DISC. XRAY# F/C CYNDY Daniels [id number] F 55 08/05/20 [id number] B1 I/P DATE OF : 1965 M/R# [id number] PH#: [phone] RM CCU3 LOCATION: EMERGENCY DEPT EKG 34684 COMPLET E:08/06/20 04:39 T 91872 PHYSICIAN: KIM MENDEZ Name Value Range Interpretation Code Description Data Maura rce(s) Supporting Document(s) ID Date Data Source [id number] 08/06/2020 11:10:00 [place] [address] RESPIRATORY CARE REPORT ==== ---------NAME------- NUMBER SEX AGE ADMIT DISC. XRAY# F/C CYNDY Daniels [id number] F 55 08/05/20 [id number] B1 I/P DATE OF : 1965 M/R# [id number] PH#: [phone] RM CCU3 LOCATION: EMERGENCY DEPT EKG 05032 COMPLET E:08/06/20 04:39 T 02300 PHYSICIAN: KIM MENDEZ Name Value Range Interpretation Code Description Data Maura rce(s) Supporting Document(s) ID Date Data Source [id number] 08/06/2020 11:09:00 [place] [address] RESPIRATORY CARE REPORT ==== ---------NAME------- NUMBER SEX AGE ADMIT DISC. XRAY# F/C CYNDY Daniels [id number] F 55 08/05/20 [id number] B1 I/P DATE OF : 1965 M/R# [id number] PH#: [phone] CCU3 LOCATION: EMERGENCY DEPT EKG 66453 COMPLET E:08/06/20 04:39 [place] [address] PHYSICIAN: KIM MENDEZ Name Value Range Interpretation Code Description Data Maura rce(s) Supporting Document(s) ID Date Data Source [id number] 08/06/2020 11:08:00 [place] [address] RESPIRATORY CARE REPORT ==== ---------NAME------- NUMBER SEX AGE ADMIT DISC. XRAY# F/C CYNDY Daniels [id number] F 55 08/05/20 [id number] B1 I/P DATE OF : 1965 M/R# [id number] PH#: [phone] RM CCU3 LOCATION: EMERGENCY DEPT EKG 41957 COMPLET E:08/06/20 04:39 V[place] [address]44[address] PHYSICIAN: KIM MENDEZ Name Value Range Interpretation Code Description Data Maura rce(s) Supporting Document(s) ID Date Data Source [id number] 08/06/2020 11:07:00 [place] [address] RESPIRATORY CARE REPORT ==== ---------NAME------- NUMBER SEX AGE ADMIT DISC. XRAY# F/C CYNDY Daniels [id number] F 55 08/05/20 [id number] B1 I/P DATE OF : 1965 M/R# [id number] PH#: [phone] RM CCU3 LOCATION: EMERGENCY DEPT EKG 36626 COMPLET E:08/06/20 04:39 [place] [address]268 PHYSICIAN: KIM MENDEZ Name Value Range Interpretation Code Description Data Maura rce(s) Supporting Document(s) ID Date Data Source [id number] 08/06/2020 11:06:00 [place] [address] RESPIRATORY CARE REPORT ==== ---------NAME------- NUMBER SEX AGE ADMIT DISC. XRAY# F/C CYNDY Daniels [id number] F 55 08/05/20 [id number] B1 I/P DATE OF : 1965 M/R# [id number] PH#: [phone] RM CCU3 LOCATION: EMERGENCY DEPT EKG 84592 COMPLET E:08/06/20 04:39 [place] [address]63[address] PHYSICIAN: KIM MENDEZ Name Value Range Interpretation Code Description Data Maura rce(s) Supporting Document(s) ID Date Data Source [id number] 08/06/2020 11:05:00 [place] [address] RESPIRATORY CARE REPORT ==== ---------NAME------- NUMBER SEX AGE ADMIT DISC. XRAY# F/C CYNDY Daneils [id number] F 55 08/05/20 [id number] B1 I/P DATE OF : 1965 M/R# [id number] PH#: [phone] CCU3 LOCATION: EMERGENCY DEPT EKG 42976 COMPLET E:08/06/20 02:15 VMT 85695 PHYSICIAN: KIM MENDEZ Name Value Range Interpretation Code Description Data Maura rce(s) Supporting Document(s) ID Date Data Source [id number] 08/06/2020 07:24:00 [place] [address] ---------NAME--------- NUMBER SEX AGE ADMIT DISC. XRAY# F/C OSMANI JUANITO Daniels [id number] F 55 08/05/20 [id number] B1 I/P DATE OF : 1965 M/R# [id number] PH#: [phone] CCU3 LOCATION: EMERGENCY DEPT TRANSCRIBED: 08/06/20 7:[address] THORAX W/O CONTRAST 54678 COMPLETED:08/06/20 6:07 RLB 52733 {REASON FOR CHEST: Pleural Effusion PHYSICIAN: KIM MENDEZ== R A D I O L [...] rce(s) Supporting Document(s) ID Date Data Source [id number] 08/06/2020 08:02:00 AM EDT [facility] Name Value Range Interpretation Code Description Data Maura rce(s) Supporting Document(s) Lactate [Moles/volume] in Serum or Plasma 1.6 MMOL/L 0.2 - 2.2 [facility] ID Date Data Source [id number] 08/06/2020 08:02:00 AM EDT [facility] Name Value Range Interpretation Code Description Data Maura rce(s) Supporting Document(s) CBC W/AUTOMATED DIFF [facility] COMPLETE BLOOD COUNT Leukocytes [#/volume] in Blood by Automated count 2.8 10^3/uL 4.2 - 1 1.0 L [facility] Erythrocytes [#/volume] in Blood by Automated count 2.57 10^6/uL 4. 20 - 5.40 L [facility] Hemoglobin [Mass/volume] in Blood 9.5 g/dL 12.0 - 16.0 L [facility] Hematocrit [Volume Fraction] of Blood by Automated count 27.9 % 3 7.0 - 47.0 L [facility] Erythrocyte mean corpuscular volume [Entitic volume] b y Automated count 108.6 fL 81.0 - 101 H [facility] Erythrocyte mean corpuscular hemoglobin [Entitic mass] by Automated count 37.0 pg 27.0 - 34.0 H [facility] Erythrocyte mean corpuscular hemoglobin concentration [Mass/volume] by Automated count 34.1 g/dL 31.0 - 36.0 [facility] Erythrocyte distribution width [Ratio] by Automated count 13.6 % 11.5 - 14.5 [facility] Platelets [#/volume] in Blood by Automated count 47 10^3/uL 150 - 450 L [facility] Platelet mean volume [Entitic volume] in Blood by Automated count 10.7 fL 7.4 - 10.4 H [facility] Neutrophils/100 leukocytes in Blood by Automated count 48.1 % 37. 0 - 80.0 [facility] Lymphocytes/100 leukocytes in Blood by Manual count 9.6 % 25.0 - 40.0 L [facility] Monocytes/100 leukocytes in Blood by Automated count 33.7 % 3.0 - 8.0 H [facility] Eosinophils/100 leukocytes in Blood by Automated count 7.8 % 0.0 - 7.0 H [facility] Basophils/100 leukocytes in Blood by Automated count 0.4 % 0.0 - 2.5 [facility] %IG 0.4 % 0.0 - 0.0 H [facility] %NRBC 0.0 % 0.0 - 0.0 [facility] Neutrophils [#/volume] in Blood by Automated count 1.36 10^3/uL 2.00 - 6.90 L [facility] Lymphocytes [#/volume] in Blood by Automated count 0.27 10^3/uL 0.60 - 3.40 L [facility] Monocytes [#/volume] in Blood by Automated count 0.95 10^3/uL 0.00 - 0.90 H [facility] Eosinophils [#/volume] in Blood by Automated count 0.22 10^3/uL 0.00 - 0.70 [facility] Basophils [#/volume] in Blood by Automated count 0.01 10^3/uL 0.00 - 0.20 [facility] #IG 0.01 10^3/uL 0.00 - 0.10 [facility] #NRBC 0.00 10^3/uL 0.00 - 0.00 [facility] MANUAL DIFF NOT INDICATED [facility] RBC MORPH NOT INDICATED [facility] ID Date Data Source [id number] 08/06/2020 08:00:00 AM EDT [facility] Name Value Range Interpretation Code Description Data Maura rce(s) Supporting Document(s) BNP 1738 PG/ML 0 - 125 H [facility] willy ID Date Data Source [id number] 08/06/2020 08:00:00 AM EDT [facility] Name Value Range Interpretation Code Description Data Maura rce(s) Supporting Document(s) TROPONIN T <0.01 NG/ML 0.00 - 0.10 [facility]ital TROPONIN T0.1 ng/ml Recommended as the c linical threshold value Kathie Maxwell ID Date Data Source [id number] 08/06/2020 08:00:00 AM EDT [facility] Name Value Range Interpretation Code Description Data Maura rce(s) Supporting Document(s) Hemoglobin A1c/Hemoglobin.total in Blood 4.8 % 4.4 - 6.1 [facility] {A1]{HB] ID Date Data Source [id number] 08/06/2020 07:38:00 AM EDT [facility] Name Value Range Interpretation Code Description Data Maura rce(s) Supporting Document(s) CVE PANEL [facility] LIPID PANEL Cholesterol [Mass/volume] in Serum or Plasma 154 MG/DL 131 - 200 [facility] Deprecated Triglyceride [Mass/volume] in Serum or Plasma 130 MG/DL 3 5 - 160 [facility] HDL 63 MG/DL 29 - 86 [facility] Cholesterol in LDL [Mass/volume] in Serum or Plasma by Direc t assay 68 mg/dL 65 - 175 [facility] Cholesterol.total/Cholesterol in HDL [Mass Ratio] in Serum o r Plasma 2.4 3.2 - 4.4 L [facility] LDL/HDL 1.08 1.47 - 3.22 L [facility] ital CVE RISK CHOL/HDL LDL/HDLMEN: 1/2 AVERAGE 3.43 1.00 AVERAGE 4.97 3.55 2X AVERAGE 9.55 6.25 3X AVERAGE 23.99 7.99WOMEN: 1/2 AVERAGE 3.27 1.47 AVERAGE 4.44 3.22 2X AVERAGE 7.05 5.03 3X AVERAGE 11.04 6.14 ID Date Data Source [id number] 08/06/2020 07:38:00 AM EDT [facility] Name Value Range Interpretation Code Description Data Maura rce(s) Supporting Document(s) COMPREHENSIVE METABOLIC PANEL [facility] COMPREHENSIVE METABOLIC PANEL Sodium [Moles/volume] in Serum or Plasma 137 mEq/L 134 - 153 [facility] Potassium [Moles/volume] in Serum or Plasma 4.0 mEq/L 3.6 - 5.0 [facility] Chloride [Moles/volume] in Serum or Plasma 99 mEq/L 98 - 107 [facility] Carbon dioxide, total [Moles/volume] in Serum or Plasma 30 MEQ/L 22 - 30 [facility] Glucose [Mass/volume] in Serum or Plasma 114 MG/DL 65 - 110 H [facility] BUN 11 MG/DL 7 - 21 [facility] Creatinine [Mass/volume] in Serum or Plasma 1.2 MG/DL 0.7 - 1.5 [facility] BUN/CREAT 9 8 - 27 [facility] Protein [Mass/volume] in Serum or Plasma 6.1 G/DL 6.3 - 8.2 L [facility] Albumin [Mass/volume] in Serum or Plasma 3.4 G/DL 3.9 - 5.0 L [facility] Globulin [Mass/volume] in Serum by calculation 2.7 GM/DL 2.4 - 3.2 [facility] A/G RATIO 1.3 0.8 - 2.0 [facility] Calcium [Mass/volume] in Serum or Plasma 8.1 MG/DL 8.4 - 10.2 L [facility] Bilirubin.total [Mass/volume] in Serum or Plasma <0.7 MG/DL 0.2 - 1.3 [facility] Alkaline phosphatase [Enzymatic activity/volume] in Serum or Plasma 129 U/L 38 - 126 H [facility] Aspartate aminotransferase [Enzymatic activity/volume] in Serum or Plasma 33 U/L 5 - 40 [facility] Alanine aminotransferase [Enzymatic activity/volume] in Seru m or Plasma 22 U/L 7 - 56 [facility] Anion gap 3 in Serum or Plasma 8.0 mmol/L 8.0 - 16.0 [facility]GE 55 [facility] A[facility] AMER GFR 60 mL/min [facility] Male GFR In [...] >32 mL/min Normal ID Date Data Source [id number] 08/06/2020 07:35:00 AM EDT [facility] Name Value Range Interpretation Code Description Data Maura rce(s) Supporting Document(s) Magnesium [Mass/volume] in Serum or Plasma 1.7 MG/DL 1.7 - 2.2 [facility] ID Date Data Source [id number] 08/06/2020 12:59:00 PM EDT [facility] Value Range Interpretation Code Description Data Maura rce(s) Supporting Document(s) Cobalamin (Vitamin B12) [Mass/volume] in Serum or Plasma 475 PG/ML 232 - 1245 [facility] ID Date Data Source [id number] 08/06/2020 12:40:00 PM EDT [facility] Value Range Interpretation Code Description Data Maura rce(s) Supporting Document(s) Iron [Mass/volume] in Serum or Plasma 50 UG/DL 42 - 135 [facility] ID Date Data Source [id number] 08/05/2020 08:23:00 PM EDT [facility] 1 OrderSheet [facility] Emergency Department [address] [place] [address] Phone #: ext- [phone] 08/05/2020 20:20 Patient: CHANTALE SOLOMON Sex: F : 1965 Age: 55yWEIGHT:83.9 kg HEIGHT:60 inches BMI:36.1ALLERGIES: Penicillins, SeafoodCHIEF COMPLAINT: chest pain, discomfortDIAGNOSIS: Atrial fibrillationLAB ORDERSOrder Description Priority Entered Acknowledged InitialedCBC w Diff STAT 20:21 08/05/2020 20:26 Sandi Carmona Norma MD; Joao GallagherCMP STAT 20:21 08/05/2020 20:26 Sandi Carmona Norma MD; Joao GallagherTroponin-T STAT 20:21 08/05/2020 20:26 Sandi Carmona Norma MD; Joao GallagherTSH STAT 20:21 08/05/2020 20:26 Sandi Carmona Norma MD; Joao GallagherMagnesium STAT 20:21 08/05/2020 20:26 Sandi Carmona Norma MD; Joao GallagherBNP STAT 21:35 08/05/2020 21:41 Sandi Carmona Norma MD; Joao GallagherDIAGNOSTIC STUDY ORDERSOrder Description Priority Entered Acknowledged InitialedChest Portable 1 STAT 20:21 08/05/2020 20:37 Kristine,View Shauna Junior MD; Joao Gallagher(Oxygen?(No)) Reason for Study: Chest PainMEDICATION/IV/DRIP/FLUID ORDERSOrder Description Priority Entered Acknowledged InitialedCardizem IVP 20 20:21 08/05/2020 20:37 Kristine,mg (NOW x1) Shauna Junior MD; Joao GallagherIV NS 500 mL Bolus 20:21 08/05/2020 20:38 Kristine,: Bolus 500 mL (X1) Shauna Junior MD; Joao GallagherAmiodarone Drip IV 21:21 08/05/2020 21:26 Kristine,- Loading Dose : Shauna Junior MD; Joao GallagherBolus 150mg, thenover 15 min (NOWx1, HIGH ALERT 2 OrderSheet [facility] Emergency Department [address] [place] [address] Phone #: ext- [phone] 08/05/2020 20:20 Patient: CHANTALE SOLOMON Sex: F [...] Acknowledged Initialed[Electronically signed by Joao Carmona R.N. (22:23 08/05/2020)][Electronically signed by Shauna Junior MD (00:32 08/06/2020)][Electronically locked by Joao Carmona R.N. (22:23 08/05/2020)] Name Value Range Interpretation Code Description Data Maura rce(s) Supporting Document(s) ID Date Data Source [id number] 08/05/2020 08:23:00 PM EDT [facility] 1 Medication Reconciliation Report [facility] Emergency Department [address] [place] [address] Phone #: ext- [phone] 08/05/2020 20:20 Patient: CHANTALE SOLOMON Sex: F : 1965 Age: 55yWeight: 83.9 kgHeight/Length: 60 in.BMI: 36.1ALLERGIES: Penicillins, SeafoodThe patient's Home Medications are listed below:THE FOLLOWING MEDICATIONS NEED TO BE RECONCILED: Btstolic dilTIAZem HCl Oral Pantoprazole Sodium Oral Pharmacy [facility] Spiriva HandiHaler Inhalation Symbicort Inhalation Tylenol Oral [...] 08/05/2020 9:28:00 PM 2 Medication Reconciliation Report [facility] Department [address] [place] [address] Phone #: ext- [phone] 08/05/2020 20:20 Patient: CHANTALE SOLOMON Sex: F : 1965 Age: 55yMagnesium Sulfate [IV Drip] Drip IV bolus 0, then 2 gm 2 gm/hr, administered: 08/05/2020 9:52:00 PMThe following Medications were prescribed to the pa tient:None. Name Value Range Interpretation Code Description Data Maura rce(s) Supporting Document(s) ID Date Data Source [id number] 08/05/2020 08:23:00 PM EDT [facility] 1 Medication Administration Record [facility] Emergency Department [address] [place] [address] Phone #: ext- [phone] 08/05/2020 20:20 Patient: CHANTALE SOLOMON Sex: F : 1965 Age: 55yWeight: 83.9 kgHeight/Length: 60 inBMI: 36.1ALLERGIES: Penicillins, Seafood Date/Time Medication Administered Medication OrderedGiven CARDIZEM [IVP] (DILTIAZEM HCL) Cardizem IVP 20 mg (NOW x1)20:37 08/05/2020 Dose: 20 mg IVPGJoao stevenson R.N. Site: #1 left ACStart NS [IV] IV NS 500 mL Bolus : Bolus 19411:38 08/05/2020 Dose: IV Fluids mL (X1)Joao Carmona R.N. Rate: 500 mL/hr over 60 minute(s)---- Dispensed: 1000 mL bagContinued Upon Disposition Site: #1 left AC22:06 08/05/2020Joao Carmona R.N.Start AMIODARONE [IV DRIP] Amiodarone Drip IV - Kofambl62:26 08/05/2020 Dose: 150 mg Drip IV Dose : Bolus 150mg, then over 15GrJoao mcfarland R.N. Rate: 1 mg/min over 10 minute(s) min (NOW x1, HIGH ALERT---- Dispensed: 100 mL bag MEDICATION, Loading dose ofStop Site: #1 left AC 150 mg/100 mL over 10 epoesgo15:35 08/05/2020 (600 mL/hr))Joao Carmona R.N.Start CARDIZEM [IV DRIP] Cardizem Drip IV : 10 mg/hr (Add21:28 08/05/2020 Dose: 10 mg Drip IV 125 mg (25 mL) to 100 mL NS Joao Varela R.N. Rate: 10 mg/hr over 100 minute(s) [...] rce(s) Supporting Document(s) ID Date Data Source [id number] 08/05/2020 08:23:00 PM EDT [facility] 1 General Instructions [facility] Emergency Department [address] [place] [address] Phone #: ext- [phone] 08/05/2020 20:20 Patient: CHANTALE SOLOMON Sex: F : 1965 Age: 55yAtrial fibrillation with uncontrolled rate.(Electronically signed by Shauna Junior MD 08/06/2020 00:32) Name Value Range Interpretation Code Description Data Maura rce(s) Supporting Document(s) ID Date Data Source [id number] 08/05/2020 08:23:00 PM EDT [place] [address] Clinical Report - Nurses [facility] Emergency Department [address] [place] [address] Phone #: ext [phone] 08/05/2020 20:20 Patient: CHANTALE SOLOMON Sex: F : 1965 Age: 55yTRIAGEHistorian: patient. ( via POV c/o Increased heart rate).Acuity: LEVEL 2.This started just prior to arrival. --20:24 08/05/20 Joao Carmona R.N.20:22 08/05/20. BP: 135/97. MAP: 109. HR: 149. RR: 24. O2 saturation: 100% at 2 liters/minute. --20: Joao Carmona R.N.The patient has had weakness. --20:25 08/05/20 Joao aCrmona R.N.Chief Complaint: PALPITATIONS. --22:19 08/05/20 Joao Carmona R.N.22:19 08/05/20. BP: 0. --22:20 08/05/20 Joao Carmona R.N.22:20 08/05/20. Pain level now: 0. --22:20 08/05/20 Joao Carmona R.N.22:20 08/05/20. Temp: 97.8 F. --22:21 08/05/20 Joao Carmona R.N.Weight: 83.9 kg. Height/Length: 60 inches. BMI: 36.1. --20:23 08/05/20 Joao Carmona R.N.MedicationsdilTIAZem HCl Oral. Pantoprazole Sodium Oral. Pharmacy [facility]. Spiriva HandiHaler Inhalation. Symbicort Inhalation. Tylenol Oral. [...] harming or 2 Clinical Report - Nurses [facility] Emergency Department [address] [place] [address] Phone #: miz- [phone] 08/05/2020 20:20 [id number]: [facility] : 1965 Age: 55y killing [...] Carmona R.N. 3 Clinical Report - Nurses [facility] Emergency Department [address] [place] [address] Phone #: ext- [phone] 08/05/2020 20:20 Patient: [...] 100 minute(s) viasite #2. --21:28 08/05/20 Joao Carmona R.N.21:28 08/05/20. BP: 110/83. MAP: 92. HR: [...] Carmona R.N. 4 Clinical Report - Nurses [facility] Emergency Department [address] [place] [address] Phone #: ext- [phone] 08/05/2020 20:20 Patient: [...] 2 liters/minute. Temp: deferred. Pain level now: 0. --22:01 08/05/20 Joao Carmona R.N. Departure time: 22:10 08/05/2020. ( Care transferred to Cecilia FLORES). --22:19 08/05/20 Joao Carmona R.N. Departure time: 22:10 08/05/2020. --22:23 08/05/20 Joao Carmona R.N.Locked/Released at 08/05/2020 22:23 by Joao Carmona R.N. Name Value Range Interpretation Code Description Data Maura rce(s) Supporting Document(s) ID Date Data Source [id number] 08/05/2020 08:23:00 PM EDT [facility] 1 Clinical Report - Physicians/Mid Levels [facility] Emergency Department [address] [place] [address] Phone #: ext- [phone] 08/05/2020 20:20 Patient: [...] Septoplasty. 2 Clinical Report - Physicians/Mid Levels [facility] Emergency Department [address] [place] [address] Phone #: ext- [phone] 08/05/2020 20:20 Patient: CHANTALE SOLOMON Sex: F : 1965 Age: 55y Septoplasty. Tonsillectomy. Tubal Ligation. Medications: Btstolic. dilTIAZem HCl Oral. Pantoprazole Sodium Oral. [facility]. Sp[facility] Handi[facility]er Inhalation. Symbicort Inhalation. Tylenol Oral. [...] Tachycardia. Pulses normal. 3 Clinical Report - Physicians/[facility] Emergency Department [address] [place] [address] Phone #: ext- [phone] 08/05/2020 20:20 Patient: [...] SHAUNA COMMENT: __ 4 Clinical Report - Physicians/[facility] Emergency Department [address] [place] [address] Phone #: ext- [phone] 08/05/2020 20:20 Patient: [...] in to admit the patient. he recommended [id number] iv. labs reviewed. her magnesium was slightly [...] rce(s) Supporting Document(s) ID Date Data Source [id number] 08/05/2020 08:23:00 PM EDT [facility] CHANTALE Butler VisitID: [id number] Date: 21:33MedicationReconciliation request faxed to [employer] @ [phone]; Faxed overview to [facility] @ [phone](Electronically signed by Benjamín Shore - 08/05/2020 21:33) Name Value Range Interpretation Code Description Data Maura rce(s) Supporting Document(s) ID Date Data Source [id number] 08/05/2020 10:14:00 PM EDT [facility] Name Value Range Interpretation Code Description Data Maura rce(s) Supporting Document(s) BNP 1159 PG/ML 0 - 125 H [facility] willy ID Date Data Source [id number] 08/05/2020 10:14:00 PM [facility] Name Value Range Interpretation Code Description Data Maura rce(s) Supporting Document(s) Thyrotropin [Units/volume] in Serum or Plasma by Detec tion limit <= 0.05 mIU/L 3.01 uIU/mL 0.47 - 5.01 [facility] ID Date Data Source [id number] 08/05/2020 09:41:00 PM EDT [facility] Name Value Range Interpretation Code Description Data Maura rce(s) Supporting Document(s) COMPREHENSIVE METABOLIC PANEL [facility] COMPREHENSIVE METABOLIC PANEL Sodium [Moles/volume] in Serum or Plasma 132 mEq/L 134 - 153 L [facility] Potassium [Moles/volume] in Serum or Plasma 3.6 mEq/L 3.6 - 5.0 [facility] Chloride [Moles/volume] in Serum or Plasma 94 mEq/L 98 - 107 L [facility] Carbon dioxide, total [Moles/volume] in Serum or Plasma 24 MEQ/L 22 - 30 [facility] Glucose [Mass/volume] in Serum or Plasma 119 MG/DL 65 - 110 H [facility] BUN 11 MG/DL 7 - 21 [facility] Creatinine [Mass/volume] in Serum or Plasma 1.3 MG/DL 0.7 - 1.5 [facility] BUN/CREAT 8 8 - 27 [facility] Protein [Mass/volume] in Serum or Plasma 6.9 G/DL 6.3 - 8.2 [facility] Albumin [Mass/volume] in Serum or Plasma 3.5 G/DL 3.9 - 5.0 L [facility] Globulin [Mass/volume] in Serum by calculation 3.4 GM/DL 2.4 - 3.2 H [facility] A/G RATIO 1.0 0.8 - 2.0 [facility] Calcium [Mass/volume] in Serum or Plasma 8.1 MG/DL 8.4 - 10.2 L [facility] Bilirubin.total [Mass/volume] in Serum or Plasma 0.3 MG/DL 0.2 - 1.3 [facility] Alkaline phosphatase [Enzymatic activity/volume] in Serum or Plasma 129 U/L 38 - 126 H [facility] Aspartate aminotransferase [Enzymatic activity/volume] in Serum or Plasma 35 U/L 5 - 40 [facility] Alanine aminotransferase [Enzymatic activity/volume] in Seru m or Plasma 23 U/L 7 - 56 [facility] Anion gap 3 in Serum or Plasma 14.0 mmol/L 8.0 - 16.0 [facility] AGE 55 yrs [facility] NON-AA GFR 45 mL/min [facility]illy AFR AMER GFR 55 mL/min [facility] Male GFR In [...] >32 mL/min Normal ID Date Data Source [id number] 08/05/2020 09:40:00 PM [facility] Name Value Range Interpretation Code Description Data Maura rce(s) Supporting Document(s) Magnesium [Mass/volume] in Serum or Plasma 1.2 MG/DL 1.7 - 2.2 L [facility] ID Date Data Source [id number] 08/05/2020 09:27:00 PM [facility] Name Value Range Interpretation Code Description Data Maura rce(s) Supporting Document(s) TROPONIN T <0.01 NG/ML 0.00 - 0.10 [facility] ospital TROPONIN T0.1 ng/ml Recommended as the c linical threshold value forTroponin T. ID Date Data Source [id number] 08/05/2020 09:01:00 PM [facility] Name Value Range Interpretation Code Description Data Maura rce(s) Supporting Document(s) CBC W/AUTOMATED DIFF [facility] COMPLETE BLOOD COUNT Leukocytes [#/volume] in Blood by Automated count 3.2 10^3/uL 4.2 - 1 1.0 L [facility] Erythrocytes [#/volume] in Blood by Automated count 2.66 10^6/uL 4. 20 - 5.40 L [facility] Hemoglobin [Mass/volume] in Blood 10.1 g/dL 12.0 - 16.0 L [facility] Hematocrit [Volume Fraction] of Blood by Automated count 28.9 % 3 7.0 - 47.0 L [facility] Erythrocyte mean corpuscular volume [Entitic volume] b y Automated count 108.6 fL 81.0 - 101 H [facility] Erythrocyte mean corpuscular hemoglobin [Entitic mass] by Automated count 38.0 pg 27.0 - 34.0 H [facility] Erythrocyte mean corpuscular hemoglobin concentration [Mass/volume] by Automated count 34.9 g/dL 31.0 - 36.0 [facility] Erythrocyte distribution width [Ratio] by Automated count 13.6 % 11.5 - 14.5 [facility] Platelets [#/volume] in Blood by Automated count 47 10^3/uL 150 - 450 L [facility] Platelet mean volume [Entitic volume] in Blood by Automated count 10.0 fL 7.4 - 10.4 [facility] Neutrophils/100 leukocytes in Blood by Automated count 34.4 % 37. 0 - 80.0 L [facility] Lymphocytes/100 leukocytes in Blood by Manual count 22.0 % 25.0 - 40.0 L [facility] Monocytes/100 leukocytes in Blood by Automated count 36.8 % 3.0 - 8.0 H [facility] Eosinophils/100 leukocytes in Blood by Automated count 5.9 % 0.0 - 7.0 [facility] 0.6 %IG 0.3 % 0.0 - [facility].0 [facility] 0.0 % 0.0 - 0.0 [facility] al Neutrophils [#/volume] in Blood by Automated count 1.11 10^3/uL 2.00 - 6.90 L [facility] Lymphocytes [#/volume] in Blood by Automated count 0.71 10^3/uL 0.60 - 3.40 [facility] Monocytes [#/volume] in Blood by Automated count 1.19 10^3/uL 0.00 - 0.90 H [facility] Eosinophils [#/volume] in Blood by Automated count 0.19 10^3/uL 0.00 - 0.70 [facility] Basophils [#/volume] in Blood by Automated count 0.02 10^3/uL 0.00 - 0.20 [facility] #IG 0.01 10^3/uL 0.00 - 0.10 [facility] #NRBC 0.00 10^3/uL 0.00 - 0.00 [facility]sp[facility] MANUAL DIFF SEE BELOW [facility] ital Segmented neutrophils/100 leukocytes in Blood by Manual count 36 % 37 - 80 L [facility] Hospital %LYMPH 38 % 25 - 40 [facility] Hospit al %MONO 21 % 3 - 8 H [facility] Hospit al %EOS 4 % 0 - 7 [facility] Hospit al 1 RBC MORPH SEE BELOW [facility] al Anisocytosis [Presence] in Blood by Light microscopy 1+ SHAUNA L: NONE SEEN A [facility] Macrocytes [Presence] in Blood by Light microscopy 2+ NORMAL: NONE SEEN A [facility] HYPO 1+ NORMAL: NONE SEEN A [facility] { SICKLE CELL (NORMAL: NONE SEEN ) Platelet adequacy [Presence] in Blood by Light microscopy DE CREASED NORMAL: NORMAL A [facility] COMMENT: ID Date Data Source [id number] 08/02/2020 01:04:00 PM EDT [facility] [address] [place] [address] PHONE: [phone] FAX: [phone] Name .................. : JUANITO Daniels Acct Number.................. : [id number] ROOM. ................. : Number ................... : [id number] Stay type ............. : O/P Discharge Date......... ... : 08/01/20 Admit Date ......... : 08/01/20 Admit Phys .................... : MILVIA JOYCE Date of ....... : 1965 Family Phys ................... : REGINE GAIL Phone .................. : [phone] Age ................................ : 55 Film# .................. .:[id number] Sex ................................. : F Unsigned transcriptions are preliminary reports and do not represent a medical or legal document TIBULA/FIBULA - BILATERAL [id number] COMPLETE:08/01/20 11:39 [facility] [address] (REASON FOR PROCESS: LEG PAIN BILATERAL TIBIA [...] By Everett Jimenez MD , 08/02/20 13:04, MARY Transcribe Initials: SSR, Transcribe Date: 08/01/20 14:16, Dictation Date: Copy for: MILVIA PIZANO via fax Copy for: [address] [place] [address] REC Page 1 of 1 Name Value Range Interpretation Code Description Data Maura rce(s) Supporting Document(s) ID Date Data Source [id number] 08/02/2020 01:04:00 PM EDT [facility] [address] [place] [address] PHONE: [phone] FAX: [phone] Name .................. : JUANITO Daniels Acct Number.................. : [id number] ROOM. ................. : Number ................... : [id number] Stay type ............. : O/P Discharge Date......... ... : 08/01/20 Admit Date ......... : 08/01/20 Admit Phys .................... : MILVIA JOYCE Date of ....... : 1965 Family Phys ................... : SEQUEIRA Phone .................. : [phone] Age ................................ : 55 Film# .................. .:[id number] Sex ................................. : F Unsigned transcriptions are preliminary reports and do not represent a medical or legal document CHEST 2 VIEWS [id number] COMPLETE:08/01/20 11:39 [facility] [address] (REASON FOR CHEST: COUGH TWO VIEW CHEST, [...] MD , 08/02/20 13:04, KGG Transcribe Initials: [facility], Transcribe Date: 08/01/20 14:13, Dictation Date: Copy for: MILVIA PIZANO via fax Copy for: [address] [place] [address] REC Page 1 of 1 Name Value Range Interpretation Code Description Data Maura rce(s) Supporting Document(s) Procedure Social History Code Duration Value Status Description Data Source(s ) Alcohol intake 08/22/2021 12:00:00 AM EDT Ex-drinker (finding) comp leted Ex- drinker (finding) [facility] Tobacco use and exposure 08/17/2021 12:00:00 AM EDT Never used co mpleted Never used [facility] Cigarette pack-years 08/17/2021 12:00:00 AM EDT UNK completed [facility] Cigarettes smoked current (pack per day) - Reported 08/17/20 21 12:00:00 AM EDT UNK completed [facility] Smoking 08/17/2021 12:00:00 AM EDT Former smoker completed Former smoker [facility] Alcohol intake 08/17/2021 12:00:00 AM EDT Ex-drinker (finding) comp leted Ex- drinker (finding) [facility] Smoking 07/20/2021 12:00:00 AM EDT Patient is a former smoker completed Patient is a former smoker [facility] ([facility], ) Smoking 06/15/2021 03:41:58 PM EDT Ex-smoker (finding) complet ed Ex-smoker (finding) CJ (Cesar Barrow MD [facility]) Smoking 05/24/2021 12:00:00 AM EDT Patient is a former smoker completed Patient is a former smoker [facility] ([facility]iac [facility]) Smoking 11/23/2020 11:01:50 AM EST Smokes tobacco daily (findi ng) completed Smokes tobacco daily (finding) CJ (Cesar Barrow MD [facility]) Smoking 10/05/2020 12:46:34 PM EST Ex-smoker (finding) complet ed Ex-smoker (finding) CJ (Cesar Barrow MD [facility]) Vital Signs ID Date Data Source UNK Name Value Range Interpretation Code Description Data Source(s) Systolic blood pressure 114 mm[Hg] 114 mm[Hg] [facility] Diastolic blood pressure 76 mm[Hg] 76 mm[Hg] [facility] Heart rate 94 /min 94 /min [facility] Body temperature 37.61 Salma 37.61 Salma [facility] Respiratory rate 16 /min 16 /min [facility] Oxygen saturation in Arterial blood by Pulse oximetry 98 % 98 % [facility] Body height 152.4 cm 152.4 cm [facility] Body weight 74.844 kg 74.844 kg [facility] Body mass index (BMI) [Ratio] 32.22 kg/m2 32.22 kg/m2 [facility] Systolic blood pressure 106 mm[Hg] 106 mm[Hg] [facility] Diastolic blood pressure 66 mm[Hg] 66 mm[Hg] [facility] Heart rate 77 /min 77 /min [facility] Body height 152.4 cm 152.4 cm [facility] Body weight 74.118 kg 74.118 kg [facility] Body mass index (BMI) [Ratio] 31.91 kg/m2 31.91 kg/m2 [facility] Oxygen saturation in Arterial blood by Pulse oximetry 99 % 99 % [facility] Diastolic blood pressure 70 mm[Hg] 70 mm[Hg] [facility] ([facility]) Body weight 166.00 [lb_av] 166.00 [lb_av] [facility] ([facility]) Body weight 75.298 kg 75.298 kg [facility] ([facility]) Body surface area Derived from formula 1.72 m2 1.72 m2 [facility] ([facility]) Heart rate 78 /min 78 /min [facility] ([facility]) Systolic blood pressure 110 mm[Hg] 110 mm[Hg] [facility] ([facility]) Oxygen saturation in Arterial blood by Pulse oximetry 96 % 96 % [facility] ([facility]) Body height 60 [in_i] 60 [in_i] [facility] ([facility]) 5'0" Body mass index (BMI) [Ratio] 32.4 kg/m2 32.4 k g/m2 [facility] ([facility]) [place] body weight 100 [lb_av] 100 [lb_av] [facility] Heart rate 94 /min 94 /min [facility] ([facility]sm[facility] Al[facility]) Oxygen saturation in Arterial blood by Pulse oximetry 96 % 96 % [facility] (Osmel Alvarez [facility]) Body height 60 [in_i] 60 [in_i] [facility] (Osmel Alvarez [facility]) 5'0" Body weight 166.00 [lb_av] 166.00 [lb_av] [facility] (Osmel Alvarez [facility]) Body mass index (BMI) [Ratio] 32.4 kg/m2 32.4 k g/m2 [facility] (Osmel Alvarez [facility]) Body temperature 97.5 [degF] 97.5 [degF] [facility] (Osmel Alvarez MD) Systolic blood pressure 108 mm[Hg] 108 mm[Hg] [facility] Diastolic blood pressure 71 mm[Hg] 71 mm[Hg] [facility] (Osmel Alvarez [facility]) Body weight 76.829 kg 76.829 kg [facility] ([facility]) Body surface area Derived from formula 1.74 m2 1.74 m2 [facility] ([facility]) Diastolic blood pressure 68 mm[Hg] 68 mm[Hg] [facility] ([facility]) Heart rate 80 /min 80 /min [facility] ([facility]) Oxygen saturation in Arterial blood by Pulse oximetry 992 % 992 % [facility] ([facility]) Body height 60 [in_i] 60 [in_i] [facility] ([facility]) 5'0" Body weight 169.38 [lb_av] 169.38 [lb_av] [facility] ([facility]) Body mass index (BMI) [Ratio] 33.1 kg/m2 33.1 k g/m2 [facility] ([facility]) [place] body weight 100 [lb_av] 100 [lb_av] [facility] ([facility]) Systolic blood pressure 115 mm[Hg] 115 mm[Hg] M [facility] ([facility]) Body weight 172.00 [lb_av] 172.00 [lb_av] [facility] (Osmel Alvarez [facility]) Systolic blood pressure 116 mm[Hg] 116 mm[Hg] [facility] Oxygen saturation in Arterial blood by Pulse oximetry 99 % 99 % [facility] ([facility]sm[facility] Al[facility]) Body mass index (BMI) [Ratio] 33.6 kg/m2 33.6 k g/m2 [facility] ([facility]) Body height 60 [in_i] 60 [in_i] [facility] (Osmel Alvarez [facility]) 5'0" Body temperature 97.5 [degF] 97.5 [degF] [facility] ([facility]) Heart rate 87 /min 87 /min [facility] ([facility]) Diastolic blood pressure 69 mm[Hg] 69 mm[Hg] [facility] (Osmel Alvarez [facility]) Body surface area Derived from formula 1.76 m2 1.76 m2 [facility] ([facility]) Heart rate 81 /min 81 /min [facility] ([facility]) Diastolic blood pressure 68 mm[Hg] 68 mm[Hg] [facility] ([facility]) Systolic blood pressure 100 mm[Hg] 100 mm[Hg] [facility] Oxygen saturation in Arterial blood by Pulse oximetry 982 % 982 % [facility] ([facility]) Body height 60 [in_i] 60 [in_i] [facility] ([facility]) 5'0" Body weight 173.00 [lb_av] 173.00 [lb_av] [facility] ([facility]) Body mass index (BMI) [Ratio] 33.8 kg/m2 33.8 k g/m2 [facility] ([facility]) [place] body weight 100 [lb_av] 100 [lb_av] [facility] ([facility]) Body weight 78.473 kg 78.473 kg [facility] ([facility]) Systolic blood pressure 102 mm[Hg] 102 mm[Hg] [facility] ([facility]) Diastolic blood pressure 62 mm[Hg] 62 mm[Hg] [facility] ([facility]) Heart rate 82 /min 82 /min [facility] ([facility]) Oxygen saturation in Arterial blood by Pulse oximetry 942 % 942 % [facility] ([facility]) Body height 60 [in_i] 60 [in_i] [facility] ([facility]) 5'0" Body weight 172.00 [lb_av] 172.00 [lb_av] [facility] ([facility]) [place] body weight 100 [lb_av] 100 [lb_av] [facility] ([facility]) Body weight 78.019 kg 78.019 kg [facility] ([facility]) Body surface area Derived from formula 1.75 m2 1.75 m2 [facility] ([facility]) Body mass index (BMI) [Ratio] 33.6 kg/m2 33.6 k g/m2 [facility] ([facility]) Body height 60 [in_i] 60 [in_i] [facility] ([facility]) 5'0" [place] body weight 100 [lb_av] 100 [lb_av] [facility] ([facility]) Body weight 78.019 kg 78.019 kg [facility] ([facility]) Body weight 172.00 [lb_av] 172.00 [lb_av] [facility] ([facility]) Body mass index (BMI) [Ratio] 33.6 kg/m2 33.6 k g/m2 [facility] ([facility]) Body surface area Derived from formula 1.75 m2 1.75 m2 [facility] ([facility]) Systolic blood pressure 110 mm[Hg] 110 mm[Hg] [facility] ([facility]) Diastolic blood pressure 60 mm[Hg] 60 mm[Hg] [facility] ([facility]) Heart rate 91 /min 91 /min [facility] ([facility]) Oxygen saturation in Arterial blood by Pulse oximetry 983 % 983 % [facility] ([facility]) Oxygen saturation in Arterial blood by Pulse oximetry 97 % 97 % [facility] (Osmel Alvarez [facility]) 3l Body temperature 96.8 [degF] 96.8 [degF] [facility] ([facility]) Body weight 174.50 [lb_av] 174.50 [lb_av] [facility] ([facility]) Body height 60 [in_i] 60 [in_i] [facility] ([facility]) 5'0" Body mass index (BMI) [Ratio] 34.1 kg/m2 34.1 k g/m2 [facility] ([facility]) Systolic blood pressure 108 mm[Hg] 108 mm[Hg] M [facility] ([facility]) Diastolic blood pressure 72 mm[Hg] 72 mm[Hg] [facility] ([facility]) Heart rate 95 /min 95 /min [facility] ([facility]) Oxygen saturation in Arterial blood by Pulse oximetry 99 % 99 % [facility] ([facility]) Body height 60 [in_i] 60 [in_i] [facility] ([facility]) 5'0" Body weight 176.00 [lb_av] 176.00 [lb_av] [facility] ([facility]) Body mass index (BMI) [Ratio] 34.4 kg/m2 34.4 k g/m2 [facility] ([facility]) Body temperature 97.5 [degF] 97.5 [degF] [facility] ([facility]) Systolic blood pressure 130 mm[Hg] 130 mm[Hg] M [facility] ([facility]) Diastolic blood pressure 84 mm[Hg] 84 mm[Hg] [facility] ([facility]) Heart rate 85 /min 85 /min [facility] ([facility]) Body height 60 [in_i] 60 [in_i] [facility] ([facility]) 5'0" Body weight 237.25 [lb_av] 237.25 [lb_av] [facility] ([facility]) Body mass index (BMI) [Ratio] 46.3 kg/m2 46.3 k g/m2 [facility] ([facility]) Body temperature 97.9 [degF] 97.9 [degF] [facility] ([facility]) Systolic blood pressure 138 mm[Hg] 138 mm[Hg] M [facility] ([facility]) Diastolic blood pressure 85 mm[Hg] 85 mm[Hg] [facility] ([facility]) Heart rate 73 /min 73 /min [facility] ([facility]) Oxygen saturation in Arterial blood by Pulse oximetry 98 % 98 % [facility] ([facility]) Heart rate 90 /min 90 /min [facility] ([facility] Systolic blood pressure--sitting 120 mm[Hg] 120 mm[Hg] [facility] ([facility] Diastolic blood pressure--sitting 70 mm[Hg] 70 mm[Hg] [facility] [facility] Body mass index (BMI) [Ratio] 34.8 kg/m2 34.8 k g/m2 [facility] ([facility]) Oxygen saturation in Arterial blood by Pulse oximetry 98 % 98 % MED[facility] ([facility]) Body weight 178.12 [lb_av] 178.12 [lb_av] MEDEN T ([facility]) Body surface area Derived from formula 1.78 m2 1.78 m2 [facility] ([facility]) Body height 60 [in_i] 60 [in_i] [facility] ([facility] 5'0" Diastolic blood pressure 66 mm[Hg] 66 mm[Hg] [facility] ([facility]) Body height 60 [in_i] 60 [in_i] [facility] ([facility]) 5'0" Body weight 179.12 [lb_av] 179.12 [lb_av] MEDEN T (Osmel Alvarez [facility]) Body mass index (BMI) [Ratio] 35.0 kg/m2 35.0 k g/m2 [facility] ([facility] Al[facility]) Body temperature 97.3 [degF] 97.3 [degF] [facility] ([facility]) Systolic blood pressure 105 mm[Hg] 105 mm[Hg] M EDENT ([facility]el Alvarez [facility]) Heart rate 87 /min 87 /min [facility] ([facility] Alvarez [facility]) Oxygen saturation in Arterial blood by Pulse oximetry 99 % 99 % [facility] (Osmel Alvarez [facility]) 3 Liter N/C Respiratory rate 18 /min 18 /min [facility] ( Osmel Alvarez [facility]) Body height 60 [in_i] 60 [in_i] [facility] ([facility], ) 5'0" Body weight 178.00 [lb_av] 178.00 [lb_av] MEDEN T ([facility], ) Body mass index (BMI) [Ratio] 34.8 kg/m2 34.8 k g/m2 [facility] ([facility], ) [place] body weight 100 [lb_av] 100 [lb_av] MEDEN T ([facility]) Body weight 80.741 kg 80.741 kg [facility] ([facility]) Body surface area Derived from formula 1.78 m2 1.78 m2 [facility] ([facility]) [place] body weight 100 [lb_av] 100 [lb_av] MEDEN T ([facility]) Body weight 80.741 kg 80.741 kg [facility] ([facility]) Body height 60 [in_i] 60 [in_i] [facility] ([facility]) 5'0" Heart rate 91 /min 91 /min [facility] ([facility]) Oxygen saturation in Arterial blood by Pulse oximetry 992 % 992 % [facility] ([facility]) Body temperature 97.3 [degF] 97.3 [degF] [facility] ([facility]) Body temperature 97.3 [degF] 97.3 [degF] [facility] ([facility]) Oxygen saturation in Arterial blood by Pulse oximetry 992 % 992 % [facility] ([facility]) Body weight 178.00 [lb_av] 178.00 [lb_av] MEDEN T ([facility]) Body surface area Derived from formula 1.78 m2 1.78 m2 [facility] ([facility]) Body mass index (BMI) [Ratio] 34.8 kg/m2 34.8 k g/m2 [facility] ([facility]) Systolic blood pressure 110 mm[Hg] 110 mm[Hg] EDENT ([facility]) Diastolic blood pressure 60 mm[Hg] 60 mm[Hg] [facility] ([facility]) Body weight 178.00 [lb_av] 178.00 [lb_av] MEDEN T ([facility]) Body height 60 [in_i] 60 [in_i] [facility] (Osmel Al[facility]) 5'0" Body mass index (BMI) [Ratio] 34.8 kg/m2 34.8 k g/m2 [facility] ([facility]sm[facility] Al[facility]) Body temperature 96.8 [degF] 96.8 [degF] [facility] ([facility]smel Alvarez [facility]) Systolic blood pressure 109 mm[Hg] 109 mm[Hg] M EDENT ([facility] Al[facility]) Diastolic blood pressure 77 mm[Hg] 77 mm[Hg] [facility] ([facility]) Heart rate 102 /min 102 /min [facility] ([facility] Al[facility]) Oxygen saturation in Arterial blood by Pulse oximetry 99 % 99 % [facility] ([facility]sm[facility] Alvarez [facility]) Oxygen saturation in Arterial blood by Pulse oximetry 99 % 99 % [facility] ([facility] Alvarez [facility]) Body mass index (BMI) [Ratio] 35.2 kg/m2 35.2 k g/m2 [facility] ([facility] Alvarez [facility]) Systolic blood pressure 131 mm[Hg] 131 mm[Hg] M EDENT ([facility] Al[facility]) Diastolic blood pressure 84 mm[Hg] 84 mm[Hg] [facility] ([facility]) Heart rate 108 /min 108 /min [facility] ([facility]) Body temperature 97.7 [degF] 97.7 [degF] [facility] ([facility]) Body weight 180.50 [lb_av] 180.50 [lb_av] MEDEN T ([facility] Al[facility]) Body height 60 [in_i] 60 [in_i] [facility] ([facility]) 5'0" Heart rate 116 /min 116 /min [facility] ([facility] Alvarez [facility]) Oxygen saturation in Arterial blood by Pulse oximetry 99 % 99 % [facility] ([facility] Al[facility]) Body height 60 [in_i] 60 [in_i] [facility] ([facility]) 5'0" Body weight 178.25 [lb_av] 178.25 [lb_av] MEDEN T (Osm[facility] Alvarez [facility]) Body mass index (BMI) [Ratio] 34.8 kg/m2 34.8 k g/m2 [facility] ([facility]) Body temperature 97.5 [degF] 97.5 [degF] [facility] ([facility]) Systolic blood pressure 117 mm[Hg] 117 mm[Hg] M EDENT ([facility]) Diastolic blood pressure 82 mm[Hg] 82 mm[Hg] [facility] ([facility]) Body height 60 [in_i] 60 [in_i] [facility] ([facility]) 5'0" Body temperature 97.7 [degF] 97.7 [degF] [facility] ([facility] Al[facility]) Systolic blood pressure 145 mm[Hg] 145 mm[Hg] M EDENT ([facility]) Diastolic blood pressure 87 mm[Hg] 87 mm[Hg] [facility] ([facility]) Heart rate 115 /min 115 /min [facility] ([facility]) Oxygen saturation in Arterial blood by Pulse oximetry 98 % 98 % [facility] ([facility]) 2 L Body height 60 [in_i] 60 [in_i] [facility] ([facility]) 5'0" Body weight 183.00 [lb_av] 183.00 [lb_av] MEDEN T ([facility]) Body mass index (BMI) [Ratio] 35.7 kg/m2 35.7 k g/m2 [facility] ([facility]) Body temperature 97.7 [degF] 97.7 [degF] [facility] ([facility]) Systolic blood pressure 118 mm[Hg] 118 mm[Hg] M EDENT ([facility] Alvarez [facility]) Diastolic blood pressure 72 mm[Hg] 72 mm[Hg] [facility] ([facility]) Heart rate 103 /min 103 /min [facility] ([facility] Al[facility]) Oxygen saturation in Arterial blood by Pulse oximetry 99 % 99 % [facility] ([facility]smel Alvarez [facility]) Diastolic blood pressure 76 mm[Hg] 76 mm[Hg] [facility] (Osmel Alvarez [facility]) Heart rate 114 /min 114 /min [facility] (Osmel Alvarez [facility]) Oxygen saturation in Arterial blood by Pulse oximetry 96 % 96 % [facility] (Osmel Alvarez MD) 2 liters NC Respiratory rate 22 /min 22 /min [facility] ( Osm[facility] Alvarez [facility]) Body height 60 [in_i] 60 [in_i] [facility] ([facility]) 5'0" Body weight 180.12 [lb_av] 180.12 [lb_av] MEDEN T ([facility]) Body mass index (BMI) [Ratio] 35.2 kg/m2 35.2 k g/m2 [facility] ([facility]) Body temperature 97.2 [degF] 97.2 [degF] [facility] ([facility]) Systolic blood pressure 122 mm[Hg] 122 mm[Hg] M EDENT ([facility]) Body weight 179.25 [lb_av] 179.25 [lb_av] MEDEN T ([facility]) Body height 60 [in_i] 60 [in_i] [facility] ([facility]) 5'0" Body mass index (BMI) [Ratio] 35.0 kg/m2 35.0 k g/m2 [facility] ([facility]) Body temperature 97.5 [degF] 97.5 [degF] [facility] ([facility]) Systolic blood pressure 118 mm[Hg] 118 mm[Hg] M EDENT ([facility]) Diastolic blood pressure 78 mm[Hg] 78 mm[Hg] [facility] ([facility]) Heart rate 103 /min 103 /min [facility] ([facility]sm[facility] Alvarez [facility]) Oxygen saturation in Arterial blood by Pulse oximetry 99 % 99 % [facility] (Osmel Alvarez MD) 2 liters N/C Respiratory rate 20 /min 20 /min [facility] ( Osmel Alvarez MD) Systolic blood pressure 102 mm[Hg] 102 mm[Hg] M EDENT ([facility], ) Diastolic blood pressure 82 mm[Hg] 82 mm[Hg] [facility] ([facility], ) Oxygen saturation in Arterial blood by Pulse oximetry 1002 % 1002 % [facility] ([facility]) Body height 60 [in_i] 60 [in_i] [facility] ([facility]) 5'0" Body weight 178.00 [lb_av] 178.00 [lb_av] MEDEN T ([facility]) Body mass index (BMI) [Ratio] 34.8 kg/m2 34.8 k g/m2 [facility] ([facility]) [place] body weight 100 [lb_av] 100 [lb_av] MEDEN T ([facility]) Body weight 80.741 kg 80.741 kg [facility] ([facility]) Body surface area Derived from formula 1.78 m2 1.78 m2 [facility] ([facility]) Heart rate 87 /min 87 /min [facility] ([facility]) Oxygen saturation in Arterial blood by Pulse oximetry 1002 % 1002 % [facility] ([facility]) Body height 60 [in_i] 60 [in_i] [facility] ([facility]) 5'0" Body weight 178.00 [lb_av] 178.00 [lb_av] MEDEN T ([facility]) Body mass index (BMI) [Ratio] 34.8 kg/m2 34.8 k g/m2 [facility] ([facility]) [place] body weight 100 [lb_av] 100 [lb_av] [facility] Body weight 80.741 kg 80.741 kg [facility] ([facility]) Body surface area Derived from formula 1.78 m2 1.78 m2 [facility] ([facility]) Systolic blood pressure 110 mm[Hg] 110 mm[Hg] [facility]) Diastolic blood pressure 70 mm[Hg] 70 mm[Hg] [facility] ([facility]) Heart rate 103 /min 103 /min [facility] ([facility]) Oxygen saturation in Arterial blood by Pulse oximetry 992 % 992 % [facility] ([facility]) Body temperature 98.6 [degF] 98.6 [degF] [facility] ([facility]) Body weight 177.00 [lb_av] 177.00 [lb_av] MEDEN T ([facility]) Body mass index (BMI) [Ratio] 34.6 kg/m2 34.6 k g/m2 [facility] [place] body weight 100 [lb_av] 100 [lb_av] MEDEN T ([facility]) Body weight 80.287 kg 80.287 kg [facility] ([facility]) Body surface area Derived from formula 1.77 m2 1.77 m2 [facility] ([facility]) Body height 60 [in_i] 60 [in_i] [facility] ([facility]) 5'0" Oxygen saturation in Arterial blood by Pulse oximetry 97 % 97 % [facility] ([facility]) Body height 60 [in_i] 60 [in_i] [facility] ([facility]) 5'0" Heart rate 100 /min 100 /min [facility] ([facility]) Body weight 178.00 [lb_av] 178.00 [lb_av] MEDEN T ([facility]) Body mass index (BMI) [Ratio] 34.8 kg/m2 34.8 k g/m2 [facility] ([facility]) Body temperature 97.7 [degF] 97.7 [degF] [facility] ([facility]) Systolic blood pressure 133 mm[Hg] 133 mm[Hg] [facility] ([facility] Al[facility]) Diastolic blood pressure 84 mm[Hg] 84 mm[Hg] [facility] ([facility]) [place] body weight 100 [lb_av] 100 [lb_av] MEDEN T ([facility]) Body weight 80.287 kg 80.287 kg [facility] ([facility]) Body surface area Derived from formula 1.77 m2 1.77 m2 [facility] ([facility]) Body height 60 [in_i] 60 [in_i] [facility] ([facility]) 5'0" Body weight 177.00 [lb_av] 177.00 [lb_av] MEDEN T ([facility]) Body mass index (BMI) [Ratio] 34.6 kg/m2 34.6 k g/m2 [facility] ([facility]) Oxygen saturation in Arterial blood by Pulse oximetry 953 % 953 % [facility] ([facility]) Systolic blood pressure 122 mm[Hg] 122 mm[Hg] M [facility]) Diastolic blood pressure 78 mm[Hg] 78 mm[Hg] [facility] ([facility]) Heart rate 94 /min 94 /min [facility] ([facility]) Body mass index (BMI) [Ratio] 34.6 kg/m2 34.6 k g/m2 [facility] ([facility]) Body height 60 [in_i] 60 [in_i] [facility] ([facility]) 5'0" Body weight 177.00 [lb_av] 177.00 [lb_av] [facility] [place] body weight 100 [lb_av] 100 [lb_av] [facility] Body weight 80.287 kg 80.287 kg [facility] ([facility]) Body surface area Derived from formula 1.77 m2 1.77 m2 [facility] ([facility]) Diastolic blood pressure 64 mm[Hg] 64 mm[Hg] [facility] ([facility]) Oxygen saturation in Arterial blood by Pulse oximetry 99 % 99 % [facility] ([facility]) Body weight 181.00 [lb_av] 181.00 [lb_av] MED[facility] T ([facility] Al[facility]) Body height 60 [in_i] 60 [in_i] [facility] ([facility]) 5'0" Body mass index (BMI) [Ratio] 35.3 kg/m2 35.3 k g/m2 [facility] ([facility]) Body temperature 97.5 [degF] 97.5 [degF] [facility] ([facility] Al[facility]) Systolic blood pressure 98 mm[Hg] 98 mm[Hg] [facility] ([facility]) Heart rate 69 /min 69 /min [facility] (Osmel Alvarez MD) Heart rate 70 /min 70 /min [facility] ([facility]) Systolic blood pressure 133 mm[Hg] 133 mm[Hg] [facility] ([facility], [facility]) Respiratory rate 18 /min 18 /min [facility] ( [facility]) Body temperature 95.5 [degF] 95.5 [degF] [facility] ([facility]) Body weight 185.00 [lb_av] 185.00 [lb_av] MEDEN T ([facility]) Body mass index (BMI) [Ratio] 36.1 kg/m2 36.1 k g/m2 [facility] ([facility]) Diastolic blood pressure 83 mm[Hg] 83 mm[Hg] [facility] ([facility]) Oxygen saturation in Arterial blood by Pulse oximetry 100 % 100 % [facility] ([facility]) Body height 60 [in_i] 60 [in_i] [facility] ([facility]) 5'0" Diastolic blood pressure 80 mm[Hg] 80 mm[Hg] [facility] ([facility]) Heart rate 74 /min 74 /min [facility] ([facility]) Body height 60 [in_i] 60 [in_i] [facility] ([facility]) 5'0" Body mass index (BMI) [Ratio] 36.7 kg/m2 36.7 k g/m2 [facility] ([facility]) Oxygen saturation in Arterial blood by Pulse oximetry 96 % 96 % [facility] ([facility]) Body weight 188.00 [lb_av] 188.00 [lb_av] MEDEN T ([facility]) Body temperature 97.5 [degF] 97.5 [degF] [facility] ([facility]) Systolic blood pressure 130 mm[Hg] 130 mm[Hg] M EDENT ([facility]) Body height 60 [in_i] 60 [in_i] [facility] ([facility]) 5'0" Body weight 185.00 [lb_av] 185.00 [lb_av] MEDEN T ([facility]) Body mass index (BMI) [Ratio] 36.1 kg/m2 36.1 k g/m2 [facility] ([facility]) Body temperature 97.7 [degF] 97.7 [degF] [facility] ([facility]) Systolic blood pressure 139 mm[Hg] 139 mm[Hg] M EDENT ([facility]) Diastolic blood pressure 85 mm[Hg] 85 mm[Hg] [facility] ([facility] Al[facility]) Heart rate 73 /min 73 /min [facility] ([facility]sm[facility] Al[facility]) Oxygen saturation in Arterial blood by Pulse oximetry 99 % 99 % [facility] ([facility] Alvarez [facility]) 2l Body height 60 [in_i] 60 [in_i] [facility] ([facility]) 5'0" Body weight 192.00 [lb_av] 192.00 [lb_av] [facility] Body mass index (BMI) [Ratio] 37.5 kg/m2 37.5 k g/m2 [facility] ([facility]) [place] body weight 100 [lb_av] 100 [lb_av] [facility] Body weight 87.091 kg 87.091 kg [facility] ([facility]) ID Date Data Source [id number] 08/09/2021 08:14:13 AM EDT [facility] Name Value Range Interpretation Code Description Data Source(s) WEIGHT RECORDED 164.30 pounds 164.30 pounds [facility] Height 60 Inches 060 Inches [facility] ID Date Data Source [id number] 05/18/2021 11:18:37 AM EDT [facility] Name Value Range Interpretation Code Description Data Source(s) WEIGHT RECORDED 179.90 pounds 179.90 pounds [facility] Height 60 Inches 060 Inches [facility] Hospital ID Date Data Source [id number] 12/27/2020 10:47:31 AM [facility] Hospital Name Value Range Interpretation Code Description Data Source(s) WEIGHT RECORDED 186.00 pounds 186.00 pounds [facility] Height 60 Inches 060 Inches [facility] Hospital ID Date Data Source [id number] 03/26/2021 09:46:56 AM EDT [facility] Name Value Range Interpretation Code Description Data Source(s) WEIGHT RECORDED 183.40 pounds 183.40 pounds [facility] Height 60 Inches 060 Inches [facility] Hospital ID Date Data Source [id number] 10/05/2020 10:18:21 AM [facility] Hospital Name Value Range Interpretation Code Description Data Source(s) WEIGHT RECORDED 188.20 pounds 188.20 pounds [facility] Height 60 Inches 060 Inches [facility] Hospital ID Date Data Source [id number] 08/23/2020 09:36:26 AM EDT [facility] Name Value Range Interpretation Code Description Data Source(s) WEIGHT RECORDED 194.00 pounds 194.00 pounds [facility] Height 60 Inches 060 Inches [facility] Patient Treatment Plan of Care Planned Activity Planned Date Details Description Data Source (s) normal saline flush 0.9 % injection 3 mL 08/22/2021 02:00:00 PM EDT [facility] Albuterol 0.833 MG/ML / Ipratropium [place] 0.167 MG/M L Inhalant Solution 08/22/2021 11:05:57 AM EDT [facility] 10 ML Atropine Sulfate 0.1 MG/ML Prefilled Syringe 08/22/2021 11 :05:56 AM EDT [facility] normal saline flush 0.9 % injection 3 mL 08/22/2021 08:00:00 AM EDT [facility] normal saline flush 0.9 % injection 3 mL 08/22/2021 08:00:00 AM EDT [facility]
[2021-08-25] MEDS ORDERED: IPRATROPIUM 0.5MG/ALBUTEROL 2.5MG INH SOL UD 3ML (DUONEB) NEB PRN (13:50)
[2021-08-25 14:14] LABS: BASO # 0.1 10^3/uL (0.0-0.2); BASO % 0.7 % (0.0-1.0); EOS # 0.6 10^3/uL (0.0-0.5); EOS % 4.6 % (0.0-3.0); HEMATOCRIT 30.5 % (36.0-47.0); HEMOGLOBIN 9.5 g/dl (12.0-15.5); LYMPH # 0.8 10^3/uL (1.5-5.0); LYMPH % 6.6 % (24.0-44.0); MEAN CORPUSCULAR HEMOGLOBIN 34.2 pg (27.0-33.0); MEAN CORPUSCULAR HGB CONC 31.1 g/dl (32.0-36.5); MEAN CORPUSCULAR VOLUME 109.7 fl (80.0-96.0); MONO % 18.5 % (2.0-8.0); NEUTROPHILS # 8.2 10^3/uL (1.5-8.5); NEUTROPHILS % 67.7 % (36.0-66.0); PLATELET COUNT, AUTOMATED 200 10^3/uL (150-450); RED BLOOD COUNT 2.78 10^6/uL (4.00-5.40); WHITE BLOOD COUNT 12.1 10^3/uL (4.0-10.0)
--- OUTSIDE RECORDS SUMMARY | 2021-08-25 14:26 | CCD ---
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 Care Pond Worker Name Role Phone USMAN, F TADEO DO [...] Hunter MD Unavailable Unavailable Regine, H Gail SITE LEAD Unavailable Unavailable Regine, H Gail SITE LEAD Unavailable Unavailable Regine, H Gail SITE LEAD Unavailable Unavailable Regine, H Gail SITE LEAD Unavailable Unavailable Regine, H Gail SITE LEAD Unavailable Unavailable Regine, H Gail SITE LEAD Unavailable Unavailable Regine, H Gail SITE LEAD Unavailable Unavailable Regine, H Gail SITE LEAD Unavailable Unavailable Regine, H Gail SITE LEAD Unavailable Unavailable Regine, H Gail SITE LEAD Unavailable Unavailable Regine, H Gail SITE LEAD Unavailable Unavailable Regine, H Gail SITE LEAD Unavailable Unavailable Regine, H Gail SITE LEAD Unavailable Unavailable Regine, H Gail SITE LEAD Unavailable Unavailable Regine, H Gail SITE LEAD Unavailable Unavailable Regine, H Gail SITE LEAD Unavailable Unavailable Regine, H Gail SITE LEAD Unavailable Unavailable Regine, H Gail SITE LEAD Unavailable Unavailable Regine, H Gail SITE LEAD Unavailable Unavailable Regine, H Gail SITE LEAD Unavailable Unavailable Regine, H Gail SITE LEAD Unavailable Unavailable Regine, H Gail SITE LEAD Unavailable Unavailable Regine, H Gail SITE LEAD Unavailable Unavailable Regine, H Gail SITE LEAD Unavailable Unavailable Regine, H Gail SITE LEAD Unavailable Unavailable Regine, H Gail SITE LEAD Unavailable Unavailable Regine, H Gail SITE LEAD Unavailable Unavailable Regine, H Gail SITE LEAD Unavailable Unavailable Regine, H Gail SITE LEAD Unavailable Unavailable Regine, H Gail SITE LEAD Unavailable Unavailable Regine, H Gail SITE LEAD Unavailable Unavailable Regine, H Gail SITE LEAD Unavailable Unavailable Regine, H Gail SITE LEAD Unavailable Unavailable Regine, H Gail SITE LEAD Unavailable Unavailable Regine, H Gail SITE LEAD Unavailable Unavailable Regine, H Gail SITE LEAD Unavailable Unavailable Rgeine, H Gail SITE LEAD Unavailable Unavailable Regine, H Gail SITE LEAD Unavailable Unavailable Regine, H Gail SITE LEAD Unavailable Unavailable Regine, H Gail SITE LEAD Unavailable Unavailable Regine, H Gail SITE LEAD Unavailable Unavailable Regine, H Gail SITE LEAD Unavailable Unavailable Regine, H Gail SITE LEAD Unavailable Unavailable Regine, H Gail SITE LEAD Unavailable Unavailable Regine, H Gail SITE LEAD Unavailable Unavailable Regine, H Gail SITE LEAD Unavailable Unavailable Regine, H Gail SITE LEAD Unavailable Unavailable Regine, H Gail SITE LEAD Unavailable Unavailable Regine, H Gail SITE LEAD Unavailable Unavailable Regine, H Gail SITE LEAD Unavailable Unavailable Regine, H Gail SITE LEAD Unavailable Unavailable Regine, H Gail SITE LEAD Unavailable Unavailable Regine, H Gail SITE LEAD Unavailable Unavailable Regine, H Gail SITE LEAD Unavailable Unavailable Regine, H Gail SITE LEAD Unavailable Unavailable Regine, H Gail SITE LEAD Unavailable Unavailable Regine, H Gail SITE LEAD Unavailable Unavailable Regine, H Gail SITE LEAD Unavailable Unavailable Regine, H Gail SITE LEAD Unavailable Unavailable Rory Gomez MD Unavailable Unavailable [...] ARNOLD, P HARINDER MD Unavailable Unavailable MELANY, [id number] K. WAJEEHA DO Unavailable Unavail able MELANY, [id number] K. WAJEEHA DO Unavailable Unavail able MELANY, [id number] K. WAJEEHA DO Unavailable Unavail able MELANY, [id number] K. WAJEEHA DO Unavailable Unavail able MELANY, [id number] K. WAJEEHA DO Unavailable Unavail able Ruddy [...] Unavailable Unavailable SANDIRuddy FRYE MD Unavailable Unavailable Melbourne Falanga, A Evelyn FORM SETTER SUPERVISOR Unavailable Unavailable Greg Falanga, A Evelyn FORM SETTER SUPERVISOR Unavailable Unavailable Melbourne Falanga, A Evelyn FORM SETTER SUPERVISOR Unavailable Unavailable Melbourne Falanga, A Evelyn FORM SETTER SUPERVISOR Unavailable Unavailable Greg Falanga, A Evelyn FORM SETTER SUPERVISOR Unavailable Unavailable Melbourne Falanga, A Evelyn FORM SETTER SUPERVISOR Unavailable Unavailable Melbourne Falanga, A Evelyn FORM SETTER SUPERVISOR Unavailable Unavailable Greg Falanga, A Evelyn FORM SETTER SUPERVISOR Unavailable Unavailable Melbourne Falanga, A Evelyn FORM SETTER SUPERVISOR Unavailable Unavailable Melbourne Falanga, A Evelyn FORM SETTER SUPERVISOR Unavailable Unavailable Greg Falanga, A Evelyn FORM SETTER SUPERVISOR Unavailable Unavailable Greg Falanga, A Evelyn FORM SETTER SUPERVISOR Unavailable Unavailable Melbourne Falanga, A Evelyn FORM SETTER SUPERVISOR Unavailable Unavailable Greg Falanga, A Evelyn FORM SETTER SUPERVISOR Unavailable Unavailable Greg Falanga, A Evelyn FORM SETTER SUPERVISOR Unavailable Unavailable Greg Falanga, A Evelyn FORM SETTER SUPERVISOR Unavailable Unavailable Greg Falanga, A Evelyn FORM SETTER SUPERVISOR Unavailable Unavailable Melbourne Falanga, A Evelyn FORM SETTER SUPERVISOR Unavailable Unavailable Greg Falanga, A Evelyn FORM SETTER SUPERVISOR Unavailable Unavailable Melbourne Falanga, A Evelyn FORM SETTER SUPERVISOR Unavailable Unavailable Greg Falanga, A Evelyn FORM SETTER SUPERVISOR Unavailable Unavailable Melbourne Falanga, A Evelyn FORM SETTER SUPERVISOR Unavailable Unavailable Melbourne Falanga, A Evelyn FORM SETTER SUPERVISOR Unavailable Unavailable Melbourne Falanga, A Evelyn FORM SETTER SUPERVISOR Unavailable Unavailable Greg Falanga, A Evelyn FORM SETTER SUPERVISOR Unavailable Unavailable Greg Falanga, A Evelyn FORM SETTER SUPERVISOR Unavailable Unavailable Greg Falanga, A Evelyn FORM SETTER SUPERVISOR Unavailable Unavailable Melbourne Falanga, A Evelyn FORM SETTER SUPERVISOR Unavailable Unavailable Melbourne Falanga, A Evelyn FORM SETTER SUPERVISOR Unavailable Unavailable [facility] Unavailable Unavailable BEL CARLISLE MD Unavailable Unavailable [...] Unavailable KIM, MAQBOOL OSMEL MD Unavailable Unavailable IKM, MAQBOOL OSMEL MD Unavailable Unavailable KIM, MAQBOOL [...] Unavailable KIM, MAQBOOL OSMEL MD Unavailable Unavailable IKM, MAQBOOL OSMEL MD Unavailable Unavailable KIM, MAQBOOL [...] ROXIE MD Unavailable Unavailable Regine, H Gail SITE LEAD Unavailable Unavailable Regine, H Gail SITE LEAD Unavailable Unavailable Regine, H Gail SITE LEAD Unavailable Unavailable Regine, H Gail SITE LEAD Unavailable Unavailable Regine, H Gail SITE LEAD Unavailable Unavailable Regine, H Gail SITE LEAD Unavailable Unavailable Regine, H Gail SITE LEAD Unavailable Unavailable Regine, H Gail SITE LEAD Unavailable Unavailable Regine, H Gail SITE LEAD Unavailable Unavailable Regine, H Gail SITE LEAD Unavailable Unavailable Regine, H Gail SITE LEAD Unavailable Unavailable Regine, H Gail SITE LEAD Unavailable Unavailable Regine, H Gail SITE LEAD Unavailable Unavailable Regine, H Gail SITE LEAD Unavailable Unavailable Regine, H Gail SITE LEAD Unavailable Unavailable Regine, H Gail SITE LEAD Unavailable Unavailable Regine, H Gail SITE LEAD Unavailable Unavailable Regine, H Gail SITE LEAD Unavailable Unavailable Regine, H Gail SITE LEAD Unavailable Unavailable Regine, H Gail SITE LEAD Unavailable Unavailable Regine, H Gail SITE LEAD Unavailable Unavailable Regine, H Gail SITE LEAD Unavailable Unavailable Regine, H Gail SITE LEAD Unavailable Unavailable Regine, H Gail SITE LEAD Unavailable Unavailable Regine, H Gail SITE LEAD Unavailable Unavailable Regine, H Gail SITE LEAD Unavailable Unavailable Regine, H Gail SITE LEAD Unavailable Unavailable Regine, H Gail SITE LEAD Unavailable Unavailable Regine, H Gail SITE LEAD Unavailable Unavailable Regine, H Gail SITE LEAD Unavailable Unavailable Regine, H Gail SITE LEAD Unavailable Unavailable Regine, H Gail SITE LEAD Unavailable Unavailable Regine, H Gail SITE LEAD Unavailable Unavailable Regine, H Gail SITE LEAD Unavailable Unavailable Regine, H Gail SITE LEAD Unavailable Unavailable Regine, H Gali SITE LEAD Unavailable Unavailable Regine, H Gail SITE LEAD Unavailable Unavailable Regine, H Gail SITE LEAD Unavailable Unavailable Regnie, H Gail SITE LEAD Unavailable Unavailable Regine, H Gail SITE LEAD Unavailable Unavailable Regine, H Gail SITE LEAD Unavailable Unavailable Regine, H Gail SITE LEAD Unavailable Unavailable Regine, H Gail SITE LEAD Unavailable Unavailable Regine, H Gail SITE LEAD Unavailable Unavailable Regine, H Gail SITE LEAD Unavailable Unavailable Regine, H Gail SITE LEAD Unavailable Unavailable Regine, H Gail SITE LEAD Unavailable Unavailable Regine, H Gail SITE LEAD Unavailable Unavailable Regine, H Gail SITE LEAD Unavailable Unavailable Regine, H Gail SITE LEAD Unavailable Unavailable Regine, H Gail SITE LEAD Unavailable Unavailable Regine, H Gail SITE LEAD Unavailable Unavailable Regine, H Gail SITE LEAD Unavailable Unavailable Regine, H Gail SITE LEAD Unavailable Unavailable Regine, H Gail SITE LEAD Unavailable Unavailable Regine, H Gail SITE LEAD Unavailable Unavailable Regine, H Gail SITE LEAD Unavailable Unavailable Regine, H Gail SITE LEAD Unavailable Unavailable Regine, H Gail SITE LEAD Unavailable Unavailable Arlyn Francis PH.D., M.D. Unavailable [...] MAQBOOL OSMEL MD Unavailable Unavailable KIM, MAQBOOL OMSEL MD Unavailable Unavailable KIM, MAQBOOL OSMEL MD [...] Berny Jones MD Unavailable Unavaila ble Migeed, Benry Jones MD Unavailable Unavaila ble MigeedBerny MD [...] Abriss, Abiodun Hernandez MD Unavailable Unavailable Abriss, Abiodnu Hernandez MD Unavailable Unavailable Abriss, Abiodun Hernandez [...] is protected by Article 27-F of the [facility] Public Health law. If you continue you may have access to information: Regarding HIV / AIDS; Provided by facilities licensed or operated by the [facility] Office of Mental Health; or Provided by the [facility] Office for People With Developmental Disabilities. If such information is present, then the following [facility] mandated warning applies: This information has [...] law may result in a fine or mcfp sentence or both. A general authorization for the release of medical or other information is NOT sufficient authorization for further disc losure. Allergies and Adverse Reactions Type Description Substance Reaction Status Data Source(s ) Propensity to adverse reactions PENICILLINS Penicillins Rash Low Ac tive [facility] Low Propensity to adverse reactions OTHER Other Anaphylaxis Hig h Active [facility] High Propensity to adverse reactions IODINATED DIAGNOSTIC AGENTS Iodinated Diagnostic Agents Palpitations Low Active [facility] Low Food allergy SEAFOOD SEAFOOD ANAPHYLAXIS HIVES [facility] Propensity to adverse reactions PENICILLINS (CLASS) PENICILLINS (CLAS S) RASH [facility] Family History Family Member Name Family Member Gender Family Member Status Date o f Status Description Data Source(s) Unknown Male Problem [facility] ([facility]) () - age 49 Unknown Unknown Problem [facility] ([facility]) Unknown Unknown Problem [facility] ([facility], ) Unknown Unknown Problem [facility] ([facility]) Encounters Encounter Providers Location Date Indications Data Source(s ) H Attender: Karen Vu MDAdmitter: Karen larry MD [id number] 08/22/2021 06:43:00 AM EDT - 08/22/2021 04:06:00 PM EDT [facility] Patient discharged. Outpatient Attender: Karen Vu MDReferrer: Karen [facility] 08/17/2021 09:23:07 AM EDT - 08/17/2021 10:57:[address] [facility] Outpatient Referrer: Karen ROBERTO.PAT 09:06:03 AM EDT - 08/17/2021 09:06:[address] [facility] Outpatient Attender: Cesar Francis PH.D., M.D. Alysia/Lucio/Nasima lima/Rhys 08/16/2021 09:45:00 AM EDT [facility] ([facility] Outpatient Attender: OSMEL ALVAREZ MD [facility] 08/13 02:00:00 PM EDT [facility] ([facility]) Inpatient Attender: OSMEL ALVAREZ MDAtt jose alfredo: MARIA T GALLOWAYConsultant: Gail Reyes SITE LEAD 08/01/2021 06:43:00 AM EDT - 08/05/2021 03:40:00 PM EDT [facility] Patient discharged. Emergency Attender: Rory Gomez MDConsultant: Gail Reyes SITE LEAD 07/31/2021 09:35:00 AM EDT - 07/31/2021 11:50:00 AM EDT [facility] Patient discharged. Outpatient Attender: Ashley Hatfield/Lucio/Sai/Kip geller 07/20/2021 02:00:00 PM EDT [facility] ([facility], ) Outpatient Attender: OSMEL ALVAREZ MD [facility] 07/05 02:45:00 PM EDT [facility] ([facility]) Emergency Attender: Rory Gomez MDConsultant: Gail Reyes NP 06/29/2021 10:49:00 AM EDT - 06/29/2021 02:40:00 PM EDT [facility] Patient discharged. Outpatient Attender: Cesar Francis PH.D., M.D. Alysia/Lucio/Nasima lima/Rhys 06/27/2021 09:15:00 AM EDT MED[facility] ([facility]) Outpatient Attender: HUGH Eduardo/Lucio/Sai/Rhys 06/26/2021 11:00:00 AM EDT [facility] ([facility]) <td ID="encounterTypeDescriptionID0">8 M onth Follow-Up</td><td>Coby Larry DO</td><td>Cesar Hadley MD [facility]</td><td>06/15/2021</td><td>1:56PM</td><td>10/05/2020 11:59PM</td><td> <content ID="encounterDiagnosisID0-0">Cataract Senile Nuclear</content>, <content ID="encounterDiagnosisID0-1">Dry Eye Syndrome</content>, <content ID="encounterDiagnosisID0-2">Borderline Glaucoma Open Angle with Borderline Findings Both Eyes</content>, <content ID="encounterDiagnosisID0-3">Vitreous Disorders Degeneration</content></td>Outpatient Attender: COBY Lawler MD [facility] 06/15/2021 01:56:00 PM EDT - 10/05/2020 11:59:00 PM EST Cataract Senile NuclearDry Eye SyndromeV itreous Disorders DegenerationBorderline Glaucoma Open Angle with Borderline Findings Both Eyes CJ (Cesar Barrow MD [facility]) Cataract Senile Nuclear Dry Eye Syndrome Vitreous Disorders Degeneration 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 Findings Both Eyes Outpatient Attender: HUGH Eduardo/Lucio/Sai/Reindl 06/12/2021 11:30:00 AM EDT [facility] ([facility]) Outpatient Attender: BERNY VUConsultant: Gail Reyes NP 06/11/2021 08:58:00 AM EDT - 06/11/2021 09:58:00 AM EDT [facility] Outpatient Attender: OSMEL ALVAREZ MDConsultant: Gail Vicente 06/04/2021 02:51:00 PM EDT - 06/04/2021 03:51:00 PM EDT [facility] Outpatient Attender: OSMEL ALVAREZ MD [facility] 05/31 02:15:00 PM EDT [facility] ([facility]) Outpatient Referrer: Karen Vu MD 05/29/2021 02:52:2 6 PM EDT [facility] Outpatient Attender: Karen Vu MD [facility] 05/24/2021 02:45:00 PM EDT MED[facility] ([facility]) Outpatient Attender: HARINDER STEEL MDConsultant: Gail Garces NP 05/10/2021 08:52:00 AM EDT - 05/10/2021 09:52:00 AM EDT [facility] Emergency Attender: GLORIA SCHNEIDER MDConsultant: Nicole Reyes SITE LEAD 05/01/2021 08:44:00 PM EDT - 05/02/2021 01:45:00 AM EDT [facility] Patient discharged. Outpatient Attender: OSMEL ALVAREZ MD [facility] 04/30 02:45:00 PM EDT [facility] ([facility]) Outpatient Attender: OSMEL ALVAREZ MDConsultant: Gail Daniels P 04/25/2021 12:40:06 PM EDT [facility] Emergency Attender: TADEO RITCHIE DOConsultant: Gail Daniels P 04/21/2021 11:41:00 AM EDT - 04/21/2021 03:07:00 PM EDT [facility] Patient discharged. Outpatient Attender: OSMEL ALVAREZ MDAtt jose alfredo: GLORIA SCHNEIDER MDConsultant: Gail Reyes SITE LEAD 04/17/2021 09:27:00 PM EDT - 04/20/2021 01:00:00 PM EDT [facility] Patient discharged. Emergency Attender: GLORIA SCHNEIDER MDConsultant: Nicole Reyes SITE LEAD 04/17/2021 06:22:00 PM EDT - 04/17/2021 09:02:00 PM EDT [facility] Patient discharged. Outpatient Attender: HUGH Eduardo/Lucio/Sai/Rhys 04/17/2021 01:30:00 PM EDT MED[facility] ([facility], ) Outpatient Attender: OSMEL ALVAREZ MDConsultant: Gail Daniels P 04/11/2021 09:33:00 AM EDT - 04/11/2021 10:33:00 AM EDT [facility] Emergency Attender: GLORIA SCHNEIDER MDConsultant: Nicole Reyes SITE LEAD 04/01/2021 02:22:00 PM EDT - 04/01/2021 04:50:00 PM EDT [facility] Patient discharged. Outpatient Attender: OSMEL ALVAREZ MD [facility] 03/21 11:15:00 AM EDT [facility] ([facility]) Outpatient Attender: OSMEL ALVAREZ MDConsultant: Gail Reyes N P 03/21/2021 08:15:00 AM EDT - 03/21/2021 09:15:00 AM EDT [facility] Outpatient Attender: OSMEL ALVAREZ MD [facility] 03/16 09:45:00 AM EDT [facility] ([facility]) Outpatient Attender: OSMEL ALVAREZ MDConsultant: Gail Daniels P 03/16/2021 07:51:00 AM EDT - 03/16/2021 08:51:00 AM EDT [facility] Outpatient Attender: OSMEL ALVAREZ MD [facility] 03/15 03:00:00 PM EDT [facility] ([facility]) Outpatient Attender: OSMEL ALVAREZ MD [facility] 03/13 10:00:00 AM EDT [facility] ([facility]) Outpatient Attender: OSMEL ALVAREZ MDConsultant: Gail Reyes N P 03/13/2021 08:33:00 AM EDT - 03/13/2021 09:33:00 AM EDT [facility] Outpatient Attender: OSMEL ALVAREZ MDConsultant: Gail Reyes N P 03/08/2021 11:23:00 AM EDT - 03/08/2021 12:23:00 PM T [facility] Outpatient Attender: OSMEL ALVAREZ MD [facility] 03/08 10:15:00 AM EDT [facility] ([facility]) Outpatient Attender: HUGH Eduardo/Spencer/Sai/Reindl 03/01/2021 01:30:00 PM EDT [facility] ([facility] Outpatient Attender: Ashley Hatfield/Spencer/Sai/Kip ndl 02/17/2021 01:23:00 AM EDT [facility] Outpatient Attender: Ashley Hatfield/Lucio/Sai/Kip ndl 02/16/2021 01:23:00 AM EDT [facility] Outpatient Attender: HUGH PARNELL Alysia/Spencer/Sai/Reindl 02/14/2021 01:23:00 AM EDT [facility] ([facility] Outpatient Attender: HUGH PARNELL Alysia/Spencer/Sai/Reindl 02/13/2021 01:23:00 AM EDT [facility] Outpatient Attender: HUGH PARNELL Alysia/Spencer/Sai/Reindl 02/11/2021 01:23:00 AM EDT [facility] Outpatient Attender: HUGH PARNELL Alysia/Spencer/Sai/Reindl 02/10/2021 01:23:00 AM EDT [facility] Outpatient Attender: HUGH WHITEHEADMANAV SCHMITZ Alysia/Spencer/Sai/Reindl 02/09/2021 01:23:00 AM EDT [facility] Outpatient Attender: Victoriano Hatfield/Spencer/Sai/R eindl 02/08/2021 01:23:00 AM EDT [facility] Outpatient Attender: Victoriano Hatfield/Spencer/Sai/R eindl 02/06/2021 01:23:00 AM EDT [facility] Outpatient Attender: [facility] 01/31/2021 05:5 0:00 PM EDT [facility] Emergency Attender: MARIA T Tabaresant: Gail Vicente 01/31/2021 05:29:00 PM EDT - 01/31/2021 06:30:00 PM EDT [facility] Patient discharged. Outpatient Attender: HUGH PARNELL DO Alysia/Spencer/Sai/Reindl 01/30/2021 01:00:00 PM EDT [facility] Outpatient Attender: OSMEL ALVAREZ MD [facility] 01/29 02:45:00 PM EDT [facility] ([facility]) Outpatient Attender: David Maldonado MD Alysia/Spencer/Sai/Re indl 01/18/2021 11:15:00 AM EDT [facility] Outpatient Attender: HUGH PARNELL DO Alysia/Spencer/Sai/Reindl 01/17/2021 01:00:00 PM EDT [facility] Outpatient Attender: Ashley Riveraang/Spencer/Sai/Kip ndl 12/26/2020 12:23:00 AM EST [facility] Outpatient Attender: Ashley Hatfield/Spencer/Sai/Kip ndl 12/25/2020 12:23:00 AM EST [facility] Outpatient Attender: Ashley Hatfield/Spencer/Sai/Kip ndl 12/24/2020 12:23:00 AM EST [facility] Outpatient Attender: [facility] 12/20/2020 01:3 9:00 PM [facility] Inpatient Attender: OSMEL ALVAREZ MDAtt jose alfredo: MARIA T GALLOWAYConsultant: Gail Reyes NP 12/20/2020 01:00:00 PM EST - 12/23/2020 12:15:00 PM [facility] Patient discharged. Outpatient Attender: [id number] DAYSI MOSLEY DOConsultant : Gail Reyes NP 12/08/2020 12:28:00 PM EST - 12/08/2020 01:28:00 PM [facility] Outpatient Attender: Gail Jeffrieseferrer: Gail Reyes NP 12/04/2020 10:49:00 AM EST - 12/04/2020 01:30:00 PM [facility] Inpatient Attender: Evelyn rodriguez FNPAttender: Darwin REA CConsultant: Gail Reyes NP 11/24/2020 02:59:00 PM EST - 11/28/2020 02:30:00 PM [facility] Patient discharged. Outpatient Attender: [facility] 11/24/2020 11:1 5:00 AM EST [facility] Outpatient Attender: Cristin barry 11/10/2020 03:00:00 PM EST [facility] ([facility]) Outpatient Attender: OSMEL ALVAREZ MD [facility] 11/07 09:45:00 AM EST [facility] ([facility]) Outpatient Attender: [id number] SLIMEPRECIOUS CORDOVADHU DOConsultant : Gail Reyes NP 10/12/2020 08:53:00 AM EST - 10/12/2020 09:53:00 AM EST [facility] Patient discharged. Outpatient<td ID="encounterTypeDescripti onID1">TRIAGE NON URGENT</td><td>Coby Larry DO</td><td>Cesar Hadley MD [facility]</td><td>10/05/2020</td><td>9:19AM</td><td>10:07AM</td><td><content ID="encounterDiagnosisID1-0">Transient Ischemic Attack (Tia)</content></td> Attender: COBY Lawler MD [facility] 10/05/2020 09:19:00 AM EST - 10/05/2020 10:07:00 AM EST Transient Ischemic Attack (Tia)Transient Ischemic Attack (Tia)Transient Ischemic Attack (Tia) CJ (Cesar Barrow MD [facility]) Transient Ischemic Attack (Tia) Transient Ischemic Attack (Tia) Transient Ischemic Attack (Tia) Outpatient Attender: OSMEL ALVAREZ MD [facility] 10/03 08:15:00 AM EST [facility] ([facility]) Outpatient Attender: OSMEL Jacobs jose alfredo: BEL CARLISLE MDConsultant: Gail Reyes NP 09/27/2020 05:50:00 PM EST - 09/28/2020 02:54:00 PM EST [facility] Patient discharged. Outpatient Attender: HARINDER STEEL MDConsultant: Gail Garces NP 09/05/2020 12:32:00 PM EST - 09/05/2020 01:32:00 PM EST [facility] Outpatient Attender: OSMEL ALVAREZ MD [facility] 08/29 11:30:00 AM EDT [facility] ([facility]) Outpatient Attender: HARINDER STEEL MDConsultant: Gail Garces NP 08/29/2020 09:44:00 AM EDT - 08/29/2020 10:44:00 AM EDT [facility] Outpatient Attender: OSMEL ALVAREZ MD [facility] 08/22 11:15:00 AM EDT [facility] ([facility]) Outpatient Attender: David Hatfield/Lucio/Sai/Re indl 08/17/2020 01:00:00 PM EDT [facility] ([facility] Outpatient Attender: OSMEL ALVAREZ MDAtt jose alfredo: ROXIE FLORES MDConsultant: Gail Reyes NP 08/15/2020 10:38:00 AM EDT - 08/15/2020 11:38:00 AM EDT [facility] Outpatient Attender: OSMEL ALVAREZ MD [facility] 08/15 09:15:00 AM EDT [facility] ([facility]) Inpatient Attender: OSMEL Jacobs jose alfredo: SHAUNA JUNIOR MDConsultant: Gail Reyes NP 08/05/2020 08:23:00 PM EDT - 08/07/2020 11:37:00 AM EDT [facility] Patient discharged. Outpatient Attender: HARINDER STEEL MDConsultant: Gail Garces NP 08/01/2020 11:12:00 AM EDT - 08/01/2020 12:12:00 PM EDT [facility] Immunizations Vaccine Date Status Description Data Source(s) COVID-19 VACCINE Moderna 12/04/2020 12:00:00 AM EST completed [facility] Vaccine Series Complete: YESThis Data wa s Submitted to [facility] Via [employer]. COVID-19 VACCINE Moderna 10/30/2020 12:00:00 AM EST completed [facility] Vaccine Series Complete: NOThis Data was Submitted to [facility] Via [employer]. IIV3. This is one of two codes replacing CVX 15, which is being retired. 08/25/2020 12:00:00 AM EDT completed influenza vaccine, inactivated [facility] INFLUENZA VIRUS VACCINE QUADRIVAL (6 MOS AND UP)/PF 08/25/2020 12:00:00 AM EDT completed [facility] Medications Medication Brand Name Start Date Product Form Dose Route Admi nistrative Instructions Pharmacy Instructions Status Indications Reaction Description Data Source(s) normal saline flush 0.9 % injection 3 mL [id number] 08/22/2021 02:00:00 PM EDT 3 mL Intravenous active 3 mL , Intravenous, Every 8 hours (scheduled), First dose on Fri08/22/21 at 1400, PACU (only)
flush per protocol, D/C Main IV fluid if appropriate
[facility] Medication administered onsite ondansetron (ZOFRAN) injection 4 mg [id number] 08/22/2021 11:05:5 7 AM EDT 4 mg Intravenous completed 4 mg, In travenous, Once as needed, nausea, vomiting, Starting on Fri08/22/21 at 1105, For 1 dose, PACU (only)
If not given in last [address]
[facility] Medication administered onsite fentaNYL Citrate (PF) (SUBLIMAZE) injection 25 mcg [id number] 08/22/2021 11:05:57 AM EDT 25 ug Intravenous active 25 mcg, Intravenous, Every 5 min PRN, moderate pain (4 to 6), Starting on Fri08/22/21 at 1105, For 5 doses, PACU (only) [facility] Medication administered onsite Albuterol 0.833 MG/ML / Ipratropium Brom erin 0.167 MG/ML Inhalant Solution ipratropium-albuterol (DUO-NEB) 0.5-2.5 mg/mL nebulizer solution 3 mL ipratropium-albuterol (DUO-NEB) 0.5-2.5 mg/mL nebulizer solution 3 mL 08/22/2021 11:05:57 AM EDT 3 mL Inhalation active 3 mL, Inhalation, Once as needed, shortness of breath, Starting on Fri08/22/21 at 1105, For 1 dose, PACU (only) [facility] Medication administered onsite 10 ML Atropine Sulfate [...] or 0.04 mg/kg. Max of [address]
[facility] Medication administered onsite protamine injection [id number] 08/22/2021 10:54:14 AM EDT active As needed, Starting on Fri08/22/21 at 1054, Intra-Pro cedure [facility] Medication administered onsite 1 ML heparin sodium, porcine 1000 UNT/ML Injection hep richar (porcine) injection heparin (porcine) injection 08/22/2021 09:44:38 AM EDT active As needed, Starting on Fri08/22/21 at 0944, Intra-Procedure [facility] Medication administered onsite normal saline flush 0.9 % injection 3 mL [id number] 08/22/2021 08:00:00 AM EDT 3 mL Intravenous active 3 mL , Intravenous, Every 8 hours (scheduled), First dose on Fri08/22/21 at 0800, Pre-op
Rapid push positive pressure flushing shall be performed with a 10 cc normal saline syringe to check the PATENCY of a PIV site prior to any infusion therapy initiation unless resistance is met.
[facility] Medication administered onsite normal saline flush 0.9 % injection 3 mL [id number] 08/22/2021 08:00:00 AM EDT 3 mL Intravenous active 3 mL , Intravenous, Every 8 hours (scheduled), First dose on Fri08/22/21 at 0800, Pre-op
Rapid push positive pressure flushing shall be performed with a 10 cc normal saline syringe to check the PATENCY of a PIV site prior to any infusion therapy initiation unless resistance is met.
[facility] Medication administered onsite apixaban 5 MG Oral Tablet [Eliquis] Eliquis 08/13/2021 12:00:00 AM E DT ORAL active [facility] (Osmel Alvarez MD) Albuterol 0.83 MG/ML Inhalant Solution Albuterol Sulfate 0 06/26/2021 12:00:00 AM EDT active [facility] ([facility], ) 24 HR Diltiazem Hydrochloride 180 [...] 12:00: 00 AM EDT ORAL completed [facility] ([facility], ) Tobramycin 40 MG/ML Injectable Solution Tobramycin Sulfate 05/04/2021 12:00:00 AM EDT completed [facility] ([facility], ) Tobramycin 75 MG/ML Inhalant Solution Tobramycin 05/03/2021 12:00:00 AM EDT completed [facility] ([facility], ) Levofloxacin 500 MG Oral Tablet Levofloxacin 04/30/2021 12:00:00 AM E DT ORAL completed [facility] ([facility], ) dronedarone 400 MG Oral Tablet [Multaq] Multaq 04/11/2021 12:00:0 0 AM EDT ORAL active [facility] (Chantel Alvarez MD) Levofloxacin 500 MG Oral Tablet Levofloxacin 03/26/2021 12:00:00 AM E DT ORAL completed [facility] ([facility], ) ivabradine 5 MG Oral Tablet [...] Fluconazole 01/30/2021 12:00:00 AM EDT completed [facility] ([facility]) Levofloxacin 500 MG Oral Tablet Levofloxacin 01/30/2021 12:00:00 AM E DT ORAL completed [facility] ([facility]) Itraconazole 100 MG Oral Capsule Itraconazole 01/30/2021 12:00:00 AM EDT ORAL completed [facility] ([facility]) Prednisone 20 MG Oral Tablet Prednisone 01/29/2021 12:00:00 AM EDT completed [facility] (Osmel Alvarez MD) Furosemide 40 MG Oral Tablet Furosemide 01/29/2021 12:00:00 AM EDT ORAL completed [facility] (Osmel Alvarez MD) Prednisone 10 MG Oral Tablet Prednisone 01/22/2021 12:00:00 AM EDT ORAL completed [facility] ([facility]) Aspirin 81 MG Delayed Release Oral Tablet Aspirin 81 2020 12:00:00 AM EST ORAL completed [facility] (Osmel Alvarez MD) Magnesium Oxide 200 MG Oral Tablet Mag-200 12/12/2020 12:00:00 AM EST completed [facility] (Osmel Alvarez MD) doxycycline hyclate 100 MG Oral Capsule Doxycycline Hyclate 11/10/2020 12:00:00 AM EST active [facility] ([facility]) 30 ACTUAT fluticasone furoate 0.2 MG/ACT [...] Release Oral Tablet CJ (Cesar Barrow MD [facility]) 30 ACTUAT fluticasone furoate 0.1 MG/ACT UAT / vilanterol 0.025 MG/ACTUAT Dry Powder Inhaler [Breo] Breo Ellipta 100-25 MCG/INH Inhalation Aerosol Powder Breath Activated Breo Ellipta 100-25 MCG/INH Inhalation A erosol Powder Breath Activated 10/05/2020 12:00:00 AM EST active 30 ACTUAT fluticasone furoate 0.1 MG/ACTUAT / vilanterol 0.025 MG/ACTUAT Dry Powder Inhaler [Breo] CJ (Cesar Barrow MD [facility]) Potassium 10 mg Oral Tablet Potassium 10 mg Oral Tablet 01/2020 12:00:00 AM EST 1 active Potassium [place] (Cesar Barrow MD [facility]) Diltiazem 180 mg Oral Tablet Diltiazem 180 mg Oral Tablet 12:00:00 AM EST 1 active Diltiazem NOEMÍ Y (Cesar Barrow MD [facility]) Magnesium 1000 MG CAP Oral Capsule Magnesium 1000 MG CAP Ora l Capsule 10/05/2020 12:00:00 AM EST 1 active Magnesi um 1000 MG CAP CJ (Cesar Barrow MD [facility]) rivaroxaban 10 MG Oral Tablet [Xarelto] Xarelto 10 MG Oral Tablet Xarelto 10 MG Oral Tablet 10/05/2020 12:00:00 AM EST 1 active rivaroxaban 10 MG Oral Tablet [Xarelto] CJ (Cesar Barrow MD [facility]) Pantoprazole 40 MG Oral Tablet Pantoprazole 40 MG Oral Table t 10/05/2020 12:00:00 AM EST 1 active Pantopra zole CJ (Cesar Barrow MD [facility]) Folic Acid 0.8 MG Oral Tablet Folic Acid 800 MCG Oral Tablet Folic Acid 800 MCG Oral Tablet 10/05/2020 12:00:00 AM EST 1 active folic acid 0.8 MG Oral Tablet CJ (Cesar Barrow MD [facility]) 30 ACTUAT fluticasone furoate 0.2 MG/ACT UAT / vilanterol 0.025 MG/ACTUAT Dry Powder Inhaler [Breo] Breo Ellipta 09/13/2020 12:00:00 AM EST OR AL active [facility] ([facility], ) Potassium Chloride 10 MEQ Extended Release Oral Tablet Potassium Chloride Jennifer ER 08/15/2020 12:00:00 AM EDT ORAL completed [facility] (Osmel Alvarez MD) Furosemide 20 MG Oral Tablet Furosemide 08/15/2020 12:00:00 AM EDT active [facility] (Osmel Alvarez MD) Magnesium 500 MG Oral Capsule Magnesium 500 MG Oral Capsule 06/15/2020 12:00:00 AM EDT 1 aborted Magnesium [place] A[place] (Cesar Barrow MD [facility]) 60 ACTUAT Budesonide 0.16 MG/ACTUAT / fo rmoterol fumarate 0.0045 MG/ACTUAT Metered Dose Inhaler [Symbicort] Symbicort 160-4.5 MCG/ACT Inhalation Aerosol Symbicort 160-4.5 MCG/ACT Inhalation Aerosol 06/15/2020 12:00:00 AM EDT 1 aborted 60 ACTUAT budeso nide 0.16 MG/ACTUAT / formoterol fumarate 0.0045 MG/ACTUAT Metered Dose Inhaler [Symbicort] CJ (Cesar Barrow MD [facility]) rivaroxaban 20 MG Oral Tablet [Xarelto] Xarelto 20MG O ral Tablet Xarelto 20MG Oral Tablet 06/12/2018 12:00:00 AM EDT aborte d rivaroxaban 20 MG Oral Tablet [Xarelto] JC (Cesar Barrow MD [facility]) cetirizine hydrochloride 10 MG Oral Tabl et [Zyrtec] ZyrTEC Allergy 10MG Oral Tablet ZyrTEC Allergy 10MG Oral Tablet 02/03/2017 12:00:00 AM EDT 1 aborted cetirizine hydrochloride 10 MG O ral Tablet [Zyrtec] CJ (Cesar Barrow MD [facility]) pantoprazole 20 MG Delayed Release Oral Tablet Pantoprazole Sodium 20MG Oral Tablet, enteric coated Pantoprazole Sodium 20MG Oral Tablet, enteric coated 02/03/2017 12:00:00 AM EDT 1 aborted pantoprazole 20 MG Delayed Release Oral Tablet [place] (Cesar Barrow MD [facility]) Insurance Providers Payer name Policy type / Coverage type Policy ID Covered constitution party ID Covered constitution party's relationship to panchal Policy Panchal Plan Information [employer] [place] 306/806 [id number] SP [id number] [employer] [place] 306/806 [id number] SP [id number] EXCELLUS C [id number] Self [id number] [employer] [place] Individual Policy 0 [id number] Self 0 [employer] [place] Individual Policy 0 [id number] Self 0 [employer] [place] Individual Policy 0 [id number] Self 0 [employer] [place] Individual Policy 0 [id number] Self 0 [employer] [place] Individual Policy 0 [id number] Self 0 [employer] [place] [employer] Individual Policy 0 [id number] Self 0 [employer] [place] [employer] Individual Policy 0 [id number] Self 0 [employer] [place] Individual Policy 0 [id number] Self 0 [employer] [place] Individual Policy 0 [id number] Self 0 [place] P[place] 302/307 [id number] SP [id number] EXCELLUS C [id number] Self [id number] [employer] [place] PPO 302/307 [id number] SP [id number] [employer] [place] [employer] Individual Policy 0 [id number] Self 0 [employer] [place] PPO 302/307 [id number] SP [id number] [employer] [place] Individual Policy 0 [id number] Self 0 [employer] [place] [employer] Individual Policy 0 [id number] Self 0 [employer] [place] Individual Policy 0 [id number] Self 0 [employer] [place] [employer] Individual Policy 0 [id number] Self 0 [employer] [place] Individual Policy 0 [id number] Self 0 [employer] [place] Individual Policy 0 [id number] Self 0 [employer] [place] [employer] Individual Policy 0 [id number] Self 0 [employer] [place] [employer] Individual Policy 0 [id number] Self 0 [employer] [place] Individual Policy 0 [id number] Self 0 [employer] [place] [employer] Individual Policy 0 [id number] Self 0 [employer] [place] Individual Policy 0 [id number] Self 0 [employer] [place] Individual Policy 0 [id number] Self 0 [employer] [place] Individual Policy 0 [id number] Self 0 [employer] [place] Individual Policy 0 [id number] Self 0 [employer] [place] Individual Policy 0 [id number] Self 0 [employer] [place] Individual Policy 0 [id number] Self 0 [employer] [place] Individual Policy 0 [id number] Self 0 [employer] [place] Individual Policy 0 [id number] Self 0 [employer] [place] Individual Policy 0 [id number] Self 0 [employer] [place] Individual Policy 0 [id number] Self 0 [employer] [place] Individual Policy 0 [id number] Self 0 [employer] [place] Individual Policy 0 [id number] Self 0 [employer] [place] Individual Policy 0 [id number] Self 0 [employer] [place] Individual Policy 0 [id number] Self 0 [employer] [place] Individual Policy 0 [id number] Self 0 BCBS of [facility] Individual Policy 0 [id number] Self 0 BCBS of [facility] [place] Individual Policy 0 [id number] Self 0 BCBS of [facility] [place] Individual Policy 0 [id number] Self 0 BCBS of [facility] [place] Individual Policy 0 [id number] Self 0 BCBS of [facility] [place] Individual Policy 0 [id number] Self 0 BCBS of [facility] [place] Individual Policy 0 [id number] Self 0 BCBS of [facility] [place] Individual Policy 0 [id number] Self 0 EXCELLUS BCBS [id number] [id number] BCBS [employer]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 [id number] [id number] BCBS of [facility] Other 0 [id number] F amily Dependent Jose Solomon 0 EXCELLUS BCBS [id number] BCBS of [facility] Other 0 [id number] F amily Dependent Jose Solomon 0 BCBS of [facility] Other 0 [id number] F amily Dependent Jose Solomon 0 BCBS of [facility] Other 0 [id number] F amily Dependent Jose Solomon 0 MEDICARE [id number] Victorina [id number] MEDICARE [id number] INSURANCE COVID-19 COVID Victorina C OVID INSURANCE COVID-19 [id number] BCBS FEDERAL EM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 [id number] MEDICARE PART A -I/P [id number] 18 [id number] BLUE CROSS BLUE SHIELD -I/P [id number] 01 [id number] MEDICARE -RECURRING [id number] 18 [id number] BLUE [employer]OSS [employer]UE [employer]IELD FEDERAL-RECURRING [id number] 01 [id number] MEDICARE PART A -O/P [id number] 18 [id number] BLUE CROSS BLUE SHIELD FEDERAL -O/P [id number] 01 [id number] BCBS FEDERAL EM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 [id number] Medicare Part B of [facility] Other 0 [id number] Self 0 Medicare Part B of [facility] Other 0 [id number] Self 0 BLUE CROSS BLUE SHIELD -PHYSICIAN [id number] BLUE CROSS BLUE SHIELD FEDERAL -PHYS [id number] MEDICARE C [id number] S [id number] BS [place] FEDERAL B [id number] P [id number] Medicare Part B of [facility] Other 0 [id number] Self 0 BLUE CROSS BLUE SHIELD-O/P [id number] BLUE CROSS BLUE SHIELD -O/P [id number] 01 [id number] BLUE CROSS BLUE SHIELD -O/P [id number] [facility] B [id number] S [id number] [facility] FEDERAL EM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 [id number] [facility] Other 0 [id number] Self 0 BS [employer] [id number] Self [id number] BS [employer] [id number] Self [id number] BS [employer] [id number] Self [id number] BS [employer] [id number] Self [id number] BS [employer] [id number] Self [id number] [facility] (O) [id number] Self [id number] [facility] (O) [id number] Self [id number] [facility] [id number] Self [id number] [facility] [id number] [facility] Maintenance Organization ([facility] [id number] Self [id number] [facility] Maintenance [facility] ([facility]) [id number] Self [id number] [facility] B [id number] S V [id number] BC/BS Of [facility] [id number] Self [facility] BLUE SHIELD-O/P [id number] MEDICARE [id number] SP [id number] Problems, Conditions, and Diagnoses Code Display Name Description Problem Type Effective Dates Data Source(s) I48.0 Paroxysmal atrial fibrillation Paroxysmal atrial fibri llation Diagnosis 08/22/2021 06:43:[address] [facility] U07.1 COVID-19 COVID-19 Diagnosis 08/17/2021 09:06:[address] [facility] Z8673 Personal history of transien t ischemic attack (TIA), and cerebral infarction without residual deficits Personal history of transient ischemic attack (TIA), and cerebral infarction without residual deficits Diagnosis 08/01/2021 06:43:00 AM EDT [facility] I110 Hypertensive heart disease with heart fa ilure Hypertensive heart disease with heart failure Diagnosis 08/01/2021 06:43:[address] [facility] S17811 Personal history of other venous thrombo sis and embolism Personal history of other venous thrombosis and embolism Diagnosis 08/01/2021 06:43:[address] [facility] I509 Heart failure, unspecified Heart failure, unspecified Diagnosis 08/01/2021 06:43:[address] [facility] [id number] Personal history of nicotine dependence Personal history of nicotine dependence Diagnosis 08/01/2021 06:43:[address] [facility] [id number] Personal history of other malignant neop lasm of bronchus and lung Personal history of other malignant neoplasm of bronchus and lung Diagnosis 08/01/2021 06:43:[address] [facility] D649 Anemia, unspecified Anemia, unspecified Diagnosis 0 08/01/2021 06:43:[address] [facility] S30978 Personal history of pulmonary embolism P ersonal history of pulmonary embolism Diagnosis 08/01/2021 06:43:[address] 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 I480 Paroxysmal atrial fibrillation Paroxysmal atrial fibri llation Diagnosis 08/01/2021 06:43:[address] [facility] Z7901 mandrel maker (current) use of anticoagulant s mandrel maker (current) use of anticoagulants Diagnosis 07/31/2021 09:35:[address] [facility] C801 Malignant (primary) neoplasm, unspecifie d Malignant (primary) neoplasm, unspecified Diagnosis 07/31/2021 09:35:[address] [facility] R0789 Other chest pain Other chest pain Diagnosis 07/31/2021 09 :35:[address] 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 C3490 Malignant neoplasm of unspecified part o f unspecified bronchus or lung Malignant neoplasm of unspecified part of unspecified bronchus or lung Diagnosis 06/29/2021 10:49:00 AM EDT [facility] R002 Palpitations Palpitations Diagnosis 06/29/2021 10:49:00 A M EDT [facility] [id number] Encounter for preprocedural cardiovascul ar examination Encounter for preprocedural cardiovascular examination Diagnosis 06/11/2021 08:58:00 AM EDT [facility] R2242 Localized swelling, mass and lump, left lower limb Localized swelling, mass and lump, left lower limb Diagnosis 06/04/2021 02:51:00 PM EDT [facility] A54487 Pain in left hip Pain in left hip Diagnosis 05/10/2021 08 :52:00 AM EDT [facility] A15914 Pain in right hip Pain in right hip Diagnosis 05/10/2021 08:52:00 AM EDT [facility] R102 Pelvic and perineal pain Pelvic and perineal pain Diag nosis 05/10/2021 08:52:00 AM EDT [facility] Z8701 Personal history of pneumonia (recurrent ) Personal history of pneumonia (recurrent) Diagnosis 05/01/2021 08:44:00 PM EDT [facility] H52133 Personal history of malignant neoplasm o f bone Personal history of malignant neoplasm of bone Diagnosis 05/01/2021 08:44:00 PM EDT [facility] R110 Nausea Nausea Diagnosis 05/01/2021 08:44:00 PM ED T [facility] I10 Essential (primary) hypertension Essential (primary) h ypertension Diagnosis 05/01/2021 08:44:00 PM EDT [facility] E8342 Hypomagnesemia Hypomagnesemia Diagnosis 05/01/2021 08:44: 00 PM EDT [facility] J159 Unspecified bacterial pneumonia Unspecified bacterial pneumonia Diagnosis 05/01/2021 08:44:00 PM EDT [facility] R531 Weakness Weakness Diagnosis 04/26/2021 12:52:00 PM ED T [facility] C3432 Malignant neoplasm of lower lobe, left b ronchus or lung Malignant neoplasm of lower lobe, left bronchus or lung Diagnosis 04/21/2021 11:41:00 AM EDT [facility] R000 Tachycardia, unspecified Tachycardia, unspecified Diag nosis 04/21/2021 11:41:00 AM EDT [facility] Z1152 ENCOUNTER FOR SCREENING FOR COVID-19 ENCOUNTER F OR SCREENING FOR COVID-19 Diagnosis 04/17/2021 09:27:00 PM EDT [facility] K219 Gastro-esophageal reflux disease without esophagitis Gastro-esophageal reflux disease without esophagitis Diagnosis 04/17/2021 09:27:00 PM ED T [facility] 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 Diagnosis 04/17/2021 09:27:00 PM EDT [facility] I4891 Unspecified atrial fibrillation Unspecified atrial fib rillation Diagnosis 04/17/2021 09:27:00 PM EDT [facility] Z6834 Body mass index [BMI] 34.0-34.9, adult B rhiannon mass index [BMI] 34.0-34.9, adult Diagnosis 04/17/2021 06:22:00 PM EDT [facility] E669 Obesity, unspecified Obesity, unspecified Diagnosis 04/17/2021 06:22:00 PM EDT [facility] E119 Type 2 diabetes mellitus without complic ations Type 2 diabetes mellitus without complications Diagnosis 04/11/2021 09:33:00 AM EDT [facility] E876 Hypokalemia Hypokalemia Diagnosis 04/01/2021 02:22:00 PM EDT [facility] E039 Hypothyroidism, unspecified Hypothyroidism, unspecifie d Diagnosis 03/16/2021 07:51:00 AM EDT [facility] R918 Other nonspecific abnormal finding of tony ng field Other nonspecific abnormal finding of lung field Diagnosis 03/13/2021 08:33:[address] [facility] N390 Urinary tract infection, site not specif ied Urinary tract infection, site not specified Diagnosis 03/08/2021 11:23:00 AM EDT [facility] A04993 CONTACT WITH AND SUSPECTED EXPOSURE TO C OVID-19 CONTACT WITH AND SUSPECTED EXPOSURE TO COVID-19 Diagnosis 01/31/2021 05:29:00 PM EDT [facility] Z9221 Personal history of antineoplastic chemo therapy Personal history of antineoplastic chemotherapy Diagnosis 01/31/2021 05:29:[address] [facility] Z7982 MCC (current) use of aspirin MCC (cu rrent) use of aspirin Diagnosis 01/31/2021 05:29:00 PM EDT [facility] J439 Emphysema, unspecified Emphysema, unspecified Diagnosi s 01/31/2021 05:29:00 PM EDT [facility] C3412 Malignant neoplasm of upper lobe, left b ronchus or lung Malignant neoplasm of upper lobe, left bronchus or lung Diagnosis 01/31/2021 05:29:00 PM EDT [facility] R042 Hemoptysis Hemoptysis Diagnosis 01/31/2021 05:29:00 PM ED [facility] R05 Cough Cough Diagnosis 01/31/2021 05:29:00 PM ED [facility] Z8616 PERSONAL HISTORY OF COVID-19 PERSONAL HISTORY OF COVID -19 Diagnosis 12/20/2020 01:00:00 PM [facility] J9819 Other pulmonary collapse Other pulmonary collapse Diag nosis 12/20/2020 01:00:00 PM [facility] J189 Pneumonia, unspecified organism Pneumonia, unspecified organism Diagnosis 12/20/2020 01:00:00 PM [facility] R911 Solitary pulmonary nodule Solitary pulmonary nodule Di agnosis 11/24/2020 02:59:00 PM [facility] Z9981 Dependence on supplemental oxygen Dependence on supplemental oxygen Diagnosis 11/24/2020 02:59:00 PM [facility] Z923 Personal history of irradiation Personal history of ir radiation Diagnosis 11/24/2020 02:59:00 PM [facility] J440 Chronic obstructive pulmonar y disease with (acute) lower respiratory infection Chronic obstructive pulmonary disease wi th (acute) lower respiratory infection Diagnosis 11/24/2020 02:59:00 PM [facility] J441 Chronic obstructive pulmonary disease wi th (acute) exacerbation Chronic obstructive pulmonary disease with (acute) exacerbation Diagnosis 11/24/2020 02:59:00 PM [facility] J1282 PNEUMONIA DUE TO CORONAVIRUS DISEASE 201 9 PNEUMONIA DUE TO CORONAVIRUS DISEASE 2019 Diagnosis 11/24/2020 02:59:00 PM [facility] U071 COVID-19 COVID-19 Diagnosis 11/24/2020 02:59:00 PM [facility] N281 Cyst of kidney, acquired Cyst of kidney, acquired Diag nosis 10/12/2020 08:53:00 AM [facility] N179 Acute kidney failure, unspecified Acute kidney f ailure, unspecified Diagnosis 10/12/2020 08:53:00 AM [facility] G459 Transient cerebral ischemic attack, unsp ecified Transient cerebral ischemic attack, unspecified Diagnosis 09/27/2020 05:50:00 PM [facility] D696 Thrombocytopenia, unspecified Thrombocytopenia, unspec ified Diagnosis [facility] Anxiety disorder, unspecified Anxiety disorder, unspec ified Diagnosis [facility]/05/[facility] C3491 Malignant neoplasm of unspecified part o f right bronchus or lung Malignant neoplasm of unspecified part of right bronchus or lung Diagnosis 08/01/2020 11:12:[address] [facility] H90.3 Sensorineural hearing loss, bilateral Se nsorineural hearing loss, bilateral Problem 08/16/2021 12:00:00 AM EDT [facility] ([facility], ) J47.9 Bronchiectasis Bronchiectasis Problem 07/20/2021 12:00: 00 AM EDT [facility] ([facility], ) H91.92 Hearing loss Hearing loss Problem 06/27/2021 12:00:00 A M EDT [facility] ([facility], ) H61.21 Impacted cerumen Impacted cerumen Problem 06/27/2021 12 :00:00 AM EDT [facility] ([facility], ) J47.9 Bronchiectasis Bronchiectasis Problem 06/26/2021 12:00: 00 AM EDT [facility] ([facility], ) Z85.118 History of malignant neoplasm of bronchu s History of malignant neoplasm of bronchus Problem 06/12/2021 12:00:00 AM EDT [facility] ([facility], ) I31.3 Disorder of pericardium Disorder of pericardium Proble m 06/12/2021 12:00:00 AM EDT [facility] ([facility], ) [id number] Essential hypertension Essential hypertension Problem 05/23/2021 12:00:00 AM EDT [facility] ([facility]) M25.552 Arthralgia of the pelvic region and thig h Arthralgia of the pelvic region and thigh Problem 03/01/2021 12:00:00 AM EDT [facility] ([facility], ) [id number] Transient ischemic attack (disorder) Transient I schemic Attack (Tia) Problem 10/05/2020 12:00:00 AM EST CJ (Cesar sanchez MD [facility]) [id number] Transient ischemic attack (disorder) Transient I schemic Attack (Tia) Problem 10/05/2020 12:00:00 AM EST CJ (Cesar sanchez MD [facility]) [id number] Transient ischemic attack (disorder) Transient I schemic Attack (Tia) Problem 10/05/2020 12:00:00 AM EST CJ (Cesar sanchez MD [facility]) Surgeries/Procedures Procedure Description Date Indications Data Source(s) ECHO TTHRC R-T 2D W/WOM-MODE COMPL SPEC&COLR DOP <td>E CHOCARDIOGRAM TRANSTHORACIC</td><td>Routine</td><td>08/22/2021 1:44 PM EDT</td><td></td><td> </td> 08/22/2021 01:44:[address] [facility] ECG ROUTINE ECG W/LEAST 12 LDS TRCG ONLY W/O I&R <td>E CG 12- LEAD</td><td>Routine</td><td>08/22/2021 7:18 AM EDT</td><td></td><td></td> 08/22/2021 07:18:[address] [facility] ECG ROUTINE ECG W/LEAST 12 LDS TRCG ONLY W/O I&R <td>E CG 12- LEAD</td><td>Routine</td><td>08/17/2021 10:57 AM EDT</td><td> PAF (paroxysmal atrial fibrillation)</td><td></td> 08/17/2021 10:57:16 AM EDT PAF (paroxysmal atrial fibrillation) [facility] PAF (paroxysmal atrial fibrillation) BLOOD TYPING ABO <td>TYPE AND SCREEN</td><td> Routine</td><td>08/17/2021 10:45 AM EDT</td><td> PAF (paroxysmal atrial fibrillation)</td><td> </td> 08/17/2021 10:45:00 AM EDT PAF (paroxysmal atrial fibrillation) [facility] PAF (paroxysmal atrial fibrillation) BLOOD COUNT COMPLETE AUTOMATED <td>CBC</td><td>Routine </td><td>08/17/2021 10:30 AM EDT</td><td> PAF (paroxysmal atrial fibrillation)</td><td> </td> 08/17/2021 10:30:00 AM EDT PAF (paroxysmal atrial fibrillation) [facility] PAF (paroxysmal atrial fibrillation) BASIC METABOLIC PANEL CALCIUM TOTAL <td>BASIC METABOLI C PANEL</td><td>Routine</td><td>08/17/2021 10:30 AM EDT</td><td> PAF (paroxysmal atrial fibrillation)</td><td> </td> 08/17/2021 10:30:00 AM EDT PAF (paroxysmal atrial fibrillation) [facility] PAF (paroxysmal atrial fibrillation) OFFICE OUTPATIENT VISIT 15 MINUTES 08/16/2021 12:00:00 AM EDT [facility] ([facility]) OFFICE OUTPATIENT VISIT 25 MINUTES 08/13/2021 12:00:00 AM EDT [facility] (Osmel Alvarez MD) ECG ROUTINE ECG W/LEAST 12 LDS W/I&R 08/13/2021 12:00: 00 AM EDT [facility] (Osmel Alvarez MD) Computerized Tomography (CT Scan) of Chest and Abdomen Computerized Tomography (CT Scan) of Chest and Abdomen 08/03/2021 12:00:00 AM EDT [facility] Introduction of Antiarrhythmic into Peripheral Vein, P ercutaneous Approach Introduction of Antiarrhythmic into Peripheral Vein, Percutaneous Approach 08/03/2021 12:00:00 AM EDT [facility] Monitoring of Cardiac Electrical Activity, External Ap proach Monitoring of Cardiac Electrical Activity, External Approach 08/03/2021 12:00:00 AM EDT [facility] OFFICE OUTPATIENT VISIT 25 MINUTES 07/20/2021 12:00:00 AM EDT [facility] ([facility], ) ECG ROUTINE ECG W/LEAST 12 LDS W/I&R 07/05/2021 12:00: 00 AM EDT [facility] (Osmel Alvarez MD) OFFICE OUTPATIENT VISIT 25 MINUTES 07/05/2021 12:00:00 AM EDT [facility] (Osmel Alvarez MD) Remove Impacted Cerumen 06/27/2021 12:00:00 AM EDT [facility] ([facility], ) OFFICE OUTPATIENT VISIT 15 MINUTES 06/27/2021 12:00:00 AM EDT [facility] ([facility]) OFFICE OUTPATIENT NEW 30 MINUTES 06/27/2021 12:00:00 A M EDT [facility] ([facility]) OFFICE OUTPATIENT VISIT 25 MINUTES 06/26/2021 12:00:00 AM EDT [facility] ([facility]) Bronchoscopy W/Bronchial Alveolar Lavage 06/20/2021 12 :00:00 AM EDT [facility] ([facility]) OFFICE OUTPATIENT VISIT 25 MINUTES 06/12/2021 12:00:00 AM EDT [facility] ([facility]) DUPLEX SCAN EXTRACRANIAL ART COMPL BI STUDY 06/07/2021 12:00:00 AM EDT [facility] (Osmel Alvarez MD) ECG ROUTINE ECG W/LEAST 12 LDS W/I&R 05/31/2021 12:00: 00 AM EDT [facility] (Osmel Alvarez MD) OFFICE OUTPATIENT VISIT 25 MINUTES 05/31/2021 12:00:00 AM EDT [facility] (Osmel Alvarez MD) Electrocardiogram Complete 05/24/2021 12:00:00 AM EDT [facility] ([facility] OFFICE OUTPATIENT NEW 60 MINUTES 05/24/2021 12:00:00 A M EDT [facility] ([facility]) ECG ROUTINE ECG W/LEAST 12 LDS W/I&R 04/30/2021 12:00: 00 AM EDT [facility] (Osmel Alvarez MD) OFFICE OUTPATIENT VISIT 25 MINUTES 04/30/2021 12:00:00 AM EDT [facility] (Osmel Alvarez MD) OBSERVATION CARE DISCHARGE MANAGEMENT 04/20/2021 12:00 :00 AM EDT [facility] (Oseml Alvarez MD) OFFICE OUTPATIENT VISIT 25 MINUTES 04/19/2021 12:00:00 AM EDT [facility] (Osmel Alvarez MD) SBSQ OBSERVATION CARE/DAY MODERATE SEVERITY 04/18/2021 12:00:00 AM EDT [facility] (Osmel Alvarez MD) OFFICE OUTPATIENT VISIT 25 MINUTES 04/17/2021 12:00:00 AM EDT [facility] ([facility], ) INITIAL OBSERVATION CARE/DAY MODERATE SEVERITY 12:00:00 AM EDT [facility] (Osmel Alvarez MD) [...] 25 MINUTES 03/01/2021 12:00:00 AM EDT [facility] ([facility], ) [facility] H[facility]PITAL CARE/DAY 25 MINUTES 02/17/2021 12:00:00 AM EDT [facility] ([facility] ) [facility] 25 MINUTES 02/16/2021 12:00:00 AM EDT [facility] ([facility] 25 MINUTES 02/14/2021 12:00:00 AM EDT [facility] ([facility] ) [facility] 25 MINUTES 02/13/2021 12:00:00 AM EDT [facility] ([facility], ) Bronchoscopy W/Biopsy 02/12/2021 12:00:00 AM EDT [facility] ([facility], ) SBSQ HOSPITAL CARE/DAY 25 MINUTES 02/11/2021 12:00:00 AM EDT [facility] ([facility], ) SBSQ HOSPITAL CARE/DAY 25 MINUTES 02/10/2021 12:00:00 AM EDT [facility] ([facility], ) SBSQ HOSPITAL CARE/DAY 25 MINUTES 02/09/2021 12:00:00 AM EDT [facility] ([facility], ) SBSQ HOSPITAL CARE/DAY 25 MINUTES 02/08/2021 12:00:00 AM EDT [facility] ([facility] ) [facility] 25 MINUTES 02/06/2021 12:00:00 AM EDT [facility] ([facility], ) Spirometry 01/30/2021 12:00:00 AM EDT M [facility] ([facility], ) OFFICE OUTPATIENT VISIT 25 MINUTES 01/30/2021 12:00:00 AM EDT [facility] ([facility], ) OFFICE OUTPATIENT VISIT 25 MINUTES 01/29/2021 12:00:00 AM EDT [facility] (Osmel Alvarez MD) OFFICE OUTPATIENT VISIT 15 MINUTES 01/18/2021 12:00:00 AM EDT [facility] ([facility], ) OFFICE OUTPATIENT VISIT 25 MINUTES 01/17/2021 12:00:00 AM EDT [facility] ([facility], ) [facility] HOSPITAL CARE/DAY 25 MINUTES 12/26/2020 12:00:00 AM EST [facility] ([facility] ) [facility] CARE/DAY 25 MINUTES 12/25/2020 12:00:00 AM EST [facility] ([facility] ) [facility] HOSPITAL CARE/DAY 25 MINUTES 12/24/2020 12:00:00 AM EST [facility] ([facility], ) HOSPITAL DISCHARGE DAY MANAGEMENT 30 MIN/< 12/23/2020 12:00:00 AM EST [facility] (Osmel Alvarez MD) Plain Radiography of Chest Plain Radiography of Chest 2020 12:00:00 AM [facility] HOSPITAL CARE/DAY 15 MINUTES 12/22/2020 12:00:00 AM EST [facility] (Osmel Alvarez MD) [facility] HOSPITAL CARE/DAY 25 MINUTES 12/21/2020 12:00:00 AM [...] Group 5 11/24/2020 12:00:00 AM [facility] Introduction of Anesthetic Agent into Re spiratory Tract, Via Natural or Artificial Opening Introduction of Anesthetic Agent into Re spiratory Tract, Via Natural or Artificial Openin 11/24/2020 12:00:00 AM [facility] Introduction of Other Anti-infective int o Peripheral Vein, Percutaneous Approach Introduction of Other Anti-infective int o Peripheral Vein, Percutaneous Approach 11/24/2020 12:00:00 AM [facility] Blood culture for bacteria, including anaerobic screen (proc edure) 11/24/2020 12:00:00 AM [facility] ECG ROUTINE ECG W/LEAST 12 LDS [...] 12:00:00 AM EST CJ (David Barrow MD [facility]) Intermediate Eye Exam Established Patient Intermediate Eye Exam Established Patient 10/05/2020 12:00:00 AM EST CJ (David Barrow MD [facility]) ECHO TTHRC R-T 2D W/WOM-MODE COMPL SPEC&COLR DOP 10/03 12:00:00 AM EST [facility] (Osmel Alvarez MD) XTRNL ECG < 48 HR RECORD SCAN STOR W/PHY R&I 0 12:00:00 AM EDT [facility] (Osmel Alvarez MD) ECHO TTHRC R-T 2D W/WOM-MODE COMPL SPEC&COLR DOP 08/18 12:00:00 AM EDT [facility] (Osmel Alvarez MD) Results ID Date Data Source [id number] 08/22/2021 02:12:[address] [facility] Name Value Range Interpretation Code Description Data Maura rce(s) Supporting Document(s) &PDF [facility] HOLTYi8bPsMQXlGw71/TLOrvAEAke1NdJYqpAIa9PSaoXEArH6LfrCwoRSbDBzOKOZ0yE8RYQQOUZH5U yZW [file] ICAgICAgICAgICAgICAgICAgICAgICAgICAgICAgIC ZeWCVvOAQqUCWbPZHyRIMwIKIkTEAmLTHqCDUeAIKnABZdMWTfJTXmUTSjCK8NUYEsXOFuLGTgRBKjWJ AgICAgICAgICAgICAgICAgICAgICAgICAgICAgICAgICAgICAgICAgICAgICAgICAgICAgICAgICAgIC CyNBRhBJUtFEGxYQWgQGDyXTClSKGiQWFhDM8SXJWs ICAgICAgICAgICAgICAgICAgICAgICAgICAgICAgICAgICAgICAgICAgICAgICAgICAgICAgICAgICAg LJUxOXKbCFKvGSWmBGOtMPQwXPTzIRIhDVMwUTEvHBAcQPBqNS7NAYTiHYBiFUQqTNRxMDEtFSLtTJEr ICAgICAgICAgICAgICAgICAgICAgICAgICAgICAgIC TsKLSxCQTmMAVeTVAyITZnNJTuXIMuEIXsKLNkVNIrNIKtOMThIPYyJZEhBPGvBN2QXPQmZOFfVJXxMY AgICAgICAgICAgICAgICAgICAgICAgICAgICAgICAgICAgICAgICAgICAgICAgICAgICAgICAgICAgIC CrKVZhFTDdEOZyOUHcNNAxRMDzLCIiUTSaVNNuTL5P ICAgICAgICAgICAgICAgICAgICAgICAgICAgICAgICAgICAgICAgICAgICAgICAgICAgICAgICAgICAg FGWcNZLzGGGtATKsUANzIUQbFUXtJNXfEVWcWRQhEPGxIEJzHFHdFG1DKABrHUIdQAMpTKBwCTYtZARk ICAgICAgICAgICAgICAgICAgICAgICAgICAgICAgIC SsUXLcKTUrEZAjCHYaKHHuBCXrNSZrUCIwGPCzDCVgNTRgDVIyNDLhTZAoIWBvUSLuBF5ALUWuYQRmZL AgICAgICAgICAgICAgICAgICAgICAgICAgICAgICAgICAgICAgICAgICAgICAgICAgICAgICAgICAgIC AgICAgICAgICAgICAgICAgICAgICAgICAgICAgICAg AH3THXTsYVXyKADjKCOgCEZmYACnZBAqKNDoDUCdQUSsVBViQBCiTDVgOOJcLJYbNGJySPYoEWXdMRQv TOZhSCFxXATmHGDyUIDeWOPoGCEoIPLpKAFhOBLeXLRkEXOjEUIgLEKqOI1MPOUaVVPgHIQpCNLsEIJu ICAgICAgICAgICAgICAgICAgICAgICAgICAgICAgIC WaWVBdGJFtATEdZBCsKSYpGQEdTHVoAPHoLEIfEKRgHGIrLACkYXAuQWWgJJZwSTKwODNrSC3PTL33aN Aqw3D2WXAwHL0dpgg/Jn5TVEdlblTvjIWbQO5QFtAfZT4wxf5EPjZmSZ0aqy4BSBhJMeDbI0E7hYXkDN KeTCLJZkBpB11zBPrrJh96WUhiLOOjMdWsYMw1Bf1G YlKoL4ljGHNgGuK3SIIdAhN9QFYoPzBdKUtdGG1Xv1LaaRRoZFh+En9IXS4nd2OiWQgfSrQhGI0uix4L CHcPCzFuX8Y0hROyW4Y3LHwxUr4VNZFaGAFgZeKyJFTCGBssXO8SGW6yfzE2IA3NeHAwTDJeJLEraHHi HVm9H41rrLJvEFhlFC3OJZW+Guilherme+Ff2LSTGlPHVsTM NnDyCkDFEBKbSfN87uuIKrWAOkYJJ1REAoYs9TQDSwP2HqsrFaeXfmnhVeYVPmMQYEFA1UNGrnhcLukG HjqUwrVV84kLsqDR3ZZy1AVlLiCW2vct0EfYNnHp0HBMXfWb5VOFAkQIXcFMWsZLY0NZPbWaGrCYpkKY ElYZZcEUZ1MRKuSSOpID2LWgBtRDBaOaIsVLzrKEXt RPHhdy1XRLSuNXPzKtxzEoBfZSIwHCAiQExjELQqXNHsHTh1MMIqTENgYU6PNnFhYMKcKPGrNrWkRHCw QCCvpv9AEUOuYBHtNxQaQxYwPRMmIUQwDMnsUPCiTWE2JwBtPCXxFPMeFU5MWeFiXTJtBUA3VkosDVBx YXLqbm6XJOZwEYBhVwn3JgRsYMFkKAZfJTgtTRLsDM T6YEryNPSiYEWuGL2TNhOkPUCaOBjyYlFvYMOmRBFqwq9ZERDvHXQxDWJnBtPhUSIsYBMeWTyiGCHaFB Q3REH9ECTaDMLlKL3FEoByVFIqRXx4HxIhHVQzYUQawy5ZPCRaIJRjExK6QVIgNZCiVEUsAJlkUDOyQU SpKht9GOUoXNLaUU3CKuXfEMDfEGPqFPhbDXSkOXLn vj0SMCYtJKJhLVI6AfAnYEXnZWKkTHahYNIvSUQ7Dkf6TNOnNEQrEA7SZmXwRCKyQTTyYpUlVSIhRVRh sv0RUROfLEClMMXaIICjDBCcHHPrTNorUCSbCPW5Neo8TDXdMTGfFQ0MQmOyGINwLtL1USRnQDMeRPPa ro3ORTZiLYTmUMFeFpDeWXGeZIFtAKlkSKRmWAF2WM txFZUdULAcOU4YAsIiUNOcQgayIAleLFNsCNPctc8LkHDyaXnwus5YRBfQNz8HkOhtLJJ8EGflSk6neX IqGcCwSVSGGo4XniWwQQOsKPQTNVvnHSYwOUJnDUC9HZjbRgZoVDK2AVPzNLokCTQzU2PfYEKoYKQbAl V0StSuYHA0AFHrT2PdKLmiYLL4WFZlGcVsF4B0LOPq Y2Y+UB7gZHc+Hb2By6LydaC9gjPdZSjpNgBgNF2IEISJT2ANIv== ID Date Data Source [id number] 08/22/2021 11:15:25 AM [facility]T [facility] Name Date of Age Gend*PT [id number] Solomon Chantale E 1965 56 years F HOPPT Location Admission Date/Time Visit ID Attending Provider --- --- --- --- EPI ID CSN Admitting Provider [id number] ---Arterial Line PlacementPatient location during procedure: ORIndications [...] rce(s) Supporting Document(s) ID Date Data Source [id number] 08/22/2021 09:06:[address] [facility] Name Value Range Interpretation Code Description Data Maura rce(s) Supporting Document(s) EKG [facility] XXHBCr7mDlEHFhUmq9ItXrMgKSTfEE6hatv0V5S8nMEvD9LwvUCeo2frQ7NjY0ScORPbDOJJXP9DkFMm jb2 [file] OTggMDAwMDAgbiAKMDAwMDAwMDQwOSAwMDAwMCBuIA idBWEoRRFyRRHrXKHlUVDlWR9gYeRlGZNfMIG6LGPoENIuHRNnqlFKFXEfDEMkPIr8WFAbXUWlFRRaTQ isELYaTPJcVJH3XWEuZNDcXZ2tMpVrKCAzEKM6YxJyRTGxQUMmcyXRDLPyCAUhVHX9IpEjRTKuMWJxEK fnRRImXUJvERvyGNWrJARsFF4oPsUlJQXtMPOxVGfn UMNfSPNfycKQFDJjIGKrAXKuUcHtNAHkSNZlXQpxFQRrXBUyGXI3NJVaBEYpPN6wVbWjJOWvFWE1XRqg TFPaTTCpksZAECKfRVKhABizZNWhDKMbGPOhMGptCHFpQFDbLVM8JWKfURCsBR0eKuZrRLNvSAKmEZAe DbB0ClBjSxWEdEWsmFzutky7LPlzB9r9DHPxOFyjDN 9sgkPmUWPtWnqiTg0wcTT2AJTfJskLFj1Zr5HsfqK2csZdGbQmUhHhYcMcGL3R ID Date Data Source [id number] 08/22/2021 09:02:11 AM EDT [facility]FORMATIONPatient MRN Name Date of Age Gend*PT [id number] Chantale Solomon 1965 56 years F HOPPT Location Admission Date/Time Visit ID Attending [id number] 08/22/21 0643 --- M Berny Vu MD([id number]) EPI ID CSN Admitting Provider [id number] Kareem Vu MD([id number])Inpatient History & PhysicalGertrudedoreen SolomonMRN:[id number]: here for AF ablationPast Medical History:Past Medical History:Diagnosis Date Anemia Anxiety Cataracts, bilateral COPD (chronic obstructive pulmonary disease) Uses 2-3L of supplemental oxygen at baseline Eczema Fasciitis GERD (gastroesophageal reflux disease) Hemoptysis KAIBAB (hard of hearing) Hypertension Lung cancer With [...] by mouth 5 (five) times a week , Friday, , Friday, and Friday Magnesium 500 [...] catheter every 42 days (6 weeks) Tiotropium [place] Monohydrate (Spiriva Respimat) 2.5 MCG/ACT AERS Inhale [...] rce(s) Supporting Document(s) ID Date Data Source [id number] 08/22/2021 08:52:14 AM EDT [facility]FORMATIONPatient [facility] Name Date of Age Gend*PT [id number] Chantale Solomon 1965 56 years F HOPPT Location Admission Date/Time Visit ID Attending Provider --- --- --- --- EPI ID CSN Admitting Provider [id number] ---AirwayPatient location during procedure: ORUrgency: electiveDifficult airway: [...] to lips: 21 cmPlacement verified by: + [id number] view: grade IIa - partial view of glottis Name Value Range Interpretation Code Description Data Maura rce(s) Supporting Document(s) ID Date Data Source [id number] 08/17/2021 04:43:11 PM EDT [facility]FORMATIONPatient [facility] Name Date of Age Gend*PT [id number] Chantale Solomon 1965 56 years F OPPT Location Admission Date/Time Visit ID Attending Provider --- --- --- Kareem Vu MD([id number]) EPI ID CSN Admitting Provider [id number] ---OUTPATIENT / OBSERVATIONAL SURGICAL OR INVASIVE PROCEDUREName: [...] Eczema Fasciitis GERD (gastroesophageal reflux disease) Hemoptysis KAIBAB (hard of hearing) Hypertension Lung cancer With [...] mouth 3 (three) times a dayHistorical Provider, MDdronedarone HCl (MULTAQ) 400 MG tablet Take 400 [...] 42 days (6 weeks) Historical Provider, Tiotropium [place] Monohydrate (Spiriva Respimat) 2.5 MCG/ACT AERS Inhale 2puffs daily Historical Provider, PRABHUocial HistoryTobacco Use Smoking status: Former Smoker Packs/day: [...] thyromegaly. No carotid bruits.MENTAL / NEUROLOGICAL STATUS: [id number]: Decreased over left lung. No wheezes, rhonchi [...] parts of this document, were dictated using Ayla speaking software. A reasonable attempt at proofreading has beenmade to minimize errors. Please call with any questions or corrections. Name Value Range Interpretation Code Description Data [facility] Supporting Document(s) ID Date Data Source [id number] 08/17/2021 10:59:[address] [facility] Name Value Range Interpretation Code Description Data [facility] Supporting Document(s) EKG [facility] GERLKd5wTjHAJkYrp7EuLxVbEVWyEY3gjpl0C8S1uVTcB8AtbQYyu1msF5HwP6OwWCUhGJPFZT8TxUBc jb2 [file] AwMDAwMDUyMyAwMDAwMCBuIAowMDAwMDAwNjQxIDAw VEEeEO9tAaMwPHSqPSG2GVFoJUXhXWZlmuSZXPRlVYWqOPz8SBNzJPCzBTJzIIwzPBXfCBGwUVG7CTOb OAYdBN4sPhDuWUZhVQUkEWNiICEbKZCwasQZKAJnVRJjLPJ9OELuIFShEUCsGBivCNKeEYHaWzq2LEAj PSUeIF0nTrSbSGXiNAE3CIXoPLEvFPHmmgNEGMXkWL Q5AfE1FHZzNCGuDFPqFJhtOBXiDTPxTmR7JUSvDCAxNK8aRiUlAUKeUDY7CwQqGAWqUFVcjmDUXJUtFN AfHAU1TqLdHBCwGATqLEnjVNWpFQYyJBOdIAB6YSU9QEAeZjRtOCnxCIOJVNdYQ7EutiKwPfDLJ7mpQj 6sOyZaRRUSC2Gsc7CmVSWlRPXTKq5+PnF6EHG8zIRbJwx6Yap9QsmsLGUZYu== ID Date Data Source [id number] 08/17/2021 07:13:49 PM EDT [facility] SPEC EXP DATE 08/23/2021ATI ENT ABO/Rh A POSITIVEANTIBODY SCREEN NEGATIVETESTING SITE PERFORMED AT [address] [place] [id number] Name Value Range Interpretation Code Description Data Maura rce(s) Supporting Document(s) TYPE AND SCREEN [facility] ID Date Data Source [id number] 08/17/2021 01:52:40 PM EDT [facility] Name Value Range Interpretation Code Description Data Maura rce(s) Supporting Document(s) SODIUM 140 mmol/L (136-145) [facility] POTASSIUM 4.0 mmol/L (3.6-5.2) [facility] CHLORIDE 103 mmol/L (100-108) [facility] CO2 31 mmol/L (22-31) [facility] ANION GAP 6 mmol/L (7-16) L [facility] UREA NITROGEN 14 mg/dL (7-24) [facility] CREATININE 1.24 mg/dL (0.60-1.00) H [facility] BUN/CREAT RATIO 11.3 RATIO (10.0-20.0) [facility] GLUCOSE 104 mg/dL (70-99) H [facility] CALCIUM 8.8 mg/dL (8.4-10.2) [facility] GFR 45 ml/min/1.73m2 (>59) L [facility] GFR ([facility]) 54 ml/min/1.73m2 (>59) L [facility] GFR INTERPRETATION [facility] --NORMAL KIDNEY FUNCTION OR MILD DISEASE - GFR >OR= 60CHRONIC KIDNEY DISEASE - GFR 15 - 59RENAL FAILURE - GFR <15 Est. GFR calculation based on the MDRDstudy equation, which assumes a steadystate for creatinine. Est. GFR should notbe used for medication dosing. ID Date Data Source [id number] 08/17/2021 01:37:01 PM EDT [facility] Name Value Range Interpretation Code Description Data Maura rce(s) Supporting Document(s) WBC 8.8 10*3/uL (4.1-11.0) [facility] [place] RBC 2.70 10*6/uL (4.00-5.40) L [facility] HGB 9.5 g/dL (12.0-16.0) [facility] HCT 28.7 % (36.0-47.0) [facility] MCV 106.2 fL (80.0-95.0) [facility] MCH 35.1 pg (27.0-32.0) [facility] MCHC 33.1 g/dL (32.0-36.0) [facility] RDW 17.4 % (10.5-14.5) [facility] PLT 257 10*3/uL (150-450) [facility] MPV 8.0 fL (7.1-10.7) [facility] ID Date Data Source [id number] 08/18/2021 06:43:58 AM EDT [facility] Name Value Range Interpretation Code Description Data Maura rce(s) Supporting Document(s) SPECIMEN DESCRIPTION [facility] COVID 19 RESULT (NDET) [facility] NEGATIVE COVID-19 RESULTS DONOT PRECLUDE COVID-2019 INFECTION ANDSHOULD NOT BE USED THE SOLE BASISFOR PATIENT MANAGEMENT DECISIONS. COMMENT [facility] [place] FDA HAS MADE THIS TEST AVAILABL PAIGEER AN EMERGENCY USE AUTHORIZATION(EUA) FOR THE DETECTION AND/OR DIAGNOSISOF THE VIRUS THAT CAUSES COVID-19.THIS ASSAY AMPLIFIES AND DETECTS [employer] USING ASSISTANT FRONT OFFICE MANAGER- MEDIATEDAMPLIFICATIONTESTING PERFORMED ON Motally FIRST TEST [facility] EMPLOYED IN [employer] [facility] SYMPTOMATIC [facility] Y DATE OF SYMPT ONSET [facility] CONGREGATE CARE SET [facility] ID Date Data Source [id number] 08/04/2021 07:58:00 [place] [address] PROGRESS NOTENAME: JUANITO Daniels ROOM#: [id number] OF : 1965 MR#: [id number] DATE: 08/01/21 OF SERVICE: 08/04/21SUBJECTIVE: This patient [...] a PET scan on August 13 at [facility].DD: Osmel Alvarez MD, PC 08/04/21 10:32DT: DMAutumn 08/04/21 19:58DS: Osmel Alvarez MD, PC 08/09/21 08:09 1 Name Value Range Interpretation Code Description Data Maura rce(s) Supporting Document(s) ID Date Data Source [id number] 08/03/2021 10:51:00 [place] [address] PROGRESS NOTENAME: JUANITO Daniels ROOM#: [id number] OF : 1965 MR#: [id number] DATE: 08/01/21 OF SERVICE: 08/03/21SUBJECTIVE: This patient [...] Osmel Alvarez MD, PC 08/03/21 09:33 1 [place] [address] PROGRESS NOTENAME: JUANITO Daniels ROOM#: [id number] OF : 1965 MR#: [id number] DATE: 08/01/21 : SONYA 08/03/21 22:48DS: Osmel Alvarez MD, PC 08/09/21 08:09 2 Name Value Range Interpretation Code Description Data Maura rce(s) Supporting Document(s) ID Date Data Source [id number] 08/02/2021 11:41:00 [place] [address] PROGRESS NOTENAME: JUANITO Daniels ROOM#: [id number] OF : 1965 MR#: [id number] DATE: 08/01/21 OF SERVICE: 08/02/21SUBJECTIVE: This patient [...] p.o. We will maximize anti-arrhythmic therapy. [address] [place] [address] PROGRESS NOTENAME: JUANITO Daniels ROOM#: [id number] OF : 1965 MR#: [id number] DATE: 08/01/21 4. We will get an [...] rce(s) Supporting Document(s) ID Date Data Source [id number] 08/06/2021 12:48:00 [place] [address] HISTORY AND PHYSICALNAME: JUANITO Daniels ROOM#: [id number] OF : 1965 MR#: [id number] PHYS: Osmel Alvarez MD, PC DATE: 08/01/21DATE [...] spine, septoplasty, tubal ligation.REVIEW OF SYSTEMS: [address] [place] [address] HISTORY AND PHYSICAL NAME: JUANITO Daniels ROOM#: CCU2 DATE OF : 1965 MR#: [id number] ATTENDING PHYS: Osmel Alvarez MD, PC ADMISSION DATE: 08/01/21The patient has chest pain [...] Paroxysmal atrial fibrillation, recurrent, rapid rate. [address] [place] [address] HISTORY AND PHYSICALNAME: JUANITO Daniels ROOM#: [id number] OF : 1965 MR#: [id number] PHYS: Osmel Alvarez MD, PC DATE: . [...] rce(s) Supporting Document(s) ID Date Data Source [id number] 08/06/2021 01:14:00 [place] [address] DISCHARGE SUMMARYNAME: JUANITO Daniels ROOM#: 109-1DATE OF : 1965 MR#: [id number] PHYS: [id number] DATE: 08/01/21 DISCHARGED: 08/05/21REASON FOR ADMISSION: This [...] mg daily5. Multaq 400 mg b.i.d. 1 [place] [address] DISCHARGE SUMMARYNAME: JUANITO Daniels ROOM#: 109-1DATE OF : 1965 MR#: [id number] PHYS: Osmel Alvarez MD, PC DATE: 08/01/21 [...] is scheduled for atrial fibrillation ablation at [facility] in three weeks.FINAL DIAGNOSES:1. Paroxysmal atrial fibrillation, recurrent.2. History of right pulmonary emboli.3. 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 Carcinoma of the left lung.5. History of COPD.DD: Osmel Alvarez MD, PC 08/05/21 11:21DT: SONYA 08/06/21 01:14DS: Osmel Alvarez MD, PC 08/09/21 08:09 2 Name Value Range Interpretation Code Description Data Maura rce(s) Supporting Document(s) ID Date Data Source [id number] 08/09/2021 07:42:00 [place] [address] RESPIRATORY CARE REPORT ==== ---------NAME------- NUMBER SEX AGE ADMIT DISC. XRAY# F/C CYNDY Daniels [id number] F 56 08/01/21 08/05/21 [id number] B1 I/P DATE OF : 1965 M/R# [id number] PH#: [phone] 109-1 LOCATION: EMERGENCY DEPT EKG 17825 COMP LETE:08/05/21 10:27 [place] [id number] PHYSICIAN: KIM MENDEZ Name Value Range Interpretation Code Description Data Maura rce(s) Supporting Document(s) ID Date Data Source [id number] 08/09/2021 07:41:00 [place] [address] RESPIRATORY CARE REPORT ==== ---------NAME------- NUMBER SEX AGE ADMIT DISC. XRAY# F/C CYNDY Daniels [id number] F 56 08/01/21 08/05/21 [id number] B1 I/P DATE OF : 1965 M/R# [id number] PH#: [phone] 109-1 LOCATION: EMERGENCY DEPT EKG 80514 COMP LETE:08/04/21 12:30 [place] [id number] PHYSICIAN: KIM MENDEZ Name Value Range Interpretation Code Description Data Maura rce(s) Supporting Document(s) ID Date Data Source [id number] 08/09/2021 07:40:00 AM EDT [address] [address] RESPIRATORY CARE REPORT ==== ---------NAME------- NUMBER SEX AGE ADMIT DISC. XRAY# F/C CYNDY Daniels [id number] F 56 08/01/21 08/05/21 [id number] B1 I/P DATE OF : 1965 M/R# [id number] PH#: [phone] 109-1 LOCATION: EMERGENCY DEPT EKG 77205 COMP LETE:08/03/21 11:00 CJM 24459 PHYSICIAN: KIM MENDEZ Name Value Range Interpretation Code Description Data Maura rce(s) Supporting Document(s) ID Date Data Source [id number] 08/09/2021 07:38:00 [place] [address] RESPIRATORY CARE REPORT ==== ---------NAME------- NUMBER SEX AGE ADMIT DISC. XRAY# F/C CYNDY Daniels [id number] F 56 08/01/21 08/05/21 [id number] B1 I/P DATE OF : 1965 M/R# [id number] PH#: [phone] 109-1 LOCATION: EMERGENCY DEPT EKG 06055 COMP LETE:08/02/21 07:16 CLC 83685 PHYSICIAN: KIM MENDEZ Name Value Range Interpretation Code Description Data Maura rce(s) Supporting Document(s) ID Date Data Source [id number] 08/09/2021 07:37:00 [place] [address] RESPIRATORY CARE REPORT ==== ---------NAME------- NUMBER SEX AGE ADMIT DISC. XRAY# F/C OSMANIJUANITO KYLEKULDIP Daniels [id number] F 56 08/01/21 08/05/21 [id number] B1 I/P DATE OF : 1965 M/R# [id number] #: [id number] 109-1 LOCATION: EMERGENCY DEPT EKG 26173 COMP LETE:08/09/21 07:36 CLC 25288 PHYSICIAN: KIM Coronado Value Range Interpretation Code Description Data Maura rce(s) Supporting Document(s) ID Date Data Source [id number] 08/09/2021 07:32:00 [place] [address] RESPIRATORY CARE REPORT ==== ---------NAME------- NUMBER SEX AGE ADMIT DISC. XRAY# F/C OSMANISUREKHAAMELIA AMAYAHERKULDIP Daniels [id number] F 56 08/01/21 08/05/21 [id number] B1 I/P DATE OF : 1965 M/R# [id number] PH#: [phone] 109-1 LOCATION: EMERGENCY DEPT EKG 59680 COMP LETE:08/01/21 10:59 CLC 28863 PHYSICIAN: KIM STUBBS Name Value Range Interpretation Code Description Data Maura rce(s) Supporting Document(s) ID Date Data Source [id number] 08/05/2021 06:33:00 AM EDT [facility] (Osmel Alvarez MD) Name Value Range Interpretation Code Description Data Maura rce(s) Supporting Document(s) Magnesium [Mass/volume] in Serum or Plasma 1.8 mg/dL 1.7-2.2 [facility] (Osmel Alvarez MD) ID Date Data Source [id number] 08/05/2021 06:33:00 AM EDT [facility] (Osmel Alvarez [...] 1 50-450 Below low normal [facility] (Osmel Avlarez MD) Laboratory test finding (navigational concept) 65.4 [...] (Osmel Alvarez MD) ID Date Data Source [id number] 08/05/2021 06:33:00 AM EDT [facility] (Osmel Alvarez [...] (Osmel Alvarez MD) ID Date Data Source [id number] 08/05/2021 07:45:00 AM EDT [facility] Name Value Range Interpretation Code Description Data Maura rce(s) Supporting Document(s) COMPREHENSIVE METABOLIC PANEL [facility] COMPREHENSIVE METABOLIC PANEL Sodium [Moles/volume] in Serum or Plasma 139 mEq/L 134 - 153 [facility] Potassium [Moles/volume] in Serum or Plasma 4.1 mEq/L 3.6 - 5.0 [facility] Chloride [Moles/volume] in Serum or Plasma 101 mEq/L 98 - 107 [facility] Carbon dioxide, total [Moles/volume] in Serum or Plasma 28 MEQ/L 22 - 30 [facility] Glucose [Mass/volume] in Serum or Plasma 100 MG/DL 70 - 99 H [facility] BUN 18 MG/DL 7 - 21 [facility] Creatinine [Mass/volume] in Serum or Plasma 1.2 MG/DL 0.7 - 1.5 [facility] BUN/CREAT 15 8 - 27 [facility] Protein [Mass/volume] in Serum or Plasma 5.6 G/DL 6.3 - 8.2 L [facility] Albumin [Mass/volume] in Serum or Plasma 3.2 G/DL 3.9 - 5.0 L [facility] Globulin [Mass/volume] in Serum by calculation 2.4 GM/DL 2.4 - 3.2 [facility] A/G RATIO 1.3 0.8 - 2.0 [facility] Calcium [Mass/volume] in Serum or Plasma 8.7 MG/DL 8.4 - 10.2 [facility] Bilirubin.total [Mass/volume] in Serum or Plasma <0.7 MG/DL 0.2 - 1.3 [facility] Alkaline phosphatase [Enzymatic activity/volume] in Serum or Plasma 157 U/L 38 - 126 H [facility] Aspartate aminotransferase [Enzymatic activity/volume] in Serum or Plasma 30 U/L 5 - 40 [facility] Alanine aminotransferase [Enzymatic activity/volume] in Seru m or Plasma 25 U/L 7 - 56 [facility] Anion gap 3 in Serum or Plasma 10.0 mmol/L 8.0 - 16.0 [facility] AGE 56 yrs [facility] al NON-AA GFR 49 mL[facility] AMER GFR 60 mL/min [facility] Male GFR In [...] >32 mL/min Normal ID Date Data Source [id number] 08/05/2021 07:45:00 AM T [facility] Name Value Range Interpretation Code Description Data Maura rce(s) Supporting Document(s) Magnesium [Mass/volume] in Serum or Plasma 1.8 MG/DL 1.7 - 2.2 [facility] ID Date Data Source [id number] 08/05/2021 07:31:00 AM EDT [facility] Name Value Range Interpretation Code Description Data Maura rce(s) Supporting Document(s) CBC W/AUTOMATED DIFF [facility] COMPLETE BLOOD COUNT Leukocytes [#/volume] in Blood by Automated count 4.7 10^3/uL 4.2 - 1 1.0 [facility] Erythrocytes [#/volume] in Blood by Automated count 2.51 10^6/uL 4. 20 - 5.40 L [facility] Hemoglobin [Mass/volume] in Blood 8.7 g/dL 12.0 - 16.0 L [facility] Hematocrit [Volume Fraction] of Blood by Automated count 26.3 % 3 7.0 - 47.0 L [facility] Erythrocyte mean corpuscular volume [Entitic volume] b y Automated count 104.8 fL 81.0 - 101 H [facility] Erythrocyte mean corpuscular hemoglobin [Entitic mass] by Automated count 34.7 pg 27.0 - 34.0 H [facility] Erythrocyte mean corpuscular hemoglobin concentration [Mass/volume] by Automated count 33.1 g/dL 31.0 - 36.0 [facility] Erythrocyte distribution width [Ratio] by Automated count 14.0 % 11.5 - 14.5 [facility] Platelets [#/volume] in Blood by Automated count 113 10^3/uL 150 - 45 0 L [facility] Platelet mean volume [Entitic volume] in Blood by Automated count 10.7 fL 7.4 - 10.4 H [facility] Neutrophils/100 leukocytes in Blood by Automated count 65.4 % 37. 0 - 80.0 [facility] Lymphocytes/100 leukocytes in Blood by Manual count 6.8 % 25.0 - 40.0 L [facility] Monocytes/100 leukocytes in Blood by Automated count 18.9 % 3.0 - 8.0 H [facility] Eosinophils/100 leukocytes in Blood by Automated count 7.2 % 0.0 - 7.0 H [facility] Basophils/100 leukocytes in Blood by Automated count 0.4 % 0.0 - 2.5 [facility] %IG 1.3 % 0.0 - 0.0 H [facility] al %NRBC 0.0 % 0.0 - 0.0 [facility] al Neutrophils [#/volume] in Blood by Automated count 3.09 10^3/uL 2.00 - 6.90 [facility] Lymphocytes [#/volume] in Blood by Automated count 0.32 10^3/uL 0.60 - 3.40 L [facility] Monocytes [#/volume] in Blood by Automated count 0.89 10^3/uL 0.00 - 0.90 [facility] Eosinophils [#/volume] in Blood by Automated count 0.34 10^3/uL 0.00 - 0.70 [facility] Basophils [#/volume] in Blood by Automated count 0.02 10^3/uL 0.00 - 0.20 [facility] #IG 0.06 10^3/uL 0.00 - 0.10 [facility] #NRBC 0.00 10^3/uL 0.00 - 0.00 [facility] MANUAL DIFF NOT INDICATED [facility] RBC MORPH NOT INDICATED [facility] spital ID Date Data Source [id number] 08/04/2021 05:33:00 PM EDT [facility] [address] [place] [address] PHONE: [phone] FAX: [phone] Name .................. : JUANITO Daniels Acct Number.................. : [id number] ROOM. ................. : CCU2 MR Number ................... : [id number] Stay type ............. : I/P Discharge Date......... ... : Admit Date ......... : 08/01/21 Admit Phys .................... : KIM VANESSA Date of ....... : 1965 Family Phys ................... : REGINE GAIL Phone .................. : [phone] Age ................................ : 56 Film# .................. .:[id number] Sex ................................. : F Unsigned transcriptions are preliminary reports and do not represent a medical or legal document CT THORAX W/O CONTRAST [id number] COMPLETE:08/03/21 09:43 66745 Reason for Exam: RT RIBCADGE METASTATIC DISEASE PLEURISY LEFT LUNG CT ABD & PELV W/[place] ORAL W/[place] [id number] COMPLETE:08/03/21 09:42 27789 Reason for Exam: METASTATIC DISEASE PELVIS,BONE, LIVER [...] No axillary adenopathy. Page 1 of [address] [facility] [address] [place] [address] PHONE: [phone] FAX: [phone] Name .................. : JUANITO Daniels Acct Number.................. : [id number] ROOM. ................. : CCU2 MR Number ................... : [id number] Stay type ............. : I/P Discharge Date......... ... : Admit Date ......... : 08/01/21 Admit Phys .................... : KIM MENDEZ Date of ....... : 1965 Family Phys ................... : SEQUEIRA Phone .................. : [phone] Age .......... ...................... : 56 Film# .................. .:[id number] Sex ................................. : F Unsigned transcriptions are preliminary reports and do not represent a medical or legal document CT THORAX W/O CONTRAST [id number] COMPLETE:08/03/21 09:43 93954 Reason for Exam: RT RIBCADGE METASTATIC DISEASE PLEURISY LEFT LUNG CT ABD & PELV W/[place] ORAL W/[place] [address] COMPLETE:08/03/21 09:42 57875 Reason for Exam: METASTATIC DISEASE PELVIS,BONE, LIVER [...] adenopathy. No AAA. Page 2 of 3 [facility] [address] [place] [address] PHONE: [phone] FAX: [phone] Name .................. : JUANITO ROMAN Jeremiah nesser.................. : [id number] ROOM. ................. : CCU2 MR Number ................... : [id number] Stay type ............. : I/P Discharge Date......... ... : Admit Date ......... : 08/01/21 Admit Phys .................... : KIM VANESSA Date of ....... : 1965 Family Phys ................... : REGINE GAIL Phone .................. : [phone] Age ................................ : 56 Film# .................. .:[id number] Sex ................................. : F Unsigned transcriptions are preliminary reports and do not represent a medical or legal document CT THORAX W/O CONTRAST [id number] COMPLETE:08/03/21 09:43 48082 Reason for Exam: RT RIBCADGE METASTATIC DISEASE PLEURISY LEFT LUNG CT ABD & PELV W/[place] ORAL W/[place] [address] COMPLETE:08/03/21 09:42 91812 Reason for Exam: METASTATIC DISEASE PELVIS,BONE, LIVER [...] 08/03/21 15:44, Dictation Date: Copy for: 002 [facility] Copy for: 710 MED REC Page 3 of 3 Name Value Range Interpretation Code Description Data Maura rce(s) Supporting Document(s) ID Date Data Source [id number] 08/04/2021 05:33:00 PM EDT [facility] [address] [place] [address] PHONE: [phone] FAX: [phone] Name .................. : JUANITO Daniels Acct Number.................. : [id number] ROOM. ................. : CCU2 MR Number ................... : [id number] Stay type ............. : I/P Discharge Date......... ... : Admit Date ......... : 08/01/21 Admit Phys .................... : KIM VANESSA Date of ....... : 1965 Family Phys ................... : SEQUEIRA Phone .................. : [phone] Age ................................ : 56 Film# .................. .:[id number] Sex ................................. : F Unsigned transcriptions are preliminary reports and do not represent a medical or legal document CT THORAX W/O CONTRAST [id number] COMPLETE:08/03/21 09:43 80917 Reason for Exam: RT RIBCADGE METASTATIC DISEASE PLEURISY LEFT LUNG CT ABD & PELV W/[place] ORAL W/[place] [address] COMPLETE:08/03/21 09:42 38423 Reason for Exam: METASTATIC DISEASE PELVIS,BONE, LIVER [...] No axillary adenopathy. Page 1 of 3 [place] [address] PHONE: [phone] FAX: [phone] Name .................. : JUANITO Daniels Acct Number.................. : [id number] ROOM. ................. : CCU2 Number ................... : [id number] Stay type ............. : I/P Discharge Date......... ... : Admit Date ......... : 08/01/21 Admit Phys .................... : KIM VANESSA Date of ....... : 1965 Family Phys ................... : SEQUEIRA Phone .................. : [phone] Age .......... ...................... : 56 Film# .................. .:[id number] Sex ................................. : F Unsigned transcriptions are preliminary reports and do not represent a medical or legal document CT THORAX W/O CONTRAST [id number] COMPLETE:08/03/21 09:43 [id number] Reason for Exam: RT RIBCADGE METASTATIC DISEASE PLEURISY LEFT LUNG CT ABD & PELV W/[place] ORAL W/[place] [id number] COMPLETE:08/03/21 09:42 85333 Reason for Exam: METASTATIC DISEASE PELVIS,BONE, LIVER [...] adenopathy. No AAA. Page 2 of 3 [place] [address] PHONE: [phone] FAX: [phone] Name .................. : JUANITO Daniels Denyscar Jignesh nesser.................. : [id number] ROOM. ................. : CCU MR Number ................... : [id number] Stay type ............. : I/P Discharge Date......... ... : Admit Date ......... : 08/01/21 Admit Phys .................... : KIM VANESSA Date of ....... : 1965 Family Phys ................... : SEQUEIRA Phone .................. : [phone] Age ................................ : 56 Film# .................. .:[id number] Sex ................................. : F Unsigned transcriptions are preliminary reports and do not represent a medical or legal document CT THORAX W/O CONTRAST 36017 COMPLETE:08/03/21 09:43 12470 Reason for Exam: RT RIBCADGE METASTATIC DISEASE PLEURISY LEFT LUNG CT ABD & PELV W/[place]AL W/[place] [id number] COMPLETE:08/03/21 09:42 75437 Reason for Exam: METASTATIC DISEASE PELVIS,BONE, LIVER [...] 08/03/21 15:44, Dictation Date: Copy for: 002 [facility] Copy for: 710 [facility] REC Page 3 of 3 Name Value Range Interpretation Code Description Data Maura rce(s) Supporting Document(s) ID Date Data Source [id number] 08/04/2021 05:26:00 [place] [address] PHONE: [phone] FAX: [phone] Name .................. : JUANITO Daniels Acct Number.................. : [id number] ROOM. ................. : CCU2 MR Number ................... : [id number] Stay type ............. : O/P Discharge Date......... ... : Admit Date ......... : 08/01/21 Admit Phys .................... : KIM MENDEZ Date of ....... : 1965 Family Phys ................... : REGINE GAIL Phone .................. : [phone] Age ................................ : 56 Film# .................. .:[id number] Sex ................................. : F Unsigned transcriptions are preliminary reports and do not represent a medical or legal document DOPPLER VENOUS BILAT LEG 46202 COMPLETE:08/02/21 11:30 59117 Reason for Exam: blood clots ULTRASOUND BILATERAL [...] MD , 08/04/21 17:26, SCB Transcribe Initials: DZ , Transcribe Date: 08/02/21 21:48, Dictation Date: Copy for: 002 [facility] Copy for: 710 [facility] REC Page 1 of 1 Name Value Range Interpretation Code Description Data Maura rce(s) Supporting Document(s) ID Date Data Source [id number] 08/04/2021 06:31:00 AM EDT [facility] (Osmel Alvarez MD) Name Value Range Interpretation Code Description Data Maura rce(s) Supporting Document(s) Iron [Mass/volume] in Serum or Plasma 29 ug/dL 42-135 Below low normal [facility] (Osmel Alvarez MD) Magnesium [Mass/volume] in Serum or Plasma 1.4 mg/dL 1.7-2.2 [place] w low normal [facility] (Osmel Alvarez MD) ID Date Data Source [id number] 08/04/2021 06:31:00 AM EDT [facility] (Osmel Alvarez [...] >32 mL/min Normal ID Date Data Source [id number] 08/04/2021 06:31:00 AM EDT [facility] (Osmel Alvarez [...] (Osmel Alvarez MD) ID Date Data Source [id number] 08/04/2021 01:55:00 PM EDT [facility] Name Value Range Interpretation Code Description Data Maura rce(s) Supporting Document(s) Iron [Mass/volume] in Serum or Plasma 29 UG/DL 42 - 135 L [facility] ID Date Data Source [id number] 08/04/2021 07:57:00 AM EDT [facility] Name Value Range Interpretation Code Description Data Maura rce(s) Supporting Document(s) Magnesium [Mass/volume] in Serum or Plasma 1.4 MG/DL 1.7 - 2.2 L [facility] ID Date Data Source [id number] 08/04/2021 07:57:00 AM EDT [facility] Name Value Range Interpretation Code Description Data Maura rce(s) Supporting Document(s) COMPREHENSIVE METABOLIC PANEL [facility] COMPREHENSIVE METABOLIC PANEL Sodium [Moles/volume] in Serum or Plasma 138 mEq/L 134 - 153 [facility] Potassium [Moles/volume] in Serum or Plasma 4.1 mEq/L 3.6 - 5.0 [facility] Chloride [Moles/volume] in Serum or Plasma 102 mEq/L 98 - 107 [facility] Carbon dioxide, total [Moles/volume] in Serum or Plasma 27 MEQ/L 22 - 30 [facility] Glucose [Mass/volume] in Serum or Plasma 99 MG/DL 70 - 99 [facility] BUN 18 MG/DL 7 - 21 [facility] al Creatinine [Mass/volume] in Serum or Plasma 1.2 MG/DL 0.7 - 1.5 [facility] BUN/CREAT 15 8 - 27 [facility] Protein [Mass/volume] in Serum or Plasma 5.4 G/DL 6.3 - 8.2 L [facility] Albumin [Mass/volume] in Serum or Plasma 3.3 G/DL 3.9 - 5.0 L [facility] Globulin [Mass/volume] in Serum by calculation 2.1 GM/DL 2.4 - 3.2 L [facility] A/G RATIO 1.6 0.8 - 2.0 [facility] Calcium [Mass/volume] in Serum or Plasma 8.7 MG/DL 8.4 - 10.2 [facility] Bilirubin.total [Mass/volume] in Serum or Plasma <0.7 MG/DL 0.2 - 1.3 [facility] Alkaline phosphatase [Enzymatic activity/volume] in Serum or Plasma 133 U/L 38 - 126 H [facility] Aspartate aminotransferase [Enzymatic activity/volume] in Serum or Plasma 28 U/L 5 - 40 [facility] Alanine aminotransferase [Enzymatic activity/volume] in Seru m or Plasma 23 U/L 7 - 56 [facility] Anion gap 3 in Serum or Plasma 9.0 mmol/L 8.0 - 16.0 [facility]GE 56 [facility] AFR AMER GFR 60 mL/min [facility] Male GFR In [...] >32 mL/min Normal ID Date Data Source [id number] 08/04/2021 07:33:00 AM EDT [facility] Name Value Range Interpretation Code Description Data Maura rce(s) Supporting Document(s) CBC W/AUTOMATED DIFF [facility] COMPLETE BLOOD COUNT Leukocytes [#/volume] in Blood by Automated count 4.8 10^3/uL 4.2 - 1 1.0 [facility] Erythrocytes [#/volume] in Blood by Automated count 2.47 10^6/uL 4. 20 - 5.40 L [facility] Hemoglobin [Mass/volume] in Blood 8.4 g/dL 12.0 - 16.0 L [facility] Hematocrit [Volume Fraction] of Blood by Automated count 25.9 % 3 7.0 - 47.0 L [facility] Erythrocyte mean corpuscular volume [Entitic volume] b y Automated count 104.9 fL 81.0 - 101 H [facility] Erythrocyte mean corpuscular hemoglobin [Entitic mass] by Automated count 34.0 pg 27.0 - 34.0 [facility] Erythrocyte mean corpuscular hemoglobin concentration [Mass/volume] by Automated count 32.4 g/dL 31.0 - 36.0 [facility] Erythrocyte distribution width [Ratio] by Automated count 14.2 % 11.5 - 14.5 [facility] Platelets [#/volume] in Blood by Automated count 92 10^3/uL 150 - 450 L [facility] Platelet mean volume [Entitic volume] in Blood by Automated count 10.6 fL 7.4 - 10.4 H [facility] Neutrophils/100 leukocytes in Blood by Automated count 69.5 % 37. 0 - 80.0 [facility] Lymphocytes/100 leukocytes in Blood by Manual count 7.6 % 25.0 - 40.0 L [facility] Monocytes/100 leukocytes in Blood by Automated count 14.3 % 3.0 - 8.0 H [facility] Eosinophils/100 leukocytes in Blood by Automated count 6.7 % 0.0 - 7.0 [facility] Basophils/100 leukocytes in Blood by Automated count 0.4 % 0.0 - 2.5 [facility] %IG 1.5 % 0.0 - 0.0 H [facility] %NRBC 0.0 % 0.0 - 0.0 [facility] [#/volume] in Blood by Automated count 3.30 10^3/uL 2.00 - 6.90 [facility] Lymphocytes [#/volume] in Blood by Automated count 0.36 10^3/uL 0.60 - 3.40 L [facility] Monocytes [#/volume] in Blood by Automated count 0.68 10^3/uL 0.00 - 0.90 [facility] Eosinophils [#/volume] in Blood by Automated count 0.32 10^3/uL 0.00 - 0.70 [facility] Basophils [#/volume] in Blood by Automated count 0.02 10^3/uL 0.00 - 0.20 [facility] #IG 0.07 10^3/uL 0.00 - 0.10 [facility] ospital #NRBC 0.00 10^3/uL 0.00 - 0.00 [facility] ospital MANUAL DIFF NOT INDICATED [facility] RBC MORPH NOT INDICATED [facility] Ho spital ID Date Data Source [id number] 08/03/2021 05:12:00 AM EDT [facility] (Osmel Alvarez [...] patient fasting? N ID Date Data Source [id number] 08/03/2021 05:12:00 AM EDT [facility] (Osmel Alvarez MD) Name Value Range Interpretation Code Description Data Maura rce(s) Supporting Document(s) Magnesium [Mass/volume] in Serum or Plasma 1.6 mg/dL 1.7-2.2 Belo w low normal [facility] (Osmel Alvarez MD) Is patient fasting? N ID Date Data Source [id number] 08/03/2021 05:12:00 AM EDT [facility] (Osmel Alvarez MD) Name Value Range Interpretation Code Description Data Maura rce(s) Supporting Document(s) Laboratory test finding (navigational concept) Laboratory test result [facility] (Osmel Alvarez MD) Is patient fasting? N Laboratory test finding (navigational concept) 4.1 meq/L 3.6-5.0 [facility] (Osmel Alvarez MD) Is patient fasting? N Laboratory test finding (navigational concept) 137 meq/L 134-153 [facility] (Osmle Alvarez MD) Is patient fasting? [...] patient fasting? N ID Date Data Source [id number] 08/03/2021 07:01:00 AM EDT [facility] Name Value Range Interpretation Code Description Data Maura rce(s) Supporting Document(s) CBC W/AUTOMATED DIFF [facility] COMPLETE BLOOD COUNT Leukocytes [#/volume] in Blood by Automated count 5.5 10^3/uL 4.2 - 1 1.0 [facility] Erythrocytes [#/volume] in Blood by Automated count 2.46 10^6/uL 4. 20 - 5.40 L [facility] Hemoglobin [Mass/volume] in Blood 8.6 g/dL 12.0 - 16.0 L [facility] Hematocrit [Volume Fraction] of Blood by Automated count 25.5 % 3 7.0 - 47.0 L [facility] Erythrocyte mean corpuscular volume [Entitic volume] b y Automated count 103.7 fL 81.0 - 101 H [facility] Erythrocyte mean corpuscular hemoglobin [Entitic mass] by Automated count 35.0 pg 27.0 - 34.0 H [facility] Erythrocyte mean corpuscular hemoglobin concentration [Mass/volume] by Automated count 33.7 g/dL 31.0 - 36.0 [facility] Erythrocyte distribution width [Ratio] by Automated count 14.2 % 11.5 - 14.5 [facility] Platelets [#/volume] in Blood by Automated count 93 10^3/uL 150 - 450 L [facility] Platelet mean volume [Entitic volume] in Blood by Automated count 10.0 fL 7.4 - 10.4 [facility] Neutrophils/100 leukocytes in Blood by Automated count 76.5 % 37. 0 - 80.0 [facility] Lymphocytes/100 leukocytes in Blood by Manual count 5.4 % 25.0 - 40.0 L [facility] Monocytes/100 leukocytes in Blood by Automated count 12.1 % 3.0 - 8.0 H [facility] Eosinophils/100 leukocytes in Blood by Automated count 4.5 % 0.0 - 7.0 [facility] Basophils/100 leukocytes in Blood by Automated count 0.4 % 0.0 - 2.5 [facility] %IG 1.1 % 0.0 - 0.0 H [facility] %NRBC 0.0 % 0.0 - [facility] [#/volume] in Blood by Automated count 4.23 10^3/uL 2.00 - 6.90 [facility] Lymphocytes [#/volume] in Blood by Automated count 0.30 10^3/uL 0.60 - 3.40 L [facility] Monocytes [#/volume] in Blood by Automated count 0.67 10^3/uL 0.00 - 0.90 [facility] Eosinophils [#/volume] in Blood by Automated count 0.25 10^3/uL 0.00 - 0.70 [facility] Basophils [#/volume] in Blood by Automated count 0.02 10^3/uL 0.00 - 0.20 [facility] #IG 0.06 10^3/uL 0.00 - 0.10 [facility] H ospital #NRBC 0.00 10^3/uL 0.00 - 0.00 [facility] ospital MANUAL DIFF SEE BELOW [facility] ital Segmented neutrophils/100 leukocytes in Blood by Manual count 81 % 37 - 80 H [facility] %LYMPH 6 % 25 - 40 L [facility] al %MONO 9 % 3 - 8 H [facility] %EOS 4 % 0 - 7 [facility] RBC MORPH SEE BELOW [facility] Anisocytosis [Presence] in Blood by Light microscopy 1+ SHAUNA L: NONE SEEN A [facility] Macrocytes [Presence] in Blood by Light microscopy 1+ NORMAL: NONE SEEN A [facility] Poikilocytosis [Presence] in Blood by Light microscopy 1+ NOR MAL: NONE SEEN A [facility] { SICKLE CELL (NORMAL: NONE SEEN ) Ovalocytes [Presence] in Blood by Light microscopy 1+ NORMAL: NONE SEEN A [facility] Neutrophils.hypersegmented [Presence] in Blood by Light micr oscopy 2+ NORMAL: NONE SEEN A [facility] Platelet adequacy [Presence] in Blood by Light microscopy DE CREASED NORMAL: NORMAL A [facility] COMMENT: ID Date Data Source [id number] 08/03/2021 06:43:00 AM EDT [facility] Name Value Range Interpretation Code Description Data Maura rce(s) Supporting Document(s) Magnesium [Mass/volume] in Serum or Plasma 1.6 MG/DL 1.7 - 2.2 L [facility] ID Date Data Source [id number] 08/03/2021 06:43:00 AM EDT [facility] Name Value Range Interpretation Code Description Data Maura rce(s) Supporting Document(s) COMPREHENSIVE METABOLIC PANEL [facility] COMPREHENSIVE METABOLIC PANEL Sodium [Moles/volume] in Serum or Plasma 137 mEq/L 134 - 153 [facility] Potassium [Moles/volume] in Serum or Plasma 4.1 mEq/L 3.6 - 5.0 [facility] Chloride [Moles/volume] in Serum or Plasma 99 mEq/L 98 - 107 [facility] Carbon dioxide, total [Moles/volume] in Serum or Plasma 27 MEQ/L 22 - 30 [facility] Glucose [Mass/volume] in Serum or Plasma 102 MG/DL 70 - 99 H [facility] BUN 18 MG/DL 7 - 21 [facility] al Creatinine [Mass/volume] in Serum or Plasma 1.2 MG/DL 0.7 - 1.5 [facility] BUN/CREAT 15 8 - 27 [facility] Protein [Mass/volume] in Serum or Plasma 5.2 G/DL 6.3 - 8.2 L [facility] Albumin [Mass/volume] in Serum or Plasma 3.2 G/DL 3.9 - 5.0 L [facility] Globulin [Mass/volume] in Serum by calculation 2.0 GM/DL 2.4 - 3.2 L [facility] A/G RATIO 1.6 0.8 - 2.0 [facility] Calcium [Mass/volume] in Serum or Plasma 8.6 MG/DL 8.4 - 10.2 [facility] Bilirubin.total [Mass/volume] in Serum or Plasma <0.7 MG/DL 0.2 - 1.3 [facility] Alkaline phosphatase [Enzymatic activity/volume] in Serum or Plasma 105 U/L 38 - 126 [facility] Aspartate aminotransferase [Enzymatic activity/volume] in Serum or Plasma 23 U/L 5 - 40 [facility] Alanine aminotransferase [Enzymatic activity/volume] in Seru m or Plasma 17 U/L 7 - 56 [facility] Anion gap 3 in Serum or Plasma 11.0 mmol/L 8.0 - 16.0 [facility] AGE 56 yrs [facility] al NON-AA GFR 49 mL[facility] AMER GFR 60 mL/min [facility] Male GFR In [...] >32 mL/min Normal ID Date Data Source [id number] 08/01/2021 12:06:00 [place] [address] PHONE: [phone] FAX: [phone] Name .................. : JUANITO Daniels Acct Number.................. : [id number] ROOM. ................. : TR-06 Number ................... : [id number] Stay type ............. : E/R Discharge Date......... ... : Admit Date ......... : 07/05 07/24 Admit Phys .................... : LAVERNE STUBBS Date of ....... : 1965 Family Phys ................... : SEQUEIRA Phone .................. : [phone] Age ................................ : 56 Film# .................. .:[id number] Sex ................................. : F Unsigned transcriptions are preliminary reports and do not represent a medical or legal document CHEST PORTABLE [id number] COMPLETE:08/01/21 07:52 [id number] Reason(s): Chest Pain PORTABLE CHEST SINGLE VIEW [...] By John Ya MD , 08/01/21 12:06, [place] Transcribe Initials: NARESH, Transcribe Date: 08/01/21 08:43, Dictation Date: Copy for: EMERGENCY DEPT via modem Copy for: 710 MED REC Page 1 of 1 Name Value Range Interpretation Code Description Data Maura rce(s) Supporting Document(s) ID Date Data Source [id number] 08/02/2021 06:36:00 AM EDT [facility] (Osmel Alvarez [...] >32 mL/min Normal ID Date Data Source [id number] 08/02/2021 06:36:00 AM EDT [facility] (Osmel Alvarez [...] (Osmel Alvarez MD) ID Date Data Source [id number] 08/02/2021 06:36:00 AM EDT [facility] (Osmel Alvarez [...] (Osmel Alvarez MD) ID Date Data Source [id number] 08/02/2021 06:36:00 AM EDT [facility] (Osmel Alvarez [...] MD ) COMMENT: ID Date Data Source [id number] 08/02/2021 09:48:00 AM EDT [facility] Value Range Interpretation Code Description Data Maura rce(s) Supporting Document(s) Cobalamin (Vitamin B12) [Mass/volume] in Serum or Plasma 346 PG/ML 232 - 1245 [facility] ID Date Data Source [id number] 08/02/2021 09:34:00 AM EDT [facility] Value Range Interpretation Code Description Data Maura rce(s) Supporting Document(s) Iron [Mass/volume] in Serum or Plasma 25 UG/DL 42 - 135 L [facility] ID Date Data Source [id number] 08/02/2021 09:05:00 AM EDT [facility] Value Range Interpretation Code Description Data Maura rce(s) Supporting Document(s) BNP 2923 PG/ML 0 - 125 H [facility] willy ID Date Data Source [id number] 08/02/2021 09:05:00 AM EDT [facility] Name Value Range Interpretation Code Description Data Maura rce(s) Supporting Document(s) COMPREHENSIVE METABOLIC PANEL [facility] COMPREHENSIVE METABOLIC PANEL Sodium [Moles/volume] in Serum or Plasma 136 mEq/L 134 - 153 [facility] Potassium [Moles/volume] in Serum or Plasma 4.4 mEq/L 3.6 - 5.0 [facility] Chloride [Moles/volume] in Serum or Plasma 102 mEq/L 98 - 107 [facility] Carbon dioxide, total [Moles/volume] in Serum or Plasma 30 MEQ/L 22 - 30 [facility] Glucose [Mass/volume] in Serum or Plasma 104 MG/DL 70 - 99 H [facility] BUN 16 MG/DL 7 - 21 [facility] al Creatinine [Mass/volume] in Serum or Plasma 1.2 MG/DL 0.7 - 1.5 [facility] BUN/CREAT 13 8 - 27 [facility] al Protein [Mass/volume] in Serum or Plasma 5.4 G/DL 6.3 - 8.2 L [facility] Albumin [Mass/volume] in Serum or Plasma 3.3 G/DL 3.9 - 5.0 L [facility] Globulin [Mass/volume] in Serum by calculation 2.1 GM/DL 2.4 - 3.2 L [facility] A/G RATIO 1.6 0.8 - 2.0 [facility] Calcium [Mass/volume] in Serum or Plasma 8.5 MG/DL 8.4 - 10.2 [facility] Bilirubin.total [Mass/volume] in Serum or Plasma <0.7 MG/DL 0.2 - 1.3 [facility] Alkaline phosphatase [Enzymatic activity/volume] in Serum or Plasma 101 U/L 38 - 126 [facility] Aspartate aminotransferase [Enzymatic activity/volume] in Serum or Plasma 20 U/L 5 - 40 [facility] Alanine aminotransferase [Enzymatic activity/volume] in Seru m or Plasma 15 U/L 7 - 56 [facility] Anion gap 3 in Serum or Plasma 4.0 mmol/L 8.0 - 16.0 L [facility]GE 56 [facility] mL/min [facility] willy AFR AMER GFR 60 mL/min [facility] Male GFR In [...] >32 mL/min Normal ID Date Data Source [id number] 08/02/2021 08:02:00 AM EDT [facility] Name Value Range Interpretation Code Description Data Maura rce(s) Supporting Document(s) CBC W/AUTOMATED DIFF [facility] COMPLETE BLOOD COUNT Leukocytes [#/volume] in Blood by Automated count 7.7 10^3/uL 4.2 - 1 1.0 [facility] Erythrocytes [#/volume] in Blood by Automated count 2.63 10^6/uL 4. 20 - 5.40 L [facility] Hemoglobin [Mass/volume] in Blood 8.9 g/dL 12.0 - 16.0 L [facility] Hematocrit [Volume Fraction] of Blood by Automated count 28.0 % 3 7.0 - 47.0 L [facility] Erythrocyte mean corpuscular volume [Entitic volume] b y Automated count 106.5 fL 81.0 - 101 H [facility] Erythrocyte mean corpuscular hemoglobin [Entitic mass] by Automated count 33.8 pg 27.0 - 34.0 [facility] Erythrocyte mean corpuscular hemoglobin concentration [Mass/volume] by Automated count 31.8 g/dL 31.0 - 36.0 [facility] Erythrocyte distribution width [Ratio] by Automated count 14.6 % 11.5 - 14.5 H [facility] Platelets [#/volume] in Blood by Automated count 109 10^3/uL 150 - 45 0 L [facility] Platelet mean volume [Entitic volume] in Blood by Automated count 9.8 fL 7.4 - 10.4 [facility] Neutrophils/100 leukocytes in Blood by Automated count 86.2 % 37. 0 - 80.0 H [facility] Lymphocytes/100 leukocytes in Blood by Manual count 3.9 % 25.0 - 40.0 L [facility] Monocytes/100 leukocytes in Blood by Automated count 6.0 % 3.0 - 8.0 [facility] Eosinophils/100 leukocytes in Blood by Automated count 3.0 % 0.0 - 7.0 [facility] Basophils/100 leukocytes in Blood by Automated count 0.4 % 0.0 - 2.5 [facility] %IG 0.5 % 0.0 - 0.0 H [facility] %NRBC 0.0 % 0.0 - 0.0 [facility] al Neutrophils [#/volume] in Blood by Automated count 6.62 10^3/uL 2.00 - 6.90 [facility] Lymphocytes [#/volume] in Blood by Automated count 0.30 10^3/uL 0.60 - 3.40 L [facility] Monocytes [#/volume] in Blood by Automated count 0.46 10^3/uL 0.00 - 0.90 [facility] Eosinophils [#/volume] in Blood by Automated count 0.23 10^3/uL 0.00 - 0.70 [facility] Basophils [#/volume] in Blood by Automated count 0.03 10^3/uL 0.00 - 0.20 [facility] #IG 0.04 10^3/uL 0.00 - 0.10 [facility] ospital #NRBC 0.00 10^3/uL 0.00 - 0.00 [facility] ospital MANUAL DIFF SEE BELOW [facility] ital Segmented neutrophils/100 leukocytes in Blood by Manual count 84 % 37 - 80 H [facility] %LYMPH 6 % 25 - 40 L [facility] al %MONO 3 % 3 - 8 [facility] al %EOS 7 % 0 - 7 [facility] al RBC MORPH SEE BELOW [facility] al Anisocytosis [Presence] in Blood by Light microscopy 2+ SHAUNA L: NONE SEEN A [facility] HYPO 1+ NORMAL: NONE SEEN A [facility] { SICKLE CELL (NORMAL: NONE SEEN ) Platelet adequacy [Presence] in Blood by Light microscopy DE CREASED NORMAL: NORMAL A [facility] COMMENT: ID Date Data Source [id number] 08/02/2021 07:58:00 AM EDT [facility] Name Value Range Interpretation Code Description Data Maura rce(s) Supporting Document(s) Magnesium [Mass/volume] in Serum or Plasma 1.7 MG/DL 1.7 - 2.2 [facility] ID Date Data Source [id number] 08/02/2021 07:28:00 AM EDT [facility] Name Value Range Interpretation Code Description Data Maura rce(s) Supporting Document(s) Lactate [Moles/volume] in Serum or Plasma 0.7 MMOL/L 0.2 - 2.2 [facility] ID Date Data Source [id number] 08/02/2021 07:03:00 AM EDT [facility] Name Value Range Interpretation Code Description Data Maura rce(s) Supporting Document(s) Fibrin D-dimer FEU [Mass/volume] in Platelet poor plasma 3.59 ug /mL 0.27 - 0.50 H [facility] ID Date Data Source [id number] 08/01/2021 06:43:00 AM EDT [facility] 1 OrderSheet [facility] Emergency Department [address] [place] [address] Phone #: ext- [phone] 08/01/2021 06:43 [id number] Sex: F : 1965 Age: 56yWEIGHT:74.8 kg (S) HEIGHT:60 inches (S) BMI:32.2ALLERGIES: Penicillins, SeafoodCHIEF COMPLAINT: chest discomfort, palpitationsDIAGNOSIS: Atrial fibrillation, Pulmonary embolismLAB ORDERSOrder Description Priority Entered Acknowledged InitialedCB w Diff STAT 07:52 08/01/2021 07:56 Maria T Garcia RN, M.D.;CMP STAT 07:52 08/01/2021 07:56 Maria T Garcia RN, M.D.;Troponin-T STAT 07:52 08/01/2021 07:56 Maria T Garcia RN, M.D.;BNP STAT 07:52 08/01/2021 07:56 Maria T Garcia RN, M.D.;TSH STAT 07:52 08/01/2021 07:56 Maria T Garcia RN, M.D.;Lipase STAT 07:52 08/01/2021 07:56 Maria T Garcia RN, M.D.;DIAGNOSTIC STUDY ORDERSOrder Description Priority Entered [facility]ged [facility] STAT 07:52 08/01/2021 Ack'd: 08:00 08:06 Tyrell (Oxygen? Maria T Galloway Amber Hagenston RN(Yes)) Leida; R.N. Reason for Study: Chest PainCT CTA CHEST STAT 08:52 08/01/2021 09:14 Chata(NONCOR) Maria T Jones RNINC PP Leida;(Oxygen?(No))(IV?(Yes)) 2 OrderSheet [facility] Emergency Department [address] [place] [address] Phone #: ext- [phone] 08/01/2021 06:43 Patient: CHANTALE SOLOMON Sex: F : 1965 Age: 56y Reason for Study: chest pain, a. fib. hx of PEMEDICATION/IV/DRIP/FLUID ORDERSOrder Description Priority Entered Acknowledged InitialedAspirin PO 07:52 08/01/2021 07:59 DorisChewable 81 mg Maria T Galloway RN162 mg (NOW) Leida;diltiaZEM Drip IV : 5 10:13 08/01/2021 10:21 Matthewt Jordynmg/hr (Add 125 mg [place]un Barrera R.N.(25 mL) to 100 mL RN; Written orderNS to get 125 per ( Dr Mahajan/125 mL (1 admissionmg/mL)) orderOrders per Oral Surgery Physician: ); Maria T Galloway M.D.GENERAL ORDERSOrder Description Priority Entered Acknowledged InitialedBlood Pressure 07:52 08/01/2021 07:55 DorisMonitor Maria T Galloway RN, M.D.;Medical Writer 07:52 08/01/2021 07:55 Chata(continuous) Maria T Galloway [...] Maria T Galloway RN, M.D.; 3 OrderSheet [facility] Emergency Department [address] [place] [address] Phone #: ext- [phone] 08/01/2021 06:43 Patient: [...] (12:21 08/01/2021)][Electronically locked by Niru Whitlock R.N. (:08/01/2021)] Name Value Range Interpretation Code Description Data Maura rce(s) Supporting Document(s) ID Date Data Source [id number] 08/01/2021 06:43:00 AM EDT [facility] 1 Medication Reconciliation Report [facility] Emergency Department [address] [place] [address] Phone #: ext- [phone] 08/01/2021 06:43 Patient: [...] Home Medication information: 2 Medication Reconciliation Report [facility] Emergency Department [address] [place] [address] Phone #: ext- [phone] 08/01/2021 06:43 Patient: CHANTALE SOLOMON Sex: F : 1965 Age: 56yNot obtained.The following Medications were given to the patient in the Emergency Department:ASPIRIN CHEWABLE 81 MG [PO] PO 162 mg, administered: :59 1Diltiazem [IV Drip] Drip IV bolus 0, then 125 mg 5 mg/hr, administered: 10:00 08/01/2021The following Medications were prescribed to the patient:None. Name Value Range Interpretation Code Description Data Maura rce(s) Supporting Document(s) ID Date Data Source [id number] 08/01/2021 06:43:00 AM EDT [facility] 1 Medication Administration Record [facility] Emergency Department [address] [place] [address] Phone #: ext- [phone] 08/01/2021 06:43 Patient: CHANTALE SOLOMON Sex: F : 1965 Age: 56yWeight: 74.8 kgHeight/Length: 60 inBMI: 32.2ALLERGIES: Penicillins, Seafood Date/Time Medication Administered Medication OrderedGiven ASPIRIN CHEWABLE 81 MG [PO] Aspirin PO Chewable 81 mg 78353:59 08/01/2021 Dose: 162 mg Tablets PO mg (NOW)CHENTE Salesta DILTIAZEM [IV DRIP] diltiaZEM Drip IV : 5 mg/hr (Add10:00 08/01/2021 Dose: 125 mg Drip IV 125 mg (25 mL) to 100 mL NS Niru Brandon RMikel Rate: 5 mg/hr get 125 mg/125 mL (1 mg/mL))---- Dispensed: 125 mL bagContinued Upon A dmission Site: #1 left :10 08/01/2021Niru Whitlock RMikel Name Value Range Interpretation Code Description Data Maura rce(s) Supporting Document(s) ID Date Data Source [id number] 08/01/2021 06:43:00 AM EDT [facility] 1 General Instructions [facility] Emergency Department [address] [place] [address] Phone #: ext- [phone] 08/01/2021 06:43 Patient: CHANTALE SOLOMON Sex: F : 1965 Age: 56yChronic, paroxysmal atrial fibrillation with controlled rate.Previous pulmonary embolism. No acute cor pulmonale.(Electronically signed by Maria T Galloway M.D. 08/01/2021 12:21) Name Value Range Interpretation Code Description Data Maura rce(s) Supporting Document(s) ID Date Data Source [id number] 08/01/2021 06:43:00 AM EDT [facility] 1 Clinical Report - Nurses [facility] Emergency Department [address] [place] [address] Phone #: [phone]- [phone] 08/01/2021 06:43 Patient: CHANTALE SOLOMON Sex: F : 1965 Age: 56yTRIAGEArrived by private vehicle. Historian: patient. ( PER PT HERE FOR A -FIB PT C/O PAIN RIGHTBREAST AREA).Acuity: LEVEL 3.Chief Complaint: CHEST PAIN.This started just prior to arrival. She has had difficulty breathing. No sweating episodes, nausea,vomiting, fever or cough.Treatment DRAMATIC READER:None. --06:51 08/01/21 Naima Jade R.N.06:47 08/01/21. BP: 113/62. MAP: 79. HR: 122. RR: 16. O2 saturation: 99% on room air. Temp: 97.3 F.Pain level now: 04/12. --06:51 9/29/21 Naima Jade R.N.Weight: 74.8 kg stated. Height/Length: [...] Jade R.N.PROBLEMS: 2 Clinical Report - Nurses [facility] Emergency Department [address] [place] [address] Phone #: ext- [phone] 08/01/2021 06:43 Patient: [...] R.N.11:10 08/01/21. 3 Clinical Report - Nurses [facility] Emergency Department [address] [place] [address] Phone #: ext- [phone] 08/01/2021 06:43 Patient: CHANTALE SOLOMON Sex: F : 1965 Age: 56y FALL RISK ASSESSMENT: Fall risk assessment completed. Risk factors identified include weakness and patient medications. Fall interventions initiat ed. Patient placed on stretcher. Side rails up x2. Bed in low position. Brakes on. Patient visible from nurses' station. Call light in reach of patient. --11:25 08/01/21 Niru Whitlock R.N. Interventions Identification band on patient. --06:51 [...] care for this patient has been created. hospital monitor placed on patient. Patient gowned.Head of bed [...] Barrera RN 4 Clinical Report - Nurses [facility] Emergency Department [address] [place] [address] Phone #: ext- [phone] 08/01/2021 06:43 Patient: [...] RR: 20. O2 saturation: 100%. 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 BP: 99/66. MAP: 77. HR: 101. RR: 16. O2 saturation: 100%. --09:32 08/01/21 Critical access hospital Florian Del Rosario ER Tech1 09:34 08/01/21. Patient transported to [place] by wheelchair with mask and debug technician. --09:34 08/01/21 Chata Barrera RN 10:08 08/01/21. [...] Niru Whitlock R.N. 11:08/01/21. Departure time: 11:08/01/2021. [place] Coma Scale: 15- eyes open- spontaneous (4); best verbal response- oriented (5); best motor response- obeys commands (6). Condition at departure: stable. Disposition: observation in the Acute Inpatient Unit, Monitored for further evaluation and cardiac 5 Clinical Report - Nurses [facility] Emergency Department [address] [place] [address] Phone #: ext- [phone] 08/01/2021 06:43 [id number] Sex[facility] F : 1965 Age: 56y monitoring. 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 2 Clinical Report - Physicians/Mid [facility] Emergency Department [address] [place] [address] Phone #: ext- [phone] 08/01/2021 06:43 Patient: CHANTALE SOLOMON [facility]#: [id number] Sex: F : 1965 Age: 56y Additional [...] supple. 3 Clinical Report - Physicians/Mid Levels [facility] Emergency Department [address] [place] [address] Phone #: ext- [phone] 08/01/2021 06:43 [id number] Sex: F : 1965 Age: 56y CVS: [...] 0.00) 4 Clinical Report - Physicians/Mid Levels [facility] Emergency Department [address] [place] [address] Phone #: ext- [phone] 08/01/2021 06:43 Patient: CHANTALE SOLOMON [facility]#: [id number] Sex: F : 1965 Age: 56y MANUAL [...] Male GFR Interprentation 20-49 yrs >60 mL/min Xhwgce71-62 yrs >56 mL/min Normal 60-69 yrs >49 mL/min Normal 70-79yrs>42 mL/min Normal 80 and above >35 mL/min Normal Female GFRInterpretation 20-39 yrs >60 mL/min Normal 40-49 yrs >58 mL/minNormal 50-59 yrs >51 mL/min Normal 60-69 yrs >45 mL/min Txrxuf05-09 yrs >39 mL/min Normal 80 and above [...] 125) 5 Clinical Report - Physicians/Mid Levels [facility] Emergency Department [address] [place] [address] Phone #: ext- [phone] 08/01/2021 06:43 Patient: CHANTALE SOLOMON Sex: F : 1965 Age: 56yTSH: (SARAH: 08/01/2021 08:01) ( MsgRcvd 08/01/2021 08:45) Final results Test Result Flag Units (Reference) TSH 1.25 uIU/mL (0.47 - 5.01)Lipase: (SARAH: 08/01/2021 08:01) ( [facility] 08/01/2021 08:32) Final results Test Result Flag Units (Reference) LIPASE 18 U/L (13 - 60)Chest Portable 1 View: (SARAH: 08/01/2021 07:52) ( [facility] 08/01/2021 08:43) In [place] [address] PHONE: [phone] FAX: [phone] Name .................. : JUANITO Daniels Acct Number.................. : [id number] ROOM. ................. : TR06 Number ................... : [id number] Stay type ............. : E/R Discharge Date......... ... : Admit Date ......... : 08/01/21 Admit Phys .................... : LAVERNE STUBBS Date of ....... : 1965 Family Phys ................... : SEQUEIRA Phone .................. : [phone] Age ................................ : 56 Film# .................. .:[id number] Sex ................................. : F Unsigned transcriptions are preliminary reports and do not represent a medical or legal document CHEST PORTABLE [id number] COMPLETE:08/01/21 07:52 [id number] Reason(s): Chest Pain PORTABLE CHEST SINGLE VIEW [...] unchanged. Electronically Reviewed and Signed By DCTRENEE SIGNLOUIS MENDOZA Transcribe Initials: NARESH, Transcribe Date: 08/01/21 08:43, Dictation Date: 6 Clinical Report - Physicians/Mid Levels [facility] Emergency Department [address] [place] [address] Phone #: ext- [phone] 08/01/2021 06:43 Patient: CHANTALE SOLOMON Sex: F [...] 08/01/2021 12:21) 7Clinical Report - Physicians/Mid Levels [facility] Emergency Department [address] [place] [address] Phone #: ext- [phone] 08/01/2021 06:43 Patient: CHANTALE SOLOMON Sex: F : 1965 Age: 56y Name Value Range Interpretation Code Description Data Maura rce(s) Supporting Document(s) ID Date Data Source [id number] 08/01/2021 12:09:00 PM EDT [facility] [address] [place] [address] PHONE: [phone] FAX: [phone] Name .................. : JUANITO Daniels Acct Number.................. : [id number] ROOM. ................. : CCU2 MR Number ................... : [id number] Stay type ............. : O/P Discharge Date......... ... : Admit Date ......... : 07/05 07/24 Admit Phys .................... : KIM VANESSA Date of ....... : 1965 Family Phys ................... : SEQUEIRA Phone .................. : [phone] Age ................................ : 56 Film# .................. .:[id number] Sex ................................. : F Unsigned transcriptions are preliminary reports and do not represent a medical or legal document CT CTA CHEST NON-CORONARY Luciana Stoddard 55361 COMPLETE:08/01/21 09:59 FILOMENA 39913 Reason(s): chest pain, a. fib. hx of [...] pedicle hooks T4-T11. Page 1 of 2 [place] [address] PHONE: [phone] FAX: [phone] Name .................. : JUANITO Daniels Acct Number.................. : [id number] ROOM. ................. : CCU2 Number ................... : [id number] Stay type ............. : O/P Discharge Date......... ... : Admit Date ......... : 08/01/21 Admit Phys .................... : KIM VANESSA Date of ....... : 1965 Family Phys ................... : SEQUEIRA Phone .................. : [phone] Age ................................ : 56 Film# .................. .:[id number] Sex ................................. : F Unsigned transcriptions are preliminary reports and do not represent a medical or legal document CT CTA CHEST NON-CORONARY W C 73359 COMPLETE:08/01/21 09:59 FILOMENA 63835 Reason(s): chest pain, a. fib. hx of [...] rce(s) Supporting Document(s) ID Date Data Source [id number] 08/01/2021 08:54:00 AM EDT [facility] Name Value Range Interpretation Code Description Data Maura rce(s) Supporting Document(s) CBC W/AUTOMATED DIFF [facility] COMPLETE BLOOD COUNT Leukocytes [#/volume] in Blood by Automated count 10.8 10^3/uL 4.2 - 11.0 [facility] Erythrocytes [#/volume] in Blood by Automated count 2.69 10^6/uL 4. 20 - 5.40 L [facility] Hemoglobin [Mass/volume] in Blood 9.3 g/dL 12.0 - 16.0 L [facility] Hematocrit [Volume Fraction] of Blood by Automated count 28.7 % 3 7.0 - 47.0 L [facility] Erythrocyte mean corpuscular volume [Entitic volume] b y Automated count 106.7 fL 81.0 - 101 H [facility] Erythrocyte mean corpuscular hemoglobin [Entitic mass] by Automated count 34.6 pg 27.0 - 34.0 H [facility] Erythrocyte mean corpuscular hemoglobin concentration [Mass/volume] by Automated count 32.4 g/dL 31.0 - 36.0 [facility] Erythrocyte distribution width [Ratio] by Automated count 14.6 % 11.5 - 14.5 H [facility] Platelets [#/volume] in Blood by Automated count 135 10^3/uL 150 - 45 0 L [facility] Platelet mean volume [Entitic volume] in Blood by Automated count 9.6 fL 7.4 - 10.4 [facility] Neutrophils/100 leukocytes in Blood by Automated count 91.4 % 37. 0 - 80.0 H [facility] Lymphocytes/100 leukocytes in Blood by Manual count 2.9 % 25.0 - 40.0 L [facility] Monocytes/100 leukocytes in Blood by Automated count 2.2 % 3.0 - 8.0 L [facility] Eosinophils/100 leukocytes in Blood by Automated count 2.5 % 0.0 - 7.0 [facility] Basophils/100 leukocytes in Blood by Automated count 0.4 % 0.0 - 2.5 [facility] %IG 0.6 % 0.0 - 0.0 [facility] %NRBC 0.0 % 0.0 - 0.0 [facility] al Neutrophils [#/volume] in Blood by Automated count 9.90 10^3/uL 2.00 - 6.90 H [facility] Lymphocytes [#/volume] in Blood by Automated count 0.31 10^3/uL 0.60 - 3.40 L [facility] Monocytes [#/volume] in Blood by Automated count 0.24 10^3/uL 0.00 - 0.90 [facility] Eosinophils [#/volume] in Blood by Automated count 0.27 10^3/uL 0.00 - 0.70 [facility] Basophils [#/volume] in Blood by Automated count 0.04 10^3/uL 0.00 - 0.20 [facility] #IG 0.06 10^3/uL 0.00 - 0.10 [facility] H ospital #NRBC 0.00 10^3/uL 0.00 - 0.00 [facility] ospital MANUAL DIFF SEE BELOW [facility] ital Segmented neutrophils/100 leukocytes in Blood by Manual count 97 % 37 - 80 H [facility] %LYMPH 2 % 25 - 40 L [facility] Hospit al %MONO 1 % 3 - 8 L [facility] al RBC MORPH SEE BELOW [facility] Anisocytosis [Presence] in Blood by Light microscopy 1+ SHAUNA L: NONE SEEN A [facility] Macrocytes [Presence] in Blood by Light microscopy 1+ NORMAL: NONE SEEN A [facility] HYPO 1+ NORMAL: NONE SEEN A [facility] { SICKLE CELL (NORMAL: NONE SEEN ) Platelet adequacy [Presence] in Blood by Light microscopy NORMAL NORMAL: NORMAL [facility] COMMENT: ID Date Data Source [id number] 08/01/2021 08:50:00 AM EDT [facility] Name Value Range Interpretation Code Description Data Maura rce(s) Supporting Document(s) BNP 2271 PG/ML 0 - 125 H [facility] willy ID Date Data Source [id number] 08/01/2021 08:50:00 AM EDT [facility] Name Value Range Interpretation Code Description Data Maura rce(s) Supporting Document(s) TROPONIN T 0.02 NG/ML 0.00 - 0.10 [facility] spital TROPONIN T0.1 ng/ml Recommended as the c linical threshold value forTroponin T. ID Date Data Source [id number] 08/01/2021 08:45:00 AM EDT [facility] Value Range Interpretation Code Description Data Maura rce(s) Supporting Document(s) Thyrotropin [Units/volume] in Serum or Plasma by Detec tion limit <= 0.05 mIU/L 1.25 uIU/mL 0.47 - 5.01 [facility] ID Date Data Source [id number] 08/01/2021 08:33:00 AM EDT [facility] Value Range Interpretation Code Description Data Maura rce(s) Supporting Document(s) COMPREHENSIVE METABOLIC PANEL [facility] COMPREHENSIVE METABOLIC PANEL Sodium [Moles/volume] in Serum or Plasma 138 mEq/L 134 - 153 [facility] Potassium [Moles/volume] in Serum or Plasma 4.6 mEq/L 3.6 - 5.0 [facility] Chloride [Moles/volume] in Serum or Plasma 103 mEq/L 98 - 107 [facility] Carbon dioxide, total [Moles/volume] in Serum or Plasma 27 MEQ/L 22 - 30 [facility] Glucose [Mass/volume] in Serum or Plasma 110 MG/DL 70 - 99 H [facility] BUN 16 MG/DL 7 - 21 [facility] Creatinine [Mass/volume] in Serum or Plasma 1.1 MG/DL 0.7 - 1.5 [facility] BUN/CREAT 15 8 - 27 [facility] al Protein [Mass/volume] in Serum or Plasma 6.0 G/DL 6.3 - 8.2 L [facility] Albumin [Mass/volume] in Serum or Plasma 3.4 G/DL 3.9 - 5.0 L [facility] Globulin [Mass/volume] in Serum by calculation 2.6 GM/DL 2.4 - 3.2 [facility] A/G RATIO 1.3 0.8 - 2.0 [facility] Calcium [Mass/volume] in Serum or Plasma 8.8 MG/DL 8.4 - 10.2 [facility] Bilirubin.total [Mass/volume] in Serum or Plasma <0.7 MG/DL 0.2 - 1.3 [facility] Alkaline phosphatase [Enzymatic activity/volume] in Serum or Plasma 92 U/L 38 - 126 [facility] Aspartate aminotransferase [Enzymatic activity/volume] in Serum or Plasma 18 U/L 5 - 40 [facility] Alanine aminotransferase [Enzymatic activity/volume] in Seru m or Plasma 13 U/L 7 - 56 [facility] Anion gap 3 in Serum or Plasma 8.0 mmol/L 8.0 - 16.0 [facility] AGE 56 yrs [facility] NON-AA GFR 55 mL/min [facility] willy AFR AMER GFR >60 mL/min [facility] Ho spital Male GFR In [...] >32 mL/min Normal ID Date Data Source [id number] 08/01/2021 08:32:00 AM EDT [facility] Name Value Range Interpretation Code Description Data Maura rce(s) Supporting Document(s) Lipase [Enzymatic activity/volume] in Serum or Plasma 18 U/L 13 - 60 [facility] ID Date Data Source [id number] 07/31/2021 10:19:00 [place] [address] RESPIRATORY CARE REPORT ==== ---------NAME------- NUMBER SEX AGE ADMIT DISC. XRAY# F/C OSMANISUREKHAIVÁNJUSTYN Daniels [id number] F 56 07/31/21 07/31/21 [id number] BBF E/R DATE OF : 1965 M/R# [id number] PH#: [phone] LOCATION: EMERGENCY DEPT EKG 88899 COMPLE TE:07/31/21 13:13 CLC 64481 EKG 06336 COMPLETE:07/31/21 13:13 CLC 73979 PHYSICIAN: BRENDA Stoddard Name Value Range Interpretation Code Description Data Maura rce(s) Supporting Document(s) ID Date Data Source [id number] 07/31/2021 03:32:00 [place] [address] PHONE: [phone] FAX: [phone] Name .................. : JUANITO KYLEKULDIP Daniels Acct Number.................. : [id number] ROOM. ................. : Number ................... : [id number] Stay type ............. : E/R Discharge Date......... ... : Admit Date ......... : 07/05 06/23 Admit Phys .................... : BRENDA Stoddard Date of ....... : 1965 Family Phys ................... : SEQUEIRA Phone .................. : [phone] Age ................................ : 56 Film# .................. .:[id number] Sex ................................. : F Unsigned transcriptions are preliminary reports and do not represent a medical or legal document CHEST PORTABLE 72091 COMPLETE:07/31/21 10:30 KBO 33796 Reason(s): Shortness of Breath PORTABLE CHEST SINGLE [...] abnormality is noted. Page 1 of 2 [place] [address] PHONE: [phone] FAX: Name .................. : JUANITO Daniels Acct Number.................. : [id number] ROOM. ................. : VT-06 MR Number ................... : [id number] Stay type ............. : E/R Discharge Date......... ... : Admit Date ......... : 07/31/21 Admit Phys .................... : BRENDA Stoddard Date of ....... : 1965 Family Phys ................... : SEQUEIRA Phone .................. : [phone] Age ................................ : 56 Film# .................. .:[id number] Sex ................................. : F Unsigned transcriptions are preliminary reports and do not represent a medical or legal document CHEST PORTABLE 55864 COMPLETE:07/31/21 10:30 KBO 01295 Reason(s): Shortness of Breath Electronically Reviewed and Signed By Doyle Leblanc MD , 07/31/21 15:32, SCB Transcribe Initials: SSR, Transcribe Date: 07/31/21 10:53, Dictation Date: Copy for: EMERGENCY DEPT via modem Copy for: 710 MED REC DISCHARGED Page 2 of 2 Name Value Range Interpretation Code Description Data Maura rce(s) Supporting Document(s) ID Date Data Source [id number] 07/31/2021 09:35:00 AM EDT [facility] 1 OrderSheet [facility] Emergency Department [address] [place] [address] Phone #: ext - [phone] 07/31/2021 09:34 Patient: CHANTALE SOLOOMN Sex: F : 1965 Age: 56yWEIGHT:74.8 kg (S) HEIGHT:60 inches (S) BMI:32.2ALLERGIES: Penicillins, SeafoodCHIEF COMPLAINT: palpitations, chest discomfortDIAGNOSIS: Anemia, Atrial fibrillationLAB ORDERSOrder Description Priority Entered Acknowledged InitialedBMP STAT 10:05 07/31/2021 10:09 Rory Cadet ; Vaughn FLORESCBC w Diff STAT 10:07/31/2021 10:09 Rory Cadet RNMagnesium STAT 10:07/31/2021 10:09 Rory Cadet RNTroponin-T STAT 10:05 07/31/2021 10:09 Rory Cadet ; Vaughn FLORESDIAGNOSTIC STUDY ORDERSOrder Description Priority Entered Acknowledged InitialedChest Portable 1 STAT 10:07/31/2021 10:09 Nataliyaiew (Oxygen? Rory Gomez ; Vaughn RN(Yes)) Reason for Study: Shortness of BreathMEDICATION/IV/DRIP/FLUID ORDERSOrder Description Priority Entered Acknowledged InitialedLopressor IVP 5 mg 10:05 07/31/2021 10:31 Yandel(NOW x1, HIGH Rory Gomez RNALERTMEDICATION)NS IV 1000 mL 10:05 07/31/2021 10:32 TerryBolus: : Bolus 1000 Rory Gomez RNmL (X1)GENERAL ORDERSOrder Description Priority Entered Acknowledged InitialedEKG 10:05 07/31/2021 10:09 Rory Cadet ; Vaughn RNEKG 10:57 07/31/2021 11:07 Adolfo ED 2 OrderSheet [facility] Emergency Department [address] [place] [address] Phone #: ext- [phone] 07/31/2021 09:34 Patient: CHANTALE SOLOMON Sex: F : 1965 Age: 56y Rory Gomez ; Nicky Del Rosario Tech1[Electronically signed by Yandel Mendes RN (13:30 07/31/2021)][Electronically signed by Rory Gomez (15:07 07/31/2021)][Electronically locked by Yandel Mendes RN (13:30 07/31/2021)] Name Value Range Interpretation Code Description Data Maura rce(s) Supporting Document(s) ID Date Data Source [id number] 07/31/2021 09:35:00 AM EDT [facility] 1 Medication Reconciliation Report [facility] Emergency Department [address] [place] [address] Phone #: ext- [phone] 07/31/2021 09:34 Patient: CHANTALE SOLOMON Sex: F [...] Home Medication information: 2 Medication Reconciliation Report [facility] Emergency Department [address] [place] [address] Phone #: ext- [phone] 07/31/2021 09:34 Patient: [...] rce(s) Supporting Document(s) ID Date Data Source [id number] 07/31/2021 09:35:00 AM EDT [facility] 1 Medication Administration Record [facility] Emergency Department [address] [place] [address] Phone #: ext- [phone] 07/31/2021 09:34 Patient: CHANTALE SOLOMON Sex: F : 1965 Age: 56yWeight: 74.8 kgHeight/Length: 60 inBMI: 32.2ALLERGIES: Penicillins, Seafood Date/Time Medication Administered Medication OrderedGiven LOPRESSOR [IVP] (METOPROLOL Lopressor IVP 5 mg (NOW x1,10:22 07/31/2021 TARTRATE) HIGH ALERT MEDICATION)Yandel Mendes RN Dose: 5 mg IVP Site: #1 MidlineStart NS [IV] NS IV 1000 mL Bolus: : Bolus [id number] 07/31/2021 Dose: IV Fluids mL (X1)Yandel Mendes RN Bolus: 1000 mL over 40 minute(s)---- Dispensed: 1000 mL bagStop Site: #1 [id number]:11 07/31/2021Terry MARK Mendes Name Value Range Interpretation Code Description Data Maura rce(s) Supporting Document(s) ID Date Data Source [id number] 07/31/2021 09:35:00 AM EDT [facility] 1 General Instructions [facility] Emergency Department [address] [place] [address] Phone #: ext- [phone] 07/31/2021 09:34 Patient: [...] patient.Follow-up with: Osmel Alvarez MD, Cardiology, , [address] [place] [address], [facility] Follow up in two days if not better. Call for an appointment. Reason for referral: evaluation. ADDITIONAL INFORMATIONAtrial Fibrillation 2 General Instructions [facility] Emergency Department [address] [place] [address] Phone #: ext- [phone] 07/31/2021 09:34 Patient: [...] a couple ofdays. 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 4 General Instructions [facility] Emergency Department [address] [place] [address] Phone #: ext- [phone] 07/31/2021 09:34 Patient: [...] vision Extreme drowsiness, confusion, dizziness, or fainting 2018-2181 [employer]. [address] [place] [address]. All rights reserved. This information is not intended as asubstitute for professional medical care. Always follow your healthcare professional's instructions.Anemia, Type Not Specified (Adult) 5 General Instructions [facility] Emergency Department [address] [place] [address] Phone #: ext- [phone] 07/31/2021 09:34 Patient: [...] own healthcare provider to get the results.Call [address] [place] [address] or get immediate medical care if any of the following occur: Shortness of breath or chest pain Dizziness or fainting gets worse Vomiting blood or passing red or black-colored stool [id number] [employer]. [address] [place] [address], [place] [address]. All rights reserved. This information is not intended as a 6 General Instructions [facility] Emergency Department [address] [place] [address] Phone #: ext- [phone] 07/31/2021 09:34 Patient: CHANTALE SOLOMON Sex: F : 1965 Age: 56ysubstitute for professional medical care. Always follow your healthcare professional's instructions. You have been given the following additional information: Atrial Fibrillation Anemia, Type Not Specified (Adult)(Electronically signed by Rory Gomez 07/31/2021 15:07) Name Value Range Interpretation Code Description Data Maura rce(s) Supporting Document(s) ID Date Data Source [id number] 07/31/2021 09:35:00 AM EDT [facility] 1 Clinical Report - Nurses [facility] Emergency Department [address] [place] [address] Phone #: ext [phone] 07/31/2021 09:34 Patient: CHANTALE SOLOMON Sex: F [...] No sweating episodes, nausea, vomiting, fever orcough.Treatment DRAMATIC READER:None. --09:52 07/31/21 Yandel Mendes, MARK09:44 07/31/21. BP: 110/74 (regular adult cuff) taken [...] Mendes RN.AllergiesPenicillins. 2 Clinical Report - Nurses [facility] Emergency Department [address] [place] [address] Phone #: ext- [phone] 07/31/2021 09:34 Patient: [...] liters. 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 O2 saturation: 100%. --11:08 07/31/21 [facility] C[facility] time: (10:58 07/31/2021). EKG was performed by a tech and shown to the ED physician. --11: [facility] Nicky Del Rosario Fnxp057:11 07/31/2021 Lopressor IVP Response: symptoms have improved the patient feels better. --11: Yandel Mendes RN11:11 07/31/2021 IV Fluids NS via IV site #1 Discontinued: bag #1 infused. Total amount infused: 1000 mL.--11:11 07/31/21 Yandel Mendes RN( 1055 C M in nsr M D notified and EKG repeated). --11:12 07/31/21 Yandel Mendes RN11:34 07/31/21. BP: 103/52. HR: 84. RR: 18. O2 saturation: 100%. --11:34 07/31/21 [facility]AB[facility] Hngn979:45 07/31/2021 Site #1 removed upon discharge. Catheter intact. Bandaid applied (infusa port flushedwith hep lock 300 units). --12:08 07/31/21 Yandel Mendes RN. 4 Clinical Report - Nurses [facility] Emergency Department [address] [place] [address] Phone #: ext- [phone] 07/31/2021 09:34 Patient: CHANTALE SOLOMON Sex: F : 1965 Age: 56yDISPOSITION / DISCHARGE 11:47 07/31/21. BP: 104/78. HR: 84. RR: 16. O2 saturation: 100%. Temp: 98.6 F. Pain level now 03/12. 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 Departure time: 11:50 07/31/2021. Condition at departure: improved. Reviewed medication(s) (no changes). 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 Patient verbalized understanding. Written instructions provided in Estonian. The patient was discharged by the physician. She was discharged home. She left ambulatory and via private vehicle. Patient driving. --12:09 07/31/21 Yandel Mendes RN.Locked/Released at 07/31/2021 13:30 by Yandel Mendes RN Name Value Range Interpretation Code Description Data Maura rce(s) Supporting Document(s) ID Date Data Source [id number] 07/31/2021 09:35:00 AM EDT [facility] 1 Clinical Report - Physicians/Mid Levels [facility] Emergency Department [address] [place] [address] Phone #: ext- [phone] 07/31/2021 09:34 Patient: CHANTALE SOLOMON Sex: F [...] Ligation. 2 Clinical Report - Physicians/Mid Levels [facility] Emergency Department [address] [place] [address] Phone #: ext- [phone] 07/31/2021 09:34 [id number] Sex: F : 1965 Age: 56y Medications: [...] No sensory deficit. 3 Clinical Report - Physicians/[facility] [facility] [address] [place] [address] Phone #: ext- [phone] 07/31/2021 09:34 Patient: CHANTALE SOLOMON Sex: F [...] 2.5) 4 Clinical Report - Physicians/Mid Levels [facility] Emergency Department [address] [place] [address] Phone #: ext- [phone] 07/31/2021 09:34 Patient: [...] SHAUNA COMMENT: Magnesium: (SARAH: 07/31/2021 10:21) ( [facility] 07/31/2021 11:00) Final results Test Result Flag Units (Reference) MAGNESIUM 1.9 MG/DL (1.7 - 2.2)Troponin-T: (SARAH: 07/31/2021 10:21) ( [facility] 07/31/2021 10:48) Final results Test Result Flag Units (Reference) TROPONIN T 0.02 NG/ML (0.00 - 0.10) TROPONIN T0.1 ng/ml Recommended as the clinical threshold value Kathie MaxwellChest Portable 1 View: (SARAH: 07/31/2021 10:05) ( MsgRcvd 07/31/2021 10:53) In ProgressCHEST PORTABLEReason(s): Shortness of BreathTRANSP ORTATION: P IV? O2? Oxygen?(Yes) Room: E Exam CHEST PORTABLE [facility] [address] [address] PHONE: [phone] FAX: [phone] Name .................. : JUANITO Daniels Acct Number.................. : [id number] ROOM. ................. : VT-06 MR Number ................... : [id number] Stay type ............. : E/R Discharge Date......... ... : Admit Date ......... : 07/31/21 Admit Phys .................... : BRENDA Stoddard Date of ....... : 1965 Family Phys ................... : SEQUEIRA Phone .................. : [phone] Age ................................ : 56 Film# .................. .:[id number] Sex ................................. : F Unsigned transcriptions are preliminary reports and do not represent a medical or legal document CHEST PORTABLE [id number] COMPLETE:07/31/21 10:30 KBO [id number] Reason(s): Shortness of Breath 5 Clinical Report - Physicians/Mid Levels [facility] Emergency Department [address] [place] [address] Phone #: ext- [phone] 07/31/2021 09:34 Patient: CHANTALE SOLOMON Sex: F [...] acute abnormality is noted. Page 1of [address] [place] [address] PHONE: [phone] FAX: [phone] Name .................. : JUANITO Daniels Acct Number.................. : [id number] ROOM. ................. : MR Number ................... : [id number] Stay type ............. : E/R Discharge Date......... ... : Admit Date ......... : 07/31/21 Admit Phys .................... : BRENDA Stoddard Date of ....... : 1965 Family Phys ................... : SEQUEIRA Phone .................. : [phone] Age ................................ : 56 Film# .................. .:[id number] Sex ................................. : F Unsigned transcriptions are preliminary reports and do not represent a medical or legal document CHEST PORTABLE [id number] COMPLETE:07/31/21 10:30 KBO [id number] Reason(s): Shortness of Breath Electronically Reviewed and Signed By DCTNAME , SIGNDATE, HEATHB Transcribe Initials: NARESH, Transcribe Date: 07/31/21 10:53, Dictation Date: 6 Clinical Report - Physicians/Mid Levels [facility] Emergency Department [address] [place] [address] Phone #: yay- [phone] 07/31/2021 09:34 Patient: CAHNTALE SOLOMON Sex: F : 1965 Age: 56y [...] daily. 7 Clinical Report - Physicians/Mid Levels [facility] Emergency Department [address] [place] [address] Phone #: ext- [phone] 07/31/2021 09:34 Patient: [...] Follow-up with: Osmel Alvarez MD, Cardiology, , [address] [place] [address], [address] Follow up in two days if not better. Call for an appointment. Reason for referral: evaluation.(Electronically signed by Rory Gomez 07/31/2021 15:07) Name Value Range Interpretation Code Description Data Maura rce(s) Supporting Document(s) ID Date Data Source [id number] 07/31/2021 11:05:00 AM EDT [facility] Name Value Range Interpretation Code Description Data Maura rce(s) Supporting Document(s) CBC W/AUTOMATED DIFF [facility] COMPLETE BLOOD COUNT Leukocytes [#/volume] in Blood by Automated count 12.4 10^3/uL 4.2 - 11.0 H [facility] Erythrocytes [#/volume] in Blood by Automated count 2.81 10^6/uL 4. 20 - 5.40 L [facility] Hemoglobin [Mass/volume] in Blood 9.9 g/dL 12.0 - 16.0 L [facility] Hematocrit [Volume Fraction] of Blood by Automated count 30.4 % 3 7.0 - 47.0 L [facility] Erythrocyte mean corpuscular volume [Entitic volume] b y Automated count 108.2 fL 81.0 - 101 H [facility] Erythrocyte mean corpuscular hemoglobin [Entitic mass] by Automated count 35.2 pg 27.0 - 34.0 H [facility] Erythrocyte mean corpuscular hemoglobin concentration [Mass/volume] by Automated count 32.6 g/dL 31.0 - 36.0 [facility] Erythrocyte distribution width [Ratio] by Automated count 14.8 % 11.5 - 14.5 H [facility] Platelets [#/volume] in Blood by Automated count 174 10^3/uL 150 - 45 0 [facility] Platelet mean volume [Entitic volume] in Blood by Automated count 9.6 fL 7.4 - 10.4 [facility] Neutrophils/100 leukocytes in Blood by Automated count 91.5 % 37. 0 - 80.0 H [facility] Lymphocytes/100 leukocytes in Blood by Manual count 3.0 % 25.0 - 40.0 L [facility] Monocytes/100 leukocytes in Blood by Automated count 1.8 % 3.0 - 8.0 L [facility] Eosinophils/100 leukocytes in Blood by Automated count 3.1 % 0.0 - 7.0 [facility] Basophils/100 leukocytes in Blood by Automated count 0.3 % 0.0 - 2.5 [facility] %IG 0.3 % 0.0 - 0.0 H [facility] al %NRBC 0.0 % 0.0 - 0.0 [facility] al Neutrophils [#/volume] in Blood by Automated count 11.35 10^3/uL 2. 00 - 6.90 H [facility] Lymphocytes [#/volume] in Blood by Automated count 0.37 10^3/uL 0.60 - 3.40 L [facility] Monocytes [#/volume] in Blood by Automated count 0.22 10^3/uL 0.00 - 0.90 [facility] Eosinophils [#/volume] in Blood by Automated count 0.38 10^3/uL 0.00 - 0.70 [facility] Basophils [#/volume] in Blood by Automated count 0.04 10^3/uL 0.00 - 0.20 [facility] #IG 0.04 10^3/uL 0.00 - 0.10 [facility] #NRBC 0.00 10^3/uL 0.00 - 0.00 [facility] MANUAL DIFF SEE BELOW [facility] ital Segmented neutrophils/100 leukocytes in Blood by Manual count 95 % 37 - 80 H [facility] %LYMPH 3 % 25 - 40 L [facility] al %MONO 1 % 3 - 8 L [facility] al %EOS 1 % 0 - 7 [facility] al RBC MORPH SEE BELOW [facility] al Anisocytosis [Presence] in Blood by Light microscopy 1+ SHAUNA L: NONE SEEN A [facility] HYPO 1+ NORMAL: NONE SEEN A [facility] { SICKLE CELL (NORMAL: NONE SEEN ) Platelet adequacy [Presence] in Blood by Light microscopy NORMAL NORMAL: NORMAL [facility] COMMENT: ID Date Data Source [id number] 07/31/2021 11:02:00 AM EDT [facility] Name Value Range Interpretation Code Description Data Maura rce(s) Supporting Document(s) BASIC METABOLIC PANEL [facility] BASIC METABOLIC PANEL Sodium [Moles/volume] in Serum or Plasma 138 mEq/L 134 - 153 [facility] Potassium [Moles/volume] in Serum or Plasma 4.7 mEq/L 3.6 - 5.0 [facility] Chloride [Moles/volume] in Serum or Plasma 101 mEq/L 98 - 107 [facility] Carbon dioxide, total [Moles/volume] in Serum or Plasma 27 MEQ/L 22 - 30 [facility] Glucose [Mass/volume] in Serum or Plasma 102 MG/DL 70 - 99 H [facility] BUN 21 MG/DL 7 - [facility] Creatinine [Mass/volume] in Serum or Plasma 1.3 MG/DL 0.7 - 1.5 [facility] BUN/CREAT 16 8 - 27 [facility] Calcium [Mass/volume] in Serum or Plasma 9.1 MG/DL 8.4 - 10.2 [facility] Anion gap 3 in Serum or Plasma 10.0 mmol/L 8.0 - 16.0 [facility] AGE 56 yrs [facility] AFR AMER GFR 54 mL/min [facility] NON-AA GFR 45 mL/min [facility] willy Male GFR Inter [...] >32 mL/min Normal ID Date Data Source [id number] 07/31/2021 11:00:00 AM EDT [facility] Name Value Range Interpretation Code Description Data Maura rce(s) Supporting Document(s) Magnesium [Mass/volume] in Serum or Plasma 1.9 MG/DL 1.7 - 2.2 [facility] ID Date Data Source [id number] 07/31/2021 10:48:00 AM EDT [facility] Name Value Range Interpretation Code Description Data Maura rce(s) Supporting Document(s) TROPONIN T 0.02 NG/ML 0.00 - 0.10 [facility] spital TROPONIN T0.1 ng/ml Recommended as the c linical threshold value forTroponin T. ID Date Data Source [id number] 07/02/2021 07:33:00 [place] [address] RESPIRATORY CARE REPORT ==== ---------NAME------- NUMBER SEX AGE ADMIT DISC. XRAY# F/C CYNDY Daniels [id number] F 56 06/29/21 06/29/21 [id number] [facility] E/R DATE OF : 1965 M/R# [id number] #: [id number] TR-07 LOCATION: EMERGENCY DEPT EKG [id number] COMP LETE:06/30/21 00:28 [place] [address]88 EKG [id number] COMPLETE:06/30/21 02:04 VMT 86410 PHYSICIAN: BRENDA Stoddard Name Value Range Interpretation Code Description Data Maura rce(s) Supporting Document(s) ID Date Data Source [id number] 06/29/2021 10:49:00 AM EDT [facility] 1 OrderSheet [facility] Emergency Department [address] [place] [address] Phone #: ext- [phone] 06/29/2021 10:46 Patient: CHANTALE SOLOMON Sex: F : 1965 Age: 56yWEIGHT:77.1 kg (S) HEIGHT:60 inches (S) BMI:33.2ALLERGIES: Penicillins, SeafoodCHIEF COMPLAINT: palpitationsDIAGNOSIS: Anemia, Atrial fibrillationLAB ORDERSOrder Description Priority Entered Acknowledged InitialedCBC w Diff STAT 10:59 06/29/2021 11:08 Rory Cadet ; Vaughn FLORESBNP STAT 10:59 06/29/2021 11:08 Rory Cadet RNCMP [...] rce(s) Supporting Document(s) ID Date Data Source [id number] 06/29/2021 10:49:00 AM EDT [facility] 1 Medication Reconciliation Report [facility] Emergency Department [address] [place] [address] Phone #: ext- [phone] 06/29/2021 10:46 Patient: [...] Medication information:Not obtained. 2 Medication Reconciliation Report [facility] Emergency Department [address] [place] [address] Phone #: ext [phone] 06/29/2021 10:46 Patient: CHANTALE SOLOMON Sex: F : 1965 Age: 56yThe following Medications were given to the patient in the Emergency Department:None.The following Medications were prescribed to the patient:None. Name Value Range Interpretation Code Description Data Maura rce(s) Supporting Document(s) ID Date Data Source [id number] 06/29/2021 10:49:00 AM EDT [place] [address] Medication Administration Record [facility] Emergency Department [address] [place] [address] Phone #: ext [phone] 06/29/2021 10:46 Patient: CHANTALE SOLOMON A cct#: [id number] Sex: F : 1965 Age: 56yWeight: 77.1 kgHeight/Length: 60 inBMI: 33.2ALLERGIES: Penicillins, SeafoodDate/Time Medication Administered Medication Ordered Name Value Range Interpretation Code Description Data Maura rce(s) Supporting Document(s) ID Date Data Source [id number] 06/29/2021 10:49:00 AM EDT [place] [address] General Instructions [facility] Emergency Department [address] [place] [address] Phone #: ext [phone] 06/29/2021 10:46 Patient: CHANTALE SOLOMON Sex: F [...] patient.Follow-up with: Osmel Alvarez MD, Cardiology, , [address] [place] [address], [facility] Follow up in three days. Call for an appointment. Reason for referral: evaluation. 2 General Instructions [facility] Emergency Department [address] [place] [address] Phone #: ext- [phone] 06/29/2021 10:46 Patient: CHANTALE SOLOMON Sex: F : 1965 Age: 56y(Electronically signed by Rory Gomez 06/29/2021 15:34) Name Value Range Interpretation Code Description Data Maura rce(s) Supporting Document(s) ID Date Data Source [id number] 06/29/2021 10:49:00 AM EDT [facility] 1 Clinical Report - Nurses [facility] Emergency Department [address] [place] [address] Phon e #: ext- [phone] 06/29/2021 10:46 Patient: CHANTALE SOLOMON Sex: F [...] alpatations).Alert.This started today. Onset. (30 minutes ago).Treatment DRAMATIC READER:Took Tylenol. (0900).SEPSIS SCREEN: SEPSIS SCREEN NEGATIVE. No [...] Reason for 2 Clinical Report - Nurses [facility] Emergency Department [address] [place] [address] Phone #: ext- [phone] 06/29/2021 10:46 Patient: [...] heel spur.Septoplasty.Septoplasty.Tonsillectomy. 3 Clinical Report - Nurses [facility] Emergency Department [address] [place] [address] Phone #: ext- [phone] 06/29/2021 10:46 Patient: [...] Mendes RN. 4 Clinical Report - Nurses [facility] Emergency Department [address] [place] [address] Phone #: ext- [phone] 06/29/2021 10:46 Patient: CHANTALE SOLOMON Sex: F : 1965 Age: 56yNURSING PROGRESS NOTES10:45 06/29/2021 Site #1 started via IV in the right forearm with an 20g angiocath; one attempt. Blooddrawn: Manga Corta set and blood bank tube. Labeled in the presence of the patient and sent to the lab. [place] flushed with 10 mL saline. --11:03 06/29/21 Yandel Mendes RN Cardiac rhythm: atrial fibrillation; (1035). Oxygen administered by nasal cannula at 3 liters (1035). hospital monitor, NIBP monitor and pulse oximeter placed on patient; cardiac rehab nurse- Lead II; monitor alarms on; monitor strip added to paper chart. EKG time: (10:35 06/29/2021). EKG was performed by a nurse and shown to the ED physician. A Fib. Checked patient name and birthdate. Blood samples drawn from the right forearm peripheral IV site by nurse per protocol ; labeled in presence of the patient and sent to lab: Manga Corta set. Initial blood discarded. (1045). Patient gowned. [...] air. --12:05 06/29/21 Yandel Mendes RN ( 1415 Dr Gomez in to reassess pt and [...] 0/10. --14:02 06/29/21 Yandel Mendes RN ( [address] Duy Ruiz in to see pt). --14:09 06/29/21 Yandel Mendes RN. 5 Clinical Report - Nurses [facility] Emergency Department [address] [place] [address] Phone #: ext- [phone] 06/29/2021 10:46 Patient: CHANTALE SOLOMON Sex: F : 1965 Age: 56yDISPOSITION / DISCHARGE 14:43 06/29/21. Condition at departure: improved. No learning barriers present. Discharge instructions provided and reviewed with the patient. Reviewed medication(s) (no new med). 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 Patient verbalized understanding. Written instructions provided in Estonian. The patient was discharged by the physician. [...] rce(s) Supporting Document(s) ID Date Data Source [id number] 06/29/2021 10:49:00 AM EDT [facility] 1 Clinical Report - Physicians/Mid Levels [facility] Emergency Department [address] [place] [address] Phone #: ext- [phone] 06/29/2021 10:46 Patient: [...] spur. 2 Clinical Report - Physicians/Mid Levels [facility] Emergency Department [address] [place] [address] Phone #: ext- [phone] 06/29/2021 10:46 Patient: CHANTALE SOLOMON [facility]#: [id number] Sex: F : 1965 Age: 56y Right [...] inspection. 3 Clinical Report - Physicians/Mid Levels [facility] Emergency Department [address] [place] [address] Phone #: ext- [phone] 06/29/2021 10:46 Patient: [...] A (NORMAL: SHAUNA 4 Clinical Report - Physicians/[facility] Emergency Department [address] [place] [address] Phone #: ext- [phone] 06/29/2021 10:46 Patient: [...] Male GFR Interprentation 20-49 yrs >60 mL/min Ikmndh72-61 yrs >56 mL/min Normal 60-69 yrs >49 mL/min Normal 70-79yrs>42 mL/min Normal 80 and above >35 mL/min Normal Female GFRInterpretation 20-39 yrs >60 mL/min Normal 40-49 yrs >58 mL/minNormal 50-59 yrs >51 mL/min Normal 60-69 yrs >45 mL/min Rxdvxb81-97 yrs >39 mL/min Normal 80 and above >32 mL/min NormalTroponin-T: (SARAH: 06/29/2021 10:55) ( MsgRcvd 06/29/2021 12:14) Final results Test Result Flag Units (Reference) TROPONIN T 0.03 NG/ML (0.00 - 0.10) TROPONIN T0.1 ng/ml Recommended as the clinical threshold value forTroponin T.Magnesium: (SARAH: 06/29/2021 10:55) ( LagRcvd 06/29/2021 11:51) Final results Test Result Flag Units (Reference) MAGNESIUM 1.9 MG/DL (1.7 - 2.2)Chest Portable 1 View: (SARAH: 06/29/2021 10:59) ( [facility] 06/29/2021 12:56) Final resultsCHEST PORTABLEReason(s): CHFTRANSPORTATION: P IV? O2? Oxygen?(No) Room: ED 5 Clinical Report - Physicians/Mid Levels [facility] Emergency Department [address] [place] [address] Phone #: ext- [phone] 06/29/2021 10:46 -------- Patient: CHANTALE SOLOMON Sex: F : 1965 Age: 56[place] [address] PHONE: [phone] FAX: [phone] Name .................. : JUANITO Daniels Acct Number.................. : [id number] ROOM. ................. : TR-07 MR Number ................... : [id number] Stay type ............. : E/R Discharge Date......... ... : Admit Date ......... : 06/29/21 Admit Phys .................... : BRENDA Stoddard Date of ....... : 1965 Family Phys ................... : SEQUEIRA Phone .................. : [phone] Age ................................ : 56 Film# .................. .:[id number] Sex ................................. : F Unsigned transcriptions are preliminary reports and do not represent a medical or legal document CHEST PORTABLE [id number] COMPLETE:06/29/21 10:59 Reason(s): CHF PORTABLE CHEST SINGLE [...] MD , 06/29/21 12:41, JWWalter Transcribe Initials: DZ , Transcribe Date: 06/29/21 12:11, Dictation Date: 2 [place] [address] 6 Clinical Report - Physicians/Mid Levels [facility] Emergency Department [address] [place] [address] Phone #: ext- [phone] 06/29/2021 10:46 Patient: CHANTALE SOLOMON Sex: F : 1965 Age: 56y PHONE: [phone] FAX: [phone] Name .................. : JUANITO Daniels Acct Number.................. : [id number] ROOM. ................. : TR-07 MR Number ................... : [id number] Stay type ............. : E/R Discharge Date......... ... : Admit Date ......... : 06/29/21 Admit Phys .... ................ : BRENDA Stoddard Date of ....... : 1965 Family Phys ................... : SEQUEIRA Phone .................. : [phone] Age ................................ : 56 Film# .................. .:[id number] Sex ................................. : F Unsigned transcriptions are preliminary reports and do not represent a medical or legal document CHEST PORTABLE [id number] COMPLETE:06/29/21 10:59 Reason(s): CHF Copy for: 010 [...] cancer. 7 Clinical Report - Physicians/Mid Levels [facility] Emergency Department [address] [place] [address] Phone #: ext- [phone] 06/29/2021 10:46 Patient: [...] Follow-up with: Osmel Alvarez MD, Cardiology, , [address] [place] [address], [address] Follow up in three days. Call for an appointment. Reason for referral: evaluation.(Electronically signed by Rory Gomez 06/29/2021 15:34) Name Value Range Interpretation Code Description Data Maura rce(s) Supporting Document(s) ID Date Data Source [id number] 06/29/2021 12:41:00 [place] [address] PHONE: [phone] FAX: [phone] Name .................. : JUANITO ROMAN Jeremiah Acct Number.................. : [id number] ROOM. ................. : TR-07 MR Number ................... : [id number] Stay type ............. : E/R Discharge Date......... ... : Admit Date ......... : 06/29/21 Admit Phys .................... : BRENDA Stoddard Date of ....... : 1965 Family Phys ................... : SEQUEIRA Phone .................. : [phone] Age ................................ : 56 Film# .................. .:[id number] Sex ................................. : F Unsigned transcriptions are preliminary reports and do not represent a medical or legal document CHEST PORTABLE [id number] COMPLETE:06/29/21 10:59 Reason(s): CHF PORTABLE CHEST SINGLE [...] 12:11, Dictation Date: Page 1 of 2 [facility] [address] [place] [address] PHONE: [phone] FAX: [phone] Name .................. : JUANITO Daniels Acct Number.................. : [id number] ROOM. ................. : TR-07 MR Number ................... : [id number] Stay type ............. : E/R Discharge Date......... ... : Admit Date ......... : 06/29/21 Admit Phys .................... : BRENDA Stoddard Date of ....... : 1965 Family Phys ................... : SEQUEIRA Phone .................. : [phone] Age ................................ : 56 Film# .................. .:[id number] Sex ................................. : F Unsigned transcriptions are preliminary reports and do not represent a medical or legal document CHEST PORTABLE [id number] COMPLETE:06/29/21 10:59 Reason(s): CHF Copy for: 010 EMERGENCY SRV Copy for: EMERGENCY DEPT via modem Copy for: 710 MED REC Page 2 of 2 Name Value Range Interpretation Code Description Data Maura rce(s) Supporting Document(s) ID Date Data Source [id number] 06/29/2021 12:13:00 PM EDT [facility] Name Value Range Interpretation Code Description Data Maura rce(s) Supporting Document(s) TROPONIN T 0.03 NG/ML 0.00 - 0.10 [facility] TROPONIN T0.1 ng/ml Recommended as the c linical threshold value forTroponin T. ID Date Data Source [id number] 06/29/2021 11:51:00 AM EDT [facility] Name Value Range Interpretation Code Description Data Maura e(s) Supporting Document(s) Magnesium [Mass/volume] in Serum or Plasma 1.9 MG/DL 1.7 - 2.2 [facility] ID Date Data Source [id number] 06/29/2021 11:51:00 AM EDT [facility] Name Value Range Interpretation Code Description Data [facility] Supporting Document(s) COMPREHENSIVE METABOLIC PANEL [facility] COMPREHENSIVE METABOLIC PANEL Sodium [Moles/volume] in Serum or Plasma 136 mEq/L 134 - 153 [facility] Potassium [Moles/volume] in Serum or Plasma 3.7 mEq/L 3.6 - 5.0 [facility] Chloride [Moles/volume] in Serum or Plasma 99 mEq/L 98 - 107 [facility] Carbon dioxide, total [Moles/volume] in Serum or Plasma 26 MEQ/L 22 - 30 [facility] Glucose [Mass/volume] in Serum or Plasma 163 MG/DL 70 - 99 H [facility] BUN 16 MG/DL 7 - 21 [facility] al Creatinine [Mass/volume] in Serum or Plasma 1.4 MG/DL 0.7 - 1.5 [facility] BUN/CREAT 11 8 - 27 [facility] Protein [Mass/volume] in Serum or Plasma 5.7 G/DL 6.3 - 8.2 L [facility] Albumin [Mass/volume] in Serum or Plasma 3.5 G/DL 3.9 - 5.0 L [facility] Globulin [Mass/volume] in Serum by calculation 2.2 GM/DL 2.4 - 3.2 L [facility] A/G RATIO 1.6 0.8 - 2.0 [facility] Calcium [Mass/volume] in Serum or Plasma 8.5 MG/DL 8.4 - 10.2 [facility] Bilirubin.total [Mass/volume] in Serum or Plasma <0.7 MG/DL 0.2 - 1.3 [facility] Alkaline phosphatase [Enzymatic activity/volume] in Serum or Plasma 104 U/L 38 - 126 [facility] Aspartate aminotransferase [Enzymatic activity/volume] in Serum or Plasma 26 U/L 5 - 40 [facility] Alanine aminotransferase [Enzymatic activity/volume] in Seru m or Plasma 17 U/L 7 - 56 [facility] Anion gap 3 in Serum or Plasma 11.0 mmol/L 8.0 - 16.0 [facility] AGE 56 yrs [facility] [facility] A[facility] AMER GFR 50 mL/min [facility] Male GFR In [...] >32 mL/min Normal ID Date Data Source [id number] 06/29/2021 11:49:00 AM T [facility] Name Value Range Interpretation Code Description Data Maura rce(s) Supporting Document(s) BNP 1636 PG/ML 0 - 125 [facility] ID Date Data Source [id number] 06/29/2021 11:30:[address] [facility] Name Value Range Interpretation Code Description Data Maura rce(s) Supporting Document(s) CBC W/AUTOMATED DIFF [facility] COMPLETE BLOOD COUNT Leukocytes [#/volume] in Blood by Automated count 5.1 10^3/uL 4.2 - 1 1.0 [facility] Erythrocytes [#/volume] in Blood by Automated count 2.37 10^6/uL 4. 20 - 5.40 L [facility] Hemoglobin [Mass/volume] in Blood 8.3 g/dL 12.0 - 16.0 L [facility] Hematocrit [Volume Fraction] of Blood by Automated count 25.1 % 3 7.0 - 47.0 L [facility] Erythrocyte mean corpuscular volume [Entitic volume] b y Automated count 105.9 fL 81.0 - 101 H [facility] Erythrocyte mean corpuscular hemoglobin [Entitic mass] by Automated count 35.0 pg 27.0 - 34.0 H [facility] Erythrocyte mean corpuscular hemoglobin concentration [Mass/volume] by Automated count 33.1 g/dL 31.0 - 36.0 [facility] Erythrocyte distribution width [Ratio] by Automated count 15.7 % 11.5 - 14.5 H [facility] Platelets [#/volume] in Blood by Automated count 119 10^3/uL 150 - 45 0 L [facility] Platelet mean volume [Entitic volume] in Blood by Automated count 9.8 fL 7.4 - 10.4 [facility] Neutrophils/100 leukocytes in Blood by Automated count 76.6 % 37. 0 - 80.0 [facility] Lymphocytes/100 leukocytes in Blood by Manual count 6.6 % 25.0 - 40.0 L [facility] Monocytes/100 leukocytes in Blood by Automated count 12.1 % 3.0 - 8.0 H [facility] Eosinophils/100 leukocytes in Blood by Automated count 3.3 % 0.0 - 7.0 [facility] Basophils/100 leukocytes in Blood by Automated count 0.4 % 0.0 - 2.5 [facility] %IG 1.0 % 0.0 - 0.0 [facility] %NRBC 0.0 % 0.0 - 0.0 [facility] al Neutrophils [#/volume] in Blood by Automated count 3.92 10^3/uL 2.00 - 6.90 [facility] Lymphocytes [#/volume] in Blood by Automated count 0.34 10^3/uL 0.60 - 3.40 L [facility] Monocytes [#/volume] in Blood by Automated count 0.62 10^3/uL 0.00 - 0.90 [facility] Eosinophils [#/volume] in Blood by Automated count 0.17 10^3/uL 0.00 - 0.70 [facility] Basophils [#/volume] in Blood by Automated count 0.02 10^3/uL 0.00 - 0.20 [facility] #IG 0.05 10^3/uL 0.00 - 0.10 [facility] #NRBC 0.00 10^3/uL 0.00 - 0.00 [facility] MANUAL DIFF SEE BELOW [facility] ital Segmented neutrophils/100 leukocytes in Blood by Manual count 83 % 37 - 80 H [facility] %LYMPH 10 % 25 - 40 L [facility] al %MONO 5 % 3 - 8 [facility] %EOS 2 % 0 - 7 [facility] RBC MORPH [facility] BELOW [facility] Anisocytosis [Presence] in Blood by Light microscopy 1+ SHAUNA L: NONE SEEN A [facility] Macrocytes [Presence] in Blood by Light microscopy 1+ NORMAL: NONE SEEN A [facility] Poikilocytosis [Presence] in Blood by Light microscopy 1+ NOR MAL: NONE SEEN A [facility] { SICKLE CELL (NORMAL: NONE SEEN ) Ovalocytes [Presence] in Blood by Light microscopy 1+ NORMAL: NONE SEEN A [facility] Neutrophils.hypersegmented [Presence] in Blood by Light micr oscopy 2+ NORMAL: NONE SEEN A [facility] Platelet adequacy [Presence] in Blood by Light microscopy DE CREASED NORMAL: NORMAL A [facility] COMMENT: ID Date Data Source [id number] 06/28/2021 12:00:00 AM EDT [facility] Name Value Range Interpretation Code Description Data Maura rce(s) Supporting Document(s) SARS-CoV2 Rapid Antigen Negative [facility] This lab was reported by [facility]. ID Date Data Source [id number] 11/10/2020 12:00:00 AM EST [facility] Name Value Range Interpretation Code Description Data Maura rce(s) Supporting Document(s) SARS coronavirus 2 Ag Negative [facility] This lab was ordered by [facility] and reported by [facility]. ID Date Data Source [id number] 06/20/2021 08:00:00 AM EDT [facility] ([facility], ) Name Value Range Interpretation Code Description Data Maura rce(s) Supporting Document(s) Gram Stain Laboratory test result Normal (applies to non-n umeric results) [facility] ([facility], ) FEW WBCS NO ORGANISMS SEEN Bal Culture Laboratory test result Normal (applies to non- numeric results) [facility] ([facility], ) FULL REPORT IN LAB NOTES ([facility] and [facility] ). NO GROWTH AEROBICALLY ID Date Data Source [id number] 06/15/2021 01:30:00 PM EDT [facility] Name Value Range Interpretation Code Description Data Maura rce(s) Supporting Document(s) SARS-CoV-2 (COVID-19) RNA [Presence] in Respiratory specimen by DAR with probe detection Not Detected [facility] This lab was ordered by [facility] and reported by [facility]. ID Date Data Source [id number] 06/11/2021 10:20:00 AM EDT [facility] Name Value Range Interpretation Code Description Data Maura rce(s) Supporting Document(s) Thyroxine (T4) free index in Serum or Plasma by calculation 1.16 NG/DL 0.93 - 1.70 [facility] ID Date Data Source [id number] 06/11/2021 10:20:00 AM EDT [facility] Name Value Range Interpretation Code Description Data Maura rce(s) Supporting Document(s) Thyrotropin [Units/volume] in Serum or Plasma by Detec tion limit <= 0.05 mIU/L 2.07 uIU/mL 0.47 - 5.01 [facility] ID Date Data Source [id number] 06/11/2021 10:05:00 AM EDT [facility] Name Value Range Interpretation Code Description Data Maura rce(s) Supporting Document(s) BASIC METABOLIC PANEL [facility] BASIC METABOLIC PANEL Sodium [Moles/volume] in Serum or Plasma 139 mEq/L 134 - 153 [facility] Potassium [Moles/volume] in Serum or Plasma 4.3 mEq/L 3.6 - 5.0 [facility] Chloride [Moles/volume] in Serum or Plasma 100 mEq/L 98 - 107 [facility] Carbon dioxide, total [Moles/volume] in Serum or Plasma 28 MEQ/L 22 - 30 [facility] Glucose [Mass/volume] in Serum or Plasma 88 MG/DL 70 - 99 [facility] BUN 12 MG/DL 7 - 21 [facility] al Creatinine [Mass/volume] in Serum or Plasma 1.4 MG/DL 0.7 - 1.5 [facility] BUN/CREAT 9 8 - 27 [facility] al Calcium [Mass/volume] in Serum or Plasma 8.5 MG/DL 8.4 - 10.2 [facility] Anion gap 3 in Serum or Plasma 11.0 mmol/L 8.0 - 16.0 [facility] AGE 56 yrs [facility] al AFR AMER GFR 50 mL/min [facility] NON-AA GFR 41 mL/min [facility] Male GFR Inter prentation 20-49 [...] >32 mL/min Normal ID Date Data Source [id number] 06/11/2021 09:51:00 AM EDT [facility] Name Value Range Interpretation Code Description Data Maura rce(s) Supporting Document(s) CBC W/AUTOMATED DIFF [facility] COMPLETE BLOOD COUNT Leukocytes [#/volume] in Blood by Automated count 5.0 10^3/uL 4.2 - 1 1.0 [facility] Erythrocytes [#/volume] in Blood by Automated count 2.53 10^6/uL 4. 20 - 5.40 L [facility] Hemoglobin [Mass/volume] in Blood 8.7 g/dL 12.0 - 16.0 L [facility] Hematocrit [Volume Fraction] of Blood by Automated count 26.3 % 3 7.0 - 47.0 L [facility] Erythrocyte mean corpuscular volume [Entitic volume] b y Automated count 104.0 fL 81.0 - 101 H [facility] Erythrocyte mean corpuscular hemoglobin [Entitic mass] by Automated count 34.4 pg 27.0 - 34.0 H [facility] Erythrocyte mean corpuscular hemoglobin concentration [Mass/volume] by Automated count 33.1 g/dL 31.0 - 36.0 [facility] Erythrocyte distribution width [Ratio] by Automated count 16.0 % 11.5 - 14.5 H [facility] Platelets [#/volume] in Blood by Automated count 215 10^3/uL 150 - 45 0 [facility] Platelet mean volume [Entitic volume] in Blood by Automated count 9.3 fL 7.4 - 10.4 [facility] Neutrophils/100 leukocytes in Blood by Automated count 54.7 % 37. 0 - 80.0 [facility] Lymphocytes/100 leukocytes in Blood by Manual count 12.3 % 25.0 - 40.0 L [facility] Monocytes/100 leukocytes in Blood by Automated count 28.8 % 3.0 - 8.0 H [facility] Eosinophils/100 leukocytes in Blood by Automated count 2.8 % 0.0 - 7.0 [facility] Basophils/100 leukocytes in Blood by Automated count 0.4 % 0.0 - 2.5 [facility] %IG 1.0 % 0.0 - 0.0 [facility] %NRBC 0.0 % 0.0 - 0.0 [facility] al Neutrophils [#/volume] in Blood by Automated count 2.75 10^3/uL 2.00 - 6.90 [facility] Lymphocytes [#/volume] in Blood by Automated count 0.62 10^3/uL 0.60 - 3.40 [facility] Monocytes [#/volume] in Blood by Automated count 1.45 10^3/uL 0.00 - 0.90 H [facility] Eosinophils [#/volume] in Blood by Automated count 0.14 10^3/uL 0.00 - 0.70 [facility] Basophils [#/volume] in Blood by Automated count 0.02 10^3/uL 0.00 - 0.20 [facility] #IG 0.05 10^3/uL 0.00 - 0.10 [facility] #NRBC 0.00 10^3/uL 0.00 - 0.00 [facility] MANUAL DIFF SEE BELOW [facility] ital Segmented neutrophils/100 leukocytes in Blood by Manual count 58 % 37 - 80 [facility] %LYMPH 10 % 25 - 40 L [facility] al %MONO 28 % 3 - 8 H [facility] al %EOS 3 % 0 - 7 [facility] al Metamyelocytes/100 leukocytes in Blood by Manual count 1 % [facility] RBC MORPH SEE BELOW [facility] al Anisocytosis [Presence] in Blood by Light microscopy 2+ SHAUNA L: NONE SEEN A [facility] Macrocytes [Presence] in Blood by Light microscopy 2+ NORMAL: NONE SEEN A [facility] HYPO 2+ NORMAL: NONE SEEN A [facility] Polychromasia [Presence] in Blood by Light microscopy 1+ NORM AL: NONE SEEN A [facility] { SICKLE CELL (NORMAL: NONE SEEN ) Neutrophils.hypersegmented [Presence] in Blood by Light micr oscopy 1+ NORMAL: NONE SEEN A [facility] Platelet adequacy [Presence] in Blood by Light microscopy NORMAL NORMAL: NORMAL [facility] COMMENT: ID Date Data Source [id number] 06/05/2021 08:20:00 [place] [address] PHONE: [phone] FAX: [phone] Name .................. : JUANITO Daniels Acct Number.................. : [id number] ROOM. ................. : Number ................... : [id number] Stay type ............. : O/P Discharge Date......... ... : 06/04/21 Admit Date ......... : 06/04/21 Admit Phys .................... : KIM MENDEZ Date of ....... : 1965 Family Phys ................... : REGINE GAIL Phone .................. : [phone] Age ................................ : 56 Film# .................. .:[id number] Sex ................................. : F Unsigned transcriptions are preliminary reports and do not represent a medical or legal document DOPPLER UNILATERAL VENOUS [id number] COMPLETE:06/04/21 15:18 GSP [id number] Reason for Exam: R/O BLOOD CLOT ULTRASOUND [...] 06/04/21 19:14, Dictation Date: Copy for: KIM MENDEZZA via [employer] Copy for: Michael MED REC Page 1 of 1 Name Value Range Interpretation Code Description Data Maura rce(s) Supporting Document(s) ID Date Data Source [id number] 05/23/2021 08:00:00 AM EDT [facility] ([facility], ) Name Value Range Interpretation Code Description Data Maura rce(s) Supporting Document(s) Gram Stain Laboratory test result Normal (applies to non-n umeric results) [facility] ([facility], ) QUALITY: GOOD MODERATE EPITHELIAL CELLS MODERATE WBCS MANY GRAM POSITIVE COCCI IN PAIRS, CHAINS AND CLUSTERS FEW YEAST LIKE ORGANISM MANY GRAM POSITIVE RODS FEW GRAM NEGATIVE RODS Sputum Culture Laboratory test result Normal (applies to non-numeric results) [facility] ([facility], ) [facility]ULL RE[facility] NORMAL JEROME PRESENT ID Date Data Source [id number] 05/01/2021 08:44:00 PM EDT [facility] 1 OrderSheet [facility] Emergency Department [address] [place] [address] Phone #: ext- [phone] 05/01/2021 20:41 Patient: [...] Gloria SchneiderD-Dimer STAT 20:50 05/01/2021 20:59 Wyatt Cahnel Victoria Laura R.N. ;Magnesium STAT 21:36 05/01/2021 Cancelled: Duplicate Order 21:37 Gloria Schneider Laura R.N. ;DIAGNOSTIC STUDY ORDERS 2 OrderSheet [facility] Emergency Department [address] [place] [address] Phone #: ext- [phone] 05/01/2021 20:41 Patient: CHANTALE SOLOMON Sex: F [...] 4 mg (NOW Gloria Schneider Laura Laura R.N.x1) ; R.N.- (cardizem 180 mg 20:54 05/01/2021 Ack'd: 21:00 21:10 Yanique,po. 1 tab po now) Gloria Schneider Laura Laura R.N. ; R.N.Magnesium Sulfate 23:00 05/01/2021 23:16 Yanique,IVPB 1 gm (Verify Gloria Schneider R.N.Strength in ;[place], [place] GHALERTMEDICATION)GENERAL ORDERSOrder Description Priority Entered Acknowledged InitialedAccucheck 20:50 05/01/2021 20:58 Wyatt Chanel Victoria Laura R.N. ;Medical Writer 20:50 05/01/2021 20:51 Yanique(continuous) Gloria Schneider R.N. ;EKG 20:50 05/01/2021 20:51 Wyatt Chanel Victoria Laura R.N. 3 OrderSheet [facility] Emergency Department [address] [place] [address] Phone #: ext- [phone] 05/01/2021 20:41 Patient: CHANTALE SOLOMON Sex: F : 1965 Age: 55y ;NPO 20:50 05/01/2021 20:51 Wyatt Chanel Victoria Laura R.N. ;Obtain Old EKG 20:50 05/01/2021 20:51 Wyatt Chanel Victoria Laura R.N. ;Obtain Old Records 20:50 05/01/2021 20:51 Wyatt Chanel Victoria Laura R.N. ;Oxygen (2 L/min) 20:50 05/01/2021 20:51 Yanique(NC) (Titrate to O2 Chanliecco, Gloria Jacquelyn R.N.Sat >95%) ;Pulse oximeter 20:50 05/01/2021 20:51 [...] rce(s) Supporting Document(s) ID Date Data Source [id number] 05/01/2021 08:44:00 PM EDT [facility] 1 Medication Reconciliation Report [facility] Emergency Department [address] [place] [address] Phone #: ext- [phone] 05/01/2021 20:41 Patient: [...] the Emergency Department: 2 Medication Reconciliation Report [facility] Emergency Department [address] [place] [address] Phone #: ext- [phone] 05/01/2021 20:41 Patient: CHANTALE SOLOMON Sex: F : 1965 Age: 55yCardizem [PO] PO 180 mg, administered: 21:10 05/01/2021Zofran [IVP] IVP 4 mg, administered: 21:05/01/2021odium Chloride [IV] IV Fluids bolus 0, then 1000 mL/hr, administered: 21:11 05/01/2021Magnesium Sulfate [IVPB] IVPB bolus 0, then 1 gm 50 mL/hr, administered: 23:12 05/01/2021The following Medications were prescribed to the patient:None. Name Value Range Interpretation Code Description Data Maura rce(s) Supporting Document(s) ID Date Data Source [id number] 05/01/2021 08:44:00 PM EDT [facility] 1 Medication Administration Record [facility] Emergency Department [address] [place] [address] Phone #: ext- [phone] 05/01/2021 20:41 Patient: CHANTALE SOLOMON Sex: F : 1965 Age: 55yWeight: 79.3 kgHeight/Length: 60 inBMI: 34.1ALLERGIES: Penicillins, Seafood Date/Time Medication Administered Medication OrderedStart SODIUM CHLORIDE [IV] NS IV 1000 mL Bolus: : Bolus [id number] 05/01/2021 Dose: IV Fluids mL (X1)Jacquelyn Chanel R.N. Rate: 1000 mL/hr over 1 hour(s)---- Dispensed: 1000 mL bagStop Site: #1 left AC22:46 05/01/2021Jacquelyn Chanel R.N.Given ZOFRAN [IVP] (ONDANSETRON HCL) Zofran 4 mg IVP X 1 dose: 4 mg21:11 05/01/2021 Dose: 4 mg IVP (NOW x1)Jacquelyn hCanel R.N. Site: #1 left ACGiven CARDIZEM [PO] (DILTIAZEM HCL) - (cardizem 180 mg po. 1 tab po21:10 05/01/2021 Dose: 180 mg PO now)Jacquelyn Chanel R.N.Start MAGNESIUM SULFATE [IVPB] Magnesium Sulfate IVPB 1 gm23:12 05/01/2021 Dose: 1 gm IVPB (Verify Strength in Omniceestrella HIGHJacquelyn Chanel R.N. Rate: 50 mL/hr over 30 minute(s) ALERT MEDICATION)---- Dispensed: 25 mL bagStop Site: #1 left AC00:00 05/02/2021Jacquelyn Chanel R.N. Name Value Range Interpretation Code Description Data Maura rce(s) Supporting Document(s) ID Date Data Source [id number] 05/01/2021 08:44:00 PM EDT [facility] 1 General Instructions [facility] Emergency Department [address] [place] [address] Phone #: ext- [phone] 05/01/2021 20:41 Patient: CHANTALE SOLOMON Sex: F [...] paper. ADDITIONAL INFORMATIONAbout Arrhythmias 2 General Instructions [facility] Emergency Department [address] [place] [address] Phone #: ext- [phone] 05/01/2021 20:41 Patient: [...] Chest pain or pressure 3 General Instructions [facility] Emergency Department [address] [place] [address] Phone #: ext- [phone] 05/01/2021 20:41 Patient: [...] Obesity Congenital heart disease 4 General Instructions [facility] Emergency Department [address] [place] [address] Phone #: ext- [phone] 05/01/2021 20:41 Patient: [...] help. Tell your doctor about any prescription, [id number], or herbal medicines you take. These may be affecting your heart rhythm.Follow-up careFollow up with your healthcare provider, or as advised. If a Holter monitor has been recommended,contact the metal filer you have been referred to as soon as you can vegetable picker the device. Otheroutpatient tests may also be [...] faint, or d amy 5 General Instructions [facility] Emergency Department [address] [place] [address] Phone #: ext- [phone] 05/01/2021 20:41 ------ Patient: CHANTALE SOLOMON Sex: [...] help while trying to find them. [employer]. [address] [place] [address]. All rights reserved. This information is not [...] first week of treatment. 6 General Instructions [facility] Emergency Department [address] [place] [address] Phone #: ext- [phone] 05/01/2021 20:41 Patient: CHANTALE SOLOMON Sex: F : 1965 Age: 55yHome careFollow these guidelines when caring for yourself [...] smoke in your home. 7 General Instructions [facility] Emergency Department [address] [place] [address] Phone #: ext- [phone] 05/01/2021 20:41 Patient: CHANTALE SOLOMON Sex: F : 1965 Age: 55y Prevent lung infections. Ask your healthcare provider about the flu and pneumonia vaccines. Take steps to prevent colds and other lung infections. Practice correct handwashing. Wash your hands often with soap and water. Use hand construction engineer when you can't wash your hands. Stay [...] about whichpneumococcal vaccine is best for you.Call [phone] any of these occur: 8 General Instructions [facility] Emergency Department [address] [place] [address] Phone #: [phone] ext- [phone] 05/01/2021 20:41 Patient: CHANTALE SOLOMON Sex: Shaye [...] Symptoms that get worse or not improving [id number] [employer]. [address] [place] [address]. All rights reserved. This information is not intendedas a substitute for professional medical care. Always follow your healthcare professional's instructions. You have been given the following additional information: About Arrhythmias Pneumonia (Adult) 9 General Instructions [facility] Emergency Department [address] [place] [address] Phone #: ext- [phone] 05/01/2021 20:41 Patient: CHANTALE SOLOMON Sex: F : 1965 Age: 55y(Electronically signed by Gloria Schneider 05/03/2021 07:05) Name Value Range Interpretation Code Description Data Maura rce(s) Supporting Document(s) ID Date Data Source [id number] 05/01/2021 08:44:00 PM EDT [facility] 1 Clinical Report - Nurses [facility] Emergency Department [address] [place] [address] Phone #: ext- [phone] 05/01/2021 20:41 Patient: CHANTALE SOLOMON Sex: F : 1965 Age: 55yTRIAGEArrived by private vehicle. Historian: patient. Accompanied by family.Acuity: LEVEL 3.Chief Complaint: (Chest pressure).Alert. No acute distress.This started just prior to arrival. ( Patient states about 20 minutes ago she started feeling chest pressuresimilar to when she goes into a[facility]. States she just had an appointment with yesterday and medswere not changed.). She has had nausea.Treatment DRAMATIC READER:None.SEPSIS SCREEN: SIRS SCREEN NEGATIVE. SEPSIS SCREEN NEGATIVE. [...] 10 mg) 1 tablet, daily. --20:46 05/01/21 Lnyette Harris Metoprolol Succinate ER Oral. --20:46 05/01/21 Lynette Harris Levaquin Oral. --20:49 05/01/21 Nidia Peck R.N.AllergiesPenicillins.Seafood. --20:46 05/01/21 Lynette Harris. 2 Clinical Report - Nurses [facility] Emergency Department [address] [place] [address] Phone #: ext- [phone] 05/01/2021 20:41 Patient: [...] carrierof CRE. 3 Clinical Report - Nurses [facility] Emergency Department [address] [place] [address] Phone #: ext- [phone] 05/01/2021 20:41 Patient: CHANTALE SOLOMON Sex: F [...] 05/01/21Lynette Harris EKG was performed by a amandeep and shown to the ED physician. --20:47 05/01/21 Lynette Harris Cardiac rhythm: atrial fibrillation. --20:47 05/01/21 Lynette Harris 4 Clinical Report - Nurses [facility] Emergency Department [address] [place] [address] Phone #: ext- [phone] 05/01/2021 20:41 Patient: CHANTALE SOLOMON Sex: F : 1965 Age: 55y21:10 [...] flushed with 10 mL saline.--21:05/01/21 Jacquelyn Chanel R.N.21:05/01/2021 Zofran (Ondansetron HCl) IVP 4 mg given [...] post-medication administration. Information reviewedwith patient. Verbalizes understanding. --21:11 05/01/21 Jacquelyn Chanel R.N.EKG time: (late entry - [...] amount infused: 5 Clinical Report - Nurses [facility] Emergency Department [address] [place] [address] Phone #: ext- [phone] 05/01/2021 20:41 Patient: [...] Patient verbalized understanding. Written instructions provided in Estonian. The patient was discharged by the physician. She was discharged home and accompanied by spouse. She left ambulatory and via private vehicle. Spouse driving. --01:45 05/02/21 Jacquelyn Chanel R.N.Locked/Released at 05/02/2021 01:45 by Jacquelyn Chanel R.N. Name Value Range Interpretation Code Description Data Maura rce(s) Supporting Document(s) ID Date Data Source [id number] 05/01/2021 08:44:00 PM EDT [facility] 1 Clinical Report - Physicians/Mid Levels [facility] Emergency Department [address] [place] [address] Phone #: ext- [phone] 05/01/2021 20:41 [id number] Sex: F : 1965 Age: 55y Time [...] Palpitations. 2 Clinical Report - Physicians/Mid Levels [facility] Emergency Department [address] [place] [address] Phone #: ext- [phone] 05/01/2021 20:41 Patient: [...] normal. 3 Clinical Report - Physicians/Mid Levels [facility] Emergency Department [address] [place] [address] Phone #: ext- [phone] 05/01/2021 20:41 [id number] Sex[facility] F : 1965 Age: 55y Appearance: [...] carcamo Neal - 05/01/2021 9:19:13 PM nad. allie). Laboratory Tests: CT CTA CHEST NON-CORONARY W CON INC PP: (SARAH: 05/01/2021 23:01) ( M sgRcvd 05/02/2021 01:30) Final results Test Result Flag Units (Reference) CT CTA CHEST NON-CORONARY W CON INC PP [address] [place] [address] ---------NAME--------- NUMBER SEX AGE ADMIT DISC. XRAY# F/C TYPE JUANITO Daniels [id number] F 55 05/01/21 [id number] BBF E/R DATE OF : 1965 M/R# [id number] PH#: [phone] TR-02 LOCATION: EMERGENCY DEPT TRANSCRIBED: 05/02/21 1:[address] CTA CHEST NON-CORONARY W [id number] COMPLETED:05/02/21 17 DLA 97771 Reason(s): chest oain palpitation elevated d dimer -- PHYSICIAN: WYATT -- -- R A D I O L O G Y R E P O R T -- PATIENT HISTORY: ACTUAL DOSE 947.6 mGy*cm chest pain palpitations elevated d dimer isovue 370 75cc [id number] March 2023 was given Patient hx menopause. Verification of 2 patient identifiers performed. 4 Clinical Report - Physicians/Mid Levels [facility] Emergency Department [address] [place] [address] Phone #: ext- [phone] 05/01/2021 20:41 Patient: CHANTALE SOLOMON Sex: F : 1965 Age: 55yTime Out performed. type and amount of contrast used, correct body part and sideall verified prior to examination. Exam has been sent to [facility] - If further informationis needed, the number is . Report will be faxed to ED and/orXray. / O-MAR, SOFT TISSUE, O-MAR. Compare with non-O-MAR images (DICOM Hx)EXAM: CTA Chest with Intravenous Contrast for PE evaluation--CLINICAL HISTORY:ACTUAL DOSE 947.6 mGy*cm chest pain palpitations elevated ddimer isovue 370 75cc [id number] March 2023 was given Patient hx menopause.Verification of 2 patient identifiers performed. Time Out performed. type andamount of contrast used, correct body part and side all verified prior toexamination. Exam has been sent to [facility] - If furtherinformation is needed, the [...] low as reasonably achievable.--CONTRAST:With; isovue 370 75cc [id number] March 2023 was administered without-- incident.--COMPARISON: CT [...] techniques.-- 5 Clinical Report - Physicians/Mid Levels [facility] Emergency Department [address] [place] [address] Phone #: ext- [phone] 05/01/2021 20:41 Patient: [...] 5.0) 6 Clinical Report - Physicians/Mid Levels [facility] Emergency Department [address] [place] [address] Phone #: ext- [phone] 05/01/2021 20:41 Patient: [...] Male GFR Interprentation 20-49 yrs >60 mL/min Bywmxp20-29 yrs >56 mL/min Normal 60-69 yrs >49 mL/min Normal 70-79yrs>42 mL/min Normal 80 and above >35 mL/min Normal Female GFRInterpretation 20-39 yrs > 60 mL/min Normal 40-49 yrs >58 mL/minNormal 50-59 yrs >51 mL/min Normal 60-69 yrs >45 mL/min Wvfgyx38-41 yrs >39 mL/min Normal 80 and above >32 mL/min NormalMagnesium: (SARAH: 05/01/2021 21:30) ( [facility] 05/01/2021 22:11) Final results Test Result Flag Units (Reference) MAGNESIUM 1.6 L MG/DL (1.7 - 2.2)Troponin-T: (SARAH: 05/01/2021 20:56) ( [facility] 05/01/[facility]21 21:29) Final results Test Result Flag Units (Reference) TROPONIN T 0.02 NG/ML (0.00 - 0.10) TROPONIN T0.1 ng/ml Recommended as the clinical threshold value forTroponin T.TSH: (SARAH: 05/01/2021 21:30) ( [facility] 05/01/2021 22:09) Final results Test Result Flag Units (Reference) TSH 1.79 uIU/mL (0.47 - 5.01)Urinalysis: (SARAH: 23:10) ( [facility] 05/01/2021 23:53) Final results Test Result [...] Not IndicateDrug Screen-Urine: (SARAH: 05/01/2021 20:50) ( [facility] 05/01/2021 21:04) CanceledD-Dimer: (SARAH: 05/01/2021 21:30) ( [facility] 05/01/2021 21:56) Final results 7 Clinical Report - Physicians/Mid Levels [facility] Emergency Department [address] [place] [address] Phone #: ext- [phone] 05/01/2021 20:41 Patient: CHANTALE SOLOMON Sex: F : 1965 Age: 55y Test Result Flag Units (Reference) D-DIMER QUANT 1.21 H ug/mL (0.27 - 0.50)Chest Portable 1 View: (SARAH: 05/01/2021 20:50) ( MsgRcvd 05/02/2021 00:40) In ProgressCHEST PORTABLEReason(s): PalpitationTRANSPORTATION: P IV? O2? Oxygen?(No) Room: [place] [address] PHONE: FAX: [phone] Name .................. : JUANITO Daniels Acct Number.................. : [id number] ROOM. ................. : TR-02 MR Number ................... : [id number] Stay type ............. : E/R Discharge Date......... ... : Admit Date ......... : 05/01/21 Admit Phys .................... : WYATT Date of ....... : 1965 Family Phys ................... : SEQUEIRA Phone .................. : [phone] Age ................................ : 55 Film# .................. .:[id number] Sex ................................. : F Unsigned transcriptions are preliminary reports and do not represent a medical or legal document CHEST PORTABLE 43565 COMPLETE:05/01/21 21:04 DLA 36984 Reason(s): Palpitation PORTABLE CHEST X-RAY: INDICATION: Palpitations. [...] significant change. Electronically Reviewed and Signed By DCTMARILUE SIGNDATEMARIA C Transcribe Initials: REYES , Transcribe Date: 05/02/21 00:37, Dictation Date: <<REPDIST>> Page 1of 1 8 Clinical Report - Physicians/Mid Levels [facility] Emergency Department [address] [place] [address] Phone #: ext- [phone] 05/01/2021 20:41 Patient: CHANTALE SOLOMON Sex: F [...] daily. 9 Clinical Report - Physicians/Mid Levels [facility] Emergency Department [address] [place] [address] Phone #: ext- [phone] 05/01/2021 20:41 Patient: CHANTALE SOLOMON Sex: F : 1965 Age: 55y Furosemide [...] rce(s) Supporting Document(s) ID Date Data Source [id number] 05/01/2021 08:44:00 PM EDT [facility] for CHANTALE SOLOMON VisitID: [id number] Date: 14:07FSG ordered but not performed. please cancel order. blood sugar on chemistry was 109(Electronically signed by Gloria Schneider - 05/20/2021 14:07) Name Value Range Interpretation Code Description Data Maura rce(s) Supporting Document(s) ID Date Data Source [id number] 05/13/2021 09:14:00 [place] [address] DISCHARGE SUMMARYNAME: JUANITO Daniels ROOM#: [id number] OF : 1965 MR#: [id number] PHYS: Osmel Alvarez MD, PC DATE: 04/17/21 [...] inhalation daily2. Diltiazem 180 p.o. daily 1 [place] [address] DISCHARGE SUMMARYNAME: JUANITO Daniels ROOM#: [id number] OF : 1965 MR#: [id number] PHYS: Osmel Alvarez MD, PC DATE: 04/17/21 [...] inhalation dailyPatient was discharged in stable condition.DD: Jair Crowder, [employer] 05/13/21 20:16DT: DMAutumn 05/13/21 20:39DS: Jair Crowder, [facility] 05/18/21 11:18 2 Name Value Range Interpretation Code Description Data Maura rce(s) Supporting Document(s) ID Date Data Source [id number] 05/11/2021 03:07:00 [place] [address] PHONE: [phone] FAX: [phone] Name .................. : JUANITO Daniels Acct Number.................. : [id number] ROOM. ................. : MR Number ................... : [id number] Stay type ............. : O/P Discharge Date......... ... : 05/10/21 Admit Date ....... .. : 05/10/21 Admit Phys .................... : MILVIA JOYCE Date of ....... : 1965 Family Phys ................... : SEQUEIRA Phone .................. : [phone] Age ................................ : 56 Film# .................. .:[id number] Sex ................................. : F Unsigned transcriptions are preliminary reports and do not represent a medical or legal document PELVIC 47109 COMPLETE:05/10/21 11:12 [facility] [address] Reason for Exam: PELVIC PAIN PELVIC SONOGRAM, [...] MD , 05/11/21 15:07, KGG Transcribe Initials: [facility], Transcribe Date: 05/10/21 12:33, Dictation Date: Page 1 of 2 [facility] [address] [place] [address] PHONE: [phone] FAX: [phone] Name .................. : JUANITO Daniels Acct Number.................. : [id number] ROOM. ................. : MR Number ................... : [id number] Stay type ............. : O/P Discharge Date......... ... : 05/10/21 Admit Date ......... : 05/10/21 Admit Phys .................... : MILVIA JOYCE Date of ....... : 1965 Family Phys ................... : SEQUEIRA Phone .................. : [phone] Age ................................ : 56 Film# .................. .:[id number] Sex ................................. : F Unsigned transcriptions are preliminary reports and do not represent a medical or legal document PELVIC 28282 COMPLETE:05/10/21 11:12 [facility] [address] Reason for Exam: PELVIC PAIN Copy for: MILVIA PIZANO via fax Copy for: [address] [place] [address] REC Page 2 of 2 Name Value Range Interpretation Code Description Data Maura rce(s) Supporting Document(s) ID Date Data Source [id number] 05/11/2021 03:06:00 PM EDT [facility] [address] [place] [address] PHONE: [phone] FAX: [phone] Name .................. : JUANITO Daniels Acct Number.................. : [id number] ROOM. ................. : MR Number ................... : [id number] Stay type ............. : O/P Discharge Date......... ... : 05/10/21 Admit Date ....... .. : 05/10/21 Admit Phys .................... : MILVIA JOYCE Date of ....... : 1965 Family Phys ................... : REGINE GAIL Phone .................. : [phone] Age ................................ : 56 Film# .................. .:[id number] Sex ................................. : F Unsigned transcriptions are preliminary reports and do not represent a medical or legal document HIP BILAT W PELVIS 2 VIEWS 71025 COMPLETE:05/10/21 09:50 [facility] [address] Reason for Exam: SYMPLRYNIC PUBIS PAIN BILATERAL [...] for: MILVIA PIZANO via fax Copy for: [address] [place] [address] REC Page 1 of 1 Name Value Range Interpretation Code Description Data Maura rce(s) Supporting Document(s) ID Date Data Source [id number] 05/02/2021 08:11:00 [place] [address] RESPIRATORY CARE REPORT ==== ---------NAME------- NUMBER SEX AGE ADMIT DISC. XRAY# F/C CYNDY CHANTALE E [id number] F 55 05/01/21 05/02/21 [id number] BBF E/R DATE OF : 1965 M/R# [id number] PH#: [phone] TR- LOCATION: EMERGENCY DEPT EKG 19229 COMPLE TE:05/02/21 03:55 AJP 79231 EKG 16606 COMPLETE:05/02/21 03:55 AJP 86968 PHYSICIAN: WYATT Name Value Range Interpretation Code Description Data Maura rce(s) Supporting Document(s) ID Date Data Source [id number] 05/02/2021 01:21:00 [place] [address] PHONE: [phone] FAX: [phone] Name .................. : SOLOMON CHANTALE E Acct Number.................. : [id number] ROOM. ................. : -02 Number ................... : [id number] Stay type ............. : E/R Discharge Date......... ... : Admit Date ......... : 04/04 07/24 Admit Phys .................... : PRICILLAPHYLICIANETO Date of ....... : 1965 Family Phys ................... : REGINE GAIL Phone .................. : [phone] Age ................................ : 55 Film# .................. .:[id number] Sex ................................. : F Unsigned transcriptions are preliminary reports and do not represent a medical or legal document CHEST PORTABLE [id number] COMPLETE:05/01/21 21:04 DLA 02082 Reason(s): Palpitation PORTABLE CHEST X- RAY: INDICATION: [...] By Jimmy Ashby M.D. , 05/02/21 13:21, RIRobbie Transcribe Initials: REYES , Transcribe Date: 05/02/21 00:37, Dictation Date: Copy for: EMERGENCY DEPT via mode Copy for: 710 MED REC DISCHARGED Page 1 of 1 Name Value Range Interpretation Code Description Data Maura rce(s) Supporting Document(s) ID Date Data Source [id number] 05/02/2021 01:30:00 AM EDT [facility] [address] [place] [address] ---------NAME--------- NUMBER SEX AGE ADMIT DISC. XRAY# F/C TYPE JUANITO Daniels [id number] F 55 05/01/21 [id number] BBF E/R DATE OF : 1965 M/R# [id number] #: [id number] TR-02 LOCATION: EMERGENCY DEPT TRANSCRIBED: 05/02/21 1:[address] CTA CHEST NON-CORONARY W [id number] COMPLETED:05/02/21 17 DLA 94328 Reason(s): chest oain palpitation elevated d dimer PHYSICIAN: WYATT ========= R A D I O L O G Y R E P O R T PATIENT HISTORY:ACTUAL DOSE 947.6 mGy*cm chest pain palpitations elevated d dimer isovue [id number] [id number] March 2023 was givenPatient hx menopause. Verification of 2 patient identifiers performed.Time Out performed. type and amount of contrast used, correct body part and sideall verified prior to examination. Exam has been sent to [facility] - If further informationis needed, the number is . Report will be faxed to ED and/orXray. / O-MAR, SOFT TISSUE, O-MAR. Compare with non-O-MAR images (DICOM Hx)EXAM: CTA Chest with Intravenous Contrast for PE evaluationCLINICAL HISTORY:ACTUAL DOSE 947.6 mGy*cm chest pain palpitations elevated ddimer isovue 370 75cc [id number] March 2023 was given Patient hx menopause.Verification of 2 patient identifiers performed. Time Out performed. type andamount of contrast used, correct body part and side all verified prior toexamination. Exam has been sent to [facility] - If furtherinformation is needed, the number is . Report will be faxed to EDand/or Xray.TECHNIQUE: Axial CTA images of the chest with intravenous contrast using apulmonary embolism protocol. Multiplanar reconstructed images were created andreviewed. All CT scans at this facility use dose modulation, iterativereconstruction, and/or weight-based dosing when appropriate to reduce radiationdose to as low as reasonably achievable.CONTRAST:With; isovue 370 75cc March 2023 was administered withoutincident.COMPARISON: CT - CT [...] rce(s) Supporting Document(s) ID Date Data Source [id number] 05/01/2021 11:53:00 PM EDT [facility] Name Value Range Interpretation Code Description Data Maura rce(s) Supporting Document(s) [facility] COL[facility] yellow NORMAL: Yellow [facility] CLARITY clear NORMAL: Clear [facility] Specific gravity of Urine by Test strip 1.010 1.001 - 1.030 [facility] pH 6 5 - 9 [facility] al Glucose [Mass/volume] in Urine by Test strip NORM NORMAL: Negat [facility] Bilirubin.total [Presence] in Urine by Test strip NEG NORMAL: Negative [facility] Ketones [Presence] in Urine by Test strip NEG NORMAL: Negative [facility] Protein [Mass/volume] in Urine by Test strip [facility] Nitrite [Presence] in Urine by Test strip NEG NORMAL: Negative [facility] BLOOD NEG NORMAL: Negative [facility] LEUK EST NEG NORMAL: Negative [facility] Urobilinogen [Mass/volume] in Urine by Test strip NOR less lupe n 1.0 mg/dL [facility] MICROSCOPIC Not Indicate [facility] ID Date Data Source [id number] 05/01/2021 10:09:00 PM [facility] Value Range Interpretation Code Description Data Maura rce(s) Supporting Document(s) Thyrotropin [Units/volume] in Serum or Plasma by Detec tion limit <= 0.05 mIU/L 1.79 uIU/mL 0.47 - 5.01 [facility] ID Date Data Source [id number] 05/01/2021 09:56:00 PM T [facility] Value Range Interpretation Code Description Data Maura rce(s) Supporting Document(s) Fibrin D-dimer FEU [Mass/volume] in Platelet poor plasma 1.21 ug /mL 0.27 - 0.50 H [facility] ID Date Data Source [id number] 05/01/2021 10:11:00 PM T [facility] Value Range Interpretation Code Description Data Maura rce(s) Supporting Document(s) Magnesium [Mass/volume] in Serum or Plasma 1.6 MG/DL 1.7 - 2.2 L [facility] ID Date Data Source [id number] 05/01/2021 10:11:00 PM EDT [facility] Name Value Range Interpretation Code Description Data Maura rce(s) Supporting Document(s) COMPREHENSIVE METABOLIC PANEL [facility] COMPREHENSIVE METABOLIC PANEL Sodium [Moles/volume] in Serum or Plasma 140 mEq/L 134 - 153 [facility] Potassium [Moles/volume] in Serum or Plasma 3.7 mEq/L 3.6 - 5.0 [facility] Chloride [Moles/volume] in Serum or Plasma 102 mEq/L 98 - 107 [facility] Carbon dioxide, total [Moles/volume] in Serum or Plasma 30 MEQ/L 22 - 30 [facility] Glucose [Mass/volume] in Serum or Plasma 109 MG/DL 70 - 99 H [facility] BUN 10 MG/DL 7 - 21 [facility] Creatinine [Mass/volume] in Serum or Plasma 1.1 MG/DL 0.7 - 1.5 [facility] BUN/CREAT 9 8 - 27 [facility] al Protein [Mass/volume] in Serum or Plasma 6.0 G/DL 6.3 - 8.2 L [facility] Albumin [Mass/volume] in Serum or Plasma 3.1 G/DL 3.9 - 5.0 L [facility] Globulin [Mass/volume] in Serum by calculation 2.9 GM/DL 2.4 - 3.2 [facility] A/G RATIO 1.1 0.8 - 2.0 [facility] Calcium [Mass/volume] in Serum or Plasma 8.6 MG/DL 8.4 - 10.2 [facility] Bilirubin.total [Mass/volume] in Serum or Plasma <0.7 MG/DL 0.2 - 1.3 [facility] Alkaline phosphatase [Enzymatic activity/volume] in Serum or Plasma 92 U/L 38 - 126 [facility] Aspartate aminotransferase [Enzymatic activity/volume] in Serum or Plasma 26 U/L 5 - 40 [facility] Alanine aminotransferase [Enzymatic activity/volume] in Seru m or Plasma 24 U/L 7 - 56 [facility] Anion gap 3 in Serum or Plasma 8.0 mmol/L 8.0 - 16.0 [facility] AGE 55 yrs [facility] NON-AA GFR 55 mL/min [facility] willy AFR AMER GFR >60 mL/min [facility] Male GFR In [...] >32 mL/min Normal ID Date Data Source [id number] 05/01/2021 10:05:00 PM EDT [facility] Name Value Range Interpretation Code Description Data Maura rce(s) Supporting Document(s) CBC W/AUTOMATED DIFF [facility] COMPLETE BLOOD COUNT Leukocytes [#/volume] in Blood by Automated count 8.4 10^3/uL 4.2 - 1 1.0 [facility] Erythrocytes [#/volume] in Blood by Automated count 2.90 10^6/uL 4. 20 - 5.40 L [facility] Hemoglobin [Mass/volume] in Blood 9.8 g/dL 12.0 - 16.0 L [facility] Hematocrit [Volume Fraction] of Blood by Automated count 30.2 % 3 7.0 - 47.0 L [facility] Erythrocyte mean corpuscular volume [Entitic volume] b y Automated count 104.1 fL 81.0 - 101 H [facility] Erythrocyte mean corpuscular hemoglobin [Entitic mass] by Automated count 33.8 pg 27.0 - 34.0 [facility] Erythrocyte mean corpuscular hemoglobin concentration [Mass/volume] by Automated count 32.5 g/dL 31.0 - 36.0 [facility] Erythrocyte distribution width [Ratio] by Automated count 18.6 % 11.5 - 14.5 H [facility] Platelets [#/volume] in Blood by Automated count 375 10^3/uL 150 - 45 0 [facility] Platelet mean volume [Entitic volume] in Blood by Automated count 9.9 fL 7.4 - 10.4 [facility] Neutrophils/100 leukocytes in Blood by Automated count 63.7 % 37. 0 - 80.0 [facility] Lymphocytes/100 leukocytes in Blood by Manual count 11.3 % 25.0 - 40.0 L [facility] Monocytes/100 leukocytes in Blood by Automated count 20.6 % 3.0 - 8.0 H [facility] Eosinophils/100 leukocytes in Blood by Automated count 2.7 % 0.0 - 7.0 [facility] Basophils/100 leukocytes in Blood by Automated count 0.4 % 0.0 - 2.5 [facility] %IG 1.3 % 0.0 - 0.0 H [facility] %NRBC 0.0 % 0.0 - 0.0 [facility] al Neutrophils [#/volume] in Blood by Automated count 5.36 10^3/uL 2.00 - 6.90 [facility] Lymphocytes [#/volume] in Blood by Automated count 0.95 10^3/uL 0.60 - 3.40 [facility] Monocytes [#/volume] in Blood by Automated count 1.73 10^3/uL 0.00 - 0.90 H [facility] Eosinophils [#/volume] in Blood by Automated count 0.23 10^3/uL 0.00 - 0.70 [facility] Basophils [#/volume] in Blood by Automated count 0.03 10^3/uL 0.00 - 0.20 [facility] #IG 0.11 10^3/uL 0.00 - 0.10 H [facility] #NRBC 0.00 10^3/uL 0.00 - 0.00 [facility] ospital MANUAL DIFF SEE BELOW [facility] ital Segmented neutrophils/100 leukocytes in Blood by Manual count 62 % 37 - 80 [facility] %LYMPH 20 % 25 - 40 L [facility] %MONO 15 % 3 - 8 H [facility] %EOS 3 % 0 - 7 [facility] RBC MORPH NOT INDICATED [facility] ID Date Data Source [id number] 05/01/2021 09:29:00 PM EDT [facility] Name Value Range Interpretation Code Description Data Maura rce(s) Supporting Document(s) TROPONIN T 0.02 NG/ML 0.00 - 0.10 [facility]ital TROPONIN T0.1 ng/ml Recommended as the c linical threshold value forTroponin T. ID Date Data Source [id number] 04/30/2021 03:06:00 PM EDT [facility] ([facility], ) Name Value Range Interpretation Code Description Data Maura rce(s) Supporting Document(s) Gram Stain Laboratory test result Normal (applies to non-n umeric results) [facility] ([facility]) QUALITY: GOOD MODERATE WBCS FEW EPITHELIAL CELLS MODERATE GRAM POSITIVE COCCI IN PAIRS AND CHAINS FEW GRAM POSITIVE RODS Sputum Culture Laboratory test result Normal (applies to non-numeric results) [facility] ([facility]) <content>FULL REPORT IN LAB NOTES (eCW [...] <=1 S</content>
<content></content> ID Date Data Source [id number] 04/24/2021 10:48:00 AM EDT [facility] [address] [place] [address] PHONE: [phone] FAX: [phone] Name .................. : SOLOMON CHANTALE Daniels Acct Number.................. : [id number] ROOM. ................. : TR-03 Number ................... : [id number] Stay type ............. : E/R Discharge Date......... ... : 04/21/21 Admit Date ......... : 04/21/21 Admit Phys .................... : USMAN LOPEZ Date of ....... : 1965 Family Phys ................... : REGINE GAIL Phone .................. : [phone] Age ................................ : 55 Film# .................. .:[id number] Sex ................................. : F Unsigned transcriptions are preliminary reports and do not represent a medical or legal document CHEST PORTABLE [id number] COMPLETE:04/21/21 11:56 54134 Reason(s): COPD PORTABLE CHEST X-RAY: INDICATION: COPD. [...] Dictation Date: Copy for: EMERGENCY DEPT via [facility] Copy for: 710 MED REC DISCHARGED Page 1 of 1 Name Value Range Interpretation Code Description Data Maura rce(s) Supporting Document(s) ID Date Data Source [id number] 04/19/2021 09:17:00 [place] [address] PROGRESS NOTENAME: JUANITO Daniels ROOM#: [id number] OF : 1965 MR#: [id number] DATE: 04/17/21 OF SERVICE: 04/19/2021UBJECTIVE:Chantale Solomon was [...] globulin 2.1, A/G ratio 1.6,calcium 8.7. 1 [place] [address] PROGRESS NOTENAME: JUANITO Daniels ROOM#: [id number] OF : 1965 MR#: [id number] DATE: 04/17/21 /PLAN:The patient has the following [...] rce(s) Supporting Document(s) ID Date Data Source [id number] 04/18/2021 11:15:00 [place] [address] HISTORY AND PHYSICALNAME: JUANITO Daniels ROOM#: [id number] OF : 1965 MR#: [id number] PHYS: Osmel Alvarez MD, PC DATE: 04/17/21CHIEF [...] a historyof carcinoma left lung, goes to [facility] cancer [facility]. She is getting also [...] hypertension. She has been admitted for pneumonia [facility].PAST SURGICAL HISTORY: 1. Appendectomy. 2. Surgery dorsal spine. 1 [place] [address] HISTORY AND PHYSICALNAME: JUANITO Daniels ROOM#: [id number] OF : 1965 MR#: [id number] PHYS: Osmel Alvarez MD, PC DATE: 04/17/21 [...] the left lung.4. History of pneumonia. 2 [place] [address] HISTORY AND PHYSICALNAME: JUANITO Daniels ROOM#: [id number] OF : 1965 MR#: [id number] PHYS: Osmel Alvarez MD, PC DATE: . [...] fibrillation.DD: Osmel Alvarez MD, PC 04/18/21 09:29DT: [facility] 04/18/21 11:15DS: Osmel Alvarez MD, PC 04/23/21 08:33 3 Name Value Range Interpretation Code Description Data Maura rce(s) Supporting Document(s) ID Date Data Source [id number] 04/22/2021 10:11:00 [place] [address] RESPIRATORY CARE REPORT ==== ---------NAME------- NUMBER SEX AGE ADMIT DISC. XRAY# F/C CYNDY Daniels [id number] F 55 04/21/21 04/21/21 [id number] BBF E/R DATE OF : 1965 M/R# [id number] #: [id number] TR-03 LOCATION: EMERGENCY DEPT EKG [id number] COMP LETE:04/22/21 04:41 AJP [id number] PHYSICIAN: USMAN LOPEZ Name Value Range Interpretation Code Description Data Maura rce(s) Supporting Document(s) ID Date Data Source [id number] 04/21/2021 11:41:00 AM EDT [facility] 1 OrderSheet [facility] Emergency Department [address] [place] [address] Phone #: ext- [phone] 04/21/2021 11:25 Patient: [...] Physician;Troponin-T STAT 11:56 04/21/2021 11:59 Kody Ritchie cattle shipperFlorian Del Rosario Physician; [id number] STAT 11:56 04/21/2021 11:58 Tadeo Peck R.N. Physician;Urinalysis (Clean STAT 11:56 04/21/2021 12:33 BurnhamCatch) Tadeo Ritchie cattle shipperFlorian Del Rosario ER Physician; [id number] STAT 11:56 04/21/2021 11:58 Tadeo Peck R.N. Physician;Magnesium STAT 11:56 04/21/2021 11:58 Tadeo Peck R.N. Physician;DIAGNOSTIC STUDY ORDERSOrder Description Priority Entered Acknowledged InitialedChest Portable 1 STAT 11:56 04/21/2021 12:14 Cisco,Marysol Jacob R.N.(Oxygen?(No)) Physician; Reason for Study: COPDMEDICATION/IV/DRIP/FLUID ORDERSOrder Description Priority Entered Acknowledged Initialed 2 OrderSheet [facility] Emergency Department [address] [place] [address] Phone #: ext- [phone] 04/21/2021 11:25 Patient: [...] rce(s) Supporting Document(s) ID Date Data Source [id number] 04/21/2021 11:41:00 AM EDT [facility] 1 Medication Reconciliation Report [facility] Emergency Department [address] [place] [address] Phone #: ext- [phone] 04/21/2021 11:25 Patient: [...] administered: 14:47 04/21/2021 2 Medication Reconciliation Report [facility] Emergency Department [address] [place] [address] Phone #: ext- [phone] 04/21/2021 11:25 Patient: CHANTALE SOLOMON Sex: F : 1965 Age: 55yThe following Medications were prescribed to the patient:metoprolol tartrate 25 mg tablet Take 1/2 tablet twice a day for 30 days -- Dispense 30 tablet. Refills: 0.Substitution permitted.[id number] [address] ; [place], [place] [id number]. . -- Tadeo Ritchie, Physician Name Value Range Interpretation Code Description Data Maura rce(s) Supporting Document(s) ID Date Data Source [id number] 04/21/2021 11:41:00 AM EDT [facility] 1 Medication Administration Record [facility] Emergency Department [address] [place] [address] Phone #: ext- [phone] 04/21/2021 11:25 Patient: CHANTALE SOLOMON Sex: F : 1965 Age: 55yWeight: 79.3 kgHeight/Length: 60 inBMI: 34.1ALLERGIES: Penicillins, Seafood Date/Time Medication Administered Medication OrderedStart MAGNESIUM SULFATE [IVPB] Magnesium Sulfate IVPB 1 gm12:52 04/21/2021 Dose: 1 gm IVPB (Verify Strength in Sarah Reardon Rachel R.NKellen Rate: 50 mL/hr over 30 minute(s) ALERT MEDICATION, NOW)---- Dispensed: 25 mL bagStop Site: #1 left AC13:30 04/21/2021Nidia Peck R.NKellenGiven METOPROLOL [PO] Metoprolol PO 12.5mg (NOW x1)14:47 04/21/2021 Dose: 12.5 mg Nidia Sanders R.N. Name Value Range Interpretation Code Description Data Maura rce(s) Supporting Document(s) ID Date Data Source [id number] 04/21/2021 11:41:00 AM EDT [facility] 1 General Instructions [facility] Emergency Department [address] [place] [address] Phone #: ext- [phone] 04/21/2021 11:25 Patient: CHANTALE SOLOMON Sex: F [...] Dispense 30 tablet. Refills: 0.Substitution permitted.Pharmacy - [id number] - [address] [place], [place] [id number]. FaxNumber: [phone].Understanding of the discharge instructions verbalized by patient.Follow-up with: Osmel Alvarez MD, Cardiology, , [address] [place] [address], [facility] Follow up as scheduled. Reason for referral: evaluation. Summary of care provided to patient via paper. ADDITIONAL INFORMATIONAbout Arrhythmias 2 General Instructions [facility] Emergency Department [address] [place] [address] Phone #: ext- [phone] 04/21/2021 11:25 Patient: [...] Chest pain or pressure 3 General Instructions [facility] Emergency Department [address] [place] [address] Phone #: ext- [phone] 04/21/2021 11:25 Patient: [...] Obesity Congenital heart disease 4 General Instructions [facility] Emergency Department [address] [place] [address] Phone #: ext- [phone] 04/21/2021 11:25 Patient: [...] help. Tell your doctor about any prescription, [id number], or herbal medicines you take. These may be affecting your heart rhythm.Follow-up careFollow up with your healthcare provider, or as advised. If a Holter monitor has been recommended,contact the metal filer you have been referred to as soon as you can vegetable picker the device. Otheroutpatient tests may also be [...] lightheaded, faint, or dizzy 5 General Instructions [facility] Emergency Department [address] [place] [address] Phone #: ext- [phone] 04/21/2021 11:25 Patient: CHANTALE SOLOMON Sex: F [...] getting help while trying to find them. [employer] a division [employer]. [address] [place] [address]. All rights reserved. This information is not intended as asubstitute for professional medical care. Always follow your healthcare professional's instructions. You have been given the following additional information: About Arrhythmias(Electronically signed by Tadeo Ritchie, Physician 04/21/2021 15:08) Name Value Range Interpretation Code Description Data Maura rce(s) Supporting Document(s) ID Date Data Source [id number] 04/21/2021 11:41:00 AM EDT [facility] 1 Clinical Report - Nurses [facility] Emergency Department [address] [place] [address] Phone #: ext- [phone] 04/21/2021 11:25 Patient: CHANTALE SOLOMON Sex: F : 1965 Age: 55yTRIAGE( pt came to door stating "I am in Afib", was seen her Friday and admitted discharged yesterday, statesher hr was up to 160 via her pulse out,, states she is short of breath and racing heart, and has a feeling inher thraot).Acuity: LEVEL 3.Alert.This started today. Onset. (10 minutes ago).Treatment DRAMATIC READER:None.SEPSIS SCREEN: SIRS SCREEN NEGATIVE. SEPSIS SCREEN NEGATIVE. [...] Venous Thrombosis. 2 Clinical Report - Nurses [facility] Emergency Department [address] [place] [address] Phone #: ext- [phone] 04/21/2021 11:25 [id number] Sex: F : 1965 Age: 55yCOPD - [...] had thoughts 3 Clinical Report - Nurses [facility] Emergency Department [address] [place] [address] Phone #: ext- [phone] 04/21/2021 11:25 Patient: CHANTALE SOLOMON Sex: F [...] and COPD in family). --12:02 04/21/21 Tadeo Ritchie Physician. Interventions Identification band on patient. To [...] R.N.NURSING PROGRESS NOTESOxygen administered at 2 liters. hospital monitor and NIBP monitor placed on patient. Patient gowned.Reassurance given. Two patient identifiers checked. Call light placed in reach. Side rails up x 2. Bedplaced in lowest position. Brakes of bed on. Patient ready for evaluation. --11:31 04/21/21 Orin Pierson R.N. EKG time: (11:30 04/21/2021). EKG was performed by a tech and shown to the ED physician. --11:39 04/21/21 [place] cattle shipper, MEG Du Tech1 12:04 04/21/2021 Site #1 started via IV in the left antecubital space with an 20g angiocath; one attempt. Blood drawn: rainbow set and green tube(s). Saline lock flushed with 10 mL saline. --12:05 04/21/21 4 Clinical Report - Nurses [facility] Emergency Department [address] [place] [address] Phone #: ext- [phone] 04/21/2021 11:25 Patient: CHANTALE SOLOMON Sex: F [...] Catheter intact. Manual pressure and bandage applied. --15:04/21/21 Nidia Peck R.N. Condition at departure: stable. No learning barriers present. Discharge instructions provided and reviewed with the patient. Reviewed medication(s) side effects, precautions, dosing and course information. Prescription(s) sent electronically to pharmacy. 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 Patient verbalized understanding. Written instructions provided in Estonian. The patient was discharged by the physician. [...] Peck R.N. 5 Clinical Report - Nurses [facility] Emergency Department [address] [place] [address] Phone #: ext- [phone] 04/21/2021 11:25 Patient: CHANTALE SOLOMON Sex: F : 1965 Age: 55y Name Value Range Interpretation Code Description Data Maura rce(s) Supporting Document(s) ID Date Data Source [id number] 04/21/2021 11:41:00 AM EDT [facility] 1 Clinical Report - Physicians/Mid Levels [facility] Emergency Department [address] [place] [address] Phone #: ext- [phone] 04/21/2021 11:25 Patient: [...] muscle spasms. ( Tightness in throat.). Treatment DRAMATIC READER: (Took regular medications). Similar symptoms previously. Recent [...] inspection. 2 Clinical Report - Physicians/Mid Levels [facility] Emergency Department [address] [place] [address] Phone #: ext- [phone] 04/21/2021 11:25 Patient: [...] 8) 3 Clinical Report - Physicians/Mid Levels [facility] Emergency Department [address] [place] [address] Phone #: ext- [phone] 04/21/2021 11:25 Patient: [...] Male GFR Interprentation 20-49 yrs >60 mL/min [id number] yrs >56 mL/min Normal 60-69 yrs >49 mL/min Normal 70-79yrs>42 mL/min Normal 80 and above >35 mL/min Normal Female GFRInterpretation 20-39 yrs >60 mL/min Normal 40-49 yrs >58 mL/minNormal 50-59 yrs >51 mL/min Normal 60-69 yrs >45 mL/min Rezdnq91-72 yrs >39 mL/min Normal 80 and above >32 mL/min NormalTroponin-T: (SARAH: 04/21/2021 11:50) ( MsgRcvd 04/21/2021 12:26) Final results Test Result Flag [...] 125) 4 Clinical Report - Physicians/Mid Levels [facility] Emergency Department [address] [place] [address] Phone #: ext- [phone] 04/21/2021 11:25 Patient: [...] with Jair Johns for Dr Alvarez her metal filer.recommends Iv Diltiazem.). 12:32 Apr 21 2021. (Patient [...] day. 5 Clinical Report - Physicians/Mid Levels [facility] Emergency Department [address] [place] [address] Phone #: ext- [phone] 04/21/2021 11:25 Patient: CHANTALE SOLOMON Sex: F : 1965 Age: 55y Spiriva HandiHaler Inhalation : 2 puffs daily. Xarelto Oral : Tablet 10 mg, 1 tablet daily. Folic Acid Oral : Tablet 800 mcg, 1 tablet daily. Magnesium Oral : 1000mg daily. Prescription Medications: metoprolol tartrate 25 mg tablet Take 1/2 tablet twice a day for 30 days -- Dispense 30 tablet. Refills: 0. Substitution permitted. [id number] - [address] [place], [place] [phone]. FaxNumber: . Understanding of the discharge instructions verbalized by patient. Follow- up with: Osmel Alvarez MD, Cardiology, , [address] [place] [address], [id number] Follow up as scheduled. Reason for referral: evaluation. Summary of care provided to patient via paper.(Electronically signed by Tadeo Ritchie, Physician 04/21/2021 15:08) Name Value Range Interpretation Code Description Data Maura rce(s) Supporting Document(s) ID Date Data Source [id number] 04/21/2021 02:37:00 PM EDT [facility] Name Value Range Interpretation Code Description Data Maura rce(s) Supporting Document(s) [facility] SOURCE Clean Catch [facility] ital COLOR yellow NORMAL: Yellow [facility] CLARITY clear NORMAL: Clear [facility] Ho spital Specific gravity of Urine by Test strip 1.005 1.001 - 1.030 [facility] pH 7 5 - 9 [facility] Glucose [Mass/volume] in Urine by Test strip NORM [facility] Bil[facility].total [Presence] in Urine by Test strip NEG NORMAL: Negative [facility] Ketones [Presence] in Urine by Test strip NEG NORMAL: Negative [facility] Protein [Mass/volume] in Urine by Test strip 30 NORMAL: Negat [facility] Nitrite [Presence] in Urine by Test strip NEG NORMAL: Negative [facility] BLOOD NEG NORMAL: Negative [facility] Leukocyte esterase [Presence] in Urine by Test strip NEG SHAUNA L: Negative [facility] Urobilinogen [Mass/volume] in Urine by Test strip NOR less lupe n 1.0 mg/dL [facility] MICROSCOPIC See Below [facility] ital WBC 0 - 1 NORMAL: NONE SEEN [facility] EPITHELIAL FEW NORMAL: NONE SEEN [facility] Bacteria [Presence] in Urine sediment by Light microscopy Tr david NORMAL: NONE SEEN [facility] ID Date Data Source [id number] 04/21/2021 12:41:00 PM EDT [facility] Name Value Range Interpretation Code Description Data Maura rce(s) Supporting Document(s) BNP 1163 PG/ML 0 - 125 [facility] ID Date Data Source [id number] 04/21/2021 12:36:00 PM EDT [facility] Name Value Range Interpretation Code Description Data Maura rce(s) Supporting Document(s) Thyrotropin [Units/volume] in Serum or Plasma by Detec tion limit <= 0.05 mIU/L 1.34 uIU/mL 0.47 - 5.01 [facility] ID Date Data Source [id number] 04/21/2021 12:31:00 PM EDT [facility] Name Value Range Interpretation Code Description Data Maura rce(s) Supporting Document(s) CBC W/AUTOMATED DIFF [facility] COMPLETE BLOOD COUNT Leukocytes [#/volume] in Blood by Automated count 7.8 10^3/uL 4.2 - 1 1.0 [facility] Erythrocytes [#/volume] in Blood by Automated count 3.09 10^6/uL 4. 20 - 5.40 L [facility] Hemoglobin [Mass/volume] in Blood 10.4 g/dL 12.0 - 16.0 L [facility] Hematocrit [Volume Fraction] of Blood by Automated count 31.3 % 3 7.0 - 47.0 L [facility] Erythrocyte mean corpuscular volume [Entitic volume] b y Automated count 101.3 fL 81.0 - 101 H [facility] Erythrocyte mean corpuscular hemoglobin [Entitic mass] by Automated count 33.7 pg 27.0 - 34.0 [facility] Erythrocyte mean corpuscular hemoglobin concentration [Mass/volume] by Automated count 33.2 g/dL 31.0 - 36.0 [facility] Erythrocyte distribution width [Ratio] by Automated count 18.0 % 11.5 - 14.5 H [facility] Platelets [#/volume] in Blood by Automated count 190 10^3/uL 150 - 45 0 [facility] Platelet mean volume [Entitic volume] in Blood by Automated count 9.6 fL 7.4 - 10.4 [facility] Neutrophils/100 leukocytes in Blood by Automated count 72.7 % 37. 0 - 80.0 [facility] Lymphocytes/100 leukocytes in Blood by Manual count 9.3 % 25.0 - 40.0 L [facility] Monocytes/100 leukocytes in Blood by Automated count 14.0 % 3.0 - 8.0 H [facility] Eosinophils/100 leukocytes in Blood by Automated count 1.3 % 0.0 - 7.0 [facility] Basophils/100 leukocytes in Blood by Automated count 0.3 % 0.0 - 2.5 [facility] %IG 2.4 % 0.0 - 0.0 H [facility] al %NRBC 0.0 % 0.0 - 0.0 [facility] al Neutrophils [#/volume] in Blood by Automated count 5.65 10^3/uL 2.00 - 6.90 [facility] Lymphocytes [#/volume] in Blood by Automated count 0.72 10^3/uL 0.60 - 3.40 [facility] Monocytes [#/volume] in Blood by Automated count 1.09 10^3/uL 0.00 - 0.90 H [facility] Eosinophils [#/volume] in Blood by Automated count 0.10 10^3/uL 0.00 - 0.70 [facility] Basophils [#/volume] in Blood by Automated count 0.02 10^3/uL 0.00 - 0.20 [facility] #IG 0.19 10^3/uL 0.00 - 0.10 H [facility] #NRBC 0.00 10^3/uL 0.00 - 0.00 [facility] MANUAL DIFF SEE BELOW [facility] Segmented neutrophils/100 leukocytes in Blood by Manual count 78 % 37 - 80 [facility] %LYMPH 16 % 25 - 40 L [facility] al %MONO 6 % 3 - 8 [facility] al RBC MORPH SEE BELOW [facility] al Anisocytosis [Presence] in Blood by Light microscopy 1+ SHAUNA L: NONE SEEN A [facility] Macrocytes [Presence] in Blood by Light microscopy 1+ NORMAL: NONE SEEN A [facility] { SICKLE CELL (NORMAL: NONE SEEN ) Platelet adequacy [Presence] in Blood by Light microscopy NORMAL NORMAL: NORMAL [facility] COMMENT: ID Date Data Source [id number] 04/21/2021 12:29:00 PM EDT [facility] Name Value Range Interpretation Code Description Data Maura rce(s) Supporting Document(s) Magnesium [Mass/volume] in Serum or Plasma 1.5 MG/DL 1.7 - 2.2 L [facility] ID Date Data Source [id number] 04/21/2021 12:29:00 PM EDT [facility] Name Value Range Interpretation Code Description Data Maura rce(s) Supporting Document(s) COMPREHENSIVE METABOLIC PANEL [facility] COMPREHENSIVE METABOLIC PANEL Sodium [Moles/volume] in Serum or Plasma 134 mEq/L 134 - 153 [facility] Potassium [Moles/volume] in Serum or Plasma 4.1 mEq/L 3.6 - 5.0 [facility] Chloride [Moles/volume] in Serum or Plasma 95 mEq/L 98 - 107 L [facility] Carbon dioxide, total [Moles/volume] in Serum or Plasma 28 MEQ/L 22 - 30 [facility] Glucose [Mass/volume] in Serum or Plasma 130 MG/DL 70 - 99 H [facility] BUN 13 MG/DL 7 - 21 [facility] Creatinine [Mass/volume] in Serum or Plasma 0.8 MG/DL 0.7 - 1.5 [facility] BUN/CREAT 16 8 - 27 [facility] Protein [Mass/volume] in Serum or Plasma 6.7 G/DL 6.3 - 8.2 [facility] Albumin [Mass/volume] in Serum or Plasma 3.8 G/DL 3.9 - 5.0 L [facility] Globulin [Mass/volume] in Serum by calculation 2.9 GM/DL 2.4 - 3.2 [facility] A/G RATIO 1.3 0.8 - 2.0 [facility] Calcium [Mass/volume] in Serum or Plasma 9.2 MG/DL 8.4 - 10.2 [facility] Bilirubin.total [Mass/volume] in Serum or Plasma <0.7 MG/DL 0.2 - 1.3 [facility] Alkaline phosphatase [Enzymatic activity/volume] in Serum or Plasma 161 U/L 38 - 126 H [facility] Aspartate aminotransferase [Enzymatic activity/volume] in Serum or Plasma 47 U/L 5 - 40 H [facility] Alanine aminotransferase [Enzymatic activity/volume] in Seru m or Plasma 35 U/L 7 - 56 [facility] Anion gap 3 in Serum or Plasma 11.0 mmol/L 8.0 - 16.0 [facility] AGE 55 yrs [facility] al NON-AA GFR >60 mL/min [facility] ital AFR AMER GFR >60 mL/min [facility] spital Male GFR In [...] >32 mL/min Normal ID Date Data Source [id number] 04/21/2021 12:26:00 PM EDT [facility] Name Value Range Interpretation Code Description Data Maura rce(s) Supporting Document(s) TROPONIN T <0.01 NG/ML 0.00 - 0.10 [facility] ospital TROPONIN T0.1 ng/ml Recommended as the c linical threshold value forTroponin T. ID Date Data Source [id number] 04/20/2021 05:01:00 AM EDT [facility] (Osmel Alvarez MD) Name Value Range Interpretation Code Description Data Maura rce(s) Supporting Document(s) Magnesium [Mass/volume] in Serum or Plasma 1.7 mg/dL 1.7-2.2 [facility] (Osmel Alvarez MD) can run on todays blood ID Date Data Source [id number] 04/20/2021 05:01:00 AM EDT [facility] (Osmel Alvarez [...] >32 mL/min Normal ID Date Data Source [id number] 04/20/2021 05:01:00 AM EDT [facility] (Osmel Alvarez [...] (navigational concept) 32.7 g/dL 31.0-36.0 [facility] (Osmel Alvarze MD) Laboratory test finding (navigational concept) 18.2 [...] Alvarez MD) COMMENT: ID Date Data Source [id number] 04/20/2021 09:24:00 AM EDT [facility] Name Value Range Interpretation Code Description Data Maura rce(s) Supporting Document(s) Magnesium [Mass/volume] in Serum or Plasma 1.7 MG/DL 1.7 - 2.2 [facility] ID Date Data Source [id number] 04/20/2021 08:33:00 AM EDT [facility] Name Value Range Interpretation Code Description Data Maura rce(s) Supporting Document(s) COMPREHENSIVE METABOLIC PANEL [facility] COMPREHENSIVE METABOLIC PANEL Sodium [Moles/volume] in Serum or Plasma 138 mEq/L 134 - 153 [facility] Potassium [Moles/volume] in Serum or Plasma 4.4 mEq/L 3.6 - 5.0 [facility] Chloride [Moles/volume] in Serum or Plasma 102 mEq/L 98 - 107 [facility] Carbon dioxide, total [Moles/volume] in Serum or Plasma 28 MEQ/L 22 - 30 [facility] Glucose [Mass/volume] in Serum or Plasma 107 MG/DL 70 - 99 H [facility] BUN 10 MG/DL 7 - 21 [facility] Creatinine [Mass/volume] in Serum or Plasma 0.7 MG/DL 0.7 - 1.5 [facility] BUN/CREAT 14 8 - 27 [facility] Protein [Mass/volume] in Serum or Plasma 5.4 G/DL 6.3 - 8.2 L [facility] Albumin [Mass/volume] in Serum or Plasma 3.2 G/DL 3.9 - 5.0 L [facility] Globulin [Mass/volume] in Serum by calculation 2.2 GM/DL 2.4 - 3.2 L [facility] A/G RATIO 1.5 0.8 - 2.0 [facility] Calcium [Mass/volume] in Serum or Plasma 8.6 MG/DL 8.4 - 10.2 [facility] Bilirubin.total [Mass/volume] in Serum or Plasma <0.7 MG/DL 0.2 - 1.3 [facility] Alkaline phosphatase [Enzymatic activity/volume] in Serum or Plasma 109 U/L 38 - 126 [facility] Aspartate aminotransferase [Enzymatic activity/volume] in Serum or Plasma 26 U/L 5 - 40 [facility] Alanine aminotransferase [Enzymatic activity/volume] in Seru m or Plasma 20 U/L 7 - 56 [facility] Anion gap 3 in Serum or Plasma 8.0 mmol/L 8.0 - 16.0 [facility] AGE 55 yrs [facility] NON-AA GFR >60 mL/min [facility] ital AFR AMER GFR >60 mL/min [facility]ital Male GFR In [...] >32 mL/min Normal ID Date Data Source [id number] 04/20/2021 07:00:00 AM EDT [facility] Name Value Range Interpretation Code Description Data Maura rce(s) Supporting Document(s) CBC W/AUTOMATED DIFF [facility] COMPLETE BLOOD COUNT Leukocytes [#/volume] in Blood by Automated count 5.9 10^3/uL 4.2 - 1 1.0 [facility] Erythrocytes [#/volume] in Blood by Automated count 2.71 10^6/uL 4. 20 - 5.40 L [facility] Hemoglobin [Mass/volume] in Blood 9.1 g/dL 12.0 - 16.0 L [facility] Hematocrit [Volume Fraction] of Blood by Automated count 27.8 % 3 7.0 - 47.0 L [facility] Erythrocyte mean corpuscular volume [Entitic volume] b y Automated count 102.6 fL 81.0 - 101 H [facility] Erythrocyte mean corpuscular hemoglobin [Entitic mass] by Automated count 33.6 pg 27.0 - 34.0 [facility] Erythrocyte mean corpuscular hemoglobin concentration [Mass/volume] by Automated count 32.7 g/dL 31.0 - 36.0 [facility] Erythrocyte distribution width [Ratio] by Automated count 18.2 % 11.5 - 14.5 H [facility] Platelets [#/volume] in Blood by Automated count 166 10^3/uL 150 - 45 0 [facility] Platelet mean volume [Entitic volume] in Blood by Automated count 9.1 fL 7.4 - 10.4 [facility] Neutrophils/100 leukocytes in Blood by Automated count 80.6 % 37. 0 - 80.0 H [facility] Lymphocytes/100 leukocytes in Blood by Manual count 4.9 % 25.0 - 40.0 L [facility] Monocytes/100 leukocytes in Blood by Automated count 10.8 % 3.0 - 8.0 H [facility] Eosinophils/100 leukocytes in Blood by Automated count 2.5 % 0.0 - 7.0 [facility] Basophils/100 leukocytes in Blood by Automated count 0.2 % 0.0 - 2.5 [facility] %IG 1.0 % 0.0 - 0.0 H [facility] %NRBC 0.0 % 0.0 - 0.0 [facility] Neutrophils [#/volume] in Blood by Automated count 4.77 10^3/uL 2.00 - 6.90 [facility] Lymphocytes [#/volume] in Blood by Automated count 0.29 10^3/uL 0.60 - 3.40 L [facility] Monocytes [#/volume] in Blood by Automated count 0.64 10^3/uL 0.00 - 0.90 [facility] Eosinophils [#/volume] in Blood by Automated count 0.15 10^3/uL 0.00 - 0.70 [facility] Basophils [#/volume] in Blood by Automated count 0.01 10^3/uL 0.00 - 0.20 [facility] #IG 0.06 10^3/uL 0.00 - 0.10 [facility] #NRBC 0.00 10^3/uL 0.00 - 0.00 [facility] MANUAL DIFF SEE BELOW [facility] ital Segmented neutrophils/100 leukocytes in Blood by Manual count 87 % 37 - 80 H [facility] %LYMPH 2 % 25 - 40 L [facility] al %MONO 9 % 3 - 8 H [facility] al %EOS 2 % 0 - 7 [facility] al RBC MORPH SEE BELOW [facility] al Anisocytosis [Presence] in Blood by Light microscopy 1+ SHAUNA L: NONE SEEN A [facility] Macrocytes [Presence] in Blood by Light microscopy 1+ NORMAL: NONE SEEN A [facility] Poikilocytosis [Presence] in Blood by Light microscopy 1+ NOR MAL: NONE SEEN A [facility] { SICKLE CELL (NORMAL: NONE SEEN ) Platelet adequacy [Presence] in Blood by Light microscopy NORMAL NORMAL: NORMAL [facility] COMMENT: ID Date Data Source [id number] 04/19/2021 12:39:00 PM EDT [facility] [address] [place] [address] RESPIRATORY CARE REPORT ==== ---------NAME------- NUMBER SEX AGE ADMIT DISC. XRAY# F/C CYNDY Daniels [id number] F [id number] 04/17/21 [id number] BBF O/P DATE OF : 1965 M/R# [id number] #: [id number] CCU1 LOCATION: EMERGENCY DEPT [facility] [address] COMPL ETE:04/19/21 07:[address] [place] [address] PHYSICIAN: KIM MENDEZ Name Value Range Interpretation Code Description Data Maura rce(s) Supporting Document(s) ID Date Data Source [id number] 04/19/2021 05:50:00 AM EDT [facility] (Osmel Alvarez [...] (Osmel Alvarez MD) ID Date Data Source [id number] 04/19/2021 05:50:00 AM EDT [facility] (Osmel Alvarez [...] >32 mL/min Normal ID Date Data Source [id number] 04/19/2021 05:50:00 AM EDT [facility] (Osmel Alvarez MD) Name Value Range Interpretation Code Description Data Maura rce(s) Supporting Document(s) Laboratory test finding (navigational concept) Laboratory test result [facility] (Osmel Alvarez MD) COMPLETE BLOOD COUNT Laboratory [...] (Osmel Alvarez MD) ID Date Data Source [id number] 04/19/2021 10:18:00 AM EDT [facility] Value Range Interpretation Code Description Data Maura rce(s) Supporting Document(s) Iron [Mass/volume] in Serum or Plasma 45 UG/DL 42 - 135 [facility] ID Date Data Source [id number] 04/19/2021 08:06:00 AM EDT [facility] Value Range Interpretation Code Description Data Maura rce(s) Supporting Document(s) BNP 692 PG/ML 0 - 125 H [facility] ID Date Data Source [id number] 04/19/2021 08:06:00 AM EDT [facility] Value Range Interpretation Code Description Data Maura rce(s) Supporting Document(s) Magnesium [Mass/volume] in Serum or Plasma 1.5 MG/DL 1.7 - 2.2 L [facility] ID Date Data Source [id number] 04/19/2021 08:06:00 AM EDT [facility] Name Value Range Interpretation Code Description Data Maura rce(s) Supporting Document(s) COMPREHENSIVE METABOLIC PANEL [facility] COMPREHENSIVE METABOLIC PANEL Sodium [Moles/volume] in Serum or Plasma 136 mEq/L 134 - 153 [facility] Potassium [Moles/volume] in Serum or Plasma 4.3 mEq/L 3.6 - 5.0 [facility] Chloride [Moles/volume] in Serum or Plasma 101 mEq/L 98 - 107 [facility] Carbon dioxide, total [Moles/volume] in Serum or Plasma 27 MEQ/L 22 - 30 [facility] Glucose [Mass/volume] in Serum or Plasma 108 MG/DL 70 - 99 H [facility] BUN 13 MG/DL 7 - 21 [facility] al Creatinine [Mass/volume] in Serum or Plasma 0.8 MG/DL 0.7 - 1.5 [facility] BUN/CREAT 16 8 - 27 [facility] al Protein [Mass/volume] in Serum or Plasma 5.4 G/DL 6.3 - 8.2 L [facility] Albumin [Mass/volume] in Serum or Plasma 3.3 G/DL 3.9 - 5.0 L [facility] Globulin [Mass/volume] in Serum by calculation 2.1 GM/DL 2.4 - 3.2 L [facility] A/G RATIO 1.6 0.8 - 2.0 [facility] Calcium [Mass/volume] in Serum or Plasma 8.7 MG/DL 8.4 - 10.2 [facility] Bilirubin.total [Mass/volume] in Serum or Plasma <0.7 MG/DL 0.2 - 1.3 [facility] Alkaline phosphatase [Enzymatic activity/volume] in Serum or Plasma 90 U/L 38 - 126 [facility] Aspartate aminotransferase [Enzymatic activity/volume] in Serum or Plasma 18 U/L 5 - 40 [facility] Alanine aminotransferase [Enzymatic activity/volume] in Seru m or Plasma 16 U/L 7 - 56 [facility] Anion gap 3 in Serum or Plasma 8.0 mmol/L 8.0 - 16.0 [facility] AGE 55 yrs [facility] NON-AA GFR >60 mL/min [facility] ital AFR AMER GFR >60 mL/min [facility] Ho spital Male GFR In [...] >32 mL/min Normal ID Date Data Source [id number] 04/19/2021 06:05:00 AM EDT [facility] Name Value Range Interpretation Code Description Data Maura rce(s) Supporting Document(s) CBC W/AUTOMATED DIFF [facility] COMPLETE BLOOD COUNT Leukocytes [#/volume] in Blood by Automated count 7.3 10^3/uL 4.2 - 1 1.0 [facility] Erythrocytes [#/volume] in Blood by Automated count 2.79 10^6/uL 4. 20 - 5.40 L [facility] Hemoglobin [Mass/volume] in Blood 9.4 g/dL 12.0 - 16.0 L [facility] Hematocrit [Volume Fraction] of Blood by Automated count 28.4 % 3 7.0 - 47.0 L [facility] Erythrocyte mean corpuscular volume [Entitic volume] b y Automated count 101.8 fL 81.0 - 101 H [facility] Erythrocyte mean corpuscular hemoglobin [Entitic mass] by Automated count 33.7 pg 27.0 - 34.0 [facility] Erythrocyte mean corpuscular hemoglobin concentration [Mass/volume] by Automated count 33.1 g/dL 31.0 - 36.0 [facility] Erythrocyte distribution width [Ratio] by Automated count 18.3 % 11.5 - 14.5 H [facility] Platelets [#/volume] in Blood by Automated count 193 10^3/uL 150 - 45 0 [facility] Platelet mean volume [Entitic volume] in Blood by Automated count 8.8 fL 7.4 - 10.4 [facility] Neutrophils/100 leukocytes in Blood by Automated count 85.9 % 37. 0 - 80.0 H [facility] Lymphocytes/100 leukocytes in Blood by Manual count 6.5 % 25.0 - 40.0 L [facility] Monocytes/100 leukocytes in Blood by Automated count 4.7 % 3.0 - 8.0 [facility] Eosinophils/100 leukocytes in Blood by Automated count 2.2 % 0.0 - 7.0 [facility] Basophils/100 leukocytes in Blood by Automated count 0.3 % 0.0 - 2.5 [facility] %IG 0.4 % 0.0 - 0.0 [facility] %NRBC 0.0 % 0.0 - 0.0 [facility] al Neutrophils [#/volume] in Blood by Automated count 6.25 10^3/uL 2.00 - 6.90 [facility] Lymphocytes [#/volume] in Blood by Automated count 0.47 10^3/uL 0.60 - 3.40 L [facility] Monocytes [#/volume] in Blood by Automated count 0.34 10^3/uL 0.00 - 0.90 [facility] Eosinophils [#/volume] in Blood by Automated count 0.16 10^3/uL 0.00 - 0.70 [facility] Basophils [#/volume] in Blood by Automated count 0.02 10^3/uL 0.00 - 0.20 [facility] #IG 0.03 10^3/uL 0.00 - 0.10 [facility] ospital #NRBC 0.00 10^3/uL 0.00 - 0.00 [facility] ospital MANUAL DIFF NOT INDICATED [facility] RBC MORPH NOT INDICATED [facility] spital ID Date Data Source [id number] 04/18/2021 11:21:00 AM EDT [facility] [address] [place] [address] PHONE: [phone] FAX: [phone] Name .................. : JUANITO Daniels Acct Number.................. : [id number] ROOM. ................. : [place]- MR Number ................... : [id number] Stay type ............. : E/R Discharge Date......... ... : Admit Date ......... : 04/17/21 Admit Phys .................... : HEATHERCO Date of ....... : 1965 Family Phys ................... : REGINE GAIL Phone .................. : [phone] Age ................................ : 55 Film# .................. .:[id number] Sex ................................. : F Unsigned transcriptions are preliminary reports and do not represent a medical or legal document CHEST PORTABLE [id number] COMPLETE:04/17/21 18:28 52820 Reason(s): rapid heart rate PORTABLE CHEST X-RAY: [...] By Jimmy Ashby M.D. , 04/18/21 11:21, [place] Transcribe Initials: Scar CHAMBERS ranscribe Date: 04/17/21 20:51, Dictation Date: Copy for: EMERGENCY DEPT via modem Copy for: 710 MED REC DISCHARGED Page 1 of 1 Name Value Range Interpretation Code Description Data Maura rce(s) Supporting Document(s) ID Date Data Source [id number] 04/18/2021 07:10:00 PM EDT [address] [address] RESPIRATORY CARE REPORT ==== ---------NAME------- NUMBER SEX AGE ADMIT DISC. XRAY# F/C CYNDY Daniels [id number] F [id number] 04/17/21 [id number] BBF O/P DATE OF : 1965 M/R# [id number] #: [id number] CCU1 LOCATION: EMERGENCY DEPT EKG 66040 COMPL ETE:04/18/21 07:17 [place] [address] PHYSICIAN: KIM MENDEZ Name Value Range Interpretation Code Description Data Maura rce(s) Supporting Document(s) ID Date Data Source [id number] 04/18/2021 07:06:00 PM EDT [address] [place] [address] RESPIRATORY CARE REPORT ==== ---------NAME------- NUMBER SEX AGE ADMIT DISC. XRAY# F/C CYNDY Daniels [id number] F 55 04/17/21 04/17/21 [id number] [facility] E/R DATE OF : 1965 M/R# [id number] #: [id number] RM VT-01 LOCATION: EMERGENCY DEPT EKG 67338 COMP LETE:04/18/21 05:26 AJP 66748 PHYSICIAN: WYATT Name Value Range Interpretation Code Description Data Maura rce(s) Supporting Document(s) ID Date Data Source [id number] 04/18/2021 12:59:00 PM EDT [facility] (Osmel Alvarez MD) Name Value Range Interpretation Code Description Data [facility] rce(s) Supporting Document(s) Troponin T.cardiac [Mass/volume] in Serum or Plasma 0.02 ng/mL 0.00-0 .10 [facility] (Osmel Alvarez MD) TROPONIN T 0.1 ng/ml Recommended as the clinical th reshold value for Troponin T. ID Date Data Source [id number] 04/18/2021 01:27:00 PM EDT [facility] Name Value Range Interpretation Code Description Data [facility] rce(s) Supporting Document(s) TROPONIN T 0.02 NG/ML 0.00 - 0.10 [facility] spital TROPONIN T0.1 ng/ml Recommended as the c linical threshold value forTroponin T. ID Date Data Source [id number] 04/18/2021 06:59:00 AM EDT [facility] (Osmel Alvarez MD) Name Value Range Interpretation Code Description Data [facility] rce(s) Supporting Document(s) Troponin T.cardiac [Mass/volume] in Serum or Plasma 0.02 ng/mL 0.00-0 .10 [facility] (Osmel Alvaerz MD) TROPONIN T 0.1 ng/ml Recommended as the clinical th reshold value for Troponin T. Magnesium [Mass/volume] in Serum or Plasma 1.7 mg/dL 1.7-2.2 [facility] (Osmel Alvarez MD) Thyroxine (T4) free [Mass/volume] in Serum or Plasma 1.23 ng/dL 0.93- 1.70 [facility] (Osmel Alvarez MD) ID Date Data Source [id number] 04/18/2021 06:59:00 AM EDT [facility] (Osmel Alvarez [...] (Osmel Alvarez MD) ID Date Data Source [id number] 04/18/2021 06:59:00 AM EDT [facility] (Osmel Alvarez [...] >32 mL/min Normal ID Date Data Source [id number] 04/18/2021 06:59:00 AM EDT [facility] (Osmel Alvarez [...] (Osmel Alvarez MD) ID Date Data Source [id number] 04/18/2021 10:37:00 AM EDT [facility] Name Value Range Interpretation Code Description Data Maura rce(s) Supporting Document(s) Cobalamin (Vitamin B12) [Mass/volume] in Serum or Plasma 390 PG/ML 232 - 1245 [facility] ID Date Data Source [id number] 04/18/2021 10:20:00 AM EDT [facility] Name Value Range Interpretation Code Description Data Maura rce(s) Supporting Document(s) Iron [Mass/volume] in Serum or Plasma 77 UG/DL 42 - 135 [facility] ID Date Data Source [id number] 04/18/2021 08:26:00 AM EDT [facility] Value Range Interpretation Code Description Data Maura rce(s) Supporting Document(s) Thyrotropin [Units/volume] in Serum or Plasma by Detec tion limit <= 0.05 mIU/L 1.68 uIU/mL 0.47 - 5.01 [facility] ID Date Data Source [id number] 04/18/2021 08:05:00 AM EDT [facility] Name Value Range Interpretation Code Description Data Maura rce(s) Supporting Document(s) BNP 766 PG/ML 0 - 125 H [facility] ID Date Data Source [id number] 04/18/2021 08:05:00 AM EDT [facility] Value Range Interpretation Code Description Data Maura rce(s) Supporting Document(s) COMPREHENSIVE METABOLIC PANEL [facility] COMPREHENSIVE METABOLIC PANEL Sodium [Moles/volume] in Serum or Plasma 141 mEq/L 134 - 153 [facility] Potassium [Moles/volume] in Serum or Plasma 4.3 mEq/L 3.6 - 5.0 [facility] Chloride [Moles/volume] in Serum or Plasma 101 mEq/L 98 - 107 [facility] Carbon dioxide, total [Moles/volume] in Serum or Plasma 31 MEQ/L 22 - 30 H [facility] Glucose [Mass/volume] in Serum or Plasma 101 MG/DL 70 - 99 H [facility] BUN 14 MG/DL 7 - 21 [facility] Creatinine [Mass/volume] in Serum or Plasma 0.8 MG/DL 0.7 - 1.5 [facility] BUN/CREAT 18 8 - 27 [facility] al Protein [Mass/volume] in Serum or Plasma 5.5 G/DL 6.3 - 8.2 L [facility] Albumin [Mass/volume] in Serum or Plasma 3.5 G/DL 3.9 - 5.0 L [facility] Globulin [Mass/volume] in Serum by calculation 2.0 GM/DL 2.4 - 3.2 L [facility] A/G RATIO 1.8 0.8 - 2.0 [facility] Calcium [Mass/volume] in Serum or Plasma 8.8 MG/DL 8.4 - 10.2 [facility] Bilirubin.total [Mass/volume] in Serum or Plasma <0.7 MG/DL 0.2 - 1.3 [facility] Alkaline phosphatase [Enzymatic activity/volume] in Serum or Plasma 99 U/L 38 - 126 [facility] Aspartate aminotransferase [Enzymatic activity/volume] in Serum or Plasma 18 U/L 5 - 40 [facility] Alanine aminotransferase [Enzymatic activity/volume] in Seru m or Plasma 17 U/L 7 - 56 [facility] Anion gap 3 in Serum or Plasma 9.0 mmol/L 8.0 - 16.0 [facility] AGE 55 yrs [facility] NON-AA GFR >60 mL/min [facility] ital AFR AMER GFR >60 mL/min [facility] Ho spital Male GFR In [...] >32 mL/min Normal ID Date Data Source [id number] 04/18/2021 08:04:00 AM EDT [facility] Name Value Range Interpretation Code Description Data Maura rce(s) Supporting Document(s) Thyroxine (T4) free index in Serum or Plasma by calculation 1.23 NG/DL 0.93 - 1.70 [facility] ID Date Data Source [id number] 04/18/2021 08:04:00 AM EDT [facility] Name Value Range Interpretation Code Description Data Maura rce(s) Supporting Document(s) Magnesium [Mass/volume] in Serum or Plasma 1.7 MG/DL 1.7 - 2.2 [facility] ID Date Data Source [id number] 04/18/2021 07:53:00 AM EDT [facility] Name Value Range Interpretation Code Description Data Maura rce(s) Supporting Document(s) TROPONIN T 0.02 NG/ML 0.00 - 0.10 [facility] spital TROPONIN T0.1 ng/ml Recommended as the c linical threshold value forTroponin T. ID Date Data Source [id number] 04/18/2021 07:30:00 AM T [facility] Name Value Range Interpretation Code Description Data Maura rce(s) Supporting Document(s) CBC W/AUTOMATED DIFF [facility] COMPLETE BLOOD COUNT Leukocytes [#/volume] in Blood by Automated count 8.9 10^3/uL 4.2 - 1 1.0 [facility] Erythrocytes [#/volume] in Blood by Automated count 3.08 10^6/uL 4. 20 - 5.40 L [facility] Hemoglobin [Mass/volume] in Blood 10.3 g/dL 12.0 - 16.0 L [facility] Hematocrit [Volume Fraction] of Blood by Automated count 31.2 % 3 7.0 - 47.0 L [facility] Erythrocyte mean corpuscular volume [Entitic volume] b y Automated count 101.3 fL 81.0 - 101 H [facility] Erythrocyte mean corpuscular hemoglobin [Entitic mass] by Automated count 33.4 pg 27.0 - 34.0 [facility] Erythrocyte mean corpuscular hemoglobin concentration [Mass/volume] by Automated count 33.0 g/dL 31.0 - 36.0 [facility] Erythrocyte distribution width [Ratio] by Automated count 18.5 % 11.5 - 14.5 H [facility] Platelets [#/volume] in Blood by Automated count 244 10^3/uL 150 - 45 0 [facility] Platelet mean volume [Entitic volume] in Blood by Automated count 8.5 fL 7.4 - 10.4 [facility] Neutrophils/100 leukocytes in Blood by Automated count 88.8 % 37. 0 - 80.0 H [facility] Lymphocytes/100 leukocytes in Blood by Manual count 5.7 % 25.0 - 40.0 L [facility] Monocytes/100 leukocytes in Blood by Automated count 2.7 % 3.0 - 8.0 L [facility] Eosinophils/100 leukocytes in Blood by Automated count 2.0 % 0.0 - 7.0 [facility] Basophils/100 leukocytes in Blood by Automated count 0.2 % 0.0 - 2.5 [facility] %IG 0.6 % 0.0 - 0.0 [facility] %NRBC 0.0 % 0.0 - 0.0 [facility] al Neutrophils [#/volume] in Blood by Automated count 7.88 10^3/uL 2.00 - 6.90 H [facility] Lymphocytes [#/volume] in Blood by Automated count 0.51 10^3/uL 0.60 - 3.40 L [facility] Monocytes [#/volume] in Blood by Automated count 0.24 10^3/uL 0.00 - 0.90 [facility] Eosinophils [#/volume] in Blood by Automated count 0.18 10^3/uL 0.00 - 0.70 [facility] Basophils [#/volume] in Blood by Automated count 0.02 10^3/uL 0.00 - 0.20 [facility] #IG 0.05 10^3/uL 0.00 - 0.10 [facility] H ospital #NRBC 0.00 10^3/uL 0.00 - 0.00 [facility] ospital MANUAL DIFF NOT INDICATED [facility] RBC MORPH NOT INDICATED [facility] spital ID Date Data Source [id number] 04/17/2021 09:27:00 PM EDT [facility] 1 OrderSheet [facility] Emergency Department [address] [place] [address] Phone #: ext- [phone] 04/17/2021 21:23 Patient: [...] Initialed- (diltiazem 180 mg 21:56 04/17/2021 22:12 CARISSA Peck) Gloria Schneider R.N. ;GENERAL ORDERSOrder Description Priority Entered Acknowledged Initialed[Electronically signed by Nidia Peck R.N. (23:43 04/17/2021)][Electronically signed by Gloria Schneider (01:18 )][Electronically locked by Nidia Peck R.N. (23:43 04/17/2021)] Name Value Range Interpretation Code Description Data Maura rce(s) Supporting Document(s) ID Date Data Source [id number] 04/17/2021 09:27:00 PM EDT [facility] 1 Medication Reconciliation Report [facility] Emergency Department [address] [place] [address] Phone #: ext- [phone] 04/17/2021 21:23 Patient: [...] to the patient:None. 2 Medication Reconciliation Report [facility] Emergency Department [address] [place] [address] Phone #: [phone] 04/17/2021 21:23 Patient: CHANTALE SOLOMON Sex: F : 1965 Age: 55y Name Value Range Interpretation Code Description Data Maura rce(s) Supporting Document(s) ID Date Data Source [id number] 04/17/2021 09:27:00 PM EDT [facility] 1 Medication Administration Record [facility] Emergency Department [address] [place] [address] Phone #: ext- [phone] 04/17/2021 21:23 Patient: CHANTALE SOLOMON Sex: F : 1965 Age: 55yWeight: 79.3 kgHeight/Length: 60 inBMI: 34.1ALLERGIES: Penicillins, Seafood Date/Time Medication Administered Medication OrderedGiven DILTIAZEM [PO] - (diltiazem 180 mg PO)22:12 04/17/2021 Dose: 180 mg Nidia Sanders R.N. Name Value Range Interpretation Code Description Data Maura e(s) Supporting Document(s) ID Date Data Source [id number] 04/17/2021 09:27:00 PM EDT [facility] 1 General Instructions [facility] Emergency Department [address] [place] [address] Phone #: ext- [phone] 04/17/2021 21:23 Patient: CHANTALE SOLOMON Sex: F : 1965 Age: 55yParoxysmal atrial fibrillation.(Electronically signed by Gloria Schneider 04/18/2021 01:18) Name Value Range Interpretation Code Description Data Maura rce(s) Supporting Document(s) ID Date Data Source [id number] 04/17/2021 09:27:00 PM EDT [place] [address] Clinical Report - Nurses [facility] Emergency Department [address] [place] [address] Phone #: ext- [phone] 04/17/2021 21:23 Patient: CHANTALE SOLOMON Sex: F [...] she got homeshe went back into A-Fib.).Treatment DRAMATIC READER:(Cardizem 10mg). --21:37 04/17/21 Edyta Harris1:33 04/17/21. BP: [...] Disease.Heart Disease. 2 Clinical Report - Nurses [facility] Emergency Department [address] [place] [address] Phone #: ext- [phone] 04/17/2021 21:23 [id number] Sex[facility] F : 1965 Age: 55yHypertension.Hemoptysis.Atrial Fibrillation.Anemia.Back [...] abuse. No 3 Clinical Report - Nurses [facility] Emergency Department [address] [place] [address] Phone #: ext- [phone] 04/17/2021 21:23 [id number] Sex: F : 1965 Age: 55y report [...] understanding. --22:12 4 Clinical Report - Nurses [facility] Emergency Department [address] [place] [address] Phone #: ext- [phone] 04/17/2021 21:23 Patient: [...] rce(s) Supporting Document(s) ID Date Data Source [id number] 04/17/2021 09:27:00 PM EDT [facility] 1 Clinical Report - Physicians/Mid Levels [facility] Emergency Department [address] [place] [address] Phone #: ext- [phone] 04/17/2021 21:23 Patient: [...] Attack. 2 Clinical Report - Physicians/Mid Levels [facility] Emergency Department [address] [place] [address] Phone #: ext- [phone] 04/17/2021 21:23 Patient: [...] distress. 3 Clinical Report - Physicians/Mid Levels [facility] Emergency Department [address] [place] [address] Phone #: ext- [phone] 04/17/2021 21:23 Patient: [...] fibrillation. 4 Clinical Report - Physicians/Mid Levels [facility] Emergency Department [address] [place] [address] Phone #: ext- [phone] 04/17/2021 21:23 Patient: CHANTALE SOLOMON Sex: F : 1965 Age: 55y(Electronically signed by Gloria Schneider 04/18/2021 01:18) Name Value Range Interpretation Code Description Data Maura rce(s) Supporting Document(s) ID Date Data Source [id number] 04/17/2021 06:22:00 PM EDT [facility] 1 OrderSheet [facility] Emergency Department [address] [place] [address] Phone #: ext- [phone] 04/17/2021 18:21 [id number] Sex: F : 1965 Age: 55yWEIGHT:79.3 kg [...] Katelyn ;Urinalysis (Cath STAT 18:28 04/17/2021pec) Gloria Shcneider ;Urine Drug Screen STAT 18:28 04/17/2021 Gloria Schneider ;CPK STAT 18:28 04/17/2021 19:06 Wyatt Hraris Victoria Katelyn ;PT/INR STAT 18:28 04/17/2021 19:06 Wyatt Harris Victoria Katelyn ;BNP STAT 18:56 04/17/2021 19:06 Wyatt Harris Victoria Katelyn ; 2 OrderSheet [facility] Emergency Department [address] [place] [address] Phone #: ext- [phone] 04/17/2021 18:21 [id number] Sex[facility] F : 1965 Age: 55yDIAGNOSTIC STUDY [...] 18:28 04/17/2021 19:06 Wyatt Harris Victoria Katelyn ;Medical Writer 18:28 04/17/2021 19:06 Kimberly(continuous) Gloria Schneider ;EKG [...] Lock 18:28 04/17/2021 19:06 Kimberly, 3 OrderSheet [facility] Emergency Department [address] [place] [address] Phone #: ext- [phone] 04/17/2021 18:21 Patient: CHANTALE SOLOMON Sex: F : 1965 Age: 55y Gloria Schneider ;Vitals 18:28 04/17/2021 19:06 Wyatt Harris Victoria Katelyn ;[Electronically signed by Lynette Harris (21:01 04/17/2021)][Electronically signed by Gloria Schneider (01:17 04/18/2021)][Electronically locked by Lynette Harris (:04/17/2021)] Name Value Range Interpretation Code Description Data Maura rce(s) Supporting Document(s) ID Date Data Source [id number] 04/17/2021 06:22:00 PM EDT [facility] 1 Medication Reconciliation Report [facility] Emergency Department [address] [place] [address] Phone #: ext- [phone] 04/17/2021 18:21 Patient: [...] Emergency Department:Cardizem [IVP] IVP 10 mg, administered: :04/17/2021NS [IV] IV Fluids bolus 0, then 150 mL/hr, administered: :04/17/2021 2 Medication Reconciliation Report [facility] Emergency Department [address] [place] [address] Phone #: ext- [phone] 04/17/2021 18:21 Patient: CHANTALE SOLOMON Sex: F : 1965 Age: 55yThe following Medications were prescribed to the patient:None. Name Value Range Interpretation Code Description Data Maura rce(s) Supporting Document(s) ID Date Data Source [id number] 04/17/2021 06:22:00 PM EDT [facility] 1 Medication Administration Record [facility] Emergency Department [address] [place] [address] Phone #: ext- [phone] 04/17/2021 18:21 Patient: CHANTALE SOLOMON Sex: F : 1965 Age: 55yWeight: 79.3 kgHeight/Length: 60 inBMI: 34.1ALLERGIES: Penicillins, Seafood Date/Time Medication Administered Medication OrderedStart NS [IV] NS IV : 150 mL/hr:04/17/2021 Dose: IV FluidsJacquelyn Chanel, R.N. Rate: 150 mL/hr over 6 hour(s)---- Dispensed: 1000 mL bagStop Site: #1 left AC20:56 04/17/2021Lynette ricketts,Given CARDIZEM [IVP] (DILTIAZEM HCL) Cardizem IVP 10 mg19:13 04/17/2021 Dose: 10 mg IVPMJacquelyn moss R.N. Site: #1 left AC Name Value Range Interpretation Code Description Data Maura rce(s) Supporting Document(s) ID Date Data Source [id number] 04/17/2021 06:22:00 PM EDT [facility] 1 General Instructions [facility] Emergency Department [address] [place] [address] Phone #: ext- [phone] 04/17/2021 18:21 Patient: [...] daily.Follow-up with: Osmel Alvarez MD, Cardiology, , [address] [place] [address], [id number] Follow up tomorrow. Reason for referral: at 9:30 am. ADDITIONAL INFORMATIONAtrial Fibrillation 2 General Instructions [facility] Emergency Department [address] [place] [address] Phone #: ext- [phone] 04/17/2021 18:21 Patient: [...] a couple ofdays. Or it may become snf (chronic), lasting for months at a time [...] heart valves Enlarged heart 3 General Instructions [facility] Emergency Department [address] [place] [address] Phone #: ext- [phone] 04/17/2021 18:21 Patient: [...] If you smoke, stop smoking. Contact your [facility] provider or a local stop-smoking program for [...] work as they should. 4 General Instructions [facility] Emergency Department [address] [place] [address] Phone #: ext- [phone] 04/17/2021 18:21 Patient: [...] vision Extreme drowsiness, confusion, dizziness, or fainting [id number] [employer]. [address] [place] [address]. All rights reserved. This information is not intended as asubstitute for professional medical care. Always follow your healthcare professional's instructions. You have been given the following additional information: 5 General Instructions [facility] Emergency Department [address] [place] [address] Phone #: ext- [phone] 04/17/2021 18:21 Patient: CHANTALE SOLOMON Sex: F : 1965 Age: 55yAtrial Fibrillation(Electronically signed by Gloria Schneider 04/18/2021 01:17) Name Value Range Interpretation Code Description Data Maura rce(s) Supporting Document(s) ID Date Data Source [id number] 04/17/2021 06:22:00 PM EDT [facility] 1 Clinical Report - Nurses [facility] Emergency Department [address] [place] [address] Phone #: ext- [phone] 04/17/2021 18:21 Patient: [...] started today. She has had difficulty breathing.Treatment DRAMATIC READER:None.SEPSIS SCREEN: SIRS SCREEN NEGATIVE. SEPSIS SCREEN NEGATIVE. [...] Pierson R.N. 2 Clinical Report - Nurses [facility] Emergency Department [address] [place] [address] Phone #: ext- [phone] 04/17/2021 18:21 [id number] Sex: F : 1965 Age: 55yDVT - [...] had thoughts 3 Clinical Report - Nurses [facility] Emergency Department [address] [place] [address] Phone #: ext- [phone] 04/17/2021 18:21 Patient: [...] treatment room. --18:51 04/17/21 Orin Pierson R.N.PHYSICAL ENOGPMUMKY83:57 04/17/21. To room via wheelchair. Patient gowned.GENERAL [...] R.N.NURSING PROGRESS NOTESOxygen administered at 2 liters. hospital monitor and NIBP monitor placed on patient. Patient gowned.Reassurance given. Patient identifiers checked. Call light placed in reach. Side rails up x 2. Bedplaced in lowest position. Brakes of bed on. Care transferred. --18:51 04/17/21 Orin Pierson R.N. 19:06 04/17/2021 Site #1 started [...] Lynette Harris 4 Clinical Report - Nurses [facility] Emergency Department [address] [place] [address] Phone #: ext- [phone] 04/17/2021 18:21 ------- Patient: CHANTALE SOLOMON Sex: [...] in lowest position. Brakes of bed on. --:04/17/21 James Youngblood R.N. EKG time: (20:43 04/17/2021). [...] applied. --21:00 04/17/21 Lynette Harris Departure time: 21:04/17/2021. Condition at departure: improved. No learning barriers present. Discharge instructions provided and reviewed with the patient. Reviewed warnings. Reviewed medication(s). Reviewed referrals. Patient verbalized understanding. Written instructions provided in Estonian. The patient was discharged by the physician. She was discharged home and accompanied by spouse. She left ambulatory and via private vehicle. Spouse driving. --21:01 04/17/21 Lynette Harris 21:00 04/17/21. BP: 118/73. HR: 99. RR: 24. O2 saturation: 100%. Temp: 97.7 F. Pain level now 0/10. --21:01 04/17/21 Lynette Harris. 5 Clinical Report - Nurses [facility] Emergency Department [address] [place] [address] Phone #: ext- [phone] 04/17/2021 18:21 [id number] Sex: F : 1965 Age: 55yLocked/Released at 04/17/2021 21:01 by Lynette Harris Name Value Range Interpretation Code Description Data Maura rce(s) Supporting Document(s) ID Date Data Source [id number] 04/17/2021 06:22:00 PM EDT [facility] 1 Clinical Report - Physicians/Mid Levels [facility] Emergency Department [address] [place] [address] Phone #: ext- [phone] 04/17/2021 18:21 Patient: [...] Attack. 2 Clinical Report - Physicians/Mid Levels [facility] Emergency Department [address] [place] [address] Phone #: ext- [phone] 04/17/2021 18:21 Patient: [...] distress. 3 Clinical Report - Physicians/Mid Levels [facility] Emergency Department [address] [place] [address] Phone #: ext- [phone] 04/17/2021 18:21 Patient: CHANTALE SOLOOMN Sex: F : 1965 Age: 55y Eyes: [...] 0.0) 4 Clinical Report - Physicians/Mid Levels [facility] Emergency Department [address] [place] [address] Phone #: ext- [phone] 04/17/2021 18:21 Patient: [...] Male GFR Interprentation 20-49 yrs >60 mL/min Feqfcm85-20 yrs >56 mL/min Normal 60-69 yrs >49 mL/min Normal 70-79yrs>42 mL/min Normal 80 and above >35 mL/min Normal Female GFRInterpretation 20-39 yrs >60 mL/min Normal 40-49 yrs >58 mL/minNormal 50-59 yrs >51 mL/min Normal 60-69 yrs >45 mL/min Cdhmml09-85 yrs >39 mL/min Normal 80 and above >32 mL/min NormalMagnesium: (SARAH: 04/17/2021 18:48) ( [facility] 04/17/2021 19:53) Final results Test Result Flag Units (Reference) MAGNESIUM 1.8 MG/DL (1.7 - 2.2)Troponin-T: (SARAH: 04/17/2021 18:48) ( [facility] [place] 04/17/2021 19:26) Final results Test Result Flag Units (Reference) TROPONIN T 0.02 NG/ML (0.00 - 0.10) TROPONIN T0.1 ng/ml Recommended as the clinical threshold value forTroponin T.TSH: (SARAH: 04/17/2021 18:48) ( [facility] 04/17/2021 19:53) Final results Test Result Flag Units (Reference) TSH 2.85 uIU/mL (0.47 - 5.01) 5 Clinical Report - Physicians/Mid Levels [facility] Emergency Department [address] [place] [address] Phone #: ext- [phone] 04/17/2021 18:21 Patient: CHANTALE SOLOMON Sex: F : 1965 Age: 55y CPK: (SARAH: 04/17/2021 18:48) ( [facility] [place] 04/17/2021 19:32) Final results Test Result Flag [...] Thrombosis, Pulmonary Embolus, Tissue heart valves, Acute MN, Atrial Fibrillation, Valvular heart disease and recurrent [...] rate. 6 Clinical Report - Physicians/Mid Levels [facility] Emergency Department [address] [place] [address] Phone #: [phone]- [phone] 04/17/2021 18:21 Patient: CHANTALE SOLOMON Sex: F [...] Follow-up with: Osmel Alvarez MD, Cardiology, , [address] [place] [address], [address] Follow up tomorrow. Reason for referral: at 9:30 am.(Electronically signed by Gloria Schneider 04/18/2021 01:17) Name Value Range Interpretation Code Description Data Maura rce(s) Supporting Document(s) ID Date Data Source [id number] 04/18/2021 01:05:00 AM EDT [facility] (Osmel Alvarez MD) Name Value Range Interpretation Code Description Data Maura rce(s) Supporting Document(s) Troponin T.cardiac [Mass/volume] in Serum or Plasma 0.02 ng/mL 0.00-0 .10 [facility] (Osmel Alvarez MD) TROPONIN T 0.1 ng/ml Recommended as the clinical th reshold value for Troponin T. ID Date Data Source [id number] 04/18/2021 01:38:00 AM EDT [facility] Name Value Range Interpretation Code Description Data Maura rce(s) Supporting Document(s) TROPONIN T 0.02 NG/ML 0.00 - 0.10 [facility] TROPONIN T0.1 ng/ml Recommended as the c linical threshold value forTroponin T. ID Date Data Source [id number] 04/17/2021 09:56:00 PM EDT [facility] (Osmel Alvarez [...] CDC?: N~Hospitalized?: Y ID Date Data Source [id number] 04/17/2021 09:56:00 PM EDT [facility] Name Value Range Interpretation Code Description Data [facility] Supporting Document(s) COVID19 Case rprt NOT DETECTED [facility] This lab was ordered by [facility] and reported by [facility]. ID Date Data Source [id number] 04/17/2021 10:37:00 PM EDT [facility] NOT DETECTEDNOT DETECTED{ PROC EDURAL CONTROL [...] rce(s) Supporting Document(s) ID Date Data Source [id number] 04/17/2021 07:56:00 PM EDT [facility] Name Value Range Interpretation Code Description Data Maura rce(s) Supporting Document(s) BNP 750 PG/ML 0 - 125 H [facility] al ID Date Data Source [id number] 04/17/2021 07:55:00 PM EDT [facility] Name Value Range Interpretation Code Description Data [facility](s) Supporting Document(s) COMPREHENSIVE METABOLIC PANEL [facility] COMPREHENSIVE METABOLIC PANEL Sodium [Moles/volume] in Serum or Plasma 136 mEq/L 134 - 153 [facility] Potassium [Moles/volume] in Serum or Plasma 3.7 mEq/L 3.6 - 5.0 [facility] Chloride [Moles/volume] in Serum or Plasma 94 mEq/L 98 - 107 L [facility] Carbon dioxide, total [Moles/volume] in Serum or Plasma 29 MEQ/L 22 - 30 [facility] Glucose [Mass/volume] in Serum or Plasma 113 MG/DL 70 - 99 H [facility] BUN 17 MG/DL 7 - 21 [facility] Creatinine [Mass/volume] in Serum or Plasma 0.8 MG/DL 0.7 - 1.5 [facility] BUN/CREAT 21 8 - 27 [facility] Protein [Mass/volume] in Serum or Plasma 6.6 G/DL 6.3 - 8.2 [facility] Albumin [Mass/volume] in Serum or Plasma 4.3 G/DL 3.9 - 5.0 [facility] Globulin [Mass/volume] in Serum by calculation 2.3 GM/DL 2.4 - 3.2 L [facility] A/G RATIO 1.9 0.8 - 2.0 [facility] Calcium [Mass/volume] in Serum or Plasma 9.3 MG/DL 8.4 - 10.2 [facility] Bilirubin.total [Mass/volume] in Serum or Plasma <0.7 MG/DL 0.2 - 1.3 [facility] Alkaline phosphatase [Enzymatic activity/volume] in Serum or Plasma 117 U/L 38 - 126 [facility] Aspartate aminotransferase [Enzymatic activity/volume] in Serum or Plasma 22 U/L 5 - 40 [facility] Alanine aminotransferase [Enzymatic activity/volume] in Seru m or Plasma 24 U/L 7 - 56 [facility] Anion gap 3 in Serum or Plasma 13.0 mmol/L 8.0 - 16.0 [facility] AGE 55 yrs [facility] al NON-AA GFR >60 mL/min [facility] ital AFR AMER GFR >60 mL/min [facility] spital Male GFR In [...] >32 mL/min Normal ID Date Data Source [id number] 04/17/2021 07:53:00 PM EDT [facility] Name Value Range Interpretation Code Description Data Maura rce(s) Supporting Document(s) Thyrotropin [Units/volume] in Serum or Plasma by Detec tion limit <= 0.05 mIU/L 2.85 uIU/mL 0.47 - 5.01 [facility] ID Date Data Source [id number] 04/17/2021 07:53:00 PM EDT [facility] Value Range Interpretation Code Description Data Maura rce(s) Supporting Document(s) Magnesium [Mass/volume] in Serum or Plasma 1.8 MG/DL 1.7 - 2.2 [facility] ID Date Data Source [id number] 04/17/2021 07:32:00 PM EDT [facility] Value Range Interpretation Code Description Data Maura rce(s) Supporting Document(s) Creatine kinase [Enzymatic activity/volume] in Serum or Plasma 2 9 U/L 30 - 170 L [facility] ID Date Data Source [id number] 04/17/2021 07:26:00 PM EDT [facility] Name Value Range Interpretation Code Description Data [facility](s) Supporting Document(s) TROPONIN T 0.02 NG/ML 0.00 - 0.10 [facility] spital TROPONIN T0.1 ng/ml Recommended as the c linical threshold value forTroponin T. ID Date Data Source [id number] 04/17/2021 07:21:00 PM EDT [facility] Name Value Range Interpretation Code Description Data [facility] Supporting Document(s) Prothrombin time (PT) 15.3 SECONDS 11.0 - 15.5 [facility] INR in Platelet poor plasma by Coagulation assay 1.19 0.93 - 1. 23 [facility] \\BLDo\\INR INTERPRETATION\\BLDx\\ Therapeutic range for Coumadin and related oral anticoagulants. - International Normalized Ratio (INR): 2.0 - 3.0 for Venous Thrombosis, Pulmonary Embolus, Tissue heart valves, Acute MN, Atrial Fibrillation, Valvular heart disease and recurrent Systemic Embolism. -International Normalized Ratio (INR): 2.5 - 3.5 for Mechanical Prosthetic valve. ID Date Data Source [id number] 04/17/2021 07:02:00 PM EDT [facility] Name Value Range Interpretation Code Description Data [facility](s) Supporting Document(s) CBC W/AUTOMATED DIFF [facility] COMPLETE BLOOD COUNT Leukocytes [#/volume] in Blood by Automated count 13.5 10^3/uL 4.2 - 11.0 H [facility] Erythrocytes [#/volume] in Blood by Automated count 3.46 10^6/uL 4. 20 - 5.40 L [facility] Hemoglobin [Mass/volume] in Blood 11.8 g/dL 12.0 - 16.0 L [facility] Hematocrit [Volume Fraction] of Blood by Automated count 35.2 % 3 7.0 - 47.0 L [facility] Erythrocyte mean corpuscular volume [Entitic volume] b y Automated count 101.7 fL 81.0 - 101 H [facility] Erythrocyte mean corpuscular hemoglobin [Entitic mass] by Automated count 34.1 pg 27.0 - 34.0 H [facility] Erythrocyte mean corpuscular hemoglobin concentration [Mass/volume] by Automated count 33.5 g/dL 31.0 - 36.0 [facility] Erythrocyte distribution width [Ratio] by Automated count 18.5 % 11.5 - 14.5 H [facility] Platelets [#/volume] in Blood by Automated count 319 10^3/uL 150 - 45 0 [facility] Platelet mean volume [Entitic volume] in Blood by Automated count 8.7 fL 7.4 - 10.4 [facility] Neutrophils/100 leukocytes in Blood by Automated count 83.7 % 37. 0 - 80.0 H [facility] Lymphocytes/100 leukocytes in Blood by Manual count 11.4 % 25.0 - 40.0 L [facility] Monocytes/100 leukocytes in Blood by Automated count 2.5 % 3.0 - 8.0 L [facility] Eosinophils/100 leukocytes in Blood by Automated count 1.8 % 0.0 - 7.0 [facility] Basophils/100 leukocytes in Blood by Automated count 0.1 % 0.0 - 2.5 [facility] %IG 0.5 % 0.0 - 0.0 H [facility] al %NRBC 0.0 % 0.0 - 0.0 [facility] al Neutrophils [#/volume] in Blood by Automated count 11.25 10^3/uL 2. 00 - 6.90 H [facility] Lymphocytes [#/volume] in Blood by Automated count 1.53 10^3/uL 0.60 - 3.40 [facility] Monocytes [#/volume] in Blood by Automated count 0.34 10^3/uL 0.00 - 0.90 [facility] Eosinophils [#/volume] in Blood by Automated count 0.24 10^3/uL 0.00 - 0.70 [facility] Basophils [#/volume] in Blood by Automated count 0.02 10^3/uL 0.00 - 0.20 [facility] #IG 0.07 10^3/uL 0.00 - 0.10 [facility] #NRBC 0.00 10^3/uL 0.00 - 0.00 [facility] MANUAL DIFF NOT INDICATED [facility] RBC MORPH NOT INDICATED [facility] spital ID Date Data Source [id number] 04/11/2021 09:38:00 AM EDT [facility] (Osmel Alvarez MD) Name Value Range Interpretation Code Description Data Maura rce(s) Supporting Document(s) Magnesium [Mass/volume] in Serum or Plasma 1.5 mg/dL 1.7-2.2 [place] w low normal [facility] (Osmel Alvarez MD) ID Date Data Source [id number] 04/11/2021 09:38:00 AM EDT [facility] (Osmel Alvarez [...] (Osmel Alvarez MD) ID Date Data Source [id number] 04/11/2021 09:38:00 AM EDT [facility] (Osmel Alvarez [...] (navigational concept) 0.0 % 0.0-0.0 [facility] (Osmel lAvarez MD) Laboratory test finding (navigational concept) 0.82 [...] (Osmel Alvarez MD) ID Date Data Source [id number] 04/11/2021 10:57:00 AM EDT [facility] Name Value Range Interpretation Code Description Data Maura rce(s) Supporting Document(s) Magnesium [Mass/volume] in Serum or Plasma 1.5 MG/DL 1.7 - 2.2 L [facility] ID Date Data Source [id number] 04/11/2021 10:57:00 AM EDT [facility] Name Value Range Interpretation Code Description Data Maura rce(s) Supporting Document(s) COMPREHENSIVE METABOLIC PANEL [facility] COMPREHENSIVE METABOLIC PANEL Sodium [Moles/volume] in Serum or Plasma 139 mEq/L 134 - 153 [facility] Potassium [Moles/volume] in Serum or Plasma 4.5 mEq/L 3.6 - 5.0 [facility] Chloride [Moles/volume] in Serum or Plasma 98 mEq/L 98 - 107 [facility] Carbon dioxide, total [Moles/volume] in Serum or Plasma 30 MEQ/L 22 - 30 [facility] Glucose [Mass/volume] in Serum or Plasma 133 MG/DL 70 - 99 H [facility] BUN 10 MG/DL 7 - 21 [facility] al Creatinine [Mass/volume] in Serum or Plasma 0.8 MG/DL 0.7 - 1.5 [facility] BUN/CREAT 13 8 - 27 [facility] Protein [Mass/volume] in Serum or Plasma 6.0 G/DL 6.3 - 8.2 L [facility] Albumin [Mass/volume] in Serum or Plasma 3.6 G/DL 3.9 - 5.0 L [facility] Globulin [Mass/volume] in Serum by calculation 2.4 GM/DL 2.4 - 3.2 [facility] A/G RATIO 1.5 0.8 - 2.0 [facility] Calcium [Mass/volume] in Serum or Plasma 9.3 MG/DL 8.4 - 10.2 [facility] Bilirubin.total [Mass/volume] in Serum or Plasma <0.7 MG/DL 0.2 - 1.3 [facility] Alkaline phosphatase [Enzymatic activity/volume] in Serum or Plasma 104 U/L 38 - 126 [facility] Aspartate aminotransferase [Enzymatic activity/volume] in Serum or Plasma 20 U/L 5 - 40 [facility] Alanine aminotransferase [Enzymatic activity/volume] in Seru m or Plasma 12 U/L 7 - 56 [facility] Anion gap 3 in Serum or Plasma 11.0 mmol/L 8.0 - 16.0 [facility] AGE 55 yrs [facility] al NON-AA GFR >60 mL/min [facility] ital AFR AMER GFR >60 mL/min [facility] Ho spital Male GFR In [...] >32 mL/min Normal ID Date Data Source [id number] 04/11/2021 10:02:00 AM EDT [facility] Name Value Range Interpretation Code Description Data Maura rce(s) Supporting Document(s) CBC W/AUTOMATED DIFF [facility] COMPLETE BLOOD COUNT Leukocytes [#/volume] in Blood by Automated count 7.2 10^3/uL 4.2 - 1 1.0 [facility] Erythrocytes [#/volume] in Blood by Automated count 3.12 10^6/uL 4. 20 - 5.40 L [facility] Hemoglobin [Mass/volume] in Blood 10.3 g/dL 12.0 - 16.0 L [facility] Hematocrit [Volume Fraction] of Blood by Automated count 31.8 % 3 7.0 - 47.0 L [facility] Erythrocyte mean corpuscular volume [Entitic volume] b y Automated count 101.9 fL 81.0 - 101 H [facility] Erythrocyte mean corpuscular hemoglobin [Entitic mass] by Automated count 33.0 pg 27.0 - 34.0 [facility] Erythrocyte mean corpuscular hemoglobin concentration [Mass/volume] by Automated count 32.4 g/dL 31.0 - 36.0 [facility] Erythrocyte distribution width [Ratio] by Automated count 18.5 % 11.5 - 14.5 H [facility] Platelets [#/volume] in Blood by Automated count 436 10^3/uL 150 - 45 0 [facility] Platelet mean volume [Entitic volume] in Blood by Automated count 8.9 fL 7.4 - 10.4 [facility] Neutrophils/100 leukocytes in Blood by Automated count 78.6 % 37. 0 - 80.0 [facility] Lymphocytes/100 leukocytes in Blood by Manual count 11.4 % 25.0 - 40.0 L [facility] Monocytes/100 leukocytes in Blood by Automated count 8.9 % 3.0 - 8.0 H [facility] Eosinophils/100 leukocytes in Blood by Automated count 0.0 % 0.0 - 7.0 [facility] Basophils/100 leukocytes in Blood by Automated count 0.1 % 0.0 - 2.5 [facility] %IG 1.0 % 0.0 - 0.0 H [facility] al %NRBC 0.0 % 0.0 - 0.0 [facility] al Neutrophils [#/volume] in Blood by Automated count 5.66 10^3/uL 2.00 - 6.90 [facility] Lymphocytes [#/volume] in Blood by Automated count 0.82 10^3/uL 0.60 - 3.40 [facility] Monocytes [#/volume] in Blood by Automated count 0.64 10^3/uL 0.00 - 0.90 [facility] Eosinophils [#/volume] in Blood by Automated count 0.00 10^3/uL 0.00 - 0.70 [facility] Basophils [#/volume] in Blood by Automated count 0.01 10^3/uL 0.00 - 0.20 [facility] #IG 0.07 10^3/uL 0.00 - 0.10 [facility] #NRBC 0.00 10^3/uL 0.00 - 0.00 [facility] MANUAL DIFF NOT INDICATED [facility] RBC MORPH NOT INDICATED [facility] spital ID Date Data Source [id number] 04/03/2021 01:53:00 [place] [address] RESPIRATORY CARE REPORT ==== ---------NAME------- NUMBER SEX AGE ADMIT DISC. XRAY# F/C CYNDY Daniels [id number] F [id number] 04/01/21 04/01/21 [id number] [facility] E/R DATE OF : 1965 M/R# [id number] PH#: [phone] TR- LOCATION: EMERGENCY DEPT EKG [id number] COMP LETE:04/02/21 01:36 [place] [id number] PHYSICIAN: WYATT Name Value Range Interpretation Code Description Data Maura rce(s) Supporting Document(s) ID Date Data Source [id number] 04/03/2021 01:52:00 [place] [address] RESPIRATORY CARE REPORT ==== ---------NAME------- NUMBER SEX AGE ADMIT DISC. XRAY# F/C CYNDY Daniels [id number] F [id number] 04/01/21 04/01/21 [id number] [facility] E/R DATE OF : 1965 M/R# [id number] PH#: [phone] TR-07 LOCATION: EMERGENCY DEPT EKG 41206 COMP LETE:04/02/21 01:36 [place] [id number] PHYSICIAN: WYATT Name Value Range Interpretation Code Description Data Maura rce(s) Supporting Document(s) ID Date Data Source [id number] 04/03/2021 10:31:00 [place] [address] PHONE: [phone] FAX: [phone] Name .................. : JUANITO KYLEKULDIP Daniels Acct Number.................. : [id number] ROOM. ................. : TR-07 MR Number ................... : [id number] Stay type ............. : E/R Discharge Date......... ... : 04/01/21 Admit Date ......... : 04/01/21 Admit Phys .................... : WYATT Date of ....... : 1965 Family Phys ................... : REGINE GAIL Phone .................. : [phone] Age ................................ : 55 Film# .................. .:[id number] Sex ................................. : F Unsigned transcriptions are preliminary reports and do not represent a medical or legal document CHEST PORTABLE [id number] COMPLETE:04/01/21 18:47 KATINA [id number] Reason(s): palpitations PORTABLE CHEST X-RAY: CLINICAL HISTORY: [...] Date: Copy for: [facility] via [employer] Copy for: 710 MED REC DISCHARGED Page 1 of 1 Name Value Range Interpretation Code Description Data Maura rce(s) Supporting Document(s) ID Date Data Source [id number] 04/01/2021 02:22:00 PM EDT [facility] 1 OrderSheet [facility] Emergency Department [address] [place] [address] Phone #: ext- [phone] 04/01/2021 14:19 Patient: [...] Gloria Bolton RN ;Troponin-T STAT 14:04/01/2021 14:33 Glorai Bolton RN ;DIAGNOSTIC STUDY ORDERSOrder Description Priority Entered Acknowledged InitialedChest Portable 1 STAT 14:04/01/2021 14:33 Yusef (Oxygen? Gloria Schneider RN(Yes)) ; Reason for Study: palpitationsMEDICATION/IV/DRIP/FLUID ORDERSOrder Description Priority Entered Acknowledged InitialedCardizem IVP 20 14:29 04/01/2021 14:56 Francineymg (NOW x1) Gloria Schneider RN ;NS IV : 250 mL/hr 14:30 04/01/2021 14:56 Gloria Bolton RN ; 2 OrderSheet [facility] Emergency Department [address] [place] [address] Phone #: ext- [phone] 04/01/2021 14:19 Patient: CHANTALE SOLOMON Sex: F : 1965 Age: 55yCardizem Drip IV : 15:14 04/01/2021 Cancelled: Other 16:55 Yandel Mendes10 mg/hr (Add 125 Gloria Schneider RNmg (25 mL) to 100 ;mL NS to get 125mg/125 mL (1mg/mL))Potassium Chloride 16:12 04/01/2021 16:26 FrancineyLiquid PO 40 meq Gloria Schneider RN(NOW) ;GENERAL ORDERSOrder Description Priority Entered Acknowledged InitialedBlood Pressure 14:04/01/2021 14:32 FrancineyMonitor Gloria Schneider RN ;Medical Writer 14:04/01/2021 14:32 Yandel(continuous) Gloria Schneider RN ;EKG 14:04/01/2021 14:32 Gloria Bolton RN ;NPO 14:04/01/2021 14:32 Gloria Bolton RN ;Obtain Old EKG 14:04/01/2021 14:32 Gloria Bolton RN ;Obtain Old Records 14:04/01/2021 14:32 Gloria Bolton RN ;Oxygen (2 L/min) 14:04/01/2021 14:32 Yandel(NC) (Titrate to O2 Gloria Schneider RNSat >95%) ;Oxygen titrate to 14:04/01/2021 14:32 Gisselle% Gloria Schneider RN ;Pulse oximeter 14:04/01/2021 14:32 Yandel(Continuous) Gloria Schneider RN ;Saline Lock 14:04/01/2021 14:33 Gloria Bolton RN ;Vitals 14:04/01/2021 14:32 Yandel 3 OrderSheet [facility] Emergency Department [address] [place] [address] Phone #: ext- [phone] 04/01/2021 14:19 Patient: CHANTALE SOLOMON Sex: F : 1965 Age: 55y Gloria Schneider RN ;EKG 16:08 04/01/2021 16:17 Gloria Bolton RN ;[Electronically signed by Yandel Mendes RN (19:31 04/01/2021)][Electronically signed by Gloria Schneider (21:28 04/01/2021)][Electronically locked by Yandel Mendes RN (19:31 04/01/2021)] Name Value Range Interpretation Code Description Data Maura rce(s) Supporting Document(s) ID Date Data Source [id number] 04/01/2021 02:22:00 PM EDT [facility] 1 Medication Reconciliation Report [facility] Emergency Department [address] [place] [address] Phone #: ext- [phone] 04/01/2021 14:19 Patient: [...] administered: 14:46 04/01/2021 2 Medication Reconciliation Report [facility] Emergency Department [address] [place] [address] Phone #: ext- [phone] 04/01/2021 14:19 Patient: CHANTALE SOLOMON Sex: F : 1965 Age: 55yPOTASSIUM CHLORIDE LIQUID PO PO 40 meq, administered: 16:26 04/01/2021The following Medications were prescribed to the patient:None. Name Value Range Interpretation Code Description Data Maura rce(s) Supporting Document(s) ID Date Data Source [id number] 04/01/2021 02:22:00 PM EDT [facility] 1 Medication Administration Record [facility] Emergency Department [address] [place] [address] Phone #: ext- [phone] 04/01/2021 14:19 Patient: [...] rce(s) Supporting Document(s) ID Date Data Source [id number] 04/01/2021 02:22:00 PM EDT [facility] 1 General Instructions [facility] Emergency Department [address] [place] [address] Phone #: ext- [phone] 04/01/2021 14:19 Patient: CHANTALE SOLOMON Sex: F [...] paper. ADDITIONAL INFORMATIONAbout Arrhythmias 2 General Instructions [facility] Emergency Department [address] [place] [address] Phone #: ext- [phone] 04/01/2021 14:19 Patient: [...] Chest pain or pressure 3 General Instructions [facility] Emergency Department [address] [place] [address] Phone #: ext- [phone] 04/01/2021 14:19 Patient: [...] Obesity Congenital heart disease 4 General Instructions [facility] Emergency Department [address] [place] [address] Phone #: ext- [phone] 04/01/2021 14:19 Patient: [...] help. Tell your doctor about any prescription, ncij-qzy-eovztda, or herbal medicines you take. These may be affecting your heart rhythm.Follow-up careFollow up with your healthcare provider, or as advised. If a Holter monitor has been recommended,contact the metal filer you have been referred to as soon as you can vegetable picker the device. Otheroutpatient tests may also be [...] lightheaded, faint, or dizzy 5 General Instructions [facility] Emergency Department [address] [place] [address] Phone #: ext- [phone] 04/01/2021 14:19 Patient: [...] getting help while trying to find them. [employer] a [employer]. [address] [place] [address]. All rights reserved. This information is not intended as asubstitute for professional medical care. Always follow your healthcare professional's instructions.Atrial Fibrillation 6 General Instructions [facility] Emergency Department [address] [place] [address] Phone #: ext- [phone] 04/01/2021 14:19 Patient: [...] a couple ofdays. Or it may become compounding technician (chronic), lasting for months at a time [...] heart valves Enlarged heart 7 General Instructions [facility] Emergency Department [address] [place] [address] Phone #: ext- [phone] 04/01/2021 14:19 Patient: [...] work as they should. 8 General Instructions [facility] Emergency Department [address] [place] [address] Phone #: ext- [phone] 04/01/2021 14:19 Patient: CHANTALE SOLOMON Sex: F [...] vision Extreme drowsiness, confusion, dizziness, or fainting [employer]. [address] [place] [address], [place] [address]. All rights reserved. This information is not intended as asubstitute for professional medical care. Always follow your healthcare professional's instructions.Hypokalemia 9 General Instructions [facility] Emergency Department [address] [place] [address] Phone #: ext- [phone] 04/01/2021 14:19 Patient: [...] very fast heart rate Loss of consciousness [id number] [employer]. [address] [place] [address]. All rights reserved. This information is not intended as asubstitute for professional medical care. Always follow your healthcare professional's instructions. 10 General Instructions [facility] Emergency Department [address] [place] [address] Phone #: ext- [phone] 04/01/2021 14:19 Patient: CHANTALE SOLOMON Sex: F : 1965 Age: 55yYou have been given the following additional information:About ArrhythmiasAtrial FibrillationHypokalemia(Electronically signed by Gloria Schneider 04/01/2021 21:28) Name Value Range Interpretation Code Description Data Maura rce(s) Supporting Document(s) ID Date Data Source [id number] 04/01/2021 02:22:00 PM EDT [facility] 1 Clinical Report - Nurses [facility] Emergency Department [address] [place] [address] Phone #: ext- [phone] 04/01/2021 14:19 Patient: CHANTALE SOLOMON Sex: F : 1965 Age: 55yTRIAGEArrived by private vehicle. Historian: patient. Accompanied by spouse.Triage time: 14:20 04/01/2021. Acuity: LEVEL 3.Chief Complaint: (HEART RACING).Alert. No acute distress.Onset. (30 minutes ago).Treatment DRAMATIC READER:None.SEPSIS SCREEN: SIRS SCREEN NEGATIVE: heart rate greater [...] Venous Thrombosis. 2 Clinical Report - Nurses [facility] Emergency Department [address] [place] [address] Phone #: ext- [phone] 04/01/2021 14:19 Patient: CHANTALE SOLOMON Sex: F [...] no barriers. 3 Clinical Report - Nurses [facility] Emergency Department [address] [place] [address] Phone #: ext- [phone] 04/01/2021 14:19 [id number] Sex[facility] F : 1965 Age: 55y SKIN [...] on patient. --14:57 04/01/21 Yandel Mendes RN.PHYSICAL [id number] 04/01/21. Ambulatory to room.GENERAL / NEURO / [...] and shown to the ED physician. --14: Leilani Costello R.N. Oxygen administered by nasal cannula at 2 liters. hospital monitor, NIBP monitor and pulse oximeter placed [...] #1. Allergies 4 Clinical Report - Nurses [facility] Emergency Department [address] [place] [address] Phone #: ext- [phone] 04/01/2021 14:19 Patient: CHANTALE SOLOMON Sex: F : 1965 Age: 55y verified and confirmed 5 rights. IV patency established. IVP given by RN. Information reviewed with patient. --14:56 04/01/21 Yandel Mendes RN Checked patient name and birthdate: patient confirmed. Blood samples drawn by tech. ([id number]). Portable chest x-ray completed. Shown to the ED physician ([id number]). --14:58 04/01/21 Yandel Mendes RN 15:36 04/01/21. [...] Information reviewed with patient. --16:26 04/01/21 Yandel Mnedes RN ( 1625 pt OOB to BS to void with heart rate increased to [...] medication(s) (no changes). 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 Patient and spouse verbalized understanding. Written instructions provided in Estonian. The patient was discharged by the physician. She was discharged 5 Clinical Report - Nurses [facility] Emergency Department [address] [place] [address] Phone #: ext- [phone] 04/01/2021 14:19 Patient: [...] rce(s) Supporting Document(s) ID Date Data Source [id number] 04/01/2021 02:22:00 PM EDT [facility] 1 Clinical Report - Physicians/Mid Levels [facility] Emergency Department [address] [place] [address] Phone #: ext- [phone] 04/01/2021 14:19 Patient: CHANTALE SOLOMON Sex: F [...] has had chest discomfort and dizziness. Treatment DRAMATIC READER: (none). Similar symptoms previously. Patient has had [...] t8) 2 Clinical Report - Physicians/Mid Levels [facility] Emergency Department [address] [place] [address] Phone #: ext- [phone] 04/01/2021 14:19 [id number] Sex: F : 1965 Age: 55y Dilatation [...] turgor. 3 Clinical Report - Physicians/Mid Levels [facility] Emergency Department [address] [place] [address] Phone #: ext- [phone] 04/01/2021 14:19 Patient: CHANTALE SOLOMON Sex: F : 1965 Age: 55y Extremities: Extremities exhibit normal ROM. No lower extremity edema. Neuro: Oriented X 3. No motor deficit. No sensory deficit.LABS, X-RAYS, AND EKGEKG: EKG time: 14:24 04/01/2021. Irregularly irregular narrow- complex tachycardia (ventricular [id number]). Atrial fibrillation. Normal QRS complex. Non-specific ST [...] (Reference) 4 Clinical Report - Physicians/Mid Levels [facility] Emergency Department [address] [place] [address] Phone #: ext- [phone] 04/01/2021 14:19 Patient: [...] Thrombosis, Pulmonary Embolus, Tissue heart valves, Acute MN Atrial Fibrillation, Valvular heart disease and recurrent Systemic Embolism. -International Normalized Ratio (INR): 2.5 - 3.5 for Mechanical Prosthetic valve. Troponin-T: (SARAH: 04/01/2021 14:37) ( MsgRcvd 04/01/2021 15:44) Final results Test Result Flag Units (Reference) TROPONIN T <0.01 NG/ML (0.00 - 0.10) TROPONIN T0.1 ng/ml Recommended as the clinical threshold value Kathie Maxwell.PROGRESS AND PROCEDURES 5 Clinical Report - Physicians/Mid Levels [facility] Emergency Department [address] [place] [address] Phone #: ext- [phone] 04/01/2021 14:19 Patient: [...] daily. 6 Clinical Report - Physicians/Mid Levels [facility] Emergency Department [address] [place] [address] Phone #: ext- [phone] 04/01/2021 14:19 Patient: CHANTALE SOLOMON Sex: F : 1965 Age: 55y Follow-up: Follow up with your healthcare provider in two days. Reason for referral: evaluation. Summary of care provided to patient via paper.(Electronically signed by Gloria Schneider 04/01/2021 21:28) Name Value Range Interpretation Code Description Data Maura rce(s) Supporting Document(s) ID Date Data Source [id number] 04/01/2021 03:59:00 PM EDT [facility] Name Value Range Interpretation Code Description Data Maura rce(s) Supporting Document(s) Lipase [Enzymatic activity/volume] in Serum or Plasma 23 U/L 13 - 60 [facility] ID Date Data Source [id number] 04/01/2021 03:59:00 PM EDT [facility] Name Value Range Interpretation Code Description Data Maura rce(s) Supporting Document(s) COMPREHENSIVE METABOLIC PANEL [facility] COMPREHENSIVE METABOLIC PANEL Sodium [Moles/volume] in Serum or Plasma 132 mEq/L 134 - 153 L [facility] Potassium [Moles/volume] in Serum or Plasma 3.2 mEq/L 3.6 - 5.0 L [facility] Chloride [Moles/volume] in Serum or Plasma 92 mEq/L 98 - 107 L [facility] Carbon dioxide, total [Moles/volume] in Serum or Plasma 29 MEQ/L 22 - 30 [facility] Glucose [Mass/volume] in Serum or Plasma 117 MG/DL 70 - 99 H [facility] BUN 8 MG/DL 7 - 21 [facility] al Creatinine [Mass/volume] in Serum or Plasma 0.9 MG/DL 0.7 - 1.5 [facility] BUN/CREAT 9 8 - 27 [facility] Protein [Mass/volume] in Serum or Plasma 6.2 G/DL 6.3 - 8.2 L [facility] Albumin [Mass/volume] in Serum or Plasma 3.5 G/DL 3.9 - 5.0 L [facility] Globulin [Mass/volume] in Serum by calculation 2.7 GM/DL 2.4 - 3.2 [facility] A/G RATIO 1.3 0.8 - 2.0 [facility] Calcium [Mass/volume] in Serum or Plasma 8.4 MG/DL 8.4 - 10.2 [facility] Bilirubin.total [Mass/volume] in Serum or Plasma <0.7 MG/DL 0.2 - 1.3 [facility] Alkaline phosphatase [Enzymatic activity/volume] in Serum or Plasma 137 U/L 38 - 126 H [facility] Aspartate aminotransferase [Enzymatic activity/volume] in Serum or Plasma 53 U/L 5 - 40 H [facility] Alanine aminotransferase [Enzymatic activity/volume] in Seru m or Plasma 33 U/L 7 - 56 [facility] Anion gap 3 in Serum or Plasma 11.0 mmol/L 8.0 - 16.0 [facility] AGE 55 yrs [facility] NON-AA GFR >60 mL/min [facility] AFR AMER GFR >60 mL/min [facility] Male GFR In [...] >32 mL/min Normal ID Date Data Source [id number] 04/01/2021 03:44:00 PM EDT [facility] Name Value Range Interpretation Code Description Data Maura rce(s) Supporting Document(s) TROPONIN T <0.01 NG/ML 0.00 - 0.10 [facility] ospital TROPONIN T0.1 ng/ml Recommended as the c linical threshold value forTroponin T. ID Date Data Source [id number] 04/01/2021 03:40:[address] [facility] Name Value Range Interpretation Code Description Data Maura rce(s) Supporting Document(s) CBC W/AUTOMATED DIFF [facility] COMPLETE BLOOD COUNT Leukocytes [#/volume] in Blood by Automated count 3.9 10^3/uL 4.2 - 1 1.0 L [facility] Erythrocytes [#/volume] in Blood by Automated count 3.11 10^6/uL 4. 20 - 5.40 L [facility] Hemoglobin [Mass/volume] in Blood 10.2 g/dL 12.0 - 16.0 L [facility] Hematocrit [Volume Fraction] of Blood by Automated count 30.8 % 3 7.0 - 47.0 L [facility] Erythrocyte mean corpuscular volume [Entitic volume] by Auto mated count 99.0 fL 81.0 - 101 [facility] Erythrocyte mean corpuscular hemoglobin [Entitic mass] by Automated count 32.8 pg 27.0 - 34.0 [facility] Erythrocyte mean corpuscular hemoglobin concentration [Mass/volume] by Automated count 33.1 g/dL 31.0 - 36.0 [facility] Erythrocyte distribution width [Ratio] by Automated count 15.9 % 11.5 - 14.5 H [facility] Platelets [#/volume] in Blood by Automated count 130 10^3/uL 150 - 45 0 L [facility] Platelet mean volume [Entitic volume] in Blood by Automated count 9.9 fL 7.4 - 10.4 [facility] Neutrophils/100 leukocytes in Blood by Automated count 43.4 % 37. 0 - 80.0 [facility] Lymphocytes/100 leukocytes in Blood by Manual count 18.4 % 25.0 - 40.0 L [facility] Monocytes/100 leukocytes in Blood by Automated count 35.1 % 3.0 - 8.0 H [facility] Eosinophils/100 leukocytes in Blood by Automated count 1.8 % 0.0 - 7.0 [facility] 0.3 %IG 1.0 % 0.0 - 0.0 [facility]NR[facility] 0.0 % 0.0 - 0.0 [facility] al Neutrophils [#/volume] in Blood by Automated count 1.67 10^3/uL 2.00 - 6.90 L [facility] Lymphocytes [#/volume] in Blood by Automated count 0.71 10^3/uL 0.60 - 3.40 [facility] Monocytes [#/volume] in Blood by Automated count 1.35 10^3/uL 0.00 - 0.90 H [facility] Eosinophils [#/volume] in Blood by Automated count 0.07 10^3/uL 0.00 - 0.70 [facility] Basophils [#/volume] in Blood by Automated count 0.01 10^3/uL 0.00 - 0.20 [facility] #IG 0.04 10^3/uL 0.00 - 0.10 [facility] #NRBC 0.00 10^3/uL 0.00 - 0.00 [facility] ospital MANUAL DIFF SEE BELOW [facility] Segmented neutrophils/100 leukocytes in Blood by Manual count 42 % 37 - 80 [facility] %LYMPH 19 % 25 - 40 L [facility] %MONO 36 % 3 - 8 H [facility] %EOS 2 % 0 - 7 [facility] 1 RBC MORPH NOT INDICATED [facility] spital ID Date Data Source [id number] 04/01/2021 03:11:00 PM EDT [facility] Name Value Range Interpretation Code Description Data Maura rce(s) Supporting Document(s) Prothrombin time (PT) 23.5 SECONDS 11.0 - 15.5 [facility] INR in Platelet poor plasma by Coagulation assay 2.06 0.93 - 1. 23 H [facility] aPTT in Blood by Coagulation assay 54.3 SECONDS 24.8 - 36.7 H [facility] \\BLDo\\INR INTERPRETATION\\BLDx\\ Therapeutic range for Coumadin and related oral anticoagulants. - International Normalized Ratio (INR): 2.0 - 3.0 for Venous Thrombosis, Pulmonary Embolus, Tissue heart valves, Acute MN Atrial Fibrillation, Valvular heart disease and recurrent Systemic Embolism. - International Normalized Ratio (INR): 2.5 - 3.5 for Mechanical Prosthetic valve. ID Date Data Source [id number] 03/26/2021 02:11:00 PM EDT [facility] ([facility], ) Name Value Range Interpretation Code Description Data Maura rce(s) Supporting Document(s) Sputum Culture Laboratory test result Normal (applies to non-numeric results) [facility] ([facility], ) FULL REPORT IN LAB NOTES ([facility] NORMAL JEROME PRESENT ORGANISM 1: MOLD LIKE ORGANISM QUANTITY OF GROWTH FEW ORGANISM 1: MOLD LIKE ORGANISM Gram Stain Laboratory test result Normal (applies to non-n umeric results) [facility] ([facility], ) QUALITY: GOOD MANY WBCS FEW EPITHELIAL CELLS MANY GRAM POSITIVE COCCI IN PAIRS, CHAINS AND CLUSTERS MODERATE GRAM POSITIVE RODS ID Date Data Source [id number] 03/21/2021 08:20:00 AM EDT [facility] (Osmel Alvarez MD) Name Value Range Interpretation Code Description Data Maura rce(s) Supporting Document(s) Magnesium [Mass/volume] in Serum or Plasma 1.3 mg/dL 1.7-2.2 Belo w low normal [facility] (Osmel Alvarez MD) ID Date Data Source [id number] 03/21/2021 08:20:00 AM EDT [facility] (Osmel Alvarez [...] >32 mL/min Normal ID Date Data Source [id number] 03/21/2021 08:20:00 AM EDT MED[facility] (Osmel Alvarez [...] (Osmel Alvarez MD) ID Date Data Source [id number] 03/21/2021 09:17:00 AM EDT [facility] Name Value Range Interpretation Code Description Data Maura rce(s) Supporting Document(s) Magnesium [Mass/volume] in Serum or Plasma 1.3 MG/DL 1.7 - 2.2 L [facility] ID Date Data Source [id number] 03/21/2021 09:16:00 AM EDT [facility] Name Value Range Interpretation Code Description Data Maura rce(s) Supporting Document(s) COMPREHENSIVE METABOLIC PANEL [facility] COMPREHENSIVE METABOLIC PANEL Sodium [Moles/volume] in Serum or Plasma 139 mEq/L 134 - 153 [facility] Potassium [Moles/volume] in Serum or Plasma 4.1 mEq/L 3.6 - 5.0 [facility] Chloride [Moles/volume] in Serum or Plasma 98 mEq/L 98 - 107 [facility] Carbon dioxide, total [Moles/volume] in Serum or Plasma 31 MEQ/L 22 - 30 H [facility] Glucose [Mass/volume] in Serum or Plasma 116 MG/DL 70 - 99 H [facility] BUN 5 MG/DL 7 - 21 L [facility] Creatinine [Mass/volume] in Serum or Plasma 0.9 MG/DL 0.7 - 1.5 [facility] BUN/CREAT 6 8 - 27 L [facility] Protein [Mass/volume] in Serum or Plasma 5.9 G/DL 6.3 - 8.2 L [facility] Albumin [Mass/volume] in Serum or Plasma 3.5 G/DL 3.9 - 5.0 L [facility] Globulin [Mass/volume] in Serum by calculation 2.4 GM/DL 2.4 - 3.2 [facility] A/G RATIO 1.5 0.8 - 2.0 [facility] Calcium [Mass/volume] in Serum or Plasma 9.2 MG/DL 8.4 - 10.2 [facility] Bilirubin.total [Mass/volume] in Serum or Plasma <0.7 MG/DL 0.2 - 1.3 [facility] Alkaline phosphatase [Enzymatic activity/volume] in Serum or Plasma 87 U/L 38 - 126 [facility] Aspartate aminotransferase [Enzymatic activity/volume] in Serum or Plasma 18 U/L 5 - 40 [facility] Alanine aminotransferase [Enzymatic activity/volume] in Seru m or Plasma 7 U/L 7 - 56 [facility] Anion gap 3 in Serum or Plasma 10.0 mmol/L 8.0 - 16.0 [facility] AGE 55 yrs [facility] al NON-AA GFR >60 mL/min [facility] ital AFR AMER GFR >60 mL/min [facility] spital Male GFR In [...] >32 mL/min Normal ID Date Data Source [id number] 03/21/2021 08:49:00 AM EDT [facility] Name Value Range Interpretation Code Description Data Maura rce(s) Supporting Document(s) CBC W/AUTOMATED DIFF [facility] COMPLETE BLOOD COUNT Leukocytes [#/volume] in Blood by Automated count 7.6 10^3/uL 4.2 - 1 1.0 [facility] Erythrocytes [#/volume] in Blood by Automated count 3.24 10^6/uL 4. 20 - 5.40 L [facility] Hemoglobin [Mass/volume] in Blood 10.9 g/dL 12.0 - 16.0 L [facility] Hematocrit [Volume Fraction] of Blood by Automated count 33.4 % 3 7.0 - 47.0 L [facility] Erythrocyte mean corpuscular volume [Entitic volume] b y Automated count 103.1 fL 81.0 - 101 H [facility] Erythrocyte mean corpuscular hemoglobin [Entitic mass] by Automated count 33.6 pg 27.0 - 34.0 [facility] Erythrocyte mean corpuscular hemoglobin concentration [Mass/volume] by Automated count 32.6 g/dL 31.0 - 36.0 [facility] Erythrocyte distribution width [Ratio] by Automated count 17.2 % 11.5 - 14.5 H [facility] Platelets [#/volume] in Blood by Automated count 351 10^3/uL 150 - 45 0 [facility] Platelet mean volume [Entitic volume] in Blood by Automated count 8.8 fL 7.4 - 10.4 [facility] Neutrophils/100 leukocytes in Blood by Automated count 70.9 % 37. 0 - 80.0 [facility] Lymphocytes/100 leukocytes in Blood by Manual count 12.5 % 25.0 - 40.0 L [facility] Monocytes/100 leukocytes in Blood by Automated count 12.8 % 3.0 - 8.0 H [facility] Eosinophils/100 leukocytes in Blood by Automated count 2.2 % 0.0 - 7.0 [facility] Basophils/100 leukocytes in Blood by Automated count 1.1 % 0.0 - 2.5 [facility] %IG 0.5 % 0.0 - 0.0 [facility] %NR[facility] 0.0 % 0.0 - 0.0 [facility] al Neutrophils [#/volume] in Blood by Automated count 5.39 10^3/uL 2.00 - 6.90 [facility] Lymphocytes [#/volume] in Blood by Automated count 0.95 10^3/uL 0.60 - 3.40 [facility] Monocytes [#/volume] in Blood by Automated count 0.97 10^3/uL 0.00 - 0.90 H [facility] Eosinophils [#/volume] in Blood by Automated count 0.17 10^3/uL 0.00 - 0.70 [facility] Basophils [#/volume] in Blood by Automated count 0.08 10^3/uL 0.00 - 0.20 [facility] #IG 0.04 10^3/uL 0.00 - 0.10 [facility] #NRBC 0.00 10^3/uL 0.00 - 0.00 [facility] MANUAL DIFF NOT INDICATED [facility] RBC MORPH NOT INDICATED [facility] ID Date Data Source [id number] 03/16/2021 07:55:00 AM EDT [facility] (Osmel Alvarez [...] finding (navigational concept) 0.05 10^3/uL 0.00-0.20 [facility] (Osmle Alvarez MD) Laboratory test finding [...] NONE SEEN ) ID Date Data Source [id number] 03/16/2021 07:55:00 AM EDT [facility] (Osmel Alvarez [...] (Osmel Alvarez MD) ID Date Data Source [id number] 03/16/2021 07:55:00 AM EDT [facility] (Osmel Alvarez [...] (Osmel Alvarez MD) ID Date Data Source [id number] 03/16/2021 07:55:00 AM EDT [facility] (Osmel Alvarez MD) Name Value Range Interpretation Code Description Data Maura rce(s) Supporting Document(s) Cobalamin (Vitamin B12) [Mass/volume] in Serum or Plasma 573 pg/mL 2 32-1245 [facility] (Osmel Alvarez MD) ID Date Data Source [id number] 03/16/2021 07:55:00 AM EDT [facility] (Osmel Alvarez MD) Name Value Range Interpretation Code Description Data Maura rce(s) Supporting Document(s) Laboratory test finding (navigational concept) Laboratory test result [facility] (Osmel Alvarez MD) COMPREHENSIVE METABOLIC PANEL Laboratory test finding (navigational concept) 93 meq/L 98-107 Below low normal [facility] (Osmel [...] >32 mL/min Normal ID Date Data Source [id number] 03/16/2021 10:06:00 AM EDT [facility] Name Value Range Interpretation Code Description Data Maura rce(s) Supporting Document(s) Cobalamin (Vitamin B12) [Mass/volume] in Serum or Plasma 573 PG/ML 232 - 1245 [facility] ID Date Data Source [id number] 03/16/2021 08:37:00 AM EDT [facility] Name Value Range Interpretation Code Description Data Maura rce(s) Supporting Document(s) Magnesium [Mass/volume] in Serum or Plasma 0.9 MG/DL 1.7 - 2.2 LL [facility] CALL/ READ BACK KIM MATA RN [facility] BY: DESIRAE [facility] DATE/TIME 03.16.21904 [facility] ID Date Data Source [id number] 03/16/2021 08:57:00 AM EDT [facility] Name Value Range Interpretation Code Description Data Maura rce(s) Supporting Document(s) Thyrotropin [Units/volume] in Serum or Plasma by Detec tion limit <= 0.05 mIU/L 1.34 uIU/mL 0.47 - 5.01 [facility] ID Date Data Source [id number] 03/16/2021 08:57:00 AM EDT [facility] Name Value Range Interpretation Code Description Data Maura rce(s) Supporting Document(s) Thyroxine (T4) free index in Serum or Plasma by calculation 1.54 NG/DL 0.93 - 1.70 [facility] ID Date Data Source [id number] 03/16/2021 08:37:00 AM EDT [facility] Name Value Range Interpretation Code Description Data Maura rce(s) Supporting Document(s) Iron [Mass/volume] in Serum or Plasma 46 UG/DL 42 - 135 [facility] ID Date Data Source [id number] 03/16/2021 08:37:00 AM EDT [facility] Value Range Interpretation Code Description Data Maura rce(s) Supporting Document(s) COMPREHENSIVE METABOLIC PANEL [facility] COMPREHENSIVE METABOLIC PANEL Sodium [Moles/volume] in Serum or Plasma 139 mEq/L 134 - 153 [facility] Potassium [Moles/volume] in Serum or Plasma 3.3 mEq/L 3.6 - 5.0 L [facility] Chloride [Moles/volume] in Serum or Plasma 93 mEq/L 98 - 107 L [facility] Carbon dioxide, total [Moles/volume] in Serum or Plasma 33 MEQ/L 22 - 30 H [facility] Glucose [Mass/volume] in Serum or Plasma 117 MG/DL 70 - 99 H [facility] BUN 6 MG/DL 7 - 21 L [facility] Creatinine [Mass/volume] in Serum or Plasma 0.8 MG/DL 0.7 - 1.5 [facility] BUN/CREAT 8 8 - 27 [facility] Protein [Mass/volume] in Serum or Plasma 6.0 G/DL 6.3 - 8.2 L [facility] Albumin [Mass/volume] in Serum or Plasma 3.7 G/DL 3.9 - 5.0 L [facility] Globulin [Mass/volume] in Serum by calculation 2.3 GM/DL 2.4 - 3.2 L [facility] A/G RATIO 1.6 0.8 - 2.0 [facility] Calcium [Mass/volume] in Serum or Plasma 7.9 MG/DL 8.4 - 10.2 L [facility] Bilirubin.total [Mass/volume] in Serum or Plasma <0.7 MG/DL 0.2 - 1.3 [facility] Alkaline phosphatase [Enzymatic activity/volume] in Serum or Plasma 91 U/L 38 - 126 [facility] Aspartate aminotransferase [Enzymatic activity/volume] in Serum or Plasma 20 U/L 5 - 40 [facility] Alanine aminotransferase [Enzymatic activity/volume] in Seru m or Plasma 9 U/L 7 - 56 [facility] Anion gap 3 in Serum or Plasma 13.0 mmol/L 8.0 - 16.0 [facility] AGE 55 yrs [facility] NON-AA GFR >60 mL/min [facility] ital AFR AMER GFR >60 mL/min [facility] Male GFR In [...] >32 mL/min Normal ID Date Data Source [id number] 03/16/2021 08:31:00 AM EDT [facility] Name Value Range Interpretation Code Description Data Maura rce(s) Supporting Document(s) CBC W/AUTOMATED DIFF [facility] COMPLETE BLOOD COUNT Leukocytes [#/volume] in Blood by Automated count 9.2 10^3/uL 4.2 - 1 1.0 [facility] Erythrocytes [#/volume] in Blood by Automated count 3.26 10^6/uL 4. 20 - 5.40 L [facility] Hemoglobin [Mass/volume] in Blood 11.0 g/dL 12.0 - 16.0 L [facility] Hematocrit [Volume Fraction] of Blood by Automated count 33.0 % 3 7.0 - 47.0 L [facility] Erythrocyte mean corpuscular volume [Entitic volume] b y Automated count 101.2 fL 81.0 - 101 H [facility] Erythrocyte mean corpuscular hemoglobin [Entitic mass] by Automated count 33.7 pg 27.0 - 34.0 [facility] Erythrocyte mean corpuscular hemoglobin concentration [Mass/volume] by Automated count 33.3 g/dL 31.0 - 36.0 [facility] Erythrocyte distribution width [Ratio] by Automated count 17.4 % 11.5 - 14.5 H [facility] Platelets [#/volume] in Blood by Automated count 333 10^3/uL 150 - 45 0 [facility] Platelet mean volume [Entitic volume] in Blood by Automated count 9.0 fL 7.4 - 10.4 [facility] Neutrophils/100 leukocytes in Blood by Automated count 75.4 % 37. 0 - 80.0 [facility] Lymphocytes/100 leukocytes in Blood by Manual count 9.7 % 25.0 - 40.0 L [facility] Monocytes/100 leukocytes in Blood by Automated count 13.2 % 3.0 - 8.0 H [facility] Eosinophils/100 leukocytes in Blood by Automated count 0.8 % 0.0 - 7.0 [facility] Basophils/100 leukocytes in Blood by Automated count 0.5 % 0.0 - 2.5 [facility] %IG 0.4 % 0.0 - 0.0 H [facility] %NRBC 0.0 % 0.0 - 0.0 [facility] Neutrophils [#/volume] in Blood by Automated count 6.94 10^3/uL 2.00 - 6.90 H [facility] Lymphocytes [#/volume] in Blood by Automated count 0.89 10^3/uL 0.60 - 3.40 [facility] Monocytes [#/volume] in Blood by Automated count 1.21 10^3/uL 0.00 - 0.90 H [facility] Eosinophils [#/volume] in Blood by Automated count 0.07 10^3/uL 0.00 - 0.70 [facility] Basophils [#/volume] in Blood by Automated count 0.05 10^3/uL 0.00 - 0.20 [facility] #IG 0.04 10^3/uL 0.00 - 0.10 [facility] #NRBC 0.00 10^3/uL 0.00 - 0.00 [facility] ospital MANUAL DIFF SEE BELOW [facility] ital Segmented neutrophils/100 leukocytes in Blood by Manual count 81 % 37 - 80 H [facility] %LYMPH 4 % 25 - 40 L [facility] al %MONO 14 % 3 - 8 H [facility] al %EOS 1 % 0 - 7 [facility] RBC MORPH [facility] BELOW [facility] Anisocytosis [Presence] in Blood by Light microscopy 1+ SHAUNA L: NONE SEEN A [facility] HYPO 1+ NORMAL: NONE SEEN A [facility] { SICKLE CELL (NORMAL: NONE SEEN ) Stomatocytes [Presence] in Blood by Light microscopy 1+ SHAUNA L: NONE SEEN A [facility] COMMENT: ID Date Data Source [id number] 03/14/2021 10:37:00 AM EDT [facility] [address] [place] [address] PHONE: [phone] FAX: [phone] Name .................. : JUANITO Daniels Acct Number.................. : [id number] ROOM. ................. : Number ................... : [id number] Stay type ............. : O/P Discharge Date......... ... : 03/13/21 Admit Date ......... : 03/13/21 Admit Phys .................... : KIM VANESSA Date of ....... : 1965 Family Phys ................... : SEQUEIRA Phone .................. : [phone] Age ................................ : 55 Film# .................. .:[id number] Sex ................................. : F Unsigned transcriptions are preliminary reports and do not represent a medical or legal document CT THORAX W/O CONTRAST [id number] COMPLETE:03/13/21 10:32 [facility] [address] Reason for Exam: COPD CT OF THE [...] imperative reconstructive techniques. Page 1 of 2 [facility] [address] [place] [address] PHONE: [phone] FAX: [phone] Name .................. : JUANITO Daniels Acct Number.................. : [id number] ROOM. ................. : MR Number ................... : [id number] Stay type ............. : O/P Discharge Date......... ... : 03/13/21 Admit Date ......... : 03/13/21 Admit Phys .................... : KIM MENDEZ Date of ....... : 1965 Family Phys ................... : REGINE GAIL Phone .................. : [phone] Age ................................ : 55 Film# .................. .:[id number] Sex ................................. : F Unsigned transcriptions are preliminary reports and do not represent a medical or legal document CT THORAX W/O CONTRAST [id number] COMPLETE:03/13/21 10:32 [facility] [address] Reason for Exam: COPD CT dose: 523 mGycm Electronically Reviewed and Signed By Elier Rodríguez MD , 03/14/21 10:37, AML Transcribe Initials: DZ , Transcribe Date: 03/13/21 20:44, Dictation Date: Copy for: KIM ESTEVES via modem Copy for: 710 MED REC Page 2 of 2 Name Value Range Interpretation Code Description Data Maura rce(s) Supporting Document(s) ID Date Data Source [id number] 03/08/2021 11:36:00 AM EDT [facility] (Osmel Alvarez MD) Name Value Range Interpretation Code Description Data Maura rce(s) Supporting Document(s) Laboratory test finding (navigational concept) Laboratory test result [facility] (Osmel Alvarez MD) _CULTURE URINE_ ^$[id number] ^^113516 $$933766 ^^099869 $$110332 $$439524 $$216199 $$835594 $$405742 $$888620 $$607623 $$656080 $$526063 $$430459 $$833027 $$565924 $$382746 $$489149 $$922018 $$739384 $$722408 $$897558 $$422404 $$733839 $$457648 $$132804 $$054701 ^^787076 $$304101 $$993336 $$[id number] -- Continued on next page -- Patient: JUANITO Daniels Order: [id number] Page 2 Culture: CULTURE URINE Status: Final -- Continued on next page -- Patient: JUANITO Daniels Order: [id number] Page 2 Culture: CULTURE URINE Status: Prelim $$[id number] $$[id number] REPORTED DATE/TIME: 03/13/2021 07:06 Culture: CULTURE URINE Status: Final Urine Culture,Comprehensive: P1 No growth in 36 - 48 hours. Previous result entered on 03/10/2021 23:58 ET No growth after 18-24 hours. P1 Test performed by: [facility] DAMON #: [id number] [address] [place] [address] [id number] [facility] [id number] Steam Room Attendant : Yonas Rascon MD NPI #: [employer]rain [employer] : 03/12/[email or web address].SENT REF 03/13/21.0736.XMT.SENT REF ID Date Data Source [id number] 03/08/2021 11:36:00 AM EDT [facility] (Osmel Alvarez MD) Name Value Range Interpretation Code Description Data Maura rce(s) Supporting Document(s) Magnesium [Mass/volume] in Serum or Plasma 1.0 mg/dL 1.7-2.2 Belo w low normal [facility] (Osmel Alvarez MD) ID Date Data Source [id number] 03/08/2021 11:36:00 AM EDT [facility] (Osmel Alvarez [...] (Osmel Alvarez MD) ID Date Data Source [id number] 03/08/2021 11:36:00 AM EDT [facility] (Osmel Alvarez MD) Name Value Range Interpretation Code Description Data Maura rce(s) Supporting Document(s) Cobalamin (Vitamin B12) [Mass/volume] in Serum or Plasma 527 pg/mL 2 32-1245 [facility] (Osmel Alvarez MD) ID Date Data Source [id number] 03/08/2021 11:36:00 AM EDT [facility] (Osmel Alvarez [...] >32 mL/min Normal ID Date Data Source [id number] 03/08/2021 11:36:00 AM EDT [facility] (Osmel Alvarez MD) Name Value Range Interpretation Code Description Data Maura rce(s) Supporting Document(s) Iron [Mass/volume] in Serum or Plasma 41 ug/dL 42-135 Below low normal [facility] (Osmel Alvarez MD) Hemoglobin A1c/Hemoglobin.total in Blood 4.8 % 4.4-6.1 [facility] (Osmel Alvarez MD) {A1] {HB] ID Date Data Source [id number] 03/08/2021 11:36:00 AM EDT [facility] (Osmel Alvarez [...] (navigational concept) 76 % 37-80 [facility] (Osmel Alvraez MD) Laboratory test finding (navigational concept) 10 [...] Alvarez MD) COMMENT: ID Date Data Source [id number] 03/13/2021 07:36:00 AM EDT [facility] Name Value Range Interpretation Code Description Data Maura rce(s) Supporting Document(s) CULTURE URINE [facility] _CULTURE URINE_$$[id number]$$[id number]$$524274$$792549$$658180$$719074$$083161$$944204$$515304$$ 973383$$340385$$780840$$911592$$853910$$537123$$071914$$206066$$644768$$235397$$ 597588$$158176$$301272$$014646$$525772$$770226$$232946$$785720 -- Continued on next page --Patient: JUANITO ROMAN Jeremiah Order: [id number] Page 2Culture: CULTURE URINE Status: Final ==== -- Continued on next page --Patient: JUANITO ROMAN Jeremiah Order: [id number] Page 2Culture: CULTURE URINE Status: Prelim =====$$[id number]$$[id number] DATE/TIME: 03/13/2021 07:06Culture: CULTURE URINE Status: FinalUrine Culture,Comprehensive: P1No growth in 36 - 48 hours. Previous result entered on 03/10/2021 23:58 ET No growth after 18-24 hours.P1 Test performed by: [facility] #: [id number] [address] [id number] [facility] [address]Rxmoufs Director : Yonas Rascon MD NPI #:Grain Distributor : 03/12/21.0627.XMT.SENT REF 03/13/21.0736.XMT.SENT REF ID Date Data Source [id number] 03/08/2021 01:35:00 PM EDT [facility] Name Value Range Interpretation Code Description Data Maura rce(s) Supporting Document(s) Magnesium [Mass/volume] in Serum or Plasma 1.0 MG/DL 1.7 - 2.2 L [facility] ID Date Data Source [id number] 03/08/2021 12:59:00 PM EDT [facility] Name Value Range Interpretation Code Description Data Maura rce(s) Supporting Document(s) COMPREHENSIVE METABOLIC PANEL [facility] COMPREHENSIVE METABOLIC PANEL Sodium [Moles/volume] in Serum or Plasma 141 mEq/L 134 - 153 [facility] Potassium [Moles/volume] in Serum or Plasma 4.1 mEq/L 3.6 - 5.0 [facility] Chloride [Moles/volume] in Serum or Plasma 97 mEq/L 98 - 107 L [facility] Carbon dioxide, total [Moles/volume] in Serum or Plasma 34 MEQ/L 22 - 30 H [facility] Glucose [Mass/volume] in Serum or Plasma 96 MG/DL 70 - 99 [facility] BUN 8 MG/DL 7 - 21 [facility] Creatinine [Mass/volume] in Serum or Plasma 0.9 MG/DL 0.7 - 1.5 [facility] BUN/CREAT 9 8 - 27 [facility] al Protein [Mass/volume] in Serum or Plasma 5.7 G/DL 6.3 - 8.2 L [facility] Albumin [Mass/volume] in Serum or Plasma 3.5 G/DL 3.9 - 5.0 L [facility] Globulin [Mass/volume] in Serum by calculation 2.2 GM/DL 2.4 - 3.2 L [facility] A/G RATIO 1.6 0.8 - 2.0 [facility] Calcium [Mass/volume] in Serum or Plasma 7.5 MG/DL 8.4 - 10.2 L [facility] Bilirubin.total [Mass/volume] in Serum or Plasma <0.7 MG/DL 0.2 - 1.3 [facility] Alkaline phosphatase [Enzymatic activity/volume] in Serum or Plasma 75 U/L 38 - 126 [facility] Aspartate aminotransferase [Enzymatic activity/volume] in Serum or Plasma 18 U/L 5 - 40 [facility] Alanine aminotransferase [Enzymatic activity/volume] in Seru m or Plasma 8 U/L 7 - 56 [facility] Anion gap 3 in Serum or Plasma 10.0 mmol/L 8.0 - 16.0 [facility] AGE 55 yrs [facility] al NON-AA GFR >60 mL/min [facility] ital AFR AMER GFR >60 mL/min [facility] Male GFR In [...] >32 mL/min Normal ID Date Data Source [id number] 03/08/2021 01:15:00 PM EDT [facility] Name Value Range Interpretation Code Description Data Maura rce(s) Supporting Document(s) URINALYSIS [facility] yellow NORMAL: Yellow [facility] CLARITY hazy NORMAL: Clear [facility] Specific gravity of Urine by Test strip 1.015 1.001 - 1.030 [facility] pH 6 5 - 9 [facility] al Glucose [Mass/volume] in Urine by Test strip NORM NORMAL: Negat [facility] Bilirubin.total [Presence] in Urine by Test strip NEG NORMAL: Negative [facility] Ketones [Presence] in Urine by Test strip 5 NORMAL: Negative [facility] Protein [Mass/volume] in Urine by Test strip 30 NORMAL: Negat [facility] Nitrite [Presence] in Urine by Test strip NEG NORMAL: Negative [facility] BLOOD 10 NORMAL: Negative [facility] Leukocyte esterase [Presence] in Urine by Test strip NEG SHAUNA L: Negative [facility] Urobilinogen [Mass/volume] in Urine by Test strip 1 less lupe n 1.0 mg/dL [facility] MICROSCOPIC See Below [facility] ital WBC 0 - 1 NORMAL: NONE SEEN [facility] Erythrocytes [#/volume] in Urine by Test strip None Seen NORMAL: NON E SEEN [facility] EPITHELIAL MODERATE NORMAL: NONE SEEN [facility] Bacteria [Presence] in Urine sediment by Light microscopy Tr david NORMAL: NONE SEEN [facility] ID Date Data Source [id number] 03/08/2021 01:12:00 PM EDT [facility] Name Value Range Interpretation Code Description Data Maura rce(s) Supporting Document(s) Cobalamin (Vitamin B12) [Mass/volume] in Serum or Plasma 527 PG/ML 232 - 1245 [facility] ID Date Data Source [id number] 03/08/2021 12:53:00 PM EDT [facility] Name Value Range Interpretation Code Description Data Maura rce(s) Supporting Document(s) Iron [Mass/volume] in Serum or Plasma 41 UG/DL 42 - 135 L [facility] ID Date Data Source [id number] 03/08/2021 12:17:00 PM EDT [facility] Name Value Range Interpretation Code Description Data Maura rce(s) Supporting Document(s) Hemoglobin A1c/Hemoglobin.total in Blood 4.8 % 4.4 - 6.1 [facility] {A1]{HB] ID Date Data Source [id number] 03/08/2021 12:06:00 PM EDT [facility] Name Value Range Interpretation Code Description Data Maura [facility] clare(s) Supporting Document(s) CBC W/AUTOMATED DIFF [facility] COMPLETE BLOOD COUNT Leukocytes [#/volume] in Blood by Automated count 8.6 10^3/uL 4.2 - 1 1.0 [facility] Erythrocytes [#/volume] in Blood by Automated count 2.96 10^6/uL 4. 20 - 5.40 L [facility] Hemoglobin [Mass/volume] in Blood 10.1 g/dL 12.0 - 16.0 L [facility] Hematocrit [Volume Fraction] of Blood by Automated count 31.1 % 3 7.0 - 47.0 L [facility] Erythrocyte mean corpuscular volume [Entitic volume] b y Automated count 105.1 fL 81.0 - 101 H [facility] Erythrocyte mean corpuscular hemoglobin [Entitic mass] by Automated count 34.1 pg 27.0 - 34.0 H [facility] Erythrocyte mean corpuscular hemoglobin concentration [Mass/volume] by Automated count 32.5 g/dL 31.0 - 36.0 [facility] Erythrocyte distribution width [Ratio] by Automated count 17.8 % 11.5 - 14.5 H [facility] Platelets [#/volume] in Blood by Automated count 314 10^3/uL 150 - 45 0 [facility] Platelet mean volume [Entitic volume] in Blood by Automated count 8.8 fL 7.4 - 10.4 [facility] Neutrophils/100 leukocytes in Blood by Automated count 71.5 % 37. 0 - 80.0 [facility] Lymphocytes/100 leukocytes in Blood by Manual count 9.2 % 25.0 - 40.0 L [facility] Monocytes/100 leukocytes in Blood by Automated count 16.8 % 3.0 - 8.0 H [facility] Eosinophils/100 leukocytes in Blood by Automated count 0.5 % 0.0 - 7.0 [facility] Basophils/100 leukocytes in Blood by Automated count 0.8 % 0.0 - 2.5 [facility] %IG 1.2 % 0.0 - 0.0 H [facility] al %NRBC 0.0 % 0.0 - 0.0 [facility] al Neutrophils [#/volume] in Blood by Automated count 6.13 10^3/uL 2.00 - 6.90 [facility] Lymphocytes [#/volume] in Blood by Automated count 0.79 10^3/uL 0.60 - 3.40 [facility] Monocytes [#/volume] in Blood by Automated count 1.44 10^3/uL 0.00 - 0.90 H [facility] Eosinophils [#/volume] in Blood by Automated count 0.04 10^3/uL 0.00 - 0.70 [facility] Basophils [#/volume] in Blood by Automated count 0.07 10^3/uL 0.00 - 0.20 [facility] #IG 0.10 10^3/uL 0.00 - 0.10 [facility] #NRBC 0.00 10^3/uL 0.00 - 0.00 [facility] MANUAL DIFF SEE BELOW [facility] Segmented neutrophils/100 leukocytes in Blood by Manual count 76 % 37 - 80 [facility] %LYMPH 12 % 25 - 40 L [facility] al %MONO 10 % 3 - 8 H [facility] al %EOS 2 % 0 - 7 [facility] al RBC MORPH SEE BELOW [facility] al Anisocytosis [Presence] in Blood by Light microscopy 1+ SHAUNA L: NONE SEEN A [facility] Poikilocytosis [Presence] in Blood by Light microscopy 1+ NOR MAL: NONE SEEN A [facility] HYPO 1+ NORMAL: NONE SEEN A [facility] { SICKLE CELL (NORMAL: NONE SEEN ) Ovalocytes [Presence] in Blood by Light microscopy 1+ NORMAL: NONE SEEN A [facility] Stomatocytes [Presence] in Blood by Light microscopy 1+ SHAUNA L: NONE SEEN A [facility] COMMENT: ID Date Data Source [id number] 02/17/2021 09:57:00 PM EDT [facility] Name Value Range Interpretation Code Description Data Maura rce(s) Supporting Document(s) SARS coronavirus 2 RNA panel NEG N [facility] This lab was ordered by [facility] and repor domenico by [facility]. ID Date Data Source [id number] 02/09/2021 04:00:00 PM EDT [facility] Name Value Range Interpretation Code Description Data Maura rce(s) Supporting Document(s) SARS coronavirus 2 RNA [Presence] in Res piratory specimen by DAR with probe detection NEGATIVE [facility] This lab was ordered by [facility] a nd reported by [facility]. ID Date Data Source [id number] 02/02/2021 05:02:00 AM EDT [address] [place] [address] RESPIRATORY CARE REPORT ==== ---------NAME------- NUMBER SEX AGE ADMIT DISC. XRAY# F/C TYPEHOFFMAN CHANTALE E [id number] F 55 01/31/21 01/31/21 [id number] [facility] E/R DATE OF : 1965 M/R# [id number] PH#: [phone] TR-02 LOCATION: [place] [id number] COMP LETE:02/01/21 02:55 [place]MT [id number] PHYSICIAN: LAVERNE STUBBS Name Value Range Interpretation Code Description Data Maura rce(s) Supporting Document(s) ID Date Data Source [id number] 02/01/2021 09:29:00 [place] [address] PHONE: [phone] FAX: [phone] Name .................. : JUANITO Daniels Acct Number.................. : [id number] ROOM. ................. : - Number ................... : [id number] Stay type ............. : E/R Discharge Date......... ... : 01/31/21 Admit Date ......... : 01/31/21 Admit Phys .................... : LAVERNE STUBBS Date of ....... : 1965 Family Phys ................... : SEQUEIRA Phone .................. : [phone] Age ................................ : 55 Film# .................. .:[id number] Sex ................................. : F Unsigned transcriptions are preliminary reports and do not represent a medical or legal document CHEST PORTABLE [id number] COMPLETE:01/31/21 17:41 [id number] Reason(s): COPD PO RTABLE [...] By Jimmy Ashby M.D. , 02/01/21 09:29, RIY Transcribe Initials: REYES , Transcribe Date: 01/31/21 19:03, Dictation Date: Copy for: EMERGENCY DEPT via [employer] Copy for: 710 MED REC DISCHARGED Page 1 of 1 Name Value Range Interpretation Code Description Data Mauar rce(s) Supporting Document(s) ID Date Data Source [id number] 01/31/2021 05:29:00 PM EDT [facility] 1 OrderSheet [facility] Emergency Department [address] [place] [address] Phone #: ext- [phone] 01/31/2021 17:27 Patient: CHANTALE SOLOMON Sex: F : 1965 Age: 55yWEIGHT:80.5 kg (M) HEIGHT:60 inches (S) BMI:34.7ALLERGIES: Penicillins, SeafoodCHIEF COMPLAINT: coughDIAGNOSIS: Hemoptysis, Chronic obstructive lung disease, Malignant tumor of lungLAB ORDERSOrder Description Priority Entered Acknowledged InitialedCBC w Diff STAT 17:41 01/31/2021 17:56 Lakeshia, Laverne, Maria T Meghann R.N. M.D.;CMP STAT 17:41 01/31/2021 17:56 Lakeshia, Turrin, Maria T Meghann R.N. M.D.;Lipase STAT 17:41 01/31/2021 17:56 Petroleum, Olyarin, Maria T Meghann R.N. M.D.;PT/PTT STAT 17:41 01/31/2021 17:56 Lakeshia, Turrin, Maria T Meghann R.N. M.D.;Troponin-T STAT 17:41 01/31/2021 17:56 Petroleum, Olyarin, Maria T Meghann R.N. M.D.;BNP STAT 17:41 01/31/2021 17:56 Petroleum, Olyarin, Maria T Meghann R.N. M.D.;Lactic Acid STAT 17:42 01/31/2021 17:56 Lakeshia, Laverne, Maria T Meghann R.N. M.D.;Blood Culture STAT 17:42 01/31/2021 17:56 Petroleum,q10m X2 (Sched Turrin, Maria T Meghann R.N.17:42 01/31/2021) Leida;Blood Culture STAT 17:42 01/31/2021 17:56 Petroleum,q10m X2 (Sched Turrin, Maria T Meghann R.N.17:52 01/31/2021) Leida;COVID-19 CAH STAT 17:42 01/31/2021 18:09 Pravin(Symptomatic as Turrin, Maria T Leilani R.N.Defined by CDC) Leida;(01/31/2021) (Not 2 OrderSheet [facility] Emergency Department [address] [place] [address] Phone #: ext- [phone] 01/31/2021 17:27 [id number] Sex[facility] F : 1965 Age: 55yFirst Test) [...] M.D.;DuoNeb 3 mL X2 17:42 01/31/2021 18:14 Petroleum,Doses (Filtered): 6 Laverne, Maria T Zavaleta R.N.mL (3 mL X2 M.D.;Doses)SOLU-Medrol 125 17:42 01/31/2021 18:15 Petroleum,mg IV X1 Dose: 125 Laverne, Maria T Zavaleta R.N.mg (X1) M.D.;Morphine IVP 2 mg 17:43 01/31/2021 18:15 Petroleum,(HIGH ALERT Maria T Galloway R.N.MEDICATION) M.DKellen;- (Tranexamic Acid 18:10 01/31/2021 Ack'd: 18:15 18:24 Lakeshia,(TXA) 500 mg as Maria T Galloway Jennifer Jennifer R.N.nebulization) MKellenDKellen; R.N.GENERAL ORDERSOrder Description Priority Entered Acknowledged InitialedBlood Pressure 17:41 01/31/2021 17:56 Lakeshia,Monitor Maria T Galloway R.N. 3 OrderSheet [facility] Emergency Department [address] [place] [address] Phone #: ext- [phone] 01/31/2021 17:27 [id number] Sex: F : 1965 Age: 55y M.D.;Medical Writer 17:41 01/31/2021 17:56 Lakeshia(continuous) Maria T Galloway [...] R.N., M.D.;[Electronically signed by Leilani Costello R.N. (19:00 01/31/2021)][Electronically signed by Maria T Ross M.D. (19:04 01/31/2021)] 4 OrderSheet [facility] Emergency Department [address] [place] [address] Phone #: ext- [phone] 01/31/2021 17:27 [id number] Sex: F : 1965 Age: 55y[Electronically locked by Leilani Costello R.N. (19:00 01/31/2021)] Name Value Range Interpretation Code Description Data Maura rce(s) Supporting Document(s) ID Date Data Source [id number] 01/31/2021 05:29:00 PM EDT [facility] 1 Medication Reconciliation Report [facility] Emergency Department [address] [place] [address] Phone #: ext- [phone] 01/31/2021 17:27 Patient: [...] the Emergency Department: 2 Medication Reconciliation Report [facility] Emergency Department [address] [place] [address] Phone #: ext- [phone] 01/31/2021 17:27 Patient: CHANTALE SOLOMON Sex: F : 1965 Age: 55yNS [IV] IV Fluids bolus 0, then 150 mL/hr, administered: 18:10 01/31/2021uoneb [Neb Tx] Neb TX 2 unit dose, administered: 18:10 01/31/2021olu-Medrol [IVP] IVP 125 mg, administered: 18:10 01/31/2021Morphine [ IVP] IVP 2 mg diluted in NS 10 mL, administered: 18:12 01/31/2021Tranexamic Acid 500mg in 5 cc NS neb Neb TX 1, administered: 18:24 01/31/2021The following Medications were prescribed to the patient:None. Name Value Range Interpretation Code Description Data Maura rce(s) Supporting Document(s) ID Date Data Source [id number] 01/31/2021 05:29:00 PM EDT [facility] 1 Medication Administration Record [facility] Emergency Department [address] [place] [address] Phone #: ext- [phone] 01/31/2021 17:27 Patient: [...] rce(s) Supporting Document(s) ID Date Data Source [id number] 01/31/2021 05:29:00 PM EDT [facility] 1 General Instructions [facility] Emergency Department [address] [place] [address] Phone #: ext- [phone] 01/31/2021 17:27 Patient: CHANTALE SOLOMON Sex: F : 1965 Age: 55yMassive hemoptysis.Metastatic, advanced left upper lobe and lower lobe lung cancer.Acute exacerbation of COPD (emphysematous).(Electronically signed by Maria T Galloway M.D. 01/31/2021 19:04) Name Value Range Interpretation Code Description Data Maura rce(s) Supporting Document(s) ID Date Data Source [id number] 01/31/2021 05:29:00 PM EDT [facility] 1 Clinical Report - Nurses [facility] Emergency Department [address] [place] [address] Phone #: ext- [phone] 01/31/2021 17:27 Patient: CHANTALE SOLOMON Sex: F [...] is currently on Levaquin per Dr. Parnell (state pilot), started that today first dose at 0600. Pt statesDr. Radha feels "something is going on with my lungs like a pneumonia". Pt wears 2LNC chronically andstates "i feel like my lungs are full of fluid". Pt is on Xarelto). ( chest pressure).Treatment DRAMATIC READER:(Levaquin last dose at 0600; Tylenol last dose [...] Asher R.N.Allergies 2 Clinical Report - Nurses [facility] [address] Phone #: ext- [phone] 01/31/2021 17:27 Patient: [...] care plan (FULL CODE). --17:36 01/31/21 Meghann Ahser R.N.P HYSICAL ASSESSMENTlate entry - 17:50 01/31/21. To room via wheelchair.GENERAL / NEURO / PSYCH: Alert. Oriented X 4. Appears in no acute distress.HEENT: Mucous membranes are pink. 3 Clinical Report - Nurses [facility] Emergency Department [address] [place] [address] Phone #: ext- [phone] 01/31/2021 17:27 Patient: [...] cannula; (pt 87 % on pt normal 2LNC).hospital monitor, NIBP monitor and pulse oximeter placed on patient; cardiac rehab nurse- Lead II; monitoralarms on; monitor strip added [...] 2 minute(s) 4 Clinical Report - Nurses [facility] Emergency Department [address] [place] [address] Phone #: ext- [phone] 01/31/2021 17:27 Patient: [...] blood has slowed down, [facility]). --19:00 01/31/21 Leilani Costello R.N.18:24 [...] improvement in 5 Clinical Report - Nurses [facility] Emergency Department [address] [place] [address] Phone #: ext- [phone] 01/31/2021 17:27 Patient: [...] and care was transferred. (Angie FLORES in [facility] ER). --18:21 01/31/21 Leilani Costello R.N. late entry - 18:30 01/31/21. Departure time: late entry - 18:01/31/2021. Condition at departure: improved and stable. Transferred to [facility]. Visit overview, summary of care (CCDA), Emtala [...] rce(s) Supporting Document(s) ID Date Data Source [id number] 01/31/2021 05:29:00 PM EDT [facility] 1 Clinical Report - Physicians/Mid Levels [facility] Emergency Department [address] [place] [address] Phone #: ext- [phone] 01/31/2021 17:27 Patient: [...] 3 weeks ago, followed by pulmonology at [facility], Dr. Parnell, seen yesterday, started on Levaquin po today for presumed PNA, respiratory Sx's x 1 week, sudden hemoptysis DRAMATIC READER). Additional history - No known contact with a sick individual. Similar symptoms previously. Patient has had similar symptoms occasionally. Worse from previously. ( much worse today). Recent medical care: The patient was seen recently at another facility in the office. ( yesterday, pulmonology at [facility]).REVIEW OF SYSTEMSNo headache, eye discomfort, [...] Cancer. 2 Clinical Report - Physicians/Mid Levels [facility] Emergency Department [address] [place] [address] Phone #: bar- [phone] 01/31/2021 17:27 Patient: CHANTALE SOLOMON Sex: F [...] distress. 3 Clinical Report - Physicians/Mid Levels [facility] Emergency Department [address] [place] [address] Phone #: ext- [phone] 01/31/2021 17:27 Patient: [...] # _[id number] 01/31/21.DW . KIT EXP DATE _06-18-01 01/31/21.DW . NORMAL RANGE IS NOT DETECTEDNEGATIVE [...] results 4 Clinical Report - Physicians/Mid Levels [facility] Emergency Department [address] [place] [address] Phone #: ext- [phone] 01/31/2021 17:27 Patient: CHANTALE SOLOMON Sex: F [...] 5.0) 5 Clinical Report - Physicians/Mid Levels [facility] Emergency Department [address] [place] [address] Phone #: ext- [phone] 01/31/2021 17:27 Patient: [...] mL/min Normal Lipase: (SARAH: 01/31/2021 17:38) ( [facility] 01/31/2021 18:19) Final results Test Result Flag [...] Thrombosis, Pulmonary Embolus, Tissue heart valves, Acute MN Atrial Fibrillation, Valvular heart disease and recurrent Systemic Embolism. -International Normalized Ratio (INR): 2.5 - 3.5 for Mechanical Prosthetic valve. Troponin-T: (SARAH: 01/31/2021 17:38) ( [facility] 01/31/2021 18:25) Final results Test Result Flag Units (Reference) TROPONIN T 0.01 NG/ML (0.00 - 0.10) TROPONIN T0.1 ng/ml Recommended as the clinical threshold value forTroponin T. BNP: (SARAH: 01/31/2021 17:38) ( [facility] 01/31/2021 18:25) Final results Test Result Flag Units (Reference) BNP 1304 H PG/ML (0 - 125).PROGRESS AND PROCEDURESCourse of Care: 18:02 01/31/21. case discussed w Dr. Dominguez, state pilot at [facility], who advised tosend to ER STAT; waiting for ER to call back; pt calmer, doing better; coughed about 250 ml of blood so far 18:10 01/31/21. Dr. Torres, ER MD, called back, case discussed, she was aware of pt per Dr. Dominguez, recommends also TXA nebulization, will do 6 Clinical Report - Physicians/Mid Levels [facility] Emergency Department [address] [place] [address] Phone #: ext- [phone] 01/31/2021 17:27 Patient: CHANTALE SOLOMON Sex: F : 1965 Age: 55y 18:12 01/31/21. VBG and lactic in and reviewed, rest pending 18:28 01/31/21. CMP, BNP, troponin results in; TXA nebulizer going (500 mg in 10 ml), EMT's here for transport to [facility], pt so much better, no [...] explained to patient and spouse. Transferred to [facility]. Summary of care (CCDA) provided to transport team, patient and transfer facility via paper. Condition: stable and critical.CLINICAL IMPRESSION Massive hemoptysis. Metastatic, advanced left upper lobe and lower lobe lung cancer. Acute exacerbation of COPD (emphysematous).(Electronically signed by Maria T Galloway M.D. 01/31/2021 19:04) Name Value Range Interpretation Code Description Data Maura rce(s) Supporting Document(s) ID Date Data Source [id number] 02/06/2021 06:45:00 AM EDT [facility] Name Value Range Interpretation Code Description Data Maura rce(s) Supporting Document(s) Bacteria identified in Blood by Culture [facility] NO GROWTH AFTER 5 DAYS ID Date Data Source [id number] 02/11/2021 06:15:00 AM EDT [facility] Name Value Range Interpretation Code Description Data Maura rce(s) Supporting Document(s) CULTURE BLOOD [facility] spital _CULTURE BLOOD_ [place] [address] CLIA# [id number] SEE SCANNED REPORT{ PRELIM ID Date Data Source [id number] 01/31/2021 05:55:00 PM EDT [facility] Name Value Range Interpretation Code Description Data Maura rce(s) Supporting Document(s) COVID19 Case rprt NOT DETECTED [facility] This lab was ordered by [facility] and reported by [facility]. ID Date Data Source [id number] 01/31/2021 06:42:00 PM EDT [facility] NOT DETECTEDNOT DETECTED{ PROC EDURAL CONTROL VALID KIT LOT # _[id number] 01/31/21.DW . KIT EXP DATE _10-20-99 01/31/21.DW . NORMAL RANGE IS NOT DETECTEDNEGATIVE [...] rce(s) Supporting Document(s) ID Date Data Source [id number] 02/11/2021 06:14:00 AM EDT [facility] Name Value Range Interpretation Code Description Data Maura rce(s) Supporting Document(s) CULTURE BLOOD [facility] _CULTURE BLOOD_ TEST PERFORM ED AT [place] [id number] [place] [address] IA# [id number] SEE SCANNED REPORT{ PRELIM ID Date Data Source [id number] 01/31/2021 06:41:00 PM EDT [facility] Name Value Range Interpretation Code Description Data Maura rce(s) Supporting Document(s) CBC W/AUTOMATED DIFF [facility] COMPLETE BLOOD COUNT Leukocytes [#/volume] in Blood by Automated count 23.8 10^3/uL 4.2 - 11.0 H [facility] Erythrocytes [#/volume] in Blood by Automated count 2.92 10^6/uL 4. 20 - 5.40 L [facility] Hemoglobin [Mass/volume] in Blood 10.7 g/dL 12.0 - 16.0 L [facility] Hematocrit [Volume Fraction] of Blood by Automated count 31.8 % 3 7.0 - 47.0 L [facility] Erythrocyte mean corpuscular volume [Entitic volume] b y Automated count 108.9 fL 81.0 - 101 H [facility] Erythrocyte mean corpuscular hemoglobin [Entitic mass] by Automated count 36.6 pg 27.0 - 34.0 H [facility] Erythrocyte mean corpuscular hemoglobin concentration [Mass/volume] by Automated count 33.6 g/dL 31.0 - 36.0 [facility] Erythrocyte distribution width [Ratio] by Automated count 20.1 % 11.5 - 14.5 H [facility] Platelets [#/volume] in Blood by Automated count 447 10^3/uL 150 - 45 0 [facility] Platelet mean volume [Entitic volume] in Blood by Automated count 9.0 fL 7.4 - 10.4 [facility] Neutrophils/100 leukocytes in Blood by Automated count 74.8 % 37. 0 - 80.0 [facility] Lymphocytes/100 leukocytes in Blood by Manual count 10.9 % 25.0 - 40.0 L [facility] Monocytes/100 leukocytes in Blood by Automated count 7.3 % 3.0 - 8.0 [facility] Eosinophils/100 leukocytes in Blood by Automated count 0.0 % 0.0 - 7.0 [facility] Basophils/100 leukocytes in Blood by Automated count 0.8 % 0.0 - 2.5 [facility] %IG 6.2 % 0.0 - 0.0 H [facility] al %NRBC 0.6 % 0.0 - 0.0 H [facility] al Neutrophils [#/volume] in Blood by Automated count 17.83 10^3/uL 2. 00 - 6.90 H [facility] Lymphocytes [#/volume] in Blood by Automated count 2.59 10^3/uL 0.60 - 3.40 [facility] Monocytes [#/volume] in Blood by Automated count 1.73 10^3/uL 0.00 - 0.90 H [facility] Eosinophils [#/volume] in Blood by Automated count 0.01 10^3/uL 0.00 - 0.70 [facility] Basophils [#/volume] in Blood by Automated count 0.18 10^3/uL 0.00 - 0.20 [facility] #IG 1.48 10^3/uL 0.00 - 0.10 H [facility] #NRBC 0.15 10^3/uL 0.00 - 0.00 H [facility] MANUAL DIFF SEE BELOW [facility] ital Segmented neutrophils/100 leukocytes in Blood by Manual count 75 % 37 - 80 [facility] %LYMPH 10 % 25 - 40 L [facility] al %MONO 10 % 3 - 8 H [facility] al Metamyelocytes/100 leukocytes in Blood by Manual count 2 % [facility] Myelocytes/100 leukocytes in Blood by Manual count 3 % [facility] RBC MORPH SEE BELOW [facility] al Anisocytosis [Presence] in Blood by Light microscopy 1+ SHAUNA L: NONE SEEN A [facility] Macrocytes [Presence] in Blood by Light microscopy 1+ NORMAL: NONE SEEN A [facility] Polychromasia [Presence] in Blood by Light microscopy 1+ NORM AL: NONE SEEN A [facility] { SICKLE CELL (NORMAL: NONE SEEN ) Platelet adequacy [Presence] in Blood by Light microscopy NORMAL NORMAL: NORMAL [facility] COMMENT: ID Date Data Source [id number] 01/31/2021 06:25:00 PM EDT [facility] Name Value Range Interpretation Code Description Data Maura rce(s) Supporting Document(s) COMPREHENSIVE METABOLIC PANEL [facility] COMPREHENSIVE METABOLIC PANEL Sodium [Moles/volume] in Serum or Plasma 136 mEq/L 134 - 153 [facility] Potassium [Moles/volume] in Serum or Plasma 4.2 mEq/L 3.6 - 5.0 [facility] Chloride [Moles/volume] in Serum or Plasma 89 mEq/L 98 - 107 L [facility] Carbon dioxide, total [Moles/volume] in Serum or Plasma 27 MEQ/L 22 - 30 [facility] Glucose [Mass/volume] in Serum or Plasma 173 MG/DL 70 - 99 H [facility] BUN 22 MG/DL 7 - 21 [facility] [place] [facility] Creat[facility] [Mass/volume] in Serum or Plasma 1.3 MG/DL 0.7 - 1.5 [facility] BUN/CREAT 17 8 - 27 [facility] Protein [Mass/volume] in Serum or Plasma 6.9 G/DL 6.3 - 8.2 [facility] Albumin [Mass/volume] in Serum or Plasma 4.2 G/DL 3.9 - 5.0 [facility] Globulin [Mass/volume] in Serum by calculation 2.7 GM/DL 2.4 - 3.2 [facility] A/G RATIO 1.6 0.8 - 2.0 [facility] Calcium [Mass/volume] in Serum or Plasma 9.3 MG/DL 8.4 - 10.2 [facility] Bilirubin.total [Mass/volume] in Serum or Plasma <0.7 MG/DL 0.2 - 1.3 [facility] Alkaline phosphatase [Enzymatic activity/volume] in Serum or Plasma 82 U/L 38 - 126 [facility] Aspartate aminotransferase [Enzymatic activity/volume] in Serum or Plasma 27 U/L 5 - 40 [facility] Alanine aminotransferase [Enzymatic activity/volume] in Seru m or Plasma 51 U/L 7 - 56 [facility] Anion gap 3 in Serum or Plasma 20.0 mmol/L 8.0 - 16.0 [facility] AGE 55 yrs [facility] NON-AA GFR 45 mL/min [facility] AFR AMER GFR 55 mL/min [facility] Male GFR In [...] >32 mL/min Normal ID Date Data Source [id number] 01/31/2021 06:25:00 PM EDT [facility] Name Value Range Interpretation Code Description Data Maura rce(s) Supporting Document(s) BNP 1304 PG/ML 0 - 125 [facility] ID Date Data Source [id number] 01/31/2021 06:25:00 PM EDT [facility] Name Value Range Interpretation Code Description Data Maura rce(s) Supporting Document(s) TROPONIN T 0.01 NG/ML 0.00 - 0.10 [facility] TROPONIN T0.1 ng/ml Recommended as the c linical threshold value forTroponin T. ID Date Data Source [id number] 01/31/2021 06:25:00 PM EDT [facility] Name Value Range Interpretation Code Description Data Maura rce(s) Supporting Document(s) Prothrombin time (PT) 21.0 SECONDS 11.0 - 15.5 [facility] INR in Platelet poor plasma by Coagulation assay 1.72 0.93 - 1. 23 [facility] aPTT in Blood by Coagulation assay 29.7 SECONDS 24.8 - 36.7 [facility] \\BLDo\\INR INTERPRETATION\\BLDx\\ Therapeutic range for Coumadin and related oral anticoagulants. - International Normalized Ratio (INR): 2.0 - 3.0 for Venous Thrombosis, Pulmonary Embolus, Tissue heart valves, Acute MN Atrial Fibrillation, Valvular heart disease and recurrent Systemic Embolism. - International Normalized Ratio (INR): 2.5 - 3.5 for Mechanical Prosthetic valve. ID Date Data Source [id number] 01/31/2021 06:19:00 PM EDT [facility] Name Value Range Interpretation Code Description Data Maura rce(s) Supporting Document(s) Lipase [Enzymatic activity/volume] in Serum or Plasma 29 U/L 13 - 60 [facility] ID Date Data Source [id number] 01/31/2021 06:00:00 PM T [facility] Name Value Range Interpretation Code Description Data Maura rce(s) Supporting Document(s) pH of Serum or Plasma 7.37 7.32 - 7.43 [facility] pCO2 V 55.4 mm/HG 38.0 - 51.0 [facility] pO2 V 50.5 mm/HG 30.0 - 55.0 [facility] Bicarbonate [Moles/volume] in Venous blood 31.2 meq/L 22.0 - 29.0 [facility] TCO2 V 32.9 meq/L 22.0 - 29.0 [facility] Base excess in Blood by calculation 4.8 -2.0 - 2.0 [facility] O2 SAT V 84.7 % 40.0 - 85.0 [facility] ID Date Data Source [id number] 01/31/2021 05:59:00 PM EDT [facility] Name Value Range Interpretation Code Description Data Maura rce(s) Supporting Document(s) Lactate [Moles/volume] in Serum or Plasma 5.9 MMOL/L 0.2 - 2.2 [facility] CALL/ READ BACK DAMON IN ED [facility] BY: RASHAD [facility] DATE/TIME [id number]/1800 [facility] ID Date Data Source [id number] 01/30/2021 01:11:00 PM EDT [facility] ([facility], ) Name Value Range Interpretation Code Description Data Maura rce(s) Supporting Document(s) Gram Stain Laboratory test result Normal (applies to non-n umeric results) [facility] ([facility], ) QUALITY: GOOD FEW EPITHELIAL CELLS MANY WBCS FEW GRAM POSITIVE COCCI IN PAIRS AND CLUSTERS FEW GRAM NEGATIVE COCCOBACILLUS Sputum Culture Laboratory test result Normal (applies to non-numeric results) [facility] ([facility], ) <content>FULL REPORT IN LAB NOTES (eCW [...] 2 S</content>
<content></content> ID Date Data Source [id number] 01/30/2021 01:11:00 PM EDT [facility] ([facility]) Name Value Range Interpretation Code Description Data Maura rce(s) Supporting Document(s) Bacteria identified in Sputum by Aerobe culture Laboratory test resul t [facility] ([facility]) ID Date Data Source [id number] 01/30/2021 12:55:00 PM EDT [facility] ([facility]) Name Value Range Interpretation Code Description Data Maura rce(s) Supporting Document(s) FVC-Pre 0.89 L [facility] ([facility]) FVC-Pred 2.96 L [facility] ([facility]) PDFReport Laboratory test result [facility] ([facility]) Fev1-Pred 2.32 L [facility] ([facility]) FVC-%Pred-Pre 30 L [facility] ([facility]) FVC-LLN 2.35 L [facility] ([facility]) Fev1-%Pred-Pre 31 L [facility] ([facility]) Fev1-LLN 1.80 L [facility] ([facility]) Fev1-Pre 0.73 L [facility] ([facility], ) Fev6-LLN 2.27 L [facility] ([facility], ) Fev6-%Pred-Pre 31 L [facility] ([facility], ) Fev6-Pred 2.87 L [facility] ([facility], ) Fev6-Pre 0.89 L [facility] ([facility], ) Wkz7gho-%Pred-Pre 103 % [facility] ([facility], ) Idb8uyx-Hmkl 79 % [facility] ([facility], ) Pgc4myl-Kmn 82 % [facility] ([facility]) Rce9dhk-Dpyo 97 % [facility] ([facility]) Tms8uga-Nmh 100 % [facility] ([facility]) Gsn0cxr-MVI 69 % [facility] ([facility]) FEFMax-Pre 2.11 L/E/sec [facility] ([facility]) FEFMax-Pred 5.94 L/E/sec [facility] ([facility]) Kxf5nwj-%Pred-Pre 103 % [facility] ([facility]) FEFMax-LLN 4.44 L/E/sec [facility] ([facility]) Rgk6604-Ctcv 2.34 L/E/sec [facility] ([facility]) FEFMax-%Pred-Pre 35 L/E/sec [facility] ([facility]) Tej9962-Whm 0.74 L/E/sec [facility] ([facility], ) Vmr2133-GGU 1.25 L/E/sec [facility] ([facility]) Ojf8955-%Pred-Pre 31 L/E/sec [facility] ([facility]) ExpTime-Pre 5.94 sec [facility] ([facility]) Nbr3fah8-Xww 82 % [facility] ([facility]) Qiv1aey7-%Pred-Pre 100 % [facility] ([facility]) Fgy0xuw2-Ufrf 82 % [facility] ([facility]) Fjg1owe5-EKG 73 % [facility] ([facility]) ID Date Data Source [id number] 01/17/2021 01:20:00 PM EDT [facility] ([facility]) Name Value Range Interpretation Code Description Data Maura rce(s) Supporting Document(s) Gram Stain Laboratory test result Normal (applies to non-n umeric results) [facility] ([facility]) QUALITY: GOOD MANY WBCS FEW EPITHELIAL CELLS MODERATE GRAM POSITIVE COCCI IN PAIRS, CHAINS AND CLUSTERS FEW YEAST LIKE ORGANISM WITH PSEUDOHYPHAE FEW GRAM NEGATIVE RODS Sputum Culture Laboratory test result Normal (applies to non-numeric results) [facility] ([facility]) FULL REPORT IN LAB NOTES ([facility] NORMAL JEROME PRESENT ORGANISM 1: YEAST LIKE ORGANISM QUANTITY OF GROWTH FEW ORGANISM 1: YEAST LIKE ORGANISM ID Date Data Source [id number] 01/17/2021 01:20:00 PM EDT [facility] ([facility]) Name Value Range Interpretation Code Description Data Maura rce(s) Supporting Document(s) Bacteria identified in Sputum by Aerobe culture Laboratory test result Normal (applies to non-numeric results) [facility] ([facility]) QUALITY: GOOD MANY WBCS FEW EPITHELIAL CELLS MODERATE GRAM POSITIVE COCCI IN PAIRS, CHAINS AND CLUSTERS FEW YEAST LIKE ORGANISM WITH PSEUDOHYPHAE FEW GRAM NEGATIVE RODS ID Date Data Source [id number] 12/22/2020 10:24:00 [place] [address] PROGRESS NOTENAME: JUANITO Daniels ROOM#: [id number] OF : 1965 MR#: [id number] DATE: 12/20/20 OF SERVICE: 12/22/2020UBJECTIVE:This patient has [...] Osmel Alvarez MD, PC 12/27/20 09:34 1 [place] [address] PROGRESS NOTENAME: JUANITO AMAYADOREEN Daniels ROOM#: [id number] OF : 1965 MR#: [id number] DATE: 12/20/20 2 Name Value Range Interpretation Code Description Data Maura rce(s) Supporting Document(s) ID Date Data Source [id number] 12/21/2020 10:05:00 [place] [address] PROGRESS NOTENAME: JUANITO Daniels ROOM#: [id number] OF : 1965 MR#: [id number] DATE: [facility]/20/20 [id number] OF SERVICE: 12/21/2020UBJECTIVE:This patient has pneumonia left [...] rce(s) Supporting Document(s) ID Date Data Source [id number] 12/23/2020 12:19:00 [place] [address] HISTORY AND PHYSICALNAME: JUANITO Daniels ROOM#: [id number] OF : 1965 MR#: [id number] PHYS: Osmel Alvarez MD, [facility] [id number] DATE: 12/20/20CHIEF COMPLAINT: This is a 55-year-old [...] [facility] [place] Patient hasintermittent chills and fever. She has [...] had pulmonary emboli. She was admitted to [facility] on 08/05/20 for atrialfibrillation and carcinoma of [...] Mother is alive. She has COPD.ALLERGIES: [address] [address] HISTORY AND PHYSICALNAME: JUANITO Daniels ROOM#: [id number] OF : 1965 MR#: [id number] PHYS: Osmel Alvarez MD, PC DATE: 12/20/20PENICILLIN and SEAFOOD.PHYSICAL EXAMINATION:GENERAL: Moderately-built.VITAL SIGNS: [...] Osmel Alvarez MD, PC 12/27/20 09:34 2 [place] [address] HISTORY AND PHYSICALNAME: JUANITO Daniels ROOM#: [id number] OF : 1965 MR#: [id number] PHYS: Osmel Alvarez MD, PC DATE: 12/20/20 3 Name Value Range Interpretation Code Description Data Maura rce(s) Supporting Document(s) ID Date Data Source [id number] 12/23/2020 12:37:00 [place] [address] DISCHARGE SUMMARYNAME: JUANITO Daniels ROOM#: [id number] OF : 1965 MR#: [id number] PHYS: Osmel Alvarez MD, PC DATE: 12/20/20 [...] so it wasdecided to transfer her to [facility]. I spoke with the hospitalist and the patient will betransferred there for further care and the active directory specialist will be consulted.FINAL DIAGNOSIS:1. Pneumonia left lung.2. Collapsed left lung.3. Possible mucus plugs causing collapse.4. Carcinoma of the left lung. The possibility of collapse of the left lung from carcinoma cannot be ruled out.5. History of pulmonary emboli. 1 [place] [address] DISCHARGE SUMMARYNAME: JUANITO Daniels ROOM#: [id number] OF : 1965 MR#: [id number] PHYS: Osmel Alvarez MD, DATE: 12/20/20 DISCHARGED: 12/23/20 6. History of hypertension. 7. History of COPD. 8. History of anemia. 9. History of thrombocytopenia.DD: Osmel Alvarez MD, 12/23/20 11:24DT: SONYA 12/23/20 12:19DS: Osmel Alvarez MD, PC 12/27/20 09:34 2 Name Value Range Interpretation Code Description Data Maura rce(s) Supporting Document(s) ID Date Data Source [id number] 12/25/2020 01:55:00 [place] [address] PHONE: [phone] FAX: [phone] Name .................. : JUANITO Daniels Acct Number.................. : [id number] ROOM. ................. : CCU4 MR Number ................... : [id number] Stay type ............. : I/P Discharge Date......... ... : 12/23/20 Admit Date ......... : 12/20/20 Admit Phys .................... : KIM VANESSA Date of ....... : 1965 Family Phys ................... : Syndiant Phone .................. : [phone] Age ................................ : 55 Film# .................. .:[id number] Sex ................................. : F Unsigned transcriptions are preliminary reports and do not represent a medical or legal document CHEST PORTABLE [id number] COMPLETE:12/23/20 09:09 [facility] 0890 (REASON FOR CHEST: PNEUMONIA PORTABLE CHEST X-RAY: [...] rce(s) Supporting Document(s) ID Date Data Source [id number] 12/20/2020 10:53:00 AM EST [facility] 1 OrderSheet [facility] Emergency Department [address] [place] [address] Phone #: ext- [phone] 12/20/2020 10:48 Patient: CHANTALE SOLOMON Sex: F : 1965 Age: 55yWEIGHT:80.2 kg (M) HEIGHT:60 inches (S) BMI:34.5ALLERGIES: Penicillins, SeafoodCHIEF COMPLAINT: dyspnea, CHF, wheezingDIAGNOSIS: PneumoniaLAB ORDERSOrder Description Priority Entered Acknowledged InitialedCBC w Diff STAT 11:12/20/2020 11:34 Chau Bower R.N.;BNP STAT 11:12/20/2020 11:34 Chau BowerNKellen LOPEZ;CMP STAT 11:12/20/2020 11:34 Chau BowreNKellen LOPEZ;D-Dimer STAT 11:12/20/2020 11:34 Chau Bower R.N.;Influenza Nasal A B STAT 11:12/20/2020 11:53 Chau Bower R.N.;Lactic Acid STAT 11:12/20/2020 11:34 Chau Bower R.N.;Troponin-T STAT 11:12/20/2020 11:34 Chau Bower R.N. PA;Urinalysis (Clean STAT 11:09 1Catch) Chau LOPEZ;COVID-19 CAH STAT 11:09 12/20/2020 11:53 Sathish,(Symptomatic as ChauCamargojose Perryica R.N.Defined by CDC) PA;(11/24/2020) (NotFirst Test) (NotHospitalized) (Not) (NotResident in 2 OrderSheet [facility] Emergency Department [address] [place] [address] Phone #: ext- [phone] 12/20/2020 10:48 Patient: CHANTALE SOLOMON Sex: F : 1965 Age: 55yCongregate CareSetting) (NotEmployed inHealthcare Setting)Blood Culture STAT 13:31 12/20/2020 13:50 Sathish,q10m X2 (Sched Chau Perryica R.N.13:31 12/20/2020) PA;Blood Culture STAT 13:31 12/20/2020 13:50 Sathish,q10m X2 (Sched Chau Davidreinajose Chuassica R.N.13:41 12/20/2020) PA;CORONAVIRUS STAT 13:31 12/20/2020 [...] mL (3 PA;mL X2 Doses) 3 OrderSheet [facility] Emergency Department [address] [place] [address] Phone #: ext- [phone] 12/20/2020 10:48 Patient: [...] Acknowledged InitialedEKG 11:09 12/20/2020 11:53 Chau Bower R.N.;Medical Writer 11:09 12/20/2020 11:34 Sathish(continuous) Chau LOPEZ;Oxygen titrate to 11:12/20/2020 11:34 Sathish,92% Chau LOPEZ;Pulse Oximetry 11:12/20/2020 11:34 Sathish,Justa LOPEZ;Filtered Nebulizer 11:12/20/2020 11:34 Chau Bower R.N.;[Electronically signed by Ruth Bower R.N. (15:11 12/20/2020)][Electronically signed by Chau Amaya (21:07 12/20/2020)][Electronically locked by Ruth Bower R.N. (15:11 12/20/2020)] Name Value Range Interpretation Code Description Data Maura rce(s) Supporting Document(s) ID Date Data Source [id number] 12/20/2020 10:53:00 AM EST [facility] 1 Medication Reconciliation Report [facility] Emergency Department [address] [place] [address] Phone #: ext- [phone] 12/20/2020 10:48 Patient: [...] administered: 11:30 12/20/2020 2 Medication Reconciliation Report [facility] Emergency Department [address] [place] [address] Phone #: ext- [phone] 12/20/2020 10:48 Patient: [...] rce(s) Supporting Document(s) ID Date Data Source [id number] 12/20/2020 10:53:00 AM EST [facility] 1 Medication Administration Record [facility] Emergency Department [address] [place] [address] Phone #: ext- [phone] 12/20/2020 10:48 Patient: [...] TX Doses (Filtered): 6 mL (3 mL [id number] Bower, R.N. Doses)----Stop11:45 12/20/2020Ruth Bower, R.N.Given DEXAMETHASONE [IVP] Dexamethasone IVP 10mg11:36 12/20/2020 Dose: 10 mg IVPRuth Bower, R.N. Site: #1 right ACStart ROCEPHIN (1GM/50ML) [IVPB] Rocephin (1gm/50mL) IVPB 871821:16 12/20/2020 (CEFTRIAXONE SODIUM) mg with Dextrose 50 [...] 250 mL (NOW x1)---- Site: #1 right ELRths20:59 12/20/2020Ruth Bower R.N.Given TYLENOL [PO] (APAP) Tylenol PO 1000 mg1 3:58 12/20/2020 Dose: 1000 mg Tablets Ruth Dejesus R.N. Name Value Range Interpretation Code Description Data Maura rce(s) Supporting Document(s) ID Date Data Source [id number] 12/20/2020 10:53:00 AM [facility] 1 General Instructions [facility] Emergency Department [address] [place] [address] Phone #: ext- [phone] 12/20/2020 10:48 Patient: CHANTALE SOLOMON Sex: F : 1965 Age: 55yLobar pneumonia.(Electronically signed by JOHN Yao 12/20/2020 21:07) Name Value Range Interpretation Code Description Data Maura rce(s) Supporting Document(s) ID Date Data Source [id number] 12/20/2020 10:53:00 AM [facility] 1 Clinical Report - Nurses [facility] Emergency Department [address] [place] [address] Phone #: ext- [phone] 12/20/2020 10:48 Patient: CHANTALE SOLOMON Sex: F [...] chemo last week, sees Dr. Steel via [facility]. Pt wears chronic 2L O2). ( Ptfinished d/c antbx, believed to be levaquin).Treatment DRAMATIC READER:Took breathing treatment. Symptoms did not improve after [...] Asher R.N.Allergies 2 Clinical Report - Nurses [facility] Emergency Department [address] [place] [address] Phone #: ext- [phone] 12/20/2020 10:48 Patient: CHANTALE SOLOMON Sex: F [...] Asher R.N. 3 Clinical Report - Nurses [facility] Emergency Department [address] [place] [address] Phone #: ext- [phone] 12/20/2020 10:48 Patient: [...] 12/20/20 Ruth Bower R.N. Patient transported to [place] by wheelchair with mask and debug technician. --12:04 12/20/20 Sathish, Ruth, R.N. 4 Clinical Report - Nurses [facility] Emergency Department [address] [place] [address] Phone #: ext- [phone] 12/20/2020 10:48 Patient: [...] Bower R.N. 5 Clinical Report - Nurses [facility] Emergency Department [address] [place] [address] Phone #: ext- [phone] 12/20/2020 10:48 Patient: CHANTALE SOLOMON Sex: F [...] rce(s) Supporting Document(s) ID Date Data Source [id number] 12/20/2020 10:53:00 AM [facility] 1 Clinical Report - Physicians/Mid Levels [facility] Emergency Department [address] [place] [address] Phone #: ext- [phone] 12/20/2020 10:48 Patient: [...] chemo last week, sees Dr. Steel via [facility]. Pt wears chronic 2L O2). [...] daily. 2 Clinical Report - Physicians/Mid Levels [facility] Emergency Department [address] [place] [address] Phone #: ext- [phone] 12/20/2020 10:48 Patient: CHANTALE SOLOMON Sex: F [...] liters/minute. Temp: 100 F. Pain level now: 03/12. Have been reviewed as normal. Oxygen saturationnormal.Appearance: [...] 80.0) 3 Clinical Report - Physicians/Mid Levels [facility] Emergency Department [address] [place] [address] Phone #: ext- [phone] 12/20/2020 10:48 Patient: [...] Male GFR Interprentation 20-49 yrs >60 mL/min Odqeqz30-95 yrs >56 mL/min Normal 60-69 yrs >49 mL/min Normal 70-79yrs>42 mL/min Normal 80 and above >35 mL/min Normal Female GFRInterpretation 20-39 yrs >60 mL/min Normal 40-49 yrs >58 mL/minNormal 50- 59 yrs >51 mL/min Normal 60-69 yrs >45 mL/min Qzmpzs75-16 yrs >39 mL/min Normal 80 and above >32 mL/min NormalD-Dimer: (SARAH: 12/20/2020 11:30) ( LagRcvd 12/20/2020 13:03) Final results Test Result Flag Units (Reference) D-DIMER QUANT 2.90 H ug/mL (0.27 - 0.50)Influenza Nasal A B: (SARAH: 12/20/2020 11:52) ( MsgRcvd 12/20/2020 12:39) Final results 4 Clinical Report - Physicians/Mid Levels [facility] Emergency Department [address] [place] [address] Phone #: ext- [phone] 12/20/2020 10:48 Patient: [...] managementdecisions. Lactic Acid: (SARAH: 12/20/2020 11:30) ( [facility] 12/20/2020 12:18) Final results Test Result Flag [...] IMPRESSION 5 Clinical Report - Physicians/Mid Levels [facility] Emergency Department [address] [place] [address] Phone #: ext- [phone] 12/20/2020 10:48 Patient: CHANTALE SOLOMON Sex: F : 1965 Age: 55y Lobar pneumonia.(Electronically signed by JOHN Yao 12/20/2020 21:07) Name Value Range Interpretation Code Description Data Maura rce(s) Supporting Document(s) ID Date Data Source [id number] 12/20/2020 10:53:00 AM EST [facility] Addenda for CHANTALE SOLOMON VisitID: [id number] Date: 10:20Pt covid test negative, pt was admitted to [facility] and was negative per rapid; Pt was d/c home and calledher at 1018, left voicemail.(Electronically signed by Meghann Asher R.N. - 12/25/2020 10:20)12/25/2020 13:01Pt called back at 1209 and made aware of PCR results, no further intervention required.(Electronically signed by Mehgann Asher R.N. - 12/25/2020 13:01) Name Value Range Interpretation Code Description Data Maura rce(s) Supporting Document(s) ID Date Data Source [id number] 12/23/2020 07:11:00 AM EST [facility] (Osmel Alvarez [...] (Osmel Alvarez MD) ID Date Data Source [id number] 12/23/2020 07:11:00 AM EST [facility] (Osmel Alvarez [...] (Osmel Alvarez MD) ID Date Data Source [id number] 12/23/2020 07:11:00 AM EST [facility] (Osmel Alvarez MD) Name Value Range Interpretation Code Description Data Maura rce(s) Supporting Document(s) Magnesium [Mass/volume] in Serum or Plasma 1.7 mg/dL 1.7-2.2 [facility] (Osmel Alvarez MD) ID Date Data Source [id number] 12/23/2020 08:54:00 AM EST [facility] Name Value Range Interpretation Code Description Data Maura rce(s) Supporting Document(s) CBC W/AUTOMATED DIFF [facility] COMPLETE BLOOD COUNT Leukocytes [#/volume] in Blood by Automated count 4.1 10^3/uL 4.2 - 1 1.0 L [facility] Erythrocytes [#/volume] in Blood by Automated count 2.75 10^6/uL 4. 20 - 5.40 L [facility] Hemoglobin [Mass/volume] in Blood 9.4 g/dL 12.0 - 16.0 L [facility] Hematocrit [Volume Fraction] of Blood by Automated count 27.8 % 3 7.0 - 47.0 L [facility] Erythrocyte mean corpuscular volume [Entitic volume] b y Automated count 101.1 fL 81.0 - 101 H [facility] Erythrocyte mean corpuscular hemoglobin [Entitic mass] by Automated count 34.2 pg 27.0 - 34.0 H [facility] Erythrocyte mean corpuscular hemoglobin concentration [Mass/volume] by Automated count 33.8 g/dL 31.0 - 36.0 [facility] Erythrocyte distribution width [Ratio] by Automated count 14.2 % 11.5 - 14.5 [facility] Platelets [#/volume] in Blood by Automated count 219 10^3/uL 150 - 45 0 [facility] Platelet mean volume [Entitic volume] in Blood by Automated count 9.3 fL 7.4 - 10.4 [facility] Neutrophils/100 leukocytes in Blood by Automated count 62.4 % 37. 0 - 80.0 [facility] Lymphocytes/100 leukocytes in Blood by Manual count 11.3 % 25.0 - 40.0 L [facility] Monocytes/100 leukocytes in Blood by Automated count 17.2 % 3.0 - 8.0 H [facility] Eosinophils/100 leukocytes in Blood by Automated count 0.0 % 0.0 - 7.0 [facility] 0.5 %IG 8.6 % 0.0 - 0.0 [facility] %NRBC 0.5 % 0.0 - 0.0 H [facility] al Neutrophils [#/volume] in Blood by Automated count 2.53 10^3/uL 2.00 - 6.90 [facility] Lymphocytes [#/volume] in Blood by Automated count 0.46 10^3/uL 0.60 - 3.40 L [facility] Monocytes [#/volume] in Blood by Automated count 0.70 10^3/uL 0.00 - 0.90 [facility] Eosinophils [#/volume] in Blood by Automated count 0.00 10^3/uL 0.00 - 0.70 [facility] Basophils [#/volume] in Blood by Automated count 0.02 10^3/uL 0.00 - 0.20 [facility] #IG 0.35 10^3/uL 0.00 - 0.10 [facility] [facility] #NRBC 0.02 10^3/uL 0.00 - 0.00 [facility] ospital MANUAL DIFF SEE BELOW [facility] ital Segmented neutrophils/100 leukocytes in Blood by Manual count 73 % 37 - 80 [facility] BAND 0 % 0 - 5 [facility] al %LYMPH 16 % 25 - 40 L [facility] al %MONO 11 % 3 - 8 [facility] %EOS 0 % 0 - 7 [facility] 0 RBC MORPH NOT INDICATED [facility] Ho spital ID Date Data Source [id number] 12/23/2020 08:49:00 AM EST [facility] Name Value Range Interpretation Code Description Data Maura rce(s) Supporting Document(s) COMPREHENSIVE METABOLIC PANEL [facility] COMPREHENSIVE METABOLIC PANEL Sodium [Moles/volume] in Serum or Plasma 136 mEq/L 134 - 153 [facility] Potassium [Moles/volume] in Serum or Plasma 4.8 mEq/L 3.6 - 5.0 [facility] Chloride [Moles/volume] in Serum or Plasma 98 mEq/L 98 - 107 [facility] Carbon dioxide, total [Moles/volume] in Serum or Plasma 29 MEQ/L 22 - 30 [facility] Glucose [Mass/volume] in Serum or Plasma 147 MG/DL 70 - 99 H [facility] BUN 21 MG/DL 7 - 21 [facility] Creatinine [Mass/volume] in Serum or Plasma 0.8 MG/DL 0.7 - 1.5 [facility] BUN/CREAT 26 8 - 27 [facility] Protein [Mass/volume] in Serum or Plasma 6.2 G/DL 6.3 - 8.2 L [facility] Albumin [Mass/volume] in Serum or Plasma 3.4 G/DL 3.9 - 5.0 L [facility] Globulin [Mass/volume] in Serum by calculation 2.8 GM/DL 2.4 - 3.2 [facility] A/G RATIO 1.2 0.8 - 2.0 [facility] Calcium [Mass/volume] in Serum or Plasma 8.3 MG/DL 8.4 - 10.2 L [facility] Bilirubin.total [Mass/volume] in Serum or Plasma <0.7 MG/DL 0.2 - 1.3 [facility] Alkaline phosphatase [Enzymatic activity/volume] in Serum or Plasma 102 U/L 38 - 126 [facility] Aspartate aminotransferase [Enzymatic activity/volume] in Serum or Plasma 47 U/L 5 - 40 H [facility] Alanine aminotransferase [Enzymatic activity/volume] in Seru m or Plasma 64 U/L 7 - 56 H [facility] Anion gap 3 in Serum or Plasma 9.0 mmol/L 8.0 - 16.0 [facility] AGE 55 yrs [facility] al NON-AA GFR >60 mL/min [facility] ital AFR AMER GFR >60 mL/min [facility] Ho spital Male GFR In [...] >32 mL/min Normal ID Date Data Source [id number] 12/23/2020 08:34:00 AM EST [facility] Name Value Range Interpretation Code Description Data Maura rce(s) Supporting Document(s) Magnesium [Mass/volume] in Serum or Plasma 1.7 MG/DL 1.7 - 2.2 [facility] ID Date Data Source [id number] 12/22/2020 02:04:00 PM EST [address] [place] [address] RESPIRATORY CARE REPORT ==== ---------NAME------- NUMBER SEX AGE ADMIT DISC. XRAY# F/C CYNDY Daniels [id number] F 55 12/20/20 110089 B1 I/P DATE OF : 1965 M/R# [id number] PH#: [phone] CCU4 LOCATION: EMERGENCY DEPT EKG [id number] COMPL ETE:12/21/20 08:36 M 21411 PHYSICIAN: KIM MENDEZ Name Value Range Interpretation Code Description Data Maura rce(s) Supporting Document(s) ID Date Data Source [id number] 12/22/2020 06:49:00 AM EST [facility] (Osmel Alvarez MD) Name Value Range Interpretation Code Description Data Maura rce(s) Supporting Document(s) Magnesium [Mass/volume] in Serum or Plasma 1.8 mg/dL 1.7-2.2 [facility] (Osmel Alvarez MD) ID Date Data Source [id number] 12/22/2020 06:49:00 AM EST [facility] (Osmel Alvarez [...] >32 mL/min Normal ID Date Data Source [id number] 12/22/2020 06:49:00 AM EST [facility] (sOmel Alvarez MD) Name Value Range Interpretation Code [...] finding (navigational concept) 0.0 % 0.0-2.5 [facility] (Omsel Alvarez MD) Laboratory test finding [...] (Osmel Alvarez MD) ID Date Data Source [id number] 12/22/2020 07:48:00 AM [facility] Name Value Range Interpretation Code Description Data Maura rce(s) Supporting Document(s) Magnesium [Mass/volume] in Serum or Plasma 1.8 MG/DL 1.7 - 2.2 [facility] ID Date Data Source [id number] 12/22/2020 07:48:00 AM [facility] Name Value Range Interpretation Code Description Data Maura rce(s) Supporting Document(s) COMPREHENSIVE METABOLIC PANEL [facility] COMPREHENSIVE METABOLIC PANEL Sodium [Moles/volume] in Serum or Plasma 133 mEq/L 134 - 153 L [facility] Potassium [Moles/volume] in Serum or Plasma 5.0 mEq/L 3.6 - 5.0 [facility] Chloride [Moles/volume] in Serum or Plasma 98 mEq/L 98 - 107 [facility] Carbon dioxide, total [Moles/volume] in Serum or Plasma 30 MEQ/L 22 - 30 [facility] Glucose [Mass/volume] in Serum or Plasma 147 MG/DL 70 - 99 H [facility] BUN 19 MG/DL 7 - 21 [facility] Creatinine [Mass/volume] in Serum or Plasma 0.8 MG/DL 0.7 - 1.5 [facility] BUN/CREAT 24 8 - 27 [facility] al Protein [Mass/volume] in Serum or Plasma 6.1 G/DL 6.3 - 8.2 L [facility] Albumin [Mass/volume] in Serum or Plasma 3.2 G/DL 3.9 - 5.0 L [facility] Globulin [Mass/volume] in Serum by calculation 2.9 GM/DL 2.4 - 3.2 [facility] A/G RATIO 1.1 0.8 - 2.0 [facility] al Calcium [Mass/volume] in Serum or Plasma 8.5 MG/DL 8.4 - 10.2 [facility] Bilirubin.total [Mass/volume] in Serum or Plasma <0.7 MG/DL 0.2 - 1.3 [facility] Alkaline phosphatase [Enzymatic activity/volume] in Serum or Plasma 106 U/L 38 - 126 [facility] Aspartate aminotransferase [Enzymatic activity/volume] in Serum or Plasma 44 U/L 5 - 40 H [facility] Alanine aminotransferase [Enzymatic activity/volume] in Seru m or Plasma 40 U/L 7 - 56 [facility] Anion gap 3 in Serum or Plasma 5.0 mmol/L 8.0 - 16.0 L [facility] AGE 55 yrs [facility] al NON-AA GFR >60 mL/min [facility] ital AFR AMER GFR >60 mL/min [facility] Ho spital Male GFR In [...] >32 mL/min Normal ID Date Data Source [id number] 12/22/2020 07:47:00 AM EST [facility] Name Value Range Interpretation Code Description Data Maura rce(s) Supporting Document(s) CBC W/AUTOMATED DIFF [facility] COMPLETE BLOOD COUNT Leukocytes [#/volume] in Blood by Automated count 3.9 10^3/uL 4.2 - 1 1.0 L [facility] Erythrocytes [#/volume] in Blood by Automated count 2.64 10^6/uL 4. 20 - 5.40 L [facility] Hemoglobin [Mass/volume] in Blood 9.0 g/dL 12.0 - 16.0 L [facility] Hematocrit [Volume Fraction] of Blood by Automated count 26.6 % 3 7.0 - 47.0 L [facility] Erythrocyte mean corpuscular volume [Entitic volume] b y Automated count 100.8 fL 81.0 - 101 [facility] Erythrocyte mean corpuscular hemoglobin [Entitic mass] by Automated count 34.1 pg 27.0 - 34.0 H [facility] Erythrocyte mean corpuscular hemoglobin concentration [Mass/volume] by Automated count 33.8 g/dL 31.0 - 36.0 [facility] Erythrocyte distribution width [Ratio] by Automated count 14.1 % 11.5 - 14.5 [facility] Platelets [#/volume] in Blood by Automated count 221 10^3/uL 150 - 45 0 [facility] Platelet mean volume [Entitic volume] in Blood by Automated count 8.9 fL 7.4 - 10.4 [facility] Neutrophils/100 leukocytes in Blood by Automated count 71.5 % 37. 0 - 80.0 [facility] Lymphocytes/100 leukocytes in Blood by Manual count 10.3 % 25.0 - 40.0 L [facility] Monocytes/100 leukocytes in Blood by Automated count 11.8 % 3.0 - 8.0 H [facility] Eosinophils/100 leukocytes in Blood by Automated count 0.0 % 0.0 - 7.0 [facility] Basophils/100 leukocytes in Blood by Automated count 0.0 % 0.0 - 2.5 [facility] %IG 6.4 % 0.0 - 0.0 [facility] %NRBC 0.0 % 0.0 - 0.0 [facility] al Neutrophils [#/volume] in Blood by Automated count 2.78 10^3/uL 2.00 - 6.90 [facility] Lymphocytes [#/volume] in Blood by Automated count 0.40 10^3/uL 0.60 - 3.40 L [facility] Monocytes [#/volume] in Blood by Automated count 0.46 10^3/uL 0.00 - 0.90 [facility] Eosinophils [#/volume] in Blood by Automated count 0.00 10^3/uL 0.00 - 0.70 [facility] Basophils [#/volume] in Blood by Automated count 0.00 10^3/uL 0.00 - 0.20 [facility] #IG 0.25 10^3/uL 0.00 - 0.10 H [facility] #NRBC 0.00 10^3/uL 0.00 - 0.00 [facility] ospital MANUAL DIFF SEE BELOW [facility]osp ital Segmented neutrophils/100 leukocytes in Blood by Manual count 86 % 37 - 80 H [facility] %LYMPH 8 % 25 - 40 L [facility] al %MONO 6 % 3 - 8 [facility] al Nucleated erythrocytes/100 erythrocytes in Blood by Manual count 1 % [facility] RBC MORPH NOT INDICATED [facility] Ho spital ID Date Data Source [id number] 12/21/2020 12:16:00 PM EST [facility] [address] [place] [address] RESPIRATORY CARE REPORT ==== ---------NAME------- NUMBER SEX AGE ADMIT DISC. XRAY# F/C CYNDY Daniels [id number] F 55 12/20/20 [id number] B1 I/P DATE OF : 1965 M/R# [id number] #: [id number] CCU4 LOCATION: EMERGENCY DEPT EKG [id number] COMPL ETE:12/20/20 14:53 [facility] [address] PHYSICIAN: KIM VANESSA SWATSWORTH Name Value Range Interpretation Code Description Data Maura e(s) Supporting Document(s) ID Date Data Source [id number] 12/21/2020 09:42:00 AM EST [facility] [address] [place] [address] PHONE: [phone] FAX: [phone] Name .................. : JUANITO Daniels Acct Number.................. : [id number] ROOM. ................. : CCU4 MR Number ................... : [id number] Stay type ............. : I/P Discharge Date......... ... : Admit Date ......... : 12/20/20 Admit Phys .................... : KIM VANESSA Date of ....... : 1965 Family Phys ................... : SEQUEIRA Phone .................. : [phone] Age ................................ : 55 Film# .................. .:[id number] Sex ................................. : F Unsigned transcriptions are preliminary reports and do not represent a medical or legal document CT THORAX W/O CONTRAST [id number] COMPLETE:12/20/20 19:15 KATINA 4511 Reason(s): CHF CT [...] imperative reconstructive techniques. Page 1 of 2 [place] [address] PHONE: [phone] FAX: [phone] Name .................. : JUANITO Daniels Acct Number.................. : [id number] ROOM. ................. : CCU4 MR Number ................... : [id number] Stay type ............. : I/P Discharge Date......... ... : Admit Date ......... : 12/20/20 Admit Phys .................... : KIM MENDEZ Date of ....... : 1965 Family Phys ................... : SEQUEIRA Phone .................. : [phone] Age ................................ : 55 Film# .................. .:[id number] Sex ................................. : F Unsigned transcriptions are preliminary reports and do not represent a medical or legal document CT THORAX W/O CONTRAST [id number] COMPLETE:12/20/20 19:15 KATINA 4511 Reason(s): CHF CT dose: 550 mGycm Electronically Reviewed and Signed By Elier Rodríguez MD , 12/21/20 09:42, AML Transcribe Initials: REYES , Transcribe Date: 12/21/20 01:31, Dictation Date: Copy for: 002 [facility] Copy for: 710 MED REC Page 2 of 2 Name Value Range Interpretation Code Description Data Maura rce(s) Supporting Document(s) ID Date Data Source [id number] 12/21/2020 05:45:00 AM EST [facility] (Osmel Alvarez MD) Name Value Range Interpretation Code Description Data Maura rce(s) Supporting Document(s) Magnesium [Mass/volume] in Serum or Plasma 2.1 mg/dL 1.7-2.2 [facility] (Osmel Alvarez MD) ID Date Data Source [id number] 12/21/2020 05:45:00 AM EST [facility] (Osmel Alvarez [...] % 3 7.0-80.0 Above high normal [facility] (Osmle Alvaerz MD) Laboratory test finding (navigational concept) 8.8 [...] (Osmel Alvarez MD) ID Date Data Source [id number] 12/21/2020 05:45:00 AM EST [facility] (Osmel Alvarez MD) Name Value Range Interpretation Code Description Data Maura rce(s) Supporting Document(s) Cobalamin (Vitamin B12) [Mass/volume] in Serum or Plasma 857 pg/mL 2 32-1245 [facility] (Osmel Alvarez MD) Iron [Mass/volume] in Serum or Plasma 50 ug/dL 42-135 [facility] (Osmel Alvarez MD) ID Date Data Source [id number] 12/21/2020 05:45:00 AM EST [facility] (Osmel Alvarez [...] >32 mL/min Normal ID Date Data Source [id number] 12/21/2020 10:24:00 AM [facility] Name Value Range Interpretation Code Description Data Maura rce(s) Supporting Document(s) Cobalamin (Vitamin B12) [Mass/volume] in Serum or Plasma 857 PG/ML 232 - 1245 [facility] ID Date Data Source [id number] 12/21/2020 10:12:00 AM [facility] Name Value Range Interpretation Code Description Data Maura rce(s) Supporting Document(s) Iron [Mass/volume] in Serum or Plasma 50 UG/DL 42 - 135 [facility] ID Date Data Source [id number] 12/21/2020 07:03:00 AM [facility] Name Value Range Interpretation Code Description Data Maura rce(s) Supporting Document(s) CBC W/AUTOMATED DIFF [facility] COMPLETE BLOOD COUNT Leukocytes [#/volume] in Blood by Automated count 4.2 10^3/uL 4.2 - 1 1.0 [facility] Erythrocytes [#/volume] in Blood by Automated count 2.73 10^6/uL 4. 20 - 5.40 L [facility] Hemoglobin [Mass/volume] in Blood 9.4 g/dL 12.0 - 16.0 L [facility] Hematocrit [Volume Fraction] of Blood by Automated count 27.6 % 3 7.0 - 47.0 L [facility] Erythrocyte mean corpuscular volume [Entitic volume] b y Automated count 101.1 fL 81.0 - 101 H [facility] Erythrocyte mean corpuscular hemoglobin [Entitic mass] by Automated count 34.4 pg 27.0 - 34.0 H [facility] Erythrocyte mean corpuscular hemoglobin concentration [Mass/volume] by Automated count 34.1 g/dL 31.0 - 36.0 [facility] Erythrocyte distribution width [Ratio] by Automated count 14.3 % 11.5 - 14.5 [facility] Platelets [#/volume] in Blood by Automated count 239 10^3/uL 150 - 45 0 [facility] Platelet mean volume [Entitic volume] in Blood by Automated count 8.8 fL 7.4 - 10.4 [facility] Neutrophils/100 leukocytes in Blood by Automated count 84.6 % 37. 0 - 80.0 H [facility] Lymphocytes/100 leukocytes in Blood by Manual count 8.8 % 25.0 - 40.0 L [facility] Monocytes/100 leukocytes in Blood by Automated count 5.2 % 3.0 - 8.0 [facility] Eosinophils/100 leukocytes in Blood by Automated count 0.0 % 0.0 - 7.0 [facility] 0.0 %IG 1.4 % 0.0 - 0.0 [facility] %NRBC 0.0 % 0.0 - 0.0 [facility] Neutrophils [#/volume] in Blood by Automated count 3.57 10^3/uL 2.00 - 6.90 [facility] Lymphocytes [#/volume] in Blood by Automated count 0.37 10^3/uL 0.60 - 3.40 L [facility] Monocytes [#/volume] in Blood by Automated count 0.22 10^3/uL 0.00 - 0.90 [facility] Eosinophils [#/volume] in Blood by Automated count 0.00 10^3/uL 0.00 - 0.70 [facility] Basophils [#/volume] in Blood by Automated count 0.00 10^3/uL 0.00 - 0.20 [facility] #IG 0.06 10^3/uL 0.00 - 0.10 [facility] H ospital #NRBC 0.00 10^3/uL 0.00 - 0.00 [facility] MANUAL DIFF SEE BELOW [facility] ital Segmented neutrophils/100 leukocytes in Blood by Manual count 90 % 37 - 80 H [facility] BAND 0 % 0 - 5 [facility] al %LYMPH 8 % 25 - 40 [facility] %MONO 2 % 3 - 8 [facility] %EOS 0 % 0 - 7 [facility] 0 RBC MORPH NOT INDICATED [facility] Ho spital ID Date Data Source [id number] 12/21/2020 07:01:00 AM EST [facility] Name Value Range Interpretation Code Description Data Maura rce(s) Supporting Document(s) COMPREHENSIVE METABOLIC PANEL [facility] COMPREHENSIVE METABOLIC PANEL Sodium [Moles/volume] in Serum or Plasma 135 mEq/L 134 - 153 [facility] Potassium [Moles/volume] in Serum or Plasma 4.9 mEq/L 3.6 - 5.0 [facility] Chloride [Moles/volume] in Serum or Plasma 98 mEq/L 98 - 107 [facility] Carbon dioxide, total [Moles/volume] in Serum or Plasma 29 MEQ/L 22 - 30 [facility] Glucose [Mass/volume] in Serum or Plasma 144 MG/DL 70 - 99 H [facility] BUN 15 MG/DL 7 - 21 [facility] Creatinine [Mass/volume] in Serum or Plasma 0.8 MG/DL 0.7 - 1.5 [facility] BUN/CREAT 19 8 - 27 [facility] Protein [Mass/volume] in Serum or Plasma 5.6 G/DL 6.3 - 8.2 L [facility] Albumin [Mass/volume] in Serum or Plasma 3.2 G/DL 3.9 - 5.0 L [facility] Globulin [Mass/volume] in Serum by calculation 2.4 GM/DL 2.4 - 3.2 [facility] A/G RATIO 1.3 0.8 - 2.0 [facility] Calcium [Mass/volume] in Serum or Plasma 8.7 MG/DL 8.4 - 10.2 [facility] Bilirubin.total [Mass/volume] in Serum or Plasma <0.7 MG/DL 0.2 - 1.3 [facility] Alkaline phosphatase [Enzymatic activity/volume] in Serum or Plasma 102 U/L 38 - 126 [facility] Aspartate aminotransferase [Enzymatic activity/volume] in Serum or Plasma 19 U/L 5 - 40 [facility] Alanine aminotransferase [Enzymatic activity/volume] in Seru m or Plasma 17 U/L 7 - 56 [facility] Anion gap 3 in Serum or Plasma 8.0 mmol/L 8.0 - 16.0 [facility] AGE 55 yrs [facility] al NON-AA GFR >60 mL/min [facility] ital AFR AMER GFR >60 mL/min [facility] Ho spital Male GFR In [...] >32 mL/min Normal ID Date Data Source [id number] 12/21/2020 06:56:00 AM EST [facility] Name Value Range Interpretation Code Description Data Maura rce(s) Supporting Document(s) Magnesium [Mass/volume] in Serum or Plasma 2.1 MG/DL 1.7 - 2.2 [facility] ID Date Data Source [id number] 12/20/2020 06:00:00 PM EST [facility] (Osmel Alvarez MD) Name Value Range Interpretation Code Description Data Maura rce(s) Supporting Document(s) Laboratory test finding (navigational concept) Laboratory test result [facility] (Osmel Alvarez MD) CORRECTE D REPORT _CULTURE SPUTUM_ ^$[id number] ^^[id number] $$[id number] $$[id number] $$450338 $$[id number] $$432352 $$386037 $$[id number] ^^679764 $$990761 ^^993008 $$969723 $$597971 $$865105 $$[id number] $$[id number] REPORTED DATE/TIME: 12/24/2020 15:05 Culture: CULTURE SPUTUM Status: Final White Blood Cells: P1 Few Epithelial Cells: P1 Few Result 1: P1 Rare gram positive cocci in pairs, chains, and clusters -- Continued on next page -- Patient: JUANITO Daniels Order: [id number] Page 2 Culture: CULTURE SPUTUM Status: Final Gram Stain Evaluation: P1 This specimen is of good quality and is acceptable for routine bacterial culture. Lower Respiratory Culture: P1 Routine respiratory jerome Previous result entered on 12/23/2020 14:49 ET Routine respiratory jerome P1 Test performed by: [facility] #: [id number] [address] [id number] [facility] [id number] Steam Room Attendant : Yonas Rascon MD NPI #: Grain Distributor : 12/22/20.1601.XMT.SENT REF 12/23/20.1714.XMT.SENT REF 12/23/20.1714. .to [facility] via mode m FOLLOWING RESULTS REPORTED IN ERROR REPORTED DATE/TIME: 12/23/2020 15:06 Culture: CULTURE SPUTUM Status: Prelim Culture: CULTURE SPUTUM Status: Prelim ID Date Data Source [id number] 12/20/2020 06:00:00 PM EST [facility] (Osmel Alvarez MD) Name Value Range Interpretation Code Description Data Maura rce(s) Supporting Document(s) Laboratory test finding (navigational concept) Laboratory test result [facility] (Osmel Alvarez MD) ID Date Data Source [id number] 12/20/2020 06:00:00 PM EST [facility] (Osmel Alvarez [...] SOURCE: Clean Catch ID Date Data Source [id number] 12/24/2020 04:08:00 PM EST [facility] Name Value Range Interpretation Code Description Data Maura rce(s) Supporting Document(s) CULTURE [facility] H ospital CORRECTE D REPORT _CULTURE SPUTUM_$$[id number]$$[id number]$$[id number]$$[id number]$$276420$$007972$$312924$$420777$$952318$ $245585$$857733$$226165$$[id number] DATE/TIME: 12/24/2020 15:05Culture: CULTURE SPUTUM Status: FinalWhite Blood Cells: [id number] ithelial Cells: [id number] 1: P1Rare gram positive cocci in pairs, chains, and clusters -- Continued on next page --Patient: JUANITO Daniels Order: [id number] Page 2Culture: CULTURE SPUTUM Status: Final ====Gram Stain Evaluation: P1This specimen is of good quality and is acceptable for routinebacterial culture.Lower Respiratory Culture: [id number] respiratory jerome Previous result entered on 12/23/2020 14:49 ET Routine respiratory floraP1 Test performed by: [facility] #: [id number] [address] [place] [id number] [facility] [address]Medical Director : Yonas Rascon MD NPI #:Grain Distributor : 12/22/20.1601.XMT.SENT REF 12/23/20.1714.XMT.SENT REF 12/23/20.1714. .to [facility] modem FOLLOWING RESULTS REPORTED IN ERROR REPORTED DATE/TIME: 12/23/2020 15:06Culture: CULTURE SPUTUM Status: PrelimCulture: CULTURE SPUTUM Status: Prelim CORRECT FINAL REPORT [facility]ital ID Date Data Source [id number] 12/20/2020 06:58:00 PM EST [facility] Name Value Range Interpretation Code Description Data Maura rce(s) Supporting Document(s) [facility] COL[facility] yellow NORMAL: Yellow [facility] CLARITY clear NORMAL: Clear [facility] Ho spital Specific gravity of Urine by Test strip 1.015 1.001 - 1.030 [facility] pH 8 5 - 9 [facility] al Glucose [Mass/volume] in Urine by Test strip NORM NORMAL: Negat [facility] Bilirubin.total [Presence] in Urine by Test strip NEG NORMAL: Negative [facility] Ketones [Presence] in Urine by Test strip 15 NORMAL: Negative [facility] Protein [Mass/volume] in Urine by Test strip 15 NORMAL: Negat [facility] Nitrite [Presence] in Urine by Test strip NEG NORMAL: Negative [facility] BLOOD NEG NORMAL: Negative [facility] Leukocyte esterase [Presence] in Urine by Test strip NEG SHAUNA L: Negative [facility] Urobilinogen [Mass/volume] in Urine by Test strip NOR less lupe n 1.0 mg/dL [facility] MICROSCOPIC See Below [facility] ital WBC 1 - 3 NORMAL: NONE SEEN [facility] Erythrocytes [#/volume] in Urine by Test strip 0 - 1 NORMAL: NON E SEEN [facility] EPITHELIAL FEW NORMAL: NONE SEEN [facility] Crystals [type] in Urine sediment by Light microscopy See Below [facility] TRIPLE PHOS 3+ NORMAL: NONE [facility]EN [facility] [place], [place] ID Date Data Source [id number] 12/20/2020 02:00:00 PM EST [facility] (Osmel Alvarez MD) Name Value Range Interpretation Code Description Data Maura rce(s) Supporting Document(s) Coronavirus Covid-19 Laboratory test result [facility] (Osmel Alvarez MD) First test? N Employed in healthcare? N ~Symptomatic as defined by CDC? Y Hospitalized? Y~Reside ID Date Data Source [id number] 12/20/2020 02:00:00 PM EST [facility] Name Value Range Interpretation Code Description Data Maura rce(s) Supporting Document(s) SARS coronavirus [address] [facility] This lab was ordered by [facility] and reported by [facility]. ID Date Data Source [id number] 12/22/2020 08:49:00 PM EST [facility] Name Value Range Interpretation Code Description Data Maura rce(s) Supporting Document(s) SARS-CoV-2, DAR Not Detected Not Detected [facility] This nucleic acid amplification test was developed and its performancecharacteristics determined by [employer]. Nucleic acidamplification tests include RT-PCR and TMA. [...] in this assay. ID Date Data Source [id number] 12/25/2020 06:20:00 PM EST [facility] Name Value Range Interpretation Code Description Data Maura rce(s) Supporting Document(s) Bacteria identified in Blood by Culture [facility] NO GROWTH AFTER 5 DAYS ID Date Data Source [id number] 12/20/2020 01:45:00 PM EST [facility] (Osmel Alvarez MD) Name Value Range Interpretation Code Description Data Maura rce(s) Supporting Document(s) Laboratory test finding (navigational concept) Laboratory test result [facility] (Osmel Alvarez MD) _CULTURE BLOOD_ { PRELIM TEST PERFORMED AT [address] [address] CLIA# [id number] SEE SCANNED REPORT ID Date Data Source [id number] 12/26/2020 12:56:00 PM [facility] Name Value Range Interpretation Code Description Data Maura rce(s) Supporting Document(s) [place] BLOOD [facility] spital _CULTURE BLOOD_{ PRELIM TEST PERFORMED AT [address] [address] CLIA# [id number] SEE SCANNED REPORT ID Date Data Source [id number] 12/20/2020 01:39:00 PM EST [facility] (Osmel Alvarez MD) Name Value Range Interpretation Code Description Data Maura rce(s) Supporting Document(s) Laboratory test finding (navigational concept) Laboratory test result [facility] (Osmel Alvarez MD) _CULTURE BLOOD_ { PRELIM TEST PERFORMED AT [address] [address] CLIA# [id number] SEE SCANNED REPORT ID Date Data Source [id number] 12/26/2020 12:56:00 PM [facility] Name Value Range Interpretation Code Description Data Maura rce(s) Supporting Document(s) [facility] spital _CULTURE BLOOD_{ PRELIM TEST PERFORMED AT [address] [address] CLIA# [id number] SEE SCANNED REPORT ID Date Data Source [id number] 12/20/2020 11:52:00 AM EST [facility] (Osmel Alvarez [...] CDC?: Y~Hospitalized?: N ID Date Data Source [id number] 12/20/2020 11:52:00 AM EST [facility] Name Value Range Interpretation Code Description Data Maura rce(s) Supporting Document(s) COVID19 Case rprt NOT DETECTED [facility] This lab was ordered by [facility] and reported by [facility]. ID Date Data Source [id number] 12/20/2020 12:44:00 PM EST [facility] NOT DETECTEDNOT DETECTED{ PROC EDURAL CONTROL [...] rce(s) Supporting Document(s) ID Date Data Source [id number] 12/20/2020 12:39:00 PM [facility] Name Value Range Interpretation Code Description Data Maura rce(s) Supporting Document(s) Influenza virus A Ag [Presence] in Nasopharynx by [facility] y NEGATIVE NORMAL: NEGATIVE [facility] Influenza virus B Ag [Presence] in Nasopharynx by [facility] y NEGATIVE NORMAL: NEGATIVE [facility] NEGATIVENEGATIVE PROCEDURAL CO NTROL VALID KIT [...] other patient managementdecisions. ID Date Data Source [id number] 12/20/2020 01:03:00 PM [facility] Name Value Range Interpretation Code Description Data Maura rce(s) Supporting Document(s) Fibrin D-dimer FEU [Mass/volume] in Platelet poor plasma 2.90 ug /mL 0.27 - 0.50 H [facility] ID Date Data Source [id number] 12/20/2020 12:54:00 PM [facility] Name Value Range Interpretation Code Description Data Maura rce(s) Supporting Document(s) TROPONIN T <0.01 NG/ML 0.00 - 0.10 [facility] ospital TROPONIN T0.1 ng/ml Recommended as the c linical threshold value forTroponin T. ID Date Data Source [id number] 12/20/2020 12:49:00 PM [facility] Name Value Range Interpretation Code Description Data Maura e(s) Supporting Document(s) CBC W/AUTOMATED DIFF [facility] COMPLETE BLOOD COUNT Leukocytes [#/volume] in Blood by Automated count 6.0 10^3/uL 4.2 - 1 1.0 [facility] Erythrocytes [#/volume] in Blood by Automated count 3.00 10^6/uL 4. 20 - 5.40 L [facility] Hemoglobin [Mass/volume] in Blood 10.3 g/dL 12.0 - 16.0 L [facility] Hematocrit [Volume Fraction] of Blood by Automated count 30.9 % 3 7.0 - 47.0 L [facility] Erythrocyte mean corpuscular volume [Entitic volume] b y Automated count 103.0 fL 81.0 - 101 H [facility] Erythrocyte mean corpuscular hemoglobin [Entitic mass] by Automated count 34.3 pg 27.0 - 34.0 H [facility] Erythrocyte mean corpuscular hemoglobin concentration [Mass/volume] by Automated count 33.3 g/dL 31.0 - 36.0 [facility] Erythrocyte distribution width [Ratio] by Automated count 14.7 % 11.5 - 14.5 H [facility] Platelets [#/volume] in Blood by Automated count 302 10^3/uL 150 - 45 0 [facility] Platelet mean volume [Entitic volume] in Blood by Automated count 8.9 fL 7.4 - 10.4 [facility] Neutrophils/100 leukocytes in Blood by Automated count 78.5 % 37. 0 - 80.0 [facility] Lymphocytes/100 leukocytes in Blood by Manual count 6.6 % 25.0 - 40.0 L [facility] Monocytes/100 leukocytes in Blood by Automated count 3.6 % 3.0 - 8.0 [facility] Eosinophils/100 leukocytes in Blood by Automated count 10.8 % 0.0 - 7.0 H [facility] Basophils/100 leukocytes in Blood by Automated count 0.2 % 0.0 - 2.5 [facility] %IG 0.3 % 0.0 - 0.0 [facility] %[facility] 0.0 % 0.0 - 0.0 [facility] al Neutrophils [#/volume] in Blood by Automated count 4.73 10^3/uL 2.00 - 6.90 [facility] Lymphocytes [#/volume] in Blood by Automated count 0.40 10^3/uL 0.60 - 3.40 L [facility] Monocytes [#/volume] in Blood by Automated count 0.22 10^3/uL 0.00 - 0.90 [facility] Eosinophils [#/volume] in Blood by Automated count 0.65 10^3/uL 0.00 - 0.70 [facility] Basophils [#/volume] in Blood by Automated count 0.01 10^3/uL 0.00 - 0.20 [facility] #IG 0.02 10^3/uL 0.00 - 0.10 [facility] ospital #NRBC 0.00 10^3/uL 0.00 - 0.00 [facility] MANUAL DIFF NOT INDICATED [facility] RBC MORPH NOT INDICATED [facility] spital ID Date Data Source [id number] 12/20/2020 12:46:00 PM EST [facility] Name Value Range Interpretation Code Description Data Maura rce(s) Supporting Document(s) COMPREHENSIVE METABOLIC PANEL [facility] COMPREHENSIVE METABOLIC PANEL Sodium [Moles/volume] in Serum or Plasma 133 mEq/L 134 - 153 L [facility] Potassium [Moles/volume] in Serum or Plasma 4.4 mEq/L 3.6 - 5.0 [facility] Chloride [Moles/volume] in Serum or Plasma 93 mEq/L 98 - 107 L [facility] Carbon dioxide, total [Moles/volume] in Serum or Plasma 33 MEQ/L 22 - 30 H [facility] Glucose [Mass/volume] in Serum or Plasma 102 MG/DL 70 - 99 H [facility] BUN 14 MG/DL 7 - 21 [facility] al Creatinine [Mass/volume] in Serum or Plasma 0.9 MG/DL 0.7 - 1.5 [facility] BUN/CREAT 16 8 - 27 [facility] Protein [Mass/volume] in Serum or Plasma 7.2 G/DL 6.3 - 8.2 [facility] Albumin [Mass/volume] in Serum or Plasma 3.4 G/DL 3.9 - 5.0 L [facility] Globulin [Mass/volume] in Serum by calculation 3.8 GM/DL 2.4 - 3.2 H [facility] A/G RATIO 0.9 0.8 - 2.0 [facility] Calcium [Mass/volume] in Serum or Plasma 8.9 MG/DL 8.4 - 10.2 [facility] Bilirubin.total [Mass/volume] in Serum or Plasma <0.7 MG/DL 0.2 - 1.3 [facility] Alkaline phosphatase [Enzymatic activity/volume] in Serum or Plasma 104 U/L 38 - 126 [facility] Aspartate aminotransferase [Enzymatic activity/volume] in Serum or Plasma 22 U/L 5 - 40 [facility] Alanine aminotransferase [Enzymatic activity/volume] in Seru m or Plasma 16 U/L 7 - 56 [facility] Anion gap 3 in Serum or Plasma 7.0 mmol/L 8.0 - 16.0 L [facility] AGE 55 yrs [facility] al NON-AA GFR >60 mL/min [facility] ital AFR AMER GFR >60 mL/min [facility] Ho spital Male GFR In [...] >32 mL/min Normal ID Date Data Source [id number] 12/20/2020 12:46:00 PM [facility] Name Value Range Interpretation Code Description Data Maura rce(s) Supporting Document(s) BNP 755 PG/ML 0 - 125 H [facility] al ID Date Data Source [id number] 12/20/2020 12:18:00 PM [facility] Name Value Range Interpretation Code Description Data Maura rce(s) Supporting Document(s) Lactate [Moles/volume] in Serum or Plasma 1.9 MMOL/L 0.2 - 2.2 [facility] ID Date Data Source [id number] 12/11/2020 10:18:00 [place] [address] PHONE: [phone] FAX: [phone] Name .................. : JUANITO Daniels Acct Number.................. : [id number] ROOM. ................. : Number ................... : [id number] Stay type ............. : O/P Discharge Date......... ... : 12/08/20 Admit Date ......... : 12/08/20 Admit Phys .................... : MELANY NAVARRO Date of ....... : 1965 Family Phys ................... : SEQUEIRA Phone .................. : [phone] Age ................................ : 55 Film# .................. .:[id number] Sex ................................. : F Unsigned transcriptions are preliminary reports and do not represent a medical or legal document CHEST 2 VIEWS [id number] COMPLETE:12/08/20 12:44 KBO 7777 (REASON FOR CHEST: COUGH CHEST X-RAY: 2-VIEWS COMPARISON: 08/01/20 CLINICAL HISTORY: Cough. FINDINGS: There is continued left upper lobe and left perihilar mass, unchanged. The right lung and base of the left lung are clear. There is a right jugular [id number]-[id number] with the tip in the superior vena cava. Status post fusion of the thoracic spine using bilateral Gonzalez rods. IMPRESSION: Stable examination with left upper lobe and left perihilar mass. Electronically Reviewed and Signed By Duong Guerrero MD , 12/11/20 10:18, MRA Transcribe Initials: REYES , Transcribe Date: 12/09/20 00:46, Dictation Date: Copy for: MELANY TAVAREZ via fax Copy for: [facility] REC Page 1 of 1 Name Value Range Interpretation Code Description Data Maura rce(s) Supporting Document(s) ID Date Data Source [id number] 12/04/2020 01:05:00 PM [facility] Patient Name: Chantale Solomon : 1965 Sex: F Pt Unit #: [id number] Location:[facility] Provider: Visit Date/Time: 12/04/20 Primary Insurance: BC/BS [employer] EM[employer]OYEES Secondary Insurance: Self Pay Intake Intake Visit Reasons: Telemed Visit Nurse Note: pt is doing telemed call due to being in the hospital with covid pt was in [facility] [place] Is patient in pain?: Yes (lower back) [...] Provider office Location of the Patient: Home [facility] Medical History (Updated 12/04/20 @ 13:50 [...] high school graduate service: No 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 DISCHARGED FROM [facility] ON 11/29/2020. BILATERAL COVID PNEUMONIA. FEELING [...] exertion Details: FINISHED LEVAQUIN. HAS F/U WITH [facility] IN A COUPLE WEEKS. O2 CONTINUOUS AT [...] Acute upper respiratory infection, unspecified SNOMED Code(s): 175811696 Category: Medical Plan - Gail Reyes NP: HAS F/U APPT WITH [facility] IN A COUPLE WEEKS.. CONT. CURRENT MEDS. [...] rce(s) Supporting Document(s) ID Date Data Source [id number] 11/28/2020 07:36:00 AM EST [facility] Name Value Range Interpretation Code Description Data Maura rce(s) Supporting Document(s) COMPREHENSIVE METABOLIC PANEL [facility] COMPREHENSIVE METABOLIC PANEL Sodium [Moles/volume] in Serum or Plasma 135 mEq/L 134 - 153 [facility] Potassium [Moles/volume] in Serum or Plasma 5.0 mEq/L 3.6 - 5.0 [facility] Chloride [Moles/volume] in Serum or Plasma 100 mEq/L 98 - 107 [facility] Carbon dioxide, total [Moles/volume] in Serum or Plasma 27 MEQ/L 22 - 30 [facility] Glucose [Mass/volume] in Serum or Plasma 166 MG/DL 70 - 99 H [facility] BUN 21 MG/DL 7 - 21 [facility] al Creatinine [Mass/volume] in Serum or Plasma 0.9 MG/DL 0.7 - 1.5 [facility] BUN/CREAT 23 8 - 27 [facility] al Protein [Mass/volume] in Serum or Plasma 6.0 G/DL 6.3 - 8.2 L [facility] Albumin [Mass/volume] in Serum or Plasma 3.5 G/DL 3.9 - 5.0 L [facility] Globulin [Mass/volume] in Serum by calculation 2.5 GM/DL 2.4 - 3.2 [facility] A/G RATIO 1.4 0.8 - 2.0 [facility] Calcium [Mass/volume] in Serum or Plasma 8.3 MG/DL 8.4 - 10.2 L [facility] Bilirubin.total [Mass/volume] in Serum or Plasma <0.7 MG/DL 0.2 - 1.3 [facility] Alkaline phosphatase [Enzymatic activity/volume] in Serum or Plasma 75 U/L 38 - 126 [facility] Aspartate aminotransferase [Enzymatic activity/volume] in Serum or Plasma 21 U/L 5 - 40 [facility] Alanine aminotransferase [Enzymatic activity/volume] in Seru m or Plasma 23 U/L 7 - 56 [facility] Anion gap 3 in Serum or Plasma 8.0 mmol/L 8.0 - 16.0 [facility] AGE 55 yrs [facility] NON-AA GFR >60 mL/min [facility] ital AFR AMER GFR >60 mL/min [facility] spital Male GFR In [...] >32 mL/min Normal ID Date Data Source [id number] 11/28/2020 07:29:00 AM EST [facility] Name Value Range Interpretation Code Description Data Maura rce(s) Supporting Document(s) CBC W/AUTOMATED DIFF [facility] COMPLETE BLOOD COUNT Leukocytes [#/volume] in Blood by Automated count 7.7 10^3/uL 4.2 - 1 1.0 [facility] Erythrocytes [#/volume] in Blood by Automated count 3.29 10^6/uL 4. 20 - 5.40 L [facility] Hemoglobin [Mass/volume] in Blood 11.4 g/dL 12.0 - 16.0 L [facility] Hematocrit [Volume Fraction] of Blood by Automated count 33.8 % 3 7.0 - 47.0 L [facility] Erythrocyte mean corpuscular volume [Entitic volume] b y Automated count 102.7 fL 81.0 - 101 H [facility] Erythrocyte mean corpuscular hemoglobin [Entitic mass] by Automated count 34.7 pg 27.0 - 34.0 H [facility] Erythrocyte mean corpuscular hemoglobin concentration [Mass/volume] by Automated count 33.7 g/dL 31.0 - 36.0 [facility] Erythrocyte distribution width [Ratio] by Automated count 13.3 % 11.5 - 14.5 [facility] Platelets [#/volume] in Blood by Automated count 265 10^3/uL 150 - 45 0 [facility] Platelet mean volume [Entitic volume] in Blood by Automated count 9.8 fL 7.4 - 10.4 [facility] Neutrophils/100 leukocytes in Blood by Automated count 85.6 % 37. 0 - 80.0 H [facility] Lymphocytes/100 leukocytes in Blood by Manual count 5.3 % 25.0 - 40.0 L [facility] Monocytes/100 leukocytes in Blood by Automated count 7.1 % 3.0 - 8.0 [facility] Eosinophils/100 leukocytes in Blood by Automated count 0.0 % 0.0 - 7.0 [facility] Basophils/100 leukocytes in Blood by Automated count 0.3 % 0.0 - 2.5 [facility] %IG 1.7 % 0.0 - 0.0 H [facility] al %NRBC 0.0 % 0.0 - 0.0 [facility] al Neutrophils [#/volume] in Blood by Automated count 6.60 10^3/uL 2.00 - 6.90 [facility] Lymphocytes [#/volume] in Blood by Automated count 0.41 10^3/uL 0.60 - 3.40 L [facility] Monocytes [#/volume] in Blood by Automated count 0.55 10^3/uL 0.00 - 0.90 [facility] Eosinophils [#/volume] in Blood by Automated count 0.00 10^3/uL 0.00 - 0.70 [facility] Basophils [#/volume] in Blood by Automated count 0.02 10^3/uL 0.00 - 0.20 [facility] #IG 0.13 10^3/uL 0.00 - 0.10 H [facility] ospital #NRBC 0.00 10^3/uL 0.00 - 0.00 [facility]ital MANUAL DIFF NOT INDICATED [facility] RBC MORPH NOT INDICATED [facility] spital ID Date Data Source [id number] 11/27/2020 12:32:00 PM EST [facility] [address] [place] [address] PHONE: [phone] FAX: [phone] Name .................. : JUANITO Daniels Acct Number.................. : [id number] ROOM. ................. : [facility] MR Number ................... : [id number] Stay type ............. : I/P Discharge Date......... ... : Admit Date ......... : 11/24/20 Admit Phys .................... : DOMENIC Date of ....... : 1965 Family Phys ................... : Syndiant Phone .................. : [phone] Age ................................ : 55 Film# .................. .:[id number] Sex ................................. : F Unsigned transcriptions are preliminary reports and do not represent a medical or legal document CT THORAX W/O CONTRAST [id number] COMPLETE:11/24/20 14:55 RLB 2725 Reason(s): worsening L [...] dose: 560.3 mGycm Page 1 of 2 [facility] [address] [facility] [place] [address] PHONE: [phone] FAX: [phone] Name .................. : JUANITO Daniels Acct Number.................. : [id number] ROOM. ................. : CCU1C MR Number ................... : [id number] Stay type ............. : I/P Discharge Date......... ... : Admit Date ......... : 11/24/20 Admit Phys .................... : DOMENIC Date of ....... : 1965 Family Phys ................... : SEQUEIRA Phone .................. : [phone] Age .. .............................. : 55 Film# .................. .:[id number] Sex ................................. : F Unsigned transcriptions are preliminary reports and do not represent a medical or legal document CT THORAX W/O CONTRAST [id number] COMPLETE:11/24/20 14:55 RLB 2725 Reason(s): worsening L air space on CXR, hx lung ca and covid 19 pos Electronically Reviewed and Signed By Dudley Bush MD , 11/27/20 12:32, MYNOR Transcribe Initials: DZ , Transcribe Date: 11/25/20 01:37, Dictation Date: Copy for: [facility] Copy for: [address] [facility] REC Page 2 of 2 Name Value Range Interpretation Code Description Data Maura rce(s) Supporting Document(s) ID Date Data Source [id number] 11/27/2020 12:31:00 PM [facility] [address] [place] [address] PHONE: [phone] FAX: [phone] Name .................. : JUANITO ROMAN Jeremiah Acct Number.................. : [id number] ROOM. ................. : TR-06 MR Number ................... : [id number] Stay type ............. : E/R Discharge Date......... ... : Admit Date ......... : 11/24/20 Admit Phys .................... : VALERIA SILVIO Date of ....... : 1965 Family Phys ................... : REGINE GAIL Phone .................. : [phone] Age ................................ : 55 Film# .................. .:[id number] Sex ................................. 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 Posterior thoracic stabilization hardware. IMPRESSION: Worsening left air space disease with complete whiteout of the left hemithorax. Underlying mass or infiltrate not excluded. ____ Electronically Reviewed and Signed By Dudley Bush MD , 11/27/20 12:31, MYNOR Transcribe Initials: SSR, Transcribe Date: 11/24/20 14:19, Dictation Date: Copy for: 002 [facility] Copy for: [address] [facility] REC Page 1 of 1 Name Value Range Interpretation Code Description Data Maura rce(s) Supporting Document(s) ID Date Data Source [id number] 11/27/2020 08:45:00 AM [facility] Name Value Range Interpretation Code Description Data Maura rce(s) Supporting Document(s) Magnesium [Mass/volume] in Serum or Plasma 1.6 MG/DL 1.7 - 2.2 L [facility] ID Date Data Source [id number] 11/27/2020 07:42:00 AM [facility] Name Value Range Interpretation Code Description Data Maura rce(s) Supporting Document(s) CBC W/AUTOMATED DIFF [facility] COMPLETE BLOOD COUNT Leukocytes [#/volume] in Blood by Automated count 7.5 10^3/uL 4.2 - 1 1.0 [facility] Erythrocytes [#/volume] in Blood by Automated count 3.26 10^6/uL 4. 20 - 5.40 L [facility] Hemoglobin [Mass/volume] in Blood 11.4 g/dL 12.0 - 16.0 L [facility] Hematocrit [Volume Fraction] of Blood by Automated count 33.9 % 3 7.0 - 47.0 L [facility] Erythrocyte mean corpuscular volume [Entitic volume] b y Automated count 104.0 fL 81.0 - 101 H [facility] Erythrocyte mean corpuscular hemoglobin [Entitic mass] by Automated count 35.0 pg 27.0 - 34.0 H [facility] Erythrocyte mean corpuscular hemoglobin concentration [Mass/volume] by Automated count 33.6 g/dL 31.0 - 36.0 [facility] Erythrocyte distribution width [Ratio] by Automated count 13.6 % 11.5 - 14.5 [facility] Platelets [#/volume] in Blood by Automated count 254 10^3/uL 150 - 45 0 [facility] Platelet mean volume [Entitic volume] in Blood by Automated count 9.8 fL 7.4 - 10.4 [facility] Neutrophils/100 leukocytes in Blood by Automated count 83.9 % 37. 0 - 80.0 H [facility] Lymphocytes/100 leukocytes in Blood by Manual count 6.3 % 25.0 - 40.0 L [facility] Monocytes/100 leukocytes in Blood by Automated count 7.6 % 3.0 - 8.0 [facility] Eosinophils/100 leukocytes in Blood by Automated count 0.0 % 0.0 - 7.0 [facility] Basophils/100 leukocytes in Blood by Automated count 0.3 % 0.0 - 2.5 [facility] %IG 1.9 % 0.0 - 0.0 [facility] %NR[facility] 0.0 % 0.0 - 0.0 [facility] al Neutrophils [#/volume] in Blood by Automated count 6.30 10^3/uL 2.00 - 6.90 [facility] Lymphocytes [#/volume] in Blood by Automated count 0.47 10^3/uL 0.60 - 3.40 L [facility] Monocytes [#/volume] in Blood by Automated count 0.57 10^3/uL 0.00 - 0.90 [facility] Eosinophils [#/volume] in Blood by Automated count 0.00 10^3/uL 0.00 - 0.70 [facility] Basophils [#/volume] in Blood by Automated count 0.02 10^3/uL 0.00 - 0.20 [facility] #IG 0.14 10^3/uL 0.00 - 0.10 [facility] H ospital #NRBC 0.00 10^3/uL 0.00 - 0.00 [facility] ospital MANUAL DIFF NOT INDICATED [facility] RBC MORPH NOT INDICATED [facility] spital ID Date Data Source [id number] 11/27/2020 07:35:00 AM EST [facility] Name Value Range Interpretation Code Description Data Maura rce(s) Supporting Document(s) COMPREHENSIVE METABOLIC PANEL [facility] COMPREHENSIVE METABOLIC PANEL Sodium [Moles/volume] in Serum or Plasma 137 mEq/L 134 - 153 [facility] Potassium [Moles/volume] in Serum or Plasma 5.0 mEq/L 3.6 - 5.0 [facility] Chloride [Moles/volume] in Serum or Plasma 102 mEq/L 98 - 107 [facility] Carbon dioxide, total [Moles/volume] in Serum or Plasma 27 MEQ/L 22 - 30 [facility] Glucose [Mass/volume] in Serum or Plasma 149 MG/DL 70 - 99 H [facility] BUN 20 MG[facility]DL 7 - [facility] Creatinine [Mass/volume] in Serum or Plasma 0.9 MG/DL 0.7 - 1.5 [facility] BUN/CREAT 22 8 - 27 [facility] al Protein [Mass/volume] in Serum or Plasma 5.9 G/DL 6.3 - 8.2 L [facility] Albumin [Mass/volume] in Serum or Plasma 3.6 G/DL 3.9 - 5.0 L [facility] Globulin [Mass/volume] in Serum by calculation 2.3 GM/DL 2.4 - 3.2 L [facility] A/G RATIO 1.6 0.8 - 2.0 [facility] al Calcium [Mass/volume] in Serum or Plasma 8.1 MG/DL 8.4 - 10.2 L [facility] Bilirubin.total [Mass/volume] in Serum or Plasma <0.7 MG/DL 0.2 - 1.3 [facility] Alkaline phosphatase [Enzymatic activity/volume] in Serum or Plasma 78 U/L 38 - 126 [facility] Aspartate aminotransferase [Enzymatic activity/volume] in Serum or Plasma 21 U/L 5 - 40 [facility] Alanine aminotransferase [Enzymatic activity/volume] in Seru m or Plasma 18 U/L 7 - 56 [facility] Anion gap 3 in Serum or Plasma 8.0 mmol/L 8.0 - 16.0 [facility] AGE 55 yrs [facility] al NON-AA GFR >60 mL/min [facility] ital AFR AMER GFR >60 mL/min [facility] Ho spital Male GFR In [...] >32 mL/min Normal ID Date Data Source [id number] 11/26/2020 09:43:00 AM EST [facility] Name Value Range Interpretation Code Description Data Maura rce(s) Supporting Document(s) COMPREHENSIVE METABOLIC PANEL [facility] COMPREHENSIVE METABOLIC PANEL Sodium [Moles/volume] in Serum or Plasma 136 mEq/L 134 - 153 [facility] Potassium [Moles/volume] in Serum or Plasma 4.2 mEq/L 3.6 - 5.0 [facility] Chloride [Moles/volume] in Serum or Plasma 100 mEq/L 98 - 107 [facility] Carbon dioxide, total [Moles/volume] in Serum or Plasma 24 MEQ/L 22 - 30 [facility] Glucose [Mass/volume] in Serum or Plasma 228 MG/DL 70 - 99 H [facility] BUN 16 MG/DL 7 - 21 [facility] Creatinine [Mass/volume] in Serum or Plasma 0.9 MG/DL 0.7 - 1.5 [facility] BUN/CREAT 18 8 - 27 [facility] Protein [Mass/volume] in Serum or Plasma 6.4 G/DL 6.3 - 8.2 [facility] Albumin [Mass/volume] in Serum or Plasma 3.9 G/DL 3.9 - 5.0 [facility] Globulin [Mass/volume] in Serum by calculation 2.5 GM/DL 2.4 - 3.2 [facility] A/G RATIO 1.6 0.8 - 2.0 [facility] Calcium [Mass/volume] in Serum or Plasma 8.1 MG/DL 8.4 - 10.2 L [facility] Bilirubin.total [Mass/volume] in Serum or Plasma <0.7 MG/DL 0.2 - 1.3 [facility] Alkaline phosphatase [Enzymatic activity/volume] in Serum or Plasma 84 U/L 38 - 126 [facility] Aspartate aminotransferase [Enzymatic activity/volume] in Serum or Plasma 19 U/L 5 - 40 [facility] Alanine aminotransferase [Enzymatic activity/volume] in Seru m or Plasma 15 U/L 7 - 56 [facility] Anion gap 3 in Serum or Plasma 12.0 mmol/L 8.0 - 16.0 [facility] AGE 55 yrs [facility] al NON-AA GFR >60 mL/min [facility] ital AFR AMER GFR >60 mL/min [facility] Ho spital Male GFR In [...] >32 mL/min Normal ID Date Data Source [id number] 11/26/2020 09:32:00 AM [facility] Name Value Range Interpretation Code Description Data Maura rce(s) Supporting Document(s) CBC NO DIFF [facility] COMPLETE BLOOD COUNT Leukocytes [#/volume] in Blood by Automated count 6.1 10^3/uL 4.2 - 1 1.0 [facility] Erythrocytes [#/volume] in Blood by Automated count 3.36 10^6/uL 4. 20 - 5.40 L [facility] Hemoglobin [Mass/volume] in Blood 11.9 g/dL 12.0 - 16.0 L [facility] Hematocrit [Volume Fraction] of Blood by Automated count 34.5 % 3 7.0 - 47.0 L [facility] Erythrocyte mean corpuscular volume [Entitic volume] b y Automated count 102.7 fL 81.0 - 101 H [facility] Erythrocyte mean corpuscular hemoglobin [Entitic mass] by Automated count 35.4 pg 27.0 - 34.0 H [facility] Erythrocyte mean corpuscular hemoglobin concentration [Mass/volume] by Automated count 34.5 g/dL 31.0 - 36.0 [facility] Erythrocyte distribution width [Ratio] by Automated count 13.6 % 11.5 - 14.5 [facility] Platelets [#/volume] in Blood by Automated count 250 10^3/uL 150 - 45 0 [facility] Platelet mean volume [Entitic volume] in Blood by Automated count 9.5 fL 7.4 - 10.4 [facility] ID Date Data Source [id number] 11/25/2020 01:36:00 [place] [address] RESPIRATORY CARE REPORT ==== ---------NAME------- NUMBER SEX AGE ADMIT DISC. XRAY# F/C CYNDY Daniels [id number] F 55 11/24/20 [id number] B1 I/P DATE OF : 1965 M/R# [id number] PH#: [phone] CCU1C LOCATION: EMERGENCY DEPT [facility] [address] COMPLE TE:11/24/20 14:41 [place] [address] PHYSICIAN: DOMENIC SAHW SILVIO Name Value Range Interpretation Code Description Data Maura rce(s) Supporting Document(s) ID Date Data Source [id number] 11/25/2020 11:38:00 AM [facility] Name Value Range Interpretation Code Description Data Maura rce(s) Supporting Document(s) C reactive protein [Mass/volume] in Serum or Plasma by High sensitivity method 100.94 MG/L 1.00 - 3.00 H [facility] CDC/S HS-CRP CUT-OFF: RELATIVE RISK: <1.0 mg/L Low 1.0 - 3.0 mg/L Average >3.0 mg/L High Optimally, the average of HS-CRP results repeated two weeks apart should be used for risk assessment. ID Date Data Source [id number] 11/25/2020 11:19:00 AM [facility] Name Value Range Interpretation Code Description Data Maura rce(s) Supporting Document(s) Ferritin [Mass/volume] in Serum or Plasma 549.5 ng/mL 3.0 - 105 H [facility] ID Date Data Source [id number] 11/25/2020 11:15:00 AM [facility] Value Range Interpretation Code Description Data Maura rce(s) Supporting Document(s) Lactate dehydrogenase [Enzymatic activity/volume] in Serum o r Plasma 221 U/L 135 - 214 H [facility] ID Date Data Source [id number] 11/25/2020 10:56:00 AM [facility] Value Range Interpretation Code Description Data Maura rce(s) Supporting Document(s) Fibrinogen [Mass/volume] in Platelet poor plasma by Co agulation assay 610.0 mg/dL 179 - 506 H [facility] ID Date Data Source [id number] 11/25/2020 09:13:00 AM [facility] Name Value Range Interpretation Code Description Data Maura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 2.00 - 6.90 [facility] Lymphocytes [#/volume] in Blood by Automated count 0.46 10^3/uL 0.60 - 3.40 L [facility] Monocytes [#/volume] in Blood by Automated count 0.74 10^3/uL 0.00 - 0.90 [facility] Eosinophils [#/volume] in Blood by Automated count 0.03 10^3/uL 0.00 - 0.70 [facility] Basophils [#/volume] in Blood by Automated count 0.01 10^3/uL 0.00 - 0.20 [facility] #IG 0.02 10^3/uL 0.00 - 0.10 [facility] #NRBC 0.00 10^3/uL 0.00 - 0.00 [facility] MANUAL DIFF NOT INDICATED [facility] RBC MORPH NOT INDICATED [facility] spital ID Date Data Source [id number] 12/02/2020 02:35:00 PM EST [facility] Name Value Range Interpretation Code Description Data Maura rce(s) Supporting Document(s) CULTURE BLOOD [facility] spital _CULTURE BLOOD_ [place] [address] CLIA# [id number] SEE SCANNED REPORT{ PRELIM ID Date Data Source [id number] 11/14/2020 02:20:00 PM EST [facility] Name Value Range Interpretation Code Description Data Maura rce(s) Supporting Document(s) SARS coronavirus 2 RNA Detected [facility] This lab was ordered by [facility] and reported by [facility]. ID Date Data Source [id number] 10/13/2020 02:52:00 PM EST [facility] [address] [place] [address] PHONE: [phone] FAX: [phone] Name .................. : JUANITO Daniels Acct Number.................. : [id number] ROOM. ................. : MR Number ................... : [id number] Stay type ............. : O/P Discharge Date......... ... : 10/12/20 Admit Date ......... : 10/12/20 Admit Phys .................... : MELANY WAJ Date of ....... : 1965 Family Phys ................... : SEQUEIRA Phone .................. : [phone] Age ................................ : 55 Film# .................. .:[id number] Sex ................................. : F Unsigned transcriptions are preliminary reports and do not represent a medical or legal document US RENAL LIMITED 04243 COMPLETE:10/12/20 09:10 KNB 23391 (PROCEDURE REASON ACUTE KIDNEY FAILURE RENAL ULTRASOUND, [...] for: MELANY TAVAREZ via fax Copy for: [address] [place] [address] REC Page 1 of 1 Name Value Range Interpretation Code Description Data Maura rce(s) Supporting Document(s) ID Date Data Source [id number] 10/02/2020 09:55:00 [place] [address] RESPIRATORY CARE REPORT ==== ---------NAME------- NUMBER SEX AGE ADMIT DISC. XRAY# F/C AUGUSTOJUSTYN Daniels [id number] F 55 09/27/20 09/28/20 [id number] O/P DATE OF : 1965 M/R# [id number] #: [id number] [id number] LOCATION: EMERGENCY DEPT [facility] [address] COMP LETE:09/28/20 02:12 [facility] [address] PHYSICIAN: KIM Fox Name Value Range Interpretation Code Description Data Maura rce(s) Supporting Document(s) ID Date Data Source [id number] 10/02/2020 10:51:00 AM EST [facility] [address] [place] [address] PHONE: [phone] FAX: [phone] Name .................. : JUANITO Daniels Acct Number.................. : [id number] ROOM. ................. : 101-1 MR Number ................... : [id number] Stay type ............. : O/P Discharge Date......... ... : Admit Date ......... : 09/27/20 Admit Phys .................... : KIM MENDEZ Date of ....... : 1965 Family Phys ................... : SEQUEIRA Phone .................. : [phone] Age ................................ : 55 Film# .................. .:[id number] Sex ................................. : F Unsigned transcriptions are preliminary reports and do not represent a medical or legal document CT HEAD(STROKE PROTOCOL) W/O 98805 COMPLETE:09/27/20 19:23 KJE 69114 Reason(s): blurry vision on and off, on [...] By Jimmy Ashby M.D. , 10/02/20 10:51, [facility] Transcribe Initials: REYES , Transcribe Date: 09/28/20 00:50, Dictation Date: Copy for: EMERGENCY DEPT via modem Copy for: 710 MED REC DISCHARGED Page 1 of 1 Name Value Range Interpretation Code Description Data Maura rce(s) Supporting Document(s) ID Date Data Source [id number] 10/02/2020 10:51:00 AM [facility] [address] [place] [address] PHONE: [phone] FAX: [phone] Name .................. : JUANITO ROMAN Jeremiah Acct Number.................. : [id number] ROOM. ................. : 101-1 MR Number ................... : [id number] Stay type ............. : O/P Discharge Date......... ... : Admit Date ......... : 09/27/20 Admit Phys .................... : KIM VANESSA Date of ....... : 1965 Family Phys ................... : SEQUEIRA Phone .................. : [phone] Age ................................ : 55 Film# .................. .:[id number] Sex ................................. : F Unsigned transcriptions are preliminary reports and do not represent a medical or legal document CHEST PORTABLE [id number] COMPLETE:09/27/20 19:23 [facility] [address] Reason(s): TIA PORTABLE CHEST X-RAY: INDICATION: TIA [...] rce(s) Supporting Document(s) ID Date Data Source [id number] 10/02/2020 10:48:00 AM [facility] [address] [place] [address] PHONE: [phone] FAX: [phone] Name .................. : JUANITO Daniels Acct Number.................. : [id number] ROOM. ................. : 101-1 MR Number ................... : [id number] Stay type ............. : O/P Discharge Date......... ... : Admit Date ......... : 09/27/20 Admit Phys .................... : KIM VANESSA Date of ....... : 1965 Family Phys ................... : Syndiant Phone .................. : [phone] Age ................................ : 55 Film# .................. .:[id number] Sex ................................. : F Unsigned transcriptions are preliminary reports and do not represent a medical or legal document CAROTID [id number] COMPLETE:09/27/20 20:58 84720 Reason(s): TIA/CVA CAROTID DOPPLER ULTRASOUND: INDICATION: TIA. [...] rce(s) Supporting Document(s) ID Date Data Source [id number] 09/28/2020 06:50:00 [place] [address] HISTORY AND PHYSICALNAME: JUANITO Daniels ROOM#: 101-1DATE OF : 1965 MR#: [id number] PHYS: Osmel Alvarez MD, PC DATE: 09/27/20CHIEF [...] pulmonary emboli 4. History of DVT 1 [place] [address] HISTORY AND PHYSICALNAME: JUANITO Daniels ROOM#: [facility]DATE OF : 1965 MR#: [id number] PHYS: Osmel Alvarez MD, DATE: 09/27/20 5. [...] Psychological: No anxiety,depression or suicidal ideation. [address] [place] [address] HISTORY AND PHYSICALNAME: JUANITO Daniels ROOM#: 101-1DATE OF : 1965 MR#: [id number] PHYS: Osmel Alvarez MD, PC DATE: 09/27/20PHYSICAL [...] rce(s) Supporting Document(s) ID Date Data Source [id number] 10/01/2020 11:14:00 [place] [address] DISCHARGE SUMMARYNAME: JUANITO Daniels ROOM#: 101-1DATE OF : 1965 MR#: [id number] PHYS: Osmel Alvarez MD, PC DATE: 09/27/20 [...] was up ambulating without difficulty and on tfe73ty, was discharged home in stable condition.DISCHARGE DIAGNOSIS:1. [...] p.r.n. shortness of breath or wheeze 1 [place] [address] DISCHARGE SUMMARYNAME: JUANITO Daniels ROOM#: 101-1DATE OF : 1965 MR#: [id number] PHYS: Osmel Alvarez MD, PC DATE: 09/27/20 [...] rce(s) Supporting Document(s) ID Date Data Source [id number] 09/28/2020 08:59:00 AM EST [facility] (Osmel Alvarez MD) Name Value Range Interpretation Code Description Data Maura rce(s) Supporting Document(s) Troponin T.cardiac [Mass/volume] in Serum or Plasma Laborato ry test result 0.00-0.10 [facility] (Osmel Alvarez MD) TROPONIN T 0.1 ng/ml Recommended as the clinical th reshold value for Troponin T. ID Date Data Source [id number] 09/28/2020 09:27:00 AM [facility] Name Value Range Interpretation Code Description Data Maura rce(s) Supporting Document(s) TROPONIN T <0.01 NG/ML 0.00 - 0.10 [facility] ospital TROPONIN T0.1 ng/ml Recommended as the c linical threshold value forTroponin T. ID Date Data Source [id number] 09/28/2020 06:30:00 AM EST [facility] (Osmel Alvarez MD) Name Value Range Interpretation Code Description Data Maura rce(s) Supporting Document(s) Magnesium [Mass/volume] in Serum or Plasma 1.5 mg/dL 1.7-2.2 [place] w low normal [facility] (Osmel Alvarez MD) ID Date Data Source [id number] 09/28/2020 06:30:00 AM EST [facility] (Osmel Alvarez [...] >32 mL/min Normal ID Date Data Source [id number] 09/28/2020 06:30:00 AM EST [facility] (Osmel Alvarez [...] fL 8 1.0-101 Above high normal [facility] (sOmel Alvarez MD) Laboratory test finding [...] (Osmel Alvarez MD) ID Date Data Source [id number] 09/28/2020 07:49:00 AM [facility] Name Value Range Interpretation Code Description Data Maura rce(s) Supporting Document(s) Magnesium [Mass/volume] in Serum or Plasma 1.5 MG/DL 1.7 - 2.2 L [facility] ID Date Data Source [id number] 09/28/2020 07:49:00 AM [facility] Name Value Range Interpretation Code Description Data Maura rce(s) Supporting Document(s) COMPREHENSIVE METABOLIC PANEL [facility] COMPREHENSIVE METABOLIC PANEL Sodium [Moles/volume] in Serum or Plasma 138 mEq/L 134 - 153 [facility] Potassium [Moles/volume] in Serum or Plasma 4.7 mEq/L 3.6 - 5.0 [facility] Chloride [Moles/volume] in Serum or Plasma 99 mEq/L 98 - 107 [facility] Carbon dioxide, total [Moles/volume] in Serum or Plasma 31 MEQ/L 22 - 30 H [facility] Glucose [Mass/volume] in Serum or Plasma 96 MG/DL 65 - 110 [facility] BUN 11 MG/DL 7 - 21 [facility] Creatinine [Mass/volume] in Serum or Plasma 1.3 MG/DL 0.7 - 1.5 [facility] BUN/CREAT 8 8 - 27 [facility] Protein [Mass/volume] in Serum or Plasma 5.8 G/DL 6.3 - 8.2 L [facility] Albumin [Mass/volume] in Serum or Plasma 3.5 G/DL 3.9 - 5.0 L [facility] Globulin [Mass/volume] in Serum by calculation 2.3 GM/DL 2.4 - 3.2 L [facility] A/G RATIO 1.5 0.8 - 2.0 [facility] Calcium [Mass/volume] in Serum or Plasma 9.1 MG/DL 8.4 - 10.2 [facility] Bilirubin.total [Mass/volume] in Serum or Plasma <0.7 MG/DL 0.2 - 1.3 [facility] Alkaline phosphatase [Enzymatic activity/volume] in Serum or Plasma 105 U/L 38 - 126 [facility] Aspartate aminotransferase [Enzymatic activity/volume] in Serum or Plasma 24 U/L 5 - 40 [facility] Alanine aminotransferase [Enzymatic activity/volume] in Seru m or Plasma 19 U/L 7 - 56 [facility] Anion gap 3 in Serum or Plasma 8.0 mmol/L 8.0 - 16.0 [facility] AGE 55 yrs [facility] al NON-AA G[facility] 45 mL[facility] A[facility] AMER GFR 55 mL/min [facility] Male GFR In [...] >32 mL/min Normal ID Date Data Source [id number] 09/28/2020 07:43:00 AM EST [facility] Name Value Range Interpretation Code Description Data Maura rce(s) Supporting Document(s) CBC W/AUTOMATED DIFF [facility] COMPLETE BLOOD COUNT Leukocytes [#/volume] in Blood by Automated count 4.8 10^3/uL 4.2 - 1 1.0 [facility] Erythrocytes [#/volume] in Blood by Automated count 2.42 10^6/uL 4. 20 - 5.40 L [facility] Hemoglobin [Mass/volume] in Blood 9.0 g/dL 12.0 - 16.0 L [facility] Hematocrit [Volume Fraction] of Blood by Automated count 28.0 % 3 7.0 - 47.0 L [facility] Erythrocyte mean corpuscular volume [Entitic volume] b y Automated count 115.7 fL 81.0 - 101 H [facility] Erythrocyte mean corpuscular hemoglobin [Entitic mass] by Automated count 37.2 pg 27.0 - 34.0 H [facility] Erythrocyte mean corpuscular hemoglobin concentration [Mass/volume] by Automated count 32.1 g/dL 31.0 - 36.0 [facility] Erythrocyte distribution width [Ratio] by Automated count 17.3 % 11.5 - 14.5 H [facility] Platelets [#/volume] in Blood by Automated count 294 10^3/uL 150 - 45 0 [facility] Platelet mean volume [Entitic volume] in Blood by Automated count 9.4 fL 7.4 - 10.4 [facility] Neutrophils/100 leukocytes in Blood by Automated count 50.0 % 37. 0 - 80.0 [facility] Lymphocytes/100 leukocytes in Blood by Manual count 14.5 % 25.0 - 40.0 L [facility] Monocytes/100 leukocytes in Blood by Automated count 29.0 % 3.0 - 8.0 H [facility] Eosinophils/100 leukocytes in Blood by Automated count 4.0 % 0.0 - 7.0 [facility] 1.7 %IG 0.8 % 0.0 - 0.0 H [facility] %NRBC 0.0 % 0.0 - 0.0 [facility] [#/volume] in Blood by Automated count 2.38 10^3/uL 2.00 - 6.90 [facility] Lymphocytes [#/volume] in Blood by Automated count 0.69 10^3/uL 0.60 - 3.40 [facility] Monocytes [#/volume] in Blood by Automated count 1.38 10^3/uL 0.00 - 0.90 H [facility] Eosinophils [#/volume] in Blood by Automated count 0.19 10^3/uL 0.00 - 0.70 [facility] Basophils [#/volume] in Blood by Automated count 0.08 10^3/uL 0.00 - 0.20 [facility] #IG 0.04 10^3/uL 0.00 - 0.10 [facility] #NRBC 0.00 10^3/uL 0.00 - 0.00 [facility] MANUAL DIFF SEE BELOW [facility] ital Segmented neutrophils/100 leukocytes in Blood by Manual count 45 % 37 - 80 [facility] BAND 0 % 0 - 5 [facility] %LYMPH 39 % 25 - 40 [facility] %MONO 10 % 3 - 8 H [facility] %EOS 5 % 0 - 7 [facility] 1 RBC MORPH NOT INDICATED [facility] ID Date Data Source [id number] 09/28/2020 02:54:00 AM EST SORIN (Osmel Alvarez MD) Name Value Range Interpretation Code Description Data Maura rce(s) Supporting Document(s) Troponin T.cardiac [Mass/volume] in Serum or Plasma Laborato ry test result 0.00-0.10 [facility]ORIN (Osmel Alvarez MD) TROPONIN T 0.1 ng/ml Recommended as the clinical th reshold value for Troponin T. ID Date Data Source [id number] 09/28/2020 03:14:00 AM [facility] Name Value Range Interpretation Code Description Data Maura rce(s) Supporting Document(s) TROPONIN T <0.01 NG/ML 0.00 - 0.10 [facility] ospital TROPONIN T0.1 ng/ml Recommended as the c linical threshold value forTroponin T. ID Date Data Source [id number] 09/27/2020 05:50:00 PM [facility] 1 OrderSheet [facility] Emergency Department [address] [place] [address] Phone #: [phone] 09/27/2020 17:38 Patient: CHANTALE SOLOMON Sex: F : 1965 Age: 55yWEIGHT:83.9 kg (S) HEIGHT:60 inches (S) BMI:36.1ALLERGIES: Penicillins, SeafoodCHIEF COMPLAINT: L eye, discomfort, L eye:, blurred visionDIAGNOSIS: Transient cerebral ischemiaLAB ORDERSOrder Description Priority Entered Acknowledged InitialedCBC w Diff STAT 18:31 09/27/2020 18:55 [facility] ED, Jesse ER M.D.; [id number] STAT 18:31 09/27/2020 18:55 [facility] ED, Jesse ER M.D.; [id number] STAT 18:31 09/27/2020 18:55 [facility] ED, Jesse ER M.D.; Cvpw5GI/INR STAT 18:31 09/27/2020 18:55 [facility] ED, Jesse ER M.D.; [id number] STAT 18:31 09/27/2020 18:55 [facility] ED, Jesse ER M.D.; [id number] STUDY ORDERSOrder Description Priority Entered Acknowledged InitialedChest Portable 1 STAT 18:31 09/27/2020 [facility] [place] [facility] TechFlorian(Oxygen?(No)) Leida; Tech1 Reason for Study: TIACT HEAD (STROKE STAT 18:31 09/27/2020 18:34 [facility] [place] [facility] TechFlorian(Oxygen?(No)) Leida; Tech1(IV?(Yes)) Reason for Study: blurry vision on and off, on xarelto, h/o malignancyUS Carotid STAT 20:58 09/27/2020 21:06 Sorbero,(Oxygen?(No)) Bel Carl[place] R.N., M.D.; Reason for Study: TIA/CVA 2 OrderSheet [facility] Emergency Department [address] [place] [address] Phone #: ext- [phone] 09/27/2020 17:38 Patient: CHANTALE SOLOMON Sex: F : 1965 Age: 55yMEDICATION/IV/DRIP/FLUID ORDERSOrder Description Priority Entered Acknowledged InitialedGENERAL ORDERSOrder Description Priority Entered Acknowledged InitialedCardiac Monitor 18:31 09/27/2020 18:56 Kody(continuous) [facility] [place] ED, Jesse ER M.D.; [id number] 18:31 09/27/2020 18:56 [facility] ED, Jesse ER M.D.; Tech1[Electronically signed by Jacquelyn Chanel R.N. (23:04 09/27/2020)][Electronically signed by Bel [place] M.D. (23:31 09/27/2020)][Electronically locked by Jacquelyn Chanel R.N. (23:04 09/27/2020)] Name Value Range Interpretation Code Description Data Maura rce(s) Supporting Document(s) ID Date Data Source [id number] 09/27/2020 05:50:00 PM [place] [address] Medication Reconciliation Report [facility] Emergency Department [address] [place] [address] Phone #: ext- [phone] 09/27/2020 17:38 Patient: CHANTALE SOLOMON Sex: F : 1965 Age: 55yWeight: 83.9 kgHeight/Length: 60 in.BMI: 36.1ALLERGIES: Penicillins, SeafoodThe patient's Home Medications are listed below:THE FOLLOWING MEDICATIONS NEED TO BE RECONCILED: Btstolic dilTIAZem HCl Oral Pantoprazole Sodium Oral [facility] Spiriva HandiHaler Inhalation Symbicort Inhalation Tylenol Oral Xarelto OralThe source(s) of the original Home Medication information:patientThe following Medications were given to the patient in the Emergency Department:None.The following Medications were prescribed to the patient:None. Name Value Range Interpretation Code Description Data Maura rce(s) Supporting Document(s) ID Date Data Source [id number] 09/27/2020 05:50:00 PM [place] [address] Medication Administration Record [facility] Emergency Department [address] [place] [address] Phone #: ext- [phone] 09/27/2020 17:38 Patient: CHANTALE SOLOMON A cct#: [id number] Sex: F : 1965 Age: 55yWeight: 83.9 kgHeight/Length: 60 inBMI: 36.1ALLERGIES: Penicillins, SeafoodDate/Time Medication Administered Medication Ordered Name Value Range Interpretation Code Description Data Maura rce(s) Supporting Document(s) ID Date Data Source [id number] 09/27/2020 05:50:00 PM [facility] 1 General Instructions [facility] Emergency Department [address] [place] [address] Phone #: ext [phone] 09/27/2020 17:38 Patient: CHANTALE SOLOMON Sex: F : 1965 Age: 55ySingle acute transient ischemic attack consistent with the amaurosis fugax syndrome.(Electronically signed by Bel [place] M.D. 09/27/2020 23:31) Name Value Range Interpretation Code Description Data Maura rce(s) Supporting Document(s) ID Date Data Source [id number] 09/27/2020 05:50:00 PM [place] [address] Clinical Report - Nurses [facility] Emergency Department [address] [place] [address] Phone #: [phone] ext [phone] 09/27/2020 17:38 Patient: CHANTALE SOLOMON [...] to , kidney function was low, hypotension).Treatment DRAMATIC READER:None.SEPSIS SCREEN: SIRS Screen negative. Sepsis Screen negative. [...] HCl Oral. Panto prazole Sodium Oral. Pharmacy [facility]. Spiriva HandiHaler Inhalation. Symbicort Inhalation. Tylenol Oral. Xarelto Oral. --18:08 09/27/20 Chata Barrera RN.AllergiesPenicillins.Seafood. --18:08 09/27/20 Chata Barrera RN.PROBLEMS:Cancer: Active. (Lung, mets to bones). --18:08 09/27/20 Chata Barrera RNIntervertebral Disc Disease. 2 Clinical Report - Nurses [facility] Emergency Department [address] [place] [address], [place] [address] Phone #: ext- [phone] 09/27/2020 17:38 Patient: CHANTALE SOLOMON Sex: F : 1965 Age: 55yPulmonary Embolism.Metabolic disease: (Bone).Chronic Back Pain.DVT - Deep Venous Thrombosis.Heart Disease.Atrial Fibrillation.Lung Cancer. --18:08 Chata Barrera RN.18:03 09/27/20. Medication/allergy information source: the patient. --18:12 09/27/20 Chata Barrera RN.ADDITIONAL SURGERIES:Appendectomy.Back Surgery (Rods in t spine, crushed t7 t8).Dilatation Curettage.Foot surgery.Heel spur.Septoplasty.Tonsillectomy.Tubal Ligation. --18:08 09/27/20 Chata Barrera RN.Qqbtcme91:03 09/27/20.PAST MEDICAL HX: Immunizations: up-to-date.SOCIAL HX: Former [...] include patient 3 Clinical Report - Nurses [facility] Emergency Department [address] [place] [address] Phone #: ext- [phone] 09/27/2020 17:38 [id number] Sex: F : 1965 Age: 55y impairment [...] risk identified. --18:12 09/27/20 Chata Barrera RN.PHYSICAL YNIWABDXRZ14:12 09/27/20. Ambulatory to room.GENERAL / NEURO / [...] shown to the ED physician. --19:08 09/27/20 [place] cattle shipperFlorian ER Tech1 19:00 09/27/20. BP: 111/70. MAP: 83. HR: 82. RR: 17. O2 saturation: 100%. --19:45 09/27/20 [facility] TechHarshilFlorian, ER Tech1 19:30 09/27/20. BP: 112/68. MAP: 82. HR: 72. RR: 15. O2 saturation: 100%. --19:46 09/27/20 [place] cattle shipper, Florian, ER Tech1 18:30 09/27/2020 Site #1 [...] Patient transported to radiology by wheelchair with debug technician. --18:40 09/27/20 Lynette Harris 20:00 09/27/20. Reassurance [...] Youngblood R.N. 4 Clinical Report - Nurses [facility] Emergency Department [address] [place] [address] Phone #: ext- [phone] 09/27/2020 17:38 Patient: [...] Report was acknowledged and care was transferred. (sivlio). Bed obtained and ready (101). ( relayed to Silvio RN that CT r/o intracranial bleed was negative and will send her copy of report). --22:14 09/27/20 James Youngblood R.N. 5 Clinical Report - Nurses [facility] Emergency Department [address] [place] [address] Phone #: ext- [phone] 09/27/2020 17:38 Patient: [...] rce(s) Supporting Document(s) ID Date Data Source [id number] 09/27/2020 05:50:00 PM [facility] 1 Clinical Report - Physicians/Mid Levels [facility] Emergency Department [address] [place] [address] Phone #: ext- [phone] 09/27/2020 17:38 Patient: [...] Thrombosis. 2 Clinical Report - Physicians/Mid Levels [facility] Emergency Department [address] [place] [address] Phone #: ext- [phone] 09/27/2020 17:38 Patient: CHANTALE SOLOMON Sex: F : 1965 Age: 55y Heart Disease. Atrial Fibrillation. Lung Cancer. Additional Surgeries: Appendectomy. Back Surgery. Dilatation Curettage. Foot surgery. Heel spur. Right heel spur. Septoplasty. Septoplasty. Tonsillectomy. Tubal Ligation. Medications: Btstolic. dilTIAZem HCl Oral. Pantoprazole Sodium Oral. Pharmacy [facility]. Spiriva HandiHaler Inhalation. Symbicort Inhalation. Tylenol Oral. Xarelto Oral. Allergies: Penicillins. Seafood.SOCIAL HISTORYFormer smoker. Alcohol use; consumes one glass of wine. No drug use. No recent travel. Resides [place]. She lives with spouse.ADDITIONAL NOTESThe nursing notes [...] deficit. 3 Clinical Report - Physicians/Mid Levels [facility] Emergency Department [address] [place] [address] Phone #: ext- [phone] 09/27/2020 17:38 Patient: CHANTALE SOLOMON Sex: F : 1965 Age: 55y Visual patterson normal. Left visual field deficit temporally and superiorly (? resolved . per jpbr2mu left upper quadrant blurriness , now ewresolved). [...] 7.0) 4 Clinical Report - Physicians/Mid Levels [facility] Emergency Department [address] [place] [address] Phone #: ext- [phone] 09/27/2020 17:38 [id number] Sex: F : 1965 Age: 55y BASO [...] Male GFR Interprentation 20-49 yrs >60 mL/min Qufamm90-43 yrs >56 mL/min Normal 60-69 yrs >49 mL/min Normal 70-79yrs>42 mL/min Normal 80 and above >35 mL/min Normal Female GFRInterpretation 20-39 yrs >60 mL/min Normal 40-49 yrs >58 mL/minNormal 50-59 yrs >51 mL/min Normal 60-69 yrs >45 mL/min Cbbqqw71-55 yrs >39 mL/min Normal 80 and above >32 mL/min NormalMagnesium: (SARAH: 09/27/2020 18:55) ( [facility] 09/27/2020 19:32) Final results Test Result Flag Units (Reference) MAGNESIUM 1.2 L MG/DL (1.7 - 2.2)PT/INR: (SARAH: 09/27/2020 18:55) ( [facility] 09/27/2020 19:10) Final results Test Result Flag Units (Reference) PROTIME 19.8 H SECONDS (11.0 - 15.5) INR 1.60 H (0.93 - 1.23) \\BLDo\\INR INTERPRETATION\\BLDx\\ Therapeutic range for Coumadin and 5 Clinical Report - Physicians/Mid Levels [facility] Emergency Department [address] [place] [address] Phone #: ext- [phone] 09/27/2020 17:38 [id number] Sex: F : 1965 Age: 55y related oral anticoagulants. -International Normalized Ratio (INR): 2.0 - 3.0 for Venous Thrombosis, Pulmonary Embolus, Tissue heart valves, Acute MN, Atrial Fibrillation, Valvular heart disease and recurrent Systemic Embolism. -International Normalized Ratio (INR): 2.5 - 3.5 for Mechanical Prosthetic valve. Troponin-T: (SARAH: 09/27/2020 18:55) ( MsgRcvd 09/27/2020 19:32) Final results Test Result Flag Units (Reference) TROPONIN T <0.01 NG/ML (0.00 - 0.10) TROPONIN T0.1 ng/ml Recommended as the clinical threshold value forTroponin T. Chest Portable 1 View: (SARAH: 09/27/2020 18:31) ( [facility] 09/27/2020 19:23) In Progress CHEST PORTABLE Reason(s): TIA TRANSPORTATION: WC IV? O2? Oxygen?(No) Room: ED CT HEAD(STROKE PROTOCOL) W/O CONTRAST: (SARAH: 09/27/2020 18:31) ( [facility] 09/27/2020 19:23) In Progress CT HEAD(STROKE PROTOCOL) [...] ordered. 6 Clinical Report - Physicians/Mid Levels [facility] Emergency Department [address] [place] [address] Phone #: ext- [phone] 09/27/2020 17:38 Patient: [...] rce(s) Supporting Document(s) ID Date Data Source [id number] 09/27/2020 05:50:00 PM EST [facility] Addenda for CHANTALE SOLOMON VisitID: [id number] Date: 21:01Medication reconciliation request faxed to [facility].(Electronically signed by Benjamín Shore - 09/27/2020 21:01) Name Value Range Interpretation Code Description Data Maura rce(s) Supporting Document(s) ID Date Data Source [id number] 09/27/2020 07:32:00 PM [facility] Name Value Range Interpretation Code Description Data Maura rce(s) Supporting Document(s) TROPONIN T <0.01 NG/ML 0.00 - 0.10 [facility] ospital TROPONIN T0.1 ng/ml Recommended as the c linical threshold value forTroponin T. ID Date Data Source [id number] 09/27/2020 07:32:00 PM [facility] Name Value Range Interpretation Code Description Data Maura rce(s) Supporting Document(s) Magnesium [Mass/volume] in Serum or Plasma 1.2 MG/DL 1.7 - 2.2 L [facility] ID Date Data Source [id number] 09/27/2020 07:31:00 PM [facility] Name Value Range Interpretation Code Description Data Maura rce(s) Supporting Document(s) COMPREHENSIVE METABOLIC PANEL [facility] COMPREHENSIVE METABOLIC PANEL Sodium [Moles/volume] in Serum or Plasma 136 mEq/L 134 - 153 [facility] Potassium [Moles/volume] in Serum or Plasma 4.2 mEq/L 3.6 - 5.0 [facility] Chloride [Moles/volume] in Serum or Plasma 95 mEq/L 98 - 107 L [facility] Carbon dioxide, total [Moles/volume] in Serum or Plasma 32 MEQ/L 22 - 30 H [facility] Glucose [Mass/volume] in Serum or Plasma 90 MG/DL 65 - 110 [facility] BUN 13 MG/DL 7 - 21 [facility] Creatinine [Mass/volume] in Serum or Plasma 1.4 MG/DL 0.7 - 1.5 [facility] BUN/CREAT 9 8 - 27 [facility] Protein [Mass/volume] in Serum or Plasma 7.2 G/DL 6.3 - 8.2 [facility] Albumin [Mass/volume] in Serum or Plasma 3.8 G/DL 3.9 - 5.0 L [facility] Globulin [Mass/volume] in Serum by calculation 3.4 GM/DL 2.4 - 3.2 H [facility] A/G RATIO 1.1 0.8 - 2.0 [facility] Calcium [Mass/volume] in Serum or Plasma 9.4 MG/DL 8.4 - 10.2 [facility] Bilirubin.total [Mass/volume] in Serum or Plasma <0.7 MG/DL 0.2 - 1.3 [facility] Alkaline phosphatase [Enzymatic activity/volume] in Serum or Plasma 114 U/L 38 - 126 [facility] Aspartate aminotransferase [Enzymatic activity/volume] in Serum or Plasma 28 U/L 5 - 40 [facility] Alanine aminotransferase [Enzymatic activity/volume] in Seru m or Plasma 23 U/L 7 - 56 [facility] Anion gap 3 in Serum or Plasma 9.0 mmol/L 8.0 - 16.0 [facility] AGE 55 yrs [facility] al NON-AA GFR 41 mL/min [facility] AFR AMER GFR 50 mL/min [facility] Male GFR In [...] >32 mL/min Normal ID Date Data Source [id number] 09/27/2020 07:22:00 PM EST [facility] Name Value Range Interpretation Code Description Data Maura rce(s) Supporting Document(s) CBC W/AUTOMATED DIFF [facility] COMPLETE BLOOD COUNT Leukocytes [#/volume] in Blood by Automated count 7.0 10^3/uL 4.2 - 1 1.0 [facility] Erythrocytes [#/volume] in Blood by Automated count 2.56 10^6/uL 4. 20 - 5.40 L [facility] Hemoglobin [Mass/volume] in Blood 9.5 g/dL 12.0 - 16.0 L [facility] Hematocrit [Volume Fraction] of Blood by Automated count 29.8 % 3 7.0 - 47.0 L [facility] Erythrocyte mean corpuscular volume [Entitic volume] b y Automated count 116.4 fL 81.0 - 101 H [facility] Erythrocyte mean corpuscular hemoglobin [Entitic mass] by Automated count 37.1 pg 27.0 - 34.0 H [facility] Erythrocyte mean corpuscular hemoglobin concentration [Mass/volume] by Automated count 31.9 g/dL 31.0 - 36.0 [facility] Erythrocyte distribution width [Ratio] by Automated count 17.5 % 11.5 - 14.5 H [facility] Platelets [#/volume] in Blood by Automated count 295 10^3/uL 150 - 45 0 [facility] Platelet mean volume [Entitic volume] in Blood by Automated count 9.0 fL 7.4 - 10.4 [facility] Neutrophils/100 leukocytes in Blood by Automated count 48.3 % 37. 0 - 80.0 [facility] Lymphocytes/100 leukocytes in Blood by Manual count 24.0 % 25.0 - 40.0 L [facility] Monocytes/100 leukocytes in Blood by Automated count 22.9 % 3.0 - 8.0 H [facility] Eosinophils/100 leukocytes in Blood by Automated count 3.0 % 0.0 - 7.0 [facility] Basophils/100 leukocytes in Blood by Automated count 0.9 % 0.0 - 2.5 [facility] %IG 0.9 % 0.0 - 0.0 H [facility] al %NRBC 0.0 % 0.0 - 0.0 [facility] al Neutrophils [#/volume] in Blood by Automated count 3.38 10^3/uL 2.00 - 6.90 [facility] Lymphocytes [#/volume] in Blood by Automated count 1.68 10^3/uL 0.60 - 3.40 [facility] Monocytes [#/volume] in Blood by Automated count 1.60 10^3/uL 0.00 - 0.90 H [facility] Eosinophils [#/volume] in Blood by Automated count 0.21 10^3/uL 0.00 - 0.70 [facility] Basophils [#/volume] in Blood by Automated count 0.06 10^3/uL 0.00 - 0.20 [facility] #IG 0.06 10^3/uL 0.00 - 0.10 [facility] #NRBC 0.00 10^3/uL 0.00 - 0.00 [facility] ospital MANUAL DIFF SEE BELOW [facility] ital Segmented neutrophils/100 leukocytes in Blood by Manual count 61 % 37 - 80 [facility] %LYMPH 24 % 25 - 40 L [facility] al %MONO 15 % 3 - 8 H [facility] al RBC MORPH NOT INDICATED [facility] ID Date Data Source [id number] 09/27/2020 07:10:00 PM EST [facility] Name Value Range Interpretation Code Description Data Maura rce(s) Supporting Document(s) Prothrombin time (PT) 19.8 SECONDS 11.0 - 15.5 H [facility] INR in Platelet poor plasma by Coagulation assay 1.60 0.93 - 1. 23 H [facility] \\BLDo\\INR INTERPRETATION\\BLDx\\ Therapeutic range for Coumadin and related oral anticoagulants. - International Normalized Ratio (INR): 2.0 - 3.0 for Venous Thrombosis, Pulmonary Embolus, Tissue heart valves, Acute MN, Atrial Fibrillation, Valvular heart disease and recurrent Systemic Embolism. -International Normalized Ratio (INR): 2.5 - 3.5 for Mechanical Prosthetic valve. ID Date Data Source [id number] 09/05/2020 03:26:00 PM [facility] Name Value Range Interpretation Code Description Data Maura rce(s) Supporting Document(s) COMPREHENSIVE METABOLIC PANEL [facility] COMPREHENSIVE METABOLIC PANEL Sodium [Moles/volume] in Serum or Plasma 138 mEq/L 134 - 153 [facility] Potassium [Moles/volume] in Serum or Plasma 5.0 mEq/L 3.6 - 5.0 [facility] Chloride [Moles/volume] in Serum or Plasma 100 mEq/L 98 - 107 [facility] Carbon dioxide, total [Moles/volume] in Serum or Plasma 27 MEQ/L 22 - 30 [facility] Glucose [Mass/volume] in Serum or Plasma 104 MG/DL 65 - 110 [facility] BUN 14 MG/DL 7 - 21 [facility] al Creatinine [Mass/volume] in Serum or Plasma 1.3 MG/DL 0.7 - 1.5 [facility] BUN/CREAT 11 8 - 27 [facility] Protein [Mass/volume] in Serum or Plasma 6.7 G/DL 6.3 - 8.2 [facility] Albumin [Mass/volume] in Serum or Plasma 3.7 G/DL 3.9 - 5.0 L [facility] Globulin [Mass/volume] in Serum by calculation 3.0 GM/DL 2.4 - 3.2 [facility] A/G RATIO 1.2 0.8 - 2.0 [facility] Calcium [Mass/volume] in Serum or Plasma 9.4 MG/DL 8.4 - 10.2 [facility] Bilirubin.total [Mass/volume] in Serum or Plasma <0.7 MG/DL 0.2 - 1.3 [facility] Alkaline phosphatase [Enzymatic activity/volume] in Serum or Plasma 106 U/L 38 - 126 [facility] Aspartate aminotransferase [Enzymatic activity/volume] in Serum or Plasma 25 U/L 5 - 40 [facility] Alanine aminotransferase [Enzymatic activity/volume] in Seru m or Plasma 14 U/L 7 - 56 [facility] Anion gap 3 in Serum or Plasma 11.0 mmol/L 8.0 - 16.0 [facility] AGE 55 yrs [facility] NON-AA GFR 45 mL/min [facility] AFR AMER GFR 55 mL/min [facility] Male GFR In [...] >32 mL/min Normal ID Date Data Source [id number] 08/29/2020 10:44:00 AM EDT [facility] Name Value Range Interpretation Code Description Data Maura rce(s) Supporting Document(s) COMPREHENSIVE METABOLIC PANEL [facility] COMPREHENSIVE METABOLIC PANEL Sodium [Moles/volume] in Serum or Plasma 137 mEq/L 134 - 153 [facility] Potassium [Moles/volume] in Serum or Plasma 4.3 mEq/L 3.6 - 5.0 [facility] Chloride [Moles/volume] in Serum or Plasma 97 mEq/L 98 - 107 L [facility] Carbon dioxide, total [Moles/volume] in Serum or Plasma 31 MEQ/L 22 - 30 H [facility] Glucose [Mass/volume] in Serum or Plasma 122 MG/DL 65 - 110 H [facility] BUN 16 MG/DL 7 - 21 [facility] al Creatinine [Mass/volume] in Serum or Plasma 1.5 MG/DL 0.7 - 1.5 [facility] BUN/CREAT 11 8 - 27 [facility] Protein [Mass/volume] in Serum or Plasma 6.7 G/DL 6.3 - 8.2 [facility] Albumin [Mass/volume] in Serum or Plasma 3.6 G/DL 3.9 - 5.0 L [facility] Globulin [Mass/volume] in Serum by calculation 3.1 GM/DL 2.4 - 3.2 [facility] A/G RATIO 1.2 0.8 - 2.0 [facility] Calcium [Mass/volume] in Serum or Plasma 8.5 MG/DL 8.4 - 10.2 [facility] Bilirubin.total [Mass/volume] in Serum or Plasma <0.7 MG/DL 0.2 - 1.3 [facility] Alkaline phosphatase [Enzymatic activity/volume] in Serum or Plasma 108 U/L 38 - 126 [facility] Aspartate aminotransferase [Enzymatic activity/volume] in Serum or Plasma 29 U/L 5 - 40 [facility] Alanine aminotransferase [Enzymatic activity/volume] in Seru m or Plasma 14 U/L 7 - 56 [facility] Anion gap 3 in Serum or Plasma 9.0 mmol/L 8.0 - 16.0 [facility] AGE 55 yrs [facility] NON-AA GFR 38 mL/min [facility] AFR AMER GFR 46 mL/min [facility] Male GFR In [...] >32 mL/min Normal ID Date Data Source [id number] 08/29/2020 10:37:00 AM EDT [facility] Name Value Range Interpretation Code Description Data Maura rce(s) Supporting Document(s) CBC W/AUTOMATED DIFF [facility] COMPLETE BLOOD COUNT Leukocytes [#/volume] in Blood by Automated count 8.8 10^3/uL 4.2 - 1 1.0 [facility] Erythrocytes [#/volume] in Blood by Automated count 2.97 10^6/uL 4. 20 - 5.40 L [facility] Hemoglobin [Mass/volume] in Blood 11.0 g/dL 12.0 - 16.0 L [facility] Hematocrit [Volume Fraction] of Blood by Automated count 33.4 % 3 7.0 - 47.0 L [facility] Erythrocyte mean corpuscular volume [Entitic volume] b y Automated count 112.5 fL 81.0 - 101 H [facility] Erythrocyte mean corpuscular hemoglobin [Entitic mass] by Automated count 37.0 pg 27.0 - 34.0 H [facility] Erythrocyte mean corpuscular hemoglobin concentration [Mass/volume] by Automated count 32.9 g/dL 31.0 - 36.0 [facility] Erythrocyte distribution width [Ratio] by Automated count 14.5 % 11.5 - 14.5 [facility] Platelets [#/volume] in Blood by Automated count 347 10^3/uL 150 - 45 0 [facility] Platelet mean volume [Entitic volume] in Blood by Automated count 9.1 fL 7.4 - 10.4 [facility] Neutrophils/100 leukocytes in Blood by Automated count 65.2 % 37. 0 - 80.0 [facility] Lymphocytes/100 leukocytes in Blood by Manual count 11.5 % 25.0 - 40.0 L [facility] Monocytes/100 leukocytes in Blood by Automated count 18.4 % 3.0 - 8.0 H [facility] Eosinophils/100 leukocytes in Blood by Automated count 3.2 % 0.0 - 7.0 [facility] Basophils/100 leukocytes in Blood by Automated count 1.0 % 0.0 - 2.5 [facility] %IG 0.7 % 0.0 - 0.0 H [facility] %NRBC 0.0 % 0.0 - 0.0 [facility] Neutrophils [#/volume] in Blood by Automated count 5.76 10^3/uL 2.00 - 6.90 [facility] Lymphocytes [#/volume] in Blood by Automated count 1.02 10^3/uL 0.60 - 3.40 [facility] Monocytes [#/volume] in Blood by Automated count 1.63 10^3/uL 0.00 - 0.90 H [facility] Eosinophils [#/volume] in Blood by Automated count 0.28 10^3/uL 0.00 - 0.70 [facility] Basophils [#/volume] in Blood by Automated count 0.09 10^3/uL 0.00 - 0.20 [facility] #IG 0.06 10^3/uL 0.00 - 0.10 [facility] #NRBC 0.00 10^3/uL 0.00 - 0.00 [facility] ospital MANUAL DIFF SEE BELOW [facility] ital Segmented neutrophils/100 leukocytes in Blood by Manual count 74 % 37 - 80 [facility] BAND 1 % 0 - 5 [facility] al %LYMPH 12 % 25 - 40 L [facility] al %MONO 12 % 3 - 8 H [facility] %EOS 1 % 0 - 7 [facility] RBC MORPH MORPH IS NORMAL [facility] ID Date Data Source [id number] 08/07/2020 11:19:00 [place] [address] HISTORY AND PHYSICALNAME: JUANITO Daniels ROOM#: [id number] OF : 1965 MR#: [id number] PHYS: Osmel Alvarez MD, [facility] [id number] DATE: 08/05/20CHIEF COMPLAINT: This is a 55-year-old [...] [facility]. She has known history ofappendectomy, back surgery [...] Mother is alive and has COPD. [address] [place] [address] HISTORY AND PHYSICALNAME: JUANITO Daniels ROOM#: [id number] OF : 1965 MR#: [id number] PHYS: Osmel Alvarez MD, PC DATE: 08/05/20PHYSICAL EXAMINATION:GENERAL: Moderately-built.VITAL SIGNS: Blood pressure is 134/97. Heart rate was 160. Temperature 98. Respirations 18-24. [id number] is 100% on 2 liters of oxygen.HEENT: [...] rce(s) Supporting Document(s) ID Date Data Source [id number] 08/07/2020 11:17:00 [place] [address] DISCHARGE SUMMARYNAME: JUANITO Daniels ROOM#: [id number] OF : 1965 MR#: [id number] PHYS: Osmel Alvarez MD, PC DATE: 08/05/20 [...] daily.11. Symbicort 160/4.5 mcg bid.DISCHARGE PLAN: [address] [place] [address] DISCHARGE SUMMARYNAME: JUANITO Daniels ROOM#: [id number] OF : 1965 MR#: [id number] PHYS: Osmel Alvarez MD, DATE: 08/05/20 DISCHARGED:Follow up one week in [...] platelets are very low.DD: Osmel Alvarez MD, 08/07/20 09:35DT: SSR 08/07/20 11:17DS: Osmel Alvarez MD, PC 08/23/20 09:35 2 Name Value Range Interpretation Code Description Data Maura rce(s) Supporting Document(s) ID Date Data Source [id number] 08/15/2020 10:43:00 AM EDT [facility] (Osmel Alvarez [...] MD) {A1] {HB] ID Date Data Source [id number] 08/15/2020 10:43:00 AM EDT [facility] (Osmel Alvarez [...] >32 mL/min Normal ID Date Data Source [id number] 08/15/2020 10:43:00 AM EDT [facility] (Osmel Alvarez MD) Name Value Range Interpretation Code Description Data Maura rce(s) Supporting Document(s) Magnesium [Mass/volume] in Serum or Plasma 1.1 mg/dL 1.7-2.2 Belo w low normal [facility] (Osmel Alvarez MD) Iron [Mass/volume] in Serum or Plasma 28 ug/dL 42-135 Below low normal [facility] (Osmel Alvarez MD) ID Date Data Source [id number] 08/15/2020 10:43:00 AM EDT [facility] (Osmel Alvarez [...] finding (navigational concept) 0 % 0-2 [facility] (Omsel Alvarez MD) Laboratory test finding (navigational concept) Laboratory test result [facility] (Osmel Alvarez MD) ID Date Data Source [id number] 08/15/2020 11:37:00 AM EDT [facility] Name Value Range Interpretation Code Description Data Maura rce(s) Supporting Document(s) Hemoglobin A1c/Hemoglobin.total in Blood 5.2 % 4.4 - 6.1 [facility] {A1]{HB] ID Date Data Source [id number] 08/15/2020 11:37:00 AM EDT [facility] Name Value Range Interpretation Code Description Data Maura rce(s) Supporting Document(s) BNP 1005 PG/ML 0 - 125 [facility] ID Date Data Source [id number] 08/15/2020 11:08:00 AM EDT [facility] Name Value Range Interpretation Code Description Data Maura rce(s) Supporting Document(s) Fibrin D-dimer FEU [Mass/volume] in Platelet poor plasma 1.41 ug /mL 0.27 - 0.50 H [facility] ID Date Data Source [id number] 08/15/2020 11:37:00 AM EDT [facility] Name Value Range Interpretation Code Description Data Maura rce(s) Supporting Document(s) COMPREHENSIVE METABOLIC PANEL [facility] COMPREHENSIVE METABOLIC PANEL Sodium [Moles/volume] in Serum or Plasma 137 mEq/L 134 - 153 [facility] Potassium [Moles/volume] in Serum or Plasma 3.5 mEq/L 3.6 - 5.0 L [facility] Chloride [Moles/volume] in Serum or Plasma 95 mEq/L 98 - 107 L [facility] Carbon dioxide, total [Moles/volume] in Serum or Plasma 27 MEQ/L 22 - 30 [facility] Glucose [Mass/volume] in Serum or Plasma 105 MG/DL 65 - 110 [facility] BUN 9 MG/DL 7 - 21 [facility] Creatinine [Mass/volume] in Serum or Plasma 1.3 MG/DL 0.7 - 1.5 [facility] BUN/CREAT 7 8 - 27 L [facility] Protein [Mass/volume] in Serum or Plasma 7.1 G/DL 6.3 - 8.2 [facility] Albumin [Mass/volume] in Serum or Plasma 3.9 G/DL 3.9 - 5.0 [facility] Globulin [Mass/volume] in Serum by calculation 3.2 GM/DL 2.4 - 3.2 [facility] A/G RATIO 1.2 0.8 - 2.0 [facility] Alkaline phosphatase [Enzymatic activity/volume] in Serum or Plasma 113 U/L 38 - 126 [facility] Aspartate aminotransferase [Enzymatic activity/volume] in Serum or Plasma 24 U/L 5 - 40 [facility] Alanine aminotransferase [Enzymatic activity/volume] in Seru m or Plasma 12 U/L 7 - 56 [facility] Anion gap 3 in Serum or Plasma 15.0 mmol/L 8.0 - 16.0 [facility] AGE 55 yrs [facility] NON-AA GFR 45 mL/min [facility] AFR AMER GFR 55 mL/min [facility] Male GFR In [...] >32 mL/min Normal ID Date Data Source [id number] 08/15/2020 11:37:00 AM EDT [facility] Name Value Range Interpretation Code Description Data Maura rce(s) Supporting Document(s) Iron [Mass/volume] in Serum or Plasma 28 UG/DL 42 - 135 L [facility] ID Date Data Source [id number] 08/15/2020 11:51:[address] [facility] Name Value Range Interpretation Code Description Data Maura rce(s) Supporting Document(s) Magnesium [Mass/volume] in Serum or Plasma 1.1 MG/DL 1.7 - 2.2 L [facility] ID Date Data Source [id number] 08/15/2020 11:40:[address] [facility] Name Value Range Interpretation Code Description Data Maura rce(s) Supporting Document(s) CBC W/AUTOMATED DIFF [facility] COMPLETE BLOOD COUNT Leukocytes [#/volume] in Blood by Automated count 9.7 10^3/uL 4.2 - 1 1.0 [facility] Erythrocytes [#/volume] in Blood by Automated count 2.91 10^6/uL 4. 20 - 5.40 L [facility] Hemoglobin [Mass/volume] in Blood 10.8 g/dL 12.0 - 16.0 L [facility] Hematocrit [Volume Fraction] of Blood by Automated count 32.5 % 3 7.0 - 47.0 L [facility] Erythrocyte mean corpuscular volume [Entitic volume] b y Automated count 111.7 fL 81.0 - 101 H [facility] Erythrocyte mean corpuscular hemoglobin [Entitic mass] by Automated count 37.1 pg 27.0 - 34.0 H [facility] Erythrocyte mean corpuscular hemoglobin concentration [Mass/volume] by Automated count 33.2 g/dL 31.0 - 36.0 [facility] Erythrocyte distribution width [Ratio] by Automated count 15.1 % 11.5 - 14.5 H [facility] Platelets [#/volume] in Blood by Automated count 335 10^3/uL 150 - 45 0 [facility] Platelet mean volume [Entitic volume] in Blood by Automated count 9.5 fL 7.4 - 10.4 [facility] Neutrophils/100 leukocytes in Blood by Automated count 60.8 % 37. 0 - 80.0 [facility] Lymphocytes/100 leukocytes in Blood by Manual count 7.4 % 25.0 - 40.0 L [facility] Monocytes/100 leukocytes in Blood by Automated count 27.0 % 3.0 - 8.0 H [facility] Eosinophils/100 leukocytes in Blood by Automated count 2.7 % 0.0 - 7.0 [facility] 1.0 %IG 1.1 % 0.0 - 0.0 H [facility] al %NRBC 0.0 % 0.0 - 0.0 [facility] al Neutrophils [#/volume] in Blood by Automated count 5.87 10^3/uL 2.00 - 6.90 [facility] Lymphocytes [#/volume] in Blood by Automated count 0.72 10^3/uL 0.60 - 3.40 [facility] Monocytes [#/volume] in Blood by Automated count 2.61 10^3/uL 0.00 - 0.90 H [facility] Eosinophils [#/volume] in Blood by Automated count 0.26 10^3/uL 0.00 - 0.70 [facility] Basophils [#/volume] in Blood by Automated count 0.10 10^3/uL 0.00 - 0.20 [facility] #IG 0.11 10^3/uL 0.00 - 0.10 H [facility] #NRBC 0.00 10^3/uL 0.00 - 0.00 [facility] MANUAL DIFF SEE BELOW [facility] Segmented neutrophils/100 leukocytes in Blood by Manual count 67 % 37 - 80 [facility] BAND 0 % 0 - 5 [facility] al %LYMPH 12 % 25 - 40 L [facility] al %MONO 18 % 3 - 8 H [facility] %EOS 3 % 0 - 7 [facility] 0 RBC MORPH NOT INDICATED [facility] ID Date Data Source [id number] 08/07/2020 12:34:00 PM EDT [facility] [address] [place] [address] PHONE: [phone] FAX: [phone] Name .................. : JUANITO ROMAN Jeremiah Acct Number.................. : [id number] ROOM. ................. : CCU3 Number ................... : [id number] Stay type ............. : I/P Discharge Date......... ... : Admit Date ......... : 08/05/20 Admit Phys .................... : KIM VANESSA Date of ....... : 1965 Family Phys ................... : REGINE GAIL Phone .................. : [phone] Age ................................ : 55 Film# .................. .:[id number] Sex ................................. : F Unsigned transcriptions are preliminary reports and do not represent a medical or legal document CHEST PORTABLE [id number] COMPLETE:08/05/20 22:29 RLB [id number] Reason(s): Chest Pain PORTABLE CHEST X-RAY: COMPARISON: [...] 08/05/20 22:54, Dictation Date: Copy for: [facility] REC DISCHARGED Page 1 of 1 Name Value Range Interpretation Code Description Data Maura rce(s) Supporting Document(s) ID Date Data Source [id number] 08/07/2020 08:52:00 AM EDT [facility] [address] [place] [address] RESPIRATORY CARE REPORT ==== ---------NAME------- NUMBER SEX AGE ADMIT DISC. XRAY# F/C CYNDY Daniels [id number] F [id number] 08/05/20 220915 B1 I/P DATE OF : 1965 M/R# [id number] #: [id number] CCU3 LOCATION: EMERGENCY DEPT EKG 17612 COMPL ETE:08/07/20 07:21 [facility] [address] PHYSICIAN: KIM MENDEZ Name Value Range Interpretation Code Description Data Maura rce(s) Supporting Document(s) ID Date Data Source [id number] 08/06/2020 11:11:00 [place] [address] PROGRESS NOTENAME: JUANITO Daniels ROOM#: [id number] OF : 1965 MR#: [id number] DATE: 08/05/20 OF SERVICE: 08/06/20UBJECTIVE: This patient [...] Name Value Range Interpretation Code Description Data [facility] rce(s) Supporting Document(s) ID Date Data Source [id number] 08/07/2020 06:55:00 AM EDT [facility] Name Value Range Interpretation Code Description Data [facility] rce(s) Supporting Document(s) CBC W/AUTOMATED DIFF [facility] COMPLETE BLOOD COUNT Leukocytes [#/volume] in Blood by Automated count 3.0 10^3/uL 4.2 - 1 1.0 L [facility] Erythrocytes [#/volume] in Blood by Automated count 2.38 10^6/uL 4. 20 - 5.40 L [facility] Hemoglobin [Mass/volume] in Blood 9.1 g/dL 12.0 - 16.0 L [facility] Hematocrit [Volume Fraction] of Blood by Automated count 25.9 % 3 7.0 - 47.0 L [facility] Erythrocyte mean corpuscular volume [Entitic volume] b y Automated count 108.8 fL 81.0 - 101 H [facility] Erythrocyte mean corpuscular hemoglobin [Entitic mass] by Automated count 38.2 pg 27.0 - 34.0 H [facility] Erythrocyte mean corpuscular hemoglobin concentration [Mass/volume] by Automated count 35.1 g/dL 31.0 - 36.0 [facility] Erythrocyte distribution width [Ratio] by Automated count 13.6 % 11.5 - 14.5 [facility] Platelets [#/volume] in Blood by Automated count 49 10^3/uL 150 - 450 L [facility] Platelet mean volume [Entitic volume] in Blood by Automated count 9.9 fL 7.4 - 10.4 [facility] Neutrophils/100 leukocytes in Blood by Automated count 50.0 % 37. 0 - 80.0 [facility] Lymphocytes/100 leukocytes in Blood by Manual count 11.7 % 25.0 - 40.0 L [facility] Monocytes/100 leukocytes in Blood by Automated count 31.7 % 3.0 - 8.0 H [facility] Eosinophils/100 leukocytes in Blood by Automated count 6.0 % 0.0 - 7.0 [facility] 0.3 %IG 0.3 % 0.0 - 0.0 [facility] %NRBC 0.0 % 0.0 - 0.0 [facility] Neutrophils [#/volume] in Blood by Automated count 1.50 10^3/uL 2.00 - 6.90 L [facility] Lymphocytes [#/volume] in Blood by Automated count 0.35 10^3/uL 0.60 - 3.40 L [facility] Monocytes [#/volume] in Blood by Automated count 0.95 10^3/uL 0.00 - 0.90 H [facility] Eosinophils [#/volume] in Blood by Automated count 0.18 10^3/uL 0.00 - 0.70 [facility] Basophils [#/volume] in Blood by Automated count 0.01 10^3/uL 0.00 - 0.20 [facility] #IG 0.01 10^3/uL 0.00 - 0.10 [facility] #NRBC 0.00 10^3/uL 0.00 - 0.00 [facility] MANUAL DIFF SEE BELOW [facility] Segmented neutrophils/100 leukocytes in Blood by Manual count 54 % 37 - 80 [facility] BAND 0 % 0 - 5 [facility] %LYMPH 16 % 25 - 40 L [facility] %MONO 25 % 3 - 8 H [facility] %EOS 5 % 0 - 7 [facility] 0 RBC MORPH NOT INDICATED [facility] ID Date Data Source [id number] 08/07/2020 06:54:00 AM EDT [facility] Name Value Range Interpretation Code Description Data Maura rce(s) Supporting Document(s) Magnesium [Mass/volume] in Serum or Plasma 1.5 MG/DL 1.7 - 2.2 L [facility] ID Date Data Source [id number] 08/07/2020 06:54:00 AM EDT [facility] Name Value Range Interpretation Code Description Data Maura rce(s) Supporting Document(s) COMPREHENSIVE METABOLIC PANEL [facility] COMPREHENSIVE METABOLIC PANEL Sodium [Moles/volume] in Serum or Plasma 135 mEq/L 134 - 153 [facility] Potassium [Moles/volume] in Serum or Plasma 3.8 mEq/L 3.6 - 5.0 [facility] Chloride [Moles/volume] in Serum or Plasma 97 mEq/L 98 - 107 L [facility] Carbon dioxide, total [Moles/volume] in Serum or Plasma 29 MEQ/L 22 - 30 [facility] Glucose [Mass/volume] in Serum or Plasma 112 MG/DL 65 - 110 H [facility] BUN 10 MG/DL 7 - 21 [facility] Creatinine [Mass/volume] in Serum or Plasma 1.2 MG/DL 0.7 - 1.5 [facility] BUN/CREAT 8 8 - 27 [facility] Protein [Mass/volume] in Serum or Plasma 5.9 G/DL 6.3 - 8.2 L [facility] Albumin [Mass/volume] in Serum or Plasma 3.3 G/DL 3.9 - 5.0 L [facility] Globulin [Mass/volume] in Serum by calculation 2.6 GM/DL 2.4 - 3.2 [facility] A/G RATIO 1.3 0.8 - 2.0 [facility] Calcium [Mass/volume] in Serum or Plasma 8.0 MG/DL 8.4 - 10.2 L [facility] Bilirubin.total [Mass/volume] in Serum or Plasma <0.7 MG/DL 0.2 - 1.3 [facility] Alkaline phosphatase [Enzymatic activity/volume] in Serum or Plasma 137 U/L 38 - 126 H [facility] Aspartate aminotransferase [Enzymatic activity/volume] in Serum or Plasma 30 U/L 5 - 40 [facility] Alanine aminotransferase [Enzymatic activity/volume] in Seru m or Plasma 20 U/L 7 - 56 [facility] Anion gap 3 in Serum or Plasma 9.0 mmol/L 8.0 - 16.0 [facility] AGE 55 yrs [facility] NON-AA GFR 50 mL/min [facility] AFR AMER GFR 60 mL/min [facility] Male GFR In [...] >32 mL/min Normal ID Date Data Source [id number] 08/06/2020 11:13:00 AM EDT [address] [address] RESPIRATORY CARE REPORT ==== ---------NAME------- NUMBER SEX AGE ADMIT DISC. XRAY# F/C CYNDY Daniels [id number] F 55 08/05/20 [id number] B1 I/P DATE OF : 1965 M/R# [id number] #: [id number] CCU3 LOCATION: EMERGENCY DEPT EKG 41773 COMPLET E:08/06/20 11:00 [place] [address] PHYSICIAN: KIM MENDEZ Name Value Range Interpretation Code Description Data Maura rce(s) Supporting Document(s) ID Date Data Source [id number] 08/06/2020 11:11:00 AM EDT [address] [address] RESPIRATORY CARE REPORT ==== ---------NAME------- NUMBER SEX AGE ADMIT DISC. XRAY# F/C CYNDY Daniels [id number] F 55 08/05/20 [id number] B1 I/P DATE OF : 1965 M/R# [id number] PH#: [phone] RM CCU3 LOCATION: EMERGENCY DEPT EKG 35952 COMPLET E:08/06/20 04:39 T [address]30 PHYSICIAN: KIM MENDEZ Name Value Range Interpretation Code Description Data Maura rce(s) Supporting Document(s) ID Date Data Source [id number] 08/06/2020 11:10:00 [place] [address] RESPIRATORY CARE REPORT ==== ---------NAME------- NUMBER SEX AGE ADMIT DISC. XRAY# F/C CYNDY Daniels [id number] F 55 08/05/20 [id number] B1 I/P DATE OF : 1965 M/R# [id number] PH#: [phone] RM CCU3 LOCATION: EMERGENCY DEPT EKG 79886 COMPLET E:08/06/20 04:39 T [address]604 PHYSICIAN: KIM MENDEZ Name Value Range Interpretation Code Description Data Maura rce(s) Supporting Document(s) ID Date Data Source [id number] 08/06/2020 11:09:00 [place] [address] RESPIRATORY CARE REPORT ==== ---------NAME------- NUMBER SEX AGE ADMIT DISC. XRAY# F/C CYNDY Daniels [id number] F 55 08/05/20 [id number] B1 I/P DATE OF : 1965 M/R# [id number] PH#: [phone] CCU3 LOCATION: EMERGENCY DEPT EKG 99917 COMPLET E:08/06/20 04:39 [place] [address] PHYSICIAN: KIM MENDEZ Name Value Range Interpretation Code Description Data Maura rce(s) Supporting Document(s) ID Date Data Source [id number] 08/06/2020 11:08:00 [place] [address] RESPIRATORY CARE REPORT ==== ---------NAME------- NUMBER SEX AGE ADMIT DISC. XRAY# F/C CYNDY Daniels [id number] F 55 08/05/20 [id number] B1 I/P DATE OF : 1965 M/R# [id number] PH#: [phone] RM CCU3 LOCATION: EMERGENCY DEPT EKG 26216 COMPLET E:08/06/20 04:39 [place] [address] PHYSICIAN: KIM MENDEZ Name Value Range Interpretation Code Description Data Maura rce(s) Supporting Document(s) ID Date Data Source [id number] 08/06/2020 11:07:00 [place] [address] RESPIRATORY CARE REPORT ==== ---------NAME------- NUMBER SEX AGE ADMIT DISC. XRAY# F/C CYNDY Daniels [id number] F 55 08/05/20 [id number] B1 I/P DATE OF : 1965 M/R# [id number] PH#: [phone] CCU3 LOCATION: EMERGENCY DEPT EKG 41512 COMPLET E:08/06/20 04:39 [place] [address] PHYSICIAN: KIM MENDEZ Name Value Range Interpretation Code Description Data Maura rce(s) Supporting Document(s) ID Date Data Source [id number] 08/06/2020 11:06:00 [place] [address] RESPIRATORY CARE REPORT ==== ---------NAME------- NUMBER SEX AGE ADMIT DISC. XRAY# F/C CYNDY Daniels [id number] F 55 08/05/20 [id number] B1 I/P DATE OF : 1965 M/R# [id number] PH#: [phone] RM CCU3 LOCATION: EMERGENCY DEPT EKG 68860 COMPLET E:08/06/20 04:39 [place] [address] PHYSICIAN: KIM MENDEZ Name Value Range Interpretation Code Description Data Maura rce(s) Supporting Document(s) ID Date Data Source [id number] 08/06/2020 11:05:00 [place] [address] RESPIRATORY CARE REPORT ==== ---------NAME------- NUMBER SEX AGE ADMIT DISC. XRAY# F/C OSMANIJUANITO Daniels [id number] F 55 08/05/20 [id number] B1 I/P DATE OF : 1965 M/R# [id number] PH#: [phone] CCU3 LOCATION: EMERGENCY DEPT EKG 96153 COMPLET E:08/06/20 02:15 [place] [address] PHYSICIAN: KIM MENDEZ Name Value Range Interpretation Code Description Data Maura rce(s) Supporting Document(s) ID Date Data Source [id number] 08/06/2020 07:24:00 [place] [address] ---------NAME--------- NUMBER SEX AGE ADMIT DISC. XRAY# F/C OSMANI JUANITO Daniels [id number] F 55 08/05/20 [id number] B1 I/P DATE OF : 1965 M/R# [id number] PH#: [phone] [id number] LOCATION: EMERGENCY DEPT TRANSCRIBED: 08/06/20 7:[address] THORAX W/O CONTRAST [id number] COMPLETED:08/06/20 6:07 RLB [id number] {REASON FOR CHEST: Pleural Effusion PHYSICIAN: KIM [...] rce(s) Supporting Document(s) ID Date Data Source [id number] 08/06/2020 08:02:00 AM EDT [facility] Name Value Range Interpretation Code Description Data Maura rce(s) Supporting Document(s) Lactate [Moles/volume] in Serum or Plasma 1.6 MMOL/L 0.2 - 2.2 [facility] ID Date Data Source [id number] 08/06/2020 08:02:00 AM EDT [facility] Name Value Range Interpretation Code Description Data Maura rce(s) Supporting Document(s) CBC W/AUTOMATED DIFF [facility] COMPLETE BLOOD COUNT Leukocytes [#/volume] in Blood by Automated count 2.8 10^3/uL 4.2 - 1 1.0 L [facility] Erythrocytes [#/volume] in Blood by Automated count 2.57 10^6/uL 4. 20 - 5.40 L [facility] Hemoglobin [Mass/volume] in Blood 9.5 g/dL 12.0 - 16.0 L [facility] Hematocrit [Volume Fraction] of Blood by Automated count 27.9 % 3 7.0 - 47.0 L [facility] Erythrocyte mean corpuscular volume [Entitic volume] b y Automated count 108.6 fL 81.0 - 101 H [facility] Erythrocyte mean corpuscular hemoglobin [Entitic mass] by Automated count 37.0 pg 27.0 - 34.0 H [facility] Erythrocyte mean corpuscular hemoglobin concentration [Mass/volume] by Automated count 34.1 g/dL 31.0 - 36.0 [facility] Erythrocyte distribution width [Ratio] by Automated count 13.6 % 11.5 - 14.5 [facility] Platelets [#/volume] in Blood by Automated count 47 10^3/uL 150 - 450 L [facility] Platelet mean volume [Entitic volume] in Blood by Automated count 10.7 fL 7.4 - 10.4 H [facility] Neutrophils/100 leukocytes in Blood by Automated count 48.1 % 37. 0 - 80.0 [facility] Lymphocytes/100 leukocytes in Blood by Manual count 9.6 % 25.0 - 40.0 L [facility] Monocytes/100 leukocytes in Blood by Automated count 33.7 % 3.0 - 8.0 H [facility] Eosinophils/100 leukocytes in Blood by Automated count 7.8 % 0.0 - 7.0 H [facility] Basophils/100 leukocytes in Blood by Automated count 0.4 % 0.0 - 2.5 [facility] %IG 0.4 % 0.0 - 0.0 H [facility] %NRBC 0.0 % 0.0 - 0.0 [facility] al Neutrophils [#/volume] in Blood by Automated count 1.36 10^3/uL 2.00 - 6.90 L [facility] Lymphocytes [#/volume] in Blood by Automated count 0.27 10^3/uL 0.60 - 3.40 L [facility] Monocytes [#/volume] in Blood by Automated count 0.95 10^3/uL 0.00 - 0.90 H [facility] Eosinophils [#/volume] in Blood by Automated count 0.22 10^3/uL 0.00 - 0.70 [facility] Basophils [#/volume] in Blood by Automated count 0.01 10^3/uL 0.00 - 0.20 [facility] #IG 0.01 10^3/uL 0.00 - 0.10 [facility] #NRBC 0.00 10^3/uL 0.00 - 0.00 [facility] MANUAL DIFF NOT INDICATED [facility] RBC MORPH NOT INDICATED [facility] ID Date Data Source [id number] 08/06/2020 08:00:00 AM EDT [facility] Name Value Range Interpretation Code Description Data Maura rce(s) Supporting Document(s) BNP 1738 PG/ML 0 - 125 H [facility] willy ID Date Data Source [id number] 08/06/2020 08:00:00 AM EDT [facility] Name Value Range Interpretation Code Description Data Maura rce(s) Supporting Document(s) TROPONIN T <0.01 NG/ML 0.00 - 0.10 [facility]ital TROPONIN T0.1 ng/ml Recommended as the c linical threshold value Kathie Maxwell ID Date Data Source [id number] 08/06/2020 08:00:00 AM EDT [facility] Name Value Range Interpretation Code Description Data Maura rce(s) Supporting Document(s) Hemoglobin A1c/Hemoglobin.total in Blood 4.8 % 4.4 - 6.1 [facility] {A1]{HB] ID Date Data Source [id number] 08/06/2020 07:38:00 AM EDT [facility] Name Value Range Interpretation Code Description Data Maura rce(s) Supporting Document(s) CVE PANEL [facility] al LIPID PANEL Cholesterol [Mass/volume] in Serum or Plasma 154 MG/DL 131 - 200 [facility] Deprecated Triglyceride [Mass/volume] in Serum or Plasma 130 MG/DL 3 5 - 160 [facility] HDL 63 MG/DL 29 - 86 [facility] al Cholesterol in LDL [Mass/volume] in Serum or Plasma by Direc t assay 68 mg/dL 65 - 175 [facility] Cholesterol.total/Cholesterol in HDL [Mass Ratio] in Serum o r Plasma 2.4 3.2 - 4.4 L [facility] LDL/HDL 1.08 1.47 - 3.22 L [facility] ital CVE RISK CHOL/HDL LDL/HDLMEN: 1/2 AVERAGE 3.43 1.00 AVERAGE 4.97 3.55 2X AVERAGE 9.55 6.25 3X AVERAGE 23.99 7.99WOMEN: 1/2 AVERAGE 3.27 1.47 AVERAGE 4.44 3.22 2X AVERAGE 7.05 5.03 3X AVERAGE 11.04 6.14 ID Date Data Source [id number] 08/06/2020 07:38:00 AM EDT [facility] Name Value Range Interpretation Code Description Data Maura rce(s) Supporting Document(s) COMPREHENSIVE METABOLIC PANEL [facility] COMPREHENSIVE METABOLIC PANEL Sodium [Moles/volume] in Serum or Plasma 137 mEq/L 134 - 153 [facility] Potassium [Moles/volume] in Serum or Plasma 4.0 mEq/L 3.6 - 5.0 [facility] Chloride [Moles/volume] in Serum or Plasma 99 mEq/L 98 - 107 [facility] Carbon dioxide, total [Moles/volume] in Serum or Plasma 30 MEQ/L 22 - 30 [facility] Glucose [Mass/volume] in Serum or Plasma 114 MG/DL 65 - 110 H [facility] BUN 11 MG/DL 7 - 21 [facility] Creatinine [Mass/volume] in Serum or Plasma 1.2 MG/DL 0.7 - 1.5 [facility] BUN/CREAT 9 8 - 27 [facility] Protein [Mass/volume] in Serum or Plasma 6.1 G/DL 6.3 - 8.2 L [facility] Albumin [Mass/volume] in Serum or Plasma 3.4 G/DL 3.9 - 5.0 L [facility] Globulin [Mass/volume] in Serum by calculation 2.7 GM/DL 2.4 - 3.2 [facility] A/G RATIO 1.3 0.8 - 2.0 [facility] Calcium [Mass/volume] in Serum or Plasma 8.1 MG/DL 8.4 - 10.2 L [facility] Bilirubin.total [Mass/volume] in Serum or Plasma <0.7 MG/DL 0.2 - 1.3 [facility] Alkaline phosphatase [Enzymatic activity/volume] in Serum or Plasma 129 U/L 38 - 126 H [facility] Aspartate aminotransferase [Enzymatic activity/volume] in Serum or Plasma 33 U/L 5 - 40 [facility] Alanine aminotransferase [Enzymatic activity/volume] in Seru m or Plasma 22 U/L 7 - 56 [facility] Anion gap 3 in Serum or Plasma 8.0 mmol/L 8.0 - 16.0 [facility] 55 [facility] AMER GFR 60 mL/min [facility] Male GFR In [...] >32 mL/min Normal ID Date Data Source [id number] 08/06/2020 07:35:00 AM EDT [facility] Name Value Range Interpretation Code Description Data Maura rce(s) Supporting Document(s) Magnesium [Mass/volume] in Serum or Plasma 1.7 MG/DL 1.7 - 2.2 [facility] ID Date Data Source [id number] 08/06/2020 12:59:00 PM EDT [facility] Value Range Interpretation Code Description Data Maura rce(s) Supporting Document(s) Cobalamin (Vitamin B12) [Mass/volume] in Serum or Plasma 475 PG/ML 232 - 1245 [facility] ID Date Data Source [id number] 08/06/2020 12:40:00 PM EDT [facility] Value Range Interpretation Code Description Data Maura rce(s) Supporting Document(s) Iron [Mass/volume] in Serum or Plasma 50 UG/DL 42 - 135 [facility] ID Date Data Source [id number] 08/05/2020 08:23:00 PM EDT [facility] 1 OrderSheet [facility] Emergency Department [address] [place] [address] Phone #: ext- [phone] 08/05/2020 20:20 Patient: CHANTALE SOLOMON Sex: F : 1965 Age: 55yWEIGHT:83.9 kg HEIGHT:60 inches BMI:36.1ALLERGIES: Penicillins, SeafoodCHIEF COMPLAINT: chest pain, discomfortDIAGNOSIS: Atrial fibrillationLAB ORDERSOrder Description Priority Entered Acknowledged InitialedCBC w Diff STAT 20:21 08/05/2020 20:26 Sandi Carmona Norma MD; Joao GallagherCMP STAT 20:08/05/2020 20:26 Sandi Carmona Norma MD; Joao GallagherTroponin-T [...] MD; Joao GallagherAmiodarone Drip IV 21:08/05/2020 21:26 Kristine,- Loading Dose : Shauna Junior MD; Joao GallagherBolus 150mg, thenover 15 min (NOWx1, HIGH ALERT 2 OrderSheet [facility] Emergency Department [address] [place] [address] Phone #: ext- [phone] 08/05/2020 20:20 Patient: CHANTALE SOLOMON Sex: F [...] rce(s) Supporting Document(s) ID Date Data Source [id number] 08/05/2020 08:23:00 PM EDT [facility] 1 Medication Reconciliation Report [facility] Emergency Department [address] [place] [address] Phone #: ext- [phone] 08/05/2020 20:20 Patient: CHANTALE SOLOMON Sex: F : 1965 Age: 55yWeight: 83.9 kgHeight/Length: 60 in.BMI: 36.1ALLERGIES: Penicillins, SeafoodThe patient's Home Medications are listed below:THE FOLLOWING MEDICATIONS NEED TO BE RECONCILED: Btstolic dilTIAZem HCl Oral Pantoprazole Sodium Oral Pharmacy [facility] Spiriva HandiHaler Inhalation Symbicort Inhalation [...] 08/05/2020 9:28:00 PM 2 Medication Reconciliation Report [facility] Emerge ncy Department [address] [place] [address] Phone #: ext- [phone] 08/05/2020 20:20 Patient: CHANTALE SOLOMON Sex: F : 1965 Age: 55yMagnesium Sulfate [IV Drip] Drip IV bolus 0, then 2 gm 2 gm/hr, administered: 08/05/2020 9:52:00 PMThe following Medications were prescribed to the pa tient:None. Name Value Range Interpretation Code Description Data Maura rce(s) Supporting Document(s) ID Date Data Source [id number] 08/05/2020 08:23:00 PM EDT [facility] 1 Medication Administration Record [facility] Emergency Department [address] [place] [address] Phone #: ext- [phone] 08/05/2020 20:20 Patient: CHANTALE SOLOMON Sex: F : 1965 Age: 55yWeight: 83.9 kgHeight/Length: 60 inBMI: 36.1ALLERGIES: Penicillins, Seafood Date/Time Medication Administered Medication OrderedGiven CARDIZEM [IVP] (DILTIAZEM HCL) Cardizem IVP 20 mg (NOW x1)20:37 08/05/2020 Dose: 20 mg IVPGJoao stevenson R.N. Site: #1 left ACStart NS [IV] IV NS 500 mL Bolus : Bolus 61705:38 08/05/2020 Dose: IV Fluids mL (X1)Joao Carmona R.N. Rate: 500 mL/hr over 60 minute(s)---- Dispensed: 1000 mL bagContinued Upon Disposition Site: #1 left AC22:06 08/05/2020Joao Carmona R.N.Start AMIODARONE [IV DRIP] Amiodarone Drip IV - Mkqntfk41:26 08/05/2020 Dose: 150 mg Drip IV Dose : Bolus 150mg, then over 15GrJoao mcfarland R.N. Rate: 1 mg/min over 10 minute(s) min (NOW x1, HIGH ALERT---- Dispensed: 100 mL bag MEDICATION, Loading dose ofStop Site: #1 left AC 150 mg/100 mL over 10 :35 08/05/2020 (600 mL/hr))Joao Carmona R.N.Start CARDIZEM [IV [...] rce(s) Supporting Document(s) ID Date Data Source [id number] 08/05/2020 08:23:00 PM EDT [facility] 1 General Instructions [facility] Emergency Department [address] [place] [address] Phone #: ext [phone] 08/05/2020 20:20 Patient: CHANTALE SOLOMON Sex: F : 1965 Age: 55yAtrial fibrillation with uncontrolled rate.(Electronically signed by Shauna Junior MD 08/06/2020 00:32) Name Value Range Interpretation Code Description Data Maura rce(s) Supporting Document(s) ID Date Data Source [id number] 08/05/2020 08:23:00 PM EDT [facility] 1 Clinical Report - Nurses [facility] Emergency Department [address] [place] [address] Phone #: [phone] ext [phone] 08/05/2020 20:20 Patient: CHANTALE SOLOMON Sex: F [...] 60 inches. BMI: 36.1. --20:23 08/05/20 Joao Carmnoa R.N.MedicationsdilTIAZem HCl Oral. Pantoprazole Sodium Oral. Pharmacy [facility]. Spiriva HandiHaler Inhalation. Symbicort Inhalation. [...] harming or 2 Clinical Report - Nurses [facility] Emergency Department [address] [place] [address] Phone #: [phone] 08/05/2020 20:20 [id number] Sex: F : 1965 Age: 55y killing [...] Carmona R.N. 3 Clinical Report - Nurses [facility] Emergency Department [address] [place] [address] Phone #: ext- [phone] 08/05/2020 20:20 Patient: [...] Carmona R.N. 4 Clinical Report - Nurses [facility] Emergency Department [address] [place] [address] Phone #: ext- [phone] 08/05/2020 20:20 Patient: [...] Carmona R.N.Locked/Released at 08/05/2020 22:23 by Joao aCrmona R.N. Name Value Range Interpretation Code Description Data Maura rce(s) Supporting Document(s) ID Date Data Source [id number] 08/05/2020 08:23:00 PM EDT [facility] 1 Clinical Report - Physicians/Mid Levels [facility] Emergency Department [address] [place] [address] Phone #: ext- [phone] 08/05/2020 20:20 Patient: [...] Septoplasty. 2 Clinical Report - Physicians/Mid Levels [facility] Emergency Department [address] [place] [address] Phone #: ext- [phone] 08/05/2020 20:20 Patient: CHANTALE SOLOMON Sex: F : 1965 Age: 55y Septoplasty. Tonsillectomy. Tubal Ligation. Medications: Btstolic. dilTIAZem HCl Oral. Pantoprazole Sodium Oral. [facility] Spiriva HandiHaler Inhalation. Symbicort Inhalation. Tylenol Oral. [...] Tachycardia. Pulses normal. 3 Clinical Report - Physicians/[facility] Emergency Department [address] [place] [address] Phone #: ext- [phone] 08/05/2020 20:20 Patient: [...] SHAUNA COMMENT: __ 4 Clinical Report - Physicians/[facility] Emergency Department [address] [place] [address] Phone #: ext- [phone] 08/05/2020 20:20 Patient: [...] in to admit the patient. he recommended [id number] iv. labs reviewed. her magnesium was slightly [...] rce(s) Supporting Document(s) ID Date Data Source [id number] 08/05/2020 08:23:00 PM EDT [facility] CHANTALE Angel VisitID: [id number] Date: 21:33MedicationReconciliation request faxed to [facility] @ 7169; Faxed overview to [facility] @ [phone](Electronically signed by Benjamín Shore - 08/05/2020 21:33) Name Value Range Interpretation Code Description Data Maura rce(s) Supporting Document(s) ID Date Data Source [id number] 08/05/2020 10:14:00 PM EDT [facility] Name Value Range Interpretation Code Description Data Maura rce(s) Supporting Document(s) BNP 1159 PG/ML 0 - 125 H [facility] willy ID Date Data Source [id number] 08/05/2020 10:14:[address] [facility] Name Value Range Interpretation Code Description Data Maura rce(s) Supporting Document(s) Thyrotropin [Units/volume] in Serum or Plasma by Detec tion limit <= 0.05 mIU/L 3.01 uIU/mL 0.47 - 5.01 [facility] ID Date Data Source [id number] 08/05/2020 09:41:00 PM EDT [facility] Name Value Range Interpretation Code Description Data Maura rce(s) Supporting Document(s) COMPREHENSIVE METABOLIC PANEL [facility] COMPREHENSIVE METABOLIC PANEL Sodium [Moles/volume] in Serum or Plasma 132 mEq/L 134 - 153 L [facility] Potassium [Moles/volume] in Serum or Plasma 3.6 mEq/L 3.6 - 5.0 [facility] Chloride [Moles/volume] in Serum or Plasma 94 mEq/L 98 - 107 L [facility] Carbon dioxide, total [Moles/volume] in Serum or Plasma 24 MEQ/L 22 - 30 [facility] Glucose [Mass/volume] in Serum or Plasma 119 MG/DL 65 - 110 H [facility] BUN 11 MG/DL 7 - 21 [facility] Creatinine [Mass/volume] in Serum or Plasma 1.3 MG/DL 0.7 - 1.5 [facility] BUN/CREAT 8 8 - 27 [facility] Protein [Mass/volume] in Serum or Plasma 6.9 G/DL 6.3 - 8.2 [facility] Albumin [Mass/volume] in Serum or Plasma 3.5 G/DL 3.9 - 5.0 L [facility] Globulin [Mass/volume] in Serum by calculation 3.4 GM/DL 2.4 - 3.2 H [facility] A/G RATIO 1.0 0.8 - 2.0 [facility] Calcium [Mass/volume] in Serum or Plasma 8.1 MG/DL 8.4 - 10.2 L [facility] Bilirubin.total [Mass/volume] in Serum or Plasma 0.3 MG/DL 0.2 - 1.3 [facility] Alkaline phosphatase [Enzymatic activity/volume] in Serum or Plasma 129 U/L 38 - 126 H [facility] Aspartate aminotransferase [Enzymatic activity/volume] in Serum or Plasma 35 U/L 5 - 40 [facility] Alanine aminotransferase [Enzymatic activity/volume] in Seru m or Plasma 23 U/L 7 - 56 [facility] Anion gap 3 in Serum or Plasma 14.0 mmol/L 8.0 - 16.0 [facility] AGE 55 yrs [facility] NON-AA GFR 45 mL/min [facility]illy AFR AMER GFR 55 mL/min [facility] Male GFR In [...] >32 mL/min Normal ID Date Data Source [id number] 08/05/2020 09:40:[address] [facility] Name Value Range Interpretation Code Description Data Maura rce(s) Supporting Document(s) Magnesium [Mass/volume] in Serum or Plasma 1.2 MG/DL 1.7 - 2.2 L [facility] ID Date Data Source [id number] 08/05/2020 09:27:[address] [facility] Name Value Range Interpretation Code Description Data Maura rce(s) Supporting Document(s) TROPONIN T <0.01 NG/ML 0.00 - 0.10 [facility] ospital TROPONIN T0.1 ng/ml Recommended as the c linical threshold value forTroponin T. ID Date Data Source [id number] 08/05/2020 09:01:[address] [facility] Name Value Range Interpretation Code Description Data Maura rce(s) Supporting Document(s) CBC W/AUTOMATED DIFF [facility] COMPLETE BLOOD COUNT Leukocytes [#/volume] in Blood by Automated count 3.2 10^3/uL 4.2 - 1 1.0 L [facility] Erythrocytes [#/volume] in Blood by Automated count 2.66 10^6/uL 4. 20 - 5.40 L [facility] Hemoglobin [Mass/volume] in Blood 10.1 g/dL 12.0 - 16.0 L [facility] Hematocrit [Volume Fraction] of Blood by Automated count 28.9 % 3 7.0 - 47.0 L [facility] Erythrocyte mean corpuscular volume [Entitic volume] b y Automated count 108.6 fL 81.0 - 101 H [facility] Erythrocyte mean corpuscular hemoglobin [Entitic mass] by Automated count 38.0 pg 27.0 - 34.0 H [facility] Erythrocyte mean corpuscular hemoglobin concentration [Mass/volume] by Automated count 34.9 g/dL 31.0 - 36.0 [facility] Erythrocyte distribution width [Ratio] by Automated count 13.6 % 11.5 - 14.5 [facility] Platelets [#/volume] in Blood by Automated count 47 10^3/uL 150 - 450 L [facility] Platelet mean volume [Entitic volume] in Blood by Automated count 10.0 fL 7.4 - 10.4 [facility] Neutrophils/100 leukocytes in Blood by Automated count 34.4 % 37. 0 - 80.0 L [facility] Lymphocytes/100 leukocytes in Blood by Manual count 22.0 % 25.0 - 40.0 L [facility] Monocytes/100 leukocytes in Blood by Automated count 36.8 % 3.0 - 8.0 H [facility] Eosinophils/100 leukocytes in Blood by Automated count 5.9 % 0.0 - 7.0 [facility] 0.6 %IG 0.3 % 0.0 - 0.0 [facility] %NRBC 0.0 % 0.0 - 0.0 [facility] al Neutrophils [#/volume] in Blood by Automated count 1.11 10^3/uL 2.00 - 6.90 L [facility] Lymphocytes [#/volume] in Blood by Automated count 0.71 10^3/uL 0.60 - 3.40 [facility] Monocytes [#/volume] in Blood by Automated count 1.19 10^3/uL 0.00 - 0.90 H [facility] Eosinophils [#/volume] in Blood by Automated count 0.19 10^3/uL 0.00 - 0.70 [facility] Basophils [#/volume] in Blood by Automated count 0.02 10^3/uL 0.00 - 0.20 [facility] #IG 0.01 10^3/uL 0.00 - 0.10 [facility] #NRBC 0.00 10^3/uL 0.00 - 0.00 [facility] MANUAL DIFF SEE BELOW [facility] Segmented neutrophils/100 leukocytes in Blood by Manual count 36 % 37 - 80 L [facility] %LYMPH 38 % 25 - 40 [facility] %MONO 21 % 3 - 8 H [facility] %EOS 4 % 0 - 7 [facility] 1 RBC MORPH SEE BELOW [facility] Anisocytosis [Presence] in Blood by Light microscopy 1+ SHAUNA L: NONE SEEN A [facility] Macrocytes [Presence] in Blood by Light microscopy 2+ NORMAL: NONE SEEN A [facility] HYPO 1+ NORMAL: NONE SEEN A [facility] { SICKLE CELL (NORMAL: NONE SEEN ) Platelet adequacy [Presence] in Blood by Light microscopy DE CREASED NORMAL: NORMAL A [facility] COMMENT: ID Date Data Source [id number] 08/02/2020 01:04:00 PM EDT [facility] [address] [place] [address] PHONE: [phone] FAX: [phone] Name .................. : JUANITO Daniels Acct Number.................. : [id number] ROOM. ................. : Number ................... : [id number] Stay type ............. : O/P Discharge Date......... ... : 08/01/20 Admit Date ......... : 08/01/20 Admit Phys .................... : MILVIA MARIA DEL CARMEN Date of ....... : 1965 Family Phys ................... : REGINE GAIL Phone .................. : [phone] Age ................................ : 55 Film# .................. .:[id number] Sex ................................. : F Unsigned transcriptions are preliminary reports and do not represent a medical or legal document TIBULA/FIBULA - BILATERAL [id number] COMPLETE:08/01/20 11:39 [facility] [id number] (REASON FOR PROCESS: LEG PAIN BILATERAL TIBIA [...] MD , 08/02/20 13:04, KGG Transcribe Initials: SSR, Transcribe Date: 08/01/20 14:16, Dictation Date: Copy for: MILVIA PIZANO via fax Copy for: [address] [place] [address] REC Page 1 of 1 Name Value Range Interpretation Code Description Data Maura rce(s) Supporting Document(s) ID Date Data Source [id number] 08/02/2020 01:04:00 PM EDT [facility] [address] [place] [address] PHONE: [phone] FAX: [phone] Name .................. : JUANITO Daniels Acct Number.................. : [id number] ROOM. ................. : Number ................... : [id number] Stay type ............. : O/P Discharge Date......... ... : 08/01/20 Admit Date ......... : 08/01/20 Admit Phys .................... : MILVIA JOYCE Date of ....... : 1965 Family Phys ................... : SEQUEIRA Phone .................. : [phone] Age ................................ : 55 Film# .................. .:[id number] Sex ................................. : F Unsigned transcriptions are preliminary reports and do not represent a medical or legal document CHEST 2 VIEWS [id number] COMPLETE:08/01/20 11:39 [facility] [id number] (REASON FOR CHEST: COUGH TWO VIEW CHEST, [...] MD , 08/02/20 13:04, KGG Transcribe Initials: [facility], Transcribe Date: 08/01/20 14:13, Dictation Date: Copy for: MILVIA PIZANO via fax Copy for: [address] [place] [address] REC Page 1 of 1 Name Value Range Interpretation Code Description Data Maura rce(s) Supporting Document(s) Procedure Social History Code Duration Value Status Description Data Source(s ) Alcohol intake 08/22/2021 12:00:00 AM EDT Ex-drinker (finding) comp leted Ex- drinker (finding) [facility] Tobacco use and exposure 08/17/2021 12:00:00 AM EDT Never used co mpleted Never used [facility] Cigarette pack-years 08/17/2021 12:00:00 AM EDT UNK completed [facility] Cigarettes smoked current (pack per day) - Reported 08/17/20 21 12:00:00 AM EDT UNK completed [facility] Smoking 08/17/2021 12:00:00 AM EDT Former smoker completed Former smoker [facility] Alcohol intake 08/17/2021 12:00:00 AM EDT Ex-drinker (finding) comp leted Ex- drinker (finding) [facility] Smoking 07/20/2021 12:00:00 AM EDT Patient is a former smoker completed Patient is a former smoker [facility] ([facility], ) Smoking 06/15/2021 03:41:58 PM EDT Ex-smoker (finding) complet ed Ex-smoker (finding) CJ (Cesar Barrow MD [facility]) Smoking 05/24/2021 12:00:00 AM EDT Patient is a former smoker completed Patient is a former smoker [facility] ([facility]) Smoking 11/23/2020 11:01:50 AM EST Smokes tobacco daily (findi ng) completed Smokes tobacco daily (finding) CJ (Cesar Barrow MD [facility]) Smoking 10/05/2020 12:46:34 PM EST Ex-smoker (finding) complet ed Ex-smoker (finding) CJ (Cesar Barrow MD [facility]) Vital Signs ID Date Data Source UNK Name Value Range Interpretation Code Description Data Source(s) Systolic blood pressure 114 mm[Hg] 114 mm[Hg] [facility] Diastolic blood pressure 76 mm[Hg] 76 mm[Hg] [facility] Heart rate 94 /min 94 /min [facility] Body temperature 37.61 Salma 37.61 Salma [facility] Respiratory rate 16 /min 16 /min [facility] Oxygen saturation in Arterial blood by Pulse oximetry 98 % 98 % [facility] Body height 152.[address] [facility] Body weight 74.[address] [facility] Body mass index (BMI) [Ratio] 32.22 kg/m2 32.22 kg/m2 [facility] Systolic blood pressure 106 mm[Hg] 106 mm[Hg] [facility] Diastolic blood pressure 66 mm[Hg] 66 mm[Hg] [facility] Heart rate 77 /min 77 /min [facility] Body height 152.[address] [facility] Body weight 74.[address] [facility] Body mass index (BMI) [Ratio] 31.91 kg/m2 31.91 kg/m2 [facility] Oxygen saturation in Arterial blood by Pulse oximetry 99 % 99 % [facility] Diastolic blood pressure 70 mm[Hg] 70 mm[Hg] [facility] ([facility]) Body weight 75.298 kg 75.298 kg [facility] ([facility]) Body weight 166.00 [lb_av] 166.00 [lb_av] [facility] ([facility]) Body surface area Derived from formula 1.72 m2 1.72 m2 [facility] ([facility]) Heart rate 78 /min 78 /min [facility] ([facility]) Systolic blood pressure 110 mm[Hg] 110 mm[Hg] [facility] ([facility]) Oxygen saturation in Arterial blood by Pulse oximetry 96 % 96 % [facility] ([facility]) Body height 60 [in_i] 60 [in_i] [facility] ([facility]) 5'0" Body mass index (BMI) [Ratio] 32.4 kg/m2 32.4 k g/m2 [facility] ([facility]) [place] body weight 100 [lb_av] 100 [[facility]_av] [facility] Oxygen saturation in Arterial blood by Pulse oximetry 96 % 96 % [facility] (Osm[facility]) Heart rate 94 /min 94 /min [facility]) Body height 60 [in_i] 60 [in_i] [facility] (Osmel [facility]) 5'0" Body weight 166.00 [lb_av] 166.00 [lb_av] [facility] (Osmel Alvarez MD) Body mass index (BMI) [Ratio] 32.4 kg/m2 32.4 k g/m2 [facility] Body temperature 97.5 [degF] 97.5 [degF] [facility] ([facility]sm[facility]) Systolic blood pressure 108 mm[Hg] 108 mm[Hg] [facility] Diastolic blood pressure 71 mm[Hg] 71 mm[Hg] [facility] (Osmel Alvarez MD) Body surface area Derived from formula 1.74 m2 1.74 m2 [facility] ([facility]) Body weight 76.829 kg 76.829 kg [facility] ([facility]) Diastolic blood pressure 68 mm[Hg] 68 mm[Hg] [facility]) Heart rate 80 /min 80 /min [facility] ([facility]) Oxygen saturation in Arterial blood by Pulse oximetry 992 % 992 % [facility] ([facility]) Body height 60 [in_i] 60 [in_i] [facility] ([facility]) 5'0" Body weight 169.38 [lb_av] 169.38 [lb_av] [facility] ([facility]) Body mass index (BMI) [Ratio] 33.1 kg/m2 33.1 k g/m2 [facility] ([facility]) [place] body weight 100 [lb_av] 100 [lb_av] [facility] ([facility]) Systolic blood pressure 115 mm[Hg] 115 mm[Hg] M [facility] ([facility]) Body weight 172.00 [lb_av] 172.00 [lb_av] [facility] (Osmel Alvarez MD) Systolic blood pressure 116 mm[Hg] 116 mm[Hg] [facility] Oxygen saturation in Arterial blood by Pulse oximetry 99 % 99 % [facility] (Osmel Alvarez MD) Body mass index (BMI) [Ratio] 33.6 kg/m2 33.6 k g/m2 [facility] (Osmel Alvarez MD) Body height 60 [in_i] 60 [in_i] [facility] (Osmel Alvarez [facility]) 5'0" Body temperature 97.5 [degF] 97.5 [degF] [facility] (Osmel Alvarez [facility]) Heart rate 87 /min 87 /min [facility] (Osmel Alvarez MD) Diastolic blood pressure 69 mm[Hg] 69 mm[Hg] [facility] (Osmel Alvarez MD) Body surface area Derived from formula 1.76 m2 1.76 m2 [facility] ([facility]) Systolic blood pressure 100 mm[Hg] 100 mm[Hg] M [facility] ([facility]) Heart rate 81 /min 81 /min [facility] ([facility]) Diastolic blood pressure 68 mm[Hg] 68 mm[Hg] [facility] ([facility]) Oxygen saturation in Arterial blood by Pulse oximetry 982 % 982 % [facility] ([facility]) Body height 60 [in_i] 60 [in_i] [facility] ([facility]) 5'0" Body weight 173.00 [lb_av] 173.00 [lb_av] [facility] ([facility]) Body mass index (BMI) [Ratio] 33.8 kg/m2 33.8 k g/m2 [facility] ([facility]) [place] body weight 100 [lb_av] 100 [lb_av] [facility] ([facility]) Body weight 78.473 kg 78.473 kg [facility] ([facility]) Systolic blood pressure 102 mm[Hg] 102 mm[Hg] M [facility] ([facility]) Diastolic blood pressure 62 mm[Hg] 62 mm[Hg] [facility] ([facility]) Heart rate 82 /min 82 /min [facility] ([facility]) Oxygen saturation in Arterial blood by Pulse oximetry 942 % 942 % [facility] ([facility]) Body height 60 [in_i] 60 [in_i] [facility] ([facility]) 5'0" Body weight 172.00 [lb_av] 172.00 [lb_av] [facility] ([facility]) [place] body weight 100 [lb_av] 100 [lb_av] [facility] ([facility]) Body weight 78.019 kg 78.019 kg [facility] ([facility]) Body surface area Derived from formula 1.75 m2 1.75 m2 [facility] ([facility]) Body mass index (BMI) [Ratio] 33.6 kg/m2 33.6 k g/m2 [facility] ([facility]) Body weight 78.019 kg 78.019 kg [facility]) [place] body weight 100 [lb_av] 100 [lb_av] [facility] ([facility]) Body height 60 [in_i] 60 [in_i] [facility] ([facility]) 5'0" Body weight 172.00 [lb_av] 172.00 [lb_av] [facility] ([facility]) Body mass index (BMI) [Ratio] 33.6 kg/m2 33.6 k g/m2 [facility] ([facility]) Body surface area Derived from formula 1.75 m2 1.75 m2 [facility] ([facility]) Systolic blood pressure 110 mm[Hg] 110 mm[Hg] M [facility] ([facility]) Diastolic blood pressure 60 mm[Hg] 60 mm[Hg] [facility] ([facility]) Heart rate 91 /min 91 /min [facility] ([facility]) Oxygen saturation in Arterial blood by Pulse oximetry 983 % 983 % [facility] ([facility]) Oxygen saturation in Arterial blood by Pulse oximetry 97 % 97 % [facility] (Osmel Alvarez MD) 3l Body temperature 96.8 [...] Heart rate 90 /min 90 /min [facility] ([facility] Systolic blood pressure--sitting 120 mm[Hg] 120 mm[Hg] [facility] ([facility] Diastolic blood pressure--sitting 70 mm[Hg] 70 mm[Hg] [facility] ([facility] Body mass index (BMI) [Ratio] 34.8 kg/m2 34.8 k g/m2 [facility] ([facility] Oxygen saturation in Arterial blood by Pulse oximetry 98 % 98 % [facility] ([facility] Body surface area Derived from formula 1.78 m2 1.78 m2 [facility] ([facility] Body weight 178.12 [lb_av] 178.12 [lb_av] [facility] ([facility] Body height 60 [in_i] 60 [in_i] [facility] ([facility] 5'0" Heart rate 87 /min 87 /min [facility] (Osmel Alvarez MD) Body temperature 97.3 [degF] 97.3 [degF] [facility] (Osmel Alvarez [facility]) Systolic blood pressure 105 mm[Hg] 105 mm[Hg] M [facility] (Osmel Alvarez [facility]) Diastolic blood pressure 66 mm[Hg] 66 mm[Hg] [facility] (Osmel Alvarez [facility]) Body height 60 [in_i] 60 [in_i] [facility] (Osmel Alvarez [facility]) 5'0" Body weight 179.12 [lb_av] 179.12 [lb_av] [facility] (Osmel Alvarez [facility]) Body mass index (BMI) [Ratio] 35.0 kg/m2 35.0 k g/m2 [facility] (Osmel Alvarez [facility]) Oxygen saturation in Arterial blood by Pulse oximetry 99 % 99 % [facility] (Osmel Alvarez [facility]) 3 Liter N/C Respiratory rate 18 /min 18 /min [facility] ( Osmel Alvarez MD) Body height 60 [in_i] 60 [in_i] [facility] ([facility], ) 5'0" Body weight 178.00 [lb_av] 178.00 [lb_av] [facility] ([facility], ) Body mass index (BMI) [Ratio] 34.8 kg/m2 34.8 k g/m2 [facility] ([facility], ) [place] body weight 100 [lb_av] 100 [lb_av] [facility] ([facility]) Body weight 80.741 kg 80.741 kg [facility] ([facility]) Body surface area Derived from formula 1.78 m2 1.78 m2 [facility] ([facility]) [place] body weight 100 [lb_av] 100 [lb_av] [facility] ([facility]) Body weight 80.741 kg 80.741 kg [facility] ([facility]) Body height 60 [in_i] 60 [in_i] [facility] ([facility]) 5'0" Heart rate 91 /min 91 /min [facility] ([facility]) Oxygen saturation in Arterial blood by Pulse oximetry 992 % 992 % [facility] ([facility]) Body temperature 97.3 [degF] 97.3 [degF] [facility] ([facility]) Body temperature 97.3 [degF] 97.3 [degF] [facility] ([facility]) Oxygen saturation in Arterial blood by Pulse oximetry 992 % 992 % [facility] ([facility]) Body weight 178.00 [lb_av] 178.00 [lb_av] [facility] ([facility]) Body mass index (BMI) [Ratio] 34.8 kg/m2 34.8 k g/m2 [facility] ([facility]) Body surface area Derived from formula 1.78 m2 1.78 m2 [facility] ([facility]) Systolic blood pressure 110 mm[Hg] 110 mm[Hg] [facility] ([facility]) Diastolic blood pressure 60 mm[Hg] 60 mm[Hg] [facility] ([facility]) Body weight 178.00 [lb_av] 178.00 [lb_av] [facility] (Osmel Alvarez [facility]) Body height 60 [in_i] 60 [in_i] [facility] (Osmel Alvarez [facility]) 5'0" Body mass index (BMI) [Ratio] 34.8 kg/m2 34.8 k g/m2 [facility] (Osmel Alvarez [facility]) Body temperature [...] 35.2 k g/m2 [facility] (Osmel Alvarez [facility]) Oxygen saturation in Arterial blood by Pulse oximetry 99 % 99 % [facility] (Osmel Alvarez [facility]) Systolic blood pressure 131 mm[Hg] 131 mm[Hg] M [facility] (Osmel Alvarez [facility]) Heart rate 108 /min 108 /min [facility] (Osmel Alvarez [facility]) Diastolic blood pressure 84 mm[Hg] 84 mm[Hg] [facility] (Osmel Alvarez [facility]) Body temperature 97.7 [degF] 97.7 [degF] [facility] ([facility] Alvarez [facility]) Body height 60 [in_i] 60 [in_i] [facility] (Osmel Alvarez [facility]) 5'0" Body weight 180.50 [lb_av] 180.50 [lb_av] [facility] (Osmel Alvarez [facility]) Heart rate 116 /min 116 /min [facility] [...] Heart rate 103 /min 103 /min [facility] (Osmle Alvarez [facility]) Oxygen saturation in Arterial blood by Pulse oximetry 99 % 99 % [facility] (Osmel Alvarez [facility]) Diastolic blood pressure 76 mm[Hg] 76 mm[Hg] [facility] ([facility] Al[facility]) Heart rate 114 /min 114 /min [facility] ([facility]smel Alvarez [facility]) Oxygen saturation [...] [facility] (Osmel Alvarez [facility]) 5'0" Body weight 179.25 [lb_av] 179.25 [lb_av] [facility] [...] pressure 102 mm[Hg] 102 mm[Hg] M [facility] ([facility], ) Diastolic blood pressure 82 mm[Hg] 82 mm[Hg] [facility] ([facility], ) Oxygen saturation in Arterial blood by Pulse oximetry 1002 % 1002 % [facility]) Body height 60 [in_i] 60 [in_i] [facility] ([facility]) 5'0" Body weight 178.00 [lb_av] 178.00 [lb_av] [facility] ([facility]) Body mass index (BMI) [Ratio] 34.8 kg/m2 34.8 k g/m2 [facility] ([facility]) [place] body weight 100 [lb_av] 100 [lb_av] [facility] ([facility]) Body weight 80.741 kg 80.741 kg [facility] ([facility]) Body surface area Derived from formula 1.78 m2 1.78 m2 [facility] ([facility]) Heart rate 87 /min 87 /min [facility] ([facility]) Oxygen saturation in Arterial blood by Pulse oximetry 1002 % 1002 % [facility] ([facility]) Body height 60 [in_i] 60 [in_i] [facility] ([facility]) 5'0" Body weight 178.00 [lb_av] 178.00 [lb_av] [facility] ([facility]) Body mass index (BMI) [Ratio] 34.8 kg/m2 34.8 k g/m2 [facility] ([facility]) [place] body weight 100 [lb_av] 100 [lb_av] [facility] Body weight 80.741 kg 80.741 kg [facility] ([facility]) Body surface area Derived from formula 1.78 m2 1.78 m2 [facility] ([facility]) Systolic blood pressure 110 mm[Hg] 110 mm[Hg] [facility] ([facility]) Diastolic blood pressure 70 mm[Hg] 70 mm[Hg] [facility] ([facility]) Heart rate 103 /min 103 /min [facility] ([facility]) Oxygen saturation in Arterial blood by Pulse oximetry 992 % 992 % [facility] ([facility]) Body temperature 98.6 [degF] 98.6 [degF] [facility] ([facility]) Body weight 177.00 [lb_av] 177.00 [lb_av] [facility] ([facility]) Body mass index (BMI) [Ratio] 34.6 kg/m2 34.6 k g/m2 [facility] ([facility]) [place] body weight 100 [lb_av] 100 [lb_av] [facility] ([facility]) Body weight 80.287 kg 80.287 kg [facility] Body surface area Derived from formula 1.77 m2 1.77 m2 [facility] ([facility]) Body height 60 [in_i] 60 [in_i] [facility] 5'0" Heart rate 100 /min 100 /min [facility] (Osmel Al[facility]) Body height 60 [in_i] 60 [in_i] [facility] ([facility]smel Alvarez [facility]) 5'0" Body weight 178.00 [lb_av] 178.00 [lb_av] [facility] (Osmel Alvarez [facility]) Body mass index (BMI) [Ratio] 34.8 kg/m2 34.8 k g/m2 [facility] ([facility]smel Alvarez [facility]) Body temperature 97.7 [degF] 97.7 [degF] [facility] ([facility]smel Alvarez [facility]) Systolic blood pressure 133 mm[Hg] 133 mm[Hg] [facility] ([facility]smel Alvarez [facility]) Diastolic blood pressure 84 mm[Hg] 84 mm[Hg] [facility] (Osmel Alvarez [facility]) Oxygen saturation in Arterial blood by Pulse oximetry 97 % 97 % [facility] (Osm[facility]) [place] body weight 100 [lb_av] 100 [lb_av] [facility] ([facility]) Body weight 80.287 kg 80.287 kg [facility] ([facility]) Body surface area Derived from formula 1.77 m2 1.77 m2 [facility] ([facility]) Body height 60 [in_i] 60 [in_i] [facility] ([facility]) 5'0" Body weight 177.00 [lb_av] 177.00 [lb_av] [facility] ([facility]) Body mass index (BMI) [Ratio] 34.6 kg/m2 34.6 k g/m2 [facility] ([facility]) Systolic blood pressure 122 mm[Hg] 122 mm[Hg] M [facility] ([facility]) Diastolic blood pressure 78 mm[Hg] 78 mm[Hg] [facility] ([facility]) Heart rate 94 /min 94 /min [facility] ([facility]) Oxygen saturation in Arterial blood by Pulse oximetry 953 % 953 % [facility] ([facility]) Body height 60 [in_i] 60 [in_i] [facility] ([facility]) 5'0" Body weight 177.00 [lb_av] 177.00 [lb_av] [facility] Body mass index (BMI) [Ratio] 34.6 kg/m2 34.6 k g/m2 [facility] ([facility]) [place] body weight 100 [lb_av] 100 [lb_av] [facility] Body weight 80.287 kg 80.287 kg [facility] ([facility]) Body surface area Derived from formula 1.77 m2 1.77 m2 [facility] ([facility]) Diastolic blood pressure 64 mm[Hg] 64 mm[Hg] [facility] (Osm[facility]) Oxygen saturation in Arterial blood by Pulse oximetry 99 % 99 % [facility] (Osm[facility] Al[facility]) Body weight 181.00 [lb_av] 181.00 [lb_av] [facility] ([facility]sm[facility] Al[facility]) Body height 60 [in_i] 60 [in_i] [facility] ([facility]sm[facility]) 5'0" Body mass index (BMI) [Ratio] 35.3 kg/m2 35.3 k g/m2 [facility] (Osm[facility] Al[facility]) Body temperature 97.5 [degF] 97.5 [degF] [facility] (Osmel Alvarez [facility]) Systolic blood pressure 98 mm[Hg] 98 mm[Hg] [facility] Heart rate 69 /min 69 /min [facility] (Osmel Alvarez [facility]) Heart rate 70 /min 70 /min [facility] ([facility]) Systolic blood pressure 133 mm[Hg] 133 mm[Hg] [facility] Respiratory rate 18 /min 18 /min [facility] Body temperature 95.5 [degF] 95.5 [degF] [facility] ([facility]) Body weight 185.00 [lb_av] 185.00 [lb_av] [facility] ([facility]) Body mass index (BMI) [Ratio] 36.1 kg/m2 36.1 k g/m2 [facility] ([facility]) Diastolic blood pressure 83 mm[Hg] 83 mm[Hg] [facility] ([facility]) Oxygen saturation in Arterial blood by Pulse oximetry 100 % 100 % [facility] ([facility]) Body height 60 [in_i] 60 [in_i] [facility] ([facility]) 5'0" Diastolic blood pressure 80 mm[Hg] [...] MD) Heart rate 73 /min 73 /min [facility] (Osmel Alvarez [facility]) Oxygen saturation in Arterial blood by Pulse oximetry 99 % 99 % [facility] (Osmel Alvarez [facility]) 2l Body height 60 [in_i] 60 [in_i] [facility] ([facility]) 5'0" Body weight 192.00 [lb_av] 192.00 [lb_av] [facility] Body mass index (BMI) [Ratio] 37.5 kg/m2 37.5 k g/m2 [facility] ([facility]) [place] body weight 100 [lb_av] 100 [lb_av] [facility] Body weight 87.091 kg 87.091 kg [facility] ([facility]) ID Date Data Source [id number] 08/09/2021 08:14:13 AM EDT [facility] Name Value Range Interpretation Code Description Data Source(s) WEIGHT RECORDED 164.30 pounds 164.30 pounds [facility] Height 60 Inches 060 Inches [facility] ID Date Data Source [id number] 05/18/2021 11:18:37 AM EDT [facility] Name Value Range Interpretation Code Description Data Source(s) WEIGHT RECORDED 179.90 pounds 179.90 pounds [facility] Height 60 Inches 060 Inches [facility] ID Date Data Source [id number] 12/27/2020 10:47:31 AM [facility] Name Value Range Interpretation Code Description Data Source(s) WEIGHT RECORDED 186.00 pounds 186.00 pounds [facility] Height 60 Inches 060 Inches [facility] ID Date Data Source [id number] 03/26/2021 09:46:56 AM EDT [facility] Name Value Range Interpretation Code Description Data Source(s) WEIGHT RECORDED 183.40 pounds 183.40 pounds [facility] Height 60 Inches 060 Inches [facility] ID Date Data Source [id number] 10/05/2020 10:18:21 AM [facility] Name Value Range Interpretation Code Description Data Source(s) WEIGHT RECORDED 188.20 pounds 188.20 pounds [facility] Height 60 Inches 060 Inches [facility] ID Date Data Source [id number] 08/23/2020 09:36:26 AM EDT [facility] Name Value Range Interpretation Code Description Data Source(s) WEIGHT RECORDED 194.00 pounds 194.00 pounds [facility] Height 60 Inches 060 Inches [facility] Patient Treatment Plan of Care Planned Activity Planned Date Details Description Data Source (s) normal saline flush 0.9 % injection 3 mL 08/22/2021 02:00:[address] [facility] Albuterol 0.833 MG/ML / Ipratropium [place] 0.167 MG/M L Inhalant Solution 08/22/2021 11:05:[address] [facility] 10 ML Atropine Sulfate 0.1 MG/ML Prefilled Syringe 08/22/2021 11 :05:[address] [facility] normal saline flush 0.9 % injection 3 mL 08/22/2021 08:00:[address] [facility] normal saline flush 0.9 % injection 3 mL 08/22/2021 08:00:[address] [facility]
--- NOTE | 2021-08-25 14:40 | REP ---
INDICATION: DYSPNEA/COUGH. COMPARISON: 08/01/2021 the latest prior also portable FINDINGS: The technique utilized in obtaining the radiograph has magnified the cardiac silhouette and accentuated the interstitial markings. Once again, there is complete opacification of the left lung field status quo. The right lung is unchanged. There is chronic CP angle blunting. The tip of the Medi[employer] device remains in the superior vena cava. There is no change in the osseous structures. IMPRESSION: No change from the prior exam. Findings as described above. <Electronically signed by Pedro Pablo Simmons > 08/25/21 [id number]
[2021-08-25 14:41] LABS: MONO # 2.2 10^3/uL (0.0-0.8)
--- NOTE | 2021-08-25 14:45 | REP ---
INDICATION: L calf pain. COMPARISON: None. FINDINGS: There are 0 images in the PACS system to review IMPRESSION: 0 images available to review. Please resend exam. <Electronically signed by Pedro Pablo Simmons > 08/25/21 [id number]
[2021-08-25 14:54] LABS: ALBUMIN 2.6 GM/DL (3.2-5.2); ALT/SGPT 17 U/L (12-78); BILIRUBIN,TOTAL 0.3 MG/DL (0.2-1.0); BLOOD UREA NITROGEN 15 MG/DL (7-18); CALCIUM LEVEL 8.4 MG/DL (8.5-10.1); CARBON DIOXIDE LEVEL 32 MEQ/L (21-32); CHLORIDE LEVEL 101 MEQ/L (98-107); CK-MB VALUE MASS < 1.0 NG/ML (<3.6); CPK CREATINE PHOSPHOKINASE 41 U/L (26-192); GLOMERULAR FILTRATION RATE 41.4 (>51); GLUCOSE, FASTING 90 MG/DL (70-100); MB/CK RELATIVE INDEX 2.44 (< OR =4); POTASSIUM SERUM 4.2 MEQ/L (3.5-5.1); SODIUM LEVEL 138 MEQ/L (136-145); TOTAL PROTEIN 6.6 GM/DL (6.4-8.2); TROPONIN I 1.22 NG/ML (< 0.10)
[2021-08-25] MEDS ORDERED: ISOVUE-370 76% 100ML VIAL As Ordered ONE (15:39)
--- NOTE | 2021-08-25 16:25 | REP ---
INDICATION: SOB/elevated D dimer COMPARISON: 08/03/2021 a noncontrast enhanced examination from an outside institution TECHNIQUE: CT angiography of the chest after the intravenous administration of 75 cc Isovue 370. FINDINGS: There is excellent visualization of the pulmonary arterial vasculature. There are no focal filling defects present that would be considered consistent with acute pulmonary emboli. There is a slight pericardial effusion. There is a slight left pleural effusion. The imaged upper abdomen is within normal limits. The imaged osseous structures shows a grade 3 T9 vertebral body compression fracture which is unchanged from the prior exam. Evaluation of the lung patterson shows complete opacification of the left lung. This has worsened from the prior exam. Only minimal air bronchograms are seen in the left upper lobe region. The right lung is hypoexpanded which crowds the vascularity. There is an asymmetric density in the right lower lobe which is unchanged. There is a right paraspinal soft tissue density which is unchanged. IMPRESSION: 1. There is no evidence of a pulmonary embolism. 2. Complete opacification of the left lung. 3. Other findings as described above. <Electronically signed by Pedro Pablo Simmons > 08/25/21 [id number]
[2021-08-25] MEDS ORDERED: ELIQ5TAB PO (17:43)
[2021-08-25] MEDS ORDERED: ACETAMINOPHEN TAB 650MG DOSE (2X325MG) PO PRN (18:15)
[2021-08-25] MEDS ORDERED: ALBUTEROL SULFATE 2.5 MG/0.5 ML INH NEB SOLN NEB PRN (18:15)
--- OUTSIDE RECORDS SUMMARY | 2021-08-25 18:49 | CCD ---
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 Care Mutual Fund Accountant Name Role Phone USMAN, F TADEO DO Unavailable Unavailable USMAN, F TADEO DO Unavailable Unavailable USMNA, F TADEO DO Unavailable Unavailable USMAN, F [...] Hunter MD Unavailable Unavailable Regine, H Gail DRUMS TEACHER Unavailable Unavailable Regine, H Gail DRUMS TEACHER Unavailable Unavailable Regine, H Gail DRUMS TEACHER Unavailable Unavailable Regine, H Gail DRUMS TEACHER Unavailable Unavailable Regine, H Gail DRUMS TEACHER Unavailable Unavailable Regine, H Gail DRUMS TEACHER Unavailable Unavailable Regine, H Gail DRUMS TEACHER Unavailable Unavailable Regine, H Gail DRUMS TEACHER Unavailable Unavailable Regine, H Gail DRUMS TEACHER Unavailable Unavailable Regine, H Gail DRUMS TEACHER Unavailable Unavailable Regine, H Gail DRUMS TEACHER Unavailable Unavailable Regine, H Gail DRUMS TEACHER Unavailable Unavailable Regine, H Gail DRUMS TEACHER Unavailable Unavailable Regine, H Gail DRUMS TEACHER Unavailable Unavailable Regine, H Gail DRUMS TEACHER Unavailable Unavailable Regine, H Gail DRUMS TEACHER Unavailable Unavailable Regine, H Gail DRUMS TEACHER Unavailable Unavailable Regine, H Gail DRUMS TEACHER Unavailable Unavailable Regine, H Gail DRUMS TEACHER Unavailable Unavailable Regine, H Gail DRUMS TEACHER Unavailable Unavailable Regine, H Gail DRUMS TEACHER Unavailable Unavailable Regine, H Gail DRUMS TEACHER Unavailable Unavailable Regine, H Gail DRUMS TEACHER Unavailable Unavailable Regine, H Gail DRUMS TEACHER Unavailable Unavailable Regine, H Gail DRUMS TEACHER Unavailable Unavailable Regine, H Gail DRUMS TEACHER Unavailable Unavailable Regine, H Gail DRUMS TEACHER Unavailable Unavailable Regine, H Gail DRUMS TEACHER Unavailable Unavailable Regine, H Gail DRUMS TEACHER Unavailable Unavailable Regine, H Gail DRUMS TEACHER Unavailable Unavailable Regine, H Gail DRUMS TEACHER Unavailable Unavailable Regine, H Gail DRUMS TEACHER Unavailable Unavailable Regine, H Gail DRUMS TEACHER Unavailable Unavailable Regine, H Gail DRUMS TEACHER Unavailable Unavailable Regine, H Gail DRUMS TEACHER Unavailable Unavailable Regine, H Gail DRUMS TEACHER Unavailable Unavailable Regine, H Gail DRUMS TEACHER Unavailable Unavailable Regine, H Gail DRUMS TEACHER Unavailable Unavailable Regine, H Gail DRUMS TEACHER Unavailable Unavailable Regine, H Gail DRUMS TEACHER Unavailable Unavailable Regine, H Gail DRUMS TEACHER Unavailable Unavailable Regine, H Gail DRUMS TEACHER Unavailable Unavailable Regine, H Gail DRUMS TEACHER Unavailable Unavailable Regine, H Gail DRUMS TEACHER Unavailable Unavailable Regine, H Gail DRUMS TEACHER Unavailable Unavailable Regine, H Gail DRUMS TEACHER Unavailable Unavailable Regine, H Gail DRUMS TEACHER Unavailable Unavailable Regine, H Gail DRUMS TEACHER Unavailable Unavailable Regine, H Gail DRUMS TEACHER Unavailable Unavailable Regine, H Gail DRUMS TEACHER Unavailable Unavailable Regine, H Gail DRUMS TEACHER Unavailable Unavailable Regine, H Gail DRUMS TEACHER Unavailable Unavailable Regine, H Gail DRUMS TEACHER Unavailable Unavailable Regine, H Gail DRUMS TEACHER Unavailable Unavailable Regine, H Gail DRUMS TEACHER Unavailable Unavailable Regine, H Gail DRUMS TEACHER Unavailable Unavailable Regine, H Gail DRUMS TEACHER Unavailable Unavailable Regine, H Gail DRUMS TEACHER Unavailable Unavailable Regine, H Gail DRUMS TEACHER Unavailable Unavailable Rory Gomez MD Unavailable Unavailable [...] ARNOLD, P HARINDER MD Unavailable Unavailable MELANY, [id number] K. WAJEEHA DO Unavailable Unavail able MELANY, [id number] K. WAJEEHA DO Unavailable Unavail able MELANY, [id number] K. WAJEEHA DO Unavailable Unavail able MELANY, [id number] K. WAJEEHA DO Unavailable Unavail able MELANY, [id number] K. WAJEEHA DO Unavailable Unavail able Ruddy [...] Unavailable Unavailable SANDIRuddy FRYE MD Unavailable Unavailable [place] Falanga, A Evelyn LABORER [employer] Unavailable Unavailable Greg Falanga, A Evelyn LABORER [employer] Unavailable Unavailable [place] Falanga, A Evelyn LABORER [employer] FARM Unavailable Unavailable [place] Falanga, A Evelyn LABORER [employer]ARM Unavailable Unavailable Greg Falanga, A Evelyn LABORER [employer] Unavailable Unavailable [place] Falanga, A Evelyn LABORER [employer] FARM Unavailable Unavailable [place] Falanga, A Evelyn LABORER [employer]ARM Unavailable Unavailable Greg Falanga, A Evelyn LABORER [employer]ARM Unavailable Unavailable [place] Falanga, A Evelyn LABORER [employer] FARM Unavailable Unavailable [place] Falanga, A Evelyn LABORER PUL[employer] FARM Unavailable Unavailable Greg Falanga, A Evelyn LABORER [employer] FARM Unavailable Unavailable Greg Falanga, A Evelyn LABORER [employer] FARM Unavailable Unavailable [place] Falanga, A Evelyn LABORER [employer]ARM Unavailable Unavailable Greg Falanga, A Evelyn LABORER [employer] Unavailable Unavailable Greg Falanga, A Evelyn LABORER [employer]ARM Unavailable Unavailable Greg Falanga, A Evelyn LABORER [employer]ARM Unavailable Unavailable Greg Falanga, A Evelyn LABORER [employer] Unavailable Unavailable [place] Falanga, A Evelyn LABORER [employer] Unavailable Unavailable Greg Falanga, A Evelyn LABORER [employer] Unavailable Unavailable [place] Falanga, A Evelyn LAB[employer]ER [employer] Unavailable Unavailable Greg Falanga, A Evelyn LABORER [employer] Unavailable Unavailable [place] Falanga, A Evelyn LABORER [employer] Unavailable Unavailable [place] Falanga, A Evelyn LABORER [employer] Unavailable Unavailable [place] Falanga, A Evelyn LAB[employer]ER [employer] Unavailable Unavailable Greg Falanga, A Evelyn LABORER [employer] Unavailable Unavailable Greg Falanga, A Veelyn LABORER [employer] Unavailable Unavailable Greg Falanga, A Evelyn LAB[employer]ER [employer] Unavailable Unavailable [place] Falanga, A Evelyn LABORER [employer] Unavailable Unavailable [place] Falanga, A Evelyn [employer] Unavailable Unavailable [facility], [facility] Unavailable Unavailable BEL CARLISLE MD Unavailable Unavailable BEL CARLISLE MD Unavailable Unavailable BEL CARLISLE MD Unavailable Unavailable BEL CARLISLE MD Unavailable Unavailable BEL CARLISLE MD Unavailable Unavailable BEL CARLISLE MD Unavailable Unavailable BEL CARLISLE MD Unavailable Unavailable BEL CARLISLE MD Unavailable Unavailable BEL CARLISLE MD Unavailable Unavailable BEL CARLISLE MD Unavailable Unavailable BEL CARLISLE MD Unavailable Unavailable BLE CARLISLE MD Unavailable Unavailable Quezada, Keara Cristin [...] TURRIN, MARIA T Unavailable Unavailable PARNES, Z ROXEI MD Unavailable Unavailable PARNES, Z ROXIE MD [...] ROXIE MD Unavailable Unavailable Regine, H Gail DRUMS TEACHER Unavailable Unavailable Regine, H Gail DRUMS TEACHER Unavailable Unavailable Regine, H Gail DRUMS TEACHER Unavailable Unavailable Regine, H Gail DRUMS TEACHER Unavailable Unavailable Regine, H Gail DRUMS TEACHER Unavailable Unavailable Regine, H Gail DRUMS TEACHER Unavailable Unavailable Regine, H Gail DRUMS TEACHER Unavailable Unavailable Regine, H Gail DRUMS TEACHER Unavailable Unavailable Regine, H Gail DRUMS TEACHER Unavailable Unavailable Regine, H Gail DRUMS TEACHER Unavailable Unavailable Regine, H Gail DRUMS TEACHER Unavailable Unavailable Regine, H Gail DRUMS TEACHER Unavailable Unavailable Regine, H Gail DRUMS TEACHER Unavailable Unavailable Regine, H Gail DRUMS TEACHER Unavailable Unavailable Regine, H Gail DRUMS TEACHER Unavailable Unavailable Regine, H Gail DRUMS TEACHER Unavailable Unavailable Regine, H Gail DRUMS TEACHER Unavailable Unavailable Regine, H Gail DRUMS TEACHER Unavailable Unavailable Regine, H Gail DRUMS TEACHER Unavailable Unavailable Regine, H Gail DRUMS TEACHER Unavailable Unavailable Regine, H Gail DRUMS TEACHER Unavailable Unavailable Regine, H Gail DRUMS TEACHER Unavailable Unavailable Regine, H Gail DRUMS TEACHER Unavailable Unavailable Regine, H Gail DRUMS TEACHER Unavailable Unavailable Regine, H Gail DRUMS TEACHER Unavailable Unavailable Regine, H Gail DRUMS TEACHER Unavailable Unavailable Regine, H Gail DRUMS TEACHER Unavailable Unavailable Regine, H Gail DRUMS TEACHER Unavailable Unavailable Regine, H Gail DRUMS TEACHER Unavailable Unavailable Regine, H Gail DRUMS TEACHER Unavailable Unavailable Regine, H Gail DRUMS TEACHER Unavailable Unavailable Regine, H Gail DRUMS TEACHER Unavailable Unavailable Regine, H Gail DRUMS TEACHER Unavailable Unavailable Regine, H Gail DRUMS TEACHER Unavailable Unavailable Regine, H Gail DRUMS TEACHER Unavailable Unavailable Regine, H Gail DRUMS TEACHER Unavailable Unavailable Regine, H Gail DRUMS TEACHER Unavailable Unavailable Regine, H Gail DRUMS TEACHER Unavailable Unavailable Regine, H Gail DRUMS TEACHER Unavailable Unavailable Regine, H Gail DRUMS TEACHER Unavailable Unavailable Regine, H Gail DRUMS TEACHER Unavailable Unavailable Regine, H Gail DRUMS TEACHER Unavailable Unavailable Regine, H Gail DRUMS TEACHER Unavailable Unavailable Regine, H Gail DRUMS TEACHER Unavailable Unavailable Regine, H Gail DRUMS TEACHER Unavailable Unavailable Regine, H Gail DRUMS TEACHER Unavailable Unavailable Regine, H Gail DRUMS TEACHER Unavailable Unavailable Regine, H Gail DRUMS TEACHER Unavailable Unavailable Regine, H Gail DRUMS TEACHER Unavailable Unavailable Regine, H Gail DRUMS TEACHER Unavailable Unavailable Regine, H Gail DRUMS TEACHER Unavailable Unavailable Regine, H Gail DRUMS TEACHER Unavailable Unavailable Regine, H Gail DRUMS TEACHER Unavailable Unavailable Regine, H Gail DRUMS TEACHER Unavailable Unavailable Regine, H Gail DRUMS TEACHER Unavailable Unavailable Regine, H Gail DRUMS TEACHER Unavailable Unavailable Regine, H Gail DRUMS TEACHER Unavailable Unavailable Regine, H Gail DRUMS TEACHER Unavailable Unavailable Regine, H Gail DRUMS TEACHER Unavailable Unavailable Arlyn Francis PH.D., M.D. Unavailable [...] MAQBOOL OSMEL MD Unavailable Unavailable KIM, MAQBOOL OSEML MD Unavailable Unavailable KIM, MAQBOOL OSMEL MD [...] Jones MD Unavailable Unavaila ble Migeed, Berny Joens MD Unavailable Unavaila ble Migeed, Berny Jones [...] Unavailable Abriss, Abiodun Hernandez MD Unavailable Unavailable MigeedBenry MD Unavailable Unavaila ble MigeedBerny MD Unavailable [...] Unavaila ble MigeedBerny MD Unavailable Unavaila ble MigeedBreny MD Unavailable Unavaila ble MigeedBerny MD Unavailable [...] Unavailable Unavailable Darwin Loaiza MD Unavailable Unavailable Dawrin Loaiza MD Unavailable Unavailable Darwin Loaiza MD [...] Unavailable Unavailable Darwin Loaiza MD Unavailable Unavailable Dariwn Loaiza MD Unavailable Unavailable Darwin Loaiza MD [...] is protected by Article 27-F of the [facility] Public Health law. If you continue you may have access to information: Regarding HIV / AIDS; Provided by facilities licensed or operated by the [facility] Office of Mental Health; or Provided by the [facility] Office for People With Developmental Disabilities. If such information is present, then the following [facility] mandated warning applies: This information has [...] law may result in a fine or alf sentence or both. A general authorization for the release of medical or other information is NOT sufficient authorization for further disc losure. Allergies and Adverse Reactions Type Description Substance Reaction Status Data Source(s ) Propensity to adverse reactions PENICILLINS Penicillins Rash Low Ac tive [facility] Low Propensity to adverse reactions OTHER Other Anaphylaxis Hig h Active [facility] High Propensity to adverse reactions IODINATED DIAGNOSTIC AGENTS Iodinated Diagnostic Agents Palpitations Low Active [facility] Low Food allergy SEAFOOD SEAFOOD ANAPHYLAXIS HIVES [facility] Propensity to adverse reactions PENICILLINS (CLASS) PENICILLINS (CLAS S) RASH [facility] Family History Family Member Name Family Member Gender Family Member Status Date o f Status Description Data Source(s) Unknown Male Problem [facility] ([facility]) () - age 49 Unknown Unknown Problem [facility] ([facility]) Unknown Unknown Problem [facility] ([facility], ) Unknown Unknown Problem [facility] ([facility]) Encounters Encounter Providers Location Date Indications Data Source(s ) H Attender: Karen Vu MDAdmitter: Karen larry MD [id number] 08/22/2021 06:43:00 AM EDT - 08/22/2021 04:06:00 PM EDT [facility] Patient discharged. Outpatient Attender: Karen Vu MDReferrer: Karen [facility] 08/17/2021 09:23:07 AM EDT - 08/17/2021 10:57:34 AM EDT [facility] Outpatient Referrer: Karen ROBERTO.PAT 09:06:03 AM EDT - 08/17/2021 09:06:08 AM EDT [facility] Outpatient Attender: Cesar Francis PH.D., M.D. Alysia/Lucio/Nasima lima/Rhys 08/16/2021 09:45:00 AM EDT [facility] ([facility] ) Outpatient Attender: OSMEL ALVAREZ MD [facility] 08/13 02:00:00 PM EDT [facility] ([facility]) Inpatient Attender: OSMEL ALVAREZ MDAtt jose alfredo: MARIA T GALLOWAYConsultant: Gail Reyes DRUMS TEACHER 08/01/2021 06:43:00 AM EDT - 08/05/2021 03:40:00 PM EDT [facility] Patient discharged. Emergency Attender: Rory Gomez MDConsultant: Gail Reyes DRUMS TEACHER 07/31/2021 09:35:00 AM EDT - 07/31/2021 11:50:00 AM EDT [facility] Patient discharged. Outpatient Attender: Ashley Hatfield/Lucio/Sai/Kip geller 07/20/2021 02:00:00 PM EDT [facility] ([facility], ) Outpatient Attender: OSMEL ALVAREZ MD [facility] 07/05 02:45:00 PM EDT [facility] ([facility]) Emergency Attender: Rory Gomez MDConsultant: Gail Reyes NP 06/29/2021 10:49:00 AM EDT - 06/29/2021 02:40:00 PM EDT [facility] Patient discharged. Outpatient Attender: Cesar Francis PH.D., M.D. Alysia/Lucio/Nasima lima/Rhys 06/27/2021 09:15:00 AM EDT [facility] ([facility]) Outpatient Attender: HUGH Eduardo/Lucio/Sai/Rhys 06/26/2021 11:00:00 AM EDT [facility] ([facility]) Outpatient<td ID="encounterTypeDescripti onID0">8 Month Follow-Up</td><td>Coby Larry DO</td><td>Cesar Hadley MD [facility]</td><td>06/15/2021</td><td>1:56PM</td><td>10/05/2020 11:59PM</td><td> <content ID="encounterDiagnosisID0-0">Cataract Senile Nuclear</content>, <content ID="encounterDiagnosisID0-1">Dry Eye Syndrome</content>, <content ID="encounterDiagnosisID0-2">Borderline Glaucoma Open Angle with Borderline Findings Both Eyes</content>, <content ID="encounterDiagnosisID0-3">Vitreous Disorders Degeneration</content></td> Attender: COBY Lawler MD [facility] 06/15/2021 01:56:00 PM EDT - 10/05/2020 11:59:00 PM ES T Cataract Senile NuclearDry Eye SyndromeVitreous Disorders DegenerationBorderline Glaucoma Open Angle with Borderline Findings Both Eyes CJ (Cesar Barrow MD [facility]) Cataract Senile Nuclear Dry Eye Syndrome Vitreous Disorders Degeneration 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 Findings Both Eyes Outpatient Attender: HUGH Eduardo/Lucio/Sai/Reindl 06/12/2021 11:30:00 AM EDT [facility] ([facility]) Outpatient Attender: BERNY VUConsultant: Gail Reyes NP 06/11/2021 08:58:00 AM EDT - 06/11/2021 09:58:00 AM EDT [facility] Outpatient Attender: OSMEL ALVAREZ MDConsultant: Gail Vicente 06/04/2021 02:51:00 PM EDT - 06/04/2021 03:51:00 PM EDT [facility] Outpatient Attender: OSMEL ALVAREZ MD [facility] 05/31 02:15:00 PM EDT [facility] ([facility]) Outpatient Referrer: Karen Vu MD 05/29/2021 02:52:2 6 PM EDT [facility] Outpatient Attender: Karen Vu MD [facility] 05/24/2021 02:45:00 PM EDT [facility] ([facility]) Outpatient Attender: HARINDER STEEL MDConsultant: Gail Garces NP 05/10/2021 08:52:00 AM EDT - 05/10/2021 09:52:00 AM EDT [facility] Emergency Attender: GLORIA SCHNEIDER MDConsultant: Nicole Reyes DRUMS TEACHER 05/01/2021 08:44:00 PM EDT - 05/02/2021 01:45:00 AM EDT [facility] Patient discharged. Outpatient Attender: OSMEL ALVAREZ MD [facility] 04/30 02:45:00 PM EDT [facility] ([facility]) Outpatient Attender: OSMEL ALVAREZ MDConsultant: Gail Daniels P 04/25/2021 12:40:06 PM EDT [facility] Emergency Attender: TADEO RITCHIE DOConsultant: Gail Daniels P 04/21/2021 11:41:00 AM EDT - 04/21/2021 03:07:00 PM EDT [facility] Patient discharged. Outpatient Attender: OSMEL ALVAREZ MDAtt jose alfredo: GLORIA SCHNEIDER MDConsultant: Gail Reyes NP 04/17/2021 09:27:00 PM EDT - 04/20/2021 01:00:00 PM EDT [facility] Patient discharged. Emergency Attender: GLORIA SCHNEIDER MDConsultant: Nicole Reyes NP 04/17/2021 06:22:00 PM EDT - 04/17/2021 09:02:00 PM EDT [facility] Patient discharged. Outpatient Attender: HUGH Eduardo/Lucio/Sai/Rhys 04/17/2021 01:30:00 PM EDT [facility] ([facility], ) Outpatient Attender: OSMEL ALVAREZ MDConsultant: Gail Daniels P 04/11/2021 09:33:00 AM EDT - 04/11/2021 10:33:00 AM EDT [facility] Emergency Attender: GLORIA SCHNEIDER MDConsultant: Nicole Reyes NP 04/01/2021 02:22:00 PM EDT - 04/01/2021 04:50:00 PM EDT [facility] Patient discharged. Outpatient Attender: OSMEL ALVAREZ MD [facility] 03/21 11:15:00 AM EDT [facility] ([facility]) Outpatient Attender: OSMEL ALVAREZ MDConsultant: Gail Daniels P 03/21/2021 08:15:00 AM EDT - 03/21/2021 09:15:00 AM EDT [facility] Outpatient Attender: OSMEL ALVAREZ MD [facility] 03/16 09:45:00 AM EDT [facility] ([facility]) Outpatient Attender: OSMEL ALVAREZ MDConsultant: Gail Daniels P 03/16/2021 07:51:00 AM EDT - 03/16/2021 08:51:00 AM EDT [facility] Outpatient Attender: OSMEL ALVAREZ MD [facility] 03/15 03:00:00 PM EDT [facility] ([facility]) Outpatient Attender: OSMEL ALVAREZ MD [facility] 03/13 10:00:00 AM EDT [facility] ([facility]) Outpatient Attender: OSMEL ALVAREZ MDConsultant: Gail Reyes N P 03/13/2021 08:33:00 AM EDT - 03/13/2021 09:33:00 AM EDT [facility] Outpatient Attender: OSMEL LAVAREZ MDConsultant: Gail Reyes N P 03/08/2021 11:23:00 AM EDT - 03/08/2021 12:23:00 PM T [facility] Outpatient Attender: OSMEL ALVAREZ MD [facility] 03/08 10:15:00 AM EDT [facility] ([facility]) Outpatient Attender: HUGH Eduardo/[place]/Sai/Reindl 03/01/2021 01:30:00 PM EDT [facility] ([facility] Outpatient Attender: Ashley Hatfield/[place]/Sai/Kip ndl 02/17/2021 01:23:00 AM EDT [facility] ([facility] Outpatient Attender: Ashley Hatfield/Lucio/Sai/Kip ndl 02/16/2021 01:23:00 AM EDT [facility] ([facility]) Outpatient Attender: HUGH PARNELL Alysia/[place]/Sai/Reindl 02/14/2021 01:23:00 AM EDT [facility] ([facility] Outpatient Attender: HUGH PARNELL [place]/Sai/Reindl 02/13/2021 01:23:00 AM EDT [facility] ([facility] Outpatient Attender: HUGH PARNELL [place]/Sai/Reindl 02/11/2021 01:23:00 AM EDT [facility] ([facility] Outpatient Attender: HUGH PARNELL [place]/Sai/Reindl 02/10/2021 01:23:00 AM EDT [facility] ([facility]) Outpatient Attender: HUGH WHITEHEADMANAV SCHMITZ [place]lys[place]/Sai/Reindl 02/09/2021 01:23:00 AM EDT [facility] ([facility]) Outpatient Attender: Victoriano Hatfield/[place]/Sai/R eindl 02/08/2021 01:23:00 AM EDT [facility] ([facility] Outpatient Attender: Victoriano Hatfield/[place]/Sai/R eindl 02/06/2021 01:23:00 AM EDT [facility] ([facility] Outpatient Attender: [facility] 01/31/2021 05:5 0:00 PM EDT [facility] Emergency Attender: MARIA T Hardenltant: Gail Vicente 01/31/2021 05:29:00 PM EDT - 01/31/2021 06:30:00 PM EDT [facility] Patient discharged. Outpatient Attender: HUGH PARNELL DO [place]/Sai/Reindl 01/30/2021 01:00:00 PM EDT [facility] ([facility] Outpatient Attender: OSMEL ALVAREZ MD [facility] 01/29 02:45:00 PM EDT [facility] ([facility]) Outpatient Attender: David Maldonado MD [place]lys[place]/Sai/Re indl 01/18/2021 11:15:00 AM EDT [facility] ([facility] Outpatient Attender: HUGH PARNELL DO [place]/Sai/Reindl 01/17/2021 01:00:00 PM EDT [facility] ([facility] Outpatient Attender: Ashley Hatfield/[place]/Sai/Kip ndl 12/26/2020 12:23:00 AM EST [facility] ([facility] Outpatient Attender: Ashley Hatfield/[place]/Sai/Kip ndl 12/25/2020 12:23:00 AM EST [facility] ([facility] Outpatient Attender: Ashley Hatfield/[place]/Sai/Kip ndl 12/24/2020 12:23:00 AM EST [facility] ([facility] Outpatient Attender: [facility] 12/20/2020 01:3 9:00 PM [facility] Inpatient Attender: OSMEL ALVAREZ MDAtt jose alfredo: MARIA T GALLOWAYConsultant: Gail Reyes NP 12/20/2020 01:00:00 PM EST - 12/23/2020 12:15:00 PM [facility] Patient discharged. Outpatient Attender: [id number] DAYSI MOSLEY DOConsultant : Gail Reyes NP 12/08/2020 12:28:00 PM EST - 12/08/2020 01:28:00 PM [facility] Outpatient Attender: Gail Jeffrieseferrer: Gail Reyes NP 12/04/2020 10:49:00 AM [facility] - 12/04/2020 01:30:00 PM [facility] Inpatient Attender: Evelyn rodriguez FNPAttender: Darwin REA CConsultant: Gail Reyes NP 11/24/2020 02:59:00 PM EST - 11/28/2020 02:30:00 PM [facility] Patient discharged. Outpatient Attender: [facility] 11/24/2020 11:1 5:00 AM EST [facility] Outpatient Attender: Cristin barry 11/10/2020 03:00:00 PM EST [facility] ([facility]) Outpatient Attender: OSMEL ALVAREZ MD [facility] 11/07 09:45:00 AM EST [facility] ([facility]) Outpatient Attender: [id number] SLIMEPRECIOUS CORDOVADHU DOConsultant : Gail Reyes NP 10/12/2020 08:53:00 AM EST - 10/12/2020 09:53:00 AM EST [facility] Patient discharged. <td ID="encounterTypeDescriptionID1">TRI AGE NON URGENT</td><td>Coby Larry DO</td><td>Cesar Hadley MD [facility]</td><td>10/05/2020</td><td>9:19AM</td><td>10:07AM</td><td><content ID="encounterDiagnosisID1-0">Transient Ischemic Attack (Tia)</content></td>Outpatient Attender: COBY Lawler MD [facility] 10/05/2020 09:19:00 AM EST - 10/05/2020 10:07:00 AM ES T Transient Ischemic Attack (Tia)Transient Ischemic Attack (Tia)Transient Ischemic Attack (Tia) CJ (Cesar Barrow MD [facility]) Transient Ischemic Attack (Tia) Transient Ischemic Attack (Tia) Transient Ischemic Attack (Tia) Outpatient Attender: OSMEL ALVAREZ MD [facility] 10/03 08:15:00 AM EST [facility] ([facility]) Outpatient Attender: OSMEL Jacobs jose alfredo: BEL CARLISLE MDConsultant: Gail Reyes NP 09/27/2020 05:50:00 PM EST - 09/28/2020 02:54:00 PM EST [facility] Patient discharged. Outpatient Attender: HARINDER STEEL MDConsultant: Gail Garces NP 09/05/2020 12:32:00 PM EST - 09/05/2020 01:32:00 PM EST [facility] Outpatient Attender: OSMEL ALVAREZ MD [facility] 08/29 11:30:00 AM EDT [facility] ([facility]) Outpatient Attender: HARINDER STEEL MDConsultant: Gail Garces NP 08/29/2020 09:44:00 AM EDT - 08/29/2020 10:44:00 AM EDT [facility] Outpatient Attender: OSMEL ALVAREZ MD Medical [facility] 08/22 11:15:00 AM EDT [facility] (Osmel Alvarez MD) Outpatient Attender: David Hatfield/Lucio/Sai/Re indl 08/17/2020 01:00:00 PM EDT [facility] ([facility] Outpatient Attender: OSMEL ALVAREZ MDAtt jose alfredo: ROXIE FLORES MDConsultant: Gail Reyes NP 08/15/2020 10:38:00 AM EDT - 08/15/2020 11:38:00 AM EDT [facility] Outpatient Attender: OSMEL ALVAREZ MD [facility] 08/15 09:15:00 AM EDT [facility] (Osmel Alvarez MD) Inpatient Attender: OSMEL Jacobs jose alfredo: SHAUNA JUNIOR MDConsultant: Gail Reyes NP 08/05/2020 08:23:00 PM EDT - 08/07/2020 11:37:00 AM EDT [facility] Patient discharged. Outpatient Attender: HARINDER STEEL MDConsultant: Gail Garces NP 08/01/2020 11:12:00 AM EDT - 08/01/2020 12:12:00 PM EDT [facility] Immunizations Vaccine Date Status Description Data Source(s) COVID-19 VACCINE Moderna 12/04/2020 12:00:00 AM EST completed [facility] Vaccine Series Complete: YESThis Data wa s Submitted to [facility] Via [employer]. COVID-19 VACCINE Moderna 10/30/2020 12:00:00 AM EST completed [facility] Vaccine Series Complete: NOThis Data was Submitted to [facility] [employer]. IIV3. This is one of two codes replacing CVX 15, which is being retired. 08/25/2020 12:00:00 AM EDT completed influenza vaccine, inactivated [facility] INFLUENZA VIRUS VACCINE QUADRIVAL (6 MOS AND UP)/PF 08/25/2020 12:00:00 AM EDT completed [facility] Medications Medication Brand Name Start Date Product Form Dose Route Admi nistrative Instructions Pharmacy Instructions Status Indications Reaction Description Data Source(s) normal saline flush 0.9 % injection 3 mL [id number] 08/22/2021 02:00:00 PM EDT 3 mL Intravenous active 3 mL , Intravenous, Every 8 hours (scheduled), First dose on Fri08/22/21 at 1400, PACU (only)
flush per protocol, D/C Main IV fluid if appropriate
[facility] Medication administered onsite ondansetron (ZOFRAN) injection 4 mg [id number] 08/22/2021 11:05:5 7 AM EDT 4 mg Intravenous completed 4 mg, In travenous, Once as needed, nausea, vomiting, Starting on Fri08/22/21 at 1105, For 1 dose, PACU (only)
If not given in last 4 hours
[facility] Medication administered onsite fentaNYL Citrate (PF) (SUBLIMAZE) injection 25 mcg [id number] 08/22/2021 11:05:57 AM EDT 25 ug Intravenous active 25 mcg, Intravenous, Every 5 min PRN, moderate pain (4 to 6), Starting on Fri08/22/21 at 1105, For 5 doses, PACU (only) [facility] Medication administered onsite Albuterol 0.833 MG/ML / Ipratropium Brom erin 0.167 MG/ML Inhalant Solution ipratropium-albuterol (DUO-NEB) 0.5-2.5 mg/mL nebulizer solution 3 mL ipratropium-albuterol (DUO-NEB) 0.5-2.5 mg/mL nebulizer solution 3 mL 08/22/2021 11:05:57 AM EDT 3 mL Inhalation active 3 mL, Inhalation, Once as needed, shortness of breath, Starting on Fri08/22/21 at 1105, For 1 dose, PACU (only) [facility] Medication administered onsite 10 ML Atropine [...] or 0.04 mg/kg. Max of 6 doses
[facility] Medication administered onsite protamine injection [id number] 08/22/2021 10:54:14 AM EDT active As needed, Starting on Fri08/22/21 at 1054, Intra-Pro cedure [facility] Medication administered onsite 1 ML heparin sodium, porcine 1000 UNT/ML Injection hep richar (porcine) injection heparin (porcine) injection 08/22/2021 09:44:38 AM EDT active As needed, Starting on Fri08/22/21 at 0944, Intra-Procedure [facility] Medication administered onsite normal saline flush 0.9 % injection 3 mL [id number] 08/22/2021 08:00:00 AM EDT 3 mL Intravenous active 3 mL , Intravenous, Every 8 hours (scheduled), First dose on Fri08/22/21 at 0800, Pre-op
Rapid push positive pressure flushing shall be performed with a 10 cc normal saline syringe to check the PATENCY of a PIV site prior to any infusion therapy initiation unless resistance is met.
[facility] Medication administered onsite normal saline flush 0.9 % injection 3 mL [id number] 08/22/2021 08:00:00 AM EDT 3 mL Intravenous active 3 mL , Intravenous, Every 8 hours (scheduled), First dose on Fri08/22/21 at 0800, Pre-op
Rapid push positive pressure flushing shall be performed with a 10 cc normal saline syringe to check the PATENCY of a PIV site prior to any infusion therapy initiation unless resistance is met.
[facility] Medication administered onsite apixaban 5 MG Oral Tablet [Eliquis] Eliquis 08/13/2021 12:00:00 AM E DT ORAL active [facility] (Osmel Alvarez MD) Albuterol 0.83 MG/ML Inhalant Solution Albuterol Sulfate 0 06/26/2021 12:00:00 AM EDT active [facility] ([facility], ) 24 HR Diltiazem Hydrochloride 180 [...] 12:00: 00 AM EDT ORAL completed [facility] ([facility], ) Tobramycin 40 MG/ML Injectable Solution Tobramycin Sulfate 05/04/2021 12:00:00 AM EDT completed [facility] ([facility], ) Tobramycin 75 MG/ML Inhalant Solution Tobramycin 05/03/2021 12:00:00 AM EDT completed [facility] ([facility], ) Levofloxacin 500 MG Oral Tablet Levofloxacin 04/30/2021 12:00:00 AM E DT ORAL completed [facility] ([facility], ) dronedarone 400 MG Oral Tablet [Multaq] Multaq 04/11/2021 12:00:0 0 AM EDT ORAL active [facility] (Chantel Alvarez MD) Levofloxacin 500 MG Oral Tablet Levofloxacin 03/26/2021 12:00:00 AM E DT ORAL completed [facility] ([facility], ) ivabradine 5 MG Oral Tablet [...] Fluconazole 01/30/2021 12:00:00 AM EDT completed [facility] ([facility]) Levofloxacin 500 MG Oral Tablet Levofloxacin 01/30/2021 12:00:00 AM E DT ORAL completed [facility] ([facility]) Itraconazole 100 MG Oral Capsule Itraconazole 01/30/2021 12:00:00 AM EDT ORAL completed [facility] ([facility]) Prednisone 20 MG Oral Tablet Prednisone 01/29/2021 12:00:00 AM EDT completed [facility] (Oseml Alvarez MD) Furosemide 40 MG Oral Tablet Furosemide 01/29/2021 12:00:00 AM EDT ORAL completed [facility] (Osmel Alvarez MD) Prednisone 10 MG Oral Tablet Prednisone 01/22/2021 12:00:00 AM EDT ORAL completed [facility] ([facility]) Aspirin 81 MG Delayed Release Oral Tablet Aspirin 81 2020 12:00:00 AM EST ORAL completed [facility] (Osmel Alvarez MD) Magnesium Oxide 200 MG Oral Tablet Mag-200 12/12/2020 12:00:00 AM EST completed [facility] (Osmel Alvarez MD) doxycycline hyclate 100 MG Oral Capsule Doxycycline Hyclate 11/10/2020 12:00:00 AM EST active [facility] ([facility], [facility]) 30 ACTUAT fluticasone furoate 0.2 MG/ACT [...] Release Oral Tablet CJ (Cesar Barrow MD [facility]) 30 ACTUAT fluticasone furoate 0.1 MG/ACT UAT / vilanterol 0.025 MG/ACTUAT Dry Powder Inhaler [Breo] Breo Ellipta 100-25 MCG/INH Inhalation Aerosol Powder Breath Activated Breo Ellipta 100-25 MCG/INH Inhalation A erosol Powder Breath Activated 10/05/2020 12:00:00 AM EST active 30 ACTUAT fluticasone furoate 0.1 MG/ACTUAT / vilanterol 0.025 MG/ACTUAT Dry Powder Inhaler [Breo] CJ (Cesar Barrow MD [facility]) Potassium 10 mg Oral Tablet Potassium 10 mg Oral Tablet 01/2020 12:00:00 AM EST 1 active Potassium GREENWA Y (Cesar Barrow MD [facility]) Diltiazem 180 mg Oral Tablet Diltiazem 180 mg Oral Tablet 12:00:00 AM EST 1 active Diltiazem NOEMÍ Y (Cesar Barrow MD [facility]) Magnesium 1000 MG CAP Oral Capsule Magnesium 1000 MG CAP Ora l Capsule 10/05/2020 12:00:00 AM EST 1 active Magnesi um 1000 MG CAP CJ (Cesar Barrow MD [facility]) rivaroxaban 10 MG Oral Tablet [Xarelto] Xarelto 10 MG Oral Tablet Xarelto 10 MG Oral Tablet 10/05/2020 12:00:00 AM EST 1 active rivaroxaban 10 MG Oral Tablet [Xarelto] CJ (Cesar Barrow MD [facility]) Pantoprazole 40 MG Oral Tablet Pantoprazole 40 MG Oral Table t 10/05/2020 12:00:00 AM EST 1 active Pantopra zole CJ (Cesar Barrow MD [facility]) Folic Acid 0.8 MG Oral Tablet Folic Acid 800 MCG Oral Tablet Folic Acid 800 MCG Oral Tablet 10/05/2020 12:00:00 AM EST 1 active folic acid 0.8 MG Oral Tablet CJ (Cesar Barrow MD [facility]) 30 ACTUAT fluticasone furoate 0.2 MG/ACT UAT / vilanterol 0.025 MG/ACTUAT Dry Powder Inhaler [Breo] Breo Ellipta 09/13/2020 12:00:00 AM EST OR AL active [facility] ([facility], ) Potassium Chloride 10 MEQ Extended Release Oral Tablet Potassium Chloride Jennifer ER 08/15/2020 12:00:00 AM EDT ORAL completed [facility] (Osmel Alvarez MD) Furosemide 20 MG Oral Tablet Furosemide 08/15/2020 12:00:00 AM EDT active [facility] (Osmel Alvarez MD) Magnesium 500 MG Oral Capsule Magnesium 500 MG Oral Capsule 06/15/2020 12:00:00 AM EDT 1 aborted Magnesium GREENW AY (Cesar Barrow MD [facility]) 60 ACTUAT Budesonide 0.16 MG/ACTUAT / fo rmoterol fumarate 0.0045 MG/ACTUAT Metered Dose Inhaler [Symbicort] Symbicort 160-4.5 MCG/ACT Inhalation Aerosol Symbicort 160-4.5 MCG/ACT Inhalation Aerosol 06/15/2020 12:00:00 AM EDT 1 aborted 60 ACTUAT budeso nide 0.16 MG/ACTUAT / formoterol fumarate 0.0045 MG/ACTUAT Metered Dose Inhaler [Symbicort] CJ (Cesar Barrow MD [facility]) rivaroxaban 20 MG Oral Tablet [Xarelto] Xarelto 20MG O ral Tablet Xarelto 20MG Oral Tablet 06/12/2018 12:00:00 AM EDT aborte d rivaroxaban 20 MG Oral Tablet [Xarelto] CJ (Cesar Barrow MD [facility]) cetirizine hydrochloride 10 MG Oral Tabl et [Zyrtec] ZyrTEC Allergy 10MG Oral Tablet ZyrTEC Allergy 10MG Oral Tablet 02/03/2017 12:00:00 AM EDT 1 aborted cetirizine hydrochloride 10 MG O ral Tablet [Zyrtec] CJ (Cesar Barrow MD [facility]) pantoprazole 20 MG Delayed Release Oral Tablet Pantoprazole Sodium 20MG Oral Tablet, enteric coated Pantoprazole Sodium 20MG Oral Tablet, enteric coated 02/03/2017 12:00:00 AM EDT 1 aborted pantoprazole 20 MG Delayed Release Oral Tablet ORFORD (Cesar Barrow MD [facility]) Insurance Providers Payer name Policy type / Coverage type Policy ID Covered constitution party ID Covered constitution party's relationship to panchal Policy Panchal Plan Information [employer] [place] 306/806 [id number] SP [id number] [employer] [place] 306/806 [id number] SP [id number] EXCELLUS C [id number] Self [id number] [employer] [place] Individual Policy 0 [id number] Self 0 [employer] [place] Individual Policy 0 [id number] Self 0 [employer] [place] Individual Policy 0 [id number] Self 0 [employer] [place] Individual Policy 0 [id number] Self 0 [employer] [place] Individual Policy 0 [id number] Self 0 [employer] [place] Individual Policy 0 [id number] Self 0 [employer] [place] Individual Policy 0 [id number] Self 0 [employer] [place] Individual Policy 0 [id number] Self 0 [employer] [place] Individual Policy 0 [id number] Self 0 [place] P[place] 302/307 [id number] SP [id number] EXCELLUS C [id number] Self [id number] [employer] [place] PPO 302/307 [id number] SP [id number] [employer] [place] Individual Policy 0 [id number] Self 0 [place] PPO 302/307 [id number] SP [id number] [employer] [place] Individual Policy 0 [id number] Self 0 [employer] [place] Individual Policy 0 [id number] Self 0 [employer] [place] Individual Policy 0 [id number] Self 0 [employer] [place] Individual Policy 0 [id number] Self 0 [employer] [place] Individual Policy 0 [id number] Self 0 [employer] [place] Individual Policy 0 [id number] Self 0 [employer] [place] Individual Policy 0 [id number] Self 0 [employer] [place] Individual Policy 0 [id number] Self 0 [employer] [place] Individual Policy 0 [id number] Self 0 [employer] [place] Individual Policy 0 [id number] Self 0 [employer] [place] Individual Policy 0 [id number] Self 0 [employer] [place] Individual Policy 0 [id number] Self 0 [employer] [place] Individual Policy 0 [id number] Self 0 [employer] [place] Individual Policy 0 [id number] Self 0 [employer] [place] Individual Policy 0 [id number] Self 0 [employer] [place] Individual Policy 0 [id number] Self 0 [employer] [place] Individual Policy 0 [id number] Self 0 [employer] [place] Individual Policy 0 [id number] Self 0 [employer] [place] Individual Policy 0 [id number] Self 0 [employer] [place] Individual Policy 0 [id number] Self 0 [employer] [place] Individual Policy 0 [id number] Self 0 [employer] [place] Individual Policy 0 [id number] Self 0 [employer] [place] Individual Policy 0 [id number] Self 0 [employer] [place] Individual Policy 0 [id number] Self 0 [employer] [place] Individual Policy 0 [id number] Self 0 BCBS of [facility] Individual Policy 0 [id number] Self 0 BCBS of [facility] [place] Individual Policy 0 [id number] Self 0 BCBS of [facility] [place] Individual Policy 0 [id number] Self 0 BCBS of [facility] [place] Individual Policy 0 [id number] Self 0 BCBS of [facility] [place] Individual Policy 0 [id number] Self 0 BCBS of [facility] [place] Individual Policy 0 [id number] Self 0 BCBS of [facility] [place] Individual Policy 0 [id number] Self 0 EXCELLUS BCBS [id number] [id number] BCBS 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[employer]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 [id number] [id number] BCBS of [facility] Other 0 [id number] F amily Dependent Jose Solomon 0 EXCELLUS BCBS [id number] BCBS of [facility] Other 0 [id number] F amily Dependent Jose Solomon 0 BCBS of [facility] Other 0 [id number] F amily Dependent Jose Solomon 0 BCBS of [facility] Other 0 [id number] F amily Dependent Jose Solomon 0 MEDICARE [id number] Victorina [id number] MEDICARE [id number] INSURANCE COVID-19 COVID Victorina C OVID INSURANCE COVID-19 [id number] BCBS [employer]ER[employer] EM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 [id number] [id number] MEDICARE PART A -I/P [id number] 18 [id number] BLUE CROSS BLUE SHIELD -I/P [id number] 01 [id number] MEDICARE -RECURRING [id number] 18 [id number] [employer]UE [employer]OSS BLUE SHIELD FEDERAL-RECURRING [id number] 01 [id number] MEDICARE PART A -O/P [id number] 18 [id number] BLUE CROSS BLUE SHIELD FEDERAL -O/P [id number] 01 [id number] BCBS FEDERAL EM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 [id number] Medicare Part B of [facility] Other 0 [id number] Self 0 Medicare Part B of [facility] Other 0 [id number] Self 0 BLUE CROSS BLUE SHIELD -PHYSICIAN [id number] BLUE CROSS BLUE SHIELD FEDERAL -PHYS [id number] MEDICARE C [id number] S [id number] BS [place] FEDERAL B [id number] P [id number] Medicare Part B of [facility] Other 0 [id number] Self 0 BLUE CROSS BLUE SHIELD-O/P [id number] BLUE CROSS BLUE SHIELD -O/P [id number] 01 [id number] BLUE CROSS BLUE SHIELD -O/P [id number] [facility] B [id number] S [id number] [facility] FEDERAL EM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 [id number] [facility] Other 0 [id number] Self 0 BS [place] [employer] [id number] Self [id number] BS [place] [employer] [id number] Self [id number] BS [place] [employer] [id number] Self [id number] BS [place] [employer] [id number] Self [id number] BS [place] [employer] [id number] Self [id number] [facility] Health Maintenance Organization (O) [id number] Self [id number] [facility] Health Maintenance Organization (O) [id number] Self [id number] [facility] [id number] Self V [id number] [facility] [id number] [facility] Health Maintenance Organization [place] [id number] Self [id number] [facility] Health Maintenance [facility] ([facility] [place] [id number] Self [id number] [facility] B [id number] S V [id number] BC/BS Of [facility] [id number] Self [facility] BLUE SHIELD-O/P [id number] 18 [id number] MEDICARE [id number] SP [id number] Problems, Conditions, and Diagnoses Code Display Name Description Problem Type Effective Dates Data Source(s) I48.0 Paroxysmal atrial fibrillation Paroxysmal atrial fibri llation Diagnosis 08/22/2021 06:43:00 AM EDT [facility] U07.1 COVID-19 COVID-19 Diagnosis 08/17/2021 09:06:03 AM ED T [facility] Z8673 Personal history of transien t ischemic attack (TIA), and cerebral infarction without residual deficits Personal history of transient ischemic attack (TIA), and cerebral infarction without residual deficits Diagnosis 08/01/2021 06:43:00 AM EDT [facility] I110 Hypertensive heart disease with heart fa ilure Hypertensive heart disease with heart failure Diagnosis 08/01/2021 06:43:00 AM [facility] [id number] Personal history of other venous thrombo sis and embolism Personal history of other venous thrombosis and embolism Diagnosis 08/01/2021 06:43:00 AM [facility] I509 Heart failure, unspecified Heart failure, unspecified Diagnosis 08/01/2021 06:43:00 AM [facility] Z58773 Personal history of nicotine dependence Personal history of nicotine dependence Diagnosis 08/01/2021 06:43:00 AM [facility] A47100 Personal history of other malignant neop lasm of bronchus and lung Personal history of other malignant neoplasm of bronchus and lung Diagnosis 08/01/2021 06:43:00 AM [facility] D649 Anemia, unspecified Anemia, unspecified Diagnosis 0 08/01/2021 06:43:00 AM [facility] [id number] Personal history of pulmonary embolism P ersonal history of pulmonary embolism Diagnosis 08/01/2021 06:43:00 AM [facility] J449 Chronic obstructive pulmonary disease, u nspecified Chronic obstructive pulmonary disease, unspecified Diagnosis 08/01/2021 06:43:00 AM EDT [facility] C7951 Secondary malignant neoplasm of bone Secondary m alignant neoplasm of bone Diagnosis 08/01/2021 06:43:00 AM [facility] I480 Paroxysmal atrial fibrillation Paroxysmal atrial fibri llation Diagnosis 08/01/2021 06:43:00 AM [facility] 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 [facility] (current) use of anticoagulants Diagnosis 07/31/2021 09:35:00 AM [facility] C801 Malignant (primary) neoplasm, unspecifie d Malignant (primary) neoplasm, unspecified Diagnosis 07/31/2021 09:35:00 AM [facility] R0789 Other chest pain Other chest pain Diagnosis 07/31/2021 09 :35:00 AM [facility] 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 Anemia in neoplastic dise ase Diagnosis 06/29/2021 10:49:00 AM [facility] C3490 Malignant neoplasm of unspecified part o f unspecified bronchus or lung Malignant neoplasm of unspecified part of unspecified bronchus or lung Diagnosis 06/29/2021 10:49:00 AM EDT [facility] R002 Palpitations Palpitations Diagnosis 06/29/2021 10:49:00 A M EDT [facility] [id number] Encounter for preprocedural cardiovascul ar examination Encounter for preprocedural cardiovascular examination Diagnosis 06/11/2021 08:58:00 AM EDT [facility] R2242 Localized swelling, mass and lump, left lower limb Localized swelling, mass and lump, left lower limb Diagnosis 06/04/2021 02:51:00 PM EDT [facility] A09132 Pain in left hip Pain in left hip Diagnosis 05/10/2021 08 :52:00 AM EDT [facility] D24933 Pain in right hip Pain in right hip Diagnosis 05/10/2021 08:52:00 AM EDT [facility] R102 Pelvic and perineal pain Pelvic and perineal pain Diag nosis 05/10/2021 08:52:00 AM EDT [facility] Z8701 Personal history of pneumonia (recurrent ) Personal history of pneumonia (recurrent) Diagnosis 05/01/2021 08:44:00 PM EDT [facility] R63670 Personal history of malignant neoplasm o f bone Personal history of malignant neoplasm of bone Diagnosis 05/01/2021 08:44:00 PM EDT [facility] R110 Nausea Nausea Diagnosis 05/01/2021 08:44:00 PM ED T [facility] I10 Essential (primary) hypertension Essential (primary) h ypertension Diagnosis 05/01/2021 08:44:00 PM EDT [facility] E8342 Hypomagnesemia Hypomagnesemia Diagnosis 05/01/2021 08:44: 00 PM EDT [facility] J159 Unspecified bacterial pneumonia Unspecified bacterial pneumonia Diagnosis 05/01/2021 08:44:00 PM EDT [facility] R531 Weakness Weakness Diagnosis 04/26/2021 12:52:00 PM ED T [facility] C3432 Malignant neoplasm of lower lobe, left b ronchus or lung Malignant neoplasm of lower lobe, left bronchus or lung Diagnosis 04/21/2021 11:41:00 AM EDT [facility] R000 Tachycardia, unspecified Tachycardia, unspecified Diag nosis 04/21/2021 11:41:00 AM EDT [facility] Z1152 ENCOUNTER FOR SCREENING FOR COVID-19 ENCOUNTER F OR SCREENING FOR COVID-19 Diagnosis 04/17/2021 09:27:00 PM EDT [facility] K219 Gastro-esophageal reflux disease without esophagitis Gastro-esophageal reflux disease without esophagitis Diagnosis 04/17/2021 09:27:00 PM ED T [facility] I2510 Atherosclerotic heart diseas e of [place] coronary artery without angina pectoris Atherosclerotic heart disease of [place] coronary artery without angina pectoris Diagnosis 04/17/2021 09:27:00 PM EDT [facility] I4891 Unspecified atrial fibrillation Unspecified atrial fib rillation Diagnosis 04/17/2021 09:27:00 PM EDT [facility] Z6834 Body mass index [BMI] 34.0-34.9, adult B rhiannon mass index [BMI] 34.0-34.9, adult Diagnosis 04/17/2021 06:22:00 PM EDT [facility] E669 Obesity, unspecified Obesity, unspecified Diagnosis 04/17/2021 06:22:00 PM EDT [facility] E119 Type 2 diabetes mellitus without complic ations Type 2 diabetes mellitus without complications Diagnosis 04/11/2021 09:33:00 AM EDT [facility] E876 Hypokalemia Hypokalemia Diagnosis 04/01/2021 02:22:00 PM EDT [facility] E039 Hypothyroidism, unspecified Hypothyroidism, unspecifie d Diagnosis 03/16/2021 07:51:00 AM EDT [facility] R918 Other nonspecific abnormal finding of tony ng field Other nonspecific abnormal finding of lung field Diagnosis 03/13/2021 08:33:00 AM EDT [facility] N390 Urinary tract infection, site not specif ied Urinary tract infection, site not specified Diagnosis 03/08/2021 11:23:00 AM EDT [facility] [id number] CONTACT WITH AND SUSPECTED EXPOSURE TO C OVID-19 CONTACT WITH AND SUSPECTED EXPOSURE TO COVID-19 Diagnosis 01/31/2021 05:29:00 PM EDT [facility] Z9221 Personal history of antineoplastic chemo therapy Personal history of antineoplastic chemotherapy Diagnosis 01/31/2021 05:29:00 PM EDT [facility] Z7982 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 Diagnosis 01/31/2021 05:29:00 PM EDT [facility] J439 Emphysema, unspecified Emphysema, unspecified Diagnosi s 01/31/2021 05:29:00 PM EDT [facility] C3412 Malignant neoplasm of upper lobe, left b ronchus or lung Malignant neoplasm of upper lobe, left bronchus or lung Diagnosis 01/31/2021 05:29:00 PM EDT [facility] R042 Hemoptysis Hemoptysis Diagnosis 01/31/2021 05:29:00 PM ED [facility] R05 Cough Cough Diagnosis 01/31/2021 05:29:00 PM ED [facility] Z8616 PERSONAL HISTORY OF COVID-19 PERSONAL HISTORY OF COVID -19 Diagnosis 12/20/2020 01:00:00 PM [facility] J9819 Other pulmonary collapse Other pulmonary collapse Diag nosis 12/20/2020 01:00:00 PM [facility] J189 Pneumonia, unspecified organism Pneumonia, unspecified organism Diagnosis 12/20/2020 01:00:00 PM [facility] R911 Solitary pulmonary nodule Solitary pulmonary nodule Di agnosis 11/24/2020 02:59:00 PM [facility] Z9981 Dependence on supplemental oxygen Dependence on supplemental oxygen Diagnosis 11/24/2020 02:59:00 PM [facility] Z923 Personal history of irradiation Personal history of ir radiation Diagnosis 11/24/2020 02:59:00 PM [facility] J440 Chronic obstructive pulmonar y disease with (acute) lower respiratory infection Chronic obstructive pulmonary disease wi th (acute) lower respiratory infection Diagnosis 11/24/2020 02:59:00 PM [facility] J441 Chronic obstructive pulmonary disease wi th (acute) exacerbation Chronic obstructive pulmonary disease with (acute) exacerbation Diagnosis 11/24/2020 02:59:00 PM [facility] J1282 PNEUMONIA DUE TO CORONAVIRUS DISEASE 201 9 PNEUMONIA DUE TO CORONAVIRUS DISEASE 2019 Diagnosis 11/24/2020 02:59:00 PM [facility] U071 COVID-19 COVID-19 Diagnosis 11/24/2020 02:59:00 PM [facility] N281 Cyst of kidney, acquired Cyst of kidney, acquired Diag nosis 10/12/2020 08:53:00 AM [facility] N179 Acute kidney failure, unspecified Acute kidney f ailure, unspecified Diagnosis 10/12/2020 08:53:00 AM [facility] G459 Transient cerebral ischemic attack, unsp ecified Transient cerebral ischemic attack, unspecified Diagnosis 09/27/2020 05:50:00 PM [facility] D696 Thrombocytopenia, unspecified Thrombocytopenia, unspec ified Diagnosis 08/05/2020 [facility] Anxiety disorder, unspecified Anxiety disorder, unspec ified Diagnosis 08/05/2020 [facility]23[facility] C3491 Malignant neoplasm of unspecified part o f right bronchus or lung Malignant neoplasm of unspecified part of right bronchus or lung Diagnosis 08/01/2020 11:12:00 AM [facility] H90.3 Sensorineural hearing loss, bilateral Se nsorineural hearing loss, bilateral Problem 08/16/2021 12:00:00 AM EDT [facility] ([facility], ) J47.9 Bronchiectasis Bronchiectasis Problem 07/20/2021 12:00: 00 AM EDT [facility] ([facility], ) H91.92 Hearing loss Hearing loss Problem 06/27/2021 12:00:00 A M EDT [facility] ([facility], ) H61.21 Impacted cerumen Impacted cerumen Problem 06/27/2021 12 :00:00 AM EDT [facility] ([facility], ) J47.9 Bronchiectasis Bronchiectasis Problem 06/26/2021 12:00: 00 AM EDT [facility] ([facility], ) Z85.118 History of malignant neoplasm of bronchu s History of malignant neoplasm of bronchus Problem 06/12/2021 12:00:00 AM EDT [facility] ([facility], ) I31.3 Disorder of pericardium Disorder of pericardium Proble m 06/12/2021 12:00:00 AM EDT [facility] ([facility], ) [id number] Essential hypertension Essential hypertension Problem 05/23/2021 12:00:00 AM EDT [facility] ([facility]ter[facility]) M25.552 Arthralgia of the pelvic region and thig h Arthralgia of the pelvic region and thigh Problem 03/01/2021 12:00:00 AM EDT [facility] ([facility], ) [id number] Transient ischemic attack (disorder) Transient I schemic Attack (Tia) Problem 10/05/2020 12:00:00 AM EST CJ (Cesar sanchez MD [facility]) [id number] Transient ischemic attack (disorder) Transient I schemic Attack (Tia) Problem 10/05/2020 12:00:00 AM EST CJ (Cesar sanchez MD [facility]) [id number] Transient ischemic attack (disorder) Transient I schemic Attack (Tia) Problem 10/05/2020 12:00:00 AM EST CJ (Cesar sanchez MD [facility]) Surgeries/Procedures Procedure Description Date Indications Data Source(s) ECHO TTHRC R-T 2D W/WOM-MODE COMPL SPEC&COLR DOP <td>E CHOCARDIOGRAM TRANSTHORACIC</td><td>Routine</td><td>08/22/2021 1:44 PM EDT</td><td></td><td> </td> 08/22/2021 01:44:08 PM EDT [facility] ECG ROUTINE ECG W/LEAST 12 LDS TRCG ONLY W/O I&R <td>E CG 12- LEAD</td><td>Routine</td><td>08/22/2021 7:18 AM EDT</td><td></td><td></td> 08/22/2021 07:18:31 AM EDT [facility] ECG ROUTINE ECG W/LEAST 12 LDS TRCG ONLY W/O I&R <td>E CG 12- LEAD</td><td>Routine</td><td>08/17/2021 10:57 AM EDT</td><td> PAF (paroxysmal atrial fibrillation)</td><td></td> 08/17/2021 10:57:16 AM EDT PAF (paroxysmal atrial fibrillation) [facility] PAF (paroxysmal atrial fibrillation) BLOOD TYPING ABO <td>TYPE AND SCREEN</td><td> Routine</td><td>08/17/2021 10:45 AM EDT</td><td> PAF (paroxysmal atrial fibrillation)</td><td> </td> 08/17/2021 10:45:00 AM EDT PAF (paroxysmal atrial fibrillation) [facility] PAF (paroxysmal atrial fibrillation) BLOOD COUNT COMPLETE AUTOMATED <td>CBC</td><td>Routine </td><td>08/17/2021 10:30 AM EDT</td><td> PAF (paroxysmal atrial fibrillation)</td><td> </td> 08/17/2021 10:30:00 AM EDT PAF (paroxysmal atrial fibrillation) [facility] PAF (paroxysmal atrial fibrillation) BASIC METABOLIC PANEL CALCIUM TOTAL <td>BASIC METABOLI C PANEL</td><td>Routine</td><td>08/17/2021 10:30 AM EDT</td><td> PAF (paroxysmal atrial fibrillation)</td><td> </td> 08/17/2021 10:30:00 AM EDT PAF (paroxysmal atrial fibrillation) [facility] PAF (paroxysmal atrial fibrillation) OFFICE OUTPATIENT VISIT 15 MINUTES 08/16/2021 12:00:00 AM EDT [facility] ([facility]) OFFICE OUTPATIENT VISIT 25 MINUTES 08/13/2021 12:00:00 AM EDT [facility] (Osmel Alvarez MD) ECG ROUTINE ECG W/LEAST 12 LDS W/I&R 08/13/2021 12:00: 00 AM EDT [facility] (Osmel Alvarez MD) Computerized Tomography (CT Scan) of Chest and Abdomen Computerized Tomography (CT Scan) of Chest and Abdomen 08/03/2021 12:00:00 AM EDT [facility] Introduction of Antiarrhythmic into Peripheral Vein, P ercutaneous Approach Introduction of Antiarrhythmic into Peripheral Vein, Percutaneous Approach 08/03/2021 12:00:00 AM EDT [facility] Monitoring of Cardiac Electrical Activity, External Ap proach Monitoring of Cardiac Electrical Activity, External Approach 08/03/2021 12:00:00 AM EDT [facility] OFFICE OUTPATIENT VISIT 25 MINUTES 07/20/2021 12:00:00 AM EDT [facility] ([facility], ) ECG ROUTINE ECG W/LEAST 12 LDS W/I&R 07/05/2021 12:00: 00 AM EDT [facility] (Osmel Alvarez MD) OFFICE OUTPATIENT VISIT 25 MINUTES 07/05/2021 12:00:00 AM EDT [facility] (Osmel Alvarez MD) Remove Impacted Cerumen 06/27/2021 12:00:00 AM EDT [facility] ([facility], ) OFFICE OUTPATIENT VISIT 15 MINUTES 06/27/2021 12:00:00 AM EDT [facility] ([facility]) OFFICE OUTPATIENT NEW 30 MINUTES 06/27/2021 12:00:00 A M EDT [facility] ([facility]) OFFICE OUTPATIENT VISIT 25 MINUTES 06/26/2021 12:00:00 AM EDT [facility] ([facility]) Bronchoscopy W/Bronchial Alveolar Lavage 06/20/2021 12 :00:00 AM EDT [facility] ([facility]) OFFICE OUTPATIENT VISIT 25 MINUTES 06/12/2021 12:00:00 AM EDT [facility] ([facility]) DUPLEX SCAN EXTRACRANIAL ART COMPL BI STUDY 06/07/2021 12:00:00 AM EDT [facility] (Osmel Alvarez MD) ECG ROUTINE ECG W/LEAST 12 LDS W/I&R 05/31/2021 12:00: 00 AM EDT [facility] (Osmel Alvarez MD) OFFICE OUTPATIENT VISIT 25 MINUTES 05/31/2021 12:00:00 AM EDT [facility] (Osmel Alvarez MD) Electrocardiogram Complete 05/24/2021 12:00:00 AM EDT [facility] ([facility] OFFICE OUTPATIENT NEW 60 MINUTES 05/24/2021 12:00:00 A M EDT [facility] ([facility]) ECG ROUTINE [...] 25 MINUTES 04/17/2021 12:00:00 AM EDT [facility] ([facility], ) INITIAL OBSERVATION CARE/DAY MODERATE SEVERITY 12:00:00 [...] 25 MINUTES 03/01/2021 12:00:00 AM EDT [facility] ([facility], ) [facility] HOSPITAL CARE/DAY 25 MINUTES 02/17/2021 12:00:00 AM EDT [facility] ([facility] ) [facility] 25 MINUTES 02/16/2021 12:00:00 AM EDT [facility] ([facility] ) [facility] 25 MINUTES 02/14/2021 12:00:00 AM EDT [facility] ([facility] ) [facility] 25 MINUTES 02/13/2021 12:00:00 AM EDT [facility] ([facility], ) Bronchoscopy W/Biopsy 02/12/2021 12:00:00 AM EDT [facility] ([facility] ) [facility] HOSPITAL CARE/DAY 25 MINUTES 02/11/2021 12:00:00 AM EDT [facility] ([facility] ) [facility] HOSPITAL CARE/DAY 25 MINUTES 02/10/2021 12:00:00 AM EDT [facility] ([facility] ) [facility]Q HOSPITAL CARE/DAY 25 MINUTES 02/09/2021 12:00:00 AM EDT [facility] ([facility] ) [facility]Q HOSPITAL CARE/DAY 25 MINUTES 02/08/2021 12:00:00 AM EDT [facility] ([facility] ) [facility] 25 [facility]ES 02/06/2021 12:00:00 AM EDT [facility] ([facility] ) Spirometry 01/30/2021 12:00:00 AM EDT M [facility] ([facility], ) OFFICE OUTPATIENT VISIT 25 MINUTES 01/30/2021 12:00:00 AM EDT [facility] ([facility], ) OFFICE OUTPATIENT VISIT 25 MINUTES 01/29/2021 12:00:00 AM EDT [facility] (Osmel Alvarez MD) OFFICE OUTPATIENT VISIT 15 MINUTES 01/18/2021 12:00:00 AM EDT [facility] ([facility], ) OFFICE OUTPATIENT VISIT 25 MINUTES 01/17/2021 12:00:00 AM EDT [facility] ([facility], ) [facility] HOSPITAL CARE/DAY 25 MINUTES 12/26/2020 12:00:00 AM EST [facility] ([facility] ) [facility] HOSPITAL CARE/DAY 25 MINUTES 12/25/2020 12:00:00 AM EST [facility] ([facility] ) [facility] HOSPITAL CARE/DAY 25 MINUTES 12/24/2020 12:00:00 AM EST [facility] ([facility], ) HOSPITAL DISCHARGE DAY MANAGEMENT 30 MIN/< 12/23/2020 12:00:00 AM EST [facility] (Osmel Alvarez MD) Plain Radiography of Chest Plain Radiography of Chest 2020 12:00:[address] [facility] HOSPITAL CARE/DAY 15 MINUTES 12/22/2020 12:00:00 AM EST [facility] (Osmel Alvarez MD) [facility] HOSPITAL CARE/DAY 25 MINUTES 12/21/2020 12:00:00 [...] [employer] 5 11/24/2020 12:00:00 AM [facility] Introduction of Anesthetic Agent into Re spiratory Tract, Via Natural or Artificial Opening Introduction of Anesthetic Agent into Re spiratory Tract, Via Natural or Artificial Openin 11/24/2020 12:00:00 AM [facility] Introduction of Other Anti-infective int o Peripheral Vein, Percutaneous Approach Introduction of Other Anti-infective int o Peripheral Vein, Percutaneous Approach 11/24/2020 12:00:00 AM [facility] Blood culture for bacteria, including anaerobic screen (proc edure) 11/24/2020 12:00:00 AM [facility] ECG [...] 12:00:00 AM EST CJ (David Barrow MD [facility]) Intermediate Eye Exam Established Patient Intermediate Eye Exam Established Patient 10/05/2020 12:00:00 AM EST CJ (David Barrow MD [facility]) ECHO TTHRC R-T 2D W/WOM-MODE COMPL SPEC&COLR DOP 10/03 12:00:00 AM EST [facility] (Osmel Alvarez MD) XTRNL ECG < 48 HR RECORD SCAN STOR W/PHY R&I 0 12:00:00 AM EDT [facility] (Osmel Alvarez MD) ECHO TTHRC R-T 2D W/WOM-MODE COMPL SPEC&COLR DOP 08/18 12:00:00 AM EDT [facility] (Osmel Alvarez MD) Results ID Date Data Source [id number] 08/22/2021 02:12:19 PM EDT [facility] Name Value Range Interpretation Code Description Data Maura rce(s) Supporting Document(s) &PDF [facility] LYAZJx9vCnMXDuEz65/QKUzcVYRke5KsDKboAMo3CMizTYEjS6IbmTkdGBtVUbVFWG7sA5TOWNHJQC9A yZW [file] ICAgICAgICAgICAgICAgICAgICAgICAgICAgICAgIC OnWUAvEREgNRVaXQWxJDShCAWoUAZgHBXwNBLdOQNxNJYmBFHcOPIhSCQmKL7QURJvEZRaQDNzVQBzMG AgICAgICAgICAgICAgICAgICAgICAgICAgICAgICAgICAgICAgICAgICAgICAgICAgICAgICAgICAgIC PoUIWgLQEcPIXgQUUeUSKfVRGoQYZyNVMwLI4CPXSw ICAgICAgICAgICAgICAgICAgICAgICAgICAgICAgICAgICAgICAgICAgICAgICAgICAgICAgICAgICAg ISHnNPMmFREkZZJvYFXxPSByAXTuEBPtNUTbNZXrJZBnYOIpGP7MPSOaTDAcYPHpVIIcQVTtUGDdNVKy ICAgICAgICAgICAgICAgICAgICAgICAgICAgICAgIC XnQHJgYPEuBVLuDYLdKPGvFOPkBCScFYVpQZExJUFwZDHsLNPcYVLcFPFzYWLqPP5OTINaVIGzSSSpXT AgICAgICAgICAgICAgICAgICAgICAgICAgICAgICAgICAgICAgICAgICAgICAgICAgICAgICAgICAgIC XuGBMjSGGlBPHkWVIiIMGjIQYrAMJkUBCjMCMnPQ9N ICAgICAgICAgICAgICAgICAgICAgICAgICAgICAgICAgICAgICAgICAgICAgICAgICAgICAgICAgICAg ZHKuOFLySBSkFITtBDTfEVNbLJZxIHViGSJfUELnBIFxSHVvUKSrAX7HYVJcIAMwEXXzQXKmJMLvZXJh ICAgICAgICAgICAgICAgICAgICAgICAgICAgICAgIC JvQASbYGOaEFRtWRTfOOJkDUHhRSNdEAYdYCTvGGUoNKJnDRXpJPObUXVfKUQrGXHcMM8ZLYJsIKSzGA AgICAgICAgICAgICAgICAgICAgICAgICAgICAgICAgICAgICAgICAgICAgICAgICAgICAgICAgICAgIC AgICAgICAgICAgICAgICAgICAgICAgICAgICAgICAg IE0OPPJpTCUhIVJpWPVpVJUvZXIxHBRsCVBtXHVrCDEpDDVvLLGvUCAcYYPoMDTnBSXiZQByCLJrHSTj XFEdGBFeUGTyXUCyYHWnKUWpLIEtXTKmXBZnAICnXQAvAWItNHTwDVLpKM1CORXsKFOoIBUxKPYeIOTu ICAgICAgICAgICAgICAgICAgICAgICAgICAgICAgIC TnMFLsKHJrYLKvIPKeCBIiTJNzRIWlAEBjRUMtOHJhKOHeUCBvKDDdEPNsSMMhEFLkNAUkVT1OSH54fN Hal7P6RENkQT3gzxx/Nw4HYLuopeSztBMuXW7ZHvTvUY8bhn7NKhEfVN1eri1CZTwYVoCsX0J7hSHuEA AuRHKSFsMxA50kPDfjVc50QGlaBIQeDaStEKi4Yq4X VwOfK9ogXFVjVtH5YPPyRgX7FFCeGuQpWZeyDF1Vp1NreUPeLBg+Hn6TNG0iw1FtKTwyBuWvOW9fwz1G OOjWUsSwN6O4pZUaT6P5ZXblPw6BREBfPAXyLjVvSIOBSKfnVP1IZN8rocL3LT3RjJTmKTUlVWVwiXMj SVd4L71taAFmMFqdCT9HGFE+Guilherme+Vw6UCPCuIOVqUN QoFuZzUKPZFqNbE94jsVUfYWFtKBF5CWOqBj3WYVDeN8CgkuOtxMcfqfHtEFIfDDZCRP7VIRhjdjPkuY HafNuzTU51tAkzZA1WXe2NFwKiCL4jyc0DiOZvMd4KFZJtXr4LPBHpPVJyHNVbIST4SPUnEyUzEAgpGV BiSMMnTUP0SXEfNPZjUY1TGwHnIJOnDeDrQXvoEBPf GFEieu4HHZMjBQScHayvCcVrIYEaYIEuOOqcOTWtMZOtAWb8RVCdBPUdAX1RHwXmUGHsOWSxKgWhVOEg UBObwc9FZPAeHNCdUsCnNuAvDLErKRWjVHwhOJLtELK0UrYzRFVgTZKdMV1WZnIyDDFyIZJ8NrfeITYc EOUjyw4IGXNqNRZpVhh2TeFtWMTcOPEgYHunELKuSU C0BJdrFBZqZTRhQR7FVgEvAJQmIJraQbVyNWGvRENexo4PQWOtBEYqBELeSeYoOFBsUAJxXNpeWJDmSR S7SQT1AUXjDXOvGA9YZgCgVZRcESw7AnFeNUXtQUGsfn1QXWIwZFYgUzD9ZWHcPGEkNQVnIRqnXUBzWK FjRwe2HNSuQRUxZF0TRvGlXRUvGOHsIJdnKLDdVWJi oe4PKLMuBLSoDXZ3IxVvMLPzZCMzPYngNKKhUZR7Abx9VFIhHGZyJK1BRlJkLOOfYEBpJvSaHYMeISOv bg4HQKAoJRNlEZWfJHWqZULxEKIqQRzlIBRoRZI4Chd9XIEhVAAbLX5BCqOsPKHyHsN5NOOcSCNjBEZw bf0GTCBmIIUtBFFoHiNxBXPfYUCpQPucQFZlZNG0LY ixYLVpCYFrGH9VYcIoDLOyRybfHYhjLDEfMPSlex1SvUNvmZljxj8EYMfVOv4FcQrpGTW3WQwqXf6ozQ NqTmEeAZRAAq5YwhWrLWIdYXFSOGtcJMArDPWlSEA0DLqdNxKuGEO8VSYoQNgnNTUbV8JiIGTmHQZxKp N8IbWvVQM2OXYaY2SaEZyhYYE2QCAvYgQxL2E8HLWg Y2Y+TP3lVLg+Pi4Rd6RlroH8gtKaUMbtEdUlBW9BOHJAM7VEGr== ID Date Data Source [id number] 08/22/2021 11:15:25 AM [facility]T [facility] Name Date of Age Gend*PT [id number] Solomon Chantale E 1965 56 years F HOPPT Location Admission Date/Time Visit ID Attending Provider --- --- --- --- EPI ID CSN Admitting Provider [id number] ---Arterial Line PlacementPatient location during procedure: ORIndications [...] rce(s) Supporting Document(s) ID Date Data Source [id number] 08/22/2021 09:06:01 AM EDT [facility] Name Value Range Interpretation Code Description Data Maura rce(s) Supporting Document(s) EKG [facility] YHKVDe1dJzCADxDtp3DiIuDpRVPiSA4dvra9G9Z9zLLtE8KimYItr4ubA5ZkH5ZmBCWbGFNPLI6CvDRw jb2 [file] OTggMDAwMDAgbiAKMDAwMDAwMDQwOSAwMDAwMCBuIA lwMNUrDXFlAJIjYHHjCXGaNX2qYvZmTJDiHVN2ZHIvOOLqWTTxreYAJAQuJRXaFKu5TOLuZNRhNIVmLY ovPPBuGYQmTDW7FSXzFASbOJ0bRdXjVXRdEIO0PwEtEIYiQEGcbiRYQTWyXQUeQIQ6GjGfGPKfIEIhYG xpXPBqACJnVGpbCMGuPIPkKD2iMzWfZXCiSLShPIjy QDGcHJBgrsGDHYAjIJGxXAGsIpVvCMMeFHHgMSyrREAlNWNhDXJ5WHOfXAOwCZ6pRyBtPBGyEAN6EDom LOFpXRYljuELRQNeRFHvSGrlJNExMPHgNFVfZNthCWEfMJNrQVM6QTRnZKIuTI9xIvTiEQPuAQUiUYPy KyA9GmNoKlBZqKKaoJeuhya6RNgbI3g3AYSjAZrqTQ 6ysnPjDLTfDqolSc7qwJP2NRWoHgqTFz7Yu1RmapV1glXeFcBwRyMbAxCrNK7X ID Date Data Source [id number] 08/22/2021 09:02:11 AM EDT [facility]FORMATIONPatient MRN Name Date of Age Gend*PT [id number] Chantale Solomon 1965 56 years F HOPPT Location Admission Date/Time Visit ID Attending [id number] 08/22/21 0643 --- M Berny Vu MD([id number]) EPI ID CSN Admitting Provider [id number] Kareem Vu MD([id number])Inpatient History & PhysicalGertrudedoreen SolomonMRN:[id number]: here for AF ablationPast Medical History:Past Medical History:Diagnosis Date Anemia Anxiety Cataracts, bilateral COPD (chronic obstructive pulmonary disease) Uses 2-3L of supplemental oxygen at baseline Eczema Fasciitis GERD (gastroesophageal reflux disease) Hemoptysis [place] (hard of hearing) Hypertension Lung cancer With [...] catheter every 42 days (6 weeks) Tiotropium [place] Monohydrate (Spiriva Respimat) 2.5 MCG/ACT AERS Inhale [...] rce(s) Supporting Document(s) ID Date Data Source [id number] 08/22/2021 08:52:14 AM EDT [facility]FORMATIONPatient [facility] Name Date of Age Gend*PT [id number] Chantale Solomon 1965 56 years F HOPPT Location Admission Date/Time Visit ID Attending Provider --- --- --- --- EPI ID CSN Admitting Provider [id number] ---AirwayPatient location during procedure: ORUrgency: electiveDifficult airway: [...] to lips: 21 cmPlacement verified by: + [id number] view: grade IIa - partial view of glottis Name Value Range Interpretation Code Description Data Maura rce(s) Supporting Document(s) ID Date Data Source [id number] 08/17/2021 04:43:11 PM EDT [facility]FORMATIONPatient [facility] Name Date of Age Gend*PT [id number] Chantale Solomon 1965 56 years F OPPT Location Admission Date/Time Visit ID Attending Provider --- --- --- Kareem uV MD([id number]) EPI ID CSN Admitting Provider [id number] ---OUTPATIENT / OBSERVATIONAL SURGICAL OR INVASIVE PROCEDUREName: [...] Eczema Fasciitis GERD (gastroesophageal reflux disease) Hemoptysis [place] (hard of hearing) Hypertension Lung cancer With [...] 42 days (6 weeks) Historical Provider, Tiotropium [place] Monohydrate (Spiriva Respimat) 2.5 MCG/ACT AERS Inhale [...] thyromegaly. No carotid bruits.MENTAL / NEUROLOGICAL STATUS: [id number]: Decreased over left lung. No wheezes, rhonchi [...] parts of this document, were dictated using [employer] speaking software. A reasonable attempt at proofreading has beenmade to minimize errors. Please call with any questions or corrections. Name Value Range Interpretation Code Description [facility] Supporting Document(s) ID Date Data Source [id number] 08/17/2021 10:59:34 AM EDT [facility] Name Value Range Interpretation Code Description Data [facility] Supporting Document(s) EKG [facility] BGJQWw5lKoTHLwOyq3BiVqPrCHTuQH2vejw7Y9K4hYAzI6ZpoLXwm0snX0VzU2TaYNHkXFMLDW0EqBBo jb2 [file] AwMDAwMDUyMyAwMDAwMCBuIAowMDAwMDAwNjQxIDAw OFYpZM8nOmErISXmMFS7JNTwNSWwHEJmaqXBMLQxDFPiRAt1LPVwQTLpFBYeANbqBHUzTYIsTCK4GCHa ZPUyIH1oYoFqXESlBHFfGDDyVHEeRVOtpsZCBZLjOIPoAHA1FUChJTUlFQTgNQucPRKfGVXlLwq8GVIt KGEzHC5oNlJvRJXrMON7HCGoTOFaJJFrseVLFNFhKW G8DxX4ALMeDZLdHNBoPBsqZGWyVYBhAlI7GBEyTHGbIU3eMtAjUBPxOMT6BmLsCFWbPPHijrVGODKbRU PjWPG7QlSfQQRyWFRkUGtcTGXpIMBmXGOzWBD8LCF4KMKeAnMwFUhcGWZGWXiOI0OdxdLcRdYGD8qxYj 4uNwYnQRDUG0Gww4CgPASpKDKEBo8+RqH1JJC0cSIiJgj8Ojz7IoiqMBIOSh== ID Date Data Source [id number] 08/17/2021 07:13:49 PM EDT [facility] SPEC EXP DATE 08/23/2021ATI ENT ABO/Rh A POSITIVEANTIBODY SCREEN NEGATIVETESTING SITE PERFORMED AT [address] [place] [id number] Name Value Range Interpretation Code Description Data Maura rce(s) Supporting Document(s) TYPE AND SCREEN [facility] ID Date Data Source [id number] 08/17/2021 01:52:40 PM EDT [facility] Name Value Range Interpretation Code Description Data Maura rce(s) Supporting Document(s) SODIUM 140 mmol/L (136-145) [facility] POTASSIUM 4.0 mmol/L (3.6-5.2) [facility] CHLORIDE 103 mmol/L (100-108) [facility] CO2 31 mmol/L (22-31) [facility] ANION GAP 6 mmol/L (7-16) L [facility] UREA NITROGEN 14 mg/dL (7-24) [facility] CREATININE 1.24 mg/dL (0.60-1.00) H [facility] BUN/CREAT RATIO 11.3 RATIO (10.0-20.0) [facility] GLUCOSE 104 mg/dL (70-99) H [facility] CALCIUM 8.8 mg/dL (8.4-10.2) [facility] GFR 45 ml/min/1.73m2 (>59) L [facility] GFR ([facility]) 54 ml/min/1.73m2 (>59) L [facility] GFR INTERPRETATION [facility] --NORMAL KIDNEY FUNCTION OR MILD DISEASE - GFR >OR= 60CHRONIC KIDNEY DISEASE - GFR 15 - 59RENAL FAILURE - GFR <15 Est. GFR calculation based on the MDRDstudy equation, which assumes a steadystate for creatinine. Est. GFR should notbe used for medication dosing. ID Date Data Source [id number] 08/17/2021 01:37:01 PM EDT [facility] Name Value Range Interpretation Code Description Data Maura rce(s) Supporting Document(s) WBC 8.8 10*3/uL (4.1-11.0) [facility] RBC 2.70 10*6/uL (4.00-5.40) L [facility] HGB 9.5 g/dL (12.0-16.0) L [facility] HCT 28.7 % (36.0-47.0) L [facility] MCV 106.2 fL (80.0-95.0) H [facility] MCH 35.1 pg (27.0-32.0) H [facility] MCHC 33.1 g/dL (32.0-36.0) [facility] RDW 17.4 % (10.5-14.5) H [facility] PLT 257 10*3/uL (150-450) [facility] MPV 8.0 fL (7.1-10.7) [facility] ID Date Data Source [id number] 08/18/2021 06:43:58 AM EDT [facility] Name Value Range Interpretation Code Description Data Maura rce(s) Supporting Document(s) SPECIMEN DESCRIPTION [facility] COVID 19 RESULT (NDET) [facility] NEGATIVE COVID-19 RESULTS DONOT PRECLUDE COVID-2019 INFECTION ANDSHOULD NOT BE USED THE SOLE BASISFOR PATIENT MANAGEMENT DECISIONS. COMMENT [facility] [place] FDA HAS MADE THIS TEST AVAILABL PAIGEER AN EMERGENCY USE AUTHORIZATION(EUA) FOR THE DETECTION AND/OR DIAGNOSISOF THE VIRUS THAT CAUSES COVID-19.THIS ASSAY AMPLIFIES AND DETECTS [employer] USING BUOY TENDER- MEDIATEDAMPLIFICATIONTESTING PERFORMED ON [employer] FIRST TEST [facility] EMPLOYED IN [employer] [facility] SYMPTOMATIC [facility] DATE OF SYMPT ONSET [facility] HOS[facility]ED [facility] [place] [facility] CONGREGATE CARE SET [facility] GOLDY ID Date Data Source [id number] 08/04/2021 07:58:00 [place] [address] PROGRESS NOTENAME: JUANITO Daniels ROOM#: 109-1DATE OF : 1965 MR#: [id number] DATE: 08/01/21 OF SERVICE: 08/04/21SUBJECTIVE: This patient [...] a PET scan on August 13 at [facility].DD: Osmel Alvarez MD, PC 08/04/21 10:32DT: DMAutumn 08/04/21 19:58DS: Osmel Alvarez MD, PC 08/09/21 08:09 1 Name Value Range Interpretation Code Description Data Maura rce(s) Supporting Document(s) ID Date Data Source [id number] 08/03/2021 10:51:00 [place] [address] PROGRESS NOTENAME: JUANITO Daniels ROOM#: 109-1DATE OF : 1965 MR#: [id number] DATE: 08/01/21 OF SERVICE: 08/03/21SUBJECTIVE: This patient [...] Osmel Alvarez MD, PC 08/03/21 09:33 [address] [place] [address] PROGRESS NOTENAME: JUANITO Daniels ROOM#: 109-1DATE OF : 1965 MR#: [id number] DATE: 08/01/21 : SONYA 08/03/21 22:48DS: Osmel Alvarez MD, PC 08/09/21 08:09 2 Name Value Range Interpretation Code Description Data Maura rce(s) Supporting Document(s) ID Date Data Source [id number] 08/02/2021 11:41:00 [place] [address] PROGRESS NOTENAME: JUANITO Daniels ROOM#: [id number] OF : 1965 MR#: [id number] DATE: 08/01/21 OF SERVICE: 08/02/21SUBJECTIVE: This patient [...] p.o. We will maximize anti-arrhythmic therapy. [address] [place] [address] PROGRESS NOTENAME: JUANITO Daniels ROOM#: [id number] OF : 1965 MR#: [id number] DATE: 08/01/21 4. We will get an [...] rce(s) Supporting Document(s) ID Date Data Source [id number] 08/06/2021 12:48:00 [place] [address] HISTORY AND PHYSICALNAME: JUANITO Daniels ROOM#: [id number] OF : 1965 MR#: [id number] PHYS: Osmel Alvarez MD, PC DATE: 08/01/21DATE [...] spine, septoplasty, tubal ligation.REVIEW OF SYSTEMS: [address] [place] [address] HISTORY AND PHYSICAL NAME: JUANITO Daniels ROOM#: CCU2 DATE OF : 1965 MR#: [id number] ATTENDING PHYS: Osmel Alvarez MD, PC ADMISSION [...] Paroxysmal atrial fibrillation, recurrent, rapid rate. [address] [place] [address] HISTORY AND PHYSICALNAME: JUANITO Daniels ROOM#: [id number] OF : 1965 MR#: [id number] PHYS: Osmel Alvarez MD, PC DATE: . [...] rce(s) Supporting Document(s) ID Date Data Source [id number] 08/06/2021 01:14:00 [place] [address] DISCHARGE SUMMARYNAME: JUANITO Daniels ROOM#: 109-1DATE OF : 1965 MR#: [id number] PHYS: Osmel Alvarez MD, PC [facility] [id number] DATE: 08/01/21 DISCHARGED: 08/05/21REASON FOR ADMISSION: This [...] mg daily5. Multaq 400 mg b.i.d. [address] [place] [address] DISCHARGE SUMMARYNAME: JUANITO Daniels ROOM#: 109-1DATE OF : 1965 MR#: [id number] PHYS: Osmel Alvarez MD, PC DATE: 08/01/21 [...] is scheduled for atrial fibrillation ablation at [facility] in three weeks.FINAL DIAGNOSES:1. Paroxysmal atrial fibrillation, recurrent.2. History of right pulmonary emboli.3. 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 Carcinoma of the left lung.5. History of COPD.DD: Osmel Alvarez MD, PC 08/05/21 11:21DT: SONYA 08/06/21 01:14DS: Osmel Alvarez MD, PC 08/09/21 08:09 2 Name Value Range Interpretation Code Description Data Maura rce(s) Supporting Document(s) ID Date Data Source [id number] 08/09/2021 07:42:00 [place] [address] RESPIRATORY CARE REPORT ==== ---------NAME------- NUMBER SEX AGE ADMIT DISC. XRAY# F/C CYNDY Daniels [id number] F 56 08/01/21 08/05/21 [id number] B1 I/P DATE OF : 1965 M/R# [id number] PH#: [phone] 109-1 LOCATION: EMERGENCY DEPT EKG 44330 COMP LETE:08/05/21 10:27 [place] [id number] PHYSICIAN: KIM MENDEZ Name Value Range Interpretation Code Description Data Maura rce(s) Supporting Document(s) ID Date Data Source [id number] 08/09/2021 07:41:00 [place] [address] RESPIRATORY CARE REPORT ==== ---------NAME------- NUMBER SEX AGE ADMIT DISC. XRAY# F/C CYNDY Daniels [id number] F 56 08/01/21 08/05/21 [id number] B1 I/P DATE OF : 1965 M/R# [id number] PH#: [phone] 109-1 LOCATION: EMERGENCY DEPT EKG 46387 COMP LETE:08/04/21 12:30 [place] [id number] PHYSICIAN: KIM MENDEZ Name Value Range Interpretation Code Description Data Maura rce(s) Supporting Document(s) ID Date Data Source [id number] 08/09/2021 07:40:00 AM EDT [address] [address] RESPIRATORY CARE REPORT ==== ---------NAME------- NUMBER SEX AGE ADMIT DISC. XRAY# F/C CYNDY Daniels [id number] F 56 08/01/21 08/05/21 [id number] B1 I/P DATE OF : 1965 M/R# [id number] PH#: [phone] 109-1 LOCATION: EMERGENCY DEPT EKG 07871 COMP LETE:08/03/21 11:00 CJM 92335 PHYSICIAN: KIM MENDEZ Name Value Range Interpretation Code Description Data Maura rce(s) Supporting Document(s) ID Date Data Source [id number] 08/09/2021 07:38:00 [place] [address] RESPIRATORY CARE REPORT ==== ---------NAME------- NUMBER SEX AGE ADMIT DISC. XRAY# F/C CYNDY Daniels [id number] F 56 08/01/21 08/05/21 [id number] B1 I/P DATE OF : 1965 M/R# [id number] PH#: [phone] 109-1 LOCATION: EMERGENCY DEPT EKG 47489 COMP LETE:08/02/21 07:16 CLC 37580 PHYSICIAN: KIM MENDEZ Name Value Range Interpretation Code Description Data Maura rce(s) Supporting Document(s) ID Date Data Source [id number] 08/09/2021 07:37:00 [place] [address] RESPIRATORY CARE REPORT ==== ---------NAME------- NUMBER SEX AGE ADMIT DISC. XRAY# F/C OSMANIJUANITO KYLEKULDIP Daniels [id number] F 56 08/01/21 08/05/21 [id number] B1 I/P DATE OF : 1965 M/R# [id number] #: [id number] 109-1 LOCATION: EMERGENCY DEPT EKG 62344 COMP LETE:08/09/21 07:36 CLC 55201 PHYSICIAN: KIM Coronado Value Range Interpretation Code Description Data Maura rce(s) Supporting Document(s) ID Date Data Source [id number] 08/09/2021 07:32:00 [place] [address] RESPIRATORY CARE REPORT ==== ---------NAME------- NUMBER SEX AGE ADMIT DISC. XRAY# F/C OSMANISUREKHAAMELIA AMAYAHERKULDIP Daniels [id number] F 56 08/01/21 08/05/21 [id number] B1 I/P DATE OF : 1965 M/R# [id number] PH#: [phone] 109-1 LOCATION: EMERGENCY DEPT EKG 68846 COMP LETE:08/01/21 10:59 CLC 83282 PHYSICIAN: KIM STUBBS Name Value Range Interpretation Code Description Data Maura rce(s) Supporting Document(s) ID Date Data Source [id number] 08/05/2021 06:33:00 AM EDT [facility] (Osmel Alvarez MD) Name Value Range Interpretation Code Description Data Maura rce(s) Supporting Document(s) Magnesium [Mass/volume] in Serum or Plasma 1.8 mg/dL 1.7-2.2 [facility] (Osmel Alvarez MD) ID Date Data Source [id number] 08/05/2021 06:33:00 AM EDT [facility] (Osmel Alvarez [...] (Osmel Alvarez MD) ID Date Data Source [id number] 08/05/2021 06:33:00 AM EDT [facility] (Osmel Alvarez [...] (Osmel Alvarez MD) ID Date Data Source [id number] 08/05/2021 07:45:00 AM EDT [facility] Name Value Range Interpretation Code Description Data Maura rce(s) Supporting Document(s) COMPREHENSIVE METABOLIC PANEL [facility] COMPREHENSIVE METABOLIC PANEL Sodium [Moles/volume] in Serum or Plasma 139 mEq/L 134 - 153 [facility] Potassium [Moles/volume] in Serum or Plasma 4.1 mEq/L 3.6 - 5.0 [facility] Chloride [Moles/volume] in Serum or Plasma 101 mEq/L 98 - 107 [facility] Carbon dioxide, total [Moles/volume] in Serum or Plasma 28 MEQ/L 22 - 30 [facility] Glucose [Mass/volume] in Serum or Plasma 100 MG/DL 70 - 99 H [facility] BUN 18 MG/DL 7 - 21 [facility] Creatinine [Mass/volume] in Serum or Plasma 1.2 MG/DL 0.7 - 1.5 [facility] BUN/CREAT 15 8 - 27 [facility] Protein [Mass/volume] in Serum or Plasma 5.6 G/DL 6.3 - 8.2 L [facility] Albumin [Mass/volume] in Serum or Plasma 3.2 G/DL 3.9 - 5.0 L [facility] Globulin [Mass/volume] in Serum by calculation 2.4 GM/DL 2.4 - 3.2 [facility] A/G RATIO 1.3 0.8 - 2.0 [facility] Calcium [Mass/volume] in Serum or Plasma 8.7 MG/DL 8.4 - 10.2 [facility] Bilirubin.total [Mass/volume] in Serum or Plasma <0.7 MG/DL 0.2 - 1.3 [facility] Alkaline phosphatase [Enzymatic activity/volume] in Serum or Plasma 157 U/L 38 - 126 H [facility] Aspartate aminotransferase [Enzymatic activity/volume] in Serum or Plasma 30 U/L 5 - 40 [facility] Alanine aminotransferase [Enzymatic activity/volume] in Seru m or Plasma 25 U/L 7 - 56 [facility] Anion gap 3 in Serum or Plasma 10.0 mmol/L 8.0 - 16.0 [facility] AGE 56 yrs [facility] al NON-AA GFR 49 mL[facility] AMER GFR 60 mL/min [facility] Male GFR In terprentation 20-49 [...] >32 mL/min Normal ID Date Data Source [id number] 08/05/2021 07:45:00 AM T [facility] Name Value Range Interpretation Code Description Data Maura rce(s) Supporting Document(s) Magnesium [Mass/volume] in Serum or Plasma 1.8 MG/DL 1.7 - 2.2 [facility] ID Date Data Source [id number] 08/05/2021 07:31:00 AM EDT [facility] Name Value Range Interpretation Code Description Data Maura rce(s) Supporting Document(s) CBC W/AUTOMATED DIFF [facility] COMPLETE BLOOD COUNT Leukocytes [#/volume] in Blood by Automated count 4.7 10^3/uL 4.2 - 1 1.0 [facility] Erythrocytes [#/volume] in Blood by Automated count 2.51 10^6/uL 4. 20 - 5.40 L [facility] Hemoglobin [Mass/volume] in Blood 8.7 g/dL 12.0 - 16.0 L [facility] Hematocrit [Volume Fraction] of Blood by Automated count 26.3 % 3 7.0 - 47.0 L [facility] Erythrocyte mean corpuscular volume [Entitic volume] b y Automated count 104.8 fL 81.0 - 101 H [facility] Erythrocyte mean corpuscular hemoglobin [Entitic mass] by Automated count 34.7 pg 27.0 - 34.0 H [facility] Erythrocyte mean corpuscular hemoglobin concentration [Mass/volume] by Automated count 33.1 g/dL 31.0 - 36.0 [facility] Erythrocyte distribution width [Ratio] by Automated count 14.0 % 11.5 - 14.5 [facility] Platelets [#/volume] in Blood by Automated count 113 10^3/uL 150 - 45 0 L [facility] Platelet mean volume [Entitic volume] in Blood by Automated count 10.7 fL 7.4 - 10.4 H [facility] Neutrophils/100 leukocytes in Blood by Automated count 65.4 % 37. 0 - 80.0 [facility] Lymphocytes/100 leukocytes in Blood by Manual count 6.8 % 25.0 - 40.0 L [facility] Monocytes/100 leukocytes in Blood by Automated count 18.9 % 3.0 - 8.0 H [facility] Eosinophils/100 leukocytes in Blood by Automated count 7.2 % 0.0 - 7.0 H [facility] Basophils/100 leukocytes in Blood by Automated count 0.4 % 0.0 - 2.5 [facility] %IG 1.3 % 0.0 - 0.0 H [facility] al %NRBC 0.0 % 0.0 - 0.0 [facility] Neutrophils [#/volume] in Blood by Automated count 3.09 10^3/uL 2.00 - 6.90 [facility] Lymphocytes [#/volume] in Blood by Automated count 0.32 10^3/uL 0.60 - 3.40 L [facility] Monocytes [#/volume] in Blood by Automated count 0.89 10^3/uL 0.00 - 0.90 [facility] Eosinophils [#/volume] in Blood by Automated count 0.34 10^3/uL 0.00 - 0.70 [facility] Basophils [#/volume] in Blood by Automated count 0.02 10^3/uL 0.00 - 0.20 [facility] #IG 0.06 10^3/uL 0.00 - 0.10 [facility] #NRBC 0.00 10^3/uL 0.00 - 0.00 [facility] MANUAL DIFF NOT INDICATED [facility] RBC MORPH NOT INDICATED [facility] spital ID Date Data Source [id number] 08/04/2021 05:33:00 PM EDT [facility] [address] [place] [address] PHONE: [phone] FAX: [phone] Name .................. : JUANITO aDniels Acct Number.................. : [id number] ROOM. ................. : CCU2 MR Number ................... : [id number] Stay type ............. : I/P Discharge Date......... ... : Admit Date ......... : 08/01/21 Admit Phys .................... : KIM VANESSA Date of ....... : 1965 Family Phys ................... : REGINE GAIL Phone .................. : [phone] Age ................................ : 56 Film# .................. .:[id number] Sex ................................. : F Unsigned transcriptions are preliminary reports and do not represent a medical or legal document CT THORAX W/O CONTRAST [id number] COMPLETE:08/03/21 09:43 61225 Reason for Exam: RT RIBCADGE METASTATIC DISEASE PLEURISY LEFT LUNG CT ABD & PELV W/O ORAL W/[place] [address] COMPLETE:08/03/21 09:42 85364 Reason for Exam: METASTATIC DISEASE PELVIS,BONE, LIVER [...] No axillary adenopathy. Page 1 of 3 [facility] [address] [place] [address] PHONE: [phone] FAX: [phone] Name .................. : JUANITO Daniels Acct Number.................. : [id number] ROOM. ................. : CCU2 MR Number ................... : [id number] Stay type ............. : I/P Discharge Date......... ... : Admit Date ......... : 08/01/21 Admit Phys .................... : KIM MENDEZ Date of ....... : 1965 Family Phys ................... : SEQUEIRA Phone .................. : [phone] Age .......... ...................... : 56 Film# .................. .:[id number] Sex ................................. : F Unsigned transcriptions are preliminary reports and do not represent a medical or legal document CT TH[place]AX W/O CONTRAST 45589 COMPLETE:08/03/21 09:43 75949 Reason for Exam: RT RIBCADGE METASTATIC DISEASE PLEURISY LEFT LUNG CT ABD & PELV W/[place] ORAL W/[place] [address] COMPLETE:08/03/21 09:42 51705 Reason for Exam: METASTATIC DISEASE PELVIS,BONE, LIVER [...] adenopathy. No AAA. Page 2 of 3 [facility] [address] [place] [address] PHONE: [phone] FAX: [phone] Name .................. : JUANITO ROMAN Jeremiah nesser.................. : [id number] ROOM. ................. : CCU2 MR Number ................... : [id number] Stay type ............. : I/P Discharge Date......... ... : Admit Date ......... : 08/01/21 Admit Phys .................... : KIM VANESSA Date of ....... : 1965 Family Phys ................... : REGINE GAIL Phone .................. : [phone] Age ................................ : 56 Film# .................. .:[id number] Sex ................................. : F Unsigned transcriptions are preliminary reports and do not represent a medical or legal document CT [place]AX W/O CONTRAST [id number] COMPLETE:08/03/21 09:43 57701 Reason for Exam: RT RIBCADGE METASTATIC DISEASE PLEURISY LEFT LUNG CT ABD & PELV W/[place] W/[place] [id number] COMPLETE:08/03/21 09:42 35918 Reason for Exam: METASTATIC DISEASE PELVIS,BONE, LIVER [...] 08/03/21 15:44, Dictation Date: Copy for: 002 [facility] Copy for: 710 MED REC Page 3 of 3 Name Value Range Interpretation Code Description Data Maura rce(s) Supporting Document(s) ID Date Data Source [id number] 08/04/2021 05:33:00 PM EDT [facility] [address] [place] [address] PHONE: [phone] FAX: [phone] Name .................. : JUANITO Daniels Acct Number.................. : [id number] ROOM. ................. : CCU2 MR Number ................... : [id number] Stay type ............. : I/P Discharge Date......... ... : Admit Date ......... : 08/01/21 Admit Phys .................... : KIM VANESSA Date of ....... : 1965 Family Phys ................... : SEQUEIRA Phone .................. : [phone] Age ................................ : 56 Film# .................. .:[id number] Sex ................................. : F Unsigned transcriptions are preliminary reports and do not represent a medical or legal document CT TH[place]AX W/O CONTRAST 42828 COMPLETE:08/03/21 09:43 10448 Reason for Exam: RT RIBCADGE METASTATIC DISEASE PLEURISY LEFT LUNG CT ABD & PELV W/[place] ORAL W/[place] [address] COMPLETE:08/03/21 09:42 18594 Reason for Exam: METASTATIC DISEASE PELVIS,BONE, LIVER [...] No axillary adenopathy. Page 1 of 3 [place] [address] PHONE: [phone] FAX: [phone] Name .................. : JUANITO Daniels Acct Number.................. : [id number] ROOM. ................. : CCU2 Number ................... : [id number] Stay type ............. : I/P Discharge Date......... ... : Admit Date ......... : 08/01/21 Admit Phys .................... : KIM VANESSA Date of ....... : 1965 Family Phys ................... : SEQUEIRA Phone .................. : [phone] Age .......... ...................... : 56 Film# .................. .:[id number] Sex ................................. : F Unsigned transcriptions are preliminary reports and do not represent a medical or legal document CT THORAX W/O CONTRAST [id number] COMPLETE:08/03/21 09:43 12967 Reason for Exam: RT RIBCADGE METASTATIC DISEASE PLEURISY LEFT LUNG CT ABD & PELV W/[place]AL W/[place] [address] COMPLETE:08/03/21 09:42 15546 Reason for Exam: METASTATIC DISEASE PELVIS,BONE, LIVER [...] adenopathy. No AAA. Page 2 of 3 [place] [address] PHONE: [phone] FAX: [phone] Name .................. : JUANITO Daniels Denyscar Jignesh nesser.................. : [id number] ROOM. ................. : CCU MR Number ................... : [id number] Stay type ............. : I/P Discharge Date......... ... : Admit Date ......... : 08/01/21 Admit Phys .................... : KIM VANESSA Date of ....... : 1965 Family Phys ................... : SEQUEIRA Phone .................. : [phone] Age ................................ : 56 Film# .................. .:[id number] Sex ................................. : F Unsigned transcriptions are preliminary reports and do not represent a medical or legal document CT THORAX W/O CONTRAST [id number] COMPLETE:08/03/21 09:43 61117 Reason for Exam: RT RIBCADGE METASTATIC DISEASE PLEURISY LEFT LUNG CT ABD & PELV W/[place] W/[place] [address] COMPLETE:08/03/21 09:42 33361 Reason for Exam: METASTATIC DISEASE PELVIS,BONE, LIVER [...] 08/03/21 15:44, Dictation Date: Copy for: 002 [facility] Copy for: 710 [facility] REC Page 3 of 3 Name Value Range Interpretation Code Description Data Maura rce(s) Supporting Document(s) ID Date Data Source [id number] 08/04/2021 05:26:00 [place] [address] PHONE: [phone] FAX: [phone] Name .................. : JUANITO Daniels Acct Number.................. : [id number] ROOM. ................. : CCU2 MR Number ................... : [id number] Stay type ............. : O/P Discharge Date......... ... : Admit Date ......... : 08/01/21 Admit Phys .................... : KIM MENDEZ Date of ....... : 1965 Family Phys ................... : REGINE GAIL Phone .................. : [phone] Age ................................ : 56 Film# .................. .:[id number] Sex ................................. : F Unsigned transcriptions are preliminary reports and do not represent a medical or legal document DOPPLER VENOUS BILAT LEG [id number] COMPLETE:08/02/21 11:30 05186 Reason for Exam: blood clots ULTRASOUND BILATERAL [...] 08/02/21 21:48, Dictation Date: Copy for: 002 [facility] Copy for: 710 [facility] REC Page 1 of 1 Name Value Range Interpretation Code Description Data Maura rce(s) Supporting Document(s) ID Date Data Source [id number] 08/04/2021 06:31:00 AM EDT [facility] (Osmel Alvarez MD) Name Value Range Interpretation Code Description Data Maura rce(s) Supporting Document(s) Iron [Mass/volume] in Serum or Plasma 29 ug/dL 42-135 Below low normal [facility] (Osmel Alvarez MD) Magnesium [Mass/volume] in Serum or Plasma 1.4 mg/dL 1.7-2.2 Belo w low normal [facility] (Osmel Alvarez MD) ID Date Data Source [id number] 08/04/2021 06:31:00 AM EDT [facility] (Osmel Alvarez [...] (navigational concept) 8.7 mg/dL 8.4-10.2 [facility] (Osmel lAvarez MD) Laboratory test finding (navigational concept) Laboratory [...] >32 mL/min Normal ID Date Data Source [id number] 08/04/2021 06:31:00 AM EDT [facility] (Osmel Alvarez [...] (Osmel Alvarez MD) ID Date Data Source [id number] 08/04/2021 01:55:00 PM EDT [facility] Name Value Range Interpretation Code Description Data Maura rce(s) Supporting Document(s) Iron [Mass/volume] in Serum or Plasma 29 UG/DL 42 - 135 L [facility] ID Date Data Source [id number] 08/04/2021 07:57:00 AM EDT [facility] Name Value Range Interpretation Code Description Data Maura rce(s) Supporting Document(s) Magnesium [Mass/volume] in Serum or Plasma 1.4 MG/DL 1.7 - 2.2 L [facility] ID Date Data Source [id number] 08/04/2021 07:57:00 AM EDT [facility] Name Value Range Interpretation Code Description Data Maura rce(s) Supporting Document(s) COMPREHENSIVE METABOLIC PANEL [facility] COMPREHENSIVE METABOLIC PANEL Sodium [Moles/volume] in Serum or Plasma 138 mEq/L 134 - 153 [facility] Potassium [Moles/volume] in Serum or Plasma 4.1 mEq/L 3.6 - 5.0 [facility] Chloride [Moles/volume] in Serum or Plasma 102 mEq/L 98 - 107 [facility] Carbon dioxide, total [Moles/volume] in Serum or Plasma 27 MEQ/L 22 - 30 [facility] Glucose [Mass/volume] in Serum or Plasma 99 MG/DL 70 - 99 [facility] BUN 18 MG/DL 7 - 21 [facility] Creatinine [Mass/volume] in Serum or Plasma 1.2 MG/DL 0.7 - 1.5 [facility] BUN/CREAT 15 8 - 27 [facility] Protein [Mass/volume] in Serum or Plasma 5.4 G/DL 6.3 - 8.2 L [facility] Albumin [Mass/volume] in Serum or Plasma 3.3 G/DL 3.9 - 5.0 L [facility] Globulin [Mass/volume] in Serum by calculation 2.1 GM/DL 2.4 - 3.2 L [facility] A/G RATIO 1.6 0.8 - 2.0 [facility] Calcium [Mass/volume] in Serum or Plasma 8.7 MG/DL 8.4 - 10.2 [facility] Bilirubin.total [Mass/volume] in Serum or Plasma <0.7 MG/DL 0.2 - 1.3 [facility] Alkaline phosphatase [Enzymatic activity/volume] in Serum or Plasma 133 U/L 38 - 126 H [facility] Aspartate aminotransferase [Enzymatic activity/volume] in Serum or Plasma 28 U/L 5 - 40 [facility] Alanine aminotransferase [Enzymatic activity/volume] in Seru m or Plasma 23 U/L 7 - 56 [facility] Anion gap 3 in Serum or Plasma 9.0 mmol/L 8.0 - 16.0 [facility]GE 56 [facility] AFR AMER GFR 60 mL/min [facility] Male GFR In terprentation 20-49 [...] >32 mL/min Normal ID Date Data Source [id number] 08/04/2021 07:33:00 AM EDT [facility] Name Value Range Interpretation Code Description Data Maura rce(s) Supporting Document(s) CBC W/AUTOMATED DIFF [facility] COMPLETE BLOOD COUNT Leukocytes [#/volume] in Blood by Automated count 4.8 10^3/uL 4.2 - 1 1.0 [facility] Erythrocytes [#/volume] in Blood by Automated count 2.47 10^6/uL 4. 20 - 5.40 L [facility] Hemoglobin [Mass/volume] in Blood 8.4 g/dL 12.0 - 16.0 L [facility] Hematocrit [Volume Fraction] of Blood by Automated count 25.9 % 3 7.0 - 47.0 L [facility] Erythrocyte mean corpuscular volume [Entitic volume] b y Automated count 104.9 fL 81.0 - 101 H [facility] Erythrocyte mean corpuscular hemoglobin [Entitic mass] by Automated count 34.0 pg 27.0 - 34.0 [facility] Erythrocyte mean corpuscular hemoglobin concentration [Mass/volume] by Automated count 32.4 g/dL 31.0 - 36.0 [facility] Erythrocyte distribution width [Ratio] by Automated count 14.2 % 11.5 - 14.5 [facility] Platelets [#/volume] in Blood by Automated count 92 10^3/uL 150 - 450 L [facility] Platelet mean volume [Entitic volume] in Blood by Automated count 10.6 fL 7.4 - 10.4 H [facility] Neutrophils/100 leukocytes in Blood by Automated count 69.5 % 37. 0 - 80.0 [facility] Lymphocytes/100 leukocytes in Blood by Manual count 7.6 % 25.0 - 40.0 L [facility] Monocytes/100 leukocytes in Blood by Automated count 14.3 % 3.0 - 8.0 H [facility] Eosinophils/100 leukocytes in Blood by Automated count 6.7 % 0.0 - 7.0 [facility] Basophils/100 leukocytes in Blood by Automated count 0.4 % 0.0 - 2.5 [facility] %IG 1.5 % 0.0 - 0.0 H [facility] %NRBC 0.0 % 0.0 - [facility] [#/volume] in Blood by Automated count 3.30 10^3/uL 2.00 - 6.90 [facility] Lymphocytes [#/volume] in Blood by Automated count 0.36 10^3/uL 0.60 - 3.40 L [facility] Monocytes [#/volume] in Blood by Automated count 0.68 10^3/uL 0.00 - 0.90 [facility] Eosinophils [#/volume] in Blood by Automated count 0.32 10^3/uL 0.00 - 0.70 [facility] Basophils [#/volume] in Blood by Automated count 0.02 10^3/uL 0.00 - 0.20 [facility] #IG 0.07 10^3/uL 0.00 - 0.10 [facility] #NRBC 0.00 10^3/uL 0.00 - 0.00 [facility] MANUAL DIFF NOT INDICATED [facility] RBC MORPH NOT INDICATED [facility] ID Date Data Source [id number] 08/03/2021 05:12:00 AM EDT [facility] (Osmel Alvarez [...] finding (navigational concept) 4.5 % 0.0-7.0 [facility] (sOmel Alvarez MD) Is patient fasting? N Laboratory [...] (navigational concept) 4.23 10^3/uL 2.00-6.90 [facility] (Osmel lAvarez MD) Is patient fasting? N Laboratory test [...] patient fasting? N ID Date Data Source [id number] 08/03/2021 05:12:00 AM EDT [facility] (Osmel Alvarez MD) Name Value Range Interpretation Code Description Data Maura rce(s) Supporting Document(s) Magnesium [Mass/volume] in Serum or Plasma 1.6 mg/dL 1.7-2.2 [place]o w low normal [facility] (Osmel Alvarez MD) Is patient fasting? N ID Date Data Source [id number] 08/03/2021 05:12:00 AM EDT [facility] (Osmel Alvarez [...] (navigational concept) 17 U/L 7-56 [facility] (Osmel Alvarze MD) Is patient fasting? N Laboratory test [...] patient fasting? N ID Date Data Source [id number] 08/03/2021 07:01:00 AM EDT [facility] Name Value Range Interpretation Code Description Data Maura rce(s) Supporting Document(s) CBC W/AUTOMATED DIFF [facility] COMPLETE BLOOD COUNT Leukocytes [#/volume] in Blood by Automated count 5.5 10^3/uL 4.2 - 1 1.0 [facility] Erythrocytes [#/volume] in Blood by Automated count 2.46 10^6/uL 4. 20 - 5.40 L [facility] Hemoglobin [Mass/volume] in Blood 8.6 g/dL 12.0 - 16.0 L [facility] Hematocrit [Volume Fraction] of Blood by Automated count 25.5 % 3 7.0 - 47.0 L [facility] Erythrocyte mean corpuscular volume [Entitic volume] b y Automated count 103.7 fL 81.0 - 101 H [facility] Erythrocyte mean corpuscular hemoglobin [Entitic mass] by Automated count 35.0 pg 27.0 - 34.0 H [facility] Erythrocyte mean corpuscular hemoglobin concentration [Mass/volume] by Automated count 33.7 g/dL 31.0 - 36.0 [facility] Erythrocyte distribution width [Ratio] by Automated count 14.2 % 11.5 - 14.5 [facility] Platelets [#/volume] in Blood by Automated count 93 10^3/uL 150 - 450 L [facility] Platelet mean volume [Entitic volume] in Blood by Automated count 10.0 fL 7.4 - 10.4 [facility] Neutrophils/100 leukocytes in Blood by Automated count 76.5 % 37. 0 - 80.0 [facility] Lymphocytes/100 leukocytes in Blood by Manual count 5.4 % 25.0 - 40.0 L [facility] Monocytes/100 leukocytes in Blood by Automated count 12.1 % 3.0 - 8.0 H [facility] Eosinophils/100 leukocytes in Blood by Automated count 4.5 % 0.0 - 7.0 [facility] Basophils/100 leukocytes in Blood by Automated count 0.4 % 0.0 - 2.5 [facility] %IG 1.1 % 0.0 - 0.0 H [facility] %NRBC 0.0 % 0.0 - 0.0 [facility] Neutrophils [#/volume] in Blood by Automated count 4.23 10^3/uL 2.00 - 6.90 [facility] Lymphocytes [#/volume] in Blood by Automated count 0.30 10^3/uL 0.60 - 3.40 L [facility] Monocytes [#/volume] in Blood by Automated count 0.67 10^3/uL 0.00 - 0.90 [facility] Eosinophils [#/volume] in Blood by Automated count 0.25 10^3/uL 0.00 - 0.70 [facility] Basophils [#/volume] in Blood by Automated count 0.02 10^3/uL 0.00 - 0.20 [facility] #IG 0.06 10^3/uL 0.00 - 0.10 [facility] #NRBC 0.00 10^3/uL 0.00 - 0.00 [facility] ospital MANUAL DIFF SEE BELOW [facility] ital Segmented neutrophils/100 leukocytes in Blood by Manual count 81 % 37 - 80 H [facility] %LYMPH 6 % 25 - 40 L [facility] %MONO 9 % 3 - 8 H [facility] %EOS 4 % 0 - 7 [facility] RBC MORPH SEE BELOW [facility] Anisocytosis [Presence] in Blood by Light microscopy 1+ SHAUNA L: NONE SEEN A [facility] Macrocytes [Presence] in Blood by Light microscopy 1+ NORMAL: NONE SEEN A [facility] Poikilocytosis [Presence] in Blood by Light microscopy 1+ NOR MAL: NONE SEEN A [facility] { SICKLE CELL (NORMAL: NONE SEEN ) Ovalocytes [Presence] in Blood by Light microscopy 1+ NORMAL: NONE SEEN A [facility] Neutrophils.hypersegmented [Presence] in Blood by Light micr oscopy 2+ NORMAL: NONE SEEN A [facility] Platelet adequacy [Presence] in Blood by Light microscopy DE CREASED NORMAL: NORMAL A [facility] COMMENT: ID Date Data Source [id number] 08/03/2021 06:43:00 AM EDT [facility] Name Value Range Interpretation Code Description Data Maura rce(s) Supporting Document(s) Magnesium [Mass/volume] in Serum or Plasma 1.6 MG/DL 1.7 - 2.2 L [facility] ID Date Data Source [id number] 08/03/2021 06:43:00 AM EDT [facility] Name Value Range Interpretation Code Description Data Maura rce(s) Supporting Document(s) COMPREHENSIVE METABOLIC PANEL [facility] COMPREHENSIVE METABOLIC PANEL Sodium [Moles/volume] in Serum or Plasma 137 mEq/L 134 - 153 [facility] Potassium [Moles/volume] in Serum or Plasma 4.1 mEq/L 3.6 - 5.0 [facility] Chloride [Moles/volume] in Serum or Plasma 99 mEq/L 98 - 107 [facility] Carbon dioxide, total [Moles/volume] in Serum or Plasma 27 MEQ/L 22 - 30 [facility] Glucose [Mass/volume] in Serum or Plasma 102 MG/DL 70 - 99 H [facility] BUN 18 MG/DL 7 - 21 [facility] Creatinine [Mass/volume] in Serum or Plasma 1.2 MG/DL 0.7 - 1.5 [facility] BUN/CREAT 15 8 - 27 [facility] Protein [Mass/volume] in Serum or Plasma 5.2 G/DL 6.3 - 8.2 L [facility] Albumin [Mass/volume] in Serum or Plasma 3.2 G/DL 3.9 - 5.0 L [facility] Globulin [Mass/volume] in Serum by calculation 2.0 GM/DL 2.4 - 3.2 L [facility] A/G RATIO 1.6 0.8 - 2.0 [facility] Calcium [Mass/volume] in Serum or Plasma 8.6 MG/DL 8.4 - 10.2 [facility] Bilirubin.total [Mass/volume] in Serum or Plasma <0.7 MG/DL 0.2 - 1.3 [facility] Alkaline phosphatase [Enzymatic activity/volume] in Serum or Plasma 105 U/L 38 - 126 [facility] Aspartate aminotransferase [Enzymatic activity/volume] in Serum or Plasma 23 U/L 5 - 40 [facility] Alanine aminotransferase [Enzymatic activity/volume] in Seru m or Plasma 17 U/L 7 - 56 [facility] Anion gap 3 in Serum or Plasma 11.0 mmol/L 8.0 - 16.0 [facility] AGE 56 yrs [facility] NON-AA GFR 49 mL/min [facility] AMER GFR 60 mL/min [facility] Male GFR In terprentation 20-49 [...] >32 mL/min Normal ID Date Data Source [id number] 08/01/2021 12:06:00 [place] [address] PHONE: [phone] FAX: [phone] Name .................. : JUANITO Daniels Acct Number.................. : [id number] ROOM. ................. : [id number] Number ................... : [id number] Stay type ............. : E/R Discharge Date......... ... : Admit Date ......... : 07/05 07/24 Admit Phys .................... : LAVERNE STUBBS Date of ....... : 1965 Family Phys ................... : SEQUEIRA Phone .................. : [phone] Age ................................ : 56 Film# .................. .:[id number] Sex ................................. : F Unsigned transcriptions are preliminary reports and do not represent a medical or legal document CHEST PORTABLE [id number] COMPLETE:08/01/21 07:52 [id number] Reason(s): Chest Pain PORTABLE CHEST SINGLE VIEW [...] rce(s) Supporting Document(s) ID Date Data Source [id number] 08/02/2021 06:36:00 AM EDT [facility] (Osmel Alvarez [...] >32 mL/min Normal ID Date Data Source [id number] 08/02/2021 06:36:00 AM EDT [facility] (Osmel Alvarez [...] (Osmel Alvarez MD) ID Date Data Source [id number] 08/02/2021 06:36:00 AM EDT [facility] (Osmel Alvarez [...] (Osmel Alvarez MD) ID Date Data Source [id number] 08/02/2021 06:36:00 AM EDT [facility] (Osmel Alvarez [...] MD ) COMMENT: ID Date Data Source [id number] 08/02/2021 09:48:00 AM EDT [facility] Value Range Interpretation Code Description Data Maura rce(s) Supporting Document(s) Cobalamin (Vitamin B12) [Mass/volume] in Serum or Plasma 346 PG/ML 232 - 1245 [facility] ID Date Data Source [id number] 08/02/2021 09:34:00 AM EDT [facility] Value Range Interpretation Code Description Data Maura rce(s) Supporting Document(s) Iron [Mass/volume] in Serum or Plasma 25 UG/DL 42 - 135 L [facility] ID Date Data Source [id number] 08/02/2021 09:05:00 AM EDT [facility] Value Range Interpretation Code Description Data Maura rce(s) Supporting Document(s) BNP 2923 PG/ML 0 - 125 H [facility] willy ID Date Data Source [id number] 08/02/2021 09:05:00 AM EDT [facility] Name Value Range Interpretation Code Description Data Maura rce(s) Supporting Document(s) COMPREHENSIVE METABOLIC PANEL [facility] COMPREHENSIVE METABOLIC PANEL Sodium [Moles/volume] in Serum or Plasma 136 mEq/L 134 - 153 [facility] Potassium [Moles/volume] in Serum or Plasma 4.4 mEq/L 3.6 - 5.0 [facility] Chloride [Moles/volume] in Serum or Plasma 102 mEq/L 98 - 107 [facility] Carbon dioxide, total [Moles/volume] in Serum or Plasma 30 MEQ/L 22 - 30 [facility] Glucose [Mass/volume] in Serum or Plasma 104 MG/DL 70 - 99 H [facility] BUN 16 MG/DL 7 - 21 [facility] Creatinine [Mass/volume] in Serum or Plasma 1.2 MG/DL 0.7 - 1.5 [facility] BUN/CREAT 13 8 - 27 [facility] Protein [Mass/volume] in Serum or Plasma 5.4 G/DL 6.3 - 8.2 L [facility] Albumin [Mass/volume] in Serum or Plasma 3.3 G/DL 3.9 - 5.0 L [facility] Globulin [Mass/volume] in Serum by calculation 2.1 GM/DL 2.4 - 3.2 L [facility] A/G RATIO 1.6 0.8 - 2.0 [facility] Calcium [Mass/volume] in Serum or Plasma 8.5 MG/DL 8.4 - 10.2 [facility] Bilirubin.total [Mass/volume] in Serum or Plasma <0.7 MG/DL 0.2 - 1.3 [facility] Alkaline phosphatase [Enzymatic activity/volume] in Serum or Plasma 101 U/L 38 - 126 [facility] Aspartate aminotransferase [Enzymatic activity/volume] in Serum or Plasma 20 U/L 5 - 40 [facility] Alanine aminotransferase [Enzymatic activity/volume] in Seru m or Plasma 15 U/L 7 - 56 [facility] Anion gap 3 in Serum or Plasma 4.0 mmol/L 8.0 - 16.0 L [facility] 56 [facility] 49 mL/min [facility] willy AFR AMER GFR 60 mL/min [facility] Male GFR In terprentation 20-49 [...] >32 mL/min Normal ID Date Data Source [id number] 08/02/2021 08:02:00 AM EDT [facility] Name Value Range Interpretation Code Description Data Maura rce(s) Supporting Document(s) CBC W/AUTOMATED DIFF [facility] COMPLETE BLOOD COUNT Leukocytes [#/volume] in Blood by Automated count 7.7 10^3/uL 4.2 - 1 1.0 [facility] Erythrocytes [#/volume] in Blood by Automated count 2.63 10^6/uL 4. 20 - 5.40 L [facility] Hemoglobin [Mass/volume] in Blood 8.9 g/dL 12.0 - 16.0 L [facility] Hematocrit [Volume Fraction] of Blood by Automated count 28.0 % 3 7.0 - 47.0 L [facility] Erythrocyte mean corpuscular volume [Entitic volume] b y Automated count 106.5 fL 81.0 - 101 H [facility] Erythrocyte mean corpuscular hemoglobin [Entitic mass] by Automated count 33.8 pg 27.0 - 34.0 [facility] Erythrocyte mean corpuscular hemoglobin concentration [Mass/volume] by Automated count 31.8 g/dL 31.0 - 36.0 [facility] Erythrocyte distribution width [Ratio] by Automated count 14.6 % 11.5 - 14.5 H [facility] Platelets [#/volume] in Blood by Automated count 109 10^3/uL 150 - 45 0 L [facility] Platelet mean volume [Entitic volume] in Blood by Automated count 9.8 fL 7.4 - 10.4 [facility] Neutrophils/100 leukocytes in Blood by Automated count 86.2 % 37. 0 - 80.0 H [facility] Lymphocytes/100 leukocytes in Blood by Manual count 3.9 % 25.0 - 40.0 L [facility] Monocytes/100 leukocytes in Blood by Automated count 6.0 % 3.0 - 8.0 [facility] Eosinophils/100 leukocytes in Blood by Automated count 3.0 % 0.0 - 7.0 [facility] Basophils/100 leukocytes in Blood by Automated count 0.4 % 0.0 - 2.5 [facility] %IG 0.5 % 0.0 - 0.0 H [facility] %NRBC 0.0 % 0.0 - 0.0 [facility] Neutrophils [#/volume] in Blood by Automated count 6.62 10^3/uL 2.00 - 6.90 [facility] Lymphocytes [#/volume] in Blood by Automated count 0.30 10^3/uL 0.60 - 3.40 L [facility] Monocytes [#/volume] in Blood by Automated count 0.46 10^3/uL 0.00 - 0.90 [facility] Eosinophils [#/volume] in Blood by Automated count 0.23 10^3/uL 0.00 - 0.70 [facility] Basophils [#/volume] in Blood by Automated count 0.03 10^3/uL 0.00 - 0.20 [facility] #IG 0.04 10^3/uL 0.00 - 0.10 [facility] #NRBC 0.00 10^3/uL 0.00 - 0.00 [facility]spital MANUAL DIFF SEE BELOW [facility] ital Segmented neutrophils/100 leukocytes in Blood by Manual count 84 % 37 - 80 H [facility] %LYMPH 6 % 25 - 40 L [facility] %MONO 3 % 3 - 8 [facility] %EOS 7 % 0 - 7 [facility] RBC MORPH SEE BELOW [facility] Anisocytosis [Presence] in Blood by Light microscopy 2+ SHAUNA L: NONE SEEN A [facility] HYPO 1+ NORMAL: NONE SEEN A [facility] { SICKLE CELL (NORMAL: NONE SEEN ) Platelet adequacy [Presence] in Blood by Light microscopy DE CREASED NORMAL: NORMAL A [facility] COMMENT: ID Date Data Source [id number] 08/02/2021 07:58:00 AM EDT [facility] Name Value Range Interpretation Code Description Data Maura rce(s) Supporting Document(s) Magnesium [Mass/volume] in Serum or Plasma 1.7 MG/DL 1.7 - 2.2 [facility] ID Date Data Source [id number] 08/02/2021 07:28:00 AM EDT [facility] Name Value Range Interpretation Code Description Data Maura rce(s) Supporting Document(s) Lactate [Moles/volume] in Serum or Plasma 0.7 MMOL/L 0.2 - 2.2 [facility] ID Date Data Source [id number] 08/02/2021 07:03:00 AM EDT [facility] Name Value Range Interpretation Code Description Data Maura rce(s) Supporting Document(s) Fibrin D-dimer FEU [Mass/volume] in Platelet poor plasma 3.59 ug /mL 0.27 - 0.50 H [facility] ID Date Data Source [id number] 08/01/2021 06:43:00 AM EDT [facility] 1 OrderSheet [facility] Emergency Department [address] [place] [address] Phone #: ext- [phone] 08/01/2021 06:43 [id number] Sex: F : 1965 Age: 56yWEIGHT:74.8 kg [...] M.D.;DIAGNOSTIC STUDY ORDERSOrder Description Priority Entered [facility]ged [facility] STAT 07:52 08/01/2021 Ack'd: 08:00 08:06 Tyrell (Oxygen? Maria T Galloway Amber Hagenston RN(Yes)) Leida; R.N. Reason for Study: Chest PainCT CTA CHEST STAT 08:52 08/01/2021 09:14 Chata(NONCOR) Maria T Jones RNINC PP Leida;(Oxygen?(No))(IV?(Yes)) 2 OrderSheet [facility] Emergency Department [address] [place] [address] Phone #: ext- [phone] 08/01/2021 06:43 Patient: [...] Dr Mahajan/125 mL (1 admissionmg/mL)) orderOrders per Integrity Analyst: ); Maria T Galloway M.D.GENERAL ORDERSOrder Description Priority Entered Acknowledged InitialedBlood Pressure 07:52 08/01/2021 07:55 DorisMonitor Maria T Galloway RN, M.D.;Grinder Set Up Operator Universal 07:52 08/01/2021 07:55 Chata(continuous) Maria T Galloway [...] Maria T Galloway RN, M.D.; 3 OrderSheet [facility] Emergency Department [address] [place] [address] Phone #: ext- [phone] 08/01/2021 06:43 Patient: [...] rce(s) Supporting Document(s) ID Date Data Source [id number] 08/01/2021 06:43:00 AM EDT [facility] 1 Medication Reconciliation Report [facility] Emergency Department [address] [place] [address] Phone #: ext- [phone] 08/01/2021 06:43 Patient: [...] Home Medication information: 2 Medication Reconciliation Report [facility] Emergency Department [address] [place] [address] Phone #: ext- [phone] 08/01/2021 06:43 Patient: [...] rce(s) Supporting Document(s) ID Date Data Source [id number] 08/01/2021 06:43:00 AM EDT [facility] 1 Medication Administration Record [facility] Emergency Department [address] [place] [address] Phone #: ext- [phone] 08/01/2021 06:43 Patient: CHANTALE SOLOMON Sex: F : 1965 Age: 56yWeight: 74.8 kgHeight/Length: 60 inBMI: 32.2ALLERGIES: Penicillins, Seafood Date/Time Medication Administered Medication OrderedGiven ASPIRIN CHEWABLE 81 MG [PO] Aspirin PO Chewable 81 mg 04819:[id number] 08/01/2021 Dose: 162 mg Tablets PO mg [...] rce(s) Supporting Document(s) ID Date Data Source [id number] 08/01/2021 06:43:00 AM EDT [facility] 1 General Instructions [facility] Emergency Department [address] [place] [address] Phone #: ext- [phone] 08/01/2021 06:43 Patient: CHANTALE SOLOMON Sex: F : 1965 Age: 56yChronic, paroxysmal atrial fibrillation with controlled rate.Previous pulmonary embolism. No acute cor pulmonale.(Electronically signed by Maria T Galloway M.D. 08/01/2021 12:21) Name Value Range Interpretation Code Description Data Maura rce(s) Supporting Document(s) ID Date Data Source [id number] 08/01/2021 06:43:00 AM EDT [facility] 1 Clinical Report - Nurses [facility] Emergency Department [address] [place] [address] Phone #: [phone] 08/01/2021 06:43 Patient: CHATNALE SOLOMON Sex: F : 1965 Age: 56yTRIAGEArrived by private vehicle. Historian: patient. ( PER PT HERE FOR A -FIB PT C/O PAIN RIGHTBREAST AREA).Acuity: LEVEL 3.Chief Complaint: CHEST PAIN.This started just prior to arrival. She has had difficulty breathing. 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 --06:51 08/01/21 Naima Jade R.N.06:47 08/01/21. BP: [...] Jade R.N.PROBLEMS: 2 Clinical Report - Nurses [facility] Emergency Department [address] [place] [address] Phone #: ext- [phone] 08/01/2021 06:43 Patient: [...] R.N.11:10 08/01/21. 3 Clinical Report - Nurses [facility] Emergency Department [address] [place] [address] Phone #: ext- [phone] 08/01/2021 06:43 Patient: [...] care for this patient has been created. telemetry monitor placed on patient. Patient gowned.Head of [...] Barrera RN 4 Clinical Report - Nurses [facility] Emergency Department [address] [place] [address] Phone #: ext- [phone] 08/01/2021 06:43 Patient: [...] RR: 20. O2 saturation: 100%. --09:31 08/01/21 [place] gang punch operatorFlorian, ER Tech1 09:15 08/01/21. BP: 99/66. MAP: 77. HR: 101. RR: 16. O2 saturation: 100%. --09:32 08/01/21 [facility] Florian Del Rosario ER Tech1 09:34 08/01/21. Patient transported to [place] by wheelchair with mask and it technical specialist. --09:34 08/01/21 Chata Barrera RN 10:08 08/01/21. [...] Niru Whitlock R.N. 11:08/01/21. Departure time: 11:08/01/2021. [place] Coma Scale: 15- eyes open- spontaneous (4); best verbal response- oriented (5); best motor response- obeys commands (6). Condition at departure: stable. Disposition: observation in the Acute Inpatient Unit, Monitored for further evaluation and cardiac 5 Clinical Report - Nurses [facility] Emergency Department [address] [place] [address] Phone #: ext- [phone] 08/01/2021 06:43 [id number] Sex: F : 1965 Age: 56y monitoring. 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 2 Clinical Report - Physicians/Mid [facility] Emergency Department [address] [place] [address] Phone #: ext- [phone] 08/01/2021 06:43 Patient: CHANTALE SOLOMON [facility]#: [id number] Sex: F : 1965 Age: 56y Additional [...] supple. 3 Clinical Report - Physicians/Mid Levels [facility] Emergency Department [address] [place] [address] Phone #: ext- [phone] 08/01/2021 06:43 [id number] Sex: F : 1965 Age: 56y CVS: [...] 0.00) 4 Clinical Report - Physicians/Mid Levels [facility] Emergency Department [address] [place] [address] Phone #: ext- [phone] 08/01/2021 06:43 Patient: CHANTALE SOLOMON [facility]#: [id number] Sex: F : 1965 Age: 56y MANUAL [...] Male GFR Interprentation 20-49 yrs >60 mL/min Duqxpw50-78 yrs >56 mL/min Normal 60-69 yrs >49 mL/min Normal 70-79yrs>42 mL/min Normal 80 and above >35 mL/min Normal Female GFRInterpretation 20-39 yrs >60 mL/min Normal 40-49 yrs >58 mL/minNormal 50-59 yrs >51 mL/min Normal 60-69 yrs >45 mL/min Ewnlna55-35 yrs >39 mL/min Normal 80 and above [...] 125) 5 Clinical Report - Physicians/Mid Levels [facility] Emergency Department [address] [place] [address] Phone #: ext- [phone] 08/01/2021 06:43 Patient: CHANTALE SOLOMON Sex: F : 1965 Age: 56yTSH: (SARAH: 08/01/2021 08:01) ( MsgRcvd 08/01/2021 08:45) Final results Test Result Flag Units (Reference) TSH 1.25 uIU/mL (0.47 - 5.01)Lipase: (SARAH: 08/01/2021 08:01) ( [facility] 08/01/2021 08:32) Final results Test Result Flag Units (Reference) LIPASE 18 U/L (13 - 60)Chest Portable 1 View: (SARAH: 08/01/2021 07:52) ( [facility] 08/01/2021 08:43) In Progress [place] [address] PHONE: [phone] FAX: [phone] Name .................. : JUANITO Daniels Acct Number.................. : [id number] ROOM. ................. : TR06 Number ................... : [id number] Stay type ............. : E/R Discharge Date......... ... : Admit Date ......... : 08/01/21 Admit Phys .................... : LAVERNE STUBBS Date of ....... : 1965 Family Phys ................... : SEQUEIRA Phone .................. : [phone] Age ................................ : 56 Film# .................. .:[id number] Sex ................................. : F Unsigned transcriptions are preliminary reports and do not represent a medical or legal document CHEST PORTABLE [id number] COMPLETE:08/01/21 07:52 [id number] Reason(s): Chest Pain PORTABLE CHEST SINGLE VIEW [...] Date: 6 Clinical Report - Physicians/Mid Levels [facility] Emergency Department [address] [place] [address] Phone #: ext- [phone] 08/01/2021 06:43 Patient: CHANTALE SOLOMON Sex: F [...] 08/01/2021 12:21) 7Clinical Report - Physicians/Mid Levels [facility] Emergency Department [address] [place] [address] Phone #: ext- [phone] 08/01/2021 06:43 Patient: CHANTALE SOLOMON Sex: F : 1965 Age: 56y Name Value Range Interpretation Code Description Data Maura rce(s) Supporting Document(s) ID Date Data Source [id number] 08/01/2021 12:09:00 PM EDT [facility] [address] [place] [address] PHONE: [phone] FAX: [phone] Name .................. : JUANITO Daniels Acct Number.................. : [id number] ROOM. ................. : CCU2 MR Number ................... : [id number] Stay type ............. : O/P Discharge Date......... ... : Admit Date ......... : 07/05 07/24 Admit Phys .................... : KIM VANESSA Date of ....... : 1965 Family Phys ................... : SEQUEIRA Phone .................. : [phone] Age ................................ : 56 Film# .................. .:[id number] Sex ................................. : F Unsigned transcriptions are preliminary reports and do not represent a medical or legal document CT CTA CHEST NON-CORONARY Luciana Stoddard 79942 COMPLETE:08/01/21 09:59 FILOMENA 02868 Reason(s): chest pain, a. fib. hx of [...] pedicle hooks T4-T11. Page 1 of 2 [place] [address] PHONE: [phone] FAX: [phone] Name .................. : JUANITO Daniels Acct Number.................. : [id number] ROOM. ................. : CCU2 Number ................... : [id number] Stay type ............. : O/P Discharge Date......... ... : Admit Date ......... : 08/01/21 Admit Phys .................... : KIM VANESSA Date of ....... : 1965 Family Phys ................... : SEQUEIRA Phone .................. : [phone] Age ................................ : 56 Film# .................. .:[id number] Sex ................................. : F Unsigned transcriptions are preliminary reports and do not represent a medical or legal document CT CTA CHEST NON-CORONARY W C 40525 COMPLETE:08/01/21 09:59 FILOMENA 51852 Reason(s): chest pain, a. fib. hx of [...] rce(s) Supporting Document(s) ID Date Data Source [id number] 08/01/2021 08:54:00 AM EDT [facility] Name Value Range Interpretation Code Description Data Maura rce(s) Supporting Document(s) CBC W/AUTOMATED DIFF [facility] COMPLETE BLOOD COUNT Leukocytes [#/volume] in Blood by Automated count 10.8 10^3/uL 4.2 - 11.0 [facility] Erythrocytes [#/volume] in Blood by Automated count 2.69 10^6/uL 4. 20 - 5.40 L [facility] Hemoglobin [Mass/volume] in Blood 9.3 g/dL 12.0 - 16.0 L [facility] Hematocrit [Volume Fraction] of Blood by Automated count 28.7 % 3 7.0 - 47.0 L [facility] Erythrocyte mean corpuscular volume [Entitic volume] b y Automated count 106.7 fL 81.0 - 101 H [facility] Erythrocyte mean corpuscular hemoglobin [Entitic mass] by Automated count 34.6 pg 27.0 - 34.0 H [facility] Erythrocyte mean corpuscular hemoglobin concentration [Mass/volume] by Automated count 32.4 g/dL 31.0 - 36.0 [facility] Erythrocyte distribution width [Ratio] by Automated count 14.6 % 11.5 - 14.5 H [facility] Platelets [#/volume] in Blood by Automated count 135 10^3/uL 150 - 45 0 L [facility] Platelet mean volume [Entitic volume] in Blood by Automated count 9.6 fL 7.4 - 10.4 [facility] Neutrophils/100 leukocytes in Blood by Automated count 91.4 % 37. 0 - 80.0 H [facility] Lymphocytes/100 leukocytes in Blood by Manual count 2.9 % 25.0 - 40.0 L [facility] Monocytes/100 leukocytes in Blood by Automated count 2.2 % 3.0 - 8.0 L [facility] Eosinophils/100 leukocytes in Blood by Automated count 2.5 % 0.0 - 7.0 [facility] Basophils/100 leukocytes in Blood by Automated count 0.4 % 0.0 - 2.5 [facility] %IG 0.6 % 0.0 - 0.0 [facility] 0.0 % 0.0 - 0.0 [facility] al Neutrophils [#/volume] in Blood by Automated count 9.90 10^3/uL 2.00 - 6.90 H [facility] Lymphocytes [#/volume] in Blood by Automated count 0.31 10^3/uL 0.60 - 3.40 L [facility] Monocytes [#/volume] in Blood by Automated count 0.24 10^3/uL 0.00 - 0.90 [facility] Eosinophils [#/volume] in Blood by Automated count 0.27 10^3/uL 0.00 - 0.70 [facility] Basophils [#/volume] in Blood by Automated count 0.04 10^3/uL 0.00 - 0.20 [facility] #IG 0.06 10^3/uL 0.00 - 0.10 [facility] #NRBC 0.00 10^3/uL 0.00 - 0.00 [facility] ospital MANUAL DIFF SEE BELOW [facility] ital Segmented neutrophils/100 leukocytes in Blood by Manual count 97 % 37 - 80 H [facility] %LYMPH 2 % 25 - 40 L [facility] %MONO 1 % 3 - 8 L [facility] RBC MORPH [facility]OW [facility] Anisocytosis [Presence] in Blood by Light microscopy 1+ SHAUNA L: NONE SEEN A [facility] Macrocytes [Presence] in Blood by Light microscopy 1+ NORMAL: NONE SEEN A [facility] HYPO 1+ NORMAL: NONE SEEN A [facility] { SICKLE CELL (NORMAL: NONE SEEN ) Platelet adequacy [Presence] in Blood by Light microscopy NORMAL NORMAL: NORMAL [facility] COMMENT: ID Date Data Source [id number] 08/01/2021 08:50:00 AM EDT [facility] Name Value Range Interpretation Code Description Data Maura rce(s) Supporting Document(s) BNP 2271 PG/ML 0 - 125 H [facility] willy ID Date Data Source [id number] 08/01/2021 08:50:00 AM EDT [facility] Name Value Range Interpretation Code Description Data Maura rce(s) Supporting Document(s) TROPONIN T 0.02 NG/ML 0.00 - 0.10 [facility] spital TROPONIN T0.1 ng/ml Recommended as the c linical threshold value forTroponin T. ID Date Data Source [id number] 08/01/2021 08:45:00 AM EDT [facility] Value Range Interpretation Code Description Data Maura rce(s) Supporting Document(s) Thyrotropin [Units/volume] in Serum or Plasma by Detec tion limit <= 0.05 mIU/L 1.25 uIU/mL 0.47 - 5.01 [facility] ID Date Data Source [id number] 08/01/2021 08:33:00 AM EDT [facility] Value Range Interpretation Code Description Data Maura rce(s) Supporting Document(s) COMPREHENSIVE METABOLIC PANEL [facility] COMPREHENSIVE METABOLIC PANEL Sodium [Moles/volume] in Serum or Plasma 138 mEq/L 134 - 153 [facility] Potassium [Moles/volume] in Serum or Plasma 4.6 mEq/L 3.6 - 5.0 [facility] Chloride [Moles/volume] in Serum or Plasma 103 mEq/L 98 - 107 [facility] Carbon dioxide, total [Moles/volume] in Serum or Plasma 27 MEQ/L 22 - 30 [facility] Glucose [Mass/volume] in Serum or Plasma 110 MG/DL 70 - 99 H [facility] BUN 16 MG/DL 7 - 21 [facility] Creatinine [Mass/volume] in Serum or Plasma 1.1 MG/DL 0.7 - 1.5 [facility] BUN/CREAT 15 8 - 27 [facility] al Protein [Mass/volume] in Serum or Plasma 6.0 G/DL 6.3 - 8.2 L [facility] Albumin [Mass/volume] in Serum or Plasma 3.4 G/DL 3.9 - 5.0 L [facility] Globulin [Mass/volume] in Serum by calculation 2.6 GM/DL 2.4 - 3.2 [facility] A/G RATIO 1.3 0.8 - 2.0 [facility] Calcium [Mass/volume] in Serum or Plasma 8.8 MG/DL 8.4 - 10.2 [facility] Bilirubin.total [Mass/volume] in Serum or Plasma <0.7 MG/DL 0.2 - 1.3 [facility] Alkaline phosphatase [Enzymatic activity/volume] in Serum or Plasma 92 U/L 38 - 126 [facility] Aspartate aminotransferase [Enzymatic activity/volume] in Serum or Plasma 18 U/L 5 - 40 [facility] Alanine aminotransferase [Enzymatic activity/volume] in Seru m or Plasma 13 U/L 7 - 56 [facility] Anion gap 3 in Serum or Plasma 8.0 mmol/L 8.0 - 16.0 [facility] AGE 56 yrs [facility] NON-AA GFR 55 mL/min [facility] willy AFR AMER GFR >60 mL/min [facility] Ho spital Male GFR In terprentation 20-49 [...] >32 mL/min Normal ID Date Data Source [id number] 08/01/2021 08:32:00 AM EDT [facility] Name Value Range Interpretation Code Description Data Maura rce(s) Supporting Document(s) Lipase [Enzymatic activity/volume] in Serum or Plasma 18 U/L 13 - 60 [facility] ID Date Data Source [id number] 07/31/2021 10:19:00 [place] [address] RESPIRATORY CARE REPORT ==== ---------NAME------- NUMBER SEX AGE ADMIT DISC. XRAY# F/C OSMANISUREKHAIVÁNJUSTYN Daniels [id number] F 56 07/31/21 07/31/21 [id number] BBF E/R DATE OF : 1965 M/R# [id number] PH#: [phone] LOCATION: EMERGENCY DEPT EKG 93198 COMPLE TE:07/31/21 13:13 CLC 86060 EKG 85520 COMPLETE:07/31/21 13:13 CLC 62924 PHYSICIAN: BRENDA Stoddard Name Value Range Interpretation Code Description Data Maura rce(s) Supporting Document(s) ID Date Data Source [id number] 07/31/2021 03:32:00 [place] [address] PHONE: [phone] FAX: [phone] Name .................. : JUANITO KYLEKULDIP Daniels Acct Number.................. : [id number] ROOM. ................. : Number ................... : [id number] Stay type ............. : E/R Discharge Date......... ... : Admit Date ......... : 07/05 06/23 Admit Phys .................... : BRENDA Stoddard Date of ....... : 1965 Family Phys ................... : SEQUEIRA Phone .................. : [phone] Age ................................ : 56 Film# .................. .:[id number] Sex ................................. : F Unsigned transcriptions are preliminary reports and do not represent a medical or legal document CHEST PORTABLE 45216 COMPLETE:07/31/21 10:30 KBO 81383 Reason(s): Shortness of Breath PORTABLE CHEST SINGLE [...] abnormality is noted. Page 1 of 2 [place] [address] PHONE: [phone] FAX: [phone] Name .................. : JUANITO Daniels Acct Number.................. : [id number] ROOM. ................. : VT-06 MR Number ................... : [id number] Stay type ............. : E/R Discharge Date......... ... : Admit Date ......... : 07/31/21 Admit Phys .................... : BRENDA Stoddard Date of ....... : 1965 Family Phys ................... : SEQUEIRA Phone .................. : [phone] Age ................................ : 56 Film# .................. .:[id number] Sex ................................. : F Unsigned transcriptions are preliminary reports and do not represent a medical or legal document CHEST PORTABLE 22134 COMPLETE:07/31/21 10:30 KBO 78980 Reason(s): Shortness of Breath Electronically Reviewed and Signed By Doyle Leblanc MD , 07/31/21 15:32, SCB Transcribe Initials: SSR, Transcribe Date: 07/31/21 10:53, Dictation Date: Copy for: EMERGENCY DEPT via modem Copy for: 710 MED REC DISCHARGED Page 2 of 2 Name Value Range Interpretation Code Description Data Maura rce(s) Supporting Document(s) ID Date Data Source [id number] 07/31/2021 09:35:00 AM EDT [facility] 1 OrderSheet [facility] Emergency Department [address] [place] [address] Phone #: ext - [phone] 07/31/2021 09:34 [...] Cadet ; Vaughn RNEKG 10:57 07/31/2021 11:07 [place] ED 2 OrderSheet [facility] Emergency Department [address] [place] [address] Phone #: ext- [phone] 07/31/2021 09:34 Patient: CAHNTALE SOLOMON Sex: F : 1965 Age: 56y Rory Gomez ; Nicky Del Rosario Tech1[Electronically signed by Yandel Mendes RN (13:30 07/31/2021)][Electronically signed by Rory Gomez (15:07 07/31/2021)][Electronically locked by Yandel Mendes RN (13:30 07/31/2021)] Name Value Range Interpretation Code Description Data Maura rce(s) Supporting Document(s) ID Date Data Source [id number] 07/31/2021 09:35:00 AM EDT [facility] 1 Medication Reconciliation Report [facility] Emergency Department [address] [place] [address] Phone #: ext- [phone] 07/31/2021 09:34 Patient: CHANTALE SOLOMON Sex: F [...] Home Medication information: 2 Medication Reconciliation Report [facility] Emergency Department [address] [place] [address] Phone #: ext- [phone] 07/31/2021 09:34 Patient: [...] rce(s) Supporting Document(s) ID Date Data Source [id number] 07/31/2021 09:35:00 AM EDT [facility] 1 Medication Administration Record [facility] Emergency Department [address] [place] [address] Phone #: ext- [phone] 07/31/2021 09:34 Patient: CHANTALE SOLOMON Sex: F : 1965 Age: 56yWeight: 74.8 kgHeight/Length: 60 inBMI: 32.2ALLERGIES: Penicillins, Seafood Date/Time Medication Administered Medication OrderedGiven LOPRESSOR [IVP] (METOPROLOL Lopressor IVP 5 mg (NOW x1,10:22 07/31/2021 TARTRATE) HIGH ALERT MEDICATION)Yandel Mendes RN Dose: 5 mg IVP Site: #1 MidlineStart NS [IV] NS IV 1000 mL Bolus: : Bolus [id number] 07/31/2021 Dose: IV Fluids mL (X1)Yandel Mendes RN Bolus: 1000 mL over 40 minute(s)---- Dispensed: 1000 mL bagStop Site: #1 Uuvsohf45:11 07/31/2021Terry MARK Mendes Name Value Range Interpretation Code Description Data Maura rce(s) Supporting Document(s) ID Date Data Source [id number] 07/31/2021 09:35:00 AM EDT [facility] 1 General Instructions [facility] Emergency Department [address] [place] [address] Phone #: ext- [phone] 07/31/2021 09:34 Patient: [...] patient.Follow-up with: Osmel Alvarez MD, Cardiology, , [address] [place] [address], [facility] Follow up in two days if not better. Call for an appointment. Reason for referral: evaluation. ADDITIONAL INFORMATIONAtrial Fibrillation 2 General Instructions [facility] Emergency Department [address] [place] [address] Phone #: ext- [phone] 07/31/2021 09:34 Patient: CHANTAEL SOLOMON Sex: F : 1965 Age: 56yAtrial [...] a couple ofdays. Or it may become intermediate designer (chronic), lasting for months at a time [...] heart valves Enlarged heart 3 General Instructions [facility] Emergency Department [address] [place] [address] Phone #: ext- [phone] 07/31/2021 09:34 Patient: CHANTALE SOLOMON Sex: F [...] work as they should. 4 General Instructions [facility] Emergency Department [address] [place] [address] Phone #: ext- [phone] 07/31/2021 09:34 Patient: [...] vision Extreme drowsiness, confusion, dizziness, or fainting [id number] [employer] [address] [place] [address]. All rights reserved. This information is not intended as asubstitute for professional medical care. Always follow your healthcare professional's instructions.Anemia, Type Not Specified (Adult) 5 General Instructions [facility] Emergency Department [address] [place] [address] Phone #: ext- [phone] 07/31/2021 09:34 Patient: [...] own healthcare provider to get the results.Call [address] [place] [address] or get immediate medical care if any of the following occur: Shortness of breath or chest pain Dizziness or fainting gets worse Vomiting blood or passing red or black-colored stool [phone] [employer] [address] [place] [address], [place] [address]. All rights reserved. 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 Always follow your healthcare professional's instructions. You have been given the following additional information: Atrial Fibrillation Anemia, Type Not Specified (Adult)(Electronically signed by Rory Gomez 07/31/2021 15:07) Name Value Range Interpretation Code Description Data Maura rce(s) Supporting Document(s) ID Date Data Source [id number] 07/31/2021 09:35:00 AM EDT [facility] 1 Clinical Report - Nurses [facility] Emergency Department [address] [place] [address] Phone #: ext [phone] 07/31/2021 09:34 Patient: CHANTALE SOLOMON Sex: F [...] No sweating episodes, nausea, vomiting, fever orcough.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 --09:52 07/31/21 Yandel Mendes, MARK09:44 07/31/21. BP: [...] Mendes RN.AllergiesPenicillins. 2 Clinical Report - Nurses [facility] Emergency Department [address] [place] [address] Phone #: ext- [phone] 07/31/2021 09:34 Patient: [...] liters. 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 O2 saturation: 100%. --10:02 07/31/21 [facility] Yane Del Rosario10:15 07/31/2021 Site [...] RR: 19. O2 saturation: 100%. --11:08 07/31/21 [facility] time: (10:58 07/31/2021). EKG was performed by a tech and shown to the ED physician. --11: [facility] Nicky Del Rosario Epzi259:11 07/31/2021 Lopressor IVP Response: symptoms have improved [...] RR: 18. O2 saturation: 100%. --11:34 07/31/21 [facility] Nicky Del [facility] Ctrx043:45 07/31/2021 Site #1 removed upon discharge. Catheter intact. Bandaid applied (infusa port flushedwith hep lock 300 units). --12:08 07/31/21 aYndel Mendes RN. 4 Clinical Report - Nurses [facility] Emergency Department [address] [place] [address] Phone #: ext- [phone] 07/31/2021 09:34 Patient: CHANTALE SOLOMON Sex: F : 1965 Age: 56yDISPOSITION / DISCHARGE 11:47 07/31/21. BP: 104/78. HR: 84. RR: 16. O2 saturation: 100%. Temp: 98.6 F. Pain level now 03/12. 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 Departure time: 11:50 07/31/2021. Condition at departure: improved. Reviewed medication(s) (no changes). Reviewed referral to a heel shaver. Patient verbalized understanding. Written instructions provided in Cymro. The patient was discharged by the physician. She was discharged home. She left ambulatory and via private vehicle. Patient driving. --12:09 07/31/21 Yandel Mendes RN.Locked/Released at 07/31/2021 13:30 by Yandel Mendes RN Name Value Range Interpretation Code Description Data Maura rce(s) Supporting Document(s) ID Date Data Source [id number] 07/31/2021 09:35:00 AM EDT [facility] 1 Clinical Report - Physicians/Mid Levels [facility] Emergency Department [address] [place] [address] Phone #: ext- [phone] 07/31/2021 09:34 Patient: CHANTALE SOLOMON Sex: F [...] Ligation. 2 Clinical Report - Physicians/Mid Levels [facility] Emergency Department [address] [place] [address] Phone #: ext- [phone] 07/31/2021 09:34 [id number] Sex: F : 1965 Age: 56y Medications: [...] No sensory deficit. 3 Clinical Report - Physicians/[facility] Emergency Department [address] [place] [address] Phone #: ext- [phone] 07/31/2021 09:34 Patient: CHANTALE SOLOMON Sex: F [...] 2.5) 4 Clinical Report - Physicians/Mid Levels [facility] Emergency Department [address] [place] [address] Phone #: ext- [phone] 07/31/2021 09:34 Patient: [...] SHAUNA COMMENT: Magnesium: (SARAH: 07/31/2021 10:21) ( [facility] 07/31/2021 11:00) Final results Test Result Flag Units (Reference) MAGNESIUM 1.9 MG/DL (1.7 - 2.2)Troponin-T: (SARAH: 07/31/2021 10:21) ( [facility] 07/31/2021 10:48) Final results Test Result Flag Units (Reference) TROPONIN T 0.02 NG/ML (0.00 - 0.10) TROPONIN T0.1 ng/ml Recommended as the clinical threshold value Kathie MaxwellChest Portable 1 View: (SARAH: 07/31/2021 10:05) ( MsgRcvd 07/31/2021 10:53) In ProgressCHEST PORTABLEReason(s): Shortness of BreathTRANSP ORTATION: P IV? O2? Oxygen?(Yes) Room: E Exam CHEST PORTABLE [facility] [address] [place] [address] PHONE: [phone] FAX: [phone] Name .................. : JUANITO Daniels Acct Number.................. : [id number] ROOM. ................. : VT-06 MR Number ................... : [id number] Stay type ............. : E/R Discharge Date......... ... : Admit Date ......... : 07/31/21 Admit Phys .................... : BRENDA Stoddard Date of ....... : 1965 Family Phys ................... : SEQUEIRA Phone .................. : [phone] Age ................................ : 56 Film# .................. .:[id number] Sex ................................. : F Unsigned transcriptions are preliminary reports and do not represent a medical or legal document CHEST PORTABLE [id number] COMPLETE:07/31/21 10:30 KBO 00236 Reason(s): Shortness of Breath 5 Clinical Report - Physicians/Mid Levels [facility] Emergency Department [address] [place] [address] Phone #: ext- [phone] 07/31/2021 09:34 Patient: CHANTALE SOLOMON Sex: F [...] acute abnormality is noted. Page 1of [address] [place] [address] PHONE: [phone] FAX: [phone] Name .................. : JUANITO Daniels Acct Number.................. : [id number] ROOM. ................. : MR Number ................... : [id number] Stay type ............. : E/R Discharge Date......... ... : Admit Date ......... : 07/31/21 Admit Phys .................... : BRENDA Stoddard Date of ....... : 1965 Family Phys ................... : SEQUEIRA Phone .................. : [phone] Age ................................ : 56 Film# .................. .:[id number] Sex ................................. : F Unsigned transcriptions are preliminary reports and do not represent a medical or legal document CHEST PORTABLE [id number] COMPLETE:07/31/21 10:30 KBO 42348 Reason(s): Shortness of Breath Electronically Reviewed and Signed By DCTNAME , SIGNDATE, HEATHB Transcribe Initials: NARESH, Transcribe Date: 07/31/21 10:53, Dictation Date: 6 Clinical Report - Physicians/Mid Levels [facility] Emergency Department [address] [place] [address] Phone #: [phone] 07/31/2021 09:34 Patient: CHANTALE SOLOMON Sex: F [...] daily. 7 Clinical Report - Physicians/Mid Levels [facility] Emergency Department [address] [place] [address] Phone #: ext- [phone] 07/31/2021 09:34 Patient: [...] Follow-up with: Osmel Alvarez MD, Cardiology, , [address] [place] [address], [address] Follow up in two days if not better. Call for an appointment. Reason for referral: evaluation.(Electronically signed by Rory Gomez 07/31/2021 15:07) Name Value Range Interpretation Code Description Data Maura rce(s) Supporting Document(s) ID Date Data Source [id number] 07/31/2021 11:05:00 AM EDT [facility] Name Value Range Interpretation Code Description Data Maura rce(s) Supporting Document(s) CBC W/AUTOMATED DIFF [facility] COMPLETE BLOOD COUNT Leukocytes [#/volume] in Blood by Automated count 12.4 10^3/uL 4.2 - 11.0 H [facility] Erythrocytes [#/volume] in Blood by Automated count 2.81 10^6/uL 4. 20 - 5.40 L [facility] Hemoglobin [Mass/volume] in Blood 9.9 g/dL 12.0 - 16.0 L [facility] Hematocrit [Volume Fraction] of Blood by Automated count 30.4 % 3 7.0 - 47.0 L [facility] Erythrocyte mean corpuscular volume [Entitic volume] b y Automated count 108.2 fL 81.0 - 101 H [facility] Erythrocyte mean corpuscular hemoglobin [Entitic mass] by Automated count 35.2 pg 27.0 - 34.0 H [facility] Erythrocyte mean corpuscular hemoglobin concentration [Mass/volume] by Automated count 32.6 g/dL 31.0 - 36.0 [facility] Erythrocyte distribution width [Ratio] by Automated count 14.8 % 11.5 - 14.5 H [facility] Platelets [#/volume] in Blood by Automated count 174 10^3/uL 150 - 45 0 [facility] Platelet mean volume [Entitic volume] in Blood by Automated count 9.6 fL 7.4 - 10.4 [facility] Neutrophils/100 leukocytes in Blood by Automated count 91.5 % 37. 0 - 80.0 H [facility] Lymphocytes/100 leukocytes in Blood by Manual count 3.0 % 25.0 - 40.0 L [facility] Monocytes/100 leukocytes in Blood by Automated count 1.8 % 3.0 - 8.0 L [facility] Eosinophils/100 leukocytes in Blood by Automated count 3.1 % 0.0 - 7.0 [facility] Basophils/100 leukocytes in Blood by Automated count 0.3 % 0.0 - 2.5 [facility] %IG 0.3 % 0.0 - 0.0 H [facility] %NRBC 0.0 % 0.0 - 0.0 [facility] Neutrophils [#/volume] in Blood by Automated count 11.35 10^3/uL 2. 00 - 6.90 H [facility] Lymphocytes [#/volume] in Blood by Automated count 0.37 10^3/uL 0.60 - 3.40 L [facility] Monocytes [#/volume] in Blood by Automated count 0.22 10^3/uL 0.00 - 0.90 [facility] Eosinophils [#/volume] in Blood by Automated count 0.38 10^3/uL 0.00 - 0.70 [facility] Basophils [#/volume] in Blood by Automated count 0.04 10^3/uL 0.00 - 0.20 [facility] #IG 0.04 10^3/uL 0.00 - 0.10 [facility] #NRBC 0.00 10^3/uL 0.00 - 0.00 [facility] MANUAL DIFF SEE BELOW [facility] ital Segmented neutrophils/100 leukocytes in Blood by Manual count 95 % 37 - 80 H [facility] %LYMPH 3 % 25 - 40 L [facility] %MONO 1 % 3 - 8 L [facility] %EOS 1 % 0 - 7 [facility] RBC MORPH SEE BELOW [facility] Anisocytosis [Presence] in Blood by Light microscopy 1+ SHAUNA L: NONE SEEN A [facility] HYPO 1+ NORMAL: NONE SEEN A [facility] { SICKLE CELL (NORMAL: NONE SEEN ) Platelet adequacy [Presence] in Blood by Light microscopy NORMAL NORMAL: NORMAL [facility] COMMENT: ID Date Data Source [id number] 07/31/2021 11:02:00 AM EDT [facility] Name Value Range Interpretation Code Description Data Maura rce(s) Supporting Document(s) BASIC METABOLIC PANEL [facility] BASIC METABOLIC PANEL Sodium [Moles/volume] in Serum or Plasma 138 mEq/L 134 - 153 [facility] Potassium [Moles/volume] in Serum or Plasma 4.7 mEq/L 3.6 - 5.0 [facility] Chloride [Moles/volume] in Serum or Plasma 101 mEq/L 98 - 107 [facility] Carbon dioxide, total [Moles/volume] in Serum or Plasma 27 MEQ/L 22 - 30 [facility] Glucose [Mass/volume] in Serum or Plasma 102 MG/DL 70 - 99 H [facility] BUN 21 MG/DL 7 - 21 [facility] Creatinine [Mass/volume] in Serum or Plasma 1.3 MG/DL 0.7 - 1.5 [facility] BUN/CREAT 16 8 - 27 [facility] Calcium [Mass/volume] in Serum or Plasma 9.1 MG/DL 8.4 - 10.2 [facility] Anion gap 3 in Serum or Plasma 10.0 mmol/L 8.0 - 16.0 [facility] AGE 56 yrs [facility] AFR AMER GFR 54 mL/min [facility] NON-AA GFR 45 mL/min [facility] willy Male GFR Inter prentation 20-49 [...] >32 mL/min Normal ID Date Data Source [id number] 07/31/2021 11:00:00 AM EDT [facility] Name Value Range Interpretation Code Description Data Maura rce(s) Supporting Document(s) Magnesium [Mass/volume] in Serum or Plasma 1.9 MG/DL 1.7 - 2.2 [facility] ID Date Data Source [id number] 07/31/2021 10:48:00 AM EDT [facility] Name Value Range Interpretation Code Description Data Maura rce(s) Supporting Document(s) TROPONIN T 0.02 NG/ML 0.00 - 0.10 [facility] sp[facility] TROPONIN T0.1 ng/ml Recommended as the c linical threshold value forTroponin T. ID Date Data Source [id number] 07/02/2021 07:33:00 [place] [address] RESPIRATORY CARE REPORT ==== ---------NAME------- NUMBER SEX AGE ADMIT DISC. XRAY# F/C CYNDY Daniels [id number] F 56 06/29/21 06/29/21 [id number] [facility] E/R DATE OF : 1965 M/R# [id number] #: [id number] TR-07 LOCATION: EMERGENCY DEPT EKG 23809 COMP LETE:06/30/21 00:28 [place] 20735 EKG 34481 COMPLETE:06/30/21 02:04 VMT 26557 PHYSICIAN: BRENDA Stoddard Name Value Range Interpretation Code Description Data Maura rce(s) Supporting Document(s) ID Date Data Source [id number] 06/29/2021 10:49:00 AM EDT [facility] 1 OrderSheet [facility] Emergency Department [address] [place] [address] Phone #: ext- [phone] 06/29/2021 10:46 Patient: [...] rce(s) Supporting Document(s) ID Date Data Source [id number] 06/29/2021 10:49:00 AM EDT [facility] 1 Medication Reconciliation Report [facility] Emergency Department [address] [place] [address] Phone #: ext- [phone] 06/29/2021 10:46 Patient: [...] Medication information:Not obtained. 2 Medication Reconciliation Report [facility] Emergency Department [address] [place] [address] Phone #: ext [phone] 06/29/2021 10:46 Patient: CHANTALE SOLOMON Sex: F : 1965 Age: 56yThe following Medications were given to the patient in the Emergency Department:None.The following Medications were prescribed to the patient:None. Name Value Range Interpretation Code Description Data Maura rce(s) Supporting Document(s) ID Date Data Source [id number] 06/29/2021 10:49:00 AM EDT [place] [address] Medication Administration Record [facility] Emergency Department [address] [place] [address] Phone #: ext [phone] 06/29/2021 10:46 Patient: CHANTALE SOLOMON A cct#: [id number] Sex: F : 1965 Age: 56yWeight: 77.1 kgHeight/Length: 60 inBMI: 33.2ALLERGIES: Penicillins, SeafoodDate/Time Medication Administered Medication Ordered Name Value Range Interpretation Code Description Data Maura rce(s) Supporting Document(s) ID Date Data Source [id number] 06/29/2021 10:49:00 AM EDT [place] [address] General Instructions [facility] Emergency Department [address] [place] [address] Phone #: ext [phone] 06/29/2021 10:46 Patient: CHANTALE SOLOMON Sex: F [...] patient.Follow-up with: Osmel Alvarez MD, Cardiology, , [address] [place] [address], [facility] Follow up in three days. Call for an appointment. Reason for referral: evaluation. 2 General Instructions [facility] Emergency Department [address] [place] [address] Phone #: ext- [phone] 06/29/2021 10:46 Patient: CHANTALE SOLOMON Sex: F : 1965 Age: 56y(Electronically signed by Rory Gomez 06/29/2021 15:34) Name Value Range Interpretation Code Description Data Maura rce(s) Supporting Document(s) ID Date Data Source [id number] 06/29/2021 10:49:00 AM EDT [facility] 1 Clinical Report - Nurses [facility] Emergency Department [address] [place] [address] Phon e #: ext- [phone] 06/29/2021 10:46 Patient: CHANTALE SOLOMON Sex: F [...] alpatations).Alert.This started today. Onset. 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 (0900).SEPSIS SCREEN: SEPSIS SCREEN NEGATIVE. No [...] Reason for 2 Clinical Report - Nurses [facility] Emergency Department [address] [place] [address] Phone #: ext- [phone] 06/29/2021 10:46 Patient: [...] heel spur.Septoplasty.Septoplasty.Tonsillectomy. 3 Clinical Report - Nurses [facility] Emergency Department [address] [place] [address] Phone #: ext- [phone] 06/29/2021 10:46 Patient: [...] patient. To treatment room. --10:51 06/29/21 Orin Pireson R.N. Allergy band on patient. --11:05 06/29/21 [...] Mendes RN. 4 Clinical Report - Nurses [facility] Emergency Department [address] [place] [address] Phone #: ext- [phone] 06/29/2021 10:46 Patient: CHANTALE SOLOMON Sex: F : 1965 Age: 56yNURSING PROGRESS NOTES10:45 06/29/2021 Site #1 started via IV in the right forearm with an 20g angiocath; one attempt. Blooddrawn: [employer] set and blood bank tube. Labeled in the presence of the patient and sent to the lab. [place] flushed with 10 mL saline. --11:03 06/29/21 Yandel Mendes RN Cardiac rhythm: atrial fibrillation; (1035). Oxygen administered by nasal cannula at 3 liters (1035). telemetry monitor, NIBP monitor and pulse oximeter placed on patient; satellite project site monitor- Lead II; monitor alarms on; monitor strip added to paper chart. EKG time: (10:35 06/29/2021). EKG was performed by a nurse and shown to the ED physician. A Fib. Checked patient name and birthdate. Blood samples drawn from the right forearm peripheral IV site by nurse per protocol ; labeled in presence of the patient and sent to lab: [employer] set. Initial blood discarded. (1045). Patient gowned. [...] air. --12:05 06/29/21 Yandel Mendes RN ( 3083 Dr Gomez in to reassess pt and [...] 0/10. --14:02 06/29/21 Yandel Mendes RN ( [address] Ruiz in to see pt). --14:09 06/29/21 Yandel Mendes RN. 5 Clinical Report - Nurses [facility] Emergency Department [address] [place] [address] Phone #: ext- [phone] 06/29/2021 10:46 Patient: CHANTALE SOLOMON Sex: F : 1965 Age: 56yDISPOSITION / DISCHARGE 14:43 06/29/21. Condition at departure: improved. No learning barriers present. Discharge instructions provided and reviewed with the patient. Reviewed medication(s) (no new med). Reviewed referral to a heel shaver. Patient verbalized understanding. Written instructions provided in Cymro. The patient was discharged by the physician. [...] rce(s) Supporting Document(s) ID Date Data Source [id number] 06/29/2021 10:49:00 AM EDT [facility] 1 Clinical Report - Physicians/Mid Levels [facility] Emergency Department [address] [place] [address] Phone #: ext- [phone] 06/29/2021 10:46 Patient: [...] spur. 2 Clinical Report - Physicians/Mid Levels [facility] Emergency Department [address] [place] [address] Phone #: ext- [phone] 06/29/2021 10:46 Patient: CHANTALE SOLOMON [facility]#: [id number] Sex: F : 1965 Age: 56y Right [...] inspection. 3 Clinical Report - Physicians/Mid Levels [facility] Emergency Department [address] [place] [address] Phone #: ext- [phone] 06/29/2021 10:46 Patient: [...] A (NORMAL: SHAUNA 4 Clinical Report - Physicians/[facility] Emergency Department [address] [place] [address] Phone #: ext- [phone] 06/29/2021 10:46 Patient: [...] Male GFR Interprentation 20-49 yrs >60 mL/min Cgvqjv18-25 yrs >56 mL/min Normal 60-69 yrs >49 mL/min Normal 70-79yrs>42 mL/min Normal 80 and above >35 mL/min Normal Female GFRInterpretation 20-39 yrs >60 mL/min Normal 40-49 yrs >58 mL/minNormal 50-59 yrs >51 mL/min Normal 60-69 yrs >45 mL/min Uvrfuq14-72 yrs >39 mL/min Normal 80 and above >32 mL/min NormalTroponin-T: (SARAH: 06/29/2021 10:55) ( MsgRcvd 06/29/2021 12:14) Final results Test Result Flag Units (Reference) TROPONIN T 0.03 NG/ML (0.00 - 0.10) TROPONIN T0.1 ng/ml Recommended as the clinical threshold value forTroponin T.Magnesium: (SARAH: 06/29/2021 10:55) ( NcgRcvd 06/29/2021 11:51) Final results Test Result Flag Units (Reference) MAGNESIUM 1.9 MG/DL (1.7 - 2.2)Chest Portable 1 View: (SARAH: 06/29/2021 10:59) ( [facility] 06/29/2021 12:56) Final resultsCHEST PORTABLEReason(s): CHFTRANSPORTATION: P IV? O2? Oxygen?(No) Room: ED 5 Clinical Report - Physicians/Mid Levels [facility] Emergency Department [address] [place] [address] Phone #: ext- [phone] 06/29/2021 10:46 -------- Patient: CHANTALE SOLOMON Sex: F : 1965 Age: 56y [place] [address] PHONE: [phone] FAX: [phone] Name .................. : JUANITO Daniels Acct Number.................. : [id number] ROOM. ................. : TR-07 MR Number ................... : [id number] Stay type ............. : E/R Discharge Date......... ... : Admit Date ......... : 06/29/21 Admit Phys .................... : BRENDA Stoddard Date of ....... : 1965 Family Phys ................... : SEQUEIRA Phone .................. : [phone] Age ................................ : 56 Film# .................. .:[id number] Sex ................................. : F Unsigned transcriptions are preliminary reports and do not represent a medical or legal document CHEST PORTABLE [id number] COMPLETE:06/29/21 10:59 Reason(s): CHF PORTABLE CHEST SINGLE [...] Transcribe Date: 06/29/21 12:11, Dictation Date: 2 [place] [address] 6 Clinical Report - Physicians/Mid Levels [facility] Emergency Department [address] [place] [address] Phone #: ext- [phone] 06/29/2021 10:46 Patient: CHANTALE SOLOMON Sex: F : 1965 Age: 56y PHONE: [phone] FAX: [phone] Name .................. : JUANITO Daniels Acct Number.................. : [id number] ROOM. ................. : TR-07 MR Number ................... : [id number] Stay type ............. : E/R Discharge Date......... ... : Admit Date ......... : 06/29/21 Admit Phys .... ................ : BRENDA Stoddard Date of ....... : 1965 Family Phys ................... : SEQUEIRA Phone .................. : [phone] Age ................................ : 56 Film# .................. .:[id number] Sex ................................. : F Unsigned transcriptions are preliminary reports and do not represent a medical or legal document CHEST PORTABLE [id number] COMPLETE:06/29/21 10:59 Reason(s): CHF Copy for: 010 [...] cancer. 7 Clinical Report - Physicians/Mid Levels [facility] Emergency Department [address] [place] [address] Phone #: ext- [phone] 06/29/2021 10:46 Patient: [...] Follow-up with: Osmel Alvarez MD, Cardiology, , [address] [place] [address], [address] Follow up in three days. Call for an appointment. Reason for referral: evaluation.(Electronically signed by Rory Gomez 06/29/2021 15:34) Name Value Range Interpretation Code Description Data Maura rce(s) Supporting Document(s) ID Date Data Source [id number] 06/29/2021 12:41:00 [place] [address] PHONE: [phone] FAX: [phone] Name .................. : JUANITO ROMAN Jeremiah Acct Number.................. : [id number] ROOM. ................. : TR-07 MR Number ................... : [id number] Stay type ............. : E/R Discharge Date......... ... : Admit Date ......... : 06/29/21 Admit Phys .................... : BRENDA Stoddard Date of ....... : 1965 Family Phys ................... : SEQUEIRA Phone .................. : [phone] Age ................................ : 56 Film# .................. .:[id number] Sex ................................. : F Unsigned transcriptions are preliminary reports and do not represent a medical or legal document CHEST PORTABLE [id number] COMPLETE:06/29/21 10:59 Reason(s): CHF PORTABLE CHEST SINGLE [...] MD , 06/29/21 12:41, JWWalter Transcribe Initials: RYEES , Transcribe Date: 06/29/21 12:11, Dictation Date: Page 1 of 2 [facility] [address] [place] [address] PHONE: [phone] FAX: [phone] Name .................. : JUANITO Daniels Acct Number.................. : [id number] ROOM. ................. : TR-07 MR Number ................... : [id number] Stay type ............. : E/R Discharge Date......... ... : Admit Date ......... : 06/29/21 Admit Phys .................... : BRENDA Stoddard Date of ....... : 1965 Family Phys ................... : SEQUEIRA Phone .................. : [phone] Age ................................ : 56 Film# .................. .:[id number] Sex ................................. : F Unsigned transcriptions are preliminary reports and do not represent a medical or legal document CHEST PORTABLE [id number] COMPLETE:06/29/21 10:59 Reason(s): CHF Copy for: 010 EMERGENCY SRV Copy for: EMERGENCY DEPT via modem Copy for: 710 MED REC Page 2 of 2 Name Value Range Interpretation Code Description Data Maura rce(s) Supporting Document(s) ID Date Data Source [id number] 06/29/2021 12:13:00 PM EDT [facility] Name Value Range Interpretation Code Description Data Maura rce(s) Supporting Document(s) TROPONIN T 0.03 NG/ML 0.00 - 0.10 [facility] TROPONIN T0.1 ng/ml Recommended as the c linical threshold value forTroponin T. ID Date Data Source [id number] 06/29/2021 11:51:00 AM EDT [facility] Name Value Range Interpretation Code Description Data Maura e(s) Supporting Document(s) Magnesium [Mass/volume] in Serum or Plasma 1.9 MG/DL 1.7 - 2.2 [facility] ID Date Data Source [id number] 06/29/2021 11:51:00 AM EDT [facility] Name Value Range Interpretation Code Description Data [facility] Supporting Document(s) COMPREHENSIVE METABOLIC PANEL [facility] COMPREHENSIVE METABOLIC PANEL Sodium [Moles/volume] in Serum or Plasma 136 mEq/L 134 - 153 [facility] Potassium [Moles/volume] in Serum or Plasma 3.7 mEq/L 3.6 - 5.0 [facility] Chloride [Moles/volume] in Serum or Plasma 99 mEq/L 98 - 107 [facility] Carbon dioxide, total [Moles/volume] in Serum or Plasma 26 MEQ/L 22 - 30 [facility] Glucose [Mass/volume] in Serum or Plasma 163 MG/DL 70 - 99 H [facility] BUN 16 MG/DL 7 - 21 [facility] Creatinine [Mass/volume] in Serum or Plasma 1.4 MG/DL 0.7 - 1.5 [facility] BUN/CREAT 11 8 - 27 [facility] Protein [Mass/volume] in Serum or Plasma 5.7 G/DL 6.3 - 8.2 L [facility] Albumin [Mass/volume] in Serum or Plasma 3.5 G/DL 3.9 - 5.0 L [facility] Globulin [Mass/volume] in Serum by calculation 2.2 GM/DL 2.4 - 3.2 L [facility] A/G RATIO 1.6 0.8 - 2.0 [facility] Calcium [Mass/volume] in Serum or Plasma 8.5 MG/DL 8.4 - 10.2 [facility] Bilirubin.total [Mass/volume] in Serum or Plasma <0.7 MG/DL 0.2 - 1.3 [facility] Alkaline phosphatase [Enzymatic activity/volume] in Serum or Plasma 104 U/L 38 - 126 [facility] Aspartate aminotransferase [Enzymatic activity/volume] in Serum or Plasma 26 U/L 5 - 40 [facility] Alanine aminotransferase [Enzymatic activity/volume] in Seru m or Plasma 17 U/L 7 - 56 [facility] Anion gap 3 in Serum or Plasma 11.0 mmol/L 8.0 - 16.0 [facility] AGE 56 yrs [facility] NON-AA GFR 41 mL[facility]min [facility] AMER GFR 50 mL/min [facility] Male GFR In terprentation 20-49 [...] >32 mL/min Normal ID Date Data Source [id number] 06/29/2021 11:49:00 AM T [facility] Name Value Range Interpretation Code Description Data Maura rce(s) Supporting Document(s) BNP 1636 PG/ML 0 - 125 H [facility] ID Date Data Source [id number] 06/29/2021 11:30:00 AM [facility] Name Value Range Interpretation Code Description Data Maura rce(s) Supporting Document(s) CBC W/AUTOMATED DIFF [facility] COMPLETE BLOOD COUNT Leukocytes [#/volume] in Blood by Automated count 5.1 10^3/uL 4.2 - 1 1.0 [facility] Erythrocytes [#/volume] in Blood by Automated count 2.37 10^6/uL 4. 20 - 5.40 L [facility] Hemoglobin [Mass/volume] in Blood 8.3 g/dL 12.0 - 16.0 L [facility] Hematocrit [Volume Fraction] of Blood by Automated count 25.1 % 3 7.0 - 47.0 L [facility] Erythrocyte mean corpuscular volume [Entitic volume] b y Automated count 105.9 fL 81.0 - 101 H [facility] Erythrocyte mean corpuscular hemoglobin [Entitic mass] by Automated count 35.0 pg 27.0 - 34.0 H [facility] Erythrocyte mean corpuscular hemoglobin concentration [Mass/volume] by Automated count 33.1 g/dL 31.0 - 36.0 [facility] Erythrocyte distribution width [Ratio] by Automated count 15.7 % 11.5 - 14.5 H [facility] Platelets [#/volume] in Blood by Automated count 119 10^3/uL 150 - 45 0 L [facility] Platelet mean volume [Entitic volume] in Blood by Automated count 9.8 fL 7.4 - 10.4 [facility] Neutrophils/100 leukocytes in Blood by Automated count 76.6 % 37. 0 - 80.0 [facility] Lymphocytes/100 leukocytes in Blood by Manual count 6.6 % 25.0 - 40.0 L [facility] Monocytes/100 leukocytes in Blood by Automated count 12.1 % 3.0 - 8.0 H [facility] Eosinophils/100 leukocytes in Blood by Automated count 3.3 % 0.0 - 7.0 [facility] Basophils/100 leukocytes in Blood by Automated count 0.4 % 0.0 - 2.5 [facility] %IG 1.0 % 0.0 - 0.0 [facility] % 0.0 - 0.0 [facility] Neutrophils [#/volume] in Blood by Automated count 3.92 10^3/uL 2.00 - 6.90 [facility] Lymphocytes [#/volume] in Blood by Automated count 0.34 10^3/uL 0.60 - 3.40 L [facility] Monocytes [#/volume] in Blood by Automated count 0.62 10^3/uL 0.00 - 0.90 [facility] Eosinophils [#/volume] in Blood by Automated count 0.17 10^3/uL 0.00 - 0.70 [facility] Basophils [#/volume] in Blood by Automated count 0.02 10^3/uL 0.00 - 0.20 [facility] #IG 0.05 10^3/uL 0.00 - 0.10 [facility] #NRBC 0.00 10^3/uL 0.00 - 0.00 [facility] MANUAL DIFF SEE BELOW [facility] ital Segmented neutrophils/100 leukocytes in Blood by Manual count 83 % 37 - 80 H [facility] %LYMPH 10 % 25 - 40 L [facility] %MONO 5 % 3 - 8 [facility] %EOS 2 % 0 - 7 [facility] RBC MORPH SEE BELOW [facility] Anisocytosis [Presence] in Blood by Light microscopy 1+ SHAUNA L: NONE SEEN A [facility] Macrocytes [Presence] in Blood by Light microscopy 1+ NORMAL: NONE SEEN A [facility] Poikilocytosis [Presence] in Blood by Light microscopy 1+ NOR MAL: NONE SEEN A [facility] { SICKLE CELL (NORMAL: NONE SEEN ) Ovalocytes [Presence] in Blood by Light microscopy 1+ NORMAL: NONE SEEN A [facility] Neutrophils.hypersegmented [Presence] in Blood by Light micr oscopy 2+ NORMAL: NONE SEEN A [facility] Platelet adequacy [Presence] in Blood by Light microscopy DE CREASED NORMAL: NORMAL A [facility] COMMENT: ID Date Data Source [id number] 06/28/2021 12:00:00 AM EDT [facility] Name Value Range Interpretation Code Description Data Maura rce(s) Supporting Document(s) SARS-CoV2 Rapid Antigen Negative [facility] This lab was reported by [facility]. ID Date Data Source [id number] 11/10/2020 12:00:00 AM EST [facility] Name Value Range Interpretation Code Description Data Maura rce(s) Supporting Document(s) SARS coronavirus 2 Ag Negative [facility] This lab was ordered by [facility] and reported by [facility]. ID Date Data Source [id number] 06/20/2021 08:00:00 AM EDT [facility] ([facility], ) Name Value Range Interpretation Code Description Data Maura rce(s) Supporting Document(s) Gram Stain Laboratory test result Normal (applies to non-n umeric results) [facility] ([facility], ) FEW WBCS NO ORGANISMS SEEN Bal Culture Laboratory test result Normal (applies to non- numeric results) [facility] ([facility], ) FULL REPORT IN LAB NOTES ([facility] and [facility] ). NO GROWTH AEROBICALLY ID Date Data Source [id number] 06/15/2021 01:30:00 PM EDT [facility] Name Value Range Interpretation Code Description Data Maura rce(s) Supporting Document(s) SARS-CoV-2 (COVID-19) RNA [Presence] in Respiratory specimen by DAR with probe detection Not Detected [facility] This lab was ordered by [facility] and reported by [facility]. ID Date Data Source [id number] 06/11/2021 10:20:00 AM EDT [facility] Name Value Range Interpretation Code Description Data Maura rce(s) Supporting Document(s) Thyroxine (T4) free index in Serum or Plasma by calculation 1.16 NG/DL 0.93 - 1.70 [facility] ID Date Data Source [id number] 06/11/2021 10:20:00 AM EDT [facility] Name Value Range Interpretation Code Description Data Maura rce(s) Supporting Document(s) Thyrotropin [Units/volume] in Serum or Plasma by Detec tion limit <= 0.05 mIU/L 2.07 uIU/mL 0.47 - 5.01 [facility] ID Date Data Source [id number] 06/11/2021 10:05:00 AM EDT [facility] Name Value Range Interpretation Code Description Data Maura rce(s) Supporting Document(s) BASIC METABOLIC PANEL [facility] BASIC METABOLIC PANEL Sodium [Moles/volume] in Serum or Plasma 139 mEq/L 134 - 153 [facility] Potassium [Moles/volume] in Serum or Plasma 4.3 mEq/L 3.6 - 5.0 [facility] Chloride [Moles/volume] in Serum or Plasma 100 mEq/L 98 - 107 [facility] Carbon dioxide, total [Moles/volume] in Serum or Plasma 28 MEQ/L 22 - 30 [facility] Glucose [Mass/volume] in Serum or Plasma 88 MG/DL 70 - 99 [facility] BUN 12 MG/DL 7 - 21 [facility] Creatinine [Mass/volume] in Serum or Plasma 1.4 MG/DL 0.7 - 1.5 [facility] BUN/CREAT 9 8 - 27 [facility] Calcium [Mass/volume] in Serum or Plasma 8.5 MG/DL 8.4 - 10.2 [facility] Anion gap 3 in Serum or Plasma 11.0 mmol/L 8.0 - 16.0 [facility] AGE 56 yrs [facility] AFR AMER GFR 50 mL/min [facility] NON-AA GFR 41 mL/min [facility] G[facility] Inter prentation 20-49 yrs [...] >32 mL/min Normal ID Date Data Source [id number] 06/11/2021 09:51:00 AM EDT [facility] Name Value Range Interpretation Code Description Data Maura rce(s) Supporting Document(s) CBC W/AUTOMATED DIFF [facility] COMPLETE BLOOD COUNT Leukocytes [#/volume] in Blood by Automated count 5.0 10^3/uL 4.2 - 1 1.0 [facility] Erythrocytes [#/volume] in Blood by Automated count 2.53 10^6/uL 4. 20 - 5.40 L [facility] Hemoglobin [Mass/volume] in Blood 8.7 g/dL 12.0 - 16.0 L [facility] Hematocrit [Volume Fraction] of Blood by Automated count 26.3 % 3 7.0 - 47.0 L [facility] Erythrocyte mean corpuscular volume [Entitic volume] b y Automated count 104.0 fL 81.0 - 101 H [facility] Erythrocyte mean corpuscular hemoglobin [Entitic mass] by Automated count 34.4 pg 27.0 - 34.0 H [facility] Erythrocyte mean corpuscular hemoglobin concentration [Mass/volume] by Automated count 33.1 g/dL 31.0 - 36.0 [facility] Erythrocyte distribution width [Ratio] by Automated count 16.0 % 11.5 - 14.5 H [facility] Platelets [#/volume] in Blood by Automated count 215 10^3/uL 150 - 45 0 [facility] Platelet mean volume [Entitic volume] in Blood by Automated count 9.3 fL 7.4 - 10.4 [facility] Neutrophils/100 leukocytes in Blood by Automated count 54.7 % 37. 0 - 80.0 [facility] Lymphocytes/100 leukocytes in Blood by Manual count 12.3 % 25.0 - 40.0 L [facility] Monocytes/100 leukocytes in Blood by Automated count 28.8 % 3.0 - 8.0 H [facility] Eosinophils/100 leukocytes in Blood by Automated count 2.8 % 0.0 - 7.0 [facility] Basophils/100 leukocytes in Blood by Automated count 0.4 % 0.0 - 2.5 [facility] %IG 1.0 % 0.0 - 0.0 [facility] %NRBC 0.0 % 0.0 - 0.0 [facility] Neutrophils [#/volume] in Blood by Automated count 2.75 10^3/uL 2.00 - 6.90 [facility] Lymphocytes [#/volume] in Blood by Automated count 0.62 10^3/uL 0.60 - 3.40 [facility] Monocytes [#/volume] in Blood by Automated count 1.45 10^3/uL 0.00 - 0.90 H [facility] Eosinophils [#/volume] in Blood by Automated count 0.14 10^3/uL 0.00 - 0.70 [facility] Basophils [#/volume] in Blood by Automated count 0.02 10^3/uL 0.00 - 0.20 [facility] #IG 0.05 10^3/uL 0.00 - 0.10 [facility] #NRBC 0.00 10^3/uL 0.00 - 0.00 [facility] MANUAL DIFF SEE BELOW [facility] ital Segmented neutrophils/100 leukocytes in Blood by Manual count 58 % 37 - 80 [facility] %LYMPH 10 % 25 - 40 L [facility] %MONO 28 % 3 - 8 H [facility] %EOS 3 % 0 - 7 [facility] Metamyelocytes/100 leukocytes in Blood by Manual count 1 % [facility] RBC MORPH SEE BELOW [facility] Anisocytosis [Presence] in Blood by Light microscopy 2+ SHAUNA L: NONE SEEN A [facility] Macrocytes [Presence] in Blood by Light microscopy 2+ NORMAL: NONE SEEN A [facility] HYPO 2+ NORMAL: NONE SEEN A [facility] Polychromasia [Presence] in Blood by Light microscopy 1+ NORM AL: NONE SEEN A [facility] { SICKLE CELL (NORMAL: NONE SEEN ) Neutrophils.hypersegmented [Presence] in Blood by Light micr oscopy 1+ NORMAL: NONE SEEN A [facility] Platelet adequacy [Presence] in Blood by Light microscopy NORMAL NORMAL: NORMAL [facility] COMMENT: ID Date Data Source [id number] 06/05/2021 08:20:00 [place] [address] PHONE: [phone] FAX: [phone] Name .................. : JUANITO Daniels Acct Number.................. : [id number] ROOM. ................. : Number ................... : [id number] Stay type ............. : O/P Discharge Date......... ... : 06/04/21 Admit Date ......... : 06/04/21 Admit Phys .................... : KIM MENDEZ Date of ....... : 1965 Family Phys ................... : REGINE GAIL Phone .................. : [phone] Age ................................ : 56 Film# .................. .:[id number] Sex ................................. : F Unsigned transcriptions are preliminary reports and do not represent a medical or legal document DOPPLER UNILATERAL VENOUS [id number] COMPLETE:06/04/21 15:18 GSP [id number] Reason for Exam: R/O BLOOD CLOT ULTRASOUND [...] Dictation Date: Copy for: KIM MENDEZZA via [employer] Copy for: Michael MED REC Page 1 of 1 Name Value Range Interpretation Code Description Data Maura rce(s) Supporting Document(s) ID Date Data Source [id number] 05/23/2021 08:00:00 AM EDT [facility] ([facility], ) Name Value Range Interpretation Code Description Data Maura rce(s) Supporting Document(s) Gram Stain Laboratory test result Normal (applies to non-n umeric results) [facility] ([facility], ) QUALITY: GOOD MODERATE EPITHELIAL CELLS MODERATE WBCS MANY GRAM POSITIVE COCCI IN PAIRS, CHAINS AND CLUSTERS FEW YEAST LIKE ORGANISM MANY GRAM POSITIVE RODS FEW GRAM NEGATIVE RODS Sputum Culture Laboratory test result Normal (applies to non-numeric results) [facility] ([facility], ) FULL REPORT [facility] NOTES ([facility] NORMAL JEROME PRESENT ID Date Data Source [id number] 05/01/2021 08:44:00 PM EDT [facility] 1 OrderSheet [facility] Emergency Department [address] [place] [address] Phone #: ext- [phone] 05/01/2021 20:41 Patient: [...] Laura R.N. ;DIAGNOSTIC STUDY ORDERS 2 OrderSheet [facility] Emergency Department [address] [place] [address] Phone #: ext- [phone] 05/01/2021 20:41 Patient: CHANTALE SOLOMON Sex: F [...] gm (Verify Gloria Schneider R.N.Strength in ;[place], [place] GHALERTMEDICATION)GENERAL ORDERSOrder Description Priority Entered Acknowledged InitialedAccucheck 20:50 05/01/2021 20:58 Wyatt Chanel Victoria Laura R.N. ;Grinder Set Up Operator Universal 20:50 05/01/2021 20:51 Yanique(continuous) Gloria Schneider R.N. ;EKG 20:50 05/01/2021 20:51 Wyatt Chanel Victoria Laura R.N. 3 OrderSheet [facility] Emergency Department [address] [place] [address] Phone #: ext- [phone] 05/01/2021 20:41 Patient: [...] rce(s) Supporting Document(s) ID Date Data Source [id number] 05/01/2021 08:44:00 PM EDT [facility] 1 Medication Reconciliation Report [facility] Emergency Department [address] [place] [address] Phone #: ext- [phone] 05/01/2021 20:41 Patient: [...] the Emergency Department: 2 Medication Reconciliation Report [facility] Emergency Department [address] [place] [address] Phone #: ext- [phone] 05/01/2021 20:41 Patient: [...] rce(s) Supporting Document(s) ID Date Data Source [id number] 05/01/2021 08:44:00 PM EDT [facility] 1 Medication Administration Record [facility] Emergency Department [address] [place] [address] Phone #: ext- [phone] 05/01/2021 20:41 Patient: CHANTALE SOLOMON Sex: F : 1965 Age: 55yWeight: 79.3 kgHeight/Length: 60 inBMI: 34.1ALLERGIES: Penicillins, Seafood Date/Time Medication Administered Medication OrderedStart SODIUM CHLORIDE [IV] NS IV 1000 mL Bolus: : Bolus [id number] 05/01/2021 Dose: IV Fluids mL (X1)Jacquelyn Chanel [...] rce(s) Supporting Document(s) ID Date Data Source [id number] 05/01/2021 08:44:00 PM EDT [facility] 1 General Instructions [facility] Emergency Department [address] [place] [address] Phone #: ext- [phone] 05/01/2021 20:41 Patient: CHANTALE SOLOMON Sex: F [...] paper. ADDITIONAL INFORMATIONAbout Arrhythmias 2 General Instructions [facility] Emergency Department [address] [place] [address] Phone #: ext- [phone] 05/01/2021 20:41 Patient: [...] Chest pain or pressure 3 General Instructions [facility] Emergency Department [address] [place] [address] Phone #: ext- [phone] 05/01/2021 20:41 Patient: [...] Obesity Congenital heart disease 4 General Instructions [facility] Emergency Department [address] [place] [address] Phone #: ext- [phone] 05/01/2021 20:41 Patient: [...] help. Tell your doctor about any prescription, shoe-hyx-rdkhfoc, or herbal medicines you take. These may be affecting your heart rhythm.Follow-up careFollow up with your healthcare provider, or as advised. If a Holter monitor has been recommended,contact the heel shaver you have been referred to as soon as you can chart picker the device. Otheroutpatient tests may also [...] faint, or d amy 5 General Instructions [facility] Emergency Department [address] [place] [address] Phone #: ext- [phone] 05/01/2021 20:41 ------ Patient: CHANTALE SOLOMON Sex: [...] help while trying to find them. [employer] [address] [place] [address]. All rights reserved. This information is not [...] first week of treatment. 6 General Instructions [facility] Emergency Department [address] [place] [address] Phone #: ext- [phone] 05/01/2021 20:41 Patient: [...] smoke in your home. 7 General Instructions [facility] Emergency Department [address] [place] [address] Phone #: ext- [phone] 05/01/2021 20:41 Patient: CHANTALE SOLOMON Sex: F : 1965 Age: 55y Prevent lung infections. Ask your healthcare provider about the flu and pneumonia vaccines. Take steps to prevent colds and other lung infections. Practice correct handwashing. Wash your hands often with soap and water. Use hand building contractor when you can't wash your hands. Stay [...] about whichpneumococcal vaccine is best for you.Call [phone] [phone] any of these occur: 8 General Instructions [facility] Emergency Department [address] [place] [address] Phone #: ext- [phone] 05/01/2021 20:41 Patient: CHANTALE SOLOMON Sex: Shaye [...] Symptoms that get worse or not improving [phone] [employer] [address] [place] [address]. All rights reserved. This information is not intendedas a substitute for professional medical care. Always follow your healthcare professional's instructions. You have been given the following additional information: About Arrhythmias Pneumonia (Adult) 9 General Instructions [facility] Emergency Department [address] [place] [address] Phone #: ext- [phone] 05/01/2021 20:41 Patient: CHANTALE SOLOMON Sex: F : 1965 Age: 55y(Electronically signed by Gloria Schneider 05/03/2021 07:05) Name Value Range Interpretation Code Description Data Maura rce(s) Supporting Document(s) ID Date Data Source [id number] 05/01/2021 08:44:00 PM EDT [facility] 1 Clinical Report - Nurses [facility] Emergency Department [address] [place] [address] Phone #: ext- [phone] 05/01/2021 20:41 Patient: CHANTALE SOLOMON Sex: F : 1965 Age: 55yTRIAGEArrived by private vehicle. Historian: patient. Accompanied by family.Acuity: LEVEL 3.Chief Complaint: (Chest pressure).Alert. No acute distress.This started just prior to arrival. ( Patient states about 20 minutes ago she started feeling chest pressuresimilar to when she goes into a[facility]. States she just had an appointment with yesterday and medswere not changed.). 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 SEPSIS SCREEN NEGATIVE. [...] Lynette Harris. 2 Clinical Report - Nurses [facility] Emergency Department [address] [place] [address] Phone #: ext- [phone] 05/01/2021 20:41 Patient: [...] carrierof CRE. 3 Clinical Report - Nurses [facility] Emergency Department [address] [place] [address] Phone #: ext- [phone] 05/01/2021 20:41 Patient: CHANTALE SOLOMON Sex: F [...] Lynette Harris 4 Clinical Report - Nurses [facility] Emergency Department [address] [place] [address] Phone #: ext- [phone] 05/01/2021 20:41 Patient: [...] amount infused: 5 Clinical Report - Nurses [facility] Emergency Department [address] [place] [address] Phone #: ext- [phone] 05/01/2021 20:41 Patient: [...] Patient verbalized understanding. Written instructions provided in Cymro. The patient was discharged by the physician. She was discharged home and accompanied by spouse. She left ambulatory and via private vehicle. Spouse driving. --01:45 05/02/21 Jacquelyn Chanel R.N.Locked/Released at 05/02/2021 01:45 by Jacquelyn Chanel R.N. Name Value Range Interpretation Code Description Data Maura rce(s) Supporting Document(s) ID Date Data Source [id number] 05/01/2021 08:44:00 PM EDT [facility] 1 Clinical Report - Physicians/Mid Levels [facility] Emergency Department [address] [place] [address] Phone #: ext- [phone] 05/01/2021 20:41 [id number] Sex: F : 1965 Age: 55y Time [...] Palpitations. 2 Clinical Report - Physicians/Mid Levels [facility] Emergency Department [address] [place] [address] Phone #: ext- [phone] 05/01/2021 20:41 Patient: [...] normal. 3 Clinical Report - Physicians/Mid Levels [facility] Emergency Department [address] [place] [address] Phone #: ext- [phone] 05/01/2021 20:41 [id number] Sex: F : 1965 Age: 55y Appearance: [...] CTA CHEST NON-CORONARY W CON INC PP [address] [place] [address] ---------NAME--------- NUMBER SEX AGE ADMIT DISC. XRAY# F/C TYPE JUANITO Daniels [id number] F 55 05/01/21 [id number] BBF E/R DATE OF : 1965 M/R# [id number] PH#: [phone] TR-02 LOCATION: EMERGENCY DEPT TRANSCRIBED: 05/02/21 1:[address] CTA CHEST NON-CORONARY W [id number] COMPLETED:05/02/21 17 DLA [id number] Reason(s): chest oain palpitation elevated d dimer -- PHYSICIAN: WYATT -- -- R A D I O L O G Y R E P O R T -- PATIENT HISTORY: ACTUAL DOSE 947.6 mGy*cm chest pain palpitations elevated d dimer isovue 370 75cc [id number] March 2023 was given Patient hx menopause. Verification of 2 patient identifiers performed. 4 Clinical Report - Physicians/Mid Levels [facility] Emergency Department [address] [place] [address] Phone #: ext- [phone] 05/01/2021 20:41 Patient: CHANTALE SOLOMON Sex: F : 1965 Age: 55yTime Out performed. type and amount of contrast used, correct body part and sideall verified prior to examination. Exam has been sent to [facility] - If further informationis needed, the number is . Report will be faxed to ED and/orXray. / O-MAR, SOFT TISSUE, O-MAR. Compare with non-O-MAR images (DICOM Hx)EXAM: CTA Chest with Intravenous Contrast for PE evaluation--CLINICAL HISTORY:ACTUAL DOSE 947.6 mGy*cm chest pain palpitations elevated ddimer isovue 370 75cc [id number] March 2023 was given Patient hx menopause.Verification of 2 patient identifiers performed. Time Out performed. type andamount of contrast used, correct body part and side all verified prior toexamination. Exam has been sent to [facility] - If furtherinformation is needed, the [...] low as reasonably achievable.--CONTRAST:With; isovue 370 75cc [id number] March 2023 was administered without-- incident.--COMPARISON: CT [...] techniques.-- 5 Clinical Report - Physicians/Mid Levels [facility] Emergency Department [address] [place] [address] Phone #: ext- [phone] 05/01/2021 20:41 Patient: [...] 5.0) 6 Clinical Report - Physicians/Mid Levels [facility] Emergency Department [address] [place] [address] Phone #: ext- [phone] 05/01/2021 20:41 Patient: [...] Male GFR Interprentation 20-49 yrs >60 mL/min Pgvkyx03-11 yrs >56 mL/min Normal 60-69 yrs >49 mL/min Normal 70-79yrs>42 mL/min Normal 80 and above >35 mL/min Normal Female GFRInterpretation 20-39 yrs > 60 mL/min Normal 40-49 yrs >58 mL/minNormal 50-59 yrs >51 mL/min Normal 60-69 yrs >45 mL/min Cccule40-73 yrs >39 mL/min Normal 80 and above >32 mL/min NormalMagnesium: (SARAH: 05/01/2021 21:30) ( [facility] 05/01/2021 22:11) Final results Test Result Flag Units (Reference) MAGNESIUM 1.6 L MG/DL (1.7 - 2.2)Troponin-T: (SARAH: 05/01/2021 20:56) ( [facility] [place] [place]/01/[place] 21:29) Final results Test Result Flag Units (Reference) TROPONIN T 0.02 NG/ML (0.00 - 0.10) TROPONIN T0.1 ng/ml Recommended as the clinical threshold value forTroponin T.TSH: (SARAH: 05/01/2021 21:30) ( [facility] 05/01/2021 22:09) Final results Test Result Flag Units (Reference) TSH 1.79 uIU/mL (0.47 - 5.01)Urinalysis: (SARAH: 23:10) ( [facility] 05/01/2021 23:53) Final results Test Result [...] Not IndicateDrug Screen-Urine: (SARAH: 05/01/2021 20:50) ( [facility] 05/01/2021 21:04) CanceledD-Dimer: (SARAH: 05/01/2021 21:30) ( [facility] 05/01/2021 21:56) Final results 7 Clinical Report - Physicians/Mid Levels [facility] Emergency Department [address] [place] [address] Phone #: ext- [phone] 05/01/2021 20:41 Patient: CHANTALE SOLOMON Sex: F : 1965 Age: 55y Test Result Flag Units (Reference) D-DIMER QUANT 1.21 H ug/mL (0.27 - 0.50)Chest Portable 1 View: (SARAH: 05/01/2021 20:50) ( MsgRcvd 05/02/2021 00:40) In ProgressCHEST PORTABLEReason(s): PalpitationTRANSPORTATION: P IV? O2? Oxygen?(No) Room: [place] [address] PHONE: [phone] FAX: [phone] Name .................. : JUANITO Daniels Acct Number.................. : [id number] ROOM. ................. : TR-02 MR Number ................... : [id number] Stay type ............. : E/R Discharge Date......... ... : Admit Date ......... : 05/01/21 Admit Phys .................... : WYATT Date of ....... : 1965 Family Phys ................... : SEQUEIRA Phone .................. : [phone] Age ................................ : 55 Film# .................. .:[id number] Sex ................................. : F Unsigned transcriptions are preliminary reports and do not represent a medical or legal document CHEST PORTABLE 43735 COMPLETE:05/01/21 21:04 DLA 86494 Reason(s): Palpitation PORTABLE CHEST X-RAY: INDICATION: Palpitations. [...] 1 8 Clinical Report - Physicians/Mid Levels [facility] Emergency Department [address] [place] [address] Phone #: ext- [phone] 05/01/2021 20:41 Patient: CHANTALE SOLOMON Sex: F [...] daily. 9 Clinical Report - Physicians/Mid Levels [facility] Emergency Department [address] [place] [address] Phone #: ext- [phone] 05/01/2021 20:41 Patient: CHANTALE SOLOMON Sex: F [...] rce(s) Supporting Document(s) ID Date Data Source [id number] 05/01/2021 08:44:00 PM EDT [facility] for CHANTALE SOLOMON VisitID: [id number] Date: 14:07FSG ordered but not performed. please cancel order. blood sugar on chemistry was 109(Electronically signed by Gloria Schneider - 05/20/2021 14:07) Name Value Range Interpretation Code Description Data Maura rce(s) Supporting Document(s) ID Date Data Source [id number] 05/13/2021 09:14:00 [place] [address] DISCHARGE SUMMARYNAME: JUANITO Daniels ROOM#: [id number] OF : 1965 MR#: [id number] PHYS: Osmel Alvarez MD, PC DATE: 04/17/21 [...] inhalation daily2. Diltiazem 180 p.o. daily [address] [place] [address] DISCHARGE SUMMARYNAME: JUANITO Daniels ROOM#: [id number] OF : 1965 MR#: [id number] PHYS: Osmel Alvarez MD, PC DATE: 04/17/21 [...] was discharged in stable condition.DD: Jair Crowder, [employer] 05/13/21 20:16DT: DMAutumn 05/13/21 20:39DS: Jair Crowdre, [facility] 05/18/21 11:18 2 Name Value Range Interpretation Code Description Data Maura rce(s) Supporting Document(s) ID Date Data Source [id number] 05/11/2021 03:07:00 [place] [address] PHONE: [phone] FAX: [phone] Name .................. : JUANITO Daniels Acct Number.................. : [id number] ROOM. ................. : MR Number ................... : [id number] Stay type ............. : O/P Discharge Date......... ... : 05/10/21 Admit Date ....... .. : 05/10/21 Admit Phys .................... : MILVIA JOYCE Date of ....... : 1965 Family Phys ................... : SEQUEIRA Phone .................. : [phone] Age ................................ : 56 Film# .................. .:[id number] Sex ................................. : F Unsigned transcriptions are preliminary reports and do not represent a medical or legal document PELVIC 92223 COMPLETE:05/10/21 11:12 [facility] [address]267 Reason for Exam: PELVIC PAIN PELVIC SONOGRAM, [...] MD , 05/11/21 15:07, KGG Transcribe Initials: [facility], Transcribe Date: 05/10/21 12:33, Dictation Date: Page 1 of 2 [facility] [address] [place] [address] PHONE: [phone] FAX: [phone] Name .................. : JUANITO Daniels Acct Number.................. : [id number] ROOM. ................. : MR Number ................... : [id number] Stay type ............. : O/P Discharge Date......... ... : 05/10/21 Admit Date ......... : 05/10/21 Admit Phys .................... : MILVIA JOYCE Date of ....... : 1965 Family Phys ................... : SEQUEIRA Phone .................. : [phone] Age ................................ : 56 Film# .................. .:[id number] Sex ................................. : F Unsigned transcriptions are preliminary reports and do not represent a medical or legal document PELVIC 15996 COMPLETE:05/10/21 11:12 [facility] [address] Reason for Exam: PELVIC PAIN Copy for: MILVIA PIZANO via fax Copy for: [address] [place] [address] REC Page 2 of 2 Name Value Range Interpretation Code Description Data Maura rce(s) Supporting Document(s) ID Date Data Source [id number] 05/11/2021 03:06:00 PM EDT [facility] [address] [place] [address] PHONE: [phone] FAX: [phone] Name .................. : JUANITO Daniels Acct Number.................. : [id number] ROOM. ................. : MR Number ................... : [id number] Stay type ............. : O/P Discharge Date......... ... : 05/10/21 Admit Date ....... .. : 05/10/21 Admit Phys .................... : MILVIA JOYCE Date of ....... : 1965 Family Phys ................... : REGINE GAIL Phone .................. : [phone] Age ................................ : 56 Film# .................. .:[id number] Sex ................................. : F Unsigned transcriptions are preliminary reports and do not represent a medical or legal document HIP BILAT W PELVIS 2 VIEWS 99831 COMPLETE:05/10/21 09:50 [facility] [place] [address] Reason for Exam: SYMPLRYNIC PUBIS PAIN BILATERAL [...] for: MILVIA PIZANO via fax Copy for: [address] [place] [address] REC Page 1 of 1 Name Value Range Interpretation Code Description Data Maura rce(s) Supporting Document(s) ID Date Data Source [id number] 05/02/2021 08:11:00 [place] [address] RESPIRATORY CARE REPORT ==== ---------NAME------- NUMBER SEX AGE ADMIT DISC. XRAY# F/C CYNDY CHNATALE E [id number] F 55 05/01/21 05/02/21 [id number] BBF E/R DATE OF : 1965 M/R# [id number] PH#: [phone] TR- LOCATION: EMERGENCY DEPT EKG 25449 COMPLE TE:05/02/21 03:55 AJP 97718 EKG 92534 COMPLETE:05/02/21 03:55 AJP 92914 PHYSICIAN: WYATT Name Value Range Interpretation Code Description Data Maura rce(s) Supporting Document(s) ID Date Data Source [id number] 05/02/2021 01:21:00 [place] [address] PHONE: [phone] FAX: [phone] Name .................. : SOLOMON CHANTALE E Acct Number.................. : [id number] ROOM. ................. : -02 Number ................... : [id number] Stay type ............. : E/R Discharge Date......... ... : Admit Date ......... : 04/04 07/24 Admit Phys .................... : PRICILLAPHYLICIANETO Date of ....... : 1965 Family Phys ................... : REGINE GAIL Phone .................. : [phone] Age ................................ : 55 Film# .................. .:[id number] Sex ................................. : F Unsigned transcriptions are preliminary reports and do not represent a medical or legal document CHEST PORTABLE 34470 COMPLETE:05/01/21 21:04 DLA 02130 Reason(s): Palpitation PORTABLE CHEST X- RAY: INDICATION: [...] By Jimmy Ashby M.D. , 05/02/21 13:21, MORobbie Transcribe Initials: REYES , Transcribe Date: 05/02/21 00:37, Dictation Date: Copy for: EMERGENCY DEPT via mode Copy for: 710 MED REC DISCHARGED Page 1 of 1 Name Value Range Interpretation Code Description Data Maura rce(s) Supporting Document(s) ID Date Data Source [id number] 05/02/2021 01:30:00 AM EDT [facility] [address] [place] [address] ---------NAME--------- NUMBER SEX AGE ADMIT DISC. XRAY# F/C TYPE JUANITO Daniels [id number] F 55 05/01/21 247814 BBF E/R DATE OF : 1965 M/R# [id number] #: [id number] TR-02 LOCATION: EMERGENCY DEPT TRANSCRIBED: 05/02/21 1:[address] CTA CHEST NON-CORONARY W [id number] COMPLETED:05/02/21 17 DLA 28943 Reason(s): chest oain palpitation elevated d dimer PHYSICIAN: WYATT ========= R A D I O L O G Y R E P O R T PATIENT HISTORY:ACTUAL DOSE 947.6 mGy*cm chest pain palpitations elevated d dimer isovue [id number] March 2023 was givenPatient hx menopause. Verification of 2 patient identifiers performed.Time Out performed. type and amount of contrast used, correct body part and sideall verified prior to examination. Exam has been sent to [facility] - If further informationis needed, the number is . Report will be faxed to ED and/orXray. / O-MAR, SOFT TISSUE, O-MAR. Compare with non-O-MAR images (DICOM Hx)EXAM: CTA Chest with Intravenous Contrast for PE evaluationCLINICAL HISTORY:ACTUAL DOSE 947.6 mGy*cm chest pain palpitations elevated ddimer isovue 370 75cc [id number] March 2023 was given Patient hx menopause.Verification of 2 patient identifiers performed. Time Out performed. type andamount of contrast used, correct body part and side all verified prior toexamination. Exam has been sent to [facility] - If furtherinformation is needed, the [...] rce(s) Supporting Document(s) ID Date Data Source [id number] 05/01/2021 11:53:00 PM EDT [facility] Name Value Range Interpretation Code Description Data Maura rce(s) Supporting Document(s) [facility] COL[facility] yellow NORMAL: Yellow [facility] CLARITY clear NORMAL: Clear [facility] Specific gravity of Urine by Test strip 1.010 1.001 - 1.030 [facility] pH 6 5 - 9 [facility] Glucose [Mass/volume] in Urine by Test strip NORM NORMAL: Negat [facility] Bilirubin.total [Presence] in Urine by Test strip NEG NORMAL: Negative [facility] Ketones [Presence] in Urine by Test strip NEG NORMAL: Negative [facility] Protein [Mass/volume] in Urine by Test strip [facility]G [facility] Nitrite [Presence] in Urine by Test strip NEG NORMAL: Negative [facility] BLOOD NEG NORMAL: Negative [facility] LEUK EST NEG NORMAL: Negative [facility] Urobilinogen [Mass/volume] in Urine by Test strip NOR less lupe n 1.0 mg/dL [facility] MICROSCOPIC Not Indicate [facility] ID Date Data Source [id number] 05/01/2021 10:09:00 PM [facility] Value Range Interpretation Code Description Data Maura rce(s) Supporting Document(s) Thyrotropin [Units/volume] in Serum or Plasma by Detec tion limit <= 0.05 mIU/L 1.79 uIU/mL 0.47 - 5.01 [facility] ID Date Data Source [id number] 05/01/2021 09:56:00 PM T [facility] Value Range Interpretation Code Description Data Maura rce(s) Supporting Document(s) Fibrin D-dimer FEU [Mass/volume] in Platelet poor plasma 1.21 ug /mL 0.27 - 0.50 H [facility] ID Date Data Source [id number] 05/01/2021 10:11:00 PM T [facility] Value Range Interpretation Code Description Data Maura rce(s) Supporting Document(s) Magnesium [Mass/volume] in Serum or Plasma 1.6 MG/DL 1.7 - 2.2 L [facility] ID Date Data Source [id number] 05/01/2021 10:11:00 PM EDT [facility] Name Value Range Interpretation Code Description Data Maura rce(s) Supporting Document(s) COMPREHENSIVE METABOLIC PANEL [facility] COMPREHENSIVE METABOLIC PANEL Sodium [Moles/volume] in Serum or Plasma 140 mEq/L 134 - 153 [facility] Potassium [Moles/volume] in Serum or Plasma 3.7 mEq/L 3.6 - 5.0 [facility] Chloride [Moles/volume] in Serum or Plasma 102 mEq/L 98 - 107 [facility] Carbon dioxide, total [Moles/volume] in Serum or Plasma 30 MEQ/L 22 - 30 [facility] Glucose [Mass/volume] in Serum or Plasma 109 MG/DL 70 - 99 H [facility] BUN 10 MG/DL 7 - 21 [facility] Creatinine [Mass/volume] in Serum or Plasma 1.1 MG/DL 0.7 - 1.5 [facility] BUN/CREAT 9 8 - 27 [facility] Protein [Mass/volume] in Serum or Plasma 6.0 G/DL 6.3 - 8.2 L [facility] Albumin [Mass/volume] in Serum or Plasma 3.1 G/DL 3.9 - 5.0 L [facility] Globulin [Mass/volume] in Serum by calculation 2.9 GM/DL 2.4 - 3.2 [facility] A/G RATIO 1.1 0.8 - 2.0 [facility] Calcium [Mass/volume] in Serum or Plasma 8.6 MG/DL 8.4 - 10.2 [facility] Bilirubin.total [Mass/volume] in Serum or Plasma <0.7 MG/DL 0.2 - 1.3 [facility] Alkaline phosphatase [Enzymatic activity/volume] in Serum or Plasma 92 U/L 38 - 126 [facility] Aspartate aminotransferase [Enzymatic activity/volume] in Serum or Plasma 26 U/L 5 - 40 [facility] Alanine aminotransferase [Enzymatic activity/volume] in Seru m or Plasma 24 U/L 7 - 56 [facility] Anion gap 3 in Serum or Plasma 8.0 mmol/L 8.0 - 16.0 [facility] AGE 55 yrs [facility] NON-AA GFR 55 mL/min [facility] willy AFR AMER GFR >60 mL/min [facility] Male GFR In terprentation 20-49 [...] >32 mL/min Normal ID Date Data Source [id number] 05/01/2021 10:05:00 PM EDT [facility] Name Value Range Interpretation Code Description Data Maura rce(s) Supporting Document(s) CBC W/AUTOMATED DIFF [facility] COMPLETE BLOOD COUNT Leukocytes [#/volume] in Blood by Automated count 8.4 10^3/uL 4.2 - 1 1.0 [facility] Erythrocytes [#/volume] in Blood by Automated count 2.90 10^6/uL 4. 20 - 5.40 L [facility] Hemoglobin [Mass/volume] in Blood 9.8 g/dL 12.0 - 16.0 L [facility] Hematocrit [Volume Fraction] of Blood by Automated count 30.2 % 3 7.0 - 47.0 L [facility] Erythrocyte mean corpuscular volume [Entitic volume] b y Automated count 104.1 fL 81.0 - 101 H [facility] Erythrocyte mean corpuscular hemoglobin [Entitic mass] by Automated count 33.8 pg 27.0 - 34.0 [facility] Erythrocyte mean corpuscular hemoglobin concentration [Mass/volume] by Automated count 32.5 g/dL 31.0 - 36.0 [facility] Erythrocyte distribution width [Ratio] by Automated count 18.6 % 11.5 - 14.5 H [facility] Platelets [#/volume] in Blood by Automated count 375 10^3/uL 150 - 45 0 [facility] Platelet mean volume [Entitic volume] in Blood by Automated count 9.9 fL 7.4 - 10.4 [facility] Neutrophils/100 leukocytes in Blood by Automated count 63.7 % 37. 0 - 80.0 [facility] Lymphocytes/100 leukocytes in Blood by Manual count 11.3 % 25.0 - 40.0 L [facility] Monocytes/100 leukocytes in Blood by Automated count 20.6 % 3.0 - 8.0 H [facility] Eosinophils/100 leukocytes in Blood by Automated count 2.7 % 0.0 - 7.0 [facility] Basophils/100 leukocytes in Blood by Automated count 0.4 % 0.0 - 2.5 [facility] %IG 1.3 % 0.0 - 0.0 H [facility] %NRBC 0.0 % 0.0 - 0.0 [facility] Neutrophils [#/volume] in Blood by Automated count 5.36 10^3/uL 2.00 - 6.90 [facility] Lymphocytes [#/volume] in Blood by Automated count 0.95 10^3/uL 0.60 - 3.40 [facility] Monocytes [#/volume] in Blood by Automated count 1.73 10^3/uL 0.00 - 0.90 H [facility] Eosinophils [#/volume] in Blood by Automated count 0.23 10^3/uL 0.00 - 0.70 [facility] Basophils [#/volume] in Blood by Automated count 0.03 10^3/uL 0.00 - 0.20 [facility] #IG 0.11 10^3/uL 0.00 - 0.10 H [facility] #NRBC 0.00 10^3/uL 0.00 - 0.00 [facility] ospital MANUAL DIFF SEE BELOW [facility] ital Segmented neutrophils/100 leukocytes in Blood by Manual count 62 % 37 - 80 [facility] %LYMPH 20 % 25 - 40 L [facility] %MONO 15 % 3 - 8 H [facility] %EOS 3 % 0 - 7 [facility] RBC MORPH NOT INDICATED [facility] ID Date Data Source [id number] 05/01/2021 09:29:00 PM EDT [facility] Name Value Range Interpretation Code Description Data Maura rce(s) Supporting Document(s) TROPONIN T 0.02 NG/ML 0.00 - 0.10 [facility] spital TROPONIN T0.1 ng/ml Recommended as the c linical threshold value forTroponin T. ID Date Data Source [id number] 04/30/2021 03:06:00 PM EDT [facility] ([facility] ) Name Value Range Interpretation Code Description Data Maura rce(s) Supporting Document(s) Gram Stain Laboratory test result Normal (applies to non-n umeric results) [facility] ([facility]) QUALITY: GOOD MODERATE WBCS FEW EPITHELIAL CELLS MODERATE GRAM POSITIVE COCCI IN PAIRS AND CHAINS FEW GRAM POSITIVE RODS Sputum Culture Laboratory test result Normal (applies to non-numeric results) [facility] ([facility]) <content>FULL REPORT IN LAB NOTES (eCW a [...] <=1 S</content>
<content></content> ID Date Data Source [id number] 04/24/2021 10:48:00 AM EDT [facility] [address] [place] [address] PHONE: [phone] FAX: [phone] Name .................. : SOLOMON CHANTALE Daniels Acct Number.................. : [id number] ROOM. ................. : TR-03 Number ................... : [id number] Stay type ............. : E/R Discharge Date......... ... : 04/21/21 Admit Date ......... : 04/21/21 Admit Phys .................... : USMAN LOPEZ Date of ....... : 1965 Family Phys ................... : REGINE GAIL Phone .................. : [phone] Age ................................ : 55 Film# .................. .:[id number] Sex ................................. : F Unsigned transcriptions are preliminary reports and do not represent a medical or legal document CHEST PORTABLE 10061 COMPLETE:04/21/21 11:56 67527 Reason(s): COPD PORTABLE CHEST X-RAY: INDICATION: COPD. [...] Dictation Date: Copy for: EMERGENCY DEPT via [facility] Copy for: 710 MED REC DISCHARGED Page 1 of 1 Name Value Range Interpretation Code Description Data Maura rce(s) Supporting Document(s) ID Date Data Source [id number] 04/19/2021 09:17:00 [place] [address] PROGRESS NOTENAME: JUANITO Daniels ROOM#: [id number] OF : 1965 MR#: [id number] DATE: 04/17/21 OF SERVICE: 04/19/2021UBJECTIVE:Chantale Solomon was [...] globulin 2.1, A/G ratio 1.6,calcium 8.7. 1 [place] [address] PROGRESS NOTENAME: JUANITO Daniels ROOM#: [id number] OF : 1965 MR#: [id number] DATE: 04/17/21 /PLAN:The patient has the following [...] rce(s) Supporting Document(s) ID Date Data Source [id number] 04/18/2021 11:15:00 [place] [address] HISTORY AND PHYSICALNAME: JUANITO Daniels ROOM#: [id number] OF : 1965 MR#: [id number] PHYS: Osmel Alvarez MD, PC DATE: 04/17/21CHIEF [...] a historyof carcinoma left lung, goes to [facility] cancer [facility]. She is getting also [...] hypertension. She has been admitted for pneumonia [facility].PAST SURGICAL HISTORY: 1. Appendectomy. 2. Surgery dorsal spine. 1 [place] [address] HISTORY AND PHYSICALNAME: JUANITO Daniels ROOM#: [id number] OF : 1965 MR#: [id number] PHYS: Osmel Alvarez MD, PC DATE: 04/17/21 [...] the left lung.4. History of pneumonia. [address] [place] [address] HISTORY AND PHYSICALNAME: JUANITO Daniels ROOM#: [id number] OF : 1965 MR#: [id number] PHYS: Osmel Alvarez MD, PC DATE: . [...] fibrillation.DD: Osmel Alvarez MD, PC 04/18/21 09:29DT: [facility] 04/18/21 11:15DS: Osmel Alvarez MD, PC 04/23/21 08:33 3 Name Value Range Interpretation Code Description Data Maura rce(s) Supporting Document(s) ID Date Data Source [id number] 04/22/2021 10:11:00 [place] [address] RESPIRATORY CARE REPORT ==== ---------NAME------- NUMBER SEX AGE ADMIT DISC. XRAY# F/C CYNDY Daniels [id number] F 55 04/21/21 04/21/21 [id number] BBF E/R DATE OF : 1965 M/R# [id number] #: [id number] TR-03 LOCATION: EMERGENCY DEPT EKG 34138 COMP LETE:04/22/21 04:41 AJP 58515 PHYSICIAN: USMAN LOPEZ Name Value Range Interpretation Code Description Data Maura rce(s) Supporting Document(s) ID Date Data Source [id number] 04/21/2021 11:41:00 AM EDT [facility] 1 OrderSheet [facility] Emergency Department [address] [place] [address] Phone #: ext- [phone] 04/21/2021 11:25 Patient: [...] Physician;Troponin-T STAT 11:56 04/21/2021 11:59 Kody Ritchie gang punch operatorFlorian Del Rosario Physician; [id number] STAT 11:56 04/21/2021 11:58 Tadeo Peck R.N. Physician;Urinalysis (Clean STAT 11:56 04/21/2021 12:33 BurnhamCatch) Tadeo Ritchie gang punch operatorFlorian Del Rosario ER Physician; [id number] STAT 11:56 04/21/2021 11:58 Tadeo Peck R.N. Physician;Magnesium STAT 11:56 04/21/2021 11:58 Tadeo Peck R.N. Physician;DIAGNOSTIC STUDY ORDERSOrder Description Priority Entered Acknowledged InitialedChest Portable 1 STAT 11:56 04/21/2021 12:14 Cisco,Marysol Jacob R.N.(Oxygen?(No)) Physician; Reason for Study: COPDMEDICATION/IV/DRIP/FLUID ORDERSOrder Description Priority Entered Acknowledged Initialed 2 OrderSheet [facility] Emergency Department [address] [place] [address] Phone #: ext- [phone] 04/21/2021 11:25 Patient: [...] rce(s) Supporting Document(s) ID Date Data Source [id number] 04/21/2021 11:41:00 AM EDT [facility] 1 Medication Reconciliation Report [facility] Emergency Department [address] [place] [address] Phone #: ext- [phone] 04/21/2021 11:25 Patient: [...] administered: 14:47 04/21/2021 2 Medication Reconciliation Report [facility] Emergency Department [address] [place] [address] Phone #: ext- [phone] 04/21/2021 11:25 Patient: CHANTALE SOLOMON Sex: F : 1965 Age: 55yThe following Medications were prescribed to the patient:metoprolol tartrate 25 mg tablet Take 1/2 tablet twice a day for 30 days -- Dispense 30 tablet. Refills: 0.Substitution permitted.[id number] [facility] ; [place], [place] [id number]. . -- Tadeo Ritchie, Physician Name Value Range Interpretation Code Description Data Maura rce(s) Supporting Document(s) ID Date Data Source [id number] 04/21/2021 11:41:00 AM EDT [facility] 1 Medication Administration Record [facility] Emergency Department [address] [place] [address] Phone #: ext- [phone] 04/21/2021 11:25 Patient: CHANTALE SOLOMON Sex: F [...] rce(s) Supporting Document(s) ID Date Data Source [id number] 04/21/2021 11:41:00 AM EDT [facility] 1 General Instructions [facility] Emergency Department [address] [place] [address] Phone #: ext- [phone] 04/21/2021 11:25 Patient: CHANTALE SOLOMON Sex: F [...] Dispense 30 tablet. Refills: 0.Substitution permitted.Pharmacy - [id number] - [address] [place], [place] [id number]. FaxNumber: [phone].Understanding of the discharge instructions verbalized by patient.Follow-up with: Osmel Alvarez MD, Cardiology, , [address] [place] [address], [facility] Follow up as scheduled. Reason for referral: evaluation. Summary of care provided to patient via paper. ADDITIONAL INFORMATIONAbout Arrhythmias 2 General Instructions [facility] Emergency Department [address] [place] [address] Phone #: ext- [phone] 04/21/2021 11:25 Patient: [...] Chest pain or pressure 3 General Instructions [facility] Emergency Department [address] [place] [address] Phone #: ext- [phone] 04/21/2021 11:25 Patient: [...] Obesity Congenital heart disease 4 General Instructions [facility] Emergency Department [address] [place] [address] Phone #: ext- [phone] 04/21/2021 11:25 Patient: [...] help. Tell your doctor about any prescription, vngm-[id number], or herbal medicines you take. These may be affecting your heart rhythm.Follow-up careFollow up with your healthcare provider, or as advised. If a Holter monitor has been recommended,contact the heel shaver you have been referred to as soon as you can chart picker the device. Otheroutpatient tests may also [...] lightheaded, faint, or dizzy 5 General Instructions [facility] Emergency Department [address] [place] [address] Phone #: ext- [phone] 04/21/2021 11:25 Patient: CHANTALE SOLOMON Sex: F [...] getting help while trying to find them. [employer]. [address] [place] [address]. All rights reserved. This information is not intended as asubstitute for professional medical care. Always follow your healthcare professional's instructions. You have been given the following additional information: About Arrhythmias(Electronically signed by Tadeo Ritchie, Physician 04/21/2021 15:08) Name Value Range Interpretation Code Description Data Maura rce(s) Supporting Document(s) ID Date Data Source [id number] 04/21/2021 11:41:00 AM EDT [facility] 1 Clinical Report - Nurses [facility] Emergency Department [address] [place] [address] Phone #: ext- [phone] 04/21/2021 11:25 Patient: CHANTALE SOLOMON Sex: F : 1965 Age: 55yTRIAGE( pt came to door stating "I am in Afib", was seen her Friday and admitted discharged yesterday, statesher hr was up to 160 via her pulse out,, states she is short of breath and racing heart, and has a feeling inher thraot).Acuity: LEVEL 3.Alert.This started today. Onset. 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 SEPSIS SCREEN NEGATIVE. [...] Venous Thrombosis. 2 Clinical Report - Nurses [facility] Emergency Department [address] [place] [address] Phone #: ext- [phone] 04/21/2021 11:25 [id number] Sex: F : 1965 Age: 55yCOPD - [...] had thoughts 3 Clinical Report - Nurses [facility] Emergency Department [address] [place] [address] Phone #: ext- [phone] 04/21/2021 11:25 Patient: CHANTALE SOLOMON Sex: F [...] R.N.NURSING PROGRESS NOTESOxygen administered at 2 liters. telemetry monitor and NIBP monitor placed on patient. Patient gowned.Reassurance given. Two patient identifiers checked. Call light placed in reach. Side rails up x 2. Bedplaced in lowest position. Brakes of bed on. Patient ready for evaluation. --11:31 04/21/21 Orin Pierson R.N. EKG time: (11:30 04/21/2021). EKG was performed by a tech and shown to the ED physician. --11:39 04/21/21 Gravelly gang punch operator, MEG Du Tech1 12:04 04/21/2021 Site #1 started via IV in the left antecubital space with an 20g angiocath; one attempt. Blood drawn: rainbow set and green tube(s). Saline lock flushed with 10 mL saline. --12:05 04/21/21 4 Clinical Report - Nurses [facility] Emergency Department [address] [place] [address] Phone #: ext- [phone] 04/21/2021 11:25 Patient: CHANTALE SOLOMON Sex: F [...] electronically to pharmacy. Reviewed referral to a heel shaver. Patient verbalized understanding. Written instructions provided in Cymro. The patient was discharged by the physician. [...] Peck R.N. 5 Clinical Report - Nurses [facility] Emergency Department [address] [place] [address] Phone #: ext- [phone] 04/21/2021 11:25 Patient: CHANTALE SOLOMON Sex: F : 1965 Age: 55y Name Value Range Interpretation Code Description Data Maura rce(s) Supporting Document(s) ID Date Data Source [id number] 04/21/2021 11:41:00 AM EDT [facility] 1 Clinical Report - Physicians/Mid Levels [facility] Emergency Department [address] [place] [address] Phone #: ext- [phone] 04/21/2021 11:25 Patient: [...] muscle spasms. ( Tightness in throat.). 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 Similar symptoms previously. Recent [...] inspection. 2 Clinical Report - Physicians/Mid Levels [facility] Emergency Department [address] [place] [address] Phone #: ext- [phone] 04/21/2021 11:25 Patient: [...] 8) 3 Clinical Report - Physicians/Mid Levels [facility] Emergency Department [address] [place] [address] Phone #: ext- [phone] 04/21/2021 11:25 Patient: [...] Male GFR Interprentation 20-49 yrs >60 mL/min Lfymyg99-56 yrs >56 mL/min Normal 60-69 yrs >49 mL/min Normal 70-79yrs>42 mL/min Normal 80 and above >35 mL/min Normal Female GFRInterpretation 20-39 yrs >60 mL/min Normal 40-49 yrs >58 mL/minNormal 50-59 yrs >51 mL/min Normal 60-69 yrs >45 mL/min Pfubwr30-23 yrs >39 mL/min Normal 80 and above [...] 125) 4 Clinical Report - Physicians/Mid Levels [facility] Emergency Department [address] [place] [address] Phone #: ext- [phone] 04/21/2021 11:25 Patient: [...] with Jair Johns for Dr Alvarez her heel shaver.recommends Iv Diltiazem.). 12:32 Apr 21 2021. (Patient [...] day. 5 Clinical Report - Physicians/Mid Levels [facility] Emergency Department [address] [place] [address] Phone #: ext- [phone] 04/21/2021 11:25 Patient: [...] tablet. Refills: 0. Substitution permitted. [facility] - [id number] - [address] [place], [place] [id number]. FaxNumber: . Understanding of the discharge instructions verbalized by patient. Follow- up with: Osmel Alvarez MD, Cardiology, , [address] [place] [address], [id number] Follow up as scheduled. Reason for referral: evaluation. Summary of care provided to patient via paper.(Electronically signed by Tadeo Ritchie, Physician 04/21/2021 15:08) Name Value Range Interpretation Code Description Data Maura rce(s) Supporting Document(s) ID Date Data Source [id number] 04/21/2021 02:37:00 PM EDT [facility] Name Value Range Interpretation Code Description Data Maura rce(s) Supporting Document(s) [facility] Clean Catch [facility] ital COLOR yellow NORMAL: Yellow [facility] CLARITY clear NORMAL: Clear [facility] sp[facility] Specific gravity of Urine by Test strip 1.005 1.001 - 1.030 [facility] pH 7 5 - 9 [facility] Glucose [Mass/volume] in Urine by Test strip NORM [facility] Bilirubin.total [Presence] in Urine by Test strip NEG NORMAL: Negative [facility] Ketones [Presence] in Urine by Test strip NEG NORMAL: Negative [facility] Protein [Mass/volume] in Urine by Test strip 30 NORMAL: Negat [facility] Nitrite [Presence] in Urine by Test strip NEG NORMAL: Negative [facility] BLOOD NEG NORMAL: Negative [facility] Leukocyte esterase [Presence] in Urine by Test strip NEG SHAUNA L: Negative [facility] Urobilinogen [Mass/volume] in Urine by Test strip NOR less lupe n 1.0 mg/dL [facility] MICROSCOPIC See Below [facility] ital WBC 0 - 1 NORMAL: NONE SEEN [facility] EPITHELIAL FEW NORMAL: NONE SEEN [facility] Bacteria [Presence] in Urine sediment by Light microscopy Tr david NORMAL: NONE SEEN [facility] ID Date Data Source [id number] 04/21/2021 12:41:00 PM EDT [facility] Name Value Range Interpretation Code Description Data Maura rce(s) Supporting Document(s) BNP 1163 PG/ML 0 - 125 H [facility] ID Date Data Source [id number] 04/21/2021 12:36:00 PM EDT [facility] Name Value Range Interpretation Code Description Data Maura rce(s) Supporting Document(s) Thyrotropin [Units/volume] in Serum or Plasma by Detec tion limit <= 0.05 mIU/L 1.34 uIU/mL 0.47 - 5.01 [facility] ID Date Data Source [id number] 04/21/2021 12:31:00 PM EDT [facility] Name Value Range Interpretation Code Description Data Maura rce(s) Supporting Document(s) CBC W/AUTOMATED DIFF [facility] COMPLETE BLOOD COUNT Leukocytes [#/volume] in Blood by Automated count 7.8 10^3/uL 4.2 - 1 1.0 [facility] Erythrocytes [#/volume] in Blood by Automated count 3.09 10^6/uL 4. 20 - 5.40 L [facility] Hemoglobin [Mass/volume] in Blood 10.4 g/dL 12.0 - 16.0 L [facility] Hematocrit [Volume Fraction] of Blood by Automated count 31.3 % 3 7.0 - 47.0 L [facility] Erythrocyte mean corpuscular volume [Entitic volume] b y Automated count 101.3 fL 81.0 - 101 H [facility] Erythrocyte mean corpuscular hemoglobin [Entitic mass] by Automated count 33.7 pg 27.0 - 34.0 [facility] Erythrocyte mean corpuscular hemoglobin concentration [Mass/volume] by Automated count 33.2 g/dL 31.0 - 36.0 [facility] Erythrocyte distribution width [Ratio] by Automated count 18.0 % 11.5 - 14.5 H [facility] Platelets [#/volume] in Blood by Automated count 190 10^3/uL 150 - 45 0 [facility] Platelet mean volume [Entitic volume] in Blood by Automated count 9.6 fL 7.4 - 10.4 [facility] Neutrophils/100 leukocytes in Blood by Automated count 72.7 % 37. 0 - 80.0 [facility] Lymphocytes/100 leukocytes in Blood by Manual count 9.3 % 25.0 - 40.0 L [facility] Monocytes/100 leukocytes in Blood by Automated count 14.0 % 3.0 - 8.0 H [facility] Eosinophils/100 leukocytes in Blood by Automated count 1.3 % 0.0 - 7.0 [facility] Basophils/100 leukocytes in Blood by Automated count 0.3 % 0.0 - 2.5 [facility] %IG 2.4 % 0.0 - 0.0 H [facility] %NRBC 0.0 % 0.0 - 0.0 [facility] Neutrophils [#/volume] in Blood by Automated count 5.65 10^3/uL 2.00 - 6.90 [facility] Lymphocytes [#/volume] in Blood by Automated count 0.72 10^3/uL 0.60 - 3.40 [facility] Monocytes [#/volume] in Blood by Automated count 1.09 10^3/uL 0.00 - 0.90 H [facility] Eosinophils [#/volume] in Blood by Automated count 0.10 10^3/uL 0.00 - 0.70 [facility] Basophils [#/volume] in Blood by Automated count 0.02 10^3/uL 0.00 - 0.20 [facility] #IG 0.19 10^3/uL 0.00 - 0.10 H [facility] #NRBC 0.00 10^3/uL 0.00 - 0.00 [facility] MANUAL DIFF SEE BELOW [facility] Segmented neutrophils/100 leukocytes in Blood by Manual count 78 % 37 - 80 [facility] %LYMPH 16 % 25 - 40 L [facility] %MONO 6 % 3 - 8 [facility] RBC MORPH SEE BELOW [facility] Anisocytosis [Presence] in Blood by Light microscopy 1+ SHAUNA L: NONE SEEN A [facility] Macrocytes [Presence] in Blood by Light microscopy 1+ NORMAL: NONE SEEN A [facility] { SICKLE CELL (NORMAL: NONE SEEN ) Platelet adequacy [Presence] in Blood by Light microscopy NORMAL NORMAL: NORMAL [facility] COMMENT: ID Date Data Source [id number] 04/21/2021 12:29:00 PM EDT [facility] Name Value Range Interpretation Code Description Data Maura rce(s) Supporting Document(s) Magnesium [Mass/volume] in Serum or Plasma 1.5 MG/DL 1.7 - 2.2 L [facility] ID Date Data Source [id number] 04/21/2021 12:29:00 PM EDT [facility] Name Value Range Interpretation Code Description Data Maura rce(s) Supporting Document(s) COMPREHENSIVE METABOLIC PANEL [facility] COMPREHENSIVE METABOLIC PANEL Sodium [Moles/volume] in Serum or Plasma 134 mEq/L 134 - 153 [facility] Potassium [Moles/volume] in Serum or Plasma 4.1 mEq/L 3.6 - 5.0 [facility] Chloride [Moles/volume] in Serum or Plasma 95 mEq/L 98 - 107 L [facility] Carbon dioxide, total [Moles/volume] in Serum or Plasma 28 MEQ/L 22 - 30 [facility] Glucose [Mass/volume] in Serum or Plasma 130 MG/DL 70 - 99 H [facility] BUN 13 MG/DL 7 - 21 [facility] Creatinine [Mass/volume] in Serum or Plasma 0.8 MG/DL 0.7 - 1.5 [facility] BUN/CREAT 16 8 - 27 [facility] Protein [Mass/volume] in Serum or Plasma 6.7 G/DL 6.3 - 8.2 [facility] Albumin [Mass/volume] in Serum or Plasma 3.8 G/DL 3.9 - 5.0 L [facility] Globulin [Mass/volume] in Serum by calculation 2.9 GM/DL 2.4 - 3.2 [facility] A/G RATIO 1.3 0.8 - 2.0 [facility] Calcium [Mass/volume] in Serum or Plasma 9.2 MG/DL 8.4 - 10.2 [facility] Bilirubin.total [Mass/volume] in Serum or Plasma <0.7 MG/DL 0.2 - 1.3 [facility] Alkaline phosphatase [Enzymatic activity/volume] in Serum or Plasma 161 U/L 38 - 126 H [facility] Aspartate aminotransferase [Enzymatic activity/volume] in Serum or Plasma 47 U/L 5 - 40 H [facility] Alanine aminotransferase [Enzymatic activity/volume] in Seru m or Plasma 35 U/L 7 - 56 [facility] Anion gap 3 in Serum or Plasma 11.0 mmol/L 8.0 - 16.0 [facility] AGE 55 yrs [facility] NON-AA GFR >60 mL/min [facility] ital AFR AMER GFR >60 mL/min [facility] Ho spital Male GFR In terprentation 20-49 [...] >32 mL/min Normal ID Date Data Source [id number] 04/21/2021 12:26:00 PM EDT [facility] Name Value Range Interpretation Code Description Data Maura rce(s) Supporting Document(s) TROPONIN T <0.01 NG/ML 0.00 - 0.10 [facility] ospital TROPONIN T0.1 ng/ml Recommended as the c linical threshold value forTroponin T. ID Date Data Source [id number] 04/20/2021 05:01:00 AM EDT [facility] (Osmel Alvarez MD) Name Value Range Interpretation Code Description Data Maura rce(s) Supporting Document(s) Magnesium [Mass/volume] in Serum or Plasma 1.7 mg/dL 1.7-2.2 [facility] (Osmel Alvarez MD) can run on todays blood ID Date Data Source [id number] 04/20/2021 05:01:00 AM EDT [facility] (Osmel Alvarez MD) Name Value Range Interpretation Code Description Data Maura rce(s) Supporting Document(s) Laboratory test finding (navigational concept) Laboratory test result [facility] (Osmel Alavrez MD) COMPREHENSIVE METABOLIC PANEL Laboratory test finding [...] >32 mL/min Normal ID Date Data Source [id number] 04/20/2021 05:01:00 AM EDT [facility] (Osmel Alvarez [...] Alvarez MD) COMMENT: ID Date Data Source [id number] 04/20/2021 09:24:00 AM EDT [facility] Name Value Range Interpretation Code Description Data Maura rce(s) Supporting Document(s) Magnesium [Mass/volume] in Serum or Plasma 1.7 MG/DL 1.7 - 2.2 [facility] ID Date Data Source [id number] 04/20/2021 08:33:00 AM EDT [facility] Name Value Range Interpretation Code Description Data Maura rce(s) Supporting Document(s) COMPREHENSIVE METABOLIC PANEL [facility] COMPREHENSIVE METABOLIC PANEL Sodium [Moles/volume] in Serum or Plasma 138 mEq/L 134 - 153 [facility] Potassium [Moles/volume] in Serum or Plasma 4.4 mEq/L 3.6 - 5.0 [facility] Chloride [Moles/volume] in Serum or Plasma 102 mEq/L 98 - 107 [facility] Carbon dioxide, total [Moles/volume] in Serum or Plasma 28 MEQ/L 22 - 30 [facility] Glucose [Mass/volume] in Serum or Plasma 107 MG/DL 70 - 99 H [facility] BUN 10 MG/DL 7 - 21 [facility] Creatinine [Mass/volume] in Serum or Plasma 0.7 MG/DL 0.7 - 1.5 [facility] BUN/CREAT 14 8 - 27 [facility] Protein [Mass/volume] in Serum or Plasma 5.4 G/DL 6.3 - 8.2 L [facility] Albumin [Mass/volume] in Serum or Plasma 3.2 G/DL 3.9 - 5.0 L [facility] Globulin [Mass/volume] in Serum by calculation 2.2 GM/DL 2.4 - 3.2 L [facility] A/G RATIO 1.5 0.8 - 2.0 [facility] Calcium [Mass/volume] in Serum or Plasma 8.6 MG/DL 8.4 - 10.2 [facility] Bilirubin.total [Mass/volume] in Serum or Plasma <0.7 MG/DL 0.2 - 1.3 [facility] Alkaline phosphatase [Enzymatic activity/volume] in Serum or Plasma 109 U/L 38 - 126 [facility] Aspartate aminotransferase [Enzymatic activity/volume] in Serum or Plasma 26 U/L 5 - 40 [facility] Alanine aminotransferase [Enzymatic activity/volume] in Seru m or Plasma 20 U/L 7 - 56 [facility] Anion gap 3 in Serum or Plasma 8.0 mmol/L 8.0 - 16.0 [facility] AGE 55 yrs [facility] NON-AA GFR >60 mL/min [facility] ital AFR AMER GFR >60 mL/min [facility] Ho spital Male GFR In terprentation 20-49 [...] >32 mL/min Normal ID Date Data Source [id number] 04/20/2021 07:00:00 AM EDT [facility] Name Value Range Interpretation Code Description Data Maura rce(s) Supporting Document(s) CBC W/AUTOMATED DIFF [facility] COMPLETE BLOOD COUNT Leukocytes [#/volume] in Blood by Automated count 5.9 10^3/uL 4.2 - 1 1.0 [facility] Erythrocytes [#/volume] in Blood by Automated count 2.71 10^6/uL 4. 20 - 5.40 L [facility] Hemoglobin [Mass/volume] in Blood 9.1 g/dL 12.0 - 16.0 L [facility] Hematocrit [Volume Fraction] of Blood by Automated count 27.8 % 3 7.0 - 47.0 L [facility] Erythrocyte mean corpuscular volume [Entitic volume] b y Automated count 102.6 fL 81.0 - 101 H [facility] Erythrocyte mean corpuscular hemoglobin [Entitic mass] by Automated count 33.6 pg 27.0 - 34.0 [facility] Erythrocyte mean corpuscular hemoglobin concentration [Mass/volume] by Automated count 32.7 g/dL 31.0 - 36.0 [facility] Erythrocyte distribution width [Ratio] by Automated count 18.2 % 11.5 - 14.5 H [facility] Platelets [#/volume] in Blood by Automated count 166 10^3/uL 150 - 45 0 [facility] Platelet mean volume [Entitic volume] in Blood by Automated count 9.1 fL 7.4 - 10.4 [facility] Neutrophils/100 leukocytes in Blood by Automated count 80.6 % 37. 0 - 80.0 H [facility] Lymphocytes/100 leukocytes in Blood by Manual count 4.9 % 25.0 - 40.0 L [facility] Monocytes/100 leukocytes in Blood by Automated count 10.8 % 3.0 - 8.0 H [facility] Eosinophils/100 leukocytes in Blood by Automated count 2.5 % 0.0 - 7.0 [facility] Basophils/100 leukocytes in Blood by Automated count 0.2 % 0.0 - 2.5 [facility] %IG 1.0 % 0.0 - 0.0 H [facility] %NRBC 0.0 % 0.0 - 0.0 [facility] Neutrophils [#/volume] in Blood by Automated count 4.77 10^3/uL 2.00 - 6.90 [facility] Lymphocytes [#/volume] in Blood by Automated count 0.29 10^3/uL 0.60 - 3.40 L [facility] Monocytes [#/volume] in Blood by Automated count 0.64 10^3/uL 0.00 - 0.90 [facility] Eosinophils [#/volume] in Blood by Automated count 0.15 10^3/uL 0.00 - 0.70 [facility] Basophils [#/volume] in Blood by Automated count 0.01 10^3/uL 0.00 - 0.20 [facility] #IG 0.06 10^3/uL 0.00 - 0.10 [facility] #NRBC 0.00 10^3/uL 0.00 - 0.00 [facility] MANUAL DIFF SEE BELOW [facility] ital Segmented neutrophils/100 leukocytes in Blood by Manual count 87 % 37 - 80 H [facility] %LYMPH 2 % 25 - 40 L [facility] %MONO 9 % 3 - 8 H [facility] %EOS 2 % 0 - 7 [facility] RBC MORPH SEE BELOW [facility] Anisocytosis [Presence] in Blood by Light microscopy 1+ SHAUNA L: NONE SEEN A [facility] Macrocytes [Presence] in Blood by Light microscopy 1+ NORMAL: NONE SEEN A [facility] Poikilocytosis [Presence] in Blood by Light microscopy 1+ NOR MAL: NONE SEEN A [facility] { SICKLE CELL (NORMAL: NONE SEEN ) Platelet adequacy [Presence] in Blood by Light microscopy NORMAL NORMAL: NORMAL [facility] COMMENT: ID Date Data Source [id number] 04/19/2021 12:39:00 PM EDT [facility] [address] [place] [address] RESPIRATORY CARE REPORT ==== ---------NAME------- NUMBER SEX AGE ADMIT DISC. XRAY# F/C CYNDY Daniels [id number] F [id number] 04/17/21 [id number] BBF O/P DATE OF : 1965 M/R# [id number] #: [id number] CCU1 LOCATION[facility] [id number] COMPL ETE:04/19/21 07:[address] [id number] PHYSICIAN: KIM MENDEZ Name Value Range Interpretation Code Description Data Maura rce(s) Supporting Document(s) ID Date Data Source [id number] 04/19/2021 05:50:00 AM EDT [facility] (Osmel Alvarez [...] (Osmel Alvarez MD) ID Date Data Source [id number] 04/19/2021 05:50:00 AM EDT MEDENT (Osmel Alvarez [...] >32 mL/min Normal ID Date Data Source [id number] 04/19/2021 05:50:00 AM EDT MEDRICH (Osmel Alvarez [...] (Osmel Alvarez MD) ID Date Data Source [id number] 04/19/2021 10:18:00 AM EDT [facility] Value Range Interpretation Code Description Data Maura rce(s) Supporting Document(s) Iron [Mass/volume] in Serum or Plasma 45 UG/DL 42 - 135 [facility] ID Date Data Source [id number] 04/19/2021 08:06:00 AM EDT [facility] Value Range Interpretation Code Description Data Maura rce(s) Supporting Document(s) BNP 692 PG/ML 0 - 125 [facility] ID Date Data Source [id number] 04/19/2021 08:06:00 AM EDT [facility] Value Range Interpretation Code Description Data Maura rce(s) Supporting Document(s) Magnesium [Mass/volume] in Serum or Plasma 1.5 MG/DL 1.7 - 2.2 L [facility] ID Date Data Source [id number] 04/19/2021 08:06:00 AM EDT [facility] Name Value Range Interpretation Code Description Data Maura rce(s) Supporting Document(s) COMPREHENSIVE METABOLIC PANEL [facility] COMPREHENSIVE METABOLIC PANEL Sodium [Moles/volume] in Serum or Plasma 136 mEq/L 134 - 153 [facility] Potassium [Moles/volume] in Serum or Plasma 4.3 mEq/L 3.6 - 5.0 [facility] Chloride [Moles/volume] in Serum or Plasma 101 mEq/L 98 - 107 [facility] Carbon dioxide, total [Moles/volume] in Serum or Plasma 27 MEQ/L 22 - 30 [facility] Glucose [Mass/volume] in Serum or Plasma 108 MG/DL 70 - 99 H [facility] BUN 13 MG/DL 7 - 21 [facility] Creatinine [Mass/volume] in Serum or Plasma 0.8 MG/DL 0.7 - 1.5 [facility] BUN/CREAT 16 8 - 27 [facility] Protein [Mass/volume] in Serum or Plasma 5.4 G/DL 6.3 - 8.2 L [facility] Albumin [Mass/volume] in Serum or Plasma 3.3 G/DL 3.9 - 5.0 L [facility] Globulin [Mass/volume] in Serum by calculation 2.1 GM/DL 2.4 - 3.2 L [facility] A/G RATIO 1.6 0.8 - 2.0 [facility] Calcium [Mass/volume] in Serum or Plasma 8.7 MG/DL 8.4 - 10.2 [facility] Bilirubin.total [Mass/volume] in Serum or Plasma <0.7 MG/DL 0.2 - 1.3 [facility] Alkaline phosphatase [Enzymatic activity/volume] in Serum or Plasma 90 U/L 38 - 126 [facility] Aspartate aminotransferase [Enzymatic activity/volume] in Serum or Plasma 18 U/L 5 - 40 [facility] Alanine aminotransferase [Enzymatic activity/volume] in Seru m or Plasma 16 U/L 7 - 56 [facility] Anion gap 3 in Serum or Plasma 8.0 mmol/L 8.0 - 16.0 [facility] AGE 55 yrs [facility] NON-AA GFR >60 mL/min [facility] ital AFR AMER GFR >60 mL/min [facility] Ho spital Male GFR In terprentation 20-49 [...] >32 mL/min Normal ID Date Data Source [id number] 04/19/2021 06:05:00 AM EDT [facility] Name Value Range Interpretation Code Description Data Maura rce(s) Supporting Document(s) CBC W/AUTOMATED DIFF [facility] COMPLETE BLOOD COUNT Leukocytes [#/volume] in Blood by Automated count 7.3 10^3/uL 4.2 - 1 1.0 [facility] Erythrocytes [#/volume] in Blood by Automated count 2.79 10^6/uL 4. 20 - 5.40 L [facility] Hemoglobin [Mass/volume] in Blood 9.4 g/dL 12.0 - 16.0 L [facility] Hematocrit [Volume Fraction] of Blood by Automated count 28.4 % 3 7.0 - 47.0 L [facility] Erythrocyte mean corpuscular volume [Entitic volume] b y Automated count 101.8 fL 81.0 - 101 H [facility] Erythrocyte mean corpuscular hemoglobin [Entitic mass] by Automated count 33.7 pg 27.0 - 34.0 [facility] Erythrocyte mean corpuscular hemoglobin concentration [Mass/volume] by Automated count 33.1 g/dL 31.0 - 36.0 [facility] Erythrocyte distribution width [Ratio] by Automated count 18.3 % 11.5 - 14.5 H [facility] Platelets [#/volume] in Blood by Automated count 193 10^3/uL 150 - 45 0 [facility] Platelet mean volume [Entitic volume] in Blood by Automated count 8.8 fL 7.4 - 10.4 [facility] Neutrophils/100 leukocytes in Blood by Automated count 85.9 % 37. 0 - 80.0 H [facility] Lymphocytes/100 leukocytes in Blood by Manual count 6.5 % 25.0 - 40.0 L [facility] Monocytes/100 leukocytes in Blood by Automated count 4.7 % 3.0 - 8.0 [facility] Eosinophils/100 leukocytes in Blood by Automated count 2.2 % 0.0 - 7.0 [facility] Basophils/100 leukocytes in Blood by Automated count 0.3 % 0.0 - 2.5 [facility] %IG 0.4 % 0.0 - [facility].0 [facility] 0.[facility] % 0.0 - 0.0 [facility] Neutrophils [#/volume] in Blood by Automated count 6.25 10^3/uL 2.00 - 6.90 [facility] Lymphocytes [#/volume] in Blood by Automated count 0.47 10^3/uL 0.60 - 3.40 L [facility] Monocytes [#/volume] in Blood by Automated count 0.34 10^3/uL 0.00 - 0.90 [facility] Eosinophils [#/volume] in Blood by Automated count 0.16 10^3/uL 0.00 - 0.70 [facility] Basophils [#/volume] in Blood by Automated count 0.02 10^3/uL 0.00 - 0.20 [facility] #IG 0.03 10^3/uL 0.00 - 0.10 [facility] ospital #NRBC 0.00 10^3/uL 0.00 - 0.00 [facility] ospital MANUAL DIFF NOT INDICATED [facility] RBC MORPH NOT INDICATED [facility] spital ID Date Data Source [id number] 04/18/2021 11:21:00 AM EDT [facility] [address] [place] [address] PHONE: [phone] FAX: [phone] Name .................. : JUANITO Daniels Acct Number.................. : [id number] ROOM. ................. : [place]- MR Number ................... : [id number] Stay type ............. : E/R Discharge Date......... ... : Admit Date ......... : 04/17/21 Admit Phys .................... : HEATHERCO Date of ....... : 1965 Family Phys ................... : REGINE GAIL Phone .................. : [phone] Age ................................ : 55 Film# .................. .:[id number] Sex ................................. : F Unsigned transcriptions are preliminary reports and do not represent a medical or legal document CHEST PORTABLE [id number] COMPLETE:04/17/21 18:28 [id number] Reason(s): rapid heart rate PORTABLE CHEST X-RAY: [...] rce(s) Supporting Document(s) ID Date Data Source [id number] 04/18/2021 07:10:00 PM EDT [address] [address] RESPIRATORY CARE REPORT ==== ---------NAME------- NUMBER SEX AGE ADMIT DISC. XRAY# F/C CYNDY Daniels [id number] F [id number] 04/17/21 [id number] [facility] O/P DATE OF : 1965 M/R# [id number] #: [id number] LOCATION: EMERGENCY DEPT EKG [id number] COMPL ETE:04/18/21 07:17 [place] [id number] PHYSICIAN: KIM MENDEZ Name Value Range Interpretation Code Description Data Maura rce(s) Supporting Document(s) ID Date Data Source [id number] 04/18/2021 07:06:00 PM EDT [address] [place] [address] RESPIRATORY CARE REPORT ==== ---------NAME------- NUMBER SEX AGE ADMIT DISC. XRAY# F/C CYNDY Daniels [id number] F [id number] 04/17/21 04/17/21 [id number] [facility] E/R DATE OF : 1965 M/R# [id number] #: [id number] VT-01 LOCATION: EMERGENCY DEPT EKG [id number] COMP LETE:04/18/21 05:26 AJP [id number] PHYSICIAN: WYATT Name Value Range Interpretation Code Description Data Maura rce(s) Supporting Document(s) ID Date Data Source [id number] 04/18/2021 12:59:00 PM EDT [facility] (Osmel Alvarez MD) Name Value Range Interpretation Code Description Data [facility] rce(s) Supporting Document(s) Troponin T.cardiac [Mass/volume] in Serum or Plasma 0.02 ng/mL 0.00-0 .10 [facility] (Osmel Alvarez MD) TROPONIN T 0.1 ng/ml Recommended as the clinical th reshold value for Troponin T. ID Date Data Source [id number] 04/18/2021 01:27:00 PM EDT [facility] Name Value Range Interpretation Code Description Data [facility] rce(s) Supporting Document(s) TROPONIN T 0.02 NG/ML 0.00 - 0.10 [facility] spital TROPONIN T0.1 ng/ml Recommended as the c linical threshold value forTroponin T. ID Date Data Source [id number] 04/18/2021 06:59:00 AM EDT [facility] (Osmel Alvarez MD) Name Value Range Interpretation Code Description Data [facility] rce(s) Supporting Document(s) Troponin T.cardiac [Mass/volume] in [...] (Osmel Alvarez MD) ID Date Data Source [id number] 04/18/2021 06:59:00 AM EDT [facility] (Osmel Alvarez [...] (Osmel Alvarez MD) ID Date Data Source [id number] 04/18/2021 06:59:00 AM EDT [facility] (Osmel Alvarez [...] >32 mL/min Normal ID Date Data Source [id number] 04/18/2021 06:59:00 AM EDT [facility] (Osmel Alvarez [...] (Osmel Alvarez MD) ID Date Data Source [id number] 04/18/2021 10:37:00 AM EDT [facility] Name Value Range Interpretation Code Description Data Maura rce(s) Supporting Document(s) Cobalamin (Vitamin B12) [Mass/volume] in Serum or Plasma 390 PG/ML 232 - 1245 [facility] ID Date Data Source [id number] 04/18/2021 10:20:00 AM EDT [facility] Name Value Range Interpretation Code Description Data Maura rce(s) Supporting Document(s) Iron [Mass/volume] in Serum or Plasma 77 UG/DL 42 - 135 [facility] ID Date Data Source [id number] 04/18/2021 08:26:00 AM EDT [facility] Value Range Interpretation Code Description Data Maura rce(s) Supporting Document(s) Thyrotropin [Units/volume] in Serum or Plasma by Detec tion limit <= 0.05 mIU/L 1.68 uIU/mL 0.47 - 5.01 [facility] ID Date Data Source [id number] 04/18/2021 08:05:00 AM EDT [facility] Name Value Range Interpretation Code Description Data Maura rce(s) Supporting Document(s) BNP 766 PG/ML 0 - 125 [facility] ID Date Data Source [id number] 04/18/2021 08:05:00 AM EDT [facility] Value Range Interpretation Code Description Data Maura rce(s) Supporting Document(s) COMPREHENSIVE METABOLIC PANEL [facility] COMPREHENSIVE METABOLIC PANEL Sodium [Moles/volume] in Serum or Plasma 141 mEq/L 134 - 153 [facility] Potassium [Moles/volume] in Serum or Plasma 4.3 mEq/L 3.6 - 5.0 [facility] Chloride [Moles/volume] in Serum or Plasma 101 mEq/L 98 - 107 [facility] Carbon dioxide, total [Moles/volume] in Serum or Plasma 31 MEQ/L 22 - 30 H [facility] Glucose [Mass/volume] in Serum or Plasma 101 MG/DL 70 - 99 H [facility] BUN 14 MG/DL 7 - 21 [facility] Creatinine [Mass/volume] in Serum or Plasma 0.8 MG/DL 0.7 - 1.5 [facility] BUN/CREAT 18 8 - 27 [facility] Protein [Mass/volume] in Serum or Plasma 5.5 G/DL 6.3 - 8.2 L [facility] Albumin [Mass/volume] in Serum or Plasma 3.5 G/DL 3.9 - 5.0 L [facility] Globulin [Mass/volume] in Serum by calculation 2.0 GM/DL 2.4 - 3.2 L [facility] A/G RATIO 1.8 0.8 - 2.0 [facility] Calcium [Mass/volume] in Serum or Plasma 8.8 MG/DL 8.4 - 10.2 [facility] Bilirubin.total [Mass/volume] in Serum or Plasma <0.7 MG/DL 0.2 - 1.3 [facility] Alkaline phosphatase [Enzymatic activity/volume] in Serum or Plasma 99 U/L 38 - 126 [facility] Aspartate aminotransferase [Enzymatic activity/volume] in Serum or Plasma 18 U/L 5 - 40 [facility] Alanine aminotransferase [Enzymatic activity/volume] in Seru m or Plasma 17 U/L 7 - 56 [facility] Anion gap 3 in Serum or Plasma 9.0 mmol/L 8.0 - 16.0 [facility] AGE 55 yrs [facility] NON-AA GFR >60 mL/min [facility] ital AFR AMER GFR >60 mL/min [facility] Ho spital Male GFR In terprentation 20-49 [...] >32 mL/min Normal ID Date Data Source [id number] 04/18/2021 08:04:00 AM EDT [facility] Name Value Range Interpretation Code Description Data Maura rce(s) Supporting Document(s) Thyroxine (T4) free index in Serum or Plasma by calculation 1.23 NG/DL 0.93 - 1.70 [facility] ID Date Data Source [id number] 04/18/2021 08:04:00 AM EDT [facility] Name Value Range Interpretation Code Description Data Maura rce(s) Supporting Document(s) Magnesium [Mass/volume] in Serum or Plasma 1.7 MG/DL 1.7 - 2.2 [facility] ID Date Data Source [id number] 04/18/2021 07:53:00 AM EDT [facility] Name Value Range Interpretation Code Description Data Maura rce(s) Supporting Document(s) TROPONIN T 0.02 NG/ML 0.00 - 0.10 [facility] spital TROPONIN T0.1 ng/ml Recommended as the c linical threshold value forTroponin T. ID Date Data Source [id number] 04/18/2021 07:30:00 AM T [facility] Name Value Range Interpretation Code Description Data Maura rce(s) Supporting Document(s) CBC W/AUTOMATED DIFF [facility] COMPLETE BLOOD COUNT Leukocytes [#/volume] in Blood by Automated count 8.9 10^3/uL 4.2 - 1 1.0 [facility] Erythrocytes [#/volume] in Blood by Automated count 3.08 10^6/uL 4. 20 - 5.40 L [facility] Hemoglobin [Mass/volume] in Blood 10.3 g/dL 12.0 - 16.0 L [facility] Hematocrit [Volume Fraction] of Blood by Automated count 31.2 % 3 7.0 - 47.0 L [facility] Erythrocyte mean corpuscular volume [Entitic volume] b y Automated count 101.3 fL 81.0 - 101 H [facility] Erythrocyte mean corpuscular hemoglobin [Entitic mass] by Automated count 33.4 pg 27.0 - 34.0 [facility] Erythrocyte mean corpuscular hemoglobin concentration [Mass/volume] by Automated count 33.0 g/dL 31.0 - 36.0 [facility] Erythrocyte distribution width [Ratio] by Automated count 18.5 % 11.5 - 14.5 H [facility] Platelets [#/volume] in Blood by Automated count 244 10^3/uL 150 - 45 0 [facility] Platelet mean volume [Entitic volume] in Blood by Automated count 8.5 fL 7.4 - 10.4 [facility] Neutrophils/100 leukocytes in Blood by Automated count 88.8 % 37. 0 - 80.0 H [facility] Lymphocytes/100 leukocytes in Blood by Manual count 5.7 % 25.0 - 40.0 L [facility] Monocytes/100 leukocytes in Blood by Automated count 2.7 % 3.0 - 8.0 L [facility] Eosinophils/100 leukocytes in Blood by Automated count 2.0 % 0.0 - 7.0 [facility] Basophils/100 leukocytes in Blood by Automated count 0.2 % 0.0 - 2.5 [facility] %IG 0.6 % 0.0 - 0.0 [facility] %NRBC 0.0 % 0.0 - 0.0 [facility] al Neutrophils [#/volume] in Blood by Automated count 7.88 10^3/uL 2.00 - 6.90 H [facility] Lymphocytes [#/volume] in Blood by Automated count 0.51 10^3/uL 0.60 - 3.40 L [facility] Monocytes [#/volume] in Blood by Automated count 0.24 10^3/uL 0.00 - 0.90 [facility] Eosinophils [#/volume] in Blood by Automated count 0.18 10^3/uL 0.00 - 0.70 [facility] Basophils [#/volume] in Blood by Automated count 0.02 10^3/uL 0.00 - 0.20 [facility] #IG 0.05 10^3/uL 0.00 - 0.10 [facility]spital #NRBC 0.00 10^3/uL 0.00 - 0.00 [facility] ospital MANUAL DIFF NOT INDICATED [facility] RBC MORPH NOT INDICATED [facility] spital ID Date Data Source [id number] 04/17/2021 09:27:00 PM EDT [facility] 1 OrderSheet [facility] Emergency Department [address] [place] [address] Phone #: ext- [phone] 04/17/2021 21:23 Patient: [...] rce(s) Supporting Document(s) ID Date Data Source [id number] 04/17/2021 09:27:00 PM EDT [facility] 1 Medication Reconciliation Report [facility] Emergency Department [address] [place] [address] Phone #: ext- [phone] 04/17/2021 21:23 Patient: [...] to the patient:None. 2 Medication Reconciliation Report [facility] Emergency Department [address] [place] [address] Phone #: [phone]- [phone] 04/17/2021 21:23 Patient: CHANTALE SOLOMON Sex: F : 1965 Age: 55y Name Value Range Interpretation Code Description Data Maura rce(s) Supporting Document(s) ID Date Data Source [id number] 04/17/2021 09:27:00 PM EDT [facility] 1 Medication Administration Record [facility] Emergency Department [address] [place] [address] Phone #: ext- [phone] 04/17/2021 21:23 Patient: CHANTALE SOLOMON Sex: F : 1965 Age: 55yWeight: 79.3 kgHeight/Length: 60 inBMI: 34.1ALLERGIES: Penicillins, Seafood Date/Time Medication Administered Medication OrderedGiven DILTIAZEM [PO] - (diltiazem 180 mg PO)22:12 04/17/2021 Dose: 180 mg Nidia Sanders R.N. Name Value Range Interpretation Code Description Data Maura e(s) Supporting Document(s) ID Date Data Source [id number] 04/17/2021 09:27:00 PM EDT [facility] 1 General Instructions [facility] Emergency Department [address] [place] [address] Phone #: ext- [phone] 04/17/2021 21:23 Patient: CHANTALE SOLOMON Sex: F : 1965 Age: 55yParoxysmal atrial fibrillation.(Electronically signed by Gloria Schneider 04/18/2021 01:18) Name Value Range Interpretation Code Description Data Maura rce(s) Supporting Document(s) ID Date Data Source [id number] 04/17/2021 09:27:00 PM EDT [place] [address] Clinical Report - Nurses [facility] Emergency Department [address] [place] [address] Phone #: ext- [phone] 04/17/2021 21:23 Patient: CHANTALE SOLOMON Sex: F [...] she got homeshe went back into A-Fib.).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 --21:37 04/17/21 Edyta Harris1:33 04/17/21. BP: [...] Disease.Heart Disease. 2 Clinical Report - Nurses [facility] Emergency Department [address] [place] [address] Phone #: ext- [phone] 04/17/2021 21:23 [id number] Sex[facility] F : 1965 Age: 55yHypertension.Hemoptysis.Atrial Fibrillation.Anemia.Back [...] abuse. No 3 Clinical Report - Nurses [facility] Emergency Department [address] [place] [address] Phone #: ext- [phone] 04/17/2021 21:23 [id number] Sex: F : 1965 Age: 55y report [...] understanding. --22:12 4 Clinical Report - Nurses [facility] Emergency Department [address] [place] [address] Phone #: ext- [phone] 04/17/2021 21:23 Patient: [...] Peck R.N.Locked/Released at 04/17/2021 23:43 by Nidia Pcek R.N. Name Value Range Interpretation Code Description Data Maura rce(s) Supporting Document(s) ID Date Data Source [id number] 04/17/2021 09:27:00 PM EDT [facility] 1 Clinical Report - Physicians/Mid Levels [facility] Emergency Department [address] [place] [address] Phone #: ext- [phone] 04/17/2021 21:23 Patient: [...] Attack. 2 Clinical Report - Physicians/Mid Levels [facility] Emergency Department [address] [place] [address] Phone #: ext- [phone] 04/17/2021 21:23 Patient: [...] distress. 3 Clinical Report - Physicians/Mid Levels [facility] Emergency Department [address] [place] [address] Phone #: ext- [phone] 04/17/2021 21:23 Patient: [...] fibrillation. 4 Clinical Report - Physicians/Mid Levels [facility] Emergency Department [address] [place] [address] Phone #: ext- [phone] 04/17/2021 21:23 Patient: CHANTALE SOLOMON Sex: F : 1965 Age: 55y(Electronically signed by Gloria Schneider 04/18/2021 01:18) Name Value Range Interpretation Code Description Data Maura rce(s) Supporting Document(s) ID Date Data Source [id number] 04/17/2021 06:22:00 PM EDT [facility] 1 OrderSheet [facility] Emergency Department [address] [place] [address] Phone #: ext- [phone] 04/17/2021 18:21 [id number] Sex: F : 1965 Age: 55yWEIGHT:79.3 kg [...] Wyatt Harris Victoria Katelyn ; 2 OrderSheet [facility] Emergency Department [address] [place] [address] Phone #: ext- [phone] 04/17/2021 18:21 [id number] Sex: F : 1965 Age: 55yDIAGNOSTIC STUDY ORDERSOrder Description Priority Entered Acknowledged InitialedChest Portable 1 STAT 18:28 04/17/2021 19:07 Marysol Yonugblood Victoria Frank R.N.(Oxygen?(No)) ; Reason for Study: rapid heart rateMEDICATION/IV/DRIP/FLUID ORDERSOrder Description Priority Entered Acknowledged InitialedNS IV : 150 mL/hr 18:56 04/17/2021 19:15 Wyatt Chanel Victoria Laura RKellenNKellen ;Cardizem IVP 10 18:56 04/17/2021 19:13 Yanique,mg Gloria Schneider R.N. ;GENERAL ORDERSOrder Description Priority Entered Acknowledged InitialedAccucheck 18:28 04/17/2021 19:06 Wyatt Harris Victoria Katelyn ;Grinder Set Up Operator Universal 18:28 04/17/2021 19:06 Kimberly(continuous) Gloria Schneider ;EKG [...] Lock 18:28 04/17/2021 19:06 Kimberly, 3 OrderSheet [facility] Emergency Department [address] [place] [address] Phone #: ext- [phone] 04/17/2021 18:21 Patient: CHANTALE SOLOMON Sex: F : 1965 Age: 55y Gloria Schneider ;Vitals 18:28 04/17/2021 19:06 Wyatt Harris Victoria Katelyn ;[Electronically signed by Lynette Harris (21:01 04/17/2021)][Electronically signed by Gloria Schneider (01:17 04/18/2021)][Electronically locked by Lynette Harris (:04/17/2021)] Name Value Range Interpretation Code Description Data Maura rce(s) Supporting Document(s) ID Date Data Source [id number] 04/17/2021 06:22:00 PM EDT [facility] 1 Medication Reconciliation Report [facility] Emergency Department [address] [place] [address] Phone #: ext- [phone] 04/17/2021 18:21 Patient: [...] mL/hr, administered: :04/17/2021 2 Medication Reconciliation Report [facility] Emergency Department [address] [place] [address] Phone #: ext- [phone] 04/17/2021 18:21 Patient: CHANTALE SOLOMON Sex: F : 1965 Age: 55yThe following Medications were prescribed to the patient:None. Name Value Range Interpretation Code Description Data Maura rce(s) Supporting Document(s) ID Date Data Source [id number] 04/17/2021 06:22:00 PM EDT [facility] 1 Medication Administration Record [facility] Emergency Department [address] [place] [address] Phone #: ext- [phone] 04/17/2021 18:21 Patient: [...] rce(s) Supporting Document(s) ID Date Data Source [id number] 04/17/2021 06:22:00 PM EDT [facility] 1 General Instructions [facility] Emergency Department [address] [place] [address] Phone #: ext- [phone] 04/17/2021 18:21 Patient: [...] daily.Follow-up with: Osmel Alvarez MD, Cardiology, , [address] [place] [address], [phone] Follow up tomorrow. Reason for referral: at 9:30 am. ADDITIONAL INFORMATIONAtrial Fibrillation 2 General Instructions [facility] Emergency Department [address] [place] [address] Phone #: ext- [phone] 04/17/2021 18:21 Patient: [...] a couple ofdays. Or it may become intermediate designer (chronic), lasting for months at a time [...] heart valves Enlarged heart 3 General Instructions [facility] Emergency Department [address] [place] [address] Phone #: ext- [phone] 04/17/2021 18:21 Patient: [...] If you smoke, stop smoking. Contact your [facility] provider or a local stop-smoking program [...] work as they should. 4 General Instructions [facility] Emergency Department [address] [place] [address] Phone #: ext- [phone] 04/17/2021 18:21 Patient: [...] vision Extreme drowsiness, confusion, dizziness, or fainting [phone] [employer] [address] [place] [address]. All rights reserved. This information is not intended as asubstitute for professional medical care. Always follow your healthcare professional's instructions. You have been given the following additional information: 5 General Instructions [facility] Emergency Department [address] [place] [address] Phone #: ext- [phone] 04/17/2021 18:21 Patient: CHANTALE SOLOMON Sex: F : 1965 Age: 55yAtrial Fibrillation(Electronically signed by Gloria Schneider 04/18/2021 01:17) Name Value Range Interpretation Code Description Data Maura rce(s) Supporting Document(s) ID Date Data Source [id number] 04/17/2021 06:22:00 PM EDT [facility] 1 Clinical Report - Nurses [facility] Emergency Department [address] [place] [address] Phone #: ext- [phone] 04/17/2021 18:21 Patient: [...] started today. 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 SEPSIS SCREEN NEGATIVE. [...] Pierson R.N. 2 Clinical Report - Nurses [facility] Emergency Department [address] [place] [address] Phone #: ext- [phone] 04/17/2021 18:21 [id number] Sex: F : 1965 Age: 55yDVT - [...] had thoughts 3 Clinical Report - Nurses [facility] Emergency Department [address] [place] [address] Phone #: ext- [phone] 04/17/2021 18:21 Patient: [...] treatment room. --18:51 04/17/21 Orin Pierson R.N.PHYSICAL [id number] 04/17/21. To room via wheelchair. Patient gowned.GENERAL [...] R.N.NURSING PROGRESS NOTESOxygen administered at 2 liters. telemetry monitor and NIBP monitor placed on patient. [...] Lynette Harris 4 Clinical Report - Nurses [facility] Emergency Department [address] [place] [address] Phone #: ext- [phone] 04/17/2021 18:21 ------- Patient: CHANTALE SOLOMON Sex: [...] Patient verbalized understanding. Written instructions provided in Cymro. The patient was discharged by the physician. She was discharged home and accompanied by spouse. She left ambulatory and via private vehicle. Spouse driving. --21:01 04/17/21 Lynette Harris 21:00 04/17/21. BP: 118/73. HR: 99. RR: 24. O2 saturation: 100%. Temp: 97.7 F. Pain level now 0/10. --21:01 04/17/21 Lynette Harris. 5 Clinical Report - Nurses [facility] Emergency Department [address] [place] [address] Phone #: ext- [phone] 04/17/2021 18:21 [id number] Sex: F : 1965 Age: 55yLocked/Released at 04/17/2021 21:01 by Lynette Harris Name Value Range Interpretation Code Description Data Maura rce(s) Supporting Document(s) ID Date Data Source [id number] 04/17/2021 06:22:00 PM EDT [facility] 1 Clinical Report - Physicians/Mid Levels [facility] Emergency Department [address] [place] [address] Phone #: ext- [phone] 04/17/2021 18:21 Patient: [...] Attack. 2 Clinical Report - Physicians/Mid Levels [facility] Emergency Department [address] [place] [address] Phone #: ext- [phone] 04/17/2021 18:21 Patient: [...] distress. 3 Clinical Report - Physicians/Mid Levels [facility] Emergency Department [address] [place] [address] Phone #: ext- [phone] 04/17/2021 18:21 Patient: [...] 0.0) 4 Clinical Report - Physicians/Mid Levels [facility] Emergency Department [address] [place] [address] Phone #: ext- [phone] 04/17/2021 18:21 Patient: [...] Male GFR Interprentation 20-49 yrs >60 mL/min Sraeft92-61 yrs >56 mL/min Normal 60-69 yrs >49 mL/min Normal 70-79yrs>42 mL/min Normal 80 and above >35 mL/min Normal Female GFRInterpretation 20-39 yrs >60 mL/min Normal 40-49 yrs >58 mL/minNormal 50-59 yrs >51 mL/min Normal 60-69 yrs >45 mL/min Opafib84-28 yrs >39 mL/min Normal 80 and above >32 mL/min NormalMagnesium: (SARAH: 04/17/2021 18:48) ( [facility] [place]17[place] 19:53) Final results Test Result Flag Units (Reference) MAGNESIUM 1.8 MG/DL (1.7 - 2.2)Troponin-T: (SARAH: 04/17/2021 18:48) ( [facility] [place] 04/17/2021 19:26) Final results Test Result Flag Units (Reference) TROPONIN T 0.02 NG/ML (0.00 - 0.10) TROPONIN T0.1 ng/ml Recommended as the clinical threshold value forTroponin T.TSH: (SARAH: 04/17/2021 18:48) ( [facility] [place] 04/17/2021 19:53) Final results Test Result Flag Units (Reference) TSH 2.85 uIU/mL (0.47 - 5.01) 5 Clinical Report - Physicians/Mid Levels [facility] Emergency Department [address] [place] [address] Phone #: ext- [phone] 04/17/2021 18:21 Patient: CHANTALE SOLOMON Sex: F : 1965 Age: 55y CPK: (SARAH: 04/17/2021 18:48) ( [facility] [place] 04/17/2021 19:32) Final results [...] Thrombosis, Pulmonary Embolus, Tissue heart valves, Acute SD, Atrial Fibrillation, Valvular heart disease and recurrent [...] rate. 6 Clinical Report - Physicians/Mid Levels [facility] Emergency Department [address] [place] [address] Phone #: [phone]- [phone] 04/17/2021 18:21 Patient: CHANTALE SOLOMON Sex: F [...] Follow-up with: Osmel Alvarez MD, Cardiology, , [address] [place] [address], [phone] Follow up tomorrow. Reason for referral: at 9:30 am.(Electronically signed by Gloria Schneider 04/18/2021 01:17) Name Value Range Interpretation Code Description Data Maura rce(s) Supporting Document(s) ID Date Data Source [id number] 04/18/2021 01:05:00 AM EDT [facility] (Osmel Alvarez MD) Name Value Range Interpretation Code Description Data Maura rce(s) Supporting Document(s) Troponin T.cardiac [Mass/volume] in Serum or Plasma 0.02 ng/mL 0.00-0 .10 [facility] (Osmel Alvarez MD) TROPONIN T 0.1 ng/ml Recommended as the clinical th reshold value for Troponin T. ID Date Data Source [id number] 04/18/2021 01:38:00 AM EDT [facility] Name Value Range Interpretation Code Description Data Maura rce(s) Supporting Document(s) TROPONIN T 0.02 NG/ML 0.00 - 0.10 [facility] TROPONIN T0.1 ng/ml Recommended as the c linical threshold value forTroponin T. ID Date Data Source [id number] 04/17/2021 09:56:00 PM EDT [facility] (Osmel Alvarez [...] CDC?: N~Hospitalized?: Y ID Date Data Source [id number] 04/17/2021 09:56:00 PM EDT [facility] Name Value Range Interpretation Code Description Data [facility] Supporting [facility](s) COVID19 Case rprt NOT DETECTED [facility] This lab was ordered by [facility] and reported by [facility]. ID Date Data Source [id number] 04/17/2021 10:37:00 PM EDT [facility] NOT DETECTEDNOT DETECTED{ PROC EDURAL [...] rce(s) Supporting Document(s) ID Date Data Source [id number] 04/17/2021 07:56:00 PM EDT [facility] Name Value Range Interpretation Code Description Data Maura rce(s) Supporting Document(s) BNP 750 PG/ML 0 - 125 H [facility] al ID Date Data Source [id number] 04/17/2021 07:55:00 PM EDT [facility] Name Value Range Interpretation Code Description Data [facility](s) Supporting Document(s) COMPREHENSIVE METABOLIC PANEL [facility] COMPREHENSIVE METABOLIC PANEL Sodium [Moles/volume] in Serum or Plasma 136 mEq/L 134 - 153 [facility] Potassium [Moles/volume] in Serum or Plasma 3.7 mEq/L 3.6 - 5.0 [facility] Chloride [Moles/volume] in Serum or Plasma 94 mEq/L 98 - 107 L [facility] Carbon dioxide, total [Moles/volume] in Serum or Plasma 29 MEQ/L 22 - 30 [facility] Glucose [Mass/volume] in Serum or Plasma 113 MG/DL 70 - 99 H [facility] BUN 17 MG/DL 7 - 21 [facility] Creatinine [Mass/volume] in Serum or Plasma 0.8 MG/DL 0.7 - 1.5 [facility] BUN/CREAT 21 8 - 27 [facility] Protein [Mass/volume] in Serum or Plasma 6.6 G/DL 6.3 - 8.2 [facility] Albumin [Mass/volume] in Serum or Plasma 4.3 G/DL 3.9 - 5.0 [facility] Globulin [Mass/volume] in Serum by calculation 2.3 GM/DL 2.4 - 3.2 L [facility] A/G RATIO 1.9 0.8 - 2.0 [facility] Calcium [Mass/volume] in Serum or Plasma 9.3 MG/DL 8.4 - 10.2 [facility] Bilirubin.total [Mass/volume] in Serum or Plasma <0.7 MG/DL 0.2 - 1.3 [facility] Alkaline phosphatase [Enzymatic activity/volume] in Serum or Plasma 117 U/L 38 - 126 [facility] Aspartate aminotransferase [Enzymatic activity/volume] in Serum or Plasma 22 U/L 5 - 40 [facility] Alanine aminotransferase [Enzymatic activity/volume] in Seru m or Plasma 24 U/L 7 - 56 [facility] Anion gap 3 in Serum or Plasma 13.0 mmol/L 8.0 - 16.0 [facility] AGE 55 yrs [facility] NON-AA GFR >60 mL/min [facility] ital AFR AMER GFR >60 mL/min [facility] spital Male GFR In terprentation 20-49 [...] >32 mL/min Normal ID Date Data Source [id number] 04/17/2021 07:53:00 PM EDT [facility] Name Value Range Interpretation Code Description Data Maura rce(s) Supporting Document(s) Thyrotropin [Units/volume] in Serum or Plasma by Detec tion limit <= 0.05 mIU/L 2.85 uIU/mL 0.47 - 5.01 [facility] ID Date Data Source [id number] 04/17/2021 07:53:00 PM EDT [facility] Value Range Interpretation Code Description Data Maura rce(s) Supporting Document(s) Magnesium [Mass/volume] in Serum or Plasma 1.8 MG/DL 1.7 - 2.2 [facility] ID Date Data Source [id number] 04/17/2021 07:32:00 PM EDT [facility] Value Range Interpretation Code Description Data Maura rce(s) Supporting Document(s) Creatine kinase [Enzymatic activity/volume] in Serum or Plasma 2 9 U/L 30 - 170 L [facility] ID Date Data Source [id number] 04/17/2021 07:26:00 PM EDT [facility] Name Value Range Interpretation Code Description Data [facility](s) Supporting Document(s) TROPONIN T 0.02 NG/ML 0.00 - 0.10 [facility] spital TROPONIN T0.1 ng/ml Recommended as the c linical threshold value forTroponin T. ID Date Data Source [id number] 04/17/2021 07:21:00 PM EDT [facility] Name Value Range Interpretation Code Description Data [facility] Supporting Document(s) Prothrombin time (PT) 15.3 SECONDS 11.0 - 15.5 [facility] INR in Platelet poor plasma by Coagulation assay 1.19 0.93 - 1. 23 [facility] \\BLDo\\INR INTERPRETATION\\BLDx\\ Therapeutic range for Coumadin and related oral anticoagulants. - International Normalized Ratio (INR): 2.0 - 3.0 for Venous Thrombosis, Pulmonary Embolus, Tissue heart valves, Acute SD, Atrial Fibrillation, Valvular heart disease and recurrent Systemic Embolism. -International Normalized Ratio (INR): 2.5 - 3.5 for Mechanical Prosthetic valve. ID Date Data Source [id number] 04/17/2021 07:02:00 PM EDT [facility] Name Value Range Interpretation Code Description Data [facility](s) Supporting Document(s) CBC W/AUTOMATED DIFF [facility] COMPLETE BLOOD COUNT Leukocytes [#/volume] in Blood by Automated count 13.5 10^3/uL 4.2 - 11.0 H [facility] Erythrocytes [#/volume] in Blood by Automated count 3.46 10^6/uL 4. 20 - 5.40 L [facility] Hemoglobin [Mass/volume] in Blood 11.8 g/dL 12.0 - 16.0 L [facility] Hematocrit [Volume Fraction] of Blood by Automated count 35.2 % 3 7.0 - 47.0 L [facility] Erythrocyte mean corpuscular volume [Entitic volume] b y Automated count 101.7 fL 81.0 - 101 H [facility] Erythrocyte mean corpuscular hemoglobin [Entitic mass] by Automated count 34.1 pg 27.0 - 34.0 H [facility] Erythrocyte mean corpuscular hemoglobin concentration [Mass/volume] by Automated count 33.5 g/dL 31.0 - 36.0 [facility] Erythrocyte distribution width [Ratio] by Automated count 18.5 % 11.5 - 14.5 H [facility] Platelets [#/volume] in Blood by Automated count 319 10^3/uL 150 - 45 0 [facility] Platelet mean volume [Entitic volume] in Blood by Automated count 8.7 fL 7.4 - 10.4 [facility] Neutrophils/100 leukocytes in Blood by Automated count 83.7 % 37. 0 - 80.0 H [facility] Lymphocytes/100 leukocytes in Blood by Manual count 11.4 % 25.0 - 40.0 L [facility] Monocytes/100 leukocytes in Blood by Automated count 2.5 % 3.0 - 8.0 L [facility] Eosinophils/100 leukocytes in Blood by Automated count 1.8 % 0.0 - 7.0 [facility] Basophils/100 leukocytes in Blood by Automated count 0.1 % 0.0 - 2.5 [facility] %IG 0.5 % 0.0 - 0.0 H [facility] %NRBC 0.0 % 0.0 - 0.0 [facility] Neutrophils [#/volume] in Blood by Automated count 11.25 10^3/uL 2. 00 - 6.90 H [facility] Lymphocytes [#/volume] in Blood by Automated count 1.53 10^3/uL 0.60 - 3.40 [facility] Monocytes [#/volume] in Blood by Automated count 0.34 10^3/uL 0.00 - 0.90 [facility] Eosinophils [#/volume] in Blood by Automated count 0.24 10^3/uL 0.00 - 0.70 [facility] Basophils [#/volume] in Blood by Automated count 0.02 10^3/uL 0.00 - 0.20 [facility] #IG 0.07 10^3/uL 0.00 - 0.10 [facility] #NRBC 0.00 10^3/uL 0.00 - 0.00 [facility] MANUAL DIFF NOT INDICATED [facility] RBC MORPH NOT INDICATED [facility] spital ID Date Data Source [id number] 04/11/2021 09:38:00 AM EDT [facility] (Osmel Alvarez MD) Name Value Range Interpretation Code Description Data Maura rce(s) Supporting Document(s) Magnesium [Mass/volume] in Serum or Plasma 1.5 mg/dL 1.7-2.2 [place] w low normal [facility] (Osmel Alvarez MD) ID Date Data Source [id number] 04/11/2021 09:38:00 AM EDT [facility] (Osmel Alvarez [...] (Osmel Alvarez MD) ID Date Data Source [id number] 04/11/2021 09:38:00 AM EDT [facility] (Osmel Alvarez [...] (Osmel Alvarez MD) ID Date Data Source [id number] 04/11/2021 10:57:00 AM EDT [facility] Name Value Range Interpretation Code Description Data Maura rce(s) Supporting Document(s) Magnesium [Mass/volume] in Serum or Plasma 1.5 MG/DL 1.7 - 2.2 L [facility] ID Date Data Source [id number] 04/11/2021 10:57:00 AM EDT [facility] Name Value Range Interpretation Code Description Data Maura rce(s) Supporting Document(s) COMPREHENSIVE METABOLIC PANEL [facility] COMPREHENSIVE METABOLIC PANEL Sodium [Moles/volume] in Serum or Plasma 139 mEq/L 134 - 153 [facility] Potassium [Moles/volume] in Serum or Plasma 4.5 mEq/L 3.6 - 5.0 [facility] Chloride [Moles/volume] in Serum or Plasma 98 mEq/L 98 - 107 [facility] Carbon dioxide, total [Moles/volume] in Serum or Plasma 30 MEQ/L 22 - 30 [facility] Glucose [Mass/volume] in Serum or Plasma 133 MG/DL 70 - 99 H [facility] BUN 10 MG/DL 7 - 21 [facility] Creatinine [Mass/volume] in Serum or Plasma 0.8 MG/DL 0.7 - 1.5 [facility] BUN/CREAT 13 8 - 27 [facility] Protein [Mass/volume] in Serum or Plasma 6.0 G/DL 6.3 - 8.2 L [facility] Albumin [Mass/volume] in Serum or Plasma 3.6 G/DL 3.9 - 5.0 L [facility] Globulin [Mass/volume] in Serum by calculation 2.4 GM/DL 2.4 - 3.2 [facility] A/G RATIO 1.5 0.8 - 2.0 [facility] Calcium [Mass/volume] in Serum or Plasma 9.3 MG/DL 8.4 - 10.2 [facility] Bilirubin.total [Mass/volume] in Serum or Plasma <0.7 MG/DL 0.2 - 1.3 [facility] Alkaline phosphatase [Enzymatic activity/volume] in Serum or Plasma 104 U/L 38 - 126 [facility] Aspartate aminotransferase [Enzymatic activity/volume] in Serum or Plasma 20 U/L 5 - 40 [facility] Alanine aminotransferase [Enzymatic activity/volume] in Seru m or Plasma 12 U/L 7 - 56 [facility] Anion gap 3 in Serum or Plasma 11.0 mmol/L 8.0 - 16.0 [facility] AGE 55 yrs [facility] al NON-AA GFR >60 mL/min [facility] ital AFR AMER GFR >60 mL/min [facility] Ho spital Male GFR In terprentation 20-49 [...] >32 mL/min Normal ID Date Data Source [id number] 04/11/2021 10:02:00 AM EDT [facility] Name Value Range Interpretation Code Description Data Maura rce(s) Supporting Document(s) CBC W/AUTOMATED DIFF [facility] COMPLETE BLOOD COUNT Leukocytes [#/volume] in Blood by Automated count 7.2 10^3/uL 4.2 - 1 1.0 [facility] Erythrocytes [#/volume] in Blood by Automated count 3.12 10^6/uL 4. 20 - 5.40 L [facility] Hemoglobin [Mass/volume] in Blood 10.3 g/dL 12.0 - 16.0 L [facility] Hematocrit [Volume Fraction] of Blood by Automated count 31.8 % 3 7.0 - 47.0 L [facility] Erythrocyte mean corpuscular volume [Entitic volume] b y Automated count 101.9 fL 81.0 - 101 H [facility] Erythrocyte mean corpuscular hemoglobin [Entitic mass] by Automated count 33.0 pg 27.0 - 34.0 [facility] Erythrocyte mean corpuscular hemoglobin concentration [Mass/volume] by Automated count 32.4 g/dL 31.0 - 36.0 [facility] Erythrocyte distribution width [Ratio] by Automated count 18.5 % 11.5 - 14.5 H [facility] Platelets [#/volume] in Blood by Automated count 436 10^3/uL 150 - 45 0 [facility] Platelet mean volume [Entitic volume] in Blood by Automated count 8.9 fL 7.4 - 10.4 [facility] Neutrophils/100 leukocytes in Blood by Automated count 78.6 % 37. 0 - 80.0 [facility] Lymphocytes/100 leukocytes in Blood by Manual count 11.4 % 25.0 - 40.0 L [facility] Monocytes/100 leukocytes in Blood by Automated count 8.9 % 3.0 - 8.0 H [facility] Eosinophils/100 leukocytes in Blood by Automated count 0.0 % 0.0 - 7.0 [facility] Basophils/100 leukocytes in Blood by Automated count 0.1 % 0.0 - 2.5 [facility] %IG 1.0 % 0.0 - 0.0 H [facility] %NRBC 0.0 % 0.0 - 0.0 [facility] Neutrophils [#/volume] in Blood by Automated count 5.66 10^3/uL 2.00 - 6.90 [facility] Lymphocytes [#/volume] in Blood by Automated count 0.82 10^3/uL 0.60 - 3.40 [facility] Monocytes [#/volume] in Blood by Automated count 0.64 10^3/uL 0.00 - 0.90 [facility] Eosinophils [#/volume] in Blood by Automated count 0.00 10^3/uL 0.00 - 0.70 [facility] Basophils [#/volume] in Blood by Automated count 0.01 10^3/uL 0.00 - 0.20 [facility] #IG 0.07 10^3/uL 0.00 - 0.10 [facility] #NRBC 0.00 10^3/uL 0.00 - 0.00 [facility] MANUAL DIFF NOT INDICATED [facility] RBC MORPH NOT INDICATED [facility] spital ID Date Data Source [id number] 04/03/2021 01:53:00 [place] [address] RESPIRATORY CARE REPORT ==== ---------NAME------- NUMBER SEX AGE ADMIT DISC. XRAY# F/C CYNDY Daniels [id number] F [id number] 04/01/21 04/01/21 [id number] [facility] E/R DATE OF : 1965 M/R# [id number] PH#: [phone] TR- LOCATION: EMERGENCY DEPT EKG [id number] COMP LETE:04/02/21 01:36 [place] 25754 PHYSICIAN: WYATT Name Value Range Interpretation Code Description Data Maura rce(s) Supporting Document(s) ID Date Data Source [id number] 04/03/2021 01:52:00 [place] [address] RESPIRATORY CARE REPORT ==== ---------NAME------- NUMBER SEX AGE ADMIT DISC. XRAY# F/C CYNDY Daniels [id number] F [id number] 04/01/21 04/01/21 [id number] [facility] E/R DATE OF : 1965 M/R# [id number] PH#: [phone] TR-07 LOCATION: EMERGENCY DEPT EKG [id number] COMP LETE:04/02/21 01:36 [place] 47008 PHYSICIAN: WYATT Name Value Range Interpretation Code Description Data Maura rce(s) Supporting Document(s) ID Date Data Source [id number] 04/03/2021 10:31:00 [place] [address] PHONE: [phone] FAX: [phone] Name .................. : JUANITO KYLEKULDIP Daniels Acct Number.................. : [id number] ROOM. ................. : TR-07 MR Number ................... : [id number] Stay type ............. : E/R Discharge Date......... ... : 04/01/21 Admit Date ......... : 04/01/21 Admit Phys .................... : WYATT Date of ....... : 1965 Family Phys ................... : REGINE GAIL Phone .................. : [phone] Age ................................ : 55 Film# .................. .:[id number] Sex ................................. : F Unsigned transcriptions are preliminary reports and do not represent a medical or legal document CHEST PORTABLE [id number] COMPLETE:04/01/21 18:47 KATINA [id number] Reason(s): palpitations PORTABLE CHEST X-RAY: CLINICAL HISTORY: [...] Date: Copy for: [facility] via [employer] Copy for: 710 MED REC DISCHARGED Page 1 of 1 Name Value Range Interpretation Code Description Data Maura rce(s) Supporting Document(s) ID Date Data Source [id number] 04/01/2021 02:22:00 PM EDT [facility] 1 OrderSheet [facility] Emergency Department [address] [place] [address] Phone #: ext- [phone] 04/01/2021 14:19 Patient: [...] 14:56 Gloria Bolton RN ; 2 OrderSheet [facility] Emergency Department [address] [place] [address] Phone #: ext- [phone] 04/01/2021 14:19 Patient: CHANTALE SOLOMON Sex: F : 1965 Age: 55yCardizem Drip IV : 15:14 04/01/2021 Cancelled: Other 16:55 Yandel Mendes10 mg/hr (Add 125 Gloria Schneider RNmg (25 mL) to 100 ;mL NS to get 125mg/125 mL (1mg/mL))Potassium Chloride 16:12 04/01/2021 16:26 FrancineyLiquid PO 40 meq Gloria Schneider RN(NOW) ;GENERAL ORDERSOrder Description Priority Entered Acknowledged InitialedBlood Pressure 14:04/01/2021 14:32 FrancineyMonitor Gloria Schneider RN ;Grinder Set Up Operator Universal 14:04/01/2021 14:32 Yandel(continuous) Gloria Schneider RN ;EKG [...] RN ;Vitals 14:04/01/2021 14:32 Yandel 3 OrderSheet [facility] Emergency Department [address] [place] [address] Phone #: ext- [phone] 04/01/2021 14:19 Patient: CHANTALE SOLOMON Sex: F : 1965 Age: 55y Gloria Schneider RN ;EKG 16:08 04/01/2021 16:17 Gloria Bolton RN ;[Electronically signed by Yandel Mendes RN (19:31 04/01/2021)][Electronically signed by Gloria Schneider (21:28 04/01/2021)][Electronically locked by Yandel Mendes RN (19:31 04/01/2021)] Name Value Range Interpretation Code Description Data Maura rce(s) Supporting Document(s) ID Date Data Source [id number] 04/01/2021 02:22:00 PM EDT [facility] 1 Medication Reconciliation Report [facility] Emergency Department [address] [place] [address] Phone #: ext- [phone] 04/01/2021 14:19 Patient: [...] administered: 14:46 04/01/2021 2 Medication Reconciliation Report [facility] Emergency Department [address] [place] [address] Phone #: ext- [phone] 04/01/2021 14:19 Patient: CHANTALE SOLOMON Sex: F : 1965 Age: 55yPOTASSIUM CHLORIDE LIQUID PO PO 40 meq, administered: 16:26 04/01/2021The following Medications were prescribed to the patient:None. Name Value Range Interpretation Code Description Data Maura rce(s) Supporting Document(s) ID Date Data Source [id number] 04/01/2021 02:22:00 PM EDT [facility] 1 Medication Administration Record [facility] Emergency Department [address] [place] [address] Phone #: ext- [phone] 04/01/2021 14:19 Patient: [...] Code Description Data Marua rce(s) Supporting Document(s) ID Date Data Source [id number] 04/01/2021 02:22:00 PM EDT [facility] 1 General Instructions [facility] Emergency Department [address] [place] [address] Phone #: ext- [phone] 04/01/2021 14:19 Patient: CHANTALE SOLOMON Sex: F [...] paper. ADDITIONAL INFORMATIONAbout Arrhythmias 2 General Instructions [facility] Emergency Department [address] [place] [address] Phone #: ext- [phone] 04/01/2021 14:19 Patient: [...] Chest pain or pressure 3 General Instructions [facility] Emergency Department [address] [place] [address] Phone #: ext- [phone] 04/01/2021 14:19 Patient: [...] Obesity Congenital heart disease 4 General Instructions [facility] Emergency Department [address] [place] [address] Phone #: ext- [phone] 04/01/2021 14:19 Patient: [...] help. Tell your doctor about any prescription, [id number], or herbal medicines you take. These may be affecting your heart rhythm.Follow-up careFollow up with your healthcare provider, or as advised. If a Holter monitor has been recommended,contact the heel shaver you have been referred to as soon as you can chart picker the device. Otheroutpatient tests may also [...] lightheaded, faint, or dizzy 5 General Instructions [facility] Emergency Department [address] [place] [address] Phone #: ext- [phone] 04/01/2021 14:19 Patient: [...] getting help while trying to find them. [employer]. [address] [place] [address]. All rights reserved. This information is not intended as asubstitute for professional medical care. Always follow your healthcare professional's instructions.Atrial Fibrillation 6 General Instructions [facility] Emergency Department [address] [place] [address] Phone #: ext- [phone] 04/01/2021 14:19 Patient: [...] a couple ofdays. Or it may become intermediate designer (chronic), lasting for months at a time [...] heart valves Enlarged heart 7 General Instructions [facility] Emergency Department [address] [place] [address] Phone #: ext- [phone] 04/01/2021 14:19 Patient: [...] work as they should. 8 General Instructions [facility] Emergency Department [address] [place] [address] Phone #: ext- [phone] 04/01/2021 14:19 Patient: CHANTALE SOLOMON Sex: F [...] vision Extreme drowsiness, confusion, dizziness, or fainting [employer] [address] [place] [address], [place] [address]. All rights reserved. This information is not intended as asubstitute for professional medical care. Always follow your healthcare professional's instructions.Hypokalemia 9 General Instructions [facility] Emergency Department [address] [place] [address] Phone #: ext- [phone] 04/01/2021 14:19 Patient: [...] very fast heart rate Loss of consciousness [id number] [employer] [address] [place] [address]. All rights reserved. This information is not intended as asubstitute for professional medical care. Always follow your healthcare professional's instructions. 10 General Instructions [facility] Emergency Department [address] [place] [address] Phone #: ext- [phone] 04/01/2021 14:19 Patient: CHANTALE SOLOMON Sex: F : 1965 Age: 55yYou have been given the following additional information:About ArrhythmiasAtrial FibrillationHypokalemia(Electronically signed by Golria Schneider 04/01/2021 21:28) Name Value Range Interpretation Code Description Data Maura rce(s) Supporting Document(s) ID Date Data Source [id number] 04/01/2021 02:22:00 PM EDT [facility] 1 Clinical Report - Nurses [facility] Emergency Department [address] [place] [address] Phone #: ext- [phone] 04/01/2021 14:19 Patient: CHANTALE SOLOMON Sex: F : 1965 Age: 55yTRIAGEArrived by private vehicle. Historian: patient. Accompanied by spouse.Triage time: 14:20 04/01/2021. Acuity: LEVEL 3.Chief Complaint: (HEART RACING).Alert. No acute distress.Onset. (30 minutes ago).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SEPSIS SCREEN: SIRS SCREEN NEGATIVE: heart rate greater [...] Venous Thrombosis. 2 Clinical Report - Nurses [facility] Emergency Department [address] [place] [address] Phone #: ext- [phone] 04/01/2021 14:19 Patient: CHANTALE SOLOMON Sex: F [...] no barriers. 3 Clinical Report - Nurses [facility] Emergency Department [address] [place] [address] Phone #: ext- [phone] 04/01/2021 14:19 [id number] Sex[facility] F : 1965 Age: 55y SKIN [...] on patient. --14:57 04/01/21 Yandel Mendes RN.PHYSICAL [id number] 04/01/21. Ambulatory to room.GENERAL / NEURO / [...] administered by nasal cannula at 2 liters. telemetry monitor, NIBP monitor and pulse oximeter placed [...] #1. Allergies 4 Clinical Report - Nurses [facility] Emergency Department [address] [place] [address] Phone #: ext- [phone] 04/01/2021 14:19 Patient: CHANTALE SOLOMON Sex: F : 1965 Age: 55y verified and confirmed 5 rights. IV patency established. IVP given by RN. Information reviewed with patient. --14:56 04/01/21 Yandel Mendes RN Checked patient name and birthdate: patient confirmed. Blood samples drawn by tech. ([id number]). Portable chest x-ray completed. Shown to the ED physician ([id number]). --14:58 04/01/21 Yandel Mendes RN 15:36 04/01/21. [...] Mendes RN ( 1625 pt OOB to BS [...] medication(s) (no changes). Reviewed referral to a heel shaver. Patient and spouse verbalized understanding. Written instructions provided in Cymro. The patient was discharged by the physician. She was discharged 5 Clinical Report - Nurses [facility] Emergency Department [address] [place] [address] Phone #: ext- [phone] 04/01/2021 14:19 Patient: [...] rce(s) Supporting Document(s) ID Date Data Source [id number] 04/01/2021 02:22:00 PM EDT [facility] 1 Clinical Report - Physicians/Mid Levels [facility] Emergency Department [address] [place] [address] Phone #: ext- [phone] 04/01/2021 14:19 Patient: CHANTALE SOLOMON Sex: F [...] has had chest discomfort and dizziness. Treatment LAUNDRY OR DRY CLEANERS COUNTER CLERK: (none). Similar symptoms previously. Patient has had [...] t8) 2 Clinical Report - Physicians/Mid Levels [facility] Emergency Department [address] [place] [address] Phone #: ext- [phone] 04/01/2021 14:19 [id number] Sex: F : 1965 Age: 55y Dilatation [...] turgor. 3 Clinical Report - Physicians/Mid Levels [facility] Emergency Department [address] [place] [address] Phone #: ext- [phone] 04/01/2021 14:19 Patient: CHANTALE SOLOMON Sex: F : 1965 Age: 55y Extremities: Extremities exhibit normal ROM. No lower extremity edema. Neuro: Oriented X 3. No motor deficit. No sensory deficit.LABS, X-RAYS, AND EKGEKG: EKG time: 14:24 04/01/2021. Irregularly irregular narrow- complex tachycardia (ventricular [id number]). Atrial fibrillation. Normal QRS complex. Non-specific ST [...] (Reference) 4 Clinical Report - Physicians/Mid Levels [facility] Emergency Department [address] [place] [address] Phone #: ext- [phone] 04/01/2021 14:19 Patient: [...] Thrombosis, Pulmonary Embolus, Tissue heart valves, Acute SD Atrial Fibrillation, Valvular heart disease and recurrent Systemic Embolism. -International Normalized Ratio (INR): 2.5 - 3.5 for Mechanical Prosthetic valve. Troponin-T: (SARAH: 04/01/2021 14:37) ( MsgRcvd 04/01/2021 15:44) Final results Test Result Flag Units (Reference) TROPONIN T <0.01 NG/ML (0.00 - 0.10) TROPONIN T0.1 ng/ml Recommended as the clinical threshold value Kathie Maxwell.PROGRESS AND PROCEDURES 5 Clinical Report - Physicians/Mid Levels [facility] Emergency Department [address] [place] [address] Phone #: ext- [phone] 04/01/2021 14:19 Patient: [...] daily. 6 Clinical Report - Physicians/Mid Levels [facility] Emergency Department [address] [place] [address] Phone #: ext- [phone] 04/01/2021 14:19 Patient: CHANTALE SOLOMON Sex: F : 1965 Age: 55y Follow-up: Follow up with your healthcare provider in two days. Reason for referral: evaluation. Summary of care provided to patient via paper.(Electronically signed by Gloria Schneider 04/01/2021 21:28) Name Value Range Interpretation Code Description Data Maura rce(s) Supporting Document(s) ID Date Data Source [id number] 04/01/2021 03:59:00 PM EDT [facility] Name Value Range Interpretation Code Description Data Maura rce(s) Supporting Document(s) Lipase [Enzymatic activity/volume] in Serum or Plasma 23 U/L 13 - 60 [facility] ID Date Data Source [id number] 04/01/2021 03:59:00 PM EDT [facility] Name Value Range Interpretation Code Description Data Maura rce(s) Supporting Document(s) COMPREHENSIVE METABOLIC PANEL [facility] COMPREHENSIVE METABOLIC PANEL Sodium [Moles/volume] in Serum or Plasma 132 mEq/L 134 - 153 L [facility] Potassium [Moles/volume] in Serum or Plasma 3.2 mEq/L 3.6 - 5.0 L [facility] Chloride [Moles/volume] in Serum or Plasma 92 mEq/L 98 - 107 L [facility] Carbon dioxide, total [Moles/volume] in Serum or Plasma 29 MEQ/L 22 - 30 [facility] Glucose [Mass/volume] in Serum or Plasma 117 MG/DL 70 - 99 H [facility] BUN 8 MG/DL 7 - 21 [facility] al Creatinine [Mass/volume] in Serum or Plasma 0.9 MG/DL 0.7 - 1.5 [facility] BUN/CREAT 9 8 - 27 [facility] Protein [Mass/volume] in Serum or Plasma 6.2 G/DL 6.3 - 8.2 L [facility] Albumin [Mass/volume] in Serum or Plasma 3.5 G/DL 3.9 - 5.0 L [facility] Globulin [Mass/volume] in Serum by calculation 2.7 GM/DL 2.4 - 3.2 [facility] A/G RATIO 1.3 0.8 - 2.0 [facility] Calcium [Mass/volume] in Serum or Plasma 8.4 MG/DL 8.4 - 10.2 [facility] Bilirubin.total [Mass/volume] in Serum or Plasma <0.7 MG/DL 0.2 - 1.3 [facility] Alkaline phosphatase [Enzymatic activity/volume] in Serum or Plasma 137 U/L 38 - 126 H [facility] Aspartate aminotransferase [Enzymatic activity/volume] in Serum or Plasma 53 U/L 5 - 40 H [facility] Alanine aminotransferase [Enzymatic activity/volume] in Seru m or Plasma 33 U/L 7 - 56 [facility] Anion gap 3 in Serum or Plasma 11.0 mmol/L 8.0 - 16.0 [facility] AGE 55 yrs [facility] NON-AA GFR >60 mL/min [facility] ital AFR AMER GFR >60 mL/min [facility] sp[facility] Male GFR In terprentation 20-49 [...] >32 mL/min Normal ID Date Data Source [id number] 04/01/2021 03:44:00 PM EDT [facility] Name Value Range Interpretation Code Description Data Maura rce(s) Supporting Document(s) TROPONIN T <0.01 NG/ML 0.00 - 0.10 [facility] ospital TROPONIN T0.1 ng/ml Recommended as the c linical threshold value forTroponin T. ID Date Data Source [id number] 04/01/2021 03:40:00 PM [facility] Name Value Range Interpretation Code Description Data Maura rce(s) Supporting Document(s) CBC W/AUTOMATED DIFF [facility] COMPLETE BLOOD COUNT Leukocytes [#/volume] in Blood by Automated count 3.9 10^3/uL 4.2 - 1 1.0 L [facility] Erythrocytes [#/volume] in Blood by Automated count 3.11 10^6/uL 4. 20 - 5.40 L [facility] Hemoglobin [Mass/volume] in Blood 10.2 g/dL 12.0 - 16.0 L [facility] Hematocrit [Volume Fraction] of Blood by Automated count 30.8 % 3 7.0 - 47.0 L [facility] Erythrocyte mean corpuscular volume [Entitic volume] by Auto mated count 99.0 fL 81.0 - 101 [facility] Erythrocyte mean corpuscular hemoglobin [Entitic mass] by Automated count 32.8 pg 27.0 - 34.0 [facility] Erythrocyte mean corpuscular hemoglobin concentration [Mass/volume] by Automated count 33.1 g/dL 31.0 - 36.0 [facility] Erythrocyte distribution width [Ratio] by Automated count 15.9 % 11.5 - 14.5 H [facility] Platelets [#/volume] in Blood by Automated count 130 10^3/uL 150 - 45 0 L [facility] Platelet mean volume [Entitic volume] in Blood by Automated count 9.9 fL 7.4 - 10.4 [facility] Neutrophils/100 leukocytes in Blood by Automated count 43.4 % 37. 0 - 80.0 [facility] Lymphocytes/100 leukocytes in Blood by Manual count 18.4 % 25.0 - 40.0 L [facility] Monocytes/100 leukocytes in Blood by Automated count 35.1 % 3.0 - 8.0 H [facility] Eosinophils/100 leukocytes in Blood by Automated count 1.8 % 0.0 - 7.0 [facility] 0.3 %IG 1.0 % 0.0 - 0.0 [facility] 0.0 % 0.0 - 0.0 [facility] Neutrophils [#/volume] in Blood by Automated count 1.67 10^3/uL 2.00 - 6.90 L [facility] Lymphocytes [#/volume] in Blood by Automated count 0.71 10^3/uL 0.60 - 3.40 [facility] Monocytes [#/volume] in Blood by Automated count 1.35 10^3/uL 0.00 - 0.90 H [facility] Eosinophils [#/volume] in Blood by Automated count 0.07 10^3/uL 0.00 - 0.70 [facility] Basophils [#/volume] in Blood by Automated count 0.01 10^3/uL 0.00 - 0.20 [facility] #IG 0.04 10^3/uL 0.00 - 0.10 [facility] #NRBC 0.00 10^3/uL 0.00 - 0.00 [facility] MANUAL DIFF SEE BELOW [facility] ital Segmented neutrophils/100 leukocytes in Blood by Manual count 42 % 37 - 80 [facility] %LYMPH 19 % 25 - 40 L [facility] %MONO 36 % 3 - 8 H [facility] %EOS 2 % 0 - 7 [facility] 1 RBC MORPH NOT INDICATED [facility] ID Date Data Source [id number] 04/01/2021 03:11:00 PM EDT [facility] Name Value Range Interpretation Code Description Data Maura rce(s) Supporting Document(s) Prothrombin time (PT) 23.5 SECONDS 11.0 - 15.5 H [facility] INR in Platelet poor plasma by Coagulation assay 2.06 0.93 - 1. 23 H [facility] aPTT in Blood by Coagulation assay 54.3 SECONDS 24.8 - 36.7 H [facility] \\BLDo\\INR INTERPRETATION\\BLDx\\ Therapeutic range for Coumadin and related oral anticoagulants. - International Normalized Ratio (INR): 2.0 - 3.0 for Venous Thrombosis, Pulmonary Embolus, Tissue heart valves, Acute SD Atrial Fibrillation, Valvular heart disease and recurrent Systemic Embolism. - International Normalized Ratio (INR): 2.5 - 3.5 for Mechanical Prosthetic valve. ID Date Data Source [id number] 03/26/2021 02:11:00 PM EDT [facility] ([facility], ) Name Value Range Interpretation Code Description Data Maura rce(s) Supporting Document(s) Sputum Culture Laboratory test result Normal (applies to non-numeric results) [facility] ([facility], ) FULL REPORT IN LAB NOTES ([facility] NORMAL JEROME PRESENT ORGANISM 1: MOLD LIKE ORGANISM QUANTITY OF GROWTH FEW ORGANISM 1: MOLD LIKE ORGANISM Gram Stain Laboratory test result Normal (applies to non-n umeric results) [facility] ([facility], ) QUALITY: GOOD MANY WBCS FEW EPITHELIAL CELLS MANY GRAM POSITIVE COCCI IN PAIRS, CHAINS AND CLUSTERS MODERATE GRAM POSITIVE RODS ID Date Data Source [id number] 03/21/2021 08:20:00 AM EDT [facility] (Osmel Alvarez MD) Name Value Range Interpretation Code Description Data Maura rce(s) Supporting Document(s) Magnesium [Mass/volume] in Serum or Plasma 1.3 mg/dL 1.7-2.2 [place] w low normal [facility] (Osmel Alvarez MD) ID Date Data Source [id number] 03/21/2021 08:20:00 AM EDT [facility] (Osmel Alvarez [...] >32 mL/min Normal ID Date Data Source [id number] 03/21/2021 08:20:00 AM EDT [facility] (Osmel Alvarez [...] (Osmel Alvarez MD) ID Date Data Source [id number] 03/21/2021 09:17:00 AM EDT [facility] Name Value Range Interpretation Code Description Data Maura rce(s) Supporting Document(s) Magnesium [Mass/volume] in Serum or Plasma 1.3 MG/DL 1.7 - 2.2 L [facility] ID Date Data Source [id number] 03/21/2021 09:16:00 AM EDT [facility] Name Value Range Interpretation Code Description Data Maura rce(s) Supporting Document(s) COMPREHENSIVE METABOLIC PANEL [facility] COMPREHENSIVE METABOLIC PANEL Sodium [Moles/volume] in Serum or Plasma 139 mEq/L 134 - 153 [facility] Potassium [Moles/volume] in Serum or Plasma 4.1 mEq/L 3.6 - 5.0 [facility] Chloride [Moles/volume] in Serum or Plasma 98 mEq/L 98 - 107 [facility] Carbon dioxide, total [Moles/volume] in Serum or Plasma 31 MEQ/L 22 - 30 H [facility] Glucose [Mass/volume] in Serum or Plasma 116 MG/DL 70 - 99 H [facility] BUN 5 MG/DL 7 - 21 L [facility] Creatinine [Mass/volume] in Serum or Plasma 0.9 MG/DL 0.7 - 1.5 [facility] BUN/CREAT 6 8 - 27 L [facility] Protein [Mass/volume] in Serum or Plasma 5.9 G/DL 6.3 - 8.2 L [facility] Albumin [Mass/volume] in Serum or Plasma 3.5 G/DL 3.9 - 5.0 L [facility] Globulin [Mass/volume] in Serum by calculation 2.4 GM/DL 2.4 - 3.2 [facility] A/G RATIO 1.5 0.8 - 2.0 [facility] Calcium [Mass/volume] in Serum or Plasma 9.2 MG/DL 8.4 - 10.2 [facility] Bilirubin.total [Mass/volume] in Serum or Plasma <0.7 MG/DL 0.2 - 1.3 [facility] Alkaline phosphatase [Enzymatic activity/volume] in Serum or Plasma 87 U/L 38 - 126 [facility] Aspartate aminotransferase [Enzymatic activity/volume] in Serum or Plasma 18 U/L 5 - 40 [facility] Alanine aminotransferase [Enzymatic activity/volume] in Seru m or Plasma 7 U/L 7 - 56 [facility] Anion gap 3 in Serum or Plasma 10.0 mmol/L 8.0 - 16.0 [facility] AGE 55 yrs [facility] al NON-AA GFR >60 mL/min [facility] ital AFR AMER GFR >60 mL/min [facility] Ho sp[facility] Male GFR In terprentation 20-49 [...] >32 mL/min Normal ID Date Data Source [id number] 03/21/2021 08:49:00 AM EDT [facility] Name Value Range Interpretation Code Description Data Maura rce(s) Supporting Document(s) CBC W/AUTOMATED DIFF [facility] COMPLETE BLOOD COUNT Leukocytes [#/volume] in Blood by Automated count 7.6 10^3/uL 4.2 - 1 1.0 [facility] Erythrocytes [#/volume] in Blood by Automated count 3.24 10^6/uL 4. 20 - 5.40 L [facility] Hemoglobin [Mass/volume] in Blood 10.9 g/dL 12.0 - 16.0 L [facility] Hematocrit [Volume Fraction] of Blood by Automated count 33.4 % 3 7.0 - 47.0 L [facility] Erythrocyte mean corpuscular volume [Entitic volume] b y Automated count 103.1 fL 81.0 - 101 H [facility] Erythrocyte mean corpuscular hemoglobin [Entitic mass] by Automated count 33.6 pg 27.0 - 34.0 [facility] Erythrocyte mean corpuscular hemoglobin concentration [Mass/volume] by Automated count 32.6 g/dL 31.0 - 36.0 [facility] Erythrocyte distribution width [Ratio] by Automated count 17.2 % 11.5 - 14.5 H [facility] Platelets [#/volume] in Blood by Automated count 351 10^3/uL 150 - 45 0 [facility] Platelet mean volume [Entitic volume] in Blood by Automated count 8.8 fL 7.4 - 10.4 [facility] Neutrophils/100 leukocytes in Blood by Automated count 70.9 % 37. 0 - 80.0 [facility] Lymphocytes/100 leukocytes in Blood by Manual count 12.5 % 25.0 - 40.0 L [facility] Monocytes/100 leukocytes in Blood by Automated count 12.8 % 3.0 - 8.0 H [facility] Eosinophils/100 leukocytes in Blood by Automated count 2.2 % 0.0 - 7.0 [facility] Basophils/100 leukocytes in Blood by Automated count 1.1 % 0.0 - 2.5 [facility] %IG 0.5 % 0.0 - 0.0 [facility] %NRBC 0.0 % 0.0 - 0.0 [facility] al Neutrophils [#/volume] in Blood by Automated count 5.39 10^3/uL 2.00 - 6.90 [facility] Lymphocytes [#/volume] in Blood by Automated count 0.95 10^3/uL 0.60 - 3.40 [facility] Monocytes [#/volume] in Blood by Automated count 0.97 10^3/uL 0.00 - 0.90 H [facility] Eosinophils [#/volume] in Blood by Automated count 0.17 10^3/uL 0.00 - 0.70 [facility] Basophils [#/volume] in Blood by Automated count 0.08 10^3/uL 0.00 - 0.20 [facility] #IG 0.04 10^3/uL 0.00 - 0.10 [facility] #NRBC 0.00 10^3/uL 0.00 - 0.00 [facility] MANUAL DIFF NOT INDICATED [facility] RBC MORPH NOT INDICATED [facility] ID Date Data Source [id number] 03/16/2021 07:55:00 AM EDT [facility] (Osmel Alvarez [...] NONE SEEN ) ID Date Data Source [id number] 03/16/2021 07:55:00 AM EDT [facility] (Osmel Alvarez [...] (Osmel Alvarez MD) ID Date Data Source [id number] 03/16/2021 07:55:00 AM EDT [facility] (Osmel Alvarez [...] (Osmel Alvarez MD) ID Date Data Source [id number] 03/16/2021 07:55:00 AM EDT [facility] (Osmel Alvarez MD) Name Value Range Interpretation Code Description Data Maura rce(s) Supporting Document(s) Cobalamin (Vitamin B12) [Mass/volume] in Serum or Plasma 573 pg/mL 2 32-1245 [facility] (Osmel Alvarez MD) ID Date Data Source [id number] 03/16/2021 07:55:00 AM EDT [facility] (Osmel Alvarez [...] >32 mL/min Normal ID Date Data Source [id number] 03/16/2021 10:06:00 AM EDT [facility] Name Value Range Interpretation Code Description Data Maura rce(s) Supporting Document(s) Cobalamin (Vitamin B12) [Mass/volume] in Serum or Plasma 573 PG/ML 232 - 1245 [facility] ID Date Data Source [id number] 03/16/2021 08:37:00 AM EDT [facility] Name Value Range Interpretation Code Description Data Maura rce(s) Supporting Document(s) Magnesium [Mass/volume] in Serum or Plasma 0.9 MG/DL 1.7 - 2.2 LL [facility] CALL/ READ BACK KIM MATA RN [facility] BY: DESIRAE [facility] DATE/TIME 03.16.21904 [facility] ID Date Data Source [id number] 03/16/2021 08:57:00 AM EDT [facility] Name Value Range Interpretation Code Description Data Maura rce(s) Supporting Document(s) Thyrotropin [Units/volume] in Serum or Plasma by Detec tion limit <= 0.05 mIU/L 1.34 uIU/mL 0.47 - 5.01 [facility] ID Date Data Source [id number] 03/16/2021 08:57:00 AM EDT [facility] Name Value Range Interpretation Code Description Data Maura rce(s) Supporting Document(s) Thyroxine (T4) free index in Serum or Plasma by calculation 1.54 NG/DL 0.93 - 1.70 [facility] ID Date Data Source [id number] 03/16/2021 08:37:00 AM EDT [facility] Name Value Range Interpretation Code Description Data Maura rce(s) Supporting Document(s) Iron [Mass/volume] in Serum or Plasma 46 UG/DL 42 - 135 [facility] ID Date Data Source [id number] 03/16/2021 08:37:00 AM EDT [facility] Value Range Interpretation Code Description Data Maura rce(s) Supporting Document(s) COMPREHENSIVE METABOLIC PANEL [facility] COMPREHENSIVE METABOLIC PANEL Sodium [Moles/volume] in Serum or Plasma 139 mEq/L 134 - 153 [facility] Potassium [Moles/volume] in Serum or Plasma 3.3 mEq/L 3.6 - 5.0 L [facility] Chloride [Moles/volume] in Serum or Plasma 93 mEq/L 98 - 107 L [facility] Carbon dioxide, total [Moles/volume] in Serum or Plasma 33 MEQ/L 22 - 30 H [facility] Glucose [Mass/volume] in Serum or Plasma 117 MG/DL 70 - 99 H [facility] BUN 6 MG/DL 7 - 21 L [facility] Creatinine [Mass/volume] in Serum or Plasma 0.8 MG/DL 0.7 - 1.5 [facility] BUN/CREAT 8 8 - 27 [facility] Protein [Mass/volume] in Serum or Plasma 6.0 G/DL 6.3 - 8.2 L [facility] Albumin [Mass/volume] in Serum or Plasma 3.7 G/DL 3.9 - 5.0 L [facility] Globulin [Mass/volume] in Serum by calculation 2.3 GM/DL 2.4 - 3.2 L [facility] A/G RATIO 1.6 0.8 - 2.0 [facility] Calcium [Mass/volume] in Serum or Plasma 7.9 MG/DL 8.4 - 10.2 L [facility] Bilirubin.total [Mass/volume] in Serum or Plasma <0.7 MG/DL 0.2 - 1.3 [facility] Alkaline phosphatase [Enzymatic activity/volume] in Serum or Plasma 91 U/L 38 - 126 [facility] Aspartate aminotransferase [Enzymatic activity/volume] in Serum or Plasma 20 U/L 5 - 40 [facility] Alanine aminotransferase [Enzymatic activity/volume] in Seru m or Plasma 9 U/L 7 - 56 [facility] Anion gap 3 in Serum or Plasma 13.0 mmol/L 8.0 - 16.0 [facility] AGE 55 yrs [facility] NON-AA GFR >60 mL/min [facility] ital AFR AMER GFR >60 mL/min [facility] Male GFR In terprentation 20-49 [...] >32 mL/min Normal ID Date Data Source [id number] 03/16/2021 08:31:00 AM EDT [facility] Name Value Range Interpretation Code Description Data Maura rce(s) Supporting Document(s) CBC W/AUTOMATED DIFF [facility] COMPLETE BLOOD COUNT Leukocytes [#/volume] in Blood by Automated count 9.2 10^3/uL 4.2 - 1 1.0 [facility] Erythrocytes [#/volume] in Blood by Automated count 3.26 10^6/uL 4. 20 - 5.40 L [facility] Hemoglobin [Mass/volume] in Blood 11.0 g/dL 12.0 - 16.0 L [facility] Hematocrit [Volume Fraction] of Blood by Automated count 33.0 % 3 7.0 - 47.0 L [facility] Erythrocyte mean corpuscular volume [Entitic volume] b y Automated count 101.2 fL 81.0 - 101 H [facility] Erythrocyte mean corpuscular hemoglobin [Entitic mass] by Automated count 33.7 pg 27.0 - 34.0 [facility] Erythrocyte mean corpuscular hemoglobin concentration [Mass/volume] by Automated count 33.3 g/dL 31.0 - 36.0 [facility] Erythrocyte distribution width [Ratio] by Automated count 17.4 % 11.5 - 14.5 H [facility] Platelets [#/volume] in Blood by Automated count 333 10^3/uL 150 - 45 0 [facility] Platelet mean volume [Entitic volume] in Blood by Automated count 9.0 fL 7.4 - 10.4 [facility] Neutrophils/100 leukocytes in Blood by Automated count 75.4 % 37. 0 - 80.0 [facility] Lymphocytes/100 leukocytes in Blood by Manual count 9.7 % 25.0 - 40.0 L [facility] Monocytes/100 leukocytes in Blood by Automated count 13.2 % 3.0 - 8.0 H [facility] Eosinophils/100 leukocytes in Blood by Automated count 0.8 % 0.0 - 7.0 [facility] Basophils/100 leukocytes in Blood by Automated count 0.5 % 0.0 - 2.5 [facility] %IG 0.4 % 0.0 - 0.0 H [facility] %NRBC 0.0 % 0.0 - 0.0 [facility] Neutrophils [#/volume] in Blood by Automated count 6.94 10^3/uL 2.00 - 6.90 H [facility] Lymphocytes [#/volume] in Blood by Automated count 0.89 10^3/uL 0.60 - 3.40 [facility] Monocytes [#/volume] in Blood by Automated count 1.21 10^3/uL 0.00 - 0.90 H [facility] Eosinophils [#/volume] in Blood by Automated count 0.07 10^3/uL 0.00 - 0.70 [facility] Basophils [#/volume] in Blood by Automated count 0.05 10^3/uL 0.00 - 0.20 [facility] #IG 0.04 10^3/uL 0.00 - 0.10 [facility] #NRBC 0.00 10^3/uL 0.00 - 0.00 [facility] ospital MANUAL DIFF SEE BELOW [facility] ital Segmented neutrophils/100 leukocytes in Blood by Manual count 81 % 37 - 80 H [facility] %LYMPH 4 % 25 - 40 L [facility] %MONO 14 % 3 - 8 H [facility] %EOS 1 % 0 - 7 [facility] RBC MORPH [facility] Anisocytosis [Presence] in Blood by Light microscopy 1+ SHAUNA L: NONE SEEN A [facility] HYPO 1+ NORMAL: NONE SEEN A [facility] { SICKLE CELL (NORMAL: NONE SEEN ) Stomatocytes [Presence] in Blood by Light microscopy 1+ SHAUNA L: NONE SEEN A [facility] COMMENT: ID Date Data Source [id number] 03/14/2021 10:37:00 AM EDT [facility] [address] [place] [address] PHONE: [phone] FAX: [phone] Name .................. : JUANITO Daniels Acct Number.................. : [id number] ROOM. ................. : Number ................... : [id number] Stay type ............. : O/P Discharge Date......... ... : 03/13/21 Admit Date ......... : 03/13/21 Admit Phys .................... : KIM VANESSA Date of ....... : 1965 Family Phys ................... : SEQUEIRA Phone .................. : [phone] Age ................................ : 55 Film# .................. .:[id number] Sex ................................. : F Unsigned transcriptions are preliminary reports and do not represent a medical or legal document CT THORAX W/O CONTRAST [id number] COMPLETE:03/13/21 10:32 [facility] [address] Reason for Exam: COPD CT OF THE [...] imperative reconstructive techniques. Page 1 of 2 [facility] [address] [place] [address] PHONE: [phone] FAX: [phone] Name .................. : JUANITO Daniels Acct Number.................. : [id number] ROOM. ................. : MR Number ................... : [id number] Stay type ............. : O/P Discharge Date......... ... : 03/13/21 Admit Date ......... : 03/13/21 Admit Phys .................... : KIM MENDEZ Date of ....... : 1965 Family Phys ................... : REGINE GAIL Phone .................. : [phone] Age ................................ : 55 Film# .................. .:[id number] Sex ................................. : F Unsigned transcriptions are preliminary reports and do not represent a medical or legal document CT THORAX W/O CONTRAST [id number] COMPLETE:03/13/21 10:32 [facility] [address] Reason for Exam: COPD CT dose: 523 mGycm Electronically Reviewed and Signed By Elier Rodríguez MD , 03/14/21 10:37, AML Transcribe Initials: DZ , Transcribe Date: 03/13/21 20:44, Dictation Date: Copy for: KIM ESTEVES via modem Copy for: 710 MED REC Page 2 of 2 Name Value Range Interpretation Code Description Data Maura rce(s) Supporting Document(s) ID Date Data Source [id number] 03/08/2021 11:36:00 AM EDT [facility] (Osmel Alvarez MD) Name Value Range Interpretation Code Description Data Maura rce(s) Supporting Document(s) Laboratory test finding (navigational concept) Laboratory test result [facility] (Osmel Alvarez MD) _CULTURE URINE_ ^$[id number] ^^[id number] $$399310 ^^888940 $$944245 $$774059 $$944900 $$717026 $$488280 $$944594 $$778864 $$656745 $$602540 $$839819 $$722022 $$397367 $$759275 $$214013 $$194238 $$696595 $$767213 $$426565 $$002574 $$370370 $$505094 $$948652 $$094541 ^^022979 $$962684 $$474289 $$745234 -- Continued on next page -- Patient: JUANITO Daniels Order: [id number] Page 2 Culture: CULTURE URINE Status: Final -- Continued on next page -- Patient: JUANITO Daniels Order: [id number] Page 2 Culture: CULTURE URINE Status: Prelim $$[id number] $$[id number] REPORTED DATE/TIME: 03/13/2021 07:06 Culture: CULTURE URINE Status: Final Urine Culture,Comprehensive: P1 No growth in 36 - 48 hours. Previous result entered on 03/10/2021 23:58 ET No growth after 18-24 hours. P1 Test performed by: [facility] DAMON #: [id number] [address] [place] [address] [id number] [facility] [address] Torch Shearer : Yonas Rascon MD NPI #: [employer] : 03/12/[email or web address].SENT REF 03/13/21.0736.XMT.SENT REF ID Date Data Source [id number] 03/08/2021 11:36:00 AM EDT [facility] (Osmel Alvarez MD) Name Value Range Interpretation Code Description Data Maura rce(s) Supporting Document(s) Magnesium [Mass/volume] in Serum or Plasma 1.0 mg/dL 1.7-2.2 Belo w low normal [facility] (Osmel Alvarez MD) ID Date Data Source [id number] 03/08/2021 11:36:00 AM EDT [facility] (Osmel Alvarez [...] (Osmel Alvarez MD) ID Date Data Source [id number] 03/08/2021 11:36:00 AM EDT [facility] (Osmel Alvarez MD) Name Value Range Interpretation Code Description Data Maura rce(s) Supporting Document(s) Cobalamin (Vitamin B12) [Mass/volume] in Serum or Plasma 527 pg/mL 2 32-1245 [facility] (Osmel Alvarez MD) ID Date Data Source [id number] 03/08/2021 11:36:00 AM EDT [facility] (Osmel Alvarez [...] >32 mL/min Normal ID Date Data Source [id number] 03/08/2021 11:36:00 AM EDT [facility] (Osmel Alvarez MD) Name Value Range Interpretation Code Description Data Maura rce(s) Supporting Document(s) Iron [Mass/volume] in Serum or Plasma 41 ug/dL 42-135 Below low normal [facility] (Osmel Alvarez MD) Hemoglobin A1c/Hemoglobin.total in Blood 4.8 % 4.4-6.1 [facility] (Osmel Alvarez MD) {A1] {HB] ID Date Data Source [id number] 03/08/2021 11:36:00 AM EDT [facility] (Osmel Alvarez MD) Name Value Range Interpretation Code Description Data Maura rce(s) Supporting Document(s) Laboratory test finding (navigational concept) 8.6 10^3/uL 4.2-11.0 [facility] (Osmel Alvarez MD) Laboratory test finding (navigational concept) Laboratory test result [facility] (Osmel Alvraez MD) COMPLETE BLOOD COUNT Laboratory test finding [...] Alvarez MD) COMMENT: ID Date Data Source [id number] 03/13/2021 07:36:00 AM EDT [facility] Name Value Range Interpretation Code Description Data Maura rce(s) Supporting Document(s) CULTURE URINE [facility] _CULTURE URINE_$$[id number]$$588472$$985223$$597363$$041575$$395553$$535804$$755837$$699035$$ 611723$$793721$$934979$$555825$$115637$$760730$$627134$$385894$$669769$$879236$$ 406474$$291221$$418095$$611577$$288334$$057330$$332283$$385810 -- Continued on next page --Patient: JUANITO ROMAN Jeremiah Order: [id number] Page 2Culture: CULTURE URINE Status: Final ==== -- Continued on next page --Patient: JUANITO ROMAN Jeremiah Order: [id number] Page 2Culture: CULTURE URINE Status: Prelim =====$$[id number]$$[id number] DATE/TIME: 03/13/2021 07:06Culture: CULTURE URINE Status: FinalUrine Culture,Comprehensive: P1No growth in 36 - 48 hours. Previous result entered on 03/10/2021 23:58 ET No growth after 18-24 hours.P1 [facility]: [id number] [address] [id number] [facility] [address]Cg[employer]rii Director : Yonas Rascon MD NPI #:[employer] : 03/12/21.0627.XMT.SENT REF 03/13/21.0736.XMT.SENT REF ID Date Data Source [id number] 03/08/2021 01:35:00 PM EDT [facility] Name Value Range Interpretation Code Description Data Maura rce(s) Supporting Document(s) Magnesium [Mass/volume] in Serum or Plasma 1.0 MG/DL 1.7 - 2.2 L [facility] ID Date Data Source [id number] 03/08/2021 12:59:00 PM EDT [facility] Name Value Range Interpretation Code Description Data Maura rce(s) Supporting Document(s) COMPREHENSIVE METABOLIC PANEL [facility] COMPREHENSIVE METABOLIC PANEL Sodium [Moles/volume] in Serum or Plasma 141 mEq/L 134 - 153 [facility] Potassium [Moles/volume] in Serum or Plasma 4.1 mEq/L 3.6 - 5.0 [facility] Chloride [Moles/volume] in Serum or Plasma 97 mEq/L 98 - 107 L [facility] Carbon dioxide, total [Moles/volume] in Serum or Plasma 34 MEQ/L 22 - 30 H [facility] Glucose [Mass/volume] in Serum or Plasma 96 MG/DL 70 - 99 [facility] BUN 8 MG/DL 7 - 21 [facility] Creatinine [Mass/volume] in Serum or Plasma 0.9 MG/DL 0.7 - 1.5 [facility] BUN/CREAT 9 8 - 27 [facility] Protein [Mass/volume] in Serum or Plasma 5.7 G/DL 6.3 - 8.2 L [facility] Albumin [Mass/volume] in Serum or Plasma 3.5 G/DL 3.9 - 5.0 L [facility] Globulin [Mass/volume] in Serum by calculation 2.2 GM/DL 2.4 - 3.2 L [facility] A/G RATIO 1.6 0.8 - 2.0 [facility] Calcium [Mass/volume] in Serum or Plasma 7.5 MG/DL 8.4 - 10.2 L [facility] Bilirubin.total [Mass/volume] in Serum or Plasma <0.7 MG/DL 0.2 - 1.3 [facility] Alkaline phosphatase [Enzymatic activity/volume] in Serum or Plasma 75 U/L 38 - 126 [facility] Aspartate aminotransferase [Enzymatic activity/volume] in Serum or Plasma 18 U/L 5 - 40 [facility] Alanine aminotransferase [Enzymatic activity/volume] in Seru m or Plasma 8 U/L 7 - 56 [facility] Anion gap 3 in Serum or Plasma 10.0 mmol/L 8.0 - 16.0 [facility] AGE 55 yrs [facility] al NON-AA GFR >60 mL/min [facility] ital AFR AMER GFR >60 mL/min [facility] Male GFR In terprentation 20-49 [...] >32 mL/min Normal ID Date Data Source [id number] 03/08/2021 01:15:00 PM EDT [facility] Name Value Range Interpretation Code Description Data Maura rce(s) Supporting Document(s) UR[facility]ALYSIS [facility] yellow NORMAL: Yellow [facility] CLARITY hazy NORMAL: Clear [facility] Specific gravity of Urine by Test strip 1.015 1.001 - 1.030 [facility] pH 6 5 - 9 [facility] Glucose [Mass/volume] in Urine by Test strip NORM NORMAL: Negat [facility] Bilirubin.total [Presence] in Urine by Test strip NEG NORMAL: Negative [facility] Ketones [Presence] in Urine by Test strip 5 NORMAL: Negative [facility] Protein [Mass/volume] in Urine by Test strip 30 NORMAL: Negat [facility] Nitrite [Presence] in Urine by Test strip NEG NORMAL: Negative [facility] BLOOD 10 NORMAL: Negative [facility] Leukocyte esterase [Presence] in Urine by Test strip NEG SHAUNA L: Negative [facility] Urobilinogen [Mass/volume] in Urine by Test strip 1 less lupe n 1.0 mg/dL [facility] MICROSCOPIC See Below [facility] ital WBC 0 - 1 NORMAL: NONE SEEN [facility] Erythrocytes [#/volume] in Urine by Test strip None Seen NORMAL: NON E SEEN [facility] EPITHELIAL MODERATE NORMAL: NONE SEEN [facility] Bacteria [Presence] in Urine sediment by Light microscopy Tr david NORMAL: NONE SEEN [facility] ID Date Data Source [id number] 03/08/2021 01:12:00 PM EDT [facility] Name Value Range Interpretation Code Description Data Maura rce(s) Supporting Document(s) Cobalamin (Vitamin B12) [Mass/volume] in Serum or Plasma 527 PG/ML 232 - 1245 [facility] ID Date Data Source [id number] 03/08/2021 12:53:00 PM EDT [facility] Name Value Range Interpretation Code Description Data Maura rce(s) Supporting Document(s) Iron [Mass/volume] in Serum or Plasma 41 UG/DL 42 - 135 L [facility] ID Date Data Source [id number] 03/08/2021 12:17:00 PM EDT [facility] Name Value Range Interpretation Code Description Data Maura rce(s) Supporting Document(s) Hemoglobin A1c/Hemoglobin.total in Blood 4.8 % 4.4 - 6.1 [facility] {A1]{HB] ID Date Data Source [id number] 03/08/2021 12:06:00 PM EDT [facility] Name Value Range Interpretation Code Description Data Maura [facility](s) Supporting Document(s) CBC W/AUTOMATED DIFF [facility] COMPLETE BLOOD COUNT Leukocytes [#/volume] in Blood by Automated count 8.6 10^3/uL 4.2 - 1 1.0 [facility] Erythrocytes [#/volume] in Blood by Automated count 2.96 10^6/uL 4. 20 - 5.40 L [facility] Hemoglobin [Mass/volume] in Blood 10.1 g/dL 12.0 - 16.0 L [facility] Hematocrit [Volume Fraction] of Blood by Automated count 31.1 % 3 7.0 - 47.0 L [facility] Erythrocyte mean corpuscular volume [Entitic volume] b y Automated count 105.1 fL 81.0 - 101 H [facility] Erythrocyte mean corpuscular hemoglobin [Entitic mass] by Automated count 34.1 pg 27.0 - 34.0 H [facility] Erythrocyte mean corpuscular hemoglobin concentration [Mass/volume] by Automated count 32.5 g/dL 31.0 - 36.0 [facility] Erythrocyte distribution width [Ratio] by Automated count 17.8 % 11.5 - 14.5 H [facility] Platelets [#/volume] in Blood by Automated count 314 10^3/uL 150 - 45 0 [facility] Platelet mean volume [Entitic volume] in Blood by Automated count 8.8 fL 7.4 - 10.4 [facility] Neutrophils/100 leukocytes in Blood by Automated count 71.5 % 37. 0 - 80.0 [facility] Lymphocytes/100 leukocytes in Blood by Manual count 9.2 % 25.0 - 40.0 L [facility] Monocytes/100 leukocytes in Blood by Automated count 16.8 % 3.0 - 8.0 H [facility] Eosinophils/100 leukocytes in Blood by Automated count 0.5 % 0.0 - 7.0 [facility] Basophils/100 leukocytes in Blood by Automated count 0.8 % 0.0 - 2.5 [facility] %IG 1.2 % 0.0 - 0.0 H [facility] %NRBC 0.0 % 0.0 - 0.0 [facility] Neutrophils [#/volume] in Blood by Automated count 6.13 10^3/uL 2.00 - 6.90 [facility] Lymphocytes [#/volume] in Blood by Automated count 0.79 10^3/uL 0.60 - 3.40 [facility] Monocytes [#/volume] in Blood by Automated count 1.44 10^3/uL 0.00 - 0.90 H [facility] Eosinophils [#/volume] in Blood by Automated count 0.04 10^3/uL 0.00 - 0.70 [facility] Basophils [#/volume] in Blood by Automated count 0.07 10^3/uL 0.00 - 0.20 [facility] #IG 0.10 10^3/uL 0.00 - 0.10 [facility] #NRBC 0.00 10^3/uL 0.00 - 0.00 [facility] MANUAL DIFF SEE BELOW [facility] Segmented neutrophils/100 leukocytes in Blood by Manual count 76 % 37 - 80 [facility] %LYMPH 12 % 25 - 40 L [facility] %MONO 10 % 3 - 8 H [facility] %EOS 2 % 0 - 7 [facility] RBC MORPH SEE BELOW [facility] Anisocytosis [Presence] in Blood by Light microscopy 1+ SHAUNA L: NONE SEEN A [facility] Poikilocytosis [Presence] in Blood by Light microscopy 1+ NOR MAL: NONE SEEN A [facility] HYPO 1+ NORMAL: NONE SEEN A [facility] { SICKLE CELL (NORMAL: NONE SEEN ) Ovalocytes [Presence] in Blood by Light microscopy 1+ NORMAL: NONE SEEN A [facility] Stomatocytes [Presence] in Blood by Light microscopy 1+ SHAUNA L: NONE SEEN A [facility] COMMENT: ID Date Data Source [id number] 02/17/2021 09:57:00 PM EDT [facility] Name Value Range Interpretation Code Description Data Maura rce(s) Supporting Document(s) SARS coronavirus 2 RNA panel NEG N [facility] This lab was ordered by [facility] and repor domenico by [facility]. ID Date Data Source [id number] 02/09/2021 04:00:00 PM EDT [facility] Name Value Range Interpretation Code Description Data Maura rce(s) Supporting Document(s) SARS coronavirus 2 RNA [Presence] in Res piratory specimen by DAR with probe detection NEGATIVE [facility] This lab was ordered by [facility] a nd reported by [facility]. ID Date Data Source [id number] 02/02/2021 05:02:00 AM EDT [address] [place] [address] RESPIRATORY CARE REPORT ==== ---------NAME------- NUMBER SEX AGE ADMIT DISC. XRAY# F/C TYPEHOFFMAN CHANTALE E [id number] F 55 01/31/21 01/31/21 [id number] [facility] E/R DATE OF : 1965 M/R# [id number] PH#: [phone] TR-02 LOCATION: [place] [id number] COMP LETE:02/01/21 02:55 [place] [id number] PHYSICIAN: LAVERNE STUBBS Name Value Range Interpretation Code Description Data Maura rce(s) Supporting Document(s) ID Date Data Source [id number] 02/01/2021 09:29:00 [place] [address] PHONE: [phone] FAX: [phone] Name .................. : JUANITO Daniels Acct Number.................. : [id number] ROOM. ................. : - Number ................... : [id number] Stay type ............. : E/R Discharge Date......... ... : 01/31/21 Admit Date ......... : 01/31/21 Admit Phys .................... : LAVERNE STUBBS Date of ....... : 1965 Family Phys ................... : SEQUEIRA Phone .................. : [phone] Age ................................ : 55 Film# .................. .:[id number] Sex ................................. : F Unsigned transcriptions are preliminary reports and do not represent a medical or legal document CHEST PORTABLE [id number] COMPLETE:01/31/21 17:41 [id number] Reason(s): COPD PO RTABLE [...] By Jimmy Ashby M.D. , 02/01/21 09:29, MOY Transcribe Initials: REYES , Transcribe Date: 01/31/21 19:03, Dictation Date: Copy for: EMERGENCY DEPT via [email or web address] Copy for: 710 MED REC DISCHARGED Page 1 of 1 Name Value Range Interpretation Code Description Data Maura rce(s) Supporting Document(s) ID Date Data Source [id number] 01/31/2021 05:29:00 PM EDT [facility] 1 OrderSheet [facility] Emergency Department [address] [place] [address] Phone #: ext- [phone] 01/31/2021 17:27 Patient: CHANTALE SOLOMON Sex: F : 1965 Age: 55yWEIGHT:80.5 kg (M) HEIGHT:60 inches (S) BMI:34.7ALLERGIES: Penicillins, SeafoodCHIEF COMPLAINT: coughDIAGNOSIS: Hemoptysis, Chronic obstructive lung disease, Malignant tumor of lungLAB ORDERSOrder Description Priority Entered Acknowledged InitialedCBC w Diff STAT 17:41 01/31/2021 17:56 Beckham, Laverne, Maria T Meghann R.N. M.D.;CMP STAT 17:41 01/31/2021 17:56 Beckham, Turrin, Maria T Meghann R.N. M.D.;Lipase STAT 17:41 01/31/2021 17:56 Beckham, Olyarin, Maria T Meghann R.N. M.D.;PT/PTT STAT 17:41 01/31/2021 17:56 Beckham, Turrin, Maria T Meghann R.N. M.D.;Troponin-T STAT 17:41 01/31/2021 17:56 Beckham, Olyarin, Maria T Meghann R.N. M.D.;BNP STAT 17:41 01/31/2021 17:56 Beckham, Olyarin, Maria T Meghann R.N. M.D.;Lactic Acid STAT 17:42 01/31/2021 17:56 Lakeshia, Laverne, Maria T Meghann R.N. M.D.;Blood Culture STAT 17:42 01/31/2021 17:56 Beckham,q10m X2 (Sched Turrin, Maria T Meghann R.N.17:42 01/31/2021) Leida;Blood Culture STAT 17:42 01/31/2021 17:56 Beckham,q10m X2 (Sched Turrin, Maria T Meghann R.N.17:52 01/31/2021) Leida;COVID-19 CAH STAT 17:42 01/31/2021 18:09 Pravin(Symptomatic as Turrin, Maria T Leilani R.N.Defined by CDC) Leida;(01/31/2021) (Not 2 OrderSheet [facility] Emergency Department [address] [place] [address] Phone #: ext- [phone] 01/31/2021 17:27 [id number] Sex: F : 1965 Age: 55yFirst Test) [...] M.D.;DuoNeb 3 mL X2 17:42 01/31/2021 18:14 Beckham,Doses (Filtered): 6 Laverne, Maria T Zavlaeta R.N.mL (3 mL X2 M.D.;Doses)SOLU-Medrol 125 17:42 01/31/2021 18:15 Lakeshia,mg IV X1 Dose: 125 Laverne, Maria T Zavaleta R.N.mg (X1) M.D.;Morphine IVP 2 mg 17:43 01/31/2021 18:15 Lakeshia,(HIGH ALERT Maria T Galloway R.N.MEDICATION) M.DKellen;- (Tranexamic Acid 18:10 01/31/2021 Ack'd: 18:15 18:24 Lakeshia,(TXA) 500 mg as Maria T Galloway Jennifer Jennifer R.N.nebulization) MKellenDKellen; R.N.GENERAL ORDERSOrder Description Priority Entered Acknowledged InitialedBlood Pressure 17:41 01/31/2021 17:56 Lakeshia,Monitor Maria T Galloway R.N. 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 (19:04 01/31/2021)] 4 OrderSheet [facility] Emergency Department [address] [place] [address] Phone #: ext- [phone] 01/31/2021 17:27 [id number] Sex: F : 1965 Age: 55y[Electronically locked by Leilani Costello R.N. (19:00 01/31/2021)] Name Value Range Interpretation Code Description Data Maura rce(s) Supporting Document(s) ID Date Data Source [id number] 01/31/2021 05:29:00 PM EDT [facility] 1 Medication Reconciliation Report [facility] Emergency Department [address] [place] [address] Phone #: ext- [phone] 01/31/2021 17:27 Patient: [...] the Emergency Department: 2 Medication Reconciliation Report [facility] Emergency Department [address] [place] [address] Phone #: ext- [phone] 01/31/2021 17:27 Patient: [...] rce(s) Supporting Document(s) ID Date Data Source [id number] 01/31/2021 05:29:00 PM EDT [facility] 1 Medication Administration Record [facility] Emergency Department [address] [place] [address] Phone #: ext- [phone] 01/31/2021 17:27 Patient: [...] rce(s) Supporting Document(s) ID Date Data Source [id number] 01/31/2021 05:29:00 PM EDT [facility] 1 General Instructions [facility] Emergency Department [address] [place] [address] Phone #: ext- [phone] 01/31/2021 17:27 Patient: CHANTALE SOLOMON Sex: F : 1965 Age: 55yMassive hemoptysis.Metastatic, advanced left upper lobe and lower lobe lung cancer.Acute exacerbation of COPD (emphysematous).(Electronically signed by Maria T Galloway M.D. 01/31/2021 19:04) Name Value Range Interpretation Code Description Data Maura rce(s) Supporting Document(s) ID Date Data Source [id number] 01/31/2021 05:29:00 PM EDT [facility] 1 Clinical Report - Nurses [facility] Emergency Department [address] [place] [address] Phone #: ext- [phone] 01/31/2021 17:27 Patient: CHANTALE SOLOMON Sex: F [...] is currently on Levaquin per Dr. Parnell (analog device designer), started that today first dose at 0600. Pt statesDr. Radha feels "something is going on with my lungs like a pneumonia". Pt wears 2LNC chronically andstates "i feel like my lungs are full of fluid". Pt is on Xarelto). 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 3 Clinical Report - Nurses [facility] Emergency Department [address] [place] [address] Phone #: ext- [phone] 01/31/2021 17:27 Patient: [...] cannula; (pt 87 % on pt normal 2LNC).telemetry monitor, NIBP monitor and pulse oximeter placed on patient; satellite project site monitor- Lead II; monitoralarms on; monitor strip added [...] 2 minute(s) 4 Clinical Report - Nurses [facility] Emergency Department [address] [place] [address] Phone #: ext- [phone] 01/31/2021 17:27 Patient: [...] blood has slowed down, preparing fortransfer [facility]). --19:00 01/31/21 Leilani Costello R.N.18:24 01/31/2021 Tranexamic [...] improvement in 5 Clinical Report - Nurses [facility] Emergency Department [address] [place] [address] Phone #: ext- [phone] 01/31/2021 17:27 Patient: [...] and care was transferred. (Angie FLORES in [facility] ER). --18:21 01/31/21 Leilani Costello R.N. late entry - 18:30 01/31/21. Departure time: late entry - 18:01/31/2021. Condition at departure: improved and stable. Transferred to [facility]. Visit overview, summary of care (CCDA), Emtala [...] rce(s) Supporting Document(s) ID Date Data Source [id number] 01/31/2021 05:29:00 PM EDT [facility] 1 Clinical Report - Physicians/Mid Levels [facility] Emergency Department [address] [place] [address] Phone #: ext- [phone] 01/31/2021 17:27 Patient: [...] 3 weeks ago, followed by pulmonology at [facility], Dr. 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 Additional history - No known contact with a sick individual. Similar symptoms previously. Patient has had similar symptoms occasionally. Worse from previously. ( much worse today). Recent medical care: The patient was seen recently at another facility in the office. ( yesterday, pulmonology at [facility]).REVIEW OF SYSTEMSNo headache, eye discomfort, nausea, vomiting [...] Cancer. 2 Clinical Report - Physicians/Mid Levels [facility] Emergency Department [address] [place] [address] Phone #: [phone]- [phone] 01/31/2021 17:27 Patient: CHANTALE SOLOMON Sex: F [...] distress. 3 Clinical Report - Physicians/Mid Levels [facility] Emergency Department [address] [place] [address] Phone #: ext- [phone] 01/31/2021 17:27 Patient: [...] # _[id number] 01/31/21.DW . KIT EXP DATE _90-82-59 01/31/21.DW . NORMAL RANGE IS NOT DETECTEDNEGATIVE [...] results 4 Clinical Report - Physicians/Mid Levels [facility] Emergency Department [address] [place] [address] Phone #: ext- [phone] 01/31/2021 17:27 Patient: CHANTALE SOLOMON Sex: F [...] 5.0) 5 Clinical Report - Physicians/Mid Levels [facility] Emergency Department [address] [place] [address] Phone #: ext- [phone] 01/31/2021 17:27 Patient: [...] mL/min Normal Lipase: (SARAH: 01/31/2021 17:38) ( [facility] 01/31/2021 18:19) Final results Test Result Flag [...] Thrombosis, Pulmonary Embolus, Tissue heart valves, Acute SD Atrial Fibrillation, Valvular heart disease and recurrent Systemic Embolism. -International Normalized Ratio (INR): 2.5 - 3.5 for Mechanical Prosthetic valve. Troponin-T: (SARAH: 01/31/2021 17:38) ( [facility] [place]/31/[place]21 18:25) Final results Test Result Flag Units (Reference) TROPONIN T 0.01 NG/ML (0.00 - 0.10) TROPONIN T0.1 ng/ml Recommended as the clinical threshold value forTroponin T. BNP: (SARAH: 01/31/2021 17:38) ( [facility] 01/31/2021 18:25) Final results Test Result Flag Units (Reference) BNP 1304 H PG/ML (0 - 125).PROGRESS AND PROCEDURESCourse of Care: 18:02 01/31/21. case discussed w Dr. Dominguez, analog device designer at [facility], who advised tosend to ER STAT; waiting for ER to call back; pt calmer, doing better; coughed about 250 ml of blood so far 18:10 01/31/21. Dr. Torres, ER MD, called back, case discussed, she was aware of pt per Dr. Dominguez, recommends also TXA nebulization, will do 6 Clinical Report - Physicians/Mid Levels [facility] Emergency Department [address] [place] [address] Phone #: ext- [phone] 01/31/2021 17:27 Patient: CHANTALE SOLOMON Sex: F : 1965 Age: 55y 18:12 01/31/21. VBG and lactic in and reviewed, rest pending 18:28 01/31/21. CMP, BNP, troponin results in; TXA nebulizer going (500 mg in 10 ml), EMT's here for transport to [facility], pt so much better, no hemoptysis; Hb/Ht [...] explained to patient and spouse. Transferred to [facility]. Summary of care (CCDA) provided to transport team, patient and transfer facility via paper. Condition: stable and critical.CLINICAL IMPRESSION Massive hemoptysis. Metastatic, advanced left upper lobe and lower lobe lung cancer. Acute exacerbation of COPD (emphysematous).(Electronically signed by Maria T Galloway M.D. 01/31/2021 19:04) Name Value Range Interpretation Code Description Data Maura rce(s) Supporting Document(s) ID Date Data Source [id number] 02/06/2021 06:45:00 AM EDT [facility] Name Value Range Interpretation Code Description Data Maura rce(s) Supporting Document(s) Bacteria identified in Blood by Culture [facility] NO GROWTH AFTER 5 DAYS ID Date Data Source [id number] 02/11/2021 06:15:00 AM EDT [facility] Name Value Range Interpretation Code Description Data Maura rce(s) Supporting Document(s) CULTURE BLOOD [facility] spital _CULTURE BLOOD_ TEST [place] [address] CLIA# [id number] SEE SCANNED REPORT{ PRELIM ID Date Data Source [id number] 01/31/2021 05:55:00 PM EDT [facility] Name Value Range Interpretation Code Description Data Maura rce(s) Supporting Document(s) COVID19 Case rprt NOT DETECTED [facility] This lab was ordered by [facility] and reported by [facility]. ID Date Data Source [id number] 01/31/2021 06:42:00 PM EDT [facility] NOT DETECTEDNOT DETECTED{ PROC EDURAL CONTROL VALID KIT LOT # _[id number] 01/31/21.DW . KIT EXP DATE _33-28-87 01/31/21.DW . NORMAL RANGE IS NOT DETECTEDNEGATIVE [...] rce(s) Supporting Document(s) ID Date Data Source [id number] 02/11/2021 06:14:00 AM EDT [facility] Name Value Range Interpretation Code Description Data Maura rce(s) Supporting Document(s) CULTURE BLOOD [facility] spital _CULTURE BLOOD_ TEST PERFORM ED AT [place] [id number] [place] [address] IA# [id number] SEE SCANNED REPORT{ PRELIM ID Date Data Source [id number] 01/31/2021 06:41:00 PM EDT [facility] Name Value Range Interpretation Code Description Data Maura rce(s) Supporting Document(s) CBC W/AUTOMATED DIFF [facility] COMPLETE BLOOD COUNT Leukocytes [#/volume] in Blood by Automated count 23.8 10^3/uL 4.2 - 11.0 H [facility] Erythrocytes [#/volume] in Blood by Automated count 2.92 10^6/uL 4. 20 - 5.40 L [facility] Hemoglobin [Mass/volume] in Blood 10.7 g/dL 12.0 - 16.0 L [facility] Hematocrit [Volume Fraction] of Blood by Automated count 31.8 % 3 7.0 - 47.0 L [facility] Erythrocyte mean corpuscular volume [Entitic volume] b y Automated count 108.9 fL 81.0 - 101 H [facility] Erythrocyte mean corpuscular hemoglobin [Entitic mass] by Automated count 36.6 pg 27.0 - 34.0 H [facility] Erythrocyte mean corpuscular hemoglobin concentration [Mass/volume] by Automated count 33.6 g/dL 31.0 - 36.0 [facility] Erythrocyte distribution width [Ratio] by Automated count 20.1 % 11.5 - 14.5 H [facility] Platelets [#/volume] in Blood by Automated count 447 10^3/uL 150 - 45 0 [facility] Platelet mean volume [Entitic volume] in Blood by Automated count 9.0 fL 7.4 - 10.4 [facility] Neutrophils/100 leukocytes in Blood by Automated count 74.8 % 37. 0 - 80.0 [facility] Lymphocytes/100 leukocytes in Blood by Manual count 10.9 % 25.0 - 40.0 L [facility] Monocytes/100 leukocytes in Blood by Automated count 7.3 % 3.0 - 8.0 [facility] Eosinophils/100 leukocytes in Blood by Automated count 0.0 % 0.0 - 7.0 [facility] Basophils/100 leukocytes in Blood by Automated count 0.8 % 0.0 - 2.5 [facility] %IG 6.2 % 0.0 - 0.0 H [facility] %NRBC 0.6 % 0.0 - 0.0 H [facility] Neutrophils [#/volume] in Blood by Automated count 17.83 10^3/uL 2. 00 - 6.90 H [facility] Lymphocytes [#/volume] in Blood by Automated count 2.59 10^3/uL 0.60 - 3.40 [facility] Monocytes [#/volume] in Blood by Automated count 1.73 10^3/uL 0.00 - 0.90 H [facility] Eosinophils [#/volume] in Blood by Automated count 0.01 10^3/uL 0.00 - 0.70 [facility] Basophils [#/volume] in Blood by Automated count 0.18 10^3/uL 0.00 - 0.20 [facility] #IG 1.48 10^3/uL 0.00 - 0.10 H [facility] #NRBC 0.15 10^3/uL 0.00 - 0.00 H [facility] MANUAL DIFF SEE BELOW [facility] ital Segmented neutrophils/100 leukocytes in Blood by Manual count 75 % 37 - 80 [facility] %LYMPH 10 % 25 - 40 L [facility] al %MONO 10 % 3 - 8 H [facility] al Metamyelocytes/100 leukocytes in Blood by Manual count 2 % [facility] Myelocytes/100 leukocytes in Blood by Manual count 3 % [facility] RBC MORPH SEE BELOW [facility] al Anisocytosis [Presence] in Blood by Light microscopy 1+ SHAUNA L: NONE SEEN A [facility] Macrocytes [Presence] in Blood by Light microscopy 1+ NORMAL: NONE SEEN A [facility] Polychromasia [Presence] in Blood by Light microscopy 1+ NORM AL: NONE SEEN A [facility] { SICKLE CELL (NORMAL: NONE SEEN ) Platelet adequacy [Presence] in Blood by Light microscopy NORMAL NORMAL: NORMAL [facility] COMMENT: ID Date Data Source [id number] 01/31/2021 06:25:00 PM EDT [facility] Name Value Range Interpretation Code Description Data Maura rce(s) Supporting Document(s) COMPREHENSIVE METABOLIC PANEL [facility] COMPREHENSIVE METABOLIC PANEL Sodium [Moles/volume] in Serum or Plasma 136 mEq/L 134 - 153 [facility] Potassium [Moles/volume] in Serum or Plasma 4.2 mEq/L 3.6 - 5.0 [facility] Chloride [Moles/volume] in Serum or Plasma 89 mEq/L 98 - 107 L [facility] Carbon dioxide, total [Moles/volume] in Serum or Plasma 27 MEQ/L 22 - 30 [facility] Glucose [Mass/volume] in Serum or Plasma 173 MG/DL 70 - 99 H [facility] BUN 22 MG/DL 7 - 21 [facility] Creatinine [Mass/volume] in Serum or Plasma 1.3 MG/DL 0.7 - 1.5 [facility] BUN/CREAT 17 8 - 27 [facility] Protein [Mass/volume] in Serum or Plasma 6.9 G/DL 6.3 - 8.2 [facility] Albumin [Mass/volume] in Serum or Plasma 4.2 G/DL 3.9 - 5.0 [facility] Globulin [Mass/volume] in Serum by calculation 2.7 GM/DL 2.4 - 3.2 [facility] A/G RATIO 1.6 0.8 - 2.0 [facility] Calcium [Mass/volume] in Serum or Plasma 9.3 MG/DL 8.4 - 10.2 [facility] Bilirubin.total [Mass/volume] in Serum or Plasma <0.7 MG/DL 0.2 - 1.3 [facility] Alkaline phosphatase [Enzymatic activity/volume] in Serum or Plasma 82 U/L 38 - 126 [facility] Aspartate aminotransferase [Enzymatic activity/volume] in Serum or Plasma 27 U/L 5 - 40 [facility] Alanine aminotransferase [Enzymatic activity/volume] in Seru m or Plasma 51 U/L 7 - 56 [facility] Anion gap 3 in Serum or Plasma 20.0 mmol/L 8.0 - 16.0 H [facility] AGE 55 yrs [facility] NON-AA GFR 45 mL/min [facility] AFR AMER GFR 55 mL/min [facility] Male GFR In terprentation 20-49 [...] >32 mL/min Normal ID Date Data Source [id number] 01/31/2021 06:25:00 PM EDT [facility] Name Value Range Interpretation Code Description Data Maura rce(s) Supporting Document(s) BNP 1304 PG/ML 0 - 125 H [facility] ID Date Data Source [id number] 01/31/2021 06:25:00 PM EDT [facility] Name Value Range Interpretation Code Description Data Maura rce(s) Supporting Document(s) TROPONIN T 0.01 NG/ML 0.00 - 0.10 [facility] TROPONIN T0.1 ng/ml Recommended as the c linical threshold value forTroponin T. ID Date Data Source [id number] 01/31/2021 06:25:00 PM EDT [facility] Name Value Range Interpretation Code Description Data Maura rce(s) Supporting Document(s) Prothrombin time (PT) 21.0 SECONDS 11.0 - 15.5 H [facility] INR in Platelet poor plasma by Coagulation assay 1.72 0.93 - 1. 23 H [facility] aPTT in Blood by Coagulation assay 29.7 SECONDS 24.8 - 36.7 [facility] \\BLDo\\INR INTERPRETATION\\BLDx\\ Therapeutic range for Coumadin and related oral anticoagulants. - International Normalized Ratio (INR): 2.0 - 3.0 for Venous Thrombosis, Pulmonary Embolus, Tissue heart valves, Acute SD Atrial Fibrillation, Valvular heart disease and recurrent Systemic Embolism. - International Normalized Ratio (INR): 2.5 - 3.5 for Mechanical Prosthetic valve. ID Date Data Source [id number] 01/31/2021 06:19:00 PM EDT [facility] Name Value Range Interpretation Code Description Data Maura rce(s) Supporting Document(s) Lipase [Enzymatic activity/volume] in Serum or Plasma 29 U/L 13 - 60 [facility] ID Date Data Source [id number] 01/31/2021 06:00:00 PM T [facility] Name Value Range Interpretation Code Description Data Maura rce(s) Supporting Document(s) pH of Serum or Plasma 7.37 7.32 - 7.43 [facility] pCO2 V 55.4 mm/HG 38.0 - 51.0 H [facility] pO2 V 50.5 mm/HG 30.0 - 55.0 [facility] Bicarbonate [Moles/volume] in Venous blood 31.2 meq/L 22.0 - 29.0 H [facility] TCO2 V 32.9 meq/L 22.0 - 29.0 H [facility] Base excess in Blood by calculation 4.8 -2.0 - 2.0 H [facility] O2 SAT V 84.7 % 40.0 - 85.0 [facility] ital ID Date Data Source [id number] 01/31/2021 05:59:00 PM EDT [facility] Name Value Range Interpretation Code Description Data Maura rce(s) Supporting Document(s) Lactate [Moles/volume] in Serum or Plasma 5.9 MMOL/L 0.2 - 2.2 [facility] CALL/ READ BACK DAMON IN ED [facility] BY: RASHAD [facility] DATE/TIME [id number]/1800 [facility] ital ID Date Data Source [id number] 01/30/2021 01:11:00 PM EDT [facility] ([facility], ) Name Value Range Interpretation Code Description Data Maura rce(s) Supporting Document(s) Gram Stain Laboratory test result Normal (applies to non-n umeric results) [facility] ([facility], ) QUALITY: GOOD FEW EPITHELIAL CELLS MANY WBCS FEW GRAM POSITIVE COCCI IN PAIRS AND CLUSTERS FEW GRAM NEGATIVE COCCOBACILLUS Sputum Culture Laboratory test result Normal (applies to non-numeric results) [facility] ([facility], ) <content>FULL REPORT IN LAB NOTES (eCW [...] 2 S</content>
<content></content> ID Date Data Source [id number] 01/30/2021 01:11:00 PM EDT [facility] ([facility]) Name Value Range Interpretation Code Description Data Maura rce(s) Supporting Document(s) Bacteria identified in Sputum by Aerobe culture Laboratory test resul t [facility] ([facility]) ID Date Data Source [id number] 01/30/2021 12:55:00 PM EDT [facility] ([facility]) Name Value Range Interpretation Code Description Data Maura rce(s) Supporting Document(s) FVC-Pre 0.89 L [facility] ([facility]) FVC-Pred 2.96 L [facility] ([facility]) PDFReport Laboratory test result [facility] ([facility]) Fev1-Pred 2.32 L [facility] ([facility]) FVC-%Pred-Pre 30 L [facility] ([facility]) FVC-LLN 2.35 L [facility] ([facility]) Fev1-%Pred-Pre 31 L [facility] ([facility]) Fev1-LLN 1.80 L [facility] ([facility]) Fev1-Pre 0.73 L [facility] ([facility], ) Fev6-LLN 2.27 L [facility] ([facility], ) Fev6-%Pred-Pre 31 L [facility] ([facility], ) Fev6-Pred 2.87 L [facility] ([facility], ) Fev6-Pre 0.89 L [facility] ([facility], ) Ffm1jpl-%Pred-Pre 103 % [facility] ([facility], ) Plx8awa-Ckvv 79 % [facility] ([facility], ) Klk4zmc-Wvm 82 % [facility] ([facility]) Mmj3bjj-Ctgw 97 % [facility] ([facility]) Jgm5liq-Kik 100 % [facility] ([facility]) Qwp1fli-WHR 69 % [facility] ([facility]) FEFMax-Pre 2.11 L/E/sec [facility] ([facility]) FEFMax-Pred 5.94 L/E/sec [facility] ([facility]) Wtm5uci-%Pred-Pre 103 % [facility] ([facility]) FEFMax-LLN 4.44 L/E/sec [facility] ([facility]) Isv2927-Ihle 2.34 L/E/sec [facility] ([facility]) FEFMax-%Pred-Pre 35 L/E/sec [facility] ([facility]) Sex2677-Ckp 0.74 L/E/sec [facility] ([facility], ) Evq9276-DLQ 1.25 L/E/sec [facility] ([facility]) Nlz2642-%Pred-Pre 31 L/E/sec [facility] ([facility]) ExpTime-Pre 5.94 sec [facility] ([facility]) Lts1zuk8-Ijc 82 % [facility] ([facility]) Dqk1mnz3-%Pred-Pre 100 % [facility] ([facility]) Pgi5dgy0-Ebue 82 % [facility] ([facility]) Vla1kbf9-ZYZ 73 % [facility] ([facility]) ID Date Data Source [id number] 01/17/2021 01:20:00 PM EDT [facility] ([facility]) Name Value Range Interpretation Code Description Data Maura rce(s) Supporting Document(s) Gram Stain Laboratory test result Normal (applies to non-n umeric results) [facility] ([facility]) QUALITY: GOOD MANY WBCS FEW EPITHELIAL CELLS MODERATE GRAM POSITIVE COCCI IN PAIRS, CHAINS AND CLUSTERS FEW YEAST LIKE ORGANISM WITH PSEUDOHYPHAE FEW GRAM NEGATIVE RODS Sputum Culture Laboratory test result Normal (applies to non-numeric results) [facility] ([facility]) FULL REPORT IN LAB NOTES ([facility] NORMAL JEROME PRESENT ORGANISM 1: YEAST LIKE ORGANISM QUANTITY OF GROWTH FEW ORGANISM 1: YEAST LIKE ORGANISM ID Date Data Source [id number] 01/17/2021 01:20:00 PM EDT [facility] ([facility]) Name Value Range Interpretation Code Description Data Maura rce(s) Supporting Document(s) Bacteria identified in Sputum by Aerobe culture Laboratory test result Normal (applies to non-numeric results) [facility] ([facility]) QUALITY: GOOD MANY WBCS FEW EPITHELIAL CELLS MODERATE GRAM POSITIVE COCCI IN PAIRS, CHAINS AND CLUSTERS FEW YEAST LIKE ORGANISM WITH PSEUDOHYPHAE FEW GRAM NEGATIVE RODS ID Date Data Source [id number] 12/22/2020 10:24:00 [place] [address] PROGRESS NOTENAME: JUANITO Daniels ROOM#: [id number] OF : 1965 MR#: [id number] DATE: 12/20/20 OF SERVICE: 12/22/2020UBJECTIVE:This patient has [...] Osmel Alvarez MD, PC 12/27/20 09:34 [address] [place] [address] PROGRESS NOTENAME: JUANITO AMAYADOREEN Daniels ROOM#: [id number] OF : 1965 MR#: [id number] DATE: 12/20/20 2 Name Value Range Interpretation Code Description Data Maura rce(s) Supporting Document(s) ID Date Data Source [id number] 12/21/2020 10:05:00 [place] [address] PROGRESS NOTENAME: JUANITO Daniels ROOM#: [id number] OF : 1965 MR#: [id number] DATE: 12/20/20 [id number] OF SERVICE: 12/21/2020UBJECTIVE:This patient has pneumonia left [...] rce(s) Supporting Document(s) ID Date Data Source [id number] 12/23/2020 12:19:00 [place] [address] HISTORY AND PHYSICALNAME: JUANITO Daniels ROOM#: [id number] OF : 1965 MR#: [id number] PHYS: Osmel Alvarez MD, [facility] [id number] DATE: 12/20/20CHIEF COMPLAINT: This is a 55-year-old [...] [facility] [place]. Patient hasintermittent chills and fever. She has [...] had pulmonary emboli. She was admitted to [facility] on 08/05/20 for atrialfibrillation and [...] Mother is alive. She has COPD.ALLERGIES: [address] [address] HISTORY AND PHYSICALNAME: JUANITO Daniels ROOM#: [id number] OF : 1965 MR#: [id number] PHYS: Osmel Alvarez MD, PC DATE: 12/20/20PENICILLIN [...] Osmel Alvarez MD, PC 12/27/20 09:34 [address] [place] [address] HISTORY AND PHYSICALNAME: JUANITO Daniels ROOM#: [id number] OF : 1965 MR#: [id number] PHYS: Osmel Alvarez MD, PC DATE: 12/20/20 3 Name Value Range Interpretation Code Description Data Maura rce(s) Supporting Document(s) ID Date Data Source [id number] 12/23/2020 12:37:00 [place] [address] DISCHARGE SUMMARYNAME: JUANITO Daniels ROOM#: [id number] OF : 1965 MR#: [id number] PHYS: Osmel Alvarez MD, PC DATE: 12/20/20 [...] so it wasdecided to transfer her to [facility]. I spoke with the hospitalist and the patient will betransferred there for further care and the senior tax specialist will be consulted.FINAL DIAGNOSIS:1. Pneumonia left lung.2. Collapsed left lung.3. Possible mucus plugs causing collapse.4. Carcinoma of the left lung. The possibility of collapse of the left lung from carcinoma cannot be ruled out.5. History of pulmonary emboli. [address] [place] [address] DISCHARGE SUMMARYNAME: JUANITO Daniels ROOM#: [id number] OF : 1965 MR#: [id number] PHYS: Osmel Alvarez MD, DATE: 12/20/20 DISCHARGED: 12/23/20 6. History of hypertension. 7. History of COPD. 8. History of anemia. 9. History of thrombocytopenia.DD: Osmel Alvarez MD, 12/23/20 11:24DT: SONYA 12/23/20 12:19DS: Osmel Alvarez MD, PC 12/27/20 09:34 2 Name Value Range Interpretation Code Description Data Maura rce(s) Supporting Document(s) ID Date Data Source [id number] 12/25/2020 01:55:00 [place] [address] PHONE: [phone] FAX: [phone] Name .................. : JUANITO Daniels Acct Number.................. : [id number] ROOM. ................. : CCU4 MR Number ................... : [id number] Stay type ............. : I/P Discharge Date......... ... : 12/23/20 Admit Date ......... : 12/20/20 Admit Phys .................... : KIM VANESSA Date of ....... : 1965 Family Phys ................... : [email or web address] Phone .................. : [phone] Age ................................ : 55 Film# .................. .:[id number] Sex ................................. : F Unsigned transcriptions are preliminary reports and do not represent a medical or legal document CHEST PORTABLE [id number] COMPLETE:12/23/20 09:09 [facility] [id number] (REASON FOR CHEST: PNEUMONIA PORTABLE CHEST X-RAY: [...] rce(s) Supporting Document(s) ID Date Data Source [id number] 12/20/2020 10:53:00 AM EST [facility] 1 OrderSheet [facility] Emergency Department [address] [place] [address] Phone #: ext- [phone] 12/20/2020 10:48 Patient: CHANTALE SOLOMON Sex: F : 1965 Age: 55yWEIGHT:80.2 kg (M) HEIGHT:60 inches (S) BMI:34.5ALLERGIES: Penicillins, SeafoodCHIEF COMPLAINT: dyspnea, CHF, wheezingDIAGNOSIS: PneumoniaLAB ORDERSOrder Description Priority Entered Acknowledged InitialedCBC w Diff STAT 11:12/20/2020 11:34 Chau Bower R.N.;BNP STAT 11:12/20/2020 11:34 Chau BowerNKellen LOPEZ;CMP STAT 11:12/20/2020 11:34 Chau BowerNKellen LOPEZ;D-Dimer STAT 11:12/20/2020 11:34 Chau Bower R.N.;Influenza Nasal A B STAT 11:12/20/2020 11:53 Chau Bower R.N.;Lactic Acid STAT 11:12/20/2020 11:34 Chau Bower R.N.;Troponin-T STAT 11:12/20/2020 11:34 Chau Bower R.N. PA;Urinalysis (Clean STAT 11:09 1Catch) Chau LOPEZ;COVID-19 CAH STAT 11:09 12/20/2020 11:53 Sathish,(Symptomatic as ChauCamargojose Perryica R.N.Defined by CDC) PA;(11/24/2020) (NotFirst Test) (NotHospitalized) (Not) (NotResident in 2 OrderSheet [facility] Emergency Department [address] [place] [address] Phone #: ext- [phone] 12/20/2020 10:48 Patient: [...] mL (3 PA;mL X2 Doses) 3 OrderSheet [facility] Emergency Department [address] [place] [address] Phone #: ext- [phone] 12/20/2020 10:48 Patient: [...] Acknowledged InitialedEKG 11:09 12/20/2020 11:53 Chau Bower R.N.;Grinder Set Up Operator Universal 11:09 12/20/2020 11:34 Sathish(continuous) Chau LOPEZ;Oxygen titrate to 11:12/20/2020 11:34 Sathish,92% Chau LOPEZ;Pulse Oximetry 11:12/20/2020 11:34 Sathish,Justa LOPEZ;Filtered Nebulizer 11:12/20/2020 11:34 Chau Bower R.N.;[Electronically signed by Ruth Bower R.N. (15:11 12/20/2020)][Electronically signed by Chau Amaya (21:07 12/20/2020)][Electronically locked by Ruth Bower R.N. (15:11 12/20/2020)] Name Value Range Interpretation Code Description Data Maura rce(s) Supporting Document(s) ID Date Data Source [id number] 12/20/2020 10:53:00 AM EST [facility] 1 Medication Reconciliation Report [facility] Emergency Department [address] [place] [address] Phone #: ext- [phone] 12/20/2020 10:48 Patient: [...] administered: 11:30 12/20/2020 2 Medication Reconciliation Report [facility] Emergency Department [address] [place] [address] Phone #: ext- [phone] 12/20/2020 10:48 Patient: [...] rce(s) Supporting Document(s) ID Date Data Source [id number] 12/20/2020 10:53:00 AM EST [facility] 1 Medication Administration Record [facility] Emergency Department [address] [place] [address] Phone #: ext- [phone] 12/20/2020 10:48 Patient: [...] TX Doses (Filtered): 6 mL (3 mL U9YaghvRuth Bower, R.N. Doses)----Stop11:45 12/20/2020Ruth Bower, R.N.Given DEXAMETHASONE [IVP] Dexamethasone IVP 10mg11:36 12/20/2020 Dose: 10 mg IVPRuth Bower, R.N. Site: #1 right ACStart ROCEPHIN (1GM/50ML) [IVPB] Rocephin (1gm/50mL) IVPB 057806:16 12/20/2020 (CEFTRIAXONE SODIUM) mg with Dextrose 50 [...] 250 mL (NOW x1)---- Site: #1 right MJUgep33:59 12/20/2020Ruth Bower R.N.Given TYLENOL [PO] (APAP) Tylenol PO 1000 mg1 3:58 12/20/2020 Dose: 1000 mg Tablets Ruth Dejesus R.N. Name Value Range Interpretation Code Description Data Maura rce(s) Supporting Document(s) ID Date Data Source [id number] 12/20/2020 10:53:00 AM [facility] 1 General Instructions [facility] Emergency Department [address] [place] [address] Phone #: ext- [phone] 12/20/2020 10:48 Patient: CHANTALE SOLOMON Sex: F : 1965 Age: 55yLobar pneumonia.(Electronically signed by JOHN Yao 12/20/2020 21:07) Name Value Range Interpretation Code Description Data Maura rce(s) Supporting Document(s) ID Date Data Source [id number] 12/20/2020 10:53:00 AM [facility] 1 Clinical Report - Nurses [facility] Emergency Department [address] [place] [address] Phone #: ext- [phone] 12/20/2020 10:48 Patient: CHANTALE SOLOMON Sex: F [...] chemo last week, sees Dr. Steel via [facility]. Pt wears chronic 2L O2). 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 Symptoms did not improve after [...] Asher R.N.Allergies 2 Clinical Report - Nurses [facility] Emergency Department [address] [place] [address] Phone #: ext- [phone] 12/20/2020 10:48 Patient: CHANTALE SOLOMON Sex: F [...] Asher R.N. 3 Clinical Report - Nurses [facility] Emergency Department [address] [place] [address] Phone #: ext- [phone] 12/20/2020 10:48 Patient: [...] 12/20/20 Ruth Bower R.N. Patient transported to [place] by wheelchair with mask and it technical specialist. --12:04 12/20/20 Sathish, Ruth, R.N. 4 Clinical Report - Nurses [facility] Emergency Department [address] [place] [address] Phone #: ext- [phone] 12/20/2020 10:48 Patient: [...] Bower R.N. 5 Clinical Report - Nurses [facility] Emergency Department [address] [place] [address] Phone #: ext- [phone] 12/20/2020 10:48 Patient: CHANTALE SOLOMON Sex: F [...] rce(s) Supporting Document(s) ID Date Data Source [id number] 12/20/2020 10:53:00 AM [facility] 1 Clinical Report - Physicians/Mid Levels [facility] Emergency Department [address] [place] [address] Phone #: ext- [phone] 12/20/2020 10:48 Patient: [...] chemo last week, sees Dr. Steel via [facility]. Pt wears chronic 2L O2). ( [...] daily. 2 Clinical Report - Physicians/Mid Levels [facility] Emergency Department [address] [place] [address] Phone #: ext- [phone] 12/20/2020 10:48 Patient: CHANTALE SOLOMON Sex: F [...] 80.0) 3 Clinical Report - Physicians/Mid Levels [facility] Emergency Department [address] [place] [address] Phone #: ext- [phone] 12/20/2020 10:48 Patient: [...] Male GFR Interprentation 20-49 yrs >60 mL/min Lveeci21-43 yrs >56 mL/min Normal 60-69 yrs >49 mL/min Normal 70-79yrs>42 mL/min Normal 80 and above >35 mL/min Normal Female GFRInterpretation 20-39 yrs >60 mL/min Normal 40-49 yrs >58 mL/minNormal 50- 59 yrs >51 mL/min Normal 60-69 yrs >45 mL/min Jpnhgu47-20 yrs >39 mL/min Normal 80 and above >32 mL/min NormalD-Dimer: (SARAH: 12/20/2020 11:30) ( NcgRcvd 12/20/2020 13:03) Final results Test Result Flag Units (Reference) D-DIMER QUANT 2.90 H ug/mL (0.27 - 0.50)Influenza Nasal A B: (SARAH: 12/20/2020 11:52) ( MsgRcvd 12/20/2020 12:39) Final results 4 Clinical Report - Physicians/Mid Levels [facility] Emergency Department [address] [place] [address] Phone #: ext- [phone] 12/20/2020 10:48 Patient: [...] managementdecisions. Lactic Acid: (SARAH: 12/20/2020 11:30) ( [facility] 12/20/[place] 12:18) Final results Test Result Flag [...] agrees with plan to admit. D/w Dr Alvraez and he will evaluate pt in the [...] IMPRESSION 5 Clinical Report - Physicians/Mid Levels [facility] Emergency Department [address] [place] [address] Phone #: ext- [phone] 12/20/2020 10:48 Patient: CHANTALE SOLOMON Sex: F : 1965 Age: 55y Lobar pneumonia.(Electronically signed by JOHN Yao 12/20/2020 21:07) Name Value Range Interpretation Code Description Data Maura rce(s) Supporting Document(s) ID Date Data Source [id number] 12/20/2020 10:53:00 AM EST [facility] Addenda for CHANTALE SOLOMON VisitID: [id number] Date: 10:20Pt covid test negative, pt was admitted to [facility] and was negative per rapid; Pt was d/c home and calledher at 1018, left voicemail.(Electronically signed by Meghann Asher R.N. - 12/25/2020 10:20)12/25/2020 13:01Pt called back at 1209 and made aware of PCR results, no further intervention required.(Electronically signed by Meghann Asher R.N. - 12/25/2020 13:01) Name Value Range Interpretation Code Description Data Maura rce(s) Supporting Document(s) ID Date Data Source [id number] 12/23/2020 07:11:00 AM EST [facility] ([facility] [...] 16 % 25-40 Below low normal [facility] ([facility]) Laboratory test finding (navigational concept) 11 % 3-8 Above high normal [facility] (O[facility] Alvarez [facility]) Laboratory test finding (navigational concept) 0 % 0-2 [facility] ([facility]varez [facility]) Laboratory test finding (navigational concept) 0 % 0-7 [facility] ([facility]smel Alvarez [facility]) Laboratory test finding (navigational concept) Laboratory test result [facility] ([facility]) ID Date Data Source [id number] 12/23/2020 07:11:00 AM EST [facility] ([facility]smel Alvarez [...] (Osmel Alvarez MD) ID Date Data Source [id number] 12/23/2020 07:11:00 AM EST [facility] ([facility]) Name Value Range Interpretation Code Description Data Maura rce(s) Supporting Document(s) Magnesium [Mass/volume] in Serum or Plasma 1.7 mg/dL 1.7-2.2 [facility] (Osmel Alvarez MD) ID Date Data Source [id number] 12/23/2020 08:54:00 AM EST [facility] Name Value Range Interpretation Code Description Data Maura rce(s) Supporting Document(s) CBC W/AUTOMATED DIFF [facility] COMPLETE BLOOD COUNT Leukocytes [#/volume] in Blood by Automated count 4.1 10^3/uL 4.2 - 1 1.0 L [facility] Erythrocytes [#/volume] in Blood by Automated count 2.75 10^6/uL 4. 20 - 5.40 L [facility] Hemoglobin [Mass/volume] in Blood 9.4 g/dL 12.0 - 16.0 L [facility] Hematocrit [Volume Fraction] of Blood by Automated count 27.8 % 3 7.0 - 47.0 L [facility] Erythrocyte mean corpuscular volume [Entitic volume] b y Automated count 101.1 fL 81.0 - 101 H [facility] Erythrocyte mean corpuscular hemoglobin [Entitic mass] by Automated count 34.2 pg 27.0 - 34.0 H [facility] Erythrocyte mean corpuscular hemoglobin concentration [Mass/volume] by Automated count 33.8 g/dL 31.0 - 36.0 [facility] Erythrocyte distribution width [Ratio] by Automated count 14.2 % 11.5 - 14.5 [facility] Platelets [#/volume] in Blood by Automated count 219 10^3/uL 150 - 45 0 [facility] Platelet mean volume [Entitic volume] in Blood by Automated count 9.3 fL 7.4 - 10.4 [facility] Neutrophils/100 leukocytes in Blood by Automated count 62.4 % 37. 0 - 80.0 [facility] Lymphocytes/100 leukocytes in Blood by Manual count 11.3 % 25.0 - 40.0 L [facility] Monocytes/100 leukocytes in Blood by Automated count 17.2 % 3.0 - 8.0 H [facility] Eosinophils/100 leukocytes in Blood by Automated count 0.0 % 0.0 - 7.0 [facility] 0.5 %IG 8.6 % 0.0 - [facility].0 [facility] 0.5 % 0.0 - 0.0 H [facility] al Neutrophils [#/volume] in Blood by Automated count 2.53 10^3/uL 2.00 - 6.90 [facility] Lymphocytes [#/volume] in Blood by Automated count 0.46 10^3/uL 0.60 - 3.40 L [facility] Monocytes [#/volume] in Blood by Automated count 0.70 10^3/uL 0.00 - 0.90 [facility] Eosinophils [#/volume] in Blood by Automated count 0.00 10^3/uL 0.00 - 0.70 [facility] Basophils [#/volume] in Blood by Automated count 0.02 10^3/uL 0.00 - 0.20 [facility] #IG 0.35 10^3/uL 0.00 - 0.10 H [facility] #NRBC 0.02 10^3/uL 0.00 - 0.00 [facility] ospital MANUAL DIFF SEE BELOW [facility] ital Segmented neutrophils/100 leukocytes in Blood by Manual count 73 % 37 - 80 [facility] BAND 0 % 0 - 5 [facility] al %LYMPH 16 % 25 - 40 L [facility] al %MONO 11 % 3 - 8 [facility] %EOS 0 % 0 - 7 [facility] 0 RBC MORPH NOT INDICATED [facility] Ho spital ID Date Data Source [id number] 12/23/2020 08:49:00 AM EST [facility] Name Value Range Interpretation Code Description Data Maura rce(s) Supporting Document(s) COMPREHENSIVE METABOLIC PANEL [facility] COMPREHENSIVE METABOLIC PANEL Sodium [Moles/volume] in Serum or Plasma 136 mEq/L 134 - 153 [facility] Potassium [Moles/volume] in Serum or Plasma 4.8 mEq/L 3.6 - 5.0 [facility] Chloride [Moles/volume] in Serum or Plasma 98 mEq/L 98 - 107 [facility] Carbon dioxide, total [Moles/volume] in Serum or Plasma 29 MEQ/L 22 - 30 [facility] Glucose [Mass/volume] in Serum or Plasma 147 MG/DL 70 - 99 H [facility] BUN 21 MG/DL 7 - 21 [facility] Creatinine [Mass/volume] in Serum or Plasma 0.8 MG/DL 0.7 - 1.5 [facility] BUN/CREAT 26 8 - 27 [facility] Protein [Mass/volume] in Serum or Plasma 6.2 G/DL 6.3 - 8.2 L [facility] Albumin [Mass/volume] in Serum or Plasma 3.4 G/DL 3.9 - 5.0 L [facility] Globulin [Mass/volume] in Serum by calculation 2.8 GM/DL 2.4 - 3.2 [facility] A/G RATIO 1.2 0.8 - 2.0 [facility] Calcium [Mass/volume] in Serum or Plasma 8.3 MG/DL 8.4 - 10.2 L [facility] Bilirubin.total [Mass/volume] in Serum or Plasma <0.7 MG/DL 0.2 - 1.3 [facility] Alkaline phosphatase [Enzymatic activity/volume] in Serum or Plasma 102 U/L 38 - 126 [facility] Aspartate aminotransferase [Enzymatic activity/volume] in Serum or Plasma 47 U/L 5 - 40 H [facility] Alanine aminotransferase [Enzymatic activity/volume] in Seru m or Plasma 64 U/L 7 - 56 H [facility] Anion gap 3 in Serum or Plasma 9.0 mmol/L 8.0 - 16.0 [facility] AGE 55 yrs [facility] al NON-AA GFR >60 mL/min [facility] ital AFR AMER GFR >60 mL/min [facility] Ho spital Male GFR In terprentation 20-49 [...] >32 mL/min Normal ID Date Data Source [id number] 12/23/2020 08:34:00 AM EST [facility] Name Value Range Interpretation Code Description Data Maura rce(s) Supporting Document(s) Magnesium [Mass/volume] in Serum or Plasma 1.7 MG/DL 1.7 - 2.2 [facility] ID Date Data Source [id number] 12/22/2020 02:04:00 PM EST [address] [place] [address] RESPIRATORY CARE REPORT ==== ---------NAME------- NUMBER SEX AGE ADMIT DISC. XRAY# F/C CYNDY Daniels [id number] F 55 12/20/20 [id number] B1 I/P DATE OF : 1965 M/R# [id number] PH#: [phone] CCU4 LOCATION: EMERGENCY DEPT EKG [id number] COMPL ETE:12/21/20 08:36 M [id number] PHYSICIAN: KIM MENDEZ Name Value Range Interpretation Code Description Data Maura rce(s) Supporting Document(s) ID Date Data Source [id number] 12/22/2020 06:49:00 AM EST [facility] ([facility]) Name Value Range Interpretation Code Description Data Maura rce(s) Supporting Document(s) Magnesium [Mass/volume] in Serum or Plasma 1.8 mg/dL 1.7-2.2 [facility] ([facility]) ID Date Data Source [id number] 12/22/2020 06:49:00 AM EST [facility] ([facility]varez [...] >32 mL/min Normal ID Date Data Source [id number] 12/22/2020 06:49:00 AM EST [facility] (Osmel Alvarez [...] (Osmel Alvarez MD) ID Date Data Source [id number] 12/22/2020 07:48:00 AM [facility] Name Value Range Interpretation Code Description Data Marua rce(s) Supporting Document(s) Magnesium [Mass/volume] in Serum or Plasma 1.8 MG/DL 1.7 - 2.2 [facility] ID Date Data Source [id number] 12/22/2020 07:48:00 AM [facility] Name Value Range Interpretation Code Description Data Maura rce(s) Supporting Document(s) COMPREHENSIVE METABOLIC PANEL [facility] COMPREHENSIVE METABOLIC PANEL Sodium [Moles/volume] in Serum or Plasma 133 mEq/L 134 - 153 L [facility] Potassium [Moles/volume] in Serum or Plasma 5.0 mEq/L 3.6 - 5.0 [facility] Chloride [Moles/volume] in Serum or Plasma 98 mEq/L 98 - 107 [facility] Carbon dioxide, total [Moles/volume] in Serum or Plasma 30 MEQ/L 22 - 30 [facility] Glucose [Mass/volume] in Serum or Plasma 147 MG/DL 70 - 99 H [facility] BUN 19 MG/DL 7 - 21 [facility] Creatinine [Mass/volume] in Serum or Plasma 0.8 MG/DL 0.7 - 1.5 [facility] BUN/CREAT 24 8 - 27 [facility] Protein [Mass/volume] in Serum or Plasma 6.1 G/DL 6.3 - 8.2 L [facility] Albumin [Mass/volume] in Serum or Plasma 3.2 G/DL 3.9 - 5.0 L [facility] Globulin [Mass/volume] in Serum by calculation 2.9 GM/DL 2.4 - 3.2 [facility] A/G RATIO 1.1 0.8 - 2.0 [facility] Calcium [Mass/volume] in Serum or Plasma 8.5 MG/DL 8.4 - 10.2 [facility] Bilirubin.total [Mass/volume] in Serum or Plasma <0.7 MG/DL 0.2 - 1.3 [facility] Alkaline phosphatase [Enzymatic activity/volume] in Serum or Plasma 106 U/L 38 - 126 [facility] Aspartate aminotransferase [Enzymatic activity/volume] in Serum or Plasma 44 U/L 5 - 40 H [facility] Alanine aminotransferase [Enzymatic activity/volume] in Seru m or Plasma 40 U/L 7 - 56 [facility] Anion gap 3 in Serum or Plasma 5.0 mmol/L 8.0 - 16.0 L [facility] AGE 55 yrs [facility] NON-AA GFR >60 mL/min [facility] ital AFR AMER GFR >60 mL/min [facility] Male GFR In terprentation 20-49 [...] >32 mL/min Normal ID Date Data Source [id number] 12/22/2020 07:47:00 AM EST [facility] Name Value Range Interpretation Code Description Data Maura rce(s) Supporting Document(s) CBC W/AUTOMATED DIFF [facility] COMPLETE BLOOD COUNT Leukocytes [#/volume] in Blood by Automated count 3.9 10^3/uL 4.2 - 1 1.0 L [facility] Erythrocytes [#/volume] in Blood by Automated count 2.64 10^6/uL 4. 20 - 5.40 L [facility] Hemoglobin [Mass/volume] in Blood 9.0 g/dL 12.0 - 16.0 L [facility] Hematocrit [Volume Fraction] of Blood by Automated count 26.6 % 3 7.0 - 47.0 L [facility] Erythrocyte mean corpuscular volume [Entitic volume] b y Automated count 100.8 fL 81.0 - 101 [facility] Erythrocyte mean corpuscular hemoglobin [Entitic mass] by Automated count 34.1 pg 27.0 - 34.0 H [facility] Erythrocyte mean corpuscular hemoglobin concentration [Mass/volume] by Automated count 33.8 g/dL 31.0 - 36.0 [facility] Erythrocyte distribution width [Ratio] by Automated count 14.1 % 11.5 - 14.5 [facility] Platelets [#/volume] in Blood by Automated count 221 10^3/uL 150 - 45 0 [facility] Platelet mean volume [Entitic volume] in Blood by Automated count 8.9 fL 7.4 - 10.4 [facility] Neutrophils/100 leukocytes in Blood by Automated count 71.5 % 37. 0 - 80.0 [facility] Lymphocytes/100 leukocytes in Blood by Manual count 10.3 % 25.0 - 40.0 L [facility] Monocytes/100 leukocytes in Blood by Automated count 11.8 % 3.0 - 8.0 H [facility] Eosinophils/100 leukocytes in Blood by Automated count 0.0 % 0.0 - 7.0 [facility] Basophils/100 leukocytes in Blood by Automated count 0.0 % 0.0 - 2.5 [facility] %IG 6.4 % 0.0 - 0.0 [facility] %NRBC 0.0 % 0.0 - 0.0 [facility] Neutrophils [#/volume] in Blood by Automated count 2.78 10^3/uL 2.00 - 6.90 [facility] Lymphocytes [#/volume] in Blood by Automated count 0.40 10^3/uL 0.60 - 3.40 L [facility] Monocytes [#/volume] in Blood by Automated count 0.46 10^3/uL 0.00 - 0.90 [facility] Eosinophils [#/volume] in Blood by Automated count 0.00 10^3/uL 0.00 - 0.70 [facility] Basophils [#/volume] in Blood by Automated count 0.00 10^3/uL 0.00 - 0.20 [facility] #IG 0.25 10^3/uL 0.00 - 0.10 H [facility] #NRBC 0.00 10^3/uL 0.00 - 0.00 [facility] ospital MANUAL DIFF SEE BELOW [facility] ital Segmented neutrophils/100 leukocytes in Blood by Manual count 86 % 37 - 80 H [facility] %LYMPH 8 % 25 - 40 L [facility] al %MONO 6 % 3 - 8 [facility] Nucleated erythrocytes/100 erythrocytes in Blood by Manual count 1 % [facility] RBC MORPH NOT INDICATED [facility] ID Date Data Source [id number] 12/21/2020 12:16:00 PM EST [facility] [address] [place] [address] RESPIRATORY CARE REPORT ==== ---------NAME------- NUMBER SEX AGE ADMIT DISC. XRAY# F/C CYNDY Daniels [id number] F 55 12/20/20 [id number] B1 I/P DATE OF : 1965 M/R# [id number] #: [id number] CCU4 LOCATION: EMERGENCY DEPT EKG [id number] COMPL ETE:12/20/20 14:53 [facility] [id number] PHYSICIAN: KIM VANESSA SWATSWORTH Name Value Range Interpretation Code Description Data Maura e(s) Supporting Document(s) ID Date Data Source [id number] 12/21/2020 09:42:00 AM EST [facility] [address] [place] [address] PHONE: [phone] FAX: [phone] Name .................. : JUANITO Daniels Acct Number.................. : [id number] ROOM. ................. : CCU4 MR Number ................... : [id number] Stay type ............. : I/P Discharge Date......... ... : Admit Date ......... : 12/20/20 Admit Phys .................... : KIM VANESSA Date of ....... : 1965 Family Phys ................... : SEQUEIRA Phone .................. : [phone] Age ................................ : 55 Film# .................. .:[id number] Sex ................................. : F Unsigned transcriptions are preliminary reports and do not represent a medical or legal document CT THORAX W/O CONTRAST [id number] COMPLETE:12/20/20 19:15 KATINA 4511 Reason(s): CHF CT [...] imperative reconstructive techniques. Page 1 of 2 [place] [address] PHONE: [phone] FAX: [phone] Name .................. : JUANITO Daniels Acct Number.................. : [id number] ROOM. ................. : CCU4 MR Number ................... : [id number] Stay type ............. : I/P Discharge Date......... ... : Admit Date ......... : 12/20/20 Admit Phys .................... : KIM MENDEZ Date of ....... : 1965 Family Phys ................... : SEQUEIRA Phone .................. : [phone] Age ................................ : 55 Film# .................. .:[id number] Sex ................................. : F Unsigned transcriptions are preliminary reports and do not represent a medical or legal document CT THORAX W/O CONTRAST [id number] COMPLETE:12/20/20 19:15 KATINA 4511 Reason(s): CHF CT dose: 550 mGycm Electronically Reviewed and Signed By Elier Rodríguez MD , 12/21/20 09:42, AML Transcribe Initials: REYES , Transcribe Date: 12/21/20 01:31, Dictation Date: Copy for: 002 [facility] Copy for: 710 MED REC Page 2 of 2 Name Value Range Interpretation Code Description Data Maura rce(s) Supporting Document(s) ID Date Data Source [id number] 12/21/2020 05:45:00 AM EST [facility] (Osmel Alvarez MD) Name Value Range Interpretation Code Description Data Maura rce(s) Supporting Document(s) Magnesium [Mass/volume] in Serum or Plasma 2.1 mg/dL 1.7-2.2 [facility] (Osmel Alvarez MD) ID Date Data Source [id number] 12/21/2020 05:45:00 AM EST [facility] (Osmel Alvarez [...] (Osmel Alvarez MD) ID Date Data Source [id number] 12/21/2020 05:45:00 AM EST [facility] (Osmel Alvarez MD) Name Value Range Interpretation Code Description Data Maura rce(s) Supporting Document(s) Cobalamin (Vitamin B12) [Mass/volume] in Serum or Plasma 857 pg/mL 2 32-1245 [facility] (Osmel Alvarez MD) Iron [Mass/volume] in Serum or Plasma 50 ug/dL 42-135 [facility] (Osmel Alvarez MD) ID Date Data Source [id number] 12/21/2020 05:45:00 AM EST [facility] (Osmel Alvarez [...] g/dL 6 .3-8.2 Below low normal [facility] (Omsel Alvarez MD) [...] >32 mL/min Normal ID Date Data Source [id number] 12/21/2020 10:24:00 AM [facility] Name Value Range Interpretation Code Description Data Maura rce(s) Supporting Document(s) Cobalamin (Vitamin B12) [Mass/volume] in Serum or Plasma 857 PG/ML 232 - 1245 [facility] ID Date Data Source [id number] 12/21/2020 10:12:00 AM [facility] Name Value Range Interpretation Code Description Data Maura rce(s) Supporting Document(s) Iron [Mass/volume] in Serum or Plasma 50 UG/DL 42 - 135 [facility] ID Date Data Source [id number] 12/21/2020 07:03:00 AM [facility] Name Value Range Interpretation Code Description Data Maura rce(s) Supporting Document(s) CBC W/AUTOMATED DIFF [facility] COMPLETE BLOOD COUNT Leukocytes [#/volume] in Blood by Automated count 4.2 10^3/uL 4.2 - 1 1.0 [facility] Erythrocytes [#/volume] in Blood by Automated count 2.73 10^6/uL 4. 20 - 5.40 L [facility] Hemoglobin [Mass/volume] in Blood 9.4 g/dL 12.0 - 16.0 L [facility] Hematocrit [Volume Fraction] of Blood by Automated count 27.6 % 3 7.0 - 47.0 L [facility] Erythrocyte mean corpuscular volume [Entitic volume] b y Automated count 101.1 fL 81.0 - 101 H [facility] Erythrocyte mean corpuscular hemoglobin [Entitic mass] by Automated count 34.4 pg 27.0 - 34.0 H [facility] Erythrocyte mean corpuscular hemoglobin concentration [Mass/volume] by Automated count 34.1 g/dL 31.0 - 36.0 [facility] Erythrocyte distribution width [Ratio] by Automated count 14.3 % 11.5 - 14.5 [facility] Platelets [#/volume] in Blood by Automated count 239 10^3/uL 150 - 45 0 [facility] Platelet mean volume [Entitic volume] in Blood by Automated count 8.8 fL 7.4 - 10.4 [facility] Neutrophils/100 leukocytes in Blood by Automated count 84.6 % 37. 0 - 80.0 H [facility] Lymphocytes/100 leukocytes in Blood by Manual count 8.8 % 25.0 - 40.0 L [facility] Monocytes/100 leukocytes in Blood by Automated count 5.2 % 3.0 - 8.0 [facility] Eosinophils/100 leukocytes in Blood by Automated count 0.0 % 0.0 - 7.0 [facility] 0.0 %IG 1.4 % 0.0 - 0.0 [facility] %NRBC 0.0 % 0.0 - 0.0 [facility] Neutrophils [#/volume] in Blood by Automated count 3.57 10^3/uL 2.00 - 6.90 [facility] Lymphocytes [#/volume] in Blood by Automated count 0.37 10^3/uL 0.60 - 3.40 L [facility] Monocytes [#/volume] in Blood by Automated count 0.22 10^3/uL 0.00 - 0.90 [facility] Eosinophils [#/volume] in Blood by Automated count 0.00 10^3/uL 0.00 - 0.70 [facility] Basophils [#/volume] in Blood by Automated count 0.00 10^3/uL 0.00 - 0.20 [facility] #IG 0.06 10^3/uL 0.00 - 0.10 [facility] #NRBC 0.00 10^3/uL 0.00 - 0.00 [facility] MANUAL DIFF SEE BELOW [facility] ital Segmented neutrophils/100 leukocytes in Blood by Manual count 90 % 37 - 80 H [facility] BAND 0 % 0 - 5 [facility] %LYMPH 8 % 25 - 40 L [facility] %MONO 2 % 3 - 8 L [facility] %EOS 0 % 0 - 7 [facility] 0 RBC MORPH NOT INDICATED [facility] ID Date Data Source [id number] 12/21/2020 07:01:00 AM EST [facility] Name Value Range Interpretation Code Description Data Maura rce(s) Supporting Document(s) COMPREHENSIVE METABOLIC PANEL [facility] COMPREHENSIVE METABOLIC PANEL Sodium [Moles/volume] in Serum or Plasma 135 mEq/L 134 - 153 [facility] Potassium [Moles/volume] in Serum or Plasma 4.9 mEq/L 3.6 - 5.0 [facility] Chloride [Moles/volume] in Serum or Plasma 98 mEq/L 98 - 107 [facility] Carbon dioxide, total [Moles/volume] in Serum or Plasma 29 MEQ/L 22 - 30 [facility] Glucose [Mass/volume] in Serum or Plasma 144 MG/DL 70 - 99 H [facility] BUN 15 MG/DL 7 - 21 [facility] Creatinine [Mass/volume] in Serum or Plasma 0.8 MG/DL 0.7 - 1.5 [facility] BUN/CREAT 19 8 - 27 [facility] Protein [Mass/volume] in Serum or Plasma 5.6 G/DL 6.3 - 8.2 L [facility] Albumin [Mass/volume] in Serum or Plasma 3.2 G/DL 3.9 - 5.0 L [facility] Globulin [Mass/volume] in Serum by calculation 2.4 GM/DL 2.4 - 3.2 [facility] A/G RATIO 1.3 0.8 - 2.0 [facility] Calcium [Mass/volume] in Serum or Plasma 8.7 MG/DL 8.4 - 10.2 [facility] Bilirubin.total [Mass/volume] in Serum or Plasma <0.7 MG/DL 0.2 - 1.3 [facility] Alkaline phosphatase [Enzymatic activity/volume] in Serum or Plasma 102 U/L 38 - 126 [facility] Aspartate aminotransferase [Enzymatic activity/volume] in Serum or Plasma 19 U/L 5 - 40 [facility] Alanine aminotransferase [Enzymatic activity/volume] in Seru m or Plasma 17 U/L 7 - 56 [facility] Anion gap 3 in Serum or Plasma 8.0 mmol/L 8.0 - 16.0 [facility] AGE 55 yrs [facility] NON-AA GFR >60 mL/min [facility] ital AFR AMER GFR >60 mL/min [facility] Male GFR In terprentation 20-49 [...] >32 mL/min Normal ID Date Data Source [id number] 12/21/2020 06:56:00 AM EST [facility] Name Value Range Interpretation Code Description Data Maura rce(s) Supporting Document(s) Magnesium [Mass/volume] in Serum or Plasma 2.1 MG/DL 1.7 - 2.2 [facility] ID Date Data Source [id number] 12/20/2020 06:00:00 PM EST [facility] (Osmel Alvarez MD) Name Value Range Interpretation Code Description Data Maura rce(s) Supporting Document(s) Laboratory test finding (navigational concept) Laboratory test result [facility] (Osmel Alvarez MD) CORRECTE D REPORT _CULTURE SPUTUM_ ^$[id number] ^^[id number] $$[id number] $$[id number] $$430373 $$876521 $$418896 $$415458 $$190485 ^^963982 $$[id number] ^^691658 $$687891 $$118159 $$418214 $$[id number] $$[id number] REPORTED DATE/TIME: 12/24/2020 15:05 Culture: CULTURE SPUTUM Status: Final White Blood Cells: P1 Few Epithelial Cells: P1 Few Result 1: P1 Rare gram positive cocci in pairs, chains, and clusters -- Continued on next page -- Patient: JUANITO Daniels Order: [id number] Page 2 Culture: CULTURE SPUTUM Status: Final Gram Stain Evaluation: P1 This specimen is of good quality and is acceptable for routine bacterial culture. Lower Respiratory Culture: P1 Routine respiratory jerome Previous result entered on 12/23/2020 14:49 ET Routine respiratory jerome P1 Test performed by: [facility] #: [id number] [address] [phone] [facility] [address] Torch Shearer : Yonas Rascon MD NPI #: [employer] : 12/22/20.1601.XMT.SENT REF 12/23/20.1714.XMT.SENT REF 12/23/20.1714. [facility] via mode m FOLLOWING RESULTS REPORTED IN ERROR REPORTED DATE/TIME: 12/23/2020 15:06 Culture: CULTURE SPUTUM Status: Prelim Culture: CULTURE SPUTUM Status: Prelim ID Date Data Source [id number] 12/20/2020 06:00:00 PM EST [facility] (Osmel Alvarez MD) Name Value Range Interpretation Code Description Data Maura rce(s) Supporting Document(s) Laboratory test finding (navigational concept) Laboratory test result [facility] (Osmel Alvarez MD) ID Date Data Source [id number] 12/20/2020 06:00:00 PM EST [facility] (Osmel Alvarez [...] SOURCE: Clean Catch ID Date Data Source [id number] 12/24/2020 04:08:00 PM EST [facility] Name Value Range Interpretation Code Description Data Maura rce(s) Supporting Document(s) CULTURE [facility] CORRECTE D REPORT _CULTURE SPUTUM_$$[id number]$$[id number]$$[id number]$$[id number]$$[id number]$$200519$$645335$$593339$$914562$ $144337$$895915$$617462$$[id number] DATE/TIME: 12/24/2020 15:05Culture: CULTURE SPUTUM Status: FinalWhite Blood Cells: [id number] ithelial Cells: [id number] 1: P1Rare gram positive cocci in pairs, chains, and clusters -- Continued on next page --Patient: JUANITO Daniels Order: [id number] Page 2Culture: CULTURE SPUTUM Status: Final ====Gram Stain Evaluation: P1This specimen is of good quality and is acceptable for routinebacterial culture.Lower Respiratory Culture: [id number] respiratory jerome Previous result entered on 12/23/2020 14:49 ET Routine respiratory floraP1 Test performed by: [facility] #: [id number] [address] [place] [id number] [facility] [address]Medical Director : Yonas Rascon MD NPI #:[employer] : 12/22/20.1601.XMT.SENT REF 12/23/20.1714.XMT.SENT REF 12/23/20.1714. .to [facility] modem FOLLOWING RESULTS REPORTED IN ERROR REPORTED DATE/TIME: 12/23/2020 15:06Culture: CULTURE SPUTUM Status: PrelimCulture: CULTURE SPUTUM Status: Prelim CORRECT FINAL REPORT [facility] ID Date Data Source [id number] 12/20/2020 06:58:00 PM EST [facility] Name Value Range Interpretation Code Description Data Maura rce(s) Supporting Document(s) [facility] R [facility] COLOR yellow NORMAL: Yellow [facility] CLARITY clear NORMAL: Clear [facility] Specific gravity of Urine by Test strip 1.015 1.001 - 1.030 [facility] pH 8 5 - 9 [facility] Glucose [Mass/volume] in Urine by Test strip NORM NORMAL: Negat [facility] Bilirubin.total [Presence] in Urine by Test strip NEG NORMAL: Negative [facility] Ketones [Presence] in Urine by Test strip 15 NORMAL: Negative [facility] Protein [Mass/volume] in Urine by Test strip 15 NORMAL: Negat [facility] Nitrite [Presence] in Urine by Test strip NEG NORMAL: Negative [facility] BLOOD NEG NORMAL: Negative [facility] Leukocyte esterase [Presence] in Urine by Test strip NEG SHAUNA L: Negative [facility] Urobilinogen [Mass/volume] in Urine by Test strip NOR less lupe n 1.0 mg/dL [facility] MICROSCOPIC See Below [facility] ital WBC 1 - 3 NORMAL: NONE SEEN [facility] Erythrocytes [#/volume] in Urine by Test strip 0 - 1 NORMAL: NON E SEEN [facility] EPITHELIAL FEW NORMAL: NONE SEEN [facility] Crystals [type] in Urine sediment by Light microscopy See Below [facility] TRIPLE PHOS 3+ NORMAL: NONE SEEN A [facility] ID Date Data Source [id number] 12/20/2020 02:00:00 PM EST [facility] (Osmel Alvarez MD) Name Value Range Interpretation Code Description Data Maura rce(s) Supporting Document(s) Coronavirus Covid-19 Laboratory test result [facility] (Osmel Alvarez MD) First test? N Employed in healthcare? N ~Symptomatic as defined by CDC? Y Hospitalized? Y~Reside ID Date Data Source [id number] 12/20/2020 02:00:00 PM EST [facility] Name Value Range Interpretation Code Description Data Maura rce(s) Supporting Document(s) SARS coronavirus 2 RNA Not Detected [facility] This lab was ordered by [facility] and reported by [facility]. ID Date Data Source [id number] 12/22/2020 08:49:00 PM EST [facility] Name Value Range Interpretation Code Description Data Maura rce(s) Supporting Document(s) SARS-CoV-2, DAR Not Detected Not Detected [facility] This nucleic acid amplification test was developed and its performancecharacteristics determined by [employer]. Nucleic acidamplification tests include RT-PCR and TMA. [...] in this assay. ID Date Data Source [id number] 12/25/2020 06:20:00 PM EST [facility] Name Value Range Interpretation Code Description Data Maura rce(s) Supporting Document(s) Bacteria identified in Blood by Culture [facility] NO GROWTH AFTER 5 DAYS ID Date Data Source [id number] 12/20/2020 01:45:00 PM EST [facility] (Osmel Alvarez MD) Name Value Range Interpretation Code Description Data Maura rce(s) Supporting Document(s) Laboratory test finding (navigational concept) Laboratory test result [facility] (Osmel Alvarez MD) _CULTURE BLOOD_ { PRELIM TEST PERFORMED AT [address] [address] CLIA# [id number] SEE SCANNED REPORT ID Date Data Source [id number] 12/26/2020 12:56:00 PM [facility] Name Value Range Interpretation Code Description Data Maura rce(s) Supporting Document(s) [facility] BLOOD [facility] _CULTURE BLOOD_{ PRELIM TEST PERFORMED AT [address] [address] CLIA# [id number] SEE SCANNED REPORT ID Date Data Source [id number] 12/20/2020 01:39:00 PM EST [facility] (Osmel Alvarez MD) Name Value Range Interpretation Code Description Data Maura rce(s) Supporting Document(s) Laboratory test finding (navigational concept) Laboratory test result [facility] (Osmel Alvarez MD) _CULTURE BLOOD_ { PRELIM TEST PERFORMED AT [address] [address] CLIA# [id number] SEE SCANNED REPORT ID Date Data Source [id number] 12/26/2020 12:56:00 PM [facility] Name Value Range Interpretation Code Description Data Maura rce(s) Supporting Document(s) [facility] _CULTURE BLOOD_{ PRELIM TEST PERFORMED AT [address] [address] CLIA# [id number] SEE SCANNED REPORT ID Date Data Source [id number] 12/20/2020 11:52:00 AM EST [facility] (Osmel Alvarez [...] CDC?: Y~Hospitalized?: N ID Date Data Source [id number] 12/20/2020 11:52:00 AM EST [facility] Name Value Range Interpretation Code Description Data Maura rce(s) Supporting Document(s) COVID19 Case rprt NOT DETECTED [facility] This lab was ordered by [facility] and reported by [facility]. ID Date Data Source [id number] 12/20/2020 12:44:00 PM EST [facility] NOT DETECTEDNOT DETECTED{ PROC EDURAL [...] rce(s) Supporting Document(s) ID Date Data Source [id number] 12/20/2020 12:39:00 PM [facility] Name Value Range Interpretation Code Description Data Maura rce(s) Supporting Document(s) Influenza virus A Ag [Presence] in Nasopharynx by Immunoassa y NEGATIVE NORMAL: NEGATIVE [facility] Influenza virus B Ag [Presence] in Nasopharynx by Immunoassa y NEGATIVE NORMAL: NEGATIVE [facility] NEGATIVENEGATIVE PROCEDURAL CO NTROL VALID [...] other patient managementdecisions. ID Date Data Source [id number] 12/20/2020 01:03:00 PM [facility] Name Value Range Interpretation Code Description Data Maura rce(s) Supporting Document(s) Fibrin D-dimer FEU [Mass/volume] in Platelet poor plasma 2.90 ug /mL 0.27 - 0.50 H [facility] ID Date Data Source [id number] 12/20/2020 12:54:00 PM [facility] Name Value Range Interpretation Code Description Data Maura rce(s) Supporting Document(s) TROPONIN T <0.01 NG/ML 0.00 - 0.10 [facility]ital TROPONIN T0.1 ng/ml Recommended as the c linical threshold value forTroponin T. ID Date Data Source [id number] 12/20/2020 12:49:00 PM [facility] Name Value Range Interpretation Code Description Data Maura e(s) Supporting Document(s) CBC W/AUTOMATED DIFF [facility] COMPLETE BLOOD COUNT Leukocytes [#/volume] in Blood by Automated count 6.0 10^3/uL 4.2 - 1 1.0 [facility] Erythrocytes [#/volume] in Blood by Automated count 3.00 10^6/uL 4. 20 - 5.40 L [facility] Hemoglobin [Mass/volume] in Blood 10.3 g/dL 12.0 - 16.0 L [facility] Hematocrit [Volume Fraction] of Blood by Automated count 30.9 % 3 7.0 - 47.0 L [facility] Erythrocyte mean corpuscular volume [Entitic volume] b y Automated count 103.0 fL 81.0 - 101 H [facility] Erythrocyte mean corpuscular hemoglobin [Entitic mass] by Automated count 34.3 pg 27.0 - 34.0 H [facility] Erythrocyte mean corpuscular hemoglobin concentration [Mass/volume] by Automated count 33.3 g/dL 31.0 - 36.0 [facility] Erythrocyte distribution width [Ratio] by Automated count 14.7 % 11.5 - 14.5 H [facility] Platelets [#/volume] in Blood by Automated count 302 10^3/uL 150 - 45 0 [facility] Platelet mean volume [Entitic volume] in Blood by Automated count 8.9 fL 7.4 - 10.4 [facility] Neutrophils/100 leukocytes in Blood by Automated count 78.5 % 37. 0 - 80.0 [facility] Lymphocytes/100 leukocytes in Blood by Manual count 6.6 % 25.0 - 40.0 L [facility] Monocytes/100 leukocytes in Blood by Automated count 3.6 % 3.0 - 8.0 [facility] Eosinophils/100 leukocytes in Blood by Automated count 10.8 % 0.0 - 7.0 H [facility] Basophils/100 leukocytes in Blood by Automated count 0.2 % 0.0 - 2.5 [facility] %IG 0.3 % 0.0 - [facility].0 [facility] % 0.0 - 0.0 [facility] al Neutrophils [#/volume] in Blood by Automated count 4.73 10^3/uL 2.00 - 6.90 [facility] Lymphocytes [#/volume] in Blood by Automated count 0.40 10^3/uL 0.60 - 3.40 L [facility] Monocytes [#/volume] in Blood by Automated count 0.22 10^3/uL 0.00 - 0.90 [facility] Eosinophils [#/volume] in Blood by Automated count 0.65 10^3/uL 0.00 - 0.70 [facility] Basophils [#/volume] in Blood by Automated count 0.01 10^3/uL 0.00 - 0.20 [facility] #IG 0.02 10^3/uL 0.00 - 0.10 [facility] ospital #NRBC 0.00 10^3/uL 0.00 - 0.00 [facility] MANUAL DIFF NOT INDICATED [facility] RBC MORPH NOT INDICATED [facility] spital ID Date Data Source [id number] 12/20/2020 12:46:00 PM EST [facility] Name Value Range Interpretation Code Description Data Maura rce(s) Supporting Document(s) COMPREHENSIVE METABOLIC PANEL [facility] COMPREHENSIVE METABOLIC PANEL Sodium [Moles/volume] in Serum or Plasma 133 mEq/L 134 - 153 L [facility] Potassium [Moles/volume] in Serum or Plasma 4.4 mEq/L 3.6 - 5.0 [facility] Chloride [Moles/volume] in Serum or Plasma 93 mEq/L 98 - 107 L [facility] Carbon dioxide, total [Moles/volume] in Serum or Plasma 33 MEQ/L 22 - 30 H [facility] Glucose [Mass/volume] in Serum or Plasma 102 MG/DL 70 - 99 H [facility] BUN 14 MG/DL 7 - 21 [facility] al Creatinine [Mass/volume] in Serum or Plasma 0.9 MG/DL 0.7 - 1.5 [facility] BUN/CREAT 16 8 - 27 [facility] Protein [Mass/volume] in Serum or Plasma 7.2 G/DL 6.3 - 8.2 [facility] Albumin [Mass/volume] in Serum or Plasma 3.4 G/DL 3.9 - 5.0 L [facility] Globulin [Mass/volume] in Serum by calculation 3.8 GM/DL 2.4 - 3.2 H [facility] A/G RATIO 0.9 0.8 - 2.0 [facility] Calcium [Mass/volume] in Serum or Plasma 8.9 MG/DL 8.4 - 10.2 [facility] Bilirubin.total [Mass/volume] in Serum or Plasma <0.7 MG/DL 0.2 - 1.3 [facility] Alkaline phosphatase [Enzymatic activity/volume] in Serum or Plasma 104 U/L 38 - 126 [facility] Aspartate aminotransferase [Enzymatic activity/volume] in Serum or Plasma 22 U/L 5 - 40 [facility] Alanine aminotransferase [Enzymatic activity/volume] in Seru m or Plasma 16 U/L 7 - 56 [facility] Anion gap 3 in Serum or Plasma 7.0 mmol/L 8.0 - 16.0 L [facility] AGE 55 yrs [facility] al NON-AA GFR >60 mL/min [facility] ital AFR AMER GFR >60 mL/min [facility] Ho spital Male GFR In terprentation 20-49 [...] >32 mL/min Normal ID Date Data Source [id number] 12/20/2020 12:46:00 PM [facility] Name Value Range Interpretation Code Description Data Maura rce(s) Supporting Document(s) BNP 755 PG/ML 0 - 125 H [facility] Hospit al ID Date Data Source [id number] 12/20/2020 12:18:00 PM [facility] Name Value Range Interpretation Code Description Data Maura rce(s) Supporting Document(s) Lactate [Moles/volume] in Serum or Plasma 1.9 MMOL/L 0.2 - 2.2 [facility] ID Date Data Source [id number] 12/11/2020 10:18:00 [place] [address] PHONE: [phone] FAX: [phone] Name .................. : JUANITO Daniels Acct Number.................. : [id number] ROOM. ................. : Number ................... : [id number] Stay type ............. : O/P Discharge Date......... ... : 12/08/20 Admit Date ......... : 12/08/20 Admit Phys .................... : MELANY NAVARRO Date of ....... : 1965 Family Phys ................... : SEQUEIRA Phone .................. : [phone] Age ................................ : 55 Film# .................. .:[id number] Sex ................................. : F Unsigned transcriptions are preliminary reports and do not represent a medical or legal document CHEST 2 VIEWS [id number] COMPLETE:12/08/20 12:44 KBO 0913 (REASON FOR CHEST: COUGH CHEST X-RAY: 2-VIEWS COMPARISON: 08/01/20 CLINICAL HISTORY: Cough. FINDINGS: There is continued left upper lobe and left perihilar mass, unchanged. The right lung and base of the left lung are clear. 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 Status post fusion of the thoracic spine using bilateral Gonzalez rods. IMPRESSION: Stable examination with left upper lobe and left perihilar mass. Electronically Reviewed and Signed By Dunog Guerrero MD , 12/11/20 10:18, MRA Transcribe Initials: REYES , Transcribe Date: 12/09/20 00:46, Dictation Date: Copy for: MELANY TAVAREZ via fax Copy for: [facility] REC Page 1 of 1 Name Value Range Interpretation Code Description Data Maura rce(s) Supporting Document(s) ID Date Data Source [id number] 12/04/2020 01:05:00 PM [facility] Patient Name: Chantale Solomon : 1965 Sex: F Pt Unit #: [id number] Location: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 DISCHARGED FROM [facility] ON 11/29/2020. BILATERAL COVID PNEUMONIA. FEELING MUCH [...] exertion Details: FINISHED LEVAQUIN. HAS F/U WITH AGENCY SALES REPRESENTATIVE IN A COUPLE WEEKS. O2 CONTINUOUS AT [...] Acute upper respiratory infection, unspecified SNOMED Code(s): 054033085 Category: Medical Plan - Gail Reyes NP: HAS F/U APPT WITH AGENCY SALES REPRESENTATIVE IN A COUPLE WEEKS.. CONT. CURRENT MEDS. [...] rce(s) Supporting Document(s) ID Date Data Source [id number] 11/28/2020 07:36:00 AM EST [facility] Name Value Range Interpretation Code Description Data Maura rce(s) Supporting Document(s) COMPREHENSIVE METABOLIC PANEL [facility] COMPREHENSIVE METABOLIC PANEL Sodium [Moles/volume] in Serum or Plasma 135 mEq/L 134 - 153 [facility] Potassium [Moles/volume] in Serum or Plasma 5.0 mEq/L 3.6 - 5.0 [facility] Chloride [Moles/volume] in Serum or Plasma 100 mEq/L 98 - 107 [facility] Carbon dioxide, total [Moles/volume] in Serum or Plasma 27 MEQ/L 22 - 30 [facility] Glucose [Mass/volume] in Serum or Plasma 166 MG/DL 70 - 99 H [facility] BUN 21 MG/DL 7 - 21 [facility] al Creatinine [Mass/volume] in Serum or Plasma 0.9 MG/DL 0.7 - 1.5 [facility] BUN/CREAT 23 8 - 27 [facility] Protein [Mass/volume] in Serum or Plasma 6.0 G/DL 6.3 - 8.2 L [facility] Albumin [Mass/volume] in Serum or Plasma 3.5 G/DL 3.9 - 5.0 L [facility] Globulin [Mass/volume] in Serum by calculation 2.5 GM/DL 2.4 - 3.2 [facility] A/G RATIO 1.4 0.8 - 2.0 [facility] Calcium [Mass/volume] in Serum or Plasma 8.3 MG/DL 8.4 - 10.2 L [facility] Bilirubin.total [Mass/volume] in Serum or Plasma <0.7 MG/DL 0.2 - 1.3 [facility] Alkaline phosphatase [Enzymatic activity/volume] in Serum or Plasma 75 U/L 38 - 126 [facility] Aspartate aminotransferase [Enzymatic activity/volume] in Serum or Plasma 21 U/L 5 - 40 [facility] Alanine aminotransferase [Enzymatic activity/volume] in Seru m or Plasma 23 U/L 7 - 56 [facility] Anion gap 3 in Serum or Plasma 8.0 mmol/L 8.0 - 16.0 [facility] AGE 55 yrs [facility] al NON-AA GFR >60 mL/min [facility]osp ital AFR AMER GFR >60 mL/min [facility] Ho spital Male GFR In terprentation 20-49 [...] >32 mL/min Normal ID Date Data Source [id number] 11/28/2020 07:29:00 AM EST [facility] Name Value Range Interpretation Code Description Data Maura rce(s) Supporting Document(s) CBC W/AUTOMATED DIFF [facility] COMPLETE BLOOD COUNT Leukocytes [#/volume] in Blood by Automated count 7.7 10^3/uL 4.2 - 1 1.0 [facility] Erythrocytes [#/volume] in Blood by Automated count 3.29 10^6/uL 4. 20 - 5.40 L [facility] Hemoglobin [Mass/volume] in Blood 11.4 g/dL 12.0 - 16.0 L [facility] Hematocrit [Volume Fraction] of Blood by Automated count 33.8 % 3 7.0 - 47.0 L [facility] Erythrocyte mean corpuscular volume [Entitic volume] b y Automated count 102.7 fL 81.0 - 101 H [facility] Erythrocyte mean corpuscular hemoglobin [Entitic mass] by Automated count 34.7 pg 27.0 - 34.0 H [facility] Erythrocyte mean corpuscular hemoglobin concentration [Mass/volume] by Automated count 33.7 g/dL 31.0 - 36.0 [facility] Erythrocyte distribution width [Ratio] by Automated count 13.3 % 11.5 - 14.5 [facility] Platelets [#/volume] in Blood by Automated count 265 10^3/uL 150 - 45 0 [facility] Platelet mean volume [Entitic volume] in Blood by Automated count 9.8 fL 7.4 - 10.4 [facility] Neutrophils/100 leukocytes in Blood by Automated count 85.6 % 37. 0 - 80.0 H [facility] Lymphocytes/100 leukocytes in Blood by Manual count 5.3 % 25.0 - 40.0 L [facility] Monocytes/100 leukocytes in Blood by Automated count 7.1 % 3.0 - 8.0 [facility] Eosinophils/100 leukocytes in Blood by Automated count 0.0 % 0.0 - 7.0 [facility] Basophils/100 leukocytes in Blood by Automated count 0.3 % 0.0 - 2.5 [facility] %IG 1.7 % 0.0 - 0.0 H [facility] Hospit al %NRBC 0.0 % 0.0 - 0.0 [facility] al Neutrophils [#/volume] in Blood by Automated count 6.60 10^3/uL 2.00 - 6.90 [facility] Lymphocytes [#/volume] in Blood by Automated count 0.41 10^3/uL 0.60 - 3.40 L [facility] Monocytes [#/volume] in Blood by Automated count 0.55 10^3/uL 0.00 - 0.90 [facility] Eosinophils [#/volume] in Blood by Automated count 0.00 10^3/uL 0.00 - 0.70 [facility] Basophils [#/volume] in Blood by Automated count 0.02 10^3/uL 0.00 - 0.20 [facility] #IG 0.13 10^3/uL 0.00 - 0.10 [facility] ospital #NRBC 0.00 10^3/uL 0.00 - 0.00 [facility] MANUAL DIFF NOT INDICATED [facility] RBC MORPH NOT INDICATED [facility] spital ID Date Data Source [id number] 11/27/2020 12:32:00 PM EST [facility] [address] [place] [address] PHONE: [phone] FAX: [phone] Name .................. : JUANITO Daniels Acct Number.................. : [id number] ROOM. ................. : [facility] MR Number ................... : [id number] Stay type ............. : I/P Discharge Date......... ... : Admit Date ......... : 11/24/20 Admit Phys .................... : DOMENIC Date of ....... : 1965 Family Phys ................... : [email or web address] Phone .................. : [phone] Age ................................ : 55 Film# .................. .:[id number] Sex ................................. : F Unsigned transcriptions are preliminary reports and do not represent a medical or legal document CT THORAX W/O CONTRAST [id number] COMPLETE:11/24/20 14:55 RLB 2725 Reason(s): worsening L [...] dose: 560.3 mGycm Page 1 of 2 [facility] [address] [place] [address] PHONE: [phone] FAX: [phone] Name .................. : JUANITO Daniels Acct Number.................. : [id number] ROOM. ................. : CCU1C MR Number ................... :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 recommends hospitalist admission, consulted with hospitalist service DRUMS TEACHER Samy, who will admit pt for further [...] Name Value Range Interpretation Code Description Data [facility] rce(s) Supporting Document(s) ID Date Data Source [id number] 11/24/2020 02:50:00 PM EST [facility] Name Value Range Interpretation Code Description Data [facility](s) Supporting Document(s) COVID19 Case rprt DETECTED [facility] This lab was ordered by [facility] and reported by [facility]. ID Date Data Source [id number] 11/24/2020 03:36:00 PM [facility] DETECTEDDETECTED{ PROCEDURAL C ONTROL VALID KIT LOT # _[id number] 11/24/20.1536.DW . KIT EXP DATE _61-78-69 11/24/20.1536.DW . NORMAL RANGE IS NOT DETECTEDNEGATIVE RESULTS SHOULD BE TREATED PRESUMPTIVE AND, IF INCONSISTENT WITHCLINICAL SIGNS AND SYMPTOMS OR NECESSARY FOR PATIENT MANAGEMENT, SHOULD BETESTED WITH DIFFERENT AUTHORIZED OR CLEARED MOLECULAR TESTS. NEGATIVE RESULTSDO NOT PRECLUDE SARS-CoV-2 INFECTION AND SHOULD NOT BE USED THE SOLE BASISFOR PATIENT MANAGEMENT DECISIONS. Name Value Range Interpretation Code Description [facility] ID Date Data Source [id number] 11/24/2020 01:45:00 PM [facility] Name Value Range Interpretation Code Description Data [facility](s) Supporting Document(s) [facility] COL[facility] yellow NORMAL: Yellow [facility] CLARITY clear NORMAL: Clear [facility] Specific gravity of Urine by Test strip 1.010 1.001 - 1.030 [facility] pH 7 5 - 9 [facility] Glucose [Mass/volume] in Urine by Test strip NORM NORMAL: Negat angie [facility] Bilirubin.total [Presence] in Urine by Test strip NEG NORMAL: Negative [facility] Ketones [Presence] in Urine by Test strip NEG NORMAL: Negative [facility] Protein [Mass/volume] in Urine by Test strip NEG NORMAL: Negat angie [facility] Nitrite [Presence] in Urine by Test strip NEG NORMAL: Negative [facility] BLOOD NEG NORMAL: Negative [facility] Leukocyte esterase [Presence] in Urine by Test strip NEG SHAUNA L: Negative [facility] Urobilinogen [Mass/volume] in Urine by Test strip NOR less lupe n 1.0 mg/dL [facility] MICROSCOPIC Not Indicate [facility] ospital ID Date Data Source [id number] 11/27/2020 02:18:00 PM EST [facility] Name Value Range Interpretation Code Description Data Maura rce(s) Supporting Document(s) CULTURE SPUTUM [facility] ospital _CULTURE SPUTUM_$$[id number]$$[id number]$$[id number]$$[id number]$$[id number]$$[id number]$$[id number]$$[id number]$$[id number]$ $[id number]$$[id number]$$[id number]$$[id number] DATE/TIME: 11/27/2020 13:05Culture: CULTURE SPUTUM Status: FinalWhite Blood Cells: P1None seenEpithelial Cells: U3XcaGaplji 1: P1Rare gram negative rods. Flag: A -- Continued on next page --Patient: JUANITO Daniels Order: [id number] Page 2Culture: CULTURE SPUTUM Status: Final Gram Stain Evaluation: P1This specimen is of good quality and is acceptable for routinebacterial culture.Lower Respiratory Culture: [id number] respiratory jerome Previous result entered on 11/26/2020 16:23 ET Routine respiratory floraFungus present Flag: AScant growthP1 Test performed by: Larry PAULAIA #: [id number] [facility] [id number] [facility] [id number] Director : Yonas Rascon MD NPI #:Vice President [employer] : 11/25/20.1314.XMT.SENT REF 11/27/20.0634.XMT.SENT REF 11/27/20.1418.XMT.SENT REF 12/04/20.0841.XMT.SENT REF ID Date Data Source [id number] 12/02/2020 02:35:00 PM [facility] Value Range Interpretation Code Description Data Maura rce(s) Supporting Document(s) CULTURE BLOOD [facility] spital _CULTURE BLOOD_ TEST [place] [address] CLIA# [id number] SEE SCANNED REPORT{ PRELIM ID Date Data Source [id number] 11/24/2020 12:25:00 PM [facility] Value Range Interpretation Code Description Data Maura rce(s) Supporting Document(s) Influenza virus A Ag [Presence] in Nasopharynx by Immunoassa y NEGATIVE NORMAL: NEGATIVE [facility] Influenza virus B Ag [Presence] in Nasopharynx by Immunoassa y NEGATIVE NORMAL: NEGATIVE [facility] NEGATIVENEGATIVE PROCEDURAL CO NTROL VALID [...] other patient managementdecisions. ID Date Data Source [id number] 11/24/2020 12:41:00 PM [facility] Value Range Interpretation Code Description Data Maura rce(s) Supporting Document(s) Lactate dehydrogenase [Enzymatic activity/volume] in Serum o r Plasma 234 U/L 135 - 214 H [facility] ID Date Data Source [id number] 11/24/2020 12:41:00 PM EST [facility] Name Value Range Interpretation Code Description Data Maura rce(s) Supporting Document(s) COMPREHENSIVE METABOLIC PANEL [facility] COMPREHENSIVE METABOLIC PANEL Sodium [Moles/volume] in Serum or Plasma 134 mEq/L 134 - 153 [facility] Potassium [Moles/volume] in Serum or Plasma 3.9 mEq/L 3.6 - 5.0 [facility] Chloride [Moles/volume] in Serum or Plasma 94 mEq/L 98 - 107 L [facility] Carbon dioxide, total [Moles/volume] in Serum or Plasma 27 MEQ/L 22 - 30 [facility] Glucose [Mass/volume] in Serum or Plasma 104 MG/DL 70 - 99 H [facility] BUN 9 MG/DL 7 - 21 [facility] Creatinine [Mass/volume] in Serum or Plasma 1.0 MG/DL 0.7 - 1.5 [facility] BUN/CREAT 9 8 - 27 [facility] Protein [Mass/volume] in Serum or Plasma 7.6 G/DL 6.3 - 8.2 [facility] Albumin [Mass/volume] in Serum or Plasma 3.9 G/DL 3.9 - 5.0 [facility] Globulin [Mass/volume] in Serum by calculation 3.7 GM/DL 2.4 - 3.2 H [facility] A/G RATIO 1.1 0.8 - 2.0 [facility] Calcium [Mass/volume] in Serum or Plasma 8.6 MG/DL 8.4 - 10.2 [facility] Bilirubin.total [Mass/volume] in Serum or Plasma <0.7 MG/DL 0.2 - 1.3 [facility] Alkaline phosphatase [Enzymatic activity/volume] in Serum or Plasma 107 U/L 38 - 126 [facility] Aspartate aminotransferase [Enzymatic activity/volume] in Serum or Plasma 33 U/L 5 - 40 [facility] Alanine aminotransferase [Enzymatic activity/volume] in Seru m or Plasma 19 U/L 7 - 56 [facility] Anion gap 3 in Serum or Plasma 13.0 mmol/L 8.0 - 16.0 [facility] AGE 55 yrs [facility] NON-AA GFR >60 mL/min [facility] ital AFR AMER GFR >60 mL/min [facility] sp[facility] Male GFR In terprentation 20-49 [...] >32 mL/min Normal ID Date Data Source [id number] 11/24/2020 12:26:00 PM [facility] Name Value Range Interpretation Code Description Data Maura rce(s) Supporting Document(s) BNP 596 PG[facility]ML 0 - [facility] Date Data Source [id number] 11/24/2020 12:25:00 PM [facility] Name Value Range Interpretation Code Description Data Maura rce(s) Supporting Document(s) TROPONIN T <0.01 NG/ML 0.00 - 0.10 [facility] ospital TROPONIN T0.1 ng/ml Recommended as the c linical threshold value forTroponin T. ID Date Data Source [id number] 11/24/2020 11:56:00 AM [facility] Name Value Range Interpretation Code Description Data Maura rce(s) Supporting Document(s) Lactate [Moles/volume] in Serum or Plasma 2.3 MMOL/L 0.2 - 2.2 H [facility] ID Date Data Source [id number] 11/24/2020 11:56:00 AM [facility] Name Value Range Interpretation Code Description Data Maura rce(s) Supporting Document(s) pH of Serum or Plasma 7.37 7.32 - 7.43 [facility] pCO2 V 49.8 mm/HG 38.0 - 51.0 [facility] pO2 V 38.6 mm/HG 30.0 - 55.0 [facility] pital Bicarbonate [Moles/volume] in Venous blood 28.3 meq/L 22.0 - 29.0 [facility] TCO2 V 29.8 meq/L 22.0 - 29.0 H [facility] pital Base excess in Blood by calculation 2.2 -2.0 - 2.0 H [facility] O2 SAT V 71.6 % 40.0 - 85.0 [facility] ital ID Date Data Source [id number] 11/24/2020 11:52:00 AM EST [facility] Name Value Range Interpretation Code Description Data Maura rce(s) Supporting Document(s) CBC W/AUTOMATED DIFF [facility] COMPLETE BLOOD COUNT Leukocytes [#/volume] in Blood by Automated count 4.9 10^3/uL 4.2 - 1 1.0 [facility] Erythrocytes [#/volume] in Blood by Automated count 3.68 10^6/uL 4. 20 - 5.40 L [facility] Hemoglobin [Mass/volume] in Blood 13.2 g/dL 12.0 - 16.0 [facility] Hematocrit [Volume Fraction] of Blood by Automated count 38.4 % 3 7.0 - 47.0 [facility] Erythrocyte mean corpuscular volume [Entitic volume] b y Automated count 104.3 fL 81.0 - 101 H [facility] Erythrocyte mean corpuscular hemoglobin [Entitic mass] by Automated count 35.9 pg 27.0 - 34.0 H [facility] Erythrocyte mean corpuscular hemoglobin concentration [Mass/volume] by Automated count 34.4 g/dL 31.0 - 36.0 [facility] Erythrocyte distribution width [Ratio] by Automated count 13.6 % 11.5 - 14.5 [facility] Platelets [#/volume] in Blood by Automated count 201 10^3/uL 150 - 45 0 [facility] Platelet mean volume [Entitic volume] in Blood by Automated count 9.5 fL 7.4 - 10.4 [facility] Neutrophils/100 leukocytes in Blood by Automated count 74.0 % 37. 0 - 80.0 [facility] Lymphocytes/100 leukocytes in Blood by Manual count 9.5 % 25.0 - 40.0 L [facility] Monocytes/100 leukocytes in Blood by Automated count 15.3 % 3.0 - 8.0 H [facility] Eosinophils/100 leukocytes in Blood by Automated count 0.6 % 0.0 - 7.0 [facility] Basophils/100 leukocytes in Blood by Automated count 0.2 % 0.0 - 2.5 [facility] %IG 0.4 % 0.0 - 0.0 H [facility] %NRBC 0.0 % 0.0 - 0.0 [facility] Neutrophils [#/volume] in Blood by Automated count 3.59 10^3/uL 2.00 - 6.90 [facility] Lymphocytes [#/volume] in Blood by Automated count 0.46 10^3/uL 0.60 - 3.40 L [facility] Monocytes [#/volume] in Blood by Automated count 0.74 10^3/uL 0.00 - 0.90 [facility] Eosinophils [#/volume] in Blood by Automated count 0.03 10^3/uL 0.00 - 0.70 [facility] Basophils [#/volume] in Blood by Automated count 0.01 10^3/uL 0.00 - 0.20 [facility] #IG 0.02 10^3/uL 0.00 - 0.10 [facility] #NRBC 0.00 10^3/uL 0.00 - 0.00 [facility] o[facility] MANUAL DIFF NOT INDICATED [facility] RBC MORPH NOT INDICATED [facility] spital ID Date Data Source [id number] 12/02/2020 02:35:00 PM EST [facility] Name Value Range Interpretation Code Description Data Maura rce(s) Supporting Document(s) CULTURE BLOOD [facility] spital _CULTURE BLOOD_ TEST [place] [address] CLIA# [id number] SEE SCANNED REPORT{ PRELIM ID Date Data Source [id number] 11/14/2020 02:20:00 PM EST [facility] Name Value Range Interpretation Code Description Data Maura rce(s) Supporting Document(s) SARS coronavirus 2 RNA Detected [facility] This lab was ordered by [facility] and reported by [facility]. ID Date Data Source [id number] 10/13/2020 02:52:00 PM EST [facility] [address] [place] [address] PHONE: [phone] FAX: [phone] Name .................. : JUANITO Daniels Acct Number.................. : [id number] ROOM. ................. : MR Number ................... : [id number] Stay type ............. : O/P Discharge Date......... ... : 10/12/20 Admit Date ......... : 10/12/20 Admit Phys .................... : MELANY WAJ Date of ....... : 1965 Family Phys ................... : SEQUEIRA Phone .................. : [phone] Age ................................ : 55 Film# .................. .:[id number] Sex ................................. : F Unsigned transcriptions are preliminary reports and do not represent a medical or legal document US RENAL LIMITED 85706 COMPLETE:10/12/20 09:10 KNB 44488 (PROCEDURE REASON ACUTE KIDNEY FAILURE RENAL ULTRASOUND, [...] for: MELANY TAVAREZ via fax Copy for: [address] [place] [address] REC Page 1 of 1 Name Value Range Interpretation Code Description Data Maura rce(s) Supporting Document(s) ID Date Data Source [id number] 10/02/2020 09:55:00 [place] [address] RESPIRATORY CARE REPORT ==== ---------NAME------- NUMBER SEX AGE ADMIT DISC. XRAY# F/C AUGUSTOJUSTYN Daniels [id number] F 55 09/27/20 09/28/20 [id number] MB4 O/P DATE OF : 1965 M/R# [id number] #: [id number] [id number] LOCATION[facility] [address] COMP LETE:09/28/20 02:12 [facility] [address] PHYSICIAN: KIM Fox Name Value Range Interpretation Code Description Data Maura rce(s) Supporting Document(s) ID Date Data Source [id number] 10/02/2020 10:51:00 AM EST [facility] [address] [place] [address] PHONE: [phone] FAX: [phone] Name .................. : JUANITO Daniels Acct Number.................. : [id number] ROOM. ................. : 101-1 MR Number ................... : [id number] Stay type ............. : O/P Discharge Date......... ... : Admit Date ......... : 09/27/20 Admit Phys .................... : KIM MENDEZ Date of ....... : 1965 Family Phys ................... : SEQUEIRA Phone .................. : [phone] Age ................................ : 55 Film# .................. .:[id number] Sex ................................. : F Unsigned transcriptions are preliminary reports and do not represent a medical or legal document CT HEAD(STROKE PROTOCOL) W/O 53323 COMPLETE:09/27/20 19:23 KJE 23621 Reason(s): blurry vision on and off, on [...] By Jimmy Ashby M.D. , 10/02/20 10:51, [facility] Transcribe Initials: REYES , Transcribe Date: 09/28/20 00:50, Dictation Date: Copy for: EMERGENCY DEPT via modem Copy for: 710 MED REC DISCHARGED Page 1 of 1 Name Value Range Interpretation Code Description Data Maura rce(s) Supporting Document(s) ID Date Data Source [id number] 10/02/2020 10:51:00 AM [facility] [address] [place] [address] PHONE: [phone] FAX: [phone] Name .................. : JUANITO ROMAN Jeremiah Acct Number.................. : [id number] ROOM. ................. : 101-1 MR Number ................... : [id number] Stay type ............. : O/P Discharge Date......... ... : Admit Date ......... : 09/27/20 Admit Phys .................... : KIM VANESSA Date of ....... : 1965 Family Phys ................... : SEQUEIRA Phone .................. : [phone] Age ................................ : 55 Film# .................. .:[id number] Sex ................................. : F Unsigned transcriptions are preliminary reports and do not represent a medical or legal document CHEST PORTABLE [id number] COMPLETE:09/27/20 19:23 [facility] [address] Reason(s): TIA PORTABLE CHEST X-RAY: INDICATION: TIA [...] rce(s) Supporting Document(s) ID Date Data Source [id number] 10/02/2020 10:48:00 AM [facility] [address] [place] [address] PHONE: [phone] FAX: [phone] Name .................. : JUANITO Daniels Acct Number.................. : [id number] ROOM. ................. : 101-1 MR Number ................... : [id number] Stay type ............. : O/P Discharge Date......... ... : Admit Date ......... : 09/27/20 Admit Phys .................... : KIM VANESSA Date of ....... : 1965 Family Phys ................... : [email or web address] Phone .................. : [phone] Age ................................ : 55 Film# .................. .:[id number] Sex ................................. : F Unsigned transcriptions are preliminary reports and do not represent a medical or legal document CAROTID [id number] COMPLETE:09/27/20 20:58 [id number] Reason(s): TIA/CVA CAROTID DOPPLER ULTRASOUND: INDICATION: TIA. [...] rce(s) Supporting Document(s) ID Date Data Source [id number] 09/28/2020 06:50:00 [place] [address] HISTORY AND PHYSICALNAME: JUANITO Daniels ROOM#: 101-1DATE OF : 1965 MR#: [id number] PHYS: Osmel Alvarez MD, PC DATE: 09/27/20CHIEF [...] pulmonary emboli 4. History of DVT [address] [place] [address] HISTORY AND PHYSICALNAME: JUANITO Daniels ROOM#: [facility]DATE OF : 1965 MR#: [id number] PHYS: Osmel Alvarez MD, DATE: 09/27/20 5. [...] Psychological: No anxiety,depression or suicidal ideation. [address] [place] [address] HISTORY AND PHYSICALNAME: JUANITO Daniels ROOM#: 101-1DATE OF : 1965 MR#: [id number] PHYS: Osmel Alvarez MD, PC DATE: 09/27/20PHYSICAL [...] rce(s) Supporting Document(s) ID Date Data Source [id number] 10/01/2020 11:14:00 [place] [address] DISCHARGE SUMMARYNAME: JUANITO Daniels ROOM#: 101-1DATE OF : 1965 MR#: [id number] PHYS: Osmel Alvarez MD, PC DATE: 09/27/20 [...] was up ambulating without difficulty and on [id number], was discharged home in stable condition.DISCHARGE DIAGNOSIS:1. [...] p.r.n. shortness of breath or wheeze [address] [place] [address] DISCHARGE SUMMARYNAME: JUANITO Daniels ROOM#: 101-1DATE OF : 1965 MR#: [id number] PHYS: Osmel Alvarez MD, PC DATE: 09/27/20 [...] rce(s) Supporting Document(s) ID Date Data Source [id number] 09/28/2020 08:59:00 AM EST [facility] (Osmel Alvarez MD) Name Value Range Interpretation Code Description Data Maura rce(s) Supporting Document(s) Troponin T.cardiac [Mass/volume] in Serum or Plasma Laborato ry test result 0.00-0.10 [facility] (Osmel Alvarez MD) TROPONIN T 0.1 ng/ml Recommended as the clinical th reshold value for Troponin T. ID Date Data Source [id number] 09/28/2020 09:27:00 AM [facility] Name Value Range Interpretation Code Description Data Maura rce(s) Supporting Document(s) TROPONIN T <0.01 NG/ML 0.00 - 0.10 [facility] ospital TROPONIN T0.1 ng/ml Recommended as the c linical threshold value forTroponin T. ID Date Data Source [id number] 09/28/2020 06:30:00 AM EST [facility] (Osmel Alvarez MD) Name Value Range Interpretation Code Description Data Maura rce(s) Supporting Document(s) Magnesium [Mass/volume] in Serum or Plasma 1.5 mg/dL 1.7-2.2 Belo w low normal [facility] (Osmel Alvarez MD) ID Date Data Source [id number] 09/28/2020 06:30:00 AM EST [facility] (Osmel Alvarez [...] >32 mL/min Normal ID Date Data Source [id number] 09/28/2020 06:30:00 AM EST [facility] (Osmel Alvarez [...] (Osmel Alvarez MD) ID Date Data Source [id number] 09/28/2020 07:49:00 AM [facility] Name Value Range Interpretation Code Description Data Maura rce(s) Supporting Document(s) Magnesium [Mass/volume] in Serum or Plasma 1.5 MG/DL 1.7 - 2.2 L [facility] ID Date Data Source [id number] 09/28/2020 07:49:00 AM [facility] Name Value Range Interpretation Code Description Data Maura rce(s) Supporting Document(s) COMPREHENSIVE METABOLIC PANEL [facility] COMPREHENSIVE METABOLIC PANEL Sodium [Moles/volume] in Serum or Plasma 138 mEq/L 134 - 153 [facility] Potassium [Moles/volume] in Serum or Plasma 4.7 mEq/L 3.6 - 5.0 [facility] Chloride [Moles/volume] in Serum or Plasma 99 mEq/L 98 - 107 [facility] Carbon dioxide, total [Moles/volume] in Serum or Plasma 31 MEQ/L 22 - 30 H [facility] Glucose [Mass/volume] in Serum or Plasma 96 MG/DL 65 - 110 [facility] BUN 11 MG/DL 7 - 21 [facility] Creatinine [Mass/volume] in Serum or Plasma 1.3 MG/DL 0.7 - 1.5 [facility] BUN/CREAT 8 8 - 27 [facility] Protein [Mass/volume] in Serum or Plasma 5.8 G/DL 6.3 - 8.2 L [facility] Albumin [Mass/volume] in Serum or Plasma 3.5 G/DL 3.9 - 5.0 L [facility] Globulin [Mass/volume] in Serum by calculation 2.3 GM/DL 2.4 - 3.2 L [facility] A/G RATIO 1.5 0.8 - 2.0 [facility] Calcium [Mass/volume] in Serum or Plasma 9.1 MG/DL 8.4 - 10.2 [facility] Bilirubin.total [Mass/volume] in Serum or Plasma <0.7 MG/DL 0.2 - 1.3 [facility] Alkaline phosphatase [Enzymatic activity/volume] in Serum or Plasma 105 U/L 38 - 126 [facility] Aspartate aminotransferase [Enzymatic activity/volume] in Serum or Plasma 24 U/L 5 - 40 [facility] Alanine aminotransferase [Enzymatic activity/volume] in Seru m or Plasma 19 U/L 7 - 56 [facility] Anion gap 3 in Serum or Plasma 8.0 mmol/L 8.0 - 16.0 [facility] AGE 55 yrs [facility] NON-AA GFR 45 mL[facility]min [facility] A[facility] AMER GFR 55 mL/min [facility] Male GFR In terprentation 20-49 [...] >32 mL/min Normal ID Date Data Source [id number] 09/28/2020 07:43:00 AM EST [facility] Name Value Range Interpretation Code Description Data Maura rce(s) Supporting Document(s) CBC W/AUTOMATED DIFF [facility] COMPLETE BLOOD COUNT Leukocytes [#/volume] in Blood by Automated count 4.8 10^3/uL 4.2 - 1 1.0 [facility] Erythrocytes [#/volume] in Blood by Automated count 2.42 10^6/uL 4. 20 - 5.40 L [facility] Hemoglobin [Mass/volume] in Blood 9.0 g/dL 12.0 - 16.0 L [facility] Hematocrit [Volume Fraction] of Blood by Automated count 28.0 % 3 7.0 - 47.0 L [facility] Erythrocyte mean corpuscular volume [Entitic volume] b y Automated count 115.7 fL 81.0 - 101 H [facility] Erythrocyte mean corpuscular hemoglobin [Entitic mass] by Automated count 37.2 pg 27.0 - 34.0 H [facility] Erythrocyte mean corpuscular hemoglobin concentration [Mass/volume] by Automated count 32.1 g/dL 31.0 - 36.0 [facility] Erythrocyte distribution width [Ratio] by Automated count 17.3 % 11.5 - 14.5 H [facility] Platelets [#/volume] in Blood by Automated count 294 10^3/uL 150 - 45 0 [facility] Platelet mean volume [Entitic volume] in Blood by Automated count 9.4 fL 7.4 - 10.4 [facility] Neutrophils/100 leukocytes in Blood by Automated count 50.0 % 37. 0 - 80.0 [facility] Lymphocytes/100 leukocytes in Blood by Manual count 14.5 % 25.0 - 40.0 L [facility] Monocytes/100 leukocytes in Blood by Automated count 29.0 % 3.0 - 8.0 H [facility] Eosinophils/100 leukocytes in Blood by Automated count 4.0 % 0.0 - 7.0 [facility] 1.7 %IG 0.8 % 0.0 - 0.0 H [facility] %NRBC 0.0 % 0.0 - 0.0 [facility] Neutrophils [#/volume] in Blood by Automated count 2.38 10^3/uL 2.00 - 6.90 [facility] Lymphocytes [#/volume] in Blood by Automated count 0.69 10^3/uL 0.60 - 3.40 [facility] Monocytes [#/volume] in Blood by Automated count 1.38 10^3/uL 0.00 - 0.90 H [facility] Eosinophils [#/volume] in Blood by Automated count 0.19 10^3/uL 0.00 - 0.70 [facility] Basophils [#/volume] in Blood by Automated count 0.08 10^3/uL 0.00 - 0.20 [facility] #IG 0.04 10^3/uL 0.00 - 0.10 [facility] #NRBC 0.00 10^3/uL 0.00 - 0.00 [facility] MANUAL DIFF SEE BELOW [facility] ital Segmented neutrophils/100 leukocytes in Blood by Manual count 45 % 37 - 80 [facility] BAND 0 % 0 - 5 [facility] %LYMPH 39 % 25 - 40 [facility] %MONO 10 % 3 - 8 H [facility] %EOS 5 % 0 - 7 [facility] 1 RBC MORPH NOT INDICATED [facility] ID Date Data Source [id number] 09/28/2020 02:54:00 AM EST [facility] (Osmel Alvarez MD) Name Value Range Interpretation Code Description Data Maura rce(s) Supporting Document(s) Troponin T.cardiac [Mass/volume] in Serum or Plasma Laborato ry test result 0.00-0.10 [facility] (Osmel Alvarez MD) TROPONIN T 0.1 ng/ml Recommended as the clinical th reshold value for Troponin T. ID Date Data Source [id number] 09/28/2020 03:14:00 AM [facility] Name Value Range Interpretation Code Description Data Maura rce(s) Supporting Document(s) TROPONIN T <0.01 NG/ML 0.00 - 0.10 [facility] ospital TROPONIN T0.1 ng/ml Recommended as the c linical threshold value forTroponin T. ID Date Data Source [id number] 09/27/2020 05:50:00 PM [facility] 1 OrderSheet [facility] Emergency Department [address] [place] [address] Phone #: [phone] 09/27/2020 17:38 Patient: CHANTALE SOLOMON Sex: F : 1965 Age: 55yWEIGHT:83.9 kg (S) HEIGHT:60 inches (S) BMI:36.1ALLERGIES: Penicillins, SeafoodCHIEF COMPLAINT: L eye, discomfort, L eye:, blurred visionDIAGNOSIS: Transient cerebral ischemiaLAB ORDERSOrder Description Priority Entered Acknowledged InitialedCBC w Diff STAT 18:31 09/27/2020 18:55 Ble [facility] ED, Jesse ER M.D.; Frfx5GEN STAT 18:31 09/27/2020 18:55 Bel [facility] ED, Jesse ER M.D.; Fohy1Ofkxluyyi STAT 18:31 09/27/2020 18:55 [facility] ED, Jesse ER M.D.; Mlpt7PB/INR STAT 18:31 09/27/2020 18:55 [facility] ED, Jesse ER M.D.; [id number]-Z STAT 18:31 09/27/2020 18:55 Bel [facility] ED, Jesse ER M.D.; [id number] STUDY ORDERSOrder Description Priority Entered Acknowledged InitialedChest Portable 1 STAT 18:31 09/27/2020 18:34 [facility] [place] [facility] TechFlorian(Oxygen?(No)) Leida; Tech1 Reason for Study: TIACT HEAD (STROKE STAT 18:31 09/27/2020 18:34 [facility] [place] [facility] TechFlorian(Oxygen?(No)) Leida; Tech1(IV?(Yes)) Reason for Study: blurry vision on and off, on xarelto, h/o malignancyUS Carotid STAT 20:58 09/27/2020 21:06 Sorbero,(Oxygen?(No)) [place] R.N., M.D.; Reason for Study: TIA/CVA 2 OrderSheet [facility] [facility] Emergency Department [address] [place] [address] Phone #: ext- [phone] 09/27/2020 17:38 Patient: CHANTALE SOLOMON Sex: F : 1965 Age: 55yMEDICATION/IV/DRIP/FLUID ORDERSOrder Description Priority Entered Acknowledged InitialedGENERAL ORDERSOrder Description Priority Entered Acknowledged InitialedCardiac Monitor 18:31 09/27/2020 18:56 Kody(continuous) [facility], Jesse ER M.D.; [id number] 18:31 09/27/2020 18:56 [facility], Jesse ER M.D.; Tech1[Electronically signed by Jacqeulyn Chanel R.N. (23:04 09/27/2020)][Electronically signed by Bel [place] M.D. (23:31 09/27/2020)][Electronically locked by Jacquelyn Chanel R.N. (23:04 09/27/2020)] Name Value Range Interpretation Code Description Data Maura rce(s) Supporting Document(s) ID Date Data Source [id number] 09/27/2020 05:50:00 PM [place] [address] Medication Reconciliation Report [facility] Emergency Department [address] [place] [address] Phone #: ext- [phone] 09/27/2020 17:38 Patient: CHANTALE SOLOMON Sex: F : 1965 Age: 55yWeight: 83.9 kgHeight/Length: 60 in.BMI: 36.1ALLERGIES: Penicillins, SeafoodThe patient's Home Medications are listed below:THE FOLLOWING MEDICATIONS NEED TO BE RECONCILED: Btstolic dilTIAZem HCl Oral Pantoprazole Sodium Oral [facility] Spiriva HandiHaler Inhalation Symbicort Inhalation Tylenol Oral Xarelto OralThe source(s) of the original Home Medication information:patientThe following Medications were given to the patient in the Emergency Department:None.The following Medications were prescribed to the patient:None. Name Value Range Interpretation Code Description Data Maura rce(s) Supporting Document(s) ID Date Data Source [id number] 09/27/2020 05:50:00 PM [place] [address] Medication Administration Record [facility] Emergency Department [address] [place] [address] Phone #: ext- [phone] 09/27/2020 17:38 Patient: CHANTALE SOLOMON A cct#: [id number] Sex: F : 1965 Age: 55yWeight: 83.9 kgHeight/Length: 60 inBMI: 36.1ALLERGIES: Penicillins, SeafoodDate/Time Medication Administered Medication Ordered Name Value Range Interpretation Code Description Data Maura rce(s) Supporting Document(s) ID Date Data Source [id number] 09/27/2020 05:50:00 PM [facility] 1 General Instructions [facility] Emergency Department [address] [place] [address] Phone #: ext [phone] 09/27/2020 17:38 Patient: CHANTALE SOLOMON Sex: F : 1965 Age: 55ySingle acute transient ischemic attack consistent with the amaurosis fugax syndrome.(Electronically signed by Bel [place] M.D. 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 Sepsis Screen negative. [...] HCl Oral. Panto prazole Sodium Oral. Pharmacy [facility]. Spiriva HandiHaler Inhalation. Symbicort Inhalation. Tylenol Oral. Xarelto Oral. --18:08 09/27/20 Chata Barrera RN.AllergiesPenicillins.Seafood. --18:08 09/27/20 Chata Barrera RN.PROBLEMS:Cancer: Active. (Lung, mets to bones). --18:08 09/27/20 Chata Barrera RNIntervertebral Disc Disease. 2 Clinical Report - Nurses [facility] Emergency Department [address] [place] [address], [place] [address] Phone #: ext- [phone] 09/27/2020 17:38 Patient: CHANTALE SOLOMON Sex: F : 1965 Age: 55yPulmonary Embolism.Metabolic disease: (Bone).Chronic Back Pain.DVT - Deep Venous Thrombosis.Heart Disease.Atrial Fibrillation.Lung Cancer. --18:08 Chata Barrera RN.18:03 09/27/20. Medication/allergy information source: the patient. --18:12 09/27/20 Chata Barrera RN.ADDITIONAL SURGERIES:Appendectomy.Back Surgery (Rods in t spine, crushed t7 t8).Dilatation Curettage.Foot surgery.Heel spur.Septoplasty.Tonsillectomy.Tubal Ligation. --18:08 09/27/20 Chata Barrera RN.Ybavfla60:03 09/27/20.PAST MEDICAL HX: Immunizations: up-to-date.SOCIAL HX: Former [...] include patient 3 Clinical Report - Nurses [facility] Emergency Department [address] [place] [address] Phone #: ext- [phone] 09/27/2020 17:38 [id number] Sex: F : 1965 Age: 55y impairment [...] risk identified. --18:12 09/27/20 Chata Barrera RN.PHYSICAL HBPQVKVGAG79:12 09/27/20. Ambulatory to room.GENERAL / NEURO / [...] shown to the ED physician. --19:08 09/27/20 [place]velly gang punch operatorFlorian ER Tech1 19:00 09/27/20. BP: 111/70. MAP: 83. HR: 82. RR: 17. O2 saturation: 100%. --19:45 09/27/20 [facility] TechHarshilFlorian, ER Tech1 19:30 09/27/20. BP: 112/68. MAP: 82. HR: 72. RR: 15. O2 saturation: 100%. --19:46 09/27/20 [place]velly gang punch operator, Florian, ER Tech1 18:30 09/27/2020 Site #1 [...] Patient transported to radiology by wheelchair with it technical specialist. --18:40 09/27/20 Lynette Harris 20:00 09/27/20. Reassurance [...] Youngblood R.N. 4 Clinical Report - Nurses [facility] Emergency Department [address] [place] [address] Phone #: ext- [phone] 09/27/2020 17:38 Patient: [...] Youngblood R.N. 5 Clinical Report - Nurses [facility] Emergency Department [address] [place] [address] Phone #: ext- [phone] 09/27/2020 17:38 Patient: [...] rce(s) Supporting Document(s) ID Date Data Source [id number] 09/27/2020 05:50:00 PM [facility] 1 Clinical Report - Physicians/Mid Levels [facility] Emergency Department [address] [place] [address] Phone #: ext- [phone] 09/27/2020 17:38 Patient: [...] Thrombosis. 2 Clinical Report - Physicians/Mid Levels [facility] Emergency Department [address] [place] [address] Phone #: ext- [phone] 09/27/2020 17:38 Patient: CHANTALE SOLOMON Sex: F : 1965 Age: 55y Heart Disease. Atrial Fibrillation. Lung Cancer. Additional Surgeries: Appendectomy. Back Surgery. Dilatation Curettage. Foot surgery. Heel spur. Right heel spur. Septoplasty. Septoplasty. Tonsillectomy. Tubal Ligation. Medications: Btstolic. dilTIAZem HCl Oral. Pantoprazole Sodium Oral. Pharmacy [facility]. Spiriva HandiHaler Inhalation. Symbicort Inhalation. Tylenol Oral. [...] deficit. 3 Clinical Report - Physicians/Mid Levels [facility] Emergency Department [address] [place] [address] Phone #: ext- [phone] 09/27/2020 17:38 Patient: CHANTALE SOLOMON Sex: F : 1965 Age: 55y Visual patterson normal. Left visual field deficit temporally and superiorly (? resolved . per [id number] left upper quadrant blurriness , now ewresolved). [...] 7.0) 4 Clinical Report - Physicians/Mid Levels [facility] Emergency Department [address] [place] [address] Phone #: ext- [phone] 09/27/2020 17:38 [id number] Sex: F : 1965 Age: 55y BASO [...] Male GFR Interprentation 20-49 yrs >60 mL/min Yolxvu69-30 yrs >56 mL/min Normal 60-69 yrs >49 mL/min Normal 70-79yrs>42 mL/min Normal 80 and above >35 mL/min Normal Female GFRInterpretation 20-39 yrs >60 mL/min Normal 40-49 yrs >58 mL/minNormal 50-59 yrs >51 mL/min Normal 60-69 yrs >45 mL/min Celikw76-07 yrs >39 mL/min Normal 80 and above >32 mL/min NormalMagnesium: (SARAH: 09/27/2020 18:55) ( [facility] 09/27/2020 19:32) Final results Test Result Flag Units (Reference) MAGNESIUM 1.2 L MG/DL (1.7 - 2.2)PT/INR: (SARAH: 09/27/2020 18:55) ( [facility] 09/27/2020 19:10) Final results Test Result Flag Units (Reference) PROTIME 19.8 H SECONDS (11.0 - 15.5) INR 1.60 H (0.93 - 1.23) \\BLDo\\INR INTERPRETATION\\BLDx\\ Therapeutic range for Coumadin and 5 Clinical Report - Physicians/Mid Levels [facility] Emergency Department [address] [place] [address] Phone #: ext- [phone] 09/27/2020 17:38 [id number] Sex: F : 1965 Age: 55y related oral anticoagulants. -International Normalized Ratio (INR): 2.0 - 3.0 for Venous Thrombosis, Pulmonary Embolus, Tissue heart valves, Acute SD, Atrial Fibrillation, Valvular heart disease and recurrent Systemic Embolism. -International Normalized Ratio (INR): 2.5 - 3.5 for Mechanical Prosthetic valve. Troponin-T: (SARAH: 09/27/2020 18:55) ( MsgRcvd 09/27/2020 19:32) Final results Test Result Flag Units (Reference) TROPONIN T <0.01 NG/ML (0.00 - 0.10) TROPONIN T0.1 ng/ml Recommended as the clinical threshold value forTroponin T. Chest Portable 1 View: (SARAH: 09/27/2020 18:31) ( [facility] 09/27/2020 19:23) In Progress CHEST PORTABLE Reason(s): TIA TRANSPORTATION: WC IV? O2? Oxygen?(No) Room: ED CT HEAD(STROKE PROTOCOL) W/O CONTRAST: (SARAH: 09/27/2020 18:31) ( [facility] 09/27/2020 19:23) In Progress CT HEAD(STROKE PROTOCOL) [...] ordered. 6 Clinical Report - Physicians/Mid Levels [facility] Emergency Department [address] [place] [address] Phone #: ext- [phone] 09/27/2020 17:38 Patient: [...] rce(s) Supporting Document(s) ID Date Data Source [id number] 09/27/2020 05:50:00 PM EST [facility] Addenda for CHANTALE SOLOMON VisitID: [id number] Date: 21:01Medication reconciliation request faxed to [employer].(Electronically signed by Benjamín Shore - 09/27/2020 21:01) Name Value Range Interpretation Code Description Data Maura rce(s) Supporting Document(s) ID Date Data Source [id number] 09/27/2020 07:32:00 PM [facility] Name Value Range Interpretation Code Description Data Maura rce(s) Supporting Document(s) TROPONIN T <0.01 NG/ML 0.00 - 0.10 [facility] o[facility]ital TROPONIN T0.1 ng/ml Recommended as the c linical threshold value forTroponin T. ID Date Data Source [id number] 09/27/2020 07:32:00 PM [facility] Name Value Range Interpretation Code Description Data Maura rce(s) Supporting Document(s) Magnesium [Mass/volume] in Serum or Plasma 1.2 MG/DL 1.7 - 2.2 L [facility] ID Date Data Source [id number] 09/27/2020 07:31:00 PM [facility] Name Value Range Interpretation Code Description Data Maura rce(s) Supporting Document(s) COMPREHENSIVE METABOLIC PANEL [facility] COMPREHENSIVE METABOLIC PANEL Sodium [Moles/volume] in Serum or Plasma 136 mEq/L 134 - 153 [facility] Potassium [Moles/volume] in Serum or Plasma 4.2 mEq/L 3.6 - 5.0 [facility] Chloride [Moles/volume] in Serum or Plasma 95 mEq/L 98 - 107 L [facility] Carbon dioxide, total [Moles/volume] in Serum or Plasma 32 MEQ/L 22 - 30 H [facility] Glucose [Mass/volume] in Serum or Plasma 90 MG/DL 65 - 110 [facility] BUN 13 [facility]DL 7 - [facility] Creat[facility] [Mass/volume] in Serum or Plasma 1.4 MG/DL 0.7 - 1.5 [facility] BUN/CREAT 9 8 - 27 [facility] al Protein [Mass/volume] in Serum or Plasma 7.2 G/DL 6.3 - 8.2 [facility] Albumin [Mass/volume] in Serum or Plasma 3.8 G/DL 3.9 - 5.0 L [facility] Globulin [Mass/volume] in Serum by calculation 3.4 GM/DL 2.4 - 3.2 H [facility] A/G RATIO 1.1 0.8 - 2.0 [facility] Calcium [Mass/volume] in Serum or Plasma 9.4 MG/DL 8.4 - 10.2 [facility] Bilirubin.total [Mass/volume] in Serum or Plasma <0.7 MG/DL 0.2 - 1.3 [facility] Alkaline phosphatase [Enzymatic activity/volume] in Serum or Plasma 114 U/L 38 - 126 [facility] Aspartate aminotransferase [Enzymatic activity/volume] in Serum or Plasma 28 U/L 5 - 40 [facility] Alanine aminotransferase [Enzymatic activity/volume] in Seru m or Plasma 23 U/L 7 - 56 [facility] Anion gap 3 in Serum or Plasma 9.0 mmol/L 8.0 - 16.0 [facility] AGE 55 yrs [facility] NON-AA GFR 41 mL[facility]min [facility] AMER GFR 50 mL/min [facility] Male GFR In terprentation 20-49 [...] >32 mL/min Normal ID Date Data Source [id number] 09/27/2020 07:22:00 PM EST [facility] Name Value Range Interpretation Code Description Data Maura rce(s) Supporting Document(s) CBC W/AUTOMATED DIFF [facility] COMPLETE BLOOD COUNT Leukocytes [#/volume] in Blood by Automated count 7.0 10^3/uL 4.2 - 1 1.0 [facility] Erythrocytes [#/volume] in Blood by Automated count 2.56 10^6/uL 4. 20 - 5.40 L [facility] Hemoglobin [Mass/volume] in Blood 9.5 g/dL 12.0 - 16.0 L [facility] Hematocrit [Volume Fraction] of Blood by Automated count 29.8 % 3 7.0 - 47.0 L [facility] Erythrocyte mean corpuscular volume [Entitic volume] b y Automated count 116.4 fL 81.0 - 101 H [facility] Erythrocyte mean corpuscular hemoglobin [Entitic mass] by Automated count 37.1 pg 27.0 - 34.0 H [facility] Erythrocyte mean corpuscular hemoglobin concentration [Mass/volume] by Automated count 31.9 g/dL 31.0 - 36.0 [facility] Erythrocyte distribution width [Ratio] by Automated count 17.5 % 11.5 - 14.5 H [facility] Platelets [#/volume] in Blood by Automated count 295 10^3/uL 150 - 45 0 [facility] Platelet mean volume [Entitic volume] in Blood by Automated count 9.0 fL 7.4 - 10.4 [facility] Neutrophils/100 leukocytes in Blood by Automated count 48.3 % 37. 0 - 80.0 [facility] Lymphocytes/100 leukocytes in Blood by Manual count 24.0 % 25.0 - 40.0 L [facility] Monocytes/100 leukocytes in Blood by Automated count 22.9 % 3.0 - 8.0 H [facility] Eosinophils/100 leukocytes in Blood by Automated count 3.0 % 0.0 - 7.0 [facility] Basophils/100 leukocytes in Blood by Automated count 0.9 % 0.0 - 2.5 [facility] %IG 0.9 % 0.0 - 0.0 H [facility] al %NRBC 0.0 % 0.0 - 0.0 [facility] Neutrophils [#/volume] in Blood by Automated count 3.38 10^3/uL 2.00 - 6.90 [facility] Lymphocytes [#/volume] in Blood by Automated count 1.68 10^3/uL 0.60 - 3.40 [facility] Monocytes [#/volume] in Blood by Automated count 1.60 10^3/uL 0.00 - 0.90 H [facility] Eosinophils [#/volume] in Blood by Automated count 0.21 10^3/uL 0.00 - 0.70 [facility] Basophils [#/volume] in Blood by Automated count 0.06 10^3/uL 0.00 - 0.20 [facility] #IG 0.06 10^3/uL 0.00 - 0.10 [facility] #NRBC 0.00 10^3/uL 0.00 - 0.00 [facility] ospital MANUAL DIFF SEE BELOW [facility] ital Segmented neutrophils/100 leukocytes in Blood by Manual count 61 % 37 - 80 [facility] %LYMPH 24 % 25 - 40 L [facility] al %MONO 15 % 3 - 8 H [facility] RBC MORPH NOT INDICATED [facility] ID Date Data Source [id number] 09/27/2020 07:10:00 PM EST [facility] Name Value Range Interpretation Code Description Data Maura rce(s) Supporting Document(s) Prothrombin time (PT) 19.8 SECONDS 11.0 - 15.5 H [facility] INR in Platelet poor plasma by Coagulation assay 1.60 0.93 - 1. 23 H [facility] \\BLDo\\INR INTERPRETATION\\BLDx\\ Therapeutic range for Coumadin and related oral anticoagulants. - International Normalized Ratio (INR): 2.0 - 3.0 for Venous Thrombosis, Pulmonary Embolus, Tissue heart valves, Acute SD, Atrial Fibrillation, Valvular heart disease and recurrent Systemic Embolism. -International Normalized Ratio (INR): 2.5 - 3.5 for Mechanical Prosthetic valve. ID Date Data Source [id number] 09/05/2020 03:26:00 PM [facility] Name Value Range Interpretation Code Description Data Maura rce(s) Supporting Document(s) COMPREHENSIVE METABOLIC PANEL [facility] COMPREHENSIVE METABOLIC PANEL Sodium [Moles/volume] in Serum or Plasma 138 mEq/L 134 - 153 [facility] Potassium [Moles/volume] in Serum or Plasma 5.0 mEq/L 3.6 - 5.0 [facility] Chloride [Moles/volume] in Serum or Plasma 100 mEq/L 98 - 107 [facility] Carbon dioxide, total [Moles/volume] in Serum or Plasma 27 MEQ/L 22 - 30 [facility] Glucose [Mass/volume] in Serum or Plasma 104 MG/DL 65 - 110 [facility] BUN 14 MG/DL 7 - 21 [facility] Creatinine [Mass/volume] in Serum or Plasma 1.3 MG/DL 0.7 - 1.5 [facility] BUN/CREAT 11 8 - 27 [facility] Protein [Mass/volume] in Serum or Plasma 6.7 G/DL 6.3 - 8.2 [facility] Albumin [Mass/volume] in Serum or Plasma 3.7 G/DL 3.9 - 5.0 L [facility] Globulin [Mass/volume] in Serum by calculation 3.0 GM/DL 2.4 - 3.2 [facility] A/G RATIO 1.2 0.8 - 2.0 [facility] Calcium [Mass/volume] in Serum or Plasma 9.4 MG/DL 8.4 - 10.2 [facility] Bilirubin.total [Mass/volume] in Serum or Plasma <0.7 MG/DL 0.2 - 1.3 [facility] Alkaline phosphatase [Enzymatic activity/volume] in Serum or Plasma 106 U/L 38 - 126 [facility] Aspartate aminotransferase [Enzymatic activity/volume] in Serum or Plasma 25 U/L 5 - 40 [facility] Alanine aminotransferase [Enzymatic activity/volume] in Seru m or Plasma 14 U/L 7 - 56 [facility] Anion gap 3 in Serum or Plasma 11.0 mmol/L 8.0 - 16.0 [facility] AGE 55 yrs [facility] NON-AA GFR 45 mL/min [facility] AFR AMER GFR 55 mL/min [facility] Male GFR In terprentation 20-49 [...] >32 mL/min Normal ID Date Data Source [id number] 08/29/2020 10:44:00 AM EDT [facility] Name Value Range Interpretation Code Description Data Maura rce(s) Supporting Document(s) COMPREHENSIVE METABOLIC PANEL [facility] COMPREHENSIVE METABOLIC PANEL Sodium [Moles/volume] in Serum or Plasma 137 mEq/L 134 - 153 [facility] Potassium [Moles/volume] in Serum or Plasma 4.3 mEq/L 3.6 - 5.0 [facility] Chloride [Moles/volume] in Serum or Plasma 97 mEq/L 98 - 107 L [facility] Carbon dioxide, total [Moles/volume] in Serum or Plasma 31 MEQ/L 22 - 30 H [facility] Glucose [Mass/volume] in Serum or Plasma 122 MG/DL 65 - 110 H [facility] BUN 16 MG/DL 7 - 21 [facility] Creatinine [Mass/volume] in Serum or Plasma 1.5 MG/DL 0.7 - 1.5 [facility] BUN/CREAT 11 8 - 27 [facility] Protein [Mass/volume] in Serum or Plasma 6.7 G/DL 6.3 - 8.2 [facility] Albumin [Mass/volume] in Serum or Plasma 3.6 G/DL 3.9 - 5.0 L [facility] Globulin [Mass/volume] in Serum by calculation 3.1 GM/DL 2.4 - 3.2 [facility] A/G RATIO 1.2 0.8 - 2.0 [facility] Calcium [Mass/volume] in Serum or Plasma 8.5 MG/DL 8.4 - 10.2 [facility] Bilirubin.total [Mass/volume] in Serum or Plasma <0.7 MG/DL 0.2 - 1.3 [facility] Alkaline phosphatase [Enzymatic activity/volume] in Serum or Plasma 108 U/L 38 - 126 [facility] Aspartate aminotransferase [Enzymatic activity/volume] in Serum or Plasma 29 U/L 5 - 40 [facility] Alanine aminotransferase [Enzymatic activity/volume] in Seru m or Plasma 14 U/L 7 - 56 [facility] Anion gap 3 in Serum or Plasma 9.0 mmol/L 8.0 - 16.0 [facility] AGE 55 yrs [facility] NON-AA GFR 38 mL/min [facility] willy AFR AMER GFR 46 mL/min [facility] Male GFR In terprentation 20-49 [...] >32 mL/min Normal ID Date Data Source [id number] 08/29/2020 10:37:00 AM EDT [facility] Name Value Range Interpretation Code Description Data Maura rce(s) Supporting Document(s) CBC W/AUTOMATED DIFF [facility] COMPLETE BLOOD COUNT Leukocytes [#/volume] in Blood by Automated count 8.8 10^3/uL 4.2 - 1 1.0 [facility] Erythrocytes [#/volume] in Blood by Automated count 2.97 10^6/uL 4. 20 - 5.40 L [facility] Hemoglobin [Mass/volume] in Blood 11.0 g/dL 12.0 - 16.0 L [facility] Hematocrit [Volume Fraction] of Blood by Automated count 33.4 % 3 7.0 - 47.0 L [facility] Erythrocyte mean corpuscular volume [Entitic volume] b y Automated count 112.5 fL 81.0 - 101 H [facility] Erythrocyte mean corpuscular hemoglobin [Entitic mass] by Automated count 37.0 pg 27.0 - 34.0 H [facility] Erythrocyte mean corpuscular hemoglobin concentration [Mass/volume] by Automated count 32.9 g/dL 31.0 - 36.0 [facility] Erythrocyte distribution width [Ratio] by Automated count 14.5 % 11.5 - 14.5 [facility] Platelets [#/volume] in Blood by Automated count 347 10^3/uL 150 - 45 0 [facility] Platelet mean volume [Entitic volume] in Blood by Automated count 9.1 fL 7.4 - 10.4 [facility] Neutrophils/100 leukocytes in Blood by Automated count 65.2 % 37. 0 - 80.0 [facility] Lymphocytes/100 leukocytes in Blood by Manual count 11.5 % 25.0 - 40.0 L [facility] Monocytes/100 leukocytes in Blood by Automated count 18.4 % 3.0 - 8.0 H [facility] Eosinophils/100 leukocytes in Blood by Automated count 3.2 % 0.0 - 7.0 [facility] Basophils/100 leukocytes in Blood by Automated count 1.0 % 0.0 - 2.5 [facility] %IG 0.7 % 0.0 - 0.0 H [facility] %NRBC 0.0 % 0.0 - 0.[facility] [#/volume] in Blood by Automated count 5.76 10^3/uL 2.00 - 6.90 [facility] Lymphocytes [#/volume] in Blood by Automated count 1.02 10^3/uL 0.60 - 3.40 [facility] Monocytes [#/volume] in Blood by Automated count 1.63 10^3/uL 0.00 - 0.90 H [facility] Eosinophils [#/volume] in Blood by Automated count 0.28 10^3/uL 0.00 - 0.70 [facility] Basophils [#/volume] in Blood by Automated count 0.09 10^3/uL 0.00 - 0.20 [facility] #IG 0.06 10^3/uL 0.00 - 0.10 [facility] #NRBC 0.00 10^3/uL 0.00 - 0.00 [facility] ospital MANUAL DIFF SEE BELOW [facility] ital Segmented neutrophils/100 leukocytes in Blood by Manual count 74 % 37 - 80 [facility] BAND 1 % 0 - 5 [facility] Hospit al %LYMPH 12 % 25 - 40 L [facility] al %MONO 12 % 3 - 8 H [facility] %EOS 1 % 0 - 7 [facility] RBC MORPH MORPH IS NORMAL [facility] ID Date Data Source [id number] 08/07/2020 11:19:00 [place] [address] HISTORY AND PHYSICALNAME: JUANITO Daniels ROOM#: [id number] OF : 1965 MR#: [id number] PHYS: Osmel Alvarez MD, [facility] [id number] DATE: 08/05/20CHIEF COMPLAINT: This is a 55-year-old [...] [facility]. She has known history ofappendectomy, back surgery [...] Mother is alive and has COPD. [address] [place] [address] HISTORY AND PHYSICALNAME: JUANITO Daniels ROOM#: [id number] OF : 1965 MR#: [id number] PHYS: Osmel Alvarez MD, PC DATE: 08/05/20PHYSICAL EXAMINATION:GENERAL: Moderately-built.VITAL SIGNS: Blood pressure is 134/97. Heart rate was 160. Temperature 98. Respirations 18-24. [id number] is 100% on 2 liters of oxygen.HEENT: [...] rce(s) Supporting Document(s) ID Date Data Source [id number] 08/07/2020 11:17:00 [place] [address] DISCHARGE SUMMARYNAME: JUANITO Daniels ROOM#: [id number] OF : 1965 MR#: [id number] PHYS: Osmel Alvarez MD, PC DATE: 08/05/20 [...] daily.11. Symbicort 160/4.5 mcg bid.DISCHARGE PLAN: [address] [place] [address] DISCHARGE SUMMARYNAME: JUANITO Daniels ROOM#: [id number] OF : 1965 MR#: [id number] PHYS: Osmel Alvarez MD, DATE: 08/05/20 DISCHARGED:Follow [...] rce(s) Supporting Document(s) ID Date Data Source [id number] 08/15/2020 10:43:00 AM EDT [facility] (Osmel Alvarez [...] MD) {A1] {HB] ID Date Data Source [id number] 08/15/2020 10:43:00 AM EDT [facility] (Osmel Alvarez [...] >32 mL/min Normal ID Date Data Source [id number] 08/15/2020 10:43:00 AM EDT [facility] (Osmel Alvarez MD) Name Value Range Interpretation Code Description Data Maura rce(s) Supporting Document(s) Magnesium [Mass/volume] in Serum or Plasma 1.1 mg/dL 1.7-2.2 Belo w low normal [facility] (Osmel Alvarez MD) Iron [Mass/volume] in Serum or Plasma 28 ug/dL 42-135 Below low normal [facility] (Osmel Alvarez MD) ID Date Data Source [id number] 08/15/2020 10:43:00 AM EDT [facility] (Osmel Alvarez [...] (Osmel Alvarez MD) ID Date Data Source [id number] 08/15/2020 11:37:00 AM EDT [facility] Name Value Range Interpretation Code Description Data Maura rce(s) Supporting Document(s) Hemoglobin A1c/Hemoglobin.total in Blood 5.2 % 4.4 - 6.1 [facility] {A1]{HB] ID Date Data Source [id number] 08/15/2020 11:37:00 AM EDT [facility] Name Value Range Interpretation Code Description Data Maura rce(s) Supporting Document(s) BNP 1005 PG/ML 0 - 125 [facility] ID Date Data Source [id number] 08/15/2020 11:08:00 AM EDT [facility] Name Value Range Interpretation Code Description Data Maura rce(s) Supporting Document(s) Fibrin D-dimer FEU [Mass/volume] in Platelet poor plasma 1.41 ug /mL 0.27 - 0.50 H [facility] ID Date Data Source [id number] 08/15/2020 11:37:00 AM EDT [facility] Name Value Range Interpretation Code Description Data Maura rce(s) Supporting Document(s) COMPREHENSIVE METABOLIC PANEL [facility] COMPREHENSIVE METABOLIC PANEL Sodium [Moles/volume] in Serum or Plasma 137 mEq/L 134 - 153 [facility] Potassium [Moles/volume] in Serum or Plasma 3.5 mEq/L 3.6 - 5.0 L [facility] Chloride [Moles/volume] in Serum or Plasma 95 mEq/L 98 - 107 L [facility] Carbon dioxide, total [Moles/volume] in Serum or Plasma 27 MEQ/L 22 - 30 [facility] Glucose [Mass/volume] in Serum or Plasma 105 MG/DL 65 - 110 [facility] BUN 9 MG/DL 7 - 21 [facility] Creatinine [Mass/volume] in Serum or Plasma 1.3 MG/DL 0.7 - 1.5 [facility] BUN/CREAT 7 8 - 27 L [facility] Protein [Mass/volume] in Serum or Plasma 7.1 G/DL 6.3 - 8.2 [facility] Albumin [Mass/volume] in Serum or Plasma 3.9 G/DL 3.9 - 5.0 [facility] Globulin [Mass/volume] in Serum by calculation 3.2 GM/DL 2.4 - 3.2 [facility] A/G RATIO 1.2 0.8 - 2.0 [facility] Alkaline phosphatase [Enzymatic activity/volume] in Serum or Plasma 113 U/L 38 - 126 [facility] Aspartate aminotransferase [Enzymatic activity/volume] in Serum or Plasma 24 U/L 5 - 40 [facility] Alanine aminotransferase [Enzymatic activity/volume] in Seru m or Plasma 12 U/L 7 - 56 [facility] Anion gap 3 in Serum or Plasma 15.0 mmol/L 8.0 - 16.0 [facility] AGE 55 yrs [facility] NON-AA GFR 45 mL/min [facility] willy AFR AMER GFR 55 mL/min [facility] Male GFR In terprentation 20-49 [...] >32 mL/min Normal ID Date Data Source [id number] 08/15/2020 11:37:00 AM EDT [facility] Name Value Range Interpretation Code Description Data Maura rce(s) Supporting Document(s) Iron [Mass/volume] in Serum or Plasma 28 UG/DL 42 - 135 L [facility] ID Date Data Source [id number] 08/15/2020 11:51:00 AM [facility] Name Value Range Interpretation Code Description Data Maura rce(s) Supporting Document(s) Magnesium [Mass/volume] in Serum or Plasma 1.1 MG/DL 1.7 - 2.2 L [facility] ID Date Data Source [id number] 08/15/2020 11:40:00 AM [facility] Name Value Range Interpretation Code Description Data Maura rce(s) Supporting Document(s) CBC W/AUTOMATED DIFF [facility] COMPLETE BLOOD COUNT Leukocytes [#/volume] in Blood by Automated count 9.7 10^3/uL 4.2 - 1 1.0 [facility] Erythrocytes [#/volume] in Blood by Automated count 2.91 10^6/uL 4. 20 - 5.40 L [facility] Hemoglobin [Mass/volume] in Blood 10.8 g/dL 12.0 - 16.0 L [facility] Hematocrit [Volume Fraction] of Blood by Automated count 32.5 % 3 7.0 - 47.0 L [facility] Erythrocyte mean corpuscular volume [Entitic volume] b y Automated count 111.7 fL 81.0 - 101 H [facility] Erythrocyte mean corpuscular hemoglobin [Entitic mass] by Automated count 37.1 pg 27.0 - 34.0 H [facility] Erythrocyte mean corpuscular hemoglobin concentration [Mass/volume] by Automated count 33.2 g/dL 31.0 - 36.0 [facility] Erythrocyte distribution width [Ratio] by Automated count 15.1 % 11.5 - 14.5 H [facility] Platelets [#/volume] in Blood by Automated count 335 10^3/uL 150 - 45 0 [facility] Platelet mean volume [Entitic volume] in Blood by Automated count 9.5 fL 7.4 - 10.4 [facility] Neutrophils/100 leukocytes in Blood by Automated count 60.8 % 37. 0 - 80.0 [facility] Lymphocytes/100 leukocytes in Blood by Manual count 7.4 % 25.0 - 40.0 L [facility] Monocytes/100 leukocytes in Blood by Automated count 27.0 % 3.0 - 8.0 H [facility] Eosinophils/100 leukocytes in Blood by Automated count 2.7 % 0.0 - 7.0 [facility] 1.0 %IG 1.1 % 0.0 - 0.0 H [facility] al %NRBC 0.0 % 0.0 - 0.0 [facility] al Neutrophils [#/volume] in Blood by Automated count 5.87 10^3/uL 2.00 - 6.90 [facility] Lymphocytes [#/volume] in Blood by Automated count 0.72 10^3/uL 0.60 - 3.40 [facility] Monocytes [#/volume] in Blood by Automated count 2.61 10^3/uL 0.00 - 0.90 H [facility] Eosinophils [#/volume] in Blood by Automated count 0.26 10^3/uL 0.00 - 0.70 [facility] Basophils [#/volume] in Blood by Automated count 0.10 10^3/uL 0.00 - 0.20 [facility] #IG 0.11 10^3/uL 0.00 - 0.10 [facility] #NRBC 0.00 10^3/uL 0.00 - 0.00 [facility] MANUAL DIFF SEE BELOW [facility] Segmented neutrophils/100 leukocytes in Blood by Manual count 67 % 37 - 80 [facility] BAND 0 % 0 - 5 [facility] %LYMPH 12 % 25 - 40 L [facility] %MONO 18 % 3 - 8 H [facility] %EOS 3 % 0 - 7 [facility] 0 RBC MORPH NOT INDICATED [facility] ID Date Data Source [id number] 08/07/2020 12:34:00 PM EDT [facility] [address] [place] [address] PHONE: [phone] FAX: [phone] Name .................. : JUANITO ROMAN Jeremiah Acct Number.................. : [id number] ROOM. ................. : CCU3 Number ................... : [id number] Stay type ............. : I/P Discharge Date......... ... : Admit Date ......... : 08/05/20 Admit Phys .................... : KIM VANESSA Date of ....... : 1965 Family Phys ................... : REGINE GAIL Phone .................. : [phone] Age ................................ : 55 Film# .................. .:[id number] Sex ................................. : F Unsigned transcriptions are preliminary reports and do not represent a medical or legal document CHEST PORTABLE [id number] COMPLETE:08/05/20 22:29 RLB 25627 Reason(s): Chest Pain PORTABLE CHEST X-RAY: COMPARISON: [...] 08/05/20 22:54, Dictation Date: Copy for: [facility] REC DISCHARGED Page 1 of 1 Name Value Range Interpretation Code Description Data Maura rce(s) Supporting Document(s) ID Date Data Source [id number] 08/07/2020 08:52:00 AM EDT [facility] [address] [place] [address] RESPIRATORY CARE REPORT ==== ---------NAME------- NUMBER SEX AGE ADMIT DISC. XRAY# F/C CYNDY Daniels [id number] F 55 08/05/20 [id number] B1 I/P DATE OF : 1965 M/R# [id number] #: [id number] CCU3 LOCATION: EMERGENCY DEPT EKG 05226 COMPL ETE:08/07/20 07:21 [facility] [address] PHYSICIAN: KIM MENDEZ Name Value Range Interpretation Code Description Data Maura rce(s) Supporting Document(s) ID Date Data Source [id number] 08/06/2020 11:11:00 [place] [address] PROGRESS NOTENAME: JUANITO Daniels ROOM#: [id number] OF : 1965 MR#: [id number] DATE: 08/05/20 OF SERVICE: 08/06/20UBJECTIVE: This patient [...] Name Value Range Interpretation Code Description Data [facility] rce(s) Supporting Document(s) ID Date Data Source [id number] 08/07/2020 06:55:00 AM EDT [facility] Name Value Range Interpretation Code Description Data [facility] rce(s) Supporting Document(s) CBC W/AUTOMATED DIFF [facility] COMPLETE BLOOD COUNT Leukocytes [#/volume] in Blood by Automated count 3.0 10^3/uL 4.2 - 1 1.0 L [facility] Erythrocytes [#/volume] in Blood by Automated count 2.38 10^6/uL 4. 20 - 5.40 L [facility] Hemoglobin [Mass/volume] in Blood 9.1 g/dL 12.0 - 16.0 L [facility] Hematocrit [Volume Fraction] of Blood by Automated count 25.9 % 3 7.0 - 47.0 L [facility] Erythrocyte mean corpuscular volume [Entitic volume] b y Automated count 108.8 fL 81.0 - 101 H [facility] Erythrocyte mean corpuscular hemoglobin [Entitic mass] by Automated count 38.2 pg 27.0 - 34.0 H [facility] Erythrocyte mean corpuscular hemoglobin concentration [Mass/volume] by Automated count 35.1 g/dL 31.0 - 36.0 [facility] Erythrocyte distribution width [Ratio] by Automated count 13.6 % 11.5 - 14.5 [facility] Platelets [#/volume] in Blood by Automated count 49 10^3/uL 150 - 450 L [facility] Platelet mean volume [Entitic volume] in Blood by Automated count 9.9 fL 7.4 - 10.4 [facility] Neutrophils/100 leukocytes in Blood by Automated count 50.0 % 37. 0 - 80.0 [facility] Lymphocytes/100 leukocytes in Blood by Manual count 11.7 % 25.0 - 40.0 L [facility] Monocytes/100 leukocytes in Blood by Automated count 31.7 % 3.0 - 8.0 H [facility] Eosinophils/100 leukocytes in Blood by Automated count 6.0 % 0.0 - 7.0 [facility] 0.3 %IG 0.3 % 0.0 - 0.0 [facility] %NRBC 0.0 % 0.0 - 0.0 [facility] Neutrophils [#/volume] in Blood by Automated count 1.50 10^3/uL 2.00 - 6.90 L [facility] Lymphocytes [#/volume] in Blood by Automated count 0.35 10^3/uL 0.60 - 3.40 L [facility] Monocytes [#/volume] in Blood by Automated count 0.95 10^3/uL 0.00 - 0.90 H [facility] Eosinophils [#/volume] in Blood by Automated count 0.18 10^3/uL 0.00 - 0.70 [facility] Basophils [#/volume] in Blood by Automated count 0.01 10^3/uL 0.00 - 0.20 [facility] #IG 0.01 10^3/uL 0.00 - 0.10 [facility] #NRBC 0.00 10^3/uL 0.00 - 0.00 [facility] MANUAL DIFF SEE BELOW [facility] Segmented neutrophils/100 leukocytes in Blood by Manual count 54 % 37 - 80 [facility] BAND 0 % 0 - 5 [facility] %LYMPH 16 % 25 - 40 L [facility] %MONO 25 % 3 - 8 H [facility] %EOS 5 % 0 - 7 [facility] 0 RBC MORPH NOT INDICATED [facility] ID Date Data Source [id number] 08/07/2020 06:54:00 AM EDT [facility] Name Value Range Interpretation Code Description Data Maura rce(s) Supporting Document(s) Magnesium [Mass/volume] in Serum or Plasma 1.5 MG/DL 1.7 - 2.2 L [facility] ID Date Data Source [id number] 08/07/2020 06:54:00 AM EDT [facility] Name Value Range Interpretation Code Description Data Maura rce(s) Supporting Document(s) COMPREHENSIVE METABOLIC PANEL [facility] COMPREHENSIVE METABOLIC PANEL Sodium [Moles/volume] in Serum or Plasma 135 mEq/L 134 - 153 [facility] Potassium [Moles/volume] in Serum or Plasma 3.8 mEq/L 3.6 - 5.0 [facility] Chloride [Moles/volume] in Serum or Plasma 97 mEq/L 98 - 107 L [facility] Carbon dioxide, total [Moles/volume] in Serum or Plasma 29 MEQ/L 22 - 30 [facility] Glucose [Mass/volume] in Serum or Plasma 112 MG/DL 65 - 110 H [facility] BUN 10 MG/DL 7 - 21 [facility] Creatinine [Mass/volume] in Serum or Plasma 1.2 MG/DL 0.7 - 1.5 [facility] BUN/CREAT 8 8 - 27 [facility] al Protein [Mass/volume] in Serum or Plasma 5.9 G/DL 6.3 - 8.2 L [facility] Albumin [Mass/volume] in Serum or Plasma 3.3 G/DL 3.9 - 5.0 L [facility] Globulin [Mass/volume] in Serum by calculation 2.6 GM/DL 2.4 - 3.2 [facility] A/G RATIO 1.3 0.8 - 2.0 [facility] Calcium [Mass/volume] in Serum or Plasma 8.0 MG/DL 8.4 - 10.2 L [facility] Bilirubin.total [Mass/volume] in Serum or Plasma <0.7 MG/DL 0.2 - 1.3 [facility] Alkaline phosphatase [Enzymatic activity/volume] in Serum or Plasma 137 U/L 38 - 126 H [facility] Aspartate aminotransferase [Enzymatic activity/volume] in Serum or Plasma 30 U/L 5 - 40 [facility] Alanine aminotransferase [Enzymatic activity/volume] in Seru m or Plasma 20 U/L 7 - 56 [facility] Anion gap 3 in Serum or Plasma 9.0 mmol/L 8.0 - 16.0 [facility] AGE 55 yrs [facility] NON-AA GFR 50 mL/min [facility]illy AFR AMER GFR 60 mL/min [facility] Male GFR In terprentation 20-49 [...] >32 mL/min Normal ID Date Data Source [id number] 08/06/2020 11:13:00 AM EDT [address] [address] RESPIRATORY CARE REPORT ==== ---------NAME------- NUMBER SEX AGE ADMIT DISC. XRAY# F/C CYNDY Daniels [id number] F [id number] 08/05/20 [id number] B1 I/P DATE OF : 1965 M/R# [id number] #: [id number] CCU3 LOCATION: EMERGENCY DEPT EKG 34803 COMPLET E:08/06/20 11:00 [place] [id number] PHYSICIAN: KIM MENDEZ Name Value Range Interpretation Code Description Data Maura rce(s) Supporting Document(s) ID Date Data Source [id number] 08/06/2020 11:11:00 AM EDT [address] [address] RESPIRATORY CARE REPORT ==== ---------NAME------- NUMBER SEX AGE ADMIT DISC. XRAY# F/C CYNDY Daniels [id number] F 55 08/05/20 [id number] B1 I/P DATE OF : 1965 M/R# [id number] PH#: [phone] RM CCU3 LOCATION: EMERGENCY DEPT EKG 98236 COMPLET E:08/06/20 04:39 T 32365 PHYSICIAN: KIM MENDEZ Name Value Range Interpretation Code Description Data Maura rce(s) Supporting Document(s) ID Date Data Source [id number] 08/06/2020 11:10:00 [place] [address] RESPIRATORY CARE REPORT ==== ---------NAME------- NUMBER SEX AGE ADMIT DISC. XRAY# F/C CYNDY Daniels [id number] F 55 08/05/20 [id number] B1 I/P DATE OF : 1965 M/R# [id number] PH#: [phone] RM CCU3 LOCATION: EMERGENCY DEPT EKG 30862 COMPLET E:08/06/20 04:39 T 63629 PHYSICIAN: KIM MENDEZ Name Value Range Interpretation Code Description Data Maura rce(s) Supporting Document(s) ID Date Data Source [id number] 08/06/2020 11:09:00 [place] [address] RESPIRATORY CARE REPORT ==== ---------NAME------- NUMBER SEX AGE ADMIT DISC. XRAY# F/C CYNDY Daniels [id number] F 55 08/05/20 [id number] B1 I/P DATE OF : 1965 M/R# [id number] PH#: [phone] CCU3 LOCATION: EMERGENCY DEPT EKG 59097 COMPLET E:08/06/20 04:39 [place] [address] PHYSICIAN: KIM MENDEZ Name Value Range Interpretation Code Description Data Maura rce(s) Supporting Document(s) ID Date Data Source [id number] 08/06/2020 11:08:00 [place] [address] RESPIRATORY CARE REPORT ==== ---------NAME------- NUMBER SEX AGE ADMIT DISC. XRAY# F/C CYNDY Daniels [id number] F 55 08/05/20 [id number] B1 I/P DATE OF : 1965 M/R# [id number] PH#: [phone] RM CCU3 LOCATION: EMERGENCY DEPT EKG 69462 COMPLET E:08/06/20 04:39 [place]MT [address] PHYSICIAN: KIM MENDEZ Name Value Range Interpretation Code Description Data Maura rce(s) Supporting Document(s) ID Date Data Source [id number] 08/06/2020 11:07:00 [place] [address] RESPIRATORY CARE REPORT ==== ---------NAME------- NUMBER SEX AGE ADMIT DISC. XRAY# F/C CYNDY Daniels [id number] F 55 08/05/20 [id number] B1 I/P DATE OF : 1965 M/R# [id number] PH#: [phone] CCU3 LOCATION: EMERGENCY DEPT EKG 58647 COMPLET E:08/06/20 04:39 [place] [address] PHYSICIAN: KIM MENDZE Name Value Range Interpretation Code Description Data Maura rce(s) Supporting Document(s) ID Date Data Source [id number] 08/06/2020 11:06:00 [place] [address] RESPIRATORY CARE REPORT ==== ---------NAME------- NUMBER SEX AGE ADMIT DISC. XRAY# F/C CYNDY Daniels [id number] F 55 08/05/20 [id number] B1 I/P DATE OF : 1965 M/R# [id number] PH#: [phone] RM CCU3 LOCATION: EMERGENCY DEPT EKG 74314 COMPLET E:08/06/20 04:39 VMT [address] PHYSICIAN: KIM MENDEZ Name Value Range Interpretation Code Description Data Maura rce(s) Supporting Document(s) ID Date Data Source [id number] 08/06/2020 11:05:00 [place] [address] RESPIRATORY CARE REPORT ==== ---------NAME------- NUMBER SEX AGE ADMIT DISC. XRAY# F/C OSMANIJUANITO Daniels [id number] F 55 08/05/20 [id number] B1 I/P DATE OF : 1965 M/R# [id number] PH#: [phone] CCU3 LOCATION: EMERGENCY DEPT EKG 20419 COMPLET E:08/06/20 02:15 VMT [address] PHYSICIAN: KIM MENDEZ Name Value Range Interpretation Code Description Data Maura rce(s) Supporting Document(s) ID Date Data Source [id number] 08/06/2020 07:24:00 [place] [address] ---------NAME--------- NUMBER SEX AGE ADMIT DISC. XRAY# F/C OSMANI JUANITO Daniels [id number] F 55 08/05/20 [id number] B1 I/P DATE OF : 1965 M/R# [id number] PH#: [phone] CCU3 LOCATION: EMERGENCY DEPT TRANSCRIBED: 08/06/20 7:[address] THORAX W/O CONTRAST [id number] COMPLETED:08/06/20 6:07 RLB 85426 {REASON FOR CHEST: Pleural Effusion PHYSICIAN: KIM [...] rce(s) Supporting Document(s) ID Date Data Source [id number] 08/06/2020 08:02:00 AM EDT [facility] Name Value Range Interpretation Code Description Data Maura rce(s) Supporting Document(s) Lactate [Moles/volume] in Serum or Plasma 1.6 MMOL/L 0.2 - 2.2 [facility] ID Date Data Source [id number] 08/06/2020 08:02:00 AM EDT [facility] Name Value Range Interpretation Code Description Data Maura rce(s) Supporting Document(s) CBC W/AUTOMATED DIFF [facility] COMPLETE BLOOD COUNT Leukocytes [#/volume] in Blood by Automated count 2.8 10^3/uL 4.2 - 1 1.0 L [facility] Erythrocytes [#/volume] in Blood by Automated count 2.57 10^6/uL 4. 20 - 5.40 L [facility] Hemoglobin [Mass/volume] in Blood 9.5 g/dL 12.0 - 16.0 L [facility] Hematocrit [Volume Fraction] of Blood by Automated count 27.9 % 3 7.0 - 47.0 L [facility] Erythrocyte mean corpuscular volume [Entitic volume] b y Automated count 108.6 fL 81.0 - 101 H [facility] Erythrocyte mean corpuscular hemoglobin [Entitic mass] by Automated count 37.0 pg 27.0 - 34.0 H [facility] Erythrocyte mean corpuscular hemoglobin concentration [Mass/volume] by Automated count 34.1 g/dL 31.0 - 36.0 [facility] Erythrocyte distribution width [Ratio] by Automated count 13.6 % 11.5 - 14.5 [facility] Platelets [#/volume] in Blood by Automated count 47 10^3/uL 150 - 450 L [facility] Platelet mean volume [Entitic volume] in Blood by Automated count 10.7 fL 7.4 - 10.4 H [facility] Neutrophils/100 leukocytes in Blood by Automated count 48.1 % 37. 0 - 80.0 [facility] Lymphocytes/100 leukocytes in Blood by Manual count 9.6 % 25.0 - 40.0 L [facility] Monocytes/100 leukocytes in Blood by Automated count 33.7 % 3.0 - 8.0 H [facility] Eosinophils/100 leukocytes in Blood by Automated count 7.8 % 0.0 - 7.0 H [facility] Basophils/100 leukocytes in Blood by Automated count 0.4 % 0.0 - 2.5 [facility] %IG 0.4 % 0.0 - 0.0 H [facility] al %NRBC 0.0 % 0.0 - 0.0 [facility] al Neutrophils [#/volume] in Blood by Automated count 1.36 10^3/uL 2.00 - 6.90 L [facility] Lymphocytes [#/volume] in Blood by Automated count 0.27 10^3/uL 0.60 - 3.40 L [facility] Monocytes [#/volume] in Blood by Automated count 0.95 10^3/uL 0.00 - 0.90 H [facility] Eosinophils [#/volume] in Blood by Automated count 0.22 10^3/uL 0.00 - 0.70 [facility] Basophils [#/volume] in Blood by Automated count 0.01 10^3/uL 0.00 - 0.20 [facility] #IG 0.01 10^3/uL 0.00 - 0.10 [facility] #NRBC 0.00 10^3/uL 0.00 - 0.00 [facility] MANUAL DIFF NOT INDICATED [facility] [facility] RBC MORPH NOT INDICATED [facility] ID Date Data Source [id number] 08/06/2020 08:00:00 AM EDT [facility] Name Value Range Interpretation Code Description Data Maura rce(s) Supporting Document(s) BNP 1738 PG/ML 0 - 125 H [facility] willy ID Date Data Source [id number] 08/06/2020 08:00:00 AM EDT [facility] Name Value Range Interpretation Code Description Data Maura rce(s) Supporting Document(s) TROPONIN T <0.01 NG/ML 0.00 - 0.10 [facility] ospital TROPONIN T0.1 ng/ml Recommended as the c linical threshold value Kathie Maxwell ID Date Data Source [id number] 08/06/2020 08:00:00 AM EDT [facility] Name Value Range Interpretation Code Description Data Maura rce(s) Supporting Document(s) Hemoglobin A1c/Hemoglobin.total in Blood 4.8 % 4.4 - 6.1 [facility] {A1]{HB] ID Date Data Source [id number] 08/06/2020 07:38:00 AM EDT [facility] Name Value Range Interpretation Code Description Data Maura rce(s) Supporting Document(s) CVE PANEL [facility] al LIPID PANEL Cholesterol [Mass/volume] in Serum or Plasma 154 MG/DL 131 - 200 [facility] Deprecated Triglyceride [Mass/volume] in Serum or Plasma 130 MG/DL 3 5 - 160 [facility] HDL 63 MG/DL 29 - 86 [facility] Cholesterol in LDL [Mass/volume] in Serum or Plasma by Direc t assay 68 mg/dL 65 - 175 [facility] Cholesterol.total/Cholesterol in HDL [Mass Ratio] in Serum o r Plasma 2.4 3.2 - 4.4 L [facility] LDL/HDL 1.08 1.47 - 3.22 L [facility] ital CVE RISK CHOL/HDL LDL/HDLMEN: 1/2 AVERAGE 3.43 1.00 AVERAGE 4.97 3.55 2X AVERAGE 9.55 6.25 3X AVERAGE 23.99 7.99WOMEN: 1/2 AVERAGE 3.27 1.47 AVERAGE 4.44 3.22 2X AVERAGE 7.05 5.03 3X AVERAGE 11.04 6.14 ID Date Data Source [id number] 08/06/2020 07:38:00 AM EDT [facility] Name Value Range Interpretation Code Description Data Maura rce(s) Supporting Document(s) COMPREHENSIVE METABOLIC PANEL [facility] COMPREHENSIVE METABOLIC PANEL Sodium [Moles/volume] in Serum or Plasma 137 mEq/L 134 - 153 [facility] Potassium [Moles/volume] in Serum or Plasma 4.0 mEq/L 3.6 - 5.0 [facility] Chloride [Moles/volume] in Serum or Plasma 99 mEq/L 98 - 107 [facility] Carbon dioxide, total [Moles/volume] in Serum or Plasma 30 MEQ/L 22 - 30 [facility] Glucose [Mass/volume] in Serum or Plasma 114 MG/DL 65 - 110 H [facility] BUN 11 MG/DL 7 - 21 [facility] Creatinine [Mass/volume] in Serum or Plasma 1.2 MG/DL 0.7 - 1.5 [facility] BUN/CREAT 9 8 - 27 [facility] Protein [Mass/volume] in Serum or Plasma 6.1 G/DL 6.3 - 8.2 L [facility] Albumin [Mass/volume] in Serum or Plasma 3.4 G/DL 3.9 - 5.0 L [facility] Globulin [Mass/volume] in Serum by calculation 2.7 GM/DL 2.4 - 3.2 [facility] A/G RATIO 1.3 0.8 - 2.0 [facility] Calcium [Mass/volume] in Serum or Plasma 8.1 MG/DL 8.4 - 10.2 L [facility] Bilirubin.total [Mass/volume] in Serum or Plasma <0.7 MG/DL 0.2 - 1.3 [facility] Alkaline phosphatase [Enzymatic activity/volume] in Serum or Plasma 129 U/L 38 - 126 H [facility] Aspartate aminotransferase [Enzymatic activity/volume] in Serum or Plasma 33 U/L 5 - 40 [facility] Alanine aminotransferase [Enzymatic activity/volume] in Seru m or Plasma 22 U/L 7 - 56 [facility] Anion gap 3 in Serum or Plasma 8.0 mmol/L 8.0 - 16.0 [facility]GE 55 [facility] AFR AMER GFR 60 mL/min [facility] Male GFR In terprentation 20-49 [...] >32 mL/min Normal ID Date Data Source [id number] 08/06/2020 07:35:00 AM EDT [facility] Name Value Range Interpretation Code Description Data Maura rce(s) Supporting Document(s) Magnesium [Mass/volume] in Serum or Plasma 1.7 MG/DL 1.7 - 2.2 [facility] ID Date Data Source [id number] 08/06/2020 12:59:00 PM EDT [facility] Value Range Interpretation Code Description Data Maura rce(s) Supporting Document(s) Cobalamin (Vitamin B12) [Mass/volume] in Serum or Plasma 475 PG/ML 232 - 1245 [facility] ID Date Data Source [id number] 08/06/2020 12:40:00 PM EDT [facility] Value Range Interpretation Code Description Data Maura rce(s) Supporting Document(s) Iron [Mass/volume] in Serum or Plasma 50 UG/DL 42 - 135 [facility] ID Date Data Source [id number] 08/05/2020 08:23:00 PM EDT [facility] 1 OrderSheet [facility] Emergency Department [address] [place] [address] Phone #: ext- [phone] 08/05/2020 20:20 Patient: [...] 15 min (NOWx1, HIGH ALERT 2 OrderSheet [facility] Emergency Department [address] [place] [address] Phone #: ext- [phone] 08/05/2020 20:20 Patient: CHANTALE SOLOMON Sex: F [...] rce(s) Supporting Document(s) ID Date Data Source [id number] 08/05/2020 08:23:00 PM EDT [facility] 1 Medication Reconciliation Report [facility] Emergency Department [address] [place] [address] Phone #: ext- [phone] 08/05/2020 20:20 Patient: CHANTALE SOLOMON Sex: F : 1965 Age: 55yWeight: 83.9 kgHeight/Length: 60 in.BMI: 36.1ALLERGIES: Penicillins, SeafoodThe patient's Home Medications are listed below:THE FOLLOWING MEDICATIONS NEED TO BE RECONCILED: Btstolic dilTIAZem HCl Oral Pantoprazole Sodium Oral Pharmacy [facility] Spiriva HandiHaler Inhalation Symbicort Inhalation Tylenol Oral [...] 08/05/2020 9:28:00 PM 2 Medication Reconciliation Report [facility] Emerge ncy Department [address] [place] [address] Phone #: ext- [phone] 08/05/2020 20:20 Patient: CHANTALE SOLOMON Sex: F : 1965 Age: 55yMagnesium Sulfate [IV Drip] Drip IV bolus 0, then 2 gm 2 gm/hr, administered: 08/05/2020 9:52:00 PMThe following Medications were prescribed to the pa tient:None. Name Value Range Interpretation Code Description Data Maura rce(s) Supporting Document(s) ID Date Data Source [id number] 08/05/2020 08:23:00 PM EDT [facility] 1 Medication Administration Record [facility] Emergency Department [address] [place] [address] Phone #: ext- [phone] 08/05/2020 20:20 Patient: CHANTALE SOLOMON Sex: F : 1965 Age: 55yWeight: 83.9 kgHeight/Length: 60 inBMI: 36.1ALLERGIES: Penicillins, Seafood Date/Time Medication Administered Medication OrderedGiven CARDIZEM [IVP] (DILTIAZEM HCL) Cardizem IVP 20 mg (NOW x1)20:37 08/05/2020 Dose: 20 mg IVPGJoao stevenson R.N. Site: #1 left ACStart NS [IV] IV NS 500 mL Bolus : Bolus 24034:38 08/05/2020 Dose: IV Fluids mL (X1)Joao Carmona R.N. Rate: 500 mL/hr over 60 minute(s)---- Dispensed: 1000 mL bagContinued Upon Disposition Site: #1 left AC22:06 08/05/2020Joao Carmona R.N.Start AMIODARONE [IV DRIP] Amiodarone Drip IV - Kxedmgk24:26 08/05/2020 Dose: 150 mg Drip IV Dose : Bolus 150mg, then over 15GrJoao mcfarland R.N. Rate: 1 mg/min over 10 minute(s) min (NOW x1, HIGH ALERT---- Dispensed: 100 mL bag MEDICATION, Loading dose ofStop Site: #1 left AC 150 mg/100 mL over 10 divlzlr17:35 08/05/2020 (600 mL/hr))Joao Carmona R.N.Start CARDIZEM [IV [...] rce(s) Supporting Document(s) ID Date Data Source [id number] 08/05/2020 08:23:00 PM EDT [facility] 1 General Instructions [facility] Emergency Department [address] [place] [address] Phone #: ext [phone] 08/05/2020 20:20 Patient: CHANTALE SOLOMON Sex: F : 1965 Age: 55yAtrial fibrillation with uncontrolled rate.(Electronically signed by Shauna Junior MD 08/06/2020 00:32) Name Value Range Interpretation Code Description Data Maura rce(s) Supporting Document(s) ID Date Data Source [id number] 08/05/2020 08:23:00 PM EDT [facility] 1 Clinical Report - Nurses [facility] Emergency Department [address] [place] [address] Phone #: ext [phone] 08/05/2020 20:20 Patient: CHANTALE SOLOMON Sex: F [...] R.N.MedicationsdilTIAZem HCl Oral. Pantoprazole Sodium Oral. Pharmacy [facility]. Spiriva HandiHaler Inhalation. Symbicort Inhalation. Tylenol Oral. [...] harming or 2 Clinical Report - Nurses [facility] Emergency Department [address] [place] [address] Phone #: [phone] 08/05/2020 20:20 [id number] Sex: F : 1965 Age: 55y killing [...] Carmona R.N. 3 Clinical Report - Nurses [facility] Emergency Department [address] [place] [address] Phone #: ext- [phone] 08/05/2020 20:20 Patient: [...] Carmona R.N. 4 Clinical Report - Nurses [facility] Emergency Department [address] [place] [address] Phone #: ext- [phone] 08/05/2020 20:20 Patient: [...] rce(s) Supporting Document(s) ID Date Data Source [id number] 08/05/2020 08:23:00 PM EDT [facility] 1 Clinical Report - Physicians/Mid Levels [facility] Emergency Department [address] [place] [address] Phone #: ext- [phone] 08/05/2020 20:20 Patient: [...] Septoplasty. 2 Clinical Report - Physicians/Mid Levels [facility] Emergency Department [address] [place] [address] Phone #: ext- [phone] 08/05/2020 20:20 Patient: CHANTALE SOLOMON Sex: F : 1965 Age: 55y Septoplasty. Tonsillectomy. Tubal Ligation. Medications: Btstolic. dilTIAZem HCl Oral. Pantoprazole Sodium Oral. [facility] HandiHaler Inhalation. Symbicort Inhalation. Tylenol Oral. [...] Tachycardia. Pulses normal. 3 Clinical Report - Physicians/[facility] Emergency Department [address] [place] [address] Phone #: ext- [phone] 08/05/2020 20:20 Patient: [...] SHAUNA COMMENT: __ 4 Clinical Report - Physicians/[facility] Emergency Department [address] [place] [address] Phone #: ext- [phone] 08/05/2020 20:20 Patient: [...] in to admit the patient. he recommended [id number] iv. labs reviewed. her magnesium was slightly [...] rce(s) Supporting Document(s) ID Date Data Source [id number] 08/05/2020 08:23:00 PM EDT [facility] CHANTALE Angel VisitID: [id number] Date: 21:33MedicationReconciliation request faxed to [employer] @ [phone]; Faxed overview to [facility] @ [phone](Electronically signed by Benjamín Shore - 08/05/2020 21:33) Name Value Range Interpretation Code Description Data Maura rce(s) Supporting Document(s) ID Date Data Source [id number] 08/05/2020 10:14:00 PM EDT [facility] Name Value Range Interpretation Code Description Data Maura rce(s) Supporting Document(s) BNP 1159 PG/ML 0 - 125 H [facility] willy ID Date Data Source [id number] 08/05/2020 10:14:00 PM [facility] Name Value Range Interpretation Code Description Data Maura rce(s) Supporting Document(s) Thyrotropin [Units/volume] in Serum or Plasma by Detec tion limit <= 0.05 mIU/L 3.01 uIU/mL 0.47 - 5.01 [facility] ID Date Data Source [id number] 08/05/2020 09:41:00 PM EDT [facility] Name Value Range Interpretation Code Description Data Maura rce(s) Supporting Document(s) COMPREHENSIVE METABOLIC PANEL [facility] COMPREHENSIVE METABOLIC PANEL Sodium [Moles/volume] in Serum or Plasma 132 mEq/L 134 - 153 L [facility] Potassium [Moles/volume] in Serum or Plasma 3.6 mEq/L 3.6 - 5.0 [facility] Chloride [Moles/volume] in Serum or Plasma 94 mEq/L 98 - 107 L [facility] Carbon dioxide, total [Moles/volume] in Serum or Plasma 24 MEQ/L 22 - 30 [facility] Glucose [Mass/volume] in Serum or Plasma 119 MG/DL 65 - 110 H [facility] BUN 11 MG/DL 7 - 21 [facility] Creatinine [Mass/volume] in Serum or Plasma 1.3 MG/DL 0.7 - 1.5 [facility] BUN/CREAT 8 8 - 27 [facility] Protein [Mass/volume] in Serum or Plasma 6.9 G/DL 6.3 - 8.2 [facility] Albumin [Mass/volume] in Serum or Plasma 3.5 G/DL 3.9 - 5.0 L [facility] Globulin [Mass/volume] in Serum by calculation 3.4 GM/DL 2.4 - 3.2 H [facility] A/G RATIO 1.0 0.8 - 2.0 [facility] Calcium [Mass/volume] in Serum or Plasma 8.1 MG/DL 8.4 - 10.2 L [facility] Bilirubin.total [Mass/volume] in Serum or Plasma 0.3 MG/DL 0.2 - 1.3 [facility] Alkaline phosphatase [Enzymatic activity/volume] in Serum or Plasma 129 U/L 38 - 126 H [facility] Aspartate aminotransferase [Enzymatic activity/volume] in Serum or Plasma 35 U/L 5 - 40 [facility] Alanine aminotransferase [Enzymatic activity/volume] in Seru m or Plasma 23 U/L 7 - 56 [facility] Anion gap 3 in Serum or Plasma 14.0 mmol/L 8.0 - 16.0 [facility] AGE 55 yrs [facility] NON-AA GFR 45 mL/min [facility] willy AFR AMER GFR 55 mL/min [facility] Male GFR In terprentation 20-49 [...] >32 mL/min Normal ID Date Data Source [id number] 08/05/2020 09:40:00 PM [facility] Name Value Range Interpretation Code Description Data Maura rce(s) Supporting Document(s) Magnesium [Mass/volume] in Serum or Plasma 1.2 MG/DL 1.7 - 2.2 L [facility] ID Date Data Source [id number] 08/05/2020 09:27:00 PM [facility] Name Value Range Interpretation Code Description Data Maura rce(s) Supporting Document(s) TROPONIN T <0.01 NG/ML 0.00 - 0.10 [facility] ospital TROPONIN T0.1 ng/ml Recommended as the c linical threshold value forTroponin T. ID Date Data Source [id number] 08/05/2020 09:01:00 PM [facility] Name Value Range Interpretation Code Description Data Maura rce(s) Supporting Document(s) CBC W/AUTOMATED DIFF [facility] COMPLETE BLOOD COUNT Leukocytes [#/volume] in Blood by Automated count 3.2 10^3/uL 4.2 - 1 1.0 L [facility] Erythrocytes [#/volume] in Blood by Automated count 2.66 10^6/uL 4. 20 - 5.40 L [facility] Hemoglobin [Mass/volume] in Blood 10.1 g/dL 12.0 - 16.0 L [facility] Hematocrit [Volume Fraction] of Blood by Automated count 28.9 % 3 7.0 - 47.0 L [facility] Erythrocyte mean corpuscular volume [Entitic volume] b y Automated count 108.6 fL 81.0 - 101 H [facility] Erythrocyte mean corpuscular hemoglobin [Entitic mass] by Automated count 38.0 pg 27.0 - 34.0 H [facility] Erythrocyte mean corpuscular hemoglobin concentration [Mass/volume] by Automated count 34.9 g/dL 31.0 - 36.0 [facility] Erythrocyte distribution width [Ratio] by Automated count 13.6 % 11.5 - 14.5 [facility] Platelets [#/volume] in Blood by Automated count 47 10^3/uL 150 - 450 L [facility] Platelet mean volume [Entitic volume] in Blood by Automated count 10.0 fL 7.4 - 10.4 [facility] Neutrophils/100 leukocytes in Blood by Automated count 34.4 % 37. 0 - 80.0 L [facility] Lymphocytes/100 leukocytes in Blood by Manual count 22.0 % 25.0 - 40.0 L [facility] Monocytes/100 leukocytes in Blood by Automated count 36.8 % 3.0 - 8.0 H [facility] Eosinophils/100 leukocytes in Blood by Automated count 5.9 % 0.0 - 7.0 [facility] 0.6 %IG 0.3 % 0.0 - 0.0 [facility] %NRBC 0.0 % 0.0 - 0.0 [facility] Neutrophils [#/volume] in Blood by Automated count 1.11 10^3/uL 2.00 - 6.90 L [facility] Lymphocytes [#/volume] in Blood by Automated count 0.71 10^3/uL 0.60 - 3.40 [facility] Monocytes [#/volume] in Blood by Automated count 1.19 10^3/uL 0.00 - 0.90 H [facility] Eosinophils [#/volume] in Blood by Automated count 0.19 10^3/uL 0.00 - 0.70 [facility] Basophils [#/volume] in Blood by Automated count 0.02 10^3/uL 0.00 - 0.20 [facility] #IG 0.01 10^3/uL 0.00 - 0.10 [facility] #NRBC 0.00 10^3/uL 0.00 - 0.00 [facility] MANUAL DIFF SEE BELOW [facility] Segmented neutrophils/100 leukocytes in Blood by Manual count 36 % 37 - 80 L [facility] %LYMPH 38 % 25 - 40 [facility] %MONO 21 % 3 - 8 H [facility] %EOS 4 % 0 - 7 [facility] 1 RBC MORPH SEE BELOW [facility] Anisocytosis [Presence] in Blood by Light microscopy 1+ SHAUNA L: NONE SEEN A [facility] Macrocytes [Presence] in Blood by Light microscopy 2+ NORMAL: NONE SEEN A [facility] HYPO 1+ NORMAL: NONE SEEN A [facility] { SICKLE CELL (NORMAL: NONE SEEN ) Platelet adequacy [Presence] in Blood by Light microscopy DE CREASED NORMAL: NORMAL A [facility] COMMENT: ID Date Data Source [id number] 08/02/2020 01:04:00 PM EDT [facility] [address] [place] [address] PHONE: [phone] FAX: [phone] Name .................. : JUANITO Daniels Acct Number.................. : [id number] ROOM. ................. : Number ................... : [id number] Stay type ............. : O/P Discharge Date......... ... : 08/01/20 Admit Date ......... : 08/01/20 Admit Phys .................... : MILVIA MARIA DEL CARMEN Date of ....... : 1965 Family Phys ................... : REGINE GAIL Phone .................. : [phone] Age ................................ : 55 Film# .................. .:[id number] Sex ................................. : F Unsigned transcriptions are preliminary reports and do not represent a medical or legal document TIBULA/FIBULA - BILATERAL [id number] COMPLETE:08/01/20 11:39 [facility] [place] [id number] (REASON FOR PROCESS: LEG PAIN BILATERAL TIBIA [...] for: MILVIA PIZANO via fax Copy for: [address] [place] [address] REC Page 1 of 1 Name Value Range Interpretation Code Description Data Maura rce(s) Supporting Document(s) ID Date Data Source [id number] 08/02/2020 01:04:00 PM EDT [facility] [address] [place] [address] PHONE: [phone] FAX: [phone] Name .................. : JUANITO Daniels Acct Number.................. : [id number] ROOM. ................. : Number ................... : [id number] Stay type ............. : O/P Discharge Date......... ... : 08/01/20 Admit Date ......... : 08/01/20 Admit Phys .................... : MILVIA JOYCE Date of ....... : 1965 Family Phys ................... : SEQUEIRA Phone .................. : [phone] Age ................................ : 55 Film# .................. .:[id number] Sex ................................. : F Unsigned transcriptions are preliminary reports and do not represent a medical or legal document CHEST 2 VIEWS [id number] COMPLETE:08/01/20 11:39 [facility] [place] [id number] (REASON FOR CHEST: COUGH TWO VIEW CHEST, [...] MD , 08/02/20 13:04, KGG Transcribe Initials: [facility], Transcribe Date: 08/01/20 14:13, Dictation Date: Copy for: MILVIA PIZANO via fax Copy for: [address] [place] [address] REC Page 1 of 1 Name Value Range Interpretation Code Description Data Maura rce(s) Supporting Document(s) Procedure Social History Code Duration Value Status Description Data Source(s ) Alcohol intake 08/22/2021 12:00:00 AM EDT Ex-drinker (finding) comp leted Ex- drinker (finding) [facility] Tobacco use and exposure 08/17/2021 12:00:00 AM EDT Never used co mpleted Never used [facility] Cigarette pack-years 08/17/2021 12:00:00 AM EDT UNK completed [facility] Cigarettes smoked current (pack per day) - Reported 08/17/20 21 12:00:00 AM EDT UNK completed [facility] Smoking 08/17/2021 12:00:00 AM EDT Former smoker completed Former smoker [facility] Alcohol intake 08/17/2021 12:00:00 AM EDT Ex-drinker (finding) comp leted Ex- drinker (finding) [facility] Smoking 07/20/2021 12:00:00 AM EDT Patient is a former smoker completed Patient is a former smoker [facility] ([facility], ) Smoking 06/15/2021 03:41:58 PM EDT Ex-smoker (finding) complet ed Ex-smoker (finding) CJ (Cesar Barrow MD [facility]) Smoking 05/24/2021 12:00:00 AM EDT Patient is a former smoker completed Patient is a former smoker [facility] ([facility] Cardiac Catheter[facility]) Smoking 11/23/2020 11:01:50 AM EST Smokes tobacco daily (findi ng) completed Smokes tobacco daily (finding) CJ (Cesar Barrow MD [facility]) Smoking 10/05/2020 12:46:34 PM EST Ex-smoker (finding) complet ed Ex-smoker (finding) CJ (Cesar Barrow MD [facility]) Vital Signs ID Date Data Source UNK Name Value Range Interpretation Code Description Data Source(s) Systolic blood pressure 114 mm[Hg] 114 mm[Hg] [facility] Diastolic blood pressure 76 mm[Hg] 76 mm[Hg] [facility] Heart rate 94 /min 94 /min [facility] Body temperature 37.[address] [facility] Respiratory rate 16 /min 16 /min [facility] Oxygen saturation in Arterial blood by Pulse oximetry 98 % 98 % [facility] Body height 152.4 cm 152.4 cm [facility] Body weight 74.844 kg 74.844 kg [facility] Body mass index (BMI) [Ratio] 32.22 kg/m2 32.22 kg/m2 [facility] Systolic blood pressure 106 mm[Hg] 106 mm[Hg] [facility] Diastolic blood pressure 66 mm[Hg] 66 mm[Hg] [facility] Heart rate 77 /min 77 /min [facility] Body height 152.4 cm 152.4 cm [facility] Body weight 74.118 kg 74.118 kg [facility] Body mass index (BMI) [Ratio] 31.91 kg/m2 31.91 kg/m2 [facility] Oxygen saturation in Arterial blood by Pulse oximetry 99 % 99 % [facility] Diastolic blood pressure 70 mm[Hg] 70 mm[Hg] [facility] ([facility]) Body surface area Derived from formula 1.72 m2 1.72 m2 [facility] ([facility]) Body weight 75.298 kg 75.298 kg [facility] ([facility]) Body weight 166.00 [lb_av] 166.00 [lb_av] MEDEN T ([facility]) Systolic blood pressure 110 mm[Hg] 110 mm[Hg] M COUNTS INCLUDE 234 BEDS AT THE [facility] ([facility]) Heart rate 78 /min 78 /min [facility] ([facility]) Body height 60 [in_i] 60 [in_i] [facility] ([facility]) 5'0" Body mass index (BMI) [Ratio] 32.4 kg/m2 32.4 k g/m2 [facility] ([facility]) Oxygen saturation in Arterial blood by Pulse oximetry 96 % 96 % [facility] ([facility]) [place] body weight 100 [lb_av] 100 [lb_av] MEDEN T ([facility]) Heart rate 94 /min 94 /min [facility] Oxygen saturation in Arterial blood by Pulse oximetry 96 % 96 % [facility]) Body height 60 [in_i] 60 [in_i] [facility] (Osmel Alvarez MD) 5'0" Body weight 166.00 [lb_av] 166.00 [lb_av] MEDEN T (Osmle Alvarez [facility]) Body mass index (BMI) [Ratio] 32.4 kg/m2 32.4 k g/m2 [facility] Systolic blood pressure 108 mm[Hg] 108 mm[Hg] [facility] Body temperature 97.5 [degF] 97.5 [degF] [facility] Diastolic blood pressure 71 mm[Hg] 71 mm[Hg] [facility] (Osmel Alvarez MD) Body surface area Derived from formula 1.74 m2 1.74 m2 [facility] ([facility]) Body weight 76.829 kg 76.829 kg [facility] ([facility]) Diastolic blood pressure 68 mm[Hg] 68 mm[Hg] [facility] Heart rate 80 /min 80 /min [facility] ([facility]) Oxygen saturation in Arterial blood by Pulse oximetry 992 % 992 % [facility] ([facility]) Body height 60 [in_i] 60 [in_i] [facility] ([facility]) 5'0" Body weight 169.38 [lb_av] 169.38 [lb_av] MEDEN T ([facility]) Body mass index (BMI) [Ratio] 33.1 kg/m2 33.1 k g/m2 [facility] ([facility]) [place] body weight 100 [lb_av] 100 [lb_av] MEDEN T ([facility]) Systolic blood pressure 115 mm[Hg] 115 mm[Hg] M EDENT ([facility]) Body weight 172.00 [lb_av] 172.00 [lb_av] MED[facility] T (Osmel Alvarez [facility]) Systolic blood pressure 116 mm[Hg] 116 mm[Hg] [facility] Oxygen saturation in [...] Derived from formula 1.76 m2 1.76 m2 [facility] Systolic blood pressure 100 mm[Hg] 100 mm[Hg] M EDENT ([facility]) Diastolic blood pressure 68 mm[Hg] 68 mm[Hg] [facility] Heart rate 81 /min 81 /min [facility] ([facility]) Oxygen saturation in Arterial blood by Pulse oximetry 982 % 982 % [facility] ([facility]) Body height 60 [in_i] 60 [in_i] [facility] ([facility]) 5'0" Body weight 173.00 [lb_av] 173.00 [lb_av] MEDEN T ([facility]) Body mass index (BMI) [Ratio] 33.8 kg/m2 33.8 k g/m2 [facility] ([facility]) [place] body weight 100 [lb_av] 100 [lb_av] MEDEN T ([facility]) Body weight 78.473 kg 78.473 kg [facility] ([facility]) Systolic blood pressure 102 mm[Hg] 102 mm[Hg] [facility] Diastolic blood pressure 62 mm[Hg] 62 mm[Hg] [facility] ([facility]) Heart rate 82 /min 82 /min [facility] ([facility]) Oxygen saturation in Arterial blood by Pulse oximetry 942 % 942 % [facility] ([facility]) Body height 60 [in_i] 60 [in_i] [facility] ([facility]) 5'0" Body weight 172.00 [lb_av] 172.00 [lb_av] MEDEN T ([facility]) [place] body weight 100 [lb_av] 100 [lb_av] MEDEN T ([facility]) Body weight 78.019 kg 78.019 kg [facility] ([facility]) Body surface area Derived from formula 1.75 m2 1.75 m2 [facility] ([facility]) Body mass index (BMI) [Ratio] 33.6 kg/m2 33.6 k g/m2 [facility] ([facility]) Body weight 78.019 kg 78.019 [facility]) [place] body weight 100 [lb_av] 100 [lb_av] MEDEN T ([facility]) Body height 60 [in_i] 60 [in_i] [facility] ([facility]) 5'0" Body weight 172.00 [lb_av] 172.00 [lb_av] MEDEN T ([facility]) Body mass index (BMI) [Ratio] 33.6 kg/m2 33.6 k g/m2 [facility] ([facility]) Body surface area Derived from formula 1.75 m2 1.75 m2 [facility] ([facility]) Systolic blood pressure 110 mm[Hg] 110 mm[Hg] M EDENT ([facility]) Diastolic blood pressure 60 mm[Hg] 60 mm[Hg] [facility] ([facility]) Heart rate 91 /min 91 /min [facility] ([facility]) Oxygen saturation in Arterial blood by Pulse oximetry 983 % 983 % [facility] ([facility]) Oxygen saturation in Arterial blood by Pulse [...] Heart rate 90 /min 90 /min [facility] ([facility] Systolic blood pressure--sitting 120 mm[Hg] 120 mm[Hg] MED[facility] ([facility]) Diastolic blood pressure--sitting 70 mm[Hg] 70 mm[Hg] [facility] ([facility]) Body mass index (BMI) [Ratio] 34.8 kg/m2 34.8 k g/m2 [facility] ([facility]) Body weight 178.12 [lb_av] 178.12 [lb_av] MEDEN T ([facility]) Oxygen saturation in Arterial blood by Pulse oximetry 98 % 98 % [facility] ([facility]) Body surface area Derived from formula 1.78 m2 1.78 m2 [facility] ([facility]) Body height 60 [in_i] 60 [in_i] [facility] ([facility] 5'0" Heart rate 87 /min 87 /min [facility] (Osmel Alvarez [facility]) Body temperature 97.3 [degF] 97.3 [degF] [facility] (Osmel Alvarez [facility]) Systolic blood pressure 105 mm[Hg] 105 mm[Hg] M EDENT (Osmel Alvarez [facility]) Diastolic blood pressure 66 mm[Hg] 66 mm[Hg] [facility] (Osmel Alvarez [facility]) Oxygen saturation in Arterial blood by Pulse oximetry 99 % 99 % [facility] (Osmel Alvarez [facility]) 3 Liter N/C Body height 60 [in_i] 60 [in_i] [facility] (Osmel Alvarez [facility]) 5'0" Body weight 179.12 [lb_av] 179.12 [lb_av] [facility] T (Osmel Alvarez [facility]) Body mass index (BMI) [Ratio] 35.0 kg/m2 35.0 k g/m2 [facility] (Osmel Alvarez [facility]) Respiratory rate 18 /min 18 /min [facility] ( Osmel Alvarez MD) Body height 60 [in_i] 60 [in_i] MEDENT ([facility], ) 5'0" Body weight 178.00 [lb_av] 178.00 [lb_av] MEDEN T ([facility], ) Body mass index (BMI) [Ratio] 34.8 kg/m2 34.8 k g/m2 [facility] ([facility], ) [place] body weight 100 [lb_av] 100 [lb_av] MEDEN T ([facility]) Body weight 80.741 kg 80.741 kg [facility] ([facility]) Body surface area Derived from formula 1.78 m2 1.78 m2 [facility] ([facility]) [place] body weight 100 [lb_av] 100 [lb_av] MEDEN T ([facility]) Body weight 80.741 kg 80.741 kg [facility] ([facility]) Body height 60 [in_i] 60 [in_i] [facility] ([facility]) 5'0" Heart rate 91 /min 91 /min [facility] ([facility]) Oxygen saturation in Arterial blood by Pulse oximetry 992 % 992 % [facility] ([facility]) Body temperature 97.3 [degF] 97.3 [degF] [facility] ([facility]) Body temperature 97.3 [degF] 97.3 [degF] [facility] ([facility]) Oxygen saturation in Arterial blood by Pulse oximetry 992 % 992 % [facility] ([facility]) Body weight 178.00 [lb_av] 178.00 [lb_av] MEDEN T ([facility]) Body mass index (BMI) [Ratio] 34.8 kg/m2 34.8 k g/m2 [facility] ([facility]) Body surface area Derived from formula 1.78 m2 1.78 m2 [facility] ([facility]) Systolic blood pressure 110 mm[Hg] 110 mm[Hg] EDENT ([facility]) Diastolic blood pressure 60 mm[Hg] 60 mm[Hg] [facility] ([facility]) Body weight 178.00 [lb_av] 178.00 [lb_av] MEDEN T (Osm[facility] Alvarez [facility]) Body height 60 [in_i] 60 [in_i] [facility] (Osmel Alvarez [facility]) 5'0" Body mass index (BMI) [Ratio] 34.8 kg/m2 34.8 k g/m2 [facility] Body temperature 96.8 [...] % 99 % [facility] (Osmel Alvarez [facility]) Heart rate 108 /min 108 /min [facility] (Osmel Alvarez [facility]) Systolic blood pressure 131 mm[Hg] 131 mm[Hg] M EDENT (Osmel Alvarez [facility]) Body mass index (BMI) [Ratio] 35.2 kg/m2 35.2 k g/m2 [facility] (Osmel Alvarez [facility]) Diastolic blood pressure [...] Systolic blood pressure 118 mm[Hg] 118 mm[Hg] [facility] (Osmel Alvarez [facility]) Diastolic blood pressure 78 mm[Hg] 78 mm[Hg] [facility] (Osmel Alvarez [facility]) Heart rate 103 /min 103 /min [facility] (Osmel Alvarez [facility]) Oxygen saturation in Arterial blood by Pulse oximetry 99 % 99 % [facility] (Osmel Alvarez [facility]) 2 liters N/C Respiratory rate 20 /min 20 /min [facility] ( Osmel Alvarez [facility]) Body height 60 [in_i] 60 [in_i] [facility] (Osmel Alvarez [facility]) 5'0" Systolic blood pressure 102 mm[Hg] 102 mm[Hg] M EDENT ([facility], ) Diastolic blood pressure 82 mm[Hg] 82 mm[Hg] [facility] ([facility], ) Oxygen saturation in Arterial blood by Pulse oximetry 1002 % 1002 % [facility] ([facility]) Body height 60 [in_i] 60 [in_i] [facility] ([facility]) 5'0" Body weight 178.00 [lb_av] 178.00 [lb_av] MEDEN T ([facility]) Body mass index (BMI) [Ratio] 34.8 kg/m2 34.8 k g/m2 [facility] ([facility]) [place] body weight 100 [lb_av] 100 [lb_av] MEDEN T ([facility]) Body weight 80.741 kg 80.741 kg [facility] ([facility]) Body surface area Derived from formula 1.78 m2 1.78 m2 [facility] ([facility]) Heart rate 87 /min 87 /min [facility] ([facility]) Oxygen saturation in Arterial blood by Pulse oximetry 1002 % 1002 % [facility] ([facility]) Body height 60 [in_i] 60 [in_i] [facility] 5'0" Body weight 178.00 [lb_av] 178.00 [lb_av] MEDEN T ([facility]) Body mass index (BMI) [Ratio] 34.8 kg/m2 34.8 k g/m2 [facility] ([facility]) [place] body weight 100 [lb_av] 100 [lb_av] MEDEN T ([facility]) Body weight 80.741 kg 80.741 kg [facility] ([facility]) Body surface area Derived from formula 1.78 m2 1.78 m2 [facility] ([facility]) Body temperature 98.6 [degF] 98.6 [degF] [facility] ([facility]) Systolic blood pressure 110 mm[Hg] 110 mm[Hg] M EDENT ([facility]) Diastolic blood pressure 70 mm[Hg] 70 mm[Hg] [facility] ([facility]) Heart rate 103 /min 103 /min [facility] ([facility]) Body weight 177.00 [lb_av] 177.00 [lb_av] MEDEN T ([facility]) Oxygen saturation in Arterial blood by Pulse oximetry 992 % 992 % [facility] ([facility]) Body mass index (BMI) [Ratio] 34.6 kg/m2 34.6 k g/m2 [facility] ([facility]) [place] body weight 100 [lb_av] 100 [lb_av] MEDEN T ([facility]) Body weight 80.287 kg 80.287 kg [facility] ([facility]) Body surface area Derived from formula 1.77 m2 1.77 m2 [facility] ([facility]) Body height 60 [in_i] 60 [[facility]_i] [facility] 5'0" Heart rate 100 /min 100 /min [facility] (Osmel Alvarez [facility]) Oxygen saturation [...] mm[Hg] 84 mm[Hg] [facility] (Osmel Alvarez [facility]) [place] body weight 100 [lb_av] 100 [lb_av] MEDEN T ([facility]) Body weight 80.287 kg 80.287 kg [facility] ([facility]) Body surface area Derived from formula 1.77 m2 1.77 m2 [facility] ([facility]) Body height 60 [in_i] 60 [in_i] [facility] ([facility]) 5'0" Body weight 177.00 [lb_av] 177.00 [lb_av] MEDEN T ([facility]) Body mass index (BMI) [Ratio] 34.6 kg/m2 34.6 k g/m2 [facility] ([facility]) Systolic blood pressure 122 mm[Hg] 122 mm[Hg] M EDENT ([facility]) Diastolic blood pressure 78 mm[Hg] 78 mm[Hg] [facility] ([facility]) Oxygen saturation in Arterial blood by Pulse oximetry 953 % 953 % [facility] ([facility]) Body height 60 [in_i] 60 [in_i] [facility] ([facility]) 5'0" Body weight 177.00 [lb_av] 177.00 [lb_av] [facility] Body mass index (BMI) [Ratio] 34.6 kg/m2 34.6 k g/m2 [facility] ([facility]) Heart rate 94 /min 94 /min [facility] ([facility]) [place] body weight 100 [lb_av] 100 [lb_av] [facility] Body weight 80.287 kg 80.287 kg [facility] ([facility]) Body surface area Derived from formula 1.77 m2 1.77 m2 [facility] ([facility]) Diastolic blood pressure 64 mm[Hg] 64 mm[Hg] [facility] Oxygen saturation in Arterial blood by Pulse oximetry 99 % 99 % [facility] (Osmel Alvarez [facility]) Body weight 181.00 [lb_av] 181.00 [lb_av] MED[facility] T (Osmel Alvarez MD) Body height 60 [in_i] 60 [in_i] [facility] 5'0" Body mass index (BMI) [Ratio] 35.3 kg/m2 35.3 k g/m2 [facility] Body temperature 97.5 [degF] 97.5 [degF] [facility] (Osmel Alvarez MD) Systolic blood pressure 98 mm[Hg] 98 mm[Hg] [facility] Heart rate 69 /min 69 /min [facility] (Osmel Alvarez MD) Heart rate 70 /min 70 /min [facility], [facility]) Systolic blood pressure 133 mm[Hg] 133 mm[Hg] M EDENT ([facility], [facility]) Respiratory rate 18 /min 18 /min [facility] ( [facility]) Oxygen saturation in Arterial blood by Pulse oximetry 100 % 100 % [facility], [facility]) Body temperature 95.5 [degF] 95.5 [degF] [facility] ([facility], [facility]) Body weight 185.00 [lb_av] 185.00 [lb_av] MEDEN T ([facility], [facility]) Body height 60 [in_i] 60 [in_i] [facility] ([facility]) 5'0" Body mass index (BMI) [Ratio] 36.1 kg/m2 36.1 k g/m2 [facility]) Diastolic blood pressure 83 mm[Hg] 83 mm[Hg] [facility] ([facility]) Diastolic blood pressure 80 mm[Hg] 80 mm[Hg] [...] 188.00 [lb_av] MED[facility] T (Osmel Alvarez MD) Systolic blood pressure 130 mm[Hg] 130 mm[Hg] M EDENT (Osmel Alvarez MD) Body temperature 97.5 [degF] 97.5 [degF] [facility] (Osmel Alvarez MD) Body height 60 [in_i] 60 [in_i] [facility] (Osmle Alvarez [facility]) 5'0" Body weight 185.00 [lb_av] [...] MD) Heart rate 73 /min 73 /min [facility]) Oxygen saturation in Arterial blood by Pulse oximetry 99 % 99 % [facility]Osm[facility] 2l Body height 60 [in_i] 60 [in_i] [facility] ([facility]) 5'0" Body weight 192.00 [lb_av] 192.00 [lb_av] [facility] Body mass index (BMI) [Ratio] 37.5 kg/m2 37.5 k g/m2 [facility] ([facility]) [place] body weight 100 [lb_av] 100 [lb_av] [facility] Body weight 87.091 kg 87.091 kg [facility] ([facility]) ID Date Data Source [id number] 08/09/2021 08:14:13 AM EDT [facility] Name Value Range Interpretation Code Description Data Source(s) WEIGHT RECORDED 164.30 pounds 164.30 pounds [facility] Height 60 Inches 060 Inches [facility] ID Date Data Source [id number] 05/18/2021 11:18:37 AM EDT [facility] Name Value Range Interpretation Code Description Data Source(s) WEIGHT RECORDED 179.90 pounds 179.90 pounds [facility] Height 60 Inches 060 Inches [facility] ID Date Data Source [id number] 12/27/2020 10:47:31 AM [facility] Name Value Range Interpretation Code Description Data Source(s) WEIGHT RECORDED 186.00 pounds 186.00 pounds [facility] Height 60 Inches 060 Inches [facility] ID Date Data Source [id number] 03/26/2021 09:46:56 AM EDT [facility] Name Value Range Interpretation Code Description Data Source(s) WEIGHT RECORDED 183.40 pounds 183.40 pounds [facility] Height 60 Inches 060 Inches [facility] ID Date Data Source [id number] 10/05/2020 10:18:21 AM [facility] Name Value Range Interpretation Code Description Data Source(s) WEIGHT RECORDED 188.20 pounds 188.20 pounds [facility] Height 60 Inches 060 Inches [facility] ID Date Data Source [id number] 08/23/2020 09:36:26 AM EDT [facility] Name Value Range Interpretation Code Description Data Source(s) WEIGHT RECORDED 194.00 pounds 194.00 pounds [facility] Height 60 Inches 060 Inches [facility] Patient Treatment Plan of Care Planned Activity Planned Date Details Description Data Source (s) normal saline flush 0.9 % injection 3 mL 08/22/2021 02:00:00 PM EDT [facility] Albuterol 0.833 MG/ML / Ipratropium [place] 0.167 MG/M L Inhalant Solution 08/22/2021 11:05:57 AM EDT [facility] 10 ML Atropine Sulfate 0.1 MG/ML Prefilled Syringe 08/22/2021 11 :05:56 AM EDT [facility] normal saline flush 0.9 % injection 3 mL 08/22/2021 08:00:00 AM EDT [facility] normal saline flush 0.9 % injection 3 mL 08/22/2021 08:00:00 AM EDT [facility]
[2021-08-25 19:15] LABS: RSV AMPLIFICATION NEGATIVE (NEGATIVE)
[2021-08-25] MEDS ORDERED: OXYC-517 PO (19:23)
[2021-08-25] MEDS ORDERED: MAGN500C2 PO (19:23)
[2021-08-25] MEDS ORDERED: HOME MED LIST COMPLETE! XX SCH (19:25)
--- NOTE | 2021-08-25 19:30 | HPEPDOC ---
[facility] Medical History & Physical Date of Admission Aug 25, 2021 Date of Service: Aug 25, 2021 Attending Physician: Risa Crow MD History and Physical CHIEF COMPLAINT: SOB HPI: Patient is a 56-year-old female with past medical history of left lung adenocarcinoma with bone metastasis, hypertension, history of PE, atrial fibrillation on anticoagulation, thrombocytopenia, chronic anemia, GERD who presented to [facility] emergency room with the chief complaint of increased shortness of breath over the past 24 hours. The patient states her shortness of breath began yesterday and was started to be 85% at home with exertion. The patient is normally on 22.5 L of oxygen around the clock. She denies fevers, chills, lightheadedness, dizziness, recent infections. She does admit to having some anterior bandlike chest pressure which she states has worsened slightly from her baseline pressure. She follows with Dr. Alvarez as outpatient with cardiology. She had a recent cardiac ablation for atrial fibrillation on 08/22/2021. She came to the emergency room due to the symptoms above to be further evaluated. In the emergency room vital signs were stable at rest. She remained 96% on 2 L nasal cannula. With ambulation her oxygen saturation dropped into the 80s on [address] of the chest showed opacification of the left lung, a change from her prior imaging. Troponin was elevated at 1.22, H&H 9.5 30.5, creatinine 1.4 which was elevated from her baseline. ECG was within normal limits and showed no ST or T-wave changes, it was similar to her last one on file. Cardiothoracic surgery was called from the emergency room and suggested further respiratory cardiac workup but there was no surgical needs. Case was discussed with pulmonary, Dr. Loaiza, who made suggestions for possible mucous plugging. The patient has needed bronchoscopy in the past for mucous plugging also. The patient was admitt ed for left lung opacification rule out mucous plugging, acute kidney injury and elevated troponin rule out cardiac cause. PAST MEDICAL HISTORY: Left lung adenocarcinoma with bone metastasis, diagnosed in 01/2018 Hypertension. History of pulmonary embolism of unknown date. Atrial fibrillation, onset August 2020 History of chronic obstructive pulmonary disease (COPD). Thrombocytopenia. Chronic anemia. Gastroesophageal reflux disease (GERD). She was admitted February 2020 for pneumonia and November 2020 for COVID. SURGICAL HISTORY: Appendectomy. Lumbar disc surgery in the dorsal spine. Tonsillectomy. Tubal ligation. Port placement Bronchoscopy SOCIAL HISTORY: Quit smoking 2 years ago. A pack per day smoker before that. FAMILY HISTORY: Father had a stroke and had diabetes. Mother had COPD. ALLERGIES: Please see below HOME MEDICATIONS: Please see below. PHYSICAL EXAMINATION: VITAL SIGNS: 98% on 2 L at rest, other vital signs stable. GENERAL APPEARANCE: Sitting up in bed, NAD, AAOx 3 HEENT: AT/NC LUNGS: Decreased breath sounds of the complete left lung. No wheezing or rhonchi appreciated bilaterally HEART: RRR, S1S2+, no M/R/G ABDOMEN: Soft, nontender. No peripheral edema. INTEGUMENTARY: intact, no lesions, erythema MSK: Normal ROM of all joints, no edema NEURO: CN 2-12 intact, no sensory or motor deficits, no focal deficits LABORATORY DATA: Please see below MICROBIOLOGY: Follow-up blood cultures, sputum culture Imaging: CTA chest: 1. There is no evidence of a pulmonary embolism. 2. Complete opacification of the left lung. ASSESSMENT: 55 y/o F with PMH of metastatic lung cancer to the bone, COPD, anemia, atrial fibrillation status post recent cardiac ablation, history of PE admitted to medicine service for further workup of left lung opacification rule out mucous plugging versus infection versus malignancy. PLAN: Acute on chronic hypoxic respiratory failure likely secondary to left lung opacification rule out mucous plugging vs infection vs malignancy -Prior lung cancer is present in this lung but imaging appeared to be worsened -CTA chest above -Saturating well on 2 L (home O2 amt); however, with ambulation drops into the low 80s. -History of mucous plugging in the past requiring bronchoscopy -Follow up sputum culture, blood cultures -Started on guaifenesin twice a day, DuoNeb around the clock, albuterol PRN, empiric antibiotic treatment with ceftriaxone and azithromycin, percussion therapy with vest, PEP therapy, additional supplemental O2 -Pulmonary consulted. Follows with Dr. Garcia as outpatient. Discussed the case with Dr. Loaiza this evening. Left lung adenocarcinoma with bone metastasis, diagnosed in 01/2018 -Patient follows with Dr. Carter had the [facility] -She is currently undergoing chemotherapy every 3 weeks, last dose 07/28/2021 -Has undergone 57 radiation treatments -Follows with Dr. Carter hematology/oncology, Dr. Childress radiation oncology Chronic hypomagnesemia -Continue with supplementation Chronic hypokalemia -Continue with supplementation Chronic loose stools secondary to magnesium supplement -Monitor Hypertension -Stable. -Continue with home medications History of pulmonary embolism -Anticoagulation -CTA ruled out PE Atrial fibrillation, onset August 2020 -Status post cardiac ablation 08/22/2021 -Continue with rate controlling medication and anticoagulations -Fisheries Biologist is Dr. Alvarez [place], [place] COPD, not in exacerbation -Continue with treatment above Thrombocytopenia / Chronic anemia multifactorial to folic acid deficiency, iron deficiency, anemia of chronic disease -Baseline H&H and platelets -CBC daily Gastroesophageal reflux disease (GERD) -PPI DVT px -Xarelto DISPOSITION: Admitted as acute inpatient medicine service. Pulmonary consulted and will see on 08/26/2021. Vital Signs Vital Signs Date Time Temp Pulse Resp B/P (MAP) Pulse Ox O2 Delivery O2 Flow Rate FiO2 08/25/21 17:45 86 16 136/62 (86) 99 Nasal Cannula 2.0 08/25/21 12:24 97.2 Laboratory Data Labs 24H Laboratory Tests 2 08/25/21 13:51: Immature Granulocyte % (Auto) 1.9, Neutrophils (%) (Auto) 67.7H, Lymphocytes (%) (Auto) 6.6L, Monocytes (%) (Auto) 18.5H, Eosinophils (%) (Auto) 4.6H, Basophils (%) (Auto) 0.7, Neutrophils # (Auto) 8.2, Lymphocytes # (Auto) 0.8L, Monocytes # (Auto) 2.2H, Eosinophils # (Auto) 0.6H, Basophils # (Auto) 0.1, Nucleated Red Blood Cells % (auto) 0.0, Anion Gap 5L, Glomerular Filtration Rate 41.4L, Lactic Acid Level 1.0, Calcium Level 8.4L, Magnesium Level 2.0, Total Bilirubin 0.3, Aspartate Amino Transf (AST/SGOT) 37, Alanine Aminotransferase (ALT/SGPT) 17, Alkaline Phosphatase 159H, Total Creatine Kinase 41, Creatine Kinase MB < 1.0, Creatine Kinase MB Relative Index 2.44, Troponin I 1.22H, Total Protein 6.6, Albumin 2.6L, Albumin/Globulin Ratio 0.7L, Procalcitonin 0.07, Thyroid Stimulating Hormone (TSH) 0.710 08/25/21 14:18: D-Dimer, Quantitative > 4000H 08/25/21 18:27: CBC/BMP Laboratory Tests 08/25/21 13:51 Microbiology Microbiology 08/25/21 Blood Culture, Received Pending 08/25/21 Blood Culture, Received Pending Home Medications Scheduled Apixaban (Eliquis) 5 Mg Tablet, 5 MG PO BID Diltiazem HCl (Diltiazem HCl) 30 Mg Tablet, 1 TAB PO TID Dronedarone (Multaq) 400 Mg Tablet, 1 TAB PO BID Fluticasone/Vilanterol (Breo Ellipta 200-25 Mcg INH) 1 Each Blst.w.dev, 1 PUFF INH DAILY Folic Acid (Folic Acid) 0.4 Mg Tablet, 800 MCG PO DAILY Furosemide (Furosemide) 20 Mg Tablet, 1 TAB PO BID Hydrocortisone (Hydrocortisone 2.5%) 20 Gm Oint...g., 1 APLCT TOP BID apply to affected area(s) Iron Heme Polypeptide/Folic AC (Proferrin-Forte Tablet) 1 Each Tablet, 1 TAB PO DAILY Magnesium Oxide (Magnesium Oxide) 400 Mg Tablet, 400 MG PO QHS Metoprolol Tartrate (Metoprolol Tartrate) 25 Mg Tablet, 12.5 MG PO BID Pantoprazole Sodium (Pantoprazole Sodium) 40 Mg Tablet.dr, 40 MG PO DAILY Potassium Chloride (Potassium Chloride) 10 Meq Capsule.er, 10 MEQ PO 5XW MON, TUES, THURS, FRI, SAT Rivaroxaban (Xarelto) 10 Mg Tablet, 1 TAB PO DAILY Tiotropium Roberta (Spiriva Respimat) 4 Gm Mist.inhal, 2 PUFFS INH DAILY Scheduled PRN Acetaminophen (Acetaminophen) 500 Mg Tablet, 1,000 MG PO Q8H PRN for PAIN Albuterol Sulf (Albuterol Sulfate) 2.5 Mg/3 Ml Vial.neb, 2.5 MG INH Q4H PRN for SHORTNESS OF BREATH Dexamethasone (Dexamethasone) 4 Mg Tablet, 4 MG PO DAILYPRN PRN for pain Take one tablet by mouth daily during your radiation course if needed for pain. Guaifenesin (Tussin) 100 Mg/5 Ml Liquid, 200 MG PO Q4H PRN for CONGESTION Loratadine (Loratadine) 10 Mg Tablet, 10 MG PO DAILY PRN for ALLERGIES Oxycodone HCl (Oxycodone HCl) 5 Mg Tablet, 1 TAB PO QIDP PRN for pain Miscellaneous Medications Covid-19 Vacc,Mrna(Moderna)/Pf (Moderna Covid19 Vacc(Unapprov)) 100 Mcg/0.5 Ml Vial, 100 MCG IM Allergies Coded Allergies: SEAFOOD (Verified Allergy, Severe, 02/03/18) pt. carries an epi pen Penicillins (Verified Allergy, Unknown, 01/27/19) A-FIB/CHADSVASC A-FIB History Current/History of A-Fib/PAF?: Yes Current PO Anticoag Therapy: Yes Age/Risk Factor Scoring CHADSVASC: CHADSVASC Response (Comments) Value Age Risk Factor Age < 65 years old 0 Gender Risk Factor Female 1 Hx of CHF Yes 1 Hx of HTN Yes 1 Hx of Stroke/TIA/or VTE No 0 Hx of Diabetes No 0 Hx of Vascular Disease No 0 Total 3 Treatment Treatment ordered: Apixaban Risa Crow MD Aug 25, 2021 19:29
[2021-08-25] MEDS: IPRATROPIUM 0.5MG/ALBUTEROL 2.5MG INH SOL UD 3ML (DUONEB) NEB SCH (20:00)
[2021-08-25] MEDS: oxyCODONE 5MG TAB PO PRN (21:05)
[2021-08-25] MEDS: cefTRIAXone SOD 1 GM in D5W MINI-BAG PLUS 50 ML IV SCH (21:18)
[2021-08-25] MEDS: 9 PO SCH (22:27)
[2021-08-25] MEDS: MAGNESIUM OXIDE 400MG TAB (MAG-OX) PO SCH (22:27)
[2021-08-25] MEDS: guaiFENesin ER 600 MG TAB PO SCH (22:27)
[2021-08-25] MEDS: HYDROCORTISONE 2.5% 20GM OINTMENT TOP SCH (22:28)
[2021-08-25] MEDS: AZITHROMYCIN INJ 500 MG, VIAL MATE ADAPTER 1 EACH in NS 250 ML IV SCH (22:28)
[2021-08-25] MEDS: DRONEDARONE 400 MG TAB (MULTAQ) PO SCH (22:42)
[2021-08-26] MEDS: ACETAMINOPHEN 500 MG TAB PO PRN ×3 (02:01→22:38)
[2021-08-26] MEDS: IPRATROPIUM 0.5MG/ALBUTEROL 2.5MG INH SOL UD 3ML (DUONEB) NEB SCH ×7 (04:00→23:43)
[2021-08-26 06:00] VITALS: BP 123/65
[2021-08-26 07:19] LABS: HEMATOCRIT 28.2 % (36.0-47.0); MEAN CORPUSCULAR HEMOGLOBIN 34.2 pg (27.0-33.0); MEAN CORPUSCULAR HGB CONC 31.9 g/dl (32.0-36.5); MEAN CORPUSCULAR VOLUME 107.2 fl (80.0-96.0); PLATELET COUNT, AUTOMATED 183 10^3/uL (150-450); RED BLOOD COUNT 2.63 10^6/uL (4.00-5.40); WHITE BLOOD COUNT 10.2 10^3/uL (4.0-10.0)
[2021-08-26 07:33] LABS: ALBUMIN 2.3 GM/DL (3.2-5.2); BILIRUBIN,TOTAL 0.3 MG/DL (0.2-1.0); CALCIUM LEVEL 8.2 MG/DL (8.5-10.1); CREATININE FOR GFR 1.3 MG/DL (0.55-1.30); GLOMERULAR FILTRATION RATE 45.1 (>51); POTASSIUM SERUM 4.3 MEQ/L (3.5-5.1); TOTAL PROTEIN 5.9 GM/DL (6.4-8.2)
[2021-08-26] MEDS: TIOTROPIUM INHALER/CAPSULE (SPIRIVA) INH SCH (08:16)
[2021-08-26] MEDS: guaiFENesin ER 600 MG TAB PO SCH ×2 (08:54→19:53)
[2021-08-26] MEDS: DRONEDARONE 400 MG TAB (MULTAQ) PO SCH ×2 (08:54→18:58)
[2021-08-26] MEDS: PANTOPRAZOLE 40MG TAB (PROTONIX) PO SCH (08:54)
[2021-08-26] MEDS: 9 PO SCH ×2 (08:55→21:00)
[2021-08-26] MEDS: HYDROCORTISONE 2.5% 20GM OINTMENT TOP SCH ×2 (08:55→19:55)
[2021-08-26] MEDS ORDERED: APIXABAN 5 MG TAB (ELIQUIS) PO SCH (09:00)
[2021-08-26 10:47] VITALS: BP 113/66
[2021-08-26] MEDS: RIVAROXABAN 10 MG TAB (XARELTO) PO SCH (10:54)
[2021-08-26] MEDS: oxyCODONE 5MG TAB PO PRN (10:54)
[2021-08-26 14:00] VITALS: BP 108/62
--- NOTE | 2021-08-26 14:13 | IPNPDOC ---
Date Seen The patient was seen on 08/26/21. Progress Note SUBJECTIVE: No events overnight, currently on room air. Discussed with Dr. Loaiza suggest discussing with Dr. Garcia on 08/27/2021, as she has long-time patient of Dr. Garcia and has required bronchoscopies in the past. Patient denies increased shortness of breath, fevers, chills, nausea, vomiting. OBJECTIVE: PHYSICAL EXAMINATION: VITAL SIGNS: Please see below GENERAL APPEARANCE: Sitting up in bed, NAD, AAOx 3 HEENT: AT/NC LUNGS: Decreased breath sounds of the complete left lung. No wheezing or rhonchi appreciated bilaterally HEART: RRR, S1S2+, no M/R/G ABDOMEN: Soft, nontender. No peripheral edema. INTEGUMENTARY: intact, no lesions, erythema MSK: Normal ROM of all joints, no edema NEURO: CN 2-12 intact, no sensory or motor deficits, no focal deficits LABORATORY DATA: Please see below MICROBIOLOGY: Follow-up blood cultures, sputum culture Imaging: CTA chest: 1. There is no evidence of a pulmonary embolism. 2. Complete opacification of the left lung. ASSESSMENT: 55 y/o F with PMH of metastatic lung cancer to the bone, COPD, anemia, atrial fibrillation status post recent cardiac ablation, history of PE admitted to medicine service for further workup of left lung opacification rule out mucous plugging versus infection versus malignancy. PLAN: Acute on chronic hypoxic respiratory failure likely secondary to left lung opacification rule out mucous plugging vs infection vs malignancy -Prior lung cancer is present in this lung but imaging appeared to be worsened -CTA chest above -Saturating well on 2 L (home O2 amt); however, with ambulation drops into the low 80s. -History of mucous plugging in the past requiring bronchoscopies -Follow up sputum culture, blood cultures -C/w guaifenesin twice a day, DuoNeb around the clock, albuterol PRN, empiric antibiotic treatment with ceftriaxone and azithromycin, percussion therapy with vest, PEP therapy, additional supplemental O2 -Will TB with Dr. Garcia, her tunnel form placing supervisor as outpatient on 08/27/21. Discussed the case with Dr. Loaiza this morning. Elevated troponin and the presence of elevated creatinine and hypoxia -Troponin 1.22--> 1.05 -ECG showed no acute ST or T-wave changes -No abnormalities on telemetry -Discussed the case with Dr. Barba, cardiology. He is not suspecting acute coronary syndrome with indeterminate troponin elevation. There is a lack of EKG changes in the setting of already creatinine and hypoxia which leads him to come to this conclusion. -Cycle troponin, monitor on telemetry -Dr. Alvarez is her stereotype molder Elevated creatinine, not acute kidney injury -Baseline 1.16, not 30% more -Today 1.3 -Monitor with daily labs Left lung adenocarcinoma with bone metastasis, diagnosed in 01/2018 -Patient follows with Dr. Carter had the [facility] -She is currently undergoing chemotherapy every 3 weeks, last dose 07/28/2021 -Has undergone 57 radiation treatments -Follows with Dr. Carter hematology/oncology, Dr. Childress radiation oncology Chronic hypomagnesemia -Continue with supplementation Chronic hypokalemia -Continue with supplementation Chronic loose stools secondary to magnesium supplement -Monitor Hypertension -Stable. -Continue with home medications History of pulmonary embolism -Anticoagulation -CTA ruled out PE Atrial fibrillation, onset August 2020 -Status post cardiac ablation 08/22/2021 -Continue with rate controlling medication and anticoagulations -Armature Inspector is Dr. Alvarez, [place], [place] COPD, not in exacerbation -Continue with treatment above Thrombocytopenia / Chronic anemia multifactorial to folic acid deficiency, iron deficiency, anemia of chronic disease -Baseline H&H and platelets -CBC daily Gastroesophageal reflux disease (GERD) -PPI DVT px -Xarelto DISPOSITION: Admitted as acute inpatient medicine service. To discuss case with Dr. Garcia on 08/27/21. VS, I&O, 24H, Fishbone Vital Signs/I&O Vital Signs Date Time Temp Pulse Resp B/P (MAP) Pulse Ox O2 Delivery O2 Flow Rate FiO2 08/26/21 10:54 18 08/26/21 10:47 78 113/66 (82) 08/26/21 09:00 2.0 08/26/21 06:00 97.3 93 Room Air I&O- Last 24 Hours up to 6 AM 08/26/21 06:00 Intake Total 530 ml Output Total 300 ml Balance 230 ml Laboratory Data 24H LABS Laboratory Tests 2 08/25/21 14:18: D-Dimer, Quantitative > 4000H 08/25/21 18:27: Coronavirus (COVID-19)(PCR) NEGATIVE, Influenza Type A (RT-PCR) NEGATIVE, Influenza Type B (RT-PCR) NEGATIVE, Respiratory Syncytial Virus (PCR) NEGATIVE 08/25/21 21:37: Troponin I 1.05H 08/26/21 06:53: Nucleated Red Blood Cells % (auto) 0.0, Anion Gap 2L, Glomerular Filtration Rate 45.1L, Calcium Level 8.2L, Total Bilirubin 0.3, Aspartate Amino Transf (AST/SGOT) 33, Alanine Aminotransferase (ALT/SGPT) 15, Alkaline Phosphatase 143H, Total Protein 5.9L, Albumin 2.3L, Albumin/Globulin Ratio 0.6L CBC/BMP Laboratory Tests 08/26/21 06:53 Microbiology Microbiology 08/25/21 Blood Culture, Received Pending 08/25/21 Blood Culture, Received Pending Risa Crow MD Aug 26, 2021 14:13
[2021-08-26] MEDS: ONDANSETRON 4 MG TAB PO PRN (14:26)
[2021-08-26] MEDS: MAGNESIUM OXIDE 400MG TAB (MAG-OX) PO SCH (19:53)
[2021-08-26] MEDS: cefTRIAXone SOD 1 GM in D5W MINI-BAG PLUS 50 ML IV SCH (19:55)
[2021-08-26 21:00] VITALS: BP 110/66
[2021-08-26] MEDS: AZITHROMYCIN INJ 500 MG, VIAL MATE ADAPTER 1 EACH in NS 250 ML IV SCH (21:19)
[2021-08-27 02:00] VITALS: BP 106/56
[2021-08-27] MEDS: IPRATROPIUM 0.5MG/ALBUTEROL 2.5MG INH SOL UD 3ML (DUONEB) NEB SCH ×5 (03:01→19:46)
[2021-08-27 06:00] VITALS: BP 110/55
[2021-08-27 06:18] LABS: HEMATOCRIT 28.3 % (36.0-47.0); MEAN CORPUSCULAR HEMOGLOBIN 34.7 pg (27.0-33.0); MEAN CORPUSCULAR HGB CONC 31.8 g/dl (32.0-36.5); MEAN CORPUSCULAR VOLUME 109.3 fl (80.0-96.0); PLATELET COUNT, AUTOMATED 181 10^3/uL (150-450); RED BLOOD COUNT 2.59 10^6/uL (4.00-5.40); WHITE BLOOD COUNT 10.5 10^3/uL (4.0-10.0)
[2021-08-27] MEDS: ACETAMINOPHEN 500 MG TAB PO PRN (06:42)
[2021-08-27 06:45] LABS: ALBUMIN 2.4 GM/DL (3.2-5.2); BILIRUBIN,TOTAL 0.2 MG/DL (0.2-1.0); CALCIUM LEVEL 8.8 MG/DL (8.5-10.1); CREATININE FOR GFR 1.34 MG/DL (0.55-1.30); GLOMERULAR FILTRATION RATE 43.6 (>51); POTASSIUM SERUM 4.3 MEQ/L (3.5-5.1); TOTAL PROTEIN 6.3 GM/DL (6.4-8.2)
[2021-08-27] MEDS: TIOTROPIUM INHALER/CAPSULE (SPIRIVA) INH SCH (07:10)
[2021-08-27] MEDS: guaiFENesin ER 600 MG TAB PO SCH ×2 (08:32→20:14)
[2021-08-27] MEDS: PANTOPRAZOLE 40MG TAB (PROTONIX) PO SCH (08:32)
[2021-08-27] MEDS: FUROSEMIDE 20 MG TAB PO SCH (08:32)
[2021-08-27] MEDS: RIVAROXABAN 10 MG TAB (XARELTO) PO SCH (08:32)
[2021-08-27] MEDS: DRONEDARONE 400 MG TAB (MULTAQ) PO SCH ×2 (08:33→18:21)
[2021-08-27] MEDS: 9 PO SCH ×2 (08:33→20:14)
[2021-08-27] MEDS: HYDROCORTISONE 2.5% 20GM OINTMENT TOP SCH ×2 (08:34→21:00)
[2021-08-27] MEDS: oxyCODONE 5MG TAB PO PRN ×2 (13:39→20:15)
[2021-08-27] MEDS: ONDANSETRON 4 MG TAB PO PRN ×2 (13:39→20:15)
[2021-08-27 14:00] VITALS: BP 106/64
--- NOTE | 2021-08-27 15:52 | IPNPDOC ---
Date Seen The patient was seen on 08/27/21. Progress Note SUBJECTIVE: Increased wheezing, minimal. D/w Dr. Garcia, recommended one dose of acetylcysteine and she will see tonight. Patient denies increased shortness of breath, fevers, chills, nausea, vomiting. OBJECTIVE: PHYSICAL EXAMINATION: VITAL SIGNS: Please see below GENERAL APPEARANCE: Sitting up in bed, NAD, AAOx 3 HEENT: AT/NC LUNGS: Decreased breath sounds of the complete left lung. mild wheezing left lung, no rhonchi appreciated HEART: RRR, S1S2+, no M/R/G ABDOMEN: Soft, nontender. No peripheral edema. INTEGUMENTARY: intact, no lesions, erythema MSK: Normal ROM of all joints, no edema NEURO: CN 2-12 intact, no sensory or motor deficits, no focal deficits LABORATORY DATA: Please see below MICROBIOLOGY: Follow-up blood cultures, sputum culture Imaging: CTA chest: 1. There is no evidence of a pulmonary embolism. 2. Complete opacification of the left lung. ASSESSMENT: 55 y/o F with PMH of metastatic lung cancer to the bone, COPD, anemia, atrial fibrillation status post recent cardiac ablation, history of PE admitted to medicine service for further workup of left lung opacification rule out mucous plugging versus infection versus malignancy. PLAN: Acute on chronic hypoxic respiratory failure likely secondary to left lung opacification rule out mucous plugging vs infection vs malignancy -Prior lung cancer is present in this lung but imaging appeared to be worsened -CTA chest above -Saturating well on 2 L (home O2 amt). Did well with ambulation today; however, increased wheezing -History of mucous plugging in the past requiring bronchoscopies -Follow up blood cultures, was not able to give sputum cx -C/w guaifenesin twice a day, DuoNeb around the clock, albuterol PRN, empiric antibiotic treatment with ceftriaxone and azithromycin, percussion therapy with vest, PEP therapy, additional supplemental O2.Will give one dose of acetylcysteine per pulmonary -Discussed with Dr. Garcia, her director public policy. She is to see tonight, f/u recs Elevated troponin and the presence of elevated creatinine and hypoxia -Troponin 1.22--> 1.05. Today's pending -ECG showed no acute ST or T-wave changes -No abnormalities on telemetry, no chest pain, increased SOB -Discussed the case with Dr. Barba, cardiology. He is not suspecting acute coronary syndrome with indeterminate troponin elevation. There is a lack of EKG changes in the setting of already creatinine and hypoxia which leads him to come to this conclusion. -Cycle troponin, monitor on telemetry -Dr. Alvarez is her contract mail carrier Elevated creatinine, not acute kidney injury -Cr 1.3, baseline 1.16, not 30% more -Monitor with daily labs Left lung adenocarcinoma with bone metastasis, diagnosed in 01/2018 -Patient follows with Dr. Carter had the [facility] -She is currently undergoing chemotherapy every 3 weeks, last dose 07/28/2021 -Has undergone 57 radiation treatments -Follows with Dr. Carter hematology/oncology, Dr. Mak radiation oncology Chronic hypomagnesemia -Continue with supplementation Chronic hypokalemia -Continue with supplementation Chronic loose stools secondary to magnesium supplement -Monitor Hypertension -Stable. -Continue with home medications History of pulmonary embolism -Anticoagulation -CTA ruled out PE Atrial fibrillation, onset August 2020 -Status post cardiac ablation 08/22/2021 -Continue with rate controlling medication and anticoagulations -Storage Worker is Dr. Alvarez, [place], [place] COPD, not in exacerbation -Continue with treatment above Thrombocytopenia / Chronic anemia multifactorial to folic acid deficiency, iron deficiency, anemia of chronic disease -Baseline H&H and platelets -CBC daily Gastroesophageal reflux disease (GERD) -PPI DVT px -Xarelto DISPOSITION: Admitted as acute inpatient medicine service. D/w Dr. Garcia and she is to see today. F/u her recommendations for d/c VS, I&O, 24H, Fishbone Vital Signs/I&O Vital Signs Date Time Temp Pulse Resp B/P (MAP) Pulse Ox O2 Delivery O2 Flow Rate FiO2 08/27/21 14:44 18 08/27/21 09:00 2.0 08/27/21 08:33 102 110/65 08/27/21 06:00 98.2 100 Room Air I&O- Last 24 Hours up to 6 AM 08/27/21 06:00 Intake Total 1660 ml Output Total 500 ml Balance 1160 ml Laboratory Data 24H LABS Laboratory Tests 2 08/27/21 05:57: Nucleated Red Blood Cells % (auto) 0.0, Anion Gap 5L, Glomerular Filtration Rate 43.6L, Calcium Level 8.8, Total Bilirubin 0.2, Aspartate Amino Transf (AST/SGOT) 47H, Alanine Aminotransferase (ALT/SGPT) 15, Alkaline Phosphatase 140H, Total Protein 6.3L, Albumin 2.4L, Albumin/Globulin Ratio 0.6L CBC/BMP Laboratory Tests 08/27/21 05:57 Microbiology Microbiology 08/25/21 Blood Culture - Preliminary, Resulted No Growth after 48 hours. All Specime... 08/25/21 Blood Culture - Preliminary, Resulted No Growth after 48 hours. All Specime... Risa Crow MD Aug 27, 2021 15:52
[2021-08-27 16:14] LABS: TROPONIN I 0.5 NG/ML (< 0.10)
[2021-08-27] MEDS ORDERED: ACETYLCYSTEINE 20% 4 ML VIAL (200MG/ML) INH ONE (17:00)
--- NOTE | 2021-08-27 18:20 | ECGEPIP ---
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
[2021-08-27] MEDS: cefTRIAXone SOD 1 GM in D5W MINI-BAG PLUS 50 ML IV SCH (20:14)
[2021-08-27] MEDS: MAGNESIUM OXIDE 400MG TAB (MAG-OX) PO SCH (20:14)
--- NOTE | 2021-08-27 21:01 | IPN ---
PROGRESS NOTE DATE: 08/27/2021 SUBJECTIVE: Chantale is a 56-year-old female well known to me with past medical history of an adenocarcinoma of the left lung with recurrent pseudomonal infection along with history of mucous plugging on the left. Recently, had a bronchoscopy in June for mucus clearing. There is minimal mucous plugging in her left mainstem. She had done well up until a few weeks ago when she felt increased shortness of breath, a feeling in her chest that she is having a plugging sensation. She is not coughing up much now. She states that it is difficult to have cough production. She was using her vest and her nebulizer at home. Unfortunately on the day she was admitted she went 24 hours without therapy, as she was in transient to the floor. It was until Friday that her treatment started and therefore she has been on about 48 hours of treatment. As far as antibiotic selection, she is currently on ceftriaxone, azithromycin. We do not have any speciation of sputum cultures, but she does have a history of pseudomonas; therefore I would stop azithromycin and add a second agent. She did not do well with her tobramycin inhalers at home. Her main symptom was mucous plugging and exertional dyspnea. Currently, she is having exertional dyspnea with 10 feet. She states she has desaturations down to mid 60s when she ambulates because of the mucous plugging. She has had no hemoptysis, fever, chills. She did have Mucomyst on prior hospitalizations and tolerate this well. I have recommended over the phone that they initiate therapy. She is not yet received a dose. She recently had a PET scan, which showed bony metastatic disease. She is having quite a bit of pain from this. There are plans to have radiation therapy soon. PHYSICAL EXAMINATION: Temperature is 98.8, pulse is 88, respiratory rate is 18, oxygen saturation is 100% on room air, 99.0% on 2 liters. Blood pressure is 106/64 with a MAP of 78. General: Awake, alert and oriented. Affect and mood are appropriate. Nutrition and hygiene good. Oral and nasal mucosa pink and moist without lesions. Oropharynx without erythema or exudate. Neck: Full. She has increased supraclavicular fat pads. Cardiac: Current regular S1, S2 without audible murmur, rub or gallop. Pulmonary: Diffuse abnormal breath sounds, more concentrated on the left. I do hear air entry in the left lower lobe at this time. However, there is significant rhonchi. These rhonchi transmit through the right side and upper lobe. There is no expiratory wheeze. There is no dullness to percussion. There is no accessory muscle use. Abdomen: Soft, nontender. Non-distended, no hepatosplenomegaly. No masses or herniation. No recent cyanosis, clubbing or edema. LABORATORY EVALUATION: Shows white blood cell count of 10.5, however, the patient is on steroids, hemoglobin is at 9.0 with a platelet count of 181. Sodium is 139, potassium is 4.3, chloride is 102, bicarbonate of 32, BUN of 16 and creatinine of 1.34. Chest CT was performed on 08/25/2021. I have compared this to the chest CT that was obtained 08/03/2021. On the first august, there was better air entry into the left lower lobe. This is now obscured likely at the distal left mainstem bronchus. There is no significant air entry into the left side. There are chronic abnormalities of the left upper lobe, which are unchanged. I agree there is no evidence of pulmonary embolism. PROBLEM: Abnormal chest CT with likely mucous plugging of left lower lobe, easily removed previously with bronchoscopy with minimal mucus to actually suction. The patient will likely do best if we focus our techniques on mucociliary clearance. Will add Mucomyst to her regimen. I have explained to her the importance of trying to perform regimen in order to prevent hospitalization, especially in the COVID era. She does have a chest PT vest at home. She has nebulize therapy. She can nebulize with saline if needed. At this point in time, I am not concern for acute infection. She has a mild leukocytosis, which is likely from steroids. Would consider deescalation of antibiotics. If one is going to continue antibiotics and treat infection, would cover for pseudomonal infection with two antipseudomonal antibiotics. Will add Mucomyst to the regimen. A sputum culture should be obtained however as she has been on antibiotics for two days. This may not be enlightening. She should continue acapella and PEP therapy and all efforts toward pulmonary toilet. If symptoms progress, bronchoscopy could be considered.
[2021-08-27] MEDS: AZITHROMYCIN INJ 500 MG, VIAL MATE ADAPTER 1 EACH in NS 250 ML IV SCH (21:55)
[2021-08-27 22:00] VITALS: BP 110/69
[2021-08-28] MEDS: IPRATROPIUM 0.5MG/ALBUTEROL 2.5MG INH SOL UD 3ML (DUONEB) NEB SCH ×6 (00:57→19:55)
[2021-08-28 06:00] VITALS: BP 107/66
[2021-08-28 06:22] LABS: HEMATOCRIT 26.6 % (36.0-47.0); HEMOGLOBIN 8.6 g/dl (12.0-15.5); MEAN CORPUSCULAR HEMOGLOBIN 34.3 pg (27.0-33.0); MEAN CORPUSCULAR HGB CONC 32.3 g/dl (32.0-36.5); PLATELET COUNT, AUTOMATED 171 10^3/uL (150-450); RED BLOOD COUNT 2.51 10^6/uL (4.00-5.40); WHITE BLOOD COUNT 10.9 10^3/uL (4.0-10.0)
[2021-08-28 06:47] LABS: ALBUMIN 2.2 GM/DL (3.2-5.2); BILIRUBIN,TOTAL 0.2 MG/DL (0.2-1.0); CALCIUM LEVEL 8.5 MG/DL (8.5-10.1); CREATININE FOR GFR 1.36 MG/DL (0.55-1.30); GLOMERULAR FILTRATION RATE 42.8 (>51); POTASSIUM SERUM 3.8 MEQ/L (3.5-5.1); TOTAL PROTEIN 6.1 GM/DL (6.4-8.2); TROPONIN I 0.26 NG/ML (< 0.10)
[2021-08-28] MEDS ORDERED: ACETYLCYSTEINE 20% 4 ML VIAL (200MG/ML) INH SCH (08:00)
[2021-08-28] MEDS: ACETYLCYSTEINE 20% 4 ML VIAL (200MG/ML) INH SCH ×2 (08:00→19:55)
[2021-08-28] MEDS: RIVAROXABAN 10 MG TAB (XARELTO) PO SCH (08:56)
[2021-08-28] MEDS: DRONEDARONE 400 MG TAB (MULTAQ) PO SCH ×2 (08:56→17:44)
[2021-08-28] MEDS: guaiFENesin ER 600 MG TAB PO SCH ×2 (08:57→21:55)
[2021-08-28] MEDS: PANTOPRAZOLE 40MG TAB (PROTONIX) PO SCH (08:57)
[2021-08-28] MEDS: FUROSEMIDE 20 MG TAB PO SCH (08:57)
[2021-08-28] MEDS: 9 PO SCH ×2 (08:58→21:00)
[2021-08-28] MEDS: HYDROCORTISONE 2.5% 20GM OINTMENT TOP SCH ×2 (08:58→21:00)
[2021-08-28] MEDS: oxyCODONE 5MG TAB PO PRN ×2 (09:09→17:45)
[2021-08-28] MEDS: ONDANSETRON 4 MG TAB PO PRN ×2 (09:09→17:44)
[2021-08-28 14:00] VITALS: BP 113/71
--- NOTE | 2021-08-28 15:07 | IPNPDOC ---
Text Note Date of Service The patient was seen on 08/28/21. NOTE SUBJECTIVE: -Patient denies increased shortness of breath, fevers, chills, nausea, vomiting. She does however reports that she feels the same as she did when she presented, with thick mucus that is not coming up. -Walked with nursing and ambulatory saturation while on 2L was 92% OBJECTIVE: VITAL SIGNS: Please see below GENERAL APPEARANCE: Sitting up in bed, NAD, AAOx 3 HEENT: AT/NC, EOMI, MMM LUNGS: Diminished breath sounds of left lung, no verna crackles, clear right lung HEART: RRR, S1S2+, no M/R/G ABDOMEN: Soft, nontender. No peripheral edema. INTEGUMENTARY: intact, no lesions, erythema EXT: WWP, no lower extremity edema NEURO: CN 3-12 intact, no sensory or motor deficits, no focal deficits LABORATORY DATA: Reviewed WBC 10.9 Hgb 8.6 platelets 171 na 138 K 3.8 Cr 1.36 MICROBIOLOGY: Follow-up blood cultures, sputum culture, NGTD Imaging: CTA chest: 1. There is no evidence of a pulmonary embolism. 2. Complete opacification of the left lung. ASSESSMENT: 55 y/o W with metastatic lung cancer with mets to the bone, COPD, anemia, atrial fibrillation status post recent cardiac ablation and history of PE on rivaroxaban who was admitted to medicine service for acute on chronic hypoxemic respiratory failure 2/ noted left lung opacification most c/f mucous plugging versus unlikely infection. PLAN: Acute on chronic hypoxic respiratory failure with noted left lung opacification most c/f mucous plugging vs unlikely bacterial PNA -Prior lung cancer is present in this lung but imaging appeared to be acutely worsened w/ L total opacification and diminished sounds -CTA chest above -Saturating well on 2 L (home O2 amt). Did well with ambulation yesterday -History of mucous plugging in the past requiring bronchoscopies. Pulm consulted recommended aggressive mucociliary clearance with addition of inhaled acetylcysteine and pulm toilet -Follow up blood cultures and sputum cx -C/w guaifenesin twice a day -DuoNeb q6h -albuterol PRN -Discontinue empiric antibiotic treatment with ceftriaxone and azithromycin given negative procalcitonin, no fever, mild stable leukocytosis i/s/o steroid therapy -percussion therapy with vest, PEP therapy. Will add q4H hypertonic saline nebs -supplemental O2 Demand ischemia w/ Elevated troponin and the presence of elevated creatinine and hypoxemia -Trops downtrended -ECG showed no acute ST or T-wave changes -No abnormalities on telemetry, no chest pain, increased SOB -Prior hospitalist discussed the case with Dr. Barba, cardiology, who did not suspect acute coronary syndrome with indeterminate troponin elevation. Left lung adenocarcinoma with bone metastasis, diagnosed in 01/2018 -Patient follows with Dr. Carter had the [facility] -She is currently undergoing chemotherapy every 3 weeks, last dose 07/28/2021 -Has undergone 57 radiation treatments -Follows with Dr. Carter hematology/oncology, Dr. Mak radiation oncology Chronic hypomagnesemia -Continue with supplementation Chronic hypokalemia -Continue with supplementation Chronic loose stools secondary to magnesium supplement -Monitor Hypertension -Stable. -Continue with home medications History of pulmonary embolism -Anticoagulation w/ xarelto -CTA ruled out PE Atrial fibrillation, onset August 2020 -Status post cardiac ablation 08/22/2021 -Continue with rate controlling medication and anticoagulation w/ xarelto -[employer]icon[employer] Equipment Technician is Dr. Alvarez [place], [place] COPD, not in exacerbation -Continue with treatment above Thrombocytopenia / Chronic anemia multifactorial to folic acid deficiency, iron deficiency, anemia of chronic disease -Baseline H&H and platelets -CBC daily Gastroesophageal reflux disease (GERD) -PPI DVT ppx -Xarelto VS,Fishbone, I+O VS, Fishbone, I+O Laboratory Tests 08/28/21 06:08 Vital Signs Date Time Temp Pulse Resp B/P (MAP) Pulse Ox O2 Delivery O2 Flow Rate FiO2 08/28/21 06:00 98.5 87 17 107/66 (80) 98 Nasal Cannula 2.0 I&O- Last 24 Hours up to 6 AM 08/28/21 06:00 Intake Total 1560 ml Output Total 2350 ml Balance -790 ml DASHAWN ROMERO MD Aug 28, 2021 08:32
[2021-08-28] MEDS: SODIUM CHLORIDE HYPERTONIC 3% 15ML NEB SOL INH SCH ×2 (15:49→19:55)
[2021-08-28] MEDS: MAGNESIUM OXIDE 400MG TAB (MAG-OX) PO SCH (21:55)
[2021-08-28 22:00] VITALS: BP 109/67
[2021-08-29] MEDS: IPRATROPIUM 0.5MG/ALBUTEROL 2.5MG INH SOL UD 3ML (DUONEB) NEB SCH ×4 (00:15→12:01)
[2021-08-29] MEDS: SODIUM CHLORIDE HYPERTONIC 3% 15ML NEB SOL INH SCH ×4 (00:15→12:02)
[2021-08-29] MEDS: oxyCODONE 5MG TAB PO PRN ×2 (04:36→13:59)
[2021-08-29] MEDS: ONDANSETRON 4 MG TAB PO PRN ×2 (04:36→13:58)
[2021-08-29 06:00] VITALS: BP 103/52
[2021-08-29] MEDS: ACETYLCYSTEINE 20% 4 ML VIAL (200MG/ML) INH SCH (08:16)
[2021-08-29] MEDS: DRONEDARONE 400 MG TAB (MULTAQ) PO SCH (08:59)
[2021-08-29] MEDS: RIVAROXABAN 10 MG TAB (XARELTO) PO SCH (08:59)
[2021-08-29] MEDS: guaiFENesin ER 600 MG TAB PO SCH (08:59)
[2021-08-29] MEDS: PANTOPRAZOLE 40MG TAB (PROTONIX) PO SCH (09:00)
[2021-08-29] MEDS: HYDROCORTISONE 2.5% 20GM OINTMENT TOP SCH (09:00)
[2021-08-29 09:01] VITALS: BP 114/75
[2021-08-29] MEDS: 9 PO SCH (09:02)
[2021-08-29] MEDS ORDERED: MUCI600T31 PO (11:27)
--- NOTE | 2021-08-29 13:08 | DS.PDOC ---
Discharge Summary General Date of Admission Aug 25, 2021 at 18:11 Date of Discharge 08/29/2021 Attending Physician: DASHAWN ROMERO MD Discharge Summary PROCEDURES PERFORMED DURING STAY: None ADMITTING DIAGNOSES: Mucus plugging of bronchi History of Left lung adenocarcinoma with bone metastasis, diagnosed in 01/2018 DISCHARGE DIAGNOSES: Mucus plugging of bronchi Left lung adenocarcinoma with bone metastasis, diagnosed in 01/2018 Hypertension. History of pulmonary embolism of unknown date on eliquis Chronic Atrial fibrillation, onset August 2020 COPD without exacerbation Chronic thrombocytopenia. Chronic anemia. GERD Chronic hypomagnesemia Chronic hypokalemia COMPLICATIONS/CHIEF COMPLAINT: Lung Cancer,Mucas Plugging Of Bronchi. HISTORY OF PRESENT ILLNESS: 56-year-old W with past medical history of left lung adenocarcinoma with bone metastasis, hypertension, history of PE, atrial fibrillation on anticoagulation, thrombocytopenia, chronic anemia, GERD who presented to [facility] emergency room with the chief complaint of increased shortness of breath over 1 day with shortness of breath that was worse than her baseline and noted 85% saturation at home with exertion on her baseline 22.5 L of oxygen around the clock. She denied fevers, chills, lightheadedness, dizziness, recent infections. Of note, she had a recent cardiac ablation for atrial fibrillation on 08/22/2021. HOSPITAL COURSE: In the emergency room vital signs were stable at rest. She remained 96% on 2 L nasal cannula. With ambulation her oxygen saturation dropped into the 80s on 2L. CT of the chest showed opacification of the left lung, a change from her prior imaging. Troponin was elevated at 1.22, H&H 9.5 30.5, creatinine 1.4 which was mildly elevated from her baseline. ECG was within normal limits and showed no ST or T-wave changes, it was similar to her last one on file. Thoracic surgery was called from the emergency room and suggested further respiratory cardiac workup but there was no surgical needs. Case was discussed with pulmonary, Dr. Loaiza, who made suggestions for possible mucous plugging. The patient has needed bronchoscopy in the past for mucous plugging. The patient was admitted for left lung opacification rule out mucous plugging, acute kidney injury and elevated troponin rule out cardiac cause. Her troponin eventually downtrended and was attributed to demand ischemia i/s/o hypoxia 2/2 mucus plugging. Telemetry was unremarkable. Her renal function returned to recent baseline. Her hypoxemia actually did not appear acutely worse than recent baseline. She was given hypertonic saline, Mucomyst, acapella and aggressive pulmonary toilet. She was seen by her rack puller Dr. Garcia while here who agreed that she did not have clinical bacterial pneumonia and I stopped empiric antibiotics that were started on admission, on 08/28. She is now being discharged home on BID 1200 mucinex and will follow up with Dr. Garcia and PCP within 1 week of discharge. DISCHARGE MEDICATIONS: Please see below. ALLERGIES: Please see below. PHYSICAL EXAMINATION ON DISCHARGE: VITAL SIGNS: Please see below. VITAL SIGNS: Please see below GENERAL APPEARANCE: Sitting up in bed, NAD, AAOx 3 HEENT: AT/NC, EOMI, MMM LUNGS: Diminished breath sounds of left lung, no verna crackles, clear right lung HEART: RRR, S1S2+, no M/R/G ABDOMEN: Soft, nontender. No peripheral edema. INTEGUMENTARY: intact, no lesions, erythema EXT: WWP, no lower extremity edema NEURO: CN 3-12 intact, no sensory or motor deficits, no focal deficits LABORATORY DATA: Please see below. IMAGING: Imaging: CTA chest: 1. There is no evidence of a pulmonary embolism. 2. Complete opacification of the left lung. PROGNOSIS: High risk for mucus plugging and potential readmission. ACTIVITY: As tolerated DIET: regular DISCHARGE PLAN: Home with BID mucinex and close PCP and pulm follow up DISPOSITION: home DISCHARGE INSTRUCTIONS: Home with BID mucinex and close PCP and pulm follow up ITEMS TO FOLLOWUP ON ON OUTPATIENT: Chronic hypoxemic respiratory failure with episodic mucus plugging, i/s/o hx of metastatic lung CA and COPD DISCHARGE CONDITION: Stable TIME SPENT ON DISCHARGE: 40 minutes. Vital Signs/I&Os Vital Signs Date Time Temp Pulse Resp B/P (MAP) Pulse Ox O2 Delivery O2 Flow Rate FiO2 08/29/21 09:01 108 114/75 08/29/21 06:00 98.8 20 99 Nasal Cannula 3.0 I&O- Last 24 Hours up to 6 AM 08/29/21 06:00 Intake Total 890 ml Output Total 3250 ml Balance -2360 ml Microbiology Microbiology 08/27/21 Gram Stain - Final, Complete 08/27/21 Sputum Culture - Final, Complete Yeast Like Organism 08/25/21 Blood Culture - Preliminary, Resulted No Growth after 72 hours. All specime... 08/25/21 Blood Culture - Preliminary, Resulted No Growth after 72 hours. All specime... Discharge Medications Scheduled Apixaban (Eliquis) 5 Mg Tablet, 5 MG PO BID, (Reported) Diltiazem HCl (Diltiazem HCl) 30 Mg Tablet, 30 MG PO TID, (Reported) 0200,1000,1800 Dronedarone (Multaq) 400 Mg Tablet, 400 MG PO BID, (Reported) Fluticasone/Vilanterol (Breo Ellipta 200-25 Mcg INH) 1 Each Blst.w.dev, 1 PUFF INH DAILY, (Reported) Folic Acid (Folic Acid) 0.4 Mg Tablet, 800 MCG PO DAILY, (Reported) Furosemide (Furosemide) 20 Mg Tablet, 20 MG PO DAILY, (Reported) mon,fri,,fri,sat Guaifenesin (Mucinex) 600 Mg Tab.er.12h, 1,200 MG PO BID Hydrocortisone (Hydrocortisone 2.5%) 20 Gm Oint...g., 1 APLCT TOP BID apply to affected area(s) Iron Heme Polypeptide/Folic AC (Proferrin-Forte Tablet) 1 Each Tablet, 1 TAB PO DAILY, (Reported) Magnesium Oxide (Magnesium Oxide) 500 Mg Capsule, 500 MG PO QHS, (Reported) Metoprolol Tartrate (Metoprolol Tartrate) 25 Mg Tablet, 12.5 MG PO BID, (Reported) Pantoprazole Sodium (Pantoprazole Sodium) 40 Mg Tablet.dr, 40 MG PO DAILY Potassium Chloride (Potassium Chloride) 10 Meq Capsule.er, 10 MEQ PO 5XW, (Reported) MON, , , FRI, SAT Tiotropium Pawlet (Spiriva Respimat) 4 Gm Mist.inhal, 2 PUFFS INH DAILY, (Reported) Scheduled PRN Acetaminophen (Acetaminophen) 500 Mg Tablet, 1,000 MG PO Q8H PRN for MILD PAIN, (Reported) Albuterol Sulf (Albuterol Sulfate) 2.5 Mg/3 Ml Vial.neb, 2.5 MG INH Q4H PRN for SHORTNESS OF BREATH, (Reported) Dexamethasone (Dexamethasone) 4 Mg Tablet, 4 MG PO DAILYPRN PRN for pain Take one tablet by mouth daily during your radiation course if needed for pain. Loratadine (Loratadine) 10 Mg Tablet, 10 MG PO DAILY PRN for ALLERGIES, (Reported) Oxycodone HCl (Oxycodone HCl) 5 Mg Tablet, 5 MG PO QIDP PRN for MODERATE TO SEVERE PAIN, (Reported) Allergies Coded Allergies: SEAFOOD (Verified Allergy, Severe, 02/03/18) pt. carries an epi pen Penicillins (Verified Allergy, Unknown, 01/27/19) DASHAWN ROMERO MD Aug 29, 2021 11:46
== END 2021-08-29 15:02 | disposition home or self-care (01) | DRG 143 ==
LOC: M ED 12:23 → M ED INP 18:11 → ENRESERV 20:13 → M MSPAV 21:43
PROVIDERS: ADMIT Internal Medicine; ATTEND Internal Medicine
DX: J98.09 Other diseases of bronchus, not elsewhere classified (principal); J96.11 Chronic respiratory failure with hypoxia; I24.8 Other forms of acute ischemic heart disease; C79.51 Secondary malignant neoplasm of bone; D69.6 Thrombocytopenia, unspecified; E83.42 Hypomagnesemia; C34.12 Malignant neoplasm of upper lobe, left bronchus or lung; Z99.81 Dependence on supplemental oxygen; D52.9 Folate deficiency anemia, unspecified; I48.20 Chronic atrial fibrillation, unspecified; J44.9 Chronic obstructive pulmonary disease, unspecified; I10 Essential (primary) hypertension; E87.6 Hypokalemia; D63.0 Anemia in neoplastic disease; D50.9 Iron deficiency anemia, unspecified; Z86.16 Personal history of COVID-19; Z90.49 Acquired absence of other specified parts of digestive tract; Z95.828 Presence of other vascular implants and grafts; Z87.891 Personal history of nicotine dependence; Z86.711 Personal history of pulmonary embolism; Z79.01 Long term (current) use of anticoagulants; Z79.899 Other long term (current) drug therapy; Z91.013 Allergy to seafood; Z88.0 Allergy status to penicillin; Z92.3 Personal history of irradiation

== ENCOUNTER 2021-08-27 08:24 | Outpatient (RCR) | payer BC, MEDICARE ==
[~2021-08-27 08:24] MED LIST changes: +ELIQ5TAB PO; +MAGN500C2 PO
[2021-08-29] MEDS ORDERED: MUCI600T31 PO (11:27)
[2021-09-03] MEDS ORDERED: PROC10TA4 PO (15:20)
== END 2021-09-02 ==
LOC: M ONCR 08:24
PROVIDERS: ATTEND General Practice
DX: C79.51 Secondary malignant neoplasm of bone (principal)

== ENCOUNTER 2021-09-07 11:38 | Outpatient (RCR) | payer BC, MEDICARE ==
[2021-10-09] MEDS ORDERED: FURO40TA2 PO (13:12)
[2021-10-09] MEDS ORDERED: ORAL0.1P MT (14:18)
== END 2021-10-02 ==
LOC: M ONCR 11:38
PROVIDERS: ATTEND General Practice
DX: C79.51 Secondary malignant neoplasm of bone (principal)

== ENCOUNTER → 2021-10-29 | Outpatient (CLI) | payer BC, MEDICARE ==
[~2021-10-29] MED LIST changes: -CEFD1CAP8 PO; +CEFD300C41 PO; -FLUC150T PO; +FLUC150T9 PO; -LEVO500T3 PO; +LEVO500T4 PO; +LOSA50TA28 PO; -LOSA50TA88 PO; +ONDA-84 PO; -ONDA8TAB10 PO; +ORAL0.1P MT; +OXYC10TA12 PO; -PROC10TA4 PO; +PROC10TA5 PO
== END ==
LOC: M PLARAD 09:45
PROVIDERS: ATTEND Internal Medicine Medical Oncology
DX: C34.12 Malignant neoplasm of upper lobe, left bronchus or lung (principal)
CPT/HCPCS: 78815; A9552